=== PATIENT | male | born 1955 | race Caucasian/White ===

== ENCOUNTER 2022-03-07 10:42 | Inpatient (IN) | payer OTHER ==
--- OUTSIDE RECORDS SUMMARY | 2022-03-07 10:49 | XMS REPORT | Clinical Summary ---
:1955 Author Organization 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 Opioid use disorder, mild, in sustained remission multivitamin tab Take 1 tablet by 30 tablet 0 01/20/20 Active tabletIndications: mouth daily. 21 Aspiration into lower respiratory tract atorvastatin Take 40 mg by 0 Act ceci (LIPITOR) 40 mg mouth daily. tablet budesonide Inhale 0.25 mg 0 Acti ve (PULMICORT) 0.25 by nebulization mg/2 mL nebulizer daily. solutionIndications: severe chronic obstructive pulmonary disease umeclidinium-vilante Inhale by mouth. 0 Active roL 62.5-25 mcg/actuation dsdv loperamide (IMODIUM) Take 1 capsule 0 02/28/20 Active 2 mg (2 mg) by mouth 21 capsuleIndications: every 8 (eight) Aspiration into hours as needed lower respiratory for diarrhea. tract Buy over the counter megestrol (MEGACE) Give 400 mg per 0 Active 40 mg/mL suspension G-tube. baclofen (LIORESAL) Take 1 tablet 60 tablet 0 05/17/20 Active 10 mg (10 mg) by mouth 21 tabletIndications: every 12 Muscle spasm of back (twelve) hours as needed for muscle spasms. pantoprazole TAKE 1 TABLET(40 30 tablet 6 07/27/19 Active (PROTONIX) 40 mg EC MG) BY MOUTH 22 tabletIndications: DAILY Aspiration into lower respiratory tract memantine (NAMENDA) TAKE 1 TABLET(10 60 tablet 0 08/13/19 Active 10 mg MG) BY MOUTH 22 tabletIndications: TWICE DAILY Small cell carcinoma, NOS of upper lobe, lung <Right> acetaminophen-codein Take 1 tablet by 30 tablet 0 09/08/19 Active e (TYLENOL #3) 300 mouth every 6 22 mg-30 mg (six) hours as tabletIndications: needed for mild Neoplasm related pain or moderate pain (acute) pain (Marj (chronic) ZOHREH Garza). ipratropium-albutero Inhale 1 vial (3 270 mL 1 10/25/19 Active l (DUO-NEB) 0.5 mL) by 22 mg-2.5 mg/3 mL nebulization nebulizer every 6 (six) solutionIndications: hours as needed Pneumocystosis for wheezing or pneumonia shortness of breath. aluminum-magnesium Take 15 mL by 0 10/25/19 Active hydroxide-simethicon mouth every 4 22 e (MAALOX PLUS) 200 (four) hours as mg-200 mg-20 mg/5 mL needed for suspensionIndication indigestion or s: Gastroesophageal heartburn. reflux disease guaiFENesin Take 1 tablet 14 tablet 0 10/25/19 Acti ve (MUCINEX) 600 mg 12 (600 mg) by 22 hr mouth every 12 tabletIndications: (twelve) hours. Pneumonia due to other Gram-negative bacteria sucralfate Take 10 mL 420 mL 0 10/25/19 Active (CARAFATE) 100 mg/mL (1,000 mg) by 22 suspensionIndication mouth 4 (four) s: Gastroesophageal times a day reflux disease before meals and nightly. QUEtiapine Take 3 tablets 90 tablet 0 10/25/19 Acti ve (SEROquel) 25 mg (75 mg) by mouth 22 tabletIndications: at bedtime. Adjustment disorder with mixed anxiety and depressed mood Ventolin HFA 90 Inhale 1 puff by 8 g 0 10/25/19 Active mcg/actuation mouth every 6 22 inhalerIndications: (six) hours as Pneumonia due to needed for other Gram-negative wheezing or bacteria shortness of breath. levoFLOXacin Take 1 tablet 7 tablet 0 11/03/19 Act ceci (Levaquin) 500 mg (500 mg) by 22 tabletIndications: mouth daily. Upper respiratory infection, not otherwise specified amoxicillin-clavulan Take 1 tablet 14 tablet 0 11/14/19 Active ate (Augmentin) 875 (875 mg) by 22 mg-125 mg per mouth twice tabletIndications: daily. Upper respiratory infection, not otherwise specified QUEtiapine Take 1 tablet 60 tablet 0 12/29/19 Activ e (SEROquel) 25 mg (25 mg) by mouth 22 tabletIndications: every 6 (six) Anxiety disorder due hours as needed to a general medical for non-violent condition agitation (anxiety sleep). guaiFENesin Take 1 tablet 60 tablet 11 10/09/19 Expi red (MUCINEX) 600 mg 12 (600 mg) by 21 022 hr mouth every 12 tabletIndications: (twelve) hours. COVID-19, Emphysema ipratropium-albutero USE 1 VIAL VIA 270 mL 1 12/01/1909/29 Discontinued l (DUO-NEB) 0.5 NEBULIZER EVERY 022 (Reorder) mg-2.5 mg/3 mL 6 HOURS nebulizer NEEDED FOR solutionIndications: WHEEZING OR Pneumocystosis SHORTNESS OF pneumonia BREATH FOR UP TO 30 DAYS nut.tx.impaired Give 250 mL per 0 11/18/19 Discontinued digestive fxn G-tube 3 (three) (Stop Taking at (peptamen 1.5) times a day. Ariella salazar) enteral tube feedingIndications: Tube feeding diet promethazine Take 12.5 mg by 0 D iscontinued (PHENERGAN) 12.5 mg mouth every 6 022 (Stop Taking at tablet (six) hours as Disch arge) needed. ferrous sulfate 325 Take 1 tablet by 0 01/19/2016/08 Discontinued (65 FE) MG EC tablet mouth daily. (Therapy completed) aspirin 81 mg EC Take 81 mg by 0 Discontinued tablet mouth as needed. 022 (St op Taking at Discharge) OLANZapine (ZyPREXA) Take 1 tablet 30 tablet 0 02/28/2003/27 Discontinued 2.5 mg (2.5 mg) by (Reorder ) tabletIndications: mouth every 6 Adjustment disorder (six) hours as with anxiety needed for anxiety, sleep or non-violent agitation. acetaminophen-codein Take 1 tablet by 36 tablet 0 02/28/20 Discontinued e (TYLENOL #3) 300 mouth every 4 (Reorder) mg-30 mg (four) hours as tabletIndications: needed (pain). Chronic pain due to malignant neoplastic disease enoxaparin (Lovenox) Inject 0.5 mL 60 Syringe 2 02/28/2008/28 Discontinued 60 mg/0.6 mL (50 mg) under (St op Taking at prefilled the skin every Disch arge) syringeIndications: 12 (twelve) Other pulmonary hours. embolism with acute cor pulmonale oral mucosal Apply 1 application to the m outh or throat as needed for dry mouth. Buy over the counter. 0 02/28/20 Discon tinued (BIOTENE) use as directed (St op Taking at gelIndications: Disc harge) Aspiration into lower respiratory tract pantoprazole Take 1 tablet 30 tablet 0 02/29/20 Dis continued (PROTONIX) 40 mg EC (40 mg) by mouth (Reorder) tabletIndications: daily. Aspiration into lower respiratory tract senna (SENOKOT) 8.6 Take 2 tablets 0 02/28/2011/13 Discontinued mg by mouth 2 (two) ( erapy tabletIndications: times a day as completed) Aspiration into needed for lower respiratory constipation. tract Buy over the counter wound dressings Apply topically 0 02/28/20 Discontinued (TRIAD HYDROPHILIC) to affected (Therapy pste topical area(s) as comple lakhwinder) pasteIndications: needed (wound Aspiration into care/ buttocks). lower respiratory tract fluconazole Take 1 tablet 11 tablet 0 03/03/20 Expi red (DIFLUCAN) 100 mg (100 mg) by tabletIndications: mouth daily for Small cell carcinoma 12 days. of upper lobe of right lung, Aspergillosis with pneumonia, Pneumocystosis pneumonia, Acute kidney injury due to hypovolemia lidocaine Swish and 100 mL 0 03/02/20 Discontinu ed (XYLOCAINE) 20 mg/mL swallow 10 mL (Therapy (2%) viscous every 8 (eight) c ompleted) solutionIndications: hours as needed Small cell carcinoma (throat pain) of upper lobe of for up to 30 right lung, doses. Aspergillosis with pneumonia, Pneumocystosis pneumonia, Acute kidney injury due to hypovolemia memantine (Namenda) Take 1 tablet 60 tablet 0 03/02/20 Discontinued 10 mg (10 mg) by mouth tabletIndications: twice daily. 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 baclofen 5 mg Take 5 mg by 60 tablet 0 03/02/20 Dis continued tabIndications: mouth every 12 (Reorder) Muscle spasm of back (twelve) hours. QUEtiapine 3 tablets (75 270 tablet 0 03/06/20 Disc ontinued (SEROquel) 25 mg mg) by feeding (Reorder) tabletIndications: tube route at Aspiration into bedtime. lower respiratory tract QUEtiapine 3 tablets (75 270 tablet 1 03/07/20 Disc ontinued (SEROquel) 25 mg mg) by feeding (Reorder) tabletIndications: tube route at Aspiration into bedtime. lower respiratory tract baclofen 5 mg Take 5 mg by 60 tablet 2 03/08/20 Dis continued tabIndications: mouth every 12 (Dose Muscle spasm of back (twelve) hours. adjustment) baclofen (LIORESAL) Take 1/2 tablet 30 tablet 0 03/08/2003/02 0 Discontinued 10 mg (5 mg) PO q12 (Reord er) tabletIndications: PRN back spasm. Muscle spasm of back amoxicillin-clavulan Take 1 tablet 14 tablet 0 03/27/2004/07 Discontinued ate (Augmentin) 875 (875 mg) by (Reorder) mg-125 mg per mouth twice tabletIndications: daily. Upper respiratory infection, not otherwise specified OLANZapine (ZyPREXA) Take 1 tablet 30 tablet 0 03/27/2004/25 Discontinued 2.5 mg (2.5 mg) by (Reorder ) tabletIndications: mouth every 6 Adjustment disorder (six) hours as with anxiety needed for anxiety, sleep or non-violent agitation. acetaminophen-codein Take 1 tablet by 60 tablet 0 03/27/20 Discontinued e (TYLENOL #3) 300 mouth every 4 (Reorder) mg-30 mg (four) hours as tabletIndications: needed (pain). Chronic pain due to malignant neoplastic disease baclofen (LIORESAL) Take 1/2 tablet 30 tablet 0 03/29/2003/31 Discontinued 10 mg (5 mg) PO q12 (Reord er) tabletIndications: PRN back spasm. Muscle spasm of back pantoprazole Take 1 tablet 30 tablet 3 03/29/20 Dis continued (PROTONIX) 40 mg EC (40 mg) by mouth (Reorder) tabletIndications: daily. Aspiration into lower respiratory tract memantine (NAMENDA) TAKE 1 TABLET(10 60 tablet 0 04/10/2013/08 Discontinued 10 mg MG) BY MOUTH (Reorde r) tabletIndications: TWICE DAILY Small cell carcinoma, NOS of upper lobe, lung <Right> amoxicillin-clavulan Take 1 tablet 14 tablet 0 04/07/2004/13 Discontinued ate (Augmentin) 875 (875 mg) by (Reorder) mg-125 mg per mouth twice tabletIndications: daily. Upper respiratory infection, not otherwise specified amoxicillin-clavulan Take 1 tablet 14 tablet 0 04/13/2008/22 Discontinued ate (Augmentin) 875 (875 mg) by (Therapy mg-125 mg per mouth twice comp leted) tabletIndications: daily. Upper respiratory infection, not otherwise specified memantine (Namenda) 5 mg a day x 1 60 tablet 6 04/23/2009/07 Discontinued 10 mg week, then 5 mg (Sto p Taking at tabletIndications: twice daily x 1 Discharge) Small cell week, then 10 mg carcinoma, NOS of every am and 5 upper lobe, lung mg every pm x 1 <Right> week, then 10 mg twice daily for 6 months OLANZapine (ZyPREXA) Take 1 tablet 30 tablet 0 04/25/2004/27 Discontinued 2.5 mg (2.5 mg) by (Dose tabletIndications: mouth every 6 adjustment) Adjustment disorder (six) hours as with anxiety needed for anxiety, sleep or non-violent agitation. baclofen (LIORESAL) Take 1/2 tablet 30 tablet 0 04/25/2004/30 Discontinued 10 mg (5 mg) PO q12 (Dose tabletIndications: PRN back spasm. adjustment) Muscle spasm of back OLANZapine (ZyPREXA) Take 1 tablet 60 tablet 0 04/27/2007/02 Discontinued 2.5 mg (2.5 mg) by (Reorder ) tabletIndications: mouth 2 (two) Insomnia, not times a day as otherwise specified needed for sleep or non-violent agitation. amoxicillin-clavulan Take 1 tablet 14 tablet 0 06/11/2006/27 Discontinued ate (Augmentin) 875 (875 mg) by (Reorder) mg-125 mg per mouth twice tabletIndications: daily. Upper respiratory infection, not otherwise specified amoxicillin-clavulan Take 1 tablet 20 tablet 0 06/27/2008/14 Discontinued ate (Augmentin) 875 (875 mg) by mg-125 mg per mouth twice tabletIndications: daily. Upper respiratory infection, not otherwise specified acetaminophen-codein Take 1 tablet by 60 tablet 0 06/27/20 Discontinued e (TYLENOL #3) 300 mouth every 4 mg-30 mg (four) hours as tabletIndications: needed (pain). Chronic pain due to malignant neoplastic disease OLANZapine (ZyPREXA) Take 1 tablet 60 tablet 0 07/02/1909/07 Discontinued 2.5 mg (2.5 mg) by 022 (Stop Ta tristen at tabletIndications: mouth 2 (two) Discharge) Insomnia, not times a day as otherwise specified needed for sleep or non-violent agitation. QUEtiapine Take 3 tablets 90 tablet 1 07/11/19 Disc ontinued (SEROquel) 25 mg (75 mg) by mouth 22 022 (Reorder) tabletIndications: at bedtime. Adjustment disorder with mixed anxiety and depressed mood pantoprazole Take 1 tablet 90 tablet 3 07/11/19 Dis continued (PROTONIX) 40 mg EC (40 mg) by mouth 022 tabletIndications: daily. Aspiration into lower respiratory tract memantine (Namenda) 5 mg a day x 1 60 tablet 6 08/13/1909/07 Discontinued 10 mg week, then 5 mg (Sto p Taking at tabletIndications: twice daily x 1 Discharge) Small cell week, then 10 mg carcinoma, NOS of every am and 5 upper lobe, lung mg every pm x 1 <Right> week, then 10 mg twice daily for 6 months HYDROcodone-acetamin Take 1 tablet by 100 tablet 0 08/14/19 0 Discontinued ophen ([place]) 5 mouth every 6 022 (Reorder) mg-325 mg per (six) hours as tabletIndications: needed for Small cell moderate pain carcinoma, NOS of for up to 30 upper lobe, lung days. <Right>, Adjustment disorder with mixed anxiety and depressed mood QUEtiapine Take 3 tablets 90 tablet 1 08/14/19 Disc ontinued (SEROquel) 25 mg (75 mg) by mouth 22 022 (Reorder) tabletIndications: at bedtime. Adjustment disorder with mixed anxiety and depressed mood HYDROcodone-acetamin Take 1 tablet by 100 tablet 0 08/18/19 0 Discontinued ophen ([place]) 5 mouth every 6 022 (Stop Taking at mg-325 mg per (six) hours as D ischarge) tabletIndications: needed for Small cell moderate pain carcinoma, NOS of for up to 30 upper lobe, lung days. <Right>, Adjustment disorder with mixed anxiety and depressed mood amoxicillin-clavulan Take 1 tablet 6 tablet 0 09/08/1909/07 Discontinued ate (AUGMENTIN) 875 (875 mg) by 22 022 mg-125 mg per mouth every 12 tabletIndications: (twelve) hours Community acquired for 3 days. pneumonia amoxicillin-clavulan Take 1 tablet 6 tablet 0 09/08/1909/07 Discontinued ate (AUGMENTIN) 875 (875 mg) by 22 022 mg-125 mg per mouth every 12 tabletIndications: (twelve) hours Community acquired for 3 days. pneumonia amoxicillin-clavulan Take 1 tablet 6 tablet 0 09/08/1909/10 ate (AUGMENTIN) 875 (875 mg) by 22 022 mg-125 mg per mouth every 12 tabletIndications: (twelve) hours Community acquired for 3 days. pneumonia QUEtiapine Take 1 tablet 30 tablet 0 09/08/19 Disco ntinued (SEROquel) 25 mg (25 mg) by mouth 22 022 (Reorder) tabletIndications: every 6 (six) Anxiety disorder due hours as needed to a general medical for non-violent condition agitation. amoxicillin-clavulan Take 1 tablet 10 tablet 0 10/11/1910/11 Discontinued ate (Augmentin) 875 (875 mg) by 22 022 (Reorder) mg-125 mg per mouth twice tabletIndications: daily for 5 Decompensated COPD days. with acute exacerbation amoxicillin-clavulan Take 1 tablet 14 tablet 0 10/12/1910/24 Discontinued ate (Augmentin) 875 (875 mg) by 22 022 (Stop Taking at mg-125 mg per mouth twice Disc harge) tabletIndications: daily for 7 Upper respiratory days. infection, not otherwise specified fluconazole Take 1 tablet 4 tablet 0 10/26/19 Expi red (Diflucan) 200 mg (200 mg) by 22 022 tabletIndications: mouth daily for Candidal esophagitis 4 days. QUEtiapine Take 1 tablet 60 tablet 0 12/02/19 Disco ntinued (SEROquel) 25 mg (25 mg) by mouth 22 022 (Reorder) tabletIndications: every 6 (six) Anxiety disorder due hours as needed to a general medical for non-violent condition agitation (anxiety sleep). Active Problems Problem Noted Date Anemia in malignant neoplastic disease 10/16/2021 Swallowing painful 10/15/2021 Overview: Added automatically from request for rosa maria shah [id number] Community acquired pneumonia 09/03/2021 Small cell carcinoma of lung 05/17/2021 Overview: Added automatically from request for rosa maria shah [id number] Family education about pain management 05/08/2021 History of radiation therapy 02/16/2021 Pressure-induced deep tissue damage of other site 02/2021 Overview: Site: Coccyx Sepsis 01/04/2021 Pulmonary embolism 11/17/2020 Stage 1 pressure ulcer of other site 11/14/2020 Overview: Left ear- 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 related from nasal cannula Tube feeding diet 10/21/2020 Pneumonia due to other Gram-negative bacteria 10/20/19 Sequelae of hyperalimentation 10/08/2020 Adverse effect of glucocorticoids and synthetic analog ues 09/19/2020 Current use of insulin 09/19/2020 Anxiety disorder due to a general medical condition Disorder of fluid AND/OR electrolyte 09/04/2020 Sinus tachycardia 09/04/2020 Pleuritic pain 08/25/2020 Anemia of chronic disease 08/21/2020 Acute and chronic respiratory failure with hypoxia Failure to thrive 08/21/2020 Other severe protein-calorie malnutrition 08/11/2020 Dyspnea 08/10/2020 Decompensated COPD with acute exacerbation 07/30/2020 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 Discussed case with Dr. Hernandez. Will refe r patient to thoracic medical oncology and will allow them to determine whether repeat biopsy is indicated and determine further course of treatment. Discussed with patient and patient is in agreement. Patient will be placed on pending status . Other emphysema Adjustment disorder with mixed anxiety and depressed m ood Chronic pain due to malignant neoplastic disease Slow transit constipation Other psychological or physical stress, not elsewhere classified Personal history of COVID-19 Resolved Problems Problem Noted Date Resolved Date Acute kidney injury due to hypovolemia 02/16/2021 0 09/04/2021 Hypovolemia 02/16/2021 09/04/2021 High troponin I level 02/16/2021 09/04/2021 Hyperkalemia 02/16/2021 09/04/2021 Aspergillosis with pneumonia 10/25/2020 09/04/2021 Multiple lung abscesses 10/20/2020 09/04/2021 Drug induced diabetes mellitus with hyperglycemia 09/19/2020 09/04/2021 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 09/19/2020 09/04/2021 Pneumocystosis pneumonia 09/04/2020 09/04/2021 Cytomegalovirus infection 09/04/2020 09/04/2021 Diarrhea 08/21/2020 09/04/2021 Aspiration into lower respiratory tract 08/10/2020 09/04/2021 Overview: Added automatically from request for rosa maria pablo [id number] COVID-19 07/29/2020 09/04/2021 Amaurosis fugax 10/26/2017 09/04/2021 Cancer-related fatigue 09/04/2021 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 Tomography - chest abnormal 09/04/2021 Encounters Date Type Specialty Care Team Description 12/28/2021 Nurse Triage Constantine Willis NP 12/28/2021 Documentation Thoracic Medicine Henrique Plasencia MD 12/20/2021 Telephone Lolita Gonzales RN 12/11/2021 Telephone Bibiana Carrillo Oncology C, ELLA 12/05/2021 Telephone Thoracic Medicine Kasie Mehta, ELLA 12/01/2021 Nurse Triage Erin Olivares RN 11/13/2021 Orders Only Thoracic Medicine Amber Upper resp iratory MADALYN Douglas infection, no t otherwise speci fied (Primary Dx) 11/13/2021 Telephone Thoracic Medicine Daisy Shaffer, ELLA 11/02/2021 Orders Only Thoracic Medicine Fito Gutierres Upper resp iratory MD Kang infection, not otherwise speci fied (Primary Dx) 11/02/2021 Nurse Triage Karishma Chu, RN 10/24/2021 Nurse Triage Arcadio Paz, ELLA 10/19/2021 Surgery Endoscopy Edwige Leonard UPPER GASTROI NTESTINAL MD Ernesto ENDOSCOPY OF ESOPHAGUS, STOM ACH, AND DUODENUM WI TH BIOPSY 10/19/2021 Anesthesia Event Endoscopy Jenise Degroot MD Silva, Jason M, CRNA 10/18/2021 Prep for Surgery Endoscopy O'Shena Taylor Swallowi ng painful MD Terese (Primary Dx) 10/15/2021 Hospital Encounter GIM/Phase 1 Faiz Verónica, Pleuriti c pain (Primary Dx); - Small cell carcinoma of lung; 10/24/2021 [place], [place], Decompensate d COPD with acute exacerbation; DO Swallowing painful; Jluis, Ed, Pneumocystosis pneumonia; TolentinoRonnie wood V., Adjustment d isorder with mixed anxiety and depressed mood; Gastroesophageal reflux disease; Alexus, Pneumonia due t o other Gram-negative bacteria; Michelle Carr, Failure to t hrive; Candidal esopha gitis 10/15/2021 Travel 10/11/2021 Orders Only Thoracic Medicine Amber, Upper resp iratory infection, not otherwise specified (Primary Dx); MADALYN Douglas Decompensated COPD with acute exacerbation 10/10/2021 Orders Only Thoracic Medicine Shantal Patiño, Decompe nsated COPD MD Deshawn with acute exacerbation (P rimary Dx) 10/10/2021 Nurse Triage Stella Moran RN 10/10/2021 Telephone Thoracic Medicine Ileana Thrasher RN 09/07/2021 Travel 09/03/2021 Hospital Encounter Uro/Ortho/GI Faiz Verónica, Pleuriti c pain (Primary Dx); - Dyspnea; 09/07/2021 Aditya Leonard, Small cell car cinoma of lung; Community acquired pneumonia; Oh, Neoplasm relate d pain (acute) (chronic); MD Enriqueta Anxiety disorde r due to a general medical condition 09/03/2021 Travel 09/03/2021 Telephone Thoracic Medicine Michael Lopez Cough; S hortness of D, RN Breath 08/22/2021 Telephone Thoracic Medicine Stella Clark ANP 08/22/2021 Orders Only Thoracic Medicine Stella Clark ANP 08/20/2021 Orders Only Pulmonology Lela Sanon APN (Primary Dx) 08/18/2021 Orders Only Thoracic Medicine Stella Clark ANP 08/18/2021 Orders Only Thoracic Medicine Henrique Plasencia Small c ell carcinoma, NOS of upper lobe, lung <Right>; MD Nickie Adjustment diso rder with mixed anxiety and depressed mood 08/17/2021 Telephone Thoracic Medicine Zulema Cedillo RN 08/14/2021 Office Visit German Piedra, Actinic keratos is (Primary Dx); MD Kang Personal histor y of other malignant neoplasm of skin 08/14/2021 Office Visit Thoracic Medicine Henrique Plasencia Small c ell carcinoma, NOS of upper lobe, lung <Right>; MD Nickie Adjustment diso rder with mixed anxiety and depressed mood 08/14/2021 Orders Only Pulmonology Ailyn Banda FNP (Primary Dx) 08/14/2021 Orders Only Thoracic Medicine Sarah Duckworth Small c ell carcinoma, M, GLOBAL ACCOUNT DIRECTOR NOS of upper lo be, lung <Right> (P rimary Dx) 08/14/2021 Travel 08/13/2021 Hospital Encounter Radiation Ronan Marr MD Non-sma ll cell lung Oncology cancer <Unspeci fied side> 08/13/2021 Hospital Encounter Radiology Nicole Del Rosario Non-small cell lung Chunyi, GLOBAL ACCOUNT DIRECTOR cancer <Unspeci fied side> 08/13/2021 Orders Only Radiation Nicole Del Rosario Small cell carc inoma, Oncology Chunyi, GLOBAL ACCOUNT DIRECTOR NOS of upper lo be, lung <Right> 08/13/2021 Travel 08/11/2021 Refill Thoracic Medicine Henrique Plasencia Adjustm ent disorder VMD Yancy with mixed anxi ety and depressed mood 08/07/2021 Orders Only Abdirizak Ruiz, Personal his tory of MD other malignant neoplasm of ski n (Primary Dx) 07/27/2021 Telephone Radiation Jarrett, Oncology Génesis Ann RN 07/27/2021 Refill Thoracic Medicine Amber, Aspiration into lower MADALYN Douglas respiratory t ract 07/26/2021 Telephone Thoracic Medicine jyoti Manzo ts (see Génesis Trevino, RN documenation) 07/26/2021 Orders Only Radiation Mendez, Oncology Jackie, ONELIA 07/26/2021 Refill Thoracic Medicine Amber, Upper resp iratory MADALYN Douglas infection, no t otherwise speci fied 07/19/2021 Telephone Thoracic Medicine Daisy Shaffer, ELLA 07/12/2021 Telephone Thoracic Medicine Stella Clark ANP 07/11/2021 Orders Only Thoracic Medicine Amber, Adjustment disorder with mixed anxiety and depressed mood (Primary Dx); MADALYN Douglas Aspiration in to lower respiratory tract 07/11/2021 Telephone Thoracic Medicine Ileana Thrasher RN 07/02/2021 Orders Only Thoracic Medicine Amber, Insomnia, not MADALYN Douglas otherwise spe cified 06/27/2021 Orders Only Thoracic Medicine Amber, Upper resp iratory infection, not otherwise specified; MADALYN Douglas Chronic pain due to malignant neoplastic disease 06/25/2021 Orders Only Thoracic Medicine Stella Clark ANP 06/14/2021 Telephone Lolita Gonzales RN 06/11/2021 Orders Only Thoracic Medicine Amber, Upper resp iratory infection, not otherwise specified (Primary Dx); MADALYN Douglas Small cell ca rcinoma, NOS of upper lobe, lung <Right> 06/09/2021 Refill Thoracic Medicine Yudith Rivas Upper r espiratory D, RN infection, not otherwise speci fied 06/06/2021 Telephone Thoracic Medicine Jyoti Manzo, RN 05/21/2021 Surgery Endoscopy Neha Tobin, REPLACEMENT O F GASTROSTOMY TUB E, PERCUTANEOUS, I NCLUDES REMOVAL, WHEN PERFORMED, WITH OUT IMAGING OR ENDO SCOPIC GUIDANCE; NOT REQUIRING ROSA ION OF GASTROSTOMY TRA CT 05/21/2021 Hospital Encounter Endoscopy Neha Tobin MD 05/21/2021 Travel 05/17/2021 Prep for Surgery Endoscopy Elmira Lanier benita l carcinoma N, 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 OFFICER of lung <Right side> (Primary Dx) 05/17/2021 Orders Only Thoracic Medicine Amber, Muscle spa sm of back (Primary Dx); MADALYN Douglas Anxiety, not otherwise specified; Small cell carc inoma of upper lobe of right lung 05/16/2021 Orders Only Thoracic Medicine Amber, Small cell carcinoma MADALYN Douglas of lung <Righ t side> (Primary Dx) 05/16/2021 Telephone Lolita Gonzales, ELLA 05/16/2021 Telephone Lolita Gonzales RN 05/14/2021 Orders Only Giovanna Orellana Basal cell carc inoma MD Flores of nose (Primar y Dx) 04/27/2021 Orders Only Thoracic Medicine Ambre, Insomnia, not MADALYN Douglas otherwise spe cified (Primary Dx) 04/25/2021 Orders Only Thoracic Medicine Amber, Adjustment disorder with anxiety; MADALYN Douglas Muscle spasm of back 04/23/2021 Hospital Encounter Radiation Ronan Marr MD Small c ell carcinoma, Oncology NOS of upper lo be, lung <Right> 04/23/2021 Orders Only Radiation Del Rosario, Nicole Non-small cell lung Oncology Chunyi, GLOBAL ACCOUNT DIRECTOR cancer <Unspeci fied side> (Primary Dx) 04/23/2021 Orders Only Radiation Del Rosario, Nicole Small cell carc inoma, Oncology Chunyi, GLOBAL ACCOUNT DIRECTOR NOS of upper lo be, lung <Right> 04/23/2021 Orders Only Radiation Del Rosario, Nicole Oncology Chunyi, GLOBAL ACCOUNT DIRECTOR 04/23/2021 Orders Only Radiation Del Rosario, Nicole Non-small cell lung Oncology Chunyi, GLOBAL ACCOUNT DIRECTOR cancer <Unspeci fied side> (Primary Dx) 04/23/2021 Travel 04/20/2021 Hospital Encounter Radiology Henrique Plasencia cell carcinomaNickie MD NOS of upper lo be, lung <Right> 04/20/2021 Ancillary Procedure Radiology Henrique Plasencia cell carcinomaNickie MD NOS of upper lo be, lung <Right> 04/20/2021 Travel 04/16/2021 Hospital Encounter Speech Pathology Sravan, Eliz pensated COPD with acute exacerbation; Mary Beth L, Aspergillosis w ith pneumonia 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 04/16/2021 Office Visit Hematology Kang Monreal, Other pulmon dontesally CARDENAS embolism with a cute cor pulmonale 04/16/2021 Travel 04/13/2021 Orders Only Thoracic Medicine Wayne Giraldo, Upper res piratory PharmD infection, not otherwise speci fied 04/07/2021 Orders Only Thoracic Medicine Shantal Patiño, Upper r espiratory MD Deshawn infection, not otherwise speci fied 04/07/2021 Nurse Triage Juan Taylor, RN 04/05/2021 Orders Only Head and Neck Amber, Medical Oncology MADALYN Douglas 04/04/2021 Refill Thoracic Surgery Enriqueta Gonzalez Chronic pain due to A, RN malignant neopl astic disease 04/04/2021 Refill Thoracic Medicine Sarika Sung K, Small ce ll carcinoma, MERCHANDISE EXECUTION LEADER NOS of upper lo be, lung <Right> 04/03/2021 Nutrition Nutrition Alina Marr, Decompensated COPD with acute exacerbation; RD Aspergillosis w ith pneumonia 03/30/2021 Orders Only Thoracic Medicine Stella Clark ANP 03/29/2021 Orders Only Thoracic Medicine Amber, Muscle spa sm of back; MADALYN Douglas Aspiration in to lower respiratory tract 03/27/2021 Orders Only Thoracic Medicine Amber, Upper resp iratory infection, not otherwise specified (Primary Dx); MADALYN Douglas Adjustment di sorder with anxiety; Chronic pain du e to malignant neoplastic disease 03/27/2021 Refill Thoracic Medicine Jacque, Chronic pa in due to malignant neoplastic disease; Nanette Stewart APN Adjustment dis order with anxiety 03/09/2021 Orders Only Thoracic Medicine Tanja Perez J, PharmD 03/08/2021 Orders Only Thoracic Medicine Amber, Muscle spa sm of back MADALYN Douglas 03/07/2021 Orders Only Thoracic Medicine Tanja Perez Aspiratio n into lower J, PharmD respiratory tra ct 03/07/2021 Documentation Benedicto Lang, Follow-up (f/ u voicemail messa ge) 03/07/2021 Refill Infectious Yudith Rivas Aspiration i nto lower Diseases Fallno, RN respiratory tra ct 03/07/2021 Documentation Sahara Langley, ELLA after 03/07/2021 Immunizations Name Administration Dates Next Due Bamlanivimab 07/29/2020 () Influenza Split High Dose 03/29/2020 Preservative Free IM Zoster Recombinant 03/29/2020 remdesivir 08/22/2020, 08/22/2020, 08/21/2020, 08/20/2020, 08/19/2020, 08/18/2020, 08/03/2020, 08/02/2020, 08/02/2020, 08/01/2020, 07/31/2020, 07/30/2020 Surgical History Surgery Date Site/Laterality Comments [place] EGD BALLOON DILATION 09/29/2020 Esophagus/N/A Procedur e: UPPER ESOPHAGUS <30 MM DIAM GASTROINTE STINAL ENDOSCOPY WITH BALLOON DILATION OF ESOPHAGUS; Surgeon: Owen real MD; Location: MAIN E NDOSCOPY; Service: GASTROE NTEROLOGY [place] EGD PERCUTANEOUS 09/29/2020 Abdomen/N/A Procedure: U PPER PLACEMENT GASTROSTOMY TUBE GASTR OINTESTINAL ENDOSCOPY WITH DIRECTED PLACEME NT OF PERCUTANEOUS (PE G) GASTROSTOMY TUBE; Surgeon: Desiree Leonard MD; Location: MAIN E NDOSCOPY; Service: GASTROE NTEROLOGY [place] BRNCHSC W/BRNCL ALVEOLAR 10/23/2020 N/A Proc edure: FLEXIBLE LAVAGE BRONCHOSCOPY WIT H BRONCHIAL ALVEOLAR LAVAGE; Surgeon: Krys Brewer MD; Lo cation: MAIN PULM PROC; Servi ce: PULMONARY [place] PERQ REPLACEMENT GTUBE 05/21/2021 N/A Proced ure: REPLACEMENT OF NOT REQ REVJ GSTRST TRC GASTROST RANDEE TUBE, PERCUTANEOUS, INCLUDES REMOVAL , WHEN PERFORMED, WITHO UT IMAGING OR ENDOSCOPIC DENNIS NCE; NOT REQUIRING REVISI ON OF GASTROSTOMY TRAC T; Surgeon: Neha Tobin MD ; Location: MAIN ENDOSCOPY; Service: GASTROENTEROLOGY [place] EGD TRANSORAL BIOPSY 10/19/2021 Esophagus/N/A Procedur e: UPPER SINGLE/MULTIPLE GASTROINTESTINAL ENDOSCOPY OF ESOPHAGUS, STOMA CH, AND DUODENUM WITH BI OPSY; Surgeon: Edwige zimmerman MD; Location: MAIN E NDOSCOPY; Service: GASTROE NTEROLOGY Medical History Medical History Date Comments Emphysema Basal cell carcinoma of skin 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 04/21/2020 Chronic alcoholism in remission Opioid abuse, in remission Drug induced diabetes mellitus with hyperglycemia 09/19/2020 Family History Medical History Relation Name Comments Emphysema Maternal Grandfather Lung cancer Sister Relation Name Status Comments Maternal Grandfather Sister Social History Tobacco Use Types Packs/Day Years Used Date Former Smoker Cigarettes 1.5 1969 - 2019 Smokeless Tobacco: Never Used Alcohol Use Standard Drinks/Week Comments Not Currently 0 (1 standard drink = 0.6 oz pure .5 gal zachary of vodka daily 15 years alcohol) ago Alcohol Habits Answer Date Recorded How often do you have a drink Not asked containing alcohol? How many drinks containing alcohol do Not asked you have on a typical day when you are drinking? How often do you have six or more Not asked drinks on one occasion? Comment: .5 gallon of vodka daily 15 years 2019 ago Sex Assigned at Date Recorded Not on file Job Start Date Occupation Industry Not on file Not on file Not on file Obstetrics History Last Filed Vital Signs Vital Sign Reading Time Taken Comments Blood Pressure 119/78 10/24/2021 12:30 PM CDT Pulse 74 10/24/2021 4:41 PM CDT Temperature 36.9 C (98.4 F) 10/24/2021 11:48 AM CDT Respiratory Rate 18 10/24/2021 4:41 PM CDT Oxygen Saturation 96% 10/24/2021 12:30 PM CDT Inhaled Oxygen Concentration - - Weight 55 kg (121 lb 4.1 oz) 10/24/2021 4:00 AM CDT Height 167.6 cm (5' 6") 10/15/2021 9:57 AM CDT Body Mass Index 19.57 10/15/2021 9:57 AM CDT Plan of Treatment Health Maintenance Due Date Last Done Comments COVID-19 Vaccination (#1) 11/23/1960 Procedures Procedure Name Priority Date/Time Associated Comments Diagnosis FRACTIONATED BILIRUBIN AM 10/24/2021 5:53 Re sults for this AM CDT procedure are i n the results section. TOTAL PROTEIN AM 10/24/2021 5:53 Results for this AM CDT procedure are i n the results section. ASPARTATE AM 10/24/2021 5:53 Results for this AMINOTRANSFERASE AM CDT procedure a re in the results section. ALANINE AMINOTRANSFERASE AM 10/24/2021 5:53 Results for this AM CDT procedure are i n the results section. ALKALINE PHOSPHATASE AM 10/24/2021 5:53 Resu lts for this AM CDT procedure are i n the results section. ALBUMIN LEVEL AM 10/24/2021 5:53 Results for this AM CDT procedure are i n the results section. CALCIUM LEVEL TOTAL AM 10/24/2021 5:53 Resul ts for this AM CDT procedure are i n the results section. .GLOMERULAR FILTRATION AM 10/24/2021 5:53 Re sults for this RATE AM CDT procedure are i n the results section. SERUM CREATININE AM 10/24/2021 5:53 Results for this AM CDT procedure are i n the results section. ELECTROLYTE PANEL AM 10/24/2021 5:53 Results for this AM CDT procedure are i n the results section. BLOOD UREA NITROGEN AM 10/24/2021 5:53 Resul ts for this AM CDT procedure are i n the results section. GLUCOSE LEVEL AM 10/24/2021 5:53 Results for this AM CDT procedure are i n the results section. MANUAL DIFFERENTIAL AM 10/24/2021 5:53 Resul ts for this AM CDT procedure are i n the results section. Results CBC AM 10/24/2021 5:53 Results for this AM CDT procedure are i n the results section. PHOSPHORUS LEVEL AM 10/24/2021 5:53 Results for this AM CDT procedure are i n the results section. MAGNESIUM LEVEL AM 10/24/2021 5:53 Results f or this AM CDT procedure are i n the results section. COMPREHENSIVE METABOLIC AM 10/24/2021 5:53 PANEL AM CDT COMPLETE BLOOD COUNT W/ AM 10/24/2021 5:53 DIFFERENTIAL AM CDT OSCILLATORY PEP Routine 10/23/2021 8:00 AM CDT FRACTIONATED BILIRUBIN AM 10/23/2021 7:28 Re sults for this AM CDT procedure are i n the results section. TOTAL PROTEIN AM 10/23/2021 7:28 Results for this AM CDT procedure are i n the results section. ASPARTATE AM 10/23/2021 7:28 Results for this AMINOTRANSFERASE AM CDT procedure a re in the results section. ALANINE AMINOTRANSFERASE AM 10/23/2021 7:28 Results for this AM CDT procedure are i n the results section. ALKALINE PHOSPHATASE AM 10/23/2021 7:28 Resu lts for this AM CDT procedure are i n the results section. ALBUMIN LEVEL AM 10/23/2021 7:28 Results for this AM CDT procedure are i n the results section. CALCIUM LEVEL TOTAL AM 10/23/2021 7:28 Resul ts for this AM CDT procedure are i n the results section. .GLOMERULAR FILTRATION AM 10/23/2021 7:28 Re sults for this RATE AM CDT procedure are i n the results section. SERUM CREATININE AM 10/23/2021 7:28 Results for this AM CDT procedure are i n the results section. ELECTROLYTE PANEL AM 10/23/2021 7:28 Results for this AM CDT procedure are i n the results section. BLOOD UREA NITROGEN AM 10/23/2021 7:28 Resul ts for this AM CDT procedure are i n the results section. GLUCOSE LEVEL AM 10/23/2021 7:28 Results for this AM CDT procedure are i n the results section. MANUAL DIFFERENTIAL AM 10/23/2021 7:28 Resul ts for this AM CDT procedure are i n the results section. Results CBC AM 10/23/2021 7:28 Results for this AM CDT procedure are i n the results section. PHOSPHORUS LEVEL AM 10/23/2021 7:28 Results for this AM CDT procedure are i n the results section. MAGNESIUM LEVEL AM 10/23/2021 7:28 Results f or this AM CDT procedure are i n the results section. COMPREHENSIVE METABOLIC AM 10/23/2021 7:28 PANEL AM CDT COMPLETE BLOOD COUNT W/ AM 10/23/2021 7:28 DIFFERENTIAL AM CDT OSCILLATORY PEP Routine 10/22/2021 2:00 PM CDT OSCILLATORY PEP Routine 10/22/2021 8:00 AM CDT FRACTIONATED BILIRUBIN AM 10/22/2021 6:48 Re sults for this AM CDT procedure are i n the results section. TOTAL PROTEIN AM 10/22/2021 6:48 Results for this AM CDT procedure are i n the results section. ASPARTATE AM 10/22/2021 6:48 Results for this AMINOTRANSFERASE AM CDT procedure a re in the results section. ALANINE AMINOTRANSFERASE AM 10/22/2021 6:48 Results for this AM CDT procedure are i n the results section. ALKALINE PHOSPHATASE AM 10/22/2021 6:48 Resu lts for this AM CDT procedure are i n the results section. ALBUMIN LEVEL AM 10/22/2021 6:48 Results for this AM CDT procedure are i n the results section. CALCIUM LEVEL TOTAL AM 10/22/2021 6:48 Resul ts for this AM CDT procedure are i n the results section. .GLOMERULAR FILTRATION AM 10/22/2021 6:48 Re sults for this RATE AM CDT procedure are i n the results section. SERUM CREATININE AM 10/22/2021 6:48 Results for this AM CDT procedure are i n the results section. ELECTROLYTE PANEL AM 10/22/2021 6:48 Results for this AM CDT procedure are i n the results section. BLOOD UREA NITROGEN AM 10/22/2021 6:48 Resul ts for this AM CDT procedure are i n the results section. GLUCOSE LEVEL AM 10/22/2021 6:48 Results for this AM CDT procedure are i n the results section. MANUAL DIFFERENTIAL AM 10/22/2021 6:48 Resul ts for this AM CDT procedure are i n the results section. Results CBC AM 10/22/2021 6:48 Results for this AM CDT procedure are i n the results section. IMMUNOGLOBULIN A SERUM Now 10/22/2021 6:48 Re sults for this AM CDT procedure are i n the results section. IMMUNOGLOBULIN G SERUM Now 10/22/2021 6:48 Re sults for this AM CDT procedure are i n the results section. IGG SUBCLASSES, SERUM Now 10/22/2021 6:48 Res ults for this AM CDT procedure are i n the results section. PHOSPHORUS LEVEL AM 10/22/2021 6:48 Results for this AM CDT procedure are i n the results section. MAGNESIUM LEVEL AM 10/22/2021 6:48 Results f or this AM CDT procedure are i n the results section. COMPREHENSIVE METABOLIC AM 10/22/2021 6:48 PANEL AM CDT COMPLETE BLOOD COUNT W/ AM 10/22/2021 6:48 DIFFERENTIAL AM CDT OSCILLATORY PEP Routine 10/21/2021 8:00 PM CDT XR CHEST 1 VW Routine 10/21/2021 3:44 Results for this PM CDT procedure are i n the results section. FUNGAL BLOODCULTURE Now 10/21/2021 9:09 Resul ts for this AM CDT procedure are i n the results section. BLOODCULTURE Now 10/21/2021 9:09 Results for this AM CDT procedure are i n the results section. FRACTIONATED BILIRUBIN AM 10/21/2021 6:02 Re sults for this AM CDT procedure are i n the results section. TOTAL PROTEIN AM 10/21/2021 6:02 Results for this AM CDT procedure are i n the results section. ASPARTATE AM 10/21/2021 6:02 Results for this AMINOTRANSFERASE AM CDT procedure a re in the results section. ALANINE AMINOTRANSFERASE AM 10/21/2021 6:02 Results for this AM CDT procedure are i n the results section. ALKALINE PHOSPHATASE AM 10/21/2021 6:02 Resu lts for this AM CDT procedure are i n the results section. ALBUMIN LEVEL AM 10/21/2021 6:02 Results for this AM CDT procedure are i n the results section. CALCIUM LEVEL TOTAL AM 10/21/2021 6:02 Resul ts for this AM CDT procedure are i n the results section. .GLOMERULAR FILTRATION AM 10/21/2021 6:02 Re sults for this RATE AM CDT procedure are i n the results section. SERUM CREATININE AM 10/21/2021 6:02 Results for this AM CDT procedure are i n the results section. ELECTROLYTE PANEL AM 10/21/2021 6:02 Results for this AM CDT procedure are i n the results section. BLOOD UREA NITROGEN AM 10/21/2021 6:02 Resul ts for this AM CDT procedure are i n the results section. GLUCOSE LEVEL AM 10/21/2021 6:02 Results for this AM CDT procedure are i n the results section. MANUAL DIFFERENTIAL AM 10/21/2021 6:02 Resul ts for this AM CDT procedure are i n the results section. Results CBC AM 10/21/2021 6:02 Results for this AM CDT procedure are i n the results section. PHOSPHORUS LEVEL AM 10/21/2021 6:02 Results for this AM CDT procedure are i n the results section. MAGNESIUM LEVEL AM 10/21/2021 6:02 Results f or this AM CDT procedure are i n the results section. COMPREHENSIVE METABOLIC AM 10/21/2021 6:02 PANEL AM CDT COMPLETE BLOOD COUNT W/ AM 10/21/2021 6:02 DIFFERENTIAL AM CDT EKG, 12-LEAD (PORTABLE) Routine 10/21/2021 XR ABDOMEN 1 VW PORTABLE Routine 10/20/2021 2:19 Results for this PM CDT procedure are i n the results section. OSCILLATORY PEP Routine 10/20/2021 2:00 PM CDT OSCILLATORY PEP Routine 10/20/2021 8:00 AM CDT FRACTIONATED BILIRUBIN AM 10/20/2021 6:10 Re sults for this AM CDT procedure are i n the results section. TOTAL PROTEIN AM 10/20/2021 6:10 Results for this AM CDT procedure are i n the results section. ASPARTATE AM 10/20/2021 6:10 Results for this AMINOTRANSFERASE AM CDT procedure a re in the results section. ALANINE AMINOTRANSFERASE AM 10/20/2021 6:10 Results for this AM CDT procedure are i n the results section. ALKALINE PHOSPHATASE AM 10/20/2021 6:10 Resu lts for this AM CDT procedure are i n the results section. ALBUMIN LEVEL AM 10/20/2021 6:10 Results for this AM CDT procedure are i n the results section. CALCIUM LEVEL TOTAL AM 10/20/2021 6:10 Resul ts for this AM CDT procedure are i n the results section. .GLOMERULAR FILTRATION AM 10/20/2021 6:10 Re sults for this RATE AM CDT procedure are i n the results section. SERUM CREATININE AM 10/20/2021 6:10 Results for this AM CDT procedure are i n the results section. ELECTROLYTE PANEL AM 10/20/2021 6:10 Results for this AM CDT procedure are i n the results section. BLOOD UREA NITROGEN AM 10/20/2021 6:10 Resul ts for this AM CDT procedure are i n the results section. GLUCOSE LEVEL AM 10/20/2021 6:10 Results for this AM CDT procedure are i n the results section. MANUAL DIFFERENTIAL AM 10/20/2021 6:10 Resul ts for this AM CDT procedure are i n the results section. Results CBC AM 10/20/2021 6:10 Results for this AM CDT procedure are i n the results section. PHOSPHORUS LEVEL AM 10/20/2021 6:10 Results for this AM CDT procedure are i n the results section. MAGNESIUM LEVEL AM 10/20/2021 6:10 Results f or this AM CDT procedure are i n the results section. COMPREHENSIVE METABOLIC AM 10/20/2021 6:10 PANEL AM CDT COMPLETE BLOOD COUNT W/ AM 10/20/2021 6:10 DIFFERENTIAL AM CDT OSCILLATORY PEP Routine 10/19/2021 8:00 PM CDT OSCILLATORY PEP Routine 10/19/2021 2:00 PM CDT PATHOLOGY BIOPSY Routine 10/19/2021 1:35 Swallowing Results for this INTERPRETATION PM CDT painful procedure are in the results section. UPPER GASTROINTESTINAL 10/19/2021 1:14 Swallowing ENDOSCOPY OF ESOPHAGUS, PM CDT painful STOMACH, AND DUODENUM WITH BIOPSY OSCILLATORY PEP Routine 10/19/2021 9:01 AM CDT OSCILLATORY PEP Routine 10/19/2021 9:01 AM CDT FRACTIONATED BILIRUBIN AM 10/19/2021 7:18 Re sults for this AM CDT procedure are i n the results section. TOTAL PROTEIN AM 10/19/2021 7:18 Results for this AM CDT procedure are i n the results section. ASPARTATE AM 10/19/2021 7:18 Results for this AMINOTRANSFERASE AM CDT procedure a re in the results section. ALANINE AMINOTRANSFERASE AM 10/19/2021 7:18 Results for this AM CDT procedure are i n the results section. ALKALINE PHOSPHATASE AM 10/19/2021 7:18 Resu lts for this AM CDT procedure are i n the results section. ALBUMIN LEVEL AM 10/19/2021 7:18 Results for this AM CDT procedure are i n the results section. CALCIUM LEVEL TOTAL AM 10/19/2021 7:18 Resul ts for this AM CDT procedure are i n the results section. .GLOMERULAR FILTRATION AM 10/19/2021 7:18 Re sults for this RATE AM CDT procedure are i n the results section. SERUM CREATININE AM 10/19/2021 7:18 Results for this AM CDT procedure are i n the results section. ELECTROLYTE PANEL AM 10/19/2021 7:18 Results for this AM CDT procedure are i n the results section. BLOOD UREA NITROGEN AM 10/19/2021 7:18 Resul ts for this AM CDT procedure are i n the results section. GLUCOSE LEVEL AM 10/19/2021 7:18 Results for this AM CDT procedure are i n the results section. MANUAL DIFFERENTIAL AM 10/19/2021 7:18 Resul ts for this AM CDT procedure are i n the results section. Results CBC AM 10/19/2021 7:18 Results for this AM CDT procedure are i n the results section. PHOSPHORUS LEVEL AM 10/19/2021 7:18 Results for this AM CDT procedure are i n the results section. MAGNESIUM LEVEL AM 10/19/2021 7:18 Results f or this AM CDT procedure are i n the results section. COMPREHENSIVE METABOLIC AM 10/19/2021 7:18 PANEL AM CDT COMPLETE BLOOD COUNT W/ AM 10/19/2021 7:18 DIFFERENTIAL AM CDT XR CHEST 1 VW Routine 10/18/2021 4:15 Results for this PM CDT procedure are i n the results section. POC GLUCOSE SCREEN Routine 10/18/2021 6:47 Result s for this AM CDT procedure are i n the results section. FRACTIONATED BILIRUBIN AM 10/18/2021 4:25 R esults for this AM CDT procedure are i n the results section. TOTAL PROTEIN AM 10/18/2021 4:25 Results for this AM CDT procedure are i n the results section. ASPARTATE AM 10/18/2021 4:25 Results for this AMINOTRANSFERASE AM CDT procedure a re in the results section. ALANINE AMINOTRANSFERASE AM 10/18/2021 4:25 Results for this AM CDT procedure are i n the results section. ALKALINE PHOSPHATASE AM 10/18/2021 4:25 Resu lts for this AM CDT procedure are i n the results section. ALBUMIN LEVEL AM 10/18/2021 4:25 Results for this AM CDT procedure are i n the results section. CALCIUM LEVEL TOTAL AM 10/18/2021 4:25 Resul ts for this AM CDT procedure are i n the results section. .GLOMERULAR FILTRATION AM 10/18/2021 4:25 Re sults for this RATE AM CDT procedure are i n the results section. SERUM CREATININE AM 10/18/2021 4:25 Results for this AM CDT procedure are i n the results section. ELECTROLYTE PANEL AM 10/18/2021 4:25 Results for this AM CDT procedure are i n the results section. BLOOD UREA NITROGEN AM 10/18/2021 4:25 Resul ts for this AM CDT procedure are i n the results section. GLUCOSE LEVEL AM 10/18/2021 4:25 Results for this AM CDT procedure are i n the results section. MANUAL DIFFERENTIAL AM 10/18/2021 4:25 Resul ts for this AM CDT procedure are i n the results section. Results CBC AM 10/18/2021 4:25 Results for this AM CDT procedure are i n the results section. PHOSPHORUS LEVEL AM 10/18/2021 4:25 Results for this AM CDT procedure are i n the results section. MAGNESIUM LEVEL AM 10/18/2021 4:25 Results f or this AM CDT procedure are i n the results section. COMPREHENSIVE METABOLIC AM 10/18/2021 4:25 PANEL AM CDT COMPLETE BLOOD COUNT W/ AM 10/18/2021 4:25 DIFFERENTIAL AM CDT OSCILLATORY PEP Routine 10/18/2021 2:00 AM CDT OSCILLATORY PEP Routine 10/17/2021 8:00 PM CDT OSCILLATORY PEP Routine 10/17/2021 2:01 PM CDT VANCOMYCIN LEVEL TROUGH Timed Study 10/17/2021 11:50 Results for this AM CDT procedure are i n the results section. OSCILLATORY PEP Routine 10/17/2021 9:31 AM CDT OSCILLATORY PEP Routine 10/17/2021 9:31 AM CDT OSCILLATORY PEP Routine 10/17/2021 9:31 AM CDT OSCILLATORY PEP Routine 10/17/2021 9:31 AM CDT OSCILLATORY PEP Routine 10/17/2021 9:31 AM CDT PROCALCITONIN AM 10/17/2021 3:59 Results for this AM CDT procedure are i n the results section. FRACTIONATED BILIRUBIN AM 10/17/2021 3:59 Re sults for this AM CDT procedure are i n the results section. TOTAL PROTEIN AM 10/17/2021 3:59 Results for this AM CDT procedure are i n the results section. ASPARTATE AM 10/17/2021 3:59 Results for this AMINOTRANSFERASE AM CDT procedure a re in the results section. ALANINE AMINOTRANSFERASE AM 10/17/2021 3:59 Results for this AM CDT procedure are i n the results section. ALKALINE PHOSPHATASE AM 10/17/2021 3:59 Resu lts for this AM CDT procedure are i n the results section. ALBUMIN LEVEL AM 10/17/2021 3:59 Results for this AM CDT procedure are i n the results section. CALCIUM LEVEL TOTAL AM 10/17/2021 3:59 Resul ts for this AM CDT procedure are i n the results section. .GLOMERULAR FILTRATION AM 10/17/2021 3:59 Re sults for this RATE AM CDT procedure are i n the results section. SERUM CREATININE AM 10/17/2021 3:59 Results for this AM CDT procedure are i n the results section. ELECTROLYTE PANEL AM 10/17/2021 3:59 Results for this AM CDT procedure are i n the results section. BLOOD UREA NITROGEN AM 10/17/2021 3:59 Resul ts for this AM CDT procedure are i n the results section. GLUCOSE LEVEL AM 10/17/2021 3:59 Results for this AM CDT procedure are i n the results section. MANUAL DIFFERENTIAL AM 10/17/2021 3:59 Resul ts for this AM CDT procedure are i n the results section. Results CBC AM 10/17/2021 3:59 Results for this AM CDT procedure are i n the results section. PHOSPHORUS LEVEL AM 10/17/2021 3:59 Results for this AM CDT procedure are i n the results section. MAGNESIUM LEVEL AM 10/17/2021 3:59 Results f or this AM CDT procedure are i n the results section. COMPREHENSIVE METABOLIC AM 10/17/2021 3:59 PANEL AM CDT COMPLETE BLOOD COUNT W/ AM 10/17/2021 3:59 DIFFERENTIAL AM CDT FUNGITELL, SERUM Now 10/17/2021 3:59 Results for this AM CDT procedure are i n the results section. FL MODIFIED BARIUM Routine 10/16/2021 2:57 Result s for this SWALLOW W SPEECH PM CDT procedure a re in the results section. RESPIRATORY PCR PANEL Now 10/16/2021 8:05 Res ults for this PATH REVIEW AM CDT procedure are i n the results section. RESPIRATORY PCR PANEL, Now 10/16/2021 8:05 Re sults for this GLOBAL ACCOUNT DIRECTOR SWAB AM CDT procedure are i n the results section. RESPIRATORY VIRAL PANEL, Now 10/16/2021 8:05 NASOPHARYNGEAL SWAB AM CDT MRSA SCREENING CULTURE Now 10/15/2021 4:25 Re sults for this PM CDT procedure are i n the results section. TROPONIN T Routine 10/15/2021 1:15 Results for this PM CDT procedure are i n the results section. CT CHEST PULMONARY Routine 10/15/2021 12:58 Resul ts for this EMBOLISM W CONTRAST PM CDT procedur e are in the results section. LEGIONELLA URINE ANTIGEN Routine 10/15/2021 12:17 Results for this PATH REVIEW PM CDT procedure are i n the results section. STREPTOCOCCAL URINE Routine 10/15/2021 12:17 Resu lts for this ANTIGEN PATH REVIEW PM CDT procedur e are in the results section. STREPTOCOCCUS PNEUMONIAE Now 10/15/2021 12:17 Results for this URINE ANTIGEN PM CDT procedure are in the results section. LEGIONELLA URINE ANTIGEN Now 10/15/2021 12:17 Results for this PM CDT procedure are i n the results section. FUNGITELL, SERUM Now 10/15/2021 11:43 Results for this AM CDT procedure are i n the results section. MANUAL DIFFERENTIAL STAT 10/15/2021 10:08 Resu lts for this AM CDT procedure are i n the results section. Results CBC STAT 10/15/2021 10:08 Results for this AM CDT procedure are i n the results section. FRACTIONATED BILIRUBIN Now 10/15/2021 10:08 R esults for this AM CDT procedure are i n the results section. TOTAL PROTEIN Now 10/15/2021 10:08 Results fo r this AM CDT procedure are i n the results section. ASPARTATE Now 10/15/2021 10:08 Results for this AMINOTRANSFERASE AM CDT procedure a re in the results section. ALANINE AMINOTRANSFERASE Now 10/15/2021 10:08 Results for this AM CDT procedure are i n the results section. ALKALINE PHOSPHATASE Now 10/15/2021 10:08 Res ults for this AM CDT procedure are i n the results section. ALBUMIN LEVEL Now 10/15/2021 10:08 Results fo r this AM CDT procedure are i n the results section. CALCIUM LEVEL TOTAL Now 10/15/2021 10:08 Resu lts for this AM CDT procedure are i n the results section. .GLOMERULAR FILTRATION Now 10/15/2021 10:08 R esults for this RATE AM CDT procedure are i n the results section. SERUM CREATININE Now 10/15/2021 10:08 Results for this AM CDT procedure are i n the results section. ELECTROLYTE PANEL Now 10/15/2021 10:08 Result s for this AM CDT procedure are i n the results section. BLOOD UREA NITROGEN Now 10/15/2021 10:08 Resu lts for this AM CDT procedure are i n the results section. GLUCOSE LEVEL Now 10/15/2021 10:08 Results fo r this AM CDT procedure are i n the results section. APTT Now 10/15/2021 10:08 Results for this AM CDT procedure are i n the results section. PROTHROMBIN TIME Now 10/15/2021 10:08 Results for this AM CDT procedure are i n the results section. COMPLETE BLOOD COUNT W/ Now 10/15/2021 10:08 DIFFERENTIAL AM CDT NT PRO BNP Now 10/15/2021 10:08 Results for this AM CDT procedure are i n the results section. CKMB Now 10/15/2021 10:08 Results for this AM CDT procedure are i n the results section. CREATINE KINASE Now 10/15/2021 10:08 Results for this AM CDT procedure are i n the results section. TROPONIN T Now 10/15/2021 10:08 Results for this AM CDT procedure are i n the results section. PROCALCITONIN Now 10/15/2021 10:08 Results fo r this AM CDT procedure are i n the results section. LACTATE DEHYDROGENASE Now 10/15/2021 10:08 Re sults for this AM CDT procedure are i n the results section. PHOSPHORUS LEVEL Now 10/15/2021 10:08 Results for this AM CDT procedure are i n the results section. MAGNESIUM LEVEL Now 10/15/2021 10:08 Results for this AM CDT procedure are i n the results section. COMPREHENSIVE METABOLIC Now 10/15/2021 10:08 PANEL AM CDT LOWER RESPIRATORY Now 10/15/2021 10:08 Result s for this CULTURE W/ GRAM STAIN AM CDT proced ure are in the results section. BLOODCULTURE Now 10/15/2021 10:08 Results for this AM CDT procedure are i n the results section. COVID-19 (SARS-COV-2) Now 10/15/2021 10:08 Re sults for this ASYMPTOMATIC-LT AM CDT procedure ar e in the results section. XR CHEST 1 VW Routine 10/15/2021 9:45 Results for this AM CDT procedure are i n the results section. EKG, 12-LEAD (PORTABLE) Routine 10/15/2021 EKG, 12-LEAD (PORTABLE) STAT 10/15/2021 FRACTIONATED BILIRUBIN AM 09/05/2021 5:48 Re sults for this AM GROVE SUPERINTENDENT procedure are i n the results section. TOTAL PROTEIN AM 09/05/2021 5:48 Results for this AM GROVE SUPERINTENDENT procedure are i n the results section. ASPARTATE AM 09/05/2021 5:48 Results for this AMINOTRANSFERASE AM GROVE SUPERINTENDENT procedure a re in the results section. ALANINE AMINOTRANSFERASE AM 09/05/2021 5:48 Results for this AM GROVE SUPERINTENDENT procedure are i n the results section. ALKALINE PHOSPHATASE AM 09/05/2021 5:48 Resu lts for this AM GROVE SUPERINTENDENT procedure are i n the results section. ALBUMIN LEVEL AM 09/05/2021 5:48 Results for this AM GROVE SUPERINTENDENT procedure are i n the results section. CALCIUM LEVEL TOTAL AM 09/05/2021 5:48 Resul ts for this AM GROVE SUPERINTENDENT procedure are i n the results section. .GLOMERULAR FILTRATION AM 09/05/2021 5:48 Re sults for this RATE AM GROVE SUPERINTENDENT procedure are i n the results section. SERUM CREATININE AM 09/05/2021 5:48 Results for this AM GROVE SUPERINTENDENT procedure are i n the results section. ELECTROLYTE PANEL AM 09/05/2021 5:48 Results for this AM GROVE SUPERINTENDENT procedure are i n the results section. BLOOD UREA NITROGEN AM 09/05/2021 5:48 Resul ts for this AM GROVE SUPERINTENDENT procedure are i n the results section. GLUCOSE LEVEL AM 09/05/2021 5:48 Results for this AM GROVE SUPERINTENDENT procedure are i n the results section. MANUAL DIFFERENTIAL AM 09/05/2021 5:48 Resul ts for this AM GROVE SUPERINTENDENT procedure are i n the results section. Results CBC AM 09/05/2021 5:48 Results for this AM GROVE SUPERINTENDENT procedure are i n the results section. PHOSPHORUS LEVEL AM 09/05/2021 5:48 Results for this AM GROVE SUPERINTENDENT procedure are i n the results section. MAGNESIUM LEVEL AM 09/05/2021 5:48 Results f or this AM GROVE SUPERINTENDENT procedure are i n the results section. COMPREHENSIVE METABOLIC AM 09/05/2021 5:48 PANEL AM GROVE SUPERINTENDENT COMPLETE BLOOD COUNT W/ AM 09/05/2021 5:48 DIFFERENTIAL AM GROVE SUPERINTENDENT STREPTOCOCCAL URINE Routine 09/04/2021 1:38 Resul ts for this ANTIGEN PATH REVIEW PM GROVE SUPERINTENDENT procedur e are in the results section. LEGIONELLA URINE ANTIGEN Routine 09/04/2021 1:38 Results for this PATH REVIEW PM GROVE SUPERINTENDENT procedure are i n the results section. LEGIONELLA URINE ANTIGEN Now 09/04/2021 1:38 Results for this PM GROVE SUPERINTENDENT procedure are i n the results section. STREPTOCOCCUS PNEUMONIAE Now 09/04/2021 1:38 Results for this URINE ANTIGEN PM GROVE SUPERINTENDENT procedure are in the results section. LOWER RESPIRATORY Now 09/04/2021 1:36 Results for this CULTURE W/ GRAM STAIN PM GROVE SUPERINTENDENT proced ure are in the results section. CALCIUM LEVEL TOTAL AM 09/04/2021 3:51 Resul ts for this AM GROVE SUPERINTENDENT procedure are i n the results section. .GLOMERULAR FILTRATION AM 09/04/2021 3:51 Re sults for this RATE AM GROVE SUPERINTENDENT procedure are i n the results section. SERUM CREATININE AM 09/04/2021 3:51 Results for this AM GROVE SUPERINTENDENT procedure are i n the results section. ELECTROLYTE PANEL AM 09/04/2021 3:51 Results for this AM GROVE SUPERINTENDENT procedure are i n the results section. BLOOD UREA NITROGEN AM 09/04/2021 3:51 Resul ts for this AM GROVE SUPERINTENDENT procedure are i n the results section. GLUCOSE LEVEL AM 09/04/2021 3:51 Results for this AM GROVE SUPERINTENDENT procedure are i n the results section. TROPONIN T Routine 09/04/2021 3:51 Results for this AM GROVE SUPERINTENDENT procedure are i n the results section. PHOSPHORUS LEVEL AM 09/04/2021 3:51 Results for this AM GROVE SUPERINTENDENT procedure are i n the results section. MAGNESIUM LEVEL AM 09/04/2021 3:51 Results f or this AM GROVE SUPERINTENDENT procedure are i n the results section. BASIC METABOLIC PANEL, AM 09/04/2021 3:51 CALCIUM TOTAL AM GROVE SUPERINTENDENT CKMB Now 09/03/2021 9:49 Results for this PM GROVE SUPERINTENDENT procedure are i n the results section. CREATINE KINASE Now 09/03/2021 9:49 Results f or this PM GROVE SUPERINTENDENT procedure are i n the results section. TROPONIN T Now 09/03/2021 9:49 Results for this PM GROVE SUPERINTENDENT procedure are i n the results section. CT CHEST PULMONARY Routine 09/03/2021 9:46 Result s for this EMBOLISM W CONTRAST PM GROVE SUPERINTENDENT procedur e are in the results section. XR CHEST 1 VW Routine 09/03/2021 5:40 Results for this PM GROVE SUPERINTENDENT procedure are i n the results section. RESPIRATORY VIRAL PANEL Now 09/03/2021 5:14 R esults for this + COVID-19, PM GROVE SUPERINTENDENT procedure are i n NASOPHARYNGEAL SWAB the resu lts section. FRACTIONATED BILIRUBIN Now 09/03/2021 3:54 Re sults for this PM GROVE SUPERINTENDENT procedure are i n the results section. TOTAL PROTEIN Now 09/03/2021 3:54 Results for this PM GROVE SUPERINTENDENT procedure are i n the results section. ASPARTATE Now 09/03/2021 3:54 Results for this AMINOTRANSFERASE PM GROVE SUPERINTENDENT procedure a re in the results section. ALANINE AMINOTRANSFERASE Now 09/03/2021 3:54 Results for this PM GROVE SUPERINTENDENT procedure are i n the results section. ALKALINE PHOSPHATASE Now 09/03/2021 3:54 Resu lts for this PM GROVE SUPERINTENDENT procedure are i n the results section. ALBUMIN LEVEL Now 09/03/2021 3:54 Results for this PM GROVE SUPERINTENDENT procedure are i n the results section. CALCIUM LEVEL TOTAL Now 09/03/2021 3:54 Resul ts for this PM GROVE SUPERINTENDENT procedure are i n the results section. .GLOMERULAR FILTRATION Now 09/03/2021 3:54 Re sults for this RATE PM GROVE SUPERINTENDENT procedure are i n the results section. SERUM CREATININE Now 09/03/2021 3:54 Results for this PM GROVE SUPERINTENDENT procedure are i n the results section. ELECTROLYTE PANEL Now 09/03/2021 3:54 Results for this PM GROVE SUPERINTENDENT procedure are i n the results section. BLOOD UREA NITROGEN Now 09/03/2021 3:54 Resul ts for this PM GROVE SUPERINTENDENT procedure are i n the results section. GLUCOSE LEVEL Now 09/03/2021 3:54 Results for this PM GROVE SUPERINTENDENT procedure are i n the results section. MANUAL DIFFERENTIAL STAT 09/03/2021 3:54 Resul ts for this PM GROVE SUPERINTENDENT procedure are i n the results section. Results CBC STAT 09/03/2021 3:54 Results for this PM GROVE SUPERINTENDENT procedure are i n the results section. TROPONIN T Now 09/03/2021 3:54 Results for this PM GROVE SUPERINTENDENT procedure are i n the results section. NT PRO BNP Now 09/03/2021 3:54 Results for this PM GROVE SUPERINTENDENT procedure are i n the results section. PHOSPHORUS LEVEL Now 09/03/2021 3:54 Results for this PM GROVE SUPERINTENDENT procedure are i n the results section. MAGNESIUM LEVEL Now 09/03/2021 3:54 Results f or this PM GROVE SUPERINTENDENT procedure are i n the results section. COMPREHENSIVE METABOLIC Now 09/03/2021 3:54 PANEL PM GROVE SUPERINTENDENT COMPLETE BLOOD COUNT W/ Now 09/03/2021 3:54 DIFFERENTIAL PM GROVE SUPERINTENDENT EKG, 12-LEAD (PORTABLE) STAT 09/03/2021 CT CHEST W CONTRAST Routine 08/13/2021 8:15 Non-small cell Res ults for this AM GROVE SUPERINTENDENT lung cancer procedure are i n <Unspecified the results side> section. POC CREATININE Routine 08/13/2021 7:30 Results fo r this AM GROVE SUPERINTENDENT procedure are i n the results section. 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 POC CREATININE Routine 04/20/2021 1:02 PM Results for this CDT procedure are i n the results section. MRI BRAIN W WO Routine 04/20/2021 11:10 AM Small cell Result s for this CONTRAST CDT carcinoma, NOS of procedure are in upper lobe, lung the results <Right> section. after 03/07/2021 Results .Serum Creatinine (10/24/2021 5:53 AM CDT)Only the most recent of12 results within the time period is included. athologist Signature Creatinine 0.81 0.67 - 1.17 [facility] mg/dL [facility] CENTER Specimen Anatomical Collection Method Collection Time Receive d Time (Source) Location / / Volume Laterality Blood 10/24/2021 5:53 AM 6:21 CDT AM CDT Ronnie Tolentino MD LAB BLOOD ORDERABLES Performing Organization Address City/State/ZIP Code Phon e Number [facility] CANCER Unless otherwise noted, [place] [address] [place] all lab tests performed by: Division of Pathology and Laboratory Medicine [address] (ABNORMAL) .CBC (10/24/2021 5:53 AM CDT)Only the most recent of11 resultswithin the time period is included. athologist Signature WBC 11.5 (H) 4.0 - 11.0 [place] K/[facility] RBC 4.25 (L) 4.50 - [place] 6.00 M/[facility] Hgb 12.1 (L) 14.0 - [place] MD 18.0 gm/dL [facility] Hct 38.9 (L) 40.0 - [place] MD 54.0 % [facility] MCV 92 82 - 98 fL [facility] MCH 28.5 27.0 - [place] MD 31.0 pg [facility] MCHC 31.1 31.0 - [place] MD 36.0 gm/dL [facility] RDW-SD 57.5 (H) 35.1 - [place] MD 46.3 fL [facility] RDW-CV 17.4 (H) 12.0 - [place] MD 15.5 % [facility] Platelet count 313 140 - 440 [facility] K/uL [facility] MPV 8.8 4.0 - 10.4 [facility] INRBC 0.2 (H) <=0.0 % [facility] Comment: The INRBC (instrument NRBC) value reflec ts the enumeration of nucleated red blood cells contained i n a 200uL sample of whole blood analyzed by the instrumen t. This value may differ from the NRBC value reported in a manual differential, which is based on a 100 cell differentia l. Specimen Anatomical Collection Method Collection Time Receive d Time (Source) Location / / Volume Laterality Blood 10/24/2021 5:53 AM 6:16 CDT AM CDT Ronnie Tolentino MD LAB BLOOD ORDERABLES Performing Organization Address City/State/ZIP Code Phon e Number [facility] CANCER Unless otherwise noted, [place] [address] [place] all lab tests performed by: Division of Pathology and Laboratory Medicine [address] [place] [address] Glomerular Filtration Rate (10/24/2021 5:53 AM CDT)Only the most recent of12 resultswithin the time period is included. athologist Signature eGFR-AA 107 >=60 [facility] mL/min/1.73 [facility] sq. m Comment: Normal eGFR: >= 60 mL/min/1.73 m2 Note: The eGFR is calculated using the C KD-EPI equation. The eGFR declines with age. eGFR <60 mL/min/1.73 m2 is considered as "decreased". This equation should only be used for patients 18 and older. According to the National [employer] ion's Kidney Disease Outcome Quality Initiative (KDOQI) classification and 2012 Kidney Disease Improving Global Outcomes (KDIGO) Clinical Practice Guideline, the stage of CKD should be categorized based on estimated GFR. Stage Description GFR mL/min/1. 73 m2 1 Normal or high GFR >=90 2 Mildly decreased GFR 60-89 3a Mildly to moderately decreased GFR 45-59 3b Moderately to severely decreased GFR 30-44 4 Severely decreased GFR 15-29 5 Kidney failure <15 eGFR-JCARLOS 93 >=60 mL/min/1.73 sq. m [place] MD Ramírez [facility] Comment: Normal eGFR: >= 60 mL/min/1.73 m2 Note: The eGFR is calculated using the C KD-EPI equation. The eGFR declines with age. eGFR <60 mL/min/1.73 m2 is considered as "decreased". This equation should only be used for patients 18 and older. According to the National [employer] ion's Kidney Disease Outcome Quality Initiative (KDOQI) classification and 2012 Kidney Disease Improving Global Outcomes (KDIGO) Clinical Practice Guideline, the stage of CKD should be categorized based on estimated GFR. Stage Description GFR mL/min/1. 73 m2 1 Normal or high GFR >=90 2 Mildly decreased GFR 60-89 3a Mildly to moderately decreased GFR 45-59 3b Moderately to severely decreased GFR 30-44 4 Severely decreased GFR 15-29 5 Kidney failure <15 Specimen Anatomical Collection Method Collection Time Receive d Time (Source) Location / / Volume Laterality Blood 10/24/2021 5:53 AM 2 6:21 CDT AM CDT Ronnie Tolentino MD LAB BLOOD ORDERABLES Performing Organization Address City/State/ZIP Code Phon e Number [facility] CANCER Unless otherwise noted, [place], [place] [id number] [place] [address] all lab tests performed by: Division of Pathology and Laboratory Medicine [facility]5 [facility] Fractionated Bilirubin (10/24/2021 5:53 AM CDT)Only the most recent of11 results within the time period is included. athologist Signature Bili Total <0.3 <=1.2 mg/dL [facility] Comment: Direct and indirect bilirubin will not b e reported when Total bilirubin result is <0.3 mg/dL Indocyanine Green (ICG) may cause falsel y elevated bilirubin results. Total and direct bilirubin must not be measured from samples containing indocyanine green. False elevation of total bilirubin can b e seen in patients with IgG concentrations above 28 g/L. Specimen Anatomical Collection Method Collection Time Receive d Time (Source) Location / / Volume Laterality Blood 10/24/2021 5:53 AM 6:21 CDT AM CDT Ronnie Fu Randa CARDENAS LAB BLOOD ORDERABLES Performing Organization Address City/State/ZIP Code Phon e Number [facility] CANCER Unless otherwise noted, [place] [address] [place] all lab tests performed by: Division of Pathology and Laboratory Medicine [address] [facility] (ABNORMAL) Differential (10/24/2021 5:53 AM CDT)Only the most recent of11 resultswithin the time period is included. athologist Signature Total Cells 100 [facility] Neutrophil % 63.0 42.0 - 66.0 [facility] Comment: The Neutrophil count includes B ands. Lymphocyte % 20.0 (L) 24.0 - 44.0 % IA MD [facility] Monocyte % 9.0 (H) 2.0 - 7.0 % [facility] Eosinophil % 2.0 1.0 - 4.0 % [facility] Metamyelocyte % 6.0 (H) <=0.0 % [facility] Comment: The Metamyelocyte count include s Myelocytes. NRBC 1.0 (H) <=0.0 IA MD [place] Neutrophil Abs 7.25 1.70 - 7.30 K/uL IA MD MANOHAR PLASENCIA [facility] Lymphocyte Abs 2.30 1.00 - 4.80 K/uL IA MD REAL [facility] Monocyte Abs 1.04 (H) 0.08 - 0.70 K/uL IA MD BEAL ALONDRA [facility] Eosinophil Abs 0.23 0.04 - 0.40 K/uL IA MD MANOHAR PLASENCIA [facility] RBC Morph Present (A) Normal [place] MD [place] [facility] [place] [facility]T Morph Normal Normal [place] MD P[facility]Y [facility] Anisocytosis Present (A) Not Present IA MD ANNIKA Zimmerman [facility] Poik Present (A) Not Present [place] MD [place] Trev[facility] Polychromasia Present (A) Not Present IA MD [facility] Ovalocyte Present (A) Not Present IA [facility] Tear Drop Present (A) Not Present IA [facility] Specimen Anatomical Collection Method Collection Time Receive d Time (Source) Location / / Volume Laterality Blood 10/24/2021 5:53 AM 2 6:16 CDT AM CDT Ronnie Tolentino MD LAB BLOOD ORDERABLES Performing Organization Address City/State/ZIP Code Phon e Number [facility] CANCER Unless otherwise noted, [address] all lab tests performed by: Division of Pathology and Laboratory Medicine [address] [place] BUN (10/24/2021 5:53 AM CDT)Only the most recent of12 resultswithin the time period is included. athologist Signature BUN 15 6 - 23 [facility] mg/dL [facility] Specimen Anatomical Collection Method Collection Time Receive d Time (Source) Location / / Volume Laterality Blood 10/24/2021 5:53 AM 2 6:21 CDT AM CDT Ronnie Tolentino MD LAB BLOOD ORDERABLES Performing Organization Address City/[facility]/ZIP Code Phon e Number [facility] CANCER Unless otherwise noted, [address] all lab tests performed by: Division of Pathology and Laboratory Medicine [address] [place] ALT (10/24/2021 5:53 AM CDT)Only the most recent of11 resultswithin the time period is included. athologist Signature ALT 14 <=41 U/L [facility] Specimen Anatomical Collection Method Collection Time Receive d Time (Source) Location / / Volume Laterality Blood 10/24/2021 5:53 AM 2 CDT 6:21 AM CDT Ronnie Tolentino MD LAB BLOOD ORDERABLES Performing Organization Address City/[facility]/ZIP Code Phon e Number [facility] CANCER Unless otherwise noted, [address] all lab tests performed by: Division of Pathology and Laboratory Medicine [address] [place] Aspartate Aminotransferase (10/24/2021 5:53 AM CDT)Only the most recent of11 resultswithin the time period is included. P athologist Signature AST 14 <=40 U/L [facility] Specimen Anatomical Collection Method Collection Time Receive d Time (Source) Location / / Volume Laterality Blood 10/24/2021 5:53 AM 2 6:21 CDT AM CDT Ronnie Tolentino MD LAB BLOOD ORDERABLES Performing Organization Address City/[facility]/ZIP [facility] Phon e Number [facility] CANCER Unless otherwise noted, [address] all lab tests performed by: Division of Pathology and Laboratory Medicine [address] [place] (ABNORMAL) Total Protein (10/24/2021 5:53 AM CDT)Only the most recent of11 resultswithin the time period is included. P athologist Signature Total Protein 6.3 (L) 6.4 - 8.3 [facility] g/dL [facility] Specimen Anatomical Collection Method Collection Time Receive d Time (Source) Location / / Volume Laterality Blood 10/24/2021 5:53 AM 2 6:21 CDT AM CDT Ronnie Tolentino MD LAB BLOOD ORDERABLES Performing Organization Address City/[facility] Phon e Number [facility] CANCER Unless otherwise noted, [address] all lab tests performed by: Division of Pathology and Laboratory Medicine [address] [place] Phosphorus Level (10/24/2021 5:53 AM CDT)Only the most recent of12 resultswithin the time period is included. athologist Signature Phosphorus 3.4 2.5 - 4.5 [facility] mg/dL [facility] Specimen Anatomical Collection Method Collection Time Receive d Time (Source) Location / / Volume Laterality Blood 10/24/2021 5:53 AM 2 6:21 CDT AM CDT Ronnie Tolentino MD LAB BLOOD ORDERABLES Performing Organization Address City/[facility] Phon e Number [facility] CANCER Unless otherwise noted, [address] all lab tests performed by: Division of Pathology and Laboratory Medicine [address] [place] Alkaline Phosphatase (10/24/2021 5:53 AM CDT)Only the most recent of11 results within the time period is included. athologist [facility] Alk Phos 59 40 - 129 [facility] U/L [facility] Specimen Anatomical Collection Method Collection Time Receive d Time (Source) Location / / Volume Laterality Blood 10/24/2021 5:53 AM 6:21 CDT AM CDT Ronnie Tolentino MD LAB BLOOD ORDERABLES Performing Organization Address City/[facility]/ZIP Code Phon e Number [facility] CANCER Unless otherwise noted, [address] all lab tests performed by: Division of Pathology and Laboratory Medicine [address] [place] Magnesium Level (10/24/2021 5:53 AM CDT)Only the most recent of12 resultswithin the time period is included. [facility] Magnesium 2.1 1.6 - 2.6 [facility] mg/dL [facility] Specimen Anatomical Collection Method Collection Time Receive d Time (Source) Location / / Volume Laterality Blood 10/24/2021 5:53 10/24/2021 6:21 AM CDT AM CDT Ronnie Tolentino MD LAB BLOOD ORDERABLES Performing Organization Address City/[facility] Phon e Number [facility] Unless otherwise noted, [address] all lab tests performed by: Division of Pathology and Laboratory Medicine [address] [place] (ABNORMAL) Glucose Level (10/24/2021 5:53 AM CDT)Only the most recent of12 resultswithin the time period is included. athologist [facility] Glucose Level 105 (H) 70 - 99 [facility] mg/dL [facility] Comment: Effective 01/24/16, the glucose reference intervals have been updated based on [place] [employer] guidelines (Standards of Medical Care in Diabetes 2016. Diabetes Care 2016; 39: S13-S22). Fasting blood glucose: Normal: 70-99 mg/dL Impaired fasting glucose (increased risk for diabetes or pre-diabetes): 100- 125 mg/dL Diabetes mellitus: >/=126 mg/dL Random blood glucose: Normal: 70-199 mg/dL Note: Random glucose >100 mg/dL is assoc iated with increased risk for diabetes Specimen Anatomical Collection Method Collection Time Receive d Time (Source) Location / / Volume Laterality Blood 10/24/2021 5:53 AM 2 6:21 CDT AM CDT Ronnie Tolentino MD LAB BLOOD ORDERABLES Performing Organization Address City/[facility]/ZIP [facility] Phon e Number [facility] CANCER Unless otherwise noted, [address] all lab tests performed by: Division of Pathology and Laboratory Medicine [address] [place] Calcium Level (10/24/2021 5:53 AM CDT)Only the most recent of12 resultswithin the time period is included. P athologist Signature Calcium Lvl 9.1 8.4 - 10.2 [facility] mg/dL [facility] Specimen Anatomical Collection Method Collection Time Receive d Time (Source) Location / / Volume Laterality Blood 10/24/2021 5:53 AM 2 6:21 CDT AM CDT Ronnie Tolentino MD LAB BLOOD ORDERABLES Performing Organization Address [facility] Phon e Number [facility] CANCER Unless otherwise noted, [address] all lab tests performed by: Division of Pathology and Laboratory Medicine [address] [place] Albumin Level (10/24/2021 5:53 AM CDT)Only the most recent of11 resultswithin the time period is included. P athologist Signature Albumin Lvl 3.6 3.5 - 5.2 [facility] gm/dL [facility] Specimen Anatomical Collection Method Collection Time Receive d Time (Source) Location / / Volume Laterality Blood 10/24/2021 5:53 AM 2 6:21 CDT AM CDT Ronnie Tolentino MD LAB BLOOD ORDERABLES Performing Organization Address City/[facility] Phon e Number [facility] CANCER Unless otherwise noted, [address] all lab tests performed by: Division of Pathology and Laboratory Medicine [address] [place] Electrolyte Panel (10/24/2021 5:53 AM CDT)Only the most recent of12 results within the time period is included. P athologist Signature Sodium Lvl 141 136 - 145 [facility] mEq/L [facility] Potassium Lvl 4.3 3.5 - 5.1 [facility] mEq/L [facility] Chloride 106 98 - 107 [facility] mEq/L [facility] CO2 23 22 - 29 [facility] mEq/L [facility] Anion Gap 12 4 - 14 [facility] mEq/L [facility] Specimen Anatomical Collection Method Collection Time Receive d Time (Source) Location / / Volume Laterality Blood 10/24/2021 5:53 AM 2 6:21 CDT AM CDT Ronnie Tolentino MD LAB BLOOD ORDERABLES Performing Organization Address City/State/ZIP Code Phon e Number [facility] CANCER Unless otherwise noted, [address] all lab tests performed by: Division of Pathology and Laboratory Medicine [facility] [place] (ABNORMAL) IgG Subclasses (10/22/2021 6:48 AM CDT) athologist Signature IgG Total-[place] 830 767 - 1590 [facility] mg/dL [facility] IgG1-[place] 418 341 - 894 [facility] mg/dL [facility] IgG2-[place] 157 (L) 171 - 632 [facility] mg/dL [facility] CENTER IgG3-[place] 56.8 18.4 - [place] MD [place] 106.0 [facility] mg/dL IgG4-[place] 8.8 2.4 - [facility] 121.0 [facility] mg/dL Comment: Test Performed by: [facility] [address] [place] [address] Advanced Developer: Chato Johnson M.D. Ph. D.; CLIA# [id number] Specimen Anatomical Collection Method Collection Time Receive d Time (Source) Location / / Volume Laterality Blood 10/22/2021 6:48 AM 2 7:34 CDT AM CDT Ronnie Tolentino MD LAB BLOOD ORDERABLES Performing Organization Address City/State/ZIP Code Phon e Number [facility] CANCER Unless otherwise noted, [address] all lab tests performed by: Division of Pathology and Laboratory Medicine [facility]5 [facility] [place] IgA (10/22/2021 6:48 AM CDT) athologist Signature IgA 191 85 - 499 [facility] mg/dL [facility] CENTER Specimen Anatomical Collection Method Collection Time Receive d Time (Source) Location / / Volume Laterality Blood 10/22/2021 6:48 AM 2 7:15 CDT AM CDT Ronnie Tolentino MD LAB BLOOD ORDERABLES Performing Organization Address City/State/ZIP Code Phon e Number [facility] CANCER Unless otherwise noted, [address] all lab tests performed by: Division of Pathology and Laboratory Medicine [address] [place] [address] IgG (10/22/2021 6:48 AM CDT) P athologist Signature IgG 751 610 - 1,616 [facility] mg/dL [facility] Specimen Anatomical Collection Method Collection Time Receive d Time (Source) Location / / Volume Laterality Blood 10/22/2021 6:48 AM 2 7:15 CDT AM CDT Ronnie Tolentino MD LAB BLOOD ORDERABLES Performing Organization Address City/[facility] Phon e Number [facility] CANCER Unless otherwise noted, [address] all lab tests performed by: Division of Pathology and Laboratory Medicine [facility]5 [facility] X-ray Chest 1 View (10/21/2021 3:44 PM CDT)Only the most recent of4 results within the time period is included. Anatomical Region Laterality Modality Chest Digital Radiography Specimen (Source) Anatomical Collection Method Collection Time Re ceived Time Location / / Volume Laterality 10/21/2021 4:23 PM CDT Impressions 10/21/2021 4:24 PM CDT Persisting opacities in the right upper lobe laterally may be due to the patient's primary lung cancer and treatment changes similar relative to 10/18/2021. Opacities in left lower lung persist and may be due to atelectasis, aspiration or pneumonia though may be due to scarring. 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 Findings: Persisting opacities in the right upper lobe laterally may be due to the patient's primary lung cancer and treatment changes similar relative to 10/18/2021. Opacities in left lower lung persist and may be due to atelectasis, aspiration or pneumonia though may be due to scarring. No definite pleural effusions. No enlarged hilar mediastinal nodes. The cardiac silhouette is not enlarged. Procedure Note Luis Fernando Alexander MD - 10/21/2021Formatt ing of this note might be different from the original. 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 Findings: Persisting opacities in the right upper lobe laterally may be due to the patient's primary lung cancer and treatment changes similar relative to 10/18/2021. Opacities in left lower lung persist and may be due to atelectasis, aspiration or pneumonia though may be due to scarring. No definite pleural effusions. No enlarged hilar mediastinal nodes. The cardiac silhouette is not enlarged. IMPRESSION: Persisting opacities in the right upper lobe laterally may be due to the patient's primary lung cancer and treatment changes similar relative to 10/18/2021. Opacities in left lower lung persist and may be due to atelectasis, aspiration or pneumonia though may be due to scarring. Ronnie Tolentino MD IMG DIAGNOSTIC IMAGING ORDER [place] Blood Culture (10/21/2021 9:09 AM CDT)Only the most recent of2 resultswithin the time period is included. Component Value Ref Test [facility] Range Method Time Signature Final Report No growth [facility] Path Review - Culture yield may be affecte d by sample quality, prior treatment, and transportation conditions. [place] MD Zavala/Isolarden ... [place]LANDO or The results have been reviewed and electronically signed b y Pathologist: CANCER Fredy Mercado MD, PhD #[id number] C ENTER Specimen Anatomical Collection Method Collection Time Receive d Time (Source) Location / / Volume Laterality Blood 10/21/2021 9:09 AM 2 (Venipuncture-Le CDT 10:21 AM CD T ft) Comment: arm Ronnie Tolentino MD MICROBIOLOGY - GENERAL ORDER [place] Performing Organization Address City/State/ZIP Code Phon e Number [facility] CANCER Unless otherwise noted, [address] all lab tests performed by: Division of Pathology and Laboratory Medicine [address] [place] Fungal Blood Culture (10/21/2021 9:09 AM CDT) Component Value Ref Test Analysis Performed At Patholo gist Range Method Time Signature Final Report No Fungi isolated. [facility] Path Review - Culture yield may be affecte d by sample quality, prior treatment, and transportation conditions. [place] Fungus The results have been reviewed and elect ronically signed by Pathologist: ORLANDO ZABALA MD #[id number] C [facility] Specimen Anatomical Collection Method Collection Time Receive d Time (Source) Location / / Volume Laterality Blood 10/21/2021 9:09 AM 2 (Venipuncture-Le CDT 10:39 AM CD T ft) Comment: arm Ronnie Tolentino MD MICROBIOLOGY - GENERAL ORDER TAW[place]NA Performing Organization Address City/State/ZIP Code Phon e Number [facility] CANCER Unless otherwise noted, [address] all lab tests performed by: Division of Pathology and Laboratory Medicine [facility]5 [facility] EKG, 12-Lead (10/21/2021)Only the most recent of4 resultswithin the time period is included. Specimen (Source) Anatomical Location Collection Method / Collectio n Time Received Time / Laterality Volume Narrative This result has an attachment that is no t available. Ronnie Tolentino MD ECG ORDERABLES Performing Organization Address City/State/ZIP Code Phon e Number [facility] XR Abdomen 1 View Portable (10/20/2021 2:19 PM CDT) Anatomical Region Laterality Modality Abdomen Digital Radiography Specimen (Source) Anatomical Collection Method Collection Time Re ceived Time Location / / Volume Laterality 10/20/2021 3:40 PM CDT Impressions 10/20/2021 3:42 PM CDT 1. No evidence of bowel obstruction. A m oderate amount of retained stool is throughout the colon, consistent with constipation. 2. No intraperitoneal free air. 3. Patchy left lower lung opacities/cons olidation noted. 4. Wires overlie the lower chest and upp er abdomen. 5. Moderate degenerative changes of the osseous structures. 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 Procedure Note Sofya Ulloa MD - 10/20/2021Forma tting of this note might be different from the original. 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 IMPRESSION: 1. No evidence of bowel obstruction. A m oderate amount of retained stool is throughout the colon, consistent with constipation. 2. No intraperitoneal free air. 3. Patchy left lower lung opacities/cons olidation noted. 4. Wires overlie the lower chest and upp er abdomen. 5. Moderate degenerative changes of the osseous structures. Ronnie Tolentino MD IMG DIAGNOSTIC IMAGING ORDER [place] Pathology Biopsy Interpretation (10/19/2021 1:35 PM CDT) Component Value Ref Test Analysis Performed Pathologis t Range Method Time At Signature Submitted Swallowing painful 10/22/2021 [facility] Clinical [R13.19] 10:30 AM History CDT Diagnosis A. Esophagus, biopsy: 10/22/2021 [facility] Electronically Changes morphologically consistent with Tati esophagitis 10:30 AM signed by CDT Manuela real MD on 10/23/19 at 10:30 AM Gross A: 10/22/2021 [facility] Description Esophagus, esophagus r/o can dida and esophagitis: One piedra-brown fragment of soft tissue measuring 0.4 cm, admixed with probable plant material, entirely submitted in A1. GM 10:30 AM CDT Disclaimer "Some tests 10/22/2021 [facility] reported here may 10:30 AM have been CDT developed and performance characteristics determined by [facility] Pathology and Laboratory Medicine. These tests have not been specifically cleared or approved by the U.S. Food and Drug Administration. If applicable, controls were reviewed and showed appropriate reactivity." Specimen Anatomical Collection Method Collection Time Receive d Time (Source) Location / / Volume Laterality Tissue 10/19/2021 1:35 PM 2 4:11 (Esophagus) CDT PM CDT Edwige Leonard MD LAB PATHOLOGY ORDERABLES Performing Organization Address City/State/ZIP Code Phon e Number [facility] [place] [id number] [address] [facility] (ABNORMAL) POC Glucose Screen (10/18/2021 6:47 AM CDT) athologist Signature POC Glucose 196 (H) 70 - 99 POC [facility] mg/dL Comment: RN Notified Capillary blood samples, e.g. obtained b y fingerstick, may have inaccurate results in patients with decreased peripheral blood flow. Method description: All results are jenny ured using Electrochemistry test methodology. The glucose in the sample mixes with the reagents on the test strip. The reaction produces an electric current. The amount of current produced is proportion al to the glucose concentration in the blood. PO Sample Type Capillary POC [facility] Performing Lab [facility] POC TEL[facility] R Comment: [facility], [address] [place] [address], [place] [address]; Lab Direct or: Karma Arciniega MD Specimen Anatomical Collection Method Collection Time Receive d Time (Source) Location / / Volume Laterality Blood 10/18/2021 6:47 AM 2 6:47 CDT AM CDT Ronnie Tolentino MD POCT ORDERABLES - DEVICE Performing Organization Address City/[facility]/ZIP Code Phon e Number POC [facility] Vancomycin Trough Vancomycin trough on 10/17/21@10:30AM. Nurse please coordinate with lab to draw trough approximately 11 - 11.5hours after 10/16/21 evening vanco dose. Hold vancomycin doses if trough isgreater than 20 and notify . Thanks! (10/17/2021 11:50 AM CDT) athologist Signature Vanco Trough 6.0 5.0 - 20.0 [place] MD PERRY mcg/mL [facility] Comment: Toxic Trough Level: >20 mcg/mL Vanco Tr Dose Time See note [place] MD [facility] Comment: Level, date, and time of previous dose i s not available for this sample. The date reported is th e sample collection date. Vanco Tr Dose Date 10/17/2021 [place] MD [facility]AL [facility] Comment: Level, date, and time of previous dose i s not available for this sample. The date reported is e sample collection date. Specimen Anatomical Collection Method Collection Time Receive d Time (Source) Location / / Volume Laterality Blood 10/17/2021 11:50 10/17/2021 AM CDT 12:36 PM CDT Narrative [facility] - 1:05 PM CDT Vancomycin trough on 10/17/21@10:30AM. Nu rse please coordinate with lab to draw trough approximately 11 - 11.5hours after evening vanco dose. Hold vancomycin doses if trough is greater than 20 and notify . Thanks! Ronnie Tolentino MD LAB BLOOD ORDERABLES Performing Organization Address City/State/ZIP Code Phon e Number [facility] CANCER Unless otherwise noted, [place] [address] [place] all lab tests performed by: Division of Pathology and Laboratory Medicine [facility] [place] (ABNORMAL) Fungitell, Serum (10/17/2021 3:59 AM CDT)Only the most recent of2 resultswithin the time period is included. athologist Signature Fungitell S-V 101 (H) <80 pg/mL [facility] Comment: Interpretation: The Fungitell assay does not detect certain fungal species such as the genus Cryptococcus ( Marcelino et al. 1991) which produces very low levels of (1-3)-Beta-D -Glucan. The assay also does not detect the Zygomycetes such as Absid ia, Mucor and Rhizopus (Henrry et al. 1994) which are not know n to produce (1-3)-Bbjj-B-Dwnell. In addition, the ye ast phase of Blastomyces dermatitidis produces little (1-3)-Beta- D-Glucan and may not be detected by the assay (Senthil et al. 2 007). Reference Range: Less than 60 pg/mL. Glucan values of les s than 60 pg/mL are interpreted as negative. Glucan values of 60 to 79 pg/mL are inte rpreted as indeterminate, and suggest a possible fungal infection. Additional sampling and testing of sera is required to interpret the results. Glucan values of greater than or equal t o 80 pg/mL are interpreted as positive. Due to the potential for environmental c ontamination when transferred to pour-off tubes, which can lead to false positive results, interpret positive results from samples provided in pour-off tubes with caution. Results s hould be used in conjunction with clinical findings, and should not f orm the sole basis for a diagnosis or treatment decision. The Fun gitell test is approved or cleared for in vitro diagnostic use by yevgeniy bueno [place] Food and Drug Administration. Modifications to the keerthi roved package insert have been made and the performance characteri stics for these modifications were determined by [employer]. If sample result is greater than 500 pg/ mL, physician may order a titer of the sample. Please contact [employer] if you would like to order a retest of this sample to obtain an actual value. Samples are held for 1 week after initia l testing date. Performed At: [facility] [id number] [place] [address] Desktop Analyst: Andi Taylor Ph.D., B CLD (ABB) CLIA#: [id number] Phone: Specimen Anatomical Collection Method Collection Time Receive d Time (Source) Location / / Volume Laterality Blood 10/17/2021 3:59 AM 2 CDT 10:49 AM CDT Ronnie Tolentino MD MICROBIOLOGY - GENERAL ORDER [place] Performing Organization Address City/State/ZIP Code Phon e Number [facility] CANCER Unless otherwise noted, [place] [address] [place] all lab tests performed by: Division of Pathology and Laboratory Medicine [facility] [address] Procalcitonin (10/17/2021 3:59 AM CDT)Only the most recent of2 resultswithin the time period is included. athologist Signature Procalcitonin <0.[address]08 [facility] ng/mL [facility] Comment: Procalcitonin > 2.00 ng/mL: Procalcit onin levels above 2.00 ng/mL are highly suggestive of a high risk for systematic bacterial infection/ severe sepsis and/or septic shock. Procalcitonin < 0.50 ng/mL: Procalcito diony levels below 0.50 ng/mL are at low risk for progression to severe sepsis and/ or septic shock. Procalcitonin (ProCT) between 0.15 and 2 .0 ng/mL do not exclude infection, because localized infections (without systemic signs) may be associated with such low levels. Results greater than 400 ng/mL may not b e reliable due to the matrix effect with extended dilution as it exceeds the jig and fixture builder's recommended limit. Caution should be exercised when interpreting such values and done in conjunction with clinical context. Specimen Anatomical Collection Method Collection Time Receive d Time (Source) Location / / Volume Laterality Blood 10/17/2021 3:59 AM 5:36 CDT AM CDT Ronnie Tolentino MD LAB BLOOD ORDERABLES Performing Organization Address City/State/ZIP Code Phon e Number [facility] CANCER Unless otherwise noted, [place] [address] CENTER all lab tests performed by: Division of Pathology and Laboratory Medicine [facility]5 [facility] FL Modified Barium Swallow w Speech (10/16/2021 2:57 PM CDT) Anatomical Region Laterality Modality Neck Radio Fluoroscopy Specimen (Source) Anatomical Collection Method Collection Time Re ceived Time Location / / Volume Laterality 10/16/2021 3:00 PM CDT Impressions 10/16/2021 3:14 PM CDT 1. Silent penetration with sensate aspir ation seen with thin liquid barium, which was reduced to trace silent penetration without aspiration using swallowing maneuver. 2. Silent penetration without aspiration seen with nectar thick liquid and pudding. 3. Pharyngeal contraction was bilaterall y weak. 4. Please refer to the separately dictat ed speech pathology report for further details and recommendations. Narrative 10/16/2021 3:14 PM CDT FULL RESULT: Examination: [place] MODIFIED BARIUM SWALLO W W SPEECH, 10/16/2021 2:57 PM Clinical History: Small cell carcinoma o f the upper lobe of the right lung status post chemotherapy and radiation completed 12/26/2020. Indication: Re-evaluation of swallowing function, dysphagia. Comparison: Modified barium swallow with speech on 01/30/2021. Technique: A modified barium swallow w as performed in conjunction with speech pathology. The patient was given barium mixed with a variety of consistencies including thin liquid, pudding, and cracker to swallow by mouth under videofluoroscopy. Findings: The oral bolus formation and transit were normal. There was no nasopharyngeal reflux. There was silent penetration with sensate aspiration seen with thin liquid barium, this was reduced to trace silent penetration without aspira tion using chin tuck swallowing maneuver. There was silent penetration without aspiration seen with nectar thick liquid and pudding. There was no penetration or a spiration seen with cracker. There was no pharyngeal residue. Pharyngeal contraction was bilaterally weak. Procedure Note Soyfa Ulloa MD - 10/16/2021Forma tting of this note might be different from the original. FULL RESULT: Examination: FL MODIFIED BARIUM SWALLOW W SPEECH, 10/16/2021 2:57 PM Clinical History: Small cell carcinoma o f the upper lobe of the right lung status post chemotherapy and radiation completed 12/26/2020. Indication: Re-evaluation of swallowing function, dysphagia. Comparison: Modified barium swallow with speech on 01/30/2021. Technique: A modified barium swallow was performed in conjunction with speech pathology. The patient was given barium mixed with a variety of consistencies including thin liquid, pudding, and cracker to swallow by mouth under videofluoroscopy. Findings: The oral bolus formation and t ransit were normal. There was no nasopharyngeal reflux. There was silent penetration with sensate aspiration seen with thin liquid barium, this was reduced to trace silent penetration without aspiration using chi n tuck swallowing maneuver. There was silent penetration without aspiration seen with nectar thick liquid and pudding. There was no penetration or aspiration seen with cracker. There was no pharyngeal residue. Pharyng eal contraction was bilaterally weak. IMPRESSION: 1. Silent penetration with sensate aspir ation seen with thin liquid barium, which was reduced to trace silent penetration without aspiration using swallowing maneuver. 2. Silent penetration without aspiration seen with nectar thick liquid and pudding. 3. Pharyngeal contraction was bilaterall y weak. 4. Please refer to the separately dictat ed speech pathology report for further details and recommendations. Ronnie Tolentino MD IMG FLUOROSCOPY ORDERABLES (ABNORMAL) Respiratory PCR Panel, GLOBAL ACCOUNT DIRECTOR Swab (10/16/2021 8:05 AM CDT) [facility] Method Time Signature Adenovirus Not Not [place] MD Detected Detected [facility] Coronavirus 229E Not Not UT MD Detected Detected [facility] Coronavirus HKU1 Not Not [place] MD Detected Detected [facility] Coronavirus NL63 Not Not [place] MD Detected Detected [facility] Coronavirus OC43 Not Not [place] MD Detected Detected [facility] Human Not Not UT MD Metapneumovirus Detected Detected [facility] Human Detected Not UT MD Rhinovirus/Enterov (A) Detected [facility] Influenza A Not Not [place] MD Detected Detected [facility] Influenza A H1 Not Not [place] MD Detected Detected [facility] Influenza A H1 Not Not UT MD 2009 Detected Detected [facility] Influenza A H3 Not Not UT MD Detected Detected [facility] Influenza B Not Not UT MD Detected Detected [facility] Parainfluenza 1 Not Not [place] MD Detected Detected [facility] Parainfluenza 2 Not Not [place] MD Detected Detected [facility] Parainfluenza 3 Not Not [place] MD Detected Detected [facility] Parainfluenza 4 Not Not [place] MD Detected Detected [facility] Respiratory Not Not UT MD Syncytial Virus Detected Detected [facility] Bordetella Not Not UT pertussis Detected Detected [facility] Chlamydiophila Not Not [place] MD pneumoniae Detected Detected [facility] Mycoplasma Not Not [place] MD pneumoniae Detected Detected [facility] Specimen (Source) Anatomical Collection Method Collection Time Re ceived Time Location / / Volume Laterality Nasopharyngeal Swab 10/16/2021 8:05 10/18 AM CDT 8:06 AM CDT Ronnie Tolentino MD MICROBIOLOGY - GENERAL ORDER [place] Performing Organization Address City/State/ZIP Code Phon e Number [facility] Unless otherwise noted, [place] [address] [place] all lab tests performed by: Division of Pathology and Laboratory Medicine [address] [place] [address] Respiratory PCR Panel Path Review (10/16/2021 8:05 AM CDT) [facility] Method Time Signature RMP [place] Reviewed and Electronically signed by Pathologist: CRISS Parikh MD, PhD #[id number] [facility] Comment: Performed by real-time PCR methodology. This assay detects presence of nucleic a dru (DNA or RNA) for the pathogens reported. A result of "Not Detected" does not excl ude the possibility of the presence of one or more pathogens at less than the detec tion limits of this assay. This assay is FDA cleared for nasopharyngeal specimens on y. Specimen (Source) Anatomical Collection Method Collection Time Re ceived Time Location / / Volume Laterality Nasopharyngeal Swab 10/16/2021 8:05 10/18 AM CDT 8:06 AM CDT Ronnie Tolentino MD MICROBIOLOGY - GENERAL ORDER [place] Performing Organization Address City/State/ZIP Code Phon e Number [facility]CER Unless otherwise noted, [address] all lab tests performed by: Division of Pathology and Laboratory Medicine [address] [place] [address] MRSA Screening Culture (10/15/2021 4:25 PM CDT) Component Value Ref Test Analysis Performed At Patholo gist Range Method Time Signature Final Report No Methicillin [facility] Staphylococcus CANCER aureus isolated. CENTER Path Review The results have been review ed and electronically signed by Pathologist: [place] MD Darnell Parikh MD, PhD #[id number] [facility] Specimen Anatomical Collection Method Collection Time Receive d Time (Source) Location / / Volume Laterality Nasal 10/15/2021 4:25 PM 6:59 CDT PM CDT Felix Bazzi MD MICROBIOLOGY - GENERAL ORDER [place] Performing Organization Address City/[facility] Phon e Number [facility] CANCER Unless otherwise noted, [address] all lab tests performed by: Division of Pathology and Laboratory Medicine [address] [place] [address] (ABNORMAL) Troponin T (In-House) (10/15/2021 1:15 PM CDT)Only the most recent of 5 resultswithin the time period is included. P athologist Signature Troponin T 23 (H) <=18 ng/L [facility] Comment: < 19 ng/L Suggest retest at 3 to 6 hours later to rule out myocardial infarction >= 19 to <=52 ng/L Pos sible myocardial injury. Suggest retest at 3 hours. - a change of < 20 ng/L, retest at 6 hours - a change of >= 20 ng/L, suggestive of myocardial infarction > 52 ng/L Suggestive of myocardial infarction Critical value will be reported when cTn T is > 52 ng/L and only reported for the first in a series. Hemolyzed specimens with Hemolysis Index >100 (100 mg/dl or moderate hemolysis) may cause interferences and falsely low results. Specimen Anatomical Collection Method Collection Time Receive d Time (Source) Location / / Volume Laterality Blood 10/15/2021 1:15 PM 2 1:33 CDT PM CDT Verónica Thakkar MD LAB BLOOD ORDERABLES Performing Organization Address City/State/ZIP Code Phon e Number [facility] CANCER Unless otherwise noted, [place] [address] [place] all lab tests performed by: Division of Pathology and Laboratory Medicine [address] [facility] CT Chest Pulmonary Embolism with Contrast (10/15/2021 12:58 PM CDT)Only the most recent of2 resultswithin the time period is included. Anatomical Region Laterality Modality Chest Computed Tomography Specimen (Source) Anatomical Collection Method Collection Time Re ceived Time Location / / Volume Laterality 10/15/2021 1:17 PM CDT Impressions 10/15/2021 1:31 PM CDT 1. No evidence of pulmonary embolism. 2. New patchy left lung opacities likely represent pneumonia. Reactive sagrario enlargement. 3. Post therapy changes right upper lobe . Narrative 10/15/2021 1:31 PM CDT FULL RESULT: Examination: CT CHEST PULMONARY EMBOLISM W CONTRAST, 10/15/2021 12:58 PM Clinical History: Decompensated COPD wit h acute exacerbation. Small cell lung cancer. Right upper lobe radiation therapy completed April 2020. Indication: pleuritic chest pain, Tachyc ardia (HR more than 100 bpm), D-dimer not done, No iodinated contrast contraindication, Chest pain, pleuritic, Cough, Dyspnea on exertion, Hypoxia, Pulmonary embo lism is leading diagnosis, evaluate for pulmonary embolism, pleurisy and dyspnea Comparison: 09/03/2021 Technique: Spiral CT of the chest is per formed using intravenous contrast. Findings: No evidence of embolism. Heart size is n ormal. No pericardial fluid or thickening. Multivessel coronary calcifications. There has been slight interval enlargeme nt of small nodes at the left mediastinum and hilum, most likely reactive enlargement. Lungs are emphysematous. Mild diffuse br onchial wall thickening. Unchanged right apical irregular opacity which may represent scarring. Radiation sequela in the subpleural right upper lobe. Superimposed right upper lobe consolidation/pneumoni a seen on the prior exam has almost resolved. No evidence of recurrent tumor. New patchy opacities in the left lung (for instance images 94 and 117) likely repres ent pneumonia. Persistent lingular nodul ar opacity on image 113 of series 13, possibly nodular atelectasis/scarring. Recommend continued follow-up. Trace left pleural fluid. No adrenal nodularity. No suspicious skeletal lesions. Procedure Note Lazaro Nolasco MD - 10/15/2021Formattin g of this note might be different from the original. FULL RESULT: Examination: CT CHEST PULMONARY EMBOLISM W CONTRAST, 10/15/2021 12:58 PM Clinical History: Decompensated COPD wit h acute exacerbation. Small cell lung cancer. Right upper lobe radiation therapy completed April 2020. Indication: pleuritic chest pain, Tachyc ardia (HR more than 100 bpm), D-dimer not done, No iodinated contrast contraindication, Chest pain, pleuritic, Cough, Dyspnea on exertion, Hypoxia, Pulmonary embolism is leading diagnosis, evaluate for pulmonar y embolism, pleurisy and dyspnea Comparison: 09/03/2021 Technique: Spiral CT of the chest is per formed using intravenous contrast. Findings: No evidence of embolism. Heart size is n ormal. No pericardial fluid or thickening. Multivessel coronary calcifications. There has been slight interval enlargeme nt of small nodes at the left mediastinum and hilum, most likely reactive enlargement. Lungs are emphysematous. Mild diffuse br onchial wall thickening. Unchanged right apical irregular opacity which may represent scarring. Radiation sequela in the subpleural right upper lobe. Superimposed right upper lobe consolidation/pneumonia seen on the prio r exam has almost resolved. No evidence of recurrent tumor. New patchy opacities in the left lung (for instance images 94 and 117) likely represent pneumonia. Persistent lingular nodular opacity on image 113 of series 13, possibly nodular atelectasis/scarring. Recommend continued follow-up. Trace left pleural fluid. No adrenal nodularity. No suspicious skeletal lesions. IMPRESSION: 1. No evidence of pulmonary embolism. 2. New patchy left lung opacities likely represent pneumonia. Reactive sagrario enlargement. 3. Post therapy changes right upper lobe . Verónica Thakkar MD IMG CT ORDERABLES Legionella Urine Antigen Path Review (10/15/2021 12:17 PM CDT)Only the most recent of2 resultswithin the time period is included. Component Value Ref Test Analysis Performed At Patholo gist Range Method Time Signature Legionella Reviewed and Electronically signed by Pathologist: [place] Urine Antigen Darnell Parikh MD, PhD #[id number] [facility] Comment: DARNELL PARIKH MD, PhD - [id number] Dictated by: DARNELL PARIKH MD, PhD - [phone] Dictated Date/Time: 10.17.2021 10:56 AM CDT Transcribed Date/Time: 10.17.2021 10:56 AM CDT Electronically Signed By: DARNELL PARIKH MD, PhD - [id number] on 10.17.2021 10:56 AM Specimen Anatomical Collection Method Collection Time Receive d Time (Source) Location / / Volume Laterality Urine 10/15/2021 12:17 10/16/2021 PM CDT 11:26 AM CDT Verónica Thakkar MD MICROBIOLOGY - GENERAL ORDER [place] Performing Organization Address City/State/ZIP Code Phon e Number [facility] Unless otherwise noted, [address] all lab tests performed by: Division of Pathology and Laboratory Medicine [address] [place] [address] Streptococcal Urine Antigen Path Review (10/15/2021 12:17 PM CDT)Only the most recent of2 resultswithin the time period is included. Component Value Ref Test Analysis Performed Pathologis t Range Method Time At [facility] Streptococcal Reviewed and Electronically signed by Pathologist: [place] Urine Antigen Darnell Parikh MD, PhD #[id number] [facility] Comment: DARNELL PARIKH MD, PhD - [id number] Dictated by: DARNELL PARIKH MD, PhD - [phone] Dictated Date/Time: 10.16.2021 13:06 PM CDT Transcribed Date/Time: 10.16.2021 13:06 PM CDT Electronically Signed By: DARNELL PARIKH MD, PhD - [id number] on 10.16.2021 13:06 PM Specimen Anatomical Collection Method Collection Time Receive d Time (Source) Location / / Volume Laterality Urine 10/15/2021 12:17 10/16/2021 PM CDT 11:26 AM CDT Verónica Thakkar MD MICROBIOLOGY - GENERAL ORDER [place] Performing Organization Address City/[facility] Phon e Number [facility] CANCER Unless otherwise noted, [address] all lab tests performed by: Division of Pathology and Laboratory Medicine [address] [place] [address] Streptococcus pneumoniae Urine Antigen (10/15/2021 12:17 PM CDT)Only the most recent of2 resultswithin the time period is included. Component Value Ref Range Test Analysis Performed Pathologis t Method Time At [facility] Streptococcal Presumptive negative for S. pneumoniae antigen in the urine, suggesting no current or recent pneumococcal infection. However, infection due to S. pneumoniae cannot be completely ruled out since the leve Negative [facility] Urine Antigen l of antigen present in the urine may be below the [place] Interpretation detection limit of the test. [facility] Streptococcal Negative Negative [facility] Urine Antigen [facility] Specimen Anatomical Collection Method Collection Time Receive d Time (Source) Location / / Volume Laterality Urine 10/15/2021 12:17 10/15/2021 2:23 PM CDT PM CDT Verónica Thakkar MD MICROBIOLOGY - GENERAL ORDER [place] Performing Organization Address [facility] Phon e Number [facility] Unless otherwise noted, [address] all lab tests performed by: Division of Pathology and Laboratory Medicine [address] [place], [place] [address]d Legionella Urine Antigen (10/15/2021 12:17 PM CDT)Only the most recent of2 resultswithin the time period is included. Component Value Ref Test Analysis Performed At Patholo gist Range Method Time Signature Legionella Urine Negative for L. pneumophila serogroup 1 antigen, suggesting no recent or current infection. However, infections due to other serogroups and species of Legionella are not detected by this assay. In addition, antigen may not be present in the urine in [facility] Antigen early infection and the leve l of antigen present in the urine may be below the detection limit of the test. [facility] Legionella Urine Negative [facility] Interpretation [facility]ENTER Specimen Anatomical Collection Method Collection Time Receive d Time (Source) Location / / Volume Laterality Urine 10/15/2021 12:17 10/15/2021 2:23 PM CDT PM CDT Verónica Thakkar MD MICROBIOLOGY - GENERAL ORDER [place] Performing Organization Address City/State/ZIP Code Phon e Number [facility] CANCER Unless otherwise noted, [place] [address] CENTER all lab tests performed by: Division of Pathology and Laboratory Medicine [address] [place] COVID-19 (SARS-CoV-2)Asymptomatic-LT (10/15/2021 10:08 AM CDT) [facility] Method Time Signature COVID19 Not Detected Not Detected [place] (SARS-CoV-2) [facility] COVID19 SARS Inpatient IA Indication Admission [facility] Covid 19 See Note IA Comment [facility] Comment: The kacy SARS-CoV-2 nucleic acid test f or use on the kacy [employer] System is a real-time RT-PCR assay intended for the qualitative detection of SARS-CoV-2 (COVID-19) viral RNA in nasopharyngeal swabs from either individuals suspected of COVID-1 9 by their healthcare provider or from any individu al, including individuals without symptoms or other reasons to suspect COVID-19. A fact sheet for patients provided by the jig and fixture [employer] ([employer]) can be reviewed at: https://www.fda.gov/media/148135/downloa d. A fact sheet for Health Care providers is provided by the j[employer] and fixture builder ([employer]) and can be reviewed at: https://www.fda.gov/media/371307/download Results must be interpreted within the c ontext of all relevant clinical and laboratory findings and should not form the sole basis for a diagnosis or treatment decision. Positive results do not rule out bacterial infection or co- infection with other viruses. Negative results do not preclud e SARS-CoV-2 infection and must be combined with clinical observations, patient history, and/or epidemiological information. This assay has been authorized by the [facility] for use only under Emergency Use Authorization (EUA) in laboratories that have been CLIA-certified to perform moderate-complexity and high-complexity tests. The [facility], CLIA Accreditation #[id number] a nd CAP Accreditation #[id number], verified the performance characteristics of this assay. Internal controls are used to monitor all stages of the test process. Specimen (Source) Anatomical Collection Method Collection Time Re ceived Time Location / / Volume Laterality Nasopharyngeal Swab 10/15/2021 10:08 09/28 AM CDT 10:30 AM CDT Verónica Thakkar MD MICROBIOLOGY - GENERAL ORDER [place] Performing Organization Address City/State/ZIP Code Phon e Number [facility] CANCER Unless otherwise noted, [place] [address] [place] all lab tests performed by: Division of Pathology and Laboratory Medicine [address] [place] (ABNORMAL) Lower Respiratory Culture w/Gram Stain (10/15/2021 10:08 AM CDT)Only the most recent of2 resultswithin the time period is included. Component Value Ref Test Analysis Performed At [facility] gist Range Method Time Signature Final Report Moderate Presumptive Streptococcus pneumoniae CRISS CARDENAS ... [place] Normal site home present. CAN CER (A) CENTER Path Review The results have been review ed and electronically signed by Pathologist: [place] MD Darnell Parikh MD, PhD #[id number] [place] () [facility] Gram Stain Few WBC's seen IA Report Epithelial cells seen [place] Few Gram Positive Cocci in pairs CANCER () [place] Organism Streptococcus IA pneumoniae (A) [facility] Specimen Anatomical Collection Method Collection Time Receive d Time (Source) Location / / Volume Laterality Sputum 10/15/2021 10:08 10/15/2021 1:42 AM CDT PM CDT Organism Antibiotic Method Susceptibility Streptococcus pneumoniae *KELLEE expressed in mcg/mL ETEST KELLEE: MINT Streptococcus pneumoniae Azithromycin ETEST 12: Res istant Streptococcus pneumoniae Ceftriaxone (Meningitis) ETEST 0.5: Susceptible Streptococcus pneumoniae Ceftriaxone Non-Meningitis ETEST 0.5: Susceptible Streptococcus pneumoniae Penicillin ETEST 0.75: S usceptible Streptococcus pneumoniae Penicillin (Meningitis) ETEST 0.75: Resistant Streptococcus pneumoniae Penicillin - Oral ETEST 0.75: Intermediate Streptococcus pneumoniae Vancomycin ETEST 0.5: [place] sceptible Streptococcus pneumoniae Levofloxacin ETEST 0.75: S usceptible Streptococcus pneumoniae Tetracycline ETEST 0.25: S usceptible Comment: If susceptible to T etracycline, will also be susceptible to Doxycycline and Minocycline. If Non-susc eptible to Tetracycline, may still be susceptible to Doxycycline and/or Minocycli ne but further testing performed only upon request. Verónica Thakkar MD MICROBIOLOGY - GENERAL ORDER [place] Performing Organization Address City/[facility]/ZIP Code Phon e Number [facility] CANCER Unless otherwise noted, [address] all lab tests performed by: Division of Pathology and Laboratory Medicine [facility] Doyle Jones aPTT (10/15/2021 10:08 AM CDT) athologist Signature aPTT 29.9 24.7 - 36.8 [facility] Specimen Anatomical Collection Method Collection Time Receive d Time (Source) Location / / Volume Laterality Blood 10/15/2021 10:08 10/15/2021 AM CDT 10:19 AM CDT Verónica Thakkar MD LAB BLOOD ORDERABLES Performing Organization Address [facility] Code Phon e Number [facility] CANCER Unless otherwise noted, [address] all lab tests performed by: Division of Pathology and Laboratory Medicine [facility]5 Doyle Jones (ABNORMAL) NT-Pro BNP (In-House) (10/15/2021 10:08 AM CDT)Only the most recent of2 resultswithin the time period is included. athologist [facility] NT ProBNP 137 (H) <=125 pg/mL [facility] Specimen Anatomical Collection Method Collection Time Receive d Time (Source) Location / / Volume Laterality Blood 10/15/2021 10:08 10/15/2021 AM CDT 11:00 AM CDT Verónica Thakkar MD LAB BLOOD ORDERABLES Performing Organization Address City/[facility] Phon e Number [facility] CANCER Unless otherwise noted, [address] all lab tests performed by: Division of Pathology and Laboratory Medicine [facility] Doyle Jones (ABNORMAL) Prothrombin Time with INR (10/15/2021 10:08 AM CDT) athologist Signature PT 13.5 11.5 - 13.9 [facility] INR 1.11 (H) 0.90 - 1.10 [facility] Specimen Anatomical Collection Method Collection Time Receive d Time (Source) Location / / Volume Laterality Blood 10/15/2021 10:08 10/15/2021 AM CDT 10:19 AM CDT Verónica Thakkar MD LAB BLOOD ORDERABLES Performing Organization Address City/[facility] Phon e Number [facility] CANCER Unless otherwise noted, [address] all lab tests performed by: Division of Pathology and Laboratory Medicine [address] [place] (ABNORMAL) LDH (10/15/2021 10:08 AM CDT) athologist Signature LDH 247 (H) 135 - 225 [facility] U/L [facility] CENTER Comment: Results greater than 1651 U/L m ay not be reliable due to matrix effect with extended dilution as it exceeds the manu facturer's recommended limit. Caution should be exercised when interpreting such valu es and done in conjunction with clinical context. Specimen Anatomical Collection Method Collection Time Receive d Time (Source) Location / / Volume Laterality Blood 10/15/2021 10:08 10/15/2021 AM CDT 11:00 AM CDT Verónica Thakkar MD LAB BLOOD ORDERABLES Performing Organization Address City/[facility] Phon e Number [facility] CANCER Unless otherwise noted, [address] all lab tests performed by: Division of Pathology and Laboratory Medicine [facility] (10/15/2021 10:08 AM CDT)Only the most recent of2 resultswithin the time period is included. athologist Signature CK MB 2.[address] [facility] ng/mL [facility] Specimen Anatomical Collection Method Collection Time Receive d Time (Source) Location / / Volume Laterality Blood 10/15/2021 10:08 10/15/2021 AM CDT 11:00 AM CDT Verónica Thakkar MD LAB BLOOD ORDERABLES Performing Organization Address City/[facility] Phon e Number [facility] CANCER Unless otherwise noted, [address] all lab tests performed by: Division of Pathology and Laboratory Medicine [address] [place] Creatine Kinase (10/15/2021 10:08 AM CDT)Only the most recent of2 resultswithin the time period is included. P athologist Signature CK 48 39 - 308 [facility] Specimen Anatomical Collection Method Collection Time Receive d Time (Source) Location / / Volume Laterality Blood 10/15/2021 10:08 10/15/2021 AM CDT 11:00 AM CDT Verónica Thakkar MD LAB BLOOD ORDERABLES Performing Organization Address City/State/ZIP Code Phon e Number [facility] Unless otherwise noted, [place] [address] [address] all lab tests performed by: Division of Pathology and Laboratory Medicine [facility]5 [facility] (ABNORMAL) Respiratory Viral Panel + COVID-19, Nasopharyngeal Swab (09/03/2021 5:14 PM GROVE SUPERINTENDENT) [facility] Method Time Signature Adenovirus Not Not [facility] Detected Detected [facility] Coronavirus 229E Not Not [facility] Detected Detected [facility] Coronavirus HKU1 Detected Not [facility] (A) Detected [facility] Coronavirus NL63 Not Not [facility] Detected Detected [facility] Coronavirus OC43 Not Not [facility] Detected Detected [facility] COVID19 Not Not [facility] (SARS-CoV-2) Detected Detected [facility] Human Not Not [facility] Metapneumovirus Detected Detected [facility] Human Not Not [facility] Rhinovirus/Enterov Detected Detected [facility] Influenza A Not Not [facility] MD Detected Detected [facility] Influenza A H1 Not Not [facility] Detected Detected [facility] Influenza A H1 Not Not UT 2008 Detected Detected [facility] Influenza A H3 Not Not [facility] MD Detected Detected [facility] Influenza B Not Not [facility] MD Detected Detected [facility] Parainfluenza 1 Not Not [facility] MD Detected Detected [facility] Parainfluenza 2 Not Not [facility] MD Detected Detected [facility] Parainfluenza 3 Not Not [facility] MD Detected Detected [facility] Parainfluenza 4 Not Not [facility] MD Detected Detected [facility] Respiratory Not Not [facility] Syncytial Virus Detected Detected [facility] Bordetella Not Not [facility] MD Parapertussis Detected Detected [facility] Bordetella Not Not [facility] pertussis Detected Detected [facility] Chlamydiophila Not Not [facility] MD pneumoniae Detected Detected [facility] Mycoplasma Not Not [facility] pneumoniae Detected Detected [facility] Specimen (Source) Anatomical Collection Method Collection Time Re ceived Time Location / / Volume Laterality Nasopharyngeal Swab 09/03/2021 5:14 09/03 PM GROVE SUPERINTENDENT 5:51 PM GROVE SUPERINTENDENT Narrative [facility] - 2 7:19 PM GROVE SUPERINTENDENT The BioFire RP2.1 is a real-time, nested multiplexed polymerase chain reaction test designed to simul taneously identify nucleic acids from 22 different viruses and bacteria associated with respiratory tract infection, including SARS-CoV-2, from a single nasopharyngeal swab (BUILDING ILLUMINATING ENGINEER) specimen obtai missy from individuals suspected of respiratory tract infections, including COVID-19. Results must be interpreted within the c ontext of all relevant clinical and laboratory findings and should not form the sole basis for a diagnosis or treatment decision. Positive results do not rule out coninfection with other organisms. Nega tive results in the setting of a respiratory illness may be due to infection with pathogens that are not detected by this panel, or a lower respiratory tract infection that may not be detected by an BUILDING ILLUMINATING ENGINEER specimen. Internal controls are used to monitor al l stages of the test process and assess for possible amplification inhibitors. If inhibition is detected, testing is repeated and if inhibition is confirmed the s pecimen is resulted as "Invalid". When a n "Invalid" result occurs, it is recommended to wait 3 days before submitting a new specimen for testing if clinically indicated. This assay has been approved by the FDA for use in laboratories that have been CLIA-certified to perform moderate-complexity and high-complexity tests. [facility], CLIA Accreditation #[id number] and CAP Accreditation #[id number], verified the per formance characteristics of this assay. [facility] performs the assay using the Oco System. Jyoti Morales MD MICROBIOLOGY - GENERAL ORDER [place] Performing Organization Address City/State/ZIP Code Phon e Number [facility] CANCER Unless otherwise noted, [place] [address] [place] all lab tests performed by: Division of Pathology and Laboratory Medicine [facility]5 [facility] CT Chest with Contrast (08/13/2021 8:15 AM GROVE SUPERINTENDENT) Anatomical Region Laterality Modality Chest Computed Tomography Specimen (Source) Anatomical Collection Method Collection Time Re ceived Time Location / / Volume Laterality 08/13/2021 8:41 AM GROVE SUPERINTENDENT Impressions 08/13/2021 8:58 AM GROVE SUPERINTENDENT * Stable post therapeutic changes in the right lung. No recurrent or metastatic disease. Narrative 08/13/2021 8:58 AM GROVE SUPERINTENDENT FULL RESULT: Examination: CT CHEST W CONTRAST, 8:15 AM Clinical History: Non-small cell lung ca ncer <Unspecified side> Indication: Cancer staging or restaging Comparison: CT 04/20/2021. Technique: CT of the chest was performed using intravenous contrast. Findings: The lungs are severely emphysematous. St able sequelae of radiation therapy in the right upper lobe. Right apical nodular opacity is unchanged, image 21. Previously seen small nodular opacities in the li ngula have resolved. No new or enlarging lung nodules. No new consolidation or mass. Mild diffuse bronchial wall thickening. Mild retained secretions in the trachea. Right hilar lymph node is decreased in s ize measuring 1 cm, previously 1.4 cm, image 53 series 301. Scattered small mediastinal lymph nodes are also decreased in size. No new lymphadenopathy. No pleural effusion. Heart size is normal. No pericardial eff usion. Mild scattered coronary artery calcifications. The visualized upper abdominal structure s are unremarkable. No suspicious skeletal lesions. Procedure Note Zoltan Mobley MD - 08/13/2021 FULL RESULT: Examination: CT CHEST W CONTRAST, 8:15 AM Clinical History: Non-small cell lung ca ncer <Unspecified side> Indication: Cancer staging or restaging Comparison: CT 04/20/2021. Technique: CT of the chest was performed using intravenous contrast. Findings: The lungs are severely emphysematous. St able sequelae of radiation therapy in the right upper lobe. Right apical nodular opacity is unchanged, image 21. Previously seen small nodular opacities in the lingula have resolved. No new or enlarging lung nodules. No new consolidation or mass. Mild diffuse bronchial wall thickening. Mild retained secretions in the trachea. Right hilar lymph node is decreased in s ize measuring 1 cm, previously 1.4 cm, image 53 series 301. Scattered small mediastinal lymph nodes are also decreased in size. No new lymphadenopathy. No pleural effusion. Heart size is normal. No pericardial eff usion. Mild scattered coronary artery calcifications. The visualized upper abdominal structure s are unremarkable. No suspicious skeletal lesions. IMPRESSION: * Stable post therapeutic changes in the right lung. No recurrent or metastatic disease. Nicole Chunyi Del Rosario GLOBAL ACCOUNT DIRECTOR IMG CT ORDERABLES POC Creatinine (08/13/2021 7:30 AM GROVE SUPERINTENDENT)Only the most recent of2 resultswithin the time period is included. P athologist Signature POC Crea 0.6 0.6 - 1.3 POC TEL[facility] mg/dL Comment: Medications, especially hydroxyurea or s upplements, such as ascorbate, can interfere with test results causing a falsely and significantly higher result than expected. If a problem is suspected with a patient's result, a sample should be sent to the laboratory for confirmatory testing. Method description: The i-STAT is an james lyzer used for in vitro quantification of various analytes in whole blood. The device uses a single disposable cartridge which contains microfabricated sensors, a calibration solution, fluidics system, and a waste chamber. Each test cartridge contains ch emically sensitive biosensors on a silicon chip that are configured to perform specific tests. The microfabricated sensors measure analyte concentration by an electrochemical assay. POC eGFR-AA 121 >=60 mL/min/1.73 m2 POC TELC OR Comment: Normal eGFR >= 60 mL/min/1.73 m2 The eGFR is calculated using the CKD-EPI equation. The eGFR declines with age. eGFR <60 mL/min/1.73 m2 is considered as "decreased" This equation should only be used for patients 18 and older. According to the National Kidney Found[employer] ion's Kidney Disease Outcome Quality Initiative (KDOQI) classification and 2012 Kidney Disease Improving Global Outcomes (KDIGO) Clinical Practice Guideline, the stage of CKD should be categorized based on estimated GFR. Stage Description GFR mL/min/1.73 m2 1 Kidney damage with normal or high GFR >=90 2 Kidney damage with mild decrease in GF R 60-89 3a Mild to moderate decrease in GFR 45-59 3b Moderate to severe decrease in GFR 30-44 4 Severe decrease in GFR 15-29 5 Kidney failure <15 (or dialysis) POC eGFR-JCARLOS 105 >=60 mL/min/1.73 m2 POC TEL COR Comment: Normal eGFR >= 60 mL/min/1.73 m2 The eGFR is calculated using the CKD-EPI equation. The eGFR declines with age. eGFR <60 mL/min/1.73 m2 is considered as "decreased" This equation should only be used for patients 18 and older. According to the National Kidney [employer] ion's Kidney Disease Outcome Quality Initiative (KDOQI) classification and 2012 Kidney Disease Improving Global Outcomes (KDIGO) Clinical Practice Guideline, the stage of CKD should be categorized based on estimated GFR. Stage Description GFR mL/min/1.73 m2 1 Kidney damage with normal or high GFR >=90 2 Kidney damage with mild decrease in GF R 60-89 3a Mild to moderate decrease in GFR 45-59 3b Moderate to severe decrease in GFR 30-44 4 Severe decrease in GFR 15-29 5 Kidney failure <15 (or dialysis) POC Clean Dev Yes POC [facility] Performing Lab [facility] POC TELCO R Comment: [facility], [facility]5 [facility], [place] [address]; Lab Direct or: Karma Arciniega MD Specimen Anatomical Collection Method Collection Time Receive d Time (Source) Location / / Volume Laterality Blood 08/13/2021 7:30 AM 7:30 GROVE SUPERINTENDENT AM GROVE SUPERINTENDENT Nicole Del Rosario NP POCT ORDERABLES - DEVICE Performing Organization Address City/State/ZIP Code Phon e Number POC T[facility] CT Chest Abdomen Pelvis with Contrast (04/20/2021 2:35 PM CDT) Anatomical Region Laterality Modality Abdomen, Pelvis, Chest Computed Tomograp hy Specimen (Source) Anatomical Collection Method Collection Time Re ceived Time Location / / Volume Laterality 04/20/2021 2:39 PM CDT Impressions 04/20/2021 2:58 PM CDT Interval decrease of right upper lobe cavitation superimposed to lung post radiation changes. Follow-up is advised. Interval decrease of bilateral patchy sahara ng opacities likely represent infection/inflammation. Stable right hilar and mediastinal nodes . 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 Findings: Interval decrease of right upper lobe ca vitation measuring 1 cm compared to 1.9 cm superimposed to lung post radiation changes. Stable right apical opacities consistent with scarring. Interval decrease of opacities in the posterior aspect of right upper lobe and lingula. Scattered lung nodules are stable. Bilateral emphysematous lung changes. Stable 1.4 cm and right hilar nodes. Sta ble multiple compartmental subcentimeter mediastinal nodes but no evidence of adenopathy. Left hilar nodes are not exceeding 1 cm. Bilateral supraclavicular nodes measuring 5 mm. No evidence of axillary adenopathy. Thoracic aorta and pulmonary artery with normal caliber. Atherosclerosis of thoracic and coronary arteries. Cardiac chambers are normal in size. No evidence of pleural or pericardial effusions. Liver, pancreas and spleen are normal. G allbladder is partially distended without evidence cholelithiasis. The adrenal glands are normal. Wedge-sha ped kidney hypodensities are not seen in the current abdominal study. No evidence of hydronephrosis. No evidence of retroperitoneal adenopath y. Bladder is minimally distended. No evide nce of pelvic masses. Gastrostomy feeding tube is in place. Degenerative change of the thoracolumbar spine. No evidence of bony destructive lesions. Procedure Note Deshawn Gtz MD - 04/20/2021Form atting of this note might be different from the original. 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 Findings: Interval decrease of right upper lobe ca vitation measuring 1 cm compared to 1.9 cm superimposed to lung post radiation changes. Stable right apical opacities consistent with scarring. Interval decrease of opacities in the posterior aspect of right upper lobe and lingula. Scattered lung nodules are stable. Bilateral emphysematous lung changes. Stable 1.4 cm and right hilar nodes. Sta ble multiple compartmental subcentimeter mediastinal nodes but no evidence of adenopathy. Left hilar nodes are not exceeding 1 cm. Bilateral supraclavicular nodes measuring 5 mm. No evidence of axillary adenopathy. Thoracic aorta and pulmonary artery with normal caliber. Atherosclerosis of thoracic and coronary arteries. Cardiac chambers are normal in size. No evidence of pleural or pericardial effusions. Liver, pancreas and spleen are normal. G allbladder is partially distended without evidence cholelithiasis. The adrenal glands are normal. Wedge-sha ped kidney hypodensities are not seen in the current abdominal study. No evidence of hydronephrosis. No evidence of retroperitoneal adenopath y. Bladder is minimally distended. No evide nce of pelvic masses. Gastrostomy feeding tube is in place. Degenerative change of the thoracolumbar spine. No evidence of bony destructive lesions. IMPRESSION: Interval decrease of right upper lobe ca vitation superimposed to lung post radiation changes. Follow-up is advised. Interval decrease of bilateral patchy sahara ng opacities likely represent infection/inflammation. Stable right hilar and mediastinal nodes . Jackie Mendez GLOBAL ACCOUNT DIRECTOR IMG CT ORDERABLES MRI Brain with and without Contrast (04/20/2021 11:10 AM CDT) Anatomical Region Laterality Modality Head Magnetic Resonance Specimen (Source) Anatomical Collection Method Collection Time Re ceived Time Location / / Volume Laterality 04/20/2021 5:29 PM CDT Impressions 04/20/2021 5:33 PM CDT 1. No intracranial metastases. 2. No acute intracranial abnormalities . Narrative 04/20/2021 5:33 PM CDT FULL RESULT: EXAMINATION: MRI BRAIN W WO CONTRAST on 04/20/2021 11:10 AM HISTORY: Small cell carcinoma, NOS of up per lobe, lung <Right> INDICATION: Not for stroke, trauma, head ache, sinusitis, or syncope, Cancer staging or restaging COMPARISON: 04/25/2020 TECHNIQUE: Multi-sequence MRI of the bra in with and without intravenous contrast as per standard departmental protocol. FINDINGS: There is no definite abnormal parenchyma l or leptomeningeal enhancement. No abnormal enhancement is seen at the internal auditory canals or at Meckel's cave bilaterally. There are scattered foci of none nhancing FLAIR abnormality in the cerebr al white matter suggesting mild small vessel ischemic disease changes for age. There is no worrisome T2 susceptibility. There is minimal opacification in the righ t inferior mastoids. Remainder of the pa ranasal sinuses are clear. Calvarial marrow signal is nonfocal. Procedure Note Abilio Moffett MD - 04/20/2021Formattin g of this note might be different from the original. FULL RESULT: EXAMINATION: MRI BRAIN W WO CONTRAST on 04/20/2021 11:10 AM HISTORY: Small cell carcinoma, NOS of up per lobe, lung <Right> INDICATION: Not for stroke, trauma, head ache, sinusitis, or syncope, Cancer staging or restaging COMPARISON: 04/25/2020 TECHNIQUE: Multi-sequence MRI of the bra in with and without intravenous contrast as per standard departmental protocol. FINDINGS: There is no definite abnormal parenchyma l or leptomeningeal enhancement. No abnormal enhancement is seen at the internal auditory canals or at Meckel's cave bilaterally. There are scattered foci of nonenhancing FLAIR abnormality in the cerebral white matter suggesting mild small vessel ischemic disease changes for age. There is no worrisome T2 susceptibility. There is minimal opacification in the right inferior mastoids. Remainder of the paranasal sinuses are clear. Calv arial marrow signal is nonfocal. IMPRESSION: 1. No intracranial metastases. 2. No acute intracranial abnormalities. Jackie Mendez NP IMG MRI ORDERABLES after 03/07/2021 Insurance Payer Benefit Plan / Subscriber ID Effective Phone Address T ype Group Dates [facility] [id number] 2020-Prese [address] 72 Medicare MEDICARE MEDICARE nt [place], [place] ADVANTAGE ADVANTAGE [id number] Guarantor Name Account Type Relation to Date of Phone Billing Patient Address Chato Moreno Personal/Family Self 1955 [id number] [phone] (Work) [place] [id number] Chato Moreno Personal/Family Self 1955 [id number] [facility] [address] [place] [id number] Advance Directives Code Status Date Activated Date Inactivated Comments Full Code 10/15/2021 2:23 PM 10/24/2021 8:32 PM Full Code 09/03/2021 10:00 PM 09/07/2021 5:51 PM Full Code 02/16/2021 11:33 PM 03/02/2021 8:45 PM Full Code 01/22/2021 1:08 AM 01/30/2021 8:41 PM Full Code 01/04/2021 3:56 PM 01/19/2021 6:53 PM 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
--- OUTSIDE RECORDS SUMMARY | 2022-03-07 10:54 | XMS REPORT | Continuity of Care Document ---
:1955 Author Organization [facility] t Address [address] [place] [address] Care Team Providers Name Role Phone [phone] Primary Care Physician Unavailable SYSTEM, PROVIDER NOT IN Attending Clinician Unavailable Lazaro ASSOCIATE FINANCIAL PLANNER, Constantine Attending Clinician Padmini CARDENAS, Maria Fernanda Fu Attending Clinician Ger JARAMILLO, Lolita Sommer Attending Clinician Unavailable Bibiana Pedersen RN Attending Clinician Unavailable Tyson JARAMILLO, Kasie Lehman Attending Clinician Unavailable Marshall JARAMILLO, Erin Lehman Attending Clinician Stella Goodrich Attending Clinician Daisy Shaffer RN Attending Clinician Unavailable Fito Gutierres MD Attending Clinician Karishma Chu RN Attending Clinician Unavailable BONI VAUGHAN Attending Clinician Unavailable Verónica Thakkar MD Attending Clinician Thelma Bowser DO Attending Clinician Judy CARDENAS, Ed Attending Clinician Randa CARDENAS, Tod Fu Attending Clinician Yovany Vaughan MDyssa Lilly Attending Clinician [phone] Jackson JARAMILLO, Arcadio Attending Clinician Unavailable Aisha CARDENAS, Edwige Orozco Attending Clinician Zane CARDENAS, Jenise Attending Clinician Dhiraj Fry CRNA Attending Clinician Jacquelyn CARDENAS, Shena Gudino Attending Clinician Unavailable TOD GLASS V. Attending Clinician Unavailable MARIA FERNANDA WASHINGTON V. Attending Clinician Unavailable JUDY, BEA Attending Clinician Unavailable Shantal Patiño MD, Deshawn Attending Clinician [phone] Dean JARAMILLO, Stella Stewart Attending Clinician Unavailable Price JARAMILLO, Ileana Ann Attending Clinician Unavailable GURPREET ESTES Attending Clinician Unavailable Aisha CARDENAS, Mehrdad Attending Clinician Gurpreet Estes MD Attending Clinician SOFI HART Attending Clinician Unavailable Michael Lopez RN Attending Clinician Unavailable Lela Sanon APN Attending Clinician Zulema Cedillo RN Attending Clinician Unavailable Tadeo CARDENAS, Herrera Attending Clinician HERRERA PIEDRA Attending Clinician Unavailable Jacki Campbell Attending Clinician Gucci ROUSSEAU, Sarah Ybarra Attending Clinician RAYMUNDO MARR Attending Clinician Unavailable Tejinder CARDENAS, Raymundo Attending Clinician NICOLE BENITEZ Attending Clinician Unavailable Miguel Ángel ASSOCIATE FINANCIAL PLANNER, Nicole Hirsch Attending Clinician Abdirizak Fenton MD Attending Clinician Génesis Farias RN Attending Clinician Unavailable Génesis Manzo RN Attending Clinician Unavailable Andrea ROUSSEAU, Jackie Attending Clinician Yudith Rivas RN Attending Clinician Unavailable Crista CARDENAS, Claude Attending Clinician CLAUDE TOBIN Attending Clinician Unavailable Elmira Lanier APN Attending Clinician Tegan CARDENAS, Giovanna Tanner Attending Clinician MARY BETH BENJAMIN Attending Clinician Unavailable Sravan [facility], Mary Beth Ann Attending Clinician Unavailable HERRERA COLON Attending Clinician Unavailable Rah CARDENAS, Herrera Attending Clinician Enzo PharmD, Wayne Attending Clinician Brandon JARAMILLO, Juan Lehman Attending Clinician Unavailable Lisa JARAMILLO, Gurpreet Ramírez Attending Clinician Unavailable Pineda WITT, Gabrielle Owens Attending Clinician Tejinder CHAPPELL, Naida Attending Clinician NAIDA MARR Attending Clinician Unavailable Wilfredo Santillan APN Attending Clinician Chris PharmD, Tanja Mroa Attending Clinician Unavailable Precious CARDENAS, Benedicto Attending Clinician Shivam JARAMILLO, Sahara Farah Attending Clinician IRINA SMITH Attending Clinician Unavailable GABRIELLE GONZALEZ Attending Clinician Unavailable MARCIN GARCIA Attending Clinician Unavailable MAYANK CALLES Attending Clinician Unavailable BENEDICTO CORDON Attending Clinician Unavailable RASHAAD PURVIS Attending Clinician Unavailable TANNER MATHEW Attending Clinician Unavailable BENEDICTO RAMSEY Attending Clinician Unavailable JACKSON LIND Attending Clinician Unavailable UNKNOWN, ATTENDING Attending Clinician Unavailable ROCKY RODRIGUEZ Attending Clinician Unavailable CODY CRANE Attending Clinician Unavailable AURELIANO EDWARD Attending Clinician Unavailable ORACIO REECE Attending Clinician Unavailable WILFREDO OLIVAS Attending Clinician Unavailable MAURICIO MAY Attending Clinician Unavailable HAYLEY TAPIA Attending Clinician Unavailable THELMA BOWSER Admitting Clinician Unavailable MEHRDAD ROD Admitting Clinician Unavailable CLAUDE TOBIN Admitting Clinician Unavailable TOD GLASS V. 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 Center Added automatic ally from request for surgery [id number] Family Family Disease Active 2020-06 Univers education education 1-09 [place]y of about pain about [place] management management 00 MD Fuentes [facility]erman [facility] History of History of Disease Recurre Univers radiation radiation nce 8-20 ity of therapy therapy 00:00: [place] 00 MD Fuentes [facility]immerman [facility] Pressure-i Pressure-i Disease Active Overview : Univers nduced nduced 7-09 Formattin ity of deep deep 00:00: g of this [place] tissue tissue 00 note damage of damage of might be An derso other site other site different n from the Cancer original. Center Site: Coccyx Sepsis Sepsis Disease Active Univers 7-08 ity of 00:00: [place] 00 MD Fuentes zimmerman [facility] Pulmonary Pulmonary Disease Active Uni vers embolism embolism 5-21 ity of 00:00: [place] 00 MD Fuentes zimmerman [facility] Stage 1 Stage 1 Disease Active Overview: Univ ers pressure pressure 5-18 Formattin ity of ulcer of ulcer of 00:00: g of this [place] as other site other site 00 note might be [place] different n from the Cancer original. Center Left ear- stage 1-inseamer related from nasal cannula Tube Tube Disease Active 2021-0 Univers feeding feeding 4-24 ity of diet diet 00:00: [place] 00 MD Fuentes zimmerman [facility] Pneumonia Pneumonia Disease Active Uni vers due to due to 4-22 ity of other other 00:00: [place] Gram-negat Gram-negat 00 MD ceci Dill bacteria bacteria [facility] Sequelae Sequelae Disease Active Unive rs of of 4-11 ity of hyperalime [place]alime [place] ntation [place]ation 00 MD Dill [facility] Adverse Adverse Disease Active Univers effect of effect of 3-23 ity of glucocorti glucocorti [place] coids and coids and 00 synthetic synthetic [place] rso analogues analogues [facility] Current Current Disease Active Univers use of use of 3-23 ity of insulin insulin 00:00: [place] 00 MD Fuentes zimmerman [facility] Anxiety Anxiety Disease Active Univers disorder disorder 3-17 ity of due to a due to a 00:00: [place] general general 00 medical medical Andmiguel condition condition n [facility] Disorder Disorder Disease Active Unive rs of fluid of fluid 3-08 ity of AND/OR AND/OR 00:00: [place] electrolyt electrolyt 00 [facility] Sinus Sinus Disease Active Univers tachycardi tachycardi 3-08 it y of a a 00:00: [place] 00 MD Fuentes zimmerman [facility] Pleuritic Pleuritic Disease Active Uni vers pain pain 2-26 ity of 00:00: [place] 00 MD Dill [facility] Anemia of Anemia of Disease Recurre Un yakov chronic chronic nce 2-22 ity of disease disease 00:00: [place] 00 MD Fuentes zimmerman [facility] Acute and Acute and Disease Active Uni vers chronic chronic 2-22 ity of respirator [place] y failure y failure 00 with with Fuentes hypoxia hypoxia [facility] Failure to Failure to Disease Active U nivers thrive thrive 2-22 ity of 00:00: [place] 00 MD Dill [facility] 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 An derso on on n Cancer Center Dyspnea Dyspnea Disease Active Univers 2-11 ity of 00:00: [place] 00 MD Fuentes zimmerman [facility] Decompensa Decompensa Disease Active U nivers lakhwinder COPD lakhwinder COPD 1-31 ity of with acute with acute 00:00: [place] exacerb[place] exacerbati 00 on on Fuentes zimmerman [facility] group home group home Disease Recurre Un yakov current current nce 1- ity of use of use of 00:00: [place] opiate opiate 00 analgesic analgesic [place] rso [facility] Center 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 Last Univers carcinoma carcinoma nce 0- Assessmen i ty of of upper of upper 00:00: t & Plan: [place] as lobe of lobe of 00 Sebastian CARDENAS right lung right lung g of this Anders[place] note n might be Cancer different Center from the original. Discussed case with Dr. Crane. Will refer patient to thoracic medical oncology and will allow them to determine whether repeat biopsy is indicated and determine further course of treatment . Discussed with patient and patient is in agreement .Patient will be placed on pending status. Other Other Disease Active Univers emphysema emphysema ity of Willis zimmerman [facility] Adjustment Adjustment Disease Recurre Univers disorder disorder nce ity of with mixed with mixed [place] anxiety anxiety and franco Dill depressed depressed n mood mood Cancer Center Chronic Chronic Disease Active Univers pain due pain due ity of to to [place] malignant malignant neoplastic neoplastic An derso disease disease n Cancer Center Slow Slow Disease Active Univers transit transit ity of const[place]ati [place] on MD Fuentes zimmerman [facility] Other Other Disease Active Univers psychologi psychologi it y of tracy or [facility] or [place] physical physical stress, stress, Anderso not not n elsewhere elsewhere Canc er classified classified Ce nter Personal Personal Disease Recurre Univ ers history of history of nce it y of COVID-19 COVID-19 [place] zimmerman [facility] Acute Acute Disease Resolve 2021-09-04 2021-09-04 Univers kidney kidney d 8-20 00:00:00 14:37:22 ity of injury due injury due [place] to to 00 hypovolemi hypovolemi An derso a a n [facility] Hypovolemi Hypovolemi Disease Resolve 2021-09-04 2021-09-04 Univers a a d 8 00:00:00 14:36:33 ity of 00:00: 00 [facility] High High Disease Resolve 2021-09-04 2021-09-04 Univers troponin I troponin I d 8 00:00:00 14:35:35 ity of level level 00:00: [place] 00 [facility] Hyperkalem Hyperkalem Disease Resolve 2021-09-04 2021-09-04 Univers ia ia d 02-16 00:00:00 14:36:15 ity of 00:00: [place] [facility] Aspergillo Aspergillo Disease Resolve 2021-09-04 2021-09-04 Univers sis with sis with d 10-25 00:00:00 14:36:44 it y of pneumonia pneumonia 00[place] [facility] Multiple Multiple Disease Resolve 2021-09-04 2021-09-04 Univers lung lung d 10-20 00:00:00 14:36:17 [place] of abscesses abscesses [place] [facility] Drug Drug Disease Resolve 2021-09-04 2021-09-04 Univers induced induced d 09-19 00:00:00 14:37:13 ity of diabetes diabetes 00:00: [place] mellitus mellitus 00 with with Fuentes hyperglyce hyperglyce n [facility] 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 Disease Resolve 2021-09-04 2021-09-04 Univers current current d 3- 00:00:00 14:37:15 ity of use of use of 00:00: [place] systemic systemic 00 [facility] Pneumocyst Pneumocyst Disease Resolve 2021-09-04 2021-09-04 Univers osis osis d 3- 00:00:00 14:35:43 [place] of pneumonia pneumonia 00[place] 00 [place] [facility] Cytomegalo Cytomegalo Disease Resolve 2021-09-04 2021-09-04 Univers virus virus d 3-08 00:00:00 14:35:47 ity of infection infection 00:00: a s 00 MD Fuentes zimmerman [facility] Diarrhea Diarrhea Disease Resolve 2021-09-04 2021-09-04 Univers d 2-22 00:00:00 14:37:13 ity of 00:00: [place] 00 MD Fuentes zimmerman [facility] Aspiration Aspiration Disease Resolve 2021-09-04 2021-09-04 Univers into lower into lower d 2-11 00:00:00 14:37:24 [place]y of respirator [place]irator [place] tract y tract 00 MD Fuentes zimmerman [facility] COVID-19 COVID-19 Disease Resolve 2021-09-04 2021-09-04 Univers d 1-30 00:00:00 14:35:39 ity of 00:00: 00 MD Fuentes zimmerman [facility] Amaurosis Amaurosis Disease Resolve 2021-09-04 2021-09-04 Univers fugax fugax d 4-29 00:00:00 14:36:43 ity of 00:: 00 MD Fuentes zimmerman [facility] Cancer-rel Cancer-rel Disease Resolve 2021-09-04 2021-09-04 Univers ated ated d 00:00:00 14:37:19 ity of fatigue fatigue [place] zimmerman [facility] Mixed Mixed Disease Resolve 2021-09-04 2021-09-04 Univers infectious infectious d 00:00:00 14:36:17 ity of disease disease Willis [facility]immerman [facility] Tomography Tomography Disease Resolve 2021-09-04 2021-09-04 Univers - chest - chest d 00:00:00 14:36:37 ity of abnormal abnormal [place] [facility]immerman [facility] Allergies, Adverse Reactions, Alerts Allergy Allergy Status Severity Reaction(s) Onset Inactive Treating Comm ents Source Name Type Date Date Clinician No Known DA Active U 2020-1 [facility] Allergie 0-30 [place] [facility] 00:[facility]: d 00 [place] No Known DA Active U 2020-1 [facility] Allergie 0-30 [facility] codeine DA Active AR 2019- [facility] 2-13 [facility] d [facility] codeine DA Active [place] rash 2019- [facility] 2-13 [facility]: d [facility] codeine DA Active [place] 2011- [facility] 0- [facility]: d [facility] codeine DA Active [place] rash 2011- [facility] 0-09 [facility] 00:[facility]: d 00 [facility] NO KNOWN Drug Active Univers ALLERGIE Class ity of [facility] Family History Family Member Diagnosis Comments Start Date Stop Date Source Maternal [facility] Cance r [place] Natural sister Lung cancer Universit y [facility] Social History Social Habit Start Date Stop Date Quantity Comments Source History of tobacco Current smoker Un iversity of use [place] MD Levi darden [facility] History SDOH University o f Alcohol Frequency [facility] History [facility] o f Alcohol Std Drinks [facility] o f Alcohol Binge [place] MD Marianela gustafson [facility] Alcohol intake 2021-10-25 2021-10-25 Ex-drinker University 00:00:00 00:00:00 (finding) [place] MD Levi darden [facility] Cigarettes smoked 2020-03-02 2020-03-02 Univers ity of current (pack per 00:00:00 00:00:00 [facility] ) - Reported Cancer Ce nter Tobacco use and 2020-03-02 2020-03-02 Smokeless Universit y of exposure 00:00:00 00:00:00 tobacco non-user [facility] History SDOH 2020-03-02 2020-03-02 .5 elizabeth of [place] of Alcohol Comment 00:00:00 00:00:00 vodka daily 15 [facility] years ago Cancer Center Sex Ass[birth year] Universit y of 00:00:00 00:00:00 [place] MD Levi darden [facility] Smoking Status Start Date Stop Date Source Ex-smoker 2020-03-02 00:00:00 2020-03-02 00:00:00 Universi ty of [facility] Medications Ordered Filled Start Stop Current Ordering Indication Dosage Frequency Signature Comments Components Source Medication Medication Date Date Medication? Clinician (SIG) Name Name QUEtiapine Yes Anxiety 25mg Take 1 Un yakov (SEROquel) 7-01 disorder tablet (25 ity of 25 mg 00:00: due to a mg) by [place] tablet 00 general mouth MD medical every 6 Anderso condition (six) n hours as Cancer needed for Center non-violen t agitation (anxiety sleep). QUEtiapine 2021- No Anxiety 25mg Take 1 U nivers (SEROquel) 6-04 07-01 disorder tablet (25 ity of 25 mg 00:00: 00:00 due to a mg) by [place] tablet 00 :00 general mouth MD medical every 6 Anderso condition (six) n hours as Cancer needed for Center non-violen t agitation (anxiety sleep). amoxicillin Yes Upper 875mg Take 1 Un yakov -clavulanat 5-17 respiratory tablet ity of e 00:00: infection, (875 mg) [place] as (Augmentin) 00 not by mouth MD 875 mg-125 otherwise twice And erso mg per specified daily. n tablet Cancer Center levoFLOXaci Yes Upper 500mg Take 1 Un yakov n 5-06 respiratory tablet ity of (Levaquin) 00:00: infection, (500 mg) [place] 500 mg 00 not by mouth MD tablet otherwise daily. [place] o specified n Cancer Center fluconazole 2021- No [place] 200mg Take 1 Univers (Diflucan) 10-25 05-03 esophagitis tablet ity of 200 mg 00:00: 04:59 (200 mg) [place] tablet 00 :00 by mouth MD daily for Anders[place] 4 days. n Cancer Center promethazin 0 2021- No 12.5mg Take 12.5 Univers e 10-24 04-27 mg by ity of (PHENERGAN) 18:27: 00:00 mouth [place] 12.5 mg 03 :00 every 6 MD tablet (six) [place] hours as n needed. Cancer Center aspirin 81 0 2021- No 81mg Take 81 mg Univers mg EC 10-24 04-27 by mouth ity of tablet 18:27: 00:00 [place] 03 :00 [place] Dill n [facility] Center atorvastati Yes 40mg Take 40 mg Univers n (LIPITOR) 4-27 by mouth ity of 40 mg 18:26: daily. [place] tablet 55 MD Fuentes zimmerman [facility] budesonide Yes severe .25mg Inhale Un yakov (PULMICORT) 10-24 chronic 0.25 mg by ity of 0.25 mg/2 18:26: obstructive nebulizati [place] mL 55 pulmonary on daily. MD nebulizer disease [place] solution n [facility] umeclidiniu Yes Inhale by U nivers m-vilantero 10-24 mouth. ity of L 62.5-25 18:26: [place] mcg/actuati 55 MD on dsdv [facility] megestrol Yes 400mg Give 400 Uni vers (MEGACE) 40 10-24 mg per ity of mg/mL 18:26: G-tube. [place] suspension 55 MD Fuentes zimmerman [facility] ipratropium Yes Pneumocysto 3mL Inhale 1 Univers -albuterol 10-24 sis vial (3 ity of (DUO-NEB) 00:00: pneumonia mL) by [place] 0.5 mg-2.5 00 nebulizati MD mg/3 mL on every 6 [place] o nebulizer (six) n solution hours as Cancer needed for Center wheezing or shortness of breath. aluminum-ma Yes Gastroesoph 15mL Take 15 mL Univers gnesium 10-24 ageal by mouth ity of hydroxide-s 00:00: reflux every 4 [place] imethicone 00 disease (four) (MAALOX hours as [place]o PLUS) 200 needed for n mg-200 indigestio Cancer mg-20 mg/5 n or Center mL heartburn. suspension guaiFENesin Yes Pneumonia 600mg Take 1 Univers (MUCINEX) 10-24 due to tablet ity of 600 mg 12 00:00: other (600 mg) [place] hr tablet 00 Gram-negati by mouth ve bacteria every 12 Prince rso (twelve) n hours. Cancer Center sucralfate Yes Gastroesoph 1000mg Take 10 mL Univers (CARAFATE) 10-24 ageal (1,000 mg) it y of 100 mg/mL 00:00: reflux by mouth 4 [place] suspension 00 disease (four) times a Anderso day before n meals and Cancer nightly. Center QUEtiapine Yes Adjustment 75mg Take 3 Univers (SEROquel) 4-27 disorder tablets it y of 25 mg 00:00: with mixed (75 mg) by [place] tablet 00 anxiety and mouth at MD depressed bedtime. [place] o mood n Cancer Center Ventolin Yes Pneumonia 1{puff} Inhale 1 Univers HFA 90 10-24 due to puff by ity of mcg/actuati 00:00: other mouth [place] on inhaler 00 Gram-negati every 6 MD ve bacteria (six) Anderso hours as n needed for Cancer wheezing Center or shortness of breath. amoxicillin 2021- No Upper 875mg Take 1 U nivers -clavulanat 10-11 respiratory tablet ity of e 00:00: 00:00 infection, (875 mg) [place] (Augmentin) 00 :00 not by mouth 875 mg-125 otherwise twice And erso mg per specified daily for n tablet 7 days. Cancer [place] amoxicillin 2021- No Decompensat 875mg Take 1 Univers -clavulanat 10-10 ed COPD tablet it y of e 00:00: 00:00 with acute (875 mg) [place] (Augmentin) 00 :00 exacerbatio by mouth 875 mg-125 n twice [place] mg per daily for n tablet 5 days. Cancer [place] acetaminoph Yes Neoplasm 1{tbl} Take 1 Univers en-codeine 3-11 related tablet by i ty of (TYLENOL 00:00: pain mouth [place] #3) 300 00 (acute) every 6 MD mg-30 mg (chronic) (six) Levi so tablet hours as n needed for Cancer mild pain Center or moderate pain (Marj Garza APN). QUEtiapine 2021- No Anxiety 25mg Take 1 U nivers (SEROquel) 3-11 06-04 disorder tablet (25 ity of 25 mg 00:00: 00:00 due to a mg) by [place] tablet 00 :00 general mouth medical every 6 Anderso condition (six) n hours as Cancer needed for Center non-violen t agitation. amoxicillin 2021- No Community 875mg Take 1 Univers -clavulanat 09-07 acquired tablet i ty of e 00:00: 04:59 pneumonia (875 mg) [place] (AUGMENTIN) 00 :00 by mouth 875 mg-125 every 12 [place] so mg per (twelve) n tablet hours for Cancer 3 days. [place] amoxicillin [facility] 875mg Take 1 Univers -clavulanat 09-07 acquired tablet i ty of e 00:00: 00:00 pneumonia (875 mg) [place] (AUGMENTIN) 00 :00 by mouth 875 mg-125 every 12 [place] so mg per (twelve) n tablet hours for Cancer 3 days. [place] amoxicillin [facility] 875mg Take 1 Univers -clavulanat 09-07 acquired tablet i ty of e 00:00: 00:00 pneumonia (875 mg) [place] (AUGMENTIN) 00 :00 by mouth 875 mg-125 every 12 [place] so mg per (twelve) n tablet hours for Cancer 3 days. [place] HYDROcodone 2021- No Adjustment 1{tbl} Take 1 Univers -acetaminop -15 09- disorder tablet by itsally of mike ([place]) 00:00: 00:00 with mixed mouth [place] 5 mg-325 mg 00 :00 anxiety and every 6 MD per tablet depressed (six) And erso mood hours as n needed for Cancer moderate Center pain for up to 30 days. QUEtiapine 2021- No Adjustment 75mg Take 3 Univers (SEROquel) 2-12 10-27 disorder tablets i ty of 25 mg 00:00: 00:00 with mixed (75 mg) by [place] tablet 00 :00 anxiety and mouth at MD depressed bedtime. [place] o mood n Cancer Center HYDROcodone 2021- No Adjustment 1{tbl} Take 1 Univers -acetaminop 2-15 - disorder tablet by ity of hen ([place]) 00:00: 00:00 with mixed mouth [place] 5 mg-325 mg 00 :00 anxiety and every 6 MD per tablet depressed (six) And erso mood hours as n needed for Cancer moderate Center pain for up to 30 days. 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) BY [place] tablet 00 upper lobe, MOUTH MD lung TWICE [place] <Right> DAILY n Cancer Center memantine 2021- No Small cell 5 mg a day Univers (Namenda) 2-11 carcinoma, x 1 week, ity of 10 mg 00:00: 00:00 NOS of [place] 5 mg [place] tablet 00 :00 upper lobe, twice MD lung daily x 1 [place] <Right> week, then n 10 mg Cancer every am Center and 5 mg every pm x 1 week, then 10 mg twice daily for 6 months pantoprazol Yes Aspiration TAKE 1 Univers e 07-27 into lower TABLET(40 ity of (PROTONIX) 00:00: respiratory MG) BY [place] 40 mg EC 00 tract MOUTH MD tablet DAILY Anderso [facility] QUEtiapine 2021- No Adjustment 75mg Take 3 Univers (SEROquel) 07-11 disorder tablets i ty of 25 mg 00:00: 00:00 with mixed (75 mg) by [place] tablet 00 :00 anxiety and mouth at MD depressed bedtime. [place] o mood [facility] pantoprazol 2021- No Aspiration 40mg Take 1 Univers e 07-11 into lower tablet (40 it y of (PROTONIX) 00:00: 00:00 respiratory mg) by [place] 40 mg EC 00 :00 tract mouth MD tablet daily. Anderso n [facility] OLANZapine 2021- No Insomnia, 2.5mg Take 1 Univers (ZyPREXA) 07-02 not tablet ity of 2.5 mg 00:00: 00:00 otherwise [place]2.5 mg) [place] tablet 00 :00 specified by mouth 2 MD (two) Anderso times a n day as Cancer needed for Center sleep or non-violen t agitation. amoxicillin 2020-06- No Upper 875mg Take 1 U nivers -clavulanat 08-14 respiratory tablet ity of e 00:00: 00:00 [place] (875 mg[place] (Augmentin) 00 :00 not by mouth MD 875 mg-125 otherwise twice And erso mg per specified daily. n tablet Cancer [place] acetaminoph 2020-06- No Chronic 1{tbl} Take 1 Univers en-codeine -15 pain due to tablet by ity of (TYLENOL 00:00: 00:00 malignant mouth [place] #3) 300 00 :00 neoplastic every 4 MD mg-30 mg disease (four) Bakari o tablet hours as n needed Cancer (pain). Center amoxicillin 2020-06- No Upper 875mg Take 1 U nivers -clavulanat 08-12 respiratory tablet ity of e 00:00: 00:00 infection, (875 mg) [place] (Augmentin) 00 :00 not by mouth MD 875 mg-125 otherwise twice And erso mg per specified daily. n tablet Cancer Center baclofen 2020-06 Yes Muscle 10mg Take 1 Unive rs (LIORESAL) 1-18 spasm of tablet (10 ity of 10 mg 00:00: back mg) by [place] tablet 00 mouth MD every 12 Anderso (twelve) n hours as Cancer needed for Center muscle spasms. OLANZapine 2020-06- No Insomnia, 2.5mg Take 1 Univers (ZyPREXA) 0-29 01-03 not tablet ity of 2.5 mg 00:00: 00:00 otherwise (2.5 mg) [place] tablet 00 :00 specified by mouth 2 MD (two) Anderso times a n day as Cancer needed for Center sleep or non-violen t agitation. baclofen 2020-06- No Muscle Take 1/2 Un yakov (LIORESAL) 0-27 11-18 spasm of tablet (5 ity of 10 mg 00:00: 00:00 back mg) PO q12 [place] tablet 00 :00 PRN back MD spasm. Anderso n [facility] OLANZapine 2020-06- No Adjustment 2.5mg Take 1 Univers (ZyPREXA) 0-27 - disorder tablet ity of 2.5 mg 00:00: 00:00 with (2.5 mg) [place] tablet 00 :00 anxiety by mouth MD every 6 Anderso (six) n hours as Cancer needed for Center anxiety, sleep or non-violen t agitation. 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 n tablet Cancer [place] pantoprazol 2021- No Aspiration 40mg Take 1 Univers e 03-29 into lower tablet (40 it y of (PROTONIX) 00:00: 00:00 respiratory mg) by [place] 40 mg EC 00 :00 tract mouth tablet daily. [facility] baclofen 2020- No Muscle Take 1/2 Un yakov (LIORESAL) 03-29 10 spasm of tablet (5 ity of 10 mg 00:00: 00:00 back mg) PO q12 [place] tablet 00 :00 PRN back spasm. 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 Center OLANZapine 2020- No Adjustment 2.5mg Take 1 Univers (ZyPREXA) 03-27 disorder tablet ity of 2.5 mg 00:00: 00:00 with (2.5 mg) [place] tablet 00 :00 anxiety by mouth MD every 6 Anderso (six) n hours as Cancer needed for Center anxiety, sleep or non-violen t agitation. amoxicillin 2020- No Upper 875mg Take 1 U nivers -clavulanat 03-27 respiratory tablet ity of e 00:00: 00:00 infection, (875 mg) [place] (Augmentin) 00 :00 not by mouth MD 875 mg-125 otherwise twice And erso mg per specified daily. n tablet Cancer Center baclofen 2020- No Muscle Take 1/2 Un yakov (LIORESAL) 03-08 spasm of tablet (5 ity of 10 mg 00:00: 00:00 back mg) PO q12 [place] tablet 00 :00 PRN back MD spasm. [facility] baclofen 5 2020- No Muscle 5mg Take 5 mg Univers mg tab 03-08 spasm of by mouth ity of 00:00: 00:00 back every 12 [place] 00 :00 (twelve) [facility]- No Aspiration 75mg 3 tablets Univers (SEROquel) 03-07 into lower (75 mg) by ity of 25 mg 00:00: 00:00 respiratory feeding [place] tablet 00 :[facility] QUEtiapine 2020- No Aspiration 75mg 3 tablets Univers (SEROquel) 03-06 into lower (75 mg) by ity of 25 mg 00:00: 00:00 respiratory feeding [place] tablet 00 :[facility] [place] fluconazole 2020- No Acute 100mg Take 1 U nivers (DIFLUCAN) 03-03 kidney tablet ity of 100 mg 00:00: 04:59 injury due (100 mg) [place] tablet 00 :00 to by mouth MD hypovolemia daily for And erso 12 days. n Cancer Center lidocaine 2021- No Acute 10mL Swish and U nivers (XYLOCAINE) 03-02 kidney swallow 10 ity of 20 mg/mL 00:00: 00:00 injury due mL every 8 [place] (2%) 00 :00 to (eight) MD viscous hypovolemia hours as A nderso solution needed n (throat Cancer pain) for Center up to 30 doses. ondansetron 2021- No Small cell 8mg Take 1 Univers (ZOFRAN) 8 03-02 carcinoma tablet (8 ity of mg tablet 00:00: 00:00 of upper mg) by [place] 00 :00 lobe of mouth right lung every 8 Bakari o (eight) n hours as Cancer needed for Center nausea or vomiting. memantine 2020- No Small cell 10mg Take 1 Univers (Namenda) 03-02 carcinoma tablet (10 ity of 10 mg 00:00: 00:00 of upper mg) by [place] tablet 00 :00 lobe of mouth MD right lung twice Anderso daily. n Cancer Center baclofen 5 2020- No Muscle 5mg Take 5 mg Univers mg tab 03-02 spasm of by mouth ity of 00:00: 00:00 back every 12 [place] 00 :00 (twelve) MD hours. Andmiguel n [facility] pantoprazol 2020- No Aspiration 40mg Take 1 Univers e 02-28 into lower tablet (40 it y of (PROTONIX) 00:00: 00:00 respiratory mg) by [place] 40 mg EC 00 :00 tract mouth MD tablet daily. Andmiguel n Cancer Center loperamide Yes Aspiration 2mg Take 1 Univers (IMODIUM) 2 02-27 into lower capsule (2 ity of mg capsule 00:00: respiratory mg) by [place] 00 tract mouth MD every 8 Anderso (eight) n hours as Cancer needed for Center diarrhea. Buy over the counter senna 2021- No Aspiration 2{tbl} Take 2 U nivers (SENOKOT) 8-31 05-17 into lower tablets by ity of 8.6 mg 00:00: 00:00 respiratory mouth 2 [place] tablet 00 :00 tract (two) MD times a Anderso day as n needed for Cancer constipati Center on. Buy over the counter oral 2021- No Aspiration 1{appli Apply 1 Univers mucosal 02-27 into lower cation} applicatio ity of (BIOTENE) 00:00: 00:00 respiratory n to the [place] gel 00 :00 tract mouth or MD throat as Anderso needed for n dry mouth. Cancer Buy over Center the counter. use as directed enoxaparin 2021- No Other 50mg Inject 0.5 Univers (Lovenox) 02-27 pulmonary mL (50 mg) ity of 60 mg/0.6 00:00: 00:00 embolism under the [place] mL 00 :00 with acute skin every MD prefilled cor 12 Anderso syringe pulmonale (twelve) n hours. Cancer Center wound 2021- No Aspiration Apply Univ ers dressings 02-27 into lower topically ity of (TRIAD 00:00: 00:00 respiratory to [place] as HYDROPHILIC 00 :00 tract affected MD ) pste area(s) as Anderso topical needed n paste (wound Cancer care/ Center buttocks). OLANZapine 2020- No Adjustment 2.5mg Take 1 Univers (ZyPREXA) 02-27 disorder tablet ity of 2.5 mg 00:00: 00:00 with (2.5 mg) [place] tablet 00 :00 anxiety by mouth MD every 6 Anderso (six) n hours as Cancer needed for Center anxiety, sleep or non-violen t agitation. 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 Center multivitami Yes Aspiration 1{tbl} Take 1 Univers n tab 7-23 into lower tablet by ity of tablet 00:00: respiratory mouth [place] as 00 tract daily. MD [facility] ferrous 2021- No 1{tbl} Take 1 Unive rs sulfate 325 01-18 05-17 tablet by it y of (65 FE) MG 00:00: 00:00 mouth [place] EC tablet 00 :00 daily. 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 Cancer Center ipratropium 2021- No Pneumocysto USE 1 VIAL [facility] -albuterol 11-30 0427 sis VIA ity of (DUO-NEB) 00:00: 00:00 pneumonia NEBULIZER [place] 0.5 mg-2.5 00 :00 EVERY 6 MD mg/3 mL HOURS Anderso nebulizer NEEDED FOR n solution WHEEZING Cancer OR Center SHORTNESS OF BREATH FOR UP TO 30 DAYS nut.tx.impa 2021- No Tube 250mL Give 250 Univers ired 11-17 03-11 feeding mL per ity of digestive 00:00: 00:00 diet G-tube 3 [place] as fxn 00 :00 (three) (peptamen times a Anderso 1.5) day. n enteral Cancer tube Center feeding guaiFENesin 2021- No Emphysema 600mg Take 1 Univers (MUCINEX) 10-08 04-12 tablet ity of 600 mg 12 00:00: 04:59 (600 mg) [place] as hr tablet 00 :00 by mouth every 12 Anderso (twelve) n hours. Cancer Center lancets Yes Type 2 1{each} 1 each by [facility] mis 10-06 diabetes miscellane ity o f 00:00: mellitus ous route [place] 00 with twice hyperglycem daily. Bakari [facility] Immunizations Ordered Filled Immunization Date Status Comments [facility] e Immunization Name Name remdesivir 2020-08-22 Completed University 00:00:00 [facility] remdesivir 2020-08-22 Completed University of 00:00:00 Willis Sims son [facility] remdesivir 2020-08-21 Completed University of 00:00:00 [place] [facility] remdesivir 2020-08-20 Completed University of 00:00:00 [place] Levi darden [facility] remdesivir 2020-08-19 Completed University of 00:00:00 [place] Levi darden [facility] remdesivir 2020-08-18 Completed University of 00:00:00 [place] Levi darden [facility] remdesivir 2020-08-03 Completed University of 00:00:00 [place] Levi darden [facility] remdesivir 2020-08-02 Completed University of 00:00:00 [place] Levi [facility] remdesivir 2020-08-02 Completed University of 00:00:00 [place] Levi darden [facility]01 Completed University of 00:00:00 [place] Levi darden [facility] remdesivir 2020-07-31 Completed University of 00:00:00 [place] Levi darden [facility] remdesivir 2020-07-30 Completed University of 00:00:00 [place] MD Leeser [facility] Influenza Split 2020-03-29 Completed Universit y of High Dose 00:00:00 [place] MD Leesty darden [facility] IM Zoster Recombinant 2020-03-29 Completed Univer sity of 00:00:00 [place] MD Sims [facility] Vital Signs Vital Name Observation Time Observation Value Comments Source WEIGHT 2020-04-21 12:35:00 49.6 kg HEIGHT 2020-03-31 09:15:13 162 cm WEIGHT 2020-03-31 09:15:13 49 kg HEIGHT 2020-03-02 10:27:01 162 cm WEIGHT 2020-03-02 10:27:01 46.8 kg Heart rate 2021-10-24 21:41:00 74 /min Universi ty of [facility] Respiratory rate 2021-10-24 21:41:00 18 /min Univ ersity of [facility] Systolic blood 2021-10-24 17:30:00 119 mm[Hg] Univer sity of pressure [facility] Diastolic blood 2021-10-24 17:30:00 78 mm[Hg] Unive rsity of pressure [facility] Oxygen saturation in 2021-10-24 17:30:00 96 /min [facility] Arterial blood by [facility] Pulse oximetry Cancer Center Body temperature 2021-10-24 16:48:00 36.89 Lizabeth [facility] MD [facility] Body weight 2021-10-24 09:00:00 55 kg [facility] MD [facility] BMI 2021-10-24 09:00:00 19.57 kg/m2 [facility] MD [facility] Body height 2021-10-15 14:57:00 167.6 cm [facility] MD [facility] Center Procedures Procedure Date / Time Performing Clinician Source Performed COMPLETE BLOOD COUNT W/ 2021-10-24 10:53:00 Tod Glass V. [facility] DIFFERENTIAL [facility] COMPREHENSIVE METABOLIC 2021-10-24 10:53:00 Tod Glass V. [facility] PANEL [facility] MAGNESIUM LEVEL 2021-10-24 10:53:00 Tod Glass V. [facility] PHOSPHORUS LEVEL 2021-10-24 10:53:00 Tod Glass V. [facility] Results CBC 2021-10-24 10:53:00 Tod Glass V. [facility] MANUAL DIFFERENTIAL 2021-10-24 10:53:00 Tod Glass V. [facility] GLUCOSE LEVEL 2021-10-24 10:53:00 Tod Glass V. [facility] BLOOD UREA NITROGEN 2021-10-24 10:53:00 Tod Glass V. [facility] ELECTROLYTE PANEL 2021-10-24 10:53:00 Tod Glass V. [facility] SERUM CREATININE 2021-10-24 10:53:00 Tod Glass V. [facility] .GLOMERULAR FILTRATION 2021-10-24 10:53:00 [facility] CALCIUM LEVEL TOTAL 2021-10-24 10:53:00 Tod Glass V. [facility] ALBUMIN LEVEL 2021-10-24 10:53:00 Tod Glass V. [facility] ALKALINE PHOSPHATASE 2021-10-24 10:53:00 Tod Glass V. [facility] ALANINE AMINOTRANSFERASE 2021-10-24 10:53:00 Tod [facility] ASPARTATE AMINOTRANSFERASE 2021-10-24 10:53:00 Tod Glass [facility] TOTAL PROTEIN 2021-10-24 10:53:00 Tod Glass V. [facility] FRACTIONATED BILIRUBIN 2021-10-24 10:53:00 Tod Glass [facility]. [facility] OSCILLAT[facility] PEP 2021-10-23 13:00:13 Tod Glass V. [facility] COMPLETE BLOOD COUNT W/ 2021-10-23 12:28:00 Tod Glass V. [facility] DIFFERENTIAL [facility] COMPREHENSIVE METABOLIC 2021-10-23 12:28:00 Tod Glass V. [facility] PANEL [facility] MAGNESIUM LEVEL 2021-10-23 12:28:00 Tod Glass V. [facility] PHOSPHORUS LEVEL 2021-10-23 12:28:00 Tod Glass V. [facility] Results CBC 2021-10-23 12:28:00 Tod Glass V. [facility] MANUAL DIFFERENTIAL 2021-10-23 12:28:00 Tod Glass V. [facility] GLUCOSE LEVEL 2021-10-23 12:28:00 Tod Glass V. [facility] BLOOD UREA NITROGEN 2021-10-23 12:28:00 Tod Glass V. [facility] ELECTROLYTE PANEL 2021-10-23 12:28:00 Tod Glass V. [facility] SERUM CREATININE 2021-10-23 12:28:00 Tod Glass V. [facility] .GLOMERULAR FILTRATION 2021-10-23 12:28:00 [facility] Glass [facility] RATE [facility] CALCIUM LEVEL TOTAL 2021-10-23 12:28:00 [facility] ALBUMIN LEVEL 2021-10-23 12:28:00 Tod Glass V. [facility] ALKALINE PHOSPHATASE 2021-10-23 12:28:00 Tod Glass V. [facility] ALANINE AMINOTRANSFERASE 2021-10-23 12:28:00 Tdo Glass V. [facility] ASPARTATE AMINOTRANSFERASE 2021-10-23 12:28:00 Tod Glass [facility] TOTAL PROTEIN 2021-10-23 12:28:00 Tod Glass V. [facility] FRACTIONATED BILIRUBIN 2021-10-23 12:28:00 Tod Glass V. [facility] OSCILLATORY PEP 2021-10-22 19:00:57 Tod Glass V. [facility] OSCILLATORY PEP 2021-10-22 13:00:14 Tod Glass V. [facility] COMPLETE BLOOD COUNT W/ 2021-10-22 11:48:00 Tod Glass V. [facility] DIFFERENTIAL [facility] COMPREHENSIVE METABOLIC 2021-10-22 11:48:00 Tod Glass V. [facility] PANEL [facility] MAGNESIUM LEVEL 2021-10-22 11:48:00 Tod Glass V. [facility] PHOSPHORUS LEVEL 2021-10-22 11:48:00 Tod Glass V. [facility] IGG SUBCLASSES, SERUM 2021-10-22 11:48:00 Tod Glass [facility] IMMUNOGLOBULIN G SERUM 2021-10-22 11:48:00 Tod Glass [facility] IMMUNOGLOBULIN A SERUM 2021-10-22 11:48:00 Tod Glass [facility] Results CBC 2021-10-22 11:48:00 Tod Glass V. [facility] MANUAL DIFFERENTIAL 2021-10-22 11:48:00 Tod Glass V. [facility] GLUCOSE LEVEL 2021-10-22 11:48:00 Tod Glass V. [facility] BLOOD UREA NITROGEN 2021-10-22 11:48:00 Tod Glass V. [facility] ELECTROLYTE PANEL 2021-10-22 11:48:00 Tod Glass V. [facility] SERUM CREATININE 2021-10-22 11:48:00 Tod Glass V. [facility] .GLOMERULAR FILTRATION 2021-10-22 11:48:00 Tod Glass [facility] CALCIUM LEVEL TOTAL 2021-10-22 11:48:00 Tod Glass V. [facility] ALBUMIN LEVEL 2021-10-22 11:48:00 Tod Glass V. [facility] ALKALINE PHOSPHATASE 2021-10-22 11:48:00 Tod Glass V. [facility] ALANINE AMINOTRANSFERASE 2021-10-22 11:48:00 Tod Glass V. Uni [facility] ASPARTATE AMINOTRANSFERASE 2021-10-22 11:48:00 [facility] T[facility] PROTEIN 2021-10-22 11:48:00 Tod Glass V. [facility] FRACTIONATED BILIRUBIN 2021-10-22 11:48:00 Tod Glass [facility] OSCILLATORY PEP 2021-10-22 01:00:11 Tod Glass V. [facility] XR CHEST 1 VW 2021-10-21 20:44:00 Tod Glass V. [facility] BLOODCULTURE 2021-10-21 14:09:00 Tod Glass V. [facility] FUNGAL BLOODCULTURE 2021-10-21 14:09:00 Tod Glass V. [facility] COMPLETE BLOOD COUNT W/ 2021-10-21 11:02:00 Tod Glass [facility] DIFFERENTIAL [facility] COMPREHENSIVE METABOLIC 2021-10-21 11:02:00 Tod Glass [facility] PANEL [facility] MAGNESIUM LEVEL 2021-10-21 11:02:00 Tod Glass V. [facility] PHOSPHORUS LEVEL 2021-10-21 11:02:00 Tod Glass V. [facility] Results CBC 2021-10-21 11:02:00 Tod Glass V. [facility] MANUAL DIFFERENTIAL 2021-10-21 11:02:00 Tod Glass V. [facility] GLUCOSE LEVEL 2021-10-21 11:02:00 Tod Glass V. [facility] BLOOD UREA NITROGEN 2021-10-21 11:02:00 Tod Glass V. [facility] ELECTROLYTE PANEL 2021-10-21 11:02:00 Tod Glass V. [facility] SERUM CREATININE 2021-10-21 11:02:00 Tod Glass V. [facility] .GLOMERULAR FILTRATION 2021-10-21 11:02:00 Tod Glass [facility] RATE [facility] CALCIUM LEVEL TOTAL 2021-10-21 11:02:00 Tod Glass V. [facility] ALBUMIN LEVEL 2021-10-21 11:02:00 Tod Glass V. [facility] ALKALINE PHOSPHATASE 2021-10-21 11:02:00 Tod Glass V. [facility] ALANINE AMINOTRANSFERASE 2021-10-21 11:02:00 Tod Glass V. [facility] ASPARTATE AMINOTRANSFERASE 2021-10-21 11:02:00 Tod [facility] TOTAL PROTEIN 2021-10-21 11:02:00 Tod Glass V. [facility] FRACTIONATED BILIRUBIN 2021-10-21 11:02:00 Tod Glass V. [facility] EKG, 12-LEAD (PORTABLE) 2021-10-21 00:00:00 Tod Glass V. [facility] XR ABDOMEN 1 VW PORTABLE 2021-10-20 19:19:00 Tod Glass V. [facility] OSCILLATORY PEP 2021-10-20 19:00:49 Tod Glass V. [facility] OSCILLATORY PEP 2021-10-20 13:00:11 Tod Glass V. [facility] COMPLETE BLOOD COUNT W/ 2021-10-20 11:10:00 Tod Glass V. [facility] DIFFERENTIAL [facility] COMPREHENSIVE METABOLIC 2021-10-20 11:10:00 Tod Glass V. [facility] PANEL [facility] MAGNESIUM LEVEL 2021-10-20 11:10:00 Tod Glass V. [facility] PHOSPHORUS LEVEL 2021-10-20 11:10:00 Tod Glass V. [facility] Results CBC 2021-10-20 11:10:00 Tod Glass V. [facility] MANUAL DIFFERENTIAL 2021-10-20 11:10:00 Tod Glass V. [facility] GLUCOSE LEVEL 2021-10-20 11:10:00 Tod Glass V. [facility] BLOOD UREA NITROGEN 2021-10-20 11:10:00 Tod Glass V. [facility] ELECTROLYTE PANEL 2021-10-20 11:10:00 Tod Glass V. [facility] SERUM CREATININE 2021-10-20 11:10:00 Tod Glass V. [facility] .GLOMERULAR FILTRATION 2021-10-20 11:10:00 Tod Glass [facility] CALCIUM LEVEL TOTAL 2021-10-20 11:10:00 Tod Glass V. [facility] ALBUMIN LEVEL 2021-10-20 11:10:00 Tod Glass V. [facility] ALKALINE PHOSPHATASE 2021-10-20 11:10:00 Tod Glass V. [facility] ALANINE AMINOTRANSFERASE 2021-10-20 11:10:00 Tod Glass [facility]. [facility] ASPARTATE AMINOTRANSFERASE 2021-10-20 11:10:00 Tod [facility] TOTAL PROTEIN 2021-10-20 11:10:00 Tod Glass V. [facility] FRACTIONATED BILIRUBIN 2021-10-20 11:10:00 Tod Glass [facility] OSCILLATORY PEP 2021-10-20 01:00:09 Tod Glass V. [facility] OSCILLATORY PEP 2021-10-19 19:00:53 Tod Glass V. [facility] PATHOLOGY BIOPSY 2021-10-19 18:35:00 Edwige Rod [facility] INTERPRETATION [facility] UPPER GASTROINTESTINAL 2021-10-19 18:14:00 [facility], MD [facility] STOMACH, AND DUODENUM WITH Cente r BIOPSY OSCILLATORY PEP 2021-10-19 14:01:42 Tod Glass V. [facility] COMPLETE BLOOD COUNT W/ 2021-10-19 12:18:00 Tod Glass V. [facility] DIFFERENTIAL [facility] COMPREHENSIVE METABOLIC 2021-10-19 12:18:00 Tod Glass V. [facility] PANEL [facility] MAGNESIUM LEVEL 2021-10-19 12:18:00 Tod Glass V. [facility] PHOSPHORUS LEVEL 2021-10-19 12:18:00 Tod Glass V. [facility] Results CBC 2021-10-19 12:18:00 Tod Glass V. [facility] MANUAL DIFFERENTIAL 2021-10-19 12:18:00 Tod Glass V. [facility] GLUCOSE LEVEL 2021-10-19 12:18:00 Tod Glass V. [facility] BLOOD UREA NITROGEN 2021-10-19 12:18:00 Tod Glass V. [facility] ELECTROLYTE PANEL 2021-10-19 12:18:00 Tod Glass V. [facility] SERUM CREATININE 2021-10-19 12:18:00 Tod Glass V. [facility] .GLOMERULAR FILTRATION 2021-10-19 12:18:00 Tod Glass V. [facility] RATE [facility] CALCIUM LEVEL TOTAL 2021-10-19 12:18:00 Tod Glass V. [facility] ALBUMIN LEVEL 2021-10-19 12:18:00 Tod Glass V. [facility] ALKALINE PHOSPHATASE 2021-10-19 12:18:00 Tod Glass V. [facility] ALANINE AMINOTRANSFERASE 2021-10-19 12:18:00 Tod Glass V. [facility] ASPARTATE AMINOTRANSFERASE 2021-10-19 12:18:00 Tod Glass V. [facility] TOTAL PROTEIN 2021-10-19 12:18:00 Tod Glass V. [facility] FRACTIONATED BILIRUBIN 2021-10-19 12:18:00 Tod Glass V. [facility] XR CHEST 1 VW 2021-10-18 21:15:00 Tod Glass V. [facility] POC GLUCOSE SCREEN 2021-10-18 11:47:00 Tod Glass V. [facility] COMPLETE BLOOD COUNT W/ 2021-10-18 09:25:00 Tod Glass V. [facility] DIFFERENTIAL [facility] COMPREHENSIVE METABOLIC 2021-10-18 09:25:00 Tod Glass V. [facility] PANEL [facility] MAGNESIUM LEVEL 2021-10-18 09:25:00 Tod Glass V. [facility] PHOSPHORUS LEVEL 2021-10-18 09:25:00 Tod Glass V. [facility] Results CBC 2021-10-18 09:25:00 Tod Glass V. [facility] MANUAL DIFFERENTIAL 2021-10-18 09:25:00 Tod Glass V. [facility] GLUCOSE LEVEL 2021-10-18 09:25:00 Tod Glass V. [facility] BLOOD UREA NITROGEN 2021-10-18 09:25:00 Tod Glass V. [facility] ELECTROLYTE PANEL 2021-10-18 09:25:00 Tod Glass V. [facility] SERUM CREATININE 2021-10-18 09:25:00 Tod Glass V. [facility] .GLOMERULAR FILTRATION 2021-10-18 09:25:00 Tod Glass [facility] RATE [facility] CALCIUM LEVEL TOTAL 2021-10-18 09:25:00 Tod Glass V. [facility] ALBUMIN LEVEL 2021-10-18 09:25:00 Tod Glass V. [facility] ALKALINE PHOSPHATASE 2021-10-18 09:25:00 Tod Glass V. Univers ity [facility] ALANINE AMINOTRANSFERASE 2021-10-18 09:25:00 Tod Glass [facility]. [facility] ASPARTATE AMINOTRANSFERASE 2021-10-18 09:25:00 Tod Glass V. [facility] TOTAL PROTEIN 2021-10-18 09:25:00 Tod Glass V. [facility] FRACTIONATED BILIRUBIN 2021-10-18 09:25:00 [facility] Glass V. [facility] OSCILLATORY PEP 2021-10-18 07:00:10 Tod Glass V. [facility] OSCILLATORY PEP 2021-10-18 01:00:07 Tod Glass V. [facility] OSCILLATORY PEP 2021-10-17 19:01:02 Tod Glass V. [facility] VANCOMYCIN LEVEL TROUGH 2021-10-17 16:50:00 Tod Glass V. [facility] OSCILLATORY PEP 2021-10-17 14:31:30 Tod Glass V. [facility] FUNGITELL, SERUM 2021-10-17 08:59:00 Tod Glass V. [facility] COMPLETE BLOOD COUNT W/ 2021-10-17 08:59:00 Tod Glass V. [facility] DIFFERENTIAL [facility] COMPREHENSIVE METABOLIC 2021-10-17 08:59:00 Tod Glass V. [facility] PANEL [facility] MAGNESIUM LEVEL 2021-10-17 08:59:00 Tod Glass V. [facility] PHOSPHORUS LEVEL 2021-10-17 08:59:00 Tod Glass V. [facility] Results CBC 2021-10-17 08:59:00 Tod Glass V. [facility] MANUAL DIFFERENTIAL 2021-10-17 08:59:00 Tod Glass V. [facility] GLUCOSE LEVEL 2021-10-17 08:59:00 Tod Glass V. [facility] BLOOD UREA NITROGEN 2021-10-17 08:59:00 Tod Glass V. [facility] ELECTROLYTE PANEL 2021-10-17 08:59:00 Tod Glass V. [facility] SERUM CREATININE 2021-10-17 08:59:00 Tod Glass V. [facility] .GLOMERULAR FILTRATION 2021-10-17 08:59:00 Tod Glass [facility] CALCIUM LEVEL TOTAL 2021-10-17 08:59:00 Tod Glass V. [facility] ALBUMIN LEVEL 2021-10-17 08:59:00 Tod Glass V. [facility] ALKALINE PHOSPHATASE 2021-10-17 08:59:00 Tod Glass V. [facility] ALANINE AMINOTRANSFERASE 2021-10-17 08:59:00 Tod Glass [facility]. [facility] ASPARTATE AMINOTRANSFERASE 2021-10-17 08:59:00 Tod Glass V. [facility] TOTAL PROTEIN 2021-10-17 08:59:00 Tod Glass V. [facility] FRACTIONATED BILIRUBIN 2021-10-17 08:59:00 Tod Glass [facility] PROCALCITONIN 2021-10-17 08:59:00 Tod Glass V. [place] [facility] [place] MODIFIED BARIUM SWALLOW 2021-10-16 19:57:25 [facility]. [facility] [place] SPEECH [facility] RESPIRATORY VIRAL PANEL, 2021-10-16 13:05:00 Tod [facility]. 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 [facility] [place] SWAB [facility] RESPIRATORY PCR PANEL PATH 2021-10-16 13:05:00 [facility] MRSA SCREENING CULTURE 2021-10-15 21:25:00 Bea Kim [facility] TROPONIN T 2021-10-15 18:15:00 Bijan [facility] CT CHEST PULMONARY 2021-10-15 17:58:06 Verónica Thakkar [facility] EMBOLISM CONTRAST [facility] LEGIONELLA URINE ANTIGEN 2021-10-15 17:17:00 Verónica Thakkar [facility] STREPTOCOCCUS PNEUMONIAE 2021-10-15 17:17:00 Bijan Vernóica [facility] URINE ANTIGEN [facility] STREPTOCOCCAL URINE 2021-10-15 17:17:00 Verónica Thakkar [facility] ANTIGEN PATH REVIEW [facility] LEGIONELLA URINE ANTIGEN 2021-10-15 17:17:00 Verónica Thakkar [facility] FUNGITELL, SERUM 2021-10-15 16:43:00 Bijan [facility] COVID-19 (SARS-COV-2) 2021-10-15 15:08:00 Verónica Thakkar [facility] ASYMPTOMATIC-LT [facility] BLOODCULTURE 2021-10-15 15:08:00 Bijan [facility] LOWER RESPIRATORY CULTURE 2021-10-15 15:08:00 Verónica [facility]akkar [facility] W/ GRAM STAIN [facility] COMPREHENSIVE METABOLIC 2021-10-15 15:08:00 Bijan [facility] PANEL [facility] MAGNESIUM LEVEL 2021-10-15 15:08:00 Bijan [facility] PHOSPHORUS LEVEL 2021-10-15 15:08:00 Bijan [facility] LACTATE DEHYDROGENASE 2021-10-15 15:08:00 Bijan [facility] PROCALCITONIN 2021-10-15 15:08:00 Bijan [facility] TROPONIN T 2021-10-15 15:08:00 Bijan [facility] CREATINE KINASE 2021-10-15 15:08:00 Bijan [facility] CKMB 2021-10-15 15:08:00 Bijan [facility] NT PRO BNP 2021-10-15 15:08:00 Bijan [facility] COMPLETE BLOOD COUNT W/ 2021-10-15 15:08:00 Bijan [facility] DIFFERENTIAL [facility] PROTHROMBIN TIME 2021-10-15 15:08:00 Bijan [facility] APTT 2021-10-15 15:08:00 Bijan [facility] GLUCOSE LEVEL 2021-10-15 15:08:00 Bijan [facility] BLOOD UREA NITROGEN 2021-10-15 15:08:00 Bijan [facility] ELECTROLYTE PANEL 2021-10-15 15:08:00 Bijan [facility] SERUM CREATININE 2021-10-15 15:08:00 Bijan [facility] .GLOMERULAR FILTRATION 2021-10-15 15:08:00 Verónica Thakkar [facility] RATE [facility] CALCIUM LEVEL TOTAL 2021-10-15 15:08:00 Verónica Thakkar [facility] ALBUMIN LEVEL 2021-10-15 15:08:00 Bijan Verónica [facility] ALKALINE PHOSPHATASE 2021-10-15 15:08:00 Verónica Thakkar [facility] ALANINE AMINOTRANSFERASE 2021-10-15 15:08:00 Verónica Thakkar [facility] ASPARTATE AMINOTRANSFERASE 2021-10-15 15:08:00 Verónica Thakkar [facility] TOTAL PROTEIN 2021-10-15 15:08:00 Bijan [facility] FRACTIONATED BILIRUBIN 2021-10-15 15:08:00 Verónica Thakkar [facility] Results CBC 2021-10-15 15:08:00 Bijan [facility] MANUAL DIFFERENTIAL 2021-10-15 15:08:00 Bijan Verónica [facility] XR CHEST 1 VW 2021-10-15 14:45:00 Bijan [facility] EKG, 12-LEAD (PORTABLE) 2021-10-15 00:00:00 [facility]PLETE BLOOD COUNT W/ 2021-09-05 11:48:00 Inez Lagunas [facility] DIFFERENTIAL [facility] COMPREHENSIVE METABOLIC 2021-09-05 11:48:00 Bebo [facility] PANEL [facility] MAGNESIUM LEVEL 2021-09-05 11:48:00 Bebo [facility] PHOSPHORUS LEVEL 2021-09-05 11:48:00 Bebo [facility] Results CBC 2021-09-05 11:48:00 Bebo [facility] MANUAL DIFFERENTIAL 2021-09-05 11:48:00 Bebo [facility] Universi ty [facility] GLUCOSE LEVEL 2021-09-05 11:48:00 Bebo [facility] o [facility] BLOOD UREA NITROGEN 2021-09-05 11:48:00 Bebo [facility] ELECTROLYTE PANEL 2021-09-05 11:48:00 Bebo [facility] SERUM CREATININE 2021-09-05 11:48:00 Bebo [facility] .GLOMERULAR FILTRATION 2021-09-05 11:48:00 Inez [facility]unas [facility] CALCIUM LEVEL TOTAL 2021-09-05 11:48:00 Bebo [facility] ALBUMIN LEVEL 2021-09-05 11:48:00 Bebo [facility] ALKALINE PHOSPHATASE 2021-09-05 11:48:00 Bebo [facility] Univers [facility]y [facility] ALANINE AMINOTRANSFERASE 2021-09-05 11:48:00 Bebo [facility] Uni vers[facility] ASPARTATE AMINOTRANSFERASE 2021-09-05 11:48:00 Inez Lagunas [facility] TOTAL PROTEIN 2021-09-05 11:48:00 Inez Lagunas [place] [facility] FRACTIONATED BILIRUBIN 2021-09-05 11:48:00 Inez Lagunas Unive rs[facility] STREPTOCOCCUS PNEUMONIAE 2021-09-04 19:38:00 Bebo [facility] [place] URINE ANTIGEN [facility] LEGIONELLA URINE ANTIGEN 2021-09-04 19:38:00 Bebo Mini Uni [facility] LEGIONELLA URINE ANTIGEN 2021-09-04 19:38:00 Bebo [facility] [place] PATH REVIEW [facility] STREPTOCOCCAL URINE 2021-09-04 19:38:00 Inez Lagunas [facility] [place] ANTIGEN PATH REVIEW [facility] LOWER RESPIRATORY CULTURE 2021-09-04 19:36:00 Inez Lagunas [facility] W/ GRAM STAIN [facility] SERUM CREATININE 2021-09-04 09:51:00 Bijan [facility] .GLOMERULAR FILTRATION 2021-09-04 09:51:00 Verónica Thakkar [facility] RATE [facility] CALCIUM LEVEL TOTAL 2021-09-04 09:51:00 Bijan [facility] BASIC METABOLIC PANEL, 2021-09-04 09:51:00 Verónica Thakkar [facility] CALCIUM TOTAL [facility] MAGNESIUM LEVEL 2021-09-04 09:51:00 Bijan [facility] PHOSPHORUS LEVEL 2021-09-04 09:51:00 Bijan [facility] TROPONIN T 2021-09-04 09:51:00 Aisha [facility] GLUCOSE LEVEL 2021-09-04 09:51:00 Bijan [facility] BLOOD UREA NITROGEN 2021-09-04 09:51:00 Bijan [facility] ELECTROLYTE PANEL 2021-09-04 09:51:00 Bijan [facility] TROPONIN T 2021-09-04 03:49:00 Bijan [facility] CREATINE KINASE 2021-09-04 03:49:00 Bijan [facility] CKMB 2021-09-04 03:49:00 Bijan [facility] CT CHEST PULMONARY 2021-09-04 03:46:45 Bijan Verónica [facility] EMBOLISM W CONTRAST [facility] [place] XR CHEST 1 VW 2021-09-03 23:40:27 Jyoti Morales [facility] RESPIRATORY VIRAL PANEL + 2021-09-03 23:14:00 Jyoti Morales [facility] COVID-19, NASOPHARYNGEAL [facility] COMPLETE BLOOD COUNT / 2021-09-03 21:54:00 Jyoti Morales [facility] DIFFERENTIAL [facility] COMPREHENSIVE METABOLIC 2021-09-03 21:54:00 Jyoti Morales [facility] PANEL [facility] MAGNESIUM LEVEL 2021-09-03 21:54:00 Jyoti Morales [facility] PHOSPHORUS LEVEL 2021-09-03 21:54:00 Jyoti Morales [facility] NT PRO BNP 2021-09-03 21:54:00 Jyoti Morales [facility] TROPONIN T 2021-09-03 21:54:00 Jyoti Morales [facility] Results CBC 2021-09-03 21:54:00 Jyoti Morales [facility] MANUAL DIFFERENTIAL 2021-09-03 21:54:00 Jyoti Morales [facility] GLUCOSE LEVEL 2021-09-03 21:54:00 Jyoti Morales [facility] BLOOD UREA NITROGEN 2021-09-03 21:54:00 Jyoti Morales [facility] ELECTROLYTE PANEL 2021-09-03 21:54:00 Jyoti Morales [facility] SERUM CREATININE 2021-09-03 21:54:00 Jyoti Morales [facility] .GLOMERULAR FILTRATION 2021-09-03 21:54:00 Jyoti Morales [facility] CALCIUM LEVEL TOTAL 2021-09-03 21:54:00 Jyoit Morales [facility] ALBUMIN LEVEL 2021-09-03 21:54:00 Jyoti Morales [facility] ALKALINE PHOSPHATASE 2021-09-03 21:54:00 Jyoti Morales [facility] ALANINE AMINOTRANSFERASE 2021-09-03 21:54:00 Jyoti Morales [facility] ASPARTATE AMINOTRANSFERASE 2021-09-03 21:54:00 Jyoti [facility] TOTAL PROTEIN 2021-09-03 21:54:00 Jyoti Morales [place] [facility] FRACTIONATED BILIRUBIN 2021-09-03 21:54:00 Jyoti Morales [facility] EKG, 12-LEAD (PORTABLE) 2021-09-03 00:00:00 Jyoti Morales [facility] CT CHEST W CONTRAST 2021-08-13 14:15:24 Nicole Benitez [facility] POC CREATININE 2021-08-13 13:30:00 Nicole Benitez [facility] REPLACEMENT OF GASTROSTOMY 2021-05-22 04:50:00 Claude Tobin [facility] TUBE, PERCUTANEOUS, [facility] INCLUDES REMOVAL, WHEN Center PERFORMED, WITHOUT IMAGING OR ENDOSCOPIC GUIDANCE; NOT REQUIRING REVISION OF GASTROSTOMY TRACT CT CHEST ABDOMEN PELVIS W 2021-04-20 19:35:00 Jackie Mendez [facility] CONTRAST [facility] POC CREATININE 2021-04-20 18:02:00 Maria Fernanda [place] [facility] MRI BRAIN W WO CONTRAST 2021-04-20 16:10:00 Jackie Mendez [facility] Plan of Care Planned Activity Planned Date Details Comments Source Future Scheduled 2022-02-28 COVID-19 Vaccination [facility] Test 13:30:15 (#1) [code = COVID-19 [facility] Vaccination (#1)] Center Encounters Start End Encounter Admission Attending Care Care Encounter Source Date/Time Date/Time Type Type Clinicians Facility Department ID 2021-04-30 Emergency [facility] [id number] Univers 04:07:38 ity [facility] 2021-04-29 Emergency [facility] [id number] Univers 20:45:51 [facility] 2020-04-12 Outpatient MDA ANUJ [id number] 16:09:07 Anderso erasmo 2020-02-14 Outpatient SYSTEM, [facility] [id number] 13:23:33 PROVIDER Bakari [facility] 2021-12-28 2021-12-28 Nurse Lazaro, 1.2.840.1 [id number] Univers 00:00:00 00:00:00 Triage Constantine 14215.1.1 ity of 3.412.2.7 [place] .3.495281 .8 [facility] 2021-12-28 2021-12-28 Documentat Padmini 1.2.840.1 [id number] Univers 00:00:00 00:00:00 ion Maria Fernanda Fu 14781.1.1 ity of 3.412.2.7 [place] .3.573400 MD Haines8 [facility] 2021-12-20 2021-12-20 Telephone Ger, 1.2.840.1 [id number] Univers 00:00:00 00:00:00 Lolita 23247.1.1 ity of [place] 3.412.2.7 [place] .3.043501 MD Haines8 [facility] 2021-12-11 2021-12-11 Telephone Nuvia, 1.2.840.1 [id number] Univers 00:00:00 00:00:00 Bibiana Trevino 21761.1.1 ity of 3.412.2.7 [place] .3.457862 .8 [facility] 2021-12-05 2021-12-05 Telephone Tyson, 1.2.840.1 [id number] Univers 00:00:00 00:00:00 Kasie Lehman 87179.1.1 i ty of 3.412.2.7 [place] .3.243796 MD Haines8 [facility] 2021-12-01 2021-12-01 Nurse Marshall 1.2.840.1 [id number] Univers 00:00:00 00:00:00 Triage Erin Lehman 24061.1.1 i ty of 3.412.2.7 [place] .3.106423 .8 [facility] 2021-11-13 2021-11-13 Raul Clark, 1.2.840.1 [id number] Univers 00:00:00 00:00:00 Only Stella 42878.1.1 it y of 3.412.2.7 [place] .3.038208 .8 [facility] 2021-11-13 2021-11-13 Uzma Shaffer 1.2.840.1 [id number] Univers 00:00:00 00:00:00 Daisy N 71787.1.1 it y of 3.412.2.7 [place] .3.269972 .8 [facility] 2021-11-02 2021-11-02 Fito Huber 1.2.840.1 [id number] Univers 00:00:00 00:00:00 Only Herrera 59253.1.1 ity of 3.412.2.7 [place] .3.618358 .8 [facility] 2021-11-02 2021-11-02 Nurse Karishma Chu 1.2.840.1 [id number] Univers 00:00:00 00:00:00 Triage J 22037.1.1 ity of 3.412.2.7 [place] .3.546630 .8 [facility] 2021-10-15 2021-10-24 Inpatient ER MICAH [facility] Hosp Med [id number] 09:35:00 17:00:00 BONI zimmerman 2021-10-15 2021-10-24 [facility] Verónica Thakkar 1.2.840.1 [id number] Univers 09:35:00 17:00:00 Encounter Thelma Bowser 77494.1.1 ity of [place], Ed 3.412.2.7 Gio as Tod Glass V. .3.921483 Boni Dominguez .8 [facility] 2021-10-24 2021-10-24 Nurse Jackson 1.2.840.1 [id number] Univers 00:00:00 00:00:00 Triage Amsha 64692.1.1 ity of 3.412.2.7 [place] .3.493405 .8 [facility] 2021-10-23 2021-10-23 Inpatient NICHOLE VAUGHAN ANUJ LESLIE [id number] 20:59:49 21:16:07 BONI Bakari zimmerman 2021-10-19 2021-10-19 Surgery Rod, 1.2.840.1 [id number] Univers 15:10:00 15:50:00 Gibbons 94031.1.1 ity of Ali 3.412.2.7 [place] .3.047372 .8 [facility] 2021-10-19 2021-10-19 Anesthesia Jenise Degroot 1.2.840.1 [id number] Univers 13:24:00 13:49:00 Event Dhiraj Fry 76749.1.1 ity of 3.412.2.7 [place] .3.972554 .8 [facility] 2021-10-18 2021-10-18 Prep for O'Brandon, 1.2.840.1 [id number] Univers 00:00:00 00:00:00 Surgery Shena 33748.1.1 [place] .3.225832 .8 [facility] 2021-10-17 2021-10-17 Inpatient TOD CAMACHO MDA MDA [id number] 11:46:00 11:46:04 Bakari zimmerman 2021-10-16 2021-10-16 Inpatient EL PADMINI, ANUJ LESLIE [id number] 14:52:17 14:52:20 MARIA FERNANDA zimmermna 2021-10-16 2021-10-16 Inpatient EL FOSSELLA, MDA MDA [id number] 10:37:11 10:37:14 MARIA FERNANDA zimmerman 2021-10-16 2021-10-16 Inpatient EL FOSSELLA, MDA MDA [id number] 10:05:03 10:05:06 MARIA FERNANDA zimmerman 2021-10-15 2021-10-15 Inpatient NICHOLE KIM, ED [facility] [id number] 23:20:17 23:40:10 Bakari zimmerman 2021-10-15 2021-10-15 Travel 1.2.840.1 1.2.633.691 [id number] Univers 00:00:00 00:00:00 52817.1.1 350.1.13.41 ity of 3.412.2.[place].698 [place] .3.473404 084.8 .8 [facility] 2021-10-11 2021-10-11 Orders Amber, 1.2.840.1 [id number] Univers 00:00:00 00:00:00 Only Stella 02091.1.1 it y of 3.412.2.7 [place] .3.968322 MD Haines8 [facility] 2021-10-10 2021-10-10 Orders Shantal 1.2.840.1 [id number] Univers 00:00:00 00:00:00 Only Kaylyn, 82152.1.1 ity of Deshawn 3.412.2.7 [place] .3.279735 MD Haines8 [facility] 2021-10-10 2021-10-10 Nurse Dean, 1.2.840.1 [id number] Univers 00:00:00 00:00:00 Triage Stella Stewart 15903.1.1 ity of 3.412.2.7 [place] .3.077437 MD Haines8 [facility] 2021-10-10 2021-10-10 Telephone Price, 1.2.840.1 [id number] Univers 00:00:00 00:00:00 Ileana Ann 95781.1.1 i ty of 3.412.2.7 [place] .3.902821 MD Haines8 [facility] 2021-09-03 2021-09-07 Inpatient TY ESTES [facility] [id number] 16:59:00 15:45:00 GURPREET Bakari o erasmo 2021-09-03 2021-09-07 [facility] Verónica Thakkar 1.2.840.1 [id number] [facility] 16:59:00 15:45:00 Jojo Mehrdad Rod 56360.1.1 ity of Gurpreet Estes 3.412.2.7 [place] .3.428419 MD Beasley [facility] 2021-09-07 2021-09-07 Travel 1.2.840.1 [id number] [id number] [facility] 00:00:00 00:00:00 09833.1.1 350.1.13.41 ity of 3.412.2.7 2[place].3.698 [place] .3.164100 084.8 MD Beasley [facility] 2021-09-05 2021-09-05 [facility] NICHOLE HART MDA [facility] [id number] 11:14:45 11:38:29 SOFI Villegas luis zimmerman 2021-09-03 2021-09-03 Travel 1.2.840.1 1.2.109.602 [id number] Univers 00:00:00 00:00:00 96902.1.1 350.1.13.41 ity of 3.412.2.7 [place]7.3.698 [place] .[place].524135 084.8 MD Beasley [facility] 2021-09-03 2021-09-03 Telephone John, 1.2.840.1 [id number] [facility] 00:00:00 00:00:00 Michael Lehman 25456.1.1 ity of 3.412.2.7 [place] .3.802721 MD Beasley [facility] 2021-08-22 2021-08-22 Telephone Amber, 1.2.840.1 [id number] Univers 00:00:00 00:00:00 Stella 74249.1.1 it y of 3.412.2.7 [place] .3.460497 MD Beasley [facility] 2021-08-22 2021-08-22 Raul Clark, 1.2.840.1 [id number] Univers 00:00:00 00:00:00 Only Stella 17001.1.1 it y of 3.412.2.7 [place] .3.860577 MD Haines8 [facility] 2021-08-20 2021-08-20 Raul Sanon, 1.2.840.1 [id number] Univers 00:00:00 00:00:00 Only Lela Desiree 78864.1.1 ity of 3.412.2.7 [place] .3.277170 MD Haines8 [facility] 2021-08-18 2021-08-18 Raul Clark, 1.2.840.1 [id number] Univers 00:00:00 00:00:00 Only Stella 02562.1.1 it y of 3.412.2.7 [place] .3.120287 MD Haines8 [facility] 2021-08-18 2021-08-18 Orders Padmini, 1.2.840.1 [id number] Univers 00:00:00 00:00:00 Only Maria Fernanda Fu 82589.1.1 ity of 3.412.2.7 [place] .3.002591 MD Haines8 [facility] 2021-08-17 2021-08-17 Zulema Viramontes 1.2.840.1 [id number] Univers 00:00:00 00:00:00 Desiree 70030.1.1 ity of 3.412.2.7 [place] .3.893098 MD Haines8 [facility] 2021-08-14 2021-08-14 Monae Piedra 1.2.840.1 [id number] Univers 12:15:00 13:20:09 Visit Herrera 86036.1.1 ity of 3.412.2.7 [place] .3.359607 MD Haines8 [facility] 2021-08-14 2021-08-14 Outpatient NICHOLE PIEDRA [facility] [id number] MD 12:00:47 13:20:09 HERRERA zimmerman 2021-08-14 2021-08-14 Outpatient NICHOLE [place] [facility] [id number] 09:07:00 10:28:29 MARIA FERNANDA zimmerman 2021-08-14 2021-08-14 Office Padmini, 1.2.840.1 [id number] [facility] 08:30:00 10:28:29 Visit Maria Fernanda Fu [id number] ity of [id number] [place] .3.894552 MD [facility] 2021-08-14 2021-08-14 Orders Solo, 1.2.840.1 [id number] Univers 00:00:00 00:00:00 Only Jacki 54996.1.1 ity of 3.412.2.7 [place] .3.112887 MD [facility] 2021-08-14 2021-08-14 Orders Gucci, 1.2.840.1 [id number] Univers 00:00:00 00:00:00 Only Sarah M 21172.1.1 ity of 3.412.2.7 [place] .3.809402 MD [facility] 2021-08-14 2021-08-14 Travel 1.2.840.1 1.2.304.003 2462 [id number] Univers 00:00:00 00:00:00 02328.1.1 350.1.13.41 ity of 3.412.2.7 [place].3.698 [place] .[place].2844[place] 084.8 MD [facility] 2021-08-13 2021-08-13 Outpatient RAYMUNDO METCALF [facility] [id number] 09:45:00 23:59:00 Bakari zimmerman 2021-08-13 2021-08-13 [facility] Raymundo Marr 1.2.840.1 [id number] Univers 09:45:00 23:59:00 Encounter 22884.1.1 it y of 3.412.2.7 [place] .3.737820 MD .8 [facility] 2021-08-13 2021-08-13 Outpatient NICHOLE BENITEZ, [facility] [id number] MD 06:35:00 09:44:00 NICOLE Bakari [facility] 2021-08-13 2021-08-13 [facility] Benitez, 1.2.840.1 [id number] [id number] Univers 06:35:00 09:44:00 Encounter Nicole 60823.1.1 it y of [place] 3.412.2.7 [place] .3.392939 MD [facility] 2021-08-13 2021-08-13 [facility] Benitez, 1.2.840.1 [id number] Univers 00:00:00 00:00:00 Only Nicole 57951.1.1 ity of [place] 3.412.2.7 [place] .3.096463 MD [facility] 2021-08-13 2021-08-13 Travel 1.2.840.1 1.2.164.612 1261 [id number] Univers 00:00:00 00:00:00 95091.1.1 350.1.13.41 ity of 3.412.2.7 [place].3.698 [place] 084.8 MD [facility] 2021-08-11 2021-08-11 Angel Washington, 1.2.840.1 [id number] 1089 [id number] Univers 00:00:00 00:00:00 Maria Fernanda Fu 08965.1.1 ity of 3.412.2.7 [place] .3.997163 MD [facility] 2021-08-07 2021-08-07 Raul Fenton, 1.2.840.1 [id number] 7149 Univers 00:00:00 00:00:00 Only Abdirizak 64630.1.1 ity of 3.412.2.7 [place] .3.345203 MD [facility] 2021-07-27 2021-07-27 Uzma Farias 1.2.840.1 [id number] 1 [id number] Univers 00:00:00 00:00:00 Génesis Ann 72396.1.1 ity of 3.412.2.7 [place] .3.217512 MD [facility] 2021-07-27 2021-07-27 Angel Clark, 1.2.840.1 [id number] Univers 00:00:00 00:00:00 Stella 72764.1.1 it y of 3.412.2.7 [place] .3.442402 MD Haines8 [facility] 2021-07-26 2021-07-26 Telephone Nathaliealexi, 1.2.840.1 [id number] 1 [id number] Univers 00:00:00 00:00:00 Génesis Trevino 68503.1.1 ity of 3.412.2.7 [place] .3.458725 MD [facility]8 [facility] 2021-07-26 2021-07-26 Orders Andrea, 1.2.840.1 [id number] Univers 00:00:00 00:00:00 Only Jackie 42619.1.1 ity of 3.412.2.7 [place] .3.011279 MD [facility]8 [facility] 2021-07-26 2021-07-26 Angel Clark, 1.2.840.1 [id number] 0173 Univers 00:00:00 00:00:00 Stella 60133.1.1 it y of 3.412.2.7 [place] .3.514116 MD [facility]aines8 [facility] 2021-07-19 2021-07-19 Telephone Edmund, 1.2.840.1 [id number] [id number] Univers 00:00:00 00:00:00 Daisy Zimmerman 72757.1.1 it y of 3.412.2.7 [place] .3.326185 MD [facility]8 [facility] 2021-07-12 2021-07-12 Telephone Amber, 1.2.840.1 [id number] [id number] Univers 00:00:00 00:00:00 Stella 92633.1.1 it y of 3.412.2.7 [place] .3.018843 MD [facility] 2021-07-11 2021-07-11 Raul Clark, 1.2.840.1 [id number] Univers 00:00:00 00:00:00 Only Stella 08657.1.1 it y of 3.412.2.7 [place] .3.058298 MD [facility]aines8 [facility] 2021-07-11 2021-07-11 Telephone Price, 1.2.840.1 [id number] [id number] Univers 00:00:00 00:00:00 Ileana Ann 45884.1.1 i ty of 3.412.2.7 [place] .3.268182 MD [facility] 2021-07-02 2021-07-02 Raul Clark, 1.2.840.1 [id number] Univers 00:00:00 00:00:00 Only Stella 19372.1.1 it y of 3.412.2.7 [place] .3.539931 MD [facility] 2021-06-27 2021-06-27 Raul Clark, 1.2.840.1 [id number] Univers 00:00:00 00:00:00 Only Stella 98261.1.1 it y of 3.412.2.7 [place] .3.140666 MD [facility] 2021-06-25 2021-06-25 Raul Clark, 1.2.840.1 [id number] 5701 Univers 00:00:00 00:00:00 Only Stella 67568.1.1 it y of 3.412.2.7 [place] .3.324794 MD [facility]aines8 [facility] 2021-06-14 2021-06-14 Telephone Ger, 1.2.840.1 [id number] 1 [id number] Univers 00:00:00 00:00:00 Lolita 70721.1.1 ity of [place] 3.412.2.7 [place] .3.728359 .8 [facility] 2021-06-11 2021-06-11 Orders Amber, 1.2.840.1 [id number] Univers 00:00:00 00:00:00 Only Stella 06715.1.1 it y of 3.412.2.7 [place] .3.905883 MD [facility]aines8 [facility] 2021-06-09 2021-06-09 Angel Rivas, 1.2.840.1 [id number] Univers 00:00:00 00:00:00 Yudith Lehman 15838.1.1 ity of 3.412.2.7 [place] .3.798737 .8 [facility] 2021-06-06 2021-06-06 Telephone Marcderrick, 1.2.840.1 [id number] 1 [id number] Univers 00:00:00 00:00:00 Génesis Trevino 24260.1.1 ity of 3.412.2.7 [place] .3.943885 MD [facility]aines8 [facility] 2021-05-21 2021-05-21 Surgery Tobin, 1.2.840.1 [id number] 6280 Univers 14:50:00 15:20:00 Claude 77207.1.1 ity of 3.412.2.7 [place] .3.277412 MD Haines8 [facility] 2021-05-21 2021-05-21 Outpatient CRISTA, ANUJ Amina/Hep/Nu [id number] 12:54:00 13:30:00 CLAUDE zimmerman 2021-05-21 2021-05-21 [facility] Tobin, 1.2.840.1 [id number] Univers 12:54:00 13:30:00 Encounter Claude 43984.1.1 it y of 3.412.2.7 [place] .3.142115 MD Haines8 [facility] 2021-05-21 2021-05-21 Travel 1.2.840.1 1.2.379.957 [id number] [id number] Univers 00:00:00 00:00:00 20126.1.1 350.1.13.41 ity of 3.412.2.7 [place].3.698 [place].7527[place] 084.8 MD Haines8 [facility] 2021-05-17 2021-05-17 Prep for June, 1.2.840.1 [id number] Univers 00:00:00 00:00:00 Surgery Elmira Erasmo 91613.1.1 it y of 3.412.2.7 [place] .3.321231 MD [facility]aines8 [facility] 2021-05-17 2021-05-17 Raul Clark, 1.2.840.1 [id number] 7943 Univers 00:00:00 00:00:00 Only Stella 72373.1.1 it y of 3.412.2.7 [place] .3.207393 MD Haines8 [facility] 2021-05-16 2021-05-16 Raul Clark, 1.2.840.1 [id number] Univers 00:00:00 00:00:00 Only Stella 80238.1.1 it y of 3.412.2.7 [place] .3.723973 MD [facility]aines8 [facility] 2021-05-16 2021-05-16 Telephone Ger, 1.2.840.1 [id number] 1 [id number] Univers 00:00:00 00:00:00 Lolita 59760.1.1 ity of [place] 3.412.2.7 [place] .3.169430 MD [facility]aines8 [facility] 2021-05-16 2021-05-16 Telephone Ger, 1.2.840.1 [id number] 1 [id number] Univers 00:00:00 00:00:00 Lolita 38545.1.1 ity of [place] 3.412.2.7 [place] .3.765051 MD [facility]aines8 [facility] 2021-05-14 2021-05-14 Raul Javed 1.2.840.1 [id number] 4754 Univers 00:00:00 00:00:00 Only Giovanna Flores 35802.1.1 i ty of 3.412.2.7 [place] .3.607111 MD [facility]8 [facility] 2021-04-27 2021-04-27 Orders Amber, 1.2.840.1 [id number] Univers 00:00:00 00:00:00 Only Stella 73656.1.1 it y of 3.412.2.7 [place] .3.972152 MD [facility]aines8 [facility] 2021-04-25 2021-04-25 Raul Clark, 1.2.840.1 [id number] 8397 Univers 00:00:00 00:00:00 Only Stella 90315.1.1 it y of 3.412.2.7 [place] .3.396784 MD Haines8 [facility] 2021-04-23 2021-04-23 Outpatient RAYMUNDO MARR [facility] [id number] [place] 09:38:02 23:59:00 [facility] 2021-04-23 2021-04-23 [facility] Raymundo Marr 1.2.840.1 [id number] [facility] 09:38:02 23:59:00 Encounter 41401.1.1 it y of 3.412.2.7 [place] .3.598434 MD Haines8 [facility] 2021-04-23 2021-04-23 Raul Benitez 1.2.840.1 [id number] 5447 Univers 00:00:00 00:00:00 Only Nicole 94353.1.1 ity of [place] 3.412.2.7 [place] .3.920224 MD Haines8 [facility] 2021-04-23 2021-04-23 Raul Benitez 1.2.840.1 [id number] 3240 Univers 00:00:00 00:00:00 Only Nicole 28165.1.1 ity of [place] 3.412.2.7 [place] .3.629418 MD Haines8 [facility] 2021-04-23 2021-04-23 Raul Benitez, 1.2.840.1 [id number] 8070 Univers 00:00:00 00:00:00 Only Nicole 56150.1.1 ity of [place] 3.412.2.7 [place] .3.981128 MD [facility] 2021-04-23 2021-04-23 Raul Benitez, 1.2.840.1 [id number] 9699 Univers 00:00:00 00:00:00 Only Nicole 39760.1.1 ity of [place] 3.412.2.7 [place] .3.495430 MD Haines8 [facility] 2021-04-23 2021-04-23 Travel 1.2.840.1 1.2.157.500 6996 [id number] Univers 00:00:00 00:00:00 76214.1.1 350.1.13.41 ity of 3.412.2.7 [place]7.3.698 [place].2660[place] 084.8 MD [facility] 2021-04-20 2021-04-20 [facility] [id number] 11:46:55 23:59:00 MARIA FERNANDA zimmerman 2021-04-20 2021-04-20 [facility], 1.2.840.1 [id number] [id number] Univers 11:46:55 23:59:00 Encounter Maria Fernanda Fu 44136.1.1 i ty of 3.412.2.7 [place] .3.514086 MD [facility] 2021-04-20 2021-04-20 [facility], 1.2.840.1 [id number] Univers 09:15:00 11:00:00 Procedure Maria Fernanda Fu 87494.1.1 i ty of 3.412.2.7 [place] .3.448793 MD [facility] 2021-04-20 2021-04-20 Outpatient [facility] [id number] 09:22:02 09:22:02 MARIA FERNANDA zimmerman 2021-04-202021-04-20 Travel 1.2.840.1 1.2.166.738 [id number] [id number] [facility] 00:00:00 00:00:00 63345.1.1 350.1.13.41 ity of 3.412.2.7 2.[place]7.3.698 [place].7018[place] 084.8 [facility] 2021-04-16 2021-04-16 Outpatient NICHOLE BENJAMIN [facility] [id number] 09:30:00 23:59:00 MARY BETH zimmerman 2021-04-16 2021-04-16 [facility] 1.2.840.1 [id number] [facility] 09:30:00 23:59:00 Encounter Mary Beth Ann 59756.1.1 i ty of 3.412.2.7 [place] .3.486457 MD [facility] 2021-04-16 2021-04-16 Outpatient NICHOLE COLON [facility] [id number] 09:14:50 10:36:47 HERRERA zimmerman 2021-04-16 2021-04-16 Office Rah 1.2.840.1 [id number] [facility] 09:00:00 10:36:47 Visit Herrera 34863.1.1 ity of 3.412.2.7 [place] .3.733599 MD [facility] 2021-04-16 2021-04-16 Travel 1.2.840.1 1.2.099.030 3206 [id number] Univers 00:00:00 00:00:00 37194.1.1 350.1.13.41 ity of 3.412.2.7 2.[place]7.3.698 [place]3.094601 084.8 MD [facility] 2021-04-13 2021-04-13 Raul Giraldo 1.2.840.1 [id number] 6321 Univers 00:00:00 00:00:00 Only Wayne 33143.1.1 ity of 3.412.2.7 [place] .3.395944 MD [facility]aines8 [facility] 2021-04-07 2021-04-07 Orders Jaerika 1.2.840.1 [id number] Univers 00:00:00 00:00:00 Only Kaylyn, 44577.1.1 ity of [place]hawn 3.412.2.7 [place] .3.750018 MD [facility]aines8 [facility] 2021-04-07 2021-04-07 Nurse Brandon, 1.2.840.1 [id number] 766 [id number] Univers 00:00:00 00:00:00 Triage Juan Lehman 91237.1.1 it y of 3.412.2.7 [place] .3.975451 .8 [facility] 2021-04-05 2021-04-05 Raul Clark, 1.2.840.1 [id number] 6156 Univers 00:00:00 00:00:00 Only Stella 41881.1.1 it y of 3.412.2.7 [place] .3.395216 MD Haines8 [facility] 2021-04-04 2021-04-04 Angel Gonzalez 1.2.840.1 [id number] 2510 Univers 00:00:00 00:00:00 Gurpreet Ramírez 60751.1.1 it y of 3.412.2.7 [place] .3.499831 MD [facility]aines8 [facility] 2021-04-04 2021-04-04 Gabrielle Osborne 1.2.840.1 [id number] 10 [id number] Univers 00:00:00 00:00:00 Graciela 55748.1.1 ity of 3.412.2.7 [place] .3.632569 MD Haines8 [facility] 2021-04-03 2021-04-03 Gillian Marr 1.2.840.1 [id number] [id number] Univers 14:00:00 14:00:00 Naida 96539.1.1 ity of 3.412.2.7 [place] .3.736722 MD Haines8 [facility] 2021-04-03 2021-04-03 Outpatient NICHOLE MARR [facility] [id number] 11:57:30 11:57:39 NAIDA [facility] 2021-03-30 2021-03-30 Raul Clark, 1.2.840.1 [id number] Univers 00:00:00 00:00:00 Only Stella 27439.1.1 it y of 3.412.2.7 [place] .3.629903 MD Haines8 [facility] 2021-03-29 2021-03-29 Raul Clark 1.2.840.1 [id number] 3932 Univers 00:00:00 00:00:00 Only Stella 81863.1.1 it y of 3.412.2.7 [place] .3.498402 MD Haines8 [facility] 2021-03-27 2021-03-27 Raul Clark 1.2.840.1 [id number] Univers 00:00:00 00:00:00 Only Stella 99976.1.1 it y of 3.412.2.7 [place] .3.624344 MD Haines8 [facility] 2021-03-27 2021-03-27 Angel Santillan, 1.2.840.1 [id number] Univers 00:00:00 00:00:00 Wilfredo Stewart 09002.1.1 ity of 3.412.2.7 [place] .3.809492 MD [facility]aines8 [facility] 2021-03-09 2021-03-09 Raul Perez 1.2.840.1 [id number] Univers 00:00:00 00:00:00 Only Tanja Mora 12055.1.1 ity of 3.412.2.7 [place] .3.539076 MD [facility]aines8 [facility] 2021-03-08 2021-03-08 Raul Clark 1.2.840.1 [id number] 4349 Univers 00:00:00 00:00:00 Only Stella 92873.1.1 it y of 3.412.2.7 [place] .3.417873 .8 [facility] 2021-03-07 2021-03-07 Orders Chris, 1.2.840.1 [id number] Univers 00:00:00 00:00:00 Only Tanja Abby 60893.1.1 ity of 3.412.2.7 [place] .3.818731 .8 [facility] 2021-03-07 2021-03-07 Documentat Odpadmini, 1.2.840.1 [id number] Univers 00:00:00 00:00:00 ion Lenarben 79461.1.1 ity of 3.412.2.7 [place] .3.829421 .8 [facility] 2021-03-07 2021-03-07 Angel Rivas, 1.2.840.1 [id number] Univers 00:00:00 00:00:00 Yudith Lehman 39611.1.1 ity of 3.412.2.7 [place] .3.923152 .8 [facility] 2021-03-07 2021-03-07 Documentat Shivam, 1.2.840.1 [id number] Univers 00:00:00 00:00:00 ion Sahara 34394.1.1 ity of Sofi 3.412.2.7 [place] .3.989956 .8 [facility] 2021-02-16 2021-03-02 Inpatient [facility]AV [facility] [id number] 13:50:00 18:30:00 IRINA Villegas o n 2021-03-02 2021-03-02 Inpatient NICHOLE SMITH [facility] [id number] 10:28:13 10:52:29 IRINA Villegas o erasmo 2021-03-01 2021-03-01 Inpatient GABRIELLE SQUIRES [facility] [id number] 13:48:32 14:24:14 Bakari o erasmo 2021-02-28 2021-02-28 Inpatient GABRIELLE SQUIRES [facility] [id number] 15:34:04 16:08:02 Bakari o n 2021-02-27 2021-02-27 Inpatient EL FOSSELLA, MDA MDA [id number] 11:31:18 11:31:23 MARIA FERNANDA zimmerman 2021-02-23 2021-02-23 Inpatient EL JOSE, MDA MDA [id number] 08:50:18 09:09:38 MARCIN zimmerman 2021-02-20 2021-02-20 Inpatient EL HALM, MDA MDA [id number] 21:52:07 22:45:31 MAYANK Villegas o erasmo 2021-02-19 2021-02-19 Inpatient EL HALM, MDA MDA [id number] 16:34:08 16:35:56 MAYANK Villegas o erasmo 2021-02-19 2021-02-19 Inpatient EL HALM, MDA MDA [id number] 14:32:55 14:50:27 MAYANK Villegas o erasmo 2021-02-19 2021-02-19 Inpatient EL FOSSELLA, MDA MDA [id number] 11:06:11 11:06:14 MARIA FERNANDA zimmerman 2021-02-18 2021-02-18 Inpatient EL HALM, MDA MDA [id number] 15:44:22 16:22:28 MAYANK Villegas o erasmo 2021-02-17 2021-02-17 Inpatient EL TOD GLASS [facility] [id number] 03:53:53 04:06:50 Bakari o erasmo 2021-01-21 2021-01-30 Inpatient ER ODARO, [facility] [id number] 21:38:00 18:36:00 BENEDICTO zimmerman 2021-01-30 2021-01-30 Inpatient EL FOSSELLA, MDA MDA [id number] 15:18:04 15:18:06 MARIA FERNANDA zimmerman 2021-01-28 2021-01-28 Inpatient EL AL AMERI, MDA MDA [id number] 13:47:27 13:49:05 RASHAAD zimmerman 2021-01-25 2021-01-25 Inpatient EL AL AMERI, MDA MDA [id number] 20:37:26 20:37:30 RASHAAD zimmerman 2021-01-242021-01-24 Inpatient EL AL AMERI, MDA MDA [id number] 08:18:01 08:38:37 RASHAAD zimmerman 2021-01-22 2021-01-22 Inpatient EL AL AMERI, MDA MDA [id number] 19:02:05 19:25:15 RASHAAD zimmerman 2021-01-04 2021-01-19 Inpatient ER SIMBAQUEBA [facility] [id number] 11:01:00 16:25:00 Levi RAJPUT n 2021-01-18 2021-01-18 Inpatient EL FOSSELLA, MDA MDA [id number] 11:15:46 11:15:49 MARIA FERNANDA zimmerman 2021-01-15 2021-01-15 Inpatient EL FOSSELLA, MDA MDA [id number] 10:54:17 10:54:19 MARIA FERNANDA zimmerman 2021-01-14 2021-01-14 Inpatient EL ROXY, MDA MDA [id number] 12:12:50 13:22:39 JUAREZ Nye n 2021-01-12 2021-01-12 Inpatient EL FOSSELLA, MDA MDA [id number] 11:16:26 11:16:28 MARIA FERNANDA zimmerman 2021-01-10 2021-01-10 Inpatient EL FOSSELLA, MDA MDA [id number] 12:34:26 12:34:30 MARIA FERNANDA zimmerman 2021-01-09 2021-01-09 Inpatient EL MEERA, MDA MDA [id number] 21:30:37 21:42:18 GURPREET zimmerman 2021-01-08 2021-01-08 Inpatient EL ESTES, MDA MDA [id number] 11:15:00 12:40:27 GURPREET zimmerman 2021-01-07 2021-01-07 Inpatient EL SYLVESTERAMMED, MDA MDA [id number] 09:48:34 10:43:19 BONI zimmerman 2021-01-05 2021-01-05 Inpatient EL FOSSELLA, MDA MDA [id number] 10:28:44 10:28:46 MARIA FERNANDA zimmerman 2020-12-26 2020-12-26 Outpatient EL FOSSELLA, MDA MDA [id number] 13:17:22 13:49:03 MARIA FERNANDA zimmerman 2020-12-22 2020-12-22 Outpatient EL FOSSELLA, MDA MDA [id number] 15:44:28 15:44:28 MARIA FERNANDA zimmerman 2020-12-20 2020-12-20 Outpatient EL FOSSELLA, MDA MDA [id number] 14:45:38 15:10:28 MARIA FERNANDA zimmerman 2020-12-19 2020-12-19 Outpatient EL FOSSELLA, MDA MDA [id number] 15:02:13 15:33:05 MARIA FERNANDA zimmerman 2020-12-18 2020-12-18 Outpatient EL FOSSELLA, MDA MDA [id number] 14:30:00 23:59:00 MARIA FERNANDA zimmerman 2020-12-18 2020-12-18 Outpatient EL RAYMUNDO MARR MDA MDA [id number] 15:34:19 15:34:19 Bakari zimmerman 2020-12-18 2020-12-18 Outpatient EL FOSSELLA, MDA MDA [id number] 14:39:45 15:30:31 MARIA FERNANDA zimmerman 2020-12-15 2020-12-15 Outpatient EL FOSSELLA, MDA MDA [id number] 14:01:01 14:06:41 MARIA FERNANDA zimmerman 2020-10-26 2020-10-26 Outpatient R [facility] [id number] Univers 09:00:00 09:00:00 [id number] [facility] 2020-10-26 2020-10-26 Outpatient R [facility] [id number] Univers 09:00:00 09:00:00 [facility] 2020-10-19 2020-10-19 Outpatient R [facility] [id number] Univers 09:00:00 09:00:00 [id number] [facility] 2020-10-17 2020-10-17 Outpatient R [facility] [id number] Univers 09:30:00 09:30:00 [id number] [facility] 2020-10-17 2020-10-17 Outpatient R DIOGO [facility] [id number] Univers 09:30:00 09:30:00 [facility] 2020-07-27 Outpatient Bryson NAVA [facility] [id number] Univers 14:30:00 14:30:00 ATTENDING ity [facility] [place] [facility] 2020-07-05 2020-07-05 Outpatient EL TADEO, MDA MDA [id number] MD 10:29:44 10:55:21 HERRERA zimmerman 2020-04-28 2020-04-29 Inpatient HCAMN DANDRE [id number] 02:28:00 09:27:09 18 [facility] 2020-04-27 2020-04-27 Outpatient EL CORDELLELLA, MDA MDA [id number] 06:26:24 06:26:24 MARIA FERNANDA zimmerman 2020-04-25 2020-04-25 Outpatient EL FOSSELLA, MDA MDA [id number] 15:16:25 23:59:00 MARIA FERNANDA zimmerman 2020-04-25 2020-04-25 Outpatient EL CORDELLELLA, MDA MDA [id number] 16:52:13 16:52:13 MARIA FERNANDA zimmerman 2020-04-21 2020-04-21 Outpatient EL PADMINI, MDA MDA [id number] 12:34:59 15:51:01 MARIA FERNANDA zimmerman 2020-04-17 2020-04-17 Outpatient EL ROCKY RODRIGUEZ MDA MDA [id number] 11:29:21 23:59:00 Bakari zimmerman 2020-04-17 2020-04-17 Outpatient EL MDA MDA [id number] 09:00:09 11:28:00 Bakari zimmerman 2020-04-17 2020-04-17 Outpatient EL ROSA MARIA, MDA MDA [id number] 09:38:52 11:12:52 CODY zimmerman 2020-04-14 2020-04-14 Outpatient EL MDA MDA [id number] 11:14:57 23:59:00 Bakari zimmerman 2020-04-14 2020-04-14 Outpatient EL AURELIANO EDWARD MDA MDA [id number] 12:35:21 13:51:10 Bakari zimmerman 2020-04-14 2020-04-14 Outpatient EL MDA MDA [id number] 08:26:38 11:13:00 Bakari zimmerman 2020-04-13 2020-04-13 Outpatient EL MDA MDA [id number] MD 15:45:00 23:59:00 Bakarijanice zimmerman 2020-04-13 2020-04-13 Outpatient EL MDA MDA [id number] MD 13:53:11 15:44:00 Bakarijanice zimmerman 2020-04-13 2020-04-13 Outpatient EL MDA MDA [id number] MD 13:27:19 13:52:00 Bakarijanice zimmerman 2020-04-13 2020-04-13 Outpatient EL MDA MDA [id number] MD 10:45:00 13:26:00 Bakarijanice zimmerman 2020-04-13 2020-04-13 Outpatient EL ROSA MARIA, MDA MDA [id number] MD 07:39:14 10:44:00 CODY zimmerman 2020-04-12 2020-04-12 Outpatient EL ILILAWANDA, MDA MDA [id number] MD 12:45:00 23:59:00 ORACIO zimmerman 2020-04-11 2020-04-11 Outpatient EL BRENDON, MDA MDA [id number] MD 11:45:00 23:59:00 WILFREDO zimmerman 2020-04-11 2020-04-11 Outpatient EL BRENDON, MDA MDA [id number] MD 11:23:21 11:23:21 WILFREDO zimmerman 2020-03-31 2020-03-31 Outpatient EL YADIRA, MDA MDA [id number] 08:00:00 23:59:00 MAURICIO zimmerman 2020-03-31 2020-03-31 Outpatient EL ROSA MARIA, MDA MDA [id number] 08:51:09 09:59:36 CODY zimmerman 2020-03-20 2020-03-20 Outpatient EL ILIESCU, MDA MDA [id number] 10:02:47 10:02:47 ORACIO Villegas o eramso 2020-03-20 2020-03-20 Outpatient EL REGINA, MDA MDA [id number] 09:57:25 09:57:25 HAYLEY Villegas o erasmo 2020-03-10 2020-03-10 Outpatient EL REGINA, MDA MDA [id number] 08:10:34 08:10:34 HAYLEY Villegas o erasmo 2020-03-02 2020-03-02 Outpatient EL REGINA, MDA MDA [id number] 12:40:44 23:59:00 LATIRA Bakari o n 2020-03-02 2020-03-02 Outpatient EL SHANELL, MDA MDA [id number] 10:20:00 14:05:06 ORACIO Bakari o n 2020-03-02 2020-03-02 Outpatient EL REGINA, MDA MDA [id number] 12:15:00 12:39:00 LATIRA Bakari o n 2020-03-02 2020-03-02 Outpatient EL SHANELL, MDA MDA [id number] MD 10:29:25 10:29:25 ORACIO Bakari o n 2020-03-02 2020-03-02 Outpatient EL MDA MDA [id number] MD 10:00:01 10:00:10 Bakari o n 2020-02-29 2020-02-29 Outpatient EL MDA MDA [id number] MD 13:58:52 14:24:33 Bakari o n 2019-08-12 2019-08-15 Inpatient [facility] DANDRE [id number] [facility] 20:09:00 22:33:31 69 [facility] Results Test Description Test Time Test Comments Results Result Comments Source Fungal Blood Culture 2021-11-19 23:29:29 Test Item Value Reference Range Interpretation Comme nts Final Report (test code = 8488) No Fungi isolated. Path Review - Fungus (test code = Culture yield may be affected by sample 8479) quality, prior treatment, and transportation conditions.The results have been reviewed and electronically signed by Pathologist:SRUTHI ZABALA MD #[id number] [facility] Njrmgem5061-[facility]-02 01:20:36 Test Item Value Reference Range Interpretation Comments Final Report (test No growth code = 8488) Path Review - Culture yield may be Bottle/Isolator affected by sample (test code = 8499) quality, prior treatment, and transportation conditions....The results have been reviewed and electronically signed by Pathologist:Fredy Mercado MD, PhD #[id number] [facility] 17:07:36 Test Item Value Reference Range Interpretation Comments Total Cells (test code 100 = 80681-6) Neutrophil % (test code 63.0 % 42.0-66.0 The Neutrophil count = 93923-5) includes Bands. Lymphocyte % (test code 20.0 % 24.0-44.0 L = 737-7) Monocyte % (test code = 9.0 % 2.0-7.0 H 744-3) Eosinophil % (test code 2.0 % 1.0-4.0 = 714-6) Metamyelocyte % (test 6.0 % See_Comment H The Hi tamyelocyte code = 740-1) count includes Myelocytes. [Automated mess age] The system [employer] generated this result transmitted ref erence range: <=0.0. T he reference range was not used to int erpret this result as normal/abnormal . NRBC (test code = 1.0 See_Comment H [Automate d message] 75916-6) The system [employer] generated this result transmitted ref erence range: <=0.0. T he reference range was not used to int erpret this result as normal/abnormal . Neutrophil Abs (test 7.25 K/uL 1.70-7.30 code = 753-4) Lymphocyte Abs (test 2.30 K/uL 1.00-4.80 code = 732-8) Monocyte Abs (test code 1.04 K/uL 0.08-0.70 H = 743-5) Eosinophil Abs (test 0.23 K/uL 0.04-0.40 code = 712-0) RBC Morph (test code = Present Normal A 6742-1) PLT Morph (test code = Normal Normal 86289-2) Anisocytosis (test code Present Not Present A = 702-1) Poik (test code = Present Not Present A 779-9) Polychromasia (test Present Not Present A code = 12917-9) Ovalocyte (test code = Present Not Present A 774-0) Tear Drop (test code = Present Not Present A 7791-7) Lab Interpretation Abnormal (test code = 50752-1) [facility] [place].[id number] 17:07:32 Test Item Value Reference Range Interpretation Comments WBC (test code = 11.5 K/uL 4.0-11.0 H 6690-2) RBC (test code = 789-8) 4.25 See_Comment L [Au tomated message] The system [employer] generated this result transmitted ref erence range: 4.50 - 6 .00 M/uL. The refer ence range was not u sed to interpret this result as normal/abnor mal. Hgb (test code = 718-7) 12.1 See_Comment L [Au tomated message] The system [employer] generated this result transmitted ref erence range: 14.0 - 1 8.0 gm/dL. The refe rence range was not u sed to interpret this result as normal/abnor mal. Hct (test code = 38.9 % 40.0-54.0 L 4544-3) MCV (test code = 787-2) 92 fL 82-98 MCH (test code = 785-6) 28.5 pg 27.0-31.0 MCHC (test code = 31.1 See_Comment [Automate d message] 786-4) The system [employer] generated this result transmitted ref erence range: 31.0 - 3 6.0 gm/dL. The refe rence range was not u sed to interpret this result as normal/abnor mal. RDW-SD (test code = 57.5 fL 35.1-46.3 H 03444-1) RDW-CV (test code = 17.4 % 12.0-15.5 H 788-0) Platelet count (test 313 K/uL 140-440 code = 777-3) MPV (test code = 8.8 fL 4.0-10.4 09889-3) INRBC (test code = 0.2 % See_Comment H The INRBC (instrument 12272-7) NRBC) value ref lects the enumeration of nucleated red b lood cells contained in a 200uL sampleof whole blood analyzed by the instrument. Thi s value maydiffer from the NRBC value reported in a m anual differential,wh ich is based on a 100 cell differential. [Automated mess age] The system [employer] generated this result transmitted ref erence range: <=0.0. T he reference range was not used to int erpret this result as normal/abnormal . Lab Interpretation Abnormal (test code = 58941-0) [facility] ClinicElectrolyte [id number] 11:49:22 Test Item Value Reference Range Interpretation Comments Sodium Lvl (test code = 141 See_Comment [Au tomated message] The 2950-07) system which ge nerated this result tra nsmitted reference range : 136 - 145 mEq/L. The reference range was not u sed to interpret this result as normal/abnormal . Potassium Lvl (test 4.3 See_Comment [Automa lakhwinder message] The code = 2823-3) system which generated this result tra nsmitted reference range : 3.5 - 5.1 mEq/L. The reference range was not u sed to interpret this result as normal/abnormal . Chloride (test code = 106 See_Comment [Auto mated message] The ) system which ge nerated this result tra nsmitted reference range : 98 - 107 mEq/L. The refe rence range was not u sed to interpret this result as normal/abnormal . CO2 (test code = 23 See_Comment [Automated message] The 2028-02) system which ge nerated this result tra nsmitted reference range : 22 - 29 mEq/L. The refe rence range was not u sed to interpret this result as normal/abnormal . Anion Gap (test code = 12 See_Comment [Aut omated message] The 14469-4) system which ge nerated this result tra nsmitted reference range : 4 - 14 mEq/L. The refe rence range was not u sed to interpret this result as normal/abnormal . [facility] ClinicFractionated [id number] 11:49:21 Test Item Value Reference Range Interpretation Comments Bili Total (test <0.3 See_Comment Direct and indirect code = 1975-2) bilirubin vibha l not be reported when T otal bilirubin resul t is <0.3 mg/dLIndocyanin e Green (ICG) may cause false ly elevated bilirubin resul ts. Total and direct bilirubi n must not be measured from s amples containing indo cyanine green. False el evation of total bilirubin can be seen in patients wit h IgG concentrations above 28 g/L. [Automated mess age] The system which ge nerated this result transmit lakhwinder reference range: <=1.2 mg /dL. The reference range was not used to interpret th is result as normal/abnormal . [facility] ClinicGlomerular Filtration Rate 2021-10-24 11:49:20 Test Item Value Reference Range Interpretation Comments eGFR-AA (test code 107 See_Comment Normal eG FR: >= 60 = 15105-8) mL/min/1.73 m2N ote: The eGFR is calculated u sing the CKD-EPI equatio n. The eGFR declines with a ge. eGFR <60 mL/min/1.73 m2 is considered as "decreased". This equation should only be used for patients 18 and older. According to th e National Kidney Foundati on's Kidney Disease Outcome Quality Initiative (KDO QI) classification and 2012 Kidney Disease Improving Global Outcomes (KDIGO) Clinical Practi ce Guideline, the stage of CK D should be categorized bas ed on estimated GFR. Stage Description GFR mL/min/1.73 m21 Normal or h igh GFR >=902 Mildly decrease d GFR 60-893a Mildly to moder ately decreased GFR 4 5-593b Moderately to s everely decreased GFR 3 0-444 Severely decreased GFR 1 5-295 Kidney failure <15 [Au tomated message] The sy stem which generated this result transmitted ref erence range: >=60 mL/min/1.7 3 sq. m. The reference range was not used to interpret th is result as normal/abnormal . eGFR-JCARLOS (test code 93 See_Comment Normal e GFR: >= 60 = 65086-2) mL/min/1.73 m2N ote: The eGFR is calculated u sing the CKD-EPI equatio n. The eGFR declines with a ge. eGFR <60 mL/min/1.73 m2 is considered as "decreased". This equation should only be used for patients 18 and older. According to th e National Kidney Foundati on's Kidney Disease Outcome Quality Initiative (KDO QI) classification and 2012 Kidney Disease Improving Global Outcomes (KDIGO) Clinical Practi ce Guideline, the stage of CK D should be categorized bas ed on estimated GFR. Stage Description GFR mL/min/1.73 m21 Normal or h igh GFR >=902 Mildly decrease d GFR 60-893a Mildly to moder ately decreased GFR 4 5-593b Moderately to s everely decreased GFR 3 0-444 Severely decreased GFR 1 5-295 Kidney failure <15 [Au tomated message] The sy stem which generated this result transmitted ref erence range: >=60 mL/min/1.7 3 sq. m. The reference range was not used to interpret th is result as normal/abnormal . [facility] ClinicTotal [id number] 11:49:19 Test Item Value Reference Range Interpretation Comments Total Protein (test code = 2885-2) 6.3 g/dL 6.4-8.3 L Lab Interpretation (test code = Abnormal 89999-4) [facility] ClinicMagnesium [id number] 11:49:18 Test Item Value Reference Range Interpretation Comments Magnesium (test code = 21811-4) 2.1 mg/dL 1.6-2.6 [facility] ClinicAlkaline [id number] 11:49:17 Test Item Value Reference Range Interpretation Comments Alk Phos (test code = 6768-6) 59 U/L 40-129 [facility] ClinicALT2022-04-27 11:49:16 Test Item Value Reference Range Interpretation Comments ALT (test code = 14 U/L See_Comment [Automated message] The 1741-11) system which ge nerated this result transmit lakhwinder reference range : <=41. The reference range was not used to interpr et this result as paras l/abnormal. [facility].Serum Gerwobnocn4363-28-06 11:49:15 Test Item Value Reference Range Interpretation Comments Creatinine (test code = 2160-0) 0.81 mg/dL 0.67-1.17 [facility] ClinicBUN2022-04-27 11:49:14 Test Item Value Reference Range Interpretation Comments BUN (test code = 3094-0) 15 mg/dL 6-23 [facility] ClinicPhosphorus [id number] 11:49:13 Test Item Value Reference Range Interpretation Comments Phosphorus (test code = 2777-1) 3.4 mg/dL 2.5-4.5 [facility] ClinicCalcium [id number] 11:49:12 Test Item Value Reference Range Interpretation Comments Calcium Lvl (test code = 82828-6) 9.1 mg/dL 8.4-10.2 [facility] ClinicAlbumin [id number] 11:49:11 Test Item Value Reference Range Interpretation Comments Albumin Lvl (test code 3.6 See_Comment [Aut omated message] The = 9190) system which ge nerated this result tra nsmitted reference range : 3.5 - 5.2 gm/dL. The refe rence range was not used to interpret this result as normal/abnormal . [facility] ClinicAspartate Aminotransferase 2021-10-24 11:49:10 Test Item Value Reference Range Interpretation Comments AST (test code = 14 U/L See_Comment [Automated message] The 1920-01) system which Megathread nerated this result transmit lakhwinder reference range : <=40. The reference range was not used to interpr et this result as paras l/abnormal. [facility] ClinicGlucose [id number] 11:49:08 Test Item Value Reference Range Interpretation Comments Glucose Level (test code 105 mg/dL 70-99 H Eff ective 01/24/16, = 8765-7) the glucose reference inter vals have been updat ed based on Americ an Diabetes Associ ation guidelines (Standards of Medical Care in Diabetes 2016. Diabetes Care 2 016; 39: S13-S22).Fa sting blood glucose:Normal: 70-99 mg/dLImpa ired fasting glucose (increased risk for diabetes or pre-diabetes): 100-125 mg/dLDiabetes mellitus: >/=12 6 mg/dL Random bl ood glucose:Normal: 70-199 mg/dLNot e: Random glucose >100 mg/dL is associ ated with increased risk for diabetes Lab Interpretation (test Abnormal code = 10504-2) [facility] ClinicIgG [id number] 06:55:27 Test Item Value Reference Range Interpretation Comments IgG Total-Riddle (test 830 mg/dL 767-1590 code = 2465-3) IgG1-Riddle (test code = 418 mg/dL 533-121 1859-1) IgG2-Hart (test code = 157 mg/dL 171-632 L 7-9) IgG3-Riddle (test code = 56.8 mg/dL 18.4-106.0 8-7) IgG4-Riddle (test code = 8.8 mg/dL 2.4-121.0 Test Performed 2468-5) by:[facility] [address]TT i[id number] DTT [place], [place] [address]Poe Director: Petar Johnson M.D. Ph. D.; CLIA# [id number] 2 Lab Interpretation Abnormal (test code = 91678-9) [facility] ClinicIgG2022-04-25 19:29:59 Test Item Value Reference Range Interpretation Comments IgG (test code = 6001) 751 mg/dL 610-1616 [facility] ClinicIgA2022-04-25 19:29:58 Test Item Value Reference Range Interpretation Comments IgA (test code = 5992) 191 mg/dL 85-499 [facility] ClinicPathology Biopsy Interpretation 2021-10-22 15:30:07 Test Item Value Reference Range Interpretation Comments Submitted Clinical History j9efbMNoDVRti8rqACI (test code = 80788) mbGFuZzEwMzNcZnRuYm pcdWMxIHtccnRmMVxzc 4BiO4MbQtZvRRwjzhOl XGRlZmxhbmcxMDMzXGZ 0bmJqXHVjMVxkZWZmMH jhOf2djLDcrPtlVyEvM BJdc9dqvmRYwqkqtCu5 t5rnIINgFbF4hBRmSIv bK5kxekIasUCnWIDlEA i0bP75VDWyuY0iqTDgD QvygaHlXwS2LGlhHMRf NtV7GYAlrZMtGZDuS4a yZWQwXGdyZWVuMFxibH GvJXY5gEkzq6C9wSQoi GVldHtcZjBcZnMyMiBO t3PyTWo9jGrsF0FfZBT aNuF7mVVuRFRvZFahKT CjIQVixeK1dK78BXaxc cU3sNCmx8Szu54qu357 eI9wwQXjJEX8XMGkVEM bxQSiXPTeTPS8NWEjbL RxU9yuOCKiVR8hqgfkP ZylNLxlQJQyyBF8ATDr iAKaW7LyGVIvEQqhKZN clbc1KfTwLo2orFVayY ziXMian6rhw4kulXHwS to7EBIwYbOeFbhkITcf b6Fih9qiYCUlnc8xDPD 1zRXepJsof4X3hSLzAL FuwGCiheWrLZLmKpL4T TbmWL9zwi47WOLrWIU6 rw1wxGZqzFwhitJxmGI sPTfmK4UvBATji510IF HrR8JpYFZbg1R6biMxE nHtTNFdwNH9kpP1HKLw NXr5nRZjhcK9gxUrqUV hR7rrdD6iCHUqSV8vgm drb4uvKGsqXEluVFJov TE6zfV0TXJjpQQsX9Rj xY4cWHCaUOfeUZUrqtx 8HiNaMf4eaRQnoYnpWY xzYmtwYWdlXHBnbmNvb nRccGduZGVjXHBsYWlu XHBsYWluXGYwXGZzMjR dbJzdxMtrmO4fSeUpRd EzBNeeZT3jFJIrY8ykh YZsPSVxBKGtV9syJqTo xQ3cjNxgTDwycmFpTET 2DLjof9bkhmtmbZNsfq V9kQUsGkRoUbK5QQijm GFpblxmMVxmczIyXGxh tngqFYQgVLpeS3ysGwL rDWPooQbyYFpvu9JnBK YxXGZzMjJccGFyfX0= Diagnosis (test code = 34) x1rgsLFzITWknRK9EdR xQTAmb0yoz8AejWDlmW DkKGsyxVSvqlPyaw14x VY1wV10DJ5jDBOyRgJ3 FSHihuM3Ofz3TDJjDIC tpWQaK856d0snm6aqxa PggCP5kHgcDYSoanelG oU6LJadZHYlrqfqGFh8 EWnnBPAemDS0JHLnhRW kM8ZfOUGqZS1xqrc5ET R4SFkuOIDdBpR7EVOdz GZgAUBufHihQEzet381 IJN4FmBkQEUfjzXjyBp yzQ3pQgDpQUIXWsRpAP XaoYzvU5JhHYZzeZ4vi 1p7TRacmxBmTXk1ZSKo E6ijsodvcnAhl8JfcF8 gr0isZ4KguOixI38bd0 wozSNhzXV2wNEsAXYgx cSwJBZkZIRdeJxaQ5j2 aXNccGFyfQ== Gross Description (test y8sqhFMnEFGmfKISNUt code = [id number]) wMVxhbnNpXHNwbHRwZ3 JksneqCRjqJJ1qDQ2tt IozcIQxfTEtGM9TVVCo ZmYxXHBhcGVydzEyMjQ cSNEqrTMwwWT0SZNjPL 1hcmdsMTgwMFxtYXJnc wC9CQMkeAVxT9OeUUFk GH3joecfURF2CZjdqA4 cjlFXVecjHe0yqNSbgX tcZjFcZmNoYXJzZXQwX HDmpOuzOCSpESi6bM5P FkxoR70st4V2Dwx1FZQ sQLOnX7UiIQ0vKQZhwI VjF30JGngkACG6ZJOSW jfbGOKcIF3Yp4guQKJo kIWbPPJ7STtmrJVfSZV xMRHeRZz0SSZqIHqwqZ LiNS5xtBamLessqGtqy 2VjdCBcXGlkIDUxMDAy GHasNHJnXM3NDxSyBBD 7KVNeETJnSSa4NSf6UF 5FOwTuUEGqDCM2OSO2X DWzLYc6YPnlSE3JNOWl GgPtQWD1MMMkHZCsQUX lLGg8IQHaZKalHFJmqL FsIFxcZnMgMTAgXFxmY pGaLJSzGOhaffI8XQRc YWluXGJcZnMyMCBBOlx xPYZgKWzyaGxtxX7kPA YlO92ws8BQa0NbEV8RR En4ahJczmmghX9hBITk bwEtMVaewKKqD9ibIbf fYiUxDwBxEDQTy83wrC LcxZKaRMIqx3PhUPo9w nGbC39rO3RzJNgkMROj caIqNWSwdJcvC3p5nCM 6VMJuHLReQUNoM27kBO Nzmu0lec52cuKzncBuj QNlySYmUmDqi2A8IKVy i5I6TVCpKFCpoXKqeto jIR29ODSxKOTcND1zvD VkIHdpdGggcHJvYmFib PSjcJqbdyUffIP7JLFy EPioGYNivYqgGQh8KLP 4Of4ooYZuRFXkfcZXRJ 4sKRnvwm68QPS3q3ydo WVsZHtcKlxmbGRpbnN0 IEhZUEVSTElOSyBuYW1 lPUxJTktCRUdJTnwyMT HkJwjpsYLJLQA2VGsgl TgjyVj2n3emtAYit8u4 MMumKBD8jYkHf5pauLI fGQwqSwcryACwzhB5ZZ lFBNXPEAlBBbDhZF3uL SkZMvpNAbY3ZnEyICC4 FNjYZ3EWyLG4Aiv4TWy 8fXtcZmxkcnNsdCBcJz AWeD7xzZjbaP6zzGYiF 2hcZnMyMCANClxlcGlj IpCudDArKzAwuyM4GTW xbURuRAV4GA1nYDKowm gdHNQzJTYoJHS4BCtyg P44mXSxIWJwJNBtiFVh fVxwbGFpbiANClxzbC0 tQeCca7gudFo8NIXCKa gaaVMyrujfgcB2OLCfm 1vbkKcoi3WfeVLnXZ5o mRddfJ8jGdLqMgCVXo2 = Disclaimer (test code = r7vgkLWnJNPwyZTjLyD 9844) eSPGiYMEql1umROObyL FuZzEwMzNcZnRuYmpcd QPmEVNcFmDib2syn614 dJLba9onYYCqBrU6qBQ uGVTvpMHcE506XJSsJH frj2aov5BeNSAtiKIpy 6H5IXALrsnhsUf1fGhl D38aq1B9UtutG9uwVOM zLUAjE7GkOJ2cFWMxHi k1IXA0OLY8CJEpWMGfF 2EoUY1mAOLanSAkZRo8 k7riyRmqBBAkWFK0j8z vKLwjwnPbKD1cyk8oxU a2q5rpfxAyIECuVOWfh CIKQTCvI8CvkNtqIp6m jGu9aPteVitsTGX2Mgf 8FZ5qvw65xwf8kUbdYC VdfaleNeE9FCvuZDPjw nrtLBd5SAtlHIDreRE8 INZumDTtH9VxHDFnZW4 ywcz4STR5PUplQTAnQi V7DMXglSFyTHStwOvnB Ukth554YWV3ClBmHA2k B5Wnh0P3tY2iiDEkSCS sdLOkHjDcJUCvhu6lrX XqMDdvj0GeRUB6kxY2a YJzeSPfLAGgHA41Sfag t7AiTetuWUX9TNAuymR bf5Tww4pgOxIsjsClS1 byV4LmKJCdSNCeZIToT oEcfeSvz6Biu0RwuEXy pCh9d0vgJAOrIDZtpRk mc2qrHGA2VTZjB3K9lS Xmu5qjXFowURJwiJB7k kL4HSZlyGMbA9ZeaC4j FHWfZD3jtjg6d0nuQNG 2SEkgGOEgBwY8hdB4OA BcaGVhZGVyeTcyMFxmb 119GEQ8HtCfFYGtv9Yo X4AzdJvmQ13mwXksO33 sXAYsoGmhsD4nxAnahV 5cZjBcZnMyNFxxbFxwb JIxjlwzNChmgyE6DIha mjvbAMGpEWqjS6rtEtD lVMVsqVfuZPhmx7KqXY KnXTAoUaycfaF0HSRDq 89hVNUgm2VoLJOcdI0a dHTvCJfdhaTpdSB3WPz hdmUgYmVlbiBkZXZlbG 9qGWXtEY9gTCGrhoExm z4egvHlTCFlZANiM0Qn cmlzdGljcyBkZXRlcm1 vkxHuAPH3MZTHIA4COC GmCPSkz12iDOLhjHurj F5nlTDvrqJqVFDra4Di rJ2piZDEHWOeO0euTM6 vTCoqa6QshZCzuXBcvD D1XOVsk4TeUlVpmpGxv SYokSLfM3ChbOxxB7xb UEQtEMKyujZsnITwk8J uYDXbnGP4qGQqGR0RXy NYx45lXRWkUPPHsxZhI BCgnZcqhVR6vrQ6jM4x LiBJZiBhcHBsaWNhYmx jIUQhz450ae6mreB3YZ UaNLFepfsrc8AyZCVcJ GAieV16AHLyKTYbqe0e lnzfpCVorzDyT0Geopc 6iU8rNDRiLFzrZSXfIZ ZzMjJcbGFuZzEwMzNca GljaFxmMVxkYmNoXGYx EZtnA4uhRkYxCjAaUyc wYXJ9 [facility]neeFungyasir, [id number] 18:04:34 Test Item Value Reference Interpretation Comments Range Fungitell S-V (test 101 pg/mL <80 H Interpr etation: The code = 9239) Fungitell assay does not detect certain fungalspecies s uch as the genus Cryptococ cus (Marcelino et al. 1991) wh ichproduces very low levels of (1-3)-Beta-D-Gl ucan. The assay also does not detect the Zygomycetes such as Absidia, Mucor and Rhizopus(Kiki ramírez et al. 1994) which are not known to produce(1-3)-Be ta-D-Glucan. In addition, th e yeast phase of Blastomycesderm atitidis produces little (1-3)-Beta-D-Gl ucan and may not bedetected by the assay (Senthil et al . 2007).Reference Range:Less than 60 pg/mL. Glucan values of less than 60 pg/mL areinterp reted as negative.Glucan values of 60 to 79 pg/mL are interpreted as indeterminate,a nd suggest a possible fungal infection. Additional samp ling andtesting of s era is required to int erpret the results.Glucan values of greater than or equal to 80 pg/mL are inter pretedas positive.Due to the potential for e nvironmental contamination whentransferred to pour-off tubes, which ca n lead to false positiver esults, interpret posit ceci results from samples pr ovided inpour-off tube s with caution. Result s should be used in conjunc tionwith clinical findin gs, and should not form the sole basis for adiag nosis or treatment decis ion. The Fungitell test is approved orcleared for i n vitro diagnostic use by the U.[place] Food and DrugAdministrat ion. Modifications t o the approved packag e insert havebeen made a nd the performance cely racteristics for thesemodifi cations were determined by [employer].If samp le result is greater than 50 0 pg/mL, physician may o rder atiter of the sample. Please contact [employer] if you wouldlike t o order a retest of this sample to obtain an actua l value.Samples a re held for 1 week after in itial testing date. Perf ormed At:[facility] [id number] [place] [address] HOLDEN monaco [id number] Director: Andi Taylor Ph.D ., BCLD (ABB)CLIA#: [id number] e: Lab Interpretation Abnormal (test code = 39940-9) [facility] Clinic[facility] Panel Path Review 2021-10-18 14:39:17RMP PRReviewed and Electronically signed by Pathologist:Mary Beth Parikh MD, PhD #[id number] [facility]USUn[facility] TylerRespiratory PCR Panel, [employer] [id number] 14:29:47 Test Item Value Reference Range Interpretation Comments Adenovirus (test code = 4748) Not Detected Not Detected Coronavirus 229E (test code = Not Detected Not Detected 5349) Coronavirus HKU1 (test code = Not Detected Not Detected 5350) Coronavirus NL63 (test code = Not Detected Not Detected 5351) Coronavirus OC43 (test code = Not Detected Not Detected 5352) Human Metapneumovirus (test code Not Detected Not Detected = 6401) Human Rhinovirus/Enterovirus Detected Not Detected A (test code = 7212) Influenza A (test code = 5618) Not Detected Not Detected Influenza A H1 (test code = Not Detected Not Detected 5619) Influenza A H1 2009 (test code = Not Detected Not Detected 5620) Influenza A H3 (test code = Not Detected Not Detected 5621) Influenza B (test code = 5622) Not Detected Not Detected Parainfluenza 1 (test code = Not Detected Not Detected 6779) Parainfluenza 2 (test code = Not Detected Not Detected 6780) Parainfluenza 3 (test code = Not Detected Not Detected 6781) Parainfluenza 4 (test code = Not Detected Not Detected 6782) Respiratory Syncytial Virus Not Detected Not Detected (test code = 7157) Bordetella pertussis (test code Not Detected Not Detected = 4854) Chlamydiophila pneumoniae (test Not Detected Not Detected code = 5139) Mycoplasma pneumoniae (test code Not Detected Not Detected = 6203) Lab Interpretation (test code = Abnormal 41036-5) [facility] Glucose [id number] 11:58:24 Test Item Value Reference Interpretation Comments Range POC Glucose (test 196 mg/dL 70-99 H RN Notifie dCapillary code = 77732-7) blood sample s, e.g. obtained by fingerstick, ma y have inaccurate resu lts in patients with decreased perip heral blood flow. Met hod description: Al l results are ayan sured using Electroch emistry test methodolog y. The glucose in the sample mixes with the reagents on the test strip. The reac tion produces an kacy ctric current. The am ount of current produce d is proportional to the glucose concent ration in the blood. PO Sample Type (test Capillary code = 9554) Performing Lab (test MDA [facility] code = 91878) [facility] MD Marianela gustafson Clinical Lab, [address] [place], [place] [address]; Temperature Inspector: Aletha Arciniega MD Lab Interpretation Abnormal (test code = 94840-1) [facility] ClinicMRSA Screening [id number] 18:35:38 Test Item Value Reference Range Interpretation Comments Final Report (test No Methicillin resistant code = 8488) Staphylococcus aureus isolated. Path Review (test The results have been code = 8492) reviewed and electronically signed by Pathologist:Mary Beth Parikh MD, PhD #[id number] [facility] ClinicVancomycin Trough Vancomycin trough on 10/17/21@10:30AM. Nurse please coordinate with lab to draw trough approximately 11 - 11.5hours after 10/16/21 evening vanco dose. Hold vancomycin doses if trough isgreater than 20 and notify . Thanks!2021-10-17 18:05:08 Test Item Value Reference Range Interpretation Comments Vanco Trough 6.0 See_Comment Toxic Trough Le lawrence: (test code = >20 mcg/mL [Aut omated 4092-3) message] The sy stem which generated this result transmit lakhwinder reference range : 5.0 - 20.0 mcg/mL. Th e reference range was not used to int erpret this result as normal/abnormal . Vanco Tr Dose See note Level, date, a nd time Time (test of previous dos e is code = not availablefo r this 56464-4) sample. The donna e reported is the samplecollectio n date. Vanco Tr Dose 10/17/2021 Level, date, a nd time Date (test of previous dos e is code = not availablefo r this 05568-8) sample. The donna e reported is the samplecollectio n date. PAIGE (test Vancomycin trough on code = PAIGE) 10/17/21@10:30AM. Nurse please coordinate with lab to draw trough approximately 11 - 11.5hours after 10/16/21 evening vanco dose. Hold vancomycin doses if trough is greater than 20 and notify MD. Thanks! [facility] ClinicLegionella Urine Antigen Path [id number] 15:56:29Legionella Urine Antigen Path ReviewReviewed and Electronically signed by Pathologist:Mary Beth Charles, PhD #[id number] [facility] BRADSHAWUnUT Health TylerProcalcitonin 2021-10-17 11:00:32 Test Item Value Reference Range Interpretation Comments Procalcitonin (test code <0.04 See_Comment Pro calcitonin > 2.00 = 28072-7) ng/mL: Procalci tonin levels above 2. 00 ng/mL are highly sugg estive of a high risk for systematic bact erial infection/ ar re sepsis and/or septic s hock. Procalcitonin < 0.50 ng/mL: Procalci tonin levels below 0. 50 ng/mL are at low risk for progression to severe sepsis and/ or septic shock. Procalci tonin (ProCT) between 0.15 and 2.0 ng/mL do no t exclude infection, jennifer use localized infec tions (without system ic signs) may be associat ed with such low levels . Results greater than 40 0 ng/mL may not be reli able due to the matrix e ffect with extended d ilution as it exceeds t he lace sewer's recommended ching it. Caution should be exercised when interpreting nunez ch values and done in con junction with clinical c ontext. [Automated mess age] The system which ge nerated this result tra nsmitted reference range : <=0.08 ng/mL. The refe rence range was not u sed to interpret this result as normal/abnormal . [facility] ClinicLegion[facility] Urine [id number] 19:49:58 Test Item Value Reference Range Interpretation Comments Legionella Urine Antigen Negative Interpretation (test code = 7574395) [facility]ot[facility] Antigen Path [id number] 18:06:35Streptococcal Urine Antigen Path ReviewReviewed and Electronically signed by Pathologist:Mary Beth Parikh MD, PhD #[id number] [facility]ENTERUnNorthwest [facility] Healthcare Systemtreptococcus pneumoniae Urine [id number] 16:43:46 Test Item Value Reference Range Interpretation Comments Streptococcal Urine Antigen Negative Negative Interpretation (test code = [id number]) [facility] ([facility])2021-10-15 18:48:52 Test Item Value Reference Range Interpretation Comments Troponin T (test code = 23 ng/L See_Comment H < 19 ng/L Suggest 75382-8) retest at 3 to 6 hours later to rule o ut myocardial infa rction >= 19 to <=52 n g/L Possible myocar dial injury. Suggest retest at 3 hours. - a change of < 20 ng/L, retest at 6 nicole rs - a change of >= 20 ng/L, suggestive of myocardial infa rction > 52 ng/L Sugg estive of myocardial infarction Crit ical value will be r eported when cTnT is > 52 ng/L and only report ed for the first in a series. Hemolyzed speci mens with Hemolysis Index >100 (100 mg/dl or moderate hemoly sis) may cause interferences a nd falsely low res ults. [Automated mess age] The system [employer] generated this result transmitted ref erence range: <=18. Th e reference range was not used to int erpret this result as normal/abnormal . Lab Interpretation Abnormal (test code = 59817-6) [facility] 16:36[facility]02 Test Item Value Reference Range Interpretation Comments LDH (test code = 247 U/L 135-225 H Results gre ater than 51159-4) 1651 U/L may no t be reliable due to matrix effect w ith extended diluti on as it exceeds the lace sewer's recommended ching it. Caution should be exercised when interpreting nunez ch values and done in conjunction wit h clinical contex t. Lab Interpretation (test Abnormal code = 39191-6) [facility] ([facility])2021-10-15 16:31:03 Test Item Value Reference Range Interpretation Comments NT ProBNP (test code = 137 pg/mL See_Comment H [Aut omated message] 44238-6) The system whic h generated this result transmit lakhwinder reference range : <=125. The refe rence range was not u sed to interpret th is result as normal/abnormal . Lab Interpretation (test Abnormal code = 02331-5) [facility] ClinicCreatine [id number] 16:31:01 Test Item Value Reference Range Interpretation Comments CK (test code = 2157-6) 48 U/L 39-308 [facility]MB[facility] 16:31:00 Test Item Value Reference Range Interpretation Comments CK MB (test code = 2.2 ng/mL See_Comment [Automat ed message] The 33792-9) system which ge nerated this result tra nsmitted reference range : <=10.4. The reference r jose was not used to int erpret this result as normal/abnormal . [facility] ClinicCOVID-19 (SARS-CoV-2)Koffndlftqkb-[id number] 16:04:24 Test Item Value Reference Range Interpretation Comments COVID19 Not Detected Not Detected (SARS-CoV-2) (test code = 74182-2) COVID19 SARS Inpatient Indication (test Admission code = 80546) Covid 19 Comment See Note The kacy S ARS-CoV-2 (test code = [place] [address]) use on the xenia s [employer] System is a sherie l-time RT-PCR assay in tended for the qualita tive detection of SARS-CoV-2 (COV ID-19) viral RNA in nasopharyngeal swabs from either individuals payton pected of COVID-19 by their healthcare prov ider or from any individual, inc luding individuals wit hout symptoms or oth er reasons to susp ect COVID-19. A fac t sheet for patie nts provided by the lace sewer ([employer]) can be rev iewed at: https://www.fda .gov/m edia/716168/kunal nload. A fact sheet fo r Health Care pro viders is provided by the lace sewer ([employer]) and can be reviewed at: https://www.fda .gov/m edia/134207/kunal nload Results must be interpreted wit hin the context of all relevant clinic al and laboratory find ings and should not form the sole basis for a diagnosis or treatment decis ion. Positive result s do not rule out bacterial infec tion or co-infection with other viruses. Negative result s do not preclude SARS-CoV-2 infe ction and must be com bined with clinical observations, p atient history, and/or epidemiological information. Th is assay has been authorized by t [facility] for use only un areli Emergency Use Authorization ( EUA) in laboratories that have been CLIA-certified to perform moderate-comple xity and high-comple xity tests. The Microbiology Laboratory at [facility], CLIA Accreditation #[id number] and CAP Accreditation #[id number], verif ied the performance characteristics of this assay. Int ernal controls are ed to monitor all sta ges of the test proces s. [facility] ClinicaPTT2022-04-18 15:47:24 Test Item Value Reference Range Interpretation Comments aPTT (test code = 29.9 See_Comment [Automate d message] The 35861-5) system which ge nerated this result transmit lakhwinder reference range : 24.7 - 36.8 second(s). The reference range was not used to interpr et this result as paras l/abnormal. [facility] ClinicProthrombin Time with [id number] 15:47:23 Test Item Value Reference Range Interpretation Comments PT (test code = 5902-2) 13.5 See_Comment [Au tomated message] The system whic h generated this result transmitted ref erence range: 11.5 - 1 3.9 second(s). The reference range was not used to int erpret this result as normal/abnormal . INR (test code = 6301-6) 1.11 0.90-1.10 H Lab Interpretation (test Abnormal code = 18652-7) [facility] Clinic[facility] Viral Panel + COVID-19, Nasopharyngeal [id number] 01:19:11 Test Item Value Reference Range Interpretation Comments Adenovirus (test code = Not Detected Not Detected 3858) Coronavirus 229E (test Not Detected Not Detected code = 5349) Coronavirus HKU1 (test Detected Not Detected A code = 5350) Coronavirus NL63 (test Not Detected Not Detected code = 5351) Coronavirus OC43 (test Not Detected Not Detected code = 5352) COVID19 (SARS-CoV-2) Not Detected Not Detected (test code = 90625-2) Human Metapneumovirus Not Detected Not Detected (test code = 6401) Human Not Detected Not Detected Rhinovirus/Enterovirus (test code = 7212) Influenza A (test code Not Detected Not Detected = 5618) Influenza A H1 (test Not Detected Not Detected code = 5619) Influenza A H1 2009 Not Detected Not Detected (test code = 5620) Influenza A H3 (test Not Detected Not Detected code = 5621) Influenza B (test code Not Detected Not Detected = 5622) Parainfluenza 1 (test Not Detected Not Detected code = 6779) Parainfluenza 2 (test Not Detected Not Detected code = 6780) Parainfluenza 3 (test Not Detected Not Detected code = 6781) Parainfluenza 4 (test Not Detected Not Detected code = 6782) Respiratory Syncytial Not Detected Not Detected Virus (test code = 7157) Bordetella Not Detected Not Detected Parapertussis (test code = 00935) Bordetella pertussis Not Detected Not Detected (test code = 4854) Chlamydiophila Not Detected Not Detected pneumoniae (test code = 5139) Mycoplasma pneumoniae Not Detected Not Detected (test code = 6203) PAIGE (test code = PAIGE) The BioFire RP2.1 is a real-time, nested multiplexed polymerase chain reaction test designed to simultaneously identify nucleic acids from 22 different viruses and bacteria associated with respiratory tract infection, including SARS-CoV-2, from a single nasopharyngeal swab (POST TENSIONING IRONWORKER HELPER) specimen obtained from individuals suspected of respiratory tract infections, including COVID-19. Results must be interpreted within the context of all relevant clinical and laboratory findings and should not form the sole basis for a diagnosis or treatment decision. Positive results do not rule out coninfection with other organisms. Negative results in the setting of a respiratory illness may be due to infection with pathogens that are not detected by this panel, or a lower respiratory tract infection that may not be detected by an POST T[employer]IONING IRONWORKER HELPER specimen. Internal controls are used to monitor all stages of the test process and assess for possible amplification inhibitors. If inhibition is detected, testing is repeated and if inhibition is confirmed the specimen is resulted as "Invalid". When an "Invalid" result occurs, it is recommended to wait 3 days before submitting a new specimen for testing if clinically indicated. This assay has been approved by the FDA for use in laboratories that have been CLIA-certified to perform moderate-complexity and high-complexity tests. The Microbiology Laboratory at [facility], CLIA Accreditation #[id number] and CAP Accreditation #[id number], verified the performance characteristics of this assay. Microbiology Laboratory at [facility] performs the assay using the [employer] System. Lab Interpretation Abnormal (test code = 07205-0) [facility] [id number] 13:32:30 Test Item Value Reference Range Interpretation Comments POC Crea (test 0.6 mg/dL 0.6-1.3 Medications, code = 72709-4) especially h ydroxyurea or supplements, such as ascorbate, c an interfere with test results causing a falsely and significantly h igher result than exp ected. If a problem is suspected with a patient's resul t, a sample should b e sent to the laborato for confirmatory te sting. Method descript ion: The i-STAT is a n analyzer used f or in vitro quantific ation of various anal ytes in whole blood. e device uses a s nuvia disposable cart ridge which contains microfabricated sensors, a francisco bration solution, fluid ics system, and a w aste chamber. Each t est cartridge conta ins chemically sens itive biosensors on a silicon chip th at are configured to p erform specific tests. The microfabricated sensors measure analyte concent ration by an electroch emical assay. POC eGFR-AA (test 121 See_Comment Normal eGF R >= 60 code = 83754-9) mL/min/1.73 m2 The eGFR is calcula lakhwnider using the CKD-E PI equation. The e GFR declines with a ge. eGFR <60 mL/min /1.73 m2 is considere d as "decreased" Thi s equation should only be used for pat ients 18 and older. According to e National Kidney Foundation's Ki dney Disease Outcome Quality Initiat ceci (KDOQI) classif ication and 2012 Kidney Disease Improvi ng Global Outcomes (KDIGO) Clinica l Practice Guidel ine, the stage of CK D should be categ orized based on estima lakhwinder GFR. Stage Desc ription GFR mL/min/1.73 m21 Kidney damage w ith normal or high GFR >=902 Kidney da mage with mild decre ase in GFR 60-893a Mil d to moderate decrea se in GFR 45-593b Mod erate to severe decre ase in GFR 30-444 Ar re decrease in GFR 15-295 Kidney failure <15 (or dialysis) [Auto mated message] The sy stem which generated this result transmit lakhwinder reference range : >=60 mL/min/1.73 m2. The reference range was not used to int erpret this result as normal/abnormal . POC eGFR-JCARLOS (test 105 See_Comment Normal eG FR >= 60 code = 36182-2) mL/min/1.73 m2 The eGFR is calcula lakhwinder using the CKD-E PI equation. The e GFR declines with a ge. eGFR <60 mL/min /1.73 m2 is considere d as "decreased" Thi s equation should only be used for pat ients 18 and older. According to e National Kidney Foundation's Ki dney Disease Outcome Quality Initiat ceci (KDOQI) classif ication and 2012 Kidney Disease Improvi ng Global Outcomes (KDIGO) Clinica l Practice Guidel ine, the stage of CK D should be categ orized based on estima lakhwinder GFR. Stage Desc ription GFR mL/min/1.73 m21 Kidney damage w ith normal or high GFR >=902 Kidney da mage with mild decre ase in GFR 60-893a Mil d to moderate decrea se in GFR 45-593b Mod erate to severe decre ase in GFR 30-444 Ar re decrease in GFR 15-295 Kidney failure <15 (or dialysis) [Auto mated message] The sy stem which generated this result transmit lakhwinder reference range : >=60 mL/min/1.73 m2. The reference range was not used to int erpret this result as normal/abnormal . POC Clean Dev Yes (test code = 6672) Performing Lab [facility] [address] [place] [employer] (test code = [facility] [address]) Clinical Lab, [address] [facility], [place], [place] [address]; Temperature Inspector: Aletha Arciniega MD [facility] [place]
[2022-03-07] MEDS ORDERED: ASPIRIN 81 MG CHEWABLE TABLET ONE (11:18)
[2022-03-07] MEDS ORDERED: ONDANSETRON 4 MG/2 ML VIAL ONE (11:19)
[2022-03-07] MEDS ORDERED: NA CHLORIDE 0.9% 500 ML ONE (11:19)
[2022-03-07] MEDS ORDERED: FENTANYL CITR 100 MCG/2 ML ONE ×2 (11:19→15:28)
[2022-03-07 11:24] LABS: Absolute Lymphocytes (CBC) 0.8 K/uL (0.7-4.9); Hematocrit 34.7 % (39.6-49.0); Lymphocytes % 4.7 % (15.3-44.8); MCV 86.2 fL (80-100); MPV 7.5 fL (7.6-11.3); RBC Red Blood Cell Count 4.02 M/uL (4.33-5.43)
[2022-03-07 11:38] LABS: Protime INR 1.31
[2022-03-07 11:50] LABS: Albumin 2.8 g/dL (3.4-5.0); Bilirubin Direct 0.3 mg/dL (0-0.2); Bilirubin Total 0.8 mg/dL (0.2-1.0); Magnesium 1.6 mg/dL (1.8-2.4); Potassium 3.3 mmol/L (3.5-5.1); Protein, Total 6.7 g/dL (6.4-8.2); Troponin High Sensitivity 3.8 pg/mL (<58.9)
[2022-03-07 11:59] LABS: Blood Morphology Comment NOT SEEN (NOT SEEN); Platelet Estimate ADEQ; White Blood Cell Scan OK (OK)
--- NOTE | 2022-03-07 12:14 | RAD REPORT ---
EXAM DESCRIPTION: RAD - Chest Single View - 03/07/2022 11:53 am CLINICAL HISTORY: CHEST PAIN COMPARISON: No comparisons FINDINGS: Lines: None. Lungs: Masslike opacity peripherally in the right upper lobe. Interstitial airspace disease at the le ft lung base. Pleural: No significant pleural effusions or pneumothorax. Cardiac: The heart size is within normal limits. Mediastinum: Within normal limits. Bones: No acute fractures. Remote appearing left-sided rib fractures. Other: None IMPRESSION: Masslike peripheral consolidation in the right upper lobe could be secondary to an under lying lung mass. A chest CT is pending. At the left lung base, interstitial and airspace disease is n oted that has a pattern more typical of pneumonia.
--- NOTE | 2022-03-07 12:58 | RAD REPORT ---
EXAM DESCRIPTION: CT - Chest For Pe Angio - 03/07/2022 12:32 pm CLINICAL HISTORY: chest pain COMPARISON: No comparisonsChest Single View dated 03/07/2022 TECHNIQUE: Dynamically enhanced 3 mm thick images of the chest were obtained during administration o f approximately 150mL Isovue 370 IV contrast. Coronal and oblique MIP reconstruction images were gene rated and reviewed. Exam utilizes a protocol to evaluate the pulmonary arterial tree. All CT scans are performed using dose optimization technique as appropriate and may include automated exposure control or mA/KV adjustment according to patient size. FINDINGS: No pulmonary emboli are identified. The aorta as imaged shows no acute or suspicious finding. No pericardial thickening or effusion. Patient has a prominent underlying COPD pattern with large bullous cavities in the each apex and each lung base. There is a focal 20 x 8 mm area of spiculation at the right apex. There is a large roughl y wedge shaped area of consolidated parenchyma in the right upper lobe. This is primarily a periphera l lung process. The involved tissue tapers as it extends toward the hilum. Interstitial thickening is seen in each lung base. There are smaller areas of consolidation involve the inferior lingula and th e medial and posterior aspect of the left lower lobe at the base. Minimal bilateral pleural effusions are present slightly worse on the left. There is some posterior gutter atelectasis. There is a 16 x 6 mm area of soft tissue opacification along the right lateral wall of the trachea at the neck base. This is probably mucus or similar expiratory secretion. A few small nonspecific mediastinal lymph nodes are present. No cardiomegaly or pericardial effusion. No chest wall masses or abnormal axillary lymphadenopathy. IMPRESSION: No pulmonary emboli identified. Large roughly wedge-shaped area of consolidated parenchyma in the right upper lobe. Pattern is more t ypical for pneumonia double malignant etiology cannot be excluded. There is no cavitation. Correlatio n is needed with any pneumonia symptoms. Much smaller areas of consolidation are seen at the left lung base involving the lingula and left low er lobe. Minimal pleural effusions are present. Focal opacification right lateral wall of the trachea the neck base is probably mucus or expiratory s ecretion.
--- NOTE | 2022-03-07 13:02 | RAD REPORT ---
EXAM DESCRIPTION: CT - Abdomen Pelvis W Contrast - 03/07/2022 12:33 pm CLINICAL HISTORY: abdominal pain COMPARISON: No comparisons TECHNIQUE: Biphasic, helical CT imaging of the abdomen and pelvis was performed following 100 ml non -ionic IV contrast. No oral contrast administered. All CT scans are performed using dose optimization technique as appropriate and may include automated exposure control or mA/KV adjustment according to patient size. FINDINGS: Lung findings are detailed in separate CT chest report. Liver and spleen are normal size with no focal lesions. No solid or cystic mass of the pancreas or pe ripancreatic tissues. There is significant dilation of the pancreatic duct in the head and body. Gall bladder is well filled but not dilated. Gallstones can be occult on CT imaging. No intrahepatic bilia ry tree dilatation. Extrahepatic biliary tree is prominent. Symmetric renal function is seen with no hydronephrosis or suspicious renal mass. No pyelonephritis o r acute parenchymal process. No bladder abnormalities. No adrenal abnormalities. No dilated bowel loops or bowel wall thickening. Moderate stool volume is present throughout colon. N o appendicitis findings. A pancreatic head or duodenal mass is not identifiable. No free air, free fl uid or inflammatory stranding. No hernia, mass or bulky lymphadenopathy. Disc and bone degenerative changes are present. No acute or pathologic bone process. IMPRESSION: No bowel obstruction, free air or surgically emergent finding identifiable. Dilated pancreatic duct with prominent extrahepatic biliary tree. No obstructing mass or stone ident ifiable. Stones can be occult.
[2022-03-07] MEDS ORDERED: CEFTRIAXONE 1000 MG/VIAL ONE (13:13)
[2022-03-07] MEDS ORDERED: AZITHROMYCIN 250 MG TAB ONE (13:13)
[2022-03-07] MEDS ORDERED: NA CHLORIDE 0.9% 1,000 ML ONE (13:13)
[2022-03-07 13:27] LABS: Urine Blood Negative (Negative); Urine Glucose Trace (Negative); Urine Protein Negative (Negative); Urine Specific Gravity 1.015 (1.005-1.030)
[2022-03-07] MEDS ORDERED: MORPHINE 4 MG/ML SYR ONE (13:45)
--- NOTE | 2022-03-07 14:01 | EDPHYS ---
Physician Documentation [facility] Name: Chato Moerno IV Age: 66 yrs Sex: Male : 1955 Arrival Date: 03/07/2022 Time: 10:45 Bed 20 Private MD: ED Physician HPI: 03/07 11:04 This 66 yrs old Male presents to ER via Wheelchair with complaints of Chest Pain, jmm Shortness Of Breath. 11:04 The patient or guardian reports chest pain that is located primarily in the substernal [facility] area. Onset: this morning. The pain does not radiate. Associated signs and symptoms: Pertinent positives: cough, shortness of breath. This is a 66-year-old male with a history of COPD, patient also states he is in remission for lung cancer greater than 6 months. Patient is not taking chemotherapy. Presents to the ER with complaints of substernal chest pain mainly on the left side which he awoke with around 8 AM this morning. Denies history of coronary artery disease. States that he did have a significant history of smoking. Patient did quit a year and a half ago. Also states having a family history of CAD. Historical: - Allergies: 10:50 No Known Allergies; iw - PMHx: 10:50 COPD; lung cancer; iw - Immunization history:: Adult Immunizations not up to date. - Social history:: Smoking status: Patient reports the use of cigarette tobacco products, smokes one pack cigarettes per day. ROS: 11:04 Constitutional: Negative for fever, chills, and weight loss. jmm 11:04 Cardiovascular: Positive for chest pain. 11:04 Respiratory: Positive for shortness of breath. 11:04 All other systems are negative. Exam: 11:04 Head/Face: atraumatic. Eyes: EOMI, no conjunctival erythema appreciated ENT: Moist jmm Mucus Membranes Neck: Trachea midline, Supple 11:04 Cardiovascular: Regular rate and rhythm. No edema appreciated Respiratory: Normal respirations, no respiratory distress appreciated Abdomen/GI: Non distended Back: Normal ROM Skin: General appearance color normal MS/ Extremity: Moves all extremities, no obvious deformities appreciated, no edema noted to the lower extremities Neuro: Awake and alert Psych: Behavior is normal, Mood is normal, Patient is cooperative and pleasant 11:04 Constitutional: The patient appears alert, awake, anxious, uncomfortable. 11:04 Chest/axilla: Inspection: normal, Palpation: tenderness, that is moderate, of the anterior aspect of left upper chest, left nipple and left breast. 11:04 Cardiovascular: Rate: normal, Rhythm: regular. Vital Signs: 10:48 BP 94 / 64; Pulse 109; Resp 20 S; Pulse Ox 100% on R/A; Weight 51.71 kg (R); iw 11:15 BP 108 / 75; Pulse 108; Resp 25 S; Pulse Ox 100% on 5 lpm NC; Pain 10/10; jg9 12:00 BP 94 / 70; Pulse 94; Resp 20 S; Pulse Ox 99% on 5 lpm NC; Pain 8/10; jg9 12:45 BP 92 / 64; Pulse 93; Resp 21 S; Temp 96.6; Pulse Ox 100% on 5 lpm NC; Pain 5/10; jg9 13:30 BP 109 / 39; Pulse 95; Resp 24 S; Pulse Ox 94% on 5 lpm NC; jg9 MDM: 11:04 Patient medically screened. [facility] 12:32 Data reviewed: vital signs, nurses notes. ED course: Based on initial VS, SIRS criteria jmm met. WBC is elevated. Source is pneumonia. ED course: IV abx initiated. 03/07 11:04 Order name: Basic Metabolic Panel; Complete Time: 11:51 [facility] 03/07 11:04 Order name: CBC with Diff; Complete Time: 11:59 [facility] 03/07 11:04 Order name: LFT's; Complete Time: 11:51 [facility] 03/07 11:04 Order name: Magnesium; Complete Time: 11:51 [facility] 03/07 11:04 Order name: NT PRO-BNP; Complete Time: 11:51 [facility] 03/07 11:04 Order name: PT-INR; Complete Time: 11:38 [facility] 03/07 11:04 Order name: Troponin HS; Complete Time: 11:51 [facility] 03/07 11:04 Order name: XRAY Chest (1 view); Complete Time: 12:26 [facility] 03/07 11:04 Order name: EKG; Complete Time: 11:05 [facility] 03/07 11:04 Order name: Cardiac monitoring; Complete Time: 11:06 [facility] 03/07 11:04 Order name: EKG - Nurse/Tech; Complete Time: 11:05 [facility] 03/07 11:04 Order name: IV Saline Lock; Complete Time: 11:15 [facility] 03/07 11:04 Order name: Labs collected and sent; Complete Time: 11:15 [facility] 03/07 11:04 Order name: O2 Per Protocol; Complete Time: 11:06 [facility] 03/07 11:04 Order name: O2 Sat Monitoring; Complete Time: 11:06 [facility] 03/07 11:28 Order name: CBC Smear Scan; Complete Time: 11:59 [facility] 03/07 11:52 Order name: CT Chest For PE Angio; Complete Time: 13:04 [facility] 03/07 11:52 Order name: CT Abd/Pelvis - IV Contrast Only; Complete Time: 13:04 [facility] 03/07 12:26 Order name: Lactate; Complete Time: 13:29 [facility] 03/07 12:26 Order name: Blood Culture Adult (2) [facility] 03/07 13:21 Order name: Urine Dipstick-Ancillary (obtain specimen); Complete Time: 13:26 [facility] 03/07 13:28 Order name: Urine Dipstick-Ancillary; Complete Time: 13:29 [facility] 03/07 13:40 Order name: SARS RAPID jg9 Administered Medications: 11:14 Drug: fentaNYL (PF) 25 mcg Route: IVP; Site: right antecubital; jg9 11:27 Follow up: Response: No adverse reaction; Pain is unchanged, physician notified jg9 11:14 Drug: NS 0.9% 500 ml Route: IV; Rate: bolus; Site: right antecubital; jg9 13:26 Follow up: IV Status: Completed infusion; IV Intake: 500ml j9 11:15 Drug: Aspirin Chewable Tablet 324 mg Route: PO; jg9 12:00 Follow up: Response: No adverse reaction j9 11:15 Drug: Zofran (Ondansetron) 4 mg Route: IVP; Site: right antecubital; jg9 12:00 Follow up: Response: No adverse reaction j9 11:30 Drug: fentaNYL (PF) 50 mcg Route: IVP; Site: right antecubital; jg9 12:15 Follow up: Response: No adverse reaction; Marked relief of symptoms; RASS: Alert and jg9 Calm (0) 13:22 Drug: Rocephin (cefTRIAXone) 1 grams Route: IV; Rate: calculated rate; Site: left [facility] antecubital; 13:22 Drug: AZITHromycin 500 mg Route: PO; jg9 13:26 Drug: NS 0.9% 1000 ml Route: IV; Rate: 1000 ml; Site: left antecubital; jg9 13:37 Drug: morphine 4 mg Route: IVP; Infused Over: 4 mins; Site: left antecubital; jg9 Disposition Summary: 03/07/22 14:01 Hospitalization Ordered Hospitalization Status: Inpatient Admission sugar Provider: Herminio Leonard [facility] Condition: Stable jmm Problem: new jmm Symptoms: have improved jmm Bed/Room Type: Standard [facility] Room Assignment: [facility] Diagnosis - Pneumonia jmm - Sepsis [facility] Forms: - Medication Reconciliation Form jmm - SBAR form [facility] Signatures: Dispatcher [employer] EDTho Lorenzo PA PA m Kristen Price, RN ELLA iw Ileana Duggan RN RN jg9
--- NOTE | 2022-03-07 14:01 | ER ---
Nurse's Notes [facility] Name: Chato Moreno IV Age: 66 yrs Sex: Male : 1955 Arrival Date: 03/07/2022 Time: 10:45 Bed 20 Private MD: Diagnosis: Pneumonia;Sepsis Presentation: 03/07 10:48 Chief complaint: Patient states: woke up with chest pain and shortness of breath, pain iw radiates up to left collar bone, hx of lung cancer that is now in remission after radiation, + cough , no fever. Coronavirus screen: Client presents with at least one sign or symptom that may indicate coronavirus-19. Ebola Screen: Patient negative for fever greater than or equal to 101.5 degrees Fahrenheit, and additional compatible Ebola Virus Disease symptoms Patient denies exposure to infectious person. Patient denies travel to an Ebola-affected area in the 21 days before illness onset. No symptoms or risks identified at this time. Initial Sepsis Screen: Does the patient meet any 2 criteria? No. Patient's initial sepsis screen is negative. Does the patient have a suspected source of infection? No. Patient's initial sepsis screen is negative. Risk Assessment: Do you want to hurt yourself or someone else? Patient reports no desire to harm self or others. Onset of symptoms was March 07, 2022. 10:48 Method Of Arrival: Wheelchair iw 10:48 Acuity: STEWART 2 iw Triage Assessment: 11:20 General: Appears uncomfortable, Behavior is anxious, crying. Pain: Complains of pain in jg9 chest. Cardiovascular: Reports chest pain, since patient reports the pain woke him up this morning. Historical: - Allergies: 10:50 No Known Allergies; iw - PMHx: 10:50 COPD; lung cancer; iw - Immunization history:: Adult Immunizations not up to date. - Social history:: Smoking status: Patient reports the use of cigarette tobacco products, smokes one pack cigarettes per day. Screenin:19 Abuse screen: Denies threats or abuse. Denies injuries from another. Nutritional jg9 screening: patient appears very thin-Hx of lung CA currently in remission per patient. Tuberculosis screening: No symptoms or risk factors identified. Fall Risk None identified. Assessment: 11:22 Pain: Pain began patient reports that he woke up in 10/10 pain. jg9 12:00 Reassessment: Patient states symptoms have improved. jg9 Vital Signs: 10:48 BP 94 / 64; Pulse 109; Resp 20 S; Pulse Ox 100% on R/A; Weight 51.71 kg (R); iw 11:15 BP 108 / 75; Pulse 108; Resp 25 S; Pulse Ox 100% on 5 lpm NC; Pain 10/10; jg9 12:00 BP 94 / 70; Pulse 94; Resp 20 S; Pulse Ox 99% on 5 lpm NC; Pain 8/10; jg9 12:45 BP 92 / 64; Pulse 93; Resp 21 S; Temp 96.6; Pulse Ox 100% on 5 lpm NC; Pain 5/10; jg9 13:30 BP 109 / 39; Pulse 95; Resp 24 S; Pulse Ox 94% on 5 lpm NC; jg9 ED Course: 10:45 Patient arrived in ED. am2 10:49 Triage completed. iw 10:50 Arm band placed on. iw 10:53 Tho Zamora PA is PHCP. [facility] 11:05 Ileana Duggan, ELLA is Primary Nurse. jg9 11:05 EKG done, by ED staff, reviewed by Tho SEGOVIA. em1 11:15 Inserted saline lock: 22 gauge in right antecubital area, using aseptic technique. jg9 Blood collected. 11:20 Patient has correct armband on for positive identification. Bed in low position. Call jg9 light in reach. Client placed on continuous cardiac and pulse oximetry monitoring. NIBP monitoring applied. 11:20 Oxygen administration via nasal cannula \T\ 5L/min Response to oxygen therapy: symptoms jg9 improved. 11:55 XRAY Chest (1 view) In Process Unspecified. EDMS 12:15 Resting quietly. jg9 12:34 CT Chest For PE Angio In Process Unspecified. EDMS 12:34 CT Abd/Pelvis - IV Contrast Only In Process Unspecified. EDMS 13:57 Herminio Leonard MD is Hospitalizing Provider. m Administered Medications: 11:14 Drug: fentaNYL (PF) 25 mcg Route: IVP; Site: right antecubital; jg9 11:27 Follow up: Response: No adverse reaction; Pain is unchanged, physician notified jg9 11:14 Drug: NS 0.9% 500 ml Route: IV; Rate: bolus; Site: right antecubital; jg9 13:26 Follow up: IV Status: Completed infusion; IV Intake: 500ml jg9 11:15 Drug: Aspirin Chewable Tablet 324 mg Route: PO; jg9 12:00 Follow up: Response: No adverse reaction jg9 11:15 Drug: Zofran (Ondansetron) 4 mg Route: IVP; Site: right antecubital; jg9 12:00 Follow up: Response: No adverse reaction jg9 11:30 Drug: fentaNYL (PF) 50 mcg Route: IVP; Site: right antecubital; jg9 12:15 Follow up: Response: No adverse reaction; Marked relief of symptoms; RASS: Alert and jg9 Calm (0) 13:22 Drug: Rocephin (cefTRIAXone) 1 grams Route: IV; Rate: calculated rate; Site: left 9 antecubital; 13:22 Drug: AZITHromycin 500 mg Route: PO; jg9 13:26 Drug: NS 0.9% 1000 ml Route: IV; Rate: 1000 ml; Site: left antecubital; jg9 13:37 Drug: morphine 4 mg Route: IVP; Infused Over: 4 mins; Site: left antecubital; jg9 Intake: 13:26 IV: 500ml; Total: 500ml. jg9 Outcome: 14:01 Decision to Hospitalize by Provider. michelle Signatures: Dispatcher [employer] EDMS Tho Zamora PA PA jmm Williams, Irene, RN RN iw Martinez, Eric em1 Ada Butler am2 Ileana Duggan RN RN jg9 Corrections: (The following items were deleted from the chart) 10:50 10:48 BP 94 / 64; Pulse 109bpm; Resp 20bpm; Spontaneous; Pulse Ox 100% RA; beto pérez 13:16 12:00 BP 94 / 70; Pulse 94bpm; Resp 20bpm; Spontaneous; Pulse Ox 99% RA; Pain 8/10; jg9 jg9
[2022-03-07 14:50] LABS: SARS-CoV-2 Antigen Rapid Res Negative (Negative)
[2022-03-07] MEDS ORDERED: ONDANSETRON 4 MG/2 ML VIAL IV PRN (14:53)
[2022-03-07] MEDS ORDERED: ACETAMINOPHEN 500 MG TAB PO PRN (14:53)
[2022-03-07] MEDS ORDERED: NA CHLORIDE 0.9% 100 ML ONE (14:57)
[2022-03-07] MEDS ORDERED: Levofloxacin 750mg IV 750 MG/150 ML BAG IV ONE (14:57)
[2022-03-07] MEDS ORDERED: CEFEPIME 2 GM VIAL ONE (14:57)
[2022-03-07] MEDS: Levofloxacin 750mg IV 750 MG/150 ML BAG IV SCH (15:00)
--- NOTE | 2022-03-07 16:45 | P.HP ---
Certification for Inpatient Patient admitted to: Inpatient With expected LOS: >2 Midnights Patient will require the following post-hospital care: None Practitioner: I am a practitioner with admitting privileges, knowledge of patient current condition, hospital course, and medical plan of care. Services: Services provided to patient in accordance with Admission requirements found in Title 42 Section 412.3 of the Code of Federal Regulations Patient History Date of Service: 03/07/22 Reason for admission: DYSPNEA; RESPIRATORY DISTRESS Allergies No Known Allergies Allergy (Verified 03/07/22 18:33) Home Medications: Buprenorphine/Nalox 0.5 film SL TID 03/07/22 Megestrol [Megace*] 40 mg PO BID 03/07/22 Midodrine HCl [Proamatine*] 5 mg PO BID 03/07/22 Quetiapine [Seroquel*] 75 mg PO BEDTIME 03/07/22 Review of Systems 10-point ROS is otherwise unremarkable Physical Examination - Vital Signs Temperature: 98 F Blood Pressure: 140/70 Pulse: 80 Respirations: 22 Pulse Ox (%): 94 - Physical Exam General: Alert, In no apparent distress HEENT: Atraumatic, PERRLA, Mucous membr. moist/pink, EOMI, Sclerae nonicteric Neck: Supple, 2+ carotid pulse no bruit, No LAD, Without JVD or thyroid abnormality Respiratory: Clear to auscultation bilaterally, Normal air movement Cardiovascular: Regular rate/rhythm, Normal S1 S2 Gastrointestinal: Normal bowel sounds, No tenderness Musculoskeletal: No tenderness Integumentary: No rashes Neurological: Normal gait, Normal speech, Normal strength at 5/5 x4 extr, Normal tone, Normal affect Lymphatics: No axilla or inguinal lymphadenopathy - Studies Laboratory Data (last 24 hrs) 03/07/22 11:13: PT 14.5 H, INR 1.31 03/07/22 11:13: WBC 17.30 H, Hgb 11.5 L, Hct 34.7 L, Plt Count 270 03/07/22 11:13: Sodium 138, Potassium 3.3 L, BUN 7, Creatinine 0.84, Glucose 169 H, Magnesium 1.6 L, Total Bilirubin 0.8, AST 8 L, ALT 11 L, Alkaline Phosphatase 81 Assessment & Plan - Problems (Diagnosis) (1) Pneumonia Current Visit: Yes Status: Acute (2) Sepsis Current Visit: Yes Status: Acute (3) COPD (chronic obstructive pulmonary disease) Current Visit: Yes Status: Acute - Plan 1. Continue with IV antibiotics 2. Awaiting sputum and blood culture 3. Repeat chest x-ray 4. Will proceed with CT scan of the chest if pneumonia is not improved to evaluate for postobstructive pneumonia 5. Respiratory isolation is not needed 6. Continue with nebs as needed 7. O2 per protocol 8. Continue with gentle hydration 9. Repeat labs including CBC and renal function in a.m. 10. GI and DVT prophylaxis - Advance Directives Does patient have a Living Will: No Does patient have a Durable POA for Healthcare: No
[2022-03-07 18:16] VITALS: BMI 17.8
[2022-03-07] MEDS ORDERED: HYDROCODONE/APAP 5/325 MG TAB PO ONE (19:00)
[2022-03-07] MEDS: ALBUTEROL 2.5 MG/3 ML NEB SOL NEB SCH (19:25)
[2022-03-07] MEDS: IPRATROPIUM BROM 0.5MG/2.5ML NEB SCH (19:25)
[2022-03-07] MEDS: METHYLPREDNISOLONE 125 MG INJ IV SCH ×2 (19:27→23:36)
[2022-03-07] MEDS: NA CHLORIDE 0.9% 1,000 ML IV SCH (19:28)
[2022-03-07] MEDS ORDERED: MORPHINE 2 MG/ML SYR IV PRN (19:57)
[2022-03-07] MEDS: ENOXAPARIN 40 MG/0.4 ML SQ SCH (20:21)
[2022-03-07] MEDS ORDERED: ALPRAZOLAM 0.5 MG TABLET PO PRN (21:08)
[2022-03-07] MEDS: CEFEPIME 2 GM in NA CHLORIDE 0.9% 100 ML IV SCH (21:42)
[2022-03-08] MEDS: MIDODRINE HCL 5 MG TABLET PO SCH ×3 (00:21→20:30)
[2022-03-08] MEDS ORDERED: ALBUMIN HUMAN 25% 100 ML IV ONE (00:41)
[2022-03-08] MEDS: NA CHLORIDE 0.9% 1,000 ML IV SCH ×5 (01:33→23:00)
[2022-03-08] MEDS: IPRATROPIUM BROM 0.5MG/2.5ML NEB SCH ×4 (01:35→20:24)
[2022-03-08] MEDS: ALBUTEROL 2.5 MG/3 ML NEB SOL NEB SCH ×4 (01:35→20:24)
[2022-03-08] MEDS ORDERED: HYDROCODONE/APAP 5/325 MG TAB PO ONE (02:17)
[2022-03-08] MEDS ORDERED: NA CHLORIDE 0.9% 1,000 ML IV SCH (03:00)
[2022-03-08] MEDS ORDERED: FENTANYL CITR 100 MCG/2 ML IV ONE (04:09)
[2022-03-08 04:18] LABS: Absolute Lymphocytes (CBC) 0.3 K/uL (0.7-4.9); Hematocrit 28.1 % (39.6-49.0); Lymphocytes % 2.1 % (15.3-44.8); MCV 87.5 fL (80-100); MPV 7.8 fL (7.6-11.3); RBC Red Blood Cell Count 3.22 M/uL (4.33-5.43)
[2022-03-08 04:46] LABS: ALT/SGPT < 10 U/L (12-78); AST/SGOT 5 U/L (15-37); Albumin 2.6 g/dL (3.4-5.0); Alkaline Phosphatase 54 U/L (45-117); BUN Blood Urea Nitrogen 8 mg/dL (7-18); Bicarbonate 22 mmol/L (21-32); Bilirubin Total 0.5 mg/dL (0.2-1.0); Glomerular Filtration Rate 98 ml/min (=/>90); Glucose Level 205 mg/dL (74-106); HDL Cholesterol 40 mg/dL (40-60); LDL Cholesterol, Calculated 18 mg/dL (<130); Magnesium 1.5 mg/dL (1.8-2.4); NT PRO-BNP 1663 pg/mL (<125); Potassium 2.6 mmol/L (3.5-5.1); Protein, Total 5.6 g/dL (6.4-8.2); Sodium Level 144 mmol/L (136-145); Thyroid Stimulating Hormone 0.068 uIU/mL (0.360-3.740)
[2022-03-08] MEDS ORDERED: KCL 20 MEQ/100 mL IVPB 20 MEQ/100 ML BAG IV SCH (05:00)
[2022-03-08] MEDS ORDERED: DIPHENHYDRAMINE 50 MG/ML VIAL IV ONE (05:02)
[2022-03-08] MEDS ORDERED: LORazepam 2 MG/ML VIAL IV ONE (05:03)
[2022-03-08] MEDS: METHYLPREDNISOLONE 125 MG INJ IV SCH ×3 (05:09→20:31)
--- NOTE | 2022-03-08 05:38 | P.PN ---
Date of Service: 03/08/22 I received several calls throughout the night regarding this patient- demanding pain and sleeping medications. He has been very rude to the nursing staff. I have tried to be accommodating of his pain, but his blood pressure has been very soft despite fluids, midodrine, and albumin. I spoke with patient at 0530 and he calmed down after an extensive conversation.
[2022-03-08] MEDS: KCL 20 MEQ/100 mL IVPB 20 MEQ/100 ML BAG IV SCH ×2 (07:53→11:04)
[2022-03-08] MEDS ORDERED: NA CHLORIDE 0.9% 250 ML IV ONE ×2 (08:00→12:52)
[2022-03-08] MEDS: BUPRENORPHINE SL SCH ×4 (09:00→21:00)
[2022-03-08] MEDS: [UNRECOGNIZED DRUG - OTHER] SL SCH ×4 (09:00→21:00)
[2022-03-08] MEDS: CEFEPIME 2 GM in NA CHLORIDE 0.9% 100 ML IV SCH (09:00)
[2022-03-08] MEDS: MEGESTROL 40 MG TAB PO SCH ×2 (10:16→20:30)
[2022-03-08] MEDS: ENOXAPARIN 40 MG/0.4 ML SQ SCH (10:16)
[2022-03-08] MEDS ORDERED: Magnesium Sulfate 2gm IVPB 2 G/50 ML BAG IV ONE (11:00)
[2022-03-08] MEDS: FENTANYL CITR 100 MCG/2 ML IV PRN ×2 (11:02→20:34)
[2022-03-08] MEDS ORDERED: QUETIAPINE 25 MG TAB PO ONE (12:00)
[2022-03-08] MEDS ORDERED: Oxycodone HCl/Acetaminophen 1 TAB TAB PO PRN (12:43)
--- NOTE | 2022-03-08 12:46 | P.CNS ---
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 and was treated at [facility] with radiation chemotherapy and prophylactic cranial radiation of sudden onset of severe chest discomfort and respiratory distress and was admitted to the hospital he does have a history of COPD denies any fever or chills no lower extremity edema he continues to complain of significant amount of chest pain no pulmonary embolism were identified no evidence of clinical sep sis although his white count was a little elevated Allergies No Known Allergies Allergy (Verified 03/07/22 18:33) Home Medications: Buprenorphine/Nalox 0.5 film SL TID 03/07/22 Megestrol [Megace*] 40 mg PO BID 03/07/22 Midodrine HCl [Proamatine*] 5 mg PO BID 03/07/22 Quetiapine [Seroquel*] 75 mg PO BEDTIME 03/07/22 - Past Medical/Surgical History -: copd -: lung cancer -: History of coronavirus infection patient was placed on a ventilator - Social History Smoking Status: Current every day smoker CD- Drugs: No Caffeine use: No Review of Systems 10-point ROS is otherwise unremarkable General: Weakness Respiratory: Cough, Shortness of Breath Cardiovascular: Chest Pain Physical Examination Temp Pulse Resp BP Pulse Ox 97.3 F 84 20 94/62 98 03/08/22 11:52 03/08/22 11:52 03/08/22 11:52 03/08/22 11:52 03/08/22 11:52 General: Alert, Oriented x3, Moderate distress Neck: Supple Respiratory: Clear to auscultation bilaterally Cardiovascular: Regular rate/rhythm, Normal S1 S2 Gastrointestinal: Normal bowel sounds, Soft and benign Musculoskeletal: No clubbing, No contractures - Problems (1) Chest pain Current Visit: Yes Status: Acute Plan: Patient is 66 years of age admitted with severe chest pain respiratory distress came on rather suddenly has been treated for presumed small cell cancer as per patient with radiation chemotherapy and prophylactic brain radiation with a history of COPD quit smoking when he was diagnosed with with the lung cancer. Also developed coronavirus infection last year and was placed on a ventilator and recovered from that labs all reviewed mildly hypokalemic he does have a right upper lobe filtrate of changes I suspect is radiation induced change is mostly peripheral wedge-shaped of an infection pleural-based agree with antibiotic steroids not sure why is got chest pain he may have metastatic disease to his rib cage dilated pancreatic duct on CT of the abdomen stable for discharge once pain is controlled patient has an inhaler at home for his COPD Qualifiers: Chest pain type: chest pain on breathing Qualified Code(s): R07.1 - Chest pain on breathing; R07.81 - Pleurodynia
--- NOTE | 2022-03-08 13:57 | EKG ---
Test Date: 2022-03-07 Test Time: 11:04:38 Caregivers Non Medical: LEATHA MEASUREMENT RESULTS: Intervals: Rate: 107 LA: 150 QRSD: 76 QT: 336 QTc: 448 Watson: P: 68 LA: 150 QRS: 61 T: 77 INTERPRETIVE STATEMENTS: Sinus tachycardia Otherwise normal ECG No previous ECG available for comparison Electronically Signed On 03-08-22 13:55:47 CDT by Larry Aly
[2022-03-08] MEDS: Levofloxacin 750mg IV 750 MG/150 ML BAG IV SCH (15:01)
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
[2022-03-08] MEDS: QUETIAPINE 25 MG TAB PO SCH (20:33)
[2022-03-08] MEDS: ZOLPIDEM TARTRATE 5 MG TABLET PO PRN (23:16)
[2022-03-09] MEDS: KCL 20 MEQ/100 mL IVPB 20 MEQ/100 ML BAG IV SCH ×3 (00:26→03:45)
[2022-03-09] MEDS: ALBUTEROL 2.5 MG/3 ML NEB SOL NEB SCH ×4 (01:42→20:20)
[2022-03-09] MEDS: IPRATROPIUM BROM 0.5MG/2.5ML NEB SCH ×4 (01:42→20:20)
[2022-03-09] MEDS: NA CHLORIDE 0.9% 1,000 ML IV SCH ×3 (06:13→19:00)
[2022-03-09 07:41] LABS: Absolute Lymphocytes (CBC) 0.5 K/uL (0.7-4.9); Hematocrit 26.7 % (39.6-49.0); Lymphocytes % 3.3 % (15.3-44.8); MCV 85.6 fL (80-100); MPV 8.2 fL (7.6-11.3); RBC Red Blood Cell Count 3.12 M/uL (4.33-5.43)
--- NOTE | 2022-03-09 07:41 | RAD REPORT ---
EXAM DESCRIPTION: RAD - Chest Single View - 03/09/2022 5:36 am CLINICAL HISTORY: pneumonia COMPARISON: Chest Single View dated 03/07/2022; Chest For Pe Angio dated 03/07/2022 FINDINGS: Lines: None. Lungs: Consolidative airspace disease at the right upper lobe is unchanged. Nodularity at the left sahara ng base is also similar. Pleural: No significant pleural effusions or pneumothorax. Cardiac: The heart size is within normal limits. Mediastinum: Within normal limits. Bones: No acute fractures. Other: None IMPRESSION: No significant change in aeration lungs compared with 03/07/2022. Findings likely repres ent pneumonia but longer-term imaging follow-up is recommended of the right upper lobe process.
[2022-03-09 08:15] LABS: Albumin 2.2 g/dL (3.4-5.0); Bilirubin Total 0.2 mg/dL (0.2-1.0); Folic Acid, (Folate) 4.8 ng/mL (3.1-17.5); Magnesium 2.1 mg/dL (1.8-2.4); Potassium 3.4 mmol/L (3.5-5.1); Protein, Total 5.4 g/dL (6.4-8.2)
[2022-03-09 08:26] LABS: Blood Morphology Comment NOT SEEN (NOT SEEN); Platelet Estimate ADEQ
[2022-03-09] MEDS: METHYLPREDNISOLONE 125 MG INJ IV SCH (09:00)
[2022-03-09] MEDS: BUPRENORPHINE SL SCH ×3 (09:00→21:00)
[2022-03-09] MEDS: MIDODRINE HCL 5 MG TABLET PO SCH ×2 (09:00→21:18)
[2022-03-09] MEDS: [UNRECOGNIZED DRUG - OTHER] SL SCH ×3 (09:00→21:00)
[2022-03-09] MEDS: MEGESTROL 40 MG TAB PO SCH ×2 (10:13→21:19)
[2022-03-09] MEDS: ENOXAPARIN 40 MG/0.4 ML SQ SCH (10:13)
[2022-03-09] MEDS: FENTANYL CITR 100 MCG/2 ML IV PRN ×3 (12:47→21:19)
[2022-03-09] MEDS ORDERED: VANCOMYCIN 1.25 GM in NA CHLORIDE 0.9% 250 ML IVPB ONE (13:00)
[2022-03-09] MEDS: VANCOMYCIN 1.25 GM in NA CHLORIDE 0.9% 250 ML IVPB SCH (13:07)
[2022-03-09] MEDS ORDERED: predniSONE 20 MG TAB PO SCH (21:00)
[2022-03-09] MEDS: QUETIAPINE 25 MG TAB PO SCH (21:18)
[2022-03-09] MEDS: ZOLPIDEM TARTRATE 5 MG TABLET PO PRN (21:19)
[2022-03-10] MEDS: VANCOMYCIN 1.25 GM in NA CHLORIDE 0.9% 250 ML IVPB SCH (01:11)
[2022-03-10] MEDS: NA CHLORIDE 0.9% 1,000 ML IV SCH ×2 (01:15→05:00)
[2022-03-10] MEDS: ALBUTEROL 2.5 MG/3 ML NEB SOL NEB SCH ×2 (02:41→07:43)
[2022-03-10] MEDS: IPRATROPIUM BROM 0.5MG/2.5ML NEB SCH ×2 (02:41→07:43)
[2022-03-10 05:00] LABS: Potassium 3.3 mmol/L (3.5-5.1)
[2022-03-10] MEDS: FENTANYL CITR 100 MCG/2 ML IV PRN (05:24)
[2022-03-10] MEDS ORDERED: VANCOMYCIN 1 GM in NA CHLORIDE 0.9% 250 ML IVPB SCH (07:00)
[2022-03-10] MEDS ORDERED: FOLIC ACID 5 MG/ML VIAL IVP ONE (07:30)
[2022-03-10] MEDS ORDERED: FOLIC ACID 1 MG TABLET PO ONE (08:00)
[2022-03-10 08:48] VITALS: O2SAT 93
[2022-03-10] MEDS ORDERED: POTASSIUM CL SA 10 MEQ TAB PO ONE (09:00)
[2022-03-10] MEDS ORDERED: CYANOCOBALAMIN 1,000 MCG TAB PO SCH (09:00)
[2022-03-10 09:45] VITALS: BP 126/77; TEMP 98.4
[2022-03-10] MEDS ORDERED: levoFLOXacin 750 MG TAB PO SCH (15:00)
== END 2022-03-10 14:09 | disposition home or self-care (01) | DRG 871 ==
LOC: ER 10:42 → ERHOLD 14:53 → 4TH 18:38
PROVIDERS: ADMIT Hospitalist; ATTEND Hospitalist
DX: A41.9 Sepsis, unspecified organism (principal); J18.9 Pneumonia, unspecified organism; J44.0 Chronic obstructive pulmonary disease with (acute) lower respiratory infection; J44.1 Chronic obstructive pulmonary disease with (acute) exacerbation; R06.03 Acute respiratory distress; E87.6 Hypokalemia; Z86.16 Personal history of COVID-19; Z87.891 Personal history of nicotine dependence; Z85.118 Personal history of other malignant neoplasm of bronchus and lung; Z20.822 Contact with and (suspected) exposure to COVID-19
CPT/HCPCS: 36415; 71045; 71275; 74177; 80048; 80053; 80061; 80076; 81003; 82607; 82746; 83540; 83605; 83735; 83880; 84100; 84132; 84145; 84439; 84443; 84484; 85025; 85610; 87040; 87070; 87077; 87186; 87205; 87811; 93005; 94760; 99284; J0692; J1200; J1650; J2270; J2405; J2930; J3010; J3370; J3475; J3480; J7030; J7040; J7050; J7512; P9047; Q9967

== ENCOUNTER 2022-03-23 11:08 | Inpatient (IN) | payer OTHER ==
--- OUTSIDE RECORDS SUMMARY | 2022-03-23 11:15 | XMS REPORT | Clinical Summary ---
:1955 Author Organization [facility] Address [address] [place] [address] Care Team Providers Name Role Phone Carl [...] Aspiration into care/ buttocks). lower respiratory tract lidocaine Swish and 100 mL 0 03/02/20 [...] of for nausea or right lung vomiting. QUEtiapine 3 tablets (75 270 tablet 1 03/07/20 Disc ontinued (SEROquel) 25 mg mg) by feeding (Reorder) tabletIndications: tube route at Aspiration into bedtime. lower respiratory tract baclofen (LIORESAL) Take 1/2 tablet 30 tablet 0 03/08/2003/02 Discontinued 10 mg (5 mg) PO q12 [...] Discontinued ate (Augmentin) 875 (875 mg) by 021 (Reorder) mg-125 mg per mouth twice tabletIndications: daily. Upper respiratory infection, not otherwise specified amoxicillin-clavulan Take 1 tablet 20 tablet 0 06/27/2008/14 Discontinued ate (Augmentin) 875 (875 mg) by 022 mg-125 mg per mouth twice tabletIndications: daily. Upper respiratory infection, not otherwise specified acetaminophen-codein Take 1 tablet by 60 tablet 0 06/27/20 Discontinued e (TYLENOL #3) 300 mouth every 4 21 022 mg-30 mg (four) hours as tabletIndications: needed (pain). Chronic pain due to malignant neoplastic disease OLANZapine (ZyPREXA) Take 1 tablet 60 tablet 0 07/02/1909/07 Discontinued 2.5 mg (2.5 mg) by (Stop Ta tristen at tabletIndications: mouth 2 (two) Discharge) Insomnia, not times a day as otherwise specified needed for sleep or non-violent agitation. QUEtiapine Take 3 tablets 90 tablet 1 07/11/19 Disc ontinued (SEROquel) 25 mg (75 mg) by mouth 022 (Reorder) tabletIndications: at bedtime. Adjustment disorder with mixed anxiety and depressed mood pantoprazole Take 1 tablet 90 tablet 3 07/11/19 Dis continued (PROTONIX) 40 mg EC (40 mg) by mouth 022 tabletIndications: daily. Aspiration into lower respiratory tract memantine (Namenda) 5 mg a day x 1 60 tablet 6 08/13/1909/07 Discontinued 10 mg week, then 5 mg 022 (Sto p Taking at tabletIndications: twice daily x 1 Discharge) Small cell week, then 10 mg carcinoma, NOS of every am and 5 upper lobe, lung mg every pm x 1 <Right> week, then 10 mg twice daily for 6 months HYDROcodone-acetamin Take 1 tablet by 100 tablet 0 08/14/19 0 Discontinued ophen ([place]) 5 mouth every 6 22 022 (Reorder) mg-325 mg per (six) hours [...] 100 tablet 0 08/18/19 0 Discontinued ophen ([place]) 5 mouth every 6 22 022 (Stop Taking at mg-325 mg per [...] Discontinued ate (Augmentin) 875 (875 mg) by 022 (Reorder) mg-125 mg per mouth twice tabletIndications: daily for 5 Decompensated COPD days. with acute exacerbation amoxicillin-clavulan Take 1 tablet 14 tablet 0 10/12/1910/24 Discontinued ate (Augmentin) 875 (875 mg) by 022 (Stop Taking at mg-125 mg per mouth twice Disc harge) tabletIndications: daily for 7 Upper respiratory days. infection, not otherwise specified fluconazole Take 1 tablet 4 tablet 0 10/26/19 Expi red (Diflucan) 200 mg (200 mg) by 022 tabletIndications: mouth daily for Candidal esophagitis 4 days. QUEtiapine Take 1 tablet 60 tablet 0 12/02/19 Disco ntinued (SEROquel) 25 mg (25 mg) by mouth 022 (Reorder) tabletIndications: every 6 (six) Anxiety disorder due hours as needed to a general medical for non-violent condition agitation (anxiety sleep). Active Problems Problem Noted Date Anemia in malignant neoplastic disease 10/16/2021 Swallowing painful 10/15/2021 Overview: Added automatically from request for rosa maria shah [id number] Community acquired pneumonia 09/03/2021 Small cell carcinoma of lung 05/17/2021 Overview: Added automatically from request for rosa maria shah [id number] Family education about pain management 05/08/2021 History of radiation therapy 02/16/2021 Pressure-induced deep tissue damage of other site 02/2021 Overview: Site: Coccyx Sepsis 01/04/2021 Pulmonary embolism 11/17/2020 Stage 1 pressure ulcer of other site 11/14/2020 Overview: Left ear- stage 1-synthetic cloth binding cutter related from nasal cannula Tube feeding diet 10/21/2020 Pneumonia due to other Gram-negative bacteria 10/20/19 21 Sequelae of hyperalimentation 10/08/2020 Adverse effect of [...] 08/10/2020 Decompensated COPD with acute exacerbation 07/30/2020 [facility] current use of opiate analgesic 07/30/2020 Small [...] induced diabetes mellitus with hyperglycemia 09/19/2020 09/04/2021 [facility] current use of systemic steroid 09/19/2020 09/04/2021 Pneumocystosis pneumonia 09/04/2020 09/04/2021 Cytomegalovirus infection 09/04/2020 09/04/2021 Diarrhea 08/21/2020 09/04/2021 Aspiration into lower respiratory tract 08/10/2020 09/04/2021 Overview: Added automatically from request for rosa maria shah [id number] COVID-19 07/29/2020 09/04/2021 Amaurosis fugax 10/26/2017 09/04/2021 Cancer-related fatigue 09/04/2021 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 Tomography - chest abnormal 09/04/2021 Encounters Date Type Specialty Care Team Description 12/28/2021 Nurse Triage Constantine Willis NP 12/28/2021 Documentation Thoracic Medicine Henrique Plasencia MD 12/20/2021 Telephone Lolita Gonzales, ELLA 12/11/2021 Telephone Radiation Bibiana Pedersen, RN 12/05/2021 Telephone Thoracic Medicine Kasie Mehta, RN 12/01/2021 Nurse Triage Erin Olivares RN 11/13/2021 Orders Only Thoracic Medicine Amber Upper resp iratory MADALYN Douglas infection, no t otherwise speci fied (Primary Dx) 11/13/2021 Telephone Thoracic Medicine Daisy Shaffer, ELLA 11/02/2021 Orders Only Thoracic Medicine Fito Gutierres Upper resp iratory MD Kang infection, not otherwise speci fied (Primary Dx) 11/02/2021 Nurse Triage Karishma Chu RN 10/24/2021 Nurse Triage Arcadio Paz RN 10/19/2021 Surgery Endoscopy Edwige Leonard UPPER GASTROI NTESTINAL MD Ernesto ENDOSCOPY OF ESOPHAGUS, STOM ACH, AND DUODENUM WI TH BIOPSY 10/19/2021 Anesthesia Event Endoscopy Jenise Degroot MD Silva, Jason M, BRYANT 10/18/2021 Prep for Surgery Endoscopy Shena Valladares MD (Primary Dx) 10/15/2021 Hospital Encounter GIM/Phase 1 Verónica Thakkar Pleuriti c pain (Primary Dx); - Small cell carcinoma of lung; 10/24/2021 Thelma Bender, Decompensate d COPD with acute exacerbation; DO Swallowing painful; Jluis, Ed, Pneumocystosis pneumonia; Tod Tolentino V., Adjustment d isorder with mixed anxiety and depressed mood; Gastroesophageal reflux disease; Alexus, Pneumonia due t o other Gram-negative bacteria; Michlele Carr, Failure to t hrive; MD Ally young 10/15/2021 Travel 10/11/2021 Orders Only Thoracic Medicine Amber, Upper resp iratory infection, not otherwise specified (Primary Dx); MADALYN Douglas Decompensated COPD with acute exacerbation 10/10/2021 Orders Only Thoracic Medicine Shantal Patiño, Decompe nsated COPD MD Deshawn with acute exacerbation (P rimary Dx) 10/10/2021 Nurse Triage Stella Moran RN 10/10/2021 Telephone Thoracic Medicine Ileana Thrasher RN 09/07/2021 Travel 09/03/2021 Hospital Encounter Uro/Ortho/GI Faiz, Verónica, Pleuriti c pain (Primary Dx); - [...] 08/18/2021 Orders Only Thoracic Medicine Henrique Plasencia ell carcinoma, NOS of upper lobe, lung <Right>; MD Nickie Adjustment diso rder with mixed anxiety and depressed mood 08/17/2021 Telephone Thoracic Medicine Zulema Cedillo RN 08/14/2021 Office Visit German Piedra, Actinic keratos is (Primary Dx); MD Kang Personal histor y of other malignant neoplasm of skin 08/14/2021 Office Visit Thoracic Medicine Henrique Plasencia c ell carcinoma, NOS of upper lobe, lung <Right>; MD Nickie Adjustment diso rder with mixed anxiety and depressed mood 08/14/2021 Orders Only Pulmonology Ailyn Banda FNP (Primary Dx) 08/14/2021 Orders Only Thoracic Medicine Sarah Duckworth c ell carcinoma, M, BICYCLE INSPECTOR NOS of upper lo be, lung <Right> (P rimary Dx) 08/14/2021 Travel 08/13/2021 Hospital Encounter Radiation Ronan Marr MD Non-sma ll cell lung Oncology cancer <Unspeci fied side> 08/13/2021 Hospital Encounter Radiology Nicole Del Rosario Non-small cell lung Chunyi, ONELIA cancer <Unspeci fied side> 08/13/2021 Orders Only Radiation Nicole Del Rosario Small cell carc inoma, Oncology Chunyi, BICYCLE INSPECTOR NOS of upper lo be, lung <Right> 08/13/2021 Travel 08/11/2021 Refill Thoracic Medicine Henrique Plasencia ent disorder VMD Yancy with mixed anxi ety and depressed mood 08/07/2021 Orders Only Abdirizak Ruiz, Personal his tory of MD other malignant neoplasm of ski n (Primary Dx) 07/27/2021 Telephone Radiation Jarrett, Oncology Génesis Ann RN 07/27/2021 Refill Thoracic Medicine Amber, Aspiration into lower Stella, ANP respiratory t ract 07/26/2021 Telephone Thoracic Medicine jyoti Manzo ts (see Génesis Trevino, RN documenation) 07/26/2021 Orders Only Radiation Andrea, Oncology ONELIA Mejia 07/26/2021 Refill Thoracic Medicine Amber, Upper resp iratory Stella, ANP infection, no t otherwise speci fied 07/19/2021 Telephone Thoracic Medicine Daisy Shaffer RN 07/12/2021 Telephone Thoracic Medicine Stella Clark, ANP 07/11/2021 Orders Only Thoracic Medicine Amber, Adjustment disorder with mixed anxiety and depressed mood (Primary Dx); MADALYN Douglas Aspiration in to lower respiratory tract 07/11/2021 Telephone Thoracic Medicine Ileana Thrasher RN 07/02/2021 Orders Only Thoracic Medicine Amber, Insomnia, not Stella, ANP otherwise spe cified 06/27/2021 Orders Only Thoracic Medicine Amber, Upper resp iratory infection, not otherwise specified; MADALYN Douglas Chronic pain due to malignant neoplastic disease 06/25/2021 Orders Only Thoracic Medicine Stella Clark ANP 06/14/2021 Telephone Lolita Gonzales RN 06/11/2021 Orders Only Thoracic Medicine Amber Upper resp iratory infection, not otherwise specified (Primary Dx); MADALYN Douglas Small cell ca rcinoma, NOS of upper lobe, lung <Right> 06/09/2021 Refill Thoracic Medicine Yudith Rivas Upper r espiratory D, RN infection, not otherwise speci fied 06/06/2021 Telephone Thoracic Medicine Jyoti Manzo RN 05/21/2021 Surgery Endoscopy Neha Tobin, REPLACEMENT O F GASTROSTOMY TUB E, PERCUTANEOUS, I NCLUDES REMOVAL, WHEN PERFORMED, WITH OUT IMAGING OR ENDO SCOPIC GUIDANCE; NOT REQUIRING ROSA ION OF GASTROSTOMY TRA CT 05/21/2021 Hospital Encounter Endoscopy Neha Tobin MD 05/21/2021 Travel 05/17/2021 Prep for Surgery Endoscopy Elmira Lanier benita l carcinoma N, EDUCATIONAL PARAPROFESSIONAL of lung <Right side> (Primary Dx) 05/17/2021 Orders Only Thoracic Medicine Amber, Muscle spa sm of back (Primary Dx); MADALYN Douglas Anxiety, not otherwise specified; Small cell carc inoma of upper lobe of right lung 05/16/2021 Orders Only Thoracic Medicine Amber Small cell carcinoma MADALYN Douglas of lung <Righ t side> (Primary Dx) 05/16/2021 Telephone Lolita Gonzales RN 05/16/2021 Telephone Lolita Gonzales RN 05/14/2021 Orders Only Giovanna Orellana Basal cell carc inoma MD Flores of nose (Primar y Dx) 04/27/2021 Orders Only Thoracic Medicine Amber, Insomnia, not MADALYN Douglas otherwise spe cified (Primary Dx) 04/25/2021 Orders Only Thoracic Medicine Amber, Adjustment disorder with anxiety; MADALYN Dogulas Muscle spasm of back 04/23/2021 Hospital Encounter Radiation Ronan Marr MD Small c ell carcinoma, Oncology NOS of upper lo be, lung <Right> 04/23/2021 Orders Only Radiation Nicole Del Rosario Non-small cell lung Oncology Chunyi, BICYCLE INSPECTOR cancer <Unspeci fied side> (Primary Dx) 04/23/2021 Orders Only Radiation Del Rosario, Nicole Small cell carc inoma, Oncology Chunyi, BICYCLE INSPECTOR NOS of upper lo be, lung <Right> 04/23/2021 Orders Only Radiation Del Rosario, Nicole Oncology Chunyi, BICYCLE INSPECTOR 04/23/2021 Orders Only Radiation Del Rosario, Nicole Non-small cell lung Oncology Chunyi, BICYCLE INSPECTOR cancer <Unspeci fied side> (Primary Dx) 04/23/2021 Travel 04/20/2021 Hospital Encounter Radiology Henrique Plasencia Small cell carcinoma VYancy, NOS of upper lo be, lung <Right> 04/20/2021 Ancillary Procedure Radiology Henrique Plasencia Small cell carcinoma, VYancy, NOS of upper lo be, lung <Right> 04/20/2021 Travel 04/16/2021 Hospital Encounter Speech Pathology Hinson, 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 Office Visit Hematology Kang Monreal, Other pulmon donte CARDENAS embolism with a cute cor pulmonale [...] astic disease 04/04/2021 Refill Thoracic Medicine Sarika Sung, Small ce ll carcinoma, REPORT PROGRAMMER NOS of upper lo be, lung <Right> 04/03/2021 Nutrition Nutrition Alina Marr, Decompensated COPD with acute exacerbation; RD Aspergillosis w ith pneumonia 03/30/2021 Orders Only Thoracic Medicine Stella Clark ANP 03/29/2021 Orders Only Thoracic Medicine Amber Muscle spa sm of back; MADALYN Douglas Aspiration in to lower respiratory tract 03/27/2021 Orders Only Thoracic Medicine Amber, Upper resp iratory infection, not otherwise specified (Primary Dx); MADALYN Douglas Adjustment di sorder with anxiety; Chronic pain du e to malignant neoplastic disease 03/27/2021 Refill Thoracic Medicine Santillan, Chronic pa in due to malignant neoplastic disease; Nanette Stewart EDUCATIONAL PARAPROFESSIONAL Adjustment dis order with anxiety after 03/23/2021 Immunizations Name Administration Dates Next Due Bamlanivimab 07/29/2020 () Influenza Split High Dose 03/29/2020 Preservative Free IM Zoster Recombinant 03/29/2020 remdesivir 08/22/2020, 08/22/2020, 08/21/2020, 08/20/2020, 08/19/2020, 08/18/2020, 08/03/2020, 08/02/2020, 08/02/2020, 08/01/2020, 07/31/2020, 07/30/2020 Surgical History Surgery Date Site/Laterality Comments NM EGD BALLOON DILATION 09/29/2020 Esophagus/N/A Procedur e: UPPER ESOPHAGUS <30 MM DIAM GASTROINTE STINAL ENDOSCOPY WITH BALLOON DILATION OF ESOPHAGUS; Surgeon: Owen real MD; Location: MAIN E NDOSCOPY; Service: GASTROE NTEROLOGY NM EGD PERCUTANEOUS 09/29/2020 Abdomen/N/A Procedure: U PPER PLACEMENT GASTROSTOMY TUBE GASTR OINTESTINAL ENDOSCOPY WITH DIRECTED PLACEME NT OF PERCUTANEOUS (PE G) GASTROSTOMY TUBE; Surgeon: Desiree Leonard MD; Location: MAIN E NDOSCOPY; Service: GASTROE NTEROLOGY NM BRNCHSC W/BRNCL ALVEOLAR 10/23/2020 N/A Proc edure: FLEXIBLE LAVAGE BRONCHOSCOPY WIT H BRONCHIAL ALVEOLAR LAVAGE; Surgeon: Krys Brewer MD; Lo cation: MAIN PULM PROC; Servi ce: PULMONARY NM PERQ REPLACEMENT GTUBE 05/21/2021 N/A Proced ure: REPLACEMENT OF NOT REQ REVJ GSTRST TRC GASTROST RANDEE TUBE, PERCUTANEOUS, INCLUDES REMOVAL , WHEN PERFORMED, WITHO UT IMAGING OR ENDOSCOPIC DENNIS NCE; NOT REQUIRING REVISI ON OF GASTROSTOMY TRAC T; Surgeon: Neha Tobin MD ; Location: MAIN ENDOSCOPY; Service: GASTROENTEROLOGY NM EGD TRANSORAL BIOPSY 10/19/2021 Esophagus/N/A Procedur e: [...] 10/15/2021 9:57 AM CDT Plan of Treatment Date Type Specialty Care Team Description 04/08/2022 Office Visit Kang Chaudhary MD [address] [place], [place] [address] (Wo rk) Health Maintenance Due Date Last Done Comments [...] results section. MANUAL DIFFERENTIAL AM 10/24/2021 5:53 Resu lts for this [...] results section. FRACTIONATED BILIRUBIN AM 10/18/2021 4:25 Re sults for this AM CDT procedure [...] section. TOTAL PROTEIN AM 10/17/2021 3:59 Results fo r this AM CDT procedure [...] Now 10/16/2021 8:05 Re sults for this BICYCLE INSPECTOR SWAB AM CDT procedure are i n [...] 09/05/2021 5:48 Re sults for this AM DIRECTOR FAMILY procedure are i n the results section. TOTAL PROTEIN AM 09/05/2021 5:48 Results for this AM DIRECTOR FAMILY procedure are i n the results section. ASPARTATE AM 09/05/2021 5:48 Results for this AMINOTRANSFERASE AM DIRECTOR FAMILY procedure a re in the results section. ALANINE AMINOTRANSFERASE AM 09/05/2021 5:48 Results for this AM DIRECTOR FAMILY procedure are i n the results section. ALKALINE PHOSPHATASE AM 09/05/2021 5:48 Resu lts for this AM DIRECTOR FAMILY procedure are i n the results section. ALBUMIN LEVEL AM 09/05/2021 5:48 Results for this AM DIRECTOR FAMILY procedure are i n the results section. CALCIUM LEVEL TOTAL AM 09/05/2021 5:48 Resul ts for this AM DIRECTOR FAMILY procedure are i n the results section. .GLOMERULAR FILTRATION AM 09/05/2021 5:48 Re sults for this RATE AM DIRECTOR FAMILY procedure are i n the results section. SERUM CREATININE AM 09/05/2021 5:48 Results for this AM DIRECTOR FAMILY procedure are i n the results section. ELECTROLYTE PANEL AM 09/05/2021 5:48 Results for this AM DIRECTOR FAMILY procedure are i n the results section. BLOOD UREA NITROGEN AM 09/05/2021 5:48 Resul ts for this AM DIRECTOR FAMILY procedure are i n the results section. GLUCOSE LEVEL AM 09/05/2021 5:48 Results for this AM DIRECTOR FAMILY procedure are i n the results section. MANUAL DIFFERENTIAL AM 09/05/2021 5:48 Resul ts for this AM DIRECTOR FAMILY procedure are i n the results section. Results CBC AM 09/05/2021 5:48 Results for this AM DIRECTOR FAMILY procedure are i n the results section. PHOSPHORUS LEVEL AM 09/05/2021 5:48 Results for this AM DIRECTOR FAMILY procedure are i n the results section. MAGNESIUM LEVEL AM 09/05/2021 5:48 Results f or this AM DIRECTOR FAMILY procedure are i n the results section. COMPREHENSIVE METABOLIC AM 09/05/2021 5:48 PANEL AM DIRECTOR FAMILY COMPLETE BLOOD COUNT W/ AM 09/05/2021 5:48 DIFFERENTIAL AM DIRECTOR FAMILY STREPTOCOCCAL URINE Routine 09/04/2021 1:38 Resul ts for this ANTIGEN PATH REVIEW PM DIRECTOR FAMILY procedur e are in the results section. LEGIONELLA URINE ANTIGEN Routine 09/04/2021 1:38 Results for this PATH REVIEW PM DIRECTOR FAMILY procedure are i n the results section. LEGIONELLA URINE ANTIGEN Now 09/04/2021 1:38 Results for this PM DIRECTOR FAMILY procedure are i n the results section. STREPTOCOCCUS PNEUMONIAE Now 09/04/2021 1:38 Results for this URINE ANTIGEN PM DIRECTOR FAMILY procedure are in the results section. LOWER RESPIRATORY Now 09/04/2021 1:36 Results for this CULTURE W/ GRAM STAIN PM DIRECTOR FAMILY proced ure are in the results section. CALCIUM LEVEL TOTAL AM 09/04/2021 3:51 Resul ts for this AM DIRECTOR FAMILY procedure are i n the results section. .GLOMERULAR FILTRATION AM 09/04/2021 3:51 Re sults for this RATE AM DIRECTOR FAMILY procedure are i n the results section. SERUM CREATININE AM 09/04/2021 3:51 Results for this AM DIRECTOR FAMILY procedure are i n the results section. ELECTROLYTE PANEL AM 09/04/2021 3:51 Results for this AM DIRECTOR FAMILY procedure are i n the results section. BLOOD UREA NITROGEN AM 09/04/2021 3:51 Resul ts for this AM DIRECTOR FAMILY procedure are i n the results section. GLUCOSE LEVEL AM 09/04/2021 3:51 Results for this AM DIRECTOR FAMILY procedure are i n the results section. TROPONIN T Routine 09/04/2021 3:51 Results for this AM DIRECTOR FAMILY procedure are i n the results section. PHOSPHORUS LEVEL AM 09/04/2021 3:51 Results for this AM DIRECTOR FAMILY procedure are i n the results section. MAGNESIUM LEVEL AM 09/04/2021 3:51 Results for this AM DIRECTOR FAMILY procedure are i n the results section. BASIC METABOLIC PANEL, AM 09/04/2021 3:51 CALCIUM TOTAL AM DIRECTOR FAMILY CKMB Now 09/03/2021 9:49 Results for this PM DIRECTOR FAMILY procedure are i n the results section. CREATINE KINASE Now 09/03/2021 9:49 Results f or this PM DIRECTOR FAMILY procedure are i n the results section. TROPONIN T Now 09/03/2021 9:49 Results for this PM DIRECTOR FAMILY procedure are i n the results section. CT CHEST PULMONARY Routine 09/03/2021 9:46 Result s for this EMBOLISM W CONTRAST PM DIRECTOR FAMILY procedur e are in the results section. XR CHEST 1 VW Routine 09/03/2021 5:40 Results for this PM DIRECTOR FAMILY procedure are i n the results section. RESPIRATORY VIRAL PANEL Now 09/03/2021 5:14 R esults for this + COVID-19, PM DIRECTOR FAMILY procedure are i n NASOPHARYNGEAL SWAB the resu lts section. FRACTIONATED BILIRUBIN Now 09/03/2021 3:54 Re sults for this PM DIRECTOR FAMILY procedure are i n the results section. TOTAL PROTEIN Now 09/03/2021 3:54 Results for this PM DIRECTOR FAMILY procedure are i n the results section. ASPARTATE Now 09/03/2021 3:54 Results for this AMINOTRANSFERASE PM DIRECTOR FAMILY procedure a re in the results section. ALANINE AMINOTRANSFERASE Now 09/03/2021 3:54 Results for this PM DIRECTOR FAMILY procedure are i n the results section. ALKALINE PHOSPHATASE Now 09/03/2021 3:54 Resu lts for this PM DIRECTOR FAMILY procedure are i n the results section. ALBUMIN LEVEL Now 09/03/2021 3:54 Results for this PM DIRECTOR FAMILY procedure are i n the results section. CALCIUM LEVEL TOTAL Now 09/03/2021 3:54 Resul ts for this PM DIRECTOR FAMILY procedure are i n the results section. .GLOMERULAR FILTRATION Now 09/03/2021 3:54 Re sults for this RATE PM DIRECTOR FAMILY procedure are i n the results section. SERUM CREATININE Now 09/03/2021 3:54 Results for this PM DIRECTOR FAMILY procedure are i n the results section. ELECTROLYTE PANEL Now 09/03/2021 3:54 Results for this PM DIRECTOR FAMILY procedure are i n the results section. BLOOD UREA NITROGEN Now 09/03/2021 3:54 Resul ts for this PM DIRECTOR FAMILY procedure are i n the results section. GLUCOSE LEVEL Now 09/03/2021 3:54 Results for this PM DIRECTOR FAMILY procedure are i n the results section. MANUAL DIFFERENTIAL STAT 09/03/2021 3:54 Resul ts for this PM DIRECTOR FAMILY procedure are i n the results section. Results CBC STAT 09/03/2021 3:54 Results for this PM DIRECTOR FAMILY procedure are i n the results section. TROPONIN T Now 09/03/2021 3:54 Results for this PM DIRECTOR FAMILY procedure are i n the results section. NT PRO BNP Now 09/03/2021 3:54 Results for this PM DIRECTOR FAMILY procedure are i n the results section. PHOSPHORUS LEVEL Now 09/03/2021 3:54 Results for this PM DIRECTOR FAMILY procedure are i n the results section. MAGNESIUM LEVEL Now 09/03/2021 3:54 Results f or this PM DIRECTOR FAMILY procedure are i n the results section. COMPREHENSIVE METABOLIC Now 09/03/2021 3:54 PANEL PM DIRECTOR FAMILY COMPLETE BLOOD COUNT W/ Now 09/03/2021 3:54 DIFFERENTIAL PM DIRECTOR FAMILY EKG, 12-LEAD (PORTABLE) STAT 09/03/2021 CT CHEST W CONTRAST Routine 08/13/2021 8:15 Non-small cell Res ults for this AM DIRECTOR FAMILY lung cancer procedure are i n <Unspecified the results side> section. POC CREATININE Routine 08/13/2021 7:30 Results fo r this AM DIRECTOR FAMILY procedure are i n the results section. REPLACEMENT OF 05/21/2021 10:50 Small cell GASTROSTOMY TUBE, PM DIRECTOR FAMILY carcinoma of lung PERCUTANEOUS, INCLUDES <Right side> [...] lobe, lung the results <Right> section. after 03/23/2021 Results .Serum Creatinine (10/24/2021 5:53 AM CDT)Only the most recent of12 results within the time period is included. athologist Signature Creatinine 0.81 0.67 - 1.17 [facility] mg/dL [facility] Specimen Anatomical Collection Method Collection Time Receive d Time (Source) Location / / Volume Laterality Blood 10/24/2021 5:53 AM 2 6:21 CDT AM CDT Tod Tolentino MD LAB BLOOD ORDERABLES Performing Organization Address City/State/ZIP Code Phon e Number [facility] CANCER Unless otherwise noted, [place] [address] [place] all lab tests performed by: Division of Pathology and Laboratory Medicine [id number] (ABNORMAL) .CBC (10/24/2021 5:53 AM CDT)Only the most recent of11 resultswithin the time period is included. athologist Signature WBC 11.5 (H) 4.0 - 11.0 [facility] RBC 4.25 (L) 4.50 - [place] MD 6.00 M/[facility] Hgb 12.1 (L) 14.0 - [place] 18.0 gm/dL [facility] Hct 38.9 (L) 40.0 - [place] 54.0 % [facility] MCV 92 82 - 98 [facility] MCH 28.5 27.0 - [place] MD 31.0 pg [facility] MCHC 31.1 31.0 - [place] 36.0 gm/dL [facility] RDW-SD 57.5 (H) 35.1 - [place] MD 46.[address] [facility] RDW-CV 17.4 (H) 12.0 - [place] MD 15.5 % [facility] Platelet count 313 140 - 440 [facility] MPV 8.8 4.0 - 10.4 [facility] INRBC 0.2 (H) <=0.0 % [facility] Comment: The INRBC (instrument NRBC) value reflec [...] 5:53 AM 2 6:16 CDT AM CDT Tod Tolentino MD LAB BLOOD ORDERABLES Performing Organization Address City/State/ZIP Code Phon e Number [place] [facility] Unless otherwise noted, [place] [address] CENTER all lab tests performed by: Division of Pathology and Laboratory Medicine [address] Glomerular Filtration Rate (10/24/2021 5:53 AM CDT)Only the most recent of12 resultswithin the time period is included. P athologist Signature eGFR-AA 107 >=60 [place] MD PERRY mL/min/1.73 [facility] sq. m Comment: Normal eGFR: >= [...] <15 eGFR-JCARLOS 93 >=60 mL/min/1.73 sq. m [place] MD Ramírez [facility] Comment: Normal eGFR: >= 60 [...] 5:53 AM 2 6:21 CDT AM CDT Tod Tolentino MD LAB BLOOD ORDERABLES Performing Organization Address City/[facility] Phon e Number [facility] CANCER Unless otherwise noted, [address] all lab tests performed by: Division of Pathology and Laboratory Medicine [address] [place] [address] Fractionated Bilirubin (10/24/2021 5:53 AM CDT)Only the most recent of11 results within the time period is included. athologist [facility] Bili Total <0.3 <=1.2 mg/dL [facility] Comment: Direct and indirect bilirubin will not [...] 5:53 AM 2 6:21 CDT AM CDT Tod Tolentino MD LAB BLOOD ORDERABLES Performing Organization Address [facility] Phon e Number [facility] CANCER Unless otherwise noted, [address] all lab tests performed by: Division of Pathology and Laboratory Medicine [address] [place] [address] (ABNORMAL) Differential (10/24/2021 5:53 AM CDT)Only the most recent of11 resultswithin the time period is included. athologist [facility] Total Cells 100 [facility] Neutrophil % 63.0 42.0 - 66.0 [facility] Comment: The Neutrophil count includes B ands. Lymphocyte % 20.0 (L) 24.0 - 44.0 % [facility] Monocyte % 9.0 (H) 2.0 - 7.0 % [facility] Eosinophil % 2.0 1.0 - 4.0 % [facility] Metamyelocyte % 6.0 (H) <=0.0 % [facility] Comment: The Metamyelocyte count include s Myelocytes. NRBC 1.0 (H) <=0.0 [place] MD [place] [facility] Neutrophil Abs 7.25 1.70 - 7.30 K/uL [place] MD REAL [facility] Lymphocyte Abs 2.30 1.00 - 4.80 K/uL [place] MD REAL [facility] Monocyte Abs 1.04 (H) 0.08 - 0.70 K/uL [place] MD [facility] Eosinophil Abs 0.23 0.04 - 0.40 K/uL [place] MD REAL [facility] RBC Morph Present (A) Normal [place] [facility] [place] Morph Normal Normal OK [facility] R [place] Anisocytosis Present (A) Not Present [place] MD ANNIKA Zimmerman [facility] [place] Poik Present (A) Not Present [place] MD [place] Trevino [facility] [place] Polychromasia Present (A) Not Present [place] MD MEDINA [facility] Ovalocyte Present (A) Not Present [place] MD [place] Trevino [facility] [place] Tear Drop Present (A) Not Present [place] MD [place] Trevino [facility] Specimen Anatomical Collection Method Collection Time Receive d Time (Source) Location / / Volume Laterality Blood 10/24/2021 5:53 AM 2 6:16 CDT AM CDT Tod Tolentino MD LAB BLOOD ORDERABLES Performing Organization Address City/[facility] Code Phon e Number [facility] CANCER Unless otherwise noted, [address] all lab tests performed by: Division of Pathology and Laboratory Medicine [address] [place] [address] BUN (10/24/2021 5:53 AM CDT)Only the most recent of12 resultswithin the time period is included. P athologist Signature BUN 15 6 - 23 [facility] mg/dL [facility] Specimen Anatomical Collection Method Collection Time Receive d Time (Source) Location / / Volume Laterality Blood 10/24/2021 5:53 AM 2 6:21 CDT AM CDT Tod Tolentino MD LAB BLOOD ORDERABLES Performing Organization Address City/[facility] Phon e Number [facility] CANCER Unless otherwise noted, [address] all lab tests performed by: Division of Pathology and Laboratory Medicine [address] [place] [address] ALT (10/24/2021 5:53 AM CDT)Only the most recent of11 resultswithin the time period is included. P athologist Signature ALT 14 <=41 U/L [facility] Specimen Anatomical Collection Method Collection Time Receive d Time (Source) Location / / Volume Laterality Blood 10/24/2021 5:53 AM 2 6:21 CDT AM CDT Tod Tolentino MD LAB BLOOD ORDERABLES Performing Organization Address City/[facility]/ZIP [facility] Phon e Number [facility] CANCER Unless otherwise noted, [address] all lab tests performed by: Division of Pathology and Laboratory Medicine [address] Aspartate Aminotransferase (10/24/2021 5:53 AM CDT)Only the most recent of11 resultswithin the time period is included. P athologist Signature AST 14 <=40 U/L [facility] Specimen Anatomical Collection Method Collection Time Receive d Time (Source) Location / / Volume Laterality Blood 10/24/2021 5:53 AM 2 6:21 CDT AM CDT Tod Tolentino MD LAB BLOOD ORDERABLES Performing Organization Address City/[facility] Phon e Number [facility] CANCER Unless otherwise noted, [address] all lab tests performed by: Division of Pathology and Laboratory Medicine [address] (ABNORMAL) Total Protein (10/24/2021 5:53 AM CDT)Only the most recent of11 resultswithin the time period is included. P athologist Signature Total Protein 6.3 (L) 6.4 - 8.3 [facility] g/dL [facility] Specimen Anatomical Collection Method Collection Time Receive d Time (Source) Location / / Volume Laterality Blood 10/24/2021 5:53 AM 2 6:21 CDT AM CDT Tod Tolentino MD LAB BLOOD ORDERABLES Performing Organization Address City/[facility]/ZIP [facility] Phon e Number [facility] CANCER Unless otherwise noted, [address] all lab tests performed by: Division of Pathology and Laboratory Medicine [address] Phosphorus Level (10/24/2021 5:53 AM CDT)Only the most recent of12 resultswithin the time period is included. athologist Signature Phosphorus 3.4 2.5 - 4.5 [facility] mg/dL [facility] Specimen Anatomical Collection Method Collection Time Receive d Time (Source) Location / / Volume Laterality Blood 10/24/2021 5:53 AM 2 6:21 CDT AM CDT Tod Tolentino MD LAB BLOOD ORDERABLES Performing Organization Address City/[facility] Phon e Number [facility] CANCER Unless otherwise noted, [address] all lab tests performed by: Division of Pathology and Laboratory Medicine [address] Alkaline Phosphatase (10/24/2021 5:53 AM CDT)Only the most recent of11 results within the time period is included. athologist Signature Alk Phos 59 40 - 129 [facility] U/L [facility] Specimen Anatomical Collection Method Collection Time Receive d Time (Source) Location / / Volume Laterality Blood 10/24/2021 5:53 AM 2 6:21 CDT AM CDT Tod Tolentino MD LAB BLOOD ORDERABLES Performing Organization Address City/[facility] Phon e Number [facility] CANCER Unless otherwise noted, [address] all lab tests performed by: Division of Pathology and Laboratory Medicine [address] Magnesium Level (10/24/2021 5:53 AM CDT)Only the most recent of12 resultswithin the time period is included. athologist Signature Magnesium 2.1 1.6 - 2.6 [facility] mg/dL [facility] Specimen Anatomical Collection Method Collection Time Receive d Time (Source) Location / / Volume Laterality Blood 10/24/2021 5:53 AM 2 6:21 CDT AM CDT Tod Tolentino MD LAB BLOOD ORDERABLES Performing Organization Address City/[facility] Phon e Number [facility] CANCER Unless otherwise noted, [address] all lab tests performed by: Division of Pathology and Laboratory Medicine [address] (ABNORMAL) Glucose Level (10/24/2021 5:53 AM CDT)Only the most recent of12 resultswithin the time period is included. athologist Signature Glucose Level 105 (H) 70 - 99 [facility] mg/dL [facility] Comment: Effective 01/24/16, the glucose reference intervals have been updated based on [place] [employer] guidelines (Standards of Medical Care [...] 5:53 AM 2 6:21 CDT AM CDT Tod Tolentino MD LAB BLOOD ORDERABLES Performing Organization Address City/State/ZIP [facility] Phon e Number [facility] CANCER Unless otherwise noted, [address] all lab tests performed by: Division of Pathology and Laboratory Medicine [address] Calcium Level (10/24/2021 5:53 AM CDT)Only the most recent of12 resultswithin the time period is included. athologist Signature Calcium Lvl 9.1 8.4 - 10.2 [facility] mg/dL [facility] Specimen Anatomical Collection Method Collection Time Receive d Time (Source) Location / / Volume Laterality Blood 10/24/2021 5:53 AM 2 6:21 CDT AM CDT Tod Tolentino MD LAB BLOOD ORDERABLES Performing Organization Address City/State/[facility] Phon e Number [facility] CANCER Unless otherwise noted, [address] all lab tests performed by: Division of Pathology and Laboratory Medicine [address] Albumin Level (10/24/2021 5:53 AM CDT)Only the most recent of11 resultswithin the time period is included. P athologist Signature Albumin Lvl 3.6 3.5 - 5.2 [facility] gm/dL [facility] Specimen Anatomical Collection Method Collection Time Receive d Time (Source) Location / / Volume Laterality Blood 10/24/2021 5:53 AM 2 6:21 CDT AM CDT Tod Tolentino MD LAB BLOOD ORDERABLES Performing Organization Address City/[facility]/ZIP [facility] Phon e Number [facility] CANCER Unless otherwise noted, [address] all lab tests performed by: Division of Pathology and Laboratory Medicine [facility] [address] Electrolyte Panel (10/24/2021 5:53 AM CDT)Only the most recent of12 results within the time period is included. [facility] Sodium Lvl 141 136 - 145 [facility] mEq/L [facility] Potassium Lvl 4.3 3.5 - 5.1 [facility] mEq/L [facility] Chloride 106 98 - 107 [facility] mEq/L [facility] CO2 23 22 - 29 [facility] mEq/L [facility] Anion Gap 12 4 - 14 [facility] mEq/L [facility] Specimen Anatomical Collection Method Collection Time Receive d Time (Source) Location / / Volume Laterality Blood 10/24/2021 5:53 AM 2 6:21 CDT AM CDT Tod Tolentino MD LAB BLOOD ORDERABLES Performing Organization Address City/[facility] Phon e Number [facility] CANCER Unless otherwise noted, [address] all lab tests performed by: Division of Pathology and Laboratory [facility] ([facility] IgG Subclasses (10/22/2021 6:48 AM CDT) [facility] IgG Total-Hart 830 767 - 1590 [place] MD [place] mg/dL [facility] IgG1-Hart 418 341 - 894 [place] MD [place] mg/dL [facility] IgG2-Hart 157 (L) 171 - 632 [facility] mg/dL [facility] IgG3-Hart 56.8 18.4 - [place] MD [place] 106.0 [facility] mg/dL IgG4-Hart 8.8 2.4 - [place] MD [place] 121.0 [facility] mg/dL Comment: Test Performed by: [facility] [address] [address] [address] Professor Of Criminal Justice: Chato Johnson M.D. Ph. D.; CLIA# [id number] Specimen Anatomical Collection Method Collection Time Receive d Time (Source) Location / / Volume Laterality Blood 10/22/2021 6:48 AM 2 7:34 CDT AM CDT Tod Tolentino MD LAB BLOOD ORDERABLES Performing Organization Address City/[facility]/ZIP Code Phon e Number [facility] Unless otherwise noted, [address] all lab tests performed by: Division of Pathology and Laboratory Medicine [facility] [employer] IgA (10/22/2021 6:48 AM CDT) athologist Signature IgA 191 85 - 499 [facility] mg/dL [facility] Specimen Anatomical Collection Method Collection Time Receive d Time (Source) Location / / Volume Laterality Blood 10/22/2021 6:48 AM 2 7:15 CDT AM CDT Tod Tolentino MD LAB BLOOD ORDERABLES Performing Organization Address City/[facility] Phon e Number [facility] Unless otherwise noted, [address] all lab tests performed by: Division of Pathology and Laboratory Medicine [facility] [employer] IgG (10/22/2021 6:48 AM CDT) P athologist Signature IgG 751 610 - 1,616 [facility] mg/dL [facility] Specimen Anatomical Collection Method Collection Time Receive d Time (Source) Location / / Volume Laterality Blood 10/22/2021 6:48 AM 2 7:15 CDT AM CDT Tdo Tolentino MD LAB BLOOD ORDERABLES Performing Organization Address City/[facility] Phon e Number [facility] Unless otherwise noted, [address] all lab tests performed by: Division of Pathology and Laboratory Medicine [facility] [employer] X-ray Chest 1 View (10/21/2021 3:44 PM [...] pneumonia though may be due to scarring. Tod Tolentino MD IMG DIAGNOSTIC IMAGING ORDER [place] Blood Culture (10/21/2021 9:09 AM CDT)Only the most recent of2 resultswithin the time period is included. Component Value Ref Test Analysis Performed At [facility] gist Range Method Time Signature Final Report No growth [facility] Path Review - Culture yield may be affecte d by sample quality, prior treatment, and transportation conditions. [place] Bottle/Isolat ... [place] or The results have been reviewed and electronically signed b y Pathologist: JOSH Mercado MD, PhD #[id number] C ENTER Specimen Anatomical Collection Method Collection Time Receive d Time (Source) Location / / Volume Laterality Blood 10/21/2021 9:09 AM 2 (Venipuncture-Le CDT 10:21 AM CD T ft) Comment: arm Tod Tolentino MD MICROBIOLOGY - GENERAL ORDER [place] Performing Organization Address City/[facility] Phon e Number [facility] CANCER Unless otherwise noted, [address] all lab tests performed by: Division of Pathology and Laboratory Medicine [address] Fungal Blood Culture (10/21/2021 9:09 AM CDT) Component Value Ref Test Analysis Performed At [facility] gist Range Method Time Signature Final Report No Fungi isolated. [facility] Path Review - Culture yield may be affecte d by sample quality, prior treatment, and transportation conditions. [place] Fungus The results have been reviewed and elect ronically signed by Pathologist: [place] ZABALA MD #[id number] C [facility] Specimen Anatomical Collection Method Collection Time Receive d Time (Source) Location / / Volume Laterality Blood 10/21/2021 9:09 AM 2 (Venipuncture-Le CDT 10:39 AM CD T ft) Comment: arm Tod Tolentino MD MICROBIOLOGY - GENERAL ORDER [place] Performing Organization Address City/[facility] Phon e Number [facility] CANCER Unless otherwise noted, [address] all lab tests performed by: Division of Pathology and Laboratory Medicine [address] EKG, 12-Lead (10/21/2021)Only the most recent of4 resultswithin the time period is included. Specimen (Source) Anatomical Location Collection Method / Collectio n Time Received Time / Laterality Volume Narrative This result has an attachment that is no t available. Tod Tolentino MD ECG ORDERABLES Performing Organization Address [...] Moderate degenerative changes of the osseous structures. Tod Tolentino MD IMG DIAGNOSTIC IMAGING ORDER [place] Pathology Biopsy Interpretation (10/19/2021 1:35 PM CDT) Component Value Ref Test Analysis Performed Pathologis t Range Method Time At Signature Submitted Swallowing painful 10/22/2021 [facility] Clinical [R13.19] 10:30 AM History CDT Diagnosis A. Esophagus, biopsy: 10/22/2021 [facility] Electronically Changes morphologically consistent with Tati esophagitis 10:30 AM signed by CDT Manuela real MD on 10/23/19 22 at 10:30 AM Gross A: 10/22/2021 [facility] Description Esophagus, esophagus r/o can dida and esophagitis: One piedra-brown fragment of soft tissue measuring 0.4 cm, admixed with probable plant material, entirely submitted in A1. GM 10:30 AM CDT Disclaimer "Some tests 10/22/2021 [facility] reported here may 10:30 AM have been CDT developed and performance characteristics determined by [facility] Pathology and Laboratory Medicine. These tests have [...] Organization Address City/State/ZIP Code Phon e Number [facility] [place] [phone] [place] [address] (ABNORMAL) POC Glucose Screen (10/18/2021 6:47 AM [...] Sample Type Capillary POC TELCOR Performing Lab [facility] POC TELCO R Comment: [facility] Clinical Lab, [address] [facility], [place] [address]; Lab Direct or: Karma Arciniega MD Specimen Anatomical Collection Method Collection Time Receive d Time (Source) Location / / Volume Laterality Blood 10/18/2021 6:47 AM 2 6:47 CDT AM CDT Tod Tolentino MD POCT ORDERABLES - DEVICE Performing Organization Address City/State/ZIP Code Phon e Number POC TELCOR Vancomycin Trough Vancomycin trough on 10/17/21@10:30AM. Nurse please coordinate with lab to draw trough approximately 11 - 11.5hours after 10/16/21 evening vanco dose. Hold vancomycin doses if trough isgreater than 20 and notify . Thanks! (10/17/2021 11:50 AM CDT) athologist Signature Vanco Trough 6.0 5.0 - 20.0 [facility] mcg/mL [facility] Comment: Toxic Trough Level: >20 mcg/mL Vanco Tr Dose Time See note [place] MD LEVI BARON [facility] Comment: Level, date, and time of previous dose i s not available for this sample. The date reported is e sample collection date. Vanco Tr Dose Date 10/17/2021 [place] MD BEAL ALONDRA [facility] Comment: Level, date, and time of previous dose i s not available for this sample. The date reported is e sample collection date. Specimen Anatomical Collection Method Collection Time Receive d Time (Source) Location / / Volume Laterality Blood 10/17/2021 11:50 10/17/2021 AM CDT 12:36 PM CDT Narrative [facility] - 2 1:05 PM CDT Vancomycin trough on 10/17/21@10:30AM. Nu rse please coordinate with lab to draw trough approximately 11 - 11.5hours after evening vanco dose. Hold vancomycin doses if trough is greater than 20 and notify . Thanks! Tod Tolentino MD LAB BLOOD ORDERABLES Performing Organization Address City/State/ZIP Code Phon e Number [facility] CANCER Unless otherwise noted, [place] [address] [place] all lab tests performed by: Division of Pathology and Laboratory Medicine [address] (ABNORMAL) Zak Price (10/17/2021 3:59 AM CDT)Only the most recent of2 resultswithin the time period is included. athologist Signature Fungitell S-V 101 (H) <80 pg/mL [facility] Comment: Interpretation: The Fungitell assay does not detect certain fungal species such as the genus Cryptococcus ( Marcelino et al. 1991) which produces very low levels of (1-3)-Beta-D -Glucan. The assay also does not detect the Zygomycetes such as Absid ia, Mucor and Rhizopus (Henrry et al. 1994) which are not know n to produce (1-3)-Ctyx-K-Husvfm. In addition, the ye ast phase of [...] cleared for in vitro diagnostic use by t U.[place] Food and Drug Administration. Modifications to the keerthi roved package insert have been made and the performance characteri stics for these modifications were determined by [employer]. If sample result is greater than 500 pg/ mL, physician may order a titer of the sample. Please contact [employer] if you would like to order a retest of this sample to obtain an actual value. Samples are held for 1 week after initia l testing date. Performed At: [facility] [id number] [place] [address] Issue Clerk: Andi Taylor Ph.D., B CLD (ABB) CLIA#: [id number] Phone: Specimen Anatomical Collection Method Collection Time Receive d Time (Source) Location / / Volume Laterality Blood 10/17/2021 3:59 AM 2 CDT 10:49 AM CDT Tod Tolentino MD MICROBIOLOGY - GENERAL ORDER [place] Performing Organization Address City/[facility] Code Phon e Number [facility] CANCER Unless otherwise noted, [address] all lab tests performed by: Division of Pathology and Laboratory Medicine [address] [place] [address] Procalcitonin (10/17/2021 3:59 AM CDT)Only the most recent of2 resultswithin the time period is included. athologist Signature Procalcitonin <0.04 <=0.08 [facility] ng/mL [facility] Comment: Procalcitonin > 2.00 [...] with extended dilution as it exceeds the content management consultant's recommended limit. Caution should be exercised when interpreting such values and done in conjunction with clinical context. Specimen Anatomical Collection Method Collection Time Receive d Time (Source) Location / / Volume Laterality Blood 10/17/2021 3:59 AM 2 5:36 CDT AM CDT Tod Tolentino MD LAB BLOOD ORDERABLES Performing Organization Address City/[facility] Phon e Number [facility] CANCER Unless otherwise noted, [address] all lab tests performed by: Division of Pathology and Laboratory Medicine [address] [place] [address] Karen [place] Modified Barium Swallow w Speech (10/16/2021 [...] Pharyngeal contraction was bilaterally weak. Procedure Note Sofya Ulloa MD - 10/16/2021Forma tting of this [...] pathology report for further details and recommendations. Tod Cordonuyen IMG FLUOROSCOPY ORDERABLES (ABNORMAL) Respiratory PCR Panel, BICYCLE INSPECTOR Swab (10/16/2021 8:05 AM CDT) [facility] Method Time Signature Adenovirus Not Not [place] MD Detected Detected [facility] Coronavirus 229E Not Not [place] MD Detected Detected [facility] Coronavirus HKU1 Not Not [place] MD Detected Detected [facility] Coronavirus NL63 Not Not [place] MD Detected Detected [facility] Coronavirus OC43 Not Not [place] MD Detected Detected [facility] Human Not Not [place] MD Metapneumovirus Detected Detected [facility] Human Detected Not [place] MD Rhinovirus/Enterov (A) Detected [facility] Influenza A Not Not [place] MD Detected Detected [facility] Influenza A H1 Not Not [place] MD Detected Detected [facility] Influenza A H1 Not Not [place] MD 2009 Detected Detected [facility] Influenza A H3 Not Not [place] MD Detected Detected [facility] Influenza B Not Not [place] MD Detected Detected [facility] Parainfluenza 1 Not Not [place] MD Detected Detected [facility] Parainfluenza 2 Not Not [place] MD Detected Detected [facility] Parainfluenza 3 Not Not [place] MD Detected Detected [facility] Parainfluenza 4 Not Not [place] MD Detected Detected [facility] Respiratory Not Not [place] MD Syncytial Virus Detected Detected [facility] Bordetella Not Not [place] MD pertussis Detected Detected [facility] Chlamydiophila Not Not [place] MD pneumoniae Detected Detected [facility] Mycoplasma Not Not [place] MD pneumoniae Detected Detected [facility] Specimen (Source) Anatomical Collection Method Collection Time Re ceived Time Location / / Volume Laterality Nasopharyngeal Swab 10/16/2021 8:05 10/18 AM CDT 8:06 AM CDT Tod Tolentino MD MICROBIOLOGY - GENERAL ORDER [place] Performing Organization Address City/State/ZIP Code Phon e Number [facility] CANCER Unless otherwise noted, [address] all lab tests performed by: Division of Pathology and Laboratory Medicine [address] [place], [place] [address]d Respiratory PCR Panel Path Review (10/16/2021 8:05 AM CDT) [facility] [place] Method Time Signature RMP NM Reviewed and Electronically signed by Pathologist: [place] MD Darnell Parikh MD, PhD #[id number] [facility] Comment: Performed by real-time PCR methodology. This assay detects presence of nucleic a dru (DNA or RNA) for the pathogens reported. A result of "Not Detected" does not excl ude the possibility of the presence of one or more pathogens at less than the detec tion limits of this assay. This assay is FDA cleared for nasopharyngeal specimens onl y. Specimen (Source) Anatomical Collection Method Collection Time Re ceived Time Location / / Volume Laterality Nasopharyngeal Swab 10/16/2021 8:05 10/18 AM CDT 8:06 AM CDT Tod Tolentino MD MICROBIOLOGY - GENERAL ORDER [place] Performing Organization Address City/[facility]/ZIP Code Phon e Number [facility] CANCER Unless otherwise noted, [address] all lab tests performed by: Division of Pathology and Laboratory Medicine [address] [place] [address] Karen MRSA Screening Culture (10/15/2021 4:25 PM CDT) Component Value Ref Test Analysis Performed At [facility] [place] Range Method Time Signature Final Report No Methicillin [facility] Staphylococcus CANCER aureus isolated. CENTER Path Review The results have been review ed and electronically signed by Pathologist: [place] MD Darnell Parikh MD, PhD #[id number] [facility] Specimen Anatomical Collection Method Collection Time Receive d Time (Source) Location / / Volume Laterality Nasal 10/15/2021 4:25 PM 6:59 CDT PM CDT Felix Bazzi MD MICROBIOLOGY - GENERAL ORDER [place] Performing Organization Address City/State/ZIP Code Phon e Number [facility] CANCER Unless otherwise noted, [address] all lab tests performed by: Division of Pathology and Laboratory Medicine [address] [facility] (ABNORMAL) Troponin T (In-House) (10/15/2021 1:15 PM CDT)Only the most recent of 5 resultswithin the time period is included. P athologist Signature Troponin T 23 (H) <=18 ng/L [facility] Comment: < 19 ng/L Suggest retest at [...] Organization Address City/State/ZIP Code Phon e Number [facility] CANCER Unless otherwise noted, [address] all lab tests performed by: Division of Pathology and Laboratory Medicine [facility] [facility] CT Chest Pulmonary Embolism with Contrast (10/15/2021 [...] Component Value Ref Test Analysis Performed At [facility] gist Range Method Time Signature Legionella Reviewed and Electronically signed by Pathologist: CRISS CARDENAS Urine Antigen Darnell Parikh MD, PhD #[id number] [place] Path Review [facility] CENTER Comment: DARNELL PARIKH MD, PhD - [id number] Dictated by: DARNELL PARIKH MD, PhD - 10 196 Dictated Date/Time: 10.17.2021 10:56 AM CDT Transcribed Date/Time: 10.17.2021 10:56 AM CDT Electronically Signed By: DARNELL PARIKH MD, PhD - [id number] on 10.17.2021 10:56 AM Specimen Anatomical Collection Method Collection Time Receive d Time (Source) Location / / Volume Laterality Urine 10/15/2021 12:17 10/16/2021 PM CDT 11:26 AM CDT Verónica Thakkar MD MICROBIOLOGY - GENERAL ORDER [place] Performing Organization Address City/State/ZIP Code Phon e Number [facility] CANCER Unless otherwise noted, [place] [address] [place] all lab tests performed by: Division of Pathology and Laboratory Medicine [address] [place] [address] [place] Streptococcal Urine Antigen Path Review (10/15/2021 12:17 PM CDT)Only the most recent of2 resultswithin the time period is included. Component Value Ref Test Analysis Performed Pathologis t Range Method Time At [facility] Streptococcal Reviewed and Electronically signed by Pathologist: CRISS CARDENAS Urine Antigen Darnell Parikh MD, PhD #[id number] [place] Path Review CAN[facility]ER CENTER Comment: DARNELL PARIKH MD, PhD - [id number] Dictated by: DARNELL PARIKH MD, PhD - 10 [phone] Dictated Date/Time: 10.16.2021 13:06 PM CDT Transcribed Date/Time: 10.16.2021 13:06 PM CDT Electronically Signed By: DARNELL PARIKH MD, PhD - [id number] on 10.16.2021 13:06 PM Specimen Anatomical Collection Method Collection Time Receive d Time (Source) Location / / Volume Laterality Urine 10/15/2021 12:17 10/16/2021 PM CDT 11:26 AM CDT Verónica Thakkar MD MICROBIOLOGY - GENERAL ORDER [place] Performing Organization Address City/State/ZIP Code Phon e Number [facility] CANCER Unless otherwise noted, [place] [id number] [place] all lab tests performed by: Division of Pathology and Laboratory Medicine [address] [place] [address] [place] Streptococcus pneumoniae Urine Antigen (10/15/2021 12:17 PM CDT)Only the most recent of2 resultswithin the time period is included. Component Value Ref Range Test Analysis Performed Pathologis t Method Time At [facility] Streptococcal Presumptive negative for S. pneumoniae antigen in the urine, suggesting no current or recent pneumococcal infection. However, infection due to S. pneumoniae cannot be completely ruled out since the leve Negative CRISS CARDENAS Urine Antigen l of antigen present in the urine may be below the [place] Interpretation detection limit of the test. CANCER CENTER Streptococcal Negative Negative CRISS CARDENAS Urine Antigen [place] Interpretation [facility] CENTER Specimen Anatomical Collection Method Collection Time Receive d Time (Source) Location / / Volume Laterality Urine 10/15/2021 12:17 10/15/2021 2:23 PM CDT PM CDT Verónica Thakkar MD MICROBIOLOGY - GENERAL ORDER [place] Performing Organization Address City/[facility] Phon e Number [facility] CANCER Unless otherwise noted, [address] all lab tests performed by: Division of Pathology and Laboratory Medicine [address] [place] [address] Legionella Urine Antigen (10/15/2021 12:17 PM CDT)Only the most recent of2 resultswithin the time period is included. Component Value Ref Test Analysis Performed At [facility] Range Method Time Signature Legionella Urine Negative for L. pneumophila serogroup 1 antigen, suggesting no recent or current infection. However, infections due to other serogroups and species of Legionella are not detected by this assay. In addition, antigen may not be present in the urine in [facility] Antigen early infection and the leve l of antigen present in the urine may be below the detection limit of the test. AN [facility] Legionella Urine Negative [facility] Antigen [facility] Specimen Anatomical Collection Method Collection Time Receive d Time (Source) Location / / Volume Laterality Urine 10/15/2021 12:17 10/15/2021 2:23 PM CDT PM CDT Verónica Thakkar MD MICROBIOLOGY - GENERAL ORDER [place] Performing Organization Address City/[facility] Phon e Number [facility] Unless otherwise noted, [address] all lab tests performed by: Division of Pathology and Laboratory Medicine [address] [place] [address] COVID-19 (SARS-CoV-2)Asymptomatic-LT (10/15/2021 10:08 AM CDT) [facility] Method [place] Signature COVID19 Not Detected Not Detected [place] (SARS-CoV-2) [facility] COVID19 SARS Inpatient [facility] Indication Admission [facility] Covid 19 See Note [facility] Comment [facility] Comment: The kacy SARS-CoV-2 nucleic acid test [...] fact sheet for patients provided by the content management consultant ([employer]) can be reviewed at: https://www.fda.gov/media/050626/downloa d. A fact sheet for Health Care providers is provided by the content management consultant ([employer]) and can be reviewed at: https://www.fda.gov/media/649822/download Results must be interpreted within the c [...] This assay has been authorized by the [facility] for use only under Emergency Use Authorization (EUA) in laboratories that have been CLIA-certified to perform moderate-complexity and high-complexity tests. [facility] [place], CLIA Accreditation #[id number] a ar CAP Accreditation #[id number], verified the performance characteristics of this assay. Internal controls are used to monitor all stages of the test process. Specimen (Source) Anatomical Collection Method Collection Time Re ceived Time Location / / Volume Laterality Nasopharyngeal Swab 10/15/2021 10:08 04/01/2022 AM CDT 10:30 AM CDT Verónica Thakkar MD MICROBIOLOGY - GENERAL ORDER [place] Performing Organization Address City/State/ZIP Code Phon e Number [facility] CANCER Unless otherwise noted, [place] [address] [place] all lab tests performed by: Division of Pathology and Laboratory Medicine [facility] [facility] (ABNORMAL) Lower Respiratory Culture w/Gram Stain (10/15/2021 10:08 AM CDT)Only the most recent of2 resultswithin the time period is included. Component Value Ref Test Analysis Performed At [facility] gist Range Method Time Signature Final Report Moderate Presumptive Streptococcus pneumoniae CRISS CARDENAS ... [place] Normal site home present. CAN CER (A) CENTER Path Review The results have been review ed and electronically signed by Pathologist: CRISS Parikh MD, PhD #[id number] [place] () [facility] Gram Stain Few WBC's seen CRISS CARDENAS Report Epithelial cells seen [place] Few Gram Positive Cocci in pairs CANCER () [place] Organism Streptococcus CRISS CARDENAS pneumoniae (A) [facility] Specimen Anatomical Collection Method Collection Time [...] Organization Address City/State/ZIP Code Phon e Number [facility] CANCER Unless otherwise noted, [address] all lab tests performed by: Division of Pathology and Laboratory Medicine [facility] [place] aPTT (10/15/2021 10:08 AM CDT) athologist [facility] aPTT 29.9 24.7 - 36.8 [facility] Specimen Anatomical Collection Method Collection Time Receive d Time (Source) Location / / Volume Laterality Blood 10/15/2021 10:08 10/15/2021 AM CDT 10:19 AM CDT Verónica Thakkar MD LAB BLOOD ORDERABLES Performing Organization Address City/State/ZIP Code Phon e Number [facility] CANCER Unless otherwise noted, [address] all lab tests performed by: Division of Pathology and Laboratory Medicine [address] [place] (ABNORMAL) NT-Pro BNP (In-House) (10/15/2021 10:08 AM CDT)Only the most recent of2 resultswithin the time period is included. athologist Signature NT ProBNP 137 (H) <=125 pg/mL [facility] Specimen Anatomical Collection Method Collection Time Receive d Time (Source) Location / / Volume Laterality Blood 10/15/2021 10:08 10/15/2021 AM CDT 11:00 AM CDT Verónica Thakkar MD LAB BLOOD ORDERABLES Performing Organization Address City/[facility]/ZIP Code Phon e Number [facility] CANCER Unless otherwise noted, [address] all lab tests performed by: Division of Pathology and Laboratory Medicine Blaise Jones (ABNORMAL) Prothrombin Time with INR (10/15/2021 10:08 AM CDT) P athologist Signature PT 13.5 11.5 - 13.9 [facility] INR 1.11 (H) 0.90 - 1.10 [facility] Specimen Anatomical Collection Method Collection Time Receive d Time (Source) Location / / Volume Laterality Blood 10/15/2021 10:08 10/15/2021 AM CDT 10:19 AM CDT Verónica Thakkar MD LAB BLOOD ORDERABLES Performing Organization Address City/[facility] Phon e Number [facility] CANCER Unless otherwise noted, [address] all lab tests performed by: Division of Pathology and Laboratory Medicine Blaise Jones (ABNORMAL) LDH (10/15/2021 10:08 AM CDT) P athologist Signature LDH 247 (H) 135 - 225 [facility] U/L [facility] Comment: Results greater than 1651 U/L m [...] MD LAB BLOOD ORDERABLES Performing Organization Address City/[facility]/ZIP Code Phon e Number [facility] CANCER Unless otherwise noted, [address] all lab tests performed by: Division of Pathology and Laboratory [facility] CKMB (10/15/2021 10:08 AM CDT)Only the most recent of2 resultswithin the time period is included. athologist [facility] CK MB 2.2 <=10.4 [place] MD PERRY ng/mL CANCER [place] Specimen Anatomical Collection Method Collection Time Receive d Time (Source) Location / / Volume Laterality Blood 10/15/2021 10:08 10/15/2021 AM CDT 11:00 AM CDT Verónica Thakkar MD LAB BLOOD ORDERABLES Performing Organization Address City/State/[facility] Phon e Number [place] CANCER Unless otherwise noted, [address] all lab tests performed by: Division of Pathology and Laboratory Medicine [address] [place] [address] Creatine Kinase (10/15/2021 10:08 AM CDT)Only the most recent of2 resultswithin the time period is included. [facility] CK 48 39 - 308 [place] U/L CANCER [place] Specimen Anatomical Collection Method Collection Time Receive d Time (Source) Location / / Volume Laterality Blood 10/15/2021 10:08 10/15/2021 AM CDT 11:00 AM CDT Verónica Thakkar MD LAB BLOOD ORDERABLES Performing Organization Address City/State/ZIP Code Phon e Number [facility] CANCER Unless otherwise noted, [address] all lab tests performed by: Division of Pathology and Laboratory Medicine [address] [place] [address] (ABNORMAL) Respiratory Viral Panel + COVID-19, Nasopharyngeal Swab (09/03/2021 5:14 PM DIRECTOR FAMILY) [facility] Method Time [facility] Adenovirus Not Not [place] Detected Detected [facility] Coronavirus 229E Not Not [place] Detected Detected [facility] Coronavirus HKU1 Detected Not UT (A) Detected [facility] Coronavirus NL63 Not Not [place] Detected Detected [facility] Coronavirus OC43 Not Not [place] Detected Detected [facility] COVID19 Not Not [place] (SARS-CoV-2) Detected Detected [facility] Human Not Not [place] Metapneumovirus Detected Detected [facility] Human Not Not [place] Rhinovirus/Enterov Detected Detected [facility] Influenza A Not Not [place] Detected Detected [facility] Influenza A H1 Not Not [place] MD Detected Detected [facility] Influenza A H1 Not Not [place] MD 2009 Detected Detected [facility] Influenza A H3 Not Not [place] MD Detected Detected [facility] Influenza B Not Not [place] MD Detected Detected [facility] Parainfluenza 1 Not Not [place] MD Detected Detected [facility] Parainfluenza 2 Not Not [place] MD Detected Detected [facility] Parainfluenza 3 Not Not [place] MD Detected Detected [facility] Parainfluenza 4 Not Not [place] MD Detected Detected [facility] Respiratory Not Not [place] MD Syncytial Virus Detected Detected [facility] Bordetella Not Not [place] MD Parapertussis Detected Detected [facility] Bordetella Not Not [place] MD pertussis Detected Detected [facility] Chlamydiophila Not Not [place] MD pneumoniae Detected Detected [facility] Mycoplasma Not Not [place] MD pneumoniae Detected Detected [facility] Specimen (Source) Anatomical Collection Method Collection Time Re ceived Time Location / / Volume Laterality Nasopharyngeal Swab 09/03/2021 5:14 09/03 PM DIRECTOR FAMILY 5:51 PM DIRECTOR FAMILY Narrative [place] MD [facility] - 7:19 PM DIRECTOR FAMILY The BioFire RP2.1 is a real-time, nested multiplexed polymerase chain reaction test designed to simul taneously identify nucleic acids from 22 different viruses and bacteria associated with respiratory tract infection, including SARS-CoV-2, from a single nasopharyngeal swab (SHIPYARD HELPER) specimen obtai missy from individuals suspected of [...] that may not be detected by an SHIPYARD HELPER specimen. Internal controls are used to [...] and high-complexity tests. The [facility] at [facility] [place], CLIA Accreditation #[id number] and CAP Accreditation #[id number], verified the per formance characteristics of this assay. [facility] performs the assay using the Adapt[employer] System. Jyoti Morales MD MICROBIOLOGY - GENERAL ORDER [place] Performing Organization Address City/State/ZIP Code Phon e Number [facility] CANCER Unless otherwise noted, [place] [address] CENTER all lab tests performed by: Division of Pathology and Laboratory Medicine [facility] [facility] CT Chest with Contrast (08/13/2021 8:15 AM DIRECTOR FAMILY) Anatomical Region Laterality Modality Chest Computed Tomography Specimen (Source) Anatomical Collection Method Collection Time Re ceived Time Location / / Volume Laterality 08/13/2021 8:41 AM DIRECTOR FAMILY Impressions 08/13/2021 8:58 AM DIRECTOR FAMILY * Stable post therapeutic changes in the right lung. No recurrent or metastatic disease. Narrative 08/13/2021 8:58 AM DIRECTOR FAMILY FULL RESULT: Examination: CT CHEST W CONTRAST, [...] lung. No recurrent or metastatic disease. Nicole Del Rosario NP IMG CT ORDERABLES POC Creatinine (08/13/2021 7:30 AM DIRECTOR FAMILY)Only the most recent of2 resultswithin the time [...] Clean Dev Yes POC TELCOR Performing Lab [facility] POC TELCO R Comment: [facility] Clinical Lab, [address] [place] [id number]; Lab Direct or: Karma Arciniega MD Specimen Anatomical Collection Method Collection Time Receive d Time (Source) Location / / Volume Laterality Blood 08/13/2021 7:30 AM 7:30 DIRECTOR FAMILY AM DIRECTOR FAMILY Nicole Del Rosario NP POCT ORDERABLES - [...] hilar and mediastinal nodes . Jackie Mendez NP IMG CT ORDERABLES MRI Brain with and [...] No acute intracranial abnormalities. Jackie Mendez NP G MRI ORDERABLES after 03/23/2021 Insurance Payer Benefit Plan / Subscriber ID Effective Phone Address T ype Group Dates [employer] [id number] 2020-Prese [address] 72 Medicare MEDICARE MEDICARE [place], [place] ADVANTAGE ADVANTAGE [id number] Guarantor Name Account Type Relation to Date of Phone Billing Patient Address Chato Moreno Personal/Family Self 1955 [id number] [facility] [address] [phone] 1 (Work) [employer] [id number] Chato Moreno Personal/Family Self 1955 [id number] [place] [address] Advance Directives Code Status Date Activated Date Inactivated Comments Full Code 10/15/2021 2:23 PM 10/24/2021 8:32 PM Full Code 09/03/2021 10:00 PM 09/07/2021 5:51 PM Full Code 02/16/2021 11:33 PM 03/02/2021 8:45 PM Full Code 01/22/2021 1:08 AM 01/30/2021 8:41 PM Full Code 01/04/2021 3:56 PM 01/19/2021 6:53 PM Care Teams Vice President Quality Improvement Relationship Specialty Start Date End Date Carl Jones MD PCP - External Primary Family Practice 02/14/20 [address] [facility] [address] [place] [id number] Henrique Plasencia MD PCP - General Thoracic Medicine 04/21/[address] [place] [id number] Kang Piedra MD PCP - External Follow Up Dermatology 06/12/[address] [place] [id number]
--- OUTSIDE RECORDS SUMMARY | 2022-03-23 11:21 | XMS REPORT | Continuity of Care Document ---
:1955 Author Organization [facility] t Address [address] [place] [address] Care Team Providers Name Role Phone Luis Angel CARDENAS, Maria Fernanda Fu Primary Care Physician SYSTEM, PROVIDER NOT IN Attending Clinician Unavailable Lazaro RN LPN CNA, Constantine Attending Clinician Luis Angel CARDENAS, Maria Fernanda Fu Attending Clinician Ger JARAMILLO, Lolita Sommer Attending Clinician Unavailable Bibiana Pedersen RN Attending Clinician Unavailable Kasie Mehta RN Attending Clinician Unavailable Erin Olivares RN Attending Clinician Stella Goodrich Attending Clinician Daisy Shaffer RN Attending Clinician Unavailable Fito Gutierres MD Attending Clinician Karishma Chu RN Attending Clinician Unavailable Bijan CARDENAS, Verónica Attending Clinician Thelma Bowser DO Attending Clinician Judy CARDENAS, Ed Attending Clinician Randa CARDENAS, Tod Fu Attending Clinician Alexus CARDENAS, Boni Carr Attending Clinician [phone] Jackson JARAMILLO, Arcadio Attending Clinician Unavailable BONI OBRIEN Attending Clinician Unavailable Aisha CARDENAS, Edwige Orozco Attending Clinician Jenise Degroot MD Attending Clinician Dhiraj Fry CRNA Attending Clinician Jacquelyn CARDENAS, Shena Gudino Attending Clinician Unavailable TOD GLASS V. Attending Clinician Unavailable MARIA FERNANDA WASHINGTON V. Attending Clinician Unavailable JUDY, BEA Attending Clinician Unavailable Shantal Patiño MD, Deshawn Attending Clinician [phone] Dean JARAMILLO, Stella Stewart Attending Clinician Unavailable Price JARAMILLO, Ileana Ann Attending Clinician Unavailable Aisha CARDENAS, Mehrdad Attending Clinician Gurpreet Estes MD Attending Clinician SOFI HART Attending Clinician Unavailable Michael Lopez RN Attending Clinician Unavailable Fab BRUNER, Lela Ramírez Attending Clinician Mamadou JARAMILLO, Zulema Ramírez Attending Clinician Unavailable Tadeo CARDENAS, Herrera Attending Clinician Solo WITT, Jacki Attending Clinician Gucci RN LPN CNA, Sarah Ybarra Attending Clinician Raymundo Marr MD Attending Clinician Nicole Del Rosario NP Attending Clinician Abdirizak Fenton MD Attending Clinician Génesis Farias RN Attending Clinician Unavailable Génesis Manzo RN Attending Clinician Unavailable Andrea ROUSSEAU, Jackie Attending Clinician Yudith Rivas RN Attending Clinician Unavailable Crista CARDENAS, Claude Attending Clinician Elmira Lanier APN Attending Clinician Giovanna Javed MD Attending Clinician Sravan [facility] STAFF ACCOUNTANT, Mary Beth Ann Attending Clinician Unavailable Rah CARDENAS, Herrera Attending Clinician Enzo PharmD, Wayne Attending Clinician Brandon JARAMILLO, Juan Lehman Attending Clinician Unavailable Lisa JARAMILLO, Gurpreet Ramírez Attending Clinician Unavailable Gabrielle Serrato Attending Clinician Tejinder CHAPPELL, Alina Attending Clinician Wilfredo Santillan APN Attending Clinician Chris PharmD, Tanja Mora Attending Clinician Unavailable Precious CARDENAS, Benedicto Attending Clinician Shivam JARAMILLO, Sahara Farah Attending Clinician IRINA SMITH Attending Clinician Unavailable GABRIELLE GONZALEZ Attending Clinician Unavailable MARCIN GARCIA Attending Clinician Unavailable MAYANK CALLES Attending Clinician Unavailable BENEDICTO CORDON Attending Clinician Unavailable RASHAAD PURVIS Attending Clinician Unavailable TANNER MATHEW Attending Clinician Unavailable BENEDICTO RAMSEY Attending Clinician Unavailable GURPREET ESTES Attending Clinician Unavailable RAYMUDNO MARR Attending Clinician Unavailable JACKSON LIND Attending Clinician Unavailable UNKNOWN, ATTENDING Attending Clinician Unavailable HERRERA PIEDRA Attending Clinician Unavailable ROCKY RODRIGUEZ Attending Clinician [...] Unavailable GABE OROZCO Admitting Clinician Unavailable SARAH SHRAMA Admitting Clinician Unavailable Physician, No Primary or Family Admitting Clinician Unavaila ble Payers Payer Name Policy Type Policy Number Effective Date Expiration Date Raquel EMANUEL [id number] 2020 PLUS CLASSIC/VALUE 00:00:00 Problems Condition Condition Condition Status Onset Resolution Last Treating Co mments Source Name Details Category Date Date Treatment Clinician Date 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 Center Added automatic ally from request for surgery [id number] Family Family Disease Active 2020-06 Univers education education 1-09 [place]y of about pain about [place] management management 00 MD Fuentes zimmerman [facility] History of History of Disease Recurre Univers radiation radiation nce 8-20 ity of therapy therapy 00:00: [place] 00 MD Fuentes zimmerman [facility] Pressure-i Pressure-i Disease Active Overview : Univers nduced nduced 7-09 Formattin ity of deep deep 00:00: g of this [place] tissue tissue 00 note damage of damage of might be An derso other site other site different n from the Cancer original. Center Site: Coccyx Sepsis Sepsis Disease Active Univers 7-08 ity of 00:00: [place] 00 MD Fuentes zimmerman [facility] Pulmonary Pulmonary Disease Active Uni vers embolism embolism 5-21 ity of 00:00: 00 MD Fuentes zimmerman [facility] Stage 1 Stage 1 Disease Active Overview: Univ ers pressure pressure 5-18 Formattin ity of ulcer of ulcer of 00:00: g of this [place] as other site other site 00 note might be Anders[place] different n from the Cancer original. 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 Tube Tube Disease Active Univers feeding feeding 4-24 ity of diet diet 00:00: [place] 00 MD Fuentes zimmerman [facility] Pneumonia Pneumonia Disease Active Uni vers due to due to 4-22 ity of other other 00:00: [place] Gram-negat Gram-negat 00 MD ceci Dill bacteria bacteria [facility] Sequelae Sequelae Disease Active Unive rs of of 4-11 ity of hyperalime hyperalime 00:00: [place] ntation ntation 00 MD Fuentes zimmerman [facility] Adverse Adverse Disease Active Univers effect of effect of 3-23 ity of glucocorti glucocorti 00:00: [place] coids and coids and 00 synthetic synthetic [facility] analogues analogues [facility] Current Current Disease Active Univers use of use of 3-23 ity of insulin insulin 00:00: [place] 00 MD Fuentse zimmerman [facility] Anxiety Anxiety Disease Active Univers disorder disorder 3-17 ity of due to a due to a 00:00: [place] general general 00 medical medical Andmiguel condition condition n [facility] Disorder Disorder Disease Active Unive rs of fluid of fluid 3-08 ity of AND/OR AND/OR 00:00: [place] electrolyt electrolyt 00 [facility] Sinus Sinus Disease Active Univers tachycardi tachycardi 3-08 it y of a a 00:00: [place] 00 MD Fuentes zimmerman [facility] Pleuritic Pleuritic Disease Active Uni vers pain pain 2-26 ity of 00:00: [place] 00 MD Dill [facility] Anemia of Anemia of Disease Recurre Un yakov chronic chronic nce 2-22 ity of disease disease 00:00: [place] 00 MD Fuentes zimmerman [facility] Acute and Acute and Disease Active Uni vers chronic chronic 2-22 ity of respirator respirator 00:00: [place] failure y failure 00 with with Fuentes hypoxia hypoxia [facility] Failure to Failure to Disease Active U nivers thrive thrive 2-22 ity of 00:00: [place] 00 MD Fuentes zimmerman [facility] 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 An derso on on n Cancer Center Dyspnea Dyspnea Disease Active Univers 2-11 ity of 00:00: [place] 00 MD Fuentes zimmerman [facility] Decompensa Decompensa Disease Active U nivers lakhwinder COPD lakhwinder COPD 07-30 ity of with acute with acute [place] exacerbati exacerbati 00 on on Fuentes zimmerman [facility] 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 Disease Recurre Un yakov current current nce 07-30 ity of use of use of 00:00: [place] opiate opiate 00 analgesic analgesic [facility] 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 Last Univers carcinoma carcinoma nce 0-23 Assessmen i ty of of upper of [...] Univers emphysema emphysema ity of [place] zimmerman [facility] Adjustment Adjustment Disease Recurre Univers disorder disorder nce ity of with mixed with mixed [place] anxiety anxiety and franco Dill depressed depressed n mood mood [facility] Chronic Chronic Disease Active Univers pain due pain due ity of to to [place] malignant malignant neoplastic neoplastic An derso disease disease n [facility] Center Slow Slow Disease Active Univers transit transit ity of [place] on on MD Fuentes zimmerman [facility] Other Other Disease Active Univers psychologi psychologi it y of tracy or tracy or [place] physical physical stress, stress, Anderso not not n elsewhere elsewhere Canc er classified classified Ce nter Personal Personal Disease Recurre Univ ers history of history of nce it y of COVID-19 COVID-19 [place] zimmerman [facility] Acute Acute Disease Resolve 2021-09-04 2021-09-04 Univers kidney kidney d - 00:00:00 14:37:22 ity of injury due injury due [place] to to 00 hypovolemi hypovolemi An derso a a n [facility] Hypovolemi Hypovolemi Disease Resolve 2021-09-04 2021-09-04 Univers a a d 8- 00:00:00 14:36:33 ity of 00:00: [place] 00 MD Fuentes zimmerman [facility] High High Disease Resolve 2021-09-04 2021-09-04 Univers troponin I troponin I d 8 00:00:00 14:35:35 ity of level level 00:00: [place] 00 MD Fuentes zimmerman [facility] Hyperkalem Hyperkalem Disease Resolve 2021-09-04 2021-09-04 Univers ia ia d 8 00:00:00 14:36:15 ity of 00:00: [place] 00 MD Fuentes zimmerman [facility] Aspergillo Aspergillo Disease Resolve 2021-09-04 2021-09-04 Univers sis with sis with d 4 00:00:00 14:36:44 it y of pneumonia pneumonia 00:[place] 00 [facility] Multiple Multiple Disease Resolve 2021-09-04 2021-09-04 Univers lung lung d 4 00:00:00 14:36:17 [place]y of abscesses abscesses [place] 00 [facility] Drug Drug Disease Resolve 2021-09-04 2021-09-04 Univers induced induced d 3- 00:00:00 14:37:13 ity of diabetes diabetes 00:00: [place] mellitus mellitus 00 MD with with Fuentes joseph hyperglyce n [facility] 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 Disease Resolve 2021-09-04 2021-09-04 Univers current current d 3- 00:00:00 14:37:15 ity of use of use of 00:00: [place] systemic systemic 00 steroid steroid [facility] Pneumocyst Pneumocyst Disease Resolve 2021-09-04 2021-09-04 Univers osis osis d 3- 00:00:00 14:35:43 [place] of pneumonia pneumonia 00:[place] 00 [facility] Cytomegalo Cytomegalo Disease Resolve 2021-09-04 2021-09-04 Univers virus virus d 3-08 00:00:00 14:35:47 it[place] of infection infection [place] 00 [place] Fuentes zimmerman [facility] Diarrhea Diarrhea Disease Resolve 2021-09-04 2021-09-04 Univers d 2-22 00:00:00 14:37:13 ity of 00:00: [place] 00 MD Fuentes zimmerman [facility] Aspiration Aspiration Disease Resolve 2021-09-04 2021-09-04 Univers into lower into lower d 2-11 00:00:00 14:37:24 [place]y of respirator [place]ator [place] y tract y tract 00 MD Fuentes zimmerman [facility] COVID-19 COVID-19 Disease Resolve 2021-09-04 2021-09-04 Univers d 1-30 00:00:00 14:35:39 ity of 00:00: [place] 00 MD Fuentes zimmerman [facility] Amaurosis Amaurosis Disease Resolve 2021-09-04 2021-09-04 Univers fugax fugax d 4-29 00:00:00 14:36:43 ity of 00:00: [place] 00 MD Fuentes zimmerman [facility] Cancer-rel Cancer-rel Disease Resolve 2021-09-04 2021-09-04 Univers ated ated d 00:00:00 14:37:19 ity of fatigue fatigue [place] zimmerman [facility] Mixed Mixed Disease Resolve 2021-09-04 2021-09-04 Univers infectious infectious d 00:00:00 14:36:17 ity of disease disease [place] zimmerman [facility] Melly Tomography Tomography Disease Resolve 2021-09-04 2021-09-04 Univers - chest - chest d 00:00:00 14:36:37 ity of abnormal abnormal [place] zimmerman [facility] Allergies, Adverse Reactions, Alerts Allergy Allergy Status Severity Reaction(s) Onset Inactive Treating Comm ents Source Name Type Date Date Clinician No Known DA Active U 2020-1 [facility]ie [facility] 00:[facility]: d 00 [facility] No Known DA Active U 2020-1 [facility] Allergie 0-30 [facility] 00:00: d 00 [facility] codeine DA Active NE 2020-0 [facility] 2-13 [facility] 00:00: d 00 [facility] codeine DA Active NE rash [facility] 2-13 [facility] 00:00: d 00 [facility] codeine DA Active NE 2011-06 [facility] 0- [facility] 00:00: d 00 [facility] codeine DA Active NE rash 2011-06 [facility] d [facility] NO KNOWN Drug Active Univers ALLERGIE Class ity of S [place] [facility] [place] Family History Family Member Diagnosis Comments Start Date Stop Date Source Maternal grandfather Emphysema Univ ersity of [facility] Cance r [place] Natural sister Lung cancer Universit y of [facility] [place] Social History Social Habit Start Date Stop Date Quantity Comments Source History of tobacco Cigarette Smoker [facility] MD Levi darden [facility] History SDOH University o f Alcohol Std Drinks [facility] History [facility] University o f Alcohol Binge [place] MD Marianela gustafson [facility] History [facility] o f Alcohol Frequency [facility] Alcohol intake 2021-10-25 2021-10-25 Ex-drinker University 00:00:00 00:00:00 (finding) [place] MD Levi darden [facility] History SDOH 2020-03-02 2020-03-02 .5 elizabeth of [place] of Alcohol Comment 00:00:00 00:00:00 vodka daily 15 [facility] years ago [facility] Cigarettes smoked 2020-03-02 2020-03-02 Univers ity of current (pack per 00:00:00 00:00:00 [facility] ) - Reported Cancer Ce nter Tobacco use and 2020-03-02 2020-03-02 Smokeless Universit y of exposure 00:00:00 00:00:00 tobacco non-user [facility] Sex [birth year] Universit y of 00:00:00 00:00:00 [place] MD Sims [facility] Smoking Status Start Date Stop Date Source Ex-smoker 2020-03-02 00:00:00 2020-03-02 00:00:00 Universi ty of [facility] Medications Ordered Filled Start Stop Current Ordering Indication Dosage Frequency Signature Comments Components Source Medication Medication Date Date Medication? Clinician (SIG) Name Name QUEtiapine Yes Anxiety 25mg Take 1 Un yakov (SEROquel) 7- disorder tablet (25 ity of 25 mg 00:00: due to a mg) by [place] tablet 00 general mouth MD medical every 6 Anderso condition (six) n hours as Cancer needed for Center non-violen t agitation (anxiety sleep). QUEtiapine Yes Anxiety 25mg Take 1 Un yakov (SEROquel) 12-28 disorder tablet (25 ity of 25 mg 00:00: due to a mg) by [place] tablet 00 general mouth MD medical every 6 Anderso condition (six) n hours as Cancer needed for Center non-violen t agitation (anxiety sleep). QUEtiapine 2021- No Anxiety 25mg Take 1 U nivers (SEROquel) 12-01 disorder tablet (25 ity of 25 mg 00:00: 00:00 due to a mg) by [place] tablet 00 :00 general mouth MD medical every 6 Anderso condition (six) n hours as Cancer needed for Center non-violen t agitation (anxiety sleep). QUEtiapine 2021- No Anxiety 25mg Take 1 U nivers (SEROquel) 12-01 disorder tablet (25 ity of 25 mg [...] per specified daily. n tablet Cancer Center amoxicillin Yes Upper 875mg Take 1 Un [...] daily. Bakari o specified n Cancer Center levoFLOXaci Yes Upper 500mg Take [...] for Anderso 4 days. n Cancer Center fluconazole 2021- No Candidal 200mg Take 1 Univers (Diflucan) 10-25 05-03 esophagitis tablet ity of 200 mg 00:00: 04:59 (200 mg) [place] tablet 00 :00 by mouth MD daily for Anders[place] 4 days. n Cancer [place] promethazin 2021- No 12.5mg Take 12.5 Univers e 4-27 04-27 mg by ity of (PHENERGAN) 18:27: 00:00 [place] 12.5 mg 03 :00 every 6 MD tablet (six) Anderso hours as n needed. Cancer Center aspirin 81 2021- No 81mg Take 81 mg Univers mg EC 4- 04-27 by mouth ity of tablet 18:27: 00:00 [place]. [place] 03 :00 [place] Fuentes zimmerman [facility] promethazin 2021- No 12.5mg Take 12.5 Univers e 4-27 04-27 mg by ity of (PHENERGAN) 18:27: 00:00 [place] 12.5 mg 03 :00 every 6 MD tablet (six) Anderso hours as n needed. Cancer Center aspirin 81 2021- No 81mg Take 81 mg Univers mg EC 4-27 04-27 by mouth ity of tablet 18:27: 00:00 [place]. [place] 03 :00 [place] Fuetnes zimmerman [facility] atorvastati Yes 40mg Take 40 mg Univers n (LIPITOR) 4-27 by mouth ity of 40 mg 18:26: daily. [place] tablet 55 MD Fuentes zimmerman [facility] budesonide Yes severe .25mg Inhale Un yakov (PULMICORT) 10-24 chronic 0.25 mg by ity of 0.25 mg/2 18:26: obstructive nebulizati [place] mL 55 pulmonary on daily. nebulizer disease Anderso solution [facility] umecdiniu Yes Inhale by U nivers m-vilantero 10-24 mouth. ity of L 62.5-25 18:26: [place] mcg/actuati 55 MD on dsdv [facility] megestrol Yes 400mg Give 400 Uni vers (MEGACE) 40 4-27 mg per ity of mg/mL 18:26: G-tube. [place] suspension 55 [facility] atorvastati Yes 40mg Take 40 mg Univers n (LIPITOR) 10-24 by mouth ity of 40 mg 18:26: daily. [place] tablet 55 [facility] budesonide Yes severe .25mg Inhale Un yakov (PULMICORT) 10-24 chronic 0.25 mg by ity of 0.25 mg/2 18:26: obstructive nebulizati [place] mL 55 pulmonary on daily. nebulizer disease [facility] solution [facility] Yes Inhale by U nivers m-vilantero 10-24 mouth. ity of L 62.5-25 18:26: [place] mcg/actuati 55 MD on dsdv [facility] megestrol Yes 400mg Give 400 Uni vers (MEGACE) 40 4-27 mg per ity of mg/mL 18:26: G-tube. [place] suspension 55 [facility] ipratropium Yes Pneumocysto 3mL Inhale 1 Univers [...] 4 [place] imethicone 00 disease (four) MD (MAALOX hours as [place] PLUS) 200 needed for n mg-200 indigestio Cancer mg-20 mg/5 n or Center mL heartburn. suspension guaiFENesin Yes Pneumonia 600mg Take 1 Univers (MUCINEX) 10-24 due to tablet ity of 600 mg 12 00:00: other (600 mg) [place] as hr tablet 00 Gram-negati by mouth MD ve bacteria every 12 Prince rso (twelve) n hours. Cancer Center sucralfate Yes Gastroesoph 1000mg Take 10 mL Univers (CARAFATE) 10-24 ageal (1,000 mg) it y of 100 mg/mL 00:00: reflux by mouth 4 [place] suspension 00 disease (four) MD times a Anderso day before n meals and Cancer nightly. Center QUEtiapine Yes Adjustment 75mg Take 3 Univers (SEROquel) 10-24 disorder tablets it y of 25 mg [...] Cancer wheezing Center or shortness of breath. ipratropium Yes Pneumocysto 3mL Inhale 1 Univers [...] as hr tablet 00 Gram-negati by mouth MD ve bacteria every 12 [place] rso (twelve) n hours. Cancer [place] sucralfate Yes Gastroesoph 1000mg Take 10 mL Univers (CARAFATE) 10-24 ageal (1,000 mg) it y of 100 mg/mL 00:00: reflux by mouth 4 [place] suspension 00 disease (four) MD times a Anderso day before n meals and Cancer nightly. [place] QUEtiapine Yes Adjustment 75mg Take 3 Univers (SEROquel) 10-24 disorder tablets it y of 25 mg 00:00: with mixed (75 mg) by [place] tablet 00 anxiety and mouth at MD depressed bedtime. Bakari o mood n [facility] Ventolin Yes Pneumonia 1{puff} Inhale 1 [...] specified daily for n tablet 7 days. [facility] amoxicillin 2021- No Upper 875mg Take 1 U nivers -clavulanat 10-11 respiratory tablet ity of e 00:00: 00:00 [place], (875 mg[place] (Augmentin) 00 :00 not by mouth 875 mg-125 otherwise twice And erso mg per specified daily for n tablet 7 days. [facility] amoxicillin 2021- No Decompensat 875mg Take 1 Univers -clavulanat 10-10 ed COPD tablet it y of e 00:00: 00:00 with acute (875 mg) [place] (Augmentin) 00 :00 exacerbatio by mouth 875 mg-125 n twice [place] mg per daily for n tablet 5 days. Cancer Center amoxicillin 2021- No Decompensat 875mg Take 1 Univers -clavulanat 10-10 04-14 ed COPD tablet it y of e 00:00: 00:00 with acute (875 mg) [place] (Augmentin) 00 :00 exacerbatio by mouth 875 mg-125 n twice [place] mg per daily for n tablet 5 days. Cancer Center acetaminoph Yes Neoplasm 1{tbl} Take 1 Univers en-codeine 3-11 related tablet by i ty of (TYLENOL 00:00: pain mouth [place] #3) 300 00 (acute) every 6 MD mg-30 mg (chronic) (six) Levi so tablet hours as n needed for Cancer mild pain Center or moderate pain (Marj Garza APN). acetaminoph Yes Neoplasm 1{tbl} Take 1 Univers en-codeine 3-11 related tablet by i ty of (TYLENOL 00:00: pain mouth [place] #3) 300 00 (acute) every 6 MD mg-30 mg (chronic) (six) [place] so tablet hours as n needed for Cancer mild pain Center or moderate pain (Marj Garza APN). QUEtiapine 2021- No Anxiety 25mg Take 1 U nivers (SEROquel) 09-07 disorder tablet (25 ity of 25 mg 00:00: 00:00 due to a mg) by [place] tablet 00 :00 general mouth MD medical every 6 Anderso condition (six) n hours as Cancer needed for Center non-violen t agitation. QUEtiapine 2021- No Anxiety 25mg Take 1 U nivers (SEROquel) 09-07-04 disorder tablet (25 ity of 25 mg 00:00: 00:00 due to a mg) by [place] tablet 00 :00 general mouth MD medical every 6 Anderso condition (six) n hours as Cancer needed for Center non-violen t agitation. amoxicillin 2021- No Community 875mg Take 1 Univers -clavulanat 09-07-15 acquired tablet i ty of e 00:00: 04:59 pneumonia (875 mg) [place] as (AUGMENTIN) 00 :00 by mouth MD 875 mg-125 every 12 [place] so mg per (twelve) n tablet hours for Cancer 3 days. [place] amoxicillin 2021- No [facility] 875mg Take 1 Univers -clavulanat 3-15 acquired tablet i ty of e 00:00: 04:59 pneumonia (875 mg) [place] (AUGMENTIN) 00 :00 by mouth MD 875 mg-125 every 12 [place] so mg per (twelve) n tablet hours for Cancer 3 days. [place] amoxicillin [facility] 875mg Take 1 Univers -clavulanat 309-07 acquired tablet i ty of e 00:00: 00:00 pneumonia (875 mg) [place] as (AUGMENTIN) 00 :00 by mouth MD 875 mg-125 every 12 [place] so mg per (twelve) n tablet hours for Cancer 3 days. [place] amoxicillin [id number] 875mg Take 1 Univers -clavulanat 309-07 acquired tablet i ty of e 00:00: 00:00 pneumonia (875 mg) [place] (AUGMENTIN) 00 :00 by mouth MD 875 mg-125 every 12 [place] so mg per (twelve) n tablet hours for Cancer 3 days. [place] amoxicillin 2021- [facility] 875mg Take 1 Univers -clavulanat 309-07 acquired tablet i ty of e 00:00: 00:00 pneumonia (875 mg) Gio as (AUGMENTIN) 00 :00 by mouth MD 875 mg-125 every 12 Levi so mg per (twelve) n tablet hours for Cancer 3 days. [place] amoxicillin No [facility] 875mg Take 1 Univers -clavulanat 311 acquired tablet i ty of e 00:00: 00:00 pneumonia (875 mg) [place] as (AUGMENTIN) 00 :00 by mouth MD 875 mg-125 every 12 Levi so mg per (twelve) n tablet hours for Cancer 3 days. [place] HYDROcodone 2021 No Adjustment 1{tbl} Take 1 Univers -acetaminop 08-18 disorder tablet by celia ([place]) 00:00: 00:00 with mixed mouth [place] 5 mg-325 mg 00 :00 anxiety and every 6 MD per tablet depressed (six) And erso mood hours as n needed for Cancer moderate Center pain for up to 30 days. HYDROcodone 2021- No Adjustment 1{tbl} Take 1 Univers -acetaminop 2-19 03-11 disorder tablet by ity of hen ([employer]) 00:00: 00:00 with mixed mouth [place] 5 mg-325 mg 00 :00 anxiety and every 6 MD per tablet depressed (six) And erso mood hours as n needed for Cancer moderate Center pain for up to 30 days. QUEtiapine 2021- No Adjustment 75mg Take 3 Univers (SEROquel) 2-15 - disorder tablets i ty of 25 mg 00:00: 00:00 with mixed (75 mg) by [place] tablet 00 :00 anxiety and mouth at MD depressed bedtime. Bakari o mood n Cancer Center QUEtiapine 2021- No Adjustment 75mg Take 3 Univers (SEROquel) 2-15 - disorder tablets i ty of 25 mg 00:00: 00:00 with mixed (75 mg) by [place] tablet 00 :00 anxiety and mouth at MD depressed bedtime. Bakari o mood n Cancer Center HYDROcodone 2021- No Adjustment 1{tbl} Take 1 Univers -acetaminop 2-15 - disorder tablet by ity of hen ([employer]) 00:00: 00:00 with mixed mouth [place] 5 mg-325 mg 00 :00 anxiety and every 6 MD per tablet depressed (six) And erso mood hours as n needed for Cancer moderate Center pain for up to 30 days. HYDROcodone 2021- No Adjustment 1{tbl} Take 1 Univers -acetaminop 2-15 -19 disorder tablet by ity of hen ([employer]) 00:00: 00:00 with mixed mouth [place] 5 mg-325 mg 00 :00 anxiety and every 6 MD per tablet depressed (six) And erso mood hours as n needed for Cancer moderate Center pain for up to 30 days. 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) BY [employer] tablet 00 upper lobe, MOUTH MD lung TWICE Anderso <Right> DAILY [facility] memantine Yes Small cell TAKE 1 Univers (NAMENDA) 14 carcinoma, TABLET(10 ity of 10 mg 00:00: NOS of MG) BY [place] tablet 00 upper lobe, MOUTH MD lung TWICE [place]o <Right> DAILY [facility] memantine 2021- No Small cell 5 mg a day Univers (Namenda) 08-13 carcinoma, x 1 week, ity of 10 mg 00:00: 00:00 NOS of [place] 5 [place] tablet 00 :00 upper lobe, twice MD lung daily x 1 Anderso <Right> week, then n 10 mg Cancer every am Center and 5 mg every pm x 1 week, then 10 mg twice daily for 6 months memantine 2021- No Small cell 5 mg a day Univers (Namenda) 08-13 carcinoma, x 1 week, ity of 10 mg 00:00: 00:00 NOS of [place] 5 [place] tablet 00 :00 upper lobe, twice MD lung daily x 1 Anderso <Right> week, then n 10 mg Cancer every am Center and 5 mg every pm x 1 week, then 10 mg twice daily for 6 months pantoprazol Yes Aspiration TAKE 1 Univers e 1-28 into lower TABLET(40 ity of (PROTONIX) 00:00: respiratory MG) BY [place] 40 mg EC 00 tract MOUTH MD tablet DAILY [facility] pantoprazol Yes Aspiration TAKE 1 Univers e 1-28 into lower TABLET(40 ity of (PROTONIX) 00:00: respiratory MG) BY [place] 40 mg EC 00 tract MOUTH MD tablet DAILY [facility] QUEtiapine 2021- No 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 Bakari o mood [facility] QUEtiapine 2021- No 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 Bakari o mood n [facility] pantoprazol 2021- No Aspiration 40mg Take 1 Univers e 07-11 into lower tablet (40 it y of (PROTONIX) 00:00: 00:00 respiratory mg) by [place] 40 mg EC 00 :00 tract mouth MD tablet daily. [facility] pantoprazol No Aspiration 40mg Take 1 Univers e 07-11 into lower tablet (40 it y of (PROTONIX) 00:00: 00:00 respiratory mg) by [place] 40 mg EC 00 :00 tract mouth MD tablet daily. [facility] OLANZapine 2021- No Insomnia, 2.5mg Take 1 Univers (ZyPREXA) 07-02 not tablet ity of 2.5 mg 00:00: 00:00 otherwise (2.5 mg) [place] tablet 00 :00 specified by mouth 2 MD (two) Anderso times a n day as Cancer needed for Center sleep or non-violen t agitation. OLANZapine No Insomnia, 2.5mg Take 1 Univers (ZyPREXA) [...] mg per specified daily. 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 [place] amoxicillin 2021-1 2022- No Upper 875mg Take 1 U nivers -clavulanat 08-14 respiratory tablet ity of e 00:00: 00:00 infection, (875 mg) [place] (Augmentin) 00 :00 not by mouth MD 875 mg-125 otherwise twice And erso mg per specified daily. n tablet Cancer Center acetaminoph 2020-06- No Chronic 1{tbl} Take 1 Univers en-codeine 08-14 pain due to tablet by ity of [...] per specified daily. n tablet Cancer Center amoxicillin 2020-06 No Upper 875mg Take 1 [...] as Cancer needed for Center muscle spasms. baclofen 2020-06 Yes Muscle 10mg Take 1 [...] for Center sleep or non-violen t agitation. OLANZapine 2020-06- No Insomnia, 2.5mg Take 1 Univers (ZyPREXA) 0- not tablet ity of 2.5 mg 00:00: 00:00 otherwise (2.5 mg) [place] tablet 00 :00 specified by mouth 2 MD (two) Anderso times a n day as Cancer needed for Center sleep or non-violen t agitation. baclofen 2020-06- No Muscle Take 1/2 Un yakov (LIORESAL) 0 11-18 spasm of tablet (5 ity of 10 mg 00:00: 00:00 back mg) PO q12 [place] tablet 00 :00 PRN back spasm. [facility] baclofen 2020-06- No Muscle Take 1/2 Un yakov (LIORESAL) 0 11-18 spasm of tablet (5 ity of 10 mg 00:00: 00:00 back mg) PO q12 [place] tablet 00 :00 PRN back spasm. [facility] OLANZapine 2020-06- No Adjustment 2.5mg Take 1 Univers (ZyPREXA) 04-27 disorder tablet ity of 2.5 mg 00:00: 00:00 with (2.5 mg) [place] tablet 00 :00 anxiety by mouth MD every 6 Anderso (six) n hours as Cancer needed for Center anxiety, sleep or non-violen t agitation. OLANZapine 2020-06- No Adjustment 2.5mg Take 1 Univers (ZyPREXA) 004-27 disorder tablet ity of 2.5 mg 00:00: 00:00 with (2.5 mg) [place] tablet 00 :00 anxiety by mouth MD every 6 Anderso (six) n hours as Cancer needed for Center anxiety, sleep or non-violen t agitation. memantine 2020-06- No Small cell 5 mg a day Univers (Namenda) 0 03-11 carcinoma, x 1 week, ity of 10 mg 00:00: 00:00 NOS of [place] 5 mg [place] tablet 00 :00 upper lobe, twice MD lung daily x 1 Anderso <Right> week, then n 10 mg Cancer every am Center and 5 mg every pm x 1 week, then 10 mg twice daily for 6 [facility] No Small cell 5 mg a [...] Upper 875mg Take 1 U nivers -clavulanat 0-15 23 respiratory tablet ity of e 00:00: 00:00 infection, (875 mg) [place] (Augmentin) 00 :00 not by mouth 875 mg-125 otherwise twice And erso mg per specified daily. n tablet [facility] amoxicillin 2020-06 No Upper 875mg Take 1 U nivers -clavulanat 0-15 23 respiratory tablet ity of e 00:00: 00:00 infection, (875 mg) [place] (Augmentin) 00 :00 not by mouth 875 mg-125 otherwise twice And erso mg per specified daily. n tablet [facility] 2020-06- No Small cell TAKE 1 Univers (NAMENDA) 0-12 0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, TABLET(10 ity of 10 mg 00:00: 00:00 NOS of MG) BY [place] tablet 00 :00 upper lobe, MOUTH lung TWICE [place] <Right> [facility]ILY [facility] No Small cell TAKE 1 Univers (NAMENDA) 0-12 0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, TABLET(10 ity of 10 mg 00:00: 00:00 NOS of MG) BY [place] tablet 00 :00 upper lobe, MOUTH lung TWICE [place] <Right> DAILY [facility] amoxicillin 2020-06- No Upper 875mg Take 1 U nivers -clavulanat 0-09 -15 respiratory tablet ity of e 00:00: 00:00 infection, (875 mg) [place] (Augmentin) 00 :00 not by mouth 875 mg-125 otherwise twice And erso mg per specified daily. n tablet [facility] amoxicillin 2020-06- No Upper 875mg Take 1 U nivers -clavulanat 0-09 10-15 respiratory tablet ity of e 00:00: 00:00 infection, (875 mg) [place] (Augmentin) 00 :00 not by mouth 875 mg-125 otherwise twice And erso mg per specified daily. n tablet [facility] pantoprazol 2021- No Asp[place] 40mg Take 1 Univers e 03-29 into lower tablet (40 it y of (PROTONIX) 00:00: 00:00 respiratory mg) by [place] 40 mg EC 00 :00 tract mouth tablet daily. [facility] pantoprazol 2021- No Aspiration 40mg Take 1 Univers e 03-29 into lower tablet (40 it y of (PROTONIX) 00:00: 00:00 respiratory mg) by [place] 40 mg EC 00 :00 tract mouth tablet daily. [facility] baclofen 2020- No Muscle Take 1/2 Un yakov (LIORESAL) 9- 10-27 spasm of tablet (5 ity of 10 mg 00:00: 00:00 back mg) PO q12 [place] tablet 00 :00 PRN back spasm. [facility] baclofen 2020- No Muscle Take 1/2 Un yakov (LIORESAL) 9-30 10-27 spasm of tablet (5 ity of 10 mg 00:00: 00:00 back mg) PO q12 [place] tablet 00 :00 PRN back spasm. 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 [place] acetaminoph 2020- No Chronic 1{tbl} Take 1 [...] Center anxiety, sleep or non-violen t agitation. OLANZapine 2020- No Adjustment 2.5mg Take 1 [...] per specified daily. n tablet Cancer Center amoxicillin 2020- No Upper 875mg Take 1 [...] back MD spasm. [facility] baclofen 2020- No Muscle Take 1/2 Un yakov (LIORESAL) 03-08 spasm of tablet (5 ity of 10 mg 00:00: 00:00 back mg) PO q12 [place] tablet 00 :00 PRN back MD spasm. [facility] baclofen 5 2020- No Muscle 5mg Take 5 mg Univers mg tab 03-08 spasm of by mouth ity of 00:00: 00:00 back every 12 [place] 00 :00 (twelve) MD hours. [facility] QUEtiapine 2021- No Aspiration 75mg 3 tablets Univers (SEROquel) 03-07 into lower (75 mg) by ity of 25 mg 00:00: 00:00 respiratory feeding [place] tablet 00 :00 tract tube route MD at [facility]. [facility] QUEtiapine 2021- No Aspiration 75mg 3 tablets Univers (SEROquel) 03-07 into lower (75 mg) by ity of 25 mg 00:00: 00:00 respiratory feeding [place] tablet 00 :00 tract tube route MD at [facility]. [facility] QUEtiapine 2020- No Aspiration 75mg 3 tablets Univers (SEROquel) 03-06 into lower (75 mg) by ity of 25 mg 00:00: 00:00 respiratory feeding [place] tablet 00 :00 tract tube route at [facility]. [facility] fluconazole 2020- No Acute 100mg Take 1 U nivers (DIFLUCAN) 03-03 kidney tablet ity of 100 mg 00:00: 04:59 injury due (100 mg) [place] tablet 00 :00 to by mouth hypovolemia daily for And erso 12 days. [facility] lidocaine 2021- No Acute 10mL Swish and U nivers (XYLOCAINE) 03-02 kidney swallow 10 ity of 20 mg/mL 00:00: 00:00 injury due mL every 8 [place] (2%) 00 :00 to (eight) viscous hypovolemia hours as A nderso solution needed n (throat Cancer pain) for Center up to 30 doses. ondansetron 2021- No Small cell 8mg Take 1 Univers (ZOFRAN) 8 03-02 carcinoma tablet (8 ity of mg tablet 00:00: 00:00 of upper mg) by [place] 00 :00 lobe of mouth MD right lung every 8 Bakari o (eight) n hours as Cancer needed for Center nausea or vomiting. lidocaine 2021- No Acute 10mL Swish and [...] [place] 00 :00 lobe of mouth MD right lung every 8 Bakari o (eight) n hours as Cancer needed for Center nausea or vomiting. 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 [facility] memantine 2020- No Small cell 10mg Take 1 Univers (Namenda) 03-02 10-12 carcinoma tablet (10 ity of 10 mg 00:00: 00:00 of upper mg) by [place] tablet 00 :00 lobe of mouth MD right lung twice Anderso daily. [facility] baclofen 5 2020- No Muscle 5mg Take 5 mg Univers mg tab 03-02 spasm of by mouth ity of 00:00: 00:00 back every 12 [place] 00 :00 (twelve) MD hours. Fuentes [facility] pantoprazol 2020- No Aspiration 40mg Take 1 Univers e 02-28 into lower tablet (40 it y of (PROTONIX) 00:00: 00:00 respiratory mg) by [place] 40 mg EC 00 :00 tract mouth MD tablet daily. [facility] pantoprazol 2020- No Aspiration 40mg Take 1 Univers e 02-28 into lower tablet (40 it y of (PROTONIX) 00:00: 00:00 respiratory mg) by [place] 40 mg EC 00 :00 tract mouth MD tablet daily. [facility] loperamide Yes Aspiration 2mg Take 1 Univers (IMODIUM) 2 8-31 into lower capsule (2 ity of mg capsule 00:00: respiratory mg) by [place] [id number] tract mouth MD every 8 Anderso (eight) n hours as Cancer needed for Center diarrhea. Buy over the counter loperamide Yes Aspiration 2mg Take 1 Univers (IMODIUM) 2 8-31 into lower capsule (2 ity of mg capsule 00:00: respiratory mg) by [place] [id number] tract mouth MD every 8 Anderso (eight) n hours as Cancer needed for Center diarrhea. Buy over the counter senna 2021- No Aspiration 2{tbl} Take 2 U nivers (SENOKOT) 02-27 05-17 into lower tablets by ity of 8.6 mg 00:00: 00:00 respiratory mouth 2 [place] tablet 00 :00 tract (two) MD times a Anderso day as n needed for Cancer constipati Center on. Buy over the counter senna 2021- No Aspiration 2{tbl} Take 2 U nivers (SENOKOT) 02-27 05-17 into lower tablets by ity of [...] over Center the counter. use as directed oral 2021- No Aspiration 1{appli Apply 1 [...] syringe pulmonale (twelve) n hours. Cancer Center enoxaparin 2021- No Other 50mg Inject 0.5 [...] n paste (wound Cancer care/ Center buttocks). wound 2021- No Aspiration Apply Univ ers [...] tablet hours as n needed Cancer (pain). [place] multivitami Yes Aspiration 1{tbl} Take 1 Univers n tab 7-23 into lower tablet by ity of tablet 00:00: respiratory mouth G[place] as 00 tract daily. MD Fuentes zimmerman [facility] multivitami Yes Aspiration 1{tbl} Take 1 Univers n tab 7-23 into lower tablet by ity of tablet 00:00: respiratory mouth [place] as 00 tract daily. MD Fuentes zimmerman [facility] ferrous 2021- No 1{tbl} Take 1 Unive rs sulfate 325 7-22 05-17 tablet by it y of (65 FE) MG 00:00: 00:00 mouth [place] EC tablet 00 :00 daily. MD Fuentes zimmerman [facility] ferrous 2021- No 1{tbl} Take 1 Unive rs sulfate 325 7-22 05-17 tablet by it y of (65 FE) MG 00:00: 00:00 mouth [place] EC tablet 00 :00 daily. 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 Cancer Center ipratropium 2021- No Pneumocysto USE 1 VIAL Univers -albuterol 11-30 sis VIA ity of (DUO-NEB) 00:00: 00:00 pneumonia NEBULIZER [place] 0.5 mg-2.5 00 :00 EVERY 6 MD mg/3 mL HOURS Anderso nebulizer NEEDED FOR n solution WHEEZING Cancer OR Center SHORTNESS OF BREATH FOR UP TO 30 DAYS ipratropium 2021- No Pneumocysto USE 1 VIAL Univers -albuterol 11-30 sis VIA ity of (DUO-NEB) 00:00: 00:00 pneumonia NEBULIZER [place] 0.5 mg-2.5 00 :00 EVERY 6 MD mg/3 mL HOURS Anders[place] nebulizer NEEDED FOR n solution WHEEZING Cancer OR Center SHORTNESS OF BREATH FOR UP TO 30 DAYS nut.[email or web address] 2021- No Tube 250mL Give 250 Univers ired 11-17-11 feeding mL per ity of digestive 00:00: 00:00 diet G-tube 3 G[place] as fxn 00 :00 (three) MD (peptamen times a [place]o 1.5) day. n enteral Cancer tube Center feeding nut.tx.[email or web address] 2021- No Tube 250mL Give 250 Univers ired 11-17-11 feeding mL per ity of digestive 00:00: 00:00 diet G-tube 3 [place] as fxn 00 :00 (three) MD (peptamen times a [place]o 1.5) day. n enteral Cancer tube Center feeding guaiFENesin 2021- No Emphysema 600mg Take 1 Univers (MUCINEX) 10-08-12 tablet ity of 600 mg 12 00:00: 04:59 (600 mg) G[place] as hr tablet 00 :00 by mouth MD every 12 Anderso (twelve) n hours. [facility] guaiFENesin 2021- No Emphysema 600mg Take 1 Univers (MUCINEX) 10-08-12 tablet ity of 600 mg 12 00:00: 04:59 (600 mg) [place] as hr tablet 00 :00 by mouth MD every 12 Anderso (twelve) n hours. Cancer [place] lancets Yes Type 2 1{each} 1 each by [facility] 10-06 diabetes miscellane ity o f 00:00: mellitus [place] route [place] 00 with twice hyperglycem daily. Bakari zimmerman [facility] lancets Yes Type 2 1{each} 1 each by [facility] 10-06 diabetes misc[place]ane ity o f 00:00: mellitus ous route [place] 00 with twice hyperglycem daily. Bakari zimmerman [facility] Immunizations Ordered Filled Immunization Date Status Comments [facility] Immunization Name Name [facility] 2020-08-22 Completed [facility] 00:00[facility] [place] [facility] [place] [facility] 00[facility] [place] [facility] 2020[facility] Completed [facility] 00:[facility] [place] [facility] 2020-08[facility]21 Completed [facility] 00:00[facility] [place] [facility] 2020[facility]21 Completed [facility] 00:00[facility] [place] [facility] 2020[facility] Completed [facility] 00:00[facility] [place] [facility] Com[facility] 00:[facility] [place] [facility] 2020[facility] Com[facility] 00:00:00 [place] [facility] [place] [facility]18 Completed [facility] 00:00[facility] [place] [facility] 00[facility]00[facility] [place] [facility] Com[facility] 00:00[facility] [place] [facility] Com[facility] 00:00[facility] [place] [facility] 2020[facility]08[facility] Completed [facility] 00:00:00 [place] [facility] Completed University of 00:00:00 Willis CARDENAS Levi darden [facility] remdesivir 2020-08-02 Completed University of 00:00:00 [place] CARDENAS [place] darden [facility] remdesivir 2020-08-02 Completed University of 00:00:00 [place] Levi darden [facility] remdesivir 2020-08-01 Completed University of 00:00:00 [place] Levi darden [facility] remdesivir 2020-08-01 Completed University of 00:00:00 [place] Levi darden [facility] remdesivir 2020-07-31 Completed University of 00:00:00 [place] Levi darden [facility] remdesivir 2020-07-31 Completed University of 00:00:00 [place] Levi darden [facility] remlourdes hospitalivir 2020-07-30 Completed University of 00:00:00 [place] Levi darden [facility] remdesivir 2020-07-30 Completed University of 00:00:[address] [place] [address] Influenza Split 2020-03-29 Completed Universit y of High Dose 00:00:[address] [facility] IM Zoster Recombinant 2020-03-29 Completed Univer sity of 00:00:[address] [place] [address] [place] [facility] Influenza Split 2020-03-29 Completed Universit y of High Dose 00:00:00 [place] MD Levi darden [facility] IM Zoster Recombinant 2020-03-29 Completed Univer sity of 00:00:[address] [place] [address] [place] [facility] Vital Signs Vital Name Observation Time Observation Value Comments Source WEIGHT 2020-04-21 12:35:00 49.6 kg HEIGHT 2020-03-31 09:15:13 162 cm WEIGHT 2020-03-31 09:15:13 49 kg HEIGHT 2020-03-02 10:27:01 162 cm WEIGHT 2020-03-02 10:27:01 46.8 kg Heart rate 2021-10-24 21:41:00 74 /min Universi ty of Willis Villegas [facility] Respiratory rate 2021-10-24 21:41:00 18 /min Univ ersity of Willis Villegas [facility] Center Systolic blood 2021-10-24 17:30:00 119 mm[Hg] Univer sity of pressure Willis Villegas [facility] Diastolic blood 2021-10-24 17:30:00 78 mm[Hg] Unive rsity of pressure Willis MD Villegas on [facility] Oxygen saturation in 2021-10-24 17:30:00 96 /min [facility] Arterial blood by [place] Pulse oximetry Cancer Center Body temperature 2021-10-24 16:48:00 36.89 Lizabeth [facility] MD Villegas on [facility] Body weight 2021-10-24 09:00:00 55 kg [facility] MD Villegas on [facility] BMI 2021-10-24 09:00:00 19.57 kg/m2 [facility] MD [facility]legas on [facility] Body height 2021-10-15 14:57:00 167.6 cm [facility] MD Villegas [facility] Procedures Procedure Date / Time Performing Clinician Source Performed COMPLETE BLOOD COUNT W/ 2021-10-24 10:53:00 Tod Glass V. [facility] DIFFERENTIAL [facility] COMPREHENSIVE METABOLIC 2021-10-24 10:53:00 Tod Glass V. [facility] PANEL [facility] MAGNESIUM LEVEL 2021-10-24 10:53:00 Tod Glass V[address] [facility] PHOSPHORUS LEVEL 2021-10-24 10:53:00 Tod Glass V. [facility] Results CBC 2021-10-24 10:53:00 Tod Glass V[address] [facility] MANUAL DIFFERENTIAL 2021-10-24 10:53:00 Tod Glass V. [facility] GLUCOSE LEVEL 2021-10-24 10:53:00 Tod Glass V. [place] o [facility] BLOOD UREA NITROGEN 2021-10-24 10:53:00 Tod Glass V. [facility] ELECTROLYTE PANEL 2021-10-24 10:53:00 Tod Glass V. [facility] SERUM CREATININE 2021-10-24 10:53:00 Tod Glass V. [facility] .GLOMERULAR FILTRATION 2021-10-24 10:53:00 [facility] RATE [facility] CALCIUM LEVEL TOTAL 2021-10-24 10:53:00 Tod Glass V. [facility] ALBUMIN LEVEL 2021-10-24 10:53:00 Tod Glass V[address] [facility] ALKALINE PHOSPHATASE 2021-10-24 10:53:00 Tod Glass V. [facility] AMINOTRANSFERASE 2021-10-24 10:53:00 [facility] ASPARTATE AMINOTRANSFERASE 2021-10-24 10:53:00 Tod Glass [facility] TOTAL PROTEIN 2021-10-24 10:53:00 Tod Glass V[address] [facility] FRACTIONATED BILIRUBIN 2021-10-24 10:53:00 [facility] [facility] OSCILLATORY PEP 2021-10-23 13:00:13 Tod Glass [address] [facility] COMPLETE BLOOD COUNT W/ 2021-10-23 12:28:00 Tod Glass V. [facility] DIFFERENTIAL [facility] COMPREHENSIVE METABOLIC 2021-10-23 12:28:00 Tod Glass V. [facility] PANEL [facility] MAGNESIUM LEVEL 2021-10-23 12:28:00 Tod Glass [address] [facility] PHOSPHORUS LEVEL 2021-10-23 12:28:00 Tod Glass V. [facility] Results CBC 2021-10-23 12:28:[address] Tod Glass [address] [facility] MANUAL DIFFERENTIAL 2021-10-23 12:28:00 Tod Glass V. [facility] GLUCOSE LEVEL 2021-10-23 12:28:[address] Tod Glass V[address] [facility] BLOOD UREA NITROGEN 2021-10-23 12:28:00 Tod Glass V. [facility] ELECTROLYTE PANEL 2021-10-23 12:28:00 Tod Glass V. [facility] SERUM CREATININE 2021-10-23 12:28:00 Tod Glass V. [facility] .GLOMERULAR FILTRATION 2021-10-23 12:28:00 Tod Glass [facility] RATE [facility] CALCIUM LEVEL TOTAL 2021-10-23 12:28:00 Tod Glass V. [facility] ALBUMIN LEVEL 2021-10-23 12:28:[address] Tod Glass [address] [facility] ALKALINE PHOSPHATASE 2021-10-23 12:28:00 Tod Glass V. [facility] ALANINE AMINOTRANSFERASE 2021-10-23 12:28:00 Tod Glass V. [facility] ASPARTATE AMINOTRANSFERASE 2021-10-23 12:28:00 Tod Glass [facility] [facility] TOTAL PROTEIN 2021-10-23 12:28:[address] Tod Glass V[address] [facility] FRACTIONATED BILIRUBIN 2021-10-23 12:28:00 [facility] OSCILLATORY PEP 2021-10-22 19:00:[address] [facility] OSCILLATORY PEP 2021-10-22 13:00:14 Tod Glass V[address] [facility] COMPLETE BLOOD COUNT W/ 2021-10-22 11:48:00 Tod Glass V. [facility] DIFFERENTIAL [facility] COMPREHENSIVE METABOLIC 2021-10-22 11:48:00 Tod Glass V. [facility] PANEL [facility] MAGNESIUM LEVEL 2021-10-22 11:48:[address] Tod [address] [facility] PHOSPHORUS LEVEL 2021-10-22 11:48:00 Tod Glass V. [facility] IGG SUBCLASSES, SERUM 2021-10-22 11:48:00 [facility] IMMUNOGLOBULIN G SERUM 2021-10-22 11:48:00 [facility] IMMUNOGLOBULIN A SERUM 2021-10-22 11:48:00 [facility] Results CBC 2021-10-22 11:48:[address] [facility] MANUAL DIFFERENTIAL 2021-10-22 11:48:00 Tod Glass V. [facility] GLUCOSE LEVEL 2021-10-22 11:48:[address] [facility] BLOOD UREA NITROGEN 2021-10-22 11:48:00 Tod Glass V. [facility] ELECTROLYTE PANEL 2021-10-22 11:48:00 Tod Glass V. [facility] SERUM CREATININE 2021-10-22 11:48:00 Tod Glass V. [facility] .GLOMERULAR FILTRATION 2021-10-22 11:48:00 Tod Glass [facility] CALCIUM LEVEL TOTAL 2021-10-22 11:48:00 Tod Glass V. [facility] ALBUMIN LEVEL 2021-10-22 11:48:[address] [facility] ALKALINE PHOSPHATASE 2021-10-22 11:48:00 Tod Glass V. [facility] ALANINE AMINOTRANSFERASE 2021-10-22 11:48:00 Tod Glass V. [facility] ASPARTATE AMINOTRANSFERASE 2021-10-22 11:48:00 Tod Glass V. [facility] TOTAL PROTEIN 2021-10-22 11:48:[address] Tod [address] [facility] FRACTIONATED BILIRUBIN 2021-10-22 11:48:00 Tod Glass [facility] OSCILLATORY PEP 2021-10-22 01:00:[address] [facility] XR CHEST 1 VW 2021-10-21 20:44:[address] [facility] BLOODCULTURE 2021-10-21 14:09:[address] Tod [address] [facility] FUNGAL BLOODCULTURE 2021-10-21 14:09:00 Tod Glass V. [facility] COMPLETE BLOOD COUNT W/ 2021-10-21 11:02:00 Tod Glass [facility] DIFFERENTIAL [facility] COMPREHENSIVE METABOLIC 2021-10-21 11:02:00 Tod Glass [facility] PANEL [facility] MAGNESIUM LEVEL 2021-10-21 11:02:[address] [facility] PHOSPHORUS LEVEL 2021-10-21 11:02:00 Tod Glass V. [facility] Results CBC 2021-10-21 11:02:[address] Tod Glass V[address] [facility] MANUAL DIFFERENTIAL 2021-10-21 11:02:00 Tod Glass V. [facility] GLUCOSE LEVEL 2021-10-21 11:02:[address] Tod Glass V[address] [facility] BLOOD UREA NITROGEN 2021-10-21 11:02:00 Tod Glass V. [facility] ELECTROLYTE PANEL 2021-10-21 11:02:00 Tod Glass V. [facility] SERUM CREATININE 2021-10-21 11:02:00 Tod Glass V. [facility] .GLOMERULAR FILTRATION 2021-10-21 11:02:00 Tod Glass [facility] RATE [facility] CALCIUM LEVEL TOTAL 2021-10-21 11:02:00 Tod Glass V. [facility] ALBUMIN LEVEL 2021-10-21 11:02:[address] Tod Glass V[address] [facility] ALKALINE PHOSPHATASE 2021-10-21 11:02:00 Tod Glass V. [facility] ALANINE AMINOTRANSFERASE 2021-10-21 11:02:00 Tod Glass V. [facility] ASPARTATE AMINOTRANSFERASE 2021-10-21 11:02:00 Tod Glass [facility] TOTAL PROTEIN 2021-10-21 11:02:00 Tod Glass V[address] [facility] FRACTIONATED BILIRUBIN 2021-10-21 11:02:00 Tod Glass V. [facility] EKG, 12-LEAD (PORTABLE) 2021-10-21 00:00:[address] [facility] XR ABDOMEN 1 VW PORTABLE 2021-10-20 19:19:00 Tod Glass V. [facility] OSCILLATORY PEP 2021-10-20 19:00:[address] [facility] OSCILLATORY PEP 2021-10-20 13:00:[address] [facility] COMPLETE BLOOD COUNT W/ 2021-10-20 11:10:00 Tod Glass V. [facility] DIFFERENTIAL [facility] COMPREHENSIVE METABOLIC 2021-10-20 11:10:00 Tod Glass V. [facility] PANEL [facility] MAGNESIUM LEVEL 2021-10-20 11:10:[address] [facility] PHOSPHORUS LEVEL 2021-10-20 11:10:00 Tod Glass V. [facility] Results CBC 2021-10-20 11:10:[address] Tod Glass V[address] [facility] MANUAL DIFFERENTIAL 2021-10-20 11:10:00 Tod Glass V. [facility] GLUCOSE LEVEL 2021-10-20 11:10:[address] Tod [address] [facility] BLOOD UREA NITROGEN 2021-10-20 11:10:00 Tod Glass V. [facility] ELECTROLYTE PANEL 2021-10-20 11:10:00 Tod Glass V. [facility] SERUM CREATININE 2021-10-20 11:10:00 Tod Glass V. [facility] .GLOMERULAR FILTRATION 2021-10-20 11:10:00 Tod Glass [facility] RATE [facility] CALCIUM LEVEL TOTAL 2021-10-20 11:10:00 Tod Glass V. [facility] ALBUMIN LEVEL 2021-10-20 11:10:[address] [facility] ALKALINE PHOSPHATASE 2021-10-20 11:10:00 Tod Glass V. [facility] ALANINE AMINOTRANSFERASE 2021-10-20 11:10:00 Tod Glass V. Uni [facility] ASPARTATE AMINOTRANSFERASE 2021-10-20 11:10:00 Tod Glass [facility]. [facility] TOTAL PROTEIN 2021-10-20 11:10:[address] Tod [address] V[address] [facility] FRACTIONATED BILIRUBIN 2021-10-20 11:10:00 Tod Glass [facility] OSCILLATORY PEP 2021-10-20 01:00:[address] [facility] OSCILLATORY PEP 2021-10-19 19:00:[address] [facility] PATHOLOGY BIOPSY 2021-10-19 18:35:00 Edwige Rod [facility] INTERPRETATION [facility] UPPER GASTROINTESTINAL 2021-10-19 18:14:00 Edwige Rod [facility] ENDOSCOPY OF ESOPHAGUS, MD [facility] STOMACH, AND DUODENUM WITH Cente r BIOPSY OSCILLATORY PEP 2021-10-19 14:01:[address] [facility] COMPLETE BLOOD COUNT W/ 2021-10-19 12:18:00 Tod Glass V. [facility] DIFFERENTIAL [facility] COMPREHENSIVE METABOLIC 2021-10-19 12:18:00 Tod Glass V. [facility] PANEL [facility] MAGNESIUM LEVEL 2021-10-19 12:18:[address] [facility] PHOSPHORUS LEVEL 2021-10-19 12:18:00 Tod Glass V. [facility] Results CBC 2021-10-19 12:18:[address] Tod Glass V[address] [facility] MANUAL DIFFERENTIAL 2021-10-19 12:18:00 Tod Glass V. [facility] GLUCOSE LEVEL 2021-10-19 12:18:[address] Tod [address] V[address] [facility] BLOOD UREA NITROGEN 2021-10-19 12:18:00 Tod Glass V. [facility] ELECTROLYTE PANEL 2021-10-19 12:18:00 Tod Glass V. [facility] SERUM CREATININE 2021-10-19 12:18:00 Tod Glass V. [facility] .GLOMERULAR FILTRATION 2021-10-19 12:18:00 Tod Glass V. [facility] RATE [facility] CALCIUM LEVEL TOTAL 2021-10-19 12:18:00 Tod Glass V. [facility] ALBUMIN LEVEL 2021-10-19 12:18:[address] [facility] ALKALINE PHOSPHATASE 2021-10-19 12:18:00 Tod Glass V. [facility] ALANINE AMINOTRANSFERASE 2021-10-19 12:18:00 Tod Glass [facility]. [facility] ASPARTATE AMINOTRANSFERASE 2021-10-19 12:18:[address] Tod Glass [facility] [facility] TOTAL PROTEIN 2021-10-19 12:18:[address] Tod Glass V[address] [facility] FRACTIONATED BILIRUBIN 2021-10-19 12:18:00 Tod Glass V. [facility] XR CHEST 1 VW 2021-10-18 21:15:[address] [facility] POC GLUCOSE SCREEN 2021-10-18 11:47:00 Tod Glass V. [facility] COMPLETE BLOOD COUNT W/ 2021-10-18 09:25:00 Tod Glass V. [facility] DIFFERENTIAL [facility] COMPREHENSIVE METABOLIC 2021-10-18 09:25:00 Tod Glass V. [facility] PANEL [facility] MAGNESIUM LEVEL 2021-10-18 09:25:[address] [facility] PHOSPHORUS LEVEL 2021-10-18 09:25:00 Tod Glass V. [facility] Results CBC 2021-10-18 09:25:[address] Tod Glass V[address] [facility] MANUAL DIFFERENTIAL 2021-10-18 09:25:00 Tod Glass V. [facility] GLUCOSE LEVEL 2021-10-18 09:25:[address] Tod [address] V[address] [facility] BLOOD UREA NITROGEN 2021-10-18 09:25:00 Tod Glass V. [facility] ELECTROLYTE PANEL 2021-10-18 09:25:00 Tod Glass V. [facility] SERUM CREATININE 2021-10-18 09:25:00 Tod Glass V. [facility] .GLOMERULAR FILTRATION 2021-10-18 09:25:00 Tod Glass [facility] CALCIUM LEVEL TOTAL 2021-10-18 09:25:00 Tod Glass V. Universi ty [facility] ALBUMIN LEVEL 2021-10-18 09:25:[address] Tod Glass V[address] [facility] ALKALINE PHOSPHATASE 2021-10-18 09:25:00 Tod Glass V. [facility] ity [facility] ALANINE AMINOTRANSFERASE 2021-10-18 09:25:00 Tod Glass V. [facility] ASPARTATE AMINOTRANSFERASE 2021-10-18 09:25:00 Tod Glass [facility]. [facility] TOTAL PROTEIN 2021-10-18 09:25:[address] Tod Glass V[address] [facility] FRACTIONATED BILIRUBIN 2021-10-18 09:25:00 Tod Glass [facility] OSCILLATORY PEP 2021-10-18 07:00:[address] Tod [address] V[address] [facility] OSCILLATORY PEP 2021-10-18 01:00:[address] [facility] OSCILLATORY PEP 2021-10-17 19:01:[address] [facility] VANCOMYCIN LEVEL TROUGH 2021-10-17 16:50:[address] [facility] OSCILLATORY PEP 2021-10-17 14:31:[address] Tod [address] V[address] [facility] FUNGITELL, SERUM 2021-10-17 08:59:00 Tod Glass V. [facility] COMPLETE BLOOD COUNT W/ 2021-10-17 08:59:00 Tod Glass V. [facility] DIFFERENTIAL [facility] COMPREHENSIVE METABOLIC 2021-10-17 08:59:00 Tod Glass V. [facility] MAGNESIUM LEVEL 2021-10-17 08:59:[address] V[address] [facility] PHOSPHORUS LEVEL 2021-10-17 08:59:00 Tod Glass V. [facility] Results CBC 2021-10-17 08:59:[address] Tod Glass V[address] [facility] MANUAL DIFFERENTIAL 2021-10-17 08:59:00 Tod Glass V. [facility] GLUCOSE LEVEL 2021-10-17 08:59:[address] Tod Glass V[address] [facility] BLOOD UREA NITROGEN 2021-10-17 08:59:00 Tod Glass V. [facility] ELECTROLYTE PANEL 2021-10-17 08:59:00 Tod Glass V. [facility] SERUM CREATININE 2021-10-17 08:59:00 Tod Glass V. [facility] .GLOMERULAR FILTRATION 2021-10-17 08:59:00 Tod Glass [facility] CALCIUM LEVEL TOTAL 2021-10-17 08:59:00 Tod Glass V. [facility] ALBUMIN LEVEL 2021-10-17 08:59:[address] Tod Glass V[address] [facility] ALKALINE PHOSPHATASE 2021-10-17 08:59:00 Tod Glass V. [facility] ALANINE AMINOTRANSFERASE 2021-10-17 08:59:00 Tod Glass [facility]. [facility] ASPARTATE AMINOTRANSFERASE 2021-10-17 08:59:00 Tod Glass [facility]. [facility] TOTAL PROTEIN 2021-10-17 08:59:[address] Tod [address] V[address] [facility] FRACTIONATED BILIRUBIN 2021-10-17 08:59:00 Tod Glass [facility] PROCALCITONIN 2021-10-17 08:59:00 Tod Glass V. [place] o [facility] [place] MODIFIED BARIUM SWALLOW 2021-10-16 19:57:25 [facility] SPEECH [facility] RESPIRATORY VIRAL PANEL, 2021-10-16 13:05:00 Tod Glass V. [facility] [place] NASOPHARYNGEAL SWAB [facility] RESPIRATORY PCR PANEL, RN LPN CNA 2021-10-16 13:05:00 Tod Glass V. [facility] [place] SWAB [facility] RESPIRATORY PCR PANEL PATH 2021-10-16 13:05:00 [facility] REVIEW [facility] MRSA SCREENING CULTURE 2021-10-15 21:25:00 [facility] TROPONIN T 2021-10-15 18:15:00 Verónica Thakkar [place] o f [facility] CT CHEST PULMONARY 2021-10-15 17:58:06 Verónica Thakkar [facility] EMBOLISM CONTRAST [facility] LEGIONELLA URINE ANTIGEN 2021-10-15 17:17:00 Verónica Thakkar [facility] STREPTOCOCCUS PNEUMONIAE 2021-10-15 17:17:00 Verónica Thakkar [facility] URINE ANTIGEN [facility] STREPTOCOCCAL URINE 2021-10-15 17:17:00 Verónica Thakkar [facility] ANTIGEN PATH REVIEW [facility] LEGIONELLA URINE ANTIGEN 2021-10-15 17:17:00 Verónica Thakkar Uni [facility] REVIEW [facility] FUNGITELL, SERUM 2021-10-15 16:43:00 Bijan Verónica [facility] COVID-19 (SARS-COV-2) 2021-10-15 15:08:00 Verónica Thakkar [facility] ASYMPTOMATIC-LT [facility] BLOODCULTURE 2021-10-15 15:08:[address] [facility] LOWER RESPIRATORY CULTURE 2021-10-15 15:08:00 Verónica [facility]kar [facility] W/ GRAM STAIN [facility] COMPREHENSIVE METABOLIC 2021-10-15 15:08:00 Bijan Verónica [facility] PANEL [facility] MAGNESIUM LEVEL 2021-10-15 15:08:00 Bijan [facility] PHOSPHORUS LEVEL 2021-10-15 15:08:00 Bijan [facility] LACTATE DEHYDROGENASE 2021-10-15 15:08:00 Bijan Verónica [facility] PROCALCITONIN 2021-10-15 15:08:00 Bijan [facility] TROPONIN T 2021-10-15 15:08:00 Bijan [facility] CREATINE KINASE 2021-10-15 15:08:00 Bijan [facility] CKMB 2021-10-15 15:08:00 Bijan [facility] NT PRO BNP 2021-10-15 15:08:00 Bijan [facility] COMPLETE BLOOD COUNT W/ 2021-10-15 15:08:00 Bijan Verónica [facility] DIFFERENTIAL [facility] PROTHROMBIN TIME 2021-10-15 15:08:00 Bijan [facility] APTT 2021-10-15 15:08:00 Bijan [facility] GLUCOSE LEVEL 2021-10-15 15:08:00 Bijan [facility] BLOOD UREA NITROGEN 2021-10-15 15:08:00 Bijan Verónica [facility] ELECTROLYTE PANEL 2021-10-15 15:08:00 Bijan [facility] SERUM CREATININE 2021-10-15 15:08:00 Bijan [facility] .GLOMERULAR FILTRATION 2021-10-15 15:08:00 Verónica Thakkar [facility] RATE [facility] CALCIUM LEVEL TOTAL 2021-10-15 15:08:00 Verónica Thakkar [facility] ALBUMIN LEVEL 2021-10-15 15:08:[address] [facility] ALKALINE PHOSPHATASE 2021-10-15 15:08:00 Verónica Thakkar [facility] ALANINE AMINOTRANSFERASE 2021-10-15 15:08:00 Verónica Thakkar [facility] ASPARTATE AMINOTRANSFERASE 2021-10-15 15:08:[address] Ver[address]akkar [facility] TOTAL PROTEIN 2021-10-15 15:08:00 Bijan [facility] FRACTIONATED BILIRUBIN 2021-10-15 15:08:00 Verónica Thakkar [facility] Results CBC 2021-10-15 15:08:00 Bijan [facility] MANUAL DIFFERENTIAL 2021-10-15 15:08:00 Verónica Thakkar [facility] XR CHEST 1 VW 2021-10-15 14:45:00 Bijan [facility] EKG, 12-LEAD (PORTABLE) 2021-10-15 00:00:[address] [facility] COMPLETE BLOOD COUNT W/ 2021-09-05 11:48:00 Bebo [facility] DIFFERENTIAL [facility] COMPREHENSIVE METABOLIC 2021-09-05 11:48:00 Bebo [facility] PANEL [facility] MAGNESIUM LEVEL 2021-09-05 11:48:00 Bebo [facility] PHOSPHORUS LEVEL 2021-09-05 11:48:00 Bebo [facility] Results CBC 2021-09-05 11:48:00 Inez Lagunas [place] o [facility] MANUAL DIFFERENTIAL 2021-09-05 11:48:00 [facility] GLUCOSE LEVEL 2021-09-05 11:48:00 Bebo [facility] o [facility] BLOOD UREA NITROGEN 2021-09-05 11:48:00 [facility] ELECTROLYTE PANEL 2021-09-05 11:48:00 Bebo [facility] SERUM CREATININE 2021-09-05 11:48:00 Bebo [facility] .GLOMERULAR FILTRATION 2021-09-05 11:48:00 [facility] CALCIUM LEVEL TOTAL 2021-09-05 11:48:00 [facility] ALBUMIN LEVEL 2021-09-05 11:48:00 Inez Lagunas [place] o [facility] ALKALINE PHOSPHATASE 2021-09-05 11:48:00 Bebo [facility] ity [facility] ALANINE AMINOTRANSFERASE 2021-09-05 11:48:00 Inez Lagunas [facility] ASPARTATE AMINOTRANSFERASE 2021-09-05 11:48:00 Inez [facility]as [facility] TOTAL PROTEIN 2021-09-05 11:48:00 Inez Lagunas [place] o [facility] FRACTIONATED BILIRUBIN 2021-09-05 11:48:00 Inez Lagunas Unive rsity [facility] STREPTOCOCCUS PNEUMONIAE 2021-09-04 19:38:00 Inez Lagunas [facility] [place] URINE ANTIGEN [facility] LEGIONELLA URINE ANTIGEN 2021-09-04 19:38:00 Bebo Mini [facility] LEGIONELLA URINE ANTIGEN 2021-09-04 19:38:00 Inez Lagunas [facility] [place] PATH REVIEW [facility] STREPTOCOCCAL URINE 2021-09-04 19:38:00 Inez Lagunas Universi ty [facility] ANTIGEN PATH REVIEW [facility] LOWER RESPIRATORY CULTURE 2021-09-04 19:36:00 Inez [facility]as [facility] W/ GRAM STAIN [facility] BASIC METABOLIC PANEL, 2021-09-04 09:51:00 [facility] CALCIUM TOTAL [facility] MAGNESIUM LEVEL 2021-09-04 09:51:00 Bijan [facility] PHOSPHORUS LEVEL 2021-09-04 09:51:00 Bijan [facility] TROPONIN T 2021-09-04 09:51:[address] [facility] GLUCOSE LEVEL 2021-09-04 09:51:00 Bijan [facility] BLOOD UREA NITROGEN 2021-09-04 09:51:00 Bijan [facility] ELECTROLYTE PANEL 2021-09-04 09:51:00 Bijan [facility] SERUM CREATININE 2021-09-04 09:51:00 Bijan [facility] .GLOMERULAR FILTRATION 2021-09-04 09:51:00 Verónica Thakkar [facility] RATE [facility] CALCIUM LEVEL TOTAL 2021-09-04 09:51:00 Bijan Verónica [facility] TROPONIN T 2021-09-04 03:49:00 Bijan [facility] CREATINE KINASE 2021-09-04 03:49:00 Bijan [facility] CKMB 2021-09-04 03:49:00 Bijan [facility] CT CHEST PULMONARY 2021-09-04 03:46:45 Bijan Verónica [facility] EMBOLISM W CONTRAST [facility] XR CHEST 1 VW 2021-09-03 23:40:[address] [facility] RESPIRATORY VIRAL PANEL + 2021-09-03 23:14:00 Jyoti Morales [facility] COVID-19, NASOPHARYNGEAL MD [facility] Cancer [facility] Results CBC 2021-09-03 21:54:00 Jyoti Morales [place] o [facility] MANUAL DIFFERENTIAL 2021-09-03 21:54:00 Jyoti Morales [facility] GLUCOSE LEVEL 2021-09-03 21:54:00 Jyoti Morales [place] o f [facility] BLOOD UREA NITROGEN 2021-09-03 21:54:00 Jyoti Morales [facility] ELECTROLYTE PANEL 2021-09-03 21:54:00 Jyoti Morales [facility] SERUM CREATININE 2021-09-03 21:54:00 Jyoti Morales [facility] .GLOMERULAR FILTRATION 2021-09-03 21:54:00 Jyoti Morales [facility] RATE [facility] CALCIUM LEVEL TOTAL 2021-09-03 21:54:00 Jyoti Morales [facility] ALBUMIN LEVEL 2021-09-03 21:54:[address] [facility] ALKALINE PHOSPHATASE 2021-09-03 21:54:00 Jyoti Morales [facility] ALANINE AMINOTRANSFERASE 2021-09-03 21:54:00 [facility] ASPARTATE AMINOTRANSFERASE 2021-09-03 21:54:00 [facility] TOTAL PROTEIN 2021-09-03 21:54:00 Jyoti Morales [facility] FRACTIONATED BILIRUBIN 2021-09-03 21:54:00 Jyoti Morales [facility] COMPLETE BLOOD COUNT W/ 2021-09-03 21:54:00 Jyoti Morales [facility] DIFFERENTIAL [facility] COMPREHENSIVE METABOLIC 2021-09-03 21:54:00 Jyoti Morales [facility] PANEL [facility] MAGNESIUM LEVEL 2021-09-03 21:54:[address] [facility] PHOSPHORUS LEVEL 2021-09-03 21:54:00 Jyoti Morales [facility] NT PRO BNP 2021-09-03 21:54:[address] [facility] TROPONIN T 2021-09-03 21:54:[address] [facility] EKG, 12-LEAD (PORTABLE) 2021-09-03 00:00:[address] [facility] CT CHEST W CONTRAST 2021-08-13 14:15:[address] [facility] POC CREATININE 2021-08-13 13:30:00 Nicole Del Rosario [facility] REPLACEMENT OF GASTROSTOMY 2021-05-22 04:50:00 Claude Tobin [facility] TUBE, PERCUTANEOUS, [facility] Cancer INCLUDES REMOVAL, WHEN Center PERFORMED, WITHOUT IMAGING OR ENDOSCOPIC GUIDANCE; NOT REQUIRING REVISION OF GASTROSTOMY TRACT CT CHEST ABDOMEN PELVIS W 2021-04-20 19:35:00 Jackie Mendez [facility] CONTRAST [facility] POC CREATININE 2021-04-20 18:02:00 [facility] 2021-04-20 16:10:00 Jackie Mendez [facility] Plan of Care Planned Activity Planned Date Details Comments Source Future Scheduled 2022-03-12 COVID-19 Vaccination [facility] [place] Test 13:14:08 (#1) [code = COVID-19 [facility]ination (#1)] Center Future Scheduled 2022-02-28 COVID-19 Vaccination [facility] [place] Test 13:30:15 (#1) [code = COVID-19 MD [facility] Vaccination (#1)] Center Encounters Start End Encounter Admission Attending Care Care Encounter Source Date/Time Date/Time Type Type Clinicians Facility Department ID 2021-04-30 Emergency [facility] [id number] Univers 04:07:38 ity of [facility] 2021-04-29 Emergency [facility] [id number] Univers 20:45:51 ity of [facility] 2020-04-12 Outpatient MDA ANUJ [id number] 16:09:07 Francojaniceluis zimmerman 2020-02-14 Outpatient SYSTEM, ANUJ LESLIE [id number] 13:23:33 PROVIDER Bakari [facility] 2021-12-28 2021-12-28 Nurse Willis, 1.2.840.1 [id number] Univers 00:00:00 00:00:00 Triage Constantine 48003.1.1 ity of 3.412.2.7 [place] .3.061191 MD Haines8 [facility] 2021-12-28 2021-12-28 Documentat Luis Angel, 1.2.840.1 [id number] 1 [id number] Univers 00:00:00 00:00:00 ion Maria Fernanda V. 99819.1.1 ity of 3.412.2.7 [place] .3.627513 MD Haines8 [facility] 2021-12-28 2021-12-28 Nurse Willis 1.2.840.1 [id number] [id number] Univers 00:00:00 00:00:00 Triage Constantine 30202.1.1 ity of 3.412.2.7 [place] .3.998009 MD Beasley [facility] 2021-12-28 2021-12-28 Documentat Luis Angel 1.2.840.1 [id number] 1 [id number] Univers 00:00:00 00:00:00 ion Maria Fernanda V. 45276.1.1 ity of 3.412.2.7 [place] .3.639652 MD Haines8 [facility] 2021-12-20 2021-12-20 Telephone Ger 1.2.840.1 [id number] 1 [id number] Univers 00:00:00 00:00:00 Lolita 41648.1.1 ity of [place] 3.412.2.7 [place] .3.338174 MD Haines8 [facility] 2021-12-20 2021-12-20 Telephone [place], 1.2.840.1 [id number] 1 [id number] Univers 00:00:00 00:00:00 Lolita 02100.1.1 ity of [place] 3.412.2.7 [place] .3.280215 MD Haines8 [facility] 2021-12-11 2021-12-11 Telephone Nuvia, 1.2.840.1 [id number] 1093 [id number] Univers 00:00:00 00:00:00 Bibiana C 41223.1.1 ity of 3.412.2.7 [place] .3.911488 MD Haines8 [facility] 2021-12-11 2021-12-11 Telephone Nuvia, 1.2.840.1 [id number] 1093 [id number] Univers 00:00:00 00:00:00 Bibiana C 74135.1.1 ity of 3.412.2.7 [place] .3.665939 MD Haines8 [facility] 2021-12-05 2021-12-05 Telephone Mehta, 1.2.840.1 [id number] 1093 [id number] Univers 00:00:00 00:00:00 Kasie Lehman 21652.1.1 i ty of 3.412.2.7 [place] .3.610537 MD Hanies8 [facility] 2021-12-05 2021-12-05 Telephone Tyson, 1.2.840.1 [id number] [id number] Univers 00:00:00 00:00:00 Kasie Lehman 14435.1.1 i ty of 3.412.2.7 [place] .3.174710 MD Haines8 [facility] 2021-12-01 2021-12-01 Nurse Marshall 1.2.840.1 [id number] Univers 00:00:00 00:00:00 Mario Lehman 00836.1.1 i ty of 3.412.2.7 [place] .3.180220 MD Haines8 [facility] 2021-12-01 2021-12-01 Nurse Marshall, 1.2.840.1 [id number] Univers 00:00:00 00:00:00 Triage Erin Lehman 14988.1.1 i ty of 3.412.2.7 [place] .3.536482 MD Haines8 [facility] 2021-11-13 2021-11-13 Raul Clark, 1.2.840.1 [id number] Univers 00:00:00 00:00:00 Only Stella 14258.1.1 it y of 3.412.2.7 [place] .3Yancy339123 MD Haines8 [facility] 2021-11-13 2021-11-13 Telephone Edmund, 1.2.840.1 [id number] 1092 [id number] Univers 00:00:00 00:00:00 Daisy Zimmerman 99945.1.1 it y of 3.412.2.7 [place] .3.264677 MD Haines8 [facility] 2021-11-13 2021-11-13 Raul Clark, 1.2.840.1 [id number] Univers 00:00:00 00:00:00 Only Stella 30964.1.1 it y of 3.412.2.7 [place] .3.179611 MD Haines8 [facility] 2021-11-13 2021-11-13 Telephone Edmund, 1.2.840.1 [id number] 1092 [id number] Univers 00:00:00 00:00:00 Daisy Zimmerman 37988.1.1 it y of 3.412.2.7 [place] .3.184016 MD Beasley [facility] 2021-11-02 2021-11-02 Fito Huber 1.2.840.1 [id number] 1092 [id number] Univers 00:00:00 00:00:00 Only Herrera 51027.1.1 ity of 3.412.2.7 [place] .3Yancy316994 MD Beasley [facility] 2021-11-02 2021-11-02 Karishma Haider 1.2.840.1 [id number] Univers 00:00:00 00:00:00 Triage J 28652.1.1 ity of 3.412.2.7 [place] .3.537678 .8 [facility] 2021-11-02 2021-11-02 Raul GutierresFito 1.2.840.1 [id number] 1092 [id number] Univers 00:00:00 00:00:00 Only Herrera 64633.1.1 ity of 3.412.2.7 [place] .3.732460 .8 [facility] 2021-11-02 2021-11-02 Nurse Karishma Chu 1.2.840.1 [id number] 10 [id number] Univers 00:00:00 00:00:00 Triage J 82618.1.1 ity of 3.412.2.7 [place] .3.348332 .8 [facility] 2021-10-15 2021-10-24 [facility] 1.2.840.1 [id number] Univers 09:35:00 17:00:00 Encounter Tanner Bowserora 52072.1.1 ity of [place], Ed 3.412.2.7 Gio as Glass, Son V. .3.152560 Boni Dominguez .8 [facility] 2021-10-15 2021-10-24 [facility] 1.2.840.1 [id number] Univers 09:35:00 17:00:00 Encounter Napoleon Mayoora 82572.1.1 ity of [place], Ed 3.412.2.7 Gio as Glass, Son V. .3.859384 Boni Dominguez .8 [facility] 2021-10-24 2021-10-24 Nurse Paz 1.2.840.1 [id number] Univers 00:00:00 00:00:00 Triage Amsha 71815.1.1 ity of 3.412.2.7 [place] .3.384103 .8 [facility] 2021-10-24 2021-10-24 Nurse Paz 1.2.840.1 [id number] Univers 00:00:00 00:00:00 Triage Amsha 53825.1.1 ity of 3.412.2.7 [place] .3.653056 MD Haines8 [facility] 2021-10-23 2021-10-23 Inpatient NICHOLE OBRIEN [facility] [id number] 20:59:49 21:16:07 BONI Bakari [facility] 2021-10-19 2021-10-19 Surgery Rod, 1.2.840.1 [id number] Univers 15:10:00 15:50:00 Gibbons 78404.1.1 ity of Ali 3.412.2.7 [place] .3.536886 MD Haines8 [facility] 2021-10-19 2021-10-19 Surgery Rod, 1.2.840.1 [id number] Univers 15:10:00 15:50:00 Gibbons 50388.1.1 ity of Ali 3.412.2.7 [place] .3.148253 MD Beasley [facility] 2021-10-19 2021-10-19 Anesthesia Jenise Degroot 1.2.840.1 [id number] Univers 13:24:00 13:49:00 Event Dhiraj Fry 02854.1.1 ity of 3.412.2.7 [place] .3.202306 MD Beasley [facility] 2021-10-19 2021-10-19 Anesthesia Jenise Degroot 1.2.840.1 [id number] Univers 13:24:00 13:49:00 Event Dhiraj Fry 84899.1.1 ity of 3.412.2.7 [place] .3.649283 MD Beasley [facility] 2021-10-18 2021-10-18 Prep for Jacquelyn, 1.2.840.1 [id number] Univers 00:00:00 00:00:00 Surgery Shena 26512.1.1 [place] .3.364265 MD Beasley [facility] 2021-10-18 2021-10-18 Prep for Jacquelyn, 1.2.840.1 [id number] [facility] [place] [facility] 00:00:00 00:00:00 Surgery Shena 54912.1.1 [place] .3.354637 MD Beasley [facility] 2021-10-17 2021-10-17 Inpatient NICHOLE GLASS SON MDA MDA [id number] 11:46:00 11:46:04 [facility] 2021-10-16 2021-10-16 Inpatient NICHOLE WASHINGTON, MDA MDA [id number] 14:52:17 14:52:20 [facility] 2021-10-16 2021-10-16 Inpatient NICHOLE WASHINGTON, MDA MDA [id number] 10:37:11 10:37:14 MARIA FERNANDA [facility] 2021-10-16 2021-10-16 Inpatient NICHOLE WASHINGTON, MDA MDA [id number] 10:05:03 10:05:06 MARIA FERNANDA [facility] 2021-10-15 2021-10-15 Inpatient [facility] MDA MDA [id number] 23:20:17 23:40:10 [facility] 2021-10-15 2021-10-15 Travel 1.2.840.1 1.2.654.928 [id number] Univers 00:00:00 00:00:00 17718.1.1 350.1.13.41 ity of 3.412.2.7 [place].3.698 [place] .3.130644 084.8 MD Beasley [facility] 2021-10-15 2021-10-15 Travel 1.2.840.1 1.2.289.425 [id number] Univers 00:00:00 00:00:00 79656.1.1 350.1.13.41 ity of 3.412.2.7 2.2.7.3.698 [place] .3.032548 084Yancy8 MD Haines8 [facility] 2021-10-11 2021-10-11 Orders Amber, 1.2.840.1 [id number] Univers 00:00:00 00:00:00 Only Stella 40979.1.1 it y of 3.412.2.7 [place] .3.706462 MD Haines8 [facility] 2021-10-11 2021-10-11 Orders Amber, 1.2.840.1 [id number] Univers 00:00:00 00:00:00 Only Stella 20138.1.1 it y of 3.412.2.7 [place] .3.863157 MD Haines8 [facility] 2021-10-10 2021-10-10 Orders Shantal 1.2.840.1 [id number] Univers 00:00:00 00:00:00 Only Kaylyn 70715.1.1 ity of [place]hawn 3.412.2.7 [place] .3.905884 MD Haines8 [facility] 2021-10-10 2021-10-10 Nurse Moran, 1.2.840.1 [id number] Univers 00:00:00 00:00:00 Triage Stella Stewart 04397.1.1 ity of 3.412.2.7 [place] .3.272280 MD Beasley [facility] 2021-10-10 2021-10-10 Uzma Thrasher 1.2.840.1 [id number] [id number] Univers 00:00:00 00:00:00 Ileana Ann 65835.1.1 i ty of 3.412.2.7 [place] .3.753017 MD Haines8 [facility] 2021-10-10 2021-10-10 Orders Shantal 1.2.840.1 [id number] Univers 00:00:00 00:00:00 Only Kaylyn 38821.1.1 ity of [place]hawn 3.412.2.7 [place] .3.580329 MD Haines8 [facility] 2021-10-10 2021-10-10 Nurse Moran, 1.2.840.1 [id number] Univers 00:00:00 00:00:00 Triage Stella Pat 24560.1.1 ity of 3.412.2.7 [place] .3.056718 MD Haines8 [facility] 2021-10-10 2021-10-10 Telephone Price, 1.2.840.1 [id number] [id number] Univers 00:00:00 00:00:00 Ileana Seth 27382.1.1 i ty of 3.412.2.7 [place] .3.767918 MD Haines8 [facility] 2021-09-03 2021-09-07 [facility] 1.2.840.1 [id number] Univers 16:59:00 15:45:00 Encounter Mehrdad Rod 79146.1.1 ity of EstesGurpreet nieves 3.412.2.7 [place] .3.354338 MD Beasley [facility] 2021-09-03 2021-09-07 [facility] 1.2.840.1 [id number] Univers 16:59:00 15:45:00 Encounter Mehrdad Rod 69919.1.1 ity of [place] Gurpreet 3.412.2.7 [place] .3.841014 MD Beasley [facility] 2021-09-07 2021-09-07 Travel 1.2.840.1 1.2.479.941 [id number] [id number] Univers 00:00:00 00:00:00 82936.1.1 350.1.13.41 ity of 3.412.2.7 2.2.7.3.698 [place] .3.834777 084.8 MD Haines8 [facility] 2021-09-07 2021-09-07 Travel 1.2.840.1 1.2.068.522 [id number] Univers 00:00:00 00:00:00 62300.1.1 350.1.13.41 ity of 3.412.2.7 2.[place].7.3.698 [place] .3.600098 084.8 MD Beasley [facility] 2021-09-05 2021-09-05 Inpatient NICHOLE HART [facility] [id number] 11:14:45 11:38:29 SOFI smith erasmo 2021-09-03 2021-09-03 Travel 1.2.840.1 1.2.831.892 2940 [id number] Univers 00:00:00 00:00:00 23053.1.1 350.1.13.41 ity of 3.412.2.7 2.2.7.3.698 [place] .3.116966 084.8 MD Beasley [facility] 2021-09-03 2021-09-03 Telephone John 1.2.840.1 [id number] [id number] Univers 00:00:00 00:00:00 Michael Lehman 06565.1.1 ity of 3.412.2.7 [place] .3.823801 MD Beasley [facility] 2021-09-03 2021-09-03 Travel 1.2.840.1 1.2.284.475 3479 [id number] Univers 00:00:00 00:00:00 92931.1.1 350.1.13.41 ity of 3.412.2.7 2.2.7.3.698 [place] .3.180833 084.8 MD Beasley [facility] 2021-09-03 2021-09-03 Telephone John 1.2.840.1 [id number] Univers 00:00:00 00:00:00 Michael Lehman 76098.1.1 ity of 3.412.2.7 [place] .3.603467 MD Beasley [facility] 2021-08-22 2021-08-22 Uzma Clark 1.2.840.1 [id number] 1089 [id number] Univers 00:00:00 00:00:00 Stella 29043.1.1 it y of 3.412.2.7 [place] .3.228374 MD Beasley [facility] 2021-08-22 2021-08-22 Raul Clark 1.2.840.1 [id number] Univers 00:00:00 00:00:00 Only Stella 59135.1.1 it y of 3.412.2.7 [place] .3Yancy442464 MD Haines8 [facility] 2021-08-22 2021-08-22 Uzma Clark 1.2.840.1 [id number] 1089 [id number] Univers 00:00:00 00:00:00 Stella 19423.1.1 it y of 3.412.2.7 [place] .3.641346 MD Haines8 [facility] 2021-08-22 2021-08-22 Raul Clark 1.2.840.1 [id number] Univers 00:00:00 00:00:00 Only Stella 96035.1.1 it y of 3.412.2.7 [place] .3Yancy131546 MD Haines8 [facility] 2021-08-20 2021-08-20 Raul Sanon 1.2.840.1 [id number] Univers 00:00:00 00:00:00 Only Lela A 64650.1.1 ity of 3.412.2.7 [place] .3.594813 MD Haines8 [facility] 2021-08-20 2021-08-20 Raul Sanon 1.2.840.1 [id number] Univers 00:00:00 00:00:00 Only Lela A 28917.1.1 ity of 3.412.2.7 [place] .3Yancy030731 MD Haines8 [facility] 2021-08-18 2021-08-18 Raul Clark 1.2.840.1 [id number] Univers 00:00:00 00:00:00 Only Stella 86797.1.1 it y of 3.412.2.7 [place] .3Yancy502271 MD Haines8 [facility] 2021-08-18 2021-08-18 Raul Washington 1.2.840.1 [id number] 1089 [id number] Univers 00:00:00 00:00:00 Only Maria Fernanda V. 14342.1.1 ity of 3.412.2.7 [place] .3.486062 MD Haines8 [facility] 2021-08-18 2021-08-18 Raul Amber, 1.2.840.1 [id number] Univers 00:00:00 00:00:00 Only Stella 01097.1.1 it y of 3.412.2.7 [place] .3.298950 MD Haines8 [facility] 2021-08-18 2021-08-18 Raul Washington, 1.2.840.1 [id number] Univers 00:00:00 00:00:00 Only Maria Fernanda Fu 20544.1.1 ity of 3.412.2.7 [place] .3.884670 MD Haines8 [facility] 2021-08-17 2021-08-17 Telephone Zulema Cedillo 1.2.840.1 [id number] 1 [id number] Univers 00:00:00 00:00:00 A 74770.1.1 ity of 3.412.2.7 [place] .3.509998 MD Haines8 [facility] 2021-08-17 2021-08-17 Telephone Zulema Cedillo 1.2.840.1 [id number] 1 [id number] Univers 00:00:00 00:00:00 A 25981.1.1 ity of 3.412.2.7 [place] .3Yancy554467 MD Haines8 [facility] 2021-08-14 2021-08-14 Office Tadeo, 1.2.840.1 [id number] Univers 12:15:00 13:20:09 Visit Herrera Cheema.1.1 ity of 3.412.2.7 [place] .3Yancy245866 MD Haines8 [facility] 2021-08-14 2021-08-14 Office NICHOLE Piedra, 1.2.840.1 [id number] Univers 12:15:00 13:20:09 Visit Herrera 63939.1.1 ity of 3.412.2.7 [place] .3.831577 MD Haines8 [facility] 2021-08-14 2021-08-14 Office Patricioella, 1.2.840.1 [id number] [id number] Univers 08:30:00 10:28:29 Visit Maria Fernanda CervantesYancy 29272.1.1 ity of 3.412.2.7 [place] .3.014407 MD Haines8 [facility] 2021-08-14 2021-08-14 Office EL Luis Angel, 1.2.840.1 [id number] [id number] Univers 08:30:00 10:28:29 Visit Maria Fernanda BillyYancy 04444.1.1 ity of 3.412.2.7 [place] .3.501047 MD Haines8 [facility] 2021-08-14 2021-08-14 Raul Banda, 1.2.840.1 [id number] Univers 00:00:00 00:00:00 Only Jacki 57684.1.1 ity of 3.412.2.7 [place] .3.543940 MD Haines8 [facility] 2021-08-14 2021-08-14 Raul Duckworth, 1.2.840.1 [id number] Univers 00:00:00 00:00:00 Only Sarah Ybarra 24331.1.1 ity of 3.412.2.7 [place] .3.379519 MD Haines8 [facility] 2021-08-14 2021-08-14 Travel 1.2.840.1 1.2.535.448 [id number] Univers 00:00:00 00:00:00 99647.1.1 350.1.13.41 ity of 3.412.2.7 2.2.7.3.698 [place] .3.502717 084.8 MD Beasley [facility] 2021-08-14 2021-08-14 Raul Banda, 1.2.840.1 [id number] Univers 00:00:00 00:00:00 Only Jacki 96107.1.1 ity of 3.412.2.7 [place] .3.020750 MD Haines8 [facility] 2021-08-14 2021-08-14 Orders Caranto, 1.2.840.1 [id number] Univers 00:00:00 00:00:00 Only Sarah Ybarra 84269.1.1 ity of 3.412.2.7 [place] .3.155655 MD Haines8 [facility] 2021-08-14 2021-08-14 Travel 1.2.840.1 1.2.913.954 0375 [id number] Univers 00:00:00 00:00:00 85591.1.1 350.1.13.41 ity of 3.412.2.7 2.2.7.3.698 [place] .3.232556 084.8 MD Haines8 [facility] 2021-08-13 2021-08-13 [facility] 1.2.840.1 [id number] Univers 09:45:00 23:59:00 Encounter 52768.1.1 it y of 3.412.2.7 [place] .3.890389 MD Haines8 [facility] 2021-08-13 2021-08-13 [facility] 1.2.840.1 [id number] Univers 09:45:00 23:59:00 Encounter 07899.1.1 it y of 3.412.2.7 [place] .3.828062 MD Haines8 [facility] 2021-08-13 2021-08-13 [facility] 1.2.840.1 [id number] Univers 06:35:00 09:44:00 Encounter Nicole 18426.1.1 it y of [place] 3.412.2.7 [place] .3.498964 MD Haines8 [facility] 2021-08-13 2021-08-13 [facility], 1.2.840.1 [id number] Univers 06:35:00 09:44:00 Encounter Nicole 69051.1.1 it y of [place] 3.412.2.7 [place] .3.202622 MD Haines8 [facility] 2021-08-13 2021-08-13 Raul Del Rosario, 1.2.840.1 [id number] Univers 00:00:00 00:00:00 Only Nicole 89037.1.1 ity of [place] 3.412.2.7 [place] .3.638596 MD Haines8 [facility] 2021-08-13 2021-08-13 Travel 1.2.840.1 1.2.006.254 [id number] Univers 00:00:00 00:00:00 72377.1.1 350.1.13.41 ity of 3.412.2.7 2.2.7.3.698 [place] .3.422151 084.8 MD Beasley [facility] 2021-08-13 2021-08-13 Raul Del Rosario, 1.2.840.1 [id number] Univers 00:00:00 00:00:00 Only Nicole 75877.1.1 ity of [place] 3.412.2.7 [place] .3.449319 MD Beasley [facility] 2021-08-13 2021-08-13 Travel 1.2.840.1 1.2.730.184 [id number] [id number] Univers 00:00:00 00:00:00 41575.1.1 350.1.13.41 ity of 3.412.2.7 2.2.7.3.698 [place] .3.070652 084.8 MD Beasley [facility] 2021-08-11 2021-08-11 Angel Washington 1.2.840.1 [id number] 1089 [id number] Univers 00:00:00 00:00:00 Maria Fernanda Fu 27523.1.1 ity of 3.412.2.7 [place] .3.353174 MD Beasley [facility] 2021-08-11 2021-08-11 Angel Washington 1.2.840.1 [id number] 1089 [id number] Univers 00:00:00 00:00:00 Maria Fernanda VYancy 68676.1.1 ity of 3.412.2.7 [place] .3.069779 MD Haines8 [facility] 2021-08-07 2021-08-07 Raul Fenton, 1.2.840.1 [id number] Univers 00:00:00 00:00:00 Only [place] 53937.1.1 ity of 3.412.2.7 [place] .3.065378 MD Haines8 [facility] 2021-08-07 2021-08-07 Raul Fenton, 1.2.840.1 [id number] Univers 00:00:00 00:00:00 Only Abdirizak 24491.1.1 ity of 3.412.2.7 [place] .3.994112 MD Haines8 [facility] 2021-07-27 2021-07-27 Telephone Jarrett 1.2.840.1 [id number] Univers 00:00:00 00:00:00 Génesis Ann 11597.1.1 ity of 3.412.2.7 [place] .3.681043 MD Haines8 [facility] 2021-07-27 2021-07-27 Angel Clark, 1.2.840.1 [id number] Univers 00:00:00 00:00:00 Stella 88469.1.1 it y of 3.412.2.7 [place] .3.713856 MD Haines8 [facility] 2021-07-27 2021-07-27 Telephone Jarrett 1.2.840.1 [id number] [facility] 00:00:00 00:00:00 Génesis L 94567.1.1 ity of 3.412.2.7 [place] .[id number] MD Haines8 [facility] 2021-07-27 2021-07-27 Angel Clark, 1.2.840.1 [id number] [facility] 00:00:00 00:00:00 Stella 37533.1.1 it y of 3.412.2.7 [place] .3.596056 MD Haines8 [facility] 2021-07-26 2021-07-26 Telephone Seaderrick, 1.2.840.1 [id number] [facility] 00:00:00 00:00:00 Génesis C 40886.1.1 ity of 3.412.2.7 [place] .3.513609 MD Haines8 [facility] 2021-07-26 2021-07-26 Raul Mendez, 1.2.840.1 [id number] [facility] 00:00:00 00:00:00 Only Jackie 11719.1.1 ity of 3.412.2.7 [place] .3.815591 MD Haines8 [facility] 2021-07-26 2021-07-26 Angel Clark, 1.2.840.1 [id number] [facility] 00:00:00 00:00:00 Stella 74552.1.1 it y of 3.412.2.7 [place] .3.593575 MD Haines8 [facility] 2021-07-26 2021-07-26 Telephone Anais, 1.2.840.1 [id number] 1 [id number] [facility] 00:00:00 00:00:00 Génesis Trevino 56049.1.1 ity of 3.412.2.7 [place] .3.083174 MD Haines8 [facility] 2021-07-26 2021-07-26 Raul Mendez, 1.2.840.1 [id number] [facility] 00:00:00 00:00:00 Only Jackie 85352.1.1 ity of 3.412.2.7 [place] .3.321806 MD Haines8 [facility] 2021-07-26 2021-07-26 Angel Clark, 1.2.840.1 [id number] [facility] 00:00:00 00:00:00 Stella 42626.1.1 it y of 3.412.2.7 [place] .3.853558 MD Beasley [facility] 2021-07-19 2021-07-19 Telephone Edmund, 1.2.840.1 [id number] [facility] 00:00:00 00:00:00 Daisy Zimmerman 24405.1.1 it y of 3.412.2.7 [place] .3.332416 MD Haines8 [facility] 2021-07-19 2021-07-19 Telephone Edmund, 1.2.840.1 [id number] [facility] 00:00:00 00:00:00 Daisy Zimmerman 41054.1.1 it y of 3.412.2.7 [place] .3.722976 MD Haines8 [facility] 2021-07-12 2021-07-12 Telephone Amber, 1.2.840.1 [id number] [facility] 00:00:00 00:00:00 Stella 24595.1.1 it y of 3.412.2.7 [place] .3.109989 MD Haines8 [facility] 2021-07-12 2021-07-12 Telephone Amber, 1.2.840.1 [id number] [facility] 00:00:00 00:00:00 Stella 13220.1.1 it y of 3.412.2.7 [place] .3.253144 MD Haines8 [facility] 2021-07-11 2021-07-11 Raul Clark 1.2.840.1 [id number] Univers 00:00:00 00:00:00 Only Stella 22034.1.1 it y of 3.412.2.7 [place] .3.103955 MD Haines8 [facility] 2021-07-11 2021-07-11 Telephone Price, 1.2.840.1 [id number] Univers 00:00:00 00:00:00 Ileana Ann 03782.1.1 i ty of 3.412.2.7 [place] .3.169423 MD Haines8 [facility] 2021-07-11 2021-07-11 Raul Clark, 1.2.840.1 [id number] 7505 Univers 00:00:00 00:00:00 Only Stella 80196.1.1 it y of 3.412.2.7 [place] .3.466187 MD Beasley [facility] 2021-07-11 2021-07-11 Uzma Thrasher, 1.2.840.1 [id number] [id number] Univers 00:00:00 00:00:00 Ileana Seth 05263.1.1 i ty of 3.412.2.7 [place] .3.856748 MD Haines8 [facility] 2021-07-02 2021-07-02 Raul Clark 1.2.840.1 [id number] Univers 00:00:00 00:00:00 Only Stella 50891.1.1 it y of 3.412.2.7 [place] .3.829508 MD Beasley [facility] 2021-07-02 2021-07-02 Raul Clark 1.2.840.1 [id number] 7060 Univers 00:00:00 00:00:00 Only Stella 04787.1.1 it y of 3.412.2.7 [place] .3.353586 MD Beasley [facility] 2021-06-27 2021-06-27 Raul Clark 1.2.840.1 [id number] 6008 Univers 00:00:00 00:00:00 Only Stella 24756.1.1 it y of 3.412.2.7 [place] .3.595287 MD Beasley [facility] 2021-06-27 2021-06-27 Raul Clark 1.2.840.1 [id number] 3143 Univers 00:00:00 00:00:00 Only Stella 74477.1.1 it y of 3.412.2.7 [place] .3.904730 MD Beasley [facility] 2021-06-25 2021-06-25 Raul Clark 1.2.840.1 [id number] Univers 00:00:00 00:00:00 Only Stella 59361.1.1 it y of 3.412.2.7 [place] .3.786181 MD Haines8 [facility] 2021-06-25 2021-06-25 Raul Clark, 1.2.840.1 [id number] Univers 00:00:00 00:00:00 Only Stella 30553.1.1 it y of 3.412.2.7 [place] .3.473160 MD Haines8 [facility] 2021-06-14 2021-06-14 Telephone Ger, 1.2.840.1 [id number] Univers 00:00:00 00:00:00 Lolita 22574.1.1 ity of [place] 3.412.2.7 [place] .3.285070 MD Haines8 [facility] 2021-06-14 2021-06-14 Telephone Ger, 1.2.840.1 [id number] Univers 00:00:00 00:00:00 Lolita 02980.1.1 ity of [place] 3.412.2.7 [place] .3.750354 MD Haines8 [facility] 2021-06-11 2021-06-11 Raul Clark, 1.2.840.1 [id number] 5100 Univers 00:00:00 00:00:00 Only Stella 89704.1.1 it y of 3.412.2.7 [place] .3.003068 MD Haines8 [facility] 2021-06-11 2021-06-11 Raul Clark, 1.2.840.1 [id number] 7385 Univers 00:00:00 00:00:00 Only Stella 97971.1.1 it y of 3.412.2.7 [place] .3.197268 MD Haines8 [facility] 2021-06-09 2021-06-09 Angel Rivas, 1.2.840.1 [id number] Univers 00:00:00 00:00:00 Yudith Lehman 24756.1.1 ity of 3.412.2.7 [place] .3.753173 MD Haines8 [facility] 2021-06-09 2021-06-09 Angel Rivas, 1.2.840.1 [id number] Univers 00:00:00 00:00:00 Yudith Lehman 85146.1.1 ity of 3.412.2.7 [place] .3.982953 MD Haines8 [facility] 2021-06-06 2021-06-06 Telephone Seagroves, 1.2.840.1 [id number] Univers 00:00:00 00:00:00 Génesis Trevino 22608.1.1 ity of 3.412.2.7 [place] .3.080155 MD Haines8 [facility] 2021-06-06 2021-06-06 Telephone Seagroves, 1.2.840.1 [id number] 1 [id number] Univers 00:00:00 00:00:00 Génesis Trevino 92040.1.1 ity of 3.412.2.7 [place] .3.707591 MD Haines8 [facility] 2021-05-21 2021-05-21 Surgery [facility], 1.2.840.1 [id number] Univers 14:50:00 15:20:00 Claude 31738.1.1 ity of 3.412.2.7 [place] .3.170019 MD Haines8 [facility] 2021-05-21 2021-05-21 Surgery [facility], 1.2.840.1 [id number] 0794 Univers 14:50:00 15:20:00 Claude 49581.1.1 ity of 3.412.2.7 [place] .3.084988 MD Haines8 [facility] 2021-05-21 2021-05-21 [facility], 1.2.840.1 [id number] [id number] Univers 12:54:00 13:30:00 Encounter Claude 31331.1.1 it y of 3.412.2.7 [place] .3.577074 MD Beasley [facility] 2021-05-21 2021-05-21 Hospital NICHOLE Tobin, 1.2.840.1 [id number] Univers 12:54:00 13:30:00 Encounter Claude 32555.1.1 it y of 3.412.2.7 [place] .3.400230 MD Beasley [facility] 2021-05-21 2021-05-21 Travel 1.2.840.1 1.2.167.984 0183 [id number] Univers 00:00:00 00:00:00 58516.1.1 350.1.13.41 ity of 3.412.2.7 2.[place]7.3.698 [place] .3.0719[place] 084.8 MD Beasley [facility] 2021-05-21 2021-05-21 Travel 1.2.840.1 1.2.119.294 0164 [id number] Univers 00:00:00 00:00:00 48679.1.1 350.1.13.41 ity of 3.412.2.7 2.2.7.3.698 [place] .3.153008 084.Shaun Beasley [facility] 2021-05-17 2021-05-17 Prep for Novembergraciela, 1.2.840.1 [id number] Univers 00:00:00 00:00:00 Surgery Elmira Zimmerman 35840.1.1 it y of 3.412.2.7 [place] .3.904518 MD Beasley [facility] 2021-05-17 2021-05-17 Orders Amber, 1.2.840.1 [id number] Univers 00:00:00 00:00:00 Only Stella 59307.1.1 it y of 3.412.2.7 [place] .3.132064 MD Beasley [facility] 2021-05-17 2021-05-17 Prep for Novemberk, 1.2.840.1 [id number] Univers 00:00:00 00:00:00 Surgery Elmira Zimmerman 18158.1.1 it y of 3.412.2.7 [place] .3.068645 MD Haines8 [facility] 2021-05-17 2021-05-17 Raul Clark, 1.2.840.1 [id number] 6639 Univers 00:00:00 00:00:00 Only Stella 29219.1.1 it y of 3.412.2.7 [place] .3.555670 MD Haines8 [facility] 2021-05-16 2021-05-16 Raul Clark, 1.2.840.1 [id number] 3013 Univers 00:00:00 00:00:00 Only Stella 99186.1.1 it y of 3.412.2.7 [place] .3.263954 MD Haines8 [facility] 2021-05-16 2021-05-16 Telephone Ger, 1.2.840.1 [id number] 1 [id number] Univers 00:00:00 00:00:00 Lolita 51992.1.1 ity of [place] 3.412.2.7 [place] .3.631326 MD Haines8 [facility] 2021-05-16 2021-05-16 Telephone Ger, 1.2.840.1 [id number] 1 [id number] Univers 00:00:00 00:00:00 Lolita 68788.1.1 ity of [place] 3.412.2.7 [place] .3.600946 MD Haines8 [facility] 2021-05-16 2021-05-16 Raul Clark, 1.2.840.1 [id number] Univers 00:00:00 00:00:00 Only Stella 14994.1.1 it y of 3.412.2.7 [place] .3.746223 MD Haines8 [facility] 2021-05-16 2021-05-16 Telephone Ger, 1.2.840.1 [id number] 1 [id number] Univers 00:00:00 00:00:00 Lolita 72432.1.1 ity of [place] 3.412.2.7 [place] .3.841570 MD Haines8 [facility] 2021-05-16 2021-05-16 Telephone Ger 1.2.840.1 [id number] Univers 00:00:00 00:00:00 Lolita 34911.1.1 ity of [place] 3.412.2.7 [place] .3.770427 MD Haines8 [facility] 2021-05-14 2021-05-14 Orders Tegan 1.2.840.1 [id number] Univers 00:00:00 00:00:00 Only Giovanna Flores 18482.1.1 i ty of 3.412.2.7 [place] .3.022483 MD Haines8 [facility] 2021-05-14 2021-05-14 Orders Tegan 1.2.840.1 [id number] Univers 00:00:00 00:00:00 Only Giovanna Tanner 63826.1.1 i ty of 3.412.2.7 [place] .3.346020 MD Haines8 [facility] 2021-04-27 2021-04-27 Raul Clark 1.2.840.1 [id number] Univers 00:00:00 00:00:00 Only Stella 24819.1.1 it y of 3.412.2.7 [place] .3.106306 MD Haines8 [facility] 2021-04-27 2021-04-27 Raul Clark 1.2.840.1 [id number] 5877 Univers 00:00:00 00:00:00 Only Stella 00237.1.1 it y of 3.412.2.7 [place] .3.918583 MD Haines8 [facility] 2021-04-25 2021-04-25 Raul Clark 1.2.840.1 [id number] Univers 00:00:00 00:00:00 Only Stella 02866.1.1 it y of 3.412.2.7 [place] .3.193906 MD Haines8 [facility] 2021-04-25 2021-04-25 Orders Amber, 1.2.840.1 [id number] Univers 00:00:00 00:00:00 Only Stella 25750.1.1 it y of 3.412.2.7 [place] .3.677547 MD Haines8 [facility] 2021-04-23 2021-04-23 [facility].1 [id number] 10 [id number] Univers 09:38:02 23:59:00 Encounter 88923.1.1 it y of 3.412.2.7 [place] .3.685946 .8 [facility] 2021-04-23 2021-04-23 [facility] 1.2.840.1 [id number] 10 [id number] Univers 09:38:02 23:59:00 Encounter 16734.1.1 it y of 3.412.2.7 [place] .3.713700 MD Haines8 [facility] 2021-04-23 2021-04-23 Raul Del Rsoario 1.2.840.1 [id number] Univers 00:00:00 00:00:00 Only Nicole 14673.1.1 ity of [place] 3.412.2.7 [place] .3.847462 MD Haines8 [facility] 2021-04-23 2021-04-23 Raul Del Rosario 1.2.840.1 [id number] 1649 Univers 00:00:00 00:00:00 Only Nicole 88120.1.1 ity of [place] 3.412.2.7 [place] .3.231356 MD Beasley [facility] 2021-04-23 2021-04-23 Raul Del Rosario 1.2.840.1 [id number] 4465 Univers 00:00:00 00:00:00 Only Nicole 51186.1.1 ity of [place] 3.412.2.7 [place] .3.406771 MD Beasley [facility] 2021-04-23 2021-04-23 Raul Del Rosario, 1.2.840.1 [id number] 3972 Univers 00:00:00 00:00:00 Only Nicole 04010.1.1 ity of [place] 3.412.2.7 [place] .3.575773 MD Haines8 [facility] 2021-04-23 2021-04-23 Travel 1.2.840.1 1.2.053.635 4454 [id number] Univers 00:00:00 00:00:00 85050.1.1 350.1.13.41 ity of 3.412.2.7 2.2.7.3.698 [place] .3.381066 084.8 MD Haines8 [facility] 2021-04-23 2021-04-23 Raul Del Rosario, 1.2.840.1 [id number] 9682 Univers 00:00:00 00:00:00 Only Nicole 30600.1.1 ity of [place] 3.412.2.7 [place] .3.086957 MD Haines8 [facility] 2021-04-23 2021-04-23 Raul Del Rosario, 1.2.840.1 [id number] 3223 Univers 00:00:00 00:00:00 Only Nicole 37323.1.1 ity of [place] 3.412.2.7 [place] .3.387990 MD Haines8 [facility] 2021-04-23 2021-04-23 Raul Del Rosario, 1.2.840.1 [id number] 8993 Univers 00:00:00 00:00:00 Only Nicole 98928.1.1 ity of [place] 3.412.2.7 [place] .3.347399 MD Haines8 [facility] 2021-04-23 2021-04-23 Raul Del Rosario, 1.2.840.1 [id number] 3445 Univers 00:00:00 00:00:00 Only Nicole 18572.1.1 ity of [place] 3.412.2.7 [place] .3.480620 MD Beasley [facility] 2021-04-23 2021-04-23 Travel 1.2.840.1 1.2.516.818 0051 [id number] Univers 00:00:00 00:00:00 59625.1.1 350.1.13.41 ity of 3.412.2.7 2.[place].7.3.698 [place] .3.112709 084.8 .8 [facility] 2021-04-20 2021-04-20 [facility], 1.2.840.1 [id number] Univers 11:46:55 23:59:00 Encounter Maria Fernanda V. 93240.1.1 i ty of 3.412.2.7 [place] .3.251246 MD Haines8 [facility] 2021-04-20 2021-04-20 [facility], 1.2.840.1 [id number] [id number] Univers 11:46:55 23:59:00 Encounter Maria Fernanda V. 25467.1.1 i ty of 3.412.2.7 [place] .3.420497 MD Haines8 [facility] 2021-04-20 2021-04-20 [facility], 1.2.840.1 [id number] 10 [id number] Univers 09:15:00 11:00:00 Procedure Maria Fernanda V. 96278.1.1 i ty of 3.412.2.7 [place] .3.177471 MD Haines8 [facility] 2021-04-20 2021-04-20 [facility], 1.2.840.1 [id number] 10 [id number] Univers 09:15:00 11:00:00 Procedure Maria Fernanda V. 27411.1.1 i ty of 3.412.2.7 [place] .3.683372 MD Haines8 [facility] 2021-04-20 2021-04-20 Travel 1.2.840.1 1.2.444.650 3264 [id number] Univers 00:00:00 00:00:00 65920.1.1 350.1.13.41 ity of 3.412.2.7 2.2.7.3.698 [place] .3.135409 084.8 .8 [facility] 2021-04-20 2021-04-20 Travel 1.2.840.1 1.2.987.380 8921 [id number] Univers 00:00:00 00:00:00 62935.1.1 350.1.13.41 ity of 3.412.2.7 2.2.7.3.698 [place] .3.559229 084.8 .Shaun [facility] 2021-04-16 2021-04-16 [facility], 1.2.840.1 [id number] 1 [id number] Univers 09:30:00 23:59:00 Encounter Mary Beth Seth 05046.1.1 i ty of 3.412.2.7 [place] .3.635865 MD Haines8 [facility] 2021-04-16 2021-04-16 [facility], 1.2.840.1 [id number] 1 [id number] Univers 09:30:00 23:59:00 Encounter Mary Beth Ann 36290.1.1 i ty of 3.412.2.7 [place] .3.564016 MD Beasley [facility] 2021-04-16 2021-04-16 Office Rah, 1.2.840.1 [id number] Univers 09:00:00 10:36:47 Visit Herrera 95356.1.1 ity of 3.412.2.7 [place] .3.460556 MD Beasley [facility] 2021-04-16 2021-04-16 Office NICHOLE Monreal, 1.2.840.1 [id number] 0477 Univers 09:00:00 10:36:47 Visit Herrera 24910.1.1 ity of 3.412.2.7 [place] .3.143589 MD Beasley [facility] 2021-04-16 2021-04-16 Travel 1.2.840.1 1.2.437.427 6149 [id number] Univers 00:00:00 00:00:00 49717.1.1 350.1.13.41 ity of 3.412.2.7 2.2.7.3.698 [place] .3.170615 084.8 MD Haines8 [facility] 2021-04-16 2021-04-16 Travel 1.2.840.1 1.2.557.994 2113 [id number] Univers 00:00:00 00:00:00 75554.1.1 350.1.13.41 ity of 3.412.2.7 2.2.7.3.698 [place] .3.625351 084.8 MD Beasley [facility] 2021-04-13 2021-04-13 Raul Giraldo 1.2.840.1 [id number] 0143 Univers 00:00:00 00:00:00 Only Wayne 18483.1.1 ity of 3.412.2.7 [place] .3.883198 MD Beasley [facility] 2021-04-13 2021-04-13 Raul Giraldo 1.2.840.1 [id number] 4551 Univers 00:00:00 00:00:00 Only Wayne 30841.1.1 ity of 3.412.2.7 [place] .3.275568 MD Beasley [facility] 2021-04-07 2021-04-07 Orders Shantal 1.2.840.1 [id number] Univers 00:00:00 00:00:00 Only Kaylyn, 64225.1.1 ity of [place]ha[place] 3.412.2.7 [place] .3.506499 MD Beasley [facility] 2021-04-07 2021-04-07 Nurse Brandon 1.2.840.1 [id number] Univers 00:00:00 00:00:00 Triage Juan Lehman 31698.1.1 it y of 3.412.2.7 [place] .3.893395 MD Beasley [facility] 2021-04-07 2021-04-07 Orders Shantal 1.2.840.1 [id number] Univers 00:00:00 00:00:00 Only Monicaluis, 89012.1.1 ity of [place]ha[place] 3.412.2.7 [place] .3.180592 MD Haines8 [facility] 2021-04-07 2021-04-07 Nurse Taylor, 1.2.840.1 [id number] Univers 00:00:00 00:00:00 Triage Juan Lehman 96647.1.1 it y of 3.412.2.7 [place] .3.047827 MD Haines8 [facility] 2021-04-05 2021-04-05 Raul Clark, 1.2.840.1 [id number] Univers 00:00:00 00:00:00 Only Stella 39427.1.1 it y of 3.412.2.7 [place] .3.048067 MD Haines8 [facility] 2021-04-05 2021-04-05 Raul Clark, 1.2.840.1 [id number] 5121 Univers 00:00:00 00:00:00 Only Stella 91325.1.1 it y of 3.412.2.7 [place] .3.241409 MD Haines8 [facility] 2021-04-04 2021-04-04 Angel Gonzalez 1.2.840.1 [id number] 7527 Univers 00:00:00 00:00:00 Gurpreet Ramírez 15746.1.1 it y of 3.412.2.7 [place] .3.754138 MD Haines8 [facility] 2021-04-04 2021-04-04 Gabrielle Osborne 1.2.840.1 [id number] Univers 00:00:00 00:00:00 Graciela 77477.1.1 ity of 3.412.2.7 [place] .3.733798 MD Haines8 [facility] 2021-04-04 2021-04-04 Angel Gonzalez, 1.2.840.1 [id number] 0823 Univers 00:00:00 00:00:00 Gurpreet Ramírez 95563.1.1 it y of 3.412.2.7 [place] .3.499919 MD Haines8 [facility] 2021-04-04 2021-04-04 Gabrielle Osborne 1.2.840.1 [id number] Univers 00:00:00 00:00:00 Graciela 00239.1.1 ity of 3.412.2.7 [place] .3.815111 MD Haines8 [facility] 2021-04-03 2021-04-03 Gillian Marr, 1.2.840.1 [id number] [id number] Univers 14:00:00 14:00:00 Alina 09167.1.1 ity of 3.412.2.7 [place] .3.396203 MD Haines8 [facility] 2021-04-03 2021-04-03 Nutrition NICHOLE Marr, 1.2.840.1 [id number] [id number] Univers 14:00:00 14:00:00 Alina 43133.1.1 ity of 3.412.2.7 [place] .3.748271 MD Beasley [facility] 2021-03-30 2021-03-30 Raul Clark, 1.2.840.1 [id number] Univers 00:00:00 00:00:00 Only Stella 66137.1.1 it y of 3.412.2.7 [place] .3.018337 MD Beasley [facility] 2021-03-30 2021-03-30 Raul Clark 1.2.840.1 [id number] 7125 Univers 00:00:00 00:00:00 Only Stella 85389.1.1 it y of 3.412.2.7 [place] .3.248011 MD Beasley [facility] 2021-03-29 2021-03-29 Raul Clark 1.2.840.1 [id number] 4367 Univers 00:00:00 00:00:00 Only Stella 36069.1.1 it y of 3.412.2.7 [place] .3.599683 MD Beasley [facility] 2021-03-29 2021-03-29 Raul Clark, 1.2.840.1 [id number] 8951 Univers 00:00:00 00:00:00 Only Stella 18060.1.1 it y of 3.412.2.7 [place] .3.384947 MD Haines8 [facility] 2021-03-27 2021-03-27 Raul Clark 1.2.840.1 [id number] 3290 Univers 00:00:00 00:00:00 Only Stella 06179.1.1 it y of 3.412.2.7 [place] .3.694678 MD Haines8 [facility] 2021-03-27 2021-03-27 Angel Santillan 1.2.840.1 [id number] [id number] Univers 00:00:00 00:00:00 Wilfredo Stewart 06762.1.1 ity of 3.412.2.7 [place] .3.473320 MD Haines8 [facility] 2021-03-27 2021-03-27 Raul Clark 1.2.840.1 [id number] 5712 Univers 00:00:00 00:00:00 Only Stella 78856.1.1 it y of 3.412.2.7 [place] .3.956197 MD Haines8 [facility] 2021-03-27 2021-03-27 Angel Santillan 1.2.840.1 [id number] [id number] Univers 00:00:00 00:00:00 Wilfredo F 35833.1.1 ity of 3.412.2.7 [place] .3.897377 MD Haines8 [facility] 2021-03-09 2021-03-09 Raul Perez 1.2.840.1 [id number] Univers 00:00:00 00:00:00 Only Tanja Mora 34180.1.1 ity of 3.412.2.7 [place] .3.487455 MD Beasley [facility] 2021-03-08 2021-03-08 Raul Clark, 1.2.840.1 [id number] 3548 Univers 00:00:00 00:00:00 Only Stella 93186.1.1 it y of 3.412.2.7 [place] .3.531541 .8 [facility] 2021-03-07 2021-03-07 Orders Chris, 1.2.840.1 [id number] Univers 00:00:00 00:00:00 Only Tanja Mora 86679.1.1 ity of 3.412.2.7 [place] .3.462153 .8 [facility] 2021-03-07 2021-03-07 Documentat Precious, 1.2.840.1 [id number] Univers 00:00:00 00:00:00 ion Benedicto 10923.1.1 ity of 3.412.2.7 [place] .3.127502 .8 [facility] 2021-03-07 2021-03-07 Angel Rivas, 1.2.840.1 [id number] Univers 00:00:00 00:00:00 Yudith Lehman 38464.1.1 ity of 3.412.2.7 [place] .3.610197 .8 [facility] 2021-03-07 2021-03-07 Documentat Shivam, 1.2.840.1 [id number] Univers 00:00:00 00:00:00 ion Sahara 35492.1.1 ity of Sofi 3.412.2.7 [place] .3.371395 MD Haines8 [facility] 2021-02-16 2021-03-02 Inpatient [facility]AV [facility] [id number] 13:50:00 18:30:00 IRINA zimmerman 2021-03-02 2021-03-02 Inpatient NICHOLE SMITH [facility] [id number] 10:28:13 10:52:29 IRINA zimmerman 2021-03-01 2021-03-01 Inpatient GABRIELLE SQUIRES MDA, MDA [id number] 13:48:32 14:24:14 Bakari o erasmo 2021-02-28 2021-02-28 Inpatient EL GABRIELLE GONZALEZ MDA MDA [id number] 15:34:04 16:08:02 Bakari o erasmo 2021-02-27 2021-02-27 Inpatient EL FOSSELLA, MDA MDA [id number] 11:31:18 11:31:23 MARIA FERNANDA Villegas o erasmo 2021-02-23 2021-02-23 Inpatient EL LORRAINEDODARIELA, MDA MDA [id number] 08:50:18 09:09:38 MARCIN Villegas o erasmo 2021-02-20 2021-02-20 Inpatient EL HALM, MDA MDA [id number] 21:52:07 22:45:31 MAYANK Villegas o erasmo 2021-02-19 2021-02-19 Inpatient EL HALM, MDA MDA [id number] 16:34:08 16:35:56 MAYANK Villegas o erasmo 2021-02-19 2021-02-19 Inpatient EL HALM, MDA MDA [id number] 14:32:55 14:50:27 MAYANK Villegas o erasmo 2021-02-19 2021-02-19 Inpatient EL FOSSELLA, MDA MDA [id number] 11:06:11 11:06:14 MARIA FERNANDA zimmerman 2021-02-18 2021-02-18 Inpatient EL HALM, MDA MDA [id number] 15:44:22 16:22:28 MAYANK Villegas o erasmo 2021-02-17 2021-02-17 Inpatient EL TOD GLASS MDA MDA [id number] 03:53:53 04:06:50 Bakari o erasmo 2021-01-21 2021-01-30 Inpatient ER ODARO, [facility] [id number] 21:38:00 18:36:00 BENEDICTO Villegas o erasmo 2021-01-30 2021-01-30 Inpatient EL FOSSELLA, MDA MDA [id number] 15:18:04 15:18:06 MARIA FERNANDA zimmerman 2021-01-28 2021-01-28 Inpatient EL AL AMERI, MDA MDA [id number] 13:47:27 13:49:05 RASHAAD zimmerman 2021-01-25 2021-01-25 Inpatient EL AL AMERI, MDA MDA [id number] 20:37:26 20:37:30 RASHAAD zimmerman 2021-01-24 2021-01-24 Inpatient EL AL AMERI, MDA MDA [id number] 08:18:01 08:38:37 RASHAAD zimmerman 2021-01-22 2021-01-22 Inpatient EL AL AMERI, MDA MDA [id number] 19:02:05 19:25:15 RASHAAD zimmerman 2021-01-04 2021-01-19 Inpatient ER [facility] [id number] 11:01:00 16:25:00 Levi RAJPUT 2021-01-18 2021-01-18 Inpatient EL FOSSELLA, MDA MDA [id number] 11:15:46 11:15:49 MARIA FERNANDA zimmerman 2021-01-15 2021-01-15 Inpatient EL FOSSELLA, MDA MDA [id number] 10:54:17 10:54:19 MARIA FERNANDA zimmerman 2021-01-14 2021-01-14 Inpatient EL RAMSEY, MDA MDA [id number] 12:12:50 13:22:39 JUAREZ zimmerman 2021-01-12 2021-01-12 Inpatient EL FOSSELLA, MDA MDA [id number] 11:16:26 11:16:28 MARIA FERNANDA zimmerman 2021-01-10 2021-01-10 Inpatient EL FOSSELLA, MDA MDA [id number] 12:34:26 12:34:30 MARIA FERNANDA zimmerman 2021-01-09 2021-01-09 Inpatient EL ESTES, MDA MDA [id number] 21:30:37 21:42:18 GURPREET zimmerman 2021-01-08 2021-01-08 Inpatient EL ESTES, MDA MDA [id number] 11:15:00 12:40:27 GURPREET zimmerman 2021-01-07 2021-01-07 [facility] MDA [id number] 09:48:34 10:43:19 BONI zimmerman 2021-01-05 2021-01-05 Inpatient EL FOSSELLA, MDA MDA [id number] 10:28:44 10:28:46 MARIA FERNANDA zimmerman 2020-12-26 2020-12-26 Outpatient EL FOSSELLA, MDA MDA [id number] 13:17:22 13:49:03 MARIA FERNANDA zimmerman 2020-12-22 2020-12-22 Outpatient EL FOSSELLA, MDA MDA [id number] 15:44:28 15:44:28 MARIA FERNANDA zimmerman 2020-12-20 2020-12-20 Outpatient EL FOSSELLA, MDA MDA [id number] 14:45:38 15:10:28 MARIA FERNANDA zimmerman 2020-12-19 2020-12-19 Outpatient EL FOSSELLA, MDA MDA [id number] 15:02:13 15:33:05 MARIA FERNANDA zimmerman 2020-12-18 2020-12-18 Outpatient EL FOSSELLA, MDA MDA [id number] 14:30:00 23:59:00 MARIA FERNANDA zimmerman 2020-12-18 2020-12-18 Outpatient EL TEJINDER, RAYMUNDO MDA MDA [id number] 15:34:19 15:34:19 Bakari zimmerman 2020-12-18 2020-12-18 Outpatient EL FOSSELLA, MDA MDA [id number] 14:39:45 15:30:31 MARIA FERNANDA zimmerman 2020-12-15 2020-12-15 Outpatient EL FOSSELLA, MDA MDA [id number] 14:01:01 14:06:41 MARIA FERNANDA zimmerman 2020-10-26 2020-10-26 Outpatient R [facility] [id number] [facility] 09:00:00 09:00:00 [id number] [facility] 2020-10-26 2020-10-26 Outpatient R [facility] [id number] Univers 09:00:00 09:00:00 [facility] 2020-10-19 2020-10-19 Outpatient R [facility] [id number] [facility] 09:00:00 09:00:00 [id number] [facility] 2020-10-17 2020-10-17 Outpatient R [facility] [id number] Univers 09:30:00 09:30:00 [id number] [facility] 2020-10-17 2020-10-17 Outpatient R DIOGO, [facility] [id number] Univers 09:30:00 09:30:00 [facility] 2020-07-27 2020-07-27 Outpatient R BRANDY, [facility] [id number] Univers 14:30:00 14:30:00 ATTENDING [facility] 2020-07-05 2020-07-05 Outpatient EL MIGDEN, MDA MDA [id number] 10:29:44 10:55:21 HERRERA zimmerman 2020-04-28 2020-04-29 Inpatient [facility] DANDRE [id number] 02:28:00 09:27:09 18 [facility] 2020-04-27 2020-04-27 Outpatient EL FOSSELLA, MDA MDA [id number] 06:26:24 06:26:24 MARIA FERNANDA zimmerman 2020-04-25 2020-04-25 Outpatient EL FOSSELLA, MDA MDA [id number] 15:16:25 23:59:00 MARIA FERNANDA zimmerman 2020-04-25 2020-04-25 Outpatient EL FOSSELLA, MDA MDA [id number] 16:52:13 16:52:13 MARIA FERNANDA zimmerman 2020-04-21 2020-04-21 Outpatient EL FOSSELLA, MDA MDA [id number] 12:34:59 15:51:01 MARIA FERNANDA zimmerman 2020-04-17 2020-04-17 Outpatient EL ROCKY RODRIGUEZ MDA MDA [id number] 11:29:21 23:59:00 Bakari zimmerman 2020-04-17 2020-04-17 Outpatient EL MDA MDA [id number] 09:00:09 11:28:00 Bakari zimmerman 2020-04-17 2020-04-17 Outpatient EL CRANE, MDA MDA [id number] 09:38:52 11:12:52 CODY zimmerman 2020-04-14 2020-04-14 Outpatient EL MDA MDA [id number] 11:14:57 23:59:00 Bakari zimmerman 2020-04-14 2020-04-14 Outpatient EL CHEYANNE, AURELIANO MDA MDA [id number] MD 12:35:21 13:51:10 Bakari o erasmo 2020-04-14 2020-04-14 Outpatient EL MDA MDA [id number] MD 08:26:38 11:13:00 Bakari o erasmo 2020-04-13 2020-04-13 Outpatient EL MDA MDA [id number] MD 15:45:00 23:59:00 Bakari o erasmo 2020-04-13 2020-04-13 Outpatient EL MDA MDA [id number] MD 13:53:11 15:44:00 Bakari o erasmo 2020-04-13 2020-04-13 Outpatient EL MDA MDA [id number] MD 13:27:19 13:52:00 Bakari o erasmo 2020-04-13 2020-04-13 Outpatient EL MDA MDA [id number] MD 10:45:00 13:26:00 Bakrai o erasmo 2020-04-13 2020-04-13 Outpatient EL ROSA MARIA, MDA MDA [id number] MD 07:39:14 10:44:00 CODY zimmerman 2020-04-12 2020-04-12 Outpatient EL ILIESCU, MDA MDA [id number] MD 12:45:00 23:59:00 ORACIO Villegas o erasmo 2020-04-11 2020-04-11 Outpatient EL BRENDON, MDA MDA [id number] MD 11:45:00 23:59:00 WILFREDO zimmerman 2020-04-11 2020-04-11 Outpatient EL BRENDON, MDA MDA [id number] MD 11:23:21 11:23:21 WILFREDO Villegas o erasmo 2020-03-31 2020-03-31 Outpatient EL CONATY, MDA MDA [id number] 08:00:00 23:59:00 MAURICIO Villegas o erasmo 2020-03-31 2020-03-31 Outpatient EL ROSA MARIA, MDA MDA [id number] 08:51:09 09:59:36 CODY zimmerman 2020-03-20 2020-03-20 Outpatient EL ILIESCU, MDA MDA [id number] MD 10:02:47 10:02:47 ORACIO Leesers o erasmo 2020-03-20 2020-03-20 Outpatient EL REGINA, MDA MDA [id number] 09:57:25 09:57:25 HAYLEY Villegas o erasmo 2020-03-10 2020-03-10 Outpatient EL REGINA, MDA MDA [id number] 08:10:34 08:10:34 LATDANA Bakari o n 2020-03-02 2020-03-02 Outpatient EL REGINA, MDA MDA [id number] 12:40:44 23:59:00 LATIRA Bakari o n 2020-03-02 2020-03-02 Outpatient EL ILILAWANDA, MDA MDA [id number] 10:20:00 14:05:06 ORACIO Bakari o n 2020-03-02 2020-03-02 Outpatient EL REGINA, MDA MDA [id number] 12:15:00 12:39:00 HAYLEY Bakari o n 2020-03-02 2020-03-02 Outpatient EL SHANELL, MDA MDA [id number] 10:29:25 10:29:25 ORACIO Bakari o n 2020-03-02 2020-03-02 Outpatient EL MDA MDA [id number] MD 10:00:01 10:00:10 Bakari o n 2020-02-29 2020-02-29 Outpatient EL MDA MDA [id number] MD 13:58:52 14:24:33 Bakari o n 2019-08-12 2019-08-15 Inpatient [facility] DANDRE [id number] 20:09:00 22:33:31 [address] [facility] [place] [...] and electronically signed by Pathologist:SRUTHI ZABALA MD #[id number] [facility] [id number] 23:29:29 Test Item Value Reference Range Interpretation Comments Final Report (test No Fungi isolated. code = 8488) Path Review - Culture yield may be Fungus (test code = affected by sample 8479) quality, prior treatment, and transportation conditions.The results have been reviewed and electronically signed by Pathologist:SRUTHI ZABALA MD #[id number] [facility]ville[facility] Hwktlek0799-67-41 01:20:36 Test Item Value Reference Range Interpretation Comments Final Report (test No growth code = 8488) Path Review - Culture yield may be Bottle/Isolator affected by sample (test code = 8499) quality, prior treatment, and transportation conditions....The results have been reviewed and electronically signed by Pathologist:Fredy Mercado MD, PhD #[id number] [facility] Oltsbsj8309-07-90 01:20:36 Test Item Value Reference Range Interpretation Comments Final Report (test No growth code = 8488) Path Review - Culture yield may be Bottle/Isolator affected by sample (test code = 8499) quality, prior treatment, and transportation conditions....The results have been reviewed and electronically signed by Pathologist:Fredy Mercado MD, PhD #[id number] [facility]villeDifferential2022-04-27 17:07:36 Test Item Value Reference Range Interpretation Comments Total Cells (test code 100 = 34446-7) Neutrophil % (test code 63.0 % 42.0-66.0 The Neutrophil count = 73782-8) includes Bands. Lymphocyte % (test code 20.0 % 24.0-44.0 L = 737-7) Monocyte % (test code = 9.0 % 2.0-7.0 H 744-3) Eosinophil % (test code 2.0 % 1.0-4.0 = 714-6) Metamyelocyte % (test 6.0 % See_Comment H The Me tamyelocyte code = 740-1) count includes Myelocytes. [Automated mess age] The system [employer] generated this result transmitted ref erence range: <=0.0. T he reference range was not used to int erpret this result as normal/abnormal . NRBC (test code = 1.0 See_Comment H [Automate d message] 55572-0) The system [employer] generated this result transmitted ref erence range: [...] PLT Morph (test code = Normal Normal 11654-2) Anisocytosis (test code Present Not Present A = 702-1) Poik (test code = Present Not Present A 779-9) Polychromasia (test Present Not Present A code = 37895-4) Ovalocyte (test code = Present Not Present A 774-0) Tear Drop (test code = Present Not Present A 7791-7) Lab Interpretation Abnormal (test code = 63654-7) [facility] BajqkeMoeyegczbyvn4177-69-76 17:07:36 Test Item Value Reference Range Interpretation Comments Total Cells (test code 100 = 35080-0) Neutrophil % (test code 63.0 % 42.0-66.0 The Neutrophil count = 40610-4) includes Bands. Lymphocyte % (test code 20.0 % 24.0-44.0 L = 737-7) Monocyte % (test code = 9.0 % 2.0-7.0 H 744-3) Eosinophil % (test code 2.0 % 1.0-4.0 = 714-6) Metamyelocyte % (test 6.0 % See_Comment H The Me tamyelocyte code = 740-1) count includes Myelocytes. [Automated mess age] The system [employer] generated this result transmitted ref erence range: <=0.0. T he reference range was not used to int erpret this result as normal/abnormal . NRBC (test code = 1.0 See_Comment H [Automate d message] 89932-5) The system [employer] generated this result transmitted ref erence range: [...] PLT Morph (test code = Normal Normal 92906-5) Anisocytosis (test code Present Not Present A = 702-1) Poik (test code = Present Not Present A 779-9) Polychromasia (test Present Not Present A code = 56391-8) Ovalocyte (test code = Present Not Present A 774-0) Tear Drop (test code = Present Not Present A 7791-7) Lab Interpretation Abnormal (test code = 89392-2) [facility] [place].[id number] 17:07:32 Test Item Value Reference Range Interpretation Comments WBC (test code = 11.5 K/uL 4.0-11.0 H 6690-2) RBC (test code = 789-8) 4.25 See_Comment L [Au tomated message] The system [employer] generated this result transmitted ref erence range: 4.50 - 6 .00 M/uL. The refer ence range was not u sed to interpret this result as normal/abnor mal. Hgb (test code = 718-7) 12.1 See_Comment L [Au tomated message] The system [employer] generated this result transmitted ref erence range: [...] See_Comment [Automate d message] 786-4) The system [employer] generated this result transmitted ref erence range: 31.0 - 3 6.0 gm/dL. The refe rence range was not u sed to interpret this result as normal/abnor mal. RDW-SD (test code = 57.5 fL 35.1-46.3 H 84737-2) RDW-CV (test code = 17.4 % 12.0-15.5 H 788-0) Platelet count (test 313 K/uL 140-440 code = 777-3) MPV (test code = 8.8 fL 4.0-10.4 37380-8) INRBC (test code = 0.2 % See_Comment H The INRBC (instrument 86090-1) NRBC) value ref lects the enumeration of nucleated red b lood cells contained in a 200uL sampleof whole blood analyzed by the instrument. Thi s value maydiffer from the NRBC value reported in a m anual differential,wh ich is based on a 100 cell differential. [Automated mess age] The system [employer] generated this result transmitted ref erence range: <=0.0. T he reference range was not used to int erpret this result as normal/abnormal . Lab Interpretation Abnormal (test code = 50599-8) [facility] [place].[id number] 17:07:32 Test Item Value Reference Range Interpretation Comments WBC (test code = 11.5 K/uL 4.0-11.0 H 6690-2) RBC (test code = 789-8) 4.25 See_Comment L [Au tomated message] The system [employer] generated this result transmitted ref erence range: 4.50 - 6 .00 M/uL. The refer ence range was not u sed to interpret this result as normal/abnor mal. Hgb (test code = 718-7) 12.1 See_Comment L [Au tomated message] The system [employer] generated this result transmitted ref erence range: [...] See_Comment [Automate d message] 786-4) The system [employer] generated this result transmitted ref erence range: 31.0 - 3 6.0 gm/dL. The refe rence range was not u sed to interpret this result as normal/abnor mal. RDW-SD (test code = 57.5 fL 35.1-46.3 H 31833-1) RDW-CV (test code = 17.4 % 12.0-15.5 H 788-0) Platelet count (test 313 K/uL 140-440 code = 777-3) MPV (test code = 8.8 fL 4.0-10.4 94318-1) INRBC (test code = 0.2 % See_Comment H The INRBC (instrument 42753-5) NRBC) value ref lects the enumeration of nucleated red b lood cells contained in a 200uL sampleof whole blood analyzed by the instrument. Thi s value maydiffer from the NRBC value reported in a m anual differential,wh ich is based on a 100 cell differential. [Automated mess age] The system ic h generated this result transmitted ref erence range: <=0.0. T he reference range was not used to int erpret this result as normal/abnormal . Lab Interpretation Abnormal (test code = 12455-6) [facility] [place]orageElectrolyte Irvel4130-10-22 11:49:22 Test Item Value Reference Range Interpretation [...] = 12 See_Comment [Aut omated message] The ) system which ge nerated this result tra nsmitted reference range : 4 - 14 mEq/L. The refe rence range was not u sed to interpret this result as normal/abnormal . [facility]ville[facility]ro[facility] [id number] 11:49:22 Test Item Value Reference Range Interpretation [...] = 12 See_Comment [Aut omated message] The ) system which ge nerated this result tra nsmitted reference range : 4 - 14 mEq/L. The refe rence range was not u sed to interpret this result as normal/abnormal . [facility] BrownsvilleFractionated Skgjljbog2282-40-31 11:49:21 Test Item Value Reference Range Interpretation Comments Bili Total (test <0.3 See_Comment Direct and indirect code = 1974-) bilirubin vibha l not be reported when [...] interpret th is result as normal/abnormal . [facility]villeFractionated Cfqyvslpy8455-78-28 11:49:21 Test Item Value Reference Range Interpretation [...] interpret th is result as normal/abnormal . [facility]villeGlomerular Filtration Rate 2021-10-24 11:49:20 Test Item Value Reference Range Interpretation Comments eGFR-AA (test code 107 See_Comment Normal eG FR: >= 60 = 15648-1) mL/min/1.73 m2N ote: The eGFR is calculated u sing the CKD-EPI equatio n. The eGFR declines with a ge. eGFR <60 mL/min/1.73 m2 is considered as "decreased". This equation should only be used for patients 18 and older. According to e National Kidney Foundati on's Kidney Disease [...] See_Comment Normal e GFR: >= 60 = 17971-7) mL/min/1.73 m2N ote: The eGFR is calculated [...] interpret th is result as normal/abnormal . [facility] [place]Glomerular Filtration Rate 2021-10-24 11:49:20 Test Item Value Reference Range Interpretation Comments eGFR-AA (test code 107 See_Comment Normal eG FR: >= 60 = 62529-9) mL/min/1.73 m2N ote: The eGFR is calculated [...] See_Comment Normal e GFR: >= 60 = 56846-3) mL/min/1.73 m2N ote: The eGFR is calculated [...] interpret th is result as normal/abnormal . [facility]villeTotal Oemxdrv6029-07-96 11:49:19 Test Item Value Reference Range Interpretation Comments Total Protein (test code = 2885-2) 6.3 g/dL 6.4-8.3 L Lab Interpretation (test code = Abnormal 56043-3) [facility]ville[facility] Yzlygle4872-28-60 11:49:19 Test Item Value Reference Range Interpretation Comments Total Protein (test code = 2885-2) 6.3 g/dL 6.4-8.3 L Lab Interpretation (test code = Abnormal 84075-0) [facility]villeMagnesium Rojmq1924-91-89 11:49:18 Test Item Value Reference Range Interpretation Comments Magnesium (test code = 32610-7) 2.1 mg/dL 1.6-2.6 [facility]villeMagnesium Ujjaa5404-02-56 11:49:18 Test Item Value Reference Range Interpretation Comments Magnesium (test code = 29578-4) 2.1 mg/dL 1.6-2.6 [facility]villeAlkaline Jhwuvdkrptz2212-15-53 11:49:17 Test Item Value Reference Range Interpretation Comments Alk Phos (test code = 6768-6) 59 U/L 40-129 [facility]villeAlkaline Zhewhrlvjtr1179-96-29 11:49:17 Test Item Value Reference Range Interpretation Comments Alk Phos (test code = 6768-6) 59 U/L 40-129 [facility]villeALT2022-04-27 11:49:16 Test Item Value Reference Range Interpretation Comments ALT (test code = 14 U/L See_Comment [Automated message] The 1741-11) system which ge nerated this result transmit lakhwinder reference range : <=41. The reference range was not used to interpr et this result as apras l/abnormal. [facility]villeALT2022-04-27 11:49:16 Test Item Value Reference Range Interpretation Comments ALT (test code = 14 U/L See_Comment [Automated message] The 1741-11) system which ge nerated this result transmit lakhwinder reference range : <=41. The reference range was not used to interpr et this result as paras l/abnormal. [facility].Serum Vyssasjcfl2429-37-00 11:49:15 Test Item Value Reference Range Interpretation Comments Creatinine (test code = 2160-0) 0.81 mg/dL 0.67-1.17 [facility] [place].Serum Nllzybkyrd1938-89-41 11:49:15 Test Item Value Reference Range Interpretation Comments Creatinine (test code = 2160-0) 0.81 mg/dL 0.67-1.17 [facility]villeBUN2022-04-27 11:49:14 Test Item Value Reference Range Interpretation Comments BUN (test code = 3094-0) 15 mg/dL 6- [facility]villeBUN2022-04-27 11:49:14 Test Item Value Reference Range Interpretation Comments BUN (test code = 3094-0) 15 mg/dL 6-23 [facility]villePhosphorus [id number] 11:49:13 Test Item Value Reference Range Interpretation Comments Phosphorus (test code = 2777-1) 3.4 mg/dL 2.5-4.5 [facility]villePhosphorus Gnivp6566-22-25 11:49:13 Test Item Value Reference Range Interpretation Comments Phosphorus (test code = 2777-1) 3.4 mg/dL 2.5-4.5 [facility]villeCalcium Pdkcw4169-58-33 11:49:12 Test Item Value Reference Range Interpretation Comments Calcium Lvl (test code = 18916-8) 9.1 mg/dL 8.4-10.2 [facility]villeCalcium Fntle4477-03-95 11:49:12 Test Item Value Reference Range Interpretation Comments Calcium Lvl (test code = 03552-3) 9.1 mg/dL 8.4-10.2 [facility] BrownsvilleAlbumin Dnyla0438-37-20 11:49:11 Test Item Value Reference Range Interpretation Comments Albumin Lvl (test code 3.6 See_Comment [Aut omated message] The = 7318) system which ge nerated this result tra nsmitted reference range : 3.5 - 5.2 gm/dL. The refe rence range was not used to interpret this result as normal/abnormal . [facility] BrownsvilleAlbumin [id number] 11:49:11 Test Item Value Reference Range Interpretation Comments Albumin Lvl (test code 3.6 See_Comment [Aut omated message] The = 3553) system which ge nerated this result tra nsmitted reference range : 3.5 - 5.2 gm/dL. The refe rence range was not used to interpret this result as normal/abnormal . [facility]villeAspartate Aminotransferase 2021-10-24 11:49:10 Test Item Value Reference Range Interpretation Comments AST (test code = 14 U/L See_Comment [Automated message] The 1920-01) system which ge nerated this result transmit lakhwinder reference range : <=40. The reference range was not used to interpr et this result as paras l/abnormal. [facility]villeAspartate Aminotransferase 2021-10-24 11:49:10 Test Item Value Reference Range Interpretation Comments AST (test code = 14 U/L See_Comment [Automated message] The 1920-01) system which ge nerated this result transmit lakhwinder reference range : <=40. The reference range was not used to interpr et this result as paras l/abnormal. [facility]villeGlucose Wjism8358-93-49 11:49:08 Test Item Value Reference Range Interpretation Comments Glucose Level (test code 105 mg/dL 70-99 H Eff ective 01/24/16, = 2345-7) the glucose reference inter vals have been [...] diabetes Lab Interpretation (test Abnormal code = 19836-8) [facility]villeGlucose Sajab6604-75-34 11:49:08 Test Item Value Reference Range Interpretation Comments Glucose Level (test code 105 mg/dL 70-99 H Eff ective 01/24/16, = 2345-7) the glucose reference inter vals have been [...] diabetes Lab Interpretation (test Abnormal code = 93465-2) [facility]villeIgG Byjhfnimqo3848-88-28 06:55:27 Test Item Value Reference Range Interpretation Comments IgG Total-Hart (test 830 mg/dL 767-1590 code = 2465-3) IgG1-Hart (test code = 418 mg/dL 039-534 8089-1) IgG2-Hart (test code = 157 mg/dL 171-632 L 2467-9) IgG3-Hart (test code = 56.8 mg/dL 18.4-106.0 2468-7) IgG4-Hart (test code = 8.8 mg/dL 2.4-121.0 Test Performed 2469-5) by:[facility] [address], [employer] [place], [place] [address]Ohg Director: Petar Johnson M.D. Ph. D.; CLIA# [id number] 2 Lab Interpretation Abnormal (test code = 10678-4) [facility]villeIgG Fwxqbmwsxw0956-73-90 06:55:27 Test Item Value Reference Range Interpretation Comments IgG Total-Hart (test 830 mg/dL 767-1590 code = 2465-3) IgG1-Hart (test code = 418 mg/dL 825-048 1407-1) IgG2-Hart (test code = 157 mg/dL 171-632 L 2467-9) IgG3-Hart (test code = 56.8 mg/dL 18.4-106.0 2468-7) IgG4-Hart (test code = 8.8 mg/dL 2.4-121.0 Test Performed 9-5) by:[facility] [address], [employer] [place], [place] [address]Ugy Director: Petar Johnson M.D. Ph. D.; CLIA# [id number] 2 Lab Interpretation Abnormal (test code = 29446-3) [facility]villeIgG2022-04-25 19:29:59 Test Item Value Reference Range Interpretation Comments IgG (test code = 6001) 751 mg/dL 610-1616 [facility]villeIgG2022-04-25 19:29:59 Test Item Value Reference Range Interpretation Comments IgG (test code = 6001) 751 mg/dL 610-1616 [facility]villeIgA2022-04-25 19:29:58 Test Item Value Reference Range Interpretation Comments IgA (test code = 5992) 191 mg/dL 85-499 [facility]villeIgA2022-04-25 19:29:58 Test Item Value Reference Range Interpretation Comments IgA (test code = 5992) 191 mg/dL 85-499 [facility]villePath[facility] Biopsy Interpretation 2021-10-22 15:30:07 Test Item Value Reference Range Interpretation Comments Submitted Clinical History [id number] (test code = 88956) mbGFuZzEwMzNcZnRuYm pcdWMxIHtccnRmMVxzc 1PpM5SiReQnKSblroGr XGRlZmxhbmcxMDMzXGZ 0bmJqXHVjMVxkZWZmMH azKv8tjRGhcFjhNxNbL TCtt8ddbnBVdkjkuGd7 z4jdFOLhAqT0rFTnRVc tD8lvtpAhxKGmPCMqZH h2eR66RZQiaC5swAVoQ HfjteKaGvN9PBywOAGe OvZ8KPMicKKuBQPhN7p yZWQwXGdyZWVuMFxibH AkLUZ7lJbgp9I3yBEsf GVldHtcZjBcZnMyMiBO g2BsTWq6wMrkS3XhQPJ xStF6bDJdAVLmQBkvHQ IyHNNptrP6uO01MFcpr dY3vPDnx2Qjk96he425 eP7beAXkHJW5FZGrFWQ wyPJyTWMiOIA9EARtgH CuH0rpCPBeJD0pnczxV SddOVhuUCTezIW8HVRf sZOlB8DhJWBjIXcgXCB poas4FxKcTb7dmPIzdX bdQKfsl2yir8obsERxN bg2YXAnSwWuMqipGIai t6Nda9bzMSBvju1aZDP 4aISdaAdvh4J7vBZgPU XerJKrznLvFFRqKmC0W RftHA4fys83BIIgYTN6 bh1ukNXgzLyfciZjnDN wROnaZ4ChQKNpa614ZR XqG5VqINBgu1Y9uwQgH nImNBScxPY0bvN0QICb WWp1iXPuegR5qzYmiKU nE6gioU3zLYBbEV1mno bze7teXEjoGHevMYEcq JH0rpF1AIZvzWNqT0Nj jI4sGNTtDPtpHOFnoxs 9WlBnYc3nwNXccCwfNS xzYmtwYWdlXHBnbmNvb nRccGduZGVjXHBsYWlu XHBsYWluXGYwXGZzMjR jlQyldIvzxY2fGkFfJs McQOtvUU1lGYEzV2jlt JYoROGfTRAxX3lyLmQo pU8mwZhtWHlqdfIwIWF 7XEqge5fxpxhuvMVivc R0qPOmEkKxLfP3FJmha GFpblxmMVxmczIyXGxh cigjOMKpHIafV0crTdM cYZNvnEejSMpjf5EfAE YxXGZzMjJccGFyfX0= Diagnosis (test code = 34) i7hdoNTqLWJohYP9MdJ fPKFjl2bsi3RpjDLzgV GcYMjguIQjkiIbhy47v QV7qP02AZ5bZAQyDoI7 GUTzwnN2Cjz0FHMuWFZ oaUVxY827y2icf4owze FhbGQ8uPegITYkigywY nI9CUkkLJDkckewBBz7 USbqRVNmvZU5CAVdbNC uY3EpVBCgNC9ngxg1NU X8RTbzLLVpGhT4JCHms YQhCYJezQnsWHvnm936 ECY6YeIlRWCeizQqlOp pnU5fGsBaSLCCIfFkTK ZxoIozL8FlMKBkrH0ob 5s0KBhmnmFmBZh6KNIh Q4juvaohncAqe9XydB2 ms8qbO4PmxYwvP82jf2 gvtDCicZR2jSUqCZNig jWeWYGnPRQzqFsjL8k3 aXNccGFyfQ== Gross Description (test s6craOJiJSWrdLINIXa code = [id number]) wMVxhbnNpXHNwbHRwZ3 IgoxiiYFjtRD6bHE1rd BhdvVOfwICaBF0KTKDg ZmYxXHBhcGVydzEyMjQ iNBBaiAVdjYY5XAUnIN 1hcmdsMTgwMFxtYXJnc xD6OENmsUKpC1WrBHNs FW4jgalsPHU8RRsagK0 pwyZHFxptAj3veSZobG tcZjFcZmNoYXJzZXQwX UCgnYxtVYDmXBa9dG4M JvsiF35qv6G1Bes2OOR xZQMqN5ZaDJ1pGXKsrE NuP85WSugeVDW2DNOUR chzYJAkZW3Od4jnDIUh sEBhQZQ6MDvybJZnFIH dOYRoPAb6CIIqPSsctI WfEW4rfRegGgvseTkrv 2VjdCBcXGlkIDUxMDAy TJxtCELwQO1KOpXvEVE 2AXMwMYWuXWh6HEu1WC 2GPkOiOJVaSQZ7XRT9A TJnRGy1VMogMA5THCYq RmNdIRQ8OCQdYHScAAC hQMv2ZFMyKNymEBZpoP FsIFxcZnMgMTAgXFxmY oJwSRKhSNdpgcL2ETSv YWluXGJcZnMyMCBBOlx aCTZnCGjsrTwayG3mDB SbQ25po6WXe4KmPD2LZ Li4nwQquyzsjK5mEMBa trMpQLoqaEJvN6jzSwg iPqOwHyXcMHNNe29nwT TfdXQbPTEnq7DyIRv4h iOvO99iR8AoWQyrDIBd sgUxCIKlwOxkT8t1oLM 3HRPmVLOlPTMsH02jRB Djoo6rfj26hcOqqsYei CPwpYDuJvHex3X4FLLu y6P3PMCsETLuoETsbkk gFL31PZMaKVVdCD7hfE VkIHdpdGggcHJvYmFib PXajRflnyFliAQ3VTTu BNhkOXRvtCmnCUk8VOK 0Fk9ciEKjHFYpawLAPL 6uPWcrbs00POC5k2cuj WVsZHtcKlxmbGRpbnN0 IEhZUEVSTElOSyBuYW1 lPUxJTktCRUdJTnwyMT RwXgiscUFOZIP2IPtpy MfyvRb0x5lyeSSiq3a8 RTesXNH7vYdFz1uqyQH yMZahHgojlHWkoyH9PU yOEGBZMZvUSzFwGD7sI WxSTbdWHcX4TqKoSZP5 TJgOR8THoXX5Zfc5LVi 8fXtcZmxkcnNsdCBcJz FAjR8pbIfisH3hfGEqI 2hcZnMyMCANClxlcGlj FpAsqGOrNlJqhbQ7ZKK wmAKiAKX9IU4kASSxez npIMNnXLNgLPT9KUvwi D79bJAoNZJpVRFjeZJu fVxwbGFpbiANClxzbC0 wRiGux5kldUf6PUERKp ntnUTgzfnmmdW2PHYjt 6jcrFvuk1VkgBJbRK3n mBdczI8sBtDhCmPMBg5 = Disclaimer (test code = m4picFVmQHJfnUAnUyT 9844) aXRFeGOCkr4pjMSJybU FuZzEwMzNcZnRuYmpcd DDyRQScYyCpd7yuq575 aMEid2srVDVoEjR9aVX lIZHboPGyV128WMZoJT ete6bid7AqJTQxyOYhu 3M3ANHTgbfacQn1rNso M96hf3R7RiplN2rrRLU pQYNzR5LtIB2cBATqJv j1MYD0LJV7GSKgFPNxP 8PiRK4tJTAylCKxKGs2 d4pvvXnlQHMwSRZ8r3k iBFqataYhZF6ckb0kcD v5b9mpqpJtOCGnEUFck CRKLYXyW7MmoUruQr2y mHc1rChvPnvdOIR7Kyy 2AF5whw27kpc9sIbzSP VvtefwYwF2AUwlHEAte uvyNHl4LAeqKPMaeVH3 DZIdyQEaT3PbJIJmLE2 gebr9DRD7CFcdJLFdMg B2MSJvtVLtFUHrqVueP Pwjj212PPI2EjWpTL8g K6Ihe5B7eK4zsRKyPWG udPQwWcXnBYWsqf5kuW GgJNqvz0NmOBI9vfK3g HWlxYGyBGBxSP33Ldhj w0JcFxegXCO2AXHbobV vq8Kkp6xrHmGrbvFtD9 ekC8UgFAYyPBHeWKYuS xPwnbBsb2Dvv4UjlZPz pSi4j9vqFZDlFOVglRt ok4tlGNI9SNPbG5F7gA Mtm0ruVKrkYSVxuVU0l xM1QOEqxAWuM8ObzC8v NXEaLY1thxc1v0hsBVY 9XDgsPDCnOqH9zaL1AD BcaGVhZGVyeTcyMFxmb 687YSP6HgZsILQqw2Wf N0VigLzgF73hcBzzI93 rKPCaxTccmT7btIummG 5cZjBcZnMyNFxxbFxwb XJcazouCSeynsV9USsc hnicZMLbWBdzF2rvIyZ cPYCgrCbiPLrmd1QsCA WsAIWwEtjoruJ9RWPYl 55nJBGei4GaRCUupZ5v tYHcVIjwisWiqPK1LPi hdmUgYmVlbiBkZXZlbG 6mALOcPU9qALBzzfZgw t9zrsUcTHQgFDToQ7Jj cmlzdGljcyBkZXRlcm1 pvrLdLHW3ZCMWOS9ANJ KqXTUov01aNWQaaSbrv V4ztILmaiCpFWIbg7Qi rN5hgRPLAKHxY1ouSE4 tHLbkn5GdnYZnpZKryW N0FGIln6LiQrYghcYtn AXskINcP2WlzDgzF6af RQHgOKSqghOyxEHqs0F yRZXoaYC8rLIdCL2DXv PRj05oVYDzINGIoyGqN NUwbEqemAB2bgC9eA5u LiBJZiBhcHBsaWNhYmx uGGEuj164ms1rhyG9YB QrWLVwcbtzv3IaPOYlC KHvfU81MNKjCZSyqb3a vsmexRHhinPeV3Hjomo 1rQ0sLANbEJvuBNEhVI ZzMjJcbGFuZzEwMzNca GljaFxmMVxkYmNoXGYx KVzdG0wdVeYkZuGpYnl wYXJ9 [facility] [place] [place] Interpretation 2021-10-22 15:30:07 Test Item Value Reference Range Interpretation Comments Submitted Clinical History c3aksJJkTCKkb2arWSW (test code = 05937) mbGFuZzEwMzNcZnRuYm pcdWMxIHtccnRmMVxzc 6ViS3OhGuQySWufrqUb XGRlZmxhbmcxMDMzXGZ 0bmJqXHVjMVxkZWZmMH yzVv2dgVIfaJdfAuZaI WJhj7myzxZQdnxtuWk3 r9zaHPVvWzN0bMXaNKk sR1zomeYnzHJhJXGqYH f9nJ51SQEenP3jnVNoI SeqwzOeBhW1HRdzVMSa NuB2TXFpgRHcEMBuL9k yZWQwXGdyZWVuMFxibH VmAOD6rMibq9U9lKXfw GVldHtcZjBcZnMyMiBO o7HpVIp0eBfkB0IpFCT vDnC8nMNgKDDsSSvxJK NqVCWounD1tF14MDfcb wI1lBKfw7Mfm65va178 sQ5nxSMtKWW1VJAoVRF pgBIoOQEvWRP4IKKaaZ DwO0wnCQNpSB8zibzzI QglNDmlGQFymVY4VFVl yWJwI4UtLIVjBEqsQAM jncm1ViHbWt7zqITocJ fsGCmvo4mvz7cyiDPzU gc5KFCgSzUtMzglLLzp c4Dgq9qmRSKsjb6iVHP 9sRRexVzdr5D6uGJaNW AmsEGfytLxWUAuGeB8K MnbKE9fzd69KPUgRHQ4 jy5vkZEgfWrihuByfYX ePXssE2ToMZXui649VX AlE5ShJSNbd8L4slDdR vSiBCLeiEJ1pyL0IICj BJw2qSHqjjW0lwTteYD uD9rxtL9lDYOkXH7yne yat4ouRSjfHXuhWZFbi BU8jwK7NUGzdHRfN4Pt vS8fCCHlMHxjXMNhqkr 7AqArKe4lfUPrmYrfNT xzYmtwYWdlXHBnbmNvb nRccGduZGVjXHBsYWlu XHBsYWluXGYwXGZzMjR rcGxoaUetyP0cMhNnTa DyKGuvXD1lMQGdD4nzn QRdFUTiIFCyZ2jqWdXd nL9hwBkiUSptybEaJDI 0TLmgq7jzlswwwSNztk L2qWLgEhOkEtB4CKgmn GFpblxmMVxmczIyXGxh suasPVEiABaeG3nxZsE mYABvmYbvWDnsz1DpGL YxXGZzMjJccGFyfX0= Diagnosis (test code = 34) t4gfsWDeTZAwxIQ5YkN rWROkl7tbh5KjcARrqV FjSVstbRLcjwBure94w BQ3vJ67OG9wQQUvAfZ9 EBQqyuV3Zmg6QOMlUFL hhBKzA363k2fvq1pnmc IoaVO7sIfbJIFecylgG aI2CRlbQFYtsrbqTJa1 UMudUTPdwYJ9LZHrtBE lY2AiZBXlTX7gaoz9WI D6PBmxRZRjSiG4GECjt WIjMQGusRkuSCbmb375 TUO4AvAsNAAsphMptJw stC6jZqOjPIVCLcSaVE ZgcGjtJ3BkNCUtdM6ev 1e7FMxthtWeONs4QNWh Q9vkhvzbeiTnj7FwwZ0 ua7wiB3PbcEvpX08cc3 fkiWYmrYM0sPEhEPOdp gGdRACkZWFayHxoQ6i8 aXNccGFyfQ== Gross Description (test g1kvlJPmBCBxiFJCVLl code = [id number]) wMVxhbnNpXHNwbHRwZ3 ParqogSBxlDF2mFP1ya KftoDLspMYfHH6FJTCs ZmYxXHBhcGVydzEyMjQ yJARgsYNsgHI1FERrGU 1hcmdsMTgwMFxtYXJnc oJ0DYHnwXMuD2YyCVNu IU0ykdqiMKN6TQaysF9 vnlDPQclrTd4vtEGkgQ tcZjFcZmNoYXJzZXQwX XRxrTsbBJIgEZa6pW9E LirsS84ux4J5Nfb4UKM tDYBtG2LvNB1qAAFmsJ JwS22PVnhoLFZ5NNWAY dqvDRWcRR5Dj2hoLXIc aEXcJOX6HWjlkEQrVBH vUFNcANd0BRRyGEnoxQ EbIY8olOwnSuoqeUrnp 2VjdCBcXGlkIDUxMDAy DTbmVNObMH5AXgGbXYP 1ETObRZGwJCo4VWf1IM 5RSnGbQVBlVTN2HXA0W KTvNUb1CIqkFW3AAQTy NtCkTFN5MFEaCNUtPGR qOTr3RUXoAVmwVTEyzD FsIFxcZnMgMTAgXFxmY bWoVITwHFjveaV7GTOh YWluXGJcZnMyMCBBOlx uWWZtUJhuoQdfdA8kPF CbP81iy4IWf9DuGL5QC Jh5xhTlkwbemL0tFVAs uvZmFQvvoMTrO6riItb gOwKlRwDeBRCCn04ncU MpqGZyLMZzp4BiKVg6y mNsV47pN8KyYIjzWJVa vcQzVJTqrIncZ2z2vVO 4UIPcSECaMEYjS07xBB Ieii5csx99tbTrrqQzn YWqeERsYbVpt5F2WBBx g9J6JBCyNIAqhUCmknj oTT77DEOuRURqVL3qlQ VkIHdpdGggcHJvYmFib JJfqTtxtgBgeLO1IJCr GRxqQROafEirZIe9JVK 5Mu5ewIAgHNGgpfCEXN 9rMTkqoj30GZS5c0qlx WVsZHtcKlxmbGRpbnN0 IEhZUEVSTElOSyBuYW1 lPUxJTktCRUdJTnwyMT SpBgdzeEEGMKT8PStgw GhayZy1m9lybUNgs5v5 LAtbRIX9sRlYw8amdPU oDTufSxwbvLDpbrB2OH pKZFCOEFlKHtDzKL3fX AbGCwdEIfK7LiTfGYC6 YIdRQ8LRvNE8Taq3LIx 8fXtcZmxkcnNsdCBcJz UVgW6kvEyyqO9keYAqI 2hcZnMyMCANClxlcGlj VgHdtJKxNnHffzZ7NFL bbLWzGNF1FV8jBVGoqq rfOKVlUITlPZA9EUkfc P69gHNwLUTfKGEjdWYg fVxwbGFpbiANClxzbC0 nCuCxs9bppTr1WURSBe zlpICdfpooqeG2WVFml 8adxAuij3CryUBeCH7w yTvizR3lIrQbRcTIQw8 = Disclaimer (test code = b0pugYEcZIHyuYGiKzZ 9844) aHNJsKCDzr8uxYORjpL FuZzEwMzNcZnRuYmpcd FBwDFIkApFjd1mpk455 uSIro2ioNPPpPyY7mFY tETHifOCuY188UEDvTJ fsi9azg2AaXRXggMHxv 1I4WNAVkyaucAe4zFvm H38nl3T7SllbP1bqIZV oEANvN8PdQJ4zSTVsLl j5IOQ1SCZ9ZHTzHXBmC 1NpBP0jFROdmGIzURu8 d0gsoEenZHWuIGS6u0y uYWvcicDnEG6cpo2qaL b0l5wotiNeTUWbSYSkv JPZGRZsG8CtiFxgWg7q lTp3tWkbGvumPLN8Dxc 1FX3jul32imb2zLujZY QdcpbuRvF0XLrlEXBcr qnsHWj0QHkkUMPjsIF9 YOCxcGEwI7XqKTRrAP5 tale8BFH0XFliGZXjIe D1YLZcqIDkDHGlpCytB Xxnj592QTM2WuWzOT9l E2Reo7W0gD7tpCOsUCS myQDgWaXeYNZikv5mxI SmCRspl7AhKVK1epF2f JLgyJGjBVBnTU90Xsem n4VlXccyNSF6FCQgitC aa0Dcc3elOpNyirBpX0 htE6ZoNTQrISRsXDHhY sKmmuTig9Szh7UonKWt hWk6s3imUXWwSYKbyFy wp7moRQO7VHHuZ9H4uX Cje2zrCWmdOUUfvYJ6g dC2DTGwfHFrK4MioF3s FXLzLJ0wckj5i6fxJDF 4JQevWRHfQeL8chI7HL BcaGVhZGVyeTcyMFxmb 834RKM5YgOlJGRbd9Er D8QflTixT57qwJkgA31 cYWUgiIvoxI7blCfmkN 5cZjBcZnMyNFxxbFxwb AOaiynlMTewgqH6WXhe exxqPJYzEIehO3olDaQ jXMCjtOgeRGxps3RtSA EvLGSfXylvhwM3MQOIf 88vXTKxi9MmGCSjnO3h qENtGEoxkdVawIL5RGg hdmUgYmVlbiBkZXZlbG 9nYJBlNB0cFTDodlSqu h7txhVsBQGbDYHyX2Fo cmlzdGljcyBkZXRlcm1 yhoPeTOG7RSZQIU7LOB MlKCVwv44yLFNkjNhrq H5kkDFhleMsJLIfx2Cq wJ6aoHMMZHJwV3geZX4 xTJkdx2AbcLFkpPLgzD A9RKLfv1AkPfExlgKpe UKslVDeD9SmrCsxR8sn TBZwENOnxrGczILad0D rOPTzeSS4fZZzME0NVc BZv89dFITdVLFHbhJmA OPdoSkliGH8viQ6wC5f LiBJZiBhcHBsaWNhYmx gOALyj163vi8wxwL2TC ItHVFqtqvkk2IeGVXnD TPopI94JQEmLDVopc9x uwdkhOAfmwXlA7Pjbgm 3qE9mNBUzIBmbFYZjCX ZzMjJcbGFuZzEwMzNca GljaFxmMVxkYmNoXGYx LXrvC8wtHaNbJmWeAjb wYXJ9 [facility] [place]chorageZak Price2022-04-21 18:04:34 Test Item Value Reference Interpretation Comments [...] for thesemodifi cations were determined by [employer] [facility].If samp le result is greater than 50 0 pg/mL, physician may o rder atiter of the sample. Please contact [employer] [facility] if you wouldlike t o order a retest of this sample to obtain an actua l value.Samples a re held for 1 week after in itial testing date. Perf ormed At:[facility] [address] [place], [place] [address]Mwejgmcctp Director: Andi Taylor Ph.D ., BCLD (ABB)CLIA#: [id number] e: Lab Interpretation Abnormal (test code = 82528-4) [facility] Cancer [place]chorageFungitell, [id number] 18:04:34 Test Item Value Reference Interpretation Comments [...] for thesemodifi cations were determined by [employer] [facility].If samp le result is greater than 50 0 pg/mL, physician may o rder atiter of the sample. Please contact [employer] [facility] if you wouldlike t o order a retest of this sample to obtain an actua l value.Samples a re held for 1 week after in itial testing date. Perf ormed At:[facility] [address] [address]Axlxpmesap Director: Andi Taylor Ph.D ., BCLD (ABB)CLIA#: [id number] e: Lab Interpretation Abnormal (test code = 56965-6) [facility]ville[facility] Panel Path Review 2021-10-18 14:39:17RMP PRReviewed and Electronically signed by Pathologist:Mary Beth Parikh MD, PhD #[id number] [facility]USUnD[facility] CenterRespiratory PCR Panel Path [id number] 14:39:17RMP PRReviewed and Electronically signed by Pathologist:Mary Beth Parikh MD, PhD #[id number] [facility]USUnD[facility] CenterRespiratory PCR Panel, RN LPN CNA [id number] 14:29:47 Test Item Value Reference Range Interpretation [...] 6203) Lab Interpretation (test code = Abnormal 10801-0) [facility] Cancer [place]orageRespiratory PCR Panel, RN LPN CNA Swab 2021-10-18 14:29:47 Test Item Value Reference Range Interpretation [...] 6203) Lab Interpretation (test code = Abnormal 04510-6) [facility] Glucose [id number] 11:58:24 Test Item Value Reference Interpretation Comments Range POC Glucose (test 196 mg/dL 70-99 H RN Notifie dCapillary code = 50189-0) blood sample s, e.g. obtained by fingerstick, [...] Capillary code = 9554) Performing Lab (test [facility] code = 10837) [facility] MD Marianela gustafson Clinical Lab, [address] [place] [address], [place], [place] [address]; Healthcare Project Manager: Aletha Arciniega MD Lab Interpretation Abnormal (test code = 63872-3) [facility] Glucose [id number] 11:58:24 Test Item Value Reference Interpretation Comments Range POC Glucose (test 196 mg/dL 70-99 H RN Notifie dCapillary code = 29640-2) blood sample s, e.g. obtained by fingerstick, [...] Performing Lab (test [facility] [address] [facility] code = 14265) [facility] MD Marianela gustafson Clinical Lab, [address] [facility], [place], [place] [address]; Healthcare Project Manager: Aletha Arciniega MD Lab Interpretation Abnormal (test code = 49165-7) [facility] [id number] 18:35:38 Test Item Value Reference Range Interpretation Comments Final Report (test No Methicillin resistant code = 8488) Staphylococcus aureus isolated. Path Review (test The results have been code = 8492) reviewed and electronically signed by Pathologist:Mary Beth aPrikh MD, PhD #[id number] [facility]SA [facility] [id number] 18:35:38 Test Item Value Reference Range Interpretation Comments Final Report (test No Methicillin resistant code = 8488) Staphylococcus aureus isolated. Path Review (test The results have been code = 8492) reviewed and electronically signed by Pathologist:Mary Beth Parikh MD, PhD #[id number] [facility]villeVancomycin Trough Vancomycin trough on 10/17/21@10:30AM. Nurse please coordinate with lab to draw trough approximately 11 - 11.5hours after 10/16/21 evening vanco dose. Hold vancomycin doses if trough isgreater than 20 and notify MD. Thanks!2021-10-17 18:05:08 Test Item Value Reference Range [...] is code = not availablefo r this 38392-2) sample. The donna e reported is the samplecollectio n date. Vanco Tr Dose 10/17/2021 Level, date, a nd time Date (test of previous dos e is code = not availablefo r this 13937-4) sample. The donna e reported is the samplecollectio n date. PAIGE (test Vancomycin trough on code = PAIGE) 10/17/21@10:30AM. Nurse please coordinate with lab to draw trough approximately 11 - 11.5hours after 10/16/21 evening vanco dose. Hold vancomycin doses if trough is greater than 20 and notify MD. Thanks! [facility]ville[facility] Trough Vancomycin trough on 10/17/21@10:30AM. Nurse please coordinate with lab to draw trough approximately 11 - 11.5hours after 10/16/21 evening vanco dose. Hold vancomycin doses if trough isgreater than 20 and notify MD. Thanks!2021-10-17 18:05:08 Test Item Value Reference Range [...] is code = not availablefo r this 10294-5) sample. The donna e reported is the samplecollectio n date. Vanco Tr Dose 10/17/2021 Level, date, a nd time Date (test of previous dos e is code = not availablefo r this 49973-8) sample. The donna e reported is the samplecollectio n date. PAIGE (test Vancomycin trough on code = PAIGE) 10/17/21@10:30AM. Nurse please coordinate with lab to draw trough approximately 11 - 11.5hours after 10/16/21 evening vanco dose. Hold vancomycin doses if trough is greater than 20 and notify MD. Thanks! [facility]villeLegionella Urine Antigen Path [id number] 15:56:29Legionella Urine Antigen Path ReviewReviewed and Electronically signed by Pathologist:Mary Beth Charles, PhD #[id number] [facility] CANCER GARDENUnDallas Medical CenterLegionella Urine Antigen Path Liuxjy6490-04-20 15:56:29Legionella Urine Antigen Path ReviewReviewed and Electronically signed by Pathologist:Mary Beth Charles, PhD #[id number] [facility] CAN[facility]ER GARDENUnDallas Medical Center Kqyjllpydnpmk1319-39-20 11:00:32 Test Item Value Reference Range Interpretation Comments Procalcitonin (test code <0.04 See_Comment Pro calcitonin > 2.00 = 65715-2) ng/mL: Procalci tonin levels above 2. 00 [...] d ilution as it exceeds t he grocery packer's recommended ching it. Caution should be exercised when interpreting nunez ch values and done in con junction with clinical c ontext. [Automated mess age] The system which ge nerated this result tra nsmitted reference range : <=0.08 ng/mL. The refe rence range was not u sed to interpret this result as normal/abnormal . [facility] BrownsvilleProcalcitonin2022-04-20 11:00:32 Test Item Value Reference Range Interpretation Comments Procalcitonin (test code <0.04 See_Comment Pro calcitonin > 2.00 = 86850-4) ng/mL: Procalci tonin levels above 2. 00 [...] d ilution as it exceeds t he grocery packer's recommended ching it. Caution should be exercised when interpreting nunez ch values and done in con junction with clinical c ontext. [Automated mess age] The system which ge nerated this result tra nsmitted reference range : <=0.08 ng/mL. The refe rence range was not u sed to interpret this result as normal/abnormal . [facility]villeLegionella Urine Ksykjvb6897-05-36 19:49:58 Test Item Value Reference Range Interpretation Comments Legionella Urine Antigen Negative Interpretation (test code = 6383344) [facility]villeLegionella Urine Rfptrim9375-30-15 19:49:58 Test Item Value Reference Range Interpretation Comments Legionella Urine Antigen Negative Interpretation (test code = 5373519) [facility] Centertreptococcal Urine Antigen Path Uqtcnb7987-97-46 18:06:35Streptococcal Urine Antigen Path ReviewReviewed and Electronically signed by Pathologist:Mary Beth Parikh MD, PhD #[id number] [address] CENTERUnCH[facility] [place], TXtreptococcal Urine Antigen Path [id number] 18:06:35Streptococcal Urine Antigen Path ReviewReviewed and Electronically signed by Pathologist:Mary Beth Parikh MD, PhD #[id number] [facility] CENTERUnDallas Medical Center Streptococcus pneumoniae Urine Bqdpoff5982-03-84 16:43:46 Test Item Value Reference Range Interpretation Comments Streptococcal Urine Antigen Negative Negative Interpretation (test code = 72502565) [facility] Centertreptococcus pneumoniae Urine Dllnxyh3440-68-45 16:43:46 Test Item Value Reference Range Interpretation Comments Streptococcal Urine Antigen Negative Negative Interpretation (test code = 03572556) [facility]villeTroponin T (In-House)2021-10-15 18:48:52 Test Item Value Reference Range Interpretation Comments Troponin T (test code = 23 ng/L See_Comment H < 19 ng/L Suggest 93391-1) retest at 3 to 6 hours later to rule o ut myocardial infa rction >= 19 to <=52 n g/L Possible myocar dial injury. Suggest retest at 3 hours. - a change of < 20 ng/L, r etest at 6 hours - a change of >= 20 ng/L, suggestive of myocardial infa rction > 52 ng/L Sugge stive of myocardial infarction Crit ical value will be r eported when cTnT is > 52 ng/L and only report ed for the first in a series. Hemolyzed speci mens with Hemolysis Index >100 (100 mg/dl or moderate hemoly sis) may cause interferences a nd falsely low res ults. [Automated mess age] The system [employer] generated this result transmitted ref erence range: <=18. Th e reference range was not used to int erpret this result as normal/abnormal . Lab Interpretation Abnormal (test code = 61239-8) [facility]villeTroponin T (In-House)2021-10-15 18:48:52 Test Item Value Reference Range Interpretation Comments Troponin T (test code = 23 ng/L See_Comment H < 19 ng/L Suggest 78373-4) retest at 3 to 6 hours later to rule o ut myocardial infa rction >= 19 to <=52 n g/L Possible myocar dial injury. Suggest retest at 3 hours. - a change of < 20 ng/L, r etest at 6 hours - a change of >= 20 ng/L, suggestive of myocardial infa rction > 52 ng/L Sugge stive of myocardial infarction Crit ical value will be r eported when cTnT is > 52 ng/L and only report ed for the first in a series. Hemolyzed speci mens with Hemolysis Index >100 (100 mg/dl or moderate hemoly sis) may cause interferences a nd falsely low res ults. [Automated mess age] The system [employer] generated this result transmitted ref erence range: <=18. Th e reference range was not used to int erpret this result as normal/abnormal . Lab Interpretation Abnormal (test code = 14636-7) [facility] BrownsvilleLDH2022-04-18 16:36:02 Test Item Value Reference Range Interpretation Comments LDH (test code = 247 U/L 135-225 H Results gre ater than 53645-0) 1651 U/L may no t be reliable due to matrix effect w ith extended diluti on as it exceeds the grocery packer's recommended ching it. Caution should be exercised when interpreting nunez ch values and done in conjunction [facility] clinical contex t. Lab Interpretation (test Abnormal code = 00529-1) [facility] BrownsvilleLDH2022-04-18 16:36:02 Test Item Value Reference Range Interpretation Comments LDH (test code = 247 U/L 135-225 H Results gre ater than 88990-4) 1651 U/L may no t be reliable due to matrix effect w ith extended diluti on as it exceeds the grocery packer's recommended ching it. Caution should be exercised when interpreting nunez ch values and done in conjunction [facility] clinical contex t. Lab Interpretation (test Abnormal code = 32495-0) [facility]villeNT-Pro BNP (In-House)2021-10-15 16:31:03 Test Item Value Reference Range Interpretation Comments NT ProBNP (test code = 137 pg/mL See_Comment H [Aut omated message] 65035-9) The system [employer] generated this result transmit lakhwinder reference range : <=125. The refe rence range was not u sed to interpret th is result as normal/abnormal . Lab Interpretation (test Abnormal code = 42780-3) [facility]villeNT-Pro BNP (In-House)2021-10-15 16:31:03 Test Item Value Reference Range Interpretation Comments NT ProBNP (test code = 137 pg/mL See_Comment H [Aut omated message] 64450-5) The system [employer] generated this result transmit lakhwinder reference range : <=125. The refe rence range was not u sed to interpret th is result as normal/abnormal . Lab Interpretation (test Abnormal code = 14209-2) [facility] BrownsvilleCreatine Yerjih5335-39-92 16:31:01 Test Item Value Reference Range Interpretation Comments CK (test code = 2157-6) 48 U/L 39-308 [facility]villeCreatine Yctzzn9407-42-01 16:31:01 Test Item Value Reference Range Interpretation Comments CK (test code = 2157-6) 48 U/L 39-308 [facility]2022-04-18 16:31:00 Test Item Value Reference Range Interpretation Comments CK MB (test code = 2.2 ng/mL See_Comment [Automat ed message] The 34356-6) system which ge nerated this result tra nsmitted reference range : <=10.4. The reference r jose was not used to int erpret this result as normal/abnormal . [facility]2022-04-18 16:31:00 Test Item Value Reference Range Interpretation Comments CK MB (test code = 2.2 ng/mL See_Comment [Automat ed message] The 64983-3) system which ge nerated this result tra nsmitted reference range : <=10.4. The reference r jose was not used to int erpret this result as normal/abnormal . [facility]villeCOVID-19 (SARS-CoV-2)Defwjdfueext-VM7806-66-18 16:04:24 Test Item Value Reference Range Interpretation Comments COVID19 Not Detected Not Detected (SARS-CoV-2) (test code = 71538-8) COVID19 SARS Inpatient Indication (test Admission code = 88655) Covid 19 Comment See Note The kacy S ARS-CoV-2 (test code = [place] [address]) use on the xen[employer] [...] sheet for patie nts provided by the grocery packer ([employer]) can be rev iewed at: https://www.fda .gov/m edia/167302/kunal nload. A fact sheet fo r Health Care pro viders is provided by the grocery packer ([employer]) and can be reviewed at: https://www.fda .gov/m edia/564880/kunal nload Results must be interpreted wit hin [...] is assay has been authorized by t [facility] for use only un areli Emergency Use Authorization ( EUA) in laboratories that have been CLIA-certified to perform moderate-comple xity and high-comple xity tests. The Microbiology Laboratory at [facility], CLIA Accreditation #[id number] and CAP Accreditation #[id number], verif ied the performance characteristics of this assay. Int ernal controls are ed to monitor all sta ges of the test proces s. [facility]villeCOVID-19 (SARS-CoV-2)Lpdyyiazharl-XK1999-05-18 16:04:24 Test Item Value Reference Range Interpretation Comments COVID19 Not Detected Not Detected (SARS-CoV-2) (test code = 56283-0) COVID19 SARS Inpatient Indication (test Admission code = 95679) Covid 19 Comment See Note The kacy S ARS-CoV-2 (test code = [place] [address]) use on the xen[employer] System [...] sheet for patie nts provided by the grocery packer ([employer]) can be rev iewed at: https://www.fda .gov/m edia/525379/kunal nload. A fact sheet fo r Health Care pro viders is provided by the grocery packer ([employer]) and can be reviewed at: https://www.fda .gov/m edia/507501/kunal nload Results must be interpreted wit hin [...] is assay has been authorized by t [facility] for use only un areli Emergency Use Authorization ( EUA) in laboratories that have been CLIA-certified to perform moderate-comple xity and high-comple xity tests. The Microbiology Laboratory at [facility], CLIA Accreditation #[id number] and CAP Accreditation #[id number], verif ied the performance characteristics of this assay. Int ernal controls are ed to monitor all sta ges of the test proces s. [facility] BrownsvilleaPTT2022-04-18 15:47:24 Test Item Value Reference Range Interpretation Comments aPTT (test code = 29.9 See_Comment [Automate d message] The 20348-7) system which ge nerated this result transmit lakhwinder reference range : 24.7 - 36.8 second(s). The reference range was not used to interpr et this result as paras l/abnormal. [facility] BrownsvilleaPTT2022-04-18 15:47:24 Test Item Value Reference Range Interpretation Comments aPTT (test code = 29.9 See_Comment [Automate d message] The 84458-0) system which ge nerated this result transmit lakhwinder reference range : 24.7 - 36.8 second(s). The reference range was not used to interpr et this result as paras l/abnormal. [facility] BrownsvilleProthrombin Time with [id number] 15:47:23 Test Item Value Reference Range Interpretation Comments PT (test code = 5902-2) 13.5 See_Comment [Au tomated message] The system whic h generated this result transmitted ref erence range: 11.5 - 1 3.9 second(s). The reference range was not used to int erpret this result as normal/abnormal . INR (test code = 6301-6) 1.11 0.90-1.10 H Lab Interpretation (test Abnormal code = 51046-8) [facility] BrownsvilleProthrombin Time with [id number] 15:47:23 Test Item Value Reference Range Interpretation Comments PT (test code = 5902-2) 13.5 See_Comment [Au tomated message] The system [employer] generated this result transmitted ref erence range: 11.5 - 1 3.9 second(s). The reference range was not used to int erpret this result as normal/abnormal . INR (test code = 6301-6) 1.11 0.90-1.10 H Lab Interpretation (test Abnormal code = 51493-3) [facility]villeRespiratory Viral Panel + COVID-19, Nasopharyngeal [id number] 01:19:11 Test Item Value Reference Range Interpretation Comments Adenovirus (test code = Not Detected Not Detected 4748) Coronavirus 229E (test Not Detected Not Detected code = 5349) Coronavirus HKU1 (test Detected Not Detected A code = 5350) Coronavirus NL63 (test Not Detected Not Detected code = 5351) Coronavirus OC43 (test Not Detected Not Detected code = 5352) COVID19 (SARS-CoV-2) Not Detected Not Detected (test code = 50565-2) Human Metapneumovirus Not Detected Not Detected (test [...] Detected Not Detected Parapertussis (test code = 21644) Bordetella pertussis Not Detected Not Detected (test [...] including SARS-CoV-2, from a single nasopharyngeal swab (TRACK MANAGER) specimen obtained from individuals suspected of respiratory [...] that may not be detected by an TRACK MANAGER specimen. Internal controls are used to monitor [...] and high-complexity tests. The [facility], CLIA Accreditation #[id number] and CAP Accreditation #[id number], verified the performance characteristics of this assay. [facility] performs the assay using the [employer] System. Lab Interpretation Abnormal (test code = 39310-4) [facility], Nasopharyngeal [id number] 01:19:11 Test Item Value Reference Range Interpretation Comments Adenovirus (test code = Not Detected Not Detected 1621) Coronavirus 229E (test Not Detected Not Detected code = 5349) Coronavirus HKU1 (test Detected Not Detected A code = 5350) Coronavirus NL63 (test Not Detected Not Detected code = 5351) Coronavirus OC43 (test Not Detected Not Detected code = 5352) COVID19 (SARS-CoV-2) Not Detected Not Detected (test code = 55858-9) Human Metapneumovirus Not Detected Not Detected (test [...] Detected Not Detected Parapertussis (test code = 79953) Bordetella pertussis Not Detected Not Detected (test [...] including SARS-CoV-2, from a single nasopharyngeal swab (TRACK MANAGER) specimen obtained from individuals suspected of respiratory [...] that may not be detected by an TRACK MANAGER specimen. Internal controls are used to monitor [...] and high-complexity tests. The Microbiology [facility] at [facility], CLIA Accreditation #[id number] and CAP Accreditation #[id number], verified the performance characteristics of this assay. [facility] performs the assay using the [employer] System. Lab Interpretation Abnormal (test code = 32629-3) [facility] [id number] 13:32:30 Test Item Value Reference Range Interpretation Comments POC Crea (test 0.6 mg/dL 0.6-1.3 Medications, code = 53891-3) especially h ydroxyurea or supplements, such as ascorbate, c an interfere with test results causing a falsely and significantly h igher result than exp ected. If a problem is suspected with a patient's resul t, a sample should b e sent to the laborato ry for confirmatory te sting. Method descript ion: [...] Normal eGF R >= 60 code = 96898-3) mL/min/1.73 m2 The eGFR is calcula lakhwinder using the CKD-E PI equation. The e GFR declines with a ge. eGFR <60 mL/min /1.73 m2 is considere d as "decreased" Thi s equation should only be used for pat ients 18 and older. According to National Kidney Foundation's Ki dney Disease Outcome [...] Normal eG FR >= 60 code = 33507-8) mL/min/1.73 m2 The eGFR is calcula lakhwinder using the CKD-E PI equation. The e GFR declines with a ge. eGFR <60 mL/min /1.73 m2 is considere d as "decreased" Thi s equation should only be used for pat ients 18 and older. According to e National Kidney Foundation's Ki dney Disease Outcome Quality Initiat ceci (KDOQI) classif ication and 2011 Kidney Disease Improvi ng Global Outcomes (KDIGO) [...] Yes (test code = 6672) Performing Lab [facility] (test code = [facility] [address]) Clinical Lab, [address] [facility], [place], [place] [address]; Healthcare Project Manager: Aletha Arciniega MD [facility] MD [facility] [id number] 13:32:30 Test Item Value Reference Range Interpretation Comments POC Crea (test 0.6 mg/dL 0.6-1.3 Medications, code = 84847-7) especially h ydroxyurea or supplements, such as ascorbate, c an interfere with test results causing a falsely and significantly h igher result than exp ected. If a problem is suspected with a patient's resul t, a sample should b e sent to the laborato ry for confirmatory te sting. Method descript ion: [...] Normal eGF R >= 60 code = 12894-3) mL/min/1.73 m2 The eGFR is calcula lakhwinder [...] Normal eG FR >= 60 code = 31212-4) mL/min/1.73 m2 The eGFR is calcula lakhwinder [...] Yes (test code = 6672) Performing Lab [facility] (test code = [facility] [address]) Clinical Lab, [address] [facility], [place], [place] [address]; Healthcare Project Manager: Aletha Arciniega MD [facility] [place]
[2022-03-23 11:49] LABS: Hematocrit 35.5 % (39.6-49.0); Lymphocytes % 10.9 % (15.3-44.8); MCV 85.7 fL (80-100); MPV 6.7 fL (7.6-11.3); RBC Red Blood Cell Count 4.14 M/uL (4.33-5.43)
[2022-03-23 11:50] LABS: Protime INR 1.12
[2022-03-23] MEDS ORDERED: NA CHLORIDE 0.9% 1,000 ML ONE ×2 (11:58→13:31)
[2022-03-23] MEDS ORDERED: LEVALBUTEROL 1.25 MG/3 ML NEB ONE (11:58)
[2022-03-23] MEDS ORDERED: METHYLPREDNISOLONE 125 MG INJ ONE (11:58)
[2022-03-23] MEDS ORDERED: MAGNESIUM SULFATE 1 gm IVPB 1 GM/100 ML BAG IV ONE (11:59)
--- NOTE | 2022-03-23 12:33 | RAD REPORT ---
EXAM DESCRIPTION: RAD - Chest Single View - 03/23/2022 12:25 pm CLINICAL HISTORY: Cough Chest pain. COMPARISON: Chest Single View dated 03/09/2022; Chest Single View dated 03/07/2022; Chest For Pe Angio dated 03/07/2022 FINDINGS: Portable technique limits examination quality. Area lung consolidation in the right upper lobe laterally has slightly diminished since the comparati ve study. Prominent emphysema. Moderate reticular opacities in the left lung base have progressed com parative study. The heart is normal in size. No displaced fractures. IMPRESSION: Reticular opacities in the left lung base progressed since the prior study and likely re present infection/pneumonia.
[2022-03-23 12:42] LABS: Albumin 2.5 g/dL (3.4-5.0); Bilirubin Total 0.5 mg/dL (0.2-1.0); Potassium 3.3 mmol/L (3.5-5.1); Protein, Total 6.3 g/dL (6.4-8.2); Troponin High Sensitivity 4.3 pg/mL (<58.9)
[2022-03-23] MEDS ORDERED: FENTANYL CITR 100 MCG/2 ML ONE (13:01)
--- NOTE | 2022-03-23 13:19 | EDPHYS ---
Physician Documentation [facility] Name: Chato Moreno IV Age: 66 yrs Sex: Male : 1955 Arrival Date: 03/23/2022 Time: 11:11 Bed 17 Private MD: ED Physician Shashank Metz HPI: 03/23 12:03 This 66 yrs old Male presents to ER via Ambulatory with complaints of Chest Pain, rn Breathing Difficulty. 12:03 The patient or guardian reports chest pain that is located primarily in the chest rn diffusely. Onset: 1 week(s) ago. The pain does not radiate. Associated signs and symptoms: Pertinent positives: cough, shortness of breath, Pertinent negatives: abdominal pain, lower extremity swelling. The chest pain is described as sharp, stabbing. Duration: The patient or guardian reports multiple episodes, that are intermittent. Modifying factors: The symptoms are alleviated by nothing. the symptoms are aggravated by deep breath. Severity of pain: At its worst the pain was moderate in the emergency department the pain is unchanged. The patient has not experienced similar symptoms in the past. The patient has not recently seen a physician. Historical: - Allergies: 11:35 No Known Allergies; ko1 - Immunization history:: Adult Immunizations unknown. - Social history:: Smoking status: Patient/guardian denies using tobacco. - Family history:: not pertinent. - Hospitalizations: : No recent hospitalization is reported. ROS: 12:03 Constitutional: Negative for fever, chills, and weight loss, Eyes: Negative for injury, rn pain, redness, and discharge, Neck: Negative for injury, pain, and swelling, Cardiovascular: + chest pain Respiratory: + cough and sob Abdomen/GI: Negative for abdominal pain, nausea, vomiting, diarrhea, and constipation, Back: Negative for injury and pain, MS/Extremity: Negative for injury and deformity, Skin: Negative for injury, rash, and discoloration, Neuro: Negative for headache, weakness, numbness, tingling, and seizure. Exam: 12:03 Constitutional: Thin male, + repsiratory distressed Head/Face: Normocephalic, rn atraumatic. Eyes: Periorbital areas with no swelling, redness, or edema. ENT: dry MM Cardiovascular: Tachycardic, regular Respiratory: + moderate tachypnea, no retractions, + bilateral wheezing Abdomen/GI: soft, non-tender Skin: Warm, dry MS/ Extremity: Pulses equal, no cyanosis. Neuro: Awake and alert, GCS 15 13:14 ECG was reviewed by the Attending Physician. rn Vital Signs: 11:31 BP 93 / 62; Pulse 100; Resp 24; Temp 98.1; Pulse Ox 99% on 2 lpm NC; Weight 51.26 kg; ko1 Height 5 ft. 7 in. (170.18 cm); Pain 8/10; 12:12 BP 101 / 74; Pulse 93; Resp 22; Pulse Ox 98% on 2 lpm NC; mb8 12:46 BP 114 / 72; Pulse 83; Resp 17; Pulse Ox 97% ; Pain 8/10; mb8 13:59 BP 104 / 62; Pulse 89; Resp 16; Pulse Ox 98% on 2 lpm NC; mb8 14:51 BP 120 / 87; Pulse 92; Resp 19; Pulse Ox 99% 2 lpm ; mb8 15:34 BP 110 / 69; Pulse 82; Resp 17; Temp 98.7; Pulse Ox 99% on 2 lpm NC; mb8 11:31 Body Mass Index 17.70 (51.26 kg, 170.18 cm) ko1 MDM: 11:15 Patient medically screened. rn 13:17 ED course: Pt with pneumonia and 2 or more SIRS criteria, but no evidence of organ rn dysfunction at this time. Does not meet criteria for severe sepsis or shock. Abx ordered after blood cultures. Will admit. 03/23 11:25 Order name: Blood Culture Adult (2) rn 03/23 11:25 Order name: CBC with Diff; Complete Time: 13: rn 03/23 11:25 Order name: CMP; Complete Time: 13: rn 03/23 11:25 Order name: Lactate; Complete Time: 13: 03/23 11:25 Order name: Protime (+inr); Complete Time: 13: rn 03/23 11:25 Order name: Ptt, Activated; Complete Time: 13: rn 03/23 11:25 Order name: Urine Culture rn 03/23 11:25 Order name: Urine Microscopic Only; Complete Time: 14:57 03/23 11:25 Order name: BNP; Complete Time: 13: rn 03/23 11:25 Order name: SARS-COV-2 RT PCR (Document "Date of Onset" if Symptomatic); Complete Time: rn 13:03/23 11:25 Order name: Flu; Complete Time: 13:06 rn 03/23 11:26 Order name: Troponin High Sensitivity; Complete Time: 13:06 rn 03/23 14:28 Order name: Urine Dipstick-Ancillary; Complete Time: 14:57 EDMS 03/24 03:52 Order name: CBC with Automated Diff; Complete Time: 04:19 EDMS 03/23 11:25 Order name: Chest Single View XRAY; Complete Time: 13:06 rn 03/23 11:25 Order name: Accucheck; Complete Time: 12:20 rn 03/23 11:25 Order name: CT Chest For PE Angio; Complete Time: 13:34 rn 03/23 14:07 Order name: Diet Heart Healthy; Complete Time: 14:08 mb8 03/24 04:00 Order name: Basic Metabolic Panel; Complete Time: 04:19 EDMS 03/24 04:00 Order name: Phosphorus; Complete Time: 04:19 EDMS 03/24 04:00 Order name: Magnesium; Complete Time: 04:19 EDMS 03/24 04:14 Order name: Manual Differential; Complete Time: 04:19 EDMS 03/23 11:25 Order name: Cardiac monitoring; Complete Time: 11:46 rn 03/23 11:25 Order name: EKG - Nurse/Tech; Complete Time: 12:20 rn 03/23 11:25 Order name: IV Saline Lock - Large Bore; Complete Time: 11:46 rn 03/23 11:25 Order name: Labs collected and sent; Complete Time: 11:46 rn 03/23 11:25 Order name: O2 Per Protocol; Complete Time: 11:46 rn 03/23 11:25 Order name: O2 Sat Monitoring; Complete Time: 11:46 rn 03/23 11:25 Order name: Urine Dipstick-Ancillary (obtain specimen); Complete Time: 15:35 rn 03/23 11:53 Order name: Labs - recollect needed: recollect all the blood please; Complete Time: eb 12:20 EC:14 Rate is 92 beats/min. Rhythm is regular. QRS [place] is Normal. VT interval is normal. QRS rn interval is normal. QT interval is normal. No Q waves. T waves are Normal. No ST changes noted. Clinical impression: Normal ECG. Interpreted by me. Reviewed by me. Administered Medications: 12:00 Drug: SOLU-Medrol (methylPrednisoLONE) 125 mg Route: IVP; Site: right antecubital; mb8 13:19 Follow up: Response: No adverse reaction mb8 12:00 Drug: Xopenex (levalbuterol) (3) 1.25 mg Route: Inhalation; mb8 12:00 Drug: Magnesium Sulfate 1 grams Route: IVPB; Infused Over: 1 hrs; Site: right mb8 antecubital; 13:19 Follow up: Response: No adverse reaction; IV Status: Completed infusion mb8 12:00 Drug: NS 0.9% 1000 ml Route: IV; Rate: 1000 ml; Site: right antecubital; mb8 13:19 Follow up: Response: No adverse reaction; IV Status: Completed infusion mb8 13:19 Drug: fentaNYL (PF) 25 mcg Route: IVP; Site: right antecubital; mb8 14:00 Follow up: Response: No adverse reaction; Pain is unchanged, physician notified mb8 13:32 Drug: NS 0.9% 1000 ml Route: IV; Rate: 1 bolus; Site: right antecubital; mb8 15:34 Follow up: Response: No adverse reaction; IV Status: Completed infusion mb8 13:33 Drug: Rocephin (cefTRIAXone) 1 grams Route: IV; Rate: calculated rate; Site: right mb8 antecubital; 13:59 Follow up: Response: No adverse reaction; IV Status: Completed infusion mb8 13:33 Drug: Zithromax (azithromycin) 500 mg Route: IVPB; Infused Over: 1 hrs; Site: right mb8 antecubital; 14:40 Follow up: Response: No adverse reaction; IV Status: Completed infusion mb8 Disposition Summary: 03/23/22 13:19 Hospitalization Ordered Hospitalization Status: Inpatient Admission rn Provider: Fab Monroe rn Condition: Stable rn Problem: new rn Symptoms: have improved rn Bed/Room Type: Standard rn Location: Telemetry/MedSurg (Inpatient)(03/24/22 14:20) dw Room Assignment: [facility](03/24/22 14:20) dw Diagnosis - Pneumonia, unspecified organism rn Forms: - Medication Reconciliation Form rn - SBAR form rn Signatures: Dispatcher [employer] EDMS [place], Jocelyne, RN RN Shashank Puri MD MD rn Botello, Elizabeth eb Bates, Michael RN RN mb8 Tamanna Castillo RN RN Larissa Carpenter, GRIS PAAbeba sb4 Corrections: (The following items were deleted from the chart) 17: 13:19 Telemetry/MedSurg (Inpatient) rn manav 17: 13:19 rn manav 03/24 14:03/23 17:08 [facility] ER [facility] eb dw 03/24 14:03/23 17:08 [facility]
--- NOTE | 2022-03-23 13:19 | ER ---
Nurse's Notes [facility] Name: Chato Moreno IV Age: 66 yrs Sex: Male : 1955 Arrival Date: 03/23/2022 Time: 11:11 Bed 17 Private MD: Diagnosis: Pneumonia, unspecified organism Presentation: 03/23 11:31 Chief complaint: Patient states: chest pain and short of breath x 1 week. Coronavirus ko1 screen: Client denies travel out of the [place] in the last 14 days. At this time, the client does not indicate any symptoms associated with coronavirus-19. Ebola Screen: No symptoms or risks identified at this time. Initial Sepsis Screen: Does the patient meet any 2 criteria? RR > 20 per min. HR > 90 bpm. Does the patient have a suspected source of infection? No. Patient's initial sepsis screen is negative. If YES to both, name of provider notified: Shashank Metz MD. Risk Assessment: Do you want to hurt yourself or someone else? Patient reports no desire to harm self or others. Onset of symptoms was March 23, 2022 at 11:35. 11:31 Method Of Arrival: Ambulatory ko1 11:31 Acuity: STEWART 2 ko1 Triage Assessment: 11:35 General: Appears distressed, uncomfortable, malnourished, Behavior is calm, ko1 cooperative, appropriate for age. Pain: Complains of pain in chest. Historical: - Allergies: 11:35 No Known Allergies; ko1 - Immunization history:: Adult Immunizations unknown. - Social history:: Smoking status: Patient/guardian denies using tobacco. - Family history:: not pertinent. - Hospitalizations: : No recent hospitalization is reported. Screenin:12 Abuse screen: Denies threats or abuse. Denies injuries from another. Nutritional mb8 screening: No deficits noted. Tuberculosis screening: No symptoms or risk factors identified. Fall Risk No fall in past 12 months (0 pts). Secondary diagnosis (15 points) IV access (20 points). Ambulatory Aid- None/Bed Rest/Nurse Assist (0 pts). Gait- Normal/Bed Rest/Wheelchair (0 pts) Mental Status- Oriented to own ability (0 pts). Total [place]hton Fall Scale indicates Low Risk Score (25-44 pts). Fall prevention measures have been instituted. Side Rails Up X 2 As available Patient and Family Educated on Fall Prevention Program and strategies. Assessment: 11:40 General: Appears uncomfortable, Behavior is calm, cooperative, appropriate for age. mb8 Pain: Pain does not radiate. Pain began unk. Cardiovascular: Chest pain is described as mild, Reports chest hurts to breath deep. Respiratory: Airway is patent Respiratory effort is even, unlabored, Respiratory pattern is regular, symmetrical, Breath sounds with wheezes bilaterally. 13:00 Reassessment: Patient and/or family updated on plan of care and expected duration. Pain mb8 level reassessed. Patient is alert, oriented x 3, equal unlabored respirations, skin warm/dry/pink. 14:00 Reassessment: Patient and/or family updated on plan of care and expected duration. Pain mb8 level reassessed. Patient is alert, oriented x 3, equal unlabored respirations, skin warm/dry/pink. 15:00 Reassessment: Patient and/or family updated on plan of care and expected duration. Pain mb8 level reassessed. Patient is alert, oriented x 3, equal unlabored respirations, skin warm/dry/pink. Vital Signs: 11:31 BP 93 / 62; Pulse 100; Resp 24; Temp 98.1; Pulse Ox 99% on 2 lpm NC; Weight 51.26 kg; ko1 Height 5 ft. 7 in. (170.18 cm); Pain 8/10; 12:12 BP 101 / 74; Pulse 93; Resp 22; Pulse Ox 98% on 2 lpm NC; mb8 12:46 BP 114 / 72; Pulse 83; Resp 17; Pulse Ox 97% ; Pain 8/10; mb8 13:59 BP 104 / 62; Pulse 89; Resp 16; Pulse Ox 98% on 2 lpm NC; mb8 14:51 BP 120 / 87; Pulse 92; Resp 19; Pulse Ox 99% 2 lpm ; mb8 15:34 BP 110 / 69; Pulse 82; Resp 17; Temp 98.7; Pulse Ox 99% on 2 lpm NC; mb8 11:31 Body Mass Index 17.70 (51.26 kg, 170.18 cm) ko1 Vitals: 12:12 Cardiac Rhythm Assessment Sinus rhythm. mb8 15:34 Cardiac Rhythm Assessment Sinus rhythm. mb8 ED Course: 11:11 Patient arrived in ED. mr 11:15 Metz, Shashank, MD is Attending Physician. rn 11:35 Triage completed. ko1 11:40 Inserted saline lock: 18 gauge in right antecubital area, using aseptic technique. mb8 Blood collected. Oxygen administration via nasal cannula \T\ 2L/min. 11:40 Patient has correct armband on for positive identification. Placed in gown. Bed in low mb8 position. Call light in reach. Side rails up X2. Client placed on continuous cardiac and pulse oximetry monitoring. NIBP monitoring applied. spring layer on. 11:46 Kang Early, RN is Primary Nurse. mb8 11:46 Chest Single View XRAY Sent. mb8 12:13 No provider procedures requiring assistance completed. mb8 12:26 Chest Single View XRAY In Process Unspecified. EDMS 13:07 CT Chest For PE Angio In Process Unspecified. EDMS 13:18 Fab Monroe is Hospitalizing Provider. rn Administered Medications: 12:00 Drug: SOLU-Medrol (methylPrednisoLONE) 125 mg Route: IVP; Site: right antecubital; mb8 13:19 Follow up: Response: No adverse reaction mb8 12:00 Drug: Xopenex (levalbuterol) (3) 1.25 mg Route: Inhalation; mb8 12:00 Drug: Magnesium Sulfate 1 grams Route: IVPB; Infused Over: 1 hrs; Site: right mb8 antecubital; 13:19 Follow up: Response: No adverse reaction; IV Status: Completed infusion mb8 12:00 Drug: NS 0.9% 1000 ml Route: IV; Rate: 1000 ml; Site: right antecubital; mb8 13:19 Follow up: Response: No adverse reaction; IV Status: Completed infusion mb8 13:19 Drug: fentaNYL (PF) 25 mcg Route: IVP; Site: right antecubital; mb8 14:00 Follow up: Response: No adverse reaction; Pain is unchanged, physician notified mb8 13:32 Drug: NS 0.9% 1000 ml Route: IV; Rate: 1 bolus; Site: right antecubital; mb8 15:34 Follow up: Response: No adverse reaction; IV Status: Completed infusion mb8 13:33 Drug: Rocephin (cefTRIAXone) 1 grams Route: IV; Rate: calculated rate; Site: right mb8 antecubital; 13:59 Follow up: Response: No adverse reaction; IV Status: Completed infusion mb8 13:33 Drug: Zithromax (azithromycin) 500 mg Route: IVPB; Infused Over: 1 hrs; Site: right mb8 antecubital; 14:40 Follow up: Response: No adverse reaction; IV Status: Completed infusion mb8 Medication: 15:35 VIS not applicable for this client. mb8 Outcome: 13:19 Decision to Hospitalize by Provider. katelynn 03/24 15:19 Patient left the ED. ss Signatures: Dispatcher [employer] Bernadette Ngo Roman, MD MD rn Smirch, Shelby, RN RN ss Kang Early RN RN mb8 Tamanna Castillo RN RN ko1
[2022-03-23] MEDS ORDERED: CEFTRIAXONE 1000 MG/VIAL ONE (13:30)
[2022-03-23] MEDS ORDERED: AZITHROMYCIN 500 MG INJ IVPB ONE (13:31)
[2022-03-23] MEDS ORDERED: NA CHLORIDE 0.9% 250 ML ONE ×2 (13:31→20:25)
--- NOTE | 2022-03-23 13:34 | RAD REPORT ---
EXAM DESCRIPTION: CT - Chest For Pe Angio - 03/23/2022 1:05 pm CLINICAL HISTORY: Chest pain. hx of lung cancer, CP/SOB COMPARISON: Chest Single View dated 03/23/2022; Chest For Pe Angio dated 03/07/2022 TECHNIQUE: CT angiogram of the pulmonary arteries was performed with MIP. All CT scans are performed using dose optimization technique as appropriate and may include automated exposure control or mA/KV adjustment according to patient size. FINDINGS: No evidence of pulmonary thromboembolism. No acute aortic finding demonstrated. Irregular opacity in the lateral right upper lobe is again seen and appears mildly diminished since t he comparative study. Emphysematous changes are present with poorly defined lung opacities in the lef t base and lingula, reticular in appearance, likely infectious in etiology. Trace left pleural fluid. No concerning bony finding. IMPRESSION: No evidence of pulmonary thromboembolism. Reticular opacities are seen in the left lung base posteriorly as well as the lingula the infectious in etiology. Mild diminishment in the right upper lobe lateral pleural-based lung opacity.
[2022-03-23 14:28] LABS: Urine Blood Negative (Negative); Urine Glucose Negative (Negative); Urine Protein Negative (Negative); Urine Specific Gravity 1.015 (1.005-1.030)
[2022-03-23 14:51] LABS: Urine Mucus Slight /HPF (None Seen); Urine RBC <5 /HPF (None Seen)
--- NOTE | 2022-03-23 15:54 | P.HP ---
Certification for Inpatient Patient admitted to: Inpatient With expected LOS: >2 Midnights Practitioner: I am a practitioner with admitting privileges, knowledge of patient current condition, hospital course, and medical plan of care. Services: Services provided to patient in accordance with Admission requirements found in Title 42 Section 412.3 of the Code of Federal Regulations Patient History Date of Service: 03/23/22 Reason for admission: Shortness of breath and coughing History of Present Illness: 66-year-old gentleman with a history of lung cancer status post radiation therapy, cranial radiation, chemotherapy, history of COVID-pneumonia presented to the emergency department with a complaint of progressive worsening shortness of breath and nonproductive cough. Patient was hospitalized for pneumonia and COPD exacerbation a couple of weeks ago. He was treated with antibiotics and discharged with prednisone taper and antibiotics. He was also prescribed nebulizer but patient never went for it. He denies any fever. Patient reports generalized weakness and shortness of breath with the slightest exertion. Patient not hypoxic. He was placed on 2 L oxygen by nasal cannula. Noted to be coughing persistently. Cough is nonproductive. He denies any fever. He reports chest pain worse with breathing. CTA thorax is reporting possible left lung pneumonia. No PE. Previous lung mass noted. Patient is hospitalized for further management. Allergies No Known Allergies Allergy (Verified 03/07/22 18:33) Home Medications: Buprenorphine/Nalox 0.5 film SL TID 03/07/22 Megestrol [Megace*] 40 mg PO BID 03/07/22 Midodrine HCl [Proamatine*] 5 mg PO BID 03/07/22 Quetiapine [Seroquel*] 75 mg PO BEDTIME 03/07/22 Albuterol Neb [Proventil 0.083% Neb Soln] 2.5 mg NEB [id number] #60 amp 03/10/22 Ipratropium Neb [Atrovent*] 0.5 mg NEB [id number] #60 amp 03/10/22 Nebulizer Accessories [Aeroneb Go] 1 each MC DAILY #1 03/10/22 Nebulizer [Aeroneb Go Nebulizer] 1 each MC DAILY #1 03/10/22 Oxycodone HCl/Acetaminophen [Percocet 5-325 mg Tablet] 1 each PO Q12H #30 03/10/22 levoFLOXacin [Levaquin*] 750 mg PO Q24H #7 tab 03/10/22 predniSONE [Prednisone*] 20 mg PO BID #20 tab 03/10/22 - Past Medical/Surgical History -: Chronic pain -: Anorexia -: COPD -: History of lung cancer - Family History Sister -: Cancer - Social History Alcohol use: No CD- Drugs: No Caffeine use: No Review of Systems Other: Except as documented, all other systems reviewed and negative. Physical Examination - Physical Exam General: Alert, Mild distress HEENT: Mucous membr. moist/pink, Sclerae nonicteric Neck: Supple, JVD not distended Respiratory: Diminished, Expiratory wheezes (Mild expiratory wheezes bilaterally), Other (No crackles) Cardiovascular: No edema, Regular rate/rhythm, Normal S1 S2, No murmurs Gastrointestinal: Normal bowel sounds, Soft and benign, No tenderness Musculoskeletal: No swelling, No tenderness Integumentary: No rashes, No erythema, No cyanosis Neurological: Normal speech, Normal strength at 5/5 x4 extr, Cranial nerves 3-12 intact Lymphatics: No axilla or inguinal lymphadenopathy - Studies Laboratory Data (last 24 hrs) 03/23/22 12:08: Sodium 140, Potassium 3.3 L, BUN 12, Creatinine 0.65, Glucose 124 H, Total Bilirubin 0.5, AST 7 L, ALT 14, Alkaline Phosphatase 61 03/23/22 11:34: PT 12.3, INR 1.12, APTT 21.1 L 03/23/22 11:34: WBC 18.70 H, Hgb 11.9 L, Hct 35.5 L, Plt Count 505 H Microbiology Data (last 24 hrs): 03/23/22 11:38 Nasopharnyx Influenza Type A Antigen Screen - Final 03/23/22 11:38 Nasopharnyx Influenza Type B Antigen Screen - Final Assessment and Plan - Problems (Diagnosis) (1) COPD exacerbation Current Visit: Yes Status: Acute (2) History of lung cancer Current Visit: Yes Status: Acute (3) Pneumonia Current Visit: No Status: Acute (4) Sepsis Current Visit: No Status: Acute - Plan Admit patient to the medical floor. He meets criteria for sepsis with leukocytosis and tachycardia. Lactate is normal. I suspect leukocytosis is steroid-induced since patient was still taking the prednisone taper prescribed from previous admission. Start IV Levaquin. IV steroid Scheduled bronchodilators Chest physiotherapy Follow cultures. Consult to pulmonary. Monitor CBC to follow leukocytosis. Monitor and optimize electrolytes. - Advance Directives Does patient have a Living Will: No Does patient have a Durable POA for Healthcare: No
[2022-03-23] MEDS: Levofloxacin 750mg IV 750 MG/150 ML BAG IV SCH (16:13)
[2022-03-23] MEDS ORDERED: ONDANSETRON 4 MG/2 ML VIAL IV PRN (16:13)
[2022-03-23] MEDS ORDERED: ACETAMINOPHEN 500 MG TAB PO PRN (16:13)
[2022-03-23 16:21] VITALS: BMI 17.6
[2022-03-23] MEDS ORDERED: Levofloxacin 750mg IV 750 MG/150 ML BAG IV ONE (17:10)
[2022-03-23] MEDS ORDERED: METHYLPREDNISOLONE 40 MG INJ ONE ×2 (17:10→20:23)
[2022-03-23] MEDS: METHYLPREDNISOLONE 40 MG INJ IV SCH (17:11)
[2022-03-23] MEDS ORDERED: ALBUTEROL 2.5 MG/3 ML NEB SOL ONE (19:24)
[2022-03-23] MEDS ORDERED: IPRATROPIUM BROM 0.5MG/2.5ML ONE (19:24)
[2022-03-23] MEDS ORDERED: HYDROMORPHONE HCL 0.5 MG/0.5 ML INJ IV PRN (19:43)
[2022-03-23] MEDS: ALBUTEROL 2.5 MG/3 ML NEB SOL NEB SCH (20:00)
[2022-03-23] MEDS: ALBUMIN HUM 5% 500 ML IV SCH (20:00)
[2022-03-23] MEDS: IPRATROPIUM BROM 0.5MG/2.5ML NEB SCH (20:00)
[2022-03-23] MEDS ORDERED: ALBUMIN HUMAN 25% 50 ML IV ONE (20:21)
[2022-03-23] MEDS ORDERED: HYDROMORPHONE HCL 0.5 MG/0.5 ML INJ ONE (20:23)
[2022-03-23] MEDS: QUETIAPINE 100MG TAB PO SCH (21:00)
[2022-03-24] MEDS ORDERED: ALBUTEROL 2.5 MG/3 ML NEB SOL ONE ×3 (01:09→14:04)
[2022-03-24] MEDS ORDERED: IPRATROPIUM BROM 0.5MG/2.5ML ONE ×3 (01:09→14:04)
[2022-03-24] MEDS: ALBUTEROL 2.5 MG/3 ML NEB SOL NEB SCH ×4 (01:37→20:55)
[2022-03-24] MEDS: IPRATROPIUM BROM 0.5MG/2.5ML NEB SCH ×4 (01:37→20:55)
[2022-03-24] MEDS ORDERED: ALBUMIN HUMAN 25% 100 ML IV ONE (03:30)
[2022-03-24 03:52] LABS: Absolute Lymphocytes (CBC) 0.4 K/uL (0.7-4.9); Lymphocytes % 4.6 % (15.3-44.8); MPV 6.9 fL (7.6-11.3); RBC Red Blood Cell Count 3.29 M/uL (4.33-5.43)
[2022-03-24 04:00] LABS: Magnesium 1.9 mg/dL (1.8-2.4); Potassium 3.4 mmol/L (3.5-5.1)
[2022-03-24] MEDS ORDERED: NA CHLORIDE 0.9% 250 ML ONE (04:08)
[2022-03-24] MEDS ORDERED: ALBUMIN HUMAN 25% 50 ML IV ONE (04:09)
[2022-03-24] MEDS ORDERED: METHYLPREDNISOLONE 40 MG INJ ONE ×3 (04:10→13:05)
[2022-03-24 04:13] LABS: Platelet Estimate ADEQ; Platelets, Giant PRESENT
[2022-03-24 04:14] LABS: Blood Morphology Comment NOT SEEN (NOT SEEN)
[2022-03-24] MEDS: METHYLPREDNISOLONE 40 MG INJ IV SCH ×4 (06:00→17:08)
[2022-03-24] MEDS ORDERED: ENOXAPARIN 40 MG/0.4 ML SQ ONE (07:55)
[2022-03-24] MEDS: ENOXAPARIN 40 MG/0.4 ML SQ SCH (08:49)
[2022-03-24] MEDS: MIDODRINE HCL 5 MG TABLET PO SCH ×2 (08:49→20:27)
[2022-03-24] MEDS: SUCRALFATE 1GM/10ML UCUP PO SCH ×3 (11:30→20:30)
[2022-03-24] MEDS ORDERED: PNEUMOCOCCAL VACCINE 0.5 ML IMVAC ONE (13:00)
--- NOTE | 2022-03-24 15:19 | P.PN ---
Subjective Date of Service: 03/24/22 Chief Complaint: Shortness of breath and coughing Patient is complaining of persistent cough. He is saturating 99% on 2 L oxygen by nasal cannula. He also reports frequent heartburn. Nursing staff report patient has been eating a lot of candy and chips since admission. Blood sugar up to 315 earlier this morning. Physical Examination - Vital Signs Temperature: 98.3 F Blood Pressure: 97/53 Pulse: 112 Respirations: 19 Pulse Ox (%): 97 - Studies Microbiology Data (last 24 hrs): 03/23/22 11:38 Nasopharnyx Influenza Type A Antigen Screen - Final 03/23/22 11:38 Nasopharnyx Influenza Type B Antigen Screen - Final Assessment And Plan - Current Problems (Diagnosis) (1) COPD exacerbation Current Visit: Yes Status: Acute (2) History of lung cancer Current Visit: Yes Status: Acute (3) Pneumonia Current Visit: No Status: Acute (4) Sepsis Current Visit: No Status: Acute - Plan Physical Exam General: Alert, NAD Neck: JVD not distended Respiratory: Diminished, Mild expiratory wheezes bilaterally, No crackles. Cardiovascular: No edema, Regular rate/rhythm, Normal S1 S2, No murmurs Gastrointestinal: Normal bowel sounds, Soft and benign, No tenderness Musculoskeletal: No swelling. Integumentary: No rashes, No erythema, No cyanosis Neurological: No focal motor deficit. Plan: Leukocytosis resolved. Patient's symptoms most likely secondary to COPD exacerbation. Possible pneumonia Continue IV Levaquin. Continue IV steroid Scheduled bronchodilators Chest physiotherapy Urine culture: Mixed growth. Blood culture: No growth to date Pulmonary consulted. Antacids, PPI for GERD. Fingerstick glucose monitoring. Insulin sliding scale. Patient advised to cut down on sugar intake.
[2022-03-24] MEDS ORDERED: GLUCAGON 1 MG/VIAL IM PRN (15:21)
[2022-03-24] MEDS ORDERED: D50W 25 GM/50 ML SYRINGE IV PRN (15:21)
[2022-03-24] MEDS ORDERED: POTASSIUM PHOS IN 0.9 % NACL 15 MMOL/250 ML BAG IV ONE (17:00)
[2022-03-24] MEDS: INSULIN -REGULAR HUMAN 50 UNIT/0.5 ML ML SQ SCH ×2 (17:06→21:35)
[2022-03-24] MEDS: Levofloxacin 750mg IV 750 MG/150 ML BAG IV SCH (17:09)
[2022-03-24] MEDS: QUETIAPINE 100MG TAB PO SCH (20:27)
[2022-03-24] MEDS: ALBUMIN HUM 5% 500 ML IV SCH (20:28)
[2022-03-25] MEDS: METHYLPREDNISOLONE 40 MG INJ IV SCH ×3 (00:56→12:00)
[2022-03-25] MEDS: IPRATROPIUM BROM 0.5MG/2.5ML NEB SCH ×4 (02:10→19:40)
[2022-03-25] MEDS: ALBUTEROL 2.5 MG/3 ML NEB SOL NEB SCH ×4 (02:10→19:40)
[2022-03-25 06:10] LABS: Magnesium 2.2 mg/dL (1.8-2.4); Phosphorus 1.6 mg/dL (2.5-4.9); Potassium 3.5 mmol/L (3.5-5.1)
[2022-03-25] MEDS: PANTOPRAZOLE 40MG TABLET PO SCH (06:24)
[2022-03-25] MEDS: HYDROCODONE/APAP 5/325 MG TAB PO PRN (06:28)
[2022-03-25] MEDS: MIDODRINE HCL 5 MG TABLET PO SCH ×2 (08:41→20:36)
[2022-03-25] MEDS: POTASS/SODIUM PHOSPHATE 1 PKT POWD.PACK PO SCH ×3 (08:41→12:49)
[2022-03-25] MEDS: ENOXAPARIN 40 MG/0.4 ML SQ SCH (08:41)
[2022-03-25] MEDS: INSULIN -REGULAR HUMAN 50 UNIT/0.5 ML ML SQ SCH ×4 (08:42→20:36)
[2022-03-25] MEDS: SUCRALFATE 1GM/10ML UCUP PO SCH ×4 (08:42→20:41)
[2022-03-25] MEDS ORDERED: POTASS/SODIUM PHOSPHATE 1 PKT POWD.PACK PO ONE (09:00)
[2022-03-25] MEDS ORDERED: POTASSIUM CL SA 10 MEQ TAB PO ONE (09:00)
--- NOTE | 2022-03-25 12:34 | P.CNS ---
Date of Consult: 03/25/22 Reason for Consult: Pneumonia Chief Complaint: Shortness of breath and coughing History of Present Illness: Patient is 66 years of age with a history of lung cancer s/p treatment chemoradiation history of COVID-pneumonia admitted with complaining of cough congestion admitted with a left lower lobe pneumonia. History of COPD Allergies No Known Allergies Allergy (Verified 03/07/22 18:33) Home Medications: Buprenorphine/Nalox 0.5 film SL TID 03/07/22 Megestrol [Megace*] 40 mg PO BID 03/07/22 Midodrine HCl [Proamatine*] 5 mg PO BID 03/07/22 Quetiapine [Seroquel*] 75 mg PO BEDTIME 03/07/22 Albuterol Neb [Proventil 0.083% Neb Soln] 2.5 mg NEB [id number] #60 amp 03/10/22 Ipratropium Neb [Atrovent*] 0.5 mg NEB [id number] #60 amp 03/10/22 Nebulizer Accessories [Aeroneb Go] 1 each MC DAILY #1 03/10/22 Nebulizer [Aeroneb Go Nebulizer] 1 each MC DAILY #1 03/10/22 - Past Medical/Surgical History -: Chronic pain -: Anorexia -: COPD -: History of lung cancer - Family History Sister Medical History: Cancer - Social History Smoking Status: Current every day smoker Alcohol use: No CD- Drugs: No Caffeine use: No Review of Systems 10-point ROS is otherwise unremarkable General: Weakness Respiratory: Cough, Shortness of Breath Physical Examination Temp Pulse Resp BP Pulse Ox 98.1 F 93 H 20 104/56 L 90 L 03/25/22 08:00 03/25/22 08:00 03/25/22 08:00 03/25/22 08:00 03/25/22 08:00 General: Alert, Oriented x3 Respiratory: Crackles/rales, Expiratory wheezes Cardiovascular: No edema, Regular rate/rhythm, Normal S1 S2 Gastrointestinal: Normal bowel sounds, Soft and benign - Problems (1) Pneumonia Current Visit: No Status: Acute Plan: Patient is 66 years of age with a history of COPD lung cancer. With left lower lobe pneumonia chest congestion does take trilogy at home for COPD patient's white count was elevated he is at risk for distant organisms agree with IV levofloxacin p.o. doxycycline reduce dose of Solu-Medrol oxygenation satisfactory doxycycline and over to p.o. levofloxacin tomorrow patient complains of severe heartburn start on pantoprazole Qualifiers: Pneumonia type: due to unspecified organism Laterality: left
[2022-03-25] MEDS: levoFLOXacin 750 MG TAB PO SCH (13:08)
[2022-03-25] MEDS: ARFORMOTEROL TARTRATE 15 MCG/2 ML VIAL.NEB NEB SCH ×2 (13:35→19:40)
--- NOTE | 2022-03-25 13:56 | P.PN ---
Subjective Date of Service: 03/25/22 Chief Complaint: Shortness of breath and coughing Patient is complaining of cough. He is also complaining of frequent heartburn. He is currently tolerating room air. Physical Examination - Vital Signs Temperature: 97.8 F Blood Pressure: 113/57 Pulse: 100 Respirations: 18 Pulse Ox (%): 99 - Studies Microbiology Data (last 24 hrs): 03/23/22 14:22 Clean Catch Urine [place] Count - Final <10,000 CFU/ML. 03/23/22 14:22 Clean Catch Urine - Final MIXED MICHEAL. Assessment And Plan - Current Problems (Diagnosis) (1) COPD exacerbation Current Visit: Yes Status: Acute (2) History of lung cancer Current Visit: Yes Status: Acute (3) Pneumonia Current Visit: No Status: Acute Qualifiers: Pneumonia type: due to unspecified organism Laterality: left (4) Sepsis Current Visit: No Status: Acute - Plan Physical Exam General: Alert, NAD Neck: JVD not distended Respiratory: Diminished, Mild expiratory wheezes bilaterally, No crackles. Cardiovascular: No edema, Regular rate/rhythm, Normal S1 S2, No murmurs Gastrointestinal: Normal bowel sounds, Soft and benign, No tenderness Musculoskeletal: No swelling. Integumentary: No rashes, No erythema, No cyanosis Neurological: No focal motor deficit. Plan: Leukocytosis resolved. Patient's symptoms most likely secondary to COPD exacerbation. Possible pneumonia. Pulmonary input appreciated. IV Levaquin transition to oral Levaquin P.o. prednisone per pulmonary Scheduled bronchodilators Chest physiotherapy Urine culture: Mixed growth. Blood culture: No growth to date Antacids, PPI for GERD. Fingerstick glucose monitoring. Insulin sliding scale. Possible discharge in a.m.
[2022-03-25] MEDS ORDERED: METHYLPREDNISOLONE 40 MG INJ IV SCH (17:00)
[2022-03-25] MEDS: QUETIAPINE 100MG TAB PO SCH (20:36)
[2022-03-25] MEDS: predniSONE 20 MG TAB PO SCH (20:36)
[2022-03-25] MEDS: DOXYCYCLINE 100 MG CAP PO SCH (20:36)
[2022-03-26] MEDS: ALBUTEROL 2.5 MG/3 ML NEB SOL NEB SCH ×4 (01:50→19:55)
[2022-03-26] MEDS: IPRATROPIUM BROM 0.5MG/2.5ML NEB SCH ×4 (01:50→19:55)
[2022-03-26 06:16] LABS: Absolute Lymphocytes (CBC) 1.1 K/uL (0.7-4.9); Hematocrit 27.3 % (39.6-49.0); MCV 87.7 fL (80-100); MPV 6.8 fL (7.6-11.3); RBC Red Blood Cell Count 3.11 M/uL (4.33-5.43)
[2022-03-26 06:35] LABS: Phosphorus 1.7 mg/dL (2.5-4.9); Potassium 3.5 mmol/L (3.5-5.1)
[2022-03-26] MEDS: SUCRALFATE 1GM/10ML UCUP PO SCH (07:30)
[2022-03-26] MEDS: INSULIN -REGULAR HUMAN 50 UNIT/0.5 ML ML SQ SCH ×4 (07:30→21:00)
[2022-03-26] MEDS ORDERED: POTASSIUM CL SA 10 MEQ TAB PO ONE (09:00)
[2022-03-26] MEDS: POTASS/SODIUM PHOSPHATE 1 PKT POWD.PACK PO SCH ×2 (09:46→10:54)
[2022-03-26] MEDS: predniSONE 20 MG TAB PO SCH ×2 (09:46→21:12)
[2022-03-26] MEDS: PANTOPRAZOLE 40MG TABLET PO SCH (09:46)
[2022-03-26] MEDS: levoFLOXacin 750 MG TAB PO SCH (09:47)
[2022-03-26] MEDS: SUCRALFATE 1 GM TABLET PO SCH ×4 (09:47→21:12)
[2022-03-26] MEDS: DOXYCYCLINE 100 MG CAP PO SCH ×2 (09:47→21:11)
[2022-03-26] MEDS: ENOXAPARIN 40 MG/0.4 ML SQ SCH (09:47)
[2022-03-26] MEDS: MIDODRINE HCL 5 MG TABLET PO SCH ×2 (09:47→21:11)
--- NOTE | 2022-03-26 11:52 | RAD REPORT ---
EXAM DESCRIPTION: RAD - Chest Single View - 03/26/2022 11:39 am CLINICAL HISTORY: f/u COMPARISON: Chest Single View dated 03/23/2022; Chest Single View dated 03/09/2022; Chest Single View dated 03/07/2022; Chest For Pe Angio dated 03/23/2022 FINDINGS: Lines: None. Lungs: Right upper lobe scarring and architectural distortion. Background of emphysema. Patchy nodula rity in the left lung base has marginally improved with less prominent nodularity. Pleural: No significant pleural effusions or pneumothorax. Cardiac: The heart size is within normal limits. Mediastinum: Within normal limits. Bones: No acute fractures. Other: None IMPRESSION: Marginal improvement in left lower lobe nodularity. Findings in the right upper lobe are likely chronic. Background of emphysema.
--- NOTE | 2022-03-26 13:36 | P.PN ---
Date of Service: 03/26/22 Subjective: Feels about the same. Continues with productive cough - worsened after meals Feels like he "is aspirating", reports history of aspiration ~1-2 yrs ago at [facility] ([place]) heartburn continues as well, no significant improvemenet ROS: 10 point ROS as noted above, otherwise negative Physical exam GEN: Alert, oriented HEENT: Normal conjunctiva, sclera anicteric CV: Regular rate and rhythm, no edema Pulm: bilateral, diffuse wheeze; +Cough ABD: Soft, nontender, nondistended Neuro: Normal speech, normal affect Problem List acute on chronic COPD exacerbation sepsis secondary to pneumonia h/o lung cancer chronic pain Heartburn suspect symptoms mostly related to COPD exacerbation with possible pneumonia superimposed pulm consulted continue inhalers/nebs, steroids transitioned to PO levaquin, doxy chest physiotherapy blood culture - no growth. Urine: mixed Heartburn ?aspiration patient taking tums and pantoprazole at home continue pantoprazole, add carafate feels like he is aspirating - coughs more after eating reports history ~1-2 yrs ago had aspiration - at [facility] speech consulted 03/26, did well at bedside eval, recommended GI consult esophogram ordered check CXR VTE: lovenox code: full Dispo: home, 1-2 days Time Spent Managing Pts Care (In Minutes): 35
[2022-03-26 14:01] LABS: Potassium 3.8 mmol/L (3.5-5.1)
[2022-03-26] MEDS: ARFORMOTEROL TARTRATE 15 MCG/2 ML VIAL.NEB NEB SCH ×2 (14:41→19:55)
--- NOTE | 2022-03-26 17:31 | EKG ---
Test Date: 2022-03-23 Test Time: 12:15:10 Postal Worker: MEASUREMENT RESULTS: Intervals: Rate: 92 FL: 122 QRSD: 70 QT: 366 QTc: 452 [place]: P: 39 FL: 122 QRS: 38 T: 44 INTERPRETIVE STATEMENTS: Normal sinus rhythm Normal ECG Compared to ECG 03/07/2022 11:04:38 Sinus tachycardia no longer present Electronically Signed On 03-26-22 17:28:30 CDT by Laryr Aly
[2022-03-26] MEDS: QUETIAPINE 100MG TAB PO SCH (21:12)
[2022-03-27] MEDS: ALBUTEROL 2.5 MG/3 ML NEB SOL NEB SCH ×4 (01:35→20:35)
[2022-03-27] MEDS: IPRATROPIUM BROM 0.5MG/2.5ML NEB SCH ×4 (01:35→20:35)
[2022-03-27 06:17] LABS: Hematocrit 30.2 % (39.6-49.0); MCV 87.1 fL (80-100); RBC Red Blood Cell Count 3.47 M/uL (4.33-5.43)
[2022-03-27 06:29] LABS: Magnesium 2.1 mg/dL (1.8-2.4); Phosphorus 2.3 mg/dL (2.5-4.9)
[2022-03-27] MEDS: PANTOPRAZOLE 40MG TABLET PO SCH (06:29)
[2022-03-27] MEDS: INSULIN -REGULAR HUMAN 50 UNIT/0.5 ML ML SQ SCH ×4 (07:30→20:11)
[2022-03-27] MEDS: POTASS/SODIUM PHOSPHATE 1 PKT POWD.PACK PO SCH ×3 (07:50→12:01)
[2022-03-27] MEDS: predniSONE 20 MG TAB PO SCH ×2 (07:51→20:11)
[2022-03-27] MEDS: ENOXAPARIN 40 MG/0.4 ML SQ SCH (07:51)
[2022-03-27] MEDS: levoFLOXacin 750 MG TAB PO SCH (07:51)
[2022-03-27] MEDS: DOXYCYCLINE 100 MG CAP PO SCH ×2 (07:51→20:11)
[2022-03-27] MEDS: MIDODRINE HCL 5 MG TABLET PO SCH ×2 (07:51→20:11)
[2022-03-27] MEDS: SUCRALFATE 1 GM TABLET PO SCH ×4 (07:51→20:11)
[2022-03-27] MEDS: ARFORMOTEROL TARTRATE 15 MCG/2 ML VIAL.NEB NEB SCH ×2 (08:15→20:35)
--- NOTE | 2022-03-27 12:23 | P.PN ---
Subjective Date of Service: 03/27/22 Chief Complaint: COPD exacerbation Patient is still complaining of chest congestion and a cough Review of Systems General: Weakness Respiratory: Cough, Shortness of Breath Physical Examination - Vital Signs Temperature: 98.7 F Blood Pressure: 138/75 Pulse: 86 Respirations: 20 Pulse Ox (%): 94 - Physical Exam General: Alert, Oriented x3, Mild distress Respiratory: Diminished Cardiovascular: No edema, Regular rate/rhythm Assessment And Plan - Current Problems (Diagnosis) (1) Pneumonia Current Visit: No Status: Acute Plan: Patient states that is not improving still has some cough congestion shortness of breath his cultures are so far negative White count is declining plan to discharge tomorrow on low-dose prednisone 10 mg twice a day with levofloxacin and doxycycline chest x-ray shows some interstitial changes he has a history of lung cancer room air oxygenation is satisfactory patient will not qualify for home O2 Qualifiers: Pneumonia type: due to unspecified organism Laterality: left
--- NOTE | 2022-03-27 12:47 | RAD REPORT ---
EXAM DESCRIPTION: RAD - Esophagram Only - 03/27/2022 11:55 am CLINICAL HISTORY: concern for aspiration Shortness of breath COMPARISON: Abdomen Pelvis W Contrast dated 03/07/2022; Chest For Pe Angio dated 03/23/2022 FINDINGS: A limited barium esophagram was performed. Tertiary contractions were noted throughout the esophagus. The patient aspirated during the examination into the left lung, at which point the exami nation was terminated. Total fluoroscopy time: 32 seconds Number of images acquired: 5 IMPRESSION: Aspiration was noted into the left lung during the study.
[2022-03-27] MEDS: NYSTATIN 500,000 UNIT/5 ML UDC PO SCH ×3 (16:19→20:11)
--- NOTE | 2022-03-27 16:39 | P.PN ---
Date of Service: 03/27/22 Subjective: Continues with productive cough - worsened after meals intermittent pain in chest, feels like it chokes him at times carafate helped for ~30min ROS: 10 point ROS as noted above, otherwise negative Physical exam GEN: Alert, oriented, intermittent discomfort, mild hoarse voice HEENT: Normal conjunctiva, +white plaques in oropharynx / b/l cheeks CV: Regular rate and rhythm, no edema Pulm: bilateral, diffuse wheeze; +Cough ABD: Soft, nontender, nondistended Neuro: Normal speech, normal affect Problem List acute on chronic COPD exacerbation sepsis secondary to pneumonia, aspiration aspiration oropharyngeal candidiasis h/o lung cancer chronic pain Heartburn COPD exacerbation with pneumonia pulm consulted continue inhalers/nebs, steroids transitioned to PO levaquin, doxy chest physiotherapy patient reported feeling as though he was aspirating, and reported h/o aspiration blood culture - no growth. Urine: mixed Heartburn ?aspiration patient taking tums and pantoprazole at home continue pantoprazole, added carafate with slight relief - only ~30min feels like he is aspirating - coughs more after eating reports history ~1-2 yrs ago had aspiration - at [facility] speech consulted 03/26, did well at bedside eval, recommended GI consult esophogram ordered Esophagram 03/27: +aspiration into left lung patient with what appears to be oropharyngeal candidiasis, start antifungal swish/swallow, may have deeper involvement and may need diflucan ENT consulted, plan to eval vocal cords/ possible scope VTE: lovenox code: full Dispo: home, 1-2 days Time Spent Managing Pts Care (In Minutes): 35
[2022-03-27] MEDS: QUETIAPINE 100MG TAB PO SCH (20:11)
[2022-03-28] MEDS: IPRATROPIUM BROM 0.5MG/2.5ML NEB SCH ×4 (01:15→20:00)
[2022-03-28] MEDS: ALBUTEROL 2.5 MG/3 ML NEB SOL NEB SCH ×4 (01:15→20:00)
[2022-03-28] MEDS: PANTOPRAZOLE 40MG TABLET PO SCH (05:45)
[2022-03-28 05:50] LABS: Hematocrit 30.6 % (39.6-49.0); MCV 86.6 fL (80-100); MPV 6.5 fL (7.6-11.3); RBC Red Blood Cell Count 3.53 M/uL (4.33-5.43)
--- NOTE | 2022-03-28 06:03 | P.PN ---
Date of Service: 03/28/22 Subjective: no significant change ongoing pain, occasionally feels choked up from it no new symptoms/concerns ROS: 10 point ROS as noted above, otherwise negative Physical exam GEN: Alert, oriented, intermittent discomfort, mild hoarse voice HEENT: Normal conjunctiva, +white plaques in oropharynx / b/l cheeks CV: Regular rate and rhythm, no edema Pulm: nonlabored respirations on room air; +Cough ABD: Soft, nontender, nondistended Neuro: Normal speech, normal affect Problem List acute on chronic COPD exacerbation sepsis secondary to pneumonia, aspiration aspiration oropharyngeal candidiasis, suspected esophageal involvement h/o lung cancer chronic pain Heartburn COPD exacerbation with pneumonia pulm consulted continue inhalers/nebs, steroids de-escalated antibiotics chest physiotherapy patient reported feeling as though he was aspirating, and reported h/o aspiration blood culture - no growth. Urine: mixed Heartburn aspiration oropharyngeal candidiasis; esophageal and laryngeal involvement patient taking tums and pantoprazole at home continue pantoprazole, added carafate with slight relief - only ~30min reports history ~1-2 yrs ago had aspiration - at [facility] speech and GI consulted; Esophgram noted aspiration to left lung ENT consulted, noted candidiasis down into larynx / vocal cords nystatin changed to diflucan given extensive involvement VTE: lovenox code: full Dispo: home, 1-2 days, pending improvement Time Spent Managing Pts Care (In Minutes): 35
[2022-03-28 06:08] LABS: Phosphorus 2.7 mg/dL (2.5-4.9); Potassium 4.2 mmol/L (3.5-5.1)
[2022-03-28] MEDS: INSULIN -REGULAR HUMAN 50 UNIT/0.5 ML ML SQ SCH ×4 (07:30→20:09)
[2022-03-28] MEDS: ARFORMOTEROL TARTRATE 15 MCG/2 ML VIAL.NEB NEB SCH ×2 (08:15→20:00)
--- NOTE | 2022-03-28 08:27 | EKG ---
Test Date: 2022-03-28 Test Time: 07:08:55 Director [employer]: BARBARA MEASUREMENT RESULTS: Intervals: Rate: 78 [place]: 118 QRSD: 72 QT: 382 QTc: 435 [place]: P: 37 WA: 118 QRS: 32 T: 59 INTERPRETIVE STATEMENTS: Normal sinus rhythm Normal ECG Compared to ECG 03/23/2022 12:15:10 No significant changes Electronically Signed On 03-28-22 08:26:26 CDT by Grady Joseph
[2022-03-28] MEDS ORDERED: DEXTROSE 10%-WATER 125 ML IV PRN (08:56)
[2022-03-28] MEDS: SUCRALFATE 1 GM TABLET PO SCH ×4 (09:27→20:08)
[2022-03-28] MEDS: predniSONE 20 MG TAB PO SCH (09:27)
[2022-03-28] MEDS: NYSTATIN 500,000 UNIT/5 ML UDC PO SCH ×4 (09:27→20:08)
[2022-03-28] MEDS: FLUCONAZOLE 100 MG TAB PO SCH (09:27)
[2022-03-28] MEDS: RIVAROXABAN 10 MG TABLET PO SCH (09:28)
--- NOTE | 2022-03-28 12:41 | P.PN ---
Subjective Date of Service: 03/28/22 Chief Complaint: COPD exacerbation, possible fungus upper airway infection No change in patient's condition evaluated by ENT he may have an upper airway Tati infection patient is on Diflucan aspiration was noted on barium swallow Review of Systems General: Weakness Respiratory: Cough, Shortness of Breath Physical Examination - Vital Signs Temperature: 98.4 F Blood Pressure: 140/69 Pulse: 80 Respirations: 18 Pulse Ox (%): 91 - Physical Exam General: Alert, Oriented x3, Mild distress Respiratory: Expiratory wheezes Cardiovascular: No edema, Regular rate/rhythm, Normal S1 S2 - Studies Microbiology Data (last 24 hrs): 03/23/22 12:08 Blood - Blood Aerobic Blood Culture - Final No growth in 5 days. 03/23/22 12:08 Blood - Blood Anaerobic Blood Culture - Final No growth in 5 days. 03/23/22 11:34 Blood - Blood Aerobic Blood Culture - Final No growth in 5 days. 03/23/22 11:34 Blood - Blood Anaerobic Blood Culture - Final No growth in 5 days. Assessment And Plan - Current Problems (Diagnosis) (1) Tati esophagitis Current Visit: Yes Status: Acute Plan: Patient has been complaining of dysphagia recent ENT evaluation revealed upper airway for Tati infection. Patient is on Diflucan have added nystatin. X- ray shows some interstitial changes will DC Levaquin and doxycycline white count is now normal vital signs stable oxygenation satisfactory will DC steroids for now plan to DC the patient on either Stiolto or Anoro and inhaler without i nhaled steroids
--- NOTE | 2022-03-28 12:49 | P.PN ---
Date of Service: 03/27/22 ENT Consultation Please see dictated H&P Impression: 1. Severe Laryngeal Candidiasis-- airway is secure and patent. 2. Oropharyngeal and Esophageal Dysphagia-- mild/moderate Plan: 1. Dr. Metz has already prescribed Nystatin swish/swallow. Will continue as prescribed. Total treatment duration needs to be 2-3 weeks. Outpatient followup needed for repeat scope. 2. Will fax swallowing exercises to nursing staff for patient to perform as instructed. 3. Soft or pureed diet recommended until candidiasis is resolved. 4. Swallow study needed if dysphagia not improved or resolved after treatment. Thank you, Dr. Metz, for this interesting consultation and great medical management.
--- NOTE | 2022-03-28 18:15 | CON ---
Date of Consultation: 03/27/2022 Chief Complaint: Difficulty swallowing and worsened cough. History Of Present Illness: The patient was admitted to the hospital for pneumonia recently and has been treated with antibiotics and steroids. His admission date was 03/23/2022, but since this time he has had increased difficulty in swallowing with questionable aspiration. I asked him if he had this problem before and he says he has had since he has had radiation, but has noticed significant worsening within the past 1-2 weeks. He states that when he swallows it is a severe burning sensation that he feels in his throat and down his neck and even into his chest. When I walked into his room, he was actually eating pudding and I noticed that he could definitely swallow that, but had more difficulty with liquids when I asked him to swallow his water. There was mild regurgitation of the water and he also had some belching when I was there at bedside. Currently, he rates his sore throat as moderate and his swallowing difficulties as [id number] with frequent coughing. He denies hemoptysis or hematemesis. He has lost a lot of weight since being treated for lung cancer with chemo and radiation and he did have a PEG tube at one point to help with nutrition, but he is stating that he adamantly refuses to have another PEG tube placed and would rather do swallowing therapy and be medically treated if possible. He was offered swallowing exercises in the past and states that he is very motivated to do these exercises and he felt like it helped significantly with his ability to swallow. He has no other ENT complaints today. Past Medical History And Surgical History: Chronic pain, anorexia, COPD, lung cancer treated with chemo and radiation. Allergies: NO KNOWN DRUG ALLERGIES. Home Medications: Include prednisone, levofloxacin, oxycodone, Aeroneb nebulizer treatments, Atrovent nebulizer treatments, albuterol nebulizer treatments, quetiapine, midodrine Social History: Denies alcohol, tobacco, or illicit drugs. Review of Systems: Ears: Bilateral ear canal itching, but denies drainage, pain. Positive for chronic hearing loss, but denies tinnitus. Nose: Denies rhinorrhea, postnasal drip, nasal congestion. Throat: [id number] sore throat with difficulty swallowing and painful swallowing. Positive for dry mouth. Neck: Negative for neck mass, swelling, pain. Physical Examination: Vital Signs: Stable. General: He is alert and in no acute distress. Cachectic. Head: Atraumatic, normocephalic. Eyes: PERRLA/EOMI. Ears: Bilateral moderate canal cerumen; however, tympanic membranes are visualized. Mild diffuse scarring of the drum, but ossicles are intact. No evidence of middle ear effusion. Nose: Midline septum. Moist nasal mucosa. Cavities are patent. Throat: Diffuse oropharyngeal erythema, edema and fungal/Tati plaques noted throughout the oropharynx and oral cavity. Dry oral mucosa. Turner palate 3/4 and uvula is swollen. Neck: Supple. Trachea midline. No lymphadenopathy or thyromegaly palpated. After obtaining verbal consent, the patient was placed into a sniffing position and a lubricated flexible laryngoscope was introduced into the right nasal cavity and advanced towards the nasopharynx. Nasopharynx was normal. No erythema, edema or candidiasis visualized. Eustachian tube orifices are patent, no exudate. The scope was then advanced to the level of the larynx. The patient had moderate mucosal irritation/edema/erythema. There were multiple white Tati plaques noted throughout the larynx and hypopharynx. I was able to advance my scope to the level of the subglottis and I could detect plaques on his right true vocal fold and he had moderate edema and erythema of bilateral false vocal folds with sluggish medialization of the vocal cords secondary to edema. The scope was then withdrawn carefully through the nasal cavity. He tolerated the procedure well. Diagnoses: 1. Severe oropharyngeal and laryngeal candidiasis. 2. Oropharyngeal and esophageal dysphagia - [id number]. Recommendations: 1. The patient is already started on nystatin swish and swallow. We will have him continue and will need to be on this in the outpatient setting as recommended treatment is usually 2-3 weeks. 2. Follow up outpatient for flexible laryngoscope exam and further recommendations. 3. Swallowing exercises were faxed over to the nurses station. I would recommend that he continue with the exercises. I do not recommend a PEG tube at this time as I feel that the swelling will improve with antifungal treatment. 4. Consider modified barium swallow study in the outpatient setting if not resolved or significantly improved. Thank you, Dr. Metz for this most interesting consultation and great medical management. JASON/CHELSIE Voice ID: [id number] Report ID: [id number] MTDD
[2022-03-28] MEDS: QUETIAPINE 100MG TAB PO SCH (20:08)
[2022-03-28] MEDS: HYDROCODONE/APAP 5/325 MG TAB PO PRN (20:08)
[2022-03-29] MEDS: IPRATROPIUM BROM 0.5MG/2.5ML NEB SCH ×4 (01:51→20:10)
[2022-03-29] MEDS: ALBUTEROL 2.5 MG/3 ML NEB SOL NEB SCH (01:51)
[2022-03-29] MEDS: PANTOPRAZOLE 40MG TABLET PO SCH (05:58)
--- NOTE | 2022-03-29 06:28 | P.PN ---
Date of Service: 03/29/22 Subjective: Slight improvement Feels the oral lesions have reduced/gone away Still with some chest pain, but slightly improved Tolerating ~50% of his food, did okay with breakfast ROS: 10 point ROS as noted above, otherwise negative Physical exam GEN: Alert, oriented, intermittent discomfort, mild hoarse voice HEENT: Normal conjunctiva, +1-2 white plaques in oropharynx CV: Regular rate and rhythm, no edema Pulm: nonlabored respirations on room air; +Cough ABD: Soft, nontender, nondistended Neuro: Normal speech, normal affect Problem List acute on chronic COPD exacerbation sepsis secondary to pneumonia, aspiration aspiration oropharyngeal candidiasis, suspected esophageal involvement h/o lung cancer chronic pain Heartburn COPD exacerbation with pneumonia pulm consulted continue inhalers/nebs, ok to dc steroids de-escalated antibiotics chest physiotherapy patient reported feeling as though he was aspirating, and reported h/o aspiration blood culture - no growth. Urine: mixed Heartburn aspiration oropharyngeal candidiasis; esophageal and laryngeal involvement patient taking tums and pantoprazole at home continue pantoprazole, added carafate with slight relief - only ~30min reports history ~1-2 yrs ago had aspiration - at [facility] speech and GI consulted; Esophgram noted aspiration to left lung ENT consulted, noted candidiasis down into larynx / vocal cords nystatin changed to diflucan given extensive involvement PT consult VTE: lovenox code: full Dispo: home, anticipate tomorrow if further improved, PT eval Time Spent Managing Pts Care (In Minutes): 35
[2022-03-29] MEDS: MIDODRINE HCL 5 MG TABLET PO SCH ×2 (07:00→17:48)
[2022-03-29] MEDS: INSULIN -REGULAR HUMAN 50 UNIT/0.5 ML ML SQ SCH ×4 (07:30→21:00)
[2022-03-29] MEDS: ARFORMOTEROL TARTRATE 15 MCG/2 ML VIAL.NEB NEB SCH ×2 (08:25→20:10)
[2022-03-29] MEDS: NALOXONE SL SCH ×3 (09:00→20:51)
[2022-03-29] MEDS: BUPRENORPHINE SL SCH ×3 (09:00→20:51)
[2022-03-29] MEDS: SUCRALFATE 1 GM TABLET PO SCH ×4 (09:01→20:47)
[2022-03-29] MEDS: RIVAROXABAN 10 MG TABLET PO SCH (09:01)
[2022-03-29] MEDS: NYSTATIN 500,000 UNIT/5 ML UDC PO SCH ×4 (09:01→20:48)
[2022-03-29] MEDS: FLUCONAZOLE 100 MG TAB PO SCH (09:05)
[2022-03-29] MEDS ORDERED: ALBUTEROL 2.5 MG/3 ML NEB SOL NEB PRN ×2 (09:17→15:00)
--- NOTE | 2022-03-29 09:18 | P.PN ---
Subjective Date of Service: 03/29/22 Chief Complaint: COPD exacerbation, possible fungus upper airway infection Patient states he is still weak has chest congestion is improving swallowing seems to be a little better Review of Systems General: Weakness Respiratory: Shortness of Breath Physical Examination - Vital Signs Temperature: 98.0 F Blood Pressure: 115/70 Pulse: 55 Respirations: 16 Pulse Ox (%): 91 - Physical Exam General: Alert, Oriented x3, Mild distress Respiratory: Clear to auscultation bilaterally, Diminished Cardiovascular: No edema, Regular rate/rhythm - Studies Microbiology Data (last 24 hrs): 03/23/22 12:08 Blood - Blood Aerobic Blood Culture - Final No growth in 5 days. 03/23/22 12:08 Blood - Blood Anaerobic Blood Culture - Final No growth in 5 days. 03/23/22 11:34 Blood - Blood Aerobic Blood Culture - Final No growth in 5 days. 03/23/22 11:34 Blood - Blood Anaerobic Blood Culture - Final No growth in 5 days. Assessment And Plan - Current Problems (Diagnosis) (1) Tati esophagitis Current Visit: Yes Status: Acute Plan: Patient is improving somewhat continue with present therapy with fluconazole and nystatin p.o. steroids avoid inhaled steroids labs reviewed follow-up with me in 2 weeks
[2022-03-29] MEDS: CALCIUM CARBONATE CHEW 500MG TAB PO PRN ×2 (16:18→21:38)
[2022-03-29] MEDS: QUETIAPINE 25 MG TAB PO SCH (20:47)
[2022-03-29] MEDS: ENSURE ENLIVE 237 ML CAN PO SCH (20:48)
[2022-03-30] MEDS: CALCIUM CARBONATE CHEW 500MG TAB PO PRN ×2 (01:00→04:16)
[2022-03-30] MEDS: IPRATROPIUM BROM 0.5MG/2.5ML NEB SCH ×4 (02:00→19:55)
[2022-03-30] MEDS: MIDODRINE HCL 5 MG TABLET PO SCH ×2 (06:21→17:17)
[2022-03-30] MEDS: PANTOPRAZOLE 40MG TABLET PO SCH (06:21)
[2022-03-30 06:37] LABS: Hematocrit 37.7 % (39.6-49.0); MPV 7.2 fL (7.6-11.3); RBC Red Blood Cell Count 4.28 M/uL (4.33-5.43)
--- NOTE | 2022-03-30 06:49 | RAD REPORT ---
EXAM DESCRIPTION: RAD - Chest Single View - 03/30/2022 6:35 am CLINICAL HISTORY: f/u opacities, aspiration left lung COMPARISON: Portable exams March 26, March 23 and March 09 ; CT chest March 23 TECHNIQUE: AP portable chest image was obtained 03/30/2022 6:35 am . FINDINGS: Patient has a baseline of significant fibro emphysematous lung disease. Focal pleural and parenchymal scarring in the right apex radiates to the hilum. Patient's focal interstitial and patchy alveolar infiltrate in the left base is still present. No fur ther improvement since March 26. A new area of interstitial and patchy alveolar opacification has developed in the medial right base. Heart and vasculature are normal. No measurable pleural effusion and no pneumothorax. No acute bony a bnormality seen. No acute aortic findings suspected. IMPRESSION: New small focus of interstitial and patchy alveolar opacification in the medial right ba se. No change to the left lung base infiltrative process since March 26.
[2022-03-30 06:54] LABS: Potassium 3.9 mmol/L (3.5-5.1)
[2022-03-30] MEDS: NA CHLORIDE 0.9% 1,000 ML IV SCH ×2 (07:00→08:42)
[2022-03-30] MEDS: INSULIN -REGULAR HUMAN 50 UNIT/0.5 ML ML SQ SCH ×4 (07:30→21:00)
[2022-03-30] MEDS: ARFORMOTEROL TARTRATE 15 MCG/2 ML VIAL.NEB NEB SCH ×2 (08:15→19:55)
[2022-03-30] MEDS: SUCRALFATE 1 GM TABLET PO SCH (08:42)
[2022-03-30] MEDS: NALOXONE SL SCH ×3 (08:42→21:00)
[2022-03-30] MEDS: BUPRENORPHINE SL SCH ×3 (08:42→21:00)
[2022-03-30] MEDS: RIVAROXABAN 10 MG TABLET PO SCH (08:43)
[2022-03-30] MEDS: FLUCONAZOLE 100 MG TAB PO SCH (08:43)
[2022-03-30] MEDS: ENSURE ENLIVE 237 ML CAN PO SCH (08:43)
[2022-03-30] MEDS: NYSTATIN 500,000 UNIT/5 ML UDC PO SCH (08:43)
[2022-03-30] MEDS ORDERED: SODIUM CHLORIDE 0.9% 10ML INJ IV PRN (09:19)
[2022-03-30] MEDS ORDERED: D5 0.45 NS 1,000 ML IV SCH (10:00)
[2022-03-30] MEDS: AMPICILLIN/SULBACT 3 GM in NA CHLORIDE 0.9% 100 ML IVPB SCH ×3 (10:53→21:14)
[2022-03-30] MEDS: PANTOPRAZOLE 40 MG INJ IVP SCH (10:53)
--- NOTE | 2022-03-30 11:37 | P.PN ---
Subjective Date of Service: 03/30/22 Chief Complaint: COPD exacerbation, possible fungus upper airway infection Patient feels well he is aspirating refused to be n.p.o. food at his bedside his oral thrush is better Review of Systems General: Weakness Respiratory: Cough, Shortness of Breath Physical Examination - Vital Signs Temperature: 97.8 F Blood Pressure: 94/53 Pulse: 98 Respirations: 16 Pulse Ox (%): 92 - Physical Exam General: Alert, Oriented x3 Respiratory: Expiratory wheezes Cardiovascular: No edema, Regular rate/rhythm, Normal S1 S2 Assessment And Plan - Current Problems (Diagnosis) (1) Tati esophagitis Current Visit: Yes Status: Acute Plan: Continue with antifungal therapy (2) Aspiration pneumonia Current Visit: Yes Status: Acute Plan: Possible aspiration pneumonia patient is now on Unasyn White count elevated repeat esophagram speech evaluation agree with PPN Qualifiers: Laterality: right
[2022-03-30] MEDS ORDERED: AMPICILLIN/SULBACT 1.5 GM in NA CHLORIDE 0.9% 100 ML IVPB SCH (12:00)
--- NOTE | 2022-03-30 12:29 | P.PN ---
Date of Service: 03/30/22 Subjective: increased cough more hypoxic patient states he feels about the same ROS: 10 point ROS as noted above, otherwise negative Physical exam GEN: Alert, oriented, intermittent discomfort, mild hoarse voice HEENT: Normal conjunctiva, oral candidiasis improved/nearly resolved CV: Sinus tachycardia, no edema Pulm: non-labored respirations, on 2L NC, +productive cough ABD: Soft, nontender, nondistended Neuro: Normal speech, normal affect Problem List acute on chronic COPD exacerbation sepsis secondary to pneumonia, aspiration oropharyngeal candidiasis, suspected esophageal involvement h/o lung cancer chronic pain Heartburn COPD exacerbation with pneumonia pulm consulted continue inhalers/nebs, dc'd steroids chest physiotherapy patient reported feeling as though he was aspirating, and reported h/o aspiration blood culture - no growth. Urine: mixed Heartburn aspiration oropharyngeal candidiasis; esophageal and laryngeal involvement patient taking tums and pantoprazole at home continue pantoprazole, added carafate with slight relief - only ~30min reports history ~1-2 yrs ago had aspiration - at [facility] speech and GI consulted; Esophagram noted aspiration to left lung ENT consulted, noted candidiasis down into larynx / vocal cords nystatin changed to diflucan given extensive involvement Oral thrush nearly resolved Hypoxia, tachycardia, coughing. Concern he is continuing to aspirate Discussed with patient after the initial esophagram there would be concern for ongoing aspiration, discussed PEG tube, which patient refused, and refused n.p.o., stating he knew what foods he did ok with and would stick with thos patient with new R lung opacity concern for aspiration. start unasyn 03/30, NPO, PPN speech eval friday, repeat esophogram friday VTE: lovenox code: full Dispo: home, 2-3 days Time Spent Managing Pts Care (In Minutes): 35
[2022-03-30] MEDS: AA 4.25 %/D5W/ELECTROLYTES 2,000 ML IV SCH (16:25)
[2022-03-30] MEDS: QUETIAPINE 25 MG TAB PO SCH (21:00)
[2022-03-31] MEDS ORDERED: DIPHENHYDRAMINE 50 MG/ML VIAL IV ONE ×2 (00:36→20:47)
[2022-03-31] MEDS ORDERED: NA CHLORIDE 0.9% 500 ML IV ONE (01:08)
[2022-03-31] MEDS: IPRATROPIUM BROM 0.5MG/2.5ML NEB SCH ×4 (01:20→19:50)
[2022-03-31] MEDS ORDERED: AMPICILLIN/SULBACTAM 3GM/VIAL ONE (03:59)
[2022-03-31] MEDS: AMPICILLIN/SULBACT 3 GM in NA CHLORIDE 0.9% 100 ML IVPB SCH ×4 (04:01→20:30)
[2022-03-31] MEDS ORDERED: NA CHLORIDE 0.9% 100 ML ONE (04:01)
[2022-03-31 04:24] LABS: Absolute Lymphocytes (CBC) 1.6 K/uL (0.7-4.9); Lymphocytes % 17.7 % (15.3-44.8); MCV 87.6 fL (80-100); RBC Red Blood Cell Count 4.11 M/uL (4.33-5.43)
[2022-03-31 04:41] LABS: Magnesium 2.2 mg/dL (1.8-2.4)
[2022-03-31] MEDS: MIDODRINE HCL 5 MG TABLET PO SCH ×2 (05:39→18:00)
--- NOTE | 2022-03-31 06:18 | P.PN ---
Date of Service: 03/31/22 Subjective: Improvement in cough, throat/chest pain Does not feel lesions in his mouth anymore No new symptoms/worsening of symptoms ROS: 10 point ROS as noted above, otherwise negative Physical exam GEN: Alert, oriented, NAD HEENT: Normal conjunctiva, oral candidiasis nearly resolved CV: Sinus tachycardia, no edema Pulm: non-labored respirations, on 2L NC, +productive cough ABD: Soft, nontender, nondistended Neuro: Normal speech, normal affect Problem List acute on chronic COPD exacerbation sepsis secondary to pneumonia, aspiration oropharyngeal candidiasis, suspected esophageal involvement h/o lung cancer chronic pain Heartburn COPD exacerbation with pneumonia pulm consulted continue inhalers/nebs, dc'd steroids chest physiotherapy patient reported feeling as though he was aspirating, and reported h/o aspiration blood culture - no growth. Urine: mixed Heartburn aspiration oropharyngeal candidiasis; esophageal and laryngeal involvement Takes Tums and pantoprazole at home Initially added Carafate which gave brief relief for 30 minutes. Discontinue noted patient is n.p.o. h/o aspiration ~1-2 yrs ago at [facility] speech and GI consulted; Esophagram noted aspiration to left lung ENT consulted, noted candidiasis down into larynx / vocal cords, suspected in the esophagus as well nystatin changed to diflucan given extensive involvement Oral thrush nearly resolved, patient's voice is less hoarse Hypoxia, tachycardia, coughing. Concern he is continuing to aspirate Discussed with patient after the initial esophagram there would be concern for ongoing aspiration, discussed PEG tube, which patient refused, and refused n.p.o., stating he knew what foods he did ok with and would stick with this patient with new R lung opacity concern for aspiration on 03/30 start unasyn 03/30, NPO, PPN speech eval friday, repeat esophogram friday Leukocytosis improved VTE: lovenox code: full Dispo: home, ~2 days Time Spent Managing Pts Care (In Minutes): 35
[2022-03-31] MEDS: INSULIN -REGULAR HUMAN 50 UNIT/0.5 ML ML SQ SCH ×4 (07:30→20:30)
[2022-03-31] MEDS: RIVAROXABAN 10 MG TABLET PO SCH (07:45)
[2022-03-31 08:13] LABS: Specific Gravity 1.011 (1.005-1.030); Urine Bilirubin NEGATIVE (Negative); Urine Blood Negative (Negative); Urine Clarity Clear (Clear); Urine Color Colorless (Yellow); Urine Glucose NEGATIVE (Negative); Urine Protein NEGATIVE (Negative); Urine Urobilinogen Normal (Normal); Urine pH 7.5 (5.0-7.0)
[2022-03-31] MEDS: NALOXONE SL SCH ×3 (08:34→20:32)
[2022-03-31] MEDS: PANTOPRAZOLE 40 MG INJ IVP SCH (08:34)
[2022-03-31] MEDS: BUPRENORPHINE SL SCH ×3 (08:34→20:32)
[2022-03-31] MEDS: ARFORMOTEROL TARTRATE 15 MCG/2 ML VIAL.NEB NEB SCH ×2 (09:06→19:50)
[2022-03-31] MEDS: FLUCONAZOLE 200mg IVPB 200 MG/100 ML BAG IV SCH (10:34)
[2022-03-31] MEDS: PHENOL 1.4% ORAL SPRAY 180ML MM PRN (15:17)
[2022-03-31] MEDS: AA 4.25 %/D5W/ELECTROLYTES 2,000 ML IV SCH (17:32)
[2022-03-31] MEDS: NA CHLORIDE 0.9% 1,000 ML IV SCH ×2 (17:33→20:31)
[2022-03-31] MEDS: QUETIAPINE 25 MG TAB PO SCH (20:30)
[2022-03-31] MEDS ORDERED: LORazepam 2 MG/ML VIAL IV ONE (23:54)
[2022-04-01] MEDS: IPRATROPIUM BROM 0.5MG/2.5ML NEB SCH ×5 (01:40→19:45)
[2022-04-01 03:43] LABS: Absolute Lymphocytes (CBC) 1.1 K/uL (0.7-4.9); Hematocrit 35.7 % (39.6-49.0); Lymphocytes % 16.7 % (15.3-44.8); MCV 86.1 fL (80-100); MPV 6.8 fL (7.6-11.3); RBC Red Blood Cell Count 4.15 M/uL (4.33-5.43)
[2022-04-01 04:49] LABS: Potassium 3.9 mmol/L (3.5-5.1)
[2022-04-01 04:50] LABS: Albumin 2.6 g/dL (3.4-5.0); Bilirubin Total 0.2 mg/dL (0.2-1.0); Magnesium 2.2; Protein, Total 6.7 g/dL (6.4-8.2)
[2022-04-01] MEDS: AMPICILLIN/SULBACT 3 GM in NA CHLORIDE 0.9% 100 ML IVPB SCH ×4 (04:50→23:12)
[2022-04-01] MEDS: MIDODRINE HCL 5 MG TABLET PO SCH ×2 (05:29→17:49)
[2022-04-01] MEDS: INSULIN -REGULAR HUMAN 50 UNIT/0.5 ML ML SQ SCH ×4 (07:30→21:00)
[2022-04-01] MEDS: RIVAROXABAN 10 MG TABLET PO SCH (07:33)
[2022-04-01] MEDS: NALOXONE SL SCH ×3 (07:33→21:00)
[2022-04-01] MEDS: BUPRENORPHINE SL SCH ×3 (07:33→21:00)
[2022-04-01] MEDS: FLUCONAZOLE 200mg IVPB 200 MG/100 ML BAG IV SCH (07:51)
[2022-04-01] MEDS: PANTOPRAZOLE 40 MG INJ IVP SCH (07:52)
[2022-04-01] MEDS: ARFORMOTEROL TARTRATE 15 MCG/2 ML VIAL.NEB NEB SCH ×2 (08:00→19:45)
--- NOTE | 2022-04-01 11:14 | RAD REPORT ---
EXAM DESCRIPTION: RAD - Chest Single View - 04/01/2022 10:50 am CLINICAL HISTORY: f/u b/l opacities Chest pain. COMPARISON: Chest Single View dated 03/30/2022; Chest Single View dated 03/26/2022; Chest Single View dated 03/23/2022; Chest Single View dated 03/09/2022 FINDINGS: Portable technique limits examination quality. Significant emphysema is seen left lung. Bibasilar reticular opacities have moderately improved. Smal l opacity in the right mid lung appears mildly more conspicuous than on prior study. Right apical ple ural based opacity appears unchanged. The heart is normal in size. No displaced fractures. IMPRESSION: Bibasilar reticular opacities have moderately improved since prior study.
--- NOTE | 2022-04-01 12:18 | RAD REPORT ---
EXAM DESCRIPTION: RAD - Esophagram Only - 04/01/2022 10:50 am CLINICAL HISTORY: re-eval aspiration Dysphagia, aspiration COMPARISON: Esophagram Only dated 03/27/2022 FINDINGS: The patient was administered thin barium by mouth under fluoroscopic observation. Moderate dysmotility of the esophagus is seen. No aspiration was observed. Total fluoroscopy time: 1 minutes and 6 seconds Number of images acquired: 4 IMPRESSION: No aspiration was observed during the examination.
[2022-04-01] MEDS ORDERED: AA 4.25 %/D5W/ELECTROLYTES 2,000 ML, Lipids 20% 250 ML with MULTIVITAMINS INJ 10 ML IV SCH ×3 (17:00)
[2022-04-01] MEDS: PHENOL 1.4% ORAL SPRAY 180ML MM PRN (21:12)
[2022-04-01] MEDS: QUETIAPINE 25 MG TAB PO SCH (21:12)
--- NOTE | 2022-04-01 22:17 | P.PN ---
Date of Service: 04/01/22 Subjective: no aspiration on esophogram noted esophageal dysmotility learned no speech therapy available feels better, hungry, wants food ROS: 10 point ROS as noted above, otherwise negative Physical exam GEN: Alert, oriented, NAD HEENT: Normal conjunctiva, oral candidiasis resolved CV: Sinus tachycardia, no edema Pulm: non-labored respirations, on 2L NC, +productive cough ABD: Soft, nontender, nondistended Neuro: Normal speech, normal affect Problem List acute on chronic COPD exacerbation sepsis secondary to pneumonia, aspiration oropharyngeal candidiasis, suspected esophageal involvement h/o lung cancer chronic pain Heartburn COPD exacerbation with pneumonia pulm consulted continue inhalers/nebs, dc'd steroids chest physiotherapy patient reported feeling as though he was aspirating, and reported h/o aspiration years ago blood culture - no growth. Urine: mixed Heartburn aspiration oropharyngeal candidiasis; esophageal and laryngeal involvement Takes Tums and pantoprazole at home. carafate helped for 20-30 min h/o aspiration ~1-2 yrs ago at [facility] speech and GI consulted; Esophagram noted aspiration to left lung ENT consulted, noted candidiasis down into larynx / vocal cords, suspected in the esophagus as well nystatin changed to diflucan given extensive involvement Oral thrush appears resolved. continues with sore throat Hypoxia, tachycardia, coughing. Concern he is continuing to aspirate Discussed with patient after the initial esophagram there would be concern for ongoing aspiration, discussed PEG tube, which patient refused, and refused n.p.o., stating he knew what foods he did ok with and would stick with this patient with new R lung opacity concern for aspiration on 03/30 start unasyn 03/30, NPO, PPN CXR improved speech therapy consulted, apparently unavailable for unknown duration discussed with GI, ok to advance diet, ok to dc home from GI standpoint once tolerating f soft diet started evenign of 04/01 Leukocytosis improved VTE: lovenox code: full Dispo: home, ~1 day Time Spent Managing Pts Care (In Minutes): 35
[2022-04-02] MEDS: IPRATROPIUM BROM 0.5MG/2.5ML NEB SCH ×4 (01:35→19:35)
[2022-04-02] MEDS ORDERED: AMPICILLIN/SULBACTAM 3GM/VIAL ONE (03:44)
[2022-04-02] MEDS ORDERED: NA CHLORIDE 0.9% 100 ML ONE (03:49)
[2022-04-02] MEDS: AMPICILLIN/SULBACT 3 GM in NA CHLORIDE 0.9% 100 ML IVPB SCH ×4 (04:00→22:00)
[2022-04-02] MEDS: MIDODRINE HCL 5 MG TABLET PO SCH ×2 (06:08→17:10)
[2022-04-02 06:12] LABS: Potassium 4.1 mmol/L (3.5-5.1)
[2022-04-02 06:13] LABS: Magnesium 2.3
[2022-04-02] MEDS: INSULIN -REGULAR HUMAN 50 UNIT/0.5 ML ML SQ SCH ×4 (07:30→21:00)
[2022-04-02] MEDS: PANTOPRAZOLE 40 MG INJ IVP SCH (08:01)
[2022-04-02] MEDS: FLUCONAZOLE 200mg IVPB 200 MG/100 ML BAG IV SCH (08:02)
[2022-04-02] MEDS: BUPRENORPHINE SL SCH ×3 (08:05→21:00)
[2022-04-02] MEDS: NALOXONE SL SCH ×3 (08:05→21:00)
[2022-04-02] MEDS: RIVAROXABAN 10 MG TABLET PO SCH (08:05)
[2022-04-02] MEDS: ARFORMOTEROL TARTRATE 15 MCG/2 ML VIAL.NEB NEB SCH ×2 (08:06→19:35)
--- NOTE | 2022-04-02 16:46 | P.PN ---
Subjective Date of Service: 04/02/22 Chief Complaint: COPD exacerbation, possible fungus upper airway infection Patient is complaining of retrosternal pain with meals He has been tolerating room air. Physical Examination - Vital Signs Temperature: 98.2 F Blood Pressure: 91/63 Pulse: 93 Respirations: 14 Pulse Ox (%): 95 Assessment And Plan - Current Problems (Diagnosis) (1) COPD exacerbation Current Visit: Yes Status: Acute (2) History of lung cancer Current Visit: Yes Status: Acute (3) Pneumonia Current Visit: No Status: Acute Qualifiers: Pneumonia type: due to unspecified organism Laterality: left (4) Sepsis Current Visit: No Status: Acute - Plan Physical exam GEN: Alert, oriented, NAD HEENT: No oral thrush CV: Sinus tachycardia, no edema Pulm: non-labored respirations, mild bibasilar Rales. ABD: Soft, nontender, nondistended Neuro: Normal speech, normal affect Problem List acute on chronic COPD exacerbation sepsis secondary to pneumonia, aspiration oropharyngeal candidiasis, suspected esophageal involvement h/o lung cancer chronic pain Heartburn COPD exacerbation with pneumonia Seen by pulmonary continue inhalers/nebs, off steroids. chest physiotherapy Barium swallow study: No aspiration noted. blood culture - no growth. Urine: mixed oropharyngeal candidiasis; esophageal and laryngeal involvement Takes Tums and pantoprazole at home. carafate helped for 20-30 min h/o aspiration ~1-2 yrs ago at [facility] speech and GI consulted; Esophagram 03/27 noted aspiration to left lung. Most recent barium swallow study 04/01 shows no aspiration ENT consulted, noted candidiasis down into larynx / vocal cords, suspected in the esophagus as well Continue diflucan given extensive involvement Oral thrush appears resolved. Per report patient refused PEG tube, also refused to be n.p.o. Patient has been tolerating soft diet. Discontinue PPN New R lung opacity concern for aspiration on 03/30 Continue unasyn 03/30. CXR improved speech therapy unavailable in this facility. Home health for speech therapy discussed with [facility] to advance diet, ok to dc home from GI standpoint once tolerating f Leukocytosis resolved. Possible discharge in a.m. VTE: lovenox code: full Dispo: home with PT and ST. Time Spent Managing Pts Care (In Minutes): 27
[2022-04-02] MEDS: QUETIAPINE 25 MG TAB PO SCH (20:18)
[2022-04-02] MEDS: NA CHLORIDE 0.9% 1,000 ML IV SCH (20:18)
[2022-04-02] MEDS: PHENOL 1.4% ORAL SPRAY 180ML MM PRN (20:19)
[2022-04-03] MEDS: IPRATROPIUM BROM 0.5MG/2.5ML NEB SCH ×2 (01:15→08:00)
[2022-04-03] MEDS: AMPICILLIN/SULBACT 3 GM in NA CHLORIDE 0.9% 100 ML IVPB SCH (04:31)
[2022-04-03] MEDS: MIDODRINE HCL 5 MG TABLET PO SCH (04:53)
[2022-04-03] MEDS ORDERED: NA CHLORIDE 0.9% 250 ML IV ONE (05:00)
[2022-04-03] MEDS: ALBUMIN HUMAN 25% 50 ML IV SCH ×2 (05:11→05:30)
[2022-04-03] MEDS: INSULIN -REGULAR HUMAN 50 UNIT/0.5 ML ML SQ SCH (07:30)
[2022-04-03] MEDS: ARFORMOTEROL TARTRATE 15 MCG/2 ML VIAL.NEB NEB SCH (08:00)
[2022-04-03] MEDS: NALOXONE SL SCH (08:25)
[2022-04-03] MEDS: BUPRENORPHINE SL SCH (08:25)
[2022-04-03] MEDS: PANTOPRAZOLE 40 MG INJ IVP SCH (08:26)
[2022-04-03] MEDS: RIVAROXABAN 10 MG TABLET PO SCH (08:26)
[2022-04-03] MEDS: FLUCONAZOLE 200mg IVPB 200 MG/100 ML BAG IV SCH (08:26)
[2022-04-03 08:40] VITALS: O2SAT 95
[2022-04-03 09:05] VITALS: BP 97/55; TEMP 98.4
--- NOTE | 2022-04-03 09:17 | P.DS ---
Admission Date: 03/23/22 Discharge Date: 04/03/22 Disposition: [place] HOME/HOME HEALTH CARE Discharge Condition: FAIR Reason for Admission: COPD exacerbation, possible fungus upper airway infection - Problems (1) COPD exacerbation Status: Acute (2) History of lung cancer Status: Acute (3) Pneumonia Status: Acute Qualifiers: Pneumonia type: due to unspecified organism Laterality: left (4) Sepsis Status: Acute Brief History of Present Illness: 66-year-old gentleman with a history of lung cancer status post radiation therapy, cranial radiation, chemotherapy, history of COVID-pneumonia presented to the emergency department with a complaint of progressive worsening shortness of breath and nonproductive cough. Patient was hospitalized for pneumonia and COPD exacerbation a couple of weeks ago. He was treated with antibiotics and discharged with prednisone taper and antibiotics. He was also prescribed nebulizer but patient never went for it. He denies any fever. Patient reports generalized weakness and shortness of breath with the slightest exertion. Patient not hypoxic. He was placed on 2 L oxygen by nasal cannula. Noted to be coughing persistently. Cough is nonproductive. He denies any fever. He reports chest pain worse with breathing. CTA thorax is reporting possible left lung pneumonia. No PE. Previous lung mass noted. Patient was hospitalized for further management. Hospital Course: Problem List acute on chronic COPD exacerbation sepsis secondary to pneumonia, aspiration oropharyngeal candidiasis, suspected esophageal involvement h/o lung cancer chronic pain Heartburn COPD exacerbation with pneumonia/oropharyngeal candidiasis; Seen by pulmonary Treated with antibiotics, inhalers/nebs, and steroids. chest physiotherapy blood culture - no growth. Urine: mixed h/o aspiration ~1-[address] [facility] speech and GI consulted; Esophagram 03/27 noted aspiration to left lung. Most recent barium swallow study 04/01 shows no aspiration ENT consulted, noted candidiasis down into larynx / vocal cords, suspected in the esophagus as well He was treated with diflucan given extensive involvement Oral thrush appears resolved. Per report patient refused PEG tube, also refused to be n.p.o. He later tolerated soft diet with good oral intake. Initially on TPN which was discontinued. New R lung opacity concern for aspiration on 03/30 Patient treated with unasyn. CXR improved speech therapy unavailable in this facility. Home health for speech therapy He had leukocytosis resolved. Patient has clinically improved. He is discharged with Augmentin for aspiration pneumonia and Diflucan to continue treatment for the esophageal candidiasis. He is informed he needs to follow-up with his oncologist regarding the remanent lung mass. Vital Signs/Physical Exam: Temp Pulse Resp BP Pulse Ox 98.4 F 97 H 16 97/55 L 95 04/03/22 08:04 04/03/22 08:04 04/03/22 08:04 04/03/22 08:04 04/03/22 08:04 General: In no apparent distress, Cachectic Neck: JVD not distended Respiratory: Clear to auscultation bilaterally, Normal air movement Cardiovascular: No edema, Regular rate/rhythm, Normal S1 S2 Gastrointestinal: Soft and benign, Non-distended, No tenderness Musculoskeletal: No swelling Integumentary: No cyanosis Neurological: Normal strength at 5/5 x4 extr Laboratory Data at Discharge: WBC 6.60 K/uL (4.3-10.9) 04/01/22 03:05 Hgb 12.1 g/dL (13.6-17.9) L 04/01/22 03:05 Hct 35.7 % (39.6-49.0) L 04/01/22 03:05 Plt Count 310 K/uL (152-406) 04/01/22 03:05 PT 12.3 SECONDS (9.5-12.5) 03/23/22 11:34 INR 1.12 03/23/22 11:34 APTT 21.1 SECONDS (24.3-36.9) L 03/23/22 11:34 Sodium 134 mmol/L (136-145) L 04/02/22 05:32 Potassium 4.1 mmol/L (3.5-5.1) 04/02/22 05:32 BUN 16 mg/dL (7-18) 04/02/22 05:32 Creatinine 0.63 mg/dL (0.55-1.3) 04/02/22 05:32 Glucose 108 mg/dL (74-106) H 04/02/22 05:32 Phosphorus 3.0 mg/dL (2.5-4.9) 04/01/22 03:05 Magnesium 2.3 04/02/22 05:32 Total Bilirubin 0.2 mg/dL (0.2-1.0) 04/01/22 03:05 AST 7 U/L (15-37) L 04/01/22 03:05 ALT 14 U/L (12-78) 04/01/22 03:05 Alkaline Phosphatase 67 U/L (45-117) 04/01/22 03:05 Home Medications: Buprenorphine/Nalox 0.5 film SL TID 03/07/22 Megestrol [Megace*] 40 mg PO BID 03/07/22 Midodrine HCl [Proamatine*] 5 mg PO BID 03/07/22 Quetiapine [Seroquel*] 75 mg PO BEDTIME 03/07/22 Albuterol Neb [Proventil 0.083% Neb Soln] 2.5 mg NEB [id number] #60 amp 03/10/22 Ipratropium Neb [Atrovent*] 0.5 mg NEB [id number] #60 amp 03/10/22 Umeclidinium Brm/Vilanterol Tr [Anoro Ellipta 62.5-25 Mcg INH] 1 each IH DAILY #30 aero 03/29/22 Amox/Clavulanate [Augmentin 875-125 Tab] 1 each PO BID #22 tab 04/03/22 Benzocaine/Menthol [Cepacol Sore Throat Lozenge] 1 each PO Q4H PRN #30 lozenge 04/03/22 Fluconazole [Diflucan] 200 mg PO DAILY #12 tab 04/03/22 Pantoprazole [Protonix Tab] 40 mg PO BID #60 tab 04/03/22 Rivaroxaban [Xarelto*] 10 mg PO DAILY #30 tab 04/03/22 Sucralfate [Carafate Liq] 10 ml PO AC #300 ml 04/03/22 New Medications: Umeclidinium Brm/Vilanterol Tr [Anoro Ellipta 62.5-25 Mcg INH] 1 each IH DAILY #30 aero Amox/Clavulanate [Augmentin 875-125 Tab] 1 each PO BID #22 tab Sucralfate [Carafate Liq] 10 ml PO AC #300 ml Benzocaine/Menthol [Cepacol Sore Throat Lozenge] 1 each PO Q4H PRN #30 lozenge PRN Reason: Sore Throat Fluconazole [Diflucan] 200 mg PO DAILY #12 tab Pantoprazole [Protonix Tab] 40 mg PO BID #60 tab Rivaroxaban [Xarelto*] 10 mg PO DAILY #30 tab Diet: Soft diet Activity: Fall precautions Followup: SADIE NOEL [Primary Care Provider] - 1 Week Kenneth Ortiz MD [ACTIVE - CAN ADMIT] - 1-2 Weeks Time spent managing pt's care (in minutes): 38
== END 2022-04-03 10:40 | disposition home or self-care (01) | DRG 871 ==
LOC: ER 11:08 → ERHOLD 15:47 → 2ND 03-24 15:36 → 4TH 03-28 12:50
PROVIDERS: ADMIT Internal Medicine; ATTEND Internal Medicine
DX: A41.9 Sepsis, unspecified organism (principal); J69.0 Pneumonitis due to inhalation of food and vomit; J44.1 Chronic obstructive pulmonary disease with (acute) exacerbation; B37.0 Candidal stomatitis; R64 Cachexia; Z68.1 Body mass index [BMI] 19.9 or less, adult; G89.29 Other chronic pain; F17.200 Nicotine dependence, unspecified, uncomplicated; R12 Heartburn; R13.12 Dysphagia, oropharyngeal phase; Z23 Encounter for immunization; Z86.16 Personal history of COVID-19; Z79.52 Long term (current) use of systemic steroids; Z85.118 Personal history of other malignant neoplasm of bronchus and lung; Z79.899 Other long term (current) drug therapy; Z20.822 Contact with and (suspected) exposure to COVID-19
CPT/HCPCS: 36415; 71045; 71275; 74220; 80048; 80053; 81003; 81015; 82947; 83605; 83735; 83880; 84100; 84484; 85025; 85027; 85610; 85730; 87040; 87070; 87086; 87088; 87205; 87804; 90471; 90732; 92610; 93005; 94010; 94760; 96361; 96365; 96367; 96368; 96375; 97161; 99285; C9113; J0295; J0456; J1170; J1200; J1450; J1650; J1815; J2405; J2920; J2930; J3010; J3475; J7030; J7040; J7050; J7512; J7605; J7614; J7799; P9045; P9047; Q9967; U0003

== ENCOUNTER 2022-04-23 11:13 | Inpatient (IN) | payer OTHER ==
--- OUTSIDE RECORDS SUMMARY | 2022-04-23 11:20 | XMS REPORT | Clinical Summary ---
:1955 Author Organization [facility] Address [address] [place] [address] Care Team Providers Name Role Phone Carl [...] needed. 022 (St op Taking at Discharge) enoxaparin (Lovenox) Inject 0.5 mL 60 Syringe 2 02/28/20/07/01 Discontinued 60 mg/0.6 mL (50 mg) under [...] Disc harge) Aspiration into lower respiratory tract senna (SENOKOT) [...] pneumonia, Acute kidney injury due to hypovolemia ondansetron (ZOFRAN) Take 1 tablet (8 20 tablet 2 03/02/20 Discontinued 8 mg mg) by mouth (Therap y tabletIndications: every 8 (eight) completed) Small cell carcinoma hours as needed of upper lobe of for nausea or right lung vomiting. QUEtiapine 3 tablets (75 270 tablet 1 09/08/20 01/12/2 Disc ontinued (SEROquel) 25 mg mg) by feeding (Reorder) tabletIndications: tube route at Aspiration into bedtime. lower respiratory tract OLANZapine (ZyPREXA) Take 1 tablet 30 tablet [...] 40 mg EC (40 mg) by mouth 22 022 tabletIndications: daily. Aspiration into lower respiratory tract memantine (Namenda) 5 mg a day x 1 60 tablet 6 08/13/1909/07 Discontinued 10 mg week, then 5 mg 22 022 (Sto p Taking at tabletIndications: twice daily x 1 Discharge) Small cell week, then 10 mg carcinoma, NOS of every am and 5 upper lobe, lung mg every pm x 1 <Right> week, then 10 mg twice daily for 6 months HYDROcodone-acetamin Take 1 tablet by 100 tablet 0 08/14/19 0 Discontinued ophen ([place]) 5 mouth every 6 022 (Reorder) mg-325 [...] 100 tablet 0 08/18/19 0 Discontinued ophen ([place]) 5 mouth every 6 022 (Stop Taking [...] automatically from request for rosa maria pablo [id number] Community acquired pneumonia 09/03/2021 Small cell carcinoma of lung 05/17/2021 Overview: Added automatically from request for rosa maria pablo [id number] Family education about pain management 05/08/2021 History of radiation therapy 02/16/2021 Pressure-induced deep tissue damage of other site 02/2021 Overview: Site: Coccyx Sepsis 01/04/2021 Pulmonary embolism 11/17/2020 Stage 1 pressure ulcer of other site 11/14/2020 Overview: Left ear- 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 Tube feeding diet [...] 08/10/2020 Decompensated COPD with acute exacerbation 07/30/2020 care home current use of opiate analgesic 07/30/2020 Small [...] induced diabetes mellitus with hyperglycemia 09/19/2020 09/04/2021 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 09/19/2020 09/04/2021 Pneumocystosis pneumonia 09/04/2020 09/04/2021 Cytomegalovirus infection 09/04/2020 09/04/2021 Diarrhea 08/21/2020 09/04/2021 Aspiration into lower respiratory tract 08/10/2020 09/04/2021 Overview: Added automatically from request for rosa maria shah [id number] COVID-19 07/29/2020 09/04/2021 Amaurosis fugax 10/26/2017 09/04/2021 Cancer-related fatigue 09/04/2021 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 Tomography - chest abnormal 09/04/2021 Encounters Date Type Specialty Care Team Description 12/28/2021 Nurse Triage Constantine Willis NP 12/28/2021 Documentation Thoracic Medicine Henrique Plasencia MD 12/20/2021 Telephone Lolita Gonzales RN 12/11/2021 Telephone Radiation Oncology Bibiana Pedersen RN 12/05/2021 Telephone Thoracic Medicine Kasie Mehta, [...] with acute exacerbation; DO Swallowing painful; Jluis, Felix, Pneumocystosis pneumonia; Randa, Son V., Adjustment d isorder with mixed anxiety [...] ANP 08/20/2021 Orders Only Pulmonology Lela Sanon of b mookie Ramírez APN (Primary Dx) 08/18/2021 Orders Only Thoracic Medicine Stella Clark ANP 08/18/2021 Orders Only Thoracic Medicine Henrique Plasencia c ell carcinoma, NOS of upper lobe, lung <Right>; MD Nickie Adjustment diso rder with mixed anxiety and depressed mood 08/17/2021 Telephone Thoracic Medicine Zulema Cedillo RN 08/14/2021 Office Visit Mohs Migden, Actinic keratos is (Primary Dx); MD Kang Personal histor y of other malignant neoplasm of skin 08/14/2021 Office Visit Thoracic Medicine Henrique Plasencia Small c ell carcinoma, NOS of upper lobe, lung <Right>; MD Nickie Adjustment diso rder with mixed anxiety and depressed mood 08/14/2021 Orders Only Pulmonology Solo, Shortness of br estelitaannetta Jacki, EMERGENCY DOCTOR (Primary Dx) 08/14/2021 Orders Only Thoracic Medicine GucciSarah Small c ell carcinoma, M, VOCATIONAL COORDINATOR NOS of upper lo be, lung <Right> (P rimary Dx) 08/14/2021 Travel 08/13/2021 Hospital Encounter Radiation Oncology Ronan Marr MD N on-small cell lung cancer <Unspeci fied side> 08/13/2021 Hospital Encounter Radiology Nicole Del Rosario Non-small cell lung Jri, ONELIA cancer <Unspeci fied side> 08/13/2021 Orders Only Radiation Oncology Nicole Del Rosario benita l carcinoma, Chunyi, VOCATIONAL COORDINATOR NOS of upper lo be, lung <Right> 08/13/2021 Travel 08/11/2021 Refill Thoracic Medicine Henrique Plasencia Adjustm ent disorder MD Nickie with mixed anxi ety and depressed mood 08/07/2021 Orders Only Abdirizak Ruiz, Personal his tory of MD other malignant neoplasm of ski n (Primary Dx) 07/27/2021 Telephone Radiation Oncology Génesis Farias, RN 07/27/2021 Refill Thoracic Medicine Amber, Aspiration into lower MADALYN Douglas respiratory t ract 07/26/2021 Telephone Thoracic Medicine jyoti Manzo ts (see Génesis Trevino, RN documenation) 07/26/2021 Orders Only Radiation Oncology Jackie Mendez, VOCATIONAL COORDINATOR 07/26/2021 Refill Thoracic Medicine Amber, Upper resp iratory MADALYN Douglas infection, no t otherwise speci fied 07/19/2021 Telephone Thoracic Medicine Daisy Shaffer, RN 07/12/2021 Telephone Thoracic Medicine Stella Clark ANP [...] Thoracic Medicine Yudith Rivas Upper r espiratory Fallon, RN infection, not otherwise speci fied 06/06/2021 Telephone Thoracic Medicine Jyoti Manzo RN 05/21/2021 Surgery Endoscopy Neha Tobin, LILIA O F GASTROSTOMY TUB E, PERCUTANEOUS, I NCLUDES REMOVAL, WHEN PERFORMED, WITH OUT IMAGING OR ENDO SCOPIC GUIDANCE; NOT REQUIRING ROSA ION OF GASTROSTOMY TRA CT 05/21/2021 Hospital Encounter Endoscopy Neha Tobin MD 05/21/2021 Travel 05/17/2021 Prep for Surgery Endoscopy Elmira Lanier l carcinoma N, RIVER PILOT of lung <Right side> (Primary Dx) 05/17/2021 [...] y Dx) 04/27/2021 Orders Only Thoracic Medicine Amber Insomnia, not MADALYN Douglas otherwise spe cified (Primary Dx) 04/25/2021 Orders Only Thoracic Medicine Amber, Adjustment disorder with anxiety; MADALYN Douglas Muscle spasm of back 04/23/2021 Hospital Encounter Radiation Oncology Ronan Marr MD S mall cell carcinoma, NOS of upper lo be, lung <Right> 04/23/2021 Orders Only Radiation Oncology Nicole Del Rosario Non-small cell lung Kwabenanyi, VOCATIONAL COORDINATOR cancer <Unspeci fied side> (Primary Dx) 04/23/2021 Orders Only Radiation Oncology Nicole Del Rsoario Small benita l carcinoma, Chunyi, VOCATIONAL COORDINATOR NOS of upper lo be, lung <Right> 04/23/2021 Orders Only Radiation Oncology Nicole Del Rosario, VOCATIONAL COORDINATOR 04/23/2021 Orders Only Radiation Oncology Nicole Del Rosario Non-small cell lung Torrey, VOCATIONAL COORDINATOR cancer <Unspeci fied side> (Primary Dx) 04/23/2021 Travel after 04/23/2021 Immunizations Name Administration Dates Next Due Bamlanivimab 07/29/2020 () Influenza Split High Dose 03/29/2020 Preservative Free IM Zoster Recombinant 03/29/2020 remdesivir 08/22/2020, 08/22/2020, 08/21/2020, 08/20/2020, 08/19/2020, 08/18/2020, 08/03/2020, 08/02/2020, 08/02/2020, 08/01/2020, 07/31/2020, 07/30/2020 Surgical History Surgery Date Site/Laterality Comments NC EGD BALLOON DILATION 09/29/2020 Esophagus/N/A Procedur e: UPPER ESOPHAGUS <30 MM DIAM GASTROINTE STINAL ENDOSCOPY WITH BALLOON DILATION OF ESOPHAGUS; Surgeon: Owen real MD; Location: MAIN E NDOSCOPY; Service: GASTROE NTEROLOGY NC EGD PERCUTANEOUS 09/29/2020 Abdomen/N/A Procedure: U PPER PLACEMENT GASTROSTOMY TUBE GASTR OINTESTINAL ENDOSCOPY WITH DIRECTED PLACEME NT OF PERCUTANEOUS (PE G) GASTROSTOMY TUBE; Surgeon: Desiree Leonard MD; Location: MAIN E NDOSCOPY; Service: GASTROE NTEROLOGY NC BRNCHSC W/BRNCL ALVEOLAR 10/23/2020 N/A Proc edure: FLEXIBLE LAVAGE BRONCHOSCOPY WIT H BRONCHIAL ALVEOLAR LAVAGE; Surgeon: Krys Brewer MD; Lo cation: MAIN PULM PROC; Servi ce: PULMONARY NC PERQ REPLACEMENT GTUBE 05/21/2021 N/A Proced ure: REPLACEMENT OF NOT REQ REVJ GSTRST TRC GASTROST RANDEE TUBE, PERCUTANEOUS, INCLUDES REMOVAL , WHEN PERFORMED, WITHO UT IMAGING OR ENDOSCOPIC DENNIS NCE; NOT REQUIRING REVISI ON OF GASTROSTOMY TRAC T; Surgeon: Neha Tobin MD ; Location: MAIN ENDOSCOPY; Service: GASTROENTEROLOGY NC EGD TRANSORAL BIOPSY 10/19/2021 Esophagus/N/A Procedur e: [...] Now 10/16/2021 8:05 Re sults for this VOCATIONAL COORDINATOR SWAB AM CDT procedure are i n [...] 09/05/2021 5:48 Re sults for this AM MACHINE PRINTER HOSE procedure are i n the results section. TOTAL PROTEIN AM 09/05/2021 5:48 Results for this AM MACHINE PRINTER HOSE procedure are i n the results section. ASPARTATE AM 09/05/2021 5:48 Results for this AMINOTRANSFERASE AM MACHINE PRINTER HOSE procedure a re in the results section. ALANINE AMINOTRANSFERASE AM 09/05/2021 5:48 Results for this AM MACHINE PRINTER HOSE procedure are i n the results section. ALKALINE PHOSPHATASE AM 09/05/2021 5:48 Resu lts for this AM MACHINE PRINTER HOSE procedure are i n the results section. ALBUMIN LEVEL AM 09/05/2021 5:48 Results for this AM MACHINE PRINTER HOSE procedure are i n the results section. CALCIUM LEVEL TOTAL AM 09/05/2021 5:48 Resul ts for this AM MACHINE PRINTER HOSE procedure are i n the results section. .GLOMERULAR FILTRATION AM 09/05/2021 5:48 Re sults for this RATE AM MACHINE PRINTER HOSE procedure are i n the results section. SERUM CREATININE AM 09/05/2021 5:48 Results for this AM MACHINE PRINTER HOSE procedure are i n the results section. ELECTROLYTE PANEL AM 09/05/2021 5:48 Results for this AM MACHINE PRINTER HOSE procedure are i n the results section. BLOOD UREA NITROGEN AM 09/05/2021 5:48 Resul ts for this AM MACHINE PRINTER HOSE procedure are i n the results section. GLUCOSE LEVEL AM 09/05/2021 5:48 Results for this AM MACHINE PRINTER HOSE procedure are i n the results section. MANUAL DIFFERENTIAL AM 09/05/2021 5:48 Resul ts for this AM MACHINE PRINTER HOSE procedure are i n the results section. Results CBC AM 09/05/2021 5:48 Results for this AM MACHINE PRINTER HOSE procedure are i n the results section. PHOSPHORUS LEVEL AM 09/05/2021 5:48 Results for this AM MACHINE PRINTER HOSE procedure are i n the results section. MAGNESIUM LEVEL AM 09/05/2021 5:48 Results f or this AM MACHINE PRINTER HOSE procedure are i n the results section. COMPREHENSIVE METABOLIC AM 09/05/2021 5:48 PANEL AM MACHINE PRINTER HOSE COMPLETE BLOOD COUNT W/ AM 09/05/2021 5:48 DIFFERENTIAL AM MACHINE PRINTER HOSE STREPTOCOCCAL URINE Routine 09/04/2021 1:38 Resu lts for this ANTIGEN PATH REVIEW PM MACHINE PRINTER HOSE procedur e are in the results section. LEGIONELLA URINE ANTIGEN Routine 09/04/2021 1:38 Results for this PATH REVIEW PM MACHINE PRINTER HOSE procedure are i n the results section. LEGIONELLA URINE ANTIGEN Now 09/04/2021 1:38 Results for this PM MACHINE PRINTER HOSE procedure are i n the results section. STREPTOCOCCUS PNEUMONIAE Now 09/04/2021 1:38 Results for this URINE ANTIGEN PM MACHINE PRINTER HOSE procedure are in the results section. LOWER RESPIRATORY Now 09/04/2021 1:36 Results for this CULTURE W/ GRAM STAIN PM MACHINE PRINTER HOSE proced ure are in the results section. CALCIUM LEVEL TOTAL AM 09/04/2021 3:51 Resul ts for this AM MACHINE PRINTER HOSE procedure are i n the results section. .GLOMERULAR FILTRATION AM 09/04/2021 3:51 Re sults for this RATE AM MACHINE PRINTER HOSE procedure are i n the results section. SERUM CREATININE AM 09/04/2021 3:51 Results for this AM MACHINE PRINTER HOSE procedure are i n the results section. ELECTROLYTE PANEL AM 09/04/2021 3:51 Results for this AM MACHINE PRINTER HOSE procedure are i n the results section. BLOOD UREA NITROGEN AM 09/04/2021 3:51 Resul ts for this AM MACHINE PRINTER HOSE procedure are i n the results section. GLUCOSE LEVEL AM 09/04/2021 3:51 Results for this AM MACHINE PRINTER HOSE procedure are i n the results section. TROPONIN T Routine 09/04/2021 3:51 Results for this AM MACHINE PRINTER HOSE procedure are i n the results section. PHOSPHORUS LEVEL AM 09/04/2021 3:51 Results for this AM MACHINE PRINTER HOSE procedure are i n the results section. MAGNESIUM LEVEL AM 09/04/2021 3:51 Results f or this AM MACHINE PRINTER HOSE procedure are i n the results section. BASIC METABOLIC PANEL, AM 09/04/2021 3:51 CALCIUM TOTAL AM MACHINE PRINTER HOSE CKMB Now 09/03/2021 9:49 Results for this PM MACHINE PRINTER HOSE procedure are i n the results section. CREATINE KINASE Now 09/03/2021 9:49 Results f or this PM MACHINE PRINTER HOSE procedure are i n the results section. TROPONIN T Now 09/03/2021 9:49 Results for this PM MACHINE PRINTER HOSE procedure are i n the results section. CT CHEST PULMONARY Routine 09/03/2021 9:46 Result s for this EMBOLISM W CONTRAST PM MACHINE PRINTER HOSE procedur e are in the results section. XR CHEST 1 VW Routine 09/03/2021 5:40 Results for this PM MACHINE PRINTER HOSE procedure are i n the results section. RESPIRATORY VIRAL Now 09/03/2021 5:14 Results for this MULTIPLEX PCR PANEL, PM MACHINE PRINTER HOSE procedu re are in NASOPHARYNGEAL SWAB the resu lts section. FRACTIONATED BILIRUBIN Now 09/03/2021 3:54 Re sults for this PM MACHINE PRINTER HOSE procedure are i n the results section. TOTAL PROTEIN Now 09/03/2021 3:54 Results for this PM MACHINE PRINTER HOSE procedure are i n the results section. ASPARTATE Now 09/03/2021 3:54 Results for this AMINOTRANSFERASE PM MACHINE PRINTER HOSE procedure a re in the results section. ALANINE AMINOTRANSFERASE Now 09/03/2021 3:54 Results for this PM MACHINE PRINTER HOSE procedure are i n the results section. ALKALINE PHOSPHATASE Now 09/03/2021 3:54 Resu lts for this PM MACHINE PRINTER HOSE procedure are i n the results section. ALBUMIN LEVEL Now 09/03/2021 3:54 Results for this PM MACHINE PRINTER HOSE procedure are i n the results section. CALCIUM LEVEL TOTAL Now 09/03/2021 3:54 Resul ts for this PM MACHINE PRINTER HOSE procedure are i n the results section. .GLOMERULAR FILTRATION Now 09/03/2021 3:54 Re sults for this RATE PM MACHINE PRINTER HOSE procedure are i n the results section. SERUM CREATININE Now 09/03/2021 3:54 Results for this PM MACHINE PRINTER HOSE procedure are i n the results section. ELECTROLYTE PANEL Now 09/03/2021 3:54 Results for this PM MACHINE PRINTER HOSE procedure are i n the results section. BLOOD UREA NITROGEN Now 09/03/2021 3:54 Resul ts for this PM MACHINE PRINTER HOSE procedure are i n the results section. GLUCOSE LEVEL Now 09/03/2021 3:54 Results for this PM MACHINE PRINTER HOSE procedure are i n the results section. MANUAL DIFFERENTIAL STAT 09/03/2021 3:54 Resul ts for this PM MACHINE PRINTER HOSE procedure are i n the results section. Results CBC STAT 09/03/2021 3:54 Results for this PM MACHINE PRINTER HOSE procedure are i n the results section. TROPONIN T Now 09/03/2021 3:54 Results for this PM MACHINE PRINTER HOSE procedure are i n the results section. NT PRO BNP Now 09/03/2021 3:54 Results for this PM MACHINE PRINTER HOSE procedure are i n the results section. PHOSPHORUS LEVEL Now 09/03/2021 3:54 Results for this PM MACHINE PRINTER HOSE procedure are i n the results section. MAGNESIUM LEVEL Now 09/03/2021 3:54 Results f or this PM MACHINE PRINTER HOSE procedure are i n the results section. COMPREHENSIVE METABOLIC Now 09/03/2021 3:54 PANEL PM MACHINE PRINTER HOSE COMPLETE BLOOD COUNT W/ Now 09/03/2021 3:54 DIFFERENTIAL PM MACHINE PRINTER HOSE EKG, 12-LEAD (PORTABLE) STAT 09/03/2021 CT CHEST W CONTRAST Routine 08/13/2021 8:15 Non-small cell Res ults for this AM MACHINE PRINTER HOSE lung cancer procedure are i n <Unspecified the results side> section. POC CREATININE Routine 08/13/2021 7:30 Results fo r this AM MACHINE PRINTER HOSE procedure are i n the results section. REPLACEMENT OF 05/21/2021 10:50 Small cell GASTROSTOMY TUBE, PM MACHINE PRINTER HOSE carcinoma of lung PERCUTANEOUS, INCLUDES <Right side> REMOVAL, WHEN PERFORMED, WITHOUT IMAGING OR ENDOSCOPIC GUIDANCE; NOT REQUIRING REVISION OF GASTROSTOMY TRACT Special Needs on ASA 81 mg and Lovenox after 04/23/2021 Results .Serum Creatinine (10/24/2021 5:53 AM CDT)Only the most recent of12 results within the time period is included. P athologist Signature Creatinine 0.81 0.67 - 1.17 AL MD PERRY mg/dL [facility] Specimen Anatomical Collection Method Collection Time Receive d Time (Source) Location / / Volume Laterality Blood 10/24/2021 5:53 AM 6:21 CDT AM CDT Ronnie Tolentino MD LAB BLOOD ORDERABLES Performing Organization Address City/[facility] Phon e Number [facility] Unless otherwise noted, [address] all lab tests performed by: Division of Pathology and Laboratory Medicine [facility] [place] (ABNORMAL) .CBC (10/24/2021 5:53 AM CDT)Only the most recent of11 resultswithin the time period is included. athologist Signature WBC 11.5 (H) 4.0 - 11.0 [facility] K/[facility] RBC 4.25 (L) 4.50 - AL MD 6.00 M/[facility] Hgb 12.1 (L) 14.0 - AL MD 18.0 gm/dL [facility] Hct 38.9 (L) 40.0 - AL MD 54.0 % [facility] MCV 92 82 - 98 [facility] MCH 28.5 27.0 - AL MD 31.0 pg [facility] MCHC 31.1 31.0 - AL MD 36.0 gm/dL [facility] RDW-SD 57.5 (H) 35.1 - AL MD 46.3 [facility] RDW-CV 17.4 (H) 12.0 - AL MD 15.5 % [facility] Platelet count 313 140 - 440 [facility] MPV 8.8 4.0 - 10.4 [facility] INRBC 0.2 (H) <=0.0 % [facility] Comment: The INRBC (instrument NRBC) [...] MD LAB BLOOD ORDERABLES Performing Organization Address City/[facility] Phon e Number [facility] Unless otherwise noted, [address] all lab tests performed by: Division of Pathology and Laboratory Medicine [address] [place] Glomerular Filtration Rate (10/24/2021 5:53 AM CDT)Only the most recent of12 resultswithin the time period is included. P athologist Signature eGFR-AA 107 >=60 AL MD PERRY mL/min/1.73 [facility] sq. m [...] <15 eGFR-JCARLOS 93 >=60 mL/min/1.73 sq. m AL MD Ramírez [facility] Comment: Normal eGFR: >= 60 [...] Organization Address City/State/ZIP Code Phon e Number [facility] Unless otherwise noted, [address] all lab tests performed by: Division of Pathology and Laboratory Medicine [address] Fractionated Bilirubin (10/24/2021 5:53 AM CDT)Only the most recent of11 results within the time period is included. athologist [facility] Bili Total <0.3 <=1.2 mg/dL [facility] Comment: Direct and indirect bilirubin [...] MD LAB BLOOD ORDERABLES Performing Organization Address City/State/[facility] Code Phon e Number [facility] Unless otherwise noted, [address] all lab tests performed by: Division of Pathology and Laboratory Medicine [address] [employer] (ABNORMAL) Differential (10/24/2021 5:53 AM CDT)Only the most recent of11 resultswithin the time period is included. [facility] Total Cells 100 [facility] Neutrophil % 63.0 42.0 - 66.0 [facility] Comment: The Neutrophil count includes B ands. Lymphocyte % 20.0 (L) 24.0 - 44.0 % AL MD ANNIKA Zimmerman [facility] Monocyte % 9.0 (H) 2.0 - 7.0 % [facility] Eosinophil % 2.0 1.0 - 4.0 % [facility] Metamyelocyte % 6.0 (H) <=0.0 % [facility] Comment: The Metamyelocyte count include s Myelocytes. NRBC 1.0 (H) <=0.0 AL MD PERRY [facility] Neutrophil Abs 7.25 1.70 - 7.30 K/uL AL MD MANOHAR PLASENCIA [facility] Lymphocyte Abs 2.30 1.00 - 4.80 K/uL AL MD MANOHAR PLASENCIA [facility] Monocyte Abs 1.04 (H) 0.08 - 0.70 K/uL AL MD EMIGDIO [facility] Eosinophil Abs 0.23 0.04 - 0.40 K/uL AL MD MANOHAR PLASENCIA [facility] RBC Morph Present (A) Normal AL MD PERRY [facility] [place] PLT Morph Normal Normal AL MD PERRY [facility] R [place] Anisocytosis Present (A) Not Present AL MD ANNIKA Zimmerman [facility] Poik Present (A) Not Present AL MD ORLANDO Trevino [facility] [place] Polychromasia Present (A) Not Present AL MD MEDINA ON [facility] Ovalocyte Present (A) Not Present AL MD ORLANDO Trevino [facility] Tear Drop Present (A) Not Present AL MD OR[place]O Trevino [facility] Specimen Anatomical Collection Method Collection Time Receive d Time (Source) Location / / Volume Laterality Blood 10/24/2021 5:53 AM 2 6:16 CDT AM CDT Ronnie Tolentino MD LAB BLOOD ORDERABLES Performing Organization Address City/[facility] Phon e Number [facility] Unless otherwise noted, [address] all lab tests performed by: Division of Pathology and Laboratory Medicine [facility]5 [facility] BUN (10/24/2021 5:53 AM CDT)Only the most recent of12 resultswithin the time period is included. athologist Signature BUN 15 6 - 23 [facility] mg/dL [facility] Specimen Anatomical Collection Method Collection Time Receive d Time (Source) Location / / Volume Laterality Blood 10/24/2021 5:53 AM 2 6:21 CDT AM CDT Ronnie Tolentino MD LAB BLOOD ORDERABLES Performing Organization Address City/[facility] Phon e Number [facility] Unless otherwise noted, [address] all lab tests performed by: Division of Pathology and Laboratory Medicine [address] [facility] ALT (10/24/2021 5:53 AM CDT)Only the most recent of11 resultswithin the time period is included. athologist Signature ALT 14 <=41 U/L [facility] Specimen Anatomical Collection Method Collection Time Receive d Time (Source) Location / / Volume Laterality Blood 10/24/2021 5:53 AM 2 6:21 CDT AM CDT Ronnie Tolentino MD LAB BLOOD ORDERABLES Performing Organization Address City/[facility] Phon e Number [facility] Unless otherwise noted, [address] all lab tests performed by: Division of Pathology and Laboratory Medicine [address] [place] Aspartate Aminotransferase (10/24/2021 5:53 AM CDT)Only the most recent of11 resultswithin the time period is included. P athologist Signature AST 14 <=40 U/L [facility] Specimen Anatomical Collection Method Collection Time Receive d Time (Source) Location / / Volume Laterality Blood 10/24/2021 5:53 AM 2 6:21 CDT AM CDT Ronnie Tolentino MD LAB BLOOD ORDERABLES Performing Organization Address [facility] Phon e Number [facility] Unless otherwise noted, [address] all lab tests performed by: Division of Pathology and Laboratory Medicine [address] [place] (ABNORMAL) Total Protein (10/24/2021 5:53 AM CDT)Only the most recent of11 resultswithin the time period is included. P athologist Signature Total Protein 6.3 (L) 6.4 - 8.3 [facility] g/dL [facility] Specimen Anatomical Collection Method Collection Time Receive d Time (Source) Location / / Volume Laterality Blood 10/24/2021 5:53 AM 2 6:21 CDT AM CDT Ronnie Tolentino MD LAB BLOOD ORDERABLES Performing Organization Address City/[facility] Phon e Number [facility] [facility] Unless otherwise noted, [address] all lab tests performed by: Division of Pathology and Laboratory Medicine [address] [place] Phosphorus Level (10/24/2021 5:53 AM CDT)Only the most recent of12 resultswithin the time period is included. P athologist Signature Phosphorus 3.4 2.5 - 4.5 [facility] mg/dL [facility] Specimen Anatomical Collection Method Collection Time Receive d Time (Source) Location / / Volume Laterality Blood 10/24/2021 5:53 AM 2 6:21 CDT AM CDT Ronnie Tolentino MD LAB BLOOD ORDERABLES Performing Organization Address City/[facility]/ZIP Code Phon e Number [facility] CANCER Unless otherwise noted, [address] all lab tests performed by: Division of Pathology and Laboratory Medicine [address] [place] Alkaline Phosphatase (10/24/2021 5:53 AM CDT)Only the most recent of11 results within the time period is included. P athologist Signature Alk Phos 59 40 - 129 [facility] U/L [facility] Specimen Anatomical Collection Method Collection Time Receive d Time (Source) Location / / Volume Laterality Blood 10/24/2021 5:53 AM 2 6:21 CDT AM CDT Ronnie Tolentino MD LAB BLOOD ORDERABLES Performing Organization Address City/[facility]/ZIP [facility] Phon e Number [facility] CANCER Unless otherwise noted, [address] all lab tests performed by: Division of Pathology and Laboratory Medicine [address] [place] Magnesium Level (10/24/2021 5:53 AM CDT)Only the most recent of12 resultswithin the time period is included. P athologist Signature Magnesium 2.1 1.6 - 2.6 [facility] mg/dL [facility] Specimen Anatomical Collection Method Collection Time Receive d Time (Source) Location / / Volume Laterality Blood 10/24/2021 5:53 AM 2 6:21 CDT AM CDT Ronnie Tolentino MD LAB BLOOD ORDERABLES Performing Organization Address City/[facility]/ZIP [facility] Phon e Number [facility] CANCER Unless otherwise noted, [address] all lab tests performed by: Division of Pathology and Laboratory Medicine [address] [place] (ABNORMAL) Glucose Level (10/24/2021 5:53 AM CDT)Only the most recent of12 resultswithin the time period is included. P athologist Signature Glucose Level 105 (H) 70 - 99 [facility] mg/dL [facility] Comment: Effective 01/24/16, the glucose reference intervals have been updated based on [employer] guidelines (Standards of Medical Care [...] MD LAB BLOOD ORDERABLES Performing Organization Address City/[facility] Phon e Number [facility] CANCER Unless otherwise noted, [address] all lab tests performed by: Division of Pathology and Laboratory Medicine [address] [place] Calcium Level (10/24/2021 5:53 AM CDT)Only the most recent of12 resultswithin the time period is included. P athologist Signature Calcium Lvl 9.1 8.4 - 10.2 [facility] mg/dL [facility] Specimen Anatomical Collection Method Collection Time Receive d Time (Source) Location / / Volume Laterality Blood 10/24/2021 5:53 AM 2 6:21 CDT AM CDT Ronnie Tolentino MD LAB BLOOD ORDERABLES Performing Organization Address City/[facility] Phon e Number [facility] CANCER Unless otherwise noted, [address] all lab tests performed by: Division of Pathology and Laboratory Medicine [address] [place] Albumin Level (10/24/2021 5:53 AM CDT)Only the most recent of11 resultswithin the time period is included. P athologist Signature Albumin Lvl 3.6 3.5 - 5.2 [facility] gm/dL [facility] Specimen Anatomical Collection Method Collection Time Receive d Time (Source) Location / / Volume Laterality Blood 10/24/2021 5:53 AM 2 6:21 CDT AM CDT Ronnie Tolentino MD LAB BLOOD ORDERABLES Performing Organization Address City/[facility]/ZIP [facility] Phon e Number [facility] Unless otherwise noted, [address] all lab tests performed by: Division of Pathology and Laboratory Medicine [address] [place] [address] Electrolyte Panel (10/24/2021 5:53 AM CDT)Only the most recent of12 results within the time period is included. athologist [facility] Sodium Lvl 141 136 - 145 [facility] mEq/L [facility] Potassium Lvl 4.3 3.5 - 5.1 [facility] mEq/L [facility] Chloride 106 98 - 107 [facility] mEq/L [facility] CO2 23 22 - 29 [facility] mEq/L [facility] Anion Gap 12 4 - 14 [facility] mEq/L [facility] Specimen Anatomical Collection Method Collection Time Receive d Time (Source) Location / / Volume Laterality Blood 10/24/2021 5:53 AM 2 6:21 CDT AM CDT Ronnie Tolentino MD LAB BLOOD ORDERABLES Performing Organization Address City/[facility] Phon e Number [facility] CANCER Unless otherwise noted, [address] all lab tests performed by: Division of Pathology and Laboratory Medicine [address] [place] [address] (ABNORMAL) IgG Subclasses (10/22/2021 6:48 AM CDT) athologist [facility] IgG Total-Mondovi 830 767 - 1590 [facility] mg/dL [facility] IgG1-Mondovi 418 341 - 894 [place] MD [place] mg/dL [facility] IgG2-Mondovi 157 (L) 171 - 632 [facility] mg/dL [facility] IgG3-Mondovi 56.8 18.4 - AL MD [place] 106.0 [facility] mg/dL IgG4-Mondovi 8.8 2.4 - AL MD [place] 121.0 [facility] mg/dL Comment: Test Performed by: [facility] [address] [place], [place] [address] Customer Resolution Specialist: Chato Johnson M.D. Ph. D.; CLIA# [id number] Specimen Anatomical Collection Method Collection Time Receive d Time (Source) Location / / Volume Laterality Blood 10/22/2021 6:48 AM 2 7:34 CDT AM CDT Ronnie Tolentino MD LAB BLOOD ORDERABLES Performing Organization Address City/[facility]/ZIP Code Phon e Number [facility]ER Unless otherwise noted, [address] all lab tests performed by: Division of Pathology and Laboratory Medicine [address] [place], [place] [address]d IgA (10/22/2021 6:48 AM CDT) P athologist Signature IgA 191 85 - 499 [facility] mg/dL [facility] Specimen Anatomical Collection Method Collection Time Receive d Time (Source) Location / / Volume Laterality Blood 10/22/2021 6:48 AM 2 7:15 CDT AM CDT Ronnie Tolentino MD LAB BLOOD ORDERABLES Performing Organization Address City/[facility]/ZIP [facility] Phon e Number [facility] Unless otherwise noted, [address] all lab tests performed by: Division of Pathology and Laboratory Medicine [address] [place], [place] [address] IgG (10/22/2021 6:48 AM CDT) athologist Signature IgG 751 610 - 1,616 [facility] mg/dL [facility] Specimen Anatomical Collection Method Collection Time Receive d Time (Source) Location / / Volume Laterality Blood 10/22/2021 6:48 AM 2 7:15 CDT AM CDT Ronnie Tolentino MD LAB BLOOD ORDERABLES Performing Organization Address City/[facility]/ZIP [facility] Phon e Number [facility] Unless otherwise noted, [address] all lab tests performed by: Division of Pathology and Laboratory Medicine [address] [place] [address] X-ray Chest 1 View (10/21/2021 3:44 PM [...] Component Value Ref Test Analysis Performed At [facility] Range Method Time Signature Final Report No growth [facility] Path Review - Culture yield may be affecte d by sample quality, prior treatment, and transportation conditions. AL Bottle/Isolat ..Yancy PERRY or The results have been reviewed and electronically signed b y Pathologist: JOSH Mercado MD, PhD #[id number] [facility] Specimen Anatomical Collection Method Collection Time Receive d Time (Source) Location / / Volume Laterality Blood 10/21/2021 9:09 AM 2 (Venipuncture-Le CDT 10:21 AM CD T ft) Comment: arm Ronnie Tolentino MD MICROBIOLOGY - GENERAL ORDER TAWANNA Performing Organization Address City/[facility]/ZIP [facility] Phon e Number [facility] Unless otherwise noted, [address] all lab tests performed by: Division of Pathology and Laboratory Medicine [address] [place] [address] Fungal Blood Culture (10/21/2021 9:09 AM CDT) Component Value Ref Test Analysis Performed At [facility] gist Range Method Time Signature Final Report No Fungi isolated. [facility] Path Review - Culture yield may be affecte d by sample quality, prior treatment, and transportation conditions. AL Fungus The results have been reviewed and elect ronically signed by Pathologist: ORLANDO ZABALA MD #[id number] [facility] Specimen Anatomical Collection Method Collection Time Receive d Time (Source) Location / / Volume Laterality Blood 10/21/2021 9:09 AM 2 (Venipuncture-Le CDT 10:39 AM CD T ft) Comment: arm Ronnie Tolentino MD MICROBIOLOGY - GENERAL ORDER TAWANNA Performing Organization Address [facility] Phon e Number [facility] Unless otherwise noted, [address] all lab tests performed by: Division of Pathology and Laboratory Medicine [facility]5 [facility] E[facility], 12-Lead (10/21/2021)Only the most recent of4 resultswithin the time period is included. Specimen (Source) Anatomical Location Collection Method / Collectio n Time Received Time / Laterality Volume Narrative This result has an attachment that is no t available. Ronnie Tolentino MD ECG ORDERABLES Performing Organization Address [facility]/ZIP [facility] Phon e Number [place] IECG XR Abdomen [...] of the osseous structures. Ronnie Tolentino MD [facility] [place]NOST[facility]AGING ORDER [place] Pathology Biopsy Interpretation (10/19/2021 1:35 PM CDT) Component Value Ref Test Analysis Performed Pathologis t Range Method Time At Signature Submitted Swallowing painful 10/22/2021 [facility] Clinical [R13.19] 10:30 AM History CDT Diagnosis A. Esophagus, biopsy: 10/22/2021 [facility] Electronically Changes morphologically consistent with Tati esophagitis 10:30 AM signed by CDT Manuela real MD on 10/23/19 at 10:30 AM Gross A: 10/22/2021 [facility] Description Esophagus, esophagus r/o can dida and esophagitis: One piedra-brown fragment of soft tissue measuring 0.4 cm, admixed with probable plant material, entirely submitted in A1. GM 10:30 AM CDT Disclaimer "Some tests 10/22/2021 [facility] reported here may 10:30 AM have been CDT developed and performance characteristics determined by [facility]. These tests have [...] Organization Address City/State/ZIP Code Phon e Number [facility] [address] (ABNORMAL) POC Glucose Screen (10/18/2021 6:47 AM [...] Sample Type Capillary POC TELCOR Performing Lab [facility] POC TELCO R Comment: [facility], [address] [place] [address], [place] [address]; Lab Direct or: Karma Arciniega MD Specimen Anatomical Collection Method Collection Time Receive d Time (Source) Location / / Volume Laterality Blood 10/18/2021 6:47 AM 2 6:47 CDT AM CDT Ronnie Tolentino MD POCT ORDERABLES - DEVICE Performing Organization Address City/[facility]/ZIP Code Phon e Number POC TELCOR Vancomycin Trough Vancomycin trough on 10/17/21@10:30AM. Nurse please coordinate with lab to draw trough approximately 11 - 11.5hours after 10/16/21 evening vanco dose. Hold vancomycin doses if trough isgreater than 20 and notify . Thanks! (10/17/2021 11:50 AM CDT) athologist Signature Vanco Trough 6.0 5.0 - 20.0 [facility] mcg/mL [facility] Comment: Toxic Trough Level: >20 mcg/mL Vanco Tr Dose Time See note AL MD LEVI BARON [facility] Comment: Level, date, and time of previous dose i s not available for this sample. The date reported is e sample collection date. Vanco Tr Dose Date 10/17/2021 AL MD EMIGDIO UPTON [facility] Comment: Level, date, and time of previous dose i s not available for this sample. The date reported is e sample collection date. Specimen Anatomical Collection Method Collection Time Receive d Time (Source) Location / / Volume Laterality Blood 10/17/2021 11:50 10/17/2021 AM CDT 12:36 PM CDT Narrative [facility] - 2 1:05 PM CDT Vancomycin trough on 10/17/21@10:30AM. Nu rse please coordinate with lab to draw trough approximately 11 - 11.5hours after evening vanco dose. Hold vancomycin doses if trough is greater than 20 and notify . Thanks! Ronnie Tolentino MD LAB BLOOD ORDERABLES Performing Organization Address City/State/ZIP Code Phon e Number [facility] CANCER Unless otherwise noted, [place] [address] [place] all lab tests performed by: Division of Pathology and Laboratory Medicine [facility] (ABNORMAL) Fungitell, Serum (10/17/2021 3:59 AM CDT)Only the most recent of2 resultswithin the time period is included. athologist Signature Fungitell S-V 101 (H) <80 pg/mL [facility] Comment: Interpretation: The Fungitell assay does not detect certain fungal species such as the genus Cryptococcus ( Marcelino et al. 1991) which produces very low levels of (1-3)-Beta-D -Glucan. The assay also does not detect the Zygomycetes such as Absid ia, Mucor and Rhizopus (Henrry et al. 1994) which are not know n to produce (1-3)-Leru-W-Eiikgs. In addition, the ye ast phase of [...] cleared for in vitro diagnostic use by [facility] U.[place] Food and Drug Administration. Modifications to the keerthi roved package insert have been made and the performance characteri stics for these modifications were determined by [employer]. If sample result is greater than 500 pg/ mL, physician may order a titer of the sample. Please contact [employer] if you would like to order a retest of this sample to obtain an actual value. Samples are held for 1 week after initia l testing date. Performed At: [facility] [address] [place] [address] Document Preparation Specialist: Andi Taylor Ph.D., B CLD (ABB) CLIA#: [id number] Phone: Specimen Anatomical Collection Method Collection Time Receive d Time (Source) Location / / Volume Laterality Blood 10/17/2021 3:59 AM 04/20/202 2 CDT 10:49 AM CDT Ronnie Tolentino MD MICROBIOLOGY - GENERAL ORDER [place]NA Performing Organization Address City/[facility] Phon e Number [facility] CANCER Unless otherwise noted, [address] all lab tests performed by: Division of Pathology and Laboratory Medicine [address] [place] [address] Procalcitonin (10/17/2021 3:59 AM CDT)Only the most recent of2 resultswithin the time period is included. athologist Signature Procalcitonin <0.04 <=0.08 [facility] ng/mL [facility] Comment: Procalcitonin > [...] with extended dilution as it exceeds the people greeter's recommended limit. Caution should be exercised when interpreting such values and done in conjunction with clinical context. Specimen Anatomical Collection Method Collection Time Receive d Time (Source) Location / / Volume Laterality Blood 10/17/2021 3:59 AM 2 5:36 CDT AM CDT Ronnie Tolentino MD LAB BLOOD ORDERABLES Performing Organization Address [facility] Phon e Number [facility] CANCER Unless otherwise noted, [address] all lab tests performed by: Division of Pathology and Laboratory Medicine [address] [place] [address] [place] Modified Barium Swallow w Speech (10/16/2021 [...] IMG FLUOROSCOPY ORDERABLES (ABNORMAL) Respiratory PCR Panel, VOCATIONAL COORDINATOR Swab (10/16/2021 8:05 AM CDT) [facility] Method Time Signature Adenovirus Not Not [place] MD Detected Detected [facility] Coronavirus 229E Not Not [place] MD Detected Detected [facility] Coronavirus HKU1 Not Not [place] MD Detected Detected [facility] Coronavirus NL63 Not Not [facility] MD Detected Detected [facility] Coronavirus OC43 Not Not [place] MD Detected Detected [facility] Human Not Not [place] MD Metapneumovirus Detected Detected [facility] Human Detected Not [place] MD Rhinovirus/Enterov (A) Detected [facility] Influenza A Not Not [place] MD Detected Detected [facility] Influenza A H1 Not Not [place] MD Detected Detected [facility] Influenza A H1 Not Not [place] MD [address] [facility] Influenza A H3 Not Not [place] MD Detected Detected [facility] Influenza B Not Not [place] MD Detected Detected [facility] Parainfluenza 1 Not Not [facility] MD Detected Detected [facility] Parainfluenza 2 Not Not [facility] MD Detected Detected [facility] Parainfluenza 3 Not Not [facility] MD Detected Detected [facility] Parainfluenza 4 Not Not [place] MD Detected Detected [facility] Respiratory Not Not [place] MD Syncytial Virus Detected Detected [facility] Bordetella Not Not [place] MD pertussis Detected Detected [facility] Chlamydiophila Not Not UT MD pneumoniae Detected Detected [facility] Mycoplasma Not Not [place] MD pneumoniae Detected Detected [facility] Specimen (Source) Anatomical Collection Method Collection Time Re ceived Time Location / / Volume Laterality Nasopharyngeal Swab 10/16/2021 8:05 10/18 AM CDT 8:06 AM CDT Ronnie Tolentino MD MICROBIOLOGY - GENERAL ORDER [place] Performing Organization Address City/State/ZIP Code Phon e Number [facility] CANCER Unless otherwise noted, [address] all lab tests performed by: Division of Pathology and Laboratory Medicine [facility] [address] Respiratory PCR Panel Path Review (10/16/2021 8:05 AM CDT) [facility] Method Time Signature RMP [place] Reviewed and Electronically signed by Pathologist: AL MD Darnell Reddy MD, PhD #[id number] [facility] Comment: Performed by real-time PCR methodology. This [...] - GENERAL ORDER TAWANNA Performing Organization Address City/[facility]/ZIP Code Phon e Number [facility]CER Unless otherwise noted, [address] all lab tests performed by: Division of Pathology and Laboratory Medicine [facility] [address] MRSA Screening Culture (10/15/2021 4:25 PM CDT) Component Value Ref Test Analysis Performed At [facility] Range Method Time Signature Final Report No Methicillin [facility] Staphylococcus [facility] aureus isolated. [place] Path Review The results have been review ed and electronically signed by Pathologist: AL MD Darnell Reddy MD, PhD #[id number] [facility] Specimen Anatomical Collection Method Collection Time Receive d Time (Source) Location / / Volume Laterality Nasal 10/15/2021 4:25 PM 6:59 CDT PM CDT Felix Bazzi MD MICROBIOLOGY - GENERAL ORDER [place] Performing Organization Address City/State/ZIP Code Phon e Number [facility] CANCER Unless otherwise noted, [address] all lab tests performed by: Division of Pathology and Laboratory Medicine [address] [place], [place] [address] (ABNORMAL) Troponin T (In-House) (10/15/2021 1:15 PM CDT)Only the most recent of 5 resultswithin the time period is included. P athologist Signature Troponin T 23 (H) <=18 ng/L [facility] [place] Comment: < 19 ng/L Suggest retest at [...] Organization Address City/State/ZIP Code Phon e Number [facility]CER Unless otherwise noted, [place] [address] [place] all lab tests performed by: Division of Pathology and Laboratory Medicine [address] [place] [address] CT Chest Pulmonary Embolism with Contrast (10/15/2021 [...] Performed At Patholo gist Range Method Time [facility] Legionella Reviewed and Electronically signed by Pathologist: [place] Urine Antigen Darnell Reddy MD, PhD #[id number] [facility]CER [place] Comment: DARNELL REDDY MD, PhD - [id number] Dictated by: DARNELL REDDY MD, PhD - [id number] Dictated Date/Time: 10.17.2021 10:56 AM CDT Transcribed Date/Time: 10.17.2021 10:56 AM CDT Electronically Signed By: DARNELL REDDY MD, PhD - [id number] on 10.17.2021 10:56 AM Specimen Anatomical Collection Method Collection Time Receive d Time (Source) Location / / Volume Laterality Urine 10/15/2021 12:17 10/16/2021 PM CDT 11:26 AM CDT Verónica Thakkar MD MICROBIOLOGY - GENERAL ORDER [place]NA Performing Organization Address City/State/ZIP Code Phon e Number [facility]CER Unless otherwise noted, [place] [address] [place] all lab tests performed by: Division of Pathology and Laboratory Medicine [address] [place] [address] [place] Streptococcal Urine Antigen Path Review (10/15/2021 12:17 PM CDT)Only the most recent of2 resultswithin the time period is included. Component Value Ref Test Analysis Performed Pathologis t Range Method Time At [facility] Streptococcal Reviewed and Electronically signed by Pathologist: CRISS CARDENAS Urine Antigen Darnell Reddy MD, PhD #[id number] [facility]ER [place] Comment: DARNELL REDDY MD, PhD - [id number] Dictated by: DARNELL REDDY MD, PhD - [id number] Dictated Date/Time: 10.16.2021 13:06 PM CDT Transcribed Date/Time: 10.16.2021 13:06 PM CDT Electronically Signed By: DARNELL REDDY MD, PhD - [id number] on 10.16.2021 13:06 PM Specimen Anatomical Collection Method Collection Time Receive d Time (Source) Location / / Volume Laterality Urine 10/15/2021 12:17 10/16/2021 PM CDT 11:26 AM CDT Verónica Thakkar MD MICROBIOLOGY - GENERAL ORDER [place]NA Performing Organization Address City/State/[facility] Phon e Number [facility] CANCER Unless otherwise noted, [address] all lab tests performed by: Division of Pathology and Laboratory Medicine [address] [place] [address] Streptococcus pneumoniae Urine Antigen (10/15/2021 12:17 PM CDT)Only the most recent of2 resultswithin the time period is included. Component Value Ref Range Test Analysis Performed Pathologis t Method Time At [facility] Streptococcal Presumptive negative for S. pneumoniae antigen in the urine, suggesting no current or recent pneumococcal infection. However, infection due to S. pneumoniae cannot be completely ruled out since the leve Negative CRISS CARDENAS Urine Antigen l of antigen present in the urine may be below the AVA Interpretation detection limit of the test. [facility] Streptococcal Negative Negative CRISS CARDENAS Urine Antigen [place] Interpretation [facility] Specimen Anatomical Collection Method Collection Time Receive d Time (Source) Location / / Volume Laterality Urine 10/15/2021 12:17 10/15/2021 2:23 PM CDT PM CDT Verónica Thakkar MD MICROBIOLOGY - GENERAL ORDER [place] Performing Organization Address City/State/ZIP Code Phon e Number [facility] Unless otherwise noted, [address] all lab tests performed by: Division of Pathology and Laboratory Medicine [address] [facility] Legionella Urine Antigen (10/15/2021 12:17 PM CDT)Only the most recent of2 resultswithin the time period is included. Component Value Ref Test Analysis Performed At [facility] Range Method Time Signature Legionella Urine Negative for L. pneumophila serogroup 1 antigen, suggesting no recent or current infection. However, infections due to other serogroups and species of Legionella are not detected by this assay. In addition, antigen may not be present in the urine in [place] Antigen early infection and the leve l of antigen present in the urine may be below the detection limit of the test. AN [facility] CENTER Legionella Urine Negative [facility] Antigen [facility] Specimen Anatomical Collection Method Collection Time Receive d Time (Source) Location / / Volume Laterality Urine 10/15/2021 12:17 10/15/2021 2:23 PM CDT PM CDT Verónica Thakkar MD MICROBIOLOGY - GENERAL ORDER TAWANNA Performing Organization Address City/State/ZIP Code Phon e Number [facility] Unless otherwise noted, [place], [place] [id number] [place] [address] all lab tests performed by: Division of Pathology and Laboratory Medicine [address] [facility] COVID-19 (SARS-CoV-2)Asymptomatic-LT (10/15/2021 10:08 AM CDT) [facility] Method [place] Signature COVID19 Not Detected Not Detected CRISS CARDENAS (SARS-CoV-2) [facility] COVID19 SARS Inpatient [facility] Indication Admission [facility] Covid 19 See Note [place] Comment [facility] Comment: The kacy SARS-CoV-2 nucleic acid test [...] fact sheet for patients provided by the people greeter ([employer]) can be reviewed at: https://www.fda.gov/media/456216/yanique laureano A fact sheet for Health Care providers is provided by the people greeter ([employer]) and can be reviewed at: https://www.fda.gov/media/784499/download Results must be interpreted within the c [...] This assay has been authorized by the [facility] for use only under Emergency Use Authorization (EUA) in laboratories that have been CLIA-certified to perform moderate-complexity and high-complexity tests. The Microbiology Laboratory at [facility], CLIA Accreditation #[id number] a sc CAP Accreditation #[id number], verified the performance characteristics of this assay. Internal controls are used to monitor all stages of the test process. Specimen (Source) Anatomical Collection Method Collection Time Re ceived Time Location / / Volume Laterality Nasopharyngeal Swab 10/15/2021 10:08 09/28 AM CDT 10:30 AM CDT Verónica Thakkar MD MICROBIOLOGY - GENERAL ORDER TAWANNA Performing Organization Address City/State/ZIP Code Phon e Number [facility] Unless otherwise noted, [place] [address] [place] all lab tests performed by: Division of Pathology and Laboratory Medicine [facility] [place] (ABNORMAL) Lower Respiratory Culture w/Gram Stain (10/15/2021 10:08 AM CDT)Only the most recent of2 resultswithin the time period is included. Component Value Ref Test Analysis Performed At [facility] gist Range Method Time Signature Final Report Moderate Presumptive Streptococcus pneumoniae CRISS CARDENAS ... [place] Normal site home present. CAN CER (A) CENTER Path Review The results have been review ed and electronically signed by Pathologist: CRISS Reddy MD, PhD #[id number] AVA () [facility] Gram Stain Few WBC's seen CRISS CARDENAS Report Epithelial cells seen AVA Few Gram Positive Cocci in pairs CANCER (A) [place] Organism Streptococcus CRISS CARDENAS pneumoniae (A) [facility] Specimen Anatomical Collection Method Collection Time Receive [...] Organization Address City/State/ZIP Code Phon e Number [facility] Unless otherwise noted, [address] all lab tests performed by: Division of Pathology and Laboratory Medicine [facility] Doylewilber Jones aPTT (10/15/2021 10:08 AM CDT) athologist Signature aPTT 29.9 24.7 - 36.8 [facility](s) [facility] Specimen Anatomical Collection Method Collection Time Receive d Time (Source) Location / / Volume Laterality Blood 10/15/2021 10:08 10/15/2021 AM CDT 10:19 AM CDT Verónica Thakkar MD LAB BLOOD ORDERABLES Performing Organization Address City/[facility] Phon e Number [facility] Unless otherwise noted, [address] all lab tests performed by: Division of Pathology and Laboratory Medicine [address] [place] [address] [place] (ABNORMAL) NT-Pro BNP (In-House) (10/15/2021 10:08 AM CDT)Only the most recent of2 resultswithin the time period is included. athologist Signature NT ProBNP 137 (H) <=125 pg/mL [facility] Specimen Anatomical Collection Method Collection Time Receive d Time (Source) Location / / Volume Laterality Blood 10/15/2021 10:08 10/15/2021 AM CDT 11:00 AM CDT Verónica Thakkar MD LAB BLOOD ORDERABLES Performing Organization Address City/[facility]/ZIP Code Phon e Number [facility] Unless otherwise noted, [address] all lab tests performed by: Division of Pathology and Laboratory Medicine [address] [place] [address] [place] (ABNORMAL) Prothrombin Time with INR (10/15/2021 10:08 AM CDT) athologist Signature PT 13.5 11.5 - 13.9 [facility](s) CANCER CENTER INR 1.11 (H) 0.90 - 1.10 [facility] Specimen Anatomical Collection Method Collection Time Receive d Time (Source) Location / / Volume Laterality Blood 10/15/2021 10:08 10/15/2021 AM CDT 10:19 AM CDT Verónica Thakkar MD LAB BLOOD ORDERABLES Performing Organization Address City/[facility]/ZIP Code Phon e Number [facility] Unless otherwise noted, [address] all lab tests performed by: Division of Pathology and Laboratory Medicine [address] [place], [place] [address] (ABNORMAL) LDH (10/15/2021 10:08 AM CDT) athologist Signature LDH 247 (H) 135 - 225 [facility] U/L [facility] Comment: Results greater than 1651 U/L [...] MD LAB BLOOD ORDERABLES Performing Organization Address City/[facility]/ZIP Code Phon e Number [facility] Unless otherwise noted, [address] all lab tests performed by: Division of Pathology and Laboratory Medicine [address] [place] [address] CKMB (10/15/2021 10:08 AM CDT)Only the most recent of2 resultswithin the time period is included. athologist Signature CK MB 2.2 <=10.4 [facility] ng/mL CANCER CENTER Specimen Anatomical Collection Method Collection Time Receive d Time (Source) Location / / Volume Laterality Blood 10/15/2021 10:08 10/15/2021 AM CDT 11:00 AM CDT Verónica Thakkar MD LAB BLOOD ORDERABLES Performing Organization Address City/State/ZIP Code Phon e Number [place] [facility] [facility] Unless otherwise noted, [address] all lab tests performed by: Division of Pathology and Laboratory Medicine [address] [place] [address] Creatine Kinase (10/15/2021 10:08 AM CDT)Only the most recent of2 resultswithin the time period is included. P athologist Signature CK 48 39 - 308 [place] MD PERRY U/L [facility] Specimen Anatomical Collection Method Collection Time Receive d Time (Source) Location / / Volume Laterality Blood 10/15/2021 10:08 10/15/2021 AM CDT 11:00 AM CDT Verónica Thakkar MD LAB BLOOD ORDERABLES Performing Organization Address City/State/ZIP Code Phon e Number [place] [facility] Unless otherwise noted, [address] all lab tests performed by: Division of Pathology and Laboratory Medicine [address] [place] [address] (ABNORMAL) Respiratory Viral Panel + COVID-19, Nasopharyngeal Swab (09/03/2021 5:14 PM MACHINE PRINTER HOSE) [facility] gist Method Time Signature Adenovirus Not Not [place] Detected Detected [facility] Coronavirus 229E Not Not [place] Detected Detected [facility] Coronavirus HKU1 Detected Not [place] (A) Detected [facility] Coronavirus NL63 Not Not [place] Detected Detected [facility] Coronavirus OC43 Not Not [place] Detected Detected [facility] COVID19 Not Not [place] (SARS-CoV-2) Detected Detected [facility] Human Not Not [place] Metapneumovirus Detected Detected [facility] Human Not Not [place] Rhinovirus/Enterov Detected Detected [facility] Influenza A Not Not [place] Detected Detected [facility] Influenza A H1 Not Not [place] Detected Detected [facility] Influenza A H1 Not Not [place] 2008 Detected Detected [facility] Influenza A H3 Not Not [place] Detected Detected [facility] Influenza B Not Not [place] Detected Detected [facility] Parainfluenza 1 Not Not [place] Detected Detected [facility] Parainfluenza 2 Not Not [place] MD Detected Detected [facility] Parainfluenza 3 Not Not [place] MD Detected Detected [facility] Parainfluenza 4 Not Not [place] MD Detected Detected [facility] Respiratory Not Not [place] MD Syncytial Virus Detected Detected [facility] Bordetella Not Not [place] MD Parapertussis Detected Detected [facility] Bordetella Not Not [place] MD pertussis Detected Detected [facility] Chlamydiophila Not Not [place] MD pneumoniae Detected Detected [facility] Mycoplasma Not Not [place] MD pneumoniae Detected Detected [facility] Specimen (Source) Anatomical Collection Method Collection Time Re ceived Time Location / / Volume Laterality Nasopharyngeal Swab 09/03/2021 5:14 09/03 PM MACHINE PRINTER HOSE 5:51 PM MACHINE PRINTER HOSE Narrative [place] MD [facility] - 7:19 PM MACHINE PRINTER HOSE The BioFire RP2.1 is a real-time, nested multiplexed polymerase chain reaction test designed to simul taneously identify nucleic acids from 22 different viruses and bacteria associated with respiratory tract infection, including SARS-CoV-2, from a single nasopharyngeal swab ([employer]) specimen obtai missy from individuals suspected of [...] that may not be detected by an [employer] specimen. Internal controls are used to monitor [...] and high-complexity tests. The Microbiology Laboratory at [facility], CLIA Accreditation #[id number] and CAP Accreditation #[id number], verified the per formance characteristics of this assay. Microbiology Laboratory at [facility] performs the assay using the [facility]. Jyoti Morales MD MICROBIOLOGY - GENERAL ORDER TAWANNA Performing Organization Address City/State/ZIP Code Phon e Number [facility] Unless otherwise noted, [place] [address] CENTER all lab tests performed by: Division of Pathology and Laboratory Medicine [address] [facility] [address] Chest with Contrast (08/13/2021 8:15 AM MACHINE PRINTER HOSE) Anatomical Region Laterality Modality Chest Computed Tomography Specimen (Source) Anatomical Collection Method Collection Time Re ceived Time Location / / Volume Laterality 08/13/2021 8:41 AM MACHINE PRINTER HOSE Impressions 08/13/2021 8:58 AM MACHINE PRINTER HOSE * Stable post therapeutic changes in the right lung. No recurrent or metastatic disease. Narrative 08/13/2021 8:58 AM MACHINE PRINTER HOSE FULL RESULT: Examination: CT CHEST W CONTRAST, [...] recurrent or metastatic disease. Nicole Del Rosario VOCATIONAL COORDINATOR IMG CT ORDERABLES POC Creatinine (08/13/2021 7:30 AM MACHINE PRINTER HOSE) P athologist Signature POC Crea 0.6 0.6 [...] Clean Dev Yes POC TELCOR Performing Lab [facility] POC TELCO R Comment: [facility], [address] [place] [id number]; Lab Direct or: Karma Arciniega MD Specimen Anatomical Collection Method Collection Time Receive d Time (Source) Location / / Volume Laterality Blood 08/13/2021 7:30 AM 7:30 MACHINE PRINTER HOSE AM MACHINE PRINTER HOSE Nicole Del Rosario NP POCT ORDERABLES - DEVICE Performing Organization Address City/State/ZIP Code Phon e Number POC TELCOR after 04/23/2021 Insurance Payer Benefit Plan / Subscriber ID Effective Phone Address T ype Group Dates [employer]LL[employer] WELLCARE [id number] 2020-Marisa [address] 72 Medicare MEDICARE MEDICARE [place], [place] ADVANTAGE ADVANTAGE [id number] Guarantor Name Account Type Relation to Date of Phone Billing Patient Address Josh,[place] Personal/Family Self 1955 [id number]) [facility] [address] [phone] 1 (Work) [employer] [id number] Chato Moreno Personal/Family Self 1955 [id number] [place] [address] Advance Directives Code Status Date Activated Date Inactivated Comments Full Code 10/15/2021 2:23 PM 10/24/2021 8:32 PM Full Code 09/03/2021 10:00 PM 09/07/2021 5:51 PM Full Code 02/16/2021 11:33 PM 03/02/2021 8:45 PM Full Code 01/22/2021 1:08 AM 01/30/2021 8:41 PM Full Code 01/04/2021 3:56 PM 01/19/2021 6:53 PM Care Teams Television Production Clerk Relationship Specialty Start Date End Date Carl Jones MD PCP - External Primary Family Practice 02/14/20 [address] [facility] Care Provider [place] [address] [place] [phone] Henrique Plasencia MD PCP - General Thoracic Medicine 04/21/[address] [place] [id number] Kang Piedra MD PCP - External Follow Up Dermatology 06/12/[address] [place] [id number]
--- OUTSIDE RECORDS SUMMARY | 2022-04-23 11:29 | XMS REPORT | Continuity of Care Document ---
:1955 Author Organization [facility] t Address [address] [place] [address] Care Team Providers Name Role Phone [phone] Primary Care Physician Unavailable SYSTEM, PROVIDER NOT IN Attending Clinician Unavailable Lazaro ROUSSEAU, Constantine Attending Clinician Padmini CARDENAS, Maria Fernanda [...] Attending Clinician Judy CARDENAS, Ed Attending Clinician Maria Luisa CARDENAS, Tod Fu Attending Clinician Alexus CARDENAS, Boni Carr Attending Clinician [phone] Jackson JARAMILLO, Arcadio Attending Clinician Unavailable BONI OBRIEN Attending Clinician Unavailable Aisha CARDENAS, Edwige Orozco Attending Clinician Jenise Degroot MD Attending Clinician Dhiraj Fry CRNA Attending Clinician Jacquelyn CARDENAS, Shena Gudino Attending Clinician Unavailable TOD GLASS V. Attending Clinician Unavailable MARIA FERNANDA WASHINGTON V. Attending Clinician Unavailable JUDY, BEA Attending Clinician Unavailable Shantal Patiño MD, Deshawn Attending Clinician [phone] Dean JARAMILLO, Stella Stewart Attending Clinician Unavailable Price JARAMILLO, Ileana Ann Attending Clinician Unavailable Aisha CARDENAS, Mehrdad Attending Clinician Gurpreet Estes MD Attending Clinician DANISH HART Attending Clinician Unavailable Michael Lopez RN Attending Clinician Unavailable Lela Sanon APN Attending Clinician Mamadou JARAMILLO, Zulema Ramírez Attending Clinician Unavailable Tadeo CARDENAS, Herrera Attending Clinician Solo WITT, Jacki Attending Clinician Gucci ROUTE JUMPER, Sarah Ybarra Attending Clinician Raymundo Marr MD Attending Clinician Nicole Del Rosario NP Attending Clinician Abdirizak Fenton MD Attending Clinician Génesis Farias RN Attending Clinician Unavailable Anais JARAMILLO, Génesis Trevino Attending Clinician Unavailable Andrea ROUSSEAU, Jackie Attending Clinician Yudith Rivas RN Attending Clinician Unavailable Crista CARDENAS, Claude Attending Clinician Elmira Lanier APN Attending Clinician Giovanna Javed MD Attending Clinician Sravan [facility], Mary Beth Ann Attending Clinician Unavailable Rah CARDENAS, Herrera Attending Clinician Enzo PharmD, Wayne Attending Clinician Brandon JARAMILLO, Juan Lehman Attending Clinician Unavailable Lisa JARAMILLO, Gurpreet Ramírez Attending Clinician Unavailable Pineda WITT, Gabrielle Owens Attending Clinician Tejinder CHAPPELL, Alina Attending Clinician [...] Clinician Unavailable GURPREET ESTES Attending Clinician Unavailable RAYMUNDO MARR Attending Clinician Unavailable RUSSELL GIRALDO Attending Clinician Unavailable JACKSON LIND Attending Clinician Unavailable UNKNOWN, ATTENDING Attending Clinician Unavailable HERRERA PIEDRA Attending Clinician Unavailable ROCKY RODRIGUEZ Attending Clinician Unavailable CODY CRANE Attending Clinician Unavailable AURELIANO EDWARD Attending Clinician Unavailable ORACIO REECE Attending Clinician Unavailable WILFREDO OLIVAS Attending Clinician Unavailable MAURICIO MAY Attending Clinician Unavailable HAYLEY TAPIA Attending Clinician Unavailable Dhiraj Jaimes Attending Clinician Unavailable THELMA BOWSER Admitting Clinician Unavailable MEHRDAD ROD Admitting Clinician Unavailable CLAUDE TOBIN Admitting Clinician Unavailable TOD GLASS V. 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 Center Added automatic ally from request for surgery [id number] Family Family Disease Active 2020-06 Univers education education 1-09 it[place] of about pain about [place] management management 00 MD Fuentes zimmerman [facility] History of History of Disease Recurre Univers radiation radiation nce 8-20 ity of therapy therapy 00:00: [place] 00 MD Fuentes zimmerman [facility] Pressure-i Pressure-i Disease Active Overview : Univers nduced nduced 7-09 Formattin ity of deep deep 00:00: g of this [place] tissue tissue 00 note damage of damage of might be An derso other site other site different n from the Cancer original. Center Site: Coccyx Sepsis Sepsis Disease Active Univers 7-08 ity of 00:00: [place] 00 MD Fuentes zimmerman [facility] Pulmonary Pulmonary Disease Active Uni vers embolism embolism 5-21 ity of 00:00: [place] 00 MD Fuentes zimmerman [facility] Stage 1 Stage 1 Disease Active Overview: Univ ers pressure pressure 5-18 Formattin ity of ulcer of ulcer of 00:00: g of this [place] as other site other site 00 note might be Anderso different n from the Cancer original. 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 Sequelae Sequelae Disease Active Unive rs of of 4-11 ity of hyperalime hyperalime 00:00[place] ntation ntation [address] [facility] Adverse Adverse Disease Active Univers effect of effect of 3-23 ity of glucocorti glucocorti 00:00[place] coids and coids and 00 synthetic synthetic [place] rso analogues analogues [facility] Current Current Disease Active Univers use of use of 3-23 ity of insulin insulin 00:00: [place] 00 MD Fuentes zimmerman [facility] Anxiety Anxiety Disease Active Univers disorder disorder 3-17 ity of due to a due to a 00:00: [place] general general 00 medical medical Andmiguel condition condition [facility] Disorder Disorder Disease Active Unive rs of fluid of fluid 3-08 ity of AND/OR AND/OR 00:00: [place] electrolyt electrolyt 00 [facility] Sinus Sinus Disease Active Univers tachycardi tachycardi 3-08 it y of a a 00:00: [place] 00 MD Fuentes zimmerman [facility] Pleuritic Pleuritic Disease Active Uni vers pain pain 2-26 ity of 00:00: [place] [address] [facility] Anemia of Anemia of Disease Recurre Un yakov chronic chronic nce 2-22 ity of disease disease 00:00: [place] 00 MD Fuentes zimmerman [facility] Acute and Acute and Disease Active Uni vers chronic chronic 2-22 ity of respirator respirator [place] y failure y failure 00 with with Fuentes hypoxia hypoxia 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 An derso on on n [facility] Center Dyspnea Dyspnea Disease Active Univers 2-11 ity of 00:00: [place] 00 MD Fuentes [facility] Center Decompensa Decompensa Disease Active U nivers lakhwinder COPD lakhwinder COPD 1-31 ity of with acute with acute 00:00[place] exacerbati exacerbati 00 MD on on Fuentes zimmerman [facility] Center intermediate 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 tender prison Disease Recurre Un yakov current current nce 1-31 ity of use of use of 00:00: [...] Univers emphysema emphysema ity of [facility] Adjustment Adjustment Disease Recurre Univers disorder [...] [place] on on [place] [facility] Other Other Disease Active Univers psychologi psychologi it y of tracy or tracy or [place] physical physical stress, stress, Anderso not not n elsewhere elsewhere Canc er classified classified Ce nter Personal Personal Disease Recurre Univ ers history of history of nce it y of COVID-19 COVID-19 [facility] Center Acute Acute Disease Resolve 2021-09-04 2021-09-04 Univers kidney kidney d 8-20 00:00:00 14:37:22 ity of injury due injury due 00:[place] to to 00 hypovolemi hypovolemi An derso a a n [facility] Hypovolemi Hypovolemi Disease Resolve 2021-09-04 2021-09-04 Univers a a d 8 00:00:00 14:36:33 ity of 00:00: [address] [facility] High High Disease Resolve 2021-09-04 2021-09-04 Univers troponin I troponin I d 8 00:00:00 14:35:35 ity of level level 00:00: [place] 00 [facility] Hyperkalem Hyperkalem Disease Resolve 2021-09-04 2021-09-04 Univers ia ia d 02-16 00:00:00 14:36:15 ity of 00:00: [address] [facility] Aspergillo Aspergillo Disease Resolve 2021-09-04 2021-09-04 Univers sis with sis with d 10-25 00:00:00 14:36:44 it y of pneumonia pneumonia [place] 00 [facility] Multiple Multiple Disease Resolve 2021-09-04 2021-09-04 Univers lung lung d 10-20 00:00:00 14:36:17 [place] of abscesses [place]es [place] [facility] Drug Drug Disease Resolve 2021-09-04 2021-09-04 Univers induced induced d 3 00:00:00 14:37:13 ity of diabetes diabetes 00:00: [place] mellitus mellitus 00 with with Fuentes hyperglyce hyperglyce n [facility] prison prison Disease Resolve 2021-09-04 2021-09-04 Univers current current d 3- 00:00:00 14:37:15 ity of use of use of 00:00: [place] systemic systemic 00 steroid steroid [facility] Pneumocyst Pneumocyst Disease Resolve 2021-09-04 2021-09-04 Univers osis osis d 3- 00:00:00 14:35:43 it[place] of pneumonia pneumonia 00:[place] 00 [facility] Cytomegalo Cytomegalo Disease Resolve 2021-09-04 2021-09-04 Univers virus virus d 3-08 00:00:00 14:35:47 ity of infection infection 00:00: [place] 00 MD Fuentes zimmerman [facility] Diarrhea Diarrhea Disease Resolve 2021-09-04 2021-09-04 Univers d 2-22 00:00:00 14:37:13 ity of 00:00: [place] 00 MD Fuentes zimmerman [facility] Aspiration Aspiration Disease Resolve 2021-09-04 2021-09-04 Univers into lower into lower d 2-11 00:00:00 14:37:24 ity of respirator respirator [place] y tract y tract 00 MD Fuentes zimmerman [facility] COVID-19 COVID-19 Disease Resolve 2021-09-04 2021-09-04 Univers d 1-30 00:00:00 14:35:39 ity of 00:00: 00 MD Fuentes zimmerman [facility] Amaurosis Amaurosis Disease Resolve 2021-09-04 2021-09-04 Univers fugax fugax d 4-29 00:00:00 14:36:43 ity of 00:00: 00 MD Fuentes zimmerman [facility] Cancer-rel Cancer-rel Disease Resolve 2021-09-04 2021-09-04 Univers ated ated d 00:00:00 14:37:19 ity of fatigue fatigue [place] [facility]erman [facility] Mixed Mixed Disease Resolve 2021-09-04 2021-09-04 Univers infectious infectious d 00:00:00 14:36:17 ity of disease disease [facility]erman [facility] Tomography Tomography Disease Resolve 2021-09-04 2021-09-04 Univers - chest - chest d 00:00:00 14:36:37 ity of abnormal abnormal [facility] Allergies, Adverse Reactions, Alerts Allergy Allergy Status Severity Reaction(s) Onset Inactive Treating Comm ents Source Name Type Date Date Clinician No Known DA Active U 2020-1 [facility] Allergie 0-30 [place] 00:00: d 00 [facility] No Known DA Active U 2020-1 [facility] Allergie 0-30 [facility] 00:00: d 00 [facility] codeine DA Active PR 2019- [facility] 2-13 [facility] 00:[facility]: d 00 [facility] codeine DA Active PR rash 2019- [facility] 2-13 [facility] 00:[facility]: d 00 [facility] codeine DA Active PR 2011- [facility] 0-09 [facility] 00:[facility]: d 00 [facility] codeine DA Active PR rash 2011- [facility] 0-09 [facility] 00:[facility]: d 00 [facility] NO KNOWN Drug Active Univers ALLERGIE Class ity of [facility] Family History Family Member Diagnosis Comments Start Date Stop Date Source Maternal grandfather [facility] [place] Natural sister Lung cancer Universit y [facility] Cance r [place] Social History Social Habit Start Date Stop Date Quantity Comments Source History of tobacco Cigarette Smoker University of use [place] MD Sims [facility] History SDOH University o f Alcohol Frequency [facility] History [facility] o f Alcohol Std Drinks [facility] History [facility] o f Alcohol Binge [place] MD [facility] Alcohol intake 2021-10-25 2021-10-25 Ex-drinker University of 00:00:00 00:00:00 (finding) [place] MD Sims [facility] Cigarettes smoked 2020-03-02 2020-03-02 Univers ity of current (pack per 00:00:00 00:00:00 [facility] ) - Reported Cancer Ce nter Tobacco use and 2020-03-02 2020-03-02 Smokeless Universit y of exposure 00:00:00 00:00:00 tobacco non-user [facility] History SDOH 2020-03-02 2020-03-02 .5 elizabeth of [facility] Alcohol Comment 00:00:00 00:00:00 vodka daily 15 [facility] years ago Cancer Center Sex Ass[birth year] Universit y of 00:00:00 00:00:00 [place] MD Sims [facility] Smoking Status Start Date Stop Date Source Ex-smoker 2020-03-02 00:00:00 2020-03-02 00:00:00 Universi ty of [facility] Medications Ordered Filled Start Stop Current [...] mg per specified daily. n tablet Cancer [place] levoFLOXaci Yes Upper 500mg Take 1 Un yakov n 5-06 respiratory tablet ity of (Levaquin) 00:00: infection, (500 mg) [place] 500 mg 00 not by mouth MD tablet otherwise daily. Bakari o specified n Cancer [place] levoFLOXaci Yes Upper 500mg Take 1 Un yakov n 5-06 respiratory tablet ity of (Levaquin) 00:00: infection, (500 mg) [place] 500 mg 00 not by mouth MD tablet otherwise daily. Bakari o specified n Cancer [place] levoFLOXaci Yes Upper 500mg Take 1 Un yakov n 5-06 respiratory tablet ity of (Levaquin) 00:00: infection, (500 mg) [place] 500 mg 00 not by mouth MD tablet otherwise daily. Bakari o specified n Cancer [place] fluconazole 2021- No Candidal 200mg Take 1 Univers (Diflucan) 10-25 05-03 esophagitis tablet ity of 200 mg 00:00: 04:59 (200 mg) [place] tablet 00 :00 by mouth MD daily for Anderso 4 days. n Cancer [place] fluconazole 2021- No Cand[place] 200mg Take 1 Univers (Diflucan) 10-25 05-03 esophagitis tablet ity of 200 mg 00:00: 04:59 (200 mg) [place] tablet 00 :00 by mouth MD daily for Anderso 4 days. n Cancer [place] fluconazole 2021- No Cand[place] 200mg Take 1 Univers (Diflucan) 10-25 05-03 esophagitis tablet ity of 200 mg 00:00: 04:59 (200 mg) [place] tablet 00 :00 by mouth daily for Anderso 4 days. [facility] No 12.5mg Take 12.5 Univers e 4-27 04-27 mg by ity of (PHENERGAN) 18:27: 00:00 [place] 12.5 mg 03 :00 every 6 MD tablet (six) Anderso hours as n needed. Cancer Center aspirin 81 2021- No 81mg Take 81 mg Univers mg EC - 04-27 by mouth ity of tablet 18:27: 00:00 [place]. [place] 03 :00 [place] Fuentes [facility]erman [facility] 2021- No 12.5mg Take 12.5 Univers e 4- 04-27 mg by ity of (PHENERGAN) 18:27: 00:00 [place] 12.5 mg 03 :00 every 6 MD tablet (six) Anderso hours as n needed. Cancer Center aspirin 81 2021- No 81mg Take 81 mg Univers mg EC - 04-27 by mouth ity of tablet 18:27: 00:00 [place]. [place] 03 :00 [facility]- No 12.5mg Take 12.5 Univers e 4- 04-27 mg by ity of (PHENERGAN) 18:27: 00:00 [place] 12.5 mg 03 :00 every 6 MD tablet (six) Anderso hours as n needed. Cancer Center aspirin 81 2021- No 81mg Take 81 mg Univers mg EC - 04-27 by mouth ity of tablet 18:27: 00:00 [place] 03 :00 [place] Fuentes zimmerman [facility] atorvastati Yes 40mg Take 40 mg Univers n (LIPITOR) 4-27 by mouth ity of 40 mg 18:26: daily. [place] tablet 55 MD Fuentes zimmerman [facility] budesonide 2022-0 Yes severe .25mg Inhale Un yakov (PULMICORT) 4-27 chronic 0.25 mg by ity of 0.25 mg/2 18:26: obstructive nebulizati [place] mL 55 pulmonary on daily. nebulizer disease Anderso solution [facility] Uniteclidiniu Yes Inhale by U nivers m-vilantero 4-27 mouth. ity of L 62.5-25 18:26: [place] mcg/actuati 55 [facility] megestrol Yes 400mg Give 400 Uni vers (MEGACE) 40 4-27 mg per ity of mg/mL 18:26: G-tube. [place] suspension 55 [facility] atorvastati Yes 40mg Take 40 mg Univers n (LIPITOR) 4-27 by mouth ity of 40 mg 18:26: daily. [place] tablet 55 [facility] budesonide Yes severe .25mg Inhale Un yakov (PULMICORT) 4-27 chronic 0.25 mg by ity of 0.25 mg/2 18:26: obstructive nebulizati [place] mL 55 pulmonary on daily. nebulizer disease [facility] solution [facility] Unitecdiniu Yes Inhale by U nivers m-vilantero 4-27 mouth. ity of L 62.5-25 18:26: [place] mcg/actuati 55 [facility]v [facility] megestrol Yes 400mg Give 400 Uni vers (MEGACE) 40 4-27 mg per ity of mg/mL 18:26: G-tube. [place] suspension 55 [facility] atorvastati Yes 40mg Take 40 mg Univers n (LIPITOR) 4-27 by mouth ity of 40 mg 18:26: daily. [place] tablet 55 [facility] budesonide Yes severe .25mg Inhale Un yakov (PULMICORT) 4-27 chronic 0.25 mg by ity of 0.25 mg/2 18:26: obstructive nebulizati [place] mL 55 pulmonary on daily. nebulizer disease Anderso solution [facility] 2022-0 Yes Inhale by U nivers m-vilantero 10-24 mouth. ity of L 62.5-25 18:26: [place] mcg/actuati 55 MD on dsdv [facility] megestrol Yes 400mg Give 400 Uni vers (MEGACE) 40 -27 mg per ity of mg/mL 18:26: G-tube. [place] suspension 55 MD Fuetnes [facility] ipratropium Yes Pneumocysto 3mL Inhale 1 [...] Pneumonia 1{puff} Inhale 1 Univers HFA 90 -27 due to puff by ity of mcg/actuati 00:00: other [place] on inhaler 00 Gram-negati every 6 MD ve bacteria (six) [place] hours as n needed for Cancer wheezing Center or shortness of breath. ipratropium Yes Pneumocysto 3mL Inhale 1 Univers -albuterol 10-24 sis vial (3 ity of (DUO-NEB) 00:00: pneumonia mL) by T janet 0.5 mg-2.5 00 nebulizati MD mg/3 mL [...] Upper 875mg Take 1 U nivers -clavulanat 4-14 -27 respiratory tablet ity of e 00:00: 00:00 infection, (875 mg) [place] (Augmentin) 00 :00 not by mouth 875 mg-125 otherwise twice And erso mg per specified daily for n tablet 7 days. [facility] amoxicillin 2021- No Upper 875mg Take 1 U nivers -clavulanat 4-14 10-24 respiratory tablet ity of e 00:00: 00:00 infection, (875 mg) [place] (Augmentin) 00 :00 not by mouth MD 875 mg-125 otherwise twice And erso mg per specified daily for n tablet 7 days. [facility] amoxicillin 2021- No Upper 875mg Take 1 U nivers -clavulanat 410-24 respiratory tablet ity of e 00:00: 00:00 infection, (875 mg) [place] (Augmentin) 00 :00 not by mouth 875 mg-125 otherwise twice And erso mg per specified daily for n tablet 7 days. [facility] amoxicillin 2021- No Decompensat 875mg Take 1 Univers -clavulanat 10-10-14 ed COPD tablet it y of e 00:00: 00:00 with acute (875 mg) [place] (Augmentin) 00 :00 exacerbatio by mouth 875 mg-125 n twice Anderso mg per daily for n tablet 5 days. [facility] amoxicillin 2021- No Decompensat 875mg Take 1 Univers -clavulanat -10 10-14 ed COPD tablet it y of e 00:00: 00:00 with acute (875 mg) [place] (Augmentin) 00 :00 exacerbatio by mouth 875 mg-125 n twice Anders[place] mg per daily for n tablet 5 days. [facility] amoxicillin 2021- No Decompensat 875mg Take 1 Univers -clavulanat 4-13 -14 ed COPD tablet it y of e 00:00: 00:00 with acute (875 mg) [place] (Augmentin) 00 :00 exacerbatio by mouth 875 mg-125 n twice [place] mg per daily for n tablet 5 days. [facility] acetaminoph Yes Neoplasm 1{tbl} Take 1 [...] by mouth MD 875 mg-125 every 12 Elvi so mg per (twelve) n tablet hours for Cancer 3 days. [place] amoxicillin 2021- No [facility] 875mg Take 1 Univers -clavulanat 09-07 acquired tablet i ty of e 00:00: 04:59 pneumonia (875 mg) [place] (AUGMENTIN) 00 :00 by mouth MD 875 mg-125 every 12 [place] so mg per (twelve) n tablet hours for Cancer 3 days. [place] amoxicillin 2021- No [facility] 875mg Take 1 Univers -clavulanat 09-07 acquired tablet i ty of e 00:00: 04:59 pneumonia (875 mg) [place] (AUGMENTIN) 00 :00 by mouth MD 875 mg-125 every 12 [place] so mg per (twelve) n tablet hours for Cancer 3 days. [place] amoxicillin 2021- No [facility] 875mg Take 1 Univers -clavulanat 09-07 acquired tablet i ty of e 00:00: 00:00 pneumonia (875 mg) [place] (AUGMENTIN) 00 :00 by mouth MD 875 mg-125 every 12 [place] so mg per (twelve) n tablet hours for Cancer 3 days. [place] amoxicillin 2021- No [facility] 875mg Take 1 Univers -clavulanat 09-07 acquired tablet i ty of e 00:00: 00:00 pneumonia (875 mg) [place] (AUGMENTIN) 00 :00 by mouth MD 875 mg-125 every 12 [place] so mg per (twelve) n tablet hours for Cancer 3 days. [place] amoxicillin 2021- No [facility] 875mg Take 1 Univers -clavulanat 09-07 acquired tablet i ty of e 00:00: 00:00 pneumonia (875 mg) [place] (AUGMENTIN) 00 :00 by mouth MD 875 mg-125 every 12 Levi so mg per (twelve) n tablet hours for Cancer 3 days. [place] amoxicillin [id number] [facility] 875mg Take 1 Univers -clavulanat 09-07 acquired tablet i ty of e 00:00: 00:00 pneumonia (875 mg) [place] (AUGMENTIN) 00 :00 by mouth MD 875 mg-125 every 12 Levi so mg per (twelve) n tablet hours for Cancer 3 days. [place] amoxicillin 2021- No [facility] 875mg Take 1 Univers -clavulanat 09-07 acquired tablet i ty of e 00:00: 00:00 pneumonia (875 mg) [place] (AUGMENTIN) 00 :00 by mouth MD 875 mg-125 every 12 Levi so mg per (twelve) n tablet hours for Cancer 3 days. [place] amoxicillin 2021- No [facility] 875mg Take 1 Univers -clavulanat 09-07 acquired tablet i ty of e 00:00: 00:00 pneumonia (875 mg) [place] (AUGMENTIN) 00 :00 by mouth MD 875 mg-125 every 12 Levi so mg per (twelve) n tablet hours for Cancer 3 days. [place] HYDROcodone 2021- No Adjustment 1{tbl} Take 1 Univers -acetaminop 2-15 09-11 disorder tablet by ity of [employer]) 00:00: 00:00 with mixed mouth [place] 5 mg-325 mg 00 :00 anxiety and every 6 MD per tablet depressed (six) And erso mood hours as n needed for Cancer moderate Center pain for up to 30 days. HYDROcodone 2021- No Adjustment 1{tbl} Take 1 Univers -acetaminop 2-15 09-11 disorder tablet by ity of hen ([employer]) 00:00: 00:00 with mixed mouth [place] 5 mg-325 mg 00 :00 anxiety and every 6 MD per tablet depressed (six) And erso mood hours as n needed for Cancer moderate Center pain for up to 30 days. HYDROcodone 2021- No Adjustment 1{tbl} Take 1 Univers -acetaminop 2-19 -11 disorder tablet by ity of hen ([employer]) 00:00: 00:00 with mixed mouth [place] 5 mg-325 mg 00 :00 anxiety and every 6 MD per tablet depressed (six) And erso mood hours as n needed for Cancer moderate Center pain for up to 30 days. QUEtiapine 2021- No Adjustment 75mg Take 3 Univers (SEROquel) 2-15 04- disorder tablets i ty of 25 mg 00:00: 00:00 with mixed (75 mg) by [place] tablet 00 :00 anxiety and mouth at MD depressed bedtime. [facility] QUEtiapine 2021- No Adjustment 75mg Take 3 Univers (SEROquel) 2-10-24 disorder tablets i ty of 25 mg 00:00: 00:00 with mixed (75 mg) by [place] tablet 00 :00 anxiety and mouth at MD depressed bedtime. [facility] QUEtiapine 2021- No Adjustment 75mg Take 3 Univers (SEROquel) 08-14 disorder tablets i ty of 25 mg 00:00: 00:00 with mixed (75 mg) by [place] tablet 00 :00 anxiety and mouth at MD depressed bedtime. [facility] HYDROcodone 2021- No Adjustment 1{tbl} Take 1 Univers -acetaminop 2-08-18 disorder tablet by ity of hen ([place]) 00:00: 00:00 with mixed mouth [place] 5 mg-325 mg 00 :00 anxiety and every 6 MD per tablet depressed (six) And erso mood hours as n needed for Cancer moderate Center pain for up to 30 days. HYDROcodone 2021- No Adjustment 1{tbl} Take 1 Univers -acetaminop 2-14 08- disorder tablet by ity of hen ([place]) 00:00: 00:00 with mixed mouth [place] 5 mg-325 mg 00 :00 anxiety and every 6 MD per tablet depressed (six) And erso mood hours as n needed for Cancer moderate Center pain for up to 30 days. HYDROcodone 2021- No Adjustment 1{tbl} Take 1 Univers -acetaminop 2-15 - disorder tablet by ity of hen ([place]) 00:00: 00:00 with mixed mouth [place] 5 [...] MOUTH MD lung TWICE Anderso <Right> DAILY [facility] memantine Yes Small cell TAKE 1 Univers (NAMENDA) 214 carcinoma, TABLET(10 ity of 10 mg 00:00: NOS of MG) BY [place] tablet 00 upper lobe, MOUTH MD lung TWICE [place]o <Right> DAILY n [facility] memantine Yes Small cell TAKE 1 Univers (NAMENDA) 214 carcinoma, TABLET(10 ity of 10 mg 00:00: NOS of MG) BY [place] tablet 00 upper lobe, MOUTH MD lung TWICE [place] <Right> [facility] Small cell 5 mg a [...] ity of (PROTONIX) 00:00: respiratory MG) BY [place] 40 mg EC 00 tract MOUTH MD tablet DAILY Anderso 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 [facility] QUEtiapine 2021- No Adjustment 75mg Take 3 Univers (SEROquel) 07-11 disorder tablets i ty of 25 mg 00:00: 00:00 with mixed (75 mg) by [place] tablet 00 :00 anxiety and mouth at MD depressed bedtime. [facility] QUEtiapine 2021- No Adjustment 75mg Take 3 Univers (SEROquel) 07-11 disorder tablets i ty of 25 mg 00:00: 00:00 with mixed (75 mg) by [place] tablet 00 :00 anxiety and mouth at MD depressed bedtime. [facility] pantoprazol 2021- No Aspiration 40mg Take 1 Univers e 07-11 into lower tablet (40 it y of (PROTONIX) 00:00: 00:00 respiratory mg) by [place] 40 mg EC 00 :00 tract mouth MD tablet daily. [facility] pantoprazol 2021- No Aspiration 40mg Take 1 Univers e 07-11 into lower tablet (40 it y of (PROTONIX) 00:00: 00:00 respiratory mg) by [place] 40 mg EC 00 :00 tract mouth MD tablet daily. [facility] pantoprazol 2021- No Aspiration 40mg Take 1 Univers e 07-11 into lower tablet (40 it y of (PROTONIX) 00:00: 00:00 respiratory mg) by [place] 40 mg EC 00 :00 tract mouth MD tablet daily. [facility] OLANZapine 2021- No Insomnia, 2.5mg Take 1 Univers (ZyPREXA) 07-02 not tablet ity of 2.5 mg 00:00: 00:00 otherwise (2.5 mg) [place] tablet 00 :00 specified by mouth 2 MD (two) Anderso times a n day as Cancer needed for Center sleep or non-violen t agitation. OLANZapine 2021- No Insomnia, 2.5mg Take 1 Univers (ZyPREXA) 07-02 not tablet ity of 2.5 mg 00:00: 00:00 otherwise (2.5 mg) [place] tablet 00 :00 specified by mouth 2 MD (two) Anderso times a n day as Cancer needed for Center sleep or non-violen t agitation. OLANZapine 2021- No Insomnia, 2.5mg Take 1 Univers (ZyPREXA) 07-02 not tablet ity of 2.5 mg 00:00: 00:00 otherwise (2.5 mg) [place] tablet 00 :00 specified by mouth 2 MD (two) Anderso times a n day as Cancer needed for Center sleep or non-violen t agitation. amoxicillin 2020-06 No Upper 875mg Take 1 U nivers -clavulanat 08-14 respiratory tablet ity of e 00:00: 00:00 infection, (875 mg) [place] (Augmentin) 00 :00 not by mouth 875 mg-125 otherwise twice And erso mg per specified daily. 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 Center amoxicillin 2020-06 No Upper 875mg Take 1 U nivers -clavulanat 08-14 respiratory tablet ity of e 00:00: 00:00 infection, (875 mg) [place] (Augmentin) 00 :00 not by mouth MD 875 mg-125 otherwise twice And erso mg per specified daily. 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 [place] amoxicillin 2020-06- No Upper 875mg Take 1 U nivers -clavulanat 08-14 respiratory tablet ity of e 00:00: 00:00 infection, (875 mg) [place] (Augmentin) 00 :00 not by mouth MD 875 mg-125 otherwise twice And erso mg per specified daily. 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 [place] amoxicillin 2020-06 No Upper 875mg Take 1 U nivers -clavulanat 2-13 06-27 respiratory tablet ity of e 00:00: 00:00 infection, (875 mg) [place] (Augmentin) 00 :00 not by mouth MD 875 mg-125 otherwise twice And erso mg per specified daily. n tablet Cancer [place] amoxicillin 2020-06 No Upper 875mg Take 1 U nivers -clavulanat 2-13 06-27 respiratory tablet ity of e 00:00: 00:00 infection, (875 mg) [place] (Augmentin) 00 :00 not by mouth MD 875 mg-125 otherwise twice And erso mg per specified daily. n tablet Cancer [place] amoxicillin 2020-06- No Upper 875mg Take 1 U nivers -clavulanat 2-13 06-27 respiratory tablet ity of e 00:00: 00:00 [...] tablet 00 :00 PRN back MD spasm. [facility] baclofen 2020-06- No Muscle Take 1/2 Un yakov (LIORESAL) 0 11-18 spasm of tablet (5 ity of 10 mg 00:00: 00:00 back mg) PO q12 [place] tablet 00 :00 PRN back MD spasm. [facility] baclofen 2020-06- No Muscle Take 1/2 Un yakov (LIORESAL) 0 11-18 spasm of tablet (5 ity of 10 mg 00:00: 00:00 back mg) PO q12 [place] tablet 00 :00 PRN back MD spasm. 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 n tablet Cancer Center amoxicillin 2020-06- No Upper 875mg Take 1 U nivers -clavulanat 0-15 -23 respiratory tablet ity of e 00:00: 00:00 infection, (875 mg) [place] (Augmentin) 00 :00 not by mouth 875 mg-125 otherwise twice And erso mg per specified daily. n tablet Cancer Center amoxicillin 2020-06- No Upper 875mg Take 1 U nivers -clavulanat 0-15 02-23 respiratory tablet ity of e 00:00: 00:00 infection, (875 mg) [place] (Augmentin) 00 :00 not by mouth 875 mg-125 otherwise twice And erso mg per specified daily. 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 amoxicillin 2020-06- No Upper 875mg Take 1 U nivers -clavulanat 0-09 10-15 respiratory tablet ity of e 00:00: 00:00 infection, (875 mg) [place] (Augmentin) 00 :00 not by mouth 875 mg-125 otherwise twice And erso mg per specified daily. [facility] amoxicillin 2020-06- No Upper 875mg Take 1 U nivers -clavulanat 0-09 10-15 respiratory tablet ity of e 00:00: 00:00 infection, (875 mg) [place] (Augmentin) 00 :00 not by mouth 875 mg-125 otherwise twice And erso mg per specified daily. [facility] pantoprazol 2021- No Aspiration 40mg Take 1 Univers e 03-29 into lower tablet (40 it y of (PROTONIX) 00:00: 00:00 respiratory mg) by [place] 40 mg EC 00 :00 tract mouth tablet daily. [facility] pantoprazol 2021- No Aspiration 40mg Take 1 Univers e 03-2912 into lower tablet (40 it y of (PROTONIX) 00:00: 00:00 respiratory mg) by [place] 40 mg EC 00 :00 tract mouth tablet daily. [facility] pantoprazol 2021- No Aspiration 40mg Take 1 Univers e 03-29 into lower tablet (40 it y of (PROTONIX) 00:00: 00:00 respiratory mg) by [place] 40 mg EC 00 :00 tract mouth MD tablet daily. [facility] baclofen 2020- No Muscle Take 1/2 Un yakov (LIORESAL) 9 10-27 spasm of tablet (5 ity of 10 mg 00:00: 00:00 back mg) PO q12 [place] tablet 00 :00 PRN back MD spasm. [facility] baclofen 2020- No Muscle Take 1/2 Un y[place] (LIORESAL) 9 10-27 spasm of tablet (5 ity of 10 mg 00:00: 00:00 back mg) PO q12 [place] tablet 00 :00 PRN back MD spasm. [facility] baclofen 2020- No Muscle Take 1/2 Un y[place] (LIORESAL) 03-29 10-27 spasm of tablet (5 ity of 10 mg 00:00: 00:00 back mg) PO q12 [place] tablet 00 :00 PRN back MD spasm. 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 [place] acetaminoph 2020- No Chronic 1{tbl} Take 1 Univers en-codeine - 12-29 pain due to tablet by ity [...] No Muscle Take 1/2 Un y[place] (LIORESAL) 03-08- spasm of tablet (5 ity of 10 mg 00:00: 00:00 back mg) PO q12 [place] tablet 00 :00 PRN back spasm. [facility] baclofen 2020- No Muscle Take 1/2 Un yakov (LIORESAL) 03-08 spasm of tablet (5 ity of 10 mg 00:00: 00:00 back mg) PO q12 [place] tablet 00 :00 PRN back spasm. [facility] baclofen 5 2020- No Muscle 5mg Take 5 mg Univers mg tab 03-08 spasm of by mouth ity of 00:00: 00:00 back every 12 [place] 00 :00 (twelve) MD hours. [facility] QUEtiapine 2021- No Aspiration 75mg 3 tablets Univers (SEROquel) 03-07 into lower (75 mg) by ity of 25 mg 00:00: 00:00 respiratory feeding [place] tablet 00 :00 tract tube route at [facility]. [facility] QUEtiapine 2021- No Aspiration 75mg 3 tablets Univers (SEROquel) 03-07 into lower (75 mg) by ity of 25 mg 00:00: 00:00 respiratory feeding [place] tablet 00 :00 tract tube route at [facility]. [facility] QUEtiapine 2021- No Aspiration 75mg 3 tablets Univers (SEROquel) 03-07 into lower (75 mg) by ity of 25 mg 00:00: 00:00 respiratory feeding [place] tablet 00 :00 tract tube route at [facility]. [facility] QUEtiapine 2020- No Aspiration 75mg 3 tablets Univers (SEROquel) 03-06 into lower (75 mg) by ity of 25 mg 00:00: 00:00 respiratory feeding [place] tablet 00 :00 tract tube route at [facility]. [facility] fluconazole 2020- No Acute 100mg Take 1 U nivers (DIFLUCAN) 03-03 kidney tablet ity of 100 mg 00:00: 04:59 injury due (100 mg) [place] tablet 00 :00 to by mouth hypovolemia daily for And erso [address] [facility] lidocaine 2021- No Acute 10mL Swish and [...] 00:00: 00:00 injury due mL every 8 [place] (2%) 00 :00 to (eight) MD viscous [...] 00:00: 00:00 injury due mL every 8 [place] (2%) 00 :00 to (eight) MD viscous [...] mg 00:00: 00:00 of upper mg) by [place] tablet 00 :00 lobe of mouth MD right lung twice Anderso daily. n [facility] memantine 2020- No Small cell 10mg Take 1 Univers (Namenda) 03-02 1012 carcinoma tablet (10 ity of 10 mg 00:00: 00:00 of upper mg) by [place] tablet 00 :00 lobe of mouth MD right lung twice Anderso daily. n [facility] baclofen 5 2020- No Muscle 5mg Take 5 mg Univers mg tab 03-02 spasm of by mouth ity of 00:00: 00:00 back every 12 [place] 00 :00 (twelve) MD hours. [facility] pantoprazol 2020- No Aspiration 40mg Take 1 Univers e 02-28 into lower tablet (40 it y of (PROTONIX) 00:00: 00:00 respiratory mg) by [place] 40 mg EC 00 :00 tract mouth MD tablet daily. [facility] pantoprazol 2020- No Aspiration 40mg Take 1 Univers e 02-28 into lower tablet (40 it y of (PROTONIX) 00:00: 00:00 respiratory mg) by [place] 40 mg EC 00 :00 tract mouth MD tablet daily. [facility] loperamide Yes Aspiration 2mg Take 1 Univers (IMODIUM) 2 8-31 into lower capsule (2 ity of mg capsule 00:00: respiratory mg) by [place] [address] tract mouth MD every 8 Anderso (eight) n hours as Cancer needed for Center diarrhea. Buy over the counter loperamide Yes Aspiration 2mg Take 1 Univers (IMODIUM) 2 8-31 into lower capsule (2 ity of mg capsule 00:00: respiratory mg) by [place] [address] tract mouth MD every 8 [place]o (eight) n hours as Cancer needed for Center diarrhea. Buy over the counter loperamide Yes Aspiration 2mg Take 1 Univers (IMODIUM) 2 8-31 into lower capsule (2 ity of mg capsule 00:00: respiratory mg) by [place] 00 tract mouth MD every 8 Anderso (eight) n hours as Cancer needed for Center diarrhea. Buy over the counter senna 2021- No Aspiration 2{tbl} Take 2 U nivers (SENOKOT) 02-2717 into lower tablets by ity of 8.6 mg 00:00: 00:00 respiratory mouth 2 [place] tablet 00 :00 tract (two) MD times a Anderso day as n needed for Cancer constipati Center on. Buy over the counter senna 2021- No Aspiration 2{tbl} Take 2 U nivers (SENOKOT) 02-2717 into lower tablets by ity of 8.6 mg 00:00: 00:00 respiratory mouth 2 [place] tablet 00 :00 tract (two) MD times a Anderso day as n needed for Cancer constipati Center on. Buy over the counter senna 2021- No Aspiration 2{tbl} Take 2 U nivers (SENOKOT) 02-27 into lower tablets by ity of 8.6 [...] 12 Anderso syringe pulmonale (twelve) n hours. [facility] Center enoxaparin 2021- No Other 50mg Inject 0.5 Univers (Lovenox) 02-27 pulmonary mL (50 mg) ity of 60 mg/0.6 00:00: 00:00 embolism under the [place] mL 00 :00 with acute skin every MD prefilled cor 12 Anderso syringe pulmonale (twelve) n hours. [facility] Center enoxaparin 2021- No Other 50mg Inject [...] tablet hours as n needed Cancer (pain). [facility] Yes Aspiration 1{tbl} Take 1 Univers n tab 7-23 into lower tablet by ity of tablet 00:00: respiratory mouth [place] 00 tract daily. MD Fuentes zimmerman [facility] Yes Aspiration 1{tbl} Take 1 Univers n tab 7-23 into lower tablet by ity of tablet 00:00: respiratory mouth [place] 00 tract daily. [facility] 1{tbl} Take 1 Univers n tab 7-23 into lower tablet by ity of tablet 00:00: respiratory mouth [place] 00 tract daily. MD Fuentes zimmerman [facility] ferrous 2021- No 1{tbl} Take 1 Unive rs sulfate 325 7-22 05-17 tablet by it y of (65 FE) MG 00:00: 00:00 mouth [place] EC tablet 00 :00 daily. MD Fuentes zimmerman [facility] ferrous 2021- No 1{tbl} Take 1 Unive rs sulfate 325 7-22 05-17 tablet by it y of (65 FE) MG 00:00: 00:00 mouth [place] EC tablet 00 :00 daily. MD Fuentes zimmerman [facility] ferrous 2021- No 1{tbl} Take 1 Unive rs sulfate 325 7-22 05-17 tablet by it y of (65 FE) MG 00:00: 00:00 mouth [place] EC tablet 00 :00 daily. 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 [facility] ipratropium 2021- No Pneumocysto USE 1 VIAL Univers -albuterol 11-30 04-27 sis VIA ity of (DUO-NEB) 00:00: 00:00 [...] No Tube 250mL Give 250 Univers ired 5 03-11 feeding mL per ity of digestive [...] 12 [place]o (twelve) n hours. Cancer Center guaiFENesin 2021- No Emphysema 600mg Take 1 Univers (MUCINEX) 10-08 tablet ity of 600 mg 12 00:00: 04:59 (600 mg) [place] hr tablet 00 :00 by mouth MD every 12 [place]o (twelve) n hours. [facility] guaiFENesin 2022- No Emphysema 600mg Take 1 Univers (MUCINEX) 10-08 tablet ity of 600 mg 12 00:00: 04:59 (600 mg) [place] hr tablet 00 :00 by mouth MD every 12 Anderso (twelve) n hours. 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 Bakari zimmerman [facility] Yes Type 2 1{each} 1 each by [facility] 10-06 diabetes miscellane ity o f 00:00: [place]us route [place] 00 with twice MD hyperglycem daily. Bakari zimmerman [facility] Yes Type 2 1{each} 1 each by [facility] 10-06 diabetes miscellane ity o f 00:00: [place]us route [place] 00 with twice MD hyperglycem daily. Bakari zimmerman [facility] Immunizations Ordered Filled Immunization Date Status Comments [facility] e Immun[facility] Com[facility] of 00:00:00 [place] MD Sims [facility] remdesivir 2020-08-22 Completed University of 00:00:00 [place] MD Sims [facility] remdesivir 2020-08-22 Completed University of 00:00:00 [place] Sims [facility] remdesivir 2020-08-22 Completed University of 00:00:00 [place] MD Sims [facility] remdesivir 2020-08-22 Completed University of 00:00:00 [place] MD Sims [facility] remdesivir 2020-08-22 Completed University of 00:00:00 [place] MD Sims [facility] remdesivir 2020-08-21 Completed University of 00:00:00 [place] MD Sims [facility] remdesivir 2020-08-21 Completed University of 00:00:00 [place] MD Sims [facility] remdesivir 2020-08-21 Completed [facility] of 00:00:00 [place] [facility] 2020-08-20 Completed [facility] of 00:00:00 [place] [facility] remdesivir 2020-08-20 Completed [facility] 00:00:00 [place] [facility] 00:00:00 [place] [facility] 2020[facility] Completed [facility] 00:00:00 [place] [facility] Completed [facility] 00:00:00 [place] [facility] 2020-08-19 Completed [facility] 00:00:00 [place] [facility] 2020[facility]08[facility]18 Completed [facility] 00:00:00 [place] [facility] 2020[facility] Completed [facility] 00:00:00 [place] [facility] 2020[facility] Completed [facility] 00:00:00 [place] [facility] 2020-08-03 Completed [facility] of 00:00:00 [place] [facility] 2020-08-03 Completed University of 00:00:00 [place] [facility] remdesivir 2020-08-03 Completed University of 00:00:00 [place] [facility] 2020-08-02 Completed [facility] 00:00:00 [place] [facility] Com[facility] of 00:00:00 [place] [facility] remdesivir 2020-08-02 Completed University of 00:00:00 [place] [facility] remdesivir 2020-08-02 Completed University of 00:00:00 [place] [facility] remdesivir 2020-08-02 Completed University of 00:00:00 [place] [facility] 2020-08-02 Completed University of 00:00:00 [place] [facility] 2020-08-01 Completed University of 00:00:00 [place] [facility] Com[facility] 00:00:00 [place] [facility] Completed University of 00:00:00 [place] Levi darden [facility] remdesivir 2020-07-31 Completed University of 00:00:00 [place] Levi darden [facility] remdesivir 2020-07-31 Completed University of 00:00:00 [place] Levi darden [facility] remdesivir 2020-07-31 Completed University of 00:00:00 [place] Levi darden [facility] [place] [facility] 2020[facility] Completed [facility] 00:00:00 [place] Levi darden [facility] remdesivir 2020-07-30 Completed [facility] 00:00:00 [place] Levi darden [facility] remdesivir 2020-07-30 Completed [facility] of 00:00:00 [place] Levi darden [facility] Influenza Split 2020-03-29 Completed Universit y of High Dose 00:00:00 [place] Levi darden [facility] IM Zoster Recombinant 2020-03-29 Completed Univer sity of 00:00:00 [place] MD Leesvaleri darden [facility] Influenza Split 2020-03-29 Completed Universit y of High Dose 00:00:00 [place] Levi darden [facility] IM Zoster Recombinant 2020-03-29 Completed Univer sity of 00:00:00 [place] Levi [facility] Influenza Split 2020-03-29 Completed Universit y of High Dose 00:00:00 [place] Sims tod [facility] IM Zoster Recombinant 2020-03-29 Completed Univer sity of 00:00:00 [place] Levi [facility] Vital Signs Vital Name Observation Time Observation Value Comments Source WEIGHT 2020-04-21 12:35:00 49.6 kg HEIGHT 2020-03-31 09:15:13 162 cm WEIGHT 2020-03-31 09:15:13 49 kg HEIGHT 2020-03-02 10:27:01 162 cm WEIGHT 2020-03-02 10:27:01 46.8 kg Heart rate 2021-10-24 21:41:00 74 /min [facility] Respiratory rate 2021-10-24 21:41:00 18 /min Univ ersity of [facility] Center Systolic blood 2021-10-24 17:30:00 119 mm[Hg] Univer sity of pressure [facility] Diastolic blood 2021-10-24 17:30:00 78 mm[Hg] Unive rsity of pressure [place] MD [facility] Oxygen saturation in 2021-10-24 17:30:00 96 /min [facility] Arterial blood by [facility] Body temperature 2021-10-24 16:48:00 36.89 Lizabeth [facility] MD [facility] Body weight 2021-10-24 09:00:00 55 kg [facility] MD [facility] BMI 2021-10-24 09:00:00 19.57 kg/m2 [facility] MD [facility] Body height 2021-10-15 14:57:00 167.6 cm [facility] MD [facility]legas on [facility] Center Procedures Procedure Date / Time Performing Clinician Source Performed COMPLETE BLOOD COUNT W/ 2021-10-24 10:53:00 Tod Glass V. [facility] DIFFERENTIAL [facility] COMPREHENSIVE METABOLIC 2021-10-24 10:53:00 Tod Glass V. [facility] PANEL [facility] MAGNESIUM LEVEL 2021-10-24 10:53:00 Tod Glass V. [facility] PHOSPHORUS LEVEL 2021-10-24 10:53:00 Tod Glass V. [facility] Results CBC 2021-10-24 10:53:00 Tod Glass V. [facility] MANUAL DIFFERENTIAL 2021-10-24 10:53:00 Tod Glass V. [facility] GLUCOSE LEVEL 2021-10-24 10:53:00 Tod Glass V. [place] [facility] BLOOD UREA NITROGEN 2021-10-24 10:53:00 Tod Glass V. [facility] ELECTROLYTE PANEL 2021-10-24 10:53:00 Tod Glass V. [facility] SERUM CREATININE 2021-10-24 10:53:00 Tod Glass V. [facility] .GLOMERULAR FILTRATION 2021-10-24 10:53:00 Tod Glass [facility] RATE [facility] CALCIUM LEVEL TOTAL 2021-10-24 10:53:00 Tod Glass V. [facility] ALBUMIN LEVEL 2021-10-24 10:53:00 Tod Glass V. [facility] ALKALINE PHOSPHATASE 2021-10-24 10:53:00 Tod Glass [facility] ALANINE AMINOTRANSFERASE 2021-10-24 10:53:00 [facility] ASPARTATE AMINOTRANSFERASE 2021-10-24 10:53:00 [facility] TOTAL PROTEIN 2021-10-24 10:53:00 Tod Glass V. [facility] FRACTIONATED BILIRUBIN 2021-10-24 10:53:00 [facility] OSCILLATORY PEP 2021-10-23 13:00:13 Tod Glass V. [facility] COMPLETE BLOOD COUNT W/ 2021-10-23 12:28:00 Tod Glass V. [facility] DIFFERENTIAL [facility] COMPREHENSIVE METABOLIC 2021-10-23 12:28:00 Tod Glass V. [facility] PANEL [facility] MAGNESIUM LEVEL 2021-10-23 12:28:00 Tod Glass V. [facility] PHOSPHORUS LEVEL 2021-10-23 12:28:00 oTd Glass V. [facility] Results CBC 2021-10-23 12:28:00 Tod Glass V. [facility] MANUAL DIFFERENTIAL 2021-10-23 12:28:00 Tod Glass V. [facility] GLUCOSE LEVEL 2021-10-23 12:28:00 Tod Glass V. [facility] BLOOD UREA NITROGEN 2021-10-23 12:28:00 Tod Glass V. [facility] ELECTROLYTE PANEL 2021-10-23 12:28:00 Tod Glass V. [facility] SERUM CREATININE 2021-10-23 12:28:00 Tod Glass V. [facility] .GLOMERULAR FILTRATION 2021-10-23 12:28:00 Tod [facility] RATE [facility] CALCIUM LEVEL TOTAL 2021-10-23 12:28:00 Tod Glass V. [facility] ALBUMIN LEVEL 2021-10-23 12:28:00 Tod Glass V. [facility] ALKALINE PHOSPHATASE 2021-10-23 12:28:00 Tod Glass V. [facility] ALANINE AMINOTRANSFERASE 2021-10-23 12:28:00 [facility] ASPARTATE AMINOTRANSFERASE 2021-10-23 12:28:00 [facility] TOTAL PROTEIN 2021-10-23 12:28:00 Tod Glass V. [facility] FRACTIONATED BILIRUBIN 2021-10-23 12:28:00 Tod [facility] OSCILLATORY PEP 2021-10-22 19:00:57 Tod Glass V. [facility] OSCILLATORY PEP 2021-10-22 13:00:14 Tod Glass V. [facility] COMPLETE BLOOD COUNT W/ 2021-10-22 11:48:00 Tod Glass V. [facility] DIFFERENTIAL [facility] COMPREHENSIVE METABOLIC 2021-10-22 11:48:00 Tod Glass V. [facility] PANEL [facility] MAGNESIUM LEVEL 2021-10-22 11:48:00 Tod Glass V. [facility] PHOSPHORUS LEVEL 2021-10-22 11:48:00 Tod Glass V. [facility] IGG SUBCLASSES, SERUM 2021-10-22 11:48:00 Tod Glass [facility] IMMUNOGLOBULIN G SERUM 2021-10-22 11:48:00 Tod Glass [facility] IMMUNOGLOBULIN A SERUM 2021-10-22 11:48:00 Tod Glass [facility] Results CBC 2021-10-22 11:48:00 Tod Glass V. [facility] MANUAL DIFFERENTIAL 2021-10-22 11:48:00 Tod Glass V. [facility] GLUCOSE LEVEL 2021-10-22 11:48:00 Tod Glass V. [facility] BLOOD UREA NITROGEN 2021-10-22 11:48:00 Tod Glass V. [facility] ELECTROLYTE PANEL 2021-10-22 11:48:00 Tod Glass V. [facility] SERUM CREATININE 2021-10-22 11:48:00 Tod Glass V. [facility] .GLOMERULAR FILTRATION 2021-10-22 11:48:00 Tod Glass [facility] CALCIUM LEVEL TOTAL 2021-10-22 11:48:00 Tod Glsas V. [facility] ALBUMIN LEVEL 2021-10-22 11:48:00 Tod Glass V. [facility] ALKALINE PHOSPHATASE 2021-10-22 11:48:00 Tod Glass V. [facility] ALANINE AMINOTRANSFERASE 2021-10-22 11:48:00 Tod Glass V. [facility] ASPARTATE AMINOTRANSFERASE 2021-10-22 11:48:00 Tod Glass V. U [facility] TOTAL PROTEIN 2021-10-22 11:48:00 Tod Glass V. [facility] FRACTIONATED BILIRUBIN 2021-10-22 11:48:00 Tod Glass V. [facility] OSC[facility] PEP 2021-10-22 01:00:11 Tod Glass V. [facility] XR CHEST 1 VW 2021-10-21 20:44:00 Tod Glass V. [facility] BLOODCULTURE 2021-10-21 14:09:00 Tod Glass V. [facility] FUNGAL BLOODCULTURE 2021-10-21 14:09:00 Tod Glass V. [facility] COMPLETE BLOOD COUNT W/ 2021-10-21 11:02:00 Tod Glass V. [facility] DIFFERENTIAL [facility] COMPREHENSIVE METABOLIC 2021-10-21 11:02:00 Tod Glass V. [facility] PANEL [facility] MAGNESIUM LEVEL 2021-10-21 11:02:00 Tod Glass V. [facility] PHOSPHORUS LEVEL 2021-10-21 11:02:00 Tod Glass V. [facility] Results CBC 2021-10-21 11:02:00 Tod Glass V. [facility] MANUAL DIFFERENTIAL 2021-10-21 11:02:00 Tod Glass V. [facility] GLUCOSE LEVEL 2021-10-21 11:02:00 Tod Glass V. [facility] BLOOD UREA NITROGEN 2021-10-21 11:02:00 Tod Glass V. [facility] ELECTROLYTE PANEL 2021-10-21 11:02:00 Tod Glass V. [facility] SERUM CREATININE 2021-10-21 11:02:00 Tod Glass V. [facility] .GLOMERULAR FILTRATION 2021-10-21 11:02:00 Tod Glass [facility] CALCIUM LEVEL TOTAL 2021-10-21 11:02:00 Tod Glass V. [facility] ALBUMIN LEVEL 2021-10-21 11:02:00 Tod Glass V. [facility] ALKALINE PHOSPHATASE 2021-10-21 11:02:00 Tod Glass V. [facility] ALANINE AMINOTRANSFERASE 2021-10-21 11:02:00 Tod Glass V. [facility] ASPARTATE AMINOTRANSFERASE 2021-10-21 11:02:00 [facility] TOTAL PROTEIN 2021-10-21 11:02:00 Tod Glass V. [facility] FRACTIONATED BILIRUBIN 2021-10-21 11:02:00 Tod Glass [facility]. [facility] EKG, 12-LEAD (PORTABLE) 2021-10-21 00:00:00 Tod Glass V. [facility] XR ABDOMEN 1 VW PORTABLE 2021-10-20 19:19:00 Tod Glass V. [facility] OSCILLATORY PEP 2021-10-20 19:00:49 Tod Glass V. [facility] OSCILLATORY PEP 2021-10-20 13:00:11 Tod Glass V. [facility] COMPLETE BLOOD COUNT W/ 2021-10-20 11:10:00 Tod Glass V. [facility] DIFFERENTIAL [facility] COMPREHENSIVE METABOLIC 2021-10-20 11:10:00 Tod Glass V. [facility] PANEL [facility] MAGNESIUM LEVEL 2021-10-20 11:10:00 Tod Glass V. [facility] PHOSPHORUS LEVEL 2021-10-20 11:10:00 Tod Glass V. [facility] Results CBC 2021-10-20 11:10:00 Tod Glass V. [facility] MANUAL DIFFERENTIAL 2021-10-20 11:10:00 Tod Glass V. [facility] GLUCOSE LEVEL 2021-10-20 11:10:00 Tod Glass V. [facility] BLOOD UREA NITROGEN 2021-10-20 11:10:00 Tod Glass V. [facility] ELECTROLYTE PANEL 2021-10-20 11:10:00 Tod Glass V. [facility] SERUM CREATININE 2021-10-20 11:10:00 Tod Glass V. [facility] .GLOMERULAR FILTRATION 2021-10-20 11:10:00 Tod Glass [facility] CALCIUM LEVEL TOTAL 2021-10-20 11:10:00 Tod Glass V. [facility] ALBUMIN LEVEL 2021-10-20 11:10:00 Tod Glass V. [facility] ALKALINE PHOSPHATASE 2021-10-20 11:10:00 Tod Glass V. [facility] ALANINE AMINOTRANSFERASE 2021-10-20 11:10:00 Tod Glass V. Uni [facility] ASPARTATE AMINOTRANSFERASE 2021-10-20 11:10:00 [facility] TOTAL PROTEIN 2021-10-20 11:10:00 Tod Glass V. [facility] FRACTIONATED BILIRUBIN 2021-10-20 11:10:00 Tod Glass [facility] OSCILLATORY PEP 2021-10-20 01:00:09 Tod Glass V. [facility] OSCILLATORY PEP 2021-10-19 19:00:53 Tod Glass V. [facility] PATHOLOGY BIOPSY 2021-10-19 18:35:00 Edwige Rod [facility] INTERPRETATION [facility] UPPER GASTROINTESTINAL 2021-10-19 18:14:00 [facility], MD [facility] d[facility] ST[facility], AND DUODENUM WITH Cente r BIOPSY OSCILLATORY PEP 2021-10-19 14:01:42 Tod Glass V. [facility] COMPLETE BLOOD COUNT W/ 2021-10-19 12:18:00 Tod Glass V. [facility] DIFFERENTIAL [facility] COMPREHENSIVE METABOLIC 2021-10-19 12:18:00 Tod Glass V. [facility] PANEL [facility] MAGNESIUM LEVEL 2021-10-19 12:18:00 Tod Glass V. [facility] PHOSPHORUS LEVEL 2021-10-19 12:18:00 Tod Glass V. [facility] Results CBC 2021-10-19 12:18:00 Tod Glass V. [facility] MANUAL DIFFERENTIAL 2021-10-19 12:18:00 Tod Glass V. [facility] GLUCOSE LEVEL 2021-10-19 12:18:00 Tod Glass V. [facility] BLOOD UREA NITROGEN 2021-10-19 12:18:00 Tod Glass V. [facility] ELECTROLYTE PANEL 2021-10-19 12:18:00 Tod Glass V. [facility] SERUM CREATININE 2021-10-19 12:18:00 Tod Glass V. [facility] .GLOMERULAR FILTRATION 2021-10-19 12:18:00 Tod Glass [facility] RATE [facility] CALCIUM LEVEL TOTAL 2021-10-19 12:18:00 Tod Glass V. [facility] ALBUMIN LEVEL 2021-10-19 12:18:00 Tod Glass V. [facility] ALKALINE PHOSPHATASE 2021-10-19 12:18:00 Tod Glass [facility]. [facility] ALANINE AMINOTRANSFERASE 2021-10-19 12:18:00 [facility] ASPARTATE AMINOTRANSFERASE 2021-10-19 12:18:00 [facility] TOTAL PROTEIN 2021-10-19 12:18:00 Tod Glass V. [facility] FRACTIONATED BILIRUBIN 2021-10-19 12:18:00 Tod Glass [facility] XR CHEST 1 VW 2021-10-18 21:15:00 Tod Glass V. [facility] POC GLUCOSE SCREEN 2021-10-18 11:47:00 Tod Glass V. [facility] COMPLETE BLOOD COUNT W/ 2021-10-18 09:25:00 Tod Glass V. [facility] DIFFERENTIAL [facility] COMPREHENSIVE METABOLIC 2021-10-18 09:25:00 Tod Glass V. [facility] PANEL [facility] MAGNESIUM LEVEL 2021-10-18 09:25:00 Tod Glass V. [facility] PHOSPHORUS LEVEL 2021-10-18 09:25:00 Tod Glass V. [facility] Results CBC 2021-10-18 09:25:00 Tod Glass V. [facility] MANUAL DIFFERENTIAL 2021-10-18 09:25:00 Tod Glass V. [facility] GLUCOSE LEVEL 2021-10-18 09:25:00 Tod Glass V. [facility] BLOOD UREA NITROGEN 2021-10-18 09:25:00 Tod Glass V. [facility] ELECTROLYTE PANEL 2021-10-18 09:25:00 Tod Glass V. [facility] SERUM CREATININE 2021-10-18 09:25:00 Tod Glass V. [facility] .GLOMERULAR FILTRATION 2021-10-18 09:25:00 Tod Glass [facility] CALCIUM LEVEL TOTAL 2021-10-18 09:25:00 [facility] ALBUMIN LEVEL 2021-10-18 09:25:00 Tod Glass V. [facility] ALKALINE PHOSPHATASE 2021-10-18 09:25:00 Tod Glass V. [facility] ALANINE AMINOTRANSFERASE 2021-10-18 09:25:00 Tod Glass [facility] ASPARTATE AMINOTRANSFERASE 2021-10-18 09:25:00 Tod Glass [facility]. [facility] TOTAL PROTEIN 2021-10-18 09:25:00 Tod Glass V. [facility] FRACTIONATED BILIRUBIN 2021-10-18 09:25:00 Tod Glass [facility] OSCILLATORY PEP 2021-10-18 07:00:10 Tod Glass V. [facility] OSCILLATORY PEP 2021-10-18 01:00:07 Tod Glass V. [facility] OSCILLATORY PEP 2021-10-17 19:01:02 Tod Glass V. [facility] VANCOMYCIN LEVEL TROUGH 2021-10-17 16:50:00 Tod Glass V. [facility] OSCILLATORY PEP 2021-10-17 14:31:30 Tod Glass V. [facility] COMPLETE BLOOD COUNT W/ 2021-10-17 08:59:00 Tod Glass V. [facility] DIFFERENTIAL [facility] COMPREHENSIVE METABOLIC 2021-10-17 08:59:00 Tod Glass V. [facility] PANEL [facility] MAGNESIUM LEVEL 2021-10-17 08:59:00 Tod Glass V. [facility] PHOSPHORUS LEVEL 2021-10-17 08:59:00 Tod Glass V. [facility] Results CBC 2021-10-17 08:59:00 Tod Glass V. [facility] MANUAL DIFFERENTIAL 2021-10-17 08:59:00 Tod Glass V. [facility] GLUCOSE LEVEL 2021-10-17 08:59:00 Tod Glass V. [facility] BLOOD UREA NITROGEN 2021-10-17 08:59:00 Tod Glass V. [facility] ELECTROLYTE PANEL 2021-10-17 08:59:00 Tod Glass V. [facility] SERUM CREATININE 2021-10-17 08:59:00 Tod Glass V. [facility] .GLOMERULAR FILTRATION 2021-10-17 08:59:00 Tod Glass [facility] CALCIUM LEVEL TOTAL 2021-10-17 08:59:00 Tod Glass V. [facility] ALBUMIN LEVEL 2021-10-17 08:59:00 Tod Glass V. [facility] ALKALINE PHOSPHATASE 2021-10-17 08:59:00 Tod Glass V. Univers [facility] ALANINE AMINOTRANSFERASE 2021-10-17 08:59:00 Tod [facility]. [facility] ASPARTATE AMINOTRANSFERASE 2021-10-17 08:59:00 Tod Glass [facility]. [facility] TOTAL PROTEIN 2021-10-17 08:59:00 Tod Glass V. [facility] FRACTIONATED BILIRUBIN 2021-10-17 08:59:00 Tod Glass [facility] PROCALCITONIN 2021-10-17 08:59:00 Tod Glass V. [facility] f [facility] FUNGITELL, SERUM 2021-10-17 08:59:00 Tod Glass V. [facility] [place] MODIFIED BARIUM SWALLOW 2021-10-16 19:57:25 [facility]CH [facility] RESPIRATORY VIRAL PANEL, 2021-10-16 13:05:00 Tod Glass V. [facility] NASOPHARYNGEAL SWAB [facility] RESPIRATORY PCR PANEL, ROUTE JUMPER 2021-10-16 13:05:00 Tod Glass [facility] [facility] SWAB [facility] RESPIRATORY PCR PANEL PATH 2021-10-16 13:05:00 [facility] SCREENING CULTURE 2021-10-15 21:25:00 Bea [facility]azzi [facility] TROPONIN T 2021-10-15 18:15:00 Verónica Thakkar [facility] CT CHEST PULMONARY 2021-10-15 17:58:06 Verónica Thakkar [facility] EMBOLISM CONTRAST [facility] LEGIONELLA URINE ANTIGEN 2021-10-15 17:17:00 Verónica Thakkar [facility] STREPTOCOCCUS PNEUMONIAE 2021-10-15 17:17:00 Verónica Thakkar [facility] URINE ANTIGEN [facility] STREPTOCOCCAL URINE 2021-10-15 17:17:00 Verónica Thakkar [facility] ANTIGEN PATH REVIEW [facility] LEGIONELLA URINE ANTIGEN 2021-10-15 17:17:00 Verónica Thakkar [facility] FUNGITELL, SERUM 2021-10-15 16:43:00 Bijan Verónica [facility] COVID-19 (SARS-COV-2) 2021-10-15 15:08:00 Verónica Thakkar [facility] ASYMPTOMATIC-LT [facility] BLOODCULTURE 2021-10-15 15:08:00 [facility]OWER [facility]PIRAT[facility] CULTURE 2021-10-15 15:08:[address] [facility] W/ GRAM STAIN [facility] COMPREHENSIVE METABOLIC 2021-10-15 15:08:00 Verónica Thakkar [facility] PANEL [facility] MAGNESIUM LEVEL 2021-10-15 15:08:00 Bijan [facility] PHOSPHORUS LEVEL 2021-10-15 15:08:00 Bijan [facility] LACTATE DEHYDROGENASE 2021-10-15 15:08:00 Bijan Verónica [facility] PROCALCITONIN 2021-10-15 15:08:00 Bijan [facility] TROPONIN T 2021-10-15 15:08:00 Bijan [facility] CREATINE KINASE 2021-10-15 15:08:00 Bijan [facility] CKMB 2021-10-15 15:08:00 Bijan [facility] NT PRO BNP 2021-10-15 15:08:00 Bijan [facility] COMPLETE BLOOD COUNT W/ 2021-10-15 15:08:00 Bijan Verónica [facility] DIFFERENTIAL [facility] PROTHROMBIN TIME 2021-10-15 15:08:00 Bijan [facility] APTT 2021-10-15 15:08:00 Bijan [facility] GLUCOSE LEVEL 2021-10-15 15:08:00 Bijan [facility] BLOOD UREA NITROGEN 2021-10-15 15:08:00 Bijan [facility] ELECTROLYTE PANEL 2021-10-15 15:08:00 Bijan [facility] SERUM CREATININE 2021-10-15 15:08:00 Bijan [facility] .GLOMERULAR FILTRATION 2021-10-15 15:08:00 Verónica Thakkar [facility] RATE [facility] CALCIUM LEVEL TOTAL 2021-10-15 15:08:00 Verónica Thakkar [facility] ALBUMIN LEVEL 2021-10-15 15:08:00 Bijan Verónica [facility] ALKALINE PHOSPHATASE 2021-10-15 15:08:00 Verónica Thakkar [facility] ALANINE AMINOTRANSFERASE 2021-10-15 15:08:00 Verónica Thakkar [facility] ASPARTATE AMINOTRANSFERASE 2021-10-15 15:08:00 Verónica [facility] TOTAL PROTEIN 2021-10-15 15:08:00 Bijan [facility] FRACTIONATED BILIRUBIN 2021-10-15 15:08:00 Verónica [facility]akkar [facility] Results CBC 2021-10-15 15:08:00 Bijan [facility] MANUAL DIFFERENTIAL 2021-10-15 15:08:00 Verónica Thakkar [facility] XR CHEST 1 VW 2021-10-15 14:45:00 Bijan [facility] EKG, 12-LEAD (PORTABLE) 2021-10-15 00:00:00 Verónica Thakkar [facility] COMPLETE BLOOD COUNT W/ 2021-09-05 11:48:00 Inez Lagunas [facility] DIFFERENTIAL [facility] COMPREHENSIVE METABOLIC 2021-09-05 11:48:00 Inez Lagunas [facility] PANEL [facility] MAGNESIUM LEVEL 2021-09-05 11:48:00 Bebo [facility] PHOSPHORUS LEVEL 2021-09-05 11:48:00 Bebo [facility] Results CBC 2021-09-05 11:48:00 Bebo [facility] MANUAL DIFFERENTIAL 2021-09-05 11:48:00 Bebo [facility] GLUCOSE LEVEL 2021-09-05 11:48:00 Bebo [facility] BLOOD UREA NITROGEN 2021-09-05 11:48:00 Bebo [facility] ELECTROLYTE PANEL 2021-09-05 11:48:00 Bebo [facility] SERUM CREATININE 2021-09-05 11:48:00 Bebo [facility] .GLOMERULAR FILTRATION 2021-09-05 11:48:00 [facility] CALCIUM LEVEL TOTAL 2021-09-05 11:48:00 Bebo [facility] ALBUMIN LEVEL 2021-09-05 11:48:00 Bebo [facility] ALKALINE PHOSPHATASE 2021-09-05 11:48:00 Bebo [facility] ity [facility] ALANINE AMINOTRANSFERASE 2021-09-05 11:48:00 Bebo [facility] ASPARTATE AMINOTRANSFERASE 2021-09-05 11:48:00 [facility] TOTAL PROTEIN 2021-09-05 11:48:00 Inez Lagunas [facility] FRACTIONATED BILIRUBIN 2021-09-05 11:48:00 [facility]ez [facility] STREPTOCOCCUS PNEUMONIAE 2021-09-04 19:38:00 Inez [facility]as [facility] [place] URINE ANTIGEN [facility] LEGIONELLA URINE ANTIGEN 2021-09-04 19:38:00 [facility] LEGIONELLA URINE ANTIGEN 2021-09-04 19:38:[address] [facility] PATH REVIEW [facility] STREPTOCOCCAL URINE 2021-09-04 19:38:00 [facility] ANTIGEN PATH REVIEW [facility] LOWER RESPIRATORY CULTURE 2021-09-04 19:36:[address] [facility] W/ GRAM STAIN [facility] BASIC METABOLIC PANEL, 2021-09-04 09:51:00 Verónica Thakkar [facility] CALCIUM TOTAL [facility] MAGNESIUM LEVEL 2021-09-04 09:51:00 Bijan [facility] PHOSPHORUS LEVEL 2021-09-04 09:51:00 Bijan [facility] TROPONIN T 2021-09-04 09:51:00 Aisha Mehrdad [facility] GLUCOSE LEVEL 2021-09-04 09:51:00 Bijan [facility] BLOOD UREA NITROGEN 2021-09-04 09:51:00 Bijan [facility] ELECTROLYTE PANEL 2021-09-04 09:51:00 Bijan [facility] SERUM CREATININE 2021-09-04 09:51:00 Bijan [facility] .GLOMERULAR FILTRATION 2021-09-04 09:51:00 [facility]ica [facility] RATE [facility] CALCIUM LEVEL TOTAL 2021-09-04 09:51:00 Bijan Verónica [facility] TROPONIN T 2021-09-04 03:49:00 Bijan [facility] CREATINE KINASE 2021-09-04 03:49:00 Bijan [facility] CKMB 2021-09-04 03:49:00 Bijan [facility] CT CHEST PULMONARY 2021-09-04 03:46:45 Verónica Thakkar [facility] EMBOLISM W CONTRAST [facility] [place] XR CHEST 1 VW 2021-09-03 23:40:27 Jyoti Morales [facility] RESPIRATORY VIRAL PANEL + 2021-09-03 23:14:[address] [facility] COVID-19, NASOPHARYNGEAL MD [facility] COMPLETE BLOOD COUNT W/ 2021-09-03 21:54:[address] [facility] DIFFERENTIAL [facility] COMPREHENSIVE METABOLIC 2021-09-03 21:54:[address] [facility] PANEL [facility] MAGNESIUM LEVEL 2021-09-03 21:54:00 Jyoti Morales [facility] PHOSPHORUS LEVEL 2021-09-03 21:54:00 Jyoti Morales [facility] NT PRO BNP 2021-09-03 21:54:00 Jyoti Morales [facility] TROPONIN T 2021-09-03 21:54:00 Jyoti Morales [facility] Results CBC 2021-09-03 21:54:00 Jyoti Morales [facility] MANUAL DIFFERENTIAL 2021-09-03 21:54:00 Jyoti Morales [facility] GLUCOSE LEVEL 2021-09-03 21:54:00 Jyoti Morales [facility] BLOOD UREA NITROGEN 2021-09-03 21:54:00 Jyoti Morales [facility] ELECTROLYTE PANEL 2021-09-03 21:54:00 Jyoti Morales [facility] SERUM CREATININE 2021-09-03 21:54:00 Jyoti Morales [facility] .GLOMERULAR FILTRATION 2021-09-03 21:54:00 Jyoti Morales [facility] RATE [facility] CALCIUM LEVEL TOTAL 2021-09-03 21:54:00 Jyoti Morales [facility] ALBUMIN LEVEL 2021-09-03 21:54:00 Jyoti Morales [facility] ALKALINE PHOSPHATASE 2021-09-03 21:54:00 Jyoti Morales [facility] ALANINE AMINOTRANSFERASE 2021-09-03 21:54:00 J[facility]oti [facility] ASPARTATE AMINOTRANSFERASE 2021-09-03 21:54:00 Jyoti Morales U [facility] TOTAL PROTEIN 2021-09-03 21:54:00 Jyoti Morales [place] [facility] FRACTIONATED BILIRUBIN 2021-09-03 21:54:00 J[facility]oti [facility] EKG, 12-LEAD (PORTABLE) 2021-09-03 00:00:00 Jyoti Morales [facility] CT CHEST W CONTRAST 2021-08-13 14:15:24 Nicole Del Rosario [facility] POC CREATININE 2021-08-13 13:30:00 Nicole Del Rosario [facility] REPLACEMENT OF GASTROSTOMY 2021-05-22 04:50:00 Claude Tobin [facility] TUBE, PERCUTANEOUS, [facility] Cancer INCLUDES REMOVAL, WHEN Center PERFORMED, WITHOUT IMAGING OR ENDOSCOPIC GUIDANCE; NOT REQUIRING REVISION OF GASTROSTOMY TRACT CT CHEST ABDOMEN PELVIS W 2021-04-20 19:35:00 Jackie Mendez [facility] CONTRAST [facility] POC CREATININE 2021-04-20 18:02:00 Maria Fernanda [place] [facility] MRI BRAIN W WO CONTRAST 2021-04-20 16:10:00 Jackie Mendez [facility] Plan of Care Planned Activity Planned Date Details Comments Source Future Scheduled 2022-04-22 COVID-19 Vaccination [facility] [place] Test 12:55:29 (#1) [code = COVID-19 [facility] (#1)] Center Future Scheduled 2022-03-12 COVID-19 Vaccination [facility] [place] Test 13:14:08 (#1) [code = COVID-19 [facility] Vaccination (#1)] Center Future Scheduled 2022-02-28 COVID-19 Vaccination [facility] [place] Test 13:30:15 (#1) [code = COVID-19 MD And janiceon Cancer Vaccination (#1)] Center Encounters Start End Encounter Admission Attending Care Care Encounter Source Date/Time Date/Time Type Type Clinicians Facility Department ID 2021-04-30 Emergency [facility] [id number] Univers 04:07:38 ity of [facility] 2020-04-12 Outpatient MDA ANUJ [id number] 16:09:07 Fuentes zimmerman 2020-02-14 Outpatient SYSTEM, [facility] ANUJ [id number] 13:23:33 PROVIDER Bakari zimmerman 2021-12-28 2021-12-28 Nurse Lazaro, 1.2.840.1 [id number] Univers 00:00:00 00:00:00 Triage Constantine 56904.1.1 ity of 3.412.2.7 [place] .3.522430 .8 [facility] 2021-12-28 2021-12-28 Documentat Padmini, 1.2.840.1 [id number] 1 [id number] Univers 00:00:00 00:00:00 ion Maria Fernanda V. 17200.1.1 ity of 3.412.2.7 [place] .3.045372 MD Haines8 [facility] 2021-12-28 2021-12-28 Nurse Lazaro, 1.2.840.1 [id number] Univers 00:00:00 00:00:00 Triage Constantine 49246.1.1 ity of 3.412.2.7 [place] .3.741045 MD Haines8 [facility] 2021-12-28 2021-12-28 Documentat Padmini, 1.2.840.1 [id number] Univers 00:00:00 00:00:00 ion Maria Fernanda V. 30716.1.1 ity of 3.412.2.7 [place] .3.306345 MD Haines8 [facility] 2021-12-20 2021-12-20 Telephone Ger, 1.2.840.1 [id number] Univers 00:00:00 00:00:00 Lolita 26222.1.1 ity of [place] 3.412.2.7 [place] .3.273895 MD Haines8 [facility] 2021-12-20 2021-12-20 Telephone Hersoni, 1.2.840.1 [id number] 1 [id number] Univers 00:00:00 00:00:00 Lolita 29120.1.1 ity of [place] 3.412.2.7 [place] .3.144809 MD Haines8 [facility] 2021-12-11 2021-12-11 Telephone Nuvia, 1.2.840.1 [id number] Univers 00:00:00 00:00:00 Bibiana Trevino 08624.1.1 ity of 3.412.2.7 [place] .3.520592 MD Haines8 [facility] 2021-12-11 2021-12-11 Telephone Nuvia, 1.2.840.1 [id number] Univers 00:00:00 00:00:00 Bibiana Trevino 49426.1.1 ity of 3.412.2.7 [place] .3.980837 MD Haines8 [facility] 2021-12-05 2021-12-05 Telephone Tyson, 1.2.840.1 [id number] Univers 00:00:00 00:00:00 Kasie Lehman 66570.1.1 i ty of 3.412.2.7 [place] .3.490141 MD Haines8 [facility] 2021-12-05 2021-12-05 Telephone Tyson 1.2.840.1 [id number] Univers 00:00:00 00:00:00 Kasie Lehman 12762.1.1 i ty of 3.412.2.7 [place] .3.944179 MD Haines8 [facility] 2021-12-01 2021-12-01 Nurse Marshall, 1.2.840.1 [id number] Univers 00:00:00 00:00:00 Mario Lehman 72980.1.1 i ty of 3.412.2.7 [place] .3.207053 MD Haines8 [facility] 2021-12-01 2021-12-01 Nurse Marshall, 1.2.840.1 [id number] Univers 00:00:00 00:00:00 Triage Erin Lehman 43620.1.1 i ty of 3.412.2.7 [place] .3.093770 MD Haines8 [facility] 2021-11-13 2021-11-13 Raul Clark 1.2.840.1 [id number] Univers 00:00:00 00:00:00 Only Stella 45099.1.1 it y of 3.412.2.7 [place] .3.688345 MD Haines8 [facility] 2021-11-13 2021-11-13 Telephone Edmund 1.2.840.1 [id number] Univers 00:00:00 00:00:00 Daisy Zimmerman 33953.1.1 it y of 3.412.2.7 [place] .3.668948 MD Haines8 [facility] 2021-11-13 2021-11-13 Raul Clark 1.2.840.1 [id number] Univers 00:00:00 00:00:00 Only Stella 79015.1.1 it y of 3.412.2.7 [place] .3.866446 MD Haines8 [facility] 2021-11-13 2021-11-13 Telephone Edmund 1.2.840.1 [id number] Univers 00:00:00 00:00:00 Daisy Zimmerman 40671.1.1 it y of 3.412.2.7 [place] .3.489006 MD Haines8 [facility] 2021-11-02 2021-11-02 Fito Huber 1.2.840.1 [id number] Univers 00:00:00 00:00:00 Only Herrera 63831.1.1 ity of 3.412.2.7 [place] .3.339161 MD Haines8 [facility] 2021-11-02 2021-11-02 Karishma Haider 1.2.840.1 [id number] Univers 00:00:00 00:00:00 Triage J 90384.1.1 ity of 3.412.2.7 [place] .3.140862 .8 [facility] 2021-11-02 2021-11-02 Raul Fito Gutierres 1.2.840.1 [id number] Univers 00:00:00 00:00:00 Only Herrera 71221.1.1 ity of 3.412.2.7 [place] .3.719346 .8 [facility] 2021-11-02 2021-11-02 Karishma Haider 1.2.840.1 [id number] Univers 00:00:00 00:00:00 Triage J 93349.1.1 ity of 3.412.2.7 [place] .3.444892 .8 [facility] 2021-10-15 2021-10-24 [facility] 1.2.840.1 [id number] Univers 09:35:00 17:00:00 Encounter Napoleon, Mayoora 47080.1.1 ity of [place], Ed 3.412.2.7 Gio as Tod Glass V. .3.189200 Boni Dominguez .8 [facility] 2021-10-15 2021-10-24 [facility] 1.2.840.1 [id number] Univers 09:35:00 17:00:00 Encounter Napoleon, Mayoora 87002.1.1 ity of [place], Ed 3.412.2.7 Gio as Tod Glass V. .3.653755 Boni Domignuez .8 [facility] 2021-10-24 2021-10-24 Nurse Paz 1.2.840.1 [id number] Univers 00:00:00 00:00:00 Triage Amsha 26936.1.1 ity of 3.412.2.7 [place] .3.849445 .8 [facility] 2021-10-24 2021-10-24 Nurse Jackson, 1.2.840.1 [id number] Univers 00:00:00 00:00:00 Triage Amsha 79016.1.1 ity of 3.412.2.7 [place] .3.501785 .8 [facility] 2021-10-23 2021-10-23 Inpatient ALEXUS, [facility] [id number] 20:59:49 21:16:07 BONIANI Villegas o n 2021-10-19 2021-10-19 Surgery Rod, 1.2.840.1 [id number] Univers 15:10:00 15:50:00 Gibbons 30555.1.1 ity of Ali 3.412.2.7 [place] .3.286769 MD Haines8 [facility] 2021-10-19 2021-10-19 Surgery Rod, 1.2.840.1 [id number] Univers 15:10:00 15:50:00 Gibbons 92115.1.1 ity of Ali 3.412.2.7 [place] .3.422553 .8 [facility] 2021-10-19 2021-10-19 Anesthesia Popat, Keyuri 1.2.840.1 [id number] Univers 13:24:00 13:49:00 Event Dhiraj Fry 21809.1.1 ity of 3.412.2.7 [place] .3.265204 .8 [facility] 2021-10-19 2021-10-19 Anesthesia Popat, Keyuri 1.2.840.1 [id number] Univers 13:24:00 13:49:00 Event Dhiraj Fry 37272.1.1 ity of 3.412.2.7 [place] .3.744395 MD Haines8 [facility] 2021-10-18 2021-10-18 Prep for O'Brandon, 1.2.840.1 [id number] Univers 00:00:00 00:00:00 Surgery Shena 92389.1.1 [place] .3.147453 [place] Haines8 [facility] 2021-10-18 2021-10-18 Prep for Jacquelyn, 1.2.840.1 [id number] Univers 00:00:00 00:00:00 Surgery Shena 55223.1.1 [place] .3.934631 MD Haines8 [facility] 2021-10-17 2021-10-17 Inpatient EL MARIA LUISA, SON MDA MDA [id number] 11:46:00 11:46:04 [facility] erasmo 2021-10-16 2021-10-16 Inpatient EL PADMINI, MDA MDA [id number] 14:52:17 14:52:20 MARIA FERNANDA Villegas erasmo 2021-10-16 2021-10-16 Inpatient EL CORDELLELLA, MDA MDA [id number] 10:37:11 10:37:14 MARIA FERNANDA Villegas erasmo 2021-10-16 2021-10-16 Inpatient EL CORDELLELLA, MDA MDA [id number] 10:05:03 10:05:06 MARIA FERNANDA zimmerman 2021-10-15 2021-10-15 Inpatient [facility], ED MDA MDA [id number] 23:20:17 23:40:10 [facility] 2021-10-15 2021-10-15 Travel 1.2.840.1 1.2.504.334 [id number] Univers 00:00:00 00:00:00 99385.1.1 350.1.13.41 ity of 3.412.2.7 [place]3.698 [place] .[place].622[place] 084.8 MD Haines8 [facility] 2021-10-15 2021-10-15 Travel 1.2.840.1 1.2.822.530 [id number] Univers 00:00:00 00:00:00 15139.1.1 350.1.13.41 ity of 3.412.2.7 [place]7.3.698 [place] .3.296164 084.8 MD Haines8 [facility] 2021-10-11 2021-10-11 Orders Amber, 1.2.840.1 [id number] Univers 00:00:00 00:00:00 Only Stella 63589.1.1 it y of 3.412.2.7 [place] .3.314497 MD Haines8 [facility] 2021-10-11 2021-10-11 Orders Amber, 1.2.840.1 [id number] Univers 00:00:00 00:00:00 Only Stella 20515.1.1 it y of 3.412.2.7 [place] .3.448277 MD Beasley [facility] 2021-10-10 2021-10-10 Orders Shantal 1.2.840.1 [id number] Univers 00:00:00 00:00:00 Only Kaylyn 60925.1.1 ity of Deshawn 3.412.2.7 [place] .3.639015 MD Beasley [facility] 2021-10-10 2021-10-10 Nurse Moran, 1.2.840.1 [id number] Univers 00:00:00 00:00:00 Triage Stella Stewart 38817.1.1 ity of 3.412.2.7 [place] .3.530336 MD Beasley [facility] 2021-10-10 2021-10-10 Uzma Thrasher 1.2.840.1 [id number] Univers 00:00:00 00:00:00 Ileana Ann 35287.1.1 i ty of 3.412.2.7 [place] .3.820918 MD Beasley [facility] 2021-10-10 2021-10-10 Orders Shantal 1.2.840.1 [id number] Univers 00:00:00 00:00:00 Only Kaylyn 86486.1.1 ity of Deshawn 3.412.2.7 [place] .3.270132 MD Haines8 [facility] 2021-10-10 2021-10-10 Nurse Dean, 1.2.840.1 [id number] Univers 00:00:00 00:00:00 Triage Stella Pat 30687.1.1 ity of 3.412.2.7 [place] .3.378109 MD Haines8 [facility] 2021-10-10 2021-10-10 Telephone Price, 1.2.840.1 [id number] Univers 00:00:00 00:00:00 Ileana Ann 07188.1.1 i ty of 3.412.2.7 [place] .3.094954 MD Haines8 [facility] 2021-09-03 2021-09-07 [facility] 1.2.840.1 [id number] Univers 16:59:00 15:45:00 Encounter Mehrdad Rod 55580.1.1 ity of Gurpreet Estes 3.412.2.7 [place] .3.916309 MD Haines8 [facility] 2021-09-03 2021-09-07 [facility] 1.2.840.1 [id number] Univers 16:59:00 15:45:00 Encounter Mehrdad Rod 54865.1.1 ity of Gurpreet Estes 3.412.2.7 [place] .3.798625 MD Haines8 [facility] 2021-09-07 2021-09-07 Travel 1.2.840.1 1.2.360.976 [id number] Univers 00:00:00 00:00:00 94829.1.1 350.1.13.41 ity of 3.412.2.7 2.[place]7.3.698 [place] .3.044892 084.8 MD Haines8 [facility] 2021-09-07 2021-09-07 Travel 1.2.840.1 1.2.379.142 [id number] Univers 00:00:00 00:00:00 18988.1.1 350.1.13.41 ity of 3.412.2.7 2.[place].7.3.698 [place] .3.001180 084.8 MD Beasley [facility] 2021-09-05 2021-09-05 [facility] NICHOLE BUTTSJOSE ALBERTOANUJ [facility] [id number] 11:14:45 11:38:29 DANISH zimmerman 2021-09-03 2021-09-03 Travel 1.2.840.1 1.2.729.437 [id number] Univers 00:00:00 00:00:00 21241.1.1 350.1.13.41 ity of 3.412.2.7 2.[place]7.3.698 [place] .3.962924 084.8 MD Beasley [facility] 2021-09-03 2021-09-03 Telephone John, 1.2.840.1 [id number] Univers 00:00:00 00:00:00 Michael Lehman 99097.1.1 ity of 3.412.2.7 [place] .3.663374 MD Beasley [facility] 2021-09-03 2021-09-03 Travel 1.2.840.1 1.2.000.724 [id number] Univers 00:00:00 00:00:00 63484.1.1 350.1.13.41 ity of 3.412.2.7 2.2.7.3.698 [place] .3.314634 084.8 MD Beasley [facility] 2021-09-03 2021-09-03 Telephone John, 1.2.840.1 [id number] Univers 00:00:00 00:00:00 Michael Lehman 48132.1.1 ity of 3.412.2.7 [place] .3.881022 MD Beasley [facility] 2021-08-22 2021-08-22 Telephone Amber, 1.2.840.1 [id number] Univers 00:00:00 00:00:00 Stella 83290.1.1 it y of 3.412.2.7 [place] .3.214797 MD Haines8 [facility] 2021-08-22 2021-08-22 Raul Clark, 1.2.840.1 [id number] Univers 00:00:00 00:00:00 Only Stella 67437.1.1 it y of 3.412.2.7 [place] .3.577765 MD Haines8 [facility] 2021-08-22 2021-08-22 Uzma Clark 1.2.840.1 [id number] Univers 00:00:00 00:00:00 Stella 43235.1.1 it y of 3.412.2.7 [place] .3.049830 MD Haines8 [facility] 2021-08-22 2021-08-22 Raul Clark 1.2.840.1 [id number] Univers 00:00:00 00:00:00 Only Stella 81356.1.1 it y of 3.412.2.7 [place] .3.869101 MD Beasley [facility] 2021-08-20 2021-08-20 Raul Sanon 1.2.840.1 [id number] Univers 00:00:00 00:00:00 Only Jincy A 58861.1.1 ity of 3.412.2.7 [place] .3.169346 MD Beasley [facility] 2021-08-20 2021-08-20 Raul Sanon 1.2.840.1 [id number] Univers 00:00:00 00:00:00 Only Jincy A 30321.1.1 ity of 3.412.2.7 [place] .3Yancy840631 MD Beasley [facility] 2021-08-18 2021-08-18 Akin Tavera.2.840.1 [id number] Univers 00:00:00 00:00:00 Only Stella 79753.1.1 it y of 3.412.2.7 [place] .3Yancy625683 MD Beasley [facility] 2021-08-18 2021-08-18 Orders Padmini, 1.2.840.1 [id number] Univers 00:00:00 00:00:00 Only Maria Fernanda Fu 27457.1.1 ity of 3.412.2.7 [place] .3.174248 MD Haines8 [facility] 2021-08-18 2021-08-18 Orders Amber, 1.2.840.1 [id number] Univers 00:00:00 00:00:00 Only Stella 12460.1.1 it y of 3.412.2.7 [place] .3.489533 MD Haines8 [facility] 2021-08-18 2021-08-18 Orders Padmini, 1.2.840.1 [id number] Univers 00:00:00 00:00:00 Only Maria Fernanda Fu 05319.1.1 ity of 3.412.2.7 [place] .3.824296 MD Haines8 [facility] 2021-08-17 2021-08-17 Telephone Zulema Cedillo 1.2.840.1 [id number] Univers 00:00:00 00:00:00 A 26587.1.1 ity of 3.412.2.7 [place] .3.473542 MD Haines8 [facility] 2021-08-17 2021-08-17 Telephone Zulema Cedillo 1.2.840.1 [id number] Univers 00:00:00 00:00:00 A 70480.1.1 ity of 3.412.2.7 [place] .3.548670 MD Haines8 [facility] 2021-08-14 2021-08-14 Office Tadeo 1.2.840.1 [id number] Univers 12:15:00 13:20:09 Visit Herrera 91868.1.1 ity of 3.412.2.7 [place] .3.707742 MD Haines8 [facility] 2021-08-14 2021-08-14 Office NICHOLE Piedra 1.2.840.1 [id number] Univers 12:15:00 13:20:09 Visit Herrera 04249.1.1 ity of 3.412.2.7 [place] .3.345127 MD Haines8 [facility] 2021-08-14 2021-08-14 Office Padmini, 1.2.840.1 [id number] Univers 08:30:00 10:28:29 Visit Maria Fernanda Fu 79904.1.1 ity of 3.412.2.7 [place] .3.156082 MD Haines8 [facility] 2021-08-14 2021-08-14 Office NICHOLE [place], 1.2.840.1 [id number] Univers 08:30:00 10:28:29 Visit Maria Fernanda Fu 30793.1.1 ity of 3.412.2.7 [place] .3.319570 MD Beasley [facility] 2021-08-14 2021-08-14 Raul Banda, 1.2.840.1 [id number] Univers 00:00:00 00:00:00 Only Jacki 33037.1.1 ity of 3.412.2.7 [place] .3.491809 MD Beasley [facility] 2021-08-14 2021-08-14 Raul Duckworth, 1.2.840.1 [id number] Univers 00:00:00 00:00:00 Only Sarah Ybarra 29911.1.1 ity of 3.412.2.7 [place] .3.438812 MD Beasley [facility] 2021-08-14 2021-08-14 Travel 1.2.840.1 1.2.963.951 [id number] Univers 00:00:00 00:00:00 72711.1.1 350.1.13.41 ity of 3.412.2.7 2.[place].3.698 [place] .3.631536 084.8 MD [facility] 2021-08-14 2021-08-14 Raul Banda, 1.2.840.1 [id number] Univers 00:00:00 00:00:00 Only Jacki 96553.1.1 ity of 3.412.2.7 [place] .3.834528 MD [facility] 2021-08-14 2021-08-14 Orders Gucci, 1.2.840.1 [id number] Univers 00:00:00 00:00:00 Only Sarah Ybarra 69640.1.1 ity of 3.412.2.7 [place] .3.415947 MD [facility] 2021-08-14 2021-08-14 Travel 1.2.840.1 1.2.963.905 [id number] Univers 00:00:00 00:00:00 93623.1.1 350.1.13.41 ity of 3.412.2.7 2.[place].3.698 [place] .3.711445 084.8 MD [facility] 2021-08-13 2021-08-13 [facility] Raymundo Marr 1.2.840.1 [id number] Univers 09:45:00 23:59:00 Encounter 30255.1.1 it y of 3.412.2.7 [place] .3.185933 MD [facility] 2021-08-13 2021-08-13 [facility] Raymundo Marr 1.2.840.1 [id number] Univers 09:45:00 23:59:00 Encounter 20546.1.1 it y of 3.412.2.7 [place] .3.829567 MD [place]8 [facility] 2021-08-13 2021-08-13 [facility] Miguel Ángel, 1.2.840.1 [id number] Univers 06:35:00 09:44:00 Encounter Nicole 86580.1.1 it y of [place] 3.412.2.7 [place] .3.943402 MD Haines8 [facility] 2021-08-13 2021-08-13 [facility] NICHOLE Del Rosario, 1.2.840.1 [id number] Univers 06:35:00 09:44:00 Encounter Nicole 23346.1.1 it y of [place] 3.412.2.7 [place] .3.733395 MD [facility] 2021-08-13 2021-08-13 Raul Del Rosario, 1.2.840.1 [id number] Univers 00:00:00 00:00:00 Only Nicole 13667.1.1 ity of [place] 3.412.2.7 [place] .3.070663 MD [facility] 2021-08-13 2021-08-13 Travel 1.2.840.1 1.2.042.699 2361 [id number] Univers 00:00:00 00:00:00 34778.1.1 350.1.13.41 ity of 3.412.2.7 [place]3.698 [place] .[place].546339 084.8 MD [facility] 2021-08-13 2021-08-13 Raul Del Rosario, 1.2.840.1 [id number] 7561 Univers 00:00:00 00:00:00 Only Nicole 10334.1.1 ity of [place] 3.412.2.7 [place] .3.270051 MD [facility] 2021-08-13 2021-08-13 Travel 1.2.840.1 1.2.307.459 4816 [id number] Univers 00:00:00 00:00:00 11128.1.1 350.1.13.41 ity of 3.412.2.7 [place].3.698 [place].114927 084.8 MD [facility] 2021-08-11 2021-08-11 Angel Washington, 1.2.840.1 [id number] 1089 [id number] Univers 00:00:00 00:00:00 Maria Fernanda Fu 06133.1.1 ity of 3.412.2.7 [place] .3.412729 MD [facility] 2021-08-11 2021-08-11 Angel Washington, 1.2.840.1 [id number] 1089 [id number] Univers 00:00:00 00:00:00 Maria Fernanda Fu 72087.1.1 ity of 3.412.2.7 [place] .3.544216 MD [facility]8 [facility] 2021-08-07 2021-08-07 Raul Fenton, 1.2.840.1 [id number] 5493 Univers 00:00:00 00:00:00 Only Abdirizak 70241.1.1 ity of 3.412.2.7 [place] .3.648182 MD H[facility]8 [facility] 2021-08-07 2021-08-07 Raul Fenton, 1.2.840.1 [id number] 2075 Univers 00:00:00 00:00:00 Only Abdirizak 97769.1.1 ity of 3.412.2.7 [place] .3.756154 MD [facility]8 [facility] 2021-07-27 2021-07-27 Telephone Jarrett, 1.2.840.1 [id number] 1 [id number] Univers 00:00:00 00:00:00 Génesis Ann 27589.1.1 ity of 3.412.2.7 [place] .3.105662 MD [facility]8 [facility] 2021-07-27 2021-07-27 Angel Clark 1.2.840.1 [id number] 4562 Univers 00:00:00 00:00:00 Stella 69505.1.1 it y of 3.412.2.7 [place] .3.488625 MD [facility]8 [facility] 2021-07-27 2021-07-27 Telephone Farias, 1.2.840.1 [id number] 1 [id number] Univers 00:00:00 00:00:00 Génesis Ann 87436.1.1 ity of 3.412.2.7 [place] .3.564255 MD [facility]8 [facility] 2021-07-27 2021-07-27 Angel Clark 1.2.840.1 [id number] 3947 Univers 00:00:00 00:00:00 Stella 31877.1.1 it y of 3.412.2.7 [place] .3.450715 MD [facility]8 [facility] 2021-07-26 2021-07-26 Telephone Seagralexi, 1.2.840.1 [id number] 1 [id number] Univers 00:00:00 00:00:00 Génesis Trevino 02404.1.1 ity of 3.412.2.7 [place] .3.964455 MD [facility]8 [facility] 2021-07-26 2021-07-26 Raul Mendez, 1.2.840.1 [id number] Univers 00:00:00 00:00:00 Only Jackie 84862.1.1 ity of 3.412.2.7 [place] .3.787572 MD [facility]8 [facility] 2021-07-26 2021-07-26 Angel Clark, 1.2.840.1 [id number] 7738 Univers 00:00:00 00:00:00 Stella 31599.1.1 it y of 3.412.2.7 [place] .3.526530 MD [facility]8 [facility] 2021-07-26 2021-07-26 Telephone Seaderrick, 1.2.840.1 [id number] 1 [id number] Univers 00:00:00 00:00:00 Génesis Trevino 75943.1.1 ity of 3.412.2.7 [place] .3.438325 MD [facility]8 [facility] 2021-07-26 2021-07-26 Orders Andrea, 1.2.840.1 [id number] [id number] Univers 00:00:00 00:00:00 Only Jackie 50503.1.1 ity of 3.412.2.7 [place] .3.313871 MD [facility]8 [facility] 2021-07-26 2021-07-26 Angel Clark, 1.2.840.1 [id number] 5943 Univers 00:00:00 00:00:00 Stella 36477.1.1 it y of 3.412.2.7 [place] .3Yancy384191 MD [facility]aines8 [facility] 2021-07-19 2021-07-19 Telephone Edmund, 1.2.840.1 [id number] 1088 [id number] Univers 00:00:00 00:00:00 Daisy Zimmerman 89017.1.1 it y of 3.412.2.7 [place] .3.131664 MD [facility]8 [facility] 2021-07-19 2021-07-19 Telephone Edmund, 1.2.840.1 [id number] 1088 [id number] Univers 00:00:00 00:00:00 Daisy Zimmerman 52380.1.1 it y of 3.412.2.7 [place] .3.235794 MD [facility]8 [facility] 2021-07-12 2021-07-12 Telephone Amber, 1.2.840.1 [id number] 1088 [id number] Univers 00:00:00 00:00:00 Stella 21570.1.1 it y of 3.412.2.7 [place] .3.742357 MD [facility]8 [facility] 2021-07-12 2021-07-12 Telephone Amber, 1.2.840.1 [id number] 1088 [id number] Univers 00:00:00 00:00:00 Stella 57176.1.1 it y of 3.412.2.7 [place] .3.161051 MD [facility]8 [facility] 2021-07-11 2021-07-11 Orders Amber, 1.2.840.1 [id number] 5953 Univers 00:00:00 00:00:00 Only Stella 72430.1.1 it y of 3.412.2.7 [place] .3Yancy487605 MD [facility]8 [facility] 2021-07-11 2021-07-11 Telephone Price, 1.2.840.1 [id number] 1088 [id number] Univers 00:00:00 00:00:00 Ileana Ann 10658.1.1 i ty of 3.412.2.7 [place] .3.003645 MD [facility] 2021-07-11 2021-07-11 Raul Clark, 1.2.840.1 [id number] 1908 Univers 00:00:00 00:00:00 Only Stella 65367.1.1 it y of 3.412.2.7 [place] .3.348495 MD [facility]8 [facility] 2021-07-11 2021-07-11 Uzma Thrasher, 1.2.840.1 [id number] 1088 [id number] Univers 00:00:00 00:00:00 Ileana Seth 93406.1.1 i ty of 3.412.2.7 [place] .3.089454 MD [facility] 2021-07-02 2021-07-02 Raul Clark, 1.2.840.1 [id number] Univers 00:00:00 00:00:00 Only Stella 73291.1.1 it y of 3.412.2.7 [place] .3.655949 MD [facility] 2021-07-02 2021-07-02 Raul Clark, 1.2.840.1 [id number] 6060 Univers 00:00:00 00:00:00 Only Stella 50729.1.1 it y of 3.412.2.7 [place] .3.448032 MD [facility] 2021-06-27 2021-06-27 Raul Clark 1.2.840.1 [id number] 6308 Univers 00:00:00 00:00:00 Only Stella 77786.1.1 it y of 3.412.2.7 [place] .3.262917 MD [facility] 2021-06-27 2021-06-27 Raul Clark 1.2.840.1 [id number] 5455 Univers 00:00:00 00:00:00 Only Stella 28941.1.1 it y of 3.412.2.7 [place] .3Yancy966139 MD .8 [facility] 2021-06-25 2021-06-25 Raul Clark, 1.2.840.1 [id number] 1236 Univers 00:00:00 00:00:00 Only Stella 41339.1.1 it y of 3.412.2.7 [place] .3.308926 MD [facility]8 [facility] 2021-06-25 2021-06-25 Raul Clark, 1.2.840.1 [id number] 5764 Univers 00:00:00 00:00:00 Only Stella 76542.1.1 it y of 3.412.2.7 [place] .3.449650 MD [facility]8 [facility] 2021-06-14 2021-06-14 Telephone Ger, 1.2.840.1 [id number] 1 [id number] Univers 00:00:00 00:00:00 Lolita 55172.1.1 ity of [place] 3.412.2.7 [place] .3.554238 MD [facility]8 [facility] 2021-06-14 2021-06-14 Telephone Ger, 1.2.840.1 [id number] 1 [id number] Univers 00:00:00 00:00:00 Lolita 32830.1.1 ity of [place] 3.412.2.7 [place] .3Yancy506482 MD [facility] 2021-06-11 2021-06-11 Raul Clark, 1.2.840.1 [id number] 9727 Univers 00:00:00 00:00:00 Only Stella 87267.1.1 it y of 3.412.2.7 [place] .3Yancy183420 MD [facility]aines8 [facility] 2021-06-11 2021-06-11 Raul Clark 1.2.840.1 [id number] 3142 Univers 00:00:00 00:00:00 Only Stella 73671.1.1 it y of 3.412.2.7 [place] .3Yancy008374 MD [facility]8 [facility] 2021-06-09 2021-06-09 Angel Rivas, 1.2.840.1 [id number] 89344 Univers 00:00:00 00:00:00 Yudith Lehman 53444.1.1 ity of 3.412.2.7 [place] .3.787804 MD [facility]8 [facility] 2021-06-09 2021-06-09 Angel Rivas, 1.2.840.1 [id number] 88763 Univers 00:00:00 00:00:00 Yudith Lehman 27716.1.1 ity of 3.412.2.7 [place] .3.179480 MD [facility]8 [facility] 2021-06-06 2021-06-06 Telephone Seagroves, 1.2.840.1 [id number] 1 [id number] Univers 00:00:00 00:00:00 Génesis Trevino 35738.1.1 ity of 3.412.2.7 [place] .3.888326 MD [facility]8 [facility] 2021-06-06 2021-06-06 Telephone Seagroves, 1.2.840.1 [id number] 1 [id number] Univers 00:00:00 00:00:00 Génesis Trevino 62813.1.1 ity of 3.412.2.7 [place] .3.298002 MD [facility]8 [facility] 2021-05-21 2021-05-21 Surgery Tobin, 1.2.840.1 [id number] 0650 Univers 14:50:00 15:20:00 Claude 27612.1.1 ity of 3.412.2.7 [place] .3.935374 .8 [facility] 2021-05-21 2021-05-21 Surgery Tobin, 1.2.840.1 [id number] 0434 Univers 14:50:00 15:20:00 Claude 79438.1.1 ity of 3.412.2.7 [place] .3.531656 MD Haines8 [facility] 2021-05-21 2021-05-21 Hospital Tobin, 1.2.840.1 [id number] 70254 Univers 12:54:00 13:30:00 Encounter Claude 38790.1.1 it y of 3.412.2.7 [place] .3.962487 MD [facility] 2021-05-21 2021-05-21 [facility], 1.2.840.1 [id number] 72099 Univers 12:54:00 13:30:00 Encounter Claude 31194.1.1 it y of 3.412.2.7 [place] .3.674558 MD [facility] 2021-05-21 2021-05-21 Travel 1.2.840.1 1.2.306.809 8593 [id number] Univers 00:00:00 00:00:00 16883.1.1 350.1.13.41 ity of 3.412.2.7 [place].3.698 [place]3.1575[place] 084.Shaun [facility] 2021-05-21 2021-05-21 Travel 1.2.840.1 1.2.356.199 4616 [id number] Univers 00:00:00 00:00:00 72713.1.1 350.1.13.41 ity of 3.412.2.7 [place].3.698 [place] .3.340646 084.Shaun [facility] 2021-05-17 2021-05-17 Prep for Yannick, 1.2.840.1 [id number] 06110 [id number] Univers 00:00:00 00:00:00 Surgery [place] N 81993.1.1 it y of 3.412.2.7 [place] .3.775698 MD [facility] 2021-05-17 2021-05-17 Orders Amber, 1.2.840.1 [id number] Univers 00:00:00 00:00:00 Only Stella 65539.1.1 it y of 3.412.2.7 [place] .3.360739 MD [facility] 2021-05-17 2021-05-17 Prep for Yannick, 1.2.840.1 [id number] 69966 57326 Univers 00:00:00 00:00:00 Surgery [place] Erasmo 31506.1.1 it y of 3.412.2.7 [place] .3.662167 MD [facility]aines8 [facility] 2021-05-17 2021-05-17 Raul Clark, 1.2.840.1 [id number] Univers 00:00:00 00:00:00 Only Stella 05814.1.1 it y of 3.412.2.7 [place] .3.834736 MD Haines8 [facility] 2021-05-16 2021-05-16 Raul Clark, 1.2.840.1 [id number] 0470 Univers 00:00:00 00:00:00 Only Stella 97051.1.1 it y of 3.412.2.7 [place] .3.890196 MD Haines8 [facility] 2021-05-16 2021-05-16 Telephone Ger, 1.2.840.1 [id number] 1 [id number] Univers 00:00:00 00:00:00 Lolita 22451.1.1 ity of [place] 3.412.2.7 [place] .3.419924 MD [facility]aines8 [facility] 2021-05-16 2021-05-16 Telephone Ger, 1.2.840.1 [id number] 1 [id number] Univers 00:00:00 00:00:00 Lolita 33649.1.1 ity of [place] 3.412.2.7 [place] .3.786585 MD [facility]aines8 [facility] 2021-05-16 2021-05-16 Raul Clark, 1.2.840.1 [id number] 6128 Univers 00:00:00 00:00:00 Only Stella 64988.1.1 it y of 3.412.2.7 [place] .3.921869 MD Haines8 [facility] 2021-05-16 2021-05-16 Telephone Wrhannahski, 1.2.840.1 [id number] 1 [id number] Univers 00:00:00 00:00:00 Lolita 12536.1.1 ity of [place] 3.412.2.7 [place] .3.932548 MD [facility]8 [facility] 2021-05-16 2021-05-16 Telephone Ger, 1.2.840.1 [id number] 1 [id number] Univers 00:00:00 00:00:00 Lolita 46226.1.1 ity of [place] 3.412.2.7 [place] .3.793463 MD [facility]aines8 [facility] 2021-05-14 2021-05-14 Raul Javed 1.2.840.1 [id number] Univers 00:00:00 00:00:00 Only Giovanna Tanner 01090.1.1 i ty of 3.412.2.7 [place] .3.324911 MD [facility]8 [facility] 2021-05-14 2021-05-14 Raul Javed 1.2.840.1 [id number] Univers 00:00:00 00:00:00 Only Giovanna Tanner 74630.1.1 i ty of 3.412.2.7 [place] .3.951498 MD [facility]aines8 [facility] 2021-04-27 2021-04-27 Raul Clark 1.2.840.1 [id number] 8871 Univers 00:00:00 00:00:00 Only Stella 50709.1.1 it y of 3.412.2.7 [place] .3.767280 MD [facility]aines8 [facility] 2021-04-27 2021-04-27 Raul Clark 1.2.840.1 [id number] 4156 Univers 00:00:00 00:00:00 Only Stella 26465.1.1 it y of 3.412.2.7 [place] .3.698879 MD [facility]8 [facility] 2021-04-25 2021-04-25 Raul Clark 1.2.840.1 [id number] 3224 Univers 00:00:00 00:00:00 Only Stella 31216.1.1 it y of 3.412.2.7 [place] .3.667862 MD Haines8 [facility] [place] 2021-04-25 2021-04-25 Orders Amber, 1.2.840.1 [id number] Univers 00:00:00 00:00:00 Only Stella 27645.1.1 it y of 3.412.2.7 [place] .3.265453 MD Haines8 [facility] [place] 2021-04-23 2021-04-23 [facility] TejinderRaymundo 1.2.840.1 [id number] 10 [id number] Univers 09:38:02 23:59:00 Encounter 27380.1.1 it y of 3.412.2.7 [place] .3.002733 MD Haines8 [facility] 2021-04-23 2021-04-23 [facility] Raymundo Marr 1.2.840.1 [id number] 10 [id number] Univers 09:38:02 23:59:00 Encounter 47564.1.1 it y of 3.412.2.7 [place] .3.084768 MD Haines8 [facility] 2021-04-23 2021-04-23 Raul Del Rosario 1.2.840.1 [id number] 0152 Univers 00:00:00 00:00:00 Only Nicole 96256.1.1 ity of [place] 3.412.2.7 [place] .3.975291 MD [facility] [place] 2021-04-23 2021-04-23 Raul Del Rosario 1.2.840.1 [id number] 0345 Univers 00:00:00 00:00:00 Only Nicole 88878.1.1 ity of [place] 3.412.2.7 [place] .3.012593 MD [facility] [place] 2021-04-23 2021-04-23 Raul Del Rosario 1.2.840.1 [id number] 0910 Univers 00:00:00 00:00:00 Only Nicole 72944.1.1 ity of [place] 3.412.2.7 [place] .3.591951 MD [facility] 2021-04-23 2021-04-23 Raul Del Rosario, 1.2.840.1 [id number] 5355 Univers 00:00:00 00:00:00 Only Nicole 85750.1.1 ity of [place] 3.412.2.7 [place] .3.202414 MD Haines8 [facility] 2021-04-23 2021-04-23 Raul Del Rosario, 1.2.840.1 [id number] 3659 Univers 00:00:00 00:00:00 Only Nicole 09463.1.1 ity of [place] 3.412.2.7 [place] .3.130008 MD [facility] 2021-04-23 2021-04-23 Raul Del Rosario, 1.2.840.1 [id number] 5841 Univers 00:00:00 00:00:00 Only Nicole 91233.1.1 ity of [place] 3.412.2.7 [place] .3.951285 MD [facility] 2021-04-23 2021-04-23 Raul Del Rosario, 1.2.840.1 [id number] 7370 Univers 00:00:00 00:00:00 Only Nicole 73517.1.1 ity of [place] 3.412.2.7 [place] .3.058946 MD [facility] 2021-04-23 2021-04-23 Travel 1.2.840.1 1.2.062.021 6084 [id number] Univers 00:00:00 00:00:00 51222.1.1 350.1.13.41 ity of 3.412.2.7 2.[place]7.3.698 [place] .3.703681 084.8 MD [facility] 2021-04-23 2021-04-23 Raul Del Rosario, 1.2.840.1 [id number] 5954 Univers 00:00:00 00:00:00 Only Nicole 51002.1.1 ity of [place] 3.412.2.7 [place] .3.180916 MD [facility] 2021-04-23 2021-04-23 Travel 1.2.840.1 1.2.848.200 1704 409378 Univers 00:00:00 00:00:00 13323.1.1 350.1.13.41 ity of 3.412.2.7 [place]7.3.698 [place] .3.155036 084.8 MD [facility] 2021-04-20 2021-04-20 [facility], 1.2.840.1 [id number] Univers 11:46:55 23:59:00 Encounter Maria Fernanda Fu 66138.1.1 i ty of 3.412.2.7 [place] .3.719733 MD [facility] 2021-04-20 2021-04-20 [facility], 1.2.840.1 [id number] 10 [id number] Univers 09:15:00 11:00:00 Procedure Maria Fernanda VYancy 50626.1.1 i ty of 3.412.2.7 [place] .3.029835 MD [facility] 2021-04-20 2021-04-20 Travel 1.2.840.1 1.2.303.487 6910 640384 Univers 00:00:00 00:00:00 79097.1.1 350.1.13.41 ity of 3.412.2.7 2.2.7.3.698 [place] .3.479878 084.8 MD [facility] 2021-04-16 2021-04-16 [facility] Hinson, 1.2.840.1 [id number] 1 [id number] Univers 09:30:00 23:59:00 Encounter Mary Beth Ann 35307.1.1 i ty of 3.412.2.7 [place] .3.087693 MD [facility] 2021-04-16 2021-04-16 Office NICHOLE Monreal, 1.2.840.1 [id number] 8895 Univers 09:00:00 10:36:47 Visit Herrera 69594.1.1 ity of 3.412.2.7 [place] .3.688202 MD Haines8 [facility] 2021-04-16 2021-04-16 Travel 1.2.840.1 1.2.954.867 6642 [id number] Univers 00:00:00 00:00:00 49826.1.1 350.1.13.41 ity of 3.412.2.7 2.2.7.3.698 [place] .3.722417 084.8 MD [facility] 2021-04-13 2021-04-13 Raul Giraldo, 1.2.840.1 [id number] 0763 Univers 00:00:00 00:00:00 Only Wayne 51051.1.1 ity of 3.412.2.7 [place] .3.020751 MD [facility] 2021-04-07 2021-04-07 Raul Murguia 1.2.840.1 [id number] 9677 Univers 00:00:00 00:00:00 Only Kaylyn, 24701.1.1 ity of [place] 3.412.2.7 [place] .3.898233 MD [facility] 2021-04-07 2021-04-07 Nurse Taylor 1.2.840.1 [id number] Univers 00:00:00 00:00:00 Triage Juan Lehman 21073.1.1 it y of 3.412.2.7 [place] .3.648327 MD [facility] 2021-04-05 2021-04-05 Raul Clark 1.2.840.1 [id number] 0457 Univers 00:00:00 00:00:00 Only Stella 97736.1.1 it y of 3.412.2.7 [place] .3.652583 MD [facility] 2021-04-04 2021-04-04 Angel Gonzalez, 1.2.840.1 [id number] 1724 Univers 00:00:00 00:00:00 Gurpreet Ramírez 28272.1.1 it y of 3.412.2.7 [place] .3.533909 MD [facility]8 [facility] 2021-04-04 2021-04-04 Angel Kimbroughy Gabrielle 1.2.840.1 [id number] 10 [id number] Univers 00:00:00 00:00:00 K 72211.1.1 ity of 3.412.2.7 [place] .3.835174 MD [facility]8 [facility] 2021-04-03 2021-04-03 Gillian Marr 1.2.840.1 [id number] [id number] Univers 14:00:00 14:00:00 Alina 16417.1.1 ity of 3.412.2.7 [place] .3.846915 MD [facility]8 [facility] 2021-03-30 2021-03-30 Raul Clark, 1.2.840.1 [id number] 2397 Univers 00:00:00 00:00:00 Only Stella 24455.1.1 it y of 3.412.2.7 [place] .3.427014 MD Haines8 [facility] 2021-03-29 2021-03-29 Raul Clark 1.2.840.1 [id number] 6781 Univers 00:00:00 00:00:00 Only Stella 85193.1.1 it y of 3.412.2.7 [place] .3.733367 MD [facility] 2021-03-27 2021-03-27 Raul Clark 1.2.840.1 [id number] 7356 Univers 00:00:00 00:00:00 Only Stella 60320.1.1 it y of 3.412.2.7 [place] .3.815080 MD [facility] 2021-03-27 2021-03-27 Angel Santillan, 1.2.840.1 [id number] 1084 [id number] Univers 00:00:00 00:00:00 Wilfredo Stewart 12693.1.1 ity of 3.412.2.7 [place] .3.551065 MD [facility]8 [facility] 2021-03-09 2021-03-09 Raul Perez, 1.2.840.1 [id number] 9149 Univers 00:00:00 00:00:00 Only Tanja Mora 04844.1.1 ity of 3.412.2.7 [place] .3.965234 MD [facility]8 [facility] 2021-03-08 2021-03-08 Orders Amber, 1.2.840.1 [id number] Univers 00:00:00 00:00:00 Only Stella 07239.1.1 it y of 3.412.2.7 [place] .3.119693 MD [facility]8 [facility] 2021-03-07 2021-03-07 Raul Perez, 1.2.840.1 [id number] Univers 00:00:00 00:00:00 Only Tanja Mora 95344.1.1 ity of 3.412.2.7 [place] .3.471897 MD [facility]8 [facility] 2021-03-07 2021-03-07 Documentat Precious, 1.2.840.1 [id number] Univers 00:00:00 00:00:00 lino Diane 61552.1.1 ity of 3.412.2.7 [place] .3.748036 MD [facility]8 [facility] 2021-03-07 2021-03-07 Angel Rivas, 1.2.840.1 [id number] Univers 00:00:00 00:00:00 Yudith Lehman 74166.1.1 ity of 3.412.2.7 [place] .3.079448 MD [facility]8 [facility] 2021-03-07 2021-03-07 Documentat Shivam, 1.2.840.1 [id number] [id number] Univers 00:00:00 00:00:00 ion Sahara 03563.1.1 [place]ree 3.412.2.7 [place] .3.413118 .8 [facility] 2021-02-16 2021-03-02 Inpatient UR SARAH, [facility] [id number] 13:50:00 18:30:00 IRINA Leesers o n 2021-03-02 2021-03-02 Inpatient EL SARAH, MDA MDA [id number] 10:28:13 10:52:29 IRINA Leesers o n 2021-03-01 2021-03-01 Inpatient EL GABRIELLE GONZALEZ MDA MDA [id number] 13:48:32 14:24:14 Bakari o n 2021-02-28 2021-02-28 Inpatient EL GABRIELLE GONZALEZ MDA MDA [id number] 15:34:04 16:08:02 Bakari o erasmo 2021-02-27 2021-02-27 Inpatient EL CORDELLELLA, MDA MDA [id number] 11:31:18 11:31:23 MARIA FERNANDA Villegas o erasmo 2021-02-23 2021-02-23 Inpatient EL LORRAINEDODARIELA, MDA MDA [id number] 08:50:18 09:09:38 MARCIN Villegas o erasmo 2021-02-20 2021-02-20 Inpatient EL HALM, MDA MDA [id number] 21:52:07 22:45:31 MAYANK Leesers o erasmo 2021-02-19 2021-02-19 Inpatient EL HALM, MDA MDA [id number] 16:34:08 16:35:56 MAYANK Leesers o erasmo 2021-02-19 2021-02-19 Inpatient EL HALM, MDA MDA [id number] MD 14:32:55 14:50:27 MAYANK Leesers o erasmo 2021-02-19 2021-02-19 Inpatient EL FOSSELLA, MDA MDA [id number] 11:06:11 11:06:14 MARIA FERNANDA Villegas o erasmo 2021-02-18 2021-02-18 Inpatient EL HALM, MDA MDA [id number] MD 15:44:22 16:22:28 MAYANK Leesers o erasmo 2021-02-17 2021-02-17 Inpatient EL TOD GLASS MDA MDA [id number] 03:53:53 04:06:50 Bakari zimmerman 2021-01-21 2021-01-30 Inpatient ER ODARO, MDA [facility]osp [facility] [id number] 21:38:00 18:36:00 BENEDICTO zimmerman 2021-01-30 2021-01-30 Inpatient EL FOSSELLA, MDA MDA [id number] 15:18:04 15:18:06 MARIA FERNANDA zimmerman 2021-01-28 2021-01-28 Inpatient EL AL AMERI, MDA MDA [id number] 13:47:27 13:49:05 RASHAAD zimmerman 2021-01-25 2021-01-25 Inpatient EL AL AMERI, MDA MDA [id number] 20:37:26 20:37:30 RASHAAD zimmerman 2021-01-24 2021-01-24 Inpatient EL AL AMERI, MDA MDA [id number] 08:18:01 08:38:37 RASHAAD zimmerman 2021-01-22 2021-01-22 Inpatient EL AL AMERI, MDA MDA [id number] 19:02:05 19:25:15 RASHAAD zimmerman 2021-01-04 2021-01-19 Inpatient ER SIMBAQUEBA MDA Hosp Med [id number] 11:01:00 16:25:00 Levi RAJPUT 2021-01-18 2021-01-18 Inpatient EL FOSSELLA, MDA MDA [id number] 11:15:46 11:15:49 MARIA FERNANDA zimmerman 2021-01-15 2021-01-15 Inpatient EL FOSSELLA, MDA MDA [id number] 10:54:17 10:54:19 MARIA FERNANDA zimmerman 2021-01-14 2021-01-14 Inpatient EL RAMSEY, MDA MDA [id number] 12:12:50 13:22:39 JUAREZ zimmerman 2021-01-12 2021-01-12 Inpatient EL FOSSELLA, MDA MDA [id number] 11:16:26 11:16:28 MARIA FERNANDA zimmerman 2021-01-10 2021-01-10 Inpatient EL FOSSELLA, MDA MDA [id number] 12:34:26 12:34:30 MARIA FERNANDA zimmerman 2021-01-09 2021-01-09 Inpatient EL EMERA, MDA MDA [id number] 21:30:37 21:42:18 GURPREET zimmerman 2021-01-08 2021-01-08 Inpatient EL MEERA, MDA MDA [id number] 11:15:00 12:40:27 GURPREET zimmerman 2021-01-07 2021-01-07 Inpatient EL ALEXUS, MDA MDA [id number] 09:48:34 10:43:19 BONI zimmerman 2021-01-05 2021-01-05 Inpatient EL CORDELLELLA, MDA MDA [id number] 10:28:44 10:28:46 MARIA FERNANDA zimmerman 2020-12-26 2020-12-26 Outpatient EL FOSSELLA, MDA MDA [id number] 13:17:22 13:49:03 MARIA FERNANDA zimmerman 2020-12-22 2020-12-22 Outpatient EL FOSSELLA, MDA MDA [id number] 15:44:28 15:44:28 MARIA FERNANDA zimmerman 2020-12-20 2020-12-20 Outpatient EL FOSSELLA, MDA MDA [id number] 14:45:38 15:10:28 MARIA FERNANDA zimmerman 2020-12-19 2020-12-19 Outpatient EL FOSSELLA, MDA MDA [id number] 15:02:13 15:33:05 MARIA FERNANDA zimmerman 2020-12-18 2020-12-18 Outpatient EL FOSSELLA, MDA MDA [id number] 14:30:00 23:59:00 MARIA FERNANDA zimmerman 2020-12-18 2020-12-18 Outpatient EL RAYMUNDO MARR MDA MDA [id number] 15:34:19 15:34:19 Bakari zimmerman 2020-12-18 2020-12-18 Outpatient EL FOSSELLA, MDA MDA [id number] 14:39:45 15:30:31 MARIA FERNANDA zimmerman 2020-12-15 2020-12-15 Outpatient EL FOSSELLA, MDA MDA [id number] 14:01:01 14:06:41 MARIA FERNANDA zimmerman 2020-11-20 2020-11-24 Inpatient X RUSSELL GIRALDO [facility] PUJA [id number] Univers 00:18:00 16:31:00 [facility] 2020-10-26 2020-10-26 Outpatient R [facility] [id number] Univers 09:00:00 09:00:00 [facility] 2020-10-17 2020-10-17 Outpatient R DIOGO, [facility] [id number] Univers 09:30:00 09:30:00 JACKSON [facility] 2020-07-27 2020-07-27 Outpatient R BRANDY, [facility] [id number] Univers 14:30:00 14:30:00 [facility] [place] 2020-07-05 2020-07-05 Outpatient EL TADEO, MDA MDA [id number] 10:29:44 10:55:21 HERRERA zimmerman 2020-04-28 2020-04-29 Inpatient [facility] DANDRE [id number] [facility] 02:28:00 09:27:09 18 [facility] 2020-04-27 2020-04-27 Outpatient EL FOSSELLA, MDA MDA [id number] 06:26:24 06:26:24 MARIA FERNANDA zimmerman 2020-04-25 2020-04-25 Outpatient EL FOSSELLA, MDA MDA [id number] 15:16:25 23:59:00 MARIA FERNANDA zimmerman 2020-04-25 2020-04-25 Outpatient EL FOSSELLA, MDA MDA [id number] 16:52:13 16:52:13 MARIA FERNANDA zimmerman 2020-04-21 2020-04-21 Outpatient EL FOSSELLA, MDA MDA [id number] 12:34:59 15:51:01 MARIA FERNANDA zimmerman 2020-04-17 2020-04-17 Outpatient EL MICHAELROCKY MDA MDA [id number] 11:29:21 23:59:00 Bakari zimmerman 2020-04-17 2020-04-17 Outpatient EL MDA MDA [id number] 09:00:09 11:28:00 Bakari zimmerman 2020-04-17 2020-04-17 Outpatient EL CRANE, MDA MDA [id number] 09:38:52 11:12:52 CODY zimmerman 2020-04-14 2020-04-14 Outpatient EL MDA MDA [id number] MD 11:14:57 23:59:00 Bakari o erasmo 2020-04-14 2020-04-14 Outpatient EL AURELIANO EDWARD MDA MDA [id number] MD 12:35:21 13:51:10 Bakari o erasmo 2020-04-14 2020-04-14 Outpatient EL MDA MDA [id number] MD 08:26:38 11:13:00 Bakari o erasmo 2020-04-13 2020-04-13 Outpatient EL MDA MDA [id number] MD 15:45:00 23:59:00 Bakari o erasmo 2020-04-13 2020-04-13 Outpatient EL MDA MDA [id number] MD 13:53:11 15:44:00 Bakari o erasmo 2020-04-13 2020-04-13 Outpatient EL MDA MDA [id number] MD 13:27:19 13:52:00 Bakari o erasmo 2020-04-13 2020-04-13 Outpatient EL MDA MDA [id number] MD 10:45:00 13:26:00 Bakari o erasmo 2020-04-13 2020-04-13 Outpatient EL ROSA MARIA, MDA MDA [id number] MD 07:39:14 10:44:00 CODY zimmerman 2020-04-12 2020-04-12 Outpatient EL SHANELL, MDA MDA [id number] MD 12:45:00 23:59:00 ORACIO zimmerman 2020-04-11 2020-04-11 Outpatient EL BRENDON, MDA MDA [id number] MD 11:45:00 23:59:00 WILFREDO zimmerman 2020-04-11 2020-04-11 Outpatient EL BRENDON, MDA MDA [id number] MD 11:23:21 11:23:21 WILFREDO zimmerman 2020-03-31 2020-03-31 Outpatient EL CONATJose, MDA MDA [id number] MD 08:00:00 23:59:00 MAURICIO zimmerman 2020-03-31 2020-03-31 Outpatient EL ROSA MARIA, MDA MDA [id number] MD 08:51:09 09:59:36 CODY zimmerman 2020-03-20 2020-03-20 Outpatient EL ILIESCU, MDA MDA [id number] MD 10:02:47 10:02:47 ORACIO Bakari o n 2020-03-20 2020-03-20 Outpatient NICHOLE TAPIA, MDA MDA [id number] 09:57:25 09:57:25 LATIRA Bakari o n 2020-03-10 2020-03-10 Outpatient NICHOLE TAPIA MDA MDA [id number] 08:10:34 08:10:34 LATIRA Bakari o n 2020-03-02 2020-03-02 Outpatient NICHOLE TAPIA MDA MDA [id number] 12:40:44 23:59:00 LATIRA Bakari o n 2020-03-02 2020-03-02 Outpatient EL SHANELL, MDA MDA [id number] MD 10:20:00 14:05:06 ORACIO Bakari o n 2020-03-02 2020-03-02 Outpatient NICHOLE TAPIA, MDA MDA [id number] 12:15:00 12:39:00 LATIRA Bakari o n 2020-03-02 2020-03-02 Outpatient NICHOLE REECE, MDA MDA [id number] 10:29:25 10:29:25 ORACIO Bakari o n 2020-03-02 2020-03-02 Outpatient EL MDA MDA [id number] MD 10:00:01 10:00:10 Bakari o n 2020-02-29 2020-02-29 Outpatient EL MDA MDA [id number] MD 13:58:52 14:24:33 Bakari o n 2019-08-26 2019-08-26 Outpatient PASCALE Jaimes [facility] [id number] 12:48:00 12:48:00 [facility] 2019-08-12 2019-08-15 Inpatient [facility] [id number] [facility] 20:09:00 22:33:31 69 [facility] Results Test Description Test Time Test Comments [...] and electronically signed by Pathologist:SRUTHI ZABALA MD #[id number] [facility] MD [facility] [place] Uliiaad7973-62-13 23:29:29 Test Item Value Reference Range Interpretation Comments Final Report (test No Fungi isolated. code = 8488) Path Review - Culture yield may be Fungus (test code = affected by sample 8479) quality, prior treatment, and transportation conditions.The results have been reviewed and electronically signed by Pathologist:SRUTHI ZABALA MD #[id number] [facility] Oyschlc7884-45-02 23:29:29 Test Item Value Reference Range Interpretation Comments Final Report (test No Fungi isolated. code = 8488) Path Review - Culture yield may be Fungus (test code = affected by sample 8479) quality, prior treatment, and transportation conditions.The results have been reviewed and electronically signed by Pathologist:SRUTHI ZABALA MD #[id number] [facility] Tlgdarj2593-08-92 01:20:36 Test Item Value Reference Range Interpretation Comments Final Report (test No growth code = 8488) Path Review - Culture yield may be Bottle/Isolator affected by sample (test code = 8499) quality, prior treatment, and transportation conditions....The results have been reviewed and electronically signed by Pathologist:Fredy Mercado MD, PhD #[id number] [facility] Otpwyqr2352-97-11 01:20:36 Test Item Value Reference Range Interpretation Comments Final Report (test No growth code = 8488) Path Review - Culture yield may be Bottle/Isolator affected by sample (test code = 8499) quality, prior treatment, and transportation conditions....The results have been reviewed and electronically signed by Pathologist:Fredy Mercado MD, PhD #[id number] [facility] Pctmwqc4631-85-70 01:20:36 Test Item Value Reference Range Interpretation Comments Final Report (test No growth code = 8488) Path Review - Culture yield may be Bottle/Isolator affected by sample (test code = 8499) quality, prior treatment, and transportation conditions....The results have been reviewed and electronically signed by Pathologist:Fredy Mercado MD, PhD #[id number] [facility] 17:07:36 Test Item Value Reference Range Interpretation Comments Total Cells (test code 100 = 46419-1) Neutrophil % (test code 63.0 % 42.0-66.0 The Neutrophil count = 43597-4) includes Bands. Lymphocyte % (test code 20.0 % 24.0-44.0 L = 737-7) Monocyte % (test code = 9.0 % 2.0-7.0 H 744-3) Eosinophil % (test code 2.0 % 1.0-4.0 = 714-6) Metamyelocyte % (test 6.0 % See_Comment H The Me tamyelocyte code = 740-1) count includes Myelocytes. [Automated mess age] The system CC video generated this result transmitted ref erence range: <=0.0. T he reference range was not used to int erpret this result as normal/abnormal . NRBC (test code = 1.0 See_Comment H [Automate d message] 84180-2) The system CC video generated this result transmitted ref erence range: [...] PLT Morph (test code = Normal Normal 24071-8) Anisocytosis (test code Present Not Present A = 702-1) Poik (test code = Present Not Present A 779-9) Polychromasia (test Present Not Present A code = 18281-8) Ovalocyte (test code = Present Not Present A 774-0) Tear Drop (test code = Present Not Present A 7791-7) Lab Interpretation Abnormal (test code = 84760-5) [facility] NsxmrcTyidbprjxhzd8773-73-52 17:07:36 Test Item Value Reference Range Interpretation Comments Total Cells (test code 100 = 00366-4) Neutrophil % (test code 63.0 % 42.0-66.0 The Neutrophil count = 79044-4) includes Bands. Lymphocyte % (test code 20.0 % 24.0-44.0 L = 737-7) Monocyte % (test code = 9.0 % 2.0-7.0 H 744-3) Eosinophil % (test code 2.0 % 1.0-4.0 = 714-6) Metamyelocyte % (test 6.0 % See_Comment H The Me tamyelocyte code = 740-1) count includes Myelocytes. [Automated mess age] The system CC video generated this result transmitted ref erence range: <=0.0. T he reference range was not used to int erpret this result as normal/abnormal . NRBC (test code = 1.0 See_Comment H [Automate d message] 79856-8) The system CC video generated this result transmitted ref erence range: [...] PLT Morph (test code = Normal Normal 22659-7) Anisocytosis (test code Present Not Present A = 702-1) Poik (test code = Present Not Present A 779-9) Polychromasia (test Present Not Present A code = 34915-8) Ovalocyte (test code = Present Not Present A 774-0) Tear Drop (test code = Present Not Present A 7791-7) Lab Interpretation Abnormal (test code = 50598-4) [facility] UucjnaLmcnxyyzrraf9950-69-48 17:07:36 Test Item Value Reference Range Interpretation Comments Total Cells (test code 100 = 85220-9) Neutrophil % (test code 63.0 % 42.0-66.0 The Neutrophil count = 19238-7) includes Bands. Lymphocyte % (test code 20.0 % 24.0-44.0 L = 737-7) Monocyte % (test code = 9.0 % 2.0-7.0 H 744-3) Eosinophil % (test code 2.0 % 1.0-4.0 = 714-6) Metamyelocyte % (test 6.0 % See_Comment H The Oh tamyelocyte code = 740-1) count includes Myelocytes. [Automated mess age] The system CC video generated this result transmitted ref erence range: <=0.0. T he reference range was not used to int erpret this result as normal/abnormal . NRBC (test code = 1.0 See_Comment H [Automate d message] 15839-8) The system CC video generated this result transmitted ref erence range: [...] PLT Morph (test code = Normal Normal 24998-7) Anisocytosis (test code Present Not Present A = 702-1) Poik (test code = Present Not Present A 779-9) Polychromasia (test Present Not Present A code = 43375-8) Ovalocyte (test code = Present Not Present A 774-0) Tear Drop (test code = Present Not Present A 7791-7) Lab Interpretation Abnormal (test code = 97345-4) [facility] [place].HNP4340-35-09 17:07:32 Test Item Value Reference Range Interpretation Comments WBC (test code = 11.5 K/uL 4.0-11.0 H 6690-2) RBC (test code = 789-8) 4.25 See_Comment L [Au tomated message] The system CC video generated this result transmitted ref erence range: 4.50 - 6 .00 M/uL. The refer ence range was not u sed to interpret this result as normal/abnor mal. Hgb (test code = 718-7) 12.1 See_Comment L [Au tomated message] The system CC video generated this result transmitted ref erence range: [...] See_Comment [Automate d message] 786-4) The system CC video generated this result transmitted ref erence range: 31.0 - 3 6.0 gm/dL. The refe rence range was not u sed to interpret this result as normal/abnor mal. RDW-SD (test code = 57.5 fL 35.1-46.3 H 55145-6) RDW-CV (test code = 17.4 % 12.0-15.5 H 788-0) Platelet count (test 313 K/uL 140-440 code = 777-3) MPV (test code = 8.8 fL 4.0-10.4 69951-8) INRBC (test code = 0.2 % See_Comment H The INRBC (instrument 23696-7) NRBC) value ref lects the enumeration of nucleated red b lood cells contained in a 200uL sampleof whole blood analyzed by the instrument. Thi s value maydiffer from the NRBC value reported in a m anual differential,wh ich is based on a 100 cell differential. [Automated mess age] The system CC video generated this result transmitted ref erence range: <=0.0. T he reference range was not used to int erpret this result as normal/abnormal . Lab Interpretation Abnormal (test code = 51173-3) [facility] [place].BBQ9005-55-07 17:07:32 Test Item Value Reference Range Interpretation Comments WBC (test code = 11.5 K/uL 4.0-11.0 H 6690-2) RBC (test code = 789-8) 4.25 See_Comment L [Au tomated message] The system CC video generated this result transmitted ref erence range: 4.50 - 6 .00 M/uL. The refer ence range was not u sed to interpret this result as normal/abnor mal. Hgb (test code = 718-7) 12.1 See_Comment L [Au tomated message] The system CC video generated this result transmitted ref erence range: [...] See_Comment [Automate d message] 786-4) The system CC video generated this result transmitted ref erence range: 31.0 - 3 6.0 gm/dL. The refe rence range was not u sed to interpret this result as normal/abnor mal. RDW-SD (test code = 57.5 fL 35.1-46.3 H 62256-8) RDW-CV (test code = 17.4 % 12.0-15.5 H 788-0) Platelet count (test 313 K/uL 140-440 code = 777-3) MPV (test code = 8.8 fL 4.0-10.4 24037-1) INRBC (test code = 0.2 % See_Comment H The INRBC (instrument 39170-2) NRBC) value ref lects the enumeration of nucleated red b lood cells contained in a 200uL sampleof whole blood analyzed by the instrument. Thi s value maydiffer from the NRBC value reported in a m anual differential,wh ich is based on a 100 cell differential. [Automated mess age] The system CC video generated this result transmitted ref erence range: <=0.0. T he reference range was not used to int erpret this result as normal/abnormal . Lab Interpretation Abnormal (test code = 87762-8) [facility] [place].GBH2924-23-69 17:07:32 Test Item Value Reference Range Interpretation Comments WBC (test code = 11.5 K/uL 4.0-11.0 H 6690-2) RBC (test code = 789-8) 4.25 See_Comment L [Au tomated message] The system CC video generated this result transmitted ref erence range: 4.50 - 6 .00 M/uL. The refer ence range was not u sed to interpret this result as normal/abnor mal. Hgb (test code = 718-7) 12.1 See_Comment L [Au tomated message] The system CC video generated this result transmitted ref erence range: [...] See_Comment [Automate d message] 786-4) The system CC video generated this result transmitted ref erence range: 31.0 - 3 6.0 gm/dL. The refe rence range was not u sed to interpret this result as normal/abnor mal. RDW-SD (test code = 57.5 fL 35.1-46.3 H 60900-3) RDW-CV (test code = 17.4 % 12.0-15.5 H 788-0) Platelet count (test 313 K/uL 140-440 code = 777-3) MPV (test code = 8.8 fL 4.0-10.4 90775-1) INRBC (test code = 0.2 % See_Comment H The INRBC (instrument 03927-5) NRBC) value ref lects the enumeration of nucleated red b lood cells contained in a 200uL sampleof whole blood analyzed by the instrument. Thi s value maydiffer from the NRBC value reported in a m anual differential,wh ich is based on a 100 cell differential. [Automated mess age] The system whic h generated this result transmitted ref erence range: <=0.0. T he reference range was not used to int erpret this result as normal/abnormal . Lab Interpretation Abnormal (test code = 73580-2) [facility] Jdiiz4792-83-03 11:49:22 Test Item Value Reference Range Interpretation [...] to interpret this result as normal/abnormal . [facility] Yhuft5183-35-69 11:49:22 Test Item Value Reference Range Interpretation [...] to interpret this result as normal/abnormal . [facility] Euess8082-09-99 11:49:22 Test Item Value Reference Range Interpretation [...] = 12 See_Comment [Aut omated message] The 48010-8) system which ge nerated this result tra nsmitted reference range : 4 - 14 mEq/L. The refe rence range was not u sed to interpret this result as normal/abnormal . [facility] Zxcrauwjf7157-62-31 11:49:21 Test Item Value Reference Range Interpretation [...] interpret th is result as normal/abnormal . [facility] Rigaovfyg7786-62-35 11:49:21 Test Item Value Reference Range Interpretation [...] interpret th is result as normal/abnormal . [facility] Nwkwugtpf3593-15-08 11:49:21 Test Item Value Reference Range Interpretation [...] interpret th is result as normal/abnormal . [facility] Rate 2021-10-24 11:49:20 Test Item Value Reference Range Interpretation Comments eGFR-AA (test code 107 See_Comment Normal eG FR: >= 60 = 68910-2) mL/min/1.73 m2N ote: The eGFR is calculated [...] See_Comment Normal e GFR: >= 60 = 19612-5) mL/min/1.73 m2N ote: The eGFR is calculated [...] interpret th is result as normal/abnormal . [facility] 2021-10-24 11:49:20 Test Item Value Reference Range Interpretation Comments eGFR-AA (test code 107 See_Comment Normal eG FR: >= 60 = 44096-2) mL/min/1.73 m2N ote: The eGFR is calculated [...] decreased GFR 3 0-444 Severely decreased GFR 15-295 Kidney failure <15 [Au tomated message] The sy stem which generated this result transmitted ref erence range: >=60 mL/min/1.7 3 sq. m. The reference range was not used to interpret th is result as normal/abnormal . eGFR-JCARLOS (test code 93 See_Comment Normal e GFR: >= 60 = 66719-5) mL/min/1.73 m2N ote: The eGFR is calculated [...] interpret th is result as normal/abnormal . [facility] 2021-10-24 11:49:20 Test Item Value Reference Range Interpretation Comments eGFR-AA (test code 107 See_Comment Normal eG FR: >= 60 = 19706-5) mL/min/1.73 m2N ote: The eGFR is calculated [...] See_Comment Normal e GFR: >= 60 = 90119-9) mL/min/1.73 m2N ote: The eGFR is calculated [...] decreased GFR 1 5-295 Kidney failure <15 [A utomated message] The sy stem which generated this result transmitted ref erence range: >=60 mL/min/1.7 3 sq. m. The reference range was not used to interpret is result as normal/abnormal . [facility] Ekwdnfx7272-50-65 11:49:19 Test Item Value Reference Range Interpretation Comments Total Protein (test code = 2885-2) 6.3 g/dL 6.4-8.3 L Lab Interpretation (test code = Abnormal 67298-4) [facility] Kpwijxd6710-70-82 11:49:19 Test Item Value Reference Range Interpretation Comments Total Protein (test code = 2885-2) 6.3 g/dL 6.4-8.3 L Lab Interpretation (test code = Abnormal 45999-9) [facility] Yaedbnn3038-60-72 11:49:19 Test Item Value Reference Range Interpretation Comments Total Protein (test code = 2885-2) 6.3 g/dL 6.4-8.3 L Lab Interpretation (test code = Abnormal 24921-3) [facility] Vzagu6932-84-30 11:49:18 Test Item Value Reference Range Interpretation Comments Magnesium (test code = 00344-5) 2.1 mg/dL 1.6-2.6 [facility] Myelb3129-66-83 11:49:18 Test Item Value Reference Range Interpretation Comments Magnesium (test code = 94782-4) 2.1 mg/dL 1.6-2.6 [facility] Xoygo1056-85-00 11:49:18 Test Item Value Reference Range Interpretation Comments Magnesium (test code = 81875-5) 2.1 mg/dL 1.6-2.6 [facility] Ccsskdhgvtj6230-15-73 11:49:17 Test Item Value Reference Range Interpretation Comments Alk Phos (test code = 6768-6) 59 U/L 40-129 [facility] Cfihynhgjif2083-08-72 11:49:17 Test Item Value Reference Range Interpretation Comments Alk Phos (test code = 6768-6) 59 U/L 40-129 [facility] Ityyrpultjp6677-12-23 11:49:17 Test Item Value Reference Range Interpretation Comments Alk Phos (test code = 6768-6) 59 U/L 40-129 [facility] 11:49:16 Test Item Value Reference Range Interpretation Comments ALT (test code = 14 U/L See_Comment [Automated message] The 1741-11) system which ge nerated this result transmit lakhwinder reference range : <=41. The reference range was not used to interpr et this result as paras l/abnormal. [facility]16 Test Item Value Reference Range Interpretation Comments ALT (test code = 14 U/L See_Comment [Automated message] The 1741-11) system which ge nerated this result transmit lakhwinder reference range : <=41. The reference range was not used to interpr et this result as paras l/abnormal. [facility] 11:49:16 Test Item Value Reference Range Interpretation Comments ALT (test code = 14 U/L See_Comment [Automated message] The 1741-11) system which ge nerated this result transmit lakhwinder reference range : <=41. The reference range was not used to interpr et this result as paras l/abnormal. [facility] Xsskqpvujk7153-52-52 11:49:15 Test Item Value Reference Range Interpretation Comments Creatinine (test code = 2160-0) 0.81 mg/dL 0.67-1.17 [facility] Kuqewuampj8296-54-65 11:49:15 Test Item Value Reference Range Interpretation Comments Creatinine (test code = 2160-0) 0.81 mg/dL 0.67-1.17 [facility] Drhnjdimxp2476-80-31 11:49:15 Test Item Value Reference Range Interpretation Comments Creatinine (test code = 2160-0) 0.81 mg/dL 0.67-1.17 [facility] 11:49:14 Test Item Value Reference Range Interpretation Comments BUN (test code = 3094-0) 15 mg/dL 12-20 [facility] 11:49:14 Test Item Value Reference Range Interpretation Comments BUN (test code = 3094-0) 15 mg/dL 12-20 [facility] 11:49:14 Test Item Value Reference Range Interpretation Comments BUN (test code = 3094-0) 15 mg/dL 12-20 [facility] Vwjzf3011-78-75 11:49:13 Test Item Value Reference Range Interpretation Comments Phosphorus (test code = 2777-1) 3.4 mg/dL 2.5-4.5 [facility] Itmlw8852-16-92 11:49:13 Test Item Value Reference Range Interpretation Comments Phosphorus (test code = 2777-1) 3.4 mg/dL 2.5-4.5 [facility] Soesk4882-96-34 11:49:13 Test Item Value Reference Range Interpretation Comments Phosphorus (test code = 2777-1) 3.4 mg/dL 2.5-4.5 [facility] Mjcip3712-14-85 11:49:12 Test Item Value Reference Range Interpretation Comments Calcium Lvl (test code = 89743-1) 9.1 mg/dL 8.4-10.2 [facility] Bnqar2063-39-60 11:49:12 Test Item Value Reference Range Interpretation Comments Calcium Lvl (test code = 54364-5) 9.1 mg/dL 8.4-10.2 [facility] Wivbo5412-61-55 11:49:12 Test Item Value Reference Range Interpretation Comments Calcium Lvl (test code = 86941-9) 9.1 mg/dL 8.4-10.2 [facility] Ybyvr6156-19-03 11:49:11 Test Item Value Reference Range Interpretation Comments Albumin Lvl (test code 3.6 See_Comment [Aut omated message] The = 1625) system which ge nerated this result tra nsmitted reference range : 3.5 - 5.2 gm/dL. The refe rence range was not used to interpret this result as normal/abnormal . [facility] Rcoji5013-17-65 11:49:11 Test Item Value Reference Range Interpretation Comments Albumin Lvl (test code 3.6 See_Comment [Aut omated message] The = 6650) system which ge nerated this result tra nsmitted reference range : 3.5 - 5.2 gm/dL. The refe rence range was not used to interpret this result as normal/abnormal . [facility] Dkneo0069-83-07 11:49:11 Test Item Value Reference Range Interpretation Comments Albumin Lvl (test code 3.6 See_Comment [Aut omated message] The = 6021) system which ge nerated this result tra nsmitted reference range : 3.5 - 5.2 gm/dL. The refe rence range was not used to interpret this result as normal/abnormal . [facility] Aminotransferase 2021-10-24 11:49:10 Test Item Value Reference Range Interpretation Comments AST (test code = 14 U/L See_Comment [Automated message] The 1920-01) system which ge nerated this result transmit lakhwinder reference range : <=40. The reference range was not used to interpr et this result as paras l/abnormal. [facility] Aminotransferase 2021-10-24 11:49:10 Test Item Value Reference Range Interpretation Comments AST (test code = 14 U/L See_Comment [Automated message] The 1920-01) system which ge nerated this result transmit lakhwinder reference range : <=40. The reference range was not used to interpr et this result as paras l/abnormal. [facility] Aminotransferase 2021-10-24 11:49:10 Test Item Value Reference Range Interpretation Comments AST (test code = 14 U/L See_Comment [Automated message] The 1920-01) system which ge nerated this result transmit lakhwinder reference range : <=40. The reference range was not used to interpr et this result as paras l/abnormal. [facility] Zptkz2499-53-63 11:49:08 Test Item Value Reference Range Interpretation [...] diabetes Lab Interpretation (test Abnormal code = 19003-6) [facility] Fiomz3791-37-27 11:49:08 Test Item Value Reference Range Interpretation [...] diabetes Lab Interpretation (test Abnormal code = 39097-3) [facility] Ekbul0470-36-60 11:49:08 Test Item Value Reference Range Interpretation [...] diabetes Lab Interpretation (test Abnormal code = 52527-8) [facility] Luqnzmvvhn0562-40-14 06:55:27 Test Item Value Reference Range Interpretation Comments IgG Total-Hart (test 830 mg/dL 767-1590 code = 2465-3) IgG1-Hart (test code = 418 mg/dL 949-721 5301-1) IgG2-Hart (test code = 157 mg/dL 171-632 L 2467-9) IgG3-Hart (test code = 56.8 mg/dL 18.4-106.0 8-7) IgG4-Hart (test code = 8.8 mg/dL 2.4-121.0 Test Performed 2468-10) by:[facility] [employer] [address], [place], [place] [address]Dtm Director: Petar Johnson M.D. Ph. D.; CLIA# [id number] 2 Lab Interpretation Abnormal (test code = 12303-1) [facility]oy[facility]24-38-24 06:55:27 Test Item Value Reference Range Interpretation Comments IgG Total-Hart (test 830 mg/dL 767-1590 code = 2465-3) IgG1-Hart (test code = 418 mg/dL 260-853 8659-1) IgG2-Hart (test code = 157 mg/dL 171-632 L 2467-9) IgG3-Hart (test code = 56.8 mg/dL 18.4-106.0 2468-7) IgG4-Hart (test code = 8.8 mg/dL 2.4-121.0 Test Performed 2469-5) by:[facility] [address], [employer] [place], [place] [address]Ksv Director: Petar Johnson M.D. Ph. D.; CLIA# [id number] 2 Lab Interpretation Abnormal (test code = 12319-9) [facility] Mbeozeazgh0213-89-94 06:55:27 Test Item Value Reference Range Interpretation Comments IgG Total-[place] (test 830 mg/dL 767-1590 code = 2465-3) IgG1-[place] (test code = 418 mg/dL 344-995 4847-1) IgG2-[place] (test code = 157 mg/dL 171-632 L 2467-9) IgG3-[place] (test code = 56.8 mg/dL 18.4-106.0 8-7) IgG4-[place] (test code = 8.8 mg/dL 2.4-121.0 Test Performed 5) by:[facility] [employer], [employer] [place], [place] [address]Mpy Director: Petar Johnson M.D. Ph. D.; CLIA# [id number] 2 Lab Interpretation Abnormal (test code = 73450-0) [facility] 19:29:59 Test Item Value Reference Range Interpretation Comments IgG (test code = 6001) 751 mg/dL 610-1616 [facility] 19:29:59 Test Item Value Reference Range Interpretation Comments IgG (test code = 6001) 751 mg/dL 610-1616 [facility] 19:29:59 Test Item Value Reference Range Interpretation Comments IgG (test code = 6001) 751 mg/dL 610-1616 [facility] 19:29:58 Test Item Value Reference Range Interpretation Comments IgA (test code = 5992) 191 mg/dL 85-499 [facility] 19:29:58 Test Item Value Reference Range Interpretation Comments IgA (test code = 5992) 191 mg/dL 85-499 [facility] Test Item Value Reference Range Interpretation Comments IgA (test code = 5992) 191 mg/dL 85-499 [facility] 2021-10-22 15:30:07 Test Item Value Reference Range Interpretation Comments Submitted Clinical History s5vnfNDqIJTrh4zcNGO (test code = 98120) mbGFuZzEwMzNcZnRuYm pcdWMxIHtccnRmMVxzc 9EfI1XiLuToXIwhtpJp XGRlZmxhbmcxMDMzXGZ 0bmJqXHVjMVxkZWZmMH ahYm2svSTggPweOfRsT JQgv4cubzJDotkhkEg7 a8srGRQcWvL5kACaEZo dK2qnpuRnvBPaNDMePT v6eN43WUTqtY1shWWoC QggsqSvEdU8HHwcEMIs TaU8IFXchZCcKCJiW4h yZWQwXGdyZWVuMFxibH JpFDR9bLenk6L9zFAcf GVldHtcZjBcZnMyMiBO b9LeEOn9bTpdS2CoYNA gTqM8lFLpERNwSGdeRT VtMXVgsyK6qW81FOyrz qJ6eRQoj1Vbb15xn174 zA2qcIJqBOH9ATQjSNT mzSMgQLWbCRN4WOTfmY NiQ6xvGPZpBZ7lmzuvO XqhBNyxYMNbsEE7NWFc uRYfI7CfEPEdIQtrIXA wqqk5PgQhSg8plINurI qoHTgqk0tvr4doqSOyT ss4FHZrUuGmChhxYNso w3Qpc8haRLIdnz8hHCO 0sWPxbJtbr2L7lQYsYQ QvaLJyelZePBDrEwF8C JewIM9bnt93MBQcSRA2 jj3qwMZbvGhcisFlrZT bPMhtM8IpXPXwn165QH HkS8YqOSMne5T9zqYgX zFyITQipTB3wuU8GDMt VMd4eJEzmuK9cgTkiTL wA6pofV6lQPNiBH4ais dmy2hcHUjmPXjoVVJxx EK4rcW5GJZnfDOvP8Wn aC8fJKKmEXpwZOHfkfz 7ZcYoUw9eyMBmxYycFI xzYmtwYWdlXHBnbmNvb nRccGduZGVjXHBsYWlu XHBsYWluXGYwXGZzMjR iaNokhOxjdJ5rIiQhHa LsGLpwMR8jZIEtD2fkz NSvRYFmAOUnG6jgMdQh sF5bcSmmZCybioFvODQ 1ZOqgz1lpitxofMKkrq Y0zOReRrUdCfF1VVapx GFpblxmMVxmczIyXGxh nsarZGKmHQgjS1vbFuN zPNOnwLavBXjrc1FaQB YxXGZzMjJccGFyfX0= Diagnosis (test code = 34) v7dexEZtDOPgxBU0DiM zANYpn3tdj5HpbMIxkU UpGDxpbBZdmvWakc31x YP4fR00VJ1gYIKxWnK8 POZdslY9Eqw7ESCfHEA jbVOvX899t6yyi0uzhh HywDD9eOqgXVDqzfcbP aU5UFjtMKHeoyphNSi7 TSxhOQLfuDR3OJYanZB zR5PzMLVrAF7hbam4JL C7KKnqVCFnJhQ7HGUaj QEfPYKmhYlsRHlci745 OYE6OtFmJFGixoHjnCo kgZ8hBhTaZNGRUrQeTO JhvCerB1FwKCRjeA8sl 2n3MFgiztUqXOa0EYQy L7bhrwhoeaJbm3XfmI4 uv1cpN9KncJmnU57ve5 rbpYNabSZ7uMXiFQSav mSaFTEeSVJxeXpuQ0o7 aXNccGFyfQ== Gross Description (test m7oidZApTNEbxIKLODp code = 6223646018) wMVxhbnNpXHNwbHRwZ3 GeabpiDTioNO0gGB2ie PbumXHmgPMtZI6MPRPq ZmYxXHBhcGVydzEyMjQ aCZJbdNJzmNO7YDKkPS 1hcmdsMTgwMFxtYXJnc tT7VQCfoQGwQ8VhVRBk RJ4mdawuLWC3MTedxK3 qjzCPWjpzAb8abFBihY tcZjFcZmNoYXJzZXQwX SVgdJhfAPDaGFn3dW6G DkohJ51ev4N3Ybd6KBS rECGoS6OoCJ4uJOVrnL PsP39NYhhkYEU3OAMDZ vnfXHJtPK9Lf9bpGCUd qDOuWAV3CYcljBLaQUZ xLUWqZUc5GTOeDCiweU CuNJ7fmVloKdonfVvqr 2VjdCBcXGlkIDUxMDAy BQjnKPYcPK7XFzXfBQB 8DQAvMZWqUTw7FGe6KZ 3VJcGaOSWuBRB4XSE7B PUzIHh6CRnwBT4YQKWu WvZiPQS3BRNcXNArXNI lRRo8VVAtVTgaMQDfeK FsIFxcZnMgMTAgXFxmY eRjOJBzUEiuxhF3EREi YWluXGJcZnMyMCBBOlx lRHJoPXewoSwcwC9iQH WvM10bt8QEg1JePR7LC Id3qeHpvlcjqH6uQNWi kkZfSFdydEZwW4aeKfe iCfIzUhHoPVBIv59spE ZytCRtEQQqq1DfLQl2i zNuP41vX4StDEfmLQSs ikGbNLHauHafV3q2zCT 3XMPxVEImSUQpN80fNT Jhji0jna06ipZxruZti CJwzTAlPjTfh0O6XJRx f4U6UTKuPSSrpXPdxen rGS08OJUkESElJX8fiS VkIHdpdGggcHJvYmFib BHinAfoxgJyvNU8XLFv IWpbKTCbmOpmKHs1UAV 0Ul3vmKPrIFYznkJZMD 3bOLfufw63FZF6q8mpa WVsZHtcKlxmbGRpbnN0 IEhZUEVSTElOSyBuYW1 lPUxJTktCRUdJTnwyMT DxBqdimVQBHHN6UVzoh UfjkJp5d3stwANqj6g0 PDuwDEC8sFvZd0qtlQO bYKhyQwzxzKDbatE7WZ pBCPBUORkKOeAvQT5pF RgIFmxQEsY4BaSzEJP4 BKyUA0YQiVP7Yit5UEl 8fXtcZmxkcnNsdCBcJz AIuH6vsDfjmO1dxTDwD 2hcZnMyMCANClxlcGlj OhHfvAGaAxSogdS7LWH weGEqEVI8GO1pVRJxfd cvMDHoNWEbBGF6WHxlw D60sPYuUNJmOLNegSXt fVxwbGFpbiANClxzbC0 vKeBkf1eroMg2FZXLGe fsfHKplryjlpI9JEUkh 8ofcCuyq9CytZWvBE0s xMjtpK6cKpUdVzREDk5 = Disclaimer (test code = h3yulSVjDDGltHZeKyW 9844) cUIJzVGNwy2uoWHUjlV FuZzEwMzNcZnRuYmpcd YVuUJPnDnJnk7uip469 sCMar0jgQHFaTdS5mHT mTDDqrMCtZ324HJUfZY pzz4hue9TlTUJduTFkk 2O7TSQIppvbfTj3rOdv I51uz8K3OjqxQ1gqDXZ xQZAyN6LiRJ8sFNArIl j3LHE2XGZ8KQChKEPfR 9ZvMQ1oCCPpfCYiQXh9 q4wwfQciQVZfWHB7t1e vREyxwtByUB7eyz2wgZ i0b7zoimInWVMxYJEir GVEILIfA4IqrQrpPi2k oMh2lXvlHnptMBN1Yhz 7RS9olt48vss5qFpwOH LqocbvNqT3MTbpFVZyd qfbIMl5NAxnIUNxjMH5 JUOpdSUhC4SsFJUwYB6 ekvg3GRB8ODcfFBKtGh T1ZOPnqFLzEQIosAzuY Xmoi665UKM1IyElVQ3m H8Ysc3A3jQ8goTOeDQM lqYQpIcBsHIKghx8ffP NaMVcnn0EzWDT0vsR2m DOgdQZmCDGcLW91Yyjb v1BjSquzBED7AAXzodU lw7Aje5xsRqHtguWxN7 dcX8AbFMFcBVBfNVVdQ uQofiEgk9Efd4RdfEHq fBx3x9mfUGVlPAYieCl po9qjAXL3FOYxU7K5eM Zzc0voTIadOCZlzPU9w oC2KKTawCJqZ5ThiT3w LSYfNR4ftok8s5uvMKF 5XKjlRQFhHtP4adH0OB BcaGVhZGVyeTcyMFxmb 598GFL4MfMkCNPfy7Jk V1ZivIagM48ivPzsL73 uXPDfkBpypE3imLdgqS 5cZjBcZnMyNFxxbFxwb ESseyjlZErdqeR9AWxa gphkKOZwXAniS6gbZqR pFPGxlYbhWXkzn9XcCC IuLDIeDitelyA4NCKFb 21xOXVmx8MtSBRnkU9r vCSzLSidkyCloGQ0KSz hdmUgYmVlbiBkZXZlbG 1fHRKvVU9zKTRxldIdp r7kreVuLYOaDFFiA8Vc cmlzdGljcyBkZXRlcm1 blhFfGNT9OGJXXY3BFA JdFBRjx67jDWLreBjql U2maAWkbpKeBBInp3Mp wL0vzEVWRLEjH9jjMD9 vZNzcq0GnsGNdhEFnrL R9DYHmt8DlKiJfyuKwl OHacDXbS3JgbEblU5nc UATqFTKkguTyjHZnk4F wPPAwhUJ9aDLvIE3ULe UQq63oPAMoSHSMmsXaI YBopVlkiTC2flZ0hB1t LiBJZiBhcHBsaWNhYmx fTNPzb608pq5htaD0FR CuWLCvzclvb6HiBSBxP ZBvyI08QXTyQKXzlp4d wpdmnRNdxsGnN5Xbaie 5kY8jBZLfSJuqGFCbPA ZzMjJcbGFuZzEwMzNca GljaFxmMVxkYmNoXGYx PUhaF5wgTyZoOuVfFsc wYXJ9 [facility] Interpretation 2021-10-22 15:30:07 Test Item Value Reference Range Interpretation Comments Submitted Clinical History x3rbvZLlVDFxa0xvDFI (test code = 13493) mbGFuZzEwMzNcZnRuYm pcdWMxIHtccnRmMVxzc 6HbL8XuVcGtBPgsnnAs XGRlZmxhbmcxMDMzXGZ 0bmJqXHVjMVxkZWZmMH buCr4gpQXcyRhfYeMyT CRtl9uaslMErhcnfTj5 d9peYKKlOrN5nJFaDPj kK7fiuaQvrWVkYNWgJL o2sI08AWTqzV3gwPUoB AodeiNeDvQ0QXnvOKYg RsL4YSJkvXSbWKXdC8c yZWQwXGdyZWVuMFxibH HiVJH6nFaab1Y4kNAdm GVldHtcZjBcZnMyMiBO r1WhNTd9jDwyE2AjRXY lJrL2qRMuYGEwKHgdUC CtZSAyheP6fB17ESchh eQ7wDClo3Wao03rw912 wB0uiAScOMU3NGWbNBD boYRpCNVhOHL2JONkxV BiL9xdJQSqQA7gqkwpI LegANfgWHPnhBX1IKRa dTRrA3JdTVPrOWtfBUA mxok3XtKyUn2aiYCnhS tgVRtpe1pfg6bdgXVkU ei6UXDkIpLlYumxUOlc d8Lmt7apKQXslt3xUGS 0oUKxxBxgt1N4nIFzGZ OryWBdqeXsZBHsRqS3L MvyVJ3gwu28YONbHCP6 av5hzSXroRwdqoWlzUI uRCnfP1NlDAXqx761GK LyH6QrBDKqu6H3gwTiW uXaMJBwwBA9shX2TGCq BQr5uVOadjI4mzPvhPD bR4ktnU9wLMKkBG2vvl xco1knKVigANvvXXEwy CZ2vwY2LUCpoHHrZ6Io bJ0eFKYrVBixGVChvsl 7JoDsGd3gjHZsdUxySY xzYmtwYWdlXHBnbmNvb nRccGduZGVjXHBsYWlu XHBsYWluXGYwXGZzMjR hdYyjhIifoN0lKaLuQr CmARhyWM7rOFIyO7oyh IAnTUNiIJHyA7eaAxVs cF9cvBfsVDylhgDwCVA 5NEixx3jmweyfgRJkal H5rQShQrWpLpU1WEltf GFpblxmMVxmczIyXGxh kunlHIRhPZkkU4nrItC tEXUqrFbgWRdlw2KmHP YxXGZzMjJccGFyfX0= Diagnosis (test code = 34) q4aypVOyICJyyOY4QiO eBTGdb8fom7ArjSNhxV IrBSsxcUOtsmPuwy79b BA2iA50XP5wRZDhPaK6 ISWwaqX8Dcf1URDrBHW doXPwN622c8hko6uwnd WwzZN5oQozKZUvfpikC eK1JFkvIGBetwibUAc5 PPnjLTDniHW4IBLkbFU xA8PcYGUjFS2ntaz5XU C2AWqdGQIhHzQ7MAFru HSuCCUugXxiNYkpo692 HRR9TaXgJBJjpmGycZe olR8uXiGnEPGCBhBvYF VdzJebT6SoLGJtbE9dg 4j0MEmgbdTiQDm4NXHy X0dfemdbsnVsf3OueQ1 hz5hbT2IgqEpkI70cx4 uulDMncGE7oDNuLLByn aFeZEZaVBKwgIzyS8u1 aXNccGFyfQ== Gross Description (test z5avsWOtLANkrWTVUAo code = 6091465744) wMVxhbnNpXHNwbHRwZ3 OsfcwbPZxtUA0tNT3xq YsyeWSzzTIdEI6CXRQv ZmYxXHBhcGVydzEyMjQ hZUUjbMWllMP7OKPsGK 1hcmdsMTgwMFxtYXJnc nH9LGSgtMRlR5TwKFDg BY2aoxnwSBC4MFhnxH7 rlwWRFyiaXp4aiTEvqR tcZjFcZmNoYXJzZXQwX BZzaHcaZOYqZOl5uN5K BnewG59va1Q2Ojh2UBA uNNQzX1KtBV1dNGPnbL TcK17AQxbcBWF5VBGOT fvcRQDhVV8If6hoIQXk lDNtYFT4QOkdmVZtJVY aWEInWKv4YTTpMBjiuZ RkWR9ztMccFvkinNvzx 2VjdCBcXGlkIDUxMDAy MYwqTZRvIK9IAzVxJAE 6CKMcRUSeBFu3DYx2WB 9IWiJuILMdWTX0KBV3H OHmQEi0USxlVM3TIXCz ZuTqIAU8UKVkTRPpXHR dXCh7MISjWUngXMEooC FsIFxcZnMgMTAgXFxmY jXzQMJhLBibyzF8XOEw YWluXGJcZnMyMCBBOlx rGNPoGPbkeEvinB1fHE NaZ51cv7AGj8WdBY3FW Om6eeEgrqlsnE9fAYZp uxLtKNssbSIjZ3anRja kGkVlPvZfZVQZh07njZ BxbAEjDIGua8BbFFt4t uAaN71gP0GtNEjaUMPm ipUdKCJoeCheA1e6mKJ 1KZDyEVBlQGKtE79lWX Oath2zqt04mhLpyxPhu OPbcAYhUkAhv3Y8EOZw v3L1ILZjMDUoeXKkbxc tSM22CKZwSOBdHH6neR VkIHdpdGggcHJvYmFib NGaaWnogyArkYY9OJYc VPxaWKHxoBgfMNg0SSU 5Jh4paTHzTURlowDCCA 0xPFvbjr73CKX8l0lhz WVsZHtcKlxmbGRpbnN0 IEhZUEVSTElOSyBuYW1 lPUxJTktCRUdJTnwyMT HyOlsfkRASWVN9RIdzt BwotUk3t1cakBDwm5f2 ISyrOGK1qRtWo7bcpZW iPDtjDaflfTWfbbL6XN bHEHNGNVtVWnAkVZ6fW WpQYvaLKsG7DwQtLQW7 NFaNC1WBjUZ9Lji1NVo 8fXtcZmxkcnNsdCBcJz OIgI4ypNvjxC8mkSLqK 2hcZnMyMCANClxlcGlj FpCscWSlPzJwfcF6NRA xyHVpXMX6NB2cMQArii ahPKAiENAaFGZ4HFjsn O54nSSaSDArKCNtpGDr fVxwbGFpbiANClxzbC0 gPkSxr7wnpWa9GZDKBu ccsMHknipaqdJ5HMMpd 1tluGzvb5EhfBRcBP1q wEydaI4dZcBpWyUVZw8 = Disclaimer (test code = o8gjyUCzQOPsaNNnRrB 9844) iEJVdGLMqd8bzKJDlhH FuZzEwMzNcZnRuYmpcd MRfARGsYgCeu3abd868 aQNcp2mbDIPwXfJ5rSG gOUTbvKWcG405UOMyOX knf9zbj3PxBIXhwFQuf 1J2IXGDtzycvNi2oHmv V23vh3Z2IjsiI8uuYYY uRHQyU9HrXY9cTQGrVf l2HEP7CEB3WXQqZUTwV 6IgPZ2hIRAlsJPcPDw1 j2wnyDvyJRKnKTT7g2e xHOixycMcEY7vuk9haG h9l5mvsnIsYMXyGKRts OVCYQAxG5ParFywUi2x nLs1sIouRwgaTRZ8Fcq 4UX9wwj44gfg1yYbcDX MnxiltByV7XRquLJWll jddETk1EFklRPAkmHH0 ZVBelMOnO5GcAWTxBE6 royo1LYK0RDkxOQMcPj R7SOVfyMLcXEEijGqlE Avhy329FHH1CnUiKU5s F7Dtn4V7lX4xyOXnLKG ttSNaBfLrRMXwsg1uuK JbCEzti0QwDEI1gdP6c KAsyRNtVNFcIZ29Cmyb n9SuZafaNST9MKKcysB no0Nzw3ooUiZfnoYtN3 jhW6JvSFNkBUHpWOTdM yDfmuKzz7Jmb0HomHXr rGy6e2btMGXiLLLxaKi df6coLPB7PGMuP4B8tJ Air8kaEIcvDRBvcTM2l lX1FUJviFHbM6FqyT9z LMGkTS2bukb7a1mcYOD 0KEfsTCIdXaZ2guO4VJ BcaGVhZGVyeTcyMFxmb 069WQV0GeIdNHVkq3Ov B0PvyOwiN28lkIsmB32 qTDOzwNrpvR1otRmijK 5cZjBcZnMyNFxxbFxwb GSpkrfdTBnmydA2TYul pihgUZBlUMqpF8quKqW xLTIqkEqtZHdoj1KeNM JdEWUoDrvcqrV8VAZYq 10jOGPep4PvAMVmdW9i nCLrYOsmpkYmnIY2YMl hdmUgYmVlbiBkZXZlbG 6rOFNcYP5kPJOfxsMmp r9cniGnSQZxVKWyF5Pp cmlzdGljcyBkZXRlcm1 sjlNoFZA6BQHQCT8NNO HoZSKpf56tEHCcwQalp Z2afPJwyyHiUFEbb9Ah rU3tdJJIQEClU7pcNI2 yNMxyo4ObmEKojRBtjA N7AXIfv2YtNtGpvpPnt QAiwSIbB4PsdXgkT1ld TELmWZIxhyTriDNnm9O qAKSrrZJ2wMGsMP6POx QJj22tMGSnSXLZvqZgH UWauWqbjWX4mdH8aH7w LiBJZiBhcHBsaWNhYmx hYVJpo474um3sgxJ4XN ZlTPJnsmhrq4NrXYEmP DIgvB18ESXiQKCpwh9w yokiaDAggcNxK5Casek 2pJ5zUTBxNCzqULBtSM ZzMjJcbGFuZzEwMzNca GljaFxmMVxkYmNoXGYx YWldY5wkOeLyKeWhBdb wYXJ9 [facility] 2021-10-22 15:30:07 Test Item Value Reference Range Interpretation Comments Submitted Clinical History f2exqHXbYHJvw2mjUZA (test code = 67876) mbGFuZzEwMzNcZnRuYm pcdWMxIHtccnRmMVxzc 8QcN3FpInGpCJppfhSb XGRlZmxhbmcxMDMzXGZ 0bmJqXHVjMVxkZWZmMH lmPu6hnUKquVpoRtSzF HPzc2zlgzPSlfrgzTv0 l1rkTVLjYrU7tXNmAKv hK7bqwkNkwYDjEDCiEH z0nY21WEEilJ5nwQToQ SbcdyTkEbA4DQowUNHc DzA6SSTaaCUgXQJsS9t yZWQwXGdyZWVuMFxibH HgZAM6cIywk7Z7cOKer GVldHtcZjBcZnMyMiBO e4AjJVu2nQyjE9JaASN vTrP8fYPsWDUbTHzdWV EoKZRpmjX2vA49SRqhn vR8sJBtg8Kzs04an805 bZ2cvFIwEIK3HLGuDYW wgGAqSBXaURZ5QINezI DnU6uvDANaAM9tjtmyX TzqGHymLQJxaDC6RFEf jMObS3LdPLIvDGfoIIE oayt3UyZeSs1qvNSydW yyATuco1ylv9zjqBSrD ri2MFHkDmOhLiteFXtm l6Dny1llACPosb8pKWH 9sHFqgApim8I7yBTcYG SetRSubeAkWKHySnM2M VqeHS4azz91MXChUFJ0 zx4qaZJvtZofdkUdoYM vJVpjV9BcQRWnv461NS YcT1FhGUDyk9H2ziJsN yCdBIMsdRV8usS9KJWp TJw5jARjvnD4otAeaPG fU5zrxT2bNZHdHA6hgc pdp1gbFTrsUPgaSFXcn IH4iaJ2QEGbtUMvY1Fe gF7jJEJqDFafKRAgmlm 3SvKqUl1rxJVvqEnmYC xzYmtwYWdlXHBnbmNvb nRccGduZGVjXHBsYWlu XHBsYWluXGYwXGZzMjR yhVuzrLhmgA4oDpKcXz RqDYojFH2kOCIkW5sbz EIuRDBoPORtN7miXrIq eQ3alQmyFFphfxHaROS 6VWjgo5lpvtsrtWLhfe U9aCYxKaSnPxY9XKmse GFpblxmMVxmczIyXGxh qhlnEXAgKKoiK7blBfH yGQLqrDcdMFykl2SqWS YxXGZzMjJccGFyfX0= Diagnosis (test code = 34) o4ffrWNmNXQkjGH5VfM vOQGlh9acz1RbuIUoiI BcYQpahMCfhfAils57t LP7uY48VB5uPLLyPkX5 QQZhnhU2Ioj3XUHoBWW xvTZyU527h2dbo0wdzj QtlQM1qRfgOFBsqofmJ pE4CCpeXWViipulPTn2 LFdjSYUqpWC2XDMaxVH yI9KqSSOaUE8ofrt7GJ I3VLwtONMfNeW2HQYqf CKzFLAsaPuzKErsr598 VIP9ElPdCNPfipUohEc kiU1fYxHbURVNTzBbLH DfrQsqN0RsMAYfaY7qg 3i0LLbjwrMfXJk2KKPv O4clabduzyXut2GmzS5 hu6unG0KtzEkqO34ix7 dyqHRioHJ6aVKiLFLfx wNvEMVdPZNieYbbE1o4 aXNccGFyfQ== Gross Description (test l4fwhDWmLWYiaTUZFYt code = [id number]) wMVxhbnNpXHNwbHRwZ3 JivrehZXywXU5nVZ9hz ReanFOzvSBsPD7QLCOa ZmYxXHBhcGVydzEyMjQ pOEFbzAOmlAX7JEBpBB 1hcmdsMTgwMFxtYXJnc xZ1CZZyhRGsE2RfISJg SE5zsbwoWUB7AEbwaQ2 onuGDZgiyBw9ldZUegF tcZjFcZmNoYXJzZXQwX YDhjCgoMBWxWJo3eK2H EsjcE57yb4O5Jfu5ZPI nPNAuD2HpJP2gUWNgjX ZfH28RGzzyTEY7HCNML mfpAVVtMY2Nc0ulIGYh zFXoBYK9KJgixMMyASF bSOQbWEj0RMKnTTqtbA IlUK5gdPkuQhwanEkmn 2VjdCBcXGlkIDUxMDAy XAimJGPbBG9QWpUgLUY 0HVOkBREsIOm7NCe6EK 5KRlWsCMAsNBB4FPF8K GAtTEp2XPezBW7EQZOy HsRiEHK4GIEaJOFbWWW hRDo8SDZuGTbmDNTzqA FsIFxcZnMgMTAgXFxmY tMmEAKwCKmvelF8YMQe YWluXGJcZnMyMCBBOlx xQEFySAsmxBlphO3sTD QwM62yg6DGj8LzKK9YR Gm5xaNfyqcgiA4oMVCu epLuPFmqqIUkX6xcQhy kIkJyXwGuNBTDw34alM TkuOEiQROas3TyQVj4i eDzU35eO1MpQBafFNBy rdMvOWVmzAlnU5a4bUG 7FFVgPTEmCSIwN21eIX Wvne5jka46zcSpsgQgr YRhiGBaIdKmh6L6LJJg t9J2XDUeWBYjqFBytpw uIP11LPNqCOMtAC2qmA VkIHdpdGggcHJvYmFib GLysNdvlyAlmEV4YENi WPmiCZXaxWbfHQs5GMS 8Eo3xwOSiTODnxlQAFA 0bVMaovo56JXX6d9dby WVsZHtcKlxmbGRpbnN0 IEhZUEVSTElOSyBuYW1 lPUxJTktCRUdJTnwyMT GmXszofAKUGZV5ECney TdiuFx7b1shqPPho0f2 ESbxXKS7nGkKs1mbpJO gUJziRwmylJRjtqX4CI sIGOUGRGgDQlAxZM8tC AfTHgjKEnY1EbEvHIV0 HAhCF2PWbIU5Iyc0VAu 8fXtcZmxkcnNsdCBcJz ZCpE8szEaoqV3bnRHwG 2hcZnMyMCANClxlcGlj PgXtxOVgKzVnphO4GSD ukTTbOQC6RE0qSWCqrf knIQFnWKXgSUQ1YPvql T84hHLgNFZpHWCroRBf fVxwbGFpbiANClxzbC0 fJwKeh4qfwEg4MHGQPy bvxPZxbgkonhM2NJPil 4tkxHzsm8XlzSFyWI2z qRdgxZ1bKwPcYzWTXv5 = Disclaimer (test code = b1dcgKMmKHAwfSHpKsL 9844) oWYKgLHQkx4mlXZWpcE FuZzEwMzNcZnRuYmpcd PJfFHIrHhGtg9utm839 aJYxs9kaYBCwPkN5qTO aVCUghBWvD067SMFjTJ ofr2skh0ZeGIHuxVKwx 7U7WSLXzcegpFk6cOaq X11vi4V0CfrfH7tpRYS zHEXdZ3DcLL1mBCCuIf c2FIG7JDT6ZAQwARKnL 1ZuWU3vAIQsrDDxNRy9 p1eylChtZKNdDBF4m3d hSXdswmGtTU7ebd2tmN s0s1qehtOiSQRpEGKyf RBEGQJrU2MdoJomHp0c bAg5fIslZtvzILI0Nzy 9SW0yrb69sss8wHsrVB WmfxxbUdK8PScfRCHpl yiuKXe7QHweODHbwHJ0 QNKfvXGeB5YxBHJxLW5 gmei8NYG5PJimWSSkJu N7ITXraOVsYXZgzEmdG Lypq497OVK6RiXoQA4x V3Muy1K7tO5idZHzDYQ daEFtVhVrMVDttt5dtZ YgRLpzq1PdZYB1fqZ0t UTaoMXiEPYgDE88Gbhr s5EvEeqgPYR1GOTnvhD cl6Zzl0kfMfNtjrOeF9 inG0ZrPZLuLAQqSEUqD eNizqMtt1Brq2XzcVQa yGx3e6atGRChCPAusSs tx3muXHL7AGIdO8N7tI Six7ocFMidCEHusPJ1s gR0SEVhlSYoU9YliK2w AUQqIS0qdhj9k5rgWFX 9PJqnSMCqElR3swP4EY BcaGVhZGVyeTcyMFxmb 531JSZ4TgVfIDFsg0Ow R4OxjAeeE54qbNddB28 vVMKvgVuloT4mtOlxuB 5cZjBcZnMyNFxxbFxwb YZuzmeaVAxrocH7MZnh nnwfWGWuPVoeO1wrBbG qOFTmpLbdOVwrl1BgCK VhZSYaQoflflO8SGRYs 46eBBMks0DxRLCtkL2b wGUhIYrollLmnGA7SIs hdmUgYmVlbiBkZXZlbG 0sROSrGD8pZAGsvkDaf v4obmZaLCFhFTDjO4Cr cmlzdGljcyBkZXRlcm1 mboVvSOU1RYEPUX6XYF IoMDObi45yRLEwmRnwh Q5stYIcbwYqBTIvk8Xn cO0hzYYPTGMxF0tjOO2 uNZfnv6DezCPwaTJgwJ K4OYPtj7TjRiRfwvTox LRbuRYxQ8KrzDilW4ek BSAwWGRvqhDdyFKzr8P vKTSmpCR1qJQtII4FAz RPm42oXYSwLIPUdrEeU JZrcMhlfTP4ekU7gD7w LiBJZiBhcHBsaWNhYmx lZEImy767kn7lwbN5WA HdCBWollmcx9GsSLZaP EAxyH38KMKhCXTaqv6c lepygIPuzsSfD5Rifne 2uV9oNRBhCDvgRGVlTP ZzMjJcbGFuZzEwMzNca GljaFxmMVxkYmNoXGYx CMedM8iqEsZwMmKyAzz wYXJ9 [facility] [place], [id number] 18:04:34 Test Item Value Reference Interpretation Comments [...] for thesemodifi cations were determined by [employer] [facility].If samp le result is greater than 50 0 pg/mL, physician may o rder atiter of the sample. Please contact [employer] [facility] if you wouldlike t o order a retest of this sample to obtain an actua l value.Samples a re held for 1 week after in itial testing date. Perf ormed At:[employer] [facility] [id number] [address] [id number] Director: Andi Taylor Ph.D ., BCLD (ABB)CLIA#: [id number] e: Lab Interpretation Abnormal (test code = 93023-4) [facility] [place], [id number] 18:04:34 Test Item Value Reference Interpretation Comments [...] for thesemodifi cations were determined by [facility] [employer] [facility].If samp le result is greater than 50 0 pg/mL, physician may o rder atiter of the sample. Please contact [employer] [facility] if you wouldlike t o order a retest of this sample to obtain an actua l value.Samples a re held for 1 week after in itial testing date. Perf ormed At:[employer] [facility] [id number] [facility] [employer] [place] [address]Xjqhbpwsip Director: Andi Taylor Ph.D ., YUSEF (MEETA)CLIA#: [id number] e: Lab Interpretation Abnormal (test code = 65759-6) [facility] [place], [id number] 18:04:34 Test Item Value Reference Interpretation Comments [...] for thesemodifi cations were determined by [employer] [facility].If samp le result is greater than 50 0 pg/mL, physician may o rder atiter of the sample. Please contact [facility] [facility] if you wouldlike t o order a retest of this sample to obtain an actua l value.Samples a re held for 1 week after in itial testing date. Perf ormed At:[employer] [facility] sp[address] [place] [id number] Director: Andi Taylor Ph.D ., BCLD (ABB)CLIA#: [id number] e: Lab Interpretation Abnormal (test code = 98569-9) [facility] Review 2021-10-18 14:39:17RMP PRReviewed and Electronically signed by Pathologist:Mary Beth Parikh MD, PhD #[id number] [facility] Path [id number] 14:39:17RMP PRReviewed and Electronically signed by Pathologist:Mary Beth Parikh MD, PhD #[id number] [facility] Path [id number] 14:39:17RMP PRReviewed and Electronically signed by Pathologist:Mary Beth Parikh MD, PhD #[id number] [facility]Res[facility] Panel, [address] [id number] 14:29:47 Test Item Value Reference Range Interpretation Comments Adenovirus (test code = 4748) Not Detected Not Detected Coronavirus 229E (test code = Not Detected Not Detected 5349) Coronavirus HKU1 (test code = Not Detected Not Detected 5350) Coronavirus NL63 (test code = Not Detected Not Detected 535) Coronavirus OC43 (test code = Not Detected [...] 6203) Lab Interpretation (test code = Abnormal 23720-6) [facility] [place]piratory PCR Panel, [address] Swab 2021-10-18 14:29:47 Test Item Value Reference [...] 6203) Lab Interpretation (test code = Abnormal 97100-3) [facility] [address] Swab 2021-10-18 14:29:47 Test Item Value Reference [...] 6203) Lab Interpretation (test code = Abnormal 77395-2) [facility] Glucose [id number] 11:58:24 Test Item Value Reference Interpretation Comments Range POC Glucose (test 196 mg/dL 70-99 H RN Notifie dCapillary code = 87298-4) blood sample s, e.g. obtained by fingerstick, [...] Capillary code = 9554) Performing Lab (test [facility] code = 57407) [facility], [address] [place] [address] 30; Occupational Therapy Assistant: Aletha Arciniega MD Lab Interpretation Abnormal (test code = 03249-4) [facility] Glucose [id number] 11:58:24 Test Item Value Reference Interpretation Comments Range POC Glucose (test 196 mg/dL 70-99 H RN Notifie dCapillary code = 66710-9) blood sample s, e.g. obtained by fingerstick, [...] Capillary code = 9554) Performing Lab (test [facility] code = 10265) [facility] Marianela gustafson Clinical Lab, [address] [place] [address] 30; Occupational Therapy Assistant: Aletha Arciniega MD Lab Interpretation Abnormal (test code = 28218-9) [facility] Glucose [id number] 11:58:24 Test Item Value Reference Interpretation Comments Range POC Glucose (test 196 mg/dL 70-99 H RN Notifie dCapillary code = 57843-4) blood sample s, e.g. obtained by fingerstick, [...] Performing Lab (test [facility] code = 38139) [facility] MD Marianela gustafson Clinical Lab, [address] [facility], [place], [place] [address] 30; Occupational Therapy Assistant: Aletha Arciniega MD Lab Interpretation Abnormal (test code = 77471-1) [facility] Screening [id number] 18:35:38 Test Item Value Reference Range Interpretation Comments Final Report (test No Methicillin resistant code = 8488) Staphylococcus aureus isolated. Path Review (test The results have been code = 8492) reviewed and electronically signed by Pathologist:Mary Beth Parikh MD, PhD #[id number] [facility] Screening [id number] 18:35:38 Test Item Value Reference Range Interpretation Comments Final Report (test No Methicillin resistant code = 8488) Staphylococcus aureus isolated. Path Review (test The results have been code = 8492) reviewed and electronically signed by Pathologist:Mary Beth Parikh MD, PhD #[id number] [facility] Screening [id number] 18:35:38 Test Item Value Reference Range Interpretation Comments Final Report (test No Methicillin resistant code = 8488) Staphylococcus aureus isolated. Path Review (test The results have been code = 8492) reviewed and electronically signed by Pathologist:Mary Beth Parikh MD, PhD #[id number] [facility] Vancomycin trough on 10/17/21@10:30AM. Nurse please [...] is code = not availablefo r this 73153-4) sample. The donna e reported is the samplecollectio n date. Vanco Tr Dose 10/17/2021 Level, date, a nd time Date (test of previous dos e is code = not availablefo r this 13754-6) sample. The donna e reported is the samplecollectio n date. PAIGE (test Vancomycin trough on code = PAIGE) 10/17/21@10:30AM. Nurse please coordinate with lab to draw trough approximately 11 - 11.5hours after 10/16/21 evening vanco dose. Hold vancomycin doses if trough is greater than 20 and notify MD. Thanks! [facility] AmstonVancomycin Trough Vancomycin trough on 10/17/21@10:30AM. Nurse please [...] is code = not availablefo r this 82259-7) sample. The donna e reported is the samplecollectio n date. Vanco Tr Dose 10/17/2021 Level, date, a nd time Date (test of previous dos e is code = not availablefo r this 32909-7) sample. The donna e reported is the samplecollectio n date. PAIGE (test Vancomycin trough on code = PAIGE) 10/17/21@10:30AM. Nurse please coordinate with lab to draw trough approximately 11 - 11.5hours after 10/16/21 evening vanco dose. Hold vancomycin doses if trough is greater than 20 and notify MD. Thanks! [facility] Vancomycin trough on 10/17/21@10:30AM. Nurse please [...] is code = not availablefo r this 48063-4) sample. The donna e reported is the samplecollectio n date. Vanco Tr Dose 10/17/2021 Level, date, a nd time Date (test of previous dos e is code = not availablefo r this 50032-3) sample. The donna e reported is the samplecollectio n date. PAIGE (test Vancomycin trough on code = PAIGE) 10/17/21@10:30AM. Nurse please coordinate with lab to draw trough approximately 11 - 11.5hours after 10/16/21 evening vanco dose. Hold vancomycin doses if trough is greater than 20 and notify MD. Thanks! [facility]Legionella [facility]rine Antigen Path Wrtxjf7720-23-61 15:56:29Legionella Urine Antigen Path ReviewReviewed and Electronically signed by Pathologist:Mary Beth Charles, PhD #[id number] [facility]Un[facility] HospitalLegionella Urine Antigen Path Uiawgw1755-27-04 15:56:29Legionella Urine Antigen Path ReviewReviewed and Electronically signed by Pathologist:Mary Beth Charles, PhD #[id number] [facility] Legionella Urine Antigen Path [id number] 15:56:29Legionella Urine Antigen Path ReviewReviewed and Electronically signed by Pathologist:Mary Beth Charles, PhD #[id number] [facility] Cancer EmsxsoHxdlilqjymamh5905-89-52 11:00:32 Test Item Value Reference Range Interpretation Comments Procalcitonin (test code <0.04 See_Comment Pro calcitonin > 2.00 = 48070-5) ng/mL: Procalci tonin levels above 2. 00 [...] d ilution as it exceeds t he stave hewer's recommended ching it. Caution should be exercised when interpreting nunez ch values and done in con junction with clinical c ontext. [Automated mess age] The system which ge nerated this result tra nsmitted reference range : <=0.08 ng/mL. The refe rence range was not u sed to interpret this result as normal/abnormal . [facility] HospitalProcalcitonin2022-[facility] 11:00:32 Test Item Value Reference Range Interpretation Comments Procalcitonin (test code <0.04 See_Comment Pro calcitonin > 2.00 = 16507-1) ng/mL: Procalci tonin levels above 2. 00 [...] d ilution as it exceeds t he stave hewer's recommended ching it. Caution should be exercised when interpreting nunez ch values and done in [facility] with clinical c ontext. [Automated mess age] The system which ge nerated this result tra nsmitted reference range : <=0.08 ng/mL. The refe rence range was not u sed to interpret this result as normal/abnormal . [facility] HospitalProcalcitonin2022-[facility]-20 11:00:32 Test Item Value Reference Range Interpretation Comments Procalcitonin (test code <0.04 See_Comment Pro calcitonin > 2.00 = 52492-5) ng/mL: Procalci tonin levels above 2. 00 [...] d ilution as it exceeds t he stave hewer's recommended ching it. Caution should be exercised when interpreting nunez ch values and done in [facility] with clinical c ontext. [Automated mess age] The system which ge nerated this result tra nsmitted reference range : <=0.08 ng/mL. The refe rence range was not u sed to interpret this result as normal/abnormal . [facility] HospitalLegionella Urine [id number] 19:49:58 Test Item Value Reference Range Interpretation Comments Legionella Urine Antigen Negative Interpretation (test code = 3612741) [facility]Legionella Urine Rfwdzud7473-17-87 19:49:58 Test Item Value Reference Range Interpretation Comments Legionella Urine Antigen Negative Interpretation (test code = 2103489) [facility] HospitalLegionella Urine Jaddcom7106-16-04 19:49:58 Test Item Value Reference Range Interpretation Comments Legionella Urine Antigen Negative Interpretation (test code = 9080165) [facility] Frfzcp1432-10-76 18:06:35Streptococcal Urine Antigen Path ReviewReviewed and Electronically signed by Pathologist:Mary Beth Parikh MD, PhD #[id number] [facility]Un[facility] Hospitaltreptococcal Urine Antigen Path Vpfqoy0683-32-82 18:06:35Streptococcal Urine Antigen Path ReviewReviewed and Electronically signed by Pathologist:Mary Beth Parikh MD, PhD #[id number] [facility] Streptococcal Urine Antigen Path Fxlmxo5946-27-12 18:06:35Streptococcal Urine Antigen Path ReviewReviewed and Electronically signed by Pathologist:Mary Beth Parikh MD, PhD #[id number] [facility]Un[facility] Hospitaltreptococcus pneumoniae Urine Wetkyyd6447-14-72 16:43:46 Test Item Value Reference Range Interpretation Comments Streptococcal Urine Antigen Negative Negative Interpretation (test code = 82760241) [facility]ertreptococcus pneumoniae Urine Dnskkwp4223-48-95 16:43:46 Test Item Value Reference Range Interpretation Comments Streptococcal Urine Antigen Negative Negative Interpretation (test code = 57383479) [facility]ertreptococcus pneumoniae Urine Izuhbow3321-88-22 16:43:46 Test Item Value Reference Range Interpretation Comments Streptococcal Urine Antigen Negative Negative Interpretation (test code = 34825941) [facility]Trop[facility] ([facility])2021-10-15 18:48:52 Test Item Value Reference Range Interpretation Comments Troponin T (test code = 23 ng/L See_Comment H < 19 ng/L Suggest 59126-2) retest at 3 to 6 hours later to rule o ut myocardial infa rction >= 19 to <=52 n g/L Possible myocar dial injury. Suggest retest at 3 hours. - a change of < 20 ng/L, r etest at 6 hours - a change of >= 20 ng/L, suggestive of myocardial inf arction > 52 ng/L Sugge stive of myocardial infarction Crit ical value will be r eported when cTnT is > 52 ng/L and only report ed for the first in a series. Hemolyzed speci mens with Hemolysis Index >100 (100 mg/dl or moderate hemoly sis) may cause interferences a nd falsely low res ults. [Automated [employer] age] The system CC video generated this result transmitted ref erence range: <=18. Th e reference range was not used to int erpret this result as normal/abnormal . Lab Interpretation Abnormal (test code = 61491-2) [facility]Troponin [facility] (In-House)2021-10-15 18:48:52 Test Item Value Reference Range Interpretation Comments Troponin T (test code = 23 ng/L See_Comment H < 19 ng/L Suggest 40694-4) retest at 3 to 6 hours later [...] a nd falsely low res ults. [Automated [employer] age] The system CC video generated this result transmitted ref erence range: <=18. Th e reference range was not used to int erpret this result as normal/abnormal . Lab Interpretation Abnormal (test code = 12190-9) [facility]2021-10-15 18:48:52 Test Item Value Reference Range Interpretation Comments Troponin T (test code = 23 ng/L See_Comment H < 19 ng/L Suggest 81423-7) retest at 3 to 6 hours later [...] res ults. [Automated mess age] The system CC video generated this result transmitted ref erence range: <=18. Th e reference range was not used to int erpret this result as normal/abnormal . Lab Interpretation Abnormal (test code = 66476-1) [facility] HospitalLDH2022-04-18 16:36:02 Test Item Value Reference Range Interpretation Comments LDH (test code = 247 U/L 135-225 H Results gre ater than 74266-8) 1651 U/L may no t be reliable due to matrix effect w ith extended diluti on as it exceeds the stave hewer's recommended ching it. Caution should be exercised when interpreting nunez ch values and done in [facility] clinical contex t. Lab Interpretation (test Abnormal code = 22016-7) [facility] HospitalLDH2022-04-[facility] 16:36:02 Test Item Value Reference Range Interpretation Comments LDH (test code = 247 U/L 135-225 H Results gre ater than 72094-0) 1651 U/L may no t be reliable due to matrix effect w ith extended diluti on as it exceeds the stave hewer's recommended ching it. Caution should be exercised when interpreting nunez ch values and done in [facility] clinical contex t. Lab Interpretation (test Abnormal code = 47739-0) [facility] HospitalLDH2022-04-[facility] 16:36:02 Test Item Value Reference Range Interpretation Comments LDH (test code = 247 U/L 135-225 H Results gre ater than 11227-6) 1651 U/L may no t be reliable due to matrix effect w ith extended diluti on as it exceeds the stave hewer's recommended ching it. Caution should be exercised when interpreting nunez ch values and done in [facility] clinical contex t. Lab Interpretation (test Abnormal code = 45636-6) [facility] HospitalNT-Pro BNP (In-House)2021-10-15 16:31:03 Test Item Value Reference Range Interpretation Comments NT ProBNP (test code = 137 pg/mL See_Comment H [Aut omated message] 60387-0) The system CC video generated this result transmit lakhwinder reference range : <=125. The refe rence range was not u sed to interpret th is result as normal/abnormal . Lab Interpretation (test Abnormal code = 44255-2) [facility] (In-House)2021-10-15 16:31:03 Test Item Value Reference Range Interpretation Comments NT ProBNP (test code = 137 pg/mL See_Comment H [Aut omated message] 46816-1) The system CC video generated this result transmit lakhwinder reference range : <=125. The refe rence range was not u sed to interpret th is result as normal/abnormal . Lab Interpretation (test Abnormal code = 51936-5) [facility]NP (In-House)2021-10-15 16:31:03 Test Item Value Reference Range Interpretation Comments NT ProBNP (test code = 137 pg/mL See_Comment H [Aut omated message] 41396-7) The system CC video generated this result transmit lakhwinder reference range : <=125. The refe rence range was not u sed to interpret th is result as normal/abnormal . Lab Interpretation (test Abnormal code = 00222-2) [facility] HospitalCreatine Xqktrt2583-89-03 16:31:01 Test Item Value Reference Range Interpretation Comments CK (test code = 2157-6) 48 U/L 39-308 [facility] HospitalCreatine Usohzb5488-99-56 16:31:01 Test Item Value Reference Range Interpretation Comments CK (test code = 2157-6) 48 U/L 39-308 [facility] HospitalCreatine Ukwckh4473-06-75 16:31:01 Test Item Value Reference Range Interpretation Comments CK (test code = 2157-6) 48 U/L 39-308 [facility] HospitalCKMB2022-04-18 16:31:00 Test Item Value Reference Range Interpretation Comments CK MB (test code = 2.2 ng/mL See_Comment [Automat ed message] The 55069-5) system which ge nerated this result tra nsmitted reference range : <=10.4. The reference r jose was not used to int erpret this result as normal/abnormal . [facility]2022-04-18 16:31:00 Test Item Value Reference Range Interpretation Comments CK MB (test code = 2.2 ng/mL See_Comment [Automat ed message] The 16000-3) system which ge nerated this result tra nsmitted reference range : <=10.4. The reference r jose was not used to int erpret this result as normal/abnormal . [facility]2022-04-18 16:31:00 Test Item Value Reference Range Interpretation Comments CK MB (test code = 2.2 ng/mL See_Comment [Automat ed message] The 28026-4) system which ge nerated this result tra nsmitted reference range : <=10.4. The reference r jose was not used to int erpret this result as normal/abnormal . [facility] HospitalCOVID-19 (SARS-CoV-2)Lubnpnckkvzp-UN2863-11-18 16:04:24 Test Item Value Reference Range Interpretation Comments COVID19 Not Detected Not Detected (SARS-CoV-2) (test code = 96249-0) COVID19 SARS Inpatient Indication (test Admission code = 91711) Covid 19 Comment See Note The kacy S ARS-CoV-2 (test code = [place] [address]) use on the xenia s [employer] System [...] ect COVID-19. A fac t sheet for patinany nts provided by the stave hewer ([employer]) can be rev iewed at: https://www.fda .gov/m edia/729991/kunal nload. A fact sheet fo r Health Care pro viders is provided by the stave hewer ([employer]) and can be reviewed at: https://www.fda .gov/m edia/226884/kunal nload Results must be interpreted wit hin [...] is assay has been authorized by t FDA for use only un areli Emergency Use Authorization ( EUA) in laboratories that have been CLIA-certified to perform moderate-comple xity and high-comple xity tests. The Microbiology Laboratory at [facility], CLIA Accreditation #[id number] and CAP Accreditation #[id number], verif ied the performance characteristics of this assay. Int ernal controls are us ed to monitor all sta ges of the test proces s. [facility] HospitalCOVID-19 (SARS-CoV-2)Hosoqptprwkk-HO4613-31-18 16:04:24 Test Item Value Reference Range Interpretation Comments COVID19 Not Detected Not Detected (SARS-CoV-2) (test code = 61519-0) COVID19 SARS Inpatient Indication (test Admission code = 97604) Covid 19 Comment See Note The kacy S ARS-CoV-2 (test code = [place] [address]) use on the xenia s [employer] System [...] sheet for patie nts provided by the stave hewer ([employer]) can be rev iewed at: https://www.fda .gov/m edia/081724/kunal nload. A fact sheet fo r Health Care pro viders is provided by the stave hewer ([employer]) and can be reviewed at: https://www.fda .gov/m edia/137053/kunal nload Results must be interpreted wit hin [...] is assay has been authorized by t FDA for use only un areli Emergency Use Authorization ( EUA) in laboratories that have been CLIA-certified to perform moderate-comple xity and high-comple xity tests. The Microbiology Laboratory at [facility], CLIA Accreditation #[id number] and CAP Accreditation #[id number], verif ied the performance characteristics of this assay. Int ernal controls are us ed to monitor all sta ges of the test proces s. [facility] HospitalCOVID-19 (SARS-CoV-2)Jzirsiemrncq-XB0508-13-18 16:04:24 Test Item Value Reference Range Interpretation Comments COVID19 Not Detected Not Detected (SARS-CoV-2) (test code = 83055-6) COVID19 SARS Inpatient Indication (test Admission code = 93252) Covid 19 Comment See Note The kacy S ARS-CoV-2 (test code = [place] [address]) use on the xenia s [employer] System [...] sheet for patie nts provided by the stave hewer ([employer]) can be rev iewed at: https://www.fda .gov/m edia/255767/kunal nload. A fact sheet fo r Health Care pro viders is provided by the stave hewer ([employer]) and can be reviewed at: https://www.fda .gov/m edia/565355/kunal nload Results must be interpreted wit hin [...] is assay has been authorized by t [facility] for use only un areli Emergency Use Authorization ( EUA) in laboratories that have been CLIA-certified to perform moderate-comple xity and high-comple xity tests. The Microbiology Laboratory at [facility], CLIA Accreditation #[id number] and CAP Accreditation #[id number], verif ied the performance characteristics of this assay. Int ernal controls are us ed to monitor all sta ges of the test proces s. [facility] HospitalaPTT2022-04-18 15:47:24 Test Item Value Reference Range Interpretation Comments aPTT (test code = 29.9 See_Comment [Automate d message] The 29415-1) system which ge nerated this result transmit lakhwinder reference range : 24.7 - 36.8 second(s). The reference range was not used to interpr et this result as paras l/abnormal. [facility] HospitalaPTT2022-04-18 15:47:24 Test Item Value Reference Range Interpretation Comments aPTT (test code = 29.9 See_Comment [Automate d message] The 53415-0) system which ge nerated this result transmit lakhwinder reference range : 24.7 - 36.8 second(s). The reference range was not used to interpr et this result as paras l/abnormal. [facility] HospitalaPTT2022-04-18 15:47:24 Test Item Value Reference Range Interpretation Comments aPTT (test code = 29.9 See_Comment [Automate d message] The 53383-9) system which ge nerated this result transmit lakhwinder reference range : 24.7 - 36.8 second(s). The reference range was not used to interpr et this result as paras l/abnormal. [facility] HospitalProthrombin Time with [id number] 15:47:23 Test Item Value Reference Range Interpretation Comments PT (test code = 5902-2) 13.5 See_Comment [Au tomated message] The system CC video generated this result transmitted ref erence range: 11.5 - 1 3.9 second(s). The reference range was not used to int erpret this result as normal/abnormal . INR (test code = 6301-6) 1.11 0.90-1.10 H Lab Interpretation (test Abnormal code = 11463-6) [facility] HospitalProthrombin Time with [id number] 15:47:23 Test Item Value Reference Range Interpretation Comments PT (test code = 5902-2) 13.5 See_Comment [Au tomated message] The system CC video generated this result transmitted ref erence range: 11.5 - 1 3.9 second(s). The reference range was not used to int erpret this result as normal/abnormal . INR (test code = 6301-6) 1.11 0.90-1.10 H Lab Interpretation (test Abnormal code = 16511-6) [facility] HospitalProthrombin Time with [id number] 15:47:23 Test Item Value Reference Range Interpretation Comments PT (test code = 5902-2) 13.5 See_Comment [Au tomated message] The system CC video generated this result transmitted ref erence range: 11.5 - 1 3.9 second(s). The reference range was not used to int erpret this result as normal/abnormal . INR (test code = 6301-6) 1.11 0.90-1.10 H Lab Interpretation (test Abnormal code = 16632-1) [facility] HospitalRespiratory Viral Panel + COVID-19, Nasopharyngeal Wcuq3731-17-57 01:19:11 Test Item Value Reference Range Interpretation Comments Adenovirus (test code = Not Detected Not Detected 7765) Coronavirus 229E (test Not Detected Not Detected code = 5349) Coronavirus HKU1 (test Detected Not Detected A code = 5350) Coronavirus NL63 (test Not Detected Not Detected code = 5351) Coronavirus OC43 (test Not Detected Not Detected code = 5352) COVID19 (SARS-CoV-2) Not Detected Not Detected (test code = 32568-4) Human Metapneumovirus Not Detected Not Detected (test [...] Detected Not Detected Parapertussis (test code = 45269) Bordetella pertussis Not Detected Not Detected (test [...] including SARS-CoV-2, from a single nasopharyngeal swab (EMBEDDED PROCESSOR) specimen obtained from individuals suspected of respiratory [...] that may not be detected by an EMBEDDED PROCESSOR specimen. Internal controls are used to monitor [...] and high-complexity tests. The Microbiology Laboratory at [facility], CLIA Accreditation #[id number] and CAP Accreditation #[id number], verified the performance characteristics of this assay. Microbiology Laboratory at [facility] performs the assay using the [employer] System. Lab Interpretation Abnormal (test code = 36202-1) [facility] HospitalRespiratory Viral Panel + COVID-19, Nasopharyngeal Dxwn6975-85-90 01:19:11 Test Item Value Reference Range Interpretation [...] Not Detected Not Detected (test code = 77738-7) Human Metapneumovirus Not Detected Not Detected (test [...] Detected Not Detected Parapertussis (test code = 84492) Bordetella pertussis Not Detected Not Detected (test [...] including SARS-CoV-2, from a single nasopharyngeal swab (EMBEDDED PROCESSOR) specimen obtained from individuals suspected of respiratory [...] that may not be detected by an EMBEDDED PROCESSOR specimen. Internal controls are used to monitor [...] and high-complexity tests. The Microbiology Laboratory at [facility], CLIA Accreditation #[id number] and CAP Accreditation #[id number], verified the performance characteristics of this assay. [facility] Laboratory at [facility] performs the assay using the [employer] System. Lab Interpretation Abnormal (test code = 41246-3) [facility] HospitalRespiratory Viral Panel + COVID-19, Nasopharyngeal Hjez0892-19-27 01:19:11 Test Item Value Reference Range Interpretation Comments Adenovirus (test code = Not Detected Not Detected 0088) Coronavirus 229E (test Not Detected Not Detected code = 5349) Coronavirus HKU1 (test Detected Not Detected A code = 5350) Coronavirus NL63 (test Not Detected Not Detected code = 5351) Coronavirus OC43 (test Not Detected Not Detected code = 5352) COVID19 (SARS-CoV-2) Not Detected Not Detected (test code = 09712-6) Human Metapneumovirus Not Detected Not Detected (test [...] Detected Not Detected Parapertussis (test code = 72135) Bordetella pertussis Not Detected Not Detected (test code = 4854) Chlamydiophila Not Detected Not Detected pneumoniae (test code = 5139) Mycoplasma pneumoniae Not Detected Not Detected (test code = 6203) PAIGE (test code = PAIGE) The [employer] RP2.1 is a real-time, nested multiplexed polymerase chain reaction test designed to simultaneously identify nucleic acids from 22 different viruses and bacteria associated with respiratory tract infection, including SARS-CoV-2, from a single nasopharyngeal swab (EMBEDDED PROCESSOR) specimen obtained from individuals suspected of respiratory [...] that may not be detected by an EMBEDDED PROCESSOR specimen. Internal controls are used to monitor [...] and high-complexity tests. The Microbiology Laboratory at [facility], CLIA Accreditation #[id number] and CAP Accreditation #[id number], verified the performance characteristics of this assay. Microbiology Laboratory at [facility] performs the assay using the Lan[employer] System. Lab Interpretation Abnormal (test code = 38976-1) [facility] Mgvbdlavdz0107-84-37 13:32:30 Test Item Value Reference Range Interpretation Comments POC Crea (test 0.6 mg/dL 0.6-1.3 Medications, code = 11172-2) especially h ydroxyurea or supplements, such as [...] sens itive biosensors on a silicon chip at are configured to p erform specific tests. The microfabricated sensors measure analyte concent ration by an electroch emical assay. POC eGFR-AA (test 121 See_Comment Normal eGF R >= 60 code = 29844-9) mL/min/1.73 m2 The eGFR is calcula lakhwinder [...] Normal eG FR >= 60 code = 33609-5) mL/min/1.73 m2 The eGFR is calcula lakhwinder using the CKD-E PI equation. The e GFR declines with a ge. eGFR <60 mL/min /1.73 m2 is considere d as "decreased" Thi s equation should only be used for pat ients 18 and older. According to th e National Kidney Foundation's Ki dney Disease [...] Yes (test code = 6672) Performing Lab [facility] (test code = [facility] [address]) Clinical Lab, [address] [place] [address]; Occupational Therapy Assistant: Aletha Arciniega MD [facility] Bgefmcpuwu2047-89-39 13:32:30 Test Item Value Reference Range Interpretation Comments POC Crea (test 0.6 mg/dL 0.6-1.3 Medications, code = 40475-7) especially h ydroxyurea or supplements, such as [...] Normal eGF R >= 60 code = 80643-0) mL/min/1.73 m2 The eGFR is calcula lakhwinder using the CKD-E PI equation. The e GFR declines with a ge. eGFR <60 mL/min /1.73 m2 is considere d as "decreased" Thi s equation should only be used for pat ients 18 and older. According to [facility] National [facility]ney Foundation's dn Disease Outcome Quality Initiat ceci (KDOQI) classif [...] Normal eG FR >= 60 code = 06267-8) mL/min/1.73 m2 The eGFR is calcula lakhwinder using the CKD-E PI equation. The e GFR declines with a ge. eGFR <60 mL/min /1.73 m2 is considere d as "decreased" Thi s equation should only be used for pat ients 18 and older. According to [facility] National Kidney Foundation's dney Disease Outcome Quality Initiat ceci (KDOQI) [...] Yes (test code = 6672) Performing Lab [facility] (test code = [facility] [place] [address]) Clinical Lab, [address] [place] [address], [place], [place] [address]; Occupational Therapy Assistant: Aletha Arciniega MD [facility] Xermjnibxq9856-94-77 13:32:30 Test Item Value Reference Range Interpretation Comments POC Crea (test 0.6 mg/dL 0.6-1.3 Medications, code = 15389-1) especially h ydroxyurea or supplements, such as [...] of various anal ytes in whole blood. Th e device uses a s nuvia disposable [...] Normal eGF R >= 60 code = 77003-0) mL/min/1.73 m2 The eGFR is calcula lakhwinder using the CKD-E PI equation. The e GFR declines with a ge. eGFR <60 mL/min /1.73 m2 is considere d as "decreased" Thi s equation should only be used for pat ients 18 and older. According to th e National Kidney Foundation's dney Disease Outcome Quality Initiat ceci (KDOQI) [...] <15 (or dialysis) [Auto mated message] The [employer] stem which generated this result transmit lakhwinder reference range : >=60 mL/min/1.73 m2. The reference range was not used to int erpret this result as normal/abnormal . POC eGFR-JCARLOS (test 105 See_Comment Normal eG FR >= 60 code = 70469-9) mL/min/1.73 m2 The eGFR is calcula lakhwinder using the CKD-E PI equation. The e GFR declines with a ge. eGFR <60 mL/min /1.73 m2 is considere d as "decreased" Thi s equation should only be used for pat ients 18 and older. According to th e [employer] Kid[employer]'s dney Disease Outcome Quality Initiat ceci (KDOQI) [...] <15 (or dialysis) [Auto mated message] The [employer] stem which generated this result transmit lakhwinder reference range : >=60 mL/min/1.73 m2. The reference range was not used to int erpret this result as normal/abnormal . POC Clean Dev Yes (test code = 6672) Performing Lab [facility] (test code = [facility] [address]) Clinical Lab, [address] [place] [address], [place], [place] [address]; Occupational Therapy Assistant: Aletha Arciniega MD [facility] [place]
--- NOTE | 2022-04-23 11:52 | RAD REPORT ---
EXAM DESCRIPTION: RAD - Chest Single View - 04/23/2022 11:38 am CLINICAL HISTORY: COPD COMPARISON: Portable 04/01/2022 TECHNIQUE: AP portable chest image was obtained 04/23/2022 11:38 am . FINDINGS: Lungs are hyperexpanded with flattened diaphragm. Focal pleural and parenchymal scarring c hanges are present in the lateral apex on the right. Interstitial markings are more pronounced in the medial left base compared to the early March examination. Developing left base pneumonia is suspec lakhwinder. No consolidation or cavitation in the left base. Heart and vasculature are normal. No measurable pleural effusion and no pneumothorax. No acute bony abnormality seen. No acute aortic findings suspected. IMPRESSION: Small left lung base pneumonia superimposed on prominent COPD.
--- NOTE | 2022-04-23 12:08 | EDPHYS ---
Physician Documentation [facility] Name: Chato Moreno IV Age: 66 yrs Sex: Male : 1955 Arrival Date: 04/23/2022 Time: 11:19 Bed 6 Private MD: ED Physician Beth Nicolas HPI: 04/23 11:53 This 66 yrs old Male presents to ER via EMS with complaints of Shortness Of Breath. sp3 11:53 66-year-old male with a history of COPD, prior lung cancer, recent pneumonia presents sp3 to the ED for recurrent shortness of breath and cough without fever. Patient also states he has mild chest pain. He denies headache, fever, back pain, abdominal pain, nausea, vomiting, diarrhea, rash, known sick contacts, recent travel history, any other ROS at this time. Compliance on his medications. Per EMS, social situation at home is not ideal with interpersonal relationships.. Historical: - Allergies: 11:28 No Known Allergies; vg1 - Home Meds: 11:28 memantine oral [Active]; midodrine oral [Active]; Seroquel Oral [Active]; Megestrol vg1 Acetate Oral [Active]; - PMHx: 11:28 COPD; Lung Cancer; Emphysema; Pneumonia; vg1 - Immunization history:: Client reports receiving the 2nd dose of the Covid vaccine. - Social history:: Smoking status: Patient/guardian denies using tobacco, the patient reports quitting approximately 2 years ago. ROS: 11:59 Constitutional: Negative for fever, chills, and weight loss, Eyes: Negative for injury, sp3 pain, redness, and discharge, ENT: Negative for injury, pain, and discharge, Neck: Negative for injury, pain, and swelling, Abdomen/GI: Negative for abdominal pain, nausea, vomiting, diarrhea, and constipation, Back: Negative for injury and pain, MS/Extremity: Negative for injury and deformity, Skin: Negative for injury, rash, and discoloration, Neuro: Negative for headache, weakness, numbness, tingling, and seizure, Psych: Negative for depression, anxiety, suicide ideation, homicidal ideation, and hallucinations, Allergy/Immunology: Negative for hives, rash, and allergies, Endocrine: Negative for neck swelling, polydipsia, polyuria, polyphagia, and marked weight changes, Hematologic/Lymphatic: Negative for swollen nodes, abnormal bleeding, and unusual bruising. 11:59 All other systems are negative. Exam: 12:01 Head/Face: Normocephalic, atraumatic. Eyes: Pupils equal round and reactive to light, sp3 extra-ocular motions intact. Lids and lashes normal. Conjunctiva and sclera are non-icteric and not injected. Cornea within normal limits. Periorbital areas with no swelling, redness, or edema. ENT: Nares patent. No nasal discharge, no septal abnormalities noted. External auditory canals are clear. Oropharynx with no redness, swelling, or masses, exudates, or evidence of obstruction, uvula midline. Mucous membranes moist. Neck: Trachea midline, no thyromegaly or masses palpated, and no cervical lymphadenopathy. Supple, full range of motion without nuchal rigidity, or vertebral point tenderness. No Meningismus. Chest/axilla: Normal chest wall appearance and motion. Nontender with no deformity. No lesions are appreciated. Abdomen/GI: Soft, non-tender, with normal bowel sounds. No distension or tympany. No guarding or rebound. No evidence of tenderness throughout. Back: No spinal tenderness. No costovertebral tenderness. Full range of motion. Skin: Warm, dry with normal turgor. Normal color with no rashes, no lesions, and no evidence of cellulitis. MS/ Extremity: Pulses equal, no cyanosis. Neurovascular intact. Full, normal range of motion. Neuro: Awake and alert, GCS 15, oriented to person, place, time, and situation. Cranial nerves II-XII grossly intact. Motor strength 5/5 in all extremities. Sensory grossly intact. Cerebellar exam normal. Normal gait. Psych: Awake, alert, with orientation to person, place and time. Behavior, mood, and affect are within normal limits. 12:01 Cardiovascular: Rate: tachycardic, Pulses: 12:01 Respiratory: Respiratory rate: Tachypneic 20-24 coarse breath sounds diffuse. 12:10 ECG was reviewed by the Attending Physician. EKG demonstrates normal sinus rhythm at 98 sp3 bpm with normal intervals, normal QRS, normal axis, normal ST/T-segment's with occasional ectopy. Vital Signs: 11:21 BP 128 / 72; Pulse 106; Resp 23; Temp 97.7(O); Pulse Ox 97% on 2 lpm NC; Weight 52.62 vg1 kg; Height 5 ft. 7 in. (170.18 cm); Pain 10/10; 15:00 BP 115 / 77; Pulse 98; Resp 22; Pulse Ox 98% on 2 lpm NC; vg1 16:00 BP 101 / 67; Pulse 91; Resp 24; Pulse Ox 98% on 2 lpm NC; vg1 20:52 BP 103 / 61; Pulse 98; Resp 16; Pulse Ox 98% on 1 lpm NC; ll3 11:21 Body Mass Index 18.17 (52.62 kg, 170.18 cm) vg1 MDM: 12:01 Data reviewed: vital signs, nurses notes, EMS record. sp3 12:05 Data reviewed: vital signs, nurses notes, EMS record. ED course: 66-year-old male with sp3 multiple medical problems now with COPD and pneumonia. We will continue with nebulizers and antibiotics sees will hold steroids secondary to no wheezing). Blood cultures are pending. Patient meets admission criteria with respiratory rate and respiratory difficulty or hospitalizations.. 12:08 Patient medically screened. sp3 04/23 11:20 Order name: Basic Metabolic Panel; Complete Time: 17:38 sp3 04/23 11:20 Order name: CBC with Diff; Complete Time: 17:38 sp3 04/23 11:20 Order name: Magnesium; Complete Time: 17:38 sp3 04/23 11:20 Order name: NT PRO-BNP; Complete Time: 17:38 sp3 04/23 11:20 Order name: PT-INR; Complete Time: 17:38 sp3 04/23 11:20 Order name: Troponin HS; Complete Time: 17:38 sp3 04/23 11:20 Order name: XRAY Chest (1 view); Complete Time: 12:03 sp3 04/23 12:03 Order name: Blood Culture Adult (2) sp3 04/23 12:05 Order name: COVID-19 SARS RT PCR (Document "Date of Onset" if Symptomatic); Complete bd Time: 17:38 04/23 12:33 Order name: Manual Differential; Complete Time: 17:38 EDMS 04/23 19:27 Order name: Vancomycin Level Trough; Complete Time: 23:19 EDMS 04/23 19:36 Order name: Flu wm 04/23 20:31 Order name: Influenza Screen (A ; Complete Time: 23:19 EDMS 04/23 11:20 Order name: EKG; Complete Time: 11:21 sp3 04/23 11:20 Order name: Cardiac monitoring; Complete Time: 11:57 sp3 04/23 11:20 Order name: EKG - Nurse/Tech; Complete Time: 11:57 sp3 04/23 11:20 Order name: IV Saline Lock; Complete Time: 12:08 sp3 04/23 11:20 Order name: Labs collected and sent; Complete Time: 12:08 sp3 04/23 11:20 Order name: O2 Per Protocol; Complete Time: 11:36 sp3 04/23 11:20 Order name: O2 Sat Monitoring; Complete Time: 11:36 sp3 04/23 13:28 Order name: Heart Healthy EDMS Administered Medications: 13:19 Drug: DuoNeb (albuterol 2.5 mg, ipratropium 0.5 mg) (3:1) (2.5 mg - 0.5 mg) 3 ml Route: vg1 Nebulizer; 16:29 Follow up: Response: No adverse reaction; Marked relief of symptoms vg1 13:24 Drug: Cefepime 2 grams Route: IVPB; Rate: 200 ml/hr; Infused Over: 30 mins; Site: right vg1 forearm; 14:00 Follow up: IV Status: Completed infusion vg1 14:35 Drug: morphine 2 mg Route: IVP; Infused Over: 4 mins; Site: right forearm; jd3 16:29 Follow up: Response: No adverse reaction; Pain is decreased vg1 Disposition Summary: 04/23/22 12:08 Hospitalization Ordered Hospitalization Status: Inpatient Admission sp3 Location: Telemetry/[facility] (Inpatient) sp3 Condition: Stable sp3 Problem: an acute exacerbation sp3 Symptoms: have worsened sp3 Bed/Room Type: Standard sp3 Provider: Favian Alexandre(04/23/22 15:47) sp3 Room Assignment: [facility](04/23/22 19:01) Diagnosis - Pneumonia, COPD Exacerbation sp3 Forms: - Medication Reconciliation Form sp3 - SBAR form sp3 Signatures: Dispatcher [employer] EDMariia Gallardo RN RN ss Tejinder Quiñonez, AUTOMOTIVE FINANCE MANAGER-C AUTOMOTIVE FINANCE MANAGER-Shivani1 Lenny Magdaleno RN RN jAlina Lerner RN RN vg1 Beth Nicolas MD MD sp3 Corrections: (The following items were deleted from the chart) 11 11:28 PSHx: Pneumonia; vg1 vg1 15:47 12:08 Jordy Metz sp3 sp3 19:01 12:08 sp3 ss
--- NOTE | 2022-04-23 12:08 | ER ---
Nurse's Notes [facility] Name: Chato Moreno IV Age: 66 yrs Sex: Male : 1955 Arrival Date: 04/23/2022 Time: 11:19 Bed 6 Private MD: Diagnosis: Pneumonia, COPD Exacerbation Presentation: 04/23 11:21 Chief complaint: Patient states: toned out for SOB/difficulty breathing. Stated about vg1 two weeks ago was seen for pneumonia. Uses O2 at home, upon arrival to home pt was 94% RA, placed pt on 2L NC was at 97%. Pt also c/o CP. Coronavirus screen: Vaccine status: Patient reports receiving the 2nd dose of the covid vaccine. Client denies travel out of the [place] in the last 14 days. Ebola Screen: Patient negative for fever greater than or equal to 101.5 degrees Fahrenheit, and additional compatible Ebola Virus Disease symptoms Patient denies exposure to infectious person. Initial Sepsis Screen:. Initial Sepsis Screen: Does the patient meet any 2 criteria? RR > 20 per min. HR > 90 bpm. Yes Does the patient have a suspected source of infection? No. Patient's initial sepsis screen is negative. If YES to both, name of provider notified: Beth Nicolas MD. Risk Assessment: Do you want to hurt yourself or someone else? Patient reports no desire to harm self or others. Onset of symptoms was April 23, 2022. Care prior to arrival: Medication(s) given: Solu Medrol 125 mg IVP IV initiated. 20 GA, in the right antecubital area. 11:21 Acuity: STEWART 2 vg1 11:21 Method Of Arrival: EMS: [place] [address] Triage Assessment: 11:28 General: Appears uncomfortable, Behavior is cooperative. Pain: Complains of pain in vg1 chest Pain currently is 10 out of 10 on a pain scale. Pain began 1 day ago. EENT: No signs and/or symptoms were reported regarding the EENT system. Neuro: Level of Consciousness is awake, alert, obeys commands, Oriented to person, place, time, situation. Cardiovascular: Patient's skin is warm and dry. Chest pain began 30 minutes prior to arrival. Respiratory: Reports shortness of breath at rest on exertion cough that is productive, pain with cough Onset: The symptoms/episode began/occurred two weeks, the patient has moderate shortness of breath. GI: No signs and/or symptoms were reported involving the gastrointestinal system. : No signs and/or symptoms were reported regarding the genitourinary system. Derm: Skin is pink, warm \\T\\ dry. Musculoskeletal: Circulation, motion, and sensation intact. Historical: - Allergies: 11:28 No Known Allergies; vg1 - Home Meds: 11:28 memantine oral [Active]; midodrine oral [Active]; Seroquel Oral [Active]; Megestrol vg1 Acetate Oral [Active]; - PMHx: 11:28 COPD; Lung Cancer; Emphysema; Pneumonia; vg1 - Immunization history:: Client reports receiving the 2nd dose of the Covid vaccine. - Social history:: Smoking status: Patient/guardian denies using tobacco, the patient reports quitting approximately 2 years ago. Screenin:32 Abuse screen: Denies threats or abuse. Nutritional screening: No deficits noted. vg1 Tuberculosis screening: No symptoms or risk factors identified. Fall Risk No fall in past 12 months (0 pts). No secondary diagnosis (0 pts). IV access (20 points). Ambulatory Aid- None/Bed Rest/Nurse Assist (0 pts). Gait- Normal/Bed Rest/Wheelchair (0 pts) Mental Status- Oriented to own ability (0 pts). Total Ashton Fall Scale indicates No Risk (0-24 pts). Assessment: 11:32 Reassessment: SEE TRIAGE. Cardiovascular: Rhythm is sinus tachycardia. Respiratory: vg1 Airway is patent Respiratory effort is even, unlabored, Respiratory pattern is tachypnea Breath sounds are diminished bilaterally. 12:30 Reassessment: Patient appears in no apparent distress at this time. No changes from vg1 previously documented assessment. Patient and/or family updated on plan of care and expected duration. Pain level reassessed. Patient is alert, oriented x 3, equal unlabored respirations, skin warm/dry/pink. 12:35 Reassessment: two attempts of receiving blood for blood cultures; contacted inside lab vg1 for culture withdraws; charge nurse aware. 12:40 Reassessment: lab at bedside. vg1 13:30 Reassessment: Patient appears in no apparent distress at this time. Patient and/or vg1 family updated on plan of care and expected duration. Pain level reassessed. Patient is alert, oriented x 3, equal unlabored respirations, skin warm/dry/pink. 14:30 Reassessment: Patient appears in no apparent distress at this time. Patient and/or vg1 family updated on plan of care and expected duration. Pain level reassessed. Resting with eyes closed. 15:30 Reassessment: Patient appears in no apparent distress at this time. Patient and/or vg1 family updated on plan of care and expected duration. Pain level reassessed. Patient is alert, oriented x 3, equal unlabored respirations, skin warm/dry/pink. pt requesting something to eat; pt given a sandwich and water. 16:30 Reassessment: Patient appears in no apparent distress at this time. Pt resting with vg1 eyes closed. Vital Signs: 11:21 BP 128 / 72; Pulse 106; Resp 23; Temp 97.7(O); Pulse Ox 97% on 2 lpm NC; Weight 52.62 vg1 kg; Height 5 ft. 7 in. (170.18 cm); Pain 10/10; 15:00 BP 115 / 77; Pulse 98; Resp 22; Pulse Ox 98% on 2 lpm NC; vg1 16:00 BP 101 / 67; Pulse 91; Resp 24; Pulse Ox 98% on 2 lpm NC; vg1 20:52 BP 103 / 61; Pulse 98; Resp 16; Pulse Ox 98% on 1 lpm NC; ll3 11:21 Body Mass Index 18.17 (52.62 kg, 170.18 cm) vg1 ED Course: 11:19 Patient arrived in ED. am2 11:19 Beth Nicolas MD is Attending Physician. sp3 11:21 Alina Vieira, ELLA is Primary Nurse. vg1 11:28 Triage completed. vg1 11:28 Arm band placed on. vg1 11:32 Patient has correct armband on for positive identification. Call light in reach. Side vg1 rails up X2. Client placed on continuous cardiac and pulse oximetry monitoring. NIBP monitoring applied. 11:39 XRAY Chest (1 view) In Process Unspecified. EDMS 12:07 Jordy Metz MD is Hospitalizing Provider. sp3 12:15 Inserted saline lock: 22 gauge in right forearm, using aseptic technique. vg1 12:35 Missed attempt(s): 22 gauge in right wrist. Bleeding controlled, band aid applied, jd3 catheter tip intact. 12:52 COVID-19 SARS RT PCR (Document "Date of Onset" if Symptomatic) Sent. vg1 15:47 Favian Alexandre MD is Hospitalizing Provider. sp3 19:51 Flu Sent. oe 21:10 No provider procedures requiring assistance completed. Patient admitted, IV remains in ll3 place. Administered Medications: 13:19 Drug: DuoNeb (albuterol 2.5 mg, ipratropium 0.5 mg) (3:1) (2.5 mg - 0.5 mg) 3 ml Route: vg1 Nebulizer; 16:29 Follow up: Response: No adverse reaction; Marked relief of symptoms vg1 13:24 Drug: Cefepime 2 grams Route: IVPB; Rate: 200 ml/hr; Infused Over: 30 mins; Site: right vg1 forearm; 14:00 Follow up: IV Status: Completed infusion vg1 14:35 Drug: morphine 2 mg Route: IVP; Infused Over: 4 mins; Site: right forearm; jd3 16:29 Follow up: Response: No adverse reaction; Pain is decreased vg1 Medication: 11:32 VIS not applicable for this client. vg1 Outcome: 12:08 Decision to Hospitalize by Provider. sp3 21:10 Admitted to Tele accompanied by tech, via wheelchair, room 408, with oxygen, with ll3 chart, Report called to ELLA Lopez 21:10 Condition: stable 21:10 Discharge instructions given to patient, Instructed on the need for admit, Demonstrated understanding of instructions. 21:24 Patient left the ED. ll3 Signatures: Dispatcher [employer] EDMS Shaq Azul Amanda am2 Lenny Magdaleno RN RN jd3 Alina Vieira RN RN vg1 Beth Nicolas MD MD sp3 Tanvir Morris RN RN ll3 Corrections: (The following items were deleted from the chart) 11:30 11:28 PSHx: Pneumonia; vg1 vg1
[2022-04-23 12:29] LABS: Absolute Lymphocytes (CBC) 2.3 K/uL (0.7-4.9); Hematocrit 35.9 % (39.6-49.0); Lymphocytes % 11.6 % (15.3-44.8); MCV 87.4 fL (80-100); MPV 6.9 fL (7.6-11.3); RBC Red Blood Cell Count 4.11 M/uL (4.33-5.43)
[2022-04-23 12:31] LABS: Protime INR 1.04
[2022-04-23 12:46] LABS: Magnesium 1.8 mg/dL (1.8-2.4); Potassium 3.5 mmol/L (3.5-5.1); Troponin High Sensitivity 5.2 pg/mL (<58.9)
[2022-04-23] MEDS ORDERED: IPRATROPIUM BROM 0.5MG/2.5ML ONE ×2 (13:17→21:28)
[2022-04-23] MEDS ORDERED: NA CHLORIDE 0.9% 100 ML IV ONE (13:17)
[2022-04-23] MEDS ORDERED: ALBUTEROL 2.5 MG/3 ML NEB SOL ONE ×2 (13:17→21:28)
[2022-04-23] MEDS ORDERED: CEFEPIME 2 GM VIAL ONE (13:17)
[2022-04-23 13:39] LABS: Anisocytosis 1+; Blood Morphology Comment NOTED (NOT SEEN); Platelet Estimate ADEQ; Polychromasia SLIGHT
[2022-04-23] MEDS ORDERED: MORPHINE 2 MG/ML SYR ONE (14:29)
[2022-04-23] MEDS ORDERED: ACETAMINOPHEN 325 MG TABLET PO PRN (16:17)
[2022-04-23] MEDS ORDERED: ONDANSETRON 4 MG/2 ML VIAL IV PRN (16:17)
--- NOTE | 2022-04-23 16:36 | P.HP ---
Certification for Inpatient Patient admitted to: Inpatient With expected LOS: >2 Midnights Patient will require the following post-hospital care: None Practitioner: I am a practitioner with admitting privileges, knowledge of patient current condition, hospital course, and medical plan of care. Services: Services provided to patient in accordance with Admission requirements found in Title 42 Section 412.3 of the Code of Federal Regulations Patient History Date of Service: 04/23/22 Reason for admission: SOB History of Present Illness: Patient is a 66-year-old male with a past medical history significant for recurrent pneumonia, lung cancer, COPD who presents with complaint of shortness of breath onset this morning. Patient reported associated signs and symptoms of cough, chest tightness, weakness and fatigue. Patient denies any other signs and symptoms. Symptoms are aggravated or relieved by nothing. Patient decided to present to the hospital due to worsening symptoms. Allergies No Known Allergies Allergy (Verified 03/07/22 18:33) Home Medications: Megestrol [Megace*] 40 mg PO BID 03/07/22 Midodrine HCl [Proamatine*] 5 mg PO BID 03/07/22 Quetiapine [Seroquel*] 75 mg PO BEDTIME 03/07/22 Memantine HCl [Namenda*] 10 mg PO BID 04/23/22 - Past Medical/Surgical History -: Chronic pain -: Anorexia -: COPD -: History of lung cancer Past Surgical History: Reviewed- Non-Contributory - Family History Sister -: Cancer - Social History Smoking Status: Former smoker Alcohol use: No CD- Drugs: No Caffeine use: No Place of Residence: Home Review of Systems General: Weakness, Other (Fatiguie) Eyes: Unremarkable ENT: Unremarkable Respiratory: Cough, Shortness of Breath, SOB with Excertion, Other (Chest tightness ) Cardiovascular: Unremarkable Gastrointestinal: Unremarkable Genitourinary: Unremarkable Musculoskeletal: Back Pain Integumentary: Unremarkable Neurological: Unremarkable Lymphatics: Unremarkable Physical Examination - Physical Exam General: Alert, Oriented x3, Cooperative, Moderate distress HEENT: Atraumatic, Normocephalic, PERRLA, EOMI Neck: Supple, 2+ carotid pulse no bruit, Without JVD or thyroid abnormality Respiratory: Diminished Cardiovascular: Normal pulses, Regular rate/rhythm Capillary refill: <2 Seconds Gastrointestinal: Normal bowel sounds, Soft and benign Musculoskeletal: No clubbing, No swelling, No contractures Integumentary: No rashes, No breakdown, No significant lesion Neurological: Normal speech, Normal tone, Normal affect Lymphatics: No axilla or inguinal lymphadenopathy - Studies Laboratory Data (last 24 hrs) 04/23/22 12:00: PT 11.4, INR 1.04 04/23/22 12:00: WBC 20.10 H*, Hgb 11.6 L, Hct 35.9 L, Plt Count 392 04/23/22 12:00: Sodium 141, Potassium 3.5, BUN 8, Creatinine 0.60, Glucose 105, Magnesium 1.8 Assessment and Plan - Plan --Recurrent pneumonia. Patient placed on antibiotics, neb treatment with albuterol\Atrovent and O2 therapy. Blood cultures and sputum cultures pending. --Acute on chronic COPD exacerbation. Continue current treatment regimen. --Sepsis POA\leukocytosis. Blood cultures pending. Continue antibiotics. --Anemia of chronic disease. H&H stable. We will continue to monitor hemoglobin and transfuse if less than 7.0. --Elevated D-dimer. CT PE protocol pending. Continue supportive care --Hx of Lung. Status unknown. Continue supportive care. --GERD. Continue protonix --Anorexia. Continue home medication --Chronic pain syndrome. Will management pain with current pain medication regimen. --DVT prophylaxis with heparin subQ. Discharge Plan: Home Plan to discharge in: Greater than 2 days - Advance Directives Does patient have a Living Will: No Does patient have a Durable POA for Healthcare: No - Code Status/Comfort Care Code Status Assessed: Yes Physician Review: Patient Assessed, Agree with Above Assessment and Plan Critical Care: No
[2022-04-23] MEDS ORDERED: VANCOMYCIN 1.25 GM in NA CHLORIDE 0.9% 250 ML IVPB ONE (17:00)
[2022-04-23] MEDS ORDERED: HEPARIN 5000 UNIT/ML 1 ML VIAL ONE (17:56)
[2022-04-23] MEDS: HEPARIN 5000 UNIT/ML 1 ML VIAL SQ SCH (18:00)
[2022-04-23] MEDS: ALBUTEROL 2.5 MG/3 ML NEB SOL NEB SCH (20:00)
[2022-04-23] MEDS: IPRATROPIUM BROM 0.5MG/2.5ML NEB SCH (20:00)
[2022-04-23] MEDS: CEFEPIME 1 GM in NA CHLORIDE 0.9% 100 ML IV SCH (21:34)
[2022-04-23] MEDS: QUETIAPINE 25 MG TAB PO SCH (22:55)
[2022-04-23] MEDS ORDERED: NA CHLORIDE 0.9% 1,000 ML IV ONE (23:00)
[2022-04-23] MEDS ORDERED: SODIUM CHL 0.9% 1000 ML BAG IV ONE (23:30)
--- NOTE | 2022-04-23 23:40 | P.INFCA ---
Sepsis Focused Assessment - Focused Assessment Complete? Sepsis Focused Assessment Completed?: Yes - Sepsis Screen Result Septic Shock: Positive - Evaluation Current stage of sepsis: Septic shock - Vital Signs Reviewed: Yes Temperature: 97.6 F Heart rate: 98 Blood Pressure: 111/66 Respiratory Rate: 18 O2 Sat by Pulse Oximetry: 100 - Examination Date exam was performed: 04/23/22 Time exam was performed: 23:38 Heart: Regular rate/rhythm Lungs: Clear bilaterally Peripheral pulses: 3+ Normal Peripheral pulse location: Radial Capillary refill: <2 Seconds Skin examination: Normal turgor Comments: elev. lactate, given 30cc/kg ivf bolus, repeat cultures obtained.
[2022-04-24] MEDS: HEPARIN 5000 UNIT/ML 1 ML VIAL SQ SCH ×3 (00:25→18:01)
[2022-04-24] MEDS: IPRATROPIUM BROM 0.5MG/2.5ML NEB SCH ×4 (01:20→20:20)
[2022-04-24] MEDS: ALBUTEROL 2.5 MG/3 ML NEB SOL NEB SCH ×4 (01:20→20:20)
[2022-04-24 01:28] VITALS: BMI 18.1
[2022-04-24 01:32] LABS: Absolute Lymphocytes (CBC) 1.6 K/uL (0.7-4.9); Lymphocytes % 9.2 % (15.3-44.8); MCV 87.2 fL (80-100); MPV 6.5 fL (7.6-11.3); RBC Red Blood Cell Count 3.56 M/uL (4.33-5.43)
[2022-04-24 01:47] LABS: Potassium 3.7 mmol/L (3.5-5.1)
--- NOTE | 2022-04-24 03:16 | P.PN ---
Date of Service: 04/24/22 Sepsis follow up assessment complete, lactate improved now less than 4 after fluid bolus, no hypotension noted.
[2022-04-24] MEDS ORDERED: SODIUM CHLORIDE 0.9% 10ML INJ IV PRN (05:54)
[2022-04-24 05:57] LABS: Phosphorus 2.1 mg/dL (2.5-4.9)
[2022-04-24] MEDS: VANCOMYCIN 1 GM in NA CHLORIDE 0.9% 250 ML IVPB SCH ×2 (06:21→18:02)
[2022-04-24] MEDS: CEFEPIME 1 GM in NA CHLORIDE 0.9% 100 ML IV SCH ×2 (08:36→21:19)
[2022-04-24] MEDS: ASPIRIN EC 81 MG TAB PO SCH (08:39)
[2022-04-24] MEDS: POTASS/SODIUM PHOSPHATE 1 PKT POWD.PACK PO SCH ×3 (08:40→14:32)
[2022-04-24] MEDS ORDERED: PANTOPRAZOLE 40 MG INJ IVP SCH (09:00)
[2022-04-24] MEDS ORDERED: POTASSIUM CL SA 10 MEQ TAB PO ONE (09:00)
[2022-04-24] MEDS ORDERED: MAGNESIUM SULFATE 1 gm IVPB 1 GM/100 ML BAG IV ONE (09:00)
--- NOTE | 2022-04-24 12:47 | RAD REPORT ---
EXAM DESCRIPTION: CT - Chest For Pe Angio - 04/24/2022 4:09 am CLINICAL HISTORY: 66 years Male Elevated DDimer. TECHNIQUE: Following the administration of intravenous contrast, multiple high-resolution axial imag es of the chest were performed followed by sagittal and coronal reconstructed images. Coronal and sag ittal MIP images were also performed. Coronal oblique images were obtained as well. The CT study is p erformed according to ALARA (as low as reasonably achievable) or ALARA/IMAGE GENTLY, with automatic a djustment of mA and/or kV according to patient size. Performed on: 04/24/2022 at 4:09 AM COMPARISON: CT chest angiography performed on 03/23/[address] chest report from 01/21/2020. These im ages were not available for review. FINDINGS: There is satisfactory visualization and contrast opacification of pulmonary arteries. No definite intra-arterial filling defects are identified to suggest acute or chronic pulmonary embolis m. The thoracic aorta is normal in caliber and contour without evidence of aneurysm or dissection. The lungs are hyperinflated. There are diffuse centrilobular emphysematous changes throughout the barbie gs. There is chronic pleural parenchymal scarring in the right lung apex, anterior lingula and left l ower lobe. There is a new 1.8 x 1.0 cm noncalcified oval soft tissue mass in the right lower lobe (se alejandra [id number], image 58) with surrounding reticular thickening. Although this may be due to a new infectio us or inflammatory process in the right lower lobe, a neoplastic process cannot be entirely excluded at this time. There is improving aeration involving portions of the left upper lobe and lingula when compared to the prior study. There are no pleural effusions. There is no pneumothorax. The central ai rways are patent. The heart is normal in size. There is no pericardial effusion. There is no reflux of contrast into th e hepatic veins to suggest right heart strain.The RV/LV ratio is within normal limits. There is no evidence of hilar, mediastinal or axillary lymphadenopathy. No acute osseous abnormality is identified. The visualized upper abdominal structures are unremarkable. IMPRESSION: 1. No evidence of acute or chronic pulmonary embolism, aortic aneurysm or aortic disse ction. 2. Diffuse centrilobular emphysematous changes throughout the lungs with chronic pleural parenchyma l scarring in the right lung apex, anterior lingula and left lower lobe. 3. There is a new 1.8 x 1.0 cm noncalcified oval soft tissue mass in the right lower lobe with surrou nding reticular thickening. Although this may be due to a new infectious or inflammatory process in t he right lower lobe, a neoplastic process cannot be entirely excluded at this time. Consider a non- contrast Chest CT at 3 months, a PET/CT, or tissue sampling. These guidelines do not apply to immunoc ompromised patients and patients with cancer. Follow up in patients with significant comorbidities as clinically warranted. For lung cancer screening, adhere to Lung-RADS guidelines. Reference: Radiolog y. 2017; 284(1):228-43. 4. Improved aeration involving portions of the left upper lobe and lingula when compared to the prior study. Electronically signed by: Laura Wright DO 04/24/2022 4:44 AM CDT Due to temporary technical issues with the PACS/Fluency reporting system, reports are being signed by the in house radiologists without review as a courtesy to insure prompt reporting. The interpreting radiologist is fully responsible for the content of the report.
--- NOTE | 2022-04-24 13:08 | EKG ---
Test Date: 2022-04-23 Test Time: 11:43:02 Shipping Support: MEASUREMENT RESULTS: Intervals: Rate: 98 SC: 140 QRSD: 78 QT: 356 QTc: 454 [place]: P: 64 SC: 140 QRS: 34 T: 61 INTERPRETIVE STATEMENTS: Sinus rhythm with occasional premature ventricular complexes Otherwise normal ECG Compared to ECG 03/28/2022 07:08:55 Ventricular premature complex(es) now present Electronically Signed On 04-24-22 13:06:56 CDT by Larry Aly
--- NOTE | 2022-04-24 17:58 | P.PN ---
Subjective Date of Service: 04/24/22 Chief Complaint: SOB This morning, he reports that his shortness of breath has significantly improved. He is currently on 2 L nasal cannula. He denies any chest pain or palpitations. He met septic shock criteria overnight and sepsis bundle was initiated. Review of Systems 10-point ROS is otherwise unremarkable Respiratory: Cough, Shortness of Breath Physical Examination - Vital Signs Temperature: 98.6 F Blood Pressure: 98/49 Pulse: 91 Respirations: 18 Pulse Ox (%): 98 - Physical Exam General: Alert, In no apparent distress, Oriented x3 HEENT: Atraumatic, PERRLA, Mucous membr. moist/pink, EOMI, Sclerae nonicteric Neck: Supple, JVD not distended Respiratory: Diminished, Expiratory wheezes, Rhonchi/gurgles Cardiovascular: No edema, Regular rate/rhythm, Normal S1 S2, No gallops, No rubs, No murmurs Capillary refill: <2 Seconds Gastrointestinal: Normal bowel sounds, Soft and benign, Non-distended, No tenderness, No rebound, No guarding Musculoskeletal: No clubbing Integumentary: No rashes Neurological: Normal strength at 5/5 x4 extr, Cranial nerves 3-12 intact, Normal affect Assessment And Plan - Plan # Suspected Septic Shock likely secondary to Left Lower Lobe Community-Acquired Pneumonia He met sepsis criteria based on HR > 90 bpm, RR > 20 breaths/min, and WBC > 12,000, and the suspected source is pneumonia. Severe sepsis is suspected due to concern for tissue hypoperfusion/organ dysfunction based on hypotension (SBP < 90, MAP < 65) and lactic acid > 2 mmol/L. Septic shock is suspected due to initial lactate > 4 mmol/L. Plan: - Sepsis order set was initiated - Lactate trend: 6.7 -> 3.7 - Chest x-ray = "small left lung base pneumonia superimposed on prominent COPD" - Procalcitonin = 0.19 - Blood cultures drawn before antibiotics were given - Broad spectrum antibiotics started: - In regards to fluids: - 30 mL/kg of IV fluids was given based on patient's actual body weight - Sepsis reassessment completed by Tejinder Quiñonez NP at 03:14 AM on 04/24/2022 # Acute Chronic Obstructive Pulmonary Disease Exacerbation - Consulted Pulmonary Medicine - recommendations appreciated - DuoNebs q4-6hr - Methylprednisolone 40 mg IV q12hr - Consulted Respiratory Therapy - Supplemental oxygen to maintain SpO2 > 92% - Assess inhaler technique one improved from COPD exacerbation # Suspected Pulmonary Mass (1.8 x 1.0 cm) # Elevated D-Dimer - CT chest angiogram: "1. No evidence of acute or chronic pulmonary embolism, aortic aneurysm or aortic dissection. 2. Diffuse centrilobular emphysematous changes throughout the lungs with chronic pleural parenchymal scarring in the right lung apex, anterior lingula and left lower lobe. 3. There is a new 1.8 x 1.0 cm noncalcified oval soft tissue mass in the right lower lobe with surrounding reticular thickening. Although this may be due to a new infectious or inflammatory process in the right lower lobe, a neoplastic process cannot be entirely excluded at this time. Consider a non- contrast Chest CT at 3 months, a PET/CT, or tissue sampling. These guidelines do not apply to immunocompromised patients and patients with cancer. Follow up in patients with significant comorbidities as clinically. 4. Improved aeration involving portions of the left upper lobe and lingula when compared to the prior study." - Ordered bilateral lower extremity Doppler - Consulted Pulmonary Medicine for further recommendations # Chronic Pain Syndrome - May use home suboxone # Suspected Protein Calorie Malnutrition - Consulted nutrition for formal assessment # Gastroesophageal Reflux Disease - Continue pantoprazole Favian Alexandre M.D.
[2022-04-24] MEDS: METHYLPREDNISOLONE 40 MG INJ IV SCH (19:43)
[2022-04-24 20:38] LABS: Specific Gravity > 1.030 (1.005-1.030); Urine Bilirubin NEGATIVE (Negative); Urine Blood Negative (Negative); Urine Clarity Clear (Clear); Urine Color Yellow (Yellow); Urine Glucose NEGATIVE (Negative); Urine Mucus 1+ /HPF (None Seen); Urine Protein TRACE (Negative); Urine RBC <5 /HPF (None Seen); Urine Urobilinogen Normal (Normal); Urine pH 5.5 (5.0-7.0)
[2022-04-24] MEDS: QUETIAPINE 25 MG TAB PO SCH (21:19)
[2022-04-25] MEDS: HEPARIN 5000 UNIT/ML 1 ML VIAL SQ SCH (00:27)
[2022-04-25] MEDS: IPRATROPIUM BROM 0.5MG/2.5ML NEB SCH ×4 (01:43→19:28)
[2022-04-25] MEDS: ALBUTEROL 2.5 MG/3 ML NEB SOL NEB SCH ×4 (01:43→19:28)
[2022-04-25 04:50] LABS: Hematocrit 28.6 % (39.6-49.0); MCV 87.3 fL (80-100); MPV 7.3 fL (7.6-11.3); RBC Red Blood Cell Count 3.28 M/uL (4.33-5.43)
[2022-04-25 04:52] LABS: Magnesium 2.1 mg/dL (1.8-2.4); Phosphorus 1.3 mg/dL (2.5-4.9)
[2022-04-25] MEDS: VANCOMYCIN 1 GM in NA CHLORIDE 0.9% 250 ML IVPB SCH ×2 (05:17→16:41)
[2022-04-25] MEDS: POTASS/SODIUM PHOSPHATE 1 PKT POWD.PACK PO SCH ×3 (05:18→11:06)
--- NOTE | 2022-04-25 07:29 | RAD REPORT ---
EXAM DESCRIPTION: US - Extrem Venous W Compress Ricki - 04/25/2022 12:21 am CLINICAL HISTORY: r/o DVT COMPARISON: No comparisons TECHNIQUE: Real-time sonographic evaluation of the lower extremity deep venous systems was performed using color Doppler, grayscale, and compression. FINDINGS: Bilateral lower extremities. Normal compressibility, flow augmentation, phasic flow and spontaneous flow is identified in both the left and right lower extremity deep venous systems. No intraluminal filling defects seen. IMPRESSION: No DVT in either lower extremity.
--- NOTE | 2022-04-25 08:18 | P.CNS ---
Date of Consult: 04/25/22 Reason for Consult: COPD chest discomfort metastatic lung cancer Chief Complaint: SOB History of Present Illness: Patient is 66 years of age recurrent hospital admissions has not been doing too well admitted to the hospital complaining of bilateral chest discomfort been coughing up some productive phlegm he has been here twice before he has a history of metastatic lung cancer no treatment right now pliant with his inhalers patient's white count was elevated CT scan showed some patchy changes severe COPD 6 patient was recently admitted with fungus upper respiratory tract infection that was treated with Diflucan. He has had this chest discomfort for a while is possible that he has mets treated formally with small cell lung cancer Allergies No Known Allergies Allergy (Verified 03/07/22 18:33) Home Medications: Megestrol [Megace*] 40 mg PO BID 03/07/22 Midodrine HCl [Proamatine*] 5 mg PO BID 03/07/22 Quetiapine [Seroquel*] 75 mg PO BEDTIME 03/07/22 Memantine HCl [Namenda*] 10 mg PO BID 04/23/22 - Past Medical/Surgical History Diabetic: No -: Chronic pain -: Anorexia -: COPD -: History of lung cancer, small cell lung cancer with mets - Family History Sister Medical History: Cancer - Social History Smoking Status: Current every day smoker Alcohol use: No CD- Drugs: No Caffeine use: No Place of Residence: Home Review of Systems General: Weakness Respiratory: Cough, Shortness of Breath Cardiovascular: Chest Pain Physical Examination Temp Pulse Resp BP Pulse Ox 98.0 F 81 16 104/60 98 04/25/22 04:00 04/25/22 04:00 04/25/22 04:00 04/25/22 04:00 04/25/22 04:00 General: Alert, Moderate distress Respiratory: Diminished, Expiratory wheezes Gastrointestinal: Normal bowel sounds, Soft and benign Musculoskeletal: No clubbing Integumentary: No rashes, No breakdown - Problems (1) COPD exacerbation Current Visit: No Status: Acute Plan: Patient is 66 years of age with severe COPD small cell lung cancer with metastases was treated with chemoradiation this is his third hospitalization with recurrent chest pain previously he was admitted with upper respiratory tract fungal infection he has some patchy changes on his CT scan no evidence of pulmonary embolism patient is at risk for resistant organisms agree with cefepime vancomycin for now patient was seen by ENT last visit for severe oropharyngeal candidiasis
[2022-04-25] MEDS ORDERED: guaiFENesin 100 MG/5 ML UCUP PO PRN (09:23)
[2022-04-25] MEDS: ENOXAPARIN 40 MG/0.4 ML SQ SCH (11:06)
[2022-04-25] MEDS: ASPIRIN EC 81 MG TAB PO SCH (11:06)
[2022-04-25] MEDS: METHYLPREDNISOLONE 40 MG INJ IV SCH ×2 (11:06→21:11)
[2022-04-25] MEDS: CEFEPIME 1 GM in NA CHLORIDE 0.9% 100 ML IV SCH ×2 (11:06→21:11)
--- NOTE | 2022-04-25 20:43 | P.PN ---
Subjective Date of Service: 04/25/22 Chief Complaint: SOB No acute events overnight. He reports that his shortness of breath is unchanged compared to yesterday. His SpO2 is currently 98 % on 2 L nasal cannula. He denies any chest pain or palpitations. I have encouraged him to use the incentive spirometer. Review of Systems 10-point ROS is otherwise unremarkable Respiratory: Cough, Shortness of Breath Physical Examination - Vital Signs Temperature: 98.2 F Blood Pressure: 103/56 Pulse: 93 Respirations: 16 Pulse Ox (%): 98 Assessment And Plan - Plan - Physical Exam General: Alert, In no apparent distress, Oriented x3 HEENT: Atraumatic, PERRLA, Mucous membr. moist/pink, EOMI, Sclerae nonicteric Neck: Supple, JVD not distended Respiratory: SpO2 98 % on 2 L NC. Diminished, Expiratory wheezes, Rhonchi/gurgles Cardiovascular: No edema, Regular rate/rhythm, Normal S1 S2, No gallops, No rubs, No murmurs Capillary refill: <2 Seconds Gastrointestinal: Normal bowel sounds, Soft and benign, Non-distended, No tenderness, No rebound, No guarding Musculoskeletal: No clubbing Integumentary: No rashes Neurological: Normal strength at 5/5 x4 extr, Cranial nerves 3-12 intact, Normal affect # Suspected Septic Shock likely secondary to Left Lower Lobe Community-Acquired Pneumonia He met sepsis criteria based on HR > 90 bpm, RR > 20 breaths/min, and WBC > 12,000, and the suspected source is pneumonia. Severe sepsis is suspected due to concern for tissue hypoperfusion/organ dysfunction based on hypotension (SBP < 90, MAP < 65) and lactic acid > 2 mmol/L. Septic shock is suspected due to initial lactate > 4 mmol/L. Plan: - Sepsis order set was initiated - Lactate trend: 6.7 -> 3.7 - Chest x-ray = "small left lung base pneumonia superimposed on prominent COPD" - Procalcitonin = 0.19 - Blood cultures drawn before antibiotics were given - Broad spectrum antibiotics started: - In regards to fluids: - 30 mL/kg of IV fluids was given based on patient's actual body weight - Sepsis reassessment completed by Tejinder Quiñonez NP at 03:14 AM on 04/24/2022 # Acute Chronic Obstructive Pulmonary Disease Exacerbation - Consulted Pulmonary Medicine - recommendations appreciated - DuoNebs q4-6hr - Methylprednisolone 40 mg IV q12hr - Consulted Respiratory Therapy - Supplemental oxygen to maintain SpO2 > 92% - Assess inhaler technique one improved from COPD exacerbation - Encouraged incentive spirometry # Suspected Pulmonary Mass (1.8 x 1.0 cm) # Elevated D-Dimer - CT chest angiogram: "1. No evidence of acute or chronic pulmonary embolism, aortic aneurysm or aortic dissection. 2. Diffuse centrilobular emphysematous changes throughout the lungs with chronic pleural parenchymal scarring in the right lung apex, anterior lingula and left lower lobe. 3. There is a new 1.8 x 1.0 cm noncalcified oval soft tissue mass in the right lower lobe with surrounding reticular thickening. Although this may be due to a new infectious or inflammatory process in the right lower lobe, a neoplastic process cannot be entirely excluded at this time. Consider a non- contrast Chest CT at 3 months, a PET/CT, or tissue sampling. These guidelines do not apply to immunocompromised patients and patients with cancer. Follow up in patients with significant comorbidities as clinically. 4. Improved aeration involving portions of the left upper lobe and lingula when compared to the prior study." - Ordered bilateral lower extremity Doppler - Consulted Pulmonary Medicine for further recommendations # Chronic Pain Syndrome - May use home suboxone # Suspected Protein Calorie Malnutrition - Consulted nutrition for formal assessment # Gastroesophageal Reflux Disease - Continue pantoprazole Favian Alexandre M.D.
[2022-04-25] MEDS: ENSURE ENLIVE 237 ML CAN PO SCH (21:11)
[2022-04-25] MEDS: QUETIAPINE 25 MG TAB PO SCH (21:11)
[2022-04-25] MEDS: BENZONATATE 100 MG CAP PO PRN (21:12)
[2022-04-25 22:13] LABS: Absolute Lymphocytes (CBC) 0.9 K/uL (0.7-4.9); Hematocrit 36.4 % (39.6-49.0); Lymphocytes % 5.2 % (15.3-44.8); MCV 88.3 fL (80-100); MPV 7.3 fL (7.6-11.3); RBC Red Blood Cell Count 4.12 M/uL (4.33-5.43)
[2022-04-26] MEDS: IPRATROPIUM BROM 0.5MG/2.5ML NEB SCH ×2 (00:50→08:30)
[2022-04-26] MEDS: ALBUTEROL 2.5 MG/3 ML NEB SOL NEB SCH ×2 (00:50→08:30)
[2022-04-26] MEDS: VANCOMYCIN 1 GM in NA CHLORIDE 0.9% 250 ML IVPB SCH ×2 (04:18→17:09)
[2022-04-26 06:48] LABS: Absolute Lymphocytes (CBC) 1.6 K/uL (0.7-4.9); Hematocrit 30.1 % (39.6-49.0); Lymphocytes % 9.1 % (15.3-44.8); MCV 87.4 fL (80-100); MPV 6.5 fL (7.6-11.3); RBC Red Blood Cell Count 3.44 M/uL (4.33-5.43)
[2022-04-26 07:47] LABS: Blood Morphology Comment NOT SEEN (NOT SEEN); Platelet Estimate ADEQ
[2022-04-26] MEDS: POTASS/SODIUM PHOSPHATE 1 PKT POWD.PACK PO SCH ×3 (08:26→10:00)
[2022-04-26] MEDS: ASPIRIN EC 81 MG TAB PO SCH (08:26)
[2022-04-26] MEDS: ENSURE ENLIVE 237 ML CAN PO SCH ×3 (08:27→21:31)
[2022-04-26] MEDS: ENOXAPARIN 40 MG/0.4 ML SQ SCH (08:27)
[2022-04-26] MEDS: CEFEPIME 1 GM in NA CHLORIDE 0.9% 100 ML IV SCH ×2 (08:28→21:25)
[2022-04-26] MEDS: METHYLPREDNISOLONE 40 MG INJ IV SCH ×2 (08:28→21:30)
[2022-04-26] MEDS ORDERED: Ringers Lactate 500 ML IV SCH (10:27)
--- NOTE | 2022-04-26 12:58 | P.PN ---
Subjective Date of Service: 04/26/22 Chief Complaint: SOB No acute events overnight. He reports that his breathing is improved compared to yesterday. His SpO2 is currently 97 % on 2 L nasal cannula. He denies any chest pain or palpitations. Lactic acid this morning was 3.7. Suspect component of type B lactic acidosis from bronchodilator treatments. Review of Systems 10-point ROS is otherwise unremarkable Respiratory: Cough, Shortness of Breath Physical Examination - Vital Signs Temperature: 98.4 F Blood Pressure: 120/72 Pulse: 78 Respirations: 16 Pulse Ox (%): 97 Assessment And Plan - Plan - Physical Exam General: Alert, In no apparent distress, Oriented x3 HEENT: Atraumatic, PERRLA, Mucous membr. moist/pink, EOMI, Sclerae nonicteric Neck: Supple, JVD not distended Respiratory: SpO2 97 % on 2 L NC. Diminished, Expiratory wheezes, Rhonchi/gurgles Cardiovascular: No edema, Regular rate/rhythm, Normal S1 S2, No gallops, No rubs , No murmurs Capillary refill: <2 Seconds Gastrointestinal: Normal bowel sounds, Soft and benign, Non-distended, No tenderness, No rebound, No guarding Musculoskeletal: No clubbing Integumentary: No rashes Neurological: Normal strength at 5/5 x4 extr, Cranial nerves 3-12 intact, Normal affect # Suspected Septic Shock likely secondary to Left Lower Lobe Community-Acquired Pneumonia # Lactic Acidosis due to above as well as Type B Lactic Acidosis from Bronch odilator Therapy He met sepsis criteria based on HR > 90 bpm, RR > 20 breaths/min, and WBC > 12,000, and the suspected source is pneumonia. Severe sepsis is suspected due to concern for tissue hypoperfusion/organ dysfunction based on hypotension (SBP < 90, MAP < 65) and lactic acid > 2 mmol/L. Septic shock is suspected due to initial lactate > 4 mmol/L. Plan: - Sepsis order set was initiated - Lactate trend: 6.7 -> 3.7 -> 3.7 - Chest x-ray = "small left lung base pneumonia superimposed on prominent COPD" - Procalcitonin = 0.19 - Blood cultures drawn before antibiotics were given - Broad spectrum antibiotics started: Vancomycin + Cefepime - In regards to fluids: - 30 mL/kg of IV fluids was given based on patient's actual body weight - Sepsis reassessment completed by Tejinder Quiñonez NP at 03:14 AM on 04/24/2022 # Acute Chronic Obstructive Pulmonary Disease Exacerbation - Consulted Pulmonary Medicine - recommendations appreciated - DuoNebs q4-6hr - Methylprednisolone 40 mg IV q12hr - Consulted Respiratory Therapy - Supplemental oxygen to maintain SpO2 > 92% - Assess inhaler technique one improved from COPD exacerbation - Encouraged incentive spirometry # Suspected Pulmonary Mass (1.8 x 1.0 cm) # Elevated D-Dimer - CT chest angiogram: "1. No evidence of acute or chronic pulmonary embolism, aortic aneurysm or aortic dissection. 2. Diffuse centrilobular emphysematous changes throughout the lungs with chronic pleural parenchymal scarring in the right lung apex, anterior lingula and left lower lobe. 3. There is a new 1.8 x 1.0 cm noncalcified oval soft tissue mass in the right lower lobe with surrounding reticular thickening. Although this may be due to a new infectious or inflammatory process in the right lower lobe, a neoplastic process cannot be entirely excluded at this time. Consider a non- contrast Chest CT at 3 months, a PET/CT, or tissue sampling. These guidelines do not apply to immunocompromised patients and patients with cancer. Follow up in patients with significant comorbidities as clinically. 4. Improved aeration involving portions of the left upper lobe and lingula when compared to the prior study." - Bilateral lower extremity Doppler = "no DVT in either lower extremity." - Consulted Pulmonary Medicine for further recommendations # Chronic Pain Syndrome - May use home suboxone # Suspected Protein Calorie Malnutrition - Consulted nutrition for formal assessment # Gastroesophageal Reflux Disease - Continue pantoprazole Favian Alexandre M.D.
[2022-04-26] MEDS ORDERED: IPRATROPIUM BROM 0.5MG/2.5ML NEB PRN (13:03)
[2022-04-26] MEDS ORDERED: ALBUTEROL 2.5 MG/3 ML NEB SOL NEB PRN (13:03)
[2022-04-26] MEDS: QUETIAPINE 25 MG TAB PO SCH (21:29)
[2022-04-27] MEDS: VANCOMYCIN 1.25 GM in NA CHLORIDE 0.9% 250 ML IVPB SCH ×2 (04:23→17:09)
[2022-04-27] MEDS: ASPIRIN EC 81 MG TAB PO SCH (08:47)
[2022-04-27] MEDS: ENSURE ENLIVE 237 ML CAN PO SCH ×3 (08:47→20:40)
[2022-04-27] MEDS: METHYLPREDNISOLONE 40 MG INJ IV SCH (09:02)
[2022-04-27] MEDS: CEFEPIME 1 GM in NA CHLORIDE 0.9% 100 ML IV SCH ×2 (09:03→20:39)
[2022-04-27] MEDS: ENOXAPARIN 40 MG/0.4 ML SQ SCH (09:03)
--- NOTE | 2022-04-27 09:53 | P.PN ---
Subjective Date of Service: 04/27/22 Chief Complaint: SOB No acute events overnight. He reports that his breathing is unchanged over the last 24 hours. His SpO2 is currently 96 % on 2 L nasal cannula. He denies any chest pain or palpitations. His blood culture returned positive for gram- negative rods. Review of Systems 10-point ROS is otherwise unremarkable Respiratory: Cough, Shortness of Breath Physical Examination - Vital Signs Temperature: 97.6 F Blood Pressure: 133/79 Pulse: 69 Respirations: 16 Pulse Ox (%): 96 Assessment And Plan - Plan - Physical Exam General: Alert, In no apparent distress, Oriented x3 HEENT: Atraumatic, PERRLA, Mucous membr. moist/pink, EOMI, Sclerae nonicteric Neck: Supple, JVD not distended Respiratory: SpO2 96 % on 2 L NC. Diminished, Expiratory wheezes, Rhonchi/gurgles Cardiovascular: No edema, Regular rate/rhythm, Normal S1 S2, No gallops, No rubs, No murmurs Capillary refill: <2 Seconds Gastrointestinal: Normal bowel sounds, Soft and benign, Non-distended, No tenderness, No rebound, No guarding Musculoskeletal: No clubbing Integumentary: No rashes Neurological: Normal strength at 5/5 x4 extr, Cranial nerves 3-12 intact, Normal affect # Suspected Septic Shock likely secondary to Left Lower Lobe Community-Acquired Pneumonia with Gram-Negative Bacteremia # Lactic Acidosis due to above as well as Type B Lactic Acidosis from Bronchodilator Therapy He met sepsis criteria based on HR > 90 bpm, RR > 20 breaths/min, and WBC > 12,000, and the suspected source is pneumonia. Severe sepsis is suspected due to concern for tissue hypoperfusion/organ dysfunction based on hypotension (SBP < 90, MAP < 65) and lactic acid > 2 mmol/L. Septic shock is suspected due to initial lactate > 4 mmol/L. Plan: - Sepsis order set was initiated - Lactate trend: 6.7 -> 3.7 -> 3.7 -> 5.5 -> 4.1 -> 3.1 - Chest x-ray = "small left lung base pneumonia superimposed on prominent COPD" - Procalcitonin = 0.19 - Blood cultures drawn before antibiotics were given - Broad spectrum antibiotics started: Vancomycin + Cefepime - In regards to fluids: - 30 mL/kg of IV fluids was given based on patient's actual body weight - Sepsis reassessment completed by Tejinder Quiñonez NP at 03:14 AM on 04/24/2022 - Blood culture positive for gram-negative rods - Consulted Infectious Diseases - recommendations appreciated - Continue current antibiotics - Repeat blood cultures requested # Acute Chronic Obstructive Pulmonary Disease Exacerbation - Consulted Pulmonary Medicine - recommendations appreciated - DuoNebs q4-6hr - Methylprednisolone 40 mg IV q12hr - Consulted Respiratory Therapy - Supplemental oxygen to maintain SpO2 > 92% - Assess inhaler technique one improved from COPD exacerbation - Encouraged incentive spirometry # Suspected Pulmonary Mass (1.8 x 1.0 cm) # Elevated D-Dimer - CT chest angiogram: "1. No evidence of acute or chronic pulmonary embolism, aortic aneurysm or aortic dissection. 2. Diffuse centrilobular emphysematous changes throughout the lungs with chronic pleural parenchymal scarring in the right lung apex, anterior lingula and left lower lobe. 3. There is a new 1.8 x 1.0 cm noncalcified oval soft tissue mass in the right lower lobe with surrounding reticular thickening. Although this may be due to a new infectious or inflammatory process in the right lower lobe, a neoplastic process cannot be entirely excluded at this time. Consider a non- contrast Chest CT at 3 months, a PET/CT, or tissue sampling. These guidelines do not apply to immunocompromised patients and patients with cancer. Follow up in patients with significant comorbidities as clinically. 4. Improved aeration involving portions of the left upper lobe and lingula when compared to the prior study." - Bilateral lower extremity Doppler = "no DVT in either lower extremity." - He was informed of the above findings - Consulted Pulmonary Medicine for further recommendations # Chronic Pain Syndrome - May use home suboxone # Suspected Protein Calorie Malnutrition - Consulted nutrition for formal assessment # Gastroesophageal Reflux Disease - Continue pantoprazole Favian Alexandre M.D.
[2022-04-27 10:52] LABS: Absolute Lymphocytes (CBC) 1.7 K/uL (0.7-4.9); Hematocrit 31.4 % (39.6-49.0); Lymphocytes % 9.8 % (15.3-44.8); MCV 86.9 fL (80-100); MPV 6.7 fL (7.6-11.3); RBC Red Blood Cell Count 3.62 M/uL (4.33-5.43)
[2022-04-27 11:21] LABS: Potassium 4.3 mmol/L (3.5-5.1)
[2022-04-27 12:53] LABS: Blood Morphology Comment NOT SEEN (NOT SEEN); Platelet Estimate ADEQ
[2022-04-27] MEDS: QUETIAPINE 25 MG TAB PO SCH (20:40)
[2022-04-28 04:05] LABS: Hematocrit 33.8 % (39.6-49.0); Lymphocytes % 14.8 % (15.3-44.8); MPV 7.1 fL (7.6-11.3); RBC Red Blood Cell Count 3.84 M/uL (4.33-5.43)
[2022-04-28] MEDS: VANCOMYCIN 1.25 GM in NA CHLORIDE 0.9% 250 ML IVPB SCH ×2 (04:48→16:21)
[2022-04-28] MEDS: ASPIRIN EC 81 MG TAB PO SCH (08:32)
[2022-04-28] MEDS: predniSONE 20 MG TAB PO SCH ×2 (08:32→21:33)
[2022-04-28] MEDS: CEFEPIME 1 GM in NA CHLORIDE 0.9% 100 ML IV SCH ×2 (08:33→21:33)
[2022-04-28] MEDS: ENSURE ENLIVE 237 ML CAN PO SCH ×3 (08:33→21:34)
[2022-04-28] MEDS: ENOXAPARIN 40 MG/0.4 ML SQ SCH (08:33)
[2022-04-28] MEDS: Oxycodone HCl/Acetaminophen 1 TAB TAB PO PRN (11:56)
[2022-04-28] MEDS ORDERED: IPRATROPIUM BROM 0.5MG/2.5ML NEB PRN (17:00)
[2022-04-28] MEDS ORDERED: ALBUTEROL 2.5 MG/3 ML NEB SOL NEB PRN (17:00)
--- NOTE | 2022-04-28 18:19 | P.PN ---
Subjective Date of Service: 04/28/22 Chief Complaint: SOB No acute events overnight. He appeared comfortable eating breakfast this morning. He reports that he feels that he is improving. He is on his baseline oxygen status and reports improvement in his respiratory symptoms. Review of Systems 10-point ROS is otherwise unremarkable Respiratory: SOB with Excertion Physical Examination - Vital Signs Temperature: 98.5 F Blood Pressure: 122/73 Pulse: 87 Respirations: 14 Pulse Ox (%): 97 - Studies Microbiology Data (last 24 hrs): 04/23/22 12:46 Blood - Blood Aerobic Blood Culture - Final No growth in 5 days. 04/23/22 12:46 Blood - Blood Anaerobic Blood Culture - Final No growth in 5 days. 04/23/22 12:50 Blood - Blood Aerobic Blood Culture - Final No growth in 5 days. 04/23/22 12:50 Blood - Blood Anaerobic Blood Culture - Final No growth in 5 days. Assessment And Plan - Plan - Physical Exam General: Alert, In no apparent distress, Oriented x3 HEENT: Atraumatic, PERRLA, Mucous membr. moist/pink, EOMI, Sclerae nonicteric Neck: Supple, JVD not distended Respiratory: SpO2 94 % on 2 L NC. Diminished, Expiratory wheezes, Rhonchi/gurgles Cardiovascular: No edema, Regular rate/rhythm, Normal S1 S2, No gallops, No rubs, No murmurs Capillary refill: <2 Seconds Gastrointestinal: Normal bowel sounds, Soft and benign, Non-distended, No tenderness, No rebound, No guarding Musculoskeletal: No clubbing Integumentary: No rashes Neurological: Normal strength at 5/5 x4 extr, Cranial nerves 3-12 intact, Normal affect # Suspected Septic Shock likely secondary to Left Lower Lobe Community-Acquired Pneumonia with Gram-Negative Bacteremia # Lactic Acidosis due to above as well as Type B Lactic Acidosis from Bronchodilator Therapy He met sepsis criteria based on HR > 90 bpm, RR > 20 breaths/min, and WBC > 12,000, and the suspected source is pneumonia. Severe sepsis is suspected due to concern for tissue hypoperfusion/organ dysfunction based on hypotension (SBP < 90, MAP < 65) and lactic acid > 2 mmol/L. Septic shock is suspected due to initial lactate > 4 mmol/L. Plan: - Sepsis order set was initiated - Lactate trend: 6.7 -> 3.7 -> 3.7 -> 5.5 -> 4.1 -> 3.1 - Chest x-ray = "small left lung base pneumonia superimposed on prominent COPD" - Procalcitonin = 0.19 - Blood cultures drawn before antibiotics were given - Broad spectrum antibiotics started: Vancomycin + Cefepime - In regards to fluids: - 30 mL/kg of IV fluids was given based on patient's actual body weight - Sepsis reassessment completed by Tejinder Quiñonez NP at 03:14 AM on 04/24/2022 - Blood culture positive for gram-negative rods - Consulted Infectious Diseases - recommendations appreciated - Continue current antibiotics - Repeat blood cultures requested = no growth to date - Possible discharge in next 1-2 days pending ID recs # Acute Chronic Obstructive Pulmonary Disease Exacerbation - Consulted Pulmonary Medicine - recommendations appreciated - DuoNebs q4-6hr - Methylprednisolone 40 mg IV q12hr - Consulted Respiratory Therapy - Supplemental oxygen to maintain SpO2 > 92% - Assess inhaler technique one improved from COPD exacerbation - Encouraged incentive spirometry # Suspected Pulmonary Mass (1.8 x 1.0 cm) # Elevated D-Dimer - CT chest angiogram: "1. No evidence of acute or chronic pulmonary embolism, aortic aneurysm or aortic dissection. 2. Diffuse centrilobular emphysematous changes throughout the lungs with chronic pleural parenchymal scarring in the right lung apex, anterior lingula and left lower lobe. 3. There is a new 1.8 x 1.0 cm noncalcified oval soft tissue mass in the right lower lobe with surrounding reticular thickening. Although this may be due to a new infectious or inflammatory process in the right lower lobe, a ne oplastic process cannot be entirely excluded at this time. Consider a non- contrast Chest CT at 3 months, a PET/CT, or tissue sampling. These guidelines do not apply to immunocompromised patients and patients with cancer. Follow up in patients with significant comorbidities as clinically. 4. Improved aeration involving portions of the left upper lobe and lingula when compared to the prior study." - Bilateral lower extremity Doppler = "no DVT in either lower extremity." - He was informed of the above findings - Consulted Pulmonary Medicine for further recommendations # Chronic Pain Syndrome - May use home suboxone # Suspected Protein Calorie Malnutrition - Consulted nutrition for formal assessment # Gastroesophageal Reflux Disease - Continue pantoprazole Favian Alexandre M.D.
[2022-04-28] MEDS: QUETIAPINE 25 MG TAB PO SCH (21:34)
[2022-04-29 03:48] LABS: Absolute Lymphocytes (CBC) 2.6 K/uL (0.7-4.9); Hematocrit 34.3 % (39.6-49.0); Lymphocytes % 13.6 % (15.3-44.8); MCV 88.4 fL (80-100); RBC Red Blood Cell Count 3.87 M/uL (4.33-5.43)
[2022-04-29 05:40] LABS: Potassium 4.4 mmol/L (3.5-5.1)
[2022-04-29] MEDS: VANCOMYCIN 1.25 GM in NA CHLORIDE 0.9% 250 ML IVPB SCH ×2 (05:41→17:57)
[2022-04-29 06:53] LABS: Magnesium 2.3 mg/dL (1.8-2.4)
[2022-04-29] MEDS: predniSONE 20 MG TAB PO SCH ×2 (08:10→20:21)
[2022-04-29] MEDS: ASPIRIN EC 81 MG TAB PO SCH (08:11)
[2022-04-29] MEDS: ENOXAPARIN 40 MG/0.4 ML SQ SCH (08:11)
[2022-04-29] MEDS: ENSURE ENLIVE 237 ML CAN PO SCH ×3 (08:12→21:00)
[2022-04-29] MEDS: D5 0.45 NS 1,000 ML IV SCH (12:43)
[2022-04-29] MEDS: CEFEPIME 1 GM in NA CHLORIDE 0.9% 100 ML IV SCH ×2 (12:45→20:21)
[2022-04-29] MEDS ORDERED: VANCOMYCIN 1.25 GM in NA CHLORIDE 0.9% 250 ML IVPB SCH (18:00)
[2022-04-29] MEDS: VANCOMYCIN 1.5 GM in NA CHLORIDE 0.9% 500 ML IVPB SCH (18:21)
[2022-04-29] MEDS: Oxycodone HCl/Acetaminophen 1 TAB TAB PO PRN (19:37)
[2022-04-29] MEDS: QUETIAPINE 25 MG TAB PO SCH (20:21)
[2022-04-30] MEDS: VANCOMYCIN 1.5 GM in NA CHLORIDE 0.9% 500 ML IVPB SCH ×2 (05:03→17:24)
[2022-04-30] MEDS: predniSONE 20 MG TAB PO SCH ×2 (09:39→20:41)
[2022-04-30] MEDS: ASPIRIN EC 81 MG TAB PO SCH (09:39)
[2022-04-30] MEDS: ENSURE ENLIVE 237 ML CAN PO SCH ×3 (09:39→20:40)
[2022-04-30] MEDS: ENOXAPARIN 40 MG/0.4 ML SQ SCH (09:40)
[2022-04-30] MEDS: CEFEPIME 1 GM in NA CHLORIDE 0.9% 100 ML IV SCH ×2 (09:44→20:40)
--- NOTE | 2022-04-30 10:21 | CON ---
History Of Present Illness: This is a 66-year-old male with recurrent pneumonia secondary to lung cancer. The patient was at [facility] where he developed COVID infection also and remained for 6 months. The patient was able to get discharge, coming in with cough, shortness of breath and chest tightness and fatigue. He denies any chest pain, abdominal pain, constipation, or diarrhea. He feels much better today. He is currently on vanc and cefepime. See [facility] for other medication. Past Medical History: As per HPI. Social History: Nonsmoker, nondrinker. Family History: Noncontributory. Medications: Cefepime and vanco. See MAR for other medications. Allergies: NO KNOWN DRUG ALLERGIES. Review of Systems: A 10-point review was performed. Physical Examination: General: This is a 66-year-old male, lying in bed, not in any acute cardiopulmonary distress. Vital Signs: Temperature 98.7, pulse 79, respirations 19, blood pressure 130/61. HEENT: Unremarkable. Neck: Supple. Lungs: Basal crackles. Heart: S1, S2. Regular. Abdomen: Soft, nontender. Bowel sounds present. EXTREMITIES: No edema. Laboratory Data: Shows WBC 19,000, hemoglobin 9.3, platelets 356. Chemistry shows sodium 141, potassium 4.5, chloride 108, bicarb 25, BUN 18, creatinine 0.5, glucose of 106. Urine is negative for any organisms. Blood cultures are growing gram-negative rods. A CT chest scan done on 04/23 shows no evidence of acute or chronic pulmonary embolism, aortic aneurysm, or aortic dissection. #2 diffuse centrilobular emphysematous changes throughout the lungs with chronic pleural-parenchymal scarring in the right lung apex and severe lingula and left lower lobe. There is new 1.8 x 1 cm nonpalpable soft tissue mass in the right lower lobe with surrounding reticular thickening, although this maybe related with new infections or inflammatory process in the right lower lobe and neoplastic process cannot be entirely excluded. Assessment And Plan: Gram-negative catarino bacteremia in a patient with history of lung cancer status post radiation and chemotherapy, which is showing signs of improvement. Leukocytosis most likely reactive secondary to steroid therapy. Continue current treatment. Can be switched to oral antibiotic regimen once they plan to discharge. Continue total treatment for 14 days. We will follow the patient closely. Continue pulmonary hygiene and nutritional support. Thank you Dr. Leonard for consult NF/MODL Voice ID: [id number] Report ID: [id number] CLEMENTINE
[2022-04-30] MEDS: BENZONATATE 100 MG CAP PO PRN (12:07)
[2022-04-30 13:47] LABS: Absolute Lymphocytes (CBC) 2.6 K/uL (0.7-4.9); Hematocrit 35.3 % (39.6-49.0); Lymphocytes % 8.5 % (15.3-44.8); MCV 88.7 fL (80-100); MPV 7.1 fL (7.6-11.3); RBC Red Blood Cell Count 3.99 M/uL (4.33-5.43)
[2022-04-30 14:55] LABS: Blood Morphology Comment NOT SEEN (NOT SEEN); Platelet Estimate ADEQ
[2022-04-30] MEDS: QUETIAPINE 25 MG TAB PO SCH (20:41)
[2022-04-30] MEDS: D5 0.45 NS 1,000 ML IV SCH (22:20)
[2022-05-01] MEDS: VANCOMYCIN 1.5 GM in NA CHLORIDE 0.9% 500 ML IVPB SCH (06:00)
[2022-05-01] MEDS: ENOXAPARIN 40 MG/0.4 ML SQ SCH (08:17)
[2022-05-01] MEDS: CEFEPIME 1 GM in NA CHLORIDE 0.9% 100 ML IV SCH (08:17)
[2022-05-01] MEDS: predniSONE 20 MG TAB PO SCH (08:18)
[2022-05-01] MEDS: ASPIRIN EC 81 MG TAB PO SCH (08:18)
[2022-05-01] MEDS: ENSURE ENLIVE 237 ML CAN PO SCH ×3 (08:19→21:00)
[2022-05-01] MEDS ORDERED: predniSONE 10 MG TAB PO SCH (09:00)
[2022-05-01] MEDS: D5 0.45 NS 1,000 ML IV SCH (10:04)
[2022-05-01] MEDS: NYSTATIN 500,000 UNIT/5 ML UDC PO SCH ×4 (10:06→21:04)
[2022-05-01] MEDS: FLUCONAZOLE 400 MG IVPB 400 MG/200 ML BAG IV SCH (10:06)
[2022-05-01] MEDS: levoFLOXacin 750 MG TAB PO SCH (10:06)
--- NOTE | 2022-05-01 10:44 | P.PN ---
Subjective Date of Service: 04/29/22 Subjective: No new changes, No C/O voiced, Improving Review of Systems 10-point ROS is otherwise unremarkable Physical Examination - Vital Signs Temperature: 97.4 F Blood Pressure: 136/77 Pulse: 65 Respirations: 16 Pulse Ox (%): 90 - Physical Exam General: Alert, In no apparent distress, Oriented x3, Cachectic HEENT: Atraumatic, PERRLA, EOMI Neck: Supple, JVD not distended Respiratory: Diminished, Rhonchi/gurgles Cardiovascular: Regular rate/rhythm, Normal S1 S2, Systolic murmur Gastrointestinal: Normal bowel sounds, Soft and benign, Non-distended, No tenderness Musculoskeletal: No clubbing, No swelling, No tenderness Neurological: Sensation intact, Cranial nerves 3-12 intact - Studies Medications List Reviewed: Yes Assessment & Plan - Problems (Diagnosis) (1) Lung mass Current Visit: Yes Status: Acute (2) COPD exacerbation Current Visit: No Status: Acute (3) Tati esophagitis Current Visit: No Status: Acute (4) History of lung cancer Current Visit: No Status: Acute (5) Pneumonia Current Visit: No Status: Acute Qualifiers: Pneumonia type: due to unspecified organism Laterality: left - Plan Plan: 1. Continue with albuterol and Atrovent nebs 2. Continue with IV steroids 3. Outpatient follow-up with oncology at [place] for new onset lung mass 4. Pulmonary follow-up 5. Room air O2 sats 6. Repeat chest x-ray in the morning 7. GI and DVT prophylaxis Discharge Plan: Home Plan to discharge in: Greater than 2 days - Advance Directives Does patient have a Living Will: No Does patient have a Durable POA for Healthcare: No - Code Status/Comfort Care Code Status Assessed: Yes Code Status: Full Code Physician Review: Patient Assessed, Agree with Above Assessment and Plan Critical Care: No Time Spent Managing PTS Care (In Minutes): 35
--- NOTE | 2022-05-01 10:46 | P.PN ---
Date of Service: 04/30/22 Subjective Patient with leukocytosis. Symptoms are improving. However, he still does not feel well. Patient has a lung mass. Review of Systems 10-point ROS is otherwise unremarkable Physical Examination - Vital Signs Reviewed - Physical Exam General: Alert, In no apparent distress, Oriented x3, Cachectic Respiratory: Diminished, Rhonchi/gurgles Cardiovascular: Regular rate/rhythm, Normal S1 S2, Systolic murmur Gastrointestinal: Normal bowel sounds, Soft and benign, Non-distended, No tenderness Musculoskeletal: No clubbing, No swelling, No tenderness Neurological: Sensation intact, Cranial nerves 3-12 intact Assessment & Plan - Problems (Diagnosis) (1) Lung mass Current Visit: Yes Status: Acute (2) COPD exacerbation Current Visit: No Status: Acute (3) Tati esophagitis Current Visit: No Status: Acute (4) History of lung cancer Current Visit: No Status: Acute (5) Pneumonia Current Visit: No Status: Acute Qualifiers: Pneumonia type: due to unspecified organism Laterality: left - Plan Continue with plan of care as mentioned below: 1. Continue with albuterol and Atrovent nebs 2. Continue with IV steroids; will change to oral steroids in the morning. Continue with antibiotic therapy 3. Outpatient follow-up with oncology at [facility] for new onset lung mass 4. Pulmonary follow-up 5. Room air O2 sats; continue with oxygen 6. Repeat chest x-ray in the morning 7. GI and DVT prophylaxis
[2022-05-01 11:21] LABS: Absolute Lymphocytes (CBC) 1.3 K/uL (0.7-4.9); Lymphocytes % 5.6 % (15.3-44.8); MCV 89.7 fL (80-100); MPV 6.7 fL (7.6-11.3); RBC Red Blood Cell Count 4.01 M/uL (4.33-5.43)
[2022-05-01 11:38] LABS: Albumin 2.4 g/dL (3.4-5.0); Bilirubin Total 0.4 mg/dL (0.2-1.0); Potassium 3.6 mmol/L (3.5-5.1); Protein, Total 6.2 g/dL (6.4-8.2)
--- NOTE | 2022-05-01 12:14 | P.PN ---
Subjective Date of Service: 05/01/22 Chief Complaint: Elevated white count Subjective: Improving (Patient is improving still has some sore throat he was diagnosed with candidal esophagitis last visit his white count has increased significantly) Review of Systems General: Weakness Respiratory: Cough, Shortness of Breath Physical Examination - Vital Signs Temperature: 97.4 F Blood Pressure: 136/77 Pulse: 65 Respirations: 16 Pulse Ox (%): 90 - Physical Exam General: Alert, In no apparent distress, Oriented x3 Respiratory: Clear to auscultation bilaterally, Diminished Cardiovascular: No edema, Normal S1 S2 - Studies Medications List Reviewed: Yes Assessment And Plan - Current Problems (Diagnosis) (1) COPD exacerbation Current Visit: No Status: Acute Plan: Patient is 66 years of age with a history of lung cancer renal COPD history of Tati esophagitis his white count has increased significantly gram-negative catarino isolated in the blood was sensitive to cefepime changed him over to p.o. (2) Tati esophagitis Current Visit: No Status: Acute - Plan History of Tati esophagitis better with nystatin swish and swallow last visit add IV Diflucan and nystatin as he complains of a sore throat was seen by ENT last visit chemistries reviewed reduce the dose of his steroid 10 mg once a day blood cultures no growth most likely contaminant CT scan shows right lower lobe lung mass with severe COPD changes qualify for home O2 Physician Review: Patient Assessed, Agree with Above Assessment and Plan
[2022-05-01] MEDS: HYDROMORPHONE HCL 0.5 MG/0.5 ML INJ IV PRN ×2 (13:26→21:04)
--- NOTE | 2022-05-01 16:08 | PN ---
Subjective: The patient is lying in bed. No new acute event. Complained of thrush for which he is getting swish and swallow to help him. Objective: Vital Signs: Temperature 97, pulse 65, respirations 16, blood pressure 136/77, 1.5 L [place] al cannula. Lungs: Basal crackles. Heart: S1, S2. Regular. Abdomen: Soft, nontender. Bowel sounds present. Extremity: No edema. Laboratory Data: Shows WBC 30,000, hemoglobin 11.5, platelets are 316. Medications: The patient is currently on fluconazole, Levaquin 750, and vancomycin. See MAR for oth er medications. Assessment And Plan: History of lung cancer with leukocytosis, reactive versus postobstructive pneum onia. Continue the patient also on long-standing steroid therapy. Continue supportive care and janie tor for signs of infection. Consider transferring the patient to [facility] for further management. We will follow the patient as needed. NF/MODL Voice ID: [id number] Report ID: [id number]
[2022-05-01] MEDS: VANCOMYCIN 1.25 GM in NA CHLORIDE 0.9% 250 ML IVPB SCH (16:57)
[2022-05-01] MEDS: QUETIAPINE 25 MG TAB PO SCH (21:04)
[2022-05-02] MEDS: VANCOMYCIN 1.25 GM in NA CHLORIDE 0.9% 250 ML IVPB SCH (06:19)
[2022-05-02] MEDS ORDERED: POTASSIUM CL SA 10 MEQ TAB PO ONE (07:43)
[2022-05-02] MEDS: ENOXAPARIN 40 MG/0.4 ML SQ SCH (08:54)
[2022-05-02] MEDS: FLUCONAZOLE 400 MG IVPB 400 MG/200 ML BAG IV SCH (08:55)
[2022-05-02] MEDS: levoFLOXacin 750 MG TAB PO SCH (08:55)
[2022-05-02] MEDS: ASPIRIN EC 81 MG TAB PO SCH (08:55)
[2022-05-02] MEDS: NYSTATIN 500,000 UNIT/5 ML UDC PO SCH ×2 (08:56→14:48)
[2022-05-02] MEDS ORDERED: predniSONE 10 MG TAB PO SCH (09:00)
[2022-05-02] MEDS: HYDROMORPHONE HCL 0.5 MG/0.5 ML INJ IV PRN (09:05)
[2022-05-02] MEDS: ENSURE ENLIVE 237 ML CAN PO SCH ×2 (09:06→14:00)
--- NOTE | 2022-05-02 11:49 | P.PN ---
Subjective Date of Service: 05/02/22 Chief Complaint: COPD exacerbation Patient states he is not feeling well he still feels congested Review of Systems General: Weakness Respiratory: Shortness of Breath Physical Examination - Vital Signs Temperature: 97.6 F Blood Pressure: 118/76 Pulse: 76 Respirations: 20 Pulse Ox (%): 96 - Physical Exam General: Alert, In no apparent distress, Mild distress Respiratory: Expiratory wheezes Cardiovascular: No edema, Normal S1 S2 - Studies Medications List Reviewed: Yes Assessment And Plan - Current Problems (Diagnosis) (1) COPD exacerbation Current Visit: No Status: Acute Plan: COPD exacerbation continue with present therapy debilitated prognosis poor (2) Tati esophagitis Current Visit: No Status: Acute - Plan Continue with Diflucan await labs from today so far cultures are negative DC vancomycin Physician Review: Patient Assessed, Agree with Above Assessment and Plan
[2022-05-02 12:15] LABS: Absolute Lymphocytes (CBC) 2.3 K/uL (0.7-4.9); Hematocrit 34.2 % (39.6-49.0); MCV 88.3 fL (80-100); MPV 6.6 fL (7.6-11.3); RBC Red Blood Cell Count 3.87 M/uL (4.33-5.43)
[2022-05-02 12:30] VITALS: BP 136/77; TEMP 97.4
--- NOTE | 2022-05-02 12:30 | P.PN ---
Date of Service: 05/01/22 Subjective Patient discharge was held because he had a leukocytosis but this is improving. We will keep him in the hospital overnight and if he continues to improve then anticipate discharge tomorrow. He still has some upper respiratory symptoms. He still having some congestion. But as long as his labs continue to improve and is tolerating his medications he should be stable for discharge. He does need to follow-up at [facility] for continued work-up as an outpatient for lung mass. Review of Systems 10-point ROS is otherwise unremarkable Physical Examination - Vital Signs Reviewed - Physical Exam General: Alert, In no apparent distress, Oriented x3, Cachectic; no thrush is seen Respiratory: Diminished, but otherwise clear with end expiratory wheezing Cardiovascular: Regular rate/rhythm, Normal S1 S2, Systolic murmur Gastrointestinal: Normal bowel sounds, Soft and benign, Non-distended, No t enderness Musculoskeletal: No clubbing, No swelling, No tenderness Neurological: Sensation intact, Cranial nerves 3-12 intact Assessment & Plan - Problems (Diagnosis) (1) Lung mass Current Visit: Yes Status: Acute (2) COPD exacerbation Current Visit: No Status: Acute (3) Tati esophagitis Current Visit: No Status: Acute (4) History of lung cancer Current Visit: No Status: Acute (5) Pneumonia Current Visit: No Status: Acute Qualifiers: Pneumonia type: due to unspecified organism Laterality: left - Plan Continue with plan of care as mentioned below: 1. Continue with albuterol and Atrovent nebs 2. Continue with steroids; changed to oral steroids. Continue with antibiotic therapy 3. Outpatient follow-up with oncology at [facility] for new onset lung mass 4. Pulmonary follow-up 5. Room air O2 sats; continue with oxygen 6. Repeat chest x-ray in the morning 7. Continue with antifungal 8. GI and DVT prophylaxis
[2022-05-02 12:53] LABS: Blood Morphology Comment NOT SEEN (NOT SEEN); Platelet Estimate ADEQ; White Blood Cell Scan OK (OK)
[2022-05-02 15:58] VITALS: O2SAT 99
== END 2022-05-02 17:20 | disposition home or self-care (01) | DRG 871 ==
LOC: ER 11:13 → ERHOLD 13:24 → 4TH 20:27
PROVIDERS: ADMIT Internal Medicine; ATTEND Hospitalist
DX: A41.50 Gram-negative sepsis, unspecified (principal); E43 Unspecified severe protein-calorie malnutrition; J18.9 Pneumonia, unspecified organism; R65.21 Severe sepsis with septic shock; Z68.1 Body mass index [BMI] 19.9 or less, adult; J44.0 Chronic obstructive pulmonary disease with (acute) lower respiratory infection; J44.1 Chronic obstructive pulmonary disease with (acute) exacerbation; E87.20 Acidosis, unspecified; C79.9 Secondary malignant neoplasm of unspecified site; B37.81 Candidal esophagitis; R64 Cachexia; D63.8 Anemia in other chronic diseases classified elsewhere; G89.4 Chronic pain syndrome; K21.9 Gastro-esophageal reflux disease without esophagitis; F17.210 Nicotine dependence, cigarettes, uncomplicated; R91.8 Other nonspecific abnormal finding of lung field; R79.89 Other specified abnormal findings of blood chemistry; Z92.21 Personal history of antineoplastic chemotherapy; Z92.3 Personal history of irradiation; Z85.118 Personal history of other malignant neoplasm of bronchus and lung; Z79.899 Other long term (current) drug therapy; Z20.822 Contact with and (suspected) exposure to COVID-19
CPT/HCPCS: 36415; 71045; 71275; 80048; 80053; 80202; 81001; 82565; 83605; 83735; 83880; 84100; 84145; 84484; 85025; 85379; 85610; 87040; 87070; 87077; 87186; 87205; 87804; 93005; 93970; 94010; 94640; 96365; 96375; 99285; C9113; J0692; J1170; J1450; J1644; J1650; J2270; J2920; J3370; J3475; J7030; J7040; J7050; J7120; J7512; J7799; Q9967; U0003

== ENCOUNTER 2022-08-29 15:56 | Observation (INO) | payer OTHER ==
--- OUTSIDE RECORDS SUMMARY | 2022-08-29 16:30 | XMS REPORT | Clinical Summary ---
:1955 Author Organization [facility] Address [address] [place] [address] Care Team Providers Name Role Phone Carl Jones MD Unavailable Henrique Plasencia MD Primary Care Provider Kang Piedra MD Unavailable Allergies No known active allergies Medications Medication Sig Dispensed Refills Start Date End Date Status lancets 1 each by 60 each 11 10/06/2020 Active miscIndications: miscellaneous route Type 2 diabetes twice daily. mellitus with hyperglycemia Additional Information Patient not taking. Reported on 06/07/2022 buprenorphine-naloxone (SUBOXONE) Place 2 tablets 60 tablet 0 01/17/2021 Active 2 mg-0.5 mg sublingual under the tongue 3 tabletIndications: Opioid use (three) times a disorder, mild, in sustained day. remission Additional Information Patient not taking. Reason: No longer taking, Reported on 06/07/2022 multivitamin tab Take 1 tablet by 30 tablet 0 01/19/2021 Active tabletIndications: Aspiration mouth daily. into lower respiratory tract Additional Information Patient not taking. Reported on 06/07/2022 atorvastatin (LIPITOR) 40 mg Take 40 mg by mouth daily. 0 Active tablet budesonide (PULMICORT) 0.25 Inhale 0.25 mg by nebulization 0 Active mg/2 mL nebulizer daily. solutionIndications: severe chronic obstructive pulmonary disease umeclidinium-vilanteroL 62.5-25 Inhale by mouth. 0 Active mcg/actuation dsdv loperamide (IMODIUM) 2 mg Take 1 capsule (2 mg) by mouth 0 02/27/2021 Active capsuleIndications: Aspiration every 8 (eight) hours as into lower respiratory tract needed for diarrhea. Buy over the counter Additional Information Patient not taking. Reported on 06/07/2022 megestrol (MEGACE) 40 mg/mL Give 400 mg per G-tube. 0 Active suspension baclofen (LIORESAL) 10 mg Take 1 tablet (10 mg) by 60 tablet 0 05/17/2021 Active tabletIndications: Muscle mouth every 12 (twelve) spasm of back hours as needed for muscle spasms. Additional Information Patient not taking. Reason: No longer taking, Reported on 06/07/2022 pantoprazole (PROTONIX) 40 mg TAKE 1 TABLET(40 MG) 30 tablet 6 07/27/2021 Active EC tabletIndications: BY MOUTH DAILY Aspiration into lower respiratory tract Additional Information Patient not taking. Reported on 06/07/2022 memantine (NAMENDA) 10 mg TAKE 1 TABLET(10 MG) 60 tablet 0 Active tabletIndications: Small cell BY MOUTH TWICE DAILY carcinoma, NOS of upper lobe, lung <Right> acetaminophen-codeine (TYLENOL Take 1 tablet by mouth 30 tablet 0 09/07/2021 Active #3) 300 mg-30 mg every 6 (six) hours as tabletIndications: Neoplasm needed for mild pain related pain (acute) (chronic) or moderate pain (Marj Garza APN). Additional Information Patient not taking. Reason: No longer taking, Reported on 06/07/2022 ipratropium-albuterol (DUO-NEB) Inhale 1 vial (3 mL) by 270 mL 1 10/24/2021 Active 0.5 mg-2.5 mg/3 mL nebulizer nebulization every 6 solutionIndications: (six) hours as needed Pneumocystosis pneumonia for wheezing or shortness of breath. Additional Information Patient not taking. Reported on 06/07/2022 aluminum-magnesium Take 15 mL by mouth every 0 10/24 Active hydroxide-simethicone (MAALOX PLUS) 4 (four) hours as needed 200 mg-200 mg-20 mg/5 mL for indigestion or suspensionIndications: heartburn. Gastroesophageal reflux disease Additional Information Patient not taking. Reason: No longer taking, Reported on 06/07/2022 guaiFENesin (MUCINEX) 600 mg 12 Take 1 tablet (600 14 tablet 0 10/24/2021 Active hr tabletIndications: Pneumonia mg) by mouth every 12 due to other Gram-negative (twelve) hours. bacteria Additional Information Patient not taking. Reported on 06/07/2022 sucralfate (CARAFATE) 100 mg/mL Take 10 mL (1,000 mg) 420 mL 0 10/24/2021 Active suspensionIndications: by mouth 4 (four) Gastroesophageal reflux disease times a day before meals and nightly. Additional Information Patient not taking. Reported on 06/07/2022 QUEtiapine (SEROquel) 25 mg Take 3 tablets (75 mg) 90 tablet 0 10/24/2021 Active tabletIndications: Adjustment by mouth at bedtime. disorder with mixed anxiety and depressed mood Ventolin HFA 90 mcg/actuation Inhale 1 puff by mouth 8 g 0 10/24/2021 Active inhalerIndications: Pneumonia every 6 (six) hours as due to other Gram-negative needed for wheezing or bacteria shortness of breath. Additional Information Patient not taking. Reason: No longer taking, Reported on 06/07/2022 levoFLOXacin (Levaquin) 500 mg Take 1 tablet (500 7 tablet 0 11/02/2021 Active tabletIndications: Upper mg) by mouth daily. respiratory infection, not otherwise specified Additional Information Patient not taking. Reported on 06/07/2022 amoxicillin-clavulanate (Augmentin) Take 1 tablet (875 14 tablet 0 11/13/2021 Active 875 mg-125 mg per mg) by mouth twice tabletIndications: Upper daily. respiratory infection, not otherwise specified Additional Information Patient not taking. Reason: No longer taking, Reported on 06/07/2022 QUEtiapine (SEROquel) Take 1 tablet 60 tablet 0 12/28/2021 Active 25 mg (25 mg) by mouth tabletIndications: every 6 (six) Anxiety disorder due to hours as needed a general medical for non-violent condition agitation (anxiety sleep). midodrine (PROAMATINE) Take 1 tablet (5 0 05/13/2022 Active 5 mg tablet mg) by mouth twice daily. nystatin (MYCOSTATIN) Take 5 mL 0 05/02/2022 Active 100,000 units/mL (500,000 Units) suspension by mouth every 8 (eight) hours. guaiFENesin (MUCINEX) Take 1 tablet 60 tablet 11 10/08/2020 600 mg 12 hr (600 mg) by tabletIndications: mouth every 12 COVID-19, Emphysema (twelve) hours. ipratropium-albuterol USE 1 VIAL VIA 270 mL 1 11/30/2020 Discontinued (DUO-NEB) 0.5 mg-2.5 NEBULIZER (Reorder) mg/3 mL nebulizer 6 HOURS solutionIndications: NEEDED FOR Pneumocystosis WHEEZING OR pneumonia SHORTNESS OF BREATH FOR UP TO 30 DAYS nut.tx.impaired Give 250 mL per 0 11/17/202009/07 Discontinued digestive fxn (peptamen G-tube (three) (Stop Taking at 1.5) enteral tube times a day. Discharge) feedingIndications: Tube feeding diet promethazine Take 12.5 mg by 0 10/24 D iscontinued (PHENERGAN) 12.5 mg mouth every (Stop Taking at tablet (six) hours as Disch arge) needed. ferrous sulfate 325 (65 Take 1 tablet by 0 1 11/13 Discontinued FE) MG EC tablet mouth daily. (Therapy completed) aspirin 81 mg EC tablet Take 81 mg by 0 Discontinued mouth as needed. (St op Taking at Discharge) enoxaparin (Lovenox) 60 Inject 0.5 mL 60 Syringe 2 02/27/202109/07 Discontinued mg/0.6 mL prefilled (50 mg) under (Stop Taking at syringeIndications: the skin every Discharge) Other pulmonary 12 (twelve) embolism with acute cor hours. pulmonale oral mucosal (BIOTENE) Apply 1 application to the m outh or throat as needed for dry mouth. Buy over the counter. 0 02/27/202110/24 Discontinued gelIndications: use as directed (Stop Taking at Aspiration into lower Discharge) respiratory tract senna (SENOKOT) 8.6 mg Take 2 tablets 0 02/27/2021 0 11/13 Discontinued tabletIndications: by mouth 2 (two) (Therapy Aspiration into lower times a day as completed) respiratory tract needed for constipation. Buy over the counter memantine (Namenda) 10 5 mg a day x 1 60 tablet 6 04/23/2021 0 09/07 Discontinued mg tabletIndications: week, then 5 mg /2 022 (Stop Taking at Small cell carcinoma, twice daily x 1 Discharge) NOS of upper lobe, lung week, then 10 mg <Right> every am and 5 mg every pm x 1 week, then 10 mg twice daily for 6 months OLANZapine (ZyPREXA) Take 1 tablet 60 tablet 0 07/02/202108/28 1 Discontinued 2.5 mg (2.5 mg) by (Stop Ta tristen at tabletIndications: mouth 2 (two) Discharge) Insomnia, not otherwise times a day as specified needed for sleep or non-violent agitation. memantine (Namenda) 10 5 mg a day x 1 60 tablet 6 08/13/2021 0 09/07 Discontinued mg tabletIndications: week, then 5 mg /2 022 (Stop Taking at Small cell carcinoma, twice daily x 1 Discharge) NOS of upper lobe, lung week, then 10 mg <Right> every am and 5 mg every pm x 1 week, then 10 mg twice daily for 6 months QUEtiapine (SEROquel) Take 3 tablets 90 tablet 1 08/14/2021 Discontinued 25 mg (75 mg) by mouth (Re order) tabletIndications: at bedtime. Adjustment disorder with mixed anxiety and depressed mood HYDROcodone-acetaminoph Take 1 tablet by 100 tablet 0 08/18/19 22 09/07 Discontinued en ([place]) 5 mg-325 mg mouth every (Stop Taking at per tabletIndications: (six) hours as Discharge) Small cell carcinoma, needed for NOS of upper lobe, lung moderate pain <Right>, Adjustment for up to 30 disorder with mixed days. anxiety and depressed mood amoxicillin-clavulanate Take 1 tablet 6 tablet 0 09/07/2021 0 09/07 Discontinued (AUGMENTIN) 875 mg-125 (875 mg) by mg per mouth every 12 tabletIndications: (twelve) hours Community acquired for 3 days. pneumonia amoxicillin-clavulanate Take 1 tablet 6 tablet 0 09/07/2021 0 09/07 Discontinued (AUGMENTIN) 875 mg-125 (875 mg) by mg per mouth every 12 tabletIndications: (twelve) hours Community acquired for 3 days. pneumonia amoxicillin-clavulanate Take 1 tablet 6 tablet 0 09/07/2021 0 09/10 (AUGMENTIN) 875 mg-125 (875 mg) by mg per mouth every 12 tabletIndications: (twelve) hours Community acquired for 3 days. pneumonia QUEtiapine (SEROquel) Take 1 tablet 30 tablet 0 09/07/2021 Discontinued 25 mg (25 mg) by mouth (Re order) tabletIndications: every 6 (six) Anxiety disorder due to hours as needed a general medical for non-violent condition agitation. amoxicillin-clavulanate Take 1 tablet 10 tablet 0 10/10/2021 0 10/11 Discontinued (Augmentin) 875 mg-125 (875 mg) by (Reorder) mg per mouth twice tabletIndications: daily for 5 Decompensated COPD with days. acute exacerbation amoxicillin-clavulanate Take 1 tablet 14 tablet 0 10/11/2021 0 10/24 Discontinued (Augmentin) 875 mg-125 (875 mg) by (Stop Taking at mg per mouth twice Discharg e) tabletIndications: daily for 7 Upper respiratory days. infection, not otherwise specified fluconazole (Diflucan) Take 1 tablet 4 tablet 0 10/25/2021 200 mg (200 mg) by tabletIndications: mouth daily for Candidal esophagitis 4 days. QUEtiapine (SEROquel) Take 1 tablet 60 tablet 0 12/01/2021 Discontinued 25 mg (25 mg) by mouth (Re order) tabletIndications: every 6 (six) Anxiety disorder due to hours as needed a general medical for non-violent condition agitation (anxiety sleep). amoxicillin-clavulanate Take 1 tablet 20 tablet 0 06/07/2022 1 08/18 (AUGMENTIN) 875 mg-125 (875 mg) by mg per mouth twice tabletIndications: daily for 10 Small cell carcinoma, days. NOS of upper lobe, lung <Right> HYDROcodone-acetaminoph Take 1 tablet by 60 tablet 0 2 07/07 en ([place]) 5 mg-325 mg mouth every 23 per tabletIndications: (eight) hours as Small cell carcinoma, needed for NOS of upper lobe, lung moderate pain <Right> for up to 30 days. 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 Overview: Added automatically from request for rosa maria shah [id number] Family education about pain management 05/08/2021 History of radiation therapy 02/16/2021 Pressure-induced deep tissue damage of other site 02/2021 Overview: Site: Coccyx Sepsis 01/04/2021 Pulmonary embolism 11/17/2020 Stage 1 pressure ulcer of other site 11/14/2020 Overview: Left ear- 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 Tube feeding diet [...] 08/10/2020 Decompensated COPD with acute exacerbation 07/30/2020 [facility] current use of opiate analgesic 07/30/2020 Small [...] induced diabetes mellitus with hyperglycemia 09/19/2020 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 09/19/2020 09/04/2021 Pneumocystosis pneumonia 09/04/2020 09/04/2021 Cytomegalovirus infection 09/04/2020 09/04/2021 Diarrhea 08/21/2020 09/04/2021 Aspiration into lower respiratory tract 08/10/2020 09/04/2021 Overview: Added automatically from request for rosa maria shah [id number] COVID-19 07/29/2020 09/04/2021 Amaurosis fugax 10/26/2017 09/04/2021 Cancer-related fatigue 09/04/2021 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 Tomography - chest abnormal 09/04/2021 Encounters Date Type Specialty Care Team Description 08/29/2022 Telephone Thoracic Liz Akhtar, Shortness o f Breath Medicine RN (/) 06/19/2022 Orders Only Thoracic Henrique Plasencia MD 06/07/2022 Follow-Up Thoracic Henrique Plasencia cell c Edson viera MD NOS of upper lo be, lung <Right> 06/07/2022 Hospital Encounter Lab Олег Clark benita l carcinomaStella ANP NOS of upper lobe, lung <Right> 06/07/2022 Ancillary Procedure Radiology Олег Clark ce ll carcinomaStella ANP NOS of upper lobe, lung <Right> 06/07/2022 Orders Only Thoracic Amber, Medicine Stella, ANP 06/07/2022 Orders Only Thoracic Henrique Plasencia MD 06/07/2022 Travel 05/09/2022 Telephone Thoracic Surgery Inez Sanon, RN 05/03/2022 Orders Only Thoracic Amber, Small cell carc inoma, Medicine Stella, ANP NOS of upper lobe, lung <Right> (P rimary Dx) 05/03/2022 Telephone Thoracic Zulema Cedillo RN Medicine 12/28/2021 Nurse Triage Constantine Willis NP 12/28/2021 Documentation Thoracic Henrique Plasencia MD 12/20/2021 Telephone Lolita Gonzales, ELLA 12/11/2021 Telephone Radiation Bibiana Pedersen, slunk skin curer 12/05/2021 Telephone Thoracic Kasie Mehta Medicine D, RN 12/01/2021 Nurse Triage Erin Olivares, RN 11/13/2021 Orders Only Thoracic Amber, Upper respirato ry Medicine Stella, MADALYN infection, no t otherwise speci fied (Primary Dx) 11/13/2021 Telephone Thoracic Daisy Shaffer Medicine Veronique, RN 11/02/2021 Orders Only Thoracic Fito Gutierres Upper respirato ry Medicine MD Kang infection, not otherwise speci fied (Primary Dx) 11/02/2021 Nurse Triage Karishma Chu RN 10/24/2021 Nurse Triage Arcadio Paz, ELLA 10/19/2021 Surgery Endoscopy Edwige Leonard UPPER GASTROI NTESTINAL MD Ernesto ENDOSCOPY OF ESOPHAGUS, STOM ACH, AND DUODENUM WI TH BIOPSY 10/19/2021 Anesthesia Event Endoscopy Jenise Degroot MD Silva, Jason M, CRNA 10/18/2021 Prep for Surgery Endoscopy Shena Valladares MD (Primary Dx) 10/15/2021 Hospital Encounter GIM/Phase 1 Verónica Thakkar MD Pleuritic pain (Primary Dx); - [place], [place], Small cell c arcinoma of lung; 10/24/2021 DO Decompensated COPD with acute exacerbati on; Felix Bazzi MD Swallowing painful; Tolentino, Son V., Pneumocystos is pneumonia; Adjustment disorder with mixed anxiety a nd depressed mood; Michelle Vaughan Gastroesoph ageal reflux disease; MD Lilly Pneumonia due t o other Gram-negative bacteria; Failure to thri ve; Candidal esopha gitis 10/15/2021 Travel 10/11/2021 Orders Only Thoracic Amber, Upper respirato ry infection, not otherwise specified (Primary Dx); Medicine MADALYN Douglas Decompensated COPD with acute exacerbation 10/10/2021 Orders Only Thoracic Shantal Patiño, Decompensate d COPD Medicine MD Deshawn with acute exacerbation (P rimary Dx) 10/10/2021 Nurse Triage Stella Moran RN 10/10/2021 Telephone Thoracic Ileana Thrasher RN 09/07/2021 Travel 09/03/2021 Hospital Encounter Uro/Ortho/GI Verónica Thakkar MD Pleuritic pain (Primary Dx); Aditya Farmer MD Dyspnea; 09/07/2021 Enriqueta Casiano, Small cell carcinoma of lung; Community acqui red pneumonia; Neoplasm relate d pain (acute) (chronic); Anxiety disorde r due to a general medical condition 09/03/2021 Travel 09/03/2021 Telephone Thoracic Michael Lopez Cough; [facility] [place], RN Breath after 08/29/2021 Immunizations Name Administration Dates Next Due Bamlanivimab 07/29/2020 () Influenza Split High Dose 03/29/2020 Preservative Free IM Zoster Recombinant 03/29/2020 remdesivir 08/22/2020, 08/22/2020, 08/21/2020, 08/20/2020, 08/19/2020, 08/18/2020, 08/03/2020, 08/02/2020, 08/02/2020, 08/01/2020, 07/31/2020, 07/30/2020 Surgical History Surgery Date Site/Laterality Comments ID EGD BALLOON DILATION 09/29/2020 Esophagus/N/A Procedur e: UPPER ESOPHAGUS <30 MM DIAM GASTROINTE STINAL ENDOSCOPY WITH BALLOON DILATION OF ESOPHAGUS; Surgeon: Owen real MD; Location: MAIN E NDOSCOPY; Service: GASTROE NTEROLOGY ID EGD PERCUTANEOUS 09/29/2020 Abdomen/N/A Procedure: U PPER PLACEMENT GASTROSTOMY TUBE GASTR OINTESTINAL ENDOSCOPY WITH DIRECTED PLACEME NT OF PERCUTANEOUS (PE G) GASTROSTOMY TUBE; Surgeon: Desiree Leonard MD; Location: MAIN E NDOSCOPY; Service: GASTROE NTEROLOGY ID [id number]/BRNCL ALVEOLAR 10/23/2020 N/A Proc edure: FLEXIBLE LAVAGE BRONCHOSCOPY WIT H BRONCHIAL ALVEOLAR LAVAGE; Surgeon: Krys Brewer MD; Lo cation: MAIN PULM PROC; Servi ce: PULMONARY ID PERQ REPLACEMENT GTUBE 05/21/2021 N/A Proced ure: REPLACEMENT OF NOT REQ REVJ GSTRST TRC GASTROST RANDEE TUBE, PERCUTANEOUS, INCLUDES REMOVAL , WHEN PERFORMED, WITHO UT IMAGING OR ENDOSCOPIC DENNIS NCE; NOT REQUIRING REVISI ON OF GASTROSTOMY TRAC T; Surgeon: Neha Tobin MD ; Location: MAIN ENDOSCOPY; Service: GASTROENTEROLOGY ID EGD TRANSORAL BIOPSY 10/19/2021 Esophagus/N/A Procedur e: [...] Tobacco Use Types Packs/Day Years Used Date Smoking Tobacco: Former Cigarettes 1.5 1969 - 2019 Smokeless Tobacco: Never Alcohol Use Standard Drinks/Week Comments Not Currently 0 (1 standard drink = 0.6 oz pure .5 gal zachary of vodka daily 15 years alcohol) ago Sex Assigned at Date Recorded Not on file Job Start Date Occupation Industry Not on file Not on file Not on file Obstetrics History Last Filed Vital Signs Vital Sign Reading Time Taken Comments Blood Pressure 109/67 06/07/2022 7:58 AM [employer]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 Pulse 64 06/07/2022 7:58 AM 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 Temperature 36.9 C (98.4 F) 10/24/2021 11:48 AM CDT Respiratory Rate 18 06/07/2022 7:58 AM [employer]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 Oxygen Saturation 100% 06/07/2022 7:58 AM [employer]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 Inhaled Oxygen Concentration - - Weight 50 kg (110 lb 3.7 oz) 06/07/2022 7:11 AM 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 Height 163 cm (5' 4.17") 06/07/2022 7:11 AM 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 Body Mass Index 18.82 06/07/2022 7:11 AM [employer]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 Plan of Treatment Date Type Specialty Care Team Description 09/06/2022 Ancillary Procedure Radiology Fr yaron Plasencia MD [address] [place], [place] [address] (Wo rk) 09/06/2022 Appointment Lab Henrique Plasencia MD [address] [place], [place] [address] (Wo rk) 09/06/2022 Follow-Up Thoracic Medicine John Plasencia MD [address] [place], [place] [address] (Wo rk) Health Maintenance Due Date Last Done Comments COVID-19 Vaccination (#1) 05/25/1956 Procedures Procedure Name Priority Date/Time Associated Comments Diagnosis ELECTROLYTE PANEL Routine 06/07/2022 9:54 Small cell Results for this AM 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 carcinoma, NOS of procedure are in upper lobe, lung the results <Right> section. FRACTIONATED BILIRUBIN Routine 06/07/2022 9:54 Small cell Re sults for this AM 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 carcinoma, NOS of procedure are in upper lobe, lung the results <Right> section. TOTAL PROTEIN Routine 06/07/2022 9:54 Small cell Results for this AM 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 carcinoma, NOS of procedure are in upper lobe, lung the results <Right> section. ASPARTATE Routine 06/07/2022 9:54 Small cell Results for this AMINOTRANSFERASE AM 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 carcinoma, NOS of proced ure are in upper lobe, lung the results <Right> section. ALANINE AMINOTRANSFERASE Routine 06/07/2022 9:54 Small cell Results for this AM 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 carcinoma, NOS of procedure are in upper lobe, lung the results <Right> section. ALKALINE PHOSPHATASE Routine 06/07/2022 9:54 Small cell Resu lts for this AM 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 carcinoma, NOS of procedure are in upper lobe, lung the results <Right> section. ALBUMIN LEVEL Routine 06/07/2022 9:54 Small cell Results for this AM 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 carcinoma, NOS of procedure are in upper lobe, lung the results <Right> section. CALCIUM LEVEL TOTAL Routine 06/07/2022 9:54 Small cell Resul ts for this AM 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 carcinoma, NOS of procedure are in upper lobe, lung the results <Right> section. .GLOMERULAR FILTRATION Routine 06/07/2022 9:54 Small cell Re sults for this RATE AM 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 carcinoma, NOS of procedure are in upper lobe, lung the results <Right> section. SERUM CREATININE Routine 06/07/2022 9:54 Small cell Results for this AM 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 carcinoma, NOS of procedure are in upper lobe, lung the results <Right> section. BLOOD UREA NITROGEN Routine 06/07/2022 9:54 Small cell Resul ts for this AM 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 carcinoma, NOS of procedure are in upper lobe, lung the results <Right> section. GLUCOSE LEVEL Routine 06/07/2022 9:54 Small cell Results for this AM 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 carcinoma, NOS of procedure are in upper lobe, lung the results <Right> section. MANUAL DIFFERENTIAL Routine 06/07/2022 9:54 Small cell Resul ts for this AM 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 carcinoma, NOS of procedure are in upper lobe, lung the results <Right> section. Results CBC Routine 06/07/2022 9:54 Small cell Results for this AM 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 carcinoma, NOS of procedure are in upper lobe, lung the results <Right> section. URIC ACID Routine 06/07/2022 9:54 Small cell Results for this AM 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 carcinoma, NOS of procedure are in upper lobe, lung the results <Right> section. THYROID STIMULATING Routine 06/07/2022 9:54 Small cell Resul ts for this HORMONE AM 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 carcinoma, NOS of procedure are in upper lobe, lung the results <Right> section. TOTAL T3 Routine 06/07/2022 9:54 Small cell Results for this AM 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 carcinoma, NOS of procedure are in upper lobe, lung the results <Right> section. MAGNESIUM LEVEL Routine 06/07/2022 9:54 Small cell Results f or this AM 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 carcinoma, NOS of procedure are in upper lobe, lung the results <Right> section. FREE THYROXINE Routine 06/07/2022 9:54 Small cell Results fo r this AM 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 carcinoma, NOS of procedure are in upper lobe, lung the results <Right> section. COMPREHENSIVE METABOLIC Routine 06/07/2022 9:54 Small cell PANEL AM 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 carcinoma, NOS of upper lobe, lung <Right> COMPLETE BLOOD COUNT W/ Routine 06/07/2022 9:54 Small cell DIFFERENTIAL AM 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 carcinoma, NOS of upper lobe, lung <Right> PETCT SUBSEQUENT Routine 06/07/2022 9:27 Small cell Results for this TREATMENT STRATEGY AM 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 carcinoma, NOS of proc edure are in upper lobe, lung the results <Right> section. FRACTIONATED BILIRUBIN AM 10/24/2021 5:53 Re sults [...] Now 10/16/2021 8:05 Re sults for this IS SUPPORT ANALYST SWAB AM CDT procedure are i n [...] 09/05/2021 5:48 Re sults for this AM 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 procedure are i n the results section. TOTAL PROTEIN AM 09/05/2021 5:48 Results for this AM 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 procedure are i n the results section. ASPARTATE AM 09/05/2021 5:48 Results for this AMINOTRANSFERASE AM 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 procedure a re in the results section. ALANINE AMINOTRANSFERASE AM 09/05/2021 5:48 Results for this AM 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 procedure are i n the results section. ALKALINE PHOSPHATASE AM 09/05/2021 5:48 Resu lts for this AM 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 procedure are i n the results section. ALBUMIN LEVEL AM 09/05/2021 5:48 Results for this AM 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 procedure are i n the results section. CALCIUM LEVEL TOTAL AM 09/05/2021 5:48 Resul ts for this AM 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 procedure are i n the results section. .GLOMERULAR FILTRATION AM 09/05/2021 5:48 Re sults for this RATE AM 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 procedure are i n the results section. SERUM CREATININE AM 09/05/2021 5:48 Results for this AM 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 procedure are i n the results section. ELECTROLYTE PANEL AM 09/05/2021 5:48 Results for this AM 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 procedure are i n the results section. BLOOD UREA NITROGEN AM 09/05/2021 5:48 Resul ts for this AM 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 procedure are i n the results section. GLUCOSE LEVEL AM 09/05/2021 5:48 Results for this AM 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 procedure are i n the results section. MANUAL DIFFERENTIAL AM 09/05/2021 5:48 Resul ts for this AM 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 procedure are i n the results section. Results CBC AM 09/05/2021 5:48 Results for this AM 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 procedure are i n the results section. PHOSPHORUS LEVEL AM 09/05/2021 5:48 Results for this AM 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 procedure are i n the results section. MAGNESIUM LEVEL AM 09/05/2021 5:48 Results f or this AM 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 procedure are i n the results section. COMPREHENSIVE METABOLIC AM 09/05/2021 5:48 PANEL AM FOR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 COMPLETE BLOOD COUNT W/ AM 09/05/2021 5:48 DIFFERENTIAL AM FOR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 STREPTOCOCCAL URINE Routine 09/04/2021 1:38 Resul ts for this ANTIGEN PATH REVIEW PM FOR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 procedur e are in the results section. LEGIONELLA URINE ANTIGEN Routine 09/04/2021 1:38 Results for this PATH REVIEW PM FOR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 procedure are i n the results section. LEGIONELLA URINE ANTIGEN Now 09/04/2021 1:38 Results for this PM FOR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 procedure are i n the results section. STREPTOCOCCUS PNEUMONIAE Now 09/04/2021 1:38 Results for this URINE ANTIGEN PM FOR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 procedure are in the results section. LOWER RESPIRATORY Now 09/04/2021 1:36 Results for this CULTURE W/ GRAM STAIN PM [employer]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 proced ure are in the results section. CALCIUM LEVEL TOTAL AM 09/04/2021 3:51 Resul ts for this AM 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 procedure are i n the results section. .GLOMERULAR FILTRATION AM 09/04/2021 3:51 Re sults for this RATE AM FOR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 procedure are i n the results section. SERUM CREATININE AM 09/04/2021 3:51 Results for this AM 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 procedure are i n the results section. ELECTROLYTE PANEL AM 09/04/2021 3:51 Results for this AM 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 procedure are i n the results section. BLOOD UREA NITROGEN AM 09/04/2021 3:51 Resul ts for this AM 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 procedure are i n the results section. GLUCOSE LEVEL AM 09/04/2021 3:51 Results for this AM 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 procedure are i n the results section. TROPONIN T Routine 09/04/2021 3:51 Results for this AM [employer]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 procedure are i n the results section. PHOSPHORUS LEVEL AM 09/04/2021 3:51 Results for this AM FOR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 procedure are i n the results section. MAGNESIUM LEVEL AM 09/04/2021 3:51 Results f or this AM FOR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 procedure are i n the results section. BASIC METABOLIC PANEL, AM 09/04/2021 3:51 CALCIUM TOTAL AM FOR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 CKMB Now 09/03/2021 9:49 Results for this PM [employer]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 procedure are i n the results section. CREATINE KINASE Now 09/03/2021 9:49 Results f or this PM 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 procedure are i n the results section. TROPONIN T Now 09/03/2021 9:49 Results for this PM [employer]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 procedure are i n the results section. CT CHEST PULMONARY Routine 09/03/2021 9:46 Result s for this EMBOLISM W CONTRAST PM 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 procedur e are in the results section. XR CHEST 1 VW Routine 09/03/2021 5:40 Results for this PM 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 procedure are i n the results section. RESPIRATORY VIRAL Now 09/03/2021 5:14 Results for this MULTIPLEX PCR PANEL, PM 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 procedu re are in NASOPHARYNGEAL SWAB the resu lts section. FRACTIONATED BILIRUBIN Now 09/03/2021 3:54 Re sults for this PM 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 procedure are i n the results section. TOTAL PROTEIN Now 09/03/2021 3:54 Results for this PM 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 procedure are i n the results section. ASPARTATE Now 09/03/2021 3:54 Results for this AMINOTRANSFERASE PM 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 procedure a re in the results section. ALANINE AMINOTRANSFERASE Now 09/03/2021 3:54 Results for this PM 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 procedure are i n the results section. ALKALINE PHOSPHATASE Now 09/03/2021 3:54 Resu lts for this PM 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 procedure are i n the results section. ALBUMIN LEVEL Now 09/03/2021 3:54 Results for this PM 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 procedure are i n the results section. CALCIUM LEVEL TOTAL Now 09/03/2021 3:54 Resul ts for this PM 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 procedure are i n the results section. .GLOMERULAR FILTRATION Now 09/03/2021 3:54 Re sults for this RATE PM [employer]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 procedure are i n the results section. SERUM CREATININE Now 09/03/2021 3:54 Results for this PM 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 procedure are i n the results section. ELECTROLYTE PANEL Now 09/03/2021 3:54 Results for this PM 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 procedure are i n the results section. BLOOD UREA NITROGEN Now 09/03/2021 3:54 Resul ts for this PM 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 procedure are i n the results section. GLUCOSE LEVEL Now 09/03/2021 3:54 Results for this PM 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 procedure are i n the results section. MANUAL DIFFERENTIAL STAT 09/03/2021 3:54 Resul ts for this PM 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 procedure are i n the results section. Results CBC STAT 09/03/2021 3:54 Results for this PM 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 procedure are i n the results section. TROPONIN T Now 09/03/2021 3:54 Results for this PM 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 procedure are i n the results section. NT PRO BNP Now 09/03/2021 3:54 Results for this PM 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 procedure are i n the results section. PHOSPHORUS LEVEL Now 09/03/2021 3:54 Results for this PM 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 procedure are i n the results section. MAGNESIUM LEVEL Now 09/03/2021 3:54 Results f or this PM 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 procedure are i n the results section. COMPREHENSIVE METABOLIC Now 09/03/2021 3:54 PANEL PM FOR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 COMPLETE BLOOD COUNT W/ Now 09/03/2021 3:54 DIFFERENTIAL PM FOR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 EKG, 12-LEAD (PORTABLE) STAT 09/03/2021 after 08/29/2021 Results (ABNORMAL) .Serum Creatinine (06/07/2022 9:54 AM FOR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)Only the most recent of13 resultswithin the time period is included. athologist Signature Creatinine 0.66 (L) 0.67 - 1.17 [facility] mg/dL Comment: Testing Performed at [facility], [address] [facility], [address], [place] [address] Specimen Anatomical Collection Method Collection Time Receive d Time (Source) Location / / Volume Laterality Blood 06/07/2022 9:54 AM 2 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 10:05 AM FOR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 Stella Clark ANP LAB BLOOD ORDERABLES Performing Organization Address City/State/ZIP Code Phon e Number [facility] [address] [place] [address]. [place] [address] [address] (ABNORMAL) .CBC (06/07/2022 9:54 AM FOR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)Only the most recent of12 resultswithin the time period is included. athologist Signature WBC 6.7 4.0 - 11.0 [facility] K/uL RBC 3.87 (L) 4.50 - 6.00 [facility] M/uL Hgb 11.3 (L) 14.0 - 18.0 [facility] gm/dL Comment: As part of CBC or as an individ ual orderable testing performed at [facility], [address] [facility] , [address], [place] [address] Hct 35.1 (L) 40.0 - 54.0 % [facility] Comment: As part of CBC or as an individ ual orderable testing performed at [facility], [address] [place] [address] , [address], [place] [address] MCV 91 82 - 98 fL [facility] MCH 29.2 27.0 - 31.0 pg [facility] MCHC 32.2 31.0 - 36.0 gm/dL [facility] RDW-SD 52.4 (H) 35.1 - 46.3 fL [facility] RDW-CV 15.8 (H) 12.0 - 15.5 % [facility] Platelet count 304 140 - 440 K/uL [facility] Comment: As part of CBC or as an individ ual orderable testing performed at [facility], [facility] [facility] , [address], [place] [address] MPV 9.7 4.0 - 10.4 fL [facility] INRBC 0.0 <=0.0 % [facility] Comment: The INRBC (instrument NRBC) value reflec ts the enumeration of nucleated red blood cells contained i n a 200uL sample of whole blood analyzed by the instrumen t. This value may differ from the NRBC value reported in a manual differential, which is based on a 100 cell differentia l. As part of CBC testing performed at [place] [id number] [facility], [address], [place] [address] Specimen Anatomical Collection Method Collection Time Receive d Time (Source) Location / / Volume Laterality Blood 06/07/2022 9:54 AM FOR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 10:04 AM FOR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 Stella Clark [facility] LAB BLOOD ORDERABLES Performing Organization Address City/State/ZIP Code Phon e Number [address] [place] [address] [address] Glomerular Filtration Rate (06/07/2022 9:54 AM FOR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)Only the most recent of13 resultswithin the time period is included. athologist Signature eGFR 103 >=60 [facility] mL/min/1.73 sq. m Comment: The eGFRcr is calculated with the 2020 KD-EPI creatinine equation using creatinine, patient's age, and sex for adults 18 years of age and older. Other factors, especially muscle mass, may affect accuracy and need to be considered. According to the Kidney Disease: Improvi ng Global Outcomes (KDIGO) CKD Work Group 2012 Clinical Practice Guideline, chronic kidney disease (CKD) is defined as the abnormalities of kidney structure or function, present for more than 3 months, with implications for health. CKD should be c lassified by cause, GFR category, and albuminuria category. KDIGO guidelines provide the following GFR categories Stage Description GFR mL/min/1.73 m2 G1* Normal or high >= 90 G2* Mildly decreased 60-89 G3a Mildly to moderately decreased 45-59 G3b Moderately to severely decreased 30- 44 G4 Severely decreased 15-29 G5 Kidney failure <15 *In the absence of evidence of kidney da mage, neither G1 nor G2 fulfill criteria for CKD. Testing Performed at [facility] Assistant Manager Bilingual [facility], [address] [place] [address], [address], [place] [address] Specimen Anatomical Collection Method Collection Time Receive d Time (Source) Location / / Volume Laterality Blood 06/07/2022 9:54 AM 2 FOR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 10:05 AM FOR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 Stella Clark ANP LAB BLOOD ORDERABLES Performing Organization Address City/State/ZIP Code Phon e Number [address] [place] [address] [address] Fractionated Bilirubin (06/07/2022 9:54 AM FOR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)Only the most recent of12 results within the time period is included. athologist Signature Bili Total 0.4 <=1.2 mg/dL [facility] Comment: Indocyanine Green (ICG) may cause falsel y elevated bilirubin results. Total and direct bilirubin must not be measured from samples containing indocyanine green. False elevation of total bilirubin can b e seen in patients with IgG concentrations above 28 g/L. Testing Performed at [facility], [facility] [facility], [place] [address] Bili Direct <0.2 <=0.3 mg/dL [facility] Comment: Indocyanine Green (ICG) may cause falsel y elevated bilirubin results. Total and direct bilirubin must not be measured from samples containing indocyanine green. Testing Performed at [facility], [address] [facility], [address], [place] [id number] Bili Indirect See Note 0.0 - 0.9 mg/dL [facility] Comment: Unable to calculate Indirect Bilirubin r esult due to some parameters are outside reportable range Testing Performed at [facility], [address] [place] [address], [address], [place] [address] Specimen Anatomical Collection Method Collection Time Receive d Time (Source) Location / / Volume Laterality Blood 06/07/2022 9:54 AM FOR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 10:05 AM FOR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 Stella Clark [facility] LAB BLOOD ORDERABLES Performing Organization Address City/State/ZIP Code Phon e Number [address] [place] [address] [address] (ABNORMAL) Differential (06/07/2022 9:54 AM FOR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)Only the most recent of12 resultswithin the time period is included. athologist Signature Neutrophil % 53.5 42.0 - 66.0 [facility] % Comment: As part of Differential perform ed at [facility], [address] [place] [address], [address], [place] [address] Lymphocyte % 38.2 24.0 - 44.0 % [facility] Monocyte % 7.0 2.0 - 7.0 % [facility] Eosinophil % 0.7 (L) 1.0 - 4.0 % [facility] Basophil % 0.3 0.0 - 1.0 % [facility] IGRE % 0.3 0.0 - 0.4 % [facility] Comment: IGRE % count includes Metamyelocytes, My elocytes, and Promyelocytes. As part of Differential performed at [facility], [facility], [address], [place] [address] Neutrophil Abs 3.56 1.70 - 7.30 K/uL [facility] Lymphocyte Abs 2.55 1.00 - 4.80 K/uL [facility] Monocyte Abs 0.47 0.08 - 0.70 K/uL [facility] Eosinophil Abs 0.05 0.04 - 0.40 K/uL [facility] Basophil Abs 0.02 0.00 - 0.10 K/uL [facility] IG Abs 0.02 0.00 - 0.04 K/uL [facility] Specimen Anatomical Collection Method Collection Time Receive d Time (Source) Location / / Volume Laterality Blood 06/07/2022 9:54 AM 2 FOR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 10:04 AM FOR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 Stella Clark ANP LAB BLOOD ORDERABLES Performing Organization Address City/[facility]/ZIP [facility] e Number [facility] [address] [place] [address]. [place] [address] [address] Uric Acid (06/07/2022 9:54 AM FOR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) P athologist Signature Uric Acid 5.3 3.4 - 7.0 [facility] mg/dL Comment: Testing Performed at [facility] Lab [facility], [address] [place] [address], [address], [place] [address] Specimen Anatomical Collection Method Collection Time Receive d Time (Source) Location / / Volume Laterality Blood 06/07/2022 9:54 AM 2 FOR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 10:05 AM FOR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 Stella Clark ANP LAB BLOOD ORDERABLES Performing Organization Address City/[facility] e Number [facility] [address] [place] [address]. [place] [address] [address] (ABNORMAL) BUN (06/07/2022 9:54 AM FOR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)Only the most recent of13 resultswithin the time period is included. P athologist Signature BUN 5 (L) 6 - 23 mg/dL [facility] Comment: Testing Performed at [facility], [address] [facility], [address], [place] [address] Specimen Anatomical Collection Method Collection Time Receive d Time (Source) Location / / Volume Laterality Blood 06/07/2022 9:54 AM 2 FOR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 10:05 AM FOR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 Stella Clark ANP LAB BLOOD ORDERABLES Performing Organization Address City/State/ZIP Code Phon e Number [facility] [address] [facility] [place] [place] [address] [address] T3 (06/07/2022 9:54 AM FOR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) P athologist Signature T3 Total 153 80 - [address] [facility] ng/dL [facility] Specimen Anatomical Collection Method Collection Time Receive d Time (Source) Location / / Volume Laterality Blood 06/07/2022 9:54 AM 2 FOR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 10:53 AM FOR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 Stella Clark ANP LAB BLOOD ORDERABLES Performing Organization Address City/[facility]/ZIP Code Phon e Number [facility] CANCER Unless otherwise noted, [place] [address] CENTER all lab tests performed by: Division of Pathology and Laboratory Medicine [address] [place] ALT (06/07/2022 9:54 AM FOR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)Only the most recent of12 resultswithin the time period is included. athologist Signature ALT 6 <=41 U/L [facility] Comment: Testing Performed at [facility], [address] [facility], [address], [place] [address] Specimen Anatomical Collection Method Collection Time Receive d Time (Source) Location / / Volume Laterality Blood 06/07/2022 9:54 AM 2 FOR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 10:05 AM FOR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 Stella Clark ANP LAB BLOOD ORDERABLES Performing Organization Address City/[facility]/ZIP Code Phon e Number [facility] [address] [facility] [place] [place] [address] [address] Aspartate Aminotransferase (06/07/2022 9:54 AM FOR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)Only the most recent of12 resultswithin the time period is included. P athologist Signature AST 14 <=40 U/L [facility] Comment: Testing Performed at [facility], [address] [facility], [address], [place] [phone] Specimen Anatomical Collection Method Collection Time Receive d Time (Source) Location / / Volume Laterality Blood 06/07/2022 9:54 AM 2 FOR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 10:05 AM FOR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 Stella Clark ANP LAB BLOOD ORDERABLES Performing Organization Address City/[facility]/ZIP Code Phon e Number [facility] [address] [facility] [facility] [place] [address] [address] TSH (06/07/2022 9:54 AM FOR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) athologist Signature TSH 0.65 0.27 - 4.20 [facility] mcunit/mL Comment: Note: New Methodology and Reference Ra nge change effective 10/16/2017 at 1400 Testing Performed at [facility] Lab Assistant Manager Bilingual [facility], [address] [facility], [address], [place] [address] Specimen Anatomical Collection Method Collection Time Receive d Time (Source) Location / / Volume Laterality Blood 06/07/2022 9:54 AM 2 FOR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 10:05 AM FOR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 Stella Clark ANP LAB BLOOD ORDERABLES Performing Organization Address [facility]/ZIP Code Phon e Number [facility] [address] [place] [address] [address] Free T4 (06/07/2022 9:54 AM FOR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) athologist Signature T4 Free 1.01 0.93 - 1.70 [facility] ng/dL Comment: Testing Performed at [facility], [address] [facility], [address], [place] [address] Specimen Anatomical Collection Method Collection Time Receive d Time (Source) Location / / Volume Laterality Blood 06/07/2022 9:54 AM 2 FOR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 10:05 AM FOR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 Stella Clark ANP LAB BLOOD ORDERABLES Performing Organization Address City/[facility]/ZIP Code Phon e Number [facility] [address] [facility] [place] [place] [address] [address] Total Protein (06/07/2022 9:54 AM FOR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)Only the most recent of12 resultswithin the time period is included. athologist Signature Total Protein 7.0 6.4 - 8.3 [facility] g/dL Comment: Testing Performed at [facility] Am [facility], [address] [facility], [address], [place] [address] Specimen Anatomical Collection Method Collection Time Receive d Time (Source) Location / / Volume Laterality Blood 06/07/2022 9:54 AM 2 FOR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 10:05 AM FOR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 Stella Clark ANP LAB BLOOD ORDERABLES Performing Organization Address [facility] Phon e Number [facility] [address] [place] [place] [address] [address] Alkaline Phosphatase (06/07/2022 9:54 AM FOR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)Only the most recent of12 results within the time period is included. athologist Signature Alk Phos 91 40 - 129 U/L [facility] Comment: Testing Performed at [facility], [address] [facility], [address], [place] [address] Specimen Anatomical Collection Method Collection Time Receive d Time (Source) Location / / Volume Laterality Blood 06/07/2022 9:54 AM 2 FOR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 10:05 AM FOR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 Stella Clark ANP LAB BLOOD ORDERABLES Performing Organization Address [facility] e Number [facility] [address] [facility] [place] [place] [address] [address] Magnesium Level (06/07/2022 9:54 AM FOR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)Only the most recent of13 resultswithin the time period is included. athologist Signature Magnesium 1.9 1.6 - 2.6 [facility] mg/dL Comment: Testing Performed at [facility], [address] [facility], [address], [place] [address] Specimen Anatomical Collection Method Collection Time Receive d Time (Source) Location / / Volume Laterality Blood 06/07/2022 9:54 AM 2 FOR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 10:05 AM FOR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 Stella Clark ANP LAB BLOOD ORDERABLES Performing Organization Address [facility] e Number [facility] [address] [place] [address] [address] Glucose Level (06/07/2022 9:54 AM FOR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)Only the most recent of13 resultswithin the time period is included. P athologist Signature Glucose Level 96 70 - 99 [facility] mg/dL Comment: Effective 01/24/16, the glucose reference intervals have been updated based on [place] [employer] guidelines (Standards of Medical Care in Diabetes 2016. Diabetes Care 2016; 39: S13-S22). Fasting blood glucose: Normal: 70-99 mg/dL Impaired fasting glucose (increased risk for diabetes or pre-diabetes): 100- 125 mg/dL Diabetes mellitus: >/=126 mg/dL Random blood glucose: Normal: 70-199 mg/dL Note: Random glucose >100 mg/dL is assoc iated with increased risk for diabetes Testing Performed at [facility] Lab Assistant Manager Bilingual [facility], [facility] [facility], [address], [place] [address] Specimen Anatomical Collection Method Collection Time Receive d Time (Source) Location / / Volume Laterality Blood 06/07/2022 9:54 AM 2 FOR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 10:05 AM FOR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 Stella Clark ANP LAB BLOOD ORDERABLES Performing Organization Address City/[facility] e Number [facility] [address] [place] [address] [address] Calcium Level (06/07/2022 9:54 AM FOR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)Only the most recent of13 resultswithin the time period is included. P athologist Signature Calcium Lvl 9.3 8.4 - 10.2 [facility] mg/dL Comment: Testing Performed at [facility] Lab [facility], [address] [facility], [address], [place] [address] Specimen Anatomical Collection Method Collection Time Receive d Time (Source) Location / / Volume Laterality Blood 06/07/2022 9:54 AM 2 FOR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 10:05 AM FOR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 Stella Clark ANP LAB BLOOD ORDERABLES Performing Organization Address City/[facility] e Number [facility] [address] [place] [place] [address] [address] Albumin Level (06/07/2022 9:54 AM FOR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)Only the most recent of12 resultswithin the time period is included. P athologist Signature Albumin Lvl 3.8 3.5 - 5.2 [facility] gm/dL Comment: Testing Performed at [facility], [address] [facility] [facility], [address], [place] [address] Specimen Anatomical Collection Method Collection Time Receive d Time (Source) Location / / Volume Laterality Blood 06/07/2022 9:54 AM 2 FOR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 10:05 AM FOR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 Stella Clark ANP LAB BLOOD ORDERABLES Performing Organization Address City/State/ZIP Code Phon e Number [facility] [address] [facility] [place] [address] [address] Electrolyte Panel (06/07/2022 9:54 AM FOR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)Only the most recent of13 results within the time period is included. P athologist Signature Sodium Lvl 138 136 - 145 [facility] mEq/L Comment: Testing Performed at [facility], [address] [facility], [address], [place] [address] Potassium Lvl 3.8 3.5 - 5.1 mEq/L [facility] Comment: Testing Performed at [facility] Am [facility], [address] [address], [place] [address] Chloride 103 98 - 107 mEq/L [facility] Comment: Testing Performed at [facility] Am bul[facility] Care [facility], [address] [facility], [address], [place] [id number] CO2 25 22 - 29 mEq/L [facility] Comment: Testing Performed at [facility] Am bulatory Care [facility], [address] [facility], [address], [place] [id number] Anion Gap 10 4 - 14 mEq/L [facility] Comment: Testing Performed at [facility] Am [facility], [address] [facility] [address], [place] [address] Specimen Anatomical Collection Method Collection Time Receive d Time (Source) Location / / Volume Laterality Blood 06/07/2022 9:54 AM 2 FOR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 10:05 AM FOR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 Stella Clark ANP LAB BLOOD ORDERABLES Performing Organization Address City/State/ZIP Code Phon e Number [facility] [address] [facility] [place] [address] [address] PETCT Subsequent Treatment Strategy (06/07/2022 9:27 AM FOR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) Anatomical Region Laterality Modality Whole Body Positron Emission To mography (PET) Specimen (Source) Anatomical Collection Method Collection Time Re ceived Time Location / / Volume Laterality 06/07/2022 11:01 AM FOR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 Impressions 06/07/2022 11:46 AM FOR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 1. No convincing evidence of FDG-avid small cell lung cancer. 2. Bilateral irregular lung opacities wi th some regions demonstrating associated activity show some change in anatomic configuration when compared to 10/15/2021 CT and are compatible with a chronic waxing/waning infectious or inflammatory process. Narrative 06/07/2022 11:46 AM FOR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 FULL RESULT: Examination: FDG PET/CT, 06/07/2022 9:27 AM Clinical History: 66 year old male with small cell lung cancer treated with radiation and systemic therapy. Indication: Evaluate for FDG-avid diseas e, for subsequent treatment strategy purposes. Comparison: PET/CT dated 04/27/2020 and most recent chest CT dated 10/15/2021 Technique: F-18 fluorodeoxyglucose (FDG) 8.7 mCi was administered intravenously via the left antecubital fossa. To allow for distribution and uptake of radiotracer, the patient was asked to rest quiet ly for approximately 75 minutes. PET/C T imaging was performed from the skull vertex to the proximal thigh. CT scanning was done for attenuation correction, image registration, and diagnosis with scan parameters optimized to minimize radiati on exposure to the patient. SUV measurements are reported as maximum SUV based on body weight unless otherwise specified. Findings: Head and Neck: There is no focal abnorma l metabolic activity in the brain. Bilateral maxillary sinus mucosal thickening shows only mild associated activity, suggesting chronic rather than acute inflam mation. No lymphadenopathy is identifi ed in the neck. Chest: An area of opacification in the r ight upper lobe contains linear and cavitary elements, representing the site of treated lung cancer. There is some decrease in the degree of opacification melissa red to most recent CT (example image 121 versus series 13 image 41) which suggests improved superimposed inflammatory change. A peripheral focus of activity with SUV of 3.7 (image 123) is most consist ent with reactive change. The remainde r of the region demonstrates expected low level activity representing the chronic inflammation from prior radiation therapy. An FDG-avid irregular opacity in the rig ht lung apex with SUV of 5.5 (image 109) and active linear opacification in the lingula (example image 173) are fairly anatomically stable since CT comparison and have the appearance of chronic infectio n/inflammation. Multiple additional small foci of relatively mild activity in both lungs correspond to small, very ill-defined nodular or linear opacities. No distinct or otherwise overtly suspiciou s lung nodules are appreciated. Mild activity at small right paratrachea l and subcarinal nodes and mild symmetric activity in the darcy is consistent with reactive radiotracer uptake. There is no pleural nor pericardial effusion. Abdomen and Pelvis: Evaluation of the un enhanced liver, spleen, pancreas, gallbladder, adrenal glands, kidneys, and bowel is unremarkable. No lymphadenopathy is identified within the abdomen, pelvis, or inguinal regions. Musculoskeletal: There is no focal FDG-a vidity within the imaged skeleton to suggest active malignancy. No suspicious lytic or blastic skeletal abnormalities are observed. 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 Indication: Evaluate for FDG-avid diseas e, for subsequent treatment strategy purposes. Comparison: PET/CT dated 04/27/2020 and most recent chest CT dated 10/15/2021 Technique: F-18 fluorodeoxyglucose (FDG) 8.7 mCi was administered intravenously via the left antecubital fossa. To allow for distribution and uptake of radiotracer, the patient was asked to rest quietly for approximately 75 minutes. PET/CT imaging was performed from the skull vertex to the proximal thigh. CT scanning was done for attenuation correction, image registration, and diagnosis with scan parameters optimized to minimize radiation exposure to the patient. SUV measurements are reported as maximum SUV based on body weight unless otherwise specified. Findings: Head and Neck: There is no focal abnorma l metabolic activity in the brain. Bilateral maxillary sinus mucosal thickening shows only mild associated activity, suggesting chronic rather than acute inflammation. No lymphadenopathy is identified in the nec k. Chest: An area of opacification in the r ight upper lobe contains linear and cavitary elements, representing the site of treated lung cancer. There is some decrease in the degree of opacification compared to most recent CT (example image 121 versus seri es 13 image 41) which suggests improved superimposed inflammatory change. A peripheral focus of activity with SUV of 3.7 (image 123) is most consistent with reactive change. The remainder of the region demonstrates exp ected low level activity representing the chronic inflammation from prior radiation therapy. An FDG-avid irregular opacity in the rig ht lung apex with SUV of 5.5 (image 109) and active linear opacification in the lingula (example image 173) are fairly anatomically stable since CT comparison and have the appearance of chronic infection/inflamma tion. Multiple additional small foci of relatively mild activity in both lungs correspond to small, very ill-defined nodular or linear opacities. No distinct or otherwise overtly suspicious lung nodules are appreciated. Mild activity at small right paratrachea l and subcarinal nodes and mild symmetric activity in the darcy is consistent with reactive radiotracer uptake. There is no pleural nor pericardial effusion. Abdomen and Pelvis: Evaluation of the un enhanced liver, spleen, pancreas, gallbladder, adrenal glands, kidneys, and bowel is unremarkable. No lymphadenopathy is identified within the abdomen, pelvis, or inguinal regions. Musculoskeletal: There is no focal FDG-a vidity within the imaged skeleton to suggest active malignancy. No suspicious lytic or blastic skeletal abnormalities are observed. IMPRESSION: 1. No convincing evidence of FDG-avid sm all cell lung cancer. 2. Bilateral irregular lung opacities wi th some regions demonstrating associated activity show some change in anatomic configuration when compared to 10/15/2021 CT and are compatible with a chronic waxing/waning infectious or inflammatory process. Stella BERGMAN IMMark PETCT ORDERABLES Phosphorus Level (10/24/2021 5:53 AM CDT)Only the most recent of12 resultswithin the time period is included. [facility] Signature Phosphorus 3.4 2.5 - 4.[address] [facility] mg/dL [facility] Specimen Anatomical Collection Method Collection Time Receive d Time (Source) Location / / Volume Laterality Blood 10/24/2021 5:53 AM 2 6:21 CDT AM CDT Ronnie Tolentino MD LAB BLOOD ORDERABLES Performing Organization Address City/State/ZIP Code Phon e Number [facility] CANCER Unless otherwise noted, [place] [address] [place] all lab tests performed by: Division of Pathology and Laboratory Medicine [address] (ABNORMAL) IgG Subclasses (10/22/2021 6:48 AM CDT) [facility] IgG Total-Hart 830 767 - 1590 [place] MD [place] mg/dL [facility] IgG1-Hart 418 341 - 894 [place] [facility] [place] mg/dL [facility] IgG2-[place] 157 (L) 171 - [address] [facility] mg/dL [facility] IgG3-[place] 56.8 18.4 - [place] MD [place] 106.0 [facility] mg/dL IgG4-[place] 8.8 2.4 - [place] MD [place] 121.0 [facility] mg/dL Comment: Test Performed by: [facility] [address] [place], [place] [address] Therapy Teacher: Chato Johnson M.D. Ph. D.; CLIA# [id number] Specimen Anatomical Collection Method Collection Time Receive d Time (Source) Location / / Volume Laterality Blood 10/22/2021 6:48 AM 2 7:34 CDT AM CDT Ronnie Tolentino MD LAB BLOOD ORDERABLES Performing Organization Address City/State/ZIP Code Phon e Number [facility] CANCER Unless otherwise noted, [address] all lab tests performed by: Division of Pathology and Laboratory Medicine [facility] [place] IgA (10/22/2021 6:48 AM CDT) [facility] IgA 191 85 - [address] [facility] mg/dL [facility] Specimen Anatomical Collection Method Collection Time Receive d Time (Source) Location / / Volume Laterality Blood 10/22/2021 6:48 AM 2 7:15 CDT AM CDT Ronnie Tolentino MD LAB BLOOD ORDERABLES Performing Organization Address City/State/ZIP [facility] Phon e Number [facility] CANCER Unless otherwise noted, [address] all lab tests performed by: Division of Pathology and Laboratory Medicine [address] [employer] [place] IgG (10/22/2021 6:48 AM CDT) [facility] IgG 751 610 - 1,[address] [facility] mg/dL [facility] Specimen Anatomical Collection Method Collection Time Receive d Time (Source) Location / / Volume Laterality Blood 10/22/2021 6:48 AM 2 7:15 CDT AM CDT Ronnie Fu Randa CARDENAS LAB BLOOD ORDERABLES Performing Organization Address City/State/ZIP Code Phon e Number [facility] CANCER Unless otherwise noted, [place] [address] CENTER all lab tests performed by: Division of Pathology and Laboratory Medicine [address] [facility] X-ray Chest 1 View (10/21/2021 3:44 PM [...] Component Value Ref Test Analysis Performed At [facility] Serious Energy Range Method Time Signature Final Report No growth [facility] Path Review - Culture yield may be affecte d by sample quality, prior treatment, and transportation conditions. [place] Bottle/Isolat ... [place] or The results have been reviewed and electronically signed b y Pathologist: JOSH Mercado MD, PhD #[id number] C [facility] Specimen Anatomical Collection Method Collection Time Receive d Time (Source) Location / / Volume Laterality Blood 10/21/2021 9:09 AM 2 (Venipuncture-Le CDT 10:21 AM CD T ft) Comment: arm Ronnie Tolentino MD MICROBIOLOGY - GENERAL ORDER [place] Performing Organization Address City/State/ZIP Code Phon e Number [facility] CANCER Unless otherwise noted, [place] [address] [place] all lab tests performed by: Division of Pathology and Laboratory Medicine [address] [place] [address] Fungal Blood Culture (10/21/2021 9:09 AM CDT) Component Value Ref Test Analysis Performed At [facility] Serious Energy Range Method Time Signature Final Report No Fungi isolated. [facility] Path Review - Culture yield may be affecte d by sample quality, prior treatment, and transportation conditions. DE Fungus The results have been reviewed and elect ronically signed by Pathologist: [place] ZABALA MD #[id number] C [facility] Specimen Anatomical Collection Method Collection Time Receive d Time (Source) Location / / Volume Laterality Blood 10/21/2021 9:09 AM 2 (Venipuncture-Le CDT 10:39 AM CD T ft) Comment: arm Ronnie Tolentino MD MICROBIOLOGY - GENERAL ORDER [place] Performing Organization Address City/State/ZIP Code Phon e Number [facility] CANCER Unless otherwise noted, [place] [address] CENTER all lab tests performed by: Division of Pathology and Laboratory Medicine [address] [place] EKG, 12-Lead (10/21/2021)Only the most recent of4 resultswithin the time period is included. Specimen (Source) Anatomical Location Collection Method / Collectio n Time Received Time / Laterality Volume Narrative This result has an attachment that is no t available. Ronnie Fu Randa CARDENAS ECG ORDERABLES Performing Organization Address City/State/ZIP Code [...] i mages Findings: See below. Procedure Note Sofay Ulloa MD - 10/20/2021Forma tting of this [...] Time At Signature Submitted Swallowing painful 10/22/2021 [facility] Clinical [R13.19] 10:30 AM History CDT Diagnosis A. Esophagus, biopsy: 10/22/2021 [facility] Electronically Changes morphologically consistent with Tati esophagitis 10:30 AM signed by CDT Manuela real MD on 10/23/19 at 10:30 AM Gross A: 10/22/2021 [facility] Description Esophagus, esophagus r/o can dida and esophagitis: One piedra-brown fragment of soft tissue measuring 0.4 cm, admixed with probable plant material, entirely submitted in A1. GM 10:30 AM CDT Disclaimer "Some tests 10/22/2021 [facility] LABS reported here may 10:30 AM have been CDT developed and performance characteristics determined by [facility] Pathology and Laboratory Medicine. These tests have [...] Organization Address City/State/ZIP Code Phon e Number [facility] [place] [address] [address] [place] (ABNORMAL) POC Glucose Screen (10/18/2021 6:47 AM CDT) P athologist Signature POC Glucose 196 (H) 70 [...] Sample Type Capillary POC TELCOR Performing Lab [facility] POC TELCO R Comment: [facility] Clinical Lab, [address] [place] [address], [place] [address]; Lab Direct or: Karma Arciniega MD Specimen Anatomical Collection Method Collection Time Receive d Time (Source) Location / / Volume Laterality Blood 10/18/2021 6:47 AM 2 6:47 CDT AM CDT Ronnie Tolentino MD POCT ORDERABLES - DEVICE Performing Organization Address City/State/ZIP Code Phon e Number POC TELCOR Unless otherwise noted, [place] [address] lab tests performed by: Division of Pathology and Laboratory Medicine [address] [place] [address] POC TELCOR Vancomycin Trough Vancomycin trough on 10/17/21@10:30AM. Nurse please coordinate with lab to draw trough approximately 11 - 11.5hours after 10/16/21 evening vanco dose. Hold vancomycin doses if trough isgreater than 20 and notify MD. Thanks! (10/17/2021 11:50 AM CDT) P athologist Signature Vanco Trough 6.0 5.0 - 20.0 [place] mcg/mL [facility] Comment: Toxic Trough Level: >20 mcg/mL Vanco Tr Dose Time See note [facility] MD LEVI [facility] Comment: Level, date, and time of previous dose i s not available for this sample. The date reported is e sample collection date. Vanco Tr Dose Date 10/17/2021 [place] MD EMIGDIO [facility] Comment: Level, date, and time of previous dose i s not available for this sample. The date reported is e sample collection date. Specimen Anatomical Collection Method Collection Time Receive d Time (Source) Location / / Volume Laterality Blood 10/17/2021 11:50 10/17/2021 AM CDT 12:36 PM CDT Narrative [facility] - 2 1:05 PM CDT Vancomycin trough on 10/17/21@10:30AM. Lola lloyd please coordinate with lab to draw trough approximately 11 - 11.5hours after evening vanco dose. Hold vancomycin doses if trough is greater than 20 and notify MD. Thanks! Ronnie Tolentino MD LAB BLOOD ORDERABLES Performing Organization Address City/State/ZIP Code Phon e Number [facility] CANCER Unless otherwise noted, [place] [address] [place] all lab tests performed by: Division of Pathology and Laboratory Medicine [address] [place] (ABNORMAL) Fungitell, Serum (10/17/2021 3:59 AM CDT)Only the most recent of2 resultswithin the time period is included. athologist Signature Fungitell S-V 101 (H) <80 pg/mL [facility] CANCER [place] Comment: Interpretation: The Fungitell assay does not detect certain fungal species such as the genus Cryptococcus ( Marcelino et al. 1991) which produces very low levels of (1-3)-Beta-D -Glucan. The assay also does not detect the Zygomycetes such as Absid ia, Mucor and Rhizopus (Henrry et al. 1994) which are not know n to produce (1-3)-Rrza-G-Botduo. In addition, the ye ast phase of [...] stics for these modifications were determined by [employer] [facility]. If sample result is greater than 500 pg/ mL, physician may order a titer of the sample. Please contact [facility] if you would like to order a retest of this sample to obtain an actual value. Samples are held for 1 week after initia l testing date. Performed At: [facility] [address] [place] [address] Quality Control Lab Technician: Andi Taylor Ph.D., B CLD (ABB) CLIA#: [id number] Phone: Specimen Anatomical Collection Method Collection Time Receive d Time (Source) Location / / Volume Laterality Blood 10/17/2021 3:59 AM 2 CDT 10:49 AM CDT Ronnie Tolentino MD MICROBIOLOGY - GENERAL ORDER [place] Performing Organization Address City/State/ZIP Code Phon e Number [facility] CANCER Unless otherwise noted, [place] [address] [place] all lab tests performed by: Division of Pathology and Laboratory Medicine [address] [place] [address] Procalcitonin (10/17/2021 3:59 AM CDT)Only the most recent of2 resultswithin the time period is included. P athologist Signature Procalcitonin <0.04 <=0.[address] [facility] ng/mL [facility] Comment: Procalcitonin > [...] with extended dilution as it exceeds the technical programs manager's recommended limit. Caution should be exercised when interpreting such values and done in conjunction with clinical context. Specimen Anatomical Collection Method Collection Time Receive d Time (Source) Location / / Volume Laterality Blood 10/17/2021 3:59 AM 5:36 CDT AM CDT Ronnie Fu Randa CARDENAS LAB BLOOD ORDERABLES Performing Organization Address City/State/ZIP Code Phon e Number [facility] CANCER Unless otherwise noted, [address] all lab tests performed by: Division of Pathology and Laboratory Medicine [address] [place] [address] Modified Barium Swallow w Speech (10/16/2021 2:57 [...] report for further details and recommendations. Ronnie Fu Tolentino IMG FLUOROSCOPY ORDERABLES (ABNORMAL) Respiratory PCR Panel, IS SUPPORT ANALYST Swab (10/16/2021 8:05 AM CDT) [facility] Method Time Signature Adenovirus Not Not [place] Detected Detected [facility] Coronavirus 229E Not Not [place] Detected Detected [facility] Coronavirus HKU1 Not Not [place] Detected Detected [facility] Coronavirus NL63 Not Not [place] Detected Detected [facility] Coronavirus OC43 Not Not [place] Detected Detected [facility] Human Not Not [place] Metapneumovirus Detected Detected [facility] Human Detected Not CRISS CARDENAS Rhinovirus/Enterov (A) Detected [facility] Influenza A Not Not [place] Detected Detected [facility] Influenza A H1 Not Not [place] MD Detected Detected [facility] Influenza A H1 Not Not [place] MD 2009 Detected Detected [facility] Influenza A H3 Not Not [place] MD Detected Detected [facility] Influenza B Not Not [place] MD Detected Detected [facility] Parainfluenza 1 Not Not [place] MD Detected Detected [facility] Parainfluenza 2 Not Not [place] MD Detected Detected [facility] Parainfluenza 3 Not Not [place] MD Detected Detected [facility] Parainfluenza 4 Not Not [place] MD Detected Detected [facility] Respiratory Not Not [place] MD Syncytial Virus Detected Detected [facility] Bordetella Not Not [place] MD pertussis Detected Detected [facility] Chlamydiophila Not Not UT MD pneumoniae Detected Detected [facility] Mycoplasma Not Not [place] MD pneumoniae Detected Detected [facility] Specimen (Source) Anatomical Collection Method Collection Time Re ceived Time Location / / Volume Laterality Nasopharyngeal Swab 10/16/2021 8:05 10/18 AM CDT 8:06 AM CDT Ronnie Tolentino MD MICROBIOLOGY - GENERAL ORDER [place] Performing Organization Address City/[facility] Phon e Number [place] [facility] Unless otherwise noted, [address] all lab tests performed by: Division of Pathology and Laboratory Medicine [address] [place] [address] Respiratory PCR Panel Path Review (10/16/2021 8:05 AM CDT) [facility] gist Method Time Signature RMP ID Reviewed and Electronically signed by Pathologist: CRISS Reddy MD, PhD #[id number] [facility] Comment: Performed by real-time PCR [...] - GENERAL ORDER TAWANNA Performing Organization Address City/[facility] Phon e Number [facility] [place] [facility] Unless otherwise noted, [address] all lab tests performed by: Division of Pathology and Laboratory Medicine [address] [place] [address] MRSA Screening Culture (10/15/2021 4:25 PM CDT) Component Value Ref Test Analysis Performed At Patholo gist Range Method Time Signature Final Report No Methicillin [facility] Staphylococcus CANCER aureus isolated. CENTER Path Review The results have been review ed and electronically signed by Pathologist: DE MD Darnell Reddy MD, PhD #[id number] [facility] Specimen Anatomical Collection Method Collection Time Receive d Time (Source) Location / / Volume Laterality Nasal 10/15/2021 4:25 PM 2 6:59 CDT PM CDT Felix Bazzi MD MICROBIOLOGY - GENERAL ORDER [place] Performing Organization Address City/[facility] Phon e Number [facility] Unless otherwise noted, [address] all lab tests performed by: Division of Pathology and Laboratory Medicine [address] [place] [address] (ABNORMAL) Troponin T (In-House) (10/15/2021 1:15 PM CDT)Only the most recent of 5 resultswithin the time period is included. P athologist Signature Troponin T 23 (H) <=18 ng/L [facility] Comment: < 19 ng/L Suggest retest at [...] MD LAB BLOOD ORDERABLES Performing Organization Address City/[facility]/ZIP [facility] Phon e Number [facility] Unless otherwise noted, [address] all lab tests performed by: Division of Pathology and Laboratory Medicine [address] Chest Pulmonary Embolism with Contrast (10/15/2021 [...] Component Value Ref Test Analysis Performed At [facility] gist Range Method Time Signature Legionella Reviewed and Electronically signed by Pathologist: CRISS CARDENAS Urine Antigen Darnell Reddy MD, PhD #[id number] [facility] Comment: DARNELL REDDY MD, PhD - [id number] Dictated by: DARNELL REDDY MD, PhD - 10 196 Dictated Date/Time: 10.17.2021 10:56 AM CDT Transcribed Date/Time: 10.17.2021 10:56 AM CDT Electronically Signed By: DARNELL REDDY MD, PhD - [id number] on 10.17.2021 10:56 AM Specimen Anatomical Collection Method Collection Time Receive d Time (Source) Location / / Volume Laterality Urine 10/15/2021 12:17 10/16/2021 PM CDT 11:26 AM CDT Verónica Thakkar MD MICROBIOLOGY - GENERAL ORDER [place] Performing Organization Address City/[facility] Phon e Number [facility] CANCER Unless otherwise noted, [address] all lab tests performed by: Division of Pathology and Laboratory Medicine Blaise Jones Streptococcal Urine Antigen Path Review (10/15/2021 12:17 PM CDT)Only the most recent of2 resultswithin the time period is included. Component Value Ref Test Analysis Performed Pathologis t Range Method Time At Signature Streptococcal Reviewed and Electronically signed by Pathologist: [place] Urine Antigen Darnell Reddy MD, PhD #[id number] [facility] Comment: DARNELL REDDY MD, PhD - [id number] Dictated by: DARNELL REDDY MD, PhD - 10 196 Dictated Date/Time: 10.16.2021 13:06 PM CDT Transcribed Date/Time: 10.16.2021 13:06 PM CDT Electronically Signed By: DARNELL REDDY MD, PhD - [id number] on 10.16.2021 13:06 PM Specimen Anatomical Collection Method Collection Time Receive d Time (Source) Location / / Volume Laterality Urine 10/15/2021 12:17 10/16/2021 PM CDT 11:26 AM CDT Verónica Thakkar MD MICROBIOLOGY - GENERAL ORDER [place] Performing Organization Address City/[facility] Phon e Number [facility] CANCER Unless otherwise noted, [address] all lab tests performed by: Division of Pathology and Laboratory Medicine Blaise Changvard Streptococcus pneumoniae Urine Antigen (10/15/2021 12:17 PM CDT)Only the most recent of2 resultswithin the time period is included. Component Value Ref Range Test Analysis Performed Pathologis t Method Time At Signature Streptococcal Presumptive negative for S. pneumoniae antigen in the urine, suggesting no current or recent pneumococcal infection. However, infection due to S. pneumoniae cannot be completely ruled out since the leve Negative [facility] Urine Antigen l of antigen present in the urine may be below the [place] Interpretation detection limit of the test. CANCER CENTER Streptococcal Negative Negative [facility] Urine Antigen [place] Interpretation CANCER [place] Specimen Anatomical Collection Method Collection Time Receive d Time (Source) Location / / Volume Laterality Urine 10/15/2021 12:17 10/15/2021 2:23 PM CDT PM CDT Verónica Thakkar MD MICROBIOLOGY - GENERAL ORDER [place] Performing Organization Address [facility] Phon e Number [facility]CER Unless otherwise noted, [address] all lab tests performed by: Division of Pathology and Laboratory Medicine [facility] Legionella Urine Antigen (10/15/2021 12:17 PM CDT)Only [...] not be present in the urine in [facility] early infection and the leve l of antigen present in the urine may be below the detection limit of the test. [facility] Interpretation [facility] Legionella Urine Negative [facility] Antigen [place] Interpretation [facility] CENTER Specimen Anatomical Collection Method Collection Time Receive d Time (Source) Location / / Volume Laterality Urine 10/15/2021 12:17 10/15/2021 2:23 PM CDT PM CDT Verónica Thakkar MD MICROBIOLOGY - GENERAL ORDER [place] Performing Organization Address City/[facility] Phon e Number [facility] CANCER Unless otherwise noted, [address] all lab tests performed by: Division of Pathology and Laboratory Medicine [facility] COVID-19 (SARS-CoV-2)Asymptomatic-LT (10/15/2021 10:08 AM CDT) [facility] Method Time Signature COVID19 Not Detected Not Detected CRISS CARDENAS (SARS-CoV-2) [facility] COVID19 SARS Inpatient CRISS CARDENAS Indication Admission [facility] Covid 19 See Note CRISS CARDENAS Comment [facility] Comment: The kacy SARS-CoV-2 nucleic [...] fact sheet for patients provided by the technical programs manager ([email or web address]) can be reviewed at: https://www.fda.gov/media/044329/downloa d. A fact sheet for Health Care providers is provided by the technical programs manager ([email or web address]) and can be reviewed at: https://www.fda.gov/media/604123/download Results must be interpreted within the c [...] This assay has been authorized by the A for use only under Emergency Use Authorization (EUA) in laboratories that have been CLIA-certified to perform moderate-complexity and high-complexity tests. The Microbiology Laboratory at [facility], CLIA Accreditation #[id number] a in CAP Accreditation #[id number], verified the performance characteristics of this assay. Internal controls are used to monitor all stages of the test process. Specimen (Source) Anatomical Collection Method Collection Time Re ceived Time Location / / Volume Laterality Nasopharyngeal Swab 10/15/2021 10:08 09/28 AM CDT 10:30 AM CDT Verónica Thakkar MD MICROBIOLOGY - GENERAL ORDER [place] Performing Organization Address City/State/ZIP Code Phon e Number [facility] CANCER Unless otherwise noted, [place] [address] [place] all lab tests performed by: Division of Pathology and Laboratory Medicine [facility] Doyle Jones (ABNORMAL) Lower Respiratory Culture w/Gram Stain (10/15/2021 [...] review ed and electronically signed by Pathologist: [place] MD Darnell Reddy MD, PhD #[id number] [place] (A) [facility] Gram Stain Few WBC's seen CRISS CARDENAS Report Epithelial cells seen [place] Few Gram Positive Cocci in pairs CANCER () [place] Organism Streptococcus DE pneumoniae (A) [facility] Specimen Anatomical Collection Method Collection [...] Organization Address City/State/ZIP Code Phon e Number DE MD PERRY [facility] Unless otherwise noted, [place] [address] CENTER all lab tests performed by: Division of Pathology and Laboratory Medicine [address] aPTT (10/15/2021 10:08 AM CDT) P athologist Signature aPTT 29.9 24.7 - 36.8 CRISS PERRY second(s) CANCER CENTER Specimen Anatomical Collection Method Collection Time Receive d Time (Source) Location / / Volume Laterality Blood 10/15/2021 10:08 10/15/2021 AM CDT 10:19 AM CDT Verónica Thakkar MD LAB BLOOD ORDERABLES Performing Organization Address City/[facility]/ZIP Code Phon e Number [facility] CANCER Unless otherwise noted, [address] all lab tests performed by: Division of Pathology and Laboratory Medicine Nicolas[place]5 Doyle Jones (ABNORMAL) NT-Pro BNP (In-House) (10/15/2021 10:08 AM CDT)Only the most recent of2 resultswithin the time period is included. athologist Signature NT ProBNP 137 (H) <=125 pg/mL [facility] Specimen Anatomical Collection Method Collection Time Receive d Time (Source) Location / / Volume Laterality Blood 10/15/2021 10:08 10/15/2021 AM CDT 11:00 AM CDT Verónica Thakkar MD LAB BLOOD ORDERABLES Performing Organization Address City/[facility] Phon e Number [facility] CANCER Unless otherwise noted, [address] all lab tests performed by: Division of Pathology and Laboratory [facility] (ABNORMAL) Prothrombin Time with INR (10/15/2021 10:08 AM CDT) athologist Signature PT 13.5 11.5 - 13.9 [facility](s) [facility] INR 1.11 (H) 0.90 - 1.10 [place] Specimen Anatomical Collection Method Collection Time Receive d Time (Source) Location / / Volume Laterality Blood 10/15/2021 10:08 10/15/2021 AM CDT 10:19 AM CDT Verónica Thakkar MD LAB BLOOD ORDERABLES Performing Organization Address City/[facility]/ZIP [facility] Phon e Number [facility] CANCER Unless otherwise noted, [address] all lab tests performed by: Division of Pathology and Laboratory Medicine [facility] (ABNORMAL) LDH (10/15/2021 10:08 AM CDT) athologist Signature LDH 247 (H) 135 - [address] [facility] U/L CANCER CENTER Comment: Results greater than 1651 U/L [...] Organization Address City/State/ZIP Code Phon e Number [facility] CANCER Unless otherwise noted, [address] all lab tests performed by: Division of Pathology and Laboratory Medicine [address] [place], [place] [address]d CKMB (10/15/2021 10:08 AM CDT)Only the most recent of2 resultswithin the time period is included. athologist Signature CK MB 2.2 <=10.[address] [facility] ng/mL [facility] Specimen Anatomical Collection Method Collection Time Receive d Time (Source) Location / / Volume Laterality Blood 10/15/2021 10:08 10/15/2021 AM CDT 11:00 AM CDT Verónica Thakkar MD LAB BLOOD ORDERABLES Performing Organization Address City/[facility] Phon e Number [facility] CANCER Unless otherwise noted, [address] all lab tests performed by: Division of Pathology and Laboratory Medicine [address] [place], [place] [address]d Creatine Kinase (10/15/2021 10:08 AM CDT)Only the most recent of2 resultswithin the time period is included. P athologist Signature CK 48 39 - [address] [facility] U/L [facility] Specimen Anatomical Collection Method Collection Time Receive d Time (Source) Location / / Volume Laterality Blood 10/15/2021 10:08 10/15/2021 AM CDT 11:00 AM CDT Verónica Thakkar MD LAB BLOOD ORDERABLES Performing Organization Address City/[facility] Phon e Number [facility] CANCER Unless otherwise noted, [address] all lab tests performed by: Division of Pathology and Laboratory Medicine [facility]5 [facility] (ABNORMAL) Respiratory Viral Panel + COVID-19, Nasopharyngeal Swab (09/03/2021 5:14 PM FOR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) [facility] Method Time Signature Adenovirus Not Not [place] MD Detected Detected [facility] Coronavirus 229E Not Not [place] MD Detected Detected [facility] Coronavirus HKU1 Detected Not [facility] MD (A) Detected [facility] Coronavirus NL63 Not Not [facility] MD Detected Detected [facility] Coronavirus OC43 Not Not [facility] MD Detected Detected [facility] COVID19 Not Not [facility] MD (SARS-CoV-2) Detected Detected [facility] Human Not Not [facility] MD Metapneumovirus Detected Detected [facility] Human Not Not [facility] MD Rhinovirus/Enterov Detected Detected [facility] Influenza A Not Not [place] MD Detected Detected [facility] Influenza A H1 Not Not [place] MD Detected Detected [facility] Influenza A H1 Not Not UT MD 2009 Detected Detected [facility] Influenza A H3 Not Not [facility] MD Detected Detected [facility] Influenza B Not Not [facility] MD Detected Detected [facility] Parainfluenza 1 Not Not [facility] MD Detected Detected [facility] Parainfluenza 2 Not Not [facility] MD Detected Detected [facility] Parainfluenza 3 Not Not [facility] MD Detected Detected [facility] Parainfluenza 4 Not Not [facility] MD Detected Detected [facility] Respiratory Not Not UT MD Syncytial Virus Detected Detected [facility] Bordetella Not Not UT MD Parapertussis Detected Detected [facility] Bordetella Not Not UT MD pertussis Detected Detected [facility] Chlamydiophila Not Not UT MD pneumoniae Detected Detected [facility] Mycoplasma Not Not UT MD pneumoniae Detected Detected [facility] Specimen (Source) Anatomical Collection Method Collection Time Re ceived Time Location / / Volume Laterality Nasopharyngeal Swab 09/03/2021 5:14 09/03 PM FOR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 5:51 PM FOR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 Narrative UT MD [facility] - 7:19 PM FOR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 The BioFire RP2.1 is a real-time, nested multiplexed polymerase chain reaction test designed to simul taneously identify nucleic acids from 22 different viruses and bacteria associated with respiratory tract infection, including SARS-CoV-2, from a single nasopharyngeal swab (ELECTRONICS DESIGN ENGINEER) specimen obtai missy from individuals suspected [...] that may not be detected by an ELECTRONICS DESIGN ENGINEER specimen. Internal controls are used to [...] and high-complexity tests. The Microbiology Laboratory at [facility], CLIA Accreditation #[id number] and CAP Accreditation #[id number], verified the per formance characteristics of this assay. [facility] performs the assay using the [employer] System. Jyoti Morales MD MICROBIOLOGY - GENERAL ORDER [place] Performing Organization Address City/State/ZIP Code Phon e Number [facility] Unless otherwise noted, [address] all lab tests performed by: Division of Pathology and Laboratory Medicine [address] after 08/29/2021 Insurance Payer Benefit Plan / Subscriber ID Effective Phone Address T ype Group Dates [employer] [id number] 2020-Prese [address] Medicare MEDICARE MEDICARE [place], [place] ADVANTAGE ADVANTAGE [id number] Guarantor Name Account Type Relation to Date of Phone Billing Patient Address Chato Moreno Personal/Family Self 1955 [id number]) [facility] [address] [phone] 1 (Work) SARAH ROMERO [id number] Chato Moreno Personal/Family Self 1955 [id number] [facility] [address] SARAH Romero [id number] Advance Directives Code Status Date Activated Date Inactivated Comments Full Code 10/15/2021 2:23 PM 10/24/2021 8:32 PM Code Status Date Activated Date Inactivated Comments Full Code 09/03/2021 10:00 PM 09/07/2021 5:51 PM Full Code 02/16/2021 11:33 PM 03/02/2021 8:45 PM Full Code 01/22/2021 1:08 AM 01/30/2021 8:41 PM Full Code 01/04/2021 3:56 PM 01/19/2021 6:53 PM Care Teams Special Order Jeweler Relationship Specialty Start Date End Date Carl Jones MD PCP - External Primary Family Practice 02/14/20 [address] Care Provider [place] [address] [place] [phone] Henrique Plasencia MD PCP - General Thoracic Medicine 04/21/[address] [place] [id number] Kang Piedra MD PCP - External Follow Up Dermatology 06/12/20 [facility] [place] [address]
--- OUTSIDE RECORDS SUMMARY | 2022-08-29 16:33 | XMS REPORT | Continuity of Care Document ---
:[address] [facility] t Address [address] [facility] [place] [address] Care Team Providers Name Role Phone MARIA FERNANDA WASHINGTON Primary Care Physician Unavailable SYSTEM, PROVIDER NOT IN Attending Clinician Unavailable Giovana JARAMILLO, Liz Flroes Attending Clinician Unavailable Luis Angel CARDENAS, Maria Fernanda Fu Attending Clinician Stella Goodrich Attending Clinician Fab JARAMILLO, Inez Stewart Attending Clinician Unavailable Mamadou JARAMILLO, Zulema Ramírez Attending Clinician Unavailable Lazaro ROUSSEAU, Constantine Attending Clinician Ger JARAMILLO, Lolita Sommer Attending Clinician Unavailable Bibiana Pedersen RN Attending Clinician Unavailable Kasie Mehta RN Attending Clinician Unavailable Erin Olivares RN Attending Clinician Edmund JARAMILLO, Daisy Zimmerman Attending Clinician Unavailable Nenita CARDENAS, Fito Kapadia Attending Clinician Vlad JARAMILLO, Karishma Mora Attending Clinician Unavailable Bijan CARDENAS, Verónica Attending Clinician Thelma Bowser DO Attending Clinician Judy CARDENAS, Ed Attending Clinician Maria Luisa CARDENAS, Tod Cervantes. Attending Clinician Alexus CARDENAS, Boni Carr Attending Clinician [phone] Jackson JARAMILLO, Arcadio Attending Clinician Unavailable BONI OBRIEN Attending Clinician Unavailable Aisha CARDENAS, Edwige Orozco Attending Clinician Jenise Degroot MD Attending Clinician Dhiraj Fry CRNA Attending Clinician Jacquelyn CARDENAS, Shena Gudino Attending Clinician Unavailable TOD GLASS V. Attending Clinician Unavailable MARIA FERNANDA WASHINGTON V. Attending Clinician Unavailable TILA, Attending Clinician Unavailable Shantal Patiño MD, Deshawn Attending Clinician [phone] Dean JARAMILLO, Stella Stewart Attending Clinician Unavailable Price JARAMILLO, Ileana Ann Attending Clinician Unavailable Aisha CARDENAS, Mehrdad Attending Clinician Gurpreet Estes MD Attending Clinician DANISH HART Attending Clinician Unavailable Michael Lopez RN Attending Clinician Unavailable Lela Sanon APN Attending Clinician Tadeo CARDENAS, Herrera Attending Clinician Jacki Campbell Attending Clinician Gucci ROUSSEAU, Sarah Ybarra Attending Clinician Raymundo Marr MD Attending Clinician Miguel Ángel TICKET WORKERNicole Attending Clinician Abdirizak Fenton MD Attending Clinician Génesis Farias RN Attending Clinician Unavailable Anais JARAMILLO, Génesis Trevino Attending Clinician Unavailable Andrea ROUSSEAU, Jackie Attending Clinician Yudith Rivas RN Attending Clinician Unavailable Claude Tobin MD Attending Clinician Elmira Lanier APN Attending Clinician Tegan CARDENAS, Giovanna Tanner Attending Clinician Sravan [facility] H[facility], Mary Beth Ann Attending Clinician Unavailable Rah CARDENAS, Herrera Attending Clinician Enzo PharmD, Wayne Attending Clinician Brandon RN, Juan Lehman Attending Clinician Unavailable Lisa JARAMILLO, Gurpreet Ramírez Attending Clinician Unavailable Pineda WITT, Gabrielle Owens Attending Clinician Tejinder RD, Alina Attending Clinician Jacque BRUNER, Wilfredo Stewart Attending Clinician Chris PharmD, Tanja Mora Attending Clinician Unavailable Precious CARDENAS, Benedicto Attending Clinician Shivam RN, Sahara Farah Attending Clinician IRINA SMITH Attending Clinician Unavailable GABRIELLE GONZALEZ Attending Clinician Unavailable MARCIN GARCIA Attending Clinician Unavailable MAYANK CALLES Attending Clinician Unavailable BENEDICTO CORDON Attending Clinician Unavailable RASHAAD PURVIS Attending Clinician Unavailable TANNER MATHEW Attending Clinician Unavailable BENEDICTO RAMSEY Attending Clinician Unavailable GURPREET ESTES Attending Clinician Unavailable RAYMUNDO MARR Attending Clinician Unavailable RUSSELL KENT Attending Clinician Unavailable JACKSON LIND Attending Clinician [...] Unavailable SARAH SHARMA Admitting Clinician Unavailable RUSSELL KENT Admitting Clinician Unavailable Physician, No Primary or Family Admitting Clinician Unavaila ble Payers Payer Name Policy Type Policy Number Effective Date Expiration Date S william BRITO GIOMANOHAR [id number] 2020 PLUS CLASSIC/VALUE 00:00:00 Problems Condition Condition Condition Status Onset Resolution Last Treating Co mments Source Name Details Category Date Date Treatment Clinician Date 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 Center Added automatic ally from request for surgery [id number] Family Family Disease Active 2020-06 Univers education education 1-09 ity of about pain about [place] management management 00 MD Fuentes zimmerman [facility] History of History of Disease Recurre Univers radiation radiation nce 8-20 ity of therapy therapy 00:00: [place] 00 MD Fuentes zimmerman [facility] Pressure-i Pressure-i Disease Active Overview : Univers nduced nduced 7-09 Formattin ity of deep deep 00:00: g of this [place] tissue tissue 00 note damage of damage of might be An derso other site other site different n from the Cancer original. Center Site: Coccyx Sepsis Sepsis Disease Active Univers 7-08 ity of 00:00: [place] 00 MD Fuentes zimmerman [facility] Pulmonary Pulmonary Disease Active Uni vers embolism embolism 5-21 ity of 00:00: [place] 00 MD Fuentes zimmerman [facility] Stage 1 Stage 1 Disease Active Overview: Univ ers pressure pressure 5-18 Formattin ity of ulcer of ulcer of 00:00: g of this [place] as other site other site 00 note might be Anderso different n from the Cancer original. Center Left ear- stage 1-firer portable boiler related from nasal cannula Tube Tube Disease Active Univers feeding feeding 4-24 ity of diet diet 00:00: [place] 00 MD Fuentes zimmerman [facility] Pneumonia Pneumonia Disease Active Uni vers due to due to 4-22 ity of other other 00:00: [place] Gram-negat Gram-negat 00 MD ceci Dill bacteria bacteria [facility] Sequelae Sequelae Disease Active Unive rs of of 4-11 ity of hyperalime hyperalime 00:00[place] ntation ntation 00 MD Fuentes zimmerman [facility] Adverse Adverse Disease Active Univers effect of effect of 3-23 ity of glucocorti glucocorti 00:00[place] coids and coids and synthetic synthetic Prince rso analogues analogues [facility] Current Current Disease Active Univers use of use of 3-23 ity of insulin insulin 00:00: [place] 00 MD Dill [facility] Anxiety Anxiety Disease Active Univers disorder disorder 3-17 ity of due to a due to a 00:00: [place] general general 00 medical medical Andjanice condition condition [facility] Disorder Disorder Disease Active Unive rs of fluid of fluid 3-08 ity of AND/OR AND/OR 00:00: [place] electrolyt electrolyt 00 [facility] Sinus Sinus Disease Active Univers tachycardi tachycardi 3-08 it y of a a 00:00: [place] 00 MD Fuentes zimmerman [facility] Pleuritic Pleuritic Disease Active Uni vers pain pain 2-26 ity of 00:00: [place] 00 MD Fuentes zimmerman [facility] Anemia of Anemia of Disease Recurre Un yakov chronic chronic nce 2-22 ity of disease disease 00:00: [place] 00 MD Fuentes zimmerman [facility] Acute and Acute and Disease Active Uni vers chronic chronic 2-22 ity of respirator resp[place]ator [place] y failure y failure 00 MD lucas with Fuentes hypoxia hypoxia [facility] Failure to Failure to Disease Active U nivers thrive thrive 2-22 ity of 00:00: [place] 00 MD [facility] 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 Center Adjustment Adjustment Disease Recurre Univers disorder disorder nce ity of with mixed with mixed [place] anxiety anxiety and franco Dill depressed depressed n mood mood [facility] Center Chronic Chronic Disease Active Univers pain due pain due ity of to to [place] malignant malignant neoplastic neoplastic An derso disease disease n Cancer Center Slow Slow Disease Active Univers transit transit ity of const[place] on on MD Fuentes zimmerman [facility] Other Other Disease Active Univers psychologi psychologi it y of tracy or tracy or [place] physical physical stress, stress, Anderso not not n elsewhere elsewhere Canc er classified classified Ce nter Personal Personal Disease Recurre Univ ers history of history of nce it y of COVID-19 COVID-19 [place] zimmerman [facility] Acute Acute Disease Resolve 2021-09-04 2021-09-04 Univers kidney kidney d 8-20 00:00:00 14:37:22 ity of injury due injury due 00:[place] to to 00 hypovolemi hypovolemi An derso a a n [facility] Center Hypovolemi Hypovolemi Disease Resolve 2021-09-04 2021-09-04 Univers a a d 8 00:00:00 14:36:33 ity of 00:00: [place] 00 MD Fuentes zimmerman [facility] High High Disease Resolve 2021-09-04 2021-09-04 Univers troponin I troponin I d 02-16 00:00:00 14:35:35 ity of level level 00:00: [place] 00 MD Fuentes zimmerman [facility] Hyperkalem Hyperkalem Disease Resolve 2021-09-04 2021-09-04 Univers ia ia d 02-16 00:00:00 14:36:15 ity of 00:00: [place] 00 MD Fuentes zimmerman [facility] Aspergillo Aspergillo Disease Resolve 2021-09-04 2021-09-04 Univers sis with sis with d 10-25 00:00:00 14:36:44 it y of pneumonia pneumonia 00:[place] 00 [facility] Multiple Multiple Disease Resolve 2021-09-04 2021-09-04 Univers lung lung d 10-20 00:00:00 14:36:17 [place] of abscesses [place]es [place] [facility] Disease Resolve 2021-09-04 2021-09-04 Univers induced induced d 09-19 00:00:00 14:37:13 ity of diabetes diabetes 00:00: [place] mellitus mellitus 00 with with Fuentes hyperglyce hyperglyce n [facility] 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 Resolve 2021-09-04 2021-09-04 Univers current current d 09-19 00:00:00 14:37:15 ity of use of use of 00:00: [place] systemic systemic 00 steroid steroid Fuentes [facility] Pneumocyst Pneumocyst Disease Resolve 2021-09-04 2021-09-04 Univers osis osis d 09-04 00:00:00 14:35:43 ity of pneumonia pneumonia 00:00: [place] [facility] Cyt[facility]o Cytomegalo Disease Resolve 2021-09-04 2021-09-04 Univers virus virus d 3-08 00:00:00 14:35:47 ity of infection [place] 00:[place] 00 [facility] Diarrhea Diarrhea Disease Resolve 2021-09-04 2021-09-04 Univers d 2-22 00:00:00 14:37:13 ity of 00:00: [place] 00 MD Villegas erasmo [facility] Aspiration Aspiration Disease Resolve 2021-09-04 2021-09-04 Univers into lower into lower d 2-11 00:00:00 14:37:24 ity of respirator respirator 00:[place] y tract y tract 00 [facility] erasmo [facility] COVID-19 COVID-19 Disease Resolve 2021-09-04 2021-09-04 Univers d 1-30 00:00:00 14:35:39 ity of 00:00: [place] 00 MD Fuentes zimmerman [facility] Amaurosis Amaurosis Disease Resolve 2021-09-04 2021-09-04 Univers fugax fugax d 4-29 00:00:00 14:36:43 ity of 00:00: 00 MD Fuentes zimmerman [facility] Cancer-rel Cancer-rel Disease Resolve 2021-09-04 2021-09-04 Univers ated ated d 00:00:00 14:37:19 ity of fatigue fatigue [place] zimmerman [facility] Mixed Mixed Disease Resolve 2021-09-04 2021-09-04 Univers infectious infectious d 00:00:00 14:36:17 ity of disease disease Willis zimmerman [facility] Tomography Tomography Disease Resolve 2021-09-04 2021-09-04 Univers - chest - chest d 00:00:00 14:36:37 ity of abnormal abnormal [place] zimmerman [facility] Allergies, Adverse Reactions, Alerts Allergy Allergy Status Severity Reaction(s) Onset Inactive Treating Comm ents Source Name Type Date Date Clinician No Known DA Active U 2019-06 [facility] No Known DA Active U 2019- [facility] Allergie 0-30 [facility] codeine DA Active [place] 2019- [facility] 2-13 [facility] codeine DA Active [place] rash 2019- [facility] 2-13 [facility] codeine DA Active [place] 2011- [facility] 0-09 [facility] codeine DA Active [place] rash 2011- [facility] 0-09 [facility]: d [facility] NO KNOWN Drug Active Univers ALLERGIE Class ity of S [place] [facility] Family History Family Member Diagnosis Comments Start Date Stop Date Source Maternal [facility] Social History Social Habit Start Date Stop Date Quantity Comments Source History of tobacco Cigarette Smoker University of use [place] MD Levi darden [facility] History SDOH University o f Alcohol Frequency [facility] History [facility] University o f Alcohol Std Drinks [facility] History SDOH University o f Alcohol Binge [place] MD Manohar gustafson [facility] Alcohol intake 2022-06-07 2022-06-07 Ex-drinker University of 00:00:00 00:00:00 (finding) [place] MD Levi darden [facility] Cigarettes smoked 2020-03-02 2020-03-02 Univers ity of current (pack per 00:00:00 00:00:[address] [facility] ) - Reported Cancer Ce nter Tobacco use and 2020-03-02 2020-03-02 Smokeless Universit y of exposure 00:00:00 00:00:00 tobacco non-user [facility] Alcohol Comment 2020-03-02 2020-03-02 .5 gallon of Univers ity of 00:00:00 00:00:00 vodka daily 15 [place] MD Ramírez nderson years ago [facility] Center Sex Assigned At [birth year] Universit y of 00:00:00 00:00:00 [place] MD Levi darden [facility] Smoking Status Start Date Stop Date Source Ex-smoker 2020-03-02 00:00:00 2020-03-02 00:00:00 Universi ty of [facility] Medications Ordered Filled Start Stop Current Ordering Indication Dosage Frequency Signature Comments Components Source Medication Medication Date Date Medication? Clinician (SIG) Name Name darianalisa 2021-06 Yes Inhale by U nivers m-vilantero 2-09 mouth. ity of L 62.5-25 12:33: [place] mcg/actuati 10 on dsdv [facility] 2021-06 Yes Inhale by U nivers m-vilantero 2-09 mouth. ity of L 62.5-25 12:33: [place] mcg/actuati 10 on dsdv [facility] atorvastati 2021-06 Yes 40mg Take 40 mg Univers n (LIPITOR) 2-09 by mouth ity of 40 mg 12:30: daily. [place] tablet 21 [facility] budesonide 2021-06 Yes severe .25mg Inhale Un yakov (PULMICORT) 2-09 chronic 0.25 mg by ity of 0.25 mg/2 12:30: obstructive nebulizati [place] mL 21 pulmonary on daily. nebulizer disease [facility] solution [facility] megestrol 2021-06 Yes 400mg Give 400 Uni vers (MEGACE) 40 2-09 mg per ity of mg/mL 12:30: G-tube. [place] suspension 21 [facility] atorvastati 2021-06 Yes 40mg Take 40 mg Univers n (LIPITOR) 2-09 by mouth ity of 40 mg 12:30: daily. [place] tablet 21 [facility] budesonide 2021-06 Yes severe .25mg Inhale Un yakov (PULMICORT) 2-09 chronic 0.25 mg by ity of 0.25 mg/2 12:30: obstructive nebulizati [place] mL 21 pulmonary on daily. nebulizer disease [facility] solution [facility] megestrol 2021-06 Yes 400mg Give 400 Uni vers (MEGACE) 40 2-09 mg per ity of mg/mL 12:30: G-tube. [place] suspension 21 [facility] HYDROcodone 2021-06- No Small cell 1{tbl} Take 1 Univers -acetaminop 2- 01-09 carcinoma, tablet by ity of hen ([place]) 00:00: 05:59 [place] of mouth [place] 5 mg-325 mg 00 :00 upper lobe, every 8 MD per tablet lung (eight) Bakari o <Right> hours as n needed for Cancer moderate Center pain for up to 30 days. HYDROcodone 2021-06- No Small cell 1{tbl} Take 1 Univers -acetaminop 08-08 carcinoma, tablet by ity of hen ([place]) 00:00: 05:59 [place] of [place] 5 mg-325 mg 00 :00 upper lobe, every 8 MD per tablet lung (eight) Bakari o <Right> hours as n needed for Cancer moderate Center pain for up to 30 days. amoxicillin 2021-06- No Small cell 875mg Take 1 Univers -clavulanat 08-08 carcinoma, tablet ity of e 00:00: 05:59 NOS of (875 mg) [place] (AUGMENTIN) 00 :00 upper lobe, by mouth 875 mg-125 lung twice Anderso mg per <Right> daily for n tablet 10 days. Cancer Center amoxicillin 2021-06- No Small cell 875mg Take 1 Univers -clavulanat 08-08 carcinoma, tablet ity of e 00:00: 05:59 NOS of (875 mg) [place] (AUGMENTIN) 00 :00 upper lobe, by mouth 875 mg-125 lung twice Anderso mg per <Right> daily for n tablet 10 days. Cancer [place] midodrine 2021-06 Yes 5mg Take 1 Univer s (PROAMATINE 1-14 tablet (5 ity of ) 5 mg 00:00: mg) by [place] tablet 00 mouth MD twice Anderso daily. n [facility] [place] midodrine 2021-06 Yes 5mg Take 1 Univer s (PROAMATINE 1-14 tablet (5 ity of ) 5 mg 00:00: mg) by [place] tablet 00 mouth MD twice Anderso daily. n [facility] nystatin 2021-06 Yes [id number] Take 5 mL U nivers (MYCOSTATIN 1-03 (500,000 ity of ) 100,000 00:00: Units) by [place] units/mL 00 mouth MD suspension every 8 Bakari o (eight) n hours. [facility] nystatin 2021-06 Yes [id number] Take 5 mL U nivers (MYCOSTATIN 1-03 (500,000 ity of ) 100,000 00:00: Units) by [place] units/mL 00 mouth MD suspension every 8 Bakari o (eight) n hours. Cancer Center QUEtiapine Yes Anxiety 25mg Take 1 Un [...] [place] as (Augmentin) 00 not by mouth 875 mg-125 otherwise twice And erso mg per specified daily. n tablet Cancer Center amoxicillin 2021-0 Yes Upper 875mg Take 1 Un yakov -clavulanat 5-17 respiratory tablet ity of e 00:00: infection, (875 mg) [place] as (Augmentin) 00 not by mouth MD 875 mg-125 otherwise twice And erso mg per specified daily. n tablet Cancer Center amoxicillin 2021-0 Yes Upper 875mg Take 1 Un yakov -clavulanat 5-17 respiratory tablet ity of e 00:00: infection, (875 mg) [place] (Augmentin) 00 not by mouth MD 875 mg-125 otherwise twice And erso mg per specified daily. n tablet Cancer Center amoxicillin 2021-0 Yes Upper 875mg Take 1 Un yakov -clavulanat 5-17 respiratory tablet ity of e 00:00: infection, (875 mg) [place] (Augmentin) 00 not by mouth MD 875 mg-125 otherwise twice And erso mg per specified daily. n tablet Cancer Center levoFLOXaci 2021-0 Yes Upper 500mg Take 1 Un yakov n 5-06 respiratory tablet ity of (Levaquin) 00:00: infection, (500 mg) [place] 500 mg 00 not by mouth MD tablet otherwise daily. Bak[place] o specified n Cancer Center levoFLOXaci 2021-0 Yes Upper 500mg Take 1 Un yakov n 5-06 respiratory tablet ity of (Levaquin) 00:00: infection, (500 mg) [place] 500 mg 00 not by mouth MD tablet otherwise daily. [place] o specified n Cancer Center levoFLOXaci 2021-0 Yes Upper 500mg Take 1 Un yakov n 5-06 respiratory tablet ity of (Levaquin) 00:00: infection, (500 mg) [place] 500 mg 00 not by mouth MD tablet otherwise daily. Bak[place] o specified n Cancer Center levoFLOXaci 2021-0 Yes Upper 500mg Take 1 Un yakov n 5-06 respiratory tablet ity of (Levaquin) 00:00: infection, (500 mg) [place] 500 mg 00 not by mouth MD tablet otherwise daily. [place] o specified n Cancer Center levoFLOXaci 2021-0 Yes Upper 500mg Take 1 Un yakov n 5-06 respiratory tablet ity of (Levaquin) 00:00: infection, (500 mg) [place] 500 mg 00 not by mouth MD tablet otherwise daily. [place] o specified n [facility] fluconazole 2021- No Candidal 200mg Take 1 Univers (Diflucan) 10-25- esophagitis tablet ity of 200 mg 00:00: 04:59 (200 mg) [place] tablet 00 :00 by mouth MD daily for Anderso 4 days. n [facility] fluconazole 2021- No Candidal 200mg Take 1 Univers (Diflucan) 10-25- esophagitis tablet ity of 200 mg 00:00: 04:59 (200 mg) [place] tablet 00 :00 by mouth MD daily for Anderso 4 days. n [facility] fluconazole 2021- No Candidal 200mg Take 1 Univers (Diflucan) 10-25- esophagitis tablet ity of 200 mg 00:00: 04:59 (200 mg) [place] tablet 00 :00 by mouth MD daily for Anderso 4 days. n [facility] fluconazole 2021- No Candidal 200mg Take 1 Univers (Diflucan) 10-25 esophagitis tablet ity of 200 mg 00:00: 04:59 (200 mg) [place] tablet 00 :00 by mouth MD daily for Anderso 4 days. n [facility] fluconazole 2021- No Candidal 200mg Take 1 Univers (Diflucan) 10-25 esophagitis tablet ity of 200 mg 00:00: 04:59 (200 mg) [place] tablet 00 :00 by mouth MD daily for Anderso 4 days. n [facility] promethazin 2021- No 12.5mg Take 12.5 Univers e 4- 04-27 mg by ity of (PHENERGAN) 18:27: 00:00 [place] 12.5 mg 03 :00 every 6 MD tablet (six) Anderso hours as n needed. Cancer Center aspirin 81 2021- No 81mg Take 81 mg Univers mg EC - 04-27 by mouth ity of tablet 18:27: 00:00 [place]. [place] 03 :00 Andjaniceo n [facility] promethazin 2021- No 12.5mg Take 12.5 Univers e -27 04-27 mg by ity of (PHENERGAN) 18:27: 00:00 [place] 12.5 mg 03 :00 every 6 MD tablet (six) Anderso hours as n needed. Cancer Center aspirin 81 2021- No 81mg Take 81 mg Univers mg EC 4-27 04-27 by mouth ity of tablet 18:27: 00:00 [place]. [place] 03 :00 [place] Fuentes zimmerman [facility] 2021- No 12.5mg Take 12.5 Univers e 4-27 -27 mg by ity of (PHENERGAN) 18:27: 00:00 [place] 12.5 mg 03 :00 every 6 MD tablet (six) Anderso hours as n needed. Cancer Center aspirin 81 2021- No 81mg Take 81 mg Univers mg EC 4- 04-27 by mouth ity of tablet 18:27: 00:00 [place]. [place] 03 :00 [place] Fuentes zimmerman [facility] 2021- No 12.5mg Take 12.5 Univers e 4-24 10-27 mg by ity of (PHENERGAN) 18:27: 00:00 mouth [place] 12.5 mg 03 :00 every 6 MD tablet (six) Anderso hours as n needed. Cancer Center aspirin 81 0 2021- No 81mg Take 81 mg Univers mg EC 4- 04-27 by mouth ity of tablet 18:27: 00:00 [place]. [place] 03 :00 [place] Fuentes zimmerman [facility] 2021- No 12.5mg Take 12.5 Univers e 4-27 -27 mg by ity of (PHENERGAN) 18:27: 00:00 mouth [place] 12.5 mg 03 :00 every 6 MD tablet (six) Anderso hours as n needed. Cancer Center aspirin 81 2021- No 81mg Take 81 mg Univers mg EC 4- 04-27 by mouth ity of tablet 18:27: 00:00 [place]. [place] 03 :00 [place] Fuentes zimmerman [facility] atorvastati Yes 40mg Take 40 mg Univers n (LIPITOR) 4-27 by mouth ity of 40 mg 18:26: daily. [place] tablet 55 MD [facility] budesonide Yes severe .25mg Inhale Un yakov (PULMICORT) 4-27 chronic 0.25 mg by ity of 0.25 mg/2 18:26: obstructive nebulizati [place] mL 55 pulmonary on daily. nebulizer disease [facility] Yes Inhale by U nivers m-vilantero 4-27 mouth. ity of L 62.5-25 18:26: [place] mcg/actuati 55 MD on dsdv [facility] megestrol Yes 400mg Give 400 Uni vers (MEGACE) 40 4-27 mg per ity of mg/mL 18:26: G-tube. [place] suspension 55 [facility] atorvastati Yes 40mg Take 40 mg Univers n (LIPITOR) 4-27 by mouth ity of 40 mg 18:26: daily. [place] tablet 55 [facility] budesonide Yes severe .25mg Inhale Un yakov (PULMICORT) 4-27 chronic 0.25 mg by ity of 0.25 mg/2 18:26: obstructive nebulizati [place] mL 55 pulmonary on daily. nebulizer disease [facility] Yes Inhale by U nivers m-vilantero 4-27 mouth. ity of L 62.5-25 18:26: [place] mcg[facility]uati [facility] Give 400 Uni vers (MEGACE) 40 4-27 mg per ity of mg/mL 18:26: G-tube. [place] suspension 55 [facility] atorvastati Yes 40mg Take 40 mg Univers n (LIPITOR) 4-27 by mouth ity of 40 mg 18:26: daily. [place] tablet 55 [facility] budesonide Yes severe .25mg Inhale Un yakov (PULMICORT) 4-27 chronic 0.25 mg by ity of 0.25 mg/2 18:26: obstructive nebulizati [place] mL 55 pulmonary on daily. nebulizer disease [facility] umeclidiniu Yes Inhale by U nivers m-vilantero 10-24 mouth. ity of L 62.5-25 18:26: [place] mcg/actuati 55 MD on dsdv [facility] megestrol Yes 400mg Give 400 Uni vers (MEGACE) 40 4-27 mg per ity of mg/mL 18:26: G-tube. [place] suspension 55 MD [facility] ipratropium Yes Pneumocysto 3mL Inhale 1 Univers -albuterol 10-24 sis vial (3 ity of (DUO-NEB) 00:00: pneumonia mL) by [place] 0.5 mg-2.5 00 nebulizati MD mg/3 mL [...] Pneumonia 1{puff} Inhale 1 Univers HFA 90 4-27 due to puff by ity of mcg/actuati 00:00: [place] inhaler 00 Gram-negati every 6 MD ve bacteria (six) Anderso hours as n needed for Cancer wheezing Center or shortness of breath. ipratropium Yes Pneumocysto 3mL Inhale 1 Univers -albuterol 27 sis vial (3 ity of (DUO-NEB) 00:00: pneumonia mL) by [place] 0.5 mg-2.5 00 nebulizati MD mg/3 mL on every 6 [place] o nebulizer (six) n solution hours as Cancer needed for Center wheezing or shortness of breath. aluminum-ma Yes Gastroesoph 15mL Take 15 mL Univers gnesium 27 ageal by mouth ity of hydroxide-s 00:00: reflux every 4 [place] imethicone 00 disease (four) MD (MAALOX hours as [place] PLUS) 200 needed for n mg-200 indigestio Cancer mg-20 mg/5 n or Center mL heartburn. suspension guaiFENesin Yes Pneumonia 600mg Take 1 Univers (MUCINEX) 4-27 due to tablet ity of 600 mg 12 00:00: other (600 mg) G[place] as hr tablet 00 Gram-negati by mouth MD ve bacteria every 12 [place] rso (twelve) n hours. [facility] Center sucralfate Yes Gastroesoph 1000mg Take 10 mL Univers (CARAFATE) -27 ageal (1,000 mg) it y of 100 [...] Pneumonia 1{puff} Inhale 1 Univers HFA 90 4-27 due to puff by ity of mcg/actuati [...] of hydroxide-s 00:00: reflux every 4 [place] imethicone 00 disease (four) MD (MAALOX hours [...] mg 00:00: with mixed (75 mg) by [place] tablet 00 anxiety and mouth at MD [...] Yes Pneumocysto 3mL Inhale 1 Univers -albuterol 4-27 sis vial (3 ity of (DUO-NEB) 00:00: pneumonia mL) by [place] 0.5 mg-2.5 00 nebulizati MD mg/3 mL on every 6 Bak[place] o nebulizer (six) n solution hours as Cancer needed for Center wheezing or shortness of breath. aluminum-ma Yes Gastroesoph 15mL Take 15 mL Univers gnesium 4-27 ageal by mouth ity of hydroxide-s 00:00: [...] Yes Adjustment 75mg Take 3 Univers (SEROquel) 27 disorder tablets it y of 25 mg [...] Yes Pneumocysto 3mL Inhale 1 Univers -albuterol 4-27 sis vial (3 ity of (DUO-NEB) 00:00: [...] daily for n tablet 7 days. [facility] Center amoxicillin 2021- No Upper 875mg Take 1 U nivers -clavulanat 10-11 respiratory tablet ity of e 00:00: 00:00 infection, (875 mg) [place] (Augmentin) 00 :00 not by mouth MD 875 mg-125 otherwise twice And erso mg per specified daily for n tablet 7 days. [facility] amoxicillin 2021- No Upper 875mg Take 1 U nivers -clavulanat 410-24 respiratory tablet ity of e 00:00: 00:00 infection, (875 mg) [place] (Augmentin) 00 :00 not by mouth MD 875 mg-125 otherwise twice And erso mg per specified daily for n tablet 7 days. [facility] amoxicillin 2021- No Upper 875mg Take 1 U nivers -clavulanat 10-11 respiratory tablet ity of e 00:00: 00:00 infection, (875 mg) [place] (Augmentin) 00 :00 not by mouth MD 875 mg-125 otherwise twice And erso mg per specified daily for n tablet 7 days. [facility] amoxicillin 2021- No Upper 875mg Take 1 U nivers -clavulanat 10-11 respiratory tablet ity of e 00:00: 00:00 infection, (875 mg) [place] (Augmentin) 00 :00 not by mouth 875 mg-125 otherwise twice And erso mg per specified daily for n tablet 7 days. [facility] amoxicillin 2021- No Decompensat 875mg Take 1 Univers -clavulanat 10-10 ed COPD tablet it y of e 00:00: 00:00 with acute (875 mg) [place] (Augmentin) 00 :00 exacerbatio by mouth MD 875 mg-125 n twice Anderso mg per daily for n tablet 5 days. [facility] amoxicillin 2021- No Decompensat 875mg Take 1 Univers -clavulanat 414 ed COPD tablet it y of e 00:00: 00:00 with acute (875 mg) [place] (Augmentin) 00 :00 exacerbatio by mouth MD 875 mg-125 n twice Anders[place] mg per daily for n tablet 5 days. [facility] amoxicillin 2021- No Decompensat 875mg Take 1 Univers -clavulanat 4-13 04-14 ed COPD tablet it y of e 00:00: 00:00 with acute (875 mg) [place] (Augmentin) 00 :00 exacerbatio by mouth 875 mg-125 n twice [place] mg per daily for n tablet 5 days. [facility] amoxicillin 2021- No Decompensat 875mg Take 1 Univers -clavulanat 10-10 ed COPD tablet it y of e 00:00: 00:00 with acute (875 mg) [place] (Augmentin) 00 :00 exacerbatio by mouth MD 875 mg-125 n twice [place] mg per daily for n tablet 5 days. [facility] amoxicillin 2021- No Decompensat 875mg Take 1 Univers -clavulanat 10-10 ed COPD tablet it y of e 00:00: 00:00 with acute (875 mg) [place] (Augmentin) 00 :00 exacerbatio by mouth 875 mg-125 n twice [place] mg per daily for n tablet 5 days. [facility] acetaminoph Yes Neoplasm 1{tbl} Take 1 Univers [...] needed for Center non-violen t agitation. QUEtiapine Anxiety 25mg Take 1 U nivers (SEROquel) 09-07 disorder tablet (25 ity of 25 mg 00:00: 00:00 due to a mg) by [place] tablet 00 :00 general mouth medical every 6 Anderso condition (six) n hours as Cancer needed for Center non-violen t agitation. amoxicillin No [facility] 875mg Take 1 Univers -clavulanat 09-07 acquired tablet i ty of e 00:00: 04:59 pneumonia (875 mg) G[place] as (AUGMENTIN) 00 :00 by mouth 875 mg-125 every 12 [place] so mg per (twelve) n tablet hours for Cancer 3 days. [place] amoxicillin No [facility] 875mg Take 1 Univers -clavulanat 09-07 acquired tablet i ty of e 00:00: 04:59 pneumonia (875 mg) [place] (AUGMENTIN) 00 :00 by mouth 875 mg-125 every 12 [place] so mg per (twelve) n tablet hours for Cancer 3 days. [place] amoxicillin 2021- No [facility] 875mg Take 1 Univers -clavulanat 09-07 acquired tablet i ty of e 00:00: 04:59 pneumonia (875 mg) [place] (AUGMENTIN) 00 :00 by mouth 875 mg-125 every 12 [place] so mg per (twelve) n tablet hours for Cancer 3 days. [place] amoxicillin 2021- No [facility] 875mg Take 1 Univers -clavulanat 09-07 acquired tablet i ty of e 00:00: 04:59 pneumonia (875 mg) [place] (AUGMENTIN) 00 :00 by mouth 875 mg-125 every 12 [place] so mg per (twelve) n tablet hours for Cancer 3 days. [place] amoxicillin 2021- No [facility] 875mg Take 1 Univers -clavulanat 09-07 acquired tablet i ty of e 00:00: 04:59 pneumonia (875 mg) [place] (AUGMENTIN) 00 :00 by mouth 875 mg-125 every 12 [place] so mg per (twelve) n tablet hours for Cancer 3 days. [place] amoxicillin 2021- No [facility] 875mg Take 1 Univers -clavulanat 09-07 acquired tablet i ty of e 00:00: 00:00 pneumonia (875 mg) [place] (AUGMENTIN) 00 :00 by mouth MD 875 mg-125 every 12 [place] so mg per (twelve) n tablet hours for Cancer 3 days. [place] amoxicillin [id number] No [facility] 875mg Take 1 Univers -clavulanat 09-07 acquired tablet i ty of e 00:00: 00:00 pneumonia (875 mg) [place] (AUGMENTIN) 00 :00 by mouth MD 875 mg-125 every 12 [place] so mg per (twelve) n tablet hours for Cancer 3 days. [place] amoxicillin [id number] No [facility] 875mg Take 1 Univers -clavulanat 09-07 acquired tablet i ty of e 00:00: 00:00 pneumonia (875 mg) [place] (AUGMENTIN) 00 :00 by mouth 875 mg-125 every 12 [place] so mg per (twelve) n tablet hours for Cancer 3 days. [place] amoxicillin [id number] No [facility] 875mg Take 1 Univers -clavulanat 09-07 acquired tablet i ty of e 00:00: 00:00 pneumonia (875 mg) [place] (AUGMENTIN) 00 :00 by mouth MD 875 mg-125 every 12 [place] so mg per (twelve) n tablet hours for Cancer 3 days. [place] am[facility]icillin [id number] 875[facility] Take 1 Univers -clavulanat 09-07 acquired tablet i ty of e 00:00: 00:00 pneumonia (875 mg) [place] (AUGMENTIN) 00 :00 by mouth 875 mg-125 every 12 [place] so mg per (twelve) n tablet hours for Cancer 3 days. [place] amoxicillin [id number] No [facility] 875mg Take 1 Univers -clavulanat 09-07 acquired tablet i ty of e 00:00: 00:00 pneumonia (875 mg) [place] (AUGMENTIN) 00 :00 by mouth MD 875 mg-125 every 12 [place] so mg per (twelve) n tablet hours for Cancer 3 days. [place] amoxicillin [id number] No [facility] 875mg Take 1 Univers -clavulanat 09-07 acquired tablet i ty of e 00:00: 00:00 pneumonia (875 mg) [place] (AUGMENTIN) 00 :00 by mouth MD 875 mg-125 every 12 [place] so mg per (twelve) n tablet hours for Cancer 3 days. [place] amoxicillin 2021- No [facility] 875mg Take 1 Univers -clavulanat 09-07 acquired tablet i ty of e 00:00: 00:00 pneumonia (875 mg) [place] (AUGMENTIN) 00 :00 by mouth MD 875 mg-125 every 12 [place] so mg per (twelve) n tablet hours for Cancer 3 days. [place] amoxicillin 2021- No [facility] 875mg Take 1 Univers -clavulanat 09-07 acquired tablet i ty of e 00:00: 00:00 pneumonia (875 mg) [place] (AUGMENTIN) 00 :00 by mouth MD 875 mg-125 every 12 [place] so mg per (twelve) n tablet hours for Cancer 3 days. [place] amoxicillin No [facility] 875mg Take 1 Univers -clavulanat 09-07 acquired tablet i ty of e 00:00: 00:00 pneumonia (875 mg) [place] (AUGMENTIN) 00 :00 by mouth MD 875 mg-125 every 12 [place] so mg per (twelve) n tablet hours for Cancer 3 days. [place] HYDROcodone 2021- No Adjustment 1{tbl} Take 1 Univers -acetaminop 08-18 disorder tablet by [place] ([place]) 00:00: 00:00 with mixed mouth [place] 5 mg-325 mg 00 :00 anxiety and every 6 MD per tablet depressed (six) And erso mood hours as n needed for Cancer moderate Center pain for up to 30 days. HYDROcodone 2021- No Adjustment 1{tbl} Take 1 Univers -acetaminop 2- disorder tablet by ity of hen ([place]) 00:00: 00:00 with mixed mouth [place] 5 mg-325 mg 00 :00 anxiety and every 6 MD per tablet depressed (six) And erso mood hours as n needed for Cancer moderate Center pain for up to 30 days. HYDROcodone 2021- No Adjustment 1{tbl} Take 1 Univers -acetaminop 2-15 09-11 disorder tablet by ity of hen ([place]) 00:00: 00:00 with mixed mouth [place] 5 mg-325 mg 00 :00 anxiety and every 6 MD per tablet depressed (six) And erso mood hours as n needed for Cancer moderate Center pain for up to 30 days. HYDROcodone 2021- No Adjustment 1{tbl} Take 1 Univers -acetaminop 2-15 09-11 disorder tablet by ity of hen ([place]) 00:00: 00:00 with mixed mouth [place] 5 mg-325 mg 00 :00 anxiety and every 6 MD per tablet depressed (six) And erso mood hours as n needed for Cancer moderate Center pain for up to 30 days. HYDROcodone 2021- No Adjustment 1{tbl} Take 1 Univers -acetaminop 2-11 disorder tablet by ity of hen ([place]) 00:00: 00:00 with mixed mouth [place] 5 [...] MD depressed bedtime. Bakari o mood n [facility] QUEtiapine 2021- No Adjustment 75mg Take 3 [...] anxiety and mouth at MD depressed bedtime. [facility] QUEtiapine 2021- No Adjustment 75mg Take 3 Univers (SEROquel) 2-10-24 disorder tablets i ty of 25 mg 00:00: 00:00 with mixed (75 mg) by [place] tablet 00 :00 anxiety and mouth at MD depressed bedtime. [facility] HYDROcodone 2021- No Adjustment 1{tbl} Take 1 Univers -acetaminop 2-15 - disorder tablet by ity of hen ([facility]) 00:00: 00:00 with mixed mouth [place] 5 mg-325 mg 00 :00 anxiety and every 6 MD per tablet depressed (six) And erso mood hours as n needed for Cancer moderate Center pain for up to 30 days. HYDROcodone 2021- No Adjustment 1{tbl} Take 1 Univers -acetaminop 2-15 - disorder tablet by ity of hen ([facility]) 00:00: 00:00 with mixed mouth [place] 5 mg-325 mg 00 :00 anxiety and every 6 MD per tablet depressed (six) And erso mood hours as n needed for Cancer moderate Center pain for up to 30 days. HYDROcodone 2021- No Adjustment 1{tbl} Take 1 Univers -acetaminop 2-15 - disorder tablet by ity of hen ([place]) 00:00: 00:00 with mixed mouth [place] 5 mg-325 mg 00 :00 anxiety and every 6 MD per tablet depressed (six) And erso mood hours as n needed for Cancer moderate Center pain for up to 30 days. HYDROcodone 2021- No Adjustment 1{tbl} Take 1 Univers -acetaminop 2-15 -19 disorder tablet by ity of hen ([place]) 00:00: 00:00 with mixed mouth [place] 5 mg-325 mg 00 :00 anxiety and every 6 MD per tablet depressed (six) And erso mood hours as n needed for Cancer moderate Center pain for up to 30 days. 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) BY [place] tablet 00 upper lobe, MOUTH MD lung TWICE 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, TABLET(10 ity of 10 mg 00:00: NOS of MG) BY [place] tablet 00 upper lobe, MOUTH MD lung TWICE [place] 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, TABLET(10 ity of 10 mg 00:00: NOS of MG) BY [place] tablet 00 upper lobe, MOUTH MD lung TWICE [place] [facility]Right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, TABLET(10 ity of 10 mg 00:00: NOS of MG) BY [place] tablet 00 upper lobe, MOUTH MD lung TWICE [place] [facility]Right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, TABLET(10 ity of 10 mg 00:00: NOS of MG) BY [place] tablet 00 upper lobe, MOUTH MD lung TWICE [place] <Right> DAILY [facility] memantine 2021- No Small cell 5 [...] ity of (PROTONIX) 00:00: respiratory MG) BY [place] 40 mg EC 00 tract MOUTH MD tablet DAILY [facility] pantoprazol Yes Aspiration TAKE 1 Univers e 1-28 into lower TABLET(40 ity of (PROTONIX) 00:00: respiratory MG) BY [place] 40 mg EC 00 tract MOUTH MD tablet DAILY [facility] pantoprazol Yes Aspiration TAKE 1 Univers e 1-28 into lower TABLET(40 ity of (PROTONIX) 00:00: respiratory MG) BY [place] 40 mg EC 00 tract MOUTH MD tablet DAILY [facility] pantoprazol Yes Aspiration TAKE 1 Univers e 1-28 into lower TABLET(40 ity of (PROTONIX) 00:00: respiratory MG) BY [place] 40 mg EC 00 tract MOUTH MD tablet DAILY [facility] pantoprazol Yes Aspiration TAKE 1 Univers e 1-28 into lower TABLET(40 ity of (PROTONIX) 00:00: respiratory MG) BY [place] 40 mg EC 00 tract MOUTH MD tablet DAILY [facility] QUEtiapine 2021- No Adjustment 75mg Take 3 Univers (SEROquel) 07-11 disorder tablets i ty of 25 mg 00:00: 00:00 with mixed (75 mg) by [place] tablet 00 :00 anxiety and mouth at MD depressed bedtime. [facility] QUEtiapine 2021- No Adjustment 75mg Take 3 Univers (SEROquel) 07-11 disorder tablets i ty of 25 mg 00:00: 00:00 with mixed (75 mg) by [place] tablet 00 :00 anxiety and mouth at MD depressed bedtime. [facility] QUEtiapine 2021- No Adjustment 75mg Take 3 Univers (SEROquel) 07-11 disorder tablets i ty of 25 mg 00:00: 00:00 with mixed (75 mg) by [place] tablet 00 :00 anxiety and mouth at MD depressed bedtime. [facility] QUEtiapine 2021- No Adjustment 75mg Take 3 Univers (SEROquel) 07-11 disorder tablets i ty of 25 mg 00:00: 00:00 with mixed (75 mg) by [place] tablet 00 :00 anxiety and mouth at MD depressed bedtime. [facility] pantoprazol 2021- No Aspiration 40mg Take 1 Univers e 07-11 into lower tablet (40 it y of (PROTONIX) 00:00: 00:00 respiratory mg) by [place] 40 mg EC 00 :00 tract mouth MD tablet daily. [facility] pantoprazol 2021- No Aspiration 40mg Take 1 Univers e 07-11 into lower tablet (40 it y of (PROTONIX) 00:00: 00:00 respiratory mg) by [place] 40 mg EC 00 :00 tract mouth MD tablet daily. [facility] pantoprazol 2021- No Aspiration 40mg Take 1 Univers e 07-11 into lower tablet (40 it y of (PROTONIX) 00:00: 00:00 respiratory mg) by [place] 40 mg EC 00 :00 tract mouth MD tablet daily. [facility] pantoprazol 2021- No Aspiration 40mg Take 1 Univers e 07-11 into lower tablet (40 it y of (PROTONIX) 00:00: 00:00 respiratory mg) by [place] 40 mg EC 00 :00 tract mouth MD tablet daily. [facility] OLANZapine 2021- No Insomnia, 2.5mg [...] Upper 875mg Take 1 U nivers -clavulanat 15 respiratory tablet ity of e 00:00: 00:00 infection, (875 mg) [place] (Augmentin) 00 :00 not by mouth MD 875 mg-125 otherwise twice And erso mg per specified daily. 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 [place] amoxicillin 2020-06- No Upper 875mg Take 1 U nivers -clavulanat -15 respiratory tablet ity of e 00:00: 00:00 infection, (875 mg) [place] (Augmentin) 00 :00 not by mouth MD 875 mg-125 otherwise twice And erso mg per specified daily. 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 [place] amoxicillin 2020-06- No Upper 875mg Take 1 U nivers -clavulanat 15 respiratory tablet ity of e 00:00: 00:00 infection, (875 mg) [place] (Augmentin) 00 :00 not by mouth MD 875 mg-125 otherwise twice And erso mg per specified daily. n tablet Cancer [facility] 2020-06- No Chronic 1{tbl} Take 1 Univers [...] Upper 875mg Take 1 U nivers -clavulanat 2-06-27 respiratory tablet ity of e 00:00: 00:00 [...] [place] tablet 00 :00 PRN back spasm. [facility] baclofen 2020-06- No Muscle Take 1/2 Un [place] (LIORESAL) 0 11-18 spasm of tablet (5 ity of 10 mg 00:00: 00:00 back mg) PO q12 [place] tablet 00 :00 PRN back spasm. [facility] baclofen 2020-06- No Muscle Take 1/2 [place] (LIORESAL) 0 11-18 spasm of tablet (5 ity of 10 mg 00:00: 00:00 back mg) PO q12 [place] tablet 00 :00 PRN back spasm. [facility] OLANZapine 2020-06- No Adjustment 2.5mg [...] No Adjustment 2.5mg Take 1 Univers (ZyPREXA) 0- disorder tablet ity of 2.5 mg 00:00: 00:00 with (2.5 mg) [place] tablet 00 :00 anxiety by mouth MD every 6 Anderso (six) n hours as Cancer needed for Center anxiety, sleep or non-violen t agitation. memantine 2021-1 2022- No Small cell 5 mg a day [...] cell 5 mg a day Univers ([place]) 09-07 carcinoma, x 1 week, ity of 10 [...] erso mg per specified daily. n tablet [facility] amoxicillin 2020-06- No Upper 875mg Take 1 U nivers -clavulanat 0-15 -23 respiratory tablet ity of e 00:00: 00:00 infection, (875 mg) [place] (Augmentin) 00 :00 not by mouth 875 mg-125 otherwise twice And erso mg per specified daily. n tablet [facility] amoxicillin 2020-06- No Upper 875mg Take 1 U nivers -clavulanat 0-15 -23 respiratory tablet ity of e 00:00: 00:00 infection, (875 mg) [place] (Augmentin) 00 :00 not by mouth 875 mg-125 otherwise twice And erso mg per specified daily. n tablet [facility] amoxicillin 2020-06- No Upper 875mg Take 1 U nivers -clavulanat 0-15 08-22 respiratory tablet ity of e 00:00: 00:00 infection, (875 mg) [place] (Augmentin) 00 :00 not by mouth 875 mg-125 otherwise twice And erso mg per specified daily. n [facility] 2020-06- No Small cell TAKE 1 Univers (NAMENDA) 0-05 31-14 carcinoma, TABLET(10 ity of 10 mg 00:00: 00:00 NOS of MG) BY [place] tablet 00 :00 upper lobe, MOUTH lung TWICE [place] <Right> DAILY [facility] 2020-06- No Small cell TAKE 1 Univers (NAMENDA) 0-12 -14 carcinoma, TABLET(10 ity of 10 mg 00:00: 00:00 NOS of MG) BY [place] tablet 00 :00 upper lobe, MOUTH lung TWICE [place] <Right> DAILY [facility] 2020-06- No Small cell TAKE 1 Univers (NAMENDA) 0-12 -14 carcinoma, TABLET(10 ity of 10 mg 00:00: 00:00 NOS of MG) BY [place] tablet 00 :00 upper lobe, MOUTH MD lung TWICE [place] <Right> DAILY [facility] memantine 2020-06- No Small cell TAKE 1 Univers (NAMENDA) 012 0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, TABLET(10 ity of 10 mg 00:00: 00:00 NOS of MG) BY [place] tablet 00 :00 upper lobe, MOUTH MD lung TWICE [place] <Right> DAILY [facility] amoxicillin 2020-06- No Upper 875mg Take 1 U nivers -clavulanat 0-09 10-15 respiratory tablet ity of e 00:00: 00:00 infection, (875 mg) [place] (Augmentin) 00 :00 not by mouth MD 875 mg-125 otherwise twice And erso mg per specified daily. n tablet [facility] amoxicillin 2020-06- No Upper 875mg Take 1 U nivers -clavulanat 0-09 10-15 respiratory tablet ity of e 00:00: 00:00 infection, (875 mg) [place] (Augmentin) 00 :00 not by mouth 875 mg-125 otherwise twice And erso mg per specified daily. tablet [facility] pantoprazol 2021- No Aspiration 40mg Take 1 Univers e 03-29 into lower tablet (40 it y of (PROTONIX) 00:00: 00:00 respiratory mg) by [place] 40 mg EC 00 :00 tract mouth MD tablet daily. [facility] pantoprazol 2021- No Aspiration 40mg Take 1 Univers e 03-29 into lower tablet (40 it y of (PROTONIX) 00:00: 00:00 respiratory mg) by [place] 40 mg EC 00 :00 tract mouth MD tablet daily. [facility] pantoprazol 2021- No Aspiration 40mg Take 1 Univers e 03-29 into lower tablet (40 it y of (PROTONIX) 00:00: 00:00 respiratory mg) by [place] 40 mg EC 00 :00 tract mouth MD tablet daily. [facility] baclofen 2020- No Muscle Take 1/2 Un yakov (LIORESAL) 03-29 10-27 spasm of tablet (5 ity of 10 mg 00:00: 00:00 back mg) PO q12 [place] tablet 00 :00 PRN back MD spasm. [facility] baclofen 2020- No Muscle Take 1/2 Un [place] (LIORESAL) 03-29 spasm of tablet (5 ity of 10 mg 00:00: 00:00 back mg) PO q12 [place] tablet 00 :00 PRN back MD spasm. [facility] baclofen 2020- No Muscle Take 1/2 Un yakov (LIORESAL) 03-29 spasm of tablet (5 ity of 10 mg 00:00: 00:00 back mg) PO q12 [place] tablet 00 :00 PRN back MD spasm. 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 [place] OLANZapine 2020- No Adjustment 2.5mg Take 1 [...] erso mg per specified daily. n tablet [facility] amoxicillin 2020- No Upper 875mg Take 1 U nivers -clavulanat 03-27 respiratory tablet ity of e 00:00: 00:00 [place] (875 mg[place] (Aug[place]in[place] :00 not by mouth MD 875 mg-125 otherwise twice And erso mg per specified daily. n tablet [facility] baclofen 2020- No Muscle Take 1/2 Un yakov (LIORESAL) 03-08 spasm of tablet (5 ity of 10 mg 00:00: 00:00 back mg) PO q12 [place] tablet 00 :00 PRN back spasm. Andmiguel [facility] baclofen 2020- No Muscle Take 1/2 Un yakov (LIORESAL) 03-08 spasm of tablet (5 ity of 10 mg 00:00: 00:00 back mg) PO q12 [place] tablet 00 :00 PRN back spasm. Fuentes [facility] baclofen 5 2020- No Muscle 5mg Take 5 mg Univers mg tab 03-08 spasm of by mouth ity of 00:00: 00:00 back every 12 [place] 00 :00 (twelve) MD hours. [facility] QUEtiapine 2021- No Aspiration 75mg 3 tablets Univers (SEROquel) 03-07 into lower (75 mg) by ity of 25 mg 00:00: 00:00 respiratory feeding [place] tablet 00 :00 tract tube route at [facility]. [facility] QUEtiapine 2021- No Aspiration 75mg 3 tablets Univers (SEROquel) 03-07 into lower (75 mg) by ity of 25 mg 00:00: 00:00 respiratory feeding [place] tablet 00 :00 tract tube route at [facility]. [facility] QUEtiapine 2021- No Aspiration 75mg 3 tablets Univers (SEROquel) 03-07 into lower (75 mg) by ity of 25 mg 00:00: 00:00 respiratory feeding [place] tablet 00 :00 tract tube route at [facility]. [facility] QUEtiapine 2020- No Aspiration 75mg 3 tablets Univers (SEROquel) 03-06 into lower (75 mg) by ity of 25 mg 00:00: 00:00 respiratory feeding [place] tablet 00 :00 tract tube route at [facility]. [facility] fluconazole 2020- No Acute 100mg Take 1 U nivers (DIFLUCAN) 03-03 kidney tablet ity of 100 mg 00:00: 04:59 injury due (100 mg) [place] tablet 00 :00 to by mouth hypovolemia daily for And erso 12 days. [facility] lidocaine 2021- No Acute 10mL Swish and U nivers (XYLOCAINE) 03-02 0223 kidney swallow 10 ity of 20 mg/mL [...] tablet 00:00: 00:00 of upper mg) by Ajay gonzales 00 :00 lobe of mouth MD right lung every 8 Bakari o (eight) n hours as Cancer needed for Center nausea or vomiting. 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 [facility] memantine 2020- No Small cell 10mg Take 1 Univers (Namenda) 03-02 carcinoma tablet (10 ity of 10 mg 00:00: 00:00 of upper mg) by [place] tablet 00 :00 lobe of mouth MD right lung twice Anderso daily. [facility] baclofen 5 2020- No Muscle 5mg Take 5 mg Univers mg tab 03-02 spasm of by mouth ity of 00:00: 00:00 back every 12 [place] 00 :00 (twelve) MD hours. [facility] pantoprazol 2020- No Aspiration 40mg Take 1 Univers e 02-28 into lower tablet (40 it y of (PROTONIX) 00:00: 00:00 respiratory mg) by [place] 40 mg EC 00 :00 tract mouth MD tablet daily. [facility] pantoprazol 2020- No Aspiration 40mg Take 1 Univers e 02-28 into lower tablet (40 it y of (PROTONIX) 00:00: 00:00 respiratory mg) by [place] 40 mg EC 00 :00 tract mouth MD tablet daily. [facility] loperamide Yes Aspiration 2mg Take 1 Univers (IMODIUM) 2 8-31 into lower capsule (2 ity of mg capsule 00:00: respiratory mg) by [place] 00 tract mouth MD every 8 Anderso (eight) n hours as Cancer needed for Center diarrhea. Buy over the counter loperamide Yes Aspiration 2mg Take 1 Univers (IMODIUM) 2 8-31 into lower capsule (2 ity of mg capsule 00:00: respiratory mg) by [place] [id number] tract mouth MD every 8 Anderso (eight) n hours as Cancer needed for Center diarrhea. Buy over the counter loperamide Yes Aspiration 2mg Take 1 Univers (IMODIUM) 2 8-31 into lower capsule (2 ity of mg capsule 00:00: respiratory mg) by [place] [id number] tract mouth MD every 8 Anderso (eight) n hours as Cancer needed for Center diarrhea. Buy over the counter loperamide Yes Aspiration 2mg Take 1 Univers (IMODIUM) 2 8-31 into lower capsule (2 ity of mg capsule 00:00: respiratory mg) by [place] [id number] tract mouth MD every 8 Anderso (eight) n hours as Cancer needed for Center diarrhea. Buy over the counter loperamide Yes Aspiration 2mg Take 1 Univers (IMODIUM) 2 8-31 into lower capsule (2 ity of mg capsule 00:00: respiratory mg) by [place] [id number] tract mouth MD every 8 Anderso (eight) n hours as Cancer needed for Center diarrhea. Buy over the counter senna 2021- No Aspiration 2{tbl} Take 2 U nivers (SENOKOT) 02-27-17 into lower tablets by ity of 8.6 [...] No Aspiration 1{appli Apply 1 Univers mucosal 8-31 04-27 into lower cation} applicatio ity of (BIOTENE) 00:00: 00:00 respiratory n to the [place] gel 00 :00 tract mouth or MD throat as Anderso needed for n dry mouth. Cancer Buy over Center the counter. use as directed oral 2021- No Aspiration 1{appli Apply 1 Univers mucosal 8-31 04-27 into lower cation} applicatio ity of (BIOTENE) 00:00: 00:00 respiratory n to the [place] gel 00 :00 tract mouth or MD throat as Anderso needed for n dry mouth. Cancer Buy over Center the counter. use as directed oral 2021- No Aspiration 1{appli Apply 1 Univers mucosal 8-31 04-27 into lower cation} applicatio ity of (BIOTENE) 00:00: 00:00 respiratory n to the [place] gel 00 :00 tract mouth or MD throat as Anderso needed for n dry mouth. Cancer Buy over Center the counter. use as directed oral 2021- No Aspiration 1{appli Apply 1 Univers mucosal 8-31 04-27 into lower cation} applicatio ity of (BIOTENE) 00:00: 00:00 respiratory n to the [place] gel 00 :00 tract mouth or MD throat as Anderso needed for n dry mouth. Cancer Buy over Center the counter. use as directed oral 2021- No Aspiration 1{appli Apply 1 Univers mucosal 8-31 04-27 into lower cation} applicatio ity of (BIOTENE) [...] 12 Anderso syringe pulmonale (twelve) n hours. [facility] enoxaparin 2021- No Other 50mg Inject 0.5 Univers (Lovenox) 02-27 pulmonary mL (50 mg) ity of 60 mg/0.6 00:00: 00:00 embolism under the [place] mL 00 :00 with acute skin every MD prefilled cor 12 Anderso syringe pulmonale (twelve) n hours. [facility] enoxaparin 2021- No Other 50mg Inject 0.5 Univers (Lovenox) 02-27 pulmonary mL (50 mg) ity of 60 mg/0.6 00:00: 00:00 embolism under the [place] mL 00 :00 with acute skin every MD prefilled cor 12 Anderso syringe pulmonale (twelve) n hours. [facility] enoxaparin 2021- No Other 50mg Inject 0.5 Univers (Lovenox) 02-27 pulmonary mL (50 mg) ity of 60 mg/0.6 00:00: 00:00 embolism under the [place] mL 00 :00 with acute skin every MD prefilled cor 12 Anderso syringe pulmonale (twelve) n hours. [facility] enoxaparin 2021- No Other 50mg Inject 0.5 Univers (Lovenox) 02-27 pulmonary mL (50 mg) ity of 60 mg/0.6 00:00: 00:00 embolism under the [place] mL 00 :00 with acute skin every MD prefilled cor 12 Anderso syringe pulmonale (twelve) n hours. [facility] wound 2021- No Aspiration Apply Univ ers [...] tablet hours as n needed Cancer (pain). [facility] Yes Aspiration 1{tbl} Take 1 Univers n tab 7-23 into lower tablet by ity of tablet 00:00: respiratory mouth [place] 00 tract daily. MD Fuentes zimmerman [facility] Yes Aspiration 1{tbl} Take 1 Univers n tab 7-23 into lower tablet by ity of tablet 00:00: respiratory mouth [place] 00 tract daily. MD Fuentes zimmerman [facility] Yes Aspiration 1{tbl} Take 1 Univers n tab 7-23 into lower tablet by ity of tablet 00:00: respiratory mouth [place] 00 tract daily. MD Fuentes zimmerman [facility] Yes Aspiration 1{tbl} Take 1 Univers n tab 7-23 into lower tablet by ity of tablet 00:00: respiratory mouth [place] 00 tract daily. MD Fuentes zimmerman [facility] Yes Aspiration 1{tbl} Take 1 Univers n tab 7-23 into lower tablet by ity of tablet 00:00: respiratory mouth [place] 00 tract daily. MD Fuentes zimmerman [facility] ferrous 2021- No 1{tbl} Take 1 Unive rs sulfate 325 7-22 05-17 tablet by it y of (65 FE) MG 00:00: 00:00 mouth [place] EC tablet 00 :00 daily. MD Fuentes zimmerman [facility] ferrous 2021- No 1{tbl} Take 1 Unive rs sulfate 325 7-22 05-17 tablet by it y of (65 FE) MG 00:00: 00:00 mouth [place] EC tablet 00 :00 daily. MD Fuentes zimmerman [facility] ferrous 2021- No 1{tbl} Take 1 Unive rs sulfate 325 7-22 05-17 tablet by it y of (65 FE) MG 00:00: 00:00 mouth [place] EC tablet 00 :00 daily. MD Fuentes zimmerman [facility] ferrous 2021- No 1{tbl} Take 1 Unive rs sulfate 325 01-18 tablet by it y of (65 FE) MG 00:00: 00:00 mouth [place] EC tablet 00 :00 daily. MD Fuentes zimmerman [facility] ferrous 2021- No 1{tbl} Take 1 Unive rs sulfate 325 01-18 tablet by it y of (65 FE) MG 00:00: 00:00 mouth [place] EC tablet 00 :00 daily. 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 Cancer Center ipratropium 2021- No Pneumocysto USE 1 VIAL Univers -albuterol 6-10-24 sis VIA ity of (DUO-NEB) 00:00: 00:00 pneumonia NEBULIZER [place] 0.5 mg-2.5 00 :00 EVERY 6 MD mg/3 mL HOURS Anderso nebulizer NEEDED FOR n solution WHEEZING Cancer OR Center SHORTNESS OF BREATH FOR UP TO 30 DAYS ipratropium 2021- No Pneumocysto USE 1 VIAL Univers -albuterol 6-10-24 sis VIA ity of (Celebrations.comO-NEB) 00:00: 00:00 pneumonia NEBULIZER [place] 0.5 mg-2.5 [...] Univers -albuterol 11-30 sis VIA ity of (DUOQudiniNEB) 00:00: 00:00 pneumonia NEBULIZER [place] 0.5 mg-2.5 00 :00 EVERY 6 MD mg/3 mL HOURS Anderso nebulizer NEEDED FOR n solution WHEEZING Cancer OR Center SHORTNESS OF BREATH FOR UP TO 30 DAYS ipratropium 2021- No Pneumocysto USE 1 VIAL Univers -albuterol 6-10-24 sis VIA ity of (DUO-NEB) 00:00: 00:00 pneumonia NEBULIZER [place] 0.5 mg-2.5 00 :00 EVERY 6 MD mg/3 mL HOURS Anderso nebulizer NEEDED FOR n solution WHEEZING Cancer OR Center SHORTNESS OF BREATH FOR UP TO 30 DAYS [email or web address] 2021- No Tube 250mL Give 250 Univers ired 5-21 03-11 feeding mL per ity of digestive 00:00: 00:00 diet G-tube 3 Gio as fxn 00 :00 (three) (peptamen times a Anderso 1.5) day. n enteral Cancer tube Center feeding [email or web address] 2021- No Tube 250mL Give 250 Univers ired 5-21 03-11 feeding mL per ity of digestive 00:00: 00:00 diet G-tube 3 Gio as fxn 00 :00 (three) MD (peptamen times a Anderso 1.5) day. n enteral Cancer tube Center feeding [email or web address] 2020-2021- No Tube 250mL Give 250 Univers ired 521 -11 feeding mL per ity of digestive 00:00: 00:00 diet G-tube 3 [place] as fxn 00 :00 (three) (peptamen times a Anderso 1.5) day. n enteral Cancer tube Center feeding [email or web address] 2021- No Tube 250mL Give 250 Univers ired 5-11 feeding mL per ity of digestive 00:00: 00:00 diet G-tube 3 [place] as fxn 00 :00 (three) (peptamen times a Anderso 1.5) day. n enteral Cancer tube Center feeding [email or web address] 2021- No Tube 250mL Give 250 Univers ired 5-21 03-11 feeding mL per ity of digestive 00:00: 00:00 diet G-tube 3 [place] as fxn 00 :00 (three) (peptamen times a Francoersluis 1.5) day. n enteral Cancer tube Center feeding guaiFENesin 2021- No Emphysema 600mg Take 1 Univers (MUCINEX) 10-08-12 tablet ity of 600 mg 12 00:00: 04:59 (600 mg) [place] as hr tablet 00 :00 by mouth MD every 12 Anderso (twelve) n hours. Cancer Elbert guaiFENesin 2020-2021- No Emphysema 600mg Take 1 Univers (MUCINEX) -05 03-12 tablet ity of 600 mg 12 00:00: 04:59 (600 mg) [place] as hr tablet 00 :00 by mouth MD every 12 Anderso (twelve) n hours. [facility] 2021- No Emphysema 600mg Take 1 Univers (MUCINEX) 10-08 tablet ity of 600 mg 12 00:00: 04:59 (600 mg) [place] hr tablet 00 :00 by mouth MD every 12 Anderso (twelve) n hours. [facility] 2021- No Emphysema 600mg Take 1 Univers (MUCINEX) 10-08 tablet ity of 600 mg 12 00:00: 04:59 (600 mg) [place] hr tablet 00 :00 by mouth MD every 12 Anderso (twelve) n hours. [facility] 2021- No Emphysema 600mg Take 1 Univers (MUCINEX) 10-08 tablet ity of 600 mg 12 00:00: 04:59 (600 mg) [place] hr tablet 00 :00 by mouth MD every 12 Anderso (twelve) n hours. [facility] lancets Yes Type 2 1{each} 1 each by [facility] 10-06 diabetes [place] ity o f 00:[place]: [place] 00 with twice [place] hyperglycem daily. Bakarijanice zimmerman [facility] lancets Yes Type 2 1{each} 1 each by [facility] 10-06 diabetes [place] ity o f 00:00: [place] route [place] 00 with twice MD hyperglycem daily. Bakari zimmerman [facility] lancets Yes Type 2 1{each} 1 each by [facility] 10-06 diabetes [place] ity o f 00:00: [place] route [place] 00 with twice [place] hyperglycem daily. Bakarijanice zimmerman [facility] lancets Yes Type 2 1{each} 1 each by [facility] 10-06 diabetes [place] ity o f 00:00: [place] route [place] 00 with twice MD hyperglycem daily. Bakari zimmerman [facility] lancets Yes Type 2 1{each} 1 each by [facility] 10-06 diabetes [place] ity o f 00:00: [place] route [place] 00 with twice MD hyperglycem daily. [facility] Immunizations Ordered Filled Immunization Date Status Comments Sour e Immunization Name Name [facility] 2020-08-22 Completed University of 00:00:00 [place] [facility] 2020-08-22 Completed University of 00:00:00 [place] [facility] 2020-08-22 Completed University of 00:00:00 [place] [facility] 2020-08-22 Completed University of 00:00:00 [place] [facility] 2020-08-22 Completed University of 00:00:00 [place] [facility] 2020-08-22 Completed University of 00:00:00 [place] [facility] 2020-08-22 Completed University of 00:00:00 [place] [facility] 2020-08-22 Completed University of 00:00:00 [place] [facility] 2020-08-22 Completed [facility] 00:00:00 [place] [facility] 00:00:[facility] [place] [facility] 2020[facility] Completed [facility] 00:00:00 [place] [facility] 2020[facility]21 Completed [facility] 00:00:00 [place] [facility] 2020[facility] Completed [facility] 00:00:00 [place] [facility] 00:00:00 [place] [facility] 2020[facility] Completed [facility] 00:00:00 [place] [facility] 2020-08-[facility] Completed [facility] 00:00:00 [place] [facility] 2020[facility] Completed [facility] 00:00:00 [place] [facility] 2020[facility] Completed University of 00:00:00 [place] [facility] 2020-08-20 Completed University of 00:00:00 [place] [facility] Completed University of 00:00:00 [place] [facility] Com[facility] University of 00:00:00 [place] [facility] remdesivir 2020-08-19 Completed University of 00:00:00 [place] [facility] remdesivir 2020-08-19 Completed University of 00:00:00 [place] [facility] remdesivir 2020-08-19 Completed University of 00:00:00 [place] [facility] remdesivir 2020-08-19 Completed University of 00:00:00 [place] [facility] remdesivir 2020-08-18 Completed University of 00:00:00 [place] [facility] Completed University of 00:00:00 [place] [facility] 2020[facility]-18 Completed University of 00:00:00 [place] [facility] Completed [facility] 00[facility]00:00 [place] [facility] 00:[facility] [place] [facility] Com[facility] 00:00:00 [place] [facility] 2020-08-03 Completed [facility] 00:00:00 [place] [facility] Completed University of 00:00:00 [place] [facility] 2020[facility]08-03 Completed University of 00:00:00 [place] [facility] remdesivir 2020-08-03 Completed University of 00:00:00 [place] [facility] remdesivir 2020-08-02 Completed University of 00:00:00 [place] [facility] remdesivir 2020-08-02 Completed University [facility] 00:00:00 [place] [facility] 2020-08-02 Completed University of 00:00:00 [place] [facility] remdesivir 2020-08-02 Completed University of 00:00:00 [place] [facility] remdesivir 2020-08-02 Completed University of 00:00:00 [place] [facility] remdesivir 2020-08-02 Completed University of 00:00:00 [place] [facility] 2020[facility]02 Completed University of 00:00:00 [place] [facility] remdesivir 2020-08-02 Completed University of 00:00:00 [place] [facility] remdesivir 2020-08-02 Completed [facility] 00:00:00 [place] [facility] 00:00:00 [place] [facility] Com[facility] 00:00:00 [place] [facility] Com[facility] 00:00:00 [place] [facility] Completed [facility] 00:00:00 [place] [facility] Com[facility] 00:00:00 [place] [facility] Com[facility] 00:00:00 [place] [facility] 00:00:00 [place] [facility] 2020-07-31 Completed [facility] 00:00:00 [place] [facility] 2020-07-31 Completed University of 00:00:00 [place] [facility] 2020-07-31 Completed University of 00:00:00 [place] [facility] 2020-07-31 Completed University of 00:00:00 [place] MD [facility] 2020[facility]07-30 Completed [facility] 00:00:00 [place] [facility] 2020-07-30 Completed University of 00:00:00 [place] Le[facility]er [facility] 2020[facility]07-30 Completed University of 00:00:00 [place] MD Leeser [facility] remdesivir 2020-07-30 Completed University of 00:00:00 [place] MD Le[facility]er [facility] 2020[facility]07-30 Completed University of 00:00:00 [place] [facility] Influenza Split 2020-03-29 Completed Universit y of High Dose 00:00:00 [place] [facility] IM Zoster Recombinant 2020-03-29 Completed Univer sity of 00:00:00 [facility] Influenza Split 2020-03-29 Completed Universit y of High Dose 00:00:00 [facility] IM Zoster Recombinant 2020-03-29 Completed Univer sity of 00:00:00 [facility]arden [facility] Influenza Split 2020-03-29 Completed Universit y of High Dose 00:00:00 [facility] IM Zoster Recombinant 2020-03-29 Completed Univer sity of 00:00:00 Willis CARDENAS [facility] Influenza Split 2020-03-29 Completed Universit y of High Dose 00:00:00 [facility] IM Zoster Recombinant 2020-03-29 Completed Univer sity of 00:00:00 [facility] Influenza Split 2020-03-29 Completed Universit y of High Dose 00:00:00 [facility] IM Zoster Recombinant 2020-03-29 Completed Univer sity of 00:00:[address] [facility] Center Vital Signs Vital Name Observation Time Observation Value Comments Source WEIGHT 2020-04-21 12:35:00 49.6 kg HEIGHT 2020-03-31 09:15:13 162 cm WEIGHT 2020-03-31 09:15:13 49 kg HEIGHT 2020-03-02 10:27:01 162 cm WEIGHT 2020-03-02 10:27:01 46.8 kg Diastolic blood 2022-06-07 13:58:19 67 mm[Hg] Unive rsity of pressure [facility] Heart rate 2022-06-07 13:58:19 64 /min Universi ty of [facility] Respiratory rate 2022-06-07 13:58:19 18 /min Univ ersity of [facility] Oxygen saturation in 2022-06-07 13:58:19 100 /min University of Arterial blood by [facility] P[facility] o[facility] Systolic blood 2022-06-07 13:58:19 109 mm[Hg] Univer sity of pressure [facility] Body height 2022-06-07 13:11:00 163 cm Universi ty of [facility] Body weight 2022-06-07 13:11:00 50 kg Universi ty of [place] MD [facility] BMI 2022-06-07 13:11:00 18.82 kg/m2 Universi ty of [facility] Heart rate 2021-10-24 21:41:00 74 /min Universi ty of [place] MD [facility] Respiratory rate 2021-10-24 21:41:00 18 /min Univ ersity of [place] MD [facility] Systolic blood 2021-10-24 17:30:00 119 mm[Hg] Univer sity of pressure [place] MD [facility] Diastolic blood 2021-10-24 17:30:00 78 mm[Hg] Unive rsity of pressure [place] [facility] Oxygen saturation in 2021-10-24 17:30:00 96 /min University of Arterial blood by [facility] Body temperature 2021-10-24 16:48:00 36.89 [place] [facility] [place] [facility] Body weight 2021-10-24 09:00:00 55 kg Universi ty of [place] [facility] BMI 2021-10-24 09:00:00 19.57 kg/m2 Universi ty of [place] [facility] Body height 2021-10-15 14:57:00 167.6 cm Universi ty of [place] [facility] Procedures Procedure Date / Time Performing Clinician Source Performed COMPLETE BLOOD COUNT W/ 2022-06-07 15:54:00 Stella Clark i[facility] of [place] DIFFERENTIAL [facility] [place] [facility] COMPREHENSIVE METABOLIC 2022-06-07 15:54:00 Stella Clark Un iverszoraida [facility] PANEL [facility] [place] [facility] Center FREE THYROXINE 2022-06-07 15:54:00 Stella Clark [facility] [place] [facility] MAGNESIUM LEVEL 2022-06-07 15:54:00 Stella Clark [facility] TOTAL T3 2022-06-07 15:54:00 Stella Clark [facility] THYROID STIMULATING 2022-06-07 15:54:00 Stella [place] [facility] [place] [facility] URIC ACID 2022-06-07 15:54:00 Stella Clark [facility] Results CBC 2022-06-07 15:54:00 Stella Clark [facility] MANUAL DIFFERENTIAL 2022-06-07 15:54:00 Stella Clark [facility] GLUCOSE LEVEL 2022-06-07 15:54:00 Stella Clark [facility] BLOOD UREA NITROGEN 2022-06-07 15:54:00 Stella Clark [facility] SERUM CREATININE 2022-06-07 15:54:00 Stella Clark [facility] .GLOMERULAR FILTRATION 2022-06-07 15:54:00 Stella Clark [facility] RATE [facility] CALCIUM LEVEL TOTAL 2022-06-07 15:54:00 Stella Clark [facility] ALBUMIN LEVEL 2022-06-07 15:54:00 Stella Clark [facility] ALKALINE PHOSPHATASE 2022-06-07 15:54:00 Stella Clark [facility] ALANINE AMINOTRANSFERASE 2022-06-07 15:54:00 [facility] ASPARTATE AMINOTRANSFERASE 2022-06-07 15:54:00 Stella Clark [facility] TOTAL PROTEIN 2022-06-07 15:54:00 Stella Clark [facility] FRACTIONATED BILIRUBIN 2022-06-07 15:54:00 Stella Clark [facility] ELECTROLYTE PANEL 2022-06-07 15:54:00 Stella Clark [facility] PETCT SUBSEQUENT TREATMENT 2022-06-07 15:27:59 [facility] COMPLETE BLOOD COUNT W/ 2021-10-24 10:53:00 Tod Glass V. [facility] DIFFERENTIAL [facility] COMPREHENSIVE METABOLIC 2021-10-24 10:53:00 Tod Glass V. [facility] PANEL [facility] MAGNESIUM LEVEL 2021-10-24 10:53:00 Tod Glass V. [facility] PHOSPHORUS LEVEL 2021-10-24 10:53:00 Tod Glass V. [facility] Results CBC 2021-10-24 10:53:00 Tod Glass V. [facility] MANUAL DIFFERENTIAL 2021-10-24 10:53:00 Tod Glass V. [facility] GLUCOSE LEVEL 2021-10-24 10:53:00 Tod Glass V. [facility] BLOOD UREA NITROGEN 2021-10-24 10:53:00 Tod Glass V. [facility] ELECTROLYTE PANEL 2021-10-24 10:53:00 Tod Glass V. [facility] SERUM CREATININE 2021-10-24 10:53:00 Tod Glass V. [facility] .GLOMERULAR FILTRATION 2021-10-24 10:53:00 Tod Glass V. [facility] RATE [facility] CALCIUM LEVEL TOTAL 2021-10-24 10:53:00 Tod Glass V. [facility] ALBUMIN LEVEL 2021-10-24 10:53:00 Tod Glass V. [facility] ALKALINE PHOSPHATASE 2021-10-24 10:53:00 Tod Glass V. [facility] ALANINE AMINOTRANSFERASE 2021-10-24 10:53:00 Tod Glass [facility]. [facility] ASPARTATE AMINOTRANSFERASE 2021-10-24 10:53:00 Tod Glass V. [facility] TOTAL PROTEIN 2021-10-24 10:53:00 Tod Glass V. [facility] FRACTIONATED BILIRUBIN 2021-10-24 10:53:00 Tod Glass [facility] OSCILLATORY PEP 2021-10-23 13:00:13 Tod Glass V. [facility] COMPLETE BLOOD COUNT W/ 2021-10-23 12:28:00 Tod Glass [facility] DIFFERENTIAL [facility] COMPREHENSIVE METABOLIC 2021-10-23 12:28:00 Tod Glass [facility] PANEL [facility] MAGNESIUM LEVEL 2021-10-23 12:28:00 Tod Glass V. [facility] PHOSPHORUS LEVEL 2021-10-23 12:28:00 Tod Glass V. [facility] Results CBC 2021-10-23 12:28:00 Tod Glass V. [facility] MANUAL DIFFERENTIAL 2021-10-23 12:28:00 Tod Glass V. [facility] GLUCOSE LEVEL 2021-10-23 12:28:00 Tod Glass V. [facility] BLOOD UREA NITROGEN 2021-10-23 12:28:00 Tod Glass V. [facility] ELECTROLYTE PANEL 2021-10-23 12:28:00 Tod Glass V. [facility] SERUM CREATININE 2021-10-23 12:28:00 Tod Glass V. [facility] .GLOMERULAR FILTRATION 2021-10-23 12:28:00 Tod Glass [facility] RATE [facility] CALCIUM LEVEL TOTAL 2021-10-23 12:28:00 Tod Glass V. [facility] ALBUMIN LEVEL 2021-10-23 12:28:00 Tod Glass V. [facility] ALKALINE PHOSPHATASE 2021-10-23 12:28:00 Tod Glass V. [facility] ALANINE AMINOTRANSFERASE 2021-10-23 12:28:00 Tod Glass [facility]. [facility] ASPARTATE AMINOTRANSFERASE 2021-10-23 12:28:00 Tod Glass [facility]. [facility] TOTAL PROTEIN 2021-10-23 12:28:00 Tod Glass V. [facility] FRACTIONATED BILIRUBIN 2021-10-23 12:28:00 [facility] OSCILLATORY PEP 2021-10-22 19:00:57 Tod Glass V. [facility] OSCILLATORY PEP 2021-10-22 13:00:14 Tod Glass V. [facility] COMPLETE BLOOD COUNT W/ 2021-10-22 11:48:00 Tod Glass [facility] DIFFERENTIAL [facility] COMPREHENSIVE METABOLIC 2021-10-22 11:48:00 Tod Glass V. [facility] PANEL [facility] MAGNESIUM LEVEL 2021-10-22 11:48:00 Tod Glass V. [facility] PHOSPHORUS LEVEL 2021-10-22 11:48:00 Tod Glass V. [facility] IGG SUBCLASSES, SERUM 2021-10-22 11:48:00 Tod Glass [facility] IMMUNOGLOBULIN G SERUM 2021-10-22 11:48:00 Tod Glass [facility] IMMUNOGLOBULIN A SERUM 2021-10-22 11:48:00 [facility] Results CBC 2021-10-22 11:48:00 Tod Glass V. [facility] MANUAL DIFFERENTIAL 2021-10-22 11:48:00 Tod Glass V. [facility] GLUCOSE LEVEL 2021-10-22 11:48:00 Tod Glass V. [facility] BLOOD UREA NITROGEN 2021-10-22 11:48:00 Tod Glass V. [facility] ELECTROLYTE PANEL 2021-10-22 11:48:00 Tod Glass V. [facility] SERUM CREATININE 2021-10-22 11:48:00 Tod Glass V. [facility] .GLOMERULAR FILTRATION 2021-10-22 11:48:00 Tod Glass [facility] CALCIUM LEVEL TOTAL 2021-10-22 11:48:00 Tod Glass V. [facility] ALBUMIN LEVEL 2021-10-22 11:48:00 Tod Glass V. [facility] ALKALINE PHOSPHATASE 2021-10-22 11:48:00 Tod Glass V. [facility] ALANINE AMINOTRANSFERASE 2021-10-22 11:48:00 Tod Glass [facility]. [facility] ASPARTATE AMINOTRANSFERASE 2021-10-22 11:48:00 [facility] TOTAL PROTEIN 2021-10-22 11:48:00 Tod Glass V. [facility] FRACTIONATED BILIRUBIN 2021-10-22 11:48:00 Tod Glass [facility] OSCILLATORY PEP 2021-10-22 01:00:11 Tod Glass V. [facility] XR CHEST 1 VW 2021-10-21 20:44:00 Tod Glass V. [facility] BLOODCULTURE 2021-10-21 14:09:00 Tod Glass V. [facility] FUNGAL BLOODCULTURE 2021-10-21 14:09:00 Tod Glass V. [facility] COMPLETE BLOOD COUNT W/ 2021-10-21 11:02:00 Tod Glass V. [facility] DIFFERENTIAL [facility] COMPREHENSIVE METABOLIC 2021-10-21 11:02:00 Tod Glass V. [facility] PANEL [facility] MAGNESIUM LEVEL 2021-10-21 11:02:00 Tod Glass V. [facility] PHOSPHORUS LEVEL 2021-10-21 11:02:00 Tod Glass V. [facility] Results CBC 2021-10-21 11:02:00 Tod Glass V. [facility] MANUAL DIFFERENTIAL 2021-10-21 11:02:00 Tod Glass V. [facility] GLUCOSE LEVEL 2021-10-21 11:02:00 Tod Glass V. [facility] BLOOD UREA NITROGEN 2021-10-21 11:02:00 Tod Glass V. [facility] ELECTROLYTE PANEL 2021-10-21 11:02:00 Tod Glass V. [facility] SERUM CREATININE 2021-10-21 11:02:00 Tod Glass V. [facility] .GLOMERULAR FILTRATION 2021-10-21 11:02:00 [facility] CALCIUM LEVEL TOTAL 2021-10-21 11:02:00 Tod Glass V. [facility] ALBUMIN LEVEL 2021-10-21 11:02:00 Tod Glass V. [facility] ALKALINE PHOSPHATASE 2021-10-21 11:02:00 Tod Glass V. [facility] ALANINE AMINOTRANSFERASE 2021-10-21 11:02:00 Tod Glass V. [facility] ASPARTATE AMINOTRANSFERASE 2021-10-21 11:02:00 [facility] TOTAL PROTEIN 2021-10-21 11:02:00 Tod Glass V. [facility] FRACTIONATED BILIRUBIN 2021-10-21 11:02:00 Tod Glasse [facility] EKG, 12-LEAD (PORTABLE) 2021-10-21 00:00:[address] [facility] XR ABDOMEN 1 VW PORTABLE 2021-10-20 19:19:00 Tod Glass [facility]. [facility] OSCILLATORY PEP 2021-10-20 19:00:49 Tod Glass V. [facility] OSCILLATORY PEP 2021-10-20 13:00:11 Tod Glass V. [facility] COMPLETE BLOOD COUNT W/ 2021-10-20 11:10:00 Tod Glass V. [facility] DIFFERENTIAL [facility] COMPREHENSIVE METABOLIC 2021-10-20 11:10:00 Tod Glass V. [facility] PANEL [facility] MAGNESIUM LEVEL 2021-10-20 11:10:00 Tod Glass V. [facility] PHOSPHORUS LEVEL 2021-10-20 11:10:00 Tod Glass V. [facility] Results CBC 2021-10-20 11:10:00 Tod Glass V. [facility] MANUAL DIFFERENTIAL 2021-10-20 11:10:00 Tod Glass V. [facility] GLUCOSE LEVEL 2021-10-20 11:10:00 Tod Glass V. [facility] BLOOD UREA NITROGEN 2021-10-20 11:10:00 Tod Glass V. [facility] ELECTROLYTE PANEL 2021-10-20 11:10:00 Tod Glass V. [facility] SERUM CREATININE 2021-10-20 11:10:00 Tod Glass V. [facility] .GLOMERULAR FILTRATION 2021-10-20 11:10:00 Tod Glass [facility] RATE [facility] CALCIUM LEVEL TOTAL 2021-10-20 11:10:00 Tod Glass V. [facility] ALBUMIN LEVEL 2021-10-20 11:10:00 Tod Glass V. [facility] ALKALINE PHOSPHATASE 2021-10-20 11:10:00 Tod Glass V. [facility] ALANINE AMINOTRANSFERASE 2021-10-20 11:10:00 Tod Glass [facility]. [facility] ASPARTATE AMINOTRANSFERASE 2021-10-20 11:10:00 Tod Glass [facility]. [facility] TOTAL PROTEIN 2021-10-20 11:10:00 Tod Glass V. [facility] FRACTIONATED BILIRUBIN 2021-10-20 11:10:00 [facility] OSCILLATORY PEP 2021-10-20 01:00:09 Tod Glass V. [facility] OSCILLATORY PEP 2021-10-19 19:00:53 Tod Glass V. [facility] PATHOLOGY BIOPSY 2021-10-19 18:35:00 Edwige Rod [facility] INTERPRETATION [facility] UPPER GASTROINTESTINAL 2021-10-19 18:14:00 Edwige Rod [facility] ENDOSCOPY OF ESOPHAGUS, MD [facility] STOMACH, AND DUODENUM WITH Cente r BIOPSY OSCILLATORY PEP 2021-10-19 14:01:42 Tod Glass V. [facility] COMPLETE BLOOD COUNT W/ 2021-10-19 12:18:00 Tod Glass V. [facility] DIFFERENTIAL [facility] COMPREHENSIVE METABOLIC 2021-10-19 12:18:00 Tod Glass V. [facility] PANEL [facility] MAGNESIUM LEVEL 2021-10-19 12:18:00 Tod Glass V. [facility] PHOSPHORUS LEVEL 2021-10-19 12:18:00 Tod Glass V. [facility] Results CBC 2021-10-19 12:18:00 Tod Glass V. [facility] MANUAL DIFFERENTIAL 2021-10-19 12:18:00 Tod Glass V. [facility] GLUCOSE LEVEL 2021-10-19 12:18:00 Tod Glass V. [facility] BLOOD UREA NITROGEN 2021-10-19 12:18:00 Tod Glass V. [facility] ELECTROLYTE PANEL 2021-10-19 12:18:00 Tod Glass V. [facility] SERUM CREATININE 2021-10-19 12:18:00 Tod Glass V. [facility] .GLOMERULAR FILTRATION 2021-10-19 12:18:00 Tod Glass [facility] CALCIUM LEVEL TOTAL 2021-10-19 12:18:00 Tod Glass V. [facility] ALBUMIN LEVEL 2021-10-19 12:18:00 Tod Glass V. [facility] ALKALINE PHOSPHATASE 2021-10-19 12:18:00 Tod Glass V. [facility] ALANINE AMINOTRANSFERASE 2021-10-19 12:18:00 Tod Glass V. [facility] ASPARTATE AMINOTRANSFERASE 2021-10-19 12:18:00 Tod Glass [facility]. [facility] TOTAL PROTEIN 2021-10-19 12:18:00 Tod Glass V. [facility] FRACTIONATED BILIRUBIN 2021-10-19 12:18:00 Tod Glass [facility] XR CHEST 1 VW 2021-10-18 21:15:00 Tod Glass V. [facility] POC GLUCOSE SCREEN 2021-10-18 11:47:00 Tod Glass V. [facility] COMPLETE BLOOD COUNT W/ 2021-10-18 09:25:00 Tod Glass V. [facility] DIFFERENTIAL [facility] COMPREHENSIVE METABOLIC 2021-10-18 09:25:00 Tod Glass V. [facility] PANEL [facility] MAGNESIUM LEVEL 2021-10-18 09:25:00 Tod Glass V. [facility] PHOSPHORUS LEVEL 2021-10-18 09:25:00 Tod Glass V. [facility] Results CBC 2021-10-18 09:25:00 Tod Glass V. [facility] MANUAL DIFFERENTIAL 2021-10-18 09:25:00 Tod Glass V. [facility] GLUCOSE LEVEL 2021-10-18 09:25:00 Tod Glass V. [facility] BLOOD UREA NITROGEN 2021-10-18 09:25:00 Tod Glass V. [facility] ELECTROLYTE PANEL 2021-10-18 09:25:00 Tod Glass V. [facility] SERUM CREATININE 2021-10-18 09:25:00 Tod Glass V. [facility] .GLOMERULAR FILTRATION 2021-10-18 09:25:00 Tod Glass V. [facility] RATE [facility] CALCIUM LEVEL TOTAL 2021-10-18 09:25:00 Tod Glass V. [facility] ALBUMIN LEVEL 2021-10-18 09:25:00 Tod Glass V. [facility] ALKALINE PHOSPHATASE 2021-10-18 09:25:00 Tod Glass V. [facility] ALANINE AMINOTRANSFERASE 2021-10-18 09:25:00 Tod Glass V. [facility] ASPARTATE AMINOTRANSFERASE 2021-10-18 09:25:00 Tod Glass V. [facility] TOTAL PROTEIN 2021-10-18 09:25:00 Tod Glass V. [facility] FRACTIONATED BILIRUBIN 2021-10-18 09:25:00 [facility] OSCILLATORY PEP 2021-10-18 07:00:10 Tod Glass V. [facility] OSCILLATORY PEP 2021-10-18 01:00:07 Tod Glass V. [facility] OSCILLATORY PEP 2021-10-17 19:01:02 Tod Glass V. [facility] VANCOMYCIN LEVEL TROUGH 2021-10-17 16:50:[address] [facility] OSCILLATORY PEP 2021-10-17 14:31:30 Tod Glass V. [facility] FUNGITELL, SERUM 2021-10-17 08:59:00 Tod Glass V. [facility] COMPLETE BLOOD COUNT W/ 2021-10-17 08:59:00 Tod Glass V. [facility] DIFFERENTIAL [facility] COMPREHENSIVE METABOLIC 2021-10-17 08:59:00 Tod Glass V. [facility] PANEL [facility] MAGNESIUM LEVEL 2021-10-17 08:59:00 Tod Glass V. [facility] PHOSPHORUS LEVEL 2021-10-17 08:59:00 Tod Glass V. [facility] Results CBC 2021-10-17 08:59:00 Tod Glass V. [facility] MANUAL DIFFERENTIAL 2021-10-17 08:59:00 Tod Glass V. [facility] GLUCOSE LEVEL 2021-10-17 08:59:00 Tod Glass V. [facility] BLOOD UREA NITROGEN 2021-10-17 08:59:00 Tod Glass V. [facility] ELECTROLYTE PANEL 2021-10-17 08:59:00 Tod Glass V. [facility] SERUM CREATININE 2021-10-17 08:59:00 Tod Glass V. [facility] .GLOMERULAR FILTRATION 2021-10-17 08:59:00 Tod Glass [facility] CALCIUM LEVEL TOTAL 2021-10-17 08:59:00 Tod Glass V. [facility] ALBUMIN LEVEL 2021-10-17 08:59:00 Tod Glass [facility]. [facility] ALKALINE PHOSPHATASE 2021-10-17 08:59:00 Tod Glass V. [facility] ALANINE AMINOTRANSFERASE 2021-10-17 08:59:00 Tod Glass V. [facility] ASPARTATE AMINOTRANSFERASE 2021-10-17 08:59:00 Tod Glass V. [facility] TOTAL PROTEIN 2021-10-17 08:59:00 Tod Glass V. [facility] FRACTIONATED BILIRUBIN 2021-10-17 08:59:00 Tod Glass [facility] PROCALCITONIN 2021-10-17 08:59:00 Tod Glass [facility]. [facility] [place] MODIFIED BARIUM SWALLOW 2021-10-16 19:57:25 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 SWAB [facility] RESPIRATORY PCR PANEL PATH 2021-10-16 13:05:00 [facility] REVIEW [facility] MRSA SCREENING CULTURE 2021-10-15 21:25:00 Felix Bazzi [facility] TROPONIN T 2021-10-15 18:15:00 B[facility] CT CHEST PULMONARY 2021-10-15 17:58:06 Bijan Verónica [facility] EMBOLISM W CONTRAST [facility] LEGIONELLA URINE ANTIGEN 2021-10-15 17:17:00 Verónica Thakkar [facility] STREPTOCOCCUS PNEUMONIAE 2021-10-15 17:17:00 Bijan Verónica [facility] URINE ANTIGEN [facility] STREPTOCOCCAL URINE 2021-10-15 17:17:00 Bijan Verónica [facility] ANTIGEN PATH REVIEW [facility] LEGIONELLA URINE ANTIGEN 2021-10-15 17:17:00 [facility] FUNGITELL, SERUM 2021-10-15 16:43:00 Bijan [facility] COVID-19 (SARS-COV-2) 2021-10-15 15:08:00 Verónica Thakkar [facility] ASYMPTOMATIC-LT [facility] BLOODCULTURE 2021-10-15 15:08:00 Bijan [facility] LOWER RESPIRATORY CULTURE 2021-10-15 15:08:00 [facility] W/ GRAM STAIN [facility] COMPREHENSIVE METABOLIC 2021-10-15 15:08:00 Bijan Verónica [facility] PANEL [facility] MAGNESIUM LEVEL 2021-10-15 15:08:00 Bijan Verónica [facility] PHOSPHORUS LEVEL 2021-10-15 15:08:00 Bijan [facility] LACTATE DEHYDROGENASE 2021-10-15 15:08:00 Bijan Verónica [facility] PROCALCITONIN 2021-10-15 15:08:00 Bijan [facility] TROPONIN T 2021-10-15 15:08:00 Bijan [facility] CREATINE KINASE 2021-10-15 15:08:00 Bijan [facility] CKMB 2021-10-15 15:08:00 Bijan [facility] NT PRO BNP 2021-10-15 15:08:00 Bijan [facility] COMPLETE BLOOD COUNT W/ 2021-10-15 15:08:00 Bijan Verónica [facility] PROTHROMBIN TIME 2021-10-15 15:08:00 Bijan [facility] APTT 2021-10-15 15:08:00 Bijan [facility] GLUCOSE LEVEL 2021-10-15 15:08:00 Bijan [facility] BLOOD UREA NITROGEN 2021-10-15 15:08:00 Bijan [facility] ELECTROLYTE PANEL 2021-10-15 15:08:00 Bijan [facility] SERUM CREATININE 2021-10-15 15:08:00 Bijan [facility] .GLOMERULAR FILTRATION 2021-10-15 15:08:00 Verónica Thakkar [facility] RATE [facility] CALCIUM LEVEL TOTAL 2021-10-15 15:08:00 Bijan [facility] ALBUMIN LEVEL 2021-10-15 15:08:00 Bijan [facility] ALKALINE PHOSPHATASE 2021-10-15 15:08:00 Bijan Verónica [facility] ALANINE AMINOTRANSFERASE 2021-10-15 15:08:00 Bijan Verónica [facility] ASPARTATE AMINOTRANSFERASE 2021-10-15 15:08:00 Verónica Thakkar [facility] TOTAL PROTEIN 2021-10-15 15:08:00 Bijan [facility] FRACTIONATED BILIRUBIN 2021-10-15 15:08:00 [facility]ijan [facility] Results CBC 2021-10-15 15:08:00 Bijan [facility] Center MANUAL DIFFERENTIAL 2021-10-15 15:08:00 Bijan [facility] XR CHEST 1 VW 2021-10-15 14:45:00 Bijan [facility] EKG, 12-LEAD (PORTABLE) 2021-10-15 00:00:00 Bijan [facility] COMPLETE BLOOD COUNT W/ 2021-09-05 11:48:00 Bebo [facility] DIFFERENTIAL [facility] COMPREHENSIVE METABOLIC 2021-09-05 11:48:00 Bebo [facility] PANEL [facility] MAGNESIUM LEVEL 2021-09-05 11:48[facility] 2021-09-05 11:48[facility] 2021-09-05 11:48:00 Bebo [facility] MANUAL DIFFERENTIAL 2021-09-05 11:48[facility]00 [facility] 2021-09-05 11:48[facility]LO[facility] UREA NITROGEN 2021-09-05 11:48:00 [facility] ELECTROL[facility]TE PANEL 2021-09-05 11:48:00 [facility] CREATININE 2021-09-05 11:48:00 [facility]GLOM[facility] FILTRATION 2021-09-05 11:48:00 Inez Lagunas [facility] [place] RATE [facility] [place] CALCIUM LEVEL TOTAL 2021-09-05 11:48:00 Bebo Mini [facility] [place] ALBUMIN LEVEL 2021-09-05 11:48:00 Bebo Mini [facility] ALKALINE PHOSPHATASE 2021-09-05 11:48:00 Bebo Mini [facility] Center ALANINE AMINOTRANSFERASE 2021-09-05 11:48:00 Bebo Mini [facility] ASPARTATE AMINOTRANSFERASE 2021-09-05 11:48:00 Inez Lagunas [facility] er Center TOTAL PROTEIN 2021-09-05 11:48:00 Inez Lagunas [facility] FRACTIONATED BILIRUBIN 2021-09-05 11:48:00 Inez Lagunas [facility] STREPTOCOCCUS PNEUMONIAE 2021-09-04 19:38:00 Bebo Mini [facility] [place] URINE ANTIGEN [facility] LEGIONELLA URINE ANTIGEN 2021-09-04 19:38:00 Bebo Mini [facility] LEGIONELLA URINE ANTIGEN 2021-09-04 19:38:00 Bebo Mini [facility] [place] PATH REVIEW [facility] STREPTOCOCCAL URINE 2021-09-04 19:38:00 Inez Lagunas [facility] ANTIGEN PATH REVIEW [facility] LOWER RESPIRATORY CULTURE 2021-09-04 19:36:00 [facility] W/ GRAM STAIN [facility] BASIC METABOLIC PANEL, 2021-09-04 09:51:00 [facility] CALCI[facility] TOTAL [facility] MAGNESIUM LEVEL 2021-09-04 09:51:00 Bijan [facility] PHOSPHORUS LEVEL 2021-09-04 09:51:00 Bijan [facility] TROPONIN T 2021-09-04 09:51:00 Mehrdad Rod Perry [facility] GLUCOSE LEVEL 2021-09-04 09:51:00 Bijan [facility] BLOOD UREA NITROGEN 2021-09-04 09:51:00 Bijan [facility] ELECTROLYTE PANEL 2021-09-04 09:51:00 Bijan [facility] SERUM CREATININE 2021-09-04 09:51:00 Bijan [facility] .GLOMERULAR FILTRATION 2021-09-04 09:51:00 Verónica Thakkar [facility] RATE [facility] CALCIUM LEVEL TOTAL 2021-09-04 09:51:00 Bijan [facility] TROPONIN T 2021-09-04 03:49:00 Bijan [facility] CREATINE KINASE 2021-09-04 03:49:00 Bijan [facility] CKMB 2021-09-04 03:49:00 Bijan [facility] CT CHEST PULMONARY 2021-09-04 03:46:45 Bijan Verónica [facility] EMBOLISM [facility] XR CHEST 1 VW 2021-09-03 23:40:27 Jyoti Morales [facility] RESPIRATORY VIRAL 2021-09-03 23:14:00 Jyoti Morales [facility] MULTIPLEX PCR PANEL, [facility] NASOPHARYNGEAL SWAB Center COMPLETE BLOOD COUNT W/ 2021-09-03 21:54:00 Jyoti Morales [facility] DIFFERENTIAL [facility] COMPREHENSIVE METABOLIC 2021-09-03 21:54:00 Jyoti Morales [facility] PANEL [facility] MAGNESIUM LEVEL 2021-09-03 21:54:00 Jyoti Morales [facility] PHOSPHORUS LEVEL 2021-09-03 21:54:00 Jyoti Morales [facility] NT PRO BNP 2021-09-03 21:54:00 Jyoti Morales [facility] TROPONIN T 2021-09-03 21:54:00 Jyoti Morales [facility] Results CBC 2021-09-03 21:54:00 Jyoti Morales [facility] MANUAL DIFFERENTIAL 2021-09-03 21:54:00 Jyoti Morales [facility] [place] [facility] GLUCOSE LEVEL 2021-09-03 21:54:00 Jyoti Morales [facility] BLOOD UREA NITROGEN 2021-09-03 21:54:00 Jyoti Morales [facility] ELECTROLYTE PANEL 2021-09-03 21:54:00 Jyoti Morales [facility] SERUM CREATININE 2021-09-03 21:54:00 Jyoti Morales [facility] .GLOMERULAR FILTRATION 2021-09-03 21:54:00 Jyoti Morales [facility] CALCIUM LEVEL TOTAL 2021-09-03 21:54:00 Jyoti Morales [facility] ALBUMIN LEVEL 2021-09-03 21:54:00 Jyoti Morales [facility] ALKALINE PHOSPHATASE 2021-09-03 21:54:00 Jyoti Morales [facility] ALANINE AMINOTRANSFERASE 2021-09-03 21:54:00 [facility] ASPARTATE AMINOTRANSFERASE 2021-09-03 21:54:00 Jyoti Morales [facility] TOTAL PROTEIN 2021-09-03 21:54:00 Jyoti Morales [facility] FRACTIONATED BILIRUBIN 2021-09-03 21:54:00 [facility] EKG, 12-LEAD (PORTABLE) 2021-09-03 00:00:00 Jyoti Morales [facility] CT CHEST W CONTRAST 2021-08-13 14:15:24 Nicole Del Rosario [facility] POC CREATININE 2021-08-13 13:30:00 Nicole Del Rosario [facility] REPLACEMENT OF GASTROSTOMY 2021-05-22 04:50:00 Claude Tobin [facility] TUBE, PERCUTANEOUS, MD Isaac Cancer INCLUDES REMOVAL, WHEN Center PERFORMED, WITHOUT IMAGING OR ENDOSCOPIC GUIDANCE; NOT REQUIRING REVISION OF GASTROSTOMY TRACT CT CHEST ABDOMEN PELVIS W 2021-04-20 19:35:00 Jackie Mendez [facility] CONTRAST [facility] POC CREATININE 2021-04-20 18:02:00 Maria Fernanda [facility] MRI BRAIN W WO CONTRAST 2021-04-20 16:10:00 Jackie Mendez [facility] Plan of Care Planned Activity Planned Date Details Comments Source Future Scheduled 2022-08-29 COVID-19 Vaccination [facility] [place] Test 14:41:32 (#1) [code = COVID-19 [facility] Vaccination (#1)] Center Future Scheduled 2022-07-19 COVID-19 Vaccination [facility] [place] Test 13:21:28 (#1) [code = COVID-19 MD [facility] Vaccination (#1)] Center Future Scheduled 2022-04-22 COVID-19 Vaccination Uni versity [...] Type Clinicians Facility Department ID 2021-04-30 Emergency [facility] [id number] Univers 04:07:[address] [facility] 2020-04-12 Outpatient MDA MDA [id number] 16:09:07 Fuentes zimmerman 2020-02-14 Outpatient SYSTEM, [facility] ANUJ [id number] 13:23:33 PROVIDER Bakari zimmerman 2022-08-29 2022-08-29 Telephone Giovana, 1.2.840.1 [id number] Univers 00:00:00 00:00:00 Liz Flores 38227.1.1 ity of 3.412.2.7 [place] .3.144655 MD Haines8 [facility] 2022-06-19 2022-06-19 Orders Luis Angel, 1.2.840.1 [id number] Univers 00:00:00 00:00:00 Only Maria Fernanda Fu 38756.1.1 ity of 3.412.2.7 [place] .3.717402 MD Haines8 [facility] 2022-06-19 2022-06-19 Orders Luis Angel, 1.2.840.1 [id number] Univers 00:00:00 00:00:00 Only Maria Fernanda Fu 24635.1.1 ity of 3.412.2.7 [place] .3.606010 MD Haines8 [facility] 2022-06-07 2022-06-07 [facility], 1.2.840.1 [id number] [facility] 09:35:06 23:59:00 Encounter Stella 71488.1.1 ity of 3.412.2.7 [place] .3.076553 MD Haines8 [facility] 2022-06-07 2022-06-07 [facility] 1.2.840.1 [id number] Univers 09:35:06 23:59:00 Encounter Stella 07490.1.1 ity of 3.412.2.7 [place] .3.067637 MD Haines8 [facility] 2022-06-07 2022-06-07 Follow-Up Luis Angel, 1.2.840.1 [id number] Univers 12:00:00 14:14:09 Maria Fernanda Cervantes. 66423.1.1 ity of 3.412.2.7 [place] .3.039177 MD Beasley [facility] 2022-06-07 2022-06-07 Follow-Up NICHOLE Luis Angel, 1.2.840.1 [id number] Univers 12:00:00 14:14:09 Maria Fernanda V. 93164.1.1 ity of 3.412.2.7 [place] .3.950414 MD Beasley [facility] 2022-06-07 2022-06-07 Ancillary Amber, 1.2.840.1 [id number] Univers 07:00:00 09:30:00 Procedure Stella 99492.1.1 ity of 3.412.2.7 [place] .3.276823 MD Beasley [facility] 2022-06-07 2022-06-07 Ancillary NICHOLE Clark, 1.2.840.1 [id number] [id number] Univers 07:00:00 09:30:00 Procedure Stella 20243.1.1 ity of 3.412.2.7 [place] .3.751541 MD Beasley [facility] 2022-06-07 2022-06-07 Orders Amber, 1.2.840.1 [id number] Univers 00:00:00 00:00:00 Only Stella 44385.1.1 it y of 3.412.2.7 [place] .3.592907 MD Beasley [facility] 2022-06-07 2022-06-07 Raul Washington, 1.2.840.1 [id number] Univers 00:00:00 00:00:00 Only Maria Fernanda V. 35925.1.1 ity of 3.412.2.7 [place] .3.535525 MD Beasley [facility] 2022-06-07 2022-06-07 Travel 1.2.840.1 1.2.218.845 [id number] Univers 00:00:00 00:00:00 91580.1.1 350.1.13.41 ity of 3.412.2.7 [place]3.698 [place] .3.109[place] 084.8 MD Beasley [facility] 2022-06-07 2022-06-07 Raul Clark, 1.2.840.1 [id number] Univers 00:00:00 00:00:00 Only Stella 56094.1.1 it y of 3.412.2.7 [place] .3.125544 MD Beasley [facility] 2022-06-07 2022-06-07 Raul [place], 1.2.840.1 [id number] Univers 00:00:00 00:00:00 Only Maria Fernanda Fu 80778.1.1 ity of 3.412.2.7 [place] .3.782822 MD Beasley [facility] 2022-06-07 2022-06-07 Travel 1.2.840.1 1.2.067.494 8237 [id number] Univers 00:00:00 00:00:00 23494.1.1 350.1.13.41 ity of 3.412.2.[place].3.698 [place] .3.433036 084.8 MD Beasley [facility] 2022-05-09 2022-05-09 Telephone Fab, 1.2.840.1 [id number] 1099 [id number] Univers 00:00:00 00:00:00 Mini F 93301.1.1 ity of 3.412.2.7 [place] .3.690852 MD Beasley [facility] 2022-05-09 2022-05-09 Telephone Fab, 1.2.840.1 [id number] 1099 [id number] Univers 00:00:00 00:00:00 Mini F 67859.1.1 ity of 3.412.2.7 [place] .3.068003 MD Beasley [facility] 2022-05-03 2022-05-03 Raul Clark, 1.2.840.1 [id number] Univers 00:00:00 00:00:00 Only Stella 69890.1.1 it y of 3.412.2.7 [place] .3.910441 MD Beasley [facility] 2022-05-03 2022-05-03 Telephone Zulema Cedillo 1.2.840.1 [id number] 1 [id number] Univers 00:00:00 00:00:00 A 71196.1.1 ity of 3.412.2.7 [place] .3.969807 MD Haines8 [facility] 2022-05-03 2022-05-03 Raul Clark, 1.2.840.1 [id number] Univers 00:00:00 00:00:00 Only Stella 33860.1.1 it y of 3.412.2.7 [place] .3.537421 MD Haines8 [facility] 2022-05-03 2022-05-03 Telephone Zulema Cedillo 1.2.840.1 [id number] 1 [id number] Univers 00:00:00 00:00:00 A 04127.1.1 ity of 3.412.2.7 [place] .3.721741 MD Haines8 [facility] 2021-12-28 2021-12-28 Nurse Willis, 1.2.840.1 [id number] [id number] Univers 00:00:00 00:00:00 Triage Constantine 78727.1.1 ity of 3.412.2.7 [place] .3.190580 MD Haines8 [facility] 2021-12-28 2021-12-28 Vicat Luis Angel, 1.2.840.1 [id number] Univers 00:00:00 00:00:00 ion Maria Fernanda V. 02881.1.1 ity of 3.412.2.7 [place] .3.371459 MD Haines8 [facility] 2021-12-28 2021-12-28 Nurse Willis 1.2.840.1 [id number] 1094 [id number] Univers 00:00:00 00:00:00 Triage Constantine 25370.1.1 ity of 3.412.2.7 [place] .3.675448 MD Haines8 [facility] 2021-12-28 2021-12-28 Documentat Fossrachael, 1.2.840.1 [id number] 1 [id number] Univers 00:00:00 00:00:00 ion Maria Fernanda Fu 70574.1.1 ity of 3.412.2.7 [place] .3.781472 MD Haines8 [facility] 2021-12-20 2021-12-20 Telephone Hersoni, 1.2.840.1 [id number] 1 [id number] Univers 00:00:00 00:00:00 Lolita 01597.1.1 ity of Ethelda 3.412.2.7 [place] .3.222654 MD Haines8 [facility] 2021-12-20 2021-12-20 Telephone Hersoni, 1.2.840.1 [id number] 1 [id number] Univers 00:00:00 00:00:00 Lolita 14520.1.1 ity of Ethelda 3.412.2.7 [place] .3.958739 MD Haines8 [facility] 2021-12-11 2021-12-11 Telephone Nuvia, 1.2.840.1 [id number] [id number] Univers 00:00:00 00:00:00 Bibiana Trevino 77646.1.1 ity of 3.412.2.7 [place] .3.469789 MD Haines8 [facility] 2021-12-11 2021-12-11 Telephone Nuvia, 1.2.840.1 [id number] 1093 [id number] Univers 00:00:00 00:00:00 Bibiana Trevino 94871.1.1 ity of 3.412.2.7 [place] .3.047797 MD Haines8 [facility] 2021-12-05 2021-12-05 Telephone Tyson 1.2.840.1 [id number] 1093 [id number] Univers 00:00:00 00:00:00 Kasie Lehman 07663.1.1 i ty of 3.412.2.7 [place] .3.715468 MD Haines8 [facility] 2021-12-05 2021-12-05 Telephone Tyson, 1.2.840.1 [id number] 1093 [id number] Univers 00:00:00 00:00:00 Kasie Lehman 64127.1.1 i ty of 3.412.2.7 [place] .3.993689 MD Haines8 [facility] 2021-12-01 2021-12-01 Nurse Olivares, 1.2.840.1 [id number] Univers 00:00:00 00:00:00 Triage Erin Lehman 13478.1.1 i ty of 3.412.2.7 [place] .3.648649 MD Haines8 [facility] 2021-12-01 2021-12-01 Nurse Olivares, 1.2.840.1 [id number] Univers 00:00:00 00:00:00 Triage Erin Lehman 35782.1.1 i ty of 3.412.2.7 [place] .3.132847 MD Haines8 [facility] 2021-11-13 2021-11-13 Raul Clark, 1.2.840.1 [id number] Univers 00:00:00 00:00:00 Only Stella 05376.1.1 it y of 3.412.2.7 [place] .3.377633 MD Haines8 [facility] 2021-11-13 2021-11-13 Telephone Edmund, 1.2.840.1 [id number] 1092 [id number] Univers 00:00:00 00:00:00 Daisy Zimmerman 86917.1.1 it y of 3.412.2.7 [place] .3.261473 MD Haines8 [facility] 2021-11-13 2021-11-13 Raul Clark 1.2.840.1 [id number] Univers 00:00:00 00:00:00 Only Stella 70603.1.1 it y of 3.412.2.7 [place] .3Yancy240250 MD Beasley [facility] 2021-11-13 2021-11-13 Telephone Edmund, 1.2.840.1 [id number] 1092 [id number] Univers 00:00:00 00:00:00 Daisy N 30880.1.1 it y of 3.412.2.7 [place] .3.400288 .8 [facility] 2021-11-02 2021-11-02 Fito Huber 1.2.840.1 [id number] 1092 [id number] Univers 00:00:00 00:00:00 Only Herrera 56754.1.1 ity of 3.412.2.7 [place] .3.904909 .8 [facility] 2021-11-02 2021-11-02 Karishma Haider 1.2.840.1 [id number] 10 [id number] Univers 00:00:00 00:00:00 Triage J 52422.1.1 ity of 3.412.2.7 [place] .3.336831 .8 [facility] 2021-11-02 2021-11-02 Fito Huber 1.2.840.1 [id number] [id number] Univers 00:00:00 00:00:00 Only Herrera 73278.1.1 ity of 3.412.2.7 [place] .3.412841 .8 [facility] 2021-11-02 2021-11-02 Karishma Haider 1.2.840.1 [id number] 10 [id number] Univers 00:00:00 00:00:00 Triage J 89120.1.1 ity of 3.412.2.7 [place] .3.455507 .8 [facility] 2021-10-15 2021-10-24 [facility] Ver[facility]ica Thakkar 1.2.840.1 [id number] Univers 09:35:00 17:00:00 Encounter Thelma Bowser 73858.1.1 ity of Judy, Ed 3.412.2.7 Gio as Tod Glass V. .3.966734 Boni Dominguez .8 [facility] 2021-10-15 2021-10-24 [facility] Verónica Thakkar 1.2.840.1 [id number] Univers 09:35:00 17:00:00 Encounter Napoleon, Mayoshirley 74976.1.1 ity of Kheder, Ed 3.412.2.7 Gio as Tod Glass V. .3.033325 Boni Dominguez .8 [facility] 2021-10-24 2021-10-24 Nurse Jackson, 1.2.840.1 [id number] Univers 00:00:00 00:00:00 Triage Amsha 79109.1.1 ity of 3.412.2.7 [place] .3.391890 .8 [facility] 2021-10-24 2021-10-24 Nurse Jackson, 1.2.840.1 [id number] Univers 00:00:00 00:00:00 Triage Amsha 27542.1.1 ity of 3.412.2.7 [place] .3.193936 .8 [facility] 2021-10-23 2021-10-23 Inpatient ANUJ OBRIEN [facility] [id number] 20:59:49 21:16:07 BONI zimmerman 2021-10-19 2021-10-19 Surgery Rod, 1.2.840.1 [id number] Univers 15:10:00 15:50:00 Gibbons 32901.1.1 ity of Ali 3.412.2.7 [place] .3.161916 MD Haines8 [facility] 2021-10-19 2021-10-19 Surgery Rod, 1.2.840.1 [id number] Univers 15:10:00 15:50:00 Gibbons 64738.1.1 ity of Ali 3.412.2.7 [place] .3.505477 MD Haines8 [facility] 2021-10-19 2021-10-19 Anesthesia Jenise Degroot 1.2.840.1 [id number] Univers 13:24:00 13:49:00 Event Dhiraj Fry 94359.1.1 ity of 3.412.2.7 [place] .3.212754 .8 [facility] 2021-10-19 2021-10-19 Anesthesia Jenise Degroot 1.2.840.1 [id number] [facility] 13:24:00 13:49:00 Event Dhiraj Fry 00742.1.1 ity of 3.412.2.7 [place] .3.803945 .8 [facility] 2021-10-18 2021-10-18 Prep for O'Brandon, 1.2.840.1 [id number] Univers 00:00:00 00:00:00 Surgery Shena 28279.1.1 [place] .3.099754 .8 [facility] 2021-10-18 2021-10-18 Prep for O'Brandon, 1.2.840.1 [id number] Univers 00:00:00 00:00:00 Surgery Shena 69039.1.1 [place] .3.545825 .8 [facility] 2021-10-17 2021-10-17 Inpatient EL MARIA LUISA, SON MDA MDA [id number] 11:46:00 11:46:04 Bakari zimmerman 2021-10-16 2021-10-16 Inpatient EL CORDELLELLA, MDA MDA [id number] 14:52:17 14:52:20 MARIA FERNANDA zimmerman 2021-10-16 2021-10-16 Inpatient EL FOSSELLA, MDA MDA [id number] 10:37:11 10:37:14 MARIA FERNANDA zimmerman 2021-10-16 2021-10-16 Inpatient EL CORDELLELLA, MDA MDA [id number] 10:05:03 10:05:06 MARIA FERNANDA zimmerman 2021-10-15 2021-10-15 Inpatient EL JUDY, ED MDA MDA [id number] 23:20:17 23:40:10 Bakari zimmerman 2021-10-15 2021-10-15 Travel 1.2.840.1 1.2.410.346 [id number] Univers 00:00:00 00:00:00 89947.1.1 350.1.13.41 ity of 3.412.2.7 [place]3.698 [place] .3.912417 084.8 MD Beasley [facility] 2021-10-15 2021-10-15 Travel 1.2.840.1 1.2.019.301 3665 [id number] Univers 00:00:00 00:00:00 88192.1.1 350.1.13.41 ity of 3.412.2.7 2[place]7.3.698 [place] .3.554701 084.8 MD Beasley [facility] 2021-10-11 2021-10-11 Raul Clark, 1.2.840.1 [id number] Univers 00:00:00 00:00:00 Only Stella 25157.1.1 it y of 3.412.2.7 [place] .3.093122 MD Beasley [facility] 2021-10-11 2021-10-11 Orders Amber, 1.2.840.1 [id number] Univers 00:00:00 00:00:00 Only Stella 95339.1.1 it y of 3.412.2.7 [place] .3.678551 MD Beasley [facility] 2021-10-10 2021-10-10 Orders Shantal 1.2.840.1 [id number] Univers 00:00:00 00:00:00 Only Kaylyn, 48292.1.1 ity of Deshawn 3.412.2.7 [place] .3.563172 MD [facility]asley [facility] 2021-10-10 2021-10-10 Nurse Moran 1.2.840.1 [id number] Univers 00:00:00 00:00:00 Triage Stella F 60304.1.1 ity of 3.412.2.7 [place] .3.196608 MD Beasley [facility] 2021-10-10 2021-10-10 Uzma Thrasher 1.2.840.1 [id number] [id number] Univers 00:00:00 00:00:00 Ileana Ann 69395.1.1 i ty of 3.412.2.7 [place] .3.173577 MD Haines8 [facility] 2021-10-10 2021-10-10 Orders Shantal 1.2.840.1 [id number] Univers 00:00:00 00:00:00 Only Kaylyn, 07037.1.1 ity of Deshawn 3.412.2.7 [place] .3.135913 MD Haines8 [facility] 2021-10-10 2021-10-10 Nurse Dean 1.2.840.1 [id number] Univers 00:00:00 00:00:00 Triage Stella Stewart 56985.1.1 ity of 3.412.2.7 [place] .3.791760 MD Haines8 [facility] 2021-10-10 2021-10-10 Uzma Thrasher 1.2.840.1 [id number] [id number] Univers 00:00:00 00:00:00 Ileana Ann 20610.1.1 i ty of 3.412.2.7 [place] .3.276584 MD Haines8 [facility] 2021-09-03 2021-09-07 [facility] 1.2.840.1 [id number] Univers 16:59:00 15:45:00 Encounter Mehrdad Rod 55794.1.1 ity of Gurpreet Estes 3.412.2.7 [place] .3.492693 MD Haines8 [facility] 2021-09-03 2021-09-07 [facility] 1.2.840.1 [id number] Univers 16:59:00 15:45:00 Encounter Mehrdad Rod 18323.1.1 ity of Gurpreet Estes 3.412.2.7 [place] .3.149488 MD Haines8 [facility] 2021-09-07 2021-09-07 Travel 1.2.840.1 1.2.590.273 5030 [id number] Univers 00:00:00 00:00:00 50512.1.1 350.1.13.41 ity of 3.412.2.7 2.[place]7.3.698 [place] .3.540787 084.8 MD Beasley [facility] 2021-09-07 2021-09-07 Travel 1.2.840.1 1.2.312.615 6233 [id number] Univers 00:00:00 00:00:00 38356.1.1 350.1.13.41 ity of 3.412.2.7 2.2[place]7.3.698 [place] .3.110288 084.8 MD Beasley [facility] 2021-09-05 2021-09-05 Aidan HART MDA MDA [id number] 11:14:45 11:38:29 DANISH [facility] 2021-09-03 2021-09-03 Travel 1.2.840.1 1.2.943.201 [id number] [facility] 00:00:00 00:00:00 69556.1.1 350.1.13.41 ity of 3.412.2.7 2.2[place]7.3.698 [place] .3.451407 084.8 MD Beasley [facility] 2021-09-03 2021-09-03 Uzma Lopez 1.2.840.1 [id number] [id number] Univers 00:00:00 00:00:00 Michael Lehman 13091.1.1 ity of 3.412.2.7 [place] .3.672952 MD Beasley [facility] 2021-09-03 2021-09-03 Travel 1.2.840.1 1.2.176.998 1382 [id number] Univers 00:00:00 00:00:00 78102.1.1 350.1.13.41 ity of 3.412.2.7 2.2.7.3.698 [place] .3.788692 084.8 MD Beasley [facility] 2021-09-03 2021-09-03 Telephone John, 1.2.840.1 [id number] Univers 00:00:00 00:00:00 Michael Lehman 46339.1.1 ity of 3.412.2.7 [place] .3.840028 MD Haines8 [facility] 2021-08-22 2021-08-22 Telephone Amber, 1.2.840.1 [id number] [id number] Univers 00:00:00 00:00:00 Stella 55992.1.1 it y of 3.412.2.7 [place] .3.614068 MD Haines8 [facility] 2021-08-22 2021-08-22 Orders Amber 1.2.840.1 [id number] Univers 00:00:00 00:00:00 Only Stella 09506.1.1 it y of 3.412.2.7 [place] .3.065752 MD Haines8 [facility] 2021-08-20 2021-08-20 Orders Fab 1.2.840.1 [id number] Univers 00:00:00 00:00:00 Only Lela Ramírez 06604.1.1 ity of 3.412.2.7 [place] .3.066766 MD Haines8 [facility] 2021-08-18 2021-08-18 Raul Clark 1.2.840.1 [id number] Univers 00:00:00 00:00:00 Only Stella 64922.1.1 it y of 3.412.2.7 [place] .3.786186 MD Haines8 [facility] 2021-08-18 2021-08-18 Orders Luis Angel 1.2.840.1 [id number] Univers 00:00:00 00:00:00 Only Maria Fernanda Fu 84231.1.1 ity of 3.412.2.7 [place] .3.028509 MD Haines8 [facility] 2021-08-17 2021-08-17 Telephone Zulema Cedillo 1.2.840.1 [id number] 1 [id number] Univers 00:00:00 00:00:00 A 90839.1.1 ity of 3.412.2.7 [place] .3.620427 MD Beasley [facility] 2021-08-14 2021-08-14 Office NICHOLE Piedra, 1.2.840.1 [id number] Univers 12:15:00 13:20:09 Visit Herrera 96088.1.1 ity of 3.412.2.7 [place] .3.441189 MD [facility] 2021-08-14 2021-08-14 Office NICHOLE [place], 1.2.840.1 [id number] Univers 08:30:00 10:28:29 Visit Maria Fernanda Fu 31608.1.1 ity of 3.412.2.7 [place] .3.137040 MD [facility] 2021-08-14 2021-08-14 Raul Banda, 1.2.840.1 [id number] Univers 00:00:00 00:00:00 Only Jacki 75422.1.1 ity of 3.412.2.7 [place] .3.612356 MD [facility] 2021-08-14 2021-08-14 Raul Duckworth, 1.2.840.1 [id number] Univers 00:00:00 00:00:00 Only Sarah Ybarra 58276.1.1 ity of 3.412.2.7 [place] .3.435641 MD [facility] 2021-08-14 2021-08-14 Travel 1.2.840.1 1.2.747.162 [id number] Univers 00:00:00 00:00:00 15996.1.1 350.1.13.41 ity of 3.412.2.[place]3.698 [place] .3.070207 084.8 MD [facility] 2021-08-13 2021-08-13 [facility] 1.2.840.1 [id number] Univers 09:45:00 23:59:00 Encounter 21338.1.1 it y of 3.412.2.7 [place] .3.895659 MD [facility] 2021-08-13 2021-08-13 [facility] NICHOLE [place], 1.2.840.1 [id number] Univers 06:35:00 09:44:00 Encounter Nicole 02807.1.1 it y of [place] 3.412.2.7 [place] .3.259882 MD [facility] 2021-08-13 2021-08-13 [facility] [place], 1.2.840.1 [id number] Univers 00:00:00 00:00:00 Only Nicole 58730.1.1 ity of [place] 3.412.2.7 [place] .3.881249 MD [facility] 2021-08-13 2021-08-13 Travel 1.2.840.1 1.2.043.254 [id number] Univers 00:00:00 00:00:00 93676.1.1 350.1.13.41 ity of 3.412.2.7 [place]3.698 [place] .3.045678 084.8 MD [facility] 2021-08-11 2021-08-11 Angel [place], 1.2.840.1 [id number] Univers 00:00:00 00:00:00 Maria Fernanda Fu 76740.1.1 ity of 3.412.2.7 [place] .3.135226 MD [facility] 2021-08-07 2021-08-07 Raul Fenton, 1.2.840.1 [id number] Univers 00:00:00 00:00:00 Only Abdirizak 36243.1.1 ity of 3.412.2.7 [place] .3.553793 MD [facility] 2021-07-27 2021-07-27 Uzma Farias 1.2.840.1 [id number] 1 [id number] Univers 00:00:00 00:00:00 Génesis Ann 91395.1.1 ity of 3.412.2.7 [place] .3.984751 MD Haines8 [facility] 2021-07-27 2021-07-27 Refzuleyka Clark, 1.2.840.1 [id number] Univers 00:00:00 00:00:00 Stella 50869.1.1 it y of 3.412.2.7 [place] .3.164970 MD Haines8 [facility] 2021-07-26 2021-07-26 Telephone Marcderrick, 1.2.840.1 [id number] 1 [id number] Univers 00:00:00 00:00:00 Génesis Trevino 04809.1.1 ity of 3.412.2.7 [place] .3.445984 MD Haines8 [facility] 2021-07-26 2021-07-26 Orders Andrea, 1.2.840.1 [id number] Univers 00:00:00 00:00:00 Only Jackie 93997.1.1 ity of 3.412.2.7 [place] .3.602550 MD [facility]8 [facility] [facility] 2021-07-26 2021-07-26 Refzuleyka Clark, 1.2.840.1 [id number] 0546 Univers 00:00:00 00:00:00 Stella 52812.1.1 it y of 3.412.2.7 [place] .3.069835 MD Haines8 [facility] 2021-07-19 2021-07-19 Telephone Edmund, 1.2.840.1 [id number] [id number] Univers 00:00:00 00:00:00 Daisy Zimmerman 16344.1.1 it y of 3.412.2.7 [place] .3.924022 MD Haines8 [facility] 2021-07-12 2021-07-12 Telephone Amber, 1.2.840.1 [id number] 1088 [id number] Univers 00:00:00 00:00:00 Stella 23572.1.1 it y of 3.412.2.7 [place] .3Yancy932607 MD Haines8 [facility] 2021-07-11 2021-07-11 Raul Clark, 1.2.840.1 [id number] 9330 Univers 00:00:00 00:00:00 Only Stella 38593.1.1 it y of 3.412.2.7 [place] .3Yancy339767 MD Haines8 [facility] 2021-07-11 2021-07-11 Telephone Price, 1.2.840.1 [id number] 1088 [id number] Univers 00:00:00 00:00:00 Ileana Ann 77446.1.1 i ty of 3.412.2.7 [place] .3Yancy927289 MD Haines8 [facility] 2021-07-02 2021-07-02 Raul Clark, 1.2.840.1 [id number] 3538 Univers 00:00:00 00:00:00 Only Stella 17067.1.1 it y of 3.412.2.7 [place] .3.446208 MD Haines8 [facility] 2021-06-27 2021-06-27 Raul Clark, 1.2.840.1 [id number] 1667 Univers 00:00:00 00:00:00 Only Stella 54580.1.1 it y of 3.412.2.7 [place] .3Yancy950817 MD Beasley [facility] 2021-06-25 2021-06-25 Raul Clark 1.2.840.1 [id number] 9480 Univers 00:00:00 00:00:00 Only Stella 32412.1.1 it y of 3.412.2.7 [place] .3Yancy368794 MD Haines8 [facility] 2021-06-14 2021-06-14 Telephone Ger, 1.2.840.1 [id number] 1 [id number] Univers 00:00:00 00:00:00 Lolita 77248.1.1 ity of [place] 3.412.2.7 [place] .3.767623 MD Haines8 [facility] 2021-06-11 2021-06-11 Raul Clark, 1.2.840.1 [id number] 8761 Univers 00:00:00 00:00:00 Only Stella 73347.1.1 it y of 3.412.2.7 [place] .3.827637 MD Haines8 [facility] 2021-06-09 2021-06-09 Angel Rivas, 1.2.840.1 [id number] Univers 00:00:00 00:00:00 Yudith Lehman 25218.1.1 ity of 3.412.2.7 [place] .3.864118 MD Haines8 [facility] 2021-06-06 2021-06-06 Telephone Anais, 1.2.840.1 [id number] 1 [id number] Univers 00:00:00 00:00:00 Génesis Trevino 50345.1.1 ity of 3.412.2.7 [place] .3.876192 MD Haines8 [facility] 2021-05-21 2021-05-21 [facility], 1.2.840.1 [id number] 2620 Univers 14:50:00 15:20:00 Claude 49482.1.1 ity of 3.412.2.7 [place] .3.777929 MD Haines8 [facility] 2021-05-21 2021-05-21 [facility], 1.2.840.1 [id number] 68502 Univers 12:54:00 13:30:00 Encounter Claude 29107.1.1 it y of 3.412.2.7 [place] .3.531121 MD Haines8 [facility] 2021-05-21 2021-05-21 Travel 1.2.840.1 1.2.698.920 2198 [id number] Univers 00:00:00 00:00:00 90047.1.1 350.1.13.41 ity of 3.412.2.7 [place]7.3.698 [place] .3.002368 084.8 MD Haines8 [facility] 2021-05-17 2021-05-17 Prep for Yannick, 1.2.840.1 [id number] Univers 00:00:00 00:00:00 Surgery Elmira Erasmo 28844.1.1 it y of 3.412.2.7 [place] .3.180619 MD Haines8 [facility] 2021-05-17 2021-05-17 Raul Clark, 1.2.840.1 [id number] 4635 Univers 00:00:00 00:00:00 Only Stella 98189.1.1 it y of 3.412.2.7 [place] .3.979167 MD Haines8 [facility] 2021-05-16 2021-05-16 Raul Clark, 1.2.840.1 [id number] 5453 Univers 00:00:00 00:00:00 Only Stella 15689.1.1 it y of 3.412.2.7 [place] .3.511504 MD Haines8 [facility] 2021-05-16 2021-05-16 Telephone Ger, 1.2.840.1 [id number] 1 [id number] Univers 00:00:00 00:00:00 Lolita 24619.1.1 ity of [place] 3.412.2.7 [place] .3.071920 MD Beasley [facility] 2021-05-16 2021-05-16 Telephone Ger, 1.2.840.1 [id number] 1 [id number] Univers 00:00:00 00:00:00 Lolita 02007.1.1 ity of [place] 3.412.2.7 [place] .3.824579 MD Beasley [facility] 2021-05-14 2021-05-14 Raul Javed 1.2.840.1 [id number] 8912 Univers 00:00:00 00:00:00 Only Giovanna Tanner 50668.1.1 i ty of 3.412.2.7 [place] .3.531637 MD Beasley [facility] 2021-04-27 2021-04-27 Orders Amber, 1.2.840.1 [id number] 3823 Univers 00:00:00 00:00:00 Only Stella 74730.1.1 it y of 3.412.2.7 [place] .3.574698 MD Haines8 [facility] 2021-04-25 2021-04-25 Orders Amber, 1.2.840.1 [id number] 5291 Univers 00:00:00 00:00:00 Only Stella 27401.1.1 it y of 3.412.2.7 [place] .3.553361 MD Haines8 [facility] 2021-04-23 2021-04-23 [facility] Tejinder Raymundo 1.2.840.1 [id number] Univers 09:38:02 23:59:00 Encounter 13407.1.1 it y of 3.412.2.7 [place] .3.235393 MD Haines8 [facility] 2021-04-23 2021-04-23 Raul Del Rosario 1.2.840.1 [id number] 1140 Univers 00:00:00 00:00:00 Only Nicole 12464.1.1 ity of [place] 3.412.2.7 [place] .3.711621 MD Haines8 [facility] 2021-04-23 2021-04-23 Raul Del Rosario 1.2.840.1 [id number] 1051 Univers 00:00:00 00:00:00 Only Nicole 24996.1.1 ity of [place] 3.412.2.7 [place] .3.841039 MD Haines8 [facility] 2021-04-23 2021-04-23 Raul Del Rosario 1.2.840.1 [id number] 7337 Univers 00:00:00 00:00:00 Only Nicole 28542.1.1 ity of [place] 3.412.2.7 [place] .3.791349 MD Haines8 [facility] 2021-04-23 2021-04-23 Orders Del Rosario, 1.2.840.1 [id number] 4264 Univers 00:00:00 00:00:00 Only Nicole 89784.1.1 ity of Jri 3.412.2.7 [place] .3.490401 MD Beasley [facility] 2021-04-23 2021-04-23 Travel 1.2.840.1 1.2.933.321 6489 [id number] Univers 00:00:00 00:00:00 11400.1.1 350.1.13.41 ity of 3.412.2.7 [place].3.698 [place] .3.853[place] 084Ramos Beasley [facility] 2021-04-20 2021-04-20 [facility], 1.2.840.1 [id number] 095 [id number] Univers 11:46:55 23:59:00 Encounter Maria Fernanda Fu 55334.1.1 i ty of 3.412.2.7 [place] .3.676303 MD Beasley [facility] 2021-04-20 2021-04-20 [facility], 1.2.840.1 [id number] 10 [id number] Univers 09:15:00 11:00:00 Procedure Maria Fernanda Fu 82374.1.1 i ty of 3.412.2.7 [place] .3.445521 MD Beasley [facility] 2021-04-20 2021-04-20 Travel 1.2.840.1 1.2.129.889 5737 [id number] Univers 00:00:00 00:00:00 54132.1.1 350.1.13.41 ity of 3.412.2.7 2.[place]7.3.698 [place] .3.8002[place] 084Yancy8 MD Beasley [facility] 2021-04-16 2021-04-16 [facility], 1.2.840.1 [id number] 1 [id number] Univers 09:30:00 23:59:00 Encounter Mary Beth Ann 30300.1.1 i ty of 3.412.2.7 [place] .3.489540 MD Beasley [facility] 2021-04-16 2021-04-16 Office NICHOLE Monreal, 1.2.840.1 [id number] 2311 Univers 09:00:00 10:36:47 Visit Herrera 11936.1.1 ity of 3.412.2.7 [place] .3.552917 MD Haines8 [facility] 2021-04-16 2021-04-16 Travel 1.2.840.1 1.2.123.554 5915 [id number] Univers 00:00:00 00:00:00 02838.1.1 350.1.13.41 ity of 3.412.2.7 2.[place].7.3.698 [place] .3.032265 084.8 MD Haines8 [facility] 2021-04-13 2021-04-13 Orders Enzo, 1.2.840.1 [id number] 2058 Univers 00:00:00 00:00:00 Only Wayne 14530.1.1 ity of 3.412.2.7 [place] .3.607390 MD Haines8 [facility] 2021-04-07 2021-04-07 Raul Murguia 1.2.840.1 [id number] 5865 Univers 00:00:00 00:00:00 Only Kaylyn, 81257.1.1 ity of [place]hawn 3.412.2.7 [place] .3.584317 MD Haines8 [facility] 2021-04-07 2021-04-07 Nurse Brandon, 1.2.840.1 [id number] Univers 00:00:00 00:00:00 Triage Juan Lehman 22184.1.1 it y of 3.412.2.7 [place] .3.714940 MD Haines8 [facility] 2021-04-05 2021-04-05 Raul Clark, 1.2.840.1 [id number] 6615 Univers 00:00:00 00:00:00 Only Stella 90076.1.1 it y of 3.412.2.7 [place] .3.500324 MD Haines8 [facility] 2021-04-04 2021-04-04 Angel Gonzalez, 1.2.840.1 [id number] 0962 Univers 00:00:00 00:00:00 Gurpreet Ramírez 15029.1.1 it y of 3.412.2.7 [place] .3.015315 MD Haines8 [facility] 2021-04-04 2021-04-04 Gabrielle Osborne 1.2.840.1 [id number] 10 [id number] Univers 00:00:00 00:00:00 Graciela 51569.1.1 ity of 3.412.2.7 [place] .3.247771 MD Haines8 [facility] 2021-04-03 2021-04-03 Gillian Marr, 1.2.840.1 [id number] Univers 14:00:00 14:00:00 Alina 08162.1.1 ity of 3.412.2.7 [place] .3.680190 MD Beasley [facility] 2021-03-30 2021-03-30 Raul Clark 1.2.840.1 [id number] 6815 Univers 00:00:00 00:00:00 Only Stella 22967.1.1 it y of 3.412.2.7 [place] .3.469598 MD Beasley [facility] 2021-03-29 2021-03-29 Raul Clark 1.2.840.1 [id number] 0297 Univers 00:00:00 00:00:00 Only Stella 33126.1.1 it y of 3.412.2.7 [place] .3.341797 MD Beasley [facility] 2021-03-27 2021-03-27 Raul Clark 1.2.840.1 [id number] 1842 Univers 00:00:00 00:00:00 Only Stella 33559.1.1 it y of 3.412.2.7 [place] .3.510019 MD Beasley [facility] 2021-03-27 2021-03-27 Refzuleyka Santillan, 1.2.840.1 [id number] 1084 [id number] Univers 00:00:00 00:00:00 Wilfredo Stewart 60982.1.1 ity of 3.412.2.7 [place] .3.521836 MD Haines8 [facility] 2021-03-09 2021-03-09 Raul Perez, 1.2.840.1 [id number] 5214 Univers 00:00:00 00:00:00 Only Tanja Mora 91923.1.1 ity of 3.412.2.7 [place] .3.161069 MD Haines8 [facility] 2021-03-08 2021-03-08 Raul Clark, 1.2.840.1 [id number] 8876 Univers 00:00:00 00:00:00 Only Stella 01886.1.1 it y of 3.412.2.7 [place] .3.989365 MD Haines8 [facility] 2021-03-07 2021-03-07 Raul Perez, 1.2.840.1 [id number] 6250 Univers 00:00:00 00:00:00 Only Tanja Mora 66130.1.1 ity of 3.412.2.7 [place] .3.481087 MD Haines8 [facility] 2021-03-07 2021-03-07 Documentat Precious, 1.2.840.1 [id number] [id number] Univers 00:00:00 00:00:00 lino Diane 31895.1.1 ity of 3.412.2.7 [place] .3.551335 MD Haines8 [facility] 2021-03-07 2021-03-07 Angel Rivas 1.2.840.1 [id number] [id number] Univers 00:00:00 00:00:00 Yudith Lehman 23189.1.1 ity of 3.412.2.7 [place] .3.610177 MD Haines8 [facility] 2021-03-07 2021-03-07 Documentat Shivam 1.2.840.1 [id number] Univers 00:00:00 00:00:00 lino Shoemaker 38725.1.1 [place] 3.412.2.7 [place] .3.727636 .8 [facility] 2021-02-16 2021-03-02 Inpatient UR SMITH, [facility] [id number] 13:50:00 18:30:00 IRINA Leesers o n 2021-03-02 2021-03-02 Inpatient EL SMITH, MDA MDA [id number] 10:28:13 10:52:29 IRINA Leesers o n 2021-03-01 2021-03-01 Inpatient EL GABRIELLE GONZALEZ [facility] MDA [id number] 13:48:32 14:24:14 Bakari o erasmo 2021-02-28 2021-02-28 Inpatient EL GABRIELLE GONZALEZ [facility] MDA [id number] 15:34:04 16:08:02 Bakari o erasmo 2021-02-27 2021-02-27 Inpatient EL FOSSELLA, MDA MDA [id number] 11:31:18 11:31:23 MARIA FERNANDA Villegas o erasmo 2021-02-23 2021-02-23 Inpatient EL LORRAINEDODY, MDA MDA [id number] 08:50:18 09:09:38 MARCIN Villegas o erasmo 2021-02-20 2021-02-20 Inpatient EL HALM, MDA MDA [id number] 21:52:07 22:45:31 MAYANK Leesers o erasmo 2021-02-19 2021-02-19 Inpatient EL HALM, MDA MDA [id number] 16:34:08 16:35:56 MAYANK Leesers o erasmo 2021-02-19 2021-02-19 Inpatient EL HALM, MDA MDA [id number] 14:32:55 14:50:27 MAYANK Leesers o erasmo 2021-02-19 2021-02-19 Inpatient EL FOSSELLA, MDA MDA [id number] 11:06:11 11:06:14 MARIA FERNANDA Villegas o erasmo 2021-02-18 2021-02-18 Inpatient EL HALM, MDA MDA [id number] 15:44:22 16:22:28 MAYANKJANY zimmerman 2021-02-17 2021-02-17 Inpatient EL TOD GALSS MDA MDA [id number] 03:53:53 04:06:50 Bakari zimmerman 2021-01-21 2021-01-30 Inpatient ER ODARO, [facility] [id number] 21:38:00 18:36:00 BENEDICTO zimmerman 2021-01-30 2021-01-30 Inpatient EL FOSSELLA, MDA MDA [id number] 15:18:04 15:18:06 MARIA FERNANDA zimmerman 2021-01-28 2021-01-28 Inpatient EL AL AMERI, MDA MDA [id number] 13:47:27 13:49:05 RASHAAD zimmerman 2021-01-25 2021-01-25 Inpatient EL AL AMERI, MDA MDA [id number] 20:37:26 20:37:30 RASHAAD zimmerman 2021-01-24 2021-01-24 Inpatient EL AL AMERI, MDA MDA [id number] 08:18:01 08:38:37 RAHSAAD zimmerman 2021-01-22 2021-01-22 Inpatient EL AL AMERI, MDA MDA [id number] 19:02:05 19:25:15 RASHAAD zimmerman 2021-01-04 2021-01-19 Inpatient ER SIMBAQUEBA [facility] [id number] 11:01:00 16:25:00 Levi RAJPUT 2021-01-18 2021-01-18 Inpatient EL FOSSELLA, MDA MDA [id number] 11:15:46 11:15:49 MARIA FERNANDA zimmerman 2021-01-15 2021-01-15 Inpatient EL FOSSELLA, MDA MDA [id number] 10:54:17 10:54:19 MARIA FERNANDA zimmerman 2021-01-14 2021-01-14 Inpatient EL RAMSEY, MDA MDA [id number] 12:12:50 13:22:39 JUAREZ zimmerman 2021-01-12 2021-01-12 Inpatient EL FOSSELLA, MDA MDA [id number] 11:16:26 11:16:28 MARIA FERNANDA zimmerman 2021-01-10 2021-01-10 Inpatient EL FOSSELLA, MDA MDA [id number] 12:34:26 12:34:30 MARIA FERNANDA zimmerman 2021-01-09 2021-01-09 Inpatient EL MEERA, MDA MDA [id number] MD 21:30:37 21:42:18 GURPREET zimmerman 2021-01-08 2021-01-08 Inpatient EL MEERA, MDA MDA [id number] MD 11:15:00 12:40:27 GURPREET zimmerman 2021-01-07 2021-01-07 Inpatient EL ALEXUS, MDA MDA [id number] 09:48:34 10:43:19 BONI zimmerman 2021-01-05 2021-01-05 Inpatient EL FOSSELLA, MDA MDA [id number] 10:28:44 10:28:46 MARIA FERNANDA zimmerman 2020-12-26 2020-12-26 Outpatient EL FOSSELLA, MDA MDA [id number] 13:17:22 13:49:03 MARIA FERNANDA zimmerman 2020-12-22 2020-12-22 Outpatient EL FOSSELLA, MDA MDA [id number] 15:44:28 15:44:28 MARIA FERNANDA zimmerman 2020-12-20 2020-12-20 Outpatient EL FOSSELLA, MDA MDA [id number] 14:45:38 15:10:28 MARIA FERNANDA zimmerman 2020-12-19 2020-12-19 Outpatient EL FOSSELLA, MDA MDA [id number] 15:02:13 15:33:05 MARIA FERNANDA zimmerman 2020-12-18 2020-12-18 Outpatient EL FOSSELLA, MDA MDA [id number] 14:30:00 23:59:00 MARIA FERNANDA zimmerman 2020-12-18 2020-12-18 Outpatient EL RAYMUDNO MARR MDA MDA [id number] 15:34:19 15:34:19 Bakari zimmerman 2020-12-18 2020-12-18 Outpatient EL FOSSELLA, MDA MDA [id number] 14:39:45 15:30:31 MARIA FERNANDA zimmerman 2020-12-15 2020-12-15 Outpatient EL FOSSELLA, MDA MDA [id number] 14:01:01 14:06:41 MARIA FERNANDA zimmerman 2020-11-20 2020-11-24 Inpatient X RUSSELL [facility]ENT [facility] [id number] Univers 00:18:00 16:31:00 [facility] 2020-10-26 2020-10-26 Outpatient R [facility] [id number] Univers 09:00:00 09:00:00 [facility] 2020-10-17 2020-10-17 Outpatient R DIOGO, [facility] [id number] Univers 09:30:00 09:30:00 JACKSON [facility] 2020-07-27 2020-07-27 Outpatient R BRANDY, [facility] [id number] Univers 14:30:00 14:30:00 ATTENDING [facility] 2020-07-05 2020-07-05 Outpatient EL ISABELMANOHAR, MDA MDA [id number] 10:29:44 10:55:21 HERRERA zimmerman 2020-04-28 2020-04-29 Inpatient HCAMN DANDRE [id number] [facility] 02:28:00 09:27:09 18 [facility] 2020-04-27 2020-04-27 Outpatient EL FOSSELLA, MDA MDA [id number] 06:26:24 06:26:24 MARIA FERNANDA zimmerman 2020-04-25 2020-04-25 Outpatient EL FOSSELLA, MDA MDA [id number] 15:16:25 23:59:00 MARIA FERNANDA zimmerman 2020-04-25 2020-04-25 Outpatient EL FOSSELLA, MDA MDA [id number] 16:52:13 16:52:13 MARIA FERNANDA zimmerman 2020-04-21 2020-04-21 Outpatient EL FOSSELLA, MDA MDA [id number] 12:34:59 15:51:01 MARIA FERNANDA zimmerman 2020-04-17 2020-04-17 Outpatient EL ROCKY RODRIGUEZ MDA MDA [id number] 11:29:21 23:59:00 Bakari zimmerman 2020-04-17 2020-04-17 Outpatient EL MDA MDA [id number] 09:00:09 11:28:00 Bakari zimmerman 2020-04-17 2020-04-17 Outpatient EL ROSA MARIA, MDA MDA [id number] MD 09:38:52 11:12:52 CODY zimmerman 2020-04-14 2020-04-14 Outpatient EL MDA MDA [id number] MD 11:14:57 23:59:00 Bakari zimmerman 2020-04-14 2020-04-14 Outpatient EL AURELIANO EDWARD MDA MDA [id number] MD 12:35:21 13:51:10 Bakari zimmerman 2020-04-14 2020-04-14 Outpatient EL MDA MDA [id number] MD 08:26:38 11:13:00 Bakarijanice zimmerman 2020-04-13 2020-04-13 Outpatient EL MDA MDA [id number] MD 15:45:00 23:59:00 Bakarijanice zimmerman 2020-04-13 2020-04-13 Outpatient EL MDA MDA [id number] MD 13:53:11 15:44:00 Bakari zimmerman 2020-04-13 2020-04-13 Outpatient EL MDA MDA [id number] MD 13:27:19 13:52:00 Bakarijanice zimmerman 2020-04-13 2020-04-13 Outpatient EL MDA MDA [id number] MD 10:45:00 13:26:00 Bakari zimmerman 2020-04-13 2020-04-13 Outpatient EL ROSA MARIA, MDA MDA [id number] MD 07:39:14 10:44:00 CODY zimmerman 2020-04-12 2020-04-12 Outpatient EL SHANELL, MDA MDA [id number] MD 12:45:00 23:59:00 ORACIO zimmerman 2020-04-11 2020-04-11 Outpatient EL BRENDON, MDA MDA [id number] MD 11:45:00 23:59:00 WILFREDO zimmerman 2020-04-11 2020-04-11 Outpatient EL BRENDON, MDA MDA [id number] MD 11:23:21 11:23:21 WILFREDO zimmerman 2020-03-31 2020-03-31 Outpatient EL YADIRA, MDA MDA [id number] MD 08:00:00 23:59:00 MAURICIO zimmerman 2020-03-31 2020-03-31 Outpatient EL ROSA MARIA, MDA MDA [id number] 08:51:09 09:59:36 CODY zimmerman 2020-03-20 2020-03-20 Outpatient EL ILIESCU, MDA MDA [id number] 10:02:47 10:02:47 ORACIO Bakari o n 2020-03-20 2020-03-20 Outpatient EL REGINA, MDA MDA [id number] 09:57:25 09:57:25 HAYLEY Bakari o n 2020-03-10 2020-03-10 Outpatient EL REGINA, MDA MDA [id number] 08:10:34 08:10:34 LATIRA Bakari o n 2020-03-02 2020-03-02 Outpatient EL REGINA, MDA MDA [id number] 12:40:44 23:59:00 REEIRA Bakari o n 2020-03-02 2020-03-02 Outpatient EL ILICALLIECU, MDA MDA [id number] MD 10:20:00 14:05:06 ORACIO Bakari o n 2020-03-02 2020-03-02 Outpatient EL REGINA, MDA MDA [id number] 12:15:00 12:39:00 HAYLEY Bakari o n 2020-03-02 2020-03-02 Outpatient EL ILILAWANDA, MDA MDA [id number] MD 10:29:25 10:29:25 ORACIO Bakari o n 2020-03-02 2020-03-02 Outpatient EL MDA MDA [id number] MD 10:00:01 10:00:10 Bakari o erasmo 2020-02-29 2020-02-29 Outpatient EL MDA MDA [id number] MD 13:58:52 14:24:33 Bakari zimmerman 2019-08-26 2019-08-26 Outpatient PASCALE Jaimes Chel [id number] [facility] 12:48:00 12:48:00 [facility] 2019-08-12 2019-08-15 Inpatient HCAMN DANDRE [id number] [facility] 20:09:00 22:33:31 69 [facility] Results Test Description Test Time Test Comments Results Result Comments Source T3 2022-06-07 17:30:06 Test Item Value Reference Range Interpretation Comme nts T3 Total (test code = 3053-6) 153 ng/dL 80-200 [facility] [id number] 17:30:06 Test Item Value Reference Range Interpretation Comments T3 Total (test code = 3053-6) 153 ng/dL 80-200 [facility] [id number] 16:45:54 Test Item Value Reference Range Interpretation Comments T4 Free (test code 1.01 ng/dL 0.93-1.70 Testing P erformed at [facility] = 3024-7) Lab Acidity Tester [facility], [address], [address], [address] [id number] 16:45:54 Test Item Value Reference Range Interpretation Comments T4 Free (test code 1.01 ng/dL 0.93-1.70 Testing P erformed at [facility] = 3024-7) Lab Acidity Tester [facility], [address], [address]TSH2022-12-09 16:45:52 Test Item Value Reference Range Interpretation Comments TSH (test code = 0.65 See_Comment Note: New M ethodology and 39513-2) Reference Range change effective 2017 at 1400 Testing Perform ed at [facility] Lab Acidity Tester [facility], [address], [place] [address] [Automated mess age] The system which ge nerated this result transmit lakhwinder reference range : 0.27 - 4.20 mcunit/mL. The reference range was not used to interpr et this result as paras l/abnormal. [facility] 16:45:52 Test Item Value Reference Range Interpretation Comments TSH (test code = 0.65 See_Comment Note: New M ethodology and 25225-4) Reference Range change effective 2017 at 1400 Testing Perform ed at [facility] Lab Acidity Tester [facility], [address], [place] [address] [Automated mess age] The system which ge nerated this result transmit lakhwinder reference range : 0.27 - 4.20 mcunit/mL. The reference range was not used to interpr et this result as paras l/abnormal. [facility] Atlanta[facility]raction[facility] [id number] 16:32:38 Test Item Value Reference Range Interpretation Comments Bili Total (test 0.4 mg/dL <=1.2 Indocyanine Green (ICG) code = 1974-07) may cause fal sely elevated biliru bin results. Total and direct bilirubin must not be measured from s amples containing indo cyanine green. False el evation of total bilirubin can be seen in patient s with IgG concentrations above 28 g/L.Testing Per formed at [facility] Lab [facility], [address], [address], [place] [address] Bili Direct (test <=0.3 Indocyanin e Green (ICG) code = 1967-12) may cause fal sely elevated biliru bin results. Total and direct bilirubin must not be measured from s amples containing indo cyanine green. Testing Performed at [facility] Lab [facility], [address] [place] [address], [address], [place] [address] Bili Indirect (test See Note 0.0-0.9 Unable t o calculate code = 1970-06) Indirect Bili ruffin result due to some par ameters are outside rep ortable rangeTesting Pe rformed at [facility], [address], [address], [place] [address] [facility] ElbertFractionated [id number] 16:32:38 Test Item Value Reference Range Interpretation Comments Bili Total (test 0.4 mg/dL See_Comment Indocyanine Green (ICG) code = 1974-07) may cause fal sely elevated biliru bin results. Total and direct bilirubin must not be measured from s amples containing indo cyanine green. False el evation of total bilirubin can be seen in patient s with IgG concentrations above 28 g/L.Testing Per formed at [facility], [address], [address], [place] [address] [Automate d message] The system [employer] generated this result transmitted ref erence range: <=1.2. T he reference range was not used to interpr et this result as normal/abnormal . Bili Direct (test See_Comment Indocyanin e Green (ICG) code = 1967-12) may cause fal sely elevated biliru bin results. Total and direct bilirubin must not be measured from s amples containing indo cyanine green. Testing Performed at [facility], [address], [address], [place] [address] [Autom ated message] The sy stem which generated this result transmitted ref erence range: <=0.3. T he reference range was not used to interpr et this result as normal/abnormal . Bili Indirect (test See Note 0.0-0.9 Unable t o calculate code = 1970-) Indirect Bili ruffin result due to some par ameters are outside rep ortable rangeTesting Pe rformed at [facility], [address], [place] [address] [facility] ElbertGlomerular Filtration Rate 2022-06-07 16:32:36 Test Item Value Reference Range Interpretation Comments eGFR (test code = 103 See_Comment The [place]cr [place] [address]) the 2020 CKD-EP I creatinine equation using creatinine, patient's age, and sex for adults 18 years of age and older. Other fa ctors, especially musc le mass, may affect accuracy and need to be considered.A ccording to the Kidney Dise ase: Improving Global Outcomes (KDIGO) CKD Work Group 2012 Clinical Practice Guidel ine, chronic kidney disease (CKD) is defined as the abnormalities of kidney struc ture or function, prese nt for more than 3 months, with implications fo r health. CKD should be class ified by cause, GFR vaibhav gory, and albuminuria cat egory. KDIGO guidelines prov eloy the following GFR c ategoriesStage Description GFR mL/min/1.73 m2G1* Normal or high >= 90G2* Mildly decrease d 60-89G3a Mildly to moder ately decreased 45-59 G3b Moderately to severely dec reased 30-44G4 Severely decrea sed 15-29G5 Kidney failure <15*In the absence of evid ence of kidney damage, neither G1 nor G2 fulfill criteri a for CKD. Testing Perform ed at [facility] Lab Acidity Tester dg, [address], [address], [place], [place] [address] [Automated message] The sy stem which generated this result transmitted ref erence range: >=60 mL/min/1.7 3 sq. m. The reference range was not used to interpret th is result as normal/abnormal . [facility] Atlanta[facility]omer[facility] Filtration Rate 2022-06-07 16:32:36 Test Item Value Reference Range Interpretation Comments eGFR (test code = 103 See_Comment The eGFRcr is calculated with 81389) the 2020 CKD-EP I creatinine equation using creatinine, patient's age, and sex for adults 18 years of age and older. Other fa ctors, especially musc le mass, may affect accuracy and need to be considered.A ccording to the Kidney Dise ase: Improving Global Outcomes (KDIGO) CKD Work Group 2012 Clinical Practice Guidel ine, chronic kidney disease (CKD) is defined as the abnormalities of kidney struc ture or function, prese nt for more than 3 months, with implications fo r health. CKD should be class ified by cause, GFR vaibhav gory, and albuminuria cat egory. KDIGO guidelines prov eloy the following GFR c ategoriesStage Description GFR mL/min/1.73 m2G1* Normal or high >= 90G2* Mildly decrease d 60-89G3a Mildly to moder ately decreased 45-59 G3b Moderately to severely dec reased 30-44G4 Severely decrea sed 15-29G5 Kidney failure <15*In the absence of evid ence of kidney damage, neither G1 nor G2 fulfill criteri a for CKD. Testing Perform ed at [facility] Lab Acidity Tester [facility], [address], [address], [place], [place] [address] [Automated message] The sy stem which generated this result transmitted ref erence range: >=60 mL/min/1.7 3 sq. m. The reference range was not used to interpret th is result as normal/abnormal . [facility] Atlanta[facility] [id number] 16:32:35 Test Item Value Reference Range Interpretation Comments Uric Acid (test 5.3 mg/dL 3.4-7.0 Testing Perf ormed at [facility] code = 3084-1) Lab Ambulator y Care [facility], [address], [place] [address] [facility] Atlanta[facility] [id number] 16:32:35 Test Item Value Reference Range Interpretation Comments Uric Acid (test 5.3 mg/dL 3.4-7.0 Testing Perf ormed at [facility] code = 3084-1) Lab Ambulator y Care Bl, [address], [place] [address] [facility] Atlanta[facility] [id number] 16:32:34 Test Item Value Reference Range Interpretation Comments Total Protein (test 7.0 g/dL 6.4-8.3 Testing Performed at B code = 2885-2) Lab [facility] Care Bldg, [address], [address], [place] [address] [facility] [id number] 16:32:34 Test Item Value Reference Range Interpretation Comments Total Protein (test 7.0 g/dL 6.4-8.3 Testing Performed at [facility] code = 2885-2) Lab Amb[facility] Care Bldg, [address], [address], [place] [address] [facility] AtlantaMagnesium [id number] 16:32:33 Test Item Value Reference Range Interpretation Comments Magnesium (test code = 1.9 mg/dL 1.6-2.6 [place] [address]-4) [facility] Lab Ambulat ory Care Bldg, [address], [place] [address] [facility] Atlanta[facility] [id number] 16:32:33 Test Item Value Reference Range Interpretation Comments Magnesium (test code = 1.9 mg/dL 1.6-2.6 [place] [address]-0) [facility] Lab Ambulat ory Care Bldg, [address], [place] [address] [facility] Atlanta[facility] [id number] 16:32:32 Test Item Value Reference Range Interpretation Comments Calcium Lvl (test 9.3 mg/dL 8.4-10.2 Testing Pe rformed at code = 34299-9) [facility] Lab Ambu latory Care Bldg, [address], [place] [address] [facility] [id number] 16:32:32 Test Item Value Reference Range Interpretation Comments Calcium Lvl (test 9.3 mg/dL 8.4-10.2 Testing Pe rformed at code = 52440-6) [facility] Lab Ambu latory Care Bldg, [address], [address], [place] [address] [facility] AtlantaAlkaline [id number] 16:32:31 Test Item Value Reference Range Interpretation Comments Alk Phos (test code = 91 U/L 40-129 Testin g Performed at [facility]) Lab Acidity Tester Bldg, [address], [place] [address] [facility] AtlantaAlkaline [id number] 16:32:31 Test Item Value Reference Range Interpretation Comments Alk Phos (test code = 91 U/L 40-129 Testin g Performed at [facility]) Lab Acidity Tester [facility], [address], [place] [address] [facility] AtlantaAlbumin [id number] 16:32:30 Test Item Value Reference Range Interpretation Comments Albumin Lvl (test code 3.8 See_Comment Testi ng Performed at B = 1751-7) Lab Acidity Tester [facility], [address], [address], [place] [address] [Automated mess age] The system which ge nerated this result tra nsmitted reference range : 3.5 - 5.2 gm/dL. The refe rence range was not used to interpret this result as normal/abnormal . [facility] AtlantaAlbumin [id number] 16:32:30 Test Item Value Reference Range Interpretation Comments Albumin Lvl (test code 3.8 See_Comment Testi ng Performed at B = 1751-7) Lab Acidity Tester [facility], [address], [place] [address] [Automated mess age] The system which ge nerated this result tra nsmitted reference range : 3.5 - 5.2 gm/dL. The refe rence range was not used to interpret this result as normal/abnormal . [facility] AtlantaAspartate Aminotransferase 2022-06-07 16:32:29 Test Item Value Reference Range Interpretation Comments AST (test code = 14 U/L <=40 Testing Per formed at [facility] 1920-8) Lab Acidity Tester Bldg, [facility], [place] [address] [facility] AtlantaAspartate Aminotransferase 2022-06-07 16:32:29 Test Item Value Reference Range Interpretation Comments AST (test code = 14 U/L See_Comment Testing Per formed at [facility] 1920-8) Lab [facility], [facility], [place] [address] [Automated mess age] The system which ge nerated this result transmit lakhwinder reference range : <=40. The reference range was not used to interpr et this result as paras l/abnormal. [facility] AtlantaALT2022-12-09 16:32:28 Test Item Value Reference Range Interpretation Comments ALT (test code = 6 U/L <=41 Testing Per formed at [facility] 1742-6) [facility], [facility], [place] [address] [facility] AtlantaALT2022-12-09 16:32:28 Test Item Value Reference Range Interpretation Comments ALT (test code = 6 U/L See_Comment Testing Per formed at [facility] 1742-6) [facility], [address] [place], [place] [address], [place] [address] [Automated mess age] The system which ge nerated this result transmit lakhwinder reference range : <=41. The reference range was not used to interpr et this result as paras l/abnormal. [facility] AtlantaElectrolyte [id number] 16:32:27 Test Item Value Reference Range Interpretation Comments Sodium Lvl (test code = 138 See_Comment Test ing Performed at [facility] 2951-2) Lab Ac[facility] Tester Bldg, [facility], [place] [address] [Automated mess age] The system which ge nerated this result tra nsmitted reference range : 136 - 145 mEq/L. The reference range was not u sed to interpret this result as normal/abnormal . Potassium Lvl (test 3.8 See_Comment Testing Performed at [facility] code = 2823-3) Lab Ambulator y Care [facility], [address], [place] [address] [Automated mess age] The system which ge nerated this result tra nsmitted reference range : 3.5 - 5.1 mEq/L. The reference range was not u sed to interpret this result as normal/abnormal . Chloride (test code = 103 See_Comment Testin g Performed at [facility] 2074-0) [facility] Bld[facility], [address], [place] [address] [Automated mess age] The system which ge nerated this result tra nsmitted reference range : 98 - 107 mEq/L. The refe rence range was not u sed to interpret this result as normal/abnormal . CO2 (test code = 25 See_Comment Testing Per formed at [facility] 2028-02) [facility] Bld[facility], [address], [place] [address] [Automated mess age] The system which ge nerated this result tra nsmitted reference range : 22 - 29 mEq/L. The refe rence range was not u sed to interpret this result as normal/abnormal . Anion Gap (test code = 10 See_Comment Testi ng Performed at [facility] 19848-6) [facility] Bld[facility], [address], [place] [address] [Automated mess age] The system which ge nerated this result tra nsmitted reference range : 4 - 14 mEq/L. The refe rence range was not u sed to interpret this result as normal/abnormal . [facility] ElbertElectrolyte [id number] 16:32:27 Test Item Value Reference Range Interpretation Comments Sodium Lvl (test code = 138 See_Comment Test ing Performed at [facility] 2951-2) Lab Acidity Tester [facility], [address], [place] [address] [Automated mess age] The system which ge nerated this result tra nsmitted reference range : 136 - 145 mEq/L. The reference range was not u sed to interpret this result as normal/abnormal . Potassium Lvl (test 3.8 See_Comment Testing Performed at [facility] code = 2823-3) Lab Ambulator y Care [facility], [address], [place] [address] [Automated mess age] The system which ge nerated this result tra nsmitted reference range : 3.5 - 5.1 mEq/L. The reference range was not u sed to interpret this result as normal/abnormal . Chloride (test code = 103 See_Comment Testin g Performed at [facility] 0) Lab Acidity Tester [facility], [address], [place] [address] [Automated mess age] The system which ge nerated this result tra nsmitted reference range : 98 - 107 mEq/L. The refe rence range was not u sed to interpret this result as normal/abnormal . CO2 (test code = 25 See_Comment Testing Per formed at [facility] 2028-02) Lab [facility] Tester Bldg, [address], [place] [address] [Automated mess age] The system which ge nerated this result tra nsmitted reference range : 22 - 29 mEq/L. The refe rence range was not u sed to interpret this result as normal/abnormal . Anion Gap (test code = 10 See_Comment Testi ng Performed at [facility] 876[address]-2) Lab Acidity Tester [facility], [address], [address], [place] [address] [Automated mess age] The system which ge nerated this result tra nsmitted reference range : 4 - 14 mEq/L. The refe rence range was not u sed to interpret this result as normal/abnormal . [facility]bert.Serum [id number] 16:32:26 Test Item Value Reference Range Interpretation Comments Creatinine (test code = 0.66 mg/dL 0.67-1.17 L Test ing Performed 2160-0) at [facility] Lab Acidity Tester [facility], [address], [place], [place] [address] Lab Interpretation (test Abnormal code = 99456-0) [facility].Serum [id number] 16:32:26 Test Item Value Reference Range Interpretation Comments Creatinine (test code = 0.66 mg/dL 0.67-1.17 L Test ing Performed 2160-0) at [facility] Lab Acidity Tester [facility], [address], [place], [place] [address] Lab Interpretation (test Abnormal code = 93367-3) [facility] AtlantaBUN2022-12-09 16:32:25 Test Item Value Reference Range Interpretation Comments BUN (test code = 3094-0) 5 mg/dL 6-23 L Betty ting Performed at [facility] Ambul[facility]y Care Bldg, [address], [place] [address] Lab Interpretation (test Abnormal code = 72674-8) [facility] AtlantaBUN2022-12-09 16:32:25 Test Item Value Reference Range Interpretation Comments BUN (test code = 3094-0) 5 mg/dL 6-23 L Betty ting Performed at [facility], [address], [place] [address] Lab Interpretation (test Abnormal code = 74365-2) [facility] AtlantaGlucose [id number] 16:32:24 Test Item Value Reference Range Interpretation Comments Glucose Level (test 96 mg/dL 70-99 Effectiv e 01/24/16, the code = 2345-7) glucose refer ence intervals have been updated based o n [place] octaviano delines (Standards of M edical Care in Diabete s 2016. Diabetes Care 2 016; 39: S13-S22).Fastin g blood glucose:Normal: 70-99 mg/dLImpaired f asting glucose (increa sed risk for diabetes or pre-diabetes): 100-125 mg/dLDiabetes m ellitus: >/=126 mg/dL Ra ndom blood glucose:N ormal: 70-199 mg/dLNot e: Random glucose >100 mg /dL is associated with increased risk for diabetes Testin g Performed at B Lab Acidity Tester [facility], [address], [place] [address] [facility] AtlantaGlucose [id number] 16:32:24 Test Item Value Reference Range Interpretation Comments Glucose Level (test 96 mg/dL 70-99 Effectiv e 01/24/16, the code = 2345-7) glucose refer ence intervals have been updated based o n [place] octaviano delines (Standards of M edical Care in Diabete s 2016. Diabetes Care 2 016; 39: S13-S22).Fastin g blood glucose:Normal: 70-99 mg/dLImpaired f asting glucose (increa sed risk for diabetes or pre-diabetes): 100-125 mg/dLDiabetes m ellitus: >/=126 mg/dL Ra ndom blood glucose:N ormal: 70-199 mg/dLNot e: Random glucose >100 mg /dL is associated with increased risk for diabetes Testin g Performed at [facility], [address], [place] [address] [facility] IgdrrxIpelfnifpgqx9638-44-60 16:09:54 Test Item Value Reference Range Interpretation Comments Neutrophil % (test code 53.5 % 42.0-66.0 As p art of = 770-8) Differential performed at [facility], [address], [place] [address] Lymphocyte % (test code 38.2 % 24.0-44.0 = 736-9) Monocyte % (test code = 7.0 % 2.0-7.0 5905-5) Eosinophil % (test code 0.7 % 1.0-4.0 L = 713-8) Basophil % (test code = 0.3 % 0.0-1.0 706-2) IGRE % (test code = 0.3 % 0.0-0.4 IGRE % c ount includes 48842-8) Metamyelocytes, Myelocytes, and Promyelocytes. As part of Differe ntial performed at [facility], [address], [place] [address] Neutrophil Abs (test 3.56 K/uL 1.70-7.30 code = 751-8) Lymphocyte Abs (test 2.55 K/uL 1.00-4.80 code = 731-0) Monocyte Abs (test code 0.47 K/uL 0.08-0.70 = 742-7) Eosinophil Abs (test 0.05 K/uL 0.04-0.40 code = 711-2) Basophil Abs (test code 0.02 K/uL 0.00-0.10 = 704-7) IG Abs (test code = 0.02 K/uL 0.00-0.04 34475-1) Lab Interpretation Abnormal (test code = 10857-2) [facility] Atlanta[facility]ial2022-12-09 16:09:54 Test Item Value Reference Range Interpretation Comments Neutrophil % (test code 53.5 % 42.0-66.0 As p art of = 770-8) Differential performed at [facility] Acidity Tester [facility], [address], [place] [address] Lymphocyte % (test code 38.2 % 24.0-44.0 = 736-9) Monocyte % (test code = 7.0 % 2.0-7.0 5905-5) Eosinophil % (test code 0.7 % 1.0-4.0 L = 713-8) Basophil % (test code = 0.3 % 0.0-1.0 706-2) IGRE % (test code = 0.3 % 0.0-0.4 IGRE % c ount includes 68781-1) Metamyelocytes, Myelocytes, and Promyelocytes. As part of Differe ntial performed at [facility], [address], [address], [place] [address] Neutrophil Abs (test 3.56 K/uL 1.70-7.30 code = 751-8) Lymphocyte Abs (test 2.55 K/uL 1.00-4.80 code = 731-0) Monocyte Abs (test code 0.47 K/uL 0.08-0.70 = 742-7) Eosinophil Abs (test 0.05 K/uL 0.04-0.40 code = 711-2) Basophil Abs (test code 0.02 K/uL 0.00-0.10 = 704-7) IG Abs (test code = 0.02 K/uL 0.00-0.04 82945-8) Lab Interpretation Abnormal (test code = 54720-9) [facility].AZV2568-81-17 16:09:39 Test Item Value Reference Range Interpretation Comments WBC (test code = 6.7 K/uL 4.0-11.0 6690-2) RBC (test code = 789-8) 3.87 See_Comment L [Au tomated message] The system Blurb generated this result transmitted ref erence range: 4.50 - 6 .00 M/uL. The refer ence range was not u sed to interpret this result as normal/abnor mal. Hgb (test code = 718-7) 11.3 See_Comment L As p art of CBC or as an individual orderable testi ng performed at [facility], [address], [place] [address] [Automate d message] The sy stem which generated this result transmit lakhwinder reference range : 14.0 - 18.0 gm/dL. T he reference range was not used to int erpret this result as normal/abnormal . Hct (test code = 35.1 % 40.0-54.0 L As part of CBC or as 4544-3) an individual orderable testi ng performed at [facility], [address], [place] [address] MCV (test code = 787-2) 91 fL 82-98 MCH (test code = 785-6) 29.2 pg 27.0-31.0 MCHC (test code = 32.2 See_Comment [Automate d message] 786-4) The system Blurb generated this result transmitted ref erence range: 31.0 - 3 6.0 gm/dL. The refe rence range was not u sed to interpret this result as normal/abnor mal. RDW-SD (test code = 52.4 fL 35.1-46.3 H 08008-2) RDW-CV (test code = 15.8 % 12.0-15.5 H 788-0) Platelet count (test 304 K/uL 140-440 As part of CBC or as code = 777-3) an individual orderable testi ng performed at [facility], [address], [place] [address] MPV (test code = 9.7 fL 4.0-10.4 62733-7) INRBC (test code = 0.0 % <=0.0 The INRBC (instrument 93255-3) NRBC) value ref lects the enumeration of nucleated red b lood cells contained in a 200uL sampleof whole blood analyzed by the instrument. Thi s value maydiffer from the NRBC value repo rted in a manual differential,wh ich is based on a 100 cell differential. A s part of CBC testing performed at [facility] Ac[facility] Tester [address], [place] [address] Lab Interpretation Abnormal (test code = 74017-2) [facility] Elbert.TEO4395-42-55 16:09:39 Test Item Value Reference Range Interpretation Comments WBC (test code = 6.7 K/uL 4.0-11.0 6690-2) RBC (test code = 789-8) 3.87 See_Comment L [Au tomated message] The system Blurb generated this result transmitted ref erence range: 4.50 - 6 .00 M/uL. The refer ence range was not u sed to interpret this result as normal/abnor mal. Hgb (test code = 718-7) 11.3 See_Comment L As p art of CBC or as an individual orderable testi ng performed at [facility] Ac[facility] Tester Bldg, [address], [place] [address] [Automate d message] The sy stem which generated this result transmit lakhwinder reference range : 14.0 - 18.0 gm/dL. T he reference range was not used to int erpret this result as normal/abnormal . Hct (test code = 35.1 % 40.0-54.0 L As part of CBC or as 4544-3) an individual orderable testi ng performed at [facility] T[facility] Bldg, [address], [place] [address] MCV (test code = 787-2) 91 fL 82-98 MCH (test code = 785-6) 29.2 pg 27.0-31.0 MCHC (test code = 32.2 See_Comment [Automate d message] 786-4) The system Blurb generated this result transmitted ref erence range: 31.0 - 3 6.0 gm/dL. The refe rence range was not u sed to interpret this result as normal/abnor mal. RDW-SD (test code = 52.4 fL 35.1-46.3 H 38886-0) RDW-CV (test code = 15.8 % 12.0-15.5 H 788-0) Platelet count (test 304 K/uL 140-440 As part of CBC or as code = 777-3) an individual orderable testi ng performed at [facility] Acidity Tester [facility], [address], [place] [address] MPV (test code = 9.7 fL 4.0-10.4 45965-6) INRBC (test code = 0.0 % See_Comment The INRBC (instrument 82952-5) NRBC) value ref lects the enumeration of nucleated red b lood cells contained in a 200uL sampleof whole blood analyzed by the instrument. Thi s value maydiffer from the NRBC value repo rted in a manual differential,wh ich is based on a 100 cell differential. A s part of CBC testing performed at [facility] Acidity Tester [address], [place], [place] [address] [Automated mess age] The system Blurb generated this result transmitted ref erence range: <=0.0. T he reference range was not used to int erpret this result as normal/abnormal . Lab Interpretation Abnormal (test code = 14846-8) [facility] Blood [id number] 23:29:29 Test Item Value Reference Range Interpretation Comments Final Report (test No Fungi isolated. code = 8488) Path Review - Culture yield may be Fungus (test code = affected by sample 8479) quality, prior treatment, and transportation conditions.The results have been reviewed and electronically signed by Pathologist:SRUTHI ZABALA MD #[id number] [facility] Blood [id number] 23:29:29 Test Item Value Reference Range Interpretation Comments Final Report (test No Fungi isolated. code = 8488) Path Review - Culture yield may be Fungus (test code = affected by sample 8479) quality, prior treatment, and transportation conditions.The results have been reviewed and electronically signed by Pathologist:SRUTHI ZABALA MD #[id number] [facility] Atlanta[facility]ungma Blood [id number] 23:29:29 Test Item Value Reference Range Interpretation Comments Final Report (test No Fungi isolated. code = 8488) Path Review - Culture yield may be Fungus (test code = affected by sample 8479) quality, prior treatment, and transportation conditions.The results have been reviewed and electronically signed by Pathologist:SRUTHI ZABALA MD #[id number] [facility] Blood Qphdhup4009-66-00 23:29:29 Test Item Value Reference Range Interpretation Comments Final Report (test No Fungi isolated. code = 8488) Path Review - Culture yield may be Fungus (test code = affected by sample 8479) quality, prior treatment, and transportation conditions.The results have been reviewed and electronically signed by Pathologist:SRUTHI ZABALA MD #[id number] [facility] Blood [id number] 23:29:29 Test Item Value Reference Range Interpretation Comments Final Report (test No Fungi isolated. code = 8488) Path Review - Culture yield may be Fungus (test code = affected by sample 8479) quality, prior treatment, and transportation conditions.The results have been reviewed and electronically signed by Pathologist:SRUTHI ZABALA MD #[id number] [facility]2022-04-30 01:20:36 Test Item Value Reference Range Interpretation Comments Final Report (test No growth code = 8488) Path Review - Culture yield may be Bottle/Isolator affected by sample (test code = 8499) quality, prior treatment, and transportation conditions....The results have been reviewed and electronically signed by Pathologist:Fredy Mercado MD, PhD #[id number] [facility] Cikrysw0391-00-43 01:20:36 Test Item Value Reference Range Interpretation Comments Final Report (test No growth code = 8488) Path Review - Culture yield may be Bottle/Isolator affected by sample (test code = 8499) quality, prior treatment, and transportation conditions....The results have been reviewed and electronically signed by Pathologist:Fredy Mercado MD, PhD #[id number] [facility]2022-04-30 01:20:36 Test Item Value Reference Range Interpretation Comments Final Report (test No growth code = 8488) Path Review - Culture yield may be Bottle/Isolator affected by sample (test code = 8499) quality, prior treatment, and transportation conditions....The results have been reviewed and electronically signed by Pathologist:Fredy Mercado MD, PhD #[id number] [facility] Qqphkuo8111-53-75 01:20:36 Test Item Value Reference Range Interpretation Comments Final Report (test No growth code = 8488) Path Review - Culture yield may be Bottle/Isolator affected by sample (test code = 8499) quality, prior treatment, and transportation conditions....The results have been reviewed and electronically signed by Pathologist:Fredy Mercado MD, PhD #[id number] [facility] Rtuubyo5370-21-96 01:20:36 Test Item Value Reference Range Interpretation Comments Final Report (test No growth code = 8488) Path Review - Culture yield may be Bottle/Isolator affected by sample (test code = 8499) quality, prior treatment, and transportation conditions....The results have been reviewed and electronically signed by Pathologist:Fredy Mercado MD, PhD #[id number] [facility]2022-[facility]-27 17:07:36 Test Item Value Reference Range Interpretation Comments Total Cells (test code 100 = 90484-9) Neutrophil % (test code 63.0 % 42.0-66.0 The Neutrophil count = 66558-6) includes Bands. Lymphocyte % (test code 20.0 % 24.0-44.0 L = 737-7) Monocyte % (test code = 9.0 % 2.0-7.0 H 744-3) Eosinophil % (test code 2.0 % 1.0-4.0 = 714-6) Metamyelocyte % (test 6.0 % See_Comment H The Me tamyelocyte code = 740-1) count includes Myelocytes. [Automated mess age] The system [facility] [employer] generated this result transmitted ref erence range: <=0.0. T he reference range was not used to int erpret this result as normal/abnormal . NRBC (test code = 1.0 See_Comment H [Automate d message] 64782-4) The system [employer] generated this result transmitted ref erence range: [...] PLT Morph (test code = Normal Normal 78662-5) Anisocytosis (test code Present Not Present A = 702-1) Poik (test code = Present Not Present A 779-9) Polychromasia (test Present Not Present A code = 10948-3) Ovalocyte (test code = Present Not Present A 774-0) Tear Drop (test code = Present Not Present A 7791-7) Lab Interpretation Abnormal (test code = 29880-4) [facility] SplctfQgfzicvvymtu8954-66-93 17:07:36 Test Item Value Reference Range Interpretation Comments Total Cells (test code 100 = 22171-2) Neutrophil % (test code 63.0 % 42.0-66.0 The Neutrophil count = 78420-7) includes Bands. Lymphocyte % (test code 20.0 % 24.0-44.0 L = 737-7) Monocyte % (test code = 9.0 % 2.0-7.0 H 744-3) Eosinophil % (test code 2.0 % 1.0-4.0 = 714-6) Metamyelocyte % (test 6.0 % See_Comment H The Me tamyelocyte code = 740-1) count includes Myelocytes. [Automated mess age] The system [employer] generated this result transmitted ref erence range: <=0.0. T he reference range was not used to int erpret this result as normal/abnormal . NRBC (test code = 1.0 See_Comment H [Automate d message] 16118-0) The system [employer] generated this result transmitted ref erence range: [...] PLT Morph (test code = Normal Normal 79728-6) Anisocytosis (test code Present Not Present A = 702-1) Poik (test code = Present Not Present A 779-9) Polychromasia (test Present Not Present A code = 04566-3) Ovalocyte (test code = Present Not Present A 774-0) Tear Drop (test code = Present Not Present A 7791-7) Lab Interpretation Abnormal (test code = 06236-2) [facility] IgnypyIyiwlirocaqw7421-20-84 17:07:36 Test Item Value Reference Range Interpretation Comments Total Cells (test code 100 = 24334-5) Neutrophil % (test code 63.0 % 42.0-66.0 The Neutrophil count = 51188-2) includes Bands. Lymphocyte % (test code 20.0 % 24.0-44.0 L = 737-7) Monocyte % (test code = 9.0 % 2.0-7.0 H 744-3) Eosinophil % (test code 2.0 % 1.0-4.0 = 714-6) Metamyelocyte % (test 6.0 % See_Comment H The Me tamyelocyte code = 740-1) count includes Myelocytes. [Automated mess age] The system [employer] generated this result transmitted ref erence range: <=0.0. T he reference range was not used to int erpret this result as normal/abnormal . NRBC (test code = 1.0 See_Comment H [Automate d message] 11390-8) The system [employer] generated this result transmitted ref erence range: [...] PLT Morph (test code = Normal Normal 77964-0) Anisocytosis (test code Present Not Present A = 702-1) Poik (test code = Present Not Present A 779-9) Polychromasia (test Present Not Present A code = 41485-3) Ovalocyte (test code = Present Not Present A 774-0) Tear Drop (test code = Present Not Present A 7791-7) Lab Interpretation Abnormal (test code = 62825-4) [facility] Elbert.AQD0122-07-23 17:07:32 Test Item Value Reference Range Interpretation Comments WBC (test code = 11.5 K/uL 4.0-11.0 H 6690-2) RBC (test code = 789-8) 4.25 See_Comment L [Au tomated message] The system [employer] generated this result transmitted ref erence range: 4.50 - 6 .00 M/uL. The refer ence range was not u sed to interpret this result as normal/abnor mal. Hgb (test code = 718-7) 12.1 See_Comment L [Au tomated message] The system [employer] generated this result transmitted ref erence range: [...] See_Comment [Automate d message] 786-4) The system [employer] generated this result transmitted ref erence range: 31.0 - 3 6.0 gm/dL. The refe rence range was not u sed to interpret this result as normal/abnor mal. RDW-SD (test code = 57.5 fL 35.1-46.3 H 59235-4) RDW-CV (test code = 17.4 % 12.0-15.5 H 788-0) Platelet count (test 313 K/uL 140-440 code = 777-3) MPV (test code = 8.8 fL 4.0-10.4 16315-8) INRBC (test code = 0.2 % See_Comment H The INRBC (instrument 84235-9) NRBC) value ref lects the enumeration of nucleated red b lood cells contained in a 200uL sampleof whole blood analyzed by the instrument. Thi s value maydiffer from the NRBC value reported in a m anual differential,wh ich is based on a 100 cell differential. [Automated mess age] The system [employer] generated this result transmitted ref erence range: <=0.0. T he reference range was not used to int erpret this result as normal/abnormal . Lab Interpretation Abnormal (test code = 98341-0) [facility] Elbert.MEO9706-73-50 17:07:32 Test Item Value Reference Range Interpretation Comments WBC (test code = 11.5 K/uL 4.0-11.0 H 6690-2) RBC (test code = 789-8) 4.25 See_Comment L [Au tomated message] The system [employer] generated this result transmitted ref erence range: 4.50 - 6 .00 M/uL. The refer ence range was not u sed to interpret this result as normal/abnor mal. Hgb (test code = 718-7) 12.1 See_Comment L [Au tomated message] The system [employer] generated this result transmitted ref erence range: [...] See_Comment [Automate d message] 786-4) The system [employer] generated this result transmitted ref erence range: 31.0 - 3 6.0 gm/dL. The refe rence range was not u sed to interpret this result as normal/abnor mal. RDW-SD (test code = 57.5 fL 35.1-46.3 H 54346-6) RDW-CV (test code = 17.4 % 12.0-15.5 H 788-0) Platelet count (test 313 K/uL 140-440 code = 777-3) MPV (test code = 8.8 fL 4.0-10.4 42364-3) INRBC (test code = 0.2 % See_Comment H The INRBC (instrument 27475-3) NRBC) value ref lects the enumeration of nucleated red b lood cells contained in a 200uL sampleof whole blood analyzed by the instrument. Thi s value maydiffer from the NRBC value reported in a m anual differential,wh ich is based on a 100 cell differential. [Automated mess age] The system [employer] generated this result transmitted ref erence range: <=0.0. T he reference range was not used to int erpret this result as normal/abnormal . Lab Interpretation Abnormal (test code = 86470-1) [facility] Elbert.UDN0297-30-85 17:07:32 Test Item Value Reference Range Interpretation Comments WBC (test code = 11.5 K/uL 4.0-11.0 H 6690-2) RBC (test code = 789-8) 4.25 See_Comment L [Au tomated message] The system [employer] generated this result transmitted ref erence range: 4.50 - 6 .00 M/uL. The refer ence range was not u sed to interpret this result as normal/abnor mal. Hgb (test code = 718-7) 12.1 See_Comment L [Au tomated message] The system [employer] generated this result transmitted ref erence range: [...] See_Comment [Automate d message] 786-4) The system [facility] generated this result transmitted ref erence range: 31.0 - 3 6.0 gm/dL. The refe rence range was not u sed to interpret this result as normal/abnor mal. RDW-SD (test code = 57.5 fL 35.1-46.3 H 21547-2) RDW-CV (test code = 17.4 % 12.0-15.5 H 788-0) Platelet count (test 313 K/uL 140-440 code = 777-3) MPV (test code = 8.8 fL 4.0-10.4 20734-2) INRBC (test code = 0.2 % See_Comment H The INRBC (instrument 26516-0) NRBC) value ref lects the enumeration of nucleated red b lood cells contained in a 200uL sampleof whole blood analyzed by the instrument. Thi s value maydiffer from the NRBC value reported in a m anual differential,wh ich is based on a 100 cell differential. [Automated mess age] The system [facility] [employer] generated this result transmitted ref erence range: <=0.0. T he reference range was not used to int erpret this result as normal/abnormal . Lab Interpretation Abnormal (test code = 50737-2) [facility] ElbertElectrolyte Blaqf4931-44-15 11:49:22 Test Item Value Reference Range Interpretation Comments Sodium Lvl (test code = 141 See_Comment [Au tomated message] The 2951-2) system which ge nerated this result tra [...] to interpret this result as normal/abnormal . [facility] Tdvkt7651-00-30 11:49:22 Test Item Value Reference Range Interpretation [...] to interpret this result as normal/abnormal . [facility] Vnrpv5641-15-95 11:49:22 Test Item Value Reference Range Interpretation [...] to interpret this result as normal/abnormal . [facility] AtlantaFractionated Xiywrhcya5181-18-87 11:49:21 Test Item Value Reference Range Interpretation [...] interpret th is result as normal/abnormal . [facility] Atlanta[facility]raction[facility] Scezftrfv4914-72-78 11:49:21 Test Item Value Reference Range Interpretation [...] h IgG concentrations above 28 g/L. [Automated [employer]] The system which ge nerated this result transmit lakhwinder reference range: <=1.2 mg /dL. The reference range was not used to interpret th is result as normal/abnormal . [facility] Atlanta[facility]raction[facility] Xeycwksbn8895-82-17 11:49:21 Test Item Value Reference Range Interpretation [...] h IgG concentrations above 28 g/L. [Automated [employer] age] The system which ge nerated this result transmit lakhwinder reference range: <=1.2 mg /dL. The reference range was not used to interpret th is result as normal/abnormal . [facility] Atlanta[facility]omer[facility] Fil[facility] Rate 2021-10-24 11:49:20 Test Item Value Reference Range Interpretation Comments eGFR-AA (test code 107 See_Comment Normal eG FR: >= 60 = 82435-2) mL/min/1.73 m2N ote: The eGFR is calculated [...] to interpret is result as normal/abnormal . eGFR-JCARLOS (test code 93 See_Comment Normal e GFR: >= 60 = 21417-6) mL/min/1.73 m2N ote: The eGFR is calculated [...] to interpret is result as normal/abnormal . [facility] ElbertGlomerular Filtration Rate 2021-10-24 11:49:20 Test Item Value Reference Range Interpretation Comments eGFR-AA (test code 107 See_Comment Normal eG FR: >= 60 = 91310-6) mL/min/1.73 m2N ote: The eGFR is calculated [...] bas ed on estimated GFR. Stage Description GF R mL/min/1.73 m21 Normal or h igh GFR [...] See_Comment Normal e GFR: >= 60 = 60035-8) mL/min/1.73 m2N ote: The eGFR is calculated [...] interpret th is result as normal/abnormal . [facility] Rate 2021-10-24 11:49:20 Test Item Value Reference Range Interpretation Comments eGFR-AA (test code 107 See_Comment Normal eG FR: >= 60 = 57010-5) mL/min/1.73 m2N ote: The eGFR is calculated [...] See_Comment Normal e GFR: >= 60 = 71987-7) mL/min/1.73 m2N ote: The eGFR is calculated [...] interpret th is result as normal/abnormal . [facility] Fnftuhs3684-42-99 11:49:19 Test Item Value Reference Range Interpretation Comments Total Protein (test code = 2885-2) 6.3 g/dL 6.4-8.3 L Lab Interpretation (test code = Abnormal 57673-8) [facility] Pqwqwwg8202-27-03 11:49:19 Test Item Value Reference Range Interpretation Comments Total Protein (test code = 2885-2) 6.3 g/dL 6.4-8.3 L Lab Interpretation (test code = Abnormal 21280-4) [facility] Xwrsxwj8724-41-70 11:49:19 Test Item Value Reference Range Interpretation Comments Total Protein (test code = 2885-2) 6.3 g/dL 6.4-8.3 L Lab Interpretation (test code = Abnormal 09582-6) [facility] Atlanta[facility] Oazvj2214-13-64 11:49:18 Test Item Value Reference Range Interpretation Comments Magnesium (test code = 86579-2) 2.1 mg/dL 1.6-2.6 [facility] Atlanta[facility] Vfbud0747-59-72 11:49:18 Test Item Value Reference Range Interpretation Comments Magnesium (test code = 18429-4) 2.1 mg/dL 1.6-2.6 [facility] Atlanta[facility] Whuqz4722-48-20 11:49:18 Test Item Value Reference Range Interpretation Comments Magnesium (test code = 08586-3) 2.1 mg/dL 1.6-2.6 [facility] AtlantaAlkaline Phfynnnhqla8632-71-86 11:49:17 Test Item Value Reference Range Interpretation Comments Alk Phos (test code = 6768-6) 59 U/L 40-129 [facility] Atlanta[facility]aline Fpmtferzwrg2016-86-55 11:49:17 Test Item Value Reference Range Interpretation Comments Alk Phos (test code = 6768-6) 59 U/L 40-129 [facility] Atlanta[facility] Kdnfdsujduz6925-11-27 11:49:17 Test Item Value Reference Range Interpretation Comments Alk Phos (test code = 6768-6) 59 U/L 40-129 [facility]16 Test Item Value Reference Range Interpretation Comments ALT (test code = 14 U/L See_Comment [Automated message] The 1741-11) system which ge nerated this result transmit lakhwinder reference range : <=41. The reference range was not used to interpr et this result as paras l/abnormal. [facility] 11:49:16 Test Item Value Reference Range Interpretation Comments ALT (test code = 14 U/L See_Comment [Automated message] The 1741-11) system which ge nerated this result transmit lakhwinder reference range : <=41. The reference range was not used to interpr et this result as paras l/abnormal. [facility] 11:49:16 Test Item Value Reference Range Interpretation Comments ALT (test code = 14 U/L See_Comment [Automated message] The 1741-11) system which ge nerated this result transmit lakhwinder reference range : <=41. The reference range was not used to interpr et this result as paras l/abnormal. [facility].Serum Eneqqgzhkz5044-09-49 11:49:15 Test Item Value Reference Range Interpretation Comments Creatinine (test code = 2160-0) 0.81 mg/dL 0.67-1.17 [facility].Serum Nzpbaixvyf3859-44-83 11:49:15 Test Item Value Reference Range Interpretation Comments Creatinine (test code = 2160-0) 0.81 mg/dL 0.67-1.17 [facility].Serum Iysdfobihy3339-85-50 11:49:15 Test Item Value Reference Range Interpretation Comments Creatinine (test code = 2160-0) 0.81 mg/dL 0.67-1.17 [facility] AtlantaBUN2022-04-27 11:49:14 Test Item Value Reference Range Interpretation Comments BUN (test code = 3094-0) 15 mg/dL 12-20 [facility]2022-[facility]-27 11:49:14 Test Item Value Reference Range Interpretation Comments BUN (test code = 3094-0) 15 mg/dL 12-20 [facility]2022-04-27 11:49:14 Test Item Value Reference Range Interpretation Comments BUN (test code = 3094-0) 15 mg/dL 6-23 [facility] AtlantaPhosphorus Bqwgk1919-26-90 11:49:13 Test Item Value Reference Range Interpretation Comments Phosphorus (test code = 2777-1) 3.4 mg/dL 2.5-4.5 [facility] AtlantaPhosph[facility] Pouyt6411-76-74 11:49:13 Test Item Value Reference Range Interpretation Comments Phosphorus (test code = 2777-1) 3.4 mg/dL 2.5-4.5 [facility] AtlantaPhosph[facility] Dixec7747-56-84 11:49:13 Test Item Value Reference Range Interpretation Comments Phosphorus (test code = 2777-1) 3.4 mg/dL 2.5-4.5 [facility] Atlanta[facility] Dkrlf3105-05-16 11:49:13 Test Item Value Reference Range Interpretation Comments Phosphorus (test code = 2777-1) 3.4 mg/dL 2.5-4.5 [facility] AtlantaPh[facility] Wpxaa1617-34-39 11:49:13 Test Item Value Reference Range Interpretation Comments Phosphorus (test code = 2777-1) 3.4 mg/dL 2.5-4.5 [facility] AtlantaCalcium Fgaku4156-28-06 11:49:12 Test Item Value Reference Range Interpretation Comments Calcium Lvl (test code = 30949-2) 9.1 mg/dL 8.4-10.2 [facility] Atlanta[facility] Kirrw3761-72-84 11:49:12 Test Item Value Reference Range Interpretation Comments Calcium Lvl (test code = 08927-2) 9.1 mg/dL 8.4-10.2 [facility] Atlanta[facility] Cpgnx5630-24-37 11:49:12 Test Item Value Reference Range Interpretation Comments Calcium Lvl (test code = 30709-8) 9.1 mg/dL 8.4-10.2 [facility] AtlantaAlbumin Sdgfn1183-89-92 11:49:11 Test Item Value Reference Range Interpretation Comments Albumin Lvl (test code 3.6 See_Comment [Aut omated message] The = 4763) system which ge nerated this result tra nsmitted reference range : 3.5 - 5.2 gm/dL. The refe rence range was not used to interpret this result as normal/abnormal . [facility] AtlantaAlbumin Rnvdw6789-86-95 11:49:11 Test Item Value Reference Range Interpretation Comments Albumin Lvl (test code 3.6 See_Comment [Aut omated message] The = 9719) system which ge nerated this result tra nsmitted reference range : 3.5 - 5.2 gm/dL. The refe rence range was not used to interpret this result as normal/abnormal . [facility] Atlanta[facility] Xzlzr5312-61-77 11:49:11 Test Item Value Reference Range Interpretation Comments Albumin Lvl (test code 3.6 See_Comment [Aut omated message] The = 0982) system which ge nerated this result tra nsmitted reference range : 3.5 - 5.2 gm/dL. The refe rence range was not used to interpret this result as normal/abnormal . [facility] Atlanta[facility]artate Aminotransferase 2021-10-24 11:49:10 Test Item Value Reference Range Interpretation Comments AST (test code = 14 U/L See_Comment [Automated message] The 1920-01) system which ge nerated this result transmit lakhwinder reference range : <=40. The reference range was not used to interpr et this result as paras l/abnormal. [facility] Atlanta[facility]art[facility] Aminotransferase 2021-10-24 11:49:10 Test Item Value Reference Range Interpretation Comments AST (test code = 14 U/L See_Comment [Automated message] The 1920-01) system which ge nerated this result transmit lakhwinder reference range : <=40. The reference range was not used to interpr et this result as paras l/abnormal. [facility] Atlanta[facility] Aminotransferase 2021-10-24 11:49:10 Test Item Value Reference Range Interpretation Comments AST (test code = 14 U/L See_Comment [Automated message] The 1920-01) system which ge nerated this result transmit lakhwinder reference range : <=40. The reference range was not used to interpr et this result as paras l/abnormal. [facility] AtlantaGl[facility] Uunvn3765-41-89 11:49:08 Test Item Value Reference Range Interpretation [...] diabetes Lab Interpretation (test Abnormal code = 55800-1) [facility] Atlanta[facility] Vctpx8740-90-00 11:49:08 Test Item Value Reference Range Interpretation [...] diabetes Lab Interpretation (test Abnormal code = 39960-8) [facility] AtlantaGl[facility] Ffqwg6865-20-46 11:49:08 Test Item Value Reference Range Interpretation [...] diabetes Lab Interpretation (test Abnormal code = 07151-5) [facility] Ientutbhmr2904-94-80 06:55:27 Test Item Value Reference Range Interpretation Comments IgG Total-Hart (test 830 mg/dL 767-1590 code = 2465-3) IgG1-Hart (test code = 418 mg/dL 496-792 3760-1) IgG2-Hart (test code = 157 mg/dL 171-632 L 2467-9) IgG3-Hart (test code = 56.8 mg/dL 18.4-106.0 8-7) IgG4-Hart (test code = 8.8 mg/dL 2.4-121.0 Test Performed 2468-10) by:[facility], [facility] [place], [place] [address]Goy Director: Petar Johnson M.D. Ph. D.; CLIA# [id number] 2 Lab Interpretation Abnormal (test code = 59666-9) [facility] Aodtfnvcdx1868-92-68 06:55:27 Test Item Value Reference Range Interpretation Comments IgG Total-Hart (test 830 mg/dL 767-1590 code = 2465-3) IgG1-Hart (test code = 418 mg/dL 032-764 0962-1) IgG2-Hart (test code = 157 mg/dL 171-632 L 7-9) IgG3-Hart (test code = 56.8 mg/dL 18.4-106.0 8-7) IgG4-Hart (test code = 8.8 mg/dL 2.4-121.0 Test Performed 2468-10) by:[facility], [place], [place] [address]Vth Director: Petar Johnson M.D. Ph. D.; CLIA# [id number] 2 Lab Interpretation Abnormal (test code = 41802-5) [facility] Vqhuxeojna3114-37-16 06:55:27 Test Item Value Reference Range Interpretation Comments IgG Total-Hart (test 830 mg/dL 767-1590 code = 2465-3) IgG1-Hart (test code = 418 mg/dL 123-203 2521-1) IgG2-Hart (test code = 157 mg/dL 171-632 L 2467-9) IgG3-Hart (test code = 56.8 mg/dL 18.4-106.0 2468-7) IgG4-Hart (test code = 8.8 mg/dL 2.4-121.0 Test Performed 2468-5) by:[facility] [place] [employer] [address], [facility] [place], [place] [address]Jta Director: Petar Johnson M.D. Ph. D.; CLIA# [id number] 2 Lab Interpretation Abnormal (test code = 21594-0) [facility] Jhgujbqbbr3729-27-47 06:55:27 Test Item Value Reference Range Interpretation Comments IgG Total-Hart (test 830 mg/dL 767-1590 code = 2465-3) IgG1-Hart (test code = 418 mg/dL 755-736 6574-1) IgG2-Hart (test code = 157 mg/dL 171-632 L 2467-9) IgG3-Hart (test code = 56.8 mg/dL 18.4-106.0 8-7) IgG4-Hrat (test code = 8.8 mg/dL 2.4-121.0 Test Performed 5) by:[facility] [address] [employer] [address] [place] [address], [facility] [place], [place] [address]Sgx Director: Petar Johnson M.D. Ph. D.; CLIA# [id number] 2 Lab Interpretation Abnormal (test code = 38724-3) [facility] Yaveczyukb9936-18-16 06:55:27 Test Item Value Reference Range Interpretation Comments IgG Total-Hart (test 830 mg/dL 767-1590 code = 2465-3) IgG1-Hart (test code = 418 mg/dL 510-401 9074-1) IgG2-Hart (test code = 157 mg/dL 171-632 L 2467-9) IgG3-Hart (test code = 56.8 mg/dL 18.4-106.0 8-7) IgG4-[place] (test code = 8.8 mg/dL 2.4-121.0 Test Performed 2468-5) by:[facility] [address], [place], [place] [address]Pem Director: Petar Johnson M.D. Ph. D.; CLIA# [id number] 2 Lab Interpretation Abnormal (test code = 27619-4) [place] [id number] 19:29:59 Test Item Value Reference Range Interpretation Comments IgG (test code = 6001) 751 mg/dL 610-1616 [place] [id number] 19:29:59 Test Item Value Reference Range Interpretation Comments IgG (test code = 6001) 751 mg/dL 610-1616 [place] [id number] 19:29:59 Test Item Value Reference Range Interpretation Comments IgG (test code = 6001) 751 mg/dL 610-1616 [facility] Test Item Value Reference Range Interpretation Comments IgG (test code = 6001) 751 mg/dL 610-1616 [place] [id number] 19:29:59 Test Item Value Reference Range Interpretation Comments IgG (test code = 6001) 751 mg/dL 610-1616 [facility] Test Item Value Reference Range Interpretation Comments IgA (test code = 5992) 191 mg/dL 85-499 [facility] Test Item Value Reference Range Interpretation Comments IgA (test code = 5992) 191 mg/dL 85-499 [place] 34586022-04-25 19:29:58 Test Item Value Reference Range Interpretation Comments IgA (test code = 5992) 191 mg/dL 85-499 [place] 34586022-04-25 19:29:58 Test Item Value Reference Range Interpretation Comments IgA (test code = 5992) 191 mg/dL 85-499 [place] 34586022-04-25 19:29:58 Test Item Value Reference Range Interpretation Comments IgA (test code = 5992) 191 mg/dL 85-499 [facility] 2021-10-22 15:30:07 Test Item Value Reference Range Interpretation Comments Submitted Clinical History u4cskFPgCOLiu6jvTEE (test code = 38805) mbGFuZzEwMzNcZnRuYm pcdWMxIHtccnRmMVxzc 0PpD4GwSzAlIJnbobPs XGRlZmxhbmcxMDMzXGZ 0bmJqXHVjMVxkZWZmMH ctKf6dwYYlcCzdKeIhU OCgv9reauLUdnoauIj9 n8xvMWBwPwG2uEJkHIp cV0sagsMeuRCyBYHrVP v5kJ86CFImsV3wiDRwO GqrgaAiXzG6TSulBFOi PtT6NYIfhHWfQHDnR3b yZWQwXGdyZWVuMFxibH ZbYWY6aMrkr0T4tTHss GVldHtcZjBcZnMyMiBO a3XvNBc7xFtpC4ThXLK kYsV4kCOvIXXcITrcKJ VeDENlvrM2yX90AVltt aN9jQEkh4Mys89rv009 aK2paHJrCVF9XIVvQND hvLVgAMFsTGB0ECZvcZ RpH5xaJIDjNV0aztpzZ MpiNPktJPZxpVO4JNRu xVOtG8VpDJKfMZlvCSA oezd3MgOpMu0ekHOplH ofLRwcz3bpu8ypeMCsV aa5LCYzKtHiFngyWUib o6Tzw2abGMRyzk7nQTB 1oECtoVzgn8O9rWApLT NxpADtqvItPHRkIsD3Y XvhXL7uff13SXIhPRV1 dg7jvHSnfMabikYktGV zPWcwV5YkQVAmb989AV ZhN2RwPURcj1C8vyDjD mFyZCEpfJB7gdK1QMRu RPv4yGZrxrJ0qwUxtFQ dE9pkbF3dXNQkQF8ljj gwn9vhVQxcOCtjEYRtu WZ4paO3OFTyeJUfG1Jj tM4aLKKlTSuoLQXafvr 0LgBxYs3iqQMnjUkhCV xzYmtwYWdlXHBnbmNvb nRccGduZGVjXHBsYWlu XHBsYWluXGYwXGZzMjR xuMlevVpjnE3eOyZmXm EtHXuxTD1eXLQoR4bvy YXqSFDsPZEsH2vpUsVm uC9fgEgzVFqsweFyWBF 6CEhgn3okgqhbdQGjhf U3rHNuNbGtUcT6LTkic GFpblxmMVxmczIyXGxh jiqkZSTaGGrwI5prPaK rMFGucBywQQzjr1CkHX YxXGZzMjJccGFyfX0= Diagnosis (test code = 34) u6yizKOyYDSvaLY7FrH yKDAar2ugs4IzzIWleO LmXIuspPGlqcDyme90f SP8pY34UN3vSFIyFgV2 ENCipeV8Oqz1LXXaXHT ouQPjC417k5qpc6zskc TpbKC5yFnlPREggaxuD gX1TZshKQHrkjmjLHf3 CAfiMCUteTZ2LXAkgYS bV1JkINLoCG5xicw4IU A5ILyrWVXvTgG4JZQng IYuCJVqnHzaREwxs073 YOD0MsPlNTBbooZrpGi zlA7lCtKiINVFLjCkHD WlwFsnE5ZdNAMhmJ8fy 1z5SAlnheRmLHh6QGTl Y1hpxuzkytFab5XaxJ2 zg3xsK7NbrJipE80kd0 vmcMIsxZC6sNZnEIGww aOpKLXeSFUujGvzZ9y2 aXNccGFyfQ== Gross Description (test m1wfmKSuXCQfbMPFXQw code = [id number]) wMVxhbnNpXHNwbHRwZ3 JrhuhyCBikSC9bFW6dd PgbcNMhcRYaRB4VRWAv ZmYxXHBhcGVydzEyMjQ zRJDavDXusPL7XKLcWK 1hcmdsMTgwMFxtYXJnc oL3FPGzpWNaO9PiMUEm JM9nbppaBTY2FSihtN6 bffBDMybqNs5exKVlwH tcZjFcZmNoYXJzZXQwX MQqaWcpJPSbTHi8dI9C RzakH10qm9O3Uon6MTS pCUXuK8RnMS6bJFIobZ ZvP07ALiuuHRK7CCDQG ukzFTDoMF0Ux0ijJRWp wECxSYQ7KYfyqFCdJBG gVJPjFHl0NBHlCNvjhU QfSA6ahFpvEcllmKxbd 2VjdCBcXGlkIDUxMDAy FXlqNOXcGA9FKfYeWBF 9PVPlPUKeELi1JYk4ZX 7MFhAkPMIyHOA7MIC5Z KPuUNv3EAjoQS5KXTMm XwQlDOL5YGVcVDHaRID fQKl8GAZuHTdhHTYgjN FsIFxcZnMgMTAgXFxmY vPrHDHsOIdgiyF9JRDk YWluXGJcZnMyMCBBOlx fYUXjLWszwJrbbV6kUX YxI79pr9RPe8AlML6BK Wn8wjGembcciT6kUEIn aeYsZKznfDGfO7rhAmp qPjGjWbGpZZTYq74oxD PciSCoJTPyf0HuNAv7w kXkG07xS5SrYCotPYDj bvCxNSRelGiaV3u7rLI 8DUQdHWCbRSBmD39rQT Lnrv2rxh50mnTgajAyn MCbrJHtIfCaw3G6PGUh v7E7MPTiZUBgyCVvhbi wLW21RWKeSOYxDS3yhK VkIHdpdGggcHJvYmFib WJuqOteiuEuxCN2UXXw VBzbRCUxeOjcGJa2JLW 4Qj6zqTMmSDMyroTIHR 6xASwrtj85IUK3v6jsl WVsZHtcKlxmbGRpbnN0 IEhZUEVSTElOSyBuYW1 lPUxJTktCRUdJTnwyMT NoBhqtdTAXPXR8XDeos AfzqRt5a0iqoXFhh9z6 GFauSRE7aXgUg3ydkJZ rXLkpRrcdaRKpvfJ7OD qAAOHNYCmCUuLcQD3cV PgVOlaYXlX0JbTqVQE5 BYvDI6VCrKR0Vum6EXi 8fXtcZmxkcnNsdCBcJz YVsB8tdJivrR3twMEfK 2hcZnMyMCANClxlcGlj ElAbpYXfLsOltrB3CYY jyYFxXHG1OU9sHCTjvi erDPKnTFQgUNJ0WMrsf J00aRVeDMLoUXMofBRw fVxwbGFpbiANClxzbC0 kQaGex6fdrRo8YGLBZj hatQEfzltebnV8ZTYlk 3yxqVvol3TgrGFbUG6l gDxvnC8jIcDcNvWGYa2 = Disclaimer (test code = q3adwRWiVXPbiBVkMgO 9844) sOYAjDHAob2kuFCVioM FuZzEwMzNcZnRuYmpcd RMtXVGqTfSsc3acr332 sYLts5kaILCqGlI0uKT sPAYyoYAoY772ZVNtJA tep8leg9PgSLQsbHHaa 0Z2DHSTwyvnwBh1rDad V38mh5D5ZvanB3kwPSQ iTFZiJ6AsOS6nXMDuIh u2UYC5GEZ4FZEdTGZyW 8OjYP5nBUVzsILoICd3 b2qgoBvfMXJhPLD5c5a rSJpzddQvTN4rkc9gwB p8r7gnwcOjXYHzQFJsr XUUKIPbP0IedNhgIj9u aGv8mWzyMplyRHC6Ooq 9SD1nob60kww3oYefJH JtjgdtYuG9DQrxJTSsb vuiUOx7MIaqXVGxfJS3 BMHtaRPzW7TwRWMjAC3 bkey5SUA7KFsbNYXvVy U6XQXccHUdRNFyrFjhC Eawa690ADZ7NaGyXQ8o C9Zho3O3lW2pdBVcYTI knGVvViDoHSPdxl4yrQ SuAAach7IhOQI3tvR0j JBzeBCdKIPqXS58Ahjl n9RsDylzCTY5JDAyzvJ ik9Rhp4naOzVqupRfE9 baL4LkVYFlEJPtBMZgT dPspbHkj6Afx4YclWHd pQn4t2myIAPxFVDfqMj dx5faXSY8NUAyS9S5cU Wft1weIIbkOFQbcBG3o sV6CKIlpPLeD2WwtR3j QSMyMQ7bhyz4a4ypEJF 6WAucALSrFqG9bsU0UI BcaGVhZGVyeTcyMFxmb 700RKK5XfXoVXCkn3Ju J5SuuJxyL44sdQnnK01 wGNAnwXtnmL1sxPuipJ 5cZjBcZnMyNFxxbFxwb BXqjzurCHnvniE6BElf fpftNSPvYKpkC2inNoE nZOZxvIreXAfjx3GvUK EvBSUdVyswmbC2EETKg 16lONGud3SmJSYsdO0s wHWyDJehquDupMA5NIc hdmUgYmVlbiBkZXZlbG 6cZTTjRY0gJAVyulGlm w2cxxSkRHYwFPSiC2Nl cmlzdGljcyBkZXRlcm1 evySiTMY9XSJYCW0NET RcPRDlv93aUIRhhOijn N2zySNhvaOfJISls3Fo sK9jxIDFDOFjY3vmTJ7 zIWblr5AhnHEnxEZenU J1CKAzk9GvBkNcjhUbb HMfsWJkI0VblEctM6fk CRWqWWWtewZyrMIkp0O wXKHtqDR0xZPsKT5CIj LSu67jHTIrFMFAfdTpK DWmuVwzzEL6rqO0eL0i LiBJZiBhcHBsaWNhYmx zBQGxg264fa1ydhN6LT KjAOMwfqcim8MaTBIeV HRyfQ53BDMiMLEgyv3e bakwnWQgqbCnS4Jdvvq 1sR0eKLTdIZxlBNWaSG ZzMjJcbGFuZzEwMzNca GljaFxmMVxkYmNoXGYx BIojT6pfLaLiHbLkZoe wYXJ9 [facility] Interpretation 2021-10-22 15:30:07 Test Item Value Reference Range Interpretation Comments Submitted Clinical History r1mqmBToTVSpb7ocDIX (test code = 44022) mbGFuZzEwMzNcZnRuYm pcdWMxIHtccnRmMVxzc 8GiH7PmLwOzTYjbpnJz XGRlZmxhbmcxMDMzXGZ 0bmJqXHVjMVxkZWZmMH ulOm2xxEDksShnQnZtD MMvk5akgmKWqnmviId9 q7hiLXOmIwB9fCDtBSm oV2cbjoSvnBWtELIdRC o7fX92LLSuaL0qbJWkG HdqcwGhIxU3CGguQFPm XuG3BTDwyZIyEVSvI7l yZWQwXGdyZWVuMFxibH HwUPJ2lJbwa4B8uZDau GVldHtcZjBcZnMyMiBO e8NhAJy2hCdoN7QdSAO bOjJ1qEElFJYkSYycNW QkYGSefcU3nE62AVjbm kG0fFSrz0Qtw37gm514 dQ2qfFWjYKS5TXHrEXY akZCvMYQtMBD3ASKknS UrF6rmZPUlPG4fnvrqQ MmwPCxzHYHdfGM0TDZd kDUrK9LgOHJiJSdzSCQ gmrg1KrJuIi7dyNVczC mkQWxgx0bmn9kciDPsP xy6IADlCwWiKfsuOPqh p7Pjw3ggWIGqhy1dJOA 7eFOmnIach7A4qMNpUA QnnDOgvkIgQKWoYtI0K RbrRW2bxc99GOKxHKY5 ns4nhHGfiBwgazVyfTI wTAndK2LfWABjw972YM KnB6NzAIEqf8A9cmCyN jMzEJFmsZH2nxB0JEPu UVg3zOLxwrI9gpZmzAX wR2nxvO6dLPVbQE9zus ksc4nbWOuiCAsvQDAlj KI5nbP7JHDraFNpM9Se nB8uQDCvFIyqVQWwduv 6NpFgWr1eyDWxyIznFG xzYmtwYWdlXHBnbmNvb nRccGduZGVjXHBsYWlu XHBsYWluXGYwXGZzMjR pnQeyqFnndQ6aKzKqFm YsGMfvBK3mFYRlW3vig EXvKNKmAOXbF5ouJrYa fA7nlRmhWYzdgjXpQDQ 9QEptn9httygjgZJlgb D7gIMgIaIxUvW7JGnnw GFpblxmMVxmczIyXGxh aehmCZXtOGxgT9geInG lAOWnhPfsEKvhy4EvAA YxXGZzMjJccGFyfX0= Diagnosis (test code = 34) b1lgxJPrBPUsoSS9EdT nONRcd4mjv9IjhIAxoU ShPFjolHRummAwqc90n KV2aV69QF7nMIBsSvL7 OIOgtyA3Mdh3EVGgBGQ zvZKdG570g2wzk8ohhz YybMY4jLiiRNGkrvwdX tI7CXwoATLcexvhIDr2 UGluLNMumTH2LIRwqMD jK4BxHEMnEG7dzng8DZ I3NLibKNKiCnR4VZSav AMcVCYuuZmnHCkek604 ROV6LrZhBUQckeKhqJo keZ6eAqQxQJEFVjIgTT NcjDzzR8PbICYazH7tx 4g4FBkgwfNuAVs9GJFu J0ipbaoyhaCyu3XleC5 qy9tfB3HcsPagZ28lp1 agjGPulTM8xCCzSZJkr aAcIYCuWTYxtMamU6u2 aXNccGFyfQ== Gross Description (test w6sueLAvPESjaHTOVYa code = [id number]) wMVxhbnNpXHNwbHRwZ3 AzvqzdXAcwHV6aVA3mk XovwGXmcNBnPT9LGLDf ZmYxXHBhcGVydzEyMjQ aMVLafIOkvXF7FRQpWZ 1hcmdsMTgwMFxtYXJnc qZ6ZCJekXAlE9EnGYAc YQ6jyxswDVQ7SQqkeP3 pftARIplxXk6gdGEccH tcZjFcZmNoYXJzZXQwX PWgfXjpYRHlQXs0zL2Q JusxS50sm3V7Yjb0RFN iBDHjL9ZlCV2oMUYiiG OqP51HDesbPSF5GFYDU yarUCSeQM2Ul8pbOTBk wGSmDUW4EOpmpPMsHME oRWQzPFm4KILkPMejlE XlOT4fbUbcZrilxRxdn 2VjdCBcXGlkIDUxMDAy UHyaTRJoEV4NYfEwTMH 3ZCXmTJMqOGu6XOo8BN 1HFfMyQOMbJOX0DUU0G BXiULw1SIplBE5CBGWn WdPsHZI5QHUaCXCrMBV cJMr5NIXhJPdpJWPqwF FsIFxcZnMgMTAgXFxmY yWtUNSwLVrsszD8HFLb YWluXGJcZnMyMCBBOlx iSPObJXrhlLpayX9kMH YdK11ec1MBj7HyFN5JH Se1jxYpdkfmyI4vDBUg vtVkOSsgaADyL6cvBmp xXwJcGyIxXQMTj51dgM PepUTaERThy9LiEXb5c cJhS36rK5XsMOeiXIPa gfOxVTAmcPuhM7e9zBA 7QERjWTGiRCToZ64nYQ Ptoz2pid62gwWwdgDbv CAytPReEeRbv9R7AEOl v3B4ODExDDUkqFIxzyr nZV12VWWuWTMxJM6nbT VkIHdpdGggcHJvYmFib KCpmAksnaDtrIZ4FCYb CEgkRYEuiLgdZHe8RKU 7Sp5imZMuINCkuaGFDO 4xXKjoqe19FLW7n5biz WVsZHtcKlxmbGRpbnN0 IEhZUEVSTElOSyBuYW1 lPUxJTktCRUdJTnwyMT YeIbbauPUVQSR6PJolt GkhsCp3g6caoEYcv9r1 YPgoTFR9cQpPw8tilGE fHQlhVqahkXQosbP2JU dVPUYVJEfXLcMvBI2xI GvLHrcGSaJ2AuOuNLM8 JHgUN5VVvZA4Yxp0LTy 8fXtcZmxkcnNsdCBcJz QYxE9iuDfyvD7uxZRuW 2hcZnMyMCANClxlcGlj SuRcmIQoPtEwlcH6MJW lzXGqQNC1YX6pHZNzye smXHJqRHSsVTH7OAnoy P04tDSwUIVhDDZqnTEi fVxwbGFpbiANClxzbC0 uRtEyl4viePp0QAHWQf aprFLxrdqgmvE9TMDdo 8kmbOncj6CalAOlXN2c lQkpjS7nMlNjErGVWq5 = Disclaimer (test code = y7ujiIJqCFPlvSLgNdE 9844) lGLYmLXKes3ivYEIxeW FuZzEwMzNcZnRuYmpcd ICzJKXjRsPma0opk157 aYFwd7plPROkWcF0fKO qTGTabAOyI911TGNkTV vao9xse8EsVMXrrFSyv 1U7FERYfexomCa5eHld A61lv3I5FkzaN9drKDZ aEOFbF7JbJF9bFOZkXu d6EKD5DQR5CZMrEGWlP 8OfMV6bNLZdjSFbOSn0 q9jsaXtoPICkMZC0c4n xAHbtkpUhRQ5uus1rgB n3m1cqtfQzZFUsWFRiq SIPEJLyD7YijDhjLn2m kPp6uEggMarkDJE5Emx 5XK5bxr01nnk1hMazYR GowhobZeR5SWzmYJHoo jciLRz2SGcvWLXxhXS5 CGYfmJFlF9ZeWDXdDP7 kkmg9WSY6XGtuUXWyZn C1MHYjiWJoYGVapEjlE Rdzj064ORN3TmRyNV7m A5Gfz5G3lM1haBEgVKP ipJFwAmPcQLOnis6khM SdZFyok9VjCBJ4vtU2w LQbsRKxPXBsHO31Eypg j7VeCbkdBYX7SJKrrmW qc4Blo4rfCqWfixCdL4 pwY2StBWOrBUChXWWqO tYwueKxb3Iek6ShsJOl tLk3n1qfDVEbUQCxgOw jr9gkJGB8VACgG0H8sA Hkz8swLSvrGOJloYJ1p jN2XTNnbWWbB5RnkP6j KXCpCR7oocy4w5wxEVM 8OLmpKOXzCdX7taU0BL BcaGVhZGVyeTcyMFxmb 146JMZ8FxXxAIWwf2Fu M4GeeMeqH12ilEfhX96 dCWMqmCqteU0kjFibmW 5cZjBcZnMyNFxxbFxwb UXalqovOItooiB3AXsc wxrpAPQvCQmtD9ixTwD tICBboWguNQvoj2CoAR LbRMErDkqiqzJ3KJRLk 62vWYKyd5FoEXHjzS2d zESdCHkphxBnnWX8NSu hdmUgYmVlbiBkZXZlbG 3dXZQsXV3yDSZkavSpd n8qkaHnBZYmKJDkW1Oq cmlzdGljcyBkZXRlcm1 fmwUiWAD2AZUVWC7XLN LvBONbo10fRAPbjDdcu O9duPZjsuEyWABth2Hc zG9hyERKZZPuL2vzID2 nUUvtc5RrrSFfkWPphZ J5UJZqe0FjFsXdmmPtr JQduKGuK8IqhLidU7xg SJPlQXFsuyWigYMyx9R nNZWbaTD2eMOaAG6WOi OYr56jKTZgOGXJxyOjA QRmqPrctLJ5nyM4fJ1f LiBJZiBhcHBsaWNhYmx iQMWmf463hw3zbhS0QW MnWQMsmwlve4ZuIYKkA LJgwE87UNAlRAEunf3i hzbpyHPzaiWvO4Szzjq 1rX0cGZIgLGzjJYGbJN ZzMjJcbGFuZzEwMzNca GljaFxmMVxkYmNoXGYx FLyzY2irNaGeXoHyVwl wYXJ9 [facility] 2021-10-22 15:30:07 Test Item Value Reference Range Interpretation Comments Submitted Clinical History z2bwoAWdWYNea9jdKTA (test code = 48835) mbGFuZzEwMzNcZnRuYm pcdWMxIHtccnRmMVxzc 0MlI2YzVbSeGCwdnvLc XGRlZmxhbmcxMDMzXGZ 0bmJqXHVjMVxkZWZmMH hoPp6bfPHxvJilRzJoM OKhu8eovyXCwxjegAx0 a7dkKSEqDrT4zKKjBZd wX9wguuBnyBTtYHUsDK i3iF83BVJcdZ1sxVCaB JzpffAwVcN0ZLgzRBEf VaO3JEPfqTWoCAEcH1i yZWQwXGdyZWVuMFxibH QzPEG8nUocx8L5xOOtk GVldHtcZjBcZnMyMiBO b6HcRJk2wVbxW2XzGPT xQnL5bJLyPCRiNNxiPR PvYQJlzhD1oO13ZJdxc wL1bTSfk9Pak31oi406 nL0mqKTjYWC8VEXeBUO fsVTcAGOxABF5BCXyaI CeL7luOXTdCQ4uxalzH AoaQTahMWZolPZ1ZNLv wSMdB8ViIMRcATzzXTG aqor2ZqCxRo0peXMwnO pmKNktn5ekq7eevRYpZ za6PQCvLqBtXigxGQyq c7Tfu4qrVIHwkf6yHLC 9qGQlcSdhv8R0rHNeHS NaxBTxqlFqDDGsAkT4J XzbMW5pnl45BVQpQBL1 zm3kyCNytBpgfkImoLR tBOhaL8NsVCBdt102SO MuI0WvLQEbj0D2xvCdO dBkYDPdgXD0smF4VNMz ALm0aBElprA1ljKaxSQ yC6aakG4lZPWeVK5rxn aka4scAZcvGNjwULFbb JT4ltN4OTIfeUUqA7Yf xU3lTLAcGJwpIHHaaik 5VrPgBa2uaGQobKlgOA xzYmtwYWdlXHBnbmNvb nRccGduZGVjXHBsYWlu XHBsYWluXGYwXGZzMjR ynZwnlUxeqD6xEyFnYu QjEIkrOM5yBFMpN1qqx UXmKTNaIDTdB7toLhRj xB0ioZrsQHsrmpQeJNR 6ABktj3iwbkkwhIDfol Q8sVFrIdFnPxA7BXfyv GFpblxmMVxmczIyXGxh zlcqGPQmJTmlE5gdWvA vCMJtkQriPHcrd9YoKN YxXGZzMjJccGFyfX0= Diagnosis (test code = 34) x8bmkBIcNSZuvLL4PpO iBCBmf6stx1LjxODcbH SbPPjumQPjtgIklq97t RN4tW78KT8zCSWrIoJ4 HGObngX6Noa7AZWuGRB geZKmS244i1bds4nrih YuiMP5rOqoRQRvbraxG bT2QZuuZLHwnyalXDv7 ZMasBRDeaTU8UKKaoJO zO8YpALBoMV9uuzy3QW G8VEojKDDtCzG3IYOgr MIyXDZfqLgrIJvhg499 TKJ5GnUlHZBuvpOmyCv prD3hHrWlSQEQDlHoSB CznJuvH9BgGQDijT4cx 8s9WFapnaZvBTk3WSAo Q8exjbzdemTmm1UagE1 ys3buW7DfmXtzE99bv4 ofqXHlpED9aRKeQFOeb qWcAUJbZCWnuIpmP7p1 aXNccGFyfQ== Gross Description (test i1hhuCSqWMZffLOQFQf code = [id number]) wMVxhbnNpXHNwbHRwZ3 ZtpgjtISbwKF6vYH9dy PzmpQPweRJaCB6SCYFo ZmYxXHBhcGVydzEyMjQ gMICosOWvlXJ9MCHuRC 1hcmdsMTgwMFxtYXJnc fN5QJTinXXyC8MgQJKw JN9hluctANI6VZdupZ2 ewjJZDcnzEc3rbTVofK tcZjFcZmNoYXJzZXQwX EHefKdtKTBzYBv1jY1H WyrbE03zd3B0Wtc3ZMA kIWZuM7WuUC9hIUHcoR PgP13VGkzmYDQ7ZRKWK xshFDWsWW7Yk3zcRNYr yZDcHNT4YHpuhUYgVLE hPHHnMTe1IQCdNTxhjT UhWU6nnWyjSazceFxnp 2VjdCBcXGlkIDUxMDAy SEfrUBNuVW8JOyUsYDZ 9KFUiZJUkMRw8CPn2UK 9LXqXlVDWtEBZ3MEY0K KVnVJp3VKdeZL1GIAYd IzSdSDH1ZPWsQLUuNNE yPMz0XBDiICbeIYPgtH FsIFxcZnMgMTAgXFxmY rIwNMMuXGphniD5EVQb YWluXGJcZnMyMCBBOlx sRDVeWFbjoEhqjV8rWK QbD86em6ARu5GoOE0PA Fw5ehYukaglmY6rFAOi spZcDRddkJQwM8vuPld cBuKwNqWzNFWUm90cfI PjyPPrMOAjd5BuMRp6j bQrN22sD1WqEKbwVWOe dpBdMJYzsAlgS5s4sTH 9OLOmORFwNMUlS04yIG Bwgk3fye55nqQwpvEha IPwqWBqNkNdt9Y0FQKd h5G6UMIoZNNrlVLxgwc yOG94CBKnTHCgEH5agR VkIHdpdGggcHJvYmFib IIwuZclidTyyBH2IQPi JEczRAJuqTqpMWq6GDS 0Oq4gjMLiGCZacjBVWC 5zOZseoh19UOR9n0tnx WVsZHtcKlxmbGRpbnN0 IEhZUEVSTElOSyBuYW1 lPUxJTktCRUdJTnwyMT WtMhdbtWJTZBV2CIalp VyrgTs8o1sdoJEtt8f1 GKdoZOR6kGbNi5jhcBV lEOrrMnrhkQDdfvJ7HF wOFVJJWAtOKbXaRW1uE JvEPxeXXjL6WrUrGGS9 YDlYG8DRaCN7Bmg3TEq 8fXtcZmxkcnNsdCBcJz UXsK9foZkziD5huJSdP 2hcZnMyMCANClxlcGlj InWkkMPrMxJmbpA6AIA ivJPaXUV9KF9uCTCrdx fxNYHhMGXlSTN6FMqkt N55aEWsFNWjFVEddFZo fVxwbGFpbiANClxzbC0 mGzIzs1miwTy5QEOJSr ukaOXuocddqzE1JTLma 6uynIlse0DjjLRqVZ9c tAlglT9vUjBkMqQGOn8 = Disclaimer (test code = n6awzEDyMDNzmRTeYjN 9844) hMJLgRPJwg5teZFVlvE FuZzEwMzNcZnRuYmpcd VYzRVVqIiYdn5oui560 eZMnc7uuUKExTcN0rUX gXXZdhGMrG485UPTlKC uir6wgm9VlMNTtcLLci 9C8NCDGkybxkRe9lGwv P58ah2S8QljpC3qyELE gJYFqP3XyIY0kEXZaPj a2BEZ7ZPX8GCSmZPBuB 4DjPE6dOHJfaPBuQCx5 x9zqwCagQIRdXIG9v8r yCMysboKfHB8dul5yuV z1j0idaqTiHWMlRWVzp MVOCRBlB5UtlIplNb5f gEt9lXmqRqgjDHC8Pnt 2VL3vpz56yvo4sSgqZW KpnghwOwC0ZQalQECvh vboDQa1SZtpTANzsDD8 TVMoyKXfV5SrDKKyFN7 pgrs0ZVP8JKvrLNJuNd E4GCIqtZJyDYJtmXcfF Rtuw154RAD8FxLxOL4o P6Fmo9C1vC8hvAQzSLP cwIEnSwFwDEXkbe4klO LfTLfaz5UaJXM8ckG9w IUguZHhHCPeQI29Vnhx c9QrQesdHNK0ETUtyiF zw4Wvg4kfRmAjwyKaN3 soK0HwTJUtFNZlJDMkU fHrfvZlf8Mmz4BegZNa fGm2n3bfKBBgJJAsuBw ev0lbPWC2ZHZzJ2C6eU Zte2tvYUvwTKQycGA6a qV5IADekLWhQ9RtbG1x UNYzPO8ktft3v4fcUTZ 7PZudNXQwToW5fsW0VC BcaGVhZGVyeTcyMFxmb 663ELR2DvJyGRNjd8Xk N9RxdLviL33mdEkoN57 eNSOmoDbtjF2ifIzqnV 5cZjBcZnMyNFxxbFxwb AKrbzcgTJrvrhM7SLem hmtdNWClYBgwQ5neYeQ pRNCtlCzyMHjwc4MpKN JxUJLtKwznllQ3NYWMl 61aMVSya1NmZOKbeG1g aIRrFTvrwqMoaWG1BIk hdmUgYmVlbiBkZXZlbG 0cQNKyYI7rSVDchyXgi l5kjnXqMSMvIKDqR1Ls cmlzdGljcyBkZXRlcm1 qbxOgOGU8IFDIDA9HJQ UsLMDed07iQPGwlPuqb E2nkCVbdtIvTBJqm9Me iG7zrPQEYPGnE1nqVI7 oXPodn9ZrbFPwgOLgcD E9KKYcq1RoYzRljvFpd XHyjJLkH3QgzVmmQ0tm BNHbRTJptfMukVYfu0I bVOZiqNM5gRSdGL8AQc LPy41aRUWiYGPPjiSkH NZhmWdhoWH1vkH2aU8h LiBJZiBhcHBsaWNhYmx cLIVvr899dy7ivaJ2QB WhPMWfkeurc1CmHFFyR QMvpN35YBVyPFMhfs2u kckaqNBrceKlW3Bimlp 1qT2lISHuTBynQWKlVL ZzMjJcbGFuZzEwMzNca GljaFxmMVxkYmNoXGYx LFwgQ2rjKwWeDuByMws wYXJ9 [facility] Interpretation 2021-10-22 15:30:07 Test Item Value Reference Range Interpretation Comments Submitted Clinical History d3kzwAXsKKCoi6ktIMT (test code = 07280) mbGFuZzEwMzNcZnRuYm pcdWMxIHtccnRmMVxzc 6DyY3GwBeBjUHhuxfSn XGRlZmxhbmcxMDMzXGZ 0bmJqXHVjMVxkZWZmMH akCt7laIPvhFqrJiLhS OAfa1yuixJVlpapwDd9 p9tkTDMnPoA0qFPwAQu mK8jbzqYpzFAvGEVmYD w0hK25MDEbtP5gyENlC FckywMcKoW6RMttKRZr YbT1YHEmdAYmIBGpV2e yZWQwXGdyZWVuMFxibH RvMPK8gOmmu6W0aBWag GVldHtcZjBcZnMyMiBO w8ZjJLn1zLomK8AqARI yZhL3nZGvJSSaGNkyEF LgMXBvgqO3pT70RKkgi dN6iCKxz6Wmj43ve478 sI3okUCvPTS4IQBrHQH ymKVjXVLtEPI9UYYnuD OoY5exQJUrEK3cmxoqZ EyoAUvyQNFkuRZ9UEXw lTBcY9ItPNWzFPrpEIB gkxc2NbAeIl2vtFTlsJ mzMCzkr4ypi9gbwVXaR nr6BNNgLmMaZnnmNAuv e5Tpq6qaZHYheh6nYTB 4sJXeeLaty7F2uMDcOS NedCIraeFyLCLkKvG0F EpxCI2iww82PHZgHZS2 ii2ljHGpdXaoopCzuHX oDYhaL2LtRBHyz663MF SjA4MiEEQcm7H9ktYmK yXgNAJltYP8eeW2LHSp IXq9dZUljtV0fjOixUD qV2fsdF7iMNJkYE2zkw nqj5htTGhcECpjWLBnx PN1vgE3CQVkiQFwH2Qx oD2kTCVuKLelQFVrfzi 9EoTvSb5giCDcsMcwCN xzYmtwYWdlXHBnbmNvb nRccGduZGVjXHBsYWlu XHBsYWluXGYwXGZzMjR tkXxnsYiliN4oHoUfXa AyXPhyNG1eENUuW6byp IOqEAHnALYhZ6owOvZx kO8ykTlmUNgtvoAtYMI 0KOflx5qqfibfzGCeoi C6cBTdNqLhQlC0JYysp GFpblxmMVxmczIyXGxh fmzeZWXmRGlaM4glEyG hRYOtbQpgEVozy3PnXQ YxXGZzMjJccGFyfX0= Diagnosis (test code = 34) w7udgCQeFENnyIQ5HsA fLSFul5msv2FljHVhcR JpFQwxzIXrpdDltj15y UK2vM48VI5oYQJoIbP0 GRQbznC8Nay4AJBfBCO biYQjP218q3yfo3swdi NqbMW7hNukVSAqlimwD zR2OZaxWFBvuygcDVh7 LCdgKEKylWE4ZBBuaYM rN5UjYXGpTT8bufe4FI Y7BTxxOASzAcS0NRVdq YBeRFRxrAloTYeey652 AHZ0RiNgJKBrawNzjKu vfO0rHcInVKRHIoQdHB BgyFxbE5GzHFBjnK5kc 8w6FVjaioXbBRk9BHUv E9sqmszoviKbx8IwbD1 vq5czN8OawRgiY62wl4 eodLLnaTU2nLJdZULax iUeRBJvBUPlpHjgO1l9 aXNccGFyfQ== Gross Description (test w7vyjKOlQMBapIIKEDp code = [id number]) wMVxhbnNpXHNwbHRwZ3 MwkitaSMrkID9hUU3il UggbOMzrOVnAZ5QIIXc ZmYxXHBhcGVydzEyMjQ zZDRftGHcvSX3MFCqVT 1hcmdsMTgwMFxtYXJnc gZ5JISqoRQgQ8GzDCQi MT2ixldjSAD3XVsdpK1 xofWAHwzjFk5tnNQisU tcZjFcZmNoYXJzZXQwX AFcwGcbOQNqCMt5bS3S SvtvC58ob9Q3Zbs8LBK xWMBbJ3FaZG7dFGLmmN VhO42JEhqaWCA1UTMZQ nbeXBFaTT3Ln8elDWWc gSLeYBP5NOwobCXrEYS sONWdNFo5SZAnQVxpeT XeUQ7juBewAaqlnCxhm 2VjdCBcXGlkIDUxMDAy ODymWTUbPL2GSyXuDIZ 1UWTrGMAgJGf2GCo3WJ 9ABaZoBRYtTDI4DHU0Q CJqRBm4BXvtMQ7WEMPw AzGoFCJ6WUWpNRTwPQV gIBc1XKIwZHdcIHDynG FsIFxcZnMgMTAgXFxmY nQqCZViCKgdvuW0UJGb YWluXGJcZnMyMCBBOlx rKNInZSzvoKcpsW3sEV BbC88xw6URl2LgLP6JH Lz4chUyvigrtN1kPAMx kiZsTWszoBLbL4txKic gNeLuXeJlLUHFj94cgD LviIZdQZTbl2GcAAs9j gLuQ36xB8FeJYreIEGh svIxUVTuhKdvV8v5aOE 0SNYzHPDuCNAuO17fGV Lghk6vaz27hjAdnxNep PVzvBFiYoFse1Y4QFGu g4J3BMZuOZHroEGkmxt xNP09TGPzXGKmMH7oyM VkIHdpdGggcHJvYmFib SGxgTnpmnEaxLZ5HBGl TCouKYRilKgiQHt4JNC 6Dd7uvVDpDBCropMTBI 9dJMslqk64WGG0a5zpn WVsZHtcKlxmbGRpbnN0 IEhZUEVSTElOSyBuYW1 lPUxJTktCRUdJTnwyMT XfCqckfSOCOKP8RKaxx ErciGh2g3ipqMKtc9m8 QVvsMCY2nUcZd9rabTE vJJknIreswFSlujK8RZ cDSLCCOZoMTnSeHO2iH UnTVjeNRmC0QrBxYWP1 QGeLB5TQvNA2Lkf9KYe 8fXtcZmxkcnNsdCBcJz UDqB7fvWtcaF2uiLRkK 2hcZnMyMCANClxlcGlj VtCjgXEzSzQsizO5RCE otAUmBKO3ZW0rVRQodh ekKBFrERYmWZN8ZEylb K20sBWzXOZhPDCccMCg fVxwbGFpbiANClxzbC0 rIiBmd3pxjJn1NVDTHa rokQZymatichT4OMPrb 8plmTdia0EcpHVsXE5v sFcnbE4fUqDrUdHSCt7 = Disclaimer (test code = y7vzcPFbFRIrbYRlMvD 9844) tDAVvAQSoz6xzZWMfsX FuZzEwMzNcZnRuYmpcd FHwOZHiZdDis4igy634 cYNxt5nxJKXsKpU4nZU mHAPgpDHnI691TMRjYT ygm5qgx1SfIWJpkVWyg 7U6KQICgjtkwGt6wTjp Z22gs0B9DsawI9cuPPT bAGNeX2MyUC4mBSNrMm t9OZZ8SCC6LHTjSHOhZ 5ThSF3iHVPauBTaYSf0 c5mulWtlBWLuDKP9u9j qXUxpwpLqQM9ded3wnI e8d8roamYlFJSkXNLiv REMIWWsM6KvtKrgQt3e yEs5bUdtQlpsJWE7Fei 0PF6avk65fhd7bYnbKM BdpbbeRkA1FRirPJCiz aasOIg3WUwgPADnxIP3 FDDseYKoG1LgQBWcCP7 padt7YXR7DKoxOMFcJg A1XPXugBCoVOWtuMxlA Alii457PAC3DfCcIW8z G8Exl8R8pV3zgIJmWBB wgGYfBtTrHJRumo7muH QxCGacb5OdGHO8ojA6i GAfsQGkFAPnHO67Wbld q9QnRrtvSTN9IAQwjjD oh6Lvw2yiCzJudsChX4 xfA2BmAAXqIPJkOJCxP dVmcuPtx2Bgw2NfoCKl bTu9r3zxBDKbHYChtTm yc0ksKZM0SMMkD5O0iA Rth1xdLKmdBSRnfWX5s eE2LFMekHBxE6AmrI1h HDUcCY2glmz7j6caQZO 2XMxaHDGyMxN3cbP6WD BcaGVhZGVyeTcyMFxmb 611KZU6NdBbUKMoc1Bq O6OjqItiY70luOyjK61 kIPEtbTgibU6nuWrbdT 5cZjBcZnMyNFxxbFxwb GKmgmvsBAgxehK8KTbl atapMFXhOOdjO2doVwD eHXZbjJuqEJngm7BrPY VxWAFePzymtcE9ZSQTi 82bSTIgl8GoMJHgtB0k bLOqVNoutuKfhGK8HIo hdmUgYmVlbiBkZXZlbG 0wVZCfVJ5gNXUgtfHug v2ktxDrWBIeJIPcF9Md cmlzdGljcyBkZXRlcm1 vrdRuKBN8CVKORK2LQY ThOOKjq52wXHXreVenb R7cfNIalgNaGNZnm0Ff cZ8nrSZOCMKiN8vlRJ4 yYPckj2ExkHVosSJplK S3TPXzz4GnDrHdiqEaz UXwvESdC5FjkSkaP9yy DNZaICTmkpPggCYgp2W aTGXkpXD3tEUaVM6SAr GIm59rSJTgRNGBdxWeU EXnpLkfgFH6rqU9qH7y LiBJZiBhcHBsaWNhYmx yWQRks956du2bjxJ8WR UrJLIqxgfml6SbEFMmY CXttN72DPLrHQHwgp1x aigkyPWruqRtY1Yjsxb 9uS4wLMRrBWjfUQMqNM ZzMjJcbGFuZzEwMzNca GljaFxmMVxkYmNoXGYx XQyxI0xhWjNqFoTuPrn wYXJ9 [facility] Bi[facility] Interpretation 2021-10-22 15:30:07 Test Item Value Reference Range Interpretation Comments Submitted Clinical History z9eboQObVFQyd4xbQEY (test code = 19727) mbGFuZzEwMzNcZnRuYm pcdWMxIHtccnRmMVxzc 4NaA0RpLqZrLFcwiqVo XGRlZmxhbmcxMDMzXGZ 0bmJqXHVjMVxkZWZmMH dzNo3naCEhdNuyOkRvX VEvn5eagiDFtwhgqGs6 c6coKHXpFfH5xSDxNIy iT0yrkuLfaHQaTQQtZD p5mW69DTTkqO1lkEJqZ FuiodVuClG8RBcyXXMq YrH1MQPyeGZfEGQoK0n yZWQwXGdyZWVuMFxibH EfUMK0hDhjj3E2lPIbl GVldHtcZjBcZnMyMiBO q8HbQJj2jBgqG6EmVGB bYjK8bXUjNXQwSDhvQN CeZEQcmdB9kY85VHeks bU7fQJmj7Qif21gk552 wU4ptOQlSDC9CWFuPRQ qjUIjIGLaDFM3FXZdvY HaY6ilNEYtTI1qcalvM JtzXStfJRLyiFQ8XWVv qEDrD0JrZRPsJDaqMYP lqbo5ZtTiOv9kfGWrjM cxSDcmh4iwy2mnsZNdP ee6JMXrBdSdErowQImi l3Iov3lxDZLogk7lGLE 9sODceHkxj0B9rALzPV OnzORdvyCrDSCuRvE9F ZcaOK4lrp84VTXaXCZ0 tj6smORbvXehnwQkhAL kXEugA9EtSVQll125TV DhZ6QjWIRgc3N0yrFhM eGiDRNdlBM3htZ1JOBi MLg5iBTozxU8hcBtuAO rX2yvfB6xZGVtOM6lij iln4kcYVquINtrDJRoz VH5tzW4AYMpgJUxM9Od cO1sHYOoVXqcWPMwubf 4WmKmHb0lnDTkbWryJD xzYmtwYWdlXHBnbmNvb nRccGduZGVjXHBsYWlu XHBsYWluXGYwXGZzMjR zvBvytPizdI3iOvSyFd IyJKtjWK9zPOQuV4zig TJuYSRbDYWsV3qxAgAf vP8ntTauYSyminLpQNY 8RJegx2pyttpufXTagn P1kGCcSwJgCyY4MRdxi GFpblxmMVxmczIyXGxh crwkOIOlQXdcA6ixCxL uCYGqmInxSNtnx8VgDL YxXGZzMjJccGFyfX0= Diagnosis (test code = 34) i3ckfMAsAFMmtDE8PuC lIKTwa0san7IfsHPmxL CsALfyyTZtilZtlz97m HB9xG45ST1nDLGzLuR9 JQKslfT3Wne3STEhZKX kxPZgX655i4edi1exuq DvnTC3oSpeWOHubfpbJ qP7FAloJSOpoxxpNHc2 ZLpyWLOkyRZ1IZIrlIW vU1BxUEUxMJ8ljbr4RD M8FRreAEVbVqH6YYEuu UTkBVBaiYnxTDajf967 ZCM6WjUpKVVurrTtdWu miL8cKuUdRRWMVhBiCB XnkTtsD9HxBELmeC1je 2p7GJkkesIyKZf3GIVl C7sktfltkzKvp3XysG4 ol1phC5NalYibV64eg0 cfyXYlgLN4dGZnWKIdp fFbCAScRBUgrLjjA5k0 aXNccGFyfQ== Gross Description (test n7zjoWEoFCNhqCZOJDi code = [id number]) wMVxhbnNpXHNwbHRwZ3 OypfjcHOdkXU4uEX8zw BnbrPGunNFrQU9WSBOg ZmYxXHBhcGVydzEyMjQ rFWCwvSNldAS7WPBdUK 1hcmdsMTgwMFxtYXJnc eO6XVOpnMPnQ1VjRYOm XU5kvruaIZE0VNniiB5 bktAOYknsHu7feMTmcV tcZjFcZmNoYXJzZXQwX JDzzOczDCJjZMo9rP2K ZickW66ig8W3Clz3HMX eYKPnT2TxSD1nAREpzC RrM16VUxwgHHA5KJIPH gwwSPUqUC9Rr6cuXJSx nQUmBPV3XEejeODeLIS lFDSfVEw5OUOfMXbmgO QoYS8hiAbuIvjwpZgxq 2VjdCBcXGlkIDUxMDAy RPftTIBxYL0QQjTnKQS 2YHKzUMAeAJz5CAd8GQ 4UPuKbPGUwQHN7JBB3O IPeLIt9KGokAK5UUJPi QvRzLOH0RTPlZDYhTFC hYPj3EPJvUEaiDTZpbQ FsIFxcZnMgMTAgXFxmY cFcPWYjCZmdpiM1BHDa YWluXGJcZnMyMCBBOlx hAPGaTHexaGgxsM7pBG OoH32tn9TVm6SmLT6ZQ Aq1zmAymciadW5wQWQf vcHiYBpzaSRdN3onCyd kVjPrMqVmYFCXt66dtU FhqFElTPMbm5HtTYr3n oVxJ58wM5SsRBniRWIi vzDrESSklXorS8m2oVC 4RSRdZBRrYDNxN17jYO Qsrx3xjt53jmAlodMpw LTodPJoUxXqe7V4CKGq p2F6LUKyYMAgxTQeego kJI41VSWsGFXmLB1dbA VkIHdpdGggcHJvYmFib MUfiLrkmmBnnKZ9WVAj TFvdOVMrlTwlLXw2IDZ 8Ht9qkDHhVOLnmfUKGD 6vKBgsqy95VZD4g5cxa WVsZHtcKlxmbGRpbnN0 IEhZUEVSTElOSyBuYW1 lPUxJTktCRUdJTnwyMT NzJopzzKERBYC3WOpvh JwchTf0h3oxxJFnn2q0 WVrtTKW1jAeYy1hrxGZ pRAciSkbnbRRoxbV9FT mYXOLFGOvDEgOvIC9jU OfAAgfPYjA3ZnHdGVJ1 DNhER7NOpKI0Hjv7OXg 8fXtcZmxkcnNsdCBcJz QCeA2npKuhrM4qxNAaC 2hcZnMyMCANClxlcGlj XgDbtGWzNfWayaJ2PWM rcIYqSKK2IP8mRALmbt zfOHMnZAMlVRO1ODjhv D41pZWdUEKlNLYyaBYa fVxwbGFpbiANClxzbC0 cPeWcc6zstLi6ULXXDe jbaEGdmalzutT8VSVmx 9dbfUprw6KyqSKqYD5k vBqdeX6wXnUnTkDROw8 = Disclaimer (test code = e3hbvQNpBEXidVVzSqB 9844) iLFErKKLgi2ymNLQkcR FuZzEwMzNcZnRuYmpcd MMuFZXhIjUti9pgp777 nPPqz4qtFWJsUrU4sXW zFJGldJXlL275VRIiGY uds5nmm2JqEBFdpEHwi 5L0WNJWjhxdlHo3oYfa N80vj1V4EmyuV7ueKPN kGBKkL7NvBX4aAYGsRy z2IWW3FLT0IZJdZTKcV 6MnVJ4vMRZecQXqUXt1 v9ppwIwpCRPrIPV5f5z mVNxzcdWdME5jet8niF m2c8rcglZdHDByHLImf XXTTUGzJ3KfdJnsJu3u dMw7aMzsOseeEEO0Dju 4UQ3gzk42ajc5iUceTK DdowkpVwA9YZttSDAgz ucdBNy0GKweCNMlbQR9 IGGxdCPhL4HzSHScCF5 rted0KJE1VVwpWKBgYf X6APZcvPGmCWKyqZokC Nlne704BNF1RyMgCM7h S5Knl7T1qN2maDQbLTT kcSWhGtAuWZFjnr7moL OgNJcat4GaLNQ1kuQ8u AWrtWLtXJStKX17Hwla j8AtXxwqAVW9PVRxehQ bz7Zsq7fuRrGhvqBhV3 ovY6CzGYMeJKNfEMYfE mPnouDzt6Ajj9PtxMXw xGo7c7phSFHkGNBlzCa wx5jcNMG3PJGwD7W0vV Gks6jfOPijWLZznPI3b iO9ZFPdfUOaI6GvqQ6p BYIhEF9fnbm5m6lxOZO 1MLmtHPDmCaP1diB2WV BcaGVhZGVyeTcyMFxmb 824PCP0QhCpRYFgy7At G9LprOiqJ44csRucD67 qNQLgpMhcoI6rwQoqnO 5cZjBcZnMyNFxxbFxwb PEwapzuTBnprfU9ALso kgjvSMXpUFhiN4gaMhD qOYUbuPxwJWrrc0IlIC AoQJZeMvyzntF5ESGKz 09dWWQmo4QmGFTbrK5t qIDpAOyejrTlaHO6HKw hdmUgYmVlbiBkZXZlbG 8aRQJcPK6pPTIlcpEwr n0edpPaCXQmLDWrJ3Ud cmlzdGljcyBkZXRlcm1 qziSdRCS9LZHCVZ9UCV GdKKCxb47wJYXcuSemy I3bhBCwqdUeDSPmg6Qo mJ4ewTMWGSAsL1xpTV9 tIVciq5ZkdYSiwRAdlU S7PIYtw3UvQkQbycVnr DMdeMCfE3CyiPrpG7pf NNOxXYRunqMluNFhz9G uGLJfsES5wZSeOE2IBp AYg69rRTQoRIEZveWrZ OZdwMnyjIO9mnA0sG2b LiBJZiBhcHBsaWNhYmx fGYVyj819nq6qsbE5LY MaXFZowshby7OeIKKsP SNpoF24XMLqNQMaur2s trcneTLvwxQeJ8Vanat 1kE0xLGOpFOkrOUKkNE ZzMjJcbGFuZzEwMzNca GljaFxmMVxkYmNoXGYx SZcxO1ytMiNkQvIbZho wYXJ9 [facility] Cancer ElbertFungyasir, [id number] 18:04:34 Test Item Value Reference Interpretation Comments Range Fungitell S-V (test 101 pg/mL <=80 H Interpr etation: The code = 9239) [...] for thesemodifi cations were determined by E [employer] [facility].If samp le result is greater than 50 0 pg/mL, physician may o rder atiter of the sample. Please contact [employer] [facility] if you wouldlike t o order a retest of this sample to obtain an actua l value.Samples a re held for 1 week after in itial testing date. Perf ormed At:[facility] [id number] [address] [address]Hwgaviubpz Director: Andi Taylor Ph.D ., BCLD (ABB)CLIA#: [id number] e: Lab Interpretation Abnormal (test code = 29785-4) [facility] Cancer ElbertDee, [id number] 18:04:34 Test Item Value Reference Interpretation Comments Range Fungitell S-V (test 101 pg/mL See_Comment H Interpr etation: The code = 9239) [...] for thesemodifi cations were determined by E [employer].If samp le result is greater than 50 0 pg/mL, physician may o rder atiter of the sample. Please contact [employer] [facility] if you wouldlike t o order a retest of this sample to obtain an actua l value.Samples a re held for 1 week after in itial testing date. Perf ormed At:[facility] [facility] [id number] [address] [employer] [address]Aiahjevfpr Director: Andi Taylor Ph.D ., BCLFallon (MEETA)CLIA#: [id number] e: [Automated message] The sy stem which generated this result transmitted ref erence range: <=80. Th e reference range was not u sed to interpret this result as normal/abnormal . Lab Interpretation Abnormal (test code = 88517-8) [facility] Cancer ElbertDee, [id number] 18:04:34 Test Item Value Reference Interpretation Comments [...] for thesemodifi cations were determined by E [employer] [facility].If samp le result is greater than 50 0 pg/mL, physician may o rder atiter of the sample. Please contact [employer] if you wouldlike t o order a retest of this sample to obtain an actua l value.Samples a re held for 1 week after in itial testing date. Perf ormed At:[facility] [id number] [address] [place] [address]Qzxgtekxnh Director: Andi Taylor Ph.D ., BCLD (ABB)CLIA#: [id number] e: Lab Interpretation Abnormal (test code = 83751-9) [facility] Cancer ElbertFungitell, [id number] 18:04:34 Test Item Value Reference Interpretation Comments [...] for thesemodifi cations were determined by E [employer] [facility].If samp le result is greater than 50 0 pg/mL, physician may o rder atiter of the sample. Please contact [employer] [facility] if you wouldlike t o order a retest of this sample to obtain an actua l value.Samples a re held for 1 week after in itial testing date. Perf ormed At:[facility] [id number] [address] [address]Kbswaobiuu Director: Andi Taylor Ph.D ., BCLD (ABB)CLIA#: [id number] e: Lab Interpretation Abnormal (test code = 99232-0) [facility] Cancer ElbertSterlingngyasir, [id number] 18:04:34 Test Item Value Reference Interpretation Comments [...] for thesemodifi cations were determined by [employer].If samp le result is greater than 50 0 pg/mL, physician may o rder atiter of the sample. Please contact [employer] [facility] if you wouldlike t o order a retest of this sample to obtain an actua l value.Samples a re held for 1 week after in itial testing date. Perf ormed At:[employer] [facility] [id number]Core[facility] [place], [place] [address]Ptjurzydmm Director: Andi Taylor Ph.D ., BCLD (ABB)CLIA#: [id number] e: Lab Interpretation Abnormal (test code = 98227-1) [facility] Path Review 2021-10-18 14:39:17RMP PRReviewed and Electronically signed by Pathologist:Mary Beth Parikh MD, PhD #[id number] [facility] [id number] 14:39:17RMP PRReviewed and Electronically signed by Pathologist:Mary Beth Parikh MD, PhD #[id number] [facility] Path Sdgprb0173-94-32 14:39:17RMP PRReviewed and Electronically signed by Pathologist:Mary Beth Parikh MD, PhD #[id number] [facility] Path Ttxsbr0554-17-01 14:39:17RMP PRReviewed and Electronically signed by Pathologist:Mary Beth Parikh MD, PhD #[id number] [facility] Review 2021-10-18 14:39:17RMP PRReviewed and Electronically signed by Pathologist:Mary Beth Parikh MD, PhD #[id number] [facility], TICKET WORKER Ipdq8436-41-24 14:29:47 Test Item Value Reference Range Interpretation [...] 6203) Lab Interpretation (test code = Abnormal 71866-3) [facility] Cancer ElbertRespiratory PCR Panel, TICKET WORKER Swab 2021-10-18 14:29:47 Test Item Value Reference [...] 6203) Lab Interpretation (test code = Abnormal 61263-7) [facility], TICKET WORKER Swab 2021-10-18 14:29:47 Test Item Value Reference [...] 6203) Lab Interpretation (test code = Abnormal 88866-1) [facility], TICKET WORKER Swab 2021-10-18 14:29:47 Test Item Value Reference [...] 6203) Lab Interpretation (test code = Abnormal 41543-5) [facility] Cancer ElbertRespiratory PCR Panel, TICKET WORKER Swab 2021-10-18 14:29:47 Test Item Value Reference [...] 6203) Lab Interpretation (test code = Abnormal 29184-9) [facility] Glucose [id number] 11:58:24 Test Item Value Reference Interpretation Comments Range POC Glucose (test 196 mg/dL 70-99 H RN Notifie dCapillary code = 38330-4) blood sample s, e.g. obtained by fingerstick, [...] = 9554) Performing Lab (test [facility] code = 63584) [facility] MD Mnaohar gustafson Clinical Lab, [address] [place] [address] 30; [employer] Cake Decorator: Aletha Arciniega MD Lab Interpretation Abnormal (test code = 91620-4) [facility] Glucose Ejnhmc3395-69-92 11:58:24 Test Item Value Reference Interpretation Comments Range POC Glucose (test 196 mg/dL 70-99 H RN Notifie dCapillary code = 26340-8) blood sample s, e.g. obtained by fingerstick, [...] = 9554) Performing Lab (test [facility] code = 24111) [facility] MD Manohar gustafson Clinical Lab, [address] [place] [address] 30; [employer] Decorator: Aletha Arciniega MD Lab Interpretation Abnormal (test code = 34594-0) [facility] Glucose [id number] 11:58:24 Test Item Value Reference Interpretation Comments Range POC Glucose (test 196 mg/dL 70-99 H RN Notifie dCapillary code = 21454-4) blood sample s, e.g. obtained by fingerstick, [...] = 9554) Performing Lab (test [facility] code = 75693) [facility] MD Manohar gustafson Clinical Lab, [address] [place] [address] 30; [employer] Decorator: Aletha Arciniega MD Lab Interpretation Abnormal (test code = 35564-4) [facility] Glucose [id number] 11:58:24 Test Item Value Reference Interpretation Comments Range POC Glucose (test 196 mg/dL 70-99 H RN Notifie dCapillary code = 44523-0) blood sample s, e.g. obtained by fingerstick, [...] = 9554) Performing Lab (test [facility] code = 54527) [facility] Manohar gustafson Clinical Lab, [address] [place] [address] 30; [employer] Cake Decorator: Aletha Arciniega MD Lab Interpretation Abnormal (test code = 61012-9) [facility] Cancer [facility] Glucose [id number] 11:58:24 Test Item Value Reference Interpretation Comments Range POC Glucose (test 196 mg/dL 70-99 H RN Notifie dCapillary code = 78174-5) blood sample s, e.g. obtained by fingerstick, [...] Performing Lab (test [facility] code = 11952) [facility] MD Manohar gustafson Clinical Lab, [address] [place] [address] 30; [employer] Decorator: Aletha Arciniega MD Lab Interpretation Abnormal (test code = 44881-6) [facility] Screening Eynueiw1469-35-54 18:35:38 Test Item Value Reference Range Interpretation Comments Final Report (test No Methicillin resistant code = 8488) Staphylococcus aureus isolated. Path Review (test The results have been code = 8492) reviewed and electronically signed by Pathologist:Mary Beth Parikh MD, PhD #[id number] [facility] Screening Ieygefq7410-61-16 18:35:38 Test Item Value Reference Range Interpretation Comments Final Report (test No Methicillin resistant code = 8488) Staphylococcus aureus isolated. Path Review (test The results have been code = 8492) reviewed and electronically signed by Pathologist:Mary Beth Parikh MD, PhD #[id number] [facility] Screening Urjcbey5835-80-11 18:35:38 Test Item Value Reference Range Interpretation Comments Final Report (test No Methicillin resistant code = 8488) Staphylococcus aureus isolated. Path Review (test The results have been code = 8492) reviewed and electronically signed by Pathologist:Mary Beth Parikh MD, PhD #[id number] [facility] Screening Hntkvud7960-12-88 18:35:38 Test Item Value Reference Range Interpretation Comments Final Report (test No Methicillin resistant code = 8488) Staphylococcus aureus isolated. Path Review (test The results have been code = 8492) reviewed and electronically signed by Pathologist:Mary Beth Parikh MD, PhD #[id number] [facility] Screening Nyaucfi2158-07-75 18:35:38 Test Item Value Reference Range Interpretation Comments Final Report (test No Methicillin resistant code = 8488) Staphylococcus aureus isolated. Path Review (test The results have been code = 8492) reviewed and electronically signed by Pathologist:Mary Beth Parikh MD, PhD #[id number] [facility] Atlanta[facility] Trough Vancomycin trough on 10/17/21@10:30AM. Nurse please [...] is code = not availablefo r this 28365-7) sample. The donna e reported is the samplecollectio n date. Vanco Tr Dose 10/17/2021 Level, date, a nd time Date (test of previous dos e is code = not availablefo r this 26295-3) sample. The donna e reported is the samplecollectio n date. PAIGE (test Vancomycin trough on code = PAIGE) 10/17/21@10:30AM. Nurse please coordinate with lab to draw trough approximately 11 - 11.5hours after 10/16/21 evening vanco dose. Hold vancomycin doses if trough is greater than 20 and notify MD. Thanks! [facility] Vancomycin trough on 10/17/21@10:30AM. Nurse please coordinate with lab to draw trough approximately 11 - 11.5hours after 10/16/21 evening vanco dose. Hold vancomycin doses if trough isgreater than 20 and notify MD. Thanks!2021-10-17 18:05:08 Test Item Value Reference Range Interpretation Comments Vanco Trough 6.0 See_Comment Toxic Trough Le lawrenec: (test code = >20 mcg/mL [Aut omated 4092-3) message] The sy stem which generated this result transmit lakhwinder reference range : 5.0 - 20.0 mcg/mL. Th e reference range was not used to int erpret this result as normal/abnormal . Vanco Tr Dose See note Level, date, a nd time Time (test of previous dos e is code = not availablefo r this 54501-2) sample. The donna e reported is the samplecollectio n date. Vanco Tr Dose 10/17/2021 Level, date, a nd time Date (test of previous dos e is code = not availablefo r this 71778-9) sample. The donna e reported is the samplecollectio n date. PAIGE (test Vancomycin trough on code = PAIGE) 10/17/21@10:30AM. Nurse please coordinate with lab to draw trough approximately 11 - 11.5hours after 10/16/21 evening vanco dose. Hold vancomycin doses if trough is greater than 20 and notify MD. Thanks! [facility] Cancer ElbertVancomycin Trough Vancomycin trough on 10/17/21@10:30AM. Nurse please [...] is code = not availablefo r this 57262-7) sample. The donna e reported is the samplecollectio n date. Vanco Tr Dose 10/17/2021 Level, date, a nd time Date (test of previous dos e is code = not availablefo r this 32012-3) sample. The donna e reported is the samplecollectio n date. PAIGE (test Vancomycin trough on code = PAIGE) 10/17/21@10:30AM. Nurse please coordinate with lab to draw trough approximately 11 - 11.5hours after 10/16/21 evening vanco dose. Hold vancomycin doses if trough is greater than 20 and notify MD. Thanks! [facility] Vancomycin trough on 10/17/21@10:30AM. Nurse please [...] is code = not availablefo r this 38544-0) sample. The donna e reported is the samplecollectio n date. Vanco Tr Dose 10/17/2021 Level, date, a nd time Date (test of previous dos e is code = not availablefo r this 56223-8) sample. The donna e reported is the samplecollectio n date. PAIGE (test Vancomycin trough on code = PAIGE) 10/17/21@10:30AM. Nurse please coordinate with lab to draw trough approximately 11 - 11.5hours after 10/16/21 evening vanco dose. Hold vancomycin doses if trough is greater than 20 and notify . Thanks! [facility] Vancomycin trough on 10/17/21@10:30AM. Nurse please [...] is code = not availablefo r this 77059-7) sample. The donna e reported is the samplecollectio n date. Vanco Tr Dose 10/17/2021 Level, date, a nd time Date (test of previous dos e is code = not availablefo r this 90273-7) sample. The donna e reported is the samplecollectio n date. PAIGE (test Vancomycin trough on code = PAIGE) 10/17/21@10:30AM. Nurse please coordinate with lab to draw trough approximately 11 - 11.5hours after 10/16/21 evening vanco dose. Hold vancomycin doses if trough is greater than 20 and notify MD. Thanks! [facility] Atlanta[facility]ion[facility] Urine Antigen Path [id number] 15:56:29Legionella Urine Antigen Path ReviewReviewed and Electronically signed by Pathologist:Mary Beth Charles, PhD #[id number] [facility]ENTERUnEast[facility] HospitalLegionella Urine Antigen Path Pklhru9107-82-11 15:56:29Legionella Urine Antigen Path ReviewReviewed and Electronically signed by Pathologist:Mary Beth Charles, PhD #[id number] [facility] CAN[facility]ER LAFAYETTEUnEastland Memorial Hospital Legionella Urine Antigen Path Gejdui8268-56-70 15:56:29Legionella Urine Antigen Path ReviewReviewed and Electronically signed by Pathologist:Mary Beth Charles, PhD #[id number] [facility] CAN[facility]ER LAFAYETTEUnEastland Memorial HospitalLegionella Urine Antigen Path Zpwqgv0338-01-07 15:56:29Legionella Urine Antigen Path ReviewReviewed and Electronically signed by Pathologist:Mary Beth Charles, PhD #[id number] [facility]ENTERUnEast[facility] HospitalLegionella Urine Antigen Path Thjwaw0183-91-06 15:56:29Legionella Urine Antigen Path ReviewReviewed and Electronically signed by Pathologist:Mary Beth Charles, PhD #[id number] [facility]ENTERUnEastland Memorial HospitalProcalcitonin2022-04-20 11:00:32 Procalcitonin<0.04<=0.08 ng/mLUT [facility]ITALUnEastland [facility] HospitalProcalcitonin2022-04-20 11:00:32 Procalcitonin<0.04<=0.08 ng/mLUT [facility] KingwoodProcalcitonin2022-04-20 11:00:32 Test Item Value Reference Range Interpretation Comments Procalcitonin (test code <0.04 See_Comment Pro calcitonin > 2.00 = 46762-6) ng/mL: Procalci tonin levels above 2. 00 [...] d ilution as it exceeds t he category specialist's recommended ching it. Caution should be exercised when interpreting nunez ch values and done in con junction with clinical c ontext. [Automated mess age] The system which ge nerated this result tra nsmitted reference range : <=0.08 ng/mL. The refe rence range was not u sed to interpret this result as normal/abnormal . [facility] AtlantaProcalcitonin2022-04-20 11:00:32 Test Item Value Reference Range Interpretation Comments Procalcitonin (test code <0.04 See_Comment Pro calcitonin > 2.00 = 57480-1) ng/mL: Procalci tonin levels above 2. 00 [...] d ilution as it exceeds t he category specialist's recommended ching it. Caution should be exercised when interpreting nunez ch values and done in con junction with clinical c ontext. [Automated mess age] The system which ge nerated this result tra nsmitted reference range : <=0.08 ng/mL. The refe rence range was not u sed to interpret this result as normal/abnormal . [facility] Cancer XlvenpJeapxijlygzbi6073-92-46 11:00:32 Test Item Value Reference Range Interpretation Comments Procalcitonin (test code <0.04 See_Comment Pro calcitonin > 2.00 = 86500-8) ng/mL: Procalci tonin levels above 2. 00 [...] d ilution as it exceeds t he category specialist's recommended ching it. Caution should be exercised when interpreting nunez ch values and done in con junction with clinical c ontext. [Automated mess age] The system which ge nerated this result tra nsmitted reference range : <=0.08 ng/mL. The refe rence range was not u sed to interpret this result as normal/abnormal . [facility] AtlantaLegionella Urine Bcwnpjv5805-60-23 19:49:58 Test Item Value Reference Range Interpretation Comments Legionella Urine Antigen Negative Interpretation (test code = 0732717) [facility] AtlantaLegionella Urine Nfzgeos9040-30-99 19:49:58 Test Item Value Reference Range Interpretation Comments Legionella Urine Antigen Negative Interpretation (test code = 8177180) [facility] AtlantaLegionella Urine Beowjna0414-62-64 19:49:58 Test Item Value Reference Range Interpretation Comments Legionella Urine Antigen Negative Interpretation (test code = 6523093) [facility] AtlantaLegionella Urine Ifionzg0947-88-27 19:49:58 Test Item Value Reference Range Interpretation Comments Legionella Urine Antigen Negative Interpretation (test code = 7239202) [facility] AtlantaLegion[facility] Urine Jymssef1442-05-06 19:49:58 Test Item Value Reference Range Interpretation Comments Legionella Urine Antigen Negative Interpretation (test code = 5126711) [facility] Ant[facility] Jcxoyd9366-89-28 18:06:35Streptococcal Urine Antigen Path ReviewReviewed and Electronically signed by Pathologist:Mary Beth Parikh MD, PhD #[id number] [facility]ENTERUnNacogdoches Medical Centertreptococcal Urine Antigen Path Bxgabb3693-80-77 18:06:35Streptococcal Urine Antigen Path ReviewReviewed and Electronically signed by Pathologist:Mary Beth Parikh MD, PhD #[id number] [facility]ENTERUn[facility] Hospital Streptococcal Urine Antigen Path [id number] 18:06:35Streptococcal Urine Antigen Path ReviewReviewed and Electronically signed by Pathologist:Mary Beth Parikh MD, PhD #[id number] [facility]ENTERUnNacogdoches Medical Centertreptococcal Urine Antigen Path [id number] 18:06:35 Streptococcal Urine Antigen Path ReviewReviewed and Electronically signed by Pathologist:Mary Beth Parikh MD, PhD #[id number] [facility]ENTERUnNacogdoc[facility] Medical Centertreptococcal Urine Antigen Path Review 2021-10-16 18:06:35Streptococcal Urine Antigen Path ReviewReviewed and Electronically signed by Pathologist:Mary Beth Parikh MD, PhD #[id number] [facility]ENTERUnNacogdoches Medical Centertreptococcus pneumoniae Urine Yklkcqg8245-85-20 16:43:46 Test Item Value Reference Range Interpretation Comments Streptococcal Urine Antigen Negative Negative Interpretation (test code = 84069677) [facility] Hospitaltrept[facility] pneumoniae Urine Hsnridq2820-78-05 16:43:46 Test Item Value Reference Range Interpretation Comments Streptococcal Urine Antigen Negative Negative Interpretation (test code = 16500522) [facility] Hospitaltreptococcus pneumoniae Urine Ibjeyob3626-70-21 16:43:46 Test Item Value Reference Range Interpretation Comments Streptococcal Urine Antigen Negative Negative Interpretation (test code = 03366741) [facility] Hospitaltreptococcus pneumoniae Urine Pndngrs3148-58-67 16:43:46 Test Item Value Reference Range Interpretation Comments Streptococcal Urine Antigen Negative Negative Interpretation (test code = 85524158) [facility] Hospitaltreptococcus pneumoniae Urine Exlgjrc1631-99-44 16:43:46 Test Item Value Reference Range Interpretation Comments Streptococcal Urine Antigen Negative Negative Interpretation (test code = 15410983) [facility] AtlantaTroponin T (In-House)2021-10-15 18:48:52 Test Item Value Reference Range Interpretation Comments Troponin T (test code = 23 ng/L <=18 H < 19 ng/L Suggest 24878-6) retest at 3 to 6 hours later [...] interferences a nd falsely low res ults. Lab Interpretation Abnormal (test code = 78510-7) [facility] AtlantaTroponin T (In-House)2021-10-15 18:48:52 Test Item Value Reference Range Interpretation Comments Troponin T (test code = 23 ng/L See_Comment H < 19 ng/L Suggest 26532-5) retest at 3 to 6 hours later [...] res ults. [Automated mess age] The system Bl[employer] generated this result transmitted ref erence range: <=18. Th e reference range was not used to int erpret this result as normal/abnormal . Lab Interpretation Abnormal (test code = 37001-9) [facility] AtlantaTrop[facility] T (In-House)2021-10-15 18:48:52 Test Item Value Reference Range Interpretation Comments Troponin T (test code = 23 ng/L See_Comment H < 19 ng/L Suggest 78163-6) retest at 3 to 6 hours later [...] res ults. [Automated mess age] The system Bl[employer] generated this result transmitted ref erence range: <=18. Th e reference range was not used to int erpret this result as normal/abnormal . Lab Interpretation Abnormal (test code = 47668-4) [facility] AtlantaTrop[facility] T (In-House)2021-10-15 18:48:52 Test Item Value Reference Range Interpretation Comments Troponin T (test code = 23 ng/L See_Comment H < 19 ng/L Suggest 18900-1) retest at 3 to 6 hours later [...] res ults. [Automated mess age] The system Blurb generated this result transmitted ref erence range: <=18. Th e reference range was not used to int erpret this result as normal/abnormal . Lab Interpretation Abnormal (test code = 60767-8) [facility] Atlanta[facility] (In-House)2021-10-15 18:48:52 Test Item Value Reference Range Interpretation Comments Troponin T (test code = 23 ng/L See_Comment H < 19 ng/L Suggest 08645-5) retest at 3 to 6 hours later [...] res ults. [Automated mess age] The system Bl[employer] generated this result transmitted ref erence range: <=18. Th e reference range was not used to int erpret this result as normal/abnormal . Lab Interpretation Abnormal (test code = 81581-5) [facility] AtlantaLDH2022-04-18 16:36:02 Test Item Value Reference Range Interpretation Comments LDH (test code = 247 U/L 135-225 H Results gre ater than 66811-4) 1651 U/L may no t be reliable due to matrix effect w ith extended diluti on as it exceeds the category specialist's recommended ching it. Caution should be exercised when interpreting nunez ch values and done in conjunction [facility] [place] clinical contex t. Lab Interpretation (test Abnormal code = 03723-9) [facility]02 Test Item Value Reference Range Interpretation Comments LDH (test code = 247 U/L 135-225 H Results gre ater than 57386-6) 1651 U/L may no t be reliable due to matrix effect w ith extended diluti on as it exceeds the category specialist's recommended ching it. Caution should be exercised when interpreting nunez ch values and done in conjunction [facility] [place] clinical [employer] t. Lab Interpretation (test Abnormal code = 46754-9) [facility] 16:36:02 Test Item Value Reference Range Interpretation Comments LDH (test code = 247 U/L 135-225 H Results gre ater than 42029-3) 1651 U/L may no t be reliable due to matrix effect w ith extended diluti on as it exceeds the category specialist's recommended ching it. Caution should be exercised when interpreting nunez ch values and done in conjunction [facility] [place] clinical contex t. Lab Interpretation (test Abnormal code = 88285-5) [facility] 16:36:02 Test Item Value Reference Range Interpretation Comments LDH (test code = 247 U/L 135-225 H Results gre ater than 87703-6) 1651 U/L may no t be reliable due to matrix effect w ith extended diluti on as it exceeds the category specialist's recommended ching it. Caution should be exercised when interpreting nunez ch values and done in conjunction [facility] [place] clinical contex t. Lab Interpretation (test Abnormal code = 68302-7) [facility] 16:36:02 Test Item Value Reference Range Interpretation Comments LDH (test code = 247 U/L 135-225 H Results gre ater than 95810-7) 1651 U/L may no t be reliable due to matrix effect w ith extended diluti on as it exceeds the category specialist's recommended ching it. Caution should be exercised when interpreting nunez ch values and done in conjunction [facility] [place] clinical contex t. Lab Interpretation (test Abnormal code = 12266-9) [facility]21-[facility]-15 16:31:03 Test Item Value Reference Range Interpretation Comments NT ProBNP (test code = 13886-9) 137 pg/mL <=125 H Lab Interpretation (test code = Abnormal 80087-8) [facility]2021-10-15 16:31:03 Test Item Value Reference Range Interpretation Comments NT ProBNP (test code = 137 pg/mL See_Comment H [Aut omated message] 33216-1) The system Blurb generated this result transmit lakhwinder reference range : <=125. The refe rence range was not u sed to interpret th is result as normal/abnormal . Lab Interpretation (test Abnormal code = 91164-9) [facility]21-10-15 16:31:03 Test Item Value Reference Range Interpretation Comments NT ProBNP (test code = 137 pg/mL See_Comment H [Aut omated message] 71148-7) The system Blurb generated this result transmit lakhwinder reference range : <=125. The refe rence range was not u sed to interpret th is result as normal/abnormal . Lab Interpretation (test Abnormal code = 51080-8) [facility]21-10-15 16:31:03 Test Item Value Reference Range Interpretation Comments NT ProBNP (test code = 137 pg/mL See_Comment H [Aut omated message] 35043-5) The system Blurb generated this result transmit lakhwinder reference range : <=125. The refe rence range was not u sed to interpret th is result as normal/abnormal . Lab Interpretation (test Abnormal code = 72905-3) [facility]2021-10-15 16:31:03 Test Item Value Reference Range Interpretation Comments NT ProBNP (test code = 137 pg/mL See_Comment H [Aut omated message] 91318-7) The system Blurb generated this result transmit lakhwinder reference range : <=125. The refe rence range was not u sed to interpret th is result as normal/abnormal . Lab Interpretation (test Abnormal code = 82464-2) [facility] [id number] 16:31:01 Test Item Value Reference Range Interpretation Comments CK (test code = 2157-6) 48 U/L 39-308 [facility] [id number] 16:31:01 Test Item Value Reference Range Interpretation Comments CK (test code = 2157-6) 48 U/L 39-308 [facility] [id number] 16:31:01 Test Item Value Reference Range Interpretation Comments CK (test code = 2157-6) 48 U/L 39-308 [facility] [id number] 16:31:01 Test Item Value Reference Range Interpretation Comments CK (test code = 2157-6) 48 U/L 39-308 [facility] [id number] 16:31:01 Test Item Value Reference Range Interpretation Comments CK (test code = 2157-6) 48 U/L 39-308 [facility] 16:31:00 Test Item Value Reference Range Interpretation Comments CK MB (test code = 29754-8) 2.2 ng/mL <=10.4 [facility] 16:31:00 Test Item Value Reference Range Interpretation Comments CK MB (test code = 2.2 ng/mL See_Comment [Automat ed message] The 70522-6) system which ge nerated this result tra nsmitted reference range : <=10.4. The reference r jose was not used to int erpret this result as normal/abnormal . [facility]2022-04-18 16:31:00 Test Item Value Reference Range Interpretation Comments CK MB (test code = 2.2 ng/mL See_Comment [Automat ed message] The 76895-8) system which ge nerated this result tra nsmitted reference range : <=10.4. The reference r jose was not used to int erpret this result as normal/abnormal . [facility]2022-04-18 16:31:00 Test Item Value Reference Range Interpretation Comments CK MB (test code = 2.2 ng/mL See_Comment [Automat ed message] The 38194-1) system which ge nerated this result tra nsmitted reference range : <=10.4. The reference r jose was not used to int erpret this result as normal/abnormal . [facility]2022-04-18 16:31:00 Test Item Value Reference Range Interpretation Comments CK MB (test code = 2.2 ng/mL See_Comment [Automat ed message] The 43338-2) system which ge nerated this result tra nsmitted reference range : <=10.4. The reference r jose was not used to int erpret this result as normal/abnormal . [facility] ([facility]CoV-2)[id number]-[id number] 16:04:24 Test Item Value Reference Range Interpretation Comments COVID19 Not Detected Not Detected (SARS-CoV-2) (test code = 99939-6) COVID19 SARS Inpatient Indication (test Admission code = 25210) Covid 19 Comment See Note The kacy S ARS-CoV-2 (test code = [place] [address]) use on the xenia s [employer] [...] sheet for patie nts provided by the category specialist ([employer]) can be rev iewed at: https://www.fda .gov/m edia/565077/kunal nload. A fact sheet fo r Health Care pro viders is provided by the category specialist ([employer]) and can be reviewed at: https://www.fda .gov/m edia/321607/kunal nload Results must be interpreted wit hin [...] high-comple xity tests. The Microbiology Laboratory at [facility], CLIA Accreditation #[id number] and CAP Accreditation #[id number], verif ied the performance characteristics of this assay. Int ernal controls are us ed to monitor all sta ges of the test proces s. [facility] ElbertCOVID-19 (SARS-CoV-2)Mekqjdjurect-[id number] 16:04:24 Test Item Value Reference Range Interpretation Comments COVID19 Not Detected Not Detected (SARS-CoV-2) (test code = 27151-4) COVID19 SARS Inpatient Indication (test Admission code = 25108) Covid 19 Comment See Note The kacy S ARS-CoV-2 (test code = [place] [address]) use on the xenia s [employer] [...] sheet for patie nts provided by the category specialist ([employer]) can be rev iewed at: https://www.fda .gov/m edia/741226/kunal nload. A fact sheet fo r Health Care pro viders is provided by the category specialist ([employer]) and can be reviewed at: https://www.fda .gov/m edia/841203/kunal nload Results must be interpreted wit hin [...] high-comple xity tests. The Microbiology Laboratory at [facility], CLIA Accreditation #[id number] and CAP Accreditation #[id number], verif ied the performance characteristics of this assay. Int ernal controls are us ed to monitor all sta ges of the test proces s. [facility])Ynyozqikriao-[id number] 16:04:24 Test Item Value Reference Range Interpretation Comments COVID19 Not Detected Not Detected (SARS-CoV-2) (test code = 47556-2) COVID19 SARS Inpatient Indication (test Admission code = 44185) Covid 19 Comment See Note The kacy S ARS-CoV-2 (test code = [place] [address]) use on the xenia s [employer] [...] sheet for patie nts provided by the category specialist ([employer]) can be rev iewed at: https://www.fda .gov/ edia/467794/kunal nload. A fact sheet fo r Health Care pro viders is provided by the category specialist ([employer]) and can be reviewed at: https://www.fda .gov/m edia/288271/kunal nload Results must be interpreted wit hin [...] high-comple xity tests. The Microbiology Laboratory at [facility], CLIA Accreditation #[id number] and CAP Accreditation #[id number], verif ied the performance characteristics of this assay. Int ernal controls are us ed to monitor all sta ges of the test proces s. [facility] ElbertCOVID-19 (SARS-CoV-2)[id number]-[id number] 16:04:24 Test Item Value Reference Range Interpretation Comments COVID19 Not Detected Not Detected (SARS-CoV-2) (test code = 38146-8) COVID19 SARS Inpatient Indication (test Admission code = 86214) Covid 19 Comment See Note The kacy S ARS-CoV-2 (test code = [place] [address]) use on the xenia s [employer] [...] sheet for patie nts provided by the category specialist (R [employer]) can be rev iewed at: https://www.fda .gov/m edia/220574/kunal nload. A fact sheet fo r Health Care pro viders is provided by the category specialist ([employer]) and can be reviewed at: https://www.fda .gov/m edia/348062/kunal nload Results must be interpreted wit hin [...] high-comple xity tests. The Microbiology Laboratory at [facility], CLIA Accreditation #[id number] and CAP Accreditation #[id number], verif ied the performance characteristics of this assay. Int ernal controls are us ed to monitor all sta ges of the test proces s. [facility] ElbertCOVID-19 (SARS-CoV-2)[id number]-[id number] 16:04:24 Test Item Value Reference Range Interpretation Comments COVID19 Not Detected Not Detected (SARS-CoV-2) (test code = 80316-4) COVID19 SARS Inpatient Indication (test Admission code = 00070) Covid 19 Comment See Note The kacy S ARS-CoV-2 (test code = [place] [address]) use on the xenia s [employer] System [...] sheet for patie nts provided by the category specialist ([employer]) can be rev iewed at: https://www.fda .gov/m edia/333146/kunal nload. A fact sheet fo Health Care pro viders is provided by the category specialist (R [employer]) and can be reviewed at: https://www.fda .gov/m edia/602687/kunal nload Results must be interpreted wit hin [...] Th is assay has been authorized by [facility] for use only un areli Emergency Use Authorization ( EUA) in laboratories that have been CLIA-certified to perform moderate-comple xity and high-comple xity tests. The Microbiology Laboratory at [facility], CLIA Accreditation #[id number] and CAP Accreditation #[id number], verif ied the performance characteristics of this assay. Int ernal controls are us ed to monitor all sta ges of the test proces s. [facility] 15:47:24 Test Item Value Reference Range Interpretation Comments aPTT (test code = 29.9 See_Comment [Automate d message] The 12935-4) system which ge nerated this result transmit lakhwinder reference range : 24.7 - 36.8 second(s). The reference range was not used to interpr et this result as paras l/abnormal. [facility] 15:47:24 Test Item Value Reference Range Interpretation Comments aPTT (test code = 29.9 See_Comment [Automate d message] The 85439-1) system which ge nerated this result transmit lakhwinder reference range : 24.7 - 36.8 second(s). The reference range was not used to interpr et this result as paras l/abnormal. [facility] 15:47:24 Test Item Value Reference Range Interpretation Comments aPTT (test code = 29.9 See_Comment [Automate d message] The 17447-0) system which ge nerated this result transmit lakhwinder reference range : 24.7 - 36.8 second(s). The reference range was not used to interpr et this result as paras l/abnormal. [facility] 15:47:24 Test Item Value Reference Range Interpretation Comments aPTT (test code = 29.9 See_Comment [Automate d message] The 73309-5) system which ge nerated this result transmit lakhwinder reference range : 24.7 - 36.8 second(s). The reference range was not used to interpr et this result as paras l/abnormal. [facility] 15:47:24 Test Item Value Reference Range Interpretation Comments aPTT (test code = 29.9 See_Comment [Automate d message] The 08420-8) system which ge nerated this result transmit lakhwinder reference range : 24.7 - 36.8 second(s). The reference range was not used to interpr et this result as paras l/abnormal. [facility] with [id number] 15:47:23 Test Item Value Reference Range Interpretation Comments PT (test code = 5902-2) 13.5 See_Comment [Au tomated message] The system Blurb generated this result transmitted ref erence range: 11.5 - 1 3.9 second(s). The reference range was not used to int erpret this result as normal/abnormal . INR (test code = 6301-6) 1.11 0.90-1.10 H Lab Interpretation (test Abnormal code = 64936-9) [facility] with [id number] 15:47:23 Test Item Value Reference Range Interpretation Comments PT (test code = 5902-2) 13.5 See_Comment [Au tomated message] The system Blurb generated this result transmitted ref erence range: 11.5 - 1 3.9 second(s). The reference range was not used to int erpret this result as normal/abnormal . INR (test code = 6301-6) 1.11 0.90-1.10 H Lab Interpretation (test Abnormal code = 88964-2) [facility] with [id number] 15:47:23 Test Item Value Reference Range Interpretation Comments PT (test code = 5902-2) 13.5 See_Comment [Au tomated message] The system Blurb generated this result transmitted ref erence range: 11.5 - 1 3.9 second(s). The reference range was not used to int erpret this result as normal/abnormal . INR (test code = 6301-6) 1.11 0.90-1.10 H Lab Interpretation (test Abnormal code = 96168-3) [facility] with [id number] 15:47:23 Test Item Value Reference Range Interpretation Comments PT (test code = 5902-2) 13.5 See_Comment [Au tomated message] The system Blurb generated this result transmitted ref erence range: 11.5 - 1 3.9 second(s). The reference range was not used to int erpret this result as normal/abnormal . INR (test code = 6301-6) 1.11 0.90-1.10 H Lab Interpretation (test Abnormal code = 42811-0) [facility] with [id number] 15:47:23 Test Item Value Reference Range Interpretation Comments PT (test code = 5902-2) 13.5 See_Comment [Au tomated message] The system Blurb generated this result transmitted ref erence range: 11.5 - 1 3.9 second(s). The reference range was not used to int erpret this result as normal/abnormal . INR (test code = 6301-6) 1.11 0.90-1.10 H Lab Interpretation (test Abnormal code = 61600-5) [facility]-19, Nasopharyngeal [id number] 01:19:11 Test Item Value Reference Range Interpretation Comments Adenovirus (test code = Not Detected Not Detected 8195) Coronavirus 229E (test Not Detected Not Detected code = 5349) Coronavirus HKU1 (test Detected Not Detected A code = 5350) Coronavirus NL63 (test Not Detected Not Detected code = 5351) Coronavirus OC43 (test Not Detected Not Detected code = 5352) COVID19 (SARS-CoV-2) Not Detected Not Detected (test code = 22539-9) Human Metapneumovirus Not Detected Not Detected (test [...] Detected Not Detected Parapertussis (test code = 37636) Bordetella pertussis Not Detected Not Detected (test [...] including SARS-CoV-2, from a single nasopharyngeal swab (DEHAIRER) specimen obtained from individuals suspected of respiratory [...] that may not be detected by an DEHAIRER specimen. Internal controls are used to monitor [...] and high-complexity tests. The Microbiology Laboratory at [facility], CLIA Accreditation #[id number] and CAP Accreditation #[id number], verified the performance characteristics of this assay. [facility] at [facility] performs the assay using the [employer]fm System. Lab Interpretation Abnormal (test code = 80422-0) [facility] COVID-19, Nasopharyngeal [id number] 01:19:11 Test Item Value Reference Range Interpretation [...] Not Detected Not Detected (test code = 96814-0) Human Metapneumovirus Not Detected Not Detected (test [...] Detected Not Detected Parapertussis (test code = 91616) Bordetella pertussis Not Detected Not Detected (test [...] including SARS-CoV-2, from a single nasopharyngeal swab (DEHAIRER) specimen obtained from individuals suspected of respiratory [...] that may not be detected by an DEHAIRER specimen. Internal controls are used to monitor [...] and high-complexity tests. The Microbiology Laboratory at [facility], CLIA Accreditation #[id number] and CAP Accreditation #[id number], verified the performance characteristics of this assay. [facility] at [facility] performs the assay using the [employer] System. Lab Interpretation Abnormal (test code = 89258-3) [facility] COVID-[facility], Nasopharyngeal [id number] 01:19:11 Test Item Value Reference Range Interpretation Comments Adenovirus (test code = Not Detected Not Detected 4641) Coronavirus 229E (test Not Detected Not Detected code = 5349) Coronavirus HKU1 (test Detected Not Detected A code = 5350) Coronavirus NL63 (test Not Detected Not Detected code = 5351) Coronavirus OC43 (test Not Detected Not Detected code = 5352) COVID19 (SARS-CoV-2) Not Detected Not Detected (test code = 02934-7) Human Metapneumovirus Not Detected Not Detected (test [...] Detected Not Detected Parapertussis (test code = 52790) Bordetella pertussis Not Detected Not Detected (test code = 4854) Chlamydiophila Not Detected Not Detected pneumoniae (test code = 5139) Mycoplasma pneumoniae Not Detected Not Detected (test code = 6203) PAIGE (test code = PAIGE) The Traffioe RP2.1 is a real-time, nested multiplexed polymerase chain reaction test designed to simultaneously identify nucleic acids from 22 different viruses and bacteria associated with respiratory tract infection, including SARS-CoV-2, from a single nasopharyngeal swab (DEHAIRER) specimen obtained from individuals suspected of respiratory [...] that may not be detected by an DEHAIRER specimen. Internal controls are used to monitor [...] and high-complexity tests. The Microbiology Laboratory at [facility], CLIA Accreditation #[id number] and CAP Accreditation #[id number], verified the performance characteristics of this assay. Micro[facility] Laboratory at [facility] performs the assay using the [employer].fm System. Lab Interpretation Abnormal (test code = 60690-4) [facility]bertRespiratory Viral Panel + COVID-19, Nasopharyngeal [id number] 01:19:11 Test Item Value Reference Range Interpretation Comments Adenovirus (test code = Not Detected Not Detected 4747) Coronavirus 229E (test Not Detected Not Detected code = 5349) Coronavirus HKU1 (test Detected Not Detected A code = 5350) Coronavirus NL63 (test Not Detected Not Detected code = 5351) Coronavirus OC43 (test Not Detected Not Detected code = 5352) COVID19 (SARS-CoV-2) Not Detected Not Detected (test code = 26419-3) Human Metapneumovirus Not Detected Not Detected (test code = 6401) Human Not Detected Not Detected Rhinovirus/Enterovirus (test code = 7212) Influenza A (test code Not Detected Not Detected = 5618) Influenza A H1 (test Not Detected Not Detected code = 5619) Influenza A H1 2008 Not Detected Not Detected (test code = [...] Detected Not Detected Parapertussis (test code = 06074) Bordetella pertussis Not Detected Not Detected (test [...] including SARS-CoV-2, from a single nasopharyngeal swab (DEHAIRER) specimen obtained from individuals suspected of respiratory [...] that may not be detected by an DEHAIRER specimen. Internal controls are used to monitor [...] and high-complexity tests. The Micro[facility] Laboratory at [facility], CLIA Accreditation #[id number] and CAP Accreditation #[id number], verified the performance characteristics of this assay. [facility] at [facility] performs the assay using the [employer] System. Lab Interpretation Abnormal (test code = 89475-1) [facility], Nasopharyngeal [id number] 01:19:11 Test Item Value Reference Range Interpretation [...] Not Detected Not Detected (test code = 56122-0) Human Metapneumovirus Not Detected Not Detected (test [...] Detected Not Detected Parapertussis (test code = 41426) Bordetella pertussis Not Detected Not Detected (test [...] including SARS-CoV-2, from a single nasopharyngeal swab (DEHAIRER) specimen obtained from individuals suspected of respiratory [...] that may not be detected by an DEHAIRER specimen. Internal controls are used to monitor [...] and high-complexity tests. The Microbiology Laboratory at [facility], CLIA Accreditation #[id number] and CAP Accreditation #[id number], verified the performance characteristics of this assay. [facility] Laboratory at [facility] performs the assay using the [employer]fm System. Lab Interpretation Abnormal (test code = 84687-3) [facility] [id number] 13:32:30 Test Item Value Reference Range Interpretation Comments POC Crea (test 0.6 mg/dL 0.6-1.3 Medications, code = 10622-7) especially h ydroxyurea or supplements, such as [...] Normal eGF R >= 60 code = 39594-6) mL/min/1.73 m2 The eGFR is calcula lakhwinder [...] Normal eG FR >= 60 code = 54831-4) mL/min/1.73 m2 The eGFR is calcula lakhwinder [...] Yes (test code = 6672) Performing Lab [facility] (test code = [facility] erssolange [address]) Clinical Lab, [address] [place] [address], [place], [place] [address]; [employer] Cake Decorator: Aletha Arciniega MD [facility] MD [place] [facility] [id number] 13:32:30 Test Item Value Reference Range Interpretation Comments POC Crea (test 0.6 mg/dL 0.6-1.3 Medications, code = 46226-7) especially h ydroxyurea or supplements, such as [...] Normal eGF R >= 60 code = 95135-7) mL/min/1.73 m2 The eGFR is calcula lakhwinder using the CKD-E PI equation. The e GFR declines with a ge. eGFR <60 mL/min /1.73 m2 is considere d as "decreased" Thi s equation should only be used for pat ients 18 and older. According to e National Kidney Foundation's dney Disease Outcome [...] with mild decre ase in GFR 60-893a Mi ld to moderate decrea se in GFR 45-593b [...] Normal eG FR >= 60 code = 86520-7) mL/min/1.73 m2 The eGFR is calcula lakhwinder using the CKD-E PI equation. The e GFR declines with a ge. eGFR <60 mL/min /1.73 m2 is considere d as "decreased" Thi s equation should only be used for pat ients 18 and older. According to e National Kidney [employer]'s dney Disease Outcome [...] Yes (test code = 6672) Performing Lab [facility] (test code = [facility] [address]) Clinical Lab, [address] [place], [place] [address]; [employer] Decorator: Aletha Arciniega MD [facility] [id number] 13:32:30 Test Item Value Reference Range Interpretation Comments POC Crea (test 0.6 mg/dL 0.6-1.3 Medications, code = 47862-8) especially h ydroxyurea or supplements, such as [...] Normal eGF R >= 60 code = 56944-1) mL/min/1.73 m2 The eGFR is calcula lakhwinder [...] Normal eG FR >= 60 code = 02004-4) mL/min/1.73 m2 The eGFR is calcula lakhwinder [...] to severe decre ase in GFR 30-444 Sev ere decrease in GFR 15-295 Kidney failure <15 (or dialysis) [Auto mated message] The sy stem which generated this result transmit lakhwinder reference range : >=60 mL/min/1.73 m2. The reference range was not used to int erpret this result as normal/abnormal . POC Clean Dev Yes (test code = 6672) Performing Lab [facility] [place] [facility] (test code = [facility] [address]) Clinical Lab, [address] [facility] [place], [place] [address]; [employer] Decorator: Aletha Arciniega MD [facility] [id number] 13:32:30 Test Item Value Reference Range Interpretation Comments POC Crea (test 0.6 mg/dL 0.6-1.3 Medications, code = 54052-9) especially h ydroxyurea or supplements, such as [...] Normal eGF R >= 60 code = 46309-4) mL/min/1.73 m2 The eGFR is calcula lakhwinder [...] Normal eG FR >= 60 code = 57772-2) mL/min/1.73 m2 The eGFR is calcula lakhwinder [...] Yes (test code = 6672) Performing Lab [facility] (test code = [facility] [address]) Clinical Lab, [address] [facility], [place], [place] [address]; [employer] Decorator: Aletha Arciniega MD [facility] [place]
[2022-08-29] MEDS ORDERED: METHYLPREDNISOLONE 125 MG INJ ONE (16:49)
[2022-08-29] MEDS ORDERED: LEVALBUTEROL 1.25 MG/3 ML NEB ONE (16:49)
[2022-08-29] MEDS ORDERED: NA CHLORIDE 0.9% 500 ML ONE (16:49)
[2022-08-29 17:02] LABS: Absolute Lymphocytes (CBC) 1.2 K/uL (0.7-4.9); Hematocrit 41.4 % (39.6-49.0); Lymphocytes % 20.2 % (15.3-44.8); MCV 92.8 fL (80-100); MPV 7.7 fL (7.6-11.3); RBC Red Blood Cell Count 4.46 M/uL (4.33-5.43)
[2022-08-29 17:07] LABS: Protime INR 1.08
[2022-08-29 17:40] LABS: SARS-COV-2 RT PCR NEGATIVE (NEGATIVE)
--- NOTE | 2022-08-29 17:56 | RAD REPORT ---
[facility] 4[facility]41 pm CLINICAL HISTORY: Cough COMPARISON: Chest Single View dated 04/23/2022; Chest Single View dated 04/01/2022; Chest Single View dated 03/30/2022; Chest Single View dated 03/26/2022 TECHNIQUE: Portable AP view of the chest. FINDINGS: Chronic interstitial thickening again noted. Partial improvement of retrocardiac airspace opacification since March 2022. Peripheral right upper lobe opacity is stable. No pneumothorax or e ffusion. The cardiomediastinal contours are unremarkable. IMPRESSION: Partial improvement of aeration at the left base. Otherwise stable findings. No other ac [place] abnormalities.
[2022-08-29 18:20] LABS: Bilirubin Total 0.6 mg/dL (0.2-1.0); Protein, Total 6.5 g/dL (6.4-8.2)
--- NOTE | 2022-08-29 18:56 | RAD REPORT ---
EXAM DESCRIPTION: CT - Chest For Pe Angio - 08/29/2022 6:38 pm CLINICAL HISTORY: Dyspnea. Shortness of breath. Dizziness COMPARISON: 04/24/2022 TECHNIQUE: Dynamically enhanced axial 3 mm thick images of the chest were obtained during administra tion of 81 mL Isovue 370 IV contrast. Coronal and oblique reconstruction images were generated and re viewed. Exam utilizes a protocol for optimal evaluation of pulmonary arterial tree. All CT scans are performed using dose optimization technique as appropriate and may include automated exposure control or mA/KV adjustment according to patient size. FINDINGS: Pulmonary arteries are normal in caliber. Occlusive filling defects are seen along right l ower lobe second order branches. Crescentic marginal filling defect along the right upper lobe first order branch, could relate to an organizing embolus. Subocclusive left lower lobe third order branch emboli. No emboli or other suspicious finding. No acute or significant aorta findings. Ascending thoracic aorta measures 3.6 centimeter in caliber, normal. Peripheral right upper lobe opacity with central cavitation, and mild bronchiectasis along the leadin g bronchitis. Background centrilobular emphysematous changes, advanced, stable in pattern, with right apical scarring. Partial improvement of numerous bilateral airspace opacities seen on the prior exam , with residual nodular right lower lobe peribronchovascular opacities, irregular in appearance, the largest present posterolaterally, measuring 8 millimeter, with a more medial and anterior 7 millimete r peribronchovascular nodule, both present on axial image 64/169. Subpleural left costophrenic angle scarring versus nodularity, and multifocal left lingular scarring again noted. No pleural thickening or pleural effusion. No pneumothorax. No abnormal mediastinal or hilar masses or lymphadenopathy seen. No chest wall mass or abnormal axill iary lymphadenopathy. IMPRESSION: Right lower lobe occlusive second order branch, and left lower lobe subocclusive third o rder branch pulmonary emboli. Right upper lobe marginal crescentic filling defect along the first ord er branch, likely relates to a remote/organizing embolus. Partial improvement of irregular nodular opacities bilaterally. Two residual right lower lobe nodules the largest measuring 8 millimeter remain, and deserve short-term follow-up CT evaluation to ensure stability or resolution in six-months. Other stable findings, as above. The findings were communicated to Elmira Santacruz on 08/29/2022 at 18:51 hours.
--- NOTE | 2022-08-29 19:02 | ER ---
Nurse's Notes [facility] Name: Chato Moreno IV Age: 66 yrs Sex: Male : 1955 Arrival Date: 08/29/2022 Time: 16:02 Bed 7 Private MD: Diagnosis: Pulmonary embolism without acute cor pulmonale;COPD/ Chronic obstructive pulmonary disease, unspecified Presentation: 08/29 16:03 Chief complaint: EMS states: SOB and dizziness x 2-3 days, SOB worse today. BP 128/88, hb HR90s, SpO2 98% on 2L home O2. Coronavirus screen: Client presents with at least one sign or symptom that may indicate coronavirus-19. Standard/surgical mask placed on the client. Provider contacted for isolation considerations. Ebola Screen: No symptoms or risks identified at this time. Initial Sepsis Screen: Does the patient meet any 2 criteria? No. Patient's initial sepsis screen is negative. Does the patient have a suspected source of infection? No. Patient's initial sepsis screen is negative. Risk Assessment: Do you want to hurt yourself or someone else? Patient reports no desire to harm self or others. Onset of symptoms was August 27, 2022. 16:03 Method Of Arrival: EMS: [facility] hb 16:03 Acuity: STEWART 3 hb Historical: - Allergies: 16:05 No Known Allergies; hb - PMHx: 16:05 COPD; Emphysema; Lung Cancer; Pneumonia; hb - Immunization history:: Adult Immunizations up to date. - Family history:: not pertinent. - Social history:: Smoking status: . - Hospitalizations: : No recent hospitalization is reported. Screenin:10 [facility] ED Fall Risk Assessment (Adult) Score/Fall Risk Level 0 - 2 = Low Risk hb Oriented to surroundings, Maintained a safe environment, Educated pt \T\ family on fall prevention, incl call for assistance when getting out of bed. Abuse screen: Denies threats or abuse. Denies injuries from another. Nutritional screening: No deficits noted. Tuberculosis screening: No symptoms or risk factors identified. Assessment: 16:10 General: Appears in no apparent distress. Behavior is calm, cooperative. Pain: Pain hb currently is 5 out of 10 on a pain scale. Neuro: Level of Consciousness is awake, alert, obeys commands, Oriented to person, place, time, situation. Cardiovascular: Patient's skin is warm and dry. Respiratory: Respiratory effort is even, unlabored, Respiratory pattern is regular, symmetrical. GI: No signs and/or symptoms were reported involving the gastrointestinal system. : No signs and/or symptoms were reported regarding the genitourinary system. EENT: No signs and/or symptoms were reported regarding the EENT system. Derm: Skin is pink, warm \T\ dry. Musculoskeletal: No signs and/or symptoms reported regarding the musculoskeletal system. 17:58 Reassessment: Patient appears in no apparent distress at this time. Patient and/or hb family updated on plan of care and expected duration. Pain level reassessed. Patient is alert, oriented x 3, equal unlabored respirations, skin warm/dry/pink. 19:24 General: Appears in no apparent distress. Behavior is agitated. Neuro: Level of kd3 Consciousness is awake, alert, obeys commands, Oriented to person, place, time, situation. Respiratory: Respiratory effort is even, unlabored, Respiratory pattern is regular, symmetrical. Vital Signs: 16:03 BP 126 / 85; Pulse 100; Resp 17; Temp 97.6(O); Pulse Ox 98% on 2 lpm NC; Weight 46.72 hb kg; Height 5 ft. 7 in. (170.18 cm); Pain 5/10; 17:00 BP 126 / 66; Pulse 74; Resp 18; Pulse Ox 97% on 2 lpm NC; hb 17:59 BP 136 / 91; Pulse 87; Resp 15; Pulse Ox 100% on 2 lpm NC; hb 19:26 BP 110 / 73; Pulse 95; Resp 19; Pulse Ox 100% on 2 lpm NC; kd3 20:58 BP 107 / 71; Pulse 88; Resp 19; Pulse Ox 100% on R/A; kd3 16:03 Body Mass Index 16.13 (46.72 kg, 170.18 cm) ED Course: 16:02 Patient arrived in ED. rn 16:02 Shashank Metz MD is Attending Physician. rn 16:03 Anais Lozano, ELLA is Primary Nurse. hb 16:05 Triage completed. hb 16:05 Arm band placed on. hb 16:10 Patient has correct armband on for positive identification. hb 16:43 Chest Single View XRAY In Process Unspecified. EDMS 16:54 Inserted saline lock: 20 gauge in right forearm, using aseptic technique. Blood hb collected. 19:01 Favian Alexandre MD is Hospitalizing Provider. rn 19:13 Jordy Metz MD is Hospitalizing Provider. la1 19:25 No provider procedures requiring assistance completed. Patient admitted, IV remains in ph place. Administered Medications: 16:53 Drug: NS 0.9% 500 ml Route: IV; Rate: bolus; Site: right forearm; hb 19:26 Follow up: IV Status: Completed infusion kd3 16:53 Drug: SOLU-Medrol (methylPrednisoLONE) 125 mg Route: IVP; Site: right forearm; hb 19:26 Follow up: Response: No adverse reaction kd3 16:53 Drug: Xopenex (levalbuterol) (3) 1.25 mg Route: Inhalation; hb 19:24 Drug: Lovenox (enoxaparin) 1 mg/kg Route: Sub-Q; Site: abdomen; kd3 19:55 Follow up: Response: No adverse reaction kd3 19:55 Drug: NS 0.9% 1000 ml Route: IV; Rate: 75 ml/hr; Site: left forearm; kd3 20:59 Follow up: IV Status: Infusion continued kd3 Medication: 16:10 VIS not applicable for this client. hb Outcome: 19:01 Decision to Hospitalize by Provider. rn 21:27 Patient left the ED. as6 21:27 Admitted to Med/surg accompanied by tech, via wheelchair, with oxygen, with chart. as6 21:27 Condition: stable 21:27 Instructed on the need for admit. Signatures: Dispatcher [employer] EDMS Shashank Metz MD MD rn Attema, Lee, NAMED ACCOUNT EXECUTIVE-C NAMED ACCOUNT EXECUTIVE-Cla1 Brisa Romero RN RN ph Baxter, Heather, RN RN hb Slawson, Ashby, RN RN as6 Alysha Jj RN RN kd3
--- NOTE | 2022-08-29 19:02 | EDPHYS ---
Physician Documentation [facility] Name: Chato Moreno IV Age: 66 yrs Sex: Male : 1955 Arrival Date: 08/29/2022 Time: 16:02 Bed 7 Private MD: ED Physician Shashank Metz HPI: 08/29 16:19 This 66 yrs old Male presents to ER via EMS with complaints of Shortness Of Breath. rn 16:19 The patient has shortness of breath at rest, with light activity. rn 16:19 Onset: The symptoms/episode began/occurred 3 day(s) ago. Duration: The symptoms are rn continuous. The patient's shortness of breath is aggravated by exertion, light activity, is alleviated by nothing. Associated signs and symptoms: Pertinent positives: productive cough, Pertinent negatives: fever, hemoptysis. Severity of symptoms: At their worst the symptoms were moderate in the emergency department the symptoms are unchanged. The patient has experienced similar episodes in the past. The patient has not recently seen a physician. Pt reports cough and sob that began 2-3 days ago, no fever, + productive cough, worse with exertion. Hx of lung cancer, but states cancer free for 1 year. + COPD. NO hemoptysis. . Historical: - Allergies: 16:05 No Known Allergies; hb - PMHx: 16:05 COPD; Emphysema; Lung Cancer; Pneumonia; hb - Immunization history:: Adult Immunizations up to date. - Family history:: not pertinent. - Social history:: Smoking status: . - Hospitalizations: : No recent hospitalization is reported. ROS: 16:19 Constitutional: Negative for fever, chills, and weight loss, ENT: + congestion Neck: rn Negative for injury, pain, and swelling, Cardiovascular: Negative for chest pain, palpitations, and edema, Respiratory: + cough/sob Abdomen/GI: Negative for abdominal pain, nausea, vomiting, diarrhea, and constipation, Back: Negative for injury and pain, MS/Extremity: Negative for injury and deformity, Skin: Negative for injury, rash, and discoloration, Neuro: Negative for headache, numbness, tingling, and seizure. Exam: 16:19 Constitutional: Thin male, with mild tachypnea Head/Face: Normocephalic, atraumatic. 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 No pulse deficits. Respiratory: + mild tachypnea, no retractions, + diminished breath sounds with poor inspiratory airflow Abdomen/GI: soft, non-tender Skin: Warm, dry MS/ Extremity: Pulses equal, no cyanosis Neuro: Awake and alert, GCS 15 16:50 ECG was reviewed by the Attending Physician. rn Vital Signs: 16:03 BP 126 / 85; Pulse 100; Resp 17; Temp 97.6(O); Pulse Ox 98% on 2 lpm NC; Weight 46.72 hb kg; Height 5 ft. 7 in. (170.18 cm); Pain 5/10; 17:00 BP 126 / 66; Pulse 74; Resp 18; Pulse Ox 97% on 2 lpm NC; hb 17:59 BP 136 / 91; Pulse 87; Resp 15; Pulse Ox 100% on 2 lpm NC; hb 19:26 BP 110 / 73; Pulse 95; Resp 19; Pulse Ox 100% on 2 lpm NC; kd3 20:58 BP 107 / 71; Pulse 88; Resp 19; Pulse Ox 100% on R/A; kd3 16:03 Body Mass Index 16.13 (46.72 kg, 170.18 cm) hb MDM: 16:02 Patient medically screened. rn 19:00 Differential diagnosis: Anemia Anxiety Reaction Chronic Obstructive Pulmonary Disease rn Myocardial Infarction pneumonia, Pneumothorax pulmonary edema, Pulmonary Embolism. Data reviewed: vital signs, nurses notes, lab test result(s), EKG, radiologic studies, CT scan, plain films, and as a result, I will admit patient. Consideration of Admission/Observation Patient was admitted/placed on observation. Escalation of care including admission/observation considered. Counseling: I had a detailed discussion with the patient and/or guardian regarding: the historical points, exam findings, and any diagnostic results supporting the discharge/admit diagnosis, lab results, radiology results, the need for further work-up and treatment in the hospital. Response to treatment: the patient's symptoms have mildly improved after treatment, and as a result, I will admit patient. ED course: Pt with bilateral PE, no evidence of cardiogenic involvement, will admit and anticoagulate. . 08/29 16:04 Order name: Blood Culture Adult (2) rn 08/29 16:04 Order name: CBC with Diff; Complete Time: 17:53 rn 08/29 16:04 Order name: CMP; Complete Time: 18:41 rn 08/29 16:04 Order name: Lactate w/ 2H reflex if indic.; Complete Time: 17:53 rn 08/29 16:04 Order name: Protime (+inr); Complete Time: 17:53 rn 08/29 16:04 Order name: Ptt, Activated; Complete Time: 17:53 rn 08/29 16:04 Order name: Chest Single View XRAY; Complete Time: 18:41 rn 08/29 16:04 Order name: EKG; Complete Time: 16:05 rn 08/29 16:04 Order name: Accucheck; Complete Time: 16:51 rn 08/29 16:04 Order name: Cardiac monitoring; Complete Time: 16:51 rn 08/29 16:04 Order name: EKG - Nurse/Tech; Complete Time: 16:50 rn 08/29 16:04 Order name: IV Saline Lock - Large Bore; Complete Time: 16:51 rn 08/29 16:04 Order name: Labs collected and sent; Complete Time: 16:51 rn 08/29 16:04 Order name: O2 Per Protocol; Complete Time: 16:51 rn 08/29 16:04 Order name: O2 Sat Monitoring; Complete Time: 16:51 rn 08/29 16:04 Order name: Vital Signs; Complete Time: 16:51 rn 08/29 16:04 Order name: COVID-19/FLU A+B; Complete Time: 17:53 rn 08/29 16:04 Order name: CT Chest For PE Angio rn 08/29 18:57 Order name: CT; Complete Time: 18:59 EDMS EC:50 Rate is 77 beats/min. Rhythm is regular. QRS [place] is Normal. IN interval is normal. QRS rn interval is normal. QT interval is normal. No Q waves. T waves are Normal. No ST changes noted. Clinical impression: NSR w/ Non-specific ST/T Changes. Interpreted by me. Administered Medications: :53 Drug: NS 0.9% 500 ml Route: IV; Rate: bolus; Site: right forearm; hb 19:26 Follow up: IV Status: Completed infusion kd3 16:53 Drug: SOLU-Medrol (methylPrednisoLONE) 125 mg Route: IVP; Site: right forearm; hb 19:26 Follow up: Response: No adverse reaction kd3 16:53 Drug: Xopenex (levalbuterol) (3) 1.25 mg Route: Inhalation; hb 19:24 Drug: Lovenox (enoxaparin) 1 mg/kg Route: Sub-Q; Site: abdomen; kd3 19:55 Follow up: Response: No adverse reaction kd3 19:55 Drug: NS 0.9% 1000 ml Route: IV; Rate: 75 ml/hr; Site: left forearm; kd3 20:59 Follow up: IV Status: Infusion continued kd3 Disposition: 19:00 Critical Care:. rn Disposition Summary: 08/29/22 19:01 Hospitalization Ordered Hospitalization Status: Inpatient Admission rn Location: Telemetry/MedSurg (Inpatient) rn Condition: Stable rn Problem: new rn Symptoms: have improved rn Bed/Room Type: Standard rn Provider: Jordy Metz(08/29/22 19:13) [place] Room Assignment: [facility](08/29/22 20:24) Diagnosis - Pulmonary embolism without acute cor pulmonale rn - COPD/ Chronic obstructive pulmonary disease, unspecified rn Forms: - Medication Reconciliation Form rn - SBAR form information technology internship time excluding procedures: 19:00 Critical care time: Bedside Care: 35 minutes. Total time: 35 minutes rn Signatures: Dispatcher [employer] EDMS Shashank Metz MD MD rn Attema, Lee, FNP-C DEAN OF INSTRUCTION-ClaHuyen Adam RN RN Anais Odom RN Alysha Warren RN RN kd3 Corrections: (The following items were deleted from the chart) 19:13 19:01 Favian Alexandre rn la1 20:24 19:01 katelynn gooden
[2022-08-29] MEDS ORDERED: ENOXAPARIN 40 MG/0.4 ML SQ ONE (19:24)
[2022-08-29] MEDS ORDERED: NA CHLORIDE 0.9% 1,000 ML ONE (19:52)
--- NOTE | 2022-08-29 20:15 | P.HP ---
Certification for Inpatient Patient admitted to: Observation With expected LOS: <2 Midnights Patient will require the following post-hospital care: None Practitioner: I am a practitioner with admitting privileges, knowledge of patient current condition, hospital course, and medical plan of care. Services: Services provided to patient in accordance with Admission requirements found in Title 42 Section 412.3 of the Code of Federal Regulations Patient History Date of Service: 08/29/22 Reason for admission: Pulmonary embolism History of Present Illness: 66-year-old male with history of COPD on chronic home O2, lung cancer, chronic pain presents to the emergency department for shortness of breath, dyspnea requiring more oxygen than he usually uses. He was evaluated in the emergency department his labs were significant for hypokalemia with a potassium of 3.0 chest x-ray was performed which showed partial improvement of aeration at the left base, otherwise stable findings no other acute abnormalities. CT PE protocol was also performed which revealed right lower lobe occlusive second order branch, and left lower lobe subocclusive third order branch pulmonary emboli. Right upper lobe marginal crescentic filling defect along the first- order branches likely relates to remote/organizing embolus. Partial improvement of irregular nodular opacities bilaterally. 2 residual right lower lobe nodules the largest measuring 8 mm remained, and deserves short-term follow-up CT evaluation to ensure stability or resolution in 6 months. Patient was given subcu Lovenox in ED, ED provider wishes to admit under observation given dyspnea, PE and increased oxygen requirement. Allergies No Known Allergies Allergy (Verified 03/07/22 18:33) Home Medications: Megestrol [Megace*] 40 mg PO BID 03/07/22 Midodrine HCl [Proamatine*] 5 mg PO BID 03/07/22 Quetiapine [Seroquel*] 75 mg PO BEDTIME 03/07/22 Memantine HCl [Namenda*] 10 mg PO BID 04/23/22 Albuterol Neb [Proventil 0.083% Neb Soln] 2.5 mg NEB [id number] PRN #60 amp 04/30/22 Benzonatate [Tessalon Perle*] 100 mg PO TID PRN #30 cap 04/30/22 Ensure Enlive 237 ml PO TID #90 can 04/30/22 Fluconazole [Diflucan] 100 mg PO DAILY #14 tab 04/30/22 Ipratropium Neb [Atrovent*] 0.5 mg NEB [id number] PRN #60 amp 04/30/22 Oxycodone HCl/Acetaminophen [Percocet 5/325 Tab*] 1 tab PO Q6HP PRN #30 tab 04/30/22 predniSONE [Prednisone*] 20 mg PO BID #20 tab 04/30/22 Nystatin 5 ml PO Q8H #500 ml 05/02/22 levoFLOXacin [Levaquin] 750 mg PO DAILY #7 tab 05/02/22 - Past Medical/Surgical History Diabetic: No -: Chronic pain -: Anorexia -: COPDon home O2 -: History of lung cancer, small cell lung cancer with mets -: None Psychosocial/ Personal History: Patient is retired - Family History Sister -: Cancer - Social History Smoking Status: Former smoker Alcohol use: No CD- Drugs: No Caffeine use: No Place of Residence: Home Review of Systems 10-point ROS is otherwise unremarkable Respiratory: Shortness of Breath Physical Examination - Physical Exam General: Alert, In no apparent distress, Oriented x3 HEENT: Atraumatic, PERRLA, Mucous membr. moist/pink, EOMI, Sclerae nonicteric Neck: Supple, 2+ carotid pulse no bruit, No LAD, Without JVD or thyroid abnormality Respiratory: Diminished Cardiovascular: No edema, Regular rate/rhythm, Normal S1 S2 Capillary refill: <2 Seconds Gastrointestinal: Normal bowel sounds, No tenderness Musculoskeletal: No tenderness Integumentary: No rashes Neurological: Normal speech, Normal strength at 5/5 x4 extr, Normal tone, Normal affect - Studies Laboratory Data (last 24 hrs) 08/29/22 17:46: Sodium 138, Potassium 3.0 L, BUN 7, Creatinine 0.48 L, Glucose 131 H, Total Bilirubin 0.6, AST 19, ALT 12 L, Alkaline Phosphatase 104 08/29/22 16:46: PT 11.9, INR 1.08, APTT 32.2 08/29/22 16:46: WBC 5.70, Hgb 13.6, Hct 41.4, Plt Count 190 Assessment and Plan - Plan Assessment: Dyspnea secondary to pulmonary embolism History of lung cancer COPD Chronic pain Plan: Dyspnea secondary to pulmonary embolism Continue therapeutic Lovenox. Pulmonology consult in place. Patient currently on 2 L per nasal cannula, he does have home oxygen at home but does not typically have to wear it all the time, he has been noticing increasing dyspnea over the course of the last 1 week and increasing oxygen requirement. Will obtain daily sats on his home oxygen. History of lung cancer Patient reports he had 1 round of chemotherapy approximate 2 years ago at [facility]. CT shows improvement but there are still residual nodules with recommendation for repeat CT in 6 months. Patient informed, provided radiology results. Counseled on importance of follow-up. COPD As needed nebulizer treatments, continue home medications. Chronic pain Patient is on Suboxone at home, he was counseled on importance of bringing his medication from home and have been verified by the pharmacy so that it can be restarted appropriately. DVT PPX: Therapeutic Lovenox Code status: Full Discharge Plan: Home Plan to discharge in: 24 Hours - Advance Directives Does patient have a Living Will: No Does patient have a Durable POA for Healthcare: No - Code Status/Comfort Care Code Status Assessed: Yes (Full code) Critical Care: No Time Spent Managing Pts Care (In Minutes): 70
[2022-08-29] MEDS ORDERED: ACETAMINOPHEN 500 MG TAB PO PRN (21:09)
[2022-08-29] MEDS ORDERED: ALBUTEROL 2.5 MG/3 ML NEB SOL NEB PRN (21:09)
[2022-08-29] MEDS: NA CHLORIDE 0.9% 1,000 ML IV SCH (21:09)
[2022-08-29] MEDS ORDERED: ONDANSETRON 4 MG/2 ML VIAL IV PRN (21:09)
[2022-08-29 21:49] VITALS: BMI 16.9
[2022-08-29] MEDS: QUETIAPINE 25 MG TAB PO PRN (22:00)
[2022-08-30 06:27] LABS: Absolute Lymphocytes (CBC) 0.6 K/uL (0.7-4.9); Hematocrit 40.9 % (39.6-49.0); Lymphocytes % 16.9 % (15.3-44.8); MCV 93.8 fL (80-100); MPV 7.5 fL (7.6-11.3); RBC Red Blood Cell Count 4.36 M/uL (4.33-5.43)
[2022-08-30 06:45] LABS: Potassium 3.6 mmol/L (3.5-5.1)
[2022-08-30] MEDS: NA CHLORIDE 0.9% 1,000 ML IV SCH ×2 (07:18→10:29)
[2022-08-30] MEDS ORDERED: INFLUENZA VACCINE (for 6+ mo) 0.5 ML DOSE IMVAC ONE (08:00)
[2022-08-30] MEDS ORDERED: NALOXONE SL SCH (09:00)
[2022-08-30] MEDS ORDERED: BUPRENORPHINE SL SCH (09:00)
[2022-08-30] MEDS ORDERED: POTASSIUM CL SA 10 MEQ TAB PO ONE (09:00)
[2022-08-30] MEDS ORDERED: ENOXAPARIN 60 MG/0.6 ML SQ SCH (09:00)
[2022-08-30] MEDS: MEGESTROL 40 MG TAB PO SCH ×2 (09:07→20:52)
[2022-08-30] MEDS: MEMANTINE HCL 10 MG TABLET PO SCH ×2 (09:07→20:52)
[2022-08-30] MEDS: MIDODRINE HCL 5 MG TABLET PO SCH ×2 (09:07→20:53)
--- NOTE | 2022-08-30 10:43 | P.PN ---
Subjective Date of Service: 08/30/22 Chief Complaint: Pulmonary embolism Subjective: Improving (Patient is complaining of some chest discomfort admitted with pulmonary embolism) Review of Systems General: Weakness Respiratory: Shortness of Breath Cardiovascular: Chest Pain Physical Examination - Vital Signs Temperature: 97.6 F Blood Pressure: 113/68 Pulse: 57 Respirations: 17 Pulse Ox (%): 98 - Physical Exam General: Alert, In no apparent distress, Mild distress Respiratory: Clear to auscultation bilaterally Cardiovascular: Normal pulses, Regular rate/rhythm, Abnormal S3 - Studies Laboratory Data (last 24 hrs) 08/29/22 17:46: Sodium 138, Potassium 3.0 L, BUN 7, Creatinine 0.48 L, Glucose 131 H, Total Bilirubin 0.6, AST 19, ALT 12 L, Alkaline Phosphatase 104 08/29/22 16:46: PT 11.9, INR 1.08, APTT 32.2 08/29/22 16:46: WBC 5.70, Hgb 13.6, Hct 41.4, Plt Count 190 Assessment And Plan - Current Problems (Diagnosis) (1) Pulmonary embolism Current Visit: Yes Status: Acute Plan: Patient is 66 years of age admitted with pulmonary embolism of lung cancer undergoing treatment by [facility] vital signs oxygenation stable Patient has a history of COPD has home oxygen also has chronic pain asking for pain medications otherwise stable faxed in the Eliquis to his pharmacy needs to be on lifelong anticoagulation possible discharge tomorrow
[2022-08-30] MEDS: HYDROCODONE/APAP 5/325 MG TAB PO PRN ×2 (11:53→20:50)
--- NOTE | 2022-08-30 14:31 | EKG ---
Test Date: 2022-08-29 Test Time: 16:49:15 Oil Treater: MARIA EUGENIA MEASUREMENT RESULTS: Intervals: Rate: 77 MO: 164 QRSD: 64 QT: 404 QTc: 457 [place]: P: 87 MO: 164 QRS: 30 T: 69 INTERPRETIVE STATEMENTS: Normal sinus rhythm Nonspecific ST abnormality Abnormal ECG Compared to ECG 04/23/2022 11:43:02 ST (T wave) deviation now present Ventricular premature complex(es) no longer present Electronically Signed On 08-30-22 14:29:02 STATISTICAL CLERK ADVERTISING by Larry Aly
[2022-08-30] MEDS: APIXABAN 5 MG TABLET PO SCH (20:52)
[2022-08-30] MEDS: ENSURE ENLIVE 237 ML CAN PO SCH (20:54)
[2022-08-30] MEDS ORDERED: ENSURE ENLIVE 237 ML CAN PO SCH (21:00)
[2022-08-30] MEDS: QUETIAPINE 25 MG TAB PO PRN (21:12)
[2022-08-31] MEDS: HYDROCODONE/APAP 5/325 MG TAB PO PRN ×2 (00:50→09:03)
[2022-08-31 03:11] LABS: Absolute Lymphocytes (CBC) 2.3 K/uL (0.7-4.9); Hematocrit 36.5 % (39.6-49.0); Lymphocytes % 26.9 % (15.3-44.8); MCV 94.5 fL (80-100); MPV 8.2 fL (7.6-11.3); RBC Red Blood Cell Count 3.86 M/uL (4.33-5.43)
[2022-08-31 03:23] LABS: Potassium 3.5 mmol/L (3.5-5.1)
[2022-08-31 04:59] VITALS: O2SAT 95
[2022-08-31 08:29] VITALS: BP 124/69; TEMP 97.1
[2022-08-31] MEDS ORDERED: POTASSIUM CL SA 10 MEQ TAB PO ONE (09:00)
[2022-08-31] MEDS: MEGESTROL 40 MG TAB PO SCH (09:02)
[2022-08-31] MEDS: MIDODRINE HCL 5 MG TABLET PO SCH (09:03)
[2022-08-31] MEDS: MEMANTINE HCL 10 MG TABLET PO SCH (09:03)
[2022-08-31] MEDS: APIXABAN 5 MG TABLET PO SCH (09:03)
[2022-08-31] MEDS: ENSURE ENLIVE 237 ML CAN PO SCH (09:04)
--- NOTE | 2022-08-31 10:16 | RAD REPORT ---
EXAM DESCRIPTION: - CP - 08/31/2022 10:02 am CLINICAL HISTORY: dizziness COMPARISON: No comparisons TECHNIQUE: Real-time sonographic grayscale, color duplex, and spectral wave Doppler evaluation of [facility] was performed. FINDINGS: Normal high resistance waveforms are noted in both external carotid arteries. The common c arotid arteries and internal carotid arteries show normal low resistance waveforms. Mild echogenic plaque formation is seen at the carotid bulb bilaterally, some calcified, with smooth surface. Peak systolic velocity less than 125 cm/ sec bilaterally. ICA/CCA peak systolic ratios less than 2.0 bilaterally. Antegrade flow seen in both vertebral arteries. IMPRESSION: Mild atherosclerotic plaque formation is seen at the carotid bulb bilaterally. No evidence of a hemodynamically significant stenosis.
--- NOTE | 2022-08-31 10:36 | P.DS ---
Admission Date: 08/29/22 Discharge Date: 08/31/22 Disposition: ROUTINE DISCHARGE Discharge Condition: FAIR Reason for Admission: Pulmonary embolism - Problems (1) Pulmonary embolism Current Visit: Yes Status: Acute Qualifiers: Acute cor pulmonale presence: without acute cor pulmonale Brief History of Present Illness: Patient is 66 years of age with a history of lung cancer admitted with pulmonary embolism complaint of dizziness worse over the past week Hospital Course: Patient was admitted did well with conservative therapy his vital signs remained stable oxygenation blood pressure all satisfactory At time of discharge she had no complaints apart from dizziness that is been going on for about a week is worse with movement of his head according to the nurses he was ambulating by himself around the corridor he has initially has some chest discomfort that also improved heart rate ultrasound was negative patient does take Suboxone was refilled by me for a month no further refills patient to find a primary care physician last Suboxone was filled in June I gave him a 30-day supply also to take Eliquis 10 mg twice a day 7 days then 5 mg twice a day indefinitely. Patient's oncologist are at [facility] The time of discharge he was alert oriented responsive not in any distress chest clear abdomen soft In addition memantine and midodrine was also refilled to find a primary care physician Vital Signs/Physical Exam: Temp Pulse Resp BP Pulse Ox 97.1 F 61 16 124/69 95 08/31/22 08:00 08/31/22 08:00 08/31/22 09:03 08/31/22 08:00 08/31/22 09:03 Laboratory Data at Discharge: WBC 8.60 K/uL (4.3-10.9) 08/31/22 02:25 Hgb 11.8 g/dL (13.6-17.9) L D 08/31/22 02:25 Hct 36.5 % (39.6-49.0) L 08/31/22 02:25 Plt Count 168 K/uL (152-406) 08/31/22 02:25 PT 11.9 SECONDS (9.5-12.5) 08/29/22 16:46 INR 1.08 08/29/22 16:46 APTT 32.2 SECONDS (24.3-36.9) 08/29/22 16:46 Sodium 140 mmol/L (136-145) 08/31/22 02:25 Potassium 3.5 mmol/L (3.5-5.1) 08/31/22 02:25 BUN 11 mg/dL (7-18) 08/31/22 02:25 Creatinine 0.44 mg/dL (0.70-1.30) L 08/31/22 02:25 Glucose 111 mg/dL (74-106) H 08/31/22 02:25 Magnesium 1.9 mg/dL (1.6-2.4) 08/30/22 06:00 Total Bilirubin 0.6 mg/dL (0.2-1.0) 08/29/22 17:46 AST 19 U/L (15-37) 08/29/22 17:46 ALT 12 U/L (16-61) L 08/29/22 17:46 Alkaline Phosphatase 104 U/L (45-117) 08/29/22 17:46 Home Medications: Megestrol [Megace*] 40 mg PO BID 03/07/22 Quetiapine [Seroquel*] 75 mg PO BEDTIME 03/07/22 Buprenorphine/Nalox 0.5 film SL DAILY 08/29/22 Apixaban [Eliquis] 5 mg PO BID 30 Days #60 tablet 08/30/22 Apixaban [Eliquis] 10 mg PO BID 7 Days #14 tablet 08/30/22 Memantine HCl [Namenda*] 10 mg PO BID 30 Days #60 tab 08/31/22 Midodrine HCl [Proamatine*] 5 mg PO BID 30 Days #30 tab 08/31/22 New Medications: Apixaban [Eliquis] 10 mg PO BID 7 Days #14 tablet Apixaban [Eliquis] 5 mg PO BID 30 Days #60 tablet Memantine HCl [Namenda*] 10 mg PO BID 30 Days #60 tab Midodrine HCl [Proamatine*] 5 mg PO BID 30 Days #30 tab Followup: NONE,NONE [Primary Care Provider] -
[2022-08-31] MEDS ORDERED: PNEUMOCOCCAL VACCINE 0.5 ML IMVAC ONE (12:00)
[2022-08-31] MEDS ORDERED: INFLUENZA VACCINE (for 6+ mo) 0.5 ML DOSE IMVAC ONE (12:00)
== END 2022-08-31 12:41 | disposition home or self-care (01) ==
LOC: ER 15:56 → ERHOLD 19:45 → 2ND 21:01
PROVIDERS: ADMIT Hospitalist; ATTEND Internal Medicine Sleep Medicine
DX: I26.99 Other pulmonary embolism without acute cor pulmonale (principal); J44.9 Chronic obstructive pulmonary disease, unspecified; G89.29 Other chronic pain; Z99.81 Dependence on supplemental oxygen; Z85.118 Personal history of other malignant neoplasm of bronchus and lung; Z20.822 Contact with and (suspected) exposure to COVID-19
CPT/HCPCS: 96361; 93005; 87040 ×2; 85025 ×3; 80048 ×2; 36415 ×2; 83735; 85610; 83605; 85730; 80053; 0240U; 71275; 71045; 93880; 97116 ×2; 97161; 96372; 96374; 99285; Q9967; J1650 ×2; J7614; J2930; J7040; J7030 ×2; G0378

== ENCOUNTER 2022-11-06 15:05 | Emergency (ER) | payer OTHER ==
--- OUTSIDE RECORDS SUMMARY | 2022-11-06 15:12 | XMS REPORT | Clinical Summary ---
:1955 Author Organization [facility] Address [address] [place] [address] Care Team Providers Name Role Phone Carl Jones MD Unavailable Henrique Plasencia MD Primary Care Provider Kang Piedra MD Unavailable Mary Beth Hinson [facility] Unavailable Unavailable Allergies No known active allergies Medications Medication Sig Dispensed Refills Start Date End Date Status lancets 1 each by 60 each 11 10/06/2020 Active miscIndications: miscellaneous route Type 2 diabetes twice daily. mellitus with hyperglycemia buprenorphine-naloxo Place 2 tablets 60 tablet 0 01/17/2021 Active ne (SUBOXONE) 2 under the tongue 3 mg-0.5 mg sublingual (three) times a day. tabletIndications: Opioid use disorder, mild, in sustained remission multivitamin tab Take 1 tablet by 30 tablet 0 01/19/2021 Active tabletIndications: mouth daily. Aspiration into lower respiratory tract Additional Information Patient not taking. Reason: No longer taking, Reported on 09/13/2022 atorvastatin (LIPITOR) 40 mg Take 40 mg [...] the counter Additional Information Patient not taking. Reason: No longer taking, Reported on 09/13/2022 megestrol (MEGACE) 40 mg/mL Give 400 mg [...] respiratory tract Additional Information Patient not taking. Reason: No longer taking, Reported on 09/13/2022 memantine (NAMENDA) 10 mg TAKE 1 TABLET(10 [...] taking. Reason: No longer taking, Reported on 09/13/2022 aluminum-magnesium Take 15 mL by mouth every [...] hours. bacteria Additional Information Patient not taking. Reason: No longer taking, Reported on 09/13/2022 sucralfate (CARAFATE) 100 mg/mL Take 10 mL (1,000 mg) 420 mL 0 10/24/2021 Active suspensionIndications: by mouth 4 (four) Gastroesophageal reflux disease times a day before meals and nightly. Additional Information Patient not taking. Reason: No longer taking, Reported on 09/13/2022 QUEtiapine (SEROquel) 25 mg Take 3 tablets [...] specified Additional Information Patient not taking. Reason: completed, Reported on 09/13/2022 amoxicillin-clavulanate (Augmentin) Take 1 tablet (875 14 tablet 0 11/13/2021 Active 875 mg-125 mg per mg) by mouth twice tabletIndications: Upper daily. respiratory infection, not otherwise specified Additional Information Patient not taking. Reason: No longer taking, Reported on 06/07/2022 QUEtiapine (SEROquel) 25 mg Take 1 tablet (25 mg) 60 tablet 0 12/28/2021 Active tabletIndications: Anxiety by mouth every 6 (six) disorder due to a general hours as needed for medical condition non-violent agitation (anxiety sleep). Additional Information Patient not taking. Reason: No longer taking, Reported on 09/13/2022 midodrine Take 1 tablet (5 0 05/13/2022 Ac tive (PROAMATINE) 5 mg mg) by mouth tablet twice daily. nystatin Take 5 mL 0 05/02/2022 Active (MYCOSTATIN) 100,000 (500,000 Units) units/mL suspension by mouth every 8 (eight) hours. Eliquis 5 mg tablet Take 1 tablet (5 0 09/02/2022 Active mg) by mouth twice daily. ferrous sulfate 325 Take 1 tablet by 0 01/18/2021 Discontinued (65 FE) MG EC tablet mouth daily. 022 (Therapy completed) senna (SENOKOT) 8.6 Take 2 tablets 0 02/27/202110/28 Discontinued mg by mouth 2 (two) 022 ( erapy completed) tabletIndications: times a day as Aspiration into needed for lower respiratory constipation. tract Buy over the counter QUEtiapine Take 1 tablet 30 tablet 0 09/07/2021 Disc ontinued (SEROquel) 25 mg (25 mg) by mouth 022 (Reorder) tabletIndications: every 6 (six) Anxiety disorder due hours as needed to a general medical for non-violent condition agitation. QUEtiapine Take 1 tablet 60 tablet 0 12/01/2021 Disc ontinued (SEROquel) 25 mg (25 mg) by mouth 022 (Reorder) tabletIndications: every 6 (six) Anxiety disorder due hours as needed to a general medical for non-violent condition agitation (anxiety sleep). amoxicillin-clavulan Take 1 tablet 20 tablet 0 06/07/202205/30 ate (AUGMENTIN) 875 (875 mg) by 022 mg-125 mg per mouth twice tabletIndications: daily for 10 Small cell days. carcinoma, NOS of upper lobe, lung <Right> HYDROcodone-acetamin Take 1 tablet by 60 tablet 0 06/07/2022 0 ophen (Clawson) 5 mouth every 8 023 mg-325 mg per (eight) hours as tabletIndications: needed for Small cell moderate pain carcinoma, NOS of for up to 30 upper lobe, lung days. 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 Overview: Added automatically from request for rosa maria shah [id number] Family education about pain management 05/08/2021 History of radiation therapy 02/16/2021 Pressure-induced deep tissue damage of other site 02/2021 Overview: Site: Coccyx Sepsis 01/04/2021 Pulmonary embolism 11/17/2020 Stage 1 pressure ulcer of other site 11/14/2020 Overview: 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 Tube feeding diet [...] 08/10/2020 Decompensated COPD with acute exacerbation 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/2020 Small [...] not elsewhere classified Personal history of COVID-19 Encounters Date Type Specialty Care Team Description 09/13/2022 Follow-Up Thoracic Medicine Henrique Plasencia MD carcinoma, NOS of upper lobe, barbie g <Right> 09/13/2022 Ancillary Procedure Radiology Олег Clark ce ll Stella, ANP carcinoma, NO S of upper lobe, barbie g <Right> 09/13/2022 Hospital Encounter Lab Henrique Plasencia MD carcinoma, NOS of upper lobe, barbie g <Right> 09/13/2022 Orders Only Thoracic Medicine Олег Clark cell Stella, ANP carcinoma, NO S of upper lobe, barbie g <Right> (Primar y Dx) 09/13/2022 Travel 09/05/2022 Orders Only Thoracic Medicine Олег Clark cell Stella, ANP carcinoma, NO S of upper lobe, barbie g <Right> (Primar y Dx) 08/29/2022 Telephone Thoracic Medicine Liz Akhtar Shortn ess of Breath RN (/) 06/19/2022 Orders Only Thoracic Medicine Henrique Plasencia MD 06/07/2022 Follow-Up Thoracic Medicine Henrique Plasencia MD carcinoma, NOS of upper lobe, barbie g <Right> 06/07/2022 Hospital Encounter Lab Олег Clark benita l Stella, ANP carcinoma, NO S of upper lobe, barbie g <Right> 06/07/2022 Ancillary Procedure Radiology Олег Clark ce ll Stella, ANP carcinoma, NO S of upper lobe, barbie g <Right> 06/07/2022 Orders Only Thoracic Medicine Stella Clark, ANP 06/07/2022 Orders Only Thoracic Medicine Henrique Plasencia MD 06/07/2022 Travel 05/09/2022 Telephone Thoracic Surgery Inez Sanon, RN 05/03/2022 Orders Only Thoracic Medicine Олег Clark cell Stella, ANP carcinoma, NO S of upper lobe, barbie g <Right> (Primar y Dx) 05/03/2022 Telephone Thoracic Medicine Zulema Cedillo RN 12/28/2021 Nurse Triage Constantine Willis NP 12/28/2021 Documentation Thoracic Medicine Henrique Plasencia MD 12/20/2021 Telephone Lolita Gonzales RN 12/11/2021 Telephone Radiation Oncology Bibaina Pedersen, RN 12/05/2021 Telephone Thoracic Medicine Kasie Mehta, RN 12/01/2021 Nurse Triage rEin Olivares, RN 11/13/2021 Orders Only Thoracic Medicine Amber, Upper resp iratory Stella, ANP infection, no t otherwise speci fied (Primary Dx) 11/13/2021 Telephone Thoracic Medicine Daisy Shaffer, ELLA after 11/06/2021 Immunizations Name Administration Dates Next Due Bamlanivimab 07/29/2020 () Influenza Split High Dose Preservative 03/29/2020 Free IM Pneumococcal Polysaccharide 03/24/2022 Zoster Recombinant 03/29/2020 remdesivir 08/22/2020, 08/22/2020, 08/21/2020, [...] Drug induced diabetes mellitus with hyperglycemia 09/19/2020 Other pulmonary embolism without acute cor pulmonale on eliquis Family History Medical History Relation Name Comments Emphysema Maternal Grandfather Lung cancer Sister Relation Name Status Comments Maternal Grandfather Sister Social History Tobacco Use Types Packs/Day Years Used Date Smoking Tobacco: Former Cigarettes 1.5 1969 - 2019 Smokeless Tobacco: Never Tobacco Cessation: Counseling Given: Not Answered Alcohol Use Standard Drinks/Week Comments Not Currently 0 (1 standard drink = 0.6 oz pure .5 gal zachary of vodka daily 15 years alcohol) ago Sex Assigned at Date Recorded Not on file Job Start Date Occupation Industry Not on file Not on file Not on file Obstetrics History Last Filed Vital Signs Vital Sign Reading Time Taken Comments Blood Pressure 97/67 09/13/2022 11:01 AM CDT Pulse 75 09/13/2022 11:01 AM CDT Temperature 36.9 C (98.4 F) 09/13/2022 11:01 AM CDT Respiratory Rate 16 09/13/2022 11:01 AM CDT Oxygen Saturation 99% 09/13/2022 11:01 AM CDT Inhaled Oxygen Concentration - - Weight 47.9 kg (105 lb 9.6 oz) 09/13/2022 11:01 AM CDT Height 163 cm (5' 4.17") 06/07/2022 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 Body Mass Index 18.03 06/07/2022 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 Plan of Treatment Date Type Specialty Care Team Description 12/13/2022 Appointment Lab Nina Clark, ANP [address], [place] [address] (Wo rk) 12/13/2022 Appointment Radiology Nina Clark, MADALYN [address] [place], [place] [address] (Wo rk) 12/13/2022 Follow-Up Thoracic Medicine John Plasencia MD [address] [place], [place] [address] (Wo rk) Health Maintenance Due Date Last Done Comments COVID-19 Vaccination (#1) 05/25/1956 Procedures Procedure Name Priority Date/Time Associated Comments Diagnosis CT CHEST W CONTRAST Routine 09/13/2022 8:57 Small cell Resul ts for this AM CDT carcinoma, NOS of procedure are in upper lobe, lung the results <Right> section. POC CREATININE Routine 09/13/2022 8:38 Results fo r this AM CDT procedure are i n the results section. FRACTIONATED BILIRUBIN Routine 09/13/2022 8:10 Small cell Re sults for this AM CDT carcinoma, NOS of procedure are in upper lobe, lung the results <Right> section. TOTAL PROTEIN Routine 09/13/2022 8:10 Small cell Results for this AM CDT carcinoma, NOS of procedure are in upper lobe, lung the results <Right> section. ASPARTATE Routine 09/13/2022 8:10 Small cell Results for this AMINOTRANSFERASE AM CDT carcinoma, NOS of proced ure are in upper lobe, lung the results <Right> section. ALANINE AMINOTRANSFERASE Routine 09/13/2022 8:10 Small cell Results for this AM CDT carcinoma, NOS of procedure are in upper lobe, lung the results <Right> section. ALKALINE PHOSPHATASE Routine 09/13/2022 8:10 Small cell Resu lts for this AM CDT carcinoma, NOS of procedure are in upper lobe, lung the results <Right> section. ALBUMIN LEVEL Routine 09/13/2022 8:10 Small cell Results for this AM CDT carcinoma, NOS of procedure are in upper lobe, lung the results <Right> section. CALCIUM LEVEL TOTAL Routine 09/13/2022 8:10 Small cell Resul ts for this AM CDT carcinoma, NOS of procedure are in upper lobe, lung the results <Right> section. .GLOMERULAR FILTRATION Routine 09/13/2022 8:10 Small cell Re sults for this RATE AM CDT carcinoma, NOS of procedure are in upper lobe, lung the results <Right> section. SERUM CREATININE Routine 09/13/2022 8:10 Small cell Results for this AM CDT carcinoma, NOS of procedure are in upper lobe, lung the results <Right> section. ELECTROLYTE PANEL Routine 09/13/2022 8:10 Small cell Results for this AM CDT carcinoma, NOS of procedure are in upper lobe, lung the results <Right> section. BLOOD UREA NITROGEN Routine 09/13/2022 8:10 Small cell Resul ts for this AM CDT carcinoma, NOS of procedure are in upper lobe, lung the results <Right> section. GLUCOSE LEVEL Routine 09/13/2022 8:10 Small cell Results for this AM CDT carcinoma, NOS of procedure are in upper lobe, lung the results <Right> section. MANUAL DIFFERENTIAL Routine 09/13/2022 8:10 Small cell Resul ts for this AM CDT carcinoma, NOS of procedure are in upper lobe, lung the results <Right> section. Results CBC Routine 09/13/2022 8:10 Small cell Results for this AM CDT carcinoma, NOS of procedure are in upper lobe, lung the results <Right> section. COMPREHENSIVE METABOLIC Routine 09/13/2022 8:10 Small cell PANEL AM CDT carcinoma, NOS of upper lobe, lung <Right> COMPLETE BLOOD COUNT W/ Routine 09/13/2022 8:10 Small cell DIFFERENTIAL AM CDT carcinoma, NOS of upper lobe, lung <Right> ELECTROLYTE PANEL Routine 06/07/2022 9:54 Small cell Results for this AM ASSOCIATE DENTIST carcinoma, NOS of procedure are in upper lobe, lung the results <Right> section. FRACTIONATED BILIRUBIN Routine 06/07/2022 9:54 Small cell Re sults for this AM ASSOCIATE DENTIST carcinoma, NOS of procedure are in upper lobe, lung the results <Right> section. TOTAL PROTEIN Routine 06/07/2022 9:54 Small cell Results for this AM ASSOCIATE DENTIST carcinoma, NOS of procedure are in upper lobe, lung the results <Right> section. ASPARTATE Routine 06/07/2022 9:54 Small cell Results for this AMINOTRANSFERASE AM ASSOCIATE DENTIST carcinoma, NOS of proced ure are in upper lobe, lung the results <Right> section. ALANINE AMINOTRANSFERASE Routine 06/07/2022 9:54 Small cell Results for this AM ASSOCIATE DENTIST carcinoma, NOS of procedure are in upper lobe, lung the results <Right> section. ALKALINE PHOSPHATASE Routine 06/07/2022 9:54 Small cell Resu lts for this AM ASSOCIATE DENTIST carcinoma, NOS of procedure are in upper lobe, lung the results <Right> section. ALBUMIN LEVEL Routine 06/07/2022 9:54 Small cell Results for this AM ASSOCIATE DENTIST carcinoma, NOS of procedure are in upper lobe, lung the results <Right> section. CALCIUM LEVEL TOTAL Routine 06/07/2022 9:54 Small cell Resul ts for this AM ASSOCIATE DENTIST carcinoma, NOS of procedure are in upper lobe, lung the results <Right> section. .GLOMERULAR FILTRATION Routine 06/07/2022 9:54 Small cell Re sults for this RATE AM ASSOCIATE DENTIST carcinoma, NOS of procedure are in upper lobe, lung the results <Right> section. SERUM CREATININE Routine 06/07/2022 9:54 Small cell Results for this AM ASSOCIATE DENTIST carcinoma, NOS of procedure are in upper lobe, lung the results <Right> section. BLOOD UREA NITROGEN Routine 06/07/2022 9:54 Small cell Resul ts for this AM ASSOCIATE DENTIST carcinoma, NOS of procedure are in upper lobe, lung the results <Right> section. GLUCOSE LEVEL Routine 06/07/2022 9:54 Small cell Results for this AM ASSOCIATE DENTIST carcinoma, NOS of procedure are in upper lobe, lung the results <Right> section. MANUAL DIFFERENTIAL Routine 06/07/2022 9:54 Small cell Resul ts for this AM ASSOCIATE DENTIST carcinoma, NOS of procedure are in upper lobe, lung the results <Right> section. Results CBC Routine 06/07/2022 9:54 Small cell Results for this AM ASSOCIATE DENTIST carcinoma, NOS of procedure are in upper lobe, lung the results <Right> section. URIC ACID Routine 06/07/2022 9:54 Small cell Results for this AM ASSOCIATE DENTIST carcinoma, NOS of procedure are in upper lobe, lung the results <Right> section. THYROID STIMULATING Routine 06/07/2022 9:54 Small cell Resul ts for this HORMONE AM ASSOCIATE DENTIST carcinoma, NOS of procedure are in upper lobe, lung the results <Right> section. TOTAL T3 Routine 06/07/2022 9:54 Small cell Results for this AM ASSOCIATE DENTIST carcinoma, NOS of procedure are in upper lobe, lung the results <Right> section. MAGNESIUM LEVEL Routine 06/07/2022 9:54 Small cell Results f or this AM ASSOCIATE DENTIST carcinoma, NOS of procedure are in upper lobe, lung the results <Right> section. FREE THYROXINE Routine 06/07/2022 9:54 Small cell Results fo r this AM ASSOCIATE DENTIST carcinoma, NOS of procedure are in upper lobe, lung the results <Right> section. COMPREHENSIVE METABOLIC Routine 06/07/2022 9:54 Small cell PANEL AM ASSOCIATE DENTIST carcinoma, NOS of upper lobe, lung <Right> COMPLETE BLOOD COUNT W/ Routine 06/07/2022 9:54 Small cell DIFFERENTIAL AM ASSOCIATE DENTIST carcinoma, NOS of upper lobe, lung <Right> PETCT SUBSEQUENT Routine 06/07/2022 9:27 Small cell Results for this TREATMENT STRATEGY AM ASSOCIATE DENTIST carcinoma, NOS of proc edure are in upper lobe, lung the results <Right> section. after 11/06/[address] Chest with Contrast (09/13/2022 8:57 AM CDT) Anatomical Region Laterality Modality Chest Computed Tomography Specimen (Source) Anatomical Collection Method Collection Time Re ceived Time Location / / Volume Laterality 09/13/2022 9:49 AM CDT Impressions 09/13/2022 10:48 AM CDT 1. Enlarging cavitary space with airwa y connection within the radiation therapy-related fibrosis in the right upper lobe. No evidence of recurrent disease. 2. New 4 mm nodule in the lingula is i ndeterminate and can be reassessed at follow-up. 3. Unchanged nodular opacities in the right apex and lingula are nonspecific and can be followed. 4. Thoracic lymph nodes are unchanged from 06/07/2022, decreased from 10/15/2021. 5. Multivessel coronary artery disease . Narrative 09/13/2022 10:48 AM CDT FULL RESULT: Examination: CT Chest with IV contrast, 09/13/2022 8:57 AM Clinical History: Small cell carcinoma, NOS of upper lobe, lung <Right> Indication: Lung neoplasm or cancer recu rrence suspected, Metastatic cancer suspected Comparison: PET CT 06/07/2022; chest CT 10/15/2021 Technique: Contiguous CT images through the chest were acquired following the administration of intravenous contrast. Coronal and sagittal multiplanar reformats and maximum intensity projection (MIP) images were performed. Findings: The lungs are emphysematous. H eaped up right upper lobe subpleural opacity in the radiation therapy field is similar in overall size, although a cavitary portion is increased and has direct ai rway connection (image 35, series 3). Un changed nodular opacities in the right apex (image 22) and the lingula (image 96). A 4 mm nodule in the lingula is new (image 100). Unchanged scarring in the right upper lobe and left lung base. No pleural effusion. A subcarinal lymph node is 11 mm (image 64, series 2). Multiple subcentimeter mediastinal and hilar lymph nodes are similar to 06/07/2022 and decreased from 10/15/2021. The heart is normal in size. There is mu ltivessel coronary artery disease. The thoracic aorta and main, truncal are normal in diameter. The pulmonary arteries are well-opacified. The esophagus is nondistended and normal in course. Images through the upper abdomen demonstrate normal adrenal gland morphology. No focal hepatic or splenic lesion on single phase imaging. Renal enhancement is symmetric. There are degenerative changes of the sp ine and shoulders. No bone lesion or acute bone fracture in the thorax. Procedure Note Brisa Serna MD - 09/13/2022Forma tting of this note might be different from the original. FULL RESULT: Examination: CT Chest with IV contrast, 09/13/2022 8:57 AM Clinical History: Small cell carcinoma, NOS of upper lobe, lung <Right> Indication: Lung neoplasm or cancer recu rrence suspected, Metastatic cancer suspected Comparison: PET CT 06/07/2022; chest CT 10/15/2021 Technique: Contiguous CT images through the chest were acquired following the administration of intravenous contrast. Coronal and sagittal multiplanar reformats and maximum intensity projection (MIP) images were performed. Findings: The lungs are emphysematous. H eaped up right upper lobe subpleural opacity in the radiation therapy field is similar in overall size, although a cavitary portion is increased and has direct airway connection (image 35, series 3). Unchang ed nodular opacities in the right apex (image 22) and the lingula (image 96). A 4 mm nodule in the lingula is new (image 100). Unchanged scarring in the right upper lobe and left lung base. No pleural effusion. A subcarinal lymph node is 11 mm (image 64, series 2). Multiple subcentimeter mediastinal and hilar lymph nodes are similar to 06/07/2022 and decreased from 10/15/2021. The heart is normal in size. There is mu ltivessel coronary artery disease. The thoracic aorta and main, truncal are normal in diameter. The pulmonary arteries are well-opacified. The esophagus is nondistended and normal in course. Images through the upper abdomen demonstrate normal adrenal gland morphology. No focal hepatic or splenic lesion on single phase imaging. Renal enhancement is symmetric. There are degenerative changes of the sp ine and shoulders. No bone lesion or acute bone fracture in the thorax. IMPRESSION: 1. Enlarging cavitary space with airway connection within the radiation therapy- related fibrosis in the right upper lobe. No evidence of recurrent disease. 2. New 4 mm nodule in the lingula is ind eterminate and can be reassessed at follow-up. 3. Unchanged nodular opacities in the ri ght apex and lingula are nonspecific and can be followed. 4. Thoracic lymph nodes are unchanged fr om 06/07/2022, decreased from 10/15/2021. 5. Multivessel coronary artery disease. Stella Clark ANP IMG CT ORDERABLES POC Creatinine (09/13/2022 8:38 AM CDT) athologist Signature POC Crea 0.6 0.6 - [...] analyte concentration by an electrochemical assay. POC EGFR 106 >=60 mL/min/1.73 sq. m POC TEL COR Comment: The eGFRcr is calculated with the [...] G1 nor G2 fulfill criteria for CKD. POC Clean Dev Yes POC TELCOR Performing Lab [facility] POC TELCO R Comment: [facility] Clinical Lab, [address] [place] [address], [place] [address]; Lab Direct or: Karma Arciniega MD; Waived Point of Care Testing - Rosina Parikh MD Specimen Anatomical Collection Method Collection Time Receive d Time (Source) Location / / Volume Laterality Blood 09/13/2022 8:38 AM 3 8:38 CDT AM CDT Stella BERGMAN POCT ORDERABLES - DEVICE Performing Organization Address City/State/ZIP Code Phon e Number POC TELCOR Unless otherwise noted, [place] [address] lab tests performed by: Division of Pathology and Laboratory Medicine [address] [place] [address] (ABNORMAL) .Serum Creatinine (09/13/2022 8:10 AM CDT)Only the most recent of2 resultswithin the time period is included. P athologist Signature Creatinine 0.62 (L) 0.67 - 1.17 [facility] mg/dL Comment: Testing Performed at [facility] Am [facility] Care [facility]ld[facility], [address], [place] [address] Specimen Anatomical Collection Method Collection Time Receive d Time (Source) Location / / Volume Laterality Blood 09/13/2022 8:10 AM 3 8:36 CDT AM CDT Narrative [facility] - 09/13/2022 9:14 AM CDT Schedule same day tests/clinic appt Henrique Plasencia MD LAB BLOOD ORDERABLES Performing Organization Address City/State/ZIP Code Phon e Number [facility] [address] [place] [address] [address] (ABNORMAL) .CBC (09/13/2022 8:10 AM CDT)Only the most recent of2 resultswithin the time period is included. athologist Signature WBC 6.9 4.0 - 11.0 [facility] K/uL RBC 4.71 4.50 - 6.00 [facility] M/uL Hgb 14.5 14.0 - 18.0 [facility] gm/dL Comment: As part of CBC or as an individ ual orderable testing performed at [facility], [address] , [address], [place] [id number] Hct 45.2 40.0 - 54.0 % [facility] Comment: As part of CBC or as an individ ual orderable testing performed at [facility], [address] , [address], [place] [id number] MCV 96 82 - [address] [facility] MCH 30.8 27.0 - 31.[address] [facility] MCHC 32.1 31.0 - 36.0 gm/dL [facility] RDW-SD 62.4 (H) 35.1 - 46.[address] [facility] RDW-CV 17.9 (H) 12.0 - 15.5 % [facility] Platelet count 310 140 - 440 K/uL [facility] Comment: As part of CBC or as an individ ual orderable testing performed at [facility], [address] , [address], [place] [id number] MPV 9.6 4.0 - 10.[address] [facility] INRBC 0.0 <=0.0 % [facility] Comment: The INRBC (instrument NRBC) value reflec ts the enumeration of nucleated red blood cells contained i n a 200uL sample of whole blood analyzed by the instrumen t. This value may differ from the NRBC value reported in a manual differential, which is based on a 100 cell differentia l. As part of CBC testing performed at [facility] Wheel Adjuster [facility] [address] [facility] [address], [place] [address] Specimen Anatomical Collection Method Collection Time Receive d Time (Source) Location / / Volume Laterality Blood 09/13/2022 8:10 AM 3 8:28 CDT AM CDT Narrative [facility] - 09/13/2022 8:32 AM CDT Schedule same day tests/clinic appt Henrique Plasencia MD LAB BLOOD ORDERABLES Performing Organization Address City/[facility]/ZIP Code Phon e Number [facility] [address] [facility] [place] [address] [address] Glomerular Filtration Rate (09/13/2022 8:10 AM CDT)Only the most recent of2 resultswithin the time period is included. athologist Signature eGFR 105 >=60 [facility] mL/min/1.73 sq. m Comment: The eGFRcr [...] fulfill criteria for CKD. Testing Performed at [facility] Wheel Adjuster [facility], [address] [facility], [address], [place] [address] Specimen Anatomical Collection Method Collection Time Receive d Time (Source) Location / / Volume Laterality Blood 09/13/2022 8:10 AM 3 8:36 CDT AM CDT [address] [facility] - 09/13/2022 9:14 AM CDT Schedule same day tests/clinic appt Henrique Plasencia MD LAB BLOOD ORDERABLES Performing Organization Address City/[facility]/ZIP Code Phon e Number [address] [place] [address] [address] Fractionated Bilirubin (09/13/2022 8:10 AM CDT)Only the most recent of2 results within the time period is included. athologist [facility] Bili Total <0.3 <=1.2 mg/dL [facility] Comment: Direct and indirect bilirubin will not b e reported when Total bilirubin result is <0.3 mg/dL Indocyanine Green (ICG) may cause falsel y elevated bilirubin results. Total and direct bilirubin must not be measured from samples containing indocyanine green. False elevation of total bilirubin can b e seen in patients with IgG concentrations above 28 g/L. Testing Performed at [facility], [address] [place] [address], [address], [place] [address] Specimen Anatomical Collection Method Collection Time Receive d Time (Source) Location / / Volume Laterality Blood 09/13/2022 8:10 AM 8:36 CDT [address] [facility] - 09/13/2022 9:14 AM CDT Schedule same day tests/clinic appt Henrique Plasencia MD LAB BLOOD ORDERABLES Performing Organization Address City/State/ZIP Code Phon e Number [address] [place] [address] [address] (ABNORMAL) Differential (09/13/2022 8:10 AM CDT)Only the most recent of2 results within the time period is included. athologist [facility] Neutrophil % 48.8 42.0 - 66.0 [facility] % Comment: As part of Differential perform ed at [facility], [address] [place] [address], [address], [place] [address] 0 Lymphocyte % 34.8 24.0 - 44.0 % [facility] Monocyte % 9.1 (H) 2.0 - 7.0 % [facility] Eosinophil % 6.6 (H) 1.0 - 4.0 % [facility] Basophil % 0.7 0.0 - 1.0 % [facility] IGRE % 0.0 0.0 - 0.4 % [facility] Comment: IGRE % count includes Metamyelocytes, My elocytes, and Promyelocytes. As part of Differential performed at [facility] Wheel [facility], [address] [place] [address], [address], [place] [address] Neutrophil Abs 3.37 1.70 - 7.30 K/uL [facility] Lymphocyte Abs 2.41 1.00 - 4.80 K/uL [facility] Monocyte Abs 0.63 0.08 - 0.70 K/uL [facility] Eosinophil Abs 0.46 (H) 0.04 - 0.40 K/uL [facility] Basophil Abs 0.05 0.00 - 0.10 K/uL [facility] IG Abs 0.00 0.00 - 0.04 K/uL [facility] Specimen Anatomical Collection Method Collection Time Receive d Time (Source) Location / / Volume Laterality Blood 09/13/2022 8:10 AM 3 8:28 CDT AM CDT [facility] - 09/13/2022 8:32 AM CDT Schedule same day tests/clinic appt Henrique Plasencia MD LAB BLOOD ORDERABLES Performing Organization Address City/State/ZIP Code [facility] e Number [address] [place] [address] [address] BUN (09/13/2022 8:10 AM CDT)Only the most recent of2 resultswithin the time period is included. P athologist Signature BUN 10 6 - 23 mg/dL [facility] Comment: Testing Performed at [facility], [address] [place] [address], [address], [place] [address] Specimen Anatomical Collection Method Collection Time Receive d Time (Source) Location / / Volume Laterality Blood 09/13/2022 8:10 AM 3 8:36 CDT AM CDT [facility] - 09/13/2022 9:14 AM CDT Schedule same day tests/clinic appt Henrique Plasencia MD LAB BLOOD ORDERABLES Performing Organization Address City/[facility]/ZIP [facility] e Number [address] [place] [address] [address] ALT (09/13/2022 8:10 AM CDT)Only the most recent of2 resultswithin the time period is included. athologist Signature ALT 7 <=41 U/L [facility] Comment: Testing Performed at [facility] Am bulatory Care [facility], [address], [address], [place] [address] Specimen Anatomical Collection Method Collection Time Receive d Time (Source) Location / / Volume Laterality Blood 09/13/2022 8:10 AM 3 8:36 CDT AM CDT Narrative [facility] - 09/13/2022 9:14 AM CDT Schedule same day tests/clinic appt Henrique Plasencia MD LAB BLOOD ORDERABLES Performing Organization Address City/State/ZIP [facility] e Number [facility] [address] [place] [address] [address] Aspartate Aminotransferase (09/13/2022 8:10 AM CDT)Only the most recent of2 resultswithin the time period is included. athologist Signature AST 12 <=40 U/L [facility] Comment: Testing Performed at [facility] Am [facility] Care [facility], [address] [facility], [place] [address] Specimen Anatomical Collection Method Collection Time Receive d Time (Source) Location / / Volume Laterality Blood 09/13/2022 8:10 AM 3 8:36 CDT AM CDT Narrative [facility] - 09/13/2022 9:14 AM CDT Schedule same day tests/clinic appt Henrique Plasencia MD LAB BLOOD ORDERABLES Performing Organization Address City/[facility] e Number [facility] [address] [place] [address] [address] Total Protein (09/13/2022 8:10 AM CDT)Only the most recent of2 resultswithin the time period is included. athologist Signature Total Protein 7.2 6.4 - 8.3 [facility] g/dL Comment: Testing Performed at [facility] Lab Am bulatory Care [facility], [address], [address], [place] [address] Specimen Anatomical Collection Method Collection Time Receive d Time (Source) Location / / Volume Laterality Blood 09/13/2022 8:10 AM 3 8:[address] [facility] - 09/13/2022 9:14 AM CDT Schedule same day tests/clinic appt Henrique Plasencia MD LAB BLOOD ORDERABLES Performing Organization Address [facility] e Number [facility] [address] [place] [address] [address] Alkaline Phosphatase (09/13/2022 8:10 AM CDT)Only the most recent of2 results within the time period is included. athologist Signature Alk Phos 94 40 - 129 U/L [facility] Comment: Testing Performed at [facility] Am bulatory Care [facility], [address], [address], [place] [address] Specimen Anatomical Collection Method Collection Time Receive d Time (Source) Location / / Volume Laterality Blood 09/13/2022 8:10 AM 3 8:36 CDT AM CDT [facility] - 09/13/2022 9:14 AM CDT Schedule same day tests/clinic appt Henrique Plasencia MD LAB BLOOD ORDERABLES Performing Organization Address [facility] Number [facility] [address] [place] [address]. [place] [address] [address] (ABNORMAL) Glucose Level (09/13/2022 8:10 AM CDT)Only the most recent of2 resultswithin the time period is included. athologist Signature Glucose Level 102 (H) 70 - 99 [facility] mg/dL Comment: Effective 01/24/16, the glucose reference intervals have been updated based on [place] [employer] guidelines (Standards of Medical Care in Diabetes 2016. Diabetes Care 2016; 39: S13-S22). Fasting blood glucose: Normal: 70-99 mg/dL Impaired fasting glucose (increased risk for diabetes or pre-diabetes): 100- 125 mg/dL Diabetes mellitus: >/=126 mg/dL Random blood glucose: Normal: 70-199 mg/dL Note: Random glucose >100 mg/dL is assoc iated with increased risk for diabetes Testing Performed at [facility] Wheel Adjuster [facility], [address] [facility], [address], [place] [address] Specimen Anatomical Collection Method Collection Time Receive d Time (Source) Location / / Volume Laterality Blood 09/13/2022 8:10 AM 3 8:36 CDT AM CDT Narrative [facility] - 09/13/2022 9:13 AM CDT Schedule same day tests/clinic appt Henrique Plasencia MD LAB BLOOD ORDERABLES Performing Organization Address City/State/ZIP Code [facility] e Number [facility] [address] [place] [address] [address] Calcium Level (09/13/2022 8:10 AM CDT)Only the most recent of2 resultswithin the time period is included. P athologist Signature Calcium Lvl 9.4 8.4 - 10.2 [facility] mg/dL Comment: Testing Performed at [facility] Am bulatory Care dg, [address], [address], [place] [address] Specimen Anatomical Collection Method Collection Time Receive d Time (Source) Location / / Volume Laterality Blood 09/13/2022 8:10 AM 3 8:36 CDT AM CDT [facility] - 09/13/2022 9:14 AM CDT Schedule same day tests/clinic appt Henrique Plasencia MD LAB BLOOD ORDERABLES Performing Organization Address [facility] e Number [facility] [address] [place] [address] [address] Albumin Level (09/13/2022 8:10 AM CDT)Only the most recent of2 resultswithin the time period is included. P athologist Signature Albumin Lvl 4.0 3.5 - 5.2 [facility] gm/dL Comment: Testing Performed at [facility] Am [facility], [address], [address], [place] [address] Specimen Anatomical Collection Method Collection Time Receive d Time (Source) Location / / Volume Laterality Blood 09/13/2022 8:10 AM 3 8:36 CDT AM CDT Narrative [facility] - 09/13/2022 9:14 AM CDT Schedule same day tests/clinic appt Henrique Plasencia MD LAB BLOOD ORDERABLES Performing Organization Address City/State/ZIP Code [facility] e Number [facility] [address] [place] [address] [address] Electrolyte Panel (09/13/2022 8:10 AM CDT)Only the most recent of2 resultswithin the time period is included. P athologist Signature Sodium Lvl 141 136 - 145 [facility] mEq/L Comment: Testing Performed at [facility] Lab Am bulatory Care [facility], [address], [address], [place] [address] Potassium Lvl 3.9 3.5 - 5.1 mEq/L [facility] Comment: Testing Performed at [facility] Lab Am [facility] Care [facility], [address], [address], [place] [id number] Chloride 105 98 - 107 mEq/L [facility] Comment: Testing Performed at [facility] Lab Am [facility] Care [facility], [address], [address], [place] [id number] CO2 25 22 - 29 mEq/L [facility] Comment: Testing Performed at [facility] Lab Am [facility] Care [facility], [address], [address], [place] [phone] Anion Gap 11 4 - 14 mEq/L [facility] Comment: Testing Performed at [facility], [address], [address], [place] [address] Specimen Anatomical Collection Method Collection Time Receive d Time (Source) Location / / Volume Laterality Blood 09/13/2022 8:10 AM 8:36 CDT AM CDT Narrative [facility] - 09/13/2022 9:14 AM CDT Schedule same day tests/clinic appt Henrique Plasencia MD LAB BLOOD ORDERABLES Performing Organization Address City/State/ZIP Code Phon e Number [facility] [address] [place] [address] [address] Uric Acid (06/07/2022 9:54 AM ASSOCIATE DENTIST) athologist Signature Uric Acid 5.3 3.4 - 7.0 [facility] mg/dL Comment: Testing Performed at [facility] Lab Am [facility] Care [facility], [address], [address], [place] [address] Specimen Anatomical Collection Method Collection Time Receive d Time (Source) Location / / Volume Laterality Blood 06/07/2022 9:54 AM 2 ASSOCIATE DENTIST 10:05 AM ASSOCIATE DENTIST Stella Amber ANP LAB BLOOD ORDERABLES Performing Organization Address City/[facility]/ZIP Code Phon e Number [facility] [address] [place] [address]. [place] [address] [address] T3 (06/07/2022 9:54 AM ASSOCIATE DENTIST) athologist Signature T3 Total 153 80 - 200 [facility] ng/dL [facility] Specimen Anatomical Collection Method Collection Time Receive d Time (Source) Location / / Volume Laterality Blood 06/07/2022 9:54 AM 2 ASSOCIATE DENTIST 10:53 AM ASSOCIATE DENTIST Stella Amber ANP LAB BLOOD ORDERABLES Performing Organization Address City/[facility]/ZIP Code Phon e Number [facility] CANCER Unless otherwise noted, [place] [address] CENTER all lab tests performed by: Division of Pathology and Laboratory Medicine [address] [place] [address] TSH (06/07/2022 9:54 AM ASSOCIATE DENTIST) athologist Signature TSH 0.65 0.27 - 4.20 [facility] mcunit/mL Comment: Note: New Methodology and Reference Ra nge change effective 10/16/2017 at 1400 Testing Performed at [facility] Wheel Adjuster [facility], [address] [place] [address], [address], [place] [address] Specimen Anatomical Collection Method Collection Time Receive d Time (Source) Location / / Volume Laterality Blood 06/07/2022 9:54 AM 2 ASSOCIATE DENTIST 10:05 AM ASSOCIATE DENTIST Stlela Clark ANP LAB BLOOD ORDERABLES Performing Organization Address City/State/ZIP Code Phon e Number [facility] [address] [place] [address]. [place] [address] [address] Free T4 (06/07/2022 9:54 AM ASSOCIATE DENTIST) athologist Signature T4 Free 1.01 0.93 - 1.70 [facility] ng/dL Comment: Testing Performed at [facility] Lab Am bulatory Care [facility], [address], [address], [place] [address] Specimen Anatomical Collection Method Collection Time Receive d Time (Source) Location / / Volume Laterality Blood 06/07/2022 9:54 AM 2 ASSOCIATE DENTIST 10:05 AM ASSOCIATE DENTIST Stella Clark ANP LAB BLOOD ORDERABLES Performing Organization Address City/State/ZIP Code Phon e Number [facility] [address] [place] [address]. [place] [address] [address] Magnesium Level (06/07/2022 9:54 AM ASSOCIATE DENTIST) P athologist Signature Magnesium 1.9 1.6 - 2.6 [facility] mg/dL Comment: Testing Performed at [facility] Am [facility], [address], [address], [place] [address] Specimen Anatomical Collection Method Collection Time Receive d Time (Source) Location / / Volume Laterality Blood 06/07/2022 9:54 AM 2 ASSOCIATE DENTIST 10:05 AM ASSOCIATE DENTIST Stella Clark ANP LAB BLOOD ORDERABLES Performing Organization Address City/[facility]/ZIP Code [facility] e Number [facility] [address] [place] [address]. [place] [address] [address] PETCT Subsequent Treatment Strategy (06/07/2022 9:27 AM ASSOCIATE DENTIST) Anatomical Region Laterality Modality Whole Body Positron Emission To mography (PET) Specimen (Source) Anatomical Collection Method Collection Time Re ceived Time Location / / Volume Laterality 06/07/2022 11:01 AM ASSOCIATE DENTIST Impressions 06/07/2022 11:46 AM ASSOCIATE DENTIST 1. No convincing evidence of FDG-avid small cell lung cancer. 2. Bilateral irregular lung opacities wi th some regions demonstrating associated activity show some change in anatomic configuration when compared to 10/15/2021 CT and are compatible with a chronic waxing/waning infectious or inflammatory process. Narrative 06/07/2022 11:46 AM ASSOCIATE DENTIST FULL RESULT: Examination: FDG PET/CT, 06/07/2022 9:27 [...] chronic waxing/waning infectious or inflammatory process. Stella Clark ANP IMG PETCT ORDERABLES after 11/06/2021 Insurance Payer Benefit Plan / Subscriber ID Effective Phone Address T ype Group Dates [facility] [id number] 2020-Prese [address] 72 Medicare MEDICARE MEDICARE nt [place] AD[place]AGE ADVANTAGE [id number] Guarantor Name Account Type Relation to Date of Phone Billing Patient Address Chato Moreno Personal/Family Self 1955 [phone] ([place]) [place] [address] Chato Moreno Personal/Family Self 1955 [id number] [place] [address] Advance Directives Code Status Date Activated Date Inactivated Comments Full Code 10/15/2021 2:23 PM 10/24/2021 8:32 PM Code Status Date Activated Date Inactivated Comments Full Code 09/03/2021 10:00 PM 09/07/2021 5:51 PM Full Code 02/16/2021 11:33 PM 03/02/2021 8:45 PM Full Code 01/22/2021 1:08 AM 01/30/2021 8:41 PM Full Code 01/04/2021 3:56 PM 01/19/2021 6:53 PM Care 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
[2022-11-06] MEDS ORDERED: METHYLPREDNISOLONE 125 MG INJ ONE (15:26)
[2022-11-06] MEDS ORDERED: ALBUTEROL 2.5 MG/3 ML NEB SOL ONE (15:26)
[2022-11-06] MEDS ORDERED: IPRATROPIUM BROM 0.5MG/2.5ML ONE (15:26)
--- OUTSIDE RECORDS SUMMARY | 2022-11-06 15:26 | XMS REPORT | Continuity of Care Document ---
:1955 Author Organization [facility] t Address [address] [facility] [place] [address] Care Team Providers Name Role Phone MARIA FERNANDA WASHINGTON Primary Care Physician Unavailable SYSTEM, PROVIDER NOT IN Attending Clinician Unavailable Padmini CARDENAS, Maria Fernanda Fu Attending Clinician Stella Goodrich Attending Clinician Giovana JARAMILLO, Liz Flores Attending Clinician Unavailable Fab JARAMILLO, Inez Stewart Attending Clinician Unavailable Zulema Cedillo RN Attending Clinician Unavailable Lazaro FIREWALL ENGINEER, Constantine Attending Clinician Ger JARAMILLO, Lolita Sommer Attending Clinician Unavailable Bibiana Pedersen RN Attending Clinician Unavailable Tyson JARAMILLO, Kasie Lehman Attending Clinician Unavailable Erin Olivares RN Attending Clinician Edmund JARAMILLO, Daisy Zimmerman Attending Clinician Unavailable Nenita CARDENAS, Fito Kapadia Attending Clinician Karishma Chu RN Attending Clinician Unavailable Bijan CARDENAS, Verónica Attending Clinician Thelma Bowser DO Attending Clinician Judy CARDENAS, Ed Attending Clinician Randa CARDENAS, Tod Cervantes. Attending Clinician Alexus CARDENAS, Boni Carr Attending Clinician [phone] Jackson JARAMILLO, Arcadio Attending Clinician Unavailable BONI OBRIEN Attending Clinician Unavailable Aisha CARDENAS, Edwige Orozco Attending Clinician Zane CARDENAS, Jenise Attending Clinician Dhiraj Fry CRNA Attending Clinician Jacquelyn CARDENAS, Shena Gudino Attending Clinician Unavailable TOD GLASS V. Attending Clinician Unavailable MARIA FERNANDA WASHINGTON V. Attending Clinician Unavailable JUDY, ED Attending Clinician Unavailable Shantal Patiño MD, Deshawn Attending Clinician [phone] Dean JARAMILLO, Stella Stewart Attending Clinician Unavailable Price JARAMILLO, Ileana Ann Attending Clinician Unavailable Aisha CARDENAS, Mehrdad Attending Clinician Gurpreet Estes MD Attending Clinician SOFI HART Attending Clinician Unavailable Michael Lopez RN Attending Clinician Unavailable Lela Sanon APN Attending Clinician Tadeo CARDENAS, Herrera Attending Clinician Jacki Campbell Attending Clinician Gucci FIREWALL ENGINEER, Sarah Ybarra Attending Clinician Tejinder CARDENAS, Raymundo Attending Clinician Miguel Ángel ROUSSEAU, Nicole Hirsch Attending Clinician Abdirizak Fenton MD Attending Clinician Jarrett JARAMILLO, Génesis Ann Attending Clinician Unavailable Anais JARAMILLO, Génesis Trevino Attending Clinician Unavailable Andrea ROUSSEAU, Jackie Attending Clinician Yudith Rivas RN Attending Clinician Unavailable Claude Tobin MD Attending Clinician Junek SPOOL SORTER, Elmira N Attending Clinician Tegan CARDENAS, Giovanna Tanner Attending Clinician Sravan [facility] ICE CREAM, Mary Beth Ann Attending Clinician Unavailable Rah CARDENAS, Herrera Attending Clinician Enzo PharmD, Wayne Attending Clinician Brandon RN, Juan Lehman Attending Clinician Unavailable Lisa JARAMILLO, Gurpreet Ramírez Attending Clinician Unavailable Pineda WITT, Gabrielle Owens Attending Clinician Tejinder CHAPPELL, Alina Attending Clinician Wilfredo Santillan APN Attending Clinician Chris PharmD, Tanja Mora Attending Clinician Unavailable Precious CAREDNAS, Benedicto Attending Clinician Shivam JARAMILLO, Sahara Farah [...] No Primary or Family Admitting Clinician [facility] Payers Payer Name Policy Type Policy Number Effective Date Expiration Date S william EMANUEL [id number] 2020 PLUS CLASSIC/VALUE 00:00:00 Problems Condition Condition Condition Status Onset Resolution Last Treating Co mments Source Name Details Category Date Date Treatment Clinician Date 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 Center Added automatic ally from request for surgery [id number] Family Family Disease Active 2020-06 Univers education education 1-09 [place]y of about pain about [place] management management 00 MD Fuentes zimmerman [facility] [place] History of History of Disease Recurre Univers radiation radiation nce 8-20 ity of therapy therapy 00:00: [place] 00 MD Fuentes zimmerman [facility] Pressure-i Pressure-i Disease Active Overview : Univers nduced nduced 7-09 Formattin ity of deep deep 00:00: g of this [place] tissue tissue 00 note damage of damage of might be An derso other site other site different n from the Cancer original. Center Site: Coccyx Sepsis Sepsis Disease Active Univers 7-08 ity of 00:00: [place] 00 MD Fuentes zimmerman [facility] Pulmonary Pulmonary Disease Active Uni vers embolism embolism 5-21 ity of 00:00: [place] 00 MD Fuentes zimmerman [facility] Stage 1 Stage 1 Disease Active Overview: Univ ers pressure pressure 5-18 Formattin ity of ulcer of ulcer of 00:00: g of this [place] as other site other site 00 note might be Anderso different n from the Cancer original. Center Left ear- stage 1-special procedure technologist related from nasal cannula Tube Tube Disease Active Univers feeding feeding 4-24 ity of diet diet 00:00: [place] 00 MD Fuentes zimmerman [facility] Pneumonia Pneumonia Disease Active Uni vers due to due to 4-22 ity of other other 00:00: [place] Gram-negat Gram-negat 00 MD ceci Dill bacteria bacteria [facility] Sequelae Sequelae Disease Active Unive rs of of 4-11 ity of hyperalime hyperalime 00:[place] ntation ntation 00 MD Dill [facility] Adverse Adverse Disease Active Univers effect of effect of 3-23 ity of glucocorti glucocorti 00:[place] coids and coids and synthetic synthetic Prince rso analogues analogues [facility] Current Current Disease Active Univers use of use of 3-23 ity of insulin insulin 00:00: [place] 00 MD Dill [facility] Anxiety Anxiety Disease Active Univers disorder disorder 3-17 ity of due to a due to a 00:00: [place] general general 00 medical medical Andjaniceo condition condition [facility] Disorder Disorder Disease Active Unive rs of fluid of fluid 3-08 ity of AND/OR AND/OR 00:00: [place] electrolyt electrolyt 00 [facility] Sinus Sinus Disease Active Univers tachycardi tachycardi 3-08 it y of a a 00:00: [place] 00 MD Fuentes zimmerman [facility] Pleuritic Pleuritic Disease Active Uni vers pain pain 2-26 ity of 00:00: [place] 00 MD Fuentes zimmerman [facility] Anemia of Anemia of Disease Recurre Un yakov chronic chronic nce 2-22 ity of disease disease 00:00: [place] 00 MD Fuentes zimmerman [facility] Acute and Acute and Disease Active Uni vers chronic chronic 2-22 ity of respirator [place] y failure y failure 00 with with Fuentes hypoxia hypoxia [facility] Failure to Failure to Disease Active U nivers thrive thrive 2-22 ity of 00:00: [place] 00 MD Fuentes [facility] 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 An derso on on n [facility] Center Dyspnea Dyspnea Disease Active Univers 2-11 ity of 00:00: [place] 00 MD Fuentes zimmerman [facility] Decompensa Decompensa Disease Active U nivers lakhwinder COPD lakhwinder COPD 1-31 ity of with acute with acute 00:[place] exacerbati exacerbati 00 on on Fuentes zimmerman [facility] custodial custodial Disease Recurre Un yakov current current nce 1-31 ity of use of use of 00:00: [place] opiate opiate 00 analgesic analgesic [facility] Small cell Small cell Disease Recurre [...] Univers emphysema emphysema ity of Willis zimmerman [facility] Adjustment Adjustment Disease Recurre Univers disorder disorder nce ity of with mixed with mixed [place] anxiety anxiety and franco Dill depressed depressed n mood mood [facility] Center Chronic Chronic Disease Active Univers pain due pain due ity of to to Willis malignant malignant neoplastic neoplastic An derso disease disease n Cancer Center Slow Slow Disease Active Univers transit transit ity of const[place]ipati [place] on on MD Fuentes zimmerman [facility] Other Other Disease Active Univers psychologi psychologi it y of tr[facility] [place] physical physical stress, stress, Anderso not not n elsewhere elsewhere Canc er classified classified Ce nter Personal Personal Disease Recurre Univ ers history of history of nce it y of COVID-19 COVID-19 Willis zimmerman [facility] Acute Acute Disease Resolve 2021-09-04 2021-09-04 Univers kidney kidney d 8-20 00:00:00 14:37:22 ity of injury due injury due [place] to to 00 hypovolemi hypovolemi An derso a a n [facility] Hypovolemi Hypovolemi Disease Resolve 2021-09-04 2021-09-04 Univers a a d 8 00:00:00 14:36:33 ity of 00:00: [place] 00 MD Fuentes zimmerman [facility] High High Disease Resolve 2021-09-04 2021-09-04 Univers troponin I troponin I d 8 00:00:00 14:35:35 ity of level level 00:00: [place] [facility] Hyperkalem Hyperkalem Disease Resolve 2021-09-04 2021-09-04 Univers ia ia d 02-16 00:00:00 14:36:15 ity of 00:00: [place] 00 MD Dill [facility] Aspergillo Aspergillo Disease Resolve 2021-09-04 2021-09-04 Univers sis with sis with d 10-25 00:00:00 14:36:44 it y of pneumonia pneumonia [place] [facility] Multiple Multiple Disease Resolve 2021-09-04 2021-09-04 Univers lung lung d 10-20 00:00:00 14:36:17 [place]y of abscesses abscesses [place] [facility] Drug Drug Disease Resolve 2021-09-04 2021-09-04 Univers induced induced d 09-19 00:00:00 14:37:13 ity of diabetes diabetes 00:00: [place] mellitus mellitus 00 with with Fuentes hyperglyce hyperglyce n [facility] custodial custodial Disease Resolve 2021-09-04 2021-09-04 Univers current current d 3 00:00:00 14:37:15 ity of use of use of 00:00: [place] systemic systemic 00 [facility] Pneumocyst Pneumocyst Disease Resolve 2021-09-04 2021-09-04 Univers osis osis d 09-04 00:00:00 14:35:43 ity of pneumonia pneumonia [facility]:00: [facility] Cytomegalo Cytomegalo Disease Resolve 2021-09-04 2021-09-04 Univers virus virus d 3-08 00:00:00 14:35:47 ity of infection infection 00:00: s 00 MD Fuentes zimmerman [facility] Diarrhea Diarrhea Disease Resolve 2021-09-04 2021-09-04 Univers d 2-22 00:00:00 14:37:13 ity of 00:00: 00 MD Villegas erasmo [facility] Aspiration Aspiration Disease Resolve 2021-09-04 2021-09-04 Univers into lower into lower d 2-11 00:00:00 14:37:24 ity of respirator respirator [place] y tract y tract 00 MD Villegas erasmo [facility] COVID-19 COVID-19 Disease Resolve 2021-09-04 2021-09-04 Univers d 1-30 00:00:00 14:35:39 ity of 00:00: 00 MD Fuentes zimmerman [facility] Amaurosis Amaurosis Disease Resolve 2021-09-04 2021-09-04 Univers fugax fugax d 4-29 00:00:00 14:36:43 ity of 00:00: 00 MD Fuentes zimmerman [facility] Cancer-rel Cancer-rel Disease Resolve 2021-09-04 2021-09-04 Univers ated ated d 00:00:00 14:37:19 ity of fatigue fatigue Willis zimmerman [facility] Mixed Mixed Disease Resolve 2021-09-04 2021-09-04 Univers infectious infectious d 00:00:00 14:36:17 ity of disease disease Willis zimmerman [facility] Tomography Tomography Disease Resolve 2021-09-04 2021-09-04 Univers - chest - chest d 00:00:00 14:36:37 ity of abnormal abnormal Willis zimmerman [facility] Allergies, Adverse Reactions, Alerts Allergy Allergy Status Severity Reaction(s) Onset Inactive Treating Comm ents Source Name Type Date Date Clinician No Known DA Active U 2019- [facility] Allergie 0-30 [place] 00:[facility]: d 00 [facility] No Known DA Active U 2019- [facility] Allergie 0-30 [place] [facility]: [facility] codeine DA Active MD 2019-0 [facility] 2-13 [place] 00:[facility]: d [facility] codeine DA Active MD rash 2019- [facility] 2-13 [place] 00[facility]: d [facility] codeine DA Active MD 2011- [facility] 0-09 [place] 00:[facility]: d [facility] codeine DA Active MD rash 2011- [facility] 0-09 [place] 00[facility]: d 00 [facility] NO KNOWN Drug Active Univers ALLERGIE Class ity of S [facility] Family History Family Member Diagnosis Comments Start Date Stop Date Source Maternal grandfather Emphysema Univ ersity [facility] Cance r [place] Natural sister Lung cancer [facility] [place] [facility] Social History Social Habit Start Date Stop Date Quantity Comments Source History of tobacco Cigarette Smoker University of [facility], [facility] MD Levi darden [facility] History SDOH University o f Alcohol Frequency [facility] History SDOH University o f Alcohol Std Drinks [facility] History SDOH University o f Alcohol Binge [place] MD Marianela gustafson [facility] Exposure to 2022-09-03 2022-09-13 Not sure University of SARS-CoV-2 (event) 00:00:00 08:17:00 [facility] Cigarettes smoked 2022-09-13 2022-09-13 Univers ity of current (pack per 00:00:00 00:00:00 [facility] ) - Reported Cancer Ce nter Tobacco use and 2022-09-13 2022-09-13 Smokeless Universit y of exposure 00:00:00 00:00:00 tobacco non-user [facility] Alcohol intake 2022-09-13 2022-09-13 Ex-drinker University of 00:00:00 00:00:00 (finding) Willis darden [facility] Alcohol Comment 2020-03-02 2020-03-02 .5 gallon of Univers ity of 00:00:00 00:00:00 vodka daily 15 Willis Ramírez nderson [facility] ago [facility] Sex Ass[birth year] Universit y of 00:00:00 00:00:00 Willis darden [facility] Smoking Status Start Date Stop Date Source Ex-smoker 2022-09-13 00:00:00 2022-09-13 00:00:00 [facility] Medications Ordered Filled Start Stop Current Ordering Indication Dosage Frequency Signature Comments Components Source Medication Medication Date Date Medication? Clinician (SIG) Name Name atorvastati Yes 40mg Take 40 mg Univers n (LIPITOR) 3-17 by mouth ity of 40 mg 11:58: daily. [place] tablet 00 MD Fuentes zimmerman [facility] budesonide Yes severe .25mg Inhale Un yakov (PULMICORT) 3-17 chronic 0.25 mg by ity of 0.25 mg/2 11:58: obstructive nebulizati [place] mL 00 pulmonary on daily. nebulizer disease [facility] solution [facility] umeclidiniu Yes Inhale by U nivers m-vilantero 3-17 mouth. ity of L 62.5-25 11:58: [place] mcg/actuati 00 on dsdv [facility] megestrol Yes 400mg Give 400 Uni vers (MEGACE) 40 3-17 mg per ity of mg/mL 11:58: G-tube. [place] suspension 00 MD Fuentes zimmerman [facility] atorvastati Yes 40mg Take 40 mg Univers n (LIPITOR) 3-17 by mouth ity of 40 mg 11:58: daily. [place] tablet 00 MD Dill [facility] budesonide Yes severe .25mg Inhale Un yakov (PULMICORT) 3-17 chronic 0.25 mg by ity of 0.25 mg/2 11:58: obstructive nebulizati [place] mL 00 pulmonary on daily. nebulizer disease [facility] solution [facility] umeclidiniu Yes Inhale by U nivers m-vilantero 3-17 mouth. ity of L 62.5-25 11:58: [place] mcg/actuati 00 on dsdv [facility] megestrol Yes 400mg Give 400 Uni vers (MEGACE) 40 3-17 mg per ity of mg/mL 11:58: G-tube. [place] suspension 00 MD Dill [facility] atorvastati Yes 40mg Take 40 mg Univers n (LIPITOR) 3-17 by mouth ity of 40 mg 11:58: [facility]. [facility] budesonide Yes severe .25mg Inhale Un yakov (PULMICORT) 3-17 chronic 0.25 mg by ity of 0.25 mg/2 11:58: obstructive nebulizati [place] mL 00 pulmonary on daily. nebulizer disease Anders[facility] solution [facility] Yes Inhale by U nivers mEdenilsonvilantero 3-17 mouth. ity of L 62.5-25 11:58: [place] mcg/actuati 00 MD on dsdv [facility] megestrol Yes 400mg Give 400 Uni vers (MEGACE) 40 3-17 mg per ity of mg/mL 11:58: G-tube. [place] suspension 00 [facility] Eliquis 5 Yes 5mg Take 1 Univer s mg tablet 3-06 tablet (5 ity o f 00:00: mg) by 00 mouth twice Anderso daily. [facility] 5 Yes 5mg Take 1 Univer s mg tablet 3-06 tablet (5 ity o f 00:00: mg) by 00 mouth twice Anderso daily. [facility] 5 Yes 5mg Take 1 Univer s mg tablet 3-06 tablet (5 ity o f 00:00: mg) by [place] 00 mouth twice [facility]. [facility] Yes Inhale by U nivers m-vilantero 2-09 mouth. ity of L 62.5-25 12:33: [place] mcg/actuati 10 MD [facility] Yes Inhale by U nivers m-vilantero 2-09 mouth. ity of L 62.5-25 12:33: [place] mcg/actuati 10 [facility] at[facility] 2021-06 Yes 40mg Take 40 mg Univers n (LIPITOR) 2-09 by mouth ity of 40 mg 12:30: daily. [place] tablet 21 MD Anderso [facility] budesonide 2021-06 Yes severe .25mg Inhale Un yakov (PULMICORT) 2-09 chronic 0.25 mg by ity of 0.25 mg/2 12:30: obstructive nebulizati [place] mL 21 pulmonary on daily. nebulizer disease Anderso solution n [facility] megestrol 2021-06 Yes 400mg Give 400 Uni vers (MEGACE) 40 2-09 mg per ity of mg/mL 12:30: G-tube. [place] suspension 21 MD Fuentes zimmerman [facility] atorvastati 2021-06 Yes 40mg Take 40 mg Univers n (LIPITOR) 2-09 by mouth ity of 40 mg 12:30: daily. [place] tablet 21 MD Fuentes zimmerman [facility] budesonide 2021-06 Yes severe .25mg Inhale Un yakov (PULMICORT) 2-09 chronic 0.25 mg by ity of 0.25 mg/2 12:30: obstructive nebulizati [place] mL 21 pulmonary on daily. nebulizer disease Anderso solution n [facility] megestrol 2021-06 Yes 400mg Give 400 Uni vers (MEGACE) 40 2-09 mg per ity of mg/mL 12:30: G-tube. [place] suspension 21 MD Fuentes zimmerman [facility] HYDROcodone 2021-06- No Small cell 1{tbl} Take 1 Univers -acetaminop 207-08 carcinoma, tablet by ity of hen ([place]) 00:00: 05:59 NOS of mouth [place] 5 mg-325 mg 00 :00 upper lobe, every 8 MD per tablet lung (eight) Bakari o <Right> hours as n needed for Cancer moderate Center pain for up to 30 days. HYDROcodone 2021-06- No Small cell 1{tbl} Take 1 Univers -acetaminop 2-02 28- carcinoma, tablet by ity of hen ([place]) 00:00: 05:59 [place]OS of mouth [place] 5 mg-325 mg 00 :00 upper lobe, every 8 MD per tablet lung (eight) Bakari o <Right> hours as n needed for Cancer moderate Center pain for up to 30 days. HYDROcodone 2021-06- No Small cell 1{tbl} Take 1 Univers -acetaminop 2-02 28- carcinoma, tablet by ity of hen ([place]) 00:00: 05:59 NOS of mouth [place] 5 mg-325 mg 00 :00 upper lobe, every 8 MD per tablet lung (eight) Bakari o <Right> hours as n needed for Cancer moderate Center pain for up to 30 days. HYDROcodone 2021-06- No Small cell 1{tbl} Take 1 Univers -acetaminop 08-08 carcinoma, tablet by ity of hen ([place]) 00:00: 05:59 NOS of mouth [place] 5 mg-325 mg 00 :00 upper lobe, every 8 MD per tablet lung (eight) Bakari o <Right> hours as n needed for Cancer moderate Center pain for up to 30 days. HYDROcodone 2021-06- No Small cell 1{tbl} Take 1 Univers -acetaminop 08-08 carcinoma, tablet by ity of hen ([place]) 00:00: 05:59 [place]OS of mouth [place] [...] <Right> daily for n tablet 10 days. [facility] amoxicillin 2021-06- No Small cell 875mg Take 1 Univers -clavulanat 08-08 carcinoma, tablet ity of e 00:00: 05:59 NOS of (875 mg) [place] (AUGMENTIN) 00 :00 upper lobe, by mouth 875 mg-125 lung twice Anderso mg per <Right> daily for n tablet 10 days. [facility] amoxicillin 2021-06- No Small cell 875mg Take 1 Univers -clavulanat 08-08 carcinoma, tablet ity of e 00:00: 05:59 NOS of (875 mg) [place] (AUGMENTIN) 00 :00 upper lobe, by mouth 875 mg-125 lung twice Anderso mg per <Right> daily for n tablet 10 days. [facility] amoxicillin 2021-06- No Small cell 875mg Take 1 Univers -clavulanat 08-08 carcinoma, tablet ity of e 00:00: 05:59 NOS of (875 mg) [place] (AUGMENTIN) 00 :00 upper lobe, by mouth 875 mg-125 lung twice Anderso mg per <Right> daily for n tablet 10 days. [facility] amoxicillin 2021-06- No Small cell 875mg Take 1 Univers -clavulanat 08-08 carcinoma, tablet ity of e 00:00: 05:59 NOS of (875 mg) [place] (AUGMENTIN) 00 :00 upper lobe, by mouth 875 mg-125 lung twice Anderso mg per <Right> daily for n tablet 10 days. [facility] midodrine 2021-06 Yes 5mg Take 1 Univer s (PROAMATINE 1-14 tablet (5 ity of ) 5 mg 00:00: mg) by [place] tablet 00 mouth MD twice Anderso daily. n [facility] midodrine 2021-06 Yes 5mg Take 1 Univer s (PROAMATINE 1-14 tablet (5 ity of ) 5 mg 00:00: mg) by [place] tablet 00 mouth MD twice Anderso daily. [facility] midodrine 2021-06 Yes 5mg Take 1 Univer s (PROAMATINE 1-14 tablet (5 ity of ) 5 mg 00:00: mg) by [place] tablet 00 mouth MD twice Anderso daily. [facility] midodrine 2021-06 Yes 5mg Take 1 Univer s (PROAMATINE 1-14 tablet (5 ity of ) 5 mg 00:00: mg) by [place] tablet 00 mouth MD twice Anderso daily. [facility] midodrine 2021-06 Yes 5mg Take 1 Univer s (PROAMATINE 1-14 tablet (5 ity of ) 5 mg 00:00: mg) by [place] tablet 00 mouth MD twice Anderso daily. [facility] nystatin 2021-06 Yes 5mL Take 5 mL Univ ers (MYCOSTATIN 1-03 (500,000 ity of ) 100,000 00:00: Units) by [place] units/mL 00 mouth MD suspension every 8 Bakari o (eight) n hours. [facility] nystatin 2021-06 Yes [id number] Take 5 mL U nivers (MYCOSTATIN 1-03 (500,000 ity of ) 100,000 00:00: Units) by [place] units/mL 00 mouth MD suspension every 8 Bakari o (eight) n hours. [facility] nystatin 2021-06 Yes [id number] Take 5 mL U nivers (MYCOSTATIN 1-03 (500,000 ity of ) 100,000 00:00: Units) by [place] units/mL 00 mouth MD suspension every 8 Bakari o (eight) n hours. [facility] nystatin 2021-06 Yes 5mL Take 5 mL Univ ers (MYCOSTATIN 1-03 (500,000 ity of ) 100,000 00:00: Units) by [place] units/mL 00 mouth MD suspension every 8 Bakari o (eight) n hours. [facility] nystatin 2021-06 Yes 5mL Take 5 mL Univ ers (MYCOSTATIN 1-03 (500,000 ity of ) 100,000 00:00: Units) by [place] units/mL 00 mouth MD suspension every 8 Bakari o (eight) n hours. [facility] QUEtiapine Yes Anxiety 25mg Take 1 [...] Anxiety 25mg Take 1 Un yakov (SEROquel) - disorder tablet (25 ity of 25 mg [...] Center non-violen t agitation (anxiety sleep). QUEtiapine 0 Yes Anxiety 25mg Take 1 Un yakov [...] Anxiety 25mg Take 1 Un yakov (SEROquel) - disorder tablet (25 ity of 25 mg 00:00: due to a mg) by [place] tablet 00 general mouth MD medical every 6 Anderso condition (six) n hours as Cancer needed for Center non-violen t agitation (anxiety sleep). QUEtiapine 0 2021- No Anxiety 25mg Take 1 U nivers (SEROquel) 12-01 disorder tablet (25 ity of 25 mg 00:00: 00:00 due to a mg) by [place] tablet 00 :00 general mouth MD medical every 6 Anderso condition (six) n hours as Cancer needed for Center non-violen t agitation (anxiety sleep). QUEtiapine 2021-0 2021- No Anxiety 25mg Take 1 U [...] Anxiety 25mg Take 1 U nivers (SEROquel) 6 07- disorder tablet (25 ity of 25 mg [...] Bakari o specified n Cancer Center levoFLOXaci 2022-0 Yes Upper 500mg Take 1 Un yakov n 5-06 respiratory tablet ity of (Levaquin) 00:00: infection, (500 mg) [place] 500 mg 00 not by mouth MD tablet otherwise daily. Bakari o specified n [facility] levoFLOXaci Yes Upper 500mg Take 1 Un yakov n 5-06 respiratory tablet ity of (Levaquin) 00:00: infection, (500 mg) [place] 500 mg 00 not by mouth MD tablet otherwise daily. Bakari o specified [facility] fluconazole 2021- No Candidal 200mg Take 1 Univers (Diflucan) 10-25 05-03 esophagitis tablet ity of 200 mg 00:00: 04:59 (200 mg) [place] tablet 00 :00 by mouth MD daily for Anderso 4 days. [facility] fluconazole 2021- No Candidal 200mg Take 1 Univers (Diflucan) 10-25- esophagitis tablet ity of 200 mg 00:00: 04:59 (200 mg) [place] tablet 00 :00 by mouth MD daily for Anderso 4 days. [facility] fluconazole 2021- No Candidal 200mg Take 1 Univers (Diflucan) 10-25-03 esophagitis tablet ity of 200 mg 00:00: 04:59 (200 mg) [place] tablet 00 :00 by mouth MD daily for Anderso 4 days. [facility] fluconazole 2021- No Candidal 200mg Take 1 Univers (Diflucan) 10-25 05-03 esophagitis tablet ity of 200 mg 00:00: 04:59 (200 mg) [place] tablet 00 :00 by mouth MD daily for Anderso 4 days. [facility] fluconazole 2021- No Candidal 200mg Take 1 Univers (Diflucan) 10-25 05-03 esophagitis tablet ity of 200 mg 00:00: 04:59 (200 mg) [place] tablet 00 :00 by mouth MD daily for Anderso 4 days. [facility] fluconazole 2021- No Candidal 200mg Take 1 Univers (Diflucan) 10-25 05-03 esophagitis tablet ity of 200 mg 00:00: 04:59 (200 mg) [place] tablet 00 :00 by mouth MD daily for Anderso 4 days. [facility] fluconazole 2021- No Candidal 200mg Take 1 Univers (Diflucan) 10-25 05-03 esophagitis tablet ity of 200 mg 00:00: 04:59 (200 mg) [place] tablet 00 :00 by mouth MD daily for Anderso 4 days. n [facility] 2021- No 12.5mg Take 12.5 [place] [...] [place] 03 :00 [place] Fuentes zimmerman [facility] 2021- No 12.5mg Take 12.5 Univers [...] [place] 03 :00 [place] Fuentes zimmerman [facility] 2021- No 12.5mg Take 12.5 Univers [...] [place] 03 :00 [place] Fuentes zimmerman [facility] 2021- No 12.5mg Take 12.5 Univers e 4-27 04-27 mg by ity of (PHENERGAN) 18:27: 00:00 [place] 12.5 mg 03 :00 every 6 MD tablet (six) Anderso hours as n needed. Cancer Center aspirin 81 2021- No 81mg Take 81 mg Univers mg EC -24 10- by mouth ity of tablet 18:27: 00:00 [place] 03 [place]00 [place] Fuentes zimmerman [facility] 2021- No 12.5mg Take 12.5 Univers e 4-24 10-27 mg by ity of (PHENERGAN) 18:27: 00:00 [place] 12.5 mg 03 :00 every 6 MD tablet (six) [place] hours as n needed. Cancer Center aspirin 81 2021- No 81mg Take 81 mg Univers mg EC -24 10-27 by mouth ity of tablet 18:27: 00:00 [place]00 [place] Fuentes zimmerman [facility] 2021- No 12.5mg Take 12.5 Univers e -24 10-27 mg by ity of (PHENERGAN) 18:27: 00:00 [place] 12.5 mg 03 :00 every 6 MD tablet (six) [place] hours as n needed. Cancer Center aspirin 81 0 2021- No 81mg Take 81 mg Univers mg EC -24 10- by mouth ity of tablet 18:27: 00:00 [place] 03 [place] [facility] No 12.5mg Take 12.5 Univers e -24 10-27 mg by ity of (PHENERGAN) 18:27: 00:00 [place] 12.5 mg 03 :00 every 6 MD tablet (six) [place] hours as n needed. Cancer Center aspirin 81 0 2021- No 81mg Take 81 mg Univers mg EC -24 10-27 by mouth ity of tablet 18:27: 00:00 [place] 03 :00 [place] Fuentes zimmerman [facility] atorvastati Yes 40mg Take 40 mg Univers n (LIPITOR) 4-27 by mouth ity of 40 mg 18:26: daily. 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 ity of L 62.5-25 18:26: [place] mcg[facility]uati [facility] Give 400 Uni vers (MEGACE) 40 4-27 mg per ity of mg/mL 18:26: G-tube. [place] suspension 55 [facility] atorvastati Yes 40mg Take 40 mg Univers n (LIPITOR) 4-27 by mouth ity of 40 mg 18:26: daily. 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 [facility] Yes Inhale by U nivers m-vilantero 4-27 mouth. ity of L 62.5-25 18:26: [place] mcg/actuati [facility] 400mg Give 400 Uni vers (MEGACE) 40 4-27 mg per ity of mg/mL 18:26: G-tube. [place] suspension 55 [facility] atorvastati Yes 40mg Take 40 mg Univers n (LIPITOR) 4-27 by mouth ity of 40 mg 18:26: daily. 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 ity of L 62.5-25 18:26: [place] mcg/actuati 55 MD on dsdv [facility] megestrol Yes 400mg Give 400 Uni vers (MEGACE) 40 -27 mg per ity of mg/mL 18:26: G-tube. [place] suspension 55 MD Fuentes zimmerman [facility] ipratropium Yes Pneumocysto 3mL [...] Yes Adjustment 75mg Take 3 Univers (SEROquel) -27 disorder tablets it y of 25 mg 00:00: with mixed (75 mg) by [place] tablet 00 anxiety and mouth at MD depressed bedtime. Bakari o mood n [facility] Center Ventolin Yes Pneumonia 1{puff} Inhale 1 Univers HFA 90 27 due to puff by ity of mcg/actuati [...] mg 00:00: with mixed (75 mg) by [place] tablet 00 anxiety and mouth at MD [...] Yes Pneumonia 600mg Take 1 Univers (MUCINEX) 27 due to tablet ity of 600 mg [...] wheezing Center or shortness of breath. amoxicillin No Upper 875mg Take 1 U nivers -clavulanat 10-11 respiratory tablet ity of e 00:00: 00:00 infection, (875 mg[place] (Augmentin) 00 :00 not by mouth 875 mg-125 otherwise twice And erso mg per specified daily for n tablet 7 days. [facility] amoxicillin No Upper 875mg Take 1 U nivers -clavulanat 10-11 respiratory tablet ity of e 00:00: 00:00 infection, (875 mg) [place] (Augmentin) 00 :00 not by mouth 875 mg-125 otherwise twice And erso mg per specified daily for n tablet 7 days. [facility] amoxicillin 2021- No Upper 875mg Take 1 U nivers -clavulanat 10-11 respiratory tablet ity of e 00:00: 00:00 infection, (875 mg) [place] (Augmentin) 00 :00 not by mouth 875 mg-125 otherwise twice And erso mg per specified daily for n tablet 7 days. [facility] amoxicillin 2021- No Upper 875mg Take 1 U nivers -clavulanat 10-11 respiratory tablet ity of e 00:00: 00:00 infection, (875 mg) [place] (Augmentin) 00 :00 not by mouth 875 mg-125 otherwise twice And erso mg per specified daily for n tablet 7 days. [facility] amoxicillin 2021- No Upper 875mg Take 1 U nivers -clavulanat 10-11 respiratory tablet ity of e 00:00: 00:00 infection, (875 mg) [place] (Augmentin) 00 :00 not by mouth 875 mg-125 otherwise twice And erso mg per specified daily for n tablet 7 days. [facility] amoxicillin 2021- No Upper 875mg Take 1 U nivers -clavulanat 10-11 respiratory tablet ity of e 00:00: 00:00 infection, (875 mg) [place] (Augmentin) 00 :00 not by mouth 875 mg-125 otherwise twice And erso mg per specified daily for n tablet 7 days. [facility] amoxicillin 2021- No Upper 875mg Take 1 U nivers -clavulanat 10-11 respiratory tablet ity of e 00:00: 00:00 infection, (875 mg) [place] (Augmentin) 00 :00 not by mouth 875 mg-125 otherwise twice And erso mg per specified daily for n tablet 7 days. [facility] amoxicillin 2021- No Decompensat 875mg Take 1 Univers -clavulanat 10-10 ed COPD tablet it y of e 00:00: 00:00 with acute (875 mg) [place] (Augmentin) 00 :00 exacerbatio by mouth 875 mg-125 n twice [place] mg per daily for n tablet 5 days. [facility] amoxicillin 2021- No Decompensat 875mg Take 1 Univers -clavulanat 10-10 ed COPD tablet it y of e 00:00: 00:00 with acute (875 mg) [place] (Augmentin) 00 :00 exacerbatio by mouth 875 mg-125 n twice [place] mg per daily for n tablet 5 days. [facility] amoxicillin 2021- No Decompensat 875mg Take 1 Univers -clavulanat 10-10 ed COPD tablet it y of e 00:00: 00:00 with acute (875 mg) [place] (Augmentin) 00 :00 exacerbatio by mouth 875 mg-125 n twice [place] mg per daily for n tablet 5 days. [facility] amoxicillin 2021- No Decompensat 875mg Take 1 Univers -clavulanat 10-10 ed COPD tablet it y of e 00:00: 00:00 with acute (875 mg) [place] (Augmentin) 00 :00 exacerbatio by mouth 875 mg-125 n twice [place] mg per daily for n tablet 5 days. [facility] amoxicillin 2021- No Decompensat 875mg Take 1 Univers -clavulanat 10-10 ed COPD tablet it y of e 00:00: 00:00 with acute (875 mg) [place] (Augmentin) 00 :00 exacerbatio by mouth 875 mg-125 n twice [place] mg per daily for n tablet 5 days. [facility] amoxicillin 2021- No Decompensat 875mg Take 1 Univers -clavulanat 10-10 ed COPD tablet it y of e 00:00: 00:00 with acute (875 mg) [place] (Augmentin) 00 :00 exacerbatio by mouth 875 mg-125 n twice [place] mg per daily for n tablet 5 days. [facility] amoxicillin 2021- No Decompensat 875mg Take 1 Univers -clavulanat 10-10 ed COPD tablet it y of e 00:00: 00:00 with acute (875 mg) [place] (Augmentin) 00 :00 exacerbatio by mouth 875 mg-125 n twice [place] mg per daily for n tablet 5 days. [facility] acetaminoph Yes Neoplasm 1{tbl} Take 1 Univers en-codeine 3-11 related tablet by i ty of (TYLENOL 00:00: pain mouth [place] #3) 300 00 (acute) every 6 MD mg-30 mg (chronic) (six) [place] so tablet hours as n needed for Cancer mild pain Center or moderate pain (Marj Garza APN). acetaminoph 2022-0 Yes Neoplasm 1{tbl} Take 1 Univers en-codeine 3-11 related tablet by i ty of (TYLENOL 00:00: pain mouth [place] #3) 300 00 (acute) every 6 MD mg-30 mg (chronic) (six) [place] so tablet hours as n needed for Cancer mild pain Center or moderate pain (Marj Garza APN). acetaminoph 2-0 Yes Neoplasm 1{tbl} Take 1 Univers en-codeine 3-11 related tablet by i ty of (TYLENOL 00:00: pain mouth [place] #3) 300 00 (acute) every 6 MD mg-30 mg (chronic) (six) [place] so tablet hours as n needed for Cancer mild pain Center or moderate pain (Marj Garza APN). acetaminoph 2-0 Yes Neoplasm 1{tbl} Take 1 Univers en-codeine 3-11 related tablet by i ty of (TYLENOL 00:00: pain mouth [place] #3) 300 00 (acute) every 6 MD mg-30 mg (chronic) (six) [place] so tablet hours as n needed for Cancer mild pain Center or moderate pain (Marj Garza APN). acetaminoph 2-0 Yes Neoplasm 1{tbl} Take 1 Univers en-codeine 3-11 related tablet by i ty of (TYLENOL 00:00: pain mouth [place] #3) 300 00 (acute) every 6 MD mg-30 mg (chronic) (six) [place] so tablet hours as n needed for Cancer mild pain Center or moderate pain (Marj Garza APN). acetaminoph 2022-0 Yes Neoplasm 1{tbl} Take 1 Univers en-codeine 3-11 related tablet by i ty of (TYLENOL 00:00: pain mouth [place] #3) 300 00 (acute) every 6 MD mg-30 mg (chronic) (six) [place] so tablet hours as n needed for Cancer mild pain Center or moderate pain (Marj Garza APN). acetaminoph 2022-0 Yes Neoplasm 1{tbl} Take 1 Univers en-codeine 3-11 related tablet by i ty of (TYLENOL 00:00: pain mouth [place] #3) 300 00 (acute) every 6 MD mg-30 mg (chronic) (six) [place] so tablet hours as n needed for Cancer mild pain Center or moderate pain (Marj Garza APN). acetaminoph Yes Neoplasm 1{tbl} Take 1 Univers en-codeine 09-07 related tablet by i ty of (TYLENOL [...] Center non-violen t agitation. amoxicillin 2021- No [facility] 875mg Take 1 Univers -clavulanat 09-07 acquired tablet i ty of e 00:00: 04:59 pneumonia (875 mg) [place] (AUGMENTIN) 00 :00 by mouth MD 875 mg-125 every 12 [place] so mg per (twelve) n tablet hours for Cancer 3 days. [place] amoxicillin 2021- No [facility] 875mg Take 1 Univers -clavulanat 09-07 acquired tablet i ty of e 00:00: 04:59 pneumonia (875 mg) [place] (AUGMENTIN) 00 :00 by mouth 875 mg-125 every 12 [place] so mg per (twelve) n tablet hours for Cancer 3 days. [place] amoxicillin 2021- No [facility] 875mg Take 1 Univers -clavulanat 09-07 acquired tablet i ty of e 00:00: 04:59 pneumonia (875 mg) [place] (AUGMENTIN) 00 :00 by mouth MD 875 mg-125 every 12 [place] so mg per (twelve) n tablet hours for Cancer 3 days. [place] amoxicillin 2021- No [facility] 875mg Take 1 Univers -clavulanat 09-07 acquired tablet i ty of e 00:00: 04:59 pneumonia (875 mg) [place] (AUGMENTIN) 00 :00 by mouth MD 875 mg-125 every 12 [place] so mg per (twelve) n tablet hours for Cancer 3 days. [place] amoxicillin 2021- No [facility] 875mg Take 1 Univers -clavulanat 09-07 acquired tablet i ty of e 00:00: 04:59 pneumonia (875 mg) [place] (AUGMENTIN) 00 :00 by mouth MD 875 mg-125 every 12 [place] so mg per (twelve) n tablet hours for Cancer 3 days. [place] amoxicillin [id number] 875mg Take 1 Univers -clavulanat 09-07 acquired tablet i ty of e 00:00: 00:00 pneumonia (875 mg) [place] (AUGMENTIN) 00 :00 by mouth MD 875 mg-125 every 12 [place] so mg per (twelve) n tablet hours for Cancer 3 days. [place] amoxicillin 2021- No [facility] 875mg Take 1 Univers -clavulanat 09-07 acquired tablet i ty of e 00:00: 00:00 pneumonia (875 mg) [place] (AUGMENTIN) 00 :00 by mouth 875 mg-125 every 12 [place] so mg per (twelve) n tablet hours for Cancer 3 days. [place] amoxicillin 2021- No [facility] 875mg Take 1 Univers -clavulanat 09-07 acquired tablet i ty of e 00:00: 00:00 pneumonia (875 mg) [place] (AUGMENTIN) 00 :00 by mouth MD 875 mg-125 every 12 [place] so mg per (twelve) n tablet hours for Cancer 3 days. [place] amoxicillin [id number] [facility] 875mg Take 1 Univers -clavulanat 09-07 acquired tablet i ty of e 00:00: 00:00 pneumonia (875 mg) [place] (AUGMENTIN) 00 :00 by mouth MD 875 mg-125 every 12 [place] so mg per (twelve) n tablet hours for Cancer 3 days. [place] amoxicillin 2021 No [facility] 875mg Take 1 Univers -clavulanat 09-07 acquired tablet i ty of e 00:00: 00:00 pneumonia (875 mg) [place] (AUGMENTIN) 00 :00 by mouth MD 875 mg-125 every 12 [place] so mg per (twelve) n tablet hours for Cancer 3 days. [place] amoxicillin [id number] 875mg Take 1 Univers -clavulanat 09-07 acquired tablet i ty of e 00:00: 00:00 pneumonia (875 mg) [place] (AUGMENTIN) 00 :00 by mouth MD 875 mg-125 every 12 [place] so mg per (twelve) n tablet hours for Cancer 3 days. [place] amoxicillin [id number] 875mg Take 1 Univers -clavulanat 09-07 acquired tablet i ty of e 00:00: 00:00 pneumonia (875 mg) [place] (AUGMENTIN) 00 :00 by mouth MD 875 mg-125 every 12 [place] so mg per (twelve) n tablet hours for Cancer 3 days. [place] amoxicillin [id number] 875mg Take 1 Univers -clavulanat 09-07 acquired tablet i ty of e 00:00: 00:00 pneumonia (875 mg) [place] (AUGMENTIN) 00 :00 by mouth MD 875 mg-125 every 12 [place] so mg per (twelve) n tablet hours for Cancer 3 days. [place] amoxicillin [id number] 875mg Take 1 Univers -clavulanat 09-07 acquired tablet i ty of e 00:00: 00:00 pneumonia (875 mg) [place] (AUGMENTIN) 00 :00 by mouth MD 875 mg-125 every 12 [place] so mg per (twelve) n tablet hours for Cancer 3 days. [place] amoxicillin [id number] 875mg Take 1 Univers -clavulanat 09-07 acquired tablet i ty of e 00:00: 00:00 pneumonia (875 mg) [place] (AUGMENTIN) 00 :00 by mouth MD 875 mg-125 every 12 [place] so mg per (twelve) n tablet hours for Cancer 3 days. Center HYDROcodone 2021- No Adjustment 1{tbl} Take 1 Univers -acetaminop 2-19 03-11 disorder tablet by ity of hen (Fiberstar) 00:00: 00:00 with mixed mouth [place] 5 mg-325 mg 00 :00 anxiety and every 6 MD per tablet depressed (six) And erso mood hours as n needed for Cancer moderate Center pain for up to 30 days. HYDROcodone 2021- No Adjustment 1{tbl} Take 1 Univers -acetaminop 2-19 -11 disorder tablet by ity of Advaxis (Fiberstar) 00:00: 00:00 with mixed mouth [place] 5 mg-325 mg 00 :00 anxiety and every 6 MD per tablet depressed (six) And erso mood hours as n needed for Cancer moderate Center pain for up to 30 days. HYDROcodone 2021- No Adjustment 1{tbl} Take 1 Univers -acetaminop 2-19 -11 disorder tablet by ity of Advaxis (Fiberstar) 00:00: 00:00 with mixed mouth [place] 5 mg-325 mg 00 :00 anxiety and every 6 MD per tablet depressed (six) And erso mood hours as n needed for Cancer moderate Center pain for up to 30 days. HYDROcodone 2021- No Adjustment 1{tbl} Take 1 Univers -acetaminop 2-19 -11 disorder tablet by ity of Advaxis (Fiberstar) 00:00: 00:00 with mixed mouth [place] 5 mg-325 mg 00 :00 anxiety and every 6 MD per tablet depressed (six) And erso mood hours as n needed for Cancer moderate Center pain for up to 30 days. HYDROcodone 2021- No Adjustment 1{tbl} Take 1 Univers -acetaminop 2-19 03-11 disorder tablet by ity of hen (Fiberstar) 00:00: 00:00 with mixed mouth [place] 5 mg-325 mg 00 :00 anxiety and every 6 MD per tablet depressed (six) And erso mood hours as n needed for Cancer moderate Center pain for up to 30 days. QUEtiapine 2021- No Adjustment 75mg Take 3 Univers (SEROquel) 2-15 04-27 disorder tablets i ty of 25 mg 00:00: 00:00 with mixed (75 mg) by [place] tablet 00 :00 anxiety and mouth at [place] depressed bedtime. [facility] QUEtiapine 2021- No Adjustment 75mg Take 3 Univers (SEROquel) 08-14 disorder tablets i ty of 25 mg 00:00: 00:00 with mixed (75 mg) by [place] tablet 00 :00 anxiety and mouth at [place] depressed bedtime. [facility] QUEtiapine 2021- No Adjustment 75mg Take 3 Univers (SEROquel) 08-14 disorder tablets i ty of 25 mg 00:00: 00:00 with mixed (75 mg) by [place] tablet 00 :00 anxiety and mouth at [place] depressed bedtime. [facility] QUEtiapine 2021- No Adjustment 75mg Take 3 Univers (SEROquel) 08-14 disorder tablets i ty of 25 mg 00:00: 00:00 with mixed (75 mg) by [place] tablet 00 :00 anxiety and mouth at [place] depressed bedtime. [facility] QUEtiapine 2021- No Adjustment 75mg Take 3 Univers (SEROquel) 08-14 disorder tablets i ty of 25 mg 00:00: 00:00 with mixed (75 mg) by [place] tablet 00 :00 anxiety and mouth at [place] depressed bedtime. [facility] QUEtiapine 2021- No Adjustment 75mg Take 3 Univers (SEROquel) 08-14 disorder tablets i ty of 25 mg 00:00: 00:00 with mixed (75 mg) by [place] tablet 00 :00 anxiety and mouth at [place] depressed bedtime. [facility] QUEtiapine 2021- No Adjustment 75mg Take 3 Univers (SEROquel) 08-14 disorder tablets i ty of 25 mg 00:00: 00:00 with mixed (75 mg) by [place] tablet 00 :00 anxiety and mouth at [place] depressed bedtime. [facility] HYDROcodone 2021- No Adjustment 1{tbl} Take 1 Univers -acetaminop 08-14 disorder tablet by ity of hen (Fiberstar) 00:00: 00:00 with mixed mouth [place] 5 mg-325 mg 00 :00 anxiety and every 6 MD per tablet depressed (six) And erso mood hours as n needed for Cancer moderate Center pain for up to 30 days. HYDROcodone 2021- No Adjustment 1{tbl} Take 1 Univers -acetaminop 2-15 -19 disorder tablet by ity of hen (Methow) 00:00: 00:00 with mixed mouth [place] 5 mg-325 mg 00 :00 anxiety and every 6 MD per tablet depressed (six) And erso mood hours as n needed for Cancer moderate Center pain for up to 30 days. HYDROcodone 2021- No Adjustment 1{tbl} Take 1 Univers -acetaminop 2-15 -19 disorder tablet by ity of hen ([place]ow) 00:00: 00:00 with mixed mouth [place] 5 mg-325 mg 00 :00 anxiety and every 6 MD per tablet depressed (six) And erso mood hours as n needed for Cancer moderate Center pain for up to 30 days. 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[place] tablet 00 upper lobe, MOUTH MD lung TWICE [place] <Right> DAILY n Cancer Center 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) BY [place] tablet 00 upper lobe, MOUTH MD lung TWICE [place] <Right> DAILY n Cancer Center 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) BY [place] tablet 00 upper lobe, MOUTH MD lung TWICE [place] <Right> 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, TABLET(10 ity of 10 mg 00:00: NOS of MG) BY [place] tablet 00 upper lobe, MOUTH MD lung TWICE [place] <Right> [facility]ILY [facility]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, TABLET(10 ity of 10 mg 00:00: NOS of MG) BY [place] tablet 00 upper lobe, MOUTH MD lung TWICE [place] <Right> [facility]ILY [facility]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, TABLET(10 ity of 10 mg 00:00: NOS of MG) BY [place] tablet 00 upper lobe, MOUTH MD lung TWICE [place] <Right> [facility]ILY [facility]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, TABLET(10 ity of 10 mg 00:00: NOS of MG) BY [place] tablet 00 upper lobe, MOUTH MD lung TWICE [place] <Right> DAILY [facility] 2021- No Small cell 5 [...] ity of (PROTONIX) 00:00: respiratory MG) BY [place] 40 mg EC 00 tract MOUTH MD tablet DAILY [facility] pantoprazol Yes Aspiration TAKE 1 Univers e 1-28 into lower TABLET(40 ity of (PROTONIX) 00:00: respiratory MG) BY [place] 40 mg EC 00 tract MOUTH MD tablet DAILY [facility] pantoprazol Yes Aspiration TAKE 1 Univers e 1-28 into lower TABLET(40 ity of (PROTONIX) 00:00: respiratory MG) BY [place] 40 mg EC 00 tract MOUTH MD tablet DAILY [facility] pantoprazol Yes Aspiration TAKE 1 Univers e 1-28 into lower TABLET(40 ity of (PROTONIX) 00:00: respiratory MG) BY [place] 40 mg EC 00 tract MOUTH MD tablet DAILY [facility] pantoprazol Yes Aspiration TAKE 1 Univers e 1-28 into lower TABLET(40 ity of (PROTONIX) 00:00: respiratory MG) BY [place] 40 mg EC 00 tract MOUTH MD tablet DAILY [facility] pantoprazol Yes Aspiration TAKE 1 Univers e 1-28 into lower TABLET(40 ity of (PROTONIX) 00:00: respiratory MG) BY [place] 40 mg EC 00 tract MOUTH MD tablet DAILY [facility] pantoprazol Yes Aspiration TAKE 1 Univers e 1-28 into lower TABLET(40 ity of (PROTONIX) 00:00: respiratory MG) BY [place] 40 mg EC 00 tract MOUTH MD tablet DAILY [facility] pantoprazol Yes Aspiration TAKE 1 Univers e 1-28 into lower TABLET(40 ity of (PROTONIX) 00:00: respiratory MG) BY [place] 40 mg EC 00 tract MOUTH MD tablet DAILY [facility] QUEtiapine 2021- No Adjustment 75mg Take 3 Univers (SEROquel) 07-11 disorder tablets i ty of 25 mg 00:00: 00:00 with mixed (75 mg) by [place] tablet 00 :00 anxiety and mouth at MD depressed bedtime. [facility] QUEtiapine 2021- No Adjustment 75mg Take 3 Univers (SEROquel) 07-11 disorder tablets i ty of 25 mg 00:00: 00:00 with mixed (75 mg) by [place] tablet 00 :00 anxiety and mouth at MD depressed bedtime. [facility] QUEtiapine 2021- No Adjustment 75mg Take 3 Univers (SEROquel) 07-11 disorder tablets i ty of 25 mg 00:00: 00:00 with mixed (75 mg) by [place] tablet 00 :00 anxiety and mouth at MD depressed bedtime. [facility] QUEtiapine 2021- No Adjustment 75mg Take 3 Univers (SEROquel) 07-11 disorder tablets i ty of 25 mg 00:00: 00:00 with mixed (75 mg) by [place] tablet 00 :00 anxiety and mouth at MD depressed bedtime. [facility] pantoprazol 2021- No Aspiration 40mg Take 1 Univers e 07-11 into lower tablet (40 it y of (PROTONIX) 00:00: 00:00 respiratory mg) by [place] 40 mg EC 00 :00 tract mouth MD tablet daily. [facility] pantoprazol 2021- No Aspiration 40mg Take 1 Univers e 07-11 into lower tablet (40 it y of (PROTONIX) 00:00: 00:00 respiratory mg) by [place] 40 mg EC 00 :00 tract mouth MD tablet daily. [facility] pantoprazol 2021- No Aspiration 40mg Take 1 Univers e 07-11 into lower tablet (40 it y of (PROTONIX) 00:00: 00:00 respiratory mg) by [place] 40 mg EC 00 :00 tract mouth MD tablet daily. [facility] pantoprazol 2021- No Aspiration 40mg Take 1 Univers e 07-11 into lower tablet (40 it y of (PROTONIX) 00:00: 00:00 respiratory mg) by [place] 40 mg EC 00 :00 tract mouth MD tablet daily. [facility] OLANZapine 2021- No Insomnia, 2.5mg Take [...] mg per specified daily. 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 [place] amoxicillin 2020-06- No Upper 875mg Take 1 U nivers -clavulanat 15 respiratory tablet ity of e 00:00: 00:00 infection, (875 mg) [place] (Augmentin) 00 :00 not by mouth MD 875 mg-125 otherwise twice And erso mg per specified daily. 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 [place] amoxicillin 2020-06- No Upper 875mg Take 1 U nivers -clavulanat --15 respiratory tablet ity of e 00:00: 00:00 infection, (875 mg) [place] (Augmentin) 00 :00 not by mouth MD 875 mg-125 otherwise twice And erso mg per specified daily. 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 [place] amoxicillin 2020-06- No Upper 875mg Take 1 U nivers -clavulanat -15 respiratory tablet ity of e 00:00: 00:00 infection, (875 mg) [place] (Augmentin) 00 :00 not by mouth MD 875 mg-125 otherwise twice And erso mg per specified daily. 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 [place] amoxicillin 2020-06- No Upper 875mg Take 1 U nivers -clavulanat 2-13 - respiratory tablet ity of e 00:00: 00:00 infection, (875 mg) [place] (Augmentin) 00 :00 not by mouth MD 875 mg-125 otherwise twice And erso mg per specified daily. n tablet Cancer [place] amoxicillin 2020-06- No Upper 875mg Take 1 U nivers -clavulanat 2-13 -29 respiratory tablet ity of e 00:00: 00:00 infection, (875 mg) [place] (Augmentin) 00 :00 not by mouth MD 875 mg-125 otherwise twice And erso mg per specified daily. n tablet [facility] amoxicillin 2020-06- Upper 875mg Take 1 U nivers -clavulanat [...] No Insomnia, 2.5mg Take 1 Univers (ZyPREXA) - not tablet ity of 2.5 mg 00:00: 00:00 otherwise (2.5 mg) [place] tablet 00 :00 specified by mouth 2 MD (two) Anderso times a n day as Cancer needed for Center sleep or non-violen t agitation. OLANZapine 2020-06- No Insomnia, 2.5mg Take 1 Univers (ZyPREXA) - not tablet ity of 2.5 mg 00:00: [...] MD spasm. [facility] baclofen 2020-06- No Muscle Take 1/2 Un yakov (LIORESAL) 0-27 11-18 spasm of tablet (5 ity of 10 mg 00:00: 00:00 back mg) PO q12 [place] tablet 00 :00 PRN back MD spasm. [facility] baclofen 2020-06- No Muscle Take 1/2 Un yakov (LIORESAL) 11-18 spasm of tablet (5 ity of 10 mg 00:00: 00:00 back mg) PO q12 [place] tablet 00 :00 PRN back MD spasm. [facility] OLANZapine 2020-06- No Adjustment 2.5mg Take [...] cell 5 mg a day Univers (Namenda) 0- 03-11 carcinoma, x 1 week, ity of [...] cell 5 mg a day Univers (Namenda) 0- carcinoma, x 1 week, ity of 10 [...] erso mg per specified daily. n tablet [facility] amoxicillin 2020-06- No Upper 875mg Take 1 U nivers -clavulanat 0-15 - respiratory tablet ity of e 00:00: 00:00 infection, (875 mg) [place] (Augmentin) 00 :00 not by mouth 875 mg-125 otherwise twice And erso mg per specified daily. n tablet [facility] amoxicillin 2020-06- No Upper 875mg Take 1 U nivers -clavulanat 0-15 08-22 respiratory tablet ity of e 00:00: 00:00 infection, (875 mg) [place] (Augmentin) 00 :00 not by mouth 875 mg-125 otherwise twice And erso mg per specified daily. 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, TABLET(10 ity of 10 mg 00:00: 00:00 NOS of MG) BY [place] tablet 00 :00 upper lobe, MOUTH MD lung TWICE [place] <Right> DAILY [facility] 2020-06- No 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 n tablet [facility] amoxicillin 2020-06- No Upper 875mg Take 1 U nivers -clavulanat 0-09 10-15 respiratory tablet ity of e 00:00: 00:00 infection, (875 mg) [place] (Augmentin) 00 :00 not by mouth MD 875 mg-125 otherwise twice And erso mg per specified daily. n tablet [facility] pantoprazol 2021- No Aspiration 40mg Take 1 Univers e 03-29 into lower tablet (40 it y of (PROTONIX) 00:00: 00:00 respiratory mg) by [place] 40 mg EC 00 :00 tract mouth MD tablet daily. [facility] pantoprazol 2021- No Aspiration 40mg Take 1 Univers e 03-29 into lower tablet (40 it y of (PROTONIX) 00:00: 00:00 respiratory mg) by [place] 40 mg EC 00 :00 tract mouth MD tablet daily. [facility] pantoprazol 2021- No Aspiration 40mg Take 1 Univers e 03-29 into lower tablet (40 it y of (PROTONIX) 00:00: 00:00 respiratory mg) by [place] 40 mg EC 00 :00 tract mouth MD tablet daily. [facility] baclofen 2020- No Muscle Take 1/2 Un yakov (LIORESAL) 03-29 10-27 spasm of tablet (5 ity of 10 mg 00:00: 00:00 back mg) PO q12 [place] tablet 00 :00 PRN back MD spasm. [facility] baclofen 2020- No Muscle Take 1/2 Un yakov (LIORESAL) 03-29 10-27 spasm of tablet (5 ity of 10 mg 00:00: 00:00 back mg) PO q12 [place] tablet 00 :00 PRN back MD spasm. [facility] baclofen 2020- No Muscle Take 1/2 Un yakov (LIORESAL) 03-29 10-27 spasm of tablet (5 ity of 10 mg 00:00: 00:00 back mg) PO q12 [place] tablet 00 :00 PRN back MD spasm. 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 [place] OLANZapine 2020- No Adjustment 2.5mg Take 1 [...] erso mg per specified daily. n tablet [facility] amoxicillin No Upper 875mg Take 1 U nivers -clavulanat 03-27 respiratory tablet ity of e 00:00: 00:00 infection, (875 mg) [place] (Augmentin) 00 :00 not by mouth MD 875 mg-125 otherwise twice And erso mg per specified daily. n tablet [facility] baclofen 2020- No Muscle Take 1/2 Un yakov (LIORESAL) 03-08 spasm of tablet (5 ity of 10 mg 00:00: 00:00 back mg) PO q12 [place] tablet 00 :00 PRN back spasm. [facility] baclofen 2020- No Muscle Take 1/2 Un yakov (LIORESAL) 03-08 spasm of tablet (5 ity of 10 mg 00:00: 00:00 back mg) PO q12 [place] tablet 00 :00 PRN back spasm. [facility] baclofen 5 2020- No Muscle 5mg Take 5 mg Univers mg tab 03-08 spasm of by mouth ity of 00:00: 00:00 back every 12 [place] 00 :00 (twelve) MD hours. [facility] QUEtiapine 2021- No Aspiration 75mg 3 tablets Univers (SEROquel) 03-07 into lower (75 mg) by ity of 25 mg 00:00: 00:00 respiratory feeding [place] tablet 00 :00 tract tube route MD at [facility] bedtime. [facility] QUEtiapine 2021- No Aspiration 75mg 3 tablets Univers (SEROquel) 03-07 into lower (75 mg) by ity of 25 mg 00:00: 00:00 respiratory feeding [place] tablet 00 :00 tract tube route MD at [facility]. [facility] QUEtiapine 2021- No Aspiration 75mg 3 tablets Univers (SEROquel) 03-07 into lower (75 mg) by ity of 25 mg 00:00: 00:00 respiratory feeding [place] tablet 00 :00 tract tube route MD at [facility]. [facility] QUEtiapine 2020- No Aspiration 75mg 3 tablets Univers (SEROquel) 03-06 into lower (75 mg) by ity of 25 mg 00:00: 00:00 respiratory feeding [place] tablet 00 :00 tract tube route MD at [facility]. [facility] fluconazole 2020- No Acute 100mg Take 1 U nivers (DIFLUCAN) 03-03 kidney tablet ity of 100 mg 00:00: 04:59 injury due (100 mg) [place] tablet 00 :00 to by mouth hypovolemia daily for And erso 12 days. [facility] lidocaine 2021- No Acute 10mL Swish and [...] mg 00:00: 00:00 of upper mg) by [place] tablet 00 :00 lobe of mouth right lung twice Anderso daily. [facility] memantine 2020- No Small cell 10mg Take 1 Univers (Namenda) 03-0212 carcinoma tablet (10 ity of 10 mg 00:00: 00:00 of upper mg) by [place] tablet 00 :00 lobe of mouth right lung twice Anderso daily. [facility] baclofen 5 2020- No Muscle 5mg Take 5 mg Univers mg tab 03-02 spasm of by mouth ity of 00:00: 00:00 back every 12 [place] 00 :00 (twelve) MD hours. [facility] pantoprazol 2020- No Aspiration 40mg Take 1 Univers e 02-28 into lower tablet (40 it y of (PROTONIX) 00:00: 00:00 respiratory mg) by [place] 40 mg EC 00 :00 tract mouth MD tablet daily. [facility] pantoprazol 2020- No Aspiration 40mg Take 1 Univers e 02-28 into lower tablet (40 it y of (PROTONIX) 00:00: 00:00 respiratory mg) by [place] 40 mg EC 00 :00 tract mouth MD tablet daily. [facility] loperamide Yes Aspiration 2mg Take 1 Univers (IMODIUM) 2 8-31 into lower capsule (2 ity of mg capsule 00:00: respiratory mg) by [place] [address] tract mouth MD every 8 [place]o (eight) n hours as Cancer needed for Center diarrhea. Buy over the counter loperamide Yes Aspiration 2mg Take 1 Univers (IMODIUM) 2 8-31 into lower capsule (2 ity of mg capsule 00:00: respiratory mg) by [place] [address] tract mouth MD every 8 [place] (eight) n hours as Cancer needed for Center diarrhea. Buy over the counter loperamide Yes Aspiration 2mg Take 1 Univers (IMODIUM) 2 8-31 into lower capsule (2 ity of mg capsule 00:00: respiratory mg) by [place] [address] tract mouth MD every 8 [place] (eight) n hours as Cancer needed for Center diarrhea. Buy over the counter loperamide Yes Aspiration 2mg Take 1 Univers (IMODIUM) 2 8-31 into lower capsule (2 ity of mg capsule 00:00: respiratory mg) by [place] [address] tract mouth MD every 8 [place] (eight) n hours as Cancer needed for Center diarrhea. Buy over the counter loperamide Yes Aspiration 2mg Take 1 Univers (IMODIUM) 2 8-31 into lower capsule (2 ity of mg capsule 00:00: respiratory mg) by [place] [address] tract mouth MD every 8 [place] (eight) n hours as Cancer needed for Center diarrhea. Buy over the counter loperamide Yes Aspiration 2mg Take 1 Univers (IMODIUM) 2 8-31 into lower capsule (2 ity of mg capsule 00:00: respiratory mg) by [place] [address] tract mouth MD every 8 [place] (eight) n hours as Cancer needed for Center diarrhea. Buy over the counter loperamide Yes Aspiration 2mg Take 1 Univers (IMODIUM) 2 8-31 into lower capsule (2 ity of mg capsule 00:00: respiratory mg) by [place] [address] tract mouth MD every 8 [place] (eight) n hours as Cancer needed for Center diarrhea. Buy over the counter loperamide Yes Aspiration 2mg Take 1 Univers (IMODIUM) 2 8-31 into lower capsule (2 ity of mg capsule 00:00: respiratory mg) by [place] [address] tract mouth MD every 8 [place]o (eight) [...] n hours. [facility] enoxaparin 2021- No Other 50mg Inject 0.5 Univers (Lovenox) 02-27 pulmonary mL (50 mg) ity of 60 mg/0.6 00:00: 00:00 embolism under the [place] mL 00 :00 with acute skin every MD prefilled cor 12 Anderso syringe pulmonale (twelve) n hours. [facility] enoxaparin 2021- No Other 50mg Inject 0.5 Univers (Lovenox) 02-27 pulmonary mL (50 mg) ity of 60 mg/0.6 00:00: 00:00 embolism under the [place] mL 00 :00 with acute skin every MD prefilled cor 12 [place] syringe pulmonale (twelve) n hours. [facility] enoxaparin 2021- No Other 50mg Inject 0.5 Univers (Lovenox) 02-27 pulmonary mL (50 mg) ity of 60 mg/0.6 00:00: 00:00 embolism under the [place] mL 00 :00 with acute skin every MD prefilled cor 12 [place] syringe pulmonale (twelve) n hours. [facility] enoxaparin 2021- No Other 50mg Inject 0.5 Univers (Lovenox) 02-27 pulmonary mL (50 mg) ity of 60 mg/0.6 00:00: 00:00 embolism under the [place] mL 00 :00 with acute skin every MD prefilled cor 12 [place] syringe pulmonale (twelve) n hours. [facility] wound 2021- No Aspiration Apply Univ [...] tablet hours as n needed Cancer (pain). [facility] Yes Aspiration 1{tbl} Take 1 Univers n tab 7-23 into lower tablet by ity of tablet 00:00: respiratory mouth [place] 00 tract daily. MD Fuentes zimmerman [facility] Yes Aspiration 1{tbl} Take 1 Univers n tab 7-23 into lower tablet by ity of tablet 00:00: respiratory mouth [place] 00 tract daily. MD Fuentes zimmerman [facility] Yes Aspiration 1{tbl} Take 1 Univers n tab 7-23 into lower tablet by ity of tablet 00:00: respiratory mouth [place] 00 tract daily. MD Fuentes zimmerman [facility] Yes Aspiration 1{tbl} Take 1 Univers n tab 7-23 into lower tablet by ity of tablet 00:00: respiratory mouth [place] 00 tract daily. MD Fuentes zimmerman [facility] Yes Aspiration 1{tbl} Take 1 Univers n tab 7-23 into lower tablet by ity of tablet 00:00: respiratory mouth [place] 00 tract daily. MD Fuentes zimmerman [facility] Yes Aspiration 1{tbl} Take 1 Univers n tab 7-23 into lower tablet by ity of tablet 00:00: respiratory mouth [place] 00 tract daily. MD Fuentes zimmerman [facility] Yes Aspiration 1{tbl} Take 1 Univers n tab 7-23 into lower tablet by ity of tablet 00:00: respiratory mouth [place] 00 tract daily. MD Fuentes zimmerman [facility] Yes Aspiration 1{tbl} Take 1 Univers n tab 7-23 into lower tablet by ity of tablet 00:00: respiratory mouth [place] 00 tract daily. MD Fuentes zimmerman [facility] ferrous 2021- No 1{tbl} Take 1 Unive rs sulfate 325 7 05-17 tablet by it y of (65 FE) MG 00:00: 00:00 mouth [place] EC tablet 00 :00 daily. MD Fuentes zimmerman [facility] 2021- No 1{tbl} Take 1 Unive rs sulfate 325 722 05-17 tablet by it y of (65 FE) MG 00:00: 00:00 mouth [place] EC tablet 00 :00 daily. MD Fuentes zimmerman [facility] 2021- No 1{tbl} Take 1 Unive rs sulfate 325 7 05-17 tablet by it y of (65 FE) MG 00:00: 00:00 mouth [place] EC tablet 00 :00 daily. MD Fuentes zimmerman [facility] 2021- No 1{tbl} Take 1 Unive rs sulfate 325 7 05-17 tablet by it y of (65 FE) MG 00:00: 00:00 mouth [place] EC tablet 00 :00 daily. MD Fuentes zimmerman [facility] 2021- No 1{tbl} Take 1 Unive rs sulfate 325 7 05-17 tablet by it y of (65 FE) MG 00:00: 00:00 mouth [place] EC tablet 00 :00 daily. MD Fuentes zimmerman [facility] 2021- No 1{tbl} Take 1 Unive rs sulfate 325 7 05-17 tablet by it y of (65 FE) MG 00:00: 00:00 mouth [place] EC tablet 00 :00 daily. MD Fuentes zimmerman [facility] 2021- No 1{tbl} Take 1 Unive rs sulfate 325 7 05-17 tablet by it y of (65 FE) MG 00:00: 00:00 mouth [place] EC tablet 00 :00 daily. MD Fuentes zimmerman [facility] 2021- No 1{tbl} Take 1 Unive rs sulfate 325 722 05-17 tablet by it y of (65 FE) MG 00:00: 00:00 mouth [place] EC tablet 00 :00 daily. 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 [facility] buprenorphi Yes Opioid use 2{tbl} Place 2 Univers ne-naloxone 7-21 disorder, tablets ity of (SUBOXONE) 00:00: mild, in under the [place] 2 mg-0.5 mg 00 sustained tongue 3 MD sublingual remission (three) A nderso tablet times a n day. [facility] buprenorphi Yes Opioid use 2{tbl} Place 2 Univers ne-naloxone 7-21 disorder, tablets ity of (SUBOXONE) 00:00: mild, in under the [place] 2 mg-0.5 mg 00 sustained tongue 3 MD sublingual remission (three) A nderso tablet times a n day. [facility] buprenorphi Yes Opioid use 2{tbl} Place 2 Univers ne-naloxone 7-21 disorder, tablets ity of (SUBOXONE) 00:00: mild, in under the [place] 2 mg-0.5 mg 00 sustained tongue 3 MD sublingual remission (three) A nderso tablet times a n day. [facility] buprenorphi Yes Opioid use 2{tbl} Place 2 Univers ne-naloxone 7-21 disorder, tablets ity of (SUBOXONE) 00:00: mild, in under the [place] 2 mg-0.5 mg 00 sustained tongue 3 MD sublingual remission (three) A nderso tablet times a n day. [facility] buprenorphi Yes Opioid use 2{tbl} Place 2 Univers ne-naloxone 7-21 disorder, tablets ity of (SUBOXONE) 00:00: mild, in under the [place] 2 mg-0.5 mg 00 sustained tongue 3 MD sublingual remission (three) A nderso tablet times a n day. [facility] buprenorphi Yes Opioid use 2{tbl} Place 2 Univers ne-naloxone 7-21 disorder, tablets ity of (SUBOXONE) 00:00: mild, in under the [place] 2 mg-0.5 mg 00 sustained tongue 3 MD sublingual remission (three) A nderso tablet times a n day. [facility] buprenorphi 2021-0 Yes Opioid use 2{tbl} Place 2 Univers [...] day. n enteral Cancer tube Center feeding [facility] 2021- No Emphysema 600mg Take 1 Univers (MUCINEX) 10-08-12 tablet ity of 600 mg 12 00:00: 04:59 (600 mg) [place] hr tablet 00 :00 by mouth MD every 12 [place] (twelve) n hours. [facility] 2021- No Emphysema 600mg Take 1 Univers (MUCINEX) 10-08-12 tablet ity of 600 mg 12 00:00: 04:59 (600 mg) [place] hr tablet 00 :00 by mouth MD every 12 Anders[place] (twelve) n hours. [facility] 2021- No Emphysema 600mg Take 1 Univers (MUCINEX) 10-08- tablet ity of 600 mg 12 00:00: 04:59 (600 mg) [place] hr tablet 00 :00 by mouth MD every 12 Anderso (twelve) n hours. [facility] 2021- No Emphysema 600mg Take 1 Univers (MUCINEX) 10-08-12 tablet ity of 600 mg 12 00:00: 04:59 (600 mg) [place] hr tablet 00 :00 by mouth MD every 12 [place] (twelve) n hours. [facility] 2021- No Emphysema 600mg Take 1 Univers (MUCINEX) 10-08-12 tablet ity of 600 mg 12 00:00: 04:59 (600 mg) [place] hr tablet 00 :00 by mouth MD every 12 [place] (twelve) n hours. [facility] 2021- No Emphysema 600mg Take 1 Univers (MUCINEX) 10-08-12 tablet ity of 600 mg 12 00:00: 04:59 (600 mg) [place] hr tablet 00 :00 by mouth MD every 12 [place] (twelve) n hours. [facility] guaiFENesin 2- No Emphysema 600mg Take 1 [facility] (MUCINEX) 10-08 0412 tablet ity of 600 mg 12 00:00: 04:59 (600 mg) [place] hr tablet 00 :00 by mouth MD every 12 Anders[place] (twelve) n hours. [facility] Center lancets Yes Type 2 1{each} 1 each by [facility] 10-06 diabetes misc[place] ity o f 00:[place]: [place] with twice MD hyperglycem daily. Bakari o nv erasmo [facility] lancets Yes Type 2 1{each} 1 each by [facility] 10-06 diabetes [place] ity o f 00:00: [place]us route [place] 00 with twice MD hyperglycem daily. Bakarijanice zimmerman [facility] lancets Yes Type 2 1{each} 1 each by [facility] 10-06 diabetes [place] ity o f 00:00: [place] route [place] 00 with twice MD hyperglycem daily. Bakarijanice zimmerman [facility] lancets Yes Type 2 1{each} 1 each by [facility] 10-06 diabetes [place] ity o f 00:00: [place] route [place] 00 with twice MD hyperglycem daily. Bakarijanice zimmerman [facility] lancets Yes Type 2 1{each} 1 each by [facility] 10-06 diabetes [place] ity o f 00:00: [place] route [place] with twice MD hyperglycem daily. Bakarijanice zimmerman [facility] lancets Yes Type 2 1{each} 1 each by [facility] 10-06 diabetes [place] ity o f 00:00: [place] route [place] with twice MD hyperglycem daily. Bakari o marci zimmerman [facility] lancets Yes Type 2 1{each} 1 each by [facility] 10-06 diabetes miscellane it[place] o [place] with twice [place] hyperglycem daily. Bakari o marci zimmerman [facility] lancets Yes Type 2 1{each} 1 each by [facility] 10-06 diabetes miscellane ity o f 00:[place] with twice MD santiago daily. [facility] Immunizations Ordered Immunization Filled Immunization Date Status Commen ts Source Name Name Pneumococcal 2022-03-24 Completed [facility] Polysaccharide 00:00:00 [place] [facility] [place] Pneumococcal 2022-03-24 Completed University o f Polysaccharide 00:00:00 [place] Isaac Can r [place] Pneumococcal 2022-03-24 Completed University o f Polysaccharide 00:00:00 [place] [facility] [place] remdesivir 2020-08-22 Completed [facility] of 00:00:00 [place] [facility] [place] remdesivir 2020-08-22 Completed [facility] of 00:00:00 [place] [facility] [place] remdesivir 2020-08-22 Completed [facility] of 00:00:00 [place] Isaac Can r [place] remdesivir 2020-08-22 Completed University of 00:00:00 [place] Isaac Can r [place] remdesivir 2020-08-22 Completed [facility] 00:00:00 [place] [facility] [place] remdesivir 2020-08-22 Completed [facility] of 00:00:00 [place] [facility] [place] remdesivir 2020-08-22 Completed [facility] of 00:00:00 [place] [facility] [place] remdesivir 2020-08-22 Completed [facility] of 00:00:00 [place] [facility] [place] remdesivir 2020-08-22 Completed [facility] of 00:00:00 [place] [facility] [place] remdesivir 2020-08-22 Completed [facility] of 00:00:00 [place] [facility] [place] remdesivir 2020-08-22 Completed [facility] of 00:00:00 [place] [facility] [place] remdesivir 2020-08-22 Completed [facility] of 00:00:00 [place] [facility] [place] remdesivir 2020-08-22 Completed [facility] 00:00:00 [place] [facility] [place] remdesivir 2020-08-22 Completed [facility] of 00:00:00 [place] [facility] [place] remdesivir 2020-08-22 Completed [facility] of 00:00:00 [place] [facility] [place] remdesivir 2020-08-22 Completed [facility] 00:00:00 [place] [facility] remdesivir 2020-08-21 Completed [facility] of 00:00:00 [place] Isaac [facility] remdesivir 2020-08-21 Completed [facility] 00:00:00 [place] [facility] [facility] remdesivir 2020-08-21 Completed [facility] of 00:00:00 [place] Isaac [facility] remdesivir 2020-08-21 Completed [facility] of 00:00:00 [place] Isaac [facility] remdesivir 2020-08-21 Completed [facility] 00:00:00 [place] [facility] [facility] remdesivir 2020-08-21 Completed [facility] 00:00:00 [place] [facility] remdesivir 2020-08-21 Completed [facility] of 00:00:00 [place] Isaac [facility] remdesivir 2020-08-21 Completed [facility] of 00:00:00 [place] Isaac [facility] remdesivir 2020-08-20 Completed [facility] of 00:00:00 [place] Isaac [facility] remdesivir 2020-08-20 Completed [facility] 00:00:00 [place] [facility] [facility] remdesivir 2020-08-20 Completed [facility] 00:00:00 [place] [facility] [facility] remdesivir 2020-08-20 Completed [facility] 00:00:00 [place] [facility] [facility] remdesivir 2020-08-20 Completed [facility] 00:00:00 [place] [facility] [facility] remdesivir 2020-08-20 Completed [facility] of 00:00:00 [place] Isaac [facility] remdesivir 2020-08-20 Completed [facility] 00:00:00 [place] [facility] [facility] remdesivir 2020-08-20 Completed [facility] 00:00:00 [place] [facility] [facility] remdesivir 2020-08-19 Completed [facility] 00:00:00 [place] [facility] [facility] remdesivir 2020-08-19 Completed [facility] 00:00:00 [place] [facility] [facility] remdesivir 2020-08-19 Completed [facility] 00:00:00 [place] [facility] [facility] remdesivir 2020-08-19 Completed [facility] of 00:00:00 [place] [facility] [facility] remdesivir 2020-08-19 Completed [facility] of 00:00:00 [place] Isaac [facility] remdesivir 2020-08-19 Completed [facility] of 00:00:00 [place] Isaac [facility] remdesivir 2020-08-19 Completed [facility] of 00:00:00 [place] Isaac [facility] remdesivir 2020-08-19 Completed [facility] of 00:00:00 [place] Isaac [facility] remdesivir 2020-08-18 Completed [facility] of 00:00:00 [place] Isaac [facility] remdesivir 2020-08-18 Completed [facility] of 00:00:00 [place] Isaac [facility] remdesivir 2020-08-18 Completed [facility] of 00:00:00 [place] Isaac [facility] remdesivir 2020-08-18 Completed [facility] of 00:00:00 [place] Isaac [facility] remdesivir 2020-08-18 Completed [facility] of 00:00:00 [place] Isaac [facility] remdesivir 2020-08-18 Completed [facility] of 00:00:00 [place] Isaac [facility] remdesivir 2020-08-18 Completed [facility] of 00:00:00 [place] Isaac [facility] remdesivir 2020-08-18 Completed [facility] of 00:00:00 [place] Isaac [facility] remdesivir 2020-08-03 Completed [facility] of 00:00:00 [place] Isaac [facility] remdesivir 2020-08-03 Completed [facility] of 00:00:00 [place] Isaac [facility] remdesivir 2020-08-03 Completed [facility] of 00:00:00 [place] Isaac [facility] remdesivir 2020-08-03 Completed [facility] of 00:00:00 [place] Isaac [facility] remdesivir 2020-08-03 Completed [facility] of 00:00:00 [place] Isaac [facility] remdesivir 2020-08-03 Completed [facility] of 00:00:00 [place] Isaac [facility] remdesivir 2020-08-03 Completed [facility] of 00:00:00 [place] Isaac [facility] remdesivir 2020-08-03 Completed [facility] of 00:00:00 [place] Isaac [facility] remdesivir 2020-08-02 Completed [facility] of 00:00:00 [place] Isaac [facility] remdesivir 2020-08-02 Completed [facility] of 00:00:00 [place] Isaac [facility] remdesivir 2020-08-02 Completed [facility] of 00:00:00 [place] Isaac [facility] remdesivir 2020-08-02 Completed [facility] of 00:00:00 [place] Isaac [facility] remdesivir 2020-08-02 Completed [facility] of 00:00:00 [place] Isaac [facility] remdesivir 2020-08-02 Completed [facility] of 00:00:00 [place] Isaac [facility] remdesivir 2020-08-02 Completed [facility] of 00:00:00 [place] Isaac [facility] remdesivir 2020-08-02 Completed [facility] of 00:00:00 [place] Isaac [facility] remdesivir 2020-08-02 Completed [facility] of 00:00:00 [place] Isaac [facility] remdesivir 2020-08-02 Completed [facility] of 00:00:00 [place] Isaac [facility] remdesivir 2020-08-02 Completed [facility] of 00:00:00 [place] Isaac [facility] remdesivir 2020-08-02 Completed [facility] of 00:00:00 [place] Isaac [facility] remdesivir 2020-08-02 Completed [facility] of 00:00:00 [place] Isaac [facility] remdesivir 2020-08-02 Completed [facility] of 00:00:00 [place] Isaac [facility] remdesivir 2020-08-02 Completed [facility] of 00:00:00 [place] Isaac [facility] remdesivir 2020-08-02 Completed [facility] of 00:00:00 [place] Isaac [facility] remdesivir 2020-08-01 Completed [facility] of 00:00:00 [place] Isaac [facility] remdesivir 2020-08-01 Completed [facility] of 00:00:00 [place] Isaac [facility] remdesivir 2020-08-01 Completed [facility] of 00:00:00 [place] Isaac [facility] remdesivir 2020-08-01 Completed [facility] of 00:00:00 [place] Isaac [facility] remdesivir 2020-08-01 Completed [facility] of 00:00:00 [place] Isaac [facility] remdesivir 2020-08-01 Completed [facility] of 00:00:00 [place] Isaac [facility] remdesivir 2020-08-01 Completed University of 00:00:00 [place] Isaac Dom [facility] remdesivir 2020-08-01 Completed University of 00:00:00 [place] Isaac Dom r [place] remdesivir 2020-07-31 Completed University of 00:00:00 [place] Isaac Dom r [place] remdesivir 2020-07-31 Completed University of 00:00:00 Willis Fernandes [facility] remdesivir 2020-07-31 Completed University of 00:00:00 Willis Fernandes [facility] remdesivir 2020-07-31 Completed University of 00:00:00 [place] Poncho Fernandes [facility] remdesivir 2020-07-31 Completed [facility] 00:00:00 [facility] Completed [facility] 00:00:00 Willis Isaac [facility] remdesivir 2020-07-31 Completed [facility] 00:00:00 [facility] 2020-07-31 Completed University of 00:00:00 Willis Isaac [facility] remdesivir 2020-07-30 Completed [facility] 00:00:00 [facility] remdesivir 2020-07-30 Completed [facility] 00:00:00 [facility] remdesivir 2020-07-30 Completed University of 00:00:00 Willis Isaac [facility] remdesivir 2020-07-30 Completed University of 00:00:00 Willis Isaac [facility] remdesivir 2020-07-30 Completed [facility] 00:00:00 [facility] 2020-07-30 Completed [facility] 00:00:00 [place] [facility] remdesivir 2020-07-30 Completed University of 00:00:00 Willis Fernandes [facility] remdesivir 2020-07-30 Completed University of 00:00:00 Willis Fernandes [facility] Influenza Split High 2020-03-29 Completed Univ ersity of Dose Preservative 00:00:00 Willis Fernandes [facility] Zoster Recombinant 2020-03-29 Completed Univer sity of 00:00:00 Willis Fernandes [facility] Influenza Split High 2020-03-29 Completed Univ ersity of Dose Preservative 00:00:00 [place] M D Free IM [facility] Zoster Recombinant 2020-03-29 Completed Univer sity of 00:00:00 [place] Poncho Fernandes r [place] Influenza Split High 2020-03-29 Completed Univ ersity of Dose Preservative 00:00:00 [place] M D Free IM [facility] Zoster Recombinant 2020-03-29 Completed Univer sity of 00:00:00 Willis Fernandes r [place] Influenza Split High 2020-03-29 Completed Univ ersity of Dose Preservative 00:00:00 [place] D Free IM [facility] Zoster Recombinant 2020-03-29 Completed Univer sity of 00:00:00 [place] MD Poncho Fernandes r [place] Influenza Split High 2020-03-29 Completed Univ ersity of Dose Preservative 00:00:00 [place] D Free IM [facility] Zoster Recombinant 2020-03-29 Completed Univer sity of 00:00:00 Willis Fernandes r [place] Influenza Split High 2020-03-29 Completed Univ ersity of Dose Preservative 00:00:00 [place] M D Free [facility] Zoster Recombinant 2020-03-29 Completed Univer sity of 00:00:00 Willis Fernandes r [place] Influenza Split High 2020-03-29 Completed Univ ersity of Dose Preservative 00:00:00 [place] D Free [facility] Zoster Recombinant 2020-03-29 Completed Univer sity of 00:00:00 Willis Fernandes r [place] Influenza Split High 2020-03-29 Completed Univ ersity of Dose Preservative 00:00:00 [place] Free [facility] C[facility] Center Zoster Recombinant 2020-03-29 Completed Univer sity of 00:00:00 [place] MD Poncho Fernandes r [place] Vital Signs Vital Name Observation Time Observation Value Comments Source WEIGHT 2020-04-21 12:35:00 49.6 kg HEIGHT 2020-03-31 09:15:13 162 cm WEIGHT 2020-03-31 09:15:13 49 kg HEIGHT 2020-03-02 10:27:01 162 cm WEIGHT 2020-03-02 10:27:01 46.8 kg Systolic blood 2022-09-13 16:01:18 97 mm[Hg] Univer sity of pressure [facility] Diastolic blood 2022-09-13 16:01:18 67 mm[Hg] Unive rsity of pressure [facility] Heart rate 2022-09-13 16:01:18 75 /min [facility] Body temperature 2022-09-13 16:01:18 36.89 Lizabeth Univ ersity of [facility] Respiratory rate 2022-09-13 16:01:18 16 /min Univ ersity of [facility] Body weight 2022-09-13 16:01:18 47.9 kg [facility]i [facility] BMI 2022-09-13 16:01:18 18.03 kg/m2 [facility] Oxygen saturation in 2022-09-13 16:01:18 99 /min University of Arterial blood by Willis Ramírez nderson [facility] Systolic blood 2022-06-07 13:58:19 109 mm[Hg] Univer sity of pressure [facility] Diastolic blood 2022-06-07 13:58:19 67 mm[Hg] Unive rsity of pressure [facility] Heart rate 2022-06-07 13:58:19 64 /min [facility] Respiratory rate 2022-06-07 13:58:19 18 /min Univ ersity of [facility] Oxygen saturation in 2022-06-07 13:58:19 100 /min University of Arterial blood by Willis Ramírez [facility] Body weight 2022-06-07 13:11:00 50 kg [facility] BMI 2022-06-07 13:11:00 18.82 kg/m2 [facility] Body height 2022-06-07 13:11:00 163 cm [facility] Heart rate 2021-10-24 21:41:00 74 /min [facility] Respiratory rate 2021-10-24 21:41:00 18 /min Univ ersity of [facility] Systolic blood 2021-10-24 17:30:00 119 mm[Hg] Univer sity of pressure [facility] Diastolic blood 2021-10-24 17:30:00 78 mm[Hg] [facility] [place] MD Villegas on [facility] Center Oxygen saturation in 2021-10-24 17:30:00 96 /min [facility] Arterial blood by [facility] [place] [facility] Body temperature 2021-10-24 16:48:00 36.89 Lizabeth [facility] Body weight 2021-10-24 09:00:00 [facility] MD Villegas on [facility] Center BMI 2021-10-24 09:00:00 19.57 kg/m2 [facility] MD Villegas on [facility] Center Body height 2021-10-15 14:57:00 167.6 cm [facility] MD Villegas [facility] Procedures Procedure Date / Time Performing Clinician Source Performed CT CHEST W CONTRAST 2022-09-13 13:57:00 Stella Clark [facility] POC CREATININE 2022-09-13 13:38:00 Stella Clark [facility] COMPLETE BLOOD COUNT W/ 2022-09-13 13:10:00 [facility] COMPREHENSIVE METABOLIC 2022-09-13 13:10:00 [facility] Fernanda [facility] PANEL [facility] Results CBC 2022-09-13 13:10:00 Maria Fernanda [place] [facility] MANUAL DIFFERENTIAL 2022-09-13 13:10:00 Maria Fernanda [place] [facility] GLUCOSE LEVEL 2022-09-13 13:10:00 Maria Fernanda [facility] BLOOD UREA NITROGEN 2022-09-13 13:10:00 [facility] ELECTROLYTE PANEL 2022-09-13 13:10:00 [facility] SERUM CREATININE 2022-09-13 13:10:00 Fossella, Maria Fernanda V. [facility] .GLOMERULAR FILTRATION 2022-09-13 13:10:00 Maria Fernanda [place] [facility] RATE [facility] CALCIUM LEVEL TOTAL 2022-09-13 13:10:00 Maria Fernanda [place] V. [facility] ALBUMIN LEVEL 2022-09-13 13:10:00 Maria Fernanda [place] V. [facility] ALKALINE PHOSPHATASE 2022-09-13 13:10:00 Maria Fernanda [place] V. [facility] ALANINE AMINOTRANSFERASE 2022-09-13 13:10:00 Maria Fernanda [place] V. [facility] ASPARTATE AMINOTRANSFERASE 2022-09-13 13:10:00 Maria Fernanda [place] [facility] TOTAL PROTEIN 2022-09-13 13:10:00 Maria Fernanda [place] V. [facility] FRACTIONATED BILIRUBIN 2022-09-13 13:10:00 Maria Fernanda [place] [facility] COMPLETE BLOOD COUNT W/ 2022-06-07 15:54:00 [facility] COMPREHENSIVE METABOLIC 2022-06-07 15:54:00 St[facility] PANEL [facility] FREE THYROXINE 2022-06-07 15:54:00 Stella Clark [facility] MAGNESIUM LEVEL 2022-06-07 15:54:00 Stella Clark [facility] TOTAL T3 2022-06-07 15:54:00 Stella Clark [facility] THYROID STIMULATING 2022-06-07 15:54:00 [facility] URIC ACID 2022-06-07 15:54:00 Stella Clark [facility] Results CBC 2022-06-07 15:54:00 Stella Clark [facility] MANUAL DIFFERENTIAL 2022-06-07 15:54:00 Stella Clark [facility] GLUCOSE LEVEL 2022-06-07 15:54:00 Stella Clark [facility] BLOOD UREA NITROGEN 2022-06-07 15:54:00 Stella Clark [facility] SERUM CREATININE 2022-06-07 15:54:00 Stella Clark [facility] .GLOMERULAR FILTRATION 2022-06-07 15:54:00 Stella Clark [facility] RATE [facility] CALCIUM LEVEL TOTAL 2022-06-07 15:54:00 Stella Clark [facility] ALBUMIN LEVEL 2022-06-07 15:54:00 Stella Clark [facility] ALKALINE PHOSPHATASE 2022-06-07 15:54:00 Stella Clark [facility] [place] ALANINE AMINOTRANSFERASE 2022-06-07 15:54:00 Stella Clark [facility] ASPARTATE AMINOTRANSFERASE 2022-06-07 15:54:00 Stella Clark [facility] TOTAL PROTEIN 2022-06-07 15:54:00 Stella Clark [facility] FRACTIONATED BILIRUBIN 2022-06-07 15:54:00 Stella Clark [facility] ELECTROLYTE PANEL 2022-06-07 15:54:00 Stella Clark [facility] PETCT SUBSEQUENT TREATMENT 2022-06-07 15:27:59 Stella Clark [facility] STRATEGY [facility] COMPLETE BLOOD COUNT W/ 2021-10-24 10:53:00 Tod Glass V. [facility] DIFFERENTIAL [facility] COMPREHENSIVE METABOLIC 2021-10-24 10:53:00 Tdo Glass V. [facility] PANEL [facility] MAGNESIUM LEVEL 2021-10-24 10:53:00 Tod Glass V. [facility] PHOSPHORUS LEVEL 2021-10-24 10:53:00 Tod Glass V. [facility] Results CBC 2021-10-24 10:53:00 Tod Glass V. [facility] MANUAL DIFFERENTIAL 2021-10-24 10:53:00 Tod Glass V. [facility] GLUCOSE LEVEL 2021-10-24 10:53:00 Tod Glass V. [facility] BLOOD UREA NITROGEN 2021-10-24 10:53:00 Tod Glass V. [facility] ELECTROLYTE PANEL 2021-10-24 10:53:00 Tod Glass V. [facility] SERUM CREATININE 2021-10-24 10:53:00 Tod Glass V. [facility] .GLOMERULAR FILTRATION 2021-10-24 10:53:00 Tod Glass [facility] RATE [facility] CALCIUM LEVEL TOTAL 2021-10-24 10:53:00 Tod Glass V. [facility] ALBUMIN LEVEL 2021-10-24 10:53:00 Tod Glass V. [facility] ALKALINE PHOSPHATASE 2021-10-24 10:53:00 Tod Glass V. Univers ity [facility] ALANINE AMINOTRANSFERASE 2021-10-24 10:53:00 Tod Glass V. Uni versity [facility] ASPARTATE AMINOTRANSFERASE 2021-10-24 10:53:00 Tod Glass [facility] TOTAL PROTEIN 2021-10-24 10:53:00 Tod Glass V. [facility] FRACTIONATED BILIRUBIN 2021-10-24 10:53:00 [facility] OSCILLATORY PEP 2021-10-23 13:00:13 Tod Glass V. [facility] COMPLETE BLOOD COUNT W/ 2021-10-23 12:28:00 Tod Glass V. [facility] DIFFERENTIAL [facility] COMPREHENSIVE METABOLIC 2021-10-23 12:28:00 Tod Glass V. [facility] PANEL [facility] MAGNESIUM LEVEL 2021-10-23 12:28:00 Tod Glass V. [facility] PHOSPHORUS LEVEL 2021-10-23 12:28:00 Tod Glass V. [facility] Results CBC 2021-10-23 12:28:00 Tod Glass V. [facility] MANUAL DIFFERENTIAL 2021-10-23 12:28:00 Tod Glass V. [facility] GLUCOSE LEVEL 2021-10-23 12:28:00 Tod Glass V. [facility] BLOOD UREA NITROGEN 2021-10-23 12:28:00 Tod Glass V. [facility] ELECTROLYTE PANEL 2021-10-23 12:28:00 Tod Glass V. [facility] SERUM CREATININE 2021-10-23 12:28:00 Tod Glass V. [facility] .GLOMERULAR FILTRATION 2021-10-23 12:28:00 Tod Glass V. [facility] RATE [facility] CALCIUM LEVEL TOTAL 2021-10-23 12:28:00 Tod Glass V. [facility] ALBUMIN LEVEL 2021-10-23 12:28:00 Tod Glass V. [facility] ALKALINE PHOSPHATASE 2021-10-23 12:28:00 Tod Glass V. [facility] ALANINE AMINOTRANSFERASE 2021-10-23 12:28:00 Tod Glass V. [facility] ASPARTATE AMINOTRANSFERASE 2021-10-23 12:28:00 [facility] TOTAL PROTEIN 2021-10-23 12:28:00 Tod Glass V. [facility] FRACTIONATED BILIRUBIN 2021-10-23 12:28:00 Tod Glass [facility] OSCILLATORY PEP 2021-10-22 19:00:57 Tod Glass V. [facility] OSCILLATORY PEP 2021-10-22 13:00:14 Tod Glass V. [facility] COMPLETE BLOOD COUNT W/ 2021-10-22 11:48:00 Tod Glass [facility] DIFFERENTIAL [facility] COMPREHENSIVE METABOLIC 2021-10-22 11:48:00 Tod Glass [facility] PANEL [facility] MAGNESIUM LEVEL 2021-10-22 11:48:00 Tod Glass V. [facility] PHOSPHORUS LEVEL 2021-10-22 11:48:00 Tod Glass V. [facility] IGG SUBCLASSES, SERUM 2021-10-22 11:48:00 Tod Glass sity [facility] IMMUNOGLOBULIN G SERUM 2021-10-22 11:48:00 Tod Glass [facility] IMMUNOGLOBULIN A SERUM 2021-10-22 11:48:00 Tod Glass V. [facility] Results CBC 2021-10-22 11:48:00 Tod Glass V. [facility] MANUAL DIFFERENTIAL 2021-10-22 11:48:00 Tod Glass V. [facility] GLUCOSE LEVEL 2021-10-22 11:48:00 Tod Glass V. [facility] BLOOD UREA NITROGEN 2021-10-22 11:48:00 Tod Glass V. [facility] ELECTROLYTE PANEL 2021-10-22 11:48:00 Tod Glass V. [facility] SERUM CREATININE 2021-10-22 11:48:00 Tod Glass V. [facility] .GLOMERULAR FILTRATION 2021-10-22 11:48:00 Tod Glass [facility] RATE [employer] [facility] CALCIUM LEVEL TOTAL 2021-10-22 11:48:00 Tod Glass V. [facility] ALBUMIN LEVEL 2021-10-22 11:48:00 Tod Glass V. [facility] ALKALINE PHOSPHATASE 2021-10-22 11:48:00 Tod Glass V. [facility] ALANINE AMINOTRANSFERASE 2021-10-22 11:48:00 [facility] ASPARTATE AMINOTRANSFERASE 2021-10-22 11:48:00 Tod Glass [facility] TOTAL PROTEIN 2021-10-22 11:48:00 Tod Glass V. [facility] FRACTIONATED BILIRUBIN 2021-10-22 11:48:00 Tod Glass [facility] OSCILLATORY PEP 2021-10-22 01:00:11 Tod Glass V. [facility] XR CHEST 1 VW 2021-10-21 20:44:00 Tod Glass V. [facility] BLOODCULTURE 2021-10-21 14:09:00 Tod Glass V. [facility] FUNGAL BLOODCULTURE 2021-10-21 14:09:00 Tod Glass [facility]. [facility] COMPLETE BLOOD COUNT W/ 2021-10-21 11:02:00 Tod Glass [facility] DIFFERENTIAL [employer] [facility] COMPREHENSIVE METABOLIC 2021-10-21 11:02:00 Tod Glass [facility] MAGNESIUM LEVEL 2021-10-21 11:02:00 Tod Glass V. [facility] PHOSPHORUS LEVEL 2021-10-21 11:02:00 Tod Glass V. [facility] Results CBC 2021-10-21 11:02:00 Tod Glass V. [facility] MANUAL DIFFERENTIAL 2021-10-21 11:02:00 Tod Glass [facility]. [facility] GLUCOSE LEVEL 2021-10-21 11:02:00 Tod Glass V. [facility] BLOOD UREA NITROGEN 2021-10-21 11:02:00 Tod Glass [facility]. [facility] ELECTROLYTE PANEL 2021-10-21 11:02:00 Tod Glass V. [facility] SERUM CREATININE 2021-10-21 11:02:00 Tod Glass V. [facility] .GLOMERULAR FILTRATION 2021-10-21 11:02:00 Tod Glass [facility] CALCIUM LEVEL TOTAL 2021-10-21 11:02:00 Tod Glass [facility]. [facility] ALBUMIN LEVEL 2021-10-21 11:02:00 Tod Glass V. [facility] ALKALINE PHOSPHATASE 2021-10-21 11:02:[address] [facility] ALANINE AMINOTRANSFERASE 2021-10-21 11:02:00 Tod Glass [facility]. [facility] ASPARTATE AMINOTRANSFERASE 2021-10-21 11:02:00 Tod Glass [facility]. [facility] TOTAL PROTEIN 2021-10-21 11:02:00 Tod Glass V. [facility] FRACTIONATED BILIRUBIN 2021-10-21 11:02:00 Tod Glass [facility] EKG, 12-LEAD (PORTABLE) 2021-10-21 00:00:00 Tod Glass V. [facility] XR ABDOMEN 1 VW PORTABLE 2021-10-20 19:19:00 Tod Glass [facility]. [facility] OSCILLATORY PEP 2021-10-20 19:00:49 Tod Glass V. [facility] OSCILLATORY PEP 2021-10-20 13:00:11 Tod Glass V. [facility] COMPLETE BLOOD COUNT W/ 2021-10-20 11:10:00 Tod Glass V. [facility] DIFFERENTIAL [facility] COMPREHENSIVE METABOLIC 2021-10-20 11:10:00 Tod Glass V. [facility] PANEL [facility] MAGNESIUM LEVEL 2021-10-20 11:10:00 Tod Glass V. [facility] PHOSPHORUS LEVEL 2021-10-20 11:10:00 Tod Glass V. [facility] Results CBC 2021-10-20 11:10:00 Tod Glass V. [facility] MANUAL DIFFERENTIAL 2021-10-20 11:10:00 Tod Galss [facility] GLUCOSE LEVEL 2021-10-20 11:10:00 Tod Glass V. [facility] BLOOD UREA NITROGEN 2021-10-20 11:10:00 Tod Glass [facility]. [facility] ELECTROLYTE PANEL 2021-10-20 11:10:00 Tod Glass V. [facility] SERUM CREATININE 2021-10-20 11:10:00 Tod Glass V. [facility] .GLOMERULAR FILTRATION 2021-10-20 11:10:00 Tod Glass V. [facility] RATE [facility] CALCIUM LEVEL TOTAL 2021-10-20 11:10:00 Tod Glass [facility] ALBUMIN LEVEL 2021-10-20 11:10:00 Tod Glass V. [facility] ALKALINE PHOSPHATASE 2021-10-20 11:10:00 Tod Glass V. [facility] ALANINE AMINOTRANSFERASE 2021-10-20 11:10:00 Tod Glass [facility]. [facility] ASPARTATE AMINOTRANSFERASE 2021-10-20 11:10:00 Tod Glass [facility]. [facility] TOTAL PROTEIN 2021-10-20 11:10:00 Tod Glass V. [facility] FRACTIONATED BILIRUBIN 2021-10-20 11:10:00 Tod Glass V. [facility] OSCILLATORY PEP 2021-10-20 01:00:09 Tod Glass V. [facility] OSCILLATORY PEP 2021-10-19 19:00:53 Tod Glass V. [facility] PATHOLOGY BIOPSY 2021-10-19 18:35:00 Edwige Rod [facility] INTERPRETATION [facility] UPPER GASTROINTESTINAL 2021-10-19 18:14:00 Edwige Rod [facility] ENDOSCOPY OF ESOPHAGUS, MD Levi d[facility] STOMACH, AND DUODENUM WITH Cente r BIOPSY OSCILLATORY PEP 2021-10-19 14:01:42 Tod Glass V. [facility] COMPLETE BLOOD COUNT W/ 2021-10-19 12:18:00 Tod Glass V. [facility] DIFFERENTIAL [facility] COMPREHENSIVE METABOLIC 2021-10-19 12:18:00 Tod Glass V. [facility] PANEL [facility] MAGNESIUM LEVEL 2021-10-19 12:18:00 Tod Glass V. [facility] PHOSPHORUS LEVEL 2021-10-19 12:18:00 Tod Glass V. [facility] Results CBC 2021-10-19 12:18:00 Tod Glass V. [facility] MANUAL DIFFERENTIAL 2021-10-19 12:18:00 Tod Glass [facility]. [facility] GLUCOSE LEVEL 2021-10-19 12:18:00 Tod Glass V. [facility] BLOOD UREA NITROGEN 2021-10-19 12:18:00 Tod Glass [facility]. [facility] ELECTROLYTE PANEL 2021-10-19 12:18:00 Tod Glass V. [facility] SERUM CREATININE 2021-10-19 12:18:00 Tod Glass V. [facility] .GLOMERULAR FILTRATION 2021-10-19 12:18:00 Tod Glass [facility] RATE [facility] CALCIUM LEVEL TOTAL 2021-10-19 12:18:00 Tod Glass [facility]. [facility] ALBUMIN LEVEL 2021-10-19 12:18:00 Tod Glass V. [facility] ALKALINE PHOSPHATASE 2021-10-19 12:18:00 Tod Glass V. [facility] ALANINE AMINOTRANSFERASE 2021-10-19 12:18:00 Tod Glass V. [facility] ASPARTATE AMINOTRANSFERASE 2021-10-19 12:18:00 Tod Glass [facility]. [facility] TOTAL PROTEIN 2021-10-19 12:18:00 Tod Glass V. [facility] FRACTIONATED BILIRUBIN 2021-10-19 12:18:00 Tod Glass [facility] XR CHEST 1 VW 2021-10-18 21:15:00 Tod Glass V. [facility] POC GLUCOSE SCREEN 2021-10-18 11:47:00 Tod Glass V. [facility] COMPLETE BLOOD COUNT W/ 2021-10-18 09:25:00 Tod Glass V. [facility] DIFFERENTIAL [facility] COMPREHENSIVE METABOLIC 2021-10-18 09:25:00 Tod Glass V. [facility] PANEL [facility] MAGNESIUM LEVEL 2021-10-18 09:25:00 Tod Glass V. [facility] PHOSPHORUS LEVEL 2021-10-18 09:25:00 Tod Glass V. [facility] Results CBC 2021-10-18 09:25:00 Tod Glass V. [facility] MANUAL DIFFERENTIAL 2021-10-18 09:25:00 Tod Glass [facility]. [facility] GLUCOSE LEVEL 2021-10-18 09:25:00 Tod Glass V. [facility] BLOOD UREA NITROGEN 2021-10-18 09:25:00 Tod Glass V. [facility] ELECTROLYTE PANEL 2021-10-18 09:25:00 Tod Glass V. [facility] SERUM CREATININE 2021-10-18 09:25:00 Tod Glass V. [facility] .GLOMERULAR FILTRATION 2021-10-18 09:25:00 Tod Glass V. [facility] RATE [facility] CALCIUM LEVEL TOTAL 2021-10-18 09:25:00 Tod Glass V. [facility] ALBUMIN LEVEL 2021-10-18 09:25:00 Tod Glass V. [facility] ALKALINE PHOSPHATASE 2021-10-18 09:25:00 Tod Glass V. [facility] ALANINE AMINOTRANSFERASE 2021-10-18 09:25:00 Tod Glass V. [facility] ASPARTATE AMINOTRANSFERASE 2021-10-18 09:25:00 Tod Glass V. [facility] TOTAL PROTEIN 2021-10-18 09:25:00 Tod Glass V. [facility] FRACTIONATED BILIRUBIN 2021-10-18 09:25:00 Tod Glass V. [facility] OSCILLATORY PEP 2021-10-18 07:00:10 Tod Glass V. [facility] OSCILLATORY PEP 2021-10-18 01:00:07 Tod Glass V. [facility] OSCILLATORY PEP 2021-10-17 19:01:02 Tod Glass V. [facility] VANCOMYCIN LEVEL TROUGH 2021-10-17 16:50:00 Tod Glass V. [facility] OSCILLATORY PEP 2021-10-17 14:31:30 Tod Glass V. [facility] FUNGITELL, SERUM 2021-10-17 08:59:00 Tod Glass V. [facility] COMPLETE BLOOD COUNT W/ 2021-10-17 08:59:00 Tod Glass V. [facility] DIFFERENTIAL [facility] COMPREHENSIVE METABOLIC 2021-10-17 08:59:00 Tod Glass V. [facility] PANEL [facility] MAGNESIUM LEVEL 2021-10-17 08:59:00 Tod Glass V. [facility] PHOSPHORUS LEVEL 2021-10-17 08:59:00 Tod Glass V. [facility] Results CBC 2021-10-17 08:59:00 Tod Glass V. [facility] MANUAL DIFFERENTIAL 2021-10-17 08:59:00 Tod Glass V. [facility] GLUCOSE LEVEL 2021-10-17 08:59:00 Tod Glass V. [facility] BLOOD UREA NITROGEN 2021-10-17 08:59:00 Tod Glass V. [facility] ELECTROLYTE PANEL 2021-10-17 08:59:00 Tod Glass V. [facility] SERUM CREATININE 2021-10-17 08:59:00 Tod Glass V. [facility] .GLOMERULAR FILTRATION 2021-10-17 08:59:00 Tod Glass [facility] RATE [facility] CALCIUM LEVEL TOTAL 2021-10-17 08:59:00 [facility] ALBUMIN LEVEL 2021-10-17 08:59:00 Tod Glass V. [facility] ALKALINE PHOSPHATASE 2021-10-17 08:59:00 Tod Glass [facility] ALANINE AMINOTRANSFERASE 2021-10-17 08:59:00 Tod Glass V. [facility] ASPARTATE AMINOTRANSFERASE 2021-10-17 08:59:00 Tod Glass V. [facility] TOTAL PROTEIN 2021-10-17 08:59:00 Tod Glass V. [facility] FRACTIONATED BILIRUBIN 2021-10-17 08:59:00 Tod Glass [facility] PROCALCITONIN 2021-10-17 08:59:00 Tod Glass V. [facility] FL MODIFIED BARIUM SWALLOW 2021-10-16 19:57:25 [facility] 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 [facility] SW[facility] RESPIRATORY PCR PANEL PATH 2021-10-16 13:05:00 [facility] REVIEW [facility] MRSA SCREENING CULTURE 2021-10-15 21:25:00 Felix Kim [facility] TROPONIN T 2021-10-15 18:15:00 Faiz[facility] CT CHEST PULMONARY 2021-10-15 17:58:06 Verónica Thakkar [facility] EMBOLISM W CONTRAST [facility] LEGIONELLA URINE ANTIGEN 2021-10-15 17:17:00 Verónica Thakkar [facility] STREPTOCOCCUS PNEUMONIAE 2021-10-15 17:17:00 Verónica Thakkar [facility] URINE ANTIGEN [facility] STREPTOCOCCAL URINE 2021-10-15 17:17:00 Verónica Thakkar [facility] ANTIGEN PATH REVIEW [facility] LEGIONELLA URINE ANTIGEN 2021-10-15 17:17:00 Verónica Thakkar [facility] PATH REVIEW [facility] FUNGITELL, SERUM 2021-10-15 16:43:00 Bijan [facility] COVID-19 (SARS-COV-2) 2021-10-15 15:08:00 Verónica Thakkar [facility] ASYMPTOMATIC-LT [facility] BLOODCULTURE 2021-10-15 15:08:00 Bijan [facility] LOWER RESPIRATORY CULTURE 2021-10-15 15:08:00 Verónica [facility]kar [facility] W/ GRAM STAIN [facility] COMPREHENSIVE METABOLIC 2021-10-15 15:08:00 Bijan Verónica [facility] PANEL [facility] MAGNESIUM LEVEL 2021-10-15 15:08:00 Bijan [facility] PHOSPHORUS LEVEL 2021-10-15 15:08:00 Bijan [facility] LACTATE DEHYDROGENASE 2021-10-15 15:08:00 Bijan [facility] PROCALCITONIN 2021-10-15 15:08:00 Bijan [facility] TROPONIN T 2021-10-15 15:08:00 Bijan [facility] CREATINE KINASE 2021-10-15 15:08:00 Bijan [facility] CKMB 2021-10-15 15:08:00 Bijan [facility] NT PRO BNP 2021-10-15 15:08:00 Bijan [facility] COMPLETE BLOOD COUNT W/ 2021-10-15 15:08:00 Bijan Verónica [facility] DIFFERENTIAL [facility] PROTHROMBIN TIME 2021-10-15 15:08:00 Bijan [facility] APTT 2021-10-15 15:08:00 Bijan [facility] GLUCOSE LEVEL 2021-10-15 15:08:00 Bijan [facility] BLOOD UREA NITROGEN 2021-10-15 15:08:00 Bijan [facility] ELECTROLYTE PANEL 2021-10-15 15:08:00 Bijan [facility] SERUM CREATININE 2021-10-15 15:08:00 Bijan [facility] .GLOMERULAR FILTRATION 2021-10-15 15:08:00 Verónica Thakkar [facility] RATE [facility] CALCIUM LEVEL TOTAL 2021-10-15 15:08:00 [facility] 2021-10-15 15:08:00 Bijan [facility] ALKALINE PHOSPHATASE 2021-10-15 15:08:00 Verónica Thakkar [facility] ALANINE AMINOTRANSFERASE 2021-10-15 15:08:00 Verónica Thakkar [facility] ASPARTATE AMINOTRANSFERASE 2021-10-15 15:08:00 Verónica [facility] TOTAL PROTEIN 2021-10-15 15:08:00 Bijan [facility] FRACTIONATED BILIRUBIN 2021-10-15 15:08:00 Bijan [facility] Results CBC 2021-10-15 15:08:00 Bijan [facility] MANUAL DIFFERENTIAL 2021-10-15 15:08:00 Bijan [facility] XR CHEST 1 VW 2021-10-15 14:45:00 Bijan [facility] EKG, 12-LEAD (PORTABLE) 2021-10-15 00:00:00 Bijan [facility] COMPLETE BLOOD COUNT W/ 2021-09-05 11:48:00 Bebo [facility] DIFFERENTIAL [facility] COMPREHENSIVE METABOLIC 2021-09-05 11:48:00 Inez Lagunas [facility] PANEL [facility] MAGNESIUM LEVEL 2021-09-05 11:48:00 Bebo [facility] PHOSPHORUS LEVEL 2021-09-05 11:48:[address] [facility] Results CBC 2021-09-05 11:48:00 Bebo [facility] MANUAL DIFFERENTIAL 2021-09-05 11:48:00 Bebo [facility] GLUCOSE LEVEL 2021-09-05 11:48:00 Bebo [facility] BLOOD UREA NITROGEN 2021-09-05 11:48:00 Bebo [facility] ELECTROLYTE PANEL 2021-09-05 11:48:[address] [facility] SERUM CREATININE 2021-09-05 11:48:00 Bebo [facility] .GLOMERULAR FILTRATION 2021-09-05 11:48:00 Inez Lagunas [facility] Tylernany [facility] RATE [facility] CALCIUM LEVEL TOTAL 2021-09-05 11:48:00 Bebo [facility] ALBUMIN LEVEL 2021-09-05 11:48:00 Bebo [facility] Center ALKALINE PHOSPHATASE 2021-09-05 11:48:00 Bebo [facility] ALANINE AMINOTRANSFERASE 2021-09-05 11:48:00 Bebo [facility] Uni versity [facility] ASPARTATE AMINOTRANSFERASE 2021-09-05 11:48:00 Inez Lagunas [facility] TOTAL PROTEIN 2021-09-05 11:48:[address] Bebo [facility] o f [facility] FRACTIONATED BILIRUBIN 2021-09-05 11:48:00 Bebo [facility] STREPTOCOCCUS PNEUMONIAE 2021-09-04 19:38:00 Bebo [facility] URINE ANTIGEN [facility] LEGIONELLA URINE ANTIGEN 2021-09-04 19:38:00 Bebo [facility] LEGIONELLA URINE ANTIGEN 2021-09-04 19:38:00 Bebo [facility] PATH [facility] STREPTOCOCCAL URINE 2021-09-04 19:38:00 Bebo [facility] ANTIGEN PATH REVIEW [facility] LOWER RESPIRATORY CULTURE 2021-09-04 19:36:00 Inez Lagunas [facility] W/ GRAM STAIN [facility] BASIC METABOLIC PANEL, 2021-09-04 09:51:00 Verónica Thakkar [facility] CALCIUM TOTAL [facility] MAGNESIUM LEVEL 2021-09-04 09:51:00 Bijan [facility] PHOSPHORUS LEVEL 2021-09-04 09:51:00 Bijan [facility] TROPONIN T 2021-09-04 09:51:00 Mehrdad Rod [facility] GLUCOSE LEVEL 2021-09-04 09:51:00 Bijan [facility] BLOOD UREA NITROGEN 2021-09-04 09:51:00 [facility] 2021-09-04 09:51:00 Bijan [facility] SERUM CREATININE 2021-09-04 09:51:00 Bijan [facility] .GLOMERULAR FILTRATION 2021-09-04 09:51:00 Verónica Thakkar [facility] RATE [facility] CALCIUM LEVEL TOTAL 2021-09-04 09:51:00 Verónica Thakkar [facility] TROPONIN T 2021-09-04 03:49:00 Bijan [facility] CREATINE KINASE 2021-09-04 03:49:00 Bijan [facility] CKMB 2021-09-04 03:49:00 Bijan [facility] CT CHEST PULMONARY 2021-09-04 03:46:45 Verónica Thakkar [facility] EMBOLISM W CONTRAST [facility] [place] XR CHEST 1 VW 2021-09-03 23:40:27 Jyoti Morales [facility] RESPIRATORY VIRAL 2021-09-03 23:14:00 Jyoti Morales [facility] MULTIPLEX PCR PANEL, [facility] NASOPHARYNGEAL SWAB Center COMPLETE BLOOD COUNT W/ 2021-09-03 21:54:00 Jyoti Morales [facility] DIFFERENTIAL [facility] COMPREHENSIVE METABOLIC 2021-09-03 21:54:00 Jyoti Morales [facility] PANEL [facility] MAGNESIUM LEVEL 2021-09-03 21:54:00 Jyoti Morales [facility] PHOSPHORUS LEVEL 2021-09-03 21:54:00 Jyoti Morales [facility] NT PRO BNP 2021-09-03 21:54:00 Jyoti Morales [facility] TROPONIN T 2021-09-03 21:54:00 Jyoti Morales [facility] Results CBC 2021-09-03 21:54:00 Jyoti Morales [facility] MANUAL DIFFERENTIAL 2021-09-03 21:54:00 Jyoti Morales [facility] GLUCOSE LEVEL 2021-09-03 21:54:00 Jyoti Morales [facility] BLOOD UREA NITROGEN 2021-09-03 21:54:00 Jyoti Morales [facility] ELECTROLYTE PANEL 2021-09-03 21:54:00 Jyoti Morales [facility] SERUM CREATININE 2021-09-03 21:54:00 Jyoti Morales [facility] .GLOMERULAR FILTRATION 2021-09-03 21:54:00 Jyoti Morales [facility] Tylernany [facility] CALCIUM LEVEL TOTAL 2021-09-03 21:54:00 Jyoti Morales [facility] ALBUMIN LEVEL 2021-09-03 21:54:00 Jyoti Morales [facility] ALKALINE PHOSPHATASE 2021-09-03 21:54:00 Jyoti Morales [facility] ALANINE AMINOTRANSFERASE 2021-09-03 21:54:00 Jyoti Morales [facility] ASPARTATE AMINOTRANSFERASE 2021-09-03 21:54:00 Jyoti Morales [facility] TOTAL PROTEIN 2021-09-03 21:54:00 Jyoti Morales [facility] FRACTIONATED BILIRUBIN 2021-09-03 21:54:00 Jyoti Morales [facility] EKG, 12-LEAD (PORTABLE) 2021-09-03 00:00:00 Jyoti Morales [facility] CT CHEST W CONTRAST 2021-08-13 14:15:24 Nicole Del Rosario [facility] POC CREATININE 2021-08-13 13:30:00 Nicole Del Rosario [facility] REPLACEMENT OF GASTROSTOMY 2021-05-22 04:50:00 TobinClaude devine [facility] TUBE, KATJA, MD [facility] INCLUDES REMOVAL, WHEN Center PERFORMED, WITHOUT IMAGING OR ENDOSCOPIC GUIDANCE; NOT REQUIRING REVISION OF GASTROSTOMY TRACT CT CHEST ABDOMEN PELVIS W 2021-04-20 19:35:00 Jacike Mendez [facility] CONTRAST [facility] Center POC CREATININE 2021-04-20 18:02:00 Maria Fernanda [facility] MRI BRAIN W WO CONTRAST 2021-04-20 16:10:00 Jackie Mendez [facility] Plan of Care Planned Activity Planned Date Details Comments Source Future Scheduled 2022-11-01 COVID-19 Vaccination [facility] [place] Test 22:34:47 (#1) [code = COVID-19 MD [facility] (#1)] Center Future Scheduled 2022-10-07 COVID-19 Vaccination [facility] [place] Test 08:50:44 (#1) [code = COVID-19 [facility] (#1)] Center Future Scheduled 2022-10-05 COVID-19 Vaccination [facility] [place] Test 15:48:22 (#1) [code = COVID-19 [facility]ination (#1)] Center Future Scheduled 2022-08-29 COVID-19 Vaccination [facility] [...] Date/Time Type Type Clinicians Facility Department ID 2022-10-08 Outpatient SYSTEM, ANUJ LESLIE [id number] 12:38:41 PROVIDER Bakari zimmerman 2021-04-[address] [facility] [id number] Univers 04:07:38 ity of [facility] 2020-04-12 Outpatient ANUJ LESLIE [id number] 16:09:07 Fuentes zimmerman 2020-02-14 Outpatient SYSTEM, ANUJ LESLIE [id number] 13:23:33 PROVIDER Bakari zimmerman 2022-09-13 2022-09-13 [facility], 1.2.840.1 [id number] Univers 07:30:00 23:59:00 Encounter Maria Fernanda Fu 81082.1.1 i ty of 3.412.2.7 [place] .3.436378 .8 [facility] 2022-09-13 2022-09-13 [facility], 1.2.840.1 [id number] 689 [id number] Univers 07:30:00 23:59:00 Encounter Maria Fernanda V. 75838.1.1 i ty of 3.412.2.7 [place] .3.200763 .8 [facility] 2022-09-13 2022-09-13 Follow-Up [facility], 1.2.840.1 [id number] 11 [id number] Univers 11:30:00 13:09:21 Maria Fernanda V. 77693.1.1 ity of 3.412.2.7 [place] .3.999381 .8 [facility] 2022-09-13 2022-09-13 Follow-Up [facility], 1.2.840.1 [id number] 11 [id number] Univers 11:30:00 13:09:21 Maria Fernanda V. 77690.1.1 ity of 3.412.2.7 [place] .3.761163 .8 [facility] 2022-09-13 2022-09-13 Ancillary Amber, 1.2.840.1 [id number] 1103 [id number] Univers 08:35:00 10:00:00 Procedure Stella 80200.1.1 ity of 3.412.2.7 [place] .3.686847 MD [facility] 2022-09-13 2022-09-13 Ancillary NICHOLE Clark, 1.2.840.1 [id number] 1103 [id number] Univers 08:35:00 10:00:00 Procedure Stella 73180.1.1 ity of 3.412.2.7 [place] .3.170534 MD [facility] 2022-09-13 2022-09-13 Raul Clark, 1.2.840.1 [id number] Univers 00:00:00 00:00:00 Only Stella 34490.1.1 it y of 3.412.2.7 [place] .3.050202 MD [facility] 2022-09-13 2022-09-13 Travel 1.2.840.1 1.2.254.859 2189 [id number] Univers 00:00:00 00:00:00 87402.1.1 350.1.13.41 ity of 3.412.2.[place].698 [place] 084Ramos [facility] 2022-09-13 2022-09-13 Raul Clark, 1.2.840.1 [id number] Univers 00:00:00 00:00:00 Only Stella 84689.1.1 it y of 3.412.2.7 [place] .3.450340 MD [facility] 2022-09-13 2022-09-13 Travel 1.2.840.1 1.2.593.495 9618 [id number] Univers 00:00:00 00:00:00 24397.1.1 350.1.13.41 ity of 3.412.2.7 [place].3.698 [place]3.2040[place] 084Yancy8 MD [facility] 2022-09-05 2022-09-05 Raul Clark, 1.2.840.1 [id number] 1374 Univers 00:00:00 00:00:00 Only Stella 91758.1.1 it y of 3.412.2.7 [place] .3.691440 MD Haines8 [facility] 2022-09-05 2022-09-05 [facility] Amber, 1.2.840.1 [id number] Univers 00:00:00 00:00:00 Only Stella 46575.1.1 it y of 3.412.2.7 [place] .3.763198 MD Haines8 [facility] 2022-08-29 2022-08-29 Telephone Akhtar, 1.2.840.1 [id number] 1103 [id number] Univers 00:00:00 00:00:00 Liz G 22748.1.1 ity of 3.412.2.7 [place] .3.761078 MD [facility] 2022-08-29 2022-08-29 Telephone Akhtar, 1.2.840.1 [id number] 1103 [id number] Univers 00:00:00 00:00:00 Liz G 93911.1.1 ity of 3.412.2.7 [place] .3.954210 MD [facility] 2022-06-19 2022-06-19 Orders Padmini, 1.2.840.1 [id number] Univers 00:00:00 00:00:00 Only Maria Fernanda Cervantes. 41053.1.1 ity of 3.412.2.7 [place] .3.277095 MD [facility] 2022-06-19 2022-06-19 Orders Padmini, 1.2.840.1 [id number] Univers 00:00:00 00:00:00 Only Maria Fernanda V. 81792.1.1 ity of 3.412.2.7 [place] .3.651953 MD [facility] 2022-06-07 2022-06-07 [facility] Amber, 1.2.840.1 [id number] Univers 09:35:06 23:59:00 Encounter Stella 26656.1.1 ity of 3.412.2.7 [place] .3Yancy530741 MD Haines8 [facility] 2022-06-07 2022-06-07 [facility] NICHOLE Amber, 1.2.840.1 [id number] [id number] Univers 09:35:06 23:59:00 Encounter Stella 20927.1.1 ity of 3.412.2.7 [place] .3.658994 MD Haines8 [facility] 2022-06-07 2022-06-07 Follow-Up Padmini, 1.2.840.1 [id number] 10 [id number] Univers 12:00:00 14:14:09 Maria Fernanda V. 58552.1.1 ity of 3.412.2.7 [place] .3.937291 MD [facility] 2022-06-07 2022-06-07 Follow-Up NICHOLE [place], 1.2.840.1 [id number] 10 [id number] Univers 12:00:00 14:14:09 Maria Fernanda V. 44662.1.1 ity of 3.412.2.7 [place] .3.321830 MD [facility] 2022-06-07 2022-06-07 Ancillary Amber, 1.2.840.1 [id number] 1099 [id number] Univers 07:00:00 09:30:00 Procedure Stella 47189.1.1 ity of 3.412.2.7 [place] .3.792114 MD [facility] 2022-06-07 2022-06-07 Ancillary NICHOLE Clark, 1.2.840.1 [id number] 1099 [id number] Univers 07:00:00 09:30:00 Procedure Stella 59833.1.1 ity of 3.412.2.7 [place] .3.571696 MD [facility] 2022-06-07 2022-06-07 Raul Clark, 1.2.840.1 [id number] Univers 00:00:00 00:00:00 Only Stella 29818.1.1 it y of 3.412.2.7 [place] .3.516669 MD [facility] 2022-06-07 2022-06-07 Orders Padmini, 1.2.840.1 [id number] Univers 00:00:00 00:00:00 Only Maria Fernanda Cervantes. 66674.1.1 ity of 3.412.2.7 [place] .3.374783 MD Haines8 [facility] 2022-06-07 2022-06-07 Travel 1.2.840.1 1.2.569.442 5730 [id number] Univers 00:00:00 00:00:00 01599.1.1 350.1.13.41 ity of 3.412.2.[place]7.3.698 [place]3.345670 084.8 MD [facility] 2022-06-07 2022-06-07 Orders Amber, 1.2.840.1 [id number] 0511 Univers 00:00:00 00:00:00 Only Stella 92726.1.1 it y of 3.412.2.7 [place] .3.151546 MD [facility] 2022-06-07 2022-06-07 Orders Padmini, 1.2.840.1 [id number] Univers 00:00:00 00:00:00 Only Maria Fernanda Cervantes. 89845.1.1 ity of 3.412.2.7 [place] .3.538982 MD [facility] 2022-06-07 2022-06-07 Travel 1.2.840.1 1.2.570.953 2122 [id number] Univers 00:00:00 00:00:00 33573.1.1 350.1.13.41 ity of 3.412.2.[place].3.698 [place]3.334383 084.8 MD [facility] 2022-05-09 2022-05-09 Uzma Sanon, 1.2.840.1 [id number] 1099 [id number] Univers 00:00:00 00:00:00 Mini F 63434.1.1 ity of 3.412.2.7 [place] .3.686600 MD Haines8 [facility] 2022-05-09 2022-05-09 Telephone Fab, 1.2.840.1 [id number] 1099 [id number] Univers 00:00:00 00:00:00 Mini F 74278.1.1 ity of 3.412.2.7 [place] .3.979831 MD Haines8 [facility] 2022-05-03 2022-05-03 Raul Clark, 1.2.840.1 [id number] 1783 Univers 00:00:00 00:00:00 Only Stella 28364.1.1 it y of 3.412.2.7 [place] .3.801348 MD Haines8 [facility] 2022-05-03 2022-05-03 Telephone Zulema Cedillo 1.2.840.1 [id number] 1 [id number] Univers 00:00:00 00:00:00 A 28148.1.1 ity of 3.412.2.7 [place] .3Yancy094162 MD Haines8 [facility] 2022-05-03 2022-05-03 Raul Clark, 1.2.840.1 [id number] 4133 Univers 00:00:00 00:00:00 Only Stella 28561.1.1 it y of 3.412.2.7 [place] .3Yancy199959 MD Haines8 [facility] 2022-05-03 2022-05-03 Telephone Zulema Cedillo 1.2.840.1 [id number] 1 [id number] Univers 00:00:00 00:00:00 A 15753.1.1 ity of 3.412.2.7 [place] .3.586174 MD Haines8 [facility] 2021-12-28 2021-12-28 Nurse Willis, 1.2.840.1 [id number] 1094 [id number] Univers 00:00:00 00:00:00 Triage Constantine 10290.1.1 ity of 3.412.2.7 [place] .3.993054 MD [facility]aines8 [facility] 2021-12-28 2021-12-28 Documentat Fossella, 1.2.840.1 [id number] 1 [id number] Univers 00:00:00 00:00:00 ion Maria Fernanda V. 78142.1.1 ity of 3.412.2.7 [place] .3.136275 MD Haines8 [facility] 2021-12-28 2021-12-28 Nurse Lazaro, 1.2.840.1 [id number] 1094 [id number] Univers 00:00:00 00:00:00 Triage Constantine 50461.1.1 ity of 3.412.2.7 [place] .3.258001 MD Haines8 [facility] 2021-12-28 2021-12-28 Documentat Fossella, 1.2.840.1 [id number] 1 [id number] Univers 00:00:00 00:00:00 ion Maria Fernanda V. 42674.1.1 ity of 3.412.2.7 [place] .3.853890 MD Haines8 [facility] 2021-12-20 2021-12-20 Telephone [place], 1.2.840.1 [id number] 1 [id number] Univers 00:00:00 00:00:00 Lolita 67578.1.1 ity of [place]a 3.412.2.7 [place] .3.451725 MD [facility]aines8 [facility] 2021-12-20 2021-12-20 Telephone Wrobleski, 1.2.840.1 [id number] 1 [id number] Univers 00:00:00 00:00:00 Lolita 96323.1.1 ity of [place] 3.412.2.7 [place] .3.839231 MD [facility]aines8 [facility] 2021-12-11 2021-12-11 Telephone Nuvia, 1.2.840.1 [id number] 1093 [id number] Univers 00:00:00 00:00:00 Bibiana C 83578.1.1 ity of 3.412.2.7 [place] .3.578144 MD HainesShaun [facility] 2021-12-11 2021-12-11 Telephone Nuvia, 1.2.840.1 [id number] 1093 [id number] Univers 00:00:00 00:00:00 Bibiana Trevino 77015.1.1 ity of 3.412.2.7 [place] .3.811320 MD [facility]aines8 [facility] 2021-12-05 2021-12-05 Telephone Tyson, 1.2.840.1 [id number] 1093 [id number] Univers 00:00:00 00:00:00 Kasie Lehman 44026.1.1 i ty of 3.412.2.7 [place] .3.371790 MD [facility]aines8 [facility] 2021-12-05 2021-12-05 Telephone Tyson, 1.2.840.1 [id number] 1093 [id number] Univers 00:00:00 00:00:00 Kasie Lehman 86163.1.1 i ty of 3.412.2.7 [place] .3.137711 MD Haines8 [facility] 2021-12-01 2021-12-01 Nurse Marshall, 1.2.840.1 [id number] 2828 Univers 00:00:00 00:00:00 Triage Erin Lehman 46955.1.1 i ty of 3.412.2.7 [place] .3.857890 MD Haines8 [facility] 2021-12-01 2021-12-01 Nurse Marshall, 1.2.840.1 [id number] 1321 Univers 00:00:00 00:00:00 Triage Erin Lehman 22203.1.1 i ty of 3.412.2.7 [place] .3.935971 MD Haines8 [facility] 2021-11-13 2021-11-13 Raul Clark 1.2.840.1 [id number] 3615 Univers 00:00:00 00:00:00 Only Stella 30580.1.1 it y of 3.412.2.7 [place] .3.992343 MD Haines8 [facility] 2021-11-13 2021-11-13 Telephone Edmund, 1.2.840.1 [id number] 1092 [id number] Univers 00:00:00 00:00:00 Daisy Zimmerman 92469.1.1 it y of 3.412.2.7 [place] .3.032239 .8 [facility] 2021-11-13 2021-11-13 Raul Clark, 1.2.840.1 [id number] 7389 Univers 00:00:00 00:00:00 Only Stella 66248.1.1 it y of 3.412.2.7 [place] .3.529732 .8 [facility] 2021-11-13 2021-11-13 Uzma Shaffer, 1.2.840.1 [id number] 1092 [id number] Univers 00:00:00 00:00:00 Daisy N 37912.1.1 it y of 3.412.2.7 [place] .3.696686 .8 [facility] 2021-11-02 2021-11-02 Fito Huber 1.2.840.1 [id number] 1092 [id number] Univers 00:00:00 00:00:00 Only Herrera 62575.1.1 ity of 3.412.2.7 [place] .3.753287 .8 [facility] 2021-11-02 2021-11-02 Nurse Karishma Cuh 1.2.840.1 [id number] 10 [id number] Univers 00:00:00 00:00:00 Triage Abby 79384.1.1 ity of 3.412.2.7 [place] .3.353896 .8 [facility] 2021-10-15 2021-10-24 [facility] Verónica Diaz 1.2.840.1 [id number] Univers 09:35:00 17:00:00 Encounter Thelma Bowser 57453.1.1 ity of Judy, Ed 3.412.2.7 Gio as Tod Glass V. .3.227619 Boni Dominguez .8 [facility] 2021-10-24 2021-10-24 Nurse Paz 1.2.840.1 [id number] 004 [id number] Univers 00:00:00 00:00:00 Triage Amsha 88026.1.1 ity of 3.412.2.7 [place] .3.028807 .8 [facility] 2021-10-23 2021-10-23 Inpatient NICHOLE OBRIEN ANUJ MDA [id number] 20:59:49 21:16:07 BONI Bakari [facility] 2021-10-19 2021-10-19 Surgery Rod, 1.2.840.1 [id number] Univers 15:10:00 15:50:00 Gibbons 77528.1.1 ity of Ali 3.412.2.7 [place] .3.088116 .8 [facility] 2021-10-19 2021-10-19 Anesthesia Jenise Degroot 1.2.840.1 [id number] Univers 13:24:00 13:49:00 Event Dhiraj Fry 22015.1.1 ity of 3.412.2.7 [place] .3.543406 .8 [facility] 2021-10-18 2021-10-18 Prep for O'Brandon, 1.2.840.1 [id number] Univers 00:00:00 00:00:00 Surgery Shena 21779.1.1 [place] .3.1848[place] .8 [facility] 2021-10-17 2021-10-17 Inpatient TOD CAMACHO MDA MDA [id number] 11:46:00 11:46:04 Bakari zimmerman 2021-10-16 2021-10-16 Inpatient EL PADMINI, ANUJ MDA [id number] 14:52:17 14:52:20 MARIA FERNANDA zimmerman 2021-10-16 2021-10-16 Inpatient EL PADMINI, ANUJ MDA [id number] 10:37:11 10:37:14 MARIA FERNANDA zimmerman 2021-10-16 2021-10-16 Inpatient EL CORDELLELLA, ANUJ MDA [id number] 10:05:03 10:05:06 MARIA FERNANDA zimmerman 2021-10-15 2021-10-15 Inpatient NICHOLE KIM ED [facility] [id number] 23:20:17 23:40:10 Bakari zimmerman 2021-10-15 2021-10-15 Travel 1.2.840.1 1.2.120.977 2656 [id number] Univers 00:00:00 00:00:00 90694.1.1 350.1.13.41 ity of 3.412.2.[place].3.698 [place] .3.719706 084.8 .8 [facility] 2021-10-11 2021-10-11 Orders Amber, 1.2.840.1 [id number] Univers 00:00:00 00:00:00 Only Stella 41565.1.1 it y of 3.412.2.7 [place] .3.218811 MD Haines8 [facility] 2021-10-10 2021-10-10 Orders Shantal 1.2.840.1 [id number] Univers 00:00:00 00:00:00 Only Kaylyn, 38554.1.1 ity of Deshawn 3.412.2.7 [place] .3.060677 MD Haines8 [facility] 2021-10-10 2021-10-10 Nurse Dean, 1.2.840.1 [id number] 9664 Univers 00:00:00 00:00:00 Triage Stella Stewart 37336.1.1 ity of 3.412.2.7 [place] .3.711670 MD Haines8 [facility] 2021-10-10 2021-10-10 Telephone Price, 1.2.840.1 [id number] 1091 [id number] Univers 00:00:00 00:00:00 Ileana Ann 32047.1.1 i ty of 3.412.2.7 [place] .3.979701 MD Haines8 [facility] 2021-09-03 2021-09-07 [facility] Verónica Diaz 1.2.840.1 [id number] [facility] 16:59:00 15:45:00 Encounter RodKeven realen 13088.1.1 ity of Gurpreet Estes 3.412.2.7 [place] .3.730491 MD [facility] 2021-09-07 2021-09-07 Travel 1.2.840.1 1.2.147.828 0166 [id number] [facility] 00:00:00 00:00:00 48687.1.1 350.1.13.41 ity of 3.412.2.7 [place]7.3.698 [place] .3.854706 084.8 MD Haines8 [facility] 2021-09-05 2021-09-05 [facility] NICHOLE HART MDA [facility] [id number] MD 11:14:45 11:38:29 SOFI Villegas [facility] 2021-09-03 2021-09-03 Travel 1.2.840.1 1.2.481.953 8073 [id number] Univers 00:00:00 00:00:00 47795.1.1 350.1.13.41 ity of 3.412.2.7 [place]7.3.698 [place] .3.644915 084.8 MD [facility] 2021-09-03 2021-09-03 Telephone John, 1.2.840.1 [id number] 1090 [id number] Univers 00:00:00 00:00:00 Michael Lehman 48042.1.1 ity of 3.412.2.7 [place] .3.059591 MD [facility] 2021-08-22 2021-08-22 Telephone Amber 1.2.840.1 [id number] 1089 [id number] Univers 00:00:00 00:00:00 Stella 08324.1.1 it y of 3.412.2.7 [place] .3.081225 MD [facility] 2021-08-22 2021-08-22 Orders Amber, 1.2.840.1 [id number] 8848 Univers 00:00:00 00:00:00 Only Stella 87320.1.1 it y of 3.412.2.7 [place] .3.826705 MD Haines8 [facility] 2021-08-20 2021-08-20 Orders Fab, 1.2.840.1 [id number] 5119 Univers 00:00:00 00:00:00 Only Lela Ramírez 82189.1.1 ity of 3.412.2.7 [place] .3.562499 MD [facility]8 [facility] 2021-08-18 2021-08-18 Orders Amber, 1.2.840.1 [id number] Univers 00:00:00 00:00:00 Only Stella 79957.1.1 it y of 3.412.2.7 [place] .3.725667 MD [facility]aines8 [facility] 2021-08-18 2021-08-18 Raul [place], 1.2.840.1 [id number] 1089 [id number] Univers 00:00:00 00:00:00 Only Maria Fernanda Fu 19305.1.1 ity of 3.412.2.7 [place] .3.068946 MD Haines8 [facility] 2021-08-17 2021-08-17 Telephone Zulema Cedillo 1.2.840.1 [id number] 1 [id number] Univers 00:00:00 00:00:00 Desiree 98207.1.1 ity of 3.412.2.7 [place] .3.946543 MD Haines8 [facility] 2021-08-14 2021-08-14 Office NICHOLE Piedra, 1.2.840.1 [id number] 7905 Univers 12:15:00 13:20:09 Visit Herrera 44835.1.1 ity of 3.412.2.7 [place] .3Yancy537572 MD [facility]aines8 [facility] 2021-08-14 2021-08-14 Office NICHOLE [place], 1.2.840.1 [id number] 1089 [id number] Univers 08:30:00 10:28:29 Visit Maria Fernanda Fu 76052.1.1 ity of 3.412.2.7 [place] .3.540322 MD [facility] 2021-08-14 2021-08-14 Orders Solo, 1.2.840.1 [id number] Univers 00:00:00 00:00:00 Only Jacki 21054.1.1 ity of 3.412.2.7 [place] .3.843918 MD [facility]8 [facility] 2021-08-14 2021-08-14 Orders Gucci, 1.2.840.1 [id number] Univers 00:00:00 00:00:00 Only Sarah Ybarra 63064.1.1 ity of 3.412.2.7 [place] .3.598098 MD [facility]8 [facility] 2021-08-14 2021-08-14 Travel 1.2.840.1 1.2.819.563 7127 [id number] Univers 00:00:00 00:00:00 31142.1.1 350.1.13.41 ity of 3.412.2.7 2.[place]7.3.698 [place] .3.559015 084.8 MD Haines8 [facility] 2021-08-13 2021-08-13 [facility] 1.2.840.1 [id number] Univers 09:45:00 23:59:00 Encounter 57735.1.1 it y of 3.412.2.7 [place] .3.360034 MD [facility] 2021-08-13 2021-08-13 [facility] NICHOLE [facility] 1.2.840.1 [id number] [id number] Univers 06:35:00 09:44:00 Encounter Nicole 10871.1.1 it y of [place]un[place] 3.412.2.7 [place] .3.266357 MD [facility] 2021-08-13 2021-08-13 [facility], 1.2.840.1 [id number] 9154 Univers 00:00:00 00:00:00 Only Nicole 18243.1.1 ity of [place] 3.412.2.7 [place] .3.173263 MD Haines8 [facility] 2021-08-13 2021-08-13 Travel 1.2.840.1 1.2.031.525 0922 [id number] Univers 00:00:00 00:00:00 59517.1.1 350.1.13.41 ity of 3.412.2.7 2.[place]7.3.698 [place] .3.187303 084.8 MD Haines8 [facility] 2021-08-11 2021-08-11 Refzuleyka [place], 1.2.840.1 [id number] 1089 [id number] Univers 00:00:00 00:00:00 Maria Fernanda Nickie 26074.1.1 ity of 3.412.2.7 [place] .3.557686 MD [facility]aines8 [facility] 2021-08-07 2021-08-07 Orders Fenton, 1.2.840.1 [id number] 7464 Univers 00:00:00 00:00:00 Only Abdirizak 57658.1.1 ity of 3.412.2.7 [place] .3.705841 MD [facility]8 [facility] 2021-07-27 2021-07-27 Telephone Jarrett, 1.2.840.1 [id number] 1 [id number] Univers 00:00:00 00:00:00 Génesis Ann 72878.1.1 ity of 3.412.2.7 [place] .3.115243 MD [facility]8 [facility] 2021-07-27 2021-07-27 Angel Clark, 1.2.840.1 [id number] 2129 Univers 00:00:00 00:00:00 Stella 23416.1.1 it y of 3.412.2.7 [place] .3.350277 MD [facility]8 [facility] 2021-07-26 2021-07-26 Telephone Anais, 1.2.840.1 [id number] 1 [id number] Univers 00:00:00 00:00:00 Génesis Trevino 77647.1.1 ity of 3.412.2.7 [place] .3.682822 MD [facility]8 [facility] 2021-07-26 2021-07-26 Raul Mendez, 1.2.840.1 [id number] Univers 00:00:00 00:00:00 Only Jackie 09297.1.1 ity of 3.412.2.7 [place] .3.777019 MD [facility]8 [facility] 2021-07-26 2021-07-26 Angel Clark, 1.2.840.1 [id number] 5087 Univers 00:00:00 00:00:00 Stella 97271.1.1 it y of 3.412.2.7 [place] .3.291608 MD [facility]8 [facility] 2021-07-19 2021-07-19 Telephone Edmund, 1.2.840.1 [id number] 1088 [id number] Univers 00:00:00 00:00:00 Daisy Zimmerman 02623.1.1 it y of 3.412.2.7 [place] .3.612184 MD [facility]8 [facility] 2021-07-12 2021-07-12 Telephone Amber, 1.2.840.1 [id number] 1088 [id number] Univers 00:00:00 00:00:00 Stella 46095.1.1 it y of 3.412.2.7 [place] .3.629800 MD [facility]aines8 [facility] 2021-07-11 2021-07-11 Raul Clark, 1.2.840.1 [id number] 4796 Univers 00:00:00 00:00:00 Only Stella 74440.1.1 it y of 3.412.2.7 [place] .3.471846 MD [facility]8 [facility] 2021-07-11 2021-07-11 Telephone Price 1.2.840.1 [id number] 1088 [id number] Univers 00:00:00 00:00:00 Ileana Ann 76946.1.1 i ty of 3.412.2.7 [place] .3.735281 MD [facility] 2021-07-02 2021-07-02 Raul Clark, 1.2.840.1 [id number] 0863 Univers 00:00:00 00:00:00 Only Stella 32720.1.1 it y of 3.412.2.7 [place] .3Yancy422903 MD [facility]aines8 [facility] 2021-06-27 2021-06-27 Raul Clark, 1.2.840.1 [id number] 1737 Univers 00:00:00 00:00:00 Only Stella 56123.1.1 it y of 3.412.2.7 [place] .3Yancy195875 MD [facility]8 [facility] 2021-06-25 2021-06-25 Raul Clark, 1.2.840.1 [id number] [facility] 00:00:00 00:00:00 Only Stella 88049.1.1 it y of 3.412.2.7 [place] .3.963696 MD [facility]8 [facility] 2021-06-14 2021-06-14 Telephone Ger, 1.2.840.1 [id number] Univers 00:00:00 00:00:00 Lolita 47922.1.1 ity of [place] 3.412.2.7 [place] .3.841905 MD [facility]aines8 [facility] 2021-06-11 2021-06-11 Raul Clark, 1.2.840.1 [id number] Univers 00:00:00 00:00:00 Only Stella 74134.1.1 it y of 3.412.2.7 [place] .3.303812 MD [facility]aines8 [facility] 2021-06-09 2021-06-09 Angel Rivas, 1.2.840.1 [id number] Univers 00:00:00 00:00:00 Yudith Lehman 35467.1.1 ity of 3.412.2.7 [place] .3.973042 MD [facility]8 [facility] 2021-06-06 2021-06-06 Telephone Anais, 1.2.840.1 [id number] Univers 00:00:00 00:00:00 Génesis Trevino 14681.1.1 ity of 3.412.2.7 [place] .3.801673 MD [facility] 2021-05-21 2021-05-21 Surgery Tobin, 1.2.840.1 [id number] Univers 14:50:00 15:20:00 Claude 77208.1.1 ity of 3.412.2.7 [place] .3.815190 MD [facility]8 [facility] 2021-05-21 2021-05-21 Hospital Tobin, 1.2.840.1 [id number] Univers 12:54:00 13:30:00 Encounter Claude 98568.1.1 it y of 3.412.2.7 [place] .3.048928 MD [facility] 2021-05-21 2021-05-21 Travel 1.2.840.1 1.2.758.113 [id number] Univers 00:00:00 00:00:00 01333.1.1 350.1.13.41 ity of 3.412.2.[place]3.698 [place] .3.843203 084.8 MD [facility] 2021-05-17 2021-05-17 Prep for Yannick, 1.2.840.1 [id number] Univers 00:00:00 00:00:00 Surgery [place] N 76872.1.1 it y of 3.412.2.7 [place] .3.243542 MD [facility] 2021-05-17 2021-05-17 Raul Clark, 1.2.840.1 [id number] Univers 00:00:00 00:00:00 Only Stella 04358.1.1 it y of 3.412.2.7 [place] .3.569623 MD [facility] 2021-05-16 2021-05-16 Raul Clark, 1.2.840.1 [id number] [facility] 00:00:00 00:00:00 Only Stella 98183.1.1 it y of 3.412.2.7 [place] .3.487399 MD [facility] 2021-05-16 2021-05-16 Telephone Ger, 1.2.840.1 [id number] Univers 00:00:00 00:00:00 Lolita 43714.1.1 ity of [place] 3.412.2.7 [place] .3.752843 MD [facility]8 [facility] 2021-05-16 2021-05-16 Telephone Ger, 1.2.840.1 [id number] [facility] 00:00:00 00:00:00 Lolita 30523.1.1 ity of [place] 3.412.2.7 [place] .3.653164 MD [facility] 2021-05-14 2021-05-14 Orders Tegan, 1.2.840.1 [id number] Univers 00:00:00 00:00:00 Only Giovanna Tanner 16952.1.1 i ty of 3.412.2.7 [place] .3.876085 MD [facility] 2021-04-27 2021-04-27 Raul Clark 1.2.840.1 [id number] [facility] 00:00:00 00:00:00 Only Stella 22660.1.1 it y of 3.412.2.7 [place] .3.566550 MD [facility] 2021-04-25 2021-04-25 Raul Clark 1.2.840.1 [id number] [facility] 00:00:00 00:00:00 Only Stella 08437.1.1 it y of 3.412.2.7 [place] .3.122702 MD [facility] 2021-04-23 2021-04-23 [facility] Tejinder, Raymundo 1.2.840.1 [id number] Univers 09:38:02 23:59:00 Encounter 93710.1.1 it y of 3.412.2.7 [place] .3.425675 MD [facility] 2021-04-23 2021-04-23 Raul Del Rosario, 1.2.840.1 [id number] Univers 00:00:00 00:00:00 Only Nicole 08915.1.1 ity of [place] 3.412.2.7 [place] .3.522707 MD [facility] 2021-04-23 2021-04-23 Raul Del Rosario, 1.2.840.1 [id number] Univers 00:00:00 00:00:00 Only Nicole 64348.1.1 ity of [place] 3.412.2.7 [place] .3.094043 MD [facility] [facility] 2021-04-23 2021-04-23 Raul Del Rosario, 1.2.840.1 [id number] Univers 00:00:00 00:00:00 Only Nicole 72914.1.1 ity of [place] 3.412.2.7 [place] .3.031399 MD [facility] 2021-04-23 2021-04-23 Raul Del Rosario, 1.2.840.1 [id number] Univers 00:00:00 00:00:00 Only Nicole 30176.1.1 ity of [place] 3.412.2.7 [place] .3.254542 MD [facility] 2021-04-23 2021-04-23 Travel 1.2.840.1 1.2.837.344 [id number] Univers 00:00:00 00:00:00 01573.1.1 350.1.13.41 ity of 3.412.2.7 2.[place].7.3.698 [place] .3.305969 084.8 MD [facility] 2021-04-20 2021-04-20 [facility], 1.2.840.1 [id number] Univers 11:46:55 23:59:00 Encounter Maria Fernanda V. 44933.1.1 i ty of 3.412.2.7 [place] .3.870418 MD [facility] 2021-04-20 2021-04-20 Ancillary NICHOLE [place], 1.2.840.1 [id number] Univers 09:15:00 11:00:00 Procedure Maria Fernanda V. 99920.1.1 i ty of 3.412.2.7 [place] .3.922988 MD [facility] 2021-04-20 2021-04-20 Travel 1.2.840.1 1.2.751.794 7660 [id number] Univers 00:00:00 00:00:00 08109.1.1 350.1.13.41 ity of 3.412.2.7 2.[place].7.3.698 [place] .3.381743 084.8 MD [facility] 2021-04-16 2021-04-16 [facility], 1.2.840.1 [id number] Univers 09:30:00 23:59:00 Encounter Mary Beth Ann 27448.1.1 i ty of 3.412.2.7 [place] .3.202727 MD [facility] 2021-04-16 2021-04-16 Office Rah, 1.2.840.1 [id number] Univers 09:00:00 10:36:47 Visit Herrera 57998.1.1 ity of 3.412.2.7 [place] .3.957945 MD [facility] 2021-04-16 2021-04-16 Travel 1.2.840.1 1.2.005.635 [id number] [id number] Univers 00:00:00 00:00:00 11751.1.1 350.1.13.41 ity of 3.412.2.7 2.[place]7.3.698 [place] .3.169186 084.8 MD [facility] 2021-04-13 2021-04-13 Orders Enzo, 1.2.840.1 [id number] Univers 00:00:00 00:00:00 Only Florinavaleriano 23102.1.1 ity of 3.412.2.7 [place] .3.820755 MD Haines8 [facility] 2021-04-07 2021-04-07 Raul Murguia 1.2.840.1 [id number] Univers 00:00:00 00:00:00 Only Kaylyn, 03884.1.1 ity of [place] 3.412.2.7 [place] .3.453519 MD Haines8 [facility] 2021-04-07 2021-04-07 Nurse Brandon, 1.2.840.1 [id number] Univers 00:00:00 00:00:00 Mario Lehman 38623.1.1 it y of 3.412.2.7 [place] .3.878190 MD Haines8 [facility] 2021-04-05 2021-04-05 Raul Clark, 1.2.840.1 [id number] Univers 00:00:00 00:00:00 Only Stella 83774.1.1 it y of 3.412.2.7 [place] .3.723438 MD Haines8 [facility] 2021-04-04 2021-04-04 Angel Gonzalez 1.2.840.1 [id number] Univers 00:00:00 00:00:00 Gurpreet Ramírez 00737.1.1 it y of 3.412.2.7 [place] .3.744065 MD Haines8 [facility] 2021-04-04 2021-04-04 Gabrielle Osborne 1.2.840.1 [id number] Univers 00:00:00 00:00:00 Graciela 92660.1.1 ity of 3.412.2.7 [place] .3.633756 MD Haines8 [facility] 2021-04-03 2021-04-03 Gillian Marr 1.2.840.1 [id number] Univers 14:00:00 14:00:00 Alina 17707.1.1 ity of 3.412.2.7 [place] .3.713836 MD Haines8 [facility] 2021-03-30 2021-03-30 Raul Clark, 1.2.840.1 [id number] Univers 00:00:00 00:00:00 Only Stella 13272.1.1 it y of 3.412.2.7 [place] .3.816109 MD Haines8 [facility] 2021-03-29 2021-03-29 Raul Clark 1.2.840.1 [id number] Univers 00:00:00 00:00:00 Only Stella 05021.1.1 it y of 3.412.2.7 [place] .3.551377 MD Haines8 [facility] 2021-03-27 2021-03-27 Raul Clark 1.2.840.1 [id number] Univers 00:00:00 00:00:00 Only Stella 25525.1.1 it y of 3.412.2.7 [place] .3.715680 MD Haines8 [facility] 2021-03-27 2021-03-27 Angel Santillan, 1.2.840.1 [id number] [id number] Univers 00:00:00 00:00:00 Wilfredo Stewart 78721.1.1 ity of 3.412.2.7 [place] .3.193283 MD [facility] 2021-03-09 2021-03-09 Raul Perez, 1.2.840.1 [id number] Univers 00:00:00 00:00:00 Only Tanja Mora 99922.1.1 ity of 3.412.2.7 [place] .3.893001 MD [facility] 2021-03-08 2021-03-08 Raul Clark 1.2.840.1 [id number] Univers 00:00:00 00:00:00 Only Stella 96832.1.1 it y of 3.412.2.7 [place] .3.681337 .8 [facility] 2021-03-07 2021-03-07 Orders [place]mimi, 1.2.840.1 [id number] Univers 00:00:00 00:00:00 Only Tanja Mora 35867.1.1 ity of 3.412.2.7 [place] .3.277659 .8 [facility] 2021-03-07 2021-03-07 Documentat Odpadmini, 1.2.840.1 [id number] Univers 00:00:00 00:00:00 ion Lenarben 58923.1.1 ity of 3.412.2.7 [place] .3.173781 .8 [facility] 2021-03-07 2021-03-07 Angel Rivas, 1.2.840.1 [id number] Univers 00:00:00 00:00:00 Yudith Lehman 69240.1.1 ity of 3.412.2.7 [place] .3.738842 .8 [facility] 2021-03-07 2021-03-07 Documentat Shivam, 1.2.840.1 [id number] Univers 00:00:00 00:00:00 ion Sahara 36539.1.1 ity of [place] 3.412.2.7 [place] .3.139045 .8 [facility] 2021-02-16 2021-03-02 Inpatient BHARGAV [facility]ITH [facility] [id number] 13:50:00 18:30:00 IRINA zimmerman 2021-03-02 2021-03-02 Inpatient NICHOLE SMITH MDA MDA [id number] 10:28:13 10:52:29 IRINA zimmerman 2021-03-01 2021-03-01 Inpatient GABRIELLE SQUIRES MDA, MDA [id number] 13:48:32 14:24:14 Bakari o erasmo 2021-02-28 2021-02-28 Inpatient EL GABRIELLE GONZALEZ MDA MDA [id number] 15:34:04 16:08:02 Bakari zimmerman 2021-02-27 2021-02-27 Inpatient EL FOSSELLA, MDA MDA [id number] 11:31:18 11:31:23 MARIA FERNANDA zimmerman 2021-02-23 2021-02-23 Inpatient EL JOSE, MDA MDA [id number] 08:50:18 09:09:38 MARCIN zimmerman 2021-02-20 2021-02-20 Inpatient EL HALM, MDA MDA [id number] 21:52:07 22:45:31 MAYANK zimmerman 2021-02-19 2021-02-19 Inpatient EL HALM, MDA MDA [id number] 16:34:08 16:35:56 MAYANK zimmerman 2021-02-19 2021-02-19 Inpatient EL HALM, MDA MDA [id number] 14:32:55 14:50:27 MAYANK zimmerman 2021-02-19 2021-02-19 Inpatient EL FOSSELLA, MDA MDA [id number] 11:06:11 11:06:14 MARIA FERNANDA zimmerman 2021-02-18 2021-02-18 Inpatient EL HALM, MDA MDA [id number] 15:44:22 16:22:28 MAYANK zimmerman 2021-02-17 2021-02-17 Inpatient EL TOD GLASS MDA MDA [id number] 03:53:53 04:06:50 Bakari zimmerman 2021-01-21 2021-01-30 Inpatient ER ODARO, [facility] [id number] 21:38:00 18:36:00 BENEDICTO zimmerman 2021-01-30 2021-01-30 Inpatient EL FOSSELLA, MDA MDA [id number] 15:18:04 15:18:06 MARIA FERNANDA zimmerman 2021-01-28 2021-01-28 Inpatient EL AL AMERI, MDA MDA [id number] 13:47:27 13:49:05 RASHAAD zimmerman 2021-01-25 2021-01-25 Inpatient EL AL AMERI, MDA MDA [id number] 20:37:26 20:37:30 RASHAAD zimmerman 2021-01-24 2021-01-24 Inpatient EL AL AMERI, MDA MDA [id number] 08:18:01 08:38:37 RASHAAD zimmerman 2021-01-22 2021-01-22 Inpatient EL AL AMERI, MDA MDA [id number] 19:02:05 19:25:15 RASHAAD zimmerman 2021-01-04 2021-01-19 Inpatient ER SIMBAQUEBA [facility] [id number] 11:01:00 16:25:00 Levi RAJPUT 2021-01-18 2021-01-18 Inpatient EL FOSSELLA, MDA MDA [id number] 11:15:46 11:15:49 MARIA FERNANDA zimmerman 2021-01-15 2021-01-15 Inpatient EL FOSSELLA, MDA MDA [id number] 10:54:17 10:54:19 MARIA FERNANDA zimmerman 2021-01-14 2021-01-14 Inpatient EL ROXY, MDA MDA [id number] 12:12:50 13:22:39 TORRESJOY Nye n 2021-01-12 2021-01-12 Inpatient EL FOSSELLA, MDA MDA [id number] 11:16:26 11:16:28 MARIA FERNANDA zimmerman 2021-01-10 2021-01-10 Inpatient EL FOSSELLA, MDA MDA [id number] 12:34:26 12:34:30 MARIA FERNANDA zimmerman 2021-01-09 2021-01-09 Inpatient EL ESTES, MDA MDA [id number] 21:30:37 21:42:18 GURPREET zimmerman 2021-01-08 2021-01-08 Inpatient EL ESTES, MDA MDA [id number] 11:15:00 12:40:27 GURPREET zimmerman 2021-01-07 2021-01-07 Inpatient EL ALEXUS, MDA MDA [id number] 09:48:34 10:43:19 BONI zimmerman 2021-01-05 2021-01-05 Inpatient EL FOSSELLA, MDA MDA [id number] 10:28:44 10:28:46 MARIA FERNANDA zimmerman 2020-12-26 2020-12-26 Outpatient EL FOSSELLA, MDA MDA [id number] 13:17:22 13:49:03 MARIA FERNANDA zimmerman 2020-12-22 2020-12-22 Outpatient EL FOSSELLA, MDA MDA [id number] 15:44:28 15:44:28 MARIA FERNANDA zimmerman 2020-12-20 2020-12-20 Outpatient EL FOSSELLA, MDA MDA [id number] 14:45:38 15:10:28 MARIA FERNANDA zimmerman 2020-12-19 2020-12-19 Outpatient EL FOSSELLA, MDA MDA [id number] 15:02:13 15:33:05 MARIA FERNANDA zimmerman 2020-12-18 2020-12-18 Outpatient EL FOSSELLA, MDA MDA [id number] 14:30:00 23:59:00 MARIA FERNANDA zimmerman 2020-12-18 2020-12-18 Outpatient EL RAYMUNDO MARR MDA MDA [id number] 15:34:19 15:34:19 Bakari zimmerman 2020-12-18 2020-12-18 Outpatient EL FOSSELLA, MDA MDA [id number] 14:39:45 15:30:31 MARIA FERNANDA zimmerman 2020-12-15 2020-12-15 Outpatient EL FOSSELLA, MDA MDA [id number] 14:01:01 14:06:41 MARIA FERNANDA zimmerman 2020-11-20 2020-11-24 Inpatient X ENZORUSSELL [facility] PUJA [id number] Univers 00:18:00 16:31:00 [facility] 2020-10-26 2020-10-26 Outpatient R [facility] [id number] Univers 09:00:00 09:00:00 [facility] 2020-10-17 2020-10-17 Outpatient R DIOGO [facility] [id number] Univers 09:30:00 09:30:00 [facility] 2020-07-27 2020-07-27 Outpatient R BRANDY [facility] [id number] Univers 14:30:00 14:30:00 ATTENDING [facility] 2020-07-05 2020-07-05 Outpatient EL TADEO, MDA MDA [id number] 10:29:44 10:55:21 HERRERA zimmerman 2020-04-28 2020-04-29 Inpatient HCAMN DANDRE [id number] [facility] 02:28:00 09:27:09 18 [facility] 2020-04-27 2020-04-27 Outpatient EL FOSSELLA, MDA MDA [id number] 06:26:24 06:26:24 MARIA FERNANDA zimmerman 2020-04-25 2020-04-25 Outpatient EL FOSSELLA, MDA MDA [id number] 15:16:25 23:59:00 MARIA FERNANDA zimmerman 2020-04-25 2020-04-25 Outpatient EL FOSSELLA, MDA MDA [id number] 16:52:13 16:52:13 MARIA FERNANDA zimmerman 2020-04-21 2020-04-21 Outpatient EL FOSSELLA, MDA MDA [id number] 12:34:59 15:51:01 MARIA FERNANDA zimmerman 2020-04-17 2020-04-17 Outpatient EL ROCKY RODRIGUEZ MDA MDA [id number] 11:29:21 23:59:00 Bakari zimmerman 2020-04-17 2020-04-17 Outpatient EL MDA MDA [id number] 09:00:09 11:28:00 Bakari zimmerman 2020-04-17 2020-04-17 Outpatient EL ROSA MARIA, MDA MDA [id number] 09:38:52 11:12:52 CODY zimmerman 2020-04-14 2020-04-14 Outpatient EL MDA MDA [id number] 11:14:57 23:59:00 Bakari o erasmo 2020-04-14 2020-04-14 Outpatient EL AURELIANO EDWARD MDA MDA [id number] 12:35:21 13:51:10 Bakari o erasmo 2020-04-14 2020-04-14 Outpatient EL MDA MDA [id number] 08:26:38 11:13:00 Bakari luis zimmerman 2020-04-13 2020-04-13 Outpatient EL MDA MDA [id number] 15:45:00 23:59:00 Bakari o erasmo 2020-04-13 2020-04-13 Outpatient EL MDA MDA [id number] 13:53:11 15:44:00 Bakari o n 2020-04-13 2020-04-13 Outpatient EL MDA MDA [id number] MD 13:27:19 13:52:00 Bakari zimmerman 2020-04-13 2020-04-13 Outpatient EL MDA MDA [id number] MD 10:45:00 13:26:00 Bakari zimmerman 2020-04-13 2020-04-13 Outpatient EL ROSA MARIA, MDA MDA [id number] MD 07:39:14 10:44:00 CODY zimmerman 2020-04-12 2020-04-12 Outpatient EL ILIESCU, MDA MDA [id number] MD 12:45:00 23:59:00 ORACIO zimmerman 2020-04-11 2020-04-11 Outpatient EL BRENDON, MDA MDA [id number] MD 11:45:00 23:59:00 WILFREDO zimmerman 2020-04-11 2020-04-11 Outpatient EL BRENDON, MDA MDA [id number] MD 11:23:21 11:23:21 WILFREDO zimmerman 2020-03-31 2020-03-31 Outpatient EL CONATY, MDA MDA [id number] 08:00:00 23:59:00 MAURICIO zimmerman 2020-03-31 2020-03-31 Outpatient EL ROSA MARIA, MDA MDA [id number] 08:51:09 09:59:36 CODY zimmerman 2020-03-20 2020-03-20 Outpatient EL ILIESCU, MDA MDA [id number] 10:02:47 10:02:47 ORACIO zimmerman 2020-03-20 2020-03-20 Outpatient EL REGINA, MDA MDA [id number] 09:57:25 09:57:25 HAYLEY zimmerman 2020-03-10 2020-03-10 Outpatient EL REGINA, MDA MDA [id number] 08:10:34 08:10:34 HAYLEY Villegas o erasmo 2020-03-02 2020-03-02 Outpatient EL REGINA, MDA MDA [id number] 12:40:44 23:59:00 HAYLEY Villegas o erasmo 2020-03-02 2020-03-02 Outpatient EL ILIESCU, MDA MDA [id number] 10:20:00 14:05:06 ORACIO smith n 2020-03-02 2020-03-02 Outpatient NICHOLE TAPIA MDA MDA [id number] 12:15:00 12:39:00 HAYLEY Bakari o n 2020-03-02 2020-03-02 Outpatient NICHOLE REECE MDA MDA [id number] 10:29:25 10:29:25 ORACIO Bakari o n 2020-03-02 2020-03-02 Outpatient EL MDA MDA [id number] MD 10:00:01 10:00:10 Bakari o n 2020-02-29 2020-02-29 Outpatient EL MDA MDA [id number] MD 13:58:52 14:24:33 Bakari o erasmo 2019-08-26 2019-08-26 Outpatient PASCALE [facility] [id number] [facility] 12:48:00 12:48:00 [facility] 2019-08-12 2019-08-15 Inpatient HCAMN DANDRE [id number] 20:09:00 22:33:31 69 [facility] Results Test Description Test Time Test Comments Results Result [facility] e Comments Fractionated 2022-09-13 [employer] Bilirubin 14:14:11 Total<0.3<=1. Willis CARDENAS 2 mg/dLMAYS [facility] Fractionated 2022-09-13 [facility] f Bilirubin 14:14:11 Total<0.3<=1. Willis CARDENAS 2 mg/dLMAYS [facility] Fractionated 2022-09-13 [facility] o f Bilirubin 14:14:11 Total<0.3<=1. Willis CARDENAS 2 mg/dLMAYS [facility] Glomerular Filtration Rate 2022-09-13 14:14:10 Test Item Value Reference Range Interpretation Comme nts eGFR (test code = 105 See_Comment [place] [address]-9) the 2020 CKD-EP I creatinine equation using creatinine, patient's age, and sex for adults 18 years of age and older. Other fa ctors, especially musc le mass, may affect accuracy and need to be considered.Acco rding to the Kidney Disease: Improving Global Outcomes (KDIGO) CKD Work Group 2012 Clinical Practice Guidel ine, chronic kidney disease (CKD) is defined as the abnormal ities of kidney structure or fu nction, present for more than 3 months, with implications fo r health. CKD should be class ified by cause, GFR category, a nd albuminuria category. KDIGO guidelines provide the fol lowing GFR categoriesStage Description GFR mL/min/1.73 m2G 1* Normal or high >= 90G2* M ildly decreased 60-89G3a Mildly to moderately decreased 45-59 G3b Moderately to severely dec reased 30-44G4 Severely decrea sed 15-29G5 Kidney failure <15*In the absence of evid ence of kidney damage, neither G1 nor G2 fulfill criteri a for CKD. Testing Perform ed at [facility] [facility], [address], [address], [place], [place] [address] [Automated message] The sy stem which generated this result transmitted ref erence range: >=60 mL/min/1.7 3 sq. m. The reference range was not used to interpret this result as normal/abnormal . PAIGE (test code = Schedule same day PAIGE) [facility] 20[facility]-13 14:14:10 Test Item Value Reference Range Interpretation Comments eGFR (test 105 See_Comment The eGFRcr is c alculated code = with the 2020 C KD-EPI 34782-6) creatinine equa tion using creatinin e, patient's age, and sex for adults 18 y ears of age and older. Other factors, especi ally muscle mass, ma y affect accuracy and ne ed to be considered.Acco rding to the Kidney Dise ase: Improving Globa l Outcomes (KDIGO ) CKD Work Group 2012 Clinical Practice Guidel ine, chronic kidney disease (CKD) is define d as the abnormalities o f kidney structure or fu nction, present for mor e than 3 months, with implications fo r health. CKD should be c lassified by cause, GFR c ategory, and albuminuria category. KDIGO guidelines prov eloy the following GFR categoriesStage Description GFR mL/min/1.73 m2G 1* Normal or high >= 90G2 * Mildly decreased 60-89 G3a Mildly to moder ately decreased 45-59 G3b Moderately to s everely decreased 30-44 G4 Severely decrea sed 15-29G5 Kidney failure <15*In the abse nce of evidence of kid alicia damage, neither G1 nor G2 fulfill crit eria for CKD. Testing Pe rformed at [facility] Lab [facility], [address], [address], [place] [address] [Autom ated message] The sy stem which generated this result transmit lakhwinder reference range : >=60 mL/min/1.73 sq. m. The reference range was not used to interpr et this result as normal/abnormal . PAIGE (test Schedule same day code = PAIGE) tests[facility] 2022-09-13 14:14:10 Test Item Value Reference Range Interpretation Comments eGFR (test 105 See_Comment The eGFRcr is c alculated code = with the 2020 C KD-EPI 74529-0) creatinine equa tion using creatinin e, patient's age, and sex for adults 18 y ears of age and older. Other factors, especi ally muscle mass, ma y affect accuracy and ne ed to be considered.Acco rding to the Kidney Dise ase: Improving Globa l Outcomes (KDIGO ) CKD Work Group 2012 Clinical Practice Guidel ine, chronic kidney disease (CKD) is define d as the abnormalities o f kidney structure or fu nction, present for mor e than 3 months, with implications fo r health. CKD should be c lassified by cause, GFR c ategory, and albuminuria category. KDIGO guidelines prov eloy the following GFR categoriesStage Description GFR mL/min/1.73 m2G 1* Normal or high >= 90G2 * Mildly decreased 60-89 G3a Mildly to moder ately decreased 45-59 G3b Moderately to s everely decreased 30-44 G4 Severely decrea sed 15-29G5 Kidney failure <15*In the abse nce of evidence of kid alicia damage, neither G1 nor G2 fulfill crit eria for CKD. Testing Pe rformed at [facility], [address], [address], [place] [address] [Autom ated message] The sy stem which generated this result transmit lakhwinder reference range : >=60 mL/min/1.73 sq. m. The reference range was not used to interpr et this result as normal/abnormal . PAIGE (test Schedule same day code = PAIGE) tests[facility]t [facility] [id number] 14:14:09 Test Item Value Reference Range Interpretation Comments Total Protein 7.2 g/dL 6.4-8.3 Testing Perfor med (test code = at [facility] 2885-2) [employer] [facility], [address], [place], [place] [address] PAIGE (test code = Schedule same day PAIGE) tests/clinic [facility] [id number] 14:14:09 Test Item Value Reference Range Interpretation Comments Total Protein 7.2 g/dL 6.4-8.3 Testing Perfor med (test code = at [facility] 2885-2) [employer] [facility], [address], [place] [address] PAIGE (test code = Schedule same day PAIGE) tests/clinic [facility] [id number] 14:14:09 Test Item Value Reference Range Interpretation Comments Total Protein 7.2 g/dL 6.4-8.3 Testing Perfor med (test code = at [facility] 2885-2) [employer] [facility], [address], [address], [place], [place] [address] PAIGE (test code = Schedule same day PAIGE) [facility] [id number] 14:14:08 Test Item Value Reference Range Interpretation Comments Calcium Lvl (test 9.4 mg/dL 8.4-10.2 Testing Pe rformed code = 99028-8) at B Lab [employer] [facility], [address], [address], [place], [place] [address] PAIGE (test code = Schedule same day PAIGE) tests[facility] [id number] 14:14:08 Test Item Value Reference Range Interpretation Comments Calcium Lvl (test 9.4 mg/dL 8.4-10.2 Testing Pe rformed code = 71757-3) at [facility] Lab [employer] [facility], [address], [place], [place] [address] PAIGE (test code = Schedule same day PAIGE) tests[facility]inic [facility] [id number] 14:14:08 Test Item Value Reference Range Interpretation Comments Calcium Lvl (test 9.4 mg/dL 8.4-10.2 Testing Pe rformed code = 24437-6) at [facility] Lab [employer] [facility], [facility], [address], [place], [place] [address] PAIGE (test code = Schedule same day PAIGE) tests[facility]clinic [facility] [id number] 14:14:07 Test Item Value Reference Range Interpretation Comments Alk Phos (test 94 U/L 40-129 Testing Perfo rmed at code = 6768-6) [facility], [address] [place] [address], [address], [place] [address] PAIGE (test code Schedule same day = PAIGE) tests[facility]clinic [facility] [id number] 14:14:07 Test Item Value Reference Range Interpretation Comments Alk Phos (test 94 U/L 40-129 Testing Perfo rmed at code = 6768-6) [facility] Amb[facility], [address], [place] [address] PAIGE (test code Schedule same day = PAIGE) tests/clinic [facility] [id number] 14:14:07 Test Item Value Reference Range Interpretation Comments Alk Phos (test 94 U/L 40-129 Testing Perfo rmed at code = 6768-6) [facility] Ambul [facility], [address] [place] [address], [address], [place] [address] PAIGE (test code Schedule same day = PAIGE) tests/clinic [facility] [id number] 14:14:06 Test Item Value Reference Range Interpretation Comments Sodium Lvl (test 141 See_Comment Testing Per formed code = 2951-2) at [facility] Lab [facility], [address] [place] [address], [address], [place], [place] [address] [Automated mess age] The system [employer] generated this result transmit lakhwinder reference range : 136 - 145 mEq/L . The reference r jose was not used to interpret this result as normal/abnormal . Potassium Lvl 3.9 See_Comment Testing Perfor med (test code = at [facility] Lab 2823-3) [facility], [address] [place] [address], [address], [place], [place] [address] [Automated mess age] The system Zonoffic h generated this result transmit lakhwinder reference range : 3.5 - 5.1 mEq/L . The reference r jose was not used to interpret this result as normal/abnormal . Chloride (test 105 See_Comment Testing Perfo rmed code = 2075-0) at [facility], [address] [place] [address], [address], [place], [place] [address] [Automated mess age] The system [employer] generated this result transmit lakhwinder reference range : 98 - 107 mEq/L. Th e reference range was not used to interpret this result as normal/abnormal . CO2 (test code = 25 See_Comment Testing Per formed 2028-02) at [facility], [address] [place] [address], [address], [place], [place] [address] [Automated mess age] The system [employer] generated this result transmit lakhwinder reference range : 22 - 29 mEq/L. The reference range was not used to interpret this result as normal/abnormal . Anion Gap (test 11 See_Comment Testing Perf ormed code = 50739-5) at [facility], [address] [place] [address], [address], [place], [place] [address] [Automated mess age] The system [employer] generated this result transmit lakhwinder reference range : 4 - 14 mEq/L. The reference range was not used to interpret this result as normal/abnormal . PAIGE (test code = Schedule same day PAIGE) tests/clinic appt [facility] [place] [id number] 14:14:06 Test Item Value Reference Range Interpretation Comments Sodium Lvl (test 141 See_Comment Testing Per formed code = 2951-2) at [facility], [address] [place] [address], [address], [place], [place] [address] [Automated mess age] The system [employer] generated this result transmit lakhwinder reference range : 136 - 145 mEq/L . The reference r jose was not used to interpret this result as normal/abnormal . Potassium Lvl 3.9 See_Comment Testing Perfor med (test code = at [facility] 2823-3) [facility], [facility] [address], [place], [place] [address] [Automated mess age] The system Zonoffic Tomorrow generated this result transmit lakhwinder reference range : 3.5 - 5.1 mEq/L . The reference r jose was not used to interpret this result as normal/abnormal . Chloride (test 105 See_Comment Testing Perfo rmed code = 2075-0) at [facility], [facility], [address], [place], [place] [address] [Automated mess age] The system AutoShag generated this result transmit lakhwinder reference range : 98 - 107 mEq/L. Th e reference range was not used to interpret this result as normal/abnormal . CO2 (test code = 25 See_Comment Testing Per formed 2028-02) at [facility], [address] [place] [address], [address], [place], [place] [address] [Automated mess age] The system AutoShag generated this result transmit lakhwinder reference range : 22 - 29 mEq/L. The reference range was not used to interpret this result as normal/abnormal . Anion Gap (test 11 See_Comment Testing Perf ormed code = 80179-0) at [facility], [facility], [address], [place], [place] [address] [Automated mess age] The system AutoShag generated this result transmit lakhwinder reference range : 4 - 14 mEq/L. The reference range was not used to interpret this result as normal/abnormal . PAIGE (test code = Schedule same day PAIGE) tests/clinic appt [facility] [place] [id number] 14:14:06 Test Item Value Reference Range Interpretation Comments Sodium Lvl (test 141 See_Comment Testing Per formed code = 2951-2) at [facility], [facility], [address], [place], [place] [address] [Automated mess age] The system Zonoffic h generated this result transmit lakhwinder reference range : 136 - 145 mEq/L . The reference r jose was not used to interpret this result as normal/abnormal . Potassium Lvl 3.9 See_Comment Testing Perfor med (test code = at [facility] 2823-3) [facility], [facility] [address], [address], [place], [place] [address] [Automated mess age] The system [employer]on[employer] Tomorrow generated this result transmit lakhwinder reference range : 3.5 - 5.1 mEq/L . The reference r jose was not used to interpret this result as normal/abnormal . Chloride (test 105 See_Comment Testing Perfo rmed code = 2075-0) at [facility], [address] [facility], [address], [place], [place] [address] [Automated mess age] The system Zonoffic h generated this result transmit lakhwinder reference range : 98 - 107 mEq/L. Th e reference range was not used to interpret this result as normal/abnormal . CO2 (test code = 25 See_Comment Testing Per formed 2028-02) at [facility], [address] [place] [address], [address], [place], [place] [address] [Automated mess age] The system Cleverbug h generated this result transmit lakhwinder reference range : 22 - 29 mEq/L. The reference range was not used to interpret this result as normal/abnormal . Anion Gap (test 11 See_Comment Testing Perf ormed code = 31570-1) at [facility], [address] [facility], [address], [place], [place] [address] [Automated mess age] The system AutoShag generated this result transmit lakhwinder reference range : 4 - 14 mEq/L. The reference range was not used to interpret this result as normal/abnormal . PAIGE (test code = Schedule same day PAIGE) tests/clinic [facility] [id number] 14:14:05 Test Item Value Reference Range Interpretation Comments Albumin Lvl (test 4.0 See_Comment Testing Pe rformed at code = 1751-7) [facility] Ambul atory Care [facility], [address] [facility], [address], [place] [address] [Automate d message] The sy stem which generated this result transmit lakhwinder reference range : 3.5 - 5.2 gm/dL. Th e reference range was not used to interpret this result as normal/abnormal . PAIGE (test code = Schedule same day PAIGE) tests[facility] [id number] 14:14:05 Test Item Value Reference Range Interpretation Comments Albumin Lvl (test 4.0 See_Comment Testing Pe rformed at code = 1751-7) [facility] at[facility] Care Bld[facility], [address], [address], [place] [address] [Automate d message] The sy stem which generated this result transmit lakhwinder reference range : 3.5 - 5.2 gm/dL. Th e reference range was not used to interpret this result as normal/abnormal . PAIGE (test code = Schedule same day PAIGE) tests[facility]inic [facility] [id number] 14:14:05 Test Item Value Reference Range Interpretation Comments Albumin Lvl (test 4.0 See_Comment Testing Pe rformed at code = 1751-7) [facility], [address], [address], [place] [address] [Automate d message] The sy stem which generated this result transmit lakhwinder reference range : 3.5 - 5.2 gm/dL. Th e reference range was not used to interpret this result as normal/abnormal . PAIGE (test code = Schedule same day PAIGE) tests[facility] Aminotransferase 2022-09-13 14:14:04 Test Item Value Reference Range Interpretation Comments AST (test code 12 U/L <=40 Testing Perfo rmed at = 1920-8) [facility] B[facility], [address], [address], [place] [address] PAIGE (test code Schedule same day = PAIGE) tests[facility]inic [facility] Amin[facility] 2022-09-13 14:14:04 Test Item Value Reference Range Interpretation Comments AST (test code 12 U/L <=40 Testing Perfo rmed at = 1920-8) [facility], [address], [address], [place] [address] PAIGE (test code Schedule same day = PAIGE) tests[facility]clinic [facility] 2022-09-13 14:14:04 Test Item Value Reference Range Interpretation Comments AST (test code 12 U/L <=40 Testing Perfo rmed at = 1920-8) [facility], [address], [address], [place] [address] PAIGE (test code Schedule same day = PAIGE) tests/clinic [place] [id number] 14:14:03 Test Item Value Reference Range Interpretation Comments ALT (test code 7 U/L <=41 Testing Perfo rmed at = 1742-6) [facility] Ambulat ory Care [facility], [address], [address], [place] [address] PAIGE (test code Schedule same day = PAIGE) tests/clinic [place] [id number] 14:14:03 Test Item Value Reference Range Interpretation Comments ALT (test code 7 U/L <=41 Testing Perfo rmed at = 1742-6) [facility] Ambulat ory Care [facility], [address], [address], [place] [address] PAIGE (test code Schedule same day = PAIGE) tests/clinic [place] [id number] 14:14:03 Test Item Value Reference Range Interpretation Comments ALT (test code 7 U/L <=41 Testing Perfo rmed at = 1742-6) [facility] Ambulat ory Care [facility], [address], [address], [place] [address] PAIGE (test code Schedule same day = PAIGE) tests/clinic [facility].Serum [id number] 14:14:01 Test Item Value Reference Range Interpretation Comments Creatinine (test code 0.62 mg/dL 0.67-1.17 L Testin g Performed = 2160-0) at [facility] [employer] [facility], [address], [address], [place], [place] [address] PAIGE (test code = PAIGE) Schedule same day tests/clinic [facility] Lab Interpretation Abnormal (test code = 67167-6) [facility].Serum [id number] 14:14:01 Test Item Value Reference Range Interpretation Comments Creatinine (test code 0.62 mg/dL 0.67-1.17 L Testin g Performed = 2160-0) at [facility] [employer] [facility], [address], [address], [place], [place] [address] PAIGE (test code = PAIGE) Schedule same day tests/clinic appt Lab Interpretation Abnormal (test code = 98896-4) [facility].Serum Hhptlozdsg7689-15-63 14:14:01 Test Item Value Reference Range Interpretation Comments Creatinine (test code 0.62 mg/dL 0.67-1.17 L Testin g Performed = 2160-0) at [facility] [address], [address], [address], [place], [place] [address] PAIGE (test code = PAIGE) Schedule same day tests/clinic appt Lab Interpretation Abnormal (test code = 33955-4) [facility] 14:14:00 Test Item Value Reference Range Interpretation Comments BUN (test code 10 mg/dL 6-23 Testing Perfo rmed at = 3094-0) [facility] Ambulat ory Care Bl, [address], [address], [place] [address] PAIGE (test code Schedule same day = PAIGE) tests/clinic appt [facility] 14:14:00 Test Item Value Reference Range Interpretation Comments BUN (test code 10 mg/dL 6-23 Testing Perfo rmed at = 3094-0) [facility] Ambulat ory Care Bl, [address], [place] [address] PAIGE (test code Schedule same day = PAIGE) tests/clinic appt [facility] 14:14:00 Test Item Value Reference Range Interpretation Comments BUN (test code 10 mg/dL 6-23 Testing Perfo rmed at = 3094-0) [facility] Ambulat ory Care Bldg, [address], [place] [address] PAIGE (test code Schedule same day = PAIGE) tests/clinic appt [facility] Center[facility] [id number] 14:13:59 Test Item Value Reference Range Interpretation Comments Glucose Level (test 102 mg/dL 70-99 H Effectiv e 01/24/16, code = 2345-7) the glucose reference intervals have been updated ba sed on [place] [employer] Diabetes [employer] guidelines (Standards of Medical Care in Diabetes 2016. Diabetes Care 2016; 39: S13-S22).Fastin g blood glucose:Normal: 70-99 mg/dLImpaired fasting glucose (increased risk for diabetes or pre-diabetes): 100-125 mg/dLDiabetes mellitus: >/=12 6 mg/dL Random bl ood glucose:Normal: 70-199 mg/dLNot e: Random glucose >100 mg/dL is associated with increased risk for diabetes Testin g Performed at [facility], [facility], [address], [place] [address] PAIGE (test code = PAIGE) Schedule same day tests/clinic appt Lab Interpretation Abnormal (test code = 75935-5) [facility] [id number] 14:13:59 Test Item Value Reference Range Interpretation Comments Glucose Level (test 102 mg/dL 70-99 H Effectiv e 01/24/16, code = 2345-7) the glucose reference intervals have been updated ba sed on [place] [employer] guidelines (Standards of Medical Care in Diabetes 2016. Diabetes Care 2016; 39: S13-S22).Fastin g blood glucose:Normal: 70-99 mg/dLImpaired fasting glucose (increased risk for diabetes or pre-diabetes): 100-125 mg/dLDiabetes mellitus: >/=12 6 mg/dL Random bl ood glucose:Normal: 70-199 mg/dLNot e: Random glucose >100 mg/dL is associated with increased risk for diabetes Testin g Performed at [facility], [facility], [address], [place] [address] PAIGE (test code = PAIGE) Schedule same day tests/clinic appt Lab Interpretation Abnormal (test code = 46701-5) [facility] [id number] 14:13:59 Test Item Value Reference Range Interpretation Comments Glucose Level (test 102 mg/dL 70-99 H Effectiv e 01/24/16, code = 2345-7) the glucose reference intervals have been updated ba sed on [place] [employer] guidelines (Standards of Medical Care in Diabetes 2016. Diabetes Care 2016; 39: S13-S22).Fastin g blood glucose:Normal: 70-99 mg/dLImpaired fasting glucose (increased risk for diabetes or pre-diabetes): 100-125 mg/dLDiabetes mellitus: >/=12 6 mg/dL Random bl ood glucose:Normal: 70-199 mg/dLNot e: Random glucose >100 mg/dL is associated with increased risk for diabetes Testin g Performed at [facility], [address], [place] [address] PAIGE (test code = PAIGE) Schedule same day tests/clinic appt Lab Interpretation Abnormal (test code = 10575-0) [facility] Ooomjebmnu0273-53-52 13:41:08 Test Item Value Reference Range Interpretation Comments POC Crea (test 0.6 mg/dL 0.6-1.3 Medications, code = 85720-6) especially h ydroxyurea or supplements, such as ascorbate, c an interfere with test results causing a falsely and significantly h igher result than exp ected. If a problem is suspected with a patient's resul t, a [facility]. Method descript ion: [...] ration by an electroch emical assay. POC EGFR (test 106 See_Comment The eGFRcr is code = 98504) calculated wit h the 2020 CKD-EPI creatinine equa tion using creatinin e, patient's age, and sex for adults 18 y ears of age and older. Other factors, especi ally muscle mass, ma y affect accuracy and need to be considered.Acco rding to the Kidney D isease: Improving Globa l Outcomes (KDIGO ) CKD Work Group 2012 Clinical Practi ce Guideline, oil dispatcher henrry kidney disease (CKD) is defined as t he abnormalities o f kidney structur e or function, prese nt for more than 3 mon ths, with implicatio ns for health. CKD baylee uld be classified by law escudero, GFR category, a nd albuminuria cat egory. KDIGO guideline s provide the fol lowing GFR categoriesS tage Description GFR mL/min/1.73 m2G 1* Normal or high >= 90G2* Mildly de creased 60-89G3a Mildly to moderately decr eased 45-59G3b Modera tely to severely decrea sed 30-44G4 Severel y decreased 15-29 G5 Kidney failure <15*In the absence of evidence of kid alicia damage, neither G1 nor G2 fulfill crit eria for CKD. [Autom ated message] The sy stem which generated this result transmit lakhwinder reference range : >=60 mL/min/1.73 sq. m. The reference range was not used to int erpret this result as normal/abnormal . POC Clean Dev Yes (test code = 6672) Performing Lab [facility] (test code = [facility] [place] [address]) Clinical Lab, [address] [place] [address], [place], [place] [address]; Mass Spectrometry Specialist: Aletha Arciniega MD; Waived Point of Care Testing - Rosina real MD [facility] Rnwqytjpth5098-21-42 13:41:08 Test Item Value Reference Range Interpretation Comments POC Crea (test 0.6 mg/dL 0.6-1.3 Medications, code = 80179-3) especially h ydroxyurea or supplements, such as [...] ration by an electroch emical assay. POC EGFR (test 106 See_Comment The eGFRcr is code = 87821) calculated wit h the 2020 CKD-EPI creatinine equa tion using creatinin e, patient's age, and sex for adults 18 y ears of age and older. Other factors, especi ally muscle mass, ma y affect accuracy and need to be considered.Acco rding to the Kidney D isease: Improving Globa l Outcomes (KDIGO ) CKD Work Group 2012 Clinical Practi ce Guideline, oil dispatcher henrry kidney disease (CKD) is defined as t he abnormalities o f kidney structur e or function, prese nt for more than 3 mon ths, with implicatio ns for health. CKD baylee uld be classified by c brooke, GFR category, a nd albuminuria cat egory. KDIGO guideline s provide the fol lowing GFR categoriesS tage Description GFR mL/min/1.73 m2G 1* Normal or high >= 90G2* Mildly de creased 60-89G3a Mildly to moderately decr eased 45-59G3b Modera tely to severely decrea sed 30-44G4 Severel y decreased 15-29 G5 Kidney failure <15*In the absence of evidence of kid alicia damage, neither G1 nor G2 fulfill crit eria for CKD. [Autom ated message] The sy stem which generated this result transmit lakhwinder reference range : >=60 mL/min/1.73 sq. m. The reference range was not used to int erpret this result as normal/abnormal . POC Clean Dev Yes (test code = 6672) Performing Lab [facility] (test code = [facility] [place] [address]) Clinical Lab, [address] [place] [address], [place], [place] [address]; Mass Spectrometry Specialist: Aletha Arciniega MD; Waived Point of Care Testing - Rosina real MD [facility] MD [place] [facility] [id number] 13:41:08 Test Item Value Reference Range Interpretation Comments POC Crea (test 0.6 mg/dL 0.6-1.3 Medications, code = 83706-1) especially h ydroxyurea or supplements, such as [...] ration by an electroch emical assay. POC EGFR (test 106 See_Comment The eGFRcr is code = 79088) calculated wit h the 2020 CKD-EPI creatinine equa tion using creatinin e, patient's age, and sex for adults 18 y ears of age and older. Other factors, especi ally muscle mass, ma y affect accuracy and need to be considered.Acco rding to the Kidney D isease: Improving Globa l Outcomes (KDIGO ) CKD Work Group 2012 Clinical Practi ce Guideline, oil dispatcher henrry kidney disease (CKD) is defined as t he abnormalities o f kidney structur e or function, prese nt for more than 3 mon ths, with implicatio ns for health. CKD baylee uld be classified by c ause, GFR category, a nd albuminuria cat egory. KDIGO guideline s provide the fol lowing GFR categoriesS tage Description GFR mL/min/1.73 m2G 1* Normal or high >= 90G2* Mildly de creased 60-89G3a Mildly to moderately decr eased 45-59G3b Modera tely to severely decrea sed 30-44G4 Severel y decreased 15-29 G5 Kidney failure <15*In the absence of evidence of kid alicia damage, neither G1 nor G2 fulfill crit eria for CKD. [Autom ated message] The sy stem which generated this result transmit lakhwinder reference range : >=60 mL/min/1.73 sq. m. The reference range was not used to int erpret this result as normal/abnormal . POC Clean Dev Yes (test code = 6672) Performing Lab [facility] (test code = [facility] [place] [address]) Clinical Lab, [address] [facility], [place], [place] [address]; Mass Spectrometry Specialist: Aletha Arciniega MD; Waived Point of Care Testing - Rosina real MD [facility] 13:32:19 Test Item Value Reference Range Interpretation Comments Neutrophil % (test 48.8 % 42.0-66.0 As part o f code = 770-8) Differential performed at [facility], [address] [facility] [address], [address], [place], [place] [address] Lymphocyte % (test 34.8 % 24.0-44.0 code = 736-9) Monocyte % (test code 9.1 % 2.0-7.0 H = 5905-5) Eosinophil % (test 6.6 % 1.0-4.0 H code = 713-8) Basophil % (test code 0.7 % 0.0-1.0 = 706-2) IGRE % (test code = 0.0 % 0.0-0.4 IGRE % c ount 72523-9) includes Metamyelocytes, Myelocytes, and Promyelocytes. As part of Differential performed at [facility], [facility], [address], [place], [place] [address] Neutrophil Abs (test 3.37 K/uL 1.70-7.30 code = 751-8) Lymphocyte Abs (test 2.41 K/uL 1.00-4.80 code = 731-0) Monocyte Abs (test 0.63 K/uL 0.08-0.70 code = 742-7) Eosinophil Abs (test 0.46 K/uL 0.04-0.40 H code = 711-2) Basophil Abs (test 0.05 K/uL 0.00-0.10 code = 704-7) IG Abs (test code = 0.00 K/uL 0.00-0.04 86748-8) PAIGE (test code = PAIGE) Schedule same day tests/clinic appt Lab Interpretation Abnormal (test code = 49856-4) [facility] 13:32:19 Test Item Value Reference Range Interpretation Comments Neutrophil % (test 48.8 % 42.0-66.0 As part o f code = 770-8) Differential performed at [facility], [address] [place] [address], [address], [place] [address] Lymphocyte % (test 34.8 % 24.0-44.0 code = 736-9) Monocyte % (test code 9.1 % 2.0-7.0 H = 5905-5) Eosinophil % (test 6.6 % 1.0-4.0 H code = 713-8) Basophil % (test code 0.7 % 0.0-1.0 = 706-2) IGRE % (test code = 0.0 % 0.0-0.4 IGRE % c ount 22652-9) includes Metamyelocytes, Myelocytes, and Promyelocytes. As part of Differential performed at [facility] Care [facility], [address] [facility], [address], [place], [place] [address] Neutrophil Abs (test 3.37 K/uL 1.70-7.30 code = 751-8) Lymphocyte Abs (test 2.41 K/uL 1.00-4.80 code = 731-0) Monocyte Abs (test 0.63 K/uL 0.08-0.70 code = 742-7) Eosinophil Abs (test 0.46 K/uL 0.04-0.40 H code = 711-2) Basophil Abs (test 0.05 K/uL 0.00-0.10 code = 704-7) IG Abs (test code = 0.00 K/uL 0.00-0.04 62464-1) PAIGE (test code = PAIGE) Schedule same day tests/clinic appt Lab Interpretation Abnormal (test code = 67564-0) [facility] XquddhWtfoebjuihsz9129-40-78 13:32:19 Test Item Value Reference Range Interpretation Comments Neutrophil % (test 48.8 % 42.0-66.0 As part o f code = 770-8) Differential performed at [facility] Care [facility], [address] [facility], [address], [place], [place] [address] Lymphocyte % (test 34.8 % 24.0-44.0 code = 736-9) Monocyte % (test code 9.1 % 2.0-7.0 H = 5905-5) Eosinophil % (test 6.6 % 1.0-4.0 H code = 713-8) Basophil % (test code 0.7 % 0.0-1.0 = 706-2) IGRE % (test code = 0.0 % 0.0-0.4 IGRE % c ount 26015-7) includes Metamyelocytes, Myelocytes, and Promyelocytes. As part of Differential performed at [facility] [employer] [facility], [address] [facility], [address], [place], [place] [address] Neutrophil Abs (test 3.37 K/uL 1.70-7.30 code = 751-8) Lymphocyte Abs (test 2.41 K/uL 1.00-4.80 code = 731-0) Monocyte Abs (test 0.63 K/uL 0.08-0.70 code = 742-7) Eosinophil Abs (test 0.46 K/uL 0.04-0.40 H code = 711-2) Basophil Abs (test 0.05 K/uL 0.00-0.10 code = 704-7) IG Abs (test code = 0.00 K/uL 0.00-0.04 59066-9) PAIGE (test code = PAIGE) Schedule same day tests/clinic appt Lab Interpretation Abnormal (test code = 92966-4) [facility] [place].SKJ8372-01-01 13:32:09 Test Item Value Reference Range Interpretation Comments WBC (test code = 6.9 K/uL 4.0-11.0 6690-2) RBC (test code = 4.71 See_Comment [Automated 789-8) message] The sy stem which generated this result transmitted reference range : 4.50 - 6.00 M/u L. The reference r jose was not used to interpret this result as normal/abnormal . Hgb (test code = 14.5 See_Comment As part of CBC or 718-7) as an individua l orderable testi ng performed at [facility] Lab [employer], [address] [facility], [address], [place], [place] [address] [Automated mess age] The system Zonoffic h generated this result transmit lakhwinder reference range : 14.0 - 18.0 gm/ dL. The reference r jose was not used to interpret this result as normal/abnormal . Hct (test code = 45.2 % 40.0-54.0 As part of CBC or 4544-3) as an individua l orderable testi ng performed at [facility] [employer], [address] [facility], [address], [place], [place] [address] MCV (test code = 96 fL 82-98 787-2) MCH (test code = 30.8 pg 27.0-31.0 785-6) MCHC (test code = 32.1 See_Comment [Automate d 786-4) message] The sy stem which generated this result transmitted reference range : 31.0 - 36.0 gm/ dL. The reference r jose was not used to interpret this result as normal/abnormal . RDW-SD (test code = 62.4 fL 35.1-46.3 H 52029-6) RDW-CV (test code = 17.9 % 12.0-15.5 H 788-0) Platelet count (test 310 K/uL 140-440 As part of CBC or code = 777-3) as an individu al orderable testi ng performed at [facility] Lab [employer], [address] [facility], [address], [place], [place] [address] MPV (test code = 9.6 fL 4.0-10.4 52726-3) INRBC (test code = 0.0 % <=0.0 The INRBC 71222-4) (instrument NRB C) value reflects the enumerationof nucleated red b lood cells contained in a 200uL sampleo f whole blood analyzed by the instrument. Thi s value maydiffer from the NRBC v alue reported in a manual differential,wh ich is based on a 1 00 cell differenti al. As part of CBC testing perform ed at [facility] Lab [facility] Helper [address] [facility] [facility], [address], [place], [place] [address] PAIGE (test code = PAIGE) Schedule same day tests/clinic appt Lab Interpretation Abnormal (test code = 15280-7) [facility] MD [facility] [place].[id number] 13:32:09 Test Item Value Reference Range Interpretation Comments WBC (test code = 6.9 K/uL 4.0-11.0 6690-2) RBC (test code = 4.71 See_Comment [Automated 789-8) message] The sy stem which generated this result transmitted reference range : 4.50 - 6.00 M/u L. The reference r jose was not used to interpret this result as normal/abnormal . Hgb (test code = 14.5 See_Comment As part of CBC or 718-7) as an individua l orderable testi ng performed at [facility], [address] [facility], [address], [place], [place] [address] [Automated mess age] The system whic h generated this result transmit lakhwinder reference range : 14.0 - 18.0 gm/ dL. The reference r jose was not used to interpret this result as normal/abnormal . Hct (test code = 45.2 % 40.0-54.0 As part of CBC or 4544-3) as an individua l orderable testi ng performed at [facility], [address], [address], [place], [place] [address] MCV (test code = 96 fL 82-98 787-2) MCH (test code = 30.8 pg 27.0-31.0 785-6) MCHC (test code = 32.1 See_Comment [Automate d 786-4) message] The sy stem which generated this result transmitted reference range : 31.0 - 36.0 gm/ dL. The reference r jose was not used to interpret this result as normal/abnormal . RDW-SD (test code = 62.4 fL 35.1-46.3 H 68591-1) RDW-CV (test code = 17.9 % 12.0-15.5 H 788-0) Platelet count (test 310 K/uL 140-440 As part of CBC or code = 777-3) as an individu al orderable testi ng performed at [facility], [address], [address], [place], [place] [address] MPV (test code = 9.6 fL 4.0-10.4 13869-1) INRBC (test code = 0.0 % <=0.0 The INRBC 13639-0) (instrument NRB C) value reflects the enumerationof nucleated red b lood cells contained in a 200uL sampleo f whole blood analyzed by the instrument. Thi s value maydiffer from the NRBC v alue reported in a manual differential,wh ich is based on a 1 00 cell differenti al. As part of CBC testing perform ed at [facility] Undertaker Helper [address] [place] [address], [address], [place], [place] [address] PAIGE (test code = PAIGE) Schedule same day tests/clinic appt Lab Interpretation Abnormal (test code = 49414-3) [facility] [place].[id number] 13:32:09 Test Item Value Reference Range Interpretation Comments WBC (test code = 6.9 K/uL 4.0-11.0 6690-2) RBC (test code = 4.71 See_Comment [Automated 789-8) message] The sy stem which generated this result transmitted reference range : 4.50 - 6.00 M/u L. The reference r jose was not used to interpret this result as normal/abnormal . Hgb (test code = 14.5 See_Comment As part of CBC or 718-7) as an individua l orderable testi ng performed at [facility], [address] [facility], [address], [place], [place] [address] [Automated mess age] The system ic h generated this result transmit lakhwinder reference range : 14.0 - 18.0 gm/ dL. The reference r jose was not used to interpret this result as normal/abnormal . Hct (test code = 45.2 % 40.0-54.0 As part of CBC or 4544-3) as an individua l orderable testi ng performed at [facility], [facility] [facility], [address], [place], [place] [address] MCV (test code = 96 fL 82-98 787-2) MCH (test code = 30.8 pg 27.0-31.0 785-6) MCHC (test code = 32.1 See_Comment [Automate d 786-4) message] The sy stem which generated this result transmitted reference range : 31.0 - 36.0 gm/ dL. The reference r jose was not used to interpret this result as normal/abnormal . RDW-SD (test code = 62.4 fL 35.1-46.3 H 60020-1) RDW-CV (test code = 17.9 % 12.0-15.5 H 788-0) Platelet count (test 310 K/uL 140-440 As part of CBC or code = 777-3) as an individu al orderable testi ng performed at [facility] Lab Undertaker Helper dg, [address], [address], [place], [place] [address] MPV (test code = 9.6 fL 4.0-10.4 33267-4) INRBC (test code = 0.0 % <=0.0 The INRBC 68329-0) (instrument NRB C) value reflects the enumerationof nucleated red b lood cells contained in a 200uL sampleo f whole blood analyzed by the instrument. Thi s value maydiffer from the NRBC v alue reported in a manual differential,wh ich is based on a 1 00 cell differenti al. As part of CBC testing perform ed at [facility] Lab Undertaker Helper [address], [address], [place], [place] [address] PAIGE (test code = PAIGE) Schedule same day tests/clinic appt Lab Interpretation Abnormal (test code = 82222-9) [facility] 17:30:06 Test Item Value Reference Range Interpretation Comments T3 Total (test code = 3053-6) 153 ng/dL 80-200 [facility]T32022[facility] 17:30:06 Test Item Value Reference Range Interpretation Comments T3 Total (test code = 3053-6) 153 ng/dL 80-200 [facility]T320[facility] 17:30:06 Test Item Value Reference Range Interpretation Comments T3 Total (test code = 3053-6) 153 ng/dL 80-200 [facility]T320[facility] 17:30:06 Test Item Value Reference Range Interpretation Comments T3 Total (test code = 3053-6) 153 ng/dL 80-200 [facility]T32022-12-[facility] 17:30:06 Test Item Value Reference Range Interpretation Comments T3 Total (test code = 3053-6) 153 ng/dL 80-200 [facility] CenterFree [id number] 16:45:54 Test Item Value Reference Range Interpretation Comments T4 Free (test code 1.01 ng/dL 0.93-1.70 Testing P erformed at B = 3024-7) Lab [facility] Hel[facility], [address], [address], [address] [id number] 16:45:54 Test Item Value Reference Range Interpretation Comments T4 Free (test code 1.01 ng/dL 0.93-1.70 Testing P erformed at B = 3024) Lab [facility], [address], [address] [id number] 16:45:54 Test Item Value Reference Range Interpretation Comments T4 Free (test code 1.01 ng/dL 0.93-1.70 Testing P erformed at B = 3024-) Lab [facility] Bld[facility], [address] [facility], [address], [address] [id number] 16:45:54 Test Item Value Reference Range Interpretation Comments T4 Free (test code 1.01 ng/dL 0.93-1.70 Testing P erformed at B = 3024) Lab [facility], [address], [address], [address] [id number] 16:45:54 Test Item Value Reference Range Interpretation Comments T4 Free (test code 1.01 ng/dL 0.93-1.70 Testing P erformed at B = [facility]) Lab [facility]taker Helper [facility], [address] [facility], [address], [address]TSH2022-12-09 16:45:52 Test Item Value Reference Range Interpretation Comments TSH (test code = 0.65 See_Comment Note: New M ethodology and 75933-8) Reference Range change effective 2017 at 1400 Testing Perform ed at [facility] Lab Undertaker Helper [facility], [address], [address], [place] [address] [Automated mess age] The system which ge nerated this result transmit lakhwinder reference range : 0.27 - 4.20 mcunit/mL. The reference range was not used to interpr et this result as paras l/abnormal. [facility]SH[facility] 16:45:52 Test Item Value Reference Range Interpretation Comments TSH (test code = 0.65 See_Comment Note: Gerson Ybarra ethodology and 80182-8) Reference Range change effective 2017 at 1400 Testing Perform ed at [facility] Lab Undertaker Helper [facility], [address], [place] [address] [Automated mess age] The system which ge nerated this result transmit lakhwinder reference range : 0.27 - 4.20 mcunit/mL. The reference range was not used to interpr et this result as paras l/abnormal. [facility]TSH[facility] 16:45:52 Test Item Value Reference Range Interpretation Comments TSH (test code = 0.65 See_Comment Note: Gerson hernandezodology and 42655-6) Reference Range change effective 2017 at 1400 Testing Perform ed at [facility] Lab Undertaker Helper [facility], [address], [place] [address] [Automated mess age] The system which ge nerated this result transmit lakhwinder reference range : 0.27 - 4.20 mcunit/mL. The reference range was not used to interpr et this result as paras l/abnormal. [facility] 16:45:52 Test Item Value Reference Range Interpretation Comments TSH (test code = 0.65 See_Comment Note: Gerson Ybarra ethodology and 60907-4) Reference Range change effective 2017 at 1400 Testing Perform ed at [facility] Lab Undertaker Helper [facility], [address], [address], [place] [address] [Automated mess age] The system which ge nerated this result transmit lakhwinder reference range : 0.27 - 4.20 mcunit/mL. The reference range was not used to interpr et this result as paras l/abnormal. [facility] 16:45:52 Test Item Value Reference Range Interpretation Comments TSH (test code = 0.65 See_Comment Note: New M ethodology and 65468-3) Reference Range change effective 2017 at 1400 Testing Perform ed at [facility] Lab [facility], [address], [address], [place] [address] [Automated mess age] The system which ge nerated this result transmit lakhwinder reference range : 0.27 - 4.20 mcunit/mL. The reference range was not used to interpr et this result as paras l/abnormal. [facility] CenterFractionated [id number] 16:32:38 Test Item Value Reference Range Interpretation Comments Bili Total (test 0.4 mg/dL See_Comment Indocyanine Green (ICG) code = 1974-) may cause fal sely elevated biliru bin results. Total and direct bilirubin must not be measured from s amples containing indo cyanine green. False el evation of total bilirubin can be seen in patient s with IgG concentrations above 28 g/L.Testing Per formed at [facility] Lab [facility], [address], [address], [place] [address] [Automate d message] The system Zonoffic h generated this result transmitted ref erence range: <=1.2. T he reference range was not used to interpr et this result as normal/abnormal . Bili Direct (test See_Comment Indocyanin e Green (ICG) code = 1967-) may cause fal sely elevated biliru bin results. Total and direct bilirubin must not be measured from s amples containing indo cyanine green. Testing Performed at [facility] Lab [facility], [address], [address], [place] [address] [Autom ated message] The sy stem which generated this result transmitted ref erence range: <=0.3. T he reference range was not used to interpr et this result as normal/abnormal . Bili Indirect (test See Note 0.0-0.9 Unable t o calculate code = 1970-) Indirect Bili ruffin result due to some par ameters are outside rep ortable rangeTesting Pe rformed at [facility] Lab [facility], [address], [address], [place] [address] [facility] CenterFractionated [id number] 16:32:38 Test Item Value Reference Range Interpretation Comments Bili Total (test 0.4 mg/dL <=1.2 Indocyanine Green (ICG) code = 1974-) may cause fal sely elevated biliru bin results. Total and direct bilirubin must not be measured from s amples containing indo cyanine green. False el evation of total bilirubin can be seen in patient s with IgG concentrations above 28 g/L.Testing Per formed at [facility] Lab Ambulat ory Care [facility], [address], [address], [place] [address] Bili Direct (test <=0.3 Indocyanin e Green (ICG) code = 1967-) may cause fal sely elevated biliru bin results. Total and direct bilirubin must not be measured from s amples containing indo cyanine green. Testing Performed at [facility] Lab Ambu latory [facility], [address], [address], [place] [address] Bili Indirect (test See Note 0.0-0.9 Unable t o calculate code = 1970-06) Indirect Bili ruffin result due to some par ameters are outside rep ortable rangeTesting Pe rformed at [facility] [address], [address], [place] [address] [facility] CenterGlomerular Filtration Rate 2022-06-07 16:32:36 Test Item Value Reference Range Interpretation Comments eGFR (test code = 103 See_Comment [place] [address]) the 2020 CKD-EP I creatinine equation using [...] a for CKD. Testing Perform ed at [facility] Lab [facility], [address], [address], [place], [place] [address] [Automated message] The sy stem which generated this result transmitted ref erence range: >=60 mL/min/1.7 3 sq. m. The reference range was not used to interpret th is result as normal/abnormal . [facility] CenterGlomerular Filtration Rate 2022-06-07 16:32:36 Test Item Value Reference Range Interpretation Comments eGFR (test code = 103 See_Comment [place]cr [place] [address]) the 2020 CKD-EP I creatinine equation using [...] a for CKD. Testing Perform ed at [facility] Lab Undertaker Helper [facility], [address] [facility] [address], [address], [place], [place] [address] [Automated message] The sy stem which generated this result transmitted ref erence range: >=60 mL/min/1.7 3 sq. m. The reference range was not used to interpret th is result as normal/abnormal . [facility] CenterUric [id number] 16:32:35 Test Item Value Reference Range Interpretation Comments Uric Acid (test 5.3 mg/dL 3.4-7.0 Testing Perf ormed at [facility] code = 3084-1) Lab [facility], [address], [place] [address] [facility] CenterUric [id number] 16:32:35 Test Item Value Reference Range Interpretation Comments Uric Acid (test 5.3 mg/dL 3.4-7.0 Testing Perf ormed at [facility] code = 3084-1) [facility], [address], [place] [address] [facility] CenterUric [id number] 16:32:35 Test Item Value Reference Range Interpretation Comments Uric Acid (test 5.3 mg/dL 3.4-7.0 Testing Perf ormed at B code = 3084-1) [facility], [address], [place] [address] [facility] [id number] 16:32:35 Test Item Value Reference Range Interpretation Comments Uric Acid (test 5.3 mg/dL 3.4-7.0 Testing Perf ormed at [facility] code = 3084-1) [facility], [address], [address], [place] [address] [facility] CenterU[facility] [id number] 16:32:35 Test Item Value Reference Range Interpretation Comments Uric Acid (test 5.3 mg/dL 3.4-7.0 Testing Perf ormed at [facility] code = 3084-1) [facility], [address], [place] [address] [facility] CenterTotal [id number] 16:32:34 Test Item Value Reference Range Interpretation Comments Total Protein (test 7.0 g/dL 6.4-8.3 Testing Performed at B code = 2885-2) [facility], [address], [address], [place] [address] [facility] CenterTotal [id number] 16:32:34 Test Item Value Reference Range Interpretation Comments Total Protein (test 7.0 g/dL 6.4-8.3 Testing Performed at [facility] code = 2885-2) [facility], [address], [address], [place] [address] [facility] CenterMagnesium [id number] 16:32:33 Test Item Value Reference Range Interpretation Comments Magnesium (test code = 1.9 mg/dL 1.6-2.6 [place] [address]-7) [facility] Lab Ambulat ory Care [facility], [address], [address], [place] [address] [facility] CenterMagnesium [id number] 16:32:33 Test Item Value Reference Range Interpretation Comments Magnesium (test code = 1.9 mg/dL 1.6-2.6 [place] [address]-7) [facility] Lab Ambulat ory Care dg, [address], [address], [place] [address] [facility] CenterMagnesium [id number] 16:32:33 Test Item Value Reference Range Interpretation Comments Magnesium (test code = 1.9 mg/dL 1.6-2.6 [place] [address]-4) [facility] Lab Ambulat ory Care [facility], [address], [address], [place] [address] [facility] CenterMagnesium [id number] 16:32:33 Test Item Value Reference Range Interpretation Comments Magnesium (test code = 1.9 mg/dL 1.6-2.6 [place] [address]-7) [facility] Lab Ambulat ory Care B[facility], [address], [place] [address] [facility] CenterMagnesium [id number] 16:32:33 Test Item Value Reference Range Interpretation Comments Magnesium (test code = 1.9 mg/dL 1.6-2.6 [place] [address]-5) [facility] Lab [facility]ul[facility] or[facility], [address], [place] [address] [facility] CenterCalcium [id number] 16:32:32 Test Item Value Reference Range Interpretation Comments Calcium Lvl (test 9.3 mg/dL 8.4-10.2 Testing Pe rformed at code = 47498-5) [facility] Lab Ambu latory Care [facility], [address], [address], [place], [place] [address] [facility] CenterCalcium [id number] 16:32:32 Test Item Value Reference Range Interpretation Comments Calcium Lvl (test 9.3 mg/dL 8.4-10.2 Testing Pe rformed at code = 07888-9) [facility] Lab Ambu latory Care [facility], [address], [address], [place], [place] [address] [facility] CenterAlkaline [id number] 16:32:31 Test Item Value Reference Range Interpretation Comments Alk Phos (test code = 91 U/L 40-129 Testin g Performed at [facility] [address]) [facility], [address], [place] [address] [facility] CenterAlkaline [id number] 16:32:31 Test Item Value Reference Range Interpretation Comments Alk Phos (test code = 91 U/L 40-129 Testin g Performed at [facility] [address]) [facility], [address], [place] [address] [facility] CenterAlbumin [id number] 16:32:30 Test Item Value Reference Range Interpretation Comments Albumin Lvl (test code 3.8 See_Comment Testi ng Performed at [facility] = 1751-7) Lab [facility] Helper dg, [address], [place] [address] [Automated mess age] The system which ge nerated this result tra nsmitted reference range : 3.5 - 5.2 gm/dL. The refe rence range was not used to interpret this result as normal/abnormal . [facility] CenterAlbumin [id number] 16:32:30 Test Item Value Reference Range Interpretation Comments Albumin Lvl (test code 3.8 See_Comment Testi ng Performed at [facility] = 1751-7) Lab Undertaker Helper [facility], [address], [place] [address] [Automated mess age] The system which ge nerated this result tra nsmitted reference range : 3.5 - 5.2 gm/dL. The refe rence range was not used to interpret this result as normal/abnormal . [facility] CenterAspartate Aminotransferase 2022-06-07 16:32:29 Test Item Value Reference Range Interpretation Comments AST (test code = 14 U/L See_Comment Testing Per formed at [facility] 1920-8) [facility], [address], [place] [address] [Automated mess age] The system which ge nerated this result transmit lakhwinder reference range : <=40. The reference range was not used to interpr et this result as paras l/abnormal. [facility] CenterAspartate Aminotransferase 2022-06-07 16:32:29 Test Item Value Reference Range Interpretation Comments AST (test code = 14 U/L <=40 Testing Per formed at [facility] 1920-8) Lab [facility], [address], [place] [address] [facility] CenterALT2022-12-09 16:32:28 Test Item Value Reference Range Interpretation Comments ALT (test code = 6 U/L See_Comment Testing Per formed at [facility] 1742-6) [facility], [address], [place] [address] [Automated mess age] The system which ge nerated this result transmit lakhwinder reference range : <=41. The reference range was not used to interpr et this result as paras l/abnormal. [facility] CenterALT2022-12-09 16:32:28 Test Item Value Reference Range Interpretation Comments ALT (test code = 6 U/L <=41 Testing Per formed at [facility] 1742-6) [facility], [address], [place] [address] [facility] CenterElectrolyte [id number] 16:32:27 Test Item Value Reference Range Interpretation Comments Sodium Lvl (test code = 138 See_Comment Test ing Performed at [facility] 2951-2) Lab [facility] Hel[facility], [address], [place] [address] [Automated mess age] The system which ge nerated this result tra nsmitted reference range : 136 - 145 mEq/L. The reference range was not u sed to interpret this result as normal/abnormal . Potassium Lvl (test 3.8 See_Comment Testing Performed at [facility] code = 2823-3) Lab Ambulator y [facility], [address], [place] [address] [Automated mess age] The system which ge nerated this result tra nsmitted reference range : 3.5 - 5.1 mEq/L. The reference range was not u sed to interpret this result as normal/abnormal . Chloride (test code = 103 See_Comment Testin g Performed at [facility] 0) Lab Undert[facility] Helper [facility], [address], [place] [address] [Automated mess age] The system which ge nerated this result tra nsmitted reference range : 98 - 107 mEq/L. The refe rence range was not u sed to interpret this result as normal/abnormal . CO2 (test code = 25 See_Comment Testing Per formed at [facility] 2028-02) [facility], [address], [place] [address] [Automated mess age] The system which ge nerated this result tra nsmitted reference range : 22 - 29 mEq/L. The refe rence range was not u sed to interpret this result as normal/abnormal . Anion Gap (test code = 10 See_Comment Testi ng Performed at [facility] 76209-6) [facility], [address], [place] [address] [Automated mess age] The system which ge nerated this result tra nsmitted reference range : 4 - 14 mEq/L. The refe rence range was not u sed to interpret this result as normal/abnormal . [facility] CenterElectrolyte [id number] 16:32:27 Test Item Value Reference Range Interpretation Comments Sodium Lvl (test code = 138 See_Comment Test ing Performed at [facility] 2951-2) Lab [facility] Hel[facility], [address], [place] [address] [Automated mess age] The system which ge nerated this result tra nsmitted reference range : 136 - 145 mEq/L. The reference range was not u sed to interpret this result as normal/abnormal . Potassium Lvl (test 3.8 See_Comment Testing Performed at [facility] code = 2823-3) Lab Ambulator y [facility], [address], [place] [address] [Automated mess age] The system which ge nerated this result tra nsmitted reference range : 3.5 - 5.1 mEq/L. The reference range was not u sed to interpret this result as normal/abnormal . Chloride (test code = 103 See_Comment Testin g Performed at [facility] 5-0) [facility], [address], [address], [place] [address] [Automated mess age] The system which ge nerated this result tra nsmitted reference range : 98 - 107 mEq/L. The refe rence range was not u sed to interpret this result as normal/abnormal . CO2 (test code = 25 See_Comment Testing Per formed at [facility] 2028-02) [facility], [address], [address], [place] [address] [Automated mess age] The system which ge nerated this result tra nsmitted reference range : 22 - 29 mEq/L. The refe rence range was not u sed to interpret this result as normal/abnormal . Anion Gap (test code = 10 See_Comment Testi ng Performed at [facility] 12474-5) [facility], [address], [place] [address] [Automated mess age] The system which ge nerated this result tra nsmitted reference range : 4 - 14 mEq/L. The refe rence range was not u sed to interpret this result as normal/abnormal . [facility] [place].Serum Tmnbvkveyx7448-63-72 16:32:26 Test Item Value Reference Range Interpretation Comments Creatinine (test code = 0.66 mg/dL 0.67-1.17 L Test ing Performed 2160-0) at [facility] Lab [facility], [address], [place], [place] [address] Lab Interpretation (test Abnormal code = 00624-0) [facility].Serum Ndmfebahkx9668-46-22 16:32:26 Test Item Value Reference Range Interpretation Comments Creatinine (test code = 0.66 mg/dL 0.67-1.17 L Test ing Performed 2160-0) at [facility] Lab [facility], [address], [place], [place] [address] Lab Interpretation (test Abnormal code = 38670-8) [facility] 16:32:25 Test Item Value Reference Range Interpretation Comments BUN (test code = 3094-0) 5 mg/dL 6-23 L Betty ting Performed at [facility] Lab [facility], [address], [place] [address] Lab Interpretation (test Abnormal code = 96010-8) [facility] 16:32:25 Test Item Value Reference Range Interpretation Comments BUN (test code = 3094-0) 5 mg/dL 6-23 L Betty ting Performed at [facility] Lab [facility], [address], [place] [address] Lab Interpretation (test Abnormal code = 43270-7) [facility] Kwywg1430-43-69 16:32:24 Test Item Value Reference Range Interpretation Comments Glucose Level (test 96 mg/dL 70-99 Effectiv e 01/24/16, the code = 2345-7) glucose refer ence intervals have been updated based o n [employer] octaviano delines (Standards of [...] risk for diabetes Testin g Performed at [facility] Lab [facility], [address], [place] [address] [facility] [id number] 16:32:24 Test Item Value Reference Range Interpretation Comments Glucose Level (test 96 mg/dL 70-99 Effectiv e 01/24/16, the code = 2345-7) glucose refer ence intervals have been updated based o n [employer] octaviano delines (Standards of [...] risk for diabetes Testin g Performed at [facility] Lab [facility], [address], [place] [address] [facility] 16:09:54 Test Item Value Reference Range Interpretation Comments Neutrophil % (test code 53.5 % 42.0-66.0 As p art of = 770-8) Differential performed at [facility], [address], [facility] [place] [address] Lymphocyte % (test code 38.2 % 24.0-44.0 = 736-9) Monocyte % (test code = 7.0 % 2.0-7.0 5905-5) Eosinophil % (test code 0.7 % 1.0-4.0 L = 713-8) Basophil % (test code = 0.3 % 0.0-1.0 706-2) IGRE % (test code = 0.3 % 0.0-0.4 IGRE % c ount includes 70259-7) Metamyelocytes, Myelocytes, and Promyelocytes. As part of Differe ntial performed at [facility], [address], [place] [address] Neutrophil Abs (test 3.56 K/uL 1.70-7.30 code = 751-8) Lymphocyte Abs (test 2.55 K/uL 1.00-4.80 code = 731-0) Monocyte Abs (test code 0.47 K/uL 0.08-0.70 = 742-7) Eosinophil Abs (test 0.05 K/uL 0.04-0.40 code = 711-2) Basophil Abs (test code 0.02 K/uL 0.00-0.10 = 704-7) IG Abs (test code = 0.02 K/uL 0.00-0.04 19112-1) Lab Interpretation Abnormal (test code = 01665-6) [facility] QdyremUjuemqqqeimi9371-93-16 16:09:54 Test Item Value Reference Range Interpretation Comments Neutrophil % (test code 53.5 % 42.0-66.0 As p art of = 770-8) Differential performed at [facility], [address], [address], [place] [address] Lymphocyte % (test code 38.2 % 24.0-44.0 = 736-9) Monocyte % (test code = 7.0 % 2.0-7.0 5905-5) Eosinophil % (test code 0.7 % 1.0-4.0 L = 713-8) Basophil % (test code = 0.3 % 0.0-1.0 706-2) IGRE % (test code = 0.3 % 0.0-0.4 IGRE % c ount includes 28468-7) Metamyelocytes, Myelocytes, and Promyelocytes. As part of Differe ntial performed at [facility], [address], [address], [place] [address] Neutrophil Abs (test 3.56 K/uL 1.70-7.30 code = 751-8) Lymphocyte Abs (test 2.55 K/uL 1.00-4.80 code = 731-0) Monocyte Abs (test code 0.47 K/uL 0.08-0.70 = 742-7) Eosinophil Abs (test 0.05 K/uL 0.04-0.40 code = 711-2) Basophil Abs (test code 0.02 K/uL 0.00-0.10 = 704-7) IG Abs (test code = 0.02 K/uL 0.00-0.04 62594-2) Lab Interpretation Abnormal (test code = 61685-8) [facility] [place].[id number] 16:09:39 Test Item Value Reference Range Interpretation Comments WBC (test code = 6.7 K/uL 4.0-11.0 6690-2) RBC (test code = 789-8) 3.87 See_Comment L [Au tomated message] The system [employer] generated this result transmitted ref erence range: 4.50 - 6 .00 M/uL. The refer ence range was not u sed to interpret this result as normal/abnor mal. Hgb (test code = 718-7) 11.3 See_Comment L As p art of CBC or as an individual orderable testi ng performed at [facility], [address], [place] [address] [Automate d message] The sy stem which generated this result transmit lakhwinder reference range : 14.0 - 18.0 gm/dL. T he reference range was not used to int erpret this result as normal/abnormal . Hct (test code = 35.1 % 40.0-54.0 L As part of CBC or as 4544-3) an individual orderable testi ng performed at [facility] Lab [facility], [address], [place] [address] MCV (test code = 787-2) 91 fL 82-98 MCH (test code = 785-6) 29.2 pg 27.0-31.0 MCHC (test code = 32.2 See_Comment [Automate d message] 786-4) The system [employer] generated this result transmitted ref erence range: 31.0 - 3 6.0 gm/dL. The refe rence range was not u sed to interpret this result as normal/abnor mal. RDW-SD (test code = 52.4 fL 35.1-46.3 H 22556-3) RDW-CV (test code = 15.8 % 12.0-15.5 H 788-0) Platelet count (test 304 K/uL 140-440 As part of CBC or as code = 777-3) an individual orderable testi ng performed at [facility], [address], [place] [address] MPV (test code = 9.7 fL 4.0-10.4 15756-4) INRBC (test code = 0.0 % See_Comment The INRBC (instrument 86013-6) NRBC) value ref lects the enumeration of nucleated red b lood cells contained in a 200uL sampleof whole blood analyzed by the instrument. Thi s value maydiffer from the NRBC value repo rted in a manual differential,wh ich is based on a 100 cell differential. A s part of CBC testing performed at [facility] [address], [place] [address] [Automated mess age] The system [employer] generated this result transmitted ref erence range: <=0.0. T he reference range was not used to int erpret this result as normal/abnormal . Lab Interpretation Abnormal (test code = 91018-4) [facility] [place].QLF6295-31-16 16:09:39 Test Item Value Reference Range Interpretation Comments WBC (test code = 6.7 K/uL 4.0-11.0 6690-2) RBC (test code = 789-8) 3.87 See_Comment L [Au tomated message] The system [employer] generated this result transmitted ref erence range: 4.50 - 6 .00 M/uL. The refer ence range was not u sed to interpret this result as normal/abnor mal. Hgb (test code = 718-7) 11.3 See_Comment L As p art of CBC or as an individual orderable testi ng performed at [facility], [address], [place] [address] [Automate d message] The sy stem which generated this result transmit lakhwinder reference range : 14.0 - 18.0 gm/dL. T he reference range was not used to int erpret this result as normal/abnormal . Hct (test code = 35.1 % 40.0-54.0 L As part of CBC or as 4544-3) an individual orderable testi ng performed at [facility], [address], [facility] [place] [address] MCV (test code = 787-2) 91 fL 82-98 MCH (test code = 785-6) 29.2 pg 27.0-31.0 MCHC (test code = 32.2 See_Comment [Automate d message] 786-4) The system [employer] generated this result transmitted ref erence range: 31.0 - 3 6.0 gm/dL. The refe rence range was not u sed to interpret this result as normal/abnor mal. RDW-SD (test code = 52.4 fL 35.1-46.3 H 82774-4) RDW-CV (test code = 15.8 % 12.0-15.5 H 788-0) Platelet count (test 304 K/uL 140-440 As part of CBC or as code = 777-3) an individual orderable testi ng performed at [facility], [address], [place] [address] MPV (test code = 9.7 fL 4.0-10.4 77291-5) INRBC (test code = 0.0 % <=0.0 The INRBC (instrument 60833-2) NRBC) value ref lects the enumeration of nucleated red b lood cells contained in a 200uL sampleof whole blood analyzed by the instrument. Thi s value maydiffer from the NRBC value repo rted in a manual differential,wh ich is based on a 100 cell differential. A s part of CBC testing performed at [facility] [address], [place] [address] Lab Interpretation Abnormal (test code = 53320-0) [facility] [place] Blood Qcjdqrc9252-20-51 23:29:29 Test Item Value Reference Range Interpretation Comments Final Report (test No Fungi isolated. code = 8488) Path Review - Culture yield may be Fungus (test code = affected by sample 8479) quality, prior treatment, and transportation conditions.The results have been reviewed and electronically signed by Pathologist:SRUTHI ZABALA MD #[id number] [facility] Blood Lxrvjly7032-94-96 23:29:29 Test Item Value Reference Range Interpretation Comments Final Report (test No Fungi isolated. code = 8488) Path Review - Culture yield may be Fungus (test code = affected by sample 8479) quality, prior treatment, and transportation conditions.The results have been reviewed and electronically signed by Pathologist:SRUTHI ZABALA MD #[id number] [facility] Blood Nkyqncm2483-64-42 23:29:29 Test Item Value Reference Range Interpretation Comments Final Report (test No Fungi isolated. code = 8488) Path Review - Culture yield may be Fungus (test code = affected by sample 8479) quality, prior treatment, and transportation conditions.The results have been reviewed and electronically signed by Pathologist:SRUTHI ZABALA MD #[id number] [facility] Blood Slvhsai8919-23-69 23:29:29 Test Item Value Reference Range Interpretation Comments Final Report (test No Fungi isolated. code = 8488) Path Review - Culture yield may be Fungus (test code = affected by sample 8479) quality, prior treatment, and transportation conditions.The results have been reviewed and electronically signed by Pathologist:SRUTHI ZABALA MD #[id number] [facility] Blood Hgqlmut6314-37-16 23:29:29 Test Item Value Reference Range Interpretation Comments Final Report (test No Fungi isolated. code = 8488) Path Review - Culture yield may be Fungus (test code = affected by sample 8479) quality, prior treatment, and transportation conditions.The results have been reviewed and electronically signed by Pathologist:SRUTHI ZABALA MD #[id number] [facility] Blood Avsjkzv3109-03-01 23:29:29 Test Item Value Reference Range Interpretation Comments Final Report (test No Fungi isolated. code = 8488) Path Review - Culture yield may be Fungus (test code = affected by sample 8479) quality, prior treatment, and transportation conditions.The results have been reviewed and electronically signed by Pathologist:SRUTHI ZABALA MD #[id number] [facility] Biowjek2849-58-91 23:29:29 Test Item Value Reference Range Interpretation Comments Final Report (test No Fungi isolated. code = 8488) Path Review - Culture yield may be Fungus (test code = affected by sample 8479) quality, prior treatment, and transportation conditions.The results have been reviewed and electronically signed by Pathologist:SRUTHI ZABALA MD #[id number] [facility] Anxhiet7250-36-62 01:20:36 Test Item Value Reference Range Interpretation Comments Final Report (test No growth code = 8488) Path Review - Culture yield may be Bottle/Isolator affected by sample (test code = 8499) quality, prior treatment, and transportation conditions....The results have been reviewed and electronically signed by Pathologist:Fredy Mercado MD, PhD #[id number] [facility]2022-04-30 01:20:36 Test Item Value Reference Range Interpretation Comments Final Report (test No growth code = 8488) Path Review - Culture yield may be Bottle/Isolator affected by sample (test code = 8499) quality, prior treatment, and transportation conditions....The results have been reviewed and electronically signed by Pathologist:Fredy Mercado MD, PhD #[id number] [facility]2022-04-30 01:20:36 Test Item Value Reference Range Interpretation Comments Final Report (test No growth code = 8488) Path Review - Culture yield may be Bottle/Isolator affected by sample (test code = 8499) quality, prior treatment, and transportation conditions....The results have been reviewed and electronically signed by Pathologist:Fredy Mercado MD, PhD #[id number] [facility]2022-04-30 01:20:36 Test Item Value Reference Range Interpretation Comments Final Report (test No growth code = 8488) Path Review - Culture yield may be Bottle/Isolator affected by sample (test code = 8499) quality, prior treatment, and transportation conditions....The results have been reviewed and electronically signed by Pathologist:Fredy Mercado MD, PhD #[id number] [facility] Bexkwzy1823-71-21 01:20:36 Test Item Value Reference Range Interpretation Comments Final Report (test No growth code = 8488) Path Review - Culture yield may be Bottle/Isolator affected by sample (test code = 8499) quality, prior treatment, and transportation conditions....The results have been reviewed and electronically signed by Pathologist:Fredy Mercado MD, PhD #[id number] [facility] Dvkopve9716-80-60 01:20:36 Test Item Value Reference Range Interpretation Comments Final Report (test No growth code = 8488) Path Review - Culture yield may be Bottle/Isolator affected by sample (test code = 8499) quality, prior treatment, and transportation conditions....The results have been reviewed and electronically signed by Pathologist:Fredy Mercado MD, PhD #[id number] [facility] Sfkucyu9249-41-91 01:20:36 Test Item Value Reference Range Interpretation Comments Final Report (test No growth code = 8488) Path Review - Culture yield may be Bottle/Isolator affected by sample (test code = 8499) quality, prior treatment, and transportation conditions....The results have been reviewed and electronically signed by Pathologist:Fredy Mercado MD, PhD #[id number] [facility] 17:07:36 Test Item Value Reference Range Interpretation Comments Total Cells (test code 100 = 28248-7) Neutrophil % (test code 63.0 % 42.0-66.0 The Neutrophil count = 75931-5) includes Bands. Lymphocyte % (test code 20.0 % 24.0-44.0 L = 737-7) Monocyte % (test code = 9.0 % 2.0-7.0 H 744-3) Eosinophil % (test code 2.0 % 1.0-4.0 = 714-6) Metamyelocyte % (test 6.0 % See_Comment H The Me tamyelocyte code = 740-1) count includes Myelocytes. [Automated mess age] The system [employer] generated this result transmitted ref erence range: <=0.0. T he reference range was not used to int erpret this result as normal/abnormal . NRBC (test code = 1.0 See_Comment H [Automate d message] 43185-8) The system [employer] generated this result transmitted ref erence range: [...] PLT Morph (test code = Normal Normal 11862-5) Anisocytosis (test code Present Not Present A = 702-1) Poik (test code = Present Not Present A 779-9) Polychromasia (test Present Not Present A code = 23808-8) Ovalocyte (test code = Present Not Present A 774-0) Tear Drop (test code = Present Not Present A 7791-7) Lab Interpretation Abnormal (test code = 18383-3) [facility] PhxvloKksjyvpkxkyf3450-99-15 17:07:36 Test Item Value Reference Range Interpretation Comments Total Cells (test code 100 = 85809-8) Neutrophil % (test code 63.0 % 42.0-66.0 The Neutrophil count = 71337-9) includes Bands. Lymphocyte % (test code 20.0 % 24.0-44.0 L = 737-7) Monocyte % (test code = 9.0 % 2.0-7.0 H 744-3) Eosinophil % (test code 2.0 % 1.0-4.0 = 714-6) Metamyelocyte % (test 6.0 % See_Comment H The Me tamyelocyte code = 740-1) count includes Myelocytes. [Automated mess age] The system [employer] generated this result transmitted ref erence range: <=0.0. T he reference range was not used to int erpret this result as normal/abnormal . NRBC (test code = 1.0 See_Comment H [Automate d message] 83262-7) The system [employer] generated this result transmitted ref erence range: [...] PLT Morph (test code = Normal Normal 97422-5) Anisocytosis (test code Present Not Present A = 702-1) Poik (test code = Present Not Present A 779-9) Polychromasia (test Present Not Present A code = 06050-7) Ovalocyte (test code = Present Not Present A 774-0) Tear Drop (test code = Present Not Present A 7791-7) Lab Interpretation Abnormal (test code = 92169-2) [facility] MftqwsEfdljhegtswf9486-73-83 17:07:36 Test Item Value Reference Range Interpretation Comments Total Cells (test code 100 = 71278-4) Neutrophil % (test code 63.0 % 42.0-66.0 The Neutrophil count = 32183-9) includes Bands. Lymphocyte % (test code 20.0 % 24.0-44.0 L = 737-7) Monocyte % (test code = 9.0 % 2.0-7.0 H 744-3) Eosinophil % (test code 2.0 % 1.0-4.0 = 714-6) Metamyelocyte % (test 6.0 % See_Comment H The Me tamyelocyte code = 740-1) count includes Myelocytes. [Automated mess age] The system [employer] generated this result transmitted ref erence range: <=0.0. T he reference range was not used to int erpret this result as normal/abnormal . NRBC (test code = 1.0 See_Comment H [Automate d message] 50523-5) The system [employer] generated this result transmitted ref erence range: [...] PLT Morph (test code = Normal Normal 12723-5) Anisocytosis (test code Present Not Present A = 702-1) Poik (test code = Present Not Present A 779-9) Polychromasia (test Present Not Present A code = 27725-5) Ovalocyte (test code = Present Not Present A 774-0) Tear Drop (test code = Present Not Present A 7791-7) Lab Interpretation Abnormal (test code = 15977-8) [facility] [place].FZI8053-18-59 17:07:32 Test Item Value Reference Range Interpretation Comments WBC (test code = 11.5 K/uL 4.0-11.0 H 6690-2) RBC (test code = 789-8) 4.25 See_Comment L [Au tomated message] The system [employer] generated this result transmitted ref erence range: 4.50 - 6 .00 M/uL. The refer ence range was not u sed to interpret this result as normal/abnor mal. Hgb (test code = 718-7) 12.1 See_Comment L [Au tomated message] The system [employer] generated this result transmitted ref erence range: [...] See_Comment [Automate d message] 786-4) The system [employer] generated this result transmitted ref erence range: 31.0 - 3 6.0 gm/dL. The refe rence range was not u sed to interpret this result as normal/abnor mal. RDW-SD (test code = 57.5 fL 35.1-46.3 H 77789-4) RDW-CV (test code = 17.4 % 12.0-15.5 H 788-0) Platelet count (test 313 K/uL 140-440 code = 777-3) MPV (test code = 8.8 fL 4.0-10.4 68487-4) INRBC (test code = 0.2 % See_Comment H The INRBC (instrument 05734-9) NRBC) value ref lects the enumeration of nucleated red b lood cells contained in a 200uL sampleof whole blood analyzed by the instrument. Thi s value maydiffer from the NRBC value reported in a m anual differential,wh ich is based on a 100 cell differential. [Automated mess age] The system [employer] generated this result transmitted ref erence range: <=0.0. T he reference range was not used to int erpret this result as normal/abnormal . Lab Interpretation Abnormal (test code = 37256-2) [facility] [place].NZA3504-00-38 17:07:32 Test Item Value Reference Range Interpretation Comments WBC (test code = 11.5 K/uL 4.0-11.0 H 6690-2) RBC (test code = 789-8) 4.25 See_Comment L [Au tomated message] The system [employer] generated this result transmitted ref erence range: 4.50 - 6 .00 M/uL. The refer ence range was not u sed to interpret this result as normal/abnor mal. Hgb (test code = 718-7) 12.1 See_Comment L [Au tomated message] The system [employer] generated this result transmitted ref erence range: [...] See_Comment [Automate d message] 786-4) The system [employer] generated this result transmitted ref erence range: 31.0 - 3 6.0 gm/dL. The refe rence range was not u sed to interpret this result as normal/abnor mal. RDW-SD (test code = 57.5 fL 35.1-46.3 H 99982-9) RDW-CV (test code = 17.4 % 12.0-15.5 H 788-0) Platelet count (test 313 K/uL 140-440 code = 777-3) MPV (test code = 8.8 fL 4.0-10.4 78422-1) INRBC (test code = 0.2 % See_Comment H The INRBC (instrument 08360-8) NRBC) value ref lects the enumeration of nucleated red b lood cells contained in a 200uL sampleof whole blood analyzed by the instrument. Thi s value maydiffer from the NRBC value reported in a m anual differential,wh ich is based on a 100 cell differential. [Automated mess age] The system [employer] generated this result transmitted ref erence range: <=0.0. T he reference range was not used to int erpret this result as normal/abnormal . Lab Interpretation Abnormal (test code = 15303-6) [facility] [place].FCC2491-78-25 17:07:32 Test Item Value Reference Range Interpretation Comments WBC (test code = 11.5 K/uL 4.0-11.0 H 6690-2) RBC (test code = 789-8) 4.25 See_Comment L [Au tomated message] The system [employer] generated this result transmitted ref erence range: 4.50 - 6 .00 M/uL. The refer ence range was not u sed to interpret this result as normal/abnor mal. Hgb (test code = 718-7) 12.1 See_Comment L [Au tomated message] The system [employer] generated this result transmitted ref erence range: [...] See_Comment [Automate d message] 786-4) The system [facility] generated this result transmitted ref erence range: 31.0 - 3 6.0 gm/dL. The refe rence range was not u sed to interpret this result as normal/abnor mal. RDW-SD (test code = 57.5 fL 35.1-46.3 H 37554-6) RDW-CV (test code = 17.4 % 12.0-15.5 H 788-0) Platelet count (test 313 K/uL 140-440 code = 777-3) MPV (test code = 8.8 fL 4.0-10.4 30353-3) INRBC (test code = 0.2 % See_Comment H The INRBC (instrument 18683-0) NRBC) value ref lects the enumeration of nucleated red b lood cells contained in a 200uL sampleof whole blood analyzed by the instrument. Thi s value maydiffer from the NRBC value reported in a m anual differential,wh ich is based on a 100 cell differential. [Automated mess age] The system [facility] Tomorrow generated this result transmitted ref erence range: <=0.0. T he reference range was not used to int erpret this result as normal/abnormal . Lab Interpretation Abnormal (test code = 91100-1) [facility] [place] Pjgwp2241-05-68 11:49:22 Test Item Value Reference Range Interpretation [...] to interpret this result as normal/abnormal . [facility] Xevqd5873-65-47 11:49:22 Test Item Value Reference Range Interpretation [...] to interpret this result as normal/abnormal . [facility] Center[facility]ro[facility] Qjfbe6391-80-92 11:49:22 Test Item Value Reference Range Interpretation [...] to interpret this result as normal/abnormal . [facility] CenterFractionated Amalkuaqc1731-20-82 11:49:21 Test Item Value Reference Range Interpretation [...] h IgG concentrations above 28 g/L. [Automated Smart Surgical age] The system which ge nerated this result transmit lakhwinder reference range: <=1.2 mg /dL. The reference range was not used to interpret th is result as normal/abnormal . [facility] CenterFractionated Slsetwcps5732-89-37 11:49:21 Test Item Value Reference Range Interpretation [...] h IgG concentrations above 28 g/L. [Automated Smart Surgical age] The system which ge nerated this result transmit lakhwinder reference range: <=1.2 mg /dL. The reference range was not used to interpret th is result as normal/abnormal . [facility] CenterFractionated Hkzsnjgdh5657-82-87 11:49:21 Test Item Value Reference Range Interpretation [...] h IgG concentrations above 28 g/L. [Automated Smart Surgical age] The system which ge nerated this result transmit lakhwinder reference range: <=1.2 mg /dL. The reference range was not used to interpret th is result as normal/abnormal . [facility] CenterGlomerular Filtration Rate 2021-10-24 11:49:20 Test Item Value Reference Range Interpretation Comments eGFR-AA (test code 107 See_Comment Normal eG FR: >= 60 = 18409-3) mL/min/1.73 m2N ote: The eGFR is calculated [...] See_Comment Normal e GFR: >= 60 = 37928-9) mL/min/1.73 m2N ote: The eGFR is calculated [...] interpret th is result as normal/abnormal . [facility] [place] Filtration Rate 2021-10-24 11:49:20 Test Item Value Reference Range Interpretation Comments eGFR-AA (test code 107 See_Comment Normal eG FR: >= 60 = 10457-4) mL/min/1.73 m2N ote: The eGFR is calculated [...] See_Comment Normal e GFR: >= 60 = 88000-4) mL/min/1.73 m2N ote: The eGFR is calculated [...] interpret th is result as normal/abnormal . [facility] CenterGlomer[facility] Filtration Rate 2021-10-24 11:49:20 Test Item Value Reference Range Interpretation Comments eGFR-AA (test code 107 See_Comment Normal eG FR: >= 60 = 26165-8) mL/min/1.73 m2N ote: The eGFR is calculated [...] Kidney failure <15 [Au tomated message] The [employer] stem which generated this result transmitted ref erence range: >=60 mL/min/1.7 3 sq. m. The reference range was not used to interpret th is result as normal/abnormal . eGFR-JCARLOS (test code 93 See_Comment Normal e GFR: >= 60 = 79718-9) mL/min/1.73 m2N ote: The eGFR is calculated [...] interpret th is result as normal/abnormal . [facility] CenterTotal Fievxrd0295-84-26 11:49:19 Test Item Value Reference Range Interpretation Comments Total Protein (test code = 2885-2) 6.3 g/dL 6.4-8.3 L Lab Interpretation (test code = Abnormal 08743-3) [facility] CenterTotal Byqpigo5616-02-03 11:49:19 Test Item Value Reference Range Interpretation Comments Total Protein (test code = 2885-2) 6.3 g/dL 6.4-8.3 L Lab Interpretation (test code = Abnormal 47577-6) [facility] CenterTotal Iyutenb2709-16-58 11:49:19 Test Item Value Reference Range Interpretation Comments Total Protein (test code = 2885-2) 6.3 g/dL 6.4-8.3 L Lab Interpretation (test code = Abnormal 38587-0) [facility] CenterMagnesium Spwsa5750-79-25 11:49:18 Test Item Value Reference Range Interpretation Comments Magnesium (test code = 95197-5) 2.1 mg/dL 1.6-2.6 [facility] CenterMagnesium Uwlfn6847-70-83 11:49:18 Test Item Value Reference Range Interpretation Comments Magnesium (test code = 37431-5) 2.1 mg/dL 1.6-2.6 [facility] CenterMagnesium Wvesy2714-38-33 11:49:18 Test Item Value Reference Range Interpretation Comments Magnesium (test code = 64800-7) 2.1 mg/dL 1.6-2.6 [facility] CenterAlkaline Cgwqwzvwjnw6625-58-56 11:49:17 Test Item Value Reference Range Interpretation Comments Alk Phos (test code = 6768-6) 59 U/L 40-129 [facility] CenterAlkaline Ynujpdcxaau8180-35-83 11:49:17 Test Item Value Reference Range Interpretation Comments Alk Phos (test code = 6768-6) 59 U/L 40-129 [facility] CenterAlkaline Tylpqlsvkej1692-57-66 11:49:17 Test Item Value Reference Range Interpretation Comments Alk Phos (test code = 6768-6) 59 U/L 40-129 [facility]16 Test Item Value Reference Range Interpretation Comments ALT (test code = 14 U/L See_Comment [Automated message] The 1741-11) system which ge nerated this result transmit lakhwinder reference range : <=41. The reference range was not used to interpr et this result as paras l/abnormal. [facility] 11:49:16 Test Item Value Reference Range Interpretation Comments ALT (test code = 14 U/L See_Comment [Automated message] The 1741-11) system which ge nerated this result transmit lakhwinder reference range : <=41. The reference range was not used to interpr et this result as paras l/abnormal. [facility] 11:49:16 Test Item Value Reference Range Interpretation Comments ALT (test code = 14 U/L See_Comment [Automated message] The 1741-11) system which ge nerated this result transmit lakhwinder reference range : <=41. The reference range was not used to interpr et this result as paras l/abnormal. [facility].Serum Alixnxfvxm3665-38-14 11:49:15 Test Item Value Reference Range Interpretation Comments Creatinine (test code = 2160-0) 0.81 mg/dL 0.67-1.17 [facility].Serum Xjyaacqrir0936-01-97 11:49:15 Test Item Value Reference Range Interpretation Comments Creatinine (test code = 2160-0) 0.81 mg/dL 0.67-1.17 [facility].Serum Zelgafcbxs5849-49-01 11:49:15 Test Item Value Reference Range Interpretation Comments Creatinine (test code = 2160-0) 0.81 mg/dL 0.67-1.17 [facility] CenterBUN2022-04-27 11:49:14 Test Item Value Reference Range Interpretation Comments BUN (test code = 3094-0) 15 mg/dL 6-23 [facility] CenterBUN2022-04-27 11:49:14 Test Item Value Reference Range Interpretation Comments BUN (test code = 3094-0) 15 mg/dL 6- [facility] CenterBUN2022-04-27 11:49:14 Test Item Value Reference Range Interpretation Comments BUN (test code = 3094-0) 15 mg/dL - [facility] CenterPhosphorus Yykng7646-35-84 11:49:13 Test Item Value Reference Range Interpretation Comments Phosphorus (test code = 2777-1) 3.4 mg/dL 2.5-4.5 [facility] CenterPhosphorus Jlexx5310-31-35 11:49:13 Test Item Value Reference Range Interpretation Comments Phosphorus (test code = 2777-1) 3.4 mg/dL 2.5-4.5 [facility] CenterPhosphorus Ptaum6233-91-35 11:49:13 Test Item Value Reference Range Interpretation Comments Phosphorus (test code = 2777-1) 3.4 mg/dL 2.5-4.5 [facility] CenterPhosphorus Knpmz3576-13-21 11:49:13 Test Item Value Reference Range Interpretation Comments Phosphorus (test code = 2777-1) 3.4 mg/dL 2.5-4.5 [facility] CenterPhosphorus Ogivx0567-73-82 11:49:13 Test Item Value Reference Range Interpretation Comments Phosphorus (test code = 2777-1) 3.4 mg/dL 2.5-4.5 [facility] CenterPhosphorus Stcop5016-86-64 11:49:13 Test Item Value Reference Range Interpretation Comments Phosphorus (test code = 2777-1) 3.4 mg/dL 2.5-4.5 [facility] CenterPhosphorus Ruhys7902-25-42 11:49:13 Test Item Value Reference Range Interpretation Comments Phosphorus (test code = 2777-1) 3.4 mg/dL 2.5-4.5 [facility] CenterCalcium Xwwcw9779-33-62 11:49:12 Test Item Value Reference Range Interpretation Comments Calcium Lvl (test code = 88664-0) 9.1 mg/dL 8.4-10.2 [facility] CenterCalcium Rbjbi8794-52-66 11:49:12 Test Item Value Reference Range Interpretation Comments Calcium Lvl (test code = 55780-0) 9.1 mg/dL 8.4-10.2 [facility] CenterCalcium Itasi3999-51-86 11:49:12 Test Item Value Reference Range Interpretation Comments Calcium Lvl (test code = 15209-7) 9.1 mg/dL 8.4-10.2 [facility] CenterAlbumin Krtie8992-54-47 11:49:11 Test Item Value Reference Range Interpretation Comments Albumin Lvl (test code 3.6 See_Comment [Aut omated message] The = 9142) system which ge nerated this result tra nsmitted reference range : 3.5 - 5.2 gm/dL. The refe rence range was not used to interpret this result as normal/abnormal . [facility] CenterAlbumin Upoeo5034-41-81 11:49:11 Test Item Value Reference Range Interpretation Comments Albumin Lvl (test code 3.6 See_Comment [Aut omated message] The = 0845) system which ge nerated this result tra nsmitted reference range : 3.5 - 5.2 gm/dL. The refe rence range was not used to interpret this result as normal/abnormal . [facility] CenterAlbumin Uttvd3497-42-93 11:49:11 Test Item Value Reference Range Interpretation Comments Albumin Lvl (test code 3.6 See_Comment [Aut omated message] The = 1123) system which ge nerated this result tra nsmitted reference range : 3.5 - 5.2 gm/dL. The refe rence range was not used to interpret this result as normal/abnormal . [facility] CenterAspartate Aminotransferase 2021-10-24 11:49:10 Test Item Value Reference Range Interpretation Comments AST (test code = 14 U/L See_Comment [Automated message] The 1920-01) system which ge nerated this result transmit lakhwinder reference range : <=40. The reference range was not used to interpr et this result as paras l/abnormal. [facility] CenterAspartate Aminotransferase 2021-10-24 11:49:10 Test Item Value Reference Range Interpretation Comments AST (test code = 14 U/L See_Comment [Automated message] The 1920-01) system which ge nerated this result transmit lakhwinder reference range : <=40. The reference range was not used to interpr et this result as paras l/abnormal. [facility] CenterAspartate Aminotransferase 2021-10-24 11:49:10 Test Item Value Reference Range Interpretation Comments AST (test code = 14 U/L See_Comment [Automated message] The 1920-01) system which ge nerated this result transmit lakhwinder reference range : <=40. The reference range was not used to interpr et this result as paras l/abnormal. [facility] CenterGlucose Ickcl9796-24-91 11:49:08 Test Item Value Reference Range Interpretation [...] diabetes Lab Interpretation (test Abnormal code = 03928-5) [facility] CenterGlucose Kxfdy2120-08-77 11:49:08 Test Item Value Reference Range Interpretation [...] diabetes Lab Interpretation (test Abnormal code = 99420-6) [facility] CenterGlucose Mtfyo3437-55-54 11:49:08 Test Item Value Reference Range Interpretation [...] diabetes Lab Interpretation (test Abnormal code = 64297-4) [facility] CenterIg Saueofdmgg8757-17-38 06:55:27 Test Item Value Reference Range Interpretation Comments IgG Total-Hart (test 830 mg/dL 767-1590 code = 2465-3) IgG1-Hart (test code = 418 mg/dL 237-926 2178-1) IgG2-Hart (test code = 157 mg/dL 171-632 L 2467-9) IgG3-Hart (test code = 56.8 mg/dL 18.4-106.0 8-7) IgG4-Hart (test code = 8.8 mg/dL 2.4-121.0 Test Performed 2468-10) by:[facility] [address], [place], [place] [address]Cfb Director: Petar Johnson M.D. Ph. D.; CLIA# [id number] 2 Lab Interpretation Abnormal (test code = 41243-8) [facility] CenterIg Rxnwigpkcq3958-20-83 06:55:27 Test Item Value Reference Range Interpretation Comments IgG Total-Hart (test 830 mg/dL 767-1590 code = 2465-3) IgG1-Hart (test code = 418 mg/dL 391-232 6904-1) IgG2-Hart (test code = 157 mg/dL 171-632 L 2467-9) IgG3-Hart (test code = 56.8 mg/dL 18.4-106.0 2468-7) IgG4-Hart (test code = 8.8 mg/dL 2.4-121.0 Test Performed 2468-10) by:[facility] [employer] [address], [place], [place] [address]Sgp Director: Petar Johnson M.D. Ph. D.; CLIA# [id number] 2 Lab Interpretation Abnormal (test code = 33199-3) [facility] Jcnrypjrdy6231-81-56 06:55:27 Test Item Value Reference Range Interpretation Comments IgG Total-Hart (test 830 mg/dL 767-1590 code = 2465-3) IgG1-Hart (test code = 418 mg/dL 718-595 2511-1) IgG2-Hart (test code = 157 mg/dL 171-632 L 2467-9) IgG3-Hart (test code = 56.8 mg/dL 18.4-106.0 8-7) IgG4-Hart (test code = 8.8 mg/dL 2.4-121.0 Test Performed 2468-10) by:[facility] [employer] [address], [place], [place] [address]Nrn Director: Petar Johnson M.D. Ph. D.; CLIA# [id number] 2 Lab Interpretation Abnormal (test code = 32673-1) [facility] Wgwasgalkb1728-79-21 06:55:27 Test Item Value Reference Range Interpretation Comments IgG Total-Hart (test 830 mg/dL 767-1590 code = 2465-3) IgG1-Hart (test code = 418 mg/dL 089-220 9784-1) IgG2-Hart (test code = 157 mg/dL 171-632 L 2467-9) IgG3-Hart (test code = 56.8 mg/dL 18.4-106.0 8-7) IgG4-Hart (test code = 8.8 mg/dL 2.4-121.0 Test Performed 5) by:[facility] [employer] [address], [place], [place] [address]Yko Director: Petar Johnson M.D. Ph. D.; CLIA# [id number] 2 Lab Interpretation Abnormal (test code = 31295-6) [facility] Sxaayymzbp4087-79-03 06:55:27 Test Item Value Reference Range Interpretation Comments IgG Total-Hart (test 830 mg/dL 767-1590 code = 2465-3) IgG1-Hart (test code = 418 mg/dL 992-599 5152-1) IgG2-Hart (test code = 157 mg/dL 171-632 L 2467-9) IgG3-Hart (test code = 56.8 mg/dL 18.4-106.0 2468-7) IgG4-Hart (test code = 8.8 mg/dL 2.4-121.0 Test Performed 2468-10) by:[facility] [address] [employer], [place], [place] [address]Heg Director: Petar Johnson M.D. Ph. D.; CLIA# [id number] 2 Lab Interpretation Abnormal (test code = 62966-7) [facility] Kdovahrsuw9955-45-28 06:55:27 Test Item Value Reference Range Interpretation Comments IgG Total-Hart (test 830 mg/dL 767-1590 code = 2465-3) IgG1-Hart (test code = 418 mg/dL 950-974 0403-1) IgG2-Hart (test code = 157 mg/dL 171-632 L 2467-9) IgG3-Hart (test code = 56.8 mg/dL 18.4-106.0 2468-7) IgG4-Hart (test code = 8.8 mg/dL 2.4-121.0 Test Performed 5) by:[facility] [address] [employer], [place], [place] [address]Ptz Director: Petar Johnson M.D. Ph. D.; CLIA# [id number] 2 Lab Interpretation Abnormal (test code = 05537-4) [facility] Cqhiaipzhq3915-60-10 06:55:27 Test Item Value Reference Range Interpretation Comments IgG Total-Hart (test 830 mg/dL 767-1590 code = 2465-3) IgG1-Hart (test code = 418 mg/dL 242-965 9656-1) IgG2-[place] (test code = 157 mg/dL 171-632 L 2467-9) IgG3-[place] (test code = 56.8 mg/dL 18.4-106.0 2468-7) IgG4-[place] (test code = 8.8 mg/dL 2.4-121.0 Test Performed 2468-5) by:[facility] [address] [employer] [address], [place], [place] [address]Fqp Director: Petar Johnson M.D. Ph. D.; CLIA# [id number] 2 Lab Interpretation Abnormal (test code = 35284-7) [facility]:29[facility]59 Test Item Value Reference Range Interpretation Comments IgG (test code = 6001) 751 mg/dL 610-1616 [facility]IgG20[facility] 19:29:59 Test Item Value Reference Range Interpretation Comments IgG (test code = 6001) 751 mg/dL 610-1616 [facility]IgG20[facility] 19:29:59 Test Item Value Reference Range Interpretation Comments IgG (test code = 6001) 751 mg/dL 610-1616 [facility]IgG[facility]-25 19:29:59 Test Item Value Reference Range Interpretation Comments IgG (test code = 6001) 751 mg/dL 610-1616 [facility] 19:29:59 Test Item Value Reference Range Interpretation Comments IgG (test code = 6001) 751 mg/dL 610-1616 [facility]IgG[facility] 19:29:59 Test Item Value Reference Range Interpretation Comments IgG (test code = 6001) 751 mg/dL 610-1616 [facility]IgG[facility] 19:29:59 Test Item Value Reference Range Interpretation Comments IgG (test code = 6001) 751 mg/dL 610-1616 [facility]IgA20[facility] 19:29:58 Test Item Value Reference Range Interpretation Comments IgA (test code = 5992) 191 mg/dL 85-499 [facility]Ig[facility] 19:29:58 Test Item Value Reference Range Interpretation Comments IgA (test code = 5992) 191 mg/dL 85-499 [facility]Ig[facility] 19:29:58 Test Item Value Reference Range Interpretation Comments IgA (test code = 5992) 191 mg/dL 85-499 [facility]Ig[facility]20[facility] 19:29:58 Test Item Value Reference Range Interpretation Comments IgA (test code = 5992) 191 mg/dL 85-499 [facility] 19:29:58 Test Item Value Reference Range Interpretation Comments IgA (test code = 5992) 191 mg/dL 85-499 [place] 59972022-04-25 19:29:58 Test Item Value Reference Range Interpretation Comments IgA (test code = 5992) 191 mg/dL 85-499 [facility]IgA20[facility] 19:29:58 Test Item Value Reference Range Interpretation Comments IgA (test code = 5992) 191 mg/dL 85-499 [facility] CenterPathology Biopsy Interpretation 2021-10-22 15:30:07 Test Item Value Reference Range Interpretation Comments Submitted Clinical History e7bepCIgOTEha0xwKBZ (test code = 95610) mbGFuZzEwMzNcZnRuYm pcdWMxIHtccnRmMVxzc 9WoG9QaLbGcVKohsjCy XGRlZmxhbmcxMDMzXGZ 0bmJqXHVjMVxkZWZmMH knGe1vbTHcqUgpCvUxC LEby9tssjIUayzbkHb4 f2flVJJuDkF0rAUfJHd rL3gmfrQfiHNgXAVmER v3iF77XWHmpH8rjJIcA RccxkCbZwM8VQhkZHTe RlR5UOWseCVxLEZpE9y yZWQwXGdyZWVuMFxibH AuZVQ4bBxvu8E8vFSdv GVldHtcZjBcZnMyMiBO f4IlKBf5xFlqN9RbPYK sXvK3lNTyBQFeHGygDK YfJJZyokI3yO36AOxsv sC0hIJhs9Ahv48vj335 jO8pcMDzPRT1OAXwSZB pnMLgDZPaGPL1DZMjaZ TyV2ubCBQaBO0vgpheQ EdpQIfzHBSjeMA7GYCb zZHjV6WjLUHoUSjdWVZ ygrx5VrNsTb4lsJQxqM ofSUuep9ufe7kttRRrB of6GABvUyQpEawcCTio l3Njf5iwNZIebe1cOTF 5bMCkmOynm8H3hGZdYO YtvXMxeyEvLYDdTyW2M OxaQW8xuf64VHKsPVB0 ig9ycWBdnNionpVqxCS xUAuhS5QxBJYih610RY MxX3IvRPEcl9Z1iaSaO yAxQGVkiIJ9mlR6ABXj RIs5eLHlbzN0tzTtxHI cH1kizC8kOWKiHC9zal oyb3zmKRuzFTleKFAan VI4yaY6TGDleCBnS5Hw dS4iDJTeGJepCJKvyvf 4JeFdAa5deTVdhYdpUG xzYmtwYWdlXHBnbmNvb nRccGduZGVjXHBsYWlu XHBsYWluXGYwXGZzMjR adUdueFuofQ3dEwPvFw UvKXppDX6nTGCvE1lgq OAaGUIvPRNhS1vsPhDr zT6wxZxuXKpwbkWzTHY 8VDfba8ustxduwFHtbs H1pZUsSlMvZkA1MYstm GFpblxmMVxmczIyXGxh xkucABKdQVvlM6uhRdE zOJDjgOotBQyur7ViZH YxXGZzMjJccGFyfX0= Diagnosis (test code = 34) h8kijRDcOHGziSY2PzM pKQTal9llp1RiuPMxoG JvUKhwjNEotkXrqu32w VL3hY54XQ2rVWOoZqA2 IIQrpaD4Jsv3SLYnJRM zjEZkG049r8kul0axyd UspEO9uKmhDWTtupnjZ xH6LWlxQWLbushcERj6 VXxqZUJmbXM4USZtzQM oI7IiZHAoQG5hmji3CK G1LWiiFKMzEsN3YEFiu AAsWAQrsFryFTujh005 OYU8TkNyMHYgmiRfdPb hgW3uXjGeJGOYXeLpEJ EfyFqrR2XrJYGxiS2nv 8q1HTfbqxUlADw2OWOq D8qrdhdbwxEeh0DzkD5 dj3pfK3JxrOfwZ07vy5 hkiODtsNZ7fCMrLNGln cNcXYEsBFKtkCkiS6a5 aXNccGFyfQ== Gross Description (test o4fcgUHgDLGkjDMRCUb code = [id number]) wMVxhbnNpXHNwbHRwZ3 MzxptlZMcqGR5rBI2qs HengPLdiOZdSG5JLGWj ZmYxXHBhcGVydzEyMjQ hMMDedGByvFP0VAFkVP 1hcmdsMTgwMFxtYXJnc zT2KBAkqRRkD5BbPWAv QG1qojglJUL9JCqplF5 qeuPDWmxeJb1adEEscS tcZjFcZmNoYXJzZXQwX WTksThsZFZzCOz0mH5I EpqxR77ma2Y9Xvc8HNW kLMUoZ5ZxEG0iSVWmsT XiE38LBvdcAPX9EUZDA wydSRUrMV8Bs9cyVFMo qCYlWCE5SZchxPLuQKG pFQKtOIz8UDPyDSylwM BmMO5ymIyjVmlukWuug 2VjdCBcXGlkIDUxMDAy AJuxBYRxOW4YKoZwCVS 5JTLdOYLyICb8XDt6ES 8FGwZeELXgTNQ2ISU6R LAfLRb8IGroOP6NCCQz NjGrILY0NXUgCNSeBHN qUKp5YDBuTXfpNGSwdZ FsIFxcZnMgMTAgXFxmY vGgHKWgBQorpnU4ABVp YWluXGJcZnMyMCBBOlx vZWDnBWxgiEoktS7eNG UeE05so6WDy6RjTW4WS Dl8gzNihijbbA7hDQWq vbNnPSvapDHyZ5meIyg hOpSkCwGbVTPBu05huQ AoeKVpEIJln4AaDHk6l wUcZ01zH1RuSDqsLXHu wwXfIDMchMngJ2e4dXO 4DKJzZIYhJCGsI87iLJ Papw3dmw97ciHhotQoz LGtiMVhJnYhx1J0WHGp r9G0BRJbEFUsoJNucae jMT73WMQkROAlER6pfL VkIHdpdGggcHJvYmFib ETktSomfwValBG6APAk KNdkEMEdyNxjTXb0UDY 2Zf8ktTUcQFKqprJHVB 6fGEswuc78GNF1m3ihw WVsZHtcKlxmbGRpbnN0 IEhZUEVSTElOSyBuYW1 lPUxJTktCRUdJTnwyMT YqDmnmbHJMNAV4RKxlr ZgkyMs9j5itzOYxd6z2 QArbFNE9bTfDw3mnySX iIJzjNblmfRMlplK0JL hUVGUHMZzTFeOmIA3eG LqEGgsNEkT8UqXnEEY5 HLdVE7UJsVP8Ibp1UDe 8fXtcZmxkcnNsdCBcJz RGsU5eiRvdaL8qlNFvA 2hcZnMyMCANClxlcGlj HjRmtUUiRaXwcaS7AMX jaIZkPDQ6GZ4hRFSpzh bjNDNvBERmFWV1XNfsc I74uARgJYSiRHWqzRYp fVxwbGFpbiANClxzbC0 kBvYwa0mpdDm0RNTDKk pbtHDhvnzzfzB0MOAhl 6ylrMxow3XddFVkCL7x aRottG8yWpPyHbYXIi5 = Disclaimer (test code = d6wjjZOsWBQyqFSlLyP 9844) gSUKiJAGri8bvINZuoD FuZzEwMzNcZnRuYmpcd CMwIBWcIdDbg5bkd727 zXLvj9osAYWfEvW6qXQ dWAJupVKnR136EUWsCT sha6ipa4UdGADmbQBlc 5B5FZYRwmuarDp7zCej F17bw5I1ZxmhS1ehJHP qHOArB9AzYX0zWUBhDj m6GWT7RUM5WXAqWXUmN 2RlCH9dLKFotEHwXAm6 f8yafDuyFMCwLOA4k1e iKVcohkAfWH1xsh2laK q1n8igjaQbPBChJQSxs UGYAYHmQ6MajMwyGi0u vMc5xTixXfdpVLR1Wry 7FW6cyv22fnu1tTqcKG MvqoojFbG0ITpeWJEbc bdyUSi3ROnlXMXqkXL0 ERGbaZJqS0UnZUGdIC1 omer3QDR2OIkrFRJjOm S7MPScfISzSRMzhDcyQ Zhfp721VXH1MpHhIC2x M6Obx1E8vZ0ceQQdRRM khAYoWrSxQTOuva5nkT XqFYyzp8CoCWY1npD3j YPezPGlUJVuEE98Izgi j8YpSqbjAMW7CMNwzuB qh8Srn6kwFyLpupCnC3 khE4NbEIZcVJKvXARaA iByvzZon4Yir5HrkGZd yMm8n5vfQEZyQZKxuMn hc8gvJKZ9MJUwF3O4oO Jzb1ieRWciLFTlmXA7c uN5RFGovECaR8GcrN1l TCYxZA3ahby6t5oiLPW 8ZRmhVOPxQmF8xnP3KB BcaGVhZGVyeTcyMFxmb 056BBQ3HeBdJGPgw1Tu K0JtnDrhU18maOtyG49 dOQPfdMyoeN5qoQfokG 5cZjBcZnMyNFxxbFxwb PWfqaapHPsdprG8LYbv sjvgJLPxIMwfV0ueAkS hNXXjrGkfCDtzi4XaJA GfQYHwXgnquuF0JPCZk 55qWCBmo9LeDAAfmY8z oOXmDBubydBqxAZ9HIt hdmUgYmVlbiBkZXZlbG 2iSUDaIV0jYTFnmdWej c8dmaPlZRJwUDBxM4Ur cmlzdGljcyBkZXRlcm1 dtjNaSMZ3NTOETU2GAS IyJZVwk09pMJQcfHdnr B8uzCJdqsVqITPea2Hq eG6aiOZQHRMkB7okWL0 eRIaov0UudQAwuDSelZ W4XERjj3JjAiJbdwGyt ECsbDPfJ3VugCtuZ6pl IKQjHRXqsrVurLScg4S qEGNkfGR9aNYeMP7TUh BJl86eRLUsXNMNolLqM BDclEmlrTZ1vwV5sQ2b LiBJZiBhcHBsaWNhYmx rRIZyh872tc4wdvJ5WN VkQHXkxzaql2GqIQOqW LWmfW23URLxYCFkns3k lknjyKWmzpPzQ5Igwhb 4eT3aKGZkRRauBNKvAW ZzMjJcbGFuZzEwMzNca GljaFxmMVxkYmNoXGYx HGxtI4zuTaMvXzRuUmn wYXJ9 [facility] 2021-10-22 15:30:07 Test Item Value Reference Range Interpretation Comments Submitted Clinical History [id number] (test code = 37819) mbGFuZzEwMzNcZnRuYm pcdWMxIHtccnRmMVxzc 2NmI7ByTsXlWDwdvfTg XGRlZmxhbmcxMDMzXGZ 0bmJqXHVjMVxkZWZmMH ssBe0ccSUsgKhfPpZaI QOnr9isuaWRbubnnSe8 u9aaRXEkVeN4uCBeTGr tE0ffaiDxpPUvMZWgHJ b8jF56ELYdpI8smZYyK HyofuMbAnZ8XRrgXDCw JeN8AGVylPMySKKvC1t yZWQwXGdyZWVuMFxibH SvDVE9nRpim4V4cQQhz GVldHtcZjBcZnMyMiBO z9PbGJs4zOiqA3LxLNW sAmC4oLYmXDGxLMisKJ BwTUAtiwQ7pG44XKvtk pB2xHKmp8Ife37an762 oE6suRQfYIX8WMRbLXV xoBZrVYMwDMG9LEAtiU XsX6hdHMJcDB6ysfpjB XvyDEkuOIVitET6EDAr eTNwM9UaMEKsIQkbJOQ vjhm6QdEsMl4arVPvsR gpWJfao8tth2bqeOPlT mx3ZLGnByVzQjxqJGwu j8Qst7nuZGNvpi3fLAW 9zMKqmYxvj6Y2kDIeJU JcuXAtcgVdRQHyWwL1R JndFT8uor50LQScAZB1 km8gtCEvaYhypbTvuXS hIMveY9NxLWTja414XS HkZ7GeVDYfm5L8afJtO rHmNHLqeYM0gyD8UEDm RCb0aVPjruW4txAfzJW yA2zwjQ2vEHGbUO2zay rrx8ebWKmuKDilFLXyq GB3nyN2MXKtqOYdN8Ni yT1aHOOaKJxkBFOhedj 2NdIeAd9ehVBteAdqFL xzYmtwYWdlXHBnbmNvb nRccGduZGVjXHBsYWlu XHBsYWluXGYwXGZzMjR dtIvowFjutA9lLiJrVy JbTZtyRK0tMLUaW3mde PPpYAQsLBIwC3vlAxBf eD3wvNlyBOqsotHrONH 3XRjmz0xykbugfPPexw F6rMLlEcEiIbN5QZcna GFpblxmMVxmczIyXGxh inwgQZSrGDvoG8icQoL iCBYxqUteKZyiw8FeWW YxXGZzMjJccGFyfX0= Diagnosis (test code = 34) m9wcpQFaWMYkuVN2KbT xPAFbk9udp7IwsZUifD SsRXqhjMGwilNrse66x ZJ9jC53VC6kVYByAqO2 YBHwfbW6Bpq3UHAuQRU nzQEeZ498m3rnh7fxxx OqiUA3vVzkMOBewxyeD xI4NKkpQHNkjpvoBNt7 UAfyXYUqmLJ7GMCzoXV mO0HwZBCeMZ1phdm7GD Y3ZOzqIQBbDhE1ECOvw AOwLTIlaHccNNscc633 MRU3MaBaSDSwxyZshQa hcJ8iWbUfMWMEDaFxXV DgcUtmO1GzWSPjeP1qn 5x2ONzdyiIhZDa8HVVn U3mirmexunXta6WmsC1 sw8udN0RfiMmmM28ds4 oqjZBdbHF5dNOhBGHvr qIeDXXyFLKxtItdA9a3 aXNccGFyfQ== Gross Description (test t1ovsUZtHLTzjELIPVv code = [id number]) wMVxhbnNpXHNwbHRwZ3 OufvlvXVquUP7yFA3hg HurtEWwiUXnEC9AWNAr ZmYxXHBhcGVydzEyMjQ lKQLofKJkeXK5UWUsOI 1hcmdsMTgwMFxtYXJnc oC0WEFlpZOnU4SrLIWx UH0vuzawMVN9RHbtzX9 scjBTDuekOs2spIZboS tcZjFcZmNoYXJzZXQwX ZVllEudQTZkCYe1vD6Z EfszA25wj6F0Avh7OEQ qAEFkZ3HtZU3uDNTwfR JoU23NJgrsLUN3DZKOG ontEDOkGO1Nx8fkBQEf oFHeOVY0JHsnoSRbXSW iUUDdQPv5APLrECunlQ YmOG4hvArfSvlmhWjvy 2VjdCBcXGlkIDUxMDAy IHncYWDrFS8DAaRqKXA 1LZEgLHRvERb3HZt5AX 7DDtKjKRXpGGK3UKL5V SAjIJk0PJceCN7LLNCo KnEqKYF7AGHnRSMdJWZ iYJg5WABxEYnvHBLlhG FsIFxcZnMgMTAgXFxmY iBwUZZkTGuvhoE3NLUg YWluXGJcZnMyMCBBOlx hGPSlEVzumLagbS1oQI CyF93oj1FSc9RnRY8XY Jt6asEsfpiseV1jJMGm mfNaHIjbtFWcS2qeAzd bYjWnJaSpZRFTh94xwH LmxFJkIRXsc7YmUUq7b cAjA77iM8AqPPbzASYe ldJjYKChqGrlZ6s6lOK 3TPHyEZDbCQYhX52gVZ Hsgq0xwr46rcFcotQfq BCdzSAxBgScq6O1ZJCa g4H0HAOoAAAcmHDbkle iBC60SCKuDRUwKT9vmP VkIHdpdGggcHJvYmFib SMatBlotnJcmRF3LYYt BBzzVDYdsKvwBHn5TPB 4Tx1haTIhHAKoxoBLLB 8aBQatzr56QLU5z3vhr WVsZHtcKlxmbGRpbnN0 IEhZUEVSTElOSyBuYW1 lPUxJTktCRUdJTnwyMT CpVlehaUNMAIM8PVkha RprkQw4y7acjBBfj6l1 NYhfATH0jFqYh7scoYM vDHchQxfdcKSuxlG6SB xYPWUCOEpTKwJbTA9oB ZeLRvxJOkR8OlLgBQE5 TQqEA8RQpZZ7Agn4ZAf 8fXtcZmxkcnNsdCBcJz GExK4taGgztR8gnGBkU 2hcZnMyMCANClxlcGlj MpZrzLZvLtGqqwA9BHW ynFQhHPB1EL8gIZIknt rfHVRfOJMkBJZ4XRryn Y43tKDcGHBuQXMllQRa fVxwbGFpbiANClxzbC0 zUdJxq6rigOk5UNUWJs cqkRTjdpcftzD9MGFya 0bokTfez4DxuNYnQZ5y cZhkpJ5eDsOkWsKQVp9 = Disclaimer (test code = w3cmaKPhBPCxrJOqIvI 9844) fXEFtVCIot1njWCPsvM FuZzEwMzNcZnRuYmpcd OEbUBPmGnQva1wyj833 aSYui7xjYDTeYpD6jPF sCATlrWSzV630SGRnAA nxs0fgl9JbXALxeBZil 5X0BFOFklgpsRn9jUkc P09di5F8GrobZ7igBLM xRQRzY2TnIV5vFQDsCq z2ZSA7TGZ9OHQjWJYxP 3RlLT8zGBUsrGCnFOr3 r3bjnDgqZDFpIXF5h0r lPZmmhgTbPO5nxo2ngM y3f8iqvhHnKQEsHOHxz DNWDBLvC5TpuVnbQd2o lGn2eBgxAdavGGT5Yga 4HB2ppv69fss6wWghEQ PnfrjxMpV9WYztRAFnp bjdOWu6MVmdMCYqzJX3 YOVgcSLzH4NoLAEaRI0 ttck0SKK4XZqoFZJpVe G2XCFyoLXrLXOplGkhW Witx753YAE5JbSrFD9l L6Brw4E7mQ3noLLvJEK siTZeLySqZRFeqq7vjO OwIWjfm1CvRXQ4ffJ8b VZjxBSlVAUbHX84Mwkz s2OwNnxqRPJ2TORfwtV bm5Blh3jeFsGoyyVrH3 pgJ7RxPXWyXMYaPUZjF pDfxxDtu0Ofj4UasMQk tCv0e9ucFSHoXUTuhDc jh7mhNTY2BIYtI5V0vG Bjq2afHKksGXToyGZ3a lZ0JOJndMTjF9AiiR6q PQYpEE2iwqv8n4ynSLL 4WOsxYXSnZnO2moV7QZ BcaGVhZGVyeTcyMFxmb 231SHD0FgJnEFFul5Xg P5NjgUtmY84qyPqtL06 rEMJpkEfsaN5gdJqfnW 5cZjBcZnMyNFxxbFxwb JPrioboUZmdnjJ0WRsb rnxjRVOdWKgjO8sqXsG tWCXnrQibNLmla4HxRK HjCMRoEhpjmkN5LVLDz 81wYQZfd2HkLUUicI1k wPQeBUezjhUolRO2ZRy hdmUgYmVlbiBkZXZlbG 4nXXObQI2uABEcwgDyo l3dieUxWZEzBDYaE1Lv cmlzdGljcyBkZXRlcm1 cwoFgWUP0MLXOLV1EQE WvLZHmr37mBJVhpZlhq J8nrDWgroXgJETji9Uz fU1tvCRTJSWdB7zwWW3 jVPpgd2BhjLOomPVheV I0NUAdd8LjNxOswfVyq AAkoLItO5MbbWkvL1uq QWCiYPIjsmXpdBXos8E iFGDswUJ5kNDfJQ3FKx LNq92xMKWyZFVDkaWgW THyzLpjgED5qiW9hE3w LiBJZiBhcHBsaWNhYmx uIDSts508bq6riyR9IX GcVWHdvrgcq6RsGAZfR SIgnW33YHBuAPEsqm2i zbcwuFDkroJmL7Buzka 9cW9bZCVfSLwpZOTxNN ZzMjJcbGFuZzEwMzNca GljaFxmMVxkYmNoXGYx CBrwA3wkVfYrWhPkJys wYXJ9 [facility] [place] 2021-10-22 15:30:07 Test Item Value Reference Range Interpretation Comments Submitted Clinical History o4ojcVVrBSRfu8atHHR (test code = 68791) mbGFuZzEwMzNcZnRuYm pcdWMxIHtccnRmMVxzc 0AjI7YyUkKpUPcvyvNu XGRlZmxhbmcxMDMzXGZ 0bmJqXHVjMVxkZWZmMH xiCe5asFTmaLupOcTaQ DWpx3adviAReullcZv8 r3owMZJkLjU3sRDeQDa zX5xdgxNhjFUeRWPlSK c4vL60IBXjuT3dmZGmA KylhwMxWbC9IOsmKQMm PwO7TIHsdIFiAUNkS6n yZWQwXGdyZWVuMFxibH VeFZZ3qXzdu5J5mCAzc GVldHtcZjBcZnMyMiBO w7VeMAo9oFtkL8PzVZJ mIaG5dZTcCYOyANmtIT SoZVScdpQ4uQ59LCwtw sB9zPZck2Mbu22jt617 eC2thVTyQYX6QNAhBPF otXXnVLEpDVM2FNLdrK FgX4luNENyKK2ecofmF NopTNhiNECngRG6TVAs mSTtP9CaDWYhVGimJRU wpmt2VqZiOx4bqCLgiZ mcQNlco7vgf5ihmYUaC ce3JGEvWcSxEosqEAgu h0Wsi1onJCYelj3aNKK 9mMQbmWngo3A6yZJzWZ AbwUIneaSuNORlLtC6F AamNG1vya05JCAyYAW5 dn4cbXFyxFuabiCjlDR sUGksD3EtNSQps490GE RiX8BuFIBdl6X8urPyH uBgJDFiyPV5szW5GHTe CXr5eYCqbdZ7fvAzqBL pZ4tjoR7oKMInPE3hqd gvg5hoUDsuZFkvNHXuw HJ4mpE0ZIKieRIuF5Os sJ2pEAPaYFpoWVFobri 4RcDyYl3cxZBwsOguVV xzYmtwYWdlXHBnbmNvb nRccGduZGVjXHBsYWlu XHBsYWluXGYwXGZzMjR qmWbhjRylnF1vDnNsHl VdBTeyWD6zZIUoV7wtx WJjWKTyFSQoR1tnZkRo fT7yaMpbPSguhgMbLFO 9FAlht7wwuoouzMDllg G1dZCiAaVqSvW7UImrs GFpblxmMVxmczIyXGxh ahkhQGPlARtzG1osTzD iVTCoxKbfCUymu5GwTQ YxXGZzMjJccGFyfX0= Diagnosis (test code = 34) y4jniNYkEWYbuDW6LlJ cCFUvf0zmt9KpzJQivY VtSWlatGQubhKcln90i YL4bD70HN6yKSNjFpI9 CLExtbE6Hyy3VYQoQHS pmINeR102k6vol9fwsf QgxSN2nKccPKVtfpovN fW2ERpcTETskucdLEn0 TLsrXRJvdKR9MQXlaYE bO9BkZKVoPY0mkpw8LO G4AKxdMKDzXpM8DEWtn KVqLIQjsWqpBUxmk676 PTQ0FhKxZESlmgXdyFm dxN5tJhVaWAJHEiDmRL UuzNzsA9OxHPBswF3sx 8w6NWmrmqWcZIx7KMKw I5jsxaokgzHfz6CbpW4 ve9opH2EccGweB59hf4 hrdJSpqXI1xJZiYKEsg wFjLNBaLRCbiYucG6a5 aXNccGFyfQ== Gross Description (test z5bpiVHiMFBhhTABCId code = [id number]) wMVxhbnNpXHNwbHRwZ3 GdwbrdARjfYW1gUM8lt DnlbPQskNEbBS5GWXLb ZmYxXHBhcGVydzEyMjQ kWVJvfNIavLB0HMAyOJ 1hcmdsMTgwMFxtYXJnc mU9VLVojNBaA4KpJXKt AM0wbfmgUCS2PHhpeJ6 tmvBWDpbyAs0dqOCptV tcZjFcZmNoYXJzZXQwX JTblDjwACTrAIe7yC7D ZnjvA96tx3E5Fwc6PMY oXHBiX8SeTC8fTNCieV VlJ81WGoryABD8GLKRV ybuFEGyJI5Vo0vuXTAu sJWvEOU7WFomeMGqJZK rZZTdKDs4GQBzRCeybG SnKD3ooVyfTmmumXtzw 2VjdCBcXGlkIDUxMDAy QRwiOJZvPO1NDcQdVZQ 9KRNsPNIjYVj4KXk1YN 6YKiQgCWCuNFQ5TQE5L SHyEIw3DLkxCE2LFLBd ZrXoDFR1DCZnZSJsWRQ cGPg3GANeMVtxSMXkgI FsIFxcZnMgMTAgXFxmY xXjXMVgBCoyyxY9MGLr YWluXGJcZnMyMCBBOlx vSXWtSEtwjXlybI0dGK DvG37si0CRh5DpGJ5OH Ss0soApjziauM6bLMFf ksZsDJhwgEBiJ2auQfd nVmEnEiQcVUOUt14omL CfmGMjLFNma4BmAZg8f uTmS37lJ8AqBGsjBNRy gvXzQXIpnDdbZ8v4eHT 9AHIrSCGbFIXjD70qXN Kktd0uwx97oaAgdoXmy CFwpMInUcGyw1W9MMCw h3I0OGWeTCJnvXZlivr jPY08CWDaPOZyXZ2erB VkIHdpdGggcHJvYmFib EFekYmldkLleQK2QKJp MTugQOIsgMiyJZs8ZOS 3Th9pbTEgKLGhboGXRR 5iTRsksf90SSB2y3glk WVsZHtcKlxmbGRpbnN0 IEhZUEVSTElOSyBuYW1 lPUxJTktCRUdJTnwyMT ZlMoxgrWWSTVL1NElbs KjxcBs6h9rxwROhm7o4 MZwkDKH4xWtJu3tdaJK xJXkwCoujpOLipeL5HV nVPPAROVbUJhEdZR9aC FeWErqYCfJ1KqBjAOH7 MBxUG8BRuQC2Dyx8BLc 8fXtcZmxkcnNsdCBcJz OImB4ejGprdO5qtZJmU 2hcZnMyMCANClxlcGlj AcShrBHvDpAqdxM0XSN mbERmGDK3CP9cZJDojc drSURaOOEcOXF9GBsxn U33wFRxSPFmDLYffPYp fVxwbGFpbiANClxzbC0 vQjNyb3xoxVr8GRQRTa dqnUBymzvwdbT4DNXjk 9yfzBiay2HrqMUmBL9j kBhxvN7bCgLdRoLDVc9 = Disclaimer (test code = m8yygAVlQZIolUEbRyU 9844) yCBHxRNRpz0thKORpqV FuZzEwMzNcZnRuYmpcd LScKGXyAcDbq2hai253 lAWeg0fyCWYpIlP1wJR mPLDkjRHwB508LVQzEC wuk4pke5PnBQErhXNqi 6Y3IFCXdjbevTh3wTvy S03hg3A1DjzsB7eiTKR yUOGvI4OvTD8yEDBxSu o4KQF9QQC3ZNWhBKShZ 2AtYS1jIVNgkBOjNKt4 b6tjiZamKSMqCYD3g6i oUNofhgZxZR1jww9sbN y5t1dzifEuBRZkGPYjv BXQPQCgX8DomNvrHi3y oMr3eJfgStcrGOS4Kho 3PO2yno74mxh4dLqoAR OwxjpeYiU2BDxnLLKwc joqNCz5YSjgPTAljQU2 OKQtgTIbK4UgQXFqRD8 algx2ALT2MBseCOPlGs D9LTApuWVfKXTebRolA Oiyr542SXI8PbVxUO1h O2Xii4S8lG5wyHPeDIA ivFYkTxDiEVJjww3zcC UrMIirt1VuQHE0dmO0m SAdgQKiGODdVI22Tjzb q7NkEkpyUAH5OLEallW le7Dim0gwVsAogdZwV6 psT2IaICEcDWQbRKMuH wWmuqOte2Ayb8UgvXSb jXg2d4zdFDPnTVQdfYq oq5qmUWR6VNFmY6E6pH Zeu9xkJJwyLRSmtJM3l bZ9THKygDFsN0AlxA6o QQVfIT7ewhv5g0bsNIC 4AMvkMALmFmR8ykJ5BH BcaGVhZGVyeTcyMFxmb 379FFH1OfUpRPIax1Gb F1NscWwoA26wxSqaQ73 hOCVvzLajyY8bpExegF 5cZjBcZnMyNFxxbFxwb IIvdlfhFCimkdY7WDjw sorzBNWaHUuvC2fwKsA gVFEikGfoYZthh3BxLL DpIIEoUoqmtvR0NOTNg 65rCLCyn4SpBMTqfD3d hOOyMBybjhRazOX2SJa hdmUgYmVlbiBkZXZlbG 8yQBWsZX2xECEzlpIjg b4ohyYeEQVrMJQuM8We cmlzdGljcyBkZXRlcm1 jalKhDKU2TGBNUI5DCQ LcPPBrx57pNWMwoPkby D5ghJSrzeZxARKfu5Ca pG6pbUJRIGNjQ4uaOG4 vHIxie0SlkOBumBZtkE K8YQJwq3RqRtCdlcIlf IIfuYAcA3KizNkiT5fs DZRwUZTzkzTepXYgj0D tEWJavZI1wXVjAB2VZm ELk88tDDPtUVUCjwSkU QPrsEpkoHL8qjK2bJ3j LiBJZiBhcHBsaWNhYmx hNNDbe754bm2jolJ1VV JrBXZizenef8HqBFQlR XVdxU57KGTiBBPbpf2a mbbonZYlnyFqD4Rthpd 1lA1hGWKxMMjmXAQvNQ ZzMjJcbGFuZzEwMzNca GljaFxmMVxkYmNoXGYx ZEoyT1kzVmYeMhMkKxr wYXJ9 [facility] [place] 2021-10-22 15:30:07 Test Item Value Reference Range Interpretation Comments Submitted Clinical History r5xalGBlILEsm8vcCFN (test code = 52374) mbGFuZzEwMzNcZnRuYm pcdWMxIHtccnRmMVxzc 2QjN6PsBcWgHPprdaLy XGRlZmxhbmcxMDMzXGZ 0bmJqXHVjMVxkZWZmMH vmOz1lhMGjjFclPgTuN EAgh2rqlyADlqvwuDs7 y7gsZTSbFqI1zTEnQCf uJ8mjfnPleIFwOAUcBF a0mG79QGYmsG0uzGUaS RefcyMmWkI6EIndAPAo FkX8JZOqzKTfVGSvB0j yZWQwXGdyZWVuMFxibH QsFRA2bOrwa5N1iSEbq GVldHtcZjBcZnMyMiBO x6TeSDc2cXpvJ2PfAKO aFrF4tIEnORXeLCdeIW FuCGUaqoO3aB88KLnod gD2uIQmc8Xgl63en713 bU9wpQUzCKY5OFIrUIC lgHRwUOVmZFP8NJTwvU DaB5hrSTTvFH3mgldxO OnkEAsdBXNjzJR3MXWs ySXyM1FbNLAeKHrqQWM dnil9ZtLwFa1yoGJxuC jyBNqge9uhs9lhsLPpZ jz7NYLxHpFtYpldVDrh e5Fpi1mqJIWejf5bIJD 7vUAjvWljn1Q8pAZkSL KtpTJekwGvACAfJmP0D AzgRS6ind09KHTtPLQ3 ja5cqCTqyJfmntApeOO aJHexW4TzUHCzi468JW ZzG4MhZHYdq2D6svBcJ wUvLQUaySC7lkF3CDGg HWj1bRQyaeC9ukHpmRO yO3iwtF5cKLBpBC5hyh xpm0sdDVxsXDbsVTWoe UG6alM1MYSosXRxY9Qa jK1ySZZpQUxrQTQwgpe 8JvEgXe7gkRGgjAfeZM xzYmtwYWdlXHBnbmNvb nRccGduZGVjXHBsYWlu XHBsYWluXGYwXGZzMjR rkZhbvRmsaE2bYjLvSq TvMElxMM0cMHStG1ona WVzDSJmKDCrX7vkInHm aG1ojTeuCHjrdwAhMOC 6IUrdw4qnxjjdhQDfdi Q8cYIeKfOiUmU2HEupi GFpblxmMVxmczIyXGxh eyyeHIMoJWqvZ0imMdQ wUYRmqNuaYHloo6CyLX YxXGZzMjJccGFyfX0= Diagnosis (test code = 34) g4lajOQaQGFmnZU7PlQ lFPChx4jtt5FvgKKplV JxVUphbAFtmoMcyd67f RJ7iB92JP9oXZXiSmW3 MBQuprR2Fhn9TPVvYJQ vyJSdQ013x1exg2yrri HpoSL5pQveSMBwynjrN rZ2MFosKGLisrdtQJi0 DXqsNIZbdQD4PJXexCI bK6WeOUSrHE4xlam7PE Y4ZLocKPJdEcB3IVDkd TMlVCUrvDlzVSyfh993 CWJ0ChIiRFOskaXsdCh ieV5cWpDxMAEOCbHcZQ NwxHjlA8HvDIIhhL8pf 3k3YXgisyZnHPj6UJTf R0lhiigkirXoo9VjbB5 em6ttX1DnqLimY79kr8 hagPNvnJI2hQVlPMKel vKeCEKcFMBpsCfzN4i0 aXNccGFyfQ== Gross Description (test g9hheMAfKYLpbOSNKTa code = [id number]) wMVxhbnNpXHNwbHRwZ3 KskrdaXIeqME9yKV6vn JmcyFVmeUAbFN7TEUGm ZmYxXHBhcGVydzEyMjQ yPZOocOYlkON8VIBvXH 1hcmdsMTgwMFxtYXJnc kT8BVDcvEZoK4ReHWAm NT3vmixiEYD6YNhfeU8 tnkECMlcnQv4icEGxqS tcZjFcZmNoYXJzZXQwX ZNjjNksROUvBCq8tA0I RjjdG65gp8D1Tfc3KLS oELAyQ2EpYW1wXXBymB KnH74VUypqRTA0NWWHB gwqPUUtIO2Xr4opLEWg mLAfVXD0TNzobUVcGCK aXVOvBSm3HBMsRRvqdK BqEC0ghGszRtflaZxva 2VjdCBcXGlkIDUxMDAy GXohRESzBQ8XRqPgNHN 9YNYxUXTnLMe4VNv1HY 9RGbHwFISoHGC4SWC0L YUeEVp0WPmpLR4ASWNb CfDuZND0ZDYdKRLzKVE pHYo1ZLNiFZraBPSmvS FsIFxcZnMgMTAgXFxmY hOcIOTwEPmvsuR2ZQEu YWluXGJcZnMyMCBBOlx sGPFbWTgtzHunpF8vLP JyN39hm9UYw8RjRB1FH Xa3hkMksezxgG6lKHSz siPqSUhewFAoZ9lgRot wWxQkCjBfQLNBy09khA IxiKOzBWMbi4SrMNb4y jEvI82oL9AoIPcoDCBg qpRjBHGcsVceX5v0hZD 8DMKnQRIqEIWnP92fLH Ymtl7ady89jhKpeiOrc KDqvDDpUsJms0Y6MUYj p0I1GYTyJIDeuWRgaui rDC68BNNuJABuTH7pfZ VkIHdpdGggcHJvYmFib KZqcTfqsqPbeVY8FAFk FJssRCPejMqnALw2DPB 2Rb3egBIaZWNtzxTQGU 7aWClatp74NMD8o7wqp WVsZHtcKlxmbGRpbnN0 IEhZUEVSTElOSyBuYW1 lPUxJTktCRUdJTnwyMT PsTeunrEYXBFT5BJbbd ZvjvJk0e9yktXSnl5w6 IEetUEB1xKkOd2qghJU pBAokKtkxxAObcmP7PI tEWXFCFPsFEcPiCK6rQ PcVShcNHwN9SeNjRYT0 SUnWH1WXcRH4Xuc2STv 8fXtcZmxkcnNsdCBcJz PXtK6kxYrkbP3lnKWyH 2hcZnMyMCANClxlcGlj PiCvuYNaRzSdakT7JMP stCPiZMB9JE8yFGUypr zrHMKpAKDyGTS1IMexd L22kSGhLOBoWHKtdPHl fVxwbGFpbiANClxzbC0 eCpXxw1thrZw5YFLVMk ysxYUkzqdheuN6DOPbm 0pyuPink7MazBZaPQ5q xNrxlU9tNmGpCwFDBk6 = Disclaimer (test code = y1thyZKeAKGvaCQkFtB 9844) xLKApGXZbk8bnUAPbrJ FuZzEwMzNcZnRuYmpcd AYtCKMxDtUmk2mza890 mMUno5xzRPVbXyU6xJI vBMRzgSGmD389GBNkXA ptq0wkd1CtSHAnlFZcq 3X6XTJRfvwqnEl4iVtu M04rw9I5UbmzL6coBXD mNNGiD9CoVE0hENQdXw q8BOK7KGC1CWSeYJYfQ 2MiMA3jNQOmxZOfEGf6 p1mmkVgmBNZmVFO1f2a iPAeizvUrPQ1ccu5mlC s7c5stqiXjRLOuPPOwi UNJPGHjH0DscDqnKa3z bGj0oBgcSlwuWIC1Guc 6UW4dvh82fgm9pVoxBR UbjyywUsG8KDjvNQHze pwkLPf3YDqhNUNocDI6 KSLdvGHiN9GoCIGgIH5 ktjm7KOY3BWdePWMdFh M3VXCfeGMdJMAeuTtmO Bbqi854RXO5VtDkHE4p P2Wjo7V1eH0prGNiSHA hzWJnTqAlCKNfmz1qyB YrUWgxv3MkEME9baX9e NRarTVvWTQqVC19Izeq d9ZoPyqgSUW8GVOogfD os9Emz4dqQzAqclSuL4 zrZ8PzJOOiNIMvHJUyX fAmxgFui6Feu1TakJMx yVq6t4lrJJCcYWIzhGr fe8fjBZU9QYEwC6J9aE Fba7bxJOqqTXIqrSW3b rJ3OVMjjMQjA8FcuL0h WSAkNT2phkf2x5snOIU 7KIizWEMsMqE4svT2RF BcaGVhZGVyeTcyMFxmb 963XDF7VzVxPNGhd0Ul E8TduKszA17haNonG46 dJQHzcRrssN3lbIimfL 5cZjBcZnMyNFxxbFxwb KSryyflCFdpyqM1ZNfg rxebKQJcKGbrG7jwWvY rLCWujBifIHukk8OjAB BpIAHyUosiuaN7UZZGn 14lVGEha0KaXDNczF7g pJPxPJftrsWshLF4ZJc hdmUgYmVlbiBkZXZlbG 8gLGGfBT3cKCFbsaNzi a2hmcGbRCXpPJRuD1Qo cmlzdGljcyBkZXRlcm1 hxrXkKOZ0MPOOLV8VSG KgXIPfb37uUOQfcCmda P0uaUGywkTqMEHbb9Ag pI7ylNQLDOUbT6stUJ4 qCEzzs8EkeNPzpODjfG M7YDQhi9AnJeVadnNjy SSdfQWgP3LgzKmdW8em RQVyIANccvJoiNJzm0C mVFWncJY9xSNiMM7LZk QEs58rJKJbHERIhfNsY AConNqzxSG7oiZ7mM7z LiBJZiBhcHBsaWNhYmx qBOTtl405ss2mwoN8FN FmBASavnhqt0CvQDLyU IUagJ04MILoOSOjex5m zgkrqEWjgxNpZ7Vvhly 5xL5pWMElBHkbDPMxZF ZzMjJcbGFuZzEwMzNca GljaFxmMVxkYmNoXGYx VQsuJ8hiTeIgWgKlQbo wYXJ9 [facility] 2021-10-22 15:30:07 Test Item Value Reference Range Interpretation Comments Submitted Clinical History k2wyqNShHTFko0opWTO (test code = 06206) mbGFuZzEwMzNcZnRuYm pcdWMxIHtccnRmMVxzc 3NcF3UzInJiVIvwhaVt XGRlZmxhbmcxMDMzXGZ 0bmJqXHVjMVxkZWZmMH agBe7vvWRhuBtdLxSsQ GKas2zlckBFcsvwzGm9 l2hyXHUsFmL3nNIpDGo dS9gbsaBrnKDxCUUjER e3aY75KLIxxV4eeOXuU ZgrofUsSrP4UFcdMBVa TaA9MIUqyOPrUOVmU3x yZWQwXGdyZWVuMFxibH AbGFC8wUzsm5S0cJXkj GVldHtcZjBcZnMyMiBO q8RgTBi8wYyqR7GtZPH dSeS9xZAmKGTwOUhnES DlZQDsfuD2iG44OHehu bH2fKMie3Sli21jy166 iY7mqSOxTKA6JVMbKFF qjXOoLPIaLGX3XGYjgM LaX8unZXHvQK1nvezyN DdeOZktXJPrmIJ5JSPy uHKbE4JgHMOcNEggFHE wxve9OeEnFz6nfUAhbZ hxIXedw5hwb1zovFUpT pb9BCGnLlToQcotPKvn x3Cve3muLBTmsm9fBXV 6gGOjgRjpm9Z8tIPcRD CqaHBoruRrEYAwYfB2S JfiSE3ozw91FDGxYZC2 sq7vuOLjzCmvzvWgyLA pWPzhZ1EcSAOqz752OM KsR2QlSGDkx9P1gdRjP nPnQEDktKY7qiK9YRDv AHd0pAQjleV0bbOhhXV hX4tqeK2cILNuYE9qbt yzh3omRZcrSQaaXVXcv RQ7nmJ6CWAnzCNvZ6Hr wH6iDUUuBTksLCEhipt 8XmSvRb7diVKrrUbvIU xzYmtwYWdlXHBnbmNvb nRccGduZGVjXHBsYWlu XHBsYWluXGYwXGZzMjR rqPqgqVidkZ5sSfYcAj NzMGrmWG4oGREuL8opd IPpEIOaPBEqQ8egIzQz oP2ysEtfWRtvzsCyCXA 0SVdlf8ptfrnnvRCdxu B8lEElVoFpVnU0WPyvf GFpblxmMVxmczIyXGxh ilffRFGfEVojA4xgKzV zXOXubQfaNWgnw7ZyKO YxXGZzMjJccGFyfX0= Diagnosis (test code = 34) h2xxmCPdJRNueKN9BbO xAJEzf6vaj9JtvZTkhF YnCLtrrCCtiqTuil48p LQ4kY44ML3hYKVbIxX8 ULOpkeW2Wii0FCPjTNF ffTLdB271o1gau6kqjl QhjIJ2nJpoXSMdjwwpO nI2ALzcWXKuqghaMVc6 LWpwKAImzQP2DGYjySQ yL8KtQVJiNX1sjxe6MY X2WQwlUHIsGdD5VCGnp FLqROTydUwuPEljb356 BEO4DlBlJORgihDjlMl jmK5sLpKnICPFIlFlEJ EevAvnN6QlMMPdyC5pp 8c1GJtuplCuSDc1YOBp T2zyxsqeriHtp5TnfS9 tf5eyO1UbxGgrQ46vp2 foaCXanZQ6rVRdHEYlr eXmRGOzWPEjmBjbP2v4 aXNccGFyfQ== Gross Description (test t2aftTElOIWekPVGCEn code = [id number]) wMVxhbnNpXHNwbHRwZ3 VkwaqlZIicNX2xHR7ex NciyXBoqDHfML0ODYWp ZmYxXHBhcGVydzEyMjQ wYDKdeNMpyWE8DMDwBK 1hcmdsMTgwMFxtYXJnc xT4ELXrwTAuY1TiPBOl RU6tniykQPK3TBpslX9 lubWZVaqmYc3ftOArpK tcZjFcZmNoYXJzZXQwX INxwKpaPMYvFOu3iW7R ZaveF01su8H4Ydd5GLP lZFPuA7QzYL8lKMAsgF PoR86XInayIBM8YJNFM hckGXShUH7Sp4gpCNMc lWQtPSS6LJgdcTQnHUQ jGHLaPGh1MDZqAZkacZ NrGW3dcUsfNuiknXjxu 2VjdCBcXGlkIDUxMDAy URsyRQZxKW2LWrAqDPH 8HYYqSQFgDAb2ETp4OF 0WXaAgOCMhWVO8RYE8Z PNdCOa5UDtgXO3LQCZa CyVcRZK8IDKmMBVpCQZ aVPg0DCPgYGytTENmfW FsIFxcZnMgMTAgXFxmY lBgMGElCYdwelR0ZGWy YWluXGJcZnMyMCBBOlx kPHPyQVflyJvuvN2hAO KxM48yd3FZp2HbSY3DF Vb0ueRwxtgegV6dGXZt npLnBOwlzPEkK1huJvm jSbQoVbXeLBTRo90qlJ PzdWLsPJQkg3NgIVc0d wEsA22eK5SdQFxnOQWo ecJgZUAioKioO8e9gOU 8EYEpZXFvSJXcO63tDC Lwje2xje59lqUkbcVmw OXncNUcRxVfg4V5PSVt k4U1HFKgIKRhqOZmrng oIB88HYTvVIBbTR7dhG VkIHdpdGggcHJvYmFib HIofZpacaVizVY9ZJTx ETruCTUqyAezXZm0BOR 7Mf2vuFCdXTKaprFTNL 4aEJdnsb50DXU1b6lvl WVsZHtcKlxmbGRpbnN0 IEhZUEVSTElOSyBuYW1 lPUxJTktCRUdJTnwyMT UvThextUKNTSA4LKmdb QhcrOy0f8fgxDEvf4e5 KNlcCUD8hRwIk6ouvVK cOEjuUmuksNXisoP3XD sTOSJHTRsRCpXyKK7sR NnJKwxOSeG0ZqSkGAH6 NLvQB2AMxRQ8Rkq4SVr 8fXtcZmxkcnNsdCBcJz CVkO1urQpoxN9wgENmH 2hcZnMyMCANClxlcGlj RbDlnFCtMiKomlE1LKX jgDTeAOT2DB9tLZXejo nnFIXkAPMePFI0YFjcj U39hAXuBWZdDBRseLOc fVxwbGFpbiANClxzbC0 gBcPjl7cphGh4QNXVWi mxrENyzcqentR1LIJkv 5abnYrik1TjmONrZE2n dXliyK4bUqNmJyHNRb2 = Disclaimer (test code = [id number] 9844) hHNUdWIKzc0hlYTIjlG FuZzEwMzNcZnRuYmpcd JXeEUHdMdNnl4lmd384 jPHwn1frGPWsBqJ6bTO bQOTauVDjZ978OWZxFB ole7nel8EhOKMwfATrk 1O1MUJFqnwvjUc3kDuk O54ic4U9HiyaT3nuBPJ hCECdD0HuGL9sNPIaWn n5DDB8XBC5HOOdCTEfW 3JbRZ2hZIZphVGmQNm5 b4tcdZyiFZYyBHE3m4b yQUacglOyAA7kdn9lvL x2h3rjfzSgZUZwIZPoh YDIUMQoW8TdcQbiTk5s rWb7lGrqGzneKSD7Mta 9CD1lqd99pwl3nZehHG JmrfvwMzW2QOljAVSbh yijFDo2SPkpWTSzoWW7 MVAvjSOjY1AlFTEfGD7 tdbr9BYF3QStkLENnEy I2ZEWspECtJVOznNelR Lxba363IWR4PfGjMM9b Q0Bcx3B4hP6hyBSeMGK kzFRfMhScPWNvmy5xoK AdURhfo5HtOZD6rdS2u VQwlNPuGAGiJJ91Dnvp k3WrWvzoQVS5VHMxjnM uf1Rac8xmRwScrnKpN8 ujC7UzTLSxBTPoLMTlI gIrdcQax2Gpo0RxkQUz cPg2c0xkNZUlHONhoXm xh0dqRRL8IBMzO3J6kD Beo9ybEXbsNQXyzBG9o mL3MFZslGTyZ7SfmC5w EOXjGC6rceb0j3grWAL 5FKyxJGAtBxI6fmY7FD BcaGVhZGVyeTcyMFxmb 417TTA7ObXjWGSqp8Oc J5KjiZjjF07anErjQ51 qSJOwwZtxaT2tjQyxxC 5cZjBcZnMyNFxxbFxwb FBcwhzcNRglziN5PAxn rwfiKNYoSKvmL9xvTeK cGUCynCzqZGjhk3YlDQ WsJFEzQubilhI3AFZCc 44hFSBjq2DcUAKasW7i ySFqRSretdZlpGX9NOi hdmUgYmVlbiBkZXZlbG 0aLZIeHT4oZNWfpjVws a9paaMxQEDgWNEkO1Uv cmlzdGljcyBkZXRlcm1 okyAwKOK3FLIGCI7JVC IxUEKqs70fDSLdyUekj I1hnFOlxoHcBZBzc4Dd oV9tkHOVWRItG8vxFD1 oSOstl5TrxERsrMCmnH V4PDKcr6ZjCqYijsFfy BUjiECpC1DmsEafU7ub IWEyRPNrusRcmLPhx1O tMNNacKL8wKViOJ1JFq PGh80xAKYdJMFJcnAfT JJclXspiFF9inX2fI4f LiBJZiBhcHBsaWNhYmx vITMqr113xi8xfmD2KW ChEHSelbscr0XgCSKyB KBciT28SVSzIBGmde7z ucrtkEGmvrUaE9Jfdfu 7fG0pVAKbDXxzQZXxRJ ZzMjJcbGFuZzEwMzNca GljaFxmMVxkYmNoXGYx TGxpA5wbYsNuXsOaAld wYXJ9 [facility] [place] 2021-10-22 15:30:07 Test Item Value Reference Range Interpretation Comments Submitted Clinical History t5tblJSvROPgn0npELB (test code = 15299) mbGFuZzEwMzNcZnRuYm pcdWMxIHtccnRmMVxzc 7RcH1GqFaEmYIkekoDu XGRlZmxhbmcxMDMzXGZ 0bmJqXHVjMVxkZWZmMH ozCd1rzTGkjSarNiNfP MPmv5ybltETlvhzzSz1 m2qwMCXpIhN2tEXuODq bH1yxptCnjZJhNIElQQ r6cD20ZLAljU9dtAWxM DxnujNlWiZ1YNubVJJg EpP6LPIazLVxYXAwK6n yZWQwXGdyZWVuMFxibH IaFAK4eUmdr2P7nZZmu GVldHtcZjBcZnMyMiBO m6XoPCv6cJtiP5PxMYI xRqC5uGPtTFYlMMzlKJ GcDOMoowS5mG64RWudb dD7eDBdo3Auu90gt351 xG7nqIYbUHW5HOHeBHU kkNZxUOXfKPP3PEPamD HaN4tqSYJmBO0azvkcC MipQYnrCVQziCI8LSJu qOMzU6HuUHRdUFrxPET najc8VrBbJf2tuLPbkW qrBJeoz7nqj9ppcNVnA dw8ZESoKgEyMoxoKEpx d3Ajd1odBBOsby2zCOU 2mFPajQdla1Z5yFWmOE XwwLIjgnMvJCHeGhJ4B NiwTT0exw66PLWjDGU4 ct1ksUDcrNghwnChkVY aRHzqY5CaFGMxo388LN TtX4SfIUTvp8T2zvXcV aHuMJXigSQ2azP3HAQi KJp1pEGokrA5qxUtcBO tU6exlS9rSHRqPR5rog sms6upZPpySHuqAVZkc MF2khG4RXOnlLLuZ9Mu lR8bRHUvYMcvBZUrmpl 6VyKnNx4deKLluLwaJK xzYmtwYWdlXHBnbmNvb nRccGduZGVjXHBsYWlu XHBsYWluXGYwXGZzMjR lsLwgpSjaiF9aLdByWe JeTMvlTQ8tWFXhO1cql DOvIBUtWYXkA2ivPjTa gO2obHgjQOnhboWhTMZ 6AUsba3dnzkcdnKCxwq W2oEHjNlTzNwL8EBhju GFpblxmMVxmczIyXGxh niioVYTaUDubL9qrCaV uFKRjhQhpOVcwn3SdGF YxXGZzMjJccGFyfX0= Diagnosis (test code = 34) q4ceaTSbRMFdkDQ9ZzG gUZYqh2qwq9DvnYLcrM WiDAbazWOusqGuwy23g TL2qD31HI5mXUTeQsT4 WSLhdxK7Olw8KXFcWED yfNRnK995j5quw0zypq PhvAM4qExeXEIvwqccC tE4YBiuWUGtqareVBk2 XDptBNNlxOP6TQRwzUN pW3GqEHEpYR4giqi2LB Y6HKnyXCOeLtY7LRMpj VWnNCAplObsCVelg273 DWS0ShBrWQXcaxWjkZf nuZ4nMdScNXRBUmZcGA NsoUagJ2VgPNCnaF0cn 8y9YXglvwLoXJu5CXCh T2dxztlfqgFdv0GulJ7 dc5poO9KgfJgyG07kc9 ljsIYsdEI6dGWbDMDdk gYeFAFrAXWhbTikR2r1 aXNccGFyfQ== Gross Description (test l0rtwKLbOOViwMHLORb code = [id number]) wMVxhbnNpXHNwbHRwZ3 AlhwbqHRekHR8xQT7xx HajkOOnmKCmRE1ZEWKe ZmYxXHBhcGVydzEyMjQ nEWLmnXYtrBL2MZFwDQ 1hcmdsMTgwMFxtYXJnc fF7UOMkxAPhY2BsJCQq TA0iqephSWH5RIkvbN4 tbaGTRxaeMi2tkQDteD tcZjFcZmNoYXJzZXQwX ZAyaOttFAKuEKb1qJ0U JofrP37ta6N6Tpe0MOW yWXOaY6RgPR1cMSHpgA VaO55FNoriISS7LVCLZ awiGMSiEA6Ux7unMONe xTGhCSX2DCjsnKRdSQY eXDZgIRz9UIQcWWmspG FoFN4yoUgnIjsgkHwjy 2VjdCBcXGlkIDUxMDAy VZrcYCVjMT3ANxGbJXY 1IEDeNTNpLNt7GRw7MX 4HAfKqOIPyNJP3IPG0N SReBGj9JFruJG5NDSNj WvEePNT1BTGlQBEjEXX dVUi4XQHcSXkrXMVxoL FsIFxcZnMgMTAgXFxmY xOnGODdKQzwspZ4VRZn YWluXGJcZnMyMCBBOlx vZBNpBRxrxBzpaF5pEY JkR63pj7ZVd1AiQT0GI Of2ddGglvigjQ7uBZJy bnVuSEcfrMPqA1fiBcg cCrBsYtAhFJLWa85vdQ ZdpBFoBEMhh4ZfLDu2t lKqZ39nG2GwZBubSAHj ciBtRYRoeIgtW7q7vUS 1WQTnXGQsDACoS95fLB Nsra2csl29jrKgwnUsa YNxqQScMpNev2Y9CNGo x4Q3THTkBDFgvMMpcad qAO75KTWwXOCdNU7ozP VkIHdpdGggcHJvYmFib GXprEeewaOqzBL9PMZa WYctXXWleDelOMj7JXZ 3Xi8baQAhTVHqiySKJQ 0hSKlgxh29WIW4a0llv WVsZHtcKlxmbGRpbnN0 IEhZUEVSTElOSyBuYW1 lPUxJTktCRUdJTnwyMT WbArqkpYUMFWJ5ENfeu HuzrKj2g2alqMLby3c4 JPjnQXQ9fNfGh8ngqHQ wUMxeBoavpJIpznP1AV uCKAZPCElDKzDgDP3vC DoQMdfIVcQ9BjSkUGV8 SRfQB7YAkQP7Qfu4NXo 8fXtcZmxkcnNsdCBcJz JWdI9mcTohvO1gzWDpT 2hcZnMyMCANClxlcGlj BnFdkHGkMgHndzL4QFJ xaXElVZA1PQ1vXUQobs gzMISsJQBdHIR5QUejk E62yXDnWXUmOMImeQCl fVxwbGFpbiANClxzbC0 wBrLjh5rzpAj9DUWOVj xzyBQjkknactR9XHHae 2zmcJxeb9LmgPSaQP9n rFwtjV8yJwSgDgZUDk2 = Disclaimer (test code = z5ioyLElGBCepQXuBsV 9844) jKANyQYVuv7puRBYisH FuZzEwMzNcZnRuYmpcd DGpMTMvAgZot9tgq044 oHLqa3yePDFtJgM0eLP bWPEkuFCzE015PNTnHY oqg2yib1VhAMTqcGAfy 7D3GGOGsxjboXc4wNcy E17vi1F2RayuK7spKMW eSREnF8NsRM3tARRfMm i8WFE4GEB3DSUoKHIjN 0QoTW3qQJEdmSEhOIn7 z4nitOwlYDHhTKM1g7y hWYgkrpZgRX5rjd3chE z5y6sjdhBcDXFlXZHdq MXTGWLfV3MzeKqzBq8h uLp2eQiiBwfeHHI7Fbk 9OU2uyf08sjj4vMxvWT CcbzrgIxN0CAvmKFJqp cemVCi1ADjyKYBgfMX6 HKBqlDJyT8FwTHJiPY7 obhm6OAR1JXnbQUGtPk I8GGPujAJdWABshYfkP Izyx244PWQ7NqNpFM5i R6Rso5C9sO6acYGdDNU uhPJsOiOfENVztq7kfZ FjKTgda1PuSBD4slF9w KMccNBaVAVuWW49Soeq m9VmAclhOWG4JUKisqY bf5Dtv9nmVeEodwFyE1 fyM5CzAAJmOBEnKKAhO aUigmTev9Igl9VihWQt zBe4p8ngQCIaKOBteMx fs1xuOFY9INDfI1L2fM Utq3unAEsgKKIaqIH0i mP6JPVehTAkI7QelO6w AFOwKN0uquq2w6anGMC 6VHzwPGBiZxJ9hfJ0SU BcaGVhZGVyeTcyMFxmb 571VHG9PuBuUOVze7Ku M1MknUdlI04tzTwcG90 fHHLdcVdmaV1pzRxaoQ 5cZjBcZnMyNFxxbFxwb JBsamriEUiewiM3NFyw kwrmOONlUDnvP8ruGqN dVCNtgJjvQKbbb0BuQS JfAPQiCccqjoD6QUYFi 61sQLRbl3FsXTBwrI1q nOPaQWejmqKdxCV7VMn hdmUgYmVlbiBkZXZlbG 1nTNWgGX2zZMIoqgRde z4dlcEtJVWwSCYxF9Dl cmlzdGljcyBkZXRlcm1 rbhTsZGF5FYDTFF5ITP PqAYQvp21oXBXoeRijd I8deDOkjkSrPAPzx9Ds sG2bqSPVNGGzE8teCH0 pKCkos2OoqIUifPPmmB Q8KRAnb3KqOxXbizTfr UQtkOAeA0ImfZcwP4zi EPNeMOImfsSrbTBoy1O rGLQdaJU7xWJpEU5KAn GCv79wHVGcSJXTzaGgI GBakDhkjMN3idQ2aK8z LiBJZiBhcHBsaWNhYmx aTJUrr814am4vcsD9IA RkBTVssvtpi0WvOWNyU XImsK75SYSwUOLbcc5s kyimcDQfvrLiV2Karuj 2aB4dBEMcQAzxOUDfVA ZzMjJcbGFuZzEwMzNca GljaFxmMVxkYmNoXGYx WGjsO0wbHiAqHhLcXyi wYXJ9 [facility] [place] 2021-10-22 15:30:07 Test Item Value Reference Range Interpretation Comments Submitted Clinical History c9focHJuKJTlq8fdRQC (test code = 63733) mbGFuZzEwMzNcZnRuYm pcdWMxIHtccnRmMVxzc 1ZfD2AgXqYtYQsvrxKi XGRlZmxhbmcxMDMzXGZ 0bmJqXHVjMVxkZWZmMH hiNw8wzMWngVgpGtSmT ZCwl8xgwxCNuaoktRm9 d5icROGdPjQ1vJYiLZw yP2zekvHfuSXvHCRsVM j4vD32LVVpwY4haFIoD RemefQdZwI1OTvxKFDk LwE9IMJoqAGdJFTaX5u yZWQwXGdyZWVuMFxibH JqFKQ4mZspf0S9uFHhm GVldHtcZjBcZnMyMiBO m7MvJYe3aXgdY9QrEJO xTsQ4pFSiCMXcPSnzBZ VmGTDljnR1cN20FPiyq qJ6gLKti0Irj93kk458 kJ8ybVQhPGE5ZNLmXYQ mpBBaQBAtGOJ5XHMzyO EiG4avNRNhGU4wfmajP AjgIIetNMAlvIP0CUVs wUFmD5YzFAIlCNiaUQP ywky2JwObCe5lqJKxpV dcCJunw5mae2wsoQKoU ew6ATPaKsUiKfnlZEhe t4Vof6tuPYKbqo7xLLC 6aEKyoSvba8V4yZNxFI HtcXUdskDtWUBqUlV1X WwgWI1dml27PNYzZWS6 xg4xgEScjZktreQaaQU eTCbzF3LxTDIwf986IC DxQ6XgYPBez7Z9ijFbT rWsZXOaqVI2dpB9TLLx YId9mBElaiC9ioQqtAF bJ0obqB0uTGNeKU7vlc sbq4keQBofGEokGCYzu OM4qiP5SRZzvITxJ3Gl mU3hTFVoJDsxWMAassn 9PqMtOr1rdWUlhEjgHF xzYmtwYWdlXHBnbmNvb nRccGduZGVjXHBsYWlu XHBsYWluXGYwXGZzMjR wpAofuSjwoE7pLtWiKe AuIYycCB7kXUXxY3gbq YZhPEPvDPBqY3ztAjDz aK5hoPhaLLetrsUuEES 0DFyzj0putjopqTXcjk W9iQKiRdNpNuI0QFors GFpblxmMVxmczIyXGxh ghciNYPcMCyyF1dbJrW jYAWyuValLNoaq6PjIC YxXGZzMjJccGFyfX0= Diagnosis (test code = 34) p2jzqHKvRDEqjYB8BnF mKZLks4rwe2JwsHZapR EnSZdylINvkbNqxy35c MD6wZ91WT4pWXJjLwX0 VSSvveY8Otf4GRJoQSQ luGNfN101u7fyg5rbrj YgnYQ4vQosLMFklcagY nB5NVxpWCQsryrzTQr8 CXymBCCfrID5XMAiaGS sH4GwKVFbSJ2ydnl7AS O7RAueTANoLrT9XDPgy NLeVOLzoDbgBHgfa628 UYQ1UvHlFXUgfbMpmGa weG7rWpGaAYNEOeUfUC YkkAhcF5XeSPJwbP6or 0e0QRehbzOtANh9VGIa V4zflhkwzpGte8YtmP9 te5poU9KplRvlP15kt8 cgnKStfOL7yUYkTUHtt hIvKPOcWBSaxCikP8m5 aXNccGFyfQ== Gross Description (test r1znsOBfPMIopRGBZLv code = [id number]) wMVxhbnNpXHNwbHRwZ3 CnmauuPRkcHI0iWV3fw RcjySMmkJTgLO9JELRv ZmYxXHBhcGVydzEyMjQ wGOKqeYPauHC3HGChMI 1hcmdsMTgwMFxtYXJnc sR5UWRbqLGzQ7EuMUMl JB4vwtkeNOZ4EJlukU7 uvfTNNraxBs0kmLZalH tcZjFcZmNoYXJzZXQwX GKfnJekUDCcPXu8sE5E NlmbB87yk1C8Ezn7KHZ eLXJbW3YiCB7lORHfeY NaM35KMmtdFZM5IIEIL ukbCPGlKF8Ip9mjXPBv pBNyYGI2ZQvtaPZuXEF sUKKyKZg4RUEpLEzpcW AqCB1bcPueIyitoLjhg 2VjdCBcXGlkIDUxMDAy ANbbTQTrGG5ZYjMiPPS 1UYTkKRWrLVq6STj8MV 2TPnNhGYGnIBE8HGY2E KGyPYi5GAkiZD2OYWOa NwYzDFS1KETaHDWuOAU hWTt1YPAyQCofUFIrvO FsIFxcZnMgMTAgXFxmY aGyRYNjCQlbzkB5LIQn YWluXGJcZnMyMCBBOlx dGXOkVTxooPutgX6yST ZiP96pj3SWh6PoKN3WM Iu3byImrxxxbF1lXUDl rwSoUAgkwSArE9ffKgg wXeCpStKqASAPj99vpC ZtvGUdAPAsn4QuWHn6s eUaX33bJ1WjDYvqJCRp wuJlPECnfEyqU7l6bCP 3AMMoYESlVIFuZ20dNV Jqul6kyb59grXbpsGcw CPtlIRqKzBev5P5CGWz z2O2RPGgKQMlnSIxjjc oEM56NEAvTCWcOT0yzN VkIHdpdGggcHJvYmFib GTdtNymxuUxeYA2FIUc OFgzCJJazQliOIs2WEH 1Lr3hxSEmTHOzdbBEMQ 3yVIpcmf08EMU1s4byk WVsZHtcKlxmbGRpbnN0 IEhZUEVSTElOSyBuYW1 lPUxJTktCRUdJTnwyMT PaRqmzqILCLCU1JTwrc FrwnXh4v3vgnASjh3a0 AJrtBXG5vFcIf6moyPF aTOslUyyjwHQbmkF5AJ hBJRNZZWaNAgNgMK1fB DeBGquKPvH4HiRfYYP6 CJkAL5MOmIQ2Qxd9YDw 8fXtcZmxkcnNsdCBcJz OIhC7zjQaraX1obRGfC 2hcZnMyMCANClxlcGlj IgJlmEJcRcEaeyN4ZFV gdEIwNLN7UR9qXWYrdb uoJQYfAUQjKAK2YCcyr J19oVBqXDGhYDIxvDBc fVxwbGFpbiANClxzbC0 pHyUvu1vmlRr4ZCKEYu xzvVKaqgdqylA8TRBpo 4socObfm6KcwZYlON4h yQqodQ6xCzSlYbHIBx1 = Disclaimer (test code = [id number] 9844) gQCWwPOCaw3chSYSpsW FuZzEwMzNcZnRuYmpcd TEkHPQnOmEcc9roo990 dZImb3daZEMfRqD0hIT oMLDpmNRyW182AKInQJ drt4kuy4ZlSBHktLBpu 4Q9SJKVtggxvBm0aXrq E11jn5S7CielZ8skXNS vMULqC0UxIU6hLMFiUt f7QVO4SVT1BIXwKJRrE 6FxXJ4eAOGdpPEeCVm9 b1ssnMitHOTfBCR8a1q bRDmvrbMbQB4hcw8beO w0x6daqyEzFAChWQQkz KTCVOTtG7TyzRgyMj2i iIs0gItlDvvmLWC9Nhy 4XO6bkj58pxn1pTwcEJ DuekyvSoE2IWcsRRGzi vgoAMe0OPjtVASolMI5 INQfkQMkL3MzMYDkJZ3 cril0MGK0IRddBCHmCs Q9IJUcqKIgVCRgzSotJ Pyvs723NQB8RuPuZE8r J2Grb4O9zF9adAHfXYX iiEAaQxTgUTHuui0dlG LwXTpom6DrVZX5yyW3m LNbgZYxRMLhNV55Rcsh k0HxAakgKXI9WUGbvtD lp5Kyw4ffKbVinrAeU6 zpI3LyQQMkQWXgJMWmP nRzcsTwz7Qbb8YjhLWf fXt7q1tsSHGoVYVhbBo on3yhSKI5IFNcV8R7aZ Sgy9zcXUrbYCTslFS8d kG2ZOZotFLcK3UbmE8m XNAtTT8crcz5m2odHUM 1WWwnZVDhYeY4ysJ7HF BcaGVhZGVyeTcyMFxmb 109MYI0LuUnRUMzu9Gd M3NzqHssL18dwTzoJ83 mUHYuxCajzQ1fnZxnqO 5cZjBcZnMyNFxxbFxwb AKirrdhIDcgrsI2GDpc mylqRRQvTWtgB1jaIhM cHTWdzCxaTGkpk4PaBS IsNNPtIazegaX4AJUNi 24uESHxf1FnPTHplY9m jWFxNEansyLtuPN0HBy hdmUgYmVlbiBkZXZlbG 4vRPIeYN3tJVMqtjJgo h7pqeFeGJUuEIRlS8If cmlzdGljcyBkZXRlcm1 xwxGzGTW1WIMPQV0PZE WmBPQme63wWWCtsOzzi C2mlHIfueOtIPVqw3Kj iP1iaZBNGJIpY7loIO8 ySZwcb4HxhNQyiKVquJ I0WPJqa0LhIaGxheRyy KGecOCwN0AjhLdcT7cc OLEcZRTrdaLohBWlp0G rMVItfJM4rDOgYX5ICk YOq70bQQHkSBLGroVlB BEahGitmOL9ehG1cR3s LiBJZiBhcHBsaWNhYmx dQFIdw149od1nfcH7OZ GwLTOuyevaf7BbADDxY AKvfJ71TAQcCWWpqs2s vmeyqNWcplEwU3Fxmlf 3aB5iMICyUOqhYBZrPU ZzMjJcbGFuZzEwMzNca GljaFxmMVxkYmNoXGYx UGeqB2ghQnCcEpYpZta wYXJ9 [facility] [place]Zak Price2022-04-21 18:04:34 Test Item Value Reference Interpretation [...] for thesemodifi cations were determined by [employer].If samp le result is greater than 50 0 pg/mL, physician may o rder atiter of the sample. Please contact [employer] if you wouldlike t o order a retest of this sample to obtain an actua l value.Samples a re held for 1 week after in itial testing date. Perf ormed At:[facility] [id number] MIMI monaco [address]Fbedegmvsb Director: Andi Taylor Ph.D ., BCLD (ABB)CLIA#: [id number] e: [Automated message] The sy stem which generated this result transmitted ref erence range: <=80. Th e reference range was not u sed to interpret this result as normal/abnormal . Lab Interpretation Abnormal (test code = 08857-1) [facility] [place]Zak Price2022-04-21 18:04:34 Test Item Value Reference Interpretation [...] for thesemodifi cations were determined by [employer].If samp le result is greater than 50 0 pg/mL, physician may o rder atiter of the sample. Please contact [employer] if you wouldlike t o order a retest of this sample to obtain an actua l value.Samples a re held for 1 week after in itial testing date. Perf ormed At:[facility] [id number] [address] [place] [address]Lfyulaxglx Director: Andi Taylor Ph.D ., BCLD (ABB)CLIA#: [id number] e: Lab Interpretation Abnormal (test code = 31272-0) [facility] SandyFungyasir, [id number] 18:04:34 Test Item Value Reference Interpretation Comments [...] for thesemodifi cations were determined by [employer].If samp le result is greater than 50 0 pg/mL, physician may o rder atiter of the sample. Please contact [employer] if you wouldlike t o order a retest of this sample to obtain an actua l value.Samples a re held for 1 week after in itial testing date. Perf ormed At:[facility] nvmr[address] [facility] MIMI mon[place] [address]Femwuexohs Director: Andi Taylor Ph.D ., BCLFallon (ABB)CLIA#: [id number] e: Lab Interpretation Abnormal (test code = 79874-3) [facility] [place] SandyDee, [id number] 18:04:34 Test Item Value Reference Interpretation Comments [...] for thesemodifi cations were determined by [employer].If samp le result is greater than 50 0 pg/mL, physician may o rder atiter of the sample. Please contact [employer] if you wouldlike t o order a retest of this sample to obtain an actua l value.Samples a re held for 1 week after in itial testing date. Perf ormed At:[facility] vkqz55585 [address] [facility] baker [address]Fjvcpcyrbz Director: Andi Taylor Ph.D ., BCLD (ABB)CLIA#: [id number] e: Lab Interpretation Abnormal (test code = 97173-0) [facility] [place]Dee, [id number] 18:04:34 Test Item Value Reference Interpretation Comments [...] for thesemodifi cations were determined by [employer].If samp le result is greater than 50 0 pg/mL, physician may o rder atiter of the sample. Please contact [employer] if you wouldlike t o order a retest of this sample to obtain an actua l value.Samples a re held for 1 week after in itial testing date. Perf ormed At:[facility] blih90511 [address] [place] [address]Cnaaohizhr Director: Andi Taylor Ph.D ., BCLD (ABB)CLIA#: [id number] e: Lab Interpretation Abnormal (test code = 67702-4) [facility] [place]Dee, Khjof7633-35-83 18:04:34 Test Item Value Reference Interpretation Comments [...] for thesemodifi cations were determined by [employer].If samp le result is greater than 50 0 pg/mL, physician may o rder atiter of the sample. Please contact [employer] if you wouldlike t o order a retest of this sample to obtain an actua l value.Samples a re held for 1 week after in itial testing date. Perf ormed At:[facility] rvld85210 [address] [address]Pqxpddaofs Director: Andi Taylor Ph.D ., BCLD (ABB)CLIA#: [id number] e: Lab Interpretation Abnormal (test code = 72014-2) [facility] [place]Dee, Zqspk9078-01-10 18:04:34 Test Item Value Reference Interpretation Comments [...] for thesemodifi cations were determined by [employer].If samp le result is greater than 50 0 pg/mL, physician may o rder atiter of the sample. Please contact [employer] if you wouldlike t o order a retest of this sample to obtain an actua l value.Samples a re held for 1 week after in itial testing date. Perf ormed At:[facility] vdkk[address] [place], [place] [address]Uhspyhzicm Director: Andi Taylor Ph.D ., YUSEF (MEETA)ORVILLEIA#: [id number] e: Lab Interpretation Abnormal (test code = 60773-2) [facility] Path Review 2021-10-18 14:39:17RMP PRReviewed and Electronically signed by Pathologist:Mary Beth Parikh MD, PhD #[id number] [facility] [id number] 14:39:17RMP PRReviewed and Electronically signed by Pathologist:Mary Beth Parikh MD, PhD #[id number] [facility] Path Iahjgc6509-08-71 14:39:17RMP PRReviewed and Electronically signed by Pathologist:Mary Beth Parikh MD, PhD #[id number] [facility]Un[facility] HospitalRes[facility] PCR Panel Path Brltwc1723-54-76 14:39:17RMP PRReviewed and Electronically signed by Pathologist:Mary Beth Parikh MD, PhD #[id number] [facility] Path Review 2021-10-18 14:39:17RMP PRReviewed and Electronically signed by Pathologist:Mary Beth Parikh MD, PhD #[id number] [facility] Path Aqlibu6470-82-23 14:39:17RMP PRReviewed and Electronically signed by Pathologist:Mary Beth Parikh MD, PhD #[id number] [facility] Path [id number] 14:39:17RMP PRReviewed and Electronically signed by Pathologist:Mary Beth Parikh MD, PhD #[id number] [facility], FIREWALL ENGINEER [id number] 14:29:47 Test Item Value Reference Range Interpretation [...] 6203) Lab Interpretation (test code = Abnormal 52557-1) [facility] [place]Respiratory PCR Panel, FIREWALL ENGINEER Swab 2021-10-18 14:29:47 Test Item Value Reference [...] 6203) Lab Interpretation (test code = Abnormal 25628-6) [facility] [place]Respiratory PCR Panel, FIREWALL ENGINEER Swab 2021-10-18 14:29:47 Test Item Value Reference [...] 6203) Lab Interpretation (test code = Abnormal 81156-8) [facility], FIREWALL ENGINEER Swab 2021-10-18 14:29:47 Test Item Value Reference [...] 6203) Lab Interpretation (test code = Abnormal 25375-1) [facility], FIREWALL ENGINEER Swab 2021-10-18 14:29:47 Test Item Value Reference [...] 6203) Lab Interpretation (test code = Abnormal 85868-5) [facility] [place]Respiratory PCR Panel, FIREWALL ENGINEER Swab 2021-10-18 14:29:47 Test Item Value Reference [...] 6203) Lab Interpretation (test code = Abnormal 91385-0) [facility], FIREWALL ENGINEER Swab 2021-10-18 14:29:47 Test Item Value Reference [...] Detected Not Detected 5619) Influenza A H1 2008 (test code = Not Detected Not Detected [...] 6203) Lab Interpretation (test code = Abnormal 89184-9) [facility] [id number] 11:58:24 Test Item Value Reference Interpretation Comments Range POC Glucose (test 196 mg/dL 70-99 H RN Notifie dCapillary code = 30214-0) blood sample s, e.g. obtained by fingerstick, [...] Capillary code = 9554) Performing Lab (test [facility] code = 20249) [facility] MD Marianela gustafson Clinical Lab, [address] [place] [address]; Mass Spectrometry Specialist: Aletha Arciniega MD Lab Interpretation Abnormal (test code = 75363-3) [facility] [id number] 11:58:24 Test Item Value Reference Interpretation Comments Range POC Glucose (test 196 mg/dL 70-99 H RN Notifie dCapillary code = 06987-5) blood sample s, e.g. obtained by fingerstick, [...] Capillary code = 9554) Performing Lab (test [facility] code = 27340) [facility] MD Marianela gustafson Clinical Lab, [address] [place] [address] 30; Mass Spectrometry Specialist: Aletha Arciniega MD Lab Interpretation Abnormal (test code = 20452-6) [facility] [id number] 11:58:24 Test Item Value Reference Interpretation Comments Range POC Glucose (test 196 mg/dL 70-99 H RN Notifie dCapillary code = 34593-5) blood sample s, e.g. obtained by fingerstick, [...] Capillary code = 9554) Performing Lab (test [facility] code = 51727) [facility] MD Marianela gustafson Clinical Lab, [address] [place] [address]; Mass Spectrometry Specialist: Aletha Arciniega MD Lab Interpretation Abnormal (test code = 20858-6) [facility] [id number] 11:58:24 Test Item Value Reference Interpretation Comments Range POC Glucose (test 196 mg/dL 70-99 H RN Notifie dCapillary code = 87428-4) blood sample s, e.g. obtained by fingerstick, [...] Capillary code = 9554) Performing Lab (test [facility] code = 51686) [facility] MD Marianela gustafson Clinical Lab, [address] [place] [address]; Mass Spectrometry Specialist: Aletha Arciniega MD Lab Interpretation Abnormal (test code = 54914-8) [facility] [id number] 11:58:24 Test Item Value Reference Interpretation Comments Range POC Glucose (test 196 mg/dL 70-99 H RN Notifie dCapillary code = 13794-0) blood sample s, e.g. obtained by fingerstick, [...] Capillary code = 9554) Performing Lab (test [facility] code = 93507) [facility] Marianela gustafson Clinical Lab, [address] [place] [address] 30; Mass Spectrometry Specialist: Aletha Arciniega MD Lab Interpretation Abnormal (test code = 37599-0) [facility] [id number] 11:58:24 Test Item Value Reference Interpretation Comments Range POC Glucose (test 196 mg/dL 70-99 H RN Notifie dCapillary code = 85041-4) blood sample s, e.g. obtained by fingerstick, [...] Capillary code = 9554) Performing Lab (test [facility] code = 27091) [facility] Marianela gustafson Clinical Lab, [address] [place] [address]; Mass Spectrometry Specialist: Aletha Arciniega MD Lab Interpretation Abnormal (test code = 79124-3) [facility] [id number] 11:58:24 Test Item Value Reference Interpretation Comments Range POC Glucose (test 196 mg/dL 70-99 H RN Notifie dCapillary code = 08646-1) blood sample s, e.g. obtained by fingerstick, [...] Capillary code = 9554) Performing Lab (test [facility] code = 50922[facility] MD Marianela gustafson Clinical Lab, [address] [facility] [place] [place] [address]; Mass Spectrometry Specialist: Aletha Arciniega MD Lab Interpretation Abnormal (test code = 19917-0) [facility] Screening Okjtglh9477-92-12 18:35:38 Test Item Value Reference Range Interpretation Comments Final Report (test No Methicillin resistant code = 8488) Staphylococcus aureus isolated. Path Review (test The results have been code = 8492) reviewed and electronically signed by Pathologist:Mary Beth Parikh MD, PhD #[id number] [facility] Screening Ucjerep7614-02-60 18:35:38 Test Item Value Reference Range Interpretation Comments Final Report (test No Methicillin resistant code = 8488) Staphylococcus aureus isolated. Path Review (test The results have been code = 8492) reviewed and electronically signed by Pathologist:Mary Beth Parikh MD, PhD #[id number] [facility] Screening [id number] 18:35:38 Test Item Value Reference Range Interpretation Comments Final Report (test No Methicillin resistant code = 8488) Staphylococcus aureus isolated. Path Review (test The results have been code = 8492) reviewed and electronically signed by Pathologist:Mary Beth Parikh MD, PhD #[id number] [facility] Screening Bexodma5445-52-06 18:35:38 Test Item Value Reference Range Interpretation Comments Final Report (test No Methicillin resistant code = 8488) Staphylococcus aureus isolated. Path Review (test The results have been code = 8492) reviewed and electronically signed by Pathologist:Mary Beth Parikh MD, PhD #[id number] [facility] Screening [id number] 18:35:38 Test Item Value Reference Range Interpretation Comments Final Report (test No Methicillin resistant code = 8488) Staphylococcus aureus isolated. Path Review (test The results have been code = 8492) reviewed and electronically signed by Pathologist:Mary Beth Parikh MD, PhD #[id number] [facility] Screening [id number] 18:35:38 Test Item Value Reference Range Interpretation Comments Final Report (test No Methicillin resistant code = 8488) Staphylococcus aureus isolated. Path Review (test The results have been code = 8492) reviewed and electronically signed by Pathologist:Mary Beth Parikh MD, PhD #[id number] [facility] Tlxioet3560-19-35 18:35:38 Test Item Value Reference Range Interpretation Comments Final Report (test No Methicillin resistant code = 8488) Staphylococcus aureus isolated. Path Review (test The results have been code = 8492) reviewed and electronically signed by Pathologist:Mary Beth Parikh MD, PhD #[id number] [facility] CenterVan[facility] T[facility] Vancomycin trough on 10/17/21@10:30AM. Nurse please [...] is code = not availablefo r this 71394-9) sample. The donna e reported is the samplecollectio n date. Vanco Tr Dose 10/17/2021 Level, date, a nd time Date (test of previous dos e is code = not availablefo r this 08767-3) sample. The donna e reported is the samplecollectio n date. PAIGE (test Vancomycin trough on code = PAIGE) 10/17/21@10:30AM. Nurse please coordinate with lab to draw trough approximately 11 - 11.5hours after 10/16/21 evening vanco dose. Hold vancomycin doses if trough is greater than 20 and notify . Thanks! [facility] CenterVan[facility] Vancomycin trough on 10/17/21@10:30AM. Nurse please [...] is code = not availablefo r this 24294-8) sample. The donna e reported is the samplecollectio n date. Vanco Tr Dose 10/17/2021 Level, date, a nd time Date (test of previous dos e is code = not availablefo r this 78516-5) sample. The donna e reported is the samplecollectio n date. PAIGE (test Vancomycin trough on code = PAIGE) 10/17/21@10:30AM. Nurse please coordinate with lab to draw trough approximately 11 - 11.5hours after 10/16/21 evening vanco dose. Hold vancomycin doses if trough is greater than 20 and notify . Thanks! [facility] [place]Vancom[facility] Trough Vancomycin trough on 10/17/21@10:30AM. Nurse please [...] is code = not availablefo r this 15157-4) sample. The donna e reported is the samplecollectio n date. Vanco Tr Dose 10/17/2021 Level, date, a nd time Date (test of previous dos e is code = not availablefo r this 36561-2) sample. The donna e reported is the samplecollectio n date. PAIGE (test Vancomycin trough on code = PAIGE) 10/17/21@10:30AM. Nurse please coordinate with lab to draw trough approximately 11 - 11.5hours after 10/16/21 evening vanco dose. Hold vancomycin doses if trough is greater than 20 and notify MD. Thanks! [facility] Center[facility] Vancomycin trough on 10/17/21@10:30AM. Nurse please [...] is code = not availablefo r this 81637-5) sample. The donna e reported is the samplecollectio n date. Vanco Tr Dose 10/17/2021 Level, date, a nd time Date (test of previous dos e is code = not availablefo r this 04899-3) sample. The donna e reported is the samplecollectio n date. PAIGE (test Vancomycin trough on code = PAIGE) 10/17/21@10:30AM. Nurse please coordinate with lab to draw trough approximately 11 - 11.5hours after 10/16/21 evening vanco dose. Hold vancomycin doses if trough is greater than 20 and notify MD. Thanks! [facility] Center[facility] Vancomycin trough on 10/17/21@10:30AM. Nurse please [...] is code = not availablefo r this 30051-5) sample. The donna e reported is the samplecollectio n date. Vanco Tr Dose 10/17/2021 Level, date, a nd time Date (test of previous dos e is code = not availablefo r this 53406-7) sample. The donna e reported is the samplecollectio n date. PAIGE (test Vancomycin trough on code = PAIGE) 10/17/21@10:30AM. Nurse please coordinate with lab to draw trough approximately 11 - 11.5hours after 10/16/21 evening vanco dose. Hold vancomycin doses if trough is greater than 20 and notify . Thanks! [facility] [place]com[facility] Trough Vancomycin trough on 10/17/21@10:30AM. Nurse please [...] is code = not availablefo r this 89134-4) sample. The donna e reported is the samplecollectio n date. Vanco Tr Dose 10/17/2021 Level, date, a nd time Date (test of previous dos e is code = not availablefo r this 77381-9) sample. The donna e reported is the samplecollectio n date. PAIGE (test Vancomycin trough on code = PAIGE) 10/17/21@10:30AM. Nurse please coordinate with lab to draw trough approximately 11 - 11.5hours after 10/16/21 evening vanco dose. Hold vancomycin doses if trough is greater than 20 and notify MD. Thanks! [facility] Vancomycin trough on 10/17/21@10:30AM. Nurse please [...] is code = not availablefo r this 58593-8) sample. The donna e reported is the samplecollectio n date. Vanco Tr Dose 10/17/2021 Level, date, a nd time Date (test of previous dos e is code = not availablefo r this 18232-0) sample. The donna e reported is the samplecollectio n date. PAIGE (test Vancomycin trough on code = PAIGE) 10/17/21@10:30AM. Nurse please coordinate with lab to draw trough approximately 11 - 11.5hours after 10/16/21 evening vanco dose. Hold vancomycin doses if trough is greater than 20 and notify MD. Thanks! [facility] CenterLegionella Urine Antigen Path [id number] 15:56:29[facility] Urine Antigen Path ReviewReviewed and Electronically signed by Pathologist:Mary Beth Charles, PhD #[id number] [facility]Un[facility] HospitalLegionella Urine Antigen Path [id number] 15:56:29[facility] Urine Antigen Path ReviewReviewed and Electronically signed by Pathologist:Mary Beth Charles, PhD #[id number] [facility] Urine Antigen Path [id number] 15:56:29[facility] Urine Antigen Path ReviewReviewed and Electronically signed by Pathologist:Mary Beth Charles, PhD #[id number] [facility]Un[facility] HospitalLegionella Urine Antigen Path [id number] 15:56:29[facility] Urine Antigen Path ReviewReviewed and Electronically signed by Pathologist:Mary Beth Charles, PhD #[id number] [facility]Un[facility] HospitalLegionella Urine Antigen Path Dxuinf6065-07-04 15:56:29[facility] Urine Antigen Path ReviewReviewed and Electronically signed by Pathologist:Mary Beth Charles, PhD #[id number] [facility]Un[facility] HospitalLegionella Urine Antigen Path Pcozqb1795-07-36 15:56:29[facility] Urine Antigen Path ReviewReviewed and Electronically signed by Pathologist:Mary Beth Charles, PhD #[id number] [facility] ChildrenLeg[facility] Urine Antigen Path [id number] 15:56:29[facility] Urine Antigen Path ReviewReviewed and Electronically signed by Pathologist:Mary Beth Charles, PhD #[id number] [facility] HospitalProcalcitonin 2021-10-17 11:00:32Procalcitonin<0.04<=0.08 ng/mLUT [facility]Procal[facility]2022-[facility]-20 11:00:32Procalcitonin<0.04<=0.08 ng/mLUT [facility] CampusProcalcitonin2022-04-20 11:00:32 Procalcitonin<0.04<=0.08 ng/mLUT [facility] HospitalProcalcitonin2022-04-20 11:00:32 Procalcitonin<0.04<=0.08 ng/mLUT [facility] CznfmzVznxkbdhvkjip8087-07-01 11:00:32 Test Item Value Reference Range Interpretation Comments Procalcitonin (test code <0.04 See_Comment Pro calcitonin > 2.00 = 14496-1) ng/mL: Procalci tonin levels above 2. 00 [...] d ilution as it exceeds t he mellowing machine operator's recommended ching it. Caution should be exercised when interpreting nunez ch values and done in con junction with clinical c ontext. [Automated mess age] The system which ge nerated this result tra nsmitted reference range : <=0.08 ng/mL. The refe rence range was not u sed to interpret this result as normal/abnormal . [facility] 11:00:32 Test Item Value Reference Range Interpretation Comments Procalcitonin (test code <0.04 See_Comment Pro calcitonin > 2.00 = 65677-7) ng/mL: Procalci tonin levels above 2. 00 [...] d ilution as it exceeds t he mellowing machine operator's recommended ching it. Caution should be exercised when interpreting nunez ch values and done in con junction with clinical c ontext. [Automated mess age] The system which ge nerated this result tra nsmitted reference range : <=0.08 ng/mL. The refe rence range was not u sed to interpret this result as normal/abnormal . [facility] 11:00:32 Test Item Value Reference Range Interpretation Comments Procalcitonin (test code <0.04 See_Comment Pro calcitonin > 2.00 = 26438-1) ng/mL: Procalci tonin levels above 2. 00 [...] d ilution as it exceeds t he mellowing machine operator's recommended ching it. Caution should be exercised when interpreting nunez ch values and done in con junction with clinical c ontext. [Automated mess age] The system which ge nerated this result tra nsmitted reference range : <=0.08 ng/mL. The refe rence range was not u sed to interpret this result as normal/abnormal . [facility] CenterLegionella Urine Tkgpbqm6829-01-37 19:49:58 Test Item Value Reference Range Interpretation Comments Legionella Urine Antigen Negative Interpretation (test code = 1366032) [facility] CenterLegionella Urine Djckria1497-27-10 19:49:58 Test Item Value Reference Range Interpretation Comments Legionella Urine Antigen Negative Interpretation (test code = 9377331) [facility] CenterLegion[facility] Urine Jaqgdoq7383-28-08 19:49:58 Test Item Value Reference Range Interpretation Comments Legionella Urine Antigen Negative Interpretation (test code = 5685102) [facility] CenterLeg[facility] Urine Zdchvls9914-34-86 19:49:58 Test Item Value Reference Range Interpretation Comments Legionella Urine Antigen Negative Interpretation (test code = 5080164) [facility] Center[facility]rine Fyiwefh5342-68-67 19:49:58 Test Item Value Reference Range Interpretation Comments Legionella Urine Antigen Negative Interpretation (test code = 2040081) [facility] Center[facility] Urine Iftvopu0335-93-44 19:49:58 Test Item Value Reference Range Interpretation Comments Legionella Urine Antigen Negative Interpretation (test code = 5014623) [facility] Center[facility]rine Twiyapv3711-20-63 19:49:58 Test Item Value Reference Range Interpretation Comments Legionella Urine Antigen Negative Interpretation (test code = 9648464) [facility] Hbalnp3581-12-63 18:06:35Streptococcal Urine Antigen Path ReviewReviewed and Electronically signed by Pathologist:Mary Beth Parikh MD, PhD #[id number] [facility]UnCH[facility] Hospitaltreptococcal Urine Antigen Path Uwlfch9430-99-88 18:06:35Streptococcal Urine Antigen Path ReviewReviewed and Electronically signed by Pathologist:Mary Beth Parikh MD, PhD #[id number] [facility]Un[facility] Streptococcal Urine Antigen Path Iuetxw1861-08-45 18:06:35Streptococcal Urine Antigen Path ReviewReviewed and Electronically signed by Pathologist:Mary Beth Parikh MD, PhD #[id number] [facility]UnCH[facility] Hospitaltreptococcal Urine Antigen Path Rgqhfd6977-11-90 18:06:35 Streptococcal Urine Antigen Path ReviewReviewed and Electronically signed by Pathologist:Mary Beth Parikh MD, PhD #[id number] [facility]UnCH[facility] Hospitaltreptococcal Urine Antigen Path Review 2021-10-16 18:06:35Streptococcal Urine Antigen Path ReviewReviewed and Electronically signed by Pathologist:Mary Beth Parikh MD, PhD #[id number] [facility]UnCH[facility] Hospitaltreptococcal Urine Antigen Path Jewuyi8230-73-49 18:06:35Streptococcal Urine Antigen Path ReviewReviewed and Electronically signed by Pathologist:Mary Beth Parikh MD, PhD #[id number] [facility]Un[facility] Streptococcal Urine Antigen Path Umkybw6356-87-23 18:06:35Streptococcal Urine Antigen Path ReviewReviewed and Electronically signed by Pathologist:Mary Beth Parikh MD, PhD #[id number] [facility]UnCH[facility] Hospitaltreptococcus pneumoniae Urine Yhiwitg3415-46-32 16:43:46 Test Item Value Reference Range Interpretation Comments Streptococcal Urine Antigen Negative Negative Interpretation (test code = 46280335) [facility] pneumoniae Urine Johkhkh2517-56-35 16:43:46 Test Item Value Reference Range Interpretation Comments Streptococcal Urine Antigen Negative Negative Interpretation (test code = 87962469) [facility] pneumoniae Urine Qdywdfz2067-25-09 16:43:46 Test Item Value Reference Range Interpretation Comments Streptococcal Urine Antigen Negative Negative Interpretation (test code = 94994139) [facility] pneumoniae Urine Ljbyyxr2813-27-84 16:43:46 Test Item Value Reference Range Interpretation Comments Streptococcal Urine Antigen Negative Negative Interpretation (test code = 83437556) [facility]pt[facility] pneumoniae Urine Fvopche4106-49-17 16:43:46 Test Item Value Reference Range Interpretation Comments Streptococcal Urine Antigen Negative Negative Interpretation (test code = 45774130) [facility] pneumoniae Urine Qmkvrhx6101-97-42 16:43:46 Test Item Value Reference Range Interpretation Comments Streptococcal Urine Antigen Negative Negative Interpretation (test code = 68985864) [facility] pneumoniae Urine Eoxwqqt8805-45-76 16:43:46 Test Item Value Reference Range Interpretation Comments Streptococcal Urine Antigen Negative Negative Interpretation (test code = 56573374) [facility]2021-10-15 18:48:52 Test Item Value Reference Range Interpretation Comments Troponin T (test code = 23 ng/L See_Comment H < 19 ng/L Suggest 04601-6) retest at 3 to 6 hours later [...] res ults. [Automated mess age] The system [employer] generated this result transmitted ref erence range: <=18. Th e reference range was not used to int erpret this result as normal/abnormal . Lab Interpretation Abnormal (test code = 97385-5) [facility]2021-10-15 18:48:52 Test Item Value Reference Range Interpretation Comments Troponin T (test code = 23 ng/L <=18 H < 19 ng/L Suggest 80873-5) retest at 3 to 6 hours later [...] ults. Lab Interpretation Abnormal (test code = 49625-4) [facility]2021-10-15 18:48:52 Test Item Value Reference Range Interpretation Comments Troponin T (test code = 23 ng/L <=18 H < 19 ng/L Suggest 68113-7) retest at 3 to 6 hours later [...] ults. Lab Interpretation Abnormal (test code = 41324-4) [facility]2021-10-15 18:48:52 Test Item Value Reference Range Interpretation Comments Troponin T (test code = 23 ng/L <=18 H < 19 ng/L Suggest 03326-7) retest at 3 to 6 hours later [...] ults. Lab Interpretation Abnormal (test code = 56549-7) [facility]2021-10-15 18:48:52 Test Item Value Reference Range Interpretation Comments Troponin T (test code = 23 ng/L See_Comment H < 19 ng/L Suggest 85510-3) retest at 3 to 6 hours later [...] res ults. [Automated mess age] The system [employer] generated this result transmitted ref erence range: <=18. Th e reference range was not used to int erpret this result as normal/abnormal . Lab Interpretation Abnormal (test code = 00145-6) [facility]2021-10-15 18:48:52 Test Item Value Reference Range Interpretation Comments Troponin T (test code = 23 ng/L See_Comment H < 19 ng/L Suggest 68687-6) retest at 3 to 6 hours later to rule o ut myocardial inf arction >= 19 to <=52 n g/L Possible [...] res ults. [Automated mess age] The system [employer] generated this result transmitted ref erence range: <=18. Th e reference range was not used to int erpret this result as normal/abnormal . Lab Interpretation Abnormal (test code = 34729-7) [facility]2021-10-15 18:48:52 Test Item Value Reference Range Interpretation Comments Troponin T (test code = 23 ng/L See_Comment H < 19 ng/L Suggest 23602-7) retest at 3 to 6 hours later [...] res ults. [Automated mess age] The system [employer] generated this result transmitted ref erence range: <=18. Th e reference range was not used to int erpret this result as normal/abnormal . Lab Interpretation Abnormal (test code = 87787-6) [facility] CenterLDH20[facility] 16:36:02 Test Item Value Reference Range Interpretation Comments LDH (test code = 247 U/L 135-225 H Results gre ater than 31223-7) 1651 U/L may no t be reliable due to matrix effect w ith extended diluti on as it exceeds the mellowing machine operator's recommended ching it. Caution should be exercised when interpreting nunez ch values and done in conjunction [facility] clinical [employer] t. Lab Interpretation (test Abnormal code = 43552-7) [facility] CenterLDH[facility] 16:36:02 Test Item Value Reference Range Interpretation Comments LDH (test code = 247 U/L 135-225 H Results gre ater than 52769-3) 1651 U/L may no t be reliable due to matrix effect w ith extended diluti on as it exceeds the mellowing machine operator's recommended ching it. Caution should be exercised when interpreting nunez ch values and done in conjunction [facility] clinical [employer] t. Lab Interpretation (test Abnormal code = 76868-2) [facility]LDH[facility] 16:36:02 Test Item Value Reference Range Interpretation Comments LDH (test code = 247 U/L 135-225 H Results gre ater than 42992-0) 1651 U/L may no t be reliable due to matrix effect w ith extended diluti on as it exceeds the mellowing machine operator's recommended ching it. Caution should be exercised when interpreting nunez ch values and done in conjunction [facility] clinical contex t. Lab Interpretation (test Abnormal code = 58213-6) [facility]LDH[facility] 16:36:02 Test Item Value Reference Range Interpretation Comments LDH (test code = 247 U/L 135-225 H Results gre ater than 32754-1) 1651 U/L may no t be reliable due to matrix effect w ith extended diluti on as it exceeds the mellowing machine operator's recommended ching it. Caution should be exercised when interpreting nunez ch values and done in conjunction [facility] clinical contex t. Lab Interpretation (test Abnormal code = 61347-6) [facility]LDH[facility] 16:36:02 Test Item Value Reference Range Interpretation Comments LDH (test code = 247 U/L 135-225 H Results gre ater than 69078-0) 1651 U/L may no t be reliable due to matrix effect w ith extended diluti on as it exceeds the mellowing machine operator's recommended ching it. Caution should be exercised when interpreting nunez ch values and done in conjunction [facility] clinical [employer] t. Lab Interpretation (test Abnormal code = 02966-3) [facility]LDH[facility] 16:36:02 Test Item Value Reference Range Interpretation Comments LDH (test code = 247 U/L 135-225 H Results gre ater than 79698-5) 1651 U/L may no t be reliable due to matrix effect w ith extended diluti on as it exceeds the mellowing machine operator's recommended ching it. Caution should be exercised when interpreting nunez ch values and done in conjunction [facility] clinical [employer] t. Lab Interpretation (test Abnormal code = 93469-2) [facility]LDH[facility] 16:36:02 Test Item Value Reference Range Interpretation Comments LDH (test code = 247 U/L 135-225 H Results gre ater than 76981-0) 1651 U/L may no t be reliable due to matrix effect w ith extended diluti on as it exceeds the mellowing machine operator's recommended ching it. Caution should be exercised when interpreting nunez ch values and done in conjunction [facility] clinical contex t. Lab Interpretation (test Abnormal code = 75189-5) [facility]NT[facility] B[facility] ([facility])2021-10-15 16:31:03 Test Item Value Reference Range Interpretation Comments NT ProBNP (test code = 137 pg/mL See_Comment H [Aut omated message] 34465-2) The system [employer] generated this result transmit lakhwinder reference range : <=125. The refe rence range was not u sed to interpret th is result as normal/abnormal . Lab Interpretation (test Abnormal code = 76212-9) [facility]2021-10-15 16:31:03 Test Item Value Reference Range Interpretation Comments NT ProBNP (test code = 67258-6) 137 pg/mL <=125 H Lab Interpretation (test code = Abnormal 94521-9) [facility]2021-10-15 16:31:03 Test Item Value Reference Range Interpretation Comments NT ProBNP (test code = 19530-6) 137 pg/mL <=125 H Lab Interpretation (test code = Abnormal 70751-8) [facility]2021-10-15 16:31:03 Test Item Value Reference Range Interpretation Comments NT ProBNP (test code = 39294-4) 137 pg/mL <=125 H Lab Interpretation (test code = Abnormal 05886-5) [facility]2021-10-15 16:31:03 Test Item Value Reference Range Interpretation Comments NT ProBNP (test code = 137 pg/mL See_Comment H [Aut omated message] 99324-4) The system [employer] generated this result transmit lakhwinder reference range : <=125. The refe rence range was not u sed to interpret th is result as normal/abnormal . Lab Interpretation (test Abnormal code = 51681-8) [facility]2021-10-15 16:31:03 Test Item Value Reference Range Interpretation Comments NT ProBNP (test code = 137 pg/mL See_Comment H [Aut omated message] 88012-6) The system [employer] generated this result transmit lakhwinder reference range : <=125. The refe rence range was not u sed to interpret th is result as normal/abnormal . Lab Interpretation (test Abnormal code = 27397-0) [facility]2021-10-15 16:31:03 Test Item Value Reference Range Interpretation Comments NT ProBNP (test code = 137 pg/mL See_Comment H [Aut omated message] 74543-0) The system [employer] generated this result transmit lakhwinder reference range : <=125. The refe rence range was not u sed to interpret th is result as normal/abnormal . Lab Interpretation (test Abnormal code = 18539-7) [facility] CenterCreatine Ktswzf1313-09-03 16:31:01 Test Item Value Reference Range Interpretation Comments CK (test code = 2157-6) 48 U/L 39-308 [facility] CenterCreat[facility] Iilkcu1794-99-35 16:31:01 Test Item Value Reference Range Interpretation Comments CK (test code = 2157-6) 48 U/L 39-308 [facility] CenterCreat[facility] Fxgjlc2051-93-35 16:31:01 Test Item Value Reference Range Interpretation Comments CK (test code = 2157-6) 48 U/L 39-308 [facility] CenterCreat[facility] Audarv8807-03-13 16:31:01 Test Item Value Reference Range Interpretation Comments CK (test code = 2157-6) 48 U/L 39-308 [facility] CenterCreat[facility] Krsblf1288-59-07 16:31:01 Test Item Value Reference Range Interpretation Comments CK (test code = 2157-6) 48 U/L 39-308 [facility] CenterCreat[facility] Jbdxqb5447-10-75 16:31:01 Test Item Value Reference Range Interpretation Comments CK (test code = 2157-6) 48 U/L 39-308 [facility] CenterCreat[facility] Yaufhu9667-91-88 16:31:01 Test Item Value Reference Range Interpretation Comments CK (test code = 2157-6) 48 U/L 39-308 [facility] CenterCKMB2022-04-[facility] 16:31:00 Test Item Value Reference Range Interpretation Comments CK MB (test code = 2.2 ng/mL See_Comment [Automat ed message] The 40917-1) system which ge nerated this result tra nsmitted reference range : <=10.4. The reference r jose was not used to int erpret this result as normal/abnormal . [facility]2022-04-18 16:31:00 Test Item Value Reference Range Interpretation Comments CK MB (test code = 57120-1) 2.2 ng/mL <=10.4 [facility]2022-04-18 16:31:00 Test Item Value Reference Range Interpretation Comments CK MB (test code = 71366-3) 2.2 ng/mL <=10.4 [facility]2022-04-18 16:31:00 Test Item Value Reference Range Interpretation Comments CK MB (test code = 10637-6) 2.2 ng/mL <=10.4 [facility]2022-04-18 16:31:00 Test Item Value Reference Range Interpretation Comments CK MB (test code = 2.2 ng/mL See_Comment [Automat ed message] The 47179-0) system which ge nerated this result tra nsmitted reference range : <=10.4. The reference r jose was not used to int erpret this result as normal/abnormal . [facility] 16:[facility]00 Test Item Value Reference Range Interpretation Comments CK MB (test code = 2.2 ng/mL See_Comment [Automat ed message] The 23323-7) system which ge nerated this result tra nsmitted reference range : <=10.4. The reference r jose was not used to int erpret this result as normal/abnormal . [facility]2022-04-18 16:31:00 Test Item Value Reference Range Interpretation Comments CK MB (test code = 2.2 ng/mL See_Comment [Automat ed message] The 28616-2) system which ge nerated this result tra nsmitted reference range : <=10.4. The reference r jose was not used to int erpret this result as normal/abnormal . [facility] CenterCOVID-[facility] ([facility]-CoV-2)Afscdndowtpk-EZ4864-93-18 16:04:24 Test Item Value Reference Range Interpretation Comments COVID19 Not Detected Not Detected (SARS-CoV-2) (test code = 77334-8) COVID19 SARS Inpatient Indication (test Admission code = 35152) Covid 19 Comment See Note The kacy S ARS-CoV-2 (test code = [place] [address]) use on the xenia s [employer] [...] sheet for patie nts provided by the mellowing machine operator ([employer]) can be rev iewed at: https://www.[employer] .gov/m edia/326615/kunal nload. A fact sheet fo Health Care pro viders is provided by the mellowing machine operator ([employer]) and can be reviewed at: https://www.[employer] .gov/m edia/348674/kunal nload Results must be interpreted wit hin [...] high-comple xity tests. [facility] at [facility], CLIA Accreditation #[id number] and CAP Accreditation #[id number], verif ied the performance characteristics of this assay. Int ernal controls are us ed to monitor all sta ges of the test proces s. [facility] [place]OVID-19 (SARS-CoV-2)Fjmnmqdeodni-NU7289-39-18 16:04:24 Test Item Value Reference Range Interpretation Comments COVID19 Not Detected Not Detected (SARS-CoV-2) (test code = 19944-3) COVID19 SARS Inpatient Indication (test Admission code = 75621) Covid 19 Comment See Note The kacy S ARS-CoV-2 (test code = [place] [address]) use on the xenia s [employer] [...] sheet for patie nts provided by the mellowing machine operator ([employer], [facility]) can be rev iewed at: https://www.[employer] .gov/m edia/892467/kunal nload. A fact sheet fo r Health Care pro viders is provided by the mellowing machine operator ([employer]) and can be reviewed at: https://www.[employer] .gov/m edia/105635/kunal nload Results must be interpreted wit hin [...] high-comple xity tests. [facility] at [facility], CLIA Accreditation #[id number] and CAP Accreditation #[id number], verif ied the performance characteristics of this assay. Int ernal controls are us ed to monitor all sta ges of the test proces s. [facility] [place]OVID-19 (SARS-CoV-2)Ggilypodwzfa-US6699-02-18 16:04:24 Test Item Value Reference Range Interpretation Comments COVID19 Not Detected Not Detected (SARS-CoV-2) (test code = 98774-0) COVID19 SARS Inpatient Indication (test Admission code = 74730) Covid 19 Comment See Note The kacy S ARS-CoV-2 (test code = [place] [address]) use on the xenia s [employer] [...] sheet for patie nts provided by the mellowing machine operator ([employer], [facility]) can be rev iewed at: https://www.[employer] .gov/m edia/776538/kunal nload. A fact sheet fo Health Care pro viders is provided by the mellowing machine operator ([employer], [facility]) and can be reviewed at: https://www.[employer] .gov/m edia/614267/kunal nload Results must be interpreted wit hin [...] is assay has been authorized by t [facility] for use only un areli Emergency Use Authorization ( EUA) in laboratories that have been CLIA-certified to perform moderate-comple xity and high-comple xity tests. The [facility] at [facility], CLIA Accreditation #[id number] and CAP Accreditation #[id number], verif ied the performance characteristics of this assay. Int ernal controls are us ed to monitor all sta ges of the test proces s. [facility] [place]COVID-19 (SARS-CoV-2)Jfhbqfhqmugl-MT7323-54-18 16:04:24 Test Item Value Reference Range Interpretation Comments COVID19 Not Detected Not Detected (SARS-CoV-2) (test code = 33632-3) COVID19 SARS Inpatient Indication (test Admission code = 27941) Covid 19 Comment See Note The kacy S ARS-CoV-2 (test code = [place] [address]) use on the xenia s [employer] [...] sheet for patie nts provided by the mellowing machine operator ([employer], [facility]) can be rev iewed at: https://www.[employer] .gov/m edia/312351/kunal nload. A fact sheet fo Health Care pro viders is provided by the mellowing machine operator ([employer]) and can be reviewed at: https://www.[employer] .gov/[place] edia/951675/kunal nload Results must be interpreted wit hin [...] is assay has been authorized by t [facility] for use only un areli Emergency Use Authorization ( EUA) in laboratories that have been CLIA-certified to perform moderate-comple xity and high-comple xity tests. [facility] at [facility], CLIA Accreditation #[id number] and CAP Accreditation #[id number], verif ied the performance characteristics of this assay. Int ernal controls are us ed to monitor all sta ges of the test proces s. [facility] [place]OVID-19 (SARS-CoV-2)Rkuueiqodqgb-HW2728-49-18 16:04:24 Test Item Value Reference Range Interpretation Comments COVID19 Not Detected Not Detected (SARS-CoV-2) (test code = 62335-2) COVID19 SARS Inpatient Indication (test Admission code = 43136) Covid 19 Comment See Note The kacy S ARS-CoV-2 (test code = [place] [address]) use on the xenia s [employer] [...] sheet for patie nts provided by the mellowing machine operator ([employer], [facility]) can be rev iewed at: https://www.[employer] .gov/m edia/644237/kunal nload. A fact sheet fo r Health Care pro viders is provided by the mellowing machine operator ([employer]) and can be reviewed at: https://www.[employer] .gov/[place] edia/877406/kunal nload Results must be interpreted wit hin [...] high-comple xity tests. The [facility] at [facility], CLIA Accreditation #[id number] and CAP Accreditation #[id number], verif ied the performance characteristics of this assay. Int ernal controls are us ed to monitor all sta ges of the test proces s. [facility] [place]OVID-19 (SARS-CoV-2)Bmrgkhuforke-PB9208-18-18 16:04:24 Test Item Value Reference Range Interpretation Comments COVID19 Not Detected Not Detected (SARS-CoV-2) (test code = 58729-9) COVID19 SARS Inpatient Indication (test Admission code = 03033) Covid 19 Comment See Note The kacy S ARS-CoV-2 (test code = [place] [address]) use on the xenia s [employer] System [...] sheet for patie nts provided by the mellowing machine operator (Rezora) can be rev iewed at: https://www.fda .gov/m edia/261510/kunal nload. A fact sheet fo r Health Care pro viders is provided by the mellowing machine operator (Rezora) and can be reviewed at: https://www.[employer] .gov/m edia/059476/kunal nload Results must be interpreted wit hin [...] is assay has been authorized by t [facility] for use only un areli Emergency Use Authorization ( EUA) in laboratories that have been CLIA-certified to perform moderate-comple xity and high-comple xity tests. The Microbiology Laboratory at [facility], CLIA Accreditation #[id number] and CAP Accreditation #[id number], verif ied the performance characteristics of this assay. Int ernal controls are us ed to monitor all sta ges of the test proces s. [facility] [place] (SARS-CoV-2)Qyvdnupfyhyr-[id number] 16:04:24 Test Item Value Reference Range Interpretation Comments COVID19 Not Detected Not Detected (SARS-CoV-2) (test code = 53178-7) COVID19 SARS Inpatient Indication (test Admission code = 63853) Covid 19 Comment See Note The kacy S ARS-CoV-2 (test code = [place] [address]) use on the xenia s [employer] System [...] sheet for patie nts provided by the mellowing machine operator ([employer]OD[employer], [facility]) can be rev iewed at: https://www.fda .gov/m edia/602913/kunal nload. A fact sheet fo r Health Care pro viders is provided by the mellowing machine operator (Rezora) and can be reviewed at: https://www.fda .gov/m edia/807700/kunal nload Results must be interpreted wit hin [...] high-comple xity tests. The Microbiology [facility] at [facility], CLIA Accreditation #[id number] and CAP Accreditation #[id number], verif ied the performance characteristics of this assay. Int ernal controls are us ed to monitor all sta ges of the test proces s. [facility] Test Item Value Reference Range Interpretation Comments aPTT (test code = 29.9 See_Comment [Automate d message] The 24060-3) system which ge nerated this result transmit lakhwinder reference range : 24.7 - 36.8 second(s). The reference range was not used to interpr et this result as paras l/abnormal. [facility] 15:47:24 Test Item Value Reference Range Interpretation Comments aPTT (test code = 29.9 See_Comment [Automate d message] The 87806-2) system which ge nerated this result transmit lakhwinder reference range : 24.7 - 36.8 second(s). The reference range was not used to interpr et this result as paras l/abnormal. [facility] Test Item Value Reference Range Interpretation Comments aPTT (test code = 29.9 See_Comment [Automate d message] The [address] [place] [address]) system which ge nerated this result transmit lakhwinder reference range : 24.7 - 36.8 second(s). The reference range was not used to interpr et this result as paras l/abnormal. [facility] 15:47:24 Test Item Value Reference Range Interpretation Comments aPTT (test code = 29.9 See_Comment [Automate d message] The [address] [place] [address]) system which ge nerated this result transmit lakhwinder reference range : 24.7 - 36.8 second(s). The reference range was not used to interpr et this result as paras l/abnormal. [facility] 15:47:24 Test Item Value Reference Range Interpretation Comments aPTT (test code = 29.9 See_Comment [Automate d message] The 84001-4) system which ge nerated this result transmit lakhwinder reference range : 24.7 - 36.8 second(s). The reference range was not used to interpr et this result as paras l/abnormal. [facility] 15:47:24 Test Item Value Reference Range Interpretation Comments aPTT (test code = 29.9 See_Comment [Automate d message] The 64480-4) system which ge nerated this result transmit lakhwinder reference range : 24.7 - 36.8 second(s). The reference range was not used to interpr et this result as paras l/abnormal. [facility] 15:47:24 Test Item Value Reference Range Interpretation Comments aPTT (test code = 29.9 See_Comment [Automate d message] The 83190-2) system which ge nerated this result transmit lakhwinder reference range : 24.7 - 36.8 second(s). The reference range was not used to interpr et this result as paras l/abnormal. [facility] with [id number] 15:47:23 Test Item Value Reference Range Interpretation Comments PT (test code = 5902-2) 13.5 See_Comment [Au tomated message] The system [employer] generated this result transmitted ref erence range: 11.5 - 1 3.9 second(s). The reference range was not used to int erpret this result as normal/abnormal . INR (test code = 6301-6) 1.11 0.90-1.10 H Lab Interpretation (test Abnormal code = 46768-8) [facility] with [id number] 15:47:23 Test Item Value Reference Range Interpretation Comments PT (test code = 5902-2) 13.5 See_Comment [Au tomated message] The system [employer] generated this result transmitted ref erence range: 11.5 - 1 3.9 second(s). The reference range was not used to int erpret this result as normal/abnormal . INR (test code = 6301-6) 1.11 0.90-1.10 H Lab Interpretation (test Abnormal code = 03446-2) [facility] with [id number] 15:47:23 Test Item Value Reference Range Interpretation Comments PT (test code = 5902-2) 13.5 See_Comment [Au tomated message] The system [employer] generated this result transmitted ref erence range: 11.5 - 1 3.9 second(s). The reference range was not used to int erpret this result as normal/abnormal . INR (test code = 6301-6) 1.11 0.90-1.10 H Lab Interpretation (test Abnormal code = 51266-4) [facility] with [id number] 15:47:23 Test Item Value Reference Range Interpretation Comments PT (test code = 5902-2) 13.5 See_Comment [Au tomated message] The system [employer] generated this result transmitted ref erence range: 11.5 - 1 3.9 second(s). The reference range was not used to int erpret this result as normal/abnormal . INR (test code = 6301-6) 1.11 0.90-1.10 H Lab Interpretation (test Abnormal code = 37530-5) [facility] with [id number] 15:47:23 Test Item Value Reference Range Interpretation Comments PT (test code = 5902-2) 13.5 See_Comment [Au tomated message] The system [employer] generated this result transmitted ref erence range: 11.5 - 1 3.9 second(s). The reference range was not used to int erpret this result as normal/abnormal . INR (test code = 6301-6) 1.11 0.90-1.10 H Lab Interpretation (test Abnormal code = 57326-0) [facility] with [id number] 15:47:23 Test Item Value Reference Range Interpretation Comments PT (test code = 5902-2) 13.5 See_Comment [Au tomated message] The system [employer] generated this result transmitted ref erence range: 11.5 - 1 3.9 second(s). The reference range was not used to int erpret this result as normal/abnormal . INR (test code = 6301-6) 1.11 0.90-1.10 H Lab Interpretation (test Abnormal code = 36288-9) [facility] with [id number] 15:47:23 Test Item Value Reference Range Interpretation Comments PT (test code = 5902-2) 13.5 See_Comment [Au tomated message] The system [employer] generated this result transmitted ref erence range: 11.5 - 1 3.9 second(s). The reference range was not used to int erpret this result as normal/abnormal . INR (test code = 6301-6) 1.11 0.90-1.10 H Lab Interpretation (test Abnormal code = 35904-5) [facility] COVID-19, Nasopharyngeal [id number] 01:19:11 Test Item Value Reference Range Interpretation [...] Not Detected Not Detected (test code = 50526-4) Human Metapneumovirus Not Detected Not Detected (test [...] Detected Not Detected Parapertussis (test code = 75678) Bordetella pertussis Not Detected Not Detected (test [...] including SARS-CoV-2, from a single nasopharyngeal swab (SILVERER) specimen obtained from individuals suspected of respiratory [...] that may not be detected by an SILVERER specimen. Internal controls are used to monitor [...] and high-complexity tests. The [facility] at [facility], CLIA Accreditation #[id number] and CAP Accreditation #[id number], verified the performance characteristics of this assay. [facility] performs the assay using the [employer] System. Lab Interpretation Abnormal (test code = 86381-6) [facility] COVID-19, Nasopharyngeal [id number] 01:19:11 Test Item Value Reference Range Interpretation [...] Not Detected Not Detected (test code = 98725-7) Human Metapneumovirus Not Detected Not Detected (test [...] Detected Not Detected Parapertussis (test code = 80184) Bordetella pertussis Not Detected Not Detected (test [...] including SARS-CoV-2, from a single nasopharyngeal swab (SILVERER) specimen obtained from individuals suspected of respiratory [...] that may not be detected by an SILVERER specimen. Internal controls are used to monitor [...] and high-complexity tests. The [facility] at [facility], CLIA Accreditation #[id number] and CAP Accreditation #[id number], verified the performance characteristics of this assay. [facility] performs the assay using the [employer] System. Lab Interpretation Abnormal (test code = 59592-7) [facility] COVID-19, Nasopharyngeal [id number] 01:19:11 Test Item Value Reference Range Interpretation Comments Adenovirus (test code = Not Detected Not Detected 9937) Coronavirus 229E (test Not Detected Not Detected code = 5349) Coronavirus HKU1 (test Detected Not Detected A code = 5350) Coronavirus NL63 (test Not Detected Not Detected code = 5351) Coronavirus OC43 (test Not Detected Not Detected code = 5352) COVID19 (SARS-CoV-2) Not Detected Not Detected (test code = 36680-1) Human Metapneumovirus Not Detected Not Detected (test [...] Detected Not Detected Parapertussis (test code = 68866) Bordetella pertussis Not Detected Not Detected (test [...] including SARS-CoV-2, from a single nasopharyngeal swab (SILVERER) specimen obtained from individuals suspected of respiratory [...] that may not be detected by an SILVERER specimen. Internal controls are used to monitor [...] and high-complexity tests. The [facility] at [facility], CLIA Accreditation #[id number] and CAP Accreditation #[id number], verified the performance characteristics of this assay. [facility] performs the assay using the [employer] System. Lab Interpretation Abnormal (test code = 32503-8) [facility] COVID-19, Nasopharyngeal [id number] 01:19:11 Test Item Value Reference Range Interpretation [...] Not Detected Not Detected (test code = 87911-5) Human Metapneumovirus Not Detected Not Detected (test [...] Detected Not Detected Parapertussis (test code = 61970) Bordetella pertussis Not Detected Not Detected (test code = 4854) Chlamydiophila Not Detected Not Detected pneumoniae (test code = 5139) Mycoplasma pneumoniae Not Detected Not Detected (test code = 6203) PAIGE (test code = PAIGE) The [employer] RP2.1 is a real-time, nested multiplexed polymerase chain reaction test designed to simultaneously identify nucleic acids from 22 different viruses and bacteria associated with respiratory tract infection, including SARS-CoV-2, from a single nasopharyngeal swab (SILVERER) specimen obtained from individuals suspected of respiratory [...] that may not be detected by an SILVERER specimen. Internal controls are used to monitor [...] and high-complexity tests. The [facility] at [facility], CLIA Accreditation #[id number] and CAP Accreditation #[id number], verified the performance characteristics of this assay. [facility] performs the assay using the [employer] System. Lab Interpretation Abnormal (test code = 61895-2) [facility] COVID-19, Nasopharyngeal [id number] 01:19:11 Test Item Value Reference Range Interpretation Comments Adenovirus (test code = Not Detected Not Detected 1707) Coronavirus 229E (test Not Detected Not Detected code = 5349) Coronavirus HKU1 (test Detected Not Detected A code = 5350) Coronavirus NL63 (test Not Detected Not Detected code = 5351) Coronavirus OC43 (test Not Detected Not Detected code = 5352) COVID19 (SARS-CoV-2) Not Detected Not Detected (test code = 36392-5) Human Metapneumovirus Not Detected Not Detected (test [...] Detected Not Detected Parapertussis (test code = 74974) Bordetella pertussis Not Detected Not Detected (test [...] including SARS-CoV-2, from a single nasopharyngeal swab (SILVERER) specimen obtained from individuals suspected of respiratory [...] that may not be detected by an SILVERER specimen. Internal controls are used to monitor [...] and high-complexity tests. The [facility] at [facility], CLIA Accreditation #[id number] and CAP Accreditation #[id number], verified the performance characteristics of this assay. [facility] performs the assay using the [employer] System. Lab Interpretation Abnormal (test code = 18234-2) [facility] [id number] 13:32:30 Test Item Value Reference Range Interpretation Comments POC Crea (test 0.6 mg/dL 0.6-1.3 Medications, code = 33766-9) especially h ydroxyurea or supplements, such as [...] Normal eGF R >= 60 code = 41218-7) mL/min/1.73 m2 The eGFR is calcula lakhwinder [...] Normal eG FR >= 60 code = 09754-5) mL/min/1.73 m2 The eGFR is calcula lakhwinder [...] Yes (test code = 6672) Performing Lab [facility] (test code = [facility] [address]) Clinical Lab, [address] [place] [address]; Mass Spectrometry Specialist: Aletha Arciniega MD [facility] [id number] 13:32:30 Test Item Value Reference Range Interpretation Comments POC Crea (test 0.6 mg/dL 0.6-1.3 Medications, code = 23396-9) especially h ydroxyurea or supplements, such as [...] Normal eGF R >= 60 code = 11004-9) mL/min/1.73 m2 The eGFR is calcula lakhwinder [...] Normal eG FR >= 60 code = 88899-4) mL/min/1.73 m2 The eGFR is calcula lakhwinder [...] Yes (test code = 6672) Performing Lab [facility] (test code = [facility] [place] [address]) Clinical Lab, [address] [place] [address]; Mass Spectrometry Specialist: Aletha Arciniega MD [facility] [id number] 13:32:30 Test Item Value Reference Range Interpretation Comments POC Crea (test 0.6 mg/dL 0.6-1.3 Medications, code = 54945-5) especially h ydroxyurea or supplements, such as [...] Normal eGF R >= 60 code = 90425-5) mL/min/1.73 m2 The eGFR is calcula lakhwinder [...] Normal eG FR >= 60 code = 28713-4) mL/min/1.73 m2 The eGFR is calcula lakhwinder [...] = 6672) Performing Lab [facility] (test code = [facility] [place] [address]) Clinical Lab, [address], [place], [place] [address]; Mass Spectrometry Specialist: Aletha Arciniega MD [facility] [id number] 13:32:30 Test Item Value Reference Range Interpretation Comments POC Crea (test 0.6 mg/dL 0.6-1.3 Medications, code = 68623-4) especially h ydroxyurea or supplements, such as [...] Normal eGF R >= 60 code = 61001-4) mL/min/1.73 m2 The eGFR is calcula lakhwinder [...] GFR 15-295 Kidney failure <15 (or dialysis) [Aut omated message] The sy stem which generated this result transmit lakhwinder reference range : >=60 mL/min/1.73 m2. The reference range was not used to int erpret this result as normal/abnormal . POC eGFR-JCARLOS (test 105 See_Comment Normal eG FR >= 60 code = 03681-6) mL/min/1.73 m2 The eGFR is calcula lakhwinder [...] Yes (test code = 6672) Performing Lab [facility] (test code = [facility] [address]) Clinical Lab, [address] [facility], [place], [place] [address]; Mass Spectrometry Specialist: Aletha Arciniega MD [facility] [place]
--- NOTE | 2022-11-06 15:48 | RAD REPORT ---
EXAM DESCRIPTION: RAD - Chest Single View - 11/06/2022 3:34 pm CLINICAL HISTORY: DYSPNEA Chest pain. COMPARISON: Chest Single View dated 10/06/2022; Chest Single View dated 08/29/2022; Chest Single View da lakhwinder 04/23/2022; Chest Single View dated 04/01/2022 FINDINGS: Portable technique limits examination quality. Prominent emphysema is present. Ill-defined cavitary lesion in the right apex appear similar to prior study. Dustin R opacities in left lung base are also noted and similar to prior. The heart is normal i n size. No displaced fractures. IMPRESSION: Prominent emphysema. Overall, chest has a similar appearance to 10/06/2022 comparative raquel hoff.
[2022-11-06 15:54] LABS: Absolute Lymphocytes (CBC) 3.4 K/uL (0.7-4.9); Hematocrit 48.4 % (39.6-49.0); Lymphocytes % 32.5 % (15.3-44.8); MCV 95.3 fL (80-100); MPV 6.9 fL (7.6-11.3); RBC Red Blood Cell Count 5.08 M/uL (4.33-5.43)
[2022-11-06 16:16] LABS: Platelet Estimate ADEQ; White Blood Cell Scan OK (OK)
[2022-11-06 16:17] LABS: Anisocytosis 1+; Blood Morphology Comment NOTED (NOT SEEN)
[2022-11-06 16:22] LABS: Albumin 3.2 g/dL (3.4-5.0); Bilirubin Total 0.3 mg/dL (0.2-1.0); Protein, Total 6.8 g/dL (6.4-8.2); Troponin High Sensitivity 3.5 pg/mL (<58.9)
--- NOTE | 2022-11-06 17:18 | EDPHYS ---
Physician Documentation [facility] Name: Chato Moreno IV Age: 66 yrs Sex: Male : 1955 Arrival Date: 11/06/2022 Time: 15:05 Bed 5 Private MD: ED Physician Eddie Ortega HPI: 11/06 15:59 This 66 yrs old Male presents to ER via EMS with complaints of Shortness Of Breath. rt 15:59 . rt 15:59 Patient with history of COPD, lung cancer in remission presents to the ED with dyspnea rt for the past 4 days. Symptoms have worsened today, with pain on inspiration, resolved with treatment by EMS. Reports a productive cough. Denies other acute complaints at this time. Symptoms are moderate severity, no other aggravating or alleviating factors.. Historical: - Allergies: 15:15 No Known Allergies; kc6 - PMHx: 15:15 COPD; Emphysema; Lung Cancer; Pneumonia; kc6 - Immunization history:: Client reports receiving the 2nd dose of the Covid vaccine, Flu vaccine is up to date. - Social history:: Smoking status: Patient reports the use of cigarette tobacco products, denies chronic smoking, but will smoke occasionally. - Family history:: not pertinent. ROS: 15:59 Constitutional: Negative for fever, chills, and weight loss, Cardiovascular: Negative rt for chest pain, palpitations, and edema, Abdomen/GI: Negative for abdominal pain, nausea, vomiting, diarrhea, and constipation, MS/Extremity: Negative for injury and deformity, Skin: Negative for injury, rash, and discoloration, Neuro: Negative for headache, weakness, numbness, tingling, and seizure, Psych: Negative for depression, anxiety, suicide ideation, homicidal ideation, and hallucinations. 15:59 Respiratory: Positive for cough, shortness of breath. Exam: 15:59 Constitutional: This is a well developed, well nourished patient who is awake, alert, rt and in no acute distress. Chest/axilla: Normal chest wall appearance and motion. Nontender with no deformity. No lesions are appreciated. Cardiovascular: Regular rate and rhythm with a normal S1 and S2. No gallops, murmurs, or rubs. Normal PMI, no JVD. No pulse deficits. Skin: Warm, dry with normal turgor. Normal color with no rashes, no lesions, and no evidence of cellulitis. MS/ Extremity: Pulses equal, no cyanosis. Neurovascular intact. Full, normal range of motion. Neuro: Awake and alert, GCS 15, oriented to person, place, time, and situation. Cranial nerves II-XII grossly intact. Motor strength 5/5 in all extremities. Sensory grossly intact. Cerebellar exam normal. Normal gait. Psych: Awake, alert, with orientation to person, place and time. Behavior, mood, and affect are within normal limits. 15:59 Constitutional: The patient appears Thin, chronically ill-appearing 15:59 ECG was reviewed by the Attending Physician. 15:59 Respiratory: Wheezes heard on all lung hood, no respiratory distress. Vital Signs: 15:13 BP 134 / 90; Pulse 87; Resp 12 S; Temp 98.6(O); Pulse Ox 100% on 5 lpm NC; Weight 49 kg kc6 (M); Height 5 ft. 6 in. (R); Pain 0/10; 16:16 BP 106 / 73; Pulse 94; Resp 14 S; Pulse Ox 100% on 5 lpm NC; kc6 17:10 BP 113 / 80; Pulse 109; Resp 21 S; Pulse Ox 100% on 5 lpm NC; kc6 15:13 Body Mass Index 17.44 (49.00 kg, 167.64 cm) kc6 15:13 Pain Scale: Adult kc6 MDM: 15:14 Patient medically screened. rt 18:45 Differential diagnosis: Pneumonia, pneumothorax, COPD exacerbation, congestive heart rt failure. Data reviewed: vital signs, nurses notes, lab test result(s), EKG, radiologic studies. Consideration of Admission/Observation Escalation of care including admission/observation considered. I considered the following discharge prescriptions or medication management in the emergency department Medications were administered in the Emergency Department. See MAR. Independent interpretation of the following test(s) in the Emergency Department X-Ray: My interpretation is No consolidation seen on my interpretation of the chest x-ray images. Test considered but Not performed: CT: Low suspicion for PE, CT angiogram not indicated. Care significantly affected by the following chronic conditions: Chronic Obstructive Pulmonary Disease. Counseling: I had a detailed discussion with the patient and/or guardian regarding: the historical points, exam findings, and any diagnostic results supporting the discharge/admit diagnosis, lab results, radiology results, the need for outpatient follow up, to return to the emergency department if symptoms worsen or persist or if there are any questions or concerns that arise at home. Response to treatment: the patient's symptoms have markedly improved after treatment. ED course: No hypoxia, symptoms improving, lab work benign. No indications for admission to the hospital at this time.. 11/06 15:13 Order name: CBC with Diff; Complete Time: 16:32 rt 11/06 15:13 Order name: CMP; Complete Time: 16:35 rt 11/06 15:13 Order name: Troponin High Sensitivity; Complete Time: 16:35 rt 11/06 15:13 Order name: BNP; Complete Time: 16:35 rt 11/06 16:17 Order name: CBC Smear Scan; Complete Time: 16:32 EDMS 11/06 15:13 Order name: Chest Single View XRAY; Complete Time: 15:51 rt EC:59 Rate is 82 beats/min. Rhythm is irregularly irregular, A fib with No ectopy. Left axis rt deviation noted. QRS interval is normal. QT interval is normal. Administered Medications: 15:26 Drug: DuoNeb Nebulize (3:1) (2.5 mg - 0.5 mg) 3 ml Route: Nebulizer; 6 15:55 Follow up: Response: No adverse reaction [facility] 15:31 Drug: MethylPrednisoLONE IVP 125 mg Route: IVP; Site: right forearm; kc6 15:55 Follow up: Response: No adverse reaction kc Disposition Summary: 11/06/22 17:17 Discharge Ordered Location: Home rt Problem: an acute exacerbation rt Symptoms: have improved rt Condition: Stable rt Diagnosis - COPD/ Chronic obstructive pulmonary disease, unspecified rt Followup: rt - With: Private Physician - When: 2 - 3 days - Reason: Discharge Instructions: - Discharge Summary Sheet rt - Chronic Obstructive Pulmonary Disease rt Forms: - Medication Reconciliation Form rt - Thank You Letter rt - Antibiotic Education rt - Prescription Opioid Use rt Prescriptions: - albuterol sulfate 90 mcg/actuation Inhalation HFA Aerosol Inhaler - inhale 2 puff by INHALATION route every 2 hours as needed for bronchospasm; rt administer via ventilator; 1 Each; Refills: 0, Product Selection Permitted - Prednisone 20 mg Oral Tablet - take 2 tablets by ORAL route once daily for 5 days; 10 tablet; Refills: 0, rt Product Selection Permitted Signatures: Dispatcher [employer] Geeta Wahl, ELLA RN kc6 Eddie Ortega MD MD rt
--- NOTE | 2022-11-06 17:18 | ER ---
Nurse's Notes [facility] Name: Chato Moreno IV Age: 66 yrs Sex: Male : 1955 Arrival Date: 11/06/2022 Time: 15:05 Bed 5 Private MD: Diagnosis: COPD/ Chronic obstructive pulmonary disease, unspecified Presentation: 11/06 15:13 Chief complaint: EMS states: shortness of breath, worse today. pt has a hx of lung cx. kc6 BGl en route 168. 25mcg of fentanyl given en route. Coronavirus screen: Vaccine status: Patient reports receiving the 2nd dose of the covid vaccine. At this time, the client does not indicate any symptoms associated with coronavirus-19. Ebola Screen: No symptoms or risks identified at this time. Initial Sepsis Screen: Does the patient meet any 2 criteria? No. Patient's initial sepsis screen is negative. Does the patient have a suspected source of infection? No. Patient's initial sepsis screen is negative. Risk Assessment: Do you want to hurt yourself or someone else? Patient reports no desire to harm self or others. Onset of symptoms was November 06, 2022. 15:13 Method Of Arrival: EMS: [facility] kc6 15:13 Acuity: STEWART 3 kc6 Triage Assessment: 15:15 General: Appears in no apparent distress. comfortable, Behavior is calm, cooperative, kc6 appropriate for age. Pain: Denies pain. EENT: No signs and/or symptoms were reported regarding the EENT system. Neuro: Swift Agitation-Sedation Scale (RASS): 0 - Alert and Calm Level of Consciousness is awake, alert, obeys commands, Oriented to person, place, time, situation, Appropriate for age. Cardiovascular: Heart tones S1 S2 present Capillary refill < 3 seconds Chest pain is denied. Respiratory: Reports shortness of breath at rest on exertion Airway is patent Trachea midline Respiratory effort is even, labored, Respiratory pattern is symmetrical, Breath sounds are diminished bilaterally. Onset: The symptoms/episode began/occurred today, the patient has mild shortness of breath. GI: No signs and/or symptoms were reported involving the gastrointestinal system. : No signs and/or symptoms were reported regarding the genitourinary system. Derm: No signs and/or symptoms reported regarding the dermatologic system. Skin is intact, Skin is pink, warm \T\ dry. Musculoskeletal: No signs and/or symptoms reported regarding the musculoskeletal system. Circulation, motion, and sensation intact. Capillary refill < 3 seconds, Range of motion: intact in all extremities. Historical: - Allergies: 15:15 No Known Allergies; kc6 - PMHx: 15:15 COPD; Emphysema; Lung Cancer; Pneumonia; kc6 - Immunization history:: Client reports receiving the 2nd dose of the Covid vaccine, Flu vaccine is up to date. - Social history:: Smoking status: Patient reports the use of cigarette tobacco products, denies chronic smoking, but will smoke occasionally. - Family history:: not pertinent. Screenin:16 [facility] ED Fall Risk Assessment (Adult) History of falling in the last 3 months, kc6 including since admission No falls in past 3 months (0 pts) Confusion or Disorientation No (0 pts) Intoxicated or Sedated No (0 pts) Impaired Gait No (0 pts) Mobility Assist Device Used No (0 pt) Altered Elimination No (0 pt) Score/Fall Risk Level 0 - 2 = Low Risk Oriented to surroundings, Maintained a safe environment, Educated pt \T\ family on fall prevention, incl call for assistance when getting out of bed, Assessed \T\ reinforced patient's understanding of fall precautions, Hourly rounding (assess needs \T\ fall precautionary measures) done. Abuse screen: Denies threats or abuse. Denies injuries from another. Nutritional screening: No deficits noted. Tuberculosis screening: No symptoms or risk factors identified. Assessment: 15:16 Reassessment: please see triage assessment. kc6 16:16 Reassessment: Patient appears in no apparent distress at this time. No changes from 6 previously documented assessment. Patient and/or family updated on plan of care and expected duration. Pain level reassessed. Patient is alert, oriented x 3, equal unlabored respirations, skin warm/dry/pink. 17:10 Reassessment: Patient appears in no apparent distress at this time. No changes from kc6 previously documented assessment. Patient and/or family updated on plan of care and expected duration. Pain level reassessed. Patient is alert, oriented x 3, equal unlabored respirations, skin warm/dry/pink. 17:30 Reassessment: d/c pending ride home, called and is on the way. kc6 18:10 Reassessment: Patient appears in no apparent distress at this time. No changes from kc6 previously documented assessment. Patient and/or family updated on plan of care and expected duration. Pain level reassessed. Patient is alert, oriented x 3, equal unlabored respirations, skin warm/dry/pink. Vital Signs: 15:13 BP 134 / 90; Pulse 87; Resp 12 S; Temp 98.6(O); Pulse Ox 100% on 5 lpm NC; Weight 49 kg kc6 (M); Height 5 ft. 6 in. (R); Pain 0/10; 16:16 BP 106 / 73; Pulse 94; Resp 14 S; Pulse Ox 100% on 5 lpm NC; kc6 17:10 BP 113 / 80; Pulse 109; Resp 21 S; Pulse Ox 100% on 5 lpm NC; kc6 15:13 Body Mass Index 17.44 (49.00 kg, 167.64 cm) kc6 15:13 Pain Scale: Adult kc6 ED Course: 15:12 Patient arrived in ED. kc6 15:12 Eddie Ortega MD is Attending Physician. rt 15:15 Triage completed. kc6 15:15 Arm band placed on. kc6 15:16 Maintain EMS IV. Dressing intact. Good blood return noted. Site clean \T\ dry. Gauge \T\ sean 6 site: 20G RFA. 15:17 Geeta Lacey, RN is Primary Nurse. kc6 15:17 Patient has correct armband on for positive identification. Placed in gown. Bed in low kc6 position. Call light in reach. Side rails up X2. 15:36 Chest Single View XRAY In Process Unspecified. EDMS 18:56 No provider procedures requiring assistance completed. IV discontinued, intact, kc6 bleeding controlled, No redness/swelling at site. Pressure dressing applied. Administered Medications: 15:26 Drug: DuoNeb Nebulize (3:1) (2.5 mg - 0.5 mg) 3 ml Route: Nebulizer; kc6 15:55 Follow up: Response: No adverse reaction kc6 15:31 Drug: MethylPrednisoLONE IVP 125 mg Route: IVP; Site: right forearm; kc6 15:55 Follow up: Response: No adverse reaction kc6 Medication: 18:57 VIS not applicable for this client. kc6 Outcome: 17:17 Discharge ordered by . rt 18:56 Discharged to home via wheelchair, with family. kc6 18:56 Condition: improved 18:56 Discharge instructions given to patient, Instructed on discharge instructions, follow up and referral plans. medication usage, Demonstrated understanding of instructions, follow-up care, medications, Prescriptions given X 2. 18:57 Patient left the ED. kc6 Signatures: Dispatcher [employer] Geeta Wahl RN RN kc6 Eddie Ortega MD MD rt
[2022-11-06 19:06] VITALS: TEMP 98.6; O2SAT 100
[2022-11-06 19:09] VITALS: BP 113/80
== END 2022-11-06 18:57 | disposition home or self-care (01) ==
LOC: ER 15:05
DX: J44.9 Chronic obstructive pulmonary disease, unspecified (principal); Z85.118 Personal history of other malignant neoplasm of bronchus and lung; F17.210 Nicotine dependence, cigarettes, uncomplicated
CPT/HCPCS: 85025; 36415; 84484; 80053; 83880; 71045; J7613; J7644; J2930

== ENCOUNTER 2022-11-14 21:17 | Observation (INO) | payer OTHER ==
--- OUTSIDE RECORDS SUMMARY | 2022-11-14 21:21 | XMS REPORT | Clinical Summary ---
:1955 Author Organization [facility] Address [address] [place] [address] Care Team Providers Name Role Phone Carl Jones MD Unavailable Henrique Plasencia MD Primary Care Provider Kang Piedra MD Unavailable Mary Beth Hinson [facility] KILN BURNER Unavailable Unavailable Allergies No known active allergies [...] 09/02/2022 Active mg) by mouth twice daily. 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 Overview: Added automatically from request for rosa maria shah [id number] Family education about pain management 05/08/2021 History of radiation therapy 02/16/2021 Pressure-induced deep tissue damage of other site 02/2021 Overview: Site: Coccyx Sepsis 01/04/2021 Pulmonary embolism 11/17/2020 Stage 1 pressure ulcer of other site 11/14/2020 Overview: Left ear- stage 1-weft straightener related from nasal cannula Tube feeding diet [...] 08/10/2020 Decompensated COPD with acute exacerbation 07/30/2020 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 07/30/2020 Small [...] <Right> 09/13/2022 Ancillary Procedure Radiology Олег Clark ANP carcinoma, NO S of upper lobe, barbie g <Right> 09/13/2022 Hospital Encounter Lab Henrique Plasencia MD carcinoma, NOS of upper lobe, barbie g <Right> 09/13/2022 Orders Only Thoracic Medicine AmberОлег curtis cell Stella, ANP carcinoma, NO S of upper lobe, barbie g <Right> (Primar y Dx) 09/13/2022 Travel 09/05/2022 Orders Only Thoracic Medicine Amber Small cell Stella, ANP carcinoma, NO S of upper lobe, barbie g <Right> (Primar y Dx) 08/29/2022 Telephone Thoracic Medicine Liz Akhtar Shortn ess of Breath RN (/) 06/19/2022 Orders Only Thoracic Medicine Henrique Plasencia MD 06/07/2022 Follow-Up Thoracic Medicine Henrique Plasencia MD carcinoma, NOS of upper lobe, barbie g <Right> 06/07/2022 Hospital Encounter Lab Amber Олег benita l Stella, ANP carcinoma, NO S of upper lobe, barbie g <Right> 06/07/2022 Ancillary Procedure Radiology Amber, Олег ce ll Stella, ANP carcinoma, NO S of upper lobe, barbie g <Right> 06/07/2022 Orders Only Thoracic Medicine Los Clarkth, ANP 06/07/2022 Orders Only Thoracic Medicine Henrique Plasencia MD 06/07/2022 Travel 05/09/2022 Telephone Thoracic Surgery Inez Sanon, RN 05/03/2022 Orders Only Thoracic Medicine AmberОлег curtis cell Stella, ANP carcinoma, NO S of upper lobe, barbie g <Right> (Primar y Dx) 05/03/2022 Telephone Thoracic Medicine Zulema Cedillo RN 12/28/2021 Nurse Triage Constantine Willis NP 12/28/2021 Documentation Thoracic Medicine Hernique Plasencia MD 12/20/2021 Telephone Lolita Gonzales RN 12/11/2021 Telephone Radiation Oncology Bibiana Pedersen, ELLA 12/05/2021 Telephone Thoracic Medicine Kasie Mehta RN 12/01/2021 Nurse Triage Erin Olivares RN after 11/14/2021 Immunizations Name Administration Dates Next Due Bamlanivimab 07/29/2020 () Influenza Split High Dose Preservative 03/29/2020 Free IM Pneumococcal Polysaccharide 03/24/2022 Zoster Recombinant 03/29/2020 remdesivir 08/22/2020, 08/22/2020, 08/21/2020, 08/20/2020, 08/19/2020, 08/18/2020, 08/03/2020, 08/02/2020, 08/02/2020, 08/01/2020, 07/31/2020, 07/30/2020 Surgical History Surgery Date Site/Laterality Comments AK EGD BALLOON DILATION 09/29/2020 Esophagus/N/A Procedur e: UPPER ESOPHAGUS <30 MM DIAM GASTROINTE STINAL ENDOSCOPY WITH BALLOON DILATION OF ESOPHAGUS; Surgeon: Owen real MD; Location: MAIN E NDOSCOPY; Service: GASTROE NTEROLOGY AK EGD PERCUTANEOUS 09/29/2020 Abdomen/N/A Procedure: U PPER PLACEMENT GASTROSTOMY TUBE GASTR OINTESTINAL ENDOSCOPY WITH DIRECTED PLACEME NT OF PERCUTANEOUS (PE G) GASTROSTOMY TUBE; Surgeon: Desiree Leonard MD; Location: MAIN E NDOSCOPY; Service: GASTROE NTEROLOGY AK BRNCHSC W/BRNCL ALVEOLAR 10/23/2020 N/A Proc edure: FLEXIBLE LAVAGE BRONCHOSCOPY WIT H BRONCHIAL ALVEOLAR LAVAGE; Surgeon: Krys Brewer MD; Lo cation: MAIN PULM PROC; Servi ce: PULMONARY AK PERQ REPLACEMENT GTUBE 05/21/2021 N/A Proced ure: REPLACEMENT OF NOT REQ REVJ GSTRST TRC GASTROST RANDEE TUBE, PERCUTANEOUS, INCLUDES REMOVAL , WHEN PERFORMED, WITHO UT IMAGING OR ENDOSCOPIC DENNIS NCE; NOT REQUIRING REVISI ON OF GASTROSTOMY TRAC T; Surgeon: Neha Tobin MD ; Location: MAIN ENDOSCOPY; Service: GASTROENTEROLOGY AK EGD TRANSORAL BIOPSY 10/19/2021 Esophagus/N/A Procedur e: [...] 163 cm (5' 4.17") 06/07/2022 7:11 AM DEALERSHIP MANAGER Body Mass Index 18.03 06/07/2022 7:11 AM DEALERSHIP MANAGER Plan of Treatment Date Type Specialty Care Team Description 12/13/2022 Appointment Lab Nina Clark ANP [address] [place], [place] [address] (Wo rk) 12/13/2022 Appointment Radiology Nina Clark ANP [address] [place], [place] [address] (Wo rk) 12/13/2022 Follow-Up Thoracic Medicine John Plasencia MD [address] [place], [place] [address] (Wo rk) Health Maintenance Due [...] 9:54 Small cell Results for this AM DEALERSHIP MANAGER carcinoma, NOS of procedure are in upper lobe, lung the results <Right> section. FRACTIONATED BILIRUBIN Routine 06/07/2022 9:54 Small cell Re sults for this AM DEALERSHIP MANAGER carcinoma, NOS of procedure are in upper lobe, lung the results <Right> section. TOTAL PROTEIN Routine 06/07/2022 9:54 Small cell Results for this AM DEALERSHIP MANAGER carcinoma, NOS of procedure are in upper lobe, lung the results <Right> section. ASPARTATE Routine 06/07/2022 9:54 Small cell Results for this AMINOTRANSFERASE AM DEALERSHIP MANAGER carcinoma, NOS of proced ure are in upper lobe, lung the results <Right> section. ALANINE AMINOTRANSFERASE Routine 06/07/2022 9:54 Small cell Results for this AM DEALERSHIP MANAGER carcinoma, NOS of procedure are in upper lobe, lung the results <Right> section. ALKALINE PHOSPHATASE Routine 06/07/2022 9:54 Small cell Resu lts for this AM DEALERSHIP MANAGER carcinoma, NOS of procedure are in upper lobe, lung the results <Right> section. ALBUMIN LEVEL Routine 06/07/2022 9:54 Small cell Results for this AM DEALERSHIP MANAGER carcinoma, NOS of procedure are in upper lobe, lung the results <Right> section. CALCIUM LEVEL TOTAL Routine 06/07/2022 9:54 Small cell Resul ts for this AM DEALERSHIP MANAGER carcinoma, NOS of procedure are in upper lobe, lung the results <Right> section. .GLOMERULAR FILTRATION Routine 06/07/2022 9:54 Small cell Re sults for this RATE AM DEALERSHIP MANAGER carcinoma, NOS of procedure are in upper lobe, lung the results <Right> section. SERUM CREATININE Routine 06/07/2022 9:54 Small cell Results for this AM DEALERSHIP MANAGER carcinoma, NOS of procedure are in upper lobe, lung the results <Right> section. BLOOD UREA NITROGEN Routine 06/07/2022 9:54 Small cell Resul ts for this AM DEALERSHIP MANAGER carcinoma, NOS of procedure are in upper lobe, lung the results <Right> section. GLUCOSE LEVEL Routine 06/07/2022 9:54 Small cell Results for this AM DEALERSHIP MANAGER carcinoma, NOS of procedure are in upper lobe, lung the results <Right> section. MANUAL DIFFERENTIAL Routine 06/07/2022 9:54 Small cell Resul ts for this AM DEALERSHIP MANAGER carcinoma, NOS of procedure are in upper lobe, lung the results <Right> section. Results CBC Routine 06/07/2022 9:54 Small cell Results for this AM DEALERSHIP MANAGER carcinoma, NOS of procedure are in upper lobe, lung the results <Right> section. URIC ACID Routine 06/07/2022 9:54 Small cell Results for this AM DEALERSHIP MANAGER carcinoma, NOS of procedure are in upper lobe, lung the results <Right> section. THYROID STIMULATING Routine 06/07/2022 9:54 Small cell Resul ts for this HORMONE AM DEALERSHIP MANAGER carcinoma, NOS of procedure are in upper lobe, lung the results <Right> section. TOTAL T3 Routine 06/07/2022 9:54 Small cell Results for this AM DEALERSHIP MANAGER carcinoma, NOS of procedure are in upper lobe, lung the results <Right> section. MAGNESIUM LEVEL Routine 06/07/2022 9:54 Small cell Results f or this AM DEALERSHIP MANAGER carcinoma, NOS of procedure are in upper lobe, lung the results <Right> section. FREE THYROXINE Routine 06/07/2022 9:54 Small cell Results fo r this AM DEALERSHIP MANAGER carcinoma, NOS of procedure are in upper lobe, lung the results <Right> section. COMPREHENSIVE METABOLIC Routine 06/07/2022 9:54 Small cell PANEL AM DEALERSHIP MANAGER carcinoma, NOS of upper lobe, lung <Right> COMPLETE BLOOD COUNT W/ Routine 06/07/2022 9:54 Small cell DIFFERENTIAL AM DEALERSHIP MANAGER carcinoma, NOS of upper lobe, lung <Right> PETCT SUBSEQUENT Routine 06/07/2022 9:27 Small cell Results for this TREATMENT STRATEGY AM DEALERSHIP MANAGER carcinoma, NOS of proc edure are in upper lobe, lung the results <Right> section. after 11/14/[address] Chest with Contrast (09/13/2022 8:57 [...] 10/15/2021. 5. Multivessel coronary artery disease. Stella Amber ANP IMG CT ORDERABLES POC Creatinine (09/13/2022 8:38 AM CDT) P athologist Signature POC Crea 0.6 0.6 [...] Clean Dev Yes POC TELCOR Performing Lab [facility] POC TELCO R Comment: [facility], [address] [facility], [place] [address]; Lab Direct or: Karma Arciniega MD; Waived Point of Care Testing - Rosina Parikh MD Specimen Anatomical Collection Method Collection Time Receive d Time (Source) Location / / Volume Laterality Blood 09/13/2022 8:38 AM 3 8:38 CDT AM CDT Stella BERGMAN POCT ORDERABLES - DEVICE Performing Organization Address City/[facility]/ZIP [facility] Phon e Number POC TELCOR Unless otherwise noted, [place] [address] lab tests performed by: Division of Pathology and Laboratory Medicine [address] [place] [address] (ABNORMAL) .Serum Creatinine (09/13/2022 8:10 AM CDT)Only the most recent of2 resultswithin the time period is included. athologist Signature Creatinine 0.62 (L) 0.67 - 1.17 [facility] mg/dL Comment: Testing Performed at [facility], [address], [address], [place] [address] Specimen Anatomical Collection Method Collection Time Receive d Time (Source) Location / / Volume Laterality Blood 09/13/2022 8:10 AM 3 8:36 CDT AM CDT Narrative [facility] - 09/13/2022 9:14 AM CDT Schedule same day tests/clinic appt Henrique Plasencia MD LAB BLOOD ORDERABLES Performing Organization Address City/[facility]/ZIP Code Phon e Number [facility] [address] [facility] [place] [address] [address] (ABNORMAL) .CBC (09/13/2022 8:10 AM CDT)Only the most recent of2 resultswithin the time period is included. athologist Signature WBC 6.9 4.0 - 11.0 [facility] K/uL RBC 4.71 4.50 - 6.00 [facility] M/uL Hgb 14.5 14.0 - 18.0 [facility] gm/dL Comment: As part of CBC or as an individ ual orderable testing performed at [facility], [address] , [address], [place] [address] Hct 45.2 40.0 - 54.0 % [facility] Comment: As part of CBC or as an individ ual orderable testing performed at [facility], [address] , [address], [place] [address] MCV 96 82 - 98 fL [facility] MCH 30.8 27.0 - 31.0 pg [facility] MCHC 32.1 31.0 - 36.0 gm/dL [facility] RDW-SD 62.4 (H) 35.1 - 46.3 fL [facility] RDW-CV 17.9 (H) 12.0 - 15.5 % [facility] Platelet count 310 140 - 440 K/uL [facility] Comment: As part of CBC or as an individ ual orderable testing performed at [facility], [address] , [address], [place] [address] MPV 9.6 4.0 - 10.4 fL [facility] INRBC 0.0 <=0.0 % [facility] Comment: The INRBC (instrument NRBC) value reflec ts the enumeration of nucleated red blood cells contained i n a 200uL sample of whole blood analyzed by the instrumen t. This value may differ from the NRBC value reported in a manual differential, which is based on a 100 cell differentia l. As part of CBC testing performed at [facility] [address], [address], [place] [address] Specimen Anatomical Collection Method Collection Time Receive d Time (Source) Location / / Volume Laterality Blood 09/13/2022 8:10 AM 8:28 CDT AM CDT Narrative [facility] - 09/13/2022 8:32 AM CDT Schedule same day tests/clinic appt Henrique Plasencia MD LAB BLOOD ORDERABLES Performing Organization Address City/State/ZIP Code Phon e Number [address] [place] [address] [address] Glomerular Filtration Rate (09/13/2022 8:10 AM CDT)Only the most recent of2 resultswithin the time period is included. athologist Signature eGFR 105 >=60 [facility] mL/min/1.73 sq. m Comment: The eGFRcr is [...] fulfill criteria for CKD. Testing Performed at [facility], [address] [place] [address], [address], [place] [address] Specimen Anatomical Collection Method Collection Time Receive d Time (Source) Location / / Volume Laterality Blood 09/13/2022 8:10 AM 3 8:36 CDT AM CDT Narrative [facility] - 09/13/2022 9:14 AM CDT Schedule same day tests/clinic appt Henrique Plasencia MD LAB BLOOD ORDERABLES Performing Organization Address City/State/ZIP Code Phon e Number [address] [place] [address] [address] Fractionated Bilirubin (09/13/2022 8:10 AM CDT)Only the most recent of2 results within the time period is included. athologist Signature Bili Total <0.3 <=1.2 mg/dL [facility] Comment: Direct and indirect bilirubin will not b e reported when Total bilirubin result is <0.3 mg/dL Indocyanine Green (ICG) may cause falsel y elevated bilirubin results. Total and direct bilirubin must not be measured from samples containing indocyanine green. False elevation of total bilirubin can b e seen in patients with IgG concentrations above 28 g/L. Testing Performed at [facility], [address] [place] [address], [address], [place] [address] Specimen Anatomical Collection Method Collection Time Receive d Time (Source) Location / / Volume Laterality Blood 09/13/2022 8:10 AM 8:36 CDT AM CDT Narrative [facility] - 09/13/2022 9:14 AM CDT Schedule same day tests/clinic appt Henrique Plasencia MD LAB BLOOD ORDERABLES Performing Organization Address City/State/ZIP Code Phon e Number [address] [place] [address] [address] (ABNORMAL) Differential (09/13/2022 8:10 AM CDT)Only the most recent of2 results within the time period is included. athologist Signature Neutrophil % 48.8 42.0 - 66.0 [facility] % Comment: As part of Differential perform ed at [facility], [facility] [facility], [address], [place] [address] 0 Lymphocyte % 34.8 24.0 - 44.0 % [facility] Monocyte % 9.1 (H) 2.0 - 7.0 % [facility] Eosinophil % 6.6 (H) 1.0 - 4.0 % [facility] Basophil % 0.7 0.0 - 1.0 % [facility] IGRE % 0.0 0.0 - 0.4 % [facility] Comment: IGRE % count includes Metamyelocytes, My elocytes, and Promyelocytes. As part of Differential performed at [facility], [facility], [address], [place] [address] Neutrophil Abs 3.37 1.70 - 7.30 K/uL [facility] Lymphocyte Abs 2.41 1.00 - 4.80 K/uL [facility] Monocyte Abs 0.63 0.08 - 0.70 K/uL [facility] Eosinophil Abs 0.46 (H) 0.04 - 0.40 K/uL [facility] Basophil Abs 0.05 0.00 - 0.10 K/uL [facility] IG Abs 0.00 0.00 - 0.04 K/uL [facility] Specimen Anatomical Collection Method Collection Time Receive d Time (Source) Location / / Volume Laterality Blood 09/13/2022 8:10 AM 3 8:28 CDT AM CDT Narrative [facility] - 09/13/2022 8:32 AM CDT Schedule same day tests/clinic appt Henrique Plasencia MD LAB BLOOD ORDERABLES Performing Organization Address City/State/ZIP Code Phon e Number [facility] [address] [facility] [place] [address] [address] BUN (09/13/2022 8:10 AM CDT)Only the most recent of2 resultswithin the time period is included. P athologist Signature BUN 10 6 - 23 mg/dL [facility] Comment: Testing Performed at [facility], [address], [address], [place] [address] Specimen Anatomical Collection Method Collection Time Receive d Time (Source) Location / / Volume Laterality Blood 09/13/2022 8:10 AM 3 8:36 CDT AM CDT [facility] - 09/13/2022 9:14 AM CDT Schedule same day tests/clinic appt Henrique Plasencia MD LAB BLOOD ORDERABLES Performing Organization Address City/[facility] Phon e Number [facility] [address] [facility] [place] [address] [address] ALT (09/13/2022 8:10 AM CDT)Only the most recent of2 resultswithin the time period is included. P athologist Signature ALT 7 <=41 U/L [facility] Comment: Testing Performed at [facility], [address], [address], [place] [address] Specimen Anatomical Collection Method Collection Time Receive d Time (Source) Location / / Volume Laterality Blood 09/13/2022 8:10 AM 3 8:36 CDT AM CDT [facility] - 09/13/2022 9:14 AM CDT Schedule same day tests/clinic appt Henrique Plasencia MD LAB BLOOD ORDERABLES Performing Organization Address City/State/ZIP Code Phon e Number [facility] [address] [facility] [place] [address] [address] Aspartate Aminotransferase (09/13/2022 8:10 AM CDT)Only the most recent of2 resultswithin the time period is included. P athologist Signature AST 12 <=40 U/L [facility] Comment: Testing Performed at [facility] Lab Am [facility], [address], [address], [place] [address] Specimen Anatomical Collection Method Collection Time Receive d Time (Source) Location / / Volume Laterality Blood 09/13/2022 8:10 AM 3 8:36 CDT AM CDT Narrative [facility] - 09/13/2022 9:14 AM CDT Schedule same day tests/clinic appt Henrique Plasencia MD LAB BLOOD ORDERABLES Performing Organization Address City/[facility]/ZIP [facility] Phon e Number [facility] [address] [facility] [place] [address] [address] Total Protein (09/13/2022 8:10 AM CDT)Only the most recent of2 resultswithin the time period is included. athologist Signature Total Protein 7.2 6.4 - 8.3 [facility] g/dL Comment: Testing Performed at [facility] Lab Am [facility], [address], [address], [place] [address] Specimen Anatomical Collection Method Collection Time Receive d Time (Source) Location / / Volume Laterality Blood 09/13/2022 8:10 AM 3 8:36 CDT AM CDT Narrative [facility] - 09/13/2022 9:14 AM CDT Schedule same day tests/clinic appt Henrique Plasencia MD LAB BLOOD ORDERABLES Performing Organization Address City/State/ZIP [facility] Phon e Number [facility] [address] [facility] [place] [address] [address] Alkaline Phosphatase (09/13/2022 8:10 AM CDT)Only the most recent of2 results within the time period is included. athologist Signature Alk Phos 94 40 - 129 U/L [facility] Comment: Testing Performed at [facility] Lab Am [facility], [address] [place] [address], [address], [place] [address] Specimen Anatomical Collection Method Collection Time Receive d Time (Source) Location / / Volume Laterality Blood 09/13/2022 8:10 AM 3 8:36 CDT AM CDT Narrative [facility] - 09/13/2022 9:14 AM CDT Schedule same day tests/clinic appt Henrique Plasencia MD LAB BLOOD ORDERABLES Performing Organization Address City/State/ZIP Code Phon e Number [address] [place] [address] [address] (ABNORMAL) Glucose Level (09/13/2022 8:10 AM CDT)Only the most recent of2 resultswithin the time period is included. athologist Signature Glucose Level 102 (H) 70 - 99 [facility] mg/dL Comment: Effective 01/24/16, the glucose reference intervals have been updated based on [employer] guidelines (Standards of Medical Care in Diabetes 2016. Diabetes Care 2016; 39: S13-S22). Fasting blood glucose: Normal: 70-99 mg/dL Impaired fasting glucose (increased risk for diabetes or pre-diabetes): 100- 125 mg/dL Diabetes mellitus: >/=126 mg/dL Random blood glucose: Normal: 70-199 mg/dL Note: Random glucose >100 mg/dL is assoc iated with increased risk for diabetes Testing Performed at [facility] Lab [facility] [employer], [address] [place] [address], [address], [place] [address] Specimen Anatomical Collection Method Collection Time Receive d Time (Source) Location / / Volume Laterality Blood 09/13/2022 8:10 AM 3 8:36 CDT AM CDT [facility] - 09/13/2022 9:13 AM CDT Schedule same day tests/clinic appt Henrique Plasencia MD LAB BLOOD ORDERABLES Performing Organization Address City/State/ZIP [facility] Phon e Number [address] [place] [address] [address] Calcium Level (09/13/2022 8:10 AM CDT)Only the most recent of2 resultswithin the time period is included. athologist Signature Calcium Lvl 9.4 8.4 - 10.2 [facility] mg/dL Comment: Testing Performed at [facility] Lab [facility], [address], [address], [place] [address] Specimen Anatomical Collection Method Collection Time Receive d Time (Source) Location / / Volume Laterality Blood 09/13/2022 8:10 AM 3 8:36 CDT AM CDT Narrative [facility] - 09/13/2022 9:14 AM CDT Schedule same day tests/clinic appt Henrique Plasencia MD LAB BLOOD ORDERABLES Performing Organization Address City/[facility]/ZIP [facility] Phon e Number [facility] [address] [place] [address] [address] Albumin Level (09/13/2022 8:10 AM CDT)Only the most recent of2 resultswithin the time period is included. P athologist Signature Albumin Lvl 4.0 3.5 - 5.2 [facility] gm/dL Comment: Testing Performed at [facility] Lab Am [facility], [address], [address], [place] [address] Specimen Anatomical Collection Method Collection Time Receive d Time (Source) Location / / Volume Laterality Blood 09/13/2022 8:10 AM 3 8:36 CDT AM CDT Narrative [facility] - 09/13/2022 9:14 AM CDT Schedule same day tests/clinic appt Henrique Plasencia MD LAB BLOOD ORDERABLES Performing Organization Address [facility] Phon e Number [facility] [address] [place] [address] [address] Electrolyte Panel (09/13/2022 8:10 AM CDT)Only the most recent of2 resultswithin the time period is included. P athologist Signature Sodium Lvl 141 136 - 145 [facility] mEq/L Comment: Testing Performed at [facility], [address], [address], [place] [address] Potassium Lvl 3.9 3.5 - 5.1 mEq/L [facility] Comment: Testing Performed at [facility] SERVICES Lab Am bulatory Care [facility], [address], [address], [place] [address] Chloride 105 98 - 107 mEq/L [facility] Comment: Testing Performed at [facility] Lab Am bulatory Care Bldg, [address], [address], [place] [address] CO2 25 22 - 29 mEq/L [facility] Comment: Testing Performed at [facility] Lab Am bulatory Care Bldg, [address], [address], [place] [address] Anion Gap 11 4 - 14 mEq/L [facility] Comment: Testing Performed at [facility] Lab Am bulatory Care Bldg, [address], [address], [place] [address] Specimen Anatomical Collection Method Collection Time Receive d Time (Source) Location / / Volume Laterality Blood 09/13/2022 8:10 AM 3 8:36 CDT AM CDT Narrative [facility] - 09/13/2022 9:14 AM CDT Schedule same day tests/clinic appt Henrique Plasencia MD LAB BLOOD ORDERABLES Performing Organization Address City/[facility]/ZIP Code Phon e Number [facility] [address] [place] [address] [address] Uric Acid (06/07/2022 9:54 AM DEALERSHIP MANAGER) athologist Signature Uric Acid 5.3 3.4 - 7.0 [facility] mg/dL Comment: Testing Performed at [facility] Lab Am bulatory Care [facility], [address], [address], [place] [address] Specimen Anatomical Collection Method Collection Time Receive d Time (Source) Location / / Volume Laterality Blood 06/07/2022 9:54 AM 2 DEALERSHIP MANAGER 10:05 AM DEALERSHIP MANAGER Stella BERGMAN LAB BLOOD ORDERABLES Performing Organization Address City/State/ZIP Code Phon e Number [facility] [address] [place] [address] [address] T3 (06/07/2022 9:54 AM DEALERSHIP MANAGER) P athologist Signature T3 Total 153 80 - 200 [facility] ng/dL [facility] Specimen Anatomical Collection Method Collection Time Receive d Time (Source) Location / / Volume Laterality Blood 06/07/2022 9:54 AM 2 DEALERSHIP MANAGER 10:53 AM DEALERSHIP MANAGER Stella Clark ANP LAB BLOOD ORDERABLES Performing Organization Address City/[facility]/ZIP Code Phon e Number [facility] CANCER Unless otherwise noted, [place] [address] CENTER all lab tests performed by: Division of Pathology and Laboratory Medicine [address] [place] TSH (06/07/2022 9:54 AM DEALERSHIP MANAGER) athologist Signature TSH 0.65 0.27 - 4.20 [facility] mcunit/mL Comment: Note: New Methodology and Reference Ra nge change effective 10/16/2017 at 1400 Testing Performed at [facility] Lab Warp Tension Tester [facility], [address] [facility], [address], [place] [address] Specimen Anatomical Collection Method Collection Time Receive d Time (Source) Location / / Volume Laterality Blood 06/07/2022 9:54 AM 2 DEALERSHIP MANAGER 10:05 AM DEALERSHIP MANAGER Stella Clark ANP LAB BLOOD ORDERABLES Performing Organization Address [facility]/ZIP Code Phon e Number [facility] [address] [facility] [place] [address] [address] Free T4 (06/07/2022 9:54 AM DEALERSHIP MANAGER) athologist Signature T4 Free 1.01 0.93 - 1.70 [facility] ng/dL Comment: Testing Performed at [facility] Lab Am bulatory Care [facility], [address] [facility], [address], [place] [address] Specimen Anatomical Collection Method Collection Time Receive d Time (Source) Location / / Volume Laterality Blood 06/07/2022 9:54 AM 2 DEALERSHIP MANAGER 10:05 AM DEALERSHIP MANAGER Stella Clark ANP LAB BLOOD ORDERABLES Performing Organization Address [facility]/ZIP Code Phon e Number [facility] [address] [facility] [place] [address] [address] Magnesium Level (06/07/2022 9:54 AM DEALERSHIP MANAGER) athologist Signature Magnesium 1.9 1.6 - 2.6 [facility] mg/dL Comment: Testing Performed at [facility] Lab Am bulatory Care [facility], [address] [facility], [address], [place] [address] Specimen Anatomical Collection Method Collection Time Receive d Time (Source) Location / / Volume Laterality Blood 06/07/2022 9:54 AM DEALERSHIP MANAGER 10:05 AM DEALERSHIP MANAGER Stella Clark ANP LAB BLOOD ORDERABLES Performing Organization Address City/State/ZIP Code Rachana [facility] [address] [place] [address] [address] PETCT Subsequent Treatment Strategy (06/07/2022 9:27 AM DEALERSHIP MANAGER) Anatomical Region Laterality Modality Whole Body Positron Emission To mography (PET) Specimen (Source) Anatomical Collection Method Collection Time Re ceived Time Location / / Volume Laterality 06/07/2022 11:01 AM DEALERSHIP MANAGER Impressions 06/07/2022 11:46 AM DEALERSHIP MANAGER 1. No convincing evidence of FDG-avid small cell lung cancer. 2. Bilateral irregular lung opacities wi th some regions demonstrating associated activity show some change in anatomic configuration when compared to 10/15/2021 CT and are compatible with a chronic waxing/waning infectious or inflammatory process. Narrative 06/07/2022 11:46 AM DEALERSHIP MANAGER FULL RESULT: Examination: FDG PET/CT, 06/07/2022 9:27 [...] inflammatory process. Stella BERGMAN IMMark PETCT ORDERABLES after 11/14/2021 Insurance Payer Benefit Plan / Subscriber ID Effective Phone Address T ype Group Dates [employer] [id number] 2020-Prese [address] 72 Medicare MEDICARE MEDICARE [place], [place] ADVANTAGE ADVANTAGE [id number] Guarantor Name Account Type Relation to Date of Phone Billing Patient Address Chato Moreno Personal/Family Self 1955 [phone] ([place]) [place] [id number] Chato Moreno Personal/Family Self 1955 [id number] [place] [address] Advance Directives Code Status Date Activated Date Inactivated Comments Full Code 10/15/2021 2:23 PM 10/24/2021 8:32 PM Code Status Date Activated Date Inactivated Comments Full Code 09/03/2021 10:00 PM 09/07/2021 5:51 PM Full Code 02/16/2021 11:33 PM 03/02/2021 8:45 PM Full Code 01/22/2021 1:08 AM 01/30/2021 8:41 PM Full Code 01/04/2021 3:56 PM 01/19/2021 6:53 PM Care Teams Log Clerk Relationship Specialty Start Date End Date Carl Jones MD PCP - External Primary Family Practice 02/14/20 [address] [facility] Care Provider [address] [place] [address] Henrique Plasencia MD PCP - General Thoracic Medicine 04/21/[address] [place] [id number] Kang Piedra MD PCP - External Follow Up Dermatology 06/12/[address] [place] [id number] Mary Beth Hinson, Speech Language Speech Pathology 04/16/21 [facility] KILN BURNER Pathologist [address] [place] [id number]
--- OUTSIDE RECORDS SUMMARY | 2022-11-14 21:35 | XMS REPORT | Continuity of Care Document ---
:1955 Author Organization [facility] t Address [address] [place] [address] Care Team Providers Name Role Phone MARIA FERNANDA WASHINGTON Primary Care Physician Unavailable SYSTEM, PROVIDER NOT IN Attending Clinician Unavailable Luis Angel CARDENAS, Maria Fernanda Fu Attending Clinician Stella Goodrich Attending Clinician Giovana JARAMILLO, Liz Flores Attending Clinician Unavailable Fab JARAMILLO, Inez Stewart Attending Clinician Unavailable Mamadou JARAMILLO, Zulema Ramírez Attending Clinician Unavailable Lazaro ASSOCIATE FINANCIAL ANALYST, Constantine Attending Clinician Ger JARAMILLO, Lolita Sommer [...] Clinician Alexus CARDENAS, Boni Carr Attending Clinician [phone] Jackson JARAMILLO, Arcadio Attending Clinician Unavailable BONI OBRIEN Attending Clinician Unavailable Aisha CARDENAS, Edwige Orozco Attending Clinician Zane CARDENAS, Jenise Attending Clinician Dhiraj Fry CRNA Attending Clinician Jacquelyn CARDENAS, Shena Gudino Attending Clinician Unavailable TOD GLASS V. Attending Clinician Unavailable MARIA FERNANDA WASHINGTON V. Attending Clinician Unavailable JUDY, ED Attending Clinician Unavailable Shantal Patiño MD, Deshawn Attending Clinician [phone] Dean JARAMILLO, Stella Stewart Attending Clinician Unavailable Price JARAMILLO, Ileana Ann Attending Clinician Unavailable Aisha CARDENAS, Mehrdad Attending Clinician Gurpreet Estes MD Attending Clinician DANISH HART Attending Clinician Unavailable Michael Lopez RN Attending Clinician Unavailable Lela Sanon APN Attending Clinician Tadeo CARDENAS, Herrera Attending Clinician Jacki Campbell Attending Clinician Gucci ASSOCIATE FINANCIAL ANALYST, Sarah Ybarra Attending Clinician Tejinder CARDENAS, Raymundo Attending Clinician Miguel Ángel ROUSSEAU, Nicole Hirsch Attending Clinician Abdirizak Fenton MD Attending Clinician Jarrett JARAMILLO, Génesis Ann Attending Clinician Unavailable Anais JARAMILLO, Génesis Trevino Attending Clinician Unavailable Andrea ROUSSEAU, Jackie Attending Clinician Yudith Rivas RN Attending Clinician Unavailable Claude Tobin MD Attending Clinician Junek SERVICE ELECTRICIAN, Elmira N Attending Clinician Tegan CARDENAS, Giovanna Tanner Attending Clinician Sravan [facility]-PROMOTIONAL REPRESENTATIVE, Mary Beth Ann Attending Clinician Unavailable Rah CARDENAS, Herrera Attending Clinician Enzo PharmD, Wayne Attending Clinician Brandon RN, Juan Lehman Attending Clinician Unavailable Lisa JARAMILLO, Gurpreet Ramírez Attending Clinician Unavailable Pineda IWTT, Gabrielle Owens Attending Clinician Tejinder CHAPPELL, Alina [...] No Primary or Family Admitting Clinician [facility] Payers Payer Name Policy Type Policy Number Effective Date Expiration Date S william EMANUEL [id number] 2020 PLUS CLASSIC/VALUE 00:00:00 Problems Condition Condition Condition Status Onset Resolution Last Treating Co mments Source Name Details Category Date Date Treatment Clinician Date 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 Center Added automatic ally from request for surgery [id number] Family Family Disease Active 2020-06 Univers education education 1-09 [place]y of about pain about pain [place] management management 00 MD Fuentes zimmerman [facility] [place] History of History of Disease Recurre Univers radiation radiation nce 8-20 ity of therapy therapy 00:00: [place] 00 MD Fuentes zimmerman [facility] Pressure-i Pressure-i Disease Active Overview : Univers nduced nduced 7-09 Formattin ity of deep deep 00:00: g of this [place] tissue tissue 00 note damage of damage of might be An derso other site other site different n from the Cancer original. Center Site: Coccyx Sepsis Sepsis Disease Active Univers 7-08 ity of 00:00: [place] 00 MD Fuentes zimmerman [facility] Pulmonary Pulmonary Disease Active Uni vers embolism embolism 5-21 ity of 00:00: [place] 00 MD Fuentes zimmerman [facility] Stage 1 Stage 1 Disease Active Overview: Univ ers pressure pressure 5-18 Formattin ity of ulcer of ulcer of 00:00: g of this [place] as other site other site 00 note might be Anderso different n from the Cancer original. 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 Tube Tube Disease Active Univers feeding feeding 4-24 ity of diet diet 00:00: [place] 00 MD Fuentes zimmerman [facility] Pneumonia Pneumonia Disease Active Uni vers due to due to 4-22 ity of other other 00:00: [place] Gram-negat Gram-negat 00 MD ceci Dill bacteria bacteria [facility] Sequelae Sequelae Disease Active Unive rs of of 4-11 ity of hyperalime hyperalime 00:[place] ntation ntation 00 MD Dill [facility] Adverse Adverse Disease Active Univers effect of effect of 3-23 ity of glucocorti glucocorti 00:[place] coids and coids and synthetic synthetic Prince rso analogues analogues [facility] Current Current Disease Active Univers use of use of 3-23 ity of insulin insulin 00:00: [place] 00 MD Dill [facility] Anxiety Anxiety Disease Active Univers disorder disorder 3-17 ity of due to a due to a 00:00: [place] general general 00 medical medical Andjaniceo condition condition [facility] Disorder Disorder Disease Active Unive rs of fluid of fluid 3-08 ity of AND/OR AND/OR 00:00: [place] electrolyt electrolyt 00 [facility] Sinus Sinus Disease Active Univers tachycardi tachycardi 3-08 it y of a a 00:00: [place] 00 MD Fuentes zimmerman [facility] Pleuritic Pleuritic Disease Active Uni vers pain pain 2-26 ity of 00:00: [place] 00 MD Fuentes zimmerman [facility] Anemia of Anemia of Disease Recurre Un yakov chronic chronic nce 2-22 ity of disease disease 00:00: [place] 00 MD Fuentes zimmerman [facility] Acute and Acute and Disease Active Uni vers chronic chronic 2-22 ity of respirator [place] y failure y failure 00 with with Fuentes hypoxia hypoxia [facility] Failure to Failure to Disease Active U nivers thrive thrive 2-22 ity of 00:00: [place] 00 MD Fu[facility] 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 An derso on on n [facility] Dyspnea Dyspnea Disease Active Univers 2-11 ity of 00:00: [place] 00 MD Fuentes zimmerman [facility] Decompensa Decompensa Disease Active U nivers lakhwinder COPD lakhwinder COPD 1-31 ity of with acute with acute 00:[place] exacerbati exacerbati 00 on on Fuentes zimmerman [facility] 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 Un yakov current current nce 1-31 ity of use of use of 00:00: [place] opiate opiate 00 analgesic analgesic [facility] 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 [...] Univers emphysema emphysema ity of Willis zimmerman [facility] Adjustment Adjustment Disease Recurre Univers disorder disorder nce ity of with mixed with mixed [place] anxiety anxiety and franco Dill depressed depressed n mood mood [facility] Chronic Chronic Disease Active Univers pain due pain due ity of to to [place] malignant malignant neoplastic neoplastic An derso disease disease n Cancer Center Slow Slow Disease Active Univers transit transit ity of const[place]ati [place] on on MD Fuentes zimmerman [facility] Other Other Disease Active Univers psychologi psychologi it y of tracy or [facility] or [place] physical physical stress, stress, Anderso not not n elsewhere elsewhere Canc er classified classified Ce nter Personal Personal Disease Recurre Univ ers history of history of nce it y of COVID-19 COVID-19 [place] zimmerman [facility] Acute Acute Disease Resolve 2021-09-04 2021-09-04 Univers kidney kidney d 8-20 00:00:00 14:37:22 ity of injury due injury due [place] to to 00 hypovolemi hypovolemi An derso a a n [facility] Hypovolemi Hypovolemi Disease Resolve 2021-09-04 2021-09-04 Univers a a d 8 00:00:00 14:36:33 ity of 00:00: [place] 00 MD Fuentes zimmerman [facility] High High Disease Resolve 2021-09-04 2021-09-04 Univers troponin I troponin I d 8 00:00:00 14:35:35 ity of level level 00:00: [place] [facility] Hyperkalem Hyperkalem Disease Resolve 2021-09-04 2021-09-04 Univers ia ia d 02-16 00:00:00 14:36:15 ity of 00:00: [place] 00 MD Dill [facility] Aspergillo Aspergillo Disease Resolve 2021-09-04 2021-09-04 Univers sis with sis with d 10-25 00:00:00 14:36:44 it y of pneumonia pneumonia 00:[place] [facility] Multiple Multiple Disease Resolve 2021-09-04 2021-09-04 Univers lung lung d 10-20 00:00:00 14:36:17 [place]y of abscesses abscesses 00:[place] [facility] Drug Drug Disease Resolve 2021-09-04 2021-09-04 Univers induced induced d 09-19 00:00:00 14:37:13 ity of diabetes diabetes 00:00: [place] mellitus mellitus 00 with with Fuentes hyperglyce hyperglyce n [facility] residential buttermaker Disease Resolve 2021-09-04 2021-09-04 Univers current current d 3 00:00:00 14:37:15 ity of use of use of 00:00: [place] systemic systemic 00 [facility] Pneumocyst Pneumocyst Disease Resolve 2021-09-04 2021-09-04 Univers osis osis d 09-04 00:00:00 14:35:43 ity of pneumonia pneumonia 00:00: [facility] Cytomegalo Cytomegalo Disease Resolve 2021-09-04 2021-09-04 Univers virus virus d 3-08 00:00:00 14:35:47 ity of infection infection 00:00: s 00 MD Fuentes zimmerman [facility] Diarrhea Diarrhea Disease Resolve 2021-09-04 2021-09-04 Univers d 2-22 00:00:00 14:37:13 ity of 00:00: 00 MD Villegas erasmo [facility] Aspiration Aspiration Disease Resolve 2021-09-04 2021-09-04 Univers into lower into lower d 2-11 00:00:00 14:37:24 [place]y of respirator respirator [place] y tract y tract 00 MD Villegas erasmo [facility] COVID-19 COVID-19 Disease Resolve 2021-09-04 2021-09-04 Univers d 1-30 00:00:00 14:35:39 ity of 00:00: 00 MD Fuentes zimmerman [facility] Amaurosis Amaurosis Disease Resolve 2021-09-04 2021-09-04 Univers fugax fugax d 4-29 00:00:00 14:36:43 ity of 00:00: 00 MD Fuentes zimmerman [facility] Cancer-rel Cancer-rel Disease Resolve 2021-09-04 2021-09-04 Univers ated ated d 00:00:00 14:37:19 ity of fatigue fatigue Willis zimmerman [facility] Mixed Mixed Disease Resolve 2021-09-04 2021-09-04 Univers infectious infectious d 00:00:00 14:36:17 ity of disease disease Willis zimmerman [facility] Tomography Tomography Disease Resolve 2021-09-04 2021-09-04 Univers - chest - chest d 00:00:00 14:36:37 ity of abnormal abnormal Willis zimmerman [facility] Allergies, Adverse Reactions, Alerts Allergy Allergy Status Severity Reaction(s) Onset Inactive Treating Comm ents Source Name Type Date Date Clinician No Known DA Active U 2019- [facility] Allergie 0-30 [place] [facility] 00:00: d 00 [facility] No Known DA Active U 2019- [facility] Allergie 0-30 [facility] codeine DA Active [place] 2020-0 [facility] 2-13 [facility] 00:[facility]: d 00 [facility] codeine DA Active [place] rash 2019- [facility] 2-13 [facility] 00:[facility]: d 00 [facility] codeine DA Active [place] rash 2011- [facility] 0-09 [facility] 00:[facility]: d 00 [facility] codeine DA Active [place] 2011- [facility] 0-09 [facility] 00:[facility]: d 00 [facility] NO KNOWN Drug Active Univers ALLERGIE Class ity of S [facility] Family History Family Member Diagnosis Comments Start Date Stop Date Source Maternal grandfather Emphysema Univ ersity [facility] Cance r [place] Natural sister Lung cancer [facility] [place] [facility] Social History Social Habit Start Date Stop Date Quantity Comments Source History of tobacco Cigarette Smoker University of [facility] MD Levi darden [facility] History SDOH University o f Alcohol Frequency [facility] History SDOH University o f Alcohol Std Drinks [facility] History SDOH University o f Alcohol Binge [place] MD Marianela gustafson [facility] Exposure to 2022-09-03 2022-09-13 Not sure University of SARS-CoV-2 (event) 00:00:00 08:17:00 [facility] Cigarettes smoked 2022-09-13 2022-09-13 Univers ity of current (pack per 00:00:00 00:00:00 [facility] ) - Reported Cancer Ce nter Tobacco use and 2022-09-13 2022-09-13 Smokeless Universit y of exposure 00:00:00 00:00:00 tobacco non-user [facility] Alcohol intake 2022-09-13 2022-09-13 Ex-drinker University of 00:00:00 00:00:00 (finding) Willis darden [facility] Alcohol Comment 2020-03-02 2020-03-02 .5 gallon of Univers ity of 00:00:00 00:00:00 vodka daily 15 Willis Ramírez nderson [facility] Sex Assigned [birth year] Universit y of 00:00:00 00:00:00 Willis darden [facility] Smoking Status Start Date Stop Date Source Ex-smoker 2022-09-13 00:00:00 2022-09-13 00:00:00 [facility] Medications Ordered Filled Start Stop Current Ordering Indication Dosage Frequency Signature Comments Components Source Medication Medication Date Date Medication? Clinician (SIG) Name Name atorvastati Yes 40mg Take 40 mg Univers n (LIPITOR) 3-17 by mouth ity of 40 mg 11:58: daily. [place] tablet 00 MD Fuentes zimmerman [facility] budesonide Yes severe .25mg Inhale Un yakov (PULMICORT) 3-17 chronic 0.25 mg by ity of 0.25 mg/2 11:58: obstructive nebulizati [place] mL 00 pulmonary on daily. nebulizer disease [facility] solution [facility] umeclidiniu Yes Inhale by U nivers m-vilantero 3-17 mouth. ity of L 62.5-25 11:58: [place] mcg/actuati 00 on dsdv [facility] megestrol Yes 400mg Give 400 Uni vers (MEGACE) 40 3-17 mg per ity of mg/mL 11:58: G-tube. [place] suspension 00 MD Fuentes zimmerman [facility] atorvastati Yes 40mg Take 40 mg Univers n (LIPITOR) 3-17 by mouth ity of 40 mg 11:58: daily. [place] tablet 00 MD Dill [facility] budesonide Yes severe .25mg Inhale Un yakov (PULMICORT) 3-17 chronic 0.25 mg by ity of 0.25 mg/2 11:58: obstructive nebulizati [place] mL 00 pulmonary on daily. [facility]bulizer disease [facility] umeclidiniu Yes Inhale by U nivers m-vilantero 3-17 mouth. ity of L 62.5-25 11:58: [place] mcg/actuati 00 on dsdv [facility] megestrol Yes 400mg Give 400 Uni vers (MEGACE) 40 3-17 mg per ity of mg/mL 11:58: G-tube. [place] suspension 00 MD Dill [facility] atorvastati Yes 40mg Take 40 mg Univers n (LIPITOR) 3-17 by mouth ity of 40 mg 11:58: daily. [place] tablet 00 MD Dill [facility] budesonide Yes severe .25mg Inhale Un yakov (PULMICORT) 3-17 chronic 0.25 mg by ity of 0.25 mg/2 11:58: obstructive nebulizati [place] mL 00 pulmonary on daily. nebulizer disease Anderso solution [facility] umeclidiniu Yes Inhale by U nivers m-vilantero 3-17 mouth. ity of L 62.5-25 11:58: [place] mcg/actuati [facility] Give 400 Uni vers (MEGACE) 40 3-17 mg per ity of mg/mL 11:58: G-tube. [place] suspension 00 MD Dill [facility] atorvastati Yes 40mg Take 40 mg Univers n (LIPITOR) 3-17 by mouth ity of 40 mg 11:58: daily. [place] tablet 00 MD Dill [facility] budesonide Yes severe .25mg Inhale Un yakov (PULMICORT) 3-17 chronic 0.25 mg by ity of 0.25 mg/2 11:58: obstructive nebulizati [place] mL 00 pulmonary on daily. [facility]bulizer [facility] Inhale by U nivers m-vilantero 3-17 mouth. ity of L 62.5-25 11:58: [place] mcg/actuati [facility] Yes 400mg Give 400 Uni vers (MEGACE) 40 3-17 mg per ity of mg/mL 11:58: G-tube. [place] suspension 00 MD Dill [facility] Eliquis 5 Yes 5mg Take 1 Univer s mg tablet 3-06 tablet (5 ity o f 00:00: mg) by 00 mouth MD maggy scott. [facility] Eliquis 5 Yes 5mg Take 1 Univer s mg tablet 3-06 tablet (5 ity o f 00:00: mg) by [place] 00 mouth twice Anderso daily. n [facility] Eliqu 5 2022-0 Yes 5mg Take 1 Univer s mg tablet 3-06 tablet (5 ity o f 00:00: mg) by [place] mouth twice Anderso daily. n [facility] Eliqu 5 2022-0 Yes 5mg Take 1 Univer s mg tablet 3-06 tablet (5 ity o f 00:00: mg) by [place] mouth twice [facility] Yes Inhale by U nivers m-vilantero 2-09 mouth. ity of L 62.5-25 12:33: [place] mcg/actuati 10 MD [facility] Yes Inhale by U nivers m-vilantero 2-09 mouth. ity of L 62.5-25 12:33: [place] mcg/actuati 10 on dsdv [facility] atorvastati 2021-06 Yes 40mg Take 40 mg Univers n (LIPITOR) 2-09 by mouth ity of 40 mg 12:30: daily. [place] tablet 21 MD Dill [facility] budesonide 2021-06 Yes severe .25mg Inhale Un yakov (PULMICORT) 2-09 chronic 0.25 mg by ity of 0.25 mg/2 12:30: obstructive nebulizati [place] mL 21 pulmonary on daily. nebulizer disease Anderso solution [facility] megestrol 2021-06 Yes 400mg Give 400 Uni vers (MEGACE) 40 2-09 mg per ity of mg/mL 12:30: G-tube. [place] suspension 21 MD Fuentes zimmerman [facility] atorvastati 2021-06 Yes 40mg Take 40 mg Univers n (LIPITOR) 2-09 by mouth ity of 40 mg 12:30: daily. [place] tablet 21 [facility] budesonide 2021-06 Yes severe .25mg Inhale Un yakov (PULMICORT) 2-09 chronic 0.25 mg by ity of 0.25 mg/2 12:30: obstructive nebulizati [place] mL 21 pulmonary on daily. nebulizer disease Anderso solution [facility] megestrol 2021-06 Yes 400mg Give 400 Uni vers (MEGACE) 40 2-09 mg per ity of mg/mL 12:30: G-tube. [place] suspension 21 MD [facility] HYDROcodone 2021-06- No Small cell 1{tbl} Take 1 Univers -acetaminop 2-07-08 carcinoma, tablet by ity of hen ([place]) 00:00: 05:59 [place]OS of mouth [place] 5 mg-325 mg 00 :00 upper lobe, every 8 MD per tablet lung (eight) Bakari o <Right> hours as n needed for Cancer moderate Center pain for up to 30 days. HYDROcodone 2021-06- No Small cell 1{tbl} Take 1 Univers -acetaminop 2-07-08 carcinoma, tablet by ity of hen ([place]) 00:00: 05:59 [place]OS of mouth [place] 5 mg-325 mg 00 :00 upper lobe, every 8 MD per tablet lung (eight) Bakari o <Right> hours as n needed for Cancer moderate Center pain for up to 30 days. HYDROcodone 2021-06- No Small cell 1{tbl} Take 1 Univers -acetaminop 2-07-08 carcinoma, tablet by ity of hen ([place]) 00:00: 05:59 NOS of mouth [place] 5 mg-325 mg 00 :00 upper lobe, every 8 MD per tablet lung (eight) Bakari o <Right> hours as n needed for Cancer moderate Center pain for up to 30 days. HYDROcodone 2021-06- No Small cell 1{tbl} Take 1 Univers -acetaminop 2-07-08 carcinoma, tablet by ity of hen ([place]) 00:00: 05:59 [place]OS of mouth [place] 5 mg-325 mg 00 :00 upper lobe, every 8 MD per tablet lung (eight) Bakari o <Right> hours as n needed for Cancer moderate Center pain for up to 30 days. HYDROcodone 2021-06- No Small cell 1{tbl} Take 1 Univers -acetaminop 2-07-08 carcinoma, tablet by ity of hen ([place]) 00:00: 05:59 NOS of mouth [place] 5 mg-325 mg 00 :00 upper lobe, every 8 MD per tablet lung (eight) Bakari o <Right> hours as n needed for Cancer moderate Center pain for up to 30 days. HYDROcodone 2021-06- No Small cell 1{tbl} Take 1 Univers -acetaminop 08-08 carcinoma, tablet by ity of hen ([place]) 00:00: 05:59 [place]OS of mouth [place] [...] <Right> daily for n tablet 10 days. [facility] amoxicillin 2021-06- No Small cell 875mg Take 1 Univers -clavulanat 08-08 carcinoma, tablet ity of e 00:00: 05:59 NOS of (875 mg) [place] (AUGMENTIN) 00 :00 upper lobe, by mouth 875 mg-125 lung twice Anderso mg per <Right> daily for n tablet 10 days. [facility] amoxicillin 2021-06- No Small cell 875mg Take 1 Univers -clavulanat 08-08 carcinoma, tablet ity of e 00:00: 05:59 NOS of (875 mg) [place] (AUGMENTIN) 00 :00 upper lobe, by mouth 875 mg-125 lung twice Anderso mg per <Right> daily for n tablet 10 days. [facility] amoxicillin 2021-06- No Small cell 875mg Take 1 Univers -clavulanat 08-08 carcinoma, tablet ity of e 00:00: 05:59 NOS of (875 mg) [place] (AUGMENTIN) 00 :00 upper lobe, by mouth 875 mg-125 lung twice Anderso mg per <Right> daily for n tablet 10 days. [facility] amoxicillin 2021-06- No Small cell 875mg Take 1 Univers -clavulanat 08-08 carcinoma, tablet ity of e 00:00: 05:59 NOS of (875 mg) [place] (AUGMENTIN) 00 :00 upper lobe, by mouth 875 mg-125 lung twice Anderso mg per <Right> daily for n tablet 10 days. [facility] amoxicillin 2021-06- Small cell 875mg Take 1 Univers -clavulanat 08-08 12-20 carcinoma, tablet ity of e 00:00: 05:59 NOS of (875 mg) [place] (AUGMENTIN) 00 :00 upper lobe, by mouth 875 mg-125 lung twice Anderso mg per <Right> daily for n [facility] Yes 5mg Take 1 Univer s (PROAMATINE 1-14 tablet (5 ity of ) 5 mg 00:00: mg) by [place] tablet 00 mouth [facility] Yes 5mg Take 1 Univer s (PROAMATINE 1-14 tablet (5 ity of ) 5 mg 00:00: mg) by [place] tablet 00 mouth MD twice Anderso daily. [facility] midodrine 2021-06 Yes 5mg Take 1 Univer s (PROAMATINE 1-14 tablet (5 ity of ) 5 mg 00:00: mg) by [place] tablet 00 mouth MD [facility] Yes 5mg Take 1 Univer s (PROAMATINE 1-14 tablet (5 ity of ) 5 mg 00:00: mg) by [place] tablet 00 mouth MD twice Anderso daily. [facility] midodrine 2021-06 Yes 5mg Take 1 Univer s (PROAMATINE 1-14 tablet (5 ity of ) 5 mg 00:00: mg) by [place] tablet 00 mouth MD twice Anderso daily. [facility] midodrine 2021-06 Yes 5mg Take 1 Univer s (PROAMATINE 1-14 tablet (5 ity of ) 5 mg 00:00: mg) by [place] tablet 00 mouth MD twice Anderso daily. [facility] nystatin 2021-06 Yes 5mL Take 5 mL Univ ers (MYCOSTATIN 1-03 (500,000 ity of ) 100,000 00:00: Units) by [place] units/mL 00 mouth MD suspension every 8 Bakari o (eight) n hours. [facility] nystatin 2021-06 Yes [id number] Take 5 mL U nivers (MYCOSTATIN 1-03 (500,000 ity of ) 100,000 00:00: Units) by [place] units/mL 00 mouth MD suspension every 8 Bakari o (eight) n hours. [facility] nystatin 2021-06 Yes [id number] Take 5 mL U nivers (MYCOSTATIN 1-03 (500,000 ity of ) 100,000 00:00: Units) by [place] units/mL 00 mouth MD suspension every 8 Bakari o (eight) n hours. [facility] nystatin 2021-06 Yes 5mL Take 5 mL Univ ers (MYCOSTATIN 1-03 (500,000 ity of ) 100,000 00:00: Units) by [place] units/mL 00 mouth MD suspension every 8 Bakari o (eight) n hours. [facility] nystatin 2021-06 Yes 5mL Take 5 mL Univ ers (MYCOSTATIN 1-03 (500,000 ity of ) 100,000 00:00: Units) by [place] units/mL 00 mouth MD suspension every 8 Bakari o (eight) n hours. [facility] nystatin 2021-06 Yes 5mL Take 5 mL Univ ers (MYCOSTATIN 1-03 (500,000 ity of ) 100,000 00:00: Units) by [place] units/mL 00 mouth MD suspension every 8 Bakari o (eight) n hours. [facility] QUEtiapine Yes Anxiety 25mg Take [...] Anxiety 25mg Take 1 Un yakov (SEROquel) 7 disorder tablet (25 ity of 25 mg [...] mg) by [place] tablet 00 general mouth [place] every 6 [place] condition (six) n hours as Cancer needed for Center non-violen t agitation (anxiety sleep). QUEtiapine Yes Anxiety 25mg Take 1 [facility] (SEROquel) 12-28 disorder tablet (25 ity of 25 mg 00:00: due to a mg) by [place] tablet 00 general mouth [place] every 6 [place] condition (six) n hours as Cancer needed for Center non-violen t agitation (anxiety sleep). QUEtiapine 0 Yes Anxiety 25mg Take 1 [facility] (SEROquel) - disorder tablet (25 ity of 25 mg 00:00: due to a mg) by [place] tablet 00 general mouth [place] every 6 [place] condition (six) n hours as Cancer needed for Center non-violen t agitation (anxiety sleep). QUEtiapine Yes Anxiety 25mg Take 1 [facility] (SEROquel) - disorder tablet (25 ity of 25 mg 00:00: due to a mg) by [place] tablet 00 general mouth [place] every 6 [place] condition (six) n [...] specified daily. n tablet Cancer Center amoxicillin 0 Yes Upper 875mg Take 1 Un yakov [...] Bakari o specified n Cancer Center fluconazole 2021-2021- No Candidal 200mg Take 1 Univers (Diflucan) 4 05-03 esophagitis tablet ity of 200 mg 00:00: 04:59 (200 mg) [place] tablet 00 :00 by mouth MD daily for Anderso 4 days. n [facility] fluconazole 2021- No Candidal 200mg Take 1 Univers (Diflucan) 10-25- esophagitis tablet ity of 200 mg 00:00: 04:59 (200 mg) [place] tablet 00 :00 by mouth MD daily for Anderso 4 days. n [facility] fluconazole 2021- No Candidal 200mg Take 1 Univers (Diflucan) 10-25- esophagitis tablet ity of 200 mg 00:00: 04:59 (200 mg) [place] tablet 00 :00 by mouth MD daily for Anderso 4 days. [facility] fluconazole 2021- No Candidal 200mg Take 1 Univers (Diflucan) 10-25 esophagitis tablet ity of 200 mg 00:00: 04:59 (200 mg) [place] tablet 00 :00 by mouth MD daily for Anderso 4 days. n [facility] fluconazole 2021- No Candidal 200mg Take 1 Univers (Diflucan) 10-25 esophagitis tablet ity of 200 mg 00:00: 04:59 (200 mg) [place] tablet 00 :00 by mouth MD daily for Anderso 4 days. n [facility] fluconazole 2021- No Candidal 200mg Take 1 Univers (Diflucan) 10-25 esophagitis tablet ity of 200 mg 00:00: 04:59 (200 mg) [place] tablet 00 :00 by mouth MD daily for Anderso 4 days. [facility] fluconazole 2021- No Candidal 200mg Take 1 Univers (Diflucan) 10-25- esophagitis tablet ity of 200 mg 00:00: 04:59 (200 mg) [place] tablet 00 :00 by mouth MD daily for Anderso 4 days. n [facility] promethazin 2021- No 12.5mg Take 12.5 Univers e 10-24 04-27 mg by ity of (PHENERGAN) 18:27: 00:00 [place] 12.5 mg 03 :00 every 6 MD tablet (six) [place]o hours as n needed. [facility] [place] aspirin 81 2021- No 81mg Take 81 mg Univers mg EC 4-27 04-27 by mouth ity of tablet 18:27: 00:00 as needed. [place] 03 :00 [place] Fuentes zimmerman [facility] 2021- No 12.5mg Take 12.5 Univers e 4-27 04-27 mg by ity of (PHENERGAN) 18:27: 00:00 [place] 12.5 mg 03 :00 every 6 MD tablet (six) Anderso hours as n needed. [facility] [place] aspirin 81 2021- No 81mg Take 81 mg Univers mg EC 4- 04-27 by mouth ity of tablet 18:27: 00:00 as needed. [place] 03 :00 MD Fuentes zimmerman [facility] 2021- No 12.5mg Take 12.5 Univers e 4- 04-27 mg by ity of (PHENERGAN) 18:27: 00:00 [place] 12.5 mg 03 :00 every 6 MD tablet (six) [place] hours as n needed. [facility] [place] aspirin 81 2021- No 81mg Take 81 mg Univers mg EC 4- 04-27 by mouth ity of tablet 18:27: 00:00 [place]. [place] 03 [place]00 [place] Fuentes zimmerman [facility] 2021- No 12.5mg Take 12.5 Univers e 4- 04-27 mg by ity of (PHENERGAN) 18:27: 00:00 [place] 12.5 mg 03 :00 every 6 MD tablet (six) [place] hours as n needed. [facility] [place] aspirin 81 2021- No 81mg Take 81 mg Univers mg EC 4- 04-27 by mouth ity of tablet 18:27: 00:00 [place]. [place] 03 [place]00 [place] Fuentes zimmerman [facility] 2021- No 12.5mg Take 12.5 Univers e 4-27 04-27 mg by ity of (PHENERGAN) 18:27: 00:00 mouth [place] 12.5 mg 03 :00 every 6 MD tablet (six) [place] hours as n needed. [facility] [place] aspirin 81 2021- No 81mg Take 81 mg Univers mg EC - 04-27 by mouth ity of tablet 18:27: 00:00 as needed. [place] 03 :00 MD Fuentes zimmerman [facility] promethazin 2021- No 12.5mg Take 12.5 Univers e 4- 04-27 mg by ity of (PHENERGAN) 18:27: 00:00 mouth [place] 12.5 mg 03 :00 every 6 tablet (six) [place] hours as n needed. [facility] aspirin 81 2021- No 81mg Take 81 mg Univers mg EC - 04-27 by mouth ity of tablet 18:27: 00:00 as needed. [place] 03 :00 MD Fuentes zimmerman [facility] promethazin No 12.5mg Take 12.5 Univers e - 04-27 mg by ity of (PHENERGAN) 18:27: 00:00 [place] 12.5 mg 03 :00 every 6 tablet (six) Anders[place] hours as n needed. [facility] aspirin 81 2021- No 81mg Take 81 mg Univers mg EC 10-24 04-27 by mouth ity of tablet 18:27: 00:00 as needed. [place] s 03 :00 MD Dill [facility] atorvastati Yes 40mg Take 40 mg Univers n (LIPITOR) -27 by mouth ity of 40 mg 18:26: daily. 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 ity of L 62.5-25 18:26: [place] mcg/actuati 55 MD on dsdv [facility] megestrol Yes 400mg Give 400 Uni vers (MEGACE) 40 4-27 mg per ity of mg/mL 18:26: G-tube. [place] suspension 55 [facility] atorvastati Yes 40mg Take 40 mg Univers n (LIPITOR) 4-27 by mouth ity of 40 mg 18:26: daily. 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 ity of L 62.5-25 18:26: [place] mcg/actuati 55 on dsdv [facility] megestrol Yes 400mg Give 400 Uni vers (MEGACE) 40 4-27 mg per ity of mg/mL 18:26: G-tube. [place] suspension 55 [facility] atorvastati Yes 40mg Take 40 mg Univers n (LIPITOR) 4-27 by mouth ity of 40 mg 18:26: daily. 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 [facility]bul[facility] umeclidiniu Yes Inhale by U nivers m-vilantero 4-27 mouth. ity of L 62.5-25 18:26: [place] mcg/actuati 55 on dsdv [facility] megestrol Yes 400mg Give 400 Uni vers (MEGACE) 40 4-27 mg per ity of mg/mL 18:26: G-tube. [place] suspension 55 [facility] ipratropium Yes Pneumocysto 3mL Inhale [...] 4 [place] imethicone 00 disease (four) (JAMI hours as [place] PLUS) 200 needed for [...] Gastroesoph 15mL Take 15 mL Univers gnesium -27 ageal by mouth ity of hydroxide-s 00:00: [...] Yes Pneumonia 600mg Take 1 Univers (MUCINEX) -27 due to tablet ity of 600 mg [...] mg 00:00: with mixed (75 mg) by [place] tablet 00 anxiety and mouth at [place] depressed bedtime. [place] o mood n Cancer [...] mg 00:00: with mixed (75 mg) by [place] tablet 00 anxiety and mouth at MD [...] of hydroxide-s 00:00: reflux every 4 [place] imethicone 00 disease (four) (MAALOX hours as [...] specified daily for n tablet 7 days. [facility] amoxicillin 2021- No Upper 875mg Take 1 U nivers -clavulanat 10-11 respiratory tablet ity of e 00:00: 00:00 infection, (875 mg) [place] (Augmentin) 00 :00 not by mouth 875 mg-125 otherwise twice And erso mg per specified daily for n tablet 7 days. [facility] amoxicillin 2021- No Upper 875mg Take 1 U nivers -clavulanat 10-11 respiratory tablet ity of e 00:00: 00:00 infection, (875 mg) [place] (Augmentin) 00 :00 not by mouth 875 mg-125 otherwise twice And erso mg per specified daily for n tablet 7 days. [facility] amoxicillin 2021- No Upper 875mg Take 1 U nivers -clavulanat 10-11 respiratory tablet ity of e 00:00: 00:00 infection, (875 mg) [place] (Augmentin) 00 :00 not by mouth 875 mg-125 otherwise twice And erso mg per specified daily for n tablet 7 days. [facility] amoxicillin 2021- No Upper 875mg Take 1 U nivers -clavulanat 10-11 respiratory tablet ity of e 00:00: 00:00 infection, (875 mg) [place] (Augmentin) 00 :00 not by mouth 875 mg-125 otherwise twice And erso mg per specified daily for n tablet 7 days. [facility] amoxicillin 2021- No Upper 875mg Take 1 U nivers -clavulanat 10-11 respiratory tablet ity of e 00:00: 00:00 infection, (875 mg) [place] (Augmentin) 00 :00 not by mouth MD 875 mg-125 otherwise twice And erso mg per specified daily for n tablet 7 days. [facility] amoxicillin 2021- No Upper 875mg Take 1 U nivers -clavulanat 10-11 respiratory tablet ity of e 00:00: 00:00 infection, (875 mg) [place] (Augmentin) 00 :00 not by mouth MD 875 mg-125 otherwise twice And erso mg per specified daily for n tablet 7 days. [facility] amoxicillin 2021- No Decompensat 875mg Take 1 Univers -clavulanat 10-10 ed COPD tablet it y of e 00:00: 00:00 with acute (875 mg) [place] (Augmentin) 00 :00 exacerbatio by mouth 875 mg-125 n twice [place] mg per daily for n tablet 5 days. [facility] amoxicillin 2021- No Decompensat 875mg Take 1 Univers -clavulanat 10-10 ed COPD tablet it y of e 00:00: 00:00 with acute (875 mg) [place] (Augmentin) 00 :00 exacerbatio by mouth 875 mg-125 n twice [place] mg per daily for n tablet 5 days. [facility] amoxicillin 2021- No Decompensat 875mg Take 1 Univers -clavulanat 10-10 ed COPD tablet it y of e 00:00: 00:00 with acute (875 mg) [place] (Augmentin) 00 :00 exacerbatio by mouth 875 mg-125 n twice [place] mg per daily for n tablet 5 days. [facility] amoxicillin 2021- No Decompensat 875mg Take 1 Univers -clavulanat 10-10 ed COPD tablet it y of e 00:00: 00:00 with acute (875 mg) [place] (Augmentin) 00 :00 exacerbatio by mouth 875 mg-125 n twice [place] mg per daily for n tablet 5 days. [facility] amoxicillin 2021- No Decompensat 875mg Take 1 Univers -clavulanat 10-1014 ed COPD tablet it y of e 00:00: 00:00 with acute (875 mg) [place] (Augmentin) 00 :00 exacerbatio by mouth MD 875 mg-125 n twice [place] mg per daily for n tablet 5 days. [facility] amoxicillin 2021- No Decompensat 875mg Take 1 Univers -clavulanat 10-10 ed COPD tablet it y of e 00:00: 00:00 with acute (875 mg) [place] (Augmentin) 00 :00 exacerbatio by mouth MD 875 mg-125 n twice [place] mg per daily for n tablet 5 days. [facility] amoxicillin 2021- No Decompensat 875mg Take 1 Univers -clavulanat 10-10 ed COPD tablet it y of e 00:00: 00:00 with acute (875 mg) [place] (Augmentin) 00 :00 exacerbatio by mouth MD 875 mg-125 n twice [place] mg per daily for n tablet 5 days. [facility] acetaminoph Yes Neoplasm 1{tbl} Take [...] or moderate pain (Marj Garza APN). acetaminoph 2021-0 Yes Neoplasm 1{tbl} Take 1 Univers en-codeine 3-11 related tablet by i ty of (TYLENOL 00:00: pain mouth [place] #3) 300 00 (acute) every 6 MD mg-30 mg (chronic) (six) [place] so tablet hours as n needed for Cancer mild pain Center or moderate pain (Marj Garza APN). acetaminoph 2021-0 Yes Neoplasm 1{tbl} Take 1 Univers en-codeine 3-11 related tablet by i ty of (TYLENOL 00:00: pain mouth [place] #3) 300 00 (acute) every 6 MD mg-30 mg (chronic) (six) [place] so tablet hours as n needed for Cancer mild pain Center or moderate pain (Marj Garza APN). acetaminoph 2021-0 Yes Neoplasm 1{tbl} Take 1 Univers en-codeine 3-11 related tablet by i ty of (TYLENOL 00:00: pain mouth [place] #3) 300 00 (acute) every 6 MD mg-30 mg (chronic) (six) [place] so tablet hours as n needed for Cancer mild pain Center or moderate pain (Marj Garza APN). acetaminoph 2021-0 Yes Neoplasm 1{tbl} Take 1 Univers en-codeine 3-11 related tablet by i ty of (TYLENOL 00:00: pain mouth [place] #3) 300 00 (acute) every 6 MD mg-30 mg (chronic) (six) [place] so tablet hours as n needed for Cancer mild pain Center or moderate pain (Marj Garza APN). acetaminoph 2021-0 Yes Neoplasm 1{tbl} Take 1 Univers en-codeine [...] Center non-violen t agitation. amoxicillin 2021- No [facility] 875mg Take 1 Univers -clavulanat 09-07 acquired tablet i ty of e 00:00: 04:59 pneumonia (875 mg) [place] (AUGMENTIN) 00 :00 by mouth 875 mg-125 every 12 [place] so mg per (twelve) n tablet hours for Cancer 3 days. [place] amoxicillin 2021- No [facility] 875mg Take 1 Univers -clavulanat 09-07 acquired tablet i ty of e 00:00: 04:59 pneumonia (875 mg) [place] (AUGMENTIN) 00 :00 by mouth 875 mg-125 every 12 [place] so mg per (twelve) n tablet hours for Cancer 3 days. [place] amoxicillin 2021- No [facility] 875mg Take 1 Univers -clavulanat 09-07 acquired tablet i ty of e 00:00: 04:59 pneumonia (875 mg) [place] (AUGMENTIN) 00 :00 by mouth 875 mg-125 every 12 [place] so mg per (twelve) n tablet hours for Cancer 3 days. [place] amoxicillin 2021- No [facility] 875mg Take 1 Univers -clavulanat 09-07 acquired tablet i ty of e 00:00: 04:59 pneumonia (875 mg) [place] (AUGMENTIN) 00 :00 by mouth MD 875 mg-125 every 12 [place] so mg per (twelve) n tablet hours for Cancer 3 days. [place] amoxicillin 2021- No [facility] 875mg Take 1 Univers -clavulanat 09-07 acquired tablet i ty of e 00:00: 04:59 pneumonia (875 mg) [place] (AUGMENTIN) 00 :00 by mouth MD 875 mg-125 every 12 [place] so mg per (twelve) n tablet hours for Cancer 3 days. [place] amoxicillin [id number] 875mg Take 1 Univers -clavulanat 09-07 acquired tablet i ty of e 00:00: 00:00 pneumonia (875 mg) [place] (AUGMENTIN) 00 :00 by mouth MD 875 mg-125 every 12 [place] so mg per (twelve) n tablet hours for Cancer 3 days. [place] amoxicillin [id number] 875mg Take 1 Univers -clavulanat 09-07 acquired tablet i ty of e 00:00: 00:00 pneumonia (875 mg) [place] (AUGMENTIN) 00 :00 by mouth 875 mg-125 every 12 [place] so mg per (twelve) n tablet hours for Cancer 3 days. [place] amoxicillin 2021- No [facility] 875mg Take 1 Univers -clavulanat 09-07 acquired tablet i ty of e 00:00: 00:00 pneumonia (875 mg) [place] (AUGMENTIN) 00 :00 by mouth MD 875 mg-125 every 12 [place] so mg per (twelve) n tablet hours for Cancer 3 days. [place] amoxicillin 2021 No [facility] 875mg Take 1 Univers -clavulanat 09-07 acquired tablet i ty of e 00:00: 00:00 pneumonia (875 mg) [place] (AUGMENTIN) 00 :00 by mouth MD 875 mg-125 every 12 [place] so mg per (twelve) n tablet hours for Cancer 3 days. [place] amoxicillin 2021- No [facility] 875mg Take 1 Univers -clavulanat 09-07 acquired tablet i ty of e 00:00: 00:00 pneumonia (875 mg) [place] (AUGMENTIN) 00 :00 by mouth MD 875 mg-125 every 12 [place] so mg per (twelve) n tablet hours for Cancer 3 days. [place] amoxicillin 2021- No [facility] 875mg Take 1 Univers -clavulanat 09-07 acquired tablet i ty of e 00:00: 00:00 pneumonia (875 mg) [place] (AUGMENTIN) 00 :00 by mouth MD 875 mg-125 every 12 [place] so mg per (twelve) n tablet hours for Cancer 3 days. [place] amoxicillin 2021- No [facility] 875mg Take 1 Univers -clavulanat 09-07 acquired tablet i ty of e 00:00: 00:00 pneumonia (875 mg) [place] (AUGMENTIN) 00 :00 by mouth MD 875 mg-125 every 12 [place] so mg per (twelve) n tablet hours for Cancer 3 days. [place] amoxicillin [id number]- No [facility] 875mg Take 1 Univers -clavulanat 09-07 acquired tablet i ty of e 00:00: 00:00 pneumonia (875 mg) [place] (AUGMENTIN) 00 :00 by mouth MD 875 mg-125 every 12 [place] so mg per (twelve) n tablet hours for Cancer 3 days. [place] amoxicillin [id number]- No [facility] 875mg Take 1 Univers -clavulanat 09-07 acquired tablet i ty of e 00:00: 00:00 pneumonia (875 mg) [place] (AUGMENTIN) 00 :00 by mouth MD 875 mg-125 every 12 [place] so mg per (twelve) n tablet hours for Cancer 3 days. [place] amoxicillin 2021- No [facility] 875mg Take 1 Univers -clavulanat 09-07 acquired tablet i ty of e 00:00: 00:00 pneumonia (875 mg) [place] (AUGMENTIN) 00 :00 by mouth MD 875 mg-125 every 12 [place] so mg per (twelve) n tablet hours for Cancer 3 days. [place] HYDROcodone 2021- No Adjustment 1{tbl} Take 1 Univers -acetaminop 2-19 03-11 disorder tablet by ity of [facility] ([place]) 00:00: 00:00 with mixed mouth [place] 5 mg-325 mg 00 :00 anxiety and every 6 MD per tablet depressed (six) And erso mood hours as n needed for Cancer moderate Center pain for up to 30 days. HYDROcodone 2021- No Adjustment 1{tbl} Take 1 Univers -acetaminop 2-19 -11 disorder tablet by ity of [facility] ([place]) 00:00: 00:00 with mixed mouth [place] 5 mg-325 mg 00 :00 anxiety and every 6 MD per tablet depressed (six) And erso mood hours as n needed for Cancer moderate Center pain for up to 30 days. HYDROcodone 2021- No Adjustment 1{tbl} Take 1 Univers -acetaminop 2-19 03-11 disorder tablet by ity of [place]) 00:00: 00:00 with mixed mouth [place] 5 mg-325 mg 00 :00 anxiety and every 6 MD per tablet depressed (six) And erso mood hours as n needed for Cancer moderate Center pain for up to 30 days. HYDROcodone 2021- No Adjustment 1{tbl} Take 1 Univers -acetaminop 2-19 -11 disorder tablet by ity of [facility] ([place]) 00:00: 00:00 with mixed mouth [place] 5 mg-325 mg 00 :00 anxiety and every 6 MD per tablet depressed (six) And erso mood hours as n needed for Cancer moderate Center pain for up to 30 days. HYDROcodone 2021- No Adjustment 1{tbl} Take 1 Univers -acetaminop 2-19 -11 disorder tablet by ity of [facility] ([place]) 00:00: 00:00 with mixed mouth [place] 5 [...] tablet 00 :00 [place] depressed bedtime. [facility] QUEtiapine 2021- No Adjustment 75mg Take 3 Univers (SEROquel) 08-14 disorder tablets i ty of 25 mg 00:00: 00:00 with mixed (75 mg) by [place] tablet 00 :00 anxiety and mouth [place] depressed bedtime. [facility] QUEtiapine 2021- No Adjustment 75mg Take 3 Univers (SEROquel) 08-14 disorder tablets i ty of 25 mg 00:00: 00:00 with mixed (75 mg) by [place] tablet 00 :00 anxiety and mouth [place] depressed bedtime. [facility] QUEtiapine 2021- No Adjustment 75mg Take 3 Univers (SEROquel) 08-14 disorder tablets i ty of 25 mg 00:00: 00:00 with mixed (75 mg) by [place] tablet 00 :00 anxiety and mouth [place] depressed bedtime. [facility] QUEtiapine 2021- No Adjustment 75mg Take 3 Univers (SEROquel) 08-14 disorder tablets i ty of 25 mg 00:00: 00:00 with mixed (75 mg) by [place] tablet 00 :00 anxiety and mouth [place] depressed bedtime. [facility] QUEtiapine 2021- No Adjustment 75mg Take 3 Univers (SEROquel) 08-14 disorder tablets i ty of 25 mg 00:00: 00:00 with mixed (75 mg) by [place] tablet 00 :00 anxiety and mouth at [place] depressed bedtime. [facility] QUEtiapine 2021- No Adjustment 75mg Take 3 Univers (SEROquel) 08-14 disorder tablets i ty of 25 mg 00:00: 00:00 with mixed (75 mg) by [place] tablet 00 :00 anxiety and mouth at [place] depressed bedtime. [facility] HYDROcodone 2021- No Adjustment 1{tbl} Take 1 Univers -acetaminop 08-14 disorder tablet by [place] ([place]) 00:00: 00:00 with mixed mouth [place] 5 mg-325 mg 00 :00 anxiety and every 6 MD per tablet depressed (six) And erso mood hours as n needed for Cancer moderate Center pain for up to 30 days. HYDROcodone 2021- No Adjustment 1{tbl} Take 1 Univers -acetaminop 2-15 -19 disorder tablet by ity of [place] ([place]) 00:00: 00:00 with mixed mouth [place] 5 mg-325 mg 00 :00 anxiety and every 6 MD per tablet depressed (six) And erso mood hours as n needed for Cancer moderate Center pain for up to 30 days. HYDROcodone 2021- No Adjustment 1{tbl} Take 1 Univers -acetaminop 2-15 -19 disorder tablet by ity of [place] ([place]) 00:00: 00:00 with mixed mouth [place] 5 mg-325 mg 00 :00 anxiety and every 6 MD per tablet depressed (six) And erso mood hours as n needed for Cancer moderate Center pain for up to 30 days. HYDROcodone 2021- No Adjustment 1{tbl} Take 1 Univers -acetaminop 2-15 -19 disorder tablet by ity of [place] ([place]) 00:00: 00:00 with mixed mouth [place] 5 [...] MOUTH MD lung TWICE [place] <Right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, TABLET(10 ity of 10 mg 00:00: NOS of MG) BY [place] tablet 00 upper lobe, MOUTH MD lung TWICE [place] <Right> 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, TABLET(10 ity of 10 mg 00:00: NOS of MG) BY [place] tablet 00 upper lobe, MOUTH MD lung TWICE [place] <Right> [facility]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, TABLET(10 ity of 10 mg 00:00: NOS of MG) BY [place] tablet 00 upper lobe, MOUTH MD lung TWICE [place] <Right> [facility]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, TABLET(10 ity of 10 mg 00:00: NOS of MG) BY [place] tablet 00 upper lobe, MOUTH MD lung TWICE [place] <Right> [facility]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, TABLET(10 ity of 10 mg 00:00: NOS of MG) BY [place] tablet 00 upper lobe, MOUTH MD lung TWICE [place] <Right> DAILY [facility] memantine 2021- 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, x 1 week, ity of 10 [...] cell 5 mg a day Univers (Namenda) 2-10 09- carcinoma, x 1 week, ity of 10 [...] ity of (PROTONIX) 00:00: respiratory MG) BY [place] 40 mg EC 00 tract MOUTH MD tablet DAILY [facility] pantoprazol Yes Aspiration TAKE 1 Univers e 1-28 into lower TABLET(40 ity of (PROTONIX) 00:00: respiratory MG) BY [place] 40 mg EC 00 tract MOUTH MD tablet DAILY [facility] pantoprazol Yes Aspiration TAKE 1 Univers e 1-28 into lower TABLET(40 ity of (PROTONIX) 00:00: respiratory MG) BY [place] 40 mg EC 00 tract MOUTH MD tablet DAILY [facility] pantoprazol Yes Aspiration TAKE 1 Univers e 1-28 into lower TABLET(40 ity of (PROTONIX) 00:00: respiratory MG) BY [place] 40 mg EC 00 tract MOUTH MD tablet DAILY [facility] pantoprazol Yes Aspiration TAKE 1 Univers e 1-28 into lower TABLET(40 ity of (PROTONIX) 00:00: respiratory MG) BY [place] 40 mg EC 00 tract MOUTH MD tablet DAILY [facility] pantoprazol Yes Aspiration TAKE 1 Univers e 1-28 into lower TABLET(40 ity of (PROTONIX) 00:00: respiratory MG) BY [place] 40 mg EC 00 tract MOUTH MD tablet DAILY [facility] pantoprazol Yes Aspiration TAKE 1 Univers e 1-28 into lower TABLET(40 ity of (PROTONIX) 00:00: respiratory MG) BY [place] 40 mg EC 00 tract MOUTH MD tablet DAILY [facility] pantoprazol Yes Aspiration TAKE 1 Univers e 1-28 into lower TABLET(40 ity of (PROTONIX) 00:00: respiratory MG) BY [place] 40 mg EC 00 tract MOUTH MD tablet DAILY [facility] pantoprazol Yes Aspiration TAKE 1 Univers e 1-28 into lower TABLET(40 ity of (PROTONIX) 00:00: respiratory MG) BY [place] 40 mg EC 00 tract MOUTH MD tablet DAILY [facility] QUEtiapine 2021- No Adjustment 75mg Take 3 Univers (SEROquel) 07-11 disorder tablets i ty of 25 mg 00:00: 00:00 with mixed (75 mg) by [place] tablet 00 :00 anxiety and mouth [place] depressed bedtime. [facility] QUEtiapine 2021- No Adjustment 75mg Take 3 Univers (SEROquel) 07-11 disorder tablets i ty of 25 mg 00:00: 00:00 with mixed (75 mg) by [place] tablet 00 :00 anxiety and mouth [place] depressed bedtime. [facility] QUEtiapine 2021- No Adjustment 75mg Take 3 Univers (SEROquel) 07-1115 disorder tablets i ty of 25 mg 00:00: 00:00 with mixed (75 mg) by [place] tablet 00 :00 anxiety and mouth [place] depressed bedtime. [facility] QUEtiapine 2021- No Adjustment 75mg Take 3 Univers (SEROquel) 07-11 disorder tablets i ty of 25 mg 00:00: 00:00 with mixed (75 mg) by [place] tablet 00 :00 anxiety and mouth at MD depressed bedtime. [facility] pantoprazol 2021- No Aspiration 40mg Take 1 Univers e 07-11 into lower tablet (40 it y of (PROTONIX) 00:00: 00:00 respiratory mg) by [place] 40 mg EC 00 :00 tract mouth MD tablet daily. [facility] pantoprazol 2021- No Aspiration 40mg Take 1 Univers e 07-11 into lower tablet (40 it y of (PROTONIX) 00:00: 00:00 respiratory mg) by [place] 40 mg EC 00 :00 tract mouth MD tablet daily. [facility] pantoprazol 2021- No Aspiration 40mg Take 1 Univers e 07-11 into lower tablet (40 it y of (PROTONIX) 00:00: 00:00 respiratory mg) by [place] 40 mg EC 00 :00 tract mouth MD tablet daily. [facility] pantoprazol 2021- No Aspiration 40mg Take 1 Univers e 07-11 into lower tablet (40 it y of (PROTONIX) 00:00: 00:00 respiratory mg) by [place] 40 mg EC 00 :00 tract mouth MD tablet daily. [facility] OLANZapine 2021- No Insomnia, 2.5mg Take 1 Univers (ZyPREXA) 07-02 not tablet ity of 2.5 mg 00:00: 00:00 otherwise (2.5 mg) [place] tablet 00 :00 specified by mouth 2 (two) [place] times a n day as Cancer needed [...] tablet hours as n needed Cancer (pain). [place] amoxicillin 2020-06- No Upper 875mg Take 1 U nivers -clavulanat 08-14 respiratory tablet ity of e 00:00: 00:00 infection, (875 mg) [place] (Augmentin) 00 :00 not by mouth MD 875 mg-125 otherwise twice And erso mg per specified daily. 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 [place] amoxicillin 2020-06- No Upper 875mg Take 1 U nivers -clavulanat -15 respiratory tablet ity of e 00:00: 00:00 infection, (875 mg) [place] (Augmentin) 00 :00 not by mouth MD 875 mg-125 otherwise twice And erso mg per specified daily. n tablet Cancer [facility] 2020-06- No Chronic 1{tbl} Take 1 [facility] en-codeine 15 pain due to tablet by ity of (TYLENOL 00:00: 00:00 malignant mouth [place] #3) 300 00 :00 neoplastic every 4 MD mg-30 mg disease (four) Bakari o tablet hours as n needed Cancer (pain). [place] amoxicillin 2020-06- No Upper 875mg Take 1 U nivers -clavulanat --15 respiratory tablet ity of e 00:00: 00:00 infection, (875 mg) [place] (Augmentin) 00 :00 not by mouth MD 875 mg-125 otherwise twice And erso mg per specified daily. 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 [place] amoxicillin 2020-06- No Upper 875mg Take 1 [...] No Insomnia, 2.5mg Take 1 Univers (ZyPREXA) 007-02 not tablet ity of 2.5 mg 00:00: [...] No Insomnia, 2.5mg Take 1 Univers (ZyPREXA) 0-03 not tablet ity of 2.5 mg 00:00: [...] 00 :00 PRN back MD spasm. [facility] baclofen 2020-06- No Muscle Take 1/2 Un [place] (LIORESAL) 027 11-18 spasm of tablet (5 ity of 10 mg 00:00: 00:00 back mg) PO q12 [place] tablet 00 :00 PRN back MD spasm. [facility] baclofen 2020-06- No Muscle Take 1/2 Un yakov (LIORESAL) 0 11-18 spasm of tablet (5 ity of 10 mg 00:00: 00:00 back mg) PO q12 [place] tablet 00 :00 PRN back MD spasm. [facility] OLANZapine 2020-06- No Adjustment 2.5mg [...] erso mg per specified daily. n tablet [facility] amoxicillin 2020-06- No Upper 875mg Take 1 U nivers -clavulanat 0-15 08-22 respiratory tablet ity of e 00:00: 00:00 infection, (875 mg) [place] (Augmentin) 00 :00 not by mouth 875 mg-125 otherwise twice And erso mg per specified daily. n tablet [facility] amoxicillin 2020-06- No Upper 875mg Take 1 U nivers -clavulanat 0-15 08-22 respiratory tablet ity of e 00:00: 00:00 infection, (875 mg) [place] (Augmentin) 00 :00 not by mouth 875 mg-125 otherwise twice And erso mg per specified daily. n tablet [facility] amoxicillin 2020-06- No Upper 875mg Take 1 U nivers -clavulanat 0-15 08-22 respiratory tablet ity of e 00:00: 00:00 infection, (875 mg) [place] (Augmentin) 00 :00 not by mouth 875 mg-125 otherwise twice And erso mg per specified daily. 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, MOUTH lung TWICE [place] <Right> DAILY [facility] 2020-06- No Small cell TAKE 1 Univers (NAMENDA) 014 carcinoma, TABLET(10 ity of 10 mg 00:00: 00:00 NOS of MG) BY [place] tablet 00 :00 upper lobe, MOUTH lung TWICE [place] <Right> DAILY [facility] 2021-1 2022- No Small cell TAKE 1 Univers (NAMENDA) 0-12 -14 carcinoma, TABLET(10 ity of 10 mg 00:00: 00:00 NOS of MG) BY [place] tablet 00 :00 upper lobe, MOUTH MD lung TWICE [place] <Right> DAILY [facility] memantine 2020-06- No Small cell TAKE 1 Univers (NAMENDA) 0-12 -14 carcinoma, TABLET(10 ity of 10 mg 00:00: 00:00 NOS of MG) BY [place] tablet 00 :00 upper lobe, MOUTH MD lung TWICE [place] <Right> DAILY [facility] amoxicillin 2020-06- No Upper 875mg Take 1 U nivers -clavulanat 0-09 10-15 respiratory tablet ity of e 00:00: 00:00 infection, (875 mg) [place] (Augmentin) 00 :00 not by mouth 875 mg-125 otherwise twice And erso mg per specified daily. n tablet [facility] amoxicillin 2020-06- No Upper 875mg Take 1 U nivers -clavulanat 0-09 10-15 respiratory tablet ity of e 00:00: 00:00 infection, (875 mg) [place] (Augmentin) 00 :00 not by mouth 875 mg-125 otherwise twice And erso mg per specified daily. tablet [facility] pantoprazol 2021- No Aspiration 40mg Take 1 Univers e 03-29 into lower tablet (40 it y of (PROTONIX) 00:00: 00:00 respiratory mg) by [place] 40 mg EC 00 :00 tract mouth tablet daily. [facility] pantoprazol 2021- No Aspiration 40mg Take 1 Univers e 03-29 into lower tablet (40 it y of (PROTONIX) 00:00: 00:00 respiratory mg) by [place] 40 mg EC 00 :00 tract mouth tablet daily. [facility] pantoprazol 2021- No Aspiration 40mg Take 1 Univers e 03-29 into lower tablet (40 it y of (PROTONIX) 00:00: 00:00 respiratory mg) by [place] 40 mg EC 00 :00 tract mouth tablet daily. [facility] baclofen 2021-0 2021- No Muscle Take 1/2 Un [place] (LIORESAL) 03-29- spasm of tablet (5 ity of 10 mg 00:00: 00:00 back mg) PO q12 [place] tablet 00 :00 PRN back MD spasm. [facility] baclofen 2020- No Muscle Take 1/2 Un y[place] (LIORESAL) 03-29- spasm of tablet (5 ity of 10 mg 00:00: 00:00 back mg) PO q12 [place] tablet 00 :00 PRN back MD spasm. [facility] baclofen 2020- No Muscle Take 1/2 Un [place] (LIORESAL) 03-29- spasm of tablet (5 ity of 10 mg 00:00: 00:00 back mg) PO q12 [place] tablet 00 :00 PRN back MD spasm. 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 [place] OLANZapine 2020- No Adjustment 2.5mg Take 1 [...] tablet 00 :00 PRN back MD spasm. [facility] baclofen 2020- No Muscle Take 1/2 Un [place] (LIORESAL) 03-08 spasm of tablet (5 ity of 10 mg 00:00: 00:00 back mg) PO q12 [place] tablet 00 :00 PRN back MD spasm. [facility] baclofen 5 2020- No Muscle 5mg Take 5 mg Univers mg tab 03-08 spasm of by mouth ity of 00:00: 00:00 back every 12 [place] 00 :00 (twelve) MD hours. [facility] QUEtiapine 2021- No Aspiration 75mg 3 tablets Univers (SEROquel) 03-07 into lower (75 mg) by ity of 25 mg 00:00: 00:00 respiratory feeding [place] tablet 00 :00 tract tube route at [facility]. [facility] QUEtiapine 2021- No Aspiration 75mg 3 tablets Univers (SEROquel) 03-07 into lower (75 mg) by ity of 25 mg 00:00: 00:00 respiratory feeding [place] tablet 00 :00 tract tube route at [facility]. [facility] QUEtiapine 2021- No Aspiration 75mg 3 tablets Univers (SEROquel) 03-07 into lower (75 mg) by ity of 25 mg 00:00: 00:00 respiratory feeding [place] tablet 00 :00 tract tube route at [facility]. [facility] QUEtiapine 2020- No Aspiration 75mg 3 tablets Univers (SEROquel) 03-06 into lower (75 mg) by ity of 25 mg 00:00: 00:00 respiratory feeding [place] tablet 00 :00 tract tube route at [facility]. [facility] fluconazole 2020- No Acute 100mg Take 1 U nivers (DIFLUCAN) 03-03 kidney tablet ity of 100 mg 00:00: 04:59 injury due (100 mg) [place] tablet 00 :00 to by mouth hypovolemia daily for And erso 12 days. [facility] lidocaine 2021- No Acute 10mL Swish and [...] 8mg Take 1 Univers (ZOFRAN) 8 03-02 02-23 carcinoma tablet (8 ity of mg tablet [...] mouth MD right lung twice Anderso daily. [facility] memantine 2020- No Small cell 10mg Take 1 Univers (Namenda) 03-02 10- carcinoma tablet (10 ity of 10 mg 00:00: 00:00 of upper mg) by [place] tablet 00 :00 lobe of mouth right lung twice Anderso daily. [facility] baclofen 5 2020- No Muscle 5mg Take 5 mg Univers mg tab 03-02 spasm of by mouth ity of 00:00: 00:00 back every 12 [place] 00 :00 (twelve) MD hours. [facility] pantoprazol 2020- No Aspiration 40mg Take 1 Univers e 02-28 into lower tablet (40 it y of (PROTONIX) 00:00: 00:00 respiratory mg) by [place] 40 mg EC 00 :00 tract mouth tablet daily. [facility] pantoprazol 2020- No Aspiration 40mg Take 1 Univers e 02-28 into lower tablet (40 it y of (PROTONIX) 00:00: 00:00 respiratory mg) by [place] 40 mg EC 00 :00 tract mouth tablet daily. [facility] loperamide Yes Aspiration 2mg Take 1 Univers (IMODIUM) 2 8-31 into lower capsule (2 ity of mg capsule 00:00: respiratory mg) by [place] 00 tract mouth MD every 8 [place] (eight) n hours as Cancer needed for Center diarrhea. Buy over the counter loperamide Yes Aspiration 2mg Take 1 Univers (IMODIUM) 2 8-31 into lower capsule (2 ity of mg capsule 00:00: respiratory mg) by [place] [id number] tract mouth MD every 8 [place] (eight) n hours as Cancer needed for Center diarrhea. Buy over the counter loperamide Yes Aspiration 2mg Take 1 Univers (IMODIUM) 2 8-31 into lower capsule (2 ity of mg capsule 00:00: respiratory mg) by [place] [id number] tract mouth MD every 8 [place] (eight) n hours as Cancer needed for Center diarrhea. Buy over the counter loperamide Yes Aspiration 2mg Take 1 Univers (IMODIUM) 2 8-31 into lower capsule (2 ity of mg capsule 00:00: respiratory mg) by [place] [id number] tract mouth MD every 8 [place] (eight) n hours as Cancer needed for Center diarrhea. Buy over the counter loperamide Yes Aspiration 2mg Take 1 Univers (IMODIUM) 2 8-31 into lower capsule (2 ity of mg capsule 00:00: respiratory mg) by [place] [address] tract mouth MD every 8 [place] (eight) n hours as Cancer needed for Center diarrhea. Buy over the counter loperamide Yes Aspiration 2mg Take 1 Univers (IMODIUM) 2 8-31 into lower capsule (2 ity of mg capsule 00:00: respiratory mg) by [place] [id number] tract mouth MD every 8 [place] (eight) n hours as Cancer needed for Center diarrhea. Buy over the counter loperamide Yes Aspiration 2mg Take 1 Univers (IMODIUM) 2 8-31 into lower capsule (2 ity of mg capsule 00:00: respiratory mg) by [place] [id number] tract mouth MD every 8 [place] (eight) n hours as Cancer needed for Center diarrhea. Buy over the counter loperamide Yes Aspiration 2mg Take 1 Univers (IMODIUM) 2 8-31 into lower capsule (2 ity of mg capsule 00:00: respiratory mg) by [place] [id number] tract mouth MD every 8 [place] (eight) n hours as Cancer needed for Center diarrhea. Buy over the counter loperamide Yes Aspiration 2mg Take 1 Univers (IMODIUM) 2 8-31 into lower capsule (2 ity of mg capsule 00:00: respiratory mg) by [place] 00 tract mouth MD every 8 [place]o [...] Aspiration 2{tbl} Take 2 U nivers (SENOKOT) 8 05-17 into lower tablets by ity of 8.6 mg 00:00: 00:00 respiratory mouth 2 [place] tablet 00 :00 tract (two) MD times a Anderso day as n needed for Cancer constipati Center on. Buy over the counter senna 2021- No Aspiration 2{tbl} Take 2 U nivers (SENOKOT) 8 05-17 into lower tablets by ity of 8.6 mg 00:00: 00:00 respiratory mouth 2 [place] tablet 00 :00 tract (two) MD times a Anderso day as n needed for Cancer constipati Center on. Buy over the counter oral 2021- No Aspiration 1{appli Apply 1 Univers mucosal 8-27 into lower cation} applicatio ity of (BIOTENE) 00:00: 00:00 respiratory n to the [place] gel 00 :00 tract mouth or MD throat as [place] needed for n dry mouth. Cancer Buy over Center the counter. use as directed oral 2021- No Aspiration 1{appli Apply 1 Univers mucosal 8- 04-27 into lower cation} applicatio ity of (BIOTENE) 00:00: 00:00 respiratory n to the [place] gel 00 :00 tract mouth or MD throat as [place] needed for n dry mouth. Cancer Buy over Center the counter. use as directed oral 2021- No Aspiration 1{appli Apply 1 [facility] mucosal 8 04-27 into lower cation} applicatio ity of (BIOTENE) 00:00: 00:00 respiratory n to the [place] gel 00 :00 tract mouth or MD throat as [place] needed for n dry mouth. Cancer Buy over Center the counter. use as directed oral 2021- No Aspiration 1{appli Apply 1 Univers mucosal 8- 04-27 into lower cation} applicatio ity of [...] No Other 50mg Inject 0.5 Univers (Lovenox) 02-2711 pulmonary mL (50 mg) ity of 60 mg/0.6 00:00: 00:00 embolism under the [place] mL 00 :00 with acute skin every MD prefilled cor 12 Anderso syringe pulmonale (twelve) n hours. [facility] enoxaparin 2021- No Other 50mg Inject 0.5 Univers (Lovenox) 02-2711 pulmonary mL (50 mg) ity of 60 mg/0.6 00:00: 00:00 embolism under the [place] mL 00 :00 with acute skin every MD prefilled cor 12 [place] syringe pulmonale (twelve) n hours. [facility] enoxaparin 2021- No Other 50mg Inject 0.5 Univers (Lovenox) 02-2711 pulmonary mL (50 mg) ity of 60 mg/0.6 00:00: 00:00 embolism under the [place] mL 00 :00 with acute skin every MD prefilled cor 12 [place] syringe pulmonale (twelve) n hours. [facility] enoxaparin 2021- No Other 50mg Inject 0.5 Univers (Lovenox) 02-2711 pulmonary mL (50 mg) ity of 60 mg/0.6 00:00: 00:00 embolism under the [place] mL 00 :00 with acute skin every MD prefilled cor 12 [place] syringe pulmonale (twelve) n hours. [facility] enoxaparin 2021- No Other 50mg Inject 0.5 Univers (Lovenox) 02-27 03-11 pulmonary mL (50 mg) ity of 60 [...] tablet hours as n needed Cancer (pain). [place] OLANZapine 2020- No Adjustment 2.5mg Take 1 [...] tablet hours as n needed Cancer (pain). [facility] Yes Aspiration 1{tbl} Take 1 Univers n tab 7-23 into lower tablet by ity of tablet 00:00: respiratory mouth [place] 00 tract daily. MD [facility] Yes Aspiration 1{tbl} Take 1 Univers n tab 7-23 into lower tablet by ity of tablet 00:00: respiratory mouth [place] 00 tract daily. MD [facility] Yes Aspiration 1{tbl} Take 1 Univers n tab 7-23 into lower tablet by ity of tablet 00:00: respiratory mouth [place] 00 tract daily. MD [facility] Yes Aspiration 1{tbl} Take 1 Univers n tab 7-23 into lower tablet by ity of tablet 00:00: respiratory mouth [place] 00 tract daily. MD [facility] Yes Aspiration 1{tbl} Take 1 Univers n tab 7-23 into lower tablet by ity of tablet 00:00: respiratory mouth [place] 00 tract daily. MD [facility] Yes Aspiration 1{tbl} Take 1 [facility] n tab 7-23 into lower tablet by ity of tablet 00:00: respiratory mouth [place] 00 tract daily. MD [facility] Yes Aspiration 1{tbl} Take 1 Univers n tab 7-23 into lower tablet by ity of tablet 00:00: respiratory mouth [place] 00 tract daily. MD [facility] Yes Aspiration 1{tbl} Take 1 Univers n tab 7-23 into lower tablet by ity of tablet 00:00: respiratory mouth [place] 00 tract daily. MD [facility] Yes Aspiration 1{tbl} Take 1 Univers n tab 7-23 into lower tablet by ity of tablet 00:00: respiratory mouth [place] 00 tract daily. MD [facility] ferrous 2021- No 1{tbl} Take 1 Unive rs sulfate 325 7-22 05-17 tablet by it y of (65 FE) MG 00:00: 00:00 mouth [place] EC tablet 00 :00 daily. MD [facility] ferrous 2021- No 1{tbl} Take 1 Unive rs sulfate 325 7-22 05-17 tablet by it y of (65 FE) MG 00:00: 00:00 mouth [place] EC tablet 00 :00 daily. MD [facility] ferrous 2021- No 1{tbl} Take 1 Unive rs sulfate 325 7-22 05-17 tablet by it y of (65 FE) MG 00:00: 00:00 mouth [place] EC tablet 00 :00 daily. MD [facility] ferrous 2021- No 1{tbl} Take 1 Unive rs sulfate 325 7-22 05-17 tablet by it y of (65 FE) MG 00:00: 00:00 mouth [place] EC tablet 00 :00 daily. MD [facility] ferrous 2021- No 1{tbl} Take 1 Unive rs sulfate 325 7-22 05-17 tablet by it y of (65 FE) MG 00:00: 00:00 mouth [place] EC tablet 00 :00 daily. MD [facility] ferrous 2021- No 1{tbl} Take 1 Unive rs sulfate 325 7-22 05-17 tablet by it y of (65 FE) MG 00:00: 00:00 mouth [place] EC tablet 00 :00 daily. MD [facility] ferrous 2021- No 1{tbl} Take 1 Unive rs sulfate 325 7-22 05-17 tablet by it y of (65 FE) MG 00:00: 00:00 mouth [place] EC tablet 00 :00 daily. MD Fuentes [facility] 2021- No 1{tbl} Take 1 Unive rs sulfate 325 7- 05-17 tablet by it y of (65 FE) MG 00:00: 00:00 mouth [place] EC tablet 00 :00 daily. 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 [facility] ipratropium 2021- No Pneumocysto USE 1 VIAL Univers -albuterol 11-30 04-27 sis VIA ity of (DUO-NEB) 00:00: 00:00 pneumonia NEBULIZER [place] 0.5 mg-2.5 00 :00 EVERY 6 MD mg/3 mL HOURS Anderso nebulizer NEEDED FOR n solution WHEEZING Cancer OR Center SHORTNESS OF BREATH FOR UP TO 30 DAYS ipratropium 2020-2021- No Pneumocysto USE 1 VIAL [facility] -albuterol [...] BREATH FOR UP TO 30 DAYS ipratropium 2020-2021- No Pneumocysto USE 1 VIAL Univers -albuterol 6-10-24 sis VIA ity of (DUO-NEB) 00:00: 00:00 pneumonia NEBULIZER [place] 0.5 mg-2.5 00 :00 EVERY 6 MD mg/3 mL HOURS [place] nebulizer NEEDED FOR n solution WHEEZING Cancer OR Center SHORTNESS OF BREATH FOR UP TO 30 DAYS ipratropium 2021- No Pneumocysto USE 1 VIAL Univers -albuterol 6-03 04-27 sis VIA ity of (DUO-NEB) 00:00: 00:00 pneumonia NEBULIZER [place] 0.5 mg-2.5 00 :00 EVERY 6 MD mg/3 mL HOURS Anders[place] nebulizer NEEDED FOR n solution WHEEZING Cancer OR Center SHORTNESS OF BREATH FOR UP TO 30 DAYS [email or web address] 2021- No Tube 250mL Give 250 Univers ired 5-21 -11 feeding mL per ity of digestive 00:00: 00:00 diet G-tube 3 [place] as fxn 00 :00 (three) MD (peptamen times a [place] 1.5) day. n enteral Cancer tube Center feeding [email or web address] 2021- No Tube 250mL Give 250 Univers ired 5-21 -11 feeding mL per ity of digestive [...] No Emphysema 600mg Take 1 Univers (MUCINEX) 4-11 04-12 tablet ity of 600 mg 12 00:00: 04:59 (600 mg) [place] as hr tablet 00 :00 by mouth MD every 12 [place] (twelve) n hours. [email or web address] 2021- No Emphysema 600mg Take 1 Univers (MUCINEX) 10-08 tablet ity of 600 mg 12 00:00: 04:59 (600 mg) [place] as hr tablet 00 :00 by mouth MD every 12 [place] (twelve) n hours. [email or web address] 2021- No Emphysema 600mg Take 1 Univers (MUCINEX) 10-08 tablet ity of 600 mg 12 00:00: 04:59 (600 mg) Gio as hr tablet 00 :00 by mouth MD every 12 Anderso (twelve) n hours. [email or web address] 2021- No Emphysema 600mg Take 1 Univers (MUCINEX) 10-08 tablet ity of 600 mg 12 00:00: 04:59 (600 mg) Gio as hr tablet 00 :00 by mouth MD every 12 Anderso (twelve) n hours. [email or web address] 2021- No Emphysema 600mg Take 1 Univers (MUCINEX) 10-08 tablet ity of 600 mg 12 00:00: 04:59 (600 mg) Gio as hr tablet 00 :00 by mouth MD every 12 Anderso (twelve) n hours. [email or web address] 2021- No Emphysema 600mg Take 1 Univers (MUCINEX) 10-08 tablet ity of 600 mg 12 00:00: 04:59 (600 mg) Gio as hr tablet 00 :00 by mouth MD every 12 Anderso (twelve) n hours. [email or web address] 2021- No Emphysema 600mg Take 1 Univers (MUCINEX) 10-08 tablet ity of 600 mg 12 00:00: 04:59 (600 mg) Gio as hr tablet 00 :00 by mouth MD every 12 Anderso (twelve) n hours. 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 Bakari o ia n [facility] Yes Type 2 1{each} 1 each by [facility] 10-06 diabetes miscellane ity o f 00:[place] with twice MD hyperglycem daily. Bakari zimmerman [facility] lancets Yes Type 2 1{each} 1 each by [facility] 10-06 diabetes miscellane ity o f 00:[place] with twice MD hyperglycem daily. Bakari zimmerman [facility] lancets Yes Type 2 1{each} 1 each by [facility] 10-06 diabetes miscellane ity o f 00:[place] with twice MD hyperglycem daily. Bakari zimmerman [facility] lancets Yes Type 2 1{each} 1 each by [facility] 10-06 diabetes miscellane ity o f 00:[place]: [place] with twice MD hyperglycem daily. Bakari zimmerman [facility] lancets Yes Type 2 1{each} 1 each by [facility] 10-06 diabetes miscellane ity o f 00:[place]: [place] with twice MD hyperglycem daily. Bakari zimmerman [facility] lancets Yes Type 2 1{each} 1 each by [facility] 10-06 diabetes miscellane ity o f 00:[place]: [place] with twice MD hyperglycem daily. Bakari zimmerman [facility] lancets Yes Type 2 1{each} 1 each by [facility] 10-06 diabetes miscellane ity o f 00:[place]: [place] with twice MD hyperglycem daily. Bakari zimmerman [facility] lancets Yes Type 2 1{each} 1 each by [facility] 10-06 diabetes miscellane ity o f 00:[place]: [place] with twice MD hyperglycem daily. Bakari zimmerman [facility] Immunizations Ordered Immunization Filled Immunization Date Status Commen ts Source Name Name Pneumococcal 2022-03-24 Completed University o f Polysaccharide 00:00:[address] [facility] Pneumococcal 2022-03-24 Completed University o f Polysaccharide 00:00:00 [place] MD Isaac oDm [facility] Pneumococcal 2022-03-24 Completed [facility] o f Polysaccharide 00:00[place] Pneumococcal 2022-03-24 Completed University o f Polysaccharide 00:00[place] remdesivir 2020-08-22 Completed [facility] 00:00:00 [place] [facility] [place] remdesivir 2020-08-22 Completed [facility] of 00:00:00 [place] [facility] [place] remdesivir 2020-08-22 Completed [facility] of 00:00:00 [place] [facility] remdesivir 2020-08-22 Completed [facility] of 00:00:00 [place] [facility] remdesivir 2020-08-22 Completed [facility] of 00:00:00 [place] [facility] [place] remdesivir 2020-08-22 Completed [facility] of 00:00:00 [place] [facility] remdesivir 2020-08-22 Completed [facility] of 00:00:00 [place] [facility] remdesivir 2020-08-22 Completed [facility] of 00:00:00 [place] [facility] remdesivir 2020-08-22 Completed University of 00:00:[address] [place] [facility] remdesivir 2020-08-22 Completed University of 00:00:00 [place] [facility] [place] remdesivir 2020-08-22 Completed [facility] of 00:00:00 [place] [facility] [place] remdesivir 2020-08-22 Completed [facility] of 00:00:00 [place] [facility] [place] remdesivir 2020-08-22 Completed [facility] of 00:00:00 [place] [facility] remdesivir 2020-08-22 Completed [facility] of 00:00:00 [place] [facility] [place] remdesivir 2020-08-22 Completed [facility] 00[place]00:00 [place] [facility] [place] remdesivir 2020-08-22 Completed [facility] of 00:00:00 [place] [facility] [place] remdesivir 2020-08-22 Completed [facility] 00:00:00 [place] [facility] [place] remdesivir 2020-08-22 Completed [facility] 00:00:00 [place] [facility] [place] remdesivir 2020-08-21 Completed [facility] 00:00:00 [place] [facility] remdesivir 2020-08-21 Completed [facility] 00:00:00 [place] [facility] remdesivir 2020-08-21 Completed [facility] 00:00:00 [place] [facility] remdesivir 2020-08-21 Completed [facility] 00:00:00 [place] [facility] remdesivir 2020-08-21 Completed [facility] 00:00:00 [place] [facility] remdesivir 2020-08-21 Completed [facility] 00:00:00 [place] [facility] remdesivir 2020-08-21 Completed [facility] 00:00:00 [place] [facility] remdesivir 2020-08-21 Completed [facility] 00:00:00 [place] [facility] remdesivir 2020-08-21 Completed [facility] 00:00:00 [place] [facility] remdesivir 2020-08-20 Completed [facility] 00:00:00 [place] [facility] remdesivir 2020-08-20 Completed [facility] 00:00:00 [place] [facility] remdesivir 2020-08-20 Completed [facility] 00:00:00 [place] [facility] remdesivir 2020-08-20 Completed [facility] 00:00:00 [place] [facility] remdesivir 2020-08-20 Completed [facility] 00:00:00 [place] [facility] remdesivir 2020-08-20 Completed [facility] 00:00:00 [place] [facility] remdesivir 2020-08-20 Completed [facility] of 00:00:00 [place] [facility] remdesivir 2020-08-20 Completed [facility] 00:00:00 [place] [facility] remdesivir 2020-08-20 Completed [facility] 00:00:00 [place] [facility] remdesivir 2020-08-19 Completed [facility] 00:00:00 [place] [facility] remdesivir 2020-08-19 Completed [facility] of 00:00:00 [place] [facility] remdesivir 2020-08-19 Completed [facility] 00:00:00 [place] [facility] remdesivir 2020-08-19 Completed [facility] of 00:00:00 [place] [facility] remdesivir 2020-08-19 Completed [facility] of 00:00:00 [place] [facility] remdesivir 2020-08-19 Completed [facility] of 00:00:00 [place] [facility] remdesivir 2020-08-19 Completed [facility] of 00:00:00 [place] [facility] remdesivir 2020-08-19 Completed [facility] of 00:00:00 [place] [facility] remdesivir 2020-08-19 Completed [facility] of 00:00:00 [place] [facility] remdesivir 2020-08-18 Completed [facility] of 00:00:00 [place] [facility] remdesivir 2020-08-18 Completed [facility] of 00:00:00 [place] [facility] remdesivir 2020-08-18 Completed [facility] of 00:00:00 [place] [facility] remdesivir 2020-08-18 Completed [facility] of 00:00:00 [place] [facility] remdesivir 2020-08-18 Completed [facility] of 00:00:00 [place] [facility] remdesivir 2020-08-18 Completed [facility] of 00:00:00 [place] [facility] remdesivir 2020-08-18 Completed [facility] of 00:00:00 [place] [facility] remdesivir 2020-08-18 Completed [facility] of 00:00:00 [place] [facility] remdesivir 2020-08-18 Completed [facility] of 00:00:00 [place] [facility] remdesivir 2020-08-03 Completed [facility] of 00:00:00 [place] [facility] remdesivir 2020-08-03 Completed [facility] of 00:00:00 [place] [facility] remdesivir 2020-08-03 Completed [facility] of 00:00:00 [place] [facility] remdesivir 2020-08-03 Completed [facility] of 00:00:00 [place] [facility] remdesivir 2020-08-03 Completed [facility] of 00:00:00 [place] [facility] remdesivir 2020-08-03 Completed [facility] of 00:00:00 [place] [facility] remdesivir 2020-08-03 Completed [facility] of 00:00:00 [place] [facility] remdesivir 2020-08-03 Completed [facility] 00:00:00 [place] [facility] remdesivir 2020-08-03 Completed [facility] of 00:00:00 [place] [facility] remdesivir 2020-08-02 Completed [facility] 00:00:00 [place] [facility] remdesivir 2020-08-02 Completed [facility] 00:00:00 [place] [facility] remdesivir 2020-08-02 Completed [facility] 00:00:00 [place] [facility] remdesivir 2020-08-02 Completed [facility] 00:00:00 [place] [facility] remdesivir 2020-08-02 Completed [facility] 00:00:00 [place] [facility] remdesivir 2020-08-02 Completed [facility] 00:00:00 [place] [facility] [place] remdesivir 2020-08-02 Completed [facility] 00:00:00 [place] [facility] remdesivir 2020-08-02 Completed [facility] 00:00:00 [place] [facility] remdesivir 2020-08-02 Completed [facility] 00:00:00 [place] [facility] remdesivir 2020-08-02 Completed [facility] 00:00:00 [facility] remdesivir 2020-08-02 Completed [facility] 00:00:00 [facility] remdesivir 2020-08-02 Completed [facility] 00:00:00 [place] [facility] remdesivir 2020-08-02 Completed [facility] 00:00:00 [facility] remdesivir 2020-08-02 Completed [facility] of 00:00:00 [place] [facility] remdesivir 2020-08-02 Completed [facility] 00:00:00 [facility] remdesivir 2020-08-02 Completed [facility] 00:00:00 [place] [facility] remdesivir 2020-08-02 Completed [facility] 00:00:00 [facility] remdesivir 2020-08-02 Completed [facility] 00:00:00 [place] [facility] remdesivir 2020-08-01 Completed [facility] 00:00:00 [place] [facility] remdesivir 2020-08-01 Completed [facility] 00:00:00 [place] [facility] remdesivir 2020-08-01 Completed [facility] 00:00:00 [place] [facility] remdesivir 2020-08-01 Completed [facility] 00:00:00 [place] [facility] remdesivir 2020-08-01 Completed [facility] 00:00:00 [place] [facility] remdesivir 2020-08-01 Completed [facility] 00:00:00 [place] [facility] remdesivir 2020-08-01 Completed [facility] 00:00:00 [place] [facility] [place] remdesivir 2020-08-01 Completed [facility] 00:00:00 [place] [facility] remdesivir 2020-08-01 Completed [facility] 00:00:00 [place] [facility] [place] remdesivir 2020-07-31 Completed [facility] 00:00:00 [place] [facility] remdesivir 2020-07-31 Completed [facility] 00:00:00 [place] [facility] [place] remdesivir 2020-07-31 Completed [facility] 00:00:00 [place] [facility] [place] remdesivir 2020-07-31 Completed [facility] 00:00:00 [facility] remdesivir 2020-07-31 Completed [facility] 00:00:00 [facility] remdesivir 2020-07-31 Completed [facility] 00:00:00 [facility] remdesivir 2020-07-31 Completed [facility] 00:00:00 [place] [facility] remdesivir 2020-07-31 Completed [facility] 00:00:00 [place] [facility] remdesivir 2020-07-31 Completed [facility] 00:00:00 [place] [facility] remdesivir 2020-07-30 Completed [facility] 00:00:00 [place] [facility] remdesivir 2020-07-30 Completed [facility] 00:00:00 [place] [facility] [place] remdesivir 2020-07-30 Completed [facility] 00:00:00 [facility] remdesivir 2020-07-30 Completed [facility] of 00:00:00 [place] Isaac [facility] remdesivir 2020-07-30 Completed University of 00:00:00 [place] MD Iasac [facility] remdesivir 2020-07-30 Completed [facility] of 00:00:00 [place] MD Isaac [facility] remdesivir 2020-07-30 Completed University of 00:00:00 [place] MD Isaac [facility] remdesivir 2020-07-30 Completed University of 00:00:00 [place] MD Isaac [facility] remdesivir 2020-07-30 Completed [facility] of 00:00:00 [place] Isaac [facility] Influenza Split High 2020-03-29 Completed Univ ersity of Dose Preservative 00:00:00 [place] M D Free [facility] Zoster Recombinant 2020-03-29 Completed Univer sity of 00:00:[address] [facility] Influenza Split High 2020-03-29 Completed Univ ersity of Dose Preservative 00:00:00 [place] [facility] Zoster Recombinant 2020-03-29 Completed Univer sity of 00:00:[address] [facility] Influenza Split High 2020-03-29 Completed Univ ersity of Dose Preservative 00:00:00 [place] [facility] Zoster Recombinant 2020-03-29 Completed Univer sity of 00:00:[address] [facility] Influenza Split High 2020-03-29 Completed Univ ersity of Dose Preservative 00:00:00 [place] [facility] Zoster Recombinant 2020-03-29 Completed Univer sity of 00:00:[address] [facility] Influenza Split High 2020-03-29 Completed Univ ersity of Dose Preservative 00:00:00 [place] [facility] Zoster Recombinant 2020-03-29 Completed Univer sity of 00:00:[address] [facility] Influenza Split High 2020-03-29 Completed Univ ersity of Dose Preservative 00:00:00 [place] M D Free [facility] Zoster Recombinant 2020-03-29 Completed Univer sity of 00:00:[address] [facility] Influenza Split High 2020-03-29 Completed Univ ersity of Dose Preservative 00:00:00 [place] M D Free [facility] Zoster Recombinant 2020-03-29 Completed Univer sity of 00:00:00 [place] [facility] Influenza Split High 2020-03-29 Completed Univ ersity of Dose Preservative 00:00:00 [place] M D Free [facility] Zoster Recombinant 2020-03-29 Completed Univer sity of 00:00:00 [place] MD [facility] Influenza Split High 2020-03-29 Completed Univ ersity of Dose Preservative 00:00:00 [place] M D Free IM [facility] Zoster Recombinant 2020-03-29 Completed Univer sity of 00:00:00 [place] [facility] [place] Vital Signs Vital Name Observation Time Observation [...] /min [facility] Arterial blood by [facility] Body weight 2022-06-07 [...] /min [facility] Arterial blood by Willis [facility] Body temperature 2021-10-24 16:48:00 36.89 Lizabeth [facility] Body weight 2021-10-24 09:00:00 55 kg [facility] BMI 2021-10-24 09:00:00 19.57 kg/m2 [facility] Body height 2021-10-15 14:57:00 167.6 cm [facility] Procedures Procedure Date / Time Performing Clinician Source Performed CT CHEST W CONTRAST 2022-09-13 13:57:00 Stella Clark [facility] POC CREATININE 2022-09-13 13:38:00 Stella Clark [facility] COMPLETE BLOOD COUNT W/ 2022-09-13 13:10:00 [facility] COMPREHENSIVE METABOLIC 2022-09-13 13:10:00 [facility] Results CBC 2022-09-13 13:10:00 [place] Fernanda [place] [facility] MANUAL DIFFERENTIAL 2022-09-13 13:10:00 [place] Fernanda [place] [facility] GLUCOSE LEVEL 2022-09-13 13:10:00 [place] Fernanda [place] [facility] BLOOD UREA NITROGEN 2022-09-13 13:10:00 [place] Fernanda [place] [facility] ELECTROLYTE PANEL 2022-09-13 13:10:00 [place] Fernanda [place] [facility] SERUM CREATININE 2022-09-13 13:10:00 [place] Fernanda [place] [facility] .GLOMERULAR FILTRATION 2022-09-13 13:10:00 [facility] [place] [facility] CALCIUM LEVEL TOTAL 2022-09-13 13:10:00 [place] Fernanda [place] [facility] ALBUMIN LEVEL 2022-09-13 13:10:00 [place] Fernanda [place] [facility] ALKALINE PHOSPHATASE 2022-09-13 13:10:00 [place] [facility] ALANINE AMINOTRANSFERASE 2022-09-13 13:10:00 [place] Fernanda [place] [facility] ASPARTATE AMINOTRANSFERASE 2022-09-13 13:10:00 Maria Fernanda [place] [facility] TOTAL PROTEIN 2022-09-13 13:10:00 [place] Fernanda [place] [facility] FRACTIONATED BILIRUBIN 2022-09-13 13:10:00 [place]anda [place] [facility]PLETE BLOOD COUNT W/ 2022-06-07 15:54:00 Stella Clark Un iversity [facility] [place] DIFFERENTIAL [facility] COMPREHENSIVE METABOLIC 2022-06-07 15:54:00 [facility] FREE THYROXINE 2022-06-07 15:54:00 Stella Clark [facility] MAGNESIUM LEVEL 2022-06-07 15:54:00 Stella Clark [facility] TOTAL T3 2022-06-07 15:54:00 Stella Clark [facility] THYROID STIMULATING 2022-06-07 15:54:00 Stella Clark [facility] HORMONE [facility] URIC ACID 2022-06-07 15:54:00 Stella Clark [facility] Results CBC 2022-06-07 15:54:00 Stella Clark [facility] MANUAL DIFFERENTIAL 2022-06-07 15:54:00 Stella Clark [facility] GLUCOSE LEVEL 2022-06-07 15:54:00 Stella Clark [facility] BLOOD UREA NITROGEN 2022-06-07 15:54:00 Stella Clark [facility] SERUM CREATININE 2022-06-07 15:54:00 Stella Clark [facility] .GLOMERULAR FILTRATION 2022-06-07 15:54:00 [facility] CALCIUM LEVEL TOTAL 2022-06-07 15:54:00 Stella Clark [facility] ALBUMIN LEVEL 2022-06-07 15:54:00 Stella Clark [facility] ALKALINE PHOSPHATASE 2022-06-07 15:54:00 [facility] ALANINE AMINOTRANSFERASE 2022-06-07 15:54:00 Stella Clark [facility] ASPARTATE AMINOTRANSFERASE 2022-06-07 15:54:00 Stella Clark [facility] TOTAL PROTEIN 2022-06-07 15:54:00 Stella Clark [facility] FRACTIONATED BILIRUBIN 2022-06-07 15:54:00 [facility] ELECTROLYTE PANEL 2022-06-07 15:54:00 Stella Clark [facility] PETCT SUBSEQUENT TREATMENT 2022-06-07 15:27:59 Stella Clark [facility] STRATEGY [facility] COMPLETE BLOOD COUNT W/ 2021-10-24 10:53:00 Tod Glass [facility] DIFFERENTIAL [facility] COMPREHENSIVE METABOLIC 2021-10-24 10:53:00 Tod Glass [facility] PANEL [facility] MAGNESIUM LEVEL 2021-10-24 10:53:00 Tod Glass V. [facility] PHOSPHORUS LEVEL 2021-10-24 10:53:00 Tod Glass V. [facility] Results CBC 2021-10-24 10:53:00 Tod Glass V. [facility] MANUAL DIFFERENTIAL 2021-10-24 10:53:00 Tod Glass [facility]. [facility] GLUCOSE LEVEL 2021-10-24 10:53:00 Tod Glass V. [facility] BLOOD UREA NITROGEN 2021-10-24 10:53:00 Tod Glass [facility]. [facility] ELECTROLYTE PANEL 2021-10-24 10:53:00 Tod Glass V. [facility] SERUM CREATININE 2021-10-24 10:53:00 Tod Glass [facility] .GLOMERULAR FILTRATION 2021-10-24 10:53:00 Tod Glass [facility] RATE [facility] CALCIUM LEVEL TOTAL 2021-10-24 10:53:00 Tod Glass [facility]. [facility] ALBUMIN LEVEL 2021-10-24 10:53:00 Tod Glass V. [facility] ALKALINE PHOSPHATASE 2021-10-24 10:53:00 Tod Glass V. [facility] ALANINE AMINOTRANSFERASE 2021-10-24 10:53:00 Tod Glass [facility] ASPARTATE AMINOTRANSFERASE 2021-10-24 10:53:00 Tod Glass [facility] TOTAL PROTEIN 2021-10-24 10:53:00 Tod Glass V. [facility] FRACTIONATED BILIRUBIN 2021-10-24 10:53:00 [facility] OSCILLATORY PEP 2021-10-23 13:00:13 Tod Glass V. [facility] COMPLETE BLOOD COUNT W/ 2021-10-23 12:28:00 Tod Glass V[facility] DIFFERENTIAL [facility] COMPREHENSIVE METABOLIC 2021-10-23 12:28:00 Tod Glass [facility] PANEL [facility] MAGNESIUM LEVEL 2021-10-23 12:28:00 Tod Glass V. [facility] PHOSPHORUS LEVEL 2021-10-23 12:28:00 Tod Glass V. [facility] Results CBC 2021-10-23 12:28:00 Tod Glass V. [facility] MANUAL DIFFERENTIAL 2021-10-23 12:28:00 Tod Glass V. [facility] GLUCOSE LEVEL 2021-10-23 12:28:00 Tod Glass V. [facility] BLOOD UREA NITROGEN 2021-10-23 12:28:00 Tod Glass V. [facility] ELECTROLYTE PANEL 2021-10-23 12:28:00 Tod Glass V. [facility] SERUM CREATININE 2021-10-23 12:28:00 Tod Glass V. [facility] .GLOMERULAR FILTRATION 2021-10-23 12:28:00 Tod Glass [facility] RATE [facility] CALCIUM LEVEL TOTAL 2021-10-23 12:28:00 Tod Glass V. [facility] ALBUMIN LEVEL 2021-10-23 12:28:00 Tod Glass V. [facility] ALKALINE PHOSPHATASE 2021-10-23 12:28:00 Tod Glass V. [facility] ALANINE AMINOTRANSFERASE 2021-10-23 12:28:00 Tod Glass V. [facility] ASPARTATE AMINOTRANSFERASE 2021-10-23 12:28:00 Tod Glass [facility] TOTAL PROTEIN 2021-10-23 12:28:00 Tod Glass V. [facility] FRACTIONATED BILIRUBIN 2021-10-23 12:28:00 Tod Glass [facility] OSCILLATORY PEP 2021-10-22 19:00:57 Tod Glass V. [facility] [facility] OSCILLATORY PEP 2021-10-22 13:00:14 Tod Glass V. [facility] COMPLETE BLOOD COUNT W/ 2021-10-22 11:48:00 Tod Glass V. [facility] DIFFERENTIAL [facility] COMPREHENSIVE METABOLIC 2021-10-22 11:48:00 Tod Glass V. [facility] MAGNESIUM LEVEL 2021-10-22 11:48:00 Tod Glass V. [facility] PHOSPHORUS LEVEL 2021-10-22 11:48:00 Tod Glass V. [facility] IGG SUBCLASSES, SERUM 2021-10-22 11:48:00 Tod Glass [facility] IMMUNOGLOBULIN G SERUM 2021-10-22 11:48:00 [facility] IMMUNOGLOBULIN A SERUM 2021-10-22 11:48:00 Tod Glass [facility] Results CBC 2021-10-22 11:48:00 Tod Glass V. [facility] MANUAL DIFFERENTIAL 2021-10-22 11:48:00 Tod Glass V. [facility] GLUCOSE LEVEL 2021-10-22 11:48:00 Tod Glass V. [facility] BLOOD UREA NITROGEN 2021-10-22 11:48:00 Tod Glass V. [facility] ELECTROLYTE PANEL 2021-10-22 11:48:00 Tod Glass V. [facility] SERUM CREATININE 2021-10-22 11:48:00 Tod Glass V. [facility] .GLOMERULAR FILTRATION 2021-10-22 11:48:00 Tod Glass [facility] CALCIUM LEVEL TOTAL 2021-10-22 11:48:00 Tod Glass V. [facility] ALBUMIN LEVEL 2021-10-22 11:48:00 Tod Glass V. [facility] ALKALINE PHOSPHATASE 2021-10-22 11:48:00 Tod Glass V. [facility] ALANINE AMINOTRANSFERASE 2021-10-22 11:48:00 Tod Glass V. [facility] ASPARTATE AMINOTRANSFERASE 2021-10-22 11:48:00 [facility] TOTAL PROTEIN 2021-10-22 11:48:00 Tod Glass V. [facility] FRACTIONATED BILIRUBIN 2021-10-22 11:48:00 Tod Glasse [facility] OSCILLATORY PEP 2021-10-22 01:00:11 Tod Glass V. [facility] XR CHEST 1 VW 2021-10-21 20:44:00 Tod Glass V. [facility] BLOODCULTURE 2021-10-21 14:09:00 Tod Glass V. [facility] FUNGAL BLOODCULTURE 2021-10-21 14:09:00 Tod Glass V. [facility] COMPLETE BLOOD COUNT W/ 2021-10-21 11:02:00 Tod Glass V. [facility] DIFFERENTIAL [facility] COMPREHENSIVE METABOLIC 2021-10-21 11:02:00 Tod Glass V. [facility] PANEL [facility] MAGNESIUM LEVEL 2021-10-21 11:02:00 Tod Glass V. [facility] PHOSPHORUS LEVEL 2021-10-21 11:02:00 Tod Glass V. [facility] Results CBC 2021-10-21 11:02:00 Tod Glass V. [facility] MANUAL DIFFERENTIAL 2021-10-21 11:02:00 Tod Glass V. [facility] GLUCOSE LEVEL 2021-10-21 11:02:00 Tod Glass V. [facility] BLOOD UREA NITROGEN 2021-10-21 11:02:00 Tod Glass V. [facility] ELECTROLYTE PANEL 2021-10-21 11:02:00 Tod Glass V. [facility] SERUM CREATININE 2021-10-21 11:02:00 Tod Glass V. [facility] .GLOMERULAR FILTRATION 2021-10-21 11:02:00 Tod Glass [facility] RATE [facility] CALCIUM LEVEL TOTAL 2021-10-21 11:02:00 [facility] ALBUMIN LEVEL 2021-10-21 11:02:00 Tod Glass V. [facility] ALKALINE PHOSPHATASE 2021-10-21 11:02:00 Tod Glass V. [facility] ALANINE AMINOTRANSFERASE 2021-10-21 11:02:00 Tod Glass V. [facility] ASPARTATE AMINOTRANSFERASE 2021-10-21 11:02:00 [facility] TOTAL PROTEIN 2021-10-21 11:02:00 Tod Glass V. [facility] FRACTIONATED BILIRUBIN 2021-10-21 11:02:00 [facility] EKG, 12-LEAD (PORTABLE) 2021-10-21 00:00:00 Tod Glass V. [facility] XR ABDOMEN 1 VW PORTABLE 2021-10-20 19:19:00 Tod Glass V. [facility] OSCILLATORY PEP 2021-10-20 19:00:49 Tod Glass V. [facility] OSCILLATORY PEP 2021-10-20 13:00:11 Tod Glass V. [place] [facility] COMPLETE BLOOD COUNT W/ 2021-10-20 11:10:00 Tod Glass V. [facility] DIFFERENTIAL [facility] COMPREHENSIVE METABOLIC 2021-10-20 11:10:00 Tod Glass V. [facility] PANEL [facility] MAGNESIUM LEVEL 2021-10-20 11:10:00 Tod Glass V. [facility] PHOSPHORUS LEVEL 2021-10-20 11:10:00 Tod Glass V. [facility] Results CBC 2021-10-20 11:10:00 Tod Glass V. [facility] MANUAL DIFFERENTIAL 2021-10-20 11:10:00 Tod Glass V. [facility] GLUCOSE LEVEL 2021-10-20 11:10:00 Tod Glass V. [facility] BLOOD UREA NITROGEN 2021-10-20 11:10:00 Tod Glass V. [facility] ELECTROLYTE PANEL 2021-10-20 11:10:00 Tod Glass V. [facility] SERUM CREATININE 2021-10-20 11:10:00 Tod Glass V. [facility] .GLOMERULAR FILTRATION 2021-10-20 11:10:00 Tod Glass [facility] CALCIUM LEVEL TOTAL 2021-10-20 11:10:00 Tod Glass V. [facility] ALBUMIN LEVEL 2021-10-20 11:10:00 Tod Glass V. [facility] ALKALINE PHOSPHATASE 2021-10-20 11:10:00 Tod Glass V. [facility] ALANINE AMINOTRANSFERASE 2021-10-20 11:10:00 [facility] ASPARTATE AMINOTRANSFERASE 2021-10-20 11:10:00 Tod [facility] TOTAL PROTEIN 2021-10-20 11:10:00 Tod Glass V. [facility] FRACTIONATED BILIRUBIN 2021-10-20 11:10:00 Tod Glass [facility] OSCILLATORY PEP 2021-10-20 01:00:09 Tod Glass V. [facility] OSCILLATORY PEP 2021-10-19 19:00:53 Tod Glass V. [facility] PATHOLOGY BIOPSY 2021-10-19 18:35:00 Edwige Rod [facility] INTERPRETATION [facility] UPPER GASTROINTESTINAL 2021-10-19 18:14:00 Edwige Rod [facility] ENDOSCOPY OF ESOPHAGUS, MD Levi darden Cancer STOMACH, AND DUODENUM WITH Cente r BIOPSY OSCILLATORY PEP 2021-10-19 14:01:42 Tod Glass V. [facility] COMPLETE BLOOD COUNT W/ 2021-10-19 12:18:00 Tod Glass V. [facility] DIFFERENTIAL [facility] COMPREHENSIVE METABOLIC 2021-10-19 12:18:00 Tod Glass V. [facility] PANEL [facility] MAGNESIUM LEVEL 2021-10-19 12:18:00 Tod Glass V. [facility] PHOSPHORUS LEVEL 2021-10-19 12:18:00 Tod Glass V. [facility] Results CBC 2021-10-19 12:18:00 Tod Glass V. [facility] MANUAL DIFFERENTIAL 2021-10-19 12:18:00 Tod Glass V. [facility] GLUCOSE LEVEL 2021-10-19 12:18:00 Tod Glass V. [facility] BLOOD UREA NITROGEN 2021-10-19 12:18:00 Tod Glass V. [facility] ELECTROLYTE PANEL 2021-10-19 12:18:00 Tod Glass V. [facility] SERUM CREATININE 2021-10-19 12:18:00 Tod Glass V. [facility] .GLOMERULAR FILTRATION 2021-10-19 12:18:[address] [facility] RATE [facility] CALCIUM LEVEL TOTAL 2021-10-19 12:18:00 Tod Glass V. [facility] ALBUMIN LEVEL 2021-10-19 12:18:00 Tod Glass V. [facility] ALKALINE PHOSPHATASE 2021-10-19 12:18:00 Tod Glass V. [facility] ALANINE AMINOTRANSFERASE 2021-10-19 12:18:00 [facility] ASPARTATE AMINOTRANSFERASE 2021-10-19 12:18:00 [facility] TOTAL PROTEIN 2021-10-19 12:18:00 Tod Glass V. [facility] FRACTIONATED BILIRUBIN 2021-10-19 12:18:00 Tod Glass V. [facility] XR CHEST 1 VW 2021-10-18 21:15:00 Tod Glass V. [facility] POC GLUCOSE SCREEN 2021-10-18 11:47:00 Tod Glass V. [facility] COMPLETE BLOOD COUNT W/ 2021-10-18 09:25:00 Tod Glass V. [facility] DIFFERENTIAL [facility] COMPREHENSIVE METABOLIC 2021-10-18 09:25:00 Tod Glass V. [facility] PANEL [facility] MAGNESIUM LEVEL 2021-10-18 09:25:00 Tod Glass V. [facility] PHOSPHORUS LEVEL 2021-10-18 09:25:00 Tod Glass V. [facility] Results CBC 2021-10-18 09:25:00 Tod Glass V. [facility] MANUAL DIFFERENTIAL 2021-10-18 09:25:00 Tod Glass V. [facility] GLUCOSE LEVEL 2021-10-18 09:25:00 Tod Glass V. [facility] BLOOD UREA NITROGEN 2021-10-18 09:25:00 Tod Glass V. [facility] ELECTROLYTE PANEL 2021-10-18 09:25:00 Tod Glass V. [facility] SERUM CREATININE 2021-10-18 09:25:00 Tod Glass V. [facility] .GLOMERULAR FILTRATION 2021-10-18 09:25:00 Tod Glass [facility] CALCIUM LEVEL TOTAL 2021-10-18 09:25:00 Tod Glass V. [facility] ALBUMIN LEVEL 2021-10-18 09:25:00 Tod Glass V. [facility] ALKALINE PHOSPHATASE 2021-10-18 09:25:00 Tod Glass V. [facility] ALANINE AMINOTRANSFERASE 2021-10-18 09:25:00 Tod Glass V. [facility] ASPARTATE AMINOTRANSFERASE 2021-10-18 09:25:00 Tod Glass V. U [facility] TOTAL PROTEIN 2021-10-18 09:25:00 Tod Glass V. [facility] FRACTIONATED BILIRUBIN 2021-10-18 09:25:00 [facility] OSCILLATORY PEP 2021-10-18 07:00:10 Tod Glass V. [facility] OSCILLATORY PEP 2021-10-18 01:00:07 Tod Glass V. [facility] OSCILLATORY PEP 2021-10-17 19:01:02 Tod Glass V. [facility] VANCOMYCIN LEVEL TROUGH 2021-10-17 16:50:00 Tod Glass V. [facility] OSCILLATORY PEP 2021-10-17 14:31:30 Tod Glass V. [facility] FUNGITELL, SERUM 2021-10-17 08:59:00 Tod Glass V. [facility] COMPLETE BLOOD COUNT W/ 2021-10-17 08:59:00 Tod Glass V. [facility] DIFFERENTIAL [facility] COMPREHENSIVE METABOLIC 2021-10-17 08:59:00 Tod Glass V. [facility] PANEL [facility] MAGNESIUM LEVEL 2021-10-17 08:59:00 Tod Glass V. [facility] PHOSPHORUS LEVEL 2021-10-17 08:59:00 Tod Glass V. [facility] Results CBC 2021-10-17 08:59:00 Tod Glass V. [facility] MANUAL DIFFERENTIAL 2021-10-17 08:59:00 Tod Glass V. [facility] GLUCOSE LEVEL 2021-10-17 08:59:00 Tod Glass V. [facility] BLOOD UREA NITROGEN 2021-10-17 08:59:00 Tod Glass V. [facility] ELECTROLYTE PANEL 2021-10-17 08:59:00 Tod Glass V. [facility] SERUM CREATININE 2021-10-17 08:59:00 Tod Glass V. [facility] .GLOMERULAR FILTRATION 2021-10-17 08:59:[address] [facility] RATE [facility] CALCIUM LEVEL TOTAL 2021-10-17 08:59:00 Tod Glass V. [facility] ALBUMIN LEVEL 2021-10-17 08:59:00 Tod Glass V. [facility] ALKALINE PHOSPHATASE 2021-10-17 08:59:00 Tod Glass V. [facility] ALANINE AMINOTRANSFERASE 2021-10-17 08:59:00 Tod Glass V. [facility] ASPARTATE AMINOTRANSFERASE 2021-10-17 08:59:00 [facility] TOTAL PROTEIN 2021-10-17 08:59:00 Tod Glass V. [place] [facility] FRACTIONATED BILIRUBIN 2021-10-17 08:59:00 Tod Glass V. Unive [facility] PROCALCITONIN 2021-10-17 08:59:00 Tod Glass V. [place] [facility] [place] MODIFIED BARIUM SWALLOW 2021-10-16 19:57:25 [facility]CH [facility] RESPIRATORY VIRAL PANEL, 2021-10-16 13:05:00 Tod Glass V. [facility] [place] NASOPHARYNGEAL SWAB [facility] RESPIRATORY PCR PANEL, ASSOCIATE FINANCIAL ANALYST 2021-10-16 13:05:00 Tod Glass V. [facility] [place] SWAB [facility] RESPIRATORY PCR PANEL PATH 2021-10-16 13:05:00 [facility] RE[facility] MRSA SCREENING CULTURE 2021-10-15 21:25:00 [facility] TROPONIN T 2021-10-15 18:15:00 Bijan Verónica [place] [facility] CT CHEST PULMONARY 2021-10-15 17:58:06 Verónica Thakkar [facility] EMBOLISM CONTRAST [facility] LEGIONELLA URINE ANTIGEN 2021-10-15 17:17:00 Verónica Thakkar [facility] STREPTOCOCCUS PNEUMONIAE 2021-10-15 17:17:00 Bijan Verónica [facility] URINE ANTIGEN [facility] STREPTOCOCCAL URINE 2021-10-15 17:17:00 Bijan Verónica [facility] ANTIGEN PATH REVIEW [facility] LEGIONELLA URINE ANTIGEN 2021-10-15 17:17:00 Verónica Thakkar [facility] FUNGITELL, SERUM 2021-10-15 16:43:00 Bijan [facility] COVID-19 (SARS-COV-2) 2021-10-15 15:08:00 Verónica Thakkar [facility] ASYMPTOMATIC-LT [facility] BLOODCULTURE 2021-10-15 15:08:00 Bijan [facility] LOWER RESPIRATORY CULTURE 2021-10-15 15:08:00 [facility]ica [facility] GRAM STAIN [facility] COMPREHENSIVE METABOLIC 2021-10-15 15:08:00 Bijan Verónica [facility] PANEL [facility] MAGNESIUM LEVEL 2021-10-15 15:08:00 Bijan [facility] PHOSPHORUS LEVEL 2021-10-15 15:08:00 Bijan [facility] LACTATE DEHYDROGENASE 2021-10-15 15:08:[address] [facility] PROCALCITONIN 2021-10-15 15:08:00 Bijan [facility] TROPONIN T 2021-10-15 15:08:00 Bijan [facility] CREATINE KINASE 2021-10-15 15:08:00 Bijan [facility] CKMB 2021-10-15 15:08:00 Bijan [facility] NT PRO BNP 2021-10-15 15:08:00 Bijan [facility] COMPLETE BLOOD COUNT W/ 2021-10-15 15:08:00 Bijan Verónica [facility] DIFFERENTIAL [facility] PROTHROMBIN TIME 2021-10-15 15:08:00 Bijan [facility] APTT 2021-10-15 15:08:00 Bijan [facility] GLUCOSE LEVEL 2021-10-15 15:08:00 Bijan [facility] BLOOD UREA NITROGEN 2021-10-15 15:08:00 Bijan [facility] ELECTROLYTE PANEL 2021-10-15 15:08:00 Bijan [facility] SERUM CREATININE 2021-10-15 15:08:00 Bijan [facility] .GLOMERULAR FILTRATION 2021-10-15 15:08:00 [facility]ica [facility] RATE [facility] CALCIUM LEVEL TOTAL 2021-10-15 15:08:00 Bijan Verónica [facility] ALBUMIN LEVEL 2021-10-15 15:08:00 Bijan [facility] ALKALINE PHOSPHATASE 2021-10-15 15:08:00 Verónica Thakkar [facility] ALANINE AMINOTRANSFERASE 2021-10-15 15:08:00 Verónica Thakkar [facility] ASPARTATE AMINOTRANSFERASE 2021-10-15 15:08:00 [facility] TOTAL PROTEIN 2021-10-15 15:08:00 Bijan [facility] FRACTIONATED BILIRUBIN 2021-10-15 15:08:00 Bijan Verónica [facility] Results CBC 2021-10-15 15:08:00 Bijan [facility] MANUAL DIFFERENTIAL 2021-10-15 15:08:00 Verónica Thakkar [facility] XR CHEST 1 VW 2021-10-15 14:45:00 Bijan [facility] EKG, 12-LEAD (PORTABLE) 2021-10-15 00:00:00 Verónica Thakkar [facility] COMPLETE BLOOD COUNT W/ 2021-09-05 11:48:00 Inez Lagunas [facility] DIFFERENTIAL [facility] COMPREHENSIVE METABOLIC 2021-09-05 11:48:00 Inez Lagunas [facility] [place] PANEL [facility] MAGNESIUM LEVEL 2021-09-05 11:48:00 Bebo, [facility] PHOSPHORUS LEVEL 2021-09-05 11:48:00 Bebo [facility] Results CBC 2021-09-05 11:48:00 Bebo [facility] MANUAL DIFFERENTIAL 2021-09-05 11:48:00 [facility] GLUCOSE LEVEL 2021-09-05 11:48:00 Bebo [facility] o [facility] BLOOD UREA NITROGEN 2021-09-05 11:48:00 Bebo [facility] ELECTROLYTE PANEL 2021-09-05 11:48:00 Bebo [facility] SERUM CREATININE 2021-09-05 11:48:00 Bebo [facility] .GLOMERULAR FILTRATION 2021-09-05 11:48:00 [facility] CALCIUM LEVEL TOTAL 2021-09-05 11:48:00 [facility] ALBUMIN LEVEL 2021-09-05 11:48:00 Bebo [facility] ALKALINE PHOSPHATASE 2021-09-05 11:48:[address] [facility] Univers ity [facility] ALANINE AMINOTRANSFERASE 2021-09-05 11:48:[address] [facility] ASPARTATE AMINOTRANSFERASE 2021-09-05 11:48:00 Inez Lagunas [facility] TOTAL PROTEIN 2021-09-05 11:48:00 Inez Lagunas [place] [facility] FRACTIONATED BILIRUBIN 2021-09-05 11:48:00 Inez Lagunas [facility] STREPTOCOCCUS PNEUMONIAE 2021-09-04 19:38:00 Inez Lagunas [facility] [place] URINE ANTIGEN [facility] LEGIONELLA URINE ANTIGEN 2021-09-04 19:38:00 Bebo Mini [facility] LEGIONELLA URINE ANTIGEN 2021-09-04 19:38:00 Bebo Mini [facility] [place] PATH REVIEW [facility] STREPTOCOCCAL URINE 2021-09-04 19:38:00 Inez Lagunas [facility] ANTIGEN PATH REVIEW [facility] LOWER RESPIRATORY CULTURE 2021-09-04 19:36:00 Inez [facility] GR[facility] STAIN [facility] BASIC METABOLIC PANEL, 2021-09-04 09:51:00 Ver[facility]ica [facility]akkar [facility] CALCIUM TOTAL [facility] MAGNESIUM LEVEL 2021-09-04 09:51:00 Bijan [facility] PHOSPHORUS LEVEL 2021-09-04 09:51:00 Bijan [facility] TROPONIN T 2021-09-04 09:51:00 Aisha Mehrdad [facility] GLUCOSE LEVEL 2021-09-04 09:51:00 Bijan [facility] BLOOD UREA NITROGEN 2021-09-04 09:51:00 Verónica Thakkar [facility] ELECTROLYTE PANEL 2021-09-04 09:51:00 Bijan [facility] SERUM CREATININE 2021-09-04 09:51:00 Bijan [facility] .GLOMERULAR FILTRATION 2021-09-04 09:51:00 Verónica Thakkar [facility] RATE [facility] CALCIUM LEVEL TOTAL 2021-09-04 09:51:00 Bijan Verónica [facility] TROPONIN T 2021-09-04 03:49:00 Bijan [facility] CREATINE KINASE 2021-09-04 03:49:00 Bijan [facility] CKMB 2021-09-04 03:49:00 Bijan [facility] CT CHEST PULMONARY 2021-09-04 03:46:45 Bijan Verónica [facility] EMBOLISM W CONTRAST [facility] [place] XR CHEST 1 VW 2021-09-03 23:40:27 Jyoti Morales [facility] RESPIRATORY VIRAL 2021-09-03 23:14:00 Jyoti Morales [facility] MULTIPLEX PCR PANEL, [facility] NASOPHARYNGEAL SWAB Center COMPLETE BLOOD COUNT W/ 2021-09-03 21:54:00 Jyoti Morales [facility] DIFFERENTIAL [facility] COMPREHENSIVE METABOLIC 2021-09-03 21:54:00 Jyoti Morales [facility] PANEL [facility] MAGNESIUM LEVEL 2021-09-03 21:54:00 Jyoti Morales [facility] PHOSPHORUS LEVEL 2021-09-03 21:54:00 Jyoti Morales [facility] NT PRO BNP 2021-09-03 21:54:00 Jyoti Morales [facility] TROPONIN T 2021-09-03 21:54:00 Jyoti Morales [facility] Results CBC 2021-09-03 21:54:00 Jyoti Morales [facility] MANUAL DIFFERENTIAL 2021-09-03 21:54:00 Jyoti Morales [facility] GLUCOSE LEVEL 2021-09-03 21:54:00 Jyoti Morales [facility] BLOOD UREA NITROGEN 2021-09-03 21:54:00 Jyoti Morales [facility] ELECTROLYTE PANEL 2021-09-03 21:54:00 Jyoti Morales [facility] SERUM CREATININE 2021-09-03 21:54:00 Jyoti Morales [facility] .GLOMERULAR FILTRATION 2021-09-03 21:54:00 [facility]oti [facility]ales [facility] CALCIUM LEVEL TOTAL 2021-09-03 21:54:00 Jyoti Morales [facility] ALBUMIN LEVEL 2021-09-03 21:54:00 Jyoti Morales [facility] ALKALINE PHOSPHATASE 2021-09-03 21:54:00 Jyoti Morales [facility] ity [facility] ALANINE AMINOTRANSFERASE 2021-09-03 21:54:00 Jyoti Morales [facility] ASPARTATE AMINOTRANSFERASE 2021-09-03 21:54:00 [facility] TOTAL PROTEIN 2021-09-03 21:54:00 Jyoti Morales [place] [facility] FRACTIONATED BILIRUBIN 2021-09-03 21:54:00 J[facility]els [facility], 12-LEAD (PORTABLE) 2021-09-03 00:00:00 Jyoti Morales [facility] CT CHEST W CONTRAST 2021-08-13 14:15:24 Nicole Del Rosario [facility] POC CREATININE 2021-08-13 13:30:00 Nicole Del Rosario [facility] REPLACEMENT OF GASTROSTOMY 2021-05-22 04:50:00 [facility] IN[facility]ES REMOVAL, WHEN Center PERFORMED, WITHOUT IMAGING OR ENDOSCOPIC GUIDANCE; NOT REQUIRING REVISION OF GASTROSTOMY TRACT CT CHEST ABDOMEN PELVIS W 2021-04-20 19:35:00 Jackie Mendez [facility] CONTRAST [facility] POC CREATININE 2021-04-20 18:02:00 Maria Fernanda [place] [facility] MRI BRAIN W WO CONTRAST 2021-04-20 16:10:00 Jackie [facility] [facility] Plan of Care Planned Activity Planned Date Details Comments Source Future Scheduled 2022-11-01 COVID-19 Vaccination [facility] [place] Test 22:34:47 (#1) [code = COVID-19 [facility] (#1)] Center Future Scheduled 2022-11-01 COVID-19 Vaccination Uni versity [...] Department ID 2022-10-08 Outpatient SYSTEM, ANUJ LESLIE [id number] 12:38:41 PROVIDER Bakari o n 2021-04-30 Emergency [facility] [id number] Univers 04:07:38 ity of [facility] 2020-04-12 Outpatient ANUJ LESLIE [id number] 16:09:07 Fuentes zimmerman 2020-02-14 Outpatient SYSTEM, ANUJ LESLIE [id number] 13:23:33 PROVIDER Bakari o n 2022-09-13 2022-09-13 [facility], 1.2.840.1 [id number] [facility] 07:30:00 23:59:00 Encounter Maria Fernanda V. 82012.1.1 i ty of 3.412.2.7 [place] .3Yancy702964 MD Haines8 [facility] 2022-09-13 2022-09-13 [facility] NICHOLE [place], 1.2.840.1 [id number] Univers 07:30:00 23:59:00 Encounter Maria Fernanda V. 75383.1.1 i ty of 3.412.2.7 [place] .3Yancy354592 MD Haines8 [facility] 2022-09-13 2022-09-13 Follow-Up [facility], 1.2.840.1 [id number] Univers 11:30:00 13:09:21 Maria Fernanda V. 11365.1.1 ity of 3.412.2.7 [place] .3.553036 MD Haines8 [facility] 2022-09-13 2022-09-13 Follow-Up NICHOLE [place], 1.2.840.1 [id number] 11 [id number] Univers 11:30:00 13:09:21 Maria Fernanda V. 04628.1.1 ity of 3.412.2.7 [place] .3.063555 MD Haines8 [facility] 2022-09-13 2022-09-13 Ancillary Amber, 1.2.840.1 [id number] 1103 [id number] Univers 08:35:00 10:00:00 Procedure Stella 88446.1.1 ity of 3.412.2.7 [place] .3.987482 MD Haines8 [facility] 2022-09-13 2022-09-13 Ancillary NICHOLE Clark, 1.2.840.1 [id number] 1103 [id number] Univers 08:35:00 10:00:00 Procedure Stella 88884.1.1 ity of 3.412.2.7 [place] .3.429986 MD Haines8 [facility] 2022-09-13 2022-09-13 Orders Amber, 1.2.840.1 [id number] Univers 00:00:00 00:00:00 Only Stella 56720.1.1 it y of 3.412.2.7 [place] .3.393034 MD Beasley [facility] 2022-09-13 2022-09-13 Travel 1.2.840.1 1.2.379.225 9308 [id number] Univers 00:00:00 00:00:00 46806.1.1 350.1.13.41 ity of 3.412.2.[place].3.698 [place] 084.8 MD Beasley [facility] 2022-09-13 2022-09-13 Raul Clark, 1.2.840.1 [id number] Univers 00:00:00 00:00:00 Only Stella 10530.1.1 it y of 3.412.2.7 [place] .3.447515 MD Beasley [facility] 2022-09-13 2022-09-13 Travel 1.2.840.1 1.2.105.448 6684 [id number] Univers 00:00:00 00:00:00 91729.1.1 350.1.13.41 ity of 3.412.2.[place].3.698 [place] .3.532264 084.8 MD Beasley [facility] 2022-09-05 2022-09-05 Raul Clark, 1.2.840.1 [id number] Univers 00:00:00 00:00:00 Only Stella 17902.1.1 it y of 3.412.2.7 [place] .3.093124 MD Beasley [facility] 2022-09-05 2022-09-05 Raul Clark, 1.2.840.1 [id number] Univers 00:00:00 00:00:00 Only Stella 14375.1.1 it y of 3.412.2.7 [place] .3.136158 MD Beasley [facility] 2022-08-29 2022-08-29 Uzma Akhtar 1.2.840.1 [id number] 1103 [id number] Univers 00:00:00 00:00:00 Liz G 35764.1.1 ity of 3.412.2.7 [place] .3.837783 MD Haines8 [facility] 2022-08-29 2022-08-29 Telephone Akhtar, 1.2.840.1 [id number] 1103 [id number] Univers 00:00:00 00:00:00 Liz G 92353.1.1 ity of 3.412.2.7 [place] .3.297248 MD Haines8 [facility] 2022-06-19 2022-06-19 Orders Luis Angel, 1.2.840.1 [id number] Univers 00:00:00 00:00:00 Only Maria Fernanda V. 15128.1.1 ity of 3.412.2.7 [place] .3.614178 MD Haines8 [facility] 2022-06-19 2022-06-19 Orders Luis Angel, 1.2.840.1 [id number] Univers 00:00:00 00:00:00 Only Maria Fernanda V. 24303.1.1 ity of 3.412.2.7 [place] .3.970313 MD Haines8 [facility] 2022-06-07 2022-06-07 [facility], 1.2.840.1 [id number] [id number] Univers 09:35:06 23:59:00 Encounter Stella 73239.1.1 ity of 3.412.2.7 [place] .3.427440 MD Haines8 [facility] 2022-06-07 2022-06-07 [facility] 1.2.840.1 [id number] Univers 09:35:06 23:59:00 Encounter Stella 16788.1.1 ity of 3.412.2.7 [place] .3.187182 MD Haines8 [facility] 2022-06-07 2022-06-07 Follow-Up Luis Angel, 1.2.840.1 [id number] 10 [id number] Univers 12:00:00 14:14:09 Maria Fernanda V. 82727.1.1 ity of 3.412.2.7 [place] .3.453316 MD Beasley [facility] 2022-06-07 2022-06-07 Follow-Up NICHOLE Luis Angel, 1.2.840.1 [id number] 10 [id number] Univers 12:00:00 14:14:09 Maria Fernanda V. 84466.1.1 ity of 3.412.2.7 [place] .3.651483 MD Beasley [facility] 2022-06-07 2022-06-07 Ancillary Amber, 1.2.840.1 [id number] 1099 [id number] Univers 07:00:00 09:30:00 Procedure Stella 45067.1.1 ity of 3.412.2.7 [place] .3.084661 MD Beasley [facility] 2022-06-07 2022-06-07 Ancillary NICHOLE Clark, 1.2.840.1 [id number] 1099 [id number] Univers 07:00:00 09:30:00 Procedure Stella 62285.1.1 ity of 3.412.2.7 [place] .3.094066 MD Beasley [facility] 2022-06-07 2022-06-07 Orders Amber, 1.2.840.1 [id number] Univers 00:00:00 00:00:00 Only Stella 03075.1.1 it y of 3.412.2.7 [place] .3.195334 MD Beasley [facility] 2022-06-07 2022-06-07 Raul Luis Angel, 1.2.840.1 [id number] 1100 [id number] Univers 00:00:00 00:00:00 Only Maria Fernanda V. 31411.1.1 ity of 3.412.2.7 [place] .3.419860 MD Beasley [facility] 2022-06-07 2022-06-07 Travel 1.2.840.1 1.2.795.870 4544 [id number] Univers 00:00:00 00:00:00 63031.1.1 350.1.13.41 ity of 3.412.2.[place]7.3.698 [place]3.6157[place] 084.8 MD Beasley [facility] 2022-06-07 2022-06-07 Raul Clark, 1.2.840.1 [id number] 0782 Univers 00:00:00 00:00:00 Only Stella 35135.1.1 it y of 3.412.2.7 [place] .3.534129 MD Beasley [facility] 2022-06-07 2022-06-07 Orders Luis Angel, 1.2.840.1 [id number] 1100 [id number] Univers 00:00:00 00:00:00 Only Maria Fernanda Fu 18509.1.1 ity of 3.412.2.7 [place] .3.181138 MD Beasley [facility] 2022-06-07 2022-06-07 Travel 1.2.840.1 1.2.054.314 6064 [id number] Univers 00:00:00 00:00:00 15907.1.1 350.1.13.41 ity of 3.412.2.[place].3.698 [place]3.5670[place] 084.8 MD Beasley [facility] 2022-05-09 2022-05-09 Telephone Fab, 1.2.840.1 [id number] 1099 [id number] Univers 00:00:00 00:00:00 Mini F 57124.1.1 ity of 3.412.2.7 [place] .3.991604 MD Beasley [facility] 2022-05-09 2022-05-09 Telephone Fab, 1.2.840.1 [id number] 1099 [id number] Univers 00:00:00 00:00:00 Mini F 88402.1.1 ity of 3.412.2.7 [place] .3.351145 MD Beasley [facility] 2022-05-03 2022-05-03 Raul Clark, 1.2.840.1 [id number] Univers 00:00:00 00:00:00 Only Stella 14587.1.1 it y of 3.412.2.7 [place] .3.869833 MD Haines8 [facility] 2022-05-03 2022-05-03 Telephone Zulema Cedillo 1.2.840.1 [id number] 1 [id number] Univers 00:00:00 00:00:00 A 31330.1.1 ity of 3.412.2.7 [place] .3.758603 MD Haines8 [facility] 2022-05-03 2022-05-03 Raul Clark, 1.2.840.1 [id number] Univers 00:00:00 00:00:00 Only Stella 33190.1.1 it y of 3.412.2.7 [place] .3.020335 MD Haines8 [facility] 2022-05-03 2022-05-03 Telephone Zulema Cedillo 1.2.840.1 [id number] 1 [id number] Univers 00:00:00 00:00:00 A 20022.1.1 ity of 3.412.2.7 [place] .3.076135 MD Beasley [facility] 2021-12-28 2021-12-28 Nurse Willis, 1.2.840.1 [id number] 1094 [id number] Univers 00:00:00 00:00:00 Triage Constantine 60584.1.1 ity of 3.412.2.7 [place] .3.077692 MD Beasley [facility] 2021-12-28 2021-12-28 Documentat Luis Angel, 1.2.840.1 [id number] 1 [id number] Univers 00:00:00 00:00:00 ion Maria Fernanda V. 02809.1.1 ity of 3.412.2.7 [place] .3.674592 MD Beasley [facility] 2021-12-28 2021-12-28 Nurse Willis, 1.2.840.1 [id number] 1094 [id number] Univers 00:00:00 00:00:00 Triage Constantine 67884.1.1 ity of 3.412.2.7 [place] .3.743997 MD Haines8 [facility] 2021-12-28 2021-12-28 Documentat Fossrachael, 1.2.840.1 [id number] 1 [id number] Univers 00:00:00 00:00:00 ion Maria Fernanda Fu 76795.1.1 ity of 3.412.2.7 [place] .3.529112 MD Haines8 [facility] 2021-12-20 2021-12-20 Telephone Ger, 1.2.840.1 [id number] 1 [id number] Univers 00:00:00 00:00:00 Lolita 31882.1.1 ity of [place] 3.412.2.7 [place] .3.832698 MD Haines8 [facility] 2021-12-20 2021-12-20 Telephone Ger, 1.2.840.1 [id number] 1 [id number] Univers 00:00:00 00:00:00 Lolita 55732.1.1 ity of [place] 3.412.2.7 [place] .3.108165 MD Haines8 [facility] 2021-12-11 2021-12-11 Telephone Nuvia, 1.2.840.1 [id number] 1093 [id number] Univers 00:00:00 00:00:00 Bibiana Trevino 78835.1.1 ity of 3.412.2.7 [place] .3.125036 MD Haines8 [facility] 2021-12-11 2021-12-11 Telephone Nuvia, 1.2.840.1 [id number] 1093 [id number] Univers 00:00:00 00:00:00 Bibiana Trevino 12302.1.1 ity of 3.412.2.7 [place] .3.048124 MD Haines8 [facility] 2021-12-05 2021-12-05 Telephone Tyson 1.2.840.1 [id number] 1093 [id number] Univers 00:00:00 00:00:00 Kasie Lehman 66062.1.1 i ty of 3.412.2.7 [place] .3.415221 MD Haines8 [facility] 2021-12-05 2021-12-05 Telephone Tyson, 1.2.840.1 [id number] 1093 [id number] Univers 00:00:00 00:00:00 Kasie Lehman 95056.1.1 i ty of 3.412.2.7 [place] .3.848612 MD Haines8 [facility] 2021-12-01 2021-12-01 Nurse Olivares 1.2.840.1 [id number] 4395 Univers 00:00:00 00:00:00 Triage Erin Lehman 13503.1.1 i ty of 3.412.2.7 [place] .3.495416 MD Haines8 [facility] 2021-12-01 2021-12-01 Nurse Olivares 1.2.840.1 [id number] Univers 00:00:00 00:00:00 Triage Erin Lehman 54515.1.1 i ty of 3.412.2.7 [place] .3.152269 MD Haines8 [facility] 2021-11-13 2021-11-13 Raul Clark 1.2.840.1 [id number] Univers 00:00:00 00:00:00 Only Stella 85421.1.1 it y of 3.412.2.7 [place] .3.582442 MD Haines8 [facility] 2021-11-13 2021-11-13 Telephone Edmnud 1.2.840.1 [id number] 1092 [id number] Univers 00:00:00 00:00:00 Daisy Zimmerman 52038.1.1 it y of 3.412.2.7 [place] .3.672534 MD Haines8 [facility] 2021-11-02 2021-11-02 Fito Huber 1.2.840.1 [id number] 1092 [id number] Univers 00:00:00 00:00:00 Only Herrera 36599.1.1 ity of 3.412.2.7 [place] .3.233719 MD Beasley [facility] 2021-11-02 2021-11-02 Karishma Haider 1.2.840.1 [id number] 10 [id number] Univers 00:00:00 00:00:00 Triage J 34017.1.1 ity of 3.412.2.7 [place] .3.278836 .8 [facility] 2021-10-15 2021-10-24 [facility] Verónica Diaz 1.2.840.1 [id number] Univers 09:35:00 17:00:00 Encounter Thelma Bowser 51252.1.1 ity of [place], Ed 3.412.2.7 Gio as Randa Tod V. .3.593416 Boni Dominguez .8 [facility] 2021-10-24 2021-10-24 Nurse Jackson, 1.2.840.1 [id number] [id number] Univers 00:00:00 00:00:00 Triage Amsha 55427.1.1 ity of 3.412.2.7 [place] .3.043008 .8 [facility] 2021-10-23 2021-10-23 Inpatient NICHOLE OBRIEN [facility] [id number] 20:59:49 21:16:07 BONI zimmerman 2021-10-19 2021-10-19 Surgery Aisha, 1.2.840.1 [id number] Univers 15:10:00 15:50:00 Edwige 76146.1.1 ity of Ali 3.412.2.7 [place] .3.792845 .8 [facility] 2021-10-19 2021-10-19 Anesthesia Jenise Degroot 1.2.840.1 [id number] Univers 13:24:00 13:49:00 Event Dhiraj Fry 54932.1.1 ity of 3.412.2.7 [place] .3.786625 .8 [facility] 2021-10-18 2021-10-18 Prep for O'Brandon, 1.2.840.1 [id number] 97921 [id number] Univers 00:00:00 00:00:00 Surgery Shena 70230.1.1 [place] .3.017[place] .8 [facility] 2021-10-17 2021-10-17 Inpatient NICHOLE GLASS SON MDA MDA [id number] 11:46:00 11:46:04 Bakari o erasmo 2021-10-16 2021-10-16 Inpatient NICHOLE WASHINGTON MDA MDA [id number] 14:52:17 14:52:20 MARIA FERNANDA zimmerman 2021-10-16 2021-10-16 Inpatient NICHOLE [place], MDA MDA [id number] 10:37:11 10:37:14 MARIA FERNANDA zimmerman 2021-10-16 2021-10-16 Inpatient NICHOLE [place], MDA MDA [id number] 10:05:03 10:05:06 MARIA FERNANDA zmimerman 2021-10-15 2021-10-15 Inpatient NICHOLE KIM, ED MDA MDA [id number] 23:20:17 23:40:10 Bakari o erasmo 2021-10-15 2021-10-15 Travel 1.2.840.1 1.2.491.674 7629 [id number] Univers 00:00:00 00:00:00 13147.1.1 350.1.13.41 ity of 3.412.2.7 [place].3.698 [place] .3.[place] 084.8 MD Haines8 [facility] 2021-10-11 2021-10-11 Orders Amber, 1.2.840.1 [id number] Univers 00:00:00 00:00:00 Only Stella 35152.1.1 it y of 3.412.2.7 [place] .3.710897 MD Haines8 [facility] 2021-10-10 2021-10-10 Orders Keeshailati 1.2.840.1 [id number] Univers 00:00:00 00:00:00 Only Kaylyn, 63804.1.1 ity of Deshawn 3.412.2.7 [place] .3.195428 MD Haines8 [facility] 2021-10-10 2021-10-10 Nurse Dean, 1.2.840.1 [id number] Univers 00:00:00 00:00:00 Triage Stella Stewart 23096.1.1 ity of 3.412.2.7 [place] .3.751580 MD Haines8 [facility] 2021-10-10 2021-10-10 Telephone Price, 1.2.840.1 [id number] 1091 [id number] Univers 00:00:00 00:00:00 Ileana Seth 97917.1.1 i ty of 3.412.2.7 [place] .3.193556 MD Haines8 [facility] 2021-09-03 2021-09-07 [facility] Verónica Thakkar 1.2.840.1 [id number] Univers 16:59:00 15:45:00 Encounter Mehrdad Rod 26615.1.1 ity of Gurpreet Estes 3.412.2.7 [place] .3.085474 MD Beasley [facility] 2021-09-07 2021-09-07 Travel 1.2.840.1 1.2.448.054 0675 [id number] Univers 00:00:00 00:00:00 94500.1.1 350.1.13.41 ity of 3.412.2.7 2.2.7.3.698 [place] .3.408737 084.8 MD Beasley [facility] 2021-09-05 2021-09-05 [facility] NICHOLE HART MDA MDA [id number] 11:14:45 11:38:29 DANISH zimmerman 2021-09-03 2021-09-03 Travel 1.2.840.1 1.2.392.608 8022 [id number] Univers 00:00:00 00:00:00 05839.1.1 350.1.13.41 ity of 3.412.2.7 2.2.7.3.698 [place] .3.315796 084.8 MD Haines8 [facility] 2021-09-03 2021-09-03 Telephone John, 1.2.840.1 [id number] 1090 [id number] Univers 00:00:00 00:00:00 Michael Lehman 55096.1.1 ity of 3.412.2.7 [place] .3.450995 MD Haines8 [facility] 2021-08-22 2021-08-22 Telephone Amber, 1.2.840.1 [id number] 1089 [id number] Univers 00:00:00 00:00:00 Stella 10213.1.1 it y of 3.412.2.7 [place] .3.009944 MD Haines8 [facility] 2021-08-22 2021-08-22 Orders Amber 1.2.840.1 [id number] 2956 Univers 00:00:00 00:00:00 Only Stella 76647.1.1 it y of 3.412.2.7 [place] .3.152117 MD Haines8 [facility] 2021-08-20 2021-08-20 Orders Fab, 1.2.840.1 [id number] Univers 00:00:00 00:00:00 Only Lela Ramírez 77221.1.1 ity of 3.412.2.7 [place] .3.823041 MD Haines8 [facility] 2021-08-18 2021-08-18 Orders Amber 1.2.840.1 [id number] Univers 00:00:00 00:00:00 Only Stella 22308.1.1 it y of 3.412.2.7 [place] .3.951537 MD Haines8 [facility] 2021-08-18 2021-08-18 Orders Luis Angel 1.2.840.1 [id number] 1089 [id number] Univers 00:00:00 00:00:00 Only Maria Fernanda Fu 58265.1.1 ity of 3.412.2.7 [place] .3Yancy100592 MD Haines8 [facility] 2021-08-17 2021-08-17 Telephone Zulema Cedillo 1.2.840.1 [id number] 1 [id number] Univers 00:00:00 00:00:00 A 87343.1.1 ity of 3.412.2.7 [place] .3.929237 MD Haines8 [facility] 2021-08-14 2021-08-14 Office NICHOLE Piedra, 1.2.840.1 [id number] 4484 Univers 12:15:00 13:20:09 Visit Herrera 49930.1.1 ity of 3.412.2.7 [place] .3.698260 MD Haines8 [facility] 2021-08-14 2021-08-14 Office NICHOLE Luis Angel, 1.2.840.1 [id number] 1089 [id number] Univers 08:30:00 10:28:29 Visit Maria Fernanda CervantesYancy 19278.1.1 ity of 3.412.2.7 [place] .3.831411 MD Haines8 [facility] 2021-08-14 2021-08-14 Orders Solo, 1.2.840.1 [id number] Univers 00:00:00 00:00:00 Only Jacki 11374.1.1 ity of 3.412.2.7 [place] .3.592758 MD Haines8 [facility] 2021-08-14 2021-08-14 Orders Gucci, 1.2.840.1 [id number] [id number] Univers 00:00:00 00:00:00 Only Sarah Ybarra 23692.1.1 ity of 3.412.2.7 [place] .3.238644 MD Haines8 [facility] 2021-08-14 2021-08-14 Travel 1.2.840.1 1.2.093.165 3415 [id number] Univers 00:00:00 00:00:00 06368.1.1 350.1.13.41 ity of 3.412.2.7 2.2.7.3.698 [place] .3.423432 084.8 MD Haines8 [facility] 2021-08-13 2021-08-13 [facility] 1.2.840.1 [id number] 10 [id number] Univers 09:45:00 23:59:00 Encounter 60370.1.1 it y of 3.412.2.7 [place] .3.752632 MD Haines8 [facility] 2021-08-13 2021-08-13 Hospital NICHOLE [place], 1.2.840.1 [id number] Univers 06:35:00 09:44:00 Encounter Nicole 51340.1.1 it y of [place] 3.412.2.7 [place] .3.763707 MD Haines8 [facility] 2021-08-13 2021-08-13 [facility] Del [place], 1.2.840.1 [id number] 8307 Univers 00:00:00 00:00:00 Only Nicole 02902.1.1 ity of [place] 3.412.2.7 [place] .3.030588 MD Haines8 [facility] 2021-08-13 2021-08-13 Travel 1.2.840.1 1.2.140.679 6017 [id number] Univers 00:00:00 00:00:00 01299.1.1 350.1.13.41 ity of 3.412.2.7 2.2.7.3.698 [place] .3.349122 084.8 MD Haines8 [facility] 2021-08-11 2021-08-11 Angel [place], 1.2.840.1 [id number] 1089 [id number] Univers 00:00:00 00:00:00 Maria Fernanda Fu 16308.1.1 ity of 3.412.2.7 [place] .3.516204 MD Haines8 [facility] 2021-08-07 2021-08-07 Raul Fenton, 1.2.840.1 [id number] 6778 Univers 00:00:00 00:00:00 Only Abdirizak 60299.1.1 ity of 3.412.2.7 [place] .3.349018 MD Beasley [facility] 2021-07-27 2021-07-27 Uzma Farias 1.2.840.1 [id number] 1 [id number] Univers 00:00:00 00:00:00 Génesis Ann 52493.1.1 ity of 3.412.2.7 [place] .3.160077 MD Haines8 [facility] 2021-07-27 2021-07-27 Angel Clark, 1.2.840.1 [id number] Univers 00:00:00 00:00:00 Stella 54557.1.1 it y of 3.412.2.7 [place] .3.514746 MD Haines8 [facility] 2021-07-26 2021-07-26 Telephone Anais, 1.2.840.1 [id number] 1 [id number] Univers 00:00:00 00:00:00 Génesis Trevino 36564.1.1 ity of 3.412.2.7 [place] .3.454606 MD Haines8 [facility] 2021-07-26 2021-07-26 Orders Andrea, 1.2.840.1 [id number] Univers 00:00:00 00:00:00 Only Jackie 52260.1.1 ity of 3.412.2.7 [place] .3.984153 MD Haines8 [facility] 2021-07-26 2021-07-26 Refzuleyka Clark, 1.2.840.1 [id number] 7118 Univers 00:00:00 00:00:00 Stella 02840.1.1 it y of 3.412.2.7 [place] .3.411652 MD Haines8 [facility] 2021-07-19 2021-07-19 Telephone Edmund, 1.2.840.1 [id number] 1088 [id number] Univers 00:00:00 00:00:00 Daisy Zimmerman 57940.1.1 it y of 3.412.2.7 [place] .3.138927 MD Haines8 [facility] 2021-07-12 2021-07-12 Telephone Amber, 1.2.840.1 [id number] 1088 [id number] Univers 00:00:00 00:00:00 Stella 30639.1.1 it y of 3.412.2.7 [place] .3.260258 MD Haines8 [facility] 2021-07-11 2021-07-11 Raul Clark, 1.2.840.1 [id number] 9353 Univers 00:00:00 00:00:00 Only Stella 90182.1.1 it y of 3.412.2.7 [place] .3.471560 MD Haines8 [facility] 2021-07-11 2021-07-11 Telephone Price, 1.2.840.1 [id number] 1088 [id number] Univers 00:00:00 00:00:00 Ileana Seth 99327.1.1 i ty of 3.412.2.7 [place] .3Yancy168531 MD Haines8 [facility] 2021-07-02 2021-07-02 Raul Clark 1.2.840.1 [id number] Univers 00:00:00 00:00:00 Only Stella 91497.1.1 it y of 3.412.2.7 [place] .3.552171 MD Haines8 [facility] 2021-06-27 2021-06-27 Raul Clark, 1.2.840.1 [id number] 6570 Univers 00:00:00 00:00:00 Only Stella 40597.1.1 it y of 3.412.2.7 [place] .3.194274 MD Haines8 [facility] 2021-06-25 2021-06-25 Raul Clark 1.2.840.1 [id number] Univers 00:00:00 00:00:00 Only Stella 03674.1.1 it y of 3.412.2.7 [place] .3.144642 MD Haines8 [facility] 2021-06-14 2021-06-14 Telephone Ger, 1.2.840.1 [id number] Univers 00:00:00 00:00:00 Lolita 94233.1.1 ity of [place] 3.412.2.7 [place] .3.828022 MD Haines8 [facility] 2021-06-11 2021-06-11 Raul Clark 1.2.840.1 [id number] Univers 00:00:00 00:00:00 Only Stella 71215.1.1 it y of 3.412.2.7 [place] .3.345416 MD Beasley [facility] 2021-06-09 2021-06-09 Alicezuleyka Rob, 1.2.840.1 [id number] [employer] 00:00:00 00:00:00 Yudith Lehman 21213.1.1 ity of 3.412.2.7 [place] .3.945862 MD Beasley [facility] 2021-06-06 2021-06-06 Telephone Marcderrick, 1.2.840.1 [id number] 1 [id number] [employer] 00:00:00 00:00:00 Génesis Trevino 93994.1.1 ity of 3.412.2.7 [place] .3.591345 MD Beasley [facility] 2021-05-21 2021-05-21 [facility], 1.2.840.1 [id number] Univers 14:50:00 15:20:00 Claude 41359.1.1 ity of 3.412.2.7 [place] .3.818578 MD Beasley [facility] 2021-05-21 2021-05-21 [facility], 1.2.840.1 [id number] Univers 12:54:00 13:30:00 Encounter Claude 28939.1.1 it y of 3.412.2.7 [place] .3.017636 MD Beasley [facility] 2021-05-21 2021-05-21 Travel 1.2.840.1 [id number] [id number] [facility] 00:00:00 00:00:00 91712.1.1 350.1.13.41 ity of 3.412.2.[place]3.698 [place] .3.128463 084.8 MD Beasley [facility] 2021-05-17 2021-05-17 Prep for Yannick, 1.2.840.1 [id number] [employer] 00:00:00 00:00:00 Surgery [place] Erasmo 55619.1.1 it y of 3.412.2.7 [place] .3.946893 MD Haines8 [facility] 2021-05-17 2021-05-17 Raul Clark, 1.2.840.1 [id number] Univers 00:00:00 00:00:00 Only Stella 80186.1.1 it y of 3.412.2.7 [place] .3.554283 MD Haines8 [facility] 2021-05-16 2021-05-16 Raul Clark, 1.2.840.1 [id number] Univers 00:00:00 00:00:00 Only Stella 57354.1.1 it y of 3.412.2.7 [place] .3.718009 MD Haines8 [facility] 2021-05-16 2021-05-16 Telephone Ger, 1.2.840.1 [id number] 1 [id number] [employer] 00:00:00 00:00:00 Lolita 27189.1.1 ity of [place] 3.412.2.7 [place] .3.908269 MD Haines8 [facility] 2021-05-16 2021-05-16 Telephone Ger, 1.2.840.1 [id number] 1 [id number] Univers 00:00:00 00:00:00 Lolita 44816.1.1 ity of [place] 3.412.2.7 [place] .3.108479 MD Haines8 [facility] 2021-05-14 2021-05-14 Raul Javed, 1.2.840.1 [id number] Univers 00:00:00 00:00:00 Only Giovanna Tanner 54464.1.1 i ty of 3.412.2.7 [place] .3.992563 MD Haines8 [facility] 2021-04-27 2021-04-27 Raul Clark 1.2.840.1 [id number] [employer] 00:00:00 00:00:00 Only Stella 20169.1.1 it y of 3.412.2.7 [place] .3.950044 MD Haines8 [facility] 2021-04-25 2021-04-25 Orders Amber, 1.2.840.1 [id number] Univers 00:00:00 00:00:00 Only Stella 47469.1.1 it y of 3.412.2.7 [place] .3.421705 MD Haines8 [facility] 2021-04-23 2021-04-23 [facility] Raymundo Rivera 1.2.840.1 [id number] Univers 09:38:02 23:59:00 Encounter 27461.1.1 it y of 3.412.2.7 [place] .3.406823 MD Haines8 [facility] 2021-04-23 2021-04-23 Raul Del Rosario 1.2.840.1 [id number] [employer] 00:00:00 00:00:00 Only Nicole 35467.1.1 ity of [place] 3.412.2.7 [place] .3.059070 MD Haines8 [facility] 2021-04-23 2021-04-23 Raul Del Rosario 1.2.840.1 [id number] Univers 00:00:00 00:00:00 Only Nicole 42626.1.1 ity of [place] 3.412.2.7 [place] .3.044783 MD Haines8 [facility] 2021-04-23 2021-04-23 Raul Del Rosario 1.2.840.1 [id number] Univers 00:00:00 00:00:00 Only Nicole 78102.1.1 ity of [place] 3.412.2.7 [place] .3.947674 MD Haines8 [facility] 2021-04-23 2021-04-23 Raul Del Rosario 1.2.840.1 [id number] Univers 00:00:00 00:00:00 Only Nicole 49468.1.1 ity of [place] 3.412.2.7 [place] .3.856915 MD Beasley [facility] 2021-04-23 2021-04-23 Travel 1.2.840.1 1.2.647.267 3449 [id number] Univers 00:00:00 00:00:00 89107.1.1 350.1.13.41 ity of 3.412.2.7 2.[place].3.698 [place] .3.075049 084.8 MD Beasley [facility] 2021-04-20 2021-04-20 [facility], 1.2.840.1 [id number] Univers 11:46:55 23:59:00 Encounter Maria Fernanda Fu 78193.1.1 i ty of 3.412.2.7 [place] .3.774873 MD Beasley [facility] 2021-04-20 2021-04-20 [facility], 1.2.840.1 [id number] Univers 09:15:00 11:00:00 Procedure Maria Fernanda Fu 47053.1.1 i ty of 3.412.2.7 [place] .3.492812 MD Beasley [facility] 2021-04-20 2021-04-20 Travel 1.2.840.1 1.2.008.022 0364 [id number] Univers 00:00:00 00:00:00 74338.1.1 350.1.13.41 ity of 3.412.2.7 2.[place]7.3.698 [place] .3.025782 084.8 MD Beasley [facility] 2021-04-16 2021-04-16 [facility]inson, 1.2.840.1 [id number] Univers 09:30:00 23:59:00 Encounter Mary Beth Ann 04422.1.1 i ty of 3.412.2.7 [place] .3.915438 MD Beasley [facility] 2021-04-16 2021-04-16 Office NICHOLE Monreal, 1.2.840.1 [id number] Univers 09:00:00 10:36:47 Visit Herrera 24568.1.1 ity of 3.412.2.7 [place] .3.297642 MD Beasley [facility] 2021-04-16 2021-04-16 Travel 1.2.840.1 1.2.146.865 [id number] [id number] Univers 00:00:00 00:00:00 94975.1.1 350.1.13.41 ity of 3.412.2.7 2.[place].3.698 [place] .3.910751 084.8 MD Beasley [facility] 2021-04-13 2021-04-13 Raul Giraldo, 1.2.840.1 [id number] Univers 00:00:00 00:00:00 Only [place] 08589.1.1 ity of 3.412.2.7 [place] .3.521965 MD Beasley [facility] 2021-04-07 2021-04-07 Raul Murguia 1.2.840.1 [id number] Univers 00:00:00 00:00:00 Only Kaylyn 65234.1.1 ity of [place] 3.412.2.7 [place] .3.016167 MD Beasley [facility] 2021-04-07 2021-04-07 Nurse Taylor 1.2.840.1 [id number] Univers 00:00:00 00:00:00 Triage Juan Lehman 79266.1.1 it y of 3.412.2.7 [place] .3.398372 MD Beasley [facility] 2021-04-05 2021-04-05 Raul Clark 1.2.840.1 [id number] Univers 00:00:00 00:00:00 Only Stella 81764.1.1 it y of 3.412.2.7 [place] .3.410544 MD Beasley [facility] 2021-04-04 2021-04-04 Angel Gonzalez 1.2.840.1 [id number] Univers 00:00:00 00:00:00 Gurpreet Ramírez 66321.1.1 it y of 3.412.2.7 [place] .3.638155 MD Haines8 [facility] 2021-04-04 2021-04-04 Angel Pineda Gabrielle 1.2.840.1 [id number] Univers 00:00:00 00:00:00 K 26968.1.1 ity of 3.412.2.7 [place] .3.385435 MD Haines8 [facility] 2021-04-03 2021-04-03 Gillian Marr 1.2.840.1 [id number] Univers 14:00:00 14:00:00 Alina 11224.1.1 ity of 3.412.2.7 [place] .3.939661 MD Beasley [facility] 2021-03-30 2021-03-30 Raul Clark, 1.2.840.1 [id number] 1407 Univers 00:00:00 00:00:00 Only Stella 25309.1.1 it y of 3.412.2.7 [place] .3.320040 MD Beasley [facility] 2021-03-29 2021-03-29 Raul Clark 1.2.840.1 [id number] Univers 00:00:00 00:00:00 Only Stella 55258.1.1 it y of 3.412.2.7 [place] .3.229493 MD Beasley [facility] 2021-03-27 2021-03-27 Raul Clark 1.2.840.1 [id number] Univers 00:00:00 00:00:00 Only Stella 89029.1.1 it y of 3.412.2.7 [place] .3.213223 MD Beasley [facility] 2021-03-27 2021-03-27 Angel Santillan, 1.2.840.1 [id number] [id number] Univers 00:00:00 00:00:00 Wilfredo Stewart 70747.1.1 ity of 3.412.2.7 [place] .3.177819 MD Haines8 [facility] 2021-03-09 2021-03-09 Raul Daytonmimi, 1.2.840.1 [id number] 0141 Univers 00:00:00 00:00:00 Only Tanja Mora 80192.1.1 ity of 3.412.2.7 [place] .3.357079 MD Haines8 [facility] 2021-03-08 2021-03-08 Raul Amber, 1.2.840.1 [id number] 3060 Univers 00:00:00 00:00:00 Only Stella 04927.1.1 it y of 3.412.2.7 [place] .3.380737 MD Haines8 [facility] 2021-03-07 2021-03-07 Raul Perez, 1.2.840.1 [id number] 2364 Univers 00:00:00 00:00:00 Only Tanja Mora 96506.1.1 ity of 3.412.2.7 [place] .3.894037 MD Haines8 [facility] 2021-03-07 2021-03-07 Documentat Precious, 1.2.840.1 [id number] Univers 00:00:00 00:00:00 ion Benedicto 56869.1.1 ity of 3.412.2.7 [place] .3.748078 MD Haines8 [facility] 2021-03-07 2021-03-07 Angel Rivas, 1.2.840.1 [id number] Univers 00:00:00 00:00:00 Yudith Lehman 31174.1.1 ity of 3.412.2.7 [place] .3.642501 MD Haines8 [facility] 2021-03-07 2021-03-07 Documentat Shivam, 1.2.840.1 [id number] Univers 00:00:00 00:00:00 ion Sahara 77302.1.1 itKathy 3.412.2.7 [place] .3.030563 .8 [facility] 2021-02-16 2021-03-02 Inpatient UR SARAH, [facility] [id number] 13:50:00 18:30:00 IRINA Leesers o n 2021-03-02 2021-03-02 Inpatient EL SARAH, MDA MDA [id number] 10:28:13 10:52:29 IRINA Leesers o n 2021-03-01 2021-03-01 Inpatient GABRIELLE SQUIRES MDA MDA [id number] 13:48:32 14:24:14 Bakari o erasmo 2021-02-28 2021-02-28 Inpatient EL GABRIELLE GONZALEZ MDA MDA [id number] 15:34:04 16:08:02 Bakari o erasmo 2021-02-27 2021-02-27 Inpatient EL CORDELLELLA, MDA MDA [id number] 11:31:18 11:31:23 MARIA FERNANDA Villegas o erasmo 2021-02-23 2021-02-23 Inpatient EL JSOE, MDA MDA [id number] 08:50:18 09:09:38 MARCIN Villegas o erasmo 2021-02-20 2021-02-20 Inpatient EL HALM, MDA MDA [id number] 21:52:07 22:45:31 MAYANK Leesers o erasmo 2021-02-19 2021-02-19 Inpatient EL HALM, MDA MDA [id number] 16:34:08 16:35:56 MAYANK Leesers o erasmo 2021-02-19 2021-02-19 Inpatient EL HALM, MDA MDA [id number] 14:32:55 14:50:27 MAYANK Leesers o erasmo 2021-02-19 2021-02-19 Inpatient EL FOSSELLA, MDA MDA [id number] 11:06:11 11:06:14 MARIA FERNANDA Leesers o erasmo 2021-02-18 2021-02-18 Inpatient EL HALM, MDA MDA [id number] 15:44:22 16:22:28 MAYANK Leesers o erasmo 2021-02-17 2021-02-17 Inpatient EL TOD GLASS MDA MDA [id number] 03:53:53 04:06:50 Bakari zimmerman 2021-01-21 2021-01-30 Inpatient ER ODARO, [facility] [id number] 21:38:00 18:36:00 BENEDICTO zimmerman 2021-01-30 2021-01-30 Inpatient EL FOSSELLA, MDA MDA [id number] 15:18:04 15:18:06 MARIA FERNANDA zimmerman 2021-01-28 2021-01-28 Inpatient EL AL AMERI, MDA MDA [id number] 13:47:27 13:49:05 RASHAAD zimmerman 2021-01-25 2021-01-25 Inpatient EL AL AMERI, MDA MDA [id number] 20:37:26 20:37:30 RASHAAD zimmerman 2021-01-24 2021-01-24 Inpatient EL AL AMERI, MDA MDA [id number] 08:18:01 08:38:37 RASHAAD zimmerman 2021-01-22 2021-01-22 Inpatient EL AL AMERI, MDA MDA [id number] 19:02:05 19:25:15 RASHAAD zimmerman 2021-01-04 2021-01-19 Inpatient ER SIMBAQUEBA [facility] [id number] 11:01:00 16:25:00 Levi RAJPUT 2021-01-18 2021-01-18 Inpatient EL FOSSELLA, MDA MDA [id number] 11:15:46 11:15:49 MARIA FERNANDA zimmerman 2021-01-15 2021-01-15 Inpatient EL FOSSELLA, MDA MDA [id number] 10:54:17 10:54:19 MARIA FERNANDA zimmerman 2021-01-14 2021-01-14 Inpatient EL RAMSEY, MDA MDA [id number] 12:12:50 13:22:39 JUAREZ zimmerman 2021-01-12 2021-01-12 Inpatient EL FOSSELLA, MDA MDA [id number] 11:16:26 11:16:28 MARIA FERNANDA zimmerman 2021-01-10 2021-01-10 Inpatient EL FOSSELLA, MDA MDA [id number] 12:34:26 12:34:30 MARIA FERNANDA zimmerman 2021-01-09 2021-01-09 Inpatient EL ESTES, MDA MDA [id number] 21:30:37 21:42:18 GURPREET zimmerman 2021-01-08 2021-01-08 Inpatient EL ESTES, MDA MDA [id number] MD 11:15:00 12:40:27 GURPREET zimmerman 2021-01-07 2021-01-07 Inpatient EL ALEXUS, MDA MDA [id number] 09:48:34 10:43:19 BONI zimmerman 2021-01-05 2021-01-05 Inpatient EL FOSSELLA, MDA MDA [id number] 10:28:44 10:28:46 MARIA FERNANDA zimmerman 2020-12-26 2020-12-26 Outpatient EL FOSSELLA, MDA MDA [id number] 13:17:22 13:49:03 MARIA FERNANDA zimmerman 2020-12-22 2020-12-22 Outpatient EL FOSSELLA, MDA MDA [id number] 15:44:28 15:44:28 MARIA FERNANDA zimmerman 2020-12-20 2020-12-20 Outpatient EL FOSSELLA, MDA MDA [id number] 14:45:38 15:10:28 MARIA FERNANDA zimmerman 2020-12-19 2020-12-19 Outpatient EL FOSSELLA, MDA MDA [id number] 15:02:13 15:33:05 MARIA FERNANDA zimmerman 2020-12-18 2020-12-18 Outpatient EL FOSSELLA, MDA MDA [id number] 14:30:00 23:59:00 MARIA FERNANDA zimmerman 2020-12-18 2020-12-18 Outpatient EL TEJINDER RAYMUNDO MDA MDA [id number] 15:34:19 15:34:19 Bakari zimmerman 2020-12-18 2020-12-18 Outpatient EL FOSSELLA, MDA MDA [id number] 14:39:45 15:30:31 MARIA FERNANDA zimmerman 2020-12-15 2020-12-15 Outpatient EL FOSSELLA, MDA MDA [id number] 14:01:01 14:06:41 MARIA FERNANDA zimmerman 2020-11-20 2020-11-24 Inpatient X RUSSELL GIRALDO [facility] PUJA [id number] Univers 00:18:00 16:31:00 [facility] 2020-10-26 2020-10-26 Outpatient R [facility] [id number] Univers 09:00:00 09:00:00 [facility] 2020-10-17 2020-10-17 Outpatient R DIOGO, [facility] [id number] Univers 09:30:00 09:30:00 JACKSON [facility] 2020-07-27 2020-07-27 Outpatient R UNKNOWN, [facility] [id number] Univers 14:30:00 14:30:00 ATTENDING [facility] 2020-07-05 2020-07-05 Outpatient EL TADEO, MDA MDA [id number] 10:29:44 10:55:21 HERRERA zimmerman 2020-04-28 2020-04-29 Inpatient HCAMN DANDRE [id number] [facility] 02:28:00 09:27:09 18 [facility] 2020-04-27 2020-04-27 Outpatient EL FOSSELLA, MDA MDA [id number] 06:26:24 06:26:24 MARIA FERNANDA zimmerman 2020-04-25 2020-04-25 Outpatient EL FOSSELLA, MDA MDA [id number] 15:16:25 23:59:00 MARIA FERNANDA zimmerman 2020-04-25 2020-04-25 Outpatient EL FOSSELLA, MDA MDA [id number] 16:52:13 16:52:13 MARIA FERNANDA zimmerman 2020-04-21 2020-04-21 Outpatient EL FOSSELLA, MDA MDA [id number] 12:34:59 15:51:01 MARIA FERNANDA zimmerman 2020-04-17 2020-04-17 Outpatient EL ROCKY RODRIGUEZ MDA MDA [id number] 11:29:21 23:59:00 Bakari zimmerman 2020-04-17 2020-04-17 Outpatient EL MDA MDA [id number] 09:00:09 11:28:00 Bakari zimmerman 2020-04-17 2020-04-17 Outpatient EL CRANE, MDA MDA [id number] 09:38:52 11:12:52 CODY zimmerman 2020-04-14 2020-04-14 Outpatient EL MDA MDA [id number] MD 11:14:57 23:59:00 Bakari o erasmo 2020-04-14 2020-04-14 Outpatient EL AURELIANO EDWARD MDA MDA [id number] MD 12:35:21 13:51:10 Bakari o erasmo 2020-04-14 2020-04-14 Outpatient EL MDA MDA [id number] MD 08:26:38 11:13:00 Bakari o erasmo 2020-04-13 2020-04-13 Outpatient EL MDA MDA [id number] MD 15:45:00 23:59:00 Bakari o erasmo 2020-04-13 2020-04-13 Outpatient EL MDA MDA [id number] MD 13:53:11 15:44:00 Bakari o erasmo 2020-04-13 2020-04-13 Outpatient EL MDA MDA [id number] MD 13:27:19 13:52:00 Bakari o erasmo 2020-04-13 2020-04-13 Outpatient EL MDA MDA [id number] MD 10:45:00 13:26:00 Bakari o erasmo 2020-04-13 2020-04-13 Outpatient EL ROSA MARIA, MDA MDA [id number] MD 07:39:14 10:44:00 CODY zimmerman 2020-04-12 2020-04-12 Outpatient EL SHANELL, MDA MDA [id number] MD 12:45:00 23:59:00 ORACIO zimmerman 2020-04-11 2020-04-11 Outpatient EL BRENDON, MDA MDA [id number] MD 11:45:00 23:59:00 WILFREDO zimmerman 2020-04-11 2020-04-11 Outpatient EL BRENDON, MDA MDA [id number] MD 11:23:21 11:23:21 WILFREDO zimmerman 2020-03-31 2020-03-31 Outpatient EL CONATJose, MDA MDA [id number] 08:00:00 23:59:00 MAURICIO zimmerman 2020-03-31 2020-03-31 Outpatient EL ROSA MARIA, MDA MDA [id number] MD 08:51:09 09:59:36 CODY zimmerman 2020-03-20 2020-03-20 Outpatient EL ILIESCU, MDA MDA [id number] MD 10:02:47 10:02:47 ORACIO zimmerman 2020-03-20 2020-03-20 Outpatient EL REGINA, MDA MDA [id number] 09:57:25 09:57:25 HAYLEY Bakari o n 2020-03-10 2020-03-10 Outpatient EL REGINA, MDA MDA [id number] 08:10:34 08:10:34 HAYLEY Bakari o n 2020-03-02 2020-03-02 Outpatient EL REGINA, MDA MDA [id number] 12:40:44 23:59:00 HAYLEY Bakari o n 2020-03-02 2020-03-02 Outpatient EL ILIESCU, MDA MDA [id number] 10:20:00 14:05:06 ORACIO Bakari o n 2020-03-02 2020-03-02 Outpatient EL REGINA, MDA MDA [id number] 12:15:00 12:39:00 HAYLEY Bakari o n 2020-03-02 2020-03-02 Outpatient EL ILICALLIECU, MDA MDA [id number] 10:29:25 10:29:25 ORACIO Leesers o n 2020-03-02 2020-03-02 Outpatient EL MDA MDA [id number] MD 10:00:01 10:00:10 Bakari o erasmo 2020-02-29 2020-02-29 Outpatient EL MDA MDA [id number] MD 13:58:52 14:24:33 Bakari o erasmo 2019-08-26 2019-08-26 Outpatient PASCALE Jaimes [facility] [id number] [facility] 12:48:00 12:48:00 [facility] 2019-08-12 2019-08-15 Inpatient HCAMN DANDRE [id number] [facility] 20:09:00 22:33:31 69 [facility] Results Test Description Test Time Test Comments Results Result [facility] e Comments Fractionated 2022-09-13 [employer] [employer] [facility] f Bilirubin 14:14:11 Total<0.3<=1. Willis CARDENAS 2 mg/dLMAYS [facility] Fractionated 2022-09-13 [employer] o f Bilirubin 14:14:11 Total<0.3<=1. Willis CARDENAS 2 mg/dLMAYS [facility] Fractionated 2022-09-13 [employer] [employer] o f Bilirubin 14:14:11 Total<0.3<=1. Willis CARDENAS 2 mg/dLMAYS [facility] Fractionated 2022-09-13 [employer] o f Bilirubin 14:14:11 Total<0.3<=1. Willis CARDENAS 2 mg/dLMAYS [facility] Glomerular Filtration Rate 2022-09-13 14:14:10 Test Item Value Reference Range Interpretation Comme nts eGFR (test code = 105 See_Comment [place] [address]-4) the 2020 CKD-EP I creatinine equation using [...] a for CKD. Testing Perform ed at [facility] Lab Vendor Relationship Manager [facility], [facility] [facility], [address], [place], [place] [address] [Automated message] The sy stem which generated this result transmitted ref erence range: >=60 mL/min/1.7 3 sq. m. The reference range was not used to interpret this result as normal/abnormal . PAIGE (test code = Schedule same day PAIGE) tests[facility] 2022-09-13 14:14:10 Test Item Value Reference Range Interpretation Comments eGFR (test 105 See_Comment The eGFRcr is c alculated code = with the 2020 C KD-EPI 95168-7) creatinine equa tion using creatinin e, patient's [...] eria for CKD. Testing Pe rformed at [facility] Lab [facility], [address] [facility], [address], [place] [address] [Autom ated message] The sy stem which generated this result transmit lakhwinder reference range : >=60 mL/min/1.73 sq. m. The reference range was not used to interpr et this result as normal/abnormal . PAIGE (test Schedule same day code = PAIGE) tests/clinic appt [facility] [place] 2022-09-13 14:14:10 Test Item Value Reference Range Interpretation Comments eGFR (test 105 See_Comment The eGFRcr is c alculated code = with the 2020 C KD-EPI 40494-4) creatinine equa tion using creatinin e, patient's [...] eria for CKD. Testing Pe rformed at [facility] Lab [facility], [address] [facility], [address], [place] [address] [Autom ated message] The sy stem which generated this result transmit lakhwinder reference range : >=60 mL/min/1.73 sq. m. The reference range was not used to interpr et this result as normal/abnormal . PAIGE (test Schedule same day code = PAIGE) tests[facility] 2022-09-13 14:14:10 Test Item Value Reference Range Interpretation Comments eGFR (test 105 See_Comment The eGFRcr is c alculated code = with the 2020 C KD-EPI 86268-0) creatinine equa tion using creatinin e, patient's [...] eria for CKD. Testing Pe rformed at [facility] Lab [facility], [address] [facility], [address], [place] [address] [Autom ated message] The sy stem which generated this result transmit lakhwinder reference range : >=60 mL/min/1.73 sq. m. The reference range was not used to interpr et this result as normal/abnormal . PAIGE (test Schedule same day code = PAIGE) tests/clinic [facility] [id number] 14:14:09 Test Item Value Reference Range Interpretation Comments Total Protein 7.2 g/dL 6.4-8.3 Testing Perfor med (test code = at [facility] 2885-2) Vendor Relationship Manager [facility], [address] [facility], [address], [place], [place] [address] PAIGE (test code = Schedule same day PAIGE) [facility] [id number] 14:14:09 Test Item Value Reference Range Interpretation Comments Total Protein 7.2 g/dL 6.4-8.3 Testing Perfor med (test code = at [facility] 2885-2) Vendor Relationship Manager [facility], [address] [facility], [address], [place], [place] [address] PAIGE (test code = Schedule same day PAIGE) tests/clinic [facility] [id number] 14:14:09 Test Item Value Reference Range Interpretation Comments Total Protein 7.2 g/dL 6.4-8.3 Testing Perfor med (test code = at [facility] 2885-2) Vendor Relationship Manager [facility], [address] [facility], [address], [place], [place] [address] PAIGE (test code = Schedule same day PAIGE) tests[facility] [id number] 14:14:09 Test Item Value Reference Range Interpretation Comments Total Protein 7.2 g/dL 6.4-8.3 Testing Perfor med (test code = at [facility] 2885-2) Vendor Relationship Manager [facility], [address] [facility], [address], [place], [place] [address] PAIGE (test code = Schedule same day PAIGE) tests[facility]inic [facility] [id number] 14:14:08 Test Item Value Reference Range Interpretation Comments Calcium Lvl (test 9.4 mg/dL 8.4-10.2 Testing Pe rformed code = 88159-6) at [facility] Lab Vendor Relationship Manager [facility], [address] [place] [address], [address], [place] [address] PAIGE (test code = Schedule same day PAIGE) tests[facility]clinic [facility] [id number] 14:14:08 Test Item Value Reference Range Interpretation Comments Calcium Lvl (test 9.4 mg/dL 8.4-10.2 Testing Pe rformed code = 71105-8) at [facility] Lab Vendor Relationship Manager [facility], [address] [place] [address], [address], [place] [address] PAIGE (test code = Schedule same day PAIGE) tests[facility]clinic [facility] [id number] 14:14:08 Test Item Value Reference Range Interpretation Comments Calcium Lvl (test 9.4 mg/dL 8.4-10.2 Testing Pe rformed code = 75585-9) at [facility], [address] [place] [address], [address], [place] [address] PAIGE (test code = Schedule same day PAIGE) tests/clinic [facility] [id number] 14:14:08 Test Item Value Reference Range Interpretation Comments Calcium Lvl (test 9.4 mg/dL 8.4-10.2 Testing Pe rformed code = 33922-2) at [facility], [address] [place] [address], [address], [place] [address] PAIGE (test code = Schedule same day PAIGE) tests/clinic [facility] HospitalAlkaline [id number] 14:14:07 Test Item Value Reference Range Interpretation Comments Alk Phos (test 94 U/L 40-129 Testing Perfo rmed at code = 6768-6) [facility] Lab Ambul [facility], [address] [place] [address], [address], [place] [address] PAIGE (test code Schedule same day = PAIGE) tests/clinic [facility] HospitalAlkaline [id number] 14:14:07 Test Item Value Reference Range Interpretation Comments Alk Phos (test 94 U/L 40-129 Testing Perfo rmed at code = 6768-6) [facility] Lab Ambul [facility], [address] [facility], [address], [place] [address] PAIGE (test code Schedule same day = PAIGE) tests/clinic [facility] HospitalAlkaline [id number] 14:14:07 Test Item Value Reference Range Interpretation Comments Alk Phos (test 94 U/L 40-129 Testing Perfo rmed at code = 6768-6) [facility] Lab Ambul [facility], [address] [facility], [address], [place] [address] PAIGE (test code Schedule same day = PAIGE) tests/clinic [facility] Hospital[facility] [id number] 14:14:07 Test Item Value Reference Range Interpretation Comments Alk Phos (test 94 U/L 40-129 Testing Perfo rmed at code = 6768-6) [facility] Lab Ambul [facility], [address] [facility], [address], [place] [address] PAIGE (test code Schedule same day = PAIGE) tests/clinic [facility] HospitalElectrolyte [id number] 14:14:06 Test Item Value Reference Range Interpretation Comments Sodium Lvl (test 141 See_Comment Testing Per formed code = 2951-2) at [facility] Lab Vendor Relationship Manager [facility], [address] [place] [address], [address], [place] [address] [Automated mess age] The system [employer] generated this result transmit lakhwinder reference range : 136 - 145 mEq/L . The reference r ojse was not used to interpret this result as normal/abnormal . Potassium Lvl 3.9 See_Comment Testing Perfor med (test code = at [facility] Lab 2823-3) Vendor Relationship Manager [facility], [address] [place] [address], [address], [place] [address] [Automated mess age] The system [employer] generated this result transmit lakhwinder reference range : 3.5 - 5.1 mEq/L . The reference r jose was not used to interpret this result as normal/abnormal . Chloride (test 105 See_Comment Testing Perfo rmed code = 2075-0) at [facility] Lab Vendor Relationship Manager [facility], [address] [place] [address], [address], [place] [address] [Automated mess age] The system [employer] generated this result transmit lakhwinder reference range : 98 - 107 mEq/L. Th e reference range was not used to interpret this result as normal/abnormal . CO2 (test code = 25 See_Comment Testing Per formed 2028-02) at [facility] Lab Vendor Relationship Manager Bldg, [facility], [address], [place], [place] [address] [Automated mess age] The system [employer] generated this result transmit lakhwinder reference range : 22 - 29 mEq/L. The reference range was not used to interpret this result as normal/abnormal . Anion Gap (test 11 See_Comment Testing Perf ormed code = 19640-4) at [facility] Lab Vendor Relationship Manager [facility], [address] [place] [address], [address], [place] [address] [Automated mess age] The system [employer] generated this result transmit lakhwinder reference range : 4 - 14 mEq/L. The reference range was not used to interpret this result as normal/abnormal . PAIGE (test code = Schedule same day PAIGE) tests/clinic appt [facility] [place] [id number] 14:14:06 Test Item Value Reference Range Interpretation Comments Sodium Lvl (test 141 See_Comment Testing Per formed code = 2951-2) at [facility] Lab Vendor Relationship Manager [facility], [address] [place] [address], [address], [place], [place] [address] [Automated mess age] The system [employer] generated this result transmit lakhwinder reference range : 136 - 145 mEq/L . The reference r jose was not used to interpret this result as normal/abnormal . Potassium Lvl 3.9 See_Comment Testing Perfor med (test code = at [facility] Lab 2823-3) Vendor Relationship Manager [facility], [facility], [address], [place], [place] [address] [Automated mess age] The system [employer] generated this result transmit lakhwinder reference range : 3.5 - 5.1 mEq/L . The reference r jose was not used to interpret this result as normal/abnormal . Chloride (test 105 See_Comment Testing Perfo rmed code = 2075-0) at [facility] Lab [facility], [facility], [address], [place], [place] [address] [Automated mess age] The system [employer] generated this result transmit lakhwinder reference range : 98 - 107 mEq/L. Th e reference range was not used to interpret this result as normal/abnormal . CO2 (test code = 25 See_Comment Testing Per formed 2028-02) at [facility] Vendor Relationship Manager [facility], [facility], [address], [place], [place] [address] [Automated mess age] The system [employer] generated this result transmit lakhwinder reference range : 22 - 29 mEq/L. The reference range was not used to interpret this result as normal/abnormal . Anion Gap (test 11 See_Comment Testing Perf ormed code = 60242-5) at [facility], [address] [place] [address], [address], [place], [place] [address] [Automated mess age] The system [employer] generated this result transmit lakhwinder reference range : 4 - 14 mEq/L. The reference range was not used to interpret this result as normal/abnormal . PAIGE (test code = Schedule same day PAIGE) tests/clinic appt [facility] [place] Myhvt1290-27-03 14:14:06 Test Item Value Reference Range Interpretation Comments Sodium Lvl (test 141 See_Comment Testing Per formed code = 2951-2) at [facility], [address] [place] [address], [address], [place] [address] [Automated mess age] The system [employer] generated this result transmit lakhwinder reference range : 136 - 145 mEq/L . The reference r jose was not used to interpret this result as normal/abnormal . Potassium Lvl 3.9 See_Comment Testing Perfor med (test code = at [facility] 2823-3) Vendor Relationship Manager [facility], [facility], [address], [place], [place] [address] [Automated mess age] The system [employer] generated this result transmit lakhwinder reference range : 3.5 - 5.1 mEq/L . The reference r jose was not used to interpret this result as normal/abnormal . Chloride (test 105 See_Comment Testing Perfo rmed code = 2075-0) at [facility] Vendor Relationship Manager [facility], [facility], [address], [place], [place] [address] [Automated mess age] The system [employer] generated this result transmit lakhwinder reference range : 98 - 107 mEq/L. Th e reference range was not used to interpret this result as normal/abnormal . CO2 (test code = 25 See_Comment Testing Per formed 2028-02) at [facility], [address] [place] [address], [address], [place] [address] [Automated mess age] The system [employer] generated this result transmit lakhwinder reference range : 22 - 29 mEq/L. The reference range was not used to interpret this result as normal/abnormal . Anion Gap (test 11 See_Comment Testing Perf ormed code = 93943-3) at [facility], [address] [place] [address], [address], [place] [address] [Automated mess age] The system [employer] generated this result transmit lakhwinder reference range : 4 - 14 mEq/L. The reference range was not used to interpret this result as normal/abnormal . PAIGE (test code = Schedule same day PAIGE) tests/clinic appt [facility] [place] [id number] 14:14:06 Test Item Value Reference Range Interpretation Comments Sodium Lvl (test 141 See_Comment Testing Per formed code = 2951-2) at [facility], [address] [place] [address], [address], [place] [address] [Automated mess age] The system [employer] generated this result transmit lakhwinder reference range : 136 - 145 mEq/L . The reference r jose was not used to interpret this result as normal/abnormal . Potassium Lvl 3.9 See_Comment Testing Perfor med (test code = at [facility] 2823-3) [facility], [address] [place] [address], [address], [place] [address] [Automated mess age] The system [employer] generated this result transmit lakhwinder reference range : 3.5 - 5.1 mEq/L . The reference r jose was not used to interpret this result as normal/abnormal . Chloride (test 105 See_Comment Testing Perfo rmed code = 2075-0) at [facility], [facility], [address], [place] [address] [Automated mess age] The system [employer] generated this result transmit lakhwinder reference range : 98 - 107 mEq/L. Th e reference range was not used to interpret this result as normal/abnormal . CO2 (test code = 25 See_Comment Testing Per formed 2028-02) at [facility] Vendor Relationship Manager [facility], [address], [address], [place], [place] [address] [Automated mess age] The system [employer]och[employer] (So-Shee) Gold minesic h generated this result transmit lakhwinder reference range : 22 - 29 mEq/L. The reference range was not used to interpret this result as normal/abnormal . Anion Gap (test 11 See_Comment Testing Perf ormed code = 92090-8) at [facility] Vendor Relationship Manager [facility], [address], [address], [place], [place] [address] [Automated mess age] The system Xochitl (So-Shee) Gold minesic h generated this result transmit lakhwinder reference range : 4 - 14 mEq/L. The reference range was not used to interpret this result as normal/abnormal . PAIGE (test code = Schedule same day PAIGE) [facility] [id number] 14:14:05 Test Item Value Reference Range Interpretation Comments Albumin Lvl (test 4.0 See_Comment Testing Pe rformed at code = 1751-7) [facility], [address] [facility], [address], [place] [address] [Automate d message] The sy stem which generated this result transmit lakhwinder reference range : 3.5 - 5.2 gm/dL. Th e reference range was not used to interpret this result as normal/abnormal . PAIGE (test code = Schedule same day PAIGE) tests[facility]inic [facility] [id number] 14:14:05 Test Item Value Reference Range Interpretation Comments Albumin Lvl (test 4.0 See_Comment Testing Pe rformed at code = 1751-7) [facility], [address] [facility], [address], [place] [phone] [Automate d message] The sy stem which generated this result transmit lakhwinder reference range : 3.5 - 5.2 gm/dL. Th e reference range was not used to interpret this result as normal/abnormal . PAIGE (test code = Schedule same day PAIGE) tests[facility] [id number] 14:14:05 Test Item Value Reference Range Interpretation Comments Albumin Lvl (test 4.0 See_Comment Testing Pe rformed at code = 1751-7) [facility], [address], [address], [place] [address] [Automate d message] The sy stem which generated this result transmit lakhwinder reference range : 3.5 - 5.2 gm/dL. Th e reference range was not used to interpret this result as normal/abnormal . PAIGE (test code = Schedule same day PAIGE) tests[facility]inic [facility] [id number] 14:14:05 Test Item Value Reference Range Interpretation Comments Albumin Lvl (test 4.0 See_Comment Testing Pe rformed at code = 1751-7) [facility], [address], [address], [place] [address] [Automate d message] The sy stem which generated this result transmit lakhwinder reference range : 3.5 - 5.2 gm/dL. Th e reference range was not used to interpret this result as normal/abnormal . PAIGE (test code = Schedule same day PAIGE) tests[facility]inic [facility] Aminotransferase 2022-09-13 14:14:04 Test Item Value Reference Range Interpretation Comments AST (test code 12 U/L <=40 Testing Perfo rmed at = 1920-8) [facility], [address], [address], [place] [address] PAIGE (test code Schedule same day = PAIGE) tests[facility]inic [facility] Aminotransferase 2022-09-13 14:14:04 Test Item Value Reference Range Interpretation Comments AST (test code 12 U/L <=40 Testing Perfo rmed at = 1920-8) [facility], [address], [address], [place] [address] PAIGE (test code Schedule same day = PAIGE) tests[facility]inic [facility] Aminotransferase 2022-09-13 14:14:04 Test Item Value Reference Range Interpretation Comments AST (test code 12 U/L <=40 Testing Perfo rmed at = 1920-8) [facility], [address], [address], [place] [address] PAIGE (test code Schedule same day = PAIGE) tests/[facility]inic [facility] Aminotransferase 2022-09-13 14:14:04 Test Item Value Reference Range Interpretation Comments AST (test code 12 U/L <=40 Testing Perfo rmed at = 1920-8) [facility], [address], [address], [place] [address] PAIGE (test code Schedule same day = PAIGE) [facility] Test Item Value Reference Range Interpretation Comments ALT (test code 7 U/L <=41 Testing Perfo rmed at = 1742-6) [facility], [address], [address], [place] [address] PAIGE (test code Schedule same day = PAIGE) [facility] 14:14:03 Test Item Value Reference Range Interpretation Comments ALT (test code 7 U/L <=41 Testing Perfo rmed at = 1742-6) [facility], [address], [address], [place] [address] PAIGE (test code Schedule same day = PAIGE) [facility] 14:14:03 Test Item Value Reference Range Interpretation Comments ALT (test code 7 U/L <=41 Testing Perfo rmed at = 1742-6) [facility], [address], [address], [place] [address] PAIGE (test code Schedule same day = PAIGE) tests/clinic [place] [id number] 14:14:03 Test Item Value Reference Range Interpretation Comments ALT (test code 7 U/L <=41 Testing Perfo rmed at = 1742-6) [facility], [address], [address], [place] [address] PAIGE (test code Schedule same day = PAIGE) tests/clinic appt [facility].Serum [id number] 14:14:01 Test Item Value Reference Range Interpretation Comments Creatinine (test code 0.62 mg/dL 0.67-1.17 L Testin g Performed = 2160-0) at [facility], [address] [place] [address], [address], [place] [address] PAIGE (test code = PAIGE) Schedule same day tests/clinic appt Lab Interpretation Abnormal (test code = 06827-8) [facility].Serum [id number] 14:14:01 Test Item Value Reference Range Interpretation Comments Creatinine (test code 0.62 mg/dL 0.67-1.17 L Testin g Performed = 2160-0) at [facility], [address] [place] [address], [address], [place] [address] PAIGE (test code = PAIGE) Schedule same day tests/clinic appt Lab Interpretation Abnormal (test code = 38513-8) [facility].Serum Szlziapsja2335-29-54 14:14:01 Test Item Value Reference Range Interpretation Comments Creatinine (test code 0.62 mg/dL 0.67-1.17 L Testin g Performed = 2160-0) at [facility], [address] [place] [address], [address], [place] [address] PAIGE (test code = PAIGE) Schedule same day tests/clinic appt Lab Interpretation Abnormal (test code = 90230-2) [facility].Serum [id number] 14:14:01 Test Item Value Reference Range Interpretation Comments Creatinine (test code 0.62 mg/dL 0.67-1.17 L Testin g Performed = 2160-0) at [facility] Vendor Relationship Manager Bldg, [address] [place] [address], [address], [place] [address] PAIGE (test code = PAIGE) Schedule same day tests/clinic appt Lab Interpretation Abnormal (test code = 96675-3) [facility] 14:14:00 Test Item Value Reference Range Interpretation Comments BUN (test code 10 mg/dL 6-23 Testing Perfo rmed at = 3094-0) [facility], [address], [address], [place] [address] PAIGE (test code Schedule same day = PAIGE) tests[facility]inic [facility] 14:14:00 Test Item Value Reference Range Interpretation Comments BUN (test code 10 mg/dL 6-23 Testing Perfo rmed at = 3094-0) [facility], [address], [address], [place] [address] PAIGE (test code Schedule same day = PAIEG) tests[facility]inic [facility] 14:14:00 Test Item Value Reference Range Interpretation Comments BUN (test code 10 mg/dL 6-23 Testing Perfo rmed at = 3094-0) [facility] Ambul[facility] Care d[facility], [address], [address], [place] [address] PAIGE (test code Schedule same day = PAIGE) tests[facility]clinic [facility] 14:14:00 Test Item Value Reference Range Interpretation Comments BUN (test code 10 mg/dL 6-23 Testing Perfo rmed at = 3094-0) [facility] Ambul[facility] d[facility], [address], [address], [place] [address] PAIGE (test code Schedule same day = PAIGE) tests[facility]inic [facility] [id number] 14:13:59 Test Item Value Reference Range Interpretation Comments Glucose Level (test 102 mg/dL 70-99 H Effectiv e 01/24/16, code = 2345-7) the glucose reference intervals have been updated ba sed on [place] Diabetes [employer] guidelines (Standards of Medical Care in Diabetes 2016. Diabetes Care 2016; 39: S13-S22).Fastin g blood glucose:Normal: 70-99 mg/dLImpaired fasting glucose (increased risk for diabetes or pre-diabetes): 100-125 mg/dLDiabetes mellitus: >/=12 6 mg/dL Random bl ood glucose:Normal: 70-199 mg/dLNot e: Random glucose >100 mg/dL is associated with increased risk for diabetes Testin g Performed at B [facility] Vendor Relationship Manager Bldg, [address], [address], [place] [address] PAIGE (test code = PAIGE) Schedule same day tests/clinic appt Lab Interpretation Abnormal (test code = 80385-3) [facility] [id number] 14:13:59 Test Item Value Reference Range Interpretation Comments Glucose Level (test 102 mg/dL 70-99 H Effectiv e 01/24/16, code = 2345-7) the glucose reference intervals have been updated ba sed on [place] Diabetes [employer] guidelines (Standards of Medical Care in Diabetes 2016. Diabetes Care 2016; 39: S13-S22).Fastin g blood glucose:Normal: 70-99 mg/dLImpaired fasting glucose (increased risk for diabetes or pre-diabetes): 100-125 mg/dLDiabetes mellitus: >/=12 6 mg/dL Random bl ood glucose:Normal: 70-199 mg/dLNot e: Random glucose >100 mg/dL is associated with increased risk for diabetes Testin g Performed at [facility] Vendor Relationship Manager [facility], [facility], [address], [place] [address] PAIGE (test code = PAIGE) Schedule same day tests/clinic appt Lab Interpretation Abnormal (test code = 56242-0) [facility] [id number] 14:13:59 Test Item Value Reference Range Interpretation Comments Glucose Level (test 102 mg/dL 70-99 H Effectiv e 01/24/16, code = 2345-7) the glucose reference intervals have been updated ba sed on [place] Diabetes [employer] guidelines (Standards of Medical Care in Diabetes 2016. Diabetes Care 2016; 39: S13-S22).Fastin g blood glucose:Normal: 70-99 mg/dLImpaired fasting glucose (increased risk for diabetes or pre-diabetes): 100-125 mg/dLDiabetes mellitus: >/=12 6 mg/dL Random bl ood glucose:Normal: 70-199 mg/dLNot e: Random glucose >100 mg/dL is associated with increased risk for diabetes Testin g Performed at [facility] Lab Vendor Relationship Manager [facility], [address] [facility], [address], [place] [address] PAIGE (test code = PAIGE) Schedule same day tests/clinic appt Lab Interpretation Abnormal (test code = 37567-8) [facility] [id number] 14:13:59 Test Item Value Reference Range Interpretation Comments Glucose Level (test 102 mg/dL 70-99 H Effectiv e 01/24/16, code = 2345-7) the glucose reference intervals have been updated ba sed on [place] Diabetes [employer] guidelines (Standards of Medical Care in Diabetes 2016. Diabetes Care 2016; 39: S13-S22).Fastin g blood glucose:Normal: 70-99 mg/dLImpaired fasting glucose (increased risk for diabetes or pre-diabetes): 100-125 mg/dLDiabetes mellitus: >/=12 6 mg/dL Random bl ood glucose:Normal: 70-199 mg/dLNot e: Random glucose >100 mg/dL is associated with increased risk for diabetes Testin g Performed at [facility] Lab Vendor Relationship Manager [facility], [facility], [address], [place] [address] PAIGE (test code = PAIGE) Schedule same day tests/clinic appt Lab Interpretation Abnormal (test code = 67889-4) [facility] CenterPO [id number] 13:41:08 Test Item Value Reference Range Interpretation Comments POC Crea (test 0.6 mg/dL 0.6-1.3 Medications, code = 83537-6) especially h ydroxyurea or supplements, such as [...] 106 See_Comment The eGFRcr is code = 45513) calculated wit h the 2020 CKD-EPI creatinine equa tion using creatinin e, patient's age, and sex for adults 18 y ears of age and older. Other factors, especi ally muscle mass, ma y affect accuracy and need to be considered.Acco rding to the Kidney D isease: Improving Globa l Outcomes (KDIGO ) CKD Work Group 2012 Clinical Practi ce Guideline, slicing machine tender henrry kidney disease (CKD) is defined as [...] Yes (test code = 6672) Performing Lab [facility] (test code = [facility] [address]) Clinical Lab, [address] [place] [address]; Gear Tooth Lapping Machine Operator: Aletha Arciniega MD; Waived Point of Care Testing - Rosina real MD [facility] MD [facility] [id number] 13:41:08 Test Item Value Reference Range Interpretation Comments POC Crea (test 0.6 mg/dL 0.6-1.3 Medications, code = 45964-2) especially h ydroxyurea or supplements, such as [...] 106 See_Comment The eGFRcr is code = 97612) calculated wit h the 2020 CKD-EPI creatinine equa tion using creatinin e, patient's age, and sex for adults 18 y ears of age and older. Other factors, especi ally muscle mass, ma y affect accuracy and need to be considered.Acco rding to the Kidney D isease: Improving Globa l Outcomes (KDIGO ) CKD Work Group 2012 Clinical Practi ce Guideline, slicing machine tender henrry kidney disease (CKD) is defined as [...] Yes (test code = 6672) Performing Lab [facility] (test code = [facility] [address]) Clinical Lab, [address] [facility], [place], [place] [address]; Gear Tooth Lapping Machine Operator: Aletha Arciniega MD; Waived Point of Care Testing - Rosina real MD [facility] Wjkkqoeicu5839-11-07 13:41:08 Test Item Value Reference Range Interpretation Comments POC Crea (test 0.6 mg/dL 0.6-1.3 Medications, code = 59359-0) especially h ydroxyurea or supplements, such as [...] 106 See_Comment The eGFRcr is code = 77277) calculated wit h the 2020 CKD-EPI creatinine equa tion using creatinin e, patient's age, and sex for adults 18 y ears of age and older. Other factors, especi ally muscle mass, ma y affect accuracy and need to be considered.Acco rding to the Kidney D isease: Improving Globa l Outcomes (KDIGO ) CKD Work Group 2012 Clinical Practi ce Guideline, slicing machine tender henrry kidney disease (CKD) is defined as [...] code = 6672) Performing Lab [facility] (test code = [facility] [place] [address]) Clinical Lab, [address] [facility], [place], [place] [address]; Gear Tooth Lapping Machine Operator: Aletha Arciniega MD; Waived Point of Care Testing - Rosina real MD [facility] Mpabgqdryw5947-16-83 13:41:08 Test Item Value Reference Range Interpretation Comments POC Crea (test 0.6 mg/dL 0.6-1.3 Medications, code = 28030-3) especially h ydroxyurea or supplements, such as [...] 106 See_Comment The eGFRcr is code = 24932) calculated wit h the 2020 CKD-EPI creatinine equa tion using creatinin e, patient's age, and sex for adults 18 y ears of age and older. Other factors, especi ally muscle mass, ma y affect accuracy and need to be considered.Acco rding to the Kidney D isease: Improving Globa l Outcomes (KDIGO ) CKD Work Group 2012 Clinical Practi ce Guideline, slicing machine tender henrry kidney disease (CKD) is defined as [...] Yes (test code = 6672) Performing Lab [facility] (test code = [facility] [place] [address]) Clinical Lab, [address] [place] [address], [place], [place] [address]; Gear Tooth Lapping Machine Operator: Aletha Arciniega MD; Waived Point of Care Testing - Rosina real MD [facility] MehnuvDukuzkwbjjlf1818-26-55 13:32:19 Test Item Value Reference Range Interpretation Comments Neutrophil % (test 48.8 % 42.0-66.0 As part o f code = 770-8) Differential performed at [facility], [address] [place] [address], [address], [place] [address] Lymphocyte % (test 34.8 % 24.0-44.0 code = 736-9) Monocyte % (test code 9.1 % 2.0-7.0 H = 5905-5) Eosinophil % (test 6.6 % 1.0-4.0 H code = 713-8) Basophil % (test code 0.7 % 0.0-1.0 = 706-2) IGRE % (test code = 0.0 % 0.0-0.4 IGRE % c ount 22231-6) includes Metamyelocytes, Myelocytes, and Promyelocytes. As part of Differential performed at [facility], [address] [place], [place] [address], [address], [place] [address] Neutrophil Abs (test 3.37 K/uL 1.70-7.30 code = 751-8) Lymphocyte Abs (test 2.41 K/uL 1.00-4.80 code = 731-0) Monocyte Abs (test 0.63 K/uL 0.08-0.70 code = 742-7) Eosinophil Abs (test 0.46 K/uL 0.04-0.40 H code = 711-2) Basophil Abs (test 0.05 K/uL 0.00-0.10 code = 704-7) IG Abs (test code = 0.00 K/uL 0.00-0.04 85095-7) PAIGE (test code = PAIGE) Schedule same day tests/clinic appt Lab Interpretation Abnormal (test code = 00640-8) [facility] TsriofEhdccyrobcfh8056-78-39 13:32:19 Test Item Value Reference Range Interpretation Comments Neutrophil % (test 48.8 % 42.0-66.0 As part o f code = 770-8) Differential performed at [facility], [facility], [address], [place] [address] Lymphocyte % (test 34.8 % 24.0-44.0 code = 736-9) Monocyte % (test code 9.1 % 2.0-7.0 H = 5905-5) Eosinophil % (test 6.6 % 1.0-4.0 H code = 713-8) Basophil % (test code 0.7 % 0.0-1.0 = 706-2) IGRE % (test code = 0.0 % 0.0-0.4 IGRE % c ount 00776-5) includes Metamyelocytes, Myelocytes, and Promyelocytes. As part of Differential performed at [facility], [address] [place] [address], [address], [place] [address] Neutrophil Abs (test 3.37 K/uL 1.70-7.30 code = 751-8) Lymphocyte Abs (test 2.41 K/uL 1.00-4.80 code = 731-0) Monocyte Abs (test 0.63 K/uL 0.08-0.70 code = 742-7) Eosinophil Abs (test 0.46 K/uL 0.04-0.40 H code = 711-2) Basophil Abs (test 0.05 K/uL 0.00-0.10 code = 704-7) IG Abs (test code = 0.00 K/uL 0.00-0.04 85500-8) PAIGE (test code = PAIGE) Schedule same day tests/clinic appt Lab Interpretation Abnormal (test code = 38932-4) [facility] [id number] 13:32:19 Test Item Value Reference Range Interpretation Comments Neutrophil % (test 48.8 % 42.0-66.0 As part o f code = 770-8) Differential performed at [facility], [address] [place] [address], [address], [place] [address] Lymphocyte % (test 34.8 % 24.0-44.0 code = 736-9) Monocyte % (test code 9.1 % 2.0-7.0 H = 5905-5) Eosinophil % (test 6.6 % 1.0-4.0 H code = 713-8) Basophil % (test code 0.7 % 0.0-1.0 = 706-2) IGRE % (test code = 0.0 % 0.0-0.4 IGRE % c ount 92771-8) includes Metamyelocytes, Myelocytes, and Promyelocytes. As part of Differential performed at [facility], [address] [place] [address], [address], [place] [address] Neutrophil Abs (test 3.37 K/uL 1.70-7.30 code = 751-8) Lymphocyte Abs (test 2.41 K/uL 1.00-4.80 code = 731-0) Monocyte Abs (test 0.63 K/uL 0.08-0.70 code = 742-7) Eosinophil Abs (test 0.46 K/uL 0.04-0.40 H code = 711-2) Basophil Abs (test 0.05 K/uL 0.00-0.10 code = 704-7) IG Abs (test code = 0.00 K/uL 0.00-0.04 91349-6) PAIGE (test code = PAIGE) Schedule same day tests/clinic appt Lab Interpretation Abnormal (test code = 60821-6) [facility] 13:32:19 Test Item Value Reference Range Interpretation Comments Neutrophil % (test 48.8 % 42.0-66.0 As part o f code = 770-8) Differential performed at [facility], [address] [facility], [address], [place] [address] Lymphocyte % (test 34.8 % 24.0-44.0 code = 736-9) Monocyte % (test code 9.1 % 2.0-7.0 H = 5905-5) Eosinophil % (test 6.6 % 1.0-4.0 H code = 713-8) Basophil % (test code 0.7 % 0.0-1.0 = 706-2) IGRE % (test code = 0.0 % 0.0-0.4 IGRE % c ount 89463-5) includes Metamyelocytes, Myelocytes, and Promyelocytes. As part of Differential performed at [facility], [address] [facility], [address], [place] [address] Neutrophil Abs (test 3.37 K/uL 1.70-7.30 code = 751-8) Lymphocyte Abs (test 2.41 K/uL 1.00-4.80 code = 731-0) Monocyte Abs (test 0.63 K/uL 0.08-0.70 code = 742-7) Eosinophil Abs (test 0.46 K/uL 0.04-0.40 H code = 711-2) Basophil Abs (test 0.05 K/uL 0.00-0.10 code = 704-7) IG Abs (test code = 0.00 K/uL 0.00-0.04 39385-2) PAIGE (test code = PAIGE) Schedule same day tests/clinic appt Lab Interpretation Abnormal (test code = 04995-6) [facility].[id number] 13:32:09 Test Item Value Reference Range Interpretation [...] individua l orderable testi ng performed at [facility], [facility], [address], [place], [place] [address] [Automated mess age] The system [employer] h generated this result transmit lakhwinder reference range : 14.0 - 18.0 gm/ dL. The reference r jose was not used to interpret this result as normal/abnormal . Hct (test code = 45.2 % 40.0-54.0 As part of CBC or 4544-3) as an individua l orderable testi ng performed at [facility], [facility], [address], [place] [address] MCV (test code = [...] (test code = 62.4 fL 35.1-46.3 H 04513-5) RDW-CV (test code = 17.9 % 12.0-15.5 H 788-0) Platelet count (test 310 K/uL 140-440 As part of CBC or code = 777-3) as an individu al orderable testi ng performed at [facility], [facility], [address], [place] [address] MPV (test code = 9.6 fL 4.0-10.4 86770-3) INRBC (test code = 0.0 % <=0.0 The INRBC 85124-4) (instrument NRB C) value reflects the enumerationof nucleated red b lood cells contained in a 200uL sampleo f whole blood analyzed by the instrument. Thi s value maydiffer from the NRBC v alue reported in a manual differential,wh ich is based on a 1 00 cell differenti al. As part of CBC testing perform ed at [facility] Vendor Relationship Manager [id number] [facility], [address], [place] [address] PAIGE (test code = PAIGE) Schedule same day tests/clinic appt Lab Interpretation Abnormal (test code = 25134-7) [facility] [place].[id number] 13:32:09 Test Item Value Reference Range Interpretation [...] individua l orderable testi ng performed at [facility], [address] [facility], [address], [place], [place] [address] [Automated mess age] The system ic h generated this result transmit lakhwinder reference range : 14.0 - 18.0 gm/ dL. The reference r jose was not used to interpret this result as normal/abnormal . Hct (test code = 45.2 % 40.0-54.0 As part of CBC or 4544-3) as an individua l orderable testi ng performed at [facility], [address] [facility], [address], [place] [address] MCV (test code = 96 fL 82-98 787-2) MCH (test code = 30.8 pg 27.0-31.0 785-6) MCHC (test code = 32.1 See_Comment [Automate d 808-4) message] The sy stem which generated this result transmitted reference range : 31.0 - 36.0 gm/ dL. The reference r jose was not used to interpret this result as normal/abnormal . RDW-SD (test code = 62.4 fL 35.1-46.3 H 31130-8) RDW-CV (test code = 17.9 % 12.0-15.5 H 788-0) Platelet count (test 310 K/uL 140-440 As part of CBC or code = 777-3) as an individu al orderable testi ng performed at [facility] Vendor Relationship Manager Bld[facility], [address] [facility], [address], [place] [address] MPV (test code = 9.6 fL 4.0-10.4 21732-0) INRBC (test code = 0.0 % <=0.0 The INRBC 72950-7) (instrument NRB C) value reflects the enumerationof nucleated red b lood cells contained in a 200uL sampleo f whole blood analyzed by the instrument. Thi s value maydiffer from the NRBC v alue reported in a manual differential,wh ich is based on a 1 00 cell differenti al. As part of CBC testing perform ed at [facility] Vendor Relationship Manager [id number] [facility], [address], [place] [address] PAIGE (test code = PAIGE) Schedule same day tests/clinic appt Lab Interpretation Abnormal (test code = 03400-5) [facility] [place].[id number] 13:32:09 Test Item Value Reference Range Interpretation [...] individua l orderable testi ng performed at [facility] Vendor Relationship Manager Bldg, [facility], [address], [place] [address] [Automated mess age] The system whic h generated this result transmit lakhwinder reference range : 14.0 - 18.0 gm/ dL. The reference r jose was not used to interpret this result as normal/abnormal . Hct (test code = 45.2 % 40.0-54.0 As part of CBC or 4544-3) as an individua l orderable testi ng performed at [facility] Vendor Relationship Manager [facility], [address] [facility], [address], [place] [address] MCV (test code = [...] (test code = 62.4 fL 35.1-46.3 H 66167-2) RDW-CV (test code = 17.9 % 12.0-15.5 H 788-0) Platelet count (test 310 K/uL 140-440 As part of CBC or code = 777-3) as an individu al orderable testi ng performed at [facility] Vendor Relationship Manager [facility], [address] [facility], [address], [place] [address] MPV (test code = 9.6 fL 4.0-10.4 32487-9) INRBC (test code = 0.0 % <=0.0 The INRBC 46235-1) (instrument NRB C) value reflects the enumerationof nucleated red b lood cells contained in a 200uL sampleo f whole blood analyzed by the instrument. Thi s value maydiffer from the NRBC v alue reported in a manual differential,wh ich is based on a 1 00 cell differenti al. As part of CBC testing perform ed at [facility] Lab Vendor Relationship Manager [id number] [facility], [address], [place] [address] PAIGE (test code = PAIGE) Schedule same day tests/clinic appt Lab Interpretation Abnormal (test code = 00258-6) [facility] [place] [facility] [place].[id number] 13:32:09 Test Item Value Reference Range Interpretation [...] individua l orderable testi ng performed at [facility], [address] [facility], [address], [place], [place] [address] [Automated mess age] The system whic h generated this result transmit lakhwinder reference range : 14.0 - 18.0 gm/ dL. The reference r jose was not used to interpret this result as normal/abnormal . Hct (test code = 45.2 % 40.0-54.0 As part of CBC or 4544-3) as an individua l orderable testi ng performed at [facility], [address] [facility], [address], [place] [address] MCV (test code = [...] (test code = 62.4 fL 35.1-46.3 H 80162-2) RDW-CV (test code = 17.9 % 12.0-15.5 H 788-0) Platelet count (test 310 K/uL 140-440 As part of CBC or code = 777-3) as an individu al orderable testi ng performed at [facility], [address] [facility], [address], [place] [address] MPV (test code = 9.6 fL 4.0-10.4 82932-2) INRBC (test code = 0.0 % <=0.0 The INRBC 50710-8) (instrument NRB C) value reflects the enumerationof nucleated red b lood cells contained in a 200uL sampleo f whole blood analyzed by the instrument. Thi s value maydiffer from the NRBC v alue reported in a manual differential,wh ich is based on a 1 00 cell differenti al. As part of CBC testing perform ed at [facility] Lab Vendor Relationship Manager [id number] [facility], [address], [place] [address] PAIGE (test code = PAIGE) Schedule same day tests/clinic appt Lab Interpretation Abnormal (test code = 64775-0) [facility] 17:30:06 Test Item Value Reference Range Interpretation Comments T3 Total (test code = 3053-6) 153 ng/dL 80-200 [facility]T320[facility] 17:30:06 Test Item Value Reference Range Interpretation Comments T3 Total (test code = 3053-6) 153 ng/dL 80-200 [facility]T32022-12-09 17:30:06 Test Item Value Reference Range Interpretation Comments T3 Total (test code = 3053-6) 153 ng/dL 80-200 [facility]T320[facility]-12-09 17:30:06 Test Item Value Reference Range Interpretation Comments T3 Total (test code = 3053-6) 153 ng/dL 80-200 [facility]T32022-12-09 17:30:06 Test Item Value Reference Range Interpretation Comments T3 Total (test code = 3053-6) 153 ng/dL 80-200 [facility]T32022-12-09 17:30:06 Test Item Value Reference Range Interpretation Comments T3 Total (test code = 3053-6) 153 ng/dL 80-200 [facility] 16:45:54 Test Item Value Reference Range Interpretation Comments T4 Free (test code 1.01 ng/dL 0.93-1.70 Testing P erformed at B = 3024-7) Lab Vendor Relationship Manager [facility], [address] [facility], [address], [place] [address] [facility] 16:45:54 Test Item Value Reference Range Interpretation Comments T4 Free (test code 1.01 ng/dL 0.93-1.70 Testing P erformed at B = 3024-7) Lab Vendor Relationship Manager [facility], [address], [address], [address] [id number] 16:45:54 Test Item Value Reference Range Interpretation Comments T4 Free (test code 1.01 ng/dL 0.93-1.70 Testing P erformed at B = 3024-7) Lab Vendor Relationship Manager [facility], [address], [address], [address] [id number] 16:45:54 Test Item Value Reference Range Interpretation Comments T4 Free (test code 1.01 ng/dL 0.93-1.70 Testing P erformed at B = 3024-7) Lab Vendor Relationship Manager [facility], [address], [address], [address] [id number] 16:45:54 Test Item Value Reference Range Interpretation Comments T4 Free (test code 1.01 ng/dL 0.93-1.70 Testing P erformed at B = 3024) Lab Vendor Relationship Manager [facility], [address], [address], [address] [id number] 16:45:54 Test Item Value Reference Range Interpretation Comments T4 Free (test code 1.01 ng/dL 0.93-1.70 Testing P erformed at B = 3024) Lab Vendor Relationship Manager [facility], [address], [address], [address]TSH2022-12-09 16:45:52 Test Item Value Reference Range Interpretation Comments TSH (test code = 0.65 See_Comment Note: New M ethodology and 02646-9) Reference Range change effective 2017 at 1400 Testing Perform ed at [facility] Lab Vendor Relationship Manager [facility], [address], [address], [place] [address] [Automated mess age] The system which ge nerated this result transmit lakhwinder reference range : 0.27 - 4.20 mcunit/mL. The reference range was not used to interpr et this result as paras l/abnormal. [facility] CenterTSH[facility] 16:45:52 Test Item Value Reference Range Interpretation Comments TSH (test code = 0.65 See_Comment Note: New M ethodology and 17019-8) Reference Range change effective 2017 at 1400 Testing Perform ed at [facility] Vendor Relationship Manager [facility], [address], [address], [place] [address] [Automated mess age] The system which ge nerated this result transmit lakhwinder reference range : 0.27 - 4.20 mcunit/mL. The reference range was not used to interpr et this result as paras l/abnormal. [facility] 16:45:52 Test Item Value Reference Range Interpretation Comments TSH (test code = 0.65 See_Comment Note: New Tate ethodology and 50460-2) Reference Range change effective 2017 at 1400 Testing Perform ed at [facility], [address], [address], [place] [address] [Automated mess age] The system which ge nerated this result transmit lakhwinder reference range : 0.27 - 4.20 mcunit/mL. The reference range was not used to interpr et this result as paras l/abnormal. [facility] 16:45:52 Test Item Value Reference Range Interpretation Comments TSH (test code = 0.65 See_Comment Note: New M ethodology and 98745-9) Reference Range change effective 2017 at 1400 Testing Perform ed at [facility] Vendor Relationship Manager [facility], [address], [address], [place] [address] [Automated mess age] The system which ge nerated this result transmit lakhwinder reference range : 0.27 - 4.20 mcunit/mL. The reference range was not used to interpr et this result as paras l/abnormal. [facility] CenterTSH[facility] 16:45:52 Test Item Value Reference Range Interpretation Comments TSH (test code = 0.65 See_Comment Note: New M ethodology and 35688-4) Reference Range change effective 2017 at 1400 Testing Perform ed at [facility] Vendor Relationship Manager [facility], [address], [address], [place] [address] [Automated mess age] The system which ge nerated this result transmit lakhwinder reference range : 0.27 - 4.20 mcunit/mL. The reference range was not used to interpr et this result as paras l/abnormal. [facility] CenterTSH[facility] 16:45:52 Test Item Value Reference Range Interpretation Comments TSH (test code = 0.65 See_Comment Note: Gerson Ybarra ethodology and 03222-0) Reference Range change effective 2017 at 1400 Testing Perform ed at [facility] Lab Vendor Relationship Manager [facility], [address], [address], [place] [address] [Automated mess age] The system which ge nerated this result transmit lakhwinder reference range : 0.27 - 4.20 mcunit/mL. The reference range was not used to interpr et this result as paras l/abnormal. [facility] CenterFractionated [id number] 16:32:38 Test Item Value Reference Range Interpretation Comments Bili Total (test 0.4 mg/dL See_Comment Indocyanine Green (ICG) code = 1975-2) may cause fal sely elevated biliru bin results. Total and direct bilirubin must not be measured from s amples containing indo cyanine green. False el evation of total bilirubin can be seen in patient s with IgG concentrations above 28 g/L.Testing Per formed at [facility] Lab Ambulat [facility], [address], [address], [place] [address] [Automate d message] The system whic h generated this result transmitted ref erence range: <=1.2. T he reference range was not used to interpr et this result as normal/abnormal . Bili Direct (test See_Comment Indocyanin e Green (ICG) code = 1967-7) may cause fal sely elevated biliru bin results. Total and direct bilirubin must not be measured from s amples containing indo cyanine green. Testing Performed at [facility], [address], [address], [place] [address] [Autom ated message] The sy stem which generated this result transmitted ref erence range: <=0.3. T he reference range was not used to interpr et this result as normal/abnormal . Bili Indirect (test See Note 0.0-0.9 Unable t o calculate code = 1970-06) Indirect Bili ruffin result due to some par ameters are outside rep ortable rangeTesting Pe rformed at [facility] Lab [facility], [address] [facility], [address], [place] [address] [facility] CenterFractionated [id number] 16:32:38 Test Item Value Reference Range Interpretation [...] concentrations above 28 g/L.Testing Per formed at [facility] Lab [facility], [address] [facility], [address], [place] [address] Bili Direct (test <=0.3 Indocyanin e Green (ICG) code = 1967-12) may cause fal sely elevated biliru bin results. Total and direct bilirubin must not be measured from s amples containing indo cyanine green. Testing Performed at [facility] Lab [facility], [address] [facility], [address], [place] [address] Bili Indirect (test See Note 0.0-0.9 Unable t o calculate code = 1970-06) Indirect Bili ruffin result due to some par ameters are outside rep ortable rangeTesting Pe rformed at [facility] Lab [facility], [address] [facility], [address], [place] [address] [facility] CenterGlomerular Filtration Rate 2022-06-07 16:32:36 Test Item Value Reference Range Interpretation Comments eGFR (test code = 103 See_Comment The [place]GFRcr [place] [address]) the 2020 CKD-EP I creatinine equation using [...] a for CKD. Testing Perform ed at [facility] Vendor Relationship Manager [facility], [address] [facility], [address], [place], [place] [address] [Automated message] The [employer] stem which generated this result transmitted ref erence range: >=60 mL/min/1.7 3 sq. m. The reference range was not used to interpret th is result as normal/abnormal . [facility] [place]Gl[place] Filtration Rate 2022-06-07 16:32:36 Test Item Value Reference Range Interpretation Comments eGFR (test code = 103 See_Comment [place]GFRcr [place] [address]) the 2020 CKD-EP I creatinine equation using [...] a for CKD. Testing Perform ed at [facility] Lab Vendor Relationship Manager [facility], [address], [address], [place], [place] [address] [Automated message] The sy stem which generated this result transmitted ref erence range: >=60 mL/min/1.7 3 sq. m. The reference range was not used to interpret th is result as normal/abnormal . [facility] CenterUric [id number] 16:32:35 Test Item Value Reference Range Interpretation Comments Uric Acid (test 5.3 mg/dL 3.4-7.0 Testing Perf ormed at [facility] code = 3084-1) Lab Ambulator y Care [facility], [address], [place] [address] [facility] CenterUric [id number] 16:32:35 Test Item Value Reference Range Interpretation Comments Uric Acid (test 5.3 mg/dL 3.4-7.0 Testing Perf ormed at [facility] code = 3084-1) Lab Ambulator y Care [facility], [address], [address], [place] [address] [facility] CenterU[facility] [id number] 16:32:35 Test Item Value Reference Range Interpretation Comments Uric Acid (test 5.3 mg/dL 3.4-7.0 Testing Perf ormed at [facility] code = 3084-1) Lab Ambulator y Care [facility], [address], [address], [place] [address] [facility] CenterUric [id number] 16:32:35 Test Item Value Reference Range Interpretation Comments Uric Acid (test 5.3 mg/dL 3.4-7.0 Testing Perf ormed at [facility] code = 3084-1) Lab Ambulator y Care [facility], [address], [address], [place] [address] [facility] CenterU[facility] [id number] 16:32:35 Test Item Value Reference Range Interpretation Comments Uric Acid (test 5.3 mg/dL 3.4-7.0 Testing Perf ormed at B code = 3084-1) Lab Ambulator y Care Bl, [address], [address], [place] [address] [facility] CenterU[facility] [id number] 16:32:35 Test Item Value Reference Range Interpretation Comments Uric Acid (test 5.3 mg/dL 3.4-7.0 Testing Perf ormed at B code = 3084-1) Lab Ambulator y Care Bl, [address], [address], [place] [address] [facility] CenterTotal [id number] 16:32:34 Test Item Value Reference Range Interpretation Comments Total Protein (test 7.0 g/dL 6.4-8.3 Testing Performed at [facility] code = 2885-2) Lab Ambulator y Care [facility], [address], [address], [place] [address] [facility] CenterTotal [id number] 16:32:34 Test Item Value Reference Range Interpretation Comments Total Protein (test 7.0 g/dL 6.4-8.3 Testing Performed at B code = 2885-2) Lab Ambulator y Care [facility], [address], [address], [place] [address] [facility] CenterMagnesium [id number] 16:32:33 Test Item Value Reference Range Interpretation Comments Magnesium (test code = 1.9 mg/dL 1.6-2.6 [place] [address]-9) [facility] Lab Ambulat ory Care [facility], [address], [place] [address] [facility] CenterMagnesium [id number] 16:32:33 Test Item Value Reference Range Interpretation Comments Magnesium (test code = 1.9 mg/dL 1.6-2.6 [place] [address]-9) [facility] Lab Ambulat ory Care dg, [address], [place] [address] [facility] CenterMagnesium [id number] 16:32:33 Test Item Value Reference Range Interpretation Comments Magnesium (test code = 1.9 mg/dL 1.6-2.6 [place] [address]-9) [facility] Lab Ambulat ory Care Bldg, [address], [place] [address] [facility] CenterMagnesium [id number] 16:32:33 Test Item Value Reference Range Interpretation Comments Magnesium (test code = 1.9 mg/dL 1.6-2.6 [place] [address]-2) [facility] Lab Ambulat ory Care Bldg, [address], [place] [address] [facility] [facility] Center[facility] [id number] 16:32:33 Test Item Value Reference Range Interpretation Comments Magnesium (test code = 1.9 mg/dL 1.6-2.6 [place] [address]-9) [facility] Lab Ambulat ory Care Bldg, [address], [place] [address] [facility] CenterMagn[facility] [id number] 16:32:33 Test Item Value Reference Range Interpretation Comments Magnesium (test code = 1.9 mg/dL 1.6-2.6 [place] [address]-2) [facility] Lab Ambulat ory Care Bldg, [address], [address], [place] [address] [facility] CenterCalcium Kczws9911-06-24 16:32:32 Test Item Value Reference Range Interpretation Comments Calcium Lvl (test 9.3 mg/dL 8.4-10.2 Testing Pe rformed at code = 59904-4) [facility], [address], [address], [place], [place] [address] [facility] CenterCal[facility] [id number] 16:32:32 Test Item Value Reference Range Interpretation Comments Calcium Lvl (test 9.3 mg/dL 8.4-10.2 Testing Pe rformed at code = 15718-1) [facility] Lab Ambu latory Care Bldg, [address], [address], [place], [place] [address] [facility] CenterAlkaline Zehixfdtpwf3931-81-87 16:32:31 Test Item Value Reference Range Interpretation Comments Alk Phos (test code = 91 U/L 40-129 Testin g Performed at [facility] 6768-6) Lab Vendor Relationship Manager [facility], [address], [place] [address] [facility] CenterAlkaline Pfyirxcknrp7862-50-47 16:32:31 Test Item Value Reference Range Interpretation Comments Alk Phos (test code = 91 U/L 40-129 Testin g Performed at [facility] 6768-6) Lab Vendor Relationship Manager Bldg, [address], [place] [address] [facility] CenterAlbumin [id number] 16:32:30 Test Item Value Reference Range Interpretation Comments Albumin Lvl (test code 3.8 See_Comment Testi ng Performed at ACB = 1751-7) Lab Vendor Relationship Manager [facility], [address], [place] [address] [Automated mess age] The system which ge nerated this result tra nsmitted reference range : 3.5 - 5.2 gm/dL. The refe rence range was not used to interpret this result as normal/abnormal . [facility] CenterAlbumin [id number] 16:32:30 Test Item Value Reference Range Interpretation Comments Albumin Lvl (test code 3.8 See_Comment Testi ng Performed at B = 1751-7) Lab Vendor Relationship Manager [facility], [address], [address], [place] [address] [Automated mess age] The system which ge nerated this result tra nsmitted reference range : 3.5 - 5.2 gm/dL. The refe rence range was not used to interpret this result as normal/abnormal . [facility] CenterAspartate Aminotransferase 2022-06-07 16:32:29 Test Item Value Reference Range Interpretation Comments AST (test code = 14 U/L See_Comment Testing Per formed at B 1920-8) Lab Vendor Relationship Manager [facility], [address], [address], [place] [address] [Automated mess age] The system which ge nerated this result transmit lakhwinder reference range : <=40. The reference range was not used to interpr et this result as paras l/abnormal. [facility] CenterAspartate Aminotransferase 2022-06-07 16:32:29 Test Item Value Reference Range Interpretation Comments AST (test code = 14 U/L <=40 Testing Per formed at [facility] 1920-8) Lab Vendor Relationship Manager [facility], [address], [place] [address] [facility] CenterALT2022-12-09 16:32:28 Test Item Value Reference Range Interpretation Comments ALT (test code = 6 U/L See_Comment Testing Per formed at [facility] 1742-6) Lab Vendor Relationship Manager [facility], [address], [place] [address] [Automated mess age] The system which ge nerated this result transmit lakhwinder reference range : <=41. The reference range was not used to interpr et this result as paras l/abnormal. [facility] CenterALT2022-12-09 16:32:28 Test Item Value Reference Range Interpretation Comments ALT (test code = 6 U/L <=41 Testing Per formed at [facility] 1742-6) Lab Vendor Relationship Manager [facility], [address], [place] [address] [facility] CenterElectrolyte Bxhrb4603-05-03 16:32:27 Test Item Value Reference Range Interpretation Comments Sodium Lvl (test code = 138 See_Comment Test ing Performed at [facility] 2951-2) Lab Vendor Relationship Manager [facility], [address], [place] [address] [Automated mess age] The system which ge nerated this result tra nsmitted reference range : 136 - 145 mEq/L. The reference range was not u sed to interpret this result as normal/abnormal . Potassium Lvl (test 3.8 See_Comment Testing Performed at [facility] code = 2823-3) Lab Ambulator y Care [facility], [address], [place] [address] [Automated mess age] The system which ge nerated this result tra nsmitted reference range : 3.5 - 5.1 mEq/L. The reference range was not u sed to interpret this result as normal/abnormal . Chloride (test code = 103 See_Comment Testin g Performed at [facility] ) Lab Vendor Relationship Manager Bldg, [address], [place] [address] [Automated mess age] The system which ge nerated this result tra nsmitted reference range : 98 - 107 mEq/L. The refe rence range was not u sed to interpret this result as normal/abnormal . CO2 (test code = 25 See_Comment Testing Per formed at [facility] 2028-02) Lab Vendor Relationship Manager Bldg, [address], [place] [address] [Automated mess age] The system which ge nerated this result tra nsmitted reference range : 22 - 29 mEq/L. The refe rence range was not u sed to interpret this result as normal/abnormal . Anion Gap (test code = 10 See_Comment Testi ng Performed at [facility] 98268-4) Lab [facility], [address], [place] [address] [Automated mess age] The system which ge nerated this result tra nsmitted reference range : 4 - 14 mEq/L. The refe rence range was not u sed to interpret this result as normal/abnormal . [facility] IrvineElectrolyte [id number] 16:32:27 Test Item Value Reference Range Interpretation Comments Sodium Lvl (test code = 138 See_Comment Test ing Performed at [facility] 2951-2) Lab Vendor Relationship Manager Bldg, [address], [address], [place] [address] [Automated mess age] The system which ge nerated this result tra nsmitted reference range : 136 - 145 mEq/L. The reference range was not u sed to interpret this result as normal/abnormal . Potassium Lvl (test 3.8 See_Comment Testing Performed at [facility] code = 2823-3) Lab Ambulator y Care [facility], [address], [place] [address] [Automated mess age] The system which ge nerated this result tra nsmitted reference range : 3.5 - 5.1 mEq/L. The reference range was not u sed to interpret this result as normal/abnormal . Chloride (test code = 103 See_Comment Testin g Performed at [facility] 2075-0) Lab Vendor Relationship Manager [facility], [address], [place] [address] [Automated mess age] The system which ge nerated this result tra nsmitted reference range : 98 - 107 mEq/L. The refe rence range was not u sed to interpret this result as normal/abnormal . CO2 (test code = 25 See_Comment Testing Per formed at [facility] 2028-02) Lab Vendor Relationship Manager Bldg, [address], [address], [place] [address] [Automated mess age] The system which ge nerated this result tra nsmitted reference range : 22 - 29 mEq/L. The refe rence range was not u sed to interpret this result as normal/abnormal . Anion Gap (test code = 10 See_Comment Testi ng Performed at [facility] 31018-5) Lab [facility], [facility], [place] [address] [Automated mess age] The system which ge nerated this result tra nsmitted reference range : 4 - 14 mEq/L. The refe rence range was not u sed to interpret this result as normal/abnormal . [facility].Serum Lxknckoabh7535-37-76 16:32:26 Test Item Value Reference Range Interpretation Comments Creatinine (test code = 0.66 mg/dL 0.67-1.17 L Test ing Performed 2160-0) at [facility], [facility]0 [facility], [address], [place], [place] [address] Lab Interpretation (test Abnormal code = 61244-4) [facility].Serum Zeeaxuthws9142-57-78 16:32:26 Test Item Value Reference Range Interpretation Comments Creatinine (test code = 0.66 mg/dL 0.67-1.17 L Test ing Performed 2160-0) at [facility], [facility], [address], [place], [place] [address] Lab Interpretation (test Abnormal code = 48953-7) [facility] CenterBUN2022-12-09 16:32:25 Test Item Value Reference Range Interpretation Comments BUN (test code = 3094-0) 5 mg/dL 6-23 L Betty ting Performed at [facility] Lab Ambulat ory Care [facility], [address] [place] [address] Blvd, [address], [place] [address] Lab Interpretation (test Abnormal code = 53045-0) [facility] CenterBUN2022-12-09 16:32:25 Test Item Value Reference Range Interpretation Comments BUN (test code = 3094-0) 5 mg/dL 6-23 L Betty ting Performed at [facility] Lab Ambulat [facility], [address], [place] [address] Lab Interpretation (test Abnormal code = 00543-6) [facility] CenterGlucose [id number] 16:32:24 Test Item Value Reference Range Interpretation Comments Glucose Level (test 96 mg/dL 70-99 Effectiv e 01/24/16, the code = 2345-7) glucose refer ence intervals have been updated based o n [place] [employer] octaviano delines (Standards of edical Care in Diabete s 2016. Diabetes Care 2 016; 39: S13-S22).Fastin g blood glucose:Normal: 70-99 mg/dLImpaired f asting glucose (increa sed risk for diabetes or pre-diabetes): 100-125 mg/dLDiabetes m ellitus: >/=126 mg/dL Ra ndom blood glucose:N ormal: 70-199 mg/dLNot e: Random glucose >100 mg /dL is associated with increased risk for diabetes Testin g Performed at [facility] Lab Vendor Relationship Manager [facility], [address], [place] [address] [facility] CenterGlucose [id number] 16:32:24 Test Item Value Reference Range Interpretation Comments Glucose Level (test 96 mg/dL 70-99 Effectiv e 01/24/16, the code = 2345-7) glucose refer ence intervals have been updated based o n [employer] octaviano delines (Standards of edical Care in Diabete s 2016. Diabetes Care 2 016; 39: S13-S22).Fastin g blood glucose:Normal: 70-99 mg/dLImpaired f asting glucose (increa sed risk for diabetes or pre-diabetes): 100-125 mg/dLDiabetes m ellitus: >/=126 mg/dL Ra ndom blood glucose:N ormal: 70-199 mg/dLNot e: Random glucose >100 mg /dL is associated with increased risk for diabetes Testin g Performed at [facility] Vendor Relationship Manager [facility], [address], [place] [address] [facility] CenterDifferential2022-12-09 16:09:54 Test Item Value Reference Range Interpretation Comments Neutrophil % (test code 53.5 % 42.0-66.0 As p art of = 770-8) Differential performed at [facility] Vendor Relationship Manager [facility], [address], [place] [address] Lymphocyte % (test code 38.2 % 24.0-44.0 = 736-9) Monocyte % (test code = 7.0 % 2.0-7.0 5905-5) Eosinophil % (test code 0.7 % 1.0-4.0 L = 713-8) Basophil % (test code = 0.3 % 0.0-1.0 706-2) IGRE % (test code = 0.3 % 0.0-0.4 IGRE % c ount includes 28499-8) Metamyelocytes, Myelocytes, and Promyelocytes. As part of Differe ntial performed at [facility] Care [facility], [address], [place] [address] Neutrophil Abs (test 3.56 K/uL 1.70-7.30 code = 751-8) Lymphocyte Abs (test 2.55 K/uL 1.00-4.80 code = 731-0) Monocyte Abs (test code 0.47 K/uL 0.08-0.70 = 742-7) Eosinophil Abs (test 0.05 K/uL 0.04-0.40 code = 711-2) Basophil Abs (test code 0.02 K/uL 0.00-0.10 = 704-7) IG Abs (test code = 0.02 K/uL 0.00-0.04 29366-3) Lab Interpretation Abnormal (test code = 55029-4) [facility] CenterDifferential2022-12-09 16:09:54 Test Item Value Reference Range Interpretation Comments Neutrophil % (test code 53.5 % 42.0-66.0 As p art of = 770-8) Differential performed at [facility] Lab Vendor Relationship Manager [facility], [address], [place] [address] Lymphocyte % (test code 38.2 % 24.0-44.0 = 736-9) Monocyte % (test code = 7.0 % 2.0-7.0 5905-5) Eosinophil % (test code 0.7 % 1.0-4.0 L = 713-8) Basophil % (test code = 0.3 % 0.0-1.0 706-2) IGRE % (test code = 0.3 % 0.0-0.4 IGRE % c ount includes 07217-0) Metamyelocytes, Myelocytes, and Promyelocytes. As part of Differe ntial performed at [facility] Lab Vendor Relationship Manager [facility], [address], [place] [address] Neutrophil Abs (test 3.56 K/uL 1.70-7.30 code = 751-8) Lymphocyte Abs (test 2.55 K/uL 1.00-4.80 code = 731-0) Monocyte Abs (test code 0.47 K/uL 0.08-0.70 = 742-7) Eosinophil Abs (test 0.05 K/uL 0.04-0.40 code = 711-2) Basophil Abs (test code 0.02 K/uL 0.00-0.10 = 704-7) IG Abs (test code = 0.02 K/uL 0.00-0.04 93934-6) Lab Interpretation Abnormal (test code = 86091-5) [facility] [place].[id number] 16:09:39 Test Item Value Reference Range Interpretation Comments WBC (test code = 6.7 K/uL 4.0-11.0 6690-2) RBC (test code = 789-8) 3.87 See_Comment L [Au tomated message] The system [employer] generated this result transmitted ref erence range: 4.50 - 6 .00 M/uL. The refer ence range was not u sed to interpret this result as normal/abnor mal. Hgb (test code = 718-7) 11.3 See_Comment L As p art of CBC or as an individual orderable testi ng performed at [facility], [address], [place] [address] [Automate d message] The sy stem which generated this result transmit lakhwinder reference range : 14.0 - 18.0 gm/dL. T he reference range was not used to int erpret this result as normal/abnormal . Hct (test code = 35.1 % 40.0-54.0 L As part of CBC or as 4544-3) an individual orderable testi ng performed at [facility], [address], [place] [address] MCV (test code = 787-2) 91 fL 82-98 MCH (test code = 785-6) 29.2 pg 27.0-31.0 MCHC (test code = 32.2 See_Comment [Automate d message] 786-4) The system [employer] h generated this result transmitted ref erence range: 31.0 - 3 6.0 gm/dL. The refe rence range was not u sed to interpret this result as normal/abnor mal. RDW-SD (test code = 52.4 fL 35.1-46.3 H 81421-5) RDW-CV (test code = 15.8 % 12.0-15.5 H 788-0) Platelet count (test 304 K/uL 140-440 As part of CBC or as code = 777-3) an individual orderable testi ng performed at [facility], [address], [place] [address] MPV (test code = 9.7 fL 4.0-10.4 99200-0) INRBC (test code = 0.0 % See_Comment The INRBC (instrument 10936-1) NRBC) value ref lects the enumeration of nucleated red b lood cells contained in a 200uL sampleof whole blood analyzed by the instrument. Thi s value maydiffer from the NRBC value repo rted in a manual differential,wh ich is based on a 100 cell differential. A s part of CBC testing performed at [facility] Care [address], [place] [address] [Automated mess age] The system [employer] generated this result transmitted ref erence range: <=0.0. T he reference range was not used to int erpret this result as normal/abnormal . Lab Interpretation Abnormal (test code = 19084-5) [facility] [place].[id number] 16:09:39 Test Item Value Reference Range Interpretation Comments WBC (test code = 6.7 K/uL 4.0-11.0 6690-2) RBC (test code = 789-8) 3.87 See_Comment L [Au tomated message] The system [employer] generated this result transmitted ref erence range: 4.50 - 6 .00 M/uL. The refer ence range was not u sed to interpret this result as normal/abnor mal. Hgb (test code = 718-7) 11.3 See_Comment L As p art of CBC or as an individual orderable testi ng performed at [facility] Vendor Relationship Manager Bldg, [address], [place] [address] [Automate d message] The sy stem which generated this result transmit lakhwinder reference range : 14.0 - 18.0 gm/dL. T he reference range was not used to int erpret this result as normal/abnormal . Hct (test code = 35.1 % 40.0-54.0 L As part of CBC or as 4544-3) an individual orderable testi ng performed at [facility], [address], [place] [address] MCV (test code = 787-2) 91 fL 82-98 MCH (test code = 785-6) 29.2 pg 27.0-31.0 MCHC (test code = 32.2 See_Comment [Automate d message] 786-4) The system [employer] generated this result transmitted ref erence range: 31.0 - 3 6.0 gm/dL. The refe rence range was not u sed to interpret this result as normal/abnor mal. RDW-SD (test code = 52.4 fL 35.1-46.3 H 25957-3) RDW-CV (test code = 15.8 % 12.0-15.5 H 788-0) Platelet count (test 304 K/uL 140-440 As part of CBC or as code = 777-3) an individual orderable testi ng performed at [facility] Lab Vendor Relationship Manager [facility], [address], [place] [address] MPV (test code = 9.7 fL 4.0-10.4 30936-4) INRBC (test code = 0.0 % <=0.0 The INRBC (instrument 54450-8) NRBC) value ref lects the enumeration of nucleated red b lood cells contained in a 200uL sampleof whole blood analyzed by the instrument. Thi s value maydiffer from the NRBC value repo rted in a manual differential,wh ich is based on a 100 cell differential. A s part of CBC testing performed at [facility] Lab Vendor Relationship Manager [id number], [place] [address] Lab Interpretation Abnormal (test code = 62583-4) [facility] Blood Mgtevhg2732-18-13 23:29:29 Test Item Value Reference Range Interpretation Comments Final Report (test No Fungi isolated. code = 8488) Path Review - Culture yield may be Fungus (test code = affected by sample 8479) quality, prior treatment, and transportation conditions.The results have been reviewed and electronically signed by Pathologist:SRUTHI ZABALA MD #[id number] [facility] CenterFungal Blood [id number] 23:29:29 Test Item Value Reference Range Interpretation Comments Final Report (test No Fungi isolated. code = 8488) Path Review - Culture yield may be Fungus (test code = affected by sample 8479) quality, prior treatment, and transportation conditions.The results have been reviewed and electronically signed by Pathologist:SRUTHI ZABALA MD #[id number] [facility] Blood Evfskxw4593-12-49 23:29:29 Test Item Value Reference Range Interpretation Comments Final Report (test No Fungi isolated. code = 8488) Path Review - Culture yield may be Fungus (test code = affected by sample 8479) quality, prior treatment, and transportation conditions.The results have been reviewed and electronically signed by Pathologist:SRUTHI ZABALA MD #[id number] [facility] CenterFungpr Blood Hkternq8020-85-65 23:29:29 Test Item Value Reference Range Interpretation Comments Final Report (test No Fungi isolated. code = 8488) Path Review - Culture yield may be Fungus (test code = affected by sample 8479) quality, prior treatment, and transportation conditions.The results have been reviewed and electronically signed by Pathologist:SRUTHI ZABALA MD #[id number] [facility] Blood Thaglxn2756-78-92 23:29:29 Test Item Value Reference Range Interpretation Comments Final Report (test No Fungi isolated. code = 8488) Path Review - Culture yield may be Fungus (test code = affected by sample 8479) quality, prior treatment, and transportation conditions.The results have been reviewed and electronically signed by Pathologist:SRUTHI ZABALA MD #[id number] [facility] Blood Pfiyrri8517-59-54 23:29:29 Test Item Value Reference Range Interpretation Comments Final Report (test No Fungi isolated. code = 8488) Path Review - Culture yield may be Fungus (test code = affected by sample 8479) quality, prior treatment, and transportation conditions.The results have been reviewed and electronically signed by Pathologist:SRUTHI ZABALA MD #[id number] [facility] Blood Jtzlbur7958-44-32 23:29:29 Test Item Value Reference Range Interpretation Comments Final Report (test No Fungi isolated. code = 8488) Path Review - Culture yield may be Fungus (test code = affected by sample 8479) quality, prior treatment, and transportation conditions.The results have been reviewed and electronically signed by Pathologist:SRUTHI ZABALA MD #[id number] [facility] Elpvlwv5960-21-36 01:20:36 Test Item Value Reference Range Interpretation Comments Final Report (test No growth code = 8488) Path Review - Culture yield may be Bottle/Isolator affected by sample (test code = 8499) quality, prior treatment, and transportation conditions....The results have been reviewed and electronically signed by Pathologist:Fredy Mercado MD, PhD #[id number] [facility]2022-04-30 01:20:36 Test Item Value Reference Range Interpretation Comments Final Report (test No growth code = 8488) Path Review - Culture yield may be Bottle/Isolator affected by sample (test code = 8499) quality, prior treatment, and transportation conditions....The results have been reviewed and electronically signed by Pathologist:Fredy Mercado MD, PhD #[id number] [facility]2022-04-30 01:20:36 Test Item Value Reference Range Interpretation Comments Final Report (test No growth code = 8488) Path Review - Culture yield may be Bottle/Isolator affected by sample (test code = 8499) quality, prior treatment, and transportation conditions....The results have been reviewed and electronically signed by Pathologist:Fredy Mercado MD, PhD #[id number] [facility]2022-04-30 01:20:36 Test Item Value Reference Range Interpretation Comments Final Report (test No growth code = 8488) Path Review - Culture yield may be Bottle/Isolator affected by sample (test code = 8499) quality, prior treatment, and transportation conditions....The results have been reviewed and electronically signed by Pathologist:Fredy Mercado MD, PhD #[id number] [facility]2022-04-30 01:20:36 Test Item Value Reference Range Interpretation Comments Final Report (test No growth code = 8488) Path Review - Culture yield may be Bottle/Isolator affected by sample (test code = 8499) quality, prior treatment, and transportation conditions....The results have been reviewed and electronically signed by Pathologist:Fredy Mercado MD, PhD #[id number] [facility]2022-04-30 01:20:36 Test Item Value Reference Range Interpretation Comments Final Report (test No growth code = 8488) Path Review - Culture yield may be Bottle/Isolator affected by sample (test code = 8499) quality, prior treatment, and transportation conditions....The results have been reviewed and electronically signed by Pathologist:Fredy Mercado MD, PhD #[id number] [facility]2022-04-30 01:20:36 Test Item Value Reference Range Interpretation Comments Final Report (test No growth code = 8488) Path Review - Culture yield may be Bottle/Isolator affected by sample (test code = 8499) quality, prior treatment, and transportation conditions....The results have been reviewed and electronically signed by Pathologist:Fredy Mercado MD, PhD #[id number] [facility] SsalnlXfylgwzaweee8212-42-55 17:07:36 Test Item Value Reference Range Interpretation Comments Total Cells (test code 100 = 24060-8) Neutrophil % (test code 63.0 % 42.0-66.0 The Neutrophil count = 46650-7) includes Bands. Lymphocyte % (test code 20.0 % 24.0-44.0 L = 737-7) Monocyte % (test code = 9.0 % 2.0-7.0 H 744-3) Eosinophil % (test code 2.0 % 1.0-4.0 = 714-6) Metamyelocyte % (test 6.0 % See_Comment H The Me tamyelocyte code = 740-1) count includes Myelocytes. [Automated mess age] The system [employer] generated this result transmitted ref erence range: <=0.0. T he reference range was not used to int erpret this result as normal/abnormal . NRBC (test code = 1.0 See_Comment H [Automate d message] 90033-2) The system [employer] generated this result transmitted ref erence range: [...] PLT Morph (test code = Normal Normal 91396-3) Anisocytosis (test code Present Not Present A = 702-1) Poik (test code = Present Not Present A 779-9) Polychromasia (test Present Not Present A code = 53329-7) Ovalocyte (test code = Present Not Present A 774-0) Tear Drop (test code = Present Not Present A 7791-7) Lab Interpretation Abnormal (test code = 92335-5) [facility] TvgstrQcydsrlmizoq8897-36-42 17:07:36 Test Item Value Reference Range Interpretation Comments Total Cells (test code 100 = 25334-3) Neutrophil % (test code 63.0 % 42.0-66.0 The Neutrophil count = 87143-4) includes Bands. Lymphocyte % (test code 20.0 % 24.0-44.0 L = 737-7) Monocyte % (test code = 9.0 % 2.0-7.0 H 744-3) Eosinophil % (test code 2.0 % 1.0-4.0 = 714-6) Metamyelocyte % (test 6.0 % See_Comment H The Me tamyelocyte code = 740-1) count includes Myelocytes. [Automated mess age] The system [employer] generated this result transmitted ref erence range: <=0.0. T GreenDot Trans reference range was not used to int erpret this result as normal/abnormal . NRBC (test code = 1.0 See_Comment H [Automate d message] 76437-7) The system [employer] generated this result transmitted ref erence range: <=0.0. T GreenDot Trans reference range was not used to int [...] PLT Morph (test code = Normal Normal 93262-7) Anisocytosis (test code Present Not Present A = 702-1) Poik (test code = Present Not Present A 779-9) Polychromasia (test Present Not Present A code = 84008-4) Ovalocyte (test code = Present Not Present A 774-0) Tear Drop (test code = Present Not Present A 7791-7) Lab Interpretation Abnormal (test code = 90846-2) [facility] HxclbsXkoahabxbguo4883-93-11 17:07:36 Test Item Value Reference Range Interpretation Comments Total Cells (test code 100 = 88382-4) Neutrophil % (test code 63.0 % 42.0-66.0 The Neutrophil count = 61907-5) includes Bands. Lymphocyte % (test code 20.0 % 24.0-44.0 L = 737-7) Monocyte % (test code = 9.0 % 2.0-7.0 H 744-3) Eosinophil % (test code 2.0 % 1.0-4.0 = 714-6) Metamyelocyte % (test 6.0 % See_Comment H The Me tamyelocyte code = 740-1) count includes Myelocytes. [Automated mess age] The system [employer] generated this result transmitted ref erence range: <=0.0. T he reference range was not used to int erpret this result as normal/abnormal . NRBC (test code = 1.0 See_Comment H [Automate d message] 24325-4) The system [employer] generated this result transmitted ref erence range: [...] PLT Morph (test code = Normal Normal 32505-2) Anisocytosis (test code Present Not Present A = 702-1) Poik (test code = Present Not Present A 779-9) Polychromasia (test Present Not Present A code = 29776-6) Ovalocyte (test code = Present Not Present A 774-0) Tear Drop (test code = Present Not Present A 7791-7) Lab Interpretation Abnormal (test code = 15957-1) [facility] [place].UMP6956-13-89 17:07:32 Test Item Value Reference Range Interpretation Comments WBC (test code = 11.5 K/uL 4.0-11.0 H 6690-2) RBC (test code = 789-8) 4.25 See_Comment L [Au tomated message] The system [employer] generated this result transmitted ref erence range: 4.50 - 6 .00 M/uL. The refer ence range was not u sed to interpret this result as normal/abnor mal. Hgb (test code = 718-7) 12.1 See_Comment L [Au tomated message] The system [employer] generated this result transmitted ref erence range: [...] See_Comment [Automate d message] 786-4) The system [employer] generated this result transmitted ref erence range: 31.0 - 3 6.0 gm/dL. The refe rence range was not u sed to interpret this result as normal/abnor mal. RDW-SD (test code = 57.5 fL 35.1-46.3 H 54382-6) RDW-CV (test code = 17.4 % 12.0-15.5 H 788-0) Platelet count (test 313 K/uL 140-440 code = 777-3) MPV (test code = 8.8 fL 4.0-10.4 27959-3) INRBC (test code = 0.2 % See_Comment H The INRBC (instrument 60864-0) NRBC) value ref lects the enumeration of nucleated red b lood cells contained in a 200uL sampleof whole blood analyzed by the instrument. Thi s value maydiffer from the NRBC value reported in a m anual differential,wh ich is based on a 100 cell differential. [Automated mess age] The system [employer] generated this result transmitted ref erence range: <=0.0. T he reference range was not used to int erpret this result as normal/abnormal . Lab Interpretation Abnormal (test code = 30245-6) [facility] [place].ELA9706-96-08 17:07:32 Test Item Value Reference Range Interpretation Comments WBC (test code = 11.5 K/uL 4.0-11.0 H 6690-2) RBC (test code = 789-8) 4.25 See_Comment L [Au tomated message] The system [employer] generated this result transmitted ref erence range: 4.50 - 6 .00 M/uL. The refer ence range was not u sed to interpret this result as normal/abnor mal. Hgb (test code = 718-7) 12.1 See_Comment L [Au tomated message] The system [employer] generated this result transmitted ref erence range: [...] See_Comment [Automate d message] 786-4) The system [employer] generated this result transmitted ref erence range: 31.0 - 3 6.0 gm/dL. The refe rence range was not u sed to interpret this result as normal/abnor mal. RDW-SD (test code = 57.5 fL 35.1-46.3 H 27397-4) RDW-CV (test code = 17.4 % 12.0-15.5 H 788-0) Platelet count (test 313 K/uL 140-440 code = 777-3) MPV (test code = 8.8 fL 4.0-10.4 81393-1) INRBC (test code = 0.2 % See_Comment H The INRBC (instrument 30002-4) NRBC) value ref lects the enumeration of nucleated red b lood cells contained in a 200uL sampleof whole blood analyzed by the instrument. Thi s value maydiffer from the NRBC value reported in a m anual differential,wh ich is based on a 100 cell differential. [Automated mess age] The system [employer] generated this result transmitted ref erence range: <=0.0. T he reference range was not used to int erpret this result as normal/abnormal . Lab Interpretation Abnormal (test code = 10817-7) [facility] [place].YUP8592-21-30 17:07:32 Test Item Value Reference Range Interpretation Comments WBC (test code = 11.5 K/uL 4.0-11.0 H 6690-2) RBC (test code = 789-8) 4.25 See_Comment L [Au tomated message] The system [employer] generated this result transmitted ref erence range: 4.50 - 6 .00 M/uL. The refer ence range was not u sed to interpret this result as normal/abnor mal. Hgb (test code = 718-7) 12.1 See_Comment L [Au tomated message] The system [employer] generated this result transmitted ref erence range: [...] See_Comment [Automate d message] 786-4) The system [employer] generated this result transmitted ref erence range: 31.0 - 3 6.0 gm/dL. The refe rence range was not u sed to interpret this result as normal/abnor mal. RDW-SD (test code = 57.5 fL 35.1-46.3 H 14919-4) RDW-CV (test code = 17.4 % 12.0-15.5 H 788-0) Platelet count (test 313 K/uL 140-440 code = 777-3) MPV (test code = 8.8 fL 4.0-10.4 14556-7) INRBC (test code = 0.2 % See_Comment H The INRBC (instrument 89213-3) NRBC) value ref lects the enumeration of [...] . Lab Interpretation Abnormal (test code = 32195-4) [facility] [place] Iduxs2765-03-49 11:49:22 Test Item Value Reference Range Interpretation [...] to interpret this result as normal/abnormal . [facility] Blncm3651-42-25 11:49:22 Test Item Value Reference Range Interpretation [...] to interpret this result as normal/abnormal . [facility] CenterElectro[facility] Faxko8432-87-34 11:49:22 Test Item Value Reference Range Interpretation [...] to interpret this result as normal/abnormal . [facility] CenterFractionated Hkryvkkku3344-32-41 11:49:21 Test Item Value Reference Range Interpretation [...] interpret th is result as normal/abnormal . [facility] CenterFractionated Uxzxausgc5207-14-42 11:49:21 Test Item Value Reference Range Interpretation Comments Bili Total (test <0.3 See_Comment Direct and indirect code = 1974-2) bilirubin vibha l not be reported when [...] interpret th is result as normal/abnormal . [facility] CenterFractionated Hlhelpqev7551-52-11 11:49:21 Test Item Value Reference Range Interpretation [...] interpret th is result as normal/abnormal . [facility] CenterGlomerular Filtration Rate 2021-10-24 11:49:20 Test Item Value Reference Range Interpretation Comments eGFR-AA (test code 107 See_Comment Normal eG FR: >= 60 = 19610-5) mL/min/1.73 m2N ote: The eGFR is calculated [...] Kidney failure <15 [Au tomated message] The [employer]5media stem which generated this result transmitted ref erence range: >=60 mL/min/1.7 3 sq. m. The reference range was not used to interpret th is result as normal/abnormal . eGFR-JCARLOS (test code 93 See_Comment Normal e GFR: >= 60 = 76129-1) mL/min/1.73 m2N ote: The eGFR is calculated [...] interpret th is result as normal/abnormal . [facility] CenterGlomer[facility] Fil[facility] Rate 2021-10-24 11:49:20 Test Item Value Reference Range Interpretation Comments eGFR-AA (test code 107 See_Comment Normal eG FR: >= 60 = 55950-6) mL/min/1.73 m2N ote: The eGFR is calculated [...] See_Comment Normal e GFR: >= 60 = 58217-3) mL/min/1.73 m2N ote: The eGFR is calculated [...] Kidney failure <15 [Au tomated message] The [employer]media stem which generated this result transmitted ref erence range: >=60 mL/min/1.7 3 sq. m. The reference range was not used to interpret th is result as normal/abnormal . [facility] [place] [facility] Rate 2021-10-24 11:49:20 Test Item Value Reference Range Interpretation Comments eGFR-AA (test code 107 See_Comment Normal eG FR: >= 60 = 37928-9) mL/min/1.73 m2N ote: [...] See_Comment Normal e GFR: >= 60 = 63155-3) mL/min/1.73 m2N ote: The eGFR is calculated [...] interpret th is result as normal/abnormal . [facility] Lgpafpm2669-27-18 11:49:19 Test Item Value Reference Range Interpretation Comments Total Protein (test code = 2885-2) 6.3 g/dL 6.4-8.3 L Lab Interpretation (test code = Abnormal 24712-1) [facility] Fpirzfv8469-50-35 11:49:19 Test Item Value Reference Range Interpretation Comments Total Protein (test code = 2885-2) 6.3 g/dL 6.4-8.3 L Lab Interpretation (test code = Abnormal 66170-9) [facility] Ghglraa4501-52-76 11:49:19 Test Item Value Reference Range Interpretation Comments Total Protein (test code = 2885-2) 6.3 g/dL 6.4-8.3 L Lab Interpretation (test code = Abnormal 94577-9) [facility] CenterMagnesium Ejkag1283-22-67 11:49:18 Test Item Value Reference Range Interpretation Comments Magnesium (test code = 61170-3) 2.1 mg/dL 1.6-2.6 [facility] CenterMagnesium Ptqqg8851-88-76 11:49:18 Test Item Value Reference Range Interpretation Comments Magnesium (test code = 50851-7) 2.1 mg/dL 1.6-2.6 [facility] CenterMagnesium Xnwwg4387-03-33 11:49:18 Test Item Value Reference Range Interpretation Comments Magnesium (test code = 98257-2) 2.1 mg/dL 1.6-2.6 [facility] CenterAlkaline Bqcaveuetul8669-01-09 11:49:17 Test Item Value Reference Range Interpretation Comments Alk Phos (test code = 6768-6) 59 U/L 40-129 [facility] CenterAlkaline Gukzosynefw3613-66-85 11:49:17 Test Item Value Reference Range Interpretation Comments Alk Phos (test code = 6768-6) 59 U/L 40-129 [facility] CenterAlkaline Eojptmvnksn0423-69-68 11:49:17 Test Item Value Reference Range Interpretation Comments Alk Phos (test code = 6768-6) 59 U/L 40-129 [facility] CenterALT2022-04-27 11:49:16 Test Item Value Reference Range Interpretation Comments ALT (test code = 14 U/L See_Comment [Automated message] The 1741-11) system which ge nerated this result transmit lakhwinder reference range : <=41. The reference range was not used to interpr et this result as paras l/abnormal. [facility] 11:49:16 Test Item Value Reference Range Interpretation Comments ALT (test code = 14 U/L See_Comment [Automated message] The 1741-11) system which ge nerated this result transmit lakhwinder reference range : <=41. The reference range was not used to interpr et this result as paras l/abnormal. [facility] 11:49:16 Test Item Value Reference Range Interpretation Comments ALT (test code = 14 U/L See_Comment [Automated message] The 1742-6) system which ge nerated this result transmit lakhwinder reference range : <=41. The reference range was not used to interpr et this result as paras l/abnormal. [facility].Serum Ctammlgzwd6619-46-58 11:49:15 Test Item Value Reference Range Interpretation Comments Creatinine (test code = 2160-0) 0.81 mg/dL 0.67-1.17 [facility].Serum Mlderuksua3851-57-53 11:49:15 Test Item Value Reference Range Interpretation Comments Creatinine (test code = 2160-0) 0.81 mg/dL 0.67-1.17 [facility].Serum Aendlkhszo0988-71-17 11:49:15 Test Item Value Reference Range Interpretation Comments Creatinine (test code = 2160-0) 0.81 mg/dL 0.67-1.17 [facility] CenterBUN2022-04-27 11:49:14 Test Item Value Reference Range Interpretation Comments BUN (test code = 3094-0) 15 mg/dL - [facility] CenterBUN2022-04-27 11:49:14 Test Item Value Reference Range Interpretation Comments BUN (test code = 3094-0) 15 mg/dL 12-20 [facility] CenterBUN2022-04-27 11:49:14 Test Item Value Reference Range Interpretation Comments BUN (test code = 3094-0) 15 mg/dL 12-20 [facility] CenterPhosphorus Smsde4913-32-87 11:49:13 Test Item Value Reference Range Interpretation Comments Phosphorus (test code = 2777-1) 3.4 mg/dL 2.5-4.5 [facility] CenterPhosphorus Hygvi2029-73-80 11:49:13 Test Item Value Reference Range Interpretation Comments Phosphorus (test code = 2777-1) 3.4 mg/dL 2.5-4.5 [facility] CenterPhosphorus Pclav6192-41-39 11:49:13 Test Item Value Reference Range Interpretation Comments Phosphorus (test code = 2777-1) 3.4 mg/dL 2.5-4.5 [facility] CenterPhosphorus Rfhar8906-05-08 11:49:13 Test Item Value Reference Range Interpretation Comments Phosphorus (test code = 2777-1) 3.4 mg/dL 2.5-4.5 [facility] CenterPhosphorus Fscwk0490-38-75 11:49:13 Test Item Value Reference Range Interpretation Comments Phosphorus (test code = 2777-1) 3.4 mg/dL 2.5-4.5 [facility] CenterPhosphorus Vxzqq0909-49-64 11:49:13 Test Item Value Reference Range Interpretation Comments Phosphorus (test code = 2777-1) 3.4 mg/dL 2.5-4.5 [facility] CenterPhosphorus Xgbza4409-33-18 11:49:13 Test Item Value Reference Range Interpretation Comments Phosphorus (test code = 2777-1) 3.4 mg/dL 2.5-4.5 [facility] CenterCalcium Tbnam9321-14-91 11:49:12 Test Item Value Reference Range Interpretation Comments Calcium Lvl (test code = 08996-8) 9.1 mg/dL 8.4-10.2 [facility] CenterCalcium Zzebd9835-22-71 11:49:12 Test Item Value Reference Range Interpretation Comments Calcium Lvl (test code = 74439-1) 9.1 mg/dL 8.4-10.2 [facility] CenterCalcium Upwhx8560-14-45 11:49:12 Test Item Value Reference Range Interpretation Comments Calcium Lvl (test code = 70221-7) 9.1 mg/dL 8.4-10.2 [facility] CenterAlbumin Pqqpe5454-91-11 11:49:11 Test Item Value Reference Range Interpretation Comments Albumin Lvl (test code 3.6 See_Comment [Aut omated message] The = 4133) system which ge nerated this result tra nsmitted reference range : 3.5 - 5.2 gm/dL. The refe rence range was not used to interpret this result as normal/abnormal . [facility] CenterAlbumin Eqebl6570-50-37 11:49:11 Test Item Value Reference Range Interpretation Comments Albumin Lvl (test code 3.6 See_Comment [Aut omated message] The = 3994) system which ge nerated this result tra nsmitted reference range : 3.5 - 5.2 gm/dL. The refe rence range was not used to interpret this result as normal/abnormal . [facility] CenterAlbumin Hysws5611-48-94 11:49:11 Test Item Value Reference Range Interpretation Comments Albumin Lvl (test code 3.6 See_Comment [Aut omated message] The = 0585) system which ge nerated this result tra nsmitted reference range : 3.5 - 5.2 gm/dL. The refe rence range was not used to interpret this result as normal/abnormal . [facility] CenterAspartate Aminotransferase 2021-10-24 11:49:10 Test Item Value Reference Range Interpretation Comments AST (test code = 14 U/L See_Comment [Automated message] The 1920-01) system which ge nerated this result transmit lakhwinder reference range : <=40. The reference range was not used to interpr et this result as paras l/abnormal. [facility] CenterAspartate Aminotransferase 2021-10-24 11:49:10 Test Item Value Reference Range Interpretation Comments AST (test code = 14 U/L See_Comment [Automated message] The 1920-01) system which ge nerated this result transmit lakhwinder reference range : <=40. The reference range was not used to interpr et this result as paras l/abnormal. [facility] CenterAspartate Aminotransferase 2021-10-24 11:49:10 Test Item Value Reference Range Interpretation Comments AST (test code = 14 U/L See_Comment [Automated message] The 1920-01) system which ge nerated this result transmit lakhwinder reference range : <=40. The reference range was not used to interpr et this result as paras l/abnormal. [facility] CenterGlucose Tpcaf6812-26-49 11:49:08 Test Item Value Reference Range Interpretation [...] diabetes Lab Interpretation (test Abnormal code = 43239-1) [facility] CenterGlucose Siodw3970-89-50 11:49:08 Test Item Value Reference Range Interpretation [...] diabetes Lab Interpretation (test Abnormal code = 44867-1) [facility] CenterGlucose Spkdm9489-74-60 11:49:08 Test Item Value Reference Range Interpretation [...] diabetes Lab Interpretation (test Abnormal code = 74362-9) [facility] CenterIgG Tqxwtjtyoc7592-53-34 06:55:27 Test Item Value Reference Range Interpretation Comments IgG Total-Hart (test 830 mg/dL 767-1590 code = 2465-3) IgG1-Hart (test code = 418 mg/dL 935-785 8859-1) IgG2-Hart (test code = 157 mg/dL 171-632 L 2467-9) IgG3-Hart (test code = 56.8 mg/dL 18.4-106.0 2468-7) IgG4-Hart (test code = 8.8 mg/dL 2.4-121.0 Test Performed 5) by:[facility] [employer] [address]stck[address] [employer] [address], [employer] [place], [place] [address]Cyy Director: Petar Johnson M.D. Ph. D.; CLIA# [id number] 2 Lab Interpretation Abnormal (test code = 03059-6) [facility] Omdkaacfgb0499-80-65 06:55:27 Test Item Value Reference Range Interpretation Comments IgG Total-Hart (test 830 mg/dL 767-1590 code = 2465-3) IgG1-Hart (test code = 418 mg/dL 624-479 5617-1) IgG2-Hart (test code = 157 mg/dL 171-632 L 2467-9) IgG3-Hart (test code = 56.8 mg/dL 18.4-106.0 8-7) IgG4-Hart (test code = 8.8 mg/dL 2.4-121.0 Test Performed 2468-10) by:[facility] [employer] [address], [employer] [place], [place] [address]Lnl Director: Petar Johnson M.D. Ph. D.; CLIA# [id number] 2 Lab Interpretation Abnormal (test code = 19602-5) [facility] Yofuprbasx3149-48-51 06:55:27 Test Item Value Reference Range Interpretation Comments IgG Total-Hart (test 830 mg/dL 767-1590 code = 2465-3) IgG1-Hart (test code = 418 mg/dL 026-773 0424-1) IgG2-Hart (test code = 157 mg/dL 171-632 L 2467-9) IgG3-Hart (test code = 56.8 mg/dL 18.4-106.0 2468-7) IgG4-Hart (test code = 8.8 mg/dL 2.4-121.0 Test Performed 2468-10) by:[facility] [employer] [address] [employer] [address], [place] [address]Ixl Director: Petar Johnson M.D. Ph. D.; CLIA# [id number] 2 Lab Interpretation Abnormal (test code = 88159-1) [facility] Mrjjhqjjtk2184-74-11 06:55:27 Test Item Value Reference Range Interpretation Comments IgG Total-Hart (test 830 mg/dL 767-1590 code = 2465-3) IgG1-Hart (test code = 418 mg/dL 492-626 8938-1) IgG2-Hart (test code = 157 mg/dL 171-632 L 2467-9) IgG3-Hart (test code = 56.8 mg/dL 18.4-106.0 8-7) IgG4-Hart (test code = 8.8 mg/dL 2.4-121.0 Test Performed 2468-10) by:[facility] [employer] Ucw[address] [employer] [address], [place], [place] [address]Mtx Director: Petar Johnson M.D. Ph. D.; CLIA# [id number] 2 Lab Interpretation Abnormal (test code = 57100-0) [facility] Necepshghh1191-12-91 06:55:27 Test Item Value Reference Range Interpretation Comments IgG Total-Hart (test 830 mg/dL 767-1590 code = 2465-3) IgG1-Hart (test code = 418 mg/dL 474-609 2641-1) IgG2-Hart (test code = 157 mg/dL 171-632 L 2467-9) IgG3-Hart (test code = 56.8 mg/dL 18.4-106.0 8-7) IgG4-Hart (test code = 8.8 mg/dL 2.4-121.0 Test Performed 2468-10) by:[facility] [employer] [address], [place], [place] [address]Qpq Director: Petar Johnson M.D. Ph. D.; CLIA# [id number] 2 Lab Interpretation Abnormal (test code = 98429-7) [facility] Uwwgmmafii5416-38-00 06:55:27 Test Item Value Reference Range Interpretation Comments IgG Total-Hart (test 830 mg/dL 767-1590 code = 2465-3) IgG1-Hart (test code = 418 mg/dL 734-522 4838-1) IgG2-Hart (test code = 157 mg/dL 171-632 L 2467-9) IgG3-Hart (test code = 56.8 mg/dL 18.4-106.0 2468-7) IgG4-Hart (test code = 8.8 mg/dL 2.4-121.0 Test Performed 2468-5) by:[facility] [employer] [address] [employer], [employer] [place], [place] [address]Txo Director: Petar Johnson M.D. Ph. D.; CLIA# [id number] 2 Lab Interpretation Abnormal (test code = 65534-1) [facility] Rezqldfcfn5117-44-27 06:55:27 Test Item Value Reference Range Interpretation Comments IgG Total-Hart (test 830 mg/dL 767-1590 code = 2465-3) IgG1-Hart (test code = 418 mg/dL 783-907 4332-1) IgG2-Hart (test code = 157 mg/dL 171-632 L 2467-9) IgG3-Hart (test code = 56.8 mg/dL 18.4-106.0 2468-7) IgG4-Hart (test code = 8.8 mg/dL 2.4-121.0 Test Performed 5) by:[facility] [employer] [id number] [employer], [employer] [place], [place] [address]Ovr Director: Petar Johnson M.D. Ph. D.; CLIA# [id number] 2 Lab Interpretation Abnormal (test code = 20328-2) [facility] CenterIgG20[facility]-04-[facility] 19:29:59 Test Item Value Reference Range Interpretation Comments IgG (test code = 6001) 751 mg/dL 610-1616 [facility]59 Test Item Value Reference Range Interpretation Comments IgG (test code = 6001) 751 mg/dL 610-1616 [facility]59 Test Item Value Reference Range Interpretation Comments IgG (test code = 6001) 751 mg/dL 610-1616 [facility]:29:59 Test Item Value Reference Range Interpretation Comments IgG (test code = 6001) 751 mg/dL 610-1616 [place] [id number] 19:29:59 Test Item Value Reference Range Interpretation Comments IgG (test code = 6001) 751 mg/dL 610-1616 [place] 80321022-04-25 19:29:59 Test Item Value Reference Range Interpretation Comments IgG (test code = 6001) 751 mg/dL 610-1616 [place] [id number] 19:29:59 Test Item Value Reference Range Interpretation Comments IgG (test code = 6001) 751 mg/dL 610-1616 [facility]:29[facility]58 Test Item Value Reference Range Interpretation Comments IgA (test code = 5992) 191 mg/dL 85-499 [facility]:29[facility]58 Test Item Value Reference Range Interpretation Comments IgA (test code = 5992) 191 mg/dL 85-499 [facility] 19:29:58 Test Item Value Reference Range Interpretation Comments IgA (test code = 5992) 191 mg/dL 85-499 [facility] 19:29:58 Test Item Value Reference Range Interpretation Comments IgA (test code = 5992) 191 mg/dL 85-499 [facility] 19:29:58 Test Item Value Reference Range Interpretation Comments IgA (test code = 5992) 191 mg/dL 85-499 [facility] 19:29:58 Test Item Value Reference Range Interpretation Comments IgA (test code = 5992) 191 mg/dL 85-499 [place] [id number] 19:29:58 Test Item Value Reference Range Interpretation Comments IgA (test code = 5992) 191 mg/dL 85-499 [facility] 2021-[facility]-22 15:30:07 Test Item Value Reference Range Interpretation Comments Submitted Clinical History z6emsDHiYMVbj1cyVGE (test code = 11860) mbGFuZzEwMzNcZnRuYm pcdWMxIHtccnRmMVxzc 3VrX5ImIpVaUEcknmFk XGRlZmxhbmcxMDMzXGZ 0bmJqXHVjMVxkZWZmMH wcTb8gjULgrHltUcEmQ ZZcv1raxnHXhzdwgNj0 b1kgFSGrXpC0nXZbWRf yJ5jzjdMgqXDtQZPhOG q8pW86EJWgrZ3hzESaW SjquqInRkA1KRqbHMJg WpG7ULMlzHLkQXTkJ7a yZWQwXGdyZWVuMFxibH VxFYM4cYduh9Q7yPWsx GVldHtcZjBcZnMyMiBO l7GaDRs0qVvjW8PfVNM oOiA4cZRmOLNiHBtwOV RwGMIuvaY8jU02FKdee cJ3hEVps4Vnh61kl141 aC4gqFNvLPZ8FXInREM cyJHuWALvPEG4WNOxgU NxN9ybNWGwOS3pmcmuJ GpnMYtxWMWlmAE2QKZm tHDyI5OmODYgDUxxQYX ajwf7JsBfZl0diIOzpW dbHUcnp6efw4kisHKlR if2YBXsIxOeToorGMow r8Bpz5zqMDNfvd7pNVK 8xCCmeDgik6N5vYSaGB ApvZQpyqJiCVMdZjU9F IlgWL9rfo47YAQjSWU6 mh6ubFIuyOslpgDbtFB aYQxoC4OiDXSme148OJ XlG6XeTIYfb8X2whPsI dZjZKWavJK7zfC2LLFb NSu8vXLoxxC5qvZhlUC cT8hmzM6zZKKgEC7hhs ahm7biVMajHIgqKMNiq YJ8qrK3HDIfrZLdT2Wc oL1cRUHqIRxbVXZqzih 6MlQqBr2hmDMbnLgdAG xzYmtwYWdlXHBnbmNvb nRccGduZGVjXHBsYWlu XHBsYWluXGYwXGZzMjR laAiorCshrS5oMuPmVs YdDKfrMD6wHBSmM8bfo RZwUMNbDYMvU4pmEhWo qV2uaQtkZYoiqsTaXBX 0HQyvm8xovibfpGUhpd L4sJXnGiWwRdE2JZbjj GFpblxmMVxmczIyXGxh iapbTNAgHXviV9doXwE aJENhfPliWJeob8HbOJ YxXGZzMjJccGFyfX0= Diagnosis (test code = 34) j2bwiOMnRLNdlQD2ImX wACJxh5rxm5YkkYXnjQ RfFYhjhCOifdYapx30g LO2qG31MN5zUCRiLiF0 QXLehwQ9Uyo5CJCsPPQ dsBZdU259g1xpm4sykx QatBP2kElrUGIlfhuqG sA7DZafQXHvoijoYUn6 NRppSLCajBK0AQGkiGM mG5JqQMCuTC8latv9SJ J0BEheAMWzMuL4FLXun GAeKXSqlDfuRWxpx271 TKT7SqKnHDRtatWthCt zeJ9rDxCcHUSJUoYkOW ZafNzcD8WxWKQesL7fm 7z1FLayzdXaFVa0QZFl D7jbhzrdnxHti9RuxJ0 yc0leK9YgmWpfL24xb7 jolWLciTK9yDXwEQIfl aWzSFKgIEKzaGmzW5i9 aXNccGFyfQ== Gross Description (test y1wlaLDxDRDmcDBWKSk code = 4590000003) wMVxhbnNpXHNwbHRwZ3 AcblzrYVgcIA7dSI1ph ToqhBMcmHHpGJ0HXSXr ZmYxXHBhcGVydzEyMjQ vMZLtiIGlkBV3BWSrUK 1hcmdsMTgwMFxtYXJnc mP2OAVpnGZyY6CxCPAa BU9hywtjDOJ0QCioeD5 ugcHVHqzmLy2vuNAdzT tcZjFcZmNoYXJzZXQwX IZbvEamUUSrOWz9mP0P LsjnW43rf2H1Dft3TJT pZSEkN9DyVQ2hBYRxcU ChW92XCoujQPB8GMYQI eprCAMvHA0Rm1wvIMMi bDEdXOD4RJgvgIFoGPJ fNMQqNXw3LMHbRDezvY ElWP0xsWzbZuygsUaob 2VjdCBcXGlkIDUxMDAy XUawTIHmHX0BHiFcASA 3NCShSWJxXUs3QKx2LL 2NMrEiLLWxPXV5CPN0Q MNnTYo1STgwUE3DVEOo YrAyEOX7NJZwVADjGVZ oTQo6JLAsKZddFUBgdY FsIFxcZnMgMTAgXFxmY qCyEBNcMYrukjT5DGBn YWluXGJcZnMyMCBBOlx tIITaSEjmrRbahP3aOE JyN78nr3POu8CaAV6OA Oe7kmIbdpmnxY2xDAOz sjMwLNmjiSRwM2vvSry bUoZoYqTjRGKBo28eaC UfeKFjZHQrw9UvQBp7o kSaZ91cN9CgLKgzJRWh ucSqMRGljEpxX0j8hIH 0LFRfMMXrRVDzR39rUE Mlah6has46hvMgxrSjb NKpeRIlCtHkz9X4MFKt g3F2ZKSsHNEsyAQcguc yUQ11TJViXDEyLS2pvM VkIHdpdGggcHJvYmFib GKhvEittqWglWH1LWIx PUcvWBHnyRgmIIb0VUY 3Iq6haLWlKBXlcaXPRB 7cPHqyhq86CYQ9p2oqu WVsZHtcKlxmbGRpbnN0 IEhZUEVSTElOSyBuYW1 lPUxJTktCRUdJTnwyMT SbBsmtsFTDKTP3KIpud HklsXs9d8xibDVds4p8 IXvuSGQ3wEwHm3tqvDR oMZihLmcydPNsduZ8FF nRGGBVQDlRRoReHJ0wY KcBWeiMCnM9FcRrMJD5 SZlLS2IEtSG2Kde1UJz 8fXtcZmxkcnNsdCBcJz CLwW1poZwmbW8eaFOqI 2hcZnMyMCANClxlcGlj XxImoAQtLhMnjwQ7HKW lhEHdWNO9KI6mFABnjc mbNNCoVBUqTJA9FEpxn F79hFMvECZkWAEjuONi fVxwbGFpbiANClxzbC0 mTfZoi3lvlRm6SRRSJf xpqIMczrcvbhH1QGKbe 5xovLzoi1VxfWLkRE1e lObkcU5hToGqIbZXVo9 = Disclaimer (test code = o5tmxOBhXCZlgYIrUbE 9844) tUFTjOFLcu4ssZWJutQ FuZzEwMzNcZnRuYmpcd BIlBWWvWxNgq1cun370 oPCmg8zqWQQqNfW9yGV tYAAbfEEsV413SQDkFB xni2yee7LeLJXywCQyi 6S4IVBWrqttqJa5vPuy D13oq1G9CsghU8voWLF iZOVsK6BtIM4iOUTdJy n4IDX8MIE3KAKtWQSeL 1QvXU2mLTLmjEHlHCc8 q2evdPvgLVKcIVL2g1h nVSfjkxNcEO5ikx3olF g7g1vdxhQyARAjRAQsq KRHKHUhB7DnbQjrGv5i dVi9aGyhHjcxWPD9Vjx 8KA1cxz07oth2pQtsLL UxyljeIvZ6LOlkBXRus zeyOPr2MOgdELYxsWU0 JUNztNWyF0RlZLGtZV3 bfpp2IAW6KSlmVEBiIk F5ESUfyHJhSIJztAbuG Euej382WMR3HwPjFX9x N9Tgi7W4dQ6fwKXpOTC vdKCxXmPtRDFnmu1clW OtRWync0GuDVE6pxL5o WVzvQAtVFNrHM24Kcza v9SfDxjcKLZ6RXNahoB gj7Tle1vrLzByigCoI5 hqG6ClRPUcMSDzTFTcI mWrhrFiu9Hku2LzjFCw gRu8m3rsUMMcPPVhbNu si5yeDDL5UZAmZ3T0gI Tes6ovLEqmIBKrwDV5y jH2MEKekHGtA2MgmM8m GGYsSF3wfnv5d3apTRJ 1ROeyESAmAlW4thX7KL BcaGVhZGVyeTcyMFxmb 507WBT5OpRrUTTte7Tf A3KnlJtgH81egEmsG34 hWZNljDznkO3ycEfadA 5cZjBcZnMyNFxxbFxwb HOdsfoeMCxbdmF0UVrz jsoaMZDeVSsaG6zoBuP eEWAtsHodZEipv4KhGK JxWXHqTcixneU9ITYVw 56lCYCos3LiKXJajZ7h sBHgTRdkcoBvoCQ5OSm hdmUgYmVlbiBkZXZlbG 0aNQXyDY7gPRSriaWxe a9ugzQsRJPsZEJtZ6Xk cmlzdGljcyBkZXRlcm1 vucGyPIW6RYRUZZ5NOT ZcKQMqw09wZNBmrEyll C2huLXdozMhMMPui1Jn aE4fdMBYAQOkI3tkLT2 kBOacg1ZhaUNrmRBwaL F9RREln9RfEnHmzcJki SRnfRJmQ8CzeFdwP7yv SZGmMRTljvYgyDUkq5K qKYPooLS4mHAjWB2CZd GJz72rBLUfTRJOnyGyQ EUumWrnoXX8ayE6xF6k LiBJZiBhcHBsaWNhYmx aLUMdj039jd7flwJ2OE ClFWCedfejr7QtWVFgG DUxpB37ZREtOHZnen6s ubqwiHIvlsYeY1Xonkd 4mQ0eFTTcDDpoLROsFX ZzMjJcbGFuZzEwMzNca GljaFxmMVxkYmNoXGYx NFcoF3hiVmWqLsGnIna wYXJ9 [facility] 2021-10-22 15:30:07 Test Item Value Reference Range Interpretation Comments Submitted Clinical History a2tqaAKlQWDlp3cxYBH (test code = 63604) mbGFuZzEwMzNcZnRuYm pcdWMxIHtccnRmMVxzc 1MmE3UhElGfLCjtvpBw XGRlZmxhbmcxMDMzXGZ 0bmJqXHVjMVxkZWZmMH sqMb3dsLEphSgkMaUpA DUap9uhlhCItidqxAo7 i0wcRASdMeA7gJWnNXn xV2pcfdWgrUQvYYDbPZ x4hW02BISmzV0jnIFqE GupvdSpEiZ2DSriHIAq AxW9EMTzbMSdXRLgI9x yZWQwXGdyZWVuMFxibH UfXPL1bKiev4T0vLJyr GVldHtcZjBcZnMyMiBO t1WhJVg2aRhsW0WuLVD kLoI3tHAiJCIjMDzmYF OdICTtnaK9oM11TLsil jB4oRMnw8Hfj95zw512 sQ1tgARbAKG7KLLlJVC qvIQtTSWyMNS0NJWotC IxC0dhGTGfBU3lwhdgO FieNMwtGRMyaCL5CTRa vQAbA4EyITLaSXzjCQI gfnv5IbWzCd7mbLTecD mqGGywk9aql8vksYMfZ zi2RQCiOtDgJualYEmf j2Iyj5vrTVJwrd2iHHK 3mMLisLrbn6Q2lFPoBP ThiXLblaHsJIAwGrX5S ChiFV5cgk66RGLxFQF3 nb8eqMJwzCdtybTvxUA mIJxcF6MrJJKtw959JZ MhB7KfSJBqi6J3myQzC nBnSWYsdHD6ugS4SZHt ZUb3uGKqffJ1ndHvkCB yB7ajxS8xBDJcDZ9pdw kgw5dtWKeaMGfeEIRly MV2nyN6ROAbsVCtL3Xw yX9eUZIcSArxBRBulco 7AiXeKn5znANedSawOZ xzYmtwYWdlXHBnbmNvb nRccGduZGVjXHBsYWlu XHBsYWluXGYwXGZzMjR asAtbjMfhgK4jKnEeZk UmRJtlKA4kARChH0igs HYlXFGkHRMeD9rlYpUc qC5tfDbkJBxgryAgBCN 0WVavc8scawzyyKBhus W6sCMtTiQnBsR4FVicc GFpblxmMVxmczIyXGxh ibieEYUbXIwqP0kpFeM pLGLljVduZThft6XjDN YxXGZzMjJccGFyfX0= Diagnosis (test code = 34) z9urcHFmACRzlEA1KiX zFGCeb8jgr8LkhKDjhS GsAMqlkRHfzfVldk28k UQ3jF02NO6qSAGtXoQ2 EVElpsX1Ykq9SBIvTWW kiEMoA844p5uxy7foxd PcpSR6jUyaEYYojsihN tY6AVbuIUIweykjHEy6 KZplXOVovEB0AWLcjGT iF2ZfRFEgTO5svhy5UA I6MRvnLNOtNuI4SPZvo ANtDCEglJciCDsmk014 FCQ9ZpTnWJMcgrZziBn enN0uUaVaGTJEOkSjJB VvsQbsZ0GjUQJquZ7zt 0f0THsckhNqAFd4PZTb Y1eedhncaqDuj9AwcD4 gb9odG5WmlZbuN89gl4 zanKDwjHE8jVTcFDCvb vRdOJQzEJIwzHjcH9b2 aXNccGFyfQ== Gross Description (test q6klcPKiXRAcpTEAQWr code = 8575825565) wMVxhbnNpXHNwbHRwZ3 NundijYDdrEL8dRD0tg AysfHTuqLZsYM5LLKTa ZmYxXHBhcGVydzEyMjQ vJIYwePEisMB0ZGPlNA 1hcmdsMTgwMFxtYXJnc tB7PTLwnBQnJ7ThKIWo TG4cwrakBOS5KEthtT1 jnkLWCvksIr2fhUTsyB tcZjFcZmNoYXJzZXQwX GGkeIqfQSXiUDv9gM6X DrrcI57hr7W2Ooi3XUV zPKCcN2LrAZ2gODDedY DqM54TYfoyPHG9XGPJT yfpNDUyKP9Id3ggCTZv lUUuWOC3LAfgiBFsZEA gGQEiJDp9VCEtSSnwmF MjCF2aeHhxXxrwzHfpm 2VjdCBcXGlkIDUxMDAy UTcyRAOnRF1GOyWzTWC 2PHCuIZDoWLx8CIe0IS 6XZxZcMNVlEAU8BHM9Y XKbWTj9VTkpUG3KKQKv OfOgJES5BSCmWOZqGDK gZMo7MJAlUOrvPTFqyZ FsIFxcZnMgMTAgXFxmY gDeFZItGRtjbyY0QMVc YWluXGJcZnMyMCBBOlx qLQWcWQhyyGioqN6bIH QjB64le0ZTv7UsSJ7MF Bz9vtUazbjnxX8gIWHq mjJwDRdroVLxQ1hbFmv zUoJgIaOpGZAUv61abK TkePTxTVYqm0ZhRRo4k tWwR66eC2VlTDzjGBZo kzVyONFchCakE2v6wGY 7OYWpRBRmZUOmO86xDF Qpwp1hih33qaMmwwPyp BXcaNHmIbVuh5O3ASLv g1O7CCXnTWPwmFOmcft vRM32VQXyVQVrEN6zrT VkIHdpdGggcHJvYmFib POtaYhkaqYbpES8SRCs AKeaHLOxgNufDVi8BWK 1Gm1lkOFtJREmjpWPEY 4rGDvkiv13JWL6f4amm WVsZHtcKlxmbGRpbnN0 IEhZUEVSTElOSyBuYW1 lPUxJTktCRUdJTnwyMT KtBttyqUINTLZ5UBdha GvrdVw8m7fwoRQwl8p8 IXobWCA4uYsUv5mqfLY yZYdaVarncBAkxxX8YI fCCNVQECqSYtIkFI7zI VtWBpqWJeT5MoOuAXM3 JZjHI1AMnNO9Hom5VAh 8fXtcZmxkcnNsdCBcJz SGdK3tmPgqmD5uyYWqN 2hcZnMyMCANClxlcGlj LiAelNIsKuLkxrE7RQN deNKeCEO5CA3wRXZpzw beIHHyQJFtPNF0PDgvv A19jPRjFLDnZHWphXLg fVxwbGFpbiANClxzbC0 uUlZsv6ihdRz6QQWCOl rfkVMpvuwzajK4GCGcp 9hqsKybm3CmtWTgME5z kWummX8kHvRsFeMMAy4 = Disclaimer (test code = o5blpECvGPCcrKEbGqX 9844) kQMBrQVJsw5ovCLAglF FuZzEwMzNcZnRuYmpcd AOhUOXtZkPcc6igt591 qNFai3ooEYQiGmD9qFC nHJBvrZPkU317WYEwFW vok4quj9HbBFNwcVFfd 9Q6XDDXmvaiuFo9aVlc D40uv0M0EwytO3usBTI aABJkO3DxVJ0wQJJrDv q8OBT2AAH1ALEnOJZqO 6FcDX4rYVUnrFKjYHd9 o3mwjAunVFPyUJX7i9h nQKxjgwDfVM0idz4mdE j6s7dmclSoQCLuWHTbp RAINXRjU2QlbFsnPx3m yTl9zCuwPkaxYUR6Fyh 0MN3wvi87sjg7aDmmFX PyazhoMwK1GGpoMHGad bpdABs7KCjwHWHasRY8 IDLajUDcK4YwQPAcHD2 eceo6QAJ3UNcgAQXbWd P6ULMxkGPhBIIqmTmnK Epxz572ERG8KlBsUV2w Z7Bdp4P9zS1yrNLdHAP gxWAeKgXuLKIbvm7npX RwMVhcn0YbFVW0cdI8x QTsoCYwVUThHB95Uyrr x5SbYjccFUA6UHBzyrO hh6Awt2qkRtJhohIgT8 toX3LrDSLtNKBrTOFkG mEgsmGbn0Rgg1SduQGo cKf4b2rfTVQiMBPexUj yd0yaRWE1SZUqW0D8vR Lcq8wsIMsmUNDszGI4v rS6SGNufTAqQ0AhaH1v RHAxFA3excl7c4kiRQK 1ZQbkVVAlHmU6skD5FV BcaGVhZGVyeTcyMFxmb 969UPX1FjMrBYDdn8Np X9FthVcyG53gpPanV36 dTISixGinaQ6ebHplqO 5cZjBcZnMyNFxxbFxwb GWxnbeuPZeewyS7TLwh sgydCSHbEIboX9tzHiW qUITuwGdiKQllj6RuOO TxIATmTvlxfzD4BVBZn 62xXRIvu9TlJYOtyD7d xZCbBChrohHjyKK3LXu hdmUgYmVlbiBkZXZlbG 2dGTVdDP0bSBNadfYuz e0kgbXcPCWbLTNyU6Sy cmlzdGljcyBkZXRlcm1 eeyDaDYS6WQIWFQ1OAX GvQMQrr66dZWKqqHnzb S1lmNAcjzEiYTDxs4Wm hP1weKKQCMPpK2ftPT2 cNLacg1EndDUsrTBtcW R2HVZgm5MkXlGqytLoj BZtpWJqV7DrvNzkM5pb FZHuYUKvrfWxnDZuq6E aCLEplNS1gYTbXS7INj AOk59nUDPoEBHKhaMbI NDvlFtqhVR1zuQ7dQ8c LiBJZiBhcHBsaWNhYmx iJEAsj708fy9sxbO1ZU HoGSFpevklu4FnYUKjM RKlsT82DLQmDNJstj8s cyjcbCUntuFsH4Oujkr 4hA1yHNEqAIbmWVDgDX ZzMjJcbGFuZzEwMzNca GljaFxmMVxkYmNoXGYx GZstG9tgWtRtRpEqZku wYXJ9 [facility] 2021-10-22 15:30:07 Test Item Value Reference Range Interpretation Comments Submitted Clinical History m1yilQHvECVon2wxQRP (test code = 15783) mbGFuZzEwMzNcZnRuYm pcdWMxIHtccnRmMVxzc 9IyG6ThRgAcXYddcgZj XGRlZmxhbmcxMDMzXGZ 0bmJqXHVjMVxkZWZmMH gtFp3doWNqxAoaUuLzW LUep0ikhaXQehdhiDl8 q5giJJEjIhX9mPLbGQd dX3hoyoAotJLzCYNdNN q2mA76TFYfhC5wmVMdQ VwthqEsAkA0GFylJCPf GmJ4RMRisECjSIVpW5g yZWQwXGdyZWVuMFxibH XoYGB2fFnej6N8qPFmo GVldHtcZjBcZnMyMiBO h2DaZTi5pVraC4GiVGA ySeX8lZIcCIYvOLstYE TpYXQykxN3rI10IBzyh iC2oEEve9Qvf92xp985 aK6lmRWxCBX7CPBvQVC efVBnXFHnMPZ4LEVhrU ArR3clAPKdYI3iahbnT GywWPwuZKVguSK7QUHt aGGoB7CsOHIgBYktJWQ djwa2DeDvJh1lrOTglE qkKZadn9wev9icsBOmR iu5UQKcNkFgRbmeMHnu b3Yxl7hfCWXlop6rXHJ 9jAAhwBoha3I8xQGpQI IenOHznmCzECHvWtJ5V DphXY1eoe25NPOeNER2 ne4ypBXwnBwqdzBlgWJ yPBhpY0FeXDIpc607NM KlC5CtNRDqu7Z9unFxE tIsTKMmpHX6tvD1KXVo JYe0bTTazlD0sdEroZV zA8vneM6dYSUoGN5zit igp1yeSCfnLZsbUCDhb XB0ecS0FDFwsIMiE1Gt vD0zUMSqJZicCGSbyty 4NvLxAp8xkMWbiGjuIJ xzYmtwYWdlXHBnbmNvb nRccGduZGVjXHBsYWlu XHBsYWluXGYwXGZzMjR yeSngqSsvmN2vIwRjUj UlJMajFY0uORVoV8ddj KUfSZAzLHRoS3vrXaZu kM0oxPmbKTpcrbLhXMB 5QKjnz7dowuyoaLMlhi I4cRWuUsGeFnA3OIdrg GFpblxmMVxmczIyXGxh lldcNTFgBQgmM6otCpP tMIRerFpyPKlee8RaTH YxXGZzMjJccGFyfX0= Diagnosis (test code = 34) y3yfuFNiFYZofVT3FyH lUBAds7aya8XdmSDloF JcHIvxvLVaduOplw06r CQ9dH61BP5vKWCpOoN7 ESEsswO6Qdv4AFFiPJX oqDXbS063j9xyz6oolr CgrKS8sTosXOChkmgkK yL2ISfkSUIwflvlAZk3 XBryVUZejML3WEZebMO aV8HyOYWaEN4piyq4JC B5TNcqZEQlJjC9DBPcw TJbYOGbpCofJCsad109 JVG2YyLcNWXtyvQgoUv xnO6kDdWtWYEPCnBlAU QchIjiB7KjLDHboB4qa 9c1GZkjfsBwVJc2NAOz T8guzvrygeHrq7BmhU0 cl2nrB2KpkUvdN60ea0 onmBNvzKD1bTAuUNPee iWfZRLrCBXqcZheT0b4 aXNccGFyfQ== Gross Description (test p3dvhHYiUYKvoZITZAo code = [id number]) wMVxhbnNpXHNwbHRwZ3 XyqkokVKfhAT8nAL1lx BruuOMksESmUM3VGGKv ZmYxXHBhcGVydzEyMjQ yGWPivCExmUL0BVVnOW 1hcmdsMTgwMFxtYXJnc zT3AZUbsPJsD5DyVTRc AS9tolwwASN9ZYaxtT1 rvzVMXxfdAj9ntXNakM tcZjFcZmNoYXJzZXQwX FApxGamVPYuNDd2hO2B CgfwH15vn3R0Cxr0GNS cLEAeN4KgJP2pWNKbxU LvE19PLtdtFXN3KMXJB ixyTSGqJF6Vy6ycCBTu fQEpGPD8KPeplKYwQCA fSSXuYJj8EJPoOZvhwF KsPJ6hjQtnIvdgyPrmg 2VjdCBcXGlkIDUxMDAy TKhsXSUdEK2SJwStMHP 2PTRsZVKhNOh5HLo3YB 1KOsEzPNHeWWH8GTQ1A SJjAMw5FUklFJ0OQJMw DePdOAC4MZZkDZRzNDP nOUc3INMhTVhgDJZpqE FsIFxcZnMgMTAgXFxmY aDaQQPeMWlenfN1JDFz YWluXGJcZnMyMCBBOlx tMVRuAXlteStfzI3tRK ZpU84wa2GOv0DcSF3JP Wo6gfFocwmmiM5iVVTc taWeZLbxvKOnA8peBvz qHgLeQhCzRQVTm45thV KyuAVgTHGzs2VmLVj6j zKyN87iD3JeHQteQVTx avPyILDteNspT2u6eJR 0IMHmNVQvFXHkR78dZI Wdcp3wrk21ocBdxjFvz SHhsRBzIgLxv4K6WXXm g4N0XQInOJUyiDTroce aMS71WTDoIQKbLP2bfJ VkIHdpdGggcHJvYmFib UBrsBaozkJaxZE0OREn ZVoxRYQkkPvlLNt0AAO 4Qa2beUGpUVCqppBZVV 4hHAnlag67PTU8v4sor WVsZHtcKlxmbGRpbnN0 IEhZUEVSTElOSyBuYW1 lPUxJTktCRUdJTnwyMT WxIsyjpRCDUSB8ZFcgs QgmvOx2v9mlsCAwp3w5 TJrwOCK4cJtPc6nkaMQ fJYflPtvsmFXadcM8PS kANSMLHSlDVxCbOU9dB CsJFriEBvO8YcAkTQQ0 GEaIA9EXaSW4Tyy5KNn 8fXtcZmxkcnNsdCBcJz KGzE9suTwuwC3qoBLsO 2hcZnMyMCANClxlcGlj OnOytCLnYhBpyoJ7SJM eiOPyEZA3ES0jMBDyci mxFYWoUKHlMQF1VKuim Q09wFRdAAQuJDTldVJj fVxwbGFpbiANClxzbC0 mAyJaq6vzrPf5SMKDQc poaTXhlfafwyL1LVOug 7lvhXkhg2JpfLSkNH1c uUbvpV2bTmIcMoFJSw8 = Disclaimer (test code = m6xmdKEaCGWecLGbElG 9844) sXARrWZNbz1oyVEXtxK FuZzEwMzNcZnRuYmpcd VAlLGQmFfFbj4yii285 qDJuz2uySWLhAxV8qMT yZWOqdBQcD121DSCvMO obl5hcb5FmDBErnNDxx 8Q3PMIGswjebVd7fMdg D90zb6L3GvofL5zlDEK wJKVxM2YnXK6zNAWyBg y0XBC4XNF2USSdGVObP 5PyID6tFQOfrSYtMOr6 a5ubrMcwMFGmXRB2k7u hNJnrolMaXE2qih2jqC d2g3gvwnVpABVgCCPdk BMTWGTtV7QxaMplFr0d zZp8iYjnYahkYAN6Ogu 8VV2nat98eng0zTiqKI MqngndTzA4UBvqYRSlq zsnOVb5RQthIMWstBR4 UPAfjXZgV4XdMPYgIR8 zwsr8XSV7XIrlZRUgPt C0WPBcpVSyCFPizUndY Lqdq909QAV0OrWjZP8c T8Zal1Y2uB9luCRhSPK dgIYoDoOjQHPxyn5ygW WwOAnek3GaUMQ6oqD7r OAifJGlINIvDG42Viov u1XcMawiIIK9PGWykiA hp9Icx1exJnXrlnZqF0 zuP3IuBNTiGUFcZXFxT eHaxqGlp6Mws3XyeDAb lOg6d6boPUWhZPYbrCu re5psYSJ9XASxV9D7pE Mdp6ueCQpeFDXliUY8w lO7GZTdvEVbB8CidN1g VPGnBY4wfos0t4aaGJC 1ORcxBGXsTvJ6mrN2SL BcaGVhZGVyeTcyMFxmb 693DUA6FbSxTXFle3Aj A7BdfZmyL86geIfzI47 vUIHqvTnyxK9teAsgqC 5cZjBcZnMyNFxxbFxwb XCmvjwaSCusnxK6OTug kpfwMMJnIVrmK3bgVwT hFIQncLmeZXgxl8OnXF QaGPFaUyqdkoC0ZUCKe 34zOBUns2WuJNJumN8v jMXsGJueuyKrjAP1JZc hdmUgYmVlbiBkZXZlbG 7dBCWeFR0wWZGzadBgt q4pjrBaDFShABReY6Om cmlzdGljcyBkZXRlcm1 udrYjADB5HTNETN1BXJ MmBORbr99iKZKolZtzm D5tmOVcchKqGRDap8Sv tZ1yqPTEPGKmN8vtAT8 pUPdeg2DzyLImpWXxuR K5JYJro6WnOzMzppKmk IKxkJEiZ1IinOltZ5hy GKYaOZGryiEboEEaj4R eOOOsiCD4xNAvCR1KOb RXd09jMFYlFHGVugPfG WJwtUksuEV3tcD9tX0z LiBJZiBhcHBsaWNhYmx wYCGxf075tz4ozqF7FV XeZKGmmnhbi9DuYBMdJ CVyfX19QUGsFSZavg5q hlmmvCZgdhBwE8Casem 6wH1iJSXmGWrjQMNuAX ZzMjJcbGFuZzEwMzNca GljaFxmMVxkYmNoXGYx ODmdP9xzSaMaIrSpNcm wYXJ9 [facility] 2021-10-22 15:30:07 Test Item Value Reference Range Interpretation Comments Submitted Clinical History d0lutXGsUSSse9piLXX (test code = 85945) mbGFuZzEwMzNcZnRuYm pcdWMxIHtccnRmMVxzc 7YgV8VlDmJyBLzmzyZc XGRlZmxhbmcxMDMzXGZ 0bmJqXHVjMVxkZWZmMH poNj2qgPAcwObtOxUxN PDoz5sbdlKComddcEc3 m7zoUOYmUwP5wNRcUOm qY6pppkVkzFXeBNJnJD y0bA63TKFksW2lzFUdV NjfyjGkVpF2AIgqVJCz FhV5ULBaxSAlPBBzG2d yZWQwXGdyZWVuMFxibH WpCIM7hPodw4Z7nDMha GVldHtcZjBcZnMyMiBO q3AvKXn6zMadL7BjHBG bYwH3sVTsCFFcMIyjXR TeXOCpofZ8uY72VNkdk yY9pMKnb5Xys44xp400 tZ1ydHXxYJJ1OEUsOSK leDFoZFOpXDR9NTWsdC EqL4duKDReOB9giapkK NlkOEjmCZStgKS8LUGs oTFxL9BkSXScVCupPAB fpys9DhHtLt3ybGJxvH qiHGcsb0xdy6xrhVKmY fe8TVHhInXbIrfaVWqk j4Zez2vtOZFfmq8jUQB 9dJTriYeok0H8wOKkEL JxjHBbceCeCYNrLoW8W HkqGT6mac79DEMbOZM4 yv8ypKNpgYtaclJynUE xFWcjU3YtAWNel312RA MbD6PlFKTej0E2hdQtH tJnSGSqbFX0npI2YFTd IBx5sQZarxL7orFwvHA wV5qsvC1yXCJxLX8nqm dlw7ssTYcvJHweDSEop QC2qdJ9JHMfnSKnN4Vw uR8pATSqVYtvUBFkfnn 0FkHvGe7auVQejJjfUY xzYmtwYWdlXHBnbmNvb nRccGduZGVjXHBsYWlu XHBsYWluXGYwXGZzMjR zgXhsnYcoqQ7vAyWcTi XmKGmvQN8iSBEsZ3xgd MPdJGFsTDFnW2hhUaVm eB9dlBakPEznqqYoBCD 8WKyuk2ljetqpeUSuzb Q0eNWsKgYlTkG8XZorc GFpblxmMVxmczIyXGxh lcngJLOoTFpyJ8xtNoM tPIZmnXhyIEnvj4PuOD YxXGZzMjJccGFyfX0= Diagnosis (test code = 34) c0kjuAAzUSKmxRF0LzW aIXGkv7hbq3IygXTthM CtIWgdgWFioaHxin79s KF0eW01XP9sAKRrRlF5 LJIudzO4Acg1ZPDmPIM mrQHwB347g8huf5ekhi IehLK0pBebOPSjqiwyU rL6VDylGUPbjqqoGJj8 GOqgALQygDS9ZZFnxAN bU1VlCARsZR8tdrc0QE K9DWjnAJRiZkO1WUVmu GKmXLZkoPekIOrre993 IZJ2QeDnJREcwfFioYx hvD9iKvToPOXOLzTaRS LhaTruP8KrPSZosN4ig 3b5SFjuffHrZMo3ZGNk L1udbxpkneWxb6VyvA3 mj9snX3OlfJvkQ87kd8 iydPUbiKM8lPLvHEZhr aYoHDMcAVEyxLlrX9a1 aXNccGFyfQ== Gross Description (test d0kzkSYrGQQkqHUTEJu code = [id number]) wMVxhbnNpXHNwbHRwZ3 YxqfmzUJaeVQ4gSA4pd EplfOHlcMDjGX1KVFRe ZmYxXHBhcGVydzEyMjQ dMRSbtVAwhXS3YGBbNG 1hcmdsMTgwMFxtYXJnc rB0HDSqhDOqN6GtCOVm FY7kgtkjKKP7EYgeqH6 wdpOOCduhMz5ibKTvoJ tcZjFcZmNoYXJzZXQwX LUxyAicECMrPYn9qJ2G CpiuF16as4U5Jaj3TKS wBYFpP9NkAK9zYKUunT FsC15WSbqlYVR9CANYT hecSLWxMT0Yo7hrZHAe gAJfBZC4JDmuzWDlNKZ mAUZmMWg0GZSbMZtsiK NvCO1kzDtzGekoxAvgi 2VjdCBcXGlkIDUxMDAy QQroMJOkFJ3WMxDlDTY 8GLKtHWGyJOn7VGq0JM 0WQvCxDWGoBQL8DVW6J ILwFSb9VPppWC4KJWGu AxRhWRO7ACOsDVQwJVU pVVv6KFKlMDodDELizR FsIFxcZnMgMTAgXFxmY tVhFLXtHEgaunA6GASp YWluXGJcZnMyMCBBOlx cRGPrEMrdxWggsU3jTF TqJ42uz1OIu4RzVA3JH Ze3nhRxabqfzV7qJAIh ybAeNLctxWPuS3trUjf yCjRuAtZhDKEQz49yrT TxpBBqUKIqz8BzJDe3y tAqU82wG1AxENhbMDRa hnZfIJHfaHawR1b0yLS 3ENVuOVOvJWIdN05gFI Qdbm8cfh13ioToxwRkp RRbnDVlFjSef3D8TALp i6Z9XQFxNFPtlUFtvne nLV20XMDsUHDgUV2siJ VkIHdpdGggcHJvYmFib YXkgGzmotRkrRQ9GDIa QYskAEMdtSkeDLx4SMS 1Gj8soZXeMQEpdhNSLY 2hHTxprv88YNY1i6xkc WVsZHtcKlxmbGRpbnN0 IEhZUEVSTElOSyBuYW1 lPUxJTktCRUdJTnwyMT GbDvublJBLCQP3DAhbq NskiNt1k0wudETqi2r1 GVwgWIW8vXoVr6jbdSJ rWVhaQliqjIHddoO8TI uDCRPLDRgJMzJyJJ2sA MhVQlgMWeX1WkDbIIL3 GAsTC0VXeUR2Ioy0ZZe 8fXtcZmxkcnNsdCBcJz UMzN1coVcrgP3ndXBfD 2hcZnMyMCANClxlcGlj MeFlwPYnFhFfxzW0OEM yvWTkIFC5RA7eYKXsip sjYMApYCJsDTC0IMnks I26lDAtJBQjFKWgxOQt fVxwbGFpbiANClxzbC0 bRgJhw6ihpQl9XELDNw cndBRmnsxvqwE2WDYpt 9gwbImnh2MzyLEcCL8o rYsxzO8rPkAlKxWSMq0 = Disclaimer (test code = j2rmeVKbRZIdsAHkFhA 9844) uHTFkNTKrt7kpWTWbvN FuZzEwMzNcZnRuYmpcd QKcKHCyFuIgj1ijb295 mGVey4laDGTfGhQ2jZI gZJQxkAHpH683TPFkOK goo9ksl4FiUIHpyZRej 3Y1DISWimtxvNh1kTot I20jq7K1DpxgO5mfBAK aZFUhY6GfLP8uKGXlPk h0RBR1KKC6NJCgGGJmE 8JgTP0pIJVyjIFuQKf0 f5fllYroMRRyOWG8t7j uYLagqcVvDI8lzh9xgI d8o6jzgcJrALYvXEZog DTDYXKcF1HnkXapOe2m vXf5hDrbZhtlAKH9Etc 5EC3xvz30yzu7bXsxFM TlaeebFiK2OBqzEXKxz bdhYTo7QEanTIAgbOT2 EOWjhWIiR6EnGYJdLB7 oero9ROY4QYhlSZEaOd Z1BJJmkRWlASFdtLimU Ulqk992UKT3HqPpVD9t Q6Jgv3M5nF6kuSTtQXY uvKHdNzYcVMYsyw6wyQ MgCDkyw9LbHXS7wfF8w WApmJQkMWBhCN04Ydaf g7XtQjesEAL1RFKxccA kf3Kqe8luFtUwrkVoH1 zuF4OtCQGhQCBtBPSuT uCfweFws2Wle7KpeXCo cRk1j9hgJBXjDJMllEq tl3hsZWN1JRBdE4V0xL Tri8txECjtGKIdgWJ7v lH5QHCbtBRhN7QdpJ3k RMEcNO8mggh8f2byKRS 0XGejKXWcWeO8dzH5MR BcaGVhZGVyeTcyMFxmb 847WVC4BhXtDCCaa5Rc F6IkqFliN90yrTfnL67 iXDZqtPaysQ9xgCkvbH 5cZjBcZnMyNFxxbFxwb DTyswtpOYwotmA1VFij nrtqRGJpKDhnV9mkPsY cBTTtwUbsTGbes3KuFH LiTJUjRlinwlW2FGKJx 52uCKJix8ZzTFVetL9u sRIhQVefxxIdeRU9JBv hdmUgYmVlbiBkZXZlbG 4aLRLeNW6oSJLmreBbi m2jogUlBSCsTJNpD2Xj cmlzdGljcyBkZXRlcm1 gfrFwNQQ4FTKHPX5SET HkPOMsx98eHPWbpLdpi K9mrZBghnMrOWIii0Ur iE1ddQJKVUBmE6yxFC4 qBTsjg2VlaQQkaKAvsG K3HSCom7WbYwKoiyRmq PGyvPRpB9PelYvwP2sl CCSiOLTcfhWjyACau4E hJNIizBN2bRNcLR5NTa KXm00iCDFiYPDXuvBhD TQnjJatrDK0aaM0hE4a LiBJZiBhcHBsaWNhYmx xGNQyy643uo3ywnV9NT DaBITkxthes4VhCZQeT ZZrzF38HUYgZZSitk9g qyscsEUrwcPtF2Hklrk 3iC5pUWXoIOgsGOMiST ZzMjJcbGFuZzEwMzNca GljaFxmMVxkYmNoXGYx GAcmQ5onNtXsCnEbFhk wYXJ9 [facility] 2021-10-22 15:30:07 Test Item Value Reference Range Interpretation Comments Submitted Clinical History v4ygrSGeDYGde9hiFFO (test code = 69096) mbGFuZzEwMzNcZnRuYm pcdWMxIHtccnRmMVxzc 7NuR9SwUiFxLBzzjvVp XGRlZmxhbmcxMDMzXGZ 0bmJqXHVjMVxkZWZmMH nbRz6aaYGepYadTjReA WZyf4xgiwNNgyqjoVb9 i5mcHALpHkL7lQXrLKm eK2yqzuYhfYKlLRZsXW y9mL15IOJhjU4ksFSrA CjjvfLyPzH2LHhtRPXw ZxH3XVYzuLLkGOMcR6b yZWQwXGdyZWVuMFxibH DjSEG7qRtoi4C7jSYgq GVldHtcZjBcZnMyMiBO h3IzHAa7uWldS3LzQVW xQlP8rZIuBNLpLXseCX SaJOJksdL6aC19IMavt kP3nNLpc0Fbw08ja306 eP2wgILqIKW2RLDvRQR wcOEqPKWrCLU3FRDhfE KnN3waDBCySA5ujpmoM JcfKGroDMBygJR9UQYg zCIuG3PbADAtBYxaPKC hoit5WrNqSm4esMGomS beFCzwe9utv9nahCNrH ak4ZJJtOsMcCvuyFPjb a5Ymu0rbXZSttx1wUGT 9tNWxeGlwo8G8bOYyUW NrjKNjwoSdJIRcEmW4V WlmSF5sdd40DEOiFGJ2 vo0slBDnvApmraNnoNJ oSSfnA2HmOMLzg300HG HaY8ZfDUJnd2O3ksPaS kSvQSChfNU9cpY0DZIg NRz1sNUfybT7nuUoqMX mX4ohjC6iIDVvSC0wql nzn6goJGoaEYdvPAQeg OQ0ugS3LWJxbPVyC2Je zD1hYJBdWWmyKCPjwxl 2NaLkZe1avROhmZvcFO xzYmtwYWdlXHBnbmNvb nRccGduZGVjXHBsYWlu XHBsYWluXGYwXGZzMjR ksLcewNidzQ3tIxTuAs DePHcfSA7jWSPsD8txv XYhRYHaTKJxF5uvQcYa nA6cgWpuRVhsvhEyTUV 7NXgcz3hskhdkgMCsbe X4bTLlNcCgFxO7OWlnj GFpblxmMVxmczIyXGxh erurVGZkWSgqL1moVmT wGXOuqSpvCJqrr4AgQX YxXGZzMjJccGFyfX0= Diagnosis (test code = 34) b2rogUUbEQXzaIP5DtK xFCDge2csf0KzmKBsbY FvVEsbgZQzyuGilt19v OR5aW71VD8tEWOxOpL1 TCAxfdM7Dic2TPFsQOR zcMPlK109a1alh4ayln QacNX2cNdgJWWvjhgvS nR7TWttWCWhgfvjRJh2 ADoaJBZqjVO8HSRjsKS zI9DrHAAiVU8zusb0ZX M3DCqpUIMiCzL8RVCxj SPaMUEvoUrlSTrtp727 ZIM6WfVeBUBcywClbBp tsD4eVsTaPLODYhHvKM HttUhmZ0KvIMKjwH5kj 3n7ZUyirvOeSUk8MUIx L6ihqkzivlVfm1ShhR9 dj9ziF5FayCudA93zr4 mmuZMzfLA9qEXzHRSom eMlHTTvUJIywPxgA8m5 aXNccGFyfQ== Gross Description (test h7foyZSoUGIypEBHTKb code = [id number]) wMVxhbnNpXHNwbHRwZ3 QbixueMVofPQ0eZU2uv GhcxMAsrKBlHZ6POZGe ZmYxXHBhcGVydzEyMjQ qBFIhoJQpvFD5RFYoAV 1hcmdsMTgwMFxtYXJnc gH0MMMyfQUbW3NsJWJg TX5rsgkcYXC5XMzfqA4 zegGYExdgAb7ktLRmqH tcZjFcZmNoYXJzZXQwX WGntVjuBPQrHHd0bX8D ZeysD26lw0S2Ftk2DGX sXMNaR1BzMA0tSWTvrY VwQ70YIwmbIKN8RXXTY gfpGDYeOW5Nl1urEWQl qWYcYCF8QOnltERiIGZ wKXHiUVd2TCBfHTrkfA DkDS2nwEbwAfuwvTetx 2VjdCBcXGlkIDUxMDAy KHtdCVVrGU8VOoFxJFV 7ITSgVCRcOZu1ZFn6JG 2WMwRsHLUyTQD6CMP0W EHaSVx3RKuxQZ0DKUWk WxWuQHY3FDMpKUExUDB wMPa6KFRuTZscIGHxaT FsIFxcZnMgMTAgXFxmY aNtHKMfGGppigM4HBCl YWluXGJcZnMyMCBBOlx bPLUyADtwdWhkuN8rUN UrK50na4EYk4MkJT1UL Pd8hmJrbenynU9mRCNg szExHNncnYZwX6knSht mGjEsNvHxTJWVb97tbY MoxJIjUMJak7IoVKo7k rIlK51aO3HrSBesIAEi wlWfMYKywAusQ1n6zLL 0ADLqVZAfWYWmV60aKR Bajw2vpq69deBufjNis AMnlVGjNyVpw7C1MSYt o1P2NUEcFNYuzQXfpzl tPG43SBJfDGFlZC1wqP VkIHdpdGggcHJvYmFib JYstGyhmuNtcPB3BTKl CUmbKVHomIgqWFd1SDE 5Vp1bdZWkYOKkyhVECF 0zMQcfeu87VJB9q6lee WVsZHtcKlxmbGRpbnN0 IEhZUEVSTElOSyBuYW1 lPUxJTktCRUdJTnwyMT WfYvnqbFODNFP2VNhyg LdxyQp1k5ablSVnf0s2 YIwrXGI6jSyVu6ryrRG gUBayMduyjJPfhbZ2PV zAIXTFEZlALgTkGF7fI MvYCasOGiN8AsOhAIL1 QGpOE3MUkAD8Xkm8NNg 8fXtcZmxkcnNsdCBcJz TPyZ8qtQlvgS5ajYKyB 2hcZnMyMCANClxlcGlj McWdpSLyPgCxniZ3TIW sgFRrOJY5LT3kADSkgb zkOOMyKQPsTZR2ZOuvg H94pZAdRVYqPIMayXPo fVxwbGFpbiANClxzbC0 pPlWbk2dyhRh4RHIAWp aotTJoqnhujwV4QQLxw 0tfpIlbi8VohHLfQT4x dIhavM7uEeCzObFTXo3 = Disclaimer (test code = t4fenOWhWYGfeHJcXfC 9844) xTFCrEMHue0hrMBKppC FuZzEwMzNcZnRuYmpcd CZfUXAlVcKrl2pfo423 tAOje1eyRXBoYkA7pCR hHGUfwDQbO067JLGhVI onq9fjp5FvZMMrcFByy 5O5WMSLfdjliNa4aLjd P07du6Y2OqoxF6vuBLM eVKRjX4FyBE4pKQBtPs y1JMC6ALZ6ISCzLFIxQ 1StXM6xRWQwgNOtEXw4 m3dhrHjxCHRnCQI7u4d tXQvkqiSzLU6zsr3njK w6c8rkebCpLHDgNDAhc ZTAMLLdV3PeaEcjDz7f yTb0kJehMxzaVKA0Lui 7XN8dki56yhp3yHqoDF NyzheyUuB4OIacKPKth jbsGTi4KGfrVDKcqHW7 HYRlcWRiJ2DwLCQbLT7 vwkn8NNN6AGfmRWXvRj O6WHUuoSKmTBFofBkdE Comf734HAQ2ZyGrQY8d D4Skl9C1zQ0kfXXsHPM gbMFpRkGgBDIodr7hdF XgBGrqt8GeZIE9exV6t RAapKLzLYCoQN65Gfxw z6KeEexgRQH1AFMwgbQ kz3Lvv7tkLfYmhyNfU4 ypM8NbXIRlRWUuJKEgI tVqdzAsh2Rym2KvnODl jLy6j5ixVPQtBVQqlXp py7xcCHK1QHIdS1H4uY Wzg0uzMHzxIXYxxVJ4z mR7TPQrjMTxV1MvkB6w SJRwXL5gmec9s2odPDB 2HZjuOXZmQqL0waA4IO BcaGVhZGVyeTcyMFxmb 173UMB1VzDdIWQge4Yx D9QtiUgcI48uhUekS54 qUPKyvWlkkX3scYftkN 5cZjBcZnMyNFxxbFxwb WUzarfxQZkoeqS5WFau pvycQQCzUKrrD5uoCrD mBPSvqRbdEGncj3DwBC OkJNQyNfbadnR4FXKDm 62dJKRxx2QeLPQeqW7g yNUlLDheyzUcfTY0MCx hdmUgYmVlbiBkZXZlbG 4sBFElVU7cPLUfxeLgs b9fufWtQQBtTYRkL2Iz cmlzdGljcyBkZXRlcm1 lmxOuOOP6UUCTTV3MYM MiOCKky23gPSOqtDqna F2pmZOgqlXtUFVac5Hn lV2zkLOHDFJiN6siJV9 yBRlqp2SctLPysTYhlK V3HVVic0WxUuMaqoTld GDxfQBfI4ZcjEciZ3id WNYhGPBnifBbwJNxf6E eGEXyyZV3dCOkDP8GGa QDt95gXXNtGNRBiyIzZ EEhcYuvlBQ1jaH9fX7j LiBJZiBhcHBsaWNhYmx cRAKva783ch1adsQ8OV TeDWMrwuqff0GmNIReX XPgnP64LOTeSPIjlt0k qrngaORsofFcZ5Vkxqm 6bQ8jKYQbOGepGPDnIQ ZzMjJcbGFuZzEwMzNca GljaFxmMVxkYmNoXGYx ZVoqB8ckWpApAdYnZgh wYXJ9 [facility] 2021-10-22 15:30:07 Test Item Value Reference Range Interpretation Comments Submitted Clinical History e2bwrVVqONXyd1wxMDE (test code = 69623) mbGFuZzEwMzNcZnRuYm pcdWMxIHtccnRmMVxzc 6LrG4JhRaJzYUdjrlHg XGRlZmxhbmcxMDMzXGZ 0bmJqXHVjMVxkZWZmMH rkNm7lpMJziHzcCvHdV PEjc0eacwUJtchyhRt1 i1lcMXSuGzI3kOWjLBi nM7nmeaYfdJEtTSCeIN g5hX79DMJwkO1djSXqV OyxmvHkKtG1VKfeDDEk WhS1QZDgoLTdUIXhB4r yZWQwXGdyZWVuMFxibH KxEGO7gWqxv5J3yMZjl GVldHtcZjBcZnMyMiBO s2UuSOz4sYeoG5BbTEG tRlN6pYZaITVlGIitIZ YpYVNhasU0tI88XSplk hF2hBWws0Avq91ia317 cP7kkZMkDQP0TSYoSEJ fdNUdDLDwWCI0WODgkM JnE6pgILFfZO0xzyxmV HowDAqvONSurHL7EUFr fIHtU6WaALFfHEaeAYB cdxc5BbMgLc2vzQTnsO ezZOlym8sbh0ghuENjR lt2SEAdTkXfNdlsRFpw y5Rnh5tzVGRzhv5yLZX 3cGFtwQmmh8J1tFYrDT TfeUWtyfVvQURrJmQ2D ZszHD1oqf89STKxWYQ2 ts7xcQLwpYybcwQgqQF cGOkcH8BxUNFlz503QH MsG8AqYQEet6W8jvTjA oEgYSHkkMQ5auC9DCMu OBi5wTKeijR6svRecDR eH4vwrL7cRDUsNB0amr jmh8otPUsuLIavEAArt LM2zxL2DKVrpROlI1Oh lA0yYXCfAArgOAKynkd 1UqBjQw2hrHLbsVslQG xzYmtwYWdlXHBnbmNvb nRccGduZGVjXHBsYWlu XHBsYWluXGYwXGZzMjR ofIubhCuffX9cCfOfRf JkSYihYX7eFNOhQ4dcw FMdDCIvPMGuZ9seCrRn oS6wzTuoUTkeakViWHU 3XNspg4mkfjzykTWcxw X1cOQkJmDcPgZ5ZBcru GFpblxmMVxmczIyXGxh sacfIMWbIXrpL1blNdZ mLGHyuYadFSgfv4LgCN YxXGZzMjJccGFyfX0= Diagnosis (test code = 34) p8ngsTDiJWBhaWL8NxX xAFZxa3vzd1PauFUobU QhRNaykPVohqEjuu59b KF7iS18BK2vQORcAkE6 CYZttaA0Iow4QCUwRRH lwIRnH386g0zeb2thqp YaoFV8cNbtZMOklemzQ oC8HEojXNIwxwajVCf8 YRoxXZSizOI4WKVhwQF gW8LsAYUfJY9mohg4FW Y0KYecJFVyQcN0TAEou IIwVBEeuMsjRAcmc413 FLI2IiCiRFVqtqCvxOq rlZ2iAaRjCRMAKiXuRN TdmTidO8HbHWEufR6ck 3q6XUnpsbEsIUo8KYUl T8kujvcpsdBsy6NirF3 mh3qmS4LoxZozA43ar4 broQKvnPF4cCIwBQCak wIiCIRzCLEwhXnhM5g2 aXNccGFyfQ== Gross Description (test g9bcyXBxDZDxcKVUETz code = [id number]) wMVxhbnNpXHNwbHRwZ3 OrovkrJIiaFM7oWH7rg RoxpEXfpXQlWL3OHIZm ZmYxXHBhcGVydzEyMjQ yUQFnsYIvuSS3KAPlOE 1hcmdsMTgwMFxtYXJnc wJ1KZSisVYfT8KtVVPr PR9yfbhkKYK8ZVixoQ9 hjxWGXupdLn7aqLBruO tcZjFcZmNoYXJzZXQwX FItvCgvWUKqTBs1yM5K HecdV71cn5X1Zbl5KDC oIJHyI3JwCJ5qDVYlcY CqK04IKayfNWO4NWFJB vvuNDAkKW4Jj8bhKKSe iYBkTWJ2FJctxOIpTSP oHUOpJWp2ILEmNRywdZ ZmNA2czRcpMcarjRgte 2VjdCBcXGlkIDUxMDAy PWrvXRUvRP5KUwDaFCH 5PDWkTONlJZi5NRq7OG 1GZqSaGTZlNLZ0RKU2I BApMXe5DSvhMT0CVDQs DmJgGFA2BDDqYGVwRRQ eKEg4OQWoYQdlAOJnkX FsIFxcZnMgMTAgXFxmY gDtJORnVWvslgB0GMUp YWluXGJcZnMyMCBBOlx qVQMtKZgvjPzcjQ1iTA WrQ75tr7HHq5OcTE7KC Mz4yaMgtqgbiL0mDCLw wnPbDUhryBNdU5vzRyi wNhYoGuXpRVUUk73haD CrkJSpSECya7HbNBm2o bHdN91vF4KkHXuaGXIj mhIpRFQjrDgoB3d1zVG 8FWPuTVVkWBDiQ22rIO Mdta7zyb53jmFbdtCdr BGfrGPeYzOtb1H4MUAu f0S9ZBUsZFNceXLqnsr uMR77YJKeNSYzUS9loW VkIHdpdGggcHJvYmFib MDcpPktjuJjaXJ3ZQUg CMruKGRjuSwyGOl5GFO 8Ec9mkYTwSUTudpEXSQ 9pJFvtpk34BAX2f8tod WVsZHtcKlxmbGRpbnN0 IEhZUEVSTElOSyBuYW1 lPUxJTktCRUdJTnwyMT XlQolzsWRGCKV4CMhzi CtrfSa2p9aiaULwf6p6 WQmgYYT7iCuHe2elpQV aOPevSgdspKIbgaN2YH cZCIGKUJgNRlBjEL7hI ChFCcfYVeW5UsIuLTU0 POhIG2CAhQA8Oir0FFe 8fXtcZmxkcnNsdCBcJz HCxO8fiRgqfJ0tpFAvQ 2hcZnMyMCANClxlcGlj NyYyvNUyKvLtzhU7WMT keSWuLMR4DC7qMBAkyg miMJXrCLTjKEW7OQlpr F47aQTrGQArYWOhhLNe fVxwbGFpbiANClxzbC0 mBaZjg7dwrVr6JEJNGp orgXEguuzuynA6UONno 1xgqIywb0QniVEvHP3y qXujqW6lSgFzTiGEHf0 = Disclaimer (test code = d4priMXmLIDsfXOzZvZ 9844) zLBXkPXTgp2uvUFNpxG FuZzEwMzNcZnRuYmpcd BMeZSHuKrVod5avp538 mBTwb6kpCUTiXaM2gXF eEPLvnZGcI144QDRyTG ktc9zrv4UkTRZdnPJgc 3F7MLHEhwcsnKk8gOel M25ce2L3RwfbJ1sbMEV iRNLpZ4XjNX2cZRBsRj c8ZWW1GWS7GEFyBDAtY 5OnLW5vNABbpCYqWKi1 d8sxkMbsDPQfAMN5f3t fBAqlvlYsGE9ppk1cuP w9c0lehkFePLMsGPKnc QMFCDUmF7UxrLjvWb3c vKn1zApoAkfzGTL8Jqw 8ZQ6hmt26zku2wPqqIZ HicumvAlV8UYqrWKTaj uykBKf3RBwqJNBacYW6 ZGUqgDFoY4CoRNQgQL4 letf0TLL7NFnmBAQgMv Q5OOOavUJyHTIzkRckY Urzd263UII0JhIoQF4p T1Faj0H2aW3sxZTtVZA yfFPfYaMrJLLlfd0bpZ ByAMkdg9OoQXS6wyG0n LGyyMNvGEAfJT32Tdco z9YjZujxOFS4NPOfshM fz2Nbv8weQoCimxYzQ2 lgG1OhDVLlGKMwVJIzE iNzwdAwc3Sei5HyvZCm cUn9i1isSJVdXTZidYn hb8zvTTJ1ZHClI0K0oW Yxz1iiIQyuGEWqhYB5d pF8AFKhqKHyA7MqgJ0m OKTaMI8phjg5g3gmDGN 9HKuaUBScYzY2lpG7HE BcaGVhZGVyeTcyMFxmb 510VXY1CbIbZDFci1Is R7HwfOnnZ52qqLtrD71 fOIOpoXgtpZ7ahQirxR 5cZjBcZnMyNFxxbFxwb TNxyjazAKkrpmC7WSdm ielwRCAwVYzgL7ijWdA vQAUsiRhzJGxsx8HwXO XeEXDsQhymbhC7PGQTw 68nULWhr6XcCXLpcB6c tSAbBZsxzuJeySG8FVy hdmUgYmVlbiBkZXZlbG 3eLZHtZU0gMGYbjcQiv w2jtiDcWGRdHBNgZ5Vp cmlzdGljcyBkZXRlcm1 eqpWbLFY4KKAZNJ1IGK YcSQOyu39zQBGtcQnxb N7qpAYlryMpSIMii0Lo wE4ayLYKAKNeH8peHB1 kBNsdl2IheUUvwZEfrH M9YIQco1RmMcScoiSsk ZTlfVOvN1ZmwYtbL0sd IBPkQGJxceRyrQYdx7X qCFIhpIL7nTSbSU4ZIt WFj99rWEMkTFWBnrWbS MDirGdvtZJ8nxJ8gT9y LiBJZiBhcHBsaWNhYmx oYBMuf895dd3tdvH3CV JkRMQbkywvy8RuJXVoF PVxmA52OYOcPDKmcu2y blsppSImcwFmW0Hqygq 3dM9oPAEgTUlxCTIoYH ZzMjJcbGFuZzEwMzNca GljaFxmMVxkYmNoXGYx ZNepM1byCzRnPxNfFyb wYXJ9 [facility] 2021-10-22 15:30:07 Test Item Value Reference Range Interpretation Comments Submitted Clinical History e4tqwVJvBMTec6hlMQU (test code = 25252) mbGFuZzEwMzNcZnRuYm pcdWMxIHtccnRmMVxzc 0MxS7IgYcHiTVejqyTp XGRlZmxhbmcxMDMzXGZ 0bmJqXHVjMVxkZWZmMH juKp7aoAIqzThvGcTeX MZro6uvhxYJxicqxGm8 x3kkKYMpOcK3kYAySSv yK4xjcgMabSTkPSOpAY b2oZ79WDHtaA8eePAwP KcxtqQkUtZ2QKtdOAGz PbI6JCRxaXJjSVYyW6z yZWQwXGdyZWVuMFxibH OcWSX1uHtcl0S1rKOuj GVldHtcZjBcZnMyMiBO v9YiWNp8gQiqO0FyKVQ mJrF0xIWsJXSgGDnwYP BiDYNptfQ7vV32APerl tZ1tEOzl3Phj15ty272 eO1mhOIkWXZ1IJZfCJR caBAzIFXyWWE7ORRkbW MvA0xxDRPeDQ2imtxsE VxsEXbwHMYavXZ3SCJs kVOcC9IcALQxRNlaZYZ jaxf4HwQzSt1omCCyvZ niXPtte2thu0vdnSLqI ie9NSEjCeBtSdtqPRgn q1Jlr0ouBSAtaf4bIPC 8aFVhdNwau2A1fZZuBV VmfCPqrhRkKOGaBdN4J EksHU3qnf87TLAaGHC4 xi9enCRsnWehmoOnhNO nSToqE2KgZMLbi552GC HoC4ZeDTHwe9F3kgAuC iPeXLTtoPP6oeH4DIYs INg5pUMstqQ1cnSkzXX qN4adgH8sDVRbWG1biw sgr5qaDFngYPbkDMIwi SR8gxL4ZSSbwHLcS8We pC6mUIMiCRnwHQQjnzu 6WcKrJu4xcLGkrLzaLL xzYmtwYWdlXHBnbmNvb nRccGduZGVjXHBsYWlu XHBsYWluXGYwXGZzMjR ldJgvmZezlD9tHgAuIi LsAArgBJ9jJUEuA1tqt XHpPKNfVVXcK5koCkBz qZ9loTpwLFqawfGfXSV 3XVqah2qfydemfLNgfr S8oLGjHrOsAnZ0ZYqsl GFpblxmMVxmczIyXGxh xikgYZNhVJqgO4boFwG vPLApqAabAYfmd2EnUE YxXGZzMjJccGFyfX0= Diagnosis (test code = 34) t6fjkLSqHIRkmWT2XrS oKLEoe9nng6IatRNwaG AcOLcaqDFxozVwqf51m GN3iI72KH8xWLZiJtE5 NWFwsdA9Ios0HQBfCML sjFWdT001p5rrg0kros FdwKV1jYryMXDrrfbgA lO4PVnhDCLfvyejRWm1 GVtmIOZfjYP7FOQmeEM oG8ChAZBmSR0nqvb6PR Z6HGlmTAJpDnT7ZYEzf TBcELVpjVenJMsqm302 SQH0NiXhOIWozcGxlHk fdQ2cPtAtDZZEVfOpEK VwtOseQ0JpSZWbcC6ju 5l6QPdcctFmGUt9HBDg W8szjzzfieKdc7FmfB4 eo7bhT8TveYyxC81go0 aykVZhrBD3eXMeCRZid lQeSJPdXSDbuDouG9e5 aXNccGFyfQ== Gross Description (test r4uukZCrQXPatKNNKMz code = 8590685969) wMVxhbnNpXHNwbHRwZ3 WkpgndURtqGD8iOB3ex RdkuXCmgLYhFR0CSOMu ZmYxXHBhcGVydzEyMjQ yWQIcoRYgkDP9CRImVV 1hcmdsMTgwMFxtYXJnc wH5MJQegUYiQ6RlYGHk VV3gqtvfLEA1CJljkM0 efsSREsmwSp7gyCLerT tcZjFcZmNoYXJzZXQwX MOqpBxbQVCcEQn4dU9B YqiiZ20qu8E1Auu9LPB bVDGeE9GiGK4rOYXflK RyV66BSpwgVCN2OWZNP bieBFNhSM1Ek7daBWLq rVIdMOO0CStchCEpBGW iVFRxVJi1OJLtDKogbE WxNK2ifBawOqapcGowa 2VjdCBcXGlkIDUxMDAy FDufVPYaHK6QRgOkNYF 7BXYaBQPuQBt7UDc9OR 9FNjSxFFCmHXA0NXD8W LXeUWv4POxbWD3WVJJl RyDlQBS9SJNcLFZpPLR nZUl1YCKxWMhiNBJcxU FsIFxcZnMgMTAgXFxmY iWnGFMhZDejcsZ1TELr YWluXGJcZnMyMCBBOlx oGKBjTZalpOzmsD7mZR WbE37qn8RAj1XyHV0CQ Qn3roIoauiarV8aGEVt eqTbIBikbLJeR2oaLge hZyWeUbItKWOFq61biU LmuWVmDANov1RiEEf9s qKkP80kM7AjDXhjHHWn wdNyXIJedOnrB2l9gMF 2ANDkXUHjBOZaW30mMR Gcon4inn25fjJgrrZib RRdoMIjDfApf7E7HBTc d2K2YGMxAEMvqMGbqqy iVO45JGSbKPIySO0duN VkIHdpdGggcHJvYmFib SHxqLadvkStfTM4NEJt NIufQIVhgCzdIHv3KYM 3Qt8aaKMxQLSlkoSXXF 5zQHvplw67TBQ9b7lbx WVsZHtcKlxmbGRpbnN0 IEhZUEVSTElOSyBuYW1 lPUxJTktCRUdJTnwyMT RaBcqvdDTOBPK9UDspt RjbrSl8j8dblDQvq7s5 DBlgGRR8nIbQs2qgbWY wQFmkOonojSRvnsX8MG jSGFRTCDaVVzUsAH9rD TtLYplYBjU5XgQwDVN8 ENyVT4QLyNF8Zzs7EDv 8fXtcZmxkcnNsdCBcJz DFmV5diQczhY8ldKCcW 2hcZnMyMCANClxlcGlj EkOebAHrVyNznzU2ULL pmILnKKP6NV8vWNGvok rdQNVyYFOzOCL1HQjhj W07xGRpAVEpRPXvwMMz fVxwbGFpbiANClxzbC0 cGwNtg9ktvOr8KRGMIc tcxTZrjvjlypY3XFJcu 0dzlJfjz1AgrPEuQV3r nCnsuI8mRzYcWmNQAc8 = Disclaimer (test code = z5seeEZqGXOuiIDxEmY 9844) pKFGkIXYsu5ajFTEdhL FuZzEwMzNcZnRuYmpcd GIsPRZcIwPlx1pkz282 nOIbd4paOWUcFnR1kNK yXSTlvMGdI729BSSuFU xgz8iel2MnKCJiuUVhb 8G9SUZEkqehkWu0oUyr G79zj6Z8OkpsR7gmMTI xYKAoS5MnAF4xCBPlCe g7YVO9RWL1TQInKHMoL 8ZkDP3iWKGszPTvMAc8 u2lhdTxaWHHsQXW7y2q xHYanqfGwPC0vlm4bdA n6w3bgggDdDADlOBHml KNKAGIpX0QfgKwhGn6d cGx7cFkfNewxSFJ1Yvi 2MJ0ksj28goz3aCvkWZ EqawmxWwF6MUlxRYPsy wipOTj2KOjiSLVdiSM4 FDKstIOsV8CxVJJtYQ6 gslo5NOO6VJslWAIxHv Z5HXMdrURjIYLmuQopG Lykq026NNH4YiFjSR1s C5Lhv0S0zI3idEVeEIO omJIfUrKnXNEufv9fwE BjUDbxu6CuFZK4utS5i HWxoYZvCKYzDV67Peci r0NyBdtcNEG3LLHmdsX ww5Oko4qpCuVhjwWaI9 cuH3CgNKKcXSLvJVVoA qNcwgPmr5Dud1YacDFj qLw4h7zeLKUdCKLmkMo wn0liQGZ7HSMoP1H4sG Zfa5fyXAwqEAUlsIX8g iU9QSVgzKLwQ9KikR7j NWYeIR5qmbh9h0vvJWY 7ECllQIQwYoC3zwQ0GI BcaGVhZGVyeTcyMFxmb 738YXW8StNmXLOcy9Sz P0IdgGagA20arOqiG11 qBMYstPqvfC4khTdvaE 5cZjBcZnMyNFxxbFxwb YMkqlebQXlssxI9BDrc ffqpAAKfFYyvZ2lqIwH fUMLhrLyqNEuem9BfTG YpZSQeQcpotkG7AWOMa 23cIPAbv8VpSFEebB7f qLEiLZppnbKvgPH0JJr hdmUgYmVlbiBkZXZlbG 3wVHQdCW4lGWOeqwMaq r1nfbInHYArQHGtA5Xa cmlzdGljcyBkZXRlcm1 mejVqTUM9PBPKQP7FBB ItGXZsn05zCJXxyMczf P7ceADywsMaJYXkp2Ov zE6lsHRPLQVrH4scBF3 lJFzhy0XlcJNajKQuyG N9HLMxl7FwOcRycaCvq HYloSYxR6XjkCciH7vv EQBlRTFfcuBhgMVnj9T oTXTcwXG5cHDmOD0KIu OMq83iPLIqBIODrwMpP LSfyPwcwTI6bgR0dP0r LiBJZiBhcHBsaWNhYmx fRDBfy755es9fmkP3WI UfHXHcgtrhz7KpSZWpO LVkqK96OUFaOWDtbe5i rgqwcKJgmhJxI6Kwjds 8rR5jBPRlYXkhFDYrIX ZzMjJcbGFuZzEwMzNca GljaFxmMVxkYmNoXGYx OKzaC8xfTjWgJkSxBzf wYXJ9 [facility], [id number] 18:04:34 Test Item Value Reference Interpretation Comments [...] for thesemodifi cations were determined by [facility] [employer] [facility].If samp le result is greater than 50 0 pg/mL, physician may o rder atiter of the sample. Please contact [employer] [facility] if you wouldlike t o order a retest of this sample to obtain an actua l value.Samples a re held for 1 week after in itial testing date. Perf ormed At:[facility] [id number] [address] [address]Muisucfzqt Director: Andi Taylor Ph.D ., BCLD (ABB)CLIA#: [id number] e: [Automated message] The sy stem which generated this result transmitted ref erence range: <=80. Th e reference range was not u sed to interpret this result as normal/abnormal . Lab Interpretation Abnormal (test code = 66137-8) [facility]vine[facility] Price2022-04-21 18:04:34 Test Item Value Reference Interpretation [...] for thesemodifi cations were determined by [facility] [facility].If samp le result is greater than 50 0 pg/mL, physician may o rder atiter of the sample. Please contact [employer] [facility] if you wouldlike t o order a retest of this sample to obtain an actua l value.Samples a re held for 1 week after in itial testing date. Perf ormed At:[facility] [id number] [address] [facility]aker [id number] Director: Andi Taylor Ph.D ., BCLFallon (ABB)CLIA#: [id number] e: Lab Interpretation Abnormal (test code = 10323-2) [facility] IrvineFungitedavid, [id number] 18:04:34 Test Item Value Reference Interpretation Comments [...] for thesemodifi cations were determined by [facility] [employer] [facility].If samp le result is greater than 50 0 pg/mL, physician may o rder atiter of the sample. Please contact [employer] [facility] if you wouldlike t o order a retest of this sample to obtain an actua l value.Samples a re held for 1 week after in itial testing date. Perf ormed At:[facility] [id number] [address] [place] [id number] Director: Andi Taylor Ph.D ., BCLD (ABB)CLIA#: [id number] e: Lab Interpretation Abnormal (test code = 95219-5) [facility], [id number] 18:04:34 Test Item Value Reference Interpretation Comments [...] for thesemodifi cations were determined by [facility] [facility].If samp le result is greater than 50 0 pg/mL, physician may o rder atiter of the sample. Please contact [employer] [facility] if you wouldlike t o order a retest of this sample to obtain an actua l value.Samples a re held for 1 week after in itial testing date. Perf ormed At:[facility] [id number] [address] [address]Rvkipdfzbd Director: Andi Taylor Ph.D ., BCLD (ABB)CLIA#: [id number] e: Lab Interpretation Abnormal (test code = 48389-4) [facility] IrvineDee, [id number] 18:04:34 Test Item Value Reference Interpretation Comments Range [facility] S-V (test 101 pg/mL <80 H Interpr etation: The code = 9239) [facility] assay does not detect certain fungalspecies s uch as the genus Cryptococ cus (Marcelino et alYancy 1991) wh ichproduces very low levels of [...] for thesemodifi cations were determined by [facility] [employer] [facility].If samp le result is greater than 50 0 pg/mL, physician may o rder atiter of the sample. Please contact [employer] [facility] if you wouldlike t o order a retest of this sample to obtain an actua l value.Samples a re held for 1 week after in itial testing date. Perf ormed At:[facility] [id number] [place], [place] [address]Gpoyzaszmb Director: Andi Taylor Ph.D ., BCLD (ABB)CLIA#: [id number] e: Lab Interpretation Abnormal (test code = 19824-6) [facility] IrvineZak Price2022-04-21 18:04:34 Test Item Value Reference Interpretation [...] rder atiter of the sample. Please contact [employer] [facility] if you wouldlike t o order a retest of this sample to obtain an actua l value.Samples a re held for 1 week after in itial testing date. Perf ormed At:[facility] [id number] [facility]Bell[facility] [place], [place] [address]Krqamsdmko Director: Andi Taylor Ph.D ., BCLD (ABB)CLIA#: [id number] e: Lab Interpretation Abnormal (test code = 94209-8) [facility] IrvineFungitell, Lekyd4139-04-24 18:04:34 Test Item Value Reference Interpretation Comments [...] for thesemodifi cations were determined by [employer] [facility].If samp le result is greater than 50 0 pg/mL, physician may o rder atiter of the sample. Please contact [employer] [facility] if you wouldlike t o order a retest of this sample to obtain an actua l value.Samples a re held for 1 week after in itial testing date. Perf ormed At:[facility] [id number] [address]Ndpoiowcbw Director: Andi Taylor Ph.D ., BCLD (ABB)CLIA#: [id number] e: Lab Interpretation Abnormal (test code = 86829-1) [facility] Path Review 2021-10-18 14:39:17RMP PRReviewed and Electronically signed by Pathologist:Mary Beth Parikh MD, PhD #[id number] [facility] [facility]Un[facility]Res[facility] PCR Panel Path [id number] 14:39:17RMP PRReviewed and Electronically signed by Pathologist:Mary Beth Parikh MD, PhD #[id number] [facility]ITALUn[facility] TexasRespiratory PCR Panel Path [id number] 14:39:17RMP PRReviewed and Electronically signed by Pathologist:Mary Beth Parikh MD, PhD #[id number] [facility] Path Glkqzy1513-16-12 14:39:17RMP PRReviewed and Electronically signed by Pathologist:Mary Beth Parikh MD, PhD #[id number] [facility] Path Review 2021-10-18 14:39:17RMP PRReviewed and Electronically signed by Pathologist:Mary Beth Parikh MD, PhD #[id number] [facility] Path [id number] 14:39:17RMP PRReviewed and Electronically signed by Pathologist:Mary Beth Parikh MD, PhD #[id number] [facility] Path [id number] 14:39:17RMP PRReviewed and Electronically signed by Pathologist:Mary Beth Parikh MD, PhD #[id number] [facility] HospitalRes[facility] Panel, ASSOCIATE FINANCIAL ANALYST [id number] 14:29:47 Test Item Value Reference Range Interpretation [...] 6203) Lab Interpretation (test code = Abnormal 65488-8) [facility], ASSOCIATE FINANCIAL ANALYST Swab 2021-10-18 14:29:47 Test Item Value Reference [...] 6203) Lab Interpretation (test code = Abnormal 26482-1) [facility], ASSOCIATE FINANCIAL ANALYST Swab 2021-10-18 14:29:47 Test Item Value Reference [...] 6203) Lab Interpretation (test code = Abnormal 03172-6) [facility], ASSOCIATE FINANCIAL ANALYST Swab 2021-10-18 14:29:47 Test Item Value Reference [...] 6203) Lab Interpretation (test code = Abnormal 77778-7) [facility], ASSOCIATE FINANCIAL ANALYST Swab 2021-10-18 14:29:47 Test Item Value Reference [...] 6203) Lab Interpretation (test code = Abnormal 80855-6) [facility], ASSOCIATE FINANCIAL ANALYST Swab 2021-10-18 14:29:47 Test Item Value Reference [...] 6203) Lab Interpretation (test code = Abnormal 08734-3) [facility]Res[facility] PCR Panel, ASSOCIATE FINANCIAL ANALYST Swab 2021-10-18 14:29:47 Test Item Value Reference [...] 6203) Lab Interpretation (test code = Abnormal 29778-8) [facility] Glucose [id number] 11:58:24 Test Item Value Reference Interpretation Comments Range POC Glucose (test 196 mg/dL 70-99 H RN Notifie dCapillary code = 04934-6) blood sample s, e.g. obtained by fingerstick, [...] Capillary code = 9554) Performing Lab (test [facility] code = 03559) [facility] MD Marianela gustafson [facility], [address] [place] [address] 770 30; [employer] Machine Operator: Aletha Arciniega MD Lab Interpretation Abnormal (test code = 14584-1) [facility] Glucose [id number] 11:58:24 Test Item Value Reference Interpretation Comments Range POC Glucose (test 196 mg/dL 70-99 H RN Notifie dCapillary code = 63155-5) blood sample s, e.g. obtained by fingerstick, [...] Capillary code = 9554) Performing Lab (test [facility] code = 05188) [facility] Marianela gustafson Clinical [facility], [address] [place] [address]; [employer]apping Machine Operator: Aletha Arciniega MD Lab Interpretation Abnormal (test code = 84341-4) [facility] Glucose [id number] 11:58:24 Test Item Value Reference Interpretation Comments Range POC Glucose (test 196 mg/dL 70-99 H RN Notifie dCapillary code = 95058-4) blood sample s, e.g. obtained by fingerstick, [...] Capillary code = 9554) Performing Lab (test [facility] code = 63963) [facility] Marianela gustafson Clinical [facility], [address] [place] [address] 30; [employer]apping Machine Operator: Aletha Arciniega MD Lab Interpretation Abnormal (test code = 63418-5) [facility] Glucose [id number] 11:58:24 Test Item Value Reference Interpretation Comments Range POC Glucose (test 196 mg/dL 70-99 H RN Notifie dCapillary code = 16522-8) blood sample s, e.g. obtained by fingerstick, [...] Capillary code = 9554) Performing Lab (test [facility] code = 81952) [facility] MD Marianela gustafson Clinical Lab, [address] [place] [address]; [employer]apping Machine Operator: Aletha Arciniega MD Lab Interpretation Abnormal (test code = 89763-0) [facility] Glucose [id number] 11:58:24 Test Item Value Reference Interpretation Comments Range POC Glucose (test 196 mg/dL 70-99 H RN Notifie dCapillary code = 91291-1) blood sample s, e.g. obtained by fingerstick, [...] Capillary code = 9554) Performing Lab (test [facility] code = 99566) [facility] MD Marianela gustafson Clinical Lab, [address] [place] [address]; [employer]apping Machine Operator: Aletha Arciniega MD Lab Interpretation Abnormal (test code = 54196-7) [facility] Glucose [id number] 11:58:24 Test Item Value Reference Interpretation Comments Range POC Glucose (test 196 mg/dL 70-99 H RN Notifie dCapillary code = 65845-6) blood sample s, e.g. obtained by fingerstick, [...] Capillary code = 9554) Performing Lab (test [facility] code = 20707) [facility] MD Marianela gustafson Clinical Lab, [address] [place] [address]; [employer] Lapping Machine Operator: Aletha Arciniega MD Lab Interpretation Abnormal (test code = 11452-1) [facility] Glucose [id number] 11:58:24 Test Item Value Reference Interpretation Comments Range POC Glucose (test 196 mg/dL 70-99 H RN Notifie dCapillary code = 10698-3) blood sample s, e.g. obtained by fingerstick, [...] Capillary code = 9554) Performing Lab (test [facility] code = 95395) [facility] MD Marianela gustafson Clinical Lab, [address] [place] [address] 30; [employer]apping Machine Operator: Aletha Arciniega MD Lab Interpretation Abnormal (test code = 17821-9) [facility] Screening [id number] 18:35:38 Test Item Value Reference Range Interpretation Comments Final Report (test No Methicillin resistant code = 8488) Staphylococcus aureus isolated. Path Review (test The results have been code = 8492) reviewed and electronically signed by Pathologist:Mary Beth Parikh MD, PhD #[id number] [facility] Screening [id number] 18:35:38 Test Item Value Reference Range Interpretation Comments Final Report (test No Methicillin resistant code = 8488) Staphylococcus aureus isolated. Path Review (test The results have been code = 8492) reviewed and electronically signed by Pathologist:Mary Beth Parikh MD, PhD #[id number] [facility] Screening [id number] 18:35:38 Test Item Value Reference Range Interpretation Comments Final Report (test No Methicillin resistant code = 8488) Staphylococcus aureus isolated. Path Review (test The results have been code = 8492) reviewed and electronically signed by Pathologist:Mary Beth Parikh MD, PhD #[id number] [facility] Screening Gocitxw4934-32-04 18:35:38 Test Item Value Reference Range Interpretation Comments Final Report (test No Methicillin resistant code = 8488) Staphylococcus aureus isolated. Path Review (test The results have been code = 8492) reviewed and electronically signed by Pathologist:Mary Beth Parikh MD, PhD #[id number] [facility] Screening [id number] 18:35:38 Test Item Value Reference Range Interpretation Comments Final Report (test No Methicillin resistant code = 8488) Staphylococcus aureus isolated. Path Review (test The results have been code = 8492) reviewed and electronically signed by Pathologist:Mary Beth Parikh MD, PhD #[id number] [facility] Screening [id number] 18:35:38 Test Item Value Reference Range Interpretation Comments Final Report (test No Methicillin resistant code = 8488) Staphylococcus aureus isolated. Path Review (test The results have been code = 8492) reviewed and electronically signed by Pathologist:Mary Beth Parikh MD, PhD #[id number] [facility] Screening [id number] 18:35:38 Test Item Value Reference Range Interpretation Comments Final Report (test No Methicillin resistant code = 8488) Staphylococcus aureus isolated. Path Review (test The results have been code = 8492) reviewed and electronically signed by Pathologist:Mary Beth Parikh MD, PhD #[id number] [facility] Center[facility] Trough Vancomycin trough on 10/17/21@10:30AM. [...] is code = not availablefo r this 72543-7) sample. The donna e reported is the samplecollectio n date. Vanco Tr Dose 10/17/2021 Level, date, a nd time Date (test of previous dos e is code = not availablefo r this 53661-5) sample. The donna e reported is the samplecollectio n date. PAIGE (test Vancomycin trough on code = PAIGE) 10/17/21@10:30AM. Nurse please coordinate with lab to draw trough approximately 11 - 11.5hours after 10/16/21 evening vanco dose. Hold vancomycin doses if trough is greater than 20 and notify . Thanks! [facility] [place] Vancomycin trough on 10/17/21@10:30AM. Nurse please [...] is code = not availablefo r this 64770-3) sample. The donna e reported is the samplecollectio n date. Vanco Tr Dose 10/17/2021 Level, date, a nd time Date (test of previous dos e is code = not availablefo r this 99135-4) sample. The donna e reported is the samplecollectio n date. PAIGE (test Vancomycin trough on code = PAIGE) 10/17/21@10:30AM. Nurse please coordinate with lab to draw trough approximately 11 - 11.5hours after 10/16/21 evening vanco dose. Hold vancomycin doses if trough is greater than 20 and notify MD. Thanks! [facility] Center[facility] Vancomycin trough on 10/17/21@10:30AM. [...] is code = not availablefo r this 00151-9) sample. The donna e reported is the samplecollectio n date. Vanco Tr Dose 10/17/2021 Level, date, a nd time Date (test of previous dos e is code = not availablefo r this 18862-3) sample. The donna e reported is the samplecollectio n date. PAIGE (test Vancomycin trough on code = PAIGE) 10/17/21@10:30AM. Nurse please coordinate with lab to draw trough approximately 11 - 11.5hours after 10/16/21 evening vanco dose. Hold vancomycin doses if trough is greater than 20 and notify . Thanks! [facility] CenterVan[facility] Trough Vancomycin trough on 10/17/21@10:30AM. [...] is code = not availablefo r this 02527-1) sample. The donna e reported is the samplecollectio n date. Vanco Tr Dose 10/17/2021 Level, date, a nd time Date (test of previous dos e is code = not availablefo r this 38583-2) sample. The donna e reported is the samplecollectio n date. PAIGE (test Vancomycin trough on code = PAIGE) 10/17/21@10:30AM. Nurse please coordinate with lab to draw trough approximately 11 - 11.5hours after 10/16/21 evening vanco dose. Hold vancomycin doses if trough is greater than 20 and notify MD. Thanks! [facility] Center[facility] Trough Vancomycin trough on 10/17/21@10:30AM. [...] is code = not availablefo r this 70278-2) sample. The donna e reported is the samplecollectio n date. Vanco Tr Dose 10/17/2021 Level, date, a nd time Date (test of previous dos e is code = not availablefo r this 46895-9) sample. The donna e reported is the samplecollectio n date. PAIGE (test Vancomycin trough on code = PAIGE) 10/17/21@10:30AM. Nurse please coordinate with lab to draw trough approximately 11 - 11.5hours after 10/16/21 evening vanco dose. Hold vancomycin doses if trough is greater than 20 and notify MD. Thanks! [facility] CenterVan[facility] Trough Vancomycin trough on 10/17/21@10:30AM. [...] is code = not availablefo r this 77800-3) sample. The donna e reported is the samplecollectio n date. Vanco Tr Dose 10/17/2021 Level, date, a nd time Date (test of previous dos e is code = not availablefo r this 69256-4) sample. The donna e reported is the samplecollectio n date. PAIGE (test Vancomycin trough on code = PAIGE) 10/17/21@10:30AM. Nurse please coordinate with lab to draw trough approximately 11 - 11.5hours after 10/16/21 evening vanco dose. Hold vancomycin doses if trough is greater than 20 and notify . Thanks! [facility] CenterVan[facility] Trough Vancomycin trough on 10/17/21@10:30AM. [...] is code = not availablefo r this 23676-5) sample. The donna e reported is the samplecollectio n date. Vanco Tr Dose 10/17/2021 Level, date, a nd time Date (test of previous dos e is code = not availablefo r this 35469-4) sample. The donna e reported is the samplecollectio n date. PAIGE (test Vancomycin trough on code = PAIGE) 10/17/21@10:30AM. Nurse please coordinate with lab to draw trough approximately 11 - 11.5hours after 10/16/21 evening vanco dose. Hold vancomycin doses if trough is greater than 20 and notify MD. Thanks! [facility] CenterLegionella Urine Antigen Path [id number] 15:56:29Legionella Urine Antigen Path ReviewReviewed and Electronically signed by Pathologist:Mary Beth Charles, PhD #[id number] [facility] TexasLegion[facility] Urine Antigen Path [id number] 15:56:29Legionella Urine Antigen Path ReviewReviewed and Electronically signed by Pathologist:Mary Beth Charles, PhD #[id number] [facility] [place] Legionella Urine Antigen Path Orjizd1980-30-97 15:56:29Legionella Urine Antigen Path ReviewReviewed and Electronically signed by Pathologist:Mary Beth Charles, PhD #[id number] [facility] TexasLegion[facility] Urine Antigen Path [id number] 15:56:29Legionella Urine Antigen Path ReviewReviewed and Electronically signed by Pathologist:Mary Beth Charles, PhD #[id number] [facility] TexasLegion[facility] Urine Antigen Path [id number] 15:56:29Legionella Urine Antigen Path ReviewReviewed and Electronically signed by Pathologist:Mary Beth Charles, PhD #[id number] [facility] TexasLegion[facility] Urine Antigen Path Enqhcn2248-51-73 15:56:29Legionella Urine Antigen Path ReviewReviewed and Electronically signed by Pathologist:Mary Beth Charles, PhD #[id number] [facility]Leg[facility] Urine Antigen Path Yieape1417-70-07 15:56:29Legionella Urine Antigen Path ReviewReviewed and Electronically signed by Pathologist:Mary Beth Charles, PhD #[id number] [facility] TexasProcalcitonin 2021-10-17 11:00:32Procalcitonin<0.04<=0.08 ng/mLUT [facility]ENTERUn[facility] TexasProcalcitonin2022-04-20 11:00:32Procalcitonin<0.04<=0.08 ng/mLUT [facility]Procal[facility]onin2022-[facility]-20 11:00:32 Procalcitonin<0.04<=0.08 ng/mLUT [facility] CenterPro[facility]2022-[facility]-20 11:00:32 Procalcitonin<0.04<=0.08 ng/mLUT [facility]ENTERUnW[facility] TexasProcalcitonin2022-04-20 11:00:32 Test Item Value Reference Range Interpretation Comments Procalcitonin (test code <0.04 See_Comment Pro calcitonin > 2.00 = 52917-5) ng/mL: Procalci tonin levels above 2. 00 [...] d ilution as it exceeds t he combine mechanic's recommended ching it. Caution should be exercised when interpreting nunez ch values and done in [employer] with clinical c ontext. [Automated mess age] The system which ge nerated this result tra nsmitted reference range : <=0.08 ng/mL. The refe rence range was not u sed to interpret this result as normal/abnormal . [facility] CenterProcalcitonin2022-04-20 11:00:32 Test Item Value Reference Range Interpretation Comments Procalcitonin (test code <0.04 See_Comment Pro calcitonin > 2.00 = 68738-3) ng/mL: Procalci tonin levels above 2. 00 [...] d ilution as it exceeds t he combine mechanic's recommended ching it. Caution should be exercised when interpreting nunez ch values and done in [employer] with clinical c ontext. [Automated mess age] The system which ge nerated this result tra nsmitted reference range : <=0.08 ng/mL. The refe rence range was not u sed to interpret this result as normal/abnormal . [facility] CenterProcalcitonin2022-04-20 11:00:32 Test Item Value Reference Range Interpretation Comments Procalcitonin (test code <0.04 See_Comment Pro calcitonin > 2.00 = 32218-5) ng/mL: Procalci tonin levels above 2. 00 [...] d ilution as it exceeds t he combine mechanic's recommended ching it. Caution should be exercised when interpreting nunez ch values and done in [facility] with clinical c ontext. [Automated mess age] The system which ge nerated this result tra nsmitted reference range : <=0.08 ng/mL. The refe rence range was not u sed to interpret this result as normal/abnormal . [facility] CenterLegionella Urine [id number] 19:49:58 Test Item Value Reference Range Interpretation Comments Legionella Urine Antigen Negative Interpretation (test code = 9531539) [facility] CenterLegionella Urine Tzfnzxe0211-84-43 19:49:58 Test Item Value Reference Range Interpretation Comments Legionella Urine Antigen Negative Interpretation (test code = 9964310) [facility] CenterLegionella Urine Tmhrlyd4579-95-35 19:49:58 Test Item Value Reference Range Interpretation Comments Legionella Urine Antigen Negative Interpretation (test code = 9263795) [facility] CenterLegionella Urine Khzfvcw9044-78-26 19:49:58 Test Item Value Reference Range Interpretation Comments Legionella Urine Antigen Negative Interpretation (test code = 4369007) [facility] CenterLegionella Urine Vwefstp0669-78-82 19:49:58 Test Item Value Reference Range Interpretation Comments Legionella Urine Antigen Negative Interpretation (test code = 9365813) [facility] CenterLegionella Urine Sepoafl0813-10-37 19:49:58 Test Item Value Reference Range Interpretation Comments Legionella Urine Antigen Negative Interpretation (test code = 5999392) [facility] CenterLegionella Urine Dssqtju0020-63-27 19:49:58 Test Item Value Reference Range Interpretation Comments Legionella Urine Antigen Negative Interpretation (test code = 9074267) [facility] Fhowwa5453-88-21 18:06:35Streptococcal Urine Antigen Path ReviewReviewed and Electronically signed by Pathologist:Mary Beth Parikh MD, PhD #[id number] [facility] Hospitaltreptococcal Urine Antigen Path Mdaxkz8335-56-05 18:06:35Streptococcal Urine Antigen Path ReviewReviewed and Electronically signed by Pathologist:Mary Beth Parikh MD, PhD #[id number] [facility] Streptococcal Urine Antigen Path Rrlpzf6416-42-77 18:06:35Streptococcal Urine Antigen Path ReviewReviewed and Electronically signed by Pathologist:Mary Beth Parikh MD, PhD #[id number] [facility] Hospitaltreptococcal Urine Antigen Path Brqlnl1201-46-27 18:06:35 Streptococcal Urine Antigen Path ReviewReviewed and Electronically signed by Pathologist:Mary Beth Parikh MD, PhD #[id number] [facility]trept[facility]rine Antigen Path Review 2021-10-16 18:06:35Streptococcal Urine Antigen Path ReviewReviewed and Electronically signed by Pathologist:Mary Beth Parikh MD, PhD #[id number] [facility]trept[facility] Urine Antigen Path Fkdgxc0805-71-76 18:06:35Streptococcal Urine Antigen Path ReviewReviewed and Electronically signed by Pathologist:Mary Beth Parikh MD, PhD #[id number] [facility] Streptococcal Urine Antigen Path Roflfc7630-01-00 18:06:35Streptococcal Urine Antigen Path ReviewReviewed and Electronically signed by Pathologist:Mary Beth Parikh MD, PhD #[id number] [facility] Hospitaltreptococcus pneumoniae Urine Lyzjcas4352-46-09 16:43:46 Test Item Value Reference Range Interpretation Comments Streptococcal Urine Antigen Negative Negative Interpretation (test code = 70548257) [facility]trept[facility] pneumoniae Urine Sznakym6705-39-22 16:43:46 Test Item Value Reference Range Interpretation Comments Streptococcal Urine Antigen Negative Negative Interpretation (test code = 71262238) [facility]trept[facility] pneumoniae Urine Qqgsoto2808-29-77 16:43:46 Test Item Value Reference Range Interpretation Comments Streptococcal Urine Antigen Negative Negative Interpretation (test code = 54040600) [facility]trept[facility] pneumoniae Urine Xzyfxnp4560-05-97 16:43:46 Test Item Value Reference Range Interpretation Comments Streptococcal Urine Antigen Negative Negative Interpretation (test code = 59852169) [facility]trept[facility] pneumoniae Urine Vgntfty5722-94-24 16:43:46 Test Item Value Reference Range Interpretation Comments Streptococcal Urine Antigen Negative Negative Interpretation (test code = 65669750) [facility]treptococcus pneumoniae Urine Lxkcsfw8813-23-67 16:43:46 Test Item Value Reference Range Interpretation Comments Streptococcal Urine Antigen Negative Negative Interpretation (test code = 21449238) [facility] Hospitaltreptococcus pneumoniae Urine Fhazyqx2875-96-29 16:43:46 Test Item Value Reference Range Interpretation Comments Streptococcal Urine Antigen Negative Negative Interpretation (test code = 09097221) [facility] CenterTroponin T (In[facility])2021-10-15 18:48:52 Test Item Value Reference Range Interpretation Comments Troponin T (test code = 23 ng/L See_Comment H < 19 ng/L Suggest 03133-5) retest at 3 to 6 hours later [...] res ults. [Automated mess age] The system [employer] generated this result transmitted ref erence range: <=18. Th e reference range was not used to int erpret this result as normal/abnormal . Lab Interpretation Abnormal (test code = 04932-9) [facility] CenterTrop[facility] ([facility])2021-10-15 18:48:52 Test Item Value Reference Range Interpretation Comments Troponin T (test code = 23 ng/L <=18 H < 19 ng/L Suggest 20071-0) retest at 3 to 6 hours later [...] ults. Lab Interpretation Abnormal (test code = 77791-6) [facility] CenterT[facility] ([facility])2021-10-15 18:48:52 Test Item Value Reference Range Interpretation Comments Troponin T (test code = 23 ng/L <=18 H < 19 ng/L Suggest 68960-1) retest at 3 to 6 hours later [...] ults. Lab Interpretation Abnormal (test code = 74561-3) [facility] CenterT[facility] ([facility])2021-10-15 18:48:52 Test Item Value Reference Range Interpretation Comments Troponin T (test code = 23 ng/L <=18 H < 19 ng/L Suggest 40638-9) retest at 3 to 6 hours later [...] ults. Lab Interpretation Abnormal (test code = 05322-7) [facility] CenterT[facility] ([facility])2021-10-15 18:48:52 Test Item Value Reference Range Interpretation Comments Troponin T (test code = 23 ng/L See_Comment H < 19 ng/L Suggest 38259-2) retest at 3 to 6 hours later [...] res ults. [Automated mess age] The system [employer] generated this result transmitted ref erence range: <=18. Th e reference range was not used to int erpret this result as normal/abnormal . Lab Interpretation Abnormal (test code = 53672-4) [facility] CenterT[facility] ([facility])2021-10-15 18:48:52 Test Item Value Reference Range Interpretation Comments Troponin T (test code = 23 ng/L See_Comment H < 19 ng/L Suggest 09205-3) retest at 3 to 6 hours later [...] res ults. [Automated mess age] The system [employer] generated this result transmitted ref erence range: <=18. Th e reference range was not used to int erpret this result as normal/abnormal . Lab Interpretation Abnormal (test code = 31690-7) [facility] CenterT[facility] ([facility])2021-10-15 18:48:52 Test Item Value Reference Range Interpretation Comments Troponin T (test code = 23 ng/L See_Comment H < 19 ng/L Suggest 86456-9) retest at 3 to 6 hours later [...] res ults. [Automated mess age] The system [employer] generated this result transmitted ref erence range: <=18. Th e reference range was not used to int erpret this result as normal/abnormal . Lab Interpretation Abnormal (test code = 72723-0) [facility] CenterLDH2022-04-[facility] 16:36:02 Test Item Value Reference Range Interpretation Comments LDH (test code = 247 U/L 135-225 H Results gre ater than 23067-1) 1651 U/L may no t be reliable due to matrix effect w ith extended diluti on as it exceeds the combine mechanic's recommended ching it. Caution should be exercised when interpreting nunez ch values and done in conjunction [facility] clinical contex t. Lab Interpretation (test Abnormal code = 71372-4) [facility] CenterLDH20[facility] 16:36:02 Test Item Value Reference Range Interpretation Comments LDH (test code = 247 U/L 135-225 H Results gre ater than 94652-9) 1651 U/L may no t be reliable due to matrix effect w ith extended diluti on as it exceeds the combine mechanic's recommended ching it. Caution should be exercised when interpreting nunez ch values and done in conjunction [facility] clinical XTWIPx t. Lab Interpretation (test Abnormal code = 92064-5) [facility] CenterLDH20[facility] 16:36:02 Test Item Value Reference Range Interpretation Comments LDH (test code = 247 U/L 135-225 H Results gre ater than 57464-3) 1651 U/L may no t be reliable due to matrix effect w ith extended diluti on as it exceeds the combine mechanic's recommended ching it. Caution should be exercised when interpreting nunez ch values and done in conjunction [facility] clinical [facility] t. Lab Interpretation (test Abnormal code = 36577-1) [facility] CenterLDH20[facility] 16:36:02 Test Item Value Reference Range Interpretation Comments LDH (test code = 247 U/L 135-225 H Results gre ater than 10783-1) 1651 U/L may no t be reliable due to matrix effect w ith extended diluti on as it exceeds the combine mechanic's recommended ching it. Caution should be exercised when interpreting nunez ch values and done in conjunction [facility] clinical contex t. Lab Interpretation (test Abnormal code = 28506-3) [facility] CenterLDH20[facility] 16:36:02 Test Item Value Reference Range Interpretation Comments LDH (test code = 247 U/L 135-225 H Results gre ater than 71230-6) 1651 U/L may no t be reliable due to matrix effect w ith extended diluti on as it exceeds the combine mechanic's recommended ching it. Caution should be exercised when interpreting nunez ch values and done in conjunction [facility] clinical contex t. Lab Interpretation (test Abnormal code = 73159-7) [facility] CenterLDH[facility] 16:36:02 Test Item Value Reference Range Interpretation Comments LDH (test code = 247 U/L 135-225 H Results gre ater than 61330-3) 1651 U/L may no t be reliable due to matrix effect w ith extended diluti on as it exceeds the combine mechanic's recommended ching it. Caution should be exercised when interpreting nunez ch values and done in conjunction [facility] clinical contex t. Lab Interpretation (test Abnormal code = 46424-9) [facility] CenterLDH20[facility] 16:36:02 Test Item Value Reference Range Interpretation Comments LDH (test code = 247 U/L 135-225 H Results gre ater than 63194-4) 1651 U/L may no t be reliable due to matrix effect w ith extended diluti on as it exceeds the combine mechanic's recommended ching it. Caution should be exercised when interpreting nunez ch values and done in conjunction [facility] clinical contex t. Lab Interpretation (test Abnormal code = 28815-1) [facility] CenterNT-Pro BNP (In-House)2021-10-15 16:31:03 Test Item Value Reference Range Interpretation Comments NT ProBNP (test code = 137 pg/mL See_Comment H [Aut omated message] 29021-4) The system [employer] generated this result transmit lakhwinder reference range : <=125. The refe rence range was not u sed to interpret th is result as normal/abnormal . Lab Interpretation (test Abnormal code = 14365-3) [facility] CenterNT[facility] B[facility] ([facility]-House)2021-10-15 16:31:03 Test Item Value Reference Range Interpretation Comments NT ProBNP (test code = 59859-4) 137 pg/mL <=125 H Lab Interpretation (test code = Abnormal 06898-0) [facility] CenterNT[facility] ([facility]House)2021-10-15 16:31:03 Test Item Value Reference Range Interpretation Comments NT ProBNP (test code = 69861-8) 137 pg/mL <=125 H Lab Interpretation (test code = Abnormal 91806-8) [facility] CenterNT[facility] BNP ([facility]-House)2021-10-15 16:31:03 Test Item Value Reference Range Interpretation Comments NT ProBNP (test code = 13338-2) 137 pg/mL <=125 H Lab Interpretation (test code = Abnormal 04033-2) [facility] CenterNT[facility] ([facility]-House)2021-10-15 16:31:03 Test Item Value Reference Range Interpretation Comments NT ProBNP (test code = 137 pg/mL See_Comment H [Aut omated message] 14342-7) The system [employer] generated this result transmit lakhwinder reference range : <=125. The refe rence range was not u sed to interpret th is result as normal/abnormal . Lab Interpretation (test Abnormal code = 73382-8) [facility] CenterNT[facility] ([facility]-House)2021-10-15 16:31:03 Test Item Value Reference Range Interpretation Comments NT ProBNP (test code = 137 pg/mL See_Comment H [Aut omated message] 87423-6) The system [employer] generated this result transmit lakhwinder reference range : <=125. The refe rence range was not u sed to interpret th is result as normal/abnormal . Lab Interpretation (test Abnormal code = 38691-1) [facility] CenterNT[facility] ([facility])2021-10-15 16:31:03 Test Item Value Reference Range Interpretation Comments NT ProBNP (test code = 137 pg/mL See_Comment H [Aut omated message] 30310-9) The system [employer] generated this result transmit lakhwinder reference range : <=125. The refe rence range was not u sed to interpret th is result as normal/abnormal . Lab Interpretation (test Abnormal code = 07102-2) [facility] CenterCreatine Wxqbsq4997-91-60 16:31:01 Test Item Value Reference Range Interpretation Comments CK (test code = 2157-6) 48 U/L 39-308 [facility] CenterCreatine Czylsp3490-87-62 16:31:01 Test Item Value Reference Range Interpretation Comments CK (test code = 2157-6) 48 U/L 39-308 [facility] CenterCreatine Ctgxlq6145-64-78 16:31:01 Test Item Value Reference Range Interpretation Comments CK (test code = 2157-6) 48 U/L 39-308 [facility] CenterCreat[facility] Dwsucm8415-69-75 16:31:01 Test Item Value Reference Range Interpretation Comments CK (test code = 2157-6) 48 U/L 39-308 [facility] CenterCreatine Hermss4654-52-42 16:31:01 Test Item Value Reference Range Interpretation Comments CK (test code = 2157-6) 48 U/L 39-308 [facility] CenterCreat[facility] Rvovej5945-00-19 16:31:01 Test Item Value Reference Range Interpretation Comments CK (test code = 2157-6) 48 U/L 39-308 [facility] CenterCreat[facility] Zaycrj1605-21-90 16:31:01 Test Item Value Reference Range Interpretation Comments CK (test code = 2157-6) 48 U/L 39-308 [facility] CenterCKMB2022-04-18 16:31:00 Test Item Value Reference Range Interpretation Comments CK MB (test code = 2.2 ng/mL See_Comment [Automat ed message] The 30356-0) system which ge nerated this result tra nsmitted reference range : <=10.4. The reference r jose was not used to int erpret this result as normal/abnormal . [facility] [place] 16:31:00 Test Item Value Reference Range Interpretation Comments CK MB (test code = 71976-1) 2.2 ng/mL <=10.4 [facility]2022-04-18 16:31:00 Test Item Value Reference Range Interpretation Comments CK MB (test code = 86606-7) 2.2 ng/mL <=10.4 [facility] Test Item Value Reference Range Interpretation Comments CK MB (test code = 66917-5) 2.2 ng/mL <=10.4 [facility] 16:[facility]:00 Test Item Value Reference Range Interpretation Comments CK MB (test code = 2.2 ng/mL See_Comment [Automat ed message] The 30944-6) system which ge nerated this result tra nsmitted reference range : <=10.4. The reference r jose was not used to int erpret this result as normal/abnormal . [facility]2022-04-18 16:31:00 Test Item Value Reference Range Interpretation Comments CK MB (test code = 2.2 ng/mL See_Comment [Automat ed message] The 81606-2) system which ge nerated this result tra nsmitted reference range : <=10.4. The reference r jose was not used to int erpret this result as normal/abnormal . [facility]2022-04-18 16:31:00 Test Item Value Reference Range Interpretation Comments CK MB (test code = 2.2 ng/mL See_Comment [Automat ed message] The 66757-1) system which ge nerated this result tra nsmitted reference range : <=10.4. The reference r jose was not used to int erpret this result as normal/abnormal . [facility]Lfgmrhivnhwr-[id number] 16:04:24 Test Item Value Reference Range Interpretation Comments COVID19 Not Detected Not Detected (SARS-CoV-2) (test code = 52219-8) COVID19 SARS Inpatient Indication (test Admission code = 61920) Covid 19 Comment See Note The kacy S ARS-CoV-2 (test code = [place] [address]) use on the xenia s Hiwot System [...] sheet for patie nts provided by the combine mechanic ([employer]) can be rev iewed at: https://www.fda .gov/m edia/527339/kunal nload. A fact sheet fo r Health Care pro viders is provided by the combine mechanic ([employer]) and can be reviewed at: https://www.fda .gov/m edia/722426/kunal nload Results must be interpreted wit hin [...] is assay has been authorized by t [facility] for use only un areli Emergency Use Authorization ( EUA) in laboratories that have been CLIA-certified to perform moderate-comple xity and high-comple xity tests. The Microbiology Laboratory at [facility], CLIA Accreditation #[id number] and CAP Accreditation #[id number], verif ied the performance characteristics of this assay. Int ernal controls are ed to monitor all sta ges of the test proces s. [facility])Dtoiotqedjrj-[id number] 16:04:24 Test Item Value Reference Range Interpretation Comments COVID19 Not Detected Not Detected (SARS-CoV-2) (test code = 96301-4) COVID19 SARS Inpatient Indication (test Admission code = 81858) Covid 19 Comment See Note The kacy S ARS-CoV-2 (test code = [place] [address]) use on the xenia s Hiwot System [...] sheet for patie nts provided by the combine mechanic ([employer]) can be rev iewed at: https://www.fda .gov/m edia/575481/kunal nload. A fact sheet fo r Health Care pro viders is provided by the combine mechanic ([employer]) and can be reviewed at: https://www.fda .gov/m edia/943823/kunal nload Results must be interpreted wit hin [...] is assay has been authorized by t [facility] for use only un areli Emergency Use Authorization ( EUA) in laboratories that have been CLIA-certified to perform moderate-comple xity and high-comple xity tests. The Microbiology Laboratory at [facility], CLIA Accreditation #[id number] and CAP Accreditation #[id number], verif ied the performance characteristics of this assay. Int ernal controls are ed to monitor all sta ges of the test proces s. [facility])[id number]-[id number] 16:04:24 Test Item Value Reference Range Interpretation Comments COVID19 Not Detected Not Detected (SARS-CoV-2) (test code = 94608-7) COVID19 SARS Inpatient Indication (test Admission code = 73754) Covid 19 Comment See Note The kacy S ARS-CoV-2 (test code = [place] [address]) use on the xenia s Hiwot System [...] sheet for patie nts provided by the combine mechanic ([employer]) can be rev iewed at: https://www.fda .gov/m edia/899395/kunal nload. A fact sheet fo r Health Care pro viders is provided by the combine mechanic ([employer]) and can be reviewed at: https://www.fda .gov/m edia/412737/kunal nload Results must be interpreted wit hin [...] tests. The Microbiology Laboratory at [facility], CLIA Accreditation #[id number] and CAP Accreditation #[id number], verif ied the performance characteristics of this assay. Int ernal controls are us ed to monitor all sta ges of the test proces s. [facility] ([facility]-2)[id number]-[id number] 16:04:24 Test Item Value Reference Range Interpretation Comments COVID19 Not Detected Not Detected (SARS-CoV-2) (test code = 46941-3) COVID19 SARS Inpatient Indication (test Admission code = 90202) Covid 19 Comment See Note The kacy S ARS-CoV-2 (test code = [place] [address]) use on the xenia s Hi[employer]ot System [...] sheet for patie nts provided by the combine mechanic ([employer]) can be rev iewed at: https://www.fda .gov/m edia/938961/kunal nload. A fact sheet fo r Health Care pro viders is provided by the combine mechanic ([employer]) and can be reviewed at: https://www.fda .gov/m edia/180240/kunal nload Results must be interpreted wit hin [...] Th is assay has been authorized by yevgeniy [facility] for use only un areli Emergency Use Authorization ( EUA) in laboratories that have been CLIA-certified to perform moderate-comple xity and high-comple xity tests. The Microbiology Laboratory at [facility], CLIA Accreditation #[id number] and CAP Accreditation #[id number], verif ied the performance characteristics of this assay. Int ernal controls are us ed to monitor all sta ges of the test proces s. [facility] ([facility]-2)[id number] 16:04:24 Test Item Value Reference Range Interpretation Comments COVID19 Not Detected Not Detected (SARS-CoV-2) (test code = 48901-0) COVID19 SARS Inpatient Indication (test Admission code = 14045) Covid 19 Comment See Note The kacy S ARS-CoV-2 (test code = [place] [address]) use on the xenia s Hi[employer]ot System [...] sheet for patie nts provided by the combine mechanic ([employer]) can be rev iewed at: https://www.fda .gov/m edia/860291/kunal nload. A fact sheet fo r Health Care pro viders is provided by the combine mechanic ([employer]) and can be reviewed at: https://www.fda .gov/m edia/005825/kunal nload Results must be interpreted wit hin [...] Th is assay has been authorized by yevgeniy [facility] for use only un areli Emergency Use Authorization ( EUA) in laboratories that have been CLIA-certified to perform moderate-comple xity and high-comple xity tests. The Microbiology Laboratory at [facility], CLIA Accreditation #[id number] and CAP Accreditation #[id number], verif ied the performance characteristics of this assay. Int ernal controls are us ed to monitor all sta ges of the test proces s. [facility] CenterC[facility] ([facility]CoV-2)[id number] 16:04:24 Test Item Value Reference Range Interpretation Comments COVID19 Not Detected Not Detected (SARS-CoV-2) (test code = 75839-9) COVID19 SARS Inpatient Indication (test Admission code = 85114) Covid 19 Comment See Note The kacy S ARS-CoV-2 (test code = [place] [address]) use on the xenia s Hi[employer]ot System [...] sheet for patie nts provided by the combine mechanic ([employer]) can be rev iewed at: https://www.fda .gov/m edia/493146/kunal nload. A fact sheet fo r Health Care pro viders is provided by the combine mechanic ([employer]) and can be reviewed at: https://www.fda .gov/m edia/389630/kunal nload Results must be interpreted wit hin [...] Th is assay has been authorized by yevgeniy [facility] for use only un areli Emergency Use Authorization ( EUA) in laboratories that have been CLIA-certified to perform moderate-comple xity and high-comple xity tests. The Microbiology Laboratory at [facility], CLIA Accreditation #[id number] and CAP Accreditation #[id number], verif ied the performance characteristics of this assay. Int ernal controls are us ed to monitor all sta ges of the test proces s. [facility] CenterCOVID[facility] ([facility]-CoV-2)[id number] 16:04:24 Test Item Value Reference Range Interpretation Comments COVID19 Not Detected Not Detected (SARS-CoV-2) (test code = 70601-1) COVID19 SARS Inpatient Indication (test Admission code = 96238) Covid 19 Comment See Note The kacy S ARS-CoV-2 (test code = [place] [address]) use on the xenia s [employer]ot System [...] sheet for patie nts provided by the combine mechanic ([employer]) can be rev iewed at: https://www.fda .gov/m edia/488259/kunal nload. A fact sheet fo r Health Care pro viders is provided by the combine mechanic ([employer]) and can be reviewed at: https://www.fda .gov/m edia/403534/kunal nload Results must be interpreted wit hin [...] is assay has been authorized by t [facility] for use only un areli Emergency Use Authorization ( EUA) in laboratories that have been CLIA-certified to perform moderate-comple xity and high-comple xity tests. The Microbiology Laboratory at [facility], CLIA Accreditation #[id number] and CAP Accreditation #[id number], verif ied the performance characteristics of this assay. Int ernal controls are us ed to monitor all sta ges of the test proces s. [facility]era[facility]TT[facility] 15:47:24 Test Item Value Reference Range Interpretation Comments aPTT (test code = 29.9 See_Comment [Automate d message] The 11327-6) system which ge nerated this result transmit lakhwinder reference range : 24.7 - 36.8 second(s). The reference range was not used to interpr et this result as paras l/abnormal. [facility] 15:47:24 Test Item Value Reference Range Interpretation Comments aPTT (test code = 29.9 See_Comment [Automate d message] The 95741-1) system which ge nerated this result transmit lakhwinder reference range : 24.7 - 36.8 second(s). The reference range was not used to interpr et this result as paras l/abnormal. [facility] 15:47:24 Test Item Value Reference Range Interpretation Comments aPTT (test code = 29.9 See_Comment [Automate d message] The 89642-8) system which ge nerated this result transmit lakhwinder reference range : 24.7 - 36.8 second(s). The reference range was not used to interpr et this result as paras l/abnormal. [facility] 15:47:24 Test Item Value Reference Range Interpretation Comments aPTT (test code = 29.9 See_Comment [Automate d message] The 51715-1) system which ge nerated this result transmit lakhwinder reference range : 24.7 - 36.8 second(s). The reference range was not used to interpr et this result as paras l/abnormal. [facility] 15:47:24 Test Item Value Reference Range Interpretation Comments aPTT (test code = 29.9 See_Comment [Automate d message] The 56480-2) system which ge nerated this result transmit lakhwinder reference range : 24.7 - 36.8 second(s). The reference range was not used to interpr et this result as paras l/abnormal. [facility] 15:47:24 Test Item Value Reference Range Interpretation Comments aPTT (test code = 29.9 See_Comment [Automate d message] The 89248-0) system which ge nerated this result transmit lakhwinder reference range : 24.7 - 36.8 second(s). The reference range was not used to interpr et this result as paras l/abnormal. [facility] 15:47:24 Test Item Value Reference Range Interpretation Comments aPTT (test code = 29.9 See_Comment [Automate d message] The 07243-1) system which ge nerated this result transmit lakhwinder reference range : 24.7 - 36.8 second(s). The reference range was not used to interpr et this result as paras l/abnormal. [facility] CenterProthrombin Time with [id number] 15:47:23 Test Item Value Reference Range Interpretation Comments PT (test code = 5902-2) 13.5 See_Comment [Au tomated message] The system [employer] generated this result transmitted ref erence range: 11.5 - 1 3.9 second(s). The reference range was not used to int erpret this result as normal/abnormal . INR (test code = 6301-6) 1.11 0.90-1.10 H Lab Interpretation (test Abnormal code = 79305-4) [facility] CenterProthrombin Time with [id number] 15:47:23 Test Item Value Reference Range Interpretation Comments PT (test code = 5902-2) 13.5 See_Comment [Au tomated message] The system [employer] generated this result transmitted ref erence range: 11.5 - 1 3.9 second(s). The reference range was not used to int erpret this result as normal/abnormal . INR (test code = 6301-6) 1.11 0.90-1.10 H Lab Interpretation (test Abnormal code = 76075-6) [facility] CenterProthrombin Time with [id number] 15:47:23 Test Item Value Reference Range Interpretation Comments PT (test code = 5902-2) 13.5 See_Comment [Au tomated message] The system [employer] generated this result transmitted ref erence range: 11.5 - 1 3.9 second(s). The reference range was not used to int erpret this result as normal/abnormal . INR (test code = 6301-6) 1.11 0.90-1.10 H Lab Interpretation (test Abnormal code = 02514-6) [facility] CenterProthrombin Time with [id number] 15:47:23 Test Item Value Reference Range Interpretation Comments PT (test code = 5902-2) 13.5 See_Comment [Au tomated message] The system [employer] generated this result transmitted ref erence range: 11.5 - 1 3.9 second(s). The reference range was not used to int erpret this result as normal/abnormal . INR (test code = 6301-6) 1.11 0.90-1.10 H Lab Interpretation (test Abnormal code = 37625-2) [facility] CenterProthrombin Time with [id number] 15:47:23 Test Item Value Reference Range Interpretation Comments PT (test code = 5902-2) 13.5 See_Comment [Au tomated message] The system [employer] generated this result transmitted ref erence range: 11.5 - 1 3.9 second(s). The reference range was not used to int erpret this result as normal/abnormal . INR (test code = 6301-6) 1.11 0.90-1.10 H Lab Interpretation (test Abnormal code = 60166-5) [facility] CenterProth[facility]bin Time with [id number] 15:47:23 Test Item Value Reference Range Interpretation Comments PT (test code = 5902-2) 13.5 See_Comment [Au tomated message] The system [employer] generated this result transmitted ref erence range: 11.5 - 1 3.9 second(s). The reference range was not used to int erpret this result as normal/abnormal . INR (test code = 6301-6) 1.11 0.90-1.10 H Lab Interpretation (test Abnormal code = 21919-3) [facility] CenterProth[facility]bin Time with [id number] 15:47:23 Test Item Value Reference Range Interpretation Comments PT (test code = 5902-2) 13.5 See_Comment [Au tomated message] The system [employer] generated this result transmitted ref erence range: 11.5 - 1 3.9 second(s). The reference range was not used to int erpret this result as normal/abnormal . INR (test code = 6301-6) 1.11 0.90-1.10 H Lab Interpretation (test Abnormal code = 51977-6) [facility] CenterRes[facility] Viral Panel + COVID-19, Nasopharyngeal [id number] 01:19:11 Test Item Value Reference Range Interpretation [...] Not Detected Not Detected (test code = 61096-6) Human Metapneumovirus Not Detected Not Detected (test [...] Detected Not Detected Parapertussis (test code = 84760) Bordetella pertussis Not Detected Not Detected (test [...] including SARS-CoV-2, from a single nasopharyngeal swab (SPECIAL EDUCATION SUPERINTENDENT) specimen obtained from individuals suspected of respiratory [...] that may not be detected by an SPECIAL EDUCATION SUPERINTENDENT specimen. Internal controls are used to monitor [...] at [facility], CLIA Accreditation #[id number] and CAP Accreditation #[id number], verified the performance characteristics of this assay. Microbiology Laboratory at [facility] performs the assay using the opvizor System. Lab Interpretation Abnormal (test code = 82826-0) [facility] CenterRes[facility] Viral Panel + COVID-19, Nasopharyngeal [id number] 01:19:11 Test Item Value Reference Range Interpretation [...] Not Detected Not Detected (test code = 02448-3) Human Metapneumovirus Not Detected Not Detected (test [...] Detected Not Detected Parapertussis (test code = 14862) Bordetella pertussis Not Detected Not Detected (test code = 4854) Chlamydiophila Not Detected Not Detected pneumoniae (test code = 5139) Mycoplasma pneumoniae Not Detected Not Detected (test code = 6203) PAIGE (test code = PAIGE) The [employer]Fire RP2.1 is a real-time, nested multiplexed polymerase chain reaction test designed to simultaneously identify nucleic acids from 22 different viruses and bacteria associated with respiratory tract infection, including SARS-CoV-2, from a single nasopharyngeal swab (SPECIAL EDUCATION SUPERINTENDENT) specimen obtained from individuals suspected of respiratory [...] that may not be detected by an SPECIAL EDUCATION SUPERINTENDENT specimen. Internal controls are used to monitor [...] at [facility], CLIA Accreditation #[id number] and CAP Accreditation #[id number], verified the performance characteristics of this assay. Microbiology Laboratory at [facility] performs the assay using the opvizor System. Lab Interpretation Abnormal (test code = 44802-3) [facility] Center[facility] + COVID-19, Nasopharyngeal [id number] 01:19:11 Test Item Value Reference Range Interpretation [...] Not Detected Not Detected (test code = 62935-5) Human Metapneumovirus Not Detected Not Detected (test [...] Detected Not Detected Parapertussis (test code = 14292) Bordetella pertussis Not Detected Not Detected (test [...] including SARS-CoV-2, from a single nasopharyngeal swab (SPECIAL EDUCATION SUPERINTENDENT) specimen obtained from individuals suspected of respiratory [...] that may not be detected by an SPECIAL EDUCATION SUPERINTENDENT specimen. Internal controls are used to monitor [...] at [facility], CLIA Accreditation #[id number] and CAP Accreditation #[id number], verified the performance characteristics of this assay. Microbiology Laboratory at [facility] performs the assay using the opvizor System. Lab Interpretation Abnormal (test code = 16356-5) [facility] Center[facility] + COVID-19, Nasopharyngeal [id number] 01:19:11 Test Item Value Reference Range Interpretation Comments Adenovirus (test code = Not Detected Not Detected 0264) Coronavirus 229E (test Not Detected Not Detected code = 5349) Coronavirus HKU1 (test Detected Not Detected A code = 5350) Coronavirus NL63 (test Not Detected Not Detected code = 5351) Coronavirus OC43 (test Not Detected Not Detected code = 5352) COVID19 (SARS-CoV-2) Not Detected Not Detected (test code = 07330-7) Human Metapneumovirus Not Detected Not Detected (test [...] Detected Not Detected Parapertussis (test code = 92186) Bordetella pertussis Not Detected Not Detected (test [...] including SARS-CoV-2, from a single nasopharyngeal swab (SPECIAL EDUCATION SUPERINTENDENT) specimen obtained from individuals suspected of respiratory [...] that may not be detected by an SPECIAL EDUCATION SUPERINTENDENT specimen. Internal controls are used to monitor [...] at [facility], CLIA Accreditation #[id number] and CAP Accreditation #[id number], verified the performance characteristics of this assay. Microbiology Laboratory at [facility] performs the assay using the opvizor System. Lab Interpretation Abnormal (test code = 61231-8) [facility] Center[facility] + COVID-19, Nasopharyngeal [id number] 01:19:11 Test Item Value Reference Range Interpretation [...] Not Detected Not Detected (test code = 80057-5) Human Metapneumovirus Not Detected Not Detected (test [...] Detected Not Detected Parapertussis (test code = 45437) Bordetella pertussis Not Detected Not Detected (test code = 4854) Chlamydiophila Not Detected Not Detected pneumoniae (test code = 5139) Mycoplasma pneumoniae Not Detected Not Detected (test code = 6203) PAIGE (test code = PAIGE) The [employer]Fire RP2.1 is a real-time, nested multiplexed polymerase chain reaction test designed to simultaneously identify nucleic acids from 22 different viruses and bacteria associated with respiratory tract infection, including SARS-CoV-2, from a single nasopharyngeal swab (SPECIAL EDUCATION SUPERINTENDENT) specimen obtained from individuals suspected of respiratory [...] that may not be detected by an SPECIAL EDUCATION SUPERINTENDENT specimen. Internal controls are used to monitor [...] at [facility], CLIA Accreditation #[id number] and CAP Accreditation #[id number], verified the performance characteristics of this assay. Microbiology Laboratory at [facility] performs the assay using the opvizor System. Lab Interpretation Abnormal (test code = 36413-1) [facility] [id number] 13:32:30 Test Item Value Reference Range Interpretation Comments POC Crea (test 0.6 mg/dL 0.6-1.3 Medications, code = 42793-7) especially h ydroxyurea or supplements, such as [...] Normal eGF R >= 60 code = 47131-9) mL/min/1.73 m2 The eGFR is calcula lakhwinder [...] should be categ orized based on estima lakhwidner GFR. Stage Desc ription GFR mL/min/1.73 m21 [...] Normal eG FR >= 60 code = 71301-7) mL/min/1.73 m2 The eGFR is calcula lakhwinder [...] should be categ orized based on estima lahkwinder GFR. Stage Desc ription GFR mL/min/1.73 m21 [...] code = 6672) Performing Lab [facility] (test code = [facility] gl[place] [address]) Clinical Lab, [address], [place], [place] [address]; Gear Tooth Lapping Machine Operator: Aletha Arciniega MD [facility] [id number] 13:32:30 Test Item Value Reference Range Interpretation Comments POC Crea (test 0.6 mg/dL 0.6-1.3 Medications, code = 53162-2) especially h ydroxyurea or supplements, such as [...] Normal eGF R >= 60 code = 95637-1) mL/min/1.73 m2 The eGFR is calcula lakhwinder [...] Normal eG FR >= 60 code = 98014-3) mL/min/1.73 m2 The eGFR is calcula lakhwinder [...] Yes (test code = 6672) Performing Lab [facility] Main Main [place] [facility] (test code = [facility] [address]) Clinical Lab, [address], [facility] [place] [address]; Gear Tooth Lapping Machine Operator: Aletha Arciniega MD [facility] [id number] 13:32:30 Test Item Value Reference Range Interpretation Comments POC Crea (test 0.6 mg/dL 0.6-1.3 Medications, code = 80727-7) especially h ydroxyurea or supplements, such as [...] Normal eGF R >= 60 code = 50028-5) mL/min/1.73 m2 The eGFR is calcula lakhwinder using the CKD-E PI equation. The e GFR declines with a ge. eGFR <60 mL/min /1.73 m2 is considere d as "decreased" Thi s equation should only be used for pat ients 18 and older. According to [facility] [employer]'s Ki dney Disease Outcome [...] Normal eG FR >= 60 code = 12657-3) mL/min/1.73 m2 The eGFR is calcula lakhwinder [...] Yes (test code = 6672) Performing Lab [facility] (test code = [facility] [address]) Clinical Lab, [address] [place] [address], [place], [place] [address]; Gear Tooth Lapping Machine Operator: Aletha Arciniega MD [facility] [id number] 13:32:30 Test Item Value Reference Range Interpretation Comments POC Crea (test 0.6 mg/dL 0.6-1.3 Medications, code = 09072-6) especially h ydroxyurea or supplements, such as [...] Normal eGF R >= 60 code = 09946-5) mL/min/1.73 m2 The eGFR is calcula lakhwinder [...] Normal eG FR >= 60 code = 45417-4) mL/min/1.73 m2 The eGFR is calcula lakhwinder [...] Yes (test code = 6672) Performing Lab [facility] (test code = [facility] [place] [address]) Clinical Lab, [address] [place] [address]; Gear Tooth Lapping Machine Operator: Aletha Arciniega MD [facility] MD [facility] Notes Date/Time Note Provider Source 2020-04-28 03:18[facility]00-00:00 [facility] EMERGENCY PROVIDER REPORT REPORT#:[id number] REPORT STATUS: Signed DATE:04/28/20 TIME: 317 PATIENT: KARISHMA IYER IV UNIT #: [id number] ROOM/BED: AGE: 64 SEX: M PCP PHYS: No Primary or Family Ph ysician SERVICE AUTHOR: Lang Stewart MD * ALL edits or amendments must be made on the el [employer]/computer document * HPI-Eye Problem General Initial Greet Date/Time 04/28/20 0231 Presentation Chief Complaint Eye R affected Free Text HPI Notes Free Text HPI Notes 64-year male presents to the ER with complaints of right eye pain and irritation after a piece of debris fell into his ey e while trying to unscrew bolt from an RV. He denies any other injuries, dizziness, LOC , nausea, vomiting, headache, dizziness vision loss. Risk-Eye Problem Risk Stratification )( Eye Injury - Adult Risk factors reviewed, [place] Review of Systems ROS Statements All systems rev neg except as marked. Focused Review of Systems Eyes Reports: Blurred R, Redness R. Past Medical History - Adult Stated Complaint POSSIBLE FB OD Allergies Coded Allergies: No Known Allergies (04/28/20) Home Medications Discontinued Scripts CYCLOBENZAPRINE (FLEXERIL) 10 MG PO TID CYCLOBENZAPRINE (FLEXERIL) 10 MG PO TID #30 TAB Prov: 10/05/16 DC: 04/28/20246 Patient stopped taking traMADol (ULTRAM) 50 MG PO Q4H traMADol (ULTRAM) 50 MG PO Q4H #40 TAB Prov: 10/05/16 DC: 04/28/20 0247 Patient stopped taking Reported Medications BUPRENORPHINE/NALOXONE (SUBOXONE 8/2 MG SL FILM) 1 TAB SL BID Calculated suicide risk level: No risk Past Medical History: Reports: Pancreatitis. Denie s: Diabetes mellitus, GERD/gastritis, Hypertension, Kidney disease/stones, Seizure disorder. Drug Use Denies recreational drugs Smoking status for patients 13 years old or olde r: Former Smoker Physical Exam Vital Signs Vital Signs First Documented: Result Date Time Pulse Ox 98 04/28 229 B/P 108/70 04/28 229 B/P Mean 82 04/28 229 O2 Delivery Room air 04/28 229 Temp 36.4 04/28 229 Pulse 68 04/28 229 Resp 16 04/28 229 Last Documented: Result Date Time Pulse Ox 99 04/28 346 B/P 106/75 04/28 346 B/P Mean 85 04/28 346 O2 Delivery Room air 04/28 346 Temp 36.8 04/28 346 Pulse 65 04/28 346 Resp 18 04/28 346 Review of Vital Signs Reviewed, Vital signs norm al Focused PE General/Const General/Const Awake, Alert, Well appearing MS Head Head Atraumatic, Normocephalic Eyes Cornea/Ant Chamber Abrasion R, Fluorescein uptake R. Ears/Nose/Throat Ears/Nose/Throat Airway patent, Mucous membrane s moist, Pharynx NL Skin Skin Color NL, No rash, Warm, Dry, Turgor NL Neurologic Neurologic Oriented X3, Speech NL, No motor def icits, No sensory deficits Re-Evaluation MDM Free Text MDM Notes Free Text MDM Notes 64-year-old male presents with right eye irritat ion and pain DDx includes but is not limited to corneal abras ion, conjunctivitis, corneal ulcer, traumatic iritis Re-Evaluation/Progress Re-Evaluation/Progress Text/Dict Note After performing a bedside Bertrand lamp exam the p atient was administered optic antibiotics for treatment of corneal abrasion. Time of Re-Eval 324 Re-Eval Status Improved ED Course Medication(s) Ordered Medication(s) Ordered: Diagnostic Agents Sig/[place] Start time Last Medication Dose Route Stop Time Status Admin Fluorescein Sodium 1 MG ASDIR 04/28 315 DC EACH EYE 04/28 316 031 Eye, Ear, Nose And Throat (Een Sig/[place] Start time Last Medication Dose Route Stop Time Status Admin Erythromycin 1 APPLIC X1ED STA 04/28 032 DC RIGHT EYE 04/28 032 Tetracaine HCl 1 DROP X1ED STA 04/28 0244 DC RIGHT EYE 04/28 245 031 Patient Discharge Departure Vital Signs/Condition Vital Signs First Documented: Result Date Time Pulse Ox 98 04/28 229 B/P 108/70 04/28 229 B/P Mean 82 04/28 229 O2 Delivery Room air 04/28 229 Temp 36.4 04/28 229 Pulse 68 04/28 022 Resp 16 04/28 229 Last Documented: Result Date Time Pulse Ox 99 04/28 0346 B/P 106/75 / 0346 B/P Mean 85 04/28 0346 O2 Delivery Room air 04/28 346 Temp 36.8 04/28 346 Pulse 65 04/28 0346 Resp 18 04/28 034 All vital signs available at the time of this en try have been reviewed. Condition Stable Clinical Impression Clinical Impression Primary Impression: Right corneal abrasion Disposition Decision Discharge )( Discharged to Home Yes )( Time 033 )( Date 04/28/20 Electronically Signed by Lang Stewart MD n 05/01/20 at 0521 RPT #:[id number] END OF REPORT 2019-08-12 20:15:00-00:00 [facility] ([facility]) EMERGENCY PROVIDER REPORT REPORT#:[id number] REPORT STATUS: Signed DATE:08/12/19 TIME: 2014 PATIENT: KARISHMA IYER IV UNIT #: [id number] ROOM/BED: AGE: 63 SEX: M PCP PHYS: No Primary or Family Ph ysician SERVICE DT: AUTHOR: Reji Devries * ALL edits or amendments must be made on the [employer]computer document * HPI-Rash/Abscess/Cellulitis General Confirmed Patient Yes Initial Greet Date/Time 08/12/192011 Presentation Chief Complaint Rash, Red area Hx Obtained From Patient Onset Occurred One week ago Symptom Duration Since onset Location Generalized (penis) Quality Burning Context Recent Healthcare No recent doctor visit, No rec ent hospitalization Similar Sx Previous Yes Free Text HPI Notes Free Text HPI Notes 64 yo M with a PMH of herpes, pancreatitis prese nts to the ED for a CC of burning rash to penis x 7 days. reports blisters initially now with redness to penis. denies any swelling/pain in testicles, no new sexual partners. Review of Systems ROS Statements All systems rev neg except as marked. Focused Review of Systems Constitutional Denies: Chills, Fatigue, Fever, Lethargy, Malais e, Recent wt loss, Weakness - generalized. Respiratory Denies: Cough, non-productive, Cough, productive , Dyspnea on exertion, Hemoptysis, Parox nocturnal dyspnea, Pleuritic p ain, Shortness of breath, Wheezing. Cardiovascular Denies: Chest pain, Dyspnea on exertion, Edema, Orthopnea, Palpitations, Parox nocturnal dyspnea, Syncope. Musculoskeletal Denies: Back pain, Extremity pain, Extremity swe lling, Joint pain, Joint swelling, Lumbar pain, Myalgia, Neck pain, Thora cic pain. Skin Reports: Rash. Denies: Abrasion, Abscess, Burn, Contusion, Diaphoresis, Erythema, Itching, Jaundice, Laceration, Swellin g, Ulceration. Past Medical History - Adult Stated Complaint burning urination Allergies Coded Allergies: codeine (Mild, rash 08/12/19) Home Medications Active Scripts CYCLOBENZAPRINE (FLEXERIL) 10 MG PO TID CYCLOBENZAPRINE (FLEXERIL) 10 MG PO TID #30 TAB Prov: 10/05/16 traMADol (ULTRAM) 50 MG PO Q4H traMADol (ULTRAM) 50 MG PO Q4H #40 TAB Prov: 10/05/16 Reported Medications BUPRENORPHINE/NALOXONE (SUBOXONE 8/2 MG SL FILM) 1 TAB SL BID Review of Nursing Notes Rev avail, and agree Pt reports no significant: Past surgical history Past Medical History: Reports: Pancreatitis. Denie s: Diabetes mellitus, GERD/gastritis, Hypertension, Kidney disease/stones, Seizure disorder. Drug Use Denies recreational drugs Smoking status for patients 13 years old or olde r: Current every day smoker Pack years (pk/d)*(yrs): 1 Date last smoked: still smoking Physical Exam Vital Signs Vital Signs First Documented: Result Date Time Pulse Ox 98 08/12 2008 B/P 120/72 08/12 2008 B/P Mean 88 08/12 2008 O2 Delivery Room air 08/12 2008 Temp 36.9 08/12 2008 Pulse 74 08/12 2008 Resp 16 08/12 2008 Last Documented: Result Date Time Pulse Ox 98 08/12 2008 B/P 120/72 08/12 2008 B/P Mean 88 08/12 2008 O2 Delivery Room air 08/12 2008 Temp 36.9 08/12 2008 Pulse 74 08/12 2008 Resp 16 08/12 2008 Review of Vital Signs Reviewed Focused PE General/Const General/Const Awake, Alert, Well appearing Resp/Chest Respiratory/Chest Breath sounds NL, Breath soun ds = bilat, No respiratory distress, No rales, No rhonchi, No wheezing Cardiovascular Cardiovascular Heart rate NL, Regular rhythm, H eart sounds NL, Peripheral circulation NL Skin Skin Warm, Dry, Intact Neurologic Neurologic Oriented X3, Speech NL, No motor def icits, No sensory deficits Additional PE Genitourinary Penis Lesions present (Glans). Negative: Discharge pr esent clear. Interpretation Diagnostics Point of Care Testing Pulse Oximetry Pulse Ox % 100 On: Room air Interpretation Interpreted by me, Pulse oximetr y normal Time 2019 Patient Discharge Departure Vital Signs/Condition Vital Signs First Documented: Result Date Time Pulse Ox 98 08/12 2008 B/P 120/72 08/12 2008 B/P Mean 88 08/12 2008 O2 Delivery Room air 08/12 2008 Temp 36.9 08/12 2008 Pulse 74 08/12 2008 Resp 16 08/12 2008 Last Documented: Result Date Time Pulse Ox 98 08/12 2008 B/P 120/72 08/12 2008 B/P Mean 88 08/12 2008 O2 Delivery Room air 08/12 2008 Temp 36.9 /2008 Pulse 74 /2008 Resp 16 08/12 2008 All vital signs available at the time of this en try have been reviewed. Condition Stable Clinical Impression Clinical Impression Primary Impression: Herpes Secondary Impressions: FUNGAL RASH Disposition Decision Discharge )( Discharged to Home Yes )( Time 2019 )( Date 08/12/19 Discharge/Care Plan Counseled Regarding Diagnosi s, Prescriptions, Need for follow-up, When to return to ED Prescriptions acyclovir, clotrimazole Prescriptions Reviewed Risks, Benefits, Alternat ceci treatment Electronically Signed by Reji Devries on 0 08/12/19 at 2019 RPT #:[id number] END OF REPORT 2019-08-12 20:15:00-00:00 [facility] ([facility]) EMERGENCY PROVIDER REPORT REPORT#:[id number] REPORT STATUS: Signed DATE:08/12/19 TIME: 2014 PATIENT: KARISHMA IYER IV UNIT #: [id number] ROOM/BED: AGE: 63 SEX: M PCP PHYS: No Primary or Family Ph ysician SERVICE AUTHOR: Reji Devries * ALL edits or amendments must be made on the [employer]computer document * Reji Devries 08/12/19 2015: HPI-Rash/Abscess/Cellulitis General Confirmed Patient Yes Presentation Chief Complaint Rash, Red area Hx Obtained From Patient Onset Occurred One week ago Symptom Duration Since onset Location Generalized (penis) Quality Burning Context Recent Healthcare No recent doctor visit, No rec ent hospitalization Similar Sx Previous Yes Free Text HPI Notes Free Text HPI Notes 64 yo M with a PMH of herpes, pancreatitis prese nts to the ED for a CC of burning rash to penis x 7 days. reports blisters initially now with redness to penis. denies any swelling/pain in testicles, no new sexual partners. Review of Systems ROS Statements All systems rev neg except as marked. Focused Review of Systems Constitutional Denies: Chills, Fatigue, Fever, Lethargy, Malais e, Recent wt loss, Weakness - generalized. Respiratory Denies: Cough, non-productive, Cough, productive , Dyspnea on exertion, Hemoptysis, Parox nocturnal dyspnea, Pleuritic p ain, Shortness of breath, Wheezing. Cardiovascular Denies: Chest pain, Dyspnea on exertion, Edema, Orthopnea, Palpitations, Parox nocturnal dyspnea, Syncope. Musculoskeletal Denies: Back pain, Extremity pain, Extremity swe lling, Joint pain, Joint swelling, Lumbar pain, Myalgia, Neck pain, Thora cic pain. Skin Reports: Rash. Denies: Abrasion, Abscess, Burn, Contusion, Diaphoresis, Erythema, Itching, Jaundice, Laceration, Swellin g, Ulceration. Past Medical History - Adult Stated Complaint burning urination Allergies Coded Allergies: codeine (Mild, rash 08/12/19) Home Medications Active Scripts CYCLOBENZAPRINE (FLEXERIL) 10 MG PO TID CYCLOBENZAPRINE (FLEXERIL) 10 MG PO TID #30 TAB Prov: 10/05/16 traMADol (ULTRAM) 50 MG PO Q4H traMADol (ULTRAM) 50 MG PO Q4H #40 TAB Prov: 10/05/16 Reported Medications BUPRENORPHINE/NALOXONE (SUBOXONE 8/2 MG SL FILM) 1 TAB SL BID Review of Nursing Notes Rev avail, and agree Pt reports no significant: Past surgical history Past Medical History: Reports: Pancreatitis. Denie s: Diabetes mellitus, GERD/gastritis, Hypertension, Kidney disease/stones, Seizure disorder. Drug Use Denies recreational drugs Smoking status for patients 13 years old or olde r: Current every day smoker Pack years (pk/d)*(yrs): 1 Date last smoked: still smoking Physical Exam Vital Signs Vital Signs First Documented: Result Date Time Pulse Ox 98 08/12 2008 B/P 120/72 08/12 2008 B/P Mean 88 08/12 2008 O2 Delivery Room air 08/12 2008 Temp 36.9 08/12 2008 Pulse 74 08/12 2008 Resp 16 08/12 2008 Last Documented: Result Date Time Pulse Ox 98 08/12 2008 B/P 120/72 08/12 2008 B/P Mean 88 08/12 2008 O2 Delivery Room air 08/12 2008 Temp 36.9 08/12 2008 Pulse 74 08/12 2008 Resp 16 08/12 2008 Review of Vital Signs Reviewed Focused PE General/Const General/Const Awake, Alert, Well appearing Resp/Chest Respiratory/Chest Breath sounds NL, Breath soun ds = bilat, No respiratory distress, No rales, No rhonchi, No wheezing Cardiovascular Cardiovascular Heart rate NL, Regular rhythm, H eart sounds NL, Peripheral circulation NL Skin Skin Warm, Dry, Intact Neurologic Neurologic Oriented X3, Speech NL, No motor def icits, No sensory deficits Additional PE Genitourinary Penis Lesions present (Glans). Negative: Discharge pr esent clear. Interpretation Diagnostics Point of Care Testing Pulse Oximetry Pulse Ox % 100 On: Room air Interpretation Interpreted by me, Pulse oximetr y normal Time 2019 Patient Discharge Departure Vital Signs/Condition Vital Signs First Documented: Result Date Time Pulse Ox 98 08/12 2008 B/P 120/72 08/12 2008 B/P Mean 88 08/12 2008 O2 Delivery Room air 08/12 2008 Temp 36.9 08/12 2008 Pulse 74 08/12 2008 Resp 16 08/12 2008 Last Documented: Result Date Time Pulse Ox 98 08/12 2008 B/P 120/72 08/12 2008 B/P Mean 88 08/12 2008 O2 Delivery Room air 08/12 2008 Temp 36.9 08/12 2008 Pulse 74 08/12 2008 Resp 16 08/12 2008 All vital signs available at the time of this en try have been reviewed. Condition Stable Clinical Impression Clinical Impression Primary Impression: Herpes Secondary Impressions: FUNGAL RASH Disposition Decision Discharge )( Discharged to Home Yes )( Time 2018 )( Date 08/12/19 Discharge/Care Plan Counseled Regarding Diagnosi s, Prescriptions, Need for follow-up, When to return to ED Prescriptions acyclovir, clotrimazole Prescriptions Reviewed Risks, Benefits, Alternat ceci treatment Glenn Tao 08/17/199: HPI-Rash/Abscess/Cellulitis General Initial Greet Date/Time 08/12/192011 Patient Discharge Departure Supervising Physician Note MidLv Saw Pt Alone I have reviewed the PA/ASSOCIATE FINANCIAL ANALYST's note and plan of car e. I was available for consultation as needed at al l times during the patient's visit in the emergency department. I agree with the clinical impression , plan and disposition. Electronically Signed by Reji Devries on 0 08/12/19 at 2020 at 2130 RPT #:[id number] END OF REPORT 2018-12-12 17:44:00-00:00 [facility] ([facility]) EMERGENCY PROVIDER REPORT REPORT#:[id number] REPORT STATUS: Signed DATE:12/12/18 TIME: 1743 PATIENT: KARISHMA IYER IV UNIT #: [id number] ROOM/BED: AGE: 63 SEX: M PCP PHYS: No Primary or Family Ph ysician SERVICE AUTHOR: Génesis Boss ASSOCIATE FINANCIAL ANALYST * ALL edits or amendments must be made on the [employer]computer document * HPI-Ear Pain/Problem/FB General Confirmed Patient Yes Initial Greet Date/Time 12/12/18 1710 PCP none Presentation Chief Complaint Hearing loss R Hx Obtained From Patient Onset Occurred Today Location Entire ear (right) Severity: Onset Pain level 0 out of 10 Severity: Current Pain level 0 out of 10 Associated with Reports: Hearing loss. Context Immunization Status General All up to date Review of Systems ROS Statements All systems rev neg except as marked. Focused Review of Systems Constitutional Denies: Chills, Fever. Ears/Nose/Throat Reports: Hearing loss R. Past Medical History - Adult Stated Complaint HEARING LOSS Allergies Coded Allergies: codeine (Mild, rash 04/07/12) Home Medications Active Scripts CYCLOBENZAPRINE (FLEXERIL) 10 MG PO TID CYCLOBENZAPRINE (FLEXERIL) 10 MG PO TID #30 TAB Prov: 10/05/16 traMADol (ULTRAM) 50 MG PO Q4H traMADol (ULTRAM) 50 MG PO Q4H #40 TAB Prov: 10/05/16 Reported Medications BUPRENORPHINE/NALOXONE (SUBOXONE 8/2 MG SL FILM) 1 TAB SL BID Review of Nursing Notes Rev avail, and agree Past Medical History: Reports: Pancreatitis. Drug Use Denies recreational drugs Smoking status for patients 13 years old or olde r: Never Smoker Physical Exam Vital Signs Vital Signs First Documented: Result Date Time Pulse Ox 98 12/12 1704 B/P 100/64 12/12 1704 B/P Mean 76 12/12 1704 O2 Delivery Room air 12/12 170 Temp 36.8 12/12 1704 Pulse 68 12/12 1704 Resp 18 12/12 1704 Last Documented: Result Date Time Pulse Ox 98 12/12 1704 B/P 100/64 12/12 1704 B/P Mean 76 12/12 1704 O2 Delivery Room air 12/12 1704 Temp 36.8 12/12 1704 Pulse 68 12/12 1704 Resp 18 12/12 1704 Review of Vital Signs Reviewed Focused PE General/Const General/Const Awake, Alert, No acute di stress, Well appearing, Well developed , Well hydrated, Well nourished, Cooperative, No t toxic appearing MS Head Head Normocephalic Ears/Nose/Throat Ears/Nose/Throat Airway patent, Mucous membrane s moist, Pharynx NL Right Ear/Mastoid Ext canal cerumen impact. Left Ear/Mastoid Ext canal cerumen impact. MS Neck Neck Supple, No meningismus, Full range of motion, No adenopathy, No swelling , Non-tender Resp/Chest Respiratory/Chest Breath sounds NL, Breath soun ds = bilat, No respiratory distress, No rales, No rhonchi, No wheezing Cardiovascular Cardiovascular Heart rate NL, Regular r hythm, Heart sounds NL, Cap refill not delayed, Peripheral circulation NL Skin Skin Color NL, No rash, Warm, Dry, Intact, Turg or NL, No swelling Neurologic Neurologic Oriented X3, Speech NL, No m otor deficits, No sensory deficits, CN II - XII intact, Reflexes equal bilat Interpretation Diagnostics Point of Care Testing Pulse Oximetry Pulse Ox % 98 On: Room air Interpretation Interpreted by me, Pulse oximetr y normal Time 1710 Patient Discharge Departure Vital Signs/Condition Vital Signs First Documented: Result Date Time Pulse Ox 98 12/12 1704 B/P 100/64 12/12 1704 B/P Mean 76 12/12 1704 O2 Delivery Room air 12/12 1704 Temp 36.8 12/12 1704 Pulse 68 12/12 1704 Resp 18 12/12 1704 Last Documented: Result Date Time Pulse Ox 98 12/12 1704 B/P 100/64 / 1704 B/P Mean 76 /15 1704 O2 Delivery Room air 12/12 1704 Temp 36.8 12/12 1704 Pulse 68 12/12 1704 Resp 18 12/12 1704 All vital signs available at the time of this en try have been reviewed. Condition Stable Clinical Impression Clinical Impression Primary Impression: Excessive cerumen in both ea r canals Disposition Decision Other )( Time 1737 )( Date 12/12/18 LORIE-screened discharged Yes Discharge/Care Plan Counseled Regarding use of debrox Electronically Signed by Génesis Boss NP 12/12/18 at 1826 RPT #:[id number] END OF REPORT 2018-12-12 17:44:00-00:00 [facility] ([facility]) EMERGENCY PROVIDER REPORT REPORT#:[id number] REPORT STATUS: Signed DATE:12/12/18 TIME: 1743 PATIENT: KARISHMA IYER IV UNIT #: [id number] ROOM/BED: AGE: 63 SEX: M PCP PHYS: No Primary or Family Ph ysician SERVICE AUTHOR: Génesis Boss ASSOCIATE FINANCIAL ANALYST * ALL edits or amendments must be made on the [employer]computer document * Génesis Boss 12/12/18 1744: HPI-Ear Pain/Problem/FB General Confirmed Patient Yes PCP none Presentation Chief Complaint Hearing loss R Hx Obtained From Patient Onset Occurred Today Location Entire ear (right) Severity: Onset Pain level 0 out of 10 Severity: Current Pain level 0 out of 10 Associated with Reports: Hearing loss. Context Immunization Status General All up to date Review of Systems ROS Statements All systems rev neg except as marked. Focused Review of Systems Constitutional Denies: Chills, Fever. Ears/Nose/Throat Reports: Hearing loss R. Past Medical History - Adult Stated Complaint HEARING LOSS Allergies Coded Allergies: codeine (Mild, rash 04/07/12) Home Medications Active Scripts CYCLOBENZAPRINE (FLEXERIL) 10 MG PO TID CYCLOBENZAPRINE (FLEXERIL) 10 MG PO TID #30 TAB Prov: 10/05/16 traMADol (ULTRAM) 50 MG PO Q4H traMADol (ULTRAM) 50 MG PO Q4H #40 TAB Prov: 10/05/16 Reported Medications BUPRENORPHINE/NALOXONE (SUBOXONE 8/2 MG SL FILM) 1 TAB SL BID Review of Nursing Notes Rev avail, and agree Past Medical History: Reports: Pancreatitis. Drug Use Denies recreational drugs Smoking status for patients 13 years old or olde r: Never Smoker Physical Exam Vital Signs Vital Signs First Documented: Result Date Time Pulse Ox 98 12/12 1704 B/P 100/64 12/12 1704 B/P Mean 76 12/12 1704 O2 Delivery Room air 12/12 1704 Temp 36.8 12/12 1704 Pulse 68 12/12 1704 Resp 18 12/12 1704 Last Documented: Result Date Time Pulse Ox 98 12/12 1704 B/P 100/64 12/12 1704 B/P Mean 76 12/12 1704 O2 Delivery Room air 12/12 1704 Temp 36.8 12/12 1704 Pulse 68 12/12 1704 Resp 18 12/12 1704 Review of Vital Signs Reviewed Focused PE General/Const General/Const Awake, Alert, No acute di stress, Well appearing, Well developed , Well hydrated, Well nourished, Cooperative, No t toxic appearing MS Head Head Normocephalic Ears/Nose/Throat Ears/Nose/Throat Airway patent, Mucous membrane s moist, Pharynx NL Right Ear/Mastoid Ext canal cerumen impact. Left Ear/Mastoid Ext canal cerumen impact. MS Neck Neck Supple, No meningismus, Full range of motion, No adenopathy, No swelling , Non-tender Resp/Chest Respiratory/Chest Breath sounds NL, Breath soun ds = bilat, No respiratory distress, No rales, No rhonchi, No wheezing Cardiovascular Cardiovascular Heart rate NL, Regular r hythm, Heart sounds NL, Cap refill not delayed, Peripheral circulation NL Skin Skin Color NL, No rash, Warm, Dry, Intact, Turg or NL, No swelling Neurologic Neurologic Oriented X3, Speech NL, No m otor deficits, No sensory deficits, CN II - XII intact, Reflexes equal bilat Interpretation Diagnostics Point of Care Testing Pulse Oximetry Pulse Ox % 98 On: Room air Interpretation Interpreted by me, Pulse oximetr y normal Time 1710 Patient Discharge Departure Vital Signs/Condition Vital Signs First Documented: Result Date Time Pulse Ox 98 12/12 1704 B/P 100/64 12/12 1704 B/P Mean 76 12/12 1704 O2 Delivery Room air 12/12 170 Temp 36.8 12/12 1704 Pulse 68 12/12 1704 Resp 18 12/12 1704 Last Documented: Result Date Time Pulse Ox 98 12/12 1704 B/P 100/64 12/12 1704 B/P Mean 76 12/12 1704 O2 Delivery Room air 12/12 1704 Temp 36.8 12/12 1704 Pulse 68 12/12 1704 Resp 18 12/12 1704 All vital signs available at the time of this en try have been reviewed. Condition Stable Clinical Impression Clinical Impression Primary Impression: Excessive cerumen in both ea r canals Disposition Decision Other )( Time 1737 )( Date 12/12/18 LORIE-screened discharged Yes Discharge/Care Plan Counseled Regarding use of debrJohanna Alves 12/12/18 1839: HPI-Ear Pain/Problem/FB General Initial Greet Date/Time 12/12/18 1710 Physical Exam Vital Signs Vital Signs Patient Discharge Departure Vital Signs/Condition Vital Signs Supervising Physician Note MidLv Saw Pt Alone I have reviewed the PA/ASSOCIATE FINANCIAL ANALYST's note and plan of car e. I was available for consultation as needed at al l times during the patient's visit in the emergency department. I agree with the clinical impression , plan and disposition. Electronically Signed by Génesis Boss NP o n 12/12/18 at 1826 Electronically Signed by Johanna Foy MD on 0 12/12/18 at 1839 RPT #:[id number] END OF REPORT 2018-11-14 05:01:00-00:00 [facility] ([facility]) EMERGENCY PROVIDER REPORT REPORT#:[id number] REPORT STATUS: Signed DATE:11/14/18 TIME: 0501 PATIENT: KARISHMA IYER IV UNIT #: [id number] ROOM/BED: AGE: 62 SEX: M PCP PHYS: No Primary or Family P hysician SERVICE AUTHOR: Tre Cook MD * ALL edits or amendments must be made on the [employer] document * HPI-Eye Problem General Confirmed Patient Yes Initial Greet Date/Time 11/14/18 0452 Presentation Chief Complaint Eye L affected Hx Obtained From Patient Sudden in Onset? Yes Onset Occurred Yesterday Symptom Duration Since onset Progression since Onset Unchanged Caused by Drilling Context: Occurred at Home Location Eye L Quality Painful Radiation Does not radiate Severity: Onset Moderate Severity: Current Moderate Associated Other L eye pain, L eye redness Exacerbated by Nothing Relieved by Nothing Free Text HPI Notes Free Text HPI Notes 62 y/o M with PMHx of pancre atitis presents to the ED c/o L eye pain and redness s/p drilling yesterday. Pt reports he was using a drill on a trailer and was wearing reading glasses at the time of incident. Portions of this section were scribed by Anuja Quarles on 11/14/18 at 0553 Risk-Eye Problem Risk Stratification )( Eye Injury - Adult Risk factors revie wed, Risk factors N/A, No risk factors Portions of this section were scribed by Anuja Quarles on 11/14/18 at 0507 Review of Systems ROS Statements All systems rev neg except as marked. Focused Review of Systems Constitutional Denies: Chills, Fever. Eyes Reports: Eye pain L, Redness L. Ears/Nose/Throat Denies: Nasal congestion, Nose bleeding, Sore th roat. GI Denies: Abdominal pain, Nausea, Vomiting. Skin Denies: Rash, Swelling. Neurologic Denies: Generalized weakness, Headache, Lighthea ded. Additional Review of Systems Respiratory Denies: Cough, non-productive, Shortness of miky th, Wheezing. Cardiovascular Denies: Chest pain, Edema, Orthopnea. Male Denies: Dysuria, Flank pain, Hematuria. Musculoskeletal Denies: Back pain, Myalgia, Neck pain. Portions of this section were scribed by Anuja Quarles on 11/14/18 at 0507 Past Medical History - Adult Stated Complaint F.B.LT EYE Allergies Coded Allergies: codeine (Mild, rash 04/07/12) Home Medications Active Scripts CYCLOBENZAPRINE (FLEXERIL) 10 MG PO TID CYCLOBENZAPRINE (FLEXERIL) 10 MG PO TID #30 TAB Prov: 10/05/16 traMADol (ULTRAM) 50 MG PO Q4H traMADol (ULTRAM) 50 MG PO Q4H #40 TAB Prov: 10/05/16 Reported Medications BUPRENORPHINE/NALOXONE (SUBOXONE 8/2 MG SL FILM) 1 TAB SL BID Review of Nursing Notes Rev avail, and agree Pt reports no significant: Past surgical history Past Medical History: Reports: Pancreatitis. Drug Use Denies recreational drugs Smoking status for patients 13 years old or olde r: Current every day smoker Portions of this section were scribed by Anuja Quarles on 11/14/18 at 0507 Physical Exam Vital Signs Vital Signs First Documented: Result Date Time Pulse Ox 97 11/14 0449 B/P 96/61 11/14 0449 B/P Mean 72 11/14 044 O2 Delivery Room air 11/14 448 Temp 36.5 11/14 448 Pulse 69 11/14 0449 Resp 18 11/14 448 Last Documented: Result Date Time Pulse Ox 100 11/14 0550 B/P 117/79 11/14 0550 B/P Mean 91 11/14 0550 O2 Delivery Room air 11/14 0550 Temp 36.6 11/14 0550 Pulse 70 11/14 0550 Resp 18 11/14 0550 Review of Vital Signs Reviewed Focused PE General/Const General/Const Alert, No acute distress Text/Dict Notes Coded with paint drippings. Anxious. Smells of tobacco. Eyes Eyes PERRL, EOMI Text/Dict Notes L eye watery. Foreign body in L eye R eye is normal Portions of this section were scribed by Anuja Quarles on 11/14/18 at 0553 Interpretation Diagnostics Point of Care Testing Pulse Oximetry Pulse Ox % 97 On: Room air Interpretation Interpreted by me, Pulse oximetr y normal Time 0449 Portions of this section were scribed by Anuja Quarles on 11/14/18 at 0507 Procedures Foreign Body Removal - Eye Text/Dict Note Numbed pt with tetracaine and used fluor escent dye along with a moist Q-tip to remove a small piece of meta l from the iris of the L eye that was positioned at 12 o'clock. Time 0540 Procedure Performed by ED physician Consent/Setup/Site Prep Verified correct patient , Informed consent provided, Consent from patient, Hand hygiene observed, Sta nd sterile technique Eye/Location/# FB Eye L, Single foreign body Anesthesia/Equipment/Procedure Tetracaine Number of Attempts 1 Post-Procedure/Complications Complete removal, N o complications, Tolerated procedure well, Patient stable Portions of this section were scribed by Anuja Quarles on 11/14/18 at 0553 Re-Evaluation MDM Re-Evaluation/Progress Re-Evaluation/Progress Time of Re-Eval 0541 Re-Eval Status Improved ED Course Medication(s) Ordered Medication(s) Ordered: Diagnostic Agents Sig/[place] Start time Last Medication Dose Route Stop Time Status Admin Fluorescein Sodium See Dose X1ED STA 11/14 0513 DC 11/14 Insts (1) EACH EYE 11/14 0514 0516 Eye, Ear, Nose And Throat (Een Sig/[place] Start time Last Medication Dose Route Stop Time Status Admin Tetracaine HCl 1 DROP X1ED STA 11/14 0502 CAN RIGHT EYE 11/14 0503 Tetracaine HCl 1 DROP X1ED STA 11/14 0502 DC LEFT EYE 11/14 0503 0506 Dose Instructions: (1)Fluorescein Sodium: 1 STRIP TO LEFT EYE Portions of this section were scribed by Anuja Quarles on 11/14/18 at 0553 Patient Discharge Departure Vital Signs/Condition Vital Signs First Documented: Result Date Time Pulse Ox 97 11/14 0449 B/P 96/61 / 0449 B/P Mean 72 11/14 0449 O2 Delivery Room air 11/14 0449 Temp 36.5 11/14 0449 Pulse 69 / 0449 Resp 18 11/14 0449 Last Documented: Result Date Time Pulse Ox 100 / 0550 B/P 117/79 05/ 0550 B/P Mean 91 / 0550 O2 Delivery Room air 05 0550 Temp 36.6 / 0550 Pulse 70 05/ 0550 Resp 18 11/14 0550 All vital signs available at the time of this en try have been reviewed. Condition Improved Clinical Impression Clinical Impression Primary Impression: Corneal foreign body Secondary Impressions: Corneal abrasion Disposition Decision Discharge )( Discharged to Home Yes )( Time 0543 )( Date 11/14/18 Discharge/Care Plan Counseled Regarding Diagnosis, Prescriptions, Ne ed for follow-up, Smoking cessation, When to return to ED Prescriptions Cyclogyl Tobramycin Motrin Prescriptions Reviewed Risks, Benefits Discharge Note I have spoken with the patie nt and/or caregivers. I have explained the patient's condition, diagnoses and castro atment plan based on the information available to me at this time. I have answered the patient's and/ or caregiver's questions and addressed any concerns. The patient and/or careg yakov have as good an understanding of the patient 's diagnosis, condition and treatment plan as can be expected at this point. The vital signs have bee n stable. The patient's condition is stable and appr opriate for discharge from the emergency department. The patient will pursue further outpatient evalu ation with the primary care physician or other designated or consulting phys ician as outlined in the discharge instructions. The patient and/or caregivers are agreeable to this plan of care and follow-up instructions have been exp lained in detail. The patient and/or caregivers have received these instructio ns in written format and have expressed an understanding of the discharge inst ructions. The patient and/or caregivers are aware that any significant change in condition or worsening of symptoms should prompt an immediate return to [facility] or the closest emergency department or a call to 911. Quality Measures Smoking Cessation Screened, tobacco user, Tobacc o cess intervention Tobacco Screening/Cessation 18 years or older, Tobacco user, Smoking cessation offered, Counseled 3-10 minutes Smoking Cessation Counseling The patient was questioned r egarding their smoking habits, and I have determined , as the patient's treating physician, that ther e is a medical necessity in regards to the patient's med ical condition to provide smoking cessation program education. The patient was a dvised to stop smoking and counseled for a period of greater than 3 minutes. The patient was instructed to follow up with a primary care physician for smoking cessation and given i nformation regarding local smoking cessation programs i n the area. The patient received detailed discharge instructions as to how to stop smoking. The patient expressed an understanding of the need to follow up and the plan for smokin g cessation. Supervising Physician Note Scribe Statement Anuja Quarles, 11/14/18 0507, scribing for and in the presence of [Dr. Cook]. Signed By: Anuja Quarles, 11/14/18 0507 Provider Scribed Statement I personally performed the s ervices described in this documentation and reviewed the documentation that was dictated to the scrib e(s) in my presence, and it accurately records my words and actions. Tre Bartlett, 11/14/18 Portions of this section were scribed by Anuja Quarles on 11/14/18 at 0553 at 0703 RPT #:[id number] END OF REPORT
[2022-11-14] MEDS ORDERED: NA CHLORIDE 0.9% 500 ML ONE (22:22)
--- NOTE | 2022-11-14 23:00 | RAD REPORT ---
EXAM DESCRIPTION: RADChest Single View11/14/2022 10:02 pm CLINICAL HISTORY: COUGH COMPARISON: Chest Single View dated 11/06/2022; Chest Single View dated 10/06/2022; Chest Single View d ated 08/29/2022; Chest Single View dated 04/23/2022 TECHNIQUE: Portable AP view of the chest. FINDINGS: Peripheral right apical airspace opacity is smaller but shows increased density, overall u nchanged when compared to an older x-ray 10/06/2022. Patchy left basilar opacification is stable. Zari kground changes of COPD. No pneumothorax or effusion. The cardiomediastinal contours are unremarkable . IMPRESSION: Stable chronic findings, including patchy left basilar opacification which may relate to scarring although recurrent pneumonia cannot be excluded.
[2022-11-14 23:15] LABS: Protime INR 1.19
[2022-11-14 23:26] LABS: Absolute Lymphocytes (CBC) 1.1 K/uL (0.7-4.9); Hematocrit 48.3 % (39.6-49.0); Lymphocytes % 14.2 % (15.3-44.8); MCV 97.1 fL (80-100); MPV 7.3 fL (7.6-11.3); RBC Red Blood Cell Count 4.97 M/uL (4.33-5.43)
[2022-11-14 23:32] LABS: Potassium 3.8 mEq/L (3.5-5.1); Troponin High Sensitivity 5.3 pg/mL (<58.9)
--- NOTE | 2022-11-15 00:05 | EDPHYS ---
Physician Documentation [facility] Name: Chato Moreno IV Age: 66 yrs Sex: Male : 1955 Arrival Date: 11/14/2022 Time: 21:17 Bed 18 Private MD: ED Physician Beth Nicolas HPI: 11/14 21:59 This 66 yrs old Male presents to ER via EMS with complaints of Cough and shortness of sp3 breath. 21:59 66-year-old male with a history of COPD, prior lung cancer treated at [facility] not sp3 currently on any chemotherapy or radiation, history of pneumonia, history of atrial fibrillation now presents to the ED with chief complaint 1 week history of cough, congestion and progressive shortness of breath. Patient is on a home O2 concentrator and he stated that he was trying to "wait it out" but has progressively gotten worse and so he presents to the ED for evaluation. He also drinks alcohol heavily and today has had "a half bottle of wine". He denies any headache, neck pain, chest pain, abdominal pain, nausea, vomiting, diarrhea, travel history, known sick contacts, or any other signs or symptoms on ROS at this time. He does endorse a subjective fever but has not measured it.. Historical: - Allergies: 21:27 No Known Allergies; lg3 - Home Meds: 21:27 Eliquis 5 mg Oral tablet 2 times per day [Active]; memantine Oral [Active]; midodrine lg3 Oral [Active]; pantoprazole oral [Active]; Seroquel Oral [Active]; buprenorphine-naloxone 8-2 mg sublingual film 0.5 film TID [Active]; Megestrol Acetate Oral [Active]; - PMHx: 21:27 COPD; Emphysema; Lung Cancer; Pneumonia; Atrial fibrillation; lg3 - Immunization history:: Adult Immunizations unknown. - Social history:: Smoking status: Patient reports the use of cigarette tobacco products, smokes one pack cigarettes per day. Patient uses alcohol, on a daily basis. patient/guardian reports chronic longstanding heavy alcohol consumption. patient/guardian reports recent binge of alcohol consumption. ROS: 22:00 Constitutional: Negative for fever, chills, and weight loss, Eyes: Negative for injury, sp3 pain, redness, and discharge, Neck: Negative for injury, pain, and swelling, Abdomen/GI: Negative for abdominal pain, nausea, vomiting, diarrhea, and constipation, Back: Negative for injury and pain, MS/Extremity: Negative for injury and deformity, Skin: Negative for injury, rash, and discoloration, Neuro: Negative for headache, weakness, numbness, tingling, and seizure, Psych: Negative for depression, anxiety, suicide ideation, homicidal ideation, and hallucinations, Allergy/Immunology: Negative for hives, rash, and allergies, Endocrine: Negative for neck swelling, polydipsia, polyuria, polyphagia, and marked weight changes. 22:00 All other systems are negative. Exam: 22:01 Constitutional: This is a well developed, well nourished patient who is awake, alert, sp3 and in no acute distress. Head/Face: Normocephalic, atraumatic. Eyes: Pupils equal round and reactive to light, extra-ocular motions intact. Lids and lashes normal. Conjunctiva and sclera are non-icteric and not injected. Cornea within normal limits. Periorbital areas with no swelling, redness, or edema. ENT: Nares patent. No nasal discharge, no septal abnormalities noted. External auditory canals are clear. Oropharynx with no redness, swelling, or masses, exudates, or evidence of obstruction, uvula midline. Mucous membranes moist. Neck: Trachea midline, no thyromegaly or masses palpated, and no cervical lymphadenopathy. Supple, full range of motion without nuchal rigidity, or vertebral point tenderness. No Meningismus. Chest/axilla: Normal chest wall appearance and motion. Nontender with no deformity. No lesions are appreciated. Abdomen/GI: Soft, non-tender, with normal bowel sounds. No distension or tympany. No guarding or rebound. No evidence of tenderness throughout. Back: No spinal tenderness. No costovertebral tenderness. Full range of motion. Skin: Warm, dry with normal turgor. Normal color with no rashes, no lesions, and no evidence of cellulitis. MS/ Extremity: Pulses equal, no cyanosis. Neurovascular intact. Full, normal range of motion. Neuro: Awake and alert, GCS 15, oriented to person, place, time, and situation. Cranial nerves II-XII grossly intact. Motor strength 5/5 in all extremities. Sensory grossly intact. Cerebellar exam normal. Normal gait. Psych: Awake, alert, with orientation to person, place and time. Behavior, mood, and affect are within normal limits. 22:01 Cardiovascular: Rate: tachycardic. 22:01 ECG was reviewed by the Attending Physician. EKG is demonstrates sinus tachycardia at 114 bpm with normal intervals, leftward axis, nonspecific diffuse ST/T changes without evidence of acute ischemia. 22:02 Respiratory: Coarse breath sounds bilaterally.. sp3 Vital Signs: 21:22 BP 124 / 95; Pulse 111; Resp 19 S; Temp 98.7(TE); Pulse Ox 98% on 4 lpm NC; Weight lg3 54.43 kg (R); Height 5 ft. 6 in. (R); 23:06 BP 125 / 78; Pulse 94; Resp 18 S; Pulse Ox 99% on 4 lpm NC; lg3 11/15 01:19 BP 177 / 82; Pulse 94; Resp 17 S; Pulse Ox 99% on 2 lpm NC; lg3 11/14 21:22 Body Mass Index 19.37 (54.43 kg, 167.64 cm) lg3 MDM: 11/14 21:49 Patient medically screened. sp3 22:02 Data reviewed: vital signs, nurses notes, lab test result(s), EKG, radiologic studies. sp3 ED course: 66-year-old male with extensive past medical history of COPD and prior lung cancer now presents with chief complaint cough and shortness of breath. Will evaluate for pneumonia, other infectious process, acute coronary syndrome, pulmonary embolism, metabolic derangement, among others. Work-up will include CT scan of the chest PE protocol, EKG, laboratory values, EtOH level, and general supportive care. If work-up is negative there is possibility of discharge versus admission for any indicated treatment plans.. 11/15 00:11 ED course: Possible pneumonia on imaging. Lactate is 3.2. He now has progressive sp3 wheezing. We will start nebulizers and IV antibiotics. His prior blood cultures demonstrated Levaquin resistant Staph aureus therefore cefepime and vancomycin have been chosen. Will place patient in observation status under hospitalist medicine. IV fluids have also been ordered.. 11/14 21:47 Order name: Basic Metabolic Panel; Complete Time: 23:58 sp3 11/14 21:47 Order name: CBC with Diff; Complete Time: 01:11 sp3 11/14 21:47 Order name: Magnesium; Complete Time: 23:58 3 11/14 21:47 Order name: NT PRO-BNP; Complete Time: 23:58 [facility] 11/14 21:47 Order name: Troponin HS; Complete Time: 23:58 3 11/14 21:52 Order name: ETOH Level; Complete Time: 23:58 [facility] 11/14 21:54 Order name: PT-INR; Complete Time: 23:58 [facility] 11/14 21:56 Order name: Lactate w/ 2H reflex if indic.; Complete Time: 23:58 [facility] 11/14 22:04 Order name: Flu; Complete Time: 01:11 [facility] 11/14 22:04 Order name: SARS-COV-2 RT PCR; Complete Time: 23:58 [facility] 11/14 23:31 Order name: CBC Smear Scan; Complete Time: 01:11 [facility] 11/15 00:03 Order name: Blood Culture Adult (2) [facility] 11/14 21:47 Order name: XRAY Chest (1 view); Complete Time: 23:58 [facility] 11/14 22:03 Order name: CT Chest For PE Angio 3 11/14 21:47 Order name: EKG; Complete Time: 21:48 [facility] 11/14 21:47 Order name: Cardiac monitoring; Complete Time: 21:49 [facility] 11/14 21:47 Order name: EKG - Nurse/Tech; Complete Time: 21:49 3 11/14 21:47 Order name: IV Saline Lock; Complete Time: 21:49 [facility] 11/14 21:47 Order name: Labs collected and sent; Complete Time: 21:49 [facility] 11/14 21:47 Order name: O2 Per Protocol; Complete Time: 21:49 3 11/14 21:47 Order name: O2 Sat Monitoring; Complete Time: 21:49 sp3 Administered Medications: 11/14 22:38 Drug: NS 0.9% IV 500 ml Route: IV; Rate: bolus; Site: right upper arm; 3 11/15 01:19 Follow up: IV Status: Completed infusion; IV Intake: 500ml 3 00:08 CANCELLED (Change medd): levofloxacin IVPB 500 mg 100 ml IVPB once over 60 mins 3 01:18 Drug: HYDROmorphone IVP 1 mg Route: IVP; Site: right upper arm; lg3 02:01 Follow up: Response: No adverse reaction; No change in condition; RASS: Restless (+1) lg3 01:18 Drug: Cefepime IVPB 1 grams Route: IVPB; Rate: 200 ml/hr; Infused Over: 30 mins; Site: lg3 right upper arm; 02:01 Follow up: Response: No adverse reaction; IV Status: Completed infusion; IV Intake: lg3 100ml 01:18 Not Given (Physician Discretion): vancoMYCIN IVPB 1 grams IVPB once over 2 hrs lg3 01:18 Drug: Albuterol Inhalation 2.5 mg Route: Inhalation; lg3 02:01 Follow up: Response: No adverse reaction lg3 01:18 Drug: Ipratropium Inhalation Aerosol 0.5 mg Route: Inhalation; lg3 02:01 Follow up: Response: No adverse reaction lg3 01:19 Drug: NS 0.9% IV 1000 ml Route: IV; Rate: 1 bolus; Site: right upper arm; lg3 02:01 Follow up: IV Status: Infusion continued upon admission lg3 Disposition Summary: 11/15/22 00:05 Hospitalization Ordered Hospitalization Status: Observation sp3 Provider: Fab Monroe sp3 Location: Telemetry/[facility] (observation) sp3 Condition: Stable sp3 Problem: an acute exacerbation sp3 Symptoms: have worsened sp3 Bed/Room Type: Standard sp3 Room Assignment: [facility](11/15/22 00:50) jb5 Diagnosis - COPD, Pneumonia sp3 Forms: - Medication Reconciliation Form sp3 - SBAR form sp3 Signatures: Dispatcher [employer] EDIleana Cole jb5 Tara Collins RN RN lg3 Beth Nicolas MD MD sp3 Larissa Santa PA-C PAAbeba sb4 Corrections: (The following items were deleted from the chart) 00:08 00:03 levofloxacin IVPB 500 mg 100 ml IVPB once over 60 mins ordered. sp3 sp3 00:50 00:05 sp3 jb5
--- NOTE | 2022-11-15 00:05 | ER ---
Nurse's Notes [facility] Name: Chato Moreno IV Age: 66 yrs Sex: Male : 1955 Arrival Date: 11/14/2022 Time: 21:17 Bed 18 Private MD: Diagnosis: COPD, Pneumonia Presentation: 11/14 21:22 Chief complaint: EMS states: toned out for SOB. pt not wearing home O2 on arrival. pt lg3 placed on oxygen. 99% on 4L. pt reports cough and pain all over. pt smells of ETOH and reports daily use. Coronavirus screen: Client denies travel out of the [place] in the last 14 days. At this time, the client does not indicate any symptoms associated with coronavirus-19. Ebola Screen: No symptoms or risks identified at this time. Initial Sepsis Screen: Does the patient meet any 2 criteria? No. Patient's initial sepsis screen is negative. Does the patient have a suspected source of infection? No. Patient's initial sepsis screen is negative. Risk Assessment: Do you want to hurt yourself or someone else? Patient reports no desire to harm self or others. Onset of symptoms is unknown. 21:22 Method Of Arrival: EMS: [facility] lg3 21:22 Acuity: [facility] 3 lg3 Triage Assessment: 21:27 General: Appears in no apparent distress. comfortable, Behavior is fussy, restless. lg3 Pain: Complains of pain in all over. EENT: No deficits noted. No signs and/or symptoms were reported regarding the EENT system. Neuro: No deficits noted. Swift Agitation-Sedation Scale (RASS): +1 Restless Level of Consciousness is awake, alert, obeys commands, Oriented to person, place. Cardiovascular: No deficits noted. Denies chest pain, Capillary refill < 3 seconds Clubbing of nail beds is absent Patient's skin is warm and dry. Respiratory: Reports shortness of breath cough that is productive, hacking, persistent Airway is patent Respiratory effort is even, unlabored, Respiratory pattern is regular, symmetrical, Breath sounds with crackles bilaterally. GI: No deficits noted. No signs and/or symptoms were reported involving the gastrointestinal system. Abdomen is flat, non-distended. : No deficits noted. No signs and/or symptoms were reported regarding the genitourinary system. Derm: No deficits noted. No signs and/or symptoms reported regarding the dermatologic system. Skin is intact, is thin, Skin is dry, Skin is normal, Skin temperature is warm. Musculoskeletal: No deficits noted. Circulation, motion, and sensation intact. Range of motion: intact in all extremities. Historical: - Allergies: 21:27 No Known Allergies; lg3 - Home Meds: 21:27 Eliquis 5 mg Oral tablet 2 times per day [Active]; memantine Oral [Active]; midodrine lg3 Oral [Active]; pantoprazole oral [Active]; Seroquel Oral [Active]; buprenorphine-naloxone 8-2 mg sublingual film 0.5 film TID [Active]; Megestrol Acetate Oral [Active]; - PMHx: 21:27 COPD; Emphysema; Lung Cancer; Pneumonia; Atrial fibrillation; lg3 - Immunization history:: Adult Immunizations unknown. - Social history:: Smoking status: Patient reports the use of cigarette tobacco products, smokes one pack cigarettes per day. Patient uses alcohol, on a daily basis. patient/guardian reports chronic longstanding heavy alcohol consumption. patient/guardian reports recent binge of alcohol consumption. Screenin:[facility] ED Fall Risk Assessment (Adult) History of falling in the last 3 months, lg3 including since admission No falls in past 3 months (0 pts). Abuse screen: Denies threats or abuse. Denies injuries from another. Nutritional screening: No deficits noted. Tuberculosis screening: No symptoms or risk factors identified. Assessment: 21:32 General: see triage assessment . lg3 23:06 Reassessment: Patient appears in no apparent distress at this time. No changes from lg3 previously documented assessment. Patient and/or family updated on plan of care and expected duration. Pain level reassessed. Patient is alert, oriented x 3, equal unlabored respirations, skin warm/dry/pink. 11/15 01:19 Reassessment: Patient appears in no apparent distress at this time. No changes from lg3 previously documented assessment. Patient and/or family updated on plan of care and expected duration. Pain level reassessed. Patient is alert, oriented x 3, equal unlabored respirations, skin warm/dry/pink. 01:29 General: nurse unavailable to take report. will call back . lg3 Vital Signs: 11/14 21:22 BP 124 / 95; Pulse 111; Resp 19 S; Temp 98.7(TE); Pulse Ox 98% on 4 lpm NC; Weight lg3 54.43 kg (R); Height 5 ft. 6 in. (R); 23:06 BP 125 / 78; Pulse 94; Resp 18 S; Pulse Ox 99% on 4 lpm NC; lg3 11/15 01:19 BP 177 / 82; Pulse 94; Resp 17 S; Pulse Ox 99% on 2 lpm NC; lg3 11/14 21:22 Body Mass Index 19.37 (54.43 kg, 167.64 cm) lg3 ED Course: 11/14 21:19 Patient arrived in ED. kl 21:24 Beth Nicolas MD is Attending Physician. sp3 21:27 Triage completed. lg3 21:27 Arm band placed on right wrist. lg3 21:32 Patient has correct armband on for positive identification. Placed in gown. Bed in low lg3 position. Call light in reach. Side rails up X2. Client placed on continuous cardiac and pulse oximetry monitoring. NIBP monitoring applied. awake overnight monitor on. Door closed. Noise minimized. Warm blanket given. 21:32 Oxygen administration via nasal cannula \T\ 4L/min. lg3 21:44 Tara Collins, RN is Primary Nurse. lg3 21:44 Inserted saline lock: 22 gauge in right upper arm, using aseptic technique. Blood lg3 collected. 21:56 PT-INR Sent. lg3 21:56 ETOH Level Sent. lg3 22:04 XRAY Chest (1 view) In Process Unspecified. EDMS 22:13 Lactate w/ 2H reflex if indic. Sent. lg3 22:13 PT-INR Sent. lg3 22:38 SARS-COV-2 RT PCR Sent. lg3 22:38 Flu Sent. lg3 11/15 00:04 Fab Monroe is Hospitalizing Provider. sp3 00:06 CT Chest For PE Angio In Process Unspecified. EDMS 01:20 No provider procedures requiring assistance completed. Patient admitted, IV remains in lg3 place. intact, No redness/swelling at site. Administered Medications: 11/14 22:38 Drug: NS 0.9% IV 500 ml Route: IV; Rate: bolus; Site: right upper arm; lg3 11/15 01:19 Follow up: IV Status: Completed infusion; IV Intake: 500ml lg3 00:08 CANCELLED (Change medd): levofloxacin IVPB 500 mg 100 ml IVPB once over 60 mins sp3 01:18 Drug: HYDROmorphone IVP 1 mg Route: IVP; Site: right upper arm; lg3 02:01 Follow up: Response: No adverse reaction; No change in condition; RASS: Restless (+1) lg3 01:18 Drug: Cefepime IVPB 1 grams Route: IVPB; Rate: 200 ml/hr; Infused Over: 30 mins; Site: lg3 right upper arm; 02:01 Follow up: Response: No adverse reaction; IV Status: Completed infusion; IV Intake: lg3 100ml 01:18 Not Given (Physician Discretion): vancoMYCIN IVPB 1 grams IVPB once over 2 hrs lg3 01:18 Drug: Albuterol Inhalation 2.5 mg Route: Inhalation; lg3 02:01 Follow up: Response: No adverse reaction lg3 01:18 Drug: Ipratropium Inhalation Aerosol 0.5 mg Route: Inhalation; lg3 02:01 Follow up: Response: No adverse reaction lg3 01:19 Drug: NS 0.9% IV 1000 ml Route: IV; Rate: 1 bolus; Site: right upper arm; lg3 02:01 Follow up: IV Status: Infusion continued upon admission lg3 Intake: 01:19 IV: 500ml; Total: 500ml. lg3 02:01 IV: 100ml; Total: 600ml. lg3 Outcome: 00:05 Decision to Hospitalize by Provider. sp3 02:02 Patient left the ED. lg3 Signatures: Dispatcher [employer] EDMS Kasie Lui RN RN kl Gibson, Lacie, RN RN lg3 Beth Nicolas MD MD sp3
--- NOTE | 2022-11-15 00:56 | P.HP ---
Certification for Inpatient Patient admitted to: Observation With expected LOS: <2 Midnights Patient will require the following post-hospital care: None Practitioner: I am a practitioner with admitting privileges, knowledge of patient current condition, hospital course, and medical plan of care. Services: Services provided to patient in accordance with Admission requirements found in Title 42 Section 412.3 of the Code of Federal Regulations Patient History Date of Service: 11/15/22 Reason for admission: Pneumonia, Severe Sepsis History of Present Illness: Mr. Moreno is a 66-year-old male with past medical history of lung cancer status post radiation & chemotherapy, COPD on home O2, chronic pain, PE on eliquis, atrial fibrillation, and alcoholism who presented to the emergency department via EMS with complaints of shortness of breath. EMS noted that patient was intoxicated and saturating 74% on RA, not wearing his home O2. He was worked up in the emergency department- labs significant for lactate 3.2, alcohol 295, covid/flu negative. Chest CTA showed " Lingular opacity concerning for pneumonia or scarring. Continued limited evaluation of the right upper lobe subsegmental branches. No central or proximal pulmonary emboli. Advanced diffuse chronic lung changes. Wall thickening of the visualized esophagus with air-fluid level. Small hiatal hernia. Hepatic steatosis." He was given IV fluids, nebs, and started on vancomyin and cefepime. ED provider wishes to admit patient for further management. Allergies No Known Allergies Allergy (Verified 10/07/22 13:27) Home medications list reviewed: Yes Home Medications: Megestrol [Megace*] 40 mg PO BID 03/07/22 Quetiapine [Seroquel*] 75 mg PO BEDTIME 03/07/22 Buprenorphine/Nalox 0.5 film SL DAILY 08/29/22 Apixaban [Eliquis] 5 mg PO BID 30 Days #60 tablet 08/30/22 Apixaban [Eliquis] 10 mg PO BID 7 Days #14 tablet 08/30/22 Memantine HCl [Namenda*] 10 mg PO BID 30 Days #60 tab 08/31/22 Midodrine HCl [Proamatine*] 5 mg PO BID 30 Days #30 tab 08/31/22 Albuterol Neb [Proventil 0.083% Neb Soln] 2.5 mg NEB [id number] PRN #60 amp 10/07/22 Amox/K Clav [Augmentin 600 MG/5 ML Susp] 5 ml PO BID #100 ml 10/07/22 Azithromycin Tab [Zithromax*] 250 mg PO DAILY #5 tab 10/07/22 Ipratropium Neb [Atrovent*] 0.5 mg NEB Q6HP PRN #60 amp 10/07/22 Nystatin 5 ml PO Q6H #500 ml 10/07/22 Pantoprazole [Protonix Tab] 40 mg PO BID #60 tab 10/07/22 predniSONE [Deltasone] 20 mg PO BID #11 tab 10/07/22 - Past Medical/Surgical History Diabetic: No -: Chronic pain -: Anorexia -: COPDon home O2 -: History of lung cancer, small cell lung cancer with mets -: Pulmonary Embolism -: Atrial fibrillation Past Surgical History: Patient denies surgical history Psychosocial/ Personal History: Patient is retired and lives at home with his . - Family History Sister -: Cancer - Social History Smoking Status: Current every day smoker Alcohol use: Yes CD- Drugs: No Caffeine use: No Place of Residence: Home Review of Systems General: Fever Respiratory: Shortness of Breath Physical Examination - Vital Signs Temperature: 98.7 F Blood Pressure: 177/82 Pulse: 94 Respirations: 17 Pulse Ox (%): 99 (2L NC) - Physical Exam General: Alert, In no apparent distress, Other (Frail) HEENT: Atraumatic, EOMI, Sclerae nonicteric Neck: Supple, 2+ carotid pulse no bruit, No LAD, Without JVD or thyroid abnormality Respiratory: Other (coarse breath sounds all lung hood) Cardiovascular: Regular rate/rhythm, Normal S1 S2 Gastrointestinal: Normal bowel sounds, No tenderness Musculoskeletal: No tenderness Integumentary: No rashes Neurological: Normal speech, Normal affect - Studies Laboratory Data (last 24 hrs) 11/14/22 22:54: PT 13.1 H, INR 1.19 11/14/22 22:54: WBC 7.80, Hgb 15.9, Hct 48.3, Plt Count 145 L 11/14/22 22:54: Sodium 137, Potassium 3.8, BUN 4 L, Creatinine 0.57 L, Glucose 130 H, Magnesium 2.0 Microbiology Data (last 24 hrs): 11/14/22 22:37 Nasopharnyx Influenza Type A Antigen Screen - Final 11/14/22 22:37 Nasopharnyx Influenza Type B Antigen Screen - Final Assessment and Plan - Problems (Diagnosis) (1) Pneumonia Current Visit: Yes Status: Acute Qualifiers: Pneumonia type: due to unspecified organism Laterality: right Lung location: middle lobe of lung Qualified Code(s): J18.9 - Pneumonia, unspecified organism (2) Alcohol abuse Current Visit: Yes Status: Chronic (3) History of lung cancer Current Visit: Yes Status: Chronic (4) Sepsis Current Visit: Yes Status: Acute Qualifiers: Sepsis type: sepsis due to unspecified organism Sepsis acute organ dysfunction status: with acute organ dysfunction Severe sepsis acute organ dysfunction type: unspecified Severe sepsis shock status: without septic shock Qualified Code(s): A41.9 - Sepsis, unspecified organism; R65.20 - Severe sepsis without septic shock (5) COPD (chronic obstructive pulmonary disease) Current Visit: Yes Status: Chronic Qualifiers: COPD type: unspecified COPD Qualified Code(s): J44.9 - Chronic obstructive pulmonary disease, unspecified - Plan Patient is admitted for further management of severe sepsis secondary to pneumonia. Lactate 3.2. Received 1.5L bolus in ED. Repeat pending. Blood cultures obtained. Started on vanc and cefepime. Previous + blood cultures-staph- with resistance to levaquin. IV steroids, scheduled bronchodilator, and chest physiotherapy. Consult pulmonology. Monitor and optimize electrolytes. Patient is a heavy alcohol user. Banana bag and CIWA protocol in place. Cessation advised. Currently saturating appropriately on his home oxygen requirement. Resume home eliquis. Discharge Plan: Home Plan to discharge in: 24 Hours - Advance Directives Does patient have a Living Will: No Does patient have a Durable POA for Healthcare: No - Code Status/Comfort Care Code Status Assessed: Yes Code Status: Full Code Physician Review: Patient Assessed, Agree with Above Assessment and Plan Critical Care: No Time Spent Managing Pts Care (In Minutes): 50
[2022-11-15 01:10] LABS: Anisocytosis 1+; Blood Morphology Comment NOTED (NOT SEEN); Platelet Estimate ADEQ; White Blood Cell Scan OK (OK)
[2022-11-15] MEDS ORDERED: CEFEPIME 1 GM/VIAL ONE (01:19)
[2022-11-15] MEDS ORDERED: NA CHLORIDE 0.9% 0 ML ONE (01:19)
[2022-11-15] MEDS ORDERED: HYDROMORPHONE HCL 1 MG/ML INJ ONE (01:19)
[2022-11-15] MEDS ORDERED: ALBUTEROL 2.5 MG/3 ML NEB SOL ONE (01:19)
[2022-11-15] MEDS ORDERED: NA CHLORIDE 0.9% 100 ML ONE (01:19)
[2022-11-15] MEDS ORDERED: IPRATROPIUM BROM 0.5MG/2.5ML ONE (01:19)
[2022-11-15] MEDS ORDERED: ACETAMINOPHEN 500 MG TAB PO PRN (01:57)
[2022-11-15] MEDS ORDERED: VANCOMYCIN 1 GM in NA CHLORIDE 0.9% 250 ML IVPB SCH (01:57)
[2022-11-15] MEDS ORDERED: ALBUTEROL 2.5 MG/3 ML NEB SOL NEB PRN ×2 (01:57→13:00)
[2022-11-15] MEDS ORDERED: IPRATROPIUM BROM 0.5MG/2.5ML NEB PRN (01:57)
[2022-11-15] MEDS ORDERED: FOLIC ACID 1 MG, MULTIVITAMINS INJ 10 ML, THIAMINE HCL 100 MG in NA CHLORIDE 0.9% 1,000 ML IV SCH (01:57)
[2022-11-15] MEDS ORDERED: ONDANSETRON 4 MG/2 ML VIAL IV PRN (01:57)
[2022-11-15 02:17] VITALS: BMI 15.7
[2022-11-15] MEDS ORDERED: VANCOMYCIN 750 MG in NA CHLORIDE 0.9% 150 ML IVPB SCH (03:00)
[2022-11-15] MEDS ORDERED: VANCOMYCIN 1 GM/VIAL ONE (03:10)
[2022-11-15] MEDS ORDERED: NA CHLORIDE 0.9% 250 ML ONE (03:11)
[2022-11-15] MEDS ORDERED: NA CHLORIDE 0.9% 1,000 ML ONE ×2 (03:11→03:22)
[2022-11-15] MEDS ORDERED: THIAMINE 200 MG/2 ML INJ ONE ×2 (03:12→03:20)
[2022-11-15] MEDS ORDERED: MULTIVITAMINS 10 ML VIAL (INJ) IV ONE (03:20)
[2022-11-15] MEDS ORDERED: FOLIC ACID 5 MG/ML VIAL ONE (03:22)
[2022-11-15] MEDS ORDERED: NA CHLORIDE 0.9% 500 ML IV ONE (04:54)
[2022-11-15] MEDS ORDERED: FLUMAZENIL 0.1 MG/ML (5 mL VIAL) IV PRN (07:52)
[2022-11-15] MEDS ORDERED: LORAZEPAM 1 MG TABLET PO PRN (07:52)
--- NOTE | 2022-11-15 08:15 | P.CNS ---
Date of Consult: 11/15/22 Reason for Consult: COPD exacerbation Chief Complaint: Shortness of breath History of Present Illness: Mr. Moreno is 66 years of age been sick for the past week complaining of shortness of breath productive cough was treated with outpatient prednisone levofloxacin and appeared in the hospital and out of his Trelegy complains of feeling weak Allergies No Known Allergies Allergy (Verified 10/07/22 13:27) Home Medications: Buprenorphine/Nalox 0.5 film SL TID 08/29/22 Apixaban [Eliquis] 5 mg PO BID 30 Days #60 tablet 08/30/22 Midodrine HCl [Proamatine*] 5 mg PO BID 30 Days #30 tab 08/31/22 Pantoprazole [Protonix Tab] 40 mg PO BID #60 tab 10/07/22 Albuterol Sulfate [Albuterol Sulfate 0.083% Neb Soln] 2.5 mg IH Q6HP PRN 11/15/22 Memantine HCl [Namenda] 10 mg PO DAILY 11/15/22 Quetiapine [Seroquel] 75 mg PO BEDTIME 11/15/22 predniSONE [Deltasone] 40 mg PO DAILY 11/15/22 - Past Medical/Surgical History Diabetic: No -: Chronic pain -: Anorexia -: COPDon home O2 -: History of lung cancer, small cell lung cancer with mets -: Pulmonary Embolism -: Atrial fibrillation -: None Psychosocial/ Personal History: Patient is retired and lives at home with his . - Family History Sister Medical History: Cancer - Social History Smoking Status: Current every day smoker Alcohol use: Yes CD- Drugs: No Caffeine use: Yes Place of Residence: Home Review of Systems 10-point ROS is otherwise unremarkable General: Weakness Respiratory: Shortness of Breath Physical Examination Temp Pulse Resp BP Pulse Ox 98.3 F 83 18 109/67 98 11/15/22 04:00 11/15/22 04:00 11/15/22 04:00 11/15/22 04:00 11/15/22 04:00 General: Alert, In no apparent distress, Oriented x3 Respiratory: Clear to auscultation bilaterally, Diminished Cardiovascular: No edema, Regular rate/rhythm Gastrointestinal: Normal bowel sounds, Soft and benign Laboratory Data (last 24 hrs) 11/14/22 22:54: PT 13.1 H, INR 1.19 11/14/22 22:54: WBC 7.80, Hgb 15.9, Hct 48.3, Plt Count 145 L 11/14/22 22:54: Sodium 137, Potassium 3.8, BUN 4 L, Creatinine 0.57 L, Glucose 130 H, Magnesium 2.0 - Problems (1) COPD exacerbation Current Visit: No Status: Acute Plan: Patient is 66 years of age admitted with COPD exacerbation and been worse over the past week ran out of his Trelegy was apparently treated with levofloxacin and prednisone as an outpatient admitted to the hospital he does have cancer in the right lung doubt acute pneumonia probably has some radiation induced changes in the right upper lobe otherwise oxygenation vital signs all stable he does have oxygen at home resume his trilogy low-dose prednisone doubt sepsis his white count is normal he had a history of lung cancer continue with p.o. levofloxacin sputum cultures possible discharge
[2022-11-15] MEDS: LORAZEPAM 1 MG TABLET PO SCH ×3 (08:31→16:00)
[2022-11-15] MEDS ORDERED: MIDODRINE HCL 5 MG TABLET PO SCH (09:00)
[2022-11-15] MEDS ORDERED: NICOTINE 21 MG/PAT TD SCH (09:00)
[2022-11-15] MEDS ORDERED: predniSONE 20 MG TAB PO SCH (09:00)
[2022-11-15] MEDS ORDERED: APIXABAN 5 MG TABLET PO SCH (09:00)
[2022-11-15] MEDS ORDERED: levoFLOXacin 750 MG TAB PO SCH (09:00)
[2022-11-15] MEDS ORDERED: CEFEPIME 1 GM in NA CHLORIDE 0.9% 100 ML IV SCH (09:00)
[2022-11-15] MEDS ORDERED: PANTOPRAZOLE 40MG TABLET PO SCH (09:00)
[2022-11-15] MEDS ORDERED: BUPRENORPHINE SL SCH (14:00)
[2022-11-15] MEDS ORDERED: NALOXONE SL SCH (14:00)
[2022-11-15] MEDS ORDERED: ENSURE ENLIVE 237 ML CAN PO SCH ×2 (14:00→21:00)
--- NOTE | 2022-11-15 14:13 | RAD REPORT ---
EXAM DESCRIPTION: CT - Chest For Pe Angio - 11/15/2022 1:03 am CLINICAL HISTORY: The patient is 66 years old and is Male; SOB TECHNIQUE: Axial computed tomographic angiography images of the chest with intravenous contrast. T his CT exam was performed using one or more of the following dose reduction techniques: automated e xposure control, adjustment of the mA and/or kV according to patient size, and/or use of iterative re construction technique. MIP reconstructed images were created and reviewed. Oblique reformatted images were created and reviewed. DLP: 218 mGy*cm COMPARISON: Chest radiograph dated 11/14/2022 and CTA chest dated 10/07/2022. FINDINGS: PULMONARY ARTERIES: Continued limited evaluation of the right upper lobe subsegmental br anches. No central or proximal pulmonary emboli. AORTA: No acute findings. No thoracic aortic aneurysm. LUNGS: Lingular opacity concerning for pneumonia or scarring. PLEURAL SPACE: Advanced diffuse emphysema. Right upper lobe scarring with traction bronchiectasis a nd irregular pleural thickening. No significant effusion. No pneumothorax. HEART: Unremarkable. No cardiomegaly. No significant pericardial effusion. No evidence of RV dysfunction. MEDIASTINUM: Wall thickening of the visualized esophagus with air-fluid level. Small hiatal hernia. BONES/JOINTS: No acute fracture. No dislocation. SOFT TISSUES: Unremarkable. LYMPH NODES: Unremarkable. No enlarged lymph nodes. LIVER: Hepatic steatosis. IMPRESSION: 1. Lingular opacity concerning for pneumonia or scarring. Correlate for signs of infection. 2. Continued limited evaluation of the right upper lobe subsegmental branches. No central or proxim al pulmonary emboli. 3. Advanced diffuse chronic lung changes. 4. Wall thickening of the visualized esophagus with air-fluid level. Small hiatal hernia. 5. Hepatic steatosis. Electronically signed by: Russ Patten DO 11/15/2022 12:36 AM CDT Due to temporary technical issues with the PACS/Fluency reporting system, reports are being signed by the in house radiologists without review as a courtesy to insure prompt reporting. The interpreting radiologist is fully responsible for the content of the report.
--- NOTE | 2022-11-15 16:18 | P.DS ---
Admission Date: 11/15/22 Discharge Date: 11/15/22 Disposition: DC HOME/HOME HEALTH CARE Discharge Condition: FAIR Reason for Admission: Shortness of breath - Problems (1) Chronic respiratory failure with hypoxia Current Visit: Yes Status: Acute (2) Alcohol intoxication Current Visit: Yes Status: Acute (3) Atelectasis Current Visit: Yes Status: Acute (4) History of pulmonary embolism Current Visit: Yes Status: Acute (5) COPD (chronic obstructive pulmonary disease) Current Visit: Yes Status: Chronic Qualifiers: COPD type: unspecified COPD Qualified Code(s): J44.9 - Chronic obstructive pulmonary disease, unspecified (6) History of lung cancer Current Visit: Yes Status: Chronic Brief History of Present Illness: Mr. Moreno is a 66-year-old male with past medical history of lung cancer status post radiation & chemotherapy, COPD on home O2, chronic pain, PE on eliquis, atrial fibrillation, and alcoholism who presented to the emergency department via EMS with complaints of shortness of breath. EMS noted that patient was intoxicated and saturating 74% on RA, not wearing his home O2. He was worked up in the emergency department- labs significant for lactate 3.2, alcohol 295, covid/flu negative. Chest CTA showed " Lingular opacity concerning for pneumonia or scarring. Continued limited evaluation of the right upper lobe subsegmental branches. No central or proximal pulmonary emboli. Advanced diffuse chronic lung changes. Wall thickening of the visualized esophagus with air-fluid level. Small hiatal hernia. Hepatic steatosis." He was given IV fluids, nebs, and started on vancomyin and cefepime. Patient hospitalized for further management. Hospital Course: Patient had no complaint and was asymptomatic on the medical floor. His oxygen saturation was stable on his home oxygen. CT chest result reviewed with radiology and reported as chronic traction atelectasis. Findings unchanged from previous CT chest. Pneumonia is unlikely. Patient might have been short of breath because he was intoxicated and was not using his oxygen. Labs unremarkable, vitals are stable. Patient is discharged with oral Levaquin, thiamine and short course prednisone therapy. I recommended patient to use assistive device or wheelchair to reduce his risk of falls because he is on Eliquis and he continues to abuse alcohol. Vital Signs/Physical Exam: Temp Pulse Resp BP Pulse Ox 97.9 F 75 16 137/68 99 11/15/22 08:00 11/15/22 08:00 11/15/22 08:00 11/15/22 08:00 11/15/22 08:00 General: Alert, In no apparent distress, Cachectic HEENT: Mucous membr. moist/pink Neck: JVD not distended Respiratory: Clear to auscultation bilaterally, Normal air movement Cardiovascular: No edema, Regular rate/rhythm, Normal S1 S2 Gastrointestinal: Normal bowel sounds, Soft and benign, Non-distended, No tenderness Musculoskeletal: No swelling Integumentary: No cyanosis Neurological: Normal strength at 5/5 x4 extr Laboratory Data at Discharge: WBC 7.80 thou/uL (4.3-10.9) 11/14/22 22:54 Hgb 15.9 g/dL (13.6-17.9) 11/14/22 22:54 Hct 48.3 % (39.6-49.0) 11/14/22 22:54 Plt Count 145 thou/uL (152-406) L 11/14/22 22:54 PT 13.1 SECONDS (9.5-12.5) H 11/14/22 22:54 INR 1.19 11/14/22 22:54 Sodium 137 mEq/L (136-145) 11/14/22 22:54 Potassium 3.8 mEq/L (3.5-5.1) 11/14/22 22:54 BUN 4 mg/dL (7-18) L 11/14/22 22:54 Creatinine 0.57 mg/dL (0.70-1.30) L 11/14/22 22:54 Glucose 130 mg/dL (74-106) H 11/14/22 22:54 Magnesium 2.0 mg/dL (1.6-2.4) 11/14/22 22:54 Home Medications: Buprenorphine/Nalox 0.5 film SL TID 08/29/22 Apixaban [Eliquis] 5 mg PO BID 30 Days #60 tablet 08/30/22 Midodrine HCl [Proamatine*] 5 mg PO BID 30 Days #30 tab 08/31/22 Pantoprazole [Protonix Tab*] 40 mg PO BID #60 tab 10/07/22 Albuterol Sulfate [Albuterol Sulfate 0.083% Neb Soln] 2.5 mg IH Q6HP PRN 05/19/23 Ensure Enlive 237 ml PO BID #30 can 11/15/22 Memantine HCl [Namenda*] 10 mg PO DAILY 11/15/22 Quetiapine [Seroquel*] 75 mg PO BEDTIME 11/15/22 Thiamine HCl [Vitamin B-1*] 100 mg PO DAILY #30 tab 11/15/22 levoFLOXacin [Levaquin*] 750 mg PO DAILY #7 tab 11/15/22 predniSONE [Prednisone*] 40 mg PO DAILY #10 tab 11/15/22 New Medications: Ensure Enlive 237 ml PO BID #30 can levoFLOXacin [Levaquin*] 750 mg PO DAILY #7 tab predniSONE [Prednisone*] 40 mg PO DAILY #10 tab Thiamine HCl [Vitamin B-1*] 100 mg PO DAILY #30 tab Physician Discharge Instructions: You are on a blood thinner and it is very important not to fall. You can experience a life threatening bleed if you fall. Pleas avoid drinking alcohol and use assistive device-a walker to ambulate. Diet: AHA Activity: Fall precautions Time spent managing pt's care (in minutes): 38
[2022-11-15 16:21] VITALS: BP 134/78; TEMP 98
[2022-11-15 18:27] VITALS: O2SAT 95
[2022-11-15] MEDS ORDERED: JUVEN PACKET PO SCH (21:00)
[2022-11-16] MEDS ORDERED: FOLIC ACID 1 MG TABLET PO SCH (09:00)
[2022-11-16] MEDS ORDERED: THIAMINE HCL 100 MG TABLET PO SCH (09:00)
[2022-11-17] MEDS ORDERED: LORAZEPAM 1 MG TABLET PO SCH (08:00)
--- NOTE | 2022-11-17 17:37 | EKG ---
Test Date: 2022-11-14 Test Time: 21:52:26 Hypo Dipper: JOSÉ LUIS MEASUREMENT RESULTS: Intervals: Rate: 114 WI: 164 QRSD: 72 QT: 338 QTc: 465 [place]: P: 78 WI: 164 QRS: -45 T: 73 INTERPRETIVE STATEMENTS: Sinus tachycardia Left axis deviation Low voltage QRS Abnormal ECG Compared to ECG 11/06/2022 15:22:05 Accelerated junctional rhythm no longer present Electronically Signed On 11-17-22 17:35:06 CDT by Larry Aly
== END 2022-11-15 17:55 | disposition home health service (06) ==
LOC: ER 21:17 → 2ND 11-15 00:44
PROVIDERS: ADMIT Internal Medicine; ATTEND Internal Medicine
DX: J98.11 Atelectasis (principal); J96.11 Chronic respiratory failure with hypoxia; R65.20 Severe sepsis without septic shock; J44.1 Chronic obstructive pulmonary disease with (acute) exacerbation; C34.90 Malignant neoplasm of unspecified part of unspecified bronchus or lung; I48.91 Unspecified atrial fibrillation; K44.9 Diaphragmatic hernia without obstruction or gangrene; K76.0 Fatty (change of) liver, not elsewhere classified; F10.129 Alcohol abuse with intoxication, unspecified; F17.210 Nicotine dependence, cigarettes, uncomplicated; Z99.81 Dependence on supplemental oxygen; Z91.199 Patient's noncompliance with other medical treatment and regimen due to unspecified reason; Z86.711 Personal history of pulmonary embolism; Z20.822 Contact with and (suspected) exposure to COVID-19; Z79.01 Long term (current) use of anticoagulants
CPT/HCPCS: 96365; 96361; 93005; 87040; 85025; 80048; 36415; 83735; 85610; 83605 ×3; 84484; 83880; 87804 ×2; 71275; 71045; 94010; 94760 ×2; 96375; 99285; U0003; Q9967; J3411; J7512; J7613; J7644; J1170; J2405; J7050; J7040 ×2; J7030 ×2; J0692 ×2; G0480; G0378

== ENCOUNTER 2022-11-24 15:16 | Emergency (ER) | payer OTHER ==
--- OUTSIDE RECORDS SUMMARY | 2022-11-24 15:20 | XMS REPORT | Clinical Summary ---
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 Overview: Added automatically from request for rosa maria shah [id number] Family education about pain management 05/08/2021 History of radiation therapy 02/16/2021 Pressure-induced deep tissue damage of other site 02/2021 Overview: Site: Coccyx Sepsis 01/04/2021 Pulmonary embolism 11/17/2020 Stage 1 pressure ulcer of other site 11/14/2020 Overview: Left ear- stage 1-cage maker related from nasal cannula Tube feeding diet [...] 08/10/2020 Decompensated COPD with acute exacerbation 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 Small [...] Encounters Date Type Specialty Care Team Description 11/19/2022 Orders Only Thoracic Medicine Alex Amor, PharmD 09/13/2022 Follow-Up Thoracic Medicine Henrique Plasencia MD carcinoma, NOS of upper lobe, barbie g <Right> 09/13/2022 Ancillary Procedure Radiology Олег Clark ce ll Stella, carcinoma, NOS of CRACKLING PRESS OPERATOR,ACCNS upper lobe, barbie g <Right> 09/13/2022 Hospital Encounter Lab Henrique Plasencia MD carcinoma, NOS of upper lobe, barbie g <Right> 09/13/2022 Orders Only Thoracic Medicine Олег Clark cell Stella, carcinoma, NOS of CRACKLING PRESS OPERATOR,ACCNS upper lobe, barbie g <Right> (Primar y Dx) 09/13/2022 Travel 09/05/2022 Orders Only Thoracic Medicine Олег Clark cell Stella, carcinoma, NOS of CRACKLING PRESS OPERATOR,ACCNS upper lobe, barbie g <Right> (Primar y Dx) 08/29/2022 Telephone Thoracic Medicine Liz Akhtar Shortn ess of Breath RN (/) 06/19/2022 Orders Only Thoracic Medicine Henrique Plasencia MD 06/07/2022 Follow-Up Thoracic Medicine Henrique Plasencia MD carcinoma, NOS of upper lobe, barbie g <Right> 06/07/2022 Hospital Encounter Lab AmberОлег curtis benita l Stella, carcinoma, NOS of CRACKLING PRESS OPERATOR,ACCNS upper lobe, barbie g <Right> 06/07/2022 Ancillary Procedure Radiology Олег Clark ce ll Stella, carcinoma, NOS of CRACKLING PRESS OPERATOR,ACCNS upper lobe, barbie g <Right> 06/07/2022 Orders Only Thoracic Medicine Amber Stella, CRACKLING PRESS OPERATOR,ACCNS 06/07/2022 Orders Only Thoracic Medicine Henrique Plasencia MD 06/07/2022 Travel 05/09/2022 Telephone Thoracic Surgery Inez Sanon, RN 05/03/2022 Orders Only Thoracic Medicine Олег Clark cell Stella, carcinoma, NOS of CRACKLING PRESS OPERATOR,ACCNS upper lobe, barbie g <Right> (Primar y Dx) 05/03/2022 Telephone Thoracic Medicine Zulema Cedillo RN 12/28/2021 Nurse Triage Constantine Willis APRN,CHARGING MACHINE OPERATOR 12/28/2021 Documentation Thoracic Medicine Henrique Plasencia MD 12/20/2021 Telephone Lolita Gonzales RN 12/11/2021 Telephone Radiation Oncology Bibiana Pedersen, RN 12/05/2021 Telephone Thoracic Medicine Kasie Mehta RN 12/01/2021 Nurse Triage Erin Olivares RN after 11/24/2021 Immunizations Name Administration Dates Next Due Bamlanivimab 07/29/2020 () Influenza Split High Dose Preservative 03/29/2020 Free IM Pneumococcal Polysaccharide 03/24/2022 Zoster Recombinant 03/29/2020 remdesivir 08/22/2020, 08/22/2020, 08/21/2020, 08/20/2020, 08/19/2020, 08/18/2020, 08/03/2020, 08/02/2020, 08/02/2020, 08/01/2020, 07/31/2020, 07/30/2020 Surgical History Surgery Date Site/Laterality Comments OH EGD BALLOON DILATION 09/29/2020 Esophagus/N/A Procedur e: UPPER ESOPHAGUS <30 MM DIAM GASTROINTE STINAL ENDOSCOPY WITH BALLOON DILATION OF ESOPHAGUS; Surgeon: Owen real MD; Location: MAIN E NDOSCOPY; Service: GASTROE NTEROLOGY OH EGD PERCUTANEOUS 09/29/2020 Abdomen/N/A Procedure: U PPER PLACEMENT GASTROSTOMY TUBE GASTR OINTESTINAL ENDOSCOPY WITH DIRECTED PLACEME NT OF PERCUTANEOUS (PE G) GASTROSTOMY TUBE; Surgeon: Desiree Leonard MD; Location: MAIN E NDOSCOPY; Service: GASTROE NTEROLOGY OH BRNCHSC W/BRNCL ALVEOLAR 10/23/2020 N/A Proc edure: FLEXIBLE LAVAGE BRONCHOSCOPY WIT H BRONCHIAL ALVEOLAR LAVAGE; Surgeon: Krys Brewer MD; Lo cation: MAIN PULM PROC; Servi ce: PULMONARY OH PERQ REPLACEMENT GTUBE 05/21/2021 N/A Proced ure: REPLACEMENT OF NOT REQ REVJ GSTRST TRC GASTROST RANDEE TUBE, PERCUTANEOUS, INCLUDES REMOVAL , WHEN PERFORMED, WITHO UT IMAGING OR ENDOSCOPIC DENNIS NCE; NOT REQUIRING REVISI ON OF GASTROSTOMY TRAC T; Surgeon: Neha Tobin MD ; Location: MAIN ENDOSCOPY; Service: GASTROENTEROLOGY OH EGD TRANSORAL BIOPSY 10/19/2021 Esophagus/N/A Procedur e: [...] 163 cm (5' 4.17") 06/07/2022 7:11 AM PORCELAIN ENAMELER Body Mass Index 18.03 06/07/2022 7:11 AM PORCELAIN ENAMELER Plan of Treatment Date Type Specialty Care Team Description 12/13/2022 Appointment Lab Nina Clark APRN,ACCNS [address], [place] [address] (Wo rk) 12/13/2022 Appointment Radiology Nina Clark APRN,ACCNS [address], [place] [address] (Wo rk) 12/13/2022 Follow-Up Thoracic Medicine John Plasencia MD [address] [place], [place] [address] (Wo rk) Health Maintenance Due [...] 9:54 Small cell Results for this AM PORCELAIN ENAMELER carcinoma, NOS of procedure are in upper lobe, lung the results <Right> section. FRACTIONATED BILIRUBIN Routine 06/07/2022 9:54 Small cell Re sults for this AM PORCELAIN ENAMELER carcinoma, NOS of procedure are in upper lobe, lung the results <Right> section. TOTAL PROTEIN Routine 06/07/2022 9:54 Small cell Results for this AM PORCELAIN ENAMELER carcinoma, NOS of procedure are in upper lobe, lung the results <Right> section. ASPARTATE Routine 06/07/2022 9:54 Small cell Results for this AMINOTRANSFERASE AM PORCELAIN ENAMELER carcinoma, NOS of proced ure are in upper lobe, lung the results <Right> section. ALANINE AMINOTRANSFERASE Routine 06/07/2022 9:54 Small cell Results for this AM PORCELAIN ENAMELER carcinoma, NOS of procedure are in upper lobe, lung the results <Right> section. ALKALINE PHOSPHATASE Routine 06/07/2022 9:54 Small cell Resu lts for this AM PORCELAIN ENAMELER carcinoma, NOS of procedure are in upper lobe, lung the results <Right> section. ALBUMIN LEVEL Routine 06/07/2022 9:54 Small cell Results for this AM PORCELAIN ENAMELER carcinoma, NOS of procedure are in upper lobe, lung the results <Right> section. CALCIUM LEVEL TOTAL Routine 06/07/2022 9:54 Small cell Resul ts for this AM PORCELAIN ENAMELER carcinoma, NOS of procedure are in upper lobe, lung the results <Right> section. .GLOMERULAR FILTRATION Routine 06/07/2022 9:54 Small cell Re sults for this RATE AM PORCELAIN ENAMELER carcinoma, NOS of procedure are in upper lobe, lung the results <Right> section. SERUM CREATININE Routine 06/07/2022 9:54 Small cell Results for this AM PORCELAIN ENAMELER carcinoma, NOS of procedure are in upper lobe, lung the results <Right> section. BLOOD UREA NITROGEN Routine 06/07/2022 9:54 Small cell Resul ts for this AM PORCELAIN ENAMELER carcinoma, NOS of procedure are in upper lobe, lung the results <Right> section. GLUCOSE LEVEL Routine 06/07/2022 9:54 Small cell Results for this AM PORCELAIN ENAMELER carcinoma, NOS of procedure are in upper lobe, lung the results <Right> section. MANUAL DIFFERENTIAL Routine 06/07/2022 9:54 Small cell Resul ts for this AM PORCELAIN ENAMELER carcinoma, NOS of procedure are in upper lobe, lung the results <Right> section. Results CBC Routine 06/07/2022 9:54 Small cell Results for this AM PORCELAIN ENAMELER carcinoma, NOS of procedure are in upper lobe, lung the results <Right> section. URIC ACID Routine 06/07/2022 9:54 Small cell Results for this AM PORCELAIN ENAMELER carcinoma, NOS of procedure are in upper lobe, lung the results <Right> section. THYROID STIMULATING Routine 06/07/2022 9:54 Small cell Resul ts for this HORMONE AM PORCELAIN ENAMELER carcinoma, NOS of procedure are in upper lobe, lung the results <Right> section. TOTAL T3 Routine 06/07/2022 9:54 Small cell Results for this AM PORCELAIN ENAMELER carcinoma, NOS of procedure are in upper lobe, lung the results <Right> section. MAGNESIUM LEVEL Routine 06/07/2022 9:54 Small cell Results f or this AM PORCELAIN ENAMELER carcinoma, NOS of procedure are in upper lobe, lung the results <Right> section. FREE THYROXINE Routine 06/07/2022 9:54 Small cell Results fo r this AM PORCELAIN ENAMELER carcinoma, NOS of procedure are in upper lobe, lung the results <Right> section. COMPREHENSIVE METABOLIC Routine 06/07/2022 9:54 Small cell PANEL AM PORCELAIN ENAMELER carcinoma, NOS of upper lobe, lung <Right> COMPLETE BLOOD COUNT W/ Routine 06/07/2022 9:54 Small cell DIFFERENTIAL AM PORCELAIN ENAMELER carcinoma, NOS of upper lobe, lung <Right> PETCT SUBSEQUENT Routine 06/07/2022 9:27 Small cell Results for this TREATMENT STRATEGY AM PORCELAIN ENAMELER carcinoma, NOS of proc edure are in upper lobe, lung the results <Right> section. after 11/24/[address] Chest with Contrast (09/13/2022 8:57 [...] 5. Multivessel coronary artery disease. Stella Clark CRACKLING PRESS OPERATOR,ACCNS IMG CT ORDERABLES POC Creatinine (09/13/2022 8:38 [...] Clean Dev Yes POC TELCOR Performing Lab [facility] POC TELCO R Comment: [facility], [address] [place] [address], [place] [address]; Lab Direct or: Karma Arciniega MD; Waived Point of Care Testing - Rosina Parikh MD Specimen Anatomical Collection Method Collection Time Receive d Time (Source) Location / / Volume Laterality Blood 09/13/2022 8:38 AM 3 8:38 CDT AM CDT TAMMI Mancia APRN POCT ORDERABLES - DEVICE Performing Organization Address City/[facility]/ZIP Code Phon e Number POC TELCOR Unless otherwise noted, [place] [address] lab tests performed by: Division of Pathology and Laboratory Medicine [address] [place] [address] (ABNORMAL) .Serum Creatinine (09/13/2022 8:10 AM CDT)Only the most recent of2 resultswithin the time period is included. athologist Signature Creatinine 0.62 (L) 0.67 - 1.17 [facility] mg/dL Comment: Testing Performed at [facility], [address], [address], [place] [address] Specimen Anatomical Collection Method Collection Time Receive d Time (Source) Location / / Volume Laterality Blood 09/13/2022 8:10 AM 3 8:36 CDT AM CDT Narrative [facility] - 09/13/2022 9:14 AM CDT Schedule same day tests/clinic appt Henrique Plasencia MD LAB BLOOD ORDERABLES Performing Organization Address City/[facility]/ZIP Code Phon e Number [facility] [address] [place] [address]. [place] [address] [address] (ABNORMAL) .CBC (09/13/2022 8:10 AM CDT)Only the most recent of2 resultswithin the time period is included. athologist Signature WBC 6.9 4.0 - 11.0 [facility] K/uL RBC 4.71 4.50 - 6.00 [facility] M/uL Hgb 14.5 14.0 - 18.0 [facility] gm/dL Comment: As part of CBC or as an individ ual orderable testing performed at [facility], [address] , [address], [place] [address] Hct 45.2 40.0 - 54.0 % [facility] Comment: As part of CBC or as an individ ual orderable testing performed at [facility], [address] [place] [address] , [address], [place] [address] MCV 96 82 - 98 fL [facility] MCH 30.8 27.0 - 31.0 pg [facility] MCHC 32.1 31.0 - 36.0 gm/dL [facility] RDW-SD 62.4 (H) 35.1 - 46.3 fL [facility] RDW-CV 17.9 (H) 12.0 - 15.5 % [facility] Platelet count 310 140 - 440 K/uL [facility] Comment: As part of CBC or as an individ ual orderable testing performed at [facility], [address] , [address], [place] [address] MPV 9.6 4.0 - 10.4 fL [facility] INRBC 0.0 <=0.0 % [facility] Comment: The INRBC (instrument NRBC) value reflec ts the enumeration of nucleated red blood cells contained i n a 200uL sample of whole blood analyzed by the instrumen t. This value may differ from the NRBC value reported in a manual differential, which is based on a 100 cell differentia l. As part of CBC testing performed at [facility] [address], [address], [place] [address] Specimen Anatomical Collection Method Collection Time Receive d Time (Source) Location / / Volume Laterality Blood 09/13/2022 8:10 AM 3 8:28 CDT AM CDT Narrative [facility] - 09/13/2022 8:32 AM CDT Schedule same day tests/clinic appt Henrique Plasencia MD LAB BLOOD ORDERABLES Performing Organization Address City/State/ZIP Code Phon e Number [address] [place] [address] [address] Glomerular Filtration Rate (09/13/2022 8:10 AM CDT)Only the most recent of2 resultswithin the time period is included. athologist Signature eGFR 105 >=60 [facility] mL/min/1.73 sq. m Comment: The eGFRcr is [...] fulfill criteria for CKD. Testing Performed at [facility] Neurology Technician [facility], [address] [place] [address], [address], [place] [address] Specimen Anatomical Collection Method Collection Time Receive d Time (Source) Location / / Volume Laterality Blood 09/13/2022 8:10 AM 3 8:36 CDT AM CDT Narrative [facility] - 09/13/2022 9:14 AM CDT Schedule same day tests/clinic appt Henrique Plasencia MD LAB BLOOD ORDERABLES Performing Organization Address City/State/ZIP Code Phon e Number [address] [place] [address] [address] Fractionated Bilirubin (09/13/2022 8:10 AM CDT)Only the most recent of2 results within the time period is included. athologist Signature Bili Total <0.3 <=1.2 mg/dL [facility] Comment: Direct and indirect bilirubin will not b e reported when Total bilirubin result is <0.3 mg/dL Indocyanine Green (ICG) may cause falsel y elevated bilirubin results. Total and direct bilirubin must not be measured from samples containing indocyanine green. False elevation of total bilirubin can b e seen in patients with IgG concentrations above 28 g/L. Testing Performed at [facility], [address] [place] [address], [address], [place] [address] Specimen Anatomical Collection Method Collection Time Receive d Time (Source) Location / / Volume Laterality Blood 09/13/2022 8:10 AM 8:36 CDT AM CDT Narrative [facility] - 09/13/2022 9:14 AM CDT Schedule same day tests/clinic appt Henrique Plasencia MD LAB BLOOD ORDERABLES Performing Organization Address City/State/ZIP Code Phon e Number [address] [place] [address] [address] (ABNORMAL) Differential (09/13/2022 8:10 AM CDT)Only the most recent of2 results within the time period is included. athologist Signature Neutrophil % 48.8 42.0 - 66.0 [facility] % Comment: As part of Differential perform ed at [facility], [address] [place] [address], [address], [place] [address] 0 Lymphocyte % 34.8 24.0 - 44.0 % [facility] Monocyte % 9.1 (H) 2.0 - 7.0 % [facility] Eosinophil % 6.6 (H) 1.0 - 4.0 % [facility] Basophil % 0.7 0.0 - 1.0 % [facility] IGRE % 0.0 0.0 - 0.4 % [facility] Comment: IGRE % count includes Metamyelocytes, My elocytes, and Promyelocytes. As part of Differential performed at [facility], [address] [place] [address], [address], [place] [id number] Neutrophil Abs 3.37 1.70 - 7.30 K/uL [facility] Lymphocyte Abs 2.41 1.00 - 4.80 K/uL [facility] Monocyte Abs 0.63 0.08 - 0.70 K/uL [facility] Eosinophil Abs 0.46 (H) 0.04 - 0.40 K/uL [facility] Basophil Abs 0.05 0.00 - 0.10 K/uL [facility] IG Abs 0.00 0.00 - 0.04 K/uL [facility] Specimen Anatomical Collection Method Collection Time Receive d Time (Source) Location / / Volume Laterality Blood 09/13/2022 8:10 AM 3 8:28 CDT AM CDT Narrative [facility] - 09/13/2022 8:32 AM CDT Schedule same day tests/clinic appt Henrique Plasencia MD LAB BLOOD ORDERABLES Performing Organization Address City/[facility]/[address] [place] [address] [address] BUN (09/13/2022 8:10 AM CDT)Only the most recent of2 resultswithin the time period is included. P athologist Signature BUN 10 6 - 23 mg/dL [facility] Comment: Testing Performed at [facility] Lab [facility], [address] [place] [address], [address], [place] [id number] Specimen Anatomical Collection Method Collection Time Receive d Time (Source) Location / / Volume Laterality Blood 09/13/2022 8:10 AM 3 8:36 CDT AM CDT Narrative [facility] - 09/13/2022 9:14 AM CDT Schedule same day tests/clinic appt Henrique Plasencia MD LAB BLOOD ORDERABLES Performing Organization Address City/[facility] Phon e Number [address] [place] [address] [address] ALT (09/13/2022 8:10 AM CDT)Only the most recent of2 resultswithin the time period is included. P athologist Signature ALT 7 <=41 U/L [facility] Comment: Testing Performed at [facility], [address] [place] [address], [address], [place] [id number] Specimen Anatomical Collection Method Collection Time Receive d Time (Source) Location / / Volume Laterality Blood 09/13/2022 8:10 AM 3 8:36 CDT AM CDT Narrative [facility] - 09/13/2022 9:14 AM CDT Schedule same day tests/clinic appt Henrique Plasencia MD LAB BLOOD ORDERABLES Performing Organization Address City/[facility]/ZIP Code Phon e Number [facility] [address] [place] [address] [address] Aspartate Aminotransferase (09/13/2022 8:10 AM CDT)Only the most recent of2 resultswithin the time period is included. P athologist Signature AST 12 <=40 U/L [facility] Comment: Testing Performed at [facility], [address], [place] [address] Specimen Anatomical Collection Method Collection Time Receive d Time (Source) Location / / Volume Laterality Blood 09/13/2022 8:10 AM 3 8:36 CDT AM CDT [facility] - 09/13/2022 9:14 AM CDT Schedule same day tests/clinic appt Henrique Plasencia MD LAB BLOOD ORDERABLES Performing Organization Address [facility] Phon e Number [facility] [address] [place] [address] [address] Total Protein (09/13/2022 8:10 AM CDT)Only the most recent of2 resultswithin the time period is included. athologist Signature Total Protein 7.2 6.4 - 8.3 [facility] g/dL Comment: Testing Performed at [facility] Lab [facility], [address], [address], [place] [address] Specimen Anatomical Collection Method Collection Time Receive d Time (Source) Location / / Volume Laterality Blood 09/13/2022 8:10 AM 3 8:36 CDT AM CDT [facility] - 09/13/2022 9:14 AM CDT Schedule same day tests/clinic appt Henrique Plasencia MD LAB BLOOD ORDERABLES Performing Organization Address City/[facility]/ZIP Code Phon e Number [facility] [address] [place] [address] [address] Alkaline Phosphatase (09/13/2022 8:10 AM CDT)Only the most recent of2 results within the time period is included. athologist Signature Alk Phos 94 40 - 129 U/L [facility] Comment: Testing Performed at [facility], [address] [place] [address], [address], [place] [address] Specimen Anatomical Collection Method Collection Time Receive d Time (Source) Location / / Volume Laterality Blood 09/13/2022 8:10 AM 3 8:36 CDT AM CDT Narrative [facility] - 09/13/2022 9:14 AM CDT Schedule same day tests/clinic appt Henrique Plasencia MD LAB BLOOD ORDERABLES Performing Organization Address City/[facility] e Number [address] [place] [address] [address] (ABNORMAL) Glucose Level (09/13/2022 8:10 AM CDT)Only the most recent of2 resultswithin the time period is included. athologist Signature Glucose Level 102 (H) 70 - 99 [facility] mg/dL Comment: Effective 01/24/16, the glucose reference intervals have been updated based on [place] [employer] guidelines (Standards of Medical Care in Diabetes 2016. Diabetes Care 2016; 39: S13-S22). Fasting blood glucose: Normal: 70-99 mg/dL Impaired fasting glucose (increased risk for diabetes or pre-diabetes): 100- 125 mg/dL Diabetes mellitus: >/=126 mg/dL Random blood glucose: Normal: 70-199 mg/dL Note: Random glucose >100 mg/dL is assoc iated with increased risk for diabetes Testing Performed at [facility] Techn[facility], [address] [place] [address], [address], [place] [address] Specimen Anatomical Collection Method Collection Time Receive d Time (Source) Location / / Volume Laterality Blood 09/13/2022 8:10 AM 3 8:36 CDT AM CDT Narrative [facility] - 09/13/2022 9:13 AM CDT Schedule same day tests/clinic appt Henrique Plasencia MD LAB BLOOD ORDERABLES Performing Organization Address City/State/[facility] e Number [address] [place] [address] [address] Calcium Level (09/13/2022 8:10 AM CDT)Only the most recent of2 resultswithin the time period is included. P athologist Signature Calcium Lvl 9.4 8.4 - 10.2 [facility] mg/dL Comment: Testing Performed at [facility], [address], [address], [place] [address] Specimen Anatomical Collection Method Collection Time Receive d Time (Source) Location / / Volume Laterality Blood 09/13/2022 8:10 AM 3 8:36 CDT AM CDT Narrative [facility] - 09/13/2022 9:14 AM CDT Schedule same day tests/clinic appt Henrique Plasencia MD LAB BLOOD ORDERABLES Performing Organization Address City/[facility]/ZIP [facility] Phon e Number [facility] [address] [place] [address] [address] Albumin Level (09/13/2022 8:10 AM CDT)Only the most recent of2 resultswithin the time period is included. athologist Signature Albumin Lvl 4.0 3.5 - 5.2 [facility] gm/dL Comment: Testing Performed at [facility], [address], [address], [place] [address] Specimen Anatomical Collection Method Collection Time Receive d Time (Source) Location / / Volume Laterality Blood 09/13/2022 8:10 AM 3 8:36 CDT AM CDT Narrative [facility] - 09/13/2022 9:14 AM CDT Schedule same day tests/clinic appt Henrique Plasencia MD LAB BLOOD ORDERABLES Performing Organization Address City/[facility]/ZIP [facility] Phon e Number [facility] [address] [place] [address] [address] Electrolyte Panel (09/13/2022 8:10 AM CDT)Only the most recent of2 resultswithin the time period is included. athologist Signature Sodium Lvl 141 136 - 145 [facility] mEq/L Comment: Testing Performed at [facility], [address], [address], [place] [address] Potassium Lvl 3.9 3.5 - 5.1 mEq/L [facility] Comment: Testing Performed at [facility], [address], [address], [place] [address] Chloride 105 98 - 107 mEq/L [facility] Comment: Testing Performed at [facility], [address], [address], [place] [address] CO2 25 22 - 29 mEq/L [facility] Comment: Testing Performed at [facility], [address], [address], [place] [address] Anion Gap 11 4 - 14 mEq/L [facility] Comment: Testing Performed at [facility], [address], [address], [place] [address] Specimen Anatomical Collection Method Collection Time Receive d Time (Source) Location / / Volume Laterality Blood 09/13/2022 8:10 AM 3 8:36 CDT AM CDT Narrative [facility] - 09/13/2022 9:14 AM CDT Schedule same day tests/clinic appt Henrique Plasencia MD LAB BLOOD ORDERABLES Performing Organization Address City/State/ZIP Code Phon e Number [facility] [address] [place] [address] [address] Uric Acid (06/07/2022 9:54 AM PORCELAIN ENAMELER) athologist Signature Uric Acid 5.3 3.4 - 7.0 [facility] mg/dL Comment: Testing Performed at [facility], [address], [address], [place] [address] Specimen Anatomical Collection Method Collection Time Receive d Time (Source) Location / / Volume Laterality Blood 06/07/2022 9:54 AM 2 [facility] ENAM[facility] 10:05 AM [facility]EL[facility] ENAMELER TAMMI Mancia APRN LAB BLOOD ORDERABLES Performing Organization Address City/State/ZIP Code Phon e Number [facility] [address] [place] [address] [address] T3 (06/07/2022 9:54 AM PORCELAIN ENAMELER) P athologist Signature T3 Total 153 80 - 200 [facility] ng/dL [facility] Specimen Anatomical Collection Method Collection Time Receive d Time (Source) Location / / Volume Laterality Blood 06/07/2022 9:54 AM 2 [facility] ENAMELER 10:53 AM [place]EL[place] ENAMELER Stella Clark APRNACCNS LAB BLOOD ORDERABLES Performing Organization Address City/[facility]/ZIP Code Phon e Number [facility] CANCER Unless otherwise noted, [place] [address] CENTER all lab tests performed by: Division of Pathology and Laboratory Medicine [address] [place] [address] TSH (06/07/2022 9:54 AM PORCELAIN ENAMELER) athologist [facility] TSH 0.65 0.27 - 4.20 [facility] mcunit/mL Comment: Note: New Methodology and Reference Ra nge change effective 10/16/2017 at 1400 Testing Performed at [facility] Lab Neurology Technician [facility], [address], [address], [place] [address] Specimen Anatomical Collection Method Collection Time Receive d Time (Source) Location / / Volume Laterality Blood 06/07/2022 9:54 AM 2 [place] ENAMELER 10:05 AM [place]EL[place] ENAMELER Stella Clark APRNACCNS LAB BLOOD ORDERABLES Performing Organization Address City/[facility]/ZIP Code Phon e Number [facility] [address] [place] [address] [address] Free T4 (06/07/2022 9:54 AM PORCELAIN ENAMELER) athologist [facility] T4 Free 1.01 0.93 - 1.70 [facility] ng/dL Comment: Testing Performed at [facility], [address], [address], [place] [address] Specimen Anatomical Collection Method Collection Time Receive d Time (Source) Location / / Volume Laterality Blood 06/07/2022 9:54 AM 2 [place] ENAMELER 10:05 AM P[place]CELAIN ENAMELER Stella Clark APRNACCNS LAB BLOOD ORDERABLES Performing Organization Address City/State/ZIP Code Phon e Number [facility] [address] [place] [address] [address] Magnesium Level (06/07/2022 9:54 AM PORCELAIN ENAMELER) P athologist Signature Magnesium 1.9 1.6 - 2.6 [facility] mg/dL Comment: Testing Performed at [facility], [address] [address], [address], [place] [address] Specimen Anatomical Collection Method Collection Time Receive d Time (Source) Location / / Volume Laterality Blood 06/07/2022 9:54 AM P[employer]CELAIN ENAMELER 10:05 AM P[place]CELAIN ENAMELER Stella Clark APRNACCNS LAB BLOOD ORDERABLES Performing Organization Address City/State/ZIP Code Phon e Number [facility] [address] [place] [address] [address] PETCT Subsequent Treatment Strategy (06/07/2022 9:27 AM PORCELAIN ENAMELER) Anatomical Region Laterality Modality Whole Body Positron Emission To mography (PET) Specimen (Source) Anatomical Collection Method Collection Time Re ceived Time Location / / Volume Laterality 06/07/2022 11:01 AM P[employer]CELAIN ENAMELER Impressions 06/07/2022 11:46 AM PORCELAIN ENAMELER 1. No convincing evidence of FDG-avid small cell lung cancer. 2. Bilateral irregular lung opacities wi th some regions demonstrating associated activity show some change in anatomic configuration when compared to 10/15/2021 CT and are compatible with a chronic waxing/waning infectious or inflammatory process. Narrative 06/07/2022 11:46 AM PORCELAIN ENAMELER FULL RESULT: Examination: FDG PET/CT, 06/07/2022 9:27 [...] waxing/waning infectious or inflammatory process. Stella Clark SHANNEN,TAMMI IMG PETCT ORDERABLES after 11/24/2021 Insurance Payer Benefit Plan / Subscriber ID Effective Phone Address T ype Group Dates [facility] [id number] 2020-Prese [address] Medicare MEDICARE MEDICARE nt [place], [place] ADVANTAGE ADVANTAGE [id number] Guarantor Name Account Type Relation to Date of Phone Billing Patient Address Chato Moreno Personal/Family Self 1955 [phone] (Work) [place] [address] Chato Moreno Personal/Family Self 1955 [id number] [place] [address] [address] [place] [address] Advance Directives Code Status Date Activated Date Inactivated Comments Full Code 10/15/2021 2:23 PM 10/24/2021 8:32 PM Code Status Date Activated Date Inactivated Comments Full Code 09/03/2021 10:00 PM 09/07/2021 5:51 PM Full Code 02/16/2021 11:33 PM 03/02/2021 8:45 PM Full Code 01/22/2021 1:08 AM 01/30/2021 8:41 PM Full Code 01/04/2021 3:56 PM 01/19/2021 6:53 PM Care Teams Confidential Investigator Relationship Specialty Start Date End Date Carl Jones MD PCP - External Primary Family Practice 02/14/20 [facility]4 Julio Cesar Bazan Care Provider [address] [place] [phone] Henrique Plasencia MD PCP - General Thoracic Medicine 04/21/20 [facility] [place] [address] Kang Piedra MD PCP - External Follow Up Dermatology 06/12/20 [address] [place] [address] Mary Beth Hinson, Speech Language Speech Pathology 04/16/21 [facility] TRANSIT Pathologist [facility] [place] [address]
--- OUTSIDE RECORDS SUMMARY | 2022-11-24 15:33 | XMS REPORT | Continuity of Care Document ---
:1955 Author Organization [facility] t Address [address] [place] [address] Care Team Providers Name Role Phone MARIA FERNANDA WASHINGTON Primary Care Physician Unavailable SYSTEM, PROVIDER NOT IN Attending Clinician Unavailable Luis Angel CARDENAS, Maria Fernanda Fu Attending Clinician Stella Goodrich Attending Clinician Giovana JARAMILLO, Liz Flores Attending Clinician Unavailable Fab JARAMILLO, Inez Stewart Attending Clinician Unavailable Mamadou JARAMILLO, Zulema Ramírez Attending Clinician Unavailable Lazaro MANUAL QA TESTER, Constantine Attending Clinician Ger JARAMILLO, Lolita Sommer [...] Clinician Alexus CARDENAS, Boni Carr Attending Clinician [phone] Jackson JARAMILLO, Arcadio Attending Clinician Unavailable BONI OBRIEN Attending Clinician Unavailable Aisha CARDENAS, Edwige Orozco Attending Clinician Zane CARDENAS, Jenise Attending Clinician Dhiraj Fry CRNA Attending Clinician Jacquelyn CARDENAS, Shena Gudino Attending Clinician Unavailable TOD GLASS V. Attending Clinician Unavailable MARIA FERNANDA WASHINGTON V. Attending Clinician Unavailable JUDY, ED Attending Clinician Unavailable Shantal Patiño MD, Deshawn Attending Clinician [phone] Dean JARAMILLO, Stella Stewart Attending Clinician Unavailable Price JARAMILLO, Ileana Ann Attending Clinician Unavailable Aisha CARDENAS, Mehrdad Attending Clinician Gurpreet Estes MD Attending Clinician SOFI HART Attending Clinician Unavailable Michael Lopez RN Attending Clinician Unavailable Lela Sanon APN Attending Clinician Tadeo CARDENAS, Herrera Attending Clinician Jacki Campbell Attending Clinician Gucci MANUAL QA TESTER, Sarah Ybarra Attending Clinician Tejinder CARDENAS, Raymundo Attending Clinician Miguel Ángel ROUSSEAU, Nicole Hirsch Attending Clinician bAdirizak Fenton MD Attending Clinician Jarrett JARAMILLO, Génesis Ann Attending Clinician Unavailable Anais JARAMILLO, Génesis Trevino Attending Clinician Unavailable Andrea ROUSSEAU, Jackie Attending Clinician Yudith Rivas RN Attending Clinician Unavailable Claude Tobin MD Attending Clinician Junek POINTING MACHINE OPERATOR, Elmira N Attending Clinician Tegan CARDENAS, Giovanna Tanner Attending Clinician Sravan [facility]-QUALITY CONTROLLER, Mary Beth Ann Attending Clinician Unavailable Rah [...] Unavailable MEHRDAD ROD Admitting Clinician Unavailable CLAUDE TOBNI Admitting Clinician Unavailable TOD GLASS V. 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 Center Added automatic ally from request for surgery [id number] Family Family Disease Active 2020-06 Univers education education 1-09 [place] of about pain about [place] management management 00 MD Fuentes zimmerman [facility] Paige History of History of Disease Recurre Univers radiation radiation nce 8-20 ity of therapy therapy 00:00: [place] 00 MD Fuentes zimmerman [facility] Pressure-i Pressure-i Disease Active Overview : Univers nduced nduced 7-09 Formattin ity of deep deep 00:00: g of this [place] tissue tissue 00 note damage of damage of might be An derso other site other site different n from the Cancer original. Center Site: Coccyx Sepsis Sepsis Disease Active Univers 7-08 ity of 00:00: [place] 00 MD Fuentes zimmerman [facility] Pulmonary Pulmonary Disease Active Uni vers embolism embolism 5-21 ity of 00:00: [place] 00 MD Fuentes zimmerman [facility] Stage 1 Stage 1 Disease Active Overview: Univ ers pressure pressure 5-18 Formattin ity of ulcer of ulcer of 00:00: g of this [place] as other site other site 00 note might be Anderso different n from the Cancer original. 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 Sequelae Sequelae Disease Active Unive rs of of 4-11 ity of hyperalime hyperalime [place] ntation ntation 00 MD Dill [facility] Adverse Adverse Disease Active Univers effect of effect of 3-23 ity of glucocorti glucocorti 00:[place] coids and coids and synthetic synthetic Prince rso analogues analogues [facility] Current Current Disease Active Univers use of use of 3-23 ity of insulin insulin 00:00: [place] 00 MD Dill [facility] Anxiety Anxiety Disease Active Univers disorder disorder 3-17 ity of due to a due to a 00:00: [place] general general 00 medical medical Andjaniceo condition condition [facility] Disorder Disorder Disease Active Unive rs of fluid of fluid 3-08 ity of AND/OR AND/OR 00:00: [place] electrolyt electrolyt 00 [facility] Sinus Sinus Disease Active Univers tachycardi tachycardi 3-08 it y of a a 00:00: [place] 00 MD Fuentes zimmerman [facility] Pleuritic Pleuritic Disease Active Uni vers pain pain 2-26 ity of 00:00: [place] 00 MD Fuentes zimmerman [facility] Anemia of Anemia of Disease Recurre Un yakov chronic chronic nce 2-22 ity of disease disease 00:00: [place] 00 MD Fuentes zimmerman [facility] Acute and Acute and Disease Active Uni vers chronic chronic 2-22 ity of respirator [place] y failure y failure 00 with with Fuentes hypoxia hypoxia 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 An derso on on n [facility] Center Dyspnea Dyspnea Disease Active Univers 2-11 ity of 00:00: [place] 00 MD Fuentes zimmerman [facility] Decompensa Decompensa Disease Active U nivers lakhwinder COPD lakhwinder COPD 1-31 ity of with acute with acute 00:[place] exacerbati exacerbati 00 on on Fuentes zimmerman [facility] 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 Recurre Un yakov current current nce 1-31 ity of use of use of 00:00: [place] opiate opiate 00 analgesic analgesic Prince [facility] Small cell Small cell Disease Recurre [...] Univers emphysema emphysema ity of [place] zimmerman [facility] Adjustment Adjustment Disease Recurre Univers disorder disorder nce ity of with mixed with mixed [place] anxiety anxiety and franco Dill depressed depressed n mood mood [facility] Center Chronic Chronic Disease Active Univers pain due pain due ity of to to [place] malignant malignant neoplastic neoplastic An derso disease disease n Cancer Center Slow Slow Disease Active Univers transit transit ity of const[place]ati [place] on on MD Fuentes zimmerman [facility] Other Other Disease Active Univers psychologi psychologi it y of tracy or [facility] or [place] physical physical stress, stress, Anderso not not n elsewhere elsewhere Canc er classified classified Ce nter Personal Personal Disease Recurre Univ ers history of history of nce it y of COVID-19 COVID-19 [place] zimmerman [facility] Acute Acute Disease Resolve 2021-09-04 2021-09-04 Univers kidney kidney d 8-20 00:00:00 14:37:22 ity of injury due injury due [place] to to 00 hypovolemi hypovolemi An derso a a n [facility] Hypovolemi Hypovolemi Disease Resolve 2021-09-04 2021-09-04 Univers a a d 8 00:00:00 14:36:33 ity of 00:00: [place] 00 MD Fuentes zimmerman [facility] High High Disease Resolve 2021-09-04 2021-09-04 Univers troponin I troponin I d 8 00:00:00 14:35:35 ity of level level 00:00: [place] [facility] Hyperkalem Hyperkalem Disease Resolve 2021-09-04 2021-09-04 Univers ia ia d 02-16 00:00:00 14:36:15 ity of 00:00: [place] 00 MD Dill [facility] Aspergillo Aspergillo Disease Resolve 2021-09-04 2021-09-04 Univers sis with sis with d 10-25 00:00:00 14:36:44 it y of pneumonia pneumonia [place] 00 [facility] Multiple Multiple Disease Resolve 2021-09-04 2021-09-04 Univers lung lung d 10-20 00:00:00 14:36:17 [place]y of abscesses abscesses [place] [facility] Drug Drug Disease Resolve 2021-09-04 2021-09-04 Univers induced induced d 09-19 00:00:00 14:37:13 ity of diabetes diabetes 00:00: [place] mellitus mellitus 00 with with Fuentes hyperglyce hyperglyce n [facility] retirement 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 Resolve 2021-09-04 2021-09-04 Univers current current d 3 00:00:00 14:37:15 ity of use of use of 00:00: [place] systemic systemic 00 [facility] Pneumocyst Pneumocyst Disease Resolve 2021-09-04 2021-09-04 Univers osis osis d 09-04 00:00:00 14:35:43 ity of pneumonia pneumonia 00:00: [facility] Cytomegalo Cytomegalo Disease Resolve 2021-09-04 2021-09-04 Univers virus virus d 3-08 00:00:00 14:35:47 ity of infection infection 00:00: s 00 MD Fuentes zimmerman [facility] Diarrhea Diarrhea Disease Resolve 2021-09-04 2021-09-04 Univers d 2-22 00:00:00 14:37:13 ity of 00:00: 00 MD Villegas erasmo [facility] Aspiration Aspiration Disease Resolve 2021-09-04 2021-09-04 Univers into lower into lower d 2-11 00:00:00 14:37:24 [place]y of respirator respirator [place] y tract y tract 00 MD Villegas erasmo [facility] COVID-19 COVID-19 Disease Resolve 2021-09-04 2021-09-04 Univers d 1-30 00:00:00 14:35:39 ity of 00:00: 00 MD Fuentes zimmerman [facility] Amaurosis Amaurosis Disease Resolve 2021-09-04 2021-09-04 Univers fugax fugax d 4-29 00:00:00 14:36:43 ity of 00:00: 00 MD Fuentes zimmerman [facility] Cancer-rel Cancer-rel Disease Resolve 2021-09-04 2021-09-04 Univers ated ated d 00:00:00 14:37:19 ity of fatigue fatigue Willis zimmerman [facility] Mixed Mixed Disease Resolve 2021-09-04 2021-09-04 Univers infectious infectious d 00:00:00 14:36:17 ity of disease disease Willis zimmerman [facility] Tomography Tomography Disease Resolve 2021-09-04 2021-09-04 Univers - chest - chest d 00:00:00 14:36:37 ity of abnormal abnormal Willis zimmerman [facility] Allergies, Adverse Reactions, Alerts Allergy Allergy Status Severity Reaction(s) Onset Inactive Treating Comm ents Source Name Type Date Date Clinician No Known DA Active U 2019- [facility] Allergie 0-30 [facility] 00:00: d 00 [facility] No Known DA Active U 2019- [facility] Allergie 0-30 [facility] codeine DA Active [place] 2019-0 [facility] 2-13 [facility] 00:[facility]: d 00 [facility] codeine DA Active [place] rash 2019- [facility] 2-13 [facility] 00:[facility]: d [facility] codeine DA Active [place] 2011- [facility] 0-09 [facility] 00:[facility]: d [facility] codeine DA Active [place] rash 2011- [facility] 0-09 [facility] 00:[facility]: d 00 [facility] NO KNOWN Drug Active Univers ALLERGIE Class ity of S [facility] Family History Family Member Diagnosis Comments Start Date Stop Date Source Maternal grandfather Emphysema Univ ersity [facility] Cance r Paige Natural sister Lung cancer [facility] [place] [facility] Social History Social Habit Start Date Stop Date Quantity Comments Source History of tobacco Cigarette Smoker University of [facility] MD Levi darden [facility] History SDOH University o f Alcohol Frequency [facility] History SDOH University o f Alcohol Std Drinks [facility] History SDOH University o f Alcohol Binge [place] MD Farhan gustafson [facility] Exposure to 2022-09-03 2022-09-13 Not sure University of SARS-CoV-2 (event) 00:00:00 08:17:00 [facility] Cigarettes smoked 2022-09-13 2022-09-13 Univers ity of current (pack per 00:00:00 00:00:00 [facility] ) - Reported Cancer Ce nter Tobacco use and 2022-09-13 2022-09-13 Smokeless Universit y of exposure 00:00:00 00:00:00 tobacco non-user [facility] Alcohol intake 2022-09-13 2022-09-13 Ex-drinker University of 00:00:00 00:00:00 (finding) Willis darden [facility] Alcohol Comment 2020-03-02 2020-03-02 .5 gallon of Univers ity of 00:00:00 00:00:00 vodka daily 15 [facility] Ramírez nderson [facility] ago [facility] Sex Assigned At [birth year] Universit y of 00:00:00 00:00:00 Willis darden [facility] Smoking Status Start Date Stop Date Source Ex-smoker 2022-09-13 00:00:00 2022-09-13 00:00:00 [facility] Medications Ordered Filled Start Stop Current Ordering Indication Dosage Frequency Signature Comments Components Source Medication Medication Date Date Medication? Clinician (SIG) Name Name atorvastati Yes 40mg Take 40 mg Univers n (LIPITOR) 3-17 by mouth ity of 40 mg 11:58: daily. [place] tablet 00 MD Fuentes zimmerman [facility] budesonide Yes severe .25mg Inhale Un yakov (PULMICORT) 3-17 chronic 0.25 mg by ity of 0.25 mg/2 11:58: obstructive nebulizati [place] mL 00 pulmonary on daily. nebulizer disease [facility] solution [facility] umeclidiniu Yes Inhale by U nivers m-vilantero 3-17 mouth. ity of L 62.5-25 11:58: [place] mcg/actuati 00 on dsdv [facility] megestrol Yes 400mg Give 400 Uni vers (MEGACE) 40 3-17 mg per ity of mg/mL 11:58: G-tube. [place] suspension 00 MD Fuentes zimmerman [facility] atorvastati Yes 40mg Take 40 mg Univers n (LIPITOR) 3-17 by mouth ity of 40 mg 11:58: daily. [place] tablet 00 MD Dill [facility] budesonide Yes severe .25mg Inhale Un yakov (PULMICORT) 3-17 chronic 0.25 mg by ity of 0.25 mg/2 11:58: obstructive nebulizati [place] mL 00 pulmonary on daily. [facility]bulizer disease [facility] umeclidiniu Yes Inhale by U nivers m-vilantero 3-17 mouth. ity of L 62.5-25 11:58: [place] mcg/actuati 00 on dsdv [facility] megestrol Yes 400mg Give 400 Uni vers (MEGACE) 40 3-17 mg per ity of mg/mL 11:58: G-tube. [place] suspension 00 MD Dill [facility] atorvastati Yes 40mg Take 40 mg Univers n (LIPITOR) 3-17 by mouth ity of 40 mg 11:58: daily. [place] tablet 00 MD Dill [facility] budesonide Yes severe .25mg Inhale Un yakov (PULMICORT) 3-17 chronic 0.25 mg by ity of 0.25 mg/2 11:58: obstructive nebulizati [place] mL 00 pulmonary on daily. nebulizer disease Anderso solution [facility] umeclidiniu Yes Inhale by U nivers m-vilantero 3-17 mouth. ity of L 62.5-25 11:58: [place] mcg/actuati 00 [facility] Yes 400mg Give 400 Uni vers (MEGACE) 40 3-17 mg per ity of mg/mL 11:58: G-tube. [place] suspension 00 MD Dill [facility] atorvastati Yes 40mg Take 40 mg Univers n (LIPITOR) 3-17 by mouth ity of 40 mg 11:58: daily. [place] tablet 00 MD Dill [facility] budesonide Yes severe .25mg Inhale Un yakov (PULMICORT) 3-17 chronic 0.25 mg by ity of 0.25 mg/2 11:58: obstructive nebulizati [place] mL 00 pulmonary on daily. [facility]bulizer disease [facility] Inhale by U nivers m-vilantero 3-17 mouth. ity of L 62.5-25 11:58: [place] mcg/actuati 00 [facility]v [facility] me[facility]rol Yes 400mg Give 400 Uni vers (MEGACE) 40 3-17 mg per ity of mg/mL 11:58: G-tube. [place] suspension 00 MD Dill [facility] Eliquis 5 Yes 5mg Take 1 Univer s mg tablet 3-06 tablet (5 ity o f 00:00: mg) by 00 mouth MD maggy scott. [facility] Eliquis 5 Yes 5mg Take 1 Univer s mg tablet 3-06 tablet (5 ity o f 00:00: mg) by [place] 00 mouth twice Anderso daily. n [facility] Eliqu 5 2022-0 Yes 5mg Take 1 Univer s mg tablet 3-06 tablet (5 ity o f 00:00: mg) by [place] mouth twice Anderso daily. n [facility] Eliqu 5 2022-0 Yes 5mg Take 1 Univer s mg tablet 3-06 tablet (5 ity o f 00:00: mg) by [place] mouth twice [facility] Yes Inhale by U nivers m-vilantero 2-09 mouth. ity of L 62.5-25 12:33: [place] mcg/actuati 10 MD on [facility]v [facility] Yes Inhale by U nivers m-vilantero 2-09 mouth. ity of L 62.5-25 12:33: [place] mcg/actuati 10 on dsdv [facility] atorvastati 2021-06 Yes 40mg Take 40 mg Univers n (LIPITOR) 2-09 by mouth ity of 40 mg 12:30: daily. [place] tablet 21 MD Dill [facility] budesonide 2021-06 Yes severe .25mg Inhale Un yakov (PULMICORT) 2-09 chronic 0.25 mg by ity of 0.25 mg/2 12:30: obstructive nebulizati [place] mL 21 pulmonary on daily. nebulizer disease Anderso solution [facility] megestrol 2021-06 Yes 400mg Give 400 Uni vers (MEGACE) 40 2-09 mg per ity of mg/mL 12:30: G-tube. [place] suspension 21 MD Fuentes zimmerman [facility] atorvastati 2021-06 Yes 40mg Take 40 mg Univers n (LIPITOR) 2-09 by mouth ity of 40 mg 12:30: daily. [place] tablet 21 [facility] budesonide 2021-06 Yes severe .25mg Inhale Un yakov (PULMICORT) 2-09 chronic 0.25 mg by ity of 0.25 mg/2 12:30: obstructive nebulizati [place] mL 21 pulmonary on daily. nebulizer disease Anderso solution [facility] megestrol 2021-06 Yes 400mg Give 400 Uni vers (MEGACE) 40 2-09 mg per ity of mg/mL 12:30: G-tube. [place] suspension 21 MD [facility] HYDROcodone 2021-06- No Small cell 1{tbl} Take 1 Univers -acetaminop 2-07-08 carcinoma, tablet by ity of hen ([employer]) 00:00: 05:59 NOS of mouth [place] 5 mg-325 mg 00 :00 upper lobe, every 8 MD per tablet lung (eight) Bakari o <Right> hours as n needed for Cancer moderate Center pain for up to 30 days. HYDROcodone 2021-06- No Small cell 1{tbl} Take 1 Univers -acetaminop 2-07-08 carcinoma, tablet by ity of hen ([employer]) 00:00: 05:59 NOS of mouth [place] 5 mg-325 mg 00 :00 upper lobe, every 8 MD per tablet lung (eight) Bakari o <Right> hours as n needed for Cancer moderate Center pain for up to 30 days. HYDROcodone 2021-06- No Small cell 1{tbl} Take 1 Univers -acetaminop 2-07-08 carcinoma, tablet by ity of hen ([employer]) 00:00: 05:59 NOS of mouth [place] 5 mg-325 mg 00 :00 upper lobe, every 8 MD per tablet lung (eight) Bakari o <Right> hours as n needed for Cancer moderate Center pain for up to 30 days. HYDROcodone 2021-06- No Small cell 1{tbl} Take 1 Univers -acetaminop 2-07-08 carcinoma, tablet by ity of hen ([employer]) 00:00: 05:59 NOS of mouth [place] 5 mg-325 mg 00 :00 upper lobe, every 8 MD per tablet lung (eight) Bakari o <Right> hours as n needed for Cancer moderate Center pain for up to 30 days. HYDROcodone 2021-06- No Small cell 1{tbl} Take 1 Univers -acetaminop 2-07-08 carcinoma, tablet by ity of hen ([employer]) 00:00: 05:59 NOS of mouth [place] 5 mg-325 mg 00 :00 upper lobe, every 8 MD per tablet lung (eight) Bakari o <Right> hours as n needed for Cancer moderate Center pain for up to 30 days. HYDROcodone 2021-06- No Small cell 1{tbl} Take 1 Univers -acetaminop 08-08 carcinoma, tablet by ity of hen ([place]) 00:00: 05:59 [place]OS of mouth [place] [...] <Right> daily for n tablet 10 days. [facility] amoxicillin 2021-06- No Small cell 875mg Take 1 Univers -clavulanat 08-08 carcinoma, tablet ity of e 00:00: 05:59 NOS of (875 mg) [place] (AUGMENTIN) 00 :00 upper lobe, by mouth 875 mg-125 lung twice Anderso mg per <Right> daily for n tablet 10 days. [facility] amoxicillin 2021-06- No Small cell 875mg Take 1 Univers -clavulanat 08-08 carcinoma, tablet ity of e 00:00: 05:59 NOS of (875 mg) [place] (AUGMENTIN) 00 :00 upper lobe, by mouth 875 mg-125 lung twice Anderso mg per <Right> daily for n tablet 10 days. [facility] amoxicillin 2021-06- No Small cell 875mg Take 1 Univers -clavulanat 08-08 carcinoma, tablet ity of e 00:00: 05:59 NOS of (875 mg) [place] (AUGMENTIN) 00 :00 upper lobe, by mouth 875 mg-125 lung twice Anderso mg per <Right> daily for n tablet 10 days. [facility] amoxicillin 2021-06- No Small cell 875mg Take 1 Univers -clavulanat 08-08 carcinoma, tablet ity of e 00:00: 05:59 NOS of (875 mg) [place] (AUGMENTIN) 00 :00 upper lobe, by mouth 875 mg-125 lung twice Anderso mg per <Right> daily for n tablet 10 days. [facility] amoxicillin 2021-06 202- Small cell 875mg Take 1 Univers -clavulanat 08-08 12-20 carcinoma, tablet ity of e 00:00: 05:59 NOS of (875 mg) [place] (AUGMENTIN) 00 :00 upper lobe, by mouth 875 mg-125 lung twice Anderso mg per <Right> daily for n [facility] Yes 5mg Take 1 Univer s (PROAMATINE 1-14 tablet (5 ity of ) 5 mg 00:00: mg) by [place] tablet 00 mouth [facility] Yes 5mg Take 1 Univer s (PROAMATINE 1-14 tablet (5 ity of ) 5 mg 00:00: mg) by [place] tablet 00 mouth MD twice Anderso daily. n [facility] midodrine 2021-06 Yes 5mg Take 1 Univer s (PROAMATINE 1-14 tablet (5 ity of ) 5 mg 00:00: mg) by [place] tablet 00 mouth MD twice [facility] Yes 5mg Take 1 Univer s (PROAMATINE 1-14 tablet (5 ity of ) 5 mg 00:00: mg) by [place] tablet 00 mouth MD twice Anderso daily. [facility] midodrine 2021-06 Yes 5mg Take 1 Univer s (PROAMATINE 1-14 tablet (5 ity of ) 5 mg 00:00: mg) by [place] tablet 00 mouth MD twice [facility]. [facility] Yes 5mg Take 1 Univer s (PROAMATINE 1-14 tablet (5 ity of ) 5 mg 00:00: mg) by [place] tablet 00 mouth MD twice Anderso daily. [facility] nystatin 2021-06 Yes [id number] Take 5 mL U nivers (MYCOSTATIN 1-03 (500,000 ity of ) 100,000 00:00: Units) by [place] units/mL 00 mouth MD suspension every 8 Bakari o (eight) n hours. [facility] nystatin 2021-06 Yes [id number] Take 5 mL U nivers (MYCOSTATIN 1-03 (500,000 ity of ) 100,000 00:00: Units) by [place] units/mL 00 mouth MD suspension every 8 Bakari o (eight) n hours. [facility] nystatin 2021-06 Yes 5mL Take 5 mL Univ ers (MYCOSTATIN 1-03 (500,000 ity of ) 100,000 00:00: Units) by [place] units/mL 00 mouth MD suspension every 8 Bakari o (eight) n hours. [facility] nystatin 2021-06 Yes 5mL Take 5 mL Univ ers (MYCOSTATIN 1-03 (500,000 ity of ) 100,000 00:00: Units) by [place] units/mL 00 mouth MD suspension every 8 Bakari o (eight) n hours. [facility] nystatin 2021-06 Yes 5mL Take 5 mL Univ ers (MYCOSTATIN 1-03 (500,000 ity of ) 100,000 00:00: Units) by [place] units/mL 00 mouth MD suspension every 8 Bakari o (eight) n hours. [facility] nystatin 2021-06 Yes 5mL Take 5 mL Univ ers (MYCOSTATIN 1-03 (500,000 ity of ) 100,000 00:00: Units) by [place] units/mL 00 mouth MD suspension every 8 Bakari o (eight) n hours. [facility] QUEtiapine Yes Anxiety 25mg Take 1 Un [...] mg) by [place] tablet 00 general mouth [place] medical every 6 Anderso condition (six) n hours as Cancer needed for Center non-violen t agitation (anxiety sleep). QUEtiapine Yes Anxiety 25mg Take 1 Un yakov (SEROquel) 12-28 disorder tablet (25 ity of 25 mg 00:00: due to a mg) by [place] tablet 00 general mouth [place] medical every 6 Anderso condition (six) n hours as Cancer needed for Center non-violen t agitation (anxiety sleep). QUEtiapine 0 Yes Anxiety 25mg Take 1 Un y[facility] (SEROquel) - disorder tablet (25 ity of 25 mg 00:00: due to a mg) by [place] tablet 00 general mouth [place] medical every 6 Anderso condition (six) n hours as Cancer needed for Center non-violen t agitation (anxiety sleep). QUEtiapine Yes Anxiety 25mg Take 1 Un [facility] (SEROquel) - disorder tablet (25 ity of 25 mg 00:00: due to a mg) by [place] tablet 00 general mouth [place] medical every 6 Anderso condition (six) n [...] MD daily for Anderso 4 days. n [facility] fluconazole 2021- No Cand[place] 200mg Take 1 Univers (Diflucan) 10-25- esophagitis tablet ity of 200 mg 00:00: 04:59 (200 mg) [place] tablet 00 :00 by mouth MD daily for Anderso 4 days. n [facility] fluconazole 2021- No [place] 200mg Take 1 Univers (Diflucan) 10-25- esophagitis tablet ity of 200 mg 00:00: 04:59 (200 mg) [place] tablet 00 :00 by mouth MD daily for Anderso 4 days. [facility] fluconazole 2021- No [place] 200mg Take 1 Univers (Diflucan) 10-25 esophagitis tablet ity of 200 mg 00:00: 04:59 (200 mg) [place] tablet 00 :00 by mouth MD daily for Anderso 4 days. n [facility] fluconazole 2021- No [place] 200mg Take 1 Univers (Diflucan) 10-25 esophagitis tablet ity of 200 mg 00:00: 04:59 (200 mg) [place] tablet 00 :00 by mouth MD daily for Anderso 4 days. n [facility] fluconazole 2021- No [place] 200mg Take 1 Univers (Diflucan) 10-25 esophagitis tablet ity of 200 mg 00:00: 04:59 (200 mg) [place] tablet 00 :00 by mouth MD daily for Anderso 4 days. [facility] fluconazole 2021- No [place] 200mg Take 1 Univers (Diflucan) 10-25- esophagitis tablet ity of 200 mg 00:00: 04:59 (200 mg) [place] tablet 00 :00 by mouth MD daily for Anderso 4 days. n [facility] promethazin 2021- No 12.5mg Take 12.5 Univers e 10-24 04-27 mg by ity of (PHENERGAN) 18:27: 00:00 [place] 12.5 mg 03 :00 every 6 MD tablet (six) Anderso hours as n needed. Cancer [place] aspirin 81 2021- No 81mg Take 81 mg Univers mg EC 4-27 04-27 by mouth ity of tablet 18:27: 00:00 as needed. [place] :00 MD Fuentes zimmerman [facility] 2021- No 12.5mg Take 12.5 Univers e 4-27 04-27 mg by ity of (PHENERGAN) 18:27: 00:00 [place] 12.5 mg 03 :00 every 6 MD tablet (six) Anderso hours as n needed. Cancer [place] aspirin 81 2021- No 81mg Take 81 mg Univers mg EC 4- 04-27 by mouth ity of tablet 18:27: 00:00 as needed. [place]ine s 03 :00 MD Fuentes zimmerman [facility] 2021- No 12.5mg Take 12.5 Univers e 4- 04-27 mg by ity of (PHENERGAN) 18:27: 00:00 [place] 12.5 mg 03 :00 every 6 MD tablet (six) [place] hours as n needed. Cancer [place] aspirin 81 2021- No 81mg Take 81 mg Univers mg EC 4- 04-27 by mouth ity of tablet 18:27: 00:00 [place]. [place] 03 [place]00 [place] Fuentes zimmerman [facility] 2021- No 12.5mg Take 12.5 Univers e 4- 04-27 mg by ity of (PHENERGAN) 18:27: 00:00 [place] 12.5 mg 03 :00 every 6 MD tablet (six) [place] hours as n needed. Cancer [place] aspirin 81 2021- No 81mg Take 81 mg Univers mg EC 4- 04-27 by mouth ity of tablet 18:27: 00:00 [place]. [place] 03 :00 [place] Fuentes zimmerman [facility] 2021- No 12.5mg Take 12.5 Univers e 4-27 04-27 mg by ity of (PHENERGAN) 18:27: 00:00 mouth [place] 12.5 mg 03 :00 every 6 MD tablet (six) [place] hours as n needed. Cancer [place] aspirin 81 2021- No 81mg Take 81 mg Univers mg EC - 04-27 by mouth ity of tablet 18:27: 00:00 as needed. Francine s 03 :00 MD Fuentes zimmerman [facility] promethazin 2021- No 12.5mg Take 12.5 Univers e 4- 04-27 mg by ity of (PHENERGAN) 18:27: 00:00 [place] 12.5 mg 03 :00 every 6 tablet (six) [place] hours as n needed. [facility] aspirin 81 2021- No 81mg Take 81 mg Univers mg EC - 04-27 by mouth ity of tablet 18:27: 00:00 as needed. [place]ine s 03 :00 MD Fuentes zimmerman [facility] promethazin No 12.5mg Take 12.5 Univers e - 04-27 mg by ity of (PHENERGAN) 18:27: 00:00 [place] 12.5 mg 03 :00 every 6 tablet (six) Anders[place] hours as n needed. [facility] aspirin 81 2021- No 81mg Take 81 mg Univers mg EC 10-24 04-27 by mouth ity of tablet 18:27: 00:00 as needed. Francine s 03 :00 MD Dill [facility] atorvastati Yes 40mg Take 40 mg Univers n (LIPITOR) -27 by mouth ity of 40 mg 18:26: daily. 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 [facility] Inhale by U nivers m-vilantero 4-27 mouth. ity of L 62.5-25 18:26: [place] mcg/actuati 55 MD on dsdv [facility] megestrol Yes 400mg Give 400 Uni vers (MEGACE) 40 4-27 mg per ity of mg/mL 18:26: G-tube. [place] suspension 55 [facility] atorvastati Yes 40mg Take 40 mg Univers n (LIPITOR) 4-27 by mouth ity of 40 mg 18:26: daily. 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 nebulizer disease [facility] Inhale by U nivers m-vilantero 4-27 mouth. ity of L 62.5-25 18:26: [place] mcg/actuati 55 on dsdv [facility] megestrol Yes 400mg Give 400 Uni vers (MEGACE) 40 4-27 mg per ity of mg/mL 18:26: G-tube. [place] suspension 55 [facility] atorvastati Yes 40mg Take 40 mg Univers n (LIPITOR) 4-27 by mouth ity of 40 mg 18:26: daily. [place] tablet 55 [facility] budesonide Yes severe .25mg Inhale Un yakov (PULMICORT) 4-27 chronic 0.25 mg by ity of 0.25 mg/2 18:26: obstructive nebulizati [place] mL 55 pulmonary [facility] daily. [facility] umeclidiniu Yes Inhale by U nivers m-vilantero 4-27 mouth. ity of L 62.5-25 18:26: [place] mcg/actuati 55 on dsdv [facility] megestrol Yes 400mg Give 400 Uni vers (MEGACE) 40 4-27 mg per ity of mg/mL 18:26: G-tube. [place] suspension 55 [facility] ipratropium Yes Pneumocysto 3mL Inhale 1 [...] mg 00:00: with mixed (75 mg) by [place] tablet 00 anxiety and mouth at [place] depressed bedtime. Bakari o mood n Cancer [...] mg 00:00: with mixed (75 mg) by [place] tablet 00 anxiety and mouth at MD [...] specified daily for n tablet 7 days. [facility] amoxicillin 2021- No Upper 875mg Take 1 U nivers -clavulanat 10-11 respiratory tablet ity of e 00:00: 00:00 infection, (875 mg) [place] (Augmentin) 00 :00 not by mouth 875 mg-125 otherwise twice And erso mg per specified daily for n tablet 7 days. [facility] amoxicillin 2021- No Upper 875mg Take 1 U nivers -clavulanat 10-11 respiratory tablet ity of e 00:00: 00:00 infection, (875 mg) [place] (Augmentin) 00 :00 not by mouth 875 mg-125 otherwise twice And erso mg per specified daily for n tablet 7 days. [facility] amoxicillin 2021- No Upper 875mg Take 1 U nivers -clavulanat 10-11 respiratory tablet ity of e 00:00: 00:00 infection, (875 mg) [place] (Augmentin) 00 :00 not by mouth 875 mg-125 otherwise twice And erso mg per specified daily for n tablet 7 days. [facility] amoxicillin 2021- No Upper 875mg Take 1 U nivers -clavulanat 10-11 respiratory tablet ity of e 00:00: 00:00 infection, (875 mg) [place] (Augmentin) 00 :00 not by mouth 875 mg-125 otherwise twice And erso mg per specified daily for n tablet 7 days. [facility] amoxicillin 2021- No Upper 875mg Take 1 U nivers -clavulanat 10-11 respiratory tablet ity of e 00:00: 00:00 infection, (875 mg) [place] (Augmentin) 00 :00 not by mouth MD 875 mg-125 otherwise twice And erso mg per specified daily for n tablet 7 days. [facility] amoxicillin 2021- No Upper 875mg Take 1 U nivers -clavulanat 10-11 respiratory tablet ity of e 00:00: 00:00 infection, (875 mg) [place] (Augmentin) 00 :00 not by mouth MD 875 mg-125 otherwise twice And erso mg per specified daily for n tablet 7 days. [facility] amoxicillin 2021- No Decompensat 875mg Take 1 Univers -clavulanat 10-10 ed COPD tablet it y of e 00:00: 00:00 with acute (875 mg) [place] (Augmentin) 00 :00 exacerbatio by mouth 875 mg-125 n twice [place] mg per daily for n tablet 5 days. [facility] amoxicillin 2021- No Decompensat 875mg Take 1 Univers -clavulanat 10-10 ed COPD tablet it y of e 00:00: 00:00 with acute (875 mg) [place] (Augmentin) 00 :00 exacerbatio by mouth 875 mg-125 n twice [place] mg per daily for n tablet 5 days. [facility] amoxicillin 2021- No Decompensat 875mg Take 1 Univers -clavulanat 10-10 ed COPD tablet it y of e 00:00: 00:00 with acute (875 mg) [place] (Augmentin) 00 :00 exacerbatio by mouth 875 mg-125 n twice [place] mg per daily for n tablet 5 days. [facility] amoxicillin 2021- No Decompensat 875mg Take 1 Univers -clavulanat 10-10 ed COPD tablet it y of e 00:00: 00:00 with acute (875 mg) [place] (Augmentin) 00 :00 exacerbatio by mouth 875 mg-125 n twice [place] mg per daily for n tablet 5 days. [facility] amoxicillin 2021- No Decompensat 875mg Take 1 Univers -clavulanat 10-1014 ed COPD tablet it y of e 00:00: 00:00 with acute (875 mg) [place] (Augmentin) 00 :00 exacerbatio by mouth MD 875 mg-125 n twice [place] mg per daily for n tablet 5 days. [facility] amoxicillin 2021- No Decompensat 875mg Take 1 Univers -clavulanat 10-10 ed COPD tablet it y of e 00:00: 00:00 with acute (875 mg) [place] (Augmentin) 00 :00 exacerbatio by mouth MD 875 mg-125 n twice [place] mg per daily for n tablet 5 days. [facility] amoxicillin 2021- No Decompensat 875mg Take 1 Univers -clavulanat 10-10 ed COPD tablet it y of e 00:00: 00:00 with acute (875 mg) [place] (Augmentin) 00 :00 exacerbatio by mouth MD 875 mg-125 n twice [place] mg per daily for n tablet 5 days. [facility] acetaminoph Yes Neoplasm 1{tbl} Take 1 Univers [...] t agitation. amoxicillin 2021- No [facility] 875mg Take 1 Univers -clavulanat 09-07 acquired tablet i ty of e 00:00: 04:59 pneumonia (875 mg) [place] (AUGMENTIN) 00 :00 by mouth 875 mg-125 every 12 [place] so mg per (twelve) n tablet hours for Cancer 3 days. [place] amoxicillin 2021- No [facility] 875mg Take 1 Univers -clavulanat 09-07 acquired tablet i ty of e 00:00: 04:59 pneumonia (875 mg) [place] (AUGMENTIN) 00 :00 by mouth 875 mg-125 every 12 [place] so mg per (twelve) n tablet hours for Cancer 3 days. [place] amoxicillin 2021- No [facility] 875mg Take 1 Univers -clavulanat 09-07 acquired tablet i ty of e 00:00: 04:59 pneumonia (875 mg) [place] (AUGMENTIN) 00 :00 by mouth 875 mg-125 every 12 [place] so mg per (twelve) n tablet hours for Cancer 3 days. [place] amoxicillin 2021- No [facility] 875mg Take 1 Univers -clavulanat 09-07 acquired tablet i ty of e 00:00: 04:59 pneumonia (875 mg) [place] (AUGMENTIN) 00 :00 by mouth MD 875 mg-125 every 12 [place] so mg per (twelve) n tablet hours for Cancer 3 days. [place] amoxicillin 2021- No [facility] 875mg Take 1 Univers -clavulanat 09-07 acquired tablet i ty of e 00:00: 04:59 pneumonia (875 mg) [place] (AUGMENTIN) 00 :00 by mouth MD 875 mg-125 every 12 [place] so mg per (twelve) n tablet hours for Cancer 3 days. [place] amoxicillin [id number] 875mg Take 1 Univers -clavulanat 09-07 acquired tablet i ty of e 00:00: 00:00 pneumonia (875 mg) [place] (AUGMENTIN) 00 :00 by mouth MD 875 mg-125 every 12 [place] so mg per (twelve) n tablet hours for Cancer 3 days. [place] amoxicillin [id number] 875mg Take 1 Univers -clavulanat 09-07 acquired tablet i ty of e 00:00: 00:00 pneumonia (875 mg) [place] (AUGMENTIN) 00 :00 by mouth 875 mg-125 every 12 [place] so mg per (twelve) n tablet hours for Cancer 3 days. [place] amoxicillin 2021- No [facility] 875mg Take 1 Univers -clavulanat 09-07 acquired tablet i ty of e 00:00: 00:00 pneumonia (875 mg) [place] (AUGMENTIN) 00 :00 by mouth MD 875 mg-125 every 12 [place] so mg per (twelve) n tablet hours for Cancer 3 days. [place] amoxicillin 2021 No [facility] 875mg Take 1 Univers -clavulanat 09-07 acquired tablet i ty of e 00:00: 00:00 pneumonia (875 mg) [place] (AUGMENTIN) 00 :00 by mouth MD 875 mg-125 every 12 [place] so mg per (twelve) n tablet hours for Cancer 3 days. [place] amoxicillin 2021- No [facility] 875mg Take 1 Univers -clavulanat 09-07 acquired tablet i ty of e 00:00: 00:00 pneumonia (875 mg) [place] (AUGMENTIN) 00 :00 by mouth MD 875 mg-125 every 12 [place] so mg per (twelve) n tablet hours for Cancer 3 days. [place] amoxicillin 2021- No [facility] 875mg Take 1 Univers -clavulanat 09-07 acquired tablet i ty of e 00:00: 00:00 pneumonia (875 mg) [place] (AUGMENTIN) 00 :00 by mouth MD 875 mg-125 every 12 [place] so mg per (twelve) n tablet hours for Cancer 3 days. [place] amoxicillin 2021- No [facility] 875mg Take 1 Univers -clavulanat 09-07 acquired tablet i ty of e 00:00: 00:00 pneumonia (875 mg) [place] (AUGMENTIN) 00 :00 by mouth MD 875 mg-125 every 12 [place] so mg per (twelve) n tablet hours for Cancer 3 days. [place] amoxicillin [id number] No [facility] 875mg Take 1 Univers -clavulanat 09-07 acquired tablet i ty of e 00:00: 00:00 pneumonia (875 mg) [place] (AUGMENTIN) 00 :00 by mouth MD 875 mg-125 every 12 [place] so mg per (twelve) n tablet hours for Cancer 3 days. [place] amoxicillin [id number]- No [facility] 875mg Take 1 Univers -clavulanat 09-07 acquired tablet i ty of e 00:00: 00:00 pneumonia (875 mg) [place] (AUGMENTIN) 00 :00 by mouth MD 875 mg-125 every 12 [place] so mg per (twelve) n tablet hours for Cancer 3 days. [place] amoxicillin 2021- No [facility] 875mg Take 1 Univers -clavulanat 09-07 acquired tablet i ty of e 00:00: 00:00 pneumonia (875 mg) [place] (AUGMENTIN) 00 :00 by mouth MD 875 mg-125 every 12 [place] so mg per (twelve) n tablet hours for Cancer 3 days. [place] HYDROcodone 2021- No Adjustment 1{tbl} Take 1 Univers -acetaminop 2-19 03-11 disorder tablet by ity of [employer] ([employer]) 00:00: 00:00 with mixed mouth [place] 5 mg-325 mg 00 :00 anxiety and every 6 MD per tablet depressed (six) And erso mood hours as n needed for Cancer moderate Center pain for up to 30 days. HYDROcodone 2021- No Adjustment 1{tbl} Take 1 Univers -acetaminop 2-19 -11 disorder tablet by ity of [employer] ([employer]) 00:00: 00:00 with mixed mouth [place] 5 mg-325 mg 00 :00 anxiety and every 6 MD per tablet depressed (six) And erso mood hours as n needed for Cancer moderate Center pain for up to 30 days. HYDROcodone 2021- No Adjustment 1{tbl} Take 1 Univers -acetaminop 2-19 03-11 disorder tablet by ity of [employer]) 00:00: 00:00 with mixed mouth [place] 5 mg-325 mg 00 :00 anxiety and every 6 MD per tablet depressed (six) And erso mood hours as n needed for Cancer moderate Center pain for up to 30 days. HYDROcodone 2021- No Adjustment 1{tbl} Take 1 Univers -acetaminop 2-19 -11 disorder tablet by ity of [employer] ([employer]) 00:00: 00:00 with mixed mouth [place] 5 mg-325 mg 00 :00 anxiety and every 6 MD per tablet depressed (six) And erso mood hours as n needed for Cancer moderate Center pain for up to 30 days. HYDROcodone 2021- No Adjustment 1{tbl} Take 1 Univers -acetaminop 2-19 -11 disorder tablet by ity of [employer] ([employer]) 00:00: 00:00 with mixed mouth [place] 5 [...] tablet 00 :00 anxiety and mouth at [place] depressed bedtime. [facility] QUEtiapine 2021- No Adjustment 75mg Take 3 Univers (SEROquel) 08-14 disorder tablets i ty of 25 mg 00:00: 00:00 with mixed (75 mg) by [place] tablet 00 :00 anxiety and mouth at AL depressed bedtime. [facility] QUEtiapine 2021- No Adjustment 75mg Take 3 Univers (SEROquel) 08-14 disorder tablets i ty of 25 mg 00:00: 00:00 with mixed (75 mg) by [place] tablet 00 :00 anxiety and mouth at AL depressed bedtime. [facility] QUEtiapine 2021- No Adjustment 75mg Take 3 Univers (SEROquel) 08-14 disorder tablets i ty of 25 mg 00:00: 00:00 with mixed (75 mg) by [place] tablet 00 :00 anxiety and mouth at AL depressed bedtime. [facility] QUEtiapine 2021- No Adjustment 75mg Take 3 Univers (SEROquel) 08-14 disorder tablets i ty of 25 mg 00:00: 00:00 with mixed (75 mg) by [place] tablet 00 :00 anxiety and mouth at AL depressed bedtime. [facility] QUEtiapine 2021- No Adjustment 75mg Take 3 Univers (SEROquel) 08-14 disorder tablets i ty of 25 mg 00:00: 00:00 with mixed (75 mg) by [place] tablet 00 :00 anxiety and mouth at AL depressed bedtime. [facility] QUEtiapine 2021- No Adjustment 75mg Take 3 Univers (SEROquel) 08-14 disorder tablets i ty of 25 mg 00:00: 00:00 with mixed (75 mg) by [place] tablet 00 :00 anxiety and mouth at AL depressed bedtime. [facility] HYDROcodone 2021- No Adjustment 1{tbl} Take 1 Univers -acetaminop 08-14 disorder tablet by [place] ([place]) 00:00: 00:00 with mixed mouth [place] 5 mg-325 mg 00 :00 anxiety and every 6 MD per tablet depressed (six) And erso mood hours as n needed for Cancer moderate Center pain for up to 30 days. HYDROcodone 2021- No Adjustment 1{tbl} Take 1 Univers -acetaminop 2-15 -19 disorder tablet by ity of hen ([employer]) 00:00: 00:00 with mixed mouth [place] 5 mg-325 mg 00 :00 anxiety and every 6 MD per tablet depressed (six) And erso mood hours as n needed for Cancer moderate Center pain for up to 30 days. HYDROcodone 2021- No Adjustment 1{tbl} Take 1 Univers -acetaminop 2-15 -19 disorder tablet by ity of hen ([place]) 00:00: 00:00 with mixed mouth [place] 5 mg-325 mg 00 :00 anxiety and every 6 MD per tablet depressed (six) And erso mood hours as n needed for Cancer moderate Center pain for up to 30 days. HYDROcodone 2021- No Adjustment 1{tbl} Take 1 Univers -acetaminop 2-15 -19 disorder tablet by ity of hen ([place]) 00:00: 00:00 with mixed mouth [place] 5 [...] MD lung TWICE [place] 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, TABLET(10 ity of 10 mg 00:00: NOS of MG) BY [place] tablet 00 upper lobe, MOUTH MD lung TWICE [place] <Right> 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, TABLET(10 ity of 10 mg 00:00: NOS of MG) BY [place] tablet 00 upper lobe, MOUTH MD lung TWICE [place] <Right> [facility]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, TABLET(10 ity of 10 mg 00:00: NOS of MG) BY [place] tablet 00 upper lobe, MOUTH MD lung TWICE [place] <Right> [facility]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, TABLET(10 ity of 10 mg 00:00: NOS of MG) BY [place] tablet 00 upper lobe, MOUTH MD lung TWICE [place] <Right> [facility]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, TABLET(10 ity of 10 mg 00:00: NOS of MG) BY [place] tablet 00 upper lobe, MOUTH MD lung TWICE [place] <Right> DAILY [facility] memantine 2021- No Small cell 5 mg [...] EC 00 tract MOUTH MD tablet DAILY [facility] pantoprazol Yes Aspiration TAKE 1 Univers e 1-28 into lower TABLET(40 ity of (PROTONIX) 00:00: respiratory MG) BY [place] 40 mg EC 00 tract MOUTH MD tablet DAILY [facility] pantoprazol Yes Aspiration TAKE 1 Univers e 1-28 into lower TABLET(40 ity of (PROTONIX) 00:00: respiratory MG) BY [place] 40 mg EC 00 tract MOUTH MD tablet DAILY [facility] pantoprazol Yes Aspiration TAKE 1 Univers e 1-28 into lower TABLET(40 ity of (PROTONIX) 00:00: respiratory MG) BY [place] 40 mg EC 00 tract MOUTH MD tablet DAILY [facility] pantoprazol Yes Aspiration TAKE 1 Univers e 1-28 into lower TABLET(40 ity of (PROTONIX) 00:00: respiratory MG) BY [place] 40 mg EC 00 tract MOUTH MD tablet DAILY [facility] pantoprazol Yes Aspiration TAKE 1 Univers e 1-28 into lower TABLET(40 ity of (PROTONIX) 00:00: respiratory MG) BY [place] 40 mg EC 00 tract MOUTH MD tablet DAILY [facility] pantoprazol Yes Aspiration TAKE 1 Univers e 1-28 into lower TABLET(40 ity of (PROTONIX) 00:00: respiratory MG) BY [place] 40 mg EC 00 tract MOUTH MD tablet DAILY [facility] pantoprazol Yes Aspiration TAKE 1 Univers e 1-28 into lower TABLET(40 ity of (PROTONIX) 00:00: respiratory MG) BY [place] 40 mg EC 00 tract MOUTH MD tablet DAILY [facility] pantoprazol Yes Aspiration TAKE 1 Univers e 1-28 into lower TABLET(40 ity of (PROTONIX) 00:00: respiratory MG) BY [place] 40 mg EC 00 tract MOUTH MD tablet DAILY [facility] QUEtiapine 2021- No Adjustment 75mg Take 3 Univers (SEROquel) 07-11 disorder tablets i ty of 25 mg 00:00: 00:00 with mixed (75 mg) by [place] tablet 00 :00 anxiety and mouth at AL depressed bedtime. [facility] QUEtiapine 2021- No Adjustment 75mg Take 3 Univers (SEROquel) 07-11 disorder tablets i ty of 25 mg 00:00: 00:00 with mixed (75 mg) by [place] tablet 00 :00 anxiety and mouth at AL depressed bedtime. [facility] QUEtiapine 2021- No Adjustment 75mg Take 3 Univers (SEROquel) 07-1115 disorder tablets i ty of 25 mg 00:00: 00:00 with mixed (75 mg) by [place] tablet 00 :00 anxiety and mouth at AL depressed bedtime. [facility] QUEtiapine 2021- No Adjustment 75mg Take 3 Univers (SEROquel) 07-11 disorder tablets i ty of 25 mg 00:00: 00:00 with mixed (75 mg) by [place] tablet 00 :00 anxiety and mouth at MD depressed bedtime. [facility] pantoprazol 2021- No [place] 40mg Take 1 Univers e 07-11 into lower tablet (40 it y of (PROTONIX) 00:00: 00:00 respiratory mg) by [place] 40 mg EC 00 :00 tract mouth MD tablet daily. [facility] pantoprazol 2021- No [place] 40mg Take 1 Univers e 07-11 into lower tablet (40 it y of (PROTONIX) 00:00: 00:00 respiratory mg) by [place] 40 mg EC 00 :00 tract mouth MD tablet daily. [facility] pantoprazol 2021- No [place] 40mg Take 1 Univers e 07-11 into lower tablet (40 it y of (PROTONIX) 00:00: 00:00 respiratory mg) by [place] 40 mg EC 00 :00 tract mouth MD tablet daily. [facility] pantoprazol 2021- No [place] 40mg Take 1 Univers e 07-11 into lower tablet (40 it y of (PROTONIX) 00:00: 00:00 respiratory mg) by [place] 40 mg EC 00 :00 tract mouth MD tablet daily. [facility] OLANZapine 2021- No Insomnia, 2.5mg Take [...] tablet hours as n needed Cancer (pain). [place] amoxicillin 2020-06- No Upper 875mg Take 1 U nivers -clavulanat 08-14 respiratory tablet ity of e 00:00: 00:00 infection, (875 mg[place] (Augmentin[place] 00 :00 not by mouth MD 875 mg-125 otherwise twice And erso mg per specified daily. 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 [place] amoxicillin 2020-06- No Upper 875mg Take 1 U nivers -clavulanat -15 respiratory tablet ity of e 00:00: 00:00 infection, (875 mg) [place] (Augmentin) 00 :00 not by mouth MD 875 mg-125 otherwise twice And erso mg per specified daily. 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 [place] amoxicillin 2020-06- No Upper 875mg Take 1 U nivers -clavulanat --15 respiratory tablet ity of e 00:00: 00:00 infection, (875 mg) [place] (Augmentin) 00 :00 not by mouth MD 875 mg-125 otherwise twice And erso mg per specified daily. 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 [place] amoxicillin 2020-06- No Upper 875mg Take 1 [...] tablet 00 :00 PRN back MD spasm. [facility] baclofen 2020-06- No Muscle Take 1/2 Un yakov (LIORESAL) 027 11-18 spasm of tablet (5 ity of 10 mg 00:00: 00:00 back mg) PO q12 [place] tablet 00 :00 PRN back MD spasm. [facility] baclofen 2020-06- No Muscle Take 1/2 Un yakov (LIORESAL) 0 11-18 spasm of tablet (5 ity of 10 mg 00:00: 00:00 back mg) PO q12 [place] tablet 00 :00 PRN back MD spasm. [facility] OLANZapine 2020-06- No Adjustment 2.5mg Take 1 [...] erso mg per specified daily. n tablet [facility] amoxicillin 2020-06- No Upper 875mg Take 1 U nivers -clavulanat 0-15 08-22 respiratory tablet ity of e 00:00: 00:00 infection, (875 mg) [place] (Augmentin) 00 :00 not by mouth 875 mg-125 otherwise twice And erso mg per specified daily. n tablet [facility] amoxicillin 2020-06- No Upper 875mg Take 1 U nivers -clavulanat 0-15 08-22 respiratory tablet ity of e 00:00: 00:00 infection, (875 mg) [place] (Augmentin) 00 :00 not by mouth 875 mg-125 otherwise twice And erso mg per specified daily. n tablet [facility] amoxicillin 2020-06- No Upper 875mg Take 1 U nivers -clavulanat 0-15 08-22 respiratory tablet ity of e 00:00: 00:00 infection, (875 mg) [place] (Augmentin) 00 :00 not by mouth 875 mg-125 otherwise twice And erso mg per specified daily. 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 memantine 2020-06- No Small cell TAKE 1 Univers (NAMENDA) 0-12 -14 carcinoma, TABLET(10 ity of 10 mg 00:00: 00:00 NOS of MG) BY [place] tablet 00 :00 upper lobe, MOUTH MD lung TWICE Anderso <Right> DAILY [facility] amoxicillin 2020-06- No Upper 875mg Take 1 U nivers -clavulanat 0-09 10-15 respiratory tablet ity of e 00:00: 00:00 infection, (875 mg) [place] (Augmentin) 00 :00 not by mouth 875 mg-125 otherwise twice And erso mg per specified daily. n tablet [facility] amoxicillin 2020-06- No Upper 875mg Take 1 U nivers -clavulanat 0-09 10-15 respiratory tablet ity of e 00:00: 00:00 infection, (875 mg) [place] (Augmentin) 00 :00 not by mouth 875 mg-125 otherwise twice And erso mg per specified daily. tablet [facility] pantoprazol 2021- No Aspiration 40mg Take 1 Univers e 03-29 into lower tablet (40 it y of (PROTONIX) 00:00: 00:00 respiratory mg) by [place] 40 mg EC 00 :00 tract mouth tablet daily. [facility] pantoprazol 2021- No Aspiration 40mg Take 1 Univers e 03-29 into lower tablet (40 it y of (PROTONIX) 00:00: 00:00 respiratory mg) by [place] 40 mg EC 00 :00 tract mouth tablet daily. [facility] pantoprazol 2021- No Aspiration 40mg Take 1 Univers e 03-29 into lower tablet (40 it y of (PROTONIX) 00:00: 00:00 respiratory mg) by [place] 40 mg EC 00 :00 tract mouth tablet daily. [facility] baclofen 2021-0 2021- No Muscle Take 1/2 Un yakov (LIORESAL) 03-29- spasm of tablet (5 ity of 10 mg 00:00: 00:00 back mg) PO q12 [place] tablet 00 :00 PRN back MD spasm. [facility] baclofen 2020- No Muscle Take 1/2 Un y[place] (LIORESAL) 03-29- spasm of tablet (5 ity of 10 mg 00:00: 00:00 back mg) PO q12 [place] tablet 00 :00 PRN back MD spasm. [facility] baclofen 2020- No Muscle Take 1/2 Un yakov (LIORESAL) 03-29- spasm of tablet (5 ity of 10 mg 00:00: 00:00 back mg) PO q12 [place] tablet 00 :00 PRN back MD spasm. 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 [place] OLANZapine 2020- No Adjustment 2.5mg Take 1 [...] tablet 00 :00 PRN back MD spasm. [facility] baclofen 5 2020- No Muscle 5mg Take 5 mg Univers mg tab 03-08 spasm of by mouth ity of 00:00: 00:00 back every 12 [place] 00 :00 (twelve) MD hours. [facility] QUEtiapine 2021- No Aspiration 75mg 3 tablets Univers (SEROquel) 03-07 into lower (75 mg) by ity of 25 mg 00:00: 00:00 respiratory feeding [place] tablet 00 :00 tract tube route at [facility]. [facility] QUEtiapine 2021- No Aspiration 75mg 3 tablets Univers (SEROquel) 03-07 into lower (75 mg) by ity of 25 mg 00:00: 00:00 respiratory feeding [place] tablet 00 :00 tract tube route at [facility]. [facility] QUEtiapine 2021- No Aspiration 75mg 3 tablets Univers (SEROquel) 03-07 into lower (75 mg) by ity of 25 mg 00:00: 00:00 respiratory feeding [place] tablet 00 :00 tract tube route at [facility]. [facility] QUEtiapine 2020- No Aspiration 75mg 3 tablets Univers (SEROquel) 03-06 into lower (75 mg) by ity of 25 mg 00:00: 00:00 respiratory feeding [place] tablet 00 :00 tract tube route at [facility]. [facility] fluconazole 2020- No Acute 100mg Take 1 U nivers (DIFLUCAN) 03-03 kidney tablet ity of 100 mg 00:00: 04:59 injury due (100 mg) [place] tablet 00 :00 to by mouth hypovolemia daily for And erso 12 days. [facility] lidocaine 2021- No Acute 10mL Swish and [...] mouth MD right lung twice Anderso daily. 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 [facility] baclofen 5 2020- No Muscle 5mg Take 5 mg Univers mg tab 03-02 spasm of by mouth ity of 00:00: 00:00 back every 12 [place] 00 :00 (twelve) MD hours. [facility] pantoprazol 2020- No Aspiration 40mg Take 1 Univers e 02-28 into lower tablet (40 it y of (PROTONIX) 00:00: 00:00 respiratory mg) by [place] 40 mg EC 00 :00 tract mouth tablet daily. [facility] pantoprazol 2020- No Aspiration 40mg Take 1 Univers e 02-28 into lower tablet (40 it y of (PROTONIX) 00:00: 00:00 respiratory mg) by [place] 40 mg EC 00 :00 tract mouth tablet daily. [facility] loperamide Yes Aspiration 2mg Take 1 [...] of mg capsule 00:00: respiratory mg) by [place] [id number] tract mouth MD every 8 [place]o (eight) n hours as Cancer needed for Center diarrhea. Buy over the counter loperamide Yes Aspiration 2mg Take 1 Univers (IMODIUM) 2 8-31 into lower capsule (2 ity of mg capsule 00:00: respiratory mg) by [place] [id number] tract mouth MD every 8 Anderso (eight) n hours as Cancer needed for Center diarrhea. Buy over the counter loperamide Yes Aspiration 2mg Take 1 Univers (IMODIUM) 2 8-31 into lower capsule (2 ity of mg capsule 00:00: respiratory mg) by [place] [address] tract mouth MD every 8 Anderso (eight) n hours as Cancer needed for Center diarrhea. Buy over the counter loperamide Yes Aspiration 2mg Take 1 Univers (IMODIUM) 2 8-31 into lower capsule (2 ity of mg capsule 00:00: respiratory mg) by [place] [address] tract mouth MD every 8 [place]o (eight) n hours as Cancer needed for Center diarrhea. Buy over the counter loperamide Yes Aspiration 2mg Take 1 Univers (IMODIUM) 2 8-31 into lower capsule (2 ity of mg capsule 00:00: respiratory mg) by [place] [address] tract mouth MD every 8 [place]o (eight) n hours as Cancer needed for Center diarrhea. Buy over the counter loperamide Yes Aspiration 2mg Take 1 Univers (IMODIUM) 2 8-31 into lower capsule (2 ity of mg capsule 00:00: respiratory mg) by [place] [address] tract mouth MD every 8 Anderso (eight) n hours as Cancer needed for Center diarrhea. Buy over the counter loperamide Yes Aspiration 2mg Take 1 Univers (IMODIUM) 2 8-31 into lower capsule (2 ity of mg capsule 00:00: respiratory mg) by [place] [address] tract mouth MD every 8 Anderso (eight) [...] 12 Anderso syringe pulmonale (twelve) n hours. [facility] enoxaparin 2021- No Other 50mg Inject 0.5 Univers (Lovenox) 02-2711 pulmonary mL (50 mg) ity of 60 mg/0.6 00:00: 00:00 embolism under the [place] mL 00 :00 with acute skin every MD prefilled cor 12 Anderso syringe pulmonale (twelve) n hours. [facility] enoxaparin 2021- No Other 50mg [...] 12 [place] syringe pulmonale (twelve) n hours. [facility] enoxaparin 2021- No Other 50mg [...] tablet hours as n needed Cancer (pain). [place] OLANZapine 2020- No Adjustment 2.5mg Take 1 [...] tablet hours as n needed Cancer (pain). [facility] Yes Aspiration 1{tbl} Take 1 Univers n tab 7-23 into lower tablet by ity of tablet 00:00: respiratory mouth [place] 00 tract daily. MD Fuentes zimmerman [facility] [place] Yes Aspiration 1{tbl} Take 1 Univers n tab 7-23 into lower tablet by ity of tablet 00:00: respiratory mouth [place] 00 tract daily. MD Fuentes zimmerman [facility] [place] Yes Aspiration 1{tbl} Take 1 Univers n tab 7-23 into lower tablet by ity of tablet 00:00: respiratory mouth [place] 00 tract daily. MD Fuentes zimmerman [facility] [place] Yes Aspiration 1{tbl} Take 1 Univers n tab 7-23 into lower tablet by ity of tablet 00:00: respiratory mouth [place] 00 tract daily. MD Fuentes zimmerman [facility] [place] Yes Aspiration 1{tbl} Take 1 Univers n tab 7-23 into lower tablet by ity of tablet 00:00: respiratory mouth [place] 00 tract daily. MD Fuentes zimmerman [facility] [place] Yes Aspiration 1{tbl} Take 1 Univers n tab 7-23 into lower tablet by ity of tablet 00:00: respiratory mouth [place] 00 tract daily. MD Fuentes zimmerman [facility] [place] Yes Aspiration 1{tbl} Take 1 Univers n tab 7-23 into lower tablet by ity of tablet 00:00: respiratory mouth [place] 00 tract daily. MD Fuentes zimmerman [facility] [place] Yes Aspiration 1{tbl} Take 1 Univers n tab 7-23 into lower tablet by ity of tablet 00:00: respiratory mouth [place] 00 tract daily. MD Fuentes zimmerman [facility] [place] Yes Aspiration 1{tbl} Take 1 Univers n tab 7-23 into lower tablet by ity of tablet 00:00: respiratory mouth [place] 00 tract daily. MD Fuentes zimmerman [facility] ferrous 2021- No 1{tbl} Take 1 Unive rs sulfate 325 7-22 05-17 tablet by it y of (65 FE) MG 00:00: 00:00 mouth [place] EC tablet 00 :00 daily. MD Fuentes zimmerman [facility] ferrous 2021- No 1{tbl} Take 1 Unive rs sulfate 325 7-22 05-17 tablet by it y of (65 FE) MG 00:00: 00:00 mouth [place] EC tablet 00 :00 daily. MD Fuentes zimmerman [facility] ferrous 2021- No 1{tbl} Take 1 Unive rs sulfate 325 7-22 05-17 tablet by it y of (65 FE) MG 00:00: 00:00 mouth [place] EC tablet 00 :00 daily. MD Funetes zimmerman [facility] ferrous 2021- No 1{tbl} Take 1 Unive rs sulfate 325 7-22 05-17 tablet by it y of (65 FE) MG 00:00: 00:00 mouth [place] EC tablet 00 :00 daily. MD Fuentes zimmerman [facility] ferrous 2021- No 1{tbl} Take 1 Unive rs sulfate 325 7-22 05-17 tablet by it y of (65 FE) MG 00:00: 00:00 mouth [place] EC tablet 00 :00 daily. MD Fuentes zimmerman [facility] ferrous 2021- No 1{tbl} Take 1 Unive rs sulfate 325 7-22 05-17 tablet by it y of (65 FE) MG 00:00: 00:00 mouth [place] EC tablet 00 :00 daily. MD Fuentes zimmerman [facility] ferrous 2021- No 1{tbl} Take 1 Unive rs sulfate 325 7-22 05-17 tablet by it y of (65 FE) MG 00:00: 00:00 mouth [place] EC tablet 00 :00 daily. MD Fuentes zimmerman [facility] 2021- No 1{tbl} Take 1 Unive rs sulfate 325 7- 05-17 tablet by it y of (65 FE) MG 00:00: 00:00 mouth [place] EC tablet 00 :00 daily. 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 [facility] ipratropium 2021- No Pneumocysto USE 1 VIAL [...] MD every 12 [place] (twelve) n hours. [facility] 2021- No Emphysema 600mg Take 1 Univers (MUCINEX) 10-08 tablet ity of 600 mg 12 00:00: 04:59 (600 mg) [place] hr tablet 00 :00 by mouth MD every 12 [place] (twelve) n hours. [facility] 2021- No Emphysema 600mg Take 1 Univers (MUCINEX) 10-08 tablet ity of 600 mg 12 00:00: 04:59 (600 mg) [place] hr tablet 00 :00 by mouth MD every 12 [place] (twelve) n hours. [facility] 2021- No Emphysema 600mg Take 1 Univers (MUCINEX) 10-08 tablet ity of 600 mg 12 00:00: 04:59 (600 mg) [place] hr tablet 00 :00 by mouth MD every 12 [place] (twelve) n hours. [facility] 2021- No Emphysema 600mg Take 1 Univers (MUCINEX) 10-08 tablet ity of 600 mg 12 00:00: 04:59 (600 mg) [place] hr tablet 00 :00 by mouth MD every 12 [place] (twelve) n hours. [facility] 2021- No Emphysema 600mg Take 1 Univers (MUCINEX) 10-08 tablet ity of 600 mg 12 00:00: 04:59 (600 mg) [place] hr tablet 00 :00 by mouth MD every 12 [place] (twelve) n hours. [facility] 2021- No Emphysema 600mg Take 1 Univers (MUCINEX) 10-08 tablet ity of 600 mg 12 00:00: 04:59 (600 mg) [place] hr tablet 00 :00 by mouth MD every 12 Anderso (twelve) n hours. 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 Bakari o ia n [facility] Yes Type 2 1{each} 1 each by [facility] 10-06 diabetes miscellane ity o f 00:00: [place] route [place] 00 with twice MD hyperglycem daily. Bakari zimmerman [facility] lancets Yes Type 2 1{each} 1 each by [facility] 10-06 diabetes miscellane ity o f 00:00: [place] route [place] 00 with twice MD hyperglycem daily. Bakari zimmerman [facility] lancets Yes Type 2 1{each} 1 each by [facility] 10-06 diabetes miscellane ity o f 00:00: [place]us route [place] 00 with twice MD hyperglycem daily. Bakari zimmerman [facility] lancets Yes Type 2 1{each} 1 each by [facility] 10-06 diabetes miscellane ity o f 00:00: [place]us route [place] 00 with twice MD hyperglycem daily. Bakari zimmerman [facility] lancets Yes Type 2 1{each} 1 each by [facility] 10-06 diabetes miscellane ity o f 00:00: [place] route [place] with twice MD hyperglycem daily. Bakari zimmerman [facility] lancets Yes Type 2 1{each} 1 each by [facility] 10-06 diabetes miscellane ity o f 00:00: [place]us route [place] 00 with twice MD hyperglycem daily. Bakari zimmerman [facility] lancets Yes Type 2 1{each} 1 each by [facility] 10-06 diabetes miscellane ity o f 00:00: [place] route [place] 00 with twice MD hyperglycem daily. Bakari zimmerman [facility] lancets Yes Type 2 1{each} 1 each by [facility] 10-06 diabetes miscellane ity o f 00:00: [place] route [place] 00 with twice MD hyperglycem daily. Bakari zimmerman [facility] Immunizations Ordered Immunization Filled Immunization Date Status Commen ts Source Name Name Pneumococcal 2022-03-24 Completed University o f Polysaccharide 00:00:00 Willis Fernandes [facility] Pneumococcal 2022-03-24 Completed University o f Polysaccharide 00:00:00 [place] MD Isaac Dom [facility] Pneumococcal 2022-03-24 Completed University o f Polysaccharide 00:00:00 [place] [facility] Pneumococcal 2022-03-24 Completed University o f Polysaccharide 00:00:00 [place] [facility] [place] remdesivir 2020-08-22 Completed University of 00:00:00 [place] [facility] Pa[place] remdesivir 2020-08-22 Completed University of 00:00:00 [place] [facility] [place] remdesivir 2020-08-22 Completed University of 00:00:00 [place] [facility] remdesivir 2020-08-22 Completed University of 00:00:00 [place] [facility] remdesivir 2020-08-22 Completed University of 00:00:00 [place] [facility] r Paige remdesivir 2020-08-22 Completed University of 00:00:00 [place] [facility] remdesivir 2020-08-22 Completed University of 00:00:00 [place] [facility] remdesivir 2020-08-22 Completed University of 00:00:00 [place] [facility] remdesivir 2020-08-22 Completed University of 00:00:00 [facility] remdesivir 2020-08-22 Completed University of 00:00:00 [place] [facility] r Paige remdesivir 2020-08-22 Completed University of 00:00:00 [place] [facility] r Paige remdesivir 2020-08-22 Completed University of 00:00:00 [place] [facility] r [place] remdesivir 2020-08-22 Completed University of 00:00:00 [place] [facility] remdesivir 2020-08-22 Completed University of 00:00:00 [place] [facility] r Paige remdesivir 2020-08-22 Completed University of 00:00:00 [place] [facility] remdesivir 2020-08-22 Completed University of 00:00:00 [place] [facility] remdesivir 2020-08-22 Completed University of 00:00:00 [place] [facility] remdesivir 2020-08-22 Completed University of 00:00:00 [place] [facility] r Paige remdesivir 2020-08-21 Completed University of 00:00:00 [place] [facility] remdesivir 2020-08-21 Completed [facility] of 00:00:00 [place] [facility] remdesivir 2020-08-21 Completed University of 00:00:00 [place] [facility] remdesivir 2020-08-21 Completed [facility] of 00:00:00 [place] [facility] remdesivir 2020-08-21 Completed [facility] of 00:00:00 [place] [facility] remdesivir 2020-08-21 Completed University of 00:00:00 [place] [facility] remdesivir 2020-08-21 Completed University of 00:00:00 [place] [facility] remdesivir 2020-08-21 Completed University of 00:00:00 [place] [facility] remdesivir 2020-08-21 Completed [facility] of 00:00:00 [place] [facility] remdesivir 2020-08-20 Completed University of 00:00:00 [place] [facility] remdesivir 2020-08-20 Completed University of 00:00:00 [place] [facility] remdesivir 2020-08-20 Completed University of 00:00:00 [place] [facility] remdesivir 2020-08-20 Completed [facility] 00[facility] [place] [facility] 2020-08-20 Completed [facility] 00:[facility] [place] [facility] rem[facility] 2020-08-20 Completed [facility] 00:[facility]00 [place] [facility] rem[facility] 2020-08-20 Completed [facility] 00:[facility]:00 [place] [facility] rem[facility] 2020-08-20 Completed [facility] 00:[facility]:00 [place] [facility] rem[facility] 2020-08-20 Completed [facility] 00:[facility]:00 [place] [facility] rem[facility] 2020-08-19 Completed [facility] 00[facility] [place] [facility] [facility] rem[facility] 2020-08-19 Completed [facility] 00:00:00 [place] [facility] rem[facility] 2020-08-19 Completed [facility] 00:[facility] [place] [facility] [facility] rem[facility] 2020-08-19 Completed [facility] 00:[facility]:00 [place] [facility] remdes[facility] 2020-08-19 Completed [facility] 00:[facility]:00 [place] [facility] rem[facility] 2020-08-19 Completed [facility] 00:[facility]:00 [place] [facility] remdes[facility] 2020-08-19 Completed [facility] 00:[facility]:00 [place] [facility] remdesivir 2020-08-19 Completed [facility] 00:[facility]:00 [place] [facility] remdes[facility] 2020-08-19 Completed [facility] 00:[facility]:00 [place] [facility] rem[facility] 2020-08-18 Completed [facility] 00:00:00 [place] [facility] rem[facility] 2020-08-18 Completed [facility] 00:[facility]:00 [place] [facility] remdes[facility] 2020-08-18 Completed [facility] 00:00:00 [place] [facility] remdes[facility] 2020-08-18 Completed [facility] 00:00:00 [place] [facility] remdes[facility] 2020-08-18 Completed [facility] 00:00:00 [place] [facility] remdesivir 2020-08-18 Completed [facility] 00:00:00 [place] [facility] remdes[facility] 2020-08-18 Completed [facility] 00:00:00 [place] [facility] remdes[facility] 2020-08-18 Completed [facility] 00:00:00 [place] [facility] rem[facility] 2020-08-18 Completed [facility] 00:00:00 [place] [facility] remdes[facility] 2020-08-03 Completed [facility] 00:00:00 [place] [facility] remdes[facility] 2020-08-03 Completed [facility] 00:00:00 [place] [facility] remdes[facility] 2020-08-03 Completed [facility] 00:00:00 [place] [facility] remdes[facility] 2020-08-03 Completed [facility] 00:00:00 [place] [facility] remdes[facility] 2020-08-03 Completed [facility] 00:00:00 [place] [facility] remdes[facility] 2020-08-03 Completed [facility] 00:00:00 [place] [facility] remdes[facility] 2020-08-03 Completed [facility] 00:00:00 [place] [facility] rem[facility] 2020-08-03 Completed [facility] 00:00:00 [place] [facility] remdes[facility] 2020-08-03 Completed [facility] 00:00:00 [place] [facility] remdes[facility] 2020-08-02 Completed [facility] 00:00:00 [place] [facility] remdesivir 2020-08-02 Completed [facility] 00:00:00 [place] [facility] remdesivir 2020-08-02 Completed [facility] 00:00:00 [place] [facility] remdes[facility] 2020-08-02 Completed [facility] 00:00:00 [place] [facility] remdes[facility] 2020-08-02 Completed [facility] 00:00:00 [place] [facility] remdes[facility] 2020-08-02 Completed [facility] 00:00:00 [place] [facility] remdesivir 2020-08-02 Completed [facility] 00:00:00 [place] [facility] remdes[facility] 2020-08-02 Completed [facility] 00:00:00 [place] [facility] remdes[facility] 2020-08-02 Completed [facility] 00:00:00 [place] [facility] remdes[facility] 2020-08-02 Completed [facility] 00:00:00 [facility] rem[facility] 2020-08-02 Completed [facility] 00:00:00 [facility] remdes[facility] 2020-08-02 Completed [facility] 00:00:00 [facility] remdes[facility] 2020-08-02 Completed [facility] 00:00:00 [facility] remdes[facility] 2020-08-02 Completed [facility] 00:00:00 [place] [facility] remdes[facility] 2020-08-02 Completed [facility] 00:00:00 [facility] remdes[facility] 2020-08-02 Completed [facility] 00:00:00 [place] [facility] remdesivir 2020-08-02 Completed [facility] 00:00:00 [facility] remdes[facility] 2020-08-02 Completed [facility] 00:00:00 [place] [facility] remdesivir 2020-08-01 Completed [facility] 00:00:00 [place] [facility] remdes[facility] 2020-08-01 Completed [facility] 00:00:00 [place] [facility] remdes[facility] 2020-08-01 Completed [facility] 00:00:00 [place] [facility] remdes[facility] 2020-08-01 Completed [facility] 00:00:00 [place] [facility] remdes[facility] 2020-08-01 Completed [facility] 00:00:00 [place] [facility] remdes[facility] 2020-08-01 Completed [facility] 00:00:00 [place] [facility] remdesivir 2020-08-01 Completed [facility] 00:00:00 [place] [facility] remdesivir 2020-08-01 Completed [facility] 00:00:00 [place] [facility] remdes[facility] 2020-08-01 Completed [facility] 00:00:00 [place] [facility] remdesivir 2020-07-31 Completed [facility] 00:00:00 [place] [facility] rem[facility] 2020-07-31 Completed [facility] 00:00:00 [place] [facility] remdesivir 2020-07-31 Completed [facility] 00:00:00 [facility] remdesivir 2020-07-31 Completed [facility] 00:00:00 [facility] rem[facility] 2020-07-31 Completed [facility] 00:00:00 [facility] remdesivir 2020-07-31 Completed [facility] 00:00:00 [facility] remdes[facility] 2020-07-31 Completed [facility] 00:00:00 [place] [facility] remdes[facility] 2020-07-31 Completed [facility] 00:00:00 [place] [facility] remdes[facility] 2020-07-31 Completed [facility] 00:00:00 [place] [facility] remdes[facility] 2020-07-30 Completed [facility] 00:00:00 [place] [facility] remdesivir 2020-07-30 Completed [facility] 00:00:00 [place] [facility] remdesivir 2020-07-30 Completed [facility]:00 [facility] 2020-07-30 Completed [facility] 00:00:00 [place] Isaac [facility] remdesivir 2020-07-30 Completed [facility] 00:00:00 [place] [facility] remdesivir 2020-07-30 Completed [facility] 00:00:00 [place] Isaac [facility] remdesivir 2020-07-30 Completed [facility] 00:00:00 [place] Isaac [facility] remdesivir 2020-07-30 Completed [facility] 00:00:00 [place] Isaac [facility] remdesivir 2020-07-30 Completed [facility] 00:00:00 [place] Isaac [facility] Influenza Split High 2020-03-29 Completed [facility] ersity of Dose Preservative 00:00:00 [place] M D Free [facility] Zoster Recombinant 2020-03-29 Completed [facility] 00:00:00 Willis Fernandes [facility] Influenza Split High 2020-03-29 Completed [facility] ersity of Dose Preservative 00:00:00 [place] D [facility]herelle [facility] Zoster Recombinant 2020-03-29 Completed [facility]iver [facility] of 00:00:00 Willis Fernandes [facility] Influenza Split High 2020-03-29 Completed Univ ersity of Dose Preservative 00:00:00 [place] [facility] Zoster Recombinant 2020-03-29 Completed [facility]iver [facility] of 00:00:00 Willis Fernandes [facility] Influenza Split High 2020-03-29 Completed [facility] ersity of Dose Preservative 00:00:00 [place] [facility] Zoster Recombinant 2020-03-29 Completed Univer sity of 00:00:00 Willis Fernandes [facility] Influenza Split High 2020-03-29 Completed [facility] ersity of Dose Preservative 00:00:00 [place] [facility] Zoster Recombinant 2020-03-29 Completed Univer [facility] of 00:00:00 Willis Fernandes [facility] Influenza Split High 2020-03-29 Completed Univ ersity of Dose Preservative 00:00:00 [place] M D Free [facility] Zoster Recombinant 2020-03-29 Completed Univer [facility]ity of 00:00:00 Willis Fernandes [facility] Influenza Split High 2020-03-29 Completed Univ ersity of Dose Preservative 00:00:00 [place] [facility] Zoster Recombinant 2020-03-29 Completed [facility] 00:00:00 [place] [facility] [facility] Influenza Split High 2020-03-29 Completed [facility] ers[facility] of Dose Preservative 00:00:00 [place] M D Free [facility] Zoster Recombinant 2020-03-29 Completed [facility] 00:00:00 [place] [facility] [facility] Influenza Split High 2020-03-29 Completed Univ ersity of Dose Preservative 00:00:00 [place] M D Free [facility] Zoster Recombinant 2020-03-29 Completed [facility]iver [facility] of 00:00:00 [place] Fernandes r Paige Vital Signs Vital Name Observation Time Observation [...] Willis cou[facility]terrson [facility] Body height 2022-06-07 13:11:00 163 [...] CHEST W CONTRAST 2022-09-13 13:57:00 Stella Clark [facility] POC CREATININE 2022-09-13 13:38:00 Stella Clark [facility] COMPLETE BLOOD COUNT W/ 2022-09-13 13:10:00 [facility] COMPREHENSIVE METABOLIC 2022-09-13 13:10:00 [facility] PAN[facility] Results CBC 2022-09-13 13:10:00 [place] Fernanda [place] [facility] MANUAL DIFFERENTIAL 2022-09-13 13:10:00 Maria Fernanda [place] [facility] GLUCOSE LEVEL 2022-09-13 13:10:00 Maria Fernanda [place] [facility] BLOOD UREA NITROGEN 2022-09-13 13:10:00 Maria Fernanda [place] [facility] ELECTROLYTE PANEL 2022-09-13 13:10:00 Maria Fernanda [facility] SERUM CREATININE 2022-09-13 13:10:00 Maria Fernanda [place] [facility] .GLOMERULAR FILTRATION 2022-09-13 13:10:00 [facility] CALCIUM LEVEL TOTAL 2022-09-13 13:10:00 Maria Fernanda [place] [facility] ALBUMIN LEVEL 2022-09-13 13:10:00 Maria Fernanda [place] [facility] ALKALINE PHOSPHATASE 2022-09-13 13:10:00 [facility] ALANINE AMINOTRANSFERASE 2022-09-13 13:10:00 Maria Fernanda [place] [facility] ASPARTATE AMINOTRANSFERASE 2022-09-13 13:10:00 Maria Fernanda [place] [facility] TOTAL PROTEIN 2022-09-13 13:10:00 Maria Fernanda [place] [facility] FRACTIONATED BILIRUBIN 2022-09-13 13:10:00 [place] Fernanda [place] [facility] COMPLETE BLOOD COUNT W/ 2022-06-07 15:54:00 Stella Clark Un iversity [facility] DIFFERENTIAL [facility] COMPREHENSIVE METABOLIC 2022-06-07 15:54:00 [facility] FREE THYROXINE 2022-06-07 15:54:00 Stella Clark [facility] MAGNESIUM LEVEL 2022-06-07 15:54:00 Stella Clark [facility] TOTAL T3 2022-06-07 15:54:00 Stella Clark [facility] THYROID STIMULATING 2022-06-07 15:54:00 Stella Clark [facility] HORMONE [facility] URIC ACID 2022-06-07 15:54:00 Stella Clark [facility] Results CBC 2022-06-07 15:54:00 Stella Clark [facility] MANUAL DIFFERENTIAL 2022-06-07 15:54:00 Stella Clark [facility] GLUCOSE LEVEL 2022-06-07 15:54:00 Stella Clark [facility] BLOOD UREA NITROGEN 2022-06-07 15:54:00 Stella Clark [facility] SERUM CREATININE 2022-06-07 15:54:00 Stella Clark [facility] .GLOMERULAR FILTRATION 2022-06-07 15:54:00 [facility] CALCIUM LEVEL TOTAL 2022-06-07 15:54:00 Stella Clark [facility] ALBUMIN LEVEL 2022-06-07 15:54:00 Stella Clark [facility] ALKALINE PHOSPHATASE 2022-06-07 15:54:00 [facility] ALANINE AMINOTRANSFERASE 2022-06-07 15:54:00 [facility] ASPARTATE AMINOTRANSFERASE 2022-06-07 15:54:00 Stella Clark [facility] TOTAL PROTEIN 2022-06-07 15:54:00 Stella Clark [facility] FRACTIONATED BILIRUBIN 2022-06-07 15:54:00 [facility]EL 2022-06-07 15:54:00 Stella Clark [facility] PETCT SUBSEQUENT TREATMENT 2022-06-07 15:27:59 Stella Clark [facility] STRATEGY [facility] COMPLETE BLOOD COUNT W/ 2021-10-24 10:53:00 Tod Glass [facility] DIFFERENTIAL [facility] COMPREHENSIVE METABOLIC 2021-10-24 10:53:00 Tod Glass [facility] PANEL [facility] MAGNESIUM LEVEL 2021-10-24 10:53:00 Tod Glass V. [facility] PHOSPHORUS LEVEL 2021-10-24 10:53:00 Tod Glass [facility] Results CBC 2021-10-24 10:53:00 Tod Glass V. [facility] MANUAL DIFFERENTIAL 2021-10-24 10:53:00 Tod Glass [facility] GLUCOSE LEVEL 2021-10-24 10:53:00 Tod Glass V. [facility] BLOOD UREA NITROGEN 2021-10-24 10:53:00 Tod Glass [facility]. [facility] ELECTROLYTE PANEL 2021-10-24 10:53:00 Tod Glass V. [facility] SERUM CREATININE 2021-10-24 10:53:00 Tod Glass [facility]. [facility] .GLOMERULAR FILTRATION 2021-10-24 10:53:00 Tod Glass [facility] RATE [facility] CALCIUM LEVEL TOTAL 2021-10-24 10:53:00 Tod Glass V. [facility] ALBUMIN LEVEL 2021-10-24 10:53:00 Tod Glass V. [facility] ALKALINE PHOSPHATASE 2021-10-24 10:53:00 Tod Glass V. [facility] ALANINE AMINOTRANSFERASE 2021-10-24 10:53:00 [facility] ASPARTATE AMINOTRANSFERASE 2021-10-24 10:53:00 [facility] TOTAL PROTEIN 2021-10-24 10:53:00 Tod Glass V. [facility] FRACTIONATED BILIRUBIN 2021-10-24 10:53:00 [facility] OSCILLATORY PEP 2021-10-23 13:00:13 Tod Glass V. [facility] COMPLETE BLOOD COUNT W/ 2021-10-23 12:28:00 Tod Glass V. [facility] DIFFERENTIAL [facility] COMPREHENSIVE METABOLIC 2021-10-23 12:28:00 Tod Glass [facility] PANEL [facility] MAGNESIUM LEVEL 2021-10-23 12:28:00 Tod Glass V. [facility] PHOSPHORUS LEVEL 2021-10-23 12:28:00 Tod Glass [facility]. [facility] Results CBC 2021-10-23 12:28:00 Tod Glass V. [facility] MANUAL DIFFERENTIAL 2021-10-23 12:28:00 Tod Glass V. [facility] GLUCOSE LEVEL 2021-10-23 12:28:00 Tod Glass V. [facility] BLOOD UREA NITROGEN 2021-10-23 12:28:00 Tod Glass V. [facility] ELECTROLYTE PANEL 2021-10-23 12:28:00 Tod Glass V. [facility] SERUM CREATININE 2021-10-23 12:28:00 Tod Glass V. [facility] .GLOMERULAR FILTRATION 2021-10-23 12:28:00 Tod Glass [facility] RATE [facility] CALCIUM LEVEL TOTAL 2021-10-23 12:28:00 Tod Glass V. [facility] ALBUMIN LEVEL 2021-10-23 12:28:00 Tod Glass V. [facility] ALKALINE PHOSPHATASE 2021-10-23 12:28:00 Tod Glass V. [facility] ALANINE AMINOTRANSFERASE 2021-10-23 12:28:00 Tod Glass V. [facility] ASPARTATE AMINOTRANSFERASE 2021-10-23 12:28:00 [facility] TOTAL PROTEIN 2021-10-23 12:28:00 Tod Glass V. [facility] FRACTIONATED BILIRUBIN 2021-10-23 12:28:00 Tod Glass [facility] OSCILLATORY PEP 2021-10-22 19:00:57 Tod Glass V. [facility] OSCILLATORY PEP 2021-10-22 13:00:14 Tod Glass V. [facility] COMPLETE BLOOD COUNT W/ 2021-10-22 11:48:00 Tod Glass V. [facility] DIFFERENTIAL [facility] COMPREHENSIVE METABOLIC 2021-10-22 11:48:00 Tod Glass V. [facility] MAGNESIUM LEVEL 2021-10-22 11:48:00 Tod Glass V. [facility] PHOSPHORUS LEVEL 2021-10-22 11:48:00 Tod Glass V. [facility] IGG SUBCLASSES, SERUM 2021-10-22 11:48:00 Tod Glass [facility] IMMUNOGLOBULIN G SERUM 2021-10-22 11:48:00 [facility] IMMUNOGLOBULIN A SERUM 2021-10-22 11:48:00 Tod Glass [facility] Results CBC 2021-10-22 11:48:00 Tod Glass V. [facility] MANUAL DIFFERENTIAL 2021-10-22 11:48:00 Tod Glass V. [facility] GLUCOSE LEVEL 2021-10-22 11:48:00 Tod Glass V. [facility] BLOOD UREA NITROGEN 2021-10-22 11:48:00 Tod Glass V. [facility] ELECTROLYTE PANEL 2021-10-22 11:48:00 Tod Glass V. [facility] SERUM CREATININE 2021-10-22 11:48:00 Tod Glass V. [facility] .GLOMERULAR FILTRATION 2021-10-22 11:48:00 Tod Glass [facility] CALCIUM LEVEL TOTAL 2021-10-22 11:48:00 Tod Glass V. [facility] ALBUMIN LEVEL 2021-10-22 11:48:00 Tod Glass V. [facility] ALKALINE PHOSPHATASE 2021-10-22 11:48:00 Tod Glass V. [facility] ALANINE AMINOTRANSFERASE 2021-10-22 11:48:00 Tod Glass V. [facility] ASPARTATE AMINOTRANSFERASE 2021-10-22 11:48:00 Tod [facility] TOTAL PROTEIN 2021-10-22 11:48:00 Tod Glass V. [facility] FRACTIONATED BILIRUBIN 2021-10-22 11:48:00 Tod Glasse [facility] OSCILLATORY PEP 2021-10-22 01:00:11 Tod Glass V. [facility] XR CHEST 1 VW 2021-10-21 20:44:00 Tod Glass V. [facility] BLOODCULTURE 2021-10-21 14:09:00 Tod Glass V. [facility] FUNGAL BLOODCULTURE 2021-10-21 14:09:00 Tod Glass V. [facility] COMPLETE BLOOD COUNT W/ 2021-10-21 11:02:00 Tod Glass V. [facility] DIFFERENTIAL [facility] COMPREHENSIVE METABOLIC 2021-10-21 11:02:00 Tod Glass V. [facility] PANEL [facility] MAGNESIUM LEVEL 2021-10-21 11:02:00 Tod Glass V. [facility] PHOSPHORUS LEVEL 2021-10-21 11:02:00 Tod Glass V. [facility] Results CBC 2021-10-21 11:02:00 Tod Glass V. [facility] MANUAL DIFFERENTIAL 2021-10-21 11:02:00 Tod Glass V. [facility] GLUCOSE LEVEL 2021-10-21 11:02:00 Tod Glass V. [facility] BLOOD UREA NITROGEN 2021-10-21 11:02:00 Tod Glass V. [facility] ELECTROLYTE PANEL 2021-10-21 11:02:00 Tod Glass V. [facility] SERUM CREATININE 2021-10-21 11:02:00 Tod Glass V. [facility] .GLOMERULAR FILTRATION 2021-10-21 11:02:00 Tod Glass [facility] RATE [facility] CALCIUM LEVEL TOTAL 2021-10-21 11:02:00 Tod Glass [facility] ALBUMIN LEVEL 2021-10-21 11:02:00 Tod Glass V. [facility] ALKALINE PHOSPHATASE 2021-10-21 11:02:00 Tod Glass V. [facility] ALANINE AMINOTRANSFERASE 2021-10-21 11:02:00 Tod Glass V. [facility] ASPARTATE AMINOTRANSFERASE 2021-10-21 11:02:00 Tod [facility] TOTAL PROTEIN 2021-10-21 11:02:00 Tod Glass V. [facility] FRACTIONATED BILIRUBIN 2021-10-21 11:02:00 [facility] EKG, 12-LEAD (PORTABLE) 2021-10-21 00:00:00 Tod Glass V. [facility] XR ABDOMEN 1 VW PORTABLE 2021-10-20 19:19:00 Tod Glass V. [facility] OSCILLATORY PEP 2021-10-20 19:00:49 Tod Glass V. [facility] OSCILLATORY PEP 2021-10-20 13:00:11 Tod Glass V. [place] [facility] COMPLETE BLOOD COUNT W/ 2021-10-20 11:10:00 Tod Glass V. [facility] DIFFERENTIAL [facility] COMPREHENSIVE METABOLIC 2021-10-20 11:10:00 Tod Glass V. [facility] PANEL [facility] MAGNESIUM LEVEL 2021-10-20 11:10:00 Tod Glass V. [facility] PHOSPHORUS LEVEL 2021-10-20 11:10:00 Tod Glass V. [facility] Results CBC 2021-10-20 11:10:00 Tod Glass V. [facility] MANUAL DIFFERENTIAL 2021-10-20 11:10:00 Tod lGass V. [facility] GLUCOSE LEVEL 2021-10-20 11:10:00 Tod Glass V. [facility] BLOOD UREA NITROGEN 2021-10-20 11:10:00 Tod Glass V. [facility] ELECTROLYTE PANEL 2021-10-20 11:10:00 Tod Glass V. [facility] SERUM CREATININE 2021-10-20 11:10:00 Tod Glass V. [facility] .GLOMERULAR FILTRATION 2021-10-20 11:10:00 Tod Glass [facility] CALCIUM LEVEL TOTAL 2021-10-20 11:10:00 Tod Glass V. [facility] ALBUMIN LEVEL 2021-10-20 11:10:00 Tod Glass V. [facility] ALKALINE PHOSPHATASE 2021-10-20 11:10:00 Tod Glass V. [facility] ALANINE AMINOTRANSFERASE 2021-10-20 11:10:00 [facility] ASPARTATE AMINOTRANSFERASE 2021-10-20 11:10:00 [facility] TOTAL PROTEIN 2021-10-20 11:10:00 Tod Glass V. [facility] FRACTIONATED BILIRUBIN 2021-10-20 11:10:00 Tod Glass [facility] OSCILLATORY PEP 2021-10-20 01:00:09 Tod Glass V. [facility] OSCILLATORY PEP 2021-10-19 19:00:53 Tod Glass V. [facility] PATHOLOGY BIOPSY 2021-10-19 18:35:[address] [facility] INTERPRETATION [facility] UPPER GASTROINTESTINAL 2021-10-19 18:14:00 Edwige Rod [facility] ENDOSCOPY OF ESOPHAGUS, MD Levi darden Cancer STOMACH, AND DUODENUM WITH Cente r BIOPSY OSCILLATORY PEP 2021-10-19 14:01:42 Tod Glass V. [facility] COMPLETE BLOOD COUNT W/ 2021-10-19 12:18:00 Tod Glass V. [facility] DIFFERENTIAL [facility] COMPREHENSIVE METABOLIC 2021-10-19 12:18:00 Tod Glass V. [facility] PANEL [facility] MAGNESIUM LEVEL 2021-10-19 12:18:00 Tod Glass V. [facility] PHOSPHORUS LEVEL 2021-10-19 12:18:00 Tod Glass V. [facility] Results CBC 2021-10-19 12:18:00 Tod Glass V. [facility] MANUAL DIFFERENTIAL 2021-10-19 12:18:00 Tod Glass V. [facility] GLUCOSE LEVEL 2021-10-19 12:18:00 Tod Glass V. [facility] BLOOD UREA NITROGEN 2021-10-19 12:18:00 Tod Glass V. [facility] ELECTROLYTE PANEL 2021-10-19 12:18:00 Tod Glass V. [facility] SERUM CREATININE 2021-10-19 12:18:00 Tod Glass V. [facility] .GLOMERULAR FILTRATION 2021-10-19 12:18:00 Tod Glass V. [facility] RATE [facility] CALCIUM LEVEL TOTAL 2021-10-19 12:18:00 Tod Glass V. [facility] ALBUMIN LEVEL 2021-10-19 12:18:00 Tod Glass V. [facility] ALKALINE PHOSPHATASE 2021-10-19 12:18:00 Tod Glass V. [facility] ALANINE AMINOTRANSFERASE 2021-10-19 12:18:00 [facility]. [facility] ASPARTATE AMINOTRANSFERASE 2021-10-19 12:18:00 [facility]. [facility] TOTAL PROTEIN 2021-10-19 12:18:00 Tod Glass V. [facility] FRACTIONATED BILIRUBIN 2021-10-19 12:18:00 Tod Glass V. [facility] XR CHEST 1 VW 2021-10-18 21:15:00 Tod Glass V. [facility] POC GLUCOSE SCREEN 2021-10-18 11:47:00 Tod Glass V. [facility] COMPLETE BLOOD COUNT W/ 2021-10-18 09:25:00 Tod Glass V. [facility] DIFFERENTIAL [facility] COMPREHENSIVE METABOLIC 2021-10-18 09:25:00 Tod Glass V. [facility] PANEL [facility] MAGNESIUM LEVEL 2021-10-18 09:25:00 Tod Glass V. [facility] PHOSPHORUS LEVEL 2021-10-18 09:25:00 Tod Glass V. [facility] Results CBC 2021-10-18 09:25:00 Tod Glass V. [facility] MANUAL DIFFERENTIAL 2021-10-18 09:25:00 Tod Glass V. [facility] GLUCOSE LEVEL 2021-10-18 09:25:00 Tod Glass V. [facility] BLOOD UREA NITROGEN 2021-10-18 09:25:00 Tod Glass V. [facility] ELECTROLYTE PANEL 2021-10-18 09:25:00 Tod Glass V. [facility] SERUM CREATININE 2021-10-18 09:25:00 Tod Glass V. [facility] .GLOMERULAR FILTRATION 2021-10-18 09:25:00 Tod Glass [facility] CALCIUM LEVEL TOTAL 2021-10-18 09:25:00 Tod Glass V. [facility] ALBUMIN LEVEL 2021-10-18 09:25:00 Tod Glass V. [facility] ALKALINE PHOSPHATASE 2021-10-18 09:25:00 Tod Glass V. [facility] ALANINE AMINOTRANSFERASE 2021-10-18 09:25:00 Tod Glass V. [facility] ASPARTATE AMINOTRANSFERASE 2021-10-18 09:25:00 Tod Glass V. [facility] TOTAL PROTEIN 2021-10-18 09:25:00 Tod Glass V. [facility] FRACTIONATED BILIRUBIN 2021-10-18 09:25:00 [facility] V. [facility] OSCILLATORY PEP 2021-10-18 07:00:10 Tod Glass V. [facility] OSCILLATORY PEP 2021-10-18 01:00:07 Tod Glass V. [facility] OSCILLATORY PEP 2021-10-17 19:01:02 Tod Glass V. [facility] VANCOMYCIN LEVEL TROUGH 2021-10-17 16:50:00 Tod Glass V. [facility] OSCILLATORY PEP 2021-10-17 14:31:30 Tod Glass V. [facility] FUNGITELL, SERUM 2021-10-17 08:59:00 Tod Glass V. [facility] COMPLETE BLOOD COUNT W/ 2021-10-17 08:59:00 Tod Galss V. [facility] DIFFERENTIAL [facility] COMPREHENSIVE METABOLIC 2021-10-17 08:59:00 Tod Glass V. [facility] PANEL [facility] MAGNESIUM LEVEL 2021-10-17 08:59:00 Tod Glass V. [facility] PHOSPHORUS LEVEL 2021-10-17 08:59:00 Tod Glass V. [facility] Results CBC 2021-10-17 08:59:00 Tod Glass V. [facility] MANUAL DIFFERENTIAL 2021-10-17 08:59:00 Tod Glass V. [facility] GLUCOSE LEVEL 2021-10-17 08:59:00 Tod Glass V. [facility] BLOOD UREA NITROGEN 2021-10-17 08:59:00 Tod Glass V. [facility] ELECTROLYTE PANEL 2021-10-17 08:59:00 Tod Glass V. [facility] SERUM CREATININE 2021-10-17 08:59:00 Tod Glass V. [facility] .GLOMERULAR FILTRATION 2021-10-17 08:59:00 Tod Glass V. [facility] RATE [facility] CALCIUM LEVEL TOTAL 2021-10-17 08:59:00 Tod Glass V. [facility] ALBUMIN LEVEL 2021-10-17 08:59:00 Tod Glass V. [facility] Center ALKALINE PHOSPHATASE 2021-10-17 08:59:00 Tod Glass V. [facility] ALANINE AMINOTRANSFERASE 2021-10-17 08:59:00 Tod Glass V. [facility] ASPARTATE AMINOTRANSFERASE 2021-10-17 08:59:00 [facility]. [facility] TOTAL PROTEIN 2021-10-17 08:59:00 Tod Glass V. [place] [facility] Center FRACTIONATED BILIRUBIN 2021-10-17 08:59:00 Tod Glass V. [facility] PROCALCITONIN 2021-10-17 08:59:00 Tod Glass V. [place] [facility] er [place]ige [place] MODIFIED BARIUM SWALLOW 2021-10-16 19:57:25 [facility]CH [facility] RESPIRATORY VIRAL PANEL, 2021-10-16 13:05:00 [facility] NASOPHARY[facility] SWAB [facility] RESPIRATORY PCR PANEL, MANUAL QA TESTER 2021-10-16 13:05:00 [facility] SWAB [facility] RESPIRATORY PCR PANEL PATH 2021-10-16 13:05:00 [facility] RE[facility] MRSA SCREENING CULTURE 2021-10-15 21:25:00 Felix [facility] TROPONIN T 2021-10-15 18:15:00 Bijan Verónica [place] [facility] CT CHEST PULMONARY 2021-10-15 17:58:06 Verónica Thakkar [facility] EMBOLISM CONTRAST [facility] LEGIONELLA URINE ANTIGEN 2021-10-15 17:17:00 Verónica Thakkar [facility] STREPTOCOCCUS PNEUMONIAE 2021-10-15 17:17:00 Bijan Verónica [facility] URINE ANTIGEN [facility] STREPTOCOCCAL URINE 2021-10-15 17:17:[address] [facility] ANTIGEN PATH REVIEW [facility] LEGIONELLA URINE ANTIGEN 2021-10-15 17:17:00 Verónica Thakkar [facility] FUNGITELL, SERUM 2021-10-15 16:43:00 Bijan [facility] COVID-19 (SARS-COV-2) 2021-10-15 15:08:00 Verónica Thakkar [facility] ASYMPTOMATIC-LT [facility] BLOODCULTURE 2021-10-15 15:08:00 Bijan [facility] LOWER RESPIRATORY CULTURE 2021-10-15 15:08:00 [facility] STAIN [facility] COMPREHENSIVE METABOLIC 2021-10-15 15:08:00 Bijan Verónica [facility] PANEL [facility] MAGNESIUM LEVEL 2021-10-15 15:08:00 Bijan [facility] PHOSPHORUS LEVEL 2021-10-15 15:08:00 Bijan [facility] LACTATE DEHYDROGENASE 2021-10-15 15:08:00 Bijan [facility] PROCALCITONIN 2021-10-15 15:08:00 Bijan [facility] TROPONIN T 2021-10-15 15:08:00 Bijan [facility] CREATINE KINASE 2021-10-15 15:08:00 Bijan [facility] CKMB 2021-10-15 15:08:00 Bijan [facility] NT PRO BNP 2021-10-15 15:08:00 Bijan [facility] COMPLETE BLOOD COUNT W/ 2021-10-15 15:08:00 Bijan Verónica [facility] DIFFERENTIAL [facility] PROTHROMBIN TIME 2021-10-15 15:08:00 Bijan [facility] APTT 2021-10-15 15:08:00 Bijan [facility] GLUCOSE LEVEL 2021-10-15 15:08:00 Bijan [facility] BLOOD UREA NITROGEN 2021-10-15 15:08:00 Bijan [facility] ELECTROLYTE PANEL 2021-10-15 15:08:00 Bijan [facility] SERUM CREATININE 2021-10-15 15:08:00 Bijan [facility] .GLOMERULAR FILTRATION 2021-10-15 15:08:00 [facility]ica [facility] RATE [facility] CALCIUM LEVEL TOTAL 2021-10-15 15:08:00 Bijan Verónica [facility] ALBUMIN LEVEL 2021-10-15 15:08:00 Bijan [facility] ALKALINE PHOSPHATASE 2021-10-15 15:08:00 Verónica Thakkar [facility] ALANINE AMINOTRANSFERASE 2021-10-15 15:08:00 Verónica Thakkar [facility] ASPARTATE AMINOTRANSFERASE 2021-10-15 15:08:00 Verónica [facility] TOTAL PROTEIN 2021-10-15 15:08:00 Bijan [facility] FRACTIONATED BILIRUBIN 2021-10-15 15:08:00 Bijan Verónica [facility] Results CBC 2021-10-15 15:08:00 Bijan [facility] MANUAL DIFFERENTIAL 2021-10-15 15:08:00 Verónica Thakkar [facility] XR CHEST 1 VW 2021-10-15 14:45:00 Bijan [facility] EKG, 12-LEAD (PORTABLE) 2021-10-15 00:00:00 Verónica Thakkar [facility] COMPLETE BLOOD COUNT W/ 2021-09-05 11:48:00 Inez Lagunas [facility] DIFFERENTIAL [facility] COMPREHENSIVE METABOLIC 2021-09-05 11:48:00 Inez [facility] PANEL [facility] MAGNESIUM LEVEL 2021-09-05 11:48:00 Bebo, [facility] PHOSPHORUS LEVEL 2021-09-05 11:48:00 Bebo [facility] Results CBC 2021-09-05 11:48:00 Bebo [facility] MANUAL DIFFERENTIAL 2021-09-05 11:48:[address] [facility] GLUCOSE LEVEL 2021-09-05 11:48:00 Bebo [facility] BLOOD UREA NITROGEN 2021-09-05 11:48:00 Bebo [facility] ELECTROLYTE PANEL 2021-09-05 11:48:00 Bebo [facility] SERUM CREATININE 2021-09-05 11:48:00 Bebo [facility] .GLOMERULAR FILTRATION 2021-09-05 11:48:00 [facility] CALCIUM LEVEL TOTAL 2021-09-05 11:48:[address] [facility] ALBUMIN LEVEL 2021-09-05 11:48:00 Bebo [facility] ALKALINE PHOSPHATASE 2021-09-05 11:48:[address] [facility] Univers it[facility] ALANINE AMINOTRANSFERASE 2021-09-05 11:48:[address] [facility] ASPARTATE AMINOTRANSFERASE 2021-09-05 11:48:00 Inez [facility] TOTAL PROTEIN 2021-09-05 11:48:00 Inez Lagunas [place] [facility] FRACTIONATED BILIRUBIN 2021-09-05 11:48:00 Inez Lagunas [facility] STREPTOCOCCUS PNEUMONIAE 2021-09-04 19:38:00 Inez [facility] [place] URINE ANTIGEN [facility] LEGIONELLA URINE ANTIGEN 2021-09-04 19:38:00 Bebo Mini [facility] LEGIONELLA URINE ANTIGEN 2021-09-04 19:38:00 Bebo Mini [facility] [place] PATH REVIEW [facility] STREPTOCOCCAL URINE 2021-09-04 19:38:[address] [facility] ANTIGEN PATH REVIEW [facility] LOWER RESPIRATORY CULTURE 2021-09-04 19:36:00 Inez [facility] W/ GRAM STAIN [facility] BASIC METABOLIC PANEL, 2021-09-04 09:51:00 [facility]ica [facility] CALCIUM TOTAL [facility] MAGNESIUM LEVEL 2021-09-04 09:51:00 Bijan [facility] PHOSPHORUS LEVEL 2021-09-04 09:51:00 Bijan [facility] TROPONIN T 2021-09-04 09:51:00 Aisha Mehrdad [facility] GLUCOSE LEVEL 2021-09-04 09:51:00 Bijan [facility] BLOOD UREA NITROGEN 2021-09-04 09:51:00 Verónica Thakkar [facility] ELECTROLYTE PANEL 2021-09-04 09:51:00 Bijan [facility] SERUM CREATININE 2021-09-04 09:51:00 Bijan [facility] .GLOMERULAR FILTRATION 2021-09-04 09:51:00 Verónica Thakkar [facility] RATE [facility] CALCIUM LEVEL TOTAL 2021-09-04 09:51:00 Bijan Verónica [facility] TROPONIN T 2021-09-04 03:49:00 Bijan [facility] CREATINE KINASE 2021-09-04 03:49:00 Bijan [facility] CKMB 2021-09-04 03:49:00 Bijan [facility] CT CHEST PULMONARY 2021-09-04 03:46:45 Bijan Verónica [facility] EMBOLISM W CONTRAST [facility] Cancer Paige XR CHEST 1 VW 2021-09-03 23:40:27 Jyoti Morales [facility] RESPIRATORY VIRAL 2021-09-03 23:14:00 Jyoti Morales [facility] MULTIPLEX PCR PANEL, [facility] Cancer NASOPHARYNGEAL SWAB Center COMPLETE BLOOD COUNT W/ 2021-09-03 21:54:00 Jyoti Morales [facility] DIFFERENTIAL [facility] COMPREHENSIVE METABOLIC 2021-09-03 21:54:00 Jyoti Morales [facility] PANEL [facility] MAGNESIUM LEVEL 2021-09-03 21:54:00 Jyoti Morales [facility] PHOSPHORUS LEVEL 2021-09-03 21:54:00 Jyoti Morales [facility] NT PRO BNP 2021-09-03 21:54:00 Jyoti Morales [facility] TROPONIN T 2021-09-03 21:54:00 Jyoti Morales [facility] Results CBC 2021-09-03 21:54:00 Jyoti Morales [facility] MANUAL DIFFERENTIAL 2021-09-03 21:54:00 Jyoti Morales [facility] GLUCOSE LEVEL 2021-09-03 21:54:00 Jyoti Morales [facility] BLOOD UREA NITROGEN 2021-09-03 21:54:00 Jyoti Morales [facility] ELECTROLYTE PANEL 2021-09-03 21:54:00 Jyoti Morales [facility] SERUM CREATININE 2021-09-03 21:54:00 Jyoti Morales [facility] .GLOMERULAR FILTRATION 2021-09-03 21:54:00 [facility] CALCIUM LEVEL TOTAL 2021-09-03 21:54:00 Jyoti Morales [facility] ALBUMIN LEVEL 2021-09-03 21:54:00 Jyoti Morales [facility] ALKALINE PHOSPHATASE 2021-09-03 21:54:00 Jyoti Morales [facility] ALANINE AMINOTRANSFERASE 2021-09-03 21:54:00 J[facility] ASPARTATE AMINOTRANSFERASE 2021-09-03 21:54:00 Jyoti [facility] TOTAL PROTEIN 2021-09-03 21:54:00 Jyoti Morales [place] [facility] FRACTIONATED BILIRUBIN 2021-09-03 21:54:00 [facility] E[facility], 12-LEAD (PORTABLE) 2021-09-03 00:00:00 Jyoti Morales [facility] CT CHEST W CONTRAST 2021-08-13 14:15:24 Nicole Del Rosario [facility] POC CREATININE 2021-08-13 13:30:00 Nicole Del Rosario [facility] REPLACEMENT OF GASTROSTOMY 2021-05-22 04:50:00 Claude Tobin [facility] INCLUDES REMOVAL, WHEN Center PERFORMED, WITHOUT IMAGING OR ENDOSCOPIC GUIDANCE; NOT REQUIRING REVISION OF GASTROSTOMY TRACT CT CHEST ABDOMEN PELVIS W 2021-04-20 19:35:00 Jackie Mendez [facility] CONTRAST [facility] POC CREATININE 2021-04-20 18:02:00 Maria Fernanda [facility] MRI BRAIN W WO CONTRAST 2021-04-20 16:10:00 Jackie Mendez [facility] Plan of Care Planned Activity Planned Date [...] Department ID 2022-10-08 Outpatient SYSTEM, ANUJ LESLIE [id number] 12:38:41 PROVIDER Bakari o n 2021-04-30 Emergency [facility] [id number] Univers 04:07:38 ity of [facility] 2020-04-12 Outpatient ANUJ LESLIE [id number] 16:09:07 Fuentes zimmerman 2020-02-14 Outpatient SYSTEM, ANUJ LESLIE [id number] 13:23:33 PROVIDER Bakari o n 2022-09-13 2022-09-13 [facility], 1.2.840.1 [id number] Univers 07:30:00 23:59:00 Encounter Maria Fernanda Fu [id number] i ty of 3.412.2.7 [place] .3.537377 MD Beasley [facility] 2022-09-13 2022-09-13 Follow-Up NICHOLE [place], 1.2.840.1 [id number] Univers 11:30:00 13:09:21 Maria Fernanda VYancy 09933.1.1 ity of 3.412.2.7 [place] .3.854864 MD Beasley [facility] 2022-09-13 2022-09-13 Ancillary NICHOLE Clark, 1.2.840.1 [id number] Univers 08:35:00 10:00:00 Procedure Stella [id number] ity of 3.412.2.7 [place] .3.791395 MD Beasley [facility] 2022-09-13 2022-09-13 Raul Clark, 1.2.840.1 [id number] Univers 00:00:00 00:00:00 Only Stella 94563.1.1 it y of 3.412.2.7 [place] .3.626658 MD Beasley [facility] 2022-09-13 2022-09-13 Travel 1.2.840.1 [id number] Univers 00:00:00 00:00:00 [id number] 350.1.13.41 ity of 3.412.2.7 [place]3.698 [place] .3.034289 084.8 MD Beasley [facility] 2022-09-05 2022-09-05 Raul Clark, 1.2.840.1 [id number] Univers 00:00:00 00:00:00 Only Stella 50637.1.1 it y of 3.412.2.7 [place] .3.729488 MD Beasley [facility] 2022-08-29 2022-08-29 Uzma Akhtar, 1.2.840.1 [id number] Univers 00:00:00 00:00:00 Liz Flores 12394.1.1 ity of 3.412.2.7 [place] .3.320667 MD Haines8 [facility] 2022-06-19 2022-06-19 [facility] Patriciorachael, 1.2.840.1 [id number] Univers 00:00:00 00:00:00 Only Maria Fernanda Fu 74932.1.1 ity of 3.412.2.7 [place] .3.633430 MD Haines8 [facility] 2022-06-07 2022-06-07 [facility] NICHOLE Clark, 1.2.840.1 [id number] Univers 09:35:06 23:59:00 Encounter Stella 32453.1.1 ity of 3.412.2.7 [place] .3.024896 MD Haines8 [facility] 2022-06-07 2022-06-07 Follow-Up NICHOLE [place], 1.2.840.1 [id number] Univers 12:00:00 14:14:09 Maria Fernanda Cervantes. 34936.1.1 ity of 3.412.2.7 [place] .3.903215 MD Haines8 [facility] 2022-06-07 2022-06-07 [facility] NICHOLE Ballman, 1.2.840.1 [id number] Univers 07:00:00 09:30:00 Procedure Stella 06619.1.1 ity of 3.412.2.7 [place] .3.542869 MD Haines8 [facility] 2022-06-07 2022-06-07 [facility], 1.2.840.1 [id number] Univers 00:00:00 00:00:00 Only Stella 44186.1.1 it y of 3.412.2.7 [place] .3.169299 MD Haines8 [facility] 2022-06-07 2022-06-07 [facility] Patriciorachael, 1.2.840.1 [id number] Univers 00:00:00 00:00:00 Only Maria Fernanda Cervantes. 79032.1.1 ity of 3.412.2.7 [place] .3.447398 MD Beasley [facility] 2022-06-07 2022-06-07 Travel 1.2.840.1 [id number] Univers 00:00:00 00:00:00 23857.1.1 350.1.13.41 ity of 3.412.2.7 [place]7.3.698 [place] .3.440750 084.8 MD Haines8 [facility] 2022-05-09 2022-05-09 Telephone Fab, 1.2.840.1 [id number] Univers 00:00:00 00:00:00 Mini Pat 76923.1.1 ity of 3.412.2.7 [place] .3.711417 MD Beasley [facility] 2022-05-03 2022-05-03 Orders Amber, 1.2.840.1 [id number] Univers 00:00:00 00:00:00 Only Stella 75941.1.1 it y of 3.412.2.7 [place] .3.829961 MD Beasley [facility] 2022-05-03 2022-05-03 Telephone Zulema Cedillo 1.2.840.1 [id number] Univers 00:00:00 00:00:00 Desiree 06286.1.1 ity of 3.412.2.7 [place] .3.587932 MD Beasley [facility] 2021-12-28 2021-12-28 Nurse Lazaro, 1.2.840.1 [id number] Univers 00:00:00 00:00:00 Triage Constantine 24132.1.1 ity of 3.412.2.7 [place] .3.722357 MD Beasley [facility] 2021-12-28 2021-12-28 Documentat Luis Angel, 1.2.840.1 [id number] Univers 00:00:00 00:00:00 ion Maria Fernanda Fu 91490.1.1 ity of 3.412.2.7 [place] .3.962657 MD Haines8 [facility] 2021-12-20 2021-12-20 Telephone Ger, 1.2.840.1 [id number] Univers 00:00:00 00:00:00 Lolita 89227.1.1 ity of [place] 3.412.2.7 [place] .3.689252 MD Haines8 [facility] 2021-12-11 2021-12-11 Telephone Nuvia, 1.2.840.1 [id number] Univers 00:00:00 00:00:00 Bibiana Trevino 23623.1.1 ity of 3.412.2.7 [place] .3.834098 MD Haines8 [facility] 2021-12-05 2021-12-05 Telephone Mehta, 1.2.840.1 [id number] Univers 00:00:00 00:00:00 Kasie Lehman 33497.1.1 i ty of 3.412.2.7 [place] .3.894437 MD Haines8 [facility] 2021-12-01 2021-12-01 Nurse Marshall, 1.2.840.1 [id number] Univers 00:00:00 00:00:00 Triage Erin Lehman 24898.1.1 i ty of 3.412.2.7 [place] .3.647467 MD Beasley [facility] 2021-11-13 2021-11-13 Raul Clark, 1.2.840.1 [id number] Univers 00:00:00 00:00:00 Only Stella 45838.1.1 it y of 3.412.2.7 [place] .3.265296 MD Beasley [facility] 2021-11-13 2021-11-13 Telephone Edmund, 1.2.840.1 [id number] Univers 00:00:00 00:00:00 Daisy Zimmerman 32300.1.1 it y of 3.412.2.7 [place] .3.134223 MD Beasley [facility] 2021-11-02 2021-11-02 Orders Fito Gutierres 1.2.840.1 [id number] Univers 00:00:00 00:00:00 Only Herrera 43977.1.1 ity of 3.412.2.7 [place] .3.055705 .8 [facility] 2021-11-02 2021-11-02 Nurse Karsihma Chu 1.2.840.1 [id number] Univers 00:00:00 00:00:00 Triage Abby 58833.1.1 ity of 3.412.2.7 [place] .3.462359 .8 [facility] 2021-10-15 2021-10-24 [place] [facility] Ver[facility]ica 1.2.840.1 [id number] Univers 09:35:00 17:00:00 Encounter Thelma Bowser 11153.1.1 ity of Judy, Felix 3.412.2.7 Gio as Tod Glass V. .3.268678 Boni Dominguez .8 [facility] 2021-10-24 2021-10-24 Nurse Jackson 1.2.840.1 [id number] Univers 00:00:00 00:00:00 Triage Arcadio 41736.1.1 ity of 3.412.2.7 [place] .3.698024 .8 [facility] 2021-10-23 2021-10-23 Inpatient NICHOLE OBRIEN [facility] [id number] 20:59:49 21:16:07 BONI zimmerman 2021-10-19 2021-10-19 Surgery Aisha, 1.2.840.1 [id number] Univers 15:10:00 15:50:00 Edwige 90293.1.1 ity of Ali 3.412.2.7 [place] .3.047211 .8 [facility] 2021-10-19 2021-10-19 Anesthesia Jenise Degroot 1.2.840.1 [id number] Univers 13:24:00 13:49:00 Event Dhiraj Fry Tate 39929.1.1 ity of 3.412.2.7 [place] .3.386776 MD Beasley [facility] 2021-10-18 2021-10-18 Prep for Jacquelyn, 1.2.840.1 [id number] Univers 00:00:00 00:00:00 Surgery Shena 32222.1.1 [place].2.7 [place] .3.6730[place] Beasley [facility] 2021-10-17 2021-10-17 Inpatient EL MARIA LUISA SON MDA MDA [id number] 11:46:00 11:46:04 Bakari erasmo 2021-10-16 2021-10-16 Inpatient NICHOLE WASHINGTON, MDA MDA [id number] 14:52:17 14:52:20 MARIA FERNANDA zimmerman 2021-10-16 2021-10-16 Inpatient NICHOLE WASHINGTON, MDA MDA [id number] 10:37:11 10:37:14 MARIA FERNANDA zimmerman 2021-10-16 2021-10-16 Inpatient NICHOLE WASHINGTON, MDA MDA [id number] 10:05:03 10:05:06 MARIA FERNANDA zimmerman 2021-10-15 2021-10-15 Inpatient JUDY, ED MDA MDA [id number] 23:20:17 23:40:10 [facility] 2021-10-15 2021-10-15 Travel 1.2.840.1 1.2.245.784 [id number] Univers 00:00:00 00:00:00 31902.1.1 350.1.13.41 ity of 3.412.2.7 [place].3.698 [place] .3.155[place] 084.8 MD Haines8 [facility] 2021-10-11 2021-10-11 Raul Clark 1.2.840.1 [id number] Univers 00:00:00 00:00:00 Only Stella 63564.1.1 it y of 3.412.2.7 [place] .3.028646 MD Haines8 [facility] 2021-10-10 2021-10-10 Orders Keeshanilsonerika 1.2.840.1 [id number] Univers 00:00:00 00:00:00 Only Kaylyn, 42514.1.1 ity of Deshawn 3.412.2.7 [place] .3.234214 MD Haines8 [facility] 2021-10-10 2021-10-10 Nurse Dean, 1.2.840.1 [id number] Univers 00:00:00 00:00:00 Triage Stella F 82079.1.1 ity of 3.412.2.7 [place] .3.365550 MD Haines8 [facility] 2021-10-10 2021-10-10 Telephone Price, 1.2.840.1 [id number] Univers 00:00:00 00:00:00 Ileana Ann 47914.1.1 i ty of 3.412.2.7 [place] .3.303864 MD Haines8 [facility] 2021-09-03 2021-09-07 [facility] Bijan Verónica 1.2.840.1 [id number] Univers 16:59:00 15:45:00 Encounter Mehrdad Rod 60714.1.1 ity of Estes Gurpreet 3.412.2.7 [place] .3.764751 MD Haines8 [facility] 2021-09-07 2021-09-07 Travel 1.2.840.1 1.2.075.656 [id number] [id number] Univers 00:00:00 00:00:00 08654.1.1 350.1.13.41 ity of 3.412.2.7 2.[place]7.3.698 [place] .3.728960 084.8 MD Haines8 [facility] 2021-09-05 2021-09-05 Inpatient NICHOLE HART MDA MDA [id number] 11:14:45 11:38:29 SOFI zimmerman 2021-09-03 2021-09-03 Travel 1.2.840.1 1.2.995.366 [id number] [id number] Univers 00:00:00 00:00:00 97724.1.1 350.1.13.41 ity of 3.412.2.7 2.2.7.3.698 [place] .3.606733 084.8 MD Haines8 [facility] 2021-09-03 2021-09-03 Telephone John, 1.2.840.1 [id number] Univers 00:00:00 00:00:00 Michael Lehman 04587.1.1 ity of 3.412.2.7 [place] .3.509558 MD Haines8 [facility] 2021-08-22 2021-08-22 Telephone Amber 1.2.840.1 [id number] Univers 00:00:00 00:00:00 Stella 91472.1.1 it y of 3.412.2.7 [place] .3.676804 MD Haines8 [facility] 2021-08-22 2021-08-22 Raul Clark 1.2.840.1 [id number] [id number] Univers 00:00:00 00:00:00 Only Stella 44025.1.1 it y of 3.412.2.7 [place] .3.443624 MD Beasley [facility] 2021-08-20 2021-08-20 Raul Sanon 1.2.840.1 [id number] Univers 00:00:00 00:00:00 Only Lela Ramírez 56403.1.1 ity of 3.412.2.7 [place] .3.060181 MD Beasley [facility] 2021-08-18 2021-08-18 Raul Clark 1.2.840.1 [id number] Univers 00:00:00 00:00:00 Only Stella 06904.1.1 it y of 3.412.2.7 [place] .3.845764 MD Beasley [facility] 2021-08-18 2021-08-18 Raul Washington 1.2.840.1 [id number] Univers 00:00:00 00:00:00 Only Maria Fernanda Fu 68926.1.1 ity of 3.412.2.7 [place] .3.488987 MD Haines8 [facility] 2021-08-17 2021-08-17 Telephone Zulema Cedillo 1.2.840.1 [id number] Univers 00:00:00 00:00:00 A 75228.1.1 ity of 3.412.2.7 [place] .3.749204 MD Haines8 [facility] 2021-08-14 2021-08-14 Office NICHOLE Piedra, 1.2.840.1 [id number] Univers 12:15:00 13:20:09 Visit Herrera 54344.1.1 ity of 3.412.2.7 [place] .3.265622 MD Haines8 [facility] 2021-08-14 2021-08-14 Office NICHOLE Washington, 1.2.840.1 [id number] [id number] Univers 08:30:00 10:28:29 Visit Maria Fernanda Fu 98609.1.1 ity of 3.412.2.7 [place] .3.016425 MD Haines8 [facility] 2021-08-14 2021-08-14 Orders Solo, 1.2.840.1 [id number] Univers 00:00:00 00:00:00 Only Jacki 43822.1.1 ity of 3.412.2.7 [place] .3.085075 MD Beasley [facility] 2021-08-14 2021-08-14 Orders Gucci, 1.2.840.1 [id number] Univers 00:00:00 00:00:00 Only Sarah Ybarra 38127.1.1 ity of 3.412.2.7 [place] .3.821461 MD Beasley [facility] 2021-08-14 2021-08-14 Travel 1.2.840.1 1.2.094.928 3075 [id number] Univers 00:00:00 00:00:00 05942.1.1 350.1.13.41 ity of 3.412.2.7 2.[place]7.3.698 [place] .3.567741 084.8 MD Beasley [facility] 2021-08-13 2021-08-13 [facility] NICHOLE Marr, Raymundo 1.2.840.1 [id number] Univers 09:45:00 23:59:00 Encounter 94621.1.1 it y of 3.412.2.7 [place] .3.814405 MD Beasley [facility] 2021-08-13 2021-08-13 [facility] NICHOLE Del Rosario, 1.2.840.1 [id number] Univers 06:35:00 09:44:00 Encounter Nicole 92872.1.1 it y of Chunyi 3.412.2.7 [place] .3.677129 MD Beasley [facility] 2021-08-13 2021-08-13 Raul Del Rosario, 1.2.840.1 [id number] Univers 00:00:00 00:00:00 Only Nicole 21002.1.1 ity of Chunyi 3.412.2.7 [place] .3.497703 MD Beasley [facility] 2021-08-13 2021-08-13 Travel 1.2.840.1 1.2.014.692 1591 [id number] Univers 00:00:00 00:00:00 82020.1.1 350.1.13.41 ity of 3.412.2.7 2.2.7.3.698 [place] .3.189576 084.8 MD Beasley [facility] 2021-08-11 2021-08-11 Angel Washington, 1.2.840.1 [id number] 1089 [id number] Univers 00:00:00 00:00:00 Maria Fernanda Fu 13967.1.1 ity of 3.412.2.7 [place] .3.032727 MD Beasley [facility] 2021-08-07 2021-08-07 Orders Fenton, 1.2.840.1 [id number] Univers 00:00:00 00:00:00 Only Abdirizak 25752.1.1 ity of 3.412.2.7 [place] .3.834759 MD Haines8 [facility] 2021-07-27 2021-07-27 Telephone Jarrett, 1.2.840.1 [id number] 1 [id number] Univers 00:00:00 00:00:00 Génesis L 83706.1.1 ity of 3.412.2.7 [place] .3.636372 MD Haines8 [facility] 2021-07-27 2021-07-27 Angel Clark, 1.2.840.1 [id number] Univers 00:00:00 00:00:00 Stella 03009.1.1 it y of 3.412.2.7 [place] .3.396527 MD Haines8 [facility] 2021-07-26 2021-07-26 Telephone Anais, 1.2.840.1 [id number] 1 [id number] Univers 00:00:00 00:00:00 Génesis Trevino 83279.1.1 ity of 3.412.2.7 [place] .3.082995 MD Haines8 [facility] 2021-07-26 2021-07-26 Orders Mendez, 1.2.840.1 [id number] Univers 00:00:00 00:00:00 Only Jackie 66922.1.1 ity of 3.412.2.7 [place] .3.030008 MD Haines8 [facility] 2021-07-26 2021-07-26 Angel Clark, 1.2.840.1 [id number] Univers 00:00:00 00:00:00 Stella 62518.1.1 it y of 3.412.2.7 [place] .3.968951 MD Haines8 [facility] 2021-07-19 2021-07-19 Telephone Edmund, 1.2.840.1 [id number] Univers 00:00:00 00:00:00 Daisy N 19001.1.1 it y of 3.412.2.7 [place] .3.670852 MD Haines8 [facility] 2021-07-12 2021-07-12 Telephone Amber, 1.2.840.1 [id number] Univers 00:00:00 00:00:00 Stella 14752.1.1 it y of 3.412.2.7 [place] .3.368735 MD Haines8 [facility] 2021-07-11 2021-07-11 Raul Clark, 1.2.840.1 [id number] Univers 00:00:00 00:00:00 Only Stella 11875.1.1 it y of 3.412.2.7 [place] .3.683535 MD Haines8 [facility] 2021-07-11 2021-07-11 Telephone Price, 1.2.840.1 [id number] [id number] Univers 00:00:00 00:00:00 Ileana L 56069.1.1 i ty of 3.412.2.7 [place] .3.630205 MD Haines8 [facility] 2021-07-02 2021-07-02 Raul Clark, 1.2.840.1 [id number] [id number] Univers 00:00:00 00:00:00 Only Stella 09904.1.1 it y of 3.412.2.7 [place] .3.429351 MD Haines8 [facility] 2021-06-27 2021-06-27 Raul Clark 1.2.840.1 [id number] 0004 Univers 00:00:00 00:00:00 Only Stella 47442.1.1 it y of 3.412.2.7 [place] .3.539105 MD Beasley [facility] 2021-06-25 2021-06-25 Raul Clark 1.2.840.1 [id number] Univers 00:00:00 00:00:00 Only Stella 82260.1.1 it y of 3.412.2.7 [place] .3.043324 MD Haines8 [facility] 2021-06-14 2021-06-14 Telephone Ger, 1.2.840.1 [id number] 1 [id number] Univers 00:00:00 00:00:00 Lolita 62124.1.1 ity of Ethelda 3.412.2.7 [place] .3.580982 MD Haines8 [facility] 2021-06-11 2021-06-11 Raul Clark, 1.2.840.1 [id number] Univers 00:00:00 00:00:00 Only Stella 00576.1.1 it y of 3.412.2.7 [place] .3.163771 MD Haines8 [facility] 2021-06-09 2021-06-09 Angel Rivas, 1.2.840.1 [id number] Univers 00:00:00 00:00:00 Yudith Lehman 18306.1.1 ity of 3.412.2.7 [place] .3.290568 MD Haines8 [facility] 2021-06-06 2021-06-06 Uzma Manzo, 1.2.840.1 [id number] 1 [id number] Univers 00:00:00 00:00:00 Génesis Trevino 47102.1.1 ity of 3.412.2.7 [place] .3.513945Yenni Haines8 [facility] 2021-05-21 2021-05-21 [facility], 1.2.840.1 [id number] Univers 14:50:00 15:20:00 Claude 26528.1.1 ity of 3.412.2.7 [place] .3.937902 MD Beasley [facility] 2021-05-21 2021-05-21 [facility], 1.2.840.1 [id number] Univers 12:54:00 13:30:00 Encounter Claude 15720.1.1 it y of 3.412.2.7 [place] .3.293968Yenni Haines8 [facility] 2021-05-21 2021-05-21 Travel 1.2.840.1 1.2.944.636 [id number] [id number] Univers 00:00:00 00:00:00 91302.1.1 350.1.13.41 ity of 3.412.2.7 2.2.7.3.698 [place] .3.907297 084.8 MD Haines8 [facility] 2021-05-17 2021-05-17 Prep for Yannick, 1.2.840.1 [id number] Univers 00:00:00 00:00:00 Surgery Elmira Zimmerman 22983.1.1 it y of 3.412.2.7 [place] .3.565032 MD aHines8 [facility] 2021-05-17 2021-05-17 Raul Clark, 1.2.840.1 [id number] Univers 00:00:00 00:00:00 Only Stella 15998.1.1 it y of 3.412.2.7 [place] .3.013870 MD Haines8 [facility] 2021-05-16 2021-05-16 Raul Clark, 1.2.840.1 [id number] Univers 00:00:00 00:00:00 Only Stella 70902.1.1 it y of 3.412.2.7 [place] .3.763459 MD Haines8 [facility] 2021-05-16 2021-05-16 Telephone Ger, 1.2.840.1 [id number] 1 [id number] Univers 00:00:00 00:00:00 Lolita 18770.1.1 ity of Ethelda 3.412.2.7 [place] .3.051291 MD Haines8 [facility] 2021-05-16 2021-05-16 Telephone Ger, 1.2.840.1 [id number] 1 [id number] Univers 00:00:00 00:00:00 Lolita 23566.1.1 ity of Ethelda 3.412.2.7 [place] .3.265735 MD Haines8 [facility] 2021-05-14 2021-05-14 Orders Tegan, 1.2.840.1 [id number] Univers 00:00:00 00:00:00 Only Giovanna Tanner 41631.1.1 i ty of 3.412.2.7 [place] .3.453223 MD Haines8 [facility] 2021-04-27 2021-04-27 Orders Amber 1.2.840.1 [id number] Univers 00:00:00 00:00:00 Only Stella 22191.1.1 it y of 3.412.2.7 [place] .3.855505 MD Haines8 [facility] 2021-04-25 2021-04-25 Orders Amber 1.2.840.1 [id number] Univers 00:00:00 00:00:00 Only Stella 58975.1.1 it y of 3.412.2.7 [place] .3.492205 MD Haines8 [facility] 2021-04-23 2021-04-23 [facility] Raymundo Rivera 1.2.840.1 [id number] Univers 09:38:02 23:59:00 Encounter 12009.1.1 it y of 3.412.2.7 [place] .3.918104 MD Haines8 [facility] 2021-04-23 2021-04-23 Raul Del Rosario 1.2.840.1 [id number] Univers 00:00:00 00:00:00 Only Nicole 08345.1.1 ity of Chunyi 3.412.2.7 [place] .3.015178 MD Beasley [facility] 2021-04-23 2021-04-23 Raul Del Rosario 1.2.840.1 [id number] Univers 00:00:00 00:00:00 Only Nicole 28035.1.1 ity of Chunyi 3.412.2.7 [place] .3.663280 MD Beasley [facility] 2021-04-23 2021-04-23 Raul Del Rosario, 1.2.840.1 [id number] Univers 00:00:00 00:00:00 Only Nicole 34287.1.1 ity of Chun[place] 3.412.2.7 [place] .3.573493 MD Beasley [facility] 2021-04-23 2021-04-23 Raul Del Rosario, 1.2.840.1 [id number] Univers 00:00:00 00:00:00 Only Nicole 61604.1.1 ity of [place]un[place] 3.412.2.7 [place] .3.712546 MD Haines8 [facility] 2021-04-23 2021-04-23 Travel 1.2.840.1 1.2.254.406 4675 [id number] Univers 00:00:00 00:00:00 51698.1.1 350.1.13.41 ity of 3.412.2.7 [place]7.3.698 [place] .3.500975 084.8 MD Beasley [facility] 2021-04-20 2021-04-20 [facility], 1.2.840.1 [id number] Univers 11:46:55 23:59:00 Encounter Maria Fernanda V. 56562.1.1 i ty of 3.412.2.7 [place] .3.061479 MD Beasley [facility] 2021-04-20 2021-04-20 [facility], 1.2.840.1 [id number] Univers 09:15:00 11:00:00 Procedure Maria Fernanda V. 45517.1.1 i ty of 3.412.2.7 [place] .3.596615 MD Beasley [facility] 2021-04-20 2021-04-20 Travel 1.2.840.1 1.2.840.285 8920 [id number] Univers 00:00:00 00:00:00 43657.1.1 350.1.13.41 ity of 3.412.2.7 2.2.7.3.698 [place] .3.689441 084.8 .8 [facility] 2021-04-16 2021-04-16 [facility], 1.2.840.1 [id number] 1 [id number] Univers 09:30:00 23:59:00 Encounter Mary Beth Ann 74949.1.1 i ty of 3.412.2.7 [place] .3.655572 .8 [facility] 2021-04-16 2021-04-16 Office Rah, 1.2.840.1 [id number] Univers 09:00:00 10:36:47 Visit Herrera 65249.1.1 ity of 3.412.2.7 [place] .3.761070 MD Haines8 [facility] 2021-04-16 2021-04-16 Travel 1.2.840.1 1.2.607.077 1921 [id number] Univers 00:00:00 00:00:00 87787.1.1 350.1.13.41 ity of 3.412.2.7 2.2.7.3.698 [place] .3.809753 084.8 .Shaun [facility] 2021-04-13 2021-04-13 Raul Giraldo, 1.2.840.1 [id number] Univers 00:00:00 00:00:00 Only Wayne 01507.1.1 ity of 3.412.2.7 [place] .3.514360 MD Beasely [facility] 2021-04-07 2021-04-07 Raul Murguia 1.2.840.1 [id number] Univers 00:00:00 00:00:00 Only Kaylyn, 99008.1.1 ity of Deshawn 3.412.2.7 [place] .3.064848 MD Beasley [facility] 2021-04-07 2021-04-07 Nurse Taylor 1.2.840.1 [id number] Univers 00:00:00 00:00:00 Triage Juan Lehman 63306.1.1 it y of 3.412.2.7 [place] .3.142239 MD Beasley [facility] 2021-04-05 2021-04-05 Raul Clark, 1.2.840.1 [id number] Univers 00:00:00 00:00:00 Only Stella 46187.1.1 it y of 3.412.2.7 [place] .3.384275 MD Haines8 [facility] 2021-04-04 2021-04-04 Angel Gonzalez 1.2.840.1 [id number] Univers 00:00:00 00:00:00 Gurpreet Desiree 90210.1.1 it y of 3.412.2.7 [place] .3.651491 MD Beasley [facility] 2021-04-04 2021-04-04 Gabrielle Osborne 1.2.840.1 [id number] Univers 00:00:00 00:00:00 K 21473.1.1 ity of 3.412.2.7 [place] .3.937698 MD Haines8 [facility] 2021-04-03 2021-04-03 Gillian Marr 1.2.840.1 [id number] Univers 14:00:00 14:00:00 Alina 71156.1.1 ity of 3.412.2.7 [place] .3.391730 MD Beasley [facility] 2021-03-30 2021-03-30 Raul Clark, 1.2.840.1 [id number] Univers 00:00:00 00:00:00 Only Stella 77397.1.1 it y of 3.412.2.7 [place] .3.249598 MD Beasley [facility] 2021-03-29 2021-03-29 Raul Clark 1.2.840.1 [id number] Univers 00:00:00 00:00:00 Only Stella 41477.1.1 it y of 3.412.2.7 [place] .3.872143 MD Beasley [facility] 2021-03-27 2021-03-27 Raul Clark, 1.2.840.1 [id number] 6159 Univers 00:00:00 00:00:00 Only Stella 68441.1.1 it y of 3.412.2.7 [place] .3.748550 MD Haines8 [facility] 2021-03-27 2021-03-27 Angel Santillan, 1.2.840.1 [id number] Univers 00:00:00 00:00:00 Wilfredo Stewart 75545.1.1 ity of 3.412.2.7 [place] .3.951661 MD Haines8 [facility] 2021-03-09 2021-03-09 Raul Perez, 1.2.840.1 [id number] 8202 Univers 00:00:00 00:00:00 Only Tanja Mora 05735.1.1 ity of 3.412.2.7 [place] .3.284743 MD Haines8 [facility] 2021-03-08 2021-03-08 Raul Clark, 1.2.840.1 [id number] Univers 00:00:00 00:00:00 Only Stella 56245.1.1 it y of 3.412.2.7 [place] .3.275016 MD Haines8 [facility] 2021-03-07 2021-03-07 Raul Perez 1.2.840.1 [id number] Univers 00:00:00 00:00:00 Only Tanja Mora 96629.1.1 ity of 3.412.2.7 [place] .3.209150 MD Haines8 [facility] 2021-03-07 2021-03-07 Documentarden Cordon 1.2.840.1 [id number] Univers 00:00:00 00:00:00 ion Benedicto 01681.1.1 ity of 3.412.2.7 [place] .3.276619 MD Haines8 [facility] 2021-03-07 2021-03-07 Refzuleyka Rivas, 1.2.840.1 [id number] Univers 00:00:00 00:00:00 Yudith Lehman 90279.1.1 ity of 3.412.2.7 [place] .3.811998 .8 [facility] 2021-03-07 2021-03-07 Mariza Langley, 1.2.840.1 [id number] Univers 00:00:00 00:00:00 lino Shoemaker 54436.1.1 ity of Sofi 3.412.2.7 [place] .3.737209 .8 [facility] 2021-02-16 2021-03-02 Inpatient UR SMITH, [facility] [id number] 13:50:00 18:30:00 IRINA Villegas o erasmo 2021-03-02 2021-03-02 Inpatient EL SARAH, [facility] MDA [id number] 10:28:13 10:52:29 IRINA Villegas o erasmo 2021-03-01 2021-03-01 Inpatient EL GABRIELLE GONZALEZ [facility] [id number] 13:48:32 14:24:14 Bakari o erasmo 2021-02-28 2021-02-28 Inpatient EL GABRIELLE GONZALEZ [facility] [id number] 15:34:04 16:08:02 Bakari o erasmo 2021-02-27 2021-02-27 Inpatient EL FOSSELLA, MDA MDA [id number] 11:31:18 11:31:23 MARIA FERNANDA Villegas o erasmo 2021-02-23 2021-02-23 Inpatient EL KONDODY, MDA MDA [id number] 08:50:18 09:09:38 MARCIN Villegas o erasmo 2021-02-20 2021-02-20 Inpatient EL HALM, MDA MDA [id number] 21:52:07 22:45:31 MAYANK Villegas o erasmo 2021-02-19 2021-02-19 Inpatient EL HALM, MDA MDA [id number] 16:34:08 16:35:56 MAYANK Villegas o erasmo 2021-02-19 2021-02-19 Inpatient EL HALM, MDA MDA [id number] 14:32:55 14:50:27 MAYANKLIO Leesers o erasmo 2021-02-19 2021-02-19 Inpatient EL FOSSELLA, MDA MDA [id number] 11:06:11 11:06:14 MARIA FERNANDA zimmerman 2021-02-18 2021-02-18 Inpatient EL HALM, MDA MDA [id number] 15:44:22 16:22:28 MAYANK Bakari o erasmo 2021-02-17 2021-02-17 Inpatient EL MARIA LUISA, SON MDA MDA [id number] 03:53:53 04:06:50 Bakari zimmerman 2021-01-21 2021-01-30 Inpatient ER ODARO, [facility] [id number] 21:38:00 18:36:00 BENEDICTO zimmerman 2021-01-30 2021-01-30 Inpatient EL FOSSELLA, MDA MDA [id number] 15:18:04 15:18:06 MARIA FERNANDA zimmerman 2021-01-28 2021-01-28 Inpatient EL AL AMERI, MDA MDA [id number] 13:47:27 13:49:05 RASHAAD zimmerman 2021-01-25 2021-01-25 Inpatient EL AL AMERI, MDA MDA [id number] 20:37:26 20:37:30 RASHAAD zimmerman 2021-01-24 2021-01-24 Inpatient EL AL AMERI, MDA MDA [id number] 08:18:01 08:38:37 RASHAAD zimmerman 2021-01-22 2021-01-22 Inpatient EL AL AMERI, MDA MDA [id number] 19:02:05 19:25:15 RASHAAD zimmerman 2021-01-04 2021-01-19 Inpatient ER SIMBAQUEBA MDA Hosp Med [id number] 11:01:00 16:25:00 Levi RAJPUT 2021-01-18 2021-01-18 Inpatient EL FOSSELLA, MDA MDA [id number] 11:15:46 11:15:49 MARIA FERNANDA zimmerman 2021-01-15 2021-01-15 Inpatient EL FOSSELLA, MDA MDA [id number] 10:54:17 10:54:19 MARIA FERNANDA zimmerman 2021-01-14 2021-01-14 Inpatient EL ROXY, MDA MDA [id number] 12:12:50 13:22:39 TORRESJOY zimmerman 2021-01-12 2021-01-12 Inpatient EL FOSSELLA, MDA MDA [id number] 11:16:26 11:16:28 MARIA FERNANDA zimmerman 2021-01-10 2021-01-10 Inpatient EL FOSSELLA, MDA MDA [id number] 12:34:26 12:34:30 MARIA FERNANDA zimmerman 2021-01-09 2021-01-09 Inpatient EL ESTES, MDA MDA [id number] 21:30:37 21:42:18 GURPREET zimmerman 2021-01-08 2021-01-08 Inpatient EL ESTES, MDA MDA [id number] 11:15:00 12:40:27 GURPREET zimmerman 2021-01-07 2021-01-07 Inpatient EL ALEXUS, MDA MDA [id number] 09:48:34 10:43:19 BONI zimmerman 2021-01-05 2021-01-05 Inpatient EL FOSSELLA, MDA MDA [id number] 10:28:44 10:28:46 MARIA FERNANDA zimmerman 2020-12-26 2020-12-26 Outpatient EL FOSSELLA, MDA MDA [id number] 13:17:22 13:49:03 MARIA FERNANDA zimmerman 2020-12-22 2020-12-22 Outpatient EL FOSSELLA, MDA MDA [id number] 15:44:28 15:44:28 MARIA FERNANDA zimmerman 2020-12-20 2020-12-20 Outpatient EL FOSSELLA, MDA MDA [id number] 14:45:38 15:10:28 MARIA FERNANDA zimmerman 2020-12-19 2020-12-19 Outpatient EL FOSSELLA, MDA MDA [id number] 15:02:13 15:33:05 MARIA FERNANDA zimmerman 2020-12-18 2020-12-18 Outpatient EL FOSSELLA, MDA MDA [id number] 14:30:00 23:59:00 MARIA FERNANDA zimmerman 2020-12-18 2020-12-18 Outpatient EL RAYMUNDO MARR MDA MDA [id number] 15:34:19 15:34:19 Bakari zimmerman 2020-12-18 2020-12-18 Outpatient EL FOSSELLA, MDA MDA [id number] 14:39:45 15:30:31 MARIA FERNANDA zimmerman 2020-12-15 2020-12-15 Outpatient EL FOSSELLA, MDA MDA [id number] 14:01:01 14:06:41 MARIA FERNANDA zimmerman 2020-11-20 2020-11-24 Inpatient X RUSSELL [facility]DO [facility] [id number] Univers 00:18:00 16:31:00 [facility] 2020-10-26 2020-10-26 Outpatient R [facility] [id number] Univers 09:00:00 09:00:00 [facility] 2020-10-17 2020-10-17 Outpatient R LIND, [place] [facility] [id number] [facility] 09:30:00 09:30:00 J[facility]SON [facility] 2020-07-27 2020-07-27 Outpatient R UNKNOWN, [facility] [id number] Univers 14:30:00 14:30:00 ATTENDING [facility] 2020-07-05 2020-07-05 Outpatient INCHOLE PIEDRA, MDA MDA [id number] 10:29:44 10:55:21 HERRERA zimemrman 2020-04-28 2020-04-29 Inpatient HCAMN DANDRE [id number] [facility] 02:28:00 09:27:09 18 [facility] 2020-04-27 2020-04-27 Outpatient EL FOSSELLA, MDA MDA [id number] 06:26:24 06:26:24 MARIA FERNANDA zimmerman 2020-04-25 2020-04-25 Outpatient EL FOSSELLA, MDA MDA [id number] 15:16:25 23:59:00 MARIA FERNANDA zimmerman 2020-04-25 2020-04-25 Outpatient EL FOSSELLA, MDA MDA [id number] 16:52:13 16:52:13 MARIA FERNANDA zimmerman 2020-04-21 2020-04-21 Outpatient EL FOSSELLA, MDA MDA [id number] 12:34:59 15:51:01 MARIA FERNANDA zimmerman 2020-04-17 2020-04-17 Outpatient EL ROCKY RODRIGUEZ MDA MDA [id number] MD 11:29:21 23:59:00 Bakari zimmerman 2020-04-17 2020-04-17 Outpatient EL MDA MDA [id number] MD 09:00:09 11:28:00 Bakari zimmerman 2020-04-17 2020-04-17 Outpatient EL ROSA MARIA, MDA MDA [id number] MD 09:38:52 11:12:52 CODY zimmerman 2020-04-14 2020-04-14 Outpatient EL MDA MDA [id number] MD 11:14:57 23:59:00 Bakari zimmerman 2020-04-14 2020-04-14 Outpatient EL AURELIANO EDWARD MDA MDA [id number] MD 12:35:21 13:51:10 Bakari zimmerman 2020-04-14 2020-04-14 Outpatient EL MDA MDA [id number] MD 08:26:38 11:13:00 Bakari zimmerman 2020-04-13 2020-04-13 Outpatient EL MDA MDA [id number] MD 15:45:00 23:59:00 Bakarijanice zimmerman 2020-04-13 2020-04-13 Outpatient EL MDA MDA [id number] MD 13:53:11 15:44:00 Bakari o erasmo 2020-04-13 2020-04-13 Outpatient EL MDA MDA [id number] MD 13:27:19 13:52:00 Bakari o erasmo 2020-04-13 2020-04-13 Outpatient EL MDA MDA [id number] MD 10:45:00 13:26:00 Bakari o erasmo 2020-04-13 2020-04-13 Outpatient EL ROSA MARIA, MDA MDA [id number] MD 07:39:14 10:44:00 CODY Villegas o erasmo 2020-04-12 2020-04-12 Outpatient EL SHANELL, MDA MDA [id number] 12:45:00 23:59:00 ORACIO zimmerman 2020-04-11 2020-04-11 Outpatient EL BRENDON, MDA MDA [id number] MD 11:45:00 23:59:00 WILFREDO zimmerman 2020-04-11 2020-04-11 Outpatient EL BRENDON, MDA MDA [id number] MD 11:23:21 11:23:21 WILFREDO zimmerman 2020-03-31 2020-03-31 Outpatient EL CONATSally, MDA MDA [id number] 08:00:00 23:59:00 MAURICIO zimmerman 2020-03-31 2020-03-31 Outpatient EL ROSA MARIA, MDA MDA [id number] MD 08:51:09 09:59:36 CODY zimmerman 2020-03-20 2020-03-20 Outpatient EL ILIESCU, MDA MDA [id number] MD 10:02:47 10:02:47 ORACIO Leesers o erasmo 2020-03-20 2020-03-20 Outpatient EL REGINA, MDA MDA [id number] MD 09:57:25 09:57:25 HAYLEY Leesers o erasmo 2020-03-10 2020-03-10 Outpatient EL REGINA, MDA MDA [id number] MD 08:10:34 08:10:34 HAYLEY Leesers o erasmo 2020-03-02 2020-03-02 Outpatient EL REGINA, MDA MDA [id number] 12:40:44 23:59:00 HAYLEY Leesers o erasmo 2020-03-02 2020-03-02 Outpatient EL ILIESCU, MDA MDA [id number] MD 10:20:00 14:05:06 ORACIO Leesers o erasmo 2020-03-02 2020-03-02 Outpatient EL REGINA, MDA MDA [id number] MD 12:15:00 12:39:00 HAYLEY Leesers o erasmo 2020-03-02 2020-03-02 Outpatient EL ILIESCU, MDA MDA [id number] MD 10:29:25 10:29:25 ORACIO Leesers o erasmo 2020-03-02 2020-03-02 Outpatient EL MDA MDA [id number] MD 10:00:01 10:00:10 Bakari o erasmo 2020-02-29 2020-02-29 Outpatient EL MDA MDA [id number] MD 13:58:52 14:24:33 Bakari zimmerman 2019-08-26 2019-08-26 Outpatient PASCALE Jaimes Chel [id number] 12:48:00 12:48:00 [facility] 2019-08-12 2019-08-15 Inpatient HCAMN DANDRE [id number] [facility] 20:09:00 22:33:31 69 [facility] Results Test Description Test Time Test Comments Results Result Sourc e Comments Fractionated 2022-09-13 [employer] [employer] [facility] Bilirubin 14:14:11 Total<0.3<=1. Willis CARDENAS 2 mg/dLMAYS [facility] Fractionated 2022-09-13 [employer] o f Bilirubin 14:14:11 Total<0.3<=1. Willis CARDENAS 2 mg/dLMAYS [facility] Fractionated 2022-09-13 [employer] o f Bilirubin 14:14:11 Total<0.3<=1. Willis CARDENAS 2 mg/dLMAYS [facility] Fractionated 2022-09-13 [employer] o f Bilirubin 14:14:11 Total<0.3<=1. Willis CARDENAS 2 mg/dLMAYS [facility] Glomerular Filtration Rate 2022-09-13 14:14:10 Test Item Value Reference Range Interpretation Comme nts eGFR (test code = 105 See_Comment The [place]cr [place] 47870-0) the 2020 CKD-EP I creatinine equation using [...] a for CKD. Testing Perform ed at [facility] Lab Hl7 Developer [facility], [address], [address], [place], [place] [address] [Automated message] The [employer] stem which generated this result transmitted ref erence range: >=60 mL/min/1.7 3 sq. m. The reference range was not used to interpret this result as normal/abnormal . PAIGE (test code = Schedule same day PAIGE) tests[facility] 14:14:10 Test Item Value Reference Range Interpretation Comments eGFR (test 105 See_Comment The eGFRcr is c alculated code = with the 2020 C KD-EPI 81679-0) creatinine equa tion using creatinin e, patient's [...] eria for CKD. Testing Pe rformed at [facility], [address], [address], [place] [address] [Autom ated message] The sy stem which generated this result transmit lakhwinder reference range : >=60 mL/min/1.73 sq. m. The reference range was not used to interpr et this result as normal/abnormal . PAIGE (test Schedule same day code = PAIGE) tests[facility] 2022-09-13 14:14:10 Test Item Value Reference Range Interpretation Comments eGFR (test 105 See_Comment The eGFRcr is c alculated code = with the 2020 C KD-EPI 37931-5) creatinine equa tion using creatinin e, patient's [...] eria for CKD. Testing Pe rformed at [facility] Lab [facility], [address], [address], [place] [address] [Autom ated message] The sy stem which generated this result transmit lakhwinder reference range : >=60 mL/min/1.73 sq. m. The reference range was not used to interpr et this result as normal/abnormal . PAIGE (test Schedule same day code = PAIGE) tests/clinic appt [facility] Cancer PaigeGlomerular Filtration Rate 2022-09-13 14:14:10 Test Item Value Reference Range Interpretation Comments eGFR (test 105 See_Comment The eGFRcr is c alculated code = with the 2020 C KD-EPI 22393-7) creatinine equa tion using creatinin e, patient's [...] eria for CKD. Testing Pe rformed at [facility], [address], [address], [place] [address] [Autom ated message] The sy stem which generated this result transmit lakhwinder reference range : >=60 mL/min/1.73 sq. m. The reference range was not used to interpr et this result as normal/abnormal . PAIGE (test Schedule same day code = PAIGE) tests/clinic [facility] [id number] 14:14:09 Test Item Value Reference Range Interpretation Comments Total Protein 7.2 g/dL 6.4-8.3 Testing Perfor med (test code = at [facility] 2885-2) Merged With [facility], [address] [address], [address], [place], [place] [address] PAIGE (test code = Schedule same day PAIGE) tests/clinic [facility] [id number] 14:14:09 Test Item Value Reference Range Interpretation Comments Total Protein 7.2 g/dL 6.4-8.3 Testing Perfor med (test code = at [facility] 2885-2) Hl7 Developer [facility], [address], [address], [place], [place] [address] PAIGE (test code = Schedule same day PAIGE) tests/clinic [facility] [id number] 14:14:09 Test Item Value Reference Range Interpretation Comments Total Protein 7.2 g/dL 6.4-8.3 Testing Perfor med (test code = at [facility] 2885-2) Merged With [facility], [address] [facility], [address], [place] [address] PAIGE (test code = Schedule same day PAIGE) tests/clinic [facility] [id number] 14:14:09 Test Item Value Reference Range Interpretation Comments Total Protein 7.2 g/dL 6.4-8.3 Testing Perfor med (test code = at [facility] 2885-2) Hl7 Developer [facility], [facility], [address], [place] [address] PAIGE (test code = Schedule same day PAIGE) tests[facility] [id number] 14:14:08 Test Item Value Reference Range Interpretation Comments Calcium Lvl (test 9.4 mg/dL 8.4-10.2 Testing Pe rformed code = 54633-2) at [facility] Hl7 Developer [facility], [address] [place] [address], [address], [place] [address] PAIGE (test code = Schedule same day PAIGE) tests/clinic [facility] [id number] 14:14:08 Test Item Value Reference Range Interpretation Comments Calcium Lvl (test 9.4 mg/dL 8.4-10.2 Testing Pe rformed code = 66492-3) at [facility] Hl7 Developer [facility], [facility], [address], [place] [address] PAIGE (test code = Schedule same day PAIGE) tests/clinic [facility] [id number] 14:14:08 Test Item Value Reference Range Interpretation Comments Calcium Lvl (test 9.4 mg/dL 8.4-10.2 Testing Pe rformed code = 42616-1) at [facility] Hl7 Developer [facility], [address] [place] [address], [address], [place] [address] PAIGE (test code = Schedule same day PAIGE) tests/clinic [facility] [id number] 14:14:08 Test Item Value Reference Range Interpretation Comments Calcium Lvl (test 9.4 mg/dL 8.4-10.2 Testing Pe rformed code = 37669-2) at [facility] Hl7 Developer [facility], [address] [address], [address], [place] [address] PAIGE (test code = Schedule same day PAIGE) tests/clinic [facility] [id number] 14:14:07 Test Item Value Reference Range Interpretation Comments Alk Phos (test 94 U/L 40-129 Testing Perfo rmed at code = 6768-6) [facility] Ambul atory Care [facility], [address], [place] [address] PAIGE (test code Schedule same day = PAIGE) tests/clinic [facility] [id number] 14:14:07 Test Item Value Reference Range Interpretation Comments Alk Phos (test 94 U/L 40-129 Testing Perfo rmed at code = 6768-6) [facility] Ambul atory Care Bl, [address], [address], [place] [address] PAIGE (test code Schedule same day = PAIGE) tests/clinic [facility] [id number] 14:14:07 Test Item Value Reference Range Interpretation Comments Alk Phos (test 94 U/L 40-129 Testing Perfo rmed at code = 6768-6) [facility] Ambul atory Care Bldg, [address], [place] [address] PAIGE (test code Schedule same day = PAIGE) tests/clinic [facility] [id number] 14:14:07 Test Item Value Reference Range Interpretation Comments Alk Phos (test 94 U/L 40-129 Testing Perfo rmed at code = 6768-6) [facility] Ambul atory Care [facility], [address], [place] [address] PAIGE (test code Schedule same day = PAIGE) tests/clinic [facility]ro[facility] [id number] 14:14:06 Test Item Value Reference Range Interpretation Comments Sodium Lvl (test 141 See_Comment Testing Per formed code = 2951-2) at [facility] Hl7 Developer Bldg, [address], [address], [place], [place] [address] [Automated mess age] The system [employer] generated this result transmit lakhwinder reference range : 136 - 145 mEq/L . The reference r jose was not used to interpret this result as normal/abnormal . Potassium Lvl 3.9 See_Comment Testing Perfor med (test code = at [facility] 2823-3) Merged With [facility], [address] [place] [address], [address], [place] [phone] [Automated mess age] The system [employer] generated this result transmit lakhwinder reference range : 3.5 - 5.1 mEq/L . The reference r jose was not used to interpret this result as normal/abnormal . Chloride (test 105 See_Comment Testing Perfo rmed code = 2075-0) at [facility], [facility], [address], [place], [place] [address] [Automated mess age] The system [employer] generated this result transmit lakhwinder reference range : 98 - 107 mEq/L. Th e reference range was not used to interpret this result as normal/abnormal . CO2 (test code = 25 See_Comment Testing Per formed 2028-02) at [facility], [address] [place] [address], [address], [place] [address] [Automated mess age] The system [employer] generated this result transmit lakhwinder reference range : 22 - 29 mEq/L. The reference range was not used to interpret this result as normal/abnormal . Anion Gap (test 11 See_Comment Testing Perf ormed code = 41449-5) at [facility], [address] [place] [address], [address], [place] [address] [Automated mess age] The system [employer] generated this result transmit lakhwinder reference range : 4 - 14 mEq/L. The reference range was not used to interpret this result as normal/abnormal . PAIGE (test code = Schedule same day PAIGE) tests/clinic appt [facility] Cancer PaigeElectrolyte [id number] 14:14:06 Test Item Value Reference Range Interpretation Comments Sodium Lvl (test 141 See_Comment Testing Per formed code = 2951-2) at [facility], [address] [place] [address], [address], [place] [address] [Automated mess age] The system [employer] generated this result transmit lakhwinder reference range : 136 - 145 mEq/L . The reference r jose was not used to interpret this result as normal/abnormal . Potassium Lvl 3.9 See_Comment Testing Perfor med (test code = at [facility] 2823-3) Merged With [facility], [facility], [address], [place], [place] [address] [Automated mess age] The system [employer] generated this result transmit lakhwinder reference range : 3.5 - 5.1 mEq/L . The reference r jose was not used to interpret this result as normal/abnormal . Chloride (test 105 See_Comment Testing Perfo rmed code = 2075-0) at [facility], [address], [address], [place] [address] [Automated mess age] The system [employer] generated this result transmit lakhwinder reference range : 98 - 107 mEq/L. Th e reference range was not used to interpret this result as normal/abnormal . CO2 (test code = 25 See_Comment Testing Per formed 2028-02) at [facility], [address] [facility], [address], [place] [address] [Automated mess age] The system [employer] generated this result transmit lakhwinder reference range : 22 - 29 mEq/L. The reference range was not used to interpret this result as normal/abnormal . Anion Gap (test 11 See_Comment Testing Perf ormed code = 62533-5) at [facility], [facility], [address], [place] [address] [Automated mess age] The system [employer] generated this result transmit lakhwinder reference range : 4 - 14 mEq/L. The reference range was not used to interpret this result as normal/abnormal . PAIGE (test code = Schedule same day PAIGE) tests/clinic appt [facility] PaigeElectrolyte [id number] 14:14:06 Test Item Value Reference Range Interpretation Comments Sodium Lvl (test 141 See_Comment Testing Per formed code = 2951-2) at [facility] Merged With [facility], [facility], [address], [place] [address] [Automated mess age] The system [employer] generated this result transmit lakhwinder reference range : 136 - 145 mEq/L . The reference r jose was not used to interpret this result as normal/abnormal . Potassium Lvl 3.9 See_Comment Testing Perfor med (test code = at [facility] 2823-3) Merged With [facility], [facility], [address], [place] [address] [Automated mess age] The system [employer] generated this result transmit lakhwinder reference range : 3.5 - 5.1 mEq/L . The reference r jose was not used to interpret this result as normal/abnormal . Chloride (test 105 See_Comment Testing Perfo rmed code = 2075-0) at [facility] Hl7 Developer [facility], [address], [place] [address] [Automated mess age] The system [employer] generated this result transmit lakhwinder reference range : 98 - 107 mEq/L. Th e reference range was not used to interpret this result as normal/abnormal . CO2 (test code = 25 See_Comment Testing Per formed 2028-02) at [facility] Merged With [facility], [facility], [address], [place] [address] [Automated mess age] The system [employer] generated this result transmit lakhwinder reference range : 22 - 29 mEq/L. The reference range was not used to interpret this result as normal/abnormal . Anion Gap (test 11 See_Comment Testing Perf ormed code = 07766-1) at [facility] Hl7 Developer [facility], [address] [facility], [address], [place] [address] [Automated mess age] The system [employer] generated this result transmit lakhwinder reference range : 4 - 14 mEq/L. The reference range was not used to interpret this result as normal/abnormal . PAIGE (test code = Schedule same day PAIGE) tests/clinic appt [facility] PaigeElectrolyte [id number] 14:14:06 Test Item Value Reference Range Interpretation Comments Sodium Lvl (test 141 See_Comment Testing Per formed code = 2951-2) at [facility] Hl7 Developer [facility], [address], [place] [address] [Automated mess age] The system [employer] generated this result transmit lakhwinder reference range : 136 - 145 mEq/L . The reference r jose was not used to interpret this result as normal/abnormal . Potassium Lvl 3.9 See_Comment Testing Perfor med (test code = at [facility] 2823-3) Hl7 Developer [facility], [address], [place] [address] [Automated mess age] The system whic h generated this result transmit lakhwinder reference range : 3.5 - 5.1 mEq/L . The reference r jose was not used to interpret this result as normal/abnormal . Chloride (test 105 See_Comment Testing Perfo rmed code = 2075-0) at [facility] Hl7 Developer Bldg, [address] [facility], [address], [place] [address] [Automated mess age] The system [employer] generated this result transmit lakhwinder reference range : 98 - 107 mEq/L. Th e reference range was not used to interpret this result as normal/abnormal . CO2 (test code = 25 See_Comment Testing Per formed 2028-02) at [facility], [address] [place] [address], [address], [place] [address] [Automated mess age] The system [employer] generated this result transmit lakhwinder reference range : 22 - 29 mEq/L. The reference range was not used to interpret this result as normal/abnormal . Anion Gap (test 11 See_Comment Testing Perf ormed code = 60910-6) at [facility], [facility], [address], [place] [address] [Automated mess age] The system [employer] generated this result transmit lakhwinder reference range : 4 - 14 mEq/L. The reference range was not used to interpret this result as normal/abnormal . PAIGE (test code = Schedule same day PAIGE) tests[facility]cl[facility] [id number] 14:14:05 Test Item Value Reference Range Interpretation Comments Albumin Lvl (test 4.0 See_Comment Testing Pe rformed at code = 1751-7) [facility] Ambul at[facility], [address] [place] [address], [address], [place] [address] [Automate d message] The sy stem which generated this result transmit lakhwinder reference range : 3.5 - 5.2 gm/dL. Th e reference range was not used to interpret this result as normal/abnormal . PAIGE (test code = Schedule same day PAIGE) tests/clinic [facility] [id number] 14:14:05 Test Item Value Reference Range Interpretation Comments Albumin Lvl (test 4.0 See_Comment Testing Pe rformed at code = 1751-7) [facility] Ambul atory Care Bldg, [address], [place] [address] [Automate d message] The sy stem which generated this result transmit lakhwinder reference range : 3.5 - 5.2 gm/dL. Th e reference range was not used to interpret this result as normal/abnormal . PAIGE (test code = Schedule same day PAIGE) tests/clinic [facility] [id number] 14:14:05 Test Item Value Reference Range Interpretation Comments Albumin Lvl (test 4.0 See_Comment Testing Pe rformed at code = 1751-7) [facility] Ambul atory Care Bldg, [address], [place] [address] [Automate d message] The sy stem which generated this result transmit lakhwinder reference range : 3.5 - 5.2 gm/dL. Th e reference range was not used to interpret this result as normal/abnormal . PAIGE (test code = Schedule same day PAIGE) tests/clinic [facility] [id number] 14:14:05 Test Item Value Reference Range Interpretation Comments Albumin Lvl (test 4.0 See_Comment Testing Pe rformed at code = 1751-7) [facility] Ambul atory Care Bldg, [address], [address], [place] [address] [Automate d message] The sy stem which generated this result transmit lakhwinder reference range : 3.5 - 5.2 gm/dL. Th e reference range was not used to interpret this result as normal/abnormal . PAIGE (test code = Schedule same day PAIGE) tests/clinic [facility] Aminotransferase 2022-09-13 14:14:04 Test Item Value Reference Range Interpretation Comments AST (test code 12 U/L <=40 Testing Perfo rmed at = 1920-8) [facility] Ambulat ory Care Bldg, [address], [place] [address] PAIGE (test code Schedule same day = PAIGE) tests/clinic [facility] Aminotransferase 2022-09-13 14:14:04 Test Item Value Reference Range Interpretation Comments AST (test code 12 U/L <=40 Testing Perfo rmed at = 1920-8) [facility] Ambulat ory Care Bldg, [address], [place] [address] PAIGE (test code Schedule same day = PAIGE) tests[facility] 2022-[facility]-13 14:14:04 Test Item Value Reference Range Interpretation Comments AST (test code 12 U/L <=40 Testing Perfo rmed at = 1920-8) [facility], [address], [address], [place] [address] PAIGE (test code Schedule same day = PAIGE) tests[facility] Amin[facility] 2022-09-13 14:14:04 Test Item Value Reference Range Interpretation Comments AST (test code 12 U/L <=40 Testing Perfo rmed at = 1920-8) [facility], [address], [address], [place] [address] PAIGE (test code Schedule same day = PAIGE) tests/clinic [place] [id number] 14:14:03 Test Item Value Reference Range Interpretation Comments ALT (test code 7 U/L <=41 Testing Perfo rmed at = 1742-6) [facility], [address], [address], [place] [address] PAIGE (test code Schedule same day = PAIGE) tests/clinic [place] [id number] 14:14:03 Test Item Value Reference Range Interpretation Comments ALT (test code 7 U/L <=41 Testing Perfo rmed at = 1742-6) [facility], [address], [address], [place] [address] PAIGE (test code Schedule same day = PAIGE) tests/clinic [place] [id number] 14:14:03 Test Item Value Reference Range Interpretation Comments ALT (test code 7 U/L <=41 Testing Perfo rmed at = 1742-6) [facility], [address], [address], [place] [address] PAIGE (test code Schedule same day = PAIGE) tests[facility] 14:14:03 Test Item Value Reference Range Interpretation Comments ALT (test code 7 U/L <=41 Testing Perfo rmed at = 1742-6) [facility] [address] [facility], [address], [place] [address] PAIGE (test code Schedule same day = PAIGE) tests/clinic appt [facility].Serum Wossuxkknf7039-55-92 14:14:01 Test Item Value Reference Range Interpretation Comments Creatinine (test code 0.62 mg/dL 0.67-1.17 L Testin g Performed = 2160-0) at [facility], [address] [place] [address], [address], [place] [address] PAIGE (test code = PAIGE) Schedule same day tests/clinic appt Lab Interpretation Abnormal (test code = 16228-2) [facility].Serum Lfrfsbtjoe3513-51-76 14:14:01 Test Item Value Reference Range Interpretation Comments Creatinine (test code 0.62 mg/dL 0.67-1.17 L Testin g Performed = 2160-0) at [facility], [address] [place] [address], [address], [place] [address] PAIGE (test code = PAIGE) Schedule same day tests/clinic appt Lab Interpretation Abnormal (test code = 02342-7) [facility].Serum Hdqqpfxibn1721-92-73 14:14:01 Test Item Value Reference Range Interpretation Comments Creatinine (test code 0.62 mg/dL 0.67-1.17 L Testin g Performed = 2160-0) at [facility], [address] [place] [address], [address], [place] [address] PAIGE (test code = PAIGE) Schedule same day tests/clinic appt Lab Interpretation Abnormal (test code = 79060-1) [facility].Serum Ynjtjiswys6833-22-15 14:14:01 Test Item Value Reference Range Interpretation Comments Creatinine (test code 0.62 mg/dL 0.67-1.17 L Testin g Performed = 2160-0) at [facility], [address], [address], [place], [place] [address] PAIGE (test code = PAIGE) Schedule same day tests[facility] Lab Interpretation Abnormal (test code = 40750-8) [facility] 14:14:00 Test Item Value Reference Range Interpretation Comments BUN (test code 10 mg/dL 6-23 Testing Perfo rmed at = 3094-0) [facility], [address], [address], [place] [address] PAIGE (test code Schedule same day = PAIGE) tests/clinic [facility]2023-[facility]-17 14:14:00 Test Item Value Reference Range Interpretation Comments BUN (test code 10 mg/dL 6-23 Testing Perfo rmed at = 3094-0) [facility] Lab Ambulat ory Care [facility], [address], [address], [place] [address] PAIGE (test code Schedule same day = PAIGE) tests/clinic [facility]2023-03-17 14:14:00 Test Item Value Reference Range Interpretation Comments BUN (test code 10 mg/dL 6-23 Testing Perfo rmed at = 3094-0) [facility], [address], [address], [place] [address] PAIGE (test code Schedule same day = PAIGE) tests/clinic [facility]17 14:14:00 Test Item Value Reference Range Interpretation Comments BUN (test code 10 mg/dL 6-23 Testing Perfo rmed at = 3094-0) [facility], [address], [address], [place] [address] PAIGE (test code Schedule same day = PAIGE) tests/clinic [facility] [id number] 14:13:59 Test Item Value Reference Range Interpretation Comments Glucose Level (test 102 mg/dL 70-99 H Effectiv e 01/24/16, code = 2345-7) the glucose reference intervals have been updated ba sed on [place] [employer] guidelines (Standards of Medical Care in Diabetes 2016. Diabetes Care 2016; 39: S13-S22).Fastin g blood glucose:Normal: 70-99 mg/dLImpaired fasting glucose (increased risk for diabetes or pre-diabetes): 100-125 mg/dLDiabetes mellitus: >/=12 6 mg/dL Random bl ood glucose:Normal: 70-199 mg/dLNot e: Random glucose >100 mg/dL is associated with increased risk for diabetes Testin g Performed at [facility], [facility] [facility], [address], [place] [address] PAIGE (test code = PAIGE) Schedule same day tests/clinic appt Lab Interpretation Abnormal (test code = 59717-1) [facility] Center[facility] [id number] 14:13:59 Test Item Value Reference Range Interpretation Comments Glucose Level (test 102 mg/dL 70-99 H Effectiv e 01/24/16, code = 2345-7) the glucose reference intervals have been updated ba sed on [place] [employer] guidelines (Standards of Medical Care in Diabetes 2016. Diabetes Care 2016; 39: S13-S22).Fastin g blood glucose:Normal: 70-99 mg/dLImpaired fasting glucose (increased risk for diabetes or pre-diabetes): 100-125 mg/dLDiabetes mellitus: >/=12 6 mg/dL Random bl ood glucose:Normal: 70-199 mg/dLNot e: Random glucose >100 mg/dL is associated with increased risk for diabetes Testin g Performed at [facility], [address] [facility], [address], [place] [address] PAIGE (test code = PAIGE) Schedule same day tests/clinic appt Lab Interpretation Abnormal (test code = 42220-9) [facility] [id number] 14:13:59 Test Item Value Reference Range Interpretation Comments Glucose Level (test 102 mg/dL 70-99 H Effectiv e 01/24/16, code = 2345-7) the glucose reference intervals have been updated ba sed on [place] [employer] guidelines (Standards of Medical Care in Diabetes 2016. Diabetes Care 2016; 39: S13-S22).Fastin g blood glucose:Normal: 70-99 mg/dLImpaired fasting glucose (increased risk for diabetes or pre-diabetes): 100-125 mg/dLDiabetes mellitus: >/=12 6 mg/dL Random bl ood glucose:Normal: 70-199 mg/dLNot e: Random glucose >100 mg/dL is associated with increased risk for diabetes Testin g Performed at [facility], [address] [facility], [address], [place] [address] PAIGE (test code = PAIGE) Schedule same day tests/clinic appt Lab Interpretation Abnormal (test code = 35696-2) [facility] [id number] 14:13:59 Test Item Value Reference Range Interpretation Comments Glucose Level (test 102 mg/dL 70-99 H Effectiv e 01/24/16, code = 2345-7) the glucose reference intervals have been updated ba sed on [place] [employer] guidelines (Standards of Medical Care in Diabetes 2016. Diabetes Care 2016; 39: S13-S22).Fastin g blood glucose:Normal: 70-99 mg/dLImpaired fasting glucose (increased risk for diabetes or pre-diabetes): 100-125 mg/dLDiabetes mellitus: >/=12 6 mg/dL Random bl ood glucose:Normal: 70-199 mg/dLNot e: Random glucose >100 mg/dL is associated with increased risk for diabetes Testin g Performed at [facility], [facility] [facility], [address], [place] [address] PAIGE (test code = PAIGE) Schedule same day tests/clinic appt Lab Interpretation Abnormal (test code = 64313-2) [facility] CenterPOC [id number] 13:41:08 Test Item Value Reference Range Interpretation Comments POC Crea (test 0.6 mg/dL 0.6-1.3 Medications, code = 92025-1) especially h ydroxyurea or supplements, such as [...] 106 See_Comment The eGFRcr is code = 02295) calculated wit h the 2020 CKD-EPI creatinine equa tion using creatinin e, patient's age, and sex for adults 18 y ears of age and older. Other factors, especi ally muscle mass, ma y affect accuracy and need to be considered.Acco rding to the Kidney D isease: Improving Globa l Outcomes (KDIGO ) CKD Work Group 2012 Clinical Practi ce Guideline, director multimedia henrry kidney disease (CKD) is defined as [...] Yes (test code = 6672) Performing Lab [facility] Main Main [place] [facility] (test code = [facility] [address]) Clinical Lab, [address] [facility], [place], [place] [address]; Whipped Topping Supervisor: Aletha Arciniega MD; Waived Point of Care Testing - Rosina real MD [facility] Edpcwtivir2121-50-16 13:41:08 Test Item Value Reference Range Interpretation Comments POC Crea (test 0.6 mg/dL 0.6-1.3 Medications, code = 04996-4) especially h ydroxyurea or supplements, such as ascorbate, c an interfere with test results causing a falsely and significantly h igher result than exp ected. If a problem is suspected with a patient's resul t, a sample [facility]. Method descript ion: [...] 106 See_Comment The eGFRcr is code = 68997) calculated wit h the 2020 CKD-EPI creatinine equa tion using creatinin e, patient's age, and sex for adults 18 y ears of age and older. Other factors, especi ally muscle mass, ma y affect accuracy and need to be considered.Acco rding to the Kidney D isease: Improving Globa l Outcomes (KDIGO ) CKD Work Group 2012 Clinical Practi ce Guideline, director multimedia henrry kidney disease (CKD) is defined as [...] Yes (test code = 6672) Performing Lab [facility] (test code = [facility] [place] [address]) Clinical Lab, [address] [facility], [place], [place] [address]; Whipped Topping Supervisor: Aletha Arciniega MD; Waived Point of Care Testing - Rosina real MD [facility] Ufxkjnxfhs4240-51-23 13:41:08 Test Item Value Reference Range Interpretation Comments POC Crea (test 0.6 mg/dL 0.6-1.3 Medications, code = 19302-6) especially h ydroxyurea or supplements, such as [...] 106 See_Comment The eGFRcr is code = 90131) calculated wit h the 2020 CKD-EPI creatinine equa tion using creatinin e, patient's age, and sex for adults 18 y ears of age and older. Other factors, especi ally muscle mass, ma y affect accuracy and need to be considered.Acco rding to the Kidney D isease: Improving Globa l Outcomes (KDIGO ) CKD Work Group 2012 Clinical Practi ce Guideline, director multimedia henrry kidney disease (CKD) is defined as [...] Yes (test code = 6672) Performing Lab [facility] (test code = [facility] [place] [address]) Clinical Lab, [address] [place] [address], [place], [place] [address]; Whipped Topping Supervisor: Aletha Arciniega MD; Waived Point of Care Testing - Rosina real MD [facility] Hhcyseucvt0773-83-14 13:41:08 Test Item Value Reference Range Interpretation Comments POC Crea (test 0.6 mg/dL 0.6-1.3 Medications, code = 20421-7) especially h ydroxyurea or supplements, such as [...] 106 See_Comment The eGFRcr is code = 45894) calculated wit h the 2020 CKD-EPI creatinine equa tion using creatinin e, patient's age, and sex for adults 18 y ears of age and older. Other factors, especi ally muscle mass, ma y affect accuracy and need to be considered.Acco rding to the Kidney D isease: Improving Globa l Outcomes (KDIGO ) CKD Work Group 2012 Clinical Practi ce Guideline, director multimedia henrry kidney disease (CKD) is defined as [...] Yes (test code = 6672) Performing Lab [facility] (test code = [facility] [address]) Clinical Lab, [address] [facility], [place], [place] [address]; Whipped Topping Supervisor: Aletha Arciniega MD; Waived Point of Care Testing - Rosina real MD [facility] MD [facility] YwijhpWtstsuxxepls8023-75-61 13:32:19 Test Item Value Reference Range Interpretation Comments Neutrophil % (test 48.8 % 42.0-66.0 As part o f code = 770-8) Differential performed at [facility], [address] [facility], [address], [place] [address] Lymphocyte % (test 34.8 % 24.0-44.0 code = 736-9) Monocyte % (test code 9.1 % 2.0-7.0 H = 5905-5) Eosinophil % (test 6.6 % 1.0-4.0 H code = 713-8) Basophil % (test code 0.7 % 0.0-1.0 = 706-2) IGRE % (test code = 0.0 % 0.0-0.4 IGRE % c ount 36427-7) includes Metamyelocytes, Myelocytes, and Promyelocytes. As part of Differential performed at [facility], [facility] [facility], [address], [place] [address] Neutrophil Abs (test 3.37 K/uL 1.70-7.30 code = 751-8) Lymphocyte Abs (test 2.41 K/uL 1.00-4.80 code = 731-0) Monocyte Abs (test 0.63 K/uL 0.08-0.70 code = 742-7) Eosinophil Abs (test 0.46 K/uL 0.04-0.40 H code = 711-2) Basophil Abs (test 0.05 K/uL 0.00-0.10 code = 704-7) IG Abs (test code = 0.00 K/uL 0.00-0.04 71531-1) PAIGE (test code = PAIGE) Schedule same day tests/clinic appt Lab Interpretation Abnormal (test code = 04419-7) [facility] Cancer LwwtyyGjecouqbccah2118-28-27 13:32:19 Test Item Value Reference Range Interpretation Comments Neutrophil % (test 48.8 % 42.0-66.0 As part o f code = 770-8) Differential performed at [facility], [address] [facility], [address], [place] [address] Lymphocyte % (test 34.8 % 24.0-44.0 code = 736-9) Monocyte % (test code 9.1 % 2.0-7.0 H = 5905-5) Eosinophil % (test 6.6 % 1.0-4.0 H code = 713-8) Basophil % (test code 0.7 % 0.0-1.0 = 706-2) IGRE % (test code = 0.0 % 0.0-0.4 IGRE % c ount 39660-4) includes Metamyelocytes, Myelocytes, and Promyelocytes. As part of Differential performed at [facility], [address] [place] [address], [address], [place] [address] Neutrophil Abs (test 3.37 K/uL 1.70-7.30 code = 751-8) Lymphocyte Abs (test 2.41 K/uL 1.00-4.80 code = 731-0) Monocyte Abs (test 0.63 K/uL 0.08-0.70 code = 742-7) Eosinophil Abs (test 0.46 K/uL 0.04-0.40 H code = 711-2) Basophil Abs (test 0.05 K/uL 0.00-0.10 code = 704-7) IG Abs (test code = 0.00 K/uL 0.00-0.04 90029-7) PAIGE (test code = PAIGE) Schedule same day tests/clinic appt Lab Interpretation Abnormal (test code = 66146-6) [facility] Cancer JzxxlfTztnmzwgicen4936-08-40 13:32:19 Test Item Value Reference Range Interpretation Comments Neutrophil % (test 48.8 % 42.0-66.0 As part o f code = 770-8) Differential performed at [facility], [address] [place] [address], [address], [place] [address] Lymphocyte % (test 34.8 % 24.0-44.0 code = 736-9) Monocyte % (test code 9.1 % 2.0-7.0 H = 5905-5) Eosinophil % (test 6.6 % 1.0-4.0 H code = 713-8) Basophil % (test code 0.7 % 0.0-1.0 = 706-2) IGRE % (test code = 0.0 % 0.0-0.4 IGRE % c ount 20704-3) includes Metamyelocytes, Myelocytes, and Promyelocytes. As part of Differential performed at [facility], [address] [place] [address], [address], [place] [address] Neutrophil Abs (test 3.37 K/uL 1.70-7.30 code = 751-8) Lymphocyte Abs (test 2.41 K/uL 1.00-4.80 code = 731-0) Monocyte Abs (test 0.63 K/uL 0.08-0.70 code = 742-7) Eosinophil Abs (test 0.46 K/uL 0.04-0.40 H code = 711-2) Basophil Abs (test 0.05 K/uL 0.00-0.10 code = 704-7) IG Abs (test code = 0.00 K/uL 0.00-0.04 39370-9) PAIGE (test code = PAIGE) Schedule same day tests/clinic appt Lab Interpretation Abnormal (test code = 61330-3) [facility] Cancer BpcupaXsjcqlsaiqvn5765-62-53 13:32:19 Test Item Value Reference Range Interpretation Comments Neutrophil % (test 48.8 % 42.0-66.0 As part o f code = 770-8) Differential performed at [facility], [address] [facility], [address], [place] [address] Lymphocyte % (test 34.8 % 24.0-44.0 code = 736-9) Monocyte % (test code 9.1 % 2.0-7.0 H = 5905-5) Eosinophil % (test 6.6 % 1.0-4.0 H code = 713-8) Basophil % (test code 0.7 % 0.0-1.0 = 706-2) IGRE % (test code = 0.0 % 0.0-0.4 IGRE % c ount 33104-8) includes Metamyelocytes, Myelocytes, and Promyelocytes. As part of Differential performed at [facility], [address] [facility], [address], [place] [address] Neutrophil Abs (test 3.37 K/uL 1.70-7.30 code = 751-8) Lymphocyte Abs (test 2.41 K/uL 1.00-4.80 code = 731-0) Monocyte Abs (test 0.63 K/uL 0.08-0.70 code = 742-7) Eosinophil Abs (test 0.46 K/uL 0.04-0.40 H code = 711-2) Basophil Abs (test 0.05 K/uL 0.00-0.10 code = 704-7) IG Abs (test code = 0.00 K/uL 0.00-0.04 00288-2) PAIGE (test code = PAIGE) Schedule same day tests/clinic appt Lab Interpretation Abnormal (test code = 90312-1) [facility] Paige.PRE1104-35-22 13:32:09 Test Item Value Reference Range Interpretation [...] performed at [facility], [address] [facility], [address], [place] [address] [Automated mess age] The system [employer] h generated this result transmit lakhwinder reference range : 14.0 - 18.0 gm/ dL. The reference r jose was not used to interpret this result as normal/abnormal . Hct (test code = 45.2 % 40.0-54.0 As part of CBC or 4544-3) as an individua l orderable testi ng performed at [facility], [address] [facility], [address], [place] [address] MCV (test code = [...] (test code = 62.4 fL 35.1-46.3 H 29317-1) RDW-CV (test code = 17.9 % 12.0-15.5 H 788-0) Platelet count (test 310 K/uL 140-440 As part of CBC or code = 777-3) as an individu al orderable testi ng performed at [facility], [address] [place] [address], [address], [place] [address] MPV (test code = 9.6 fL 4.0-10.4 33090-3) INRBC (test code = 0.0 % <=0.0 The INRBC 78537-5) (instrument NRB C) value reflects the enumerationof nucleated red b lood cells contained in a 200uL sampleo f whole blood analyzed by the instrument. Thi s value maydiffer from the NRBC v alue reported in a manual differential,wh ich is based on a 1 00 cell differenti al. As part of CBC testing perform ed at [facility] [facility], [address], [place] [address] PAIGE (test code = PAIGE) Schedule same day tests/clinic appt Lab Interpretation Abnormal (test code = 65253-1) [facility] Paige.[id number] 13:32:09 Test Item Value Reference Range Interpretation [...] performed at [facility], [address] [place] [address], [address], [place] [address] [Automated mess age] The system [employer] h generated this result transmit lakhwinder reference range : 14.0 - 18.0 gm/ dL. The reference r jose was not used to interpret this result as normal/abnormal . Hct (test code = 45.2 % 40.0-54.0 As part of CBC or 4544-3) as an individua l orderable testi ng performed at [facility], [address] [place] [address], [address], [place] [address] MCV (test code = [...] (test code = 62.4 fL 35.1-46.3 H 75074-2) RDW-CV (test code = 17.9 % 12.0-15.5 H 788-0) Platelet count (test 310 K/uL 140-440 As part of CBC or code = 777-3) as an individu al orderable testi ng performed at [facility] Lab Hl[facility] Developer [facility], [address] [facility], [address], [place] [address] MPV (test code = 9.6 fL 4.0-10.4 66767-4) INRBC (test code = 0.0 % <=0.0 The INRBC 93833-5) (instrument NRB C) value reflects the enumerationof nucleated red b lood cells contained in a 200uL sampleo f whole blood analyzed by the instrument. Thi s value maydiffer from the NRBC v alue reported in a manual differential,wh ich is based on a 1 00 cell differenti al. As part of CBC testing perform ed at [facility] Lab Hl[facility] Developer [id number] [facility], [address], [place] [address] PAIGE (test code = PAIGE) Schedule same day tests/clinic appt Lab Interpretation Abnormal (test code = 58358-2) [facility] Paige.[id number] 13:32:09 Test Item Value Reference Range Interpretation Comments WBC (test code = 6.9 K/uL 4.0-11.0 6690-2) RBC (test code = 4.71 See_Comment [Automated 043-8) message] The sy stem which generated this result transmitted reference range : 4.50 - 6.00 M/u L. The reference r jose was not used to interpret this result as normal/abnormal . Hgb (test code = 14.5 See_Comment As part of CBC or 718-7) as an individua l orderable testi ng performed at [facility], [address] [facility], [address], [place] [address] [Automated mess age] The [...] performed at [facility], [address] [facility], [address], [place] [address] MCV (test code = [...] (test code = 62.4 fL 35.1-46.3 H 31800-5) RDW-CV (test code = 17.9 % 12.0-15.5 H 788-0) Platelet count (test 310 K/uL 140-440 As part of CBC or code = 777-3) as an individu al orderable testi ng performed at [facility], [address] [facility], [address], [place] [address] MPV (test code = 9.6 fL 4.0-10.4 83877-2) INRBC (test code = 0.0 % <=0.0 The INRBC 38097-1) (instrument NRB C) value reflects the enumerationof nucleated red b lood cells contained in a 200uL sampleo f whole blood analyzed by the instrument. Thi s value maydiffer from the NRBC v alue reported in a manual differential,wh ich is based on a 1 00 cell differenti al. As part of CBC testing perform ed at [facility] [facility], [address], [place] [address] PAIGE (test code = PAIGE) Schedule same day tests/clinic appt Lab Interpretation Abnormal (test code = 46364-3) [facility] Paige.[id number] 13:32:09 Test Item Value Reference Range Interpretation [...] performed at [facility], [address] [facility], [address], [place] [address] [Automated mess age] The system [employer] h generated this result transmit lakhwinder reference range : 14.0 - 18.0 gm/ dL. The reference r jose was not used to interpret this result as normal/abnormal . Hct (test code = 45.2 % 40.0-54.0 As part of CBC or 4544-3) as an individua l orderable testi ng performed at [facility], [address], [address], [place], [place] [address] MCV (test code = [...] (test code = 62.4 fL 35.1-46.3 H 50462-5) RDW-CV (test code = 17.9 % 12.0-15.5 H 788-0) Platelet count (test 310 K/uL 140-440 As part of CBC or code = 777-3) as an individu al orderable testi ng performed at [facility] Lab [facility], [address], [address], [place], [place] [address] MPV (test code = 9.6 fL 4.0-10.4 91536-4) INRBC (test code = 0.0 % <=0.0 The INRBC 74397-7) (instrument NRB C) value reflects the enumerationof nucleated red b lood cells contained in a 200uL sampleo f whole blood analyzed by the instrument. Thi s value maydiffer from the NRBC v alue reported in a manual differential,wh ich is based on a 1 00 cell differenti al. As part of CBC testing perform ed at [facility] Lab [facility] [id number], [address], [place] [address] PAIGE (test code = PAIGE) Schedule same day tests/clinic appt Lab Interpretation Abnormal (test code = 94069-9) [facility] 17[facility]30:06 Test Item Value Reference Range Interpretation Comments T3 Total (test code = 3053-6) 153 ng/dL 80-200 [facility] 17:30:06 Test Item Value Reference Range Interpretation Comments T3 Total (test code = 3053-6) 153 ng/dL 80-200 [facility]T320[facility] 17:30:06 Test Item Value Reference Range Interpretation Comments T3 Total (test code = 3053-6) 153 ng/dL 80-200 [facility]T32022[facility]12-09 17:30:06 Test Item Value Reference Range Interpretation Comments T3 Total (test code = 3053-6) 153 ng/dL 80-200 [facility]T320[facility] 17:30:06 Test Item Value Reference Range Interpretation Comments T3 Total (test code = 3053-6) 153 ng/dL 80-200 [facility]T32022[facility]12-[facility] 17:30:06 Test Item Value Reference Range Interpretation Comments T3 Total (test code = 3053-6) 153 ng/dL 80-200 [facility] CenterFree [id number] 16:45:54 Test Item Value Reference Range Interpretation Comments T4 Free (test code 1.01 ng/dL 0.93-1.70 Testing P erformed at [facility] = 3024-7) Lab Merged With [facility], [address], [address] [id number] 16:45:54 Test Item Value Reference Range Interpretation Comments T4 Free (test code 1.01 ng/dL 0.93-1.70 Testing P erformed at [facility] = 3024-7) Lab Merged With [facility], [address], [address], [address] [id number] 16:45:54 Test Item Value Reference Range Interpretation Comments T4 Free (test code 1.01 ng/dL 0.93-1.70 Testing P erformed at [facility] = 3024-7) [facility], [address], [address], [address] [id number] 16:45:54 Test Item Value Reference Range Interpretation Comments T4 Free (test code 1.01 ng/dL 0.93-1.70 Testing P erformed at [facility] = 3024-7) Lab Merged With [facility], [address], [address], [address] [id number] 16:45:54 Test Item Value Reference Range Interpretation Comments T4 Free (test code 1.01 ng/dL 0.93-1.70 Testing P erformed at [facility] = 3024-7) Lab Merged With [facility], [address], [address], [address] [id number] 16:45:54 Test Item Value Reference Range Interpretation Comments T4 Free (test code 1.01 ng/dL 0.93-1.70 Testing P erformed at [facility] = 3024-7) [facility], [address], [address], [address]TSH2022-12-09 16:45:52 Test Item Value Reference Range Interpretation Comments TSH (test code = 0.65 See_Comment Note: New M ethodology and 53495-8) Reference Range change effective 2017 at 1400 Testing Perform ed at [facility] Hl7 Developer [facility], [address], [address], [place] [address] [Automated mess age] The system which ge nerated this result transmit lakhwinder reference range : 0.27 - 4.20 mcunit/mL. The reference range was not used to interpr et this result as paras l/abnormal. [facility] 16:45:52 Test Item Value Reference Range Interpretation Comments TSH (test code = 0.65 See_Comment Note: New Tate ethodology and 64511-7) Reference Range change effective 2017 at 1400 Testing Perform ed at [facility] Hl7 Developer [facility], [address], [address], [place] [address] [Automated mess age] The system which ge nerated this result transmit lakhwinder reference range : 0.27 - 4.20 mcunit/mL. The reference range was not used to interpr et this result as paras l/abnormal. [facility]TSH[facility] 16:45:52 Test Item Value Reference Range Interpretation Comments TSH (test code = 0.65 See_Comment Note: New M ethodology and 40751-7) Reference Range change effective 2017 at 1400 Testing Perform ed at [facility] Hl7 Developer [facility], [address], [address], [place] [address] [Automated mess age] The system which ge nerated this result transmit lakhwinder reference range : 0.27 - 4.20 mcunit/mL. The reference range was not used to interpr et this result as paras l/abnormal. [facility]TSH[facility] 16:45:52 Test Item Value Reference Range Interpretation Comments TSH (test code = 0.65 See_Comment Note: New M ethodology and 07698-8) Reference Range change effective 2017 at 1400 Testing Perform ed at [facility] Hl7 Developer [facility], [address], [address], [place] [address] [Automated mess age] The system which ge nerated this result transmit lakhwinder reference range : 0.27 - 4.20 mcunit/mL. The reference range was not used to interpr et this result as paras l/abnormal. [facility] 16:45:52 Test Item Value Reference Range Interpretation Comments TSH (test code = 0.65 See_Comment Note: New M ethodology and 21198-5) Reference Range change effective 2017 at 1400 Testing Perform ed at [facility] Lab Hl7 Developer [facility], [address], [address], [place] [address] [Automated mess age] The system which ge nerated this result transmit lakhwinder reference range : 0.27 - 4.20 mcunit/mL. The reference range was not used to interpr et this result as paras l/abnormal. [facility]TSH[facility] 16:45:52 Test Item Value Reference Range Interpretation Comments TSH (test code = 0.65 See_Comment Note: New Tate ethodology and 26386-4) Reference Range change effective 2017 at 1400 Testing Perform ed at [facility] Lab Hl7 Developer [facility], [address], [place] [address] [Automated mess age] The system which ge nerated this result transmit lakhwinder reference range : 0.27 - 4.20 mcunit/mL. The reference range was not used to interpr et this result as paras l/abnormal. [facility] CenterFractionated [id number] 16:32:38 Test Item Value Reference Range Interpretation [...] concentrations above 28 g/L.Testing Per formed at [facility] Lab Ambulat ory Care [facility], [address], [address], [place] [address] [Automate d message] The system edison h generated this result transmitted ref erence range: <=1.2. T he reference range was not used to interpr et this result as normal/abnormal . Bili Direct (test See_Comment Indocyanin e Green (ICG) code = 1967-12) may cause fal sely elevated biliru bin results. Total and direct bilirubin must not be measured from s amples containing indo cyanine green. Testing Performed at [facility] Lab [facility], [address], [address], [place] [address] [Autom ated message] The sy stem which generated this result transmitted ref erence range: <=0.3. T he reference range was not used to interpr et this result as normal/abnormal . Bili Indirect (test See Note 0.0-0.9 Unable t o calculate code = 1970-06) Indirect Bili ruffin result due to some par ameters are outside rep ortable rangeTesting Pe rformed at [facility] Lab [facility], [address], [address], [facility] [address] [facility] Cancer PaigeFractionated [id number] 16:32:38 Test Item Value Reference Range Interpretation [...] concentrations above 28 g/L.Testing Per formed at [facility] Lab [facility], [address], [address], [place] [address] Bili Direct (test <=0.3 Indocyanin e Green (ICG) code = 1967-) may cause fal sely elevated biliru bin results. Total and direct bilirubin must not be measured from s amples containing indo cyanine green. Testing Performed at [facility] Lab [facility], [address], [address], [place] [address] Bili Indirect (test See Note 0.0-0.9 Unable t o calculate code = 1970-06) Indirect Bili ruffin result due to some par ameters are outside rep ortable rangeTesting Pe rformed at [facility] Lab Ambulat ory Care [facility], [address], [address], [place] [address] [facility] CenterGlomerular Filtration Rate 2022-06-07 16:32:36 Test Item Value Reference Range Interpretation Comments eGFR (test code = 103 See_Comment [place] [address]) the 2020 CKD-EP I creatinine equation using [...] a for CKD. Testing Perform ed at [facility] Lab Hl7 Developer [facility], [address], [address], [place], [place] [address] [Automated message] The sy stem which generated this result transmitted ref erence range: >=60 mL/min/1.7 3 sq. m. The reference range was not used to interpret th is result as normal/abnormal . [facility] CenterGlomerular Filtration Rate 2022-06-07 16:32:36 Test Item Value Reference Range Interpretation Comments eGFR (test code = 103 See_Comment [place] [address]) the 2020 CKD-EP I creatinine equation using [...] a for CKD. Testing Perform ed at [facility] Lab Hl7 Developer [facility], [address], [address], [place], [place] [address] [Automated message] The sy stem which generated this result transmitted ref erence range: >=60 mL/min/1.7 3 sq. m. The reference range was not used to interpret th is result as normal/abnormal . [facility] CenterUric [id number] 16:32:35 Test Item Value Reference Range Interpretation Comments Uric Acid (test 5.3 mg/dL 3.4-7.0 Testing Perf ormed at [facility] code = 3084-1) Lab Ambulator y Care [facility], [address], [place] [address] [facility] CenterUric [id number] 16:32:35 Test Item Value Reference Range Interpretation Comments Uric Acid (test 5.3 mg/dL 3.4-7.0 Testing Perf ormed at [facility] code = 3084-1) Lab Ambulator y Care [facility], [address], [place] [address] [facility] CenterUric [id number] 16:32:35 Test Item Value Reference Range Interpretation Comments Uric Acid (test 5.3 mg/dL 3.4-7.0 Testing Perf ormed at [facility] code = 3084-1) Lab Ambulator y Care [facility], [address], [place] [address] [facility] CenterUric [id number] 16:32:35 Test Item Value Reference Range Interpretation Comments Uric Acid (test 5.3 mg/dL 3.4-7.0 Testing Perf ormed at [facility] code = 3084-1) Lab Ambulator y Care Bl, [address], [address], [place] [address] [facility] CenterU[facility] [id number] 16:32:35 Test Item Value Reference Range Interpretation Comments Uric Acid (test 5.3 mg/dL 3.4-7.0 Testing Perf ormed at [facility] code = 3084-1) Lab Ambulator y Care [facility], [address], [place] [address] [facility] CenterUric [id number] 16:32:35 Test Item Value Reference Range Interpretation Comments Uric Acid (test 5.3 mg/dL 3.4-7.0 Testing Perf ormed at B code = 3084-1) Lab Ambulator y Care [facility], [address], [place] [address] [facility] CenterTotal [id number] 16:32:34 Test Item Value Reference Range Interpretation Comments Total Protein (test 7.0 g/dL 6.4-8.3 Testing Performed at B code = 2885-2) Lab Ambulator y Care [facility], [address], [place] [address] [facility] CenterTotal [id number] 16:32:34 Test Item Value Reference Range Interpretation Comments Total Protein (test 7.0 g/dL 6.4-8.3 Testing Performed at B code = 2885-2) Lab Ambulator y Care [facility], [address], [place] [address] [facility] CenterMagnesium [id number] 16:32:33 Test Item Value Reference Range Interpretation Comments Magnesium (test code = 1.9 mg/dL 1.6-2.6 [place] [address]-1) [facility] Lab Ambulat ory Care Bl, [address], [place] [address] [facility] CenterMagnesium [id number] 16:32:33 Test Item Value Reference Range Interpretation Comments Magnesium (test code = 1.9 mg/dL 1.6-2.6 [place] [address]-5) [facility] Lab Ambulat ory Care Bldg, [address], [place] [address] [facility] CenterMagnesium [id number] 16:32:33 Test Item Value Reference Range Interpretation Comments Magnesium (test code = 1.9 mg/dL 1.6-2.6 [place] [address]-5) [facility] Lab Ambulat ory Care Bldg, [address], [place] [address] [facility] CenterMagnesium [id number] 16:32:33 Test Item Value Reference Range Interpretation Comments Magnesium (test code = 1.9 mg/dL 1.6-2.6 [place] [address]-7) [facility] Lab Ambulat ory Care Bldg, [address], [place] [address] [facility] CenterMagnesium [id number] 16:32:33 Test Item Value Reference Range Interpretation Comments Magnesium (test code = 1.9 mg/dL 1.6-2.6 [place] [address]-6) [facility] Lab [facility]ulat ory Care Bldg, [address], [place] [address] [facility] CenterMagnesium [id number] 16:32:33 Test Item Value Reference Range Interpretation Comments Magnesium (test code = 1.9 mg/dL 1.6-2.6 [place] [address]-7) [facility] Lab Ambulat ory Care Bldg, [address], [place] [address] [facility] CenterCalcium [id number] 16:32:32 Test Item Value Reference Range Interpretation Comments Calcium Lvl (test 9.3 mg/dL 8.4-10.2 Testing Pe rformed at code = 49154-8) [facility] Lab Ambu latory Care Bldg, [address], [place], [place] [address] [facility] CenterCalcium [id number] 16:32:32 Test Item Value Reference Range Interpretation Comments Calcium Lvl (test 9.3 mg/dL 8.4-10.2 Testing Pe rformed at code = 49765-8) [facility] Lab Ambu latory [facility], [address], [place] [address] [facility] CenterAlkaline [id number] 16:32:31 Test Item Value Reference Range Interpretation Comments Alk Phos (test code = 91 U/L 40-129 Testin g Performed at [facility] [address]) Lab Hl7 Developer [facility], [address], [place] [address] [facility] CenterAlkaline [id number] 16:32:31 Test Item Value Reference Range Interpretation Comments Alk Phos (test code = 91 U/L 40-129 Testin g Performed at [place] [address]) Lab Hl7 Developer [facility], [address], [place] [address] [facility] CenterAlbumin [id number] 16:32:30 Test Item Value Reference Range Interpretation Comments Albumin Lvl (test code 3.8 See_Comment Testi ng Performed at B = 1751-7) Lab Hl7 Developer [facility], [address], [place] [address] [Automated mess age] The system which ge nerated this result tra nsmitted reference range : 3.5 - 5.2 gm/dL. The refe rence range was not used to interpret this result as normal/abnormal . [facility] CenterAlbumin [id number] 16:32:30 Test Item Value Reference Range Interpretation Comments Albumin Lvl (test code 3.8 See_Comment Testi ng Performed at [facility] = 1751-7) Lab Hl7 Developer [facility], [address], [place] [address] [Automated mess age] The system which ge nerated this result tra nsmitted reference range : 3.5 - 5.2 gm/dL. The refe rence range was not used to interpret this result as normal/abnormal . [facility] CenterAspartate Aminotransferase 2022-06-07 16:32:29 Test Item Value Reference Range Interpretation Comments AST (test code = 14 U/L See_Comment Testing Per formed at [facility] 1920-8) Lab Hl7 Developer [facility], [address], [place] [address] [Automated mess age] The system which ge nerated this result transmit lakhwinder reference range : <=40. The reference range was not used to interpr et this result as paras l/abnormal. [facility] CenterAspartate Aminotransferase 2022-06-07 16:32:29 Test Item Value Reference Range Interpretation Comments AST (test code = 14 U/L <=40 Testing Per formed at [facility] 1920-8) Lab Hl7 Developer [facility], [address], [place] [address] [facility] CenterALT2022-12-09 16:32:28 Test Item Value Reference Range Interpretation Comments ALT (test code = 6 U/L See_Comment Testing Per formed at [facility] 1742-6) Lab Hl7 Developer [facility], [address], [place] [address] [Automated mess age] The system which ge nerated this result transmit lakhwinder reference range : <=41. The reference range was not used to interpr et this result as paras l/abnormal. [facility] CenterALT2022-12-09 16:32:28 Test Item Value Reference Range Interpretation Comments ALT (test code = 6 U/L <=41 Testing Per formed at [facility] 1742-6) Lab Hl7 Developer [facility], [address], [place] [address] [facility] CenterElectrolyte [id number] 16:32:27 Test Item Value Reference Range Interpretation Comments Sodium Lvl (test code = 138 See_Comment Test ing Performed at [facility] 2951-2) Lab Hl7 Developer [facility], [address], [place] [address] [Automated mess age] The system which ge nerated this result tra nsmitted reference range : 136 - 145 mEq/L. The reference range was not u sed to interpret this result as normal/abnormal . Potassium Lvl (test 3.8 See_Comment Testing Performed at [facility] code = 2823-3) Lab Ambulator y Care [facility], [address], [place] [address] [Automated mess age] The system which ge nerated this result tra nsmitted reference range : 3.5 - 5.1 mEq/L. The reference range was not u sed to interpret this result as normal/abnormal . Chloride (test code = 103 See_Comment Testin g Performed at [facility] 0) Lab Hl7 Developer [facility], [address], [place] [address] [Automated mess age] The system which ge nerated this result tra nsmitted reference range : 98 - 107 mEq/L. The refe rence range was not u sed to interpret this result as normal/abnormal . CO2 (test code = 25 See_Comment Testing Per formed at [facility] 2028-02) Lab Hl7 Developer [facility], [address], [place] [address] [Automated mess age] The system which ge nerated this result tra nsmitted reference range : 22 - 29 mEq/L. The refe rence range was not u sed to interpret this result as normal/abnormal . Anion Gap (test code = 10 See_Comment Testi ng Performed at [facility] 50474-5) Lab Hl7 Developer [facility], [address], [place] [address] [Automated mess age] The system which ge nerated this result tra nsmitted reference range : 4 - 14 mEq/L. The refe rence range was not u sed to interpret this result as normal/abnormal . [facility] Cancer PaigeElectrolyte [id number] 16:32:27 Test Item Value Reference Range Interpretation Comments Sodium Lvl (test code = 138 See_Comment Test ing Performed at [facility] 2951-2) Lab Hl7 Developer [facility], [address], [place] [address] [Automated mess age] The system which ge nerated this result tra nsmitted reference range : 136 - 145 mEq/L. The reference range was not u sed to interpret this result as normal/abnormal . Potassium Lvl (test 3.8 See_Comment Testing Performed at [facility] code = 2823-3) Lab Ambulator y Care [facility], [address], [place] [address] [Automated mess age] The system which ge nerated this result tra nsmitted reference range : 3.5 - 5.1 mEq/L. The reference range was not u sed to interpret this result as normal/abnormal . Chloride (test code = 103 See_Comment Testin g Performed at [facility] ) Lab Hl7 Developer [facility], [address], [place] [address] [Automated mess age] The system which ge nerated this result tra nsmitted reference range : 98 - 107 mEq/L. The refe rence range was not u sed to interpret this result as normal/abnormal . CO2 (test code = 25 See_Comment Testing Per formed at [facility] 2028-02) Lab [facility] Developer Bldg, [address], [place] [address] [Automated mess age] The system which ge nerated this result tra nsmitted reference range : 22 - 29 mEq/L. The refe rence range was not u sed to interpret this result as normal/abnormal . Anion Gap (test code = 10 See_Comment Testi ng Performed at [facility] 41805-1) Lab Hl7 Developer [facility], [address], [place] [address] [Automated mess age] The system which ge nerated this result tra nsmitted reference range : 4 - 14 mEq/L. The refe rence range was not u sed to interpret this result as normal/abnormal . [facility].Serum Htgajbtimy4802-31-66 16:32:26 Test Item Value Reference Range Interpretation Comments Creatinine (test code = 0.66 mg/dL 0.67-1.17 L Test ing Performed ) at [facility] Lab Hl7 Developer [facility], [address], [place], [place] [address] Lab Interpretation (test Abnormal code = 75258-1) [facility].Serum [id number] 16:32:26 Test Item Value Reference Range Interpretation Comments Creatinine (test code = 0.66 mg/dL 0.67-1.17 L Test ing Performed 2160-0) at [facility] Lab Hl7 Developer [facility], [address], [place], [place] [address] Lab Interpretation (test Abnormal code = 34849-5) [facility] CenterBUN2022-12-09 16:32:25 Test Item Value Reference Range Interpretation Comments BUN (test code = 3094-0) 5 mg/dL 6-23 L Betty ting Performed at [facility] Lab Ambulat ory [facility], [address], [place] [address] Lab Interpretation (test Abnormal code = 29673-9) [facility] CenterBUN2022-12-09 16:32:25 Test Item Value Reference Range Interpretation Comments BUN (test code = 3094-0) 5 mg/dL 6-23 L Betty ting Performed at [facility] Lab [facility] [facility], [address], [address], [place] [address] Lab Interpretation (test Abnormal code = 54568-3) [facility] [id number] 16:32:24 Test Item Value Reference Range Interpretation Comments Glucose Level (test 96 mg/dL 70-99 Effectiv e 01/24/16, the code = 2345-7) glucose refer ence intervals have been updated based o n [place] [employer] octaviano delines (Standards of [...] risk for diabetes Testin g Performed at [facility] Developer [facility], [address], [address], [place] [address] [facility] [id number] 16:32:24 Test Item Value Reference Range Interpretation Comments Glucose Level (test 96 mg/dL 70-99 Effectiv e 01/24/16, the code = 2345-7) glucose refer ence intervals have been updated based o n [place] [employer] octavianoria velazquez (Standards of M edical Care in Diabete s 2016. Diabetes Care 2 016; 39: S13-S22).Fastin g blood glucose:Normal: 70-99 mg/dLImpaired f asting glucose (increa sed risk for diabetes or pre-diabetes): 100-125 mg/dLDiabetes m ellitus: >/=126 mg/dL Ra ndom blood glucose:N ormal: 70-199 mg/dLNot e: Random glucose >100 mg /dL is associated with increased risk for diabetes Testin g Performed at [facility] Developer [facility], [address], [address], [place] [address] [facility]2022-[facility]-09 16:09:54 Test Item Value Reference Range Interpretation Comments Neutrophil % (test code 53.5 % 42.0-66.0 As p art of = 770-8) Differential performed at [facility], [address], [address], [place] [address] Lymphocyte % (test code 38.2 % 24.0-44.0 = 736-9) Monocyte % (test code = 7.0 % 2.0-7.0 5905-5) Eosinophil % (test code 0.7 % 1.0-4.0 L = 713-8) Basophil % (test code = 0.3 % 0.0-1.0 706-2) IGRE % (test code = 0.3 % 0.0-0.4 IGRE % c ount includes 50501-6) Metamyelocytes, Myelocytes, and Promyelocytes. As part of Differe ntial performed at [facility], [address], [address], [place] [address] Neutrophil Abs (test 3.56 K/uL 1.70-7.30 code = 751-8) Lymphocyte Abs (test 2.55 K/uL 1.00-4.80 code = 731-0) Monocyte Abs (test code 0.47 K/uL 0.08-0.70 = 742-7) Eosinophil Abs (test 0.05 K/uL 0.04-0.40 code = 711-2) Basophil Abs (test code 0.02 K/uL 0.00-0.10 = 704-7) IG Abs (test code = 0.02 K/uL 0.00-0.04 06587-0) Lab Interpretation Abnormal (test code = 94990-0) [facility] 16:09:54 Test Item Value Reference Range Interpretation Comments Neutrophil % (test code 53.5 % 42.0-66.0 As p art of = 770-8) Differential performed at [facility], [address], [address], [place] [address] Lymphocyte % (test code 38.2 % 24.0-44.0 = 736-9) Monocyte % (test code = 7.0 % 2.0-7.0 5905-5) Eosinophil % (test code 0.7 % 1.0-4.0 L = 713-8) Basophil % (test code = 0.3 % 0.0-1.0 706-2) IGRE % (test code = 0.3 % 0.0-0.4 IGRE % c ount includes 64783-0) Metamyelocytes, Myelocytes, and Promyelocytes. As part of Differe ntial performed at [facility], [address], [address], [place] [address] Neutrophil Abs (test 3.56 K/uL 1.70-7.30 code = 751-8) Lymphocyte Abs (test 2.55 K/uL 1.00-4.80 code = 731-0) Monocyte Abs (test code 0.47 K/uL 0.08-0.70 = 742-7) Eosinophil Abs (test 0.05 K/uL 0.04-0.40 code = 711-2) Basophil Abs (test code 0.02 K/uL 0.00-0.10 = 704-7) IG Abs (test code = 0.02 K/uL 0.00-0.04 42815-6) Lab Interpretation Abnormal (test code = 64328-3) [facility] Cancer Paige.[id number] 16:09:39 Test Item Value Reference Range Interpretation Comments WBC (test code = 6.7 K/uL 4.0-11.0 6690-2) RBC (test code = 789-8) 3.87 See_Comment L [Au tomated message] The system [employer] generated this result transmitted ref erence range: 4.50 - 6 .00 M/uL. The refer ence range was not u sed to interpret this result as normal/abnor mal. Hgb (test code = 718-7) 11.3 See_Comment L As p art of CBC or as an individual orderable testi ng performed at [facility], [address], [address], [place] [address] [Automate d message] The sy stem which generated this result transmit lakhwinder reference range : 14.0 - 18.0 gm/dL. T he reference range was not used to int erpret this result as normal/abnormal . Hct (test code = 35.1 % 40.0-54.0 L As part of CBC or as 4544-3) an individual orderable testi ng performed at [facility], [address], [address], [place] [address] MCV (test code = 787-2) 91 fL 82-98 MCH (test code = 785-6) 29.2 pg 27.0-31.0 MCHC (test code = 32.2 See_Comment [Automate d message] 786-4) The system [employer] generated this result transmitted ref erence range: 31.0 - 3 6.0 gm/dL. The refe rence range was not u sed to interpret this result as normal/abnor mal. RDW-SD (test code = 52.4 fL 35.1-46.3 H 50120-0) RDW-CV (test code = 15.8 % 12.0-15.5 H 788-0) Platelet count (test 304 K/uL 140-440 As part of CBC or as code = 777-3) an individual orderable testi ng performed at [facility], [address], [place] [address] MPV (test code = 9.7 fL 4.0-10.4 23042-1) INRBC (test code = 0.0 % See_Comment The INRBC (instrument 49273-3) NRBC) value ref lects the enumeration of nucleated red b lood cells contained in a 200uL sampleof whole blood analyzed by the instrument. Thi s value maydiffer from the NRBC value repo rted in a manual differential,wh ich is based on a 100 cell differential. A s part of CBC testing performed at [facility] [address], [place] [address] [Automated mess age] The system [employer] generated this result transmitted ref erence range: <=0.0. T he reference range was not used to int erpret this result as normal/abnormal . Lab Interpretation Abnormal (test code = 40186-7) [facility] Cancer Paige.[id number] 16:09:39 Test Item Value Reference Range Interpretation Comments WBC (test code = 6.7 K/uL 4.0-11.0 6690-2) RBC (test code = 789-8) 3.87 See_Comment L [Au tomated message] The system [employer] generated this result transmitted ref erence range: 4.50 - 6 .00 M/uL. The refer ence range was not u sed to interpret this result as normal/abnor mal. Hgb (test code = 718-7) 11.3 See_Comment L As p art of CBC or as an individual orderable testi ng performed at [facility], [address], [address], [place] [address] [Automate d message] The sy stem which generated this result transmit lakhwinder reference range : 14.0 - 18.0 gm/dL. T he reference range was not used to int erpret this result as normal/abnormal . Hct (test code = 35.1 % 40.0-54.0 L As part of CBC or as 4544-3) an individual orderable testi ng performed at [facility], [address], [address], [place] [address] MCV (test code = 787-2) 91 fL 82-98 MCH (test code = 785-6) 29.2 pg 27.0-31.0 MCHC (test code = 32.2 See_Comment [Automate d message] 786-4) The system [employer] generated this result transmitted ref erence range: 31.0 - 3 6.0 gm/dL. The refe rence range was not u sed to interpret this result as normal/abnor mal. RDW-SD (test code = 52.4 fL 35.1-46.3 H 79589-0) RDW-CV (test code = 15.8 % 12.0-15.5 H 788-0) Platelet count (test 304 K/uL 140-440 As part of CBC or as code = 777-3) an individual orderable testi ng performed at [facility], [address], [address], [facility] [place] [address] MPV (test code = 9.7 fL 4.0-10.4 24012-9) INRBC (test code = 0.0 % <=0.0 The INRBC (instrument 54860-1) NRBC) value ref lects the enumeration of nucleated red b lood cells contained in a 200uL sampleof whole blood analyzed by the instrument. Thi s value maydiffer from the NRBC value repo rted in a manual differential,wh ich is based on a 100 cell differential. A s part of CBC testing performed at [facility] [address], [address], [facility] [[email or web address] [address] Lab Interpretation Abnormal (test code = 76944-1) [facility] [id number] 23:29:29 Test Item Value Reference Range Interpretation Comments Final Report (test No Fungi isolated. code = 8488) Path Review - Culture yield may be Fungus (test code = affected by sample 8479) quality, prior treatment, and transportation conditions.The results have been reviewed and electronically signed by Pathologist:SRUTHI ZABALA MD #[id number] [facility] Zkffdoo1047-24-54 23:29:29 Test Item Value Reference Range Interpretation Comments Final Report (test No Fungi isolated. code = 8488) Path Review - Culture yield may be Fungus (test code = affected by sample 8479) quality, prior treatment, and transportation conditions.The results have been reviewed and electronically signed by Pathologist:SRUTHI ZABALA MD #[id number] [facility] Blood Ixqigci8445-55-66 23:29:29 Test Item Value Reference Range Interpretation Comments Final Report (test No Fungi isolated. code = 8488) Path Review - Culture yield may be Fungus (test code = affected by sample 8479) quality, prior treatment, and transportation conditions.The results have been reviewed and electronically signed by Pathologist:SRUTHI ZABALA MD #[id number] [facility] Blood Rvonntm9722-24-78 23:29:29 Test Item Value Reference Range Interpretation Comments Final Report (test No Fungi isolated. code = 8488) Path Review - Culture yield may be Fungus (test code = affected by sample 8479) quality, prior treatment, and transportation conditions.The results have been reviewed and electronically signed by Pathologist:SRUTHI ZABALA MD #[id number] [facility] Blood Zrebkzh5898-94-09 23:29:29 Test Item Value Reference Range Interpretation Comments Final Report (test No Fungi isolated. code = 8488) Path Review - Culture yield may be Fungus (test code = affected by sample 8479) quality, prior treatment, and transportation conditions.The results have been reviewed and electronically signed by Pathologist:SRUTHI ZABALA MD #[id number] [facility] Blood Tfarexm7337-84-68 23:29:29 Test Item Value Reference Range Interpretation Comments Final Report (test No Fungi isolated. code = 8488) Path Review - Culture yield may be Fungus (test code = affected by sample 8479) quality, prior treatment, and transportation conditions.The results have been reviewed and electronically signed by Pathologist:SRUTHI ZABALA MD #[id number] [facility] Blood Bzwonzv5230-04-93 23:29:29 Test Item Value Reference Range Interpretation Comments Final Report (test No Fungi isolated. code = 8488) Path Review - Culture yield may be Fungus (test code = affected by sample 8479) quality, prior treatment, and transportation conditions.The results have been reviewed and electronically signed by Pathologist:SRUTHI ZABALA MD #[id number] [facility]2022-04-30 01:20:36 Test Item Value Reference Range Interpretation Comments Final Report (test No growth code = 8488) Path Review - Culture yield may be Bottle/Isolator affected by sample (test code = 8499) quality, prior treatment, and transportation conditions....The results have been reviewed and electronically signed by Pathologist:Fredy Mercado MD, PhD #[id number] [facility]2022-04-30 01:20:36 Test Item Value Reference Range Interpretation Comments Final Report (test No growth code = 8488) Path Review - Culture yield may be Bottle/Isolator affected by sample (test code = 8499) quality, prior treatment, and transportation conditions....The results have been reviewed and electronically signed by Pathologist:Fredy Mercado MD, PhD #[id number] [facility]2022-04-30 01:20:36 Test Item Value Reference Range Interpretation Comments Final Report (test No growth code = 8488) Path Review - Culture yield may be Bottle/Isolator affected by sample (test code = 8499) quality, prior treatment, and transportation conditions....The results have been reviewed and electronically signed by Pathologist:Fredy Mercado MD, PhD #[id number] [facility]2022-04-30 01:20:36 Test Item Value Reference Range Interpretation Comments Final Report (test No growth code = 8488) Path Review - Culture yield may be Bottle/Isolator affected by sample (test code = 8499) quality, prior treatment, and transportation conditions....The results have been reviewed and electronically signed by Pathologist:Fredy Mercado MD, PhD #[id number] [facility]2022-04-30 01:20:36 Test Item Value Reference Range Interpretation Comments Final Report (test No growth code = 8488) Path Review - Culture yield may be Bottle/Isolator affected by sample (test code = 8499) quality, prior treatment, and transportation conditions....The results have been reviewed and electronically signed by Pathologist:Fredy Mercado MD, PhD #[id number] [facility] Jyixsqp4665-58-37 01:20:36 Test Item Value Reference Range Interpretation Comments Final Report (test No growth code = 8488) Path Review - Culture yield may be Bottle/Isolator affected by sample (test code = 8499) quality, prior treatment, and transportation conditions....The results have been reviewed and electronically signed by Pathologist:Fredy Mercado MD, PhD #[id number] [facility] Vhdkaer6311-53-82 01:20:36 Test Item Value Reference Range Interpretation Comments Final Report (test No growth code = 8488) Path Review - Culture yield may be Bottle/Isolator affected by sample (test code = 8499) quality, prior treatment, and transportation conditions....The results have been reviewed and electronically signed by Pathologist:Fredy Mercado MD, PhD #[id number] [facility]2022-[facility]-27 17:07:36 Test Item Value Reference Range Interpretation Comments Total Cells (test code 100 = 00293-9) Neutrophil % (test code 63.0 % 42.0-66.0 The Neutrophil count = 41001-3) includes Bands. Lymphocyte % (test code 20.0 % 24.0-44.0 L = 737-7) Monocyte % (test code = 9.0 % 2.0-7.0 H 744-3) Eosinophil % (test code 2.0 % 1.0-4.0 = 714-6) Metamyelocyte % (test 6.0 % See_Comment H The Me tamyelocyte code = 740-1) count includes Myelocytes. [Automated mess age] The system [employer] generated this result transmitted ref erence range: <=0.0. T he reference range was not used to int erpret this result as normal/abnormal . NRBC (test code = 1.0 See_Comment H [Automate d message] 13625-0) The system [employer] generated this result transmitted ref erence range: [...] PLT Morph (test code = Normal Normal 64112-9) Anisocytosis (test code Present Not Present A = 702-1) Poik (test code = Present Not Present A 779-9) Polychromasia (test Present Not Present A code = 15805-8) Ovalocyte (test code = Present Not Present A 774-0) Tear Drop (test code = Present Not Present A 7791-7) Lab Interpretation Abnormal (test code = 38751-1) [facility] Cancer BvzmhjRcsecueahzmv7784-91-07 17:07:36 Test Item Value Reference Range Interpretation Comments Total Cells (test code 100 = 06970-8) Neutrophil % (test code 63.0 % 42.0-66.0 The Neutrophil count = 86816-0) includes Bands. Lymphocyte % (test code 20.0 % 24.0-44.0 L = 737-7) Monocyte % (test code = 9.0 % 2.0-7.0 H 744-3) Eosinophil % (test code 2.0 % 1.0-4.0 = 714-6) Metamyelocyte % (test 6.0 % See_Comment H The Me tamyelocyte code = 740-1) count includes Myelocytes. [Automated mess age] The system [employer] generated this result transmitted ref erence range: <=0.0. T he reference range was not used to int erpret this result as normal/abnormal . NRBC (test code = 1.0 See_Comment H [Automate d message] 42297-0) The system [employer] generated this result transmitted ref erence range: [...] PLT Morph (test code = Normal Normal 12874-9) Anisocytosis (test code Present Not Present A = 702-1) Poik (test code = Present Not Present A 779-9) Polychromasia (test Present Not Present A code = 85163-7) Ovalocyte (test code = Present Not Present A 774-0) Tear Drop (test code = Present Not Present A 7791-7) Lab Interpretation Abnormal (test code = 34590-2) [facility] Cancer EkpocdBgeotkqgfnkz6383-11-91 17:07:36 Test Item Value Reference Range Interpretation Comments Total Cells (test code 100 = 19900-6) Neutrophil % (test code 63.0 % 42.0-66.0 The Neutrophil count = 63614-5) includes Bands. Lymphocyte % (test code 20.0 % 24.0-44.0 L = 737-7) Monocyte % (test code = 9.0 % 2.0-7.0 H 744-3) Eosinophil % (test code 2.0 % 1.0-4.0 = 714-6) Metamyelocyte % (test 6.0 % See_Comment H The Me tamyelocyte code = 740-1) count includes Myelocytes. [Automated mess age] The system [employer] generated this result transmitted ref erence range: <=0.0. T he reference range was not used to int erpret this result as normal/abnormal . NRBC (test code = 1.0 See_Comment H [Automate d message] 72074-8) The system [employer] generated this result transmitted ref erence range: [...] PLT Morph (test code = Normal Normal 24656-1) Anisocytosis (test code Present Not Present A = 702-1) Poik (test code = Present Not Present A 779-9) Polychromasia (test Present Not Present A code = 69387-7) Ovalocyte (test code = Present Not Present A 774-0) Tear Drop (test code = Present Not Present A 7791-7) Lab Interpretation Abnormal (test code = 44636-5) [facility] Cancer Paige.[id number] 17:07:32 Test Item Value Reference Range Interpretation Comments WBC (test code = 11.5 K/uL 4.0-11.0 H 6690-2) RBC (test code = 789-8) 4.25 See_Comment L [Au tomated message] The system [employer] generated this result transmitted ref erence range: 4.50 - 6 .00 M/uL. The refer ence range was not u sed to interpret this result as normal/abnor mal. Hgb (test code = 718-7) 12.1 See_Comment L [Au tomated message] The system [employer] generated this result transmitted ref erence range: [...] See_Comment [Automate d message] 786-4) The system [employer] generated this result transmitted ref erence range: 31.0 - 3 6.0 gm/dL. The refe rence range was not u sed to interpret this result as normal/abnor mal. RDW-SD (test code = 57.5 fL 35.1-46.3 H 15425-1) RDW-CV (test code = 17.4 % 12.0-15.5 H 788-0) Platelet count (test 313 K/uL 140-440 code = 777-3) MPV (test code = 8.8 fL 4.0-10.4 72387-5) INRBC (test code = 0.2 % See_Comment H The INRBC (instrument 10056-5) NRBC) value ref lects the enumeration of nucleated red b lood cells contained in a 200uL sampleof whole blood analyzed by the instrument. Thi s value maydiffer from the NRBC value reported in a m anual differential,wh ich is based on a 100 cell differential. [Automated mess age] The system [employer] generated this result transmitted ref erence range: <=0.0. T he reference range was not used to int erpret this result as normal/abnormal . Lab Interpretation Abnormal (test code = 91506-1) [facility] Cancer Paige.[id number] 17:07:32 Test Item Value Reference Range Interpretation Comments WBC (test code = 11.5 K/uL 4.0-11.0 H 6690-2) RBC (test code = 789-8) 4.25 See_Comment L [Au tomated message] The system [employer] generated this result transmitted ref erence range: 4.50 - 6 .00 M/uL. The refer ence range was not u sed to interpret this result as normal/abnor mal. Hgb (test code = 718-7) 12.1 See_Comment L [Au tomated message] The system [employer] generated this result transmitted ref erence range: [...] See_Comment [Automate d message] 786-4) The system [employer] generated this result transmitted ref erence range: 31.0 - 3 6.0 gm/dL. The refe rence range was not u sed to interpret this result as normal/abnor mal. RDW-SD (test code = 57.5 fL 35.1-46.3 H 95906-0) RDW-CV (test code = 17.4 % 12.0-15.5 H 788-0) Platelet count (test 313 K/uL 140-440 code = 777-3) MPV (test code = 8.8 fL 4.0-10.4 78806-1) INRBC (test code = 0.2 % See_Comment H The INRBC (instrument 71883-7) NRBC) value ref lects the enumeration of nucleated red b lood cells contained in a 200uL sampleof whole blood analyzed by the instrument. Thi s value maydiffer from the NRBC value reported in a m anual differential,wh ich is based on a 100 cell differential. [Automated mess age] The system [employer] generated this result transmitted ref erence range: <=0.0. T he reference range was not used to int erpret this result as normal/abnormal . Lab Interpretation Abnormal (test code = 96561-8) [facility] Cancer Paige.[id number] 17:07:32 Test Item Value Reference Range Interpretation Comments WBC (test code = 11.5 K/uL 4.0-11.0 H 6690-2) RBC (test code = 789-8) 4.25 See_Comment L [Au tomated message] The system [employer] generated this result transmitted ref erence range: 4.50 - 6 .00 M/uL. The refer ence range was not u sed to interpret this result as normal/abnor mal. Hgb (test code = 718-7) 12.1 See_Comment L [Au tomated message] The system [employer] generated this result transmitted ref erence range: [...] See_Comment [Automate d message] 786-4) The system [facility] generated this result transmitted ref erence range: 31.0 - 3 6.0 gm/dL. The refe rence range was not u sed to interpret this result as normal/abnor mal. RDW-SD (test code = 57.5 fL 35.1-46.3 H 09742-3) RDW-CV (test code = 17.4 % 12.0-15.5 H 788-0) Platelet count (test 313 K/uL 140-440 code = 777-3) MPV (test code = 8.8 fL 4.0-10.4 90083-0) INRBC (test code = 0.2 % See_Comment H The INRBC (instrument 07537-0) NRBC) value ref lects the enumeration of nucleated red b lood cells contained in a 200uL sampleof whole blood analyzed by the instrument. Thi s value maydiffer from the NRBC value reported in a m anual differential,wh ich is based on a 100 cell differential. [Automated mess age] The system [employer] generated this result transmitted ref erence range: <=0.0. T he reference range was not used to int erpret this result as normal/abnormal . Lab Interpretation Abnormal (test code = 28610-7) [facility] Cancer PaigeElectrolyte [id number] 11:49:22 Test Item Value Reference Range Interpretation Comments Sodium Lvl (test code = 141 See_Comment [Au tomated message] The 295-2) system which ge nerated this result tra [...] to interpret this result as normal/abnormal . [facility] Usfvn2947-45-06 11:49:22 Test Item Value Reference Range Interpretation Comments Sodium Lvl (test code = 141 See_Comment [Au tomated message] The 2950-2) system which ge nerated this result tra [...] to interpret this result as normal/abnormal . [facility] [id number] 11:49:22 Test Item Value Reference Range Interpretation [...] to interpret this result as normal/abnormal . [facility] CenterFractionated Fizqnjiaf1414-17-35 11:49:21 Test Item Value Reference Range Interpretation [...] interpret th is result as normal/abnormal . [facility] Hqupdkvsf8909-66-03 11:49:21 Test Item Value Reference Range Interpretation [...] interpret th is result as normal/abnormal . [facility] Hpniuclnk6469-17-74 11:49:21 Test Item Value Reference Range Interpretation Comments Bili Total (test <0.3 See_Comment Direct and indirect code = 1975-) bilirubin vibha l not be reported when [...] g/L. [Automated mess age] The system which [employer] nerated this result transmit lakhwinder reference range: <=1.2 mg /dL. The reference range was not used to interpret th is result as normal/abnormal . [facility] CenterGlomerular Filtration Rate 2021-10-24 11:49:20 Test Item Value Reference Range Interpretation Comments eGFR-AA (test code 107 See_Comment Normal eG FR: >= 60 = 67810-5) mL/min/1.73 m2N ote: The eGFR is calculated [...] See_Comment Normal e GFR: >= 60 = 66108-0) mL/min/1.73 m2N ote: The eGFR is calculated [...] interpret th is result as normal/abnormal . [facility] Cancer PaigeGlomerular Filtration Rate 2021-10-24 11:49:20 Test Item Value Reference Range Interpretation Comments eGFR-AA (test code 107 See_Comment Normal eG FR: >= 60 = 79573-1) mL/min/1.73 m2N ote: The eGFR is calculated [...] 5-593b Moderately to s everely decreased GFR 30-444 Severely decrea sed GFR 15-295 Kidney failure <15 [Automated message] The [employer] stem which generated this result transmitted ref erence range: >=60 mL/min/1.7 3 sq. m. The reference range was not used to interpret th is result as normal/abnormal . eGFR-JCARLOS (test code 93 See_Comment Normal e GFR: >= 60 = 51357-9) mL/min/1.73 m2N ote: The eGFR is calculated [...] interpret th is result as normal/abnormal . [facility] Cancer PaigeGlomerular Filtration Rate 2021-10-24 11:49:20 Test Item Value Reference Range Interpretation Comments eGFR-AA (test code 107 See_Comment Normal eG FR: >= 60 = 46869-0) mL/min/1.73 m2N ote: The eGFR is calculated [...] See_Comment Normal e GFR: >= 60 = 08823-9) mL/min/1.73 m2N ote: The eGFR is calculated [...] to interpret is result as normal/abnormal . [facility] Yvovuur6873-17-80 11:49:19 Test Item Value Reference Range Interpretation Comments Total Protein (test code = 2885-2) 6.3 g/dL 6.4-8.3 L Lab Interpretation (test code = Abnormal 53182-6) [facility] Tcbdysz9916-44-26 11:49:19 Test Item Value Reference Range Interpretation Comments Total Protein (test code = 2885-2) 6.3 g/dL 6.4-8.3 L Lab Interpretation (test code = Abnormal 78551-7) [facility] Jgnhotw6701-90-92 11:49:19 Test Item Value Reference Range Interpretation Comments Total Protein (test code = 2885-2) 6.3 g/dL 6.4-8.3 L Lab Interpretation (test code = Abnormal 40937-5) [facility] Raipo3255-74-76 11:49:18 Test Item Value Reference Range Interpretation Comments Magnesium (test code = 08651-5) 2.1 mg/dL 1.6-2.6 [facility] Nhbgj2833-62-68 11:49:18 Test Item Value Reference Range Interpretation Comments Magnesium (test code = 88660-7) 2.1 mg/dL 1.6-2.6 [facility] Ymcgw4806-03-17 11:49:18 Test Item Value Reference Range Interpretation Comments Magnesium (test code = 81760-4) 2.1 mg/dL 1.6-2.6 [facility] Yaiwomdxaoi4250-54-04 11:49:17 Test Item Value Reference Range Interpretation Comments Alk Phos (test code = 6768-6) 59 U/L 40-129 [facility] Ejfnatqbevr6497-76-75 11:49:17 Test Item Value Reference Range Interpretation Comments Alk Phos (test code = 6768-6) 59 U/L 40-129 [facility] Qzkftcxtbxo2352-43-58 11:49:17 Test Item Value Reference Range Interpretation Comments Alk Phos (test code = 6768-6) 59 U/L 40-129 [facility]2022-[facility]-27 11:49:16 Test Item Value Reference Range Interpretation Comments ALT (test code = 14 U/L See_Comment [Automated message] The 1741-11) system which ge nerated this result transmit lakhwinder reference range : <=41. The reference range was not used to interpr et this result as paras l/abnormal. [facility] 11:49:16 Test Item Value Reference Range Interpretation Comments ALT (test code = 14 U/L See_Comment [Automated message] The 1741-11) system which ge nerated this result transmit lakhwinder reference range : <=41. The reference range was not used to interpr et this result as paras l/abnormal. [facility] 11:49:16 Test Item Value Reference Range Interpretation Comments ALT (test code = 14 U/L See_Comment [Automated message] The 1741-11) system which ge nerated this result transmit lakhwinder reference range : <=41. The reference range was not used to interpr et this result as paras l/abnormal. [facility].Serum Ntaeithuxp9261-86-35 11:49:15 Test Item Value Reference Range Interpretation Comments Creatinine (test code = 2160-0) 0.81 mg/dL 0.67-1.17 [facility].Serum Wqkglyabrb7754-03-07 11:49:15 Test Item Value Reference Range Interpretation Comments Creatinine (test code = 2160-0) 0.81 mg/dL 0.67-1.17 [facility].Serum Ydpasxxoph0944-25-24 11:49:15 Test Item Value Reference Range Interpretation Comments Creatinine (test code = 2160-0) 0.81 mg/dL 0.67-1.17 [facility]UN[facility] 11:49:14 Test Item Value Reference Range Interpretation Comments BUN (test code = 3094-0) 15 mg/dL 12-20 [facility] 11:49:14 Test Item Value Reference Range Interpretation Comments BUN (test code = 3094-0) 15 mg/dL - [facility]UN2022-04-27 11:49:14 Test Item Value Reference Range Interpretation Comments BUN (test code = 3094-0) 15 mg/dL - [facility] CenterPhosphorus Lkrhk0213-81-89 11:49:13 Test Item Value Reference Range Interpretation Comments Phosphorus (test code = 2777-1) 3.4 mg/dL 2.5-4.5 [facility] Wrvpy6662-76-64 11:49:13 Test Item Value Reference Range Interpretation Comments Phosphorus (test code = 2777-1) 3.4 mg/dL 2.5-4.5 [facility] Sivtc1482-49-86 11:49:13 Test Item Value Reference Range Interpretation Comments Phosphorus (test code = 2777-1) 3.4 mg/dL 2.5-4.5 [facility] Loaxg4260-34-26 11:49:13 Test Item Value Reference Range Interpretation Comments Phosphorus (test code = 2777-1) 3.4 mg/dL 2.5-4.5 [facility] Kkkas7481-78-25 11:49:13 Test Item Value Reference Range Interpretation Comments Phosphorus (test code = 2777-1) 3.4 mg/dL 2.5-4.5 [facility] Wkbnq1910-95-08 11:49:13 Test Item Value Reference Range Interpretation Comments Phosphorus (test code = 2777-1) 3.4 mg/dL 2.5-4.5 [facility] Czqqo9430-69-28 11:49:13 Test Item Value Reference Range Interpretation Comments Phosphorus (test code = 2777-1) 3.4 mg/dL 2.5-4.5 [facility] Rhuvm6244-99-86 11:49:12 Test Item Value Reference Range Interpretation Comments Calcium Lvl (test code = 42348-4) 9.1 mg/dL 8.4-10.2 [facility] Nlxqu9185-87-27 11:49:12 Test Item Value Reference Range Interpretation Comments Calcium Lvl (test code = 22515-5) 9.1 mg/dL 8.4-10.2 [facility] Vvfma0010-66-66 11:49:12 Test Item Value Reference Range Interpretation Comments Calcium Lvl (test code = 98846-4) 9.1 mg/dL 8.4-10.2 [facility] CenterAlbumin Hobeb0110-98-07 11:49:11 Test Item Value Reference Range Interpretation Comments Albumin Lvl (test code 3.6 See_Comment [Aut omated message] The = 4763) system which ge nerated this result tra nsmitted reference range : 3.5 - 5.2 gm/dL. The refe rence range was not used to interpret this result as normal/abnormal . [facility] CenterAlbumin Odgdy8748-72-18 11:49:11 Test Item Value Reference Range Interpretation Comments Albumin Lvl (test code 3.6 See_Comment [Aut omated message] The = 4763) system which ge nerated this result tra nsmitted reference range : 3.5 - 5.2 gm/dL. The refe rence range was not used to interpret this result as normal/abnormal . [facility] Center[facility] Rtbhm0898-74-51 11:49:11 Test Item Value Reference Range Interpretation Comments Albumin Lvl (test code 3.6 See_Comment [Aut omated message] The = 4763) system which ge nerated this result tra nsmitted reference range : 3.5 - 5.2 gm/dL. The refe rence range was not used to interpret this result as normal/abnormal . [facility] CenterAspartate Aminotransferase 2021-10-24 11:49:10 Test Item Value Reference Range Interpretation Comments AST (test code = 14 U/L See_Comment [Automated message] The 1920-01) system which ge nerated this result transmit lakhwinder reference range : <=40. The reference range was not used to interpr et this result as paras l/abnormal. [facility] CenterAspartate Aminotransferase 2021-10-24 11:49:10 Test Item Value Reference Range Interpretation Comments AST (test code = 14 U/L See_Comment [Automated message] The 1920-01) system which ge nerated this result transmit lakhwinder reference range : <=40. The reference range was not used to interpr et this result as paras l/abnormal. [facility] CenterAspartate Aminotransferase 2021-10-24 11:49:10 Test Item Value Reference Range Interpretation Comments AST (test code = 14 U/L See_Comment [Automated message] The 1920-01) system which ge nerated this result transmit lakhwinder reference range : <=40. The reference range was not used to interpr et this result as paras l/abnormal. [facility] CenterGl[facility] Tgdgh1922-22-24 11:49:08 Test Item Value Reference Range Interpretation [...] diabetes Lab Interpretation (test Abnormal code = 14605-2) [facility] Center[facility] Slzdd5156-01-03 11:49:08 Test Item Value Reference Range Interpretation [...] diabetes Lab Interpretation (test Abnormal code = 83458-9) [facility] CenterGl[facility] Ztbri9257-52-99 11:49:08 Test Item Value Reference Range Interpretation [...] diabetes Lab Interpretation (test Abnormal code = 83337-5) [facility] Jbysysjilg8772-03-78 06:55:27 Test Item Value Reference Range Interpretation Comments IgG Total-Hart (test 830 mg/dL 767-1590 code = 2465-3) IgG1-Hart (test code = 418 mg/dL 235-597 4991-1) IgG2-Hart (test code = 157 mg/dL 171-632 L 7-9) IgG3-Hart (test code = 56.8 mg/dL 18.4-106.0 8-7) IgG4-Hart (test code = 8.8 mg/dL 2.4-121.0 Test Performed 2468-10) by:[facility] [address] [employer], [employer] [place], [place] [address]Vid Director: Petar Johnson M.D. Ph. D.; CLIA# [id number] 2 Lab Interpretation Abnormal (test code = 21155-8) [facility] Sztvttgcro2351-46-07 06:55:27 Test Item Value Reference Range Interpretation Comments IgG Total-Hart (test 830 mg/dL 767-1590 code = 2465-3) IgG1-Ahrt (test code = 418 mg/dL 924-125 6540-1) IgG2-Hart (test code = 157 mg/dL 171-632 L 7-9) IgG3-Hart (test code = 56.8 mg/dL 18.4-106.0 8-7) IgG4-Hart (test code = 8.8 mg/dL 2.4-121.0 Test Performed 2468-10) by:[facility] [address] [employer], [employer] [place], [place] [address]Skh Director: Petar Johnson M.D. Ph. D.; CLIA# [id number] 2 Lab Interpretation Abnormal (test code = 61293-7) [facility] Zyyooykzws9201-78-34 06:55:27 Test Item Value Reference Range Interpretation Comments IgG Total-Hart (test 830 mg/dL 767-1590 code = 2465-3) IgG1-Hart (test code = 418 mg/dL 207-727 6982-1) IgG2-Hart (test code = 157 mg/dL 171-632 L 2467-9) IgG3-Hart (test code = 56.8 mg/dL 18.4-106.0 2468-7) IgG4-Hart (test code = 8.8 mg/dL 2.4-121.0 Test Performed 2468-5) by:[facility] [employer] [id number] [email or web address], [place], [place] [address]Kdr Director: Petar Johnson M.D. Ph. D.; CLIA# [id number] 2 Lab Interpretation Abnormal (test code = 71169-1) [facility] Anjpbouelw0742-69-55 06:55:27 Test Item Value Reference Range Interpretation Comments IgG Total-Hart (test 830 mg/dL 767-1590 code = 2465-3) IgG1-Hart (test code = 418 mg/dL 647-197 3582-1) IgG2-Hart (test code = 157 mg/dL 171-632 L 2467-9) IgG3-Hart (test code = 56.8 mg/dL 18.4-106.0 2468-7) IgG4-Hart (test code = 8.8 mg/dL 2.4-121.0 Test Performed 5) by:[facility] [employer] [id number] [email or web address], [place], [place] [address]Pqd Director: Petar Johnson M.D. Ph. D.; CLIA# [id number] 2 Lab Interpretation Abnormal (test code = 90467-9) [facility] Ixelubkspn7396-66-49 06:55:27 Test Item Value Reference Range Interpretation Comments IgG Total-Hart (test 830 mg/dL 767-1590 code = 2465-3) IgG1-Hart (test code = 418 mg/dL 774-100 8367-1) IgG2-Hart (test code = 157 mg/dL 171-632 L 2467-9) IgG3-Hart (test code = 56.8 mg/dL 18.4-106.0 2468-7) IgG4-Hart (test code = 8.8 mg/dL 2.4-121.0 Test Performed 2468-10) by:[facility] [employer] [id number] [email or web address], [place], [place] [address]Fwi Director: Petar Johnson M.D. Ph. D.; CLIA# [id number] 2 Lab Interpretation Abnormal (test code = 98299-6) [facility] Pggdebbuof1742-04-52 06:55:27 Test Item Value Reference Range Interpretation Comments IgG Total-Hart (test 830 mg/dL 767-1590 code = 2465-3) IgG1-Hart (test code = 418 mg/dL 403-442 4111-1) IgG2-Hart (test code = 157 mg/dL 171-632 L 2467-9) IgG3-Hart (test code = 56.8 mg/dL 18.4-106.0 8-7) IgG4-Hart (test code = 8.8 mg/dL 2.4-121.0 Test Performed 2468-10) by:[facility] [employer] [id number] [email or web address], [place], [place] [address]Rgu Director: Petar Johnson M.D. Ph. D.; CLIA# [id number] 2 Lab Interpretation Abnormal (test code = 09946-4) [facility] Osqhrqgvnn7710-74-95 06:55:27 Test Item Value Reference Range Interpretation Comments IgG Total-Hart (test 830 mg/dL 767-1590 code = 2465-3) IgG1-Hart (test code = 418 mg/dL 807-407 3518-1) IgG2-Hart (test code = 157 mg/dL 171-632 L 2467-9) IgG3-Hart (test code = 56.8 mg/dL 18.4-106.0 2468-7) IgG4-Hart (test code = 8.8 mg/dL 2.4-121.0 Test Performed 2468-10) by:[facility] [address] [place], [place] [address]Yiq Director: Petar Johnson M.D. Ph. D.; CLIA# [id number] 2 Lab Interpretation Abnormal (test code = 45703-2) [place] 71783022-04-25 19:29:59 Test Item Value Reference Range Interpretation Comments IgG (test code = 6001) 751 mg/dL 610-1616 [place] 71783022-04-25 19:29:59 Test Item Value Reference Range Interpretation Comments IgG (test code = 6001) 751 mg/dL 610-1616 [facility] 19:29:59 Test Item Value Reference Range Interpretation Comments IgG (test code = 6001) 751 mg/dL 610-1616 [place] 71783022-04-25 19:29:59 Test Item Value Reference Range Interpretation Comments IgG (test code = 6001) 751 mg/dL 610-1616 [place] 71783022-04-25 19:29:59 Test Item Value Reference Range Interpretation Comments IgG (test code = 6001) 751 mg/dL 610-1616 [place] 71783022-04-25 19:29:59 Test Item Value Reference Range Interpretation Comments IgG (test code = 6001) 751 mg/dL 610-1616 [place] 71783022-04-25 19:29:59 Test Item Value Reference Range Interpretation Comments IgG (test code = 6001) 751 mg/dL 610-1616 [facility]:29[facility]58 Test Item Value Reference Range Interpretation Comments IgA (test code = 5992) 191 mg/dL 85-499 [place] 30477022-04-25 19:29:58 Test Item Value Reference Range Interpretation Comments IgA (test code = 5992) 191 mg/dL 85-499 [place] 30477022-04-25 19:29:58 Test Item Value Reference Range Interpretation Comments IgA (test code = 5992) 191 mg/dL 85-499 [place] 30477022-04-25 19:29:58 Test Item Value Reference Range Interpretation Comments IgA (test code = 5992) 191 mg/dL 85-499 [facility] 19:29:58 Test Item Value Reference Range Interpretation Comments IgA (test code = 5992) 191 mg/dL 85-499 [facility] 19:29:58 Test Item Value Reference Range Interpretation Comments IgA (test code = 5992) 191 mg/dL 85-499 [facility] 19:29:58 Test Item Value Reference Range Interpretation Comments IgA (test code = 5992) 191 mg/dL 85-499 [facility] Bi[facility] Interpretation 2021-10-22 15:30:07 Test Item Value Reference Range Interpretation Comments Submitted Clinical History m0rcuYLvHBGjz9mzNCA (test code = 50365) mbGFuZzEwMzNcZnRuYm pcdWMxIHtccnRmMVxzc 9XvJ3FaAmKfISmdnoAy XGRlZmxhbmcxMDMzXGZ 0bmJqXHVjMVxkZWZmMH udYz6dcEKeaBpiKfLrY PYbf9pzbbBYljpibVk8 n0fkHXRpEtP5cDAkFSz zO3lhvnSadWHhLLSgSF j3tF55YYIttG3svINwI SnbnlAlYzP1WRaxVQMl GpP1ZLKgyJDnXYGeH3z yZWQwXGdyZWVuMFxibH QoNMQ2yMtzv4F9mSLut GVldHtcZjBcZnMyMiBO r7HtCXt8hErxC8QoRHM sAoZ1uNWrJODhHVfvAP QbRYSgkbN1wY91EMqlm uC5dTWlu2Afm68nw741 kK3lrJMvGTF8FVEiJAE giCUuLESiTAK4UBWitF ExV6ofRVVrBK2dabfxU BjkZPfpLNDqcBY7NEKp lSPsQ8XiKCGeDHbrILC kzqf9RsJlAy5neYStvH kaLNqac9znu8nfyHMuX qm3ALWxEyEfLgybPHlo n7Oro5ukJEVppb3gVNE 6lYRhwMzgg8L5rVDkZJ AekIKbpxPyMUBvKlW6F YxuCQ1xwd93CBBlATA6 hd7abTVbnOhvojZufHJ iDNlvY4YzCFHct627ZW ZoH6RmXXSvj0X1ytSnJ wUpMHLbaDK8vqU6TQLl TEi9lNXkutX8wfBafFM pJ9jfjT2mJZXrVU8tyk dkc2ovPTzuKLmfSDJag ME6zoL0BQJykDMcF4Yq vM2mWHZqDGkzZLDlzfi 5PxUeHj5snEUraLdzAV xzYmtwYWdlXHBnbmNvb nRccGduZGVjXHBsYWlu XHBsYWluXGYwXGZzMjR abQfijFsxmU8pQzFtDz SmHSslJB7eAFRmD6nnj GBmPVHaTDZdJ8yjGvEg nF2nlUreDRutnsPiWUK 6NHwke2smyhuqiXEgie P2kXTvNcPkKzZ6NTlcx GFpblxmMVxmczIyXGxh zjdlSXUyOXwdN2rwLiL bPDDknGmlMSpdg0HsWV YxXGZzMjJccGFyfX0= Diagnosis (test code = 34) t4sjaCVdJYNllND2MuP oJCNdz5che8ZcmTRccC HuBHqwlEZwzwUyiw64a BP9tR71JY7kYRLxKaQ7 AVNpdfK5Awc1SQUhNPM hnHXhK226d5ffr2yldd ZqdMW5uZqeWTXkpwfyD mM9QSwiFKWkqeulAKn8 HKcsVKPprGE6OYPscQN jV5UxWLGtJF9dnnd9KV Z9RMcoDGHhZcY6HLHtt DHyQOMitMvrWRiau793 AUL7SeZuBYEzheXcyEq gmJ1kPlVkATBOOiCaRS JdpCfjG9WeOXBksN9gf 0q2QHlzjjNhEIs1DNCs E4iohtntevPnl3McsR7 pm2kmE6StiUzvS62hx2 tewNBxfFL9tJPrQQAnx lVvPRDxWKFymTpsO1w6 aXNccGFyfQ== Gross Description (test v2lwiLSyQVBrbRONSNm code = 1072500744) wMVxhbnNpXHNwbHRwZ3 IhgqhrPMqlFC9fPP6kc FaomPTeuOXdNR2MNCWc ZmYxXHBhcGVydzEyMjQ bTIGnkCSwwMC3VYGgBT 1hcmdsMTgwMFxtYXJnc lY7GUUdzNQuZ7AeNMIb QY2ktiemYNZ7LZqkxT5 vmnHDXrfxKq8wlQMiyK tcZjFcZmNoYXJzZXQwX WFtlKrbFNFgBVz7tM3R IfswY40sb6I6Uxc6JCE gCTAxR7KrLI0gHLJxuN JpC17PCrvuPND7VGWUY zsnWOWnVM4Co5ogIPYy yVLiRSZ6TBvihMWzASD eEGGcIAu5ZZGtKNvlhT XpCA6liIqhXxansVebp 2VjdCBcXGlkIDUxMDAy KMebDMDdMT6YLsMkNNT 1AEDvJJOpRSa1SAm3TI 5YUqPjEDVhEUG5QWW9T XLcRSk3NWrgOS0PCUDk ZzPmKLP7GESyJJMgIFD uNEt5CGErZOzaYMMchQ FsIFxcZnMgMTAgXFxmY rUsXJQjIQusppX4OCSf YWluXGJcZnMyMCBBOlx dVJLaFUxyuBattV0vLW UyD74pc0MPf6CrND5NR Ip3msVyunmoaY1yXCTb jvLsTXhgqQAdM1vwUrr bPzVeGkBwMDIFc59jmT DfuFJqVCBhn5HyBYu3v iQfG30aJ3RxDAzaGEIj hjXaCDZqqGrxT4m3pDC 0JSVcHOTiQHQtS44wTG Dnqp9fea28xqWmwnFzl NEhyMSgClNqu2V8TNZe a4X7GIOaOXPggUAgomy aUF69HJEiWPNqVE9zyL VkIHdpdGggcHJvYmFib IXaxLthjsJjrQU4EQKx JTljXGAdkIrnOHg3XZY 6Yt8hgBSzOYYwkiUGSV 2aINnctd42HOM5c4jpv WVsZHtcKlxmbGRpbnN0 IEhZUEVSTElOSyBuYW1 lPUxJTktCRUdJTnwyMT StLgijoOURXYS4YSwhr YwfpFw6x1xpzDVea8d2 JLkhOQI6kQlWk3shfVD pFWomRnewiKOqtnJ0RN vMPBZKGRfHBnUcGT0fS WpIRipJJfX5NbCfAOO2 BMyKI3GDcQK7Ubp7UFi 8fXtcZmxkcnNsdCBcJz HKbO0bbUwwxF1ekQPxS 2hcZnMyMCANClxlcGlj VtYkdYDgVrMqieE0UXL rbASrBKQ2UV8tYFMayv zaYIYdSQFoUKU8PSnjv C67aABpOWWaCMHrmLNe fVxwbGFpbiANClxzbC0 sHyTer4kxpBr8DIXXEm tqnYPheuvtpjW0LYBfr 2tapCrvj3QkmVNvEG8h rEsdzX2uQnRnHyFRPo5 = Disclaimer (test code = z5bhoWCsIGGmeQDzRdR 9844) bYLOzFWGxq9lsQRAccE FuZzEwMzNcZnRuYmpcd VLmHLJsIbQrj1dvz779 sMDmy0svBEQeGsC8hCY bTRDmvRAcZ208MLHfIV btb1qtj3PlFJQuyHCjy 8Q6BXKGyzqtvIe6jStv A09sb4J8GockL8hkJBG oQPQtH9TsNS9lPHCmIq p2WUO6UAS4RYAoNZSlG 8QpCP5hTFQtxXFuCIr6 u8fjkRrjSLVpWMN3n0d vQHssvlDaZS2vsa9lgT z8i3aptxXpLKJzCPZya WIYETXsC2CppGhaLd7r vCh5cXipBdjbKJC2Kcy 5KF3jrm23epl0xRozCP AbpzyaCqW8BZhtQILdl rzjDZp6FDfmAZMsdZO6 PIOpiISbZ0FdGKHhZO7 ssil6ALF5HGniTJGeFk X0RHDttFGaYKSwsUslB Fesf139SCW4ZaJdQW7o N1Xfb9I8hG1xbOJhQCT hcSExNmEqOATghf5ncQ EcMQvqz2YxWZQ7kkH2t QTrfVJhKERxRB21Ebzc h1ZsQqxtYXP7RSSgirD gc3Pca4hyDfYsvuZoS5 ohA6AaBOPpBWTlDZYzN eVfpuYda1Tui5BzcSAr dFe0h0vjONCuIWKipOl hf6laWLW1WYZsU4Z9wN Nwo6bfYNfhHRDvaLX0a wP2SUEnaMKnR5JurW6a SCQgTQ6mvcw3f1isMCS 3YLkpUPJmGfI9goS3FW BcaGVhZGVyeTcyMFxmb 441JTT0HtItMHKjf0Di G1FoqJuhM27hsYsaL95 sLMSfqZlitC4okTmfwY 5cZjBcZnMyNFxxbFxwb PLmirflSSgcopZ7FGpw fufsAOOsVHlfC1dhFxN tKXMxwOvnCBbtk4ZcUU UdRQKfFwuvapO2BJJLy 13oTXUcu4MlQBDhlF5o qEYkPWondhJrtXF9LGz hdmUgYmVlbiBkZXZlbG 6zAIKeTQ0rQPKlnlVeq z5vboNxTXRyHRXaO1Fe cmlzdGljcyBkZXRlcm1 kpuBuBJM2EWOYES1YOL LtOJCbg98jJUWgaMjlz D3mmJNgigVnTVZkb3Gh bW6icTOYVRYnI7xoWE4 rEOzgl9LklOInmGOndB W5LEHlb3PcOgUxrqGqp IGdhRVrD1DwpTxaR9el CUMkBNVudtLonXXyd9G tOSZhaJL6hAHbYB3AMb UAs19eOYSxVQNEerOfR ZOxxRzzsZH0uwW0zY8y LiBJZiBhcHBsaWNhYmx kFYAcz132hj2kqxA7EZ EaHBBnoeukn1UfSQDaS OSuiZ82XASdRXVhvl4f husjaYQbelJfH9Ljjhv 8dG8rFYZgTKcpPAEeNQ ZzMjJcbGFuZzEwMzNca GljaFxmMVxkYmNoXGYx OPnjH5hbHqLuAkVsQyo wYXJ9 [facility] Cancer PaigePathology Biopsy Interpretation 2021-10-22 15:30:07 Test Item Value Reference Range Interpretation Comments Submitted Clinical History [id number] (test code = 19970) mbGFuZzEwMzNcZnRuYm pcdWMxIHtccnRmMVxzc 4UiB6JxUjBzYXfrxmQq XGRlZmxhbmcxMDMzXGZ 0bmJqXHVjMVxkZWZmMH bsMa4uaUWtrNmnWjZiH XCrp8ldyyYLrptalQb0 z4koWUIwKpQ7gUEgUTu jJ2rfzmQmzVSqEVIsEH y7mP80TZUebR5fuZGhS VdeedCwNdZ9YYkmEXHf MxC7EFSmuMOwIJXkT5v yZWQwXGdyZWVuMFxibH KiGQO6tCczl3Z8cHNjs GVldHtcZjBcZnMyMiBO h9OdBQk5qJjhD2DcGEJ hHfJ3rKHfWIYmLLhlBQ DvEXGikqP8aG03WSphr qY5bUPxz9Jpb56cg090 wF8jgELeZGJ3GVWeLWU foZQhAVTjUFQ1KFEzdL VuT4ucZONxWB0ddcyoM AyjOFznVNMxqSK3OTIh bCZlO1HrNSTuEUnmXCG nptq5TnQpXx3hwJItaK dwYUbgr9idm5qqzBBjM lp1ZGHkWrMlPrdcLJvx c7Txi9uuTDVdey7iYSN 0vNQmuOxey5E0sOWwAL PicTRjeyIlMCDjJrU8Q MomYO3ukq86KKFwQJL4 sx8ozVDqjTdeyyAszXU kVJqwO9RbRIVfy354MW SeG1StUPThd3R9jpXtY uRgXSKzrTB3seR9KIGe UPt0jRXedoF3nnGzdZV qX6jpfN5vMQIiDV3qls xxu0zuVBcjGXegNGEsr VK8mkC7SJNpjCUqM9Ab wS2sFIWsWRtnIQVgcmf 2MnLeTp3fxCOwhLrmBM xzYmtwYWdlXHBnbmNvb nRccGduZGVjXHBsYWlu XHBsYWluXGYwXGZzMjR tgZaedNvubX8tRmVjMg PyHLkiND0eWCDqS0fmf YFpEQGgWUVhE8kdAdHn eW3mpQeiSTserpIhLSF 9JHaqq2apsqperZNfzc X2lWPgCrDzWiL0DXrll GFpblxmMVxmczIyXGxh eemyFIRfJRwkN9rjMaT gSIYcqSdsJBrkb0NiDJ YxXGZzMjJccGFyfX0= Diagnosis (test code = 34) m7jssHMnOSHocYV6ObG gPBTgc0mjc3GknZEdfU TwPUrgyYQtnhQxvx23l DR3mK41VS8fUKRmOcU4 MSTconI8Fyc7MIEgIHT weQXqO509i9xkm3fius GqfPV4vSpgMSQvxjkpP eR0PGjjMOPkspwmVAh4 DDrlATQssDJ3CCLkyRR vD2UnNVQmUW0kkrx2MP O9GShuRTHeYiJ2PAHlc IWtQRFxqBayTGqgs794 CFE3WqNcHIDetsYcyMw dyY2oIlEsLGRBDuOvQL IrxMhcN8WzNAEytQ7ga 8t3UEnlgyIoIXj6MBUe F7gnajrzkqKrl0PmwY5 uk1qzU9LfqJmpW77fj8 jkhUPbsJF4pXUeIIOir dYeMXJjHNBdzAcaS9w3 aXNccGFyfQ== Gross Description (test f4akkBDnIMRexBWOMRr code = [id number]) wMVxhbnNpXHNwbHRwZ3 TzjbgyBEmeUT5vRA4ll VsfcQHseSVbAW0UGYSo ZmYxXHBhcGVydzEyMjQ bMUIamOGjwKJ3KEGpBP 1hcmdsMTgwMFxtYXJnc jJ7GNIokQNpW7DqWENp LH9grtfvQRB4LFpuqF0 gycJRDrjfJj8tiOItbY tcZjFcZmNoYXJzZXQwX AKilFaxYIMoQOy5xT6V DxsqT05px9U2Vfv2YVV zEYRgT6ZbTB2fYPPlvW NhT55LKhdjQUF9ITCDE srvGYYaAH7Oy2xcEKVm wLXfYOL8OPznsCWpWPI zGWDbLAk0ZCDcIMdpfT IgSB2scNizKfdwbQvxf 2VjdCBcXGlkIDUxMDAy YJktGWNsAM5DYqKdXYR 4KENnAQPrHLs2DBl8NF 4IVsTuLZCdGXB8RYV5F PViVJx5VAeuFO8SERNt CxSaCSZ7HTAaEZWtVLH xJJy3CVTfHRlwXCFxnU FsIFxcZnMgMTAgXFxmY wAlKBLiJEmgtkE1AZUu YWluXGJcZnMyMCBBOlx nMBJeQBadsPummD4hRG ClT44xc7WRn3KaOR4PC Vu8jcBvajnidI4gBXBc aqWdYQydfPNjE8kgKau vMjEyTbLoOMRPu19biO AjwBNkJLBon0SjKQj4g gWgK17fD6BzPPcuZOFq qqEvHDZyfOlpZ0d8oVR 6CJKbPDEeQZPdL91yMN Msmq7rcm77sdXhouIzk YPeoXUzSdKqu6F2SRAd x3G1VQKsEIQhbOQkefd lRJ72CEZbZHZgUS1cjJ VkIHdpdGggcHJvYmFib NNbpJjgidIkmTZ7GAPl WFvyGNWjqUhkKOp7PHJ 0Ag5ipVGjAZYpcvCURD 1lNQdwnz49CES6n2ppj WVsZHtcKlxmbGRpbnN0 IEhZUEVSTElOSyBuYW1 lPUxJTktCRUdJTnwyMT NsSeyhsGMIQGF1CEiya KqxlQc0z5mtyKAgz5l9 RBwkGCW6xBvEy6apzMO nRDxjAoyosGBltgN8CC mIAPLIFNhUJnUoEH6kG LdCQytNYkD4RhTfYIW3 LUwXV1SEeMK1Duv2LOn 8fXtcZmxkcnNsdCBcJz UQdA2giHgxyJ0mhBJhL 2hcZnMyMCANClxlcGlj MoDllAHyDqEarcI7ZKX xqUVdSMZ4GP6eYNYffo aqTJJpTOEfRVZ3DMnhh F44tLYjOHSfSGFguZLy fVxwbGFpbiANClxzbC0 zLbCgk3czsPi5VUXJAc rdpCIcmigzxdB1SWEet 0zbePxgg0CrsWNdRT6y gMkjrR4jRaZlCqAYFi2 = Disclaimer (test code = w3sifLCwDBAqoOHxUsG 9844) vISNgQTXix7ebRBZecJ FuZzEwMzNcZnRuYmpcd EBtTKXkWtYir1lth888 eDPhj0zsZBMhTpL0mQY fGDAzhPBiF049MVZxXO mml0mbf1RrIAUsaBXiw 8B8TIAGkdoaeCx5sOnw V26yz4P1WcjdU9bpDYM tYTIzV3SuBY2mZZTvJr i2QWQ5ILF1TBDdXJXnF 6QwBW5nJDWexFPuDOg5 q8ybgFpbPEOqQKK6v3x lOBmqdpTvZQ1cad4qeI d8i4bnxgTrCYPjRWOuo TMLFXOqF9FixEvtIf7g yGe6dKglFjifTZA4Liz 5LN2kqr24pwu6rVsmQA UfxxwlXtW4BYjnXCGjr qboGLv8NQdiUTPpiEC4 CIIjtOZrZ4ZlTHAjFG8 pxgw1KWO1FUqnXVAtNt I2DSEgiJDyTGNfuIavF Amkx872KQX4ZeZoIN0o N8Rlx4B5yP1dlHBuAMA goDYoSvLsMADfro1eqS UdKGsdq6RuSXZ0ynX9w HSgdBAiGQUsZA12Wmnd v8WaNjlnATK2PMKodvC gs0Ebi6ucKnPcfqVsQ3 frP2VkXAEeEWPhCIXqF aTyglXgw2Spd4BojTEt qJh3e7asGNJvKIIcaVz tf3roRMO5AYIfF5P0eV Pcf2taYWwbQUOwgFR4b eO5EITovULwD8NyjZ1i ULCpUQ1uvxi1c9dwNKJ 5TJonPMCgKrM5bcN7MN BcaGVhZGVyeTcyMFxmb 810TAX2RjYzFQIra3Nq U6QcsDilZ45csXszX84 aFDWycTcjxE1nvIlczC 5cZjBcZnMyNFxxbFxwb UCbudvdARnzdhR6BMdt jinpZPDuQLogB6kzRhJ sUMPmjIhlZXewq8RfXV GwICCzVkbkkwA4KYSTn 05sVKGhy7NkHVLlvM7p mUTkFSkbqyRndFM7ELv hdmUgYmVlbiBkZXZlbG 0mBXPmMC2mWFPcuvRyx u8lrlYfVBGhVCCtT2Ef cmlzdGljcyBkZXRlcm1 aibLjTJO2FCBIGR3DHM GzXJEnv72kFWZtbEuua G3keXMslxOdZERvb1Ow oK8knGHZIXRuD3ovDJ5 jAVghp0YtwCKkcWSdmZ P7WTFur4QlMuKniyYga QLhpMXmE1VpkMbiU5bv EKHkRBOodbQtaQXfi3W oPGOedFJ4hQQvXI3QIr TPt55oNETsEPBLetVfF QSxxLdbxTI1laE9kQ0i LiBJZiBhcHBsaWNhYmx yTFFwu766vn5lwdL2LT AwLPEjdbwzp0SkQRHrT BVljQ34ZOYqMWFseq5t bgsomJPruuHvI3Qopra 2vZ8aSLCjQYjuLGCfHF ZzMjJcbGFuZzEwMzNca GljaFxmMVxkYmNoXGYx CGwdF6yjFvKqNbAwXrq wYXJ9 [facility] Cancer PaigePathology Biopsy Interpretation 2021-10-22 15:30:07 Test Item Value Reference Range Interpretation Comments Submitted Clinical History f7uauRJmIHAhd0gkVFK (test code = 98499) mbGFuZzEwMzNcZnRuYm pcdWMxIHtccnRmMVxzc 1AsR2DyDjXtLKwctxLu XGRlZmxhbmcxMDMzXGZ 0bmJqXHVjMVxkZWZmMH clRh3fyUAjjFpdXdYyF ETqx3uynlYNqsergNv3 k6ndVVLhSqO0lIArYBq aG8eugjAjyDVbIGLhXY i0qT71ADJmhJ3iwNKjP ZjdpwAzAbB5MBbzCIQq CiU9CTOmlVKlRZBjB5g yZWQwXGdyZWVuMFxibH OaSPY1rDzfp3Z6aIPep GVldHtcZjBcZnMyMiBO v5EmJVy0pLjiJ8BuXLM cHhG6vCGcQMZiDHdlWF DlDRVivkB9hK77GLypo pM2oXSfw3Uun59xl980 vQ0ubQApBYD4KDNkLAV ojONvUIWjUVZ0XFPmtW NcS9paDMBlUG5jrspqK VshZGdwMEKacUV4IDYr tMHhH1EeCLLtWBpkCAB lhxs0HsUvZd6deZOvnS kdXXwti0hcf3huwLEbY hw8UJNtOsZyKgpdYHac z7Ely7xqPPMbsf5sFNR 2yDGygVdpl5E0cEDeWA DxvKLdjyLjOZVvXgT9W DzaUB2pxw85EVKyYMX0 bk5dzJCzrXukpoGsiQI xPJlaY3CrTDAlm741UR LzX7DpCZKoz2S8lsEtG wUiCPMxtNR7pvQ8EWTr YOs7zBBnmbA8apSedHY uO4shxJ8gJFMzIZ3sfb jzz3ieUCeiPKftDGIcn DF5uuX8DOFskCNwZ1Ph qA3aFVRcPQjpLGJyvxk 6MqYlYf6ydLAxjUdiBV xzYmtwYWdlXHBnbmNvb nRccGduZGVjXHBsYWlu XHBsYWluXGYwXGZzMjR hgLgeaIywgX9wAiSrAu YsCAavFQ1hDGZhI9vlt FVhSNJzJGZgI2odKkKh tI2spAedGTmbhiFjJUH 5OHinx7vyblwotNCalk V3qUQmYhElIhV0IHwqi GFpblxmMVxmczIyXGxh sdqjYWAtTPxuT8lxYaG rXSLcyGeuOIszv7CqJK YxXGZzMjJccGFyfX0= Diagnosis (test code = 34) j0fagVEjXLPhmWR1EeB mCRPru8cxq9ZnrHAucT UwTLezvXTgdjHjbz08m MD8qF16FW5tECLwUkY1 EMMxlfK6Kox0VMSeZEA xpQWdR791w4uxi9llbk VorKN2vQnfADMeybzzT cS3CZzdLPHrjwsjAUc5 ZXaeVSAlbGS5PUKvdEM rH7HdVBWhMJ1qldn4QK S1OLeeMOGrZhF7RABbl TOdBGJvqMwgBTeao513 TJT5QiZzOSMbyyPslYf usM6gGdIpEOENYlWuJP YgkMchW3TdLVUzlR1qs 8f6QCayowDbIMw3WFNc V0zegoqlznFxy9ShpR6 je6yxL5ZouOxyB67va8 uzlJTssWZ2xBEkYPUuh iZpTDWiKCKvpQrzG4l7 aXNccGFyfQ== Gross Description (test o6vfjQYcBAIhqHCXTEy code = [id number]) wMVxhbnNpXHNwbHRwZ3 YbpbjiIPnxNZ2qQS8xs KrehMAalELeWQ6BEINn ZmYxXHBhcGVydzEyMjQ yFKPzjKPypRC9PODyRL 1hcmdsMTgwMFxtYXJnc iR5FPFjcJZuT7FlLGQq TT8ccuhhAUJ9NMtyyS6 gitXBPtufMt9atCYgdW tcZjFcZmNoYXJzZXQwX SCyeVsrJVCtSJy6fO5W XbvgC09rk2K1Tps6SGS dUZCeA1PaEX5oBTQxmM NwZ13MMfhzWKB9TZTIU nhtYPYeOX4Dh2ixJSNm rUHnMRJ5OSyanHSqCEB qQQHzFMq8OQAyQZdfsT IrLH6fyNzvSvpamPaek 2VjdCBcXGlkIDUxMDAy XGufPOGgRH1ARvLsPUF 0PMBgSPHqZUa2XOz3OX 3TNrAaANTiUHU1UVA2G YJbTYd1HGgnUG5PGKKr FiGuXTA2YSAbCQLsUFE wCLd7JIUcSYweYCAxhV FsIFxcZnMgMTAgXFxmY mWlWYPfSXpnztM8GMZx YWluXGJcZnMyMCBBOlx cYUZeYDzrhIylyV1nZA JlN79nw4BYb9LuJX9FV Rj1jhEhoxcetM3cGCKs tpKeUJobwIStI1ciGxc nVaOzLgNgRMQAj54lvG NjnWNaETCzt0JsDHn6o bLnV64zG7XnVUrwJYQf vcHqLYJbnZowA0x4lHJ 1GPWgIKSuUHTvJ67mRG Kltp4nsx56lzLoxgUvc YCejPFaNlAzz1Z7AXQd v2S9CHLxBDVyvFNkila xCX65IDNnZEPiCO5dcZ VkIHdpdGggcHJvYmFib GRanZqchqBopVY6MVXf CVvqGWPkbHwxJEd9SSY 8Nv5yyUTfWVRvmyZECD 8vNHadqb24SYS1o0qjx WVsZHtcKlxmbGRpbnN0 IEhZUEVSTElOSyBuYW1 lPUxJTktCRUdJTnwyMT ByFgfufTNKPPL4IYcrj FowhKx7f7rznSJxm9p1 EGbhMDF8bQgGn8gbmBA eNBrtYykjyPJkchS9CP rKSEYPBOpPBbDvWI8rX NxWKycCXfQ1TwHoACT6 QCkGN7PApWF6Vcw7FAi 8fXtcZmxkcnNsdCBcJz FSgT5muEaszJ6evMExU 2hcZnMyMCANClxlcGlj JzDkfDAtDhGcgxR0NIR evVAoOOT1ZG0eFPMsva kuMZEwTNGjKDL5TWjoc N96kGSmRIXvVEGbnLSv fVxwbGFpbiANClxzbC0 uQhOdo5lznGf8SQSJGv sogORfvvgznwX3ESOxk 0yceKhif2YxfDKsJZ6r aLkmxS4mOiBfLwRTMd3 = Disclaimer (test code = s6chaFJjPZNapNXdSfQ 9844) cQWZxSNWgn3anDWCqyE FuZzEwMzNcZnRuYmpcd EBvQAKdTmHmd4oje133 mMIna6lmGZMrEjT1tIE kLCFjjCAoI593TEAcGI cjs2peg5CpWLFdsSNxm 5N9JXAKxcttyKm8qRsm C22aq1S8ZhgaS9lgGRT uLOWxC0OvWZ2mCYKbDl j6NSM1VBA0XHWpFAUqX 6AaTQ9qFVZfvVCiRMr2 p2obcCsxFGYsXID7b9h zTZaulcYjST7sxt6bsN r5t0rzdcZqNPXwQKMvn IEPLEBqL2AgdQkjPk0n hNl9iCxfVpspFGU5Csa 5LL9dth59eye1hCykSC NgvxrcMaD0HMddMXPsz dahHJh9AEafEUPblPQ6 LVLmuXTvC2JqXKGvEU3 klvr0MBD8QVfqFWSrIa A4OZMonEVnPLPigLbeC Jlos603DYU3HxPfTH6m K0Jge6S7wZ0mfPHlZUP ipFFyIfLnJQMvxo2ngW EcAIsfo7NbJXK7unH5g UYswMCxEJCyXW62Ytak w3EyUctcBJT4PXYhnbW ef1Qys3uzYfTpasIvT2 jnO8VgQUGuEJXaOUAxG lJqusWws2Ayl8EjaLKf uPc0c1ufSNCtWMPtuEw kk8yjBNG7WMGxJ6B8kD Him2mwIMijWUTwxCT5g mO6CYNarXJlZ6VtbS4f PMIsPQ5uxfj2p2teBNO 1HGkbPWQlHtP6rmU2RD BcaGVhZGVyeTcyMFxmb 133CND0QpHpNAIqg4Ut E1HtaOrrB99vrUadH05 mCFHnmBwmoF1lfKqpjZ 5cZjBcZnMyNFxxbFxwb QDhsgjbTXzaojA4GCgz fnjiLHOkOXypI2xjGiM ySNLqtXbxXIvpx5NbGG XaHUBcGzrdtsX8OGTWk 45dXMSqt5GgBAFqxS5z xDXqTOoicjAhzFI0ZLp hdmUgYmVlbiBkZXZlbG 1fHBUlRE3uIUWvheMvb y4oxfAwTKOaJVCnG4Em cmlzdGljcyBkZXRlcm1 mrxKxXRN7OKHURM8SXZ BbRNRws06fMGEmyBxgm M9huPRrcaGmVFPgn6Ls dA9hvPTQVNAdR5vsAN8 gIKdyc4EtqTEzvDOgtN F6PLHab2FvZpCoyfNug LMfsHFrJ5UxaNrvF0yj DCDkBFXhhqXejAExy4X pGBKhaQW6wSOdAO4VKo BEb94zHFHxKPHOhrYlX OPlfLzzaIC3tnJ5jB4t LiBJZiBhcHBsaWNhYmx iTZMil250he9enyI0GX QmHAGiydqkr3DyNRSqX FIjdZ23QGCrSFItii2p mynyiJEylqRpN1Lejvc 0yS1xBEWtUYiwTLRfZS ZzMjJcbGFuZzEwMzNca GljaFxmMVxkYmNoXGYx MLbuR4dvIeQgKxXqWoi wYXJ9 [facility] Cancer PaigePathology Biopsy Interpretation 2021-10-22 15:30:07 Test Item Value Reference Range Interpretation Comments Submitted Clinical History c0bgoVLzEVUxr6ylUIG (test code = 20283) mbGFuZzEwMzNcZnRuYm pcdWMxIHtccnRmMVxzc 4MiY9JqNbTrAIoiyiIl XGRlZmxhbmcxMDMzXGZ 0bmJqXHVjMVxkZWZmMH ikVj3loIEhmKinPmNiV DIdf3veyxHBtmbpuYo8 a1qfIWUiXvB9wXGrELk uD9ldveZhjZSpNIQxXC a4uV89MLDmkY4lsQNoE AehzcFqYxF7SFxbWRLx QkS8VEUykYIrSWNeO6l yZWQwXGdyZWVuMFxibH UqOOT1lKdvq5T0dSEac GVldHtcZjBcZnMyMiBO r4PdECt6iUnfY3IaTRP hZdD8iFKmYMSuDSvhRP BrVPNcirE9gO71KGxri fC0xOMyn7Yqf86tc797 fR8dkJYkNNI1JVJbJZG gjBDwUKImTAR1VGGkyP UzA7wnLXFyGV9eucieX NvpGMzlYKMycDC3ZCQs nCTgA0ZgDTUoNZzdQTF djzc0HzVjTv1usSPfiQ cmFMkwk8jqe1ouvTWbI vi0GNCnCoXmZvibRBuz p8Hlk5cpGIAwvs1qFYE 1tODkiDblv0A0pHOvKX MmgVRyxoSmFGGgRnF4W IqrNF4wmd04BFYdLON6 sm1tpHSrqVlongIkdTA vHZhgM4FyOWBbd787MZ FtW6DeEOZfv6A2krDpU kEqXSFbvIL7syJ8CMHv QYm7zTPsmyT4qpFdpOA iE1parG9eVDGlXE5lhn wle9xqIAtyORvyEHFtw IC7wmU4QJNzyZUvX3Fs jI4zVMPwUSyxTMQupdk 5VqOxAu0pvOAkwSayMA xzYmtwYWdlXHBnbmNvb nRccGduZGVjXHBsYWlu XHBsYWluXGYwXGZzMjR mjCopfXabiO8jHuYiNm HxSEqsUM9sTUXdO8flv LOzALLuVTZqH7olBkYu eJ5ywWclVAcknlHyPYQ 1VWmdz0pqdfcwgDHakv N2mEClJmVgMmR3HXynf GFpblxmMVxmczIyXGxh plnyFNRgKUvjI1tgKcA oYXXtiQdfVGeqo1QoYX YxXGZzMjJccGFyfX0= Diagnosis (test code = 34) k4uzrKNyYBUzkVY5RgE eASGkx8hhe5LwvXUpiL WnMDzdmDMuquGray00m BA6gK24AI2fKENiQgN0 NYTcloI2Kel9WJMqQSD ahXVeV059l1chi3qnig VpuLD2cJupIRLajovsJ iH0JZehTQRzjhydAVx3 QXiiSPWnyMB3SDBusCL bS4CqAPWmLL9gkhg7XB M0ECyuYDGwJdE1DKTqn HZgYNFovIxkNWqux111 KWU8DhIhIZZqcnTbfDi ywN8tSxJaLWOLKnZfBI UzuJodT0KkJDKwlX1sj 4e2CKvilfOzLKu9BHVt D7fdsfaqrbFin1IgaF1 lj4szS6VwdTedV62cg9 eqsVTenWI1qVWtSAGoy jIaFZRaBBEhpTjvG0c1 aXNccGFyfQ== Gross Description (test e9xkqQCyRADbrQPJYIc code = [id number]) wMVxhbnNpXHNwbHRwZ3 EdjzgePCxqCB3lBP8sf CjxoLYemSOxOR7GPZKi ZmYxXHBhcGVydzEyMjQ aADPezPLijLM4AEJtNW 1hcmdsMTgwMFxtYXJnc sT5FURhjDTqA6DhDNOj IR9qtuwcHPL7FLtmsV0 eelZYWfsiRd0xqPXueS tcZjFcZmNoYXJzZXQwX EErvWhlSDHqPDg5fF5V KrrfX37wj4L2Bwh7IOW aGEFmH7MaZL0qXHWnbS CvZ97SBroqTOZ5XIRYK ixqYMXsFS1Na7fuRAVz uQSxJLG8ETqxvSRmCVW zZQEjFAs2LZHgFCtegO XzFC4jcFsfNsnvlAuin 2VjdCBcXGlkIDUxMDAy FAhbRTYiUP8KBvEiGUZ 3BYZhCFHgGYb1QDs0ZF 2LArExDLDtHEG5ITU9K KPwTRn6DYrlWO0TIDBc OlWeVBM5WFBgYVUkMWF hMEy9TEOqKQfkMIYdgJ FsIFxcZnMgMTAgXFxmY zHgIUGfKDpgteP6XYLy YWluXGJcZnMyMCBBOlx mGQTvKQlnnCfzbE1iVL VcL69lt2MEo3OsZM6WG Po7sdYcunpemX0dLXZt cySyNMopyXClZ2lePcb oUxClKvQgYPAOj42reN JjvPAmPAJhc8OpXKe0a xOzG07dR0EwYLrhYZDf eqPxMBXdrCvyC9w1nTR 3ZHJlWDQyNUFtV70uIX Osmn9tuo67xqRxgyPrz PCmkAZgRfImj9U0VKFj n2R6DEElXTRcqWBbpun rRN98TUToAKInIE9faC VkIHdpdGggcHJvYmFib NHkzWyeuqJteWD6FQVx IHpjZEFhvIofCAc7PIM 8Lq1iiIHnWNEpsmPZZJ 0gERzdri19WTX4e6bsp WVsZHtcKlxmbGRpbnN0 IEhZUEVSTElOSyBuYW1 lPUxJTktCRUdJTnwyMT UkNwwzhLXZTOK3KQlrx YebiBk5o2cmgUAkg5g2 WLgwURX1fIjDy9eevKB iTNhoOsrcyBBdzqN4QC aSIZKBWDaKTdPiQN8cG QpUAibNJcC9ShDbBFH4 UZqET9EIfVI3Zwi0WOw 8fXtcZmxkcnNsdCBcJz XGzZ3mnIhqkZ1qmSVnW 2hcZnMyMCANClxlcGlj WoLwbKVzRjTrhgO2BXZ qgXAfOQO8DR3xEOGjlr anLXJsOPMbECT5ERnti L49dJMpJAOdSXRqiZRu fVxwbGFpbiANClxzbC0 hTvSnw2ybiZi1VQNNLl kagQYvecwugjU9JJJwt 1aimHlhq9PjhANzSU0i sVtyoP2zTyZbMhOZJa7 = Disclaimer (test code = f5fqsKZxVPLcyOEjNoA 9844) yOLXzUYOfp1ynTXRywA FuZzEwMzNcZnRuYmpcd YIhKANcJbFao8ctn060 eRTmd1piXQCvKsF6gMN fUQNnnQQcW345CYIsDO adl9irl2BiTOAdgWObb 3K2ZGIOooadqOq2uHhw Z10yk6Q1XkfiT2lcRSE pYUHmL0IzYT9hPVSjZo i9QNH1FDJ2HWJrUEZwV 8TfLT3zSCGmnISyIAx5 b3fmyHpgEENmNOW5f1n lWLgpovFlZG8ivf0icQ v1u3nqscPjMLCjEJZus OYOKGRgL9MbzEwvYk9x jGj7zVlaMwudLVC6Cnr 9SS8tte33axg2rYelRY VwcnleGkN8MOfiKQVly zuzRLb9IGqeKQEuvFJ5 SDNslRFiQ3XiXJNmPZ5 pdyl7MZV4HNtcPLAlOa I1DISscPDcEMXuaJduG Ftdd968HWD0WwLfIS4a I7Qvq3S0xU9neAOkPFC jsRQpJeFkATJezr2nqD KqJPziz1HqHXO1bmV6z JXaoTXrDSPuHY16Tvnr p5YjKrswJMR2ZPMfogR nx2Dyy7ccUcAnduLfK5 yuA9VoPNQlIHYsBPRhP zXbjlPbv2Nlm6TvvKVp hXx1n9mtKJNyFPYhqUq jv0roWHN3GPWmG2R5eA Ila2pbVWnkRICknLQ6z nZ4HQJcvDMjF4XsqZ9c RLGjFN3ftqu1x8raJDX 1KMydMFMaGaZ1lzZ0ND BcaGVhZGVyeTcyMFxmb 303QKY1HlTaACZso8Bj Z6TaoRemH83rwDtsM24 vRQIjpHurfI2jjEassP 5cZjBcZnMyNFxxbFxwb EZmodswWUcdgzV8PXtu zmpwMWEnJMtpU0hqYsU oCXDcgEueZZizs2PuZT SkIHGnEugbbjH4PIFXj 44sEMWbz6BbUANzvC1s qCNxXRtknqWyhQS2VKk hdmUgYmVlbiBkZXZlbG 3cDCCcNG9jTBExdlQci m6ghhHaFNGhZCYaI9Ny cmlzdGljcyBkZXRlcm1 tshTpMFZ0NJRANE4ZFY XiMRFsg75qLGMvkQwlt G8siSAfrzRrZYEil6Av xM6mjUWBJLArK0byZL3 lXZgsl8WyvBUdpPPosJ K8BVLkg1RrDySliiSrc SAmtNLsI9AorPrdU1wg VCSlFSAbaaXqwLAqh8P kHCWrqJZ7aSBuJR3CNp PPa31wWXCfXLSWqtWqA HOvrGvjfGT5kgZ4qP0s LiBJZiBhcHBsaWNhYmx vROOly190cg2pdwN7KG NzUOIhootmz3MsXREeW EYzzR47RLCqASYiyf6q uuhouNRxkzKcE7Gytes 3uA3qXXIeQObbTXInUR ZzMjJcbGFuZzEwMzNca GljaFxmMVxkYmNoXGYx NYxoP3zrNgVgXzMkAfk wYXJ9 [facility] Cancer PaigePathology Biopsy Interpretation 2021-10-22 15:30:07 Test Item Value Reference Range Interpretation Comments Submitted Clinical History j2gydFYiKXLoo8hoPNP (test code = 01927) mbGFuZzEwMzNcZnRuYm pcdWMxIHtccnRmMVxzc 8FiF7WsVrKrIDtwprVh XGRlZmxhbmcxMDMzXGZ 0bmJqXHVjMVxkZWZmMH euRr9cpLFymVbpBgUlC ENpo3jggaFFbqmovNf1 v1ibTYOxEyO7nVYcBRv jD0gyijSmfNHlGASlDA y8fA02HCNlpQ9laCOrR VtcmsZjHmV3FBhvAIFf CvA6YOQrjPJcUQHzB7j yZWQwXGdyZWVuMFxibH BxZDQ7kHjsb6V3fMEbm GVldHtcZjBcZnMyMiBO m4JvNHf0qDexN2PwUHY dQvJ4kHCvPQFaWJqrSK QaBGFockV2cB10BRkif zT1rBSgm9Yql78zo572 dJ7igRJvJOZ3VKLdZVM vpSPkPTVkEMS9MCSuwL EpL8oxYIJoKI5nalkxK QxwPEzyGEQevZJ3GKFs hTPfH4DvUUVtQSaiKTT bwkm1HgWaLx8xhPZuoP dsETwkb2wct7fnrIRjY jx1TVFqStXfXdtgGJwf l2Bze7iaDHJnwh7hUAL 4xKLvgBubo3S2xJPaMG HshCRbayOeCLMpFvB5P MfkXI8acp93WGZqRNG2 hu9hnSMoxIzhmdQsyLV jSMjoX9CmGFDqe826DR XoV7JkDTDkt0H0nsUtP kNlUKZynZK8ddR3NIHk TYy9oPYzjmZ0bzTmdKT fJ6dkvA0hXAFeAX8ycq ucm2yeFQvoOUotJKNwx TP1nwH5QWOmqRAkU0Ys cU7gXKQyBQbrOWEqkqg 4WpIoOu0bpQScdOexHB xzYmtwYWdlXHBnbmNvb nRccGduZGVjXHBsYWlu XHBsYWluXGYwXGZzMjR ytTyrtGjrhS5xQuCxJu VuCHbjGW0dCMTxM4rzu ENeHTRyJDJfD7lyOhXi oQ3zoEwxNFbiuxYbJYG 5JQhlc3nbkuchfTWowv M8aUJfEnNfGeC5IMaan GFpblxmMVxmczIyXGxh pudlYKEmPHxyC6caChP qFEWirXegIXyow7MzVB YxXGZzMjJccGFyfX0= Diagnosis (test code = 34) i4eouXAeDKUqwXI0QwC nIMEjn6zed8OawQBvnZ OrZYplyIOwdiJhfc95o MA3nS73SX4zHBSkXkY6 ZUNterQ4Fhg1NWApNQT icLEbK722w9dtz6yasu CquWF0vEoqYIMawsujN xH3IZtsUFBzdcidCPf8 VNxnOPGdsIT1SEQbhKL oK9BcASZkJV4ftbo5UB K7XDsaEZHkCbR2QHZqd HOoJTNvzFxoSHfrs322 OHE2QxSiLBDlegJqgWw mwG0yWzItARKSLlTbLT CywYypR5EpBRYplD0cr 8m6VTshcgPeFMy6OZOu I0qousztsvSig8CoaU0 vu1rvY5KrqRpnK74kv3 gmbSSqfEH8kKIuYYWfq qJoBNEoAVMwbIzeY9y1 aXNccGFyfQ== Gross Description (test z4fqyRMcACRogDFDOBa code = [id number]) wMVxhbnNpXHNwbHRwZ3 PopmhzFIivTF4aFZ8pb KgvlKQqfRLoEZ0COFMj ZmYxXHBhcGVydzEyMjQ vKYLkwGQgfGY5JLYcHB 1hcmdsMTgwMFxtYXJnc cZ2HPIehLAtV7CaDRMw ZQ9ivztuIBM2ADpbwP8 elbEFZenmMl5ppFZzqD tcZjFcZmNoYXJzZXQwX VToaTviJESlFLq5vZ7M CyqkR46cc1G0Ydo2WQG sTQEiC7XiPZ3gEDOchR QkN85YRgncGWU5WNSQU munFHQzRN3Fi7nqOFAv sYIiPVM5WMpdhRXhAHH wOKXzAAs9ZJAuKQtfiV XuLU0pzVkvGfbmaDitc 2VjdCBcXGlkIDUxMDAy EAmrRBDqCH5AJsZyWLY 7WLDgNGUiAFm6FQi7TN 8BZiAsSAJlSSE3RYV8E HPuXNo0BZwxJN0RWNWq NpRjLFV2ACAbJWLsXXR uNGl8PIUbVUgqTQHfzJ FsIFxcZnMgMTAgXFxmY nZmQVJtTOkboyQ1PGDa YWluXGJcZnMyMCBBOlx lYUVxSIixyXlveN8yUV JeS77ut7IFy3EnWV2IB Ld3ofXtiyswwB1uPAEl yuWxJBrztFXoN6bzYrd xMtIxPbVqYLBQu47zoN FfjIPrUUHwo6KdZTz9t xWvF38jZ6EyCXrdURFz beVjQOJzfLpaG2s5pPE 6TDEuVTOeHZMcA46iBC Rcdz0mam60psFgogLbt SLpeCBuBaCuv9X6OZLh d5J2XMNxSGXrxCEvamk tES42UBWzDXGuVT6zpY VkIHdpdGggcHJvYmFib VJyfXtliiKenAV3NRVk SCreNJRcdVzsZTd0VPP 4Yy8nlQGhOHFsphJYIZ 3xFYjvaj55VUJ0u6rjy WVsZHtcKlxmbGRpbnN0 IEhZUEVSTElOSyBuYW1 lPUxJTktCRUdJTnwyMT DwEcqbuDHWCBI3CFiec OodaId5s5rnxPTae3x2 OOotQDQ0iXkJg2amoYC lRPocCrvvaTWflnV8CD kUVVYHCDaAKpNzZM8wI FvYDdlXEbY4GrNgRCQ8 XJuXW3AJaKB2Fcf6QJn 8fXtcZmxkcnNsdCBcJz EFfB4pzGgijP1ilXVhO 2hcZnMyMCANClxlcGlj VpYtkXPbHmGadxX3DVZ fqBZtSYM8TA5ePZSvlk flANKnXBVhQTV1GYzfs Z92qMUcZJIlUKTgrLIo fVxwbGFpbiANClxzbC0 aJfMli4eejCi9SBMJTk eacXAvblvcicT7QJPsv 0qxcKylr4XurSGgKN6y oAkyyH2mYhUzLsQIFn9 = Disclaimer (test code = k7tlbJQxYYSuyBFtEoY 9824) mBGJpRCIis4qjZTUfuJ FuZzEwMzNcZnRuYmpcd PQlFHWsQxPjx1kjr276 mUBbo8ykIAQeUqR4iQD pRNBmuJYxB867ZLQuXW gnh5rfu7XkTKYvxAKht 0M6LJIOpjozvRj8mQog P52mn2M4ZvhuP0vhLAG oWUCfD3JgYO3jSKLoWr p2VUG6CYI8MJKtGUScS 2BkFL4cBXYoqXLjJMc4 l7yiaCyqZGWhAYJ2d7x kFXfbnuUqOW2lga3kuH h6d2nhoiHvPOCrBMNtj KDWOLRzU6KwwZsdZh4w fLr8oYejWkztPSD2Jju 5SG6yup64urr6mRbsQU OhbmlvHlN9VKqtPYIhx dbpNVw1UKgjCXQodLR6 JKXwdJVvN6SpSSQhCT4 jtfw7EQJ5OXlgPXHiGv N7YYYelLSaMPKwhLhcQ Gqhs243EES3KpBmCO9h O7Yfd1K0aU1hzCKqLOP sfZGeOwSfXOXwcj5qlV SjZWmgp1CtLFJ7fzO9f IKghFIzGRQuWQ01Kqyq w8EdSciwVOX7KWSnzdH ll6Wjp8ovIqCckvNtI0 ucK4CrVOFkBWIrLFXpR eAedfDdb4Ytt3QqqQJe lFk5m5hsXHSjJSVjtLy vt3apNTG5QJXkV5R9qU Fgm5xdSFcaMDArrND7f nQ1PFLlhTYiI4EfrD8w FZPxWL1wkcw1f1zrEIM 6VHbmMLTsEqX3owN2KJ BcaGVhZGVyeTcyMFxmb 291HGG4DsXwAYTkg8Dh A0EpdWlqB03pmWsmL38 cSOZjcBfsoA8smXqdgH 5cZjBcZnMyNFxxbFxwb UYzrwueDFmmeeY2GZae ueokIJRuKMqeY3hcIxN hGKKkqIqrCSpcv6SrDC RrSSBbItexmuZ2KSJWn 00uXWPch2FhUUOjnL5v fSGnWLggmcTfhUY8ZAm hdmUgYmVlbiBkZXZlbG 3wMBIqTX8sBILcyrUhy p1uhoQpUHAqBSAfV5Ew cmlzdGljcyBkZXRlcm1 fbhPxSLF2KFURRI5HQV HmJZUsn08bRMAfhTwqh X4ajPJwagSsNBLdx7Xl mL7hkGCSIHNlY7bnJO2 tIIgze3HhdEVeoKUzfO H0EMIvf0ArZrZgaiIls FHwzOBrP7CbrJefU2gr TADuMBXqiiNtkFWai7B xTQWpcBF7eNWvCJ2ITg BQj55wHSVuTKZQtsBlF URwlMuijGY0vaB3tM9l LiBJZiBhcHBsaWNhYmx eUXMtv547xc2hpzX7AC ZaIJLrpfptu8UuUHJqB QXjqK95QOJeJZYgou8r hshiaEOlyqHuP5Rgsui 1tA7gSLVqADswSFEfUU ZzMjJcbGFuZzEwMzNca GljaFxmMVxkYmNoXGYx GApbU2mxCwRrGaWxWnp wYXJ9 [facility] Cancer PaigePathology Biopsy Interpretation 2021-10-22 15:30:07 Test Item Value Reference Range Interpretation Comments Submitted Clinical History v8icaFEnHPKgo3ijPEK (test code = 92786) mbGFuZzEwMzNcZnRuYm pcdWMxIHtccnRmMVxzc 2AlI4YoQmVaUGxyzvHb XGRlZmxhbmcxMDMzXGZ 0bmJqXHVjMVxkZWZmMH xnYr0boWPjqVltWiMdP KWvv5aeggJLrcllzKq3 g0knAIHoCeU9nLHfHXq kA4qangAfwXQfPOEuTB y6qS62GQBxwQ5skIMyR IzzyqEfTdQ9WLhbETDx RaV4VIVfyTRgENPhQ0h yZWQwXGdyZWVuMFxibH SmZLF3tAhkk5B6bXGvz GVldHtcZjBcZnMyMiBO m9ElUKa7hCwdW2NpGIT pGrR5vTWoLSUyKLxaMZ CgVVMpkdZ1tO26DXbne cW7eHIxs9Pkj73je168 bY8wbRBpWVF5RWSvGXG zlRCzZHXuQHX9ZJYexW NrE6frNFEpTV3wtzvxT IjyYAgbYKPjtXP3RGIm mZIbB2SqNHGhJGffRYH vcae8PfHcUj3rsJMrrA zdNGeyh5xrr4vkcFToV co0VKOeFsGnNdhuFWnp c7Jau4anCHBrzo1pXMT 2pOBjwNhwr9Y0aGHjQY AljGPtvtSwQBQvWbZ1L LntTL3bqs96SPTlCGV1 or6psKFiuIngnkWskMN rZZdrO6RuJMViq946TD XgI4NwTXYee1E1stGbB hOdCUTrbBK8vlU7PTVy WLg4dNMtdeX5caUwhBW kV8sciW1sZFWwXT2rpi mhl1rfDDlbGZklDOZnb IT9hfJ5MGHhzOXcK5Et aK9fPSJaMUlePOXovtc 4HqUsWw3boAYgvYamQS xzYmtwYWdlXHBnbmNvb nRccGduZGVjXHBsYWlu XHBsYWluXGYwXGZzMjR xwJmzjAfbqN3aVdGyFb DeGFrzVG3hPCFmO2hlq HBvSMQsUESiP9bvKbVz oI0iaJztLIidbnJuNHH 7USkqo1ghgnyocSBzgg I9cJVdLbSiOxS6YIadl GFpblxmMVxmczIyXGxh cawoKQHfGVfmR2rcNgN bDMRwnTilIPsdh7DqRB YxXGZzMjJccGFyfX0= Diagnosis (test code = 34) j3iltIWcQKMukIP9FlS tYESon7lwb7EibHQxlU GtCWwdyYWacnItpi84t TG1uF41YA7yZABwMzD5 WJQtmmW8Jty8PTMvBAW vrBYgP667h7zvs7busu JmoXD6yXhrFDYpwwcaO vE5AOxiPRDkxhtxYWg9 AXjqTPMphBE6XCUkaFE oO3IcEWQsUI7ypft7ON W4FRozZJMyRrK6QRZqr YUrZMTrtNgrRDded815 EXP8ZfYsTICzbgFklTu piO5xRhJmXTGYGrBdUT EazGdoP8OzGLMhkN4qd 0t3XRvrweBtTTb6CXDa Q4fufsmgjmDix9SnfM8 jm2vbD2UcfKrcX83mf3 skcTYvlNW7oSYhTDFob uOkXXFcPCZqoHzaN0i0 aXNccGFyfQ== Gross Description (test f0urtZYuOTWxaNOGRBn code = [id number]) wMVxhbnNpXHNwbHRwZ3 DqtmteASsjFK5sSC8vd OrkzGRzuAAkYV5DHFIl ZmYxXHBhcGVydzEyMjQ sPDBexYArmFN4MGRsID 1hcmdsMTgwMFxtYXJnc uA5RKZsvJNuR0BlAJPu QA5pkfmqQRP9LKjdyT6 iikNVErcnDr0qdVBllC tcZjFcZmNoYXJzZXQwX REhdJrmSZYdNLa4pP3X OvlqS58bt3C6Lgq4KZV hZLBbE0TuKQ3sUVSjeL OfR13UKlplPGU1SOSLL uwxQXYmXJ8Wt6haJTYk wIGaWAA3JKcupQIuOUO zCDEhQEw8SVWkQTzapB UhPT6juHpvBefnnEtkj 2VjdCBcXGlkIDUxMDAy CEtyCDIpDP2UMhKlAQG 7LESdEOVaJRa9LOl7RR 1QLvNwAUZcXRR4TIA6M VNzTYt2BObgOT8NVGAn ZdNaXMU7MDNrTFPkWDF fGJq5CBWmOJmtFNQhvK FsIFxcZnMgMTAgXFxmY cZjUWKxXFmoeuQ7CTLa YWluXGJcZnMyMCBBOlx mTBUyZRhkmLlboS3tZK ZfE85kr4MHf6XmHT2TI Ns5kkFdtqbtfN4oTDSe rbHfSYkwtLMeH1tyMhq sKyTrErJbHIEDu90fdH YdkGSgPUQei0AfTKy3m jQwB52oC9TpPNgnPLLm vbEjLECllEzhK9b4rZV 9YBOjDOIiRQZmL98zBW Vyyz3xmx68eyRlgjEud UOonVCjDcSuy0Z3NBBn i2V8BTJsPYOhvRLacyu qKZ48FZTcAISpTC0ysW VkIHdpdGggcHJvYmFib YEioOrkmjJddSF3AEDt LTjkNPCvcXdfAHj1TJV 3Yj9pxSCcHKWbsyVXLJ 9bNFbvqd89LEF5g8elu WVsZHtcKlxmbGRpbnN0 IEhZUEVSTElOSyBuYW1 lPUxJTktCRUdJTnwyMT YiEtbqrAEXQFZ6BNkrn AsubHd5n5xjoVLve5l2 XZmsSJY3xVsJd3cpoWX oBHjxSblyfCBejxP0VP yWDTINVNuPEkHmJH9dU FeUXpdYJuV9GdKzKWT5 XVuYV5YDtVS4Eiq4JWc 8fXtcZmxkcnNsdCBcJz LInN7plIcyeD0thXOfF 2hcZnMyMCANClxlcGlj MfFhuTUyAfLawuK0RFH qoZMnEOU4QA8fQWRfri vtVYAdVJBpJZY0CKwmt P89sOHiYDYkKIRjxISb fVxwbGFpbiANClxzbC0 rAaZij4exjCf1JUBIWm ahkVIjbjrxqvV8HESrv 2lgpFvyk4HfiNNmMO4m gArwwP8tLhVgKfMEFv4 = Disclaimer (test code = x3syuVQhXTUnaZNaEpP 9844) bIVLhXHTda5qsCJVjiN FuZzEwMzNcZnRuYmpcd SVjWHJmVzOmd9brc322 aYDbw9deQDBiPrF8gFM mAAFxyRJiS231HYSgJF vti2hyz3WyJKRnzVPaw 6A9RXSPpdablCv7mMuv J31ps4B9LxrcK0hhZDA zJXLdM1TbEQ3cJRCfHr y9DXR6CWZ9BQIsQURzH 0OhVF3jZSDqiYCiOYo6 x3llfJkrIKLkUTL1b0g kUErsfbXoXN4rxh3mrK t8x2eevnKlEIXsBXQsl TJASDXpW4LxwFmdKi7y xDr0bIojAknfUPX7Elx 0IA0dcd40zbf5aFvaNQ JczmmoFtO8QShwZVHom mkaBBm0ZHxlDLHeiTV0 CRSzeKPcQ8CwPBEtPH8 shek8VZS4OCgnFDItCq M6LFDmkORaARZgwXaqX Dhjv134MTZ7NaFfJS1l H0Qxw7O8pI7tvBDsMPZ sgVYpYoVyGZGpcw7fvW SrKGuxp0HnOBZ3whO0a TXuuDPmDFSuJT60Ncid s1CtIiawXNP0HGVjokV mh3Pug7prRpPdnpKwS2 awD7QeWUFsOOEqRHZbG mUyoxBmt4Qjm4EclRTh sKt2p1udODUvQMLgtBn wt0ksUFZ5WPXyY1I1sJ Jnu0qrLOkyADFvbSZ1i iI0CPEraZQgY0OehA1p PEXpAT9slop4y3xtIVO 1NOrlBEJtCuF0qqO3CJ BcaGVhZGVyeTcyMFxmb 427HJB9JxBpPKIlf4Is W4JsnOwdA77tzLkzS94 jCGLyeDzyeT6qsGkknP 5cZjBcZnMyNFxxbFxwb ZYodgekTCzluoW1VJta bipnZYHqGQsrU0xjDgO uVTDvfVqpXVraf2HqQN VrPJPaOlijqjM3SZSDb 86tWKXwx1DlNUFsaE6h lOPzPUiyefVzqMD8TMr hdmUgYmVlbiBkZXZlbG 2sNOBtVG6wGZXhjpNhx n1rseWyHJRgNVSeP2Tz cmlzdGljcyBkZXRlcm1 mjbHrXUT3XYKSCF1LOW TsPMJje36nRJFboLjvi D4xuICtnbQyOJQrp7Uf dS5yvFFGCHHrZ3ueOZ0 aZEqgv6KrvWMrhWHufT T0RCSlb2ZeSiVsegFzo FNmeAWuP3NauCevM4ui CJHtPXTgnuZwlTLtl1Z lBCEamWO5tUJqJT6MHr CKn37xTBPwEFSVtmPoT ZRihQsugQH9gfP1yA3d LiBJZiBhcHBsaWNhYmx wXNVmh832bn6xkdV4EG ZcTHDhfrzwq9IbOKYfU BItqH39UIYmIUWbsz0x smzawRVeozYbB0Ozdhn 3bZ4xCXCqAWazVWMlTF ZzMjJcbGFuZzEwMzNca GljaFxmMVxkYmNoXGYx JJbnZ3gnLyYpRcLmHjx wYXJ9 [facility] Cancer PaigePathology Biopsy Interpretation 2021-10-22 15:30:07 Test Item Value Reference Range Interpretation Comments Submitted Clinical History x8gkrPHkCQOqh6wdSOF (test code = 43017) mbGFuZzEwMzNcZnRuYm pcdWMxIHtccnRmMVxzc 9YhJ6PcCnDoXWvbjjWa XGRlZmxhbmcxMDMzXGZ 0bmJqXHVjMVxkZWZmMH wyPu8qyKCweDjpIeXjE PGdz0clqcYGuoiwxUr4 y8qqVOVoUnO7mVJzJFo fH1cwusZeaHHiWVItMI r8uC13LBDaiP6qdZUsZ IxijrDeHpW4GTsvFNYb LnA8LFQycFTgZYNkF6u yZWQwXGdyZWVuMFxibH JdICR5bMkcn1T0rQTca GVldHtcZjBcZnMyMiBO s8NkIVu7zCyfS2XfUQJ zKiU7yIVcCIGrGViwAB LeXFWrtbQ5oY07BXirh oD8rZOid8Fri25rh402 uK4ciTRdECR6XQQrKRH gmFEyNVIuAIV2WTMquR MhH7maNMBiCA4afvktD NylHZhdFERggOV5XFKr hYIaR6VoBSRrVXwqVOE cnmv3FtMuYs4bvYCauK qiQDqto8bjf4hplHRaQ ub4QJOqNnAnHdcfHRph e1Qpk3pvDLErrg5mWVT 0kXIdjDrsk5X4sARxSR DcxTWjgiUoKVVmXlR1M QalSX4jxp00PEUrECH4 ow5uiCCnjColwwHjsGL xWOiqX6NkMAZju894PP RuO4AuKQFfl9S5hqIiG cKbNTNrmWN7aeN6ZHYx MSp2uBGmymK6ltDknJR xB2zjiI8xVEWoQE3ggu iye9ygQIouGFgdKKSiv OZ0buI6SHBtvREjQ2Ea gC6uCRCcPNoeKBVaxts 6IqCePe7ctWLyxRlzLF xzYmtwYWdlXHBnbmNvb nRccGduZGVjXHBsYWlu XHBsYWluXGYwXGZzMjR tcLpcbSgrpK7fJfEpXz BiJNfkRV0vYBDcD8fth ABtOEZyNAUvT3xeRmHt lP0vkHysUZgzdjMhYWS 7ELspy6zfxpfvfKKnqe D6mTLnPaCfCvR3XIsne GFpblxmMVxmczIyXGxh skqcASRbLBgeF5jcNvU cWKJbkArzDWnze8AnMK YxXGZzMjJccGFyfX0= Diagnosis (test code = 34) d5hujKVjCAYviPZ8KqG tPZJew4ffc7RwdLAbnB GzPXjqvGGugoPvzk30y WT5gC44DI9rMEOnSxC1 CTKdtdL8Ktq7YLBbOGY ivKXaQ120e2zjf6puoz RhyBA2vVnpDDFfosjgS fP8YOldYVYoaymvZHg6 SNfoGYCezDQ3VNVplUV vE2KbLAFuCI1juhz9SH Q6AOhyYYXfMaK8ROLse HKjCGLuvAlnTCscj895 AYM2UmGiRHDezsQpzGk jaV1wQnCwLQOIJgOkZJ SgdMwgU6XhIBVooU5ux 8y6TDsmbaCmPWr4VTBx Q7tntldnvcMhb2RjmY0 ud3bvN0NyuTixB06rj3 flpRQvmSG2vBKnQNAkc lMsQIOvTYEalIieB2r7 aXNccGFyfQ== Gross Description (test f4vyjYDaLSWimMJHNRi code = [id number]) wMVxhbnNpXHNwbHRwZ3 AllespTIfqPO5jWP5no DhfcMPsnHLfXY1TZWDf ZmYxXHBhcGVydzEyMjQ yZOMyxDCmpPN0ZUMoFI 1hcmdsMTgwMFxtYXJnc vI2RXMgyLDqF5VvBHUh GE0vxvhdGKD5CXmzvR3 ppnKJPyxsWb1lxWZhlN tcZjFcZmNoYXJzZXQwX RMfkNimAGVmOHk5lO8Q NczdI64of5E7Ypc3OVB yJRAcU8ZgJH8bVQAfiX XoH95AMeqbVXT9VZTUJ clpYUByWC8Ia0ovDGNs rDLfCCT2JIntlDPwOZK jUUZoITr5SRUgCExyoN SoGA0qcDcaQanasXsgc 2VjdCBcXGlkIDUxMDAy DFelPWNqSO3PDuQoGXJ 3GVEnOGIfDRs7HMh9ZO 0HDnJfKLJqMEV0LVZ1R RSvTVl4FEjqJI7VYEJp DmQxDGC8SBVqGEPyESL pDXl6UEJcCBhfXJCkqH FsIFxcZnMgMTAgXFxmY aHsHCPuFGnhkhA2ZBXn YWluXGJcZnMyMCBBOlx oABHsXSadeUxkcN5wWQ ByU93jp9AGh7HqIV4BD Zs2dgPbnhhpoW2iCZMk ywRgIMokwRYuY5xgNej oRmYdErWbMSRDr43itN FeyYJxROBpt5DwJTn1s wCsQ24yG3HfMOdqMYPc etWqGXVywNwsV8d4iPJ 6EBIpWPDoTQXsW87eTN Ngqq9adl48ldTsexOgh QJodAVtPcUlj1Z0XNBy x1Q7IAZzZXOmtEAnvez aSE23PCNtERTtZS0poP VkIHdpdGggcHJvYmFib NFjzAsmyeMgzMV6QVCq EFheEHScaWzuZOv0KQJ 3Om3zoVOcZKRbwyCPXR 7zHZczfl58HBB0r0lqw WVsZHtcKlxmbGRpbnN0 IEhZUEVSTElOSyBuYW1 lPUxJTktCRUdJTnwyMT SaMacimYFTHKE3OMaqs JswmYl5c1vitAEdq7w3 EMuxTKS0xAfMv1ashFQ cVWsyIdddcZEmwwR1AB oHKKSRAHpGDfThSH4qT XmXFjkABoR2XdNjHCQ0 SXbZV7UPdLN8Ugt4IHi 8fXtcZmxkcnNsdCBcJz UDfZ7ehDifzK8ctJMpC 2hcZnMyMCANClxlcGlj WkYliCHlBcQmjuU9HVX isWCpZDZ7WR3lJVQzkm syJPRfDDImXWK5IWawn Q29wBNzGSKpWVPjwDIj fVxwbGFpbiANClxzbC0 wMhTxh0uhsGs4TVNEKc qqwXFsdjqmkfO8CTRur 9ltaRscv3BekWIiDQ4m eWmvdM6sHvMdTsJNFl8 = Disclaimer (test code = r2batEOsRBCgiBLwYvA 9844) bFRAiOYDjr0dkAXGxqE FuZzEwMzNcZnRuYmpcd RJkWJRzFcZnq6awz734 yUUwb3gwUAViBpV7bDW pYCYmnLAeN560QOOhBQ iqh4ncj3HeRXWdgZBry 5I2AADWhirlxKg3cQhi T88rd5K5NciiI6ieILE jZAUzH4HmFL6oSIUkDa i3WXU1KCF3LPMpETWqC 0HuXM3rUOButTTwHGk7 r1pzlAyqEKDtDUZ8l5h kZJewslRkNT2zqt7uuO e0b6zvxbWaIKPiQMRin WJGJOLqU3MtfMwvVy7j bMo7sJtwTdemCOJ4Vgh 9GG0mhb84gcm8aPmnAX ToabdoUlU3MAdiHDLaf dpkHDi4VGpiEYJlgHJ4 IBZnyIUyN3OvQZUuVV8 ylqy7JER8HOhxBZQmBg W2DNTirDJsTWPjkDucB Uxij449SQE9VtDlEG9h C3Rwz4G7tO0zvSCrPDT diVNxXtSzBSVbdd5ufA BnUWvwy4CnXJL3krI9x LPylSKhHLVlCQ87Pxyx a6FsKfwsFTG2EPWqmxD lr5Wrm6ygOgPhgzHnG0 xdM4VhTMGqMNPiVFQuT iTluhEye8Pjy7CgvTFk eRe3p8ftJSEjJWRyoMf gq6fiNVI8HOWmW3J5dD Eqv0cgEXxsYKMfcSA2b dC0YJKzzZDzU5FtzY4a OGFtYB8ueyu0n8zxUZV 1GKnpSVGpIaN3xfB5RB BcaGVhZGVyeTcyMFxmb 424OZT5EoBqDVUnw6Cm A8JtnPisJ50wtTukZ56 sKDKbtNbkhQ7cgJpyeJ 5cZjBcZnMyNFxxbFxwb FGqskweSDromoE4PShd ogtoRVUiIPjhJ6zaArE vHRCrkQjwEVfal2WpFH GzZCPgEpjvpeG8ZVEEs 00rHQLzs1ObNZZbvC3u tPGrUBzsbkZfpKP9WOs hdmUgYmVlbiBkZXZlbG 7vFVKnVT8eMAGubaCzy v3cnyVmZSFzYBNqC4Rn cmlzdGljcyBkZXRlcm1 twmDmXIY1CUZMXI3JCB GjCAQlg56pOUPxfDijs Q7djOIylmUfFEIxm1Ft gN3eqADZABSqB1wiZV6 oAUlys9NnnZNdsDFyhL U9CUZqi6DcKpVkhlZaj DTxvAQmL4OyzIoyV9yi CIMzOZToatBtzNBqu9C gPQSnxMX3kJCiPO2PHi BCw91nSNZmQLQVaiWhW AEqdFdygCL8hpH2vX3f LiBJZiBhcHBsaWNhYmx vDHHvl495oa1wksR7CY XaFRNtoybrm4SfHHBsN UEvtJ03HXEgYWTnhe9k tuzdrHPtkgAjW9Xksfn 1jM1wXMVvPApfCNTnCH ZzMjJcbGFuZzEwMzNca GljaFxmMVxkYmNoXGYx UKvvJ3dsImQxGrHzUtr [id number] [facility] Cancer PaigeDee, [id number] 18:04:34 Test Item Value Reference Interpretation Comments [...] for thesemodifi cations were determined by [facility] [employer] [facility].If samp le result is greater than 50 0 pg/mL, physician may o rder atiter of the sample. Please contact [facility] if you wouldlike t o order a retest of this sample to obtain an actua l value.Samples a re held for 1 week after in itial testing date. Perf ormed At:[facility] [id number] [address] [place] [address] HOLDEN monaco [id number] Director: Andi Taylor Ph.D ., BCLD (ABB)CLIA#: [id number] e: [Automated message] The sy stem which generated this result transmitted ref erence range: <=80. Th e reference range was not u sed to interpret this result as normal/abnormal . Lab Interpretation Abnormal (test code = 24715-0) [facility] Cancer PaigeZak Price2022-04-21 18:04:34 Test Item Value Reference Interpretation [...] for thesemodifi cations were determined by [facility] [employer] [facility].If samp le result is greater than 50 0 pg/mL, physician may o rder atiter of the sample. Please contact [facility] if you wouldlike t o order a retest of this sample to obtain an actua l value.Samples a re held for 1 week after in itial testing date. Perf ormed At:[facility] wren[address] [place] [address]Gaahcxddog Director: Andi Taylor Ph.D ., BCLD (ABB)CLIA#: [id number] e: Lab Interpretation Abnormal (test code = 54628-3) [facility] Cancer PaigeFungitell, [id number] 18:04:34 Test Item Value Reference Interpretation Comments [...] for thesemodifi cations were determined by [facility] [employer] [facility].If samp le result is greater than 50 0 pg/mL, physician may o rder atiter of the sample. Please contact [facility] if you wouldlike t o order a retest of this sample to obtain an actua l value.Samples a re held for 1 week after in itial testing date. Perf ormed At:[facility] [id number] [address]Jnwdusmgbb Director: Andi Taylor Ph.D ., BCLD (ABB)CLIA#: [id number] e: Lab Interpretation Abnormal (test code = 47697-6) [facility] Cancer PaigeFungitell, [id number] 18:04:34 Test Item Value Reference Interpretation Comments Range [facility] S-V (test 101 pg/mL <=80 H Interpr etation: The code = 9239) [facility] assay does not detect certain fungalspecies s uch as the genus Cryptococ cus (Marcelino et alYancy 1991) wh ichproduces very low levels of (1-3)-Beta-D-Gl ucan. The assay also does not detect the Zygomycetes such as Absidia, Mucor and Rhizopus(Mitsuy a et al. 1994) which are not known [...] for thesemodifi cations were determined by [facility].If samp le result is greater than 50 0 pg/mL, physician may o rder atiter of the sample. Please contact [facility] if you wouldlike t o order a retest of this sample to obtain an actua l value.Samples a re held for 1 week after in itial testing date. Perf ormed At:[facility] [id number] [address] [place] [address] HOLDEN monaco [address]Fbzudsoqwt Director: Andi Taylor Ph.D ., BCLD (ABB)CLIA#: [id number] e: Lab Interpretation Abnormal (test code = 46698-5) [facility] Cancer PaigeZak Price2022-04-21 18:04:34 Test Item Value Reference Interpretation [...] for thesemodifi cations were determined by [facility] [employer] [facility].If samp le result is greater than 50 0 pg/mL, physician may o rder atiter of the sample. Please contact [facility] [facility] if you wouldlike t o order a retest of this sample to obtain an actua l value.Samples a re held for 1 week after in itial testing date. Perf ormed At:[facility] [id number] [address] [place] [address] HOLDEN monaco [address]Bqkmotycqw Director: Andi Taylor Ph.D ., BCLD (ABB)CLIA#: [id number] e: Lab Interpretation Abnormal (test code = 70324-3) [facility] Cancer PaigeDee, [id number] 18:04:34 Test Item Value Reference Interpretation Comments [...] for thesemodifi cations were determined by [facility].If samp le result is greater than 50 0 pg/mL, physician may o rder atiter of the sample. Please contact [facility] if you wouldlike t o order a retest of this sample to obtain an actua l value.Samples a re held for 1 week after in itial testing date. Perf ormed At:[facility] [id number] [address] [place] [address]Khlhmxoxjg Director: Andi Taylor Ph.D ., BCLD (ABB)CLIA#: [id number] e: Lab Interpretation Abnormal (test code = 98775-0) [facility] Cancer PaigeFungitell, [id number] 18:04:34 Test Item Value Reference Interpretation Comments [...] for thesemodifi cations were determined by [facility] [employer] [facility].If samp le result is greater than 50 0 pg/mL, physician may o rder atiter of the sample. Please contact [facility] [facility] if you wouldlike t o order a retest of this sample to obtain an actua l value.Samples a re held for 1 week after in itial testing date. Perf ormed At:[facility] [id number] [facility] Center[facility]OLD[facility] [place]aker [address]Totmsnsanx Director: Andi Taylor Ph.D ., BCLFallon (ABB)CLIA#: [id number] e: Lab Interpretation Abnormal (test code = 91639-5) [facility] Cancer PaigeRespiratory PCR Panel Path Review 2021-10-18 14:39:17RMP PRReviewed and Electronically signed by Pathologist:Mary Beth Parikh MD, PhD #[id number] [facility] Eqcgva2076-90-61 14:39:17RMP PRReviewed and Electronically signed by Pathologist:Mary Beth Parikh MD, PhD #[id number] [facility] Path [id number] 14:39:17RMP PRReviewed and Electronically signed by Pathologist:Mary Beth Parikh MD, PhD #[id number] [facility] Path [id number] 14:39:17RMP PRReviewed and Electronically signed by Pathologist:Mary Beth Parikh MD, PhD #[id number] [facility] Review 2021-10-18 14:39:17RMP PRReviewed and Electronically signed by Pathologist:Mary Beth Parikh MD, PhD #[id number] [facility] Path Cbafgb2331-32-74 14:39:17RMP PRReviewed and Electronically signed by Pathologist:Mary Beth Parikh MD, PhD #[id number] [facility] Path Ltpjwq3517-85-56 14:39:17RMP PRReviewed and Electronically signed by Pathologist:Mary Beth Parikh MD, PhD #[id number] [facility], MANUAL QA TESTER Mtte2427-63-87 14:29:47 Test Item Value Reference Range Interpretation [...] 6203) Lab Interpretation (test code = Abnormal 43215-2) [facility] Cancer PaigeRespiratory PCR Panel, MANUAL QA TESTER Swab 2021-10-18 14:29:47 Test Item Value Reference [...] 6203) Lab Interpretation (test code = Abnormal 33652-7) [facility], MANUAL QA TESTER Swab 2021-10-18 14:29:47 Test Item Value Reference [...] 6203) Lab Interpretation (test code = Abnormal 85567-5) [facility], MANUAL QA TESTER Swab 2021-10-18 14:29:47 Test Item Value Reference [...] 6203) Lab Interpretation (test code = Abnormal 87736-0) [facility] Cancer PaigeRespiratory PCR Panel, MANUAL QA TESTER Swab 2021-10-18 14:29:47 Test Item Value Reference [...] 6203) Lab Interpretation (test code = Abnormal 88068-9) [facility], MANUAL QA TESTER Swab 2021-10-18 14:29:47 Test Item Value Reference [...] 6203) Lab Interpretation (test code = Abnormal 75449-9) [facility], MANUAL QA TESTER Swab 2021-10-18 14:29:47 Test Item Value Reference [...] 6203) Lab Interpretation (test code = Abnormal 93181-4) [facility] Cancer [facility] Glucose Eydgau3791-15-40 11:58:24 Test Item Value Reference Interpretation Comments Range POC Glucose (test 196 mg/dL 70-99 H RN Notifie dCapillary code = 83139-3) blood sample s, e.g. obtained by fingerstick, ma y have inaccurate resu lts in patients with decreased perip heral blood flow. Met hod description: Al l results are ayan sured using Electroch emistry test methodolog y. The glucose in the sample mixes with the reagents on the test strip. The reac tion produces an kcay ctric current. The am ount of current produce d is proportional to the glucose concent ration in the blood. PO Sample Type (test Capillary code = 9554) Performing Lab (test [facility] Main Main [facility] code = 27109) [facility] MD Farhan gustafson Clinical Lab, [address] [place] [address] 30; Whipped Topping Supervisor: Aletha Arciniega MD Lab Interpretation Abnormal (test code = 28006-3) [facility] Glucose Nvqaiy9699-52-30 11:58:24 Test Item Value Reference Interpretation Comments Range POC Glucose (test 196 mg/dL 70-99 H RN Notifie dCapillary code = 51725-8) blood sample s, e.g. obtained by fingerstick, [...] = 9554) Performing Lab (test [facility] code = 22369) [facility] MD Farhan gustafson Clinical Lab, [address] [place] [address] 30; Whipped Topping Supervisor: Aletha Arciniega MD Lab Interpretation Abnormal (test code = 84943-0) [facility] Glucose Papjiv1404-89-75 11:58:24 Test Item Value Reference Interpretation Comments Range POC Glucose (test 196 mg/dL 70-99 H RN Notifie dCapillary code = 36470-5) blood sample s, e.g. obtained by fingerstick, [...] = 9554) Performing Lab (test [facility] code = 43384) [facility] MD Farhan gustafson Clinical Lab, [address] [place] [address] 30; Whipped Topping Supervisor: Aletha Arciniega MD Lab Interpretation Abnormal (test code = 58827-3) [facility] Glucose [id number] 11:58:24 Test Item Value Reference Interpretation Comments Range POC Glucose (test 196 mg/dL 70-99 H RN Notifie dCapillary code = 54095-8) blood sample s, e.g. obtained by fingerstick, [...] = 9554) Performing Lab (test [facility] code = 92011) [facility] Lab, [address] [place] [address] 30; Whipped Topping Supervisor: Aletha Arciniega MD Lab Interpretation Abnormal (test code = 40665-8) [facility] Glucose Seojvh1779-87-72 11:58:24 Test Item Value Reference Interpretation Comments Range POC Glucose (test 196 mg/dL 70-99 H RN Notifie dCapillary code = 62593-3) blood sample s, e.g. obtained by fingerstick, [...] = 9554) Performing Lab (test [facility] code = 35105) [facility] MD [facility] Lab, [address] [place] [address] 30; Whipped Topping Supervisor: Aletha Arciniega MD Lab Interpretation Abnormal (test code = 40848-3) [facility] Glucose Kbphoj2808-47-28 11:58:24 Test Item Value Reference Interpretation Comments Range POC Glucose (test 196 mg/dL 70-99 H RN Notifie dCapillary code = 03324-6) blood sample s, e.g. obtained by fingerstick, [...] = 9554) Performing Lab (test [facility] code = 60248) [facility] MD Farhan gustafson Clinical Lab, [address] [place] [address] 30; Whipped Topping Supervisor: Aletha Arciniega MD Lab Interpretation Abnormal (test code = 51756-8) [facility] Glucose Xfyjez1374-06-16 11:58:24 Test Item Value Reference Interpretation Comments Range POC Glucose (test 196 mg/dL 70-99 H RN Notifie dCapillary code = 39196-6) blood sample s, e.g. obtained by fingerstick, [...] = 9554) Performing Lab (test [facility] code = 42503) [facility] MD Farhan gustafson Clinical Lab, [address] [place] [address] 30; Whipped Topping Supervisor: Aletha Arciniega MD Lab Interpretation Abnormal (test code = 99030-4) [facility] Kvunjbn8889-76-20 18:35:38 Test Item Value Reference Range Interpretation Comments Final Report (test No Methicillin resistant code = 8488) Staphylococcus aureus isolated. Path Review (test The results have been code = 8492) reviewed and electronically signed by Pathologist:Mary Beth Parikh MD, PhD #[id number] [facility] Screening Pjebxwv8978-82-31 18:35:38 Test Item Value Reference Range Interpretation Comments Final Report (test No Methicillin resistant code = 8488) Staphylococcus aureus isolated. Path Review (test The results have been code = 8492) reviewed and electronically signed by Pathologist:Mary Beth Parikh MD, PhD #[id number] [facility] Screening Vqwiavd9091-01-83 18:35:38 Test Item Value Reference Range Interpretation Comments Final Report (test No Methicillin resistant code = 8488) Staphylococcus aureus isolated. Path Review (test The results have been code = 8492) reviewed and electronically signed by Pathologist:Mary Beth Parikh MD, PhD #[id number] [facility] Screening Pxdunuu2813-18-58 18:35:38 Test Item Value Reference Range Interpretation Comments Final Report (test No Methicillin resistant code = 8488) Staphylococcus aureus isolated. Path Review (test The results have been code = 8492) reviewed and electronically signed by Pathologist:Mary Beth Parikh MD, PhD #[id number] [facility] Screening Lzspkkm4776-04-93 18:35:38 Test Item Value Reference Range Interpretation Comments Final Report (test No Methicillin resistant code = 8488) Staphylococcus aureus isolated. Path Review (test The results have been code = 8492) reviewed and electronically signed by Pathologist:Mary Beth Parikh MD, PhD #[id number] [facility] Screening Cjbxeva6803-24-04 18:35:38 Test Item Value Reference Range Interpretation Comments Final Report (test No Methicillin resistant code = 8488) Staphylococcus aureus isolated. Path Review (test The results have been code = 8492) reviewed and electronically signed by Pathologist:Mary Beth Parikh MD, PhD #[id number] [facility] Screening Uzlegoe2178-57-88 18:35:38 Test Item Value Reference Range Interpretation Comments Final Report (test No Methicillin resistant code = 8488) Staphylococcus aureus isolated. Path Review (test The results have been code = 8492) reviewed and electronically signed by Pathologist:Mary Beth Parikh MD, PhD #[id number] [facility] Vancomycin trough on 10/17/21@10:30AM. Nurse [...] is code = not availablefo r this 09271-6) sample. The donna e reported is the samplecollectio n date. Vanco Tr Dose 10/17/2021 Level, date, a nd time Date (test of previous dos e is code = not availablefo r this 13652-9) sample. The donna e reported is the samplecollectio n date. PAIGE (test Vancomycin trough on code = PAIGE) 10/17/21@10:30AM. Nurse please coordinate with lab to draw trough approximately 11 - 11.5hours after 10/16/21 evening vanco dose. Hold vancomycin doses if trough is greater than 20 and notify MD. Thanks! [facility] Vancomycin trough on 10/17/21@10:30AM. Nurse [...] is code = not availablefo r this 32910-1) sample. The donna e reported is the samplecollectio n date. Vanco Tr Dose 10/17/2021 Level, date, a nd time Date (test of previous dos e is code = not availablefo r this 29517-0) sample. The donna e reported is the samplecollectio n date. PAIGE (test Vancomycin trough on code = PAIGE) 10/17/21@10:30AM. Nurse please coordinate with lab to draw trough approximately 11 - 11.5hours after 10/16/21 evening vanco dose. Hold vancomycin doses if trough is greater than 20 and notify MD. Thanks! [facility] Vancomycin trough on 10/17/21@10:30AM. Nurse [...] is code = not availablefo r this 15239-0) sample. The donna e reported is the samplecollectio n date. Vanco Tr Dose 10/17/2021 Level, date, a nd time Date (test of previous dos e is code = not availablefo r this 09678-6) sample. The donna e reported is the samplecollectio n date. PAIGE (test Vancomycin trough on code = PAIGE) 10/17/21@10:30AM. Nurse please coordinate with lab to draw trough approximately 11 - 11.5hours after 10/16/21 evening vanco dose. Hold vancomycin doses if trough is greater than 20 and notify MD. Thanks! [facility] Vancomycin trough on 10/17/21@10:30AM. Nurse [...] is code = not availablefo r this 16639-5) sample. The donna e reported is the samplecollectio n date. Vanco Tr Dose 10/17/2021 Level, date, a nd time Date (test of previous dos e is code = not availablefo r this 69537-5) sample. The donna e reported is the samplecollectio n date. PAIGE (test Vancomycin trough on code = PAIGE) 10/17/21@10:30AM. Nurse please coordinate with lab to draw trough approximately 11 - 11.5hours after 10/16/21 evening vanco dose. Hold vancomycin doses if trough is greater than 20 and notify MD. Thanks! [facility] Cancer PaigeVancomycin Trough Vancomycin trough on 10/17/21@10:30AM. Nurse please [...] is code = not availablefo r this 69256-8) sample. The donna e reported is the samplecollectio n date. Vanco Tr Dose 10/17/2021 Level, date, a nd time Date (test of previous dos e is code = not availablefo r this 86882-1) sample. The donna e reported is the samplecollectio n date. PAIGE (test Vancomycin trough on code = PAIGE) 10/17/21@10:30AM. Nurse please coordinate with lab to draw trough approximately 11 - 11.5hours after 10/16/21 evening vanco dose. Hold vancomycin doses if trough is greater than 20 and notify MD. Thanks! [facility] Vancomycin trough on 10/17/21@10:30AM. Nurse [...] is code = not availablefo r this 05696-3) sample. The donna e reported is the samplecollectio n date. Vanco Tr Dose 10/17/2021 Level, date, a nd time Date (test of previous dos e is code = not availablefo r this 07858-4) sample. The donna e reported is the samplecollectio n date. PAIGE (test Vancomycin trough on code = PAIGE) 10/17/21@10:30AM. Nurse please coordinate with lab to draw trough approximately 11 - 11.5hours after 10/16/21 evening vanco dose. Hold vancomycin doses if trough is greater than 20 and notify MD. Thanks! [facility] Vancomycin trough on 10/17/21@10:30AM. Nurse [...] is code = not availablefo r this 68800-5) sample. The donna e reported is the samplecollectio n date. Vanco Tr Dose 10/17/2021 Level, date, a nd time Date (test of previous dos e is code = not availablefo r this 67048-0) sample. The donna e reported is the samplecollectio n date. PAIGE (test Vancomycin trough on code = PAIGE) 10/17/21@10:30AM. Nurse please coordinate with lab to draw trough approximately 11 - 11.5hours after 10/16/21 evening vanco dose. Hold vancomycin doses if trough is greater than 20 and notify MD. Thanks! [facility] CenterLegionella Urine Antigen Path [id number] 15:56:29[facility] Urine Antigen Path ReviewReviewed and Electronically signed by Pathologist:Mary Beth Charles, PhD #[id number] [facility]ATIONUnBallinger [facility] DistrictLegionella Urine Antigen Path Kuyake9177-03-13 15:56:29[facility] Urine Antigen Path ReviewReviewed and Electronically signed by Pathologist:Mary Beth Charles, PhD #[id number] [facility] CORPORATIONUnBallinger [facility] District Legionella Urine Antigen Path Lenzuu6520-65-22 15:56:29[facility] Urine Antigen Path ReviewReviewed and Electronically signed by Pathologist:Mary Beth Charles, PhD #[id number] [facility] CORPORATIONUnBallinger [facility] Hospital DistrictLegionella Urine Antigen Path Zxyyxt5631-88-23 15:56:29[facility] Urine Antigen Path ReviewReviewed and Electronically signed by Pathologist:Mary Beth Charles, PhD #[id number] [facility]PORATIONUnBall[facility] Hospital DistrictLegionella Urine Antigen Path Jnivfu6766-39-72 15:56:29[facility] Urine Antigen Path ReviewReviewed and Electronically signed by Pathologist:Mary Beth Charles, PhD #[id number] [facility]PORATIONUnBallinger [facility] Hospital DistrictLegionella Urine Antigen Path Esuypf9869-64-25 15:56:29[facility] Urine Antigen Path ReviewReviewed and Electronically signed by Pathologist:Mary Beth Charles, PhD #[id number] [facility] HospitalLegion[facility] U[facility] Antigen Path Qeojut4497-27-02 15:56:29[facility] Urine Antigen Path ReviewReviewed and Electronically signed by Pathologist:Mary Beth Charles, PhD #[id number] [facility] CORPORATIONUnBallinger [facility] Hospital DistrictProcalcitonin 2021-10-17 11:00:32Procalcitonin<0.04<=0.08 ng/mLUT [facility]ENTERUnBallinger [facility] Hospital DistrictProcalcitonin2022-04-20 11:00:32Procalcitonin<0.04<=0.08 ng/mLUT [facility] HospitalProcal[facility]2022-04-20 11:00:32 Procalcitonin<0.04<=0.08 ng/mLUT [facility] CenterProcal[facility]onin2022-04-20 11:00:32 Procalcitonin<0.04<=0.08 ng/mLUT [facility] CENTERUnBallinger [facility] Hospital DistrictProcalcitonin2022-04-20 11:00:32 Test Item Value Reference Range Interpretation Comments Procalcitonin (test code <0.04 See_Comment Pro calcitonin > 2.00 = 75771-9) ng/mL: Procalci tonin levels above 2. 00 [...] d ilution as it exceeds t he medical record specialist's recommended ching it. Caution should be exercised when interpreting nunez ch values and done in con junction with clinical c ontext. [Automated mess age] The system which ge nerated this result tra nsmitted reference range : <=0.08 ng/mL. The refe rence range was not u sed to interpret this result as normal/abnormal . [facility] CenterProcalcitonin2022-04-20 11:00:32 Test Item Value Reference Range Interpretation Comments Procalcitonin (test code <0.04 See_Comment Pro calcitonin > 2.00 = 00025-6) ng/mL: Procalci tonin levels above 2. 00 [...] d ilution as it exceeds t he medical record specialist's recommended ching it. Caution should be exercised when interpreting nunez ch values and done in con junction with clinical c ontext. [Automated mess age] The system which ge nerated this result tra nsmitted reference range : <=0.08 ng/mL. The refe rence range was not u sed to interpret this result as normal/abnormal . [facility] CenterProcalcitonin2022-04-20 11:00:32 Test Item Value Reference Range Interpretation Comments Procalcitonin (test code <0.04 See_Comment Pro calcitonin > 2.00 = 05559-2) ng/mL: Procalci tonin levels above 2. 00 [...] d ilution as it exceeds t he medical record specialist's recommended ching it. Caution should be exercised when interpreting nunez ch values and done in con junction with clinical c ontext. [Automated mess age] The system which ge nerated this result tra nsmitted reference range : <=0.08 ng/mL. The refe rence range was not u sed to interpret this result as normal/abnormal . [facility] CenterLegionella Urine Italrdn8869-96-50 19:49:58 Test Item Value Reference Range Interpretation Comments Legionella Urine Antigen Negative Interpretation (test code = 8190915) [facility] CenterLegionella Urine [id number] 19:49:58 Test Item Value Reference Range Interpretation Comments Legionella Urine Antigen Negative Interpretation (test code = 9344377) [facility] CenterLegionella Urine Wewrbdh0775-42-44 19:49:58 Test Item Value Reference Range Interpretation Comments Legionella Urine Antigen Negative Interpretation (test code = 2663654) [facility] CenterLegionella Urine Cwpybzd0333-05-34 19:49:58 Test Item Value Reference Range Interpretation Comments Legionella Urine Antigen Negative Interpretation (test code = 9170647) [facility] CenterLegionella Urine Htjmact7797-12-15 19:49:58 Test Item Value Reference Range Interpretation Comments Legionella Urine Antigen Negative Interpretation (test code = 3654756) [facility] CenterLegionella Urine Kzjhzpw1434-65-34 19:49:58 Test Item Value Reference Range Interpretation Comments Legionella Urine Antigen Negative Interpretation (test code = [id number]) [facility] CenterLegionella Urine Sirsmbt7974-63-59 19:49:58 Test Item Value Reference Range Interpretation Comments Legionella Urine Antigen Negative Interpretation (test code = 2050332) [facility] Americatreptococcal Urine Antigen Path Nixqol1271-39-80 18:06:35Streptococcal Urine Antigen Path ReviewReviewed and Electronically signed by Pathologist:Mary Beth Parikh MD, PhD #[id number] [facility] CORPORATIONUnHouston [facility] Hospitaltreptococcal Urine Antigen Path Dubjfh8111-01-97 18:06:35Streptococcal Urine Antigen Path ReviewReviewed and Electronically signed by Pathologist:Mary Beth Parikh MD, PhD #[id number] [facility]PORATIONUn[facility] Streptococcal Urine Antigen Path Cieois8465-15-88 18:06:35Streptococcal Urine Antigen Path ReviewReviewed and Electronically signed by Pathologist:Mary Beth Parikh MD, PhD #[id number] [facility]PORATIONUnHouston [facility] Hospitaltreptococcal Urine Antigen Path Mndiwp7920-65-70 18:06:35 Streptococcal Urine Antigen Path ReviewReviewed and Electronically signed by Pathologist:Mary Beth Parikh MD, PhD #[id number] [facility]PORATIONUnHouston [facility] Hospitaltreptococcal Urine Antigen Path Review 2021-10-16 18:06:35Streptococcal Urine Antigen Path ReviewReviewed and Electronically signed by Pathologist:Mary Beth Parikh MD, PhD #[id number] [facility]PORATIONUnHouston [facility] Hospitaltreptococcal Urine Antigen Path Dwhuaj6281-90-82 18:06:35Streptococcal Urine Antigen Path ReviewReviewed and Electronically signed by Pathologist:Mary Beth Parikh MD, PhD #[id number] [facility]PORATIONUnBallinger [facility] District Streptococcal Urine Antigen Path [id number] 18:06:35Streptococcal Urine Antigen Path ReviewReviewed and Electronically signed by Pathologist:Mary Beth Parikh MD, PhD #[id number] [facility]INGTONUnHouston [facility] Hospitaltreptococcus pneumoniae Urine Qetcuyo4936-32-85 16:43:46 Test Item Value Reference Range Interpretation Comments Streptococcal Urine Antigen Negative Negative Interpretation (test code = 14842488) [facility] Americatreptococcus pneumoniae Urine Volhebo0044-30-29 16:43:46 Test Item Value Reference Range Interpretation Comments Streptococcal Urine Antigen Negative Negative Interpretation (test code = 91528255) [facility] Americatreptococcus pneumoniae Urine Cfasatq9647-03-33 16:43:46 Test Item Value Reference Range Interpretation Comments Streptococcal Urine Antigen Negative Negative Interpretation (test code = 29574739) [facility] Americatreptococcus pneumoniae Urine Shaxruu1372-17-88 16:43:46 Test Item Value Reference Range Interpretation Comments Streptococcal Urine Antigen Negative Negative Interpretation (test code = 61615564) [facility] Americatreptococcus pneumoniae Urine Fghmpnh6515-81-66 16:43:46 Test Item Value Reference Range Interpretation Comments Streptococcal Urine Antigen Negative Negative Interpretation (test code = 56548338) [facility] Americatreptococcus pneumoniae Urine Fsymtce4402-55-15 16:43:46 Test Item Value Reference Range Interpretation Comments Streptococcal Urine Antigen Negative Negative Interpretation (test code = 56655381) [facility] Americatreptococcus pneumoniae Urine Jscbufk6085-90-89 16:43:46 Test Item Value Reference Range Interpretation Comments Streptococcal Urine Antigen Negative Negative Interpretation (test code = 12349083) [facility]Trop[facility] ([facility])2021-[facility]-15 18:48:52 Test Item Value Reference Range Interpretation Comments Troponin T (test code = 23 ng/L See_Comment H < 19 ng/L Suggest 77583-1) retest at 3 to 6 hours later [...] res ults. [Automated mess age] The system [employer] generated this result transmitted ref erence range: <=18. Th e reference range was not used to int erpret this result as normal/abnormal . Lab Interpretation Abnormal (test code = 58823-6) [facility] CenterTrop[facility] ([facility])2021-10-15 18:48:52 Test Item Value Reference Range Interpretation Comments Troponin T (test code = 23 ng/L <=18 H < 19 ng/L Suggest 75019-1) retest at 3 to 6 hours later [...] ults. Lab Interpretation Abnormal (test code = 84570-0) [facility] CenterTroponin T ([facility]House)2021-10-15 18:48:52 Test Item Value Reference Range Interpretation Comments Troponin T (test code = 23 ng/L <=18 H < 19 ng/L Suggest 92109-0) retest at 3 to 6 hours later [...] ults. Lab Interpretation Abnormal (test code = 93558-1) [facility] CenterTrop[facility] (In[facility]House)2021-10-15 18:48:52 Test Item Value Reference Range Interpretation Comments Troponin T (test code = 23 ng/L <=18 H < 19 ng/L Suggest 51602-4) retest at 3 to 6 hours later [...] ults. Lab Interpretation Abnormal (test code = 12523-0) [facility] CenterT[facility] ([facility])2021-10-15 18:48:52 Test Item Value Reference Range Interpretation Comments Troponin T (test code = 23 ng/L See_Comment H < 19 ng/L Suggest 61938-7) retest at 3 to 6 hours later [...] res ults. [Automated mess age] The system [employer] generated this result transmitted ref erence range: <=18. Th e reference range was not used to int erpret this result as normal/abnormal . Lab Interpretation Abnormal (test code = 18874-3) [facility] CenterTrop[facility] ([facility])2021-10-15 18:48:52 Test Item Value Reference Range Interpretation Comments Troponin T (test code = 23 ng/L See_Comment H < 19 ng/L Suggest 91273-7) retest at 3 to 6 hours later [...] res ults. [Automated mess age] The system [employer] generated this result transmitted ref erence range: <=18. Th e reference range was not used to int erpret this result as normal/abnormal . Lab Interpretation Abnormal (test code = 42671-6) [facility] CenterTrop[facility] ([facility])2021-10-15 18:48:52 Test Item Value Reference Range Interpretation Comments Troponin T (test code = 23 ng/L See_Comment H < 19 ng/L Suggest 55294-3) retest at 3 to 6 hours later [...] res ults. [Automated mess age] The system [employer] generated this result transmitted ref erence range: <=18. Th e reference range was not used to int erpret this result as normal/abnormal . Lab Interpretation Abnormal (test code = 72403-0) [facility] CenterLDH2022-04-[facility] 16:36:02 Test Item Value Reference Range Interpretation Comments LDH (test code = 247 U/L 135-225 H Results gre ater than 75456-7) 1651 U/L may no t be reliable due to matrix effect w ith extended diluti on as it exceeds the medical record specialist's recommended ching it. Caution should be exercised when interpreting nunez ch values and done in conjunction [facility] clinical Rebyoox t. Lab Interpretation (test Abnormal code = 76189-4) [facility] CenterLDH2022-04-18 16:36:02 Test Item Value Reference Range Interpretation Comments LDH (test code = 247 U/L 135-225 H Results gre ater than 28760-8) 1651 U/L may no t be reliable due to matrix effect w ith extended diluti on as it exceeds the medical record specialist's recommended ching it. Caution should be exercised when interpreting nunez ch values and done in conjunction [facility] Hyperinkx t. Lab Interpretation (test Abnormal code = 94071-8) [facility] CenterLDH2022-04-18 16:36:02 Test Item Value Reference Range Interpretation Comments LDH (test code = 247 U/L 135-225 H Results gre ater than 48625-2) 1651 U/L may no t be reliable due to matrix effect w ith extended diluti on as it exceeds the medical record specialist's recommended ching it. Caution should be exercised when interpreting nunez ch values and done in conjunction [facility] clinical Rebyoox t. Lab Interpretation (test Abnormal code = 82219-3) [facility] CenterLDH2022-04-18 16:36:02 Test Item Value Reference Range Interpretation Comments LDH (test code = 247 U/L 135-225 H Results gre ater than 56988-7) 1651 U/L may no t be reliable due to matrix effect w ith extended diluti on as it exceeds the medical record specialist's recommended ching it. Caution should be exercised when interpreting nunez ch values and done in conjunction [facility] clinical contex t. Lab Interpretation (test Abnormal code = 36957-6) [facility] CenterLDH2022-04-[facility] 16:36:02 Test Item Value Reference Range Interpretation Comments LDH (test code = 247 U/L 135-225 H Results gre ater than 54926-1) 1651 U/L may no t be reliable due to matrix effect w ith extended diluti on as it exceeds the medical record specialist's recommended ching it. Caution should be exercised when interpreting nunez ch values and done in conjunction [facility] clinical contex t. Lab Interpretation (test Abnormal code = 93946-9) [facility] CenterLDH2022-04-[facility] 16:36:02 Test Item Value Reference Range Interpretation Comments LDH (test code = 247 U/L 135-225 H Results gre ater than 43171-4) 1651 U/L may no t be reliable due to matrix effect w ith extended diluti on as it exceeds the medical record specialist's recommended ching it. Caution should be exercised when interpreting nunez ch values and done in conjunction [facility] clinical Rebyoox t. Lab Interpretation (test Abnormal code = 27081-6) [facility] CenterLDH2022-04-18 16:36:02 Test Item Value Reference Range Interpretation Comments LDH (test code = 247 U/L 135-225 H Results gre ater than 06037-6) 1651 U/L may no t be reliable due to matrix effect w ith extended diluti on as it exceeds the medical record specialist's recommended ching it. Caution should be exercised when interpreting nunez ch values and done in conjunction [facility] clinical Rebyoox t. Lab Interpretation (test Abnormal code = 32961-2) [facility] CenterNT-Pro BNP (In-House)2021-10-15 16:31:03 Test Item Value Reference Range Interpretation Comments NT ProBNP (test code = 137 pg/mL See_Comment H [Aut omated message] 26797-5) The system [employer] generated this result transmit lakhwinder reference range : <=125. The refe rence range was not u sed to interpret th is result as normal/abnormal . Lab Interpretation (test Abnormal code = 03319-0) [facility] CenterNT[facility] BNP (In-House)2021-10-15 16:31:03 Test Item Value Reference Range Interpretation Comments NT ProBNP (test code = 68315-3) 137 pg/mL <=125 H Lab Interpretation (test code = Abnormal 51858-7) [facility] CenterNT[facility] BNP ([facility]-House)2021-10-15 16:31:03 Test Item Value Reference Range Interpretation Comments NT ProBNP (test code = 26653-1) 137 pg/mL <=125 H Lab Interpretation (test code = Abnormal 17172-8) [facility] CenterNT[facility] BNP ([facility]-House)2021-10-15 16:31:03 Test Item Value Reference Range Interpretation Comments NT ProBNP (test code = 57291-8) 137 pg/mL <=125 H Lab Interpretation (test code = Abnormal 96770-6) [facility] CenterNT[facility] BNP (In-House)2021-10-15 16:31:03 Test Item Value Reference Range Interpretation Comments NT ProBNP (test code = 137 pg/mL See_Comment H [Aut omated message] 66802-3) The system [employer] generated this result transmit lakhwinder reference range : <=125. The refe rence range was not u sed to interpret th is result as normal/abnormal . Lab Interpretation (test Abnormal code = 58913-3) [facility]NT[facility] ([facility]-House)2021-10-15 16:31:03 Test Item Value Reference Range Interpretation Comments NT ProBNP (test code = 137 pg/mL See_Comment H [Aut omated message] 79062-5) The system [employer] generated this result transmit lakhwinder reference range : <=125. The refe rence range was not u sed to interpret th is result as normal/abnormal . Lab Interpretation (test Abnormal code = 04267-8) [facility]NT[facility] ([facility]-House)2021-10-15 16:31:03 Test Item Value Reference Range Interpretation Comments NT ProBNP (test code = 137 pg/mL See_Comment H [Aut omated message] 15922-3) The system [employer] generated this result transmit lakhwinder reference range : <=125. The refe rence range was not u sed to interpret th is result as normal/abnormal . Lab Interpretation (test Abnormal code = 65137-4) [facility] CenterCreatine Nzymjk4010-48-02 16:31:01 Test Item Value Reference Range Interpretation Comments CK (test code = 2157-6) 48 U/L 39-308 [facility] CenterCreat[facility] Vrpexh3331-51-02 16:31:01 Test Item Value Reference Range Interpretation Comments CK (test code = 2157-6) 48 U/L 39-308 [facility] CenterCreat[facility] Gplnix6576-26-96 16:31:01 Test Item Value Reference Range Interpretation Comments CK (test code = 2157-6) 48 U/L 39-308 [facility] CenterCreat[facility] Ensovc0524-18-01 16:31:01 Test Item Value Reference Range Interpretation Comments CK (test code = 2157-6) 48 U/L 39-308 [facility] CenterCreat[facility] Nyhwdv1066-75-67 16:31:01 Test Item Value Reference Range Interpretation Comments CK (test code = 2157-6) 48 U/L 39-308 [facility] CenterCreat[facility] Gwevbr6900-84-28 16:31:01 Test Item Value Reference Range Interpretation Comments CK (test code = 2157-6) 48 U/L 39-308 [facility] CenterCreat[facility] Icxory8961-49-88 16:31:01 Test Item Value Reference Range Interpretation Comments CK (test code = 2157-6) 48 U/L 39-308 [facility] CenterCKMB2022-04-18 16:31:00 Test Item Value Reference Range Interpretation Comments CK MB (test code = 2.2 ng/mL See_Comment [Automat ed message] The 97081-1) system which ge nerated this result tra nsmitted reference range : <=10.4. The reference r jose was not used to int erpret this result as normal/abnormal . [facility]2022-04-18 16:31:00 Test Item Value Reference Range Interpretation Comments CK MB (test code = 09878-4) 2.2 ng/mL <=10.4 [facility] 16:31:00 Test Item Value Reference Range Interpretation Comments CK MB (test code = 76730-4) 2.2 ng/mL <=10.4 [facility] 16:31:00 Test Item Value Reference Range Interpretation Comments CK MB (test code = 61097-0) 2.2 ng/mL <=10.4 [facility]2022-04-18 16:31:00 Test Item Value Reference Range Interpretation Comments CK MB (test code = 2.2 ng/mL See_Comment [Automat ed message] The 81450-4) system which ge nerated this result tra nsmitted reference range : <=10.4. The reference r jose was not used to int erpret this result as normal/abnormal . [facility]2022-04-18 16:31:00 Test Item Value Reference Range Interpretation Comments CK MB (test code = 2.2 ng/mL See_Comment [Automat ed message] The 00222-1) system which ge nerated this result tra nsmitted reference range : <=10.4. The reference r jose was not used to int erpret this result as normal/abnormal . [facility]2022-04-18 16:31:00 Test Item Value Reference Range Interpretation Comments CK MB (test code = 2.2 ng/mL See_Comment [Automat ed message] The 20240-3) system which ge nerated this result tra nsmitted reference range : <=10.4. The reference r jose was not used to int erpret this result as normal/abnormal . [facility] CenterCOVID-19 (SARS-CoV-2)Ntsjtcrzepth-TG8139-59-18 16:04:24 Test Item Value Reference Range Interpretation Comments COVID19 Not Detected Not Detected (SARS-CoV-2) (test code = 46344-3) COVID19 SARS Inpatient Indication (test Admission code = 23835) Covid 19 Comment See Note The kacy S ARS-CoV-2 (test code = [place] [address]) use on the xenia s [employer] [...] sheet for patie nts provided by the medical record specialist ([employer]) can be rev iewed at: https://www.fda .gov/m edia/488047/kunal nload. A fact sheet fo r Health Care pro viders is provided by the medical record specialist ([employer]) and can be reviewed at: https://www.fda .gov/m edia/997907/kunal nload Results must be interpreted wit hin [...] high-comple xity tests. [facility], CLIA Accreditation #[id number] and CAP Accreditation #[id number], verif ied the performance characteristics of this assay. Int ernal controls are ed to monitor all sta ges of the test proces s. [facility] CenterCOVID-19 (SARS-CoV-2)Ozextmzlkmxw-AD2720-06-18 16:04:24 Test Item Value Reference Range Interpretation Comments COVID19 Not Detected Not Detected (SARS-CoV-2) (test code = 25549-3) COVID19 SARS Inpatient Indication (test Admission code = 86753) Covid 19 Comment See Note The kacy S ARS-CoV-2 (test code = [place] [address]) use on the xenia s [employer] [...] sheet for patie nts provided by the medical record specialist ([employer]) can be rev iewed at: https://www.fda .gov/ edia/168302/kunal nload. A fact sheet fo r Health Care pro viders is provided by the medical record specialist ([employer]) and can be reviewed at: https://www.fda .gov/m edia/703590/kunal nload Results must be interpreted wit hin [...] high-comple xity tests. [facility], CLIA Accreditation #[id number] and CAP Accreditation #[id number], verif ied the performance characteristics of this assay. Int ernal controls are ed to monitor all sta ges of the test proces s. [facility] PaigeCOVID-19 (SARS-CoV-2)Qeqlojlzmafa-RT3644-02-18 16:04:24 Test Item Value Reference Range Interpretation Comments COVID19 Not Detected Not Detected (SARS-CoV-2) (test code = 90216-3) COVID19 SARS Inpatient Indication (test Admission code = 30496) Covid 19 Comment See Note The kacy S ARS-CoV-2 (test code = [place] [address]) use on the xenia s [employer] [...] sheet for patie nts provided by the medical record specialist ([employer]) can be rev iewed at: https://www.fda .gov/ edia/811343/kunal nload. A fact sheet fo r Health Care pro viders is provided by the medical record specialist ([employer]) and can be reviewed at: https://www.fda .gov/m edia/272624/kunal nload Results must be interpreted wit hin [...] is assay has been authorized by t [facility] for use only un areli Emergency Use Authorization ( EUA) in laboratories that have been CLIA-certified to perform moderate-comple xity and high-comple xity tests. [facility], CLIA Accreditation #[id number] and CAP Accreditation #[id number], verif ied the performance characteristics of this assay. Int ernal controls are us ed to monitor all sta ges of the test proces s. [facility] CenterCOVID-19 (SARS-CoV-2)Dwyxbtltclur-UQ6082-15-18 16:04:24 Test Item Value Reference Range Interpretation Comments COVID19 Not Detected Not Detected (SARS-CoV-2) (test code = 70370-4) COVID19 SARS Inpatient Indication (test Admission code = 72419) Covid 19 Comment See Note The kacy S ARS-CoV-2 (test code = [place] [address]) use on the xenia s [employer] [...] sheet for patie nts provided by the medical record specialist ([employer]) can be rev iewed at: https://www.fda .gov/ edia/164213/kunal nload. A fact sheet fo r Health Care pro viders is provided by the medical record specialist ([employer]) and can be reviewed at: https://www.fda .gov/m edia/240140/kunal nload Results must be interpreted wit hin [...] is assay has been authorized by t [facility] for use only un areli Emergency Use Authorization ( EUA) in laboratories that have been CLIA-certified to perform moderate-comple xity and high-comple xity tests. [facility], CLIA Accreditation #[id number] and CAP Accreditation #[id number], verif ied the performance characteristics of this assay. Int ernal controls are us ed to monitor all sta ges of the test proces s. [facility] CenterCOVID-19 (SARS-CoV-2)Hodiorlgygrx-UT6216-19-18 16:04:24 Test Item Value Reference Range Interpretation Comments COVID19 Not Detected Not Detected (SARS-CoV-2) (test code = 98841-2) COVID19 SARS Inpatient Indication (test Admission code = 99047) Covid 19 Comment See Note The kacy S ARS-CoV-2 (test code = [place] [address]) use on the xenia s [employer] [...] sheet for patie nts provided by the medical record specialist ([employer]) can be rev iewed at: https://www.fda .gov/m edia/637723/kunal nload. A fact sheet fo r Health Care pro viders is provided by the medical record specialist ([employer]) and can be reviewed at: https://www.fda .gov/m edia/256691/kunal nload Results must be interpreted wit hin [...] high-comple xity tests. [facility], CLIA Accreditation #[id number] and CAP Accreditation #[id number], verif ied the performance characteristics of this assay. Int ernal controls are us ed to monitor all sta ges of the test proces s. [facility] Cancer PaigeCOVID-19 (SARS-CoV-2)Yqztqmwyhhre-WP5569-04-18 16:04:24 Test Item Value Reference Range Interpretation Comments COVID19 Not Detected Not Detected (SARS-CoV-2) (test code = 59508-3) COVID19 SARS Inpatient Indication (test Admission code = 19474) Covid 19 Comment See Note The kacy S ARS-CoV-2 (test code = [place] [address]) use on the xenia s [employer] [...] sheet for patie nts provided by the medical record specialist ([employer]) can be rev iewed at: https://www.fda .gov/m edia/403309/kunal nload. A fact sheet fo r Health Care pro viders is provided by the medical record specialist ([employer]) and can be reviewed at: https://www.fda .gov/m edia/744864/kunal nload Results must be interpreted wit hin [...] high-comple xity tests. [facility], CLIA Accreditation #[id number] and CAP Accreditation #[id number], verif ied the performance characteristics of this assay. Int ernal controls are us ed to monitor all sta ges of the test proces s. [facility] CenterCOVID-19 (SARS-CoV-2)Krxedxqswyrq-LV0537-30-18 16:04:24 Test Item Value Reference Range Interpretation Comments COVID19 Not Detected Not Detected (SARS-CoV-2) (test code = 48643-7) COVID19 SARS Inpatient Indication (test Admission code = 01862) Covid 19 Comment See Note The kacy S ARS-CoV-2 (test code = [place] [address]) use on the xenia s [employer] [...] sheet for patie nts provided by the medical record specialist ([employer]) can be rev iewed at: https://www.fda .gov/m edia/801223/kunal nload. A fact sheet fo r Health Care pro viders is provided by the medical record specialist ([employer]) and can be reviewed at: https://www.fda .gov/m edia/762435/kunal nload Results must be interpreted wit hin [...] is assay has been authorized by yevgeniy [facility] for use only un areli Emergency Use Authorization ( EUA) in laboratories that have been CLIA-certified to perform moderate-comple xity and high-comple xity tests. [facility], CLIA Accreditation #[id number] and CAP Accreditation #[id number], verif ied the performance characteristics of this assay. Int ernal controls are us ed to monitor all sta ges of the test proces s. [facility] CenteraPTT20[facility]-04-[facility] 15:47:24 Test Item Value Reference Range Interpretation Comments aPTT (test code = 29.9 See_Comment [Automate d message] The 20545-2) system which ge nerated this result transmit lakhwinder reference range : 24.7 - 36.8 second(s). The reference range was not used to interpr et this result as paras l/abnormal. [facility] CenteraPTT20[facility] 15:47:24 Test Item Value Reference Range Interpretation Comments aPTT (test code = 29.9 See_Comment [Automate d message] The 66617-1) system which ge nerated this result transmit lakhwinder reference range : 24.7 - 36.8 second(s). The reference range was not used to interpr et this result as paras l/abnormal. [facility] Cent[facility]TT2022-04-18 15:47:24 Test Item Value Reference Range Interpretation Comments aPTT (test code = 29.9 See_Comment [Automate d message] The 89760-1) system which ge nerated this result transmit lakhwinder reference range : 24.7 - 36.8 second(s). The reference range was not used to interpr et this result as paras l/abnormal. [facility]2022-04-18 15:47:24 Test Item Value Reference Range Interpretation Comments aPTT (test code = 29.9 See_Comment [Automate d message] The [address] [place] [address]) system which ge nerated this result transmit lakhwinder reference range : 24.7 - 36.8 second(s). The reference range was not used to interpr et this result as paras l/abnormal. [facility]2022-04-18 15:47:24 Test Item Value Reference Range Interpretation Comments aPTT (test code = 29.9 See_Comment [Automate d message] The 91118-1) system which ge nerated this result transmit lakhwinder reference range : 24.7 - 36.8 second(s). The reference range was not used to interpr et this result as paras l/abnormal. [facility]2022-04-18 15:47:24 Test Item Value Reference Range Interpretation Comments aPTT (test code = 29.9 See_Comment [Automate d message] The [address] [place] [address]) system which ge nerated this result transmit lakhwinder reference range : 24.7 - 36.8 second(s). The reference range was not used to interpr et this result as paras l/abnormal. [facility]2022-04-18 15:47:24 Test Item Value Reference Range Interpretation Comments aPTT (test code = 29.9 See_Comment [Automate d message] The 42695-0) system which ge nerated this result transmit lakhwinder reference range : 24.7 - 36.8 second(s). The reference range was not used to interpr et this result as paras l/abnormal. [facility] with [id number] 15:47:23 Test Item Value Reference Range Interpretation Comments PT (test code = 5902-2) 13.5 See_Comment [Au tomated message] The system whic h generated this result transmitted ref erence range: 11.5 - 1 3.9 second(s). The reference range was not used to int erpret this result as normal/abnormal . INR (test code = 6301-6) 1.11 0.90-1.10 H Lab Interpretation (test Abnormal code = 89849-9) [facility] Time with [id number] 15:47:23 Test Item Value Reference Range Interpretation Comments PT (test code = 5902-2) 13.5 See_Comment [Au tomated message] The system [employer] generated this result transmitted ref erence range: 11.5 - 1 3.9 second(s). The reference range was not used to int erpret this result as normal/abnormal . INR (test code = 6301-6) 1.11 0.90-1.10 H Lab Interpretation (test Abnormal code = 70709-6) [facility] Time with [id number] 15:47:23 Test Item Value Reference Range Interpretation Comments PT (test code = 5902-2) 13.5 See_Comment [Au tomated message] The system [employer] generated this result transmitted ref erence range: 11.5 - 1 3.9 second(s). The reference range was not used to int erpret this result as normal/abnormal . INR (test code = 6301-6) 1.11 0.90-1.10 H Lab Interpretation (test Abnormal code = 73046-0) [facility] Time with [id number] 15:47:23 Test Item Value Reference Range Interpretation Comments PT (test code = 5902-2) 13.5 See_Comment [Au tomated message] The system [employer] generated this result transmitted ref erence range: 11.5 - 1 3.9 second(s). The reference range was not used to int erpret this result as normal/abnormal . INR (test code = 6301-6) 1.11 0.90-1.10 H Lab Interpretation (test Abnormal code = 60528-7) [facility] with [id number] 15:47:23 Test Item Value Reference Range Interpretation Comments PT (test code = 5902-2) 13.5 See_Comment [Au tomated message] The system [employer] generated this result transmitted ref erence range: 11.5 - 1 3.9 second(s). The reference range was not used to int erpret this result as normal/abnormal . INR (test code = 6301-6) 1.11 0.90-1.10 H Lab Interpretation (test Abnormal code = 08032-6) [facility] Time with [id number] 15:47:23 Test Item Value Reference Range Interpretation Comments PT (test code = 5902-2) 13.5 See_Comment [Au tomated message] The system [employer] generated this result transmitted ref erence range: 11.5 - 1 3.9 second(s). The reference range was not used to int erpret this result as normal/abnormal . INR (test code = 6301-6) 1.11 0.90-1.10 H Lab Interpretation (test Abnormal code = 87609-3) [facility] Time with [id number] 15:47:23 Test Item Value Reference Range Interpretation Comments PT (test code = 5902-2) 13.5 See_Comment [Au tomated message] The system [employer] generated this result transmitted ref erence range: 11.5 - 1 3.9 second(s). The reference range was not used to int erpret this result as normal/abnormal . INR (test code = 6301-6) 1.11 0.90-1.10 H Lab Interpretation (test Abnormal code = 25731-9) [facility]-19, Nasopharyngeal [id number] 01:19:11 Test Item Value Reference Range Interpretation Comments Adenovirus (test code = Not Detected Not Detected 3414) Coronavirus 229E (test Not Detected Not Detected code = 5349) Coronavirus HKU1 (test Detected Not Detected A code = 5350) Coronavirus NL63 (test Not Detected Not Detected code = 5351) Coronavirus OC43 (test Not Detected Not Detected code = 5352) COVID19 (SARS-CoV-2) Not Detected Not Detected (test code = 15183-9) Human Metapneumovirus Not Detected Not Detected (test [...] Detected Not Detected Parapertussis (test code = 30544) Bordetella pertussis Not Detected Not Detected (test [...] including SARS-CoV-2, from a single nasopharyngeal swab (BLIND CLEANER) specimen obtained from individuals suspected of respiratory [...] that may not be detected by an BLIND CLEANER specimen. Internal controls are used to monitor [...] Laboratory at [facility], CLIA Accreditation #[id number] and CAP Accreditation #[id number], verified the performance characteristics of this assay. Microbiology Laboratory at [facility] performs the assay using the Roll20 System. Lab Interpretation Abnormal (test code = 12223-4) [facility] COVID-19, Nasopharyngeal [id number] 01:19:11 Test Item Value Reference Range Interpretation [...] Not Detected Not Detected (test code = 41324-3) Human Metapneumovirus Not Detected Not Detected (test [...] Detected Not Detected Parapertussis (test code = 30531) Bordetella pertussis Not Detected Not Detected (test code = 4854) Chlamydiophila Not Detected Not Detected pneumoniae (test code = 5139) Mycoplasma pneumoniae Not Detected Not Detected (test code = 6203) PAIGE (test code = PAIGE) The EncentuateFire RP2.1 is a real-time, nested multiplexed polymerase chain reaction test designed to simultaneously identify nucleic acids from 22 different viruses and bacteria associated with respiratory tract infection, including SARS-CoV-2, from a single nasopharyngeal swab (BLIND CLEANER) specimen obtained from individuals suspected of respiratory [...] that may not be detected by an BLIND CLEANER specimen. Internal controls are used to monitor [...] Laboratory at [facility], CLIA Accreditation #[id number] and CAP Accreditation #[id number], verified the performance characteristics of this assay. Microbiology Laboratory at [facility] performs the assay using the Roll20 System. Lab Interpretation Abnormal (test code = 15924-4) [facility] COVID-19, Nasopharyngeal [id number] 01:19:11 Test Item Value Reference Range Interpretation Comments Adenovirus (test code = Not Detected Not Detected 1984) Coronavirus 229E (test Not Detected Not Detected code = 5349) Coronavirus HKU1 (test Detected Not Detected A code = 5350) Coronavirus NL63 (test Not Detected Not Detected code = 5351) Coronavirus OC43 (test Not Detected Not Detected code = 5352) COVID19 (SARS-CoV-2) Not Detected Not Detected (test code = 23433-4) Human Metapneumovirus Not Detected Not Detected (test [...] Detected Not Detected Parapertussis (test code = 64710) Bordetella pertussis Not Detected Not Detected (test [...] including SARS-CoV-2, from a single nasopharyngeal swab (BLIND CLEANER) specimen obtained from individuals suspected of respiratory [...] that may not be detected by an BLIND CLEANER specimen. Internal controls are used to monitor [...] Laboratory at [facility], CLIA Accreditation #[id number] and CAP Accreditation #[id number], verified the performance characteristics of this assay. Microbiology Laboratory at [facility] performs the assay using the Roll20 System. Lab Interpretation Abnormal (test code = 98474-4) [facility], Nasopharyngeal [id number] 01:19:11 Test Item Value Reference Range Interpretation Comments Adenovirus (test code = Not Detected Not Detected 9373) Coronavirus 229E (test Not Detected Not Detected code = 5349) Coronavirus HKU1 (test Detected Not Detected A code = 5350) Coronavirus NL63 (test Not Detected Not Detected code = 5351) Coronavirus OC43 (test Not Detected Not Detected code = 5352) COVID19 (SARS-CoV-2) Not Detected Not Detected (test code = 99818-5) Human Metapneumovirus Not Detected Not Detected (test [...] Detected Not Detected Parapertussis (test code = 16549) Bordetella pertussis Not Detected Not Detected (test [...] including SARS-CoV-2, from a single nasopharyngeal swab (BLIND CLEANER) specimen obtained from individuals suspected of respiratory [...] that may not be detected by an BLIND CLEANER specimen. Internal controls are used to monitor [...] Laboratory at [facility], CLIA Accreditation #[id number] and CAP Accreditation #[id number], verified the performance characteristics of this assay. Microbiology Laboratory at [facility] performs the assay using the Roll20 System. Lab Interpretation Abnormal (test code = 14515-0) [facility]-19, Nasopharyngeal [id number] 01:19:11 Test Item Value Reference Range Interpretation [...] Not Detected Not Detected (test code = 63401-9) Human Metapneumovirus Not Detected Not Detected (test [...] Detected Not Detected Parapertussis (test code = 63735) Bordetella pertussis Not Detected Not Detected (test [...] including SARS-CoV-2, from a single nasopharyngeal swab (BLIND CLEANER) specimen obtained from individuals suspected of respiratory [...] that may not be detected by an BLIND CLEANER specimen. Internal controls are used to monitor [...] Laboratory at [facility], CLIA Accreditation #[id number] and CAP Accreditation #[id number], verified the performance characteristics of this assay. Microbiology Laboratory at [facility] performs the assay using the Roll20 System. Lab Interpretation Abnormal (test code = 62163-4) [facility] [id number] 13:32:30 Test Item Value Reference Range Interpretation Comments POC Crea (test 0.6 mg/dL 0.6-1.3 Medications, code = 33558-3) especially h ydroxyurea or supplements, such as ascorbate, c an interfere with test results causing a falsely and significantly h igher result than exp ected. If a problem is suspected with a patient's resul t, a sample [facility]. Method descript ion: [...] Normal eGF R >= 60 code = 90629-2) mL/min/1.73 m2 The eGFR is calcula lakhwinder [...] Normal eG FR >= 60 code = 89085-3) mL/min/1.73 m2 The eGFR is calcula lakhwinder [...] Yes (test code = 6672) Performing Lab [facility] (test code = [facility] [address]) Clinical Lab, [address] [place] [address]; Whipped Topping Supervisor: Aletha Arciniega MD [facility] [id number] 13:32:30 Test Item Value Reference Range Interpretation Comments POC Crea (test 0.6 mg/dL 0.6-1.3 Medications, code = 49117-2) especially h ydroxyurea or supplements, such as [...] Normal eGF R >= 60 code = 32666-0) mL/min/1.73 m2 The eGFR is calcula lakhwinder [...] Normal eG FR >= 60 code = 91323-9) mL/min/1.73 m2 The eGFR is calcula lakhwinder [...] 6672) Performing Lab [facility] (test code = [facility] [address]) Clinical Lab, [address] [facility], [place], [place] [address]; Whipped Topping Supervisor: Aletha Arciniega MD [facility] [id number] 13:32:30 Test Item Value Reference Range Interpretation Comments POC Crea (test 0.6 mg/dL 0.6-1.3 Medications, code = 19120-7) especially h ydroxyurea or supplements, such as [...] Normal eGF R >= 60 code = 70940-1) mL/min/1.73 m2 The eGFR is calcula lakhwinder [...] Normal eG FR >= 60 code = 94480-0) mL/min/1.73 m2 The eGFR is calcula lakhwinder [...] Yes (test code = 6672) Performing Lab [facility] Main [facility] (test code = [facility] [address]) Clinical Lab, [address] [facility], [place], [place] [address]; Whipped Topping Supervisor: Aletha Arciniega MD [facility] [id number] 13:32:30 Test Item Value Reference Range Interpretation Comments POC Crea (test 0.6 mg/dL 0.6-1.3 Medications, code = 68685-7) especially h ydroxyurea or supplements, such as [...] Normal eGF R >= 60 code = 69018-4) mL/min/1.73 m2 The eGFR is calcula lakhwinder using the CKD-E PI equation. The e GFR declines with a ge. eGFR <60 mL/min /1.73 m2 is considere d as "decreased" Thi s equation should only be used for pat ients 18 and older. According to [facility] National Kidney Foundation's Ki dney Disease Outcome [...] Normal eG FR >= 60 code = 41378-0) mL/min/1.73 m2 The eGFR is calcula lakhwinder [...] Yes (test code = 6672) Performing Lab [facility] (test code = [facility] [address]) Clinical Lab, [address] [place] [address]; Whipped Topping Supervisor: Aletha Arciniega MD [facility] MD [facility] Notes Date/Time Note Provider Source 2020-04-28 03:18:00-00:00 [facility]PORT REPORT#:[id number] REPORT STATUS: Signed DATE:04/28/20 TIME: 317 PATIENT: KARISHMA IYER IV UNIT #: [id number] ROOM/BED: AGE: 64 SEX: M PCP PHYS: No Primary or Family Ph ysician SERVICE AUTHOR: Lang Stewart MD * ALL edits or amendments must be made on the el ectronic/computer document * HPI-Eye Problem General Initial Greet [...] PO TID #30 TAB Prov: 10/05/16 DC: 04/28/20 0247 Patient stopped taking traMADol (ULTRAM) 50 MG [...] treatment of corneal abrasion. Time of Re-Eval 032 Re-Eval Status Improved ED Course Medication(s) Ordered Medication(s) Ordered: Diagnostic Agents Sig/Rome Start time Last Medication Dose Route Stop Time Status Admin Fluorescein Sodium 1 MG ASDIR 04/28 315 DC EACH EYE 04/28 316 0313 Eye, Ear, Nose And Throat (Een Sig/Rome Start time Last Medication Dose Route Stop Time Status Admin Erythromycin 1 APPLIC X1ED STA 04/28 0326 DC RIGHT EYE 04/28 0327 Tetracaine HCl 1 DROP X1ED STA 04/28 0244 DC RIGHT EYE 04/28 0245 0313 Patient Discharge Departure Vital Signs/Condition Vital Signs [...] 64 04/28 346 Resp 18 04/28 346 All vital signs available at the time of this en try have been reviewed. Condition Stable Clinical Impression Clinical Impression Primary Impression: Right corneal abrasion Disposition Decision Discharge )( Discharged to Home Yes )( Time 0330 )( Date 04/28/20 Electronically Signed by Lang Stewart MD 05/01/20 at 0521 RPT #:[id number] END OF REPORT 2019-08-12 20:15:00-00:00 [facility] EM[facility]GENCY PROVIDER REPORT REPORT#:[id number] REPORT STATUS: Signed DATE:08/12/19 TIME: 2014 PATIENT: KARISHMA IYER IV UNIT #: [id number] ROOM/BED: AGE: 63 SEX: M PCP PHYS: No Primary or Family Ph ysician SERVICE DT: AUTHOR: Reji Devries * ALL edits or amendments must be made on the [employer]/computer document * HPI-Rash/Abscess/Cellulitis General Confirmed Patient Yes [...] by me, Pulse oximetr y normal Time 2018 Patient Discharge Departure Vital Signs/Condition Vital Signs [...] Devries on 0 08/12/19 at 2019 RPT #:[id number] END OF REPORT 2019-08-12 20:15:00-00:00 [facility] ([facility]) EMERGENCY PROVIDER REPORT REPORT#:[id number] REPORT STATUS: Signed DATE:08/12/19 TIME: 2014 PATIENT: KARISHMA IYER IV UNIT #: [id number] ROOM/BED: AGE: 63 SEX: M PCP PHYS: No Primary or Family Ph ysician SERVICE AUTHOR: Reji Devries * ALL edits or amendments must be made on the [employer]/computer document * Reji Devries 08/12/19 2015: HPI-Rash/Abscess/Cellulitis [...] 08/12 2008 Pulse 74 08/12 2008 Resp 08/12 Last Documented: Result Date Time Pulse Ox [...] Saw Pt Alone I have reviewed the PA/MANUAL QA TESTER's note and plan of raffaele ayon. I was available for consultation as needed at al l times during the patient's visit in the emergency department. I agree with the clinical impression , plan and disposition. Electronically Signed by Reji Devries on 0 08/12/19 at 2020 at 2130 RPT #:[id number] END OF REPORT 2018-12-12 17:44:00-00:00 [facility] ([facility]) EMERGENCY PROVIDER REPORT REPORT#:[id number] REPORT STATUS: Signed DATE:12/12/18 TIME: 1744 PATIENT: KARISHMA IYER IV UNIT #: [id number] ROOM/BED: AGE: 63 SEX: M PCP PHYS: No Primary or Family Ph ysician SERVICE AUTHOR: Génesis Boss MANUAL QA TESTER * ALL edits or amendments must be made on the [employer] document * HPI-Ear Pain/Problem/FB General Confirmed Patient [...] 1704 Temp 36.8 12/12 1704 Pulse 68 06/15 1704 Resp 18 12/13 1703 Last Documented: Result Date Time Pulse Ox 98 12/12 170 B/P 100/64 12/12 1704 B/P Mean 76 12/12 170 O2 Delivery Room air 12/13 1703 Temp 36.8 12/12 170 Pulse 68 12/12 170 Resp 18 12/13 1703 Review of Vital Signs Reviewed Focused PE [...] Documented: Result Date Time Pulse Ox 98 12/13 1703 B/P 100/64 12/12 1704 B/P Mean 76 12/12 170 O2 Delivery Room air 12/13 1703 Temp 36.8 12/12 170 Pulse 68 12/12 170 Resp 18 12/13 1703 Last Documented: Result Date Time Pulse Ox 98 12/12 170 B/P 100/64 12/12 1704 B/P Mean 76 12/12 170 O2 Delivery Room air 12/13 1703 Temp 36.8 12/12 170 Pulse 68 12/12 170 Resp 18 12/13 1703 All vital signs available at the time of this en try have been reviewed. Condition Stable Clinical Impression Clinical Impression Primary Impression: Excessive cerumen in both ea r canals Disposition Decision Other )( Time 173 )( Date 12/12/18 LORIE-screened discharged Yes Discharge/Care Plan Counseled Regarding use of debrox Electronically Signed by Génesis Boss NP o n 12/12/18 at 1826 RPT #:[id number] END OF REPORT 2018-12-12 17:44:00-00:00 [facility] ([facility] EMERGENCY PROVIDER REPORT REPORT#:[id number] REPORT STATUS: Signed DATE:12/12/18 TIME: 1743 PATIENT: KARISHMA IYER IV UNIT #: [id number] ROOM/BED: AGE: 63 SEX: M PCP PHYS: No Primary or Family Ph ysician SERVICE AUTHOR: Génesis Boss MANUAL QA TESTER * ALL edits or amendments must be made on the [employer]/computer document * Génesis Boss 12/12/181743: HPI-Ear Pain/Problem/FB General Confirmed Patient Yes PCP [...] Room air 12/12 170 Temp 36.8 12/12 170 Pulse 68 12/12 170 Resp 18 12/13 1703 Last Documented: Result Date Time Pulse Ox 98 12/12 170 B/P 100/64 12/12 170 B/P Mean 76 12/12 170 O2 Delivery Room air 12/12 170 Temp 36.8 12/12 170 Pulse 68 12/12 170 Resp 18 12/13 1703 Review of Vital Signs Reviewed Focused PE [...] Documented: Result Date Time Pulse Ox 98 12/13 1703 B/P 100/64 12/12 1704 B/P Mean 76 12/12 1704 O2 Delivery Room air 12/12 170 Temp 36.8 12/12 1704 Pulse 68 12/12 170 Resp 18 12/13 1703 Last Documented: Result Date Time Pulse Ox 98 12/13 1703 B/P 100/64 12/13 1703 B/P Mean 76 12/12 170 O2 Delivery Room air 12/12 170 Temp 36.8 12/12 170 Pulse 68 12/12 170 Resp 18 12/12 170 All vital signs available at the time of this en try have been reviewed. Condition Stable Clinical Impression Clinical Impression Primary Impression: Excessive cerumen in both ea r canals Disposition Decision Other )( Time 1737 )( Date 12/12/18 LORIE-screened discharged Yes Discharge/Care Plan Counseled Regarding use of debrox Johanna Foy 12/12/18 1839: HPI-Ear Pain/Problem/FB General Initial Greet Date/Time 12/12/18 1710 Physical Exam Vital Signs Vital Signs Patient Discharge Departure Vital Signs/Condition Vital Signs Supervising Physician Note MidLv Saw Pt Alone I have reviewed the PA/MANUAL QA TESTER's note and plan of car e. I was available for consultation as needed at al l times during the patient's visit in the emergency department. I agree with the clinical impression , plan and disposition. Electronically Signed by Génesis Boss NP o n 12/12/18 at 1826 Electronically Signed by Johanna Foy MD on 0 12/12/18 at 1839 RPT #:[id number] END OF REPORT 2018-11-14 05:01:00-00:00 [facility] ([facility]) EMERGENCY PROVIDER REPORT REPORT#:[id number] REPORT STATUS: Signed DATE:11/14/18 TIME: 0501 PATIENT: KARISHMA IYER IV UNIT #: [id number] ROOM/BED: AGE: 62 SEX: M PCP PHYS: No Primary or Family Ph ysician SERVICE AUTHOR: Tre Cook MD * ALL edits or amendments must be made on the [employer] document * HPI-Eye Problem General Confirmed Patient [...] of this section were scribed by Anuja Qaurles on 11/14/18 at 0507 Physical Exam Vital Signs Vital Signs First Documented: Result Date Time Pulse Ox 97 11/14 0449 B/P 96/61 11/14 0449 B/P Mean 72 11/14 0449 O2 Delivery Room air 11/14 0449 Temp 36.5 11/14 0449 Pulse 69 11/14 0449 Resp 18 11/14 0449 Last Documented: Result Date Time Pulse Ox 100 11/14 0550 B/P 117/79 11/14 0550 B/P Mean 91 11/14 0550 O2 Delivery Room air 11/14 0550 Temp 36.6 11/14 0550 Pulse 70 / 0550 Resp 18 11/14 0550 Review of [...] See Dose X1ED STA 11/14 0513 DC 18 Insts (1) EACH EYE 11/14 0514 0516 [...] 96/61 11/14 0449 B/P Mean 72 11/14 0449 O2 Delivery Room air 11/14 0449 Temp 36.5 11/14 0449 Pulse 69 11/14 0449 Resp 18 11/14 0449 Last Documented: Result Date Time Pulse Ox 100 11/14 0550 B/P 117/79 11/14 0550 B/P Mean 91 / 0550 O2 Delivery Room air 11/14 0550 Temp 36.6 11/14 0550 Pulse 70 05/ 0550 Resp 18 [...] symptoms should prompt an immediate return to [facility] or the closest emergency department or a [...] [Dr. Cook]. Signed By: Anuja Quarles, 11/14/18 050 Provider Scribed Statement I personally performed the s ervices described in this documentation and reviewed the documentation that was dictated to the scrib e(s) in my presence, and it accurately records my words and actions. Tre Bartlett, 11/14/18 Portions of this section were scribed by Anuja Quarles on 11/14/18 at 0553 at 0703 RPT #:[id number] END OF REPORT
[2022-11-24] MEDS ORDERED: ONDANSETRON 4 MG/2 ML VIAL ONE (15:59)
[2022-11-24] MEDS ORDERED: FAMOTIDINE 20 MG/2 ML VIAL IV ONE (15:59)
--- NOTE | 2022-11-24 16:33 | RAD REPORT ---
EXAM DESCRIPTION: RAD - Chest Single View - 11/24/2022 4:22 pm CLINICAL HISTORY: CHEST PAIN COMPARISON: Chest Single View dated 11/14/2022; Chest Single View dated 11/06/2022; Chest Single View dated 10/06/2022; Chest Single View dated 08/29/2022; Chest For Pe Angio dated 11/14/2022 FINDINGS: Lines: None. Lungs: Right apical scarring is similar. Emphysema. Pleural: No significant pleural effusions or pneumothorax. Cardiac: The heart size is within normal limits. Mediastinum: Within normal limits. Bones: No acute fractures. Other: None IMPRESSION: Emphysema and chronic changes without superimposed acute process.
[2022-11-24 16:44] LABS: Albumin 2.8 g/dL (3.4-5.0); Bilirubin Direct 0.2 mg/dL (0-0.2); Bilirubin Indirect, Calculated 0.7 mg/dL (0.2-0.8); Bilirubin Total 0.9 mg/dL (0.2-1.0); Magnesium 1.8 mg/dL (1.6-2.4); Potassium 3.5 mEq/L (3.5-5.1); Protein, Total 6.3 g/dL (6.4-8.2); Troponin High Sensitivity 4.2 pg/mL (<58.9)
[2022-11-24] MEDS ORDERED: FENTANYL CITR 100 MCG/2 ML ONE (16:58)
[2022-11-24] MEDS ORDERED: IPRATROPIUM BROM 0.5MG/2.5ML ONE (16:58)
[2022-11-24] MEDS ORDERED: ALBUTEROL 2.5 MG/3 ML NEB SOL ONE (16:58)
[2022-11-24] MEDS ORDERED: NA CHLORIDE 0.9% 500 ML ONE (16:58)
[2022-11-24] MEDS ORDERED: METHYLPREDNISOLONE 40 MG INJ ONE (16:58)
[2022-11-24 19:34] LABS: Absolute Lymphocytes (CBC) 0.9 K/uL (0.7-4.9); Hematocrit 38.9 % (39.6-49.0); Lymphocytes % 7.9 % (15.3-44.8); MCV 100.2 fL (80-100); MPV 7.7 fL (7.6-11.3); RBC Red Blood Cell Count 3.88 M/uL (4.33-5.43)
[2022-11-24 20:14] LABS: Anisocytosis 1+; Blood Morphology Comment NOTED (NOT SEEN); Platelet Estimate ADEQ; White Blood Cell Scan OK (OK)
[2022-11-24] MEDS ORDERED: NA CHLORIDE 0.9% 1,000 ML ONE (20:52)
[2022-11-24] MEDS ORDERED: KETOROLAC 30 MG/ML INJ ONE (20:52)
[2022-11-24 20:54] LABS: Protime INR 1.33
--- NOTE | 2022-11-24 22:09 | RAD REPORT ---
EXAM DESCRIPTION: CT - Chest For Pe Angio - 11/24/2022 9:40 pm CLINICAL HISTORY: CHEST PAIN COMPARISON: Chest For Pe Angio dated 11/14/2022; Thorax W/ Con dated 10/07/2022; Chest For Pe Angio da lakhwinder 08/29/2022; Chest For Pe Angio dated 04/24/2022; Chest Single View dated 11/24/2022 TECHNIQUE: Dynamically enhanced axial 3 mm thick images of the chest were obtained during administra tion of <100> mL Isovue 370 IV contrast. Coronal and oblique reconstruction images were generated and reviewed. Exam utilizes a protocol for optimal evaluation of pulmonary arterial tree. Maximum intensity projections 3D imaging was utilized All CT scans are performed using dose optimization technique as appropriate and may include automated exposure control or mA/KV adjustment according to patient size. FINDINGS: Chest Wall: No suspicious thyroid nodules or pathologic lymphadenopathy. Lungs: Advanced emphysema. Right apical scarring. No acute process identified. Scarring also is prese nt in the lingula. Pleura: No significant effusions or pneumothorax. Mediastinum/darcy: No pathologic lymphadenopathy. Circumferential thickened esophagus which may repres ent esophagitis. . Pulmonary arteries/Aorta: No filling defect identified. No aortic aneurysm. Heart: No significant pericardial effusion. Normal heart size. Multi-vessel coronary disease. Upper abdomen: No acute abnormality. Bones: No acute abnormality. IMPRESSION: Negative for pulmonary embolism. No acute findings within the chest. Advanced emphysema. Incidental findings as noted above.
--- NOTE | 2022-11-24 22:38 | EDPHYS ---
Physician Documentation [facility] Name: Chato Moreno IV Age: 67 yrs Sex: Male : 1955 Arrival Date: 11/24/2022 Time: 15:16 Bed 18 Private MD: ED Physician Adriano Isaac HPI: 11/24 16:00 This 67 yrs old Male presents to ER via EMS with complaints of General Weakness, Chest cp Pain. 16:00 The patient or guardian reports chest pain that is located primarily in the anterior cp chest wall. 16:00 Onset: 1 week(s) ago. cp 16:00 Associated signs and symptoms: Pertinent positives: pain and difficulty swallowing, cp Pertinent negatives: abdominal pain, diaphoresis, lower extremity pain, lower extremity swelling. 16:00 Duration: The patient or guardian reports a single episode, that is still ongoing. cp 16:00 Severity of pain: in the emergency department the pain is unchanged despite home cp interventions. Historical: - Allergies: 15:46 No Known Allergies; kc6 - PMHx: 15:46 Atrial fibrillation; COPD; Emphysema; Lung Cancer; Pneumonia; kc6 - Immunization history:: Client reports receiving the 2nd dose of the Covid vaccine, Flu vaccine status is unknown. - Social history:: Smoking status: Patient denies any tobacco usage or history of. ROS: 16:05 Constitutional: Positive for poor PO intake, Negative for body aches, chills, fever. cp 16:05 Eyes: Negative for injury, pain, redness, and discharge. cp 16:05 ENT: Positive for difficulty swallowing, Negative for drainage from ear(s), ear pain, difficulty handling secretions. 16:05 Cardiovascular: Positive for chest pain, Negative for edema, palpitations. 16:05 Respiratory: Positive for shortness of breath. 16:05 Abdomen/GI: Positive for anorexia, Negative for abdominal pain, vomiting, diarrhea, constipation. 16:05 Skin: Negative for cellulitis, rash. 16:05 Neuro: Negative for altered mental status, dizziness, headache, weakness. 16:05 All other systems are negative. Exam: 15:02 ECG was reviewed by the Attending Physician. cp 16:10 Constitutional: The patient appears in no acute distress, alert, awake, cp non-diaphoretic, non-toxic, well developed, frail. 16:10 Head/Face: Normocephalic, atraumatic. cp 16:10 Eyes: Periorbital structures: appear normal, Conjunctiva: normal, no exudate, no cp injection, Sclera: no appreciated abnormality, Lids and lashes: appear normal, bilaterally. 16:10 ENT: External ear(s): are unremarkable, Nose: is normal, Mouth: Lips: moist, Oral cp mucosa: pink and intact, moist, Posterior pharynx: is normal, airway is patent, no erythema, no exudate. 16:10 Neck: ROM/movement: is normal, is supple, without pain, no range of motions limitations, no meningismus, no nuchal rigidity. 16:10 Chest/axilla: Inspection: normal, Palpation: crepitus, is not appreciated, tenderness, that is moderate, of the anterior aspect of right upper chest, anterior aspect of left upper chest and mid-sternal area. 16:10 Cardiovascular: Rate: normal, Rhythm: regular, Pulses: Pulses are 2+ in right radial artery and left radial artery. Edema: is not appreciated, JVD: is not appreciated. 16:10 Respiratory: the patient does not display signs of respiratory distress, Respirations: labored breathing, is not present, shallow respirations, that is mild, Breath sounds: decreased breath sounds, that are moderate, throughout, stridor, is not appreciated, wheezing: is not appreciated. 16:10 Abdomen/GI: Inspection: abdomen appears normal, Bowel sounds: active, all quadrants, Palpation: soft, in all quadrants, nontender, in all quadrants. 16:10 Back: CVA tenderness, is absent, vertebral tenderness, is not appreciated. 16:10 Skin: cellulitis, is not appreciated, no rash present. 16:10 Neuro: Orientation: to person, place \T\ time. Mentation: is normal, Motor: moves all fours, general weakness with no focal deficits, Sensation: no obvious gross deficits. Vital Signs: 15:44 BP 95 / 56; Pulse 88; Resp 14 S; Temp 97.3(O); Pulse Ox 100% on R/A; Weight 45.36 kg kc6 (R); Height 5 ft. 7 in. (R); 17:24 BP 116 / 61; Pulse 72; Resp 15 S; Pulse Ox 100% on 3 lpm NC; Pain 3/10; kc6 18:16 BP 94 / 66; Pulse 69; Resp 18 S; Pulse Ox 100% on 3 lpm NC; kc6 19:50 BP 103 / 62; Pulse 64; Resp 14 S; Pulse Ox 100% on 3 lpm NC; lg3 20:55 BP 101 / 62; Pulse 67; Resp 15 S; Pulse Ox 100% on 3 lpm NC; lg3 22:14 BP 106 / 67; Pulse 68; Resp 15 S; Pulse Ox 100% on 3 lpm NC; lg3 15:44 Body Mass Index 15.66 (45.36 kg, 170.18 cm) kc6 17:24 Pain Scale: Adult kc6 MDM: 15:45 Patient medically screened. [facility] 22:35 Data reviewed: vital signs, nurses notes, lab test result(s), EKG, radiologic studies, cp CT scan, plain films. 22:35 Differential diagnosis: abnormal EKG, acute myocardial infarction, esophagitis, cp gastritis, pericarditis, pleurisy, pneumonia, pneumothorax, pulmonary embolus, stable angina, thoracic aortic disection, unstable angina. Consideration of Admission/Observation Escalation of care including admission/observation considered. I considered the following discharge prescriptions or medication management in the emergency department Medications were administered in the Emergency Department. See MAR. Care significantly affected by the following chronic conditions: Chronic Obstructive Pulmonary Disease, Cancer. 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 Response to treatment: the patient's symptoms have markedly improved after treatment, and as a result, I will discharge patient. 11/24 15:49 Order name: Basic Metabolic Panel; Complete Time: 16:45 cp 11/24 19:32 Interpretation: Normal except: CO2 33; CRE 0.53; CA 8.4. cp 11/24 15:49 Order name: CBC with Diff; Complete Time: 20:22 cp 11/24 20:00 Interpretation: Normal except: RBC 3.88; HGB 13.0; HCT 38.9; MCV 100.2; RDW 21.2; ADRIANNA% cp 88.1; LYM% 7.9; NEUT A 9.5. 11/24 15:49 Order name: LFT's; Complete Time: 16:45 cp 11/24 19:32 Interpretation: Normal except: ALT 13; TP 6.3; ALB 2.8; A/G 0.8. cp 11/24 15:49 Order name: Magnesium; Complete Time: 16:45 cp 11/24 15:49 Order name: NT PRO-BNP; Complete Time: 16:45 cp 11/24 15:49 Order name: PT-INR; Complete Time: 21:09 cp 11/24 15:49 Order name: Troponin HS; Complete Time: 16:45 cp 11/24 22:05 Interpretation: Reviewed. 11/24 17:13 Order name: D-Dimer; Complete Time: 21:09 EDMS 11/24 21:09 Interpretation: Reviewed. 11/24 19:39 Order name: CBC Smear Scan; Complete Time: 20:22 EDMS 11/24 15:49 Order name: XRAY Chest (1 view); Complete Time: 16:45 cp 11/24 19:49 Order name: CT Chest For PE Angio; Complete Time: 22:24 cp 11/24 15:49 Order name: EKG; Complete Time: 15:49 cp 11/24 15:49 Order name: Cardiac monitoring; Complete Time: 15:50 cp 11/24 15:49 Order name: EKG - Nurse/Tech; Complete Time: 16:14 cp 11/24 15:49 Order name: IV Saline Lock; Complete Time: 16:14 cp 11/24 15:49 Order name: Labs collected and sent; Complete Time: 16:14 cp 11/24 15:49 Order name: O2 Per Protocol; Complete Time: 15:49 cp 11/24 15:49 Order name: O2 Sat Monitoring; Complete Time: 15:49 cp 11/24 18:41 Order name: Labs - recollect needed: recollect blue and laven; Complete Time: 19:55 eb 11/24 22:25 Order name: PO challenge; Complete Time: 22:26 cp EC:02 Rate is 72 beats/min. Rhythm is regular. VA interval is normal. QRS interval is normal. cp QT interval is normal. T waves are Inverted in lead aVR. Interpreted by me. Reviewed by me. Administered Medications: 16:14 Drug: Ondansetron IVP 4 mg Route: IVP; Site: right upper arm; kc6 18:19 Follow up: Response: No adverse reaction; Nausea is decreased kc6 16:14 Drug: Famotidine IVP 20 mg Route: IVP; Site: right upper arm; kc6 18:19 Follow up: Response: No adverse reaction kc6 16:59 Drug: NS 0.9% IV 500 ml Route: IV; Rate: bolus; Site: right upper arm; kc6 18:19 Follow up: Response: No adverse reaction; IV Status: Completed infusion; IV Intake: kc6 500ml 16:59 Drug: fentaNYL (PF) IVP 25 mcg Route: IVP; Site: right upper arm; kc6 18:19 Follow up: Response: No adverse reaction; Pain is decreased; RASS: Alert and Calm (0) kc6 16:59 Drug: MethylPrednisoLONE IVP 80 mg Route: IVP; Site: right upper arm; kc6 18:19 Follow up: Response: No adverse reaction kc6 16:59 Drug: Albuterol Inhalation 2.5 mg Route: Inhalation; kc6 18:19 Follow up: Response: No adverse reaction kc6 16:59 Drug: Ipratropium Inhalation Aerosol 0.5 mg Route: Inhalation; kc6 18:19 Follow up: Response: No adverse reaction kc6 20:51 Drug: NS 0.9% IV 500 ml Route: IV; Rate: 100 ml/hr; Site: right upper arm; lg3 22:44 Follow up: IV Status: Completed infusion pf1 20:52 Drug: Ketorolac IVP 15 mg Route: IVP; Site: right upper arm; lg3 22:44 Follow up: Response: No adverse reaction; Pain is decreased pf1 20:52 Drug: NS 0.9% IV 500 ml Route: IV; Rate: bolus; Site: right upper arm; lg3 22:44 Follow up: IV Status: Completed infusion; IV Intake: 500ml pf1 22:44 Drug: GI Cocktail without - (Maalox PO Suspension 30 ml, Lidocaine Mucous pf1 Membrane Liquid 2 % 15 ml) Route: PO; 22:44 Follow up: Response: No adverse reaction pf1 Disposition Summary: 11/24/22 22:37 Discharge Ordered Location: Home cp Problem: new cp Symptoms: have improved cp Condition: Stable cp Diagnosis - Chest pain, unspecified cp - Weakness cp Followup: cp - With: Jesús Escobedo MD - When: 2 - 3 days - Reason: esophagitis Discharge Instructions: - Discharge Summary Sheet cp - Nonspecific Chest Pain, Adult cp - Esophagitis cp - Weakness cp Forms: - Medication Reconciliation Form cp - Thank You Letter cp - Antibiotic Education cp - Prescription Opioid Use cp Prescriptions: - quetiapine 25 mg Oral tablet - take 3 tablet by ORAL route once; 90 tablet; Refills: 0, Product Selection cp Permitted - Carafate 1 gram Oral Tablet - take 1 tablet by ORAL route 4 times per day take on an empty stomach, beginning cp on waking and last dose at bedtime. dissolve in 4 oz warm water prior to ingestion; 100 tablet; Refills: 0, Product Selection Permitted - Protonix 40 mg Oral tablet,delayed release (DR/EC) - take 1 tablet by ORAL route every 12 hours; 60 tablet; Refills: 0, Product cp Selection Permitted Signatures: Dispatcher [employer] EDMS Adriano Isaac MD MD cha Attema, Lee, FACILITIES MAINTENANCE TECHNICIAN-C FACILITIES MAINTENANCE TECHNICIAN-Cla1 Adriano Sheehan PA PA cp Stella Krishnan Lacie, RN RN lg3 Geeta Lacey RN RN kc6 Sabine Brooks RN RN pf1 Corrections: (The following items were deleted from the chart) 17:13 16:59 D-DIMER+[id number].BRZ ordered. EDAR EDMS
--- NOTE | 2022-11-24 22:38 | ER ---
Nurse's Notes [facility] Name: Chato Moreno IV Age: 67 yrs Sex: Male : 1955 Arrival Date: 11/24/2022 Time: 15:16 Bed 18 Private MD: Diagnosis: Chest pain, unspecified;Weakness Presentation: 11/24 15:44 Chief complaint: EMS states: pt has not been eating or drinking x1 week due to it kc6 hurting when swallowing. pt reports generalized weakness and dizziness. pt wears 5L via NC at home. Coronavirus screen: Vaccine status: Patient reports receiving the 2nd dose of the covid vaccine. At this time, the client does not indicate any symptoms associated with coronavirus-19. Ebola Screen: No symptoms or risks identified at this time. Initial Sepsis Screen: Does the patient meet any 2 criteria? No. Patient's initial sepsis screen is negative. Does the patient have a suspected source of infection? No. Patient's initial sepsis screen is negative. Risk Assessment: Do you want to hurt yourself or someone else? Patient reports no desire to harm self or others. Onset of symptoms was November 24, 2022. 15:44 Method Of Arrival: [facility] kc6 15:44 Acuity: STEWART 3 kc6 Triage Assessment: 15:46 General: Appears in no apparent distress. comfortable, ill, Behavior is calm, kc6 cooperative, appropriate for age. Pain: Complains of pain in chest. EENT: No signs and/or symptoms were reported regarding the EENT system. Neuro: Swift Agitation-Sedation Scale (RASS): 0 - Alert and Calm Level of Consciousness is awake, alert, obeys commands, Oriented to person, place, time, situation, Appropriate for age. Cardiovascular: Capillary refill < 3 seconds. Respiratory: Airway is patent Trachea midline Respiratory effort is even, unlabored, Respiratory pattern is regular, symmetrical, Breath sounds with crackles. GI: No signs and/or symptoms were reported involving the gastrointestinal system. : No signs and/or symptoms were reported regarding the genitourinary system. Derm: No signs and/or symptoms reported regarding the dermatologic system. Skin is intact, Skin is pink, warm \T\ dry. Musculoskeletal: No signs and/or symptoms reported regarding the musculoskeletal system. Circulation, motion, and sensation intact. Capillary refill < 3 seconds, Range of motion: intact in all extremities. Historical: - Allergies: 15:46 No Known Allergies; kc6 - PMHx: 15:46 Atrial fibrillation; COPD; Emphysema; Lung Cancer; Pneumonia; kc6 - Immunization history:: Client reports receiving the 2nd dose of the Covid vaccine, Flu vaccine status is unknown. - Social history:: Smoking status: Patient denies any tobacco usage or history of. Screenin:44 [facility] ED Fall Risk Assessment (Adult) History of falling in the last 3 months, kc6 including since admission No falls in past 3 months (0 pts) Confusion or Disorientation No (0 pts) Intoxicated or Sedated No (0 pts) Impaired Gait No (0 pts) Mobility Assist Device Used No (0 pt) Altered Elimination No (0 pt) Score/Fall Risk Level 0 - 2 = Low Risk Oriented to surroundings, Maintained a safe environment, Educated pt \T\ family on fall prevention, incl call for assistance when getting out of bed, Assessed \T\ reinforced patient's understanding of fall precautions, Hourly rounding (assess needs \T\ fall precautionary measures) done. Abuse screen: Denies threats or abuse. Denies injuries from another. Nutritional screening: No deficits noted. Tuberculosis screening: No symptoms or risk factors identified. Assessment: 15:44 Reassessment: please see triage assessment. kc 16:44 Reassessment: Patient appears in no apparent distress at this time. No changes from 6 previously documented assessment. Patient and/or family updated on plan of care and expected duration. Pain level reassessed. Patient is alert, oriented x 3, equal unlabored respirations, skin warm/dry/pink. 17:44 Reassessment: Patient appears in no apparent distress at this time. No changes from kc6 previously documented assessment. Patient and/or family updated on plan of care and expected duration. Pain level reassessed. Patient is alert, oriented x 3, equal unlabored respirations, skin warm/dry/pink. 18:44 Reassessment: Patient appears in no apparent distress at this time. No changes from kc6 previously documented assessment. Patient and/or family updated on plan of care and expected duration. Pain level reassessed. Patient is alert, oriented x 3, equal unlabored respirations, skin warm/dry/pink. 18:50 Reassessment: phlebotomy contacted for assistance with recollect labs. stated they will kc6 be here in 10min. 19:50 General: Appears in no apparent distress. comfortable, Behavior is calm, cooperative. lg3 Pain: Complains of pain in generalized body pains. Neuro: No deficits noted. Swift Agitation-Sedation Scale (RASS): 0 - Alert and Calm Level of Consciousness is awake, alert, obeys commands, Oriented to person, place, time, situation. Cardiovascular: Reports chest pain, Capillary refill < 3 seconds Clubbing of nail beds is absent JVD is absent Patient's skin is warm and dry. Respiratory: No deficits noted. Airway is patent Respiratory effort is even, unlabored, Respiratory pattern is regular, symmetrical. GI: No deficits noted. Abdomen is flat, non-distended. : No deficits noted. No signs and/or symptoms were reported regarding the genitourinary system. EENT: No deficits noted. No signs and/or symptoms were reported regarding the EENT system. Derm: No deficits noted. No signs and/or symptoms reported regarding the dermatologic system. Skin is intact, is thin, Skin is dry, Skin is normal, Skin temperature is warm. Musculoskeletal: Circulation, motion, and sensation intact. Range of motion: intact in all extremities, Reports generalized weakness. 20:55 Reassessment: Patient appears in no apparent distress at this time. No changes from lg3 previously documented assessment. Patient and/or family updated on plan of care and expected duration. Pain level reassessed. Patient is alert, oriented x 3, equal unlabored respirations, skin warm/dry/pink. 22:14 Reassessment: Patient appears in no apparent distress at this time. No changes from lg3 previously documented assessment. Patient and/or family updated on plan of care and expected duration. Pain level reassessed. Patient is alert, oriented x 3, equal unlabored respirations, skin warm/dry/pink. Vital Signs: 15:44 BP 95 / 56; Pulse 88; Resp 14 S; Temp 97.3(O); Pulse Ox 100% on R/A; Weight 45.36 kg kc6 (R); Height 5 ft. 7 in. (R); 17:24 BP 116 / 61; Pulse 72; Resp 15 S; Pulse Ox 100% on 3 lpm NC; Pain 3/10; kc6 18:16 BP 94 / 66; Pulse 69; Resp 18 S; Pulse Ox 100% on 3 lpm NC; kc6 19:50 BP 103 / 62; Pulse 64; Resp 14 S; Pulse Ox 100% on 3 lpm NC; lg3 20:55 BP 101 / 62; Pulse 67; Resp 15 S; Pulse Ox 100% on 3 lpm NC; lg3 22:14 BP 106 / 67; Pulse 68; Resp 15 S; Pulse Ox 100% on 3 lpm NC; lg3 15:44 Body Mass Index 15.66 (45.36 kg, 170.18 cm) kc6 17:24 Pain Scale: Adult kc6 ED Course: 15:35 Patient arrived in ED. eb 15:43 Adriano Sheehan PA is PHCP. cp 15:43 Adriano Isaac MD is Attending Physician. cp 15:44 Geeta Lacey, ELLA is Primary Nurse. kc6 15:44 Patient has correct armband on for positive identification. Placed in gown. Bed in low kc6 position. Call light in reach. Side rails up X2. 15:46 Triage completed. kc6 15:46 Arm band placed on. kc6 16:14 Missed attempt(s): 20 gauge in right antecubital area. Inserted saline lock: 20 gauge kc6 in right upper arm, using aseptic technique. Blood collected. 16:24 XRAY Chest (1 view) In Process Unspecified. EDMS 21:42 CT Chest For PE Angio In Process Unspecified. EDMS 22:36 Jesús Escobedo MD is Referral Physician. cp 23:04 No provider procedures requiring assistance completed. IV discontinued, intact, lg3 bleeding controlled, No redness/swelling at site. Pressure dressing applied. Administered Medications: 16:14 Drug: Ondansetron IVP 4 mg Route: IVP; Site: right upper arm; kc6 18:19 Follow up: Response: No adverse reaction; Nausea is decreased kc6 16:14 Drug: Famotidine IVP 20 mg Route: IVP; Site: right upper arm; kc6 18:19 Follow up: Response: No adverse reaction kc6 16:59 Drug: NS 0.9% IV 500 ml Route: IV; Rate: bolus; Site: right upper arm; kc6 18:19 Follow up: Response: No adverse reaction; IV Status: Completed infusion; IV Intake: kc6 500ml 16:59 Drug: fentaNYL (PF) IVP 25 mcg Route: IVP; Site: right upper arm; kc6 18:19 Follow up: Response: No adverse reaction; Pain is decreased; RASS: Alert and Calm (0) kc6 16:59 Drug: MethylPrednisoLONE IVP 80 mg Route: IVP; Site: right upper arm; kc6 18:19 Follow up: Response: No adverse reaction kc6 16:59 Drug: Albuterol Inhalation 2.5 mg Route: Inhalation; kc6 18:19 Follow up: Response: No adverse reaction kc6 16:59 Drug: Ipratropium Inhalation Aerosol 0.5 mg Route: Inhalation; kc6 18:19 Follow up: Response: No adverse reaction kc6 20:51 Drug: NS 0.9% IV 500 ml Route: IV; Rate: 100 ml/hr; Site: right upper arm; lg3 22:44 Follow up: IV Status: Completed infusion pf1 20:52 Drug: Ketorolac IVP 15 mg Route: IVP; Site: right upper arm; lg3 22:44 Follow up: Response: No adverse reaction; Pain is decreased pf1 20:52 Drug: NS 0.9% IV 500 ml Route: IV; Rate: bolus; Site: right upper arm; lg3 22:44 Follow up: IV Status: Completed infusion; IV Intake: 500ml pf1 22:44 Drug: GI Cocktail without - (Maalox PO Suspension 30 ml, Lidocaine Mucous pf1 Membrane Liquid 2 % 15 ml) Route: PO; 22:44 Follow up: Response: No adverse reaction pf1 Medication: 23:05 VIS not applicable for this client. lg3 Intake: 18:19 IV: 500ml; Total: 500ml. kc6 22:44 IV: 500ml; Total: 1000ml. pf1 Outcome: 22:37 Discharge ordered by . cp 23:04 Discharged to home via wheelchair. lg3 23:04 Condition: stable 23:04 Discharge instructions given to patient, Instructed on discharge instructions, follow up and referral plans. medication usage, Demonstrated understanding of instructions, follow-up care, medications, Prescriptions given X 3. 23:05 Patient left the ED. lg3 Signatures: Dispatcher [employer] EDMS Adriano Sheehan PA PA cp Stella Krishnan Lacie, RN RN lg3 Geeta Lacey, RN RN kc6 Sabine Brooks, RN RN pf1
[2022-11-24] MEDS ORDERED: LIDOCAINE VISCOUS 2% SOLN 15 ML UDC ONE (22:41)
[2022-11-24] MEDS ORDERED: MAGNES/ALUMIN/SIMET 30ML UCUP ONE (22:41)
[2022-11-24 23:21] VITALS: TEMP 97.3; O2SAT 100
[2022-11-24 23:43] VITALS: BP 106/67
--- NOTE | 2022-11-27 07:14 | EKG ---
Test Date: 2022-11-24 Test Time: 15:56:00 Cover Assembler: ANEUDY MEASUREMENT RESULTS: Intervals: Rate: 72 WI: 158 QRSD: 76 QT: 408 QTc: 446 [place]: P: 81 WI: 158 QRS: 60 T: 72 INTERPRETIVE STATEMENTS: Normal sinus rhythm Normal ECG Compared to ECG 11/14/2022 21:52:26 Sinus tachycardia no longer present Left-axis deviation no longer present Electronically Signed On 11-27-22 07:07:34 CDT by Grady Joseph
== END 2022-11-24 23:05 | disposition home or self-care (01) ==
LOC: ER 15:16
DX: R07.89 Other chest pain (principal); R53.1 Weakness; J44.9 Chronic obstructive pulmonary disease, unspecified; I48.91 Unspecified atrial fibrillation; Z85.118 Personal history of other malignant neoplasm of bronchus and lung
CPT/HCPCS: 96361; 93005; 85025; 80048; 36415; 83735; 85610; 85379; 80076; 84484; 83880; 71275; 71045; 96375; 96374; 99285; Q9967; J7613; J7644; J3010; J2405; J7040 ×2; J2920

== ENCOUNTER 2022-12-24 20:26 | Inpatient (IN) | payer OTHER ==
--- OUTSIDE RECORDS SUMMARY | 2022-12-24 20:30 | XMS REPORT | Clinical Summary ---
:1955 Author Organization [facility] Address [address] [place] [address] Care Team Providers Name Role Phone Carl Jones MD Unavailable Henrique Plasencia MD Primary Care Provider Kang Piedra MD Unavailable Mary Beth Hinson [facility] Unavailable Unavailable Allergies No known active allergies [...] mouth twice daily. QUEtiapine Take 1 tablet 60 tablet 0 [...] by 60 tablet 0 06/07/2022 0 ophen ([place]wall) 5 mouth every 8 023 mg-325 mg per (eight) hours as tabletIndications: needed for Small cell moderate pain carcinoma, NOS of for up to 30 upper lobe, lung days. 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/17/2021 Overview: Added automatically from request for rosa maria shah [id number] Family education about pain management 05/08/2021 History of radiation therapy 02/16/2021 Pressure-induced deep tissue damage of other site 02/2021 Overview: Site: Coccyx Sepsis 01/04/2021 Pulmonary embolism 11/17/2020 Stage 1 pressure ulcer of other site 11/14/2020 Overview: 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 Tube feeding diet [...] 08/10/2020 Decompensated COPD with acute exacerbation 07/30/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/30/2020 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 04/21 Last Assessment & Plan: Formatting of is note might be different from the [...] Encounters Date Type Specialty Care Team Description 12/24/2022 Telephone Thoracic Medicine Lisa Acevedo RN 12/20/2022 Telephone Thoracic Medicine Zulema Cedillo RN 12/14/2022 Documentation Thoracic Medicine Henrique Plasencia MD 12/13/2022 Orders Only Thoracic Medicine Олег Campbell, PA carcinoma, NO S of upper lobe, barbie g <Right> (Primar y Dx) 11/19/2022 Orders Only Thoracic Medicine Alex Amor, PharmD 09/13/2022 Follow-Up Thoracic Medicine Henrique Plasencia MD carcinoma, NOS of upper lobe, barbie g <Right> 09/13/2022 Ancillary Procedure Radiology Олег Clark ce david Douglas APRN carcinoma, N OS of upper lobe, barbie g <Right> 09/13/2022 Hospital Encounter Lab Henrique Plasencia MD carcinoma, NOS of upper lobe, barbie g <Right> 09/13/2022 Orders Only Thoracic Medicine Олег Clarkbeth, COURT[employer]Y VAN [employer]IVER carcinoma, N OS of upper lobe, barbie g <Right> (Primar y Dx) 09/13/2022 Travel 09/05/2022 Orders Only Thoracic Medicine Олег Clark, [employer] carcinoma, N OS of upper lobe, barbie g <Right> (Primar y Dx) 08/29/2022 Telephone Thoracic Medicine Liz Akhtar Shortn ess of Breath RN (/) 06/19/2022 Orders Only Thoracic Medicine Henrique Plasencia MD 06/07/2022 Follow-Up Thoracic Medicine Henrique Plasencia MD carcinoma, NOS of upper lobe, barbie g <Right> 06/07/2022 Hospital Encounter Lab Олег Clark benita l Stella, [employer]IVER carcinoma, N OS of upper lobe, barbie g <Right> 06/07/2022 Ancillary Procedure Radiology Олег Clark ce ll Stella, COURT[employer] V[employer]IVER carcinoma, N OS of upper lobe, barbie g <Right> 06/07/2022 Orders Only Thoracic Medicine Stella Clark APRN 06/07/2022 Orders Only Thoracic Medicine Henrique Plasencia MD 06/07/2022 Travel 05/09/2022 Telephone Thoracic Surgery Inez Sanon RN 05/03/2022 Orders Only Thoracic Medicine Олег Clark APRN carcinoma, N OS of upper lobe, barbie g <Right> (Primar y Dx) 05/03/2022 Telephone Thoracic Medicine Zulema Cedillo RN 12/28/2021 Nurse Triage Constantine Willis APRN 12/28/2021 Documentation Thoracic Medicine Henrique Plasencia MD after 12/24/2021 Immunizations Name Administration Dates Next Due Bamlanivimab [...] 163 cm (5' 4.17") 06/07/2022 7:11 AM ORTHOPEDIC NURSE Body Mass Index 18.03 06/07/2022 7:11 AM ORTHOPEDIC NURSE Plan of Treatment Health Maintenance Due Date [...] 9:54 Small cell Results for this AM ORTHOPEDIC NURSE carcinoma, NOS of procedure are in upper lobe, lung the results <Right> section. FRACTIONATED BILIRUBIN Routine 06/07/2022 9:54 Small cell Re sults for this AM ORTHOPEDIC NURSE carcinoma, NOS of procedure are in upper lobe, lung the results <Right> section. TOTAL PROTEIN Routine 06/07/2022 9:54 Small cell Results for this AM ORTHOPEDIC NURSE carcinoma, NOS of procedure are in upper lobe, lung the results <Right> section. ASPARTATE Routine 06/07/2022 9:54 Small cell Results for this AMINOTRANSFERASE AM ORTHOPEDIC NURSE carcinoma, NOS of proced ure are in upper lobe, lung the results <Right> section. ALANINE AMINOTRANSFERASE Routine 06/07/2022 9:54 Small cell Results for this AM ORTHOPEDIC NURSE carcinoma, NOS of procedure are in upper lobe, lung the results <Right> section. ALKALINE PHOSPHATASE Routine 06/07/2022 9:54 Small cell Resu lts for this AM ORTHOPEDIC NURSE carcinoma, NOS of procedure are in upper lobe, lung the results <Right> section. ALBUMIN LEVEL Routine 06/07/2022 9:54 Small cell Results for this AM ORTHOPEDIC NURSE carcinoma, NOS of procedure are in upper lobe, lung the results <Right> section. CALCIUM LEVEL TOTAL Routine 06/07/2022 9:54 Small cell Resul ts for this AM ORTHOPEDIC NURSE carcinoma, NOS of procedure are in upper lobe, lung the results <Right> section. .GLOMERULAR FILTRATION Routine 06/07/2022 9:54 Small cell Re sults for this RATE AM ORTHOPEDIC NURSE carcinoma, NOS of procedure are in upper lobe, lung the results <Right> section. SERUM CREATININE Routine 06/07/2022 9:54 Small cell Results for this AM ORTHOPEDIC NURSE carcinoma, NOS of procedure are in upper lobe, lung the results <Right> section. BLOOD UREA NITROGEN Routine 06/07/2022 9:54 Small cell Resul ts for this AM ORTHOPEDIC NURSE carcinoma, NOS of procedure are in upper lobe, lung the results <Right> section. GLUCOSE LEVEL Routine 06/07/2022 9:54 Small cell Results for this AM ORTHOPEDIC NURSE carcinoma, NOS of procedure are in upper lobe, lung the results <Right> section. MANUAL DIFFERENTIAL Routine 06/07/2022 9:54 Small cell Resul ts for this AM ORTHOPEDIC NURSE carcinoma, NOS of procedure are in upper lobe, lung the results <Right> section. Results CBC Routine 06/07/2022 9:54 Small cell Results for this AM ORTHOPEDIC NURSE carcinoma, NOS of procedure are in upper lobe, lung the results <Right> section. URIC ACID Routine 06/07/2022 9:54 Small cell Results for this AM ORTHOPEDIC NURSE carcinoma, NOS of procedure are in upper lobe, lung the results <Right> section. THYROID STIMULATING Routine 06/07/2022 9:54 Small cell Resul ts for this HORMONE AM ORTHOPEDIC NURSE carcinoma, NOS of procedure are in upper lobe, lung the results <Right> section. TOTAL T3 Routine 06/07/2022 9:54 Small cell Results for this AM ORTHOPEDIC NURSE carcinoma, NOS of procedure are in upper lobe, lung the results <Right> section. MAGNESIUM LEVEL Routine 06/07/2022 9:54 Small cell Results f or this AM ORTHOPEDIC NURSE carcinoma, NOS of procedure are in upper lobe, lung the results <Right> section. FREE THYROXINE Routine 06/07/2022 9:54 Small cell Results fo r this AM ORTHOPEDIC NURSE carcinoma, NOS of procedure are in upper lobe, lung the results <Right> section. COMPREHENSIVE METABOLIC Routine 06/07/2022 9:54 Small cell PANEL AM ORTHOPEDIC NURSE carcinoma, NOS of upper lobe, lung <Right> COMPLETE BLOOD COUNT W/ Routine 06/07/2022 9:54 Small cell DIFFERENTIAL AM ORTHOPEDIC NURSE carcinoma, NOS of upper lobe, lung <Right> PETCT SUBSEQUENT Routine 06/07/2022 9:27 Small cell Results for this TREATMENT STRATEGY AM ORTHOPEDIC NURSE carcinoma, NOS of proc edure are in upper lobe, lung the results <Right> section. after 12/24/[address] Chest with Contrast (09/13/2022 8:57 [...] 5. Multivessel coronary artery disease. Stella Clark APRN [facility] ORDERABLES POC Creatinine (09/13/2022 8:38 AM [...] Clean Dev Yes POC TELCOR Performing Lab [facility] POC TELCO R Comment: [facility], [address] [place] [address]; Lab Direct or: Karma Arciniega MD; Waived Point of Care Testing - Rosina Parikh MD Specimen Anatomical Collection Method Collection Time Receive d Time (Source) Location / / Volume Laterality Blood 09/13/2022 8:38 AM 8:38 CDT AM CDT Stella Clark APRN POCT ORDERABLES - DEVICE Performing Organization Address City/State/ZIP Code Phon e Number POC TELCOR Unless otherwise noted, [place] [address] lab tests performed by: Division of Pathology and Laboratory Medicine [address] [place] [address] (ABNORMAL) .Serum Creatinine (09/13/2022 8:10 AM CDT)Only the most recent of2 resultswithin the time period is included. athologist Signature Creatinine 0.62 (L) 0.67 - 1.17 [facility] mg/dL Comment: Testing Performed at [facility], [address] [place] [address], [address], [place] [address] Specimen Anatomical Collection Method Collection Time Receive d Time (Source) Location / / Volume Laterality Blood 09/13/2022 8:10 AM 8:36 CDT AM CDT Narrative [facility] - 09/13/2022 9:14 AM CDT Schedule same day tests/clinic appt Henrique Plasencia MD LAB BLOOD ORDERABLES Performing Organization Address City/State/ZIP Code Phon e Number [address] [place] [address] [address] (ABNORMAL) .CBC (09/13/2022 8:10 AM CDT)Only the most recent of2 resultswithin the time period is included. athologist Signature WBC 6.9 4.0 - 11.0 [facility] K/uL RBC 4.71 4.50 - 6.00 [facility] M/uL Hgb 14.5 14.0 - 18.0 [facility] gm/dL Comment: As part of CBC or as an individ ual orderable testing performed at [facility], [address] [place] [address] , [address], [place] [address] Hct 45.2 40.0 - 54.0 % [facility] Comment: As part of CBC or as an individ ual orderable testing performed at [facility], [address] [place] [address] , [address], [place] [address] MCV 96 82 - 98 fL [facility] MCH 30.8 27.0 - 31.0 pg [facility] MCHC 32.1 31.0 - 36.0 gm/dL [facility] RDW-SD 62.4 (H) 35.1 - 46.3 fL [facility] RDW-CV 17.9 (H) 12.0 - 15.5 % [facility] Platelet count 310 140 - 440 K/uL [facility] Comment: As part of CBC or as an individ ual orderable testing performed at [facility], [address] [place] [address] , [address], [place] [address] MPV 9.6 4.0 - 10.4 fL [facility] INRBC 0.0 <=0.0 % [facility] Comment: The INRBC (instrument NRBC) value reflec ts the enumeration of nucleated red blood cells contained i n a 200uL sample of whole blood analyzed by the instrumen t. This value may differ from the NRBC value reported in a manual differential, which is based on a 100 cell differentia l. As part of CBC testing performed at [facility] [address], [address], [place] [address] Specimen Anatomical Collection Method Collection Time Receive d Time (Source) Location / / Volume Laterality Blood 09/13/2022 8:10 AM 8:28 CDT AM CDT Narrative [facility] - 09/13/2022 8:32 AM CDT Schedule same day tests/clinic appt Henrique Plasencia MD LAB BLOOD ORDERABLES Performing Organization Address City/State/ZIP Code Phon e Number [address] [place] [address] [address] Glomerular Filtration Rate (09/13/2022 8:10 AM CDT)Only the most recent of2 resultswithin the time period is included. P athologist Signature eGFR 105 >=60 [facility] mL/min/1.73 sq. m Comment: The eGFRcr [...] fulfill criteria for CKD. Testing Performed at [facility], [address] [place] [address], [address], [place] [address] Specimen Anatomical Collection Method Collection Time Receive d Time (Source) Location / / Volume Laterality Blood 09/13/2022 8:10 AM 3 8:36 CDT AM CDT [facility] - 09/13/2022 9:14 AM CDT Schedule same day tests/clinic appt Henrique Plasencia MD LAB BLOOD ORDERABLES Performing Organization Address City/[facility] Phon e Number [address] [place] [address] [address] Fractionated Bilirubin (09/13/2022 8:10 AM CDT)Only the most recent of2 results within the time period is included. athologist Signature Bili Total <0.3 <=1.2 mg/dL [facility] Comment: Direct and indirect bilirubin will not b e reported when Total bilirubin result is <0.3 mg/dL Indocyanine Green (ICG) may cause falsel y elevated bilirubin results. Total and direct bilirubin must not be measured from samples containing indocyanine green. False elevation of total bilirubin can b e seen in patients with IgG concentrations above 28 g/L. Testing Performed at [facility], [address] [place] [address], [address], [place] [address] Specimen Anatomical Collection Method Collection Time Receive d Time (Source) Location / / Volume Laterality Blood 09/13/2022 8:10 AM 3 8:36 CDT AM CDT [facility] - 09/13/2022 9:14 AM CDT Schedule same day tests/clinic appt Henrique Plasencia MD LAB BLOOD ORDERABLES Performing Organization Address [facility] Phon e Number [address] [place] [address] [address] (ABNORMAL) Differential (09/13/2022 8:10 AM CDT)Only the most recent of2 results within the time period is included. athologist Signature Neutrophil % 48.8 42.0 - 66.0 [facility] % Comment: As part of Differential perform ed at [facility], [address], [address], [place] [address] Lymphocyte % 34.8 24.0 - 44.0 % [facility] Monocyte % 9.1 (H) 2.0 - 7.0 % [facility] Eosinophil % 6.6 (H) 1.0 - 4.0 % [facility] Basophil % 0.7 0.0 - 1.0 % [facility] IGRE % 0.0 0.0 - 0.4 % [facility] Comment: IGRE % count includes Metamyelocytes, My elocytes, and Promyelocytes. As part of Differential performed at [facility], [address], [address], [place] [address] Neutrophil Abs 3.37 1.70 - 7.30 K/uL [facility] Lymphocyte Abs 2.41 1.00 - 4.80 K/uL [facility] Monocyte Abs 0.63 0.08 - 0.70 K/uL [facility] Eosinophil Abs 0.46 (H) 0.04 - 0.40 K/uL [facility] Basophil Abs 0.05 0.00 - 0.10 K/uL [facility] IG Abs 0.00 0.00 - 0.04 K/uL [facility] Specimen Anatomical Collection Method Collection Time Receive d Time (Source) Location / / Volume Laterality Blood 09/13/2022 8:10 AM 8:28 CDT AM CDT Narrative [facility] - 09/13/2022 8:32 AM CDT Schedule same day tests/clinic appt Henrique Plasencia MD LAB BLOOD ORDERABLES Performing Organization Address City/State/ZIP Code Phon e Number [facility] [address] [place] [address] [address] BUN (09/13/2022 8:10 AM CDT)Only the most recent of2 resultswithin the time period is included. athologist Signature BUN 10 6 - 23 mg/dL [facility] Comment: Testing Performed at [facility], [address], [address], [place] [address] Specimen Anatomical Collection Method Collection Time Receive d Time (Source) Location / / Volume Laterality Blood 09/13/2022 8:10 AM 3 8:36 CDT AM CDT Narrative [facility] - 09/13/2022 9:14 AM CDT Schedule same day tests/clinic appt Henrique Plasencia MD LAB BLOOD ORDERABLES Performing Organization Address City/State/ZIP Code Phon e Number [facility] [address] [place] [address] [address] ALT (09/13/2022 8:10 AM CDT)Only the most recent of2 resultswithin the time period is included. P athologist Signature ALT 7 <=41 U/L [facility] Comment: Testing Performed at [facility], [address], [address], [place] [address] Specimen Anatomical Collection Method Collection Time Receive d Time (Source) Location / / Volume Laterality Blood 09/13/2022 8:10 AM 3 8:36 CDT AM CDT [facility] - 09/13/2022 9:14 AM CDT Schedule same day tests/clinic appt Henrique Plasencia MD LAB BLOOD ORDERABLES Performing Organization Address City/[facility] Phon e Number [facility] [address] [place] [address] [address] Aspartate Aminotransferase (09/13/2022 8:10 AM CDT)Only the most recent of2 resultswithin the time period is included. P athologist Signature AST 12 <=40 U/L [facility] Comment: Testing Performed at [facility], [address], [address], [place] [address] Specimen Anatomical Collection Method Collection Time Receive d Time (Source) Location / / Volume Laterality Blood 09/13/2022 8:10 AM 3 8:36 CDT AM CDT Narrative [facility] - 09/13/2022 9:14 AM CDT Schedule same day tests/clinic appt Henrique Plasencia MD LAB BLOOD ORDERABLES Performing Organization Address City/State/ZIP Code Phon e Number [facility] [address] [place] [address] [address] Total Protein (09/13/2022 8:10 AM CDT)Only the most recent of2 resultswithin the time period is included. [facility] Total Protein 7.2 6.4 - 8.3 [facility] g/dL Comment: Testing Performed at [facility] Lab [facility], [address], [address], [place] [address] Specimen Anatomical Collection Method Collection Time Receive d Time (Source) Location / / Volume Laterality Blood 09/13/2022 8:10 AM 3 8:36 CDT AM CDT Narrative [facility] - 09/13/2022 9:14 AM CDT Schedule same day tests/clinic appt Henrique Plasencia MD LAB BLOOD ORDERABLES Performing Organization Address City/[facility]/ZIP [facility] e Number [facility] [address] [place] [address]. [place] [address] [address] Alkaline Phosphatase (09/13/2022 8:10 AM CDT)Only the most recent of2 results within the time period is included. [facility] Alk Phos 94 40 - 129 U/L [facility] Comment: Testing Performed at [facility] Lab [facility], [address], [address], [place] [address] Specimen Anatomical Collection Method Collection Time Receive d Time (Source) Location / / Volume Laterality Blood 09/13/2022 8:10 AM 3 8:36 CDT AM CDT Narrative [facility] - 09/13/2022 9:14 AM CDT Schedule same day tests/clinic appt Henrique Plasencia MD LAB BLOOD ORDERABLES Performing Organization Address City/[facility]/ZIP [facility] e Number [address] [place] [address] [address] (ABNORMAL) Glucose Level (09/13/2022 8:10 AM CDT)Only the most recent of2 resultswithin the time period is included. athologist [facility] Glucose Level 102 (H) 70 - 99 [facility] mg/dL Comment: Effective 01/24/16, the glucose reference intervals have been updated based on [place] [employer] guidelines (Standards of Medical Care in Diabetes 2016. Diabetes Care 2016; 39: S13-S22). Fasting blood glucose: Normal: 70-99 mg/dL Impaired fasting glucose (increased risk for diabetes or pre-diabetes): 100- 125 mg/dL Diabetes mellitus: >/=126 mg/dL Random blood glucose: Normal: 70-199 mg/dL Note: Random glucose >100 mg/dL is assoc iated with increased risk for diabetes Testing Performed at [facility], [address] [place] [address], [address], [place] [address] Specimen Anatomical Collection Method Collection Time Receive d Time (Source) Location / / Volume Laterality Blood 09/13/2022 8:10 AM 3 8:36 CDT AM CDT Narrative [facility] - 09/13/2022 9:13 AM CDT Schedule same day tests/clinic appt Henrique Plasencia MD LAB BLOOD ORDERABLES Performing Organization Address City/[facility]/[address] [place] [address] [address] Calcium Level (09/13/2022 8:10 AM CDT)Only the most recent of2 resultswithin the time period is included. athologist Signature Calcium Lvl 9.4 8.4 - 10.2 [facility] mg/dL Comment: Testing Performed at [facility], [address] [place] [address], [address], [place] [address] Specimen Anatomical Collection Method Collection Time Receive d Time (Source) Location / / Volume Laterality Blood 09/13/2022 8:10 AM 3 8:36 CDT AM CDT Narrative [facility] - 09/13/2022 9:14 AM CDT Schedule same day tests/clinic appt Henrique Plasencia MD LAB BLOOD ORDERABLES Performing Organization Address [facility] e Number [address] [place] [address] [address] Albumin Level (09/13/2022 8:10 AM CDT)Only the most recent of2 resultswithin the time period is included. athologist Signature Albumin Lvl 4.0 3.5 - 5.2 [facility] gm/dL Comment: Testing Performed at [facility] Lab [facility], [address], [address], [place] [address] Specimen Anatomical Collection Method Collection Time Receive d Time (Source) Location / / Volume Laterality Blood 09/13/2022 8:10 AM 3 8:36 CDT AM CDT Narrative [facility] - 09/13/2022 9:14 AM CDT Schedule same day tests/clinic appt Henrique Plasencia MD LAB BLOOD ORDERABLES Performing Organization Address City/State/ZIP Code Phon e Number [facility] [address] [facility] [place] [address] [address] Electrolyte Panel (09/13/2022 8:10 AM CDT)Only the most recent of2 resultswithin the time period is included. athologist Signature Sodium Lvl 141 136 - 145 [facility] mEq/L Comment: Testing Performed at [facility] Lab [facility], [address], [address], [place] [address] Potassium Lvl 3.9 3.5 - 5.1 mEq/L [facility] Comment: Testing Performed at [facility] Lab [facility], [address], [place] [address] Chloride 105 98 - 107 mEq/L [facility] Comment: Testing Performed at [facility] Lab Am [facility], [address], [address], [place] [address] CO2 25 22 - 29 mEq/L [facility] Comment: Testing Performed at [facility] Lab [facility], [address], [address], [place] [address] Anion Gap 11 4 - 14 mEq/L [facility] Comment: Testing Performed at [facility] Lab [facility], [address], [place] [address] Specimen Anatomical Collection Method Collection Time Receive d Time (Source) Location / / Volume Laterality Blood 09/13/2022 8:10 AM 3 8:36 CDT AM CDT Narrative [facility] - 09/13/2022 9:14 AM CDT Schedule same day tests/clinic appt Henrique Plasencia MD LAB BLOOD ORDERABLES Performing Organization Address City/State/ZIP Code Phon e Number [facility] [address] [place] [address] [address] Uric Acid (06/07/2022 9:54 AM ORTHOPEDIC NURSE) athologist [facility] Uric Acid 5.3 3.4 - 7.0 [facility] mg/dL Comment: Testing Performed at [facility] Lab [facility], [address], [address], [place] [address] Specimen Anatomical Collection Method Collection Time Receive d Time (Source) Location / / Volume Laterality Blood 06/07/2022 9:54 AM 2 ORTHOPEDIC NURSE 10:05 AM ORTHOPEDIC NURSE Stella Clark APRN LAB BLOOD ORDERABLES Performing Organization Address City/State/ZIP Code Phon e Number [facility] [address] [place] [address] [address] T3 (06/07/2022 9:54 AM ORTHOPEDIC NURSE) athologist [facility] T3 Total 153 80 - 200 [facility] ng/dL [facility] Specimen Anatomical Collection Method Collection Time Receive d Time (Source) Location / / Volume Laterality Blood 06/07/2022 9:54 AM 2 ORTHOPEDIC NURSE 10:53 AM ORTHOPEDIC NURSE Stella Clark APRN LAB BLOOD ORDERABLES Performing Organization Address City/State/ZIP Code Phon e Number [facility] CANCER Unless otherwise noted, [place] [address] CENTER all lab tests performed by: Division of Pathology and Laboratory Medicine [address] [place] [address] TSH (06/07/2022 9:54 AM ORTHOPEDIC NURSE) athologist [facility] TSH 0.65 0.27 - 4.20 [facility] mcunit/mL Comment: Note: New Methodology and Reference Ra nge change effective 10/16/2017 at 1400 Testing Performed at [facility] Lab Flatwork Finisher [facility], [address], [place] [address] Specimen Anatomical Collection Method Collection Time Receive d Time (Source) Location / / Volume Laterality Blood 06/07/2022 9:54 AM 2 ORTHOPEDIC NURSE 10:05 AM ORTHOPEDIC NURSE Stella Clark APRN LAB BLOOD ORDERABLES Performing Organization Address City/State/ZIP Code Phon e Number [facility] [address] [place] [address] [address] Free T4 (06/07/2022 9:54 AM ORTHOPEDIC NURSE) athologist Signature T4 Free 1.01 0.93 - 1.70 [facility] ng/dL Comment: Testing Performed at [facility] Am bulatory Care [facility], [address], [place] [address] Specimen Anatomical Collection Method Collection Time Receive d Time (Source) Location / / Volume Laterality Blood 06/07/2022 9:54 AM 2 ORTHOPEDIC NURSE 10:05 AM ORTHOPEDIC NURSE Stella Clark APRN LAB BLOOD ORDERABLES Performing Organization Address City/[facility]/ZIP Code Phon e Number [facility] [address] [place] [address] [address] Magnesium Level (06/07/2022 9:54 AM ORTHOPEDIC NURSE) athologist Signature Magnesium 1.9 1.6 - 2.6 [facility] mg/dL Comment: Testing Performed at [facility], [address], [address], [place] [address] Specimen Anatomical Collection Method Collection Time Receive d Time (Source) Location / / Volume Laterality Blood 06/07/2022 9:54 AM 2 ORTHOPEDIC NURSE 10:05 AM ORTHOPEDIC NURSE Stella Clark APRN LAB BLOOD ORDERABLES Performing Organization Address City/[facility]/ZIP Code Phon e Number [facility] [address] [place] [address] [address] PETCT Subsequent Treatment Strategy (06/07/2022 9:27 AM ORTHOPEDIC NURSE) Anatomical Region Laterality Modality Whole Body Positron Emission To mography (PET) Specimen (Source) Anatomical Collection Method Collection Time Re ceived Time Location / / Volume Laterality 06/07/2022 11:01 AM ORTHOPEDIC NURSE Impressions 06/07/2022 11:46 AM ORTHOPEDIC NURSE 1. No convincing evidence of FDG-avid small cell lung cancer. 2. Bilateral irregular lung opacities wi th some regions demonstrating associated activity show some change in anatomic configuration when compared to 10/15/2021 CT and are compatible with a chronic waxing/waning infectious or inflammatory process. 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 Stella Clark APRN IMG PETCT ORDERABLES after 12/24/2021 Insurance Payer Benefit Plan / Subscriber ID Effective Phone Address T ype Group Dates [employer] [id number] 2020-Prese [address] 72 Medicare MEDICARE MEDICARE [place] [id number] Guarantor Name Account Type Relation to Date of Phone Billing Patient Address Chato Moreno Personal/Family Self 1955 [phone] 1 (Work) [place] [id number] Chato Moreno Personal/Family Self 1955 [id number] [place] [id number] Advance Directives Code Status Date Activated Date Inactivated Comments Full Code 10/15/2021 2:23 PM 10/24/2021 8:32 PM Code Status Date Activated Date Inactivated Comments Full Code 09/03/2021 10:00 PM 09/07/2021 5:51 PM Full Code 02/16/2021 11:33 PM 03/02/2021 8:45 PM Full Code 01/22/2021 1:08 AM 01/30/2021 8:41 PM Full Code 01/04/2021 3:56 PM 01/19/2021 6:53 PM 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
--- OUTSIDE RECORDS SUMMARY | 2022-12-24 20:45 | XMS REPORT | Continuity of Care Document ---
:1955 Author Organization [facility] t Address [address] [facility] [place] [address] Care Team Providers Name Role Phone MARIA FERNANDA WASHINGTON Primary Care Physician Unavailable SYSTEM, PROVIDER NOT IN Attending Clinician Unavailable Curtis JARAMILLO, Lisa Ann Attending Clinician Unavailable Zulema Cedillo RN Attending Clinician Unavailable Padmini CARDENAS, Maria Fernanda Fu Attending Clinician Adrian SEGOVIA, Grey Trevino Attending Clinician Mt TorresDAlex Attending Clinician Stella Clark APRN Attending Clinician Liz Akhtar RN Attending Clinician Unavailable Inez Sanon RN Attending Clinician Unavailable Constantine Willis APRN Attending Clinician Ger JARAMILLO, Lolita Sommer Attending Clinician Unavailable Bibiana Pedersen RN Attending Clinician Unavailable Kasie Mehta RN Attending Clinician Unavailable Erin Olivares RN Attending Clinician Daisy Shaffer RN Attending Clinician Unavailable Fito Gutierres MD Attending Clinician Karishma Chu RN Attending Clinician Unavailable Bijan CARDENAS, Verónica Attending Clinician Thelma Bowser DO Attending Clinician Judy CARDENAS, Ed Attending Clinician Randa CARDENAS, Tod Cervantes. Attending Clinician Alexus CARDENAS, Boni Carr Attending Clinician [phone] Jackson JARAMILLO, Arcadio Attending Clinician Unavailable BONI OBRIEN Attending Clinician Unavailable Aisha CARDENAS, Edwige Orozco Attending Clinician Zane CARDENAS, Jenise Attending Clinician Dhiraj Fry CRNA Attending Clinician Jacquelyn CARDENAS, Shena Gudino Attending Clinician Unavailable TOD GLASS V. Attending Clinician Unavailable MARIA FERNANDA WASHINGTON V. Attending Clinician Unavailable JUDY, BEA Attending Clinician Unavailable Shantal Patiño MD, Deshawn Attending Clinician [phone] Dean JARAMILLO, Stella Stewart Attending Clinician Unavailable Ileana Thrasher RN Attending Clinician Unavailable Aisha CARDENAS, Mehrdad Attending Clinician Gurpreet Estes MD Attending Clinician SOFI HART Attending Clinician Unavailable Michael Lopez RN Attending Clinician Unavailable Lela Sanon APN Attending Clinician Herrera Piedra MD Attending Clinician Jacki Campbell Attending Clinician Gucci ROUSSEAU, Sarah Ybarra Attending Clinician Tejinder CARDENAS, Raymundo Attending Clinician Miguel Ángel ROUSSEAU, Nicole Hirsch Attending Clinician Abdirizak Fenton MD Attending Clinician Jarrett JARAMILLO, Génesis Ann Attending Clinician Unavailable Génesis Manzo RN Attending Clinician Unavailable Andrea ROUSSEAUJackie Attending Clinician Rob JARAMILLO, Yudith Lehman Attending Clinician Unavailable Crista CARDENAS, Claude Attending Clinician Yannick BRUNER, Elmira Zimmerman Attending Clinician Tegan CARDENAS, Giovanna Tanner Attending Clinician Sravan [facility], Mary Beth Ann Attending Clinician Unavailable Rah CARDENAS, Herrera Attending Clinician Enzo PharmD, Wayne Attending Clinician Brandon RN, Juan Lehman Attending Clinician Unavailable Lisa JARAMILLO, Gurpreet Ramírez Attending Clinician Unavailable Pineda BECKFORDP, Gabrielle Owens Attending Clinician Tejinder RD, Alina Attending Clinician Jacque BRUNER, Wilfredo Stewart Attending Clinician Chris PharmD, Tanja Mora Attending Clinician Unavailable Precious ACRDENAS, Benedicto Attending Clinician Shivam JARAMILLO, Sahara Farah [...] Unavailable HERRERA PIEDRA Attending Clinician Unavailable ROCKY RODRIGUZE Attending Clinician Unavailable CODY CRANE Attending Clinician Unavailable AURELIANO EDWARD Attending Clinician Unavailable ORACIO REECE Attending Clinician Unavailable WILFREDO OLIVAS Attending Clinician Unavailable MAURICIO MAY Attending Clinician Unavailable HAYLEY TAPIA Attending Clinician Unavailable Dhiraj Jaimes Attending Clinician Unavailable THELMA BOWSER Admitting Clinician Unavailable MEHRDAD ROD Admitting Clinician Unavailable CLAUDE TOBIN Admitting Clinician Unavailable GLASS, SON V. Admitting Clinician Unavailable GABE OROZCO Admitting Clinician Unavailable SARAH SHARMA Admitting Clinician Unavailable RUSSELL GIRALDO Admitting Clinician Unavailable Physician, No Primary or Family Admitting Clinician Unavaila ble Payers Payer Name Policy Type Policy Number Effective Date Expiration Date Raquel EMANUEL [id number] 2020 PLUS CLASSIC/VALUE 00:00:00 Problems Condition Condition [...] ity o f 00:00: g of this 00 note might be Anderso different n from the Cancer original. Center Added automatic ally from request for surgery [id number] Community Community Disease Active Uni vers acquired [...] Added automatic ally from request for surgery [id number] Family Family Disease Active 2020-06 Univers education education 1-09 [place] of about [place] management management 00 MD Fuentes zimmerman [facility] History of History of Disease Recurre Univers radiation radiation nce 8-20 ity of therapy therapy 00:00: MD Fuentes zimmerman [facility] Pressure-i Pressure-i Disease Active Overview : Univers nduced nduced 7-09 Formattin ity of deep deep 00:00: g of this [place] tissue tissue 00 note damage of damage of might be An derso other site other site different n from the Cancer original. 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 Center Left ear- stage 1-supervisor bindery related from nasal cannula Tube Tube Disease Active Univers feeding feeding 4-24 ity of diet diet 00:00: [place] 00 MD Fuentes zimmerman [facility] Pneumonia Pneumonia Disease Active Uni vers due to due to 4-22 ity of other other 00:00: [place] Gram-negat Gram-negat 00 MD ornelas ceci Andjaniceo bacteria bacteria n [facility] Sequelae Sequelae Disease Active Unive rs of of 4-11 ity of hyperalime hyperalime [place] ntation ntation 00 MD Fuentes zimmerman [facility] Adverse Adverse Disease Active Univers effect of effect of 3-23 ity of glucocorti glucocorti [place] coids and coids and 00 synthetic synthetic Prince rso analogues analogues [facility] Current Current Disease Active Univers use of use of 3-23 ity of insulin insulin 00:00: [place] 00 MD Fuentes zimmerman [facility] Anxiety Anxiety Disease Active Univers disorder disorder 3-17 ity of due to a due to a 00:00: [place] general general 00 medical medical Fuentes condition condition [facility] Disorder Disorder Disease Active Unive rs of fluid of fluid 3-08 ity of AND/OR AND/OR 00:00: [place] electrolyt electrolyt 00 MD e e Anderso zimmerman [facility] Sinus Sinus Disease Active Univers tachycardi tachycardi 3-08 it y of a a 00:00: [place] 00 MD Fuentes zimmerman [facility] Pleuritic Pleuritic Disease Active Uni vers pain pain 2-26 ity of 00:00: [place] 00 MD Fuentes zimmerman [facility] Anemia of Anemia of Disease Recurre Un yakov chronic chronic nce 2-22 ity of disease disease 00:00: [place] 00 MD Fuentes zimmerman [facility] Acute and Acute and Disease Active Uni vers chronic chronic 2-22 [place]y of respirator [place] y failure y failure 00 with with Anderso hypoxia hypoxia n [facility] Failure to Failure to Disease Active U nivers thrive thrive 2-22 ity of 00:00: [place] 00 MD Fuentes zimmerman [facility] 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 An derso on on n [facility] Dyspnea Dyspnea Disease Active Univers 2-11 ity of 00:00: [place] 00 MD Fuentes zimmerman [facility] Decompensa Decompensa Disease Active U nivers lakhwinder COPD lakhwinder COPD 1-31 ity of with acute with acute 00:00[place] exacerb[place] exacerbati 00 on on [facility] 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 Disease Recurre Un yakov current current nce - ity of use of use of 00:00: [place] opiate opiate 00 analgesic [facility] 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 [...] Disease Active Univers emphysema emphysema ity of [place] MD Fuentes zimmerman [facility] Adjustment Adjustment Disease Recurre Univers disorder disorder nce ity of with mixed with mixed [place] anxiety anxiety and and Andmiguel depressed depressed n mood mood [facility] Chronic Chronic Disease Active Univers pain due pain due ity of to to [place] malignant malignant neoplastic neoplastic An derso disease disease n Cancer Center Slow Slow Disease Active Univers transit transit it[place] of const[place] on on [place] Fuentes zimmerman [facility] Other Other Disease Active Univers psychologi psychologi it y of tracy or tracy or [place] physical physical MD stress, stress, Anderso not not n elsewhere elsewhere Canc er classified classified Ce nter Personal Personal Disease Recurre Univ ers history of history of nce it y of COVID-19 COVID-19 [place] zimmerman [facility] Acute Acute Disease Resolve 2021-09-04 2021-09-04 Univers kidney kidney d 8 00:00:00 14:37:22 [place]y of injury due injury due [place] to to 00 hypovolemi hypovolemi An derso a a n [facility] Hypovolemi Hypovolemi Disease Resolve 2021-09-04 2021-09-04 Univers a a d 8 00:00:00 14:36:33 ity of 00:00: [place] 00 MD Fuentes zimmerman [facility] High High Disease Resolve 2021-09-04 2021-09-04 Univers troponin I troponin I d 8 00:00:00 14:35:35 ity of level level 00:00: [place] 00 MD Fuentes zimmerman [facility] Hyperkalem Hyperkalem Disease Resolve 2021-09-04 2021-09-04 Univers ia ia d 02-16 00:00:00 14:36:15 ity of 00:00: [place] 00 MD Fuentes zimmerman [facility] Aspergillo Aspergillo Disease Resolve 2021-09-04 2021-09-04 Univers sis with sis with d 10-25 00:00:00 14:36:44 it y of pneumonia pneumonia 00:[place] 00 [place] Dill [facility] Multiple Multiple Disease Resolve 2021-09-04 2021-09-04 Univers lung lung d 4- 00:00:00 14:36:17 [place] of abscesses abscesses [place] Dill [facility] Drug Drug Disease Resolve 2021-09-04 2021-09-04 Univers induced induced d 3- 00:00:00 14:37:13 ity of diabetes diabetes 00:00: [place] mellitus mellitus 00 with with Fuentes zimmerman [facility] 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 Disease Resolve 2021-09-04 2021-09-04 Univers current current d 3- 00:00:00 14:37:15 ity of use of use of 00:00: [place] systemic systemic 00 [facility] Pneumocyst Pneumocyst Disease Resolve 2020-0 2021-09-04 2021-09-04 Univers osis osis d 3-08 00:00:00 14:35:43 ity of pneumonia pneumonia 00:00: [facility] Cytomegalo Cytomegalo Disease Resolve 2021-09-04 2021-09-04 Univers virus virus d 3-08 00:00:00 14:35:47 [place] infection infection [place] Villegas erasmo [facility] Diarrhea Diarrhea Disease Resolve 2021-09-04 2021-09-04 Univers d 2-22 00:00:00 14:37:13 ity of 00:00: [place] 00 MD Villegas erasmo [facility] Aspiration Aspiration Disease Resolve 2021-09-04 2021-09-04 Univers into lower into lower d 2-11 00:00:00 14:37:24 [place] of respirator [place]ator [place] y tract y tract 00 MD Villegas erasmo [facility] COVID-19 COVID-19 Disease Resolve 2021-09-04 2021-09-04 Univers d 1-30 00:00:00 14:35:39 ity of 00:00: [place] 00 MD Fuentes zimmerman [facility] Amaurosis Amaurosis Disease Resolve 2017-0 2021-09-04 2021-09-04 Univers fugax fugax d 4-29 00:00:00 14:36:43 ity of 00:00: [place] 00 MD Fuentes zimmerman [facility] [...] 14:36:37 ity of abnormal abnormal [facility] Allergies, Adverse Reactions, Alerts Allergy Allergy Status Severity Reaction(s) Onset Inactive Treating Comm ents Source Name Type Date Date Clinician No Known DA Active [facility] 2019-06 [facility] No Known DA Active [facility] 2019-[facility] Allergie 0-30 [facility] codeine DA Active [facility]- [facility] codeine DA Active [facility] rash [facility] 2 [facility] codeine DA Active [facility] 2011-[facility] 0- [facility] codeine DA Active [facility] rash 2011-06 [facility] 0 [facility] d [facility] NO KNOWN Drug Active Univers ALLERGIE Class ity of S [facility] Family History Family Member Diagnosis Comments Start Date Stop Date Source Maternal grandfather [facility] [place] Natural sister Lung cancer Universit y of [place] [facility] Social History Social Habit Start Date Stop Date Quantity Comments Source History of tobacco Cigarette Smoker University of use [place] MD Levi darden [facility] History SDOH University o f Alcohol Frequency [facility] History SDOH University o f Alcohol Std Drinks [facility] History SDOH University o f Alcohol Binge [facility] Exposure to 2022-09-03 2022-09-13 Not sure University of SARS-CoV-2 (event) 00:00:00 08:17:00 [facility] Cigarettes smoked 2022-09-13 2022-09-13 Univers ity of current (pack per 00:00:00 00:00:00 [facility] day) - Reported Cancer Ce nter Tobacco use and 2022-09-13 2022-09-13 Smokeless Universit y of exposure 00:00:00 00:00:00 tobacco non-user [facility] Alcohol intake 2022-09-13 2022-09-13 Ex-drinker University of 00:00:00 00:00:00 (finding) Willis darden [facility] Alcohol Comment 2020-03-02 2020-03-02 .5 gallon of Univers ity of 00:00:00 00:00:00 vodka daily 15 [place] MD A nderson [facility] ago [facility] Sex Assigned At [birth year] Universit y of 00:00:00 00:00:00 [facility] Smoking Status Start Date Stop Date Source Ex-smoker 2022-09-13 00:00:00 2022-09-13 [facility] Medications Ordered Filled Start Stop Current Ordering Indication Dosage Frequency Signature Comments Components Source Medication Medication Date Date Medication? Clinician (SIG) Name Name atorvastati Yes 40mg Take 40 mg Univers n (LIPITOR) 3-17 by mouth ity of 40 mg 11:58: daily. tablet 00 MD Fuentes zimmerman [facility] budesonide Yes severe .25mg Inhale Un yakov (PULMICORT) 3-17 chronic 0.25 mg by ity of 0.25 mg/2 11:58: obstructive nebulizati [place] mL 00 pulmonary on daily. nebulizer disease [facility] solution [facility] Yes Inhale by U nivers m-vilantero 3-17 mouth. ity of L 62.5-25 11:58: [place] mcg/actuati 00 on dsdv [facility] megestrol Yes 400mg Give 400 Uni vers (MEGACE) 40 3-17 mg per ity of mg/mL 11:58: G-tube. [place] suspension 00 MD Fuentes zimmerman [facility] atorvastati Yes 40mg Take 40 mg Univers n (LIPITOR) 3-17 by mouth ity of 40 mg 11:58: daily. tablet 00 MD Fuentes zimmerman [facility] budesonide Yes severe .25mg Inhale Un yakov (PULMICORT) 3-17 chronic 0.25 mg by ity of 0.25 mg/2 11:58: obstructive nebulizati [place] mL 00 pulmonary on daily. nebulizer disease Anderso solution [facility] Yes Inhale by U nivers m-vilantero 3-17 mouth. ity of L 62.5-25 11:58: [place] mcg/actuati 00 on dsdv [facility] megestrol Yes 400mg Give 400 Uni vers (MEGACE) 40 3-17 mg per ity of mg/mL 11:58: G-tube. [place] suspension 00 MD Dill [facility] atorvastati Yes 40mg Take 40 mg Univers n (LIPITOR) 3-17 by mouth ity of 40 mg 11:58: daily. [place] tablet 00 [facility] budesonide Yes severe .25mg Inhale Un yakov (PULMICORT) 3-17 chronic 0.25 mg by ity of 0.25 mg/2 11:58: obstructive nebulizati [place] mL 00 pulmonary on daily. nebulizer disease [facility] solution [facility] umeclidiniu Yes Inhale by U nivers m-vilantero 3-17 mouth. ity of L 62.5-25 11:58: [place] mcg/actuati 00 on dsdv [facility] megestrol Yes 400mg Give 400 Uni vers (MEGACE) 40 3-17 mg per ity of mg/mL 11:58: G-tube. [place] suspension 00 MD Fuentes zimmerman [facility] atorvastati Yes 40mg Take 40 mg Univers n (LIPITOR) 3-17 by mouth ity of 40 mg 11:58: daily. [place] tablet 00 [facility] budesonide Yes severe .25mg Inhale Un yakov (PULMICORT) 3-17 chronic 0.25 mg by ity of 0.25 mg/2 11:58: obstructive nebulizati [place] mL 00 pulmonary on daily. nebulizer disease Anderso solution [facility] umeclidiniu Yes Inhale by U nivers m-vilantero 3-17 mouth. ity of L 62.5-25 11:58: [place] mcg/actuati 00 on dsdv [facility] megestrol Yes 400mg Give 400 Uni vers (MEGACE) 40 3-17 mg per ity of mg/mL 11:58: G-tube. [place] suspension 00 [facility] atorvastati Yes 40mg Take 40 mg Univers n (LIPITOR) 3-17 by mouth ity of 40 mg 11:58: daily. tablet 00 MD Dill [facility] budesonide Yes severe .25mg Inhale Un yakov (PULMICORT) 3-17 chronic 0.25 mg by ity of 0.25 mg/2 11:58: obstructive nebulizati [place] mL 00 pulmonary on daily. nebulizer disease Anderso solution [facility] umeclidiniu Yes Inhale by U nivers m-vilantero 3-17 mouth. ity of L 62.5-25 11:58: [place] mcg/actuati 00 [facility]mg Give 400 Uni vers (MEGACE) 40 3-17 mg per ity of mg/mL 11:58: G-tube. [place] suspension 00 MD Dill [facility] Eliquis 5 Yes 5mg Take 1 Univer s mg tablet 3-06 tablet (5 ity o f 00:00: mg) by mouth twice Anderso daily. [facility] Eliquis 5 Yes 5mg Take 1 Univer s mg tablet 3-06 tablet (5 ity o f 00:00: mg) by [place] mouth twice Anderso daily. [facility] Eliquis 5 Yes 5mg Take 1 Univer s mg tablet 3-06 tablet (5 ity o f 00:00: mg) by [place] mouth twice Anderso daily. [facility] Eliquis 5 0 Yes 5mg Take 1 Univer s mg tablet 3-06 tablet (5 ity o f 00:00: mg) by [place] mouth twice Anderso daily. [facility] Eliquis 5 Yes 5mg Take 1 Univer s mg tablet 3-06 tablet (5 ity o f 00:00: mg) by [place] mouth twice Anderso daily. [facility] umeclidiniu 2021-06 Yes Inhale by U nivers m-vilantero 2-09 mouth. ity of L 62.5-25 12:33: [place] mcg/actuati 10 [facility] 2021-06 Yes Inhale by U nivers m-vilantero 2-09 mouth. ity of L 62.5-25 12:33: [place] mcg/actuati 10 MD on dsdv [facility] atorvastati 2021-06 Yes 40mg Take 40 mg Univers n (LIPITOR) 2-09 by mouth ity of 40 mg 12:30: daily. [place] tablet 21 [facility] budesonide 2021-06 Yes severe .25mg Inhale Un yakov (PULMICORT) 2-09 chronic 0.25 mg by ity of 0.25 mg/2 12:30: obstructive nebulizati [place] mL 21 pulmonary on daily. [facility]bulizer disease [facility] solution [facility] megestrol 2021-06 Yes 400mg Give 400 Uni vers (MEGACE) 40 2-09 mg per ity of mg/mL 12:30: G-tube. [place] suspension 21 MD Fuentes zimmerman [facility] atorvastrihealth 2021-06 Yes 40mg Take 40 mg Univers n (LIPITOR) 2-09 by mouth ity of 40 mg 12:30: daily. [place] tablet 21 [facility] budesonide 2021-06 Yes severe .25mg Inhale Un yakov (PULMICORT) 2-09 chronic 0.25 mg by ity of 0.25 mg/2 12:30: obstructive nebulizati [place] mL 21 pulmonary on daily. nebulizer disease [facility] solution [facility] megestrol 2021-06 Yes 400mg Give 400 Uni vers (MEGACE) 40 2-09 mg per ity of mg/mL 12:30: G-tube. [place] suspension 21 MD Dill [facility] HYDROcodone 2021-06- No Small cell 1{tbl} Take 1 Univers -acetaminop 2-07-08 carcinoma, tablet by ity of hen ([place]) 00:00: 05:59 [place] 5 mg-325 mg 00 :00 upper lobe, every 8 MD per tablet lung (eight) Bakari o <Right> hours as n needed for Cancer moderate Center pain for up to 30 days. HYDROcodone 2021-06- No Small cell 1{tbl} Take 1 Univers -acetaminop 2-07-08 carcinoma, tablet by ity of hen ([place]) 00:00: 05:59 [place] of [place] 5 mg-325 mg 00 :00 upper lobe, every 8 MD per tablet lung (eight) Bakari o <Right> hours as n needed for Cancer moderate Center pain for up to 30 days. HYDROcodone 2021-06- No Small cell 1{tbl} Take 1 Univers -acetaminop 2-02 28- carcinoma, tablet by ity of hen (alike) 00:00: 05:59 [place]OS of mouth [place] 5 mg-325 mg 00 :00 upper lobe, every 8 MD per tablet lung (eight) Bakari o <Right> hours as n needed for Cancer moderate Center pain for up to 30 days. HYDROcodone 2021-06- No Small cell 1{tbl} Take 1 Univers -acetaminop 2-07-08 carcinoma, tablet by ity of hen (alike) 00:00: 05:59 [place]OS of mouth [place] 5 mg-325 mg 00 :00 upper lobe, every 8 MD per tablet lung (eight) Bakari o <Right> hours as n needed for Cancer moderate Center pain for up to 30 days. HYDROcodone 2021-06- No Small cell 1{tbl} Take 1 Univers -acetaminop 2-07-08 carcinoma, tablet by ity of hen (alike) 00:00: 05:59 [place]OS of mouth [place] 5 mg-325 mg 00 :00 upper lobe, every 8 MD per tablet lung (eight) Bakari o <Right> hours as n needed for Cancer moderate Center pain for up to 30 days. HYDROcodone 2021-06- No Small cell 1{tbl} Take 1 Univers -acetaminop 2-07-08 carcinoma, tablet by ity of hen (alike) 00:00: 05:59 [place]OS of mouth [place] 5 mg-325 mg 00 :00 upper lobe, every 8 MD per tablet lung (eight) Bakari o <Right> hours as n needed for Cancer moderate Center pain for up to 30 days. HYDROcodone 2021-06- No Small cell 1{tbl} Take 1 Univers -acetaminop 2-02 28- carcinoma, tablet by ity of hen (alike) 00:00: 05:59 [place]OS of mouth [place] [...] (AUGMENTIN) 00 :00 upper lobe, by mouth MD 875 mg-125 lung twice Anderso mg per [...] (AUGMENTIN) 00 :00 upper lobe, by mouth MD 875 mg-125 lung twice Anderso mg per <Right> daily for n tablet 10 days. [facility] amoxicillin 2021-06- No Small cell 875mg Take 1 Univers -clavulanat -06-18 carcinoma, tablet ity of e 00:00: 05:59 NOS of (875 mg) [place] (AUGMENTIN) 00 :00 upper lobe, by mouth 875 mg-125 lung twice Anderso mg per <Right> daily for n tablet 10 days. [facility] amoxicillin 2021-06- Small cell 875mg Take 1 Univers -clavulanat 08-08 12-20 carcinoma, tablet ity of e 00:00: 05:59 NOS of (875 mg) [place] (AUGMENTIN) 00 :00 upper lobe, by mouth 875 mg-125 lung twice Anderso mg per <Right> daily for n [facility] Yes 5mg Take 1 Univer s (PROAMATINE 1-14 tablet (5 ity of ) 5 mg 00:00: mg) by [place] tablet 00 mouth MD twice Anders[facility]. [facility] Yes 5mg Take 1 Univer s (PROAMATINE 1-14 tablet (5 ity of ) 5 mg 00:00: mg) by [place] tablet 00 mouth MD twice Anderso daily. [facility] Yes 5mg Take 1 Univer s (PROAMATINE 1-14 tablet (5 ity of ) 5 mg 00:00: mg) by [place] tablet 00 mouth MD twice Anderso daily. [facility] midodrine 2021-06 Yes 5mg Take 1 Univer s (PROAMATINE 1-14 tablet (5 ity of ) 5 mg 00:00: mg) by [place] tablet 00 mouth MD twice Anderso daily. [facility] midodrine 2021-06 Yes 5mg Take 1 Univer s (PROAMATINE 1-14 tablet (5 ity of ) 5 mg 00:00: mg) by [place] tablet 00 mouth MD twice Anderso daily. [facility] midodrine 2021-06 Yes 5mg Take 1 Univer s (PROAMATINE 1-14 tablet (5 ity of ) 5 mg 00:00: mg) by [place] tablet 00 mouth MD twice [place] daily. [facility] Yes 5mg Take 1 Univer s (PROAMATINE 1-14 tablet (5 ity of ) 5 mg 00:00: mg) by [place] tablet 00 mouth MD twice Anderso daily. [facility] nystatin 2021-06 Yes [id number] Take 5 mL U nivers (MYCOSTATIN 1-03 (500,000 ity of ) 100,000 00:00: Units) by [place] units/mL 00 mouth MD suspension every 8 Bakari o (eight) n hours. [facility] nystatin 2021-06 Yes [id number] Take 5 mL U nivers (MYCOSTATIN 1-03 [...] mg 00:00: due to a mg) by [place] tablet 00 general mouth MD medical every 6 Anderso condition (six) n hours as Cancer needed for Center non-violen t agitation (anxiety sleep). QUEtiapine 2021-0 Yes Anxiety 25mg Take 1 Un yakov (SEROquel) - disorder tablet (25 ity of 25 mg 00:00: due to a mg) by [place] tablet 00 general mouth [place] medical every 6 Anderso condition (six) n hours as Cancer needed for Center non-violen t agitation (anxiety sleep). QUEtiapine 2021-0 Yes Anxiety 25mg Take 1 Un yakov (SEROquel) 12-28 disorder tablet (25 ity of 25 mg 00:00: due to a mg) by [place] tablet 00 general mouth [place] medical every 6 Anderso condition (six) n hours as Cancer needed for Center non-violen t agitation (anxiety sleep). QUEtiapine 2021-0 Yes Anxiety 25mg Take 1 Un yakov (SEROquel) 12-28 disorder tablet (25 ity of 25 mg 00:00: due to a mg) by [place] tablet 00 [facility] medical every 6 Anderso condition (six) n hours as Cancer needed for Center non-violen t agitation (anxiety sleep). QUEtiapine 2021-0 Yes Anxiety 25mg Take 1 Un yakov (SEROquel) 12-28 disorder tablet (25 ity of 25 mg 00:00: due to a mg) by [place] tablet 00 [facility] medical every 6 Anderso condition (six) n hours as Cancer needed for Center non-violen t agitation (anxiety sleep). QUEtiapine 2021-0 Yes Anxiety 25mg Take 1 Un yakvo (SEROquel) - disorder tablet (25 ity of 25 mg 00:00: due to a mg) by [place] tablet 00 general mouth [place] medical every 6 Anderso condition (six) n hours as Cancer needed for Center non-violen t agitation (anxiety sleep). QUEtiapine 2021-0 Yes Anxiety 25mg Take 1 Un yakov (SEROquel) - disorder tablet (25 ity of 25 mg 00:00: due to a mg) by [place] tablet 00 general mouth [place] medical every 6 Anderso condition (six) n hours as Cancer needed for Center non-violen t agitation (anxiety sleep). QUEtiapine 2021-0 Yes Anxiety 25mg Take 1 Un yakov [...] not by mouth MD tablet otherwise daily. [place] o specified n Cancer Center levoFLOXaci 2021-0 [...] Bakari o specified n Cancer Center levoFLOXaci 0 Yes Upper 500mg Take 1 Un yakov n 5-06 respiratory tablet ity of (Levaquin) 00:00: infection, (500 mg) [place] 500 mg 00 not by mouth MD tablet otherwise daily. Bakari o specified n Cancer Center levoFLOXaci 0 Yes Upper 500mg Take 1 Un yakov n 5-06 respiratory tablet ity of (Levaquin) 00:00: infection, (500 mg) [place] 500 mg 00 not by mouth MD tablet otherwise daily. [place] o specified n Cancer Center levoFLOXaci 0 Yes Upper 500mg Take 1 Un yakov n 5-06 respiratory tablet ity of (Levaquin) 00:00: infection, (500 mg) [place] 500 mg 00 not by mouth MD tablet otherwise daily. Bakari o specified n Cancer Center levoFLOXaci 0 Yes Upper 500mg Take 1 Un yakov n 5-06 respiratory tablet ity of (Levaquin) 00:00: infection, (500 mg) [place] 500 mg 00 not by mouth MD tablet otherwise daily. Bak[place] o specified n Cancer Center levoFLOXaci 0 Yes Upper 500mg Take 1 Un yakov n 5-06 respiratory tablet ity of (Levaquin) 00:00: infection, (500 mg) [place] 500 mg 00 not by mouth MD tablet otherwise daily. Bak[place] o specified n Cancer Center levoFLOXaci 0 Yes Upper 500mg Take 1 Un yakov [...] Anderso 4 days. n Cancer Center fluconazole 2021-0 2021- No Candidal 200mg Take 1 Univers [...] 2021- No 12.5mg Take 12.5 Univers e - 04-27 mg by ity of (PHENERGAN) 18:27: 00:00 [place] 12.5 mg 03 :00 every 6 MD tablet (six) Anderso hours as n needed. Cancer [place] aspirin 81 2021- No 81mg Take 81 mg Univers mg EC 10-24 04-27 by mouth ity of tablet 18:27: 00:00 [place] 03 [place]00 [place] Dill [facility] promethazin 2021- No 12.5mg Take 12.5 Univers e - 04-27 mg by ity of (PHENERGAN) 18:27: 00:00 [place] 12.5 mg 03 :00 every 6 MD tablet (six) Anderso hours as n needed. Cancer Center aspirin 81 2021-2021- No 81mg Take 81 mg Univers mg EC 4- 04-27 by mouth ity of tablet 18:27: 00:00 [place] 03 [place]00 [place] Fuentes [facility]immerman [facility] 2021- No 12.5mg Take 12.5 Univers e 4-27 -27 mg by ity of (PHENERGAN) 18:27: 00:00 mouth [place] 12.5 mg 03 :00 every 6 MD tablet (six) [place] hours as n needed. Cancer Center aspirin 81 2021-2021- No 81mg Take 81 mg Univers mg EC 4-24 10-27 by mouth ity of tablet 18:27: 00:00 [place] 03 [place]00 [place] Fuentes zimmerman [facility] 2021- No 12.5mg Take 12.5 Univers e 4-24 10-27 mg by ity of (PHENERGAN) 18:27: 00:00 mouth [place] 12.5 mg 03 :00 every 6 MD tablet (six) [place] hours as n needed. Cancer Center aspirin 81 2021-2021- No 81mg Take 81 mg Univers mg EC - 04-27 by mouth ity of tablet 18:27: 00:00 [place] 03 [place]00 [place] Fuentes [facility]immerman [facility] 2021- No 12.5mg Take 12.5 Univers e 4-24 10-27 mg by ity of (PHENERGAN) 18:27: 00:00 mouth [place] 12.5 mg 03 :00 every 6 MD tablet (six) [place] hours as n needed. Cancer Center aspirin 81 2021-2021- No 81mg Take 81 mg Univers mg EC 4-24 10-27 by mouth ity of tablet 18:27: 00:00 [place]. [place] 03 [place]00 [place] Fuentes [facility]immerman [facility] 2021- No 12.5mg Take 12.5 Univers e [...] promethazin No 12.5mg Take 12.5 Univers e 10-24-27 mg by ity of (PHENERGAN) 18:27: 00:00 mouth [place] 12.5 mg 03 :00 every 6 tablet (six) Anderso hours as n needed. Cancer Center aspirin 81 0 2021- No 81mg Take 81 mg Univers mg EC 10-24- by mouth ity of tablet 18:27: 00:00 as needed. [place] 03 :00 MD Fuentes zimmerman [facility] atorvastati Yes 40mg Take 40 mg Univers n (LIPITOR) 4-27 by mouth ity of 40 mg 18:26: daily. 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 [facility] Inhale by U nivers m-vilantero 27 mouth. ity of L 62.5-25 18:26: [place] mcg/actuati 55 MD on dsdv [facility] megestrol Yes 400mg Give 400 Uni vers (MEGACE) 40 4-27 mg per ity of mg/mL 18:26: G-tube. [place] suspension 55 [facility] atorvastati Yes 40mg Take 40 mg Univers n (LIPITOR) 4-27 by mouth ity of 40 mg 18:26: daily. 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 ity of L 62.5-25 18:26: [place] mcg/actuati 55 [facility] Yes 400mg Give 400 Uni vers (MEGACE) 40 4-27 mg per ity of mg/mL 18:26: G-tube. [place] suspension 55 [facility] atorvastati Yes 40mg Take 40 mg Univers n (LIPITOR) 27 by mouth ity of 40 mg 18:26: daily. [place] tablet 55 [facility] budesonide Yes severe .25mg Inhale Un yakov (PULMICORT) 10-24 chronic 0.25 mg by ity of 0.25 mg/2 18:26: obstructive nebulizati [place] mL 55 pulmonary on daily. nebulizer disease [place] solution [facility] umeclidiniu Yes Inhale by U nivers m-vilantero - mouth. ity of L 62.5-25 18:26: [place] mcg/actuati 55 MD on dsdv [facility] megestrol Yes 400mg Give 400 Uni vers (MEGACE) 40 4-27 mg per ity of mg/mL 18:26: G-tube. [place] suspension 55 [facility] ipratropium Yes Pneumocysto 3mL Inhale 1 Univers -albuterol 10-24 sis vial (3 ity of (DUO-NEB) 00:00: pneumonia mL) by [place] 0.5 mg-2.5 00 nebulizati MD mg/3 mL on every 6 [place]ari o nebulizer (six) n solution hours as Cancer needed for Center wheezing or shortness of breath. aluminum-ma Yes Gastroesoph 15mL Take 15 mL Univers gnesium 427 ageal by mouth ity of hydroxide-s 00:00: [...] n or Center mL heartburn. suspension guaiFENesin 2022-0 Yes Pneumonia 600mg Take 1 Univers (MUCINEX) [...] mg 00:00: with mixed (75 mg) by [place] tablet 00 anxiety and mouth at MD [...] Gastroesoph 1000mg Take 10 mL Univers (CARAFATE) - ageal (1,000 mg) it y of 100 mg/mL 00:00: reflux by mouth 4 [place] suspension 00 disease (four) MD times a Anderso day before n meals and Cancer nightly. Center QUEtiapine Yes Adjustment 75mg Take 3 Univers (SEROquel) 10-24 disorder tablets it y of 25 mg 00:00: with mixed (75 mg) by [place] tablet 00 anxiety and mouth at MD [...] Gastroesoph 1000mg Take 10 mL Univers (CARAFATE) 4-27 ageal (1,000 mg) it y of 100 [...] [place] tablet 00 anxiety and mouth at depressed bedtime. Bakari o mood n Cancer [...] 4 [place] imethicone 00 disease (four) (MAALOX hours as [...] day before n meals and Cancer nightly. [place] QUEtiapine Yes Adjustment 75mg Take 3 Univers [...] mg 00:00: with mixed (75 mg) by [place] tablet 00 anxiety and mouth at MD [...] mg 00:00: with mixed (75 mg) by [place] tablet 00 anxiety and mouth at MD depressed bedtime. Bakari o mood n Cancer Center Ventolin Yes Pneumonia 1{puff} Inhale 1 Univers HFA 90 427 due to puff by ity of mcg/actuati [...] day before n meals and Cancer nightly. [place] QUEtiapine Yes Adjustment 75mg Take 3 Univers [...] wheezing Center or shortness of breath. amoxicillin Upper 875mg Take 1 U nivers -clavulanat [...] Upper 875mg Take 1 U nivers -clavulanat 4-10-24 respiratory tablet ity of e 00:00: 00:00 [...] Decompensat 875mg Take 1 Univers -clavulanat 4-13 14 ed COPD tablet it y of e [...] Cancer mild pain Center or moderate pain (NILA NewberryN). acetaminoph Yes Neoplasm 1{tbl} Take 1 Univers [...] Cancer mild pain Center or moderate pain (NILA NewberryN). acetaminoph 0 Yes Neoplasm 1{tbl} Take 1 Univers en-codeine 3-11 related tablet by i ty of (TYLENOL 00:00: pain mouth [place] #3) 300 00 (acute) every 6 MD mg-30 mg (chronic) (six) [place] so tablet hours as n needed for Cancer mild pain Center or moderate pain (Marj Garza, FUSE COILER). acetaminoph 0 Yes Neoplasm 1{tbl} Take 1 Univers en-codeine 3-11 related tablet by i ty of (TYLENOL 00:00: pain mouth [place] #3) 300 00 (acute) every 6 MD mg-30 mg (chronic) (six) [place] so tablet hours as n needed for Cancer mild pain Center or moderate pain (Marj Garza, FUSE COILER). acetaminoph Yes Neoplasm 1{tbl} Take 1 Univers en-codeine 3-11 related tablet by i ty of (TYLENOL 00:00: pain mouth [place] #3) 300 00 (acute) every 6 MD mg-30 mg (chronic) (six) [place] so tablet hours as n needed for Cancer mild pain Center or moderate pain (Marj Garza, FUSE COILER). acetaminoph Yes Neoplasm 1{tbl} Take 1 Univers en-codeine 3-11 related tablet by i ty of (TYLENOL 00:00: pain mouth [place] #3) 300 00 (acute) every 6 MD mg-30 mg (chronic) (six) [place] so tablet hours as n needed for Cancer mild pain Center or moderate pain (Marj Garza, FUSE COILER). acetaminoph 0 Yes Neoplasm 1{tbl} Take 1 Univers en-codeine 3-11 related tablet by i ty of (TYLENOL 00:00: pain mouth [place] #3) 300 00 (acute) every 6 MD mg-30 mg (chronic) (six) [place] so tablet hours as n needed for Cancer mild pain Center or moderate pain (Marj Garza, FUSE COILER). QUEtiapine 2021-0 2021- No Anxiety 25mg Take 1 U nivers (SEROquel) 3-11 -04 disorder tablet (25 ity of 25 mg [...] Center non-violen t agitation. amoxicillin 2021- No [facility] 875mg Take 1 Univers -clavulanat 09-0715 acquired tablet i ty of e 00:00: 04:59 pneumonia (875 mg) [place] (AUGMENTIN) 00 :00 by mouth 875 mg-125 every 12 [place] so mg per (twelve) n tablet hours for Cancer 3 days. [place] amoxicillin 2021- No [facility] 875mg Take 1 Univers -clavulanat 09-07 acquired tablet i ty of e 00:00: 04:59 pneumonia (875 mg) [place] as (AUGMENTIN) 00 :00 by mouth 875 mg-125 every 12 [place] so mg per (twelve) n tablet hours for Cancer 3 days. [place] amoxicillin 2021- No [facility] 875mg Take 1 Univers -clavulanat 09-07-15 acquired tablet i ty of e 00:00: 04:59 pneumonia (875 mg) [place] as (AUGMENTIN) 00 :00 by mouth 875 mg-125 every 12 [place] so mg per (twelve) n tablet hours for Cancer 3 days. [place] amoxicillin 2021- No [facility] 875mg Take 1 Univers -clavulanat 09-07 acquired tablet i ty of e 00:00: 04:59 pneumonia (875 mg) [place] as (AUGMENTIN) 00 :00 by mouth MD 875 mg-125 every 12 [place] so mg per (twelve) n tablet hours for Cancer 3 days. [place] amoxicillin 2021- No [facility] 875mg Take 1 Univers -clavulanat 09-07 acquired tablet i ty of e 00:00: 04:59 pneumonia (875 mg) [place] as (AUGMENTIN) 00 :00 by mouth MD 875 mg-125 every 12 [place] so mg per (twelve) n tablet hours for Cancer 3 days. [place] amoxicillin 2021- No [facility] 875mg Take 1 Univers -clavulanat 09-07 acquired tablet i ty of e 00:00: 00:00 pneumonia (875 mg) [place] as (AUGMENTIN) 00 :00 by mouth MD 875 mg-125 every 12 [place] so mg per (twelve) n tablet hours for Cancer 3 days. [place] amoxicillin [id number] No [facility] 875mg Take 1 Univers -clavulanat 09-07 acquired tablet i ty of e 00:00: 00:00 pneumonia (875 mg) [place] as (AUGMENTIN) 00 :00 by mouth MD 875 mg-125 every 12 [place] so mg per (twelve) n tablet hours for Cancer 3 days. [place] amoxicillin 2021- No [facility] 875mg Take 1 Univers -clavulanat 09-07 acquired tablet i ty of e 00:00: 00:00 pneumonia (875 mg) [place] as (AUGMENTIN) 00 :00 by mouth MD 875 mg-125 every 12 [place] so mg per (twelve) n tablet hours for Cancer 3 days. [place] amoxicillin 2021- No [facility] 875mg Take 1 Univers -clavulanat 09-07 acquired tablet i ty of e 00:00: 00:00 pneumonia (875 mg) [place] as (AUGMENTIN) 00 :00 by mouth MD 875 mg-125 every 12 [place] so mg per (twelve) n tablet hours for Cancer 3 days. [place] amoxicillin [id number]- [facility] 875mg Take 1 Univers -clavulanat 09-07 acquired tablet i ty of e 00:00: 00:00 pneumonia (875 mg) [place] as (AUGMENTIN) 00 :00 by mouth MD 875 mg-125 every 12 [place] so mg per (twelve) n tablet hours for Cancer 3 days. [place] amoxicillin 2021 No [facility] 875mg Take 1 Univers -clavulanat 09-07 acquired tablet i ty of e 00:00: 00:00 pneumonia (875 mg) [place] as (AUGMENTIN) 00 :00 by mouth MD 875 mg-125 every 12 [place] so mg per (twelve) n tablet hours for Cancer 3 days. [place] amoxicillin 2021[facility] 8[facility] Take 1 Univers -clavulanat 09-07 acquired tablet i ty of e 00:00: 00:00 pneumonia (875 mg) [place] as (AUGMENTIN) 00 :00 by mouth MD 875 mg-125 every 12 [place] so mg per (twelve) n tablet hours for Cancer 3 days. [place] amoxicillin [id number] 875mg Take 1 Univers -clavulanat 09-07 acquired tablet i ty of e 00:00: 00:00 pneumonia (875 mg) [place] as (AUGMENTIN) 00 :00 by mouth MD 875 mg-125 every 12 [place] so mg per (twelve) n tablet hours for Cancer 3 days. [place] amoxicillin 2021[facility] 875[facility] Take 1 Univers -clavulanat 09-07 acquired tablet i ty of e 00:00: 00:00 pneumonia (875 mg) [place] (AUGMENTIN) 00 :00 by mouth MD 875 mg-125 every 12 [place] so mg per (twelve) n tablet hours for Cancer 3 days. [place] amoxicillin 2021 No [facility] 875mg Take 1 Univers -clavulanat 309-07 acquired tablet i ty of e 00:00: 00:00 pneumonia (875 mg) [place] (AUGMENTIN) 00 :00 by mouth MD 875 mg-125 every 12 [place] so mg per (twelve) n tablet hours for Cancer 3 days. [place] HYDROcodone [id number] No Adjustment 1{tbl} Take 1 Univers -acetaminop 08-18 disorder tablet by celia ([place]) 00:00: 00:00 with mixed mouth [place] 5 mg-325 mg 00 :00 anxiety and every 6 MD per tablet depressed (six) And erso mood hours as n needed for Cancer moderate Center pain for up to 30 days. HYDROcodone 2021- No Adjustment 1{tbl} Take 1 Univers -acetaminop 2-19 -11 disorder tablet by ity of hen (alike) 00:00: 00:00 with mixed mouth [place] 5 mg-325 mg 00 :00 anxiety and every 6 MD per tablet depressed (six) And erso mood hours as n needed for Cancer moderate Center pain for up to 30 days. HYDROcodone 2021- No Adjustment 1{tbl} Take 1 Univers -acetaminop 2-19 -11 disorder tablet by ity of hen (alike) 00:00: 00:00 with mixed mouth [place] 5 mg-325 mg 00 :00 anxiety and every 6 MD per tablet depressed (six) And erso mood hours as n needed for Cancer moderate Center pain for up to 30 days. HYDROcodone 2021- No Adjustment 1{tbl} Take 1 Univers -acetaminop 2-19 -11 disorder tablet by ity of hen (alike) 00:00: 00:00 with mixed mouth [place] 5 mg-325 mg 00 :00 anxiety and every 6 MD per tablet depressed (six) And erso mood hours as n needed for Cancer moderate Center pain for up to 30 days. HYDROcodone 2021- No Adjustment 1{tbl} Take 1 Univers -acetaminop 2-19 -11 disorder tablet by ity of [email or web address] (alike) 00:00: 00:00 with mixed mouth [place] 5 [...] tablet 00 :00 anxiety [place] mouth [place] depressed bedtime. [facility] QUEtiapine 2021- No Adjustment 75mg Take 3 Univers (SEROquel) 08-14 disorder tablets i ty of 25 mg 00:00: 00:00 with mixed (75 mg) by [place] tablet 00 :00 anxiety [place] mouth [place] depressed bedtime. [facility] QUEtiapine 2021- No Adjustment 75mg Take 3 Univers (SEROquel) 08-14 disorder tablets i ty of 25 mg 00:00: 00:00 with mixed (75 mg) by [place] tablet 00 :00 anxiety and mouth at [place] depressed bedtime. [facility] QUEtiapine 2021- No Adjustment 75mg Take 3 Univers (SEROquel) 08-14 disorder tablets i ty of 25 mg 00:00: 00:00 with mixed (75 mg) by [place] tablet 00 :00 anxiety and mouth at [place] depressed bedtime. [facility] QUEtiapine 2021- No Adjustment 75mg Take 3 Univers (SEROquel) 08-14 disorder tablets i ty of 25 mg 00:00: 00:00 with mixed (75 mg) by [place] tablet 00 :00 anxiety and mouth at [place] depressed bedtime. [facility] QUEtiapine 2021- No Adjustment 75mg Take 3 Univers (SEROquel) 08-14 disorder tablets i ty of 25 mg 00:00: 00:00 with mixed (75 mg) by [place] tablet 00 :00 anxiety and mouth at [place] depressed bedtime. [facility] HYDROcodone 2021- No Adjustment 1{tbl} Take 1 Univers -acetaminop 08-14 disorder tablet by celia ([place]) 00:00: 00:00 with mixed mouth [place] 5 mg-325 mg 00 :00 anxiety and every 6 MD per tablet depressed (six) And erso mood hours as n needed for Cancer moderate Center pain for up to 30 days. HYDROcodone 2021- No Adjustment 1{tbl} Take 1 Univers -acetaminop 2-15 -19 disorder tablet by ity of hen ([place]) 00:00: 00:00 with mixed mouth [place] 5 mg-325 mg 00 :00 anxiety and every 6 MD per tablet depressed (six) And erso mood hours as n needed for Cancer moderate Center pain for up to 30 days. HYDROcodone 2021- No Adjustment 1{tbl} Take 1 Univers -acetaminop 2-15 -19 disorder tablet by ity of hen ([place]) 00:00: 00:00 with mixed mouth [place] 5 mg-325 mg 00 :00 anxiety and every 6 MD per tablet depressed (six) And erso mood hours as n needed for Cancer moderate Center pain for up to 30 days. HYDROcodone 2021- No Adjustment 1{tbl} Take 1 Univers -acetaminop 2-15 -19 disorder tablet by ity of hen ([place]) 00:00: 00:00 with mixed mouth [place] 5 mg-325 mg 00 :00 anxiety and every 6 MD per tablet depressed (six) And erso mood hours as n needed for Cancer moderate Center pain for up to 30 days. 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 00:00: NOS of MG) BY [place] tablet 00 upper lobe, MOUTH MD lung TWICE [place] <Right> [facility]ILY [facility]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, TABLET(10 ity of 10 mg 00:00: NOS of MG) BY [place] tablet 00 upper lobe, MOUTH MD lung TWICE [place] <Right> [facility]ILY [facility]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, TABLET(10 ity of 10 mg 00:00: NOS of MG) BY [place] tablet 00 upper lobe, MOUTH MD lung TWICE [place] <Right> [facility]ILY [facility]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, TABLET(10 ity of 10 mg 00:00: NOS of MG) BY [place] tablet 00 upper lobe, MOUTH MD lung TWICE [place] <Right> [facility] Small cell 5 mg a day Univers (Namenda) 2-14 -11 carcinoma, x 1 week, ity of 10 [...] 5 mg a day Univers (Namenda) 2-10 09-11 carcinoma, x 1 week, ity of 10 [...] ity of (PROTONIX) 00:00: respiratory MG) BY [place] 40 mg EC 00 tract MOUTH MD tablet DAILY [facility] pantoprazol Yes Aspiration TAKE 1 Univers e 1-28 into lower TABLET(40 ity of (PROTONIX) 00:00: respiratory MG) BY [place] 40 mg EC 00 tract MOUTH MD tablet DAILY [facility] pantoprazol Yes Aspiration TAKE 1 Univers e 1-28 into lower TABLET(40 ity of (PROTONIX) 00:00: respiratory MG) BY [place] 40 mg EC 00 tract MOUTH MD tablet DAILY [facility] pantoprazol Yes Aspiration TAKE 1 Univers e 1-28 into lower TABLET(40 ity of (PROTONIX) 00:00: respiratory MG) BY [place] 40 mg EC 00 tract MOUTH MD tablet DAILY [facility] pantoprazol Yes Aspiration TAKE 1 Univers e 1-28 into lower TABLET(40 ity of (PROTONIX) 00:00: respiratory MG) BY [place] 40 mg EC 00 tract MOUTH MD tablet DAILY [facility] pantoprazol Yes Aspiration TAKE 1 Univers e 1-28 into lower TABLET(40 ity of (PROTONIX) 00:00: respiratory MG) BY [place] 40 mg EC 00 tract MOUTH MD tablet DAILY [facility] pantoprazol Yes Aspiration TAKE 1 Univers e 1-28 into lower TABLET(40 ity of (PROTONIX) 00:00: respiratory MG) BY [place] 40 mg EC 00 tract MOUTH MD tablet DAILY [facility] pantoprazol Yes Aspiration TAKE 1 Univers e 1-28 into lower TABLET(40 ity of (PROTONIX) 00:00: respiratory MG) BY [place] 40 mg EC 00 tract MOUTH MD tablet DAILY [facility] pantoprazol Yes Aspiration TAKE 1 Univers e 1-28 into lower TABLET(40 ity of (PROTONIX) 00:00: respiratory MG) BY [place] 40 mg EC 00 tract MOUTH MD tablet DAILY [facility] pantoprazol Yes Aspiration TAKE 1 Univers e 1-28 into lower TABLET(40 ity of (PROTONIX) 00:00: respiratory MG) BY [place] 40 mg EC 00 tract MOUTH MD tablet DAILY [facility] QUEtiapine 2021- No Adjustment 75mg Take 3 Univers (SEROquel) 07-1115 disorder tablets i ty of 25 mg 00:00: 00:00 with mixed (75 mg) by [place] tablet 00 :00 anxiety and mouth at MD depressed bedtime. [place] [facility] QUEtiapine 2021- No Adjustment 75mg Take 3 Univers (SEROquel) 07-11 02-15 disorder tablets i ty of 25 mg 00:00: 00:00 with mixed (75 mg) by [place] tablet 00 :00 anxiety and mouth at MD depressed bedtime. [facility] QUEtiapine 2021- No Adjustment 75mg Take 3 Univers (SEROquel) 07-11 disorder tablets i ty of 25 mg 00:00: 00:00 with mixed (75 mg) by [place] tablet 00 :00 anxiety and mouth at MD depressed bedtime. [facility] QUEtiapine 2021- No Adjustment 75mg Take 3 Univers (SEROquel) 07-11 disorder tablets i ty of 25 mg 00:00: 00:00 with mixed (75 mg) by [place] tablet 00 :00 anxiety and mouth at MD depressed bedtime. [facility] pantoprazol 2021- No [place] 40mg Take 1 Univers e 07-11 into lower tablet (40 it y of (PROTONIX) 00:00: 00:00 respiratory mg) by [place] 40 mg EC 00 :00 tract mouth MD tablet daily. [facility] pantoprazol 2021- No Aspiration 40mg Take 1 Univers e 07-11 into lower tablet (40 it y of (PROTONIX) 00:00: 00:00 respiratory mg) by [place] 40 mg EC 00 :00 tract mouth MD tablet daily. [facility] pantoprazol 2021- No Aspiration 40mg Take 1 Univers e 07-11 into lower tablet (40 it y of (PROTONIX) 00:00: 00:00 respiratory mg) by [place] 40 mg EC 00 :00 tract mouth MD tablet daily. [facility] pantoprazol 2021- No Aspiration 40mg Take 1 Univers e 07-11 into lower tablet (40 it y of (PROTONIX) 00:00: 00:00 respiratory mg) by [place] 40 mg EC 00 :00 tract mouth MD tablet daily. [facility] OLANZapine 2021- No Insomnia, 2.5mg Take 1 Univers (ZyPREXA) 07-02 03-11 not tablet ity of 2.5 mg 00:00: [...] tablet hours as n needed Cancer (pain). [place] amoxicillin 2020-06- No Upper 875mg Take 1 U nivers -clavulanat -15 respiratory tablet ity of e 00:00: 00:00 infection, (875 mg) [place] (Augmentin) 00 :00 not by mouth MD 875 mg-125 otherwise twice And erso mg per specified daily. 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 [place] amoxicillin 2020-06- No Upper 875mg Take 1 U nivers -clavulanat -15 respiratory tablet ity of e 00:00: 00:00 infection, (875 mg) [place] (Augmentin) 00 :00 not by mouth MD 875 mg-125 otherwise twice And erso mg per specified daily. 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 [place] amoxicillin 2020-06- No Upper 875mg Take 1 U nivers -clavulanat -15 respiratory tablet ity of e 00:00: 00:00 infection, (875 mg) [place] (Augmentin) 00 :00 not by mouth MD 875 mg-125 otherwise twice And erso mg per specified daily. n tablet Cancer [facility] 2020-06- No Chronic 1{tbl} Take [...] Cancer needed for Center muscle spasms. OLANZapine 2020-06 No Insomnia, 2.5mg Take 1 Univers (ZyPREXA) 0-29 07-02 not tablet ity of 2.5 mg [...] No Muscle Take 1/2 Un yakov (LIORESAL) 0- 11-18 spasm of tablet (5 ity of 10 mg 00:00: 00:00 back mg) PO q12 [place] tablet 00 :00 PRN back spasm. [facility] baclofen 2020-06- No Muscle Take 1/2 Un [place] (LIORESAL) 0-27 11-18 spasm of tablet (5 ity of 10 mg 00:00: 00:00 back mg) PO q12 [place] tablet 00 :00 PRN back spasm. [facility] baclofen 2020-06- No Muscle Take 1/2 Un yakov (LIORESAL) 0-27 11-18 spasm of tablet (5 ity of 10 mg 00:00: 00:00 back mg) PO q12 [place] tablet 00 :00 PRN back spasm. [facility] OLANZapine 2020-06- No Adjustment [...] mg per specified daily. n tablet Cancer [place] amoxicillin 2020-06- No Upper 875mg Take 1 [...] mg 00:00: 00:00 NOS of MG) BY [place] tablet 00 :00 upper lobe, MOUTH MD lung TWICE Anderso <Right> DAILY [facility] 2020-06- No Small cell TAKE 1 Univers (NAMENDA) 008-13 carcinoma, TABLET(10 ity of 10 mg 00:00: 00:00 NOS of MG) BY [place] tablet 00 :00 upper lobe, MOUTH MD lung TWICE Anderso <Right> DAILY [facility] 2020-06- No Small cell TAKE 1 Univers (NAMENDA) 008-13 carcinoma, TABLET(10 ity of 10 mg 00:00: 00:00 NOS of MG) BY [place] tablet 00 :00 upper lobe, MOUTH MD lung TWICE Anderso <Right> DAILY [facility] 2020-06- No Small cell TAKE 1 Univers (NAMENDA) 008-13 carcinoma, TABLET(10 ity of 10 mg 00:00: 00:00 NOS of MG) BY [place] tablet 00 :00 upper lobe, MOUTH MD lung TWICE Anderso <Right> DAILY [facility] amoxicillin 2020-06- No Upper 875mg Take 1 U nivers -clavulanat 0-09 10-15 respiratory tablet ity of e 00:00: 00:00 infection, (875 mg) [place] (Augmentin) 00 :00 not by mouth 875 mg-125 otherwise twice And erso mg per specified daily. n tablet [facility] amoxicillin 2020-06 No Upper 875mg Take 1 U nivers -clavulanat 0-09 10-15 respiratory tablet ity of e 00:00: 00:00 infection, (875 mg) [place] (Augmentin) 00 :00 not by mouth 875 mg-125 otherwise twice And erso mg per specified daily. n tablet [facility] pantoprazol 2021- No Aspiration 40mg Take 1 Univers e 03-29 into lower tablet (40 it y of (PROTONIX) 00:00: 00:00 respiratory mg) by [place] 40 mg EC 00 :00 tract mouth tablet daily. Anderso [facility] pantoprazol 2021- No Aspiration 40mg Take 1 Univers e 03-29 into lower tablet (40 it y of (PROTONIX) 00:00: 00:00 respiratory mg) by [place] 40 mg EC 00 :00 tract mouth MD tablet daily. [facility] pantoprazol 2021- No Aspiration 40mg Take 1 Univers e 03-29 into lower tablet (40 it y of (PROTONIX) 00:00: 00:00 respiratory mg) by [place] 40 mg EC 00 :00 tract mouth MD tablet daily. [facility] baclofen 2020- No Muscle Take 1/2 Un y[place] (LIORESAL) 03-29 10-27 spasm of tablet (5 ity of 10 mg 00:00: 00:00 back mg) PO q12 [place] tablet 00 :00 PRN back MD spasm. [facility] baclofen 2020- No Muscle Take 1/2 Un [place] (LIORESAL) 03-29 10-27 spasm of tablet (5 ity of 10 mg 00:00: 00:00 back mg) PO q12 [place] tablet 00 :00 PRN back MD spasm. [facility] baclofen 2020- No Muscle Take 1/2 Un y[place] (LIORESAL) 03-29 10-27 spasm of tablet (5 ity of 10 mg 00:00: 00:00 back mg) PO q12 [place] tablet 00 :00 PRN back MD spasm. 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 [place] acetaminoph 2020- No Chronic 1{tbl} Take 1 [...] [place] tablet 00 :00 PRN back spasm. [facility] baclofen 2020- No Muscle Take 1/2 Un [place] (LIORESAL) 03-08 spasm of tablet (5 ity of 10 mg 00:00: 00:00 back mg) PO q12 [place] tablet 00 :00 PRN back spasm. [facility] baclofen 5 2020- No Muscle 5mg Take 5 mg Univers mg tab 03-08 spasm of by mouth ity of 00:00: 00:00 back every 12 [place] 00 :00 (twelve) MD hours. [facility] QUEtiapine 2021- No Aspiration 75mg 3 tablets Univers (SEROquel) 03-07 into lower (75 mg) by ity of 25 mg 00:00: 00:00 respiratory feeding [place] tablet 00 :00 tract tube route at [facility]. [facility] QUEtiapine 2021- No Aspiration 75mg 3 tablets Univers (SEROquel) 03-07 into lower (75 mg) by ity of 25 mg 00:00: 00:00 respiratory feeding [place] tablet 00 :00 tract tube route at [facility]. [facility] QUEtiapine 2021- No Aspiration 75mg 3 tablets Univers (SEROquel) 03-07 into lower (75 mg) by ity of 25 mg 00:00: 00:00 respiratory feeding [place] tablet 00 :00 tract tube route at [facility]. [facility] QUEtiapine 2020- No Aspiration 75mg 3 tablets Univers (SEROquel) 03-06 into lower (75 mg) by ity of 25 mg 00:00: 00:00 respiratory feeding [place] tablet 00 :00 tract tube route at [facility]. [facility] fluconazole 2020- No Acute 100mg Take 1 U nivers (DIFLUCAN) 03-0317 kidney tablet ity of 100 mg 00:00: [...] mouth MD right lung twice Anderso daily. 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 [facility] baclofen 5 2020- No Muscle 5mg Take 5 mg Univers mg tab 03-02 spasm of by mouth ity of 00:00: 00:00 back every 12 [place] 00 :00 (twelve) MD hours. Fuentes [facility] pantoprazol 2020- No Aspiration 40mg Take 1 Univers e 02-28 into lower tablet (40 it y of (PROTONIX) 00:00: 00:00 respiratory mg) by [place] 40 mg EC 00 :00 tract mouth MD tablet daily. [facility] pantoprazol 2020- Aspiration 40mg Take 1 Univers e 02-28 into lower tablet (40 it y of (PROTONIX) 00:00: 00:00 respiratory mg) by [place] 40 EC 00 :00 tract mouth MD tablet daily. [facility] loperamide Yes Aspiration 2mg Take 1 Univers (IMODIUM) 2 8-31 into lower capsule (2 ity of mg capsule 00:00: respiratory mg) by [place] [address] tract mouth every 8 Anderso (eight) n hours as Cancer needed for Center diarrhea. Buy over the counter loperamide Yes Aspiration 2mg Take 1 Univers (IMODIUM) 2 8-31 into lower capsule (2 ity of mg capsule 00:00: respiratory mg) by [place] [address] tract mouth every 8 Anderso (eight) n hours as Cancer needed for Center diarrhea. Buy over the counter loperamide Yes Aspiration 2mg Take 1 Univers (IMODIUM) 2 8-31 into lower capsule (2 ity of mg capsule 00:00: respiratory mg) by [place] [address] tract mouth every 8 Anderso (eight) n hours as Cancer needed for Center diarrhea. Buy over the counter loperamide Yes Aspiration 2mg Take 1 Univers (IMODIUM) 2 8-31 into lower capsule (2 ity of mg capsule 00:00: respiratory mg) by [place] [address] tract mouth every 8 Anderso (eight) n hours as Cancer needed for Center diarrhea. Buy over the counter loperamide Yes Aspiration 2mg Take 1 Univers (IMODIUM) 2 8-31 into lower capsule (2 ity of mg capsule 00:00: respiratory mg) by [place] [address] tract mouth every 8 Anderso (eight) n hours as Cancer needed for Center diarrhea. Buy over the counter loperamide Yes Aspiration 2mg Take 1 Univers (IMODIUM) 2 8-31 into lower capsule (2 ity of mg capsule 00:00: respiratory mg) by [place] [address] tract mouth every 8 Anderso (eight) n hours as Cancer needed for Center diarrhea. Buy over the counter loperamide Yes Aspiration 2mg Take 1 Univers (IMODIUM) 2 8-31 into lower capsule (2 ity of mg capsule 00:00: respiratory mg) by [place] [address] tract mouth MD every 8 [place]o (eight) n hours as Cancer needed for Center diarrhea. Buy over the counter loperamide Yes Aspiration 2mg Take 1 Univers (IMODIUM) 2 8-31 into lower capsule (2 ity of mg capsule 00:00: respiratory mg) by [place] [address] tract mouth MD every 8 Anderso (eight) n hours as Cancer needed for Center diarrhea. Buy over the counter loperamide Yes Aspiration 2mg Take 1 Univers (IMODIUM) 2 8-31 into lower capsule (2 ity of mg capsule 00:00: respiratory mg) by [place] [address] tract mouth MD every 8 Anderso (eight) n hours as Cancer needed for Center diarrhea. Buy over the counter loperamide Yes Aspiration 2mg Take 1 Univers (IMODIUM) 2 8-31 into lower capsule (2 ity of mg capsule 00:00: respiratory mg) by [place] [address] tract mouth MD every 8 Anderso (eight) [...] No Aspiration 1{appli Apply 1 Univers mucosal 02-27-27 into lower cation} applicatio ity of (BIOTENE) 00:00: 00:00 respiratory n to the [place] gel 00 :00 tract mouth or MD throat as [place] needed for n dry mouth. Cancer Buy over Center the counter. use as directed oral 2021- No Aspiration 1{appli Apply 1 Univers mucosal 02-2727 into lower cation} applicatio ity of (BIOTENE) 00:00: 00:00 respiratory n to the [place] gel 00 :00 tract mouth or MD throat as [place]o needed for n dry mouth. Cancer Buy over Center the counter. use as directed oral 2021- No Aspiration 1{appli Apply 1 Univers mucosal 02-2727 into lower cation} applicatio ity of (BIOTENE) 00:00: 00:00 respiratory n to the [place] gel 00 :00 tract mouth or MD throat as [place]o needed for n dry mouth. Cancer Buy over Center the counter. use as directed oral 2021- No Aspiration 1{appli Apply 1 Univers mucosal 02-2727 into lower cation} applicatio ity of (BIOTENE) 00:00: 00:00 respiratory n to the [place] gel 00 :00 tract mouth or MD throat as Anderso needed for n dry mouth. Cancer Buy over Center the counter. use as directed oral 2021- No Aspiration 1{appli Apply 1 Univers mucosal 02-2727 into lower cation} applicatio ity of (BIOTENE) [...] 12 [place]o syringe pulmonale (twelve) n hours. [facility] enoxaparin 2021- No Other 50mg Inject 0.5 Univers (Lovenox) 02-27-11 pulmonary mL (50 mg) ity of 60 mg/0.6 00:00: 00:00 embolism under the [place] mL 00 :00 with acute skin every MD prefilled cor 12 [place]o syringe pulmonale (twelve) n hours. [facility] enoxaparin 2021- No Other 50mg Inject 0.5 Univers (Lovenox) 02-27 pulmonary mL (50 mg) ity of 60 mg/0.6 00:00: 00:00 embolism under the [place] mL 00 :00 with acute skin every MD prefilled cor 12 Anderso syringe pulmonale (twelve) n hours. [facility] enoxaparin 2021- No Other 50mg Inject 0.5 Univers (Lovenox) 02-27 pulmonary mL (50 mg) ity of 60 mg/0.6 00:00: 00:00 embolism under the [place] mL 00 :00 with acute skin every MD prefilled cor 12 Anderso syringe pulmonale (twelve) n hours. [facility] enoxaparin 2021- No Other 50mg Inject 0.5 [...] tablet hours as n needed Cancer (pain). [facility] Yes Aspiration 1{tbl} Take 1 Univers n tab 7-23 into lower tablet by ity of tablet 00:00: respiratory mouth [place] 00 tract daily. MD Fuentes zimmerman [facility] Yes Aspiration 1{tbl} Take 1 Univers n tab 7-23 into lower tablet by ity of tablet 00:00: respiratory mouth [place] 00 tract daily. MD Fuentes zimmerman [facility] Yes Aspiration 1{tbl} Take 1 Univers n tab 7-23 into lower tablet by ity of tablet 00:00: respiratory mouth [place] 00 tract daily. MD Fuentes zimmerman [place] Yes Aspiration 1{tbl} Take 1 [facility] n tab 7-23 into lower tablet by ity of tablet 00:00: respiratory mouth [place] 00 tract daily. MD Fuentes zimmerman [place] Yes Aspiration 1{tbl} Take 1 Univers n tab 7-23 into lower tablet by ity of tablet 00:00: respiratory mouth [place] 00 tract daily. MD Fuentes zimmerman [place] Yes Aspiration 1{tbl} Take 1 [facility] n tab 7-23 into lower tablet by ity of tablet 00:00: respiratory mouth [place] 00 tract daily. MD Fuentes zimmerman [place] Yes Aspiration 1{tbl} Take 1 Univers n tab 7-23 into lower tablet by ity of tablet 00:00: respiratory mouth [place] 00 tract daily. MD Fuentes zimmerman [place] Yes Aspiration 1{tbl} Take 1 [facility] n tab 7-23 into lower tablet by ity of tablet 00:00: respiratory mouth [place] 00 tract daily. MD Fuentes zimmerman [place] Yes Aspiration 1{tbl} Take 1 Univers n tab 7-23 into lower tablet by ity of tablet 00:00: respiratory mouth [place] 00 tract daily. MD Fuentes zimmerman [place] Yes Aspiration 1{tbl} Take 1 Univers n tab 7-23 into lower tablet by ity of tablet 00:00: respiratory mouth [place] 00 tract daily. MD Anderso [facility] 2021- No 1{tbl} Take 1 Unive rs sulfate 325 7-22 05-17 tablet by it y of (65 FE) MG 00:00: 00:00 mouth [place] EC tablet 00 :00 daily. MD Fuentes zimmerman [facility] 2021- No 1{tbl} Take 1 Unive rs sulfate 325 7-22 05-17 tablet by it y of (65 FE) MG 00:00: 00:00 mouth [place] EC tablet 00 :00 daily. MD Fuentes zimmerman [facility] 2021- No 1{tbl} Take 1 Unive rs sulfate 325 7-22 05-17 tablet by it y of (65 FE) MG 00:00: 00:00 mouth [place] EC tablet 00 :00 daily. MD Fuentes zimmerman [facility] 2021- No 1{tbl} Take 1 Unive rs sulfate 325 7-22 05-17 tablet by it y of (65 FE) MG 00:00: 00:00 mouth [place] EC tablet 00 :00 daily. MD Fuentes zimmerman [facility] 2021- No 1{tbl} Take 1 Unive rs sulfate 325 7-22 05-17 tablet by it y of (65 FE) MG 00:00: 00:00 mouth [place] EC tablet 00 :00 daily. MD Fuentes zimmerman [facility] 2021- No 1{tbl} Take 1 Unive rs sulfate 325 7-22 05-17 tablet by it y of (65 FE) MG 00:00: 00:00 mouth [place] EC tablet 00 :00 daily. MD Fuentes zimmerman [facility] 2021- No 1{tbl} Take 1 Unive rs sulfate 325 7-22 05-17 tablet by it y of (65 FE) MG 00:00: 00:00 mouth [place] EC tablet 00 :00 daily. MD Fuentes zimmerman [facility] 2021- No 1{tbl} Take 1 Unive rs [...] tablet times a n day. 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 [facility] buprenorphi Yes Opioid use 2{tbl} Place [...] No Pneumocysto USE 1 VIAL Univers -albuterol 6-08 31- sis VIA ity of (DUO-NEB) 00:00: 00:00 [...] n hours. [facility] 2021- No Emphysema 600mg Take 1 Univers (MUCINEX) 10-08 tablet ity of 600 mg 12 00:00: 04:59 (600 mg) [place] hr tablet 00 :00 by mouth MD every 12 Anderso (twelve) n hours. [facility] 2021- No Emphysema 600mg Take 1 Univers (MUCINEX) 10-08 tablet ity of 600 mg 12 00:00: 04:59 (600 mg) [place] hr tablet 00 :00 by mouth MD every 12 [place] (twelve) n hours. [facility] 2021- No Emphysema 600mg Take 1 Univers (MUCINEX) 10-08 tablet ity of 600 mg 12 00:00: 04:59 (600 mg) [place] hr tablet 00 :00 by mouth MD every 12 Anderso (twelve) n hours. 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 Bakari zimmerman [facility] lancets Yes Type 2 1{each} 1 each by [place] [facility] 10-06 diabetes miscellane ity o f 00:00: [place] route [place] 00 with twice MD hyperglycem daily. Bakari zimmerman [facility] lancets Yes Type 2 1{each} 1 each by [place] [facility] 10-06 diabetes miscellane ity o f 00:00: [place]us route [place] 00 with twice MD hyperglycem daily. Bakari zimmerman [facility] lancets Yes Type 2 1{each} 1 each by [place] [facility] 10-06 diabetes miscellane ity o f 00:00: [place]us route [place] 00 with twice MD hyperglycem daily. Bakarijanice zimmerman [facility] lancets Yes Type 2 1{each} 1 each by [place] [facility] 10-06 diabetes miscellane ity o f 00:00: [place]us route [place] 00 with twice MD hyperglycem daily. Bakarijanice zimmerman [facility] lancets Yes Type 2 1{each} 1 each by [place] [facility] 10-06 diabetes miscellane ity o f 00:00: [place]us route [place] 00 with twice MD hyperglycem daily. Bakarijanice zimmerman [facility] lancets Yes Type 2 1{each} 1 each by [place] [facility] 10-06 diabetes miscellane ity o f 00:00: [place]us route [place] 00 with twice MD hyperglycem daily. Bakarijanice zimmerman [facility] lancets Yes Type 2 1{each} 1 each by [place] [facility] 10-06 diabetes miscellane ity o f 00:00: [place] ous route [place] 00 with twice MD hyperglycem daily. Bakarijanice zimmerman [facility] lancets Yes Type 2 1{each} 1 each by [place] [facility] 10-06 diabetes miscellane ity o f 00:00: mellitus ous route [place] 00 with twice MD hyperglycem daily. Bakarijanice zimmerman [facility] lancets Yes Type 2 1{each} 1 each by [place] [facility] 10-06 diabetes miscellane ity o f 00:00: mellitus [place]us route [place] 00 with twice MD hyperglycem daily. Bakari zimmerman [facility] Immunizations Ordered Immunization Filled Immunization Date Status Commen ts Source Name Name Pneumococcal 2022-03-24 Completed University o f Polysaccharide 00:00:00 [facility] [place] Pneumococcal 2022-03-24 Completed University o f Polysaccharide 00:00:00 [facility] [place] Pneumococcal 2022-03-24 Completed University o f Polysaccharide 00:00:00 [facility] [place] Pneumococcal 2022-03-24 Completed University o f Polysaccharide 00:00:00 [facility] [place] Pneumococcal 2022-03-24 Completed University o f Polysaccharide 00:00:00 [facility] [place] remdesivir 2020-08-22 Completed University of 00:00:00 [facility] [place] remdesivir 2020-08-22 Completed University of 00:00:00 [facility] remdesivir 2020-08-22 Completed University of 00:00:00 [place] MD [facility] remdesivir 2020-08-22 Completed University of 00:00:00 [place] MD [facility] remdesivir 2020-08-22 Completed University of 00:00:00 [place] MD [facility] remdesivir 2020-08-22 Completed University of 00:00:00 [place] MD [facility] remdesivir 2020-08-22 Completed University of 00:00:00 [place] MD [facility] remdesivir 2020-08-22 Completed University of 00:00:00 [place] MD [facility] remdesivir 2020-08-22 Completed University of 00:00:00 [place] MD Isaac [facility] remdesivir 2020-08-22 Completed University of 00:00:00 [place] MD [facility] remdesivir 2020-08-22 Completed University of 00:00:00 [place] MD [facility] remdesivir 2020-08-22 Completed University of 00:00:00 [place] MD [facility] remdesivir 2020-08-22 Completed University of 00:00:00 [place] MD [facility] remdesivir 2020-08-22 Completed University of 00:00:00 [place] MD [facility] remdesivir 2020-08-22 Completed University of 00:00:00 [place] MD [facility] remdesivir 2020-08-22 Completed University of 00:00:00 [place] MD Isaac [facility] remdesivir 2020-08-22 Completed University of 00:00:00 [place] [facility] remdesivir 2020-08-22 Completed University of 00:00:00 [place] MD [facility] remdesivir 2020-08-22 Completed University of 00:00:00 [place] MD [facility] remdesivir 2020-08-22 Completed University of 00:00:00 [place] MD [facility] remdesivir 2020-08-21 Completed University of 00:00:00 [place] MD [facility] remdesivir 2020-08-21 Completed University of 00:00:00 [place] MD [facility] remdesivir 2020-08-21 Completed University of 00:00:00 [place] [facility] remdesivir 2020-08-21 Completed University of 00:00:00 [place] MD Isaac [facility] remdesivir 2020-08-21 Completed University of 00:00:00 [place] MD [facility] remdesivir 2020-08-21 Completed University of 00:00:00 [place] MD Isaac [facility] remdesivir 2020-08-21 Completed University of 00:00:00 [place] MD Isaac [facility] remdesivir 2020-08-21 Completed University of 00:00:00 [place] MD [facility] remdesivir 2020-08-21 Completed University of 00:00:00 [place] MD [facility] remdesivir 2020-08-21 Completed University of 00:00:00 [place] MD Isaac [facility] remdesivir 2020-08-20 Completed University of 00:00:00 [place] MD Isaac [facility] remdesivir 2020-08-20 Completed University of 00:00:00 [place] MD [facility] remdesivir 2020-08-20 Completed University of 00:00:00 [place] MD Isaac [facility] remdesivir 2020-08-20 Completed University of 00:00:00 [place] MD [place] [facility] remdesivir 2020-08-20 Completed University of 00:00:00 [place] MD Isaac [facility] remdesivir 2020-08-20 Completed University of 00:00:00 [place] MD Isaac [facility] remdesivir 2020-08-20 Completed University of 00:00:00 [place] MD Isaac [facility] remdesivir 2020-08-20 Completed University of 00:00:00 [place] MD Isaac C[facility] [facility] rem[facility]ivir 2020-08-20 Completed [facility] 00:00:00 [place] [facility] remdesivir 2020-08-20 Completed [facility] 00:00:00 [place] [facility] remdesivir 2020-08-19 Completed [facility] 00:00:00 [place] [facility] remdesivir 2020-08-19 Completed [facility] 00:00:00 [place] [facility] remdesivir 2020-08-19 Completed [facility] 00:00:00 [place] [facility] remdesivir 2020-08-19 Completed [facility] 00:00:00 [place] [facility] remdesivir 2020-08-19 Completed [facility] 00:00:00 [place] [facility] remdesivir 2020-08-19 Completed [facility] 00:00:00 [place] [facility] remdesivir 2020-08-19 Completed [facility] 00:00:00 [place] [facility] [facility] remdesivir 2020-08-19 Completed [facility] 00:00:00 [place] [facility] remdesivir 2020-08-19 Completed [facility] 00:00:00 [place] [facility] [facility] remdesivir 2020-08-19 Completed [facility] 00:00:00 [place] [facility] remdesivir 2020-08-18 Completed [facility] 00:00:00 [place] [facility] [facility] remdesivir 2020-08-18 Completed [facility] 00:00:00 [place] [facility] [facility] remdesivir 2020-08-18 Completed [facility] 00:00:00 [place] [facility] Isaac [facility] remdesivir 2020-08-18 Completed [facility] 00:00:00 [place] [facility] [facility] remdesivir 2020-08-18 Completed [facility] 00:00:00 [place] [facility] [facility] remdesivir 2020-08-18 Completed [facility] 00:00:00 [place] [facility] [facility] remdesivir 2020-08-18 Completed [facility] 00:00:00 [place] [facility] [facility] remdesivir 2020-08-18 Completed [facility] 00:00:00 [place] [facility] [facility] remdesivir 2020-08-18 Completed [facility] 00:00:00 [place] [facility] [facility] remdesivir 2020-08-18 Completed [facility] 00:00:00 [place] [facility] [facility] remdesivir 2020-08-03 Completed [facility] 00:00:00 [place] [facility] remdesivir 2020-08-03 Completed [facility] 00:00:00 [place] [facility] remdesivir 2020-08-03 Completed [facility] 00:00:00 [place] [facility] [facility] remdesivir 2020-08-03 Completed [facility] 00:00:00 [place] [facility] remdesivir 2020-08-03 Completed [facility] 00:00:00 [place] [facility] Isaac [facility] remdesivir 2020-08-03 Completed [facility] 00:00:00 [place] [facility] remdesivir 2020-08-03 Completed [facility] 00:00:00 [place] [facility] remdesivir 2020-08-03 Completed [facility] 00:00:00 [place] [facility] remdesivir 2020-08-03 Completed [facility] 00:00:00 [place] [facility] remdesivir 2020-08-03 Completed [facility] 00:00:00 [place] [facility] remdesivir 2020-08-02 Completed [facility] 00:00:00 [place] [facility] remdesivir 2020-08-02 Completed [facility] 00:00:00 [place] [facility] remdesivir 2020-08-02 Completed [facility] 00:00:00 [place] [facility] remdesivir 2020-08-02 Completed [facility] 00:00:00 [place] [facility] remdesivir 2020-08-02 Completed [facility] 00:00:00 [place] [facility] remdesivir 2020-08-02 Completed [facility] 00:00:00 [place] [facility] remdesivir 2020-08-02 Completed [facility] 00:00:00 [place] [facility] remdesivir 2020-08-02 Completed [facility] 00:00:00 [place] [facility] remdesivir 2020-08-02 Completed [facility] 00:00:00 [place] [facility] remdesivir 2020-08-02 Completed [facility] 00:00:00 [place] [facility] remdesivir 2020-08-02 Completed [facility] 00:00:00 [place] [facility] Isaac [facility] remdesivir 2020-08-02 Completed [facility] 00:00:00 [place] [facility] Isaac [facility] remdesivir 2020-08-02 Completed [facility] 00:00:00 [place] [facility] remdesivir 2020-08-02 Completed [facility] 00:00:00 [place] [facility] Isaac [facility] remdesivir 2020-08-02 Completed [facility] 00:00:00 [place] [facility] Isaac [facility] remdesivir 2020-08-02 Completed [facility] 00:00:00 [place] [facility] Isaac [facility] remdesivir 2020-08-02 Completed [facility] 00:00:00 [place] [facility] Isaac [facility] remdesivir 2020-08-02 Completed [facility] 00:00:00 [place] [facility] Isaac [facility] remdesivir 2020-08-02 Completed [facility] 00:00:00 [place] [facility] Isaac [facility] remdesivir 2020-08-02 Completed [facility] 00:00:00 [place] [facility] remdesivir 2020-08-01 Completed [facility] 00:00:00 [place] [facility] remdesivir 2020-08-01 Completed [facility] 00:00:00 [place] Isaac [facility]ance [facility] [place] remdesivir 2020-08-01 Completed [facility] 00:00:00 [place] Isaac [facility] [place] remdesivir 2020-08-01 Completed [facility] 00:00:00 [place] Isaac [facility] [place] remdesivir 2020-08-01 Completed [facility] 00:00:00 [place] Isaac [facility] [place] remdesivir 2020-08-01 Completed [facility] 00:00:00 [place] Isaac [facility] [place] remdesivir 2020-08-01 Completed [facility] 00:00:00 [place] Isaac [facility] [place] remdesivir 2020-08-01 Completed [facility] 00:00:00 [place] Isaac [facility] [place] remdesivir 2020-08-01 Completed [facility] 00:00:00 [place] Isaac [facility] [place] remdesivir 2020-08-01 Completed [facility] 00:00:00 [place] [facility] remdesivir 2020-07-31 Completed [facility] 00:00:00 [place] [facility] remdesivir 2020-07-31 Completed [facility] 00:00:00 [place] [facility] Isaac [facility] remdesivir 2020-07-31 Completed [facility] 00:00:00 [place] [facility] Isaac [facility] remdesivir 2020-07-31 Completed [facility] 00:00:00 [place] [facility] Isaac [facility] remdesivir 2020-07-31 Completed [facility] 00:00:00 [place] Isaac [facility] [place] remdesivir 2020-07-31 Completed [facility] 00:00:00 [place] Isaac [facility] [place] remdesivir 2020-07-31 Completed [facility] 00:00:00 [place] Isaac [place] remdesivir 2020-07-31 Completed [facility] 00:00:00 [place] remdesivir 2020-07-31 Completed [facility] 00:00:00 [place] MD Isaac Can r [place] remdesivir 2020-07-31 Completed [facility] 00:00:00 [place] MD Isaac [facility] remdesivir 2020-07-30 Completed [facility] 00:00:00 [place] MD Isaac [facility] remdesivir 2020-07-30 Completed [facility] 00:00:00 [place] MD Isaac [facility] remdesivir 2020-07-30 Completed [facility] 00:00:00 [place] MD Isaac [facility] remdesivir 2020-07-30 Completed [facility] 00:00:00 [place] MD Isaac [facility] remdesivir 2020-07-30 Completed [facility] 00:00:00 [place] MD Isaac [facility] remdesivir 2020-07-30 Completed [facility] 00:00:00 [place] [facility] 00:00:00 [place] MD Isaac [facility] remdesivir 2020-07-30 Completed [facility] 00:00:00 [place] [facility] remdesivir 2020-07-30 Completed [facility] 00:00:00 [place] Isaac Dom [facility] remdesivir 2020-07-30 Completed [facility] 00:00:00 Willis Fernandes [facility] Influenza Split High 2020-03-29 Completed Univ ersity of Dose Preservative 00:00:00 [place] Tate Villarreal Poncho Fernandes [facility] Zoster Recombinant 2020-03-29 Completed Univer sity of 00:00:00 Willis Fernandes [facility] Influenza Split High 2020-03-29 Completed Univ ersity of Dose Preservative 00:00:00 Willis Villarreal Poncho Fernandes [facility] Zoster Recombinant 2020-03-29 Completed Univer sity of 00:00:00 Willis leos [place] Influenza Split High 2020-03-29 Completed Univ ersity of Dose Preservative 00:00:00 [place] Tate Villarreal Poncho Fernandes [facility] Zoster Recombinant 2020-03-29 Completed Univer sity of 00:00:00 Willis Fernandes [facility] Influenza Split High 2020-03-29 Completed Univ ersity of Dose Preservative 00:00:00 [place] Free [place] Cance [facility] [place] Zoster Recombinant 2020-03-29 Completed Univer sity of 00:00:00 Willis Fernandes [facility] Influenza Split High 2020-03-29 Completed Univ ersity of Dose Preservative 00:00:00 [place] [facility] Free [facility] [place] [facility] Zoster Recombinant 2020-03-29 Completed Univer sity of 00:00:00 Willis Fernandes [facility] Influenza Split High 2020-03-29 Completed Univ ersity of Dose Preservative 00:00:00 [place] M D Free [facility] Cance r [place] Zoster Recombinant 2020-03-29 Completed Univer sity of 00:00:00 Willis Fernandes [facility] Influenza Split High 2020-03-29 Completed Univ ersity of Dose Preservative 00:00:00 [place] M D Free [facility] Cance r [place] Zoster Recombinant 2020-03-29 Completed Univer sity of 00:00:00 Willis Fernandes [facility] Influenza Split High 2020-03-29 Completed Univ ersity of Dose Preservative 00:00:00 [place] Free [facility] Cance r [place] Zoster Recombinant 2020-03-29 Completed Univer sity of 00:00:00 Willis Fernandes [facility] Influenza Split High 2020-03-29 Completed Univ ersity of Dose Preservative 00:00:00 [place] Free [facility] Cance r [place] Zoster Recombinant 2020-03-29 Completed Univer sity of 00:00:00 Willis Fernandes [facility] Influenza Split High 2020-03-29 Completed Univ ersity of Dose Preservative 00:00:00 [place] Free [facility] Cance r [place] Zoster Recombinant 2020-03-29 Completed Univer sity of 00:00:00 [place] [facility] Vital Signs Vital Name Observation Time [...] /min [facility] Arterial blood by Willis claudioon [facility] Systolic blood 2022-06-07 [...] 17:30:00 119 mm[Hg] Univer sity of pressure [place] [facility] Diastolic blood 2021-10-24 17:30:00 78 mm[Hg] Unive rsity of pressure [place] MD Villegas on [facility] Oxygen saturation in 2021-10-24 17:30:00 96 /min University Arterial blood by Willis mayfield [facility] Body temperature 2021-10-24 16:48:00 36.89 [place] Univ ersity of Willis [facility] Body weight 2021-10-24 09:00:00 [facility] [place] [facility] BMI 2021-10-24 09:00:00 19.57 [facility] MD [facility]leg[facility] on [facility] Body height 2021-10-15 14:57:[address] [facility] MD Villegas [facility] Procedures Procedure Date / Time Performing Clinician Source Performed CT CHEST W CONTRAST 2022-09-13 13:57:00 Stella Clark [facility] POC CREATININE 2022-09-13 13:38:00 Stella Clark [facility] COMPLETE BLOOD COUNT W/ 2022-09-13 13:10:00 [facility] COMPREHENSIVE METABOLIC 2022-09-13 13:10:00 Maria Fernanda [place] [facility] PANEL [facility] Results CBC 2022-09-13 13:10:00 Maria Fernanda Washington [facility] MANUAL DIFFERENTIAL 2022-09-13 13:10:00 Maria Fernanda Washington rsity of [facility] GLUCOSE LEVEL 2022-09-13 13:10:00 Maria Fernanda Washington y [facility] BLOOD UREA NITROGEN 2022-09-13 13:10:00 Maria Fernanda [facility] ELECTROLYTE PANEL 2022-09-13 13:10:00 [facility]ATININE 2022-09-13 13:10:00 Maria Fernanda [facility] .GLOMERULAR FILTRATION 2022-09-13 13:10:00 Maria Fernanda [place] V. [facility] [place] RATE [facility] CALCIUM LEVEL TOTAL 2022-09-13 13:10:00 Maria Fernanda [facility] ALBUMIN LEVEL 2022-09-13 13:10:00 Maria Fernanda Washington V. [facility] ALKALINE PHOSPHATASE 2022-09-13 13:10:00 Maria Fernanda [place] V. [facility] ALANINE AMINOTRANSFERASE 2022-09-13 13:10:00 Maria Fernanda Washington V. [facility] ASPARTATE AMINOTRANSFERASE 2022-09-13 13:10:00 Maria Fernanda Washington [facility] TOTAL PROTEIN 2022-09-13 13:10:00 Maria Fernanda Washington V. [facility] FRACTIONATED BILIRUBIN 2022-09-13 13:10:00 Maria Fernanda [place] [facility] COMPLETE BLOOD COUNT W/ 2022-06-07 15:54:00 [facility] COMPREHENSIVE METABOLIC 2022-06-07 15:54:00 [facility] PAN[facility] FREE THYROXINE 2022-06-07 15:54:00 Stella Clark [facility] MAGNESIUM LEVEL 2022-06-07 15:54:00 Stella Clark [facility] TOTAL T3 2022-06-07 15:54:00 Stella Clark [facility] THYROID STIMULATING 2022-06-07 15:54:00 Stella Clark [facility] HORMONE [facility] URIC ACID 2022-06-07 15:54:00 Stella Clark [facility] Results CBC 2022-06-07 15:54:00 Stella Clark [facility] MANUAL DIFFERENTIAL 2022-06-07 15:54:[address] [facility] GLUCOSE LEVEL 2022-06-07 15:54:00 Stella Clark [facility] BLOOD UREA NITROGEN 2022-06-07 15:54:[address] [facility] SERUM CREATININE 2022-06-07 15:54:00 Stella Clark [facility] .GLOMERULAR FILTRATION 2022-06-07 15:54:00 Stella Clark [facility] RATE [facility] CALCIUM LEVEL TOTAL 2022-06-07 15:54:[address] [facility] ALBUMIN LEVEL 2022-06-07 15:54:00 Stella Clark [facility] ALKALINE PHOSPHATASE 2022-06-07 15:54:00 Stella Clark [facility] ALANINE AMINOTRANSFERASE 2022-06-07 15:54:00 Stella Clark [facility] ASPARTATE AMINOTRANSFERASE 2022-06-07 15:54:00 Stella Clark [facility] TOTAL PROTEIN 2022-06-07 15:54:00 Stella Clark [facility] FRACTIONATED BILIRUBIN 2022-06-07 15:54:00 [facility] ELECTROLYTE PANEL 2022-06-07 15:54:00 Stella Clark [facility] PETCT SUBSEQUENT TREATMENT 2022-06-07 15:27:59 Stella Clark [facility] STRATEGY [facility] COMPLETE BLOOD COUNT W/ 2021-10-24 10:53:00 Tod Glass V. [facility] DIFFERENTIAL [facility] COMPREHENSIVE METABOLIC 2021-10-24 10:53:00 Tod Glass [facility] PANEL [facility] MAGNESIUM LEVEL 2021-10-24 10:53:00 Tod Glass [facility] PHOSPHORUS LEVEL 2021-10-24 10:53:00 Tod Glass V. [facility] Results CBC 2021-10-24 10:53:00 Tod Glass [facility] MANUAL DIFFERENTIAL 2021-10-24 10:53:00 Tod Glass V. [facility] GLUCOSE LEVEL 2021-10-24 10:53:00 Tod Glass [facility] BLOOD UREA NITROGEN 2021-10-24 10:53:00 Tod Glass V. [facility] ELECTROLYTE PANEL 2021-10-24 10:53:00 Tod Glass V. [facility] SERUM CREATININE 2021-10-24 10:53:00 Tod Glass V. [facility] .GLOMERULAR FILTRATION 2021-10-24 10:53:00 [facility] RATE [facility] CALCIUM LEVEL TOTAL 2021-10-24 10:53:00 Tod Glass V. [facility] ALBUMIN LEVEL 2021-10-24 10:53:00 Tod Glass [facility] ALKALINE PHOSPHATASE 2021-10-24 10:53:00 Tod Glass V. [facility] ALANINE AMINOTRANSFERASE 2021-10-24 10:53:00 [facility] ASPARTATE AMINOTRANSFERASE 2021-10-24 10:53:00 [facility] TOTAL PROTEIN 2021-10-24 10:53:00 Tod Glass [facility] FRACTIONATED BILIRUBIN 2021-10-24 10:53:00 Tod Glass [facility] OSCILLATORY PEP 2021-10-23 13:00:13 Tod Glass [facility] COMPLETE BLOOD COUNT W/ 2021-10-23 12:28:00 Tod Glass V. [facility] DIFFERENTIAL [facility] COMPREHENSIVE METABOLIC 2021-10-23 12:28:00 Tod Glass V. [facility] PANEL [facility] MAGNESIUM LEVEL 2021-10-23 12:28:00 Tod Glass [facility] PHOSPHORUS LEVEL 2021-10-23 12:28:00 Tod Glass V. [facility] Results CBC 2021-10-23 12:28:00 Tod Glass [facility] MANUAL DIFFERENTIAL 2021-10-23 12:28:00 Tod Glass V. [facility] GLUCOSE LEVEL 2021-10-23 12:28:00 Tod Glass [facility] BLOOD UREA NITROGEN 2021-10-23 12:28:00 Tod Glass V. [facility] ELECTROLYTE PANEL 2021-10-23 12:28:00 Tod Glass V. [facility] SERUM CREATININE 2021-10-23 12:28:00 Tod Glass V. [facility] .GLOMERULAR FILTRATION 2021-10-23 12:28:00 Tod Glass [facility] RATE [facility] CALCIUM LEVEL TOTAL 2021-10-23 12:28:00 Tod Glass V. [facility] ALBUMIN LEVEL 2021-10-23 12:28:00 Tod Glass V[facility] ALKALINE PHOSPHATASE 2021-10-23 12:28:[address] [facility] ALANINE AMINOTRANSFERASE 2021-10-23 12:28:00 [facility] ASPARTATE AMINOTRANSFERASE 2021-10-23 12:28:00 Tod Glass [facility] TOTAL PROTEIN 2021-10-23 12:28:00 Tod Glass [facility] FRACTIONATED BILIRUBIN 2021-10-23 12:28:00 Tod Glass [facility] OSCILLATORY PEP 2021-10-22 19:00:57 Tod Glass [facility] OSCILLATORY PEP 2021-10-22 13:00:14 Tod Glass [facility] COMPLETE BLOOD COUNT W/ 2021-10-22 11:48:00 Tod Glass [facility] DIFFERENTIAL [facility] COMPREHENSIVE METABOLIC 2021-10-22 11:48:00 Tod Glass [facility] PANEL [facility] MAGNESIUM LEVEL 2021-10-22 11:48:00 Tod Glass [facility] PHOSPHORUS LEVEL 2021-10-22 11:48:00 Tod Glass V. [facility] IGG SUBCLASSES, SERUM 2021-10-22 11:48:00 Tod Glass sity [facility] IMMUNOGLOBULIN G SERUM 2021-10-22 11:48:00 Tod Glass [facility] IMMUNOGLOBULIN A SERUM 2021-10-22 11:48:00 Tod Glass [facility] Results CBC 2021-10-22 11:48:00 Tod Glass [facility] MANUAL DIFFERENTIAL 2021-10-22 11:48:00 Tod Glass V. [facility] GLUCOSE LEVEL 2021-10-22 11:48:00 Tod Glass [facility] BLOOD UREA NITROGEN 2021-10-22 11:48:00 Tod Glass V. [facility] ELECTROLYTE PANEL 2021-10-22 11:48:00 Tod Glass V. [facility] SERUM CREATININE 2021-10-22 11:48:00 Tod Glass V. [facility] .GLOMERULAR FILTRATION 2021-10-22 11:48:00 Tod Glass [facility] CALCIUM LEVEL TOTAL 2021-10-22 11:48:00 Tod Glass V. [facility] ALBUMIN LEVEL 2021-10-22 11:48:00 Tod Glass [facility] ALKALINE PHOSPHATASE 2021-10-22 11:48:[address] [facility] ALANINE AMINOTRANSFERASE 2021-10-22 11:48:00 Tod [facility] ASPARTATE AMINOTRANSFERASE 2021-10-22 11:48:00 Tod Glass V. [facility] TOTAL PROTEIN 2021-10-22 11:48:00 Tod Glass [facility] FRACTIONATED BILIRUBIN 2021-10-22 11:48:00 Tod Glass [facility] OSCILLATORY PEP 2021-10-22 01:00:11 Tod Glass [facility] XR CHEST 1 VW 2021-10-21 20:44:00 Tod Glass [facility] BLOODCULTURE 2021-10-21 14:09:00 Tod Glass [facility] FUNGAL BLOODCULTURE 2021-10-21 14:09:00 Tod Glass V. [facility] COMPLETE BLOOD COUNT W/ 2021-10-21 11:02:00 Tod Glass [facility] COMPREHENSIVE METABOLIC 2021-10-21 11:02:00 Tod Glass [facility] PANEL [facility] MAGNESIUM LEVEL 2021-10-21 11:02:00 Tod Glass [facility] PHOSPHORUS LEVEL 2021-10-21 11:02:00 Tod Glass V. [facility] Results CBC 2021-10-21 11:02:00 Tod Glass [facility] MANUAL DIFFERENTIAL 2021-10-21 11:02:00 Tod Glass V. [facility] GLUCOSE LEVEL 2021-10-21 11:02:00 Tod Glass [facility] BLOOD UREA NITROGEN 2021-10-21 11:02:00 Tod Glass V. [facility] ELECTROLYTE PANEL 2021-10-21 11:02:00 Tod Glass V. [facility] SERUM CREATININE 2021-10-21 11:02:00 Tod Glass V. [facility] .GLOMERULAR FILTRATION 2021-10-21 11:02:00 Tod Glass [facility] CALCIUM LEVEL TOTAL 2021-10-21 11:02:00 Tod Glass V. [facility] ALBUMIN LEVEL 2021-10-21 11:02:00 Tod Glass [facility] ALKALINE PHOSPHATASE 2021-10-21 11:02:[address] [facility] ALANINE AMINOTRANSFERASE 2021-10-21 11:02:00 [facility] ASPARTATE AMINOTRANSFERASE 2021-10-21 11:02:00 [facility] TOTAL PROTEIN 2021-10-21 11:02:00 Tod Glass [facility] FRACTIONATED BILIRUBIN 2021-10-21 11:02:00 Tod Glass [facility] EKG, 12-LEAD (PORTABLE) 2021-10-21 00:00:00 Tod Glass V. [facility] XR ABDOMEN 1 VW PORTABLE 2021-10-20 19:19:00 [facility] OSC[facility] PEP 2021-10-20 19:00:49 Tod Glass V[facility] OSCILLATORY PEP 2021-10-20 13:00:11 Tod Glass [facility] COMPLETE BLOOD COUNT W/ 2021-10-20 11:10:00 Tod Glass V. [facility] DIFFERENTIAL [facility] COMPREHENSIVE METABOLIC 2021-10-20 11:10:00 Tod Glass V. [facility] PANEL [facility] MAGNESIUM LEVEL 2021-10-20 11:10:00 Tod Glass [facility] PHOSPHORUS LEVEL 2021-10-20 11:10:00 Tod Glass V. [facility] Results CBC 2021-10-20 11:10:00 Tod Glass [facility] MANUAL DIFFERENTIAL 2021-10-20 11:10:00 Tod Glass V. [facility] GLUCOSE LEVEL 2021-10-20 11:10:00 Tod Glass V[facility] BLOOD UREA NITROGEN 2021-10-20 11:10:00 Tod Glass V. [facility] ELECTROLYTE PANEL 2021-10-20 11:10:00 Tod Glass V. [facility] SERUM CREATININE 2021-10-20 11:10:00 Tod Glass V. [facility] .GLOMERULAR FILTRATION 2021-10-20 11:10:00 Tod Glass [facility] RATE [facility] CALCIUM LEVEL TOTAL 2021-10-20 11:10:00 Tod Glass V. [facility] ALBUMIN LEVEL 2021-10-20 11:10:00 Tod Glass V. [facility] ALKALINE PHOSPHATASE 2021-10-20 11:10:[address] [facility] ALANINE AMINOTRANSFERASE 2021-10-20 11:10:00 [facility] ASPARTATE AMINOTRANSFERASE 2021-10-20 11:10:00 [facility] TOTAL PROTEIN 2021-10-20 11:10:00 Tod Glass V. [facility] FRACTIONATED BILIRUBIN 2021-10-20 11:10:00 Tod Glass V. [facility] OSCILLATORY PEP 2021-10-20 01:00:09 Tod Glass V. [facility] OSCILLATORY PEP 2021-10-19 19:00:53 Tod Glass V. [facility] PATHOLOGY BIOPSY 2021-10-19 18:35:[address] [facility] INTERPRETATION [facility] UPPER GASTROINTESTINAL 2021-10-19 18:14:00 Edwige Rod [facility] ENDOSCOPY OF ESOPHAGUS, MD Levi darden Cancer STOMACH, AND DUODENUM WITH Cente r BIOPSY OSCILLATORY PEP 2021-10-19 14:01:42 Tod Glass V. [facility] COMPLETE BLOOD COUNT W/ 2021-10-19 12:18:00 Tod Glass V. [facility] DIFFERENTIAL [facility] COMPREHENSIVE METABOLIC 2021-10-19 12:18:00 Tod Glass V. [facility] PANEL [facility] MAGNESIUM LEVEL 2021-10-19 12:18:00 Tod Glass V. [facility] PHOSPHORUS LEVEL 2021-10-19 12:18:00 Tod Glass V. [facility] Results CBC 2021-10-19 12:18:00 Tod Glass V. [facility] MANUAL DIFFERENTIAL 2021-10-19 12:18:00 Tod Glass V. [facility] GLUCOSE LEVEL 2021-10-19 12:18:00 Tod Glass V. [facility] BLOOD UREA NITROGEN 2021-10-19 12:18:00 Tod Glass V. [facility] ELECTROLYTE PANEL 2021-10-19 12:18:00 Tod Glass V. [facility] SERUM CREATININE 2021-10-19 12:18:00 Tod Glass V. [facility] .GLOMERULAR FILTRATION 2021-10-19 12:18:00 Tod Glass [facility] CALCIUM LEVEL TOTAL 2021-10-19 12:18:00 Tod Glass V. [facility] ALBUMIN LEVEL 2021-10-19 12:18:00 Tod Glass V. [facility] ALKALINE PHOSPHATASE 2021-10-19 12:18:[address] [facility] ALANINE AMINOTRANSFERASE 2021-10-19 12:18:00 Tod Glass V. Uni [facility] ASPARTATE AMINOTRANSFERASE 2021-10-19 12:18:00 Tod Glass V. U [facility] TOTAL PROTEIN 2021-10-19 12:18:00 Tod Glass V. [facility] FRACTIONATED BILIRUBIN 2021-10-19 12:18:00 [facility] XR CHEST 1 VW 2021-10-18 21:15:00 Tod Glass V. [facility] POC GLUCOSE SCREEN 2021-10-18 11:47:00 Tod Glass V. [facility] COMPLETE BLOOD COUNT W/ 2021-10-18 09:25:00 Tod Glass V. [facility] DIFFERENTIAL [facility] COMPREHENSIVE METABOLIC 2021-10-18 09:25:00 oTd Glass V. [facility] PANEL [facility] MAGNESIUM LEVEL 2021-10-18 09:25:00 Tod Glass V. [facility] PHOSPHORUS LEVEL 2021-10-18 09:25:00 Tod Glass V. [facility] Results CBC 2021-10-18 09:25:00 Tod Glass V. [facility] MANUAL DIFFERENTIAL 2021-10-18 09:25:00 Tod Glass V. [facility] GLUCOSE LEVEL 2021-10-18 09:25:00 Tod Glass V. [facility] BLOOD UREA NITROGEN 2021-10-18 09:25:00 Tod Glass V. [facility] ELECTROLYTE PANEL 2021-10-18 09:25:00 Tod Glass V. [facility] SERUM CREATININE 2021-10-18 09:25:00 Tod Glass V. [facility] .GLOMERULAR FILTRATION 2021-10-18 09:25:00 Tod Glass V. [facility] RATE [facility] CALCIUM LEVEL TOTAL 2021-10-18 09:25:00 Tod Glass V. [facility] ALBUMIN LEVEL 2021-10-18 09:25:00 Tod Glass V. [facility] ALKALINE PHOSPHATASE 2021-10-18 09:25:[address] [facility] ALANINE AMINOTRANSFERASE 2021-10-18 09:25:00 Tod Glass V. [facility] ASPARTATE AMINOTRANSFERASE 2021-10-18 09:25:00 [facility]. [facility] TOTAL PROTEIN 2021-10-18 09:25:00 Tod Glass V. [facility] FRACTIONATED BILIRUBIN 2021-10-18 09:25:00 [facility] OSCILLATORY PEP 2021-10-18 07:00:10 Tod Glass V. [facility] OSCILLATORY PEP 2021-10-18 01:00:07 Tod Glass V. [facility] OSCILLATORY PEP 2021-10-17 19:01:02 Tod Glass V. [facility] VANCOMYCIN LEVEL TROUGH 2021-10-17 16:50:00 Tod Glass V. [facility] OSCILLATORY PEP 2021-10-17 14:31:30 Tod Glass V. [facility] FUNGITELL, SERUM 2021-10-17 08:59:00 Tod Glass V. [facility] COMPLETE BLOOD COUNT W/ 2021-10-17 08:59:00 Tod Glass V. [facility] DIFFERENTIAL [facility] COMPREHENSIVE METABOLIC 2021-10-17 08:59:00 Tod Glass V. [facility] PANEL [facility] MAGNESIUM LEVEL 2021-10-17 08:59:00 Tod Glass V. [facility] PHOSPHORUS LEVEL 2021-10-17 08:59:00 Tod Glass V. [facility] Results CBC 2021-10-17 08:59:00 Tod Glass V. [facility] MANUAL DIFFERENTIAL 2021-10-17 08:59:00 Tod Glass V. [facility] GLUCOSE LEVEL 2021-10-17 08:59:00 Tod Glass V. [facility] BLOOD UREA NITROGEN 2021-10-17 08:59:00 Tod Glass V. [facility] ELECTROLYTE PANEL 2021-10-17 08:59:00 Tod Glass V. [facility] SERUM CREATININE 2021-10-17 08:59:00 Tod Glass V. [facility] .GLOMERULAR FILTRATION 2021-10-17 08:59:00 Tod Glass [facility] CALCIUM LEVEL TOTAL 2021-10-17 08:59:00 Tod Glass V. [facility] ALBUMIN LEVEL 2021-10-17 08:59:00 Tod Glass V. [place] o [facility] ALKALINE PHOSPHATASE 2021-10-17 08:59:[address] [facility] ALANINE AMINOTRANSFERASE 2021-10-17 08:59:00 Tod Glass V. [facility] ASPARTATE AMINOTRANSFERASE 2021-10-17 08:59:00 Tod Glass V. [facility] TOTAL PROTEIN 2021-10-17 08:59:00 Tod lGass V. [facility] FRACTIONATED BILIRUBIN 2021-10-17 08:59:00 [facility] PROCALCITONIN 2021-10-17 08:59:00 Tod Glass V. [place] [facility] FL MODIFIED BARIUM SWALLOW 2021-10-16 19:57:25 Tod Glass [facility] W SPEECH [facility] RESPIRATORY VIRAL PANEL, 2021-10-16 13:05:00 Tod Glass [facility] NASOPHARYNGEAL SWAB [facility] [place] RESPIRATORY PCR PANEL, MAT MAN 2021-10-16 13:05:00 Tod [facility]. [facility] SW[facility] RESPIRATORY PCR PANEL PATH 2021-10-16 13:05:00 [facility] RE[facility] MRSA SCREENING CULTURE 2021-10-15 21:25:00 [facility] TROPONIN T 2021-10-15 18:15:00 Bijan Verónica [facility] CT CHEST PULMONARY 2021-10-15 17:58:06 Verónica [facility]kar [facility] EMBOLISM W CONTRAST [facility] [place] LEGIONELLA URINE ANTIGEN 2021-10-15 17:17:00 Verónica Thakkar [facility] STREPTOCOCCUS PNEUMONIAE 2021-10-15 17:17:00 Verónica Thakkar [facility] URINE ANTIGEN [facility] STREPTOCOCCAL URINE 2021-10-15 17:17:[address] [facility] ANTIGEN PATH REVIEW [facility] [place] LEGIONELLA URINE ANTIGEN 2021-10-15 17:17:00 Verónica Thakkar [facility] PATH REVIEW [facility] FUNGITELL, SERUM 2021-10-15 16:43:00 Bijan [facility] COVID-19 (SARS-COV-2) 2021-10-15 15:08:00 Verónica Thakkar [facility] ASYMPTOMATIC-LT [facility] BLOODCULTURE 2021-10-15 15:08:00 [facility]OWER [facility]PIR[facility] CULTURE 2021-10-15 15:08:00 Verónica Thakkar [facility] W/ GRAM STAIN [facility] COMPREHENSIVE METABOLIC 2021-10-15 15:08:00 Verónica Thakkar [facility] MAGNESIUM LEVEL 2021-10-15 15:08:00 Bijan [facility] PHOSPHORUS LEVEL 2021-10-15 15:08:00 Bijan [facility] LACTATE DEHYDROGENASE 2021-10-15 15:08:[address] [facility] PROCALCITONIN 2021-10-15 15:08:00 Bijan [facility] TROPONIN T 2021-10-15 15:08:00 [facility] CREATINE KINASE 2021-10-15 15:08:00 Bijan [facility] CKMB 2021-10-15 15:08:00 Bijan [facility] NT PRO BNP 2021-10-15 15:08:00 Bijan [facility] COMPLETE BLOOD COUNT W/ 2021-10-15 15:08:00 Verónica Thakkar [facility] DIFFERENTIAL [facility] PROTHROMBIN TIME 2021-10-15 15:08:00 Bijan [facility] APTT 2021-10-15 15:08:00 Bijan [facility] GLUCOSE LEVEL 2021-10-15 15:08:00 Bijan [facility] BLOOD UREA NITROGEN 2021-10-15 15:08:00 Bijan Verónica [facility] ELECTROLYTE PANEL 2021-10-15 15:08:00 Bijan [facility] SERUM CREATININE 2021-10-15 15:08:00 Bijan [facility] .GLOMERULAR FILTRATION 2021-10-15 15:08:00 Verónica Thakkar [facility] RATE [facility] CALCIUM LEVEL TOTAL 2021-10-15 15:08:00 Bijan Verónica [facility] ALBUMIN LEVEL 2021-10-15 15:08:00 Bijan Verónica [facility] ALKALINE PHOSPHATASE 2021-10-15 15:08:[address] [facility] ALANINE AMINOTRANSFERASE 2021-10-15 15:08:00 Verónica Thakkar [facility] ASPARTATE AMINOTRANSFERASE 2021-10-15 15:08:00 [facility] TOTAL PROTEIN 2021-10-15 15:08:00 Faiz, [facility] Center FRACTIONATED BILIRUBIN 2021-10-15 15:08:00 Bijan [facility] Results CBC 2021-10-15 15:08:00 Bijan [facility] Center MANUAL DIFFERENTIAL 2021-10-15 15:08:00 Bijan [facility] XR CHEST 1 VW 2021-10-15 14:45:00 Bijan [facility] EKG, 12-LEAD (PORTABLE) 2021-10-15 00:00:00 Bijan [facility] COMPLETE BLOOD COUNT W/ 2021-09-05 11:48:00 Inez Lagunas [facility] DIFFERENTIAL [facility] COMPREHENSIVE METABOLIC 2021-09-05 11:48:00 Inez Lagunas [facility] PANEL [facility] MAGNESIUM LEVEL 2021-09-05 11:48:00 Bebo [facility] PHOSPHORUS LEVEL 2021-09-05 11:48:00 Bebo [facility] Results CBC 2021-09-05 11:48:00 Bebo [facility] MANUAL DIFFERENTIAL 2021-09-05 11:48:[address] [facility] GLUCOSE LEVEL 2021-09-05 11:48:00 Bebo [facility] BLOOD UREA NITROGEN 2021-09-05 11:48:[address] [facility] ELECTROLYTE PANEL 2021-09-05 11:48:00 Bebo [facility] SERUM CREATININE 2021-09-05 11:48:00 Bebo [facility] .GLOMERULAR FILTRATION 2021-09-05 11:48:00 Inez Lagunas [facility] RATE [facility] Center CALCIUM LEVEL TOTAL 2021-09-05 11:48:[address] [facility] ALBUMIN LEVEL 2021-09-05 11:48:00 Bebo [facility] University o f [facility] ALKALINE PHOSPHATASE 2021-09-05 11:48:00 Bebo [facility] Univers ity of [facility] ALANINE AMINOTRANSFERASE 2021-09-05 11:48:00 Bebo Mini Uni versity of [facility] ASPARTATE AMINOTRANSFERASE 2021-09-05 11:48:00 Inez Lagunas U niversity of [facility] TOTAL PROTEIN 2021-09-05 11:48:00 Bebo [facility] University o f [facility] FRACTIONATED BILIRUBIN 2021-09-05 11:48:00 Bebo [facility] Unive rsity of [facility] STREPTOCOCCUS PNEUMONIAE 2021-09-04 19:38:00 Bebo [facility] Uni versity [facility] URINE ANTIGEN [facility] LEGIONELLA URINE ANTIGEN 2021-09-04 19:38:00 Bebo [facility] Uni versity of [facility] LEGIONELLA URINE ANTIGEN 2021-09-04 19:38:00 Bebo [facility] [place] PATH REVIEW [facility] STREPTOCOCCAL URINE 2021-09-04 19:38:00 [facility] ANTIGEN PATH REVIEW [facility] LOWER RESPIRATORY CULTURE 2021-09-04 19:36:00 Inez [facility] W/ GRAM STAIN [facility] BASIC METABOLIC PANEL, 2021-09-04 09:51:00 Verónica Thakkar [facility] CALCIUM TOTAL [facility] MAGNESIUM LEVEL 2021-09-04 09:51:00 Bijan [facility] PHOSPHORUS LEVEL 2021-09-04 09:51:00 Bijan [facility] TROPONIN T 2021-09-04 09:51:00 Mehrdad Rod [facility] GLUCOSE LEVEL 2021-09-04 09:51:00 Bijan [facility] BLOOD UREA NITROGEN 2021-09-04 09:51:00 Bijan Verónica [facility] ELECTROLYTE PANEL 2021-09-04 09:51:00 Bijan [facility] SERUM CREATININE 2021-09-04 09:51:00 Bijan [facility] .GLOMERULAR FILTRATION 2021-09-04 09:51:00 Verónica Thakkar [facility] RATE [facility] CALCIUM LEVEL TOTAL 2021-09-04 09:51:00 Verónica Thakkar [facility] TROPONIN T 2021-09-04 03:49:00 Bijan [facility] CREATINE KINASE 2021-09-04 03:49:00 Bijan [facility] CKMB 2021-09-04 03:49:00 Bijan [facility] CT CHEST PULMONARY 2021-09-04 03:46:45 [facility]ica [facility] [place] XR CHEST 1 VW 2021-09-03 23:40:27 Jyoti Morales [facility] RESPIRATORY VIRAL 2021-09-03 23:14:00 Jyoti Morales [facility] MULTIPLEX PCR PANEL, [facility] NASOPHARYNGEAL SWAB Center COMPLETE BLOOD COUNT W/ 2021-09-03 21:54:00 Jyoti Morales [facility] DIFFERENTIAL [facility] COMPREHENSIVE METABOLIC 2021-09-03 21:54:00 Jyoti Morales [facility] PANEL [facility] MAGNESIUM LEVEL 2021-09-03 21:54:00 Jyoti Morales [facility] Center PHOSPHORUS LEVEL 2021-09-03 21:54:00 Jyoti Morales [facility] NT PRO BNP 2021-09-03 21:54:00 Jyoti Morales [facility] TROPONIN T 2021-09-03 21:54:00 Jyoti Morales [facility] Results CBC 2021-09-03 21:54:00 Jyoti Morales [facility] Center MANUAL DIFFERENTIAL 2021-09-03 21:54:00 Jyoti Morales [facility] GLUCOSE LEVEL 2021-09-03 21:54:00 Jyoti Morales [place] [facility] BLOOD UREA NITROGEN 2021-09-03 21:54:00 Jyoti Morales [facility] ELECTROLYTE PANEL 2021-09-03 21:54:00 Jyoti Morales [facility] SERUM CREATININE 2021-09-03 21:54:00 Jyoti Morales [facility] .GLOMERULAR FILTRATION 2021-09-03 21:54:00 [facility] CALCIUM LEVEL TOTAL 2021-09-03 21:54:00 Jyoti Morales [facility] ALBUMIN LEVEL 2021-09-03 21:54:00 Jyoti Morales [facility] ALKALINE PHOSPHATASE 2021-09-03 21:54:[address] [facility] ALANINE AMINOTRANSFERASE 2021-09-03 21:54:00 Jyoti Morales [facility] ASPARTATE AMINOTRANSFERASE 2021-09-03 21:54:00 Jyoti Morales [facility] TOTAL PROTEIN 2021-09-03 21:54:00 Jyoti Morales [facility] FRACTIONATED BILIRUBIN 2021-09-03 21:54:00 Jyoti Morales [facility] EKG, 12-LEAD (PORTABLE) 2021-09-03 00:00:00 Jyoti Morales [facility] CT CHEST W CONTRAST 2021-08-13 14:15:24 Nicole Del Rosario [facility] POC CREATININE 2021-08-13 13:30:00 Nicole Del Rosario [facility] REPLACEMENT OF GASTROSTOMY 2021-05-22 04:50:00 Claude Tobin [facility] TUBE, KATJA, MD Isaac Cancer INCLUDES REMOVAL, WHEN Center PERFORMED, WITHOUT IMAGING OR ENDOSCOPIC GUIDANCE; NOT REQUIRING REVISION OF GASTROSTOMY TRACT CT CHEST ABDOMEN PELVIS W 2021-04-20 19:35:00 Jackie Mendez [facility] CONTRAST [facility] er Center POC CREATININE 2021-04-20 18:02:00 [facility] WO CONTRAST 2021-04-20 16:10:00 Jackie Mendez [facility] Plan of Care Planned Activity Planned Date Details Comments Source Future Scheduled 2022-12-24 COVID-19 Vaccination [facility] [place] Test 09:50:41 (#1) [code = COVID-19 MD And erson [...] Department ID 2022-10-08 Outpatient SYSTEM, ANUJ LESLIE [id number] 12:38:41 PROVIDER Bakari zimmerman 2021-04-30 Emergency [facility] [id number] Univers 04:07:38 ity of [facility] 2020-04-12 Outpatient ANUJ LESLIE [id number] 16:09:07 Fuentes zimmerman 2020-02-14 Outpatient SYSTEM, ANUJ LESLIE [id number] 13:23:33 PROVIDER Bakari zimmerman 2022-12-24 2022-12-24 Telephone Curtis 1.2.840.1 [id number] Univers 00:00:00 00:00:00 Lisa Ann [id number] ity of 3.412.2.7 [place] .3.801567 .8 [facility] 2022-12-20 2022-12-20 Telephone Zulema Cedillo 1.2.840.1 [id number] Univers 00:00:00 00:00:00 Desiree [id number] ity of 3.412.2.7 [place] .3.552901 .8 [facility] 2022-12-14 2022-12-14 Documentat Padmini 1.2.840.1 [id number] Univers 00:00:00 00:00:00 ion Maria Fernanda Fu [id number] ity of 3.412.2.7 [place] .3.442863 .8 [facility] 2022-12-13 2022-12-13 Orders Adrian, 1.2.840.1 [id number] Univers 00:00:00 00:00:00 Only Grey Trevino 53399.1.1 i ty of 3.412.2.7 [place] .3.743756 MD Beasley [facility] 2022-11-19 2022-11-19 Raul Amor, 1.2.840.1 [id number] Univers 00:00:00 00:00:00 Only Alex 12535.1.1 ity of 3.412.2.7 [place] .3.004035 MD Haines8 [facility] 2022-09-13 2022-09-13 [facility], 1.2.840.1 [id number] Univers 07:30:00 23:59:00 Encounter Maria Fernanda Fu 64490.1.1 i ty of 3.412.2.7 [place] .3.031874 MD Haines8 [facility] 2022-09-13 2022-09-13 [facility], 1.2.840.1 [id number] Univers 07:30:00 23:59:00 Encounter Maria Fernanda V. 79708.1.1 i ty of 3.412.2.7 [place] .3.250422 MD Beasley [facility] 2022-09-13 2022-09-13 Follow-Up [facility], 1.2.840.1 [id number] Univers 11:30:00 13:09:21 Maria Fernanda V. 03404.1.1 ity of 3.412.2.7 [place] .3.072254 MD Beasley [facility] 2022-09-13 2022-09-13 Follow-Up [facility], 1.2.840.1 [id number] Univers 11:30:00 13:09:21 Maria Fernanda V. [id number] ity of 3.412.2.7 [place] .3.151331 MD Beasley [facility] 2022-09-13 2022-09-13 Ancillary Amber, 1.2.840.1 [id number] Univers 08:35:00 10:00:00 Procedure Stella [id number] ity of 3.412.2.7 [place] .3.019564 MD Beasley [facility] 2022-09-13 2022-09-13 Ancillary NICHOLE Clark, 1.2.840.1 [id number] Univers 08:35:00 10:00:00 Procedure Stella 01212.1.1 ity of 3.412.2.7 [place] .3.739505 MD Haines8 [facility] 2022-09-13 2022-09-13 Raul Clark, 1.2.840.1 [id number] Univers 00:00:00 00:00:00 Only Stella [id number] it y of 3.412.2.7 [place] .3.022877 MD Beasley [facility] 2022-09-13 2022-09-13 Travel 1.2.840.1 1.2.660.340 [id number] Univers 00:00:00 00:00:00 06124.1.1 350.1.13.41 ity of 3.412.2.[place]698 [place] .3.616903 084.8 MD Beasley [facility] 2022-09-13 2022-09-13 Raul Clark, 1.2.840.1 [id number] Univers 00:00:00 00:00:00 Only Stella 47570.1.1 it y of 3.412.2.7 [place] .3.134045 MD Beasley [facility] 2022-09-13 2022-09-13 Travel 1.2.840.1 1.2.686.119 [id number] Univers 00:00:00 00:00:00 [id number] 350.1.13.41 ity of 3.412.2.[place].698 [place] .3.963574 [id number] MD Beasley [facility] 2022-09-05 2022-09-05 Orders Amber, 1.2.840.1 [id number] Univers 00:00:00 00:00:00 Only Stella 23363.1.1 it y of 3.412.2.7 [place] .3.712757 MD Haines8 [facility] 2022-09-05 2022-09-05 [facility] Amber, 1.2.840.1 [id number] Univers 00:00:00 00:00:00 Only Stella 75244.1.1 it y of 3.412.2.7 [place] .3.968182 MD Haines8 [facility] 2022-08-29 2022-08-29 Telephone Akhtar, 1.2.840.1 [id number] Univers 00:00:00 00:00:00 Liz G 49079.1.1 ity of 3.412.2.7 [place] .3.730226 MD Haines8 [facility] 2022-08-29 2022-08-29 Telephone Akhtar, 1.2.840.1 [id number] Univers 00:00:00 00:00:00 Liz G 76536.1.1 ity of 3.412.2.7 [place] .3.295352 MD Haines8 [facility] 2022-06-19 2022-06-19 Orders Padmini, 1.2.840.1 [id number] Univers 00:00:00 00:00:00 Only Maria Fernanda V. 84542.1.1 ity of 3.412.2.7 [place] .3.698762 MD Haines8 [facility] 2022-06-19 2022-06-19 Orders Fossella, 1.2.840.1 [id number] Univers 00:00:00 00:00:00 Only Maria Fernanda V. 28722.1.1 ity of 3.412.2.7 [place] .3.164377 MD Haines8 [facility] 2022-06-07 2022-06-07 [facility] Amber, 1.2.840.1 [id number] Univers 09:35:06 23:59:00 Encounter Stella 05252.1.1 ity of 3.412.2.7 [place] .3.695972 MD [facility]8 [facility] 2022-06-07 2022-06-07 [facility] NICHOLE Clark, 1.2.840.1 [id number] Univers 09:35:06 23:59:00 Encounter Stella 91695.1.1 ity of 3.412.2.7 [place] .3.442200 MD [facility]aines8 [facility] 2022-06-07 2022-06-07 Follow-Up Padmini, 1.2.840.1 [id number] 10 [id number] Univers 12:00:00 14:14:09 Maria Fernanda V. 46147.1.1 ity of 3.412.2.7 [place] .3.457879 MD [facility] 2022-06-07 2022-06-07 Follow-Up NICHOLE Washington, 1.2.840.1 [id number] 10 [id number] Univers 12:00:00 14:14:09 Maria Fernanda V. 09994.1.1 ity of 3.412.2.7 [place] .3.429700 MD [facility] 2022-06-07 2022-06-07 [facility] Amber, 1.2.840.1 [id number] 1099 [id number] Univers 07:00:00 09:30:00 Procedure Stella 18424.1.1 ity of 3.412.2.7 [place] .3.379404 MD [facility] 2022-06-07 2022-06-07 [facility] NICHOLE Clark, 1.2.840.1 [id number] 1099 [id number] Univers 07:00:00 09:30:00 Procedure Stella 56228.1.1 ity of 3.412.2.7 [place] .3.746965 MD [facility] 2022-06-07 2022-06-07 [facility] Amber, 1.2.840.1 [id number] Univers 00:00:00 00:00:00 Only Stella 73206.1.1 it y of 3.412.2.7 [place] .3.451182 MD [facility] 2022-06-07 2022-06-07 Raul Washington, 1.2.840.1 [id number] Univers 00:00:00 00:00:00 Only Maria Fernanda Cervantes. 76110.1.1 ity of 3.412.2.7 [place] .3.877864 MD [facility] 2022-06-07 2022-06-07 Travel 1.2.840.1 1.2.853.194 3775 [id number] Univers 00:00:00 00:00:00 63398.1.1 350.1.13.41 ity of 3.412.2.7 [place]7.3.698 [place] .3.704621 084.8 MD [facility] 2022-06-07 2022-06-07 Orders Amber, 1.2.840.1 [id number] Univers 00:00:00 00:00:00 Only Stella 32554.1.1 it y of 3.412.2.7 [place] .3.112804 MD [facility] 2022-06-07 2022-06-07 Orders Padmini, 1.2.840.1 [id number] Univers 00:00:00 00:00:00 Only Maria Fernanda Cervantes. 00786.1.1 ity of 3.412.2.7 [place] .3.077301 MD [facility] 2022-06-07 2022-06-07 Travel 1.2.840.1 1.2.018.636 8753 [id number] Univers 00:00:00 00:00:00 41723.1.1 350.1.13.41 ity of 3.412.2.7 2.[place]7.3.698 [place] .3.939358 084.8 MD [facility] 2022-05-09 2022-05-09 Uzma Sanon, 1.2.840.1 [id number] 1099 [id number] Univers 00:00:00 00:00:00 Mini F 81866.1.1 ity of 3.412.2.7 [place] .3.266505 MD [facility]8 [facility] 2022-05-09 2022-05-09 Telephone Fab, 1.2.840.1 [id number] 1099 [id number] Univers 00:00:00 00:00:00 Mini F 69339.1.1 ity of 3.412.2.7 [place] .3.339303 MD [facility]8 [facility] 2022-05-03 2022-05-03 Orders Amber, 1.2.840.1 [id number] 7298 Univers 00:00:00 00:00:00 Only Stella 71617.1.1 it y of 3.412.2.7 [place] .3.671147 MD [facility]8 [facility] 2022-05-03 2022-05-03 Telephone Zulema Cedillo 1.2.840.1 [id number] 1 [id number] Univers 00:00:00 00:00:00 A 40711.1.1 ity of 3.412.2.7 [place] .3.319605 MD [facility]8 [facility] 2022-05-03 2022-05-03 Raul Clark, 1.2.840.1 [id number] 4912 Univers 00:00:00 00:00:00 Only Stella 16046.1.1 it y of 3.412.2.7 [place] .3.855763 MD [facility]8 [facility] 2022-05-03 2022-05-03 Telephone Mamadou Donniesally 1.2.840.1 [id number] 1 [id number] Univers 00:00:00 00:00:00 A 08162.1.1 ity of 3.412.2.7 [place] .3.668913 MD [facility]8 [facility] 2021-12-28 2021-12-28 Nurse Willis, 1.2.840.1 [id number] 1094 [id number] Univers 00:00:00 00:00:00 Triage Constantine 55160.1.1 ity of 3.412.2.7 [place] .3.969969 MD [facility]8 [facility] 2021-12-28 2021-12-28 Documentat Fossella, 1.2.840.1 [id number] 1 [id number] Univers 00:00:00 00:00:00 ion Maria Fernanda V. 93009.1.1 ity of 3.412.2.7 [place] .3.973073 MD [facility]8 [facility] 2021-12-28 2021-12-28 Nurse Lazaro, 1.2.840.1 [id number] 1094 [id number] Univers 00:00:00 00:00:00 Triage Constantine 02217.1.1 ity of 3.412.2.7 [place] .3.825542 MD [facility]8 [facility] 2021-12-28 2021-12-28 Documentat Fossella, 1.2.840.1 [id number] 1 [id number] Univers 00:00:00 00:00:00 ion Maria Fernanda V. 53813.1.1 ity of 3.412.2.7 [place] .3.405034 MD [facility]8 [facility] 2021-12-20 2021-12-20 Telephone Ger, 1.2.840.1 [id number] 1 [id number] Univers 00:00:00 00:00:00 Lolita 38486.1.1 ity of Ethelda 3.412.2.7 [place] .3.229256 MD [facility]8 [facility] 2021-12-11 2021-12-11 Telephone Nuvia, 1.2.840.1 [id number] 1093 [id number] Univers 00:00:00 00:00:00 Bibiana Trevino 30753.1.1 ity of 3.412.2.7 [place] .3.748915 MD [facility]8 [facility] 2021-12-05 2021-12-05 Telephone Tyson, 1.2.840.1 [id number] 1093 [id number] Univers 00:00:00 00:00:00 Kasie Lehman 74647.1.1 i ty of 3.412.2.7 [place] .3.435393 .8 [facility] 2021-12-01 2021-12-01 Nurse Marshall, 1.2.840.1 [id number] 8356 Univers 00:00:00 00:00:00 Triage Erin Lehman 34912.1.1 i ty of 3.412.2.7 [place] .3.930947 .8 [facility] 2021-11-13 2021-11-13 Raul Clark, 1.2.840.1 [id number] 9063 Univers 00:00:00 00:00:00 Only Stella 68230.1.1 it y of 3.412.2.7 [place] .3.730394 .8 [facility] 2021-11-13 2021-11-13 Uzma Shaffer 1.2.840.1 [id number] 1092 [id number] Univers 00:00:00 00:00:00 Daisy Zimmerman 03131.1.1 it y of 3.412.2.7 [place] .3.618825 .8 [facility] 2021-11-02 2021-11-02 Fito Huber 1.2.840.1 [id number] 1092 [id number] Univers 00:00:00 00:00:00 Only Herrera 20981.1.1 ity of 3.412.2.7 [place] .3.525215 .8 [facility] 2021-11-02 2021-11-02 Karishma Haider 1.2.840.1 [id number] 10 [id number] Univers 00:00:00 00:00:00 Triage Abby 04431.1.1 ity of 3.412.2.7 [place] .3.619800 .8 [facility] 2021-10-15 2021-10-24 [facility] Verónica Diaz 1.2.840.1 [id number] Univers 09:35:00 17:00:00 Encounter Thelma Bowser 69998.1.1 ity of Judy, Bea 3.412.2.7 Gio as Tod Glass V. .3.819508 Boni Dominguez .8 [facility] 2021-10-24 2021-10-24 Nurse Jackson, 1.2.840.1 [id number] Univers 00:00:00 00:00:00 Triage Arcadio 78007.1.1 ity of 3.412.2.7 [place] .3.571530 .8 [facility] 2021-10-23 2021-10-23 Inpatient NICHOLE OBRIEN MDA MDA [id number] 20:59:49 21:16:07 BONI Villegas o erasmo 2021-10-19 2021-10-19 Surgery Rod, 1.2.840.1 [id number] Univers 15:10:00 15:50:00 Gibbons 81609.1.1 ity of Ali 3.412.2.7 [place] .3.363733 .8 [facility] 2021-10-19 2021-10-19 Anesthesia Jenise Degroot 1.2.840.1 [id number] Univers 13:24:00 13:49:00 Event Dhiraj Fry 53314.1.1 ity of 3.412.2.7 [place] .3.730536 .8 [facility] 2021-10-18 2021-10-18 Prep for O'Brandon, 1.2.840.1 [id number] Univers 00:00:00 00:00:00 Surgery Shena 77950.1.1 [place].2.7 [place] .3.273901 .8 [facility] 2021-10-17 2021-10-17 Inpatient TOD CAMACHO ANUJ LESLIE [id number] 11:46:00 11:46:04 Bakari zimmerman 2021-10-16 2021-10-16 Inpatient NICHOLE WASHINGTON MDA MDA [id number] 14:52:17 14:52:20 MARIA FERNANDA zimmerman 2021-10-16 2021-10-16 Inpatient NICHOLE WASHINGTON MDA MDA [id number] 10:37:11 10:37:14 MARIA FERNANDA zimmerman 2021-10-16 2021-10-16 Inpatient NICHOLE CORDELLREAGAN MDA MDA [id number] 10:05:03 10:05:06 MARIA FERNANDA zimmerman 2021-10-15 2021-10-15 Inpatient NICHOLE KIM [facility] [id number] 23:20:17 23:40:10 Bakari zimmerman 2021-10-15 2021-10-15 Travel 1.2.840.1 1.2.685.988 3372 [id number] Univers 00:00:00 00:00:00 75437.1.1 350.1.13.41 ity of 3.412.2.7 [place].3.698 [place]3.390344 084.8 MD Haines8 [facility] 2021-10-11 2021-10-11 Orders Amber, 1.2.840.1 [id number] Univers 00:00:00 00:00:00 Only Stella 14207.1.1 it y of 3.412.2.7 [place] .3.591219 MD Haines8 [facility] 2021-10-10 2021-10-10 Orders Shantal 1.2.840.1 [id number] Univers 00:00:00 00:00:00 Only Kaylyn 22017.1.1 ity of Deshawn 3.412.2.7 [place] .3.226701 MD Haines8 [facility] 2021-10-10 2021-10-10 Nurse Dean, 1.2.840.1 [id number] 1321 Univers 00:00:00 00:00:00 Triage Stella Stewart 40883.1.1 ity of 3.412.2.7 [place] .3.191433 MD Haines8 [facility] 2021-10-10 2021-10-10 Uzma Thrasher 1.2.840.1 [id number] 1091 [id number] Univers 00:00:00 00:00:00 Ileana Ann 06689.1.1 i ty of 3.412.2.7 [place] .3.416596 MD Haines8 [facility] 2021-09-03 2021-09-07 [facility] Verónica Thakkar 1.2.840.1 [id number] [facility] 16:59:00 15:45:00 Jojo HernandezMehrdad real 02535.1.1 ity of Gurpreet Estes 3.412.2.7 [place] .3.301007 MD [facility] 2021-09-07 2021-09-07 Travel 1.2.840.1 1.2.313.241 4150 [id number] [facility] 00:00:00 00:00:00 55270.1.1 350.1.13.41 ity of 3.412.2.7 2.[place].7.3.698 [place] .3.720526 084.8 MD [facility] 2021-09-05 2021-09-05 [facility] NICHOLE HART MDA MDA [id number] 11:14:45 11:38:29 SOFI Villegas [facility] 2021-09-03 2021-09-03 Travel 1.2.840.1 1.2.738.871 0131 [id number] Univers 00:00:00 00:00:00 20414.1.1 350.1.13.41 ity of 3.412.2.7 2.2.7.3.698 [place] .3.792497 084.8 MD [facility] 2021-09-03 2021-09-03 Telephone John, 1.2.840.1 [id number] 1090 [id number] Univers 00:00:00 00:00:00 Michael Lehman 53602.1.1 ity of 3.412.2.7 [place] .3.706354 MD [facility] 2021-08-22 2021-08-22 Telephone Amber, 1.2.840.1 [id number] 1089 [id number] Univers 00:00:00 00:00:00 Stella 99540.1.1 it y of 3.412.2.7 [place] .3.490200 MD [facility] 2021-08-22 2021-08-22 Raul Clark, 1.2.840.1 [id number] 6427 Univers 00:00:00 00:00:00 Only Stella 18152.1.1 it y of 3.412.2.7 [place] .3.525155 MD Haines8 [facility] 2021-08-20 2021-08-20 Raul Sanon, 1.2.840.1 [id number] 9194 Univers 00:00:00 00:00:00 Only Jonhvladimir Ramírez 48174.1.1 ity of 3.412.2.7 [place] .3.808974 MD [facility]8 [facility] 2021-08-18 2021-08-18 Raul Clark 1.2.840.1 [id number] 4103 Univers 00:00:00 00:00:00 Only Stella 85162.1.1 it y of 3.412.2.7 [place] .3.515845 MD Haines8 [facility] 2021-08-18 2021-08-18 Raul Washington, 1.2.840.1 [id number] 1089 [id number] Univers 00:00:00 00:00:00 Only Maria Fernanda Fu 63053.1.1 ity of 3.412.2.7 [place] .3.228759 MD Haines8 [facility] 2021-08-17 2021-08-17 Telephone Zulema Cedillo 1.2.840.1 [id number] 1 [id number] Univers 00:00:00 00:00:00 Desiree 10952.1.1 ity of 3.412.2.7 [place] .3.147403 MD Haines8 [facility] 2021-08-14 2021-08-14 Office NICHOLE Piedra, 1.2.840.1 [id number] Univers 12:15:00 13:20:09 Visit Herrera 69172.1.1 ity of 3.412.2.7 [place] .3.612641 MD Haines8 [facility] 2021-08-14 2021-08-14 Office NICHOLE Washington, 1.2.840.1 [id number] 1089 [id number] Univers 08:30:00 10:28:29 Visit Maria Fernanda Fu 77907.1.1 ity of 3.412.2.7 [place] .3.082508 MD Haines8 [facility] 2021-08-14 2021-08-14 Orders Solo, 1.2.840.1 [id number] [id number] Univers 00:00:00 00:00:00 Only Jacki 64836.1.1 ity of 3.412.2.7 [place] .3.422367 MD [facility]aines8 [facility] 2021-08-14 2021-08-14 Orders Gucci, 1.2.840.1 [id number] [id number] Univers 00:00:00 00:00:00 Only Sarah Ybarra 35411.1.1 ity of 3.412.2.7 [place] .3.473349 MD [facility] 2021-08-14 2021-08-14 Travel 1.2.840.1 1.2.404.585 3982 [id number] Univers 00:00:00 00:00:00 28951.1.1 350.1.13.41 ity of 3.412.2.7 2.2.7.3.698 [place] .3.493356 084.8 MD [facility] 2021-08-13 2021-08-13 [facility] NICHOLE Marr Raymundo 1.2.840.1 [id number] 10 [id number] Univers 09:45:00 23:59:00 Encounter 37027.1.1 it y of 3.412.2.7 [place] .3.222899 MD [facility] 2021-08-13 2021-08-13 Hospital NICHOLE Del Rosario, 1.2.840.1 [id number] Univers 06:35:00 09:44:00 Encounter Nicole 06250.1.1 it y of Chunyi 3.412.2.7 [place] .3.862990 MD [facility] 2021-08-13 2021-08-13 [facility] Miguel Ángel 1.2.840.1 [id number] 9777 Univers 00:00:00 00:00:00 Only Nicole 10018.1.1 ity of [place]unyi 3.412.2.7 [place] .3.606137 MD [facility] 2021-08-13 2021-08-13 Travel 1.2.840.1 1.2.934.001 9216 [id number] Univers 00:00:00 00:00:00 96143.1.1 350.1.13.41 ity of 3.412.2.7 2.2.7.3.698 [place] .3.540728 084.8 MD [facility] 2021-08-11 2021-08-11 Angel [place], 1.2.840.1 [id number] 1089 [id number] Univers 00:00:00 00:00:00 Maria Fernanda Nickie 27721.1.1 ity of 3.412.2.7 [place] .3.181543 MD [facility] 2021-08-07 2021-08-07 Orders Fenton, 1.2.840.1 [id number] 4014 Univers 00:00:00 00:00:00 Only Abdirizak 47174.1.1 ity of 3.412.2.7 [place] .3.416106 MD [facility] 2021-07-27 2021-07-27 Telephone Jarrett, 1.2.840.1 [id number] 1 [id number] Univers 00:00:00 00:00:00 Génesis Ann 74512.1.1 ity of 3.412.2.7 [place] .3.579419 MD [facility]8 [facility] 2021-07-27 2021-07-27 Angel Clark, 1.2.840.1 [id number] 5218 Univers 00:00:00 00:00:00 Stella 92263.1.1 it y of 3.412.2.7 [place] .3.966615 MD [facility] 2021-07-26 2021-07-26 Telephone Anais, 1.2.840.1 [id number] 1 [id number] Univers 00:00:00 00:00:00 Génesis Trevino 69143.1.1 ity of 3.412.2.7 [place] .3.354307 MD [facility]8 [facility] 2021-07-26 2021-07-26 Raul Mendez, 1.2.840.1 [id number] Univers 00:00:00 00:00:00 Only Jackie 44589.1.1 ity of 3.412.2.7 [place] .3.404673 MD Haines8 [facility] 2021-07-26 2021-07-26 Angel Clark, 1.2.840.1 [id number] 6447 Univers 00:00:00 00:00:00 Stella 17659.1.1 it y of 3.412.2.7 [place] .3.524833 MD Haines8 [facility] 2021-07-19 2021-07-19 Telephone Edmund, 1.2.840.1 [id number] 1088 [id number] Univers 00:00:00 00:00:00 Daisy Zimmerman 39197.1.1 it y of 3.412.2.7 [place] .3.570742 MD [facility]8 [facility] 2021-07-12 2021-07-12 Uzma Clark, 1.2.840.1 [id number] 1088 [id number] Univers 00:00:00 00:00:00 Stella 49236.1.1 it y of 3.412.2.7 [place] .3.132266 MD [facility]aines8 [facility] 2021-07-11 2021-07-11 Raul Clark, 1.2.840.1 [id number] 2659 Univers 00:00:00 00:00:00 Only Stella 36710.1.1 it y of 3.412.2.7 [place] .3.227062 MD [facility]aines8 [facility] 2021-07-11 2021-07-11 Telephone Price, 1.2.840.1 [id number] 1088 [id number] Univers 00:00:00 00:00:00 Ileana Ann 69562.1.1 i ty of 3.412.2.7 [place] .3Yancy622681 MD Haines8 [facility] 2021-07-02 2021-07-02 Raul Clark, 1.2.840.1 [id number] 2520 Univers 00:00:00 00:00:00 Only Stella 32512.1.1 it y of 3.412.2.7 [place] .3Yancy379550 .8 [facility] 2021-06-27 2021-06-27 Raul Clark, 1.2.840.1 [id number] 698014 7047 Univers 00:00:00 00:00:00 Only Stella 22588.1.1 it y of 3.412.2.7 [place] .3Yancy535969 MD Haines8 [facility] 2021-06-25 2021-06-25 Raul Clark, 1.2.840.1 [id number] 2260 Univers 00:00:00 00:00:00 Only Stella 73690.1.1 it y of 3.412.2.7 [place] .3Yancy713956 MD Haines8 [facility] 2021-06-14 2021-06-14 Uzma Cyr, 1.2.840.1 [id number] 1 [id number] Univers 00:00:00 00:00:00 Lolita 86340.1.1 ity of Ethelda 3.412.2.7 [place] .3.948241 MD Haines8 [facility] 2021-06-11 2021-06-11 Raul Clark 1.2.840.1 [id number] Univers 00:00:00 00:00:00 Only Stella 80947.1.1 it y of 3.412.2.7 [place] .3Yancy479629 MD Haines8 [facility] 2021-06-09 2021-06-09 Angel Rivas, 1.2.840.1 [id number] [id number] Univers 00:00:00 00:00:00 Yudith Lehman 22399.1.1 ity of 3.412.2.7 [place] .3.895820 MD [facility]aines8 [facility] 2021-06-06 2021-06-06 Telephone Anais, 1.2.840.1 [id number] 1 [id number] Univers 00:00:00 00:00:00 Génesis Trevino 52988.1.1 ity of 3.412.2.7 [place] .3.493578 MD Haines8 [facility] 2021-05-21 2021-05-21 Surgery Tobin, 1.2.840.1 [id number] 3780 Univers 14:50:00 15:20:00 Claude 76312.1.1 ity of 3.412.2.7 [place] .3.427991 MD Haines8 [facility] 2021-05-21 2021-05-21 [facility] Tobin, 1.2.840.1 [id number] Univers 12:54:00 13:30:00 Encounter Claude 67129.1.1 it y of 3.412.2.7 [place] .3.749473 MD [facility] 2021-05-21 2021-05-21 Travel 1.2.840.1 1.2.329.880 5697 [id number] Univers 00:00:00 00:00:00 66701.1.1 350.1.13.41 ity of 3.412.2.7 2.2.7.3.698 [place] .3.664280 084.8 MD [facility] 2021-05-17 2021-05-17 Prep for [facility], 1.2.840.1 [id number] 95848 Univers 00:00:00 00:00:00 Surgery Elmira Zimmerman 71840.1.1 it y of 3.412.2.7 [place] .3.002300 MD [facility] 2021-05-17 2021-05-17 Orders Amber, 1.2.840.1 [id number] Univers 00:00:00 00:00:00 Only Stella 03796.1.1 it y of 3.412.2.7 [place] .3.411958 MD Haines8 [facility] 2021-05-16 2021-05-16 Raul Clark, 1.2.840.1 [id number] 3609 Univers 00:00:00 00:00:00 Only Stella 99566.1.1 it y of 3.412.2.7 [place] .3.919034 MD Haines8 [facility] 2021-05-16 2021-05-16 Telephone Ger, 1.2.840.1 [id number] 1 [id number] Univers 00:00:00 00:00:00 Lolita 24004.1.1 ity of Ethelda 3.412.2.7 [place] .3.254802 MD Haines8 [facility] 2021-05-16 2021-05-16 Telephone Ger, 1.2.840.1 [id number] 1 [id number] Univers 00:00:00 00:00:00 Lolita 84115.1.1 ity of Ethelda 3.412.2.7 [place] .3.936002 MD [facility] 2021-05-14 2021-05-14 Raul Javed 1.2.840.1 [id number] 9698 Univers 00:00:00 00:00:00 Only Giovanna Tanner 61414.1.1 i ty of 3.412.2.7 [place] .3Yancy957735 MD [facility] 2021-04-27 2021-04-27 Raul Clark 1.2.840.1 [id number] 8004 Univers 00:00:00 00:00:00 Only Stella 96305.1.1 it y of 3.412.2.7 [place] .3.217440 MD [facility] 2021-04-25 2021-04-25 Raul Clark 1.2.840.1 [id number] 4374 Univers 00:00:00 00:00:00 Only Stella 33607.1.1 it y of 3.412.2.7 [place] .3Yancy585831 MD .8 [facility] 2021-04-23 2021-04-23 [facility] Raymundo Rivera 1.2.840.1 [id number] 10 [id number] Univers 09:38:02 23:59:00 Encounter 71663.1.1 it y of 3.412.2.7 [place] .3.429775 MD Haines8 [facility] 2021-04-23 2021-04-23 Raul Del Rosario, 1.2.840.1 [id number] 7667 Univers 00:00:00 00:00:00 Only Nicole 84342.1.1 ity of [place] 3.412.2.7 [place] .3.301350 MD Haines8 [facility] 2021-04-23 2021-04-23 Raul Del Rosario 1.2.840.1 [id number] 4417 Univers 00:00:00 00:00:00 Only Nicole 78058.1.1 ity of [place] 3.412.2.7 [place] .3.274648 MD [facility] 2021-04-23 2021-04-23 Raul Del Rosario, 1.2.840.1 [id number] 7175 Univers 00:00:00 00:00:00 Only Nicole 20733.1.1 ity of [place] 3.412.2.7 [place] .3.683638 MD [facility] 2021-04-23 2021-04-23 Raul Del Rosario 1.2.840.1 [id number] 0625 Univers 00:00:00 00:00:00 Only Nicole 97936.1.1 ity of [place] 3.412.2.7 [place] .3.600277 MD [facility] 2021-04-23 2021-04-23 Travel 1.2.840.1 1.2.774.714 7092 [id number] Univers 00:00:00 00:00:00 38778.1.1 350.1.13.41 ity of 3.412.2.7 2.2.7.3.698 [place] .3.073700 084.8 MD [facility] 2021-04-20 2021-04-20 Hospital [facility], 1.2.840.1 [id number] 990 [id number] Univers 11:46:55 23:59:00 Encounter Maria Fernanda V. 47080.1.1 i ty of 3.412.2.7 [place] .3.751430 MD [facility] 2021-04-20 2021-04-20 Ancillary [facility], 1.2.840.1 [id number] 10 [id number] Univers 09:15:00 11:00:00 Procedure Maria Fernanda V. 68455.1.1 i ty of 3.412.2.7 [place] .3.050293 MD Hainse8 [facility] 2021-04-20 2021-04-20 Travel 1.2.840.1 1.2.876.307 4221 [id number] Univers 00:00:00 00:00:00 42541.1.1 350.1.13.41 ity of 3.412.2.7 2.2.7.3.698 [place] .3.351161 084.8 .Shaun [facility] 2021-04-16 2021-04-16 [facility], 1.2.840.1 [id number] Univers 09:30:00 23:59:00 Encounter Mary Beth Ann 47354.1.1 i ty of 3.412.2.7 [place] .3.363409 MD Beasley [facility] 2021-04-16 2021-04-16 Office [facility], 1.2.840.1 [id number] Univers 09:00:00 10:36:47 Visit Herrera 72918.1.1 ity of 3.412.2.7 [place] .3.356098 MD Beasley [facility] 2021-04-16 2021-04-16 Travel 1.2.840.1 1.2.840.804 [id number] Univers 00:00:00 00:00:00 99784.1.1 350.1.13.41 ity of 3.412.2.7 [place].3.698 [place] .3.3835[place] 084.8 MD Haines8 [facility] 2021-04-13 2021-04-13 Raul Giraldo, 1.2.840.1 [id number] Univers 00:00:00 00:00:00 Only Wayne 38474.1.1 ity of 3.412.2.7 [place] .3.743396 .8 [facility] 2021-04-07 2021-04-07 Raul Jaerika 1.2.840.1 [id number] Univers 00:00:00 00:00:00 Only Kaylyn, 14025.1.1 ity of Deshawn 3.412.2.7 [place] .3.202410 MD Haines8 [facility] 2021-04-07 2021-04-07 Nurse Taylor 1.2.840.1 [id number] Univers 00:00:00 00:00:00 Mario Lehman 19682.1.1 it y of 3.412.2.7 [place] .3.294513 MD Haines8 [facility] 2021-04-05 2021-04-05 Raul Clark, 1.2.840.1 [id number] Univers 00:00:00 00:00:00 Only Stella 54386.1.1 it y of 3.412.2.7 [place] .3.485031 MD Haines8 [facility] 2021-04-04 2021-04-04 Angel Gonzalez 1.2.840.1 [id number] Univers 00:00:00 00:00:00 Gurpreet Ramírez 34814.1.1 it y of 3.412.2.7 [place] .3.925091 MD Haines8 [facility] 2021-04-04 2021-04-04 Gabrielle Osborne 1.2.840.1 [id number] Univers 00:00:00 00:00:00 K 70440.1.1 ity of 3.412.2.7 [place] .3.669586 MD Haines8 [facility] 2021-04-03 2021-04-03 Gillian Marr, 1.2.840.1 [id number] Univers 14:00:00 14:00:00 Alina 69658.1.1 ity of 3.412.2.7 [place] .3.027853 MD Haines8 [facility] 2021-03-30 2021-03-30 Raul Clark 1.2.840.1 [id number] Univers 00:00:00 00:00:00 Only Stella 92269.1.1 it y of 3.412.2.7 [place] .3.376923 MD Haines8 [facility] 2021-03-29 2021-03-29 Raul Clark 1.2.840.1 [id number] Univers 00:00:00 00:00:00 Only Stella 88882.1.1 it y of 3.412.2.7 [place] .3.124706 MD Haines8 [facility] 2021-03-27 2021-03-27 Raul Clark 1.2.840.1 [id number] Univers 00:00:00 00:00:00 Only Stella 68436.1.1 it y of 3.412.2.7 [place] .3.835731 MD Haines8 [facility] 2021-03-27 2021-03-27 Angel Santillan, 1.2.840.1 [id number] Univers 00:00:00 00:00:00 Wilfredo Stewart 65556.1.1 ity of 3.412.2.7 [place] .3.197672 MD Haines8 [facility] 2021-03-09 2021-03-09 Raul Perez 1.2.840.1 [id number] Univers 00:00:00 00:00:00 Only Tanja Mora 76243.1.1 ity of 3.412.2.7 [place] .3.376289 MD Haines8 [facility] 2021-03-08 2021-03-08 Orders Amber, 1.2.840.1 [id number] Univers 00:00:00 00:00:00 Only Stella 81627.1.1 it y of 3.412.2.7 [place] .3.593459 .8 [facility] 2021-03-07 2021-03-07 Orders Chris, 1.2.840.1 [id number] Univers 00:00:00 00:00:00 Only Tanja Mora 36277.1.1 ity of 3.412.2.7 [place] .3.396077 .8 [facility] 2021-03-07 2021-03-07 Documentat Precious, 1.2.840.1 [id number] Univers 00:00:00 00:00:00 ion Benedicto 87464.1.1 ity of 3.412.2.7 [place] .3.159564 .8 [facility] 2021-03-07 2021-03-07 Angel Rivas, 1.2.840.1 [id number] Univers 00:00:00 00:00:00 Yudith Lehman 02833.1.1 ity of 3.412.2.7 [place] .3.877298 .8 [facility] 2021-03-07 2021-03-07 Documentat Shivam, 1.2.840.1 [id number] Univers 00:00:00 00:00:00 ion Sahara 28866.1.1 ity of Sofi 3.412.2.7 [place] .3.025368 .8 [facility] 2021-02-16 2021-03-02 Inpatient BHARGAV SMITH [facility] [id number] 13:50:00 18:30:00 IRINA zimmerman 2021-03-02 2021-03-02 Inpatient NICHOLE SMITH MDA MDA [id number] 10:28:13 10:52:29 IRINA zimmerman 2021-03-01 2021-03-01 Inpatient GABRIELLE SQUIRES MDA MDA [id number] 13:48:32 14:24:14 Bakari o n 2021-02-28 2021-02-28 Inpatient EL GABRIELLE GONZALEZ MDA MDA [id number] 15:34:04 16:08:02 Bakari o erasmo 2021-02-27 2021-02-27 Inpatient EL FOSSELLA, MDA MDA [id number] 11:31:18 11:31:23 MARIA FERNANDA Leesers o erasmo 2021-02-23 2021-02-23 Inpatient EL JOSE, MDA MDA [id number] 08:50:18 09:09:38 MARCIN Leesers o n 2021-02-20 2021-02-20 Inpatient EL HALM, MDA MDA [id number] MD 21:52:07 22:45:31 MAYANK Leesers o n 2021-02-19 2021-02-19 Inpatient EL HALM, MDA MDA [id number] 16:34:08 16:35:56 MAYANK Leesers o n 2021-02-19 2021-02-19 Inpatient EL HALM, MDA MDA [id number] MD 14:32:55 14:50:27 MAYANK Leesers o n 2021-02-19 2021-02-19 Inpatient EL FOSSELLA, MDA MDA [id number] 11:06:11 11:06:14 MARIA FERNANDA Leesers o erasmo 2021-02-18 2021-02-18 Inpatient EL HALM, MDA MDA [id number] 15:44:22 16:22:28 MAYANK Leesers o n 2021-02-17 2021-02-17 Inpatient EL TOD GLASS MDA MDA [id number] 03:53:53 04:06:50 Bakari o n 2021-01-21 2021-01-30 Inpatient ER ODARO, [facility] [id number] 21:38:00 18:36:00 BENEDICTO Leesers o n 2021-01-30 2021-01-30 Inpatient EL FOSSELLA, MDA MDA [id number] 15:18:04 15:18:06 MARIA FERNANDA Leesers o erasmo 2021-01-28 2021-01-28 Inpatient EL AL AMERI, MDA MDA [id number] 13:47:27 13:49:05 RASHAAD smith n 2021-01-25 2021-01-25 Inpatient EL AL AMERI, MDA MDA [id number] 20:37:26 20:37:30 RASHAAD zimmerman 2021-01-24 2021-01-24 Inpatient EL AL AMERI, MDA MDA [id number] 08:18:01 08:38:37 RASHAAD zimmerman 2021-01-22 2021-01-22 Inpatient EL AL AMERI, MDA MDA [id number] 19:02:05 19:25:15 RASHAAD smith n 2021-01-04 2021-01-19 Inpatient ER SIMBAQUEBA [facility] [id number] 11:01:00 16:25:00 Levi RAJPUT 2021-01-18 2021-01-18 Inpatient EL FOSSELLA, MDA MDA [id number] 11:15:46 11:15:49 MARIA FERNANDA zimmerman 2021-01-15 2021-01-15 Inpatient EL FOSSELLA, MDA MDA [id number] 10:54:17 10:54:19 MARIA FERNANDA zimmerman 2021-01-14 2021-01-14 Inpatient EL RAMSEY, MDA MDA [id number] 12:12:50 13:22:39 JUAREZ zimmerman 2021-01-12 2021-01-12 Inpatient EL FOSSELLA, MDA MDA [id number] 11:16:26 11:16:28 MARIA FERNANDA zimmerman 2021-01-10 2021-01-10 Inpatient EL FOSSELLA, MDA MDA [id number] 12:34:26 12:34:30 MARIA FERNANDA zimmerman 2021-01-09 2021-01-09 Inpatient EL ESTES, MDA MDA [id number] 21:30:37 21:42:18 GURPREET zimmerman 2021-01-08 2021-01-08 Inpatient EL ESTES, MDA MDA [id number] 11:15:00 12:40:27 GURPREET zimmerman 2021-01-07 2021-01-07 Inpatient EL ALEXUS, MDA MDA [id number] 09:48:34 10:43:19 BONI zimmerman 2021-01-05 2021-01-05 Inpatient EL FOSSELLA, MDA MDA [id number] 10:28:44 10:28:46 MARIA FERNANDA zimmerman 2020-12-26 2020-12-26 Outpatient EL FOSSELLA, MDA MDA [id number] 13:17:22 13:49:03 MARIA FERNANDA zimmerman 2020-12-22 2020-12-22 Outpatient EL FOSSELLA, MDA MDA [id number] 15:44:28 15:44:28 MARIA FERNANDA zimmerman 2020-12-20 2020-12-20 Outpatient EL FOSSELLA, MDA MDA [id number] 14:45:38 15:10:28 MARIA FERNANDA zimmerman 2020-12-19 2020-12-19 Outpatient EL FOSSELLA, MDA MDA [id number] 15:02:13 15:33:05 MARIA FERNANDA zimemrman 2020-12-18 2020-12-18 Outpatient EL FOSSELLA, MDA MDA [id number] 14:30:00 23:59:00 MARIA FERNANDA zimmerman 2020-12-18 2020-12-18 Outpatient EL JOSE MARRY MDA MDA [id number] 15:34:19 15:34:19 Bakari zimmerman 2020-12-18 2020-12-18 Outpatient EL FOSSELLA, MDA MDA [id number] 14:39:45 15:30:31 MARIA FERNANDA zimmerman 2020-12-15 2020-12-15 Outpatient EL FOSSELLA, MDA MDA [id number] 14:01:01 14:06:41 MARIA FERNANDA zimmerman 2020-11-20 2020-11-24 Inpatient X RUSSELL GIRALDO [facility] PUJA [id number] Univers 00:18:00 16:31:00 [facility] 2020-10-26 2020-10-26 Outpatient R [facility] [id number] Univers 09:00:00 09:00:00 [facility] 2020-10-17 2020-10-17 Outpatient R DIOGO [facility] [id number] Univers 09:30:00 09:30:00 JACKSON [facility] 2020-07-27 2020-07-27 Outpatient R UNKNOWN, [facility] [id number] Univers 14:30:00 14:30:00 ATTENDING ity [facility] 2020-07-05 2020-07-05 Outpatient EL ANAID, MDA MDA [id number] 10:29:44 10:55:21 HERRERA zimmerman 2020-04-28 2020-04-29 Inpatient HCAMN DANDRE [id number] [facility] 02:28:00 09:27:09 18 [facility] 2020-04-27 2020-04-27 Outpatient EL CORDELLELLA, MDA MDA [id number] 06:26:24 06:26:24 MARIA FERNANDA zimmerman 2020-04-25 2020-04-25 Outpatient EL FOSSELLA, MDA MDA [id number] 15:16:25 23:59:00 MARIA FERNANDA zimmerman 2020-04-25 2020-04-25 Outpatient EL PADMINI, MDA MDA [id number] 16:52:13 16:52:13 MARIA FERNANDA zimmerman 2020-04-21 2020-04-21 Outpatient EL PADMINI, MDA MDA [id number] 12:34:59 15:51:01 MARIA FERNANDA zimmerman 2020-04-17 2020-04-17 Outpatient EL ROCKY RODRIGUEZ MDA MDA [id number] 11:29:21 23:59:00 Bakari zimmerman 2020-04-17 2020-04-17 Outpatient EL MDA MDA [id number] 09:00:09 11:28:00 Bakari zimmerman 2020-04-17 2020-04-17 Outpatient EL ROSA MARIA, MDA MDA [id number] 09:38:52 11:12:52 CODY zimmerman 2020-04-14 2020-04-14 Outpatient EL MDA MDA [id number] 11:14:57 23:59:00 Bakari zimmerman 2020-04-14 2020-04-14 Outpatient EL AURELIANO EDWARD MDA MDA [id number] 12:35:21 13:51:10 Bakari zimmerman 2020-04-14 2020-04-14 Outpatient EL MDA MDA [id number] 08:26:38 11:13:00 Bakari zimmerman 2020-04-13 2020-04-13 Outpatient EL MDA MDA [id number] 15:45:00 23:59:00 Bakari zimmerman 2020-04-13 2020-04-13 Outpatient EL MDA MDA [id number] MD 13:53:11 15:44:00 Bakarijanice zimmerman 2020-04-13 2020-04-13 Outpatient EL MDA MDA [id number] MD 13:27:19 13:52:00 Bakarijanice zimmerman 2020-04-13 2020-04-13 Outpatient EL MDA MDA [id number] MD 10:45:00 13:26:00 Bakari zimmerman 2020-04-13 2020-04-13 Outpatient EL ROSA MARIA, MDA MDA [id number] MD 07:39:14 10:44:00 CODY zimmerman 2020-04-12 2020-04-12 Outpatient EL ILIESCU, MDA MDA [id number] MD 12:45:00 23:59:00 ORACIO Villegas o erasmo 2020-04-11 2020-04-11 Outpatient EL BRENDON, MDA MDA [id number] MD 11:45:00 23:59:00 WILFREDO Villegas o erasmo 2020-04-11 2020-04-11 Outpatient EL BRENDON, MDA MDA [id number] MD 11:23:21 11:23:21 WILFREDO Villegas o erasmo 2020-03-31 2020-03-31 Outpatient EL ZOEYATSally, MDA MDA [id number] 08:00:00 23:59:00 MAURICIO zimmerman 2020-03-31 2020-03-31 Outpatient EL ROSA MARIA, MDA MDA [id number] MD 08:51:09 09:59:36 CODY Villegas o erasmo 2020-03-20 2020-03-20 Outpatient EL ILIESCU, MDA MDA [id number] 10:02:47 10:02:47 ORACIO Leesers o erasmo 2020-03-20 2020-03-20 Outpatient EL REGINA, MDA MDA [id number] 09:57:25 09:57:25 HAYLEY Leesers o erasmo 2020-03-10 2020-03-10 Outpatient EL REGINA, MDA MDA [id number] 08:10:34 08:10:34 HAYLEY Leesers o erasmo 2020-03-02 2020-03-02 Outpatient EL REGINA, MDA MDA [id number] 12:40:44 23:59:00 HAYLEY Leesers o erasmo 2020-03-02 2020-03-02 Outpatient EL SHANELL, MDA MDA [id number] 10:20:00 14:05:06 ORACIO Bakari o n 2020-03-02 2020-03-02 Outpatient EL REGINA, MDA MDA [id number] 12:15:00 12:39:00 HAYLEY zimmerman 2020-03-02 2020-03-02 Outpatient EL SHANELL, MDA MDA [id number] 10:29:25 10:29:25 ORACIO Villegas o n 2020-03-02 2020-03-02 Outpatient EL MDA MDA [id number] MD 10:00:01 10:00:10 Bakarijanice zimmerman 2020-02-29 2020-02-29 Outpatient EL MDA MDA [id number] MD 13:58:52 14:24:33 Bakarijanice zimmerman 2019-08-26 2019-08-26 Outpatient PASCALE Jaimse [facility] [id number] [facility] 12:48:00 12:48:00 [facility] 2019-08-12 2019-08-15 Inpatient HCAMN DANDRE [id number] [facility] 20:09:00 22:33:31 69 [facility] Results Test Description Test Time Test Comments Results Result [facility] e Comments Fractionated 2022-09-13 [employer] [facility] Bilirubin 14:14:11 Total<0.3<=1. Willis CARDENAS 2 mg/dLMAYS [facility] Fractionated 2022-09-13 [employer] o f Bilirubin 14:14:11 Total<0.3<=1. Willis CARDENAS 2 mg/dLMAYS [facility] Fractionated 2022-09-13 [employer] o f Bilirubin 14:14:11 Total<0.3<=1. Willis CARDENAS 2 mg/dLMAYS [facility] Fractionated 2022-09-13 [employer] o f Bilirubin 14:14:11 Total<0.3<=1. Willis CARDENAS 2 mg/dLMAYS [facility] Fractionated 2022-09-13 [employer] o f Bilirubin 14:14:11 Total<0.3<=1. Willis CARDENAS 2 mg/dLMAYS [facility] Glomerular Filtration Rate 2022-09-13 14:14:10 Test Item Value Reference Range Interpretation Comme nts eGFR (test code = 105 See_Comment [place]cr [place] [address]6436-2) the 2020 CKD-EP I creatinine equation using [...] a for CKD. Testing Perform ed at [facility] Identifier [facility], [address], [address], [place], [place] [address] [Automated message] The sy stem which generated this result transmitted ref erence range: >=60 mL/min/1.7 3 sq. m. The reference range was not used to interpret this result as normal/abnormal . PAIGE (test code = Schedule same day PAIGE) tests[facility] [place] [place] 2022-09-13 14:14:10 Test Item Value Reference Range Interpretation Comments eGFR (test 105 See_Comment The eGFRcr is c alculated code = with the 2020 C KD-EPI 42003-5) creatinine equa tion using creatinin e, patient's [...] eria for CKD. Testing Pe rformed at [facility], [address], [address], [place] [address] [Autom ated message] The sy stem which generated this result transmit lakhwinder reference range : >=60 mL/min/1.73 sq. m. The reference range was not used to interpr et this result as normal/abnormal . PAIGE (test Schedule same day code = PAIGE) tests[facility]clinic [facility] [place] [facility] 2022-09-13 14:14:10 Test Item Value Reference Range Interpretation Comments eGFR (test 105 See_Comment The eGFRcr is c alculated code = with the 2020 C KD-EPI 35293-2) creatinine equa tion using creatinin e, patient's [...] eria for CKD. Testing Pe rformed at [facility], [address], [address], [place] [address] [Autom ated message] The sy stem which generated this result transmit lakhwinder reference range : >=60 mL/min/1.73 sq. m. The reference range was not used to interpr et this result as normal/abnormal . PAIGE (test Schedule same day code = PAIGE) [facility] 20[facility] 14:14:10 Test Item Value Reference Range Interpretation Comments eGFR (test 105 See_Comment The eGFRcr is c alculated code = with the 2020 C KD-EPI 73293-1) creatinine equa tion using creatinin e, patient's [...] eria for CKD. Testing Pe rformed at [facility], [address], [address], [place] [address] [Autom ated message] The sy stem which generated this result transmit lakhwinder reference range : >=60 mL/min/1.73 sq. m. The reference range was not used to interpr et this result as normal/abnormal . PAIGE (test Schedule same day code = PAIGE) tests[facility] 2022-09-13 14:14:10 Test Item Value Reference Range Interpretation Comments eGFR (test 105 See_Comment The eGFRcr is c alculated code = with the 2020 C KD-EPI 70933-9) creatinine equa tion using creatinin e, patient's [...] eria for CKD. Testing Pe rformed at [facility], [address] [place] [address], [address], [place] [address] [Autom ated message] The sy stem which generated this result transmit lakhwinder reference range : >=60 mL/min/1.73 sq. m. The reference range was not used to interpr et this result as normal/abnormal . PAIGE (test Schedule same day code = PAIGE) tests[facility] [id number] 14:14:09 Test Item Value Reference Range Interpretation Comments Total Protein 7.2 g/dL 6.4-8.3 Testing Perfor med (test code = at [facility] 2885-2) Identifier [facility], [address], [address], [place], [place] [address] PAIGE (test code = Schedule same day PAIGE) tests[facility]t [facility] [id number] 14:14:09 Test Item Value Reference Range Interpretation Comments Total Protein 7.2 g/dL 6.4-8.3 Testing Perfor med (test code = at [facility] 2885-2) Identifier [facility], [address], [address], [place] [address] PAIGE (test code = Schedule same day PAIGE) [facility] [id number] 14:14:09 Test Item Value Reference Range Interpretation Comments Total Protein 7.2 g/dL 6.4-8.3 Testing Perfor med (test code = at [facility] 2885-2) Identifier [facility], [address], [address], [place] [address] PAIGE (test code = Schedule same day PAIGE) tests[facility] [id number] 14:14:09 Test Item Value Reference Range Interpretation Comments Total Protein 7.2 g/dL 6.4-8.3 Testing Perfor med (test code = at [facility] 2885-2) Identifier [facility], [address], [address], [place] [address] PAIGE (test code = Schedule same day PAIGE) tests[facility]clinic [facility] [id number] 14:14:09 Test Item Value Reference Range Interpretation Comments Total Protein 7.2 g/dL 6.4-8.3 Testing Perfor med (test code = at [facility] 2885-2) [facility], [facility] [address], [address], [place] [address] PAIGE (test code = Schedule same day PAIGE) tests[facility]clinic [facility] [id number] 14:14:08 Test Item Value Reference Range Interpretation Comments Calcium Lvl (test 9.4 mg/dL 8.4-10.2 Testing Pe rformed code = 42531-1) at B Lab Identifier [facility], [address], [address], [place] [address] PAIGE (test code = Schedule same day PAIGE) tests[facility]clinic [facility] [id number] 14:14:08 Test Item Value Reference Range Interpretation Comments Calcium Lvl (test 9.4 mg/dL 8.4-10.2 Testing Pe rformed code = 92786-4) at [facility], [address] [place] [address], [address], [place] [address] PAIGE (test code = Schedule same day PAIGE) tests[facility]clinic [facility] [id number] 14:14:08 Test Item Value Reference Range Interpretation Comments Calcium Lvl (test 9.4 mg/dL 8.4-10.2 Testing Pe rformed code = 51492-9) at [facility] Identifier [facility], [address] [place] [address], [address], [place] [address] PAIGE (test code = Schedule same day PAIGE) tests[facility]clinic [facility] [id number] 14:14:08 Test Item Value Reference Range Interpretation Comments Calcium Lvl (test 9.4 mg/dL 8.4-10.2 Testing Pe rformed code = 63133-7) at [facility], [address] [place] [address], [address], [place] [address] PAIGE (test code = Schedule same day PAIGE) tests[facility]clinic [facility] [id number] 14:14:08 Test Item Value Reference Range Interpretation Comments Calcium Lvl (test 9.4 mg/dL 8.4-10.2 Testing Pe rformed code = 73995-9) at [facility], [address] [place] [address], [address], [place] [address] PAIGE (test code = Schedule same day PAIGE) tests[facility]clinic [facility] Center[facility]aline [id number] 14:14:07 Test Item Value Reference Range Interpretation Comments Alk Phos (test 94 U/L 40-129 Testing Perfo rmed at code = 6768-6) [facility], [address] [place] [address], [address], [place] [address] PAIGE (test code Schedule same day = PAIGE) tests/clinic [facility] CenterAl[facility]aline [id number] 14:14:07 Test Item Value Reference Range Interpretation Comments Alk Phos (test 94 U/L 40-129 Testing Perfo rmed at code = 6768-6) [facility], [address], [address], [place] [address] PAIGE (test code Schedule same day = PAIGE) tests/clinic [facility] Center[facility]aline [id number] 14:14:07 Test Item Value Reference Range Interpretation Comments Alk Phos (test 94 U/L 40-129 Testing Perfo rmed at code = 6768-6) [facility], [address], [place] [address] PAIGE (test code Schedule same day = PAIGE) tests/clinic [facility] CenterAl[facility]aline [id number] 14:14:07 Test Item Value Reference Range Interpretation Comments Alk Phos (test 94 U/L 40-129 Testing Perfo rmed at code = 6768-6) [facility], [address], [address], [place] [address] PAIGE (test code Schedule same day = PAIGE) tests/clinic [facility] CenterAl[facility]aline [id number] 14:14:07 Test Item Value Reference Range Interpretation Comments Alk Phos (test 94 U/L 40-129 Testing Perfo rmed at code = 6768-6) [facility], [address], [place] [address] PAIGE (test code Schedule same day = PAIGE) tests/clinic [facility] CenterElectrolyte [id number] 14:14:06 Test Item Value Reference Range Interpretation Comments Sodium Lvl (test 141 See_Comment Testing Per formed code = 2951-2) at [facility] Identifier [facility], [address], [address], [place], [place] [address] [Automated mess age] The system [employer] generated this result transmit lakhwinder reference range : 136 - 145 mEq/L . The reference r jose was not used to interpret this result as normal/abnormal . Potassium Lvl 3.9 See_Comment Testing Perfor med (test code = at [facility] 2823-3) Identifier [facility], [address], [address], [place] [address] [Automated mess age] The system [employer] generated this result transmit lakhwinder reference range : 3.5 - 5.1 mEq/L . The reference r jose was not used to interpret this result as normal/abnormal . Chloride (test 105 See_Comment Testing Perfo rmed code = 2075-0) at [facility] Identifier [facility], [address], [address], [place] [address] [Automated mess age] The system [employer] generated this result transmit lakhwinder reference range : 98 - 107 mEq/L. Th e reference range was not used to interpret this result as normal/abnormal . CO2 (test code = 25 See_Comment Testing Per formed 2028-02) at [facility] Identifier [facility], [facility] [address], [place] [address] [Automated mess age] The system [employer] generated this result transmit lakhwinder reference range : 22 - 29 mEq/L. The reference range was not used to interpret this result as normal/abnormal . Anion Gap (test 11 See_Comment Testing Perf ormed code = 29603-7) at [facility] Identifier [facility], [address], [address], [place] [address] [Automated mess age] The system [employer] generated this result transmit lakhwinder reference range : 4 - 14 mEq/L. The reference range was not used to interpret this result as normal/abnormal . PAIGE (test code = Schedule same day PAIGE) tests[facility] [id number] 14:14:06 Test Item Value Reference Range Interpretation Comments Sodium Lvl (test 141 See_Comment Testing Per formed code = 2951-2) at [facility] Identifier [facility], [facility], [address], [place] [address] [Automated mess age] The system [employer] generated this result transmit lakhwinder reference range : 136 - 145 mEq/L . The reference r jose was not used to interpret this result as normal/abnormal . Potassium Lvl 3.9 See_Comment Testing Perfor med (test code = at [facility] 2823-3) [facility], [facility], [address], [place] [address] [Automated mess age] The system whic h generated this result transmit lakhwinder reference range : 3.5 - 5.1 mEq/L . The reference r jose was not used to interpret this result as normal/abnormal . Chloride (test 105 See_Comment Testing Perfo rmed code = 2075-0) at [facility] Identifier [facility], [address], [address], [place] [address] [Automated mess age] The system [employer] generated this result transmit lakhwinder reference range : 98 - 107 mEq/L. Th e reference range was not used to interpret this result as normal/abnormal . CO2 (test code = 25 See_Comment Testing Per formed 2028-02) at [facility], [address] [place] [address], [address], [place] [address] [Automated mess age] The system [employer] generated this result transmit lakhwinder reference range : 22 - 29 mEq/L. The reference range was not used to interpret this result as normal/abnormal . Anion Gap (test 11 See_Comment Testing Perf ormed code = 69129-2) at [facility] Identifier [facility], [facility], [place] [address] [Automated mess age] The system [employer] generated this result transmit lakhwinder reference range : 4 - 14 mEq/L. The reference range was not used to interpret this result as normal/abnormal . PAIGE (test code = Schedule same day PAIGE) tests[facility] [id number] 14:14:06 Test Item Value Reference Range Interpretation Comments Sodium Lvl (test 141 See_Comment Testing Per formed code = 2951-2) at [facility] Identifier [facility], [facility], [place] [address] [Automated mess age] The system [employer] generated this result transmit lakhwinder reference range : 136 - 145 mEq/L . The reference r jose was not used to interpret this result as normal/abnormal . Potassium Lvl 3.9 See_Comment Testing Perfor med (test code = at [facility] 2823-3) Identifier [facility], [facility], [address], [place] [address] [Automated mess age] The system [employer] generated this result transmit lakhwinder reference range : 3.5 - 5.1 mEq/L . The reference r jose was not used to interpret this result as normal/abnormal . Chloride (test 105 See_Comment Testing Perfo rmed code = 2075-0) at [facility], [facility], [address], [place], [place] [address] [Automated mess age] The system [employer] generated this result transmit lakhwinder reference range : 98 - 107 mEq/L. Th e reference range was not used to interpret this result as normal/abnormal . CO2 (test code = 25 See_Comment Testing Per formed 2028-02) at [facility], [address] [place] [address], [address], [place], [place] [address] [Automated mess age] The system [employer] generated this result transmit lakhwinder reference range : 22 - 29 mEq/L. The reference range was not used to interpret this result as normal/abnormal . Anion Gap (test 11 See_Comment Testing Perf ormed code = 70640-9) at [facility], [address] [place] [address], [address], [place], [place] [address] [Automated mess age] The system [employer] generated this result transmit lakhwinder reference range : 4 - 14 mEq/L. The reference range was not used to interpret this result as normal/abnormal . PAIGE (test code = Schedule same day PAIGE) tests/clinic appt [facility] [place] [id number] 14:14:06 Test Item Value Reference Range Interpretation Comments Sodium Lvl (test 141 See_Comment Testing Per formed code = 2951-2) at [facility], [address] [place] [address], [address], [place] [address] [Automated mess age] The system [employer] generated this result transmit lakhwinder reference range : 136 - 145 mEq/L . The reference r jose was not used to interpret this result as normal/abnormal . Potassium Lvl 3.9 See_Comment Testing Perfor med (test code = at [facility] 2823-3) [facility], [address] [place] [address], [address], [place] [address] [Automated mess age] The system [employer] generated this result transmit lakhwinder reference range : 3.5 - 5.1 mEq/L . The reference r jose was not used to interpret this result as normal/abnormal . Chloride (test 105 See_Comment Testing Perfo rmed code = 2075-0) at [facility] Lab [facility], [address] [place] [address], [address], [place] [address] [Automated mess age] The system [employer] generated this result transmit lakhwinder reference range : 98 - 107 mEq/L. Th e reference range was not used to interpret this result as normal/abnormal . CO2 (test code = 25 See_Comment Testing Per formed 2028-02) at [facility] Lab [facility], [address] [place] [address], [address], [place] [address] [Automated mess age] The system [employer] generated this result transmit lakhwinder reference range : 22 - 29 mEq/L. The reference range was not used to interpret this result as normal/abnormal . Anion Gap (test 11 See_Comment Testing Perf ormed code = 57239-9) at [facility], [address] [place] [address], [address], [place] [address] [Automated mess age] The system [employer] generated this result transmit lakhwinder reference range : 4 - 14 mEq/L. The reference range was not used to interpret this result as normal/abnormal . PAIGE (test code = Schedule same day PAIGE) tests/clinic appt [facility] [place] [id number] 14:14:06 Test Item Value Reference Range Interpretation Comments Sodium Lvl (test 141 See_Comment Testing Per formed code = 2951-2) at [facility], [address] [place] [address], [address], [place] [address] [Automated mess age] The system [employer] generated this result transmit lakhwinder reference range : 136 - 145 mEq/L . The reference r jose was not used to interpret this result as normal/abnormal . Potassium Lvl 3.9 See_Comment Testing Perfor med (test code = at [facility] Lab 2823-3) [address], [address], [place] [address] [Automated mess age] The system [employer] generated this result transmit lakhwinder reference range : 3.5 - 5.1 mEq/L . The reference r jose was not used to interpret this result as normal/abnormal . Chloride (test 105 See_Comment Testing Perfo rmed code = 5-0) at [facility], [address] [facility], [address], [place] [address] [Automated mess age] The system [employer] generated this result transmit lakhwinder reference range : 98 - 107 mEq/L. Th e reference range was not used to interpret this result as normal/abnormal . CO2 (test code = 25 See_Comment Testing Per formed 2028-02) at [facility], [facility], [address], [place], [place] [address] [Automated mess age] The system [employer] generated this result transmit lakhwinder reference range : 22 - 29 mEq/L. The reference range was not used to interpret this result as normal/abnormal . Anion Gap (test 11 See_Comment Testing Perf ormed code = 14437-5) at [facility], [facility], [address], [place] [address] [Automated mess age] The system [employer] generated this result transmit lakhwinder reference range : 4 - 14 mEq/L. The reference range was not used to interpret this result as normal/abnormal . PAIGE (test code = Schedule same day PAIGE) [facility] [id number] 14:14:05 Test Item Value Reference Range Interpretation Comments Albumin Lvl (test 4.0 See_Comment Testing Pe rformed at code = 1751-7) [facility] Ambul [facility], [facility], [address], [place] [address] [Automate d message] The sy stem which generated this result transmit lakhwinder reference range : 3.5 - 5.2 gm/dL. Th e reference range was not used to interpret this result as normal/abnormal . PAIGE (test code = Schedule same day APIGE) tests[facility]inic [facility] [id number] 14:14:05 Test Item Value Reference Range Interpretation Comments Albumin Lvl (test 4.0 See_Comment Testing Pe rformed at code = 1751-7) [facility] Amb[facility], [facility], [address], [place] [address] [Automate d message] The sy stem which generated this result transmit lakhwinder reference range : 3.5 - 5.2 gm/dL. Th e reference range was not used to interpret this result as normal/abnormal . PAIGE (test code = Schedule same day PAIGE) tests[facility]inic [facility] [id number] 14:14:05 Test Item Value Reference Range Interpretation Comments Albumin Lvl (test 4.0 See_Comment Testing Pe rformed at code = 1751-7) [facility], [address], [address], [place] [address] [Automate d message] The sy stem which generated this result transmit lakhwinder reference range : 3.5 - 5.2 gm/dL. Th e reference range was not used to interpret this result as normal/abnormal . PAIGE (test code = Schedule same day PAIGE) tests[facility]inic [facility] [id number] 14:14:05 Test Item Value Reference Range Interpretation Comments Albumin Lvl (test 4.0 See_Comment Testing Pe rformed at code = 1751-7) [facility], [address], [address], [place] [address] [Automate d message] The sy stem which generated this result transmit lakhwinder reference range : 3.5 - 5.2 gm/dL. Th e reference range was not used to interpret this result as normal/abnormal . PAIGE (test code = Schedule same day PAIGE) tests[facility]inic [facility] [id number] 14:14:05 Test Item Value Reference Range Interpretation Comments Albumin Lvl (test 4.0 See_Comment Testing Pe rformed at code = 1751-7) [facility], [address], [address], [place] [address] [Automate d message] The sy stem which generated this result transmit lakhwinder reference range : 3.5 - 5.2 gm/dL. Th e reference range was not used to interpret this result as normal/abnormal . PAIGE (test code = Schedule same day PAIGE) tests[facility]inic [facility] Aminotransferase 2022-09-13 14:14:04 Test Item Value Reference Range Interpretation Comments AST (test code 12 U/L <=40 Testing Perfo rmed at = 1920-8) [facility], [address], [address], [place] [address] PAIGE (test code Schedule same day = PAIGE) tests[facility]inic [facility] Aminotransferase 2022-09-13 14:14:04 Test Item Value Reference Range Interpretation Comments AST (test code 12 U/L <=40 Testing Perfo rmed at = 1920-8) [facility], [address], [address], [place] [address] PAIGE (test code Schedule same day = PAIGE) tests[facility]inic [facility] Aminotransferase 2022-09-13 14:14:04 Test Item Value Reference Range Interpretation Comments AST (test code 12 U/L <=40 Testing Perfo rmed at = 1920-8) [facility], [address], [address], [place] [address] PAIGE (test code Schedule same day = PAIGE) tests[facility]clinic [facility] Aminotransferase 2022-09-13 14:14:04 Test Item Value Reference Range Interpretation Comments AST (test code 12 U/L <=40 Testing Perfo rmed at = 1920-8) [facility], [address], [address], [place] [address] PAIGE (test code Schedule same day = PAIGE) tests[facility]clinic [facility] Aminotransferase 2022-09-13 14:14:04 Test Item Value Reference Range Interpretation Comments AST (test code 12 U/L <=40 Testing Perfo rmed at = 1920-8) [facility], [address], [address], [place] [address] PAIGE (test code Schedule same day = PAIGE) tests[facility]clinic [facility] Center[facility]-17 14:14:03 Test Item Value Reference Range Interpretation Comments ALT (test code 7 U/L <=41 Testing Perfo rmed at = 1742-6) [facility], [address], [address], [place] [address] PAIGE (test code Schedule same day = PAIGE) tests/clinic [place] [id number] 14:14:03 Test Item Value Reference Range Interpretation Comments ALT (test code 7 U/L <=41 Testing Perfo rmed at = 1742-6) [facility], [address], [address], [place] [address] PAIGE (test code Schedule same day = PAIGE) tests/clinic [place] [id number] 14:14:03 Test Item Value Reference Range Interpretation Comments ALT (test code 7 U/L <=41 Testing Perfo rmed at = 1742-6) [facility], [address], [address], [place] [address] PAIGE (test code Schedule same day = PAIGE) tests/clinic [place] [id number] 14:14:03 Test Item Value Reference Range Interpretation Comments ALT (test code 7 U/L <=41 Testing Perfo rmed at = 1742-6) [facility], [address], [address], [place] [address] PAIGE (test code Schedule same day = PAIGE) tests/clinic [place] [id number] 14:14:03 Test Item Value Reference Range Interpretation Comments ALT (test code 7 U/L <=41 Testing Perfo rmed at = 1742-6) [facility], [address], [address], [place] [address] PAIGE (test code Schedule same day = PAIGE) tests/clinic [facility].Serum [id number] 14:14:01 Test Item Value Reference Range Interpretation Comments Creatinine (test code 0.62 mg/dL 0.67-1.17 L Testin g Performed = 2160-0) at [facility], [address], [address], [place], [place] [address] PAIGE (test code = PAIGE) Schedule same day tests/clinic appt Lab Interpretation Abnormal (test code = 74414-0) [facility].Serum [id number] 14:14:01 Test Item Value Reference Range Interpretation Comments Creatinine (test code 0.62 mg/dL 0.67-1.17 L Testin g Performed = 2160-0) at [facility], [address] [place] [address], [address], [place] [address] PAIGE (test code = PAIGE) Schedule same day tests/clinic appt Lab Interpretation Abnormal (test code = 80511-2) [facility].Serum [id number] 14:14:01 Test Item Value Reference Range Interpretation Comments Creatinine (test code 0.62 mg/dL 0.67-1.17 L Testin g Performed = 2160-0) at [facility], [address] [place] [address], [address], [place] [address] PAIGE (test code = PAIGE) Schedule same day tests/clinic appt Lab Interpretation Abnormal (test code = 59120-4) [facility].Serum [id number] 14:14:01 Test Item Value Reference Range Interpretation Comments Creatinine (test code 0.62 mg/dL 0.67-1.17 L Testin g Performed = 2160-0) at [facility], [address] [place] [address], [address], [place] [address] PAIGE (test code = PAIGE) Schedule same day tests/clinic appt Lab Interpretation Abnormal (test code = 16390-7) [facility].Serum [id number] 14:14:01 Test Item Value Reference Range Interpretation Comments Creatinine (test code 0.62 mg/dL 0.67-1.17 L Testin g Performed = 2160-0) at [facility], [address] [place] [address], [address], [place] [address] PAIGE (test code = PAIGE) Schedule same day tests/clinic appt Lab Interpretation Abnormal (test code = 06129-8) [facility] 14:14:00 Test Item Value Reference Range Interpretation Comments BUN (test code 10 mg/dL 6-23 Testing Perfo rmed at = 3094-0) [facility], [address], [address], [place] [address] PAIGE (test code Schedule same day = PAIGE) tests[facility]inic [facility] 14:14:00 Test Item Value Reference Range Interpretation Comments BUN (test code 10 mg/dL 6-23 Testing Perfo rmed at = 3094-0) [facility], [address], [address], [place] [address] PAIGE (test code Schedule same day = PAIGE) tests[facility]clinic [facility] 14:14:00 Test Item Value Reference Range Interpretation Comments BUN (test code 10 mg/dL 6-23 Testing Perfo rmed at = 3094-0) [facility], [address], [address], [place] [address] PAIGE (test code Schedule same day = PAIGE) tests[facility]clinic [facility] 14:14:00 Test Item Value Reference Range Interpretation Comments BUN (test code 10 mg/dL 6-23 Testing Perfo rmed at = 3094-0) [facility], [address], [address], [place] [address] PAIGE (test code Schedule same day = PAIGE) tests[facility]clinic [facility] 14:14:00 Test Item Value Reference Range Interpretation Comments BUN (test code 10 mg/dL 6-23 Testing Perfo rmed at = 3094-0) [facility], [address], [address], [place] [address] PAIGE (test code Schedule same day = PAIGE) tests[facility]clinic [facility] [id number] 14:13:59 Test Item Value Reference Range Interpretation Comments Glucose Level (test 102 mg/dL 70-99 H Effectiv e 01/24/16, code = 2345-7) the glucose reference intervals have been updated ba sed on [place] [employer] guidelines (Standards of Medical Care in Diabetes 2016. Diabetes Care 2016; 39: S13-S22).Fastin g blood glucose:Normal: 70-99 mg/dLImpaired fasting glucose (increased risk for diabetes or pre-diabetes): 100-125 mg/dLDiabetes mellitus: >/=1 26 mg/dL Random bl ood glucose:Normal: 70-199 mg/dLNot e: Random glucose >100 mg/dL is associated with increased risk for diabetes Testin g Performed at [facility], [facility], [address], [place] [address] PAIGE (test code = PAIGE) Schedule same day tests/clinic appt Lab Interpretation Abnormal (test code = 70426-7) [facility] [id number] 14:13:59 Test Item Value Reference Range Interpretation Comments Glucose Level (test 102 mg/dL 70-99 H Effectiv e 01/24/16, code = 2345-7) the glucose reference intervals have been updated ba sed on [place] [employer] guidelines (Standards of Medical Care in Diabetes 2016. Diabetes Care 2016; 39: S13-S22).Fastin g blood glucose:Normal: 70-99 mg/dLImpaired fasting glucose (increased risk for diabetes or pre-diabetes): 100-125 mg/dLDiabetes mellitus: >/=12 6 mg/dL Random bl ood glucose:Normal: 70-199 mg/dLNot e: Random glucose >100 mg/dL is associated with increased risk for diabetes Testin g Performed at [facility], [address] [facility], [address], [facility] [address] PAIGE (test code = PAIGE) Schedule same day tests/clinic appt Lab Interpretation Abnormal (test code = 07258-2) [facility] [id number] 14:13:59 Test Item Value Reference Range Interpretation Comments Glucose Level (test 102 mg/dL 70-99 H Effectiv e 01/24/16, code = 2345-7) the glucose reference intervals have been updated ba sed on [place] [employer] guidelines (Standards of Medical Care in Diabetes 2016. Diabetes Care 2016; 39: S13-S22).Fastin g blood glucose:Normal: 70-99 mg/dLImpaired fasting glucose (increased risk for diabetes or pre-diabetes): 100-125 mg/dLDiabetes mellitus: >/=12 6 mg/dL Random bl ood glucose:Normal: 70-199 mg/dLNot e: Random glucose >100 mg/dL is associated with increased risk for diabetes Testin g Performed at [facility], [address] [place] [address], [address], [facility] [place] [address] PAIGE (test code = PAIGE) Schedule same day tests/clinic appt Lab Interpretation Abnormal (test code = 71751-2) [facility] [id number] 14:13:59 Test Item Value Reference Range Interpretation Comments Glucose Level (test 102 mg/dL 70-99 H Effectiv e 01/24/16, code = 2345-7) the glucose reference intervals have been updated ba sed on [place] [employer] guidelines (Standards of Medical Care in Diabetes 2016. Diabetes Care 2016; 39: S13-S22).Fastin g blood glucose:Normal: 70-99 mg/dLImpaired fasting glucose (increased risk for diabetes or pre-diabetes): 100-125 mg/dLDiabetes mellitus: >/=12 6 mg/dL Random bl ood glucose:Normal: 70-199 mg/dLNot e: Random glucose >100 mg/dL is associated with increased risk for diabetes Testin g Performed at [facility], [address] [place] [address], [address], [facility] [place] [address] PAIGE (test code = PAIGE) Schedule same day tests/clinic appt Lab Interpretation Abnormal (test code = 04286-2) [facility] [id number] 14:13:59 Test Item Value Reference Range Interpretation Comments Glucose Level (test 102 mg/dL 70-99 H Effectiv e 01/24/16, code = 2345-7) the glucose reference intervals have been updated ba sed on [place] [employer] guidelines (Standards of Medical Care in Diabetes 2016. Diabetes Care 2016; 39: S13-S22).Fastin g blood glucose:Normal: 70-99 mg/dLImpaired fasting glucose (increased risk for diabetes or pre-diabetes): 100-125 mg/dLDiabetes mellitus: >/=12 6 mg/dL Random bl ood glucose:Normal: 70-199 mg/dLNot e: Random glucose >100 mg/dL is associated with increased risk for diabetes Testin g Performed at [facility], [address] [facility], [address], [place] [address] PAIGE (test code = PAIGE) Schedule same day tests/clinic appt Lab Interpretation Abnormal (test code = 36219-7) [facility] [id number] 13:41:08 Test Item Value Reference Range Interpretation Comments POC Crea (test 0.6 mg/dL 0.6-1.3 Medications, code = 68630-9) especially h ydroxyurea or supplements, such as [...] 106 See_Comment The eGFRcr is code = 21817) calculated wit h the 2020 CKD-EPI creatinine equa tion using creatinin e, patient's age, and sex for adults 18 y ears of age and older. Other factors, especi ally muscle mass, ma y affect accuracy and need to be considered.Acco rding to the Kidney D isease: Improving Globa l Outcomes (KDIGO ) CKD Work Group 2012 Clinical Practi ce Guideline, electronic data processing auditor henrry kidney disease (CKD) is defined as [...] Yes (test code = 6672) Performing Lab [facility] (test code = [facility] [place] [address]) Clinical Lab, [address] [facility], [place], [place] [address]; Manager Trust: Aletha Arciniega MD; Waived Point of Care Testing - Rosina real MD [facility] [id number] 13:41:08 Test Item Value Reference Range Interpretation Comments POC Crea (test 0.6 mg/dL 0.6-1.3 Medications, code = 82119-2) especially h ydroxyurea or supplements, such as [...] 106 See_Comment The eGFRcr is code = 28790) calculated wit h the 2020 CKD-EPI creatinine equa tion using creatinin e, patient's age, and sex for adults 18 y ears of age and older. Other factors, especi ally muscle mass, ma y affect accuracy and need to be considered.Acco rding to the Kidney D isease: Improving Globa l Outcomes (KDIGO ) CKD Work Group 2012 Clinical Practi ce Guideline, electronic data processing auditor henrry kidney disease (CKD) is defined as [...] Yes (test code = 6672) Performing Lab [facility] (test code = [facility] [place] [address]) Clinical Lab, [address] [place] [address], [place], [place] [address]; Manager Trust: Aletha Arciniega MD; Waived Point of Care Testing - Rosina real MD [facility] [id number] 13:41:08 Test Item Value Reference Range Interpretation Comments POC Crea (test 0.6 mg/dL 0.6-1.3 Medications, code = 74048-7) especially h ydroxyurea or supplements, such as [...] 106 See_Comment The eGFRcr is code = 92465) calculated wit h the 2020 CKD-EPI creatinine equa tion using creatinin e, patient's age, and sex for adults 18 y ears of age and older. Other factors, especi ally muscle mass, ma y affect accuracy and need to be considered.Acco rding to the Kidney D isease: Improving Globa l Outcomes (KDIGO ) CKD Work Group 2012 Clinical Practi ce Guideline, electronic data processing auditor henrry kidney disease (CKD) is defined as t he abnormalities o f kidney structur e or function, prese nt for more than 3 mon ths, with implicatio ns for health. CKD baylee uld be classified by c kota, GFR category, a nd albuminuria cat egory. [...] nor G2 fulfill crit eria for CKD. [Auto mated message] The sy stem which generated this result transmit lakhwinder reference range : >=60 mL/min/1.73 sq. m. The reference range was not used to int erpret this result as normal/abnormal . POC Clean Dev Yes (test code = 6672) Performing Lab [facility] (test code = [facility] [place] [address]) Clinical Lab, [address] [facility], [place] [address]; Manager Trust: Aletha Arciniega MD; Waived Point of Care Testing - Rosina real MD [facility] [id number] 13:41:08 Test Item Value Reference Range Interpretation Comments POC Crea (test 0.6 mg/dL 0.6-1.3 Medications, code = 27123-8) especially h ydroxyurea or supplements, such as [...] 106 See_Comment The eGFRcr is code = 04979) calculated wit h the 2020 CKD-EPI creatinine equa tion using creatinin e, patient's age, and sex for adults 18 y ears of age and older. Other factors, especi ally muscle mass, ma y affect accuracy and need to be considered.Acco rding to the Kidney D isease: Improving Globa l Outcomes (KDIGO ) CKD Work Group 2012 Clinical Practi ce Guideline, electronic data processing auditor henrry kidney disease (CKD) is defined as t he abnormalities o f kidney structur e or function, prese nt for more than 3 mon ths, with implicatio ns for health. CKD baylee uld be classified by c kota, GFR category, a nd albuminuria cat egory. [...] code = 6672) Performing Lab [facility] (test code = [facility] [place] [address]) Clinical Lab, [address] [facility], [place], [place] [address]; Manager Trust: Aletha Arciniega MD; Waived Point of Care Testing - Rosina real MD [facility] [id number] 13:41:08 Test Item Value Reference Range Interpretation Comments POC Crea (test 0.6 mg/dL 0.6-1.3 Medications, code = 17742-7) especially h ydroxyurea or supplements, such as [...] 106 See_Comment The eGFRcr is code = 19447) calculated wit h the 2020 CKD-EPI creatinine equa tion using creatinin e, patient's age, and sex for adults 18 y ears of age and older. Other factors, especi ally muscle mass, ma y affect accuracy and need to be considered.Acco rding to the Kidney D isease: Improving Globa l Outcomes (KDIGO ) CKD Work Group 2012 Clinical Practi ce Guideline, electronic data processing auditor henrry kidney disease (CKD) is defined as [...] Yes (test code = 6672) Performing Lab [facility] (test code = [facility] [place] [address]) Clinical Lab, [address] [place] [address], [place], [place] [address]; Manager Trust: Aletha Arciniega MD; Waived Point of Care Testing - Rosina real MD [facility] CljtspSbrekhvrnqfv8991-37-90 13:32:19 Test Item Value Reference Range Interpretation Comments Neutrophil % (test 48.8 % 42.0-66.0 As part o f code = 770-8) Differential performed at [facility] Care [facility], [facility], [address], [place], [place] [address] Lymphocyte % (test 34.8 % 24.0-44.0 code = 736-9) Monocyte % (test code 9.1 % 2.0-7.0 H = 5905-5) Eosinophil % (test 6.6 % 1.0-4.0 H code = 713-8) Basophil % (test code 0.7 % 0.0-1.0 = 706-2) IGRE % (test code = 0.0 % 0.0-0.4 IGRE % c ount 83345-1) includes Metamyelocytes, Myelocytes, and Promyelocytes. As part of Differential performed at [facility], [address] [place] [address], [address], [place] [address] Neutrophil Abs (test 3.37 K/uL 1.70-7.30 code = 751-8) Lymphocyte Abs (test 2.41 K/uL 1.00-4.80 code = 731-0) Monocyte Abs (test 0.63 K/uL 0.08-0.70 code = 742-7) Eosinophil Abs (test 0.46 K/uL 0.04-0.40 H code = 711-2) Basophil Abs (test 0.05 K/uL 0.00-0.10 code = 704-7) IG Abs (test code = 0.00 K/uL 0.00-0.04 49290-8) PAIGE (test code = PAIGE) Schedule same day tests/clinic appt Lab Interpretation Abnormal (test code = 56985-7) [facility] ThjdhcZrngshikghpp3337-63-83 13:32:19 Test Item Value Reference Range Interpretation Comments Neutrophil % (test 48.8 % 42.0-66.0 As part o f code = 770-8) Differential performed at [facility], [address] [facility], [address], [place] [address] Lymphocyte % (test 34.8 % 24.0-44.0 code = 736-9) Monocyte % (test code 9.1 % 2.0-7.0 H = 5905-5) Eosinophil % (test 6.6 % 1.0-4.0 H code = 713-8) Basophil % (test code 0.7 % 0.0-1.0 = 706-2) IGRE % (test code = 0.0 % 0.0-0.4 IGRE % c ount 81703-3) includes Metamyelocytes, Myelocytes, and Promyelocytes. As part of Differential performed at [facility], [address] [facility], [address], [place] [address] Neutrophil Abs (test 3.37 K/uL 1.70-7.30 code = 751-8) Lymphocyte Abs (test 2.41 K/uL 1.00-4.80 code = 731-0) Monocyte Abs (test 0.63 K/uL 0.08-0.70 code = 742-7) Eosinophil Abs (test 0.46 K/uL 0.04-0.40 H code = 711-2) Basophil Abs (test 0.05 K/uL 0.00-0.10 code = 704-7) IG Abs (test code = 0.00 K/uL 0.00-0.04 95382-3) PAIGE (test code = PAIGE) Schedule same day tests/clinic appt Lab Interpretation Abnormal (test code = 97757-8) [facility] 13:32:19 Test Item Value Reference Range Interpretation Comments Neutrophil % (test 48.8 % 42.0-66.0 As part o f code = 770-8) Differential performed at [facility], [address] [facility], [address], [place], [place] [address] Lymphocyte % (test 34.8 % 24.0-44.0 code = 736-9) Monocyte % (test code 9.1 % 2.0-7.0 H = 5905-5) Eosinophil % (test 6.6 % 1.0-4.0 H code = 713-8) Basophil % (test code 0.7 % 0.0-1.0 = 706-2) IGRE % (test code = 0.0 % 0.0-0.4 IGRE % c ount 86484-9) includes Metamyelocytes, Myelocytes, and Promyelocytes. As part of Differential performed at [facility], [address] [facility], [address], [place] [address] Neutrophil Abs (test 3.37 K/uL 1.70-7.30 code = 751-8) Lymphocyte Abs (test 2.41 K/uL 1.00-4.80 code = 731-0) Monocyte Abs (test 0.63 K/uL 0.08-0.70 code = 742-7) Eosinophil Abs (test 0.46 K/uL 0.04-0.40 H code = 711-2) Basophil Abs (test 0.05 K/uL 0.00-0.10 code = 704-7) IG Abs (test code = 0.00 K/uL 0.00-0.04 03904-9) PAIGE (test code = PAIGE) Schedule same day tests/clinic appt Lab Interpretation Abnormal (test code = 31278-0) [facility] 13:32:19 Test Item Value Reference Range Interpretation Comments Neutrophil % (test 48.8 % 42.0-66.0 As part o f code = 770-8) Differential performed at [facility], [address] [place] [address], [address], [place] [address] Lymphocyte % (test 34.8 % 24.0-44.0 code = 736-9) Monocyte % (test code 9.1 % 2.0-7.0 H = 5905-5) Eosinophil % (test 6.6 % 1.0-4.0 H code = 713-8) Basophil % (test code 0.7 % 0.0-1.0 = 706-2) IGRE % (test code = 0.0 % 0.0-0.4 IGRE % c ount 79229-3) includes Metamyelocytes, Myelocytes, and Promyelocytes. As part of Differential performed at [facility], [address] [place] [address], [address], [place] [address] Neutrophil Abs (test 3.37 K/uL 1.70-7.30 code = 751-8) Lymphocyte Abs (test 2.41 K/uL 1.00-4.80 code = 731-0) Monocyte Abs (test 0.63 K/uL 0.08-0.70 code = 742-7) Eosinophil Abs (test 0.46 K/uL 0.04-0.40 H code = 711-2) Basophil Abs (test 0.05 K/uL 0.00-0.10 code = 704-7) IG Abs (test code = 0.00 K/uL 0.00-0.04 17552-1) PAIGE (test code = PAIGE) Schedule same day tests/clinic appt Lab Interpretation Abnormal (test code = 46305-2) [facility] 13:32:19 Test Item Value Reference Range Interpretation Comments Neutrophil % (test 48.8 % 42.0-66.0 As part o f code = 770-8) Differential performed at [facility], [address] [place] [address], [address], [place] [address] Lymphocyte % (test 34.8 % 24.0-44.0 code = 736-9) Monocyte % (test code 9.1 % 2.0-7.0 H = 5905-5) Eosinophil % (test 6.6 % 1.0-4.0 H code = 713-8) Basophil % (test code 0.7 % 0.0-1.0 = 706-2) IGRE % (test code = 0.0 % 0.0-0.4 IGRE % c ount 38602-2) includes Metamyelocytes, Myelocytes, and Promyelocytes. As part of Differential performed at [facility], [address] [facility], [address], [place] [address] Neutrophil Abs (test 3.37 K/uL 1.70-7.30 code = 751-8) Lymphocyte Abs (test 2.41 K/uL 1.00-4.80 code = 731-0) Monocyte Abs (test 0.63 K/uL 0.08-0.70 code = 742-7) Eosinophil Abs (test 0.46 K/uL 0.04-0.40 H code = 711-2) Basophil Abs (test 0.05 K/uL 0.00-0.10 code = 704-7) IG Abs (test code = 0.00 K/uL 0.00-0.04 19390-3) PAIGE (test code = PAIGE) Schedule same day tests/clinic appt Lab Interpretation Abnormal (test code = 63212-8) [facility] [place].[id number] 13:32:09 Test Item Value Reference Range Interpretation [...] individua l orderable testi ng performed at [facility] Lab [facility], [address], [address], [place], [place] [address] [Automated mess age] The system whic h generated this result transmit lakhwinder reference range : 14.0 - 18.0 gm/ dL. The reference r jose was not used to interpret this result as normal/abnormal . Hct (test code = 45.2 % 40.0-54.0 As part of CBC or 4544-3) as an individua l orderable testi ng performed at [facility], [address] [facility], [address], [place] [address] MCV (test code = [...] (test code = 62.4 fL 35.1-46.3 H 38729-3) RDW-CV (test code = 17.9 % 12.0-15.5 H 788-0) Platelet count (test 310 K/uL 140-440 As part of CBC or code = 777-3) as an individu al orderable testi ng performed at [facility], [address] [facility], [address], [place] [address] MPV (test code = 9.6 fL 4.0-10.4 65137-8) INRBC (test code = 0.0 % <=0.0 The INRBC 53759-8) (instrument NRB C) value reflects the enumerationof nucleated red b lood cells contained in a 200uL sampleo f whole blood analyzed by the instrument. Thi s value maydiffer from the NRBC v alue reported in a manual differential,wh ich is based on a 1 00 cell differenti al. As part of CBC testing perform ed at [facility] [id number] [facility], [address], [place] [address] PAIGE (test code = PAIGE) Schedule same day tests/clinic appt Lab Interpretation Abnormal (test code = 70930-3) [facility] [place].[id number] 13:32:09 Test Item Value Reference Range Interpretation [...] individua l orderable testi ng performed at [facility], [address] [facility], [address], [place], [place] [address] [Automated mess age] The system HRBoss h generated this result transmit lakhwinder reference range : 14.0 - 18.0 gm/ dL. The reference r jose was not used to interpret this result as normal/abnormal . Hct (test code = 45.2 % 40.0-54.0 As part of CBC or 4544-3) as an individua l orderable testi ng performed at [facility], [address] [facility], [address], [place] [address] MCV (test code = [...] (test code = 62.4 fL 35.1-46.3 H 74248-0) RDW-CV (test code = 17.9 % 12.0-15.5 H 788-0) Platelet count (test 310 K/uL 140-440 As part of CBC or code = 777-3) as an individu al orderable testi ng performed at [facility], [address] [facility], [address], [place], [place] [address] MPV (test code = 9.6 fL 4.0-10.4 86170-9) INRBC (test code = 0.0 % <=0.0 The INRBC 88157-1) (instrument NRB C) value reflects the enumerationof nucleated red b lood cells contained in a 200uL sampleo f whole blood analyzed by the instrument. Thi s value maydiffer from the NRBC v alue reported in a manual differential,wh ich is based on a 1 00 cell differenti al. As part of CBC testing perform ed at [facility] [address], [address], [place] [address] PAIGE (test code = PAIGE) Schedule same day tests/clinic appt Lab Interpretation Abnormal (test code = 84842-2) [facility] [place].[id number] 13:32:09 Test Item Value Reference Range Interpretation [...] individua l orderable testi ng performed at [facility], [address] [place] [address], [address], [place] [address] [Automated mess age] The system ic h generated this result transmit lakhwinder reference range : 14.0 - 18.0 gm/ dL. The reference r jose was not used to interpret this result as normal/abnormal . Hct (test code = 45.2 % 40.0-54.0 As part of CBC or 4544-3) as an individua l orderable testi ng performed at [facility], [address] [place] [address], [address], [place] [address] MCV (test code = 96 fL 82-98 787-2) MCH (test code = 30.8 pg 27.0-31.0 785-6) MCHC (test code = 32.1 See_Comment [Automate d 875-4) message] The sy stem which generated this result transmitted reference range : 31.0 - 36.0 gm/ dL. The reference r jose was not used to interpret this result as normal/abnormal . RDW-SD (test code = 62.4 fL 35.1-46.3 H 55178-4) RDW-CV (test code = 17.9 % 12.0-15.5 H 788-0) Platelet count (test 310 K/uL 140-440 As part of CBC or code = 777-3) as an individu al orderable testi ng performed at [facility], [address] [facility], [address], [place] [address] MPV (test code = 9.6 fL 4.0-10.4 31191-1) INRBC (test code = 0.0 % <=0.0 The INRBC 07616-1) (instrument NRB C) value reflects the enumerationof nucleated red b lood cells contained in a 200uL sampleo f whole blood analyzed by the instrument. Thi s value maydiffer from the NRBC v alue reported in a manual differential,wh ich is based on a 1 00 cell differenti al. As part of CBC testing perform ed at [facility] [id number] [facility], [address], [place], [place] [address] PAIGE (test code = PAIGE) Schedule same day tests/clinic appt Lab Interpretation Abnormal (test code = 19356-3) [facility] [place].[id number] 13:32:09 Test Item Value Reference Range Interpretation [...] individua l orderable testi ng performed at [facility], [address] [facility], [address], [place], [place] [address] [Automated mess age] The system whic h generated this result transmit lakhwinder reference range : 14.0 - 18.0 gm/ dL. The reference r jose was not used to interpret this result as normal/abnormal . Hct (test code = 45.2 % 40.0-54.0 As part of CBC or 4544-3) as an individua l orderable testi ng performed at [facility], [address] [facility], [address], [place] [address] MCV (test code = [...] (test code = 62.4 fL 35.1-46.3 H 96877-1) RDW-CV (test code = 17.9 % 12.0-15.5 H 788-0) Platelet count (test 310 K/uL 140-440 As part of CBC or code = 777-3) as an individu al orderable testi ng performed at [facility], [address] [facility], [address], [place], [place] [address] MPV (test code = 9.6 fL 4.0-10.4 41820-7) INRBC (test code = 0.0 % <=0.0 The INRBC 33977-9) (instrument NRB C) value reflects the enumerationof nucleated red b lood cells contained in a 200uL sampleo f whole blood analyzed by the instrument. Thi s value maydiffer from the NRBC v alue reported in a manual differential,wh ich is based on a 1 00 cell differenti al. As part of CBC testing perform ed at [facility] [id number] [facility], [address], [place], [place] [address] PAIGE (test code = PAIGE) Schedule same day tests/clinic appt Lab Interpretation Abnormal (test code = 00307-4) [facility] [place].[id number] 13:32:09 Test Item Value Reference Range Interpretation [...] individua l orderable testi ng performed at [facility], [address] [place] [address], [address], [place] [address] [Automated mess age] The system HRBoss h generated this result transmit lakhwinder reference range : 14.0 - 18.0 gm/ dL. The reference r jose was not used to interpret this result as normal/abnormal . Hct (test code = 45.2 % 40.0-54.0 As part of CBC or 4544-3) as an individua l orderable testi ng performed at [facility], [facility], [address], [place] [address] MCV (test code = [...] (test code = 62.4 fL 35.1-46.3 H 96514-2) RDW-CV (test code = 17.9 % 12.0-15.5 H 788-0) Platelet count (test 310 K/uL 140-440 As part of CBC or code = 777-3) as an individu al orderable testi ng performed at [facility], [address] [facility], [address], [place] [address] MPV (test code = 9.6 fL 4.0-10.4 95429-4) INRBC (test code = 0.0 % <=0.0 The INRBC 34190-5) (instrument NRB C) value reflects the enumerationof nucleated red b lood cells contained in a 200uL sampleo f whole blood analyzed by the instrument. Thi s value maydiffer from the NRBC v alue reported in a manual differential,wh ich is based on a 1 00 cell differenti al. As part of CBC testing perform ed at [facility] Lab [facility] [id number] [facility], [address], [place] [address] PAIGE (test code = PAIGE) Schedule same day tests/clinic appt Lab Interpretation Abnormal (test code = 14283-8) [facility] 17:30:06 Test Item Value Reference Range Interpretation Comments T3 Total (test code = 3053-6) 153 ng/dL 80-200 [facility] 17:30:06 Test Item Value Reference Range Interpretation Comments T3 Total (test code = 3053-6) 153 ng/dL 80-200 [facility] 17:30:06 Test Item Value Reference Range Interpretation Comments T3 Total (test code = 3053-6) 153 ng/dL 80-200 [facility] 17:30:06 Test Item Value Reference Range Interpretation Comments T3 Total (test code = 3053-6) 153 ng/dL 80-200 [facility] 17:30:06 Test Item Value Reference Range Interpretation Comments T3 Total (test code = 3053-6) 153 ng/dL 80-200 [facility] 17:30:06 Test Item Value Reference Range Interpretation Comments T3 Total (test code = 3053-6) 153 ng/dL 80-200 [facility] 17:30:06 Test Item Value Reference Range Interpretation Comments T3 Total (test code = 3053-6) 153 ng/dL 80-200 [facility] [id number] 16:45:54 Test Item Value Reference Range Interpretation Comments T4 Free (test code 1.01 ng/dL 0.93-1.70 Testing P erformed at [facility] = 3024-7) [facility], [address], [address], [address] [id number] 16:45:54 Test Item Value Reference Range Interpretation Comments T4 Free (test code 1.01 ng/dL 0.93-1.70 Testing P erformed at [facility] = 3024-7) Lab [facility], [address], [address], [address] [id number] 16:45:54 Test Item Value Reference Range Interpretation Comments T4 Free (test code 1.01 ng/dL 0.93-1.70 Testing P erformed at [facility] = 3024-7) Lab [facility], [address], [address], [address] [id number] 16:45:54 Test Item Value Reference Range Interpretation Comments T4 Free (test code 1.01 ng/dL 0.93-1.70 Testing P erformed at [facility] = 3024-7) Lab [facility], [address], [address], [address] 16:45:54 Test Item Value Reference Range Interpretation Comments T4 Free (test code 1.01 ng/dL 0.93-1.70 Testing P erformed at [facility] = 3024-7) [facility], [address], [address], [address] [id number] 16:45:54 Test Item Value Reference Range Interpretation Comments T4 Free (test code 1.01 ng/dL 0.93-1.70 Testing P erformed at [facility] = 3024-7) [facility], [address], [address], [address] [id number] 16:45:54 Test Item Value Reference Range Interpretation Comments T4 Free (test code 1.01 ng/dL 0.93-1.70 Testing P erformed at [facility] = 3024-7) Lab [facility], [address], [address], [place] [address] [facility] 16:45:52 Test Item Value Reference Range Interpretation Comments TSH (test code = 0.65 See_Comment Note: Gerson Ybarra ethodology and 05888-0) Reference Range change effective 2017 at 1400 Testing Perform ed at [facility], [address], [address], [place] [address] [Automated mess age] The system which ge nerated this result transmit lakhwinder reference range : 0.27 - 4.20 mcunit/mL. The reference range was not used to interpr et this result as paras l/abnormal. [facility] 16:45:52 Test Item Value Reference Range Interpretation Comments TSH (test code = 0.65 See_Comment Note: [place] ethodology and 75815-3) Reference Range change effective 2017 at 1400 Testing Perform ed at [facility] Lab [facility], [address], [address], [place] [address] [Automated mess age] The system which ge nerated this result transmit lakhwinder reference range : 0.27 - 4.20 mcunit/mL. The reference range was not used to interpr et this result as paras l/abnormal. [facility] 16:45:52 Test Item Value Reference Range Interpretation Comments TSH (test code = 0.65 See_Comment Note: [place] ethodology and 03239-9) Reference Range change effective 2017 at 1400 Testing Perform ed at [facility], [address], [address], [place] [address] [Automated mess age] The system which ge nerated this result transmit lakhwinder reference range : 0.27 - 4.20 mcunit/mL. The reference range was not used to interpr et this result as paras l/abnormal. [facility] 16:45:52 Test Item Value Reference Range Interpretation Comments TSH (test code = 0.65 See_Comment Note: New M ethodology and 60454-3) Reference Range change effective 2017 at 1400 Testing Perform ed at [facility], [address], [address], [place] [address] [Automated mess age] The system which ge nerated this result transmit lakhwinder reference range : 0.27 - 4.20 mcunit/mL. The reference range was not used to interpr et this result as paras l/abnormal. [facility] 16:45:52 Test Item Value Reference Range Interpretation Comments TSH (test code = 0.65 See_Comment Note: New M ethodology and 64729-0) Reference Range change effective 2017 at 1400 Testing Perform ed at [facility], [address], [address], [place] [address] [Automated mess age] The system which ge nerated this result transmit lakhwinder reference range : 0.27 - 4.20 mcunit/mL. The reference range was not used to interpr et this result as paras l/abnormal. [facility] 16:45:52 Test Item Value Reference Range Interpretation Comments TSH (test code = 0.65 See_Comment Note: New M ethodology and 69851-3) Reference Range change effective 2017 at 1400 Testing Perform ed at [facility], [address], [address], [place] [address] [Automated mess age] The system which ge nerated this result transmit lakhwinder reference range : 0.27 - 4.20 mcunit/mL. The reference range was not used to interpr et this result as paras l/abnormal. [facility] 16:45:52 Test Item Value Reference Range Interpretation Comments TSH (test code = 0.65 See_Comment Note: New M ethodology and 09478-8) Reference Range change effective 2017 at 1400 Testing Perform ed at [facility], [address], [address], [place] [address] [Automated mess age] The system which ge nerated this result transmit lakhwinder reference range : 0.27 - 4.20 mcunit/mL. The reference range was not used to interpr et this result as paras l/abnormal. [facility] CenterFractionated [id number] 16:32:38 Test Item Value Reference Range Interpretation [...] concentrations above 28 g/L.Testing Per formed at [facility] Lab [facility], [address] [facility], [address], [place] [address] [Automate d message] The system [employer] generated this result transmitted ref erence range: <=1.2. T he reference range was not used to interpr et this result as normal/abnormal . Bili Direct (test See_Comment Indocyanin e Green (ICG) code = 1967-12) may cause fal sely elevated biliru bin results. Total and direct bilirubin must not be measured from s amples containing indo cyanine green. Testing Performed at [facility] Lab [facility], [address] [facility], [address], [place] [address] [Autom ated message] The [employer] stem which generated this result transmitted ref erence range: <=0.3. T he reference range was not used to interpr et this result as normal/abnormal . Bili Indirect (test See Note 0.0-0.9 Unable t o calculate code = 1970-06) Indirect Bili ruffin result due to some par ameters are outside rep ortable rangeTesting Pe rformed at [facility] Lab Ambulat [facility], [address], [address], [facility] [address] [facility] CenterFractionated [id number] 16:32:38 Test Item Value Reference Range Interpretation [...] concentrations above 28 g/L.Testing Per formed at [facility] Lab Ambulat ory Care Bldg, [address], [address], [facility] [place] [address] Bili Direct (test <=0.3 Indocyanin e Green (ICG) code = 1967-12) may cause fal sely elevated biliru bin results. Total and direct bilirubin must not be measured from s amples containing indo cyanine green. Testing Performed at [facility] Ambu latory Care Bld[facility], [address], [address], [place] [address] Bili Indirect (test See Note 0.0-0.9 Unable t o calculate code = 1970-06) Indirect Bili ruffin result due to some par ameters are outside rep ortable rangeTesting Pe rformed at [facility] Lab Ambulat ory Care dg, [address], [address], [facility] [place] [address] [facility] CenterGlomerular Filtration Rate 2022-06-07 16:32:36 Test Item Value Reference Range Interpretation Comments eGFR (test code = 103 See_Comment The [place]cr [place] [address]) the 2020 CKD-EP I creatinine equation using [...] a for CKD. Testing Perform ed at [facility] Lab Identifier Horse [facility], [address] [place] [address], [address], [place], [place] [address] [Automated message] The sy stem which generated this result transmitted ref erence range: >=60 mL/min/1.7 3 sq. m. The reference range was not used to interpret th is result as normal/abnormal . [facility] CenterGlomerular Filtration Rate 2022-06-07 16:32:36 Test Item Value Reference Range Interpretation Comments eGFR (test code = 103 See_Comment [place]cr [place] [address]) the 2020 CKD-EP I creatinine equation using [...] a for CKD. Testing Perform ed at [facility] Lab Identifier Horse [facility], [address] [place] [address], [address], [place] [address] [Automated message] The sy stem which generated this result transmitted ref erence range: >=60 mL/min/1.7 3 sq. m. The reference range was not used to interpret th is result as normal/abnormal . [facility] CenterUric [id number] 16:32:35 Test Item Value Reference Range Interpretation Comments Uric Acid (test 5.3 mg/dL 3.4-7.0 Testing Perf ormed at [facility] code = 3084-1) Lab Ambulator y Care Bldg, [address], [address], [place] [address] [facility] CenterU[facility] [id number] 16:32:35 Test Item Value Reference Range Interpretation Comments Uric Acid (test 5.3 mg/dL 3.4-7.0 Testing Perf ormed at [facility] code = 3084-1) [facility], [address], [address], [place] [address] [facility] CenterU[facility] [id number] 16:32:35 Test Item Value Reference Range Interpretation Comments Uric Acid (test 5.3 mg/dL 3.4-7.0 Testing Perf ormed at [facility] code = 3084-1) [facility], [address], [address], [place] [address] [facility] CenterU[facility] [id number] 16:32:35 Test Item Value Reference Range Interpretation Comments Uric Acid (test 5.3 mg/dL 3.4-7.0 Testing Perf ormed at [facility] code = 3084-1) [facility], [address], [address], [place] [address] [facility] CenterU[facility] [id number] 16:32:35 Test Item Value Reference Range Interpretation Comments Uric Acid (test 5.3 mg/dL 3.4-7.0 Testing Perf ormed at [facility] code = 3084-1) Lab [facility], [address], [address], [place] [address] [facility] CenterU[facility] [id number] 16:32:35 Test Item Value Reference Range Interpretation Comments Uric Acid (test 5.3 mg/dL 3.4-7.0 Testing Perf ormed at [facility] code = 3084-1) Lab Amb[facility]ld[facility], [address], [address], [place] [address] [facility] CenterU[facility] [id number] 16:32:35 Test Item Value Reference Range Interpretation Comments Uric Acid (test 5.3 mg/dL 3.4-7.0 Testing Perf ormed at [facility] code = 3084-1) Lab Ambulator y Care Bl, [address], [address], [place] [address] [facility] CenterTotal [id number] 16:32:34 Test Item Value Reference Range Interpretation Comments Total Protein (test 7.0 g/dL 6.4-8.3 Testing Performed at [facility] code = 2885-2) Lab Amb[facility] Care Bld[facility], [address], [address], [place] [address] [facility] CenterTotal [id number] 16:32:34 Test Item Value Reference Range Interpretation Comments Total Protein (test 7.0 g/dL 6.4-8.3 Testing Performed at [facility] code = 2885-2) Lab Amb[facility] Bld[facility], [address], [address], [place] [address] [facility] CenterMagnesium [id number] 16:32:33 Test Item Value Reference Range Interpretation Comments Magnesium (test code = 1.9 mg/dL 1.6-2.6 [place] [address]-8) [facility] Lab Ambulat ory Care Bldg, [address], [address], [place] [address] [facility] CenterMagnesium [id number] 16:32:33 Test Item Value Reference Range Interpretation Comments Magnesium (test code = 1.9 mg/dL 1.6-2.6 [place] [address]-4) [facility] Lab Ambulat ory Care Bldg, [address], [address], [place] [address] [facility] CenterMagnesium [id number] 16:32:33 Test Item Value Reference Range Interpretation Comments Magnesium (test code = 1.9 mg/dL 1.6-2.6 [place] [address]-3) [facility] Lab Ambulat ory Care Bldg, [address], [address], [place] [address] [facility] CenterMagnesium [id number] 16:32:33 Test Item Value Reference Range Interpretation Comments Magnesium (test code = 1.9 mg/dL 1.6-2.6 [place] [address]-2) [facility] Lab Ambulat ory Care Bldg, [address], [address], [place] [address] [facility] CenterMagnesium [id number] 16:32:33 Test Item Value Reference Range Interpretation Comments Magnesium (test code = 1.9 mg/dL 1.6-2.6 [place] [address]-2) [facility] Lab Ambulat or Care Bldg, [address], [address], [place] [address] [facility] CenterMagnesium [id number] 16:32:33 Test Item Value Reference Range Interpretation Comments Magnesium (test code = 1.9 mg/dL 1.6-2.6 [place] [address]-8) [facility], [address], [address], [place] [address] [facility] CenterMagnesium [id number] 16:32:33 Test Item Value Reference Range Interpretation Comments Magnesium (test code = 1.9 mg/dL 1.6-2.6 [place] [address]-2) [facility], [address], [address], [place] [address] [facility] CenterCalcium [id number] 16:32:32 Test Item Value Reference Range Interpretation Comments Calcium Lvl (test 9.3 mg/dL 8.4-10.2 Testing Pe rformed at code = 44251-2) [facility], [address], [address], [place] [address] [facility] CenterCalcium [id number] 16:32:32 Test Item Value Reference Range Interpretation Comments Calcium Lvl (test 9.3 mg/dL 8.4-10.2 Testing Pe rformed at code = 01950-2) [facility], [address], [address], [place] [address] [facility] CenterAlkaline [id number] 16:32:31 Test Item Value Reference Range Interpretation Comments Alk Phos (test code = 91 U/L 40-129 Testin g Performed at [facility] 6768-6) Lab Identifier Horse [facility], [address], [address], [place] [address] [facility] CenterAlkaline [id number] 16:32:31 Test Item Value Reference Range Interpretation Comments Alk Phos (test code = 91 U/L 40-129 Testin g Performed at [facility] 6768-6) Lab Identifier Horse [facility], [address], [address], [place] [address] [facility] CenterAlbumin [id number] 16:32:30 Test Item Value Reference Range Interpretation Comments Albumin Lvl (test code 3.8 See_Comment Testi ng Performed at B = 1751-7) Lab Identifier Horse [facility], [address], [address], [place] [address] [Automated mess age] The system which ge nerated this result tra nsmitted reference range : 3.5 - 5.2 gm/dL. The refe rence range was not used to interpret this result as normal/abnormal . [facility] CenterAlbumin [id number] 16:32:30 Test Item Value Reference Range Interpretation Comments Albumin Lvl (test code 3.8 See_Comment Testi ng Performed at [facility] = 1751-7) Lab Identifier Horse [facility], [address], [address], [place] [address] [Automated mess age] The system which ge nerated this result tra nsmitted reference range : 3.5 - 5.2 gm/dL. The refe rence range was not used to interpret this result as normal/abnormal . [facility] CenterAspartate Aminotransferase 2022-06-07 16:32:29 Test Item Value Reference Range Interpretation Comments AST (test code = 14 U/L See_Comment Testing Per formed at [facility] 1920-8) Lab Identifier Horse [facility], [address], [address], [place] [address] [Automated mess age] The system which ge nerated this result transmit lakhwinder reference range : <=40. The reference range was not used to interpr et this result as paras l/abnormal. [facility] CenterAspartate Aminotransferase 2022-06-07 16:32:29 Test Item Value Reference Range Interpretation Comments AST (test code = 14 U/L <=40 Testing Per formed at [facility] 1920-8) Lab Identifier Horse [facility], [address], [address], [place] [address] [facility] CenterALT2022-12-09 16:32:28 Test Item Value Reference Range Interpretation Comments ALT (test code = 6 U/L See_Comment Testing Per formed at [facility] 1742-6) Lab Identifier Horse [facility], [address], [address], [place] [address] [Automated mess age] The system which ge nerated this result transmit lakhwinder reference range : <=41. The reference range was not used to interpr et this result as paras l/abnormal. [facility] CenterALT2022-12-09 16:32:28 Test Item Value Reference Range Interpretation Comments ALT (test code = 6 U/L <=41 Testing Per formed at [facility] 1742-6) Lab Identifier Horse [facility], [address], [address], [place] [address] [facility] CenterElectrolyte [id number] 16:32:27 Test Item Value Reference Range Interpretation Comments Sodium Lvl (test code = 138 See_Comment Test ing Performed at [facility] 2951-2) Lab Identifier Horse [facility], [address], [address], [place] [address] [Automated mess age] The system which ge nerated this result tra nsmitted reference range : 136 - 145 mEq/L. The reference range was not u sed to interpret this result as normal/abnormal . Potassium Lvl (test 3.8 See_Comment Testing Performed at [facility] code = 2823-3) Lab Ambulator y Care [facility], [address], [address], [place] [address] [Automated mess age] The system which ge nerated this result tra nsmitted reference range : 3.5 - 5.1 mEq/L. The reference range was not u sed to interpret this result as normal/abnormal . Chloride (test code = 103 See_Comment Testin g Performed at [facility] 2075-0) Lab Identifier Horse [facility], [address], [address], [place] [address] [Automated mess age] The system which ge nerated this result tra nsmitted reference range : 98 - 107 mEq/L. The refe rence range was not u sed to interpret this result as normal/abnormal . CO2 (test code = 25 See_Comment Testing Per formed at [facility] 2028-02) Lab Identifier [facility], [address], [address], [place] [address] [Automated mess age] The system which ge nerated this result tra nsmitted reference range : 22 - 29 mEq/L. The refe rence range was not u sed to interpret this result as normal/abnormal . Anion Gap (test code = 10 See_Comment Testi ng Performed at [facility] 611[address]-8) Lab Identifier Horse Bldg, [address], [address], [place] [address] [Automated mess age] The system which ge nerated this result tra nsmitted reference range : 4 - 14 mEq/L. The refe rence range was not u sed to interpret this result as normal/abnormal . [facility] [place] [id number] 16:32:27 Test Item Value Reference Range Interpretation Comments Sodium Lvl (test code = 138 See_Comment Test ing Performed at [facility] 2951-2) Lab Identifier Horse [facility], [address], [address], [place] [address] [Automated mess age] The system which ge nerated this result tra nsmitted reference range : 136 - 145 mEq/L. The reference range was not u sed to interpret this result as normal/abnormal . Potassium Lvl (test 3.8 See_Comment Testing Performed at [facility] code = 2823-3) Lab Ambulator y Care [facility], [address], [address], [place] [address] [Automated mess age] The system which ge nerated this result tra nsmitted reference range : 3.5 - 5.1 mEq/L. The reference range was not u sed to interpret this result as normal/abnormal . Chloride (test code = 103 See_Comment Testin g Performed at [facility] ) Lab Identifier Horse [facility], [address], [address], [place] [address] [Automated mess age] The system which ge nerated this result tra nsmitted reference range : 98 - 107 mEq/L. The refe rence range was not u sed to interpret this result as normal/abnormal . CO2 (test code = 25 See_Comment Testing Per formed at [facility] 2028-02) Lab Identifier Horse Bldg, [address], [address], [place] [address] [Automated mess age] The system which ge nerated this result tra nsmitted reference range : 22 - 29 mEq/L. The refe rence range was not u sed to interpret this result as normal/abnormal . Anion Gap (test code = 10 See_Comment Testi ng Performed at [facility] 576[address]-4) Lab [facility], [address], [address], [place] [address] [Automated mess age] The system which ge nerated this result tra nsmitted reference range : 4 - 14 mEq/L. The refe rence range was not u sed to interpret this result as normal/abnormal . [facility].Serum [id number] 16:32:26 Test Item Value Reference Range Interpretation Comments Creatinine (test code = 0.66 mg/dL 0.67-1.17 L Test ing Performed 2160-0) at [facility] Lab Identifier Horse [facility], [address], [place], [place] [address] Lab Interpretation (test Abnormal code = 60137-9) [facility].Serum [id number] 16:32:26 Test Item Value Reference Range Interpretation Comments Creatinine (test code = 0.66 mg/dL 0.67-1.17 L Test ing Performed 2160-0) at [facility] Lab Identifier Horse [facility], [address], [address], [place] [address] Lab Interpretation (test Abnormal code = 74092-6) [facility] CenterBUN2022-12-09 16:32:25 Test Item Value Reference Range Interpretation Comments BUN (test code = 3094-0) 5 mg/dL 6-23 L Betty ting Performed at [facility] Lab Ambulat ory Care [facility], [address], [address], [place] [address] Lab Interpretation (test Abnormal code = 18259-0) [facility] CenterBUN2022-12-09 16:32:25 Test Item Value Reference Range Interpretation Comments BUN (test code = 3094-0) 5 mg/dL 6-23 L Betty ting Performed at [facility] Lab Ambulat ory Care [facility], [address], [address], [place] [address] Lab Interpretation (test Abnormal code = 80426-0) [facility] CenterGlucose [id number] 16:32:24 Test Item Value Reference Range Interpretation Comments Glucose Level (test 96 mg/dL 70-99 Effectiv e 01/24/16, the code = 2345-7) glucose refer ence intervals have been updated based o n [employer] octaviano delines (Standards of [...] risk for diabetes Testin g Performed at [facility] Care [facility], [address], [address], [place] [address] [facility] CenterGlucose [id number] 16:32:24 Test Item Value Reference Range Interpretation Comments Glucose Level (test 96 mg/dL 70-99 Effectiv e 01/24/16, the code = 2345-7) glucose refer ence intervals have been updated based o n [employer] octaviano delines (Standards of [...] diabetes Testin g Performed at [facility] Lab Identifier Horse [facility], [address], [place] [address] [facility] CenterDifferential2022-12-09 16:09:54 Test Item Value Reference Range Interpretation Comments Neutrophil % (test code 53.5 % 42.0-66.0 As p art of = 770-8) Differential performed at [facility] Lab Identifier Horse [facility], [address], [place] [address] Lymphocyte % (test code 38.2 % 24.0-44.0 = 736-9) Monocyte % (test code = 7.0 % 2.0-7.0 5905-5) Eosinophil % (test code 0.7 % 1.0-4.0 L = 713-8) Basophil % (test code = 0.3 % 0.0-1.0 706-2) IGRE % (test code = 0.3 % 0.0-0.4 IGRE % c ount includes 98583-7) Metamyelocytes, Myelocytes, and Promyelocytes. As part of Differe ntial performed at [facility] Identifier Horse [facility], [address], [place] [address] Neutrophil Abs (test 3.56 K/uL 1.70-7.30 code = 751-8) Lymphocyte Abs (test 2.55 K/uL 1.00-4.80 code = 731-0) Monocyte Abs (test code 0.47 K/uL 0.08-0.70 = 742-7) Eosinophil Abs (test 0.05 K/uL 0.04-0.40 code = 711-2) Basophil Abs (test code 0.02 K/uL 0.00-0.10 = 704-7) IG Abs (test code = 0.02 K/uL 0.00-0.04 86839-4) Lab Interpretation Abnormal (test code = 55639-5) [facility] CenterDifferential2022-12-09 16:09:54 Test Item Value Reference Range Interpretation Comments Neutrophil % (test code 53.5 % 42.0-66.0 As p art of = 770-8) Differential performed at [facility] Lab Identifier Horse [facility], [address], [place] [address] Lymphocyte % (test code 38.2 % 24.0-44.0 = 736-9) Monocyte % (test code = 7.0 % 2.0-7.0 5905-5) Eosinophil % (test code 0.7 % 1.0-4.0 L = 713-8) Basophil % (test code = 0.3 % 0.0-1.0 706-2) IGRE % (test code = 0.3 % 0.0-0.4 IGRE % c ount includes 49563-1) Metamyelocytes, Myelocytes, and Promyelocytes. As part of Differe ntial performed at [facility] Lab Identifier Horse [facility], [address], [address], [place] [address] Neutrophil Abs (test 3.56 K/uL 1.70-7.30 code = 751-8) Lymphocyte Abs (test 2.55 K/uL 1.00-4.80 code = 731-0) Monocyte Abs (test code 0.47 K/uL 0.08-0.70 = 742-7) Eosinophil Abs (test 0.05 K/uL 0.04-0.40 code = 711-2) Basophil Abs (test code 0.02 K/uL 0.00-0.10 = 704-7) IG Abs (test code = 0.02 K/uL 0.00-0.04 85837-1) Lab Interpretation Abnormal (test code = 60097-9) [facility] [place].[id number] 16:09:39 Test Item Value Reference Range Interpretation Comments WBC (test code = 6.7 K/uL 4.0-11.0 6690-2) RBC (test code = 789-8) 3.87 See_Comment L [Au tomated message] The system [employer] generated this result transmitted ref erence range: 4.50 - 6 .00 M/uL. The refer ence range was not u sed to interpret this result as normal/abnor mal. Hgb (test code = 718-7) 11.3 See_Comment L As p art of CBC or as an individual orderable testi ng performed at [facility], [address], [address], [place] [address] [Automate d message] The sy stem which generated this result transmit lakhwinder reference range : 14.0 - 18.0 gm/dL. T he reference range was not used to int erpret this result as normal/abnormal . Hct (test code = 35.1 % 40.0-54.0 L As part of CBC or as 4544-3) an individual orderable testi ng performed at [facility], [address], [address], [place] [address] MCV (test code = 787-2) 91 fL 82-98 MCH (test code = 785-6) 29.2 pg 27.0-31.0 MCHC (test code = 32.2 See_Comment [Automate d message] 786-4) The system [employer] generated this result transmitted ref erence range: 31.0 - 3 6.0 gm/dL. The refe rence range was not u sed to interpret this result as normal/abnor mal. RDW-SD (test code = 52.4 fL 35.1-46.3 H 35838-9) RDW-CV (test code = 15.8 % 12.0-15.5 H 788-0) Platelet count (test 304 K/uL 140-440 As part of CBC or as code = 777-3) an individual orderable testi ng performed at [facility], [address], [address], [place] [address] MPV (test code = 9.7 fL 4.0-10.4 58533-0) INRBC (test code = 0.0 % See_Comment The INRBC (instrument 32224-8) NRBC) value ref lects the enumeration of nucleated red b lood cells contained in a 200uL sampleof whole blood analyzed by the instrument. Thi s value maydiffer from the NRBC value repo rted in a manual differential,wh ich is based on a 100 cell differential. A s part of CBC testing performed at [facility], [place] [address] [Automated mess age] The system [employer] generated this result transmitted ref erence range: <=0.0. T he reference range was not used to int erpret this result as normal/abnormal . Lab Interpretation Abnormal (test code = 89841-4) [facility] [place].[id number] 16:09:39 Test Item Value Reference Range Interpretation Comments WBC (test code = 6.7 K/uL 4.0-11.0 6690-2) RBC (test code = 789-8) 3.87 See_Comment L [Au tomated message] The system [employer] generated this result transmitted ref erence range: 4.50 - 6 .00 M/uL. The refer ence range was not u sed to interpret this result as normal/abnor mal. Hgb (test code = 718-7) 11.3 See_Comment L As p art of CBC or as an individual orderable testi ng performed at [facility] Identifier Horse [facility], [address], [address], [place] [address] [Automate d message] The sy stem which generated this result transmit lakhwinder reference range : 14.0 - 18.0 gm/dL. T he reference range was not used to int erpret this result as normal/abnormal . Hct (test code = 35.1 % 40.0-54.0 L As part of CBC or as 4544-3) an individual orderable testi ng performed at [facility] Identifier Horse [facility], [address], [place] [address] MCV (test code = 787-2) 91 fL 82-98 MCH (test code = 785-6) 29.2 pg 27.0-31.0 MCHC (test code = 32.2 See_Comment [Automate d message] 786-4) The system [employer] generated this result transmitted ref erence range: 31.0 - 3 6.0 gm/dL. The refe rence range was not u sed to interpret this result as normal/abnor mal. RDW-SD (test code = 52.4 fL 35.1-46.3 H 47001-7) RDW-CV (test code = 15.8 % 12.0-15.5 H 788-0) Platelet count (test 304 K/uL 140-440 As part of CBC or as code = 777-3) an individual orderable testi ng performed at [facility], [address], [address], [facility] [address] MPV (test code = 9.7 fL 4.0-10.4 24275-6) INRBC (test code = 0.0 % <=0.0 The INRBC (instrument 40726-6) NRBC) value ref lects the enumeration of nucleated red b lood cells contained in a 200uL sampleof whole blood analyzed by the instrument. Thi s value maydiffer from the NRBC value repo rted in a manual differential,wh ich is based on a 100 cell differential. A s part of CBC testing performed at [facility] [id number], [place] [address] Lab Interpretation Abnormal (test code = 04457-9) [facility] Buvtjyc6972-62-46 23:29:29 Test Item Value Reference Range Interpretation Comments Final Report (test No Fungi isolated. code = 8488) Path Review - Culture yield may be Fungus (test code = affected by sample 8479) quality, prior treatment, and transportation conditions.The results have been reviewed and electronically signed by Pathologist:SRUTHI ZABALA MD #[id number] [facility] Wxbafsl7322-28-55 23:29:29 Test Item Value Reference Range Interpretation Comments Final Report (test No Fungi isolated. code = 8488) Path Review - Culture yield may be Fungus (test code = affected by sample 8479) quality, prior treatment, and transportation conditions.The results have been reviewed and electronically signed by Pathologist:SRUTHI ZABALA MD #[id number] [facility] Blood Ithazpp3328-98-14 23:29:29 Test Item Value Reference Range Interpretation Comments Final Report (test No Fungi isolated. code = 8488) Path Review - Culture yield may be Fungus (test code = affected by sample 8479) quality, prior treatment, and transportation conditions.The results have been reviewed and electronically signed by Pathologist:SRUTHI ZABALA MD #[id number] [facility] Gyperlb8155-59-93 23:29:29 Test Item Value Reference Range Interpretation Comments Final Report (test No Fungi isolated. code = 8488) Path Review - Culture yield may be Fungus (test code = affected by sample 8479) quality, prior treatment, and transportation conditions.The results have been reviewed and electronically signed by Pathologist:SRUTHI ZABALA MD #[id number] [facility] Blood Kbigtwg6241-35-96 23:29:29 Test Item Value Reference Range Interpretation Comments Final Report (test No Fungi isolated. code = 8488) Path Review - Culture yield may be Fungus (test code = affected by sample 8479) quality, prior treatment, and transportation conditions.The results have been reviewed and electronically signed by Pathologist:SRUTHI ZABALA MD #[id number] [facility] Blood Upxetkf1228-40-26 23:29:29 Test Item Value Reference Range Interpretation Comments Final Report (test No Fungi isolated. code = 8488) Path Review - Culture yield may be Fungus (test code = affected by sample 8479) quality, prior treatment, and transportation conditions.The results have been reviewed and electronically signed by Pathologist:SRUTHI ZABALA MD #[id number] [facility] Blood Aukbicm9507-33-21 23:29:29 Test Item Value Reference Range Interpretation Comments Final Report (test No Fungi isolated. code = 8488) Path Review - Culture yield may be Fungus (test code = affected by sample 8479) quality, prior treatment, and transportation conditions.The results have been reviewed and electronically signed by Pathologist:SRUTHI ZABALA MD #[id number] [facility] Ycfesbl6366-00-28 01:20:36 Test Item Value Reference Range Interpretation Comments Final Report (test No growth code = 8488) Path Review - Culture yield may be Bottle/Isolator affected by sample (test code = 8499) quality, prior treatment, and transportation conditions....The results have been reviewed and electronically signed by Pathologist:Fredy Mercado MD, PhD #[id number] [facility]2022-04-30 01:20:36 Test Item Value Reference Range Interpretation Comments Final Report (test No growth code = 8488) Path Review - Culture yield may be Bottle/Isolator affected by sample (test code = 8499) quality, prior treatment, and transportation conditions....The results have been reviewed and electronically signed by Pathologist:Fredy Mercado MD, PhD #[id number] [facility]2022-04-30 01:20:36 Test Item Value Reference Range Interpretation Comments Final Report (test No growth code = 8488) Path Review - Culture yield may be Bottle/Isolator affected by sample (test code = 8499) quality, prior treatment, and transportation conditions....The results have been reviewed and electronically signed by Pathologist:Fredy Mercado MD, PhD #[id number] [facility]2022-04-30 01:20:36 Test Item Value Reference Range Interpretation Comments Final Report (test No growth code = 8488) Path Review - Culture yield may be Bottle/Isolator affected by sample (test code = 8499) quality, prior treatment, and transportation conditions....The results have been reviewed and electronically signed by Pathologist:Fredy Mercado MD, PhD #[id number] [facility]2022-04-30 01:20:36 Test Item Value Reference Range Interpretation Comments Final Report (test No growth code = 8488) Path Review - Culture yield may be Bottle/Isolator affected by sample (test code = 8499) quality, prior treatment, and transportation conditions....The results have been reviewed and electronically signed by Pathologist:Fredy Mercado MD, PhD #[id number] [facility]2022-04-30 01:20:36 Test Item Value Reference Range Interpretation Comments Final Report (test No growth code = 8488) Path Review - Culture yield may be Bottle/Isolator affected by sample (test code = 8499) quality, prior treatment, and transportation conditions....The results have been reviewed and electronically signed by Pathologist:Fredy Mercado MD, PhD #[id number] [facility]2022-04-30 01:20:36 Test Item Value Reference Range Interpretation Comments Final Report (test No growth code = 8488) Path Review - Culture yield may be Bottle/Isolator affected by sample (test code = 8499) quality, prior treatment, and transportation conditions....The results have been reviewed and electronically signed by Pathologist:Fredy Mercado MD, PhD #[id number] [facility] YonxqfFidelozaiwff6213-51-01 17:07:36 Test Item Value Reference Range Interpretation Comments Total Cells (test code 100 = 63016-3) Neutrophil % (test code 63.0 % 42.0-66.0 The Neutrophil count = 26927-4) includes Bands. Lymphocyte % (test code 20.0 % 24.0-44.0 L = 737-7) Monocyte % (test code = 9.0 % 2.0-7.0 H 744-3) Eosinophil % (test code 2.0 % 1.0-4.0 = 714-6) Metamyelocyte % (test 6.0 % See_Comment H The Me tamyelocyte code = 740-1) count includes Myelocytes. [Automated mess age] The system [employer] generated this result transmitted ref erence range: <=0.0. T icomply reference range was not used to int erpret this result as normal/abnormal . NRBC (test code = 1.0 See_Comment H [Automate d message] 30787-5) The system [employer] generated this result transmitted ref erence range: <=0.0. T icomply reference range was not used to int [...] PLT Morph (test code = Normal Normal 93617-3) Anisocytosis (test code Present Not Present A = 702-1) Poik (test code = Present Not Present A 779-9) Polychromasia (test Present Not Present A code = 89968-7) Ovalocyte (test code = Present Not Present A 774-0) Tear Drop (test code = Present Not Present A 7791-7) Lab Interpretation Abnormal (test code = 31035-1) [facility] XxktcyMdhyjdptlsse9413-88-52 17:07:36 Test Item Value Reference Range Interpretation Comments Total Cells (test code 100 = 03565-1) Neutrophil % (test code 63.0 % 42.0-66.0 The Neutrophil count = 99258-6) includes Bands. Lymphocyte % (test code 20.0 % 24.0-44.0 L = 737-7) Monocyte % (test code = 9.0 % 2.0-7.0 H 744-3) Eosinophil % (test code 2.0 % 1.0-4.0 = 714-6) Metamyelocyte % (test 6.0 % See_Comment H The Me tamyelocyte code = 740-1) count includes Myelocytes. [Automated mess age] The system [employer] generated this result transmitted ref erence range: <=0.0. T he reference range was not used to int erpret this result as normal/abnormal . NRBC (test code = 1.0 See_Comment H [Automate d message] 99854-6) The system [employer] generated this result transmitted ref erence range: [...] PLT Morph (test code = Normal Normal 41481-4) Anisocytosis (test code Present Not Present A = 702-1) Poik (test code = Present Not Present A 779-9) Polychromasia (test Present Not Present A code = 82743-6) Ovalocyte (test code = Present Not Present A 774-0) Tear Drop (test code = Present Not Present A 7791-7) Lab Interpretation Abnormal (test code = 60527-6) [facility] KqavrvVnlfjrkgtnfe9050-82-57 17:07:36 Test Item Value Reference Range Interpretation Comments Total Cells (test code 100 = 08854-8) Neutrophil % (test code 63.0 % 42.0-66.0 The Neutrophil count = 27850-7) includes Bands. Lymphocyte % (test code 20.0 % 24.0-44.0 L = 737-7) Monocyte % (test code = 9.0 % 2.0-7.0 H 744-3) Eosinophil % (test code 2.0 % 1.0-4.0 = 714-6) Metamyelocyte % (test 6.0 % See_Comment H The Me tamyelocyte code = 740-1) count includes Myelocytes. [Automated mess age] The system [employer] generated this result transmitted ref erence range: <=0.0. T he reference range was not used to int erpret this result as normal/abnormal . NRBC (test code = 1.0 See_Comment H [Automate d message] 82965-5) The system [employer] generated this result transmitted ref erence range: [...] PLT Morph (test code = Normal Normal 33432-2) Anisocytosis (test code Present Not Present A = 702-1) Poik (test code = Present Not Present A 779-9) Polychromasia (test Present Not Present A code = 28940-3) Ovalocyte (test code = Present Not Present A 774-0) Tear Drop (test code = Present Not Present A 7791-7) Lab Interpretation Abnormal (test code = 22757-9) [facility] [place].FEP1288-78-51 17:07:32 Test Item Value Reference Range Interpretation Comments WBC (test code = 11.5 K/uL 4.0-11.0 H 6690-2) RBC (test code = 789-8) 4.25 See_Comment L [Au tomated message] The system [employer] generated this result transmitted ref erence range: 4.50 - 6 .00 M/uL. The refer ence range was not u sed to interpret this result as normal/abnor mal. Hgb (test code = 718-7) 12.1 See_Comment L [Au tomated message] The system [employer] generated this result transmitted ref erence range: [...] See_Comment [Automate d message] 786-4) The system [employer] generated this result transmitted ref erence range: 31.0 - 3 6.0 gm/dL. The refe rence range was not u sed to interpret this result as normal/abnor mal. RDW-SD (test code = 57.5 fL 35.1-46.3 H 34032-3) RDW-CV (test code = 17.4 % 12.0-15.5 H 788-0) Platelet count (test 313 K/uL 140-440 code = 777-3) MPV (test code = 8.8 fL 4.0-10.4 71341-8) INRBC (test code = 0.2 % See_Comment H The INRBC (instrument 85451-5) NRBC) value ref lects the enumeration of nucleated red b lood cells contained in a 200uL sampleof whole blood analyzed by the instrument. Thi s value maydiffer from the NRBC value reported in a m anual differential,wh ich is based on a 100 cell differential. [Automated mess age] The system [facility] [employer] generated this result transmitted ref erence range: <=0.0. T he reference range was not used to int erpret this result as normal/abnormal . Lab Interpretation Abnormal (test code = 40495-6) [facility] [place].[id number] 17:07:32 Test Item Value Reference Range Interpretation Comments WBC (test code = 11.5 K/uL 4.0-11.0 H 6690-2) RBC (test code = 789-8) 4.25 See_Comment L [Au tomated message] The system [facility] [employer] generated this result transmitted ref erence range: 4.50 - 6 .00 M/uL. The refer ence range was not u sed to interpret this result as normal/abnor mal. Hgb (test code = 718-7) 12.1 See_Comment L [Au tomated message] The system [facility] [employer] generated this result transmitted ref erence range: [...] See_Comment [Automate d message] 786-4) The system [facility] [employer] generated this result transmitted ref erence range: 31.0 - 3 6.0 gm/dL. The refe rence range was not u sed to interpret this result as normal/abnor mal. RDW-SD (test code = 57.5 fL 35.1-46.3 H 26489-9) RDW-CV (test code = 17.4 % 12.0-15.5 H 788-0) Platelet count (test 313 K/uL 140-440 code = 777-3) MPV (test code = 8.8 fL 4.0-10.4 95486-7) INRBC (test code = 0.2 % See_Comment H The INRBC (instrument 30894-8) NRBC) value ref lects the enumeration of nucleated red b lood cells contained in a 200uL sampleof whole blood analyzed by the instrument. Thi s value maydiffer from the NRBC value reported in a m anual differential,wh ich is based on a 100 cell differential. [Automated mess age] The system [employer] generated this result transmitted ref erence range: <=0.0. T he reference range was not used to int erpret this result as normal/abnormal . Lab Interpretation Abnormal (test code = 14661-8) [facility] [place].KTY3084-44-79 17:07:32 Test Item Value Reference Range Interpretation Comments WBC (test code = 11.5 K/uL 4.0-11.0 H 6690-2) RBC (test code = 789-8) 4.25 See_Comment L [Au tomated message] The system [employer] generated this result transmitted ref erence range: 4.50 - 6 .00 M/uL. The refer ence range was not u sed to interpret this result as normal/abnor mal. Hgb (test code = 718-7) 12.1 See_Comment L [Au tomated message] The system [employer] generated this result transmitted ref erence range: [...] See_Comment [Automate d message] 786-4) The system [employer] generated this result transmitted ref erence range: 31.0 - 3 6.0 gm/dL. The refe rence range was not u sed to interpret this result as normal/abnor mal. RDW-SD (test code = 57.5 fL 35.1-46.3 H 16018-6) RDW-CV (test code = 17.4 % 12.0-15.5 H 788-0) Platelet count (test 313 K/uL 140-440 code = 777-3) MPV (test code = 8.8 fL 4.0-10.4 58729-0) INRBC (test code = 0.2 % See_Comment H The INRBC (instrument 25995-1) NRBC) value ref lects the enumeration of [...] . Lab Interpretation Abnormal (test code = 33002-9) [facility] Center[facility] Ecybx5760-46-11 11:49:22 Test Item Value Reference Range Interpretation [...] to interpret this result as normal/abnormal . [facility] Gfppr0797-42-04 11:49:22 Test Item Value Reference Range Interpretation [...] to interpret this result as normal/abnormal . [facility] Qcxnm7322-79-39 11:49:22 Test Item Value Reference Range Interpretation [...] to interpret this result as normal/abnormal . [facility] CenterFractionated Ggnxwlsct0097-78-14 11:49:21 Test Item Value Reference Range Interpretation [...] interpret th is result as normal/abnormal . [facility] CenterFractionated Lrhdogeun0007-60-94 11:49:21 Test Item Value Reference Range Interpretation [...] interpret th is result as normal/abnormal . [facility] CenterFractionated Rwcooihto6243-01-44 11:49:21 Test Item Value Reference Range Interpretation [...] interpret th is result as normal/abnormal . [facility] CenterGlomerular Filtration Rate 2021-10-24 11:49:20 Test Item Value Reference Range Interpretation Comments eGFR-AA (test code 107 See_Comment Normal eG FR: >= 60 = 90118-4) mL/min/1.73 m2N ote: The eGFR is calculated [...] See_Comment Normal e GFR: >= 60 = 96044-1) mL/min/1.73 m2N ote: The eGFR is calculated [...] interpret th is result as normal/abnormal . [facility] CenterGlomer[facility] Filtration Rate 2021-10-24 11:49:20 Test Item Value Reference Range Interpretation Comments eGFR-AA (test code 107 See_Comment Normal eG FR: >= 60 = 43143-6) mL/min/1.73 m2N ote: The eGFR is calculated [...] See_Comment Normal e GFR: >= 60 = 88122-1) mL/min/1.73 m2N ote: The eGFR is calculated [...] Kidney failure <15 [Au tomated message] The [employer] which generated this result transmitted ref erence range: >=60 mL/min/1.7 3 sq. m. The reference range was not used to interpret is result as normal/abnormal . [facility] CenterGlomer[facility] Fil[facility] Rate 2021-10-24 11:49:20 Test Item Value Reference Range Interpretation Comments eGFR-AA (test code 107 See_Comment Normal eG FR: >= 60 = 26868-0) mL/min/1.73 m2N ote: The eGFR is calculated [...] See_Comment Normal e GFR: >= 60 = 02877-0) mL/min/1.73 m2N ote: The eGFR is calculated [...] interpret th is result as normal/abnormal . [facility] CenterTotal Tmrpgcp4811-42-53 11:49:19 Test Item Value Reference Range Interpretation Comments Total Protein (test code = 2885-2) 6.3 g/dL 6.4-8.3 L Lab Interpretation (test code = Abnormal 81023-1) [facility] Center[facility] Fjfjvli9030-84-84 11:49:19 Test Item Value Reference Range Interpretation Comments Total Protein (test code = 2885-2) 6.3 g/dL 6.4-8.3 L Lab Interpretation (test code = Abnormal 44043-6) [facility] Center[facility] Ujjwhna1808-23-78 11:49:19 Test Item Value Reference Range Interpretation Comments Total Protein (test code = 2885-2) 6.3 g/dL 6.4-8.3 L Lab Interpretation (test code = Abnormal 25832-7) [facility] CenterMagnesium Cthme9645-86-31 11:49:18 Test Item Value Reference Range Interpretation Comments Magnesium (test code = 39956-3) 2.1 mg/dL 1.6-2.6 [facility] CenterMagn[facility] Iyjeg4060-07-49 11:49:18 Test Item Value Reference Range Interpretation Comments Magnesium (test code = 57630-2) 2.1 mg/dL 1.6-2.6 [facility] CenterMagn[facility] Dzzmu8509-96-36 11:49:18 Test Item Value Reference Range Interpretation Comments Magnesium (test code = 70175-9) 2.1 mg/dL 1.6-2.6 [facility] CenterAlkaline Nbllosvdefe0373-20-50 11:49:17 Test Item Value Reference Range Interpretation Comments Alk Phos (test code = 6768-6) 59 U/L 40-129 [facility] CenterAlkaline Chvmmadhkdi8456-27-56 11:49:17 Test Item Value Reference Range Interpretation Comments Alk Phos (test code = 6768-6) 59 U/L 40-129 [facility] CenterAlkaline Fnfomfbgeud0566-47-06 11:49:17 Test Item Value Reference Range Interpretation Comments Alk Phos (test code = 6768-6) 59 U/L 40-129 [facility] CenterALT2022-04-27 11:49:16 Test Item Value Reference Range Interpretation Comments ALT (test code = 14 U/L See_Comment [Automated message] The 1741-11) system which ge nerated this result transmit lakhwinder reference range : <=41. The reference range was not used to interpr et this result as paras l/abnormal. [place] 22670022-04-27 11:49:16 Test Item Value Reference Range Interpretation Comments ALT (test code = 14 U/L See_Comment [Automated message] The 1741-11) system which ge nerated this result transmit lakhwinder reference range : <=41. The reference range was not used to interpr et this result as paras l/abnormal. [place] 22670022-04-27 11:49:16 Test Item Value Reference Range Interpretation Comments ALT (test code = 14 U/L See_Comment [Automated message] The 1741-11) system which ge nerated this result transmit lakhwinder reference range : <=41. The reference range was not used to interpr et this result as paras l/abnormal. [facility].Serum Izqwzoeapc9124-09-74 11:49:15 Test Item Value Reference Range Interpretation Comments Creatinine (test code = 2160-0) 0.81 mg/dL 0.67-1.17 [facility].Serum Sfobpgeiuz8834-37-39 11:49:15 Test Item Value Reference Range Interpretation Comments Creatinine (test code = 2160-0) 0.81 mg/dL 0.67-1.17 [facility].Serum Dsendjcgxc2868-12-69 11:49:15 Test Item Value Reference Range Interpretation Comments Creatinine (test code = 2160-0) 0.81 mg/dL 0.67-1.17 [facility] CenterBUN2022-04-27 11:49:14 Test Item Value Reference Range Interpretation Comments BUN (test code = 3094-0) 15 mg/dL 12-20 [facility] CenterBUN2022-04-27 11:49:14 Test Item Value Reference Range Interpretation Comments BUN (test code = 3094-0) 15 mg/dL 12-20 [facility] CenterBUN2022-04-27 11:49:14 Test Item Value Reference Range Interpretation Comments BUN (test code = 3094-0) 15 mg/dL 12-20 [facility] CenterPhosphorus Jtpqq1848-25-20 11:49:13 Test Item Value Reference Range Interpretation Comments Phosphorus (test code = 2777-1) 3.4 mg/dL 2.5-4.5 [facility] CenterPhosphorus Oqzug9628-19-23 11:49:13 Test Item Value Reference Range Interpretation Comments Phosphorus (test code = 2777-1) 3.4 mg/dL 2.5-4.5 [facility] CenterPhosphorus Xjcmd5100-18-87 11:49:13 Test Item Value Reference Range Interpretation Comments Phosphorus (test code = 2777-1) 3.4 mg/dL 2.5-4.5 [facility] CenterPhosphorus Jckbo4355-89-76 11:49:13 Test Item Value Reference Range Interpretation Comments Phosphorus (test code = 2777-1) 3.4 mg/dL 2.5-4.5 [facility] CenterPhosph[facility] Rzgga4079-39-46 11:49:13 Test Item Value Reference Range Interpretation Comments Phosphorus (test code = 2777-1) 3.4 mg/dL 2.5-4.5 [facility] CenterPhosphorus Fdgio4809-20-10 11:49:13 Test Item Value Reference Range Interpretation Comments Phosphorus (test code = 2777-1) 3.4 mg/dL 2.5-4.5 [facility] CenterPhosphorus Lpdig9079-50-03 11:49:13 Test Item Value Reference Range Interpretation Comments Phosphorus (test code = 2777-1) 3.4 mg/dL 2.5-4.5 [facility] CenterCalcium Cyuts7049-55-56 11:49:12 Test Item Value Reference Range Interpretation Comments Calcium Lvl (test code = 59805-4) 9.1 mg/dL 8.4-10.2 [facility] CenterCal[facility] Osiee7109-69-36 11:49:12 Test Item Value Reference Range Interpretation Comments Calcium Lvl (test code = 82650-3) 9.1 mg/dL 8.4-10.2 [facility] CenterCal[facility] Ldgrp5860-61-09 11:49:12 Test Item Value Reference Range Interpretation Comments Calcium Lvl (test code = 58168-8) 9.1 mg/dL 8.4-10.2 [facility] CenterAlbumin Bjyfj3836-43-41 11:49:11 Test Item Value Reference Range Interpretation Comments Albumin Lvl (test code 3.6 See_Comment [Aut omated message] The = 0179) system which ge nerated this result tra nsmitted reference range : 3.5 - 5.2 gm/dL. The refe rence range was not used to interpret this result as normal/abnormal . [facility] CenterAlbumin Rqjwz5226-51-84 11:49:11 Test Item Value Reference Range Interpretation Comments Albumin Lvl (test code 3.6 See_Comment [Aut omated message] The = 1969) system which ge nerated this result tra nsmitted reference range : 3.5 - 5.2 gm/dL. The refe rence range was not used to interpret this result as normal/abnormal . [facility] CenterAlbumin Soijn7622-76-53 11:49:11 Test Item Value Reference Range Interpretation Comments Albumin Lvl (test code 3.6 See_Comment [Aut omated message] The = 5740) system which ge nerated this result tra nsmitted reference range : 3.5 - 5.2 gm/dL. The refe rence range was not used to interpret this result as normal/abnormal . [facility] CenterAspartate Aminotransferase 2021-10-24 11:49:10 Test Item Value Reference Range Interpretation Comments AST (test code = 14 U/L See_Comment [Automated message] The 1920-01) system which ge nerated this result transmit lakhwinder reference range : <=40. The reference range was not used to interpr et this result as paras l/abnormal. [facility] CenterAspartate Aminotransferase 2021-10-24 11:49:10 Test Item Value Reference Range Interpretation Comments AST (test code = 14 U/L See_Comment [Automated message] The 1920-01) system which ge nerated this result transmit lakhwinder reference range : <=40. The reference range was not used to interpr et this result as paras l/abnormal. [facility] CenterAspartate Aminotransferase 2021-10-24 11:49:10 Test Item Value Reference Range Interpretation Comments AST (test code = 14 U/L See_Comment [Automated message] The 1920-01) system which ge nerated this result transmit lakhwinder reference range : <=40. The reference range was not used to interpr et this result as paras l/abnormal. [facility] Jxggl8007-08-78 11:49:08 Test Item Value Reference Range Interpretation [...] diabetes Lab Interpretation (test Abnormal code = 15224-1) [facility] Ybosn6056-69-99 11:49:08 Test Item Value Reference Range Interpretation [...] diabetes Lab Interpretation (test Abnormal code = 46444-0) [facility] Uuwms6628-42-20 11:49:08 Test Item Value Reference Range Interpretation [...] diabetes Lab Interpretation (test Abnormal code = 97467-1) [facility] Eaeglgbaul4482-81-05 06:55:27 Test Item Value Reference Range Interpretation Comments IgG Total-Hart (test 830 mg/dL 767-1590 code = 2465-3) IgG1-Hart (test code = 418 mg/dL 011-075 3472-1) IgG2-Hart (test code = 157 mg/dL 171-632 L 2467-9) IgG3-Hart (test code = 56.8 mg/dL 18.4-106.0 2468-7) IgG4-Hart (test code = 8.8 mg/dL 2.4-121.0 Test Performed 2468-5) by:[facility] [employer] [address] [employer], [place], [place] [address]Oig Director: Petar Johnson M.D. Ph. D.; CLIA# [id number] 2 Lab Interpretation Abnormal (test code = 23881-7) [facility] Lwysunnfmz5381-21-88 06:55:27 Test Item Value Reference Range Interpretation Comments IgG Total-Hart (test 830 mg/dL 767-1590 code = 2465-3) IgG1-Hart (test code = 418 mg/dL 678-089 9379-1) IgG2-Hart (test code = 157 mg/dL 171-632 L 2467-9) IgG3-Hart (test code = 56.8 mg/dL 18.4-106.0 8-7) IgG4-Hart (test code = 8.8 mg/dL 2.4-121.0 Test Performed 5) by:[facility] [address] [address], [place], [place] [address]Crm Director: Petar Johnson M.D. Ph. D.; CLIA# [id number] 2 Lab Interpretation Abnormal (test code = 47852-7) [facility] Yakaoirojp1496-13-12 06:55:27 Test Item Value Reference Range Interpretation Comments IgG Total-Hart (test 830 mg/dL 767-1590 code = 2465-3) IgG1-Hart (test code = 418 mg/dL 797-301 3323-1) IgG2-Hart (test code = 157 mg/dL 171-632 L 2467-9) IgG3-Hart (test code = 56.8 mg/dL 18.4-106.0 2468-7) IgG4-Hart (test code = 8.8 mg/dL 2.4-121.0 Test Performed 5) by:[facility] [employer] [address] [employer], [employer], [place] [id number] Director: Petar Johnson M.D. Ph. D.; CLIA# [id number] 2 Lab Interpretation Abnormal (test code = 49831-0) [facility] Rzwgyrorlg7277-04-77 06:55:27 Test Item Value Reference Range Interpretation Comments IgG Total-Hart (test 830 mg/dL 767-1590 code = 2465-3) IgG1-Hart (test code = 418 mg/dL 147-022 1692-1) IgG2-Hart (test code = 157 mg/dL 171-632 L 2467-9) IgG3-Hart (test code = 56.8 mg/dL 18.4-106.0 2468-7) IgG4-Hart (test code = 8.8 mg/dL 2.4-121.0 Test Performed 2468-10) by:[facility] [employer] [address], [place], [place] [address]Ogz Director: Petar Johnson M.D. Ph. D.; CLIA# [id number] 2 Lab Interpretation Abnormal (test code = 49273-3) [facility] Ndfhrsbmek1647-30-27 06:55:27 Test Item Value Reference Range Interpretation Comments IgG Total-Hart (test 830 mg/dL 767-1590 code = 2465-3) IgG1-Hart (test code = 418 mg/dL 503-002 3484-1) IgG2-Hart (test code = 157 mg/dL 171-632 L 2467-9) IgG3-Hart (test code = 56.8 mg/dL 18.4-106.0 2468-7) IgG4-Hart (test code = 8.8 mg/dL 2.4-121.0 Test Performed 2468-10) by:[facility] [employer] [address], [employer], [place] [address]Ojr Director: Petar Johnson M.D. Ph. D.; CLIA# [id number] 2 Lab Interpretation Abnormal (test code = 10987-0) [facility] Dbxttsuurj9125-83-82 06:55:27 Test Item Value Reference Range Interpretation Comments IgG Total-Hart (test 830 mg/dL 767-1590 code = 2465-3) IgG1-Hart (test code = 418 mg/dL 212-069 3947-1) IgG2-Hart (test code = 157 mg/dL 171-632 L 2467-9) IgG3-Hart (test code = 56.8 mg/dL 18.4-106.0 2468-7) IgG4-Hart (test code = 8.8 mg/dL 2.4-121.0 Test Performed 9-5) by:[facility] [employer] [address], [place] [place], [place] [address]Zxu Director: Petar Johnson M.D. Ph. D.; CLIA# [id number] 2 Lab Interpretation Abnormal (test code = 23664-1) [facility] Euytpajteu7648-79-22 06:55:27 Test Item Value Reference Range Interpretation Comments IgG Total-Hart (test 830 mg/dL 767-1590 code = 2465-3) IgG1-Hart (test code = 418 mg/dL 898-568 9831-1) IgG2-Hart (test code = 157 mg/dL 171-632 L 2467-9) IgG3-Hart (test code = 56.8 mg/dL 18.4-106.0 2468-7) IgG4-Hart (test code = 8.8 mg/dL 2.4-121.0 Test Performed 2468-5) by:[facility] [employer] [address] [employer], [place], [place] [address]Txp Director: Petar Johnson M.D. Ph. D.; CLIA# [id number] 2 Lab Interpretation Abnormal (test code = 09618-2) [facility] 19:29:59 Test Item Value Reference Range Interpretation Comments IgG (test code = 6001) 751 mg/dL 610-1616 [facility] 19:29:59 Test Item Value Reference Range Interpretation Comments IgG (test code = 6001) 751 mg/dL 610-1616 [facility]59 Test Item Value Reference Range Interpretation Comments IgG (test code = 6001) 751 mg/dL 610-1616 [place] 41478022-04-25 19:29:59 Test Item Value Reference Range Interpretation Comments IgG (test code = 6001) 751 mg/dL 610-1616 [place] 41478022-04-25 19:29:59 Test Item Value Reference Range Interpretation Comments IgG (test code = 6001) 751 mg/dL 610-1616 [facility]:29:59 Test Item Value Reference Range Interpretation Comments IgG (test code = 6001) 751 mg/dL 610-1616 [place] 41478022-04-25 19:29:59 Test Item Value Reference Range Interpretation Comments IgG (test code = 6001) 751 mg/dL 610-1616 [facility]:29:58 Test Item Value Reference Range Interpretation Comments IgA (test code = 5992) 191 mg/dL 85-499 [facility]:29:58 Test Item Value Reference Range Interpretation Comments IgA (test code = 5992) 191 mg/dL 85-499 [facility] 19:29:58 Test Item Value Reference Range Interpretation Comments IgA (test code = 5992) 191 mg/dL 85-499 [facility] 19:29:58 Test Item Value Reference Range Interpretation Comments IgA (test code = 5992) 191 mg/dL 85-499 [facility] 19:29:58 Test Item Value Reference Range Interpretation Comments IgA (test code = 5992) 191 mg/dL 85-499 [place] 70954022-04-25 19:29:58 Test Item Value Reference Range Interpretation Comments IgA (test code = 5992) 191 mg/dL 85-499 [place] 70954022-04-25 19:29:58 Test Item Value Reference Range Interpretation Comments IgA (test code = 5992) 191 mg/dL 85-499 [facility] 2021-10-22 15:30:07 Test Item Value Reference Range Interpretation Comments Submitted Clinical History r2tmvDEhVIHkh1wrGBI (test code = 52409) mbGFuZzEwMzNcZnRuYm pcdWMxIHtccnRmMVxzc 6XqA5CnGzZxVVjuqjPx XGRlZmxhbmcxMDMzXGZ 0bmJqXHVjMVxkZWZmMH ezNq4ogQKpiNtrNsKvV YKlr3iaagZVsslfgNh8 n4mlSQOtJlD7wACnQDk dS0fmfcFdfWZmWIOiEI h5vO22FCYqkJ4pwJZeT HfhkbGzEsH8SFqtNYBr YwP1ERXhuAXsHCOhD6o yZWQwXGdyZWVuMFxibH KuLWS3wXcuq0C7xWPhq GVldHtcZjBcZnMyMiBO z8ZrYHz9dVrlZ8BpITK rWvJ5xFCpHJTeSBhrKU QzPHGalsN3pJ12ZJwgf gH2dAPca0Rgn62tn988 xN6ynKQiMLD7SJRlIVB ilFJcEDFbHIM7SIFffA NtF0onGTPmAM0wfleeI CkpDGwiCPPunIX9LICv mCYlU0RoLRXgXJnaPUD xmyv2PmDoNd3qlTZslH ayRSehn1vgq7wtyWIoO us2GTKfZkVvEpvcIRzk e0Ihq1bhMCMrxg1rZJP 5hORvlWwpd9Z3rSAmDR UveFSvumEuZAGoGaC8Y McfCV2exa59ZCRuDVT0 hi5jsAYrgCesfrNspGG gPJyvJ9VcRRRmf608ZF KcL2KpNBKgj3G4zlGvB qTuIWVxyZZ6crH5NZUd RSz8aJFqimG4yjScuLY cF4gdhD5qRBMjOF0iwj tva9exYEuiVPlpPZUdz JG7aeN1BSVaeMRcT7Jm eN6pANSvEIspCTHquuk 0DdTeKo3inTUykUcgHS xzYmtwYWdlXHBnbmNvb nRccGduZGVjXHBsYWlu XHBsYWluXGYwXGZzMjR irCtzmDfdbJ0sMoQkKx EwUUvqNY1hCSDsL7kpo TYkKNDbMOPdV7sdItFk uP1akUtcQHkscdNiAHV 3ZNico5ygppundIEvpp T6bOQhLuXzTfF8JOtqo GFpblxmMVxmczIyXGxh dbyhBFVqFCgxS4xbAfZ wQVUsiAogIOxgl3AaNH YxXGZzMjJccGFyfX0= Diagnosis (test code = 34) i2dmjUUlRHCyrFN4DrT gMVNud7eeb8ErbVXhxS DwJWeerKSgwkSggm22n DT0uM63FW4qSNPrYxR2 OPYroiG6Vpg9SITlERV lgCUaT074o9sow1ztsh IffGL1gHqsLLSzdwqcI rU6ZUtfQMTullhvXAm7 HHsvEEJkcXW0KFBnrLN tI9RbYKHrBE9uqhj6IO E7MTkiHRRaZyO6YXZdo YXoMGQppRurXUghz609 RZK0SwXkIMNcmhLopWs mbB1cUqHeKKUVHuTuQZ PfhXjgI7XaUHScwC1bo 2c9LPohfeSkHWv7MUTi X6zrydgwgrBhv7OvxH1 hu9ibU8QmaOffV80pm2 skrRQpdJP3nBNrOKVav mWgLXKwUPEkzAxoY3l3 aXNccGFyfQ== Gross Description (test z5yelFHzZESsiKQJJAs code = 1222243789) wMVxhbnNpXHNwbHRwZ3 XbyosxQUesVX6bSF7wf AwvlYZeyMQqWV3EVKSh ZmYxXHBhcGVydzEyMjQ tGFPcxYOakTR2GJOwSN 1hcmdsMTgwMFxtYXJnc pL1PKCwhZKmH5YfUNAp BI7yklnbWKJ0BXngoQ3 wyxBURfzyRy5zmQKjoD tcZjFcZmNoYXJzZXQwX HIblNhlNWQiDFv6fE1Y HkzmJ59yr3C7Eal4COI xTGLbG3QaOE4uNUZnxY LnV55VXpsaRSX7FPSLF hsjUJXmRR9Ai2enUCQh sDNkSOV8XAadpIIlYFA fDWQgBNq1GXSfXLdfaB SaDU3raJnvEqeqaFynh 2VjdCBcXGlkIDUxMDAy YNntRINnRK7OZgPfPSO 3DGGmQEFyBNh0AKc3EW 7ZLlXsHBRtMOA7XRL9C QRqQIp8KZwuYZ5WGFJp YzQgQAM0QKHzACIsJDT tDIk7AMKfFTjwCISdwF FsIFxcZnMgMTAgXFxmY sNgCSCrJFquxjO9YXTa YWluXGJcZnMyMCBBOlx yZAUeAJovsBlhqX6sTI CwV83bm7HDv5AuIW7BP Qh9cqVarqskhD2xEYPf cbInDIqtyTPwA5zvPqc rKrTeOmGbLJNBb39zrP VvlZNhCZRdr3TiNYx9r dWkW08nB9OkPMmgZQMx xyTjIOYepVjmT9d4wFD 0FPWpNIAzWNGeH14oHY Sjip6bvb70sxTkmuHuo CPkvDLyQoGas0Q7DBBw b2X2APUhQLRnsOIeoki lII86UNMkZSNyIS9cyA VkIHdpdGggcHJvYmFib XTtrXfbtfXeoVJ4WFWg KHjmLLJcsIelKWw4IHB 8Gm0nsJNfCRRphpPEVL 6gJMzdqz05EFV2x2lrk WVsZHtcKlxmbGRpbnN0 IEhZUEVSTElOSyBuYW1 lPUxJTktCRUdJTnwyMT NdPhrqrCDXDCP8RDofq KofsVx7b5ejpIWku8p1 SLckQIG0gTkCa4vghVR rWHeeLwqsqGFnllK3VB nJONZJLDnRZtKvVK8bS MqSNgiMXvA0BuJsHLE7 PUaIT4CYpRM2Apz8WEa 8fXtcZmxkcnNsdCBcJz XPtJ9muLmcvB2ahCYxZ 2hcZnMyMCANClxlcGlj FaOwwPWuQwVqgrH5KJD uzZRuBYE7RH8eSARjcg dkSAKjQQUmQRO5YOvoc V16eYBdJABtZEWewBEq fVxwbGFpbiANClxzbC0 kGrRvv2jgzTk9YTUBBd hxeDCyffxebmJ3QALth 6dboApyz7WbxBFpIQ4z bJlnaY6mWuKsVaMTLi0 = Disclaimer (test code = i2xmiSCtSXWlzGClOwS 9844) xFVAbVWXbf2ugSRBofQ FuZzEwMzNcZnRuYmpcd YQjAYEeFyJlr3kgw237 sZHuq0awZHBoArG1yBZ lQHIylUYwQ648RJBhMQ kxu7udz9ChICElnBGqa 6K4SFBTwkvfxRh1nUkl X11ok6O3InulA2xqUVN nSIFrI6RtCG6tURKsSk l4GAB1DED9JJAgEZSmP 5VlVB9fXMHrzWKnKFl4 s4zpqSegKTLpIDA9m2v rATielnMtYP5fli4gtM q4g6moziTeAPXuEUBaz XVOBHXjP0DbwNsnQu9s xGb8xGhaFwlhBJZ6Eid 8RO9bhf81dzw2cZlbAF ZldqskPnX7RHovBIEqt sehMNo1MUrhTYEtgYR0 RYMuuVXlD7TjTBPtQF9 fewr5PVD2BTdmRTNmKd M6IXPhdXDfYHSsqSboR Tagw755BZP5OpVvVY0i G6Yzs0V8dQ3qzJJrHIR atGNsLrRsRSFjzc0inA JcELfos0OgLKB6nkJ6k SEufNOgIOPcCP59Ouwd p6ZjGaqgWCB7WRYpexS mx6Raw4orGvUsvbGjF5 aaN1JbIOPhRDMaEKHfE oLxleOtt4Bff1DstIXq mWz8y6nhVGXsSUXmtYc hy5vvGQP7JCRiU6D2hY Cau2poFPbvURKtfVJ8e tQ8NAEsaXWzS6SrrG7h XUOhIE2njdy8e6jyFCB 0RXrrFSHpXeS5vqQ6IO BcaGVhZGVyeTcyMFxmb 442WWP9MlKjKXOkk5Wa A7KshGbgG05lmPrjL80 gVFRyxCddzZ4jwQwmiQ 5cZjBcZnMyNFxxbFxwb UFnrfcfNKyaleO1VGil jytbCIZoINkgC9pdZoQ xTVPovJhqBWpgw9JvSV SxBXMfJgqgnpR6BXECn 22vWNIuj1MlGUWirG5e qBCwOAogpeEkpYC3KVa hdmUgYmVlbiBkZXZlbG 4pHBKbOV4dVJYsjkVao k8qneLkNTKnCBJbW3Sr cmlzdGljcyBkZXRlcm1 mtsTfNKS8ZVTYAD0LUQ GxZODam86dIKCsgRqgt V1iyLXlenZsVJYto3Ls sN7cqSIBBTPzB3rpAK7 kETtam6FqjSMbrWZfxD J1FNWgs4BtOqFenfOmm EHmmCPoC2FrdVffX2qf YURmNIBvcyUzjWUiv7Z yTIPjwTZ9kGXxHY0IEm CPe93fJCOrUGCDthIoT AAdwLkqsIP9frC8hO7q LiBJZiBhcHBsaWNhYmx vJUAaj633gc1zjoZ8QM BoZKYpaoujx1IvJACyC OKccX15LMVoQGCuvx1l kkjilEPiptDbE1Qipzx 0fW2dDBJwWTnpSWJrRG ZzMjJcbGFuZzEwMzNca GljaFxmMVxkYmNoXGYx DTcjO9weQsMkSdCjOlx wYXJ9 [facility] 2021-10-22 15:30:07 Test Item Value Reference Range Interpretation Comments Submitted Clinical History f4hslOMoIQUqe6daOYW (test code = 60736) mbGFuZzEwMzNcZnRuYm pcdWMxIHtccnRmMVxzc 1FjF5QwWqLwHZwldjVl XGRlZmxhbmcxMDMzXGZ 0bmJqXHVjMVxkZWZmMH ceEb9jpWZocNhzCsBqN FJyy7hybaAOnwbnlSu4 x1okDNCvGiL4zLNpJEo hE9bjznGjaIUnJLBsOV j8zC34ELEgxM3tpPExJ GilnbYeNlL7EOqeJPDn FbV2UOWpxXSvBFEuM7x yZWQwXGdyZWVuMFxibH YrQVM3fOlje4M7dEFym GVldHtcZjBcZnMyMiBO u7QlQSc8hYocT8ZuARS aDjD6wMWhCAEpBKwmAB FxNNGubfH3eZ76LUsgn sV9cFZpf9Ylu86ho566 wG6rnIPlSGA9CAWdDOI olFJhWJTkGAT2PWQjyZ KaO3qdSKDyRO7gzxgfY IkbENazGEWgeYD5BEPf hIFmK2YrUJScJQazALJ wqrp0EuOvRe4mgXAraL idNAzil7nku8yjwRWrQ al3NYGgUoBrJnayYEck s0Vgq0qfDYPlck8fYWX 5oTIcsCwfk5K0uFVyYH ExuDWboqDnNPNtTsN2O TnmXQ6hvy91SHZqFYN6 zx7sfIWtyQnikdQbkXF rOGihG3XcPJQbi765EV NoC5HvJKYob7M0qtYgB jXdZROhyKP4sbF8CGCc JGp9jJLmlfA2onJvnNE mN5gjmV7kKKIwEL8ocs oxb9zpEGgoOAnkGNSfh US4tuI1LFIvdFMwR3Zk lJ5hCVLiCYhbWDFkfga 9PsTzRc7woTNsnUwiND xzYmtwYWdlXHBnbmNvb nRccGduZGVjXHBsYWlu XHBsYWluXGYwXGZzMjR ftXnxkLhsqM6yYgRvVy MuLJueYS7jVNMhJ0uss WMoXAUpAPGpL7avYqSx dZ0txOzhNPnjmcWsWXD 2KQouk7xzfqoasJTuif V3rCXdGzZlViD6DQjok GFpblxmMVxmczIyXGxh bquzTYVmMXbaR8ddUzE qQIZqfNoeCBuue4EnCT YxXGZzMjJccGFyfX0= Diagnosis (test code = 34) r3trbSDyELUufRX9EdD wBFWlc1xto0UzdBAukC UcEAskgTYheuTscw57m JX6nE83AO5xFAVkEvR2 XWPykxA9Eqe4DMMuTHV wlJNrX117m3cgc7jyhs DimCN7kGocOXOtchixG wR3SHujVTVavipiHGj4 TPkvCCTicVU8LBXyxVL kF9HcGYSoOU7ygpp8KU U3TCkiQWGwUkW7YYRgw YTpMJEuiZuiPLznq635 WOM3LnYfRNExzfNixBj jaA6kQsKyGQVEUhAaEW MefUslQ8YqRXRhxA1el 0f6GZxscbDtXPk6AWQl I0hgnlepmfDmx2TalT8 ky3tvU7HkfHmaG49ns7 njwJUzoLL4hDOxVSEqt cVoQYKjBLNgtGruM3f9 aXNccGFyfQ== Gross Description (test p1ujbMDfRFBryAACBCf code = [id number]) wMVxhbnNpXHNwbHRwZ3 WrnyvtSBjfKI2eTE3nj NeaoYPblNUmEV3NTLSh ZmYxXHBhcGVydzEyMjQ oNXCkcTWinFY5AEDtLT 1hcmdsMTgwMFxtYXJnc sS7JTTkfQCiG0BvJHQd QD1kjqpaLXU0KOlfaQ6 shrZQIxxiFk5ifDMvfL tcZjFcZmNoYXJzZXQwX HXzeAjiCDZgUHt5oW2Y IqueX74ax1C4Gbo5XIM gQNAqE7CdWY8wQTVuaB TwD35OIptxWQO1MKXSR ozoVRYpUY1Hx1awTKVw lTLxWBS8XDxryVJvHKL uRRNtHGl4AMKwXQamnR YrSE2lfTgiDiyooDpci 2VjdCBcXGlkIDUxMDAy BJygWZTwJT8YAhNgNAX 0BFYmPZAgDZe3PYf6QC 3OHsYxIXTiUDV2QVV6L SHqZHf2HVwtBI2DSBLd KhZjZAK6FLOeUAGyCQJ zDNx5MYInVOkxJXSwaH FsIFxcZnMgMTAgXFxmY uLlFXGlBFqadqZ4YLPw YWluXGJcZnMyMCBBOlx tPEBiZXxlnJeppI0zJX PnT26nb2XAs8XoZK9FD Ec2srZkpjxaqV7hBKYo prAqKOvpmDFqZ9ekBia yTeMbDtXwVACFw82eeU BwcPGeBIErw9FwJNn5j dQyS22sW0JdXUlmXZAx meJbSBWtvYngN1o8vHX 5YNSlFQCjQJWoB65zSV Xxja3ucc22klMrbyCfg ADztZOeJwSok6R6LFCy l2M3QFRsJHVmjSOopsz dTI46PIVuVARnTC1nvZ VkIHdpdGggcHJvYmFib JJadGtuqgCreTO1FWPp HZjuMQAwxCtjBKx9LJP 6Nq9sgUYnNPNhwuFIFP 4mJZocie89SUO6l9tlr WVsZHtcKlxmbGRpbnN0 IEhZUEVSTElOSyBuYW1 lPUxJTktCRUdJTnwyMT ClBbedeCDYGFF6SLqgn RfakUj7b4llrIEya8n1 UBekFYV0tPsQx3nayCE fUOvhZmzdiXHjoeQ3MG mWQSBNLNhYCeAyLZ3fY RvIXguTEtD1PaZaCLC6 TOdQM8UWeGN6Dfg0URi 8fXtcZmxkcnNsdCBcJz JAwB3rpXvevE1kjZBdR 2hcZnMyMCANClxlcGlj EgRpmLBjZoIdkhH2VPT mhBFhHOV8TR7sAWBtfv vgUSPbDRKtLWG3VNwew D33cDBmUNWiQGEjkNMi fVxwbGFpbiANClxzbC0 yJvFmb1sxcFg6RSISYj mkcVHdagedgoE4PKZcv 4mdaCelz3CtzJJwOZ2q xQrryE2uVeRuKeTNBi1 = Disclaimer (test code = k5gkbANtWXSmrKXuObP 9844) rJXQpZSHnt1akJEIegJ FuZzEwMzNcZnRuYmpcd BIrCVAzQrMya3ymh929 sKGth4ulXUNeIbV5dUQ oJGRggAVaI111GDMeUG tui2yoa1OnKMZniLYxd 0Z5LOABgigrmGc1eEaa L09dg4F6OqniU5ztYOL yDGAsJ6DqVK8lIQQnTt r0FYM1IZA3RBLnIQFyR 0IlEK1dETXcsYIlNRw6 t7dnrYpnAXFrGIC6n1n bNQgijfHpLJ6xbf0sjP q7d9uzbsLlDVZzPMYod YPWWYIbX2PtiVveIv0p fXm3eMrvSdzqHOO7Omo 0JA8gse01qhi8xOsuWH HowufyKeB3SAxnOWSkr pgdOMr2YDeuRMHvrME5 FKPdrTWuT3MnAHLyVB2 gvqt7VQN6VXbaDWVtTj J8ATBtqMKmZZQpeIouO Rwyb153UJI3PxSbPD6u A7Bms9X0sQ4adWJaSLP pwKZoGbPqXGAjyv5mrY UgAIbqq7JcFMM3zeD2k ZYmxOEjFPTlFH52Cfax u9ByExerCNW2WIXuriL yy8Ago6upEmXiplVdJ3 ahX3WeCKOiMCJzJXAdJ xTgxwDlz4Bmy1WxnNPd yGv2h0hqZEFxNEWdvDh iq4wmQDM5NOVtF9V6pJ Kmz1wzFYybLKQctSC4c cI6GNGmfFVjH5IvbM5t HXKpTP1mrsn0z9rqDJZ 0OOmiZLHxStB3pfD0NF BcaGVhZGVyeTcyMFxmb 495KSS5IxAuQPNga6Kx C3WebRcwV42biOaxU52 hCVMzmNaxrF2zzXaipI 5cZjBcZnMyNFxxbFxwb TUsolnyVNvybwY5FUkn oqtdPWWnCEwtD0zzRrH wUEBklXniOFgap4EhVK NjUHEsNxhogzW6ZQQZk 74uPTVaj3PvEKCohH4f fYFiTNnxgvUzuEH0XGg hdmUgYmVlbiBkZXZlbG 2tFCGjMD8gGCCgqxIui o4pntSrJKEjLUMzP1Gc cmlzdGljcyBkZXRlcm1 xwfCqKZD0MTTVUI9CUI CaYHLab34zZDQcwAvve R0hiPAqljJoZJRyp7Sq kU6ftELFESRwQ1amQX4 mYEjvo0BzdBVhiGQnsR G5FQVkx0JxIiVilwXfo ITagJYrL0KdyRbiD6wd UAOzIZVaruIzeBJhr9K zRVIjjEV0zNMmLB5ETv ZWf45vIKJrCMVSlzFbT JYwjVlszWZ1jgV8nM5k LiBJZiBhcHBsaWNhYmx yXZGdx568jd7zwyH9OH GpVSItsihjo2QaCLDlV LIduM04PBKoEQLpqn5s hjcidNPdbjRuD8Gpsxz 5bZ8bROGgCGmnLZNnIK ZzMjJcbGFuZzEwMzNca GljaFxmMVxkYmNoXGYx OYphR5eeYhQdHkQmDas wYXJ9 [facility] 2021-10-22 15:30:07 Test Item Value Reference Range Interpretation Comments Submitted Clinical History p0girIHsUTRwe0bfIQO (test code = 91812) mbGFuZzEwMzNcZnRuYm pcdWMxIHtccnRmMVxzc 9GpL5FfRpPbFJsfuwSo XGRlZmxhbmcxMDMzXGZ 0bmJqXHVjMVxkZWZmMH yfDd4mdMUetHggRwSqB AFtg1lnzcUWjzgyhRh3 j7diHCCaXrY5oUGqKLe uW8rkmsDvhBXoBGTuKL e8nI93KUMhtJ7heMBnF ItzdiYzFbC4WNdzFGYm DdO5DFOyfXFfVKCjL4v yZWQwXGdyZWVuMFxibH PtFKY8eHmuy9H0sOIcq GVldHtcZjBcZnMyMiBO q3DjYVq5wNirI4EwQVY nPgC5kUWlVKPdXZaiRF UuJDIroiE1kQ61WPwvl wI2rMQoo4Mvj67qm816 cT9llFKaUJG6IFXgKRC ogATsSOLqHKJ7TMNqhA UpW0qtGHSaKS2mzfsdW UpyREbnMNGrlCR4VVHg mXFnI8FlCTNgOMkkCFE ygbg2XtGmOx8moTSmdO rwCTkgx0wzb3xmcIHiY ft7XPMpVtXqZmdhBGdn x4Tkj8buTUGmhb2cWVF 9eGCngTpsn4H4yRTlCI IqoXOuqtZeANRbIzQ7C JfgTZ6roy03HXRdSIT5 dx7waTGxjKlotwUuiEG vMQvyA0HqZBHql646WU CkE7CjQUCbu6C8itMbA nQgDPCwpXE7ctU4NPDg QCu9nXGbiqT2kkUtsRY kX9ajwM9cXLQpXB0tjq zyi8nyISpcQBfuQRWql VO2vuP9KJOzmTXxN6Wv sB1zSYLyHRbrUIHtroz 9FcGtXh7eqBRczShtQE xzYmtwYWdlXHBnbmNvb nRccGduZGVjXHBsYWlu XHBsYWluXGYwXGZzMjR waJiijMccrE0kWaIuQc QvJOepAR7jXOLtR2xld OZlMHXbSONjN3iuFkLa mC2icSxuYYwfhgGjLGG 0KIjbd4sevrsuwFSnac V5lBRoKdSyJvL9LMxjf GFpblxmMVxmczIyXGxh sxvfYRHvTKakO4lyZlP fMIRquLguKKnxb6XkUS YxXGZzMjJccGFyfX0= Diagnosis (test code = 34) o1oviYUxUYKtxCA9LdJ kUIRgu4mqk8OrlFEhkG JqMAcqqBQtyeAwos82l IU8uS93WI7rWXLwXnP5 VDChgmX8Irm3LZMrXYF yyRRdO509w3iax9ogjb ZeoMZ7gZfuVYRxarkpX eZ2NBdzAEVwoivvLFh3 RPqjYXIzsBZ7KBIhkJH lC4LmHTMtNX7vgln0RV E1FHulCUBfLiF9VJWnf IPqZQKjjKmtLYbpf925 ZFW4RcOuZVPpehMxoZi daS0hTlRcRDPPGhZmAK DwhMblL7DwGMWkpD8qo 1n1TGwvgiSwWCq7GEXh Y6myddkwfiRyh3XnvB1 ic0tkB7YsoJwiK85zi7 lfhSVemNT2iMMfAVStu fMeLTYtERJxuEalI4y4 aXNccGFyfQ== Gross Description (test n6tikXDiSEKqjJOCSWm code = [id number]) wMVxhbnNpXHNwbHRwZ3 EvhhvlJSepUE2hRL8ov KbmqEJcyCPxNJ2VNVXa ZmYxXHBhcGVydzEyMjQ bFFNicQYeiIP3BCCtIG 1hcmdsMTgwMFxtYXJnc hC7FJYggMCgH9WcKCSn GV3epyqyZSK6WDbtrF9 sgwBPNmeoXd2xwRTvaA tcZjFcZmNoYXJzZXQwX PMcwNmpOLFeFZc7mV1S SnskV74pb3M6Hgd1QAS dQILnK5XfVJ2lJRKcoQ FwY93FEhndYUP1ZJBIZ fufMTHtVU4Vb9xxCIPw uSCuZHW6LDlguIZcZZJ yCVMuLFa9PBAoJUstmJ XjGI9gdNfdVrtwcImty 2VjdCBcXGlkIDUxMDAy HAqhVAKpSX5KKsTsHQH 8JODtPCTyILu1ABv6VV 8VZgWeRUXpSCD7OFJ6R GCwWRc3KBhwTM1HYOWz JfOnVTI7EWJzGRQuZWE aGTq2YYEyLCshNMPepT FsIFxcZnMgMTAgXFxmY zRnLOTfQVwtjbP4DVOy YWluXGJcZnMyMCBBOlx mPNTwXJhgeFoxnS4zER EqW31qk5IBy9BcEF6AG Ed0gaIjcqaicZ9vRVPg wqSjYMrgeKWoX6saOah pAeXwCfBrWWWEs22smR LfnLDmFSHzy5TtTGd3a xHbC91qM7SiARgbLRPs fgYpTNHmkHkiX8e9oXD 1HMJsTUGuDDOlK11yKM Wwzq0sfh30ilUdtjMey GBwmIAtTeZgb6A9WDCi f3Y6OTQuJCQygRHjvuy aLA77LQExSZPpSH1jzS VkIHdpdGggcHJvYmFib IAuoIuhvtOrgXG3ACZz PLxxGAJrjIocUIt4KDF 8Pt9teJDsVDDypbRWNI 1cSAxswq84ILA7a9qbv WVsZHtcKlxmbGRpbnN0 IEhZUEVSTElOSyBuYW1 lPUxJTktCRUdJTnwyMT KgLjxnrUPWBEZ5YTrfy XmhvXh6o4ihyCPgx0v3 TBnwFEO5qHePp2bwwHZ rHKflYbazxBIdriV5HN wYCZGGBDdTMsCpHU0aD IrKFudVNbT8CrFtOWN8 ZFuGL5DScYE3Iji9CKg 8fXtcZmxkcnNsdCBcJz XDnU0deGrhiB4xiHUwV 2hcZnMyMCANClxlcGlj ZqQxiIJqHbPldyH3YBW ztUIxXOS3ZM4jOYBrse ffMEJsDMCgTVX6FAixm E87pAGdEDZbKOAluNWq fVxwbGFpbiANClxzbC0 yGpOfr3bypCq3NVPDPy fukXQsnudqrpM9XCUaf 5wtuIvkc7PlcEGrVU3i mVjfsJ9cYjIyTvFYWw6 = Disclaimer (test code = n1cxbGUyUXXgkZZpXrA 9844) sQKVwKFVht8ubHCHdyM FuZzEwMzNcZnRuYmpcd UFcZFJyUoUfn8okr455 sCNci4wfTHZoEzF7wAT mBFMptUSrI688MLZjWT inb6ovj5TvHVAvsTXpu 1Z8ISLPkljvqCg9iJrv F21xo9X9YyurF3lvJKX pMDViQ2GbLI3tDAMpKe a2OXW8ZTN4DTFhGIMrK 0LeDJ2bDOQbvFXdDNc2 m8zsxCpcBMFsSWO3k6e jOZroveCzPF0itk1bcO n1e9wdxrDmOFNlDQPva LBWLKShB3ScoBrwZk5b nDw4yWqlPwgdFIJ0Ygl 0GZ1oaj61sfw6tPtkUC NygqcmNoX9ILbkOCUaa imrWCb9TIrkLYCpoME3 HYHsoXVnS5OxSWIhUT0 prxj1DEI9WAudKBEuFb X4WSZcyQWkNDHanZvqS Qkfr104YOC3HnWrDV1y H9Jvj6I2wG3paUDsIWR zjJFnVzQkDAIuvp6ygD CjHSeem9JmBTL4vxK0x NJtxOPjEEEtEZ26Qowc j4OpGshhXDS6DKGfnmF pu6Pzh6qrTqXtmsAtE8 ooA9JfLYLgFKEhZTDgV bRszoIiz5Zmc4SgvEGx dHj9p6heIFAvANAudUi hz9apMVE3JFDbE7O1vH Efk6xsTWvcAQSoiJK1z sA1IYLjvJXeY0IpmE6n SJEqEG6fpvb1d4tcBQD 2NNjjVBKpEnK9pgT4YD BcaGVhZGVyeTcyMFxmb 777QYS1IaUlPWLmn0Mn K4IimEwdB29hcOcbW80 qYIRdjNooeP7nhMyqoS 5cZjBcZnMyNFxxbFxwb QZnmjtvLOsojtN6ZEgu afajKFLaMQgtD1krDqT qHCXluLaiKYefh2QwVZ ThXVZiNvdbtvX5IDNUf 73rLDUru6IuGMBouA4p yVWfIEvkfsBmeQT0EEn hdmUgYmVlbiBkZXZlbG 6oHHWwOS8gNJXfbvWku p4ivfRkEPMjIBGkI3Id cmlzdGljcyBkZXRlcm1 bhxDcKXT6AEZCWX6XIM YeBBIyt64wAJBztWuxy E3edIOkioIbPDPse9Nj bG9njBIDPGHhX3qyCN9 yPBavv2KjzLGpgVNfyT A7LKFrd1MmCeWxtnDyg VFfeBZaH1LseYutB4tq GPBsERVsyvSjwNUrl1Y uOFCipZJ3fVKoGP1PMy CWg64iJUPjJNRNxlVhB ZHwoAsanBO7waP2nT8q LiBJZiBhcHBsaWNhYmx kPMOzh182px4sfxQ0FC LcMTCgtlmlm5XgEDKaQ OPxrT32HGDpTYJart3c scqxqLCntqXcM1Hiudl 8nW2lXLVhSDukHTUjTO ZzMjJcbGFuZzEwMzNca GljaFxmMVxkYmNoXGYx ASygF9tbHuPsPoXzWky wYXJ9 [facility] 2021-10-22 15:30:07 Test Item Value Reference Range Interpretation Comments Submitted Clinical History x9yqhYLsFXNdp1igNCP (test code = 58129) mbGFuZzEwMzNcZnRuYm pcdWMxIHtccnRmMVxzc 2ZnX2PjXfTbLNjudeJc XGRlZmxhbmcxMDMzXGZ 0bmJqXHVjMVxkZWZmMH pwIb9nbWJkeMqaGkXcN YZym1kschJXaojmlRa5 t1lwPXDnXvQ6gFGhOPm cU9fvieZcmEPdMIXhTH u3iK15BQCicJ8htXFfJ AkiexRkRjP3FCshFGXg BxP7BTSkrXGoUAZvE9w yZWQwXGdyZWVuMFxibH ZqVIX9zYsxs1E3uDQtk GVldHtcZjBcZnMyMiBO g5YnWNy3nIaxU8PdMDO lUzP3iPJpEVKoUTfbOD ZuVHZcisU1pB81YVoxp nD8zVFad4Zdy76ke914 hV0kpUNnNYG0NUWsFOY xyOJqTCYjJUI3NBWopY OaU2pwISBgOU7vixjyQ JpbTOuhJXJrrIE1SVGq dBCmU9RmTFYyMKckQLX cmzh2EhAyHs0cfHEwfG rxMVule0piy6vovVBmT ww4KBXzNlQaKxnkUUvh l9Ncl4yiUNFrem4aYMT 0nQMubFsvl3E1fKJdSY CddAQotnGeEQUxQyO1X SkkEQ0fzf12TCVaSRG7 zj8qiDEsqQswziJrkLX lNNrxQ2JdUXDwd405VD MdB9QcNBTyv2Y9zpNhO mHxRCEsnCU8tcL5WBBk WYe5pEJqonP4jwVdcWM bJ4tbcS5dONYaKV8dpx yqn7rsIKflNKioZLWji IW3gwR7JRDwnMGmY7Am cP7sOOMoHExwZABjbmj 1TkMbIc6wiAJjwEkpJN xzYmtwYWdlXHBnbmNvb nRccGduZGVjXHBsYWlu XHBsYWluXGYwXGZzMjR vuGmyvQdvdX4jFdBtLb FzOAfjGO7gMTSeX9cjh GAtPXBiUIDiY4xqRfXa bB6hwLcwFWgtzxKrWNH 0FVfda0rfottxwVQfnx A7qGJaQpMyMuK4QWxrp GFpblxmMVxmczIyXGxh vzotORTuQBjgE1igSuC kXAPrdYzpNEqdw8TpRS YxXGZzMjJccGFyfX0= Diagnosis (test code = 34) m9lwgYSkEORqeCG4JlL hFDUjg1tsk4YohILujD UsRZeyiVSwbbGjll78i XA2dF35LW6zOWZbZvA1 PIMjarT4Wvl0BBCdFEB qsPQtN031k8laj6etne UruFP5qGpyOFZartqvL cW8WUcyJMRyruziOZw5 PIdtIZRrxDI8FYZuoDR fJ4InWEYeQI5ebpo3YE L5KUinYIFlNkO6BYSjk PTeHVEueXmyWDzgd141 QDW9ZgYvMBAxssGcpVr zpQ2wKzYmTMHQHkCtTP CeiAlgC5PsLUUhtG1wy 8h5NFefkcScFUw1EJFu U7rucroecjPfr5HftT4 wy2xoT2BfhZqhK75on6 nfzHSunRP4zMKmNGNlf gMnFPRnBLWelUhgI6a8 aXNccGFyfQ== Gross Description (test m3rlwEEtXTTqtWXSPNk code = [id number]) wMVxhbnNpXHNwbHRwZ3 VunnieYGymEI3qUT2iu BfjpANxfDIbJA7XOYMb ZmYxXHBhcGVydzEyMjQ sBEFlnQCylCP1WYFmKK 1hcmdsMTgwMFxtYXJnc bS1LNRqiNKmV4WqOFZs LS6ddkkvHSC2EQfmcO2 ylxJQEcbjVu4grOMleD tcZjFcZmNoYXJzZXQwX LAcfWwhWXHsYTq1wD6V ErzlS34rd8U4Uvn8TDF dDHQcP1IhDJ4hMGVlnM AqJ86WHmrrMBY8PCBSU ovwSNGfWJ8Sk7bbPCCd uDLsTRV7XFqvtPYrMPB pWBPtCMu0SGHvKNbkzQ MsBE7jlNkyRumlzHvyv 2VjdCBcXGlkIDUxMDAy XNceJCZbVK5REjEyXFY 7KXKbMCTjJYd3NTf6DB 9GGvUlZZTxCHG2IPS8D LSrIZz3VMzaDH1IFOPh XnTcBBS5DPZjGIQrFIW jHWh2OTIsTVeaUTTndN FsIFxcZnMgMTAgXFxmY kFyKNFrPQaupcY0CRSe YWluXGJcZnMyMCBBOlx wNMXlFSmziAqwlO3lAL WaJ41tb3LRb1RiQF6AG Kl9oiHbdxugnO9uHPWi pgOhANmgfRPqL2yjWug uPbHrEkJuNYDDj04ahF KnkZCrKLCut4MnEHc2o pLhI33tS1HvZLmyKFAk aqPuSTOvxJqvR3p7lIH 3JJFiNNMbCTMzW10aLZ Kwpa5epz83trIpnzVuq IGdoXJyGxIst1C9EVKm u4I1MVTrSELvdGAwgbz gVK74INElOPNtNO2zcB VkIHdpdGggcHJvYmFib HXguFjpjnWiuJP1QVPs CZyzMCVkxHmjQIf9TTN 6Io7wzIGkHVSahrMSHJ 8xOJylma06OXZ2e7ryc WVsZHtcKlxmbGRpbnN0 IEhZUEVSTElOSyBuYW1 lPUxJTktCRUdJTnwyMT TpCipklQDOIGW5ICjux HmpqZd2r0bqzVOkb8d1 FKmkXRJ3yQjXf6tbfFF jRAtaSjllwIBtjoS8WW oYSYSCGWdQDsMlUO4uI OeARltOZsK5PlRrUCL4 DAiME7TMdUO4Hqs0KOa 8fXtcZmxkcnNsdCBcJz QHbE6mlVzkwK5hlNOpE 2hcZnMyMCANClxlcGlj AbSzvZXcWrNoshF1BHD wrWOmDQG0XR6kAPPypq qwSFBmNNFsDWH8NEzaw S43yLRuUKDwBWNcuZZm fVxwbGFpbiANClxzbC0 oDxQbp0eqjBe9WHNXKd iwnYFtoquuhhM7QSKje 7cxgWrhd4WeyJMnUL8y nCbllQ3bSaLvAqAOXm0 = Disclaimer (test code = b2vsfEQiEOCveDTlIuV 9844) cDJItPWLhn7niYXQupD FuZzEwMzNcZnRuYmpcd WTsWFEyAcFfi6bra975 uUDxh4xwRYYfAuS2vTO iMHExdVIeG122NYAdHK qbz5cou6QmTFBvrAVdu 8C8KGWVeoeamGx1uPss Y26lo2I6QnaiX3wmCXO vEMAqB2UzJN3fMLOwGc x8SZB5VRQ4WGAmXDEgA 2CuDD6lKLJjvQKoNDz0 w1mtbLjsPJLsEOB8v9k jLRihpkXeKC0myp6rrZ w5a1oezzHdWATqUIOis TDPUCPxA4LanLdyXn1u jFx2yZfrVcgqCVJ5Ouf 5YT4fvf16ngx5tAybQJ PifiydEgR5TFvtVLHzl eloZOt4SUmnDYHdbTQ3 ZKSwhFIgO0ZxUFTiMA6 efsi4BHV2IXwzCGDgOn M0RQIlsOUbFEQzkDcaQ Eaiy568UGO3TzPhLK4t L3Jmg8V8nU0wiMYyGYC pbYDmNkThKAOpki2jxZ IwDKemb7TtSND4guE7g CSgrVHuWINoGN47Hvja e1QaZvriAUJ8UBBzxyE ih1Doj2wqZcPjjeNgK9 zfJ8AeDMEgXMIfOPSwP tRiieKco7Ieu5JtqTJl wXv4w8voFDWqLBFdxGx zs9nxAYS8PEZfL8A0bH Ytq9ebJIqkQLVukYF0n wJ8YFBsoXTqI2PbnX1o TIWnXY5vjnh2j4ctXDB 2SQhcENPwYrD3apP2JB BcaGVhZGVyeTcyMFxmb 855DZH6MpGqLDZyk1Eq U0KumFzcJ01afLqxI47 bNVKxqUvjdA0ehXgzaZ 5cZjBcZnMyNFxxbFxwb XFuwbhsGVpoxjE3XSlj ehqkYLPnKOdpZ4vyHkV cCWYekQooNIlpc6JdOJ XxBQEoZqzqpfZ8XUTKi 79rITJpn0DmGGIimH1y lHRgPIdvmeZrnWU0PYr hdmUgYmVlbiBkZXZlbG 3hTJUyBY3aGNWhlrVgm q8lxgMtOLBhICBlH4Pw cmlzdGljcyBkZXRlcm1 jqmLfIQI9QLCSVQ4OML HjVFFbv23uIKTmkUvce K7kvOVnrpIlBXYyu7Pi iK8ioYFJCBJaU2mbCG0 oDLocn3WasCYpnCRasV R5ERVxl8BgVxJsxvNpd ZYzxYRcN8KvvAvnD4hr JKXdMWOwkgSlhAFnp5Y mUQGdoLH4pOErRQ4OIh UEq27qGBEeKFPTujAcL KFfjRgazVO8roR9vI0d LiBJZiBhcHBsaWNhYmx hPBMir439qn8uqmL5MC QfFWJxunseu7RlGFNvL RTtaK48TYXdUDEbfw8e hzgeqSKqxjJnW4Mxifp 9eO2zTNSpMNokTTByMY ZzMjJcbGFuZzEwMzNca GljaFxmMVxkYmNoXGYx BCncO6ipAnEnLeMyPyw wYXJ9 [facility] 2021-10-22 15:30:07 Test Item Value Reference Range Interpretation Comments Submitted Clinical History d5cyvIShNGXsn3qsXLG (test code = 01896) mbGFuZzEwMzNcZnRuYm pcdWMxIHtccnRmMVxzc 2GzJ8FcDeFxNWhecgHf XGRlZmxhbmcxMDMzXGZ 0bmJqXHVjMVxkZWZmMH cbSz6lrBPwwUntTxCzY YLlz3cyifBDgrxmiRy3 k1ooDEJwJkR6nAKyBUg yZ3irflMfzNRwKXOxCA o2eM29CVDqoR3yrKWuD OqlsuHwOcW1HDvzBHDe SfC1YITnqNOgYZYdO3o yZWQwXGdyZWVuMFxibH MnGPR4wBzpo4U7mOQty GVldHtcZjBcZnMyMiBO c9UoNBz4wNmqU3CpHNZ kAiT3jXWpDOZqPRqzKQ ShLTVvdlI8pI57BFktd sA7dGCdw0Hdb17ks092 mO8yrYKlOOC9DPQlOMJ bwFAdLGCzVSE7XMQknI JeP9zoITZhGR5yvkbdY YytJSwdCAJkuGO9BGAf oIXmT5PtRHTcJLxtMPY btcb4ZrZsQy1hgNShpG yzPZhln8qxx7psgVDeR dl5VFIkEnJlQqrdPPks s9Lki1hrIYUvlh4xRNI 2eFMjvFemj7C1aINgSC PrtWQjrgAiMXYfGlU7S YnlBL7dgp07HUKoLCQ3 oj7vsRDiqXbqriUlvIH nFIhpX9TbHUYav076AQ JcH5NrIMUzc3V4ctGyD iGrNNKpgXK7dnM6YUHx GLb3uSQyzoV8feXzsOI zI9faqQ5dIFNtAH4lbl que7rzIWdwLSvjQJDsz MN8hyI8CCOlsDMiA4Xg pK3rZNXnUHrbTRXoopf 6ZwJrGm7avPDiwEynPW xzYmtwYWdlXHBnbmNvb nRccGduZGVjXHBsYWlu XHBsYWluXGYwXGZzMjR mqTxzlUzzfZ7qObQcGx PzJBkrZW9bVSMuQ2lgn AFnIHBbLFAiA6neLkUu lC5qnItcEVmgxbZiWOA 8PQkxb0qlaxoigRDvrl R1nEOrWhKnYfF7LKqph GFpblxmMVxmczIyXGxh thijVRSuGMspB6vvNsC iYQViuCqkKNjiw2YrNI YxXGZzMjJccGFyfX0= Diagnosis (test code = 34) v7eorIJoMNBwcHW6TiU yOBAbx4bjn4CktLCitD QxLLwdcPIpzbWjer75h AS8jJ16QR4oWRYkIvP1 JNPjxvY0Tcf5FSKpTJI enYSqG921j3gfw5wpuh WhiPW8oQeeRRTqtucdM hJ6HGmfLXOmlpkdDVo4 BKcdLDTusYS1WUFvxUL xZ7OlWCNlIT1pkrz3GY P8MRorBEBvZmC1FKSch HLwMSNsgClqSSwix438 QYM5ElXvVNNaogDjqRg puU5aDpKnSHGDFcQmFK CggNpsV2CdQODyiA7ka 2j6HTbufhXmNDl7WGSd L0glfhsjfdQff1XssE8 uj8noZ8MezDlnK77bx4 qrgMRfmBV6sMBoVXTtw yUhRVTzTNFmyGjdR9r7 aXNccGFyfQ== Gross Description (test p4ahlSKjMKNwyKUUNHd code = [id number]) wMVxhbnNpXHNwbHRwZ3 PjwrvySRkbWN2aGT2ny GajrCEwdRBqDX8KJZUu ZmYxXHBhcGVydzEyMjQ gQMOrvMZeuVZ0HBAiIZ 1hcmdsMTgwMFxtYXJnc gO5KIGueWNvM7HcNODl FA3owvheWOZ1NAefyQ7 nodVMEhotAe4bxHNtlO tcZjFcZmNoYXJzZXQwX GMlrTwzYOIsAXk9mH9U JhxzY91cy8S2Wqb7CUC aOYSxQ2BnKH2zBCSxhA QkZ34NKxcbEYN0FSNQT qamKJDfKR8Ec8yxILLw tRZkGCS1TQrxbBAcJSL sYVEbCXu8WIZlMRfctG OnYF3xnAnzIufgaZwmj 2VjdCBcXGlkIDUxMDAy JXtpFVRqEL9NZtUfLWR 1KXTnEMBtWKx1GVk8TX 9WRkLeVPSlOSC1DYG5W AMiTVv4KYquYC0YBLSu DvNwOZR3TTUuTSWlBTO tYGo8DNTzRVpfETRedR FsIFxcZnMgMTAgXFxmY vAbUEQwOIskzmW9ZUUd YWluXGJcZnMyMCBBOlx xCFQnXPukbAnatS1xPW UfA33va2LSh2NtSV3FJ Wf5awUvxoroxI2oSVNl dyZsKHvehCEmB8spMdj lAcTqJzSwFWYXp12aiH DxuYBvEQYwz5EzGIg6g wPbQ13hO0HdGMqtPGUb viZhOGBujTtkD9w8sYG 0JFGtCQHbJEEbM74aAI Dava3aok55olBiczLgk LTixOXoXpOza1K6HGHj q1S1SVNcTCScmIYosqv jCN34OJEbLWIrNR4ufS VkIHdpdGggcHJvYmFib PRgsYehogVwaKG2AFCu OPhnGTTwrOwqRKa5HVL 7Ys5jzMHjIQQtubCLGB 7zVIfkni26WNK4b2zec WVsZHtcKlxmbGRpbnN0 IEhZUEVSTElOSyBuYW1 lPUxJTktCRUdJTnwyMT ZiWlraeEORZYA0VAjmv WxwcGc0b9synLWnl9m6 GQdwCKU9vSsPz7mqlQP eCZbvFxrjqNJmgsE3KV qGADOLVSjOSwGvWV2nV XgCOcoFJqG6WfDjMMT5 GEgEN2LRwBO7Bxq9PCd 8fXtcZmxkcnNsdCBcJz LDyL6foGftnT2lkNYzK 2hcZnMyMCANClxlcGlj EkHeeSBdBxFcriP6QPQ yxWSvAEI3EY9pMKZafw efPMRhUPVpQOT8JJsko P50mKNsBVQtSDZycNLw fVxwbGFpbiANClxzbC0 iKqNjw4penZf3VQXFTe huqNFhbmedotM1DBTne 4ptkPmww2PpbIDrDV7i zAyprI3oGlAdFaNUZh4 = Disclaimer (test code = u7abdXPpDBDwuCTsRzK 9844) sLIOkFYEhf8npGRZvjP FuZzEwMzNcZnRuYmpcd VWeEPQqSzLqu9vzw431 aVLix5zwWQYyGpK6sCA yKVLkqACcW404LACcBB hsv4qhy7WuSOIsuGGpf 5T8XQYSuswgaGu5rUoh O38fu5N4YoewS7puWEV vRCFoU6LpTT0kZDVsLz o4MCQ7JZY1JBIaRZGdO 9QsAE1uRXHdxUYcIHs7 r7hvyGnoUQTtFEC9k0h cWEckbaTyIV3ohm1tuZ a3r7zrloSkBRPyARHdq ADUYPGzY0QhlDshMg4q oHi9zYkjBmkrVWN4Qzy 4TI5ipm58pxm6pHunZB XnracjWtL4FDhiXTZrg kpuTFn2JUgwLCYkmIU9 UZBedRYkI2TkJEZaUQ5 gcri1QUX8LPdjTQYpSw C8GEMyiVJmDYQvvXurO Cmyk409HGV8ZhHcCG2v D1Vyc0J6oG4uaMCeFML vkQXgZtLjASVgjc1fwC XdGTmrz8GhASO2aqK0i GHpmDGpITUlYN60Rieq q4AdMoawEPA8CZPpxjY gg6Zdq2wyEmNayeKlR0 upY3HqLJByUZOwSSVhR aJipjFzb6Nif8DfaFQj zWi5d8hnPLAmTBTciWl zc8ssMFS9FRFuT4K0bK Lna1ozVFpoDWSwbRJ8h xN9NNDrmBZzM0TaxB2k YFEnSZ4gznp7x4hxDXW 4GGtaIPDlRbA0znS8BI BcaGVhZGVyeTcyMFxmb 152CIJ7WxMhXYJuj7Ff G5RfyApnF25nrJdgW17 bVACwrTcwaG8uaPdlyE 5cZjBcZnMyNFxxbFxwb CNlsoavUCuhjwY7TDok acqxWSHjFWbrD3vcMwU yPNLguNjdAKdem7EsXX WeVTPpCwbvnqE9JFWNh 17zUXDlk1RcRYKauS0v pEBeJNtdmmHbjCK9NLi hdmUgYmVlbiBkZXZlbG 5vUBTzVI4mRFPoufNsh d6aufVgOPOkINUmC8Sp cmlzdGljcyBkZXRlcm1 mwyXrQAZ7DONXGQ6UXE TrUETcb13pSCGvgJqxa K9ufBDcspKtICOql7Gl iT8cyJBZJIJlS3fgYO4 mQZzdx5UsjGSkxRLktX B7EKFys8CvWlChroFwl RLtvPHwE3XsbUscQ3hh QBEmWIUgmuDqyIWhq7X fBALqvOT5hLUtDX9SQp ILd05eVNRgETTLjoOtO JItxNatmTL0ldZ4qK5n LiBJZiBhcHBsaWNhYmx mNGEww224hh9dfwE8VU BjABOsdfdxm8NwGZQlR PVawO93SUPvYGWprl7c ttjbyZYwvbBoM4Jlwce 1tN0rBADdMHlmJWQyGF ZzMjJcbGFuZzEwMzNca GljaFxmMVxkYmNoXGYx IUorI0hkWxDrArUzIum wYXJ9 [facility] 2021-10-22 15:30:07 Test Item Value Reference Range Interpretation Comments Submitted Clinical History j1cwvPGsBIQde0tlSIT (test code = 45555) mbGFuZzEwMzNcZnRuYm pcdWMxIHtccnRmMVxzc 2UrE3WiEzGfROpwvzPv XGRlZmxhbmcxMDMzXGZ 0bmJqXHVjMVxkZWZmMH ygDc2dyGLboNznWbXaL HLye8ksciBSpuykcIc1 d2wgJNIjYlK8yBZqHOo lT8rfozBdmZLuZXAwHJ l6dA26LEYixA2cwBIpZ BeqgpRwZgN0AJbvDKLh UjX6TXCkfWPoGQTiR6m yZWQwXGdyZWVuMFxibH NqDPQ4yHvgi4J6xHRcf GVldHtcZjBcZnMyMiBO b2TmJVh5tTkiO0HeBZD mNcZ6yXIhVADmLUzuNJ MfULDippG7gN35QFsro xA5uHAfb8Gzk53yt528 aQ6ifDGpFIN5AOCrYML boABaRVTdJQA4ERRiqH WmJ5cqMLBoAA6ajvvlS OlhYCfhEFLpsIQ8DWWi wTBdN3QpIVUoYTyhKLS xrsp3GsEmSt7cdVWdiE fzROnre0fxx0symTLaW qs1EGQpNrFoCfnbBUks x3Lbk5wfUZFnok7jQHE 5aLGrrExnv2Q2iDKfNW VecKSkqiSwGNZgHzS3L DuhSL4pin58USMnUDS9 xa8whFEmsTfejsNdpVG jVIinI7KcTKJqv409RN PgI6RbPDGry9F7tzDzJ sBlXVMvsYW5bsI5NDNj WVo4fWZoghS1qvYaoVO dI1rknW1vEKRiUK5dgb flq0enKBymAZfuTJCyd SX6pbJ7UWQxzXYuD5On hW4kMQDwZSfxVZItepl 4FhOzZz2vaRWhoOokTG xzYmtwYWdlXHBnbmNvb nRccGduZGVjXHBsYWlu XHBsYWluXGYwXGZzMjR xoQbvnIhlaC3uJmOrHt VrGLyvWA2rTGHnM2wke RGbEPIeOSNmE5sjIuGw nO1doEaaAEhphiMuBIO 7JFwcd7aqjxapxNYwig P0dORiBdPzHkO9CEmgk GFpblxmMVxmczIyXGxh pvtwHDKxOTrzW0xyCzQ yMRFpwBkcEGprv2OlWD YxXGZzMjJccGFyfX0= Diagnosis (test code = 34) r5qzqCDcFCGreVM4XyC rOXJpl3wjx9PgnKQsyQ EzNSfrrUCkgpXxpd47g DT4bB30QX2kMWXwVjP8 STOzxxZ8Xet1AAZeFXJ eiUBpJ175h2odg2azwg BcoQI8wVwxSJIedywbS fL8WGimWEEpifvmFKn4 JZkcVCKssZK2VKIfxAB cY8KwPVMeEW7muga8ZV E5WYnoRIZqTaC4MKEyv UDwQVHgkUydLVdzk389 JVS7JwAuSBWhcpHfoOb hdM5sLtTgKOTBCuGeIJ RysJbaF7LoUBRozX5df 3u3WCxrnfMqLVr5BYWj M0qpoknvvzJgm4IgiH6 bd1lbD4NbzTbeL31cy1 fhcUNvwBI9qDJiTJXpc rOyXJMfWOKcaHkeK7p3 aXNccGFyfQ== Gross Description (test f8eycHChTHRbqOCIWGe code = [id number]) wMVxhbnNpXHNwbHRwZ3 NmhxsqOFgoRP7zQK5rb PwfbJKtnQYjMS6GBQRl ZmYxXHBhcGVydzEyMjQ lCJKwoGYudEO7GOCcZQ 1hcmdsMTgwMFxtYXJnc qQ5VDFoiZVvS0HsIFWc SH8fyfodOXE6WMfitF3 tekNDSanmJk4svFZdfY tcZjFcZmNoYXJzZXQwX LGevPsoWMHiPUc5wN0P QueoF56xr3Z0Ddc5NWQ wVYCnQ8RfDJ2vAXHhzH TqR46QFpzsKOL5LJKYT thwTICfML1By0guCRBp jBBzUSI6MCnzyLYoRTT vYOYeKRf0STLhSXpnhN MnRX3edWkeBvdmcUaxy 2VjdCBcXGlkIDUxMDAy MYzkDKUsSN6FPdOvBPD 5DRTiTZJwADw7NBh9CQ 2ASvXiRRLfIKQ2UXF9I QMqMAb6MHjwWY1DYZUv DzHyCYP6PCWwUMWaSDG vKSi0ZLXjVZohNZAguS FsIFxcZnMgMTAgXFxmY fAnIUPkKLbtukY2QLPu YWluXGJcZnMyMCBBOlx mZSUvSWqaiDjydR6iSX ZvE12za4GYt3OlDW2TE Rn6hnNrsswnpR7pABKu cyXhMSqvkGRaB7lzHfh jSmCuPvTvLNXOz56psY PuxQMpWBLvo8YpYAl1a eRmW28lX4TsNWssLBLa hxHoWBYdyKnzF5j7lFY 6OZLzTNLxFFPlL51kBM Velw4gvq61kwFrveQpp VWwhVWaKmTil3K9PSMw s8A3SUUmQZXfbVGfgoi xIO32SMAkKYMeDY7fkH VkIHdpdGggcHJvYmFib VRttNyazmRoaDZ8LUAr GWikXDByhItiOCx9VRZ 6Bf4ciMEcGAObhsCIQO 3tXWsumx88ORR3g7mtl WVsZHtcKlxmbGRpbnN0 IEhZUEVSTElOSyBuYW1 lPUxJTktCRUdJTnwyMT WfGroksKGCLLU4WZiww HhrpZo9a6bdsJLdw2c2 SRvgXXA9zBkOb9tvmJI eYXmbEwocgZHawjY4BZ uWQHAPZUsEIbEyMB9vQ ThUJmoDPuK3RiHiABB4 CIqDB5XXqKD9Ski3LHf 8fXtcZmxkcnNsdCBcJz LWaX9yvEbduQ0zcPVzK 2hcZnMyMCANClxlcGlj OoMelCSuEtNjkcC3ASM cgBZgSWC9DI3hUJQegr rcLYPkRSKpOYE4ATram C88gKZqYYFhLILtrUGg fVxwbGFpbiANClxzbC0 dEtZpt8wkkGe5ORSGOe vbeQIdvxqonmX7LACyc 0lcfJhjh6ZgkFSsQF7o mJfvcX5hFoFpHnBDWi5 = Disclaimer (test code = t9akwZTlXNSjyHBpOeH 9844) aUSYxEGGud1zeHCIweK FuZzEwMzNcZnRuYmpcd VKmFMFuIeSbo6vmj985 bFOpl2uwZKAvLdN7wGL wYTVnnRQcE761FYVvIL het7mra2HuNTDdlMFby 1T1YBVIqoefvBj3wMex O55eb4O4PccwG9abZXQ jIALsU3SlRQ8kURRqZf s7PHK4VXK8GEEyYDBpP 5LcWY8mHRYqxHRqNXj4 k8umhKmkFFMgEAR8p8y lJGloiyThXT3ovq2cmK x4j0bzwbXnMMZsTGNsz MQMOYVfL1RyaQfjWc1q oUd4lCssYfiiMJP5Gnt 0QN7aau37ofp2uHpuLX XtmsaqNrO2PBdnFDAwt melJWm0FOdlAIKhcZD4 KBRuvUYhO9MeOJDbYO1 cain1KHQ2GKmkHPYyIv J4JXQdpUPyTNXhqIydJ Ywvp902EQW5PfGmFB4u W9Mxi8Z2cG3fqAEsROZ yiPCkNkOtHWKbrd6puY YqAXczs9HtDKI9dkL3g MQyoUStVLUsTV66Nimo q0HaPqbzKAM6URDkkmI zs9Maw9uoBvOsvuMxZ2 erT4DfUZZhDBPrRRLzZ fXdfhIcv1Vhd2NhsRBc xEi3f7syIXQqQSAinCy lk4zbJMU3WADcR5C0tN Alv3ykCQsgNPXocSL5c qK9LLXzpTIbB3DnzG4v KXSbAE8ocvh7p1apBUK 4JUmsGKSjJzR0udI1KN BcaGVhZGVyeTcyMFxmb 016DYE3ZhTqQYLes3Vd U2LyrHwdX49chFhcA92 xRNUdzWzbbF9whWhtsT 5cZjBcZnMyNFxxbFxwb UNcthuxPSowwnA7PHhn kjwzQYSvZPjrZ3ocMmH pOTSekOkgUJpuu1FlIA JxCUDzYtfwfsJ5SOFIo 23eGKYer6FcAOJmbD1n rMOoZUsgkiUabXU4DUe hdmUgYmVlbiBkZXZlbG 5yDWJnHN9kPTCfygYtz i2ppiSsKATvOWKxQ6Zk cmlzdGljcyBkZXRlcm1 wkkNcTMQ5YTLPHB2ZQX KgYZUjb81xRVYqoJppr I1bhGVzsnHtMCUsq7Au oD0kxHXJMRAtD4mwFP4 fLGpek2ZvdHQebXNreZ N0HOSca1HsCyEmolKbg QTdzREjA2AqsRcbF4mt KMOkCCWditRnyHXxx3Q hYJIksMH0qWAuJL5CDl JPa92aBQEhYFYXhlCaK XCwbWydrYI6niK1uM4b LiBJZiBhcHBsaWNhYmx rTLFbd753ai8flfZ6TZ OlXVZpnjtma0XdZIUtR IAaaI22PGVtQXElfc0h ewwzdUXkfoWoQ7Byffv 4sC9sGPNtKMgsVSVyWB ZzMjJcbGFuZzEwMzNca GljaFxmMVxkYmNoXGYx QPelV0xvLuTbYsYcEah wYXJ9 [facility] 2021-10-22 15:30:07 Test Item Value Reference Range Interpretation Comments Submitted Clinical History j6jyzZFbCQMio1vtQEO (test code = 79481) mbGFuZzEwMzNcZnRuYm pcdWMxIHtccnRmMVxzc 7VnZ8MwWjDcBSegzvSh XGRlZmxhbmcxMDMzXGZ 0bmJqXHVjMVxkZWZmMH ecMu2akHPwdLkzUgQsE UDdo2ajdvYRcsrzaDf9 n1seSWMwFwD6uTXnUCs kL1ikdtLjvCMsQMIdNA v5oS09TUQlbD9pzFWrI YktjjWzTcY4TYlaLOZb SzN5RPTapUNoOIKfU3v yZWQwXGdyZWVuMFxibH BdKZS8lKyov0X9jDIni GVldHtcZjBcZnMyMiBO z5PvZPa9yAoaE9XtTWY iKlH7pUTuZJSpHSloRB GpUVOuksP5tE51WGvyz qM9sROok3Ver82fi058 yG9dvHXfAMT6NRSuYDG pcBWmCJLcUPW7ECHkvH TaV0wqZRMuFR1jpmtaN YrdJWsjRVVrxYO6QYCh yDDmI0TyQBTsAUdfCMA yyqi5KdIfOx4yhSCfaV laHUgsx8khk3nrtWKmC vl6SDWiBuTvYgmjUMuh s6Hng2knHAZyxm3uRYN 0bXLmeUczd9F3qQEgXQ QwcTXmisNdBGJvOlI5D OocUN4zbr43ZYLqXDB8 ud2cpIBjeEwaifXgeSX nKJqyX8OgNJYwh242NC VyL9KuIJViu0C1jtNbC jVoMHDayBH1mxI5EZBs PBx1wLNuolK3zaTnxWV iE0lxfU6fGTWuZX0ojc ses7biYFliIAeaSIDbm UL2ruP9BGPbhDYlE5Jy cG5aFUThXXavOMPtiuy 2UiVpDb2otDZnjSfeOD xzYmtwYWdlXHBnbmNvb nRccGduZGVjXHBsYWlu XHBsYWluXGYwXGZzMjR jaMdefPenvA8rBvRzNn DnOXfnHY1iYAJiM0gky JKyRSWoNNOeK1cdKaJb iR4ksQqsJAbqsmImGLA 7ZCufi9vxmzgkuVUqmh A7bHIaEwYpJuJ2KQpag GFpblxmMVxmczIyXGxh mfkcLWDlFEsbY5reKxC lCBHygApbBUacp1BmIF YxXGZzMjJccGFyfX0= Diagnosis (test code = 34) c7ocaIBhOPEzhXJ4ZdN rXLFqz6zmp2FmeEVcpV BoODumlRAgcmYsgz93p PP8uG87ZR2hRTHhMjM5 GLGocmL6Nrg5QZRwOAT hsLPaU034k6jhx1xcyb LvlAP0gEtrUGRtvpuaS oC1WLiwCDPwfhjtTKr5 GIdnJHYiyQQ9QZUywDD eB4JvLPLaLA1nbpa0MM O4XCmoWXNnQdF5EQPav WAnRSQmqLwlLXhcx429 GNY0ShEmOICullZayRg cjI6oKlKgEFISAtPvUL QohUbaW0MvOIApnB2ba 3d3WOlltaQzGSf6SXOp V3ydhddcvqIfd8QgcD4 pd3xnE0NolSfsL37ny9 dxzPVrlGK4jOGyMAIzd pCnCMWwTKRofKhoR2s9 aXNccGFyfQ== Gross Description (test h0oykJWpVEEjmXNUARm code = [id number]) wMVxhbnNpXHNwbHRwZ3 NlxxkiMBcqPS1sDD1gj AeadVUgnKRiJC8KXBVm ZmYxXHBhcGVydzEyMjQ rIFXmwFEvfZZ4XQMpSU 1hcmdsMTgwMFxtYXJnc rD8BNDbtHRyB8BmHPZe IJ9etbgsRXS1OAkwpL6 kzqGRGvgrRm9syDTmjK tcZjFcZmNoYXJzZXQwX ICswGixALPjJWn9vF3X DdohK17jp4F5Umj3WXR gMLCkD6NaEU3pFAYspC AuC35MOtvzLKS9ONWTH qgkMRGnEX2Gx5vrPBVq pRGuROB0CYiweEHfPGM bLKKlDAz6SHCoPGhnoW CsWF5dxUonXrcnlDvtj 2VjdCBcXGlkIDUxMDAy SCovNSGzMT4MOrQgVVO 9JHLrIEVxOSl3DKx2HS 5QSoLmCXHbESQ3LVS9K JRfWRa5NXetEV4LSZRg LlWbTSI0KEPrPEKkGWM yHDr7ROZeUFifLJIdrT FsIFxcZnMgMTAgXFxmY lBtMYFaIWgszoZ0QLId YWluXGJcZnMyMCBBOlx mCFLaCDfihVekxX0rKV CtK02fw8POa7NrVQ3GL As3klGjjyhdwT4qOYAq edUfCQgnyMRoQ5exAjy bRwOoPhGzYRHVs23gwP NixQFxQIAaa1YdVJn2b dIrI28mG7HjHZldIMFz mrUfTIGcxTwyT0l7nBM 9HSSgRXXhZLDaV97rUD Ahsw8pmn00xyKfiyLhl AEfkJExOrBeg5I0DFNc g5S7RTAkIDXyjVFaxvm cQH17PSJnBMWlMD5qiA VkIHdpdGggcHJvYmFib KFpfKfxbpLzkBO5IXBj WMvnISDtlTjvPMg4EQN 4Tu3ohSDwVJXfbbVVSW 8fMUxbsk44OOD0a4qau WVsZHtcKlxmbGRpbnN0 IEhZUEVSTElOSyBuYW1 lPUxJTktCRUdJTnwyMT EkPukevXFLSFL7MLdbp ZpjvJz4z2iplGNwz1k8 MTuxGHU2sVhVw3palIN gDForAbdgiRJsslQ4AV cOZEUBTTaIPyBhWF6uU LwTPkjISeG8ZpBpVDF6 OHvLR3XBuXQ0Bal2FEg 8fXtcZmxkcnNsdCBcJz CTdX6jvRwswS7fcTQrG 2hcZnMyMCANClxlcGlj VhAttQWhIeUeynK4HBD qtQCmLGZ9VU5eCEXdkp caIFWnGGAjEHQ9HFczu H24sPBrKIBkDXVttTEm fVxwbGFpbiANClxzbC0 lHpIct7iiwQv2RVBUDi sbuYKbwynfyjD2UHRyk 6dyxQldz5AvcUNmSZ8y nZepaK2bXaZuWyIAMz1 = Disclaimer (test code = y4grzXKuOPTvrLIuMmC 9844) yNKEsTFZpl5gwWUIedK FuZzEwMzNcZnRuYmpcd ZObJMEePlZcv1qkl255 dKYwj8jbQQCiDgV7lIO cHQGbsJOuW370RIIhGF xvs0llg6MvLWGxgGCcx 1Q6ZXBGypkjcFr0aRmq B94ai7F0KdbkW6qnPUO xXVJdN6EcQU8zDIIiUd r9FOI7PPX3YXLrYJRkJ 8DrYG8xVYZdrYHoXHe7 g2minYdrCYPrHMW3t9t vHXgsspVwBD6mcn3bjL w5a9zgmtJpJOXzDTDlx PNTPBZlG3MynSyaSc7w uGe2jBttRwscMCZ4Fep 1YB7cel31lqn1yRisPR YfptvjEtR4MVpbFIDvc nwxGBu9QXbqCLEceVN5 GOBoqOWeG4GtHUYfJV4 gtri9FXU7QRvnDKDdLi V6QVEzuSPhTDXhlWenL Ggve465EHM4HuKaZD5a N7Zdd1U7rK9inDNtFTF kmAOyEpBuAEUpgt5keD NoKBjqd1OyXBM6atR2v KMxbVQeKPRuNF80Aouu e1OqSxtfXAM3MCLcrbB za5Git6bjJaXbvpAuR6 bxE9BbABAfDQRlKLBdK eQdguBls5Isn8MhnUUc wUn4q8llZLKiAUKayZm db7upDDE9CYTlL3J7bL Dfr4ipXBcyPOHdoDX7t nO3DHYqwJWlQ0MchL4t MDPgIO3byvp2v5ljTKO 2YLzeBEJcWfI4udT9NN BcaGVhZGVyeTcyMFxmb 702YXX6XcFmTWIqy3Oy I2InkKbbZ61leJijB83 iIIMsrJuhoO5dbCvfwM 5cZjBcZnMyNFxxbFxwb YHqgxbwASvjkuM5UWkr ktipZZWyJYthR2yfZrU oXBGnuLztSHxaf7KyHQ AmRJKyKqijbyC2YSOUk 00tTKSgd3AnSFSkjV1f bIApYRmoypQebPO6LOc hdmUgYmVlbiBkZXZlbG 7eKHCrPW7lQMRneoOcu u6empHkIFHaAZUwW9Vi cmlzdGljcyBkZXRlcm1 wdjLvXUG4ZHTGSP1TMX JsHRKhp41qIGCymCmys C7qmETwolEuYAHcz3Cf nH0cnITOAYFeS3ciDA2 sLZlnu2UxiEPoaBLtqZ B6SAYye3CmYzElsaQkj QRbzEOdG9ZlpJkzK5bg VVDpTTDflxVbiFOeg4I sANMqaSE6yGFaJD4TFo GBp14cAYCuFGXQorSiO IWrfIsdbQE6zjC6iN9f LiBJZiBhcHBsaWNhYmx cRKZfd285xz3omhW4UX MbPWMfczoed8BwIBAcN CDhaG98DDTtKHDzog9h ivcgdCKwheOqL9Rxokk 4dJ3jBXUeSQntFECsOB ZzMjJcbGFuZzEwMzNca GljaFxmMVxkYmNoXGYx LOqtP4zhHrUjUuSyKwk wYXJ9 [facility] [place]omoFungyasir, [id number] 18:04:34 Test Item Value Reference Interpretation Comments [...] for thesemodifi cations were determined by [employer].If samp le result is greater than 50 0 pg/mL, physician may o rder atiter of the sample. Please contact [employer] if you wouldlike t o order a retest of this sample to obtain an actua l value.Samples a re held for 1 week after in itial testing date. Perf ormed At:[facility] [id number] [address] [place] [id number] Director: Andi Taylor Ph.D ., BCLD (ABB)CLIA#: [id number] e: [Automated message] The sy stem which generated this result transmitted ref erence range: <=80. Th e reference range was not u sed to interpret this result as normal/abnormal . Lab Interpretation Abnormal (test code = 29028-2) [facility]omo[facility] Price2022-04-21 18:04:34 Test Item Value Reference Interpretation [...] for thesemodifi cations were determined by [employer].If samp le result is greater than 50 0 pg/mL, physician may o rder atiter of the sample. Please contact [employer] if you wouldlike t o order a retest of this sample to obtain an actua l value.Samples a re held for 1 week after in itial testing date. Perf ormed At:[facility] [id number] [address] [id number] Director: Andi Taylor Ph.D ., YUSEF (ABB)CLIA#: [id number] e: Lab Interpretation Abnormal (test code = 46522-8) [facility] [place]Dee, [id number] 18:04:34 Test Item Value Reference Interpretation Comments [...] for thesemodifi cations were determined by [employer].If samp le result is greater than 50 0 pg/mL, physician may o rder atiter of the sample. Please contact [employer] if you wouldlike t o order a retest of this sample to obtain an actua l value.Samples a re held for 1 week after in itial testing date. Perf ormed At:[facility] osok[address], [place] [address]Zpqtbroolw Director: Andi Taylor Ph.D ., BCLD (ABB)CLIA#: [id number] e: Lab Interpretation Abnormal (test code = 85015-6) [facility] [place]Fung[facility]ell, [id number] 18:04:34 Test Item Value Reference Interpretation Comments [...] for thesemodifi cations were determined by [employer].If samp le result is greater than 50 0 pg/mL, physician may o rder atiter of the sample. Please contact [employer] if you wouldlike t o order a retest of this sample to obtain an actua l value.Samples a re held for 1 week after in itial testing date. Perf ormed At:[facility] [id number] [address] [address]Rfvcmewhlk Director: Andi Taylor Ph.D ., BCLD (ABB)CLIA#: [id number] e: Lab Interpretation Abnormal (test code = 94626-8) [facility] [place]omoFungitedavid, [id number] 18:04:34 Test Item Value Reference Interpretation Comments [...] for thesemodifi cations were determined by [employer].If samp le result is greater than 50 0 pg/mL, physician may o rder atiter of the sample. Please contact [employer] if you wouldlike t o order a retest of this sample to obtain an actua l value.Samples a re held for 1 week after in itial testing date. Perf ormed At:[facility] [id number] [address] [place] [address]Lwmbhyhuij Director: Andi Taylor Ph.D ., BCLD (ABB)CLIA#: [id number] e: Lab Interpretation Abnormal (test code = 09254-9) [facility] Price2022-04-21 18:04:34 Test Item Value Reference Interpretation [...] rder atiter of the sample. Please contact [employer] if you wouldlike t o order a retest of this sample to obtain an actua l value.Samples a re held for 1 week after in itial testing date. Perf ormed At:[facility] [id number] [address] [place] [address]Qmfiaxqmre Director: Andi Taylor Ph.D ., BCLD (ABB)CLIA#: [id number] e: Lab Interpretation Abnormal (test code = 02873-4) [facility] [place]ung[facility]ell, [id number] 18:04:34 Test Item Value Reference Interpretation Comments [...] for thesemodifi cations were determined by [employer].If samp le result is greater than 50 0 pg/mL, physician may o rder atiter of the sample. Please contact [employer] if you wouldlike t o order a retest of this sample to obtain an actua l value.Samples a re held for 1 week after in itial testing date. Perf ormed At:[facility] [id number] [address] [place] [address]Cdmqzkbrai Director: Andi Taylor Ph.D ., BCLD (ABB)CLIA#: [id number] e: Lab Interpretation Abnormal (test code = 36678-4) [facility] Review 2021-10-18 14:39:17RMP PRReviewed and Electronically signed by Pathologist:Mary Beth Parikh MD, PhD #[id number] [facility] Path [id number] 14:39:17RMP PRReviewed and Electronically signed by Pathologist:Mary Beth Parikh MD, PhD #[id number] [facility] Path Hlxcvx9729-15-01 14:39:17RMP PRReviewed and Electronically signed by Pathologist:Mary Beth Parikh MD, PhD #[id number] [facility] [id number] 14:39:17RMP PRReviewed and Electronically signed by Pathologist:Mary Beth Parikh MD, PhD #[id number] [facility] Review 2021-10-18 14:39:17RMP PRReviewed and Electronically signed by Pathologist:Mary Beth Parikh MD, PhD #[id number] [facility] Path [id number] 14:39:17RMP PRReviewed and Electronically signed by Pathologist:Mary Beth Parikh MD, PhD #[id number] [facility] Path [id number] 14:39:17RMP PRReviewed and Electronically signed by Pathologist:Mary Beth Parikh MD, PhD #[id number] [facility], MAT MAN [id number] 14:29:47 Test Item Value Reference Range Interpretation [...] 6203) Lab Interpretation (test code = Abnormal 21496-5) [facility] Swab 2021-10-18 14:29:47 Test Item Value Reference [...] 6203) Lab Interpretation (test code = Abnormal 33485-0) [facility] Swab 2021-10-18 14:29:47 Test Item Value Reference [...] 6203) Lab Interpretation (test code = Abnormal 59259-2) [facility], [facility] Swab 2021-10-18 14:29:47 Test Item Value Reference [...] 6203) Lab Interpretation (test code = Abnormal 67331-2) [facility] Swab 2021-10-18 14:29:47 Test Item Value Reference [...] 6203) Lab Interpretation (test code = Abnormal 68912-4) [facility] Swab 2021-10-18 14:29:47 Test Item Value Reference [...] 6203) Lab Interpretation (test code = Abnormal 46814-1) [facility], MAT [facility] Swab 2021-10-18 14:29:47 Test Item Value Reference [...] 6203) Lab Interpretation (test code = Abnormal 28949-5) [facility] Glucose [id number] 11:58:24 Test Item Value Reference Interpretation Comments Range POC Glucose (test 196 mg/dL 70-99 H RN Notifie dCapillary code = 49303-5) blood sample s, e.g. obtained by fingerstick, [...] Capillary code = 9554) Performing Lab (test [facility] code = 17191) [facility] MD Marianela gustafson Clinical Lab, [address] [place] [address] [phone]; Manager Trust: Aletha Arciniega MD Lab Interpretation Abnormal (test code = 87355-4) [facility] Glucose [id number] 11:58:24 Test Item Value Reference Interpretation Comments Range POC Glucose (test 196 mg/dL 70-99 H RN Notifie dCapillary code = 01988-8) blood sample s, e.g. obtained by fingerstick, [...] Capillary code = 9554) Performing Lab (test [facility] code = 47109) [facility] Marianela gustafson Clinical Lab, [address] [place] [address]; Manager Trust: Aletha Arciniega MD Lab Interpretation Abnormal (test code = 05794-5) [facility] Glucose Dirvtm6726-22-37 11:58:24 Test Item Value Reference Interpretation Comments Range POC Glucose (test 196 mg/dL 70-99 H RN Notifie dCapillary code = 32625-7) blood sample s, e.g. obtained by fingerstick, [...] Capillary code = 9554) Performing Lab (test [facility] code = 25807) [facility] MD Marianela gustafson Clinical Lab, [address] [place] [address] 30; Manager Trust: Aletha Arciniega MD Lab Interpretation Abnormal (test code = 82961-7) [facility] Glucose Emsrsd3038-25-33 11:58:24 Test Item Value Reference Interpretation Comments Range POC Glucose (test 196 mg/dL 70-99 H RN Notifie dCapillary code = 78106-5) blood sample s, e.g. obtained by fingerstick, [...] Capillary code = 9554) Performing Lab (test [facility] code = 12503) [facility] MD Marianela gustafson Clinical Lab, [address] [place] [address]; Manager Trust: Aletha Arciniega MD Lab Interpretation Abnormal (test code = 18718-0) [facility] Glucose Grighu3661-53-88 11:58:24 Test Item Value Reference Interpretation Comments Range POC Glucose (test 196 mg/dL 70-99 H RN Notifie dCapillary code = 57396-6) blood sample s, e.g. obtained by fingerstick, [...] Capillary code = 9554) Performing Lab (test [facility] code = 38277) [facility] MD Marianela gustafson Clinical Lab, [address] [place] [address]; Manager Trust: Aletha Arciniega MD Lab Interpretation Abnormal (test code = 58950-3) [facility] Glucose [id number] 11:58:24 Test Item Value Reference Interpretation Comments Range POC Glucose (test 196 mg/dL 70-99 H RN Notifie dCapillary code = 88410-2) blood sample s, e.g. obtained by fingerstick, [...] Capillary code = 9554) Performing Lab (test [facility] code = 94984) [facility] MD Marianela gustafson Clinical Lab, [address] [place] [address] 30; Manager Trust: Aletha Arciniega MD Lab Interpretation Abnormal (test code = 50254-0) [facility] Glucose [id number] 11:58:24 Test Item Value Reference Interpretation Comments Range POC Glucose (test 196 mg/dL 70-99 H RN Notifie dCapillary code = 02457-4) blood sample s, e.g. obtained by fingerstick, [...] Capillary code = 9554) Performing Lab (test [facility] code = 66341) [facility] MD Marianela gustafson Clinical Lab, [address] [place] [address] 30; Manager Trust: Aletha Arciniega MD Lab Interpretation Abnormal (test code = 23310-8) [facility] Screening Mkpsmma1703-56-03 18:35:38 Test Item Value Reference Range Interpretation Comments Final Report (test No Methicillin resistant code = 8488) Staphylococcus aureus isolated. Path Review (test The results have been code = 8492) reviewed and electronically signed by Pathologist:Mary Beth Parikh MD, PhD #[id number] [facility] Screening Jnhntfn5501-40-53 18:35:38 Test Item Value Reference Range Interpretation Comments Final Report (test No Methicillin resistant code = 8488) Staphylococcus aureus isolated. Path Review (test The results have been code = 8492) reviewed and electronically signed by Pathologist:Mary Beth Parikh MD, PhD #[id number] [facility] Zdprbdt8747-01-79 18:35:38 Test Item Value Reference Range Interpretation Comments Final Report (test No Methicillin resistant code = 8488) Staphylococcus aureus isolated. Path Review (test The results have been code = 8492) reviewed and electronically signed by Pathologist:Mary Beth Parikh MD, PhD #[id number] [facility] Screening Tplucpe8326-86-72 18:35:38 Test Item Value Reference Range Interpretation Comments Final Report (test No Methicillin resistant code = 8488) Staphylococcus aureus isolated. Path Review (test The results have been code = 8492) reviewed and electronically signed by Pathologist:Mary Beth Parikh MD, PhD #[id number] [facility] Screening Aepsouk2670-77-21 18:35:38 Test Item Value Reference Range Interpretation Comments Final Report (test No Methicillin resistant code = 8488) Staphylococcus aureus isolated. Path Review (test The results have been code = 8492) reviewed and electronically signed by Pathologist:Mary Beth Parikh MD, PhD #[id number] [facility] Screening Jjqnxjq3201-26-70 18:35:38 Test Item Value Reference Range Interpretation Comments Final Report (test No Methicillin resistant code = 8488) Staphylococcus aureus isolated. Path Review (test The results have been code = 8492) reviewed and electronically signed by Pathologist:Mary Beth Parikh MD, PhD #[id number] [facility] Screening Mprwzwz3488-69-78 18:35:38 Test Item Value Reference Range Interpretation Comments Final Report (test No Methicillin resistant code = 8488) Staphylococcus aureus isolated. Path Review (test The results have been code = 8492) reviewed and electronically signed by Pathologist:Mary Beth Parikh MD, PhD #[id number] [facility] Vancomycin trough on [...] is code = not availablefo r this 35213-7) sample. The donna e reported is the samplecollectio n date. Vanco Tr Dose 10/17/2021 Level, date, a nd time Date (test of previous dos e is code = not availablefo r this 89748-6) sample. The donna e reported is the samplecollectio n date. PAIGE (test Vancomycin trough on code = PAIGE) 10/17/21@10:30AM. Nurse please coordinate with lab to draw trough approximately 11 - 11.5hours after 10/16/21 evening vanco dose. Hold vancomycin doses if trough is greater than 20 and notify MD. Thanks! [facility] Vancomycin trough on 10/17/21@10:30AM. Nurse please [...] is code = not availablefo r this 97107-8) sample. The donna e reported is the samplecollectio n date. Vanco Tr Dose 10/17/2021 Level, date, a nd time Date (test of previous dos e is code = not availablefo r this 50456-7) sample. The donna e reported is the samplecollectio n date. PAIGE (test Vancomycin trough on code = PAIGE) 10/17/21@10:30AM. Nurse please coordinate with lab to draw trough approximately 11 - 11.5hours after 10/16/21 evening vanco dose. Hold vancomycin doses if trough is greater than 20 and notify MD. Thanks! [facility] Vancomycin trough on [...] is code = not availablefo r this 16208-8) sample. The donna e reported is the samplecollectio n date. Vanco Tr Dose 10/17/2021 Level, date, a nd time Date (test of previous dos e is code = not availablefo r this 03958-1) sample. The donna e reported is the samplecollectio n date. PAIGE (test Vancomycin trough on code = PAIGE) 10/17/21@10:30AM. Nurse please coordinate with lab to draw trough approximately 11 - 11.5hours after 10/16/21 evening vanco dose. Hold vancomycin doses if trough is greater than 20 and notify MD. Thanks! [facility] Vancomycin trough on [...] is code = not availablefo r this 15998-2) sample. The donna e reported is the samplecollectio n date. Vanco Tr Dose 10/17/2021 Level, date, a nd time Date (test of previous dos e is code = not availablefo r this 75858-6) sample. The donna e reported is the samplecollectio n date. PAIGE (test Vancomycin trough on code = PAIGE) 10/17/21@10:30AM. Nurse please coordinate with lab to draw trough approximately 11 - 11.5hours after 10/16/21 evening vanco dose. Hold vancomycin doses if trough is greater than 20 and notify MD. Thanks! [facility] Vancomycin trough on 10/17/21@10:30AM. Nurse please coordinate with lab to draw trough approximately 11 - 11.5hours after 10/16/21 evening vanco dose. Hold vancomycin doses if trough isgreater than 20 and notify MD. Thanks!2021-10-17 18:05:08 Test Item Value Reference Range Interpretation Comments Vanco Trough 6.0 See_Comment Toxic Trough Le lawrence: (test code = >20 mcg/mL [Aut omated 4099-3) message] The sy stem which generated this result transmit lakhwinder reference range : 5.0 - 20.0 mcg/mL. Th e reference range was not used to int erpret this result as normal/abnormal . Vanco Tr Dose See note Level, date, a nd time Time (test of previous dos e is code = not availablefo r this 32830-0) sample. The donna e reported is the samplecollectio n date. Vanco Tr Dose 10/17/2021 Level, date, a nd time Date (test of previous dos e is code = not availablefo r this 18227-3) sample. The donna e reported is the samplecollectio n date. PAIGE (test Vancomycin trough on code = PAIGE) 10/17/21@10:30AM. Nurse please coordinate with lab to draw trough approximately 11 - 11.5hours after 10/16/21 evening vanco dose. Hold vancomycin doses if trough is greater than 20 and notify MD. Thanks! [facility] Vancomycin trough on [...] is code = not availablefo r this 40001-0) sample. The donna e reported is the samplecollectio n date. Vanco Tr Dose 10/17/2021 Level, date, a nd time Date (test of previous dos e is code = not availablefo r this 58856-1) sample. The donna e reported is the samplecollectio n date. PAIGE (test Vancomycin trough on code = PAIGE) 10/17/21@10:30AM. Nurse please coordinate with lab to draw trough approximately 11 - 11.5hours after 10/16/21 evening vanco dose. Hold vancomycin doses if trough is greater than 20 and notify MD. Thanks! [facility] [place] Vancomycin trough on 10/17/21@10:30AM. Nurse please [...] is code = not availablefo r this 75207-5) sample. The donna e reported is the samplecollectio n date. Vanco Tr Dose 10/17/2021 Level, date, a nd time Date (test of previous dos e is code = not availablefo r this 41356-1) sample. The donna e reported is the samplecollectio n date. PAIGE (test Vancomycin trough on code = PAIGE) 10/17/21@10:30AM. Nurse please coordinate with lab to draw trough approximately 11 - 11.5hours after 10/16/21 evening vanco dose. Hold vancomycin doses if trough is greater than 20 and notify MD. Thanks! [facility] CenterLegionella Urine Antigen Path [id number] 15:56:29Legionella Urine Antigen Path ReviewReviewed and Electronically signed by Pathologist:Mary Beth Charles, PhD #[id number] [facility]Un[facility] CenterLegionella Urine Antigen Path Uzhqti8926-09-35 15:56:29Legionella Urine Antigen Path ReviewReviewed and Electronically signed by Pathologist:Mary Beth Charles, PhD #[id number] [facility] Legionella Urine Antigen Path Vnsufg7133-05-46 15:56:29Legionella Urine Antigen Path ReviewReviewed and Electronically signed by Pathologist:Mary Beth Charles, PhD #[id number] [facility]Un[facility] CenterLegionella Urine Antigen Path [id number] 15:56:29[place] Urine Antigen Path ReviewReviewed and Electronically signed by Pathologist:Mary Beth Charles, PhD #[id number] [facility]Un[facility] CenterLegionella Urine Antigen Path Nubgrm3018-17-26 15:56:29[place] Urine Antigen Path ReviewReviewed and Electronically signed by Pathologist:Mary Beth Charles, PhD #[id number] [facility]Un[facility] CenterLegionella Urine Antigen Path [id number] 15:56:29[place] Urine Antigen Path ReviewReviewed and Electronically signed by Pathologist:Mary Beth Charles, PhD #[id number] [facility] Antigen [facility] Wdqaie7997-40-55 15:56:29[place] Urine Antigen Path ReviewReviewed and Electronically signed by Pathologist:Mary Beth Charles, PhD #[id number] [facility]Un[facility] CenterProcalcitonin 2021-10-17 11:00:32Procalcitonin<0.04<=0.08 ng/mLUT [facility]Un[facility] CenterProcalcitonin2022-04-20 11:00:32Procalcitonin<0.04<=0.08 ng/mLUT [facility]20[facility]-20 11:00:32 Procalcitonin<0.04<=0.08 ng/mLUT [facility]Un[facility] CenterProcalcitonin2022-04-20 11:00:32 Procalcitonin<0.04<=0.08 ng/mLUT [facility]Un[facility] CenterProcalcitonin2022-04-20 11:00:32 Test Item Value Reference Range Interpretation Comments Procalcitonin (test code <0.04 See_Comment Pro calcitonin > 2.00 = 70926-4) ng/mL: Procalci tonin levels above 2. 00 [...] d ilution as it exceeds t he olive pitter's recommended ching it. Caution should be exercised when interpreting nunez ch values and done in [place] [facility] with clinical c ontext. [Automated mess age] The system which ge nerated this result tra nsmitted reference range : <=0.08 ng/mL. The refe rence range was not u sed to interpret this result as normal/abnormal . [facility] CenterProcalcitonin2022-04-20 11:00:32 Test Item Value Reference Range Interpretation Comments Procalcitonin (test code <0.04 See_Comment Pro calcitonin > 2.00 = 46406-1) ng/mL: Procalci tonin levels above 2. 00 [...] d ilution as it exceeds t he olive pitter's recommended ching it. Caution should be exercised when interpreting nunez ch values and done in [place] [facility] department with clinical c ontext. [Automated mess age] The system which ge nerated this result tra nsmitted reference range : <=0.08 ng/mL. The refe rence range was not u sed to interpret this result as normal/abnormal . [facility] CenterProcalcitonin2022-04-20 11:00:32 Test Item Value Reference Range Interpretation Comments Procalcitonin (test code <0.04 See_Comment Pro calcitonin > 2.00 = 81521-1) ng/mL: Procalci tonin levels above 2. 00 [...] d ilution as it exceeds t he olive pitter's recommended ching it. Caution should be exercised when interpreting nunez ch values and done in [facility] junction with clinical c ontext. [Automated mess age] The system which ge nerated this result tra nsmitted reference range : <=0.08 ng/mL. The refe rence range was not u sed to interpret this result as normal/abnormal . [facility] CenterLegionella Urine [id number] 19:49:58 Test Item Value Reference Range Interpretation Comments Legionella Urine Antigen Negative Interpretation (test code = 5748700) [facility] CenterLeg[facility] Urine Pvvewyi0105-28-05 19:49:58 Test Item Value Reference Range Interpretation Comments Legionella Urine Antigen Negative Interpretation (test code = 9333436) [facility] CenterLeg[facility] Urine Ztezjcw1793-31-31 19:49:58 Test Item Value Reference Range Interpretation Comments Legionella Urine Antigen Negative Interpretation (test code = 2359838) [facility] CenterLeg[facility] Urine Vrnrbzp7739-92-91 19:49:58 Test Item Value Reference Range Interpretation Comments Legionella Urine Antigen Negative Interpretation (test code = 3701140) [facility] CenterLeg[facility] Urine Nhutdfj1440-29-35 19:49:58 Test Item Value Reference Range Interpretation Comments Legionella Urine Antigen Negative Interpretation (test code = 2058641) [facility] CenterLegionella Urine Xvuupox7755-13-30 19:49:58 Test Item Value Reference Range Interpretation Comments Legionella Urine Antigen Negative Interpretation (test code = 2402845) [facility] CenterLeg[facility] Urine Pjyovoq3356-74-02 19:49:58 Test Item Value Reference Range Interpretation Comments Legionella Urine Antigen Negative Interpretation (test code = 8825755) [facility] Yznnhy6438-28-46 18:06:35Streptococcal Urine Antigen Path ReviewReviewed and Electronically signed by Pathologist:Mary Beth Parikh MD, PhD #[id number] [facility]UnR[facility] Hospitaltreptococcal Urine Antigen Path Dochuj8270-39-76 18:06:35Streptococcal Urine Antigen Path ReviewReviewed and Electronically signed by Pathologist:Mary Beth Parikh MD, PhD #[id number] [facility] Streptococcal Urine Antigen Path Vsledr7979-10-44 18:06:35Streptococcal Urine Antigen Path ReviewReviewed and Electronically signed by Pathologist:Mary Beth Parikh MD, PhD #[id number] [facility]Un[facility] Hospitaltreptococcal Urine Antigen Path [id number] 18:06:35 Streptococcal Urine Antigen Path ReviewReviewed and Electronically signed by Pathologist:Mary Beth Parikh MD, PhD #[id number] [facility]Un[facility] Hospitaltreptococcal Urine Antigen Path Review 2021-10-16 18:06:35Streptococcal Urine Antigen Path ReviewReviewed and Electronically signed by Pathologist:Mary Beth Parikh MD, PhD #[id number] [facility]Un[facility] Hospitaltreptococcal Urine Antigen Path [id number] 18:06:35Streptococcal Urine Antigen Path ReviewReviewed and Electronically signed by Pathologist:Mary Beth Parikh MD, PhD #[id number] [facility] Streptococcal Urine Antigen Path [id number] 18:06:35Streptococcal Urine Antigen Path ReviewReviewed and Electronically signed by Pathologist:Mary Beth Parikh MD, PhD #[id number] [facility]ITALUn[facility] Hospitaltreptococcus pneumoniae Urine Wohdran0978-42-37 16:43:46 Test Item Value Reference Range Interpretation Comments Streptococcal Urine Antigen Negative Negative Interpretation (test code = 47461846) [facility]pt[facility] Urine Wexcydr9779-00-09 16:43:46 Test Item Value Reference Range Interpretation Comments Streptococcal Urine Antigen Negative Negative Interpretation (test code = 38705441) [facility]trept[facility] pneumoniae Urine Jqpqntd0518-62-02 16:43:46 Test Item Value Reference Range Interpretation Comments Streptococcal Urine Antigen Negative Negative Interpretation (test code = 30940939) [facility]treptococcus pneumoniae Urine Oxyepua0397-72-66 16:43:46 Test Item Value Reference Range Interpretation Comments Streptococcal Urine Antigen Negative Negative Interpretation (test code = 82551627) [facility]treptococcus pneumoniae Urine Yqzbbrd3835-25-28 16:43:46 Test Item Value Reference Range Interpretation Comments Streptococcal Urine Antigen Negative Negative Interpretation (test code = 90154124) [facility]treptococcus pneumoniae Urine Nbcldjv3128-09-81 16:43:46 Test Item Value Reference Range Interpretation Comments Streptococcal Urine Antigen Negative Negative Interpretation (test code = 62747269) [facility]treptococcus pneumoniae Urine [id number] 16:43:46 Test Item Value Reference Range Interpretation Comments Streptococcal Urine Antigen Negative Negative Interpretation (test code = 35522335) [facility] CenterTrop[facility] ([facility])2021-10-15 18:48:52 Test Item Value Reference Range Interpretation Comments Troponin T (test code = 23 ng/L See_Comment H < 19 ng/L Suggest 33375-4) retest at 3 to 6 hours later [...] res ults. [Automated mess age] The system [employer] generated this result transmitted ref erence range: <=18. Th e reference range was not used to int erpret this result as normal/abnormal . Lab Interpretation Abnormal (test code = 77753-0) [facility] CenterT[facility] ([facility])2021-10-15 18:48:52 Test Item Value Reference Range Interpretation Comments Troponin T (test code = 23 ng/L <=18 H < 19 ng/L Suggest 56858-0) retest at 3 to 6 hours later [...] ults. Lab Interpretation Abnormal (test code = 79050-5) [facility]2021-10-15 18:48:52 Test Item Value Reference Range Interpretation Comments Troponin T (test code = 23 ng/L <=18 H < 19 ng/L Suggest 31216-4) retest at 3 to 6 hours later [...] ults. Lab Interpretation Abnormal (test code = 79447-1) [facility]2021-10-15 18:48:52 Test Item Value Reference Range Interpretation Comments Troponin T (test code = 23 ng/L <=18 H < 19 ng/L Suggest 91428-8) retest at 3 to 6 hours later [...] ults. Lab Interpretation Abnormal (test code = 57531-3) [facility]2021-10-15 18:48:52 Test Item Value Reference Range Interpretation Comments Troponin T (test code = 23 ng/L See_Comment H < 19 ng/L Suggest 51273-0) retest at 3 to 6 hours later [...] res ults. [Automated mess age] The system [employer] generated this result transmitted ref erence range: <=18. Th e reference range was not used to int erpret this result as normal/abnormal . Lab Interpretation Abnormal (test code = 53488-0) [facility]2021-10-15 18:48:52 Test Item Value Reference Range Interpretation Comments Troponin T (test code = 23 ng/L See_Comment H < 19 ng/L Suggest 98518-7) retest at 3 to 6 hours later [...] res ults. [Automated mess age] The system [employer] generated this result transmitted ref erence range: <=18. Th e reference range was not used to int erpret this result as normal/abnormal . Lab Interpretation Abnormal (test code = 65196-6) [facility]2021-10-15 18:48:52 Test Item Value Reference Range Interpretation Comments Troponin T (test code = 23 ng/L See_Comment H < 19 ng/L Suggest 54718-7) retest at 3 to 6 hours later [...] res ults. [Automated mess age] The system [employer] generated this result transmitted ref erence range: <=18. Th e reference range was not used to int erpret this result as normal/abnormal . Lab Interpretation Abnormal (test code = 28074-9) [facility] CenterLDH2022-04-[facility] 16:36:02 Test Item Value Reference Range Interpretation Comments LDH (test code = 247 U/L 135-225 H Results gre ater than 29173-5) 1651 U/L may no t be reliable due to matrix effect w ith extended diluti on as it exceeds the olive pitter's recommended ching it. Caution should be exercised when interpreting nunez ch values and done in conjunction [facility] clinical contex t. Lab Interpretation (test Abnormal code = 84719-5) [facility] CenterLDH20[facility] 16:36:02 Test Item Value Reference Range Interpretation Comments LDH (test code = 247 U/L 135-225 H Results gre ater than 01310-2) 1651 U/L may no t be reliable due to matrix effect w ith extended diluti on as it exceeds the olive pitter's recommended ching it. Caution should be exercised when interpreting nunez ch values and done in conjunction [facility] clinical contex t. Lab Interpretation (test Abnormal code = 35634-6) [facility] CenterLDH[facility] 16:36:02 Test Item Value Reference Range Interpretation Comments LDH (test code = 247 U/L 135-225 H Results gre ater than 97546-7) 1651 U/L may no t be reliable due to matrix effect w ith extended diluti on as it exceeds the olive pitter's recommended ching it. Caution should be exercised when interpreting nunez ch values and done in conjunction [facility] clinical [employer] t. Lab Interpretation (test Abnormal code = 54338-7) [facility] CenterLDH[facility] 16:36:02 Test Item Value Reference Range Interpretation Comments LDH (test code = 247 U/L 135-225 H Results gre ater than 77657-3) 1651 U/L may no t be reliable due to matrix effect w ith extended diluti on as it exceeds the olive pitter's recommended ching it. Caution should be exercised when interpreting nunez ch values and done in conjunction [facility] clinical [employer] t. Lab Interpretation (test Abnormal code = 27169-5) [facility] CenterLDH[facility] 16:36:02 Test Item Value Reference Range Interpretation Comments LDH (test code = 247 U/L 135-225 H Results gre ater than 94140-1) 1651 U/L may no t be reliable due to matrix effect w ith extended diluti on as it exceeds the olive pitter's recommended ching it. Caution should be exercised when interpreting nunez ch values and done in conjunction [facility] clinical contex t. Lab Interpretation (test Abnormal code = 61711-3) [facility] CenterLDH20[facility] 16:36:02 Test Item Value Reference Range Interpretation Comments LDH (test code = 247 U/L 135-225 H Results gre ater than 01461-5) 1651 U/L may no t be reliable due to matrix effect w ith extended diluti on as it exceeds the olive pitter's recommended ching it. Caution should be exercised when interpreting nunez ch values and done in conjunction [facility] h clinical contex t. Lab Interpretation (test Abnormal code = 02938-6) [facility] Test Item Value Reference Range Interpretation Comments LDH (test code = 247 U/L 135-225 H Results gre ater than 82299-9) 1651 U/L may no t be reliable due to matrix effect w ith extended diluti on as it exceeds the olive pitter's recommended ching it. Caution should be exercised when interpreting nunez ch values and done in conjunction [facility] clinical contex t. Lab Interpretation (test Abnormal code = 17846-1) [facility] 16:31:03 Test Item Value Reference Range Interpretation Comments NT ProBNP (test code = 137 pg/mL See_Comment H [Aut omated message] 01234-8) The system [employer] generated this result transmit lakhwinder reference range : <=125. The refe rence range was not u sed to interpret th is result as normal/abnormal . Lab Interpretation (test Abnormal code = 76244-5) [facility]21[facility]15 16:31:03 Test Item Value Reference Range Interpretation Comments NT ProBNP (test code = 34877-5) 137 pg/mL <=125 H Lab Interpretation (test code = Abnormal 58264-2) [facility]21-10-15 16:31:03 Test Item Value Reference Range Interpretation Comments NT ProBNP (test code = 89436-9) 137 pg/mL <=125 H Lab Interpretation (test code = Abnormal 86488-8) [facility]21-10-15 16:31:03 Test Item Value Reference Range Interpretation Comments NT ProBNP (test code = 94228-6) 137 pg/mL <=125 H Lab Interpretation (test code = Abnormal 91261-3) [facility]21-10-15 16:31:03 Test Item Value Reference Range Interpretation Comments NT ProBNP (test code = 137 pg/mL See_Comment H [Aut omated message] 96057-4) The system [employer] generated this result transmit lakhwinder reference range : <=125. The refe rence range was not u sed to interpret th is result as normal/abnormal . Lab Interpretation (test Abnormal code = 91650-8) [facility]21-[facility]-15 16:31:03 Test Item Value Reference Range Interpretation Comments NT ProBNP (test code = 137 pg/mL See_Comment H [Aut omated message] 88411-5) The system [employer] generated this result transmit lakhwinder reference range : <=125. The refe rence range was not u sed to interpret th is result as normal/abnormal . Lab Interpretation (test Abnormal code = 99687-4) [facility]21-[facility]-15 16:31:03 Test Item Value Reference Range Interpretation Comments NT ProBNP (test code = 137 pg/mL See_Comment H [Aut omated message] 69148-4) The system [employer] generated this result transmit lakhwinder reference range : <=125. The refe rence range was not u sed to interpret th is result as normal/abnormal . Lab Interpretation (test Abnormal code = 49887-9) [facility] [id number] 16:31:01 Test Item Value Reference Range Interpretation Comments CK (test code = 2157-6) 48 U/L 39-308 [facility] [id number] 16:31:01 Test Item Value Reference Range Interpretation Comments CK (test code = 2157-6) 48 U/L 39-308 [facility] [id number] 16:31:01 Test Item Value Reference Range Interpretation Comments CK (test code = 2157-6) 48 U/L 39-308 [facility] [id number] 16:31:01 Test Item Value Reference Range Interpretation Comments CK (test code = 2157-6) 48 U/L 39-308 [facility] [id number] 16:31:01 Test Item Value Reference Range Interpretation Comments CK (test code = 2157-6) 48 U/L 39-308 [facility] [id number] 16:31:01 Test Item Value Reference Range Interpretation Comments CK (test code = 2157-6) 48 U/L 39-308 [facility] [id number] 16:31:01 Test Item Value Reference Range Interpretation Comments CK (test code = 2157-6) 48 U/L 39-308 [facility] 16:31:00 Test Item Value Reference Range Interpretation Comments CK MB (test code = 2.2 ng/mL See_Comment [Automat ed message] The 05978-9) system which ge nerated this result tra nsmitted reference range : <=10.4. The reference r jose was not used to int erpret this result as normal/abnormal . [facility]2022-04-18 16:31:00 Test Item Value Reference Range Interpretation Comments CK MB (test code = 05449-4) 2.2 ng/mL <=10.4 [facility]2022-04-18 16:31:00 Test Item Value Reference Range Interpretation Comments CK MB (test code = 83244-4) 2.2 ng/mL <=10.4 [facility] Test Item Value Reference Range Interpretation Comments CK MB (test code = 35794-1) 2.2 ng/mL <=10.4 [facility] 16:31:00 Test Item Value Reference Range Interpretation Comments CK MB (test code = 2.2 ng/mL See_Comment [Automat ed message] The 50175-1) system which ge nerated this result tra nsmitted reference range : <=10.4. The reference r jose was not used to int erpret this result as normal/abnormal . [facility]2022-04-18 16:31:00 Test Item Value Reference Range Interpretation Comments CK MB (test code = 2.2 ng/mL See_Comment [Automat ed message] The 76327-2) system which ge nerated this result tra nsmitted reference range : <=10.4. The reference r jose was not used to int erpret this result as normal/abnormal . [facility]2022-04-18 16:31:00 Test Item Value Reference Range Interpretation Comments CK MB (test code = 2.2 ng/mL See_Comment [Automat ed message] The 93572-4) system which ge nerated this result tra nsmitted reference range : <=10.4. The reference r jose was not used to int erpret this result as normal/abnormal . [facility] ([facility])Podzvclawqso-[id number] 16:04:24 Test Item Value Reference Range Interpretation Comments COVID19 Not Detected Not Detected (SARS-CoV-2) (test code = 84530-2) COVID19 SARS Inpatient Indication (test Admission code = 50428) Covid 19 Comment See Note The kacy S ARS-CoV-2 (test code = [place] [address]) use on the xenia s [employer] [...] sheet for patie nts provided by the olive pitter ([employer]) can be rev iewed at: https://www.fda .gov/m edia/673411/kunal nload. A fact sheet fo r Health Care pro viders is provided by the olive pitter ([employer]) and can be reviewed at: https://www.fda .gov/m edia/762970/kunal nload Results must be interpreted wit hin [...] has been authorized by t [facility] for use only un areli Emergency Use Authorization ( EUA) in laboratories that have been CLIA-certified to perform moderate-comple xity and high-comple xity tests. The [facility], CLIA Accreditation #[id number] and CAP Accreditation #[id number], verif ied the performance characteristics of this assay. Int ernal controls are ed to monitor all sta ges of the test proces s. [facility] CenterC[facility] ([facility]-2)Zdnfoatvgesi-[id number] 16:04:24 Test Item Value Reference Range Interpretation Comments COVID19 Not Detected Not Detected (SARS-CoV-2) (test code = 60440-7) COVID19 SARS Inpatient Indication (test Admission code = 51717) Covid 19 Comment See Note The kacy S ARS-CoV-2 (test code = [place] [address]) use on the xenia s [employer] System [...] sheet for patie nts provided by the olive pitter ([employer]) can be rev iewed at: https://www.fda .gov/m edia/820649/kunal nload. A fact sheet fo r Health Care pro viders is provided by the olive pitter ([employer]) and can be reviewed at: https://www.fda .gov/m edia/061125/kunal nload Results must be interpreted wit hin [...] has been authorized by yevgeniy [facility] for use only un areli Emergency Use Authorization ( EUA) in laboratories that have been CLIA-certified to perform moderate-comple xity and high-comple xity tests. The [facility], CLIA Accreditation #[id number] and CAP Accreditation #[id number], verif ied the performance characteristics of this assay. Int ernal controls are ed to monitor all sta ges of the test proces s. [facility] ([facility])Gvzdgvxpurut-[id number] 16:04:24 Test Item Value Reference Range Interpretation Comments COVID19 Not Detected Not Detected (SARS-CoV-2) (test code = 72534-7) COVID19 SARS Inpatient Indication (test Admission code = 07156) Covid 19 Comment See Note The kacy S ARS-CoV-2 (test code = [place] [address]) use on the xenia s [employer] [...] sheet for patie nts provided by the olive pitter ([employer]) can be rev iewed at: https://www.fda .gov/m edia/178783/kunal nload. A fact sheet fo r Health Care pro viders is provided by the olive pitter ([employer]) and can be reviewed at: https://www.fda .gov/m edia/223585/kunal nload Results must be interpreted wit hin [...] has been authorized by yevgeniy [facility] for use only un areli Emergency Use Authorization ( EUA) in laboratories that have been CLIA-certified to perform moderate-comple xity and high-comple xity tests. [facility], CLIA Accreditation #[id number] and CAP Accreditation #[id number], verif ied the performance characteristics of this assay. Int ernal controls are us ed to monitor all sta ges of the test proces s. [facility] ([facility])[id number]-[id number] 16:04:24 Test Item Value Reference Range Interpretation Comments COVID19 Not Detected Not Detected (SARS-CoV-2) (test code = 70959-8) COVID19 SARS Inpatient Indication (test Admission code = 01688) Covid 19 Comment See Note The kacy S ARS-CoV-2 (test code = [place] [address]) use on the xenia s [employer] [...] sheet for patie nts provided by the olive pitter ([employer]) can be rev iewed at: https://www.fda .gov/m edia/868697/kunal nload. A fact sheet fo r Health Care pro viders is provided by the olive pitter ([employer]) and can be reviewed at: https://www.fda .gov/m edia/868830/kunal nload Results must be interpreted wit hin [...] has been authorized by yevgeniy [facility] for use only un areli Emergency Use Authorization ( EUA) in laboratories that have been CLIA-certified to perform moderate-comple xity and high-comple xity tests. [facility], CLIA Accreditation #[id number] and CAP Accreditation #[id number], verif ied the performance characteristics of this assay. Int ernal controls are us ed to monitor all sta ges of the test proces s. [facility] ([facility])[id number]-[id number] 16:04:24 Test Item Value Reference Range Interpretation Comments COVID19 Not Detected Not Detected (SARS-CoV-2) (test code = 95988-1) COVID19 SARS Inpatient Indication (test Admission code = 52941) Covid 19 Comment See Note The kacy S ARS-CoV-2 (test code = [place] [address]) use on the xenia s [employer] System is a sherie l-time RT-PCR assay in tended for the qualita tive detection of SARS-CoV-2 (COV ID-19) viral RNA in nasopharyngeal swabs from either individuals paytno pected of COVID-19 by their healthcare prov ider or from any individual, inc luding individuals wit hout symptoms or oth er reasons to susp ect COVID-19. A fac t sheet for patie nts provided by the olive pitter ([employer]) can be rev iewed at: https://www.fda .gov/m edia/493452/kunal nload. A fact sheet fo r Health Care pro viders is provided by the olive pitter ([employer]) and can be reviewed at: https://www.fda .gov/m edia/773446/kunal nload Results must be interpreted wit hin [...] has been authorized by yevgeniy [facility] for use only un areli Emergency Use Authorization ( EUA) in laboratories that have been CLIA-certified to perform moderate-comple xity and high-comple xity tests. [facility], CLIA Accreditation #[id number] and CAP Accreditation #[id number], verif ied the performance characteristics of this assay. Int ernal controls are us ed to monitor all sta ges of the test proces s. [facility] ([facility])[id number] 16:04:24 Test Item Value Reference Range Interpretation Comments COVID19 Not Detected Not Detected (SARS-CoV-2) (test code = 48134-4) COVID19 SARS Inpatient Indication (test Admission code = 52904) Covid 19 Comment See Note The kacy S ARS-CoV-2 (test code = [place] [address]) use on the xenia s [employer] [...] sheet for patie nts provided by the olive pitter ([employer]) can be rev iewed at: https://www.fda .gov/m edia/374428/kunal nload. A fact sheet fo r Health Care pro viders is provided by the olive pitter ([employer]) and can be reviewed at: https://www.fda .gov/m edia/796538/kunal nload Results must be interpreted wit hin [...] assay has been authorized by yevgeniy [facility] for use only un areli Emergency Use Authorization ( EUA) in laboratories that have been CLIA-certified to perform moderate-comple xity and high-comple xity tests. The [facility], CLIA Accreditation #[id number] and CAP Accreditation #[id number], verif ied the performance characteristics of this assay. Int ernal controls are us ed to monitor all sta ges of the test proces s. [facility] ([facility])[id number]-[id number] 16:04:24 Test Item Value Reference Range Interpretation Comments COVID19 Not Detected Not Detected (SARS-CoV-2) (test code = 58074-7) COVID19 SARS Inpatient Indication (test Admission code = 47489) Covid 19 Comment See Note The kacy S ARS-CoV-2 (test code = [place] [address]) use on the xenia s [employer] [...] sheet for patie nts provided by the olive pitter ([employer]) can be rev iewed at: https://www.fda .gov/m edia/767100/kunal nload. A fact sheet fo r Health Care pro viders is provided by the olive pitter ([employer]) and can be reviewed at: https://www.fda .gov/m edia/289683/kunal nload Results must be interpreted wit hin [...] has been authorized by t [facility] for use only un areli Emergency Use Authorization ( EUA) in laboratories that have been CLIA-certified to perform moderate-comple xity and high-comple xity tests. The [facility], CLIA Accreditation #[id number] and CAP Accreditation #[id number], verif ied the performance characteristics of this assay. Int ernal controls are ed to monitor all sta ges of the test proces s. [facility]eraPTT[facility] 15:47:24 Test Item Value Reference Range Interpretation Comments aPTT (test code = 29.9 See_Comment [Automate d message] The 72251-1) system which ge nerated this result transmit lakhwinder reference range : 24.7 - 36.8 second(s). The reference range was not used to interpr et this result as paras l/abnormal. [facility] 15:47:24 Test Item Value Reference Range Interpretation Comments aPTT (test code = 29.9 See_Comment [Automate d message] The 68890-9) system which ge nerated this result transmit lakhwinder reference range : 24.7 - 36.8 second(s). The reference range was not used to interpr et this result as paras l/abnormal. [facility] 15:47:24 Test Item Value Reference Range Interpretation Comments aPTT (test code = 29.9 See_Comment [Automate d message] The 00271-3) system which ge nerated this result transmit lakhwinder reference range : 24.7 - 36.8 second(s). The reference range was not used to interpr et this result as paras l/abnormal. [facility] 15:47:24 Test Item Value Reference Range Interpretation Comments aPTT (test code = 29.9 See_Comment [Automate d message] The 18973-9) system which ge nerated this result transmit lakhwinder reference range : 24.7 - 36.8 second(s). The reference range was not used to interpr et this result as paras l/abnormal. [facility] 15:47:24 Test Item Value Reference Range Interpretation Comments aPTT (test code = 29.9 See_Comment [Automate d message] The 89198-4) system which ge nerated this result transmit lakhwinder reference range : 24.7 - 36.8 second(s). The reference range was not used to interpr et this result as paras l/abnormal. [facility] 15:47:24 Test Item Value Reference Range Interpretation Comments aPTT (test code = 29.9 See_Comment [Automate d message] The 81832-6) system which ge nerated this result transmit lakhwinder reference range : 24.7 - 36.8 second(s). The reference range was not used to interpr et this result as paras l/abnormal. [facility] 15:47:24 Test Item Value Reference Range Interpretation Comments aPTT (test code = 29.9 See_Comment [Automate d message] The 46806-5) system which ge nerated this result transmit lakhwinder reference range : 24.7 - 36.8 second(s). The reference range was not used to interpr et this result as paras l/abnormal. [facility] CenterProthrombin Time with [id number] 15:47:23 Test Item Value Reference Range Interpretation Comments PT (test code = 5902-2) 13.5 See_Comment [Au tomated message] The system [employer] generated this result transmitted ref erence range: 11.5 - 1 3.9 second(s). The reference range was not used to int erpret this result as normal/abnormal . INR (test code = 6301-6) 1.11 0.90-1.10 H Lab Interpretation (test Abnormal code = 44514-9) [facility] CenterProthrombin Time with [id number] 15:47:23 Test Item Value Reference Range Interpretation Comments PT (test code = 5902-2) 13.5 See_Comment [Au tomated message] The system [employer] generated this result transmitted ref erence range: 11.5 - 1 3.9 second(s). The reference range was not used to int erpret this result as normal/abnormal . INR (test code = 6301-6) 1.11 0.90-1.10 H Lab Interpretation (test Abnormal code = 43159-8) [facility] CenterProthrombin Time with [id number] 15:47:23 Test Item Value Reference Range Interpretation Comments PT (test code = 5902-2) 13.5 See_Comment [Au tomated message] The system [employer] generated this result transmitted ref erence range: 11.5 - 1 3.9 second(s). The reference range was not used to int erpret this result as normal/abnormal . INR (test code = 6301-6) 1.11 0.90-1.10 H Lab Interpretation (test Abnormal code = 38869-6) [facility] CenterProthrombin Time with [id number] 15:47:23 Test Item Value Reference Range Interpretation Comments PT (test code = 5902-2) 13.5 See_Comment [Au tomated message] The system [employer] generated this result transmitted ref erence range: 11.5 - 1 3.9 second(s). The reference range was not used to int erpret this result as normal/abnormal . INR (test code = 6301-6) 1.11 0.90-1.10 H Lab Interpretation (test Abnormal code = 47427-7) [facility] CenterProthrombin Time with [id number] 15:47:23 Test Item Value Reference Range Interpretation Comments PT (test code = 5902-2) 13.5 See_Comment [Au tomated message] The system [employer] generated this result transmitted ref erence range: 11.5 - 1 3.9 second(s). The reference range was not used to int erpret this result as normal/abnormal . INR (test code = 6301-6) 1.11 0.90-1.10 H Lab Interpretation (test Abnormal code = 50142-3) [facility] CenterProthrombin Time with [id number] 15:47:23 Test Item Value Reference Range Interpretation Comments PT (test code = 5902-2) 13.5 See_Comment [Au tomated message] The system [employer] generated this result transmitted ref erence range: 11.5 - 1 3.9 second(s). The reference range was not used to int erpret this result as normal/abnormal . INR (test code = 6301-6) 1.11 0.90-1.10 H Lab Interpretation (test Abnormal code = 95530-5) [facility] CenterProthrombin Time with [id number] 15:47:23 Test Item Value Reference Range Interpretation Comments PT (test code = 5902-2) 13.5 See_Comment [Au tomated message] The system [employer] generated this result transmitted ref erence range: 11.5 - 1 3.9 second(s). The reference range was not used to int erpret this result as normal/abnormal . INR (test code = 6301-6) 1.11 0.90-1.10 H Lab Interpretation (test Abnormal code = 12208-7) [facility] CenterRes[facility] + COVID-19, Nasopharyngeal [id number] 01:19:11 Test Item Value Reference Range Interpretation [...] Not Detected Not Detected (test code = 43059-3) Human Metapneumovirus Not Detected Not Detected (test [...] Detected Not Detected Parapertussis (test code = 77448) Bordetella pertussis Not Detected Not Detected (test [...] including SARS-CoV-2, from a single nasopharyngeal swab (SENIOR COUNSEL) specimen obtained from individuals suspected of respiratory [...] that may not be detected by an SENIOR COUNSEL specimen. Internal controls are used to monitor [...] and high-complexity tests. The [facility] at [facility], CLIA Accreditation #[id number] and CAP Accreditation #[id number], verified the performance characteristics of this assay. [facility] performs the assay using the [employer] System. Lab Interpretation Abnormal (test code = 33154-6) [facility] Center[facility] COVID-19, Nasopharyngeal [id number] 01:19:11 Test Item Value Reference Range Interpretation [...] Not Detected Not Detected (test code = 17995-4) Human Metapneumovirus Not Detected Not Detected (test [...] Detected Not Detected Parapertussis (test code = 38251) Bordetella pertussis Not Detected Not Detected (test [...] including SARS-CoV-2, from a single nasopharyngeal swab (SENIOR COUNSEL) specimen obtained from individuals suspected of respiratory [...] that may not be detected by an SENIOR COUNSEL specimen. Internal controls are used to monitor [...] and high-complexity tests. The [facility] at [facility], CLIA Accreditation #[id number] and CAP Accreditation #[id number], verified the performance characteristics of this assay. [facility] performs the assay using the [employer] System. Lab Interpretation Abnormal (test code = 26798-1) [facility] Center[facility] COVID-19, Nasopharyngeal [id number] 01:19:11 Test Item Value Reference Range Interpretation [...] Not Detected Not Detected (test code = 10109-7) Human Metapneumovirus Not Detected Not Detected (test [...] Detected Not Detected Parapertussis (test code = 95708) Bordetella pertussis Not Detected Not Detected (test [...] including SARS-CoV-2, from a single nasopharyngeal swab (SENIOR COUNSEL) specimen obtained from individuals suspected of respiratory [...] that may not be detected by an SENIOR COUNSEL specimen. Internal controls are used to monitor [...] and high-complexity tests. [facility] [facility], CLIA Accreditation #[id number] and CAP Accreditation #[id number], verified the performance characteristics of this assay. Microbiology Laboratory at [facility] performs the assay using the invino System. Lab Interpretation Abnormal (test code = 58496-3) [facility], Nasopharyngeal [id number] 01:19:11 Test Item Value Reference Range Interpretation Comments Adenovirus (test code = Not Detected Not Detected 7507) Coronavirus 229E (test Not Detected Not Detected code = 5349) Coronavirus HKU1 (test Detected Not Detected A code = 5350) Coronavirus NL63 (test Not Detected Not Detected code = 5351) Coronavirus OC43 (test Not Detected Not Detected code = 5352) COVID19 (SARS-CoV-2) Not Detected Not Detected (test code = 78356-8) Human Metapneumovirus Not Detected Not Detected (test [...] Detected Not Detected Parapertussis (test code = 70198) Bordetella pertussis Not Detected Not Detected (test code = 4854) Chlamydiophila Not Detected Not Detected pneumoniae (test code = 5139) Mycoplasma pneumoniae Not Detected Not Detected (test code = 6203) PAIGE (test code = PAIGE) [employer] RP2.1 is a real-time, nested multiplexed polymerase chain reaction test designed to simultaneously identify nucleic acids from 22 different viruses and bacteria associated with respiratory tract infection, including SARS-CoV-2, from a single nasopharyngeal swab (SENIOR COUNSEL) specimen obtained from individuals suspected of respiratory [...] that may not be detected by an SENIOR COUNSEL specimen. Internal controls are used to monitor [...] high-complexity tests. The Microbiology Laboratory at [facility] [place], CLIA Accreditation #[id number] and CAP Accreditation #[id number], verified the performance characteristics of this assay. Microbiology Laboratory at [facility] performs the assay using the invino System. Lab Interpretation Abnormal (test code = 56511-3) [facility], Nasopharyngeal [id number] 01:19:11 Test Item Value Reference Range Interpretation [...] Not Detected Not Detected (test code = 27565-4) Human Metapneumovirus Not Detected Not Detected (test [...] Detected Not Detected Parapertussis (test code = 50403) Bordetella pertussis Not Detected Not Detected (test [...] including SARS-CoV-2, from a single nasopharyngeal swab (SENIOR COUNSEL) specimen obtained from individuals suspected of respiratory [...] that may not be detected by an SENIOR COUNSEL specimen. Internal controls are used to monitor [...] and high-complexity tests. The Microbiology Laboratory at [facility], CLIA Accreditation #[id number] and CAP Accreditation #[id number], verified the performance characteristics of this assay. Microbiology Laboratory at [facility] performs the assay using the invino System. Lab Interpretation Abnormal (test code = 07016-0) [facility] [id number] 13:32:30 Test Item Value Reference Range Interpretation Comments POC Crea (test 0.6 mg/dL 0.6-1.3 Medications, code = 02626-6) especially h ydroxyurea or supplements, such as [...] Normal eGF R >= 60 code = 71840-9) mL/min/1.73 m2 The eGFR is calcula lakhwinder [...] GFR 15-295 Kidney failure <15 (or dialysis) [Automated mess age] The system [employer] generated this result transmitted ref erence range: >=60 mL/min/1.73 m2. The reference range was not used to int erpret this result as normal/abnormal . POC eGFR-JCARLOS (test 105 See_Comment Normal eG FR >= 60 code = 55547-3) mL/min/1.73 m2 The eGFR is calcula lakhwinder [...] <15 (or dialysis) [Auto mated message] The [employer] stem which generated this result transmit lakhwinder reference range : >=60 mL/min/1.73 m2. The reference range was not used to int erpret this result as normal/abnormal . POC Clean Dev Yes (test code = 6672) Performing Lab [facility] (test code = [facility] [place] [address]) Clinical Lab, [address] [facility], [place], [place] [address]; Manager Trust: Aletha Arciniega MD [facility] [id number] 13:32:30 Test Item Value Reference Range Interpretation Comments POC Crea (test 0.6 mg/dL 0.6-1.3 Medications, code = 28311-5) especially h ydroxyurea or supplements, such as [...] Normal eGF R >= 60 code = 68646-1) mL/min/1.73 m2 The eGFR is calcula lakhwinder [...] Normal eG FR >= 60 code = 08943-5) mL/min/1.73 m2 The eGFR is calcula lakhwinder [...] to moderate decrea se in GFR 45-593b Mo derate to severe decre ase in GFR 30-444 Ar re decrease in GFR 15-295 Kidney failure <15 (or dialysis) [Auto mated message] The sy stem which generated this result transmit lakhwinder reference range : >=60 mL/min/1.73 m2. The reference range was not used to int erpret this result as normal/abnormal . POC Clean Dev Yes (test code = 6672) Performing Lab [facility] Main [address] [facility] niversity (test code = [facility] [address]) Clinical Lab, [address] [facility], [place], [place] [address]; Manager Trust: Aletha Arciniega MD [facility] [id number] 13:32:30 Test Item Value Reference Range Interpretation Comments POC Crea (test 0.6 mg/dL 0.6-1.3 Medications, code = 81589-0) especially h ydroxyurea or supplements, such as [...] Normal eGF R >= 60 code = 83394-8) mL/min/1.73 m2 The eGFR is calcula lakhwinder [...] Normal eG FR >= 60 code = 85205-2) mL/min/1.73 m2 The eGFR is calcula lakhwinder [...] Yes (test code = 6672) Performing Lab [facility] (test code = [facility] [address]) Clinical Lab, [address] [place] [address]; Manager Trust: Aletha Arciniega MD [facility] [id number] 13:32:30 Test Item Value Reference Range Interpretation Comments POC Crea (test 0.6 mg/dL 0.6-1.3 Medications, code = 04018-4) especially h ydroxyurea or supplements, such as [...] Normal eGF R >= 60 code = 23068-1) mL/min/1.73 m2 The eGFR is calcula lakhwinder [...] Normal eG FR >= 60 code = 42509-2) mL/min/1.73 m2 The eGFR is calcula lakhwinder [...] (test code = 6672) Performing Lab [facility] niversity (test code = [facility] [place] [address]) Clinical Lab, [address] [facility], [place], [place] [address]; Manager Trust: Aletha Arciniega MD [facility] [place] Notes Date/Time Note Provider Source 2020-04-28 03:18:00-00:00 [facility] ([facility]) EMERGENCY PROVIDER REPORT REPORT#:[id number] REPORT STATUS: Signed DATE:04/28/20 TIME: 317 PATIENT: KARISHMA IYER IV UNIT #: [id number] ROOM/BED: AGE: 64 SEX: M PCP PHYS: No Primary or Family Ph ysician SERVICE AUTHOR: Lang Stewart MD * ALL edits or amendments must be made on the el [employer]/computer document * HPI-Eye Problem General Initial Greet [...] STA 04/28 0326 DC RIGHT EYE 04/28 032 Tetracaine HCl 1 DROP X1ED STA 04/28 0244 DC 10 RIGHT EYE 04/28 245 0313 Patient Discharge Departure Vital Signs/Condition Vital Signs First Documented: Result Date Time Pulse Ox 98 04/28 229 B/P 108/70 04/28 229 B/P Mean 82 04/28 229 O2 Delivery Room air 04/28 229 Temp 36.4 04/28 229 Pulse 68 04/28 229 Resp 16 04/28 229 Last Documented: Result Date Time Pulse Ox 99 04/28 0346 B/P 106/75 04/28 0346 B/P Mean 85 04/28 0346 O2 Delivery Room air 04/28 034 Temp 36.8 04/28 346 Pulse 65 04/28 034 Resp 18 04/28 346 All vital signs available at the time of this en try have been reviewed. Condition Stable Clinical Impression Clinical Impression Primary Impression: Right corneal abrasion Disposition Decision Discharge )( Discharged to Home Yes )( Time 0330 )( Date 04/28/20 Electronically Signed by Lang Stewart MD n 05/01/20 at 0521 RPT #:[id number] END OF REPORT 2019-08-12 20:15:00-00:00 [facility] ([facility]) EMERGENCY PROVIDER REPORT REPORT#:[id number] REPORT STATUS: Signed DATE:08/12/19 TIME: 2014 PATIENT: KARISHMA IYER IV UNIT #: [id number] ROOM/BED: AGE: 63 SEX: M PCP PHYS: No Primary or Family Ph ysician SERVICE DT: AUTHOR: Reji Devries * ALL edits or amendments must be made on the [email or web address]/computer document * HPI-Rash/Abscess/Cellulitis General Confirmed Patient Yes [...] Cardiovascular Cardiovascular Heart rate NL, Regular rhythm, Heart sounds NL, Peripheral circulation NL Skin Skin [...] Devries on 0 08/12/19 at 2019 RPT #:[id number] END OF REPORT 2019-08-12 20:15:00-00:00 [facility] REPORT#:[id number] REPORT STATUS: Signed DATE:08/12/19 TIME: 2014 PATIENT: KARISHMA IYER IV UNIT #: [id number] ROOM/BED: AGE: 63 SEX: M PCP PHYS: No Primary or Family Ph ysician SERVICE AUTHOR: Reji Devries * ALL edits or amendments must be made on the [email or web address] document * Reji Devries 08/12/19 2015: HPI-Rash/Abscess/Cellulitis [...] Risks, Benefits, Alternat ceci treatment Glenn Tao 08/17/19 2129: HPI-Rash/Abscess/Cellulitis General Initial Greet Date/Time 08/12/192011 Patient Discharge Departure Supervising Physician Note MidLv Saw Pt Alone I have reviewed the PA/MAT MAN's note and plan of car e. I was available for consultation as needed at al l times during the patient's visit in the emergency department. I agree with the clinical impression , plan and disposition. Electronically Signed by Reji Devries on 0 08/12/19 at 2020 at 2130 RPT #:[id number] END OF REPORT 2018-12-12 17:44:00-00:00 [facility] ([facility]) EMERGENCY PROVIDER REPORT REPORT#:[id number] REPORT STATUS: Signed DATE:12/12/18 TIME: 174 PATIENT: KARISHMA IYER IV UNIT #: [id number] ROOM/BED: AGE: 63 SEX: M PCP PHYS: No Primary or Family Ph ysician SERVICE AUTHOR: Génesis Boss MAT MAN * ALL edits or amendments must be made on the [email or web address] document * HPI-Ear Pain/Problem/FB General Confirmed Patient Yes Initial Greet Date/Time 12/12/181709 PCP none Presentation Chief Complaint Hearing loss [...] B/P 100/64 12/12 1704 B/P Mean 76 / 1704 O2 Delivery Room air 12/12 1704 Temp 36.8 12/12 1704 Pulse 68 12/12 1704 Resp 18 12/12 1704 Last Documented: Result Date Time Pulse Ox 98 12/12 1704 B/P 100/64 / 1704 B/P Mean 76 / 1704 O2 Delivery Room air 12/12 1704 [...] by Génesis Boss NP 12/12/18 at 1826 RUST #:[id number] END OF REPORT 2018-12-12 17:44:00-00:00 [facility]) EMERGENCY PROVIDER REPORT REPORT#:[id number] REPORT STATUS: Signed DATE:12/12/18 TIME: 1743 PATIENT: KARISHMA IYER IV UNIT #: [id number] ROOM/BED: AGE: 63 SEX: M PCP PHYS: No Primary or Family Ph ysician SERVICE AUTHOR: Génesis Boss MAT MAN * ALL edits or amendments must be made on the [email or web address] document * Génesis Boss 12/12/181743: HPI-Ear Pain/Problem/FB [...] Delivery Room air 12/12 1704 Temp 36.8 / 1704 Pulse 68 12/12 1704 Resp 18 12/12 1704 Last Documented: Result Date Time Pulse Ox 98 12/12 1704 B/P 100/64 12/12 1704 B/P Mean 76 / 1704 O2 Delivery Room air 12/12 1704 Temp 36.8 12/12 1704 Pulse 68 12/12 1704 Resp 18 06/15 1704 Review of Vital Signs Reviewed Focused [...] Yes Discharge/Care Plan Counseled Regarding use of Johanna Harp 12/12/18 1839: HPI-Ear Pain/Problem/FB General Initial Greet Date/Time 12/12/18 1710 Physical Exam Vital Signs Vital Signs Patient Discharge Departure Vital Signs/Condition Vital Signs Supervising Physician Note MidLv Saw Pt Alone I have reviewed the PA/MAT MAN's note and plan of car e. I was available for consultation as needed at al l times during the patient's visit in the emergency department. I agree with the clinical impression , plan and disposition. Electronically Signed by Génesis Boss NP o n 12/12/18 at 1826 Electronically Signed by Johanna Foy MD on 0 12/12/18 at 1839 RPT #:[id number] END OF REPORT 2018-11-14 05:01:00-00:00 [facility] ([facility]) EMERGENCY PROVIDER REPORT REPORT#:[id number] REPORT STATUS: Signed DATE:11/14/18 TIME: 0501 PATIENT: KARISHMA IYER IV UNIT #: [id number] ROOM/BED: AGE: 62 SEX: M PCP PHYS: No Primary or Family Ph ysician SERVICE AUTHOR: Tre Cook * ALL edits or amendments must be made on the [email or web address] document * HPI-Eye Problem General Confirmed Patient [...] Delivery Room air 11/14 0550 Temp 36.6 / 0550 Pulse 70 [...] symptoms should prompt an immediate return to [facility] or the closest emergency department or a [...] on 11/14/18 at 0553 at 0703 RPT #:[id number] END OF REPORT
[2022-12-24] MEDS ORDERED: FAMOTIDINE 20 MG/2 ML VIAL IV ONE (21:11)
[2022-12-24] MEDS ORDERED: ONDANSETRON 4 MG/2 ML VIAL ONE (21:11)
[2022-12-24] MEDS ORDERED: FENTANYL CITR 100 MCG/2 ML ONE ×2 (21:11→22:25)
[2022-12-24] MEDS ORDERED: NA CHLORIDE 0.9% 1,000 ML ONE ×2 (21:11→22:25)
[2022-12-24] MEDS ORDERED: Levofloxacin500mg IV 500 MG/100 ML BAG IV ONE (21:11)
[2022-12-24] MEDS ORDERED: DIPHENHYDRAMINE 50 MG/ML VIAL ONE (21:28)
--- NOTE | 2022-12-24 21:29 | RAD REPORT ---
EXAM DESCRIPTION: RADChest Single View12/24/2022 9:12 pm CLINICAL HISTORY: COPD;Chest pain COMPARISON: Chest Single View dated 11/24/2022; Chest Single View dated 11/14/2022; Chest Single View dated 11/06/2022; Chest Single View dated 10/06/2022; Chest For Pe Angio dated 11/24/2022 TECHNIQUE: Portable AP view of the chest. FINDINGS: Developing patchy airspace opacities in the left mid to lower lung. Mildly increased ossif ication in the right upper lobe, with otherwise stable peripheral right upper lobe opacification, com patible with known scarring. No pneumothorax or effusion. The cardiomediastinal contours are unremar kable. IMPRESSION: Developing patchy airspace opacities in the left mid to lower lung and to lesser extent in the right upper lobe. Findings raise concern for multifocal pneumonia.
[2022-12-24 21:36] LABS: Absolute Lymphocytes (CBC) 1.7 K/uL (0.7-4.9); Hematocrit 37.5 % (39.6-49.0); Lymphocytes % 7.1 % (15.3-44.8); MCV 96.4 fL (80-100); MPV 7.6 fL (7.6-11.3); RBC Red Blood Cell Count 3.89 M/uL (4.33-5.43)
[2022-12-24 21:38] LABS: Protime INR 1.59
[2022-12-24] MEDS ORDERED: LEVALBUTEROL 1.25 MG/3 ML NEB ONE (21:48)
[2022-12-24] MEDS ORDERED: METHYLPREDNISOLONE 40 MG INJ ONE (21:48)
[2022-12-24 21:49] LABS: ALT/SGPT < 10 U/L (16-61); AST/SGOT 8 U/L (15-37); Albumin 2.5 g/dL (3.4-5.0); Alkaline Phosphatase 77 U/L (45-117); BUN Blood Urea Nitrogen 7 mg/dL (7-18); Bicarbonate 30 mEq/L (21-32); Bilirubin Direct 0.2 mg/dL (0-0.2); Bilirubin Indirect, Calculated 0.3 mg/dL (0.2-0.8); Bilirubin Total 0.5 mg/dL (0.2-1.0); Glomerular Filtration Rate 96 ml/min (=/>90); Glucose Level 160 mg/dL (74-106); Lipase 10 U/L (13-75); Magnesium 1.8 mg/dL (1.6-2.4); NT PRO-BNP 798 pg/mL (<125); Potassium 3.7 mEq/L (3.5-5.1); Protein, Total 6.6 g/dL (6.4-8.2); Sodium Level 131 mEq/L (136-145); Troponin High Sensitivity 3.7 pg/mL (<58.9)
[2022-12-24] MEDS ORDERED: IPRATROPIUM BROM 0.5MG/2.5ML ONE (21:49)
--- NOTE | 2022-12-24 22:11 | EDPHYS ---
Physician Documentation [facility] Name: Chato Moreno IV Age: 67 yrs Sex: Male : 1955 Arrival Date: 12/24/2022 Time: 20: Bed 15 Private MD: ED Physician Adriano Isaac HPI: 12/24 20:53 This 67 yrs old Male presents to ER via EMS with complaints of cp, pleurtic, cely hx lung ca. 20:53 The patient has shortness of breath at rest, with light activity. Onset: The cely symptoms/episode began/occurred 1 week(s) ago. Duration: The symptoms are continuous, and are steadily getting worse. The patient's shortness of breath is aggravated by coughing. The patient or guardian reports chest pain that is located primarily in the anterior chest wall, bilaterally. Onset: 5 day(s) ago. The pain does not radiate. Associated signs and symptoms: Pertinent positives: non-productive cough. Severity of symptoms: At their worst the symptoms were moderate in the emergency department the symptoms are unchanged. The chest pain is described as aching, sharp. Historical: - Allergies: 20:41 No Known Allergies; vc1 - Home Meds: 20:41 buprenorphine-naloxone 8-2 mg sublingual film 0.5 film TID [Active]; Eliquis 5 mg Oral vc1 tablet 2 times per day [Active]; Megestrol Acetate Oral [Active]; memantine Oral [Active]; midodrine Oral [Active]; pantoprazole oral [Active]; Seroquel Oral [Active]; - PMHx: 20:41 Atrial fibrillation; COPD; Emphysema; Lung Cancer; Pneumonia; vc1 - PSHx: 20:41 None; vc1 - Immunization history:: Client reports receiving the 2nd dose of the Covid vaccine. - Family history:: not pertinent. - Social history:: Smoking status: unknown. ROS: 20:53 Constitutional: Negative for fever, chills, and weight loss, Eyes: Negative for injury, cely pain, redness, and discharge, ENT: Negative for injury, pain, and discharge, Neck: Negative for injury, pain, and swelling, Abdomen/GI: Negative for abdominal pain, nausea, vomiting, diarrhea, and constipation, Back: Negative for injury and pain, : Negative for injury, bleeding, discharge, and swelling, MS/Extremity: Negative for injury and deformity, Skin: Negative for injury, rash, and discoloration, Neuro: Negative for headache, weakness, numbness, tingling, and seizure, Psych: Negative for depression, anxiety, suicide ideation, homicidal ideation, and hallucinations, Allergy/Immunology: Negative for hives, rash, and allergies, Endocrine: Negative for neck swelling, polydipsia, polyuria, polyphagia, and marked weight changes, Hematologic/Lymphatic: Negative for swollen nodes, abnormal bleeding, and unusual bruising. 20:53 Cardiovascular: Positive for chest pain, with cough, with movement. 20:53 Respiratory: Positive for cough, shortness of breath. Exam: 20:53 Constitutional: This is a well developed, well nourished patient who is awake, alert, cely and in no acute distress. Head/Face: Normocephalic, atraumatic. Eyes: Pupils equal round and reactive to light, extra-ocular motions intact. Lids and lashes normal. Conjunctiva and sclera are non-icteric and not injected. Cornea within normal limits. Periorbital areas with no swelling, redness, or edema. ENT: Nares patent. No nasal discharge, no septal abnormalities noted. Tympanic membranes are normal and external auditory canals are clear. Oropharynx with no redness, swelling, or masses, exudates, or evidence of obstruction, uvula midline. Mucous membranes moist. Neck: Trachea midline, no thyromegaly or masses palpated, and no cervical lymphadenopathy. Supple, full range of motion without nuchal rigidity, or vertebral point tenderness. No Meningismus. Chest/axilla: Normal chest wall appearance and motion. Nontender with no deformity. No lesions are appreciated. Cardiovascular: Regular rate and rhythm with a normal S1 and S2. No gallops, murmurs, or rubs. Normal PMI, no JVD. No pulse deficits. Abdomen/GI: Soft, non-tender, with normal bowel sounds. No distension or tympany. No guarding or rebound. No evidence of tenderness throughout. Back: No spinal tenderness. No costovertebral tenderness. Full range of motion. Male : Normal genitalia with no discharge or lesions. Skin: Warm, dry with normal turgor. Normal color with no rashes, no lesions, and no evidence of cellulitis. MS/ Extremity: Pulses equal, no cyanosis. Neurovascular intact. Full, normal range of motion. Neuro: Awake and alert, GCS 15, oriented to person, place, time, and situation. Cranial nerves II-XII grossly intact. Motor strength 5/5 in all extremities. Sensory grossly intact. Cerebellar exam normal. Normal gait. Psych: Awake, alert, with orientation to person, place and time. Behavior, mood, and affect are within normal limits. 20:53 Respiratory: the patient does not display signs of respiratory distress, Respirations: labored breathing, that is mild, Breath sounds: decreased breath sounds, rhonchi, stridor, is not appreciated, Respiratory rate: 92 20:53 Musculoskeletal/extremity: DVT Exam: No signs of deep vein thrombosis. no pain, no swelling, no tenderness, negative Homans' sign noted on exam, no appreciated bluish discoloration, no erythema, no increased warmth. Vital Signs: 20:36 BP 92 / 68; Pulse 92; Resp 17; Temp 98.3; Pulse Ox 99% ; vc1 21:33 Weight 44.45 kg (R); cm10 22:00 BP 109 / 73; Pulse 89; Resp 18; Pulse Ox 100% on 3 lpm NC; cm10 22:41 BP 111 / 73; Pulse 93; Resp 18; Pulse Ox 100% 3 lpm ; cm10 MDM: 20:39 Patient medically screened. cely 20:58 Differential diagnosis: Bronchitis CHF exacerbation, Chronic Obstructive Pulmonary cely Disease abnormal EKG, acute myocardial infarction, acute pericarditis, anxiety, costochondritis, esophagitis, gastritis, gastroesophageal reflux disease (GERD), herpes zoster, hiatal hernia, pneumothorax, pulmonary embolus, pneumonia, Pulmonary Embolism reactive airway disease, Sepsis. Antibiotic administration: Levaquin given. HEART Score:. TISHA Risk Score: 1 - patient's age is greater or equal to 65 years, 1 - Three or more CAD risk factors, 1- Known CAD, TOTAL SCORE = 3. Immunization status: Pneumococcal vaccine: within last 5 years. Influenza vaccine: within last 5 years. Data reviewed: vital signs, nurses notes, lab test result(s), EKG, radiologic studies, CT scan, plain films. Consideration of Admission/Observation Escalation of care including admission/observation considered. 12/24 20:48 Order name: Basic Metabolic Panel; Complete Time: 22:07 cely 12/24 20:48 Order name: CBC with Diff; Complete Time: 22:07 [facility] 12/24 20:48 Order name: LFT's; Complete Time: 22: [facility] 12/24 20:48 Order name: Magnesium; Complete Time: 22: [facility] 12/24 20:48 Order name: NT PRO-BNP; Complete Time: 22:07 [facility] 12/24 20:48 Order name: PT-INR; Complete Time: 22: [facility] 12/24 20:48 Order name: Troponin HS; Complete Time: 22:07 [facility] 12/24 20:48 Order name: Blood Culture Adult (2) 12/24 20:48 Order name: Lactate w/ 2H reflex if indic.; Complete Time: 22: [facility] 12/24 20:48 Order name: Lipase; Complete Time: 22:07 [facility] 12/24 20:48 Order name: XRAY Chest (1 view); Complete Time: 21:37 12/24 20:48 Order name: CT Chest For PE Angio 12/24 20:48 Order name: EKG; Complete Time: 20:49 12/24 20:48 Order name: Cardiac monitoring; Complete Time: 21:16 12/24 20:48 Order name: EKG - Nurse/Tech; Complete Time: 21:16 cely 12/24 20:48 Order name: IV Saline Lock; Complete Time: 21:16 [facility] 12/24 20:48 Order name: Labs collected and sent; Complete Time: 21:16 12/24 20:48 Order name: O2 Per Protocol; Complete Time: 21:16 12/24 20:48 Order name: O2 Sat Monitoring; Complete Time: 21:16 [facility] Administered Medications: 21:15 Drug: NS 0.9% IV 1000 ml Route: IV; Rate: 1 bolus; Site: right forearm; cm10 22:53 Follow up: IV Status: Completed infusion; IV Intake: 1000ml cm10 21:15 Drug: fentaNYL (PF) IVP 25 mcg Route: IVP; Site: left forearm; cm10 21:59 Follow up: Response: No adverse reaction cm10 21:15 Drug: Famotidine IVP 20 mg Route: IVP; Site: left forearm; cm10 21:59 Follow up: Response: No adverse reaction cm10 21:15 Drug: Ondansetron IVP 4 mg Route: IVP; Site: left forearm; cm10 21:59 Follow up: Response: No adverse reaction cm10 21:32 Drug: levofloxacin IVPB 500 mg Volume: 100 ml; Route: IVPB; Infused Over: 60 mins; cm10 Site: right forearm; 22:54 Follow up: IV Status: Completed infusion; IV Intake: 100ml cm10 21:51 Drug: MethylPrednisoLONE IVP 2 mg/kg Route: IVP; Site: right antecubital; vc1 22:23 Follow up: Response: No adverse reaction cm10 21:51 Drug: Levalbuterol Inhalation 2.5 mg Route: Inhalation; vc1 22:24 Follow up: Response: No adverse reaction cm10 21:51 Drug: Ipratropium Inhalation Aerosol 0.5 mg Route: Inhalation; vc1 22:24 Follow up: Response: No adverse reaction cm10 21:59 Not Given (Patient Refused): diphenhydrAMINE IVP 25 mg IVP once cm10 22:48 Drug: fentaNYL (PF) IVP 25 mcg Route: IVP; Site: right forearm; cm10 23:09 Follow up: Response: No adverse reaction cm10 22:57 Drug: NS 0.9% IV 1000 ml Route: IV; Rate: 125 ml/hr; Site: right forearm; cm10 22:58 Follow up: Response: No adverse reaction; IV Status: Infusion continued upon admission cm10 22:57 Drug: Piperacillin-Tazobactam IVPB 3.375 grams Route: IVPB; Infused Over: 60 mins; cm10 Site: right forearm; 22:57 Follow up: IV Status: Infusion continued upon admission cm10 Disposition Summary: 12/24/22 22:10 Hospitalization Ordered Hospitalization Status: Inpatient Admission cely Provider: Fab Monroe cha Location: Telemetry/MedSurg (Inpatient) cely Condition: Fair cely Problem: new cely Symptoms: have improved cely Bed/Room Type: Standard cley Room Assignment: 224(12/24/22 22:45) cg Diagnosis - Pleurisy cely - Pneumonia due to other specified bacteria - multifocal cely - Elevated white blood cell count cely - COPD/ Chronic obstructive pulmonary disease with (acute) exacerbation cely Forms: - Medication Reconciliation Form cely - SBAR form cely Signatures: Dispatcher [employer] EDAdriano Pichardo MD MD cha Garcia, Cindy RN RN cg Jennifer Almanza RN RN vc1 Shavon Vnison RN RN cm10 Corrections: (The following items were deleted from the chart) 22:45 22:10 cely gooden
--- NOTE | 2022-12-24 22:11 | ER ---
Nurse's Notes [facility] Name: Chato Moreno IV Age: 67 yrs Sex: Male : 1955 Arrival Date: 12/24/2022 Time: 20:26 Bed 15 Private MD: Diagnosis: Pleurisy;Pneumonia due to other specified bacteria-multifocal;Elevated white blood cell count;COPD/ Chronic obstructive pulmonary disease with (acute) exacerbation Presentation: 12/24 20:36 Chief complaint: EMS states: "Pt states he has been having difficulty breathing for the vc1 last 2-3 days and having pain with expiration. When we arrived pain was 10/10 we gave 1 fram of offirmev and when we arrived he said pain was a 5/10". Coronavirus screen: Vaccine status: Patient reports receiving the 2nd dose of the covid vaccine. 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 Ebola Screen: Patient negative for fever greater than or equal to 101.5 degrees Fahrenheit, and additional compatible Ebola Virus Disease symptoms Patient denies exposure to infectious person. Patient denies travel to an Ebola-affected area in the 21 days before illness onset. No symptoms or risks identified at this time. Initial Sepsis Screen: Does the patient meet any 2 criteria? No. Patient's initial sepsis screen is negative. Does the patient have a suspected source of infection? No. Patient's initial sepsis screen is negative. Risk Assessment: Do you want to hurt yourself or someone else? Patient reports no desire to harm self or others. Onset of symptoms was December 21, 2022. 20:36 Method Of Arrival: EMS: [facility] vc1 20:36 Acuity: STEWART 3 vc1 Historical: - Allergies: 20:41 No Known Allergies; vc1 - Home Meds: 20:41 buprenorphine-naloxone 8-2 mg sublingual film 0.5 film TID [Active]; Eliquis 5 mg Oral vc1 tablet 2 times per day [Active]; Megestrol Acetate Oral [Active]; memantine Oral [Active]; midodrine Oral [Active]; pantoprazole oral [Active]; Seroquel Oral [Active]; - PMHx: 20:41 Atrial fibrillation; COPD; Emphysema; Lung Cancer; Pneumonia; vc1 - PSHx: 20:41 None; vc1 - Immunization history:: Client reports receiving the 2nd dose of the Covid vaccine. - Family history:: not pertinent. - Social history:: Smoking status: unknown. Screenin:10 [facility] ED Fall Risk Assessment (Adult) History of falling in the last 3 months, cm10 including since admission No falls in past 3 months (0 pts) Confusion or Disorientation No (0 pts) Intoxicated or Sedated No (0 pts) Impaired Gait Yes (1 pt) Mobility Assist Device Used Yes (1 pt) Altered Elimination No (0 pt) Score/Fall Risk Level 0 - 2 = Low Risk Oriented to surroundings, Maintained a safe environment, Educated pt \\T\\ family on fall prevention, incl call for assistance when getting out of bed, Hourly rounding (assess needs \\T\\ fall precautionary measures) done. Abuse screen: Denies threats or abuse. Denies injuries from another. Nutritional screening: No deficits noted. Tuberculosis screening: No symptoms or risk factors identified. Assessment: 21:20 Reassessment: Pt has noted redness and itching to left forearm. Dr. Isaac made cm10 aware, verbal orders for Benadryl 25mg IVP obtained. Pt states that he does not want the Benadryl at this time because the redness and itching were going away. 22:08 General: Appears in no apparent distress. comfortable, Behavior is calm, cooperative. cm10 Pain: Complains of pain in chest Pain currently is 10 out of 10 on a pain scale. Aggravated by repositioning, cough. Neuro: No deficits noted. Level of Consciousness is awake, alert, Oriented to person, place, time, situation. Respiratory: No deficits noted. Airway is patent Respiratory effort is even, unlabored, Respiratory pattern is regular, symmetrical. Vital Signs: 20:36 BP 92 / 68; Pulse 92; Resp 17; Temp 98.3; Pulse Ox 99% ; vc1 21:33 Weight 44.45 kg (R); cm10 22:00 BP 109 / 73; Pulse 89; Resp 18; Pulse Ox 100% on 3 lpm NC; cm10 22:41 BP 111 / 73; Pulse 93; Resp 18; Pulse Ox 100% 3 lpm ; cm10 ED Course: 20:28 Patient arrived in ED. sb4 20:39 Adriano Isaac MD is Attending Physician. cely 20:41 Triage completed. vc1 20:44 Arm band placed on left wrist. vc1 20:57 Radiology exam delayed due to lab results not completed at this time. (BUN/Creatinine) jg10 IV insertion attempt and/or patient not having appropriate IV at this time. 20:57 Shavon Vinson, RN is Primary Nurse. cm10 21:14 XRAY Chest (1 view) In Process Unspecified. EDMS 21:15 Lipase Sent. cm10 21:15 Initial lab(s) drawn, by ED staff, sent to lab. First set of blood cultures drawn by ED cm10 staff. 21:16 Lactate w/ 2H reflex if indic. Sent. cm10 21:16 Basic Metabolic Panel Sent. cm10 21:16 CBC with Diff Sent. cm10 21:16 LFT's Sent. cm10 21:16 Magnesium Sent. cm10 21:16 NT PRO-BNP Sent. cm10 21:16 PT-INR Sent. cm10 21:16 Troponin HS Sent. cm10 21:16 Inserted saline lock: 20 gauge in left forearm, using aseptic technique. Blood cm10 collected. 21:28 Second set of blood cultures drawn by nm. cm10 22:08 Fab Monroe is Hospitalizing Provider. [facility] 22:10 Bed in low position. Call light in reach. Side rails up X2. Client placed on continuous cm10 cardiac and pulse oximetry monitoring. NIBP monitoring applied. Lights dimmed. Warm blanket given. Pillow given. 22:[address] via stretcher. cm10 22:41 CT Chest For PE Angio In Process Unspecified. EDMS 22:[address] back from [address]. cm10 22:56 No provider procedures requiring assistance completed. Patient admitted, IV remains in cm10 place. Administered Medications: 21:15 Drug: NS 0.9% IV 1000 ml Route: IV; Rate: 1 bolus; Site: right forearm; cm10 22:53 Follow up: IV Status: Completed infusion; IV Intake: 1000ml cm10 21:15 Drug: fentaNYL (PF) IVP 25 mcg Route: IVP; Site: left forearm; cm10 21:59 Follow up: Response: No adverse reaction cm10 21:15 Drug: Famotidine IVP 20 mg Route: IVP; Site: left forearm; cm10 21:59 Follow up: Response: No adverse reaction cm10 21:15 Drug: Ondansetron IVP 4 mg Route: IVP; Site: left forearm; cm10 21:59 Follow up: Response: No adverse reaction cm10 21:32 Drug: levofloxacin IVPB 500 mg Volume: 100 ml; Route: IVPB; Infused Over: 60 mins; cm10 Site: right forearm; 22:54 Follow up: IV Status: Completed infusion; IV Intake: 100ml cm10 21:51 Drug: MethylPrednisoLONE IVP 2 mg/kg Route: IVP; Site: right antecubital; vc1 22:23 Follow up: Response: No adverse reaction cm10 21:51 Drug: Levalbuterol Inhalation 2.5 mg Route: Inhalation; vc1 22:24 Follow up: Response: No adverse reaction cm10 21:51 Drug: Ipratropium Inhalation Aerosol 0.5 mg Route: Inhalation; vc1 22:24 Follow up: Response: No adverse reaction cm10 21:59 Not Given (Patient Refused): diphenhydrAMINE IVP 25 mg IVP once cm10 22:48 Drug: fentaNYL (PF) IVP 25 mcg Route: IVP; Site: right forearm; cm10 23:09 Follow up: Response: No adverse reaction cm10 22:57 Drug: NS 0.9% IV 1000 ml Route: IV; Rate: 125 ml/hr; Site: right forearm; cm10 22:58 Follow up: Response: No adverse reaction; IV Status: Infusion continued upon admission cm10 22:57 Drug: Piperacillin-Tazobactam IVPB 3.375 grams Route: IVPB; Infused Over: 60 mins; cm10 Site: right forearm; 22:57 Follow up: IV Status: Infusion continued upon admission cm10 Medication: 20:44 VIS not applicable for this client. vc1 Intake: 22:53 IV: 1000ml; Total: 1000ml. cm10 22:54 IV: 100ml; Total: 1100ml. cm10 Outcome: 22:10 Decision to Hospitalize by Provider. cely 22:57 Admitted to Med/surg accompanied by tech, via stretcher, room 224, with oxygen, Report cm10 called to ELLA Singh 22:57 Condition: good 22:57 Instructed on the need for admit. 23:10 Patient left the ED. cm10 Signatures: Dispatcher [employer] Adriano Marcelo MD MD cha Calcote, Vanessa RN RN vc1 Larissa Santa PA-C PA-C sb4 Evelyn Ross jg10 Shavon Vinson, RN RN cm10
--- NOTE | 2022-12-24 22:46 | P.HP ---
Certification for Inpatient Patient admitted to: Inpatient With expected LOS: <2 Midnights Patient will require the following post-hospital care: None Practitioner: I am a practitioner with admitting privileges, knowledge of patient current condition, hospital course, and medical plan of care. Services: Services provided to patient in accordance with Admission requirements found in Title 42 Section 412.3 of the Code of Federal Regulations Patient History Date of Service: 12/24/22 Reason for admission: Multifocal Pneumonia History of Present Illness: Mr. Moreno is a 67-year-old male with past medical history of lung cancer s/p radiation & chemotherapy, COPD on home O2, chronic pain, PE on eliquis, atrial fibrillation, and alcoholism who presented to the emergency department via EMS with complaints of worsening shortness of breath x 3 days. His labs today are significant for lactate WBC 24, covid/flu negative. Chest xray showed "Developing patchy airspace opacities in the left mid to lower lung and to lesser extent in the right upper lobe. Findings raise concern for multifocal pneumonia." Chest CTA pending. He was given IV fluids, nebs, and started on levaquin and zosyn. ED provider wishes to admit patient for further management. Allergies No Known Allergies Allergy (Verified 10/07/22 13:27) Home medications list reviewed: Yes Home Medications: Buprenorphine/Nalox 0.5 film SL TID 08/29/22 Apixaban [Eliquis] 5 mg PO BID 30 Days #60 tablet 08/30/22 Midodrine HCl [Proamatine*] 5 mg PO BID 30 Days #30 tab 08/31/22 Pantoprazole [Protonix Tab*] 40 mg PO BID #60 tab 10/07/22 Albuterol Sulfate [Albuterol Sulfate 0.083% Neb Soln] 2.5 mg IH Q6HP PRN 0 11/15/22 Ensure Enlive 237 ml PO BID #30 can 11/15/22 Memantine HCl [Namenda*] 10 mg PO DAILY 11/15/22 Quetiapine [Seroquel*] 75 mg PO BEDTIME 11/15/22 Thiamine HCl [Vitamin B-1*] 100 mg PO DAILY #30 tab 11/15/22 levoFLOXacin [Levaquin*] 750 mg PO DAILY #7 tab 11/15/22 predniSONE [Prednisone*] 40 mg PO DAILY #10 tab 11/15/22 - Past Medical/Surgical History Diabetic: No -: Chronic pain -: Anorexia -: COPDon home O2 -: History of lung cancer, small cell lung cancer with mets -: Pulmonary Embolism -: Atrial fibrillation Past Surgical History: Patient denies surgical history -: None Psychosocial/ Personal History: Patient is retired and lives at home with his . - Family History Sister -: Cancer - Social History Smoking Status: Current every day smoker Alcohol use: Yes CD- Drugs: No Caffeine use: Yes Place of Residence: Home Review of Systems Respiratory: Shortness of Breath, Pleuritic Pain Cardiovascular: Chest Pain Physical Examination - Vital Signs Temperature: 98.3 F Blood Pressure: 92/68 Pulse: 92 Respirations: 17 Pulse Ox (%): 99 (3L NC) - Physical Exam General: Alert, In no apparent distress HEENT: Atraumatic, EOMI, Sclerae nonicteric Neck: Supple, 2+ carotid pulse no bruit Respiratory: Clear to auscultation bilaterally, Normal air movement Cardiovascular: Regular rate/rhythm, Normal S1 S2 Gastrointestinal: Normal bowel sounds, No tenderness Musculoskeletal: No tenderness Integumentary: No rashes Neurological: Normal speech, Normal affect - Studies Laboratory Data (last 24 hrs) 12/24/22 21:10: PT 18.3 H, INR 1.59 12/24/22 21:10: WBC 24.10 H, Hgb 12.2 L, Hct 37.5 L, Plt Count 312 12/24/22 21:10: Sodium 131 L, Potassium 3.7, BUN 7, Creatinine 0.80, Glucose 160 H, Magnesium 1.8, Total Bilirubin 0.5, AST 8 L, ALT < 10 L, Alkaline Phosphatase 77, Lipase 10 L Assessment and Plan - Problems (Diagnosis) (1) Multifocal pneumonia Current Visit: Yes Status: Acute (2) Chronic respiratory failure with hypoxia Current Visit: Yes Status: Chronic (3) History of pulmonary embolism Current Visit: Yes Status: Chronic (4) Alcohol abuse Current Visit: Yes Status: Chronic (5) COPD (chronic obstructive pulmonary disease) Current Visit: Yes Status: Chronic Qualifiers: COPD type: unspecified COPD Qualified Code(s): J44.9 - Chronic obstructive pulmonary disease, unspecified (6) History of lung cancer Current Visit: Yes Status: Chronic - Plan Patient is admitted for further management of sepsis secondary to multifocal pneumonia. Blood cultures obtained. Started on levaquin and zosyn. IV steroids, PRN nebs & antitussives, incentive spirometry. Monitor and optimize electrolytes. Currently saturating appropriately on his home oxygen requirement. Tobacco and alcohol cessation advised. Daily folic acid and thiamine. Resume home eliquis. Discharge Plan: Home Plan to discharge in: Greater than 2 days - Advance Directives Does patient have a Living Will: No Does patient have a Durable POA for Healthcare: No - Code Status/Comfort Care Code Status Assessed: Yes Code Status: Full Code Physician Review: Patient Assessed, Agree with Above Assessment and Plan Critical Care: No Time Spent Managing Pts Care (In Minutes): 50
[2022-12-24] MEDS ORDERED: PIPERACIL/TAZO 3.375 GM VIAL IV ONE (22:58)
[2022-12-24] MEDS ORDERED: NA CHLORIDE 0.9% 100 ML ONE (22:58)
[2022-12-24] MEDS ORDERED: IPRATROPIUM BROM 0.5MG/2.5ML NEB PRN (23:21)
[2022-12-24] MEDS ORDERED: HYDROCODONE/CHLORPHEN 5 ML/OSYR PO PRN (23:21)
[2022-12-24] MEDS ORDERED: ACETAMINOPHEN 500 MG TAB PO PRN (23:21)
[2022-12-24] MEDS ORDERED: ALBUTEROL 2.5 MG/3 ML NEB SOL NEB PRN (23:21)
[2022-12-24 23:40] VITALS: BMI 15.2
[2022-12-25 03:23] LABS: Absolute Lymphocytes (CBC) 0.5 K/uL (0.7-4.9); Hematocrit 34.7 % (39.6-49.0); Lymphocytes % 2.5 % (15.3-44.8); MCV 96.7 fL (80-100); MPV 7.8 fL (7.6-11.3); RBC Red Blood Cell Count 3.59 M/uL (4.33-5.43)
[2022-12-25 03:48] LABS: Magnesium 1.9 mg/dL (1.6-2.4); Phosphorus 2.3 mg/dL (2.5-4.9); Potassium 3.3 mEq/L (3.5-5.1)
[2022-12-25] MEDS ORDERED: FENTANYL CITR 100 MCG/2 ML IV ONE (04:52)
[2022-12-25] MEDS ORDERED: POTASSIUM CL SA 10 MEQ TAB PO ONE (05:56)
[2022-12-25] MEDS ORDERED: POTASS/SODIUM PHOSPHATE 1 PKT POWD.PACK PO SCH (07:00)
[2022-12-25] MEDS ORDERED: APIXABAN 5 MG TABLET PO SCH (09:00)
[2022-12-25] MEDS ORDERED: FOLIC ACID 5 MG/ML VIAL IVP SCH (09:00)
[2022-12-25] MEDS: FOLIC ACID 1 MG in NA CHLORIDE 0.9% 50 ML IV SCH (09:06)
[2022-12-25] MEDS: DULERA 200/5 (MOMETASONE/FORMOTEROL) INHALER IH SCH ×2 (09:07→20:48)
[2022-12-25] MEDS: POTASS/SODIUM PHOSPHATE 1 PKT POWD.PACK PO SCH ×3 (09:07→09:12)
[2022-12-25] MEDS: THIAMINE 200 MG/2 ML INJ IVP SCH (09:08)
[2022-12-25] MEDS: APIXABAN 5 MG TABLET PO SCH ×2 (09:08→20:48)
[2022-12-25] MEDS: MEMANTINE HCL 10 MG TABLET PO SCH (09:15)
[2022-12-25] MEDS: PANTOPRAZOLE 40MG TABLET PO SCH ×2 (09:15→20:48)
[2022-12-25] MEDS: MIDODRINE HCL 5 MG TABLET PO SCH ×2 (09:15→20:48)
--- NOTE | 2022-12-25 10:21 | RAD REPORT ---
EXAM DESCRIPTION: CT - Chest For Pe Angio - 12/24/2022 11:41 pm CLINICAL HISTORY: The patient is 67 years old and is Male; CHEST PAIN TECHNIQUE: Axial computed tomographic angiography images of the chest with intravenous contrast. T his CT exam was performed using one or more of the following dose reduction techniques: automated e xposure control, adjustment of the mA and/or kV according to patient size, and/or use of iterative re construction technique. MIP reconstructed images were created and reviewed. Oblique reformatted images were created and reviewed. DLP: 259 mGy*cm COMPARISON: Chest radiograph of the same day FINDINGS: PULMONARY ARTERIES: Unremarkable. No pulm onary embolism. AORTA: No acute findings. No thoracic aortic aneurysm. LUNGS: Consolidations in the right upper lobe and lingula with air bronchograms and interlobular se ptal thickening concerning for pneumonia. Hyperinflation and bullous emphysema. Possible scattered fibrotic changes. PLEURAL SPACE: Unremarkable. No significant effusion. No pneumothorax. HEART: Unremarkable. No cardiomegaly. No significant pericardial effusion. No evidence of RV dysfunction. MEDIASTINUM: Mediastinal and bihilar lymphadenopathy. BONES/JOINTS: No acute fracture. No dislocation. SOFT TISSUES: Unremarkable. LYMPH NODES: Unremarkable. No enlarged lymph nodes. IMPRESSION: 1. No pulmonary embolism. 2. Consolidations in the right upper lobe and lingula with air bronchograms and interlobular septal thickening concerning for pneumonia. 3. Mediastinal and bihilar lymphadenopathy. 4. Advanced chronic lung changes. Electronically signed by: Russ Patten DO 12/24/2022 11:26 PM CDT Due to temporary technical issues with the PACS/Fluency reporting system, reports are being signed by the in house radiologist without review as a courtesy to ensure prompt reporting. The interpreting r adiologist is fully responsible for the content of the report.
[2022-12-25] MEDS: HYDROCODONE/APAP 5/325 MG TAB PO PRN ×2 (11:25→17:28)
--- NOTE | 2022-12-25 11:54 | P.PN ---
Subjective Date of Service: 12/25/22 Chief Complaint: Chest pain pneumonia Patient is 67 years of age with a history of lung cancer COPD admitted again complaining of worsening shortness of breath chest pain got worse over the past 3 days afford Trelegy using it as needed history of pulmonary embolism on Eliquis Review of Systems General: Weakness Respiratory: Shortness of Breath Cardiovascular: Chest Pain Physical Examination - Vital Signs Temperature: 97.3 F Blood Pressure: 100/60 Pulse: 86 Respirations: 14 Pulse Ox (%): 98 - Physical Exam General: Alert, Oriented x3 Neck: Supple Respiratory: Clear to auscultation bilaterally, Diminished Cardiovascular: No edema, Regular rate/rhythm, Normal S1 S2 Gastrointestinal: Normal bowel sounds, Soft and benign - Studies Laboratory Data (last 24 hrs) 12/24/22 21:10: PT 18.3 H, INR 1.59 12/24/22 21:10: WBC 24.10 H, Hgb 12.2 L, Hct 37.5 L, Plt Count 312 12/24/22 21:10: Sodium 131 L, Potassium 3.7, BUN 7, Creatinine 0.80, Glucose 160 H, Magnesium 1.8, Total Bilirubin 0.5, AST 8 L, ALT < 10 L, Alkaline Phosphatase 77, Lipase 10 L Assessment And Plan - Current Problems (Diagnosis) (1) Multifocal pneumonia Current Visit: Yes Status: Acute Plan: Patient is 67 years of age with a history of metastatic lung cancer was treated with radiation and chemo Zentz with 3-day history of worsening chest pain on both sides of his chest. 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
[2022-12-25] MEDS ORDERED: ALBUTEROL 2.5 MG/3 ML NEB SOL NEB PRN (13:00)
[2022-12-25] MEDS: ENSURE ENLIVE 237 ML CAN PO SCH (20:49)
[2022-12-25] MEDS ORDERED: AMITRIPTYLINE 25 MG TAB PO SCH (21:00)
[2022-12-25] MEDS ORDERED: Levofloxacin500mg IV 500 MG/100 ML BAG IV SCH (21:00)
[2022-12-25] MEDS ORDERED: QUETIAPINE 25 MG TAB PO SCH (22:35)
[2022-12-26 04:06] LABS: Absolute Lymphocytes (CBC) 1.9 K/uL (0.7-4.9); Hematocrit 30.5 % (39.6-49.0); Lymphocytes % 12.6 % (15.3-44.8); MCV 96.5 fL (80-100); MPV 8.1 fL (7.6-11.3); RBC Red Blood Cell Count 3.16 M/uL (4.33-5.43)
[2022-12-26 04:19] LABS: Phosphorus 2.5 mg/dL (2.5-4.9); Potassium 3.6 mEq/L (3.5-5.1)
[2022-12-26] MEDS: DULERA 200/5 (MOMETASONE/FORMOTEROL) INHALER IH SCH (08:11)
[2022-12-26] MEDS: MIDODRINE HCL 5 MG TABLET PO SCH (08:13)
[2022-12-26] MEDS: PANTOPRAZOLE 40MG TABLET PO SCH (08:13)
[2022-12-26] MEDS: THIAMINE 200 MG/2 ML INJ IVP SCH (08:13)
[2022-12-26] MEDS: APIXABAN 5 MG TABLET PO SCH (08:14)
[2022-12-26] MEDS: MEMANTINE HCL 10 MG TABLET PO SCH (08:14)
[2022-12-26] MEDS: ENSURE ENLIVE 237 ML CAN PO SCH (08:15)
[2022-12-26 08:28] VITALS: O2SAT 94
[2022-12-26 08:47] VITALS: TEMP 97
[2022-12-26] MEDS ORDERED: levoFLOXacin 750 MG TAB PO SCH (09:00)
[2022-12-26] MEDS: FOLIC ACID 1 MG in NA CHLORIDE 0.9% 50 ML IV SCH (09:23)
[2022-12-26 11:00] VITALS: BP 94/56
== END 2022-12-26 11:39 | disposition home or self-care (01) | DRG 871 ==
LOC: ER 20:26 → ERHOLD 22:26 → 2ND 22:56
PROVIDERS: ADMIT Internal Medicine Sleep Medicine; ATTEND Internal Medicine Sleep Medicine
DX: A41.9 Sepsis, unspecified organism (principal); J18.9 Pneumonia, unspecified organism; J96.11 Chronic respiratory failure with hypoxia; J43.9 Emphysema, unspecified; F10.20 Alcohol dependence, uncomplicated; I48.91 Unspecified atrial fibrillation; J47.9 Bronchiectasis, uncomplicated; F17.200 Nicotine dependence, unspecified, uncomplicated; Z92.3 Personal history of irradiation; Z79.01 Long term (current) use of anticoagulants; Z92.21 Personal history of antineoplastic chemotherapy; Z79.52 Long term (current) use of systemic steroids; Z99.81 Dependence on supplemental oxygen; Z86.711 Personal history of pulmonary embolism; Z85.118 Personal history of other malignant neoplasm of bronchus and lung; Z79.899 Other long term (current) drug therapy
CPT/HCPCS: 36415; 71045; 71275; 80048; 80076; 83605; 83690; 83735; 83880; 84100; 84132; 84484; 85025; 85610; 87040; 87205; 94010; 94760; 99285; J1200; J2405; J2543; J2920; J3010; J3411; J3535; J7030; J7614; J7644; Q9967

== ENCOUNTER 2023-04-08 07:20 | Emergency (ER) | payer OTHER ==
--- OUTSIDE RECORDS SUMMARY | 2023-04-08 07:24 | XMS REPORT | Clinical Summary ---
:1955 Author Organization [facility] Address [address] [place] [address] Care Team Providers Name Role Phone Carl Jones MD Unavailable Henrique Plasencia MD Primary Care Provider Kang Piedra MD Unavailable Mary Beth Hinson [facility] SUPPORT MANAGER Unavailable Unavailable Clay Hernandez MD Unavailable Kang Monreal MD Unavailable Patrick Huerta MD Unavailable Allergies No known active allergies [...] mouth daily. Aspiration into lower respiratory tract budesonide Inhale 0.25 mg by 0 A ctive (PULMICORT) 0.25 nebulization daily. mg/2 mL nebulizer solutionIndications: severe chronic obstructive pulmonary disease umeclidinium-vilante Inhale by mouth. 0 Active roL 62.5-25 mcg/actuation dsdv loperamide (IMODIUM) Take 1 capsule (2 0 02/27/2021 Active 2 mg mg) by mouth every 8 capsuleIndications: (eight) hours as Aspiration into needed for diarrhea. lower respiratory Buy over the counter tract Additional Information Patient not taking. Reason: [...] MOUTH DAILY Aspiration into lower respiratory tract memantine (NAMENDA) 10 mg TAKE 1 TABLET(10 [...] APN). Additional Information Patient not taking. Reason: Not available, Reported on 01/22/2023 ipratropium-albuterol (DUO-NEB) Inhale 1 vial (3 mL) [...] mouth daily. respiratory infection, not otherwise specified amoxicillin-clavulanate Take 1 tablet (875 14 tablet 0 022 Active (Augmentin) 875 mg-125 mg per mg) by mouth [...] Reported on 09/13/2022 midodrine Take 1 tablet 0 05/13/2022 Activ e (PROAMATINE) 5 mg (5 mg) by mouth tablet twice daily. amitriptyline AT BEDTIME 0 12/23/2022 Acti ve (ELAVIL) 25 mg tablet Advair Diskus 250-50 as needed. 0 12/05/2022 Active mcg/dose diskus inhaler Eliquis 5 mg Take 1 tablet 60 tablet 5 01/22/2023 Ac tive tabletIndications: (5 mg) by mouth Small cell carcinoma, every 12 NOS of upper lobe, (twelve) hours. lung <Right> acetaminophen-codeine Take 1 tablet 90 tablet 0 01/22/2023 Active (Tylenol-Codeine #3) by mouth 3 300 mg-30 mg (three) times a tabletIndications: day as needed Small cell carcinoma, for moderate NOS of upper lobe, pain. lung <Right> atorvastatin Take 40 mg by 0 Dis continued (Not (LIPITOR) 40 mg mouth daily. 023 A pplicable) tablet nystatin (MYCOSTATIN) Take 5 mL 0 05/02/2022 Discontinued (Not 100,000 units/mL (500,000 Units) 023 Applicable) suspension by mouth every 8 (eight) hours. amoxicillin-clavulana Take 1 tablet 20 tablet 0 06/07/202218/08 te (AUGMENTIN) 875 (875 mg) by 022 mg-125 mg per mouth twice tabletIndications: daily for 10 Small cell carcinoma, days. NOS of upper lobe, lung <Right> HYDROcodone-acetamino Take 1 tablet 60 tablet 0 06/07/202201/29 phen ([place]) 5 mg-325 by mouth every 023 mg per 8 (eight) hours tabletIndications: as needed for Small cell carcinoma, moderate pain NOS of upper lobe, for up to 30 lung <Right> days. Eliquis 5 mg tablet Take 1 tablet 0 09/02/202201/22 Discontinued (5 mg) by mouth 023 (Reo rder) twice daily. 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 Overview: Added automatically from request for roas maria shah [id number] Family education about pain management 05/08/2021 History of radiation therapy 02/16/2021 Pressure-induced deep tissue damage of other site 02/2021 Overview: Site: Coccyx Sepsis 01/04/2021 Pulmonary embolism 11/17/2020 Stage 1 pressure ulcer of other site 11/14/2020 Overview: Left ear- stage 1-inoculator related from nasal cannula Tube feeding diet [...] 08/10/2020 Decompensated COPD with acute exacerbation 07/30/2020 supervisor intermediates current use of opiate analgesic 07/30/2020 Small [...] Encounters Date Type Specialty Care Team Description 03/31/2023 Telemedicine Thoracic Medicine Олег Clark APRN 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 03/28/2023 Orders Only Thoracic Medicine Henrique Plasencia MD carcinoma of up per lobe of right l epifanio (Primary Dx) 03/26/2023 Telephone Thoracic Medicine Lisa Acevedo RN 03/17/2023 Telemedicine Thoracic Medicine Олег Clark cell Stella, SUPERVISOR [employer]SEM[employer] ROOM carcinoma, N OS of upper lobe, barbie g <Right> 03/16/2023 Orders Only Thoracic Medicine Stella Clark, SUPERVISOR [employer]SEM[employer] ROOM 03/10/2023 Orders Only Thoracic Medicine Олег Clark Stella, SUPERVISOR ASSEM[employer] ROOM carcinoma, N OS of upper lobe, barbie g <Right> (Primar y Dx) 03/06/2023 Orders Only Thoracic Medicine Олег Clark Stella, SUPERVISOR ASSEM[employer] ROOM carcinoma, N OS of upper lobe, barbie g <Right> (Primar y Dx) 03/06/2023 Nurse Triage Aletha Peña, SHANNEN 01/22/2023 Follow-Up Thoracic Medicine Henrique Plasencia MD carcinoma, NOS of upper lobe, barbie g <Right> 01/22/2023 Hospital Encounter Lab Олег Campbell l Grey C, PA carcinoma, NO S of upper lobe, barbie g <Right> 01/22/2023 Hospital Encounter Radiology Олег Campbell benita l Grey C, PA carcinoma, NO S of upper lobe, barbie g <Right> 01/22/2023 Travel 01/08/2023 Telephone Thoracic Medicine Daisy Shaffer RN 12/25/2022 Telephone Thoracic Medicine Enriqueta Gonzalez RN 12/24/2022 Telephone Thoracic Medicine Lisa Acevedo RN 12/20/2022 Telephone Thoracic Medicine Zulema Cedillo RN 12/14/2022 Documentation Thoracic Medicine Henrique Plasencia MD 12/13/2022 Orders Only Thoracic Medicine Олег [place] cell Grey C, PA carcinoma, NO S of upper lobe, barbie g <Right> (Primar y Dx) 11/19/2022 Orders Only Thoracic Medicine Alex Amor, PharmD 09/13/2022 Follow-Up Thoracic Medicine Henrique Plasencia MD carcinoma, NOS of upper lobe, barbie g <Right> 09/13/2022 Ancillary Procedure Radiology Олег Clark ll Stella, SUPERVISOR [employer] ROOM carcinoma, N OS of upper lobe, barbie g <Right> 09/13/2022 Hospital Encounter Lab Henrique Plasencia MD carcinoma, NOS of upper lobe, barbie g <Right> 09/13/2022 Orders Only Thoracic Medicine Олег Clark cell Stella, SUPERVISOR [employer] ROOM carcinoma, N OS of upper lobe, barbie g <Right> (Primar y Dx) 09/13/2022 Travel 09/05/2022 Orders Only Thoracic Medicine Олег Clark Stella, SUPERVISOR [employer] ROOM carcinoma, N OS of upper lobe, barbie g <Right> (Primar y Dx) 08/29/2022 Telephone Thoracic Medicine Liz Akhtar Shortn ess of Breath RN (/) 06/19/2022 Orders Only Thoracic Medicine Henrique Plasencia MD 06/07/2022 Follow-Up Thoracic Medicine Henrique Plasencia MD carcinoma, NOS of upper lobe, barbie g <Right> 06/07/2022 Hospital Encounter Lab Олег Clark benita l Stella, SUPERVISOR [employer]SEM[employer] ROOM carcinoma, N OS of upper lobe, barbie g <Right> 06/07/2022 Ancillary Procedure Radiology Олег Clark ce ll Stella, SUPERVISOR [employer]SEM[employer] ROOM carcinoma, N OS of upper lobe, barbie g <Right> 06/07/2022 Orders Only Thoracic Medicine Stella Clark SUPERVISOR ASSEM[employer] ROOM 06/07/2022 Orders Only Thoracic Medicine Henrique Plasencia MD 06/07/2022 Travel 05/09/2022 Telephone Thoracic Surgery Inez Sanon, RN 05/03/2022 Orders Only Thoracic Medicine Олег Clarkbeth, SUPERVISOR [employer] ROOM carcinoma, N OS of upper lobe, barbie g <Right> (Primar y Dx) 05/03/2022 Telephone Thoracic Medicine Zulema Cedillo RN after 04/08/2022 Immunizations Name Administration Dates Next Due Bamlanivimab 07/29/2020 () Influenza Split High Dose Preservative 03/29/2020 Free IM Pneumococcal Polysaccharide 03/24/2022 Zoster Recombinant 03/29/2020 remdesivir 08/22/2020, 08/22/2020, 08/21/2020, 08/20/2020, 08/19/2020, 08/18/2020, 08/03/2020, 08/02/2020, 08/02/2020, 08/01/2020, 07/31/2020, 07/30/2020 Surgical History Surgery Date Site/Laterality Comments NH EGD BALLOON DILATION 09/29/2020 Esophagus/N/A Procedur e: UPPER ESOPHAGUS <30 MM DIAM GASTROINTE STINAL ENDOSCOPY WITH BALLOON DILATION OF ESOPHAGUS; Surgeon: Owen villela MD; Location: MAIN E NDOSCOPY; Service: GASTROE NTEROLOGY NH EGD PERCUTANEOUS 09/29/2020 Abdomen/N/A Procedure: U PPER PLACEMENT GASTROSTOMY TUBE GASTR OINTESTINAL ENDOSCOPY WITH DIRECTED PLACEME NT OF PERCUTANEOUS (PE G) GASTROSTOMY TUBE; Surgeon: Desiree Leonard MD; Location: MAIN E NDOSCOPY; Service: GASTROE NTEROLOGY NH BRNCHSC W/BRNCL ALVEOLAR 10/23/2020 N/A Proc edure: FLEXIBLE LAVAGE BRONCHOSCOPY WIT H BRONCHIAL ALVEOLAR LAVAGE; Surgeon: Krys Brewer MD; Lo cation: MAIN PULM PROC; Servi ce: PULMONARY NH PERQ REPLACEMENT GTUBE 05/21/2021 N/A Proced ure: REPLACEMENT OF NOT REQ REVJ GSTRST TRC GASTROST RANDEE TUBE, PERCUTANEOUS, INCLUDES REMOVAL , WHEN PERFORMED, WITHO UT IMAGING OR ENDOSCOPIC DENNIS NCE; NOT REQUIRING REVISI ON OF GASTROSTOMY TRAC T; Surgeon: Neha Tobin MD ; Location: MAIN ENDOSCOPY; Service: GASTROENTEROLOGY NH EGD TRANSORAL BIOPSY 10/19/2021 Esophagus/N/A Procedur e: [...] Sign Reading Time Taken Comments Blood Pressure 104/65 01/22/2023 2:19 PM CDT Pulse 66 01/22/2023 2:19 PM CDT Temperature 36.5 °C (97.7 °F) 01/22/2023 2:19 PM CDT Respiratory Rate 17 01/22/2023 2:19 PM CDT Oxygen Saturation 96% 01/22/2023 2:19 PM CDT Inhaled Oxygen Concentration - - Weight 44.8 kg (98 lb 12.3 oz) 01/22/2023 2:19 PM CDT Height 163 cm (5' 4.17") 06/07/2022 7:11 AM BRUSH OR BROOM CUTTER Body Mass Index 16.86 06/07/2022 7:11 AM BRUSH OR BROOM CUTTER Plan of Treatment Date Type Specialty Care Team Description 04/22/2023 Ancillary Procedure Radiology Fr yaron Plasencia MD [address] [place], [place] [address] (Wo rk) 04/22/2023 Appointment Lab Nina Clark APRN [address], [place] [address] (Wo rk) 04/22/2023 Follow-Up Thoracic Medicine John Plasencia MD [address] [place], [place] [address] (Wo rk) Health Maintenance Due Date Last Done Comments COVID-19 Vaccination (#1) 11/23/1960 Procedures Procedure Name Priority Date/Time Associated Comments Diagnosis CT CHEST W CONTRAST Routine 01/22/2023 10:49 Small cell Resu lts for this AM CDT carcinoma, NOS of procedure are in upper lobe, lung the results <Right> section. FRACTIONATED BILIRUBIN Routine 01/22/2023 9:24 Small cell Re sults for this AM CDT carcinoma, NOS of procedure are in upper lobe, lung the results <Right> section. TOTAL PROTEIN Routine 01/22/2023 9:24 Small cell Results for this AM CDT carcinoma, NOS of procedure are in upper lobe, lung the results <Right> section. ASPARTATE Routine 01/22/2023 9:24 Small cell Results for this AMINOTRANSFERASE AM CDT carcinoma, NOS of proced ure are in upper lobe, lung the results <Right> section. ALANINE AMINOTRANSFERASE Routine 01/22/2023 9:24 Small cell Results for this AM CDT carcinoma, NOS of procedure are in upper lobe, lung the results <Right> section. ALKALINE PHOSPHATASE Routine 01/22/2023 9:24 Small cell Resu lts for this AM CDT carcinoma, NOS of procedure are in upper lobe, lung the results <Right> section. ALBUMIN LEVEL Routine 01/22/2023 9:24 Small cell Results for this AM CDT carcinoma, NOS of procedure are in upper lobe, lung the results <Right> section. CALCIUM LEVEL TOTAL Routine 01/22/2023 9:24 Small cell Resul ts for this AM CDT carcinoma, NOS of procedure are in upper lobe, lung the results <Right> section. .GLOMERULAR FILTRATION Routine 01/22/2023 9:24 Small cell Re sults for this RATE AM CDT carcinoma, NOS of procedure are in upper lobe, lung the results <Right> section. SERUM CREATININE Routine 01/22/2023 9:24 Small cell Results for this AM CDT carcinoma, NOS of procedure are in upper lobe, lung the results <Right> section. ELECTROLYTE PANEL Routine 01/22/2023 9:24 Small cell Results for this AM CDT carcinoma, NOS of procedure are in upper lobe, lung the results <Right> section. BLOOD UREA NITROGEN Routine 01/22/2023 9:24 Small cell Resul ts for this AM CDT carcinoma, NOS of procedure are in upper lobe, lung the results <Right> section. GLUCOSE LEVEL Routine 01/22/2023 9:24 Small cell Results for this AM CDT carcinoma, NOS of procedure are in upper lobe, lung the results <Right> section. MANUAL DIFFERENTIAL Routine 01/22/2023 9:24 Small cell Resul ts for this AM CDT carcinoma, NOS of procedure are in upper lobe, lung the results <Right> section. Results CBC Routine 01/22/2023 9:24 Small cell Results for this AM CDT carcinoma, NOS of procedure are in upper lobe, lung the results <Right> section. COMPREHENSIVE METABOLIC Routine 01/22/2023 9:24 Small cell PANEL AM CDT carcinoma, NOS of upper lobe, lung <Right> COMPLETE BLOOD COUNT W/ Routine 01/22/2023 9:24 Small cell DIFFERENTIAL AM CDT carcinoma, NOS of upper lobe, lung <Right> POC CREATININE Routine 01/22/2023 9:19 Results fo r this AM CDT procedure are i n the results section. CT CHEST W CONTRAST Routine 09/13/2022 8:57 [...] 9:54 Small cell Results for this AM BRUSH OR BROOM CUTTER carcinoma, NOS of procedure are in upper lobe, lung the results <Right> section. FRACTIONATED BILIRUBIN Routine 06/07/2022 9:54 Small cell Re sults for this AM BRUSH OR BROOM CUTTER carcinoma, NOS of procedure are in upper lobe, lung the results <Right> section. TOTAL PROTEIN Routine 06/07/2022 9:54 Small cell Results for this AM BRUSH OR BROOM CUTTER carcinoma, NOS of procedure are in upper lobe, lung the results <Right> section. ASPARTATE Routine 06/07/2022 9:54 Small cell Results for this AMINOTRANSFERASE AM BRUSH OR BROOM CUTTER carcinoma, NOS of proced ure are in upper lobe, lung the results <Right> section. ALANINE AMINOTRANSFERASE Routine 06/07/2022 9:54 Small cell Results for this AM BRUSH OR BROOM CUTTER carcinoma, NOS of procedure are in upper lobe, lung the results <Right> section. ALKALINE PHOSPHATASE Routine 06/07/2022 9:54 Small cell Resu lts for this AM BRUSH OR BROOM CUTTER carcinoma, NOS of procedure are in upper lobe, lung the results <Right> section. ALBUMIN LEVEL Routine 06/07/2022 9:54 Small cell Results for this AM BRUSH OR BROOM CUTTER carcinoma, NOS of procedure are in upper lobe, lung the results <Right> section. CALCIUM LEVEL TOTAL Routine 06/07/2022 9:54 Small cell Resul ts for this AM BRUSH OR BROOM CUTTER carcinoma, NOS of procedure are in upper lobe, lung the results <Right> section. .GLOMERULAR FILTRATION Routine 06/07/2022 9:54 Small cell Re sults for this RATE AM BRUSH OR BROOM CUTTER carcinoma, NOS of procedure are in upper lobe, lung the results <Right> section. SERUM CREATININE Routine 06/07/2022 9:54 Small cell Results for this AM BRUSH OR BROOM CUTTER carcinoma, NOS of procedure are in upper lobe, lung the results <Right> section. BLOOD UREA NITROGEN Routine 06/07/2022 9:54 Small cell Resul ts for this AM BRUSH OR BROOM CUTTER carcinoma, NOS of procedure are in upper lobe, lung the results <Right> section. GLUCOSE LEVEL Routine 06/07/2022 9:54 Small cell Results for this AM BRUSH OR BROOM CUTTER carcinoma, NOS of procedure are in upper lobe, lung the results <Right> section. MANUAL DIFFERENTIAL Routine 06/07/2022 9:54 Small cell Resul ts for this AM BRUSH OR BROOM CUTTER carcinoma, NOS of procedure are in upper lobe, lung the results <Right> section. Results CBC Routine 06/07/2022 9:54 Small cell Results for this AM BRUSH OR BROOM CUTTER carcinoma, NOS of procedure are in upper lobe, lung the results <Right> section. URIC ACID Routine 06/07/2022 9:54 Small cell Results for this AM BRUSH OR BROOM CUTTER carcinoma, NOS of procedure are in upper lobe, lung the results <Right> section. THYROID STIMULATING Routine 06/07/2022 9:54 Small cell Resul ts for this HORMONE AM BRUSH OR BROOM CUTTER carcinoma, NOS of procedure are in upper lobe, lung the results <Right> section. TOTAL T3 Routine 06/07/2022 9:54 Small cell Results for this AM BRUSH OR BROOM CUTTER carcinoma, NOS of procedure are in upper lobe, lung the results <Right> section. MAGNESIUM LEVEL Routine 06/07/2022 9:54 Small cell Results f or this AM BRUSH OR BROOM CUTTER carcinoma, NOS of procedure are in upper lobe, lung the results <Right> section. FREE THYROXINE Routine 06/07/2022 9:54 Small cell Results fo r this AM BRUSH OR BROOM CUTTER carcinoma, NOS of procedure are in upper lobe, lung the results <Right> section. COMPREHENSIVE METABOLIC Routine 06/07/2022 9:54 Small cell PANEL AM BRUSH OR BROOM CUTTER carcinoma, NOS of upper lobe, lung <Right> COMPLETE BLOOD COUNT W/ Routine 06/07/2022 9:54 Small cell DIFFERENTIAL AM BRUSH OR BROOM CUTTER carcinoma, NOS of upper lobe, lung <Right> PETCT SUBSEQUENT Routine 06/07/2022 9:27 Small cell Results for this TREATMENT STRATEGY AM BRUSH OR BROOM CUTTER carcinoma, NOS of proc edure are in upper lobe, lung the results <Right> section. after 04/08/[address] Chest with Contrast (01/22/2023 10:49 AM CDT)Only the most recent of2 results within the time period is included. Anatomical Region Laterality Modality Chest Computed Tomography Specimen (Source) Anatomical Collection Method Collection Time Re ceived Time Location / / Volume Laterality 01/22/2023 3:24 PM CDT Impressions 01/22/2023 3:52 PM CDT Posttreatment changes in the right upper lobe. There are new subpleural opacities in th e left upper lobe and atelectatic changes in the lingula consistent with inflammatory infectious process. Dense opacity in the right apex is unchanged. No adenopathy. ACTIONABLE ITEMS/RECOMMENDATIONS: None. Narrative 01/22/2023 3:52 PM CDT FULL RESULT: Examination: CT CHEST W CONTRAST on 01/22 10:49 AM. CLINICAL HISTORY: Small cell carcinoma, NOS of upper lobe, lung <Right> INDICATION: Lung cancer, surveillance, S mall cell carcinoma, T1-N0 small cell lung cancer. COMPARISON: 09/13/2022. Technique: CT of the chest is performed with intravenous contrast Findings: Lungs/Airways/Pleura: Extensive emphysem atous changes of the lungs. Dense consolidative opacity in the periphery of the right upper lobe consistent with post radiation changes is again identified. There is a stable central area of cavitation. Subpleural opacities in the left upper l obe on images 62, 68, 80 are new. New atelectatic changes in the lingula. The opacities in the right lower lobe on images 92, 93 and in the left lower lobe on image 118 are stable from 06/07/2022. Stable dense opacity in the right apex o n image 20 that was FDG avid on PET/CT 06/07/2022. This opacity is stable at least from 11/20/2020. Lower Neck/Mediastinum/Nodes/Heart: Stab le 5 mm right supraclavicular lymph node on image 18. Unchanged 0.9 cm right paratracheal lymph node on image 23. No hilar or axillary adenopathy. Moderate coronary artery calcification is present. New small left pleural effusion. Upper Abdomen: No suspicious lesions in the spleen or adrenal glands. The liver is within normal limits. No hydronephrosis. Bones/Soft Tissues: There are degenerati ve changes of the spine. Procedure Note Bonny Chadwick MD - 01/23/20 23 FULL RESULT: Examination: CT CHEST W CONTRAST on 01/22 10:49 AM. CLINICAL HISTORY: Small cell carcinoma, NOS of upper lobe, lung <Right> INDICATION: Lung cancer, surveillance, S mall cell carcinoma, T1-N0 small cell lung cancer. COMPARISON: 09/13/2022. Technique: CT of the chest is performed with intravenous contrast Findings: Lungs/Airways/Pleura: Extensive emphysem atous changes of the lungs. Dense consolidative opacity in the periphery of the right upper lobe consistent with post radiation changes is again identified. There is a stable central area of cavitation. Subpleural opacities in the left upper l obe on images 62, 68, 80 are new. New atelectatic changes in the lingula. The opacities in the right lower lobe on images 92, 93 and in the left lower lobe on image 118 are stable from 06/07/2022. Stable dense opacity in the right apex o n image 20 that was FDG avid on PET/CT 06/07/2022. This opacity is stable at least from 11/20/2020. Lower Neck/Mediastinum/Nodes/Heart: Stab le 5 mm right supraclavicular lymph node on image 18. Unchanged 0.9 cm right paratracheal lymph node on image 23. No hilar or axillary adenopathy. Moderate coronary artery calcification is present. New small left pleural effusion. Upper Abdomen: No suspicious lesions in the spleen or adrenal glands. The liver is within normal limits. No hydronephrosis. Bones/Soft Tissues: There are degenerati ve changes of the spine. IMPRESSION: Posttreatment changes in the right upper lobe. There are new subpleural opacities in th e left upper lobe and atelectatic changes in the lingula consistent with inflammatory infectious process. Dense opacity in the right apex is unchanged. No adenopathy. ACTIONABLE ITEMS/RECOMMENDATIONS: None. [facility] IMG CT ORDERABLES .Serum Creatinine (01/22/2023 9:24 AM CDT)Only the most recent of3 resultswithin the time period is included. P athologist Signature Creatinine 0.68 0.67 - 1.17 [facility] mg/dL DIAGNOSTIC CENTER Specimen Anatomical Collection Method Collection Time Receive d Time (Source) Location / / Volume Laterality Blood 01/22/2023 9:24 AM 3 CDT 10:28 AM CDT [facility] LAB BLOOD ORDERABLES Performing Organization Address City/State/ZIP Code Phon e Number [facility] DIAGNOSTIC Unless otherwise noted, [place], [place] [address] CENTER all lab tests performed by: Division of Pathology and Laboratory Medicine [address] (ABNORMAL) .CBC (01/22/2023 9:24 AM CDT)Only the most recent of3 resultswithin the time period is included. Analysis Performed At Patho logist Time Signature WBC 10.4 4.1 - 10.5 [facility] K/uL DIAGNOSTIC CENTER RBC 3.73 (L) 4.30 - [facility] 6.04 M/uL DIAGNOSTIC CENTER Hgb 11.7 (L) 13.3 - [facility] 17.4 gm/dL DIAGNOSTIC CENTER Hct 35.1 (L) 39.5 - [facility] 51.8 % DIAGNOSTIC CENTER MCV 94 82 - 99 fL [facility] DIAGNOSTIC CENTER MCH 31.4 26.6 - [facility] 33.2 pg DIAGNOSTIC CENTER MCHC 33.3 31.1 - [facility] 35.2 gm/dL DIAGNOSTIC CENTER RDW-SD 51.5 (H) 37.5 - [facility] 49.7 fL DIAGNOSTIC CENTER RDW-CV 14.9 11.6 - [facility] 15.5 % DIAGNOSTIC CENTER Platelet count 337 160 - 397 [facility] K/uL DIAGNOSTIC CENTER MPV 9.9 9.1 - 12.6 [facility] [place] fL DIAGNOSTIC CENTER INRBC 0.0 0.0 - 0.1 [facility] /100 WBC DIAGNOSTIC CENTER Comment: The INRBC (instrument NRBC) value [...] (Source) Location / / Volume Laterality Blood 01/22/2023 9:24 AM 3 CDT 10:15 AM CDT [facility] LAB BLOOD ORDERABLES Performing Organization Address City/State/ZIP Code Phon e Number [facility] DIAGNOSTIC Unless otherwise noted, [place], [place] [address] CENTER all lab tests performed by: Division of Pathology and Laboratory Medicine [address] [place] Glomerular Filtration Rate (01/22/2023 9:24 AM CDT)Only the most recent of3 resultswithin the time period is included. P athologist Signature eGFR 101 >=60 [facility] mL/min/1.73 DIAGNOSTIC sq. m CENTER Comment: The eGFRcr is calculated with the [...] G1 nor G2 fulfill criteria for CKD. Specimen Anatomical Collection Method Collection Time Receive d Time (Source) Location / / Volume Laterality Blood 01/22/2023 9:24 AM 3 CDT 10:28 AM CDT [facility] LAB BLOOD ORDERABLES Performing Organization Address [facility] Phon e Number [facility] DIAGNOSTIC Unless otherwise noted, [address] all lab tests performed by: Division of Pathology and Laboratory Medicine [address] [place] [address] Fractionated Bilirubin (01/22/2023 9:24 AM CDT)Only the most recent of3 results within the time period is included. [facility] Bili Total <0.3 <=1.2 mg/dL [facility] Comment: Direct and indirect bilirubin [...] (Source) Location / / Volume Laterality Blood 01/22/2023 9:24 AM 3 CDT 10:28 AM CDT [facility] LAB BLOOD ORDERABLES Performing Organization Address [facility] Phon e Number [facility] DIAGNOSTIC Unless otherwise noted, [address] all lab tests performed by: Division of Pathology and Laboratory Medicine [address] [place] [address] Differential (01/22/2023 9:24 AM CDT)Only the most recent of3 resultswithin the time period is included. [facility] Neutrophil % 65.7 43.2 - 72.7 [facility] Lymphocyte % 24.7 16.8 - 46.2 [facility] Monocyte % 6.7 5.1 - 12.5 [facility] Eosinophil % 2.1 0.4 - 6.3 % [facility] Basophil % 0.5 0.2 - 1.4 % [facility] IGRE % 0.3 0.1 - 1.5 % [facility] Comment: IGRE % count includes Metamyelo cytes, Myelocytes, and Promyelocytes. Neutrophil Abs 6.82 1.95 - 7.25 K/uL [place] [facility] Lymphocyte Abs 2.56 1.01 - 3.24 K/uL [place] MD VIL[place]LA [facility] Monocyte Abs 0.70 0.24 - 0.85 K/uL [place] MD [facility] Eosinophil Abs 0.22 0.02 - 0.50 K/uL [place] MD [facility] [place] Basophil Abs 0.05 0.02 - 0.09 K/uL [place] [facility] IG Abs 0.03 0.01 - 0.12 K/uL [place] MD AN[facility] Specimen Anatomical Collection Method Collection Time Receive d Time (Source) Location / / Volume Laterality Blood 01/22/2023 9:24 AM 3 CDT 10:15 AM CDT Grey [facility] LAB BLOOD ORDERABLES Performing Organization Address [facility] Phon e Number [facility] DIAGNOSTIC Unless otherwise noted, [address] all lab tests performed by: Division of Pathology and Laboratory Medicine [address] [place] [address] BUN (01/22/2023 9:24 AM CDT)Only the most recent of3 resultswithin the time period is included. athologist Signature BUN 9 6 - 23 [facility] mg/dL [facility] Specimen Anatomical Collection Method Collection Time Receive d Time (Source) Location / / Volume Laterality Blood 01/22/2023 9:24 AM 3 CDT 10:28 AM CDT [facility] LAB BLOOD ORDERABLES Performing Organization Address [facility] Phon e Number [facility] DIAGNOSTIC Unless otherwise noted, [address] all lab tests performed by: Division of Pathology and Laboratory Medicine [address] [place] [address] ALT (01/22/2023 9:24 AM CDT)Only the most recent of3 resultswithin the time period is included. athologist Signature ALT <5 <=41 U/L [facility] Specimen Anatomical Collection Method Collection Time Receive d Time (Source) Location / / Volume Laterality Blood 01/22/2023 9:24 AM 3 CDT 10:28 AM CDT [facility] [place] LAB BLOOD ORDERABLES Performing Organization Address City/[facility] Phon e Number [facility] DIAGNOSTIC Unless otherwise noted, [address] all lab tests performed by: Division of Pathology and Laboratory Medicine [address] [place] Aspartate Aminotransferase (01/22/2023 9:24 AM CDT)Only the most recent of3 resultswithin the time period is included. P athologist Signature AST 12 <=40 U/L [facility] Specimen Anatomical Collection Method Collection Time Receive d Time (Source) Location / / Volume Laterality Blood 01/22/2023 9:24 AM 3 CDT 10:28 AM CDT [facility] LAB BLOOD ORDERABLES Performing Organization Address [facility] Phon e Number [facility] DIAG[facility]IC Unless otherwise noted, [address] all lab tests performed by: Division of Pathology and Laboratory Medicine [address] [place] Total Protein (01/22/2023 9:24 AM CDT)Only the most recent of3 resultswithin the time period is included. athologist [facility] Total Protein 6.7 6.4 - 8.3 [facility] g/dL [facility] Specimen Anatomical Collection Method Collection Time Receive d Time (Source) Location / / Volume Laterality Blood 01/22/2023 9:24 AM 3 CDT 10:28 AM CDT [facility] LAB BLOOD ORDERABLES Performing Organization Address [facility] Phon e Number [facility] DIAG[facility]STIC Unless otherwise noted, [place] [address] [place] all lab tests performed by: Division of Pathology and Laboratory Medicine [address] [place] Alkaline Phosphatase (01/22/2023 9:24 AM CDT)Only the most recent of3 results within the time period is included. P athologist Signature Alk Phos 75 40 - 129 [facility] U/L [facility] Specimen Anatomical Collection Method Collection Time Receive d Time (Source) Location / / Volume Laterality Blood 01/22/2023 9:24 AM 3 CDT 10:28 AM CDT [facility] LAB BLOOD ORDERABLES Performing Organization Address [facility]/ZIP Code Phon e Number [facility] DIAGNOSTIC Unless otherwise noted, [address] all lab tests performed by: Division of Pathology and Laboratory Medicine [address] [place] Glucose Level (01/22/2023 9:24 AM CDT)Only the most recent of3 resultswithin the time period is included. athologist Signature Glucose Level 74 70 - 99 [facility] mg/dL [facility] Comment: Effective 01/24/16, the glucose reference intervals have been updated based on [place] Diabetes [employer] guidelines (Standards of Medical Care [...] (Source) Location / / Volume Laterality Blood 01/22/2023 9:24 AM 3 CDT 10:28 AM CDT [facility] [place] LAB BLOOD ORDERABLES Performing Organization Address City/State/ZIP Code Phon e Number [facility] DIAGNOSTIC Unless otherwise noted, [address] all lab tests performed by: Division of Pathology and Laboratory Medicine [address] [place] Calcium Level (01/22/2023 9:24 AM CDT)Only the most recent of3 resultswithin the time period is included. athologist Signature Calcium Lvl 9.1 8.4 - 10.2 [facility] mg/dL [facility] Specimen Anatomical Collection Method Collection Time Receive d Time (Source) Location / / Volume Laterality Blood 01/22/2023 9:24 AM 3 CDT 10:28 AM CDT [facility] [place] LAB BLOOD ORDERABLES Performing Organization Address City/State/ZIP Code Phon e Number [facility] DIAG[facility]STIC Unless otherwise noted, [address] all lab tests performed by: Division of Pathology and Laboratory Medicine [address] [place] Albumin Level (01/22/2023 9:24 AM CDT)Only the most recent of3 resultswithin the time period is included. athologist [facility] Albumin Lvl 3.8 3.5 - 5.2 [facility] gm/dL [facility] Specimen Anatomical Collection Method Collection Time Receive d Time (Source) Location / / Volume Laterality Blood 01/22/2023 9:24 AM 3 CDT 10:28 AM CDT [facility] [place] LAB BLOOD ORDERABLES Performing Organization Address City/[facility] Phon e Number [facility] DIAGNOSTIC Unless otherwise noted, [address] all lab tests performed by: Division of Pathology and Laboratory Medicine [facility] [place] (ABNORMAL) Electrolyte Panel (01/22/2023 9:24 AM CDT)Only the most recent of3 resultswithin the time period is included. athologist [facility] Sodium Lvl 136 136 - 145 [facility] mEq/L [facility] Potassium Lvl 3.5 3.5 - 5.1 [facility] mEq/L DIAGNOSTIC [place] Chloride 100 98 - 107 [facility] mEq/L [facility] CO2 32 (H) 22 - 29 [facility] mEq/L [facility] Anion Gap 4 4 - 14 [facility] mEq/L [facility] Specimen Anatomical Collection Method Collection Time Receive d Time (Source) Location / / Volume Laterality Blood 01/22/2023 9:24 AM 3 CDT 10:28 AM CDT [facility] [place] LAB BLOOD ORDERABLES Performing Organization Address [facility] Phon e Number [facility] DIAGNOSTIC Unless otherwise noted, [address] all lab tests performed by: Division of Pathology and Laboratory Medicine [facility] [place] (ABNORMAL) POC Creatinine (01/22/2023 9:19 AM CDT)Only the most recent of2 resultswithin the time period is included. athologist [facility] POC Crea 0.5 (L) 0.6 - 1.3 POC [facility] mg/dL Comment: [...] concentration by an electrochemical assay. POC EGFR 111 >=60 mL/min/1.73 sq. m POC [facility] [...] Clean Dev Yes POC [facility] Performing Lab [facility] POC TELCO R Comment: [facility], [address] [place] [address], [place] [address]; Lab Direct or: Karma Arciniega MD; Waived Point of Care Testing - Rosina Parikh MD Specimen Anatomical Collection Method Collection Time Receive d Time (Source) Location / / Volume Laterality Blood 01/22/2023 9:19 AM 9:19 CDT AM CDT [facility] [place] POCT ORDERABLES - DEVICE Performing Organization Address City/State/ZIP Code Phon e Number POC [facility] Unless otherwise noted, [place] [address] lab tests performed by: Division of Pathology and Laboratory Medicine [address] [place] [address] Uric Acid (06/07/2022 9:54 AM BRUSH OR BROOM CUTTER) athologist Signature Uric Acid 5.3 3.4 - 7.0 [facility] mg/dL Comment: Testing Performed at [facility] Lab Am bulatory Care [facility], [address], [place] [address] Specimen Anatomical Collection Method Collection Time Receive d Time (Source) Location / / Volume Laterality Blood 06/07/2022 9:54 AM 2 BRUSH OR BROOM CUTTER 10:05 AM BRUSH OR BROOM CUTTER Stella Clark APRN LAB BLOOD ORDERABLES Performing Organization Address City/State/ZIP Code Phon e Number [facility] [address] [place] [address] [address] T3 (06/07/2022 9:54 AM BRUSH OR BROOM CUTTER) athologist Signature T3 Total 153 80 - 200 [facility] ng/dL [facility] Specimen Anatomical Collection Method Collection Time Receive d Time (Source) Location / / Volume Laterality Blood 06/07/2022 9:54 AM 2 BRUSH OR BROOM CUTTER 10:53 AM BRUSH OR BROOM CUTTER Stella Clark APRN LAB BLOOD ORDERABLES Performing Organization Address City/State/ZIP Code Phon e Number [facility] CANCER Unless otherwise noted, [place] [address] CENTER all lab tests performed by: Division of Pathology and Laboratory Medicine [address] [place] [address] [place] TSH (06/07/2022 9:54 AM BRUSH OR BROOM CUTTER) athologist [facility] TSH 0.65 0.27 - 4.20 [facility] mcunit/mL Comment: Note: New Methodology and Reference Ra nge change effective 10/16/2017 at 1400 Testing Performed at [facility] Lab Trailer Mechanic [facility], [address], [place] [address] Specimen Anatomical Collection Method Collection Time Receive d Time (Source) Location / / Volume Laterality Blood 06/07/2022 9:54 AM 2 BRUSH OR BROOM CUTTER 10:05 AM BRUSH OR BROOM CUTTER Stella Clark APRN LAB BLOOD ORDERABLES Performing Organization Address City/State/ZIP Code Phon e Number [facility] [address] [place] [address] [address] Free T4 (06/07/2022 9:54 AM BRUSH OR BROOM CUTTER) athologist Signature T4 Free 1.01 0.93 - 1.70 [facility] ng/dL Comment: Testing Performed at [facility] Lab Am bulatory Care [facility], [address], [place] [address] Specimen Anatomical Collection Method Collection Time Receive d Time (Source) Location / / Volume Laterality Blood 06/07/2022 9:54 AM 2 BRUSH OR BROOM CUTTER 10:05 AM BRUSH OR BROOM CUTTER Stellarobert Clrak APRN LAB BLOOD ORDERABLES Performing Organization Address City/[facility]/ZIP Code Phon e Number [facility] [address] [place] [address] [address] Magnesium Level (06/07/2022 9:54 AM BRUSH OR BROOM CUTTER) athologist Signature Magnesium 1.9 1.6 - 2.6 [facility] mg/dL Comment: Testing Performed at [facility] Lab Am [facility] Care [facility], [address], [place] [address] Specimen Anatomical Collection Method Collection Time Receive d Time (Source) Location / / Volume Laterality Blood 06/07/2022 9:54 AM 2 BRUSH OR BROOM CUTTER 10:05 AM BRUSH OR BROOM CUTTER Stella Clark APRN LAB BLOOD ORDERABLES Performing Organization Address City/[facility] e Number [facility] [address] [place] [address] [address] PETCT Subsequent Treatment Strategy (06/07/2022 9:27 AM BRUSH OR BROOM CUTTER) Anatomical Region Laterality Modality Whole Body Positron Emission To mography (PET) Specimen (Source) Anatomical Collection Method Collection Time Re ceived Time Location / / Volume Laterality 06/07/2022 11:01 AM BRUSH OR BROOM CUTTER Impressions 06/07/2022 11:46 AM BRUSH OR BROOM CUTTER 1. No convincing evidence of FDG-avid small cell lung cancer. 2. Bilateral irregular lung opacities wi th some regions demonstrating associated activity show some change in anatomic configuration when compared to 10/15/2021 CT and are compatible with a chronic waxing/waning infectious or inflammatory process. Narrative 06/07/2022 11:46 AM BRUSH OR BROOM CUTTER FULL RESULT: Examination: FDG PET/CT, 06/07/2022 9:27 [...] waxing/waning infectious or inflammatory process. Stella Clark SHANNEN IMG PETCT ORDERABLES after 04/08/2022 Insurance Payer Benefit Plan / Subscriber ID Effective Phone Address T ype Group Dates [facility] [id number] 2020-Prese [address] [address] Medicare MEDICARE MEDICARE [place], [place] ADVANTAGE ADVANTAGE [id number] Guarantor Name Account Type Relation to Date of Phone Billing Patient Address Chato Moreno Personal/Family Self 1955 [id number]) [facility] [address] [phone] 1 (Work) [place] [id number] Chato Moreno Personal/Family Self 1955 [id number] [facility] [address] [place]AH [place] [id number] Advance Directives Code Status Date Activated Date Inactivated Comments Full Code 10/15/2021 2:23 PM 10/24/2021 8:32 PM Code Status Date Activated Date Inactivated Comments Full Code 09/03/2021 10:00 PM 09/07/2021 5:51 PM Full Code 02/16/2021 11:33 PM 03/02/2021 8:45 PM Full Code 01/22/2021 1:08 AM 01/30/2021 8:41 PM Full Code 01/04/2021 3:56 PM 01/19/2021 6:53 PM Care Teams Distribution Sales Representative Relationship Specialty Start Date End Date Carl Jones MD PCP - External Primary Family Practice 02/14/20 [address] [facility] [facility] [place] [address] [place] [address] Henrique Plasencia V., PCP - General Thoracic Medicine 04/21/[address] [place] [id number] Kang Piedra MD PCP - External Follow Dermatology 06/12/[address] [place] [address] [place] [address] Mary Beth Hinson Speech Language Speech Pathology 04/16/21 , [facility] [employer] SUPPORT MANAGER Pathologist [address] [place] [id number] Clay Hernandez MD Consulting Physician Pulmonary Medicine 03/31/[address] [place] [id number] Kang Monreal MD Consulting Physician Hematology and 04/16/[address] [place] [address] [place] [address] Patrick Huerta MD Consulting Physician Dermatology 05/18/[address] [place] [id number]
--- OUTSIDE RECORDS SUMMARY | 2023-04-08 07:37 | XMS REPORT | Continuity of Care Document ---
:1955 Author Organization [facility] t Address [address] [facility]. [address] [place] [address] Care Team Providers Name Role Phone MARIA FERNANDA WASHINGTON Primary Care Physician Unavailable SYSTEM, PROVIDER NOT IN Attending Clinician Unavailable Stella Lima APRN Attending Clinician STELLA LIMA Attending Clinician Unavailable Maria Fernanda Washington MD, V. Attending Clinician Lisa Acevedo RN Attending Clinician Unavailable Aletha Peña APRN Attending Clinician Grey Lobo Attending Clinician GREY LUCIANO Attending Clinician Unavailable MARIA FERNANDA WASHINGTON V. Attending Clinician Unavailable Edmund RN, Daisy Zimmerman Attending Clinician Unavailable Lisa RN, Gurpreet A Attending Clinician Mamadou RN, Zulema Ramírez Attending Clinician Unavailable Alex Amor PharmD Attending Clinician Liz Akhtar RN Attending Clinician Fab RN, Inez Stewart Attending Clinician Lazaro PRIDE Constantine Attending Clinician Ger JARAMILLO, Lolita Sommer Attending Clinician Unavailable Nuvia JARAMILLO, Bibiana Trevino Attending Clinician Unavailable Tyson JARAMILLO, Kasie Lehman Attending Clinician Unavailable Marshall JARAMILLO, Erin Lehman Attending Clinician Nenita CARDENAS, Fito Kapadia Attending Clinician Vlad JARAMILLO, Karishma Mora Attending Clinician Unavailable Bijan CARDENAS, Verónica Attending Clinician Thelma Bowser DO Attending Clinician Judy CARDENAS, Ed Attending Clinician Randa CARDENAS, Tod Cervantes. Attending Clinician Alexus CARDENAS, Boni Carr Attending Clinician [phone] Jackson JARAMILLO, Arcadio Attending Clinician Unavailable BONI OBRIEN Attending Clinician Unavailable Aisha CARDENAS, Edwige Orozco Attending Clinician Jenise Degroot MD Attending Clinician Dhiraj Fry CRNA Attending Clinician Jacquelyn CARDENAS, Shena Gudino Attending Clinician Unavailable TOD GLASS V. Attending Clinician Unavailable JUDY, Attending Clinician Unavailable Shantal Patiño MD, Deshawn Attending Clinician [phone] Dean JARAMILLO, Stella Stewart Attending Clinician Unavailable Ileana Thrasher RN Attending Clinician Unavailable Aisha CARDENAS, Mehrdad Attending Clinician Gurpreet Estes MD Attending Clinician SOFI HART Attending Clinician Unavailable Michael Lopez RN Attending Clinician Unavailable Lela Sanon APN Attending Clinician Tadeo CARDENAS, Herrera Attending Clinician Jacki Campbell Attending Clinician Gucci ROUSSEAU, Sarah Ybarra Attending Clinician Tejinder CARDENAS, Raymundo Attending Clinician Miguel Ángel MOTOR ASSEMBLER, Nicole Hirsch Attending Clinician Jossy CARDENAS, Abdirizak Attending Clinician Jarrett JARAMILLO, Génesis Ann Attending Clinician Unavailable Anais JARAMILLO, Génesis Trevino Attending Clinician Unavailable Andrea MOTOR ASSEMBLER, Jackie Attending Clinician Rob JARAMILLO, Yudith Lehman Attending Clinician Unavailable Crista CARDENAS, Claude Attending Clinician Yannick INSTALL AND REPAIR TECHNICIAN, El[place]ira Zimmerman Attending Clinician Tegan CARDENAS, Giovanna Tanner Attending Clinician Sravan ANN [facility]OT[facility] INSPECTION MECHANIC, Mary Beth Ann Attending Clinician Unavailable Rah CARDENAS, Herrera Attending Clinician Enzo PharmD, Wayne Attending Clinician Brandon JARAMILLO, Juan Lehman Attending Clinician Unavailable Pineda WITT, Gabrielle Owens [...] Unavailable BENEDICTO CORDON Attending Clinician Unavailable RASHAAD PUVRIS Attending Clinician Unavailable TANNER MATHEW Attending Clinician Unavailable BENEDICTO RAMSEY Attending Clinician Unavailable GURPREET ESTES Attending Clinician Unavailable RAYMUNDO MARR Attending Clinician Unavailable RUSSELL GIRALDO Attending Clinician Unavailable JACKSON LIND Attending Clinician Unavailable UNKNOWN, ATTENDING Attending Clinician Unavailable HERRERA WORRELL Attending Clinician Unavailable ROCKY RODRIGUEZ Attending Clinician Unavailable CODY CRANE Attending Clinician Unavailable AURELIANO EDWARD Attending Clinician Unavailable ORACIO REECE Attending Clinician Unavailable WILFREDO OLIVAS Attending Clinician Unavailable MAURICIO MAY Attending Clinician Unavailable HAYLEY TAPIA Attending Clinician Unavailable Dhiraj Jaimes Attending Clinician Unavailable THELMA BOWSER Admitting Clinician Unavailable MEHRDAD ROD Admitting Clinician Unavailable TOBINKATIUSKA BELLA Admitting Clinician Unavailable TOD GLASS V. 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 Center Added automatic ally from request for surgery [id number] Family Family Disease Active 2020-06 Univers education education 1-09 ity of about pain about [place] management management 00 MD [facility] History of History of Disease Recurre Univers radiation radiation nce 8-20 ity of therapy therapy 00:00: [place] 00 MD [facility] Pressure-i Pressure-i Disease Active Overview : Univers nduced nduced 7-09 Formattin ity of deep deep 00:00: g of this [place] tissue tissue 00 note damage of damage of might be An derso other site other site different n from the Cancer original. Center Site: Coccyx Sepsis Sepsis Disease Active Univers 7-08 ity of 00:00: [place] 00 MD Fuentes zimmerman [facility] Pulmonary Pulmonary Disease Active Uni vers embolism embolism 5-21 ity of 00:00: 00 MD Fuentes zimmerman [facility] Stage 1 Stage 1 Disease Active Overview: Univ ers pressure pressure 5-18 Formattin ity of ulcer of ulcer of 00:00: g of this [place] as other site other site 00 note MD might be Fuentes sen n from the Cancer original. 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 Tube Tube Disease Active Univers feeding feeding 4-24 ity of diet diet 00:00: [place] 00 MD Fuentes zimmerman [facility] Pneumonia Pneumonia Disease Active Uni vers due to due to 4-22 ity of other other 00:00: [place] Gram-negat Gram-negat 00 MD ornelas cecipopeye Dill bacteria bacteria [facility] Sequelae Sequelae Disease Active Unive rs of of 4-11 ity of hyperalime hyperalime 00:00: [place] enriques ntation ntation 00 MD Fuentes zimmerman [facility] Adverse Adverse Disease Active Univers effect of effect of 3-23 ity of glucocorti glucocorti 00:00: Herman carroll coids and coids and 00 synthetic synthetic Prince rso analogues analogues [facility] Current Current Disease Active Univers use of use of 3-23 ity of insulin insulin 00:00: [place] 00 MD Fuentes zimmerman [facility] Anxiety Anxiety Disease Active Univers disorder disorder 3-17 ity of due to a due to a 00:00: [place] general general 00 medical medical Fuentes condition condition n [facility] Disorder Disorder Disease Active Unive rs of fluid of fluid 3-08 ity of AND/OR AND/OR 00:00: [place] electrolyt electrolyt 00 MD e e Anderso zimmerman [facility] Sinus Sinus Disease Active Univers tachycardi tachycardi 3-08 it y of a a 00:00: [place] 00 MD Fuentes zimmerman [facility] Pleuritic Pleuritic Disease Active Uni vers pain pain 2-26 ity of 00:00: [place] 00 MD [facility] Anemia of Anemia of Disease Recurre Un yakov chronic chronic nce 2-22 ity of disease disease 00:00: [place] 00 MD Fuentes zimmerman [facility] Acute and Acute and Disease Active Uni vers chronic chronic 2-22 ity of respirator [place] failure y failure 00 with with Fuentes hypoxia hypoxia n Cancer Center Failure to Failure to Disease Active U nivers thrive thrive 2-22 ity of 00:00: [place] 00 MD Fuentes zimmerman [facility] 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 An derso on on [facility] Dyspnea Dyspnea Disease Active Univers 2-11 ity of 00:00: [place] 00 MD Fuentes zimmerman [facility] Decompensa Decompensa Disease Active U nivers lakhwinder COPD lakhwinder COPD 1-31 ity of with acute with acute [place] exacerbati exacerbati 00 on on [facility] medical terminologist half-way Disease Recurre Un yakov current current nce 1-31 ity of use of use of 00:00: [place] opiate opiate 00 analgesic analgesic [facility] Small cell Small cell Disease Recurre [...] .Patient will be placed on pending status. Personal Personal Disease Recurre Univ ers history of history of nce it y of COVID-19 COVID-19 Willis zimmerman [facility] Other Other Disease Active Univers emphysema emphysema ity of Willis zimmerman [facility] Adjustment Adjustment Disease Recurre Univers disorder disorder nce ity of with mixed with mixed [place] anxiety anxiety and franco Dill depressed depressed erasmo mood mood Cancer Center Chronic Chronic Disease Active Univers pain due pain due ity of to to [place] malignant malignant neoplastic neoplastic An derso disease disease n Cancer Center Slow Slow Disease Active Univers transit transit ity of const[place] on MD Fuentes zimmerman [facility] Other Other Disease Active Univers psychologi psychologi it y of tracy or tracy or [place] physical physical stress, stress, Anderso not not n elsewhere elsewhere Canc er classified classified Ce nter Acute Acute Disease Resolve 2021-09-04 2021-09-04 Univers kidney kidney d 02-16 00:00:00 14:37:22 ity of injury due injury due [place] to to 00 hypovolemi hypovolemi An derso a a n Cancer Center Hypovolemi Hypovolemi Disease Resolve 2021-09-04 2021-09-04 Univers a a d 8 00:00:00 14:36:33 ity of 00:00: [place] 00 MD Fuentes zimmerman [facility] High High Disease Resolve 2021-09-04 2021-09-04 Univers troponin I troponin I d 02-16 00:00:00 14:35:35 ity of level level 00:00: [place] 00 MD Fuentes zimmerman [facility] Hyperkalem Hyperkalem Disease Resolve 2021-09-04 2021-09-04 Univers ia ia d 02-16 00:00:00 14:36:15 ity of 00:00: [place] 00 MD Fuentes zimmerman [facility] Aspergillo Aspergillo Disease Resolve 2021-09-04 2021-09-04 Univers sis with sis with d 10-25 00:00:00 14:36:44 it y of pneumonia pneumonia 00:[place] 00 [place] Fu[place] zimmerman [facility] Multiple Multiple Disease Resolve 2021-09-04 2021-09-04 Univers lung lung d 10-20 00:00:00 14:36:17 ity of abscesses abscesses [place] 00 [place] Fu[place] zimmerman [facility] Drug Drug Disease Resolve 2021-09-04 2021-09-04 Univers induced induced d 09-19 00:00:00 14:37:13 ity of diabetes diabetes 00:00: [place] mellitus mellitus 00 with with Fuentes joseph hyperglyce erasmo [facility] half-way half-way Disease Resolve 2021-09-04 2021-09-04 Univers current current d 3-23 00:00:00 14:37:15 ity of use of use of 00:00: [place] systemic systemic 00 [facility] Pneum[facility] Pneum[facility] Disease Resolve 2021-09-04 2021-09-04 Univers osis osis d 3- 00:00:00 14:35:43 [place] of pneumonia pneumonia [place] [facility] Cytomegalo Cytomegalo Disease Resolve 2021-09-04 2021-09-04 Univers virus virus d 09-04 00:00:00 14:35:47 ity of infection infection 00:[place] 00 [place] Dill [facility] Diarrhea Diarrhea Disease Resolve 2021-09-04 2021-09-04 Univers d 2-22 00:00:00 14:37:13 ity of 00:00: [place] 00 MD Fuentes zimmerman [facility] Aspiration Aspiration Disease Resolve 2021-09-04 2021-09-04 Univers into lower into lower d 2-11 00:00:00 14:37:24 ity of respirator respirator [place] tract y tract 00 MD Fuentes zimmerman [facility] COVID-19 COVID-19 Disease Resolve 2021-09-04 2021-09-04 Univers d 1-30 00:00:00 14:35:39 ity of 00:00: [place] 00 MD Fuentes zimmerman [facility] Amaurosis Amaurosis Disease Resolve 2021-09-04 2021-09-04 Univers fugax fugax d 4-29 00:00:00 14:36:43 ity of 00:00: [place] 00 MD Fuentes zimmerman [facility] Cancer-rel Cancer-rel Disease Resolve 2021-09-04 2021-09-04 Univers ated ated d 00:00:00 14:37:19 ity of fatigue fatigue Willis zimmerman [facility] Mixed Mixed Disease Resolve 2021-09-04 2021-09-04 Univers infectious infectious d 00:00:00 14:36:17 ity of disease disease [facility] Tomography Tomography Disease Resolve 2021-09-04 2021-09-04 Univers - chest - chest d 00:00:00 14:36:37 ity of abnormal abnormal Willis zimmerman [facility] Allergies, Adverse Reactions, Alerts Allergy Allergy Status Severity Reaction(s) Onset Inactive Treating Comm ents Source Name Type Date Date Clinician No Known DA Active U 2019-06 [facility] No Known DA Active U 2019-06 [facility] Allergie 0-[facility] codeine DA Active [place] [facility] codeine DA Active [place] rash [facility]: [facility] codeine DA Active [place] 2011-06 [facility]: [facility] codeine DA Active [place] rash 2011-06 [facility]: d [facility] NO KNOWN Drug Active Univers ALLERGIE Class ity of S [facility] Family History Family Member Diagnosis Comments Start Date Stop Date Source Maternal grandfather Emphysema Univ ersity of [facility] [place] [facility] [place] Can r [place] Natural sister Lung cancer Universit y of [facility] Social History Social Habit Start Date Stop Date Quantity Comments Source History of tobacco Cigarette Smoker University of use [place] MD [facility] History SDOH University o f Alcohol Frequency [facility] History SDOH University o f Alcohol Std Drinks [facility] History SDOH University o f Alcohol Binge [place] MD Marianela gustafson [facility] Exposure to 2022-09-03 2022-09-13 Not sure University of SARS-CoV-2 (event) 00:00:00 08:17:00 [facility] Cigarettes smoked 2022-09-13 2022-09-13 Univers ity of current (pack per 00:00:00 00:00:00 [facility] ) - Reported Cancer Ce nter Tobacco use and 2022-09-13 2022-09-13 Smokeless Universit y of exposure 00:00:00 00:00:00 tobacco non-user [facility] Alcohol intake 2022-09-13 2022-09-13 Ex-drinker University of 00:00:00 00:00:00 (finding) Willis darden [facility] Alcohol Comment 2020-03-02 2020-03-02 .5 gallon of Univers ity of 00:00:00 00:00:00 vodka daily 15 Willis Ramírez nderson years ago Cancer Center Sex Assigned [birth year] Universit y of 00:00:00 00:00:00 Willis darden [facility] Smoking Status Start Date Stop Date Source Ex-smoker 2022-09-13 00:00:00 2022-09-13 00:00:00 Universi ty of [facility] Medications Ordered Filled Start Stop Current Ordering Indication Dosage Frequency Signature Comments Components Source Medication Medication Date Date Medication? Clinician (SIG) Name Name atorkj 2022- No 40mg Take 40 mg Univers n (LIPITOR) 01-22- by mouth ity of 40 mg 14:29: 00:00 daily. [place] tablet 14 :00 MD Dill [facility] budesonide Yes severe .25mg Inhale Un yakov (PULMICORT) 01-22 chronic 0.25 mg by ity of 0.25 mg/2 14:29: obstructive nebulizati [place] mL 10 pulmonary on daily. nebulizer disease [facility] megestrol Yes 400mg Give 400 Uni vers (MEGACE) 40 7-26 mg per ity of mg/mL 14:29: G-tube. [place] suspension 10 MD Dill [facility] umeclidiniu Yes Inhale by U nivers m-vilantero 01-22 mouth. ity of L 62.5-25 14:28: [place] mcg/actuati 31 on dsdv [facility] Eliquis 5 Yes Small cell 5mg Take 1 Univers mg tablet 01-22 carcinoma, tablet (5 ity of 00:00: NOS of mg) by [place] 00 upper lobe, mouth lung every 12 Anderso <Right> (twelve) n hours. [facility] acetaminoph Yes Small cell 1{tbl} Take 1 Univers en-codeine 01-22 carcinoma, tablet by ity of (Tylenol-Co 00:00: NOS of mouth 3 [place] deine #3) 00 upper lobe, (three) 300 mg-30 lung times a Anderso mg tablet <Right> day as n needed for Cancer moderate Center pain. amitriptyli Yes AT BEDTIME Univers ne (ELAVIL) 6-26 ity of 25 mg 00:00: [place] tablet 00 MD Fuentes zimmerman [facility] [place] Advair Yes as needed. Unive rs Diskus 6-08 ity of 250-50 00:00: [place] mcg/dose 00 diskus Anderso inhaler n [facility] atorvastati Yes 40mg Take 40 mg Univers n (LIPITOR) 3-17 by mouth ity of 40 mg 11:58: daily. [place] tablet 00 MD Dill [facility] budesonide Yes severe .25mg Inhale Un yakov (PULMICORT) 3-17 chronic 0.25 mg by ity of 0.25 mg/2 11:58: obstructive nebulizati [place] mL 00 pulmonary on daily. nebulizer disease Anderso solution [facility] umeclidiniu Yes Inhale by U nivers m-vilantero 3-17 mouth. ity of L 62.5-25 11:58: [place] mcg/actuati 00 [facility] 400mg Give 400 Uni vers (MEGACE) 40 3-17 mg per ity of mg/mL 11:58: G-tube. [place] suspension 00 MD iDll [facility] atorvastati Yes 40mg Take 40 mg Univers n (LIPITOR) 3-17 by mouth ity of 40 mg 11:58: daily. [place] tablet 00 [facility] budesonide Yes severe .25mg Inhale Un yakov (PULMICORT) 3-17 chronic 0.25 mg by ity of 0.25 mg/2 11:58: obstructive nebulizati [place] mL 00 pulmonary on daily. nebulizer disease Anderso solution [facility] umeclidiniu Yes Inhale by U nivers m-vilantero 3-17 mouth. ity of L 62.5-25 11:58: [place] mcg/actuati 00 on dsdv [facility] megestrol Yes 400mg Give 400 Uni vers (MEGACE) 40 3-17 mg per ity of mg/mL 11:58: G-tube. [place] suspension 00 [facility] atorvastati Yes 40mg Take 40 mg Univers n (LIPITOR) 3-17 by mouth ity of 40 mg 11:58: daily. [place] tablet 00 [facility] budesonide Yes severe .25mg Inhale Un yakov (PULMICORT) 3-17 chronic 0.25 mg by ity of 0.25 mg/2 11:58: obstructive nebulizati [place] mL 00 pulmonary on daily. [facility]bulizer disease [facility] solution [facility] umeclidiniu Yes Inhale by U nivers m-vilantero 3-17 mouth. ity of L 62.5-25 11:58: [place] mcg/actuati 00 on dsdv [facility] megestrol Yes 400mg Give 400 Uni vers (MEGACE) 40 3-17 mg per ity of mg/mL 11:58: G-tube. [place] suspension [facility] atorvastati Yes 40mg Take 40 mg Univers n (LIPITOR) 3-17 by mouth ity of 40 mg 11:58: daily. [place] tablet 00 [facility] budesonide Yes severe .25mg Inhale Un yakov (PULMICORT) 3-17 chronic 0.25 mg by ity of 0.25 mg/2 11:58: obstructive nebulizati [place] mL 00 pulmonary on daily. [facility] umeclidiniu Yes Inhale by U nivers m-vilantero 3-17 mouth. ity of L 62.5-25 11:58: [place] mcg/actuati 00 on dsdv [facility] megestrol Yes 400mg Give 400 Uni vers (MEGACE) 40 3-17 mg per ity of mg/mL 11:58: G-tube. [place] suspension 00 MD Fuentes zimmerman [facility] atorvastati Yes 40mg Take 40 mg Univers n (LIPITOR) 3-17 by mouth ity of 40 mg 11:58: daily. tablet 00 MD Dill [facility] budesonide Yes severe .25mg Inhale Un yakov (PULMICORT) 3-17 chronic 0.25 mg by ity of 0.25 mg/2 11:58: obstructive nebulizati [place] mL 00 pulmonary on daily. nebulizer disease Anderso solution [facility] umeclidiniu Yes Inhale by U nivers m-vilantero 3-17 mouth. ity of L 62.5-25 11:58: [place] mcg/actuati 00 [facility] Yes 400mg Give 400 Uni vers (MEGACE) 40 3-17 mg per ity of mg/mL 11:58: G-tube. suspension MD Dill [facility] Eliquis 5 Yes 5mg Take 1 Univer s mg tablet 3-06 tablet (5 ity o f 00:00: mg) by [place] mouth twice Anderso daily. [facility] 5 0 Yes 5mg Take 1 Univer s mg tablet 3-06 tablet (5 ity o f 00:00: mg) by [place] mouth twice Anderso daily. [facility] Rodrick 5 Yes 5mg Take 1 Univer s mg tablet 3-06 tablet (5 ity o f 00:00: mg) by [place] mouth twice Anderso daily. [facility] 5 0 Yes 5mg Take 1 Univer s mg tablet 3-06 tablet (5 ity o f 00:00: mg) by [place] mouth twice Anderso daily. [facility] Rodrick 5 0 Yes 5mg Take 1 Univer s mg tablet 3-06 tablet (5 ity o f 00:00: mg) by [place] mouth twice Anderso daily. [facility] 5 2022- No 5mg Take 1 Unive rs mg tablet 3-12 04-26 tablet (5 ity of 00:00: 00:00 mg) by [place] 00 :00 mouth twice Fuentes daily. n [facility] 2021-06 Yes Inhale by U nivers m-vilantero 2-09 mouth. ity of L 62.5-25 12:33: [place] mcg/actuati 10 [facility] Yes Inhale by U nivers m-vilantero 2-09 mouth. ity of L 62.5-25 12:33: [place] mcg/actuati 10 [facility] at[facility] 2021-06 Yes 40mg Take 40 mg Univers n (LIPITOR) 2-09 by mouth ity of 40 mg 12:30: daily. [place] tablet 21 MD Dill [facility] budesonide 2021-06 Yes severe .25mg Inhale Un yakov (PULMICORT) 2-09 chronic 0.25 mg by ity of 0.25 mg/2 12:30: obstructive nebulizati [place] mL 21 pulmonary on daily. nebulizer disease [facility] solution [facility] megestrol 2021-06 Yes 400mg Give 400 Uni vers (MEGACE) 40 2-09 mg per ity of mg/mL 12:30: G-tube. [place] suspension 21 MD Fuentes zimmerman [facility] atorvastati 2021-06 Yes 40mg Take 40 mg Univers n (LIPITOR) 2-09 by mouth ity of 40 mg 12:30: daily. [place] tablet 21 [facility] budesonide 2021-06 Yes severe .25mg Inhale Un yakov (PULMICORT) 2-09 chronic 0.25 mg by ity of 0.25 mg/2 12:30: obstructive nebulizati [place] mL 21 pulmonary on daily. nebulizer disease [facility] solution [facility] megestrol 2021-06 Yes 400mg Give 400 Uni vers (MEGACE) 40 2-09 mg per ity of mg/mL 12:30: G-tube. [place] suspension 21 MD Fuentes zimmerman [facility] HYDROcodone 2021-06- No Small cell 1{tbl} Take 1 Univers -acetaminop 2- 01-09 carcinoma, tablet by ity of hen ([place]) 00:00: 05:59 [place]OS of mouth [place] 5 mg-325 mg 00 :00 upper lobe, every 8 MD per tablet lung (eight) [place] o <Right> hours as n needed for Cancer moderate Center pain for up to 30 days. HYDROcodone 2021-06- No Small cell 1{tbl} Take 1 [facility] -acetaminop 2-02 28- carcinoma, tablet by ity of hen (nGame) 00:00: 05:59 NOS of mouth [place] 5 mg-325 mg 00 :00 upper lobe, every 8 MD per tablet lung (eight) [place] o <Right> hours as n needed for Cancer moderate Center pain for up to 30 days. HYDROcodone 2021-06- No Small cell 1{tbl} Take 1 [facility] -acetaminop 2-07-08 carcinoma, tablet by ity of hen (nGame) 00:00: 05:59 NOS of mouth [place] 5 mg-325 mg 00 :00 upper lobe, every 8 MD per tablet lung (eight) [place] o <Right> hours as n needed for Cancer moderate Center pain for up to 30 days. HYDROcodone 2021-06- No Small cell 1{tbl} Take 1 [facility] -acetaminop 2-07-08 carcinoma, tablet by ity of [place] [employer] (nGame) 00:00: 05:59 NOS of mouth [place] 5 mg-325 mg 00 :00 upper lobe, every 8 MD per tablet lung (eight) [place] o <Right> hours as n needed for Cancer moderate Center pain for up to 30 days. HYDROcodone 2021-06- No Small cell 1{tbl} Take 1 [facility] -acetaminop 2-07-08 carcinoma, tablet by ity of hen (nGame) 00:00: 05:59 NOS of mouth [place] 5 mg-325 mg 00 :00 upper lobe, every 8 MD per tablet lung (eight) [place] o <Right> hours as n needed for Cancer moderate Center pain for up to 30 days. HYDROcodone 2021-06- No Small cell 1{tbl} Take 1 [facility] -acetaminop 2-02 28- carcinoma, tablet by ity of [employer] (nGame) 00:00: 05:59 NOS of mouth [place] 5 mg-325 mg 00 :00 upper lobe, every 8 MD per tablet lung (eight) [place] o <Right> hours as n needed for Cancer moderate Center pain for up to 30 days. HYDROcodone 2021-06- No Small cell 1{tbl} Take 1 [facility] -acetaminop 2-07-08 carcinoma, tablet by ity of hen ([place]) 00:00: 05:59 NOS of mouth [place] 5 mg-325 mg 00 :00 upper lobe, every 8 MD per tablet lung (eight) [place] o <Right> hours as n needed for Cancer moderate Center pain for up to 30 days. HYDROcodone 2021-06- No Small cell 1{tbl} Take 1 [facility] -acetaminop 207-08 carcinoma, tablet by ity of hen ([place]) 00:00: 05:59 NOS of mouth [place] [...] <Right> daily for n tablet 10 days. 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 [facility] midodrine 2021-06 Yes 5mg Take 1 Univer s (PROAMATINE 1-14 tablet (5 ity of ) 5 mg 00:00: mg) by [place] tablet 00 mouth MD twice [place] Yes 5mg Take 1 Univer s (PROAMATINE 1-14 tablet (5 ity of ) 5 mg 00:00: mg) by [place] tablet 00 mouth MD twice [place] daily. n [facility] midodrine 2021-06 Yes 5mg Take 1 Univer s (PROAMATINE 1-14 tablet (5 ity of ) 5 mg 00:00: mg) by [place] tablet 00 mouth [facility] Univer s (PROAMATINE 1-14 tablet (5 ity of ) 5 mg 00:00: mg) by [place] tablet 00 mouth MD twice Anderso daily. n [facility] midodrine 2021-06 Yes 5mg Take 1 Univer s (PROAMATINE 1-14 tablet (5 ity of ) 5 mg 00:00: mg) by [place] tablet 00 mouth MD twice [place] [facility] Take 1 Univer s (PROAMATINE 1-14 tablet (5 ity of ) 5 mg 00:00: mg) by [place] tablet 00 mouth MD twice [place] [facility] Yes 5[facility] Take 1 Univer s (PROAMATINE 1-14 tablet (5 ity of ) 5 mg 00:00: mg) by [place] tablet 00 mouth MD twice [place] [facility]. [facility] Yes 5mg Take 1 Univer s (PROAMATINE 1-14 tablet (5 ity of ) 5 mg 00:00: mg) by [place] tablet 00 mouth MD twice Anderso daily. [facility] nystatin 2021-06 Yes [id number] Take 5 mL U nivers (MYCOSTATIN 1-03 (500,000 ity of ) 100,000 00:00: Units) by [place] units/mL 00 mouth MD suspension every 8 [place] o (eight) n hours. [facility] nystatin 2021-06 Yes [id number] Take 5 mL U nivers (MYCOSTATIN 1-03 (500,000 ity of ) 100,000 00:00: Units) by [place] units/mL 00 mouth MD suspension every 8 [place] o (eight) n hours. [facility] nystatin 2021-06 Yes 5mL Take 5 mL Univ ers (MYCOSTATIN 1-03 (500,000 ity of ) 100,000 00:00: Units) by [place] units/mL 00 mouth MD suspension every 8 [place] o (eight) n hours. [facility] nystatin 2021-06 Yes 5mL Take 5 mL Univ ers (MYCOSTATIN 1-03 (500,000 ity of ) 100,000 00:00: Units) by [place] units/mL 00 mouth MD suspension every 8 [place] o (eight) n hours. [facility] nystatin 2021-06 Yes 5mL Take 5 mL Univ ers (MYCOSTATIN 1-03 (500,000 ity of ) 100,000 00:00: Units) by [place] units/mL 00 mouth MD suspension every 8 [place] o (eight) n hours. [facility] nystatin 2021-06 Yes 5mL Take 5 mL Univ ers (MYCOSTATIN 1-03 (500,000 ity of ) 100,000 00:00: Units) by [place] units/mL 00 mouth MD suspension every 8 [place] o (eight) n hours. [facility] nystatin 2021-06 Yes 5mL Take 5 mL Univ ers (MYCOSTATIN 1-03 (500,000 ity of ) 100,000 00:00: Units) by [place] units/mL 00 mouth MD suspension every 8 [place] o (eight) n hours. [facility] nystatin 2021-06- No 5mL Take 5 mL Uni vers (MYCOSTATIN 1-03 07-26 (500,000 ity of ) 100,000 00:00: 00:00 Units) [place] units/mL 00 :00 mouth MD suspension every 8 [place] o (eight) n hours. [facility] QUEtiapine Yes Anxiety 25mg Take 1 [...] 2021-0 Yes Anxiety 25mg Take 1 Un [place] (SEROquel) 12-28 disorder tablet (25 ity of [...] Anxiety 25mg Take 1 U nivers (SEROquel) 12-28 disorder tablet (25 ity of 25 mg 00:00: 00:00 due to a mg) by [place] tablet 00 :00 general mouth MD medical every 6 Anderso condition (six) n hours as Cancer needed for Center non-violen t agitation (anxiety sleep). amoxicillin 2021- Yes Upper 875mg Take 1 Un yakov [...] specified daily. n tablet Cancer Center amoxicillin 2021- Yes Upper 875mg Take 1 Un yakov [...] [place] o specified n Cancer Center fluconazole 2021-0 2022- No Candidal 200mg Take 1 [facility] (Diflucan) 4-28 05-03 esophagitis tablet ity of 200 mg 00:00: 04:59 (200 mg) [place] tablet 00 :00 by mouth MD daily for Anderso 4 days. [facility] fluconazole 2021- No Candidal 200mg Take 1 [facility] (Diflucan) 10-25- esophagitis tablet ity of 200 mg 00:00: 04:59 (200 mg) [place] tablet 00 :00 by mouth MD daily for Anderso 4 days. [facility] fluconazole 2021- No Cand[place] 200mg Take 1 [facility] (Diflucan) 10-25- esophagitis tablet ity of 200 mg 00:00: 04:59 (200 mg) [place] tablet 00 :00 by mouth MD daily for Anderso 4 days. [facility] fluconazole 2021- No [place] 200mg Take 1 Univers (Diflucan) 10-25 esophagitis tablet ity of 200 mg 00:00: 04:59 (200 mg) [place] tablet 00 :00 by mouth MD daily for Anders[place] 4 days. [facility] fluconazole 2021- No Candidal 200mg Take 1 [facility] (Diflucan) 10-25 esophagitis tablet ity of 200 mg 00:00: 04:59 (200 mg) [place] tablet 00 :00 by mouth MD daily for Anderso 4 days. [facility] fluconazole 2021- No Candidal 200mg Take 1 [facility] (Diflucan) 10-25- esophagitis tablet ity of 200 mg 00:00: 04:59 (200 mg) [place] tablet 00 :00 by mouth MD daily for Anderso 4 days. [facility] fluconazole 2021- No Candidal 200mg Take 1 [facility] (Diflucan) 10-25- esophagitis tablet ity of 200 mg 00:00: 04:59 (200 mg) [place] tablet 00 :00 by mouth MD daily for Anderso 4 days. [facility] promethazin 2021- No 12.5mg Take 12.5 Univers e -27 04-27 mg by ity of (PHENERGAN) 18:27: 00:00 [place] 12.5 mg 03 :00 every 6 MD tablet (six) Anders[place] hours as n needed. [facility] aspirin 81 0 2021- No 81mg Take 81 mg Univers mg EC 4-24 10-27 by mouth ity of tablet 18:27: 00:00 [place] 03 :00 [place] Fuentes zimmerman [facility] [place] promethazin 2021- No 12.5mg Take 12.5 Univers e 4-27 04-27 mg by ity of (PHENERGAN) 18:27: 00:00 [place] 12.5 mg 03 :00 every 6 MD tablet (six) [place] hours as n needed. Cancer Center aspirin 81 2021-0 2021- No 81mg Take 81 mg Univers mg EC 4-24 10-27 by mouth ity of tablet 18:27: 00:[place] 03 [place] [facility] 12.5[facility] Take 12.5 Univers e 4-24 10-27 mg by ity of (PHENERGAN) 18:27: 00:00 [place] 12.5 mg 03 :00 every 6 MD tablet (six) [place] hours as n needed. Cancer Center aspirin 81 2021-0 2021- No 81mg Take 81 mg Univers mg EC 4-24 10-27 by mouth ity of tablet 18:27: 00:00 [place] 03 :00 [place] Fuentes zimmerman [facility] 2021- No 12.5mg Take 12.5 Univers e 4-27 04-27 mg by ity of (PHENERGAN) 18:27: 00:00 [place] 12.5 mg 03 :00 every 6 MD tablet (six) [place] hours as n needed. Cancer Center aspirin 81 2021-0 2021- No 81mg Take 81 mg [facility] mg EC 4 04-27 by mouth ity of tablet 18:27: 00:00 [place] 03 :00 [place] Fuentes zimmerman [facility] 2021- No 12.5mg Take 12.5 [...] [place]ine s 03 :00 MD Fuentes zimmerman [facility] promethazin 2021- No 12.5mg Take 12.5 Univers e -24 10-27 mg by ity of (PHENERGAN) 18:27: 00:00 mouth [place] 12.5 mg 03 :00 every 6 tablet (six) [place] hours as n needed. Cancer Center aspirin 81 0 2021- No 81mg Take 81 mg [facility] mg EC 10-24- by mouth ity of tablet 18:27: 00:00 as needed. [place] 03 :00 MD Fuentes zimmerman [facility] promethazin 2021- No 12.5mg Take 12.5 Univers e 10-24-27 mg by ity of (PHENERGAN) 18:27: 00:00 [place] 12.5 mg 03 :00 every 6 MD tablet (six) [place] hours as n needed. Cancer Center aspirin 81 2021- No 81mg Take 81 mg [facility] mg EC 10-24- by mouth ity of tablet 18:27: 00:00 as needed. [place] s 03 :00 MD Fuentes zimmerman [facility] atorvastati Yes 40mg Take 40 mg Univers n (LIPITOR) -27 by mouth ity of 40 mg 18:26: daily. 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 ity of L 62.5-25 18:26: [place] mcg/actuati 55 MD on dsdv Fuentes [facility] megestrol Yes 400mg Give 400 Uni vers (MEGACE) 40 4-27 mg per ity of mg/mL 18:26: G-tube. [place] suspension 55 [facility] atorvastati Yes 40mg Take 40 mg Univers n (LIPITOR) 4-27 by mouth ity of 40 mg 18:26: daily. 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 [facility] umeclidiniu Yes Inhale by U nivers m-vilantero 4-27 mouth. ity of L 62.5-25 18:26: [place] mcg/actuati 55 on dsdv [facility] megestrol Yes 400mg Give 400 Uni vers (MEGACE) 40 4-27 mg per ity of mg/mL 18:26: G-tube. [place] suspension 55 [facility] atorvastati Yes 40mg Take 40 mg Univers n (LIPITOR) 4-27 by mouth ity of 40 mg 18:26: daily. 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 nebulizer disease [facility] umeclidiniu Yes Inhale by U nivers m-vilantero 4-27 mouth. ity of L 62.5-25 18:26: [place] mcg/actuati 55 on dsdv [facility] megestrol Yes 400mg Give 400 Uni vers (MEGACE) 40 4-27 mg per ity of mg/mL 18:26: G-tube. [place] suspension 55 [facility] ipratropium Yes Pneumocysto 3mL Inhale 1 [...] Yes Pneumocysto 3mL Inhale 1 Univers -albuterol -27 sis vial (3 ity of (DUO-NEB) 00:00: [...] [place] o mood n Cancer Center Ventolin 2022-0 Yes Pneumonia 1{puff} Inhale 1 Univers HFA [...] mg 00:00: with mixed (75 mg) by [place] tablet 00 anxiety and mouth at MD depressed bedtime. [place] o mood n Cancer Center Ventolin Yes Pneumonia 1{puff} Inhale 1 [facility] HFA 90 10-24 due to puff by ity of mcg/actuati 00:00: other [place] on inhaler 00 Gram-negati every 6 MD ve bacteria (six) [place] hours as n needed for Cancer wheezing Center or shortness of breath. amoxicillin 0 2021- No Upper 875mg Take 1 U nivers -clavulanat 4-10-24 respiratory tablet ity of e 00:00: 00:00 infection, (875 mg) [place] (Augmentin) 00 :00 not by mouth MD 875 mg-125 otherwise twice And erso mg per specified daily for n tablet 7 days. [facility] amoxicillin 2021- No Upper 875mg Take 1 U nivers -clavulanat 4-14 10-24 respiratory tablet ity of e 00:00: 00:00 infection, (875 mg) [place] (Augmentin) 00 :00 not by mouth MD 875 mg-125 otherwise twice And erso mg per specified daily for n tablet 7 days. [facility] amoxicillin 2021- No Upper 875mg Take 1 U nivers -clavulanat 410-24 respiratory tablet ity of e 00:00: 00:00 infection, (875 mg) [place] (Augmentin) 00 :00 not by mouth MD 875 mg-125 otherwise twice And erso mg per specified daily for n tablet 7 days. [facility] amoxicillin 2021- No Upper 875mg Take 1 U nivers -clavulanat 410-24 respiratory tablet ity of e 00:00: 00:00 infection, (875 mg) [place] (Augmentin) 00 :00 not by mouth 875 mg-125 otherwise twice And erso mg per specified daily for n tablet 7 days. [facility] amoxicillin 2021- No Upper 875mg Take 1 U nivers -clavulanat 410-24 respiratory tablet ity of e 00:00: 00:00 infection, (875 mg) [place] (Augmentin) 00 :00 not by mouth 875 mg-125 otherwise twice And erso mg per specified daily for n tablet 7 days. [facility] amoxicillin 2021- No Upper 875mg Take 1 U nivers -clavulanat 4-14 10-24 respiratory tablet ity of e 00:00: 00:00 infection, (875 mg) [place] (Augmentin) 00 :00 not by mouth MD 875 mg-125 otherwise twice And erso mg per specified daily for n tablet 7 days. [facility] amoxicillin 2021- No Upper 875mg Take 1 U nivers -clavulanat 10-11 respiratory tablet ity of e 00:00: 00:00 infection, (875 mg) [place] (Augmentin) 00 :00 not by mouth 875 mg-125 otherwise twice And erso mg per specified daily for n tablet 7 days. [facility] amoxicillin 2021- No Decompensat 875mg Take 1 [facility] -clavulanat 10-10 ed COPD tablet it y of e 00:00: 00:00 with acute (875 mg) [place] (Augmentin) 00 :00 exacerbatio by mouth 875 mg-125 n twice [place] mg per daily for n tablet 5 days. [facility] amoxicillin 2021- No Decompensat 875mg Take 1 [facility] -clavulanat 10-10 ed COPD tablet it y of e 00:00: 00:00 with acute (875 mg) [place] (Augmentin) 00 :00 exacerbatio by mouth 875 mg-125 n twice [place] mg per daily for n tablet 5 days. [facility] amoxicillin 2021- No Decompensat 875mg Take 1 [facility] -clavulanat 10-10 ed COPD tablet it y of e 00:00: 00:00 with acute (875 mg) [place] (Augmentin) 00 :00 exacerbatio by mouth 875 mg-125 n twice [place] mg per daily for n tablet 5 days. [facility] amoxicillin 2021- No Decompensat 875mg Take 1 [facility] -clavulanat 10-10 ed COPD tablet it y of e 00:00: 00:00 with acute (875 mg) [place] (Augmentin) 00 :00 exacerbatio by mouth 875 mg-125 n twice [place] mg per daily for n tablet 5 days. [facility] amoxicillin 2021- No Decompensat 875mg Take 1 [facility] -clavulanat 10-10 ed COPD tablet it y of e 00:00: 00:00 with acute (875 mg) [place] (Augmentin) 00 :00 exacerbatio by mouth 875 mg-125 n twice [place] mg per daily for n tablet 5 days. [facility] amoxicillin 2021- No Decompensat 875mg Take [...] tablet hours for Cancer 3 days. Center amoxicillin 2021- No Community 875mg Take 1 [facility] -clavulanat 09-07 acquired tablet i ty of e 00:00: 04:59 pneumonia (875 mg) [place] (AUGMENTIN) 00 :00 by mouth MD 875 mg-125 every 12 [place] so mg per (twelve) n tablet hours for Cancer 3 days. [place] amoxicillin 2021- No [facility] 875mg Take 1 Univers -clavulanat 09-07 acquired tablet i ty of e 00:00: 04:59 pneumonia (875 mg) [place] (AUGMENTIN) 00 :00 by mouth MD 875 mg-125 every 12 [place] so mg per (twelve) n tablet hours for Cancer 3 days. [place] amoxicillin 2021- No [facility] 875mg Take 1 [facility] -clavulanat 09-07 acquired tablet i ty of e 00:00: 04:59 pneumonia (875 mg) [place] (AUGMENTIN) 00 :00 by mouth MD 875 mg-125 every 12 [place] so mg per (twelve) n tablet hours for Cancer 3 days. [place] amoxicillin [id number] No [facility] 875mg Take 1 [facility] -clavulanat 09-07 acquired tablet i ty of e 00:00: 04:59 pneumonia (875 mg) [place] (AUGMENTIN) 00 :00 by mouth MD 875 mg-125 every 12 [place] so mg per (twelve) n tablet hours for Cancer 3 days. [place] amoxicillin 2021- No [facility] 875mg Take 1 [facility] -clavulanat 09-07 acquired tablet i ty of e 00:00: 00:00 pneumonia (875 mg) [place] (AUGMENTIN) 00 :00 by mouth 875 mg-125 every 12 [place] so mg per (twelve) n tablet hours for Cancer 3 days. [place] amoxicillin 2021- No [facility] 875mg Take 1 Univers -clavulanat 09-07 acquired tablet i ty of e 00:00: 00:00 pneumonia (875 mg) [place] (AUGMENTIN) 00 :00 by mouth MD 875 mg-125 every 12 [place] so mg per (twelve) n tablet hours for Cancer 3 days. [place] amoxicillin [id number] No [facility] 875mg Take 1 Univers -clavulanat 309-07 acquired tablet i ty of e 00:00: 00:00 pneumonia (875 mg) [place] (AUGMENTIN) 00 :00 by mouth MD 875 mg-125 every 12 [place] so mg per (twelve) n tablet hours for Cancer 3 days. [place] amoxicillin 2021 No [facility] 875mg Take 1 Univers -clavulanat 09-07 acquired tablet i ty of e 00:00: 00:00 pneumonia (875 mg) [place] (AUGMENTIN) 00 :00 by mouth MD 875 mg-125 every 12 [place] so mg per (twelve) n tablet hours for Cancer 3 days. [place] amoxicillin [id number] 875mg Take 1 Univers -clavulanat 09-07 acquired tablet i ty of e 00:00: 00:00 pneumonia (875 mg) [place] (AUGMENTIN) 00 :00 by mouth MD 875 mg-125 every 12 [place] so mg per (twelve) n tablet hours for Cancer 3 days. [place] amoxicillin [id number] 875mg Take 1 [facility] -clavulanat 09-07 acquired tablet i ty of e 00:00: 00:00 pneumonia (875 mg) [place] (AUGMENTIN) 00 :00 by mouth MD 875 mg-125 every 12 [place] so mg per (twelve) n tablet hours for Cancer 3 days. [place] amoxicillin [id number] 875mg Take 1 [facility] -clavulanat 09-07 acquired tablet i ty of e 00:00: 00:00 pneumonia (875 mg) [place] (AUGMENTIN) 00 :00 by mouth MD 875 mg-125 every 12 [place] so mg per (twelve) n tablet hours for Cancer 3 days. [place] amoxicillin [id number] 875mg Take 1 [facility] -clavulanat 09-07 acquired tablet i ty of e 00:00: 00:00 pneumonia (875 mg) [place] (AUGMENTIN) 00 :00 by mouth MD 875 mg-125 every 12 [place] so mg per (twelve) n tablet hours for Cancer 3 days. [place] amoxicillin [id number] 875mg Take 1 [facility] -clavulanat 09-07 acquired tablet i ty of e 00:00: 00:00 pneumonia (875 mg) [place] (AUGMENTIN) 00 :00 by mouth MD 875 mg-125 every 12 [place] so mg per (twelve) n tablet hours for Cancer 3 days. Center amoxicillin 2021- No Community 875mg Take 1 [facility] -clavulanat 3-05 02-11 acquired tablet i ty of e 00:00: 00:00 pneumonia (875 mg) [place] (AUGMENTIN) 00 :00 by mouth MD 875 mg-125 every 12 [place] so mg per (twelve) n tablet hours for Cancer 3 days. [place] HYDROcodone 2021- No Adjustment 1{tbl} Take 1 [facility] -acetaminop 2-19 -11 disorder tablet by ity of [place] [employer] (nGame) 00:00: 00:00 with mixed mouth [place] 5 mg-325 mg 00 :00 anxiety and every 6 MD per tablet depressed (six) And erso mood hours as n needed for Cancer moderate Center pain for up to 30 days. HYDROcodone 2021- No Adjustment 1{tbl} Take 1 [facility] -acetaminop 2-15 09-11 disorder tablet by ity of [employer] (nGame) 00:00: 00:00 with mixed mouth [place] 5 mg-325 mg 00 :00 anxiety and every 6 MD per tablet depressed (six) And erso mood hours as n needed for Cancer moderate Center pain for up to 30 days. HYDROcodone 2021- No Adjustment 1{tbl} Take 1 [facility] -acetaminop 2-19 -11 disorder tablet by ity of [employer] (nGame) 00:00: 00:00 with mixed mouth [place] 5 mg-325 mg 00 :00 anxiety and every 6 MD per tablet depressed (six) And erso mood hours as n needed for Cancer moderate Center pain for up to 30 days. HYDROcodone 2021- No Adjustment 1{tbl} Take 1 [facility] -acetaminop 2-19 -11 disorder tablet by ity of [employer] (nGame) 00:00: 00:00 with mixed mouth [place] 5 mg-325 mg 00 :00 anxiety and every 6 MD per tablet depressed (six) And erso mood hours as n needed for Cancer moderate Center pain for up to 30 days. HYDROcodone 2021- No Adjustment 1{tbl} Take 1 [facility] -acetaminop 2-19 -11 disorder tablet by ity of [employer] ([place]) 00:00: 00:00 with mixed mouth [place] 5 [...] anxiety and mouth at MD depressed bedtime. [facility] QUEtiapine 2021- No Adjustment 75mg Take 3 Univers (SEROquel) 08-14 disorder tablets i ty of 25 mg 00:00: 00:00 with mixed (75 mg) by [place] tablet 00 :00 anxiety and mouth at MD depressed bedtime. [facility] QUEtiapine 2021- No Adjustment 75mg Take 3 Univers (SEROquel) 08-14 disorder tablets i ty of 25 mg 00:00: 00:00 with mixed (75 mg) by [place] tablet 00 :00 anxiety and mouth at MD depressed bedtime. [facility] QUEtiapine 2021- No Adjustment 75mg Take 3 Univers (SEROquel) 08-14 disorder tablets i ty of 25 mg 00:00: 00:00 with mixed (75 mg) by [place] tablet 00 :00 anxiety and mouth at MD depressed bedtime. [facility] QUEtiapine 2021- No Adjustment 75mg Take 3 Univers (SEROquel) 08-14 disorder tablets i ty of 25 mg 00:00: 00:00 with mixed (75 mg) by [place] tablet 00 :00 anxiety and mouth at MD depressed bedtime. [facility] QUEtiapine 2021- No Adjustment 75mg Take 3 [facility] (SEROquel) 08-14 disorder tablets i ty of 25 mg 00:00: 00:00 with mixed (75 mg) by [place] tablet 00 :00 anxiety and mouth at MD depressed bedtime. [facility] QUEtiapine 2021- No Adjustment 75mg Take 3 [facility] (SEROquel) 08-14 disorder tablets i ty of 25 mg 00:00: 00:00 with mixed (75 mg) by [place] tablet 00 :00 anxiety and mouth at MD depressed bedtime. [facility] HYDROcodone 2021- No Adjustment 1{tbl} Take 1 [facility] -acetaminop 2-15 - disorder tablet by ity of hen (nGame) 00:00: 00:00 with mixed mouth [place] 5 mg-325 mg 00 :00 anxiety and every 6 MD per tablet depressed (six) And erso mood hours as n needed for Cancer moderate Center pain for up to 30 days. HYDROcodone 2021- No Adjustment 1{tbl} Take 1 [facility] -acetaminop 2-15 - disorder tablet by ity of hen (nGame) 00:00: 00:00 with mixed mouth [place] 5 mg-325 mg 00 :00 anxiety and every 6 MD per tablet depressed (six) And erso mood hours as n needed for Cancer moderate Center pain for up to 30 days. HYDROcodone 2021- No Adjustment 1{tbl} Take 1 [facility] -acetaminop 2-15 - disorder tablet by ity of hen (nGame) 00:00: 00:00 with mixed mouth [place] 5 mg-325 mg 00 :00 anxiety and every 6 MD per tablet depressed (six) And erso mood hours as n needed for Cancer moderate Center pain for up to 30 days. HYDROcodone 2021- No Adjustment 1{tbl} Take 1 [facility] -acetaminop 2-15 - disorder tablet by ity of hen (nGame) 00:00: 00:00 with mixed mouth [place] 5 mg-325 mg 00 :00 anxiety and every 6 MD per tablet depressed (six) And erso mood hours as n needed for Cancer moderate Center pain for up to 30 days. 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) BY [place] tablet 00 upper lobe, MOUTH MD lung TWICE Anderso <Right> DAILY [facility] 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) BY [place] tablet 00 upper lobe, MOUTH MD lung TWICE Anderso <Right> DAILY [facility] 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) BY [place] tablet 00 upper lobe, MOUTH MD lung TWICE Anderso <Right> DAILY [facility] 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) BY [place] tablet 00 upper lobe, MOUTH MD lung TWICE Anderso <Right> DAILY [facility] 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) BY [place] tablet 00 upper lobe, MOUTH MD lung TWICE Anderso <Right> DAILY [facility] 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) BY [place] tablet 00 upper lobe, MOUTH MD lung TWICE Anderso <Right> DAILY [facility] 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) BY [place] tablet 00 upper lobe, MOUTH MD lung TWICE Anderso <Right> DAILY [facility] 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) BY [place] tablet 00 upper lobe, MOUTH MD lung TWICE Anderso <Right> DAILY [facility] memantine Yes Small cell TAKE 1 [facility] (NAMENDA) 08-13 carcinoma, TABLET(10 ity of 10 mg 00:00: [...] EC 00 tract MOUTH MD tablet DAILY [facility] pantoprazol Yes Aspiration TAKE 1 Univers e 1-28 into lower TABLET(40 ity of (PROTONIX) 00:00: respiratory MG) BY [place] 40 mg EC 00 tract MOUTH MD tablet DAILY [facility] pantoprazol Yes Aspiration TAKE 1 Univers e 1-28 into lower TABLET(40 ity of (PROTONIX) 00:00: respiratory MG) BY [place] 40 mg EC 00 tract MOUTH MD tablet DAILY [facility] pantoprazol Yes Aspiration TAKE 1 Univers e 1-28 into lower TABLET(40 ity of (PROTONIX) 00:00: respiratory MG) BY [place] 40 mg EC 00 tract MOUTH MD tablet DAILY [facility] pantoprazol Yes Aspiration TAKE 1 Univers e 1-28 into lower TABLET(40 ity of (PROTONIX) 00:00: respiratory MG) BY [place] 40 mg EC 00 tract MOUTH MD tablet DAILY [facility] pantoprazol Yes Aspiration TAKE 1 Univers e 1-28 into lower TABLET(40 ity of (PROTONIX) 00:00: respiratory MG) BY [place] 40 mg EC 00 tract MOUTH MD tablet DAILY [facility] pantoprazol Yes Aspiration TAKE 1 Univers e 1-28 into lower TABLET(40 ity of (PROTONIX) 00:00: respiratory MG) BY [place] 40 mg EC 00 tract MOUTH MD tablet DAILY [facility] pantoprazol Yes Aspiration TAKE 1 Univers e 1-28 into lower TABLET(40 ity of (PROTONIX) 00:00: respiratory MG) BY [place] 40 mg EC 00 tract MOUTH MD tablet DAILY [facility] pantoprazol Yes Aspiration TAKE 1 Univers e 1-28 into lower TABLET(40 ity of (PROTONIX) 00:00: respiratory MG) BY [place] 40 mg EC 00 tract MOUTH MD tablet DAILY [facility] pantoprazol Yes Aspiration TAKE 1 Univers e 07-27 into lower TABLET(40 ity of (PROTONIX) 00:00: respiratory MG) BY [place] 40 mg EC 00 tract MOUTH MD tablet DAILY [facility] pantoprazol Yes Aspiration TAKE 1 [facility] e 07-27 into lower TABLET(40 ity of (PROTONIX) 00:00: respiratory MG) BY [place] 40 mg EC 00 tract MOUTH MD tablet DAILY [facility] QUEtiapine 2021- No Adjustment 75mg Take 3 [facility] (SEROquel) 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 [facility] QUEtiapine 2021- No Adjustment 75mg Take 3 [facility] (SEROquel) 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 [facility] QUEtiapine 2021- No Adjustment 75mg Take 3 [facility] (SEROquel) 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 [facility] QUEtiapine 2021- No Adjustment 75mg Take 3 [facility] (SEROquel) 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 [facility] pantoprazol 2021- No Aspiration 40mg Take 1 Univers e 07-11 into lower tablet (40 it y of (PROTONIX) 00:00: 00:00 respiratory mg) by [place] 40 mg EC 00 :00 tract mouth MD tablet daily. [facility] pantoprazol 2021- No Aspiration 40mg Take 1 Univers e 07-11 into lower tablet (40 it y of (PROTONIX) 00:00: 00:00 respiratory mg) by [place] 40 mg EC 00 :00 tract mouth tablet daily. [facility] pantoprazol 2021- No Aspiration 40mg Take 1 Univers e 07-11 into lower tablet (40 it y of (PROTONIX) 00:00: 00:00 respiratory mg) by [place] 40 mg EC 00 :00 tract mouth MD tablet daily. [facility] pantoprazol 2021- No Aspiration 40mg Take 1 Univers e 07-11 into lower tablet (40 it y of (PROTONIX) 00:00: 00:00 respiratory mg) by [place] 40 mg EC 00 :00 tract mouth MD tablet daily. [facility] OLANZapine 2021- No Insomnia, 2.5mg Take 1 [facility] (ZyPREXA) 07-02 not tablet ity of 2.5 mg 00:00: 00:00 otherwise (2.5 mg) [place] tablet 00 :00 specified by mouth 2 (two) Anderso times a n day as Cancer needed for Center sleep or non-violen t agitation. OLANZapine 2021- No Insomnia, 2.5mg Take 1 [facility] (ZyPREXA) 07-02 not tablet ity of 2.5 mg 00:00: 00:00 otherwise (2.5 mg) [place] tablet 00 :00 specified by mouth 2 (two) Andjaniceo times a n day as Cancer needed for Center sleep or non-violen t agitation. OLANZapine 2021- No Insomnia, 2.5mg Take 1 [facility] (ZyPREXA) 07-02 not tablet ity of 2.5 mg 00:00: 00:00 otherwise (2.5 mg) [place] tablet 00 :00 specified by mouth 2 (two) Anderso times a n day as [...] mg per specified daily. 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 [place] amoxicillin 2020-06 No Upper 875mg Take 1 U nivers -clavulanat -15 respiratory tablet ity of e 00:00: 00:00 infection, (875 mg) [place] (Augmentin) 00 :00 not by mouth 875 mg-125 otherwise twice And erso mg per specified daily. 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 [place] amoxicillin 2020-06 No Upper 875mg Take 1 U nivers -clavulanat 15 respiratory tablet ity of e 00:00: 00:00 infection, (875 mg) [place] (Augmentin) 00 :00 not by mouth MD 875 mg-125 otherwise twice And erso mg per specified daily. 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 [place] amoxicillin 2020-06- No Upper 875mg Take 1 U nivers -clavulanat 08-14 respiratory tablet ity of e 00:00: 00:00 infection, (875 mg) [place] (Augmentin) 00 :00 not by mouth MD 875 mg-125 otherwise twice And erso mg per specified daily. 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 [place] amoxicillin 2020-06- No Upper 875mg Take 1 U nivers -clavulanat 2-13 06-27 respiratory tablet ity of e 00:00: 00:00 infection, (875 mg) [place] (Augmentin) 00 :00 not by mouth MD 875 mg-125 otherwise twice And erso mg per specified daily. n tablet Cancer [place] amoxicillin 2020-06- No Upper 875mg Take 1 U nivers -clavulanat 2-13 06-27 respiratory tablet ity of e 00:00: 00:00 infection, (875 mg) [place] (Augmentin) 00 :00 not by mouth MD 875 mg-125 otherwise twice And erso mg per specified daily. n tablet Cancer [place] amoxicillin 2020-06- No Upper 875mg Take 1 [...] tablet 00 :00 PRN back MD spasm. [facility] baclofen 2020-06- No Muscle Take 1/2 Un yakov (LIORESAL) 0 11-18 spasm of tablet (5 ity of 10 mg 00:00: 00:00 back mg) PO q12 [place] tablet 00 :00 PRN back MD spasm. [facility] baclofen 2020-06- No Muscle Take 1/2 Un yakov (LIORESAL) 0 11-18 spasm of tablet (5 ity of 10 mg 00:00: 00:00 back mg) PO q12 [place] tablet 00 :00 PRN back MD spasm. [facility] OLANZapine 2020-06- No Adjustment 2.5mg Take [...] cell 5 mg a day [facility] (Namenda) 011 carcinoma, x 1 week, ity of 10 [...] cell 5 mg a day [facility] (Namenda) 011 carcinoma, x 1 week, ity of 10 [...] Upper 875mg Take 1 U nivers -clavulanat 0- respiratory tablet ity of e 00:00: 00:00 infection, (875 mg) [place] (Augmentin) 00 :00 not by mouth MD 875 mg-125 otherwise twice And erso mg per specified daily. n tablet [facility] amoxicillin 2020-06- No Upper 875mg Take 1 U nivers -clavulanat 0-15 08-22 respiratory tablet ity of e 00:00: 00:00 infection, (875 mg) [place] (Augmentin) 00 :00 not by mouth 875 mg-125 otherwise twice And erso mg per specified daily. n tablet [facility] amoxicillin 2020-06- No Upper 875mg Take 1 U nivers -clavulanat 015 08-22 respiratory tablet ity of e 00:00: 00:00 infection, (875 mg) [place] (Augmentin) 00 :00 not by mouth 875 mg-125 otherwise twice And erso mg per specified daily. n tablet [facility] amoxicillin 2020-06- No Upper 875mg Take 1 U nivers -clavulanat 008-22 respiratory tablet ity of e 00:00: 00:00 infection, (875 mg) [place] (Augmentin) 00 :00 not by mouth 875 mg-125 otherwise twice And erso mg per specified daily. 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, TABLET(10 ity of 10 mg 00:00: 00:00 NOS of MG) BY [place] tablet 00 :00 upper lobe, MOUTH lung TWICE Anderso <Right> DAILY [facility] 2020-06- No Small cell TAKE 1 [facility] (NAMENDA) 0-14 carcinoma, TABLET(10 ity of 10 mg 00:00: 00:00 NOS of MG) BY [place] tablet 00 :00 upper lobe, MOUTH lung TWICE Anderso <Right> DAILY [facility] 2020-06- No Small cell TAKE 1 [facility] (NAMENDA) 0-14 carcinoma, TABLET(10 ity of 10 mg 00:00: 00:00 NOS of MG) BY [place] tablet 00 :00 upper lobe, MOUTH lung TWICE Anderso <Right> DAILY [facility] memantine 2020-06- No Small cell TAKE 1 [facility] (NAMENDA) 012 0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, TABLET(10 ity of 10 mg 00:00: 00:00 NOS of MG) BY [place] tablet 00 :00 upper lobe, MOUTH lung TWICE Anderso <Right> DAILY [facility] amoxicillin 2020-06- No Upper 875mg Take 1 U nivers -clavulanat 0-09 10-15 respiratory tablet ity of e 00:00: 00:00 infection, (875 mg) [place] (Augmentin) 00 :00 not by mouth 875 mg-125 otherwise twice And erso mg per specified daily. n tablet [facility] amoxicillin 2020-06 No Upper 875mg Take 1 U nivers -clavulanat 009 10-15 respiratory tablet ity of e 00:00: 00:00 infection, (875 mg) [place] (Augmentin) 00 :00 not by mouth 875 mg-125 otherwise twice And erso mg per specified daily. n tablet [facility] pantoprazol 2021- No Aspiration 40mg Take 1 Univers e 03-29 into lower tablet (40 it y of (PROTONIX) 00:00: 00:00 respiratory mg) by [place] 40 mg EC 00 :00 tract mouth tablet daily. [facility] pantoprazol 2021- No Aspiration 40mg Take 1 Univers e 03-29 into lower tablet (40 it y of (PROTONIX) 00:00: 00:00 respiratory mg) by [place] 40 mg EC 00 :00 tract mouth tablet daily. [facility] pantoprazol 2021- No Aspiration 40mg Take 1 Univers e 03-29 into lower tablet (40 it y of (PROTONIX) 00:00: 00:00 respiratory mg) by [place] 40 mg EC 00 :00 tract mouth tablet daily. [facility] baclofen 2020- No Muscle Take 1/2 Un y[facility] (LIORESAL) 03-29 10-27 spasm of tablet (5 ity of 10 mg 00:00: 00:00 back mg) PO q12 [place] tablet 00 :00 PRN back spasm. [facility] baclofen 2020- No Muscle Take 1/2 Un y[facility] (LIORESAL) 03-29 spasm of tablet (5 ity of 10 mg 00:00: 00:00 back mg) PO q12 [place] tablet 00 :00 PRN back MD spasm. [facility] baclofen 2020- No Muscle Take 1/2 Un y[facility] (LIORESAL) 03-29 spasm of tablet (5 ity of 10 mg 00:00: 00:00 back mg) PO q12 [place] tablet 00 :00 PRN back MD spasm. 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 [place] OLANZapine 2020- No Adjustment 2.5mg Take 1 [...] erso mg per specified daily. n tablet [facility] baclofen 2020- No Muscle Take 1/2 Un [place] (LIORESAL) 03-08 spasm of tablet (5 ity of 10 mg 00:00: 00:00 back mg) PO q12 [place] tablet 00 :00 PRN back spasm. Fuentes [facility] baclofen 2020- No Muscle Take 1/2 Un yakov (LIORESAL) 03-08 spasm of tablet (5 ity of 10 mg 00:00: 00:00 back mg) PO q12 [place] tablet 00 :00 PRN back spasm. Fuentes [facility] baclofen 5 2020- No Muscle 5mg Take 5 mg [facility] mg tab 03-08 spasm of by mouth ity of 00:00: 00:00 back every 12 [place] 00 :00 (twelve) MD hours. [facility] QUEtiapine 2021- No Aspiration 75mg 3 tablets [facility] (SEROquel) 03-07 into lower (75 mg) by ity of 25 mg 00:00: 00:00 respiratory feeding [place] tablet 00 :00 tract tube route MD at [facility]. [facility] QUEtiapine 2021- No Aspiration 75mg 3 tablets [facility] (SEROquel) 03-07 into lower (75 mg) by ity of 25 mg 00:00: 00:00 respiratory feeding [place] tablet 00 :00 tract tube route MD at [facility]. [facility] QUEtiapine 2021- No Aspiration 75mg 3 tablets [facility] (SEROquel) 03-07 into lower (75 mg) by ity of 25 mg 00:00: 00:00 respiratory feeding [place] tablet 00 :00 tract tube route at [facility]. [facility] QUEtiapine 2020- No Aspiration 75mg 3 tablets [facility] (SEROquel) 03-06 into lower (75 mg) by ity of 25 mg 00:00: 00:00 respiratory feeding [place] tablet 00 :00 tract tube route at [facility]. [facility] fluconazole 2020- No Acute 100mg Take 1 U nivers (DIFLUCAN) 03-03 kidney tablet ity of 100 mg 00:00: 04:59 injury due (100 mg) [place] tablet 00 :00 to by mouth hypovolemia daily for And erso 12 days. [facility] lidocaine 2021- No Acute 10mL Swish and [...] cell 8mg Take 1 [facility] (ZOFRAN) 8 9-03 02-23 carcinoma tablet (8 ity of mg tablet 00:00: 00:00 of upper mg) by Yevgeniy gonzales 00 :00 lobe of mouth MD right lung every 8 Bakari o (eight) n hours as Cancer needed for Center nausea or vomiting. memantine 2020- No Small cell 10mg Take 1 [facility] (Namenda) 03-02 10 carcinoma tablet (10 ity of 10 mg 00:00: 00:00 of upper mg) by [place] tablet 00 :00 lobe of mouth MD right lung twice Anderso daily. [facility] memantine 2020- No Small cell 10mg Take 1 [facility] (Namenda) 03-02 carcinoma tablet (10 ity of 10 mg 00:00: 00:00 of upper mg) by [place] tablet 00 :00 lobe of mouth MD right lung twice Anderso daily. [facility] baclofen 5 2020- No Muscle 5mg Take 5 mg [facility] mg tab 03-02 spasm of by mouth ity of 00:00: 00:00 back every 12 [place] 00 :00 (twelve) MD hours. [facility] pantoprazol 2020- No Aspiration 40mg Take 1 Univers e 02-28 into lower tablet (40 it y of (PROTONIX) 00:00: 00:00 respiratory mg) by [place] 40 mg EC 00 :00 tract mouth MD tablet daily. [facility] pantoprazol 2020- No Aspiration 40mg Take 1 Univers e 02-28 into lower tablet (40 it y of (PROTONIX) 00:00: 00:00 respiratory mg) by [place] 40 mg EC 00 :00 tract mouth MD tablet daily. [facility] loperamide Yes Aspiration 2mg Take 1 [facility] (IMODIUM) 2 8-31 into lower capsule (2 ity of mg capsule 00:00: respiratory mg) by [place] [address] tract mouth MD every 8 Anderso (eight) n hours as Cancer needed for Center diarrhea. Buy over the counter loperamide Yes Aspiration 2mg Take 1 [facility] (IMODIUM) 2 8-31 into lower capsule (2 ity of mg capsule 00:00: respiratory mg) by [place] [address] tract mouth MD every 8 Anderso (eight) n hours as Cancer needed for Center diarrhea. Buy over the counter loperamide Yes Aspiration 2mg Take 1 [facility] (IMODIUM) 2 8-31 into lower capsule (2 ity of mg capsule 00:00: respiratory mg) by [place] [address] tract mouth MD every 8 Anderso (eight) n hours as Cancer needed for Center diarrhea. Buy over the counter loperamide Yes Aspiration 2mg Take 1 [facility] (IMODIUM) 2 8-31 into lower capsule (2 ity of mg capsule 00:00: respiratory mg) by [place] [address] tract mouth MD every 8 Anderso (eight) n hours as Cancer needed for Center diarrhea. Buy over the counter loperamide Yes Aspiration 2mg Take 1 [facility] (IMODIUM) 2 8-31 into lower capsule (2 ity of mg capsule 00:00: respiratory mg) by [place] [address] tract mouth MD every 8 Anderso (eight) n hours as Cancer needed for Center diarrhea. Buy over the counter loperamide Yes Aspiration 2mg Take 1 [facility] (IMODIUM) 2 8-31 into lower capsule (2 ity of mg capsule 00:00: respiratory mg) by [place] [address] tract mouth MD every 8 Anderso (eight) n hours as Cancer needed for Center diarrhea. Buy over the counter loperamide Yes Aspiration 2mg Take 1 [facility] (IMODIUM) 2 8-31 into lower capsule (2 ity of mg capsule 00:00: respiratory mg) by [place] [address] tract mouth MD every 8 Anderso (eight) n hours as Cancer needed for Center diarrhea. Buy over the counter loperamide Yes Aspiration 2mg Take 1 [facility] (IMODIUM) 2 8-31 into lower capsule (2 ity of mg capsule 00:00: respiratory mg) by [place] [address] tract mouth MD every 8 Anderso (eight) n hours as Cancer needed for Center diarrhea. Buy over the counter loperamide Yes Aspiration 2mg Take 1 [facility] (IMODIUM) 2 8-31 into lower capsule (2 ity of mg capsule 00:00: respiratory mg) by [place] [address] tract mouth MD every 8 Anderso (eight) n hours as Cancer needed for Center diarrhea. Buy over the counter loperamide Yes Aspiration 2mg Take 1 [facility] (IMODIUM) 2 8- into lower capsule (2 ity of mg capsule 00:00: respiratory mg) by [place] 00 tract mouth MD every 8 Anderso (eight) n hours as Cancer needed for Center diarrhea. Buy over the counter loperamide Yes Aspiration 2mg Take 1 [facility] (IMODIUM) 2 - into lower capsule (2 ity of mg capsule 00:00: respiratory mg) by [place] 00 tract mouth MD every 8 Anderso [...] 12 Anderso syringe pulmonale (twelve) n hours. [facility] enoxaparin 2021- No Other 50mg Inject 0.5 [facility] (Lovenox) 02-2711 pulmonary mL (50 mg) ity of 60 mg/0.6 00:00: 00:00 embolism under the [place] mL 00 :00 with acute skin every MD prefilled cor 12 Anderso syringe pulmonale (twelve) n hours. [facility] enoxaparin 2021- No Other 50mg Inject [...] tablet hours as n needed Cancer (pain). [place] OLANZapine 2020- No Adjustment 2.5mg Take 1 [...] tablet hours as n needed Cancer (pain). [place] multivitamn Yes Aspiration 1{tbl} Take 1 [facility] n tab 7-23 into lower tablet by ity of tablet 00:00: respiratory mouth [place] 00 tract daily. MD Fuentes [facility]immerman [facility] multivitami Yes Aspiration 1{tbl} Take 1 [facility] n tab 7-23 into lower tablet by ity of tablet 00:00: respiratory mouth [place] 00 tract daily. MD Fuentes [facility]erman [facility] Yes Aspiration 1{tbl} Take 1 [facility] n tab 7-23 into lower tablet by ity of tablet 00:00: respiratory mouth [place] 00 tract daily. MD Fuentes [facility]immerman [facility] Yes Aspiration 1{tbl} Take 1 [facility] n tab 7-23 into lower tablet by ity of tablet 00:00: respiratory mouth [place] 00 tract daily. MD Fuentes [facility]erman [facility] Yes Aspiration 1{tbl} Take 1 [facility] n tab 7-23 into lower tablet by ity of tablet 00:00: respiratory mouth [place] 00 tract daily. MD Fuentes [facility]erman [facility] Yes Aspiration 1{tbl} Take 1 [facility] n tab 7-23 into lower tablet by ity of tablet 00:00: respiratory mouth [place] 00 tract daily. MD Fuentes [facility]erman [facility] Yes Aspiration 1{tbl} Take 1 [facility] n tab 7-23 into lower tablet by ity of tablet 00:00: respiratory mouth [place] 00 tract daily. MD Fuentes [facility] Yes Aspiration 1{tbl} Take 1 [facility] n tab 7-23 into lower tablet by ity of tablet 00:00: respiratory mouth [place] 00 tract daily. MD Fuentes [facility] Yes Aspiration 1{tbl} Take 1 [facility] n tab 7-23 into lower tablet by ity of tablet 00:00: respiratory mouth [place] 00 tract daily. MD Fuentes [facility]erman [facility] Yes Aspiration 1{tbl} Take 1 Univers n tab 7-23 into lower tablet by ity of tablet 00:00: respiratory mouth [place] 00 tract daily. MD Fuentes zimmerman [facility] Yes Aspiration 1{tbl} Take 1 Univers n tab 7-23 into lower tablet by ity of tablet 00:00: respiratory mouth [place] 00 tract daily. MD Fuentes zimmerman [facility] ferrous 2021- No 1{tbl} Take 1 Unive rs sulfate 325 7-22 05-17 tablet by it y of (65 FE) MG 00:00: 00:00 mouth [place] EC tablet 00 :00 daily. MD Fuentes zimmerman [facility] 2021- No 1{tbl} Take 1 Unive rs sulfate 325 7-22 05-17 tablet by it y of (65 FE) MG 00:00: 00:00 mouth [place] EC tablet 00 :00 daily. MD Fuentes zimmerman [facility] 2021- No 1{tbl} Take 1 Unive rs sulfate 325 7-22 05-17 tablet by it y of (65 FE) MG 00:00: 00:00 mouth [place] EC tablet 00 :00 daily. MD Fuentes zimmerman [facility] 2021- No 1{tbl} Take 1 Unive rs sulfate 325 7-22 05-17 tablet by it y of (65 FE) MG 00:00: 00:00 mouth [place] EC tablet 00 :00 daily. MD Fuentes zimmerman [facility] 2021- No 1{tbl} Take 1 Unive rs sulfate 325 7-22 05-17 tablet by it y of (65 FE) MG 00:00: 00:00 mouth [place] EC tablet 00 :00 daily. MD Fuentes zimmerman [facility] 2021- No 1{tbl} Take 1 Unive rs sulfate 325 7-22 05-17 tablet by it y of (65 FE) MG 00:00: 00:00 mouth [place] EC tablet 00 :00 daily. MD Fuentes zimmerman [facility] 2021- No 1{tbl} Take 1 Unive rs sulfate 325 7-22 05-17 tablet by it y of (65 FE) MG 00:00: 00:00 mouth [place] EC tablet 00 :00 daily. MD Fuentes zimmerman [facility] 2021- No 1{tbl} Take 1 Unive rs sulfate 325 7-22 05-17 tablet by it y of (65 FE) MG 00:00: 00:00 mouth [place] EC tablet 00 :00 daily. 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 [facility] buprenorphi Yes Opioid use 2{tbl} Place 2 Univers ne-naloxone 7-21 disorder, tablets ity of (SUBOXONE) 00:00: mild, in under the [place] 2 mg-0.5 mg 00 sustained tongue 3 MD sublingual remission (three) A nderso tablet times a n day. [facility] buprenorphi Yes Opioid use 2{tbl} Place 2 Univers ne-naloxone 7-21 disorder, tablets ity of (SUBOXONE) 00:00: mild, in under the [place] 2 mg-0.5 mg 00 sustained tongue 3 MD sublingual remission (three) A nderso tablet times a n day. [facility] Opioid use 2{tbl} Place 2 Univers ne-naloxone 7-21 disorder, tablets ity of (SUBOXONE) 00:00: mild, in under the [place] 2 mg-0.5 mg 00 sustained tongue 3 MD sublingual remission (three) A nderso tablet times a n day. [facility] Yes Opioid use 2{tbl} Place 2 Univers ne-naloxone 7-21 disorder, tablets ity of (SUBOXONE) 00:00: mild, in under the [place] 2 mg-0.5 mg 00 sustained tongue 3 MD sublingual remission (three) A nderso tablet times a n day. [facility] Yes Opioid use 2{tbl} Place 2 Univers ne-naloxone 7-21 disorder, tablets ity of (SUBOXONE) 00:00: mild, in under the [place] 2 mg-0.5 mg 00 sustained tongue 3 MD sublingual remission (three) A nderso tablet times a n day. [facility] b[facility]ren[facility] Yes Opioid use 2{tbl} Place 2 Univers ne-naloxone 7-21 disorder, tablets ity of (SUBOXONE) 00:00: mild, in under the [place] 2 mg-0.5 mg 00 sustained tongue 3 MD sublingual remission (three) A nderso tablet times a n day. [facility] buprenorphi Yes Opioid use 2{tbl} Place 2 Univers ne-naloxone 7-21 disorder, tablets ity of (SUBOXONE) 00:00: mild, in under the [place] 2 mg-0.5 mg 00 sustained tongue 3 MD sublingual remission (three) A nderso tablet times a n day. [facility] buprenorphi Yes Opioid use 2{tbl} Place 2 Univers ne-naloxone 7-21 disorder, tablets ity of (SUBOXONE) 00:00: mild, in under the [place] 2 mg-0.5 mg 00 sustained tongue 3 MD sublingual remission (three) A nderso tablet times a n day. [facility] buprenorphi Yes Opioid use 2{tbl} Place 2 Univers ne-naloxone 7-21 disorder, tablets ity of (SUBOXONE) 00:00: mild, in under the [place] 2 mg-0.5 mg 00 sustained tongue 3 MD sublingual remission (three) A nderso tablet times a n day. [facility] buprenorphi Yes Opioid use 2{tbl} Place 2 Univers ne-naloxone 7-21 disorder, tablets ity of (SUBOXONE) 00:00: mild, in under the [place] 2 mg-0.5 mg 00 sustained tongue 3 MD sublingual remission (three) A nderso tablet times a n day. [facility] ipratropium 2020-2021- No Pneumocysto USE 1 VIAL [...] Tube 250mL Give 250 Univers ired 11-17 feeding mL per ity of digestive 00:00: 00:00 diet G-tube 3 [place] as fxn 00 :00 (three) MD (peptamen times a Anderso 1.5) day. [facility] feeding nut.[email or web address] 2021- No Tube 250mL Give 250 Univers ired 11-17 feeding mL per ity of digestive 00:00: [...] MD every 12 Anderso (twelve) n hours. [facility] 2021- No Emphysema 600mg Take 1 Univers (MUCINEX) 10-0812 tablet ity of 600 mg 12 00:00: 04:59 (600 mg) [place] hr tablet 00 :00 by mouth MD every 12 Anderso (twelve) n hours. [facility] 2021- No Emphysema 600mg Take 1 Univers (MUCINEX) 10-08 tablet ity of 600 mg 12 00:00: 04:59 (600 mg) [place] hr tablet 00 :00 by mouth MD every 12 Anderso (twelve) n hours. [facility] 2021- No Emphysema 600mg Take 1 Univers (MUCINEX) 10-08 tablet ity of 600 mg 12 00:00: 04:59 (600 mg) [place] hr tablet 00 :00 by mouth MD every 12 Anderso (twelve) n hours. 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 Bakarijanice zimmerman [facility] lancets Yes Type 2 1{each} 1 each by [facility] 10-06 diabetes [place] ity o f 00:00: [place] route [place] with twice MD hyperglycem daily. 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 Bakarijanice zimmerman [facility] lancets Yes Type 2 1{each} 1 each by [facility] 10-06 diabetes [place] ity o f 00:00: [place] route [place] with twice MD hyperglycem daily. 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 Bakari zimmerman [facility] Immunizations Ordered Immunization Filled Date Status Comments Sour ce Name Immunization Name Pneumococcal 2022-03-24 Completed University o f Polysaccharide 00:00:00 [place] [facility] [place] Pneumococcal 2022-03-24 Completed University o f Polysaccharide 00:00:00 [place] Pneumococcal 2022-03-24 Completed University o f Polysaccharide 00:00:00 [place] Pneumococcal 2022-03-24 Completed University o f Polysaccharide 00:00:00 [place] MD Isaac [facility] Pneumococcal 2022-03-24 Completed University o f Polysaccharide 00:00:00 [place] Isaac [facility] [place] remdesivir 2020-08-22 Completed University of 00:00:00 [place] [facility] [place] remdesivir 2020-08-22 Completed University of 00:00:00 [place] [facility] [place] remdesivir 2020-08-22 Completed University of 00:00:00 [place] Isaac [facility] [place] remdesivir 2020-08-22 Completed University of 00:00:00 [place] [facility] [place] remdesivir 2020-08-22 Completed University of 00:00:00 [place] [facility] remdesivir 2020-08-22 Completed University of 00:00:00 [place] [facility] [place] remdesivir 2020-08-22 Completed University of 00:00:00 [place] [facility] remdesivir 2020-08-22 Completed University of 00:00:00 [place] [facility] remdesivir 2020-08-22 Completed University of 00:00:00 [place] [facility] [place] remdesivir 2020-08-22 Completed University of 00:00:00 [place] [facility] remdesivir 2020-08-22 Completed University of 00:00:00 [place] [facility] [place] remdesivir 2020-08-22 Completed University of 00:00:00 [place] [facility] [place] remdesivir 2020-08-22 Completed University of 00:00:00 [place] [facility] [place] remdesivir 2020-08-22 Completed University of 00:00:00 [place] [facility] [place] remdesivir 2020-08-22 Completed University of 00:00:00 [place] [facility] [place] remdesivir 2020-08-22 Completed University of 00:00:00 [place] [facility] [place] remdesivir 2020-08-22 Completed University of 00:00:00 [place] [facility] [place] remdesivir 2020-08-22 Completed University of 00:00:00 [place] [facility] [place] remdesivir 2020-08-22 Completed University of 00:00:00 [place] [facility] [place] remdesivir 2020-08-22 Completed University of 00:00:00 [place] [facility] remdesivir 2020-08-21 Completed University of 00:00:00 [place] Isaac [facility] remdesivir 2020-08-21 Completed University of 00:00:00 [place] MD Isaac [facility] remdesivir 2020-08-21 Completed University of 00:00:00 [place] Isaac [facility] remdesivir 2020-08-21 Completed University of 00:00:00 [place] Isaac [facility] remdesivir 2020-08-21 Completed University of 00:00:00 [place] Isaac [facility] remdesivir 2020-08-21 Completed University of 00:00:00 [place] Isaac [facility] remdesivir 2020-08-21 Completed University of 00:00:00 [place] Isaac [facility] remdesivir 2020-08-21 Completed University of 00:00:00 [place] Isaac [facility] remdesivir 2020-08-21 Completed University of 00:00:00 [place] Isaac [facility] remdesivir 2020-08-21 Completed University of 00:00:00 [place] Isaac [facility] remdesivir 2020-08-20 Completed University of 00:00:00 [place] Isaac [facility] remdesivir 2020-08-20 Completed University of 00:00:00 [place] Isaac [facility] remdesivir 2020-08-20 Completed University of 00:00:00 [place] Isaac [facility] remdesivir 2020-08-20 Completed University of 00:00:00 [place] Isaac [facility] remdesivir 2020-08-20 Completed University of 00:00:00 [place] Isaac [facility] remdesivir 2020-08-20 Completed University of 00:00:00 [place] Isaac [facility] remdesivir 2020-08-20 Completed University of 00:00:00 [place] Isaac [facility] remdesivir 2020-08-20 Completed University of 00:00:00 [place] Isaac [facility] remdesivir 2020-08-20 Completed University of 00:00:00 [place] Isaac [facility] remdesivir 2020-08-20 Completed University of 00:00:00 [place] Isaac [facility] remdesivir 2020-08-19 Completed University of 00:00:00 [place] Isaac [facility] remdesivir 2020-08-19 Completed University of 00:00:00 [place] Isaac [facility] remdesivir 2020-08-19 Completed University of 00:00:00 [place] [facility] [facility] remdesivir 2020-08-19 Completed University of 00:00:00 [place] Isaac [facility] remdesivir 2020-08-19 Completed University of 00:00:00 [place] Isaac [facility] remdesivir 2020-08-19 Completed University of 00:00:00 [place] [facility] [facility] remdesivir 2020-08-19 Completed University of 00:00:00 [place] [facility] [facility] remdesivir 2020-08-19 Completed University of 00:00:00 [place] Isaac [facility] remdesivir 2020-08-19 Completed University of 00:00:00 [place] Isaac [facility] remdesivir 2020-08-19 Completed University of 00:00:00 [place] Isaac [facility] remdesivir 2020-08-18 Completed University of 00:00:00 [place] [facility] [facility] remdesivir 2020-08-18 Completed University of 00:00:00 [place] [facility] [facility] remdesivir 2020-08-18 Completed University of 00:00:00 [place] [facility] [facility] remdesivir 2020-08-18 Completed University of 00:00:00 [place] [facility] remdesivir 2020-08-18 Completed University of 00:00:00 [place] Isaac [facility] remdesivir 2020-08-18 Completed University of 00:00:00 [place] [facility] [facility] remdesivir 2020-08-18 Completed University of 00:00:00 [place] [facility] remdesivir 2020-08-18 Completed University of 00:00:00 [place] [facility] remdesivir 2020-08-18 Completed University of 00:00:00 [place] [facility] remdesivir 2020-08-18 Completed University of 00:00:00 [place] Isaac [facility] remdesivir 2020-08-03 Completed University of 00:00:00 [place] [facility] remdesivir 2020-08-03 Completed University of 00:00:00 [place] Isaac [facility] remdesivir 2020-08-03 Completed University of 00:00:00 [place] Isaac [facility] remdesivir 2020-08-03 Completed University of 00:00:00 [place] Isaac [facility] remdesivir 2020-08-03 Completed University of 00:00:00 [place] [facility] remdesivir 2020-08-03 Completed University of 00:00:00 [place] [facility] remdesivir 2020-08-03 Completed University of 00:00:00 [place] Isaac [facility] remdesivir 2020-08-03 Completed University of 00:00:00 [place] Isaac [facility] remdesivir 2020-08-03 Completed University of 00:00:00 [place] Isaac [facility] remdesivir 2020-08-03 Completed University of 00:00:00 [place] [facility] remdesivir 2020-08-02 Completed University of 00:00:00 [place] [facility] remdesivir 2020-08-02 Completed University of 00:00:00 [place] [facility] remdesivir 2020-08-02 Completed University of 00:00:00 [place] [facility] remdesivir 2020-08-02 Completed University of 00:00:00 [place] [facility] remdesivir 2020-08-02 Completed University of 00:00:00 [place] Isaac [facility] remdesivir 2020-08-02 Completed University of 00:00:00 [place] Isaac [facility] remdesivir 2020-08-02 Completed University of 00:00:00 [place] Isaac [facility] remdesivir 2020-08-02 Completed University of 00:00:00 [place] Isaac [facility] remdesivir 2020-08-02 Completed University of 00:00:00 [place] Isaac [facility] remdesivir 2020-08-02 Completed University of 00:00:00 [place] Isaac [facility] remdesivir 2020-08-02 Completed University of 00:00:00 [place] Isaac [facility] remdesivir 2020-08-02 Completed University of 00:00:00 [place] Isaac [facility] remdesivir 2020-08-02 Completed University of 00:00:00 [place] Isaac [facility] remdesivir 2020-08-02 Completed University of 00:00:00 [place] Isaac [facility] remdesivir 2020-08-02 Completed University of 00:00:00 [place] [facility] remdesivir 2020-08-02 Completed University of 00:00:00 [place] [facility] remdesivir 2020-08-02 Completed University of 00:00:00 [place] [facility] remdesivir 2020-08-02 Completed University of 00:00:00 [place] Isaac [facility] remdesivir 2020-08-02 Completed University of 00:00:00 [place] Isaac [facility] remdesivir 2020-08-02 Completed University of 00:00:00 [place] [facility] remdesivir 2020-08-01 Completed University of 00:00:00 [place] [facility] [place] remdesivir 2020-08-01 Completed University of 00:00:00 [place] Isaac [facility] [place] remdesivir 2020-08-01 Completed University of 00:00:00 [place] [facility] remdesivir 2020-08-01 Completed University of 00:00:00 [place] [facility] [place] remdesivir 2020-08-01 Completed University of 00:00:00 [place] [facility] remdesivir 2020-08-01 Completed University of 00:00:00 [place] [facility] remdesivir 2020-08-01 Completed University of 00:00:00 [place] [facility] remdesivir 2020-08-01 Completed University of 00:00:00 [place] [facility] remdesivir 2020-08-01 Completed University of 00:00:00 [place] Isaac [facility] remdesivir 2020-08-01 Completed University of 00:00:00 [place] [facility] remdesivir 2020-07-31 Completed University of 00:00:00 [place] [facility] remdesivir 2020-07-31 Completed University of 00:00:00 [place] [facility] remdesivir 2020-07-31 Completed University of 00:00:00 [place] [facility] remdesivir 2020-07-31 Completed University of 00:00:00 [place] [facility] [place] remdesivir 2020-07-31 Completed University of 00:00:00 [place] Isaac [facility] [place] remdesivir 2020-07-31 Completed University of 00:00:00 [place] Isaac [facility] [place] remdesivir 2020-07-31 Completed University of 00:00:00 [place] Isaac [facility] [place] remdesivir 2020-07-31 Completed University of 00:00:00 [place] MD Isaac [facility] [place] remdesivir 2020-07-31 Completed University of 00:00:00 [place] MD Isaac [facility] [place] remdesivir 2020-07-31 Completed University of 00:00:00 [place] MD Isaac [facility] [place] remdesivir 2020-07-30 Completed University of 00:00:00 [place] MD Isaac [facility] [place] remdesivir 2020-07-30 Completed University of 00:00:00 [place] MD Isaac [facility] [place] remdesivir 2020-07-30 Completed University of 00:00:00 [place] MD Isaac [facility] remdesivir 2020-07-30 Completed University of 00:00:00 [place] MD Isaac [facility] [place] remdesivir 2020-07-30 Completed University of 00:00:00 [place] MD Isaac [facility] [place] remdesivir 2020-07-30 Completed University of 00:00:00 [place] Isaac [facility] [place] remdesivir 2020-07-30 Completed University of 00:00:00 [place] MD Isaac [facility] [place] remdesivir 2020-07-30 Completed University of 00:00:00 [place] Isaac [facility] [place] remdesivir 2020-07-30 Completed University of 00:00:00 [place] remdesivir 2020-07-30 Completed University of 00:00:00 [place] [facility] Influenza Split High 2020-03-29 Completed Univ ersity of Dose Preservative 00:00:00 [place] M [place] [facility] Zoster Recombinant 2020-03-29 Completed Univer sity of 00:00:00 [place] MD Poncho Fernandes [facility] Influenza Split High 2020-03-29 Completed Univ ersity of Dose Preservative 00:00:00 [place] M D Free [facility] Zoster Recombinant 2020-03-29 Completed Univer sity of 00:00:00 [place] Fernandes [facility] Influenza Split High 2020-03-29 Completed Univ ersity of Dose Preservative 00:00:00 [place] M D Free [facility] [place] Zoster Recombinant 2020-03-29 Completed Univer sity of 00:00:00 [place] MD Poncho Fernandes [facility] Influenza Split High 2020-03-29 Completed Univ ersity of Dose Preservative 00:00:00 [place] M D Free [facility] Zoster Recombinant 2020-03-29 Completed Univer sity of 00:00:00 [place] MD Poncho Fernandes [facility] Influenza Split High 2020-03-29 Completed Univ ersity of Dose Preservative 00:00:00 [place] M D Free [facility] [place] Zoster Recombinant 2020-03-29 Completed Univer sity of 00:00:00 [place] [facility] Influenza Split High 2020-03-29 Completed Univ ersity of Dose Preservative 00:00:00 [place] M D Free [facility] [place] Zoster Recombinant 2020-03-29 Completed Univer sity of 00:00:00 [place] MD Poncho Fernandes [facility] Influenza Split High 2020-03-29 Completed Univ ersity of Dose Preservative 00:00:00 [place] M D Free [facility] Zoster Recombinant 2020-03-29 Completed Univer sity of 00:00:00 [place] MD Poncho Fernandes [facility] Influenza Split High 2020-03-29 Completed Univ ersity of Dose Preservative 00:00:00 [place] M D Free [facility] [place] Zoster Recombinant 2020-03-29 Completed Univer sity of 00:00:00 [place] MD Poncho Fernandes [facility] Influenza Split High 2020-03-29 Completed Univ ersity of Dose Preservative 00:00:00 [place] M D Free [facility] Zoster Recombinant 2020-03-29 Completed Univer sity of 00:00:00 [place] MD Poncho Fernandes [facility] Influenza Split High 2020-03-29 Completed Univ ersity of Dose Preservative 00:00:00 [place] M D Free [facility] [place] Zoster Recombinant 2020-03-29 Completed Univer sity of 00:00:00 [place] remdesivir Unknown Completed [facility] [place] remdesivir Unknown Completed [facility] remdesivir Unknown Completed [facility] remdesivir Unknown Completed [facility] remdesivir Unknown [facility]pleted [facility] remdesivir Unknown Completed [facility] remdesivir Unknown Completed [facility] remdesivir Unknown Completed [facility] remdesivir Unknown Completed [facility] remdesivir Unknown Completed [facility] remdesivir Unknown Completed [facility] remdesivir Unknown Completed [facility] [place] Influenza Split High Unknown Completed Univ ersity of Dose Preservative [place] M D [facility] [facility] [place] Zoster Recombinant Unknown Com[facility] Pneumococcal Unknown Completed [place] o [facility] [place] Vital Signs Vital Name Observation Time Observation Value Comments Source WEIGHT 2020-04-21 12:35:00 49.6 kg HEIGHT 2020-03-31 09:15:13 162 cm WEIGHT 2020-03-31 09:15:13 49 kg HEIGHT 2020-03-02 10:27:01 162 cm WEIGHT 2020-03-02 10:27:01 46.8 kg Systolic blood 2023-01-22 19:19:21 104 mm[Hg] Univer sity of [facility] Diastolic blood 2023-01-22 19:19:21 65 mm[Hg] Unive rsity of pressure [facility] Heart rate 2023-01-22 19:19:21 66 /min [facility] Body temperature 2023-01-22 19:19:21 36.5 Lizabeth Univ ers[facility] Respiratory rate 2023-01-22 19:19:21 17 /min [facility] Body weight 2023-01-22 19:19:21 44.8 kg [facility] BMI 2023-01-22 19:19:21 16.86 kg/m2 [facility] Oxygen saturation in 2023-01-22 19:19:21 96 /min University of Arterial blood by [place] MD A nderson Pulse oximetry [facility] Systolic blood 2022-09-13 16:01:18 97 mm[Hg] Univer [...] Ramírez nderson P[facility] Body height 2022-06-07 [...] 2021-10-24 21:41:00 18 /min Univ [facility] [place] [facility] Systolic blood 2021-10-24 17:30:00 119 mm[Hg] Univer sity of pressure [place] [facility] Diastolic blood 2021-10-24 17:30:00 78 mm[Hg] Unive rsity of pressure [place] MD Villegas on [facility] Oxygen saturation in 2021-10-24 17:30:00 96 /min University of Arterial blood by [facility] [place] Pulse oximetry [facility] Body temperature 2021-10-24 16:48:00 36.89 Lizabeth [facility] [place] [facility] Villegas on [facility] Body weight 2021-10-24 09:00:00 55 kg Universi ty [facility] MD Villegas on [facility] BMI 2021-10-24 09:00:00 19.57 kg/m2 [facility] MD Villegas [facility] Body height 2021-10-15 14:57:00 167.6 cm [facility] MD Villegas [facility] Procedures Procedure Date / Time Performing Clinician Source Performed CT CHEST W CONTRAST 2023-01-22 15:49:00 Grey Luciano Uni [facility] COMPLETE BLOOD COUNT W/ 2023-01-22 14:24:00 Grey Luciano [facility] DIFFERENTIAL [facility] COMPREHENSIVE METABOLIC 2023-01-22 14:24:00 Grey Luciano [facility] PANEL [facility] Results CBC 2023-01-22 14:24:00 Grey Luciano [facility] MANUAL DIFFERENTIAL 2023-01-22 14:24:00 Grey Luciano [facility] GLUCOSE LEVEL 2023-01-22 14:24:00 Grey Luciano [facility] BLOOD UREA NITROGEN 2023-01-22 14:24:00 Grey Luciano [facility] ELECTROLYTE PANEL 2023-01-22 14:24:00 Grey Luciano Unive rsity of [facility] SERUM CREATININE 2023-01-22 14:24:00 Grey Luciano [facility] .GLOMERULAR FILTRATION 2023-01-22 14:24:00 Grey Luciano [facility] RATE [facility] CALCIUM LEVEL TOTAL 2023-01-22 14:24:00 [facility] 2023-01-22 14:24:00 Grey Luciano [facility] ALKALINE PHOSPHATASE 2023-01-22 14:24:00 Grey Luc[facility] ALANINE AMINOTRANSFERASE 2023-01-22 14:24:00 Grey Luciano [facility] ASPARTATE AMINOTRANSFERASE 2023-01-22 14:24:00 Rodrigo Luciano [facility] TOTAL PROTEIN 2023-01-22 14:24:00 Grey Luciano [facility] FRACTIONATED BILIRUBIN 2023-01-22 14:24:00 Grey Luciano [facility] POC CREATININE 2023-01-22 14:19:00 Grey Luciano [facility] CT CHEST W CONTRAST 2022-09-13 13:57:00 Stella Lima [facility] POC CREATININE 2022-09-13 13:38:00 Stella Lima [facility] COMPLETE BLOOD COUNT W/ 2022-09-13 13:10:00 [facility] COMPREHENSIVE METABOLIC 2022-09-13 13:10:00 [facility] Results CBC 2022-09-13 13:10:00 Maria Fernanda [facility] MANUAL DIFFERENTIAL 2022-09-13 13:10:00 Maria Fernanda [place] V. [facility] GLUCOSE LEVEL 2022-09-13 13:10:00 Fossella, Maria Fernanda V. [facility] BLOOD UREA NITROGEN 2022-09-13 13:10:00 Maria Fernanda [place] V. [facility] ELECTROLYTE PANEL 2022-09-13 13:10:00 Maria Fernanda [place] V. [facility] SERUM CREATININE 2022-09-13 13:10:00 Maria Fernanda [place] V. [facility] .GLOMERULAR FILTRATION 2022-09-13 13:10:00 Maria Fernanda [facility] CALCIUM LEVEL TOTAL 2022-09-13 13:10:00 Maria Fernanda [place] V. [facility] ALBUMIN LEVEL 2022-09-13 13:10:00 Maria Fernanda [place] V. [facility] ALKALINE PHOSPHATASE 2022-09-13 13:10:00 Maria Fernanda [place] V. [facility] ALANINE AMINOTRANSFERASE 2022-09-13 13:10:00 Maria Fernanda [place] V. [facility] ASPARTATE AMINOTRANSFERASE 2022-09-13 13:10:00 Maria Fernanda Washington [facility] TOTAL PROTEIN 2022-09-13 13:10:00 Maria Fernanda [place] V. [facility] FRACTIONATED BILIRUBIN 2022-09-13 13:10:00 Maria Fernanda [place] [facility] COMPLETE BLOOD COUNT W/ 2022-06-07 15:54:00 Stella Lima [facility] [place] DIFFERENTIAL [facility] COMPREHENSIVE METABOLIC 2022-06-07 15:54:00 Stella Lima Un iversity [facility] PANEL [facility] FREE THYROXINE 2022-06-07 15:54:00 Stella Lima [facility] MAGNESIUM LEVEL 2022-06-07 15:54:00 Stella Lima [facility] TOTAL T3 2022-06-07 15:54:00 Stella Lima [facility] THYROID STIMULATING 2022-06-07 15:54:00 Stella Lima [facility] HORMONE [facility] URIC ACID 2022-06-07 15:54:00 Stella Lima [facility] Results CBC 2022-06-07 15:54:00 Stella Lima [facility] MANUAL DIFFERENTIAL 2022-06-07 15:54:00 Stella Lima [facility] GLUCOSE LEVEL 2022-06-07 15:54:00 Stella Lima [facility] BLOOD UREA NITROGEN 2022-06-07 15:54:00 Stella Lima [facility] SERUM CREATININE 2022-06-07 15:54:00 Stella Lima [facility] .GLOMERULAR FILTRATION 2022-06-07 15:54:00 Stella Lima [facility] RATE [facility] CALCIUM LEVEL TOTAL 2022-06-07 15:54:00 Stella Lima [facility] ALBUMIN LEVEL 2022-06-07 15:54:00 Stella Lima [facility] ALKALINE PHOSPHATASE 2022-06-07 15:54:00 Stella Lima [facility] ALANINE AMINOTRANSFERASE 2022-06-07 15:54:00 Stella Lima [facility] ASPARTATE AMINOTRANSFERASE 2022-06-07 15:54:00 Stella Lima [facility] TOTAL PROTEIN 2022-06-07 15:54:00 Stella Lima [facility] FRACTIONATED BILIRUBIN 2022-06-07 15:54:00 Stella Lima [facility] ELECTROLYTE PANEL 2022-06-07 15:54:00 Stella Lima [facility] PETCT SUBSEQUENT TREATMENT 2022-06-07 15:27:59 Stella Lima [facility] STRATEGY [facility] COMPLETE BLOOD COUNT W/ 2021-10-24 10:53:00 Tod Glass V. [facility] DIFFERENTIAL [facility] COMPREHENSIVE METABOLIC 2021-10-24 10:53:00 Tod Glass V. [facility] PANEL [facility] MAGNESIUM LEVEL 2021-10-24 10:53:00 Tod Glass V. [facility] PHOSPHORUS LEVEL 2021-10-24 10:53:00 Tod Glass V. [facility] Results CBC 2021-10-24 10:53:00 Tod Glass V. [facility] MANUAL DIFFERENTIAL 2021-10-24 10:53:00 Tod Glass V. [facility] GLUCOSE LEVEL 2021-10-24 10:53:00 Tod Glass V. [facility] BLOOD UREA NITROGEN 2021-10-24 10:53:00 Tod Glass V. [facility] ELECTROLYTE PANEL 2021-10-24 10:53:00 Tod Glass V. [facility] SERUM CREATININE 2021-10-24 10:53:00 Tod Glass V. [facility] .GLOMERULAR FILTRATION 2021-10-24 10:53:00 Tod Glass V. [facility] RATE [facility] CALCIUM LEVEL TOTAL 2021-10-24 10:53:00 Tod Glass V. [facility] ALBUMIN LEVEL 2021-10-24 10:53:00 Tod Glass V. [facility] ALKALINE PHOSPHATASE 2021-10-24 10:53:00 Tod Glass V. [facility] ALANINE AMINOTRANSFERASE 2021-10-24 10:53:00 Tod Glass V. [facility] ASPARTATE AMINOTRANSFERASE 2021-10-24 10:53:00 [facility] 2021-10-24 10:53:00 Tod Glass V. [facility] FRACTIONATED BILIRUBIN 2021-10-24 10:53:00 Tod Glass [facility] OSCILLATORY PEP 2021-10-23 13:00:13 Tod Glass V. [facility] COMPLETE BLOOD COUNT W/ 2021-10-23 12:28:00 Tod Glass [facility] DIFFERENTIAL [facility] COMPREHENSIVE METABOLIC 2021-10-23 12:28:00 Tod Glass [facility] PANEL [facility] MAGNESIUM LEVEL 2021-10-23 12:28:00 Tod Glass V. [facility] PHOSPHORUS LEVEL 2021-10-23 12:28:00 Tod Glass V. [facility] Results CBC 2021-10-23 12:28:00 Tod Glass V. [facility] MANUAL DIFFERENTIAL 2021-10-23 12:28:00 Tod Glass V. [facility] GLUCOSE LEVEL 2021-10-23 12:28:00 oTd Glass V. [facility] BLOOD UREA NITROGEN 2021-10-23 12:28:00 Tod Glass V. [facility] ELECTROLYTE PANEL 2021-10-23 12:28:00 Tod Glass V. [facility] SERUM CREATININE 2021-10-23 12:28:00 Tod Glass V. [facility] .GLOMERULAR FILTRATION 2021-10-23 12:28:00 Tod Glass [facility] RATE [facility] CALCIUM LEVEL TOTAL 2021-10-23 12:28:00 Tod Glass V. [facility] ALBUMIN LEVEL 2021-10-23 12:28:00 Tod Glass V. [facility] ALKALINE PHOSPHATASE 2021-10-23 12:28:00 Tod Glass V. [facility] ALANINE AMINOTRANSFERASE 2021-10-23 12:28:00 Tod Glass V. Uni [facility] ASPARTATE AMINOTRANSFERASE 2021-10-23 12:28:00 [facility] T[facility]OTEIN 2021-10-23 12:28:00 Tod Glass V. [facility] FRACTIONATED BILIRUBIN 2021-10-23 12:28:00 Tod Glass V. [facility] OSCILLATORY PEP 2021-10-22 19:00:57 Tod Glass V. [facility] OSCILLATORY PEP 2021-10-22 13:00:14 Tod Glass V. [facility] COMPLETE BLOOD COUNT W/ 2021-10-22 11:48:00 Tod Glass V. [facility] DIFFERENTIAL [facility] COMPREHENSIVE METABOLIC 2021-10-22 11:48:00 Tod Glass V. [facility] PANEL [facility] MAGNESIUM LEVEL 2021-10-22 11:48:00 Tod Glass V. [facility] PHOSPHORUS LEVEL 2021-10-22 11:48:00 Tod Glass V. [facility] IGG SUBCLASSES, SERUM 2021-10-22 11:48:00 Tod Glass [facility] IMMUNOGLOBULIN G SERUM 2021-10-22 11:48:00 Tod [facility] IMMUNOGLOBULIN A SERUM 2021-10-22 11:48:00 Tod Glass V. [facility] Results CBC 2021-10-22 11:48:00 Tod Glass V. [facility] MANUAL DIFFERENTIAL 2021-10-22 11:48:00 Tod Glass V. [facility] GLUCOSE LEVEL 2021-10-22 11:48:00 Tod Glass V. [facility] BLOOD UREA NITROGEN 2021-10-22 11:48:00 Tod Glass V. [facility] ELECTROLYTE PANEL 2021-10-22 11:48:00 Tod Glass V. [facility] SERUM CREATININE 2021-10-22 11:48:00 Tod Glass V. [facility] .GLOMERULAR FILTRATION 2021-10-22 11:48:00 Tod Glass [facility]. [facility] CALCIUM LEVEL TOTAL 2021-10-22 11:48:00 Tod Glass V. [facility] ALBUMIN LEVEL 2021-10-22 11:48:00 Tod Glass V. [facility] ALKALINE PHOSPHATASE 2021-10-22 11:48:00 Tod Glass V. [facility] ALANINE AMINOTRANSFERASE 2021-10-22 11:48:00 Tod Glass [facility] ASPARTATE AMINOTRANSFERASE 2021-10-22 11:48:00 [facility] TOTAL PROTEIN 2021-10-22 11:48:00 Tod Glass V. [facility] FRACTIONATED BILIRUBIN 2021-10-22 11:48:00 Tod Glass [facility] OSCILLATORY PEP 2021-10-22 01:00:11 Tod Glass V. [facility] XR CHEST 1 VW 2021-10-21 20:44:00 Tod Glass V. [facility] BLOODCULTURE 2021-10-21 14:09:00 Tod Glass V. [facility] FUNGAL BLOODCULTURE 2021-10-21 14:09:00 Tod Glass V. [facility] COMPLETE BLOOD COUNT W/ 2021-10-21 11:02:00 Tod Glass V. [facility] DIFFERENTIAL [facility] COMPREHENSIVE METABOLIC 2021-10-21 11:02:00 Tod Glass V. [facility] PANEL [facility] MAGNESIUM LEVEL 2021-10-21 11:02:00 Tod Glass V. [facility] PHOSPHORUS LEVEL 2021-10-21 11:02:00 Tod Glass V. [facility] Results CBC 2021-10-21 11:02:00 Tod Glass V. [facility] MANUAL DIFFERENTIAL 2021-10-21 11:02:00 Tod Glass V. [facility] GLUCOSE LEVEL 2021-10-21 11:02:00 Tod Glass V. [facility] BLOOD UREA NITROGEN 2021-10-21 11:02:00 Tod Glass V. [facility] ELECTROLYTE PANEL 2021-10-21 11:02:00 Tod Glass V. [facility] SERUM CREATININE 2021-10-21 11:02:00 Tod Glass V. [facility] .GLOMERULAR FILTRATION 2021-10-21 11:02:00 Tod Glass V. [facility] RATE [facility] CALCIUM LEVEL TOTAL 2021-10-21 11:02:00 Tod Glass V. [facility] ALBUMIN LEVEL 2021-10-21 11:02:00 Tod Glass V. [facility] ALKALINE PHOSPHATASE 2021-10-21 11:02:00 Tod Glass V. [facility] ALANINE AMINOTRANSFERASE 2021-10-21 11:02:00 Tod Glass V. [facility] ASPARTATE AMINOTRANSFERASE 2021-10-21 11:02:00 Tod Glass V. [facility] TOTAL PROTEIN 2021-10-21 11:02:00 Tod Glass V. [facility] FRACTIONATED BILIRUBIN 2021-10-21 11:02:00 Tod Glasse [facility] EKG, 12-LEAD (PORTABLE) 2021-10-21 00:00:00 Tod Glass V. [facility] XR ABDOMEN 1 VW PORTABLE 2021-10-20 19:19:00 Tod Glass [facility]. [facility] PEP 2021-10-20 19:00:49 Tod Glass V. [facility] OSCILLATORY PEP 2021-10-20 13:00:11 Tod Glass V. [facility] COMPLETE BLOOD COUNT W/ 2021-10-20 11:10:00 Tod Glass V. [facility] DIFFERENTIAL [facility] COMPREHENSIVE METABOLIC 2021-10-20 11:10:00 Tod Glass V. [facility] PANEL [facility] MAGNESIUM LEVEL 2021-10-20 11:10:00 Tod Glass V. [facility] PHOSPHORUS LEVEL 2021-10-20 11:10:00 Tod Glass V. [facility] Results CBC 2021-10-20 11:10:00 Tod Glass V. [facility] MANUAL DIFFERENTIAL 2021-10-20 11:10:00 Tod Glass V. [facility] GLUCOSE LEVEL 2021-10-20 11:10:00 Tod Glass V. [facility] BLOOD UREA NITROGEN 2021-10-20 11:10:00 Tod Glass V. [facility] ELECTROLYTE PANEL 2021-10-20 11:10:00 Tod Glass V. [facility] SERUM CREATININE 2021-10-20 11:10:00 Tod Glass V. [facility] .GLOMERULAR FILTRATION 2021-10-20 11:10:00 Tod Glass V. [facility] RATE [facility] CALCIUM LEVEL TOTAL 2021-10-20 11:10:00 Tod Glass V. [facility] ALBUMIN LEVEL 2021-10-20 11:10:00 Tod Glass V. [facility] ALKALINE PHOSPHATASE 2021-10-20 11:10:00 Tod Glass V. [facility] ALANINE AMINOTRANSFERASE 2021-10-20 11:10:00 Tod Glass V. [facility] ASPARTATE AMINOTRANSFERASE 2021-10-20 11:10:00 [facility] TOTAL PROTEIN 2021-10-20 11:10:00 Tod Glass V. [facility] FRACTIONATED BILIRUBIN 2021-10-20 11:10:00 Tod Glass V. [facility] OSCILLATORY PEP 2021-10-20 01:00:09 Tod Glass V. [facility] OSCILLATORY PEP 2021-10-19 19:00:53 Tod Glass V. [facility] PATHOLOGY BIOPSY 2021-10-19 18:35:00 Edwige Rod [facility] INTERPRETATION [facility] UPPER GASTROINTESTINAL 2021-10-19 18:14:00 Edwige Rod [facility] ENDOSCOPY OF ESOPHAGUS, MD [facility] STOMACH, AND DUODENUM WITH Cente r BIOPSY OSCILLATORY PEP 2021-10-19 14:01:42 Tod Glass V. [facility] COMPLETE BLOOD COUNT W/ 2021-10-19 12:18:00 Tod Glass V. [facility] DIFFERENTIAL [facility] COMPREHENSIVE METABOLIC 2021-10-19 12:18:00 Tod Glass V. [facility] MAGNESIUM LEVEL 2021-10-19 12:18:00 Tod Glass V. [facility] PHOSPHORUS LEVEL 2021-10-19 12:18:00 Tod Glass V. [facility] Results CBC 2021-10-19 12:18:00 Tod Glass V. [facility] MANUAL DIFFERENTIAL 2021-10-19 12:18:00 Tod Glass V. [facility] GLUCOSE LEVEL 2021-10-19 12:18:00 Tod Glass V. [facility] BLOOD UREA NITROGEN 2021-10-19 12:18:00 oTd Glass V. [facility] ELECTROLYTE PANEL 2021-10-19 12:18:00 Tod Glass V. [facility] SERUM CREATININE 2021-10-19 12:18:00 Tod Glass V. [facility] .GLOMERULAR FILTRATION 2021-10-19 12:18:[address] [facility] CALCIUM LEVEL TOTAL 2021-10-19 12:18:00 Tod Glass V. [facility] ALBUMIN LEVEL 2021-10-19 12:18:00 Tod Glass V. [facility] ALKALINE PHOSPHATASE 2021-10-19 12:18:00 Tod Glass V. [facility] ALANINE AMINOTRANSFERASE 2021-10-19 12:18:00 Tod Glass [facility]. [facility] ASPARTATE AMINOTRANSFERASE 2021-10-19 12:18:00 Tod Glass [facility]. [facility] TOTAL PROTEIN 2021-10-19 12:18:00 Tod Glass V. [facility] FRACTIONATED BILIRUBIN 2021-10-19 12:18:00 Tod Glass [facility] XR CHEST 1 VW 2021-10-18 21:15:00 Tod Glass V. [facility] POC GLUCOSE SCREEN 2021-10-18 11:47:00 Tod Glass V. [facility] COMPLETE BLOOD COUNT W/ 2021-10-18 09:25:00 Tod Glass V. [facility] DIFFERENTIAL [facility] COMPREHENSIVE METABOLIC 2021-10-18 09:25:00 Tod Glass V. [facility] PANEL [facility] MAGNESIUM LEVEL 2021-10-18 09:25:00 Tod Glass V. [facility] PHOSPHORUS LEVEL 2021-10-18 09:25:00 Tod Glass V. [facility] Results CBC 2021-10-18 09:25:00 Tod Glass V. [facility] MANUAL DIFFERENTIAL 2021-10-18 09:25:00 Tod Glass V. [facility] GLUCOSE LEVEL 2021-10-18 09:25:00 Tod Glass V. [facility] BLOOD UREA NITROGEN 2021-10-18 09:25:00 Tod Glass V. [facility] ELECTROLYTE PANEL 2021-10-18 09:25:00 Tod Glass V. [facility] SERUM CREATININE 2021-10-18 09:25:00 Tod Glass V. [facility] .GLOMERULAR FILTRATION 2021-10-18 09:25:00 Tod Glass V. [facility] R[facility] CALCIUM LEVEL TOTAL 2021-10-18 09:25:00 Tod Glass V. [facility] ALBUMIN LEVEL 2021-10-18 09:25:00 Tod Glass V. [facility] ALKALINE PHOSPHATASE 2021-10-18 09:25:00 Tod Glass V. [facility] ALANINE AMINOTRANSFERASE 2021-10-18 09:25:00 Tod Glass [facility]. [facility] ASPARTATE AMINOTRANSFERASE 2021-10-18 09:25:00 Tod Glass [facility]. [facility] TOTAL PROTEIN 2021-10-18 09:25:00 Tod Glass V. [facility] FRACTIONATED BILIRUBIN 2021-10-18 09:25:00 Tod Glass V. [facility] OSCILL[facility] PEP 2021-10-18 07:00:10 Tod Glass V. [facility] OSCILLATORY PEP 2021-10-18 01:00:07 Tod Glass V. [facility] OSCILLATORY PEP 2021-10-17 19:01:02 Tod Glass V. [facility] VANCOMYCIN LEVEL TROUGH 2021-10-17 16:50:00 Tod Glass V. [facility] OSCILLATORY PEP 2021-10-17 14:31:30 Tod Glass V. [facility] FUNGITELL, SERUM 2021-10-17 08:59:00 Tod Glass V. [facility] COMPLETE BLOOD COUNT W/ 2021-10-17 08:59:00 Tod Glass V. [facility] DIFFERENTIAL [facility] COMPREHENSIVE METABOLIC 2021-10-17 08:59:00 Tod Glass V. [facility] PANEL [facility] MAGNESIUM LEVEL 2021-10-17 08:59:00 Tod Glass V. [facility] PHOSPHORUS LEVEL 2021-10-17 08:59:00 Tod Glass V. [facility] Results CBC 2021-10-17 08:59:00 Tod Glass V. [facility] MANUAL DIFFERENTIAL 2021-10-17 08:59:00 Tod Glass V. [facility] GLUCOSE LEVEL 2021-10-17 08:59:00 Tod Glass V. [facility] BLOOD UREA NITROGEN 2021-10-17 08:59:00 Tod Glass V. [facility] ELECTROLYTE PANEL 2021-10-17 08:59:00 Tod Glass V. [facility] SERUM CREATININE 2021-10-17 08:59:00 Tod Glass V. [facility] .GLOMERULAR FILTRATION 2021-10-17 08:59:[address] [facility] CALCIUM LEVEL TOTAL 2021-10-17 08:59:00 Tod Glass V. [facility] ALBUMIN LEVEL 2021-10-17 08:59:00 Tod Glass V. [facility] ALKALINE PHOSPHATASE 2021-10-17 08:59:00 Tod Glass V. [facility] ALANINE AMINOTRANSFERASE 2021-10-17 08:59:00 Tod Glass V. [facility] ASPARTATE AMINOTRANSFERASE 2021-10-17 08:59:00 Tod Glass [facility] TOTAL PROTEIN 2021-10-17 08:59:00 Tod Glass V. [facility] FRACTIONATED BILIRUBIN 2021-10-17 08:59:00 Tod Glass [facility] PROCALCITONIN 2021-10-17 08:59:00 Tod Glass V. [facility] FL MODIFIED BARIUM SWALLOW 2021-10-16 19:57:25 [facility] W SPEECH [facility] RESPIRATORY VIRAL PANEL, 2021-10-16 13:05:00 Tod Glass V. 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 [facility] RESPIRATORY PCR PANEL PATH 2021-10-16 13:05:00 Tod Glass [facility]. [facility] REVIEW [facility] MRSA SCREENING CULTURE 2021-10-15 21:25:00 Felix [facility] TROPONIN T 2021-10-15 18:15:00 Bijan Verónica [place] [facility] CT CHEST PULMONARY 2021-10-15 17:58:06 Bijan Verónica [facility] EMBOLISM W CONTRAST [facility] LEGIONELLA URINE ANTIGEN 2021-10-15 17:17:00 Verónica Thakkar [facility] STREPTOCOCCUS PNEUMONIAE 2021-10-15 17:17:00 Verónica Thakkar [facility] URINE ANTIGEN [facility] STREPTOCOCCAL URINE 2021-10-15 17:17:00 Bijan Vernóica [facility] ANTIGEN PATH REVIEW [facility] LEGIONELLA URINE ANTIGEN 2021-10-15 17:17:00 Bijan Verónica [facility] REVIEW [facility] FUNGITELL, SERUM 2021-10-15 16:43:00 Bijan [facility] COVID-19 (SARS-COV-2) 2021-10-15 15:08:00 Verónica Thakkar [facility] ASYMPTOMATIC-LT [facility] BLOODCULTURE 2021-10-15 15:08:00 Bijan Verónica [facility] LOWER RESPIRATORY CULTURE 2021-10-15 15:08:00 Verónica [facility] W/ GRAM STAIN [facility] COMPREHENSIVE METABOLIC 2021-10-15 15:08:00 Bijan Verónica [facility] PANEL [facility] MAGNESIUM LEVEL 2021-10-15 15:08:00 Bijan Verónica [facility] PHOSPHORUS LEVEL 2021-10-15 15:08:00 Bijan Verónica [facility] LACTATE DEHYDROGENASE 2021-10-15 15:08:00 Verónica Thakkar [facility] PROCALCITONIN 2021-10-15 15:08:00 Bijan [facility] TROPONIN T 2021-10-15 15:08:00 Bijan [facility] CREATINE KINASE 2021-10-15 15:08:00 Bijan [facility] CKMB 2021-10-15 15:08:00 Bijan [facility] NT PRO BNP 2021-10-15 15:08:00 Bijan [facility] COMPLETE BLOOD COUNT W/ 2021-10-15 15:08:00 Bijan Verónica [facility] DIFFERENTIAL [facility] PROTHROMBIN TIME 2021-10-15 15:08:00 Bijan [facility] APTT 2021-10-15 15:08:00 Bijan [facility] GLUCOSE LEVEL 2021-10-15 15:08:00 Bijan [facility] BLOOD UREA NITROGEN 2021-10-15 15:08:00 Bijan [facility] ELECTROLYTE PANEL 2021-10-15 15:08:00 Bijan [facility] SERUM CREATININE 2021-10-15 15:08:00 Bijan [facility] .GLOMERULAR FILTRATION 2021-10-15 15:08:00 Verónica Thakkar [facility] RATE [facility] CALCIUM LEVEL TOTAL 2021-10-15 15:08:00 Bijan [facility] ALBUMIN LEVEL 2021-10-15 15:08:00 Bijan [facility] [place] ALKALINE PHOSPHATASE 2021-10-15 15:08:00 Bijan [facility] ALANINE AMINOTRANSFERASE 2021-10-15 15:08:00 Verónica [facility]akkar [facility] ASPARTATE AMINOTRANSFERASE 2021-10-15 15:08:00 Verónica Thakkar [facility] TOTAL PROTEIN 2021-10-15 15:08:00 Bijan [facility] FRACTIONATED BILIRUBIN 2021-10-15 15:08:00 Verónica Thakkar [facility] Results CBC 2021-10-15 15:08:00 Bijan [facility] MANUAL DIFFERENTIAL 2021-10-15 15:08:00 Bijan [facility] XR CHEST 1 VW 2021-10-15 14:45:00 Bijan [facility] [place] EKG, 12-LEAD (PORTABLE) 2021-10-15 00:00:00 Bijan [facility] COMPLETE BLOOD COUNT W/ 2021-09-05 11:48:00 Inez Lagunas [facility] DIFFERENTIAL [facility] COMPREHENSIVE METABOLIC 2021-09-05 11:48:00 Bebo [facility] PANEL [facility] MAGNESIUM LEVEL 2021-09-05 11:48:00 Bebo [facility] PHOSPHORUS LEVEL 2021-09-05 11:48:00 Bebo [facility] Center Results CBC 2021-09-05 11:48:00 Bebo [facility] MANUAL DIFFERENTIAL 2021-09-05 11:48:00 Bebo [facility] Center GLUCOSE LEVEL 2021-09-05 11:48:00 Bebo [facility] BLOOD UREA NITROGEN 2021-09-05 11:48:00 Bebo [facility] Center ELECTROLYTE PANEL 2021-09-05 11:48:00 Bebo [facility] Center SERUM CREATININE 2021-09-05 11:48:00 Bebo [facility] .GLOMERULAR FILTRATION 2021-09-05 11:48:00 Inez Lagunas [facility] [place] RATE [facility] CALCIUM LEVEL TOTAL 2021-09-05 11:48:00 Bebo [facility] Universi ty of [facility] ALBUMIN LEVEL 2021-09-05 11:48:00 Bebo [facility] University o f [facility] ALKALINE PHOSPHATASE 2021-09-05 11:48:00 Bebo [facility] Univers ity of [facility] ALANINE AMINOTRANSFERASE 2021-09-05 11:48:00 Bebo Mini Uni versity of [facility] ASPARTATE AMINOTRANSFERASE 2021-09-05 11:48:00 [facility]ez [facility] TOTAL PROTEIN 2021-09-05 11:48:00 Inez Lagunas [place] [facility] FRACTIONATED BILIRUBIN 2021-09-05 11:48:00 Inez Lagunas Unive rsity of [facility] STREPTOCOCCUS PNEUMONIAE 2021-09-04 19:38:00 Bebo Mini [facility] [place] URINE ANTIGEN [facility] LEGIONELLA URINE ANTIGEN 2021-09-04 19:38:00 Bebo [facility] Uni versity of [facility] LEGIONELLA URINE ANTIGEN 2021-09-04 19:38:00 Bebo [facility] [place] PATH REVIEW [facility] STREPTOCOCCAL URINE 2021-09-04 19:38:00 [facility] ANTIGEN PATH REVIEW [facility] [place] LOWER RESPIRATORY CULTURE 2021-09-04 19:36:00 Inez Lagunas [facility] [place] W/ GRAM STAIN [facility] BASIC METABOLIC PANEL, 2021-09-04 09:51:00 Verónica Thakkar [facility] CALCIUM TOTAL [facility] MAGNESIUM LEVEL 2021-09-04 09:51:00 Bijan [facility] [place] PHOSPHORUS LEVEL 2021-09-04 09:51:00 Bijan [facility] TROPONIN T 2021-09-04 09:51:00 Mehrdad Rod [place] [facility] GLUCOSE LEVEL 2021-09-04 09:51:00 Bijan [facility] BLOOD UREA NITROGEN 2021-09-04 09:51:00 Bijan [facility] ELECTROLYTE PANEL 2021-09-04 09:51:00 Bijan [facility] SERUM CREATININE 2021-09-04 09:51:00 Bijan [facility] .GLOMERULAR FILTRATION 2021-09-04 09:51:00 Bijan Verónica [facility] RATE [facility] CALCIUM LEVEL TOTAL 2021-09-04 09:51:00 Bijan [facility] TROPONIN T 2021-09-04 03:49:00 Bijan [facility] CREATINE KINASE 2021-09-04 03:49:00 Bijan [facility] CKMB 2021-09-04 03:49:00 Bijan [facility] CT CHEST PULMONARY 2021-09-04 03:46:45 Bijan Verónica [facility] XR CHEST 1 VW 2021-09-03 23:40:27 Jyoti Morales [facility] RESPIRATORY VIRAL 2021-09-03 23:14:00 Jyoti Morales [facility] MULTIPLEX PCR PANEL, [facility] Cancer NASOPHARYNGEAL SWAB Center COMPLETE BLOOD COUNT W/ 2021-09-03 21:54:00 Jyoti Morales [facility] DIFFERENTIAL [facility] COMPREHENSIVE METABOLIC 2021-09-03 21:54:00 Jyoti Morales [facility] PANEL [facility] MAGNESIUM LEVEL 2021-09-03 21:54:00 Jyoti Morales [facility] PHOSPHORUS LEVEL 2021-09-03 21:54:00 Jyoti Morales [facility] NT PRO BNP 2021-09-03 21:54:00 Jyoti Morales [facility] TROPONIN T 2021-09-03 21:54:00 Jyoti Morales [facility] Results CBC 2021-09-03 21:54:00 Jyoti Morales [facility] MANUAL DIFFERENTIAL 2021-09-03 21:54:00 Jyoti Morales [facility] GLUCOSE LEVEL 2021-09-03 21:54:00 Jyoti Morales [facility] BLOOD UREA NITROGEN 2021-09-03 21:54:00 Jyoti Morales [facility] ELECTROLYTE PANEL 2021-09-03 21:54:00 Jyoti Morales [facility] SERUM CREATININE 2021-09-03 21:54:00 Jyoti Morales [facility] .GLOMERULAR FILTRATION 2021-09-03 21:54:[address] [facility] CALCIUM LEVEL TOTAL 2021-09-03 21:54:00 Jyoti Morales [facility] ALBUMIN LEVEL 2021-09-03 21:54:00 Jyoti Morales [facility] ALKALINE PHOSPHATASE 2021-09-03 21:54:00 Jyoti Morales [facility] ALANINE AMINOTRANSFERASE 2021-09-03 21:54:00 Jyoti [facility] ASPARTATE AMINOTRANSFERASE 2021-09-03 21:54:00 [facility] TOTAL PROTEIN 2021-09-03 21:54:00 Jyoti Morales [facility] FRACTIONATED BILIRUBIN 2021-09-03 21:54:00 Jyoti Morales [facility] EKG, 12-LEAD (PORTABLE) 2021-09-03 00:00:00 Jyoti Morales [facility] CT CHEST W CONTRAST 2021-08-13 14:15:24 Nicole Del Rosario [facility] POC CREATININE 2021-08-13 13:30:00 [facility] REPLACEMENT OF GASTROSTOMY 2021-05-22 04:50:00 Claude Tobin [facility] TUBE, KATJA, MD Isaac Cancer INCLUDES REMOVAL, WHEN Center PERFORMED, WITHOUT IMAGING OR ENDOSCOPIC GUIDANCE; NOT REQUIRING REVISION OF GASTROSTOMY TRACT CT CHEST ABDOMEN PELVIS W 2021-04-20 19:35:00 Jackie Mendez [facility] CONTRAST [facility] POC CREATININE 2021-04-20 18:02:00 [facility] CONTRAST 2021-04-20 16:10:00 Jackie Mendez [facility] Plan of Care Planned Activity Planned Date Details Comments Source Future Scheduled 2023-04-07 COVID-19 Vaccination [facility] [place] Test 13:18:02 (#1) [code = COVID-19 MD [facility] Vaccination (#1)] Center Future Scheduled 2022-12-24 COVID-19 Vaccination Uni versity [...] Department ID 2022-10-08 Outpatient SYSTEM, ANUJ LESLIE [id number] 12:38:41 PROVIDER Bakari zimmerman 2021-04-30 Emergency [facility] [id number] Univers 04:07:38 ity of [facility] 2020-04-12 Outpatient ANUJ LESLIE [id number] 16:09:07 Fuentes zimmerman 2020-02-14 Outpatient SYSTEMANUJ MDA [id number] 13:23:33 PROVIDER Bakari zimmerman 2023-03-31 2023-03-31 Telemedici Amber, 1.2.840.1 [id number] [facility] [place] 14:00:00 14:26:47 elias Douglas 44632.1.1 it y 3.412.2.7 [place] .3.327457 .8 [facility] 2023-03-31 2023-03-31 Outpatient NICHOLE LIMA MDA MDA [id number] 11:10:37 14:26:47 STELLA Morrison rso erasmo 2023-03-28 2023-03-28 Orders Fossrachael, 1.2.840.1 [id number] Univers 00:00:00 00:00:00 Only Maria Fernanda Fu 55780.1.1 ity of 3.412.2.7 [place] .3.054069 MD Haines8 [facility] 2023-03-26 2023-03-26 Telephone Curtis, 1.2.840.1 [id number] Univers 00:00:00 00:00:00 Lisa Ann 30357.1.1 ity of 3.412.2.7 [place] .3.838058 .8 [facility] 2023-03-17 2023-03-17 Outpatient NICHOLE LIMA [facility] [id number] 10:11:25 15:48:01 STELLA Morrison [facility] 2023-03-17 2023-03-17 Telemcolin Lima, 1.2.840.1 [id number] Univers 10:00:00 15:48:01 ne Stella 34256.1.1 it y of 3.412.2.7 [place] .3.836251 .8 [facility] 2023-03-16 2023-03-16 Raul Lima 1.2.840.1 [id number] Univers 00:00:00 00:00:00 Only Stella 36657.1.1 it y of 3.412.2.7 [place] .3.299409 MD Haines8 [facility] 2023-03-10 2023-03-10 Raul Lima 1.2.840.1 [id number] Univers 00:00:00 00:00:00 Only Stella 14527.1.1 it y of 3.412.2.7 [place] .3.969620 MD Haines8 [facility] 2023-03-06 2023-03-06 Raul Lima 1.2.840.1 [id number] Univers 00:00:00 00:00:00 Only Stella 36547.1.1 it y of 3.412.2.7 [place] .3.768999 MD Haines8 [facility] 2023-03-06 2023-03-06 Nurse Casey, 1.2.840.1 [id number] Univers 00:00:00 00:00:00 Triage Aletha Trevino 37820.1.1 it y of 3.412.2.7 [place] .3.768121 MD Haines8 [facility] 2023-01-22 2023-01-22 [facility], 1.2.840.1 [id number] [facility] [place] 09:13:38 23:59:00 Encounter Grey Trevino 29919.1.1 ity of 3.412.2.7 [place] .3.294850 MD Beasley [facility] 2023-01-22 2023-01-22 Outpatient NICHOLE LUCIANO MDA MDA [id number] 09:13:38 23:59:00 GREY zimmerman 2023-01-22 2023-01-22 Follow-Up Luis Angel 1.2.840.1 [id number] [facility] [place] 16:00:00 16:00:00 Maria Fernanda Fu 05038.1.1 ity of 3.412.2.7 [place] .3.771032 MD Beasley [facility] 2023-01-22 2023-01-22 Outpatient NICHOLE WASHINGTON MDA MDA [id number] 14:14:03 15:16:41 MARIA FERNANDA zimmerman 2023-01-22 2023-01-22 [facility], 1.2.840.1 [id number] [facility] [place] 08:25:45 09:12:00 Encounter Grey Trevino 95207.1.1 ity of 3.412.2.7 [place] .3.521055 MD [facility]-01-22 2023-01-22 Outpatient NICHOLE LUCIANO MDA MDA [id number] 08:25:45 09:12:00 GREY zimmerman 2023-01-22 2023-01-22 Travel 1.2.840.1 1.2.149.920 [id number] Univers 00:00:00 00:00:00 21973.1.1 350.1.13.41 ity of 3.412.2.[place].698 [place] .3.824488 084.8 MD Beasley [facility] 2023-01-08 2023-01-08 Telephone Edmund, 1.2.840.1 [id number] Univers 00:00:00 00:00:00 Daisy N 59172.1.1 it y of 3.412.2.7 [place] .3.942040 MD Haines8 [facility] 2022-12-25 2022-12-25 Telephone Gonzalez, 1.2.840.1 [id number] Univers 00:00:00 00:00:00 Gurpreet Ramírez 46617.1.1 it y of 3.412.2.7 [place] .3.988511 MD Haines8 [facility] 2022-12-24 2022-12-24 Telephone Curtis, 1.2.840.1 [id number] Univers 00:00:00 00:00:00 Lisa Ann 77059.1.1 ity of 3.412.2.7 [place] .3.150877 MD Haines8 [facility] 2022-12-24 2022-12-24 Telephone Curtis, 1.2.840.1 [id number] Univers 00:00:00 00:00:00 Lisa Ann 17017.1.1 ity of 3.412.2.7 [place] .3.567748 MD Beasley [facility] [place] 2022-12-20 2022-12-20 Telephone Zulema Cedillo 1.2.840.1 [id number] Univers 00:00:00 00:00:00 A 48088.1.1 ity of 3.412.2.7 [place] .3.311679 MD Beasley [facility] 2022-12-20 2022-12-20 Telephone Zulema Cedillo 1.2.840.1 [id number] Univers 00:00:00 00:00:00 A 15091.1.1 ity of 3.412.2.7 [place] .3.622101 MD Haines8 [facility] 2022-12-14 2022-12-14 Documentat Fossella, 1.2.840.1 [id number] Univers 00:00:00 00:00:00 ion Maria Fernanda V. 03004.1.1 ity of 3.412.2.7 [place] .3.760643 MD Haines8 [facility] 2022-12-14 2022-12-14 Documentat Fossella, 1.2.840.1 [id number] Univers 00:00:00 00:00:00 ion Maria Fernanda V. 27048.1.1 ity of 3.412.2.7 [place] .3.745776 MD Haines8 [facility] 2022-12-13 2022-12-13 Raul Luciano, 1.2.840.1 [id number] Univers 00:00:00 00:00:00 Only Grey C 66472.1.1 i ty of 3.412.2.7 [place] .3.060558 MD Haines8 [facility] 2022-12-13 2022-12-13 Raul Luciano 1.2.840.1 [id number] Univers 00:00:00 00:00:00 Only Grey C 64953.1.1 i ty of 3.412.2.7 [place] .3.153939 MD Haines8 [facility] 2022-11-19 2022-11-19 Orders Mt, 1.2.840.1 [id number] Univers 00:00:00 00:00:00 Only Alex 95274.1.1 ity of 3.412.2.7 [place] .3.270808 MD Haines8 [facility] 2022-11-19 2022-11-19 Orders Mt, 1.2.840.1 [id number] Univers 00:00:00 00:00:00 Only Alex 16730.1.1 ity of 3.412.2.7 [place] .3.195762 MD Beasley [facility] 2022-09-13 2022-09-13 [facility], 1.2.840.1 [id number] Univers 07:30:00 23:59:00 Encounter Maria Fernanda V. 55232.1.1 i ty of 3.412.2.7 [place] .3.732749 MD Haines8 [facility] 2022-09-13 2022-09-13 [facility], 1.2.840.1 [id number] Univers 07:30:00 23:59:00 Encounter Maria Fernanda V. 53790.1.1 i ty of 3.412.2.7 [place] .3.004852 MD Beasley [facility] 2022-09-13 2022-09-13 Follow-Up [facility], 1.2.840.1 [id number] Univers 11:30:00 13:09:21 Maria Fernanda V. 77055.1.1 ity of 3.412.2.7 [place] .3.100227 MD Beasley [facility] 2022-09-13 2022-09-13 Follow-Up [facility], 1.2.840.1 [id number] Univers 11:30:00 13:09:21 Maria Fernanda V. 31142.1.1 ity of 3.412.2.7 [place] .3Yancy649481 MD Beasley [facility] 2022-09-13 2022-09-13 Ancillary Amber, 1.2.840.1 [id number] Univers 08:35:00 10:00:00 Procedure Stella 54104.1.1 ity of 3.412.2.7 [place] .3Yancy900613 MD Beasley [facility] 2022-09-13 2022-09-13 Ancillary NICHOLE Lima, 1.2.840.1 [id number] Univers 08:35:00 10:00:00 Procedure Stella 05956.1.1 ity of 3.412.2.7 [place] .3Yancy286078 MD Beasley [facility] 2022-09-13 2022-09-13 Raul Lima, 1.2.840.1 [id number] Univers 00:00:00 00:00:00 Only Stella 36883.1.1 it y of 3.412.2.7 [place] .3.431525 MD Beasley [facility] 2022-09-13 2022-09-13 Travel 1.2.840.1 1.2.124.284 [id number] Univers 00:00:00 00:00:00 74804.1.1 350.1.13.41 ity of 3.412.2.7 [place].3.698 [place] .3.112762 084.8 MD Beasley [facility] 2022-09-13 2022-09-13 Raul Lima, 1.2.840.1 [id number] Univers 00:00:00 00:00:00 Only Stella 72777.1.1 it y of 3.412.2.7 [place] .3.763119 MD Beasley [facility] 2022-09-13 2022-09-13 Travel 1.2.840.1 1.2.030.496 [id number] Univers 00:00:00 00:00:00 13046.1.1 350.1.13.41 ity of 3.412.2.7 [place].3.698 [place] .3.173205 084.8 MD Beasley [facility] 2022-09-05 2022-09-05 Raul Lima, 1.2.840.1 [id number] Univers 00:00:00 00:00:00 Only Stella 99269.1.1 it y of 3.412.2.7 [place] .3.855738 MD Beasley [facility] 2022-09-05 2022-09-05 Raul Lima, 1.2.840.1 [id number] Univers 00:00:00 00:00:00 Only Stella 65796.1.1 it y of 3.412.2.7 [place] .3.311307 MD Beasley [facility] 2022-08-29 2022-08-29 Telephone Akhtar, 1.2.840.1 [id number] Univers 00:00:00 00:00:00 Liz G 19130.1.1 ity of 3.412.2.7 [place] .3.367894 MD Beasley [facility] 2022-08-29 2022-08-29 Telephone Akhtar, 1.2.840.1 [id number] Univers 00:00:00 00:00:00 Liz G 70666.1.1 ity of 3.412.2.7 [place] .3.101544 MD Beasley [facility] 2022-06-19 2022-06-19 Orders Fossella, 1.2.840.1 [id number] Univers 00:00:00 00:00:00 Only Maria Fernanda V. 24658.1.1 ity of 3.412.2.7 [place] .3.348021 MD Beasley [facility] 2022-06-19 2022-06-19 Orders Fossella, 1.2.840.1 [id number] Univers 00:00:00 00:00:00 Only Maria Fernanda V. 86170.1.1 ity of 3.412.2.7 [place] .3.739767 MD Beasley [facility] 2022-06-07 2022-06-07 [facility], 1.2.840.1 [id number] Univers 09:35:06 23:59:00 Encounter Stella 32501.1.1 ity of 3.412.2.7 [place] .3.089635 MD Haines8 [facility] 2022-06-07 2022-06-07 [facility], 1.2.840.1 [id number] Univers 09:35:06 23:59:00 Encounter Stella 22418.1.1 ity of 3.412.2.7 [place] .3.566435 MD Beasley [facility] 2022-06-07 2022-06-07 Follow-Up Luis Angel, 1.2.840.1 [id number] Univers 12:00:00 14:14:09 Maria Fernanda V. 20235.1.1 ity of 3.412.2.7 [place] .3.873122 .8 [facility] 2022-06-07 2022-06-07 Follow-Up NICHOLE Luis Angel, 1.2.840.1 [id number] Univers 12:00:00 14:14:09 Maria Fernanda V. 45171.1.1 ity of 3.412.2.7 [place] .3.984938 MD Haines8 [facility] 2022-06-07 2022-06-07 Ancillary Amber, 1.2.840.1 [id number] Univers 07:00:00 09:30:00 Procedure Stella 37506.1.1 ity of 3.412.2.7 [place] .3.938638 MD Haines8 [facility] 2022-06-07 2022-06-07 Ancillary NICHOLE Lima, 1.2.840.1 [id number] [employer] 07:00:00 09:30:00 Procedure Stella 28045.1.1 ity of 3.412.2.7 [place] .3.862029 MD Haines8 [facility] 2022-06-07 2022-06-07 Orders Amber, 1.2.840.1 [id number] [employer] 00:00:00 00:00:00 Only Stella 74511.1.1 it y of 3.412.2.7 [place] .3.644836 MD Haines8 [facility] 2022-06-07 2022-06-07 Orders Luis Angel, 1.2.840.1 [id number] [employer] 00:00:00 00:00:00 Only Maria Fernanda Cervantes. 60615.1.1 ity of 3.412.2.7 [place] .3.154205 MD Haines8 [facility] 2022-06-07 2022-06-07 Travel 1.2.840.1 1.2.508.918 [id number] Univers 00:00:00 00:00:00 67830.1.1 350.1.13.41 ity of 3.412.2.7 2.2.7.3.698 [place] .3.593055 084.8 MD Beasley [facility] 2022-06-07 2022-06-07 Raul Lima, 1.2.840.1 [id number] Univers 00:00:00 00:00:00 Only Stella 78090.1.1 it y of 3.412.2.7 [place] .3.965018 MD [facility] 2022-06-07 2022-06-07 Raul Washington, 1.2.840.1 [id number] Univers 00:00:00 00:00:00 Only Maria Fernanda Nickie 82433.1.1 ity of 3.412.2.7 [place] .3.259684 MD [facility] 2022-06-07 2022-06-07 Travel 1.2.840.1 1.2.526.225 9201 [id number] Univers 00:00:00 00:00:00 93784.1.1 350.1.13.41 ity of 3.412.2.7 [place].3.698 [place] .3.159965 084.8 MD [facility] 2022-05-09 2022-05-09 Telephone Fab 1.2.840.1 [id number] 1099 [id number] Univers 00:00:00 00:00:00 Mini F 61643.1.1 ity of 3.412.2.7 [place] .3.552527 MD [facility] 2022-05-09 2022-05-09 Telephone Fab 1.2.840.1 [id number] 1099 [id number] Univers 00:00:00 00:00:00 Mini F 57973.1.1 ity of 3.412.2.7 [place] .3.839454 MD [facility] 2022-05-03 2022-05-03 Raul Lima, 1.2.840.1 [id number] [id number] 2267 Univers 00:00:00 00:00:00 Only Stella 40071.1.1 it y of 3.412.2.7 [place] .3.180647 MD [facility] 2022-05-03 2022-05-03 Telephone Zulema Cedillo 1.2.840.1 [id number] 1 [id number] Univers 00:00:00 00:00:00 A 89509.1.1 ity of 3.412.2.7 [place] .3.092066 MD [facility] 2022-05-03 2022-05-03 Raul Lima, 1.2.840.1 [id number] 2721 Univers 00:00:00 00:00:00 Only Stella 62213.1.1 it y of 3.412.2.7 [place] .3.023471 MD [facility] 2022-05-03 2022-05-03 Telephone Zulema Cedillo 1.2.840.1 [id number] 1 [id number] Univers 00:00:00 00:00:00 A 46430.1.1 ity of 3.412.2.7 [place] .3.001179 MD [facility] 2021-12-28 2021-12-28 Nurse Lazaro, 1.2.840.1 [id number] 1094 [id number] Univers 00:00:00 00:00:00 Triage Constantine 23934.1.1 ity of 3.412.2.7 [place] .3.382927 MD [facility] 2021-12-28 2021-12-28 Documentat Luis Angel, 1.2.840.1 [id number] 1 [id number] Univers 00:00:00 00:00:00 ion Maria Fernanda Fu 56098.1.1 ity of 3.412.2.7 [place] .3.038672 MD [facility] 2021-12-20 2021-12-20 Telephone Ger, 1.2.840.1 [id number] 1 [id number] Univers 00:00:00 00:00:00 Lolita 82353.1.1 ity of Loydaelda 3.412.2.7 [place] .3.686369 MD [facility] 2021-12-11 2021-12-11 Telephone Nuvia, 1.2.840.1 [id number] 1093 [id number] Univers 00:00:00 00:00:00 Bibiana Trevino 90849.1.1 ity of 3.412.2.7 [place] .3.671446 MD [facility] 2021-12-05 2021-12-05 Telephone Mehta, 1.2.840.1 [id number] 1093 [id number] Univers 00:00:00 00:00:00 Kasie Lehman 84124.1.1 i ty of 3.412.2.7 [place] .3.320210 MD [facility] 2021-12-01 2021-12-01 Nurse Marshall, 1.2.840.1 [id number] 4131 Univers 00:00:00 00:00:00 Triage Erin Fallon 53715.1.1 i ty of 3.412.2.7 [place] .3.440542 MD [facility] 2021-11-13 2021-11-13 Raul Lima, 1.2.840.1 [id number] 0276 Univers 00:00:00 00:00:00 Only Stella 73657.1.1 it y of 3.412.2.7 [place] .3.811854 MD [facility] 2021-11-13 2021-11-13 Telephone Edmund, 1.2.840.1 [id number] 1092 [id number] Univers 00:00:00 00:00:00 Daisy Zimmerman 50489.1.1 it y of 3.412.2.7 [place] .3.015851 MD [facility] 2021-11-02 2021-11-02 Fito Huber 1.2.840.1 [id number] 1092 [id number] Univers 00:00:00 00:00:00 Only Herrera 22986.1.1 ity of 3.412.2.7 [place] .3.741797 .8 [facility] 2021-11-02 2021-11-02 Nurse Karishma Chu 1.2.840.1 [id number] 10 [id number] Univers 00:00:00 00:00:00 Triage Abby 96350.1.1 ity of 3.412.2.7 [place] .3.823205 .8 [facility] 2021-10-15 2021-10-24 [facility] Verónica Diaz 1.2.840.1 [id number] Univers 09:35:00 17:00:00 Encounter Thelma Bowser 27452.1.1 ity of [place], Ed 3.412.2.7 Gio as Tod Glass V. .3.643717 Boni Dominguez .8 [facility] 2021-10-24 2021-10-24 Nurse Jackson 1.2.840.1 [id number] Univers 00:00:00 00:00:00 Triage Arcadio 27579.1.1 ity of 3.412.2.7 [place] .3.171528 .8 [facility] 2021-10-23 2021-10-23 Inpatient NICHOLE OBRIEN MDA [facility] [id number] 20:59:49 21:16:07 BONI smith 2021-10-19 2021-10-19 Surgery Aisha 1.2.840.1 [id number] 4766 Univers 15:10:00 15:50:00 Edwige 60972.1.1 ity of Ali 3.412.2.7 [place] .3.765754 .8 [facility] 2021-10-19 2021-10-19 Anesthesia Jenise Degroot 1.2.840.1 [id number] Univers 13:24:00 13:49:00 Event Dhiraj Fry 86087.1.1 ity of 3.412.2.7 [place] .3.402702 .8 [facility] 2021-10-18 2021-10-18 Prep for OCallie, 1.2.840.1 [id number] Univers 00:00:00 00:00:00 Surgery Shena 88527.1.1 [place] .3.913[place] MD [facility] 2021-10-17 2021-10-17 Inpatient NICHOLE GLASS SON MDA MDA [id number] 11:46:00 11:46:[address] [facility] 2021-10-16 2021-10-16 Inpatient NICHOLE W[place], [facility] MDA [id number] 14:52:17 14:52:20 MAR[address] [facility] 2021-10-16 2021-10-16 [facility] MDA [id number] 10:37:11 10:37:14 MAR[address] [facility] 2021-10-16 2021-10-16 [facility] MDA [id number] 10:05:03 10:05:06 [address] [facility] 2021-10-15 2021-10-15 Inpatient [facility], ED MDA MDA [id number] 23:20:17 23:40:[address] [facility] 2021-10-15 2021-10-15 Travel 1.2.840.1 1.2.509.269 3154 [id number] Univers 00:00:00 00:00:00 74218.1.1 350.1.13.41 ity of 3.412.2.7 [place].3.698 [place]3.40[place] 084.8 MD [facility] 2021-10-11 2021-10-11 Orders Amber, 1.2.840.1 [id number] 3111 Univers 00:00:00 00:00:00 Only Stella 95706.1.1 it y of 3.412.2.7 [place] .3.318960 MD [facility] 2021-10-10 2021-10-10 Orders Shantal 1.2.840.1 [id number] 7440 Univers 00:00:00 00:00:00 Only Kaylyn, 85412.1.1 ity of Deshawn 3.412.2.7 [place] .3.225328 MD [facility] 2021-10-10 2021-10-10 Nurse Dean, 1.2.840.1 [id number] 7758 Univers 00:00:00 00:00:00 Triage Stella Stewart 88521.1.1 ity of 3.412.2.7 [place] .3.332690 MD [facility] 2021-10-10 2021-10-10 Telephone Price, 1.2.840.1 [id number] 1091 [id number] Univers 00:00:00 00:00:00 Ileana Ann 70259.1.1 i ty of 3.412.2.7 [place] .3.281270 MD [facility] 2021-09-03 2021-09-07 [facility] Verónica Thakkar 1.2.840.1 [id number] Univers 16:59:00 15:45:00 Encounter Mehrdad Rod 35076.1.1 ity of Gurpreet Estes 3.412.2.7 [place] .3.097650 MD [facility] 2021-09-07 2021-09-07 Travel 1.2.840.1 1.2.550.815 5950 [id number] Univers 00:00:00 00:00:00 55488.1.1 350.1.13.41 ity of 3.412.2.7 2[place]7.3.698 [place] .3.5615[place] 084.8 MD [facility] 2021-09-05 2021-09-05 Inpatient NICHOLE HART MDA MDA [id number] 11:14:45 11:38:29 SOFI zimmerman 2021-09-03 2021-09-03 Travel 1.2.840.1 1.2.647.546 9058 [id number] Univers 00:00:00 00:00:00 67897.1.1 350.1.13.41 ity of 3.412.2.7 2.2.7.3.698 [place] .3.946677 084.8 MD [facility] 2021-09-03 2021-09-03 Telephone John, 1.2.840.1 [id number] 1090 [id number] Univers 00:00:00 00:00:00 Michael Lehman 55630.1.1 ity of 3.412.2.7 [place] .3.299167 MD [facility] 2021-08-22 2021-08-22 Telephone Amber, 1.2.840.1 [id number] 1089 [id number] Univers 00:00:00 00:00:00 Stella 34640.1.1 it y of 3.412.2.7 [place] .3.817380 MD [facility] 2021-08-22 2021-08-22 Raul Lima, 1.2.840.1 [id number] 4128 Univers 00:00:00 00:00:00 Only Stella 02930.1.1 it y of 3.412.2.7 [place] .3.967837 MD [facility] 2021-08-20 2021-08-20 Raul Sanon 1.2.840.1 [id number] 0500 Univers 00:00:00 00:00:00 Only Lela Ramírez 76648.1.1 ity of 3.412.2.7 [place] .3.771964 MD [facility] 2021-08-18 2021-08-18 Raul Lima 1.2.840.1 [id number] 5888 Univers 00:00:00 00:00:00 Only Stella 21664.1.1 it y of 3.412.2.7 [place] .3.167798 MD [facility] 2021-08-18 2021-08-18 Raul Washington 1.2.840.1 [id number] 1089 [id number] Univers 00:00:00 00:00:00 Only Maria Fernanda Fu 07462.1.1 ity of 3.412.2.7 [place] .3.383785 MD [facility] 2021-08-17 2021-08-17 Telephone Zulema Cedillo 1.2.840.1 [id number] 1 [id number] Univers 00:00:00 00:00:00 A 02331.1.1 ity of 3.412.2.7 [place] .3.172459 MD [facility] 2021-08-14 2021-08-14 Office NICHOLE Tadeo, 1.2.840.1 [id number] Univers 12:15:00 13:20:09 Visit Herrera 11191.1.1 ity of 3.412.2.7 [place] .3.917346 MD [facility] 2021-08-14 2021-08-14 Office NICHOLE [place], 1.2.840.1 [id number] 1089 [id number] Univers 08:30:00 10:28:29 Visit Maria Fernanda Fu 04813.1.1 ity of 3.412.2.7 [place] .3.745151 MD [facility] 2021-08-14 2021-08-14 Orders Solo, 1.2.840.1 [id number] [id number] Univers 00:00:00 00:00:00 Only Jacki 90517.1.1 ity of 3.412.2.7 [place] .3.986360 MD [facility] 2021-08-14 2021-08-14 Orders Gucci, 1.2.840.1 [id number] [id number] Univers 00:00:00 00:00:00 Only Sarah Ybarra 42933.1.1 ity of 3.412.2.7 [place] .3.152271 MD [facility] 2021-08-14 2021-08-14 Travel 1.2.840.1 1.2.899.683 1943 [id number] Univers 00:00:00 00:00:00 13908.1.1 350.1.13.41 ity of 3.412.2.7 2.[place]7.3.698 [place] .3.700620 084.8 MD [facility] [place] 2021-08-13 2021-08-13 [facility] Raymundo Rivera 1.2.840.1 [id number] 10 [id number] Univers 09:45:00 23:59:00 Encounter 88690.1.1 it y of 3.412.2.7 [place] .3.001207 MD [facility] 2021-08-13 2021-08-13 [facility] NICHOLE Del Rosario, 1.2.840.1 [id number] 10090 [id number] Univers 06:35:00 09:44:00 Encounter Nicole 69999.1.1 it y of Chunyi 3.412.2.7 [place] .3.854862 MD [facility] 2021-08-13 2021-08-13 [facility], 1.2.840.1 [id number] 4192 Univers 00:00:00 00:00:00 Only Nicole 18065.1.1 ity of [place] 3.412.2.7 [place] .3.289677 MD [facility] 2021-08-13 2021-08-13 Travel 1.2.840.1 1.2.722.810 2161 [id number] Univers 00:00:00 00:00:00 75657.1.1 350.1.13.41 ity of 3.412.2.7 2.[place].7.3.698 [place] .3.465997 084.8 MD [facility] 2021-08-11 2021-08-11 Angel [place], 1.2.840.1 [id number] 1089 [id number] Univers 00:00:00 00:00:00 Maria Fernanda Nickie 24081.1.1 ity of 3.412.2.7 [place] .3.061395 MD [facility] 2021-08-07 2021-08-07 Raul Fenton, 1.2.840.1 [id number] 9833 Univers 00:00:00 00:00:00 Only Abdirizak 30694.1.1 ity of 3.412.2.7 [place] .3.811187 MD [facility] [place] 2021-07-27 2021-07-27 Telephone Jarrett, 1.2.840.1 [id number] 1 [id number] Univers 00:00:00 00:00:00 Génesis Ann 63250.1.1 ity of 3.412.2.7 [place] .3.703131 MD [facility] 2021-07-27 2021-07-27 Angel Lima, 1.2.840.1 [id number] 8850 Univers 00:00:00 00:00:00 Stella 55407.1.1 it y of 3.412.2.7 [place] .3.333654 MD [facility] 2021-07-26 2021-07-26 Telephone Anais, 1.2.840.1 [id number] 1 [id number] Univers 00:00:00 00:00:00 Génesis Trevino 23957.1.1 ity of 3.412.2.7 [place] .3.064409 MD [facility] [place] 2021-07-26 2021-07-26 Orders Andrea, 1.2.840.1 [id number] Univers 00:00:00 00:00:00 Only Jackie 38847.1.1 ity of 3.412.2.7 [place] .3.508123 MD [facility] [place] 2021-07-26 2021-07-26 Angel Lima, 1.2.840.1 [id number] 1290 Univers 00:00:00 00:00:00 Stella 55132.1.1 it y of 3.412.2.7 [place] .3.512323 MD [facility] [place] 2021-07-19 2021-07-19 Telephone Edmund, 1.2.840.1 [id number] 1088 [id number] Univers 00:00:00 00:00:00 Daisy Zimmerman 85238.1.1 it y of 3.412.2.7 [place] .3.228677 MD [facility] 2021-07-12 2021-07-12 Telephone Amber, 1.2.840.1 [id number] 1088 [id number] Univers 00:00:00 00:00:00 Stella 07298.1.1 it y of 3.412.2.7 [place] .3.480805 MD [facility] 2021-07-11 2021-07-11 Raul Lima, 1.2.840.1 [id number] 6657 Univers 00:00:00 00:00:00 Only Stella 86962.1.1 it y of 3.412.2.7 [place] .3Yancy511333 MD [facility] 2021-07-11 2021-07-11 Telephone Price, 1.2.840.1 [id number] 1088 [id number] Univers 00:00:00 00:00:00 Ileana Ann 58871.1.1 i ty of 3.412.2.7 [place] .3.225088 MD [facility] 2021-07-02 2021-07-02 Raul Lima, 1.2.840.1 [id number] 8788 Univers 00:00:00 00:00:00 Only Stella 09729.1.1 it y of 3.412.2.7 [place] .3.602392 MD [facility] 2021-06-27 2021-06-27 Raul Lima 1.2.840.1 [id number] 5755 Univers 00:00:00 00:00:00 Only Stella 94364.1.1 it y of 3.412.2.7 [place] .3.039641 MD [facility] 2021-06-25 2021-06-25 Raul Lima 1.2.840.1 [id number] 8141 Univers 00:00:00 00:00:00 Only Stella 06397.1.1 it y of 3.412.2.7 [place] .3.213273 MD [facility] 2021-06-14 2021-06-14 Telephone Ger, 1.2.840.1 [id number] 1 [id number] Univers 00:00:00 00:00:00 Lolita 24161.1.1 ity of Ethelda 3.412.2.7 [place] .3.348346 MD [facility] 2021-06-11 2021-06-11 Orders Amber, 1.2.840.1 [id number] Univers 00:00:00 00:00:00 Only Stella 29500.1.1 it y of 3.412.2.7 [place] .3.522961 MD [facility] 2021-06-09 2021-06-09 Angel Rivas, 1.2.840.1 [id number] 84461 [id number] Univers 00:00:00 00:00:00 Yudith Lehmna 92980.1.1 ity of 3.412.2.7 [place] .3.459326 MD [facility] 2021-06-06 2021-06-06 Telephone Anais, 1.2.840.1 [id number] 1 [id number] Univers 00:00:00 00:00:00 Génesis Trevino 61398.1.1 ity of 3.412.2.7 [place] .3.389247 MD [facility] 2021-05-21 2021-05-[address] [facility], 1.2.840.1 [id number] 5897 Univers 14:50:00 15:20:00 Claude 62390.1.1 ity of 3.412.2.7 [place] .3.452144 MD [facility] 2021-05-21 2021-05-21 Hospital [facility], 1.2.840.1 [id number] 91287 [id number] Univers 12:54:00 13:30:00 Encounter Claude 01174.1.1 it y of 3.412.2.7 [place] .3.387328 MD [facility] 2021-05-21 2021-05-21 Travel 1.2.840.1 1.2.571.964 7368 [id number] Univers 00:00:00 00:00:00 17367.1.1 350.1.13.41 ity of 3.412.2.7 2.[place].7.3.698 [place] .3.138147 084.8 MD [facility] 2021-05-17 2021-05-17 Prep for Yannick, 1.2.840.1 [id number] [id number] Univers 00:00:00 00:00:00 Surgery Elmira Erasmo 64422.1.1 it y of 3.412.2.7 [place] .3.145538 MD [facility] 2021-05-17 2021-05-17 Raul Lima, 1.2.840.1 [id number] 1314 Univers 00:00:00 00:00:00 Only Stella 45460.1.1 it y of 3.412.2.7 [place] .3.952529 MD [facility] 2021-05-16 2021-05-16 Raul Lima 1.2.840.1 [id number] 8137 Univers 00:00:00 00:00:00 Only Stella 31505.1.1 it y of 3.412.2.7 [place] .3.770350 MD [facility] 2021-05-16 2021-05-16 Telephone Ger, 1.2.840.1 [id number] 1 [id number] Univers 00:00:00 00:00:00 Lolita 89942.1.1 ity of Ethelda 3.412.2.7 [place] .3.867783 MD [facility] 2021-05-16 2021-05-16 Telephone Ger, 1.2.840.1 [id number] 1 [id number] Univers 00:00:00 00:00:00 Lolita 05195.1.1 ity of Ethelda 3.412.2.7 [place] .3.835001 MD [facility] 2021-05-14 2021-05-14 Raul Javed 1.2.840.1 [id number] 5798 Univers 00:00:00 00:00:00 Only Giovanna Tanner 01344.1.1 i ty of 3.412.2.7 [place] .3.693858 MD [facility] 2021-04-27 2021-04-27 Raul Lima, 1.2.840.1 [id number] 3306 Univers 00:00:00 00:00:00 Only Stella 71291.1.1 it y of 3.412.2.7 [place] .3Yancy518982 MD [facility] 2021-04-25 2021-04-25 Raul Lima 1.2.840.1 [id number] 2731 Univers 00:00:00 00:00:00 Only Stella 92633.1.1 it y of 3.412.2.7 [place] .3.997006 MD [facility] 2021-04-23 2021-04-23 [facility] 1.2.840.1 [id number] 10 [id number] Univers 09:38:02 23:59:00 Encounter 88364.1.1 it y of 3.412.2.7 [place] .3.447098 MD [facility] 2021-04-23 2021-04-23 Raul Del Rosario 1.2.840.1 [id number] 1812 Univers 00:00:00 00:00:00 Only Nicloe 41298.1.1 ity of [place] 3.412.2.7 [place] .3.167858 MD [facility] 2021-04-23 2021-04-23 Raul Del Rosario 1.2.840.1 [id number] 4793 Univers 00:00:00 00:00:00 Only Nicole 98777.1.1 ity of [place] 3.412.2.7 [place] .3.011854 MD [facility] 2021-04-23 2021-04-23 Raul Del Rosario 1.2.840.1 [id number] 3472 Univers 00:00:00 00:00:00 Only Nicole 58169.1.1 ity of [place] 3.412.2.7 [place] .3.258602 MD [facility] 2021-04-23 2021-04-23 [facility], 1.2.840.1 [id number] 8324 Univers 00:00:00 00:00:00 Only Nicole 57485.1.1 ity of [place] 3.412.2.7 [place] .3.854507 MD [facility] 2021-04-23 2021-04-23 Travel 1.2.840.1 1.2.394.623 2470 042544 Univers 00:00:00 00:00:00 66903.1.1 350.1.13.41 ity of 3.412.2.7 2.2.7.3.698 [place] .3.737923 084Ramos [facility] 2021-04-20 2021-04-20 [facility], 1.2.840.1 [id number] Univers 11:46:55 23:59:00 Encounter Maria Fernanda V. 65937.1.1 i ty of 3.412.2.7 [place] .3.470214 MD [facility] 2021-04-20 2021-04-20 [facility], 1.2.840.1 [id number] 10 [id number] Univers 09:15:00 11:00:00 Procedure Maria Fernnada V. 93863.1.1 i ty of 3.412.2.7 [place] .3.126525 MD [facility] 2021-04-20 2021-04-20 Travel 1.2.840.1 1.2.789.093 8424 [id number] Univers 00:00:00 00:00:00 35026.1.1 350.1.13.41 ity of 3.412.2.7 2.2.7.3.698 [place] .3.482664 084Ramos [facility] 2021-04-16 2021-04-16 [facility], 1.2.840.1 [id number] 1 [id number] Univers 09:30:00 23:59:00 Encounter Taylorjenny Ann 54391.1.1 i ty of 3.412.2.7 [place] .3.295592 MD [facility] 2021-04-16 2021-04-16 Office NICHOLE Monreal, 1.2.840.1 [id number] 2885 Univers 09:00:00 10:36:47 Visit Herrera 20621.1.1 ity of 3.412.2.7 [place] .3.415578 MD [facility] 2021-04-16 2021-04-16 Travel 1.2.840.1 1.2.843.475 9466 [id number] Univers 00:00:00 00:00:00 89653.1.1 350.1.13.41 ity of 3.412.2.7 2.2[place]7.3.698 [place] .3.745960 084.8 MD [facility] 2021-04-13 2021-04-13 Raul Giraldo, 1.2.840.1 [id number] 2917 Univers 00:00:00 00:00:00 Only Wayne 05959.1.1 ity of 3.412.2.7 [place] .3.528311 MD [facility] 2021-04-07 2021-04-07 Raul Murguia 1.2.840.1 [id number] 4445 Univers 00:00:00 00:00:00 Only Kaylyn, 02629.1.1 ity of Deshawn 3.412.2.7 [place] .3.367174 MD [facility] 2021-04-07 2021-04-07 Nurse Taylor 1.2.840.1 [id number] Univers 00:00:00 00:00:00 Triage Juan Lehman 33897.1.1 it y of 3.412.2.7 [place] .3.011181 MD [facility] 2021-04-05 2021-04-05 Raul Lima, 1.2.840.1 [id number] 8617 Univers 00:00:00 00:00:00 Only Stella 98403.1.1 it y of 3.412.2.7 [place] .3.870574 MD [facility] 2021-04-04 2021-04-04 Angel Gonzalez, 1.2.840.1 [id number] 3742 Univers 00:00:00 00:00:00 Gurpreet Desiree 89017.1.1 it y of 3.412.2.7 [place] .3.737202 MD [facility] 2021-04-04 2021-04-04 Gabrielle Osborne 1.2.840.1 [id number] 10 [id number] Univers 00:00:00 00:00:00 Graciela 23016.1.1 ity of 3.412.2.7 [place] .3.758463 MD [facility] 2021-04-03 2021-04-03 Gillian Marr, 1.2.840.1 [id number] 1084 [id number] Univers 14:00:00 14:00:00 Alina 26764.1.1 ity of 3.412.2.7 [place] .3.970371 MD [facility] 2021-03-30 2021-03-30 Raul Lima, 1.2.840.1 [id number] 5612 Univers 00:00:00 00:00:00 Only Stella 06981.1.1 it y of 3.412.2.7 [place] .3.598488 MD [facility] 2021-03-29 2021-03-29 Raul Lima 1.2.840.1 [id number] 2429 Univers 00:00:00 00:00:00 Only Stella 27977.1.1 it y of 3.412.2.7 [place] .3.241510 MD [facility] 2021-03-27 2021-03-27 Raul Lima 1.2.840.1 [id number] [id number] 2645 Univers 00:00:00 00:00:00 Only Stella 55243.1.1 it y of 3.412.2.7 [place] .3.067736 MD [place]8 [facility] 2021-03-27 2021-03-27 Angel Santillan, 1.2.840.1 [id number] Univers 00:00:00 00:00:00 Wilfredo Stewart 19157.1.1 ity of 3.412.2.7 [place] .3.525577 MD [place]8 [facility] 2021-03-09 2021-03-09 Raul Perez, 1.2.840.1 [id number] Univers 00:00:00 00:00:00 Only Tanja Mora 78789.1.1 ity of 3.412.2.7 [place] .3.152099 MD [place]8 [facility] 2021-03-08 2021-03-08 Raul Lima, 1.2.840.1 [id number] Univers 00:00:00 00:00:00 Only Stella 23037.1.1 it y of 3.412.2.7 [place] .3.496575 MD [place]8 [facility] 2021-03-07 2021-03-07 Raul Perez, 1.2.840.1 [id number] Univers 00:00:00 00:00:00 Only Tanja Mora 96513.1.1 ity of 3.412.2.7 [place] .3.791838 MD [place]8 [facility] 2021-03-07 2021-03-07 Documentat Precious, 1.2.840.1 [id number] Univers 00:00:00 00:00:00 ion Benedicto 79851.1.1 ity of 3.412.2.7 [place] .3.834648 MD [place]8 [facility] 2021-03-07 2021-03-07 Angel Rivas, 1.2.840.1 [id number] Univers 00:00:00 00:00:00 Yudith Lehman 99159.1.1 ity of 3.412.2.7 [place] .3.154581 .8 [facility] 2021-03-07 2021-03-07 Mariza Langley 1.2.840.1 [id number] Univers 00:00:00 00:00:00 lino Shoemaker 42263.1.1 ity of Sofi 3.412.2.7 [place] .3.239032 .8 [facility] 2021-02-16 2021-03-02 Inpatient UR SMITH, [facility] [id number] 13:50:00 18:30:00 IRINA Leesers o n 2021-03-02 2021-03-02 Inpatient EL SMITH, MDA MDA [id number] MD 10:28:13 10:52:29 IRINA Leesers o erasmo 2021-03-01 2021-03-01 Inpatient GABRIELLE SQUIRES MDA MDA [id number] 13:48:32 14:24:14 Bakari o erasmo 2021-02-28 2021-02-28 Inpatient EL GABRIELLE GONZALEZ MDA MDA [id number] 15:34:04 16:08:02 Bakari o erasmo 2021-02-27 2021-02-27 Inpatient EL CORDELLELLA, MDA MDA [id number] 11:31:18 11:31:23 MARIA FERNANDA Leseers o erasmo 2021-02-23 2021-02-23 Inpatient EL JOSE, MDA MDA [id number] 08:50:18 09:09:38 MARCIN Villegas o erasmo 2021-02-20 2021-02-20 Inpatient EL HALM, MDA MDA [id number] 21:52:07 22:45:31 MAYANK Leesers o erasmo 2021-02-19 2021-02-19 Inpatient EL HALM, MDA MDA [id number] 16:34:08 16:35:56 MAYANK Leesers o erasmo 2021-02-19 2021-02-19 Inpatient EL HALM, MDA MDA [id number] MD 14:32:55 14:50:27 MAYANK Leesers o erasmo 2021-02-19 2021-02-19 Inpatient EL FOSSELLA, MDA MDA [id number] 11:06:11 11:06:14 MARIA FERNANDA zimmerman 2021-02-18 2021-02-18 Inpatient EL MARLI, MDA MDA [id number] 15:44:22 16:22:28 MAYANK Bakari zimmerman 2021-02-17 2021-02-17 Inpatient EL TOD GLASS MDA MDA [id number] 03:53:53 04:06:50 Bakari zimmerman 2021-01-21 2021-01-30 Inpatient ER ODARO, [facility] [id number] 21:38:00 18:36:00 BENEDICTO zimmerman 2021-01-30 2021-01-30 Inpatient EL FOSSELLA, MDA MDA [id number] 15:18:04 15:18:06 MARIA FERNANDA zimmerman 2021-01-28 2021-01-28 Inpatient EL AL AMERI, MDA MDA [id number] 13:47:27 13:49:05 RASHAAD zimmerman 2021-01-25 2021-01-25 Inpatient EL AL AMERI, MDA MDA [id number] 20:37:26 20:37:30 RASHAAD zimmerman 2021-01-24 2021-01-24 Inpatient EL AL AMERI, MDA MDA [id number] 08:18:01 08:38:37 RASHAAD zimmerman 2021-01-22 2021-01-22 Inpatient EL AL AMERI, MDA MDA [id number] 19:02:05 19:25:15 RASHAAD zimmerman 2021-01-04 2021-01-19 Inpatient ER SIMBAQUEBA [facility] [id number] 11:01:00 16:25:00 Levi RAJPUT 2021-01-18 2021-01-18 Inpatient EL FOSSELLA, MDA MDA [id number] 11:15:46 11:15:49 MARIA FERNANDA zimmerman 2021-01-15 2021-01-15 Inpatient EL FOSSELLA, MDA MDA [id number] 10:54:17 10:54:19 MARIA FERNANDA zimmerman 2021-01-14 2021-01-14 Inpatient EL RAMSEY, MDA MDA [id number] 12:12:50 13:22:39 [facility] Marianela griffith Popeye n 2021-01-12 2021-01-12 Inpatient EL FOSSELLA, MDA MDA [id number] 11:16:26 11:16:28 MARIA FERNANDA zimmerman 2021-01-10 2021-01-10 Inpatient EL FOSSELLA, MDA MDA [id number] 12:34:26 12:34:30 MARIA FERNANDA zimmerman 2021-01-09 2021-01-09 Inpatient EL ESTES, MDA MDA [id number] 21:30:37 21:42:18 GURPREET zimmerman 2021-01-08 2021-01-08 Inpatient EL ESTES, MDA MDA [id number] 11:15:00 12:40:27 GURPREET zimmerman 2021-01-07 2021-01-07 Inpatient EL ALEXUS, MDA MDA [id number] 09:48:34 10:43:19 BONI zimmerman 2021-01-05 2021-01-05 Inpatient EL FOSSELLA, MDA MDA [id number] 10:28:44 10:28:46 MARIA FERNANDA zimmerman 2020-12-26 2020-12-26 Outpatient EL FOSSELLA, MDA MDA [id number] 13:17:22 13:49:03 MARIA FERNANDA zimmerman 2020-12-22 2020-12-22 Outpatient EL FOSSELLA, MDA MDA [id number] 15:44:28 15:44:28 MARIA FERNANDA zimmerman 2020-12-20 2020-12-20 Outpatient EL FOSSELLA, MDA MDA [id number] 14:45:38 15:10:28 MARIA FERNANDA zimmerman 2020-12-19 2020-12-19 Outpatient EL FOSSELLA, MDA MDA [id number] 15:02:13 15:33:05 MARIA FERNANDA zimmerman 2020-12-18 2020-12-18 Outpatient EL FOSSELLA, MDA MDA [id number] 14:30:00 23:59:00 MARIA FERNANDA zimmerman 2020-12-18 2020-12-18 Outpatient EL TEJINDERRAYMUNDO MDA MDA [id number] 15:34:19 15:34:19 Bakari zimmerman 2020-12-18 2020-12-18 Outpatient EL FOSSELLA, MDA MDA [id number] 14:39:45 15:30:31 MARIA FERNANDA zimmerman 2020-12-15 2020-12-15 Outpatient EL FOSSELLA, MDA MDA [id number] 14:01:01 14:06:41 MARIA FERNANDA zimmerman 2020-11-20 2020-11-24 Inpatient RUSSELL CARRILLO [facility] PUJA [id number] Univers 00:18:00 16:31:00 [facility] 2020-10-26 2020-10-26 Outpatient R [facility] [id number] Univers 09:00:00 09:00:00 [facility] 2020-10-17 2020-10-17 Outpatient R LIND, [facility] [id number] Univers 09:30:00 09:30:00 JACKSON [facility] 2020-07-27 2020-07-27 Outpatient R UNKNOWN, [facility] [id number] Univers 14:30:00 14:30:00 ATTENDING [facility] 2020-07-05 2020-07-05 Outpatient NICHOLE WORRELL, MDA MDA [id number] 10:29:44 10:55:21 HERRERA zimmerman 2020-04-28 2020-04-29 Inpatient HC[facility] DANDRE [id number] [facility] 02:28:00 09:27:09 18 [facility] 2020-04-27 2020-04-27 Outpatient EL CORDELLELLA, MDA MDA [id number] 06:26:24 06:26:24 MARIA FERNANDA zimmerman 2020-04-25 2020-04-25 Outpatient EL FOSSELLA, MDA MDA [id number] 15:16:25 23:59:00 MARIA FERNANDA zimmerman 2020-04-25 2020-04-25 Outpatient EL FOSSELLA, MDA MDA [id number] 16:52:13 16:52:13 MARIA FERNANDA zimmerman 2020-04-21 2020-04-21 Outpatient EL FOSSELLA, MDA MDA [id number] 12:34:59 15:51:01 MARIA FERNANDA zimmerman 2020-04-17 2020-04-17 Outpatient EL NAVEENKILOROCKY MDA MDA [id number] 11:29:21 23:59:00 Bakari zimmerman 2020-04-17 2020-04-17 Outpatient EL MDA MDA [id number] MD 09:00:09 11:28:00 Bakari zimmerman 2020-04-17 2020-04-17 Outpatient EL ROSA MARIA, MDA MDA [id number] MD 09:38:52 11:12:52 CODY zimmerman 2020-04-14 2020-04-14 Outpatient EL MDA MDA [id number] MD 11:14:57 23:59:00 Bakarijanice zimmerman 2020-04-14 2020-04-14 Outpatient EL AURELIANO EDWARD MDA MDA [id number] MD 12:35:21 13:51:10 Bakari o erasmo 2020-04-14 2020-04-14 Outpatient EL MDA MDA [id number] MD 08:26:38 11:13:00 Bakarijanice zimmreman 2020-04-13 2020-04-13 Outpatient EL MDA MDA [id number] MD 15:45:00 23:59:00 Bakari o erasmo 2020-04-13 2020-04-13 Outpatient EL MDA MDA [id number] MD 13:53:11 15:44:00 Bakari o erasmo 2020-04-13 2020-04-13 Outpatient EL MDA MDA [id number] MD 13:27:19 13:52:00 Bakari o erasmo 2020-04-13 2020-04-13 Outpatient EL MDA MDA [id number] MD 10:45:00 13:26:00 Bakari o erasmo 2020-04-13 2020-04-13 Outpatient EL ROSA MARIA, MDA MDA [id number] MD 07:39:14 10:44:00 CODY zimmerman 2020-04-12 2020-04-12 Outpatient EL ILILAWANDA, MDA MDA [id number] MD 12:45:00 23:59:00 ORACIO zimmerman 2020-04-11 2020-04-11 Outpatient EL BRENDON, MDA MDA [id number] MD 11:45:00 23:59:00 WILFREDO zimmerman 2020-04-11 2020-04-11 Outpatient EL BRENDON, MDA MDA [id number] MD 11:23:21 11:23:21 WILFREDO Villegas o erasmo 2020-03-31 2020-03-31 Outpatient EL CONATSally, MDA MDA [id number] MD 08:00:00 23:59:00 MAURICIO zimmerman 2020-03-31 2020-03-31 Outpatient EL CRANE, MDA MDA [id number] 08:51:09 09:59:36 CODY zimmerman 2020-03-20 2020-03-20 Outpatient EL ILILAWANDA, MDA MDA [id number] 10:02:47 10:02:47 ORACIO Leesers o erasmo 2020-03-20 2020-03-20 Outpatient EL REGINA, MDA MDA [id number] 09:57:25 09:57:25 HAYLEY Bakari o n 2020-03-10 2020-03-10 Outpatient EL REGINA, MDA MDA [id number] 08:10:34 08:10:34 HAYLEY Leesers o erasmo 2020-03-02 2020-03-02 Outpatient EL REGINA, MDA MDA [id number] MD 12:40:44 23:59:00 HAYLEY Leesers o erasmo 2020-03-02 2020-03-02 Outpatient EL ILILAWANDA, MDA MDA [id number] MD 10:20:00 14:05:06 ORACIO Leesers o n 2020-03-02 2020-03-02 Outpatient EL REGINA, MDA MDA [id number] 12:15:00 12:39:00 HAYLEY Leesers o n 2020-03-02 2020-03-02 Outpatient EL ILILAWANDA, MDA MDA [id number] MD 10:29:25 10:29:25 ROACIO Leesers o n 2020-03-02 2020-03-02 Outpatient EL MDA MDA [id number] MD 10:00:01 10:00:10 Bakari o erasmo 2020-02-29 2020-02-29 Outpatient EL MDA MDA [id number] MD 13:58:52 14:24:33 Bakari o erasmo 2019-08-26 2019-08-26 Outpatient PASCALE Jaimes W [id number] [facility] 12:48:00 12:48:00 [facility] 2019-08-12 2019-08-15 Inpatient HCAM[facility] DANDRE [id number] [facility] 20:09:00 22:33:31 69 [facility] Results Test Description Test Time Test Comments Results Result Comments Source Electrolyte Panel 2023-01-22 16:07:36 Test Item Value Reference Range Interpretation Comme nts Sodium Lvl (test code = 136 See_Comment [Au tomated message] The system 2951-2) which generated this result transmitted ref erence range: 136 - 145 mEq/L. Th e reference range was not used to interpret this result as paras l/abnormal. Potassium Lvl (test code = 3.5 See_Comment [Automated message] The system 2823-3) which generated this result transmitted ref erence range: 3.5 - 5.1 mEq/L. Th e reference range was not used to interpret this result as paras l/abnormal. Chloride (test code = 2075-0) 100 See_Comment [Automated message] The system which generated this result transmitted ref erence range: 98 - 107 mEq/L. Th e reference range was not used to interpret this result as paras l/abnormal. CO2 (test code = 8-9) 32 See_Comment H [A utomated message] The system which generated this result transmitted ref erence range: 22 - 29 mEq/L. The reference range was not used to interpret this result as paras l/abnormal. Anion Gap (test code = 4 See_Comment [Aut omated message] The system 21586-0) which generated this result transmitted ref erence range: 4 - 14 mEq/L. The r eference range was not used to interpret this result as paras l/abnormal. Lab Interpretation (test code Abnormal = 02701-6) [facility] [id number] 16:07:26 Test Item Value Reference Range Interpretation Comments Total Protein (test code = 2885-2) 6.7 g/dL 6.4-8.[address] [facility] [id number] 16:07:25 Test Item Value Reference Range Interpretation Comments Calcium Lvl (test code = 12009-5) 9.1 mg/dL 8.4-10.[address] [facility] [facility] HospitalALT2023-07-26 16:07:24 ALT<5<=41 U/LUT [facility]20[facility]-26 16:07:23 Test Item Value Reference Range Interpretation Comments BUN (test code = 3094-0) 9 mg/dL 6-[address] [facility] HospitalGlucose [id number] 16:07:22 Test Item Value Reference Range Interpretation Comments Glucose Level (test 74 mg/dL 70-99 Effectiv e 01/24/16, the code = 2345-7) glucose refer ence intervals have been updated based o n [place] [employer] octaviano delines (Standards of M edical Care in Diabete s 2016. Diabetes Care 2 016; 39: S13-S22).Fastin g blood glucose:Normal: 70-99 mg/dLImpaired f asting glucose (increa sed risk for diabetes or pre-diabetes): 100-125 mg/dLDiabetes m ellitus: >/=126 mg/dL Ra ndom blood glucose:N ormal: 70-199 mg/dLNot e: Random glucose >100 mg /dL is associated with increased risk for diabetes [facility] HospitalFractionated Wfrmettck4751-72-37 16:07:21Bili Total<0.3<=1.2 mg/dLUT [facility] Rate 2023-01-22 16:07:20 Test Item Value Reference Range Interpretation Comments eGFR (test code = 101 See_Comment The eGFRcr [place] calculated with 23747-0) the 2020 CKD-EP I creatinine equation using [...] nor G2 fulfill criteri a for CKD. [Automated mess age] The system which ge nerated this result transmit lakhwinder reference range: >=60 mL/ min/1.73 sq. m. The referenc e range was not used to int erpret this result as paras l/abnormal. [facility] HospitalAlkaline Ikwphdxhybe1058-14-21 16:07:19 Test Item Value Reference Range Interpretation Comments Alk Phos (test code = 6768-6) 75 U/L 40-[address] [facility] HospitalAlbumin [id number] 16:07:18 Test Item Value Reference Range Interpretation Comments Albumin Lvl (test code 3.8 See_Comment [Aut omated message] The = 1751-7) system which ge nerated this result tra nsmitted reference range : 3.5 - 5.2 gm/dL. The refe rence range was not used to interpret this result as normal/abnormal . [facility] HospitalAspartate Aminotransferase 2023-01-22 16:07:17 Test Item Value Reference Range Interpretation Comments AST (test code = 1920-8) 12 U/L <=[address] [facility].Serum [id number] 16:07:15 Test Item Value Reference Range Interpretation Comments Creatinine (test code = 2160-0) 0.68 mg/dL 0.67-1.[address] [facility] HospitalDifferential2023-07-26 15:26:55 Test Item Value Reference Range Interpretation Comments Neutrophil % (test code 65.7 % 43.2-72.7 = 6491) Lymphocyte % (test code 24.7 % 16.8-46.2 = 6194) Monocyte % (test code = 6.7 % 5.1-12.5 6422) Eosinophil % (test code 2.1 % 0.4-6.3 = 5520) Basophil % (test code = 0.5 % 0.2-1.4 5068) IGRE % (test code = 0.3 % 0.1-1.5 IGRE % c ount includes 5958) Metamyelocytes, Myelocytes, and Promyelocytes. Neutrophil Abs (test 6.82 K/uL 1.95-7.25 code = 6492) Lymphocyte Abs (test 2.56 K/uL 1.01-3.24 code = 6195) Monocyte Abs (test code 0.70 K/uL 0.24-0.85 = 6423) Eosinophil Abs (test 0.22 K/uL 0.02-0.50 code = 5521) Basophil Abs (test code 0.05 K/uL 0.02-0.09 = 5069) IG Abs (test code = 0.03 K/uL 0.01-0.12 5954) [facility].[id number] 15:26:48 Test Item Value Reference Range Interpretation Comments WBC (test code = 8034) 10.4 K/uL 4.1-10.5 RBC (test code = 6932) 3.73 See_Comment L [Aut omated message] The system [employer] generated this result transmitted ref erence range: 4.30 - 6 .04 M/uL. The refer ence range was not u sed to interpret this result as normal/abnor mal. Hgb (test code = 5898) 11.7 See_Comment L [Aut omated message] The system [employer] generated this result transmitted ref erence range: 13.3 - 1 7.4 gm/dL. The refe rence range was not u sed to interpret this result as normal/abnor mal. Hct (test code = 5860) 35.1 % 39.5-51.8 L MCV (test code = 6222) 94 fL 82-99 MCH (test code = 6220) 31.4 pg 26.6-33.2 MCHC (test code = 6221) 33.3 See_Comment [Au tomated message] The system [employer] generated this result transmitted ref erence range: 31.1 - 3 5.2 gm/dL. The refe rence range was not u sed to interpret this result as normal/abnor mal. RDW-SD (test code = 51.5 fL 37.5-49.7 H 6972) RDW-CV (test code = 14.9 % 11.6-15.5 6971) Platelet count (test 337 K/uL 160-397 code = 6832) MPV (test code = 6282) 9.9 fL 9.1-12.6 INRBC (test code = 0.0 See_Comment The INRBC (instrument 5974) NRBC) value ref lects the enumeration of nucleated red b lood cells contained in a 200uL sampleof whole blood analyzed by the instrument. Thi s value maydiffer from the NRBC value reported in a m anual differential,wh ich is based on a 100 cell differential. [Automated mess age] The system [employer] h generated this result transmitted ref erence range: 0.0 - 0. 1 /100 WBC. The refere nce range was not u sed to interpret this result as normal/abnor mal. Lab Interpretation Abnormal (test code = 96186-8) [facility] Lsnqazgyqz2086-90-29 14:23:13 Test Item Value Reference Range Interpretation Comments POC Crea (test code 0.5 mg/dL 0.6-1.3 L Medicati ons, = 17987-0) especially hydroxyurea or supplements, nunez ch as ascorbate, can interfere with test results [...] of various anal ytes in whole blood. The device uses a s nuvia disposable cart ridge which contains microfabricated sensors, a calibration kathi ution, fluidics system , and a waste chamber . Each test cartridge contains chemic ally sensitive biose nsors on a Grinbath ip that are config ured to perform spec ific tests. The microfabricated sensors measure analyte concent ration by an electroch emical assay. POC EGFR (test code 111 See_Comment The eGFR cr is = 19622) calculated with the 2020 CKD-EPI creatinine equa tion using creatinin e, patient's age, and sex for adults 18 years of age an d older. Other fa ctors, especially musc le mass, may affec t accuracy and ne ed to be considered.Acco rding to the Kidney Disease: Improv ing Global Outcomes (KDIGO) CKD Wor k Group 2012 Clin ical Practice Guidel ine, chronic kidney disease (CKD) i s defined as the abnormalities o f kidney structur e or function, prese nt for more than 3 mon ths, with implicatio ns for health. CKD baylee uld be classified by c kota, GFR category, a nd albuminuria cat egory. KDIGO guideline s provide the fol lowing GFR categoriesS tage Description GFR mL/min/1.73 m2G 1* Normal or high >= 90G2* Mildly decreased 60-89 G3a Mildly to moder ately decreased 45-59 G3b Moderately to severely decrea sed 30-44G4 Severel y decreased 15-29 G5 Kidney failure <15*In the absence of evidence of kid alicia damage, neither G1 nor G2 fulfill criteria for CK D. [Automated mess age] The system [employer] generated this result transmitted ref erence range: >=60 mL/min/1.73 sq. m. The reference r jose was not used to interpret this result as normal/abnor mal. POC Clean Dev (test Yes code = 6672) Performing Lab (test MDA Main Main Ca mpus code = 84604) [facility] Cli nical Lab, [address], [place] [address]; Maintenance Services Dispatcher: Aletha Arciniega MD; Waived Point of Care Testing - Rosina real MD Lab Interpretation Abnormal (test code = 11675-4) [facility] [id number] 14:14:11Bili Total<0.3<=1.2 mg/dLMAYS [facility] Iuvchpxdx9540-75-89 14:14:11Bili Total<0.3<=1.2 mg/dLMAYS [facility] Dyijmbpzz1985-05-10 14:14:11Bili Total<0.3<=1.2 mg/dLMAYS [facility] CenterF[facility]ated Pnruqmrer4170-61-70 14:14:11Bili Total<0.3<=1.2 mg/dLMAYS [facility] CenterF[facility]ated Sgyknsklj8250-50-35 14:14:11Bili Total<0.3<=1.2 mg/dLMAYS [facility] CenterGlomerular Filtration [id number] 14:14:10 Test Item Value Reference Range Interpretation Comments eGFR (test 105 See_Comment The eGFRcr is c alculated code = with the 2020 C KD-EPI 57658-1) creatinine equa tion using creatinin e, patient's [...] eria for CKD. Testing Pe rformed at [facility], [facility] [facility], [address], [place] [address] [Autom ated message] The sy stem which generated this result transmit lakhwinder reference range : >=60 mL/min/1.73 sq. m. The reference range was not used to interpr et this result as normal/abnormal . PAIGE (test Schedule same day code = PAIGE) tests/clinic appt [facility] Rate 2022-09-13 14:14:10 Test Item Value Reference Range Interpretation Comments eGFR (test 105 See_Comment The eGFRcr is c alculated code = with the 2020 C KD-EPI 94979-9) creatinine equa tion using creatinin e, patient's [...] eria for CKD. Testing Pe rformed at [facility], [address] [facility], [address], [place] [address] [Autom ated message] The sy stem which generated this result transmit lakhwinder reference range : >=60 mL/min/1.73 sq. m. The reference range was not used to interpr et this result as normal/abnormal . PAIGE (test Schedule same day code = PAIGE) tests/clinic appt [facility] 2022-09-13 14:14:10 Test Item Value Reference Range Interpretation Comments eGFR (test 105 See_Comment The eGFRcr is c alculated code = with the 2020 C KD-EPI 21467-0) creatinine equa tion using creatinin e, patient's [...] eria for CKD. Testing Pe rformed at [facility], [address] [facility], [address], [place] [address] [Autom ated message] The sy stem which generated this result transmit lakhwinder reference range : >=60 mL/min/1.73 sq. m. The reference range was not used to interpr et this result as normal/abnormal . PAIGE (test Schedule same day code = PAIGE) tests/clinic appt [facility] Rate 2022-09-13 14:14:10 Test Item Value Reference Range Interpretation Comments eGFR (test 105 See_Comment The eGFRcr is c alculated code = with the 2020 C KD-EPI 19256-0) creatinine equa tion using creatinin e, patient's [...] eria for CKD. Testing Pe rformed at [facility], [address] [facility], [address], [place] [address] [Autom ated message] The sy stem which generated this result transmit lakhwinder reference range : >=60 mL/min/1.73 sq. m. The reference range was not used to interpr et this result as normal/abnormal . PAIGE (test Schedule same day code = PAIGE) tests/clinic appt [facility] Rate 2022-09-13 14:14:10 Test Item Value Reference Range Interpretation Comments eGFR (test 105 See_Comment The eGFRcr is c alculated code = with the 2020 C KD-EPI 82816-9) creatinine equa tion using creatinin e, patient's [...] eria for CKD. Testing Pe rformed at [facility] Ambu latory Care [facility], [address] [facility], [address], [place] [address] [Autom ated message] The sy stem which generated this result transmit lakhwinder reference range : >=60 mL/min/1.73 sq. m. The reference range was not used to interpr et this result as normal/abnormal . PAIGE (test Schedule same day code = PAIGE) [facility] [id number] 14:14:09 Test Item Value Reference Range Interpretation Comments Total Protein 7.2 g/dL 6.4-8.3 Testing Perfor med (test code = at [facility] 2885-2) Litigation Claim Representative [facility], [address], [address], [place], [place] [address] PAIGE (test code = Schedule same day PAIGE) tests[facility] [id number] 14:14:09 Test Item Value Reference Range Interpretation Comments Total Protein 7.2 g/dL 6.4-8.3 Testing Perfor med (test code = at [facility] 2885-2) Litigation Claim Representative [facility], [address], [address], [place], [place] [address] PAIGE (test code = Schedule same day PAIGE) [facility] [id number] 14:14:09 Test Item Value Reference Range Interpretation Comments Total Protein 7.2 g/dL 6.4-8.3 Testing Perfor med (test code = at [facility] 2885-2) Litigation Claim Representative [facility], [address], [address], [place], [place] [address] PAIGE (test code = Schedule same day PAIGE) [facility] [id number] 14:14:09 Test Item Value Reference Range Interpretation Comments Total Protein 7.2 g/dL 6.4-8.3 Testing Perfor med (test code = at [facility] 2885-2) Litigation Claim Representative [facility], [address], [address], [place], [place] [address] PAIGE (test code = Schedule same day PAIGE) [facility] [id number] 14:14:09 Test Item Value Reference Range Interpretation Comments Total Protein 7.2 g/dL 6.4-8.3 Testing Perfor med (test code = at [facility] 2885-2) Litigation Claim Representative [facility], [address], [address], [place], [place] [address] PAIGE (test code = Schedule same day PAIGE) tests[facility]inic [facility] [id number] 14:14:08 Test Item Value Reference Range Interpretation Comments Calcium Lvl (test 9.4 mg/dL 8.4-10.2 Testing Pe rformed code = 06652-6) at [facility] Litigation Claim Representative [facility], [address], [address], [place], [place] [address] PAIGE (test code = Schedule same day PAIGE) tests[facility] Adggu9086-11-00 14:14:08 Test Item Value Reference Range Interpretation Comments Calcium Lvl (test 9.4 mg/dL 8.4-10.2 Testing Pe rformed code = 86291-2) at [facility] Litigation Claim Representative [facility], [address], [place] [address] PAIGE (test code = Schedule same day PAIGE) tests[facility]inic [facility] [id number] 14:14:08 Test Item Value Reference Range Interpretation Comments Calcium Lvl (test 9.4 mg/dL 8.4-10.2 Testing Pe rformed code = 82530-5) at [facility] Litigation Claim Representative [facility], [address], [address], [place] [address] PAIGE (test code = Schedule same day PAIGE) tests[facility]inic [facility] [id number] 14:14:08 Test Item Value Reference Range Interpretation Comments Calcium Lvl (test 9.4 mg/dL 8.4-10.2 Testing Pe rformed code = 95141-8) at [facility] Litigation Claim Representative [facility], [address], [address], [place] [address] PAIGE (test code = Schedule same day PAIGE) tests[facility]inic [facility] [id number] 14:14:08 Test Item Value Reference Range Interpretation Comments Calcium Lvl (test 9.4 mg/dL 8.4-10.2 Testing Pe rformed code = 47919-6) at [facility] Litigation Claim Representative [facility], [address], [place] [address] PAIGE (test code = Schedule same day PAIGE) tests[facility]inic [facility] Pnnhmlrcsox1590-07-17 14:14:07 Test Item Value Reference Range Interpretation Comments Alk Phos (test 94 U/L 40-129 Testing Perfo rmed at code = 6768-6) [facility] Ambul atory Care [facility], [address], [place] [phone] PAIGE (test code Schedule same day = PAIGE) tests[facility]clinic [facility] [id number] 14:14:07 Test Item Value Reference Range Interpretation Comments Alk Phos (test 94 U/L 40-129 Testing Perfo rmed at code = 6768-6) [facility] Ambul atory Care Bldg, [address], [place] [address] PAIGE (test code Schedule same day = PAIGE) tests[facility]clinic [facility]Al[facility] [id number] 14:14:07 Test Item Value Reference Range Interpretation Comments Alk Phos (test 94 U/L 40-129 Testing Perfo rmed at code = 6768-6) [facility] Ambul atory Care Bldg, [address], [place] [address] PAIGE (test code Schedule same day = PAIGE) tests[facility]clinic [facility] [id number] 14:14:07 Test Item Value Reference Range Interpretation Comments Alk Phos (test 94 U/L 40-129 Testing Perfo rmed at code = 6768-6) [facility] Ambul atory Care Bldg, [address], [address], [place] [address] PAIGE (test code Schedule same day = PAIGE) tests[facility]clinic [facility] [id number] 14:14:07 Test Item Value Reference Range Interpretation Comments Alk Phos (test 94 U/L 40-129 Testing Perfo rmed at code = 6768-6) [facility] Ambul atory Care Bldg, [address], [place] [address] PAIGE (test code Schedule same day = PAIGE) tests[facility]clinic [facility] HospitalElectrolyte [id number] 14:14:06 Test Item Value Reference Range Interpretation Comments Sodium Lvl (test 141 See_Comment Testing Per formed code = 2951-2) at [facility] Litigation Claim Representative Bldg, [address], [address], [place], [place] [address] [Automated mess age] The system GoFishic h generated this result transmit lakhwinder reference range : 136 - 145 mEq/L . The reference r jose was not used to interpret this result as normal/abnormal . Potassium Lvl 3.9 See_Comment Testing Perfor med (test code = at [facility] 2823-3) [facility], [facility], [address], [place], [place] [address] [Automated mess age] The system [employer] h generated this result transmit lakhwinder reference range : 3.5 - 5.1 mEq/L . The reference r jose was not used to interpret this result as normal/abnormal . Chloride (test 105 See_Comment Testing Perfo rmed code = 2075-0) at [facility], [facility], [address], [place], [place] [address] [Automated mess age] The system WHMSOFT generated this result transmit lakhwinder reference range : 98 - 107 mEq/L. Th e reference range was not used to interpret this result as normal/abnormal . CO2 (test code = 25 See_Comment Testing Per formed 2028-02) at [facility], [address] [place] [address], [address], [place], [place] [address] [Automated mess age] The system WHMSOFT generated this result transmit lkahwinder reference range : 22 - 29 mEq/L. The reference range was not used to interpret this result as normal/abnormal . Anion Gap (test 11 See_Comment Testing Perf ormed code = 58300-8) at [facility], [address], [address], [place], [place] [address] [Automated mess age] The system WHMSOFT generated this result transmit lakhwinder reference range : 4 - 14 mEq/L. The reference range was not used to interpret this result as normal/abnormal . PAIGE (test code = Schedule same day PAIGE) tests/clinic appt [facility] [id number] 14:14:06 Test Item Value Reference Range Interpretation Comments Sodium Lvl (test 141 See_Comment Testing Per formed code = 2951-2) at [facility] Litigation Claim Representative [facility], [address], [address], [place], [place] [address] [Automated mess age] The system [employer] [address] generated this result transmit lakhwinder reference range : 136 - 145 mEq/L . The reference r jose was not used to interpret this result as normal/abnormal . Potassium Lvl 3.9 See_Comment Testing Perfor med (test code = at [facility] 2823-3) [facility], [address] [place] [address], [address], [place] [address] [Automated mess age] The system [employer] [address] generated this result transmit lakhwinder reference range : 3.5 - 5.1 mEq/L . The reference r jose was not used to interpret this result as normal/abnormal . Chloride (test 105 See_Comment Testing Perfo rmed code = 2075-0) at [facility], [facility], [address], [place], [place] [address] [Automated mess age] The system WHMSOFT generated this result transmit lakhwinder reference range : 98 - 107 mEq/L. Th e reference range was not used to interpret this result as normal/abnormal . CO2 (test code = 25 See_Comment Testing Per formed 2028-02) at [facility], [address] [place] [address], [address], [place] [address] [Automated mess age] The system WHMSOFT generated this result transmit lakhwinder reference range : 22 - 29 mEq/L. The reference range was not used to interpret this result as normal/abnormal . Anion Gap (test 11 See_Comment Testing Perf ormed code = 70857-6) at [facility], [address] [place] [address], [address], [place], [place] [address] [Automated mess age] The system WHMSOFT generated this result transmit lakhwinder reference range : 4 - 14 mEq/L. The reference range was not used to interpret this result as normal/abnormal . PAIGE (test code = Schedule same day PAIGE) tests/clinic appt [facility] [id number] 14:14:06 Test Item Value Reference Range Interpretation Comments Sodium Lvl (test 141 See_Comment Testing Per formed code = 2951-2) at [facility], [address] [place] [address], [address], [place], [place] [address] [Automated mess age] The system WHMSOFT generated this result transmit lakhwinder reference range : 136 - 145 mEq/L . The reference r jose was not used to interpret this result as normal/abnormal . Potassium Lvl 3.9 See_Comment Testing Perfor med (test code = at [facility] 2823-3) [facility], [facility], [address], [place], [place] [address] [Automated mess age] The system [employer] [address] generated this result transmit lakhwinder reference range : 3.5 - 5.1 mEq/L . The reference r jose was not used to interpret this result as normal/abnormal . Chloride (test 105 See_Comment Testing Perfo rmed code = 2075-0) at [facility], [address] [facility] [address], [address], [place], [place] [address] [Automated mess age] The system WHMSOFT generated this result transmit lakhwinder reference range : 98 - 107 mEq/L. Th e reference range was not used to interpret this result as normal/abnormal . CO2 (test code = 25 See_Comment Testing Per formed 2028-02) at [facility], [address] [facility] [address], [address], [place], [place] [address] [Automated mess age] The system WHMSOFT generated this result transmit lakhwinder reference range : 22 - 29 mEq/L. The reference range was not used to interpret this result as normal/abnormal . Anion Gap (test 11 See_Comment Testing Perf ormed code = 18279-7) at [facility], [facility], [address], [place], [place] [address] [Automated mess age] The system WHMSOFT generated this result transmit lakhwinder reference range : 4 - 14 mEq/L. The reference range was not used to interpret this result as normal/abnormal . PAIGE (test code = Schedule same day PAIGE) tests/clinic appt [facility] [id number] 14:14:06 Test Item Value Reference Range Interpretation Comments Sodium Lvl (test 141 See_Comment Testing Per formed code = 2951-2) at [facility], [facility], [address], [place], [place] [address] [Automated mess age] The system WHMSOFT generated this result transmit lakhwinder reference range : 136 - 145 mEq/L . The reference r jose was not used to interpret this result as normal/abnormal . Potassium Lvl 3.9 See_Comment Testing Perfor med (test code = at [facility] 2823-3) [facility], [facility], [address], [place], [place] [address] [Automated mess age] The system [employer] [address] generated this result transmit lakhwinder reference range : 3.5 - 5.1 mEq/L . The reference r jose was not used to interpret this result as normal/abnormal . Chloride (test 105 See_Comment Testing Perfo rmed code = 2075-0) at [facility] Litigation Claim Representative [facility], [address], [address], [place], [place] [address] [Automated mess age] The system [employer] [address] generated this result transmit lakhwinder reference range : 98 - 107 mEq/L. Th e reference range was not used to interpret this result as normal/abnormal . CO2 (test code = 25 See_Comment Testing Per formed 2028-02) at [facility], [facility], [address], [place], [place] [address] [Automated mess age] The system WHMSOFT generated this result transmit lakhwinder reference range : 22 - 29 mEq/L. The reference range was not used to interpret this result as normal/abnormal . Anion Gap (test 11 See_Comment Testing Perf ormed code = 67497-9) at [facility] Litigation Claim Representative [facility], [address] [facility] [address], [address], [place], [place] [address] [Automated mess age] The system WHMSOFT generated this result transmit lakhwinder reference range : 4 - 14 mEq/L. The reference range was not used to interpret this result as normal/abnormal . PAIGE (test code = Schedule same day PAIGE) tests/clinic appt [facility] [id number] 14:14:06 Test Item Value Reference Range Interpretation Comments Sodium Lvl (test 141 See_Comment Testing Per formed code = 2951-2) at [facility] Litigation Claim Representative [facility], [address], [address], [place] [address] [Automated mess age] The system WHMSOFT generated this result transmit lakhwinder reference range : 136 - 145 mEq/L . The reference r jose was not used to interpret this result as normal/abnormal . Potassium Lvl 3.9 See_Comment Testing Perfor med (test code = at [facility] 2823-3) Litigation Claim Representative [facility], [address], [address], [place], [place] [address] [Automated mess age] The system whic h generated this result transmit lakhwinder reference range : 3.5 - 5.1 mEq/L . The reference r jose was not used to interpret this result as normal/abnormal . Chloride (test 105 See_Comment Testing Perfo rmed code = 2075-0) at [facility] Litigation Claim Representative Bldg, [address], [address], [place], [place] [address] [Automated mess age] The system [employer] [address] generated this result transmit lakhwinder reference range : 98 - 107 mEq/L. Th e reference range was not used to interpret this result as normal/abnormal . CO2 (test code = 25 See_Comment Testing Per formed 2028-02) at [facility], [address] [place] [address], [address], [place] [address] [Automated mess age] The system WHMSOFT generated this result transmit lakhwinder reference range : 22 - 29 mEq/L. The reference range was not used to interpret this result as normal/abnormal . Anion Gap (test 11 See_Comment Testing Perf ormed code = 17564-6) at [facility], [facility], [address], [place], [place] [address] [Automated mess age] The system WHMSOFT generated this result transmit lakhwinder reference range : 4 - 14 mEq/L. The reference range was not used to interpret this result as normal/abnormal . PAIGE (test code = Schedule same day PAIGE) [facility] [id number] 14:14:05 Test Item Value Reference Range Interpretation Comments Albumin Lvl (test 4.0 See_Comment Testing Pe rformed at code = 1751-7) [facility] Ambul atory [facility], [address] [place] [address], [address], [place] [phone] [Automate d message] The sy stem which generated this result transmit lakhwinder reference range : 3.5 - 5.2 gm/dL. Th e reference range was not used to interpret this result as normal/abnormal . PAIGE (test code = Schedule same day PAIGE) tests[facility] [id number] 14:14:05 Test Item Value Reference Range Interpretation Comments Albumin Lvl (test 4.0 See_Comment Testing Pe rformed at code = 1751-7) [facility] Ambul atory Care [facility]ld[facility], [address], [address], [place] [phone] [Automate d message] The sy stem which generated this result transmit lakhwinder reference range : 3.5 - 5.2 gm/dL. Th e reference range was not used to interpret this result as normal/abnormal . PAIGE (test code = Schedule same day PAIGE) tests[facility] [id number] 14:14:05 Test Item Value Reference Range Interpretation Comments Albumin Lvl (test 4.0 See_Comment Testing Pe rformed at code = 1751-7) [facility] Ambul atory Care Bldg, [address], [address], [place] [phone] [Automate d message] The sy stem which generated this result transmit lakhwinder reference range : 3.5 - 5.2 gm/dL. Th e reference range was not used to interpret this result as normal/abnormal . PAIGE (test code = Schedule same day PAIGE) tests[facility]inic [facility] [id number] 14:14:05 Test Item Value Reference Range Interpretation Comments Albumin Lvl (test 4.0 See_Comment Testing Pe rformed at code = 1751-7) [facility] Ambul atory Care Bldg, [address], [address], [place] [phone] [Automate d message] The sy stem which generated this result transmit lakhwinder reference range : 3.5 - 5.2 gm/dL. Th e reference range was not used to interpret this result as normal/abnormal . PAIGE (test code = Schedule same day PAIGE) [facility] [id number] 14:14:05 Test Item Value Reference Range Interpretation Comments Albumin Lvl (test 4.0 See_Comment Testing Pe rformed at code = 1751-7) [facility] Ambul atory Care Bldg, [address], [address], [place] [phone] [Automate d message] The sy stem which generated this result transmit lakhwinder reference range : 3.5 - 5.2 gm/dL. Th e reference range was not used to interpret this result as normal/abnormal . PAIGE (test code = Schedule same day PAIGE) tests[facility] 2022-09-13 14:14:04 Test Item Value Reference Range Interpretation Comments AST (test code 12 U/L <=40 Testing Perfo rmed at = 1920-8) [facility] Ambulat ory Care [facility]ld[facility], [address], [address], [place] [phone] PAIGE (test code Schedule same day = PAIGE) tests[facility]inic [facility] Amin[facility] 2022-09-13 14:14:04 Test Item Value Reference Range Interpretation Comments AST (test code 12 U/L <=40 Testing Perfo rmed at = 1920-8) [facility] Amb[facility], [address], [address], [place] [address] PAIGE (test code Schedule same day = PAIGE) tests[facility]inic [facility] Amin[facility] 2022-09-13 14:14:04 Test Item Value Reference Range Interpretation Comments AST (test code 12 U/L <=40 Testing Perfo rmed at = 1920-8) [facility] Amb[facility] Care [facility], [address], [address], [place] [address] PAIGE (test code Schedule same day = PAIGE) tests[facility] 2022-09-13 14:14:04 Test Item Value Reference Range Interpretation Comments AST (test code 12 U/L <=40 Testing Perfo rmed at = 1920-8) [facility], [address], [address], [place] [address] PAIGE (test code Schedule same day = PAIGE) tests[facility]inic [facility] 2022-09-13 14:14:04 Test Item Value Reference Range Interpretation Comments AST (test code 12 U/L <=40 Testing Perfo rmed at = 1920-8) [facility] Ambul[facility]y Care [facility], [address], [address], [place] [address] PAIGE (test code Schedule same day = PAIGE) tests[facility]inic [facility] 14:14:03 Test Item Value Reference Range Interpretation Comments ALT (test code 7 U/L <=41 Testing Perfo rmed at = 1742-6) [facility], [address], [address], [place] [address] PAIGE (test code Schedule same day = PAIGE) [facility] 14:14[facility]03 Test Item Value Reference Range Interpretation Comments ALT (test code 7 U/L <=41 Testing Perfo rmed at = 1742-6) [facility] Ambulat ory Care [facility]ld[facility], [address], [address], [place] [address] PAIGE (test code Schedule same day = PAIGE) tests/clinic [place] [id number] 14:14:03 Test Item Value Reference Range Interpretation Comments ALT (test code 7 U/L <=41 Testing Perfo rmed at = 1742-6) [facility] Ambul[facility]y Care [facility]ld[facility], [address], [address], [place] [address] PAIGE (test code Schedule same day = PAIGE) [facility] 14:14:03 Test Item Value Reference Range Interpretation Comments ALT (test code 7 U/L <=41 Testing Perfo rmed at = 1742-6) [facility] Ambul[facility]y Care [facility], [address], [address], [place] [address] PAIGE (test code Schedule same day = PAIGE) [facility] 14:14:03 Test Item Value Reference Range Interpretation Comments ALT (test code 7 U/L <=41 Testing Perfo rmed at = 1742-6) [facility] Ambul[facility]y Care [facility]ld[facility], [address], [address], [place] [address] PAIGE (test code Schedule same day = PAIGE) tests/clinic [facility].Serum [id number] 14:14:01 Test Item Value Reference Range Interpretation Comments Creatinine (test code 0.62 mg/dL 0.67-1.17 L Testin g Performed = 2160-0) at [facility], [address] [facility] [facility], [address], [place] [address] PAIGE (test code = PAIGE) Schedule same day tests/clinic appt Lab Interpretation Abnormal (test code = 86424-8) [facility].Serum [id number] 14:14:01 Test Item Value Reference Range Interpretation Comments Creatinine (test code 0.62 mg/dL 0.67-1.17 L Testin g Performed = 2160-0) at [facility], [address], [address], [place] [address] PAIGE (test code = PAIGE) Schedule same day tests/clinic appt Lab Interpretation Abnormal (test code = 66193-6) [facility].Serum Dyoggcphzg4874-10-19 14:14:01 Test Item Value Reference Range Interpretation Comments Creatinine (test code 0.62 mg/dL 0.67-1.17 L Testin g Performed = 2160-0) at [facility], [address], [address], [place] [address] PAIGE (test code = PAIGE) Schedule same day tests/clinic appt Lab Interpretation Abnormal (test code = 52270-4) [facility].Serum [id number] 14:14:01 Test Item Value Reference Range Interpretation Comments Creatinine (test code 0.62 mg/dL 0.67-1.17 L Testin g Performed = 2160-0) at [facility], [address], [address], [place] [address] PAIGE (test code = PAIGE) Schedule same day tests/clinic appt Lab Interpretation Abnormal (test code = 84886-9) [facility].Serum Wmlrwezilp0962-41-97 14:14:01 Test Item Value Reference Range Interpretation Comments Creatinine (test code 0.62 mg/dL 0.67-1.17 L Testin g Performed = 2160-0) at [facility], [address] [facility] [address], [place] [address] PAIGE (test code = PAIGE) Schedule same day tests/clinic appt Lab Interpretation Abnormal (test code = 26952-3) [facility] 14:14:00 Test Item Value Reference Range Interpretation Comments BUN (test code 10 mg/dL 6-23 Testing Perfo rmed at = 3094-0) [facility] Ambulat ory Care Bldg, [address], [address], [place] [phone] PAIGE (test code Schedule same day = PAIGE) [facility] 14:14:00 Test Item Value Reference Range Interpretation Comments BUN (test code 10 mg/dL 6-23 Testing Perfo rmed at = 3094-0) [facility] Ambulat ory Care Bldg, [address], [address], [place] [address] PAIGE (test code Schedule same day = PAIGE) [facility] 14:14:00 Test Item Value Reference Range Interpretation Comments BUN (test code 10 mg/dL 6-23 Testing Perfo rmed at = 3094-0) [facility] Ambulat ory Care Bldg, [address], [address], [place] [address] PAIGE (test code Schedule same day = PAIGE) [facility] 14:14:00 Test Item Value Reference Range Interpretation Comments BUN (test code 10 mg/dL 6-23 Testing Perfo rmed at = 3094-0) [facility] Ambul[facility]y Care [facility]ld[facility], [address], [address], [place] [address] PAIGE (test code Schedule same day = PAIGE) [facility] 14:14:00 Test Item Value Reference Range Interpretation Comments BUN (test code 10 mg/dL 6-23 Testing Perfo rmed at = 3094-0) [facility] Ambul[facility]y Care [facility]ldg, [address], [address], [place] [address] PAIGE (test code Schedule same day = PAIGE) tests[facility]inic [facility] [id number] 14:13:59 Test Item Value Reference Range Interpretation Comments Glucose Level (test 102 mg/dL 70-99 H Effectiv e 01/24/16, code = 2345-7) the glucose reference intervals have been updated ba sed on [place] [employer] guidelines (Standards of Medical Care in Diabetes 2016. Diabetes Care 2016; 39: S13-S22).Fastin g blood glucose:Normal: 70-99 mg/dLImpaired fasting glucose (increased risk for diabetes or pre-diabetes): 100-125 mg/dLDiabetes mellitus: >/=12 6 mg/dL Random bl ood glucose:Normal: 70-199 mg/dLNot e: Random glucose >100 mg/dL is associated with increased risk for diabetes Testin g Performed at [facility] Lab Litigation Claim Representative [facility], [address], [address], [place] [address] PAIGE (test code = PAIGE) Schedule same day tests/clinic appt Lab Interpretation Abnormal (test code = 66081-1) [facility] [id number] 14:13:59 Test Item Value Reference Range Interpretation Comments Glucose Level (test 102 mg/dL 70-99 H Effectiv e 01/24/16, code = 2345-7) the glucose reference intervals have been updated ba sed on [place] [employer] guidelines (Standards of Medical Care in Diabetes 2016. Diabetes Care 2016; 39: S13-S22).Fastin g blood glucose:Normal: 70-99 mg/dLImpaired fasting glucose (increased risk for diabetes or pre-diabetes): 100-125 mg/dLDiabetes mellitus: >/=12 6 mg/dL Random bl ood glucose:Normal: 70-199 mg/dLNot e: Random glucose >100 mg/dL is associated with increased risk for diabetes Testin g Performed at [facility] Litigation Claim Representative [facility], [address], [address], [place] [address] PAIGE (test code = PAIGE) Schedule same day tests/clinic appt Lab Interpretation Abnormal (test code = 64365-4) [facility] [id number] 14:13:59 Test Item Value Reference Range Interpretation Comments Glucose Level (test 102 mg/dL 70-99 H Effectiv e 01/24/16, code = 2345-7) the glucose reference intervals have been updated ba sed on [place] [employer] guidelines (Standards of Medical Care in Diabetes 2016. Diabetes Care 2016; 39: S13-S22).Fastin g blood glucose:Normal: 70-99 mg/dLImpaired fasting glucose (increased risk for diabetes or pre-diabetes): 100-125 mg/dLDiabetes mellitus: >/=12 6 mg/dL Random bl ood glucose:Normal: 70-199 mg/dLNot e: Random glucose >100 mg/dL is associated with increased risk for diabetes Testin g Performed at [facility] Litigation Claim Representative Bldg, [facility], [address], [facility] [place] [address] PAIGE (test code = PAIGE) Schedule same day tests/clinic appt Lab Interpretation Abnormal (test code = 29294-2) [facility] [id number] 14:13:59 Test Item Value Reference Range Interpretation Comments Glucose Level (test 102 mg/dL 70-99 H Effectiv e 01/24/16, code = 2345-7) the glucose reference intervals have been updated ba sed on [place] [employer] guidelines (Standards of Medical Care in Diabetes 2016. Diabetes Care 2016; 39: S13-S22).Fastin g blood glucose:Normal: 70-99 mg/dLImpaired fasting glucose (increased risk for diabetes or pre-diabetes): 100-125 mg/dLDiabetes mellitus: >/=12 6 mg/dL Random bl ood glucose:Normal: 70-199 mg/dLNot e: Random glucose >100 mg/dL is associated with increased risk for diabetes Testin g Performed at [facility], [facility], [address], [place] [address] PAIGE (test code = PAIGE) Schedule same day tests/clinic appt Lab Interpretation Abnormal (test code = 15461-0) [facility] [id number] 14:13:59 Test Item Value Reference Range Interpretation Comments Glucose Level (test 102 mg/dL 70-99 H Effectiv e 01/24/16, code = 2345-7) the glucose reference intervals have been updated ba sed on [place] [employer] guidelines (Standards of Medical Care in Diabetes 2016. Diabetes Care 2016; 39: S13-S22).Fastin g blood glucose:Normal: 70-99 mg/dLImpaired fasting glucose (increased risk for diabetes or pre-diabetes): 100-125 mg/dLDiabetes mellitus: >/=12 6 mg/dL Random bl ood glucose:Normal: 70-199 mg/dLNot e: Random glucose >100 mg/dL is associated with increased risk for diabetes Testin g Performed at B Lab Litigation Claim Representative Bldg, [address] [facility], [address], [place] [address] PAIGE (test code = PAIGE) Schedule same day tests/clinic appt Lab Interpretation Abnormal (test code = 17139-9) [facility] [id number] 13:41:08 Test Item Value Reference Range Interpretation Comments POC Crea (test 0.6 mg/dL 0.6-1.3 Medications, code = 33607-9) especially h ydroxyurea or supplements, such as ascorbate, c an interfere with test results causing a falsely and significantly h igher result than exp ected. If a problem is suspected with a patient's resul t, a sample should b e sent to the [facility] for confirmatory te sting. Method descript ion: [...] 106 See_Comment The eGFRcr is code = 60952) calculated wit h the 2020 CKD-EPI creatinine equa tion using creatinin e, patient's age, and sex for adults 18 y ears of age and older. Other factors, especi ally muscle mass, ma y affect accuracy and need to be considered.Acco rding to the Kidney D isease: Improving Globa l Outcomes (KDIGO ) CKD Work Group 2012 Clinical Practi ce Guideline, nut chopper henrry kidney disease (CKD) is defined as [...] Yes (test code = 6672) Performing Lab [facility] (test code = [facility] [place] [address]) Clinical Lab, [address] [place] [address], [place], [place] [address]; Maintenance Services Dispatcher: Aletha Arciniega MD; Waived Point of Care Testing - Rosina real MD [facility] Vylrxjjjea7408-92-08 13:41:08 Test Item Value Reference Range Interpretation Comments POC Crea (test 0.6 mg/dL 0.6-1.3 Medications, code = 55954-9) especially h ydroxyurea or supplements, such as [...] 106 See_Comment The eGFRcr is code = 05104) calculated wit h the 2020 CKD-EPI creatinine equa tion using creatinin e, patient's age, and sex for adults 18 y ears of age and older. Other factors, especi ally muscle mass, ma y affect accuracy and need to be considered.Acco rding to the Kidney D isease: Improving Globa l Outcomes (KDIGO ) CKD Work Group 2012 Clinical Practi ce Guideline, nut chopper henrry kidney disease (CKD) is defined as [...] Yes (test code = 6672) Performing Lab [facility] (test code = [facility] [address]) Clinical Lab, [address] [place] [address], [place], [place] [address]; Maintenance Services Dispatcher: Aletha Arciniega MD; Waived Point of Care Testing - Rosina real MD [facility] Funfekrqwu1440-23-82 13:41:08 Test Item Value Reference Range Interpretation Comments POC Crea (test 0.6 mg/dL 0.6-1.3 Medications, code = 56620-3) especially h ydroxyurea or supplements, such as [...] 106 See_Comment The eGFRcr is code = 19956) calculated wit h the 2020 CKD-EPI creatinine equa tion using creatinin e, patient's age, and sex for adults 18 y ears of age and older. Other factors, especi ally muscle mass, ma y affect accuracy and need to be considered.Acco rding to the Kidney D isease: Improving Globa l Outcomes (KDIGO ) CKD Work Group 2012 Clinical Practi ce Guideline, nut chopper henrry kidney disease (CKD) is defined as [...] code = 6672) Performing Lab [facility] (test code = [facility] [place] [address]) Clinical Lab, [address], [place], [place] [address]; Maintenance Services Dispatcher: Aletha Arciniega MD; Waived Point of Care Testing - Rosina real MD [facility] [id number] 13:41:08 Test Item Value Reference Range Interpretation Comments POC Crea (test 0.6 mg/dL 0.6-1.3 Medications, code = 29428-4) especially h ydroxyurea or supplements, such as [...] 106 See_Comment The eGFRcr is code = 57356) calculated wit h the 2020 CKD-EPI creatinine equa tion using creatinin e, patient's age, and sex for adults 18 y ears of age and older. Other factors, especi ally muscle mass, ma y affect accuracy and need to be considered.Acco rding to the Kidney D isease: Improving Globa l Outcomes (KDIGO ) CKD Work Group 2012 Clinical Practi ce Guideline, nut chopper henrry kidney disease (CKD) is defined as [...] Yes (test code = 6672) Performing Lab [facility] (test code = [facility] [address]) Clinical Lab, [address] [facility], [place], [place] [address]; Maintenance Services Dispatcher: Aletha Arciniega MD; Waived Point of Care Testing - Rosina real MD [facility] [id number] 13:41:08 Test Item Value Reference Range Interpretation Comments POC Crea (test 0.6 mg/dL 0.6-1.3 Medications, code = 38660-8) especially h ydroxyurea or supplements, such as [...] 106 See_Comment The eGFRcr is code = 02450) calculated wit h the 2020 CKD-EPI creatinine equa tion using creatinin e, patient's age, and sex for adults 18 y ears of age and older. Other factors, especi ally muscle mass, ma y affect accuracy and need to be considered.Acco rding to the Kidney D isease: Improving Globa l Outcomes (KDIGO ) CKD Work Group 2012 Clinical Practi ce Guideline, nut chopper henrry kidney disease (CKD) is defined as [...] Yes (test code = 6672) Performing Lab [facility] ([facility] [address]) Clinical Lab, [address] [facility], [place], [place] [address]; Maintenance Services Dispatcher: Aletha Arciniega MD; Waived Point of Care Testing - Rosina real MD [facility] MD [facility] PyikodBfevgbhsnzuq0614-12-16 13:32:19 Test Item Value Reference Range Interpretation Comments Neutrophil % (test 48.8 % 42.0-66.0 As part o f code = 770-8) Differential performed at B Lab Litigation Claim Representative Bldg, [address] [facility], [address], [place], [place] [address] Lymphocyte % (test 34.8 % 24.0-44.0 code = 736-9) Monocyte % (test code 9.1 % 2.0-7.0 H = 5905-5) Eosinophil % (test 6.6 % 1.0-4.0 H code = 713-8) Basophil % (test code 0.7 % 0.0-1.0 = 706-2) IGRE % (test code = 0.0 % 0.0-0.4 IGRE % c ount 39263-5) includes Metamyelocytes, Myelocytes, and Promyelocytes. As part of Differential performed at [facility] [facility], [address], [place] [address] Neutrophil Abs (test 3.37 K/uL 1.70-7.30 code = 751-8) Lymphocyte Abs (test 2.41 K/uL 1.00-4.80 code = 731-0) Monocyte Abs (test 0.63 K/uL 0.08-0.70 code = 742-7) Eosinophil Abs (test 0.46 K/uL 0.04-0.40 H code = 711-2) Basophil Abs (test 0.05 K/uL 0.00-0.10 code = 704-7) IG Abs (test code = 0.00 K/uL 0.00-0.04 57851-2) PAIGE (test code = PAIGE) Schedule same day tests/clinic appt Lab Interpretation Abnormal (test code = 56997-4) [facility] IwuwmkDpifmejtlvzk1434-38-44 13:32:19 Test Item Value Reference Range Interpretation Comments Neutrophil % (test 48.8 % 42.0-66.0 As part o f code = 770-8) Differential performed at [facility], [address] [facility], [address], [place], [place] [address] Lymphocyte % (test 34.8 % 24.0-44.0 code = 736-9) Monocyte % (test code 9.1 % 2.0-7.0 H = 5905-5) Eosinophil % (test 6.6 % 1.0-4.0 H code = 713-8) Basophil % (test code 0.7 % 0.0-1.0 = 706-2) IGRE % (test code = 0.0 % 0.0-0.4 IGRE % c ount 44718-3) includes Metamyelocytes, Myelocytes, and Promyelocytes. As part of Differential performed at [facility], [address] [facility], [address], [place] [address] Neutrophil Abs (test 3.37 K/uL 1.70-7.30 code = 751-8) Lymphocyte Abs (test 2.41 K/uL 1.00-4.80 code = 731-0) Monocyte Abs (test 0.63 K/uL 0.08-0.70 code = 742-7) Eosinophil Abs (test 0.46 K/uL 0.04-0.40 H code = 711-2) Basophil Abs (test 0.05 K/uL 0.00-0.10 code = 704-7) IG Abs (test code = 0.00 K/uL 0.00-0.04 64229-6) PAIGE (test code = PAIGE) Schedule same day tests/clinic appt Lab Interpretation Abnormal (test code = 35105-4) [facility] JrkdipDevfggddvpfx5843-56-33 13:32:19 Test Item Value Reference Range Interpretation Comments Neutrophil % (test 48.8 % 42.0-66.0 As part o f code = 770-8) Differential performed at [facility], [address] [facility], [address], [place], [place] [address] Lymphocyte % (test 34.8 % 24.0-44.0 code = 736-9) Monocyte % (test code 9.1 % 2.0-7.0 H = 5905-5) Eosinophil % (test 6.6 % 1.0-4.0 H code = 713-8) Basophil % (test code 0.7 % 0.0-1.0 = 706-2) IGRE % (test code = 0.0 % 0.0-0.4 IGRE % c ount 78860-1) includes Metamyelocytes, Myelocytes, and Promyelocytes. As part of Differential performed at [facility], [address] [facility], [address], [place] [address] Neutrophil Abs (test 3.37 K/uL 1.70-7.30 code = 751-8) Lymphocyte Abs (test 2.41 K/uL 1.00-4.80 code = 731-0) Monocyte Abs (test 0.63 K/uL 0.08-0.70 code = 742-7) Eosinophil Abs (test 0.46 K/uL 0.04-0.40 H code = 711-2) Basophil Abs (test 0.05 K/uL 0.00-0.10 code = 704-7) IG Abs (test code = 0.00 K/uL 0.00-0.04 56759-0) PAIGE (test code = PAIGE) Schedule same day tests/clinic appt Lab Interpretation Abnormal (test code = 72490-6) [facility] 13:32:19 Test Item Value Reference Range Interpretation Comments Neutrophil % (test 48.8 % 42.0-66.0 As part o f code = 770-8) Differential performed at [facility], [address] [facility], [address], [place], [place] [address] Lymphocyte % (test 34.8 % 24.0-44.0 code = 736-9) Monocyte % (test code 9.1 % 2.0-7.0 H = 5905-5) Eosinophil % (test 6.6 % 1.0-4.0 H code = 713-8) Basophil % (test code 0.7 % 0.0-1.0 = 706-2) IGRE % (test code = 0.0 % 0.0-0.4 IGRE % c ount 23453-1) includes Metamyelocytes, Myelocytes, and Promyelocytes. As part of Differential performed at [facility], [address] [facility], [address], [place] [address] Neutrophil Abs (test 3.37 K/uL 1.70-7.30 code = 751-8) Lymphocyte Abs (test 2.41 K/uL 1.00-4.80 code = 731-0) Monocyte Abs (test 0.63 K/uL 0.08-0.70 code = 742-7) Eosinophil Abs (test 0.46 K/uL 0.04-0.40 H code = 711-2) Basophil Abs (test 0.05 K/uL 0.00-0.10 code = 704-7) IG Abs (test code = 0.00 K/uL 0.00-0.04 52241-7) PAIGE (test code = PAIGE) Schedule same day tests/clinic appt Lab Interpretation Abnormal (test code = 73264-1) [facility] 13:32:19 Test Item Value Reference Range Interpretation Comments Neutrophil % (test 48.8 % 42.0-66.0 As part o f code = 770-8) Differential performed at [facility], [address] [facility], [address], [place] [address] Lymphocyte % (test 34.8 % 24.0-44.0 code = 736-9) Monocyte % (test code 9.1 % 2.0-7.0 H = 5905-5) Eosinophil % (test 6.6 % 1.0-4.0 H code = 713-8) Basophil % (test code 0.7 % 0.0-1.0 = 706-2) IGRE % (test code = 0.0 % 0.0-0.4 IGRE % c ount 38318-7) includes Metamyelocytes, Myelocytes, and Promyelocytes. As part of Differential performed at [facility], [address] [facility], [address], [place] [address] Neutrophil Abs (test 3.37 K/uL 1.70-7.30 code = 751-8) Lymphocyte Abs (test 2.41 K/uL 1.00-4.80 code = 731-0) Monocyte Abs (test 0.63 K/uL 0.08-0.70 code = 742-7) Eosinophil Abs (test 0.46 K/uL 0.04-0.40 H code = 711-2) Basophil Abs (test 0.05 K/uL 0.00-0.10 code = 704-7) IG Abs (test code = 0.00 K/uL 0.00-0.04 06395-9) PAIGE (test code = PAIGE) Schedule same day tests/clinic appt Lab Interpretation Abnormal (test code = 88090-5) [facility] [place].[id number] 13:32:09 Test Item Value Reference Range Interpretation [...] individua l orderable testi ng performed at [facility], [facility], [address], [place], [place] [address] [Automated mess age] The system whic h generated this result transmit lakhwinder reference range : 14.0 - 18.0 gm/ dL. The reference r jose was not used to interpret this result as normal/abnormal . Hct (test code = 45.2 % 40.0-54.0 As part of CBC or 4544-3) as an individua l orderable testi ng performed at [facility], [address] [facility], [address], [place], [place] [address] MCV (test code = [...] (test code = 62.4 fL 35.1-46.3 H 06003-4) RDW-CV (test code = 17.9 % 12.0-15.5 H 788-0) Platelet count (test 310 K/uL 140-440 As part of CBC or code = 777-3) as an individu al orderable testi ng performed at [facility], [address] [facility], [address], [place], [place] [address] MPV (test code = 9.6 fL 4.0-10.4 43565-3) INRBC (test code = 0.0 % <=0.0 The INRBC 14587-2) (instrument NRB C) value reflects the enumerationof nucleated red b lood cells contained in a 200uL sampleo f whole blood analyzed by the instrument. Thi s value maydiffer from the NRBC v alue reported in a manual differential,wh ich is based on a 1 00 cell differenti al. As part of CBC testing perform ed at [facility] [facility], [address], [place], [place] [address] PAIGE (test code = PAIGE) Schedule same day tests/clinic appt Lab Interpretation Abnormal (test code = 57577-5) [facility] [place].[id number] 13:32:09 Test Item Value Reference Range Interpretation [...] individua l orderable testi ng performed at [facility], [address] [place] [address], [address], [place], [place] [address] [Automated mess age] The system [employer] h generated this result transmit lakhwinder reference range : 14.0 - 18.0 gm/ dL. The reference r jose was not used to interpret this result as normal/abnormal . Hct (test code = 45.2 % 40.0-54.0 As part of CBC or 4544-3) as an individua l orderable testi ng performed at [facility], [address] [place] [address], [address], [place] [address] MCV (test code = [...] (test code = 62.4 fL 35.1-46.3 H 30650-0) RDW-CV (test code = 17.9 % 12.0-15.5 H 788-0) Platelet count (test 310 K/uL 140-440 As part of CBC or code = 777-3) as an individu al orderable testi ng performed at [facility] Litigation Claim Representative Bldg, [address] [facility], [address], [place], [place] [address] MPV (test code = 9.6 fL 4.0-10.4 93008-7) INRBC (test code = 0.0 % <=0.0 The INRBC 37819-9) (instrument NRB C) value reflects the enumerationof nucleated red b lood cells contained in a 200uL sampleo f whole blood analyzed by the instrument. Thi s value maydiffer from the NRBC v alue reported in a manual differential,wh ich is based on a 1 00 cell differenti al. As part of CBC testing perform ed at [facility] Care [address] [facility], [address], [place], [place] [address] PAIGE (test code = PAIGE) Schedule same day tests/clinic appt Lab Interpretation Abnormal (test code = 66984-8) [facility] [place].[id number] 13:32:09 Test Item Value Reference Range Interpretation [...] individua l orderable testi ng performed at [facility], [address] [facility], [address], [place], [place] [address] [Automated mess age] The system [employer] h generated this result transmit lakhwinder reference range : 14.0 - 18.0 gm/ dL. The reference r jose was not used to interpret this result as normal/abnormal . Hct (test code = 45.2 % 40.0-54.0 As part of CBC or 4544-3) as an individua l orderable testi ng performed at [facility], [address] [facility], [address], [place] [address] MCV (test code = [...] (test code = 62.4 fL 35.1-46.3 H 71250-2) RDW-CV (test code = 17.9 % 12.0-15.5 H 788-0) Platelet count (test 310 K/uL 140-440 As part of CBC or code = 777-3) as an individu al orderable testi ng performed at [facility] Lab Litigation Claim Representative [facility], [address] [facility], [address], [place] [address] MPV (test code = 9.6 fL 4.0-10.4 21383-2) INRBC (test code = 0.0 % <=0.0 The INRBC 45054-7) (instrument NRB C) value reflects the enumerationof nucleated red b lood cells contained in a 200uL sampleo f whole blood analyzed by the instrument. Thi s value maydiffer from the NRBC v alue reported in a manual differential,wh ich is based on a 1 00 cell differenti al. As part of CBC testing perform ed at [facility] Lab Litigation Claim Representative [id number] [facility], [address], [place], [place] [address] PAIGE (test code = PAIGE) Schedule same day tests/clinic appt Lab Interpretation Abnormal (test code = 30199-9) [facility] [place].[id number] 13:32:09 Test Item Value Reference Range Interpretation [...] individua l orderable testi ng performed at [facility] Litigation Claim Representative Bldg, [address] [facility], [address], [place], [place] [address] [Automated mess age] The system whic h generated this result transmit lakhwinder reference range : 14.0 - 18.0 gm/ dL. The reference r jose was not used to interpret this result as normal/abnormal . Hct (test code = 45.2 % 40.0-54.0 As part of CBC or 4544-3) as an individua l orderable testi ng performed at [facility], [address] [facility], [address], [place] [address] MCV (test code = [...] (test code = 62.4 fL 35.1-46.3 H 09023-5) RDW-CV (test code = 17.9 % 12.0-15.5 H 788-0) Platelet count (test 310 K/uL 140-440 As part of CBC or code = 777-3) as an individu al orderable testi ng performed at [facility], [address] [facility], [address], [place] [address] MPV (test code = 9.6 fL 4.0-10.4 11842-4) INRBC (test code = 0.0 % <=0.0 The INRBC 32542-4) (instrument NRB C) value reflects the enumerationof nucleated red b lood cells contained in a 200uL sampleo f whole blood analyzed by the instrument. Thi s value maydiffer from the NRBC v alue reported in a manual differential,wh ich is based on a 1 00 cell differenti al. As part of CBC testing perform ed at [facility] Litigation Claim Representative [id number] [facility], [address], [place], [place] [address] PAIGE (test code = PAIGE) Schedule same day tests/clinic appt Lab Interpretation Abnormal (test code = 04171-3) [facility] [place].[id number] 13:32:09 Test Item Value Reference Range Interpretation [...] individua l orderable testi ng performed at [facility], [address] [place] [address], [address], [place] [address] [Automated mess age] The system [employer] h generated this result transmit lakhwinder reference range : 14.0 - 18.0 gm/ dL. The reference r jose was not used to interpret this result as normal/abnormal . Hct (test code = 45.2 % 40.0-54.0 As part of CBC or 4544-3) as an individua l orderable testi ng performed at [facility], [address] [place] [address], [address], [place] [address] MCV (test code = [...] (test code = 62.4 fL 35.1-46.3 H 85544-1) RDW-CV (test code = 17.9 % 12.0-15.5 H 788-0) Platelet count (test 310 K/uL 140-440 As part of CBC or code = 777-3) as an individu al orderable testi ng performed at [facility], [address] [place] [address], [address], [place] [address] MPV (test code = 9.6 fL 4.0-10.4 18825-2) INRBC (test code = 0.0 % <=0.0 The INRBC 05284-3) (instrument NRB C) value reflects the enumerationof nucleated red b lood cells contained in a 200uL sampleo f whole blood analyzed by the instrument. Thi s value maydiffer from the NRBC v alue reported in a manual differential,wh ich is based on a 1 00 cell differenti al. As part of CBC testing perform ed at [facility] Lab Litigation Claim Representative [id number] [facility] [address], [place], [place] [address] PAIGE (test code = PAIGE) Schedule same day tests/clinic appt Lab Interpretation Abnormal (test code = 32858-7) [facility] 17:30:06 Test Item Value Reference Range Interpretation Comments T3 Total (test code = 3053-6) 153 ng/dL 80-[address] 17:30:06 Test Item Value Reference Range Interpretation Comments T3 Total (test code = 3053-6) 153 ng/dL 80-[address] [facility] 17:30:06 Test Item Value Reference Range Interpretation Comments T3 Total (test code = 3053-6) 153 ng/dL 80-[address] [facility] 17:30:06 Test Item Value Reference Range Interpretation Comments T3 Total (test code = 3053-6) 153 ng/dL 80-[address] [facility] 17:30:06 Test Item Value Reference Range Interpretation Comments T3 Total (test code = 3053-6) 153 ng/dL 80-[address] [facility] [facility] 17:30:06 Test Item Value Reference Range Interpretation Comments T3 Total (test code = 3053-6) 153 ng/dL 80-[address] [facility] [facility] 17:30:06 Test Item Value Reference Range Interpretation Comments T3 Total (test code = 3053-6) 153 ng/dL 80-[address] [facility] [facility] 17:30:06 Test Item Value Reference Range Interpretation Comments T3 Total (test code = 3053-6) 153 ng/dL 80-200 [facility] [id number] 16:45:54 Test Item Value Reference Range Interpretation Comments T4 Free (test code 1.01 ng/dL 0.93-1.70 Testing P erformed at [facility] = 3024-7) Lab Litigation Claim Representative [facility], [address], [address], [address] [id number] 16:45:54 Test Item Value Reference Range Interpretation Comments T4 Free (test code 1.01 ng/dL 0.93-1.70 Testing P erformed at [facility] = 3024-7) Lab [facility], [address], [address], [address] [id number] 16:45:54 Test Item Value Reference Range Interpretation Comments T4 Free (test code 1.01 ng/dL 0.93-1.70 Testing P erformed at [facility] = 3024-7) Lab [facility], [address], [address], [address] [id number] 16:45:54 Test Item Value Reference Range Interpretation Comments T4 Free (test code 1.01 ng/dL 0.93-1.70 Testing P erformed at [facility] = 3024-7) Lab [facility], [address], [address], [address] [id number] 16:45:54 Test Item Value Reference Range Interpretation Comments T4 Free (test code 1.01 ng/dL 0.93-1.70 Testing P erformed at [facility] = 3024-7) Lab [facility], [address], [address], [address] [id number] 16:45:54 Test Item Value Reference Range Interpretation Comments T4 Free (test code 1.01 ng/dL 0.93-1.70 Testing P erformed at [facility] = 3024-7) Lab Litigation Claim Representative [facility], [address], [address], [address] [id number] 16:45:54 Test Item Value Reference Range Interpretation Comments T4 Free (test code 1.01 ng/dL 0.93-1.70 Testing P erformed at [facility] = 3024-7) Lab Litigation Claim Representative [facility], [address], [address], [address] [id number] 16:45:54 Test Item Value Reference Range Interpretation Comments T4 Free (test code 1.01 ng/dL 0.93-1.70 Testing P erformed at [facility] = 3024-7) Lab [facility] Center, [address], [address], [address]TSH2022-12-09 16:45:52 Test Item Value Reference Range Interpretation Comments TSH (test code = 0.65 See_Comment Note: New M ethodology and 98489-7) Reference Range change effective 2017 at 1400 Testing Perform ed at [facility] Lab Litigation Claim Representative [facility], [address], [address], [place] [address] [Automated mess age] The system which ge nerated this result transmit lakhwinder reference range : 0.27 - 4.20 mcunit/mL. The reference range was not used to interpr et this result as paras l/abnormal. [facility] 16:45:52 Test Item Value Reference Range Interpretation Comments TSH (test code = 0.65 See_Comment Note: New M ethodology and 34440-1) Reference Range change effective 2017 at 1400 Testing Perform ed at [facility] Lab Litigation Claim Representative dg, [address], [address], [place] [address] [Automated mess age] The system which ge nerated this result transmit lakhwinder reference range : 0.27 - 4.20 mcunit/mL. The reference range was not used to interpr et this result as paras l/abnormal. [facility] 16:45:52 Test Item Value Reference Range Interpretation Comments TSH (test code = 0.65 See_Comment Note: New M ethodology and 99481-4) Reference Range change effective 2017 at 1400 Testing Perform ed at [facility] Litigation Claim Representative [facility], [address], [address], [place] [address] [Automated mess age] The system which ge nerated this result transmit lakhwinder reference range : 0.27 - 4.20 mcunit/mL. The reference range was not used to interpr et this result as paras l/abnormal. [facility] 16:45:52 Test Item Value Reference Range Interpretation Comments TSH (test code = 0.65 See_Comment Note: New Tate ethodology and 41582-9) Reference Range change effective 2017 at 1400 Testing Perform ed at [facility] Litigation Claim Representative [facility], [address], [address], [place] [address] [Automated mess age] The system which ge nerated this result transmit lakhwinder reference range : 0.27 - 4.20 mcunit/mL. The reference range was not used to interpr et this result as paras l/abnormal. [facility] 16:45:52 Test Item Value Reference Range Interpretation Comments TSH (test code = 0.65 See_Comment Note: New Tate ethodology and 22238-5) Reference Range change effective 2017 at 1400 Testing Perform ed at [facility] Litigation Claim Representative [facility], [address], [address], [place] [address] [Automated mess age] The system which ge nerated this result transmit lakhwinder reference range : 0.27 - 4.20 mcunit/mL. The reference range was not used to interpr et this result as paras l/abnormal. [facility] 16:45:52 Test Item Value Reference Range Interpretation Comments TSH (test code = 0.65 See_Comment Note: New M ethodology and 26054-3) Reference Range change effective 2017 at 1400 Testing Perform ed at [facility] Litigation Claim Representative [facility], [address], [address], [place] [address] [Automated mess age] The system which ge nerated this result transmit lakhwinder reference range : 0.27 - 4.20 mcunit/mL. The reference range was not used to interpr et this result as paras l/abnormal. [facility] 16:45:52 Test Item Value Reference Range Interpretation Comments TSH (test code = 0.65 See_Comment Note: New M ethodology and 37075-7) Reference Range change effective 2017 at 1400 Testing Perform ed at [facility] Lab Litigation Claim Representative [facility], [address], [address], [place] [address] [Automated mess age] The system which ge nerated this result transmit lakhwinder reference range : 0.27 - 4.20 mcunit/mL. The reference range was not used to interpr et this result as paras l/abnormal. [facility] 16:45:52 Test Item Value Reference Range Interpretation Comments TSH (test code = 0.65 See_Comment Note: New M ethodology and 34006-5) Reference Range change effective 2017 at 1400 Testing Perform ed at [facility] Litigation Claim Representative [facility], [address], [address], [place] [address] [Automated mess age] The system which ge nerated this result transmit lakhwinder reference range : 0.27 - 4.20 mcunit/mL. The reference range was not used to interpr et this result as paras l/abnormal. [facility] HospitalFractionated [id number] 16:32:38 Test Item Value Reference Range Interpretation [...] concentrations above 28 g/L.Testing Per formed at [facility] Lab Ambulat ory Care [facility], [address], [address], [place] [address] [Automate d message] The system whic h [...] containing indo cyanine green. Testing Performed at [facility] Lab [facility], [address] [place] [address], [address], [place] [address] [Autom ated message] The sy stem which generated this result transmitted ref erence range: <=0.3. T he reference range was not used to interpr et this result as normal/abnormal . Bili Indirect (test See Note 0.0-0.9 Unable t o calculate code = 1970-06) Indirect Bili ruffin result due to some par ameters are outside rep ortable rangeTesting Pe rformed at [facility] Lab [facility], [facility], [address], [place] [address] [facility] PleasantFractionated [id number] 16:32:38 Test Item Value Reference Range Interpretation [...] concentrations above 28 g/L.Testing Per formed at [facility] Lab [facility], [address], [address], [place] [address] Bili Direct (test <=0.3 Indocyanin e Green (ICG) code = 1967-12) may cause fal sely elevated biliru bin results. Total and direct bilirubin must not be measured from s amples containing indo cyanine green. Testing Performed at [facility] Lab [facility], [address] [place] [address], [address], [place] [address] Bili Indirect (test See Note 0.0-0.9 Unable t o calculate code = 1970-06) Indirect Bili ruffin result due to some par ameters are outside rep ortable rangeTesting Pe rformed at [facility] Lab Ambulat ory Care [facility], [address], [place] [address] [facility] HospitalGlomerular Filtration Rate 2022-06-07 16:32:36 Test Item Value Reference Range Interpretation Comments eGFR (test code = 103 See_Comment [place]cr [place] [address]) the 2020 CKD-EP I creatinine equation using [...] a for CKD. Testing Perform ed at [facility] Lab Litigation Claim Representative [facility], [address] [facility], [address], [place], [place] [address] [Automated message] The sy stem which generated this result transmitted ref erence range: >=60 mL/min/1.7 3 sq. m. The reference range was not used to interpret th is result as normal/abnormal . [facility] HospitalGlomerular Filtration Rate 2022-06-07 16:32:36 Test Item Value Reference Range Interpretation Comments eGFR (test code = 103 See_Comment The eGFRcr [place] calculated with [address]) the 2020 CKD-EP I creatinine equation using [...] a for CKD. Testing Perform ed at [facility] Lab Litigation Claim Representative [facility], [address], [address], [place], [place] [address] [Automated message] The sy stem which generated this result transmitted ref erence range: >=60 mL/min/1.7 3 sq. m. The reference range was not used to interpret th is result as normal/abnormal . [facility] HospitalUric [id number] 16:32:35 Test Item Value Reference Range Interpretation Comments Uric Acid (test 5.3 mg/dL 3.4-7.0 Testing Perf ormed at [facility] code = 3084-1) Lab Ambulator y Care [facility], [address], [address], [place] [address] [facility] HospitalUric [id number] 16:32:35 Test Item Value Reference Range Interpretation Comments Uric Acid (test 5.3 mg/dL 3.4-7.0 Testing Perf ormed at [facility] code = 3084-1) Lab Ambulator y Care [facility], [address], [address], [place] [address] [facility] HospitalUric [id number] 16:32:35 Test Item Value Reference Range Interpretation Comments Uric Acid (test 5.3 mg/dL 3.4-7.0 Testing Perf ormed at [facility] code = 3084-1) Lab Ambulator y Care [facility], [address], [address], [place] [address] [facility] HospitalUric [id number] 16:32:35 Test Item Value Reference Range Interpretation Comments Uric Acid (test 5.3 mg/dL 3.4-7.0 Testing Perf ormed at [facility] code = 3084-1) Lab Ambulator y Care Bldg, [address], [address], [place] [address] [facility] HospitalU[facility] [id number] 16:32:35 Test Item Value Reference Range Interpretation Comments Uric Acid (test 5.3 mg/dL 3.4-7.0 Testing Perf ormed at [facility] code = 3084-1) Lab Ambulator y Care Bldg, [address], [address], [place] [address] [facility] HospitalU[facility] [id number] 16:32:35 Test Item Value Reference Range Interpretation Comments Uric Acid (test 5.3 mg/dL 3.4-7.0 Testing Perf ormed at [facility] code = 3084-1) Lab Ambulator y Care Bldg, [address], [address], [place] [address] [facility] HospitalU[facility] [id number] 16:32:35 Test Item Value Reference Range Interpretation Comments Uric Acid (test 5.3 mg/dL 3.4-7.0 Testing Perf ormed at [facility] code = 3084-1) Lab Ambulator y Care Bldg, [address], [address], [place] [address] [facility] HospitalU[facility] [id number] 16:32:35 Test Item Value Reference Range Interpretation Comments Uric Acid (test 5.3 mg/dL 3.4-7.0 Testing Perf ormed at [facility] code = 3084-1) Lab Ambulator y Care Bldg, [address], [address], [place] [address] [facility] HospitalTotal [id number] 16:32:34 Test Item Value Reference Range Interpretation Comments Total Protein (test 7.0 g/dL 6.4-8.3 Testing Performed at [facility] code = 2885-2) Lab Ambulator y Care Bldg, [address], [address], [place] [address] [facility] HospitalTotal [id number] 16:32:34 Test Item Value Reference Range Interpretation Comments Total Protein (test 7.0 g/dL 6.4-8.3 Testing Performed at [facility] code = 2885-2) Lab Ambulator y Care Bldg, [address], [place] [address] [facility] HospitalMagnesium [id number] 16:32:33 Test Item Value Reference Range Interpretation Comments Magnesium (test code = 1.9 mg/dL 1.6-2.6 [place] [address]-6) [facility] Lab Ambulat ory Care [facility], [address] [facility], [address], [place] [address] [facility] HospitalMagnesium [id number] 16:32:33 Test Item Value Reference Range Interpretation Comments Magnesium (test code = 1.9 mg/dL 1.6-2.6 [place] [address]-7) [facility] Lab Ambulat ory Care [facility], [address], [address], [place] [address] [facility] HospitalMagnesium [id number] 16:32:33 Test Item Value Reference Range Interpretation Comments Magnesium (test code = 1.9 mg/dL 1.6-2.6 [place] [address]-3) [facility] Lab Ambulat ory Care [facility], [address], [place] [address] [facility] HospitalMagnesium [id number] 16:32:33 Test Item Value Reference Range Interpretation Comments Magnesium (test code = 1.9 mg/dL 1.6-2.6 [place] [address]-0) [facility] Lab Ambulat ory Care Bldg, [address], [address], [place] [address] [facility] HospitalMagnesium [id number] 16:32:33 Test Item Value Reference Range Interpretation Comments Magnesium (test code = 1.9 mg/dL 1.6-2.6 [place] [address]-5) [facility] Lab Ambulat ory Care dg, [address], [address], [place] [address] [facility] HospitalMagn[facility] [id number] 16:32:33 Test Item Value Reference Range Interpretation Comments Magnesium (test code = 1.9 mg/dL 1.6-2.6 [place] [address]-6) [facility] Lab Ambulat ory Care Bldg, [address], [place] [address] [facility] HospitalMagn[facility] [id number] 16:32:33 Test Item Value Reference Range Interpretation Comments Magnesium (test code = 1.9 mg/dL 1.6-2.6 [place] [address]-7) [facility] Lab Ambulat ory Care dg, [address], [address], [place] [address] [facility] HospitalMagnesium [id number] 16:32:33 Test Item Value Reference Range Interpretation Comments Magnesium (test code = 1.9 mg/dL 1.6-2.6 [place] [address]-4) [facility] Lab [facility]Asc[facility]dg, [address], [address], [place] [address] [facility] HospitalCalcium [id number] 16:32:32 Test Item Value Reference Range Interpretation Comments Calcium Lvl (test 9.3 mg/dL 8.4-10.2 Testing Pe rformed at code = 60715-8) [facility], [address], [address], [place] [address] [facility] HospitalCalcium [id number] 16:32:32 Test Item Value Reference Range Interpretation Comments Calcium Lvl (test 9.3 mg/dL 8.4-10.2 Testing Pe rformed at code = 27213-0) [facility] latM[facility] Hospitaldg, [address], [address], [place] [address] [facility] HospitalAlkaline [id number] 16:32:31 Test Item Value Reference Range Interpretation Comments Alk Phos (test code = 91 U/L 40-129 Testin g Performed at [facility] 6768-6) Lab Litigation Claim Representative [facility], [address], [address], [place] [address] [facility] HospitalAlkaline [id number] 16:32:31 Test Item Value Reference Range Interpretation Comments Alk Phos (test code = 91 U/L 40-129 Testin g Performed at [facility] 6768-6) Lab Litigation Claim Representative [facility], [address], [address], [place] [address] [address] HospitalAlbumin [id number] 16:32:30 Test Item Value Reference Range Interpretation Comments Albumin Lvl (test code 3.8 See_Comment Testi ng Performed at [facility] = 1751-7) Lab Litigation Claim Representative [facility], [address], [address], [place] [address] [Automated mess age] The system which ge nerated this result tra nsmitted reference range : 3.5 - 5.2 gm/dL. The refe rence range was not used to interpret this result as normal/abnormal . [facility] HospitalAlbumin [id number] 16:32:30 Test Item Value Reference Range Interpretation Comments Albumin Lvl (test code 3.8 See_Comment Testi ng Performed at [facility] = 1751-7) Lab Litigation Claim Representative [facility], [address], [address], [place] [address] [Automated mess age] The system which ge nerated this result tra nsmitted reference range : 3.5 - 5.2 gm/dL. The refe rence range was not used to interpret this result as normal/abnormal . [facility] HospitalAspartate Aminotransferase 2022-06-07 16:32:29 Test Item Value Reference Range Interpretation Comments AST (test code = 14 U/L See_Comment Testing Per formed at [facility] 1920-8) Lab Litigation Claim Representative [facility], [address], [address], [place] [address] [Automated mess age] The system which ge nerated this result transmit lakhwinder reference range : <=40. The reference range was not used to interpr et this result as paras l/abnormal. [facility] HospitalAspartate Aminotransferase 2022-06-07 16:32:29 Test Item Value Reference Range Interpretation Comments AST (test code = 14 U/L <=40 Testing Per formed at [facility] 1920-8) Lab Litigation Claim Representative [facility], [address], [address], [place] [address] HospitalALT2022-12-09 16:32:28 Test Item Value Reference Range Interpretation Comments ALT (test code = 6 U/L See_Comment Testing Per formed at [facility] 1742-6) Lab Litigation Claim Representative [facility], [address], [address], [place] [address] [Automated mess age] The system which ge nerated this result transmit lakhwinder reference range : <=41. The reference range was not used to interpr et this result as paras l/abnormal. [facility] HospitalALT2022-12-09 16:32:28 Test Item Value Reference Range Interpretation Comments ALT (test code = 6 U/L <=41 Testing Per formed at [facility] 1742-6) Lab Litigation Claim Representative [facility], [address], [address], [place] [address] HospitalElectrolyte [id number] 16:32:27 Test Item Value Reference Range Interpretation Comments Sodium Lvl (test code = 138 See_Comment Test ing Performed at [facility] 2951-2) Lab Litigation Claim Representative [facility], [address], [address], [place] [address] [Automated mess age] The system which ge nerated this result tra nsmitted reference range : 136 - 145 mEq/L. The reference range was not u sed to interpret this result as normal/abnormal . Potassium Lvl (test 3.8 See_Comment Testing Performed at [facility] code = 2823-3) Lab Ambulator y Care [facility], [address], [address], [place] [address] [Automated mess age] The system which ge nerated this result tra nsmitted reference range : 3.5 - 5.1 mEq/L. The reference range was not u sed to interpret this result as normal/abnormal . Chloride (test code = 103 See_Comment Testin g Performed at [facility] 2075-0) Lab Litigation Claim Representative [facility], [address], [address], [place] [address] [Automated mess age] The system which ge nerated this result tra nsmitted reference range : 98 - 107 mEq/L. The refe rence range was not u sed to interpret this result as normal/abnormal . CO2 (test code = 25 See_Comment Testing Per formed at [facility] 2028-02) Lab Litigation Claim Representative [facility], [address], [address], [place] [address] [Automated mess age] The system which ge nerated this result tra nsmitted reference range : 22 - 29 mEq/L. The refe rence range was not u sed to interpret this result as normal/abnormal . Anion Gap (test code = 10 See_Comment Testi ng Performed at [facility] 06899-5) Lab Litigation Claim Representative [facility], [address], [address], [place] [address] [Automated mess age] The system which ge nerated this result tra nsmitted reference range : 4 - 14 mEq/L. The refe rence range was not u sed to interpret this result as normal/abnormal . [facility]Electrolyte [id number] 16:32:27 Test Item Value Reference Range Interpretation Comments Sodium Lvl (test code = 138 See_Comment Test ing Performed at [facility] 2951-2) Lab Litigation Claim Representative [facility], [address], [address], [place] [address] [Automated mess age] The system which ge nerated this result tra nsmitted reference range : 136 - 145 mEq/L. The reference range was not u sed to interpret this result as normal/abnormal . Potassium Lvl (test 3.8 See_Comment Testing Performed at [facility] code = 2823-3) Lab Ambulator y Care [facility], [address], [address], [place] [address] [Automated mess age] The system which ge nerated this result tra nsmitted reference range : 3.5 - 5.1 mEq/L. The reference range was not u sed to interpret this result as normal/abnormal . Chloride (test code = 103 See_Comment Testin g Performed at [facility] 5-0) Lab Litigation Claim Representative [facility], [address], [address], [place] [address] [Automated mess age] The system which ge nerated this result tra nsmitted reference range : 98 - 107 mEq/L. The refe rence range was not u sed to interpret this result as normal/abnormal . CO2 (test code = 25 See_Comment Testing Per formed at [facility] 2028-02) Lab Litigation Claim Representative [facility], [address], [address], [place] [address] [Automated mess age] The system which ge nerated this result tra nsmitted reference range : 22 - 29 mEq/L. The refe rence range was not u sed to interpret this result as normal/abnormal . Anion Gap (test code = 10 See_Comment Testi ng Performed at [facility] 80677-6) Lab Litigation Claim Representative Bldg, [facility], [place] [address] [Automated mess age] The system which ge nerated this result tra nsmitted reference range : 4 - 14 mEq/L. The refe rence range was not u sed to interpret this result as normal/abnormal . [facility].Serum [id number] 16:32:26 Test Item Value Reference Range Interpretation Comments Creatinine (test code = 0.66 mg/dL 0.67-1.17 L Test ing Performed 2160-0) at [facility] Lab Litigation Claim Representative [facility], [address], [place], [place] [address] Lab Interpretation (test Abnormal code = 73943-0) [facility].Serum [id number] 16:32:26 Test Item Value Reference Range Interpretation Comments Creatinine (test code = 0.66 mg/dL 0.67-1.17 L Test ing Performed 2160-0) at [facility] Lab Litigation Claim Representative [facility], [address], [place] [address] Lab Interpretation (test Abnormal code = 11226-0) [facility] HospitalBUN2022-12-09 16:32:25 Test Item Value Reference Range Interpretation Comments BUN (test code = 3094-0) 5 mg/dL 6-23 L Betty ting Performed at [facility] Lab Ambulat ory Care [facility], [address], [place] [address] Lab Interpretation (test Abnormal code = 99686-7) [facility] HospitalBUN2022-12-09 16:32:25 Test Item Value Reference Range Interpretation Comments BUN (test code = 3094-0) 5 mg/dL 6-23 L Betty ting Performed at [facility] Lab Ambulat ory [facility], [address], [place] [address] Lab Interpretation (test Abnormal code = 10113-2) [facility] HospitalGlucose [id number] 16:32:24 Test Item Value Reference Range Interpretation Comments Glucose Level (test 96 mg/dL 70-99 Effectiv e 01/24/16, the code = 2345-7) glucose refer ence intervals have been updated based o n [employer] octaviano delines (Standards of [...] diabetes Testin g Performed at [facility], [address], [place] [address] [facility] [id number] 16:32:24 Test Item Value Reference Range Interpretation Comments Glucose Level (test 96 mg/dL 70-99 Effectiv e 01/24/16, the code = 2345-7) glucose refer ence intervals have been updated based o n [employer] octaviano delines (Standards of [...] risk for diabetes Testin g Performed at [facility] Lab Litigation Claim Representative [facility], [address], [place] [address] [address] [facility]2022-12-09 16:09:54 Test Item Value Reference Range Interpretation Comments Neutrophil % (test code 53.5 % 42.0-66.0 As p art of = 770-8) Differential performed at [facility] Lab Litigation Claim Representative [facility], [address], [address], [place] [address] Lymphocyte % (test code 38.2 % 24.0-44.0 = 736-9) Monocyte % (test code = 7.0 % 2.0-7.0 5905-5) Eosinophil % (test code 0.7 % 1.0-4.0 L = 713-8) Basophil % (test code = 0.3 % 0.0-1.0 706-2) IGRE % (test code = 0.3 % 0.0-0.4 IGRE % c ount includes 28289-7) Metamyelocytes, Myelocytes, and Promyelocytes. As part of Differe ntial performed at [facility] Litigation Claim Representative [facility], [address], [facility] [place] [address] Neutrophil Abs (test 3.56 K/uL 1.70-7.30 code = 751-8) Lymphocyte Abs (test 2.55 K/uL 1.00-4.80 code = 731-0) Monocyte Abs (test code 0.47 K/uL 0.08-0.70 = 742-7) Eosinophil Abs (test 0.05 K/uL 0.04-0.40 code = 711-2) Basophil Abs (test code 0.02 K/uL 0.00-0.10 = 704-7) IG Abs (test code = 0.02 K/uL 0.00-0.04 98957-9) Lab Interpretation Abnormal (test code = 81594-8) [facility] 16:09:54 Test Item Value Reference Range Interpretation Comments Neutrophil % (test code 53.5 % 42.0-66.0 As p art of = 770-8) Differential performed at [facility] Lab Litigation Claim Representative [facility], [address], [address], [place] [address] Lymphocyte % (test code 38.2 % 24.0-44.0 = 736-9) Monocyte % (test code = 7.0 % 2.0-7.0 5905-5) Eosinophil % (test code 0.7 % 1.0-4.0 L = 713-8) Basophil % (test code = 0.3 % 0.0-1.0 706-2) IGRE % (test code = 0.3 % 0.0-0.4 IGRE % c ount includes 34320-0) Metamyelocytes, Myelocytes, and Promyelocytes. As part of Differe ntial performed at [facility] Litigation Claim Representative [facility], [address], [address], [place] [address] Neutrophil Abs (test 3.56 K/uL 1.70-7.30 code = 751-8) Lymphocyte Abs (test 2.55 K/uL 1.00-4.80 code = 731-0) Monocyte Abs (test code 0.47 K/uL 0.08-0.70 = 742-7) Eosinophil Abs (test 0.05 K/uL 0.04-0.40 code = 711-2) Basophil Abs (test code 0.02 K/uL 0.00-0.10 = 704-7) IG Abs (test code = 0.02 K/uL 0.00-0.04 17082-2) Lab Interpretation Abnormal (test code = 41249-5) [facility] [place].[id number] 16:09:39 Test Item Value Reference Range Interpretation Comments WBC (test code = 6.7 K/uL 4.0-11.0 6690-2) RBC (test code = 789-8) 3.87 See_Comment L [Au tomated message] The system [employer] generated this result transmitted ref erence range: 4.50 - 6 .00 M/uL. The refer ence range was not u sed to interpret this result as normal/abnor mal. Hgb (test code = 718-7) 11.3 See_Comment L As p art of CBC or as an individual orderable testi ng performed at [facility] Litigation Claim Representative [facility], [address], [address], [place] [address] [Automate d message] The sy stem which generated this result transmit lakhwinder reference range : 14.0 - 18.0 gm/dL. T he reference range was not used to int erpret this result as normal/abnormal . Hct (test code = 35.1 % 40.0-54.0 L As part of CBC or as 4544-3) an individual orderable testi ng performed at [facility], [address], [address], [place] [address] MCV (test code = 787-2) 91 fL 82-98 MCH (test code = 785-6) 29.2 pg 27.0-31.0 MCHC (test code = 32.2 See_Comment [Automate d message] 786-4) The system [employer] generated this result transmitted ref erence range: 31.0 - 3 6.0 gm/dL. The refe rence range was not u sed to interpret this result as normal/abnor mal. RDW-SD (test code = 52.4 fL 35.1-46.3 H 65591-9) RDW-CV (test code = 15.8 % 12.0-15.5 H 788-0) Platelet count (test 304 K/uL 140-440 As part of CBC or as code = 777-3) an individual orderable testi ng performed at [facility], [address], [place] [address] MPV (test code = 9.7 fL 4.0-10.4 05808-8) INRBC (test code = 0.0 % See_Comment The INRBC (instrument 58555-2) NRBC) value ref lects the enumeration of nucleated red b lood cells contained in a 200uL sampleof whole blood analyzed by the instrument. Thi s value maydiffer from the NRBC value repo rted in a manual differential,wh ich is based on a 100 cell differential. A s part of CBC testing performed at [facility], [place], [place] [address] [Automated mess age] The system [employer] generated this result transmitted ref erence range: <=0.0. T he reference range was not used to int erpret this result as normal/abnormal . Lab Interpretation Abnormal (test code = 25826-2) [facility] [place].[id number] 16:09:39 Test Item Value Reference Range Interpretation Comments WBC (test code = 6.7 K/uL 4.0-11.0 6690-2) RBC (test code = 789-8) 3.87 See_Comment L [Au tomated message] The system [employer] generated this result transmitted ref erence range: 4.50 - 6 .00 M/uL. The refer ence range was not u sed to interpret this result as normal/abnor mal. Hgb (test code = 718-7) 11.3 See_Comment L As p art of CBC or as an individual orderable testi ng performed at [facility] Lab Litigation Claim Representative [facility], [address], [address], [facility] [place] [address] [Automate d message] The sy stem which generated this result transmit lakhwinder reference range : 14.0 - 18.0 gm/dL. T he reference range was not used to int erpret this result as normal/abnormal . Hct (test code = 35.1 % 40.0-54.0 L As part of CBC or as 4544-3) an individual orderable testi ng performed at [facility] Lab Litigation Claim Representative [facility], [address], [address], [place] [address] MCV (test code = 787-2) 91 fL 82-98 MCH (test code = 785-6) 29.2 pg 27.0-31.0 MCHC (test code = 32.2 See_Comment [Automate d message] 786-4) The system [employer] generated this result transmitted ref erence range: 31.0 - 3 6.0 gm/dL. The refe rence range was not u sed to interpret this result as normal/abnor mal. RDW-SD (test code = 52.4 fL 35.1-46.3 H 07439-4) RDW-CV (test code = 15.8 % 12.0-15.5 H 788-0) Platelet count (test 304 K/uL 140-440 As part of CBC or as code = 777-3) an individual orderable testi ng performed at [facility] Litigation Claim Representative [facility], [address], [place] [address] MPV (test code = 9.7 fL 4.0-10.4 54791-9) INRBC (test code = 0.0 % <=0.0 The INRBC (instrument 83873-9) NRBC) value ref lects the enumeration of nucleated red b lood cells contained in a 200uL sampleof whole blood analyzed by the instrument. Thi s value maydiffer from the NRBC value repo rted in a manual differential,wh ich is based on a 100 cell differential. A s part of CBC testing performed at [facility] Litigation Claim Representative [address], [place] [address] Lab Interpretation Abnormal (test code = 01988-5) [facility] Blood Xktxhca5448-64-64 23:29:29 Test Item Value Reference Range Interpretation Comments Final Report (test No Fungi isolated. code = 8488) Path Review - Culture yield may be Fungus (test code = affected by sample 8479) quality, prior treatment, and transportation conditions.The results have been reviewed and electronically signed by Pathologist:SRUTHI ZABALA MD #[id number] [facility] Moqyiue1371-78-30 23:29:29 Test Item Value Reference Range Interpretation Comments Final Report (test No Fungi isolated. code = 8488) Path Review - Culture yield may be Fungus (test code = affected by sample 8479) quality, prior treatment, and transportation conditions.The results have been reviewed and electronically signed by Pathologist:SRUTHI ZABALA MD #[id number] [facility] Blood Hpmkdbt3409-66-41 23:29:29 Test Item Value Reference Range Interpretation Comments Final Report (test No Fungi isolated. code = 8488) Path Review - Culture yield may be Fungus (test code = affected by sample 8479) quality, prior treatment, and transportation conditions.The results have been reviewed and electronically signed by Pathologist:SRUTHI ZABALA MD #[id number] [facility] Blood [id number] 23:29:29 Test Item Value Reference Range Interpretation Comments Final Report (test No Fungi isolated. code = 8488) Path Review - Culture yield may be Fungus (test code = affected by sample 8479) quality, prior treatment, and transportation conditions.The results have been reviewed and electronically signed by Pathologist:SRUTHI ZABALA MD #[id number] [facility] Blood [id number] 23:29:29 Test Item Value Reference Range Interpretation Comments Final Report (test No Fungi isolated. code = 8488) Path Review - Culture yield may be Fungus (test code = affected by sample 8479) quality, prior treatment, and transportation conditions.The results have been reviewed and electronically signed by Pathologist:SRUTHI ZABALA MD #[id number] [facility] Blood Mrqsgon6773-36-80 23:29:29 Test Item Value Reference Range Interpretation Comments Final Report (test No Fungi isolated. code = 8488) Path Review - Culture yield may be Fungus (test code = affected by sample 8479) quality, prior treatment, and transportation conditions.The results have been reviewed and electronically signed by Pathologist:SRUTHI ZABALA MD #[id number] [facility] Blood [id number] 23:29:29 Test Item Value Reference Range Interpretation Comments Final Report (test No Fungi isolated. code = 8488) Path Review - Culture yield may be Fungus (test code = affected by sample 8479) quality, prior treatment, and transportation conditions.The results have been reviewed and electronically signed by Pathologist:SRUTHI ZABALA MD #[id number] [facility] Obiencc9600-87-11 01:20:36 Test Item Value Reference Range Interpretation Comments Final Report (test No growth code = 8488) Path Review - Culture yield may be Bottle/Isolator affected by sample (test code = 8499) quality, prior treatment, and transportation conditions....The results have been reviewed and electronically signed by Pathologist:Fredy Mercado MD, PhD #[id number] [facility]2022-04-30 01:20:36 Test Item Value Reference Range Interpretation Comments Final Report (test No growth code = 8488) Path Review - Culture yield may be Bottle/Isolator affected by sample (test code = 8499) quality, prior treatment, and transportation conditions....The results have been reviewed and electronically signed by Pathologist:Fredy Mercado MD, PhD #[id number] [facility]2022-04-30 01:20:36 Test Item Value Reference Range Interpretation Comments Final Report (test No growth code = 8488) Path Review - Culture yield may be Bottle/Isolator affected by sample (test code = 8499) quality, prior treatment, and transportation conditions....The results have been reviewed and electronically signed by Pathologist:Fredy Mercado MD, PhD #[id number] [facility]2022-04-30 01:20:36 Test Item Value Reference Range Interpretation Comments Final Report (test No growth code = 8488) Path Review - Culture yield may be Bottle/Isolator affected by sample (test code = 8499) quality, prior treatment, and transportation conditions....The results have been reviewed and electronically signed by Pathologist:Fredy Mercado MD, PhD #[id number] [facility]2022-04-30 01:20:36 Test Item Value Reference Range Interpretation Comments Final Report (test No growth code = 8488) Path Review - Culture yield may be Bottle/Isolator affected by sample (test code = 8499) quality, prior treatment, and transportation conditions....The results have been reviewed and electronically signed by Pathologist:Fredy Mercado MD, PhD #[id number] [facility]2022-04-30 01:20:36 Test Item Value Reference Range Interpretation Comments Final Report (test No growth code = 8488) Path Review - Culture yield may be Bottle/Isolator affected by sample (test code = 8499) quality, prior treatment, and transportation conditions....The results have been reviewed and electronically signed by Pathologist:Fredy Mercado MD, PhD #[id number] [facility]2022-04-30 01:20:36 Test Item Value Reference Range Interpretation Comments Final Report (test No growth code = 8488) Path Review - Culture yield may be Bottle/Isolator affected by sample (test code = 8499) quality, prior treatment, and transportation conditions....The results have been reviewed and electronically signed by Pathologist:Fredy Mercado MD, PhD #[id number] [facility] HjhlneFmpkztbwklze6639-86-23 17:07:36 Test Item Value Reference Range Interpretation Comments Total Cells (test code 100 = 89281-4) Neutrophil % (test code 63.0 % 42.0-66.0 The Neutrophil count = 55953-6) includes Bands. Lymphocyte % (test code 20.0 % 24.0-44.0 L = 737-7) Monocyte % (test code = 9.0 % 2.0-7.0 H 744-3) Eosinophil % (test code 2.0 % 1.0-4.0 = 714-6) Metamyelocyte % (test 6.0 % See_Comment H The Me tamyelocyte code = 740-1) count includes Myelocytes. [Automated mess age] The system [employer] generated this result transmitted ref erence range: <=0.0. T [employer] reference range was not used to int erpret this result as normal/abnormal . NRBC (test code = 1.0 See_Comment H [Automate d message] 87899-3) The system [employer] generated this result transmitted ref erence range: <=0.0. T [employer] reference range was not used to int [...] PLT Morph (test code = Normal Normal 64484-3) Anisocytosis (test code Present Not Present A = 702-1) Poik (test code = Present Not Present A 779-9) Polychromasia (test Present Not Present A code = 78127-7) Ovalocyte (test code = Present Not Present A 774-0) Tear Drop (test code = Present Not Present A 7791-7) Lab Interpretation Abnormal (test code = 82383-3) [facility] NxmrhaOssvcyddykod7467-81-30 17:07:36 Test Item Value Reference Range Interpretation Comments Total Cells (test code 100 = 95701-8) Neutrophil % (test code 63.0 % 42.0-66.0 The Neutrophil count = 93313-8) includes Bands. Lymphocyte % (test code 20.0 % 24.0-44.0 L = 737-7) Monocyte % (test code = 9.0 % 2.0-7.0 H 744-3) Eosinophil % (test code 2.0 % 1.0-4.0 = 714-6) Metamyelocyte % (test 6.0 % See_Comment H The Me tamyelocyte code = 740-1) count includes Myelocytes. [Automated mess age] The system [employer] generated this result transmitted ref erence range: <=0.0. T he reference range was not used to int erpret this result as normal/abnormal . NRBC (test code = 1.0 See_Comment H [Automate d message] 25301-0) The system [employer] generated this result transmitted ref erence range: [...] PLT Morph (test code = Normal Normal 31436-9) Anisocytosis (test code Present Not Present A = 702-1) Poik (test code = Present Not Present A 779-9) Polychromasia (test Present Not Present A code = 50052-8) Ovalocyte (test code = Present Not Present A 774-0) Tear Drop (test code = Present Not Present A 7791-7) Lab Interpretation Abnormal (test code = 08488-3) [facility] NlvrcySwouexpykqob3122-42-83 17:07:36 Test Item Value Reference Range Interpretation Comments Total Cells (test code 100 = 36036-4) Neutrophil % (test code 63.0 % 42.0-66.0 The Neutrophil count = 05593-0) includes Bands. Lymphocyte % (test code 20.0 % 24.0-44.0 L = 737-7) Monocyte % (test code = 9.0 % 2.0-7.0 H 744-3) Eosinophil % (test code 2.0 % 1.0-4.0 = 714-6) Metamyelocyte % (test 6.0 % See_Comment H The Me tamyelocyte code = 740-1) count includes Myelocytes. [Automated mess age] The system [employer] generated this result transmitted ref erence range: <=0.0. T he reference range was not used to int erpret this result as normal/abnormal . NRBC (test code = 1.0 See_Comment H [Automate d message] 38766-2) The system [employer] generated this result transmitted ref erence range: [...] PLT Morph (test code = Normal Normal 53186-2) Anisocytosis (test code Present Not Present A = 702-1) Poik (test code = Present Not Present A 779-9) Polychromasia (test Present Not Present A code = 59496-7) Ovalocyte (test code = Present Not Present A 774-0) Tear Drop (test code = Present Not Present A 7791-7) Lab Interpretation Abnormal (test code = 21445-8) [facility] [place].[id number] 17:07:32 Test Item Value Reference Range Interpretation Comments WBC (test code = 11.5 K/uL 4.0-11.0 H 6690-2) RBC (test code = 789-8) 4.25 See_Comment L [Au tomated message] The system [employer] generated this result transmitted ref erence range: 4.50 - 6 .00 M/uL. The refer ence range was not u sed to interpret this result as normal/abnor mal. Hgb (test code = 718-7) 12.1 See_Comment L [Au tomated message] The system [employer] generated this result transmitted ref erence range: [...] See_Comment [Automate d message] 786-4) The system [employer] generated this result transmitted ref erence range: 31.0 - 3 6.0 gm/dL. The refe rence range was not u sed to interpret this result as normal/abnor mal. RDW-SD (test code = 57.5 fL 35.1-46.3 H 65410-4) RDW-CV (test code = 17.4 % 12.0-15.5 H 788-0) Platelet count (test 313 K/uL 140-440 code = 777-3) MPV (test code = 8.8 fL 4.0-10.4 64595-0) INRBC (test code = 0.2 % See_Comment H The INRBC (instrument 89321-8) NRBC) value ref lects the enumeration of nucleated red b lood cells contained in a 200uL sampleof whole blood analyzed by the instrument. Thi s value maydiffer from the NRBC value reported in a m anual differential,wh ich is based on a 100 cell differential. [Automated mess age] The system [employer] generated this result transmitted ref erence range: <=0.0. T he reference range was not used to int erpret this result as normal/abnormal . Lab Interpretation Abnormal (test code = 36559-1) [facility] [place].[id number] 17:07:32 Test Item Value Reference Range Interpretation Comments WBC (test code = 11.5 K/uL 4.0-11.0 H 6690-2) RBC (test code = 789-8) 4.25 See_Comment L [Au tomated message] The system [employer] generated this result transmitted ref erence range: 4.50 - 6 .00 M/uL. The refer ence range was not u sed to interpret this result as normal/abnor mal. Hgb (test code = 718-7) 12.1 See_Comment L [Au tomated message] The system [employer] generated this result transmitted ref erence range: [...] See_Comment [Automate d message] 786-4) The system [employer] generated this result transmitted ref erence range: 31.0 - 3 6.0 gm/dL. The refe rence range was not u sed to interpret this result as normal/abnor mal. RDW-SD (test code = 57.5 fL 35.1-46.3 H 42387-3) RDW-CV (test code = 17.4 % 12.0-15.5 H 788-0) Platelet count (test 313 K/uL 140-440 code = 777-3) MPV (test code = 8.8 fL 4.0-10.4 07462-7) INRBC (test code = 0.2 % See_Comment H The INRBC (instrument 06664-1) NRBC) value ref lects the enumeration of nucleated red b lood cells contained in a 200uL sampleof whole blood analyzed by the instrument. Thi s value maydiffer from the NRBC value reported in a m anual differential,wh ich is based on a 100 cell differential. [Automated mess age] The system [employer] generated this result transmitted ref erence range: <=0.0. T he reference range was not used to int erpret this result as normal/abnormal . Lab Interpretation Abnormal (test code = 97735-9) [facility] [place].GQM9582-46-19 17:07:32 Test Item Value Reference Range Interpretation Comments WBC (test code = 11.5 K/uL 4.0-11.0 H 6690-2) RBC (test code = 789-8) 4.25 See_Comment L [Au tomated message] The system [employer] generated this result transmitted ref erence range: 4.50 - 6 .00 M/uL. The refer ence range was not u sed to interpret this result as normal/abnor mal. Hgb (test code = 718-7) 12.1 See_Comment L [Au tomated message] The system [employer] generated this result transmitted ref erence range: [...] See_Comment [Automate d message] 786-4) The system [employer] generated this result transmitted ref erence range: 31.0 - 3 6.0 gm/dL. The refe rence range was not u sed to interpret this result as normal/abnor mal. RDW-SD (test code = 57.5 fL 35.1-46.3 H 85674-6) RDW-CV (test code = 17.4 % 12.0-15.5 H 788-0) Platelet count (test 313 K/uL 140-440 code = 777-3) MPV (test code = 8.8 fL 4.0-10.4 52570-4) INRBC (test code = 0.2 % See_Comment H The INRBC (instrument 13778-1) NRBC) value ref lects the enumeration of [...] . Lab Interpretation Abnormal (test code = 74589-1) [facility] Hfeau7762-76-80 11:49:22 Test Item Value Reference Range Interpretation [...] to interpret this result as normal/abnormal . [facility] Ekgzv6945-00-50 11:49:22 Test Item Value Reference Range Interpretation [...] to interpret this result as normal/abnormal . [facility] Zvygs8101-11-39 11:49:22 Test Item Value Reference Range Interpretation [...] to interpret this result as normal/abnormal . [facility] Hospital[facility]ractionated Evmfchkeh5705-69-70 11:49:21 Test Item Value Reference Range Interpretation [...] interpret th is result as normal/abnormal . [facility] Qnzeolfhh2081-65-84 11:49:21 Test Item Value Reference Range Interpretation [...] interpret th is result as normal/abnormal . [facility] Lgvcqxmtp8667-00-27 11:49:21 Test Item Value Reference Range Interpretation [...] interpret th is result as normal/abnormal . [facility] Fil[facility] Rate 2021-10-24 11:49:20 Test Item Value Reference Range Interpretation Comments eGFR-AA (test code 107 See_Comment Normal eG FR: >= 60 = 32386-8) mL/min/1.73 m2N ote: The eGFR is calculated [...] See_Comment Normal e GFR: >= 60 = 47147-1) mL/min/1.73 m2N ote: The eGFR is calculated [...] interpret th is result as normal/abnormal . [facility] Rate 2021-10-24 11:49:20 Test Item Value Reference Range Interpretation Comments eGFR-AA (test code 107 See_Comment Normal eG FR: >= 60 = 96496-3) mL/min/1.73 m2N ote: The eGFR is calculated [...] See_Comment Normal e GFR: >= 60 = 63999-9) mL/min/1.73 m2N ote: The eGFR is calculated [...] Kidney failure <15 [Au tomated message] The [employer] stem which generated this result transmitted ref erence range: >=60 mL/min/1.7 3 sq. m. The reference range was not used to interpret is result as normal/abnormal . [facility] Rate 2021-10-24 11:49:20 Test Item Value Reference Range Interpretation Comments eGFR-AA (test code 107 See_Comment Normal eG FR: >= 60 = 54696-5) mL/min/1.73 m2N ote: The eGFR is calculated [...] See_Comment Normal e GFR: >= 60 = 98018-8) mL/min/1.73 m2N ote: The eGFR is calculated [...] interpret th is result as normal/abnormal . [facility] Nxwgnyv8727-89-40 11:49:19 Test Item Value Reference Range Interpretation Comments Total Protein (test code = 2885-2) 6.3 g/dL 6.4-8.3 L Lab Interpretation (test code = Abnormal 90849-9) [facility] Asvzcpk3633-23-35 11:49:19 Test Item Value Reference Range Interpretation Comments Total Protein (test code = 2885-2) 6.3 g/dL 6.4-8.3 L Lab Interpretation (test code = Abnormal 33505-5) [facility] Llwguud4535-65-67 11:49:19 Test Item Value Reference Range Interpretation Comments Total Protein (test code = 2885-2) 6.3 g/dL 6.4-8.3 L Lab Interpretation (test code = Abnormal 93629-0) [facility] Lynml0752-25-88 11:49:18 Test Item Value Reference Range Interpretation Comments Magnesium (test code = 93102-4) 2.1 mg/dL 1.6-2.[address] Phebx1841-70-23 11:49:18 Test Item Value Reference Range Interpretation Comments Magnesium (test code = 48236-7) 2.1 mg/dL 1.6-2.[address] Bpoej3775-86-01 11:49:18 Test Item Value Reference Range Interpretation Comments Magnesium (test code = 69136-4) 2.1 mg/dL 1.6-2.[address] HospitalAlkaline Dgcuqxjsmdt2358-64-96 11:49:17 Test Item Value Reference Range Interpretation Comments Alk Phos (test code = 6768-6) 59 U/L 40-[address] [facility] HospitalAl[facility] Czijracnqbj0224-89-98 11:49:17 Test Item Value Reference Range Interpretation Comments Alk Phos (test code = 6768-6) 59 U/L 40-[address] [facility] [facility] Ajoznegtwwm6433-36-41 11:49:17 Test Item Value Reference Range Interpretation Comments Alk Phos (test code = 6768-6) 59 U/L 40-[address] HospitalALT2022-04-27 11:49:16 Test Item Value Reference Range Interpretation Comments ALT (test code = 14 U/L See_Comment [Automated message] The 1741-11) system which ge nerated this result transmit lakhwinder reference range : <=41. The reference range was not used to interpr et this result as paras l/abnormal. [place] 26710022-04-27 11:49:16 Test Item Value Reference Range Interpretation Comments ALT (test code = 14 U/L See_Comment [Automated message] The 1741-11) system which ge nerated this result transmit lakhwinder reference range : <=41. The reference range was not used to interpr et this result as paras l/abnormal. [place] 26710022-04-27 11:49:16 Test Item Value Reference Range Interpretation Comments ALT (test code = 14 U/L See_Comment [Automated message] The 1741-11) system which ge nerated this result transmit lakhwinder reference range : <=41. The reference range was not used to interpr et this result as paras l/abnormal. [facility].Serum Oodrcxften4036-39-30 11:49:15 Test Item Value Reference Range Interpretation Comments Creatinine (test code = 2160-0) 0.81 mg/dL 0.67-1.[address] [facility].Serum Ikpqmsnvuj1944-44-22 11:49:15 Test Item Value Reference Range Interpretation Comments Creatinine (test code = 2160-0) 0.81 mg/dL 0.67-1.[address] [facility].Serum Zfygmtipzj5131-07-76 11:49:15 Test Item Value Reference Range Interpretation Comments Creatinine (test code = 2160-0) 0.81 mg/dL 0.67-1.[address] [facility] HospitalBUN2022-04-27 11:49:14 Test Item Value Reference Range Interpretation Comments BUN (test code = 3094-0) 15 mg/dL - [facility]UN2022-04-27 11:49:14 Test Item Value Reference Range Interpretation Comments BUN (test code = 3094-0) 15 mg/dL - [facility]BUN2022-04-27 11:49:14 Test Item Value Reference Range Interpretation Comments BUN (test code = 3094-0) 15 mg/dL - [facility] HospitalPhosphorus Ahppi6251-61-01 11:49:13 Test Item Value Reference Range Interpretation Comments Phosphorus (test code = 2777-1) 3.4 mg/dL 2.5-4.[address] [facility] HospitalPhosphorus Szmun4601-09-05 11:49:13 Test Item Value Reference Range Interpretation Comments Phosphorus (test code = 2777-1) 3.4 mg/dL 2.5-4.[address]Ph[facility] Fhtwd1317-31-27 11:49:13 Test Item Value Reference Range Interpretation Comments Phosphorus (test code = 2777-1) 3.4 mg/dL 2.5-4.[address] [facility]Phosphorus Ojvun9570-18-22 11:49:13 Test Item Value Reference Range Interpretation Comments Phosphorus (test code = 2777-1) 3.4 mg/dL 2.5-4.[address] [facility]Ph[facility] Ddmgm3252-26-30 11:49:13 Test Item Value Reference Range Interpretation Comments Phosphorus (test code = 2777-1) 3.4 mg/dL 2.5-4.[address] [facility]Ph[facility] Pmxlj2250-70-17 11:49:13 Test Item Value Reference Range Interpretation Comments Phosphorus (test code = 2777-1) 3.4 mg/dL 2.5-4.[address] [facility]Ph[facility] Doilv4839-88-01 11:49:13 Test Item Value Reference Range Interpretation Comments Phosphorus (test code = 2777-1) 3.4 mg/dL 2.5-4.[address] [facility] HospitalCalcium Xfekh9879-53-32 11:49:12 Test Item Value Reference Range Interpretation Comments Calcium Lvl (test code = 09520-9) 9.1 mg/dL 8.4-10.[address] [facility] Kecnf8536-22-44 11:49:12 Test Item Value Reference Range Interpretation Comments Calcium Lvl (test code = 29775-6) 9.1 mg/dL 8.4-10.[address] [facility] Zrppz1638-57-20 11:49:12 Test Item Value Reference Range Interpretation Comments Calcium Lvl (test code = 08413-1) 9.1 mg/dL 8.4-10.[address] [facility] HospitalAlbumin Jwoqx1403-07-20 11:49:11 Test Item Value Reference Range Interpretation Comments Albumin Lvl (test code 3.6 See_Comment [Aut omated message] The = 6344) system which ge nerated this result tra nsmitted reference range : 3.5 - 5.2 gm/dL. The refe rence range was not used to interpret this result as normal/abnormal . [facility] HospitalAlbumin Lughw9820-13-13 11:49:11 Test Item Value Reference Range Interpretation Comments Albumin Lvl (test code 3.6 See_Comment [Aut omated message] The = 1816) system which ge nerated this result tra nsmitted reference range : 3.5 - 5.2 gm/dL. The refe rence range was not used to interpret this result as normal/abnormal . [facility] HospitalAlbumin Jnaup9240-17-19 11:49:11 Test Item Value Reference Range Interpretation Comments Albumin Lvl (test code 3.6 See_Comment [Aut omated message] The = 6150) system which ge nerated this result tra nsmitted reference range : 3.5 - 5.2 gm/dL. The refe rence range was not used to interpret this result as normal/abnormal . [facility] HospitalAspartate Aminotransferase 2021-10-24 11:49:10 Test Item Value Reference Range Interpretation Comments AST (test code = 14 U/L See_Comment [Automated message] The 1920-01) system which ge nerated this result transmit lakhwinder reference range : <=40. The reference range was not used to interpr et this result as paras l/abnormal. [facility] HospitalAspartate Aminotransferase 2021-10-24 11:49:10 Test Item Value Reference Range Interpretation Comments AST (test code = 14 U/L See_Comment [Automated message] The 1920-01) system which ge nerated this result transmit lakhwinder reference range : <=40. The reference range was not used to interpr et this result as paras l/abnormal. [facility] HospitalAspart[facility] Aminotransferase 2021-10-24 11:49:10 Test Item Value Reference Range Interpretation Comments AST (test code = 14 U/L See_Comment [Automated message] The 1920-01) system which ge nerated this result transmit lakhwinder reference range : <=40. The reference range was not used to interpr et this result as paras l/abnormal. [facility] HospitalGlucose Jvcmx9678-15-95 11:49:08 Test Item Value Reference Range Interpretation [...] diabetes Lab Interpretation (test Abnormal code = 92789-7) [facility]Gl[facility] Bhmvn2368-50-30 11:49:08 Test Item Value Reference Range Interpretation [...] diabetes Lab Interpretation (test Abnormal code = 68734-1) [facility] Vwcnw6879-11-01 11:49:08 Test Item Value Reference Range Interpretation [...] diabetes Lab Interpretation (test Abnormal code = 01715-1) [facility] HospitalIgG Nkmscagiun7539-92-79 06:55:27 Test Item Value Reference Range Interpretation Comments IgG Total-Hart (test 830 mg/dL 767-1590 code = 2465-3) IgG1-Hart (test code = 418 mg/dL 427-791 7405-1) IgG2-Hart (test code = 157 mg/dL 171-632 L 2467-9) IgG3-Hart (test code = 56.8 mg/dL 18.4-106.0 2468-7) IgG4-Hart (test code = 8.8 mg/dL 2.4-121.0 Test Performed 2468-10) by:[facility] [employer] [id number] [employer], [employer] [place], [place] [address]Gqk Director: Petar Johnson M.D. Ph. D.; CLIA# [id number] 2 Lab Interpretation Abnormal (test code = 39366-1) [facility] Tbefczomse4918-13-02 06:55:27 Test Item Value Reference Range Interpretation Comments IgG Total-Hart (test 830 mg/dL 767-1590 code = 2465-3) IgG1-Hart (test code = 418 mg/dL 735-277 4116-1) IgG2-Hart (test code = 157 mg/dL 171-632 L 2467-9) IgG3-Hart (test code = 56.8 mg/dL 18.4-106.0 8-7) IgG4-Hart (test code = 8.8 mg/dL 2.4-121.0 Test Performed 2468-10) by:[facility] [employer] ior Klqex3988 [employer], [employer] [place], [place] [address]Qkq Director: Petar Johnson M.D. Ph. D.; CLIA# [id number] 2 Lab Interpretation Abnormal (test code = 38624-3) [facility] Ghjffaufct4441-72-83 06:55:27 Test Item Value Reference Range Interpretation Comments IgG Total-Hart (test 830 mg/dL 767-1590 code = 2465-3) IgG1-Hart (test code = 418 mg/dL 678-289 5424-1) IgG2-Hart (test code = 157 mg/dL 171-632 L 2467-9) IgG3-Hart (test code = 56.8 mg/dL 18.4-106.0 2468-7) IgG4-Hart (test code = 8.8 mg/dL 2.4-121.0 Test Performed 2469-5) by:[facility] [employer] [id number] [employer], [place], [place] [address]Hoc Director: Petar Johnson M.D. Ph. D.; CLIA# [id number] 2 Lab Interpretation Abnormal (test code = 10409-7) [facility] Jihtthumkx3578-90-82 06:55:27 Test Item Value Reference Range Interpretation Comments IgG Total-Hart (test 830 mg/dL 767-1590 code = 2465-3) IgG1-Hart (test code = 418 mg/dL 705-461 3748-1) IgG2-Hart (test code = 157 mg/dL 171-632 L 2467-9) IgG3-Hart (test code = 56.8 mg/dL 18.4-106.0 8-7) IgG4-Hart (test code = 8.8 mg/dL 2.4-121.0 Test Performed 2468-10) by:[facility] [employer] Ksdbm[address] [employer] [address], [employer] [place], [place] [address]gz Director: Petar Johnson M.D. Ph. D.; CLIA# [id number] 2 Lab Interpretation Abnormal (test code = 54495-4) [facility] Rbobxvnrvn8965-28-36 06:55:27 Test Item Value Reference Range Interpretation Comments IgG Total-Hart (test 830 mg/dL 767-1590 code = 2465-3) IgG1-Hart (test code = 418 mg/dL 758-961 7753-1) IgG2-Hart (test code = 157 mg/dL 171-632 L 2467-9) IgG3-Hart (test code = 56.8 mg/dL 18.4-106.0 8-7) IgG4-Hart (test code = 8.8 mg/dL 2.4-121.0 Test Performed 2468-10) by:[facility] [employer] Dqdni6309 [employer] [address], [place], [place] [address]Gzk Director: Petar Johnson M.D. Ph. D.; CLIA# [id number] 2 Lab Interpretation Abnormal (test code = 40048-5) [facility] Lxbrbxjuoq7589-64-60 06:55:27 Test Item Value Reference Range Interpretation Comments IgG Total-Hart (test 830 mg/dL 767-1590 code = 2465-3) IgG1-Hart (test code = 418 mg/dL 738-528 6911-1) IgG2-Hart (test code = 157 mg/dL 171-632 L 2467-9) IgG3-Hart (test code = 56.8 mg/dL 18.4-106.0 2468-7) IgG4-Hart (test code = 8.8 mg/dL 2.4-121.0 Test Performed 2469-5) by:[facility] [employer] i[employer] [id number] [employer], [employer] [place], [place] [address]Bmh Director: Petar Johnson M.D. Ph. D.; CLIA# [id number] 2 Lab Interpretation Abnormal (test code = 89024-2) [facility] Icvzgrohxk4874-63-32 06:55:27 Test Item Value Reference Range Interpretation Comments IgG Total-Hart (test 830 mg/dL 767-1590 code = 2465-3) IgG1-Hart (test code = 418 mg/dL 493-193 3721-1) IgG2-Hart (test code = 157 mg/dL 171-632 L 2467-9) IgG3-Hart (test code = 56.8 mg/dL 18.4-106.0 2468-7) IgG4-Hart (test code = 8.8 mg/dL 2.4-121.0 Test Performed 2469-5) by:[facility] [employer] [id number] [employer], [employer] [place], [place] [address]Dqu Director: Petar Johnson M.D. Ph. D.; CLIA# [id number] 2 Lab Interpretation Abnormal (test code = 57645-1) [facility]-25 19:29:59 Test Item Value Reference Range Interpretation Comments IgG (test code = 6001) 751 mg/dL 610-[address] [facility]-25 19:29:59 Test Item Value Reference Range Interpretation Comments IgG (test code = 6001) 751 mg/dL 610-1616 [facility]:29[facility]59 Test Item Value Reference Range Interpretation Comments IgG (test code = 6001) 751 mg/dL 610-1616 [place] 97559022-04-25 19:29:59 Test Item Value Reference Range Interpretation Comments IgG (test code = 6001) 751 mg/dL 610-1616 [facility] 19:29:59 Test Item Value Reference Range Interpretation Comments IgG (test code = 6001) 751 mg/dL 610-1616 [facility] 19:29:59 Test Item Value Reference Range Interpretation Comments IgG (test code = 6001) 751 mg/dL 610-1616 [place] 97559022-04-25 19:29:59 Test Item Value Reference Range Interpretation Comments IgG (test code = 6001) 751 mg/dL 610-1616 [facility] 19:29:58 Test Item Value Reference Range Interpretation Comments IgA (test code = 5992) 191 mg/dL 85-499 [facility] 19:29:58 Test Item Value Reference Range Interpretation Comments IgA (test code = 5992) 191 mg/dL 85-499 [facility] 19:29:58 Test Item Value Reference Range Interpretation Comments IgA (test code = 5992) 191 mg/dL 85-499 [facility] 19:29:58 Test Item Value Reference Range Interpretation Comments IgA (test code = 5992) 191 mg/dL 85-499 [facility] 19:29:58 Test Item Value Reference Range Interpretation Comments IgA (test code = 5992) 191 mg/dL 85-499 [place] 18847022-04-25 19:29:58 Test Item Value Reference Range Interpretation Comments IgA (test code = 5992) 191 mg/dL 85-499 [facility] 19:29:58 Test Item Value Reference Range Interpretation Comments IgA (test code = 5992) 191 mg/dL 85-499 [facility] 2021-10-22 15:30:07 Test Item Value Reference Range Interpretation Comments Submitted Clinical History n7cicTVvAPDtp2blYUT (test code = 90476) mbGFuZzEwMzNcZnRuYm pcdWMxIHtccnRmMVxzc 5PoD0QxXpVoKRcqqeNz XGRlZmxhbmcxMDMzXGZ 0bmJqXHVjMVxkZWZmMH hnRw9bcMQzyXfsIgXwX XFtv7vpcgDWyaikeGc7 y0plJWBsZpB1lCQkNWm aG5yypdOvxSPoWWJqOO q5tT85NISqbS3hvXRyH GvryaYuSqR3MGfuIZYv FqD8WZGzwQJlQEPgV1f yZWQwXGdyZWVuMFxibH SyRXR8aQitl3D9xSXcx GVldHtcZjBcZnMyMiBO m1MuBOl1nZtxN7PiAFW cRvZ2lZYsRUDcUShaSA BzUELtzfB8rW80GUdhh pQ3xIUai0Tcf49nn264 wY0xqRXmNLM0SPCkLAD jnKZyXJJeBTQ7EFKgkG WsE2yxBIXwTF9aecdbY IdgJHhhULYbmBA6PMIo aELyN8ZmAKFqGKobRSL udvi5YnHnXc9qvNZocP zqIKhiv1rlp6jwxJOvM jm5OTZiFuYlRwgbVKhj m7Rih1rvJHVbpi9dJEX 9sIAquJsyx9W4zYIvEG YrpCCaidXcFAXuVaJ0Z DuxJW7kso34GIIbRPC6 bg4afHWeoShwwnMwlVR cRVhdS7QzAYHxv235NS PtR1CcJPMki5O2jyNlD kKvRVLxsNK5fxG6KQEc TTb7kUBohkS9tbOxtML wD9lasU1nREPfMP1utb ogl6yoVDsqSKstAMYee WD9meF4FRInwGYpZ5Co hM3wFXDtGNxxYHUzeta 9MlAvFs5ofXMvwVmhDO xzYmtwYWdlXHBnbmNvb nRccGduZGVjXHBsYWlu XHBsYWluXGYwXGZzMjR alMpfvHqroS5iRrVdCi JvXBqyTW1sTEFiN8swz JYcRGUuRTAaH3aqTqYm mX0doVgeEFrnsbDdAHN 7ZMjiw3qjmbasaZSxxo C5jSQsRlFoQwH5SDflq GFpblxmMVxmczIyXGxh ibuxALBuKDpfM2upXuX xLXImgEctRKvnp1YmAN YxXGZzMjJccGFyfX0= Diagnosis (test code = 34) c3hnhTAiMINsmUL7XaG xCAKqs5uom1IspRFqdU IhNDcmjWQahuQtvf77n EO6kV39KF1iYNWjGwQ2 QKGdjzV9Unm3BBEmPXA qxJFjU664c6dvy7bjwh MltTM8oBvfYQTykrnhE iM9BVmnRVMosjncGWw6 PFldFVVmhKC7QYRsvSW zO7MkLHWkOV0gitj1SC A0WQwfYTSfVzU4YELvf FWzBGYblMmsMKojx944 SBA7UrZlSIMcvmEhsUx bxK5sNtYiVLLYRgRwCC KqdFgrO6TrXPIzgJ9yo 8k0LYcaspYpCQg0YCUm D2nxcrlcahXre6VvvQ5 ou1obM9UlfDmgE20dh6 ivfNPglKA6bTHlZDOpv dZeFXKiXWDbtNwfE2y7 aXNccGFyfQ== Gross Description (test p9ygpNAkUDLwbBBSWTn code = 2740264468) wMVxhbnNpXHNwbHRwZ3 NyfjqjDZgxGU5iOV8ng KsekOSvdNNiTB5JYPEb ZmYxXHBhcGVydzEyMjQ fLYHieQRewYA6GUXcCW 1hcmdsMTgwMFxtYXJnc gC3FGMktVNkB2NpMNWn BK7welejCQT7XZyhmS5 ojzVVUxedYu1sqZPrnD tcZjFcZmNoYXJzZXQwX ODbrUbkWOZoOQf3dL4W ZxlpL95xh4Y1Fit2FYY fOYPbH3AzBK1fRCHigP WrC01OTjlnATH0HHAPO qusQQNjUR3Sn8erTQYs nCZdGHA0JKbzrPJlULX qHRXvRMx4UZXlHAehzR PpPQ7reKszBjgqiAqke 2VjdCBcXGlkIDUxMDAy XIrlCKTrEW5XZvTbDRK 6LXDsDRAzFZd8NMa0LI 0LXoQzLCRqZXX2DLA5F SFfNUt9YHkfVJ0OZJSu OmSbVAD4ABKoBKDmTJP bMHi5PIYpAMgoLZRptK FsIFxcZnMgMTAgXFxmY hOnTCSaZMuwvtC6GVAt YWluXGJcZnMyMCBBOlx bHOBaKKpxbFxmyU1rDA OwF80ud4NLt6JxCW0HU Dt1ppBdjniocY5nZXMz akPeNOlzaJWyG5jhYar cYqBrKfVxKFEJf74epV AkwMKmRNMtp3EuMMd8m bHgO91hZ3ZpWYgrOJBw btCmGLWfqSwhS9j9rFD 8RNYdZHQsUSIkS19fRR Hlhb3nre33xcFqblGdh GAnwXRcKeJzn4J2YDBs z7D5CUZbYOZboGPmyyw nBJ48AWPzUIWeAJ6rxV VkIHdpdGggcHJvYmFib XXcgAjmcjFnpRL1OXPv SHmsKOTymYmiGOq2EWB 5Dg9ktULkWNUgxyAOFQ 9nLYksao34VKK8b3icb WVsZHtcKlxmbGRpbnN0 IEhZUEVSTElOSyBuYW1 lPUxJTktCRUdJTnwyMT PuKjztlVJMPWN7HSwuy OvtdQb5u0xdiORof1c3 RPbmDFF5hViZl1ncrBF kUZqkShxcvJEpojQ5OF xRQJVYXSzVDkWfVF4zD DeYMifGPkG0RlGdONO6 SHaSY1HMfTG0Ztz9ULk 8fXtcZmxkcnNsdCBcJz WAuD2qnBemuD9soJBvB 2hcZnMyMCANClxlcGlj WkLchZIuNsDwdrK1NNS edMGvIQU0SO2wJIDnnq zrCVUkGHXqNWJ3GSibq E00eJAbZEBzFNPasNUb fVxwbGFpbiANClxzbC0 jIjHqz0pqsDs9FQGLFa tkaXMoiovtxzN6LIEgv 1hhzQprv3RxtJSkZQ6p gYucfA3zJoPmYdCFBb6 = Disclaimer (test code = k5ajkYMjXGIrpZSkZcH 9844) tSKEiTPStk5glBEFkdI FuZzEwMzNcZnRuYmpcd JGxOXBwIlDkj3aln497 cXQpr4jwXEEdQmU5lUM zGGZdbPQeA174SPViUD kde4qpm9LoIOCvfAPwt 9Y8GATAimxhlNo0aWbz H04ow5P6JfcbK4naVHR dTSPlQ2MsJF1dMRRgGt g3BDC9YAQ3FNWnVDWsI 2VeID9tVMIoqXGaUVe7 b4fhtHuvHSTsTHA5b3b qVMmmntAkSF2jsw7saY f6a5xhbyXtXWFvWXTyz ESNMFDhT2OopRgrSq7w vJs2lXblWsayZPX6Dzw 1ML3hfk69kzh1iQkzLO NbpbwhMbM1NBftLNDrm ujeEGi0AVtwGRVthYL8 YRNciEKmO5QdFYGbXB0 fngx6GPC2INzfSDRfQc Q0TLJogCCiMEPjfAvbF Nsqc665SEP6JdSwAF6e F8Ozw3Z4xH3xoEHtNEZ uiUTfGzYsFDRiww2uhR BcTMegm8GsMAM9ogW0m OXlvULuQABnUI66Vyus m3AlFgupJMG7ZHLgynA xj6Dmh9qeEaGxbmSkJ6 znR8LsYVGhDDUnHSIyE cBjxtFaw4Sfw0HsjPKn qMc3e1llWKTbTYPplNj ht1khXFQ5TGQuP5G2jK Get0geMFulRXZdwGW5g jM5HKHvoIViD6XseU2z NEPdTA5punz8u2mvEAS 8ZXcwJOOwSnY1gwO1EF BcaGVhZGVyeTcyMFxmb 628HFL8BjZiRUArd1Aq U5QpyGmzP97uyXwtL65 hSDNsuFcmdT7svPjpzZ 5cZjBcZnMyNFxxbFxwb NZlupheXLbwhwM3PHab zizaFLRqJOkqL0gpHnG gKFSjkBdzFHjes1EdFH HqVWUfTtgwyuM4FNZDr 46kPGClp9LvXAUziI6q rGAsWBuwogAcfBM4CKh hdmUgYmVlbiBkZXZlbG 6qGUQlCU0bIMYtgvGes t4jxoWkAXKkMASgX0In cmlzdGljcyBkZXRlcm1 haxVzSOI2JJALLV1WEB RmUYFsx40eSAXzgVmgd U9jxWKcfwAuSLDmk8Pe lF0ljMDAKQYcQ5diLU3 zLUqwp6RhlJXcdWYeiF W0KFOwb4DtGuUkfoJzf DTrnDMjK1QplMygW7dh MTQdQEHyksLyjMYvx4P zKBIqbLA5sRNdAT0LDi QTg40kRDVtNSAZudItJ GZgsHwztTA6mbU2tT4d LiBJZiBhcHBsaWNhYmx aUGCrl371ub2hmnW3EO LlNESqzuvag4QpKRBvJ RPyxY04KKQxKBJjbg6s epydgZNsrbXfB6Wzqej 6oR7mEJIgRXtlNMThBK ZzMjJcbGFuZzEwMzNca GljaFxmMVxkYmNoXGYx YPklJ6rpJzWkUaWzYcg wYXJ9 [facility]ation 2021-10-22 15:30:07 Test Item Value Reference Range Interpretation Comments Submitted Clinical History v3mvaSAtGTVpc7kxDRG (test code = 87023) mbGFuZzEwMzNcZnRuYm pcdWMxIHtccnRmMVxzc 7HfA6HpFqBhMPyebnHc XGRlZmxhbmcxMDMzXGZ 0bmJqXHVjMVxkZWZmMH jqWd6njFOhsGauKdJcI OLdm8okhzZIgzmhlEl2 b2bcCIMwVjV0kWJtZXz jN3vqdkRpkEKmWUEjID w2lU75FSGreQ5snTFsF TuqhiGlGwL7VNrdQWPa RzP6ZXMmiVJaSZBqD8y yZWQwXGdyZWVuMFxibH LdEXF4cLqmv8S5nEMgi GVldHtcZjBcZnMyMiBO t7MoIIc4uIgkV4XtTQX jNcU1rVYzAHCtGIvxJS RwCRCdwrO2oX13IAqsv zB1zBGrz6Pxq90ig409 vV8ffMHlIBL1HUNuNHH sbLYsWMBnHJJ2YAVweG MiR0odPCRfCV9ntdvnY FeeVEjaLXPupHE0RWJr cJKwK4JtAWZwSEbaCLJ oblb7BfFjMa5beLNmcS kuRGbmy8psh8ublRCvB ef4ZOLbRoAkDfbxAEui p7Ftx0hwUZYtmp3oTWJ 7gZIsmTkfq9U2mAYxYJ MhnQKxsfAbGJQoSgR2D KotGO9ica37HORrHDF2 ck3fcMLflTfogbVycZG oZXzuS0JoNUDoc669YJ RhD3DhZLBxw5B7wjSmU hMyMZHovXM1kwQ7FLPx HAe8zTUueoY7maUyqTV lZ8nypS6pBJHvFG0cdb lzi2wpEDkrCLurEYPbh TV8rzS3RZUbkSRjQ0Xo xV9eTQFyYYhjORXrfwo 8ZeOfAd9epGCcwYgrCU xzYmtwYWdlXHBnbmNvb nRccGduZGVjXHBsYWlu XHBsYWluXGYwXGZzMjR cxLzqtZbujH1mCzTvQq JlAVwkZM7hAJOhP4rzp KQaPRJfDICxH4zdFwMs sO7jaUctZEioqhXzFZB 1PYwnb5msfqwbsYWqnw B9eMKuZhRpTwD8CZwvf GFpblxmMVxmczIyXGxh wcbfKBWwVOxoY2qsWhI oPJOztRsgRDbcd7RuEL YxXGZzMjJccGFyfX0= Diagnosis (test code = 34) s1nkgHPaEXGolPN0PpO aOWDqz0qxv6PlsFOkrQ XbZBkqbRBrxqLbve00c TR8lZ89WC8fZUCeSwT2 MHAzffF0Cti9UPJsZYP ztDZxX447z8ngn3kydo YmmFM8sRbmQVUqggoeK mL9PTenKEAhagksLNy0 JLpkHHQedFL7ZTXemOO fZ1IlOJBdNV1nmxf5ZJ S3LKyqQHEdYcO0TJAru WTjTIGmdAzgLUpdr293 BWC3VwIsLZCbxjDheMu dnY4pWiAnTPRKLzCzNT ObpRspN1WxCEIbgQ1jt 8o9WQmwlcWqZOu8FFSy X5mjaqdygeXpr3PaeO9 wb8deY9GlxAslT03bh4 jmiLWilFA4vMXgIJHnf aLtXWSkHYWojCqjR9w4 aXNccGFyfQ== Gross Description (test j9racLTiPNZlvRHSKPm code = [id number]) wMVxhbnNpXHNwbHRwZ3 OlpxjuZQwaJV0pOX2xx WtqsDSfvKNkJM2AYGAo ZmYxXHBhcGVydzEyMjQ qOMWhiHOvaXE3WQErVA 1hcmdsMTgwMFxtYXJnc iO0CUIxySLyV6OuWYFa AW4rsugtWKF2ECmydO3 olnNWCxedFl6dgTKksJ tcZjFcZmNoYXJzZXQwX CRvgNokDCJhDBu4qK3P LvjpK29ty9Q1Gbc3NJB mSZIoY1HqHD0wXQUvdD AzT97LRqffXLE4NPMVE ppoWLEbFI1Co6ssTCOs mDYiQSA0VMmlnFPrPYW iSHKlFJj1GSBrFLahwO EeAT2yhOrrXxvbbGlwv 2VjdCBcXGlkIDUxMDAy TSbwRCRoUY3OKpMqTEE 5TMAaLOJsTFo3NUz5PC 0GAzMbHPIhNKE8IKZ2O EDyGYt4WVlwDY2GAILe KlZkKUR6XLSiZPTjMYL fKSh3RCIpKJziDRRjkQ FsIFxcZnMgMTAgXFxmY kMdQSEiGRgwqpF8RGBc YWluXGJcZnMyMCBBOlx xYZUaYTeygCxawK2nYX ZwX26hz7TEa9AeCJ6JS Wp2qnIhsjzstN8wLJIu cuZnOYcpyAZdG3qlPcd pGnHwYcVuXWRZe83nhT WrvPGdQZAzg2JpOOc9v cWqW27gW2CaBYkaHVUz nqQoZHSioLtnG3c7cFR 3WCGwXCRnZEUdU85nIW Wiyl8yol00tdNdhsCdu PBxaFLcGmOxh8J0OKJz t6I3ADYkPMVpuOGbbqy iIM53IZPcBUXdFL3fuE VkIHdpdGggcHJvYmFib TCueSysveGqqUT3HBWk UWgcDPCypXgaBUc8FVX 5Kc6utPGcZGLijgXITP 9wYNqxmi41WNY8n5xwp WVsZHtcKlxmbGRpbnN0 IEhZUEVSTElOSyBuYW1 lPUxJTktCRUdJTnwyMT EzNzyckDANUVQ2HDdhq DwjjJz2u0crgADsq5b4 IWwcIAA5cFhDi0oubPN oVKxsHdmbkTZblrJ4UW lNBRTCHEqDXvOtKZ7cG HpKKxhBYpW0LaKbJSL5 CRpWC1FWrUL4Izq2BMu 8fXtcZmxkcnNsdCBcJz RVuQ0fxMlcxA5azMLyL 2hcZnMyMCANClxlcGlj WaPspLNmYaUaxgK9EOY iaVJvDZY8DY1wOPQjqy ccCZEgXPWsVVR7ZCjhs N00jMRbJHDwWMZxbLZi fVxwbGFpbiANClxzbC0 bTqDah8cbvOt5NLCNIw onqUKwutixcgF1LSBpr 3yxyUurt8EqcVNsDK5o fGgpxN7zUjFtXyHTXh5 = Disclaimer (test code = w5cffAJdGJThpWUsGoQ 9844) hHLFuZILth0vvTEHfeV FuZzEwMzNcZnRuYmpcd DOfEVUuXcJym4fbs263 wVTqb8okWQHhTuV7bWI vHVAtgEBwB198BMWoCW ldw5xcb5IhJZZhxTOqk 4U3TTSTvzlnfHk1kIty Y22ka2G8VjvrA1mnBMT mLKExN5WbHS4iQXEaMw b2DEE3HYD0JOSdNOQbN 6QtFY2oJOLokVCfQPr9 i6juqFxuUMSxRTC5h9l wUWydusNtVP0wsu8muS r8p1ofjvEuYQRoRBPts PXBOPEwK0KlvCscYz3t dRx1hNsfKtrkGJD5Tnr 2GW4wsu09flx6wXikZS YtqmbkYoG8BXtzNFDst hfpMQs1HJwmZUGvbEF1 IDKzyJFhT1BnQIKtNI8 eqnd7CRX5FQctQZKwWb R3NBKzrYYlTTYmmNxoM Oqiw147TGN1OnSdUH0u Z0Foq5B4eV6hfRIiCPW peVRvUlRrMQFxhf2iyE ZrBCddr9LaCXJ2raH3r DQrpWFwVOPnXC39Srck i1NiFxlhFZU5LNRkapY ol8Uty3aaEqTafaMmQ0 hdC2MaZCLfEEZxHQYzJ rXjsmVgz0Bmd0XtzFBe iWf5z8rkTDMcOERbuRv yg5jjKON6WJOgP4T6pD Sgb6ffKVqcRPXzsCQ9i rO0JMNgkCDmH2FyoD7i AKCoUA4dzgl1q3nxATL 6ALkuZADsHbW8zbD8JG BcaGVhZGVyeTcyMFxmb 350XDP8ZoMnROEav6Ph I5AteBtwS48qpRavF01 gQRYliAwxiG5qwGbahZ 5cZjBcZnMyNFxxbFxwb MSecufhIEjgnxF7PRqt tklbRQPlYGdmK8pkOnU wFWQweTrpIZham3IfBF IsSHCyXrssiaR0GDTAx 21sJKGmd5ZuPPFtpF7k eZUnKFfvjoRydWY4UWb hdmUgYmVlbiBkZXZlbG 4mOBGdGB8mIRApnoIdw m6hcsQrXMIfBPKjF5Zp cmlzdGljcyBkZXRlcm1 uhcOlQNW0QUQQAQ5MZY AvPQHnn16wCULydWisp J1wnACjfuBkIRIrb1Qi uO9gnKEESQCgH9hnEH7 oCDrpo6WxlMSadQWciX C0YOUuh0WsPkBjbvPyy HZzsPNtV1XipZqoO2xp WRDmSRRdpzZrdECui9Y bMYHndDM3rXDxJC4YXm CPe00dPWIyGBCGpfUbW MQbuGaebCJ5lsH0yY8h LiBJZiBhcHBsaWNhYmx sLQQzc505no2zbzN6NZ TcTUHackhco7FlJOZfJ MDiyR34AFOnKENrql0h jelogERgdkMdS0Wemfo 3dL1hICUjOQuiWIIrTK ZzMjJcbGFuZzEwMzNca GljaFxmMVxkYmNoXGYx SPszH1fmAgWoCqQjUsk wYXJ9 [facility] 2021-10-22 15:30:07 Test Item Value Reference Range Interpretation Comments Submitted Clinical History h6mxtDDsUNDaw2ilCBL (test code = 71225) mbGFuZzEwMzNcZnRuYm pcdWMxIHtccnRmMVxzc 8KwY0KkNxEhCDdqizZv XGRlZmxhbmcxMDMzXGZ 0bmJqXHVjMVxkZWZmMH haHh3avRIlpHurAwSvT YYre0qprfMQwktleMl2 q5yxVALlOgD5nIApKMb uT8nihfFmsLRuLXCzLG d7qJ96TSIqlD5qlVDzA NcbwnPoHiU0ADfiDRFo VaD3SGIgnNWsOGYuO3v yZWQwXGdyZWVuMFxibH QkIQY8zUmmk0O7jRQhm GVldHtcZjBcZnMyMiBO l2CsRVg5tYsdC5TfMON oHfX9gCEvIPCoMUvwES CbDMWjwhO4wR95NMgnn wI8lAGyp6Rks03bn766 bG1qnLQyHFQ8UNQcPTW ykIRdGRUnXFW5VICasI XkU3cwRLNuBH5gsukdP IfxNTkaBJOzyOV4FXBx xLHhR2IbUBXkOKbjWEB kixk6JgVvUt0jdBScaL lvMYwca4dbp6hzdDCzM sd5SFVgTbReFzxpHVuw e9Qou9pvRTAdky4jXOQ 1vQMpqMozr0S1wWLjFA XidHDvwrTxZHEjZsI8M FowPN9tnz04VGOrHCF0 fw4ehIVfmLvgfhLdrNO gGEswN1VqWIEuv625BG KyS7QsOPEqh2S7raTuA pPrBTXxgSK9yhC7VNTy VVi5uKGwclC9nbXxeWI xN4qpvW1fKYZqQC7idk yxa2fyTJliMQntOCWku JX0fhA0RWIggVUrG7Um aB5xYPPaVWgsCVMkvyq 0VmBaGc1xxSWmdOgkMR xzYmtwYWdlXHBnbmNvb nRccGduZGVjXHBsYWlu XHBsYWluXGYwXGZzMjR jwSkshTrhfU4iUiSlNk KoTZzrBH6hMZRgQ7tlu PXzXPAuYLJnF7ysIdFw sY0rxHujBVmyxfEwBMQ 3MGogy5bswfnvjCMlon Y8xWBgHoVlGlI9THdop GFpblxmMVxmczIyXGxh lhqwEBDrTXfcA4xpOtG hYDWtaYthKFzeg2TuXZ YxXGZzMjJccGFyfX0= Diagnosis (test code = 34) p8dylGAsHAYkhMS1CqC lJEKpo8wlb2AmoDEdnZ HeWZpzoPTszlZpsj61z FH2qV43NY0tZRPeGiR9 MKHqhnV5Mit3VDTcPFR rfNQgF458g3ret1wych VsjMS4wFboEXNpjnhqK aB6ZEpjDSNpadnyNLb3 SIngDXHkpKC0VGSlnZH jF1NvWNMeWZ0qxdk2TE P6CZcgOAXwEoL8IHSjt SKbLBUofXhcQCweg066 DLB0EuCdHJOairElzTu ceU3bGrHsRLQZBuDaYQ LnpKldL7WbKKTevP9vv 4i3OXvmtiCdAGd7LYMu B7lyzarxekEdy4CtzM8 dd8xmY4SueSfyK20en3 ablRNoqGT7bOEaWRIhf gNfHTKqYGXruIniJ0u0 aXNccGFyfQ== Gross Description (test s7itwMUwCBQxzXNEUSs code = [id number]) wMVxhbnNpXHNwbHRwZ3 JafotxSVkjBY1jRK2qv XzrlCCwxWKrDL4AOTAj ZmYxXHBhcGVydzEyMjQ jDXCjyTYpjUG3FRUuIN 1hcmdsMTgwMFxtYXJnc aC0SABgfAQrY3GiBPOq UV0maxbmJJR7LLhzrV1 qafIOLrxjEb6mzNVrrI tcZjFcZmNoYXJzZXQwX HYzjCbiLVMqFJr0jG2W DhszR00kz6C2Gko2XLF kSKSjU8MoQU9pAXIvwJ NnT36CHxbyZRM9OFYPH rwsWYXfSB7Fz0jcXUPt zEPlYXP4MXamoHJxJIM xNEHtSOo5VWWhYPchkV JfJG7mcNrrLwbqsOele 2VjdCBcXGlkIDUxMDAy OTjhNGFgSO6ASbIiYND 5NFBiJXHqIDd4WZs2AA 0AVpBsWMJkFKW5HDO2Z PUaVXm8ACuyKX2MYVDw EpKwNTV4STNxENZkNKG aOJe3EWUaAGcaGTTjuH FsIFxcZnMgMTAgXFxmY tOsYAHwFGvxphK1DZLb YWluXGJcZnMyMCBBOlx qFKGrPHygvAqbbZ0wAY QgS61im8CYq3IbNW6GZ Pq8vcGhgfknaN7mBFVi bmVgYTmwvTHhT5fjSuh pYeGxNmEbUWTHt47eoK KyqNPvGPJru8HdARm7a fMaL42fA3NtDWhwYPCc vxPpCFIujZrcC2d7gSJ 0YUMyDFYqPQCyV99eMV Dgsg3dis90hkJanaHzs RNuvZWnItCav3C7GCRo b6X3MNCyDSOkuNPtfmr qOG10ZPFuRORsLI3afD VkIHdpdGggcHJvYmFib OHfiEtomkYqxIG4KKDw SHfgAUXqyZejXWx3KRA 6Cx7wdSRxNJVoyzIXIC 3cDQnrwx59JLZ7l1ewq WVsZHtcKlxmbGRpbnN0 IEhZUEVSTElOSyBuYW1 lPUxJTktCRUdJTnwyMT RcIgqnsLPPJMG1AFcwf LxhsSm6c8frcGQol8i9 VPtuSPV6hYkFw6pnzXC qWBxiBrzinUYsjaD0YS jEADONZYfRVtObPF4hS PyNGsoQPiE2QmMiFMG3 SQeDS5JBeWG0Mxt9NZp 8fXtcZmxkcnNsdCBcJz EAfC2qdRlixE0kjNAjP 2hcZnMyMCANClxlcGlj YlMjfCRnFsIpvyY0RPX bpWDeOMR2YL6eOORebb xdIHZpOFGuLVY2SJqae B49jXUuOFPbWTVpwMRf fVxwbGFpbiANClxzbC0 hLuOny9mqjBd0QDWORs femPIuoyuondS6ONRqk 8myjUpsm7NseWPhAQ8z rWrmfT4jSgPhFiEJJx7 = Disclaimer (test code = o2atqSXvIXHgmRFwEfE 9844) jXNVzKVBwe1kaXRDuoX FuZzEwMzNcZnRuYmpcd PHmAPDjJcYct1tak334 zDAbm3ihDXTbFdE3xJF fLJJnwAIiK731LMMqIL hit0ycb5MhNBOoqJTbr 3M8RKTJdedhtBi2lAdf G81ez9M1VxipJ0mqJIT yAFIkY3UfBM7zTNFmAj j2YDE1NMM1WJVnFFBhA 1FrDQ5aLBMhiBDdPPq7 w9awzPjnBCHvPFG0g4j nYAzvibYlLF2vpj2pbZ n4w8yinbHqEBSrFRTfk TCOYFGkU7GvkAeoBg2c pHy4nRtdQcvrSWH4Ydh 3AA1wok54axo3bYtdUD NwaufiPrF8ZPgsIJZej npaZOh0THspPIKcfMX6 ZJAfuYPfJ2KgWUYcIA1 ipdb9IUK4JMgjWCViHe S9QPOjvQGhDFWypHqkZ Itkv094PKA9WoNjWC8s U3Dgs9B6gY9hoIJwAOF wuJBoWcZyWGMrah9tbZ HqJVuov7BbUET4vlV4g BXhbCJeYECkAU53Wcnp a7LvQunkCNM8CDMfxfX yp6Emy8iiAoZrlxThD0 fkO1MzGYNpYXTpSOYdT wZtnvOzo4Wie2IhpYDc fSz4o1utOEFiPTBdjBm hz4txXUS7BXTlF6T6lT Zrw6vtCAwlUTGgdOZ7r oA0WXKfjKQoW1VkgN4e JWRsJZ3ltpq3x3meTSP 2IZlrHVNkVuO0vvE4HI BcaGVhZGVyeTcyMFxmb 129UCZ2IkDvUFFeq4Vg B3WbpLwaT75dxSgsB89 xGRRkoRnwbC4okDvwjF 5cZjBcZnMyNFxxbFxwb JAnrwcyPTflvpW6FRza uichEZXvBQhfY5qxFkD nCFMzpWrdJTkay7KjTP OpSFWyHtazuqR6WKTZu 77oDKSup0WvBSFsbN8g xIMqGKcvboChcBR0LPa hdmUgYmVlbiBkZXZlbG 0zISZpKC9aINVlveIth i5wcpTfFVQsTGNoV4Tb cmlzdGljcyBkZXRlcm1 ulwIhCJK2KYQYOW9AHD KzSQEbl44eNTSloYlie B0oxSLugpGuIDLyi3Ni yU9ntJBQKARkU2khJK0 gBLxxh9NpmYEsvWSbhA A7PAAvn7NlQgHtmeAli EXvqJJiP0QamNutE5jw NKHdWIBjacDttVEbe0I fFMOgcRM5jXBeEU0BOs JOz35aZCTkMXJOjjJgA APndZaprBD4oqD9kJ1j LiBJZiBhcHBsaWNhYmx uJIWsb476wg7ghoZ2NH CpOZAdognor4RbFLUgJ FKhxH47IKGvOCUytw5n uzdkoSJnzfEiT9Kggub 6aH8zXDXyTBblLVMuDK ZzMjJcbGFuZzEwMzNca GljaFxmMVxkYmNoXGYx HIpcG2vdPhFkEmNeEae wYXJ9 [facility] 2021-10-22 15:30:07 Test Item Value Reference Range Interpretation Comments Submitted Clinical History y8fkqHOoOPSno4qhSYZ (test code = 06750) mbGFuZzEwMzNcZnRuYm pcdWMxIHtccnRmMVxzc 9JqM0EnDzQoAFuqtaJw XGRlZmxhbmcxMDMzXGZ 0bmJqXHVjMVxkZWZmMH mdQj3rqZLctSafEzUlM RYsk8nimpTVlfxikNl0 x6jgPNPvHjX3wCDmERp pB0mkrhFalTLxHPEoSS p8oL01WQQokW1bqYVcL IskucKrPrP6BDdoCQAq SlJ6CUXdxTRaBYMlA0y yZWQwXGdyZWVuMFxibH MpJZH7eEnhx8O9pFHcr GVldHtcZjBcZnMyMiBO g3LvNBm4fOgtM1RvUKD yVqR4pJMpIXBqRCxzNN McXQSjglR5mD21VJbsh yG6jRNgp5Kkw27zz881 dY8gpDEoGSQ4RKXuHUI wqIDwDCEdDJF9GBNhxI PvX3zySNIzUZ8qsunhK ShrPGphBZKjeKM4TOFw bVCwY2RyLFNlAAofWSQ tdft0IeBwTd9rwEYcxB nqEQipf9yvh9nvrPQeW ic3HCEpHrHbVdruGUkj z2Jyt3shGYWbyy5hQNX 5aDPaeChnl1A3iPFwUH EpeQEwonBjDDLiUyE8M DyqFA2cio49NWHnIEN1 lr8ddZNraRfwtmVdyWO gSRydM5KeGGTzb969QF OjE2QmNAKht8U2pzUxY kSdNAZomRJ6ivL2ZYGp RDx5jABsteJ9lxCnqZW xV0aqoN8kVMQgIY4ofm jwm0xnIPouSLfeCVOpo QG7yfM9IFUynQTzZ4Qf lQ4sMRZpAQrzLOWjjjm 6JqOzTr5oySIxiFjxIG xzYmtwYWdlXHBnbmNvb nRccGduZGVjXHBsYWlu XHBsYWluXGYwXGZzMjR qkVhwxUgscD7qSrCtHn MhWQfpUY2aODTpA6tld CRvXDXsYLHzN3lzAgVb iL8ayXbdDDqefmUgMIM 1VEliv3vrraxoaUQlmi A3lUTzRzUeRqN2WEhlx GFpblxmMVxmczIyXGxh icczMSAqPMbhK9mfJnG nHKUgkFclDRuzp3FqUY YxXGZzMjJccGFyfX0= Diagnosis (test code = 34) a5jtuDIqQDLcgPY9XzW sXLWnt6zkt0GgqJZksT MwCMuneXVjsvOueb88o OI2tF87GH8pFXSfZdJ9 ESIznzY9Tju7LPGfOTP pmVRpS377y0puq9cjgr XciXI6kHbhGFZxoztqV zQ0YOeiGMDklqqnWKv6 FOgxMEDvxGA9XXRmwIU nB8IsLWQbZI6swvm8JN Q4SXooMUOrJyP1EYYqd XQlKUWyyOwaEJvix140 QRX0WvChTOQibwEwdMr xuW3oObXoZZAUOaYsTF MjtTuaG7LrOWJwxO6dt 7t7QVwuqbNkQXq4LRUz B6xkmcrputCto6UltN8 hb7ghU6MoxJofS95og8 wseSBvjNB6nVTtEVPcw fKgAGQfDLRkqSptD5f6 aXNccGFyfQ== Gross Description (test n6nviRRmDLFqpIKGBWy code = 0295795072) wMVxhbnNpXHNwbHRwZ3 NbrndeBGwnBJ5uMS1nv PwsnXCuiXThYK0VDCBt ZmYxXHBhcGVydzEyMjQ rWRSlwCQblTL9USMsLV 1hcmdsMTgwMFxtYXJnc lH6ZYYqqMTtZ4QmJSXs DE8ydtmeUWD4MUximM4 pehRKYbwsXw2xpWJytH tcZjFcZmNoYXJzZXQwX PEkpDlwYWHrTWj9fZ1T OrjvD46op9X3Gqg2NPT pPGXuR8ZaIP8qJOAinY OeH39WSsvbCJD6BYUXA bwcBIReUW1Rk8tmAMEo tBYdFME7XGmcaDVuIIZ hKUNmDJy1WUVrAOablS CjFF2npSwlCalowBqmh 2VjdCBcXGlkIDUxMDAy KEifGSKrBO3MWwCoQPZ 2LPFfGPAhLRt0JXp4ZX 6SVdWyCGGiPYT1GIT5N QTyBJo8CCtfFT8RIZWa FlBjGSO7WFFcUEWlTND hSZw3KGUzCDapCVFgkY FsIFxcZnMgMTAgXFxmY lBsNHGaWHhmvzY6WHHc YWluXGJcZnMyMCBBOlx fKJZlOQkvhYadvY6dBI XbQ07rl2GYt6MsTN5FL Bn8trRnsmpowQ0uDVSt zpHrRRkxiJHuH6bqWvu tQdRqCnQvWEUJh71mvF TasBZfZEVyi6TvADi7l qKwK68cU5UdEFlhYSFl urVmWFMqvOqpL9q1uFE 4CSGdENBvVDEnL30rBG Jnsv8srp93buIqgfDue PNefZDoMfNwy6W5RRKv w2B6IJSgWDEacKHawal dIM94MKNbQRSeWH2vaL VkIHdpdGggcHJvYmFib WGdlGktflCadIH3SIRe BYptUHPxvCgpYEn8TGV 6Mi1geTGuZMAcyoQMGY 5lGGufin85XZZ1i5ffb WVsZHtcKlxmbGRpbnN0 IEhZUEVSTElOSyBuYW1 lPUxJTktCRUdJTnwyMT EaMwahbSJCIVS7BRccx RfehPq9o8mavPWda6y5 WTnfKYM2eKfZu8wffHZ gAJicXeyqhHEmshH3HM aSATLYFKrDQtChUY7aQ QmEZizFMkP0LaFcFZQ2 EWyAJ8GUhBG8Uve8TGh 8fXtcZmxkcnNsdCBcJz EXvK4jbSbmeJ4etUClG 2hcZnMyMCANClxlcGlj HnWhrLPrIdLrtyY9JER owQZeWZA7KO4eJRGxdh tfFHIsPHAoQZQ0TDqsn V25cIHuSIRtHMKnnTGb fVxwbGFpbiANClxzbC0 hZjGjt5xdeBn1JLCWPt zjsFEedljsxlQ5YTMkn 2vsaZtgg3EgbLTeSP0n eUqwpP6mVdMxObUJGo8 = Disclaimer (test code = x3zliMRaWZCrtQHxLxH 9844) mCXQaNLWau3vzOWZwgA FuZzEwMzNcZnRuYmpcd AQqRASuFrNdn5uii109 xDKwh9fpGJSkIpF9aCG xUNWayWFtT310VNBoVT ekm4lfe1MlJPYxnDFmf 7N2GESRmwiibVt5gIjn S65xt3C2ItsbH4ftKEO tUWXqY0TeOL5uPZYdCk k6CEJ6HCU4UJJyXFZyX 7IaIW9oZEUjxDVzMLk0 s6mrtUadCQLqDSH3n2k pITmbibTxPX4dfk1xqP r4z3lwbdRzQTIdAEToa ZZQFNFuA8CcjJnbSe9s lUz7hOzaDahcVAP8Igr 6IS7bep13nam0aStmNG QgvejlAeA3CGepYLQcc ykhOEd9KXnkPLCpnSZ2 JIHesBGbL3VzUACrXB7 mbsy5VWS3ZPekTVBlNs N0GRTvbYWsINFctBhsC Fyfu275TJY9HdVrNK9v Q3Tpu2M3lI4xuGXiVGW srFVnXeLjCNNckl3kwY OuHAdqt6HeFJD4uzH0y GQcqBUkOHTfUK58Ooum c7JzIffvRTC9CWObmcO cp2Mfj0cyKoWmqfXnV4 oeJ2DhLSTaCOPzXKOsW yUikpTgu1Lkg3VghMKo uXv4i1vpBFKxRJEceHs uj6hiKXW5LFNyX5I3bD Rwf7zpXLsyNKHumHK9q jE6BDFhkBSqR0TnvI4h DBThPY9hvxz0j1cuYZB 1FCfbLHUoInS3cyV3LM BcaGVhZGVyeTcyMFxmb 101IYV9TsKtKOSso4Ty T5PepOqpF20syErfC15 gQVLpsBwacE5grRdaeH 5cZjBcZnMyNFxxbFxwb DSiqcwzGYocrjT9WIap bcpbRCYoDJmqF4ylSjM sRBAhtFtrHPmyc4SoLF GsKMFjTjzkmgN8CNBSb 81aRVBje3SoFDPsdR4n dCTsOXpozzFioVS6QUk hdmUgYmVlbiBkZXZlbG 7qHDDmPX0nKUPvucDkd o5tuzGtPCMvQYVdG3Bs cmlzdGljcyBkZXRlcm1 bdtDcSWM5HKCYFI3FTE PoIEHck24vZUKvmYvkl D2puBEocaHaFKBqa5Ko rN9mwPYXHQOlP9orGF3 mJCfru4BvcHAwpWHdiM M2PLTwb1DdXhMghrPhh XUsyDGmI5ErdGmwB3nj GXAzKLIageQjhKZvu7H nYAOdoZS4tPJcBE6VIg PFl06fPEItGRGSudFzK XIchLawgJG9xtQ4qI4n LiBJZiBhcHBsaWNhYmx aARGuc629ej5fzqS9MP LnDHZxjeynj5BpTUBdK RTgpU66RQPzNZKegc5a jiifxSJkplDnJ1Qvbud 8oI0mHSSoZNqpBZKmIT ZzMjJcbGFuZzEwMzNca GljaFxmMVxkYmNoXGYx ZQxsU9cqTeZuCbBsGtf wYXJ9 [facility] 2021-10-22 15:30:07 Test Item Value Reference Range Interpretation Comments Submitted Clinical History h0snmEXcQNJyx3ueLXQ (test code = 87990) mbGFuZzEwMzNcZnRuYm pcdWMxIHtccnRmMVxzc 8QsQ6YgCqLtAMijlwHp XGRlZmxhbmcxMDMzXGZ 0bmJqXHVjMVxkZWZmMH niTs1maITpcSgrJbGhE NVyt9hrgrAUybkpqQb4 e1rsUPUhJaQ4qJEzRKs nT2nmurGfaZFrDYZqEW u5gI98VNHgvF8ooOVtZ MgchqEnTlO3SFmvPEZz TsB4QBMmuQAbJTDsN0x yZWQwXGdyZWVuMFxibH AaVNA9kPbhc0C9lHTju GVldHtcZjBcZnMyMiBO x0OxHJp5pOgaR4LcSOF hSvQ1sTRdNMMuPLphMF XkUMLawwE2aI73ITzyy hR7uDSjp5Xxz50cw812 eT5atDDhDEL7GOIpKCO maCWxGOUnCAS9CSHkwA FcM1efZZVeLD1zlsyiU PrsRFgwSNTnnHD6JMHs vSAeA1OiOLRtQNssIIZ lqns3LxLtGj6dpERupC ydTGhwa3qly1fexRDwV ck2WNAsIuNkOimhLLqa j9Pdm4xfJDSphp5jQMT 7mMWgqCbbe5D6xMMtUT QfuWUargAzIDZoMtH0R PnoNE6lhd84LBHsJDR8 up2riABstSoarbGtqTC pVUxlX7AzOIYqi588EP JzN8PmICAzt1A5ofQaY gKkULGqkJU7wcC7XYEr YEc7rUOsxcN8jlVexYF zB4sqjR9uQPTyOR8klx gmo7rdLQqeMNljJQEvb BA8naE3WDWjnKKtU8Cu pH2dMRKlEHbxSUJotby 4HrUzMj7dvTXpoUhnRR xzYmtwYWdlXHBnbmNvb nRccGduZGVjXHBsYWlu XHBsYWluXGYwXGZzMjR lwNwxbFfgxV1wGyFbRe NaDNrqXN5kNGAjR2ewe PWrKHCcQXTgM4dkQvHd xJ6xeGsiPUoufkYdZRL 2IVhgh4amqrxczGHaof H4iKWsYyOpObE8TPmtz GFpblxmMVxmczIyXGxh nrilLFAjUZivT5ctElF kMPZfnDhsBQmgp0IlJD YxXGZzMjJccGFyfX0= Diagnosis (test code = 34) f6mudEVxELRkrZZ5TvW fUDUcv9ula0GhzNOycU OvPDaljDDfrgMtkq89b EV8dI72EX5kDELkWzA4 HUJstuG7Uth7KIFbNVD cnFVlG882x1fvp4rvum WjgUT2aLxmORUhjhfoP nX8XWctVQZerfieCFd3 OTquHUJngWJ7ILFgrMF zJ0WvCQGlWY4cvan0RK F4NVgcFSLiGaA7JTAfa YHaDKXqwEliBNgzo842 HOG8WgYsYKKxpiJyeMg mlB1yIiWgLBGMAlZhXR VtyWvsV1ZsVODkfH1dx 8m3QGycezTuBHf5BYUu P3uemofrlmVtp7IczB5 th2dmV0QrgXsgI36dw7 csbZGiuZO2wDKhPXLib eRzWOJdDNPhqPoxP9y3 aXNccGFyfQ== Gross Description (test u2vwnLQpCPAkyNBRJHt code = 8927264998) wMVxhbnNpXHNwbHRwZ3 WuapqdOTtkTS0kWS6ao YisvGXzlUJtCK0DXKTn ZmYxXHBhcGVydzEyMjQ yZPDsrDBzpZA2FDHbGY 1hcmdsMTgwMFxtYXJnc eL5IGIjyVCcL3PiMOBj XA4vfhqqRSK0UFzipD6 keoLREaxfIb1pxAOqcB tcZjFcZmNoYXJzZXQwX SKnoIozLOFpVEq9pW2P CiuhB64cz3F9Aqn6EDV bOBEqL7BvQT0xKBPvrE FqW71RVunyWYL9IFIMV ryzEQPpFI8Us6xdRTYi sMQnEKN2XGybbRHpZFW iMSKaWSk7CVJbAHxnzY GfZU3kmZwmAuljpJhap 2VjdCBcXGlkIDUxMDAy HSigVRNjHU2WLnCjICY 5TYYaORTpXFq6QWw6IV 8ESqYvOPVnXXK6AXE8P TLbKNr7DJtaCR5CIRSi JsTfLTM8CZSfFAFpFBW uWAk5EEAbKBlzWADqoJ FsIFxcZnMgMTAgXFxmY bZlGVJuXKeenmR6IHWy YWluXGJcZnMyMCBBOlx kCVNwSSaynJhpaZ4xMX OkE87rx9HKz5OmRC3DW Dj6snDtxilvuA7cDXIu wbXaFKziiWEnL7vdGzz hUoGaMqJiUCDRl18kyJ SodYLkPDAnj6QkXHd1a eAuD13xM1NwBPrjEDEt qeGzCTOewTylI6z0zVP 4ZIAbZRDsEMKeP57vAV Cien2nng68yqQdqfSht XVmjHBbAnOno7L1HOPi r4B5BPAnUXQzaCQjsum sGH32ARMqJTSuMN5wbP VkIHdpdGggcHJvYmFib MUgxNvexpCgkHG1ARJw NFubCDVfdCwgASt7ZTV 5El3byKEvHHXrhmGVAA 7mJBzwpt10KPM2h1igl WVsZHtcKlxmbGRpbnN0 IEhZUEVSTElOSyBuYW1 lPUxJTktCRUdJTnwyMT BqIlbjhQAVTLZ8MOthu YvjsPw4i9rkfOBol0s1 ZTghOTO6oViQs7lzmLZ xDLehCijioOLrmnS7UT kILSJEPQyDMrGeIF7zC ZqSRnbWZhS8FlYnJJL6 NDgBY7UPiLN2Kxg4GVl 8fXtcZmxkcnNsdCBcJz BDdL3tvEunoF6czFExA 2hcZnMyMCANClxlcGlj MhPevNDhDsXgbdW2AOY myZKnCVC2QL5eORVnga maVMKuMXAaESR0WOwez S14aFXgUODsDCIawZEm fVxwbGFpbiANClxzbC0 aLuQsx2nhoZm9YHVZWr napEBrrhkogmN5SVLhg 9bqbJmle0OioAJpQC6m rSrpiM0xDpExIeSSSj4 = Disclaimer (test code = s1ojkEHhRDSkpGUjHcB 9844) zYCLyYFPlq7mlCVBnbV FuZzEwMzNcZnRuYmpcd RVxIHNvJiMuh2gog581 pAGxt0meNGGuEuS9mVJ vZWAxfXWzM270RFKlUJ ncb6ubq7IbSQAsgIKxa 4Z6TILWeofxsJa8nSgb B94vb8E0QrveV7ooZIU sQJXfJ3UvSH6eHQUtFz e5JQH8LTQ4MRZqGSAkF 2BtZW3zIIRmzDCdQLp4 u0nozZffKCLwIKE9l5m fKRocseYzCN2pim7twN f3j7jkqzLbBVJbBJSwt WRLKOHbH1XhgJeuJh7v hUd5rBnaZttnMRE6Pbv 1KU0fny64abn0kMzhYK PpzhgnKhB8TJecXLZqj aywEXc0XRvnZWDmkFZ1 FVZstGMmS7OfQUOsQO0 xxuq1WOU0ZOruJLFzIf K1XMDogWMwRJWfkCtcS Ooka091GNR3VtSpEU3r H6Arj0N3rK6qzYGoAKP gyAFtNwTuWUUhbh4syY BgHVqwb0LyDRT0tiW1h KLrbIUgRHYvUL49Hufw k7XkPdmtVPM7PNIedvJ bc0Zjk8nqUuLxfaMwF4 zrF2VgUCXdTYWlGTVaB uIsvjYdn7Rdl0YnbADf aFc7j9rvCJHeAXMznIp zi4yrQCS1YFJjX5R0jJ Odb7prDZttAFAjfWJ3o mF3NYOroYCoQ5VkjY1z HFVzGX7wefj2l1jgQYN 4CIlvZPUcPmE4oqU2ZY BcaGVhZGVyeTcyMFxmb 079PFJ8KpUzLLZnz8Tb I4WnvHspV47zyOlbT70 xAAGgjOcfoJ5hhPqazF 5cZjBcZnMyNFxxbFxwb SRqibtnADzjqmA6SBra qpgsRJWpUSuvI4xtNvP wUWWyqFqwWKpcf9CzTX QiUYGbTwiqegQ4YAOZk 09lUQWny8MyCAOziO5k qIOlMGkophFkaLI8YZp hdmUgYmVlbiBkZXZlbG 5rBHOeAB0lBEFiffHtf z7cveNaQPFuEYAhJ7Gr cmlzdGljcyBkZXRlcm1 uddVjOPL9FTILHS6MTS ObBHKms48bVWBllGato S2qlMFdilFdSHAvf8Sg gR1bmIZZBFRhH6kdTB6 fHWztv4DetYFswKDujO K3NDLsb5WyUhJvucUcy TIolXBcB5WhdEwwG8tv IMCpWUYipfUzbQDwf6X iXCZphGO0cQXxBY2XQv TKm94uWLJhWBGEciTgS VWbnSbprNY7tfI7cZ2k LiBJZiBhcHBsaWNhYmx rIFTnu776ll1cyxA2LJ ZaGCBzcimwq2PwHCMhX MKlhP48HSQpNBDvfa1x ejtdeIMncqTaH6Sacyz 4tL0kISYjYYyfDZAfMK ZzMjJcbGFuZzEwMzNca GljaFxmMVxkYmNoXGYx UUkqM9ffIqPpKaCfRxe wYXJ9 [facility] 2021-10-22 15:30:07 Test Item Value Reference Range Interpretation Comments Submitted Clinical History y3mjrGGkEXQmc3nqGMD (test code = 34403) mbGFuZzEwMzNcZnRuYm pcdWMxIHtccnRmMVxzc 4IbW0LuCuEkSAakreNb XGRlZmxhbmcxMDMzXGZ 0bmJqXHVjMVxkZWZmMH bdBi8sfPMzfGhaMdLkT VZgx0zyzsLHlikajKr3 s3ixCCCbQaQ6vKQiYSn uV4rakqMltMYnROUfDN i8uF01KARhwP1bgYSbJ PbfegUxJgK5OOajXYYh RtT5LKKxdLMoLXVuD0p yZWQwXGdyZWVuMFxibH UsNON2bIuwn2C7nGOzx GVldHtcZjBcZnMyMiBO l9BoVRb4mYrjR6QaQFK ePgW3qKKaYJUpRKnmKY FgQUIvxtQ3tD46WBjai qN2vZWpy1Zwz83nw653 aT1ibCQeEUV1FJJoJYX aoCLtHFJhEJQ9NMQqgC NoY7ygUMFaQE2tmaoiU KjkWRjqPEMwmZK4ICWw xAMuZ8HoKMQmMBsjZAL herq6UwSyOc7fpNXnpI ttFBaaj1diq5nvlUTgB ou5IPDxSwApFlkyETeq a6Cym2ikGXSbhw6vURV 0gCBieAtdg3I0kAFzTE GyaEDaxjIaUWNfCeV7R OoqYW5gwt92KEJzIUS6 un7huIOzuPvjfeOsyXV nDTvyH1PzYRGxt083LS GxG1BcQBHtq9C8rgVqN lTbYBWsoAI3syQ0UWTk ZAq9tVSuwlE4poZixBB jK8fxxM7eGVSmEC9hwc bmu1umQYabCFepLSCfb JY5poP4XAKixIRjR9Vi qO2bPLYuXPxfPVUbokt 0NcAdRr2peXOnuFvoJN xzYmtwYWdlXHBnbmNvb nRccGduZGVjXHBsYWlu XHBsYWluXGYwXGZzMjR nhWicyKhfvD3eIfImTu JaFJkoKU1zGIVqN1maq JUtTEYaCTNpQ6fzSnOu zX7dvItlWVykpqAwFHT 7FPbpb9uvvhpmbKCadd P1bBPdJzWoGhP1NXeae GFpblxmMVxmczIyXGxh qzmkYYMkCJjuG2koDlC gNIKyjArtDPoxs1ErZS YxXGZzMjJccGFyfX0= Diagnosis (test code = 34) d3sklQBfMROdoAE0DlZ lRWEnz6mxi5TklJLygD UtAJakzXIyttRkuz56o GA3fA08ZR2rQWGaLxV9 DZGinuM2Zzp1XCFxYCC bmZEhI808g1bni1twta QnqEH5nCuuIOLxhhcmS jZ7ADheYBSifdvtNBa1 GNhfVNAijSP7AMElyJF bX4KcXZVtHE5lgkn3NF N8JIvaQZYuZrF4HFNqg HYqWJHwbLggESwzx615 FFZ8QjWkOLAmfgWigHp vsJ9sEfDcRMGGShFlGX OivXulK7IfGKHhrH2yv 9z6TApolxNhGOj7ECMz V7vcwfhoqoMei2YgjV3 bb1paN5MfqMqvI28jd6 gkxRSdsMA6qCEsFOOmg uNuJOCkFLFkzGquK4o8 aXNccGFyfQ== Gross Description (test p1jguZPyJEVnnMDPYJq code = [id number]) wMVxhbnNpXHNwbHRwZ3 BdfcryAWvmRH7wFC5qz AcwdJAkfSFrFY5EGCSc ZmYxXHBhcGVydzEyMjQ rTGFuwDEfzVH6HLIyOE 1hcmdsMTgwMFxtYXJnc nC2AJDzrNCoT4TbJLMu NA9susakIBO1CPzrzT6 lcpPKWjcfJo0xaNDstT tcZjFcZmNoYXJzZXQwX MGosOiaLRYiKXq5vJ0B NdfzA74ou1P6Kzh5WFI gXJOjQ7ShTS7gTFPvdJ NoM88HNtwcFTT1JCSSO lbjTJZyAE8Sb8smSTCs qKXkFOA8YPjgjVQsPXT jRJAuHRu0IIMqMFiriV GhZC3feTpeWuyysHdhf 2VjdCBcXGlkIDUxMDAy LUshLSIzWH8DQuRrWTI 7CKFcLVOdQEm8VBv0NR 3PQvRlRXWeDWA1PSJ1T ABlWDi6NSfzEM9EHXVq SrOqHAT1JFKzZKZrBUD eMOw2SEFbLAgpVLBamI FsIFxcZnMgMTAgXFxmY hIpRXYiAIlpdxQ3HUGu YWluXGJcZnMyMCBBOlx gCFKlJPnshEjdkK0wJI DoH31pr3DCb7KgVD1MV Hf2qaOcjymhgE9dSDNj mkTaKTjooFSvC2lrAku aKuMaLeYnDXASq30wwS RrvAQyLVQxf2BwESg3s pKiN44pN7QtWJmmSSSn stHnFTIclCxzU0i3zIM 3TBNkYIRjKITcG81xAR Snkk7ngo95xmIcnbInr BZpcBSjSkXuo7R0GCMi a2O3XUFhQBEbwQMflpd qBZ44DYQiSLUdUK2xrZ VkIHdpdGggcHJvYmFib TMhwJinkoBiwFX6SRLi TUguRVVfrLkuGHl4RYD 7Yi3fcZNrOXCokmBWAQ 2qGIqpiv36TPL3x2cdg WVsZHtcKlxmbGRpbnN0 IEhZUEVSTElOSyBuYW1 lPUxJTktCRUdJTnwyMT ZbPpcpqUBMJPH1DIqjp FnngDs7b6kiyRNhf3h9 TCenJQA8mIiTl5qbwVG pIKluFdphnHGlnpX9PI eHGHWFQOxMXxFyJN9oY DdSXjxDTrZ1WeXtOKJ3 GXvUV1BFlGG6Bbx9TJx 8fXtcZmxkcnNsdCBcJz IAmX8tcMpvoQ2dqJNeW 2hcZnMyMCANClxlcGlj TiZeoURhPeUxugW3BKB zyFTaGFU7XN1aIUSkky gaQFUsWFFyOLD5NRreu H87mVUwJDBdZFBoxBZj fVxwbGFpbiANClxzbC0 kDkSxn1rioSb8FUJOMc tjjJSavzqavlY3YKHlv 5dmnPczz9LjyQSoGB2w hGmrcC3vKrHbAoYYAg2 = Disclaimer (test code = r6opbEThWALuoMGdBgF 9844) fXEFaFNKuw4cyGKXsaN FuZzEwMzNcZnRuYmpcd ZOvJTSfZjAse9plq961 xKOfq7yfXNIyIzR7tHG rLJBbgRCjQ322VTBlVY fnl3roj2MtKXMalVLis 6A8IQZEbnxwjWe3xIxj V36zm0E0ZkagW7bkXQW tBVMwZ2KhTL7gVNFdGa h7OJL4BUV2VSOfDRUiG 4SsCR4mRNCdiGYoCAw1 v8tnyTzqHLMwQDQ2k0h qQJrypuKzFE1xix9peL e9a1wcbkLaPDByFUWkp OVJQYKqR4EvyObaEr3l cUb5zAdxCngfHEF6Chw 9DK8jbi24nil0uPlnAC JbssmoWvD9BUfkGSLhe qevBFx3PUjgARSxjWI7 HIAdtMJiQ8LpQKZbDO3 ocet9BZH3ORzuMSMdEz X5WRTvnFQqTXLzuYnsR Qlzf261IZB9DhSyYG9k X6Rhh2O0aR4tlLTnLOO wwNEzKqKxZTGwyd7tzW PlCWdvl9JgABX6raI6b AAudGRbHESlWI45Vgjs g2DtQzlpITT8LYZkzkS lk1Haz2tzNaGqhrVhB3 xrG1WoZEXxENNiVFEiO fYzwvZpc9Qfp6OkbYYb gMp0x0kkLGOrEUHsbXo ul6emOAF5ADYdL2T1tD Eho4xjJMgnZOHkjQH3a pG5QDOaeFIyY1ZrdK2d RZArPX6toew2w5ocBHZ 9UZsmXYYwLaS5ueS8FK BcaGVhZGVyeTcyMFxmb 687OQF2OyRiWQUsm0Fq Z5AsnTspP57vhKkzO20 zCWElxIprrJ6qwIpvbP 5cZjBcZnMyNFxxbFxwb ESwtxfmLVtucmL9FXkp bvthOSBmNRybQ4kaDuN hOEDetZfxRVuhg2XwNH ElKHKaBufhbnJ4HKPLe 47yESPns2AjAMEqiQ0t bDOjLNfvbeMxzIZ4UJk hdmUgYmVlbiBkZXZlbG 1vNHVhJK5lCIRsizBio d3lwcTnDCBbWZKiY0Hc cmlzdGljcyBkZXRlcm1 vcsNdPCL8OSUXSA9GHW OyBQUva23vBAAuoPzxy G6mzOXhpwIjEZVbl1Jy oF4vaLQRHAQnA6ahLK9 wDZuue7SjzZKuiMNttF V4KPGms0UmLlLxyzJem RCrsWGaG2YivHpuY0bh CXGgQSTroqJjaSPuq3U fUTWflBW4iPCjGB6SXl YJw20zKNClRDJFsmJyY QWkeAqviLK5gfR4aD8z LiBJZiBhcHBsaWNhYmx hQWGic702hc2nqkO9XY PwVGOeuxcjg1ZbAVAkI OPlkM97XYYlPZSpnc4z tqdziVNzmeLiS3Cbjjf 4qE5gBNUnFJqvBNRcLJ ZzMjJcbGFuZzEwMzNca GljaFxmMVxkYmNoXGYx YAjmK8mqJyXrMqWmCih wYXJ9 [facility] 2021-10-22 15:30:07 Test Item Value Reference Range Interpretation Comments Submitted Clinical History s9wmhJZbJVPnc8swBXN (test code = 14500) mbGFuZzEwMzNcZnRuYm pcdWMxIHtccnRmMVxzc 1RuW7GfHuFkWHcdjpCu XGRlZmxhbmcxMDMzXGZ 0bmJqXHVjMVxkZWZmMH fhEy5ijCIzzXqaItUaX MXjl2neogYNrdgjhFb4 l0svIPMpYdF7rGZbIGv jI3crcmIaqHAxEDZxTF b5iK11VCVmcN9dlESuA NvxtqXcQjD0UVwsNHTi WjM7XJTftDBbGNKnJ7i yZWQwXGdyZWVuMFxibH KnLJY7vMzfs0L1cBMik GVldHtcZjBcZnMyMiBO g1RbADy8uCifU0PwVVT iBlI5mABsLHZjWTwbEP WyCJMfwlC6mI70LQeie vJ1rWPfp0Omj84vm869 kS7ueKXuCEA6TDArVNE qxTHvWTXiZTO6OHUisB RhQ2acGAHcKN2zngyaS OmdHViaFCGivTN0UOCb xKCuJ6AdONHuEGqlLXF bthj5KoOiGp5xjOFbkK siXTora5clx9njuOQxB qz1STQyLdPeMvbdEEbg a8Ppy3bnVESdzj7qYJW 3zNUnxZmzm4Z5aFQzGJ BfeHWkelIdGHInXyI2P ZqyTU3vmk71VWMiVAI7 bh6yvEYqbQejoxSpgHP bHUbhX1CnIQFwe863GU XuT3SbKFRef7B6skQgB kPuFZHlaLW5irF6CZMg RRm1vVUggeH1mhImiBB zW1dcrU2oOSPhLW3xop kcj8fkJXpfAXnvIOGni OO9vnX0APJaeETpM1Yy mH1sOGQqDGanQJNsbap 6IzIiSs8ovEGxbZmbNR xzYmtwYWdlXHBnbmNvb nRccGduZGVjXHBsYWlu XHBsYWluXGYwXGZzMjR krPrneNzrbP6kJyAdUz OrESvxNR7rEEJkN7ctt FIdPZIpWGFaS5fhLxJd qD2yxFraLSzilwLlZRO 6SNhve2vshybfuBOyxa A4wVXnGdQzHtB0ALxzf GFpblxmMVxmczIyXGxh dyttYMJtDPvwP7jeKkG tTJHrvQsqNUllp3CjWS YxXGZzMjJccGFyfX0= Diagnosis (test code = 34) i8ivuZLwKDRreYI0SjL zXRPnn3xqi7ThhGLkgD LgNLfpjMXzwcUhqi59u NX3yK59LV1zYBPaFzG3 UWBuucK9Adm8NDYoOGI teRRyU450z6mjh9bjyk LmjKD8rEchCNLysshiK mZ2LSneIOKqstjeRRv4 TSkgTIHveES5OZMgsFC vF3QuPOBsZP8vauf7ZO P4SAgiXJXlBdB9HXAqm FKsPVTvjSvsKKgen539 SSZ6BjLcBQLjxqYmjMw zgY4sXvHdANMFWgKzTX RrrIfzS4JuFMAgxZ0pk 3u7HOknzeBmEBh0IVWi D6wnpujerwSnb6YroT6 ky7kyU2RpvAagS91zc2 proVNakYR7hQFdEVJvr kNmLRFtNYIzvDvaP3w3 aXNccGFyfQ== Gross Description (test k7pliOXuTJGirATAAOw code = [id number]) wMVxhbnNpXHNwbHRwZ3 IgmkvdKQoyYE6bYG8je PbdsXUkiINjZJ3GEUKd ZmYxXHBhcGVydzEyMjQ tHRTyqTRgoKQ7CIBvHO 1hcmdsMTgwMFxtYXJnc dK9FYGdsBDoE7OqUAXu SZ0kkwakPCI4QBiqsF4 rdyJTEpqzFc4opZPyoP tcZjFcZmNoYXJzZXQwX AHjvWivVCVxLLy4jH2Z MsrzN19pj5V3Jli2PVL lSEMdZ4CoRX3xHDHzvR NyI74EPxhrCIL1VXKXL gboGRNrSY3Wb3ziNABw wSGcQZG1NLxuzZDhUXD kLEDbVEt6RYOdPFfilQ BxYF4gkLmnEqhqaKspr 2VjdCBcXGlkIDUxMDAy QTfnXFMmRZ1HLuFjTKP 7EHPkEILhXAf3QPi0ZM 9AJoArTEGzDAU9GUJ7K VHsYXr7KIuhBZ6DXSGh RgPwSVW0GHDdKIFjHEP pUGj9SNOzYSeiWDIpgH FsIFxcZnMgMTAgXFxmY aXeYBTtKKacolZ7SZOo YWluXGJcZnMyMCBBOlx pQVNmUWcubTfrsT5pRK AgS29lw2PCn5DjHO9JV Th0qgMbxfujsQ4oHTBy yvCzKIvzsOHtM1xfGit vZwBtZuWzQKNMa13iiY FjgNLwFLVyj1MpRRy9r yUdB12tQ0HaJBzeNLDl amGhDNNanGynU9j8gSO 7ALDyCDZsPCVlU29oKE Mxlp3xph27yjDalfTvp GYvbWWiBzGqg1W8HQWm v4B7YVPpFEPzfJNgxqh vMI25OXOeISIdHB6pxZ VkIHdpdGggcHJvYmFib HXovAisuvOqyVD8AZTw TBdiXUNykAwoVSn5NJN 7Cv4ydDOqZMNpppWAMS 4xPCzyid02VYQ2z7skz WVsZHtcKlxmbGRpbnN0 IEhZUEVSTElOSyBuYW1 lPUxJTktCRUdJTnwyMT JkXwkmtPDBUQM4TAmmq WmkqYq8m4vfzWKrg0s1 GXapUEN6wJyKg5dfqLZ hOPzyIiqrpVIacaB8UB tMZDQPNSnESgDqPU5sC YhKUgoWBjI5UbTfWGY3 DDbHV2QFzIQ3Fer4KRn 8fXtcZmxkcnNsdCBcJz IQnK0xwVxdxY7wbNBbQ 2hcZnMyMCANClxlcGlj CtTpbUPbPxRlcpE2MER vsSTtXLW4IT7iYQQubq cbNSTuBFJcVWH3YXtoc O23qRIrPXNcFPZdcKKo fVxwbGFpbiANClxzbC0 vLtWjj8exeOi0JLDBDb bbvCNfnzclueF2KUYtd 3ijjVxcq6GqeYWuHL6t iJcgqA1xBlQmIwDOYx5 = Disclaimer (test code = d1bdgYJqWQFlzYDbRnF 9844) wQJLzPNTze0saEECrrE FuZzEwMzNcZnRuYmpcd YMzVEMqFmXyl6bxo448 yDBns3eaVLCiIaP4vGI pPAPpeFUhH535PCTvKM ojy0tip1XjNJEaaXZon 9Y6JUFSbizsjBg6qVzt S36fz8B8WfiaV0avLTZ eKEMgO0CfAU0uRCRnOg e1NGT8EYS8EVScFIXeS 6RtVL9mZPIurVLgJAb5 e5xkzUwoCVShVNB2p9k zSCqmiqWuVR0msg2yeJ g2b2huaeQuTDIwDHZzc WSNVURdO8AroPexBx3j lXb3jTycYdxoJJC5Tlj 5OS6xrt87bha3pLreEI YqosnwFvD1OCciZYEwd kegYFl2FKhvTFUhtRX8 HVMttSClI5VvHCBiIM7 hudx7WNA2PLftUSRwCg R9JKKzgRBrHDWvqCoxY Sohe007BGS8OzAyAC0s C2Koy3T0nA9abTNuDDE adISlEyXnJPDvml5prE DcXLjin7PgIET1tiK6p HJyjWKwJKUjJF73Dret m7DbIxnxPNU4GHBeyyR pp7Bem8ukHsEvxjWrR2 saZ4JjPSJpIINoENYqF bUjlxAhq6Myu0BwiWBw aVb9u0qeYDQmFCKxwJt uw4ypVVH7QLEmZ6H2eN Off0vbFGndWVNurHC4s sY5HGRhdBFfU6QhpF4n PCPrZC2jnzq0l7koKVQ 6OOtgBKUvXaP9guC8EU BcaGVhZGVyeTcyMFxmb 465OOZ5EvWrJVLdy9Av Z4LhjUyrB03jaXcsB43 gOVEzmKnrtG1qgWlrrB 5cZjBcZnMyNFxxbFxwb SArhctlIAvsdiW8SDcs ifqmRSHyEDfmB0qeHrN fVSJhzQrqWJyuu9PuBK YaNPNtUcgxfhE4MOEEr 15xCWXrq4CpEDVsuO8j sITdYIiydjObdKG2LSx hdmUgYmVlbiBkZXZlbG 3oCXKxXF7xDVTfasVkz b0tmlWgTYKrDCPwP0Xw cmlzdGljcyBkZXRlcm1 fcmHdUTJ7RAJCAH4KUJ LlVNPpf35yZGJcvElne M6wyWUudiMoQFQzl0Gm gU3bmGUTZLXjF8gnII5 tHMnfr6WpjVJkbKYzqP U6DJExg8EfBwWdypXcb JMbhAElY1HsdQcpF3hc ZFRlSVEhekMphIIah1D rZTOytHG7jQAeJK7CHe JZc10xIEQdTRPPlhNxE JDybRmovMC1spV3cY1b LiBJZiBhcHBsaWNhYmx rZMIfn194kr2pilU8IK XeZFHcpxvcb0FiBAUhR BDzrY69XUQaSEWpkv3v pduvhSDownPqC1Sunab 5mO2nCKDiIHpuRRItWB ZzMjJcbGFuZzEwMzNca GljaFxmMVxkYmNoXGYx ANfiH9ngJkAqCjVfXtu wYXJ9 [facility], [id number] 18:04:34 Test Item Value Reference Interpretation Comments [...] for thesemodifi cations were determined by [employer].If samp le result is greater than 50 0 pg/mL, physician may o rder atiter of the sample. Please contact [facility] if you wouldlike t o order a retest of this sample to obtain an actua l value.Samples a re held for 1 week after in itial testing date. Perf ormed At:[facility] gfti[address] [place] [address] 16674Pxmvkzelqm Director: Andi Taylor Ph.D ., BCLD (ABB)CLIA#: [id number] e: [Automated message] The sy stem which generated this result transmitted ref erence range: <=80. Th e reference range was not u sed to interpret this result as normal/abnormal . Lab Interpretation Abnormal (test code = 60630-5) [facility] Price2022-04-21 18:04:34 Test Item Value Reference Interpretation [...] for thesemodifi cations were determined by E [facility].If samp le result is greater than 50 0 pg/mL, physician may o rder atiter of the sample. Please contact [facility] if you wouldlike t o order a retest of this sample to obtain an actua l value.Samples a re held for 1 week after in itial testing date. Perf ormed At:[facility] arik[address]45 [address] [place] [address] [place] [address]Lyzzpmcvsq Director: Andi Taylor Ph.D ., YUSEF (MEETA)CLIA#: [id number] e: Lab Interpretation Abnormal (test code = 88782-1) [facility] Hospital[facility], [id number] 18:04:34 Test Item Value Reference Interpretation Comments [...] for thesemodifi cations were determined by E [facility].If samp le result is greater than 50 0 pg/mL, physician may o rder atiter of the sample. Please contact [facility] if you wouldlike t o order a retest of this sample to obtain an actua l value.Samples a re held for 1 week after in itial testing date. Perf ormed At:[facility] lyre33023 [address] [place] [address]Ioetxwbdlc Director: Andi Taylor Ph.D ., BCLD (ABB)CLIA#: [id number] e: Lab Interpretation Abnormal (test code = 91252-1) [facility]asantFungitell, Dajyt7074-18-26 18:04:34 Test Item Value Reference Interpretation Comments [...] for thesemodifi cations were determined by E [facility].If samp le result is greater than 50 0 pg/mL, physician may o rder atiter of the sample. Please contact [facility] [facility] if you wouldlike t o order a retest of this sample to obtain an actua l value.Samples a re held for 1 week after in itial testing date. Perf ormed At:[facility] myre45530 [address] [place] [address] 62217Moykkvwdfb Director: Andi Taylor Ph.D ., BCLD (ABB)CLIA#: [id number] e: Lab Interpretation Abnormal (test code = 40988-0) [facility]asantFungyasir, [id number] 18:04:34 Test Item Value Reference Interpretation Comments Range Fungitell S-V (test 101 pg/mL <80 H Interpr etation: The code = 9239) [facility]ungitell assay does not detect certain fungalspecies s uch as the genus Cryptococ cus (Marcelino moreno alYancy 1991) wh ichproduces very low levels [...] for thesemodifi cations were determined by E [facility].If samp le result is greater than 50 0 pg/mL, physician may o rder atiter of the sample. Please contact [facility] if you wouldlike t o order a retest of this sample to obtain an actua l value.Samples a re held for 1 week after in itial testing date. Perf ormed At:[facility] pluc45053 [address] StreetAsc[facility] Borg[facility] Hospitale [place] [address]Wpisedqbry Director: Andi Taylor Ph.D ., BCLD (ABB)CLIA#: [id number] e: Lab Interpretation Abnormal (test code = 68185-4) [facility] Price2022-04-21 18:04:34 Test Item Value Reference Interpretation [...] rder atiter of the sample. Please contact [facility] if you wouldlike t o order a retest of this sample to obtain an actua l value.Samples a re held for 1 week after in itial testing date. Perf ormed At:[facility] zwhn27501 [address] [place] [address] 53260Sqxiyrgwrk Director: Andi Taylor Ph.D ., BCLD (ABB)CLIA#: [id number] e: Lab Interpretation Abnormal (test code = 35887-0) [facility], [id number] 18:04:34 Test Item Value Reference Interpretation Comments [...] for thesemodifi cations were determined by E [facility].If samp le result is greater than 50 0 pg/mL, physician may o rder atiter of the sample. Please contact [facility] if you wouldlike t o order a retest of this sample to obtain an actua l value.Samples a re held for 1 week after in itial testing date. Perf ormed At:[facility] rdrz10303 [address] [place] [address] 056[address]Xgmwpsqbzc Director: Andi Taylor Ph.D ., BCLD (ABB)CLIA#: [id number] e: Lab Interpretation Abnormal (test code = 89521-4) [facility] Panel Path Review 2021-10-18 14:39:17RMP PRReviewed and Electronically signed by Pathologist:Mary Beth Parikh MD, PhD #[id number] [facility]ENTERUnOd[facility] CenterRespiratory PCR Panel Path Elspoe9507-21-28 14:39:17RMP PRReviewed and Electronically signed by Pathologist:Mary Beth Parikh MD, PhD #[id number] [facility]ENTERUnOd[facility] Medical CenterRespiratory PCR Panel Path [id number] 14:39:17RMP PRReviewed and Electronically signed by Pathologist:Mary Beth Parikh MD, PhD #[id number] [facility] Path Yhkqqi3475-25-22 14:39:17RMP PRReviewed and Electronically signed by Pathologist:Mary Beth Parikh MD, PhD #[id number] [facility] Path Review 2021-10-18 14:39:17RMP PRReviewed and Electronically signed by Pathologist:Mary Beth Parikh MD, PhD #[id number] [facility] Panel Path [id number] 14:39:17RMP PRReviewed and Electronically signed by Pathologist:Mary Beth Parikh MD, PhD #[id number] [facility]Res[facility] PCR Panel Path [id number] 14:39:17RMP PRReviewed and Electronically signed by Pathologist:Mary Beth Parikh MD, PhD #[id number] [facility]viewRespiratory PCR Panel, MOTOR ASSEMBLER [id number] 14:29:47 Test Item Value Reference Range Interpretation [...] 6203) Lab Interpretation (test code = Abnormal 05718-3) [facility] Panel, MOTOR ASSEMBLER Swab 2021-10-18 14:29:47 Test Item Value Reference [...] 6203) Lab Interpretation (test code = Abnormal 14924-2) [facility], MOTOR ASSEMBLER Swab 2021-10-18 14:29:47 Test Item Value Reference [...] 6203) Lab Interpretation (test code = Abnormal 17118-7) [facility], MOTOR ASSEMBLER Swab 2021-10-18 14:29:47 Test Item Value Reference [...] 6203) Lab Interpretation (test code = Abnormal 98157-6) [facility], MOTOR ASSEMBLER Swab 2021-10-18 14:29:47 Test Item Value Reference [...] 6203) Lab Interpretation (test code = Abnormal 24227-6) [facility], MOTOR ASSEMBLER Swab 2021-10-18 14:29:47 Test Item Value Reference [...] 6203) Lab Interpretation (test code = Abnormal 66485-9) [facility] Panel, MOTOR ASSEMBLER Swab 2021-10-18 14:29:47 Test Item Value Reference [...] 6203) Lab Interpretation (test code = Abnormal 90408-2) [facility] Glucose [id number] 11:58:24 Test Item Value Reference Interpretation Comments Range POC Glucose (test 196 mg/dL 70-99 H RN Notifie dCapillary code = 12298-0) blood sample s, e.g. obtained by fingerstick, [...] Capillary code = 9554) Performing Lab (test [facility] code = 95259) [facility] MD Marianela gustafson Clinical Lab, [address] [place] [address] 770 30; Maintenance Services Dispatcher: Aletha Arciniega MD Lab Interpretation Abnormal (test code = 09112-9) [facility] Glucose [id number] 11:58:24 Test Item Value Reference Interpretation Comments Range POC Glucose (test 196 mg/dL 70-99 H RN Notifie dCapillary code = 69010-1) blood sample s, e.g. obtained by fingerstick, [...] Capillary code = 9554) Performing Lab (test [facility] code = 71731) [facility] MD Marianela gustafson Clinical Lab, [address] [place] [address]; Maintenance Services Dispatcher: Aletha Arciniega MD Lab Interpretation Abnormal (test code = 00278-5) [facility] Glucose [id number] 11:58:24 Test Item Value Reference Interpretation Comments Range POC Glucose (test 196 mg/dL 70-99 H RN Notifie dCapillary code = 08513-0) blood sample s, e.g. obtained by fingerstick, [...] Capillary code = 9554) Performing Lab (test [facility] code = 15353) [facility] MD Marianela gustafson Clinical Lab, [address] [place] [address] 30; Maintenance Services Dispatcher: Aletha Arciniega MD Lab Interpretation Abnormal (test code = 05830-4) [facility] Glucose [id number] 11:58:24 Test Item Value Reference Interpretation Comments Range POC Glucose (test 196 mg/dL 70-99 H RN Notifie dCapillary code = 13819-0) blood sample s, e.g. obtained by fingerstick, [...] Capillary code = 9554) Performing Lab (test [facility] code = 63383) [facility] Marianela gustafson Clinical Lab, [address] [place] [address]; Maintenance Services Dispatcher: Aletha Arciniega MD Lab Interpretation Abnormal (test code = 42967-9) [facility] Glucose [id number] 11:58:24 Test Item Value Reference Interpretation Comments Range POC Glucose (test 196 mg/dL 70-99 H RN Notifie dCapillary code = 37504-3) blood sample s, e.g. obtained by fingerstick, [...] Capillary code = 9554) Performing Lab (test [facility] code = 41096) [facility] Marianela gustafson Clinical Lab, [address] [place] [address]; Maintenance Services Dispatcher: Aletha Arciniega MD Lab Interpretation Abnormal (test code = 62092-9) [facility] Glucose [id number] 11:58:24 Test Item Value Reference Interpretation Comments Range POC Glucose (test 196 mg/dL 70-99 H RN Notifie dCapillary code = 80317-8) blood sample s, e.g. obtained by fingerstick, [...] Capillary code = 9554) Performing Lab (test [facility] code = 60067) [facility] MD Marianela singletontod Clinical Lab, [address] [place] [address] 30; Maintenance Services Dispatcher: Aletha Arciniega MD Lab Interpretation Abnormal (test code = 61404-5) [facility] Glucose Epxznv8961-07-19 11:58:24 Test Item Value Reference Interpretation Comments Range POC Glucose (test 196 mg/dL 70-99 H RN Notifie dCapillary code = 28536-7) blood sample s, e.g. obtained by fingerstick, [...] Capillary code = 9554) Performing Lab (test [facility] code = 19276) [facility] Marianela gustafson Clinical Lab, [address] [facility] [place] [address] 30; Maintenance Services Dispatcher: Aletha Arciniega MD Lab Interpretation Abnormal (test code = 02408-8) [facility] [id number] 18:35:38 Test Item Value Reference Range Interpretation Comments Final Report (test No Methicillin resistant code = 8488) Staphylococcus aureus isolated. Path Review (test The results have been code = 8492) reviewed and electronically signed by Pathologist:Mary Beth Parikh MD, PhD #[id number] [facility] Buymfye0915-12-04 18:35:38 Test Item Value Reference Range Interpretation Comments Final Report (test No Methicillin resistant code = 8488) Staphylococcus aureus isolated. Path Review (test The results have been code = 8492) reviewed and electronically signed by Pathologist:Mary Beth Parikh MD, PhD #[id number] [facility] [id number] 18:35:38 Test Item Value Reference Range Interpretation Comments Final Report (test No Methicillin resistant code = 8488) Staphylococcus aureus isolated. Path Review (test The results have been code = 8492) reviewed and electronically signed by Pathologist:Mary Beth Parikh MD, PhD #[id number] [facility] Screening Hutohwy6319-93-63 18:35:38 Test Item Value Reference Range Interpretation Comments Final Report (test No Methicillin resistant code = 8488) Staphylococcus aureus isolated. Path Review (test The results have been code = 8492) reviewed and electronically signed by Pathologist:Mary Beth Parikh MD, PhD #[id number] [facility] Screening [id number] 18:35:38 Test Item Value Reference Range Interpretation Comments Final Report (test No Methicillin resistant code = 8488) Staphylococcus aureus isolated. Path Review (test The results have been code = 8492) reviewed and electronically signed by Pathologist:Mary Beth Parihk MD, PhD #[id number] [facility] Screening [id number] 18:35:38 Test Item Value Reference Range Interpretation Comments Final Report (test No Methicillin resistant code = 8488) Staphylococcus aureus isolated. Path Review (test The results have been code = 8492) reviewed and electronically signed by Pathologist:Mary Beth Parikh MD, PhD #[id number] [facility] Screening Elburef7616-15-21 18:35:38 Test Item Value Reference Range Interpretation Comments Final Report (test No Methicillin resistant code = 8488) Staphylococcus aureus isolated. Path Review (test The results have been code = 8492) reviewed and electronically signed by Pathologist:Mary Beth Parikh MD, PhD #[id number] [facility] T[facility] Vancomycin trough on 10/17/21@10:30AM. Nurse [...] is code = not availablefo r this 55730-3) sample. The donna e reported is the samplecollectio n date. Vanco Tr Dose 10/17/2021 Level, date, a nd time Date (test of previous dos e is code = not availablefo r this 76791-5) sample. The donna e reported is the samplecollectio n date. PAIGE (test Vancomycin trough on code = PAIGE) 10/17/21@10:30AM. Nurse please coordinate with lab to draw trough approximately 11 - 11.5hours after 10/16/21 evening vanco dose. Hold vancomycin doses if trough is greater than 20 and notify MD. Thanks! [facility] Vancomycin trough on 10/17/21@10:30AM. Nurse please [...] is code = not availablefo r this 09050-3) sample. The donna e reported is the samplecollectio n date. Vanco Tr Dose 10/17/2021 Level, date, a nd time Date (test of previous dos e is code = not availablefo r this 21603-6) sample. The donna e reported is the samplecollectio n date. PAIGE (test Vancomycin trough on code = PAIGE) 10/17/21@10:30AM. Nurse please coordinate with lab to draw trough approximately 11 - 11.5hours after 10/16/21 evening vanco dose. Hold vancomycin doses if trough is greater than 20 and notify MD. Thanks! [facility] Vancomycin trough on 10/17/21@10:30AM. Nurse please coordinate with lab to draw trough approximately 11 - 11.5hours after 10/16/21 evening vanco dose. Hold vancomycin doses if trough isgreater than 20 and notify . Thanks!2021-10-17 18:05:08 Test Item Value Reference Range Interpretation Comments Vanco Trough 6.0 See_Comment Toxic Trough Le lawernce: (test code = >20 mcg/mL [Aut omated 4092-3) message] The sy stem which generated this result transmit lakhwinder reference range : 5.0 - 20.0 mcg/mL. Th e reference range was not used to int erpret this result as normal/abnormal . Vanco Tr Dose See note Level, date, a nd time Time (test of previous dos e is code = not availablefo r this 60165-0) sample. The donna e reported is the samplecollectio n date. Vanco Tr Dose 10/17/2021 Level, date, a nd time Date (test of previous dos e is code = not availablefo r this 25688-0) sample. The donna e reported is the samplecollectio n date. PAIGE (test Vancomycin trough on code = PAIGE) 10/17/21@10:30AM. Nurse please coordinate with lab to draw trough approximately 11 - 11.5hours after 10/16/21 evening vanco dose. Hold vancomycin doses if trough is greater than 20 and notify . Thanks! [facility] Vancomycin trough on 10/17/21@10:30AM. Nurse [...] is code = not availablefo r this 45824-1) sample. The donna e reported is the samplecollectio n date. Vanco Tr Dose 10/17/2021 Level, date, a nd time Date (test of previous dos e is code = not availablefo r this 09327-5) sample. The donna e reported is the samplecollectio n date. PAIGE (test Vancomycin trough on code = PAIGE) 10/17/21@10:30AM. Nurse please coordinate with lab to draw trough approximately 11 - 11.5hours after 10/16/21 evening vanco dose. Hold vancomycin doses if trough is greater than 20 and notify MD. Thanks! [facility] Vancomycin trough on 10/17/21@10:30AM. Nurse [...] is code = not availablefo r this 61349-5) sample. The donna e reported is the samplecollectio n date. Vanco Tr Dose 10/17/2021 Level, date, a nd time Date (test of previous dos e is code = not availablefo r this 41923-6) sample. The donna e reported is the samplecollectio n date. PAIGE (test Vancomycin trough on code = PAIGE) 10/17/21@10:30AM. Nurse please coordinate with lab to draw trough approximately 11 - 11.5hours after 10/16/21 evening vanco dose. Hold vancomycin doses if trough is greater than 20 and notify MD. Thanks! [facility] Vancomycin trough on 10/17/21@10:30AM. Nurse [...] is code = not availablefo r this 63764-3) sample. The donna e reported is the samplecollectio n date. Vanco Tr Dose 10/17/2021 Level, date, a nd time Date (test of previous dos e is code = not availablefo r this 71746-2) sample. The donna e reported is the samplecollectio n date. PAIGE (test Vancomycin trough on code = PAIGE) 10/17/21@10:30AM. Nurse please coordinate with lab to draw trough approximately 11 - 11.5hours after 10/16/21 evening vanco dose. Hold vancomycin doses if trough is greater than 20 and notify . Thanks! [facility] Vancomycin trough on 10/17/21@10:30AM. Nurse please [...] is code = not availablefo r this 11573-1) sample. The donna e reported is the samplecollectio n date. Vanco Tr Dose 10/17/2021 Level, date, a nd time Date (test of previous dos e is code = not availablefo r this 58637-1) sample. The donna e reported is the samplecollectio n date. PAIGE (test Vancomycin trough on code = PAIGE) 10/17/21@10:30AM. Nurse please coordinate with lab to draw trough approximately 11 - 11.5hours after 10/16/21 evening vanco dose. Hold vancomycin doses if trough is greater than 20 and notify MD. Thanks! [facility] HospitalLegionella Urine Antigen Path [id number] 15:56:29Legionella Urine Antigen Path ReviewReviewed and Electronically signed by Pathologist:Mary Beth Charles, PhD #[id number] [facility]UnOd[facility] Medical CenterLegionella Urine Antigen Path Wabftw8947-19-04 15:56:29Legionella Urine Antigen Path ReviewReviewed and Electronically signed by Pathologist:Mary Beth Charles, PhD #[id number] [facility]Un[facility] Legionella Urine Antigen Path [id number] 15:56:29Legionella Urine Antigen Path ReviewReviewed and Electronically signed by Pathologist:Mary Beth Charles, PhD #[id number] [facility]ENTERUnOd[facility] Medical CenterLegionella Urine Antigen Path [id number] 15:56:29Legion[place] Urine Antigen Path ReviewReviewed and Electronically signed by Pathologist:Mary Beth Charles, PhD #[id number] [facility]ENTERUnOd[facility] Medical CenterLegionella Urine Antigen Path [id number] 15:56:29Leg[facility] Urine Antigen Path ReviewReviewed and Electronically signed by Pathologist:Mary Beth Charles, PhD #[id number] [facility]ENTERUnOd[facility] Medical CenterLegionella Urine Antigen Path [id number] 15:56:29Legionella Urine Antigen Path ReviewReviewed and Electronically signed by Pathologist:Mary Beth Charles, PhD #[id number] [facility] CenterLeg[facility] Urine Antigen Path [id number] 15:56:29Legion[place] Urine Antigen Path ReviewReviewed and Electronically signed by Pathologist:Mary Beth Charles, PhD #[id number] [facility] CenterProcalcitonin 2021-10-17 11:00:32Procalcitonin<0.04<=0.08 ng/mLUT [facility] SoutheastProcalcitonin2022-04-20 11:00:32Procalcitonin<0.04<=0.08 ng/mLUT [facility]Procalcitonin2022-04-20 11:00:32 Procalcitonin<0.04<=0.08 ng/mLUT [facility]Procalcitonin2022-04-20 11:00:32 Procalcitonin<0.04<=0.08 ng/mLUT [facility] SoutheastProcalcitonin2022-04-20 11:00:32 Test Item Value Reference Range Interpretation Comments Procalcitonin (test code <0.04 See_Comment Pro calcitonin > 2.00 = 73360-2) ng/mL: Procalci tonin levels above 2. 00 [...] d ilution as it exceeds t he public health specialist's recommended ching it. Caution should be exercised when interpreting nunez ch values and done in con junction with clinical c ontext. [Automated mess age] The system which ge nerated this result tra nsmitted reference range : <=0.08 ng/mL. The refe rence range was not u sed to interpret this result as normal/abnormal . [facility] HospitalProcalcitonin2022-04-20 11:00:32 Test Item Value Reference Range Interpretation Comments Procalcitonin (test code <0.04 See_Comment Pro calcitonin > 2.00 = 71942-7) ng/mL: Procalci tonin levels above 2. 00 [...] d ilution as it exceeds t he public health specialist's recommended ching it. Caution should be exercised when interpreting nunez ch values and done in [facility] with clinical c ontext. [Automated mess age] The system which ge nerated this result tra nsmitted reference range : <=0.08 ng/mL. The refe rence range was not u sed to interpret this result as normal/abnormal . [facility] HospitalProcalcitonin2022-04-20 11:00:32 Test Item Value Reference Range Interpretation Comments Procalcitonin (test code <0.04 See_Comment Pro calcitonin > 2.00 = 53001-0) ng/mL: Procalci tonin levels above 2. 00 [...] d ilution as it exceeds t he public health specialist's recommended ching it. Caution should be exercised when interpreting nunez ch values and done in con junction with clinical c ontext. [Automated mess age] The system which ge nerated this result tra nsmitted reference range : <=0.08 ng/mL. The refe rence range was not u sed to interpret this result as normal/abnormal . [facility] HospitalLegionella Urine Gregvnm4803-09-84 19:49:58 Test Item Value Reference Range Interpretation Comments Legionella Urine Antigen Negative Interpretation (test code = 5521272) [facility] HospitalLegionella Urine [id number] 19:49:58 Test Item Value Reference Range Interpretation Comments Legionella Urine Antigen Negative Interpretation (test code = 1997552) [facility] HospitalLegionella Urine [id number] 19:49:58 Test Item Value Reference Range Interpretation Comments Legionella Urine Antigen Negative Interpretation (test code = 7573557) [facility] HospitalLegionella Urine [id number] 19:49:58 Test Item Value Reference Range Interpretation Comments Legionella Urine Antigen Negative Interpretation (test code = 6609789) [facility] [facility] HospitalLegionella Urine Ebqfdcl3953-05-30 19:49:58 Test Item Value Reference Range Interpretation Comments Legionella Urine Antigen Negative Interpretation (test code = 5802077) [facility]ionella Urine Nzrstxf2091-17-45 19:49:58 Test Item Value Reference Range Interpretation Comments Legionella Urine Antigen Negative Interpretation (test code = 7474081) [facility] HospitalLegionella Urine Oaxizmw0832-48-16 19:49:58 Test Item Value Reference Range Interpretation Comments Legionella Urine Antigen Negative Interpretation (test code = 1557775) [facility] Antigen Path Cdsppy6870-29-27 18:06:35Streptococcal Urine Antigen Path ReviewReviewed and Electronically signed by Pathologist:Mary Beth Parikh MD, PhD #[id number] [facility]Un[facility] for Childrentreptococcal Urine Antigen Path Rgkaum3316-45-56 18:06:35Streptococcal Urine Antigen Path ReviewReviewed and Electronically signed by Pathologist:Mary Beth Parikh MD, PhD #[id number] [facility]Un[facility] Streptococcal Urine Antigen Path Rzujng8056-52-62 18:06:35Streptococcal Urine Antigen Path ReviewReviewed and Electronically signed by Pathologist:Mary Beth Parikh MD, PhD #[id number] [facility]ENTERUn[facility] for Childrentreptococcal Urine Antigen Path Tswmsy4697-59-77 18:06:35 Streptococcal Urine Antigen Path ReviewReviewed and Electronically signed by Pathologist:Mary Beth Parikh MD, PhD #[id number] [facility]ENTERUn[facility] for Childrentreptococcal Urine Antigen Path Review 2021-10-16 18:06:35Streptococcal Urine Antigen Path ReviewReviewed and Electronically signed by Pathologist:Mary Beth Parikh MD, PhD #[id number] [facility]ENTERUn[facility] for Childrentreptococcal Urine Antigen Path Vykwed3520-87-67 18:06:35Streptococcal Urine Antigen Path ReviewReviewed and Electronically signed by Pathologist:Mary Beth Parikh MD, PhD #[id number] [facility]ENTERUnOd[facility] Streptococcal Urine Antigen Path Ckfjba7128-23-25 18:06:35Streptococcal Urine Antigen Path ReviewReviewed and Electronically signed by Pathologist:Mary Beth Parikh MD, PhD #[id number] [facility]ENTERUnTexas [facility] for Childrentreptococcus pneumoniae Urine Seukdue8954-82-75 16:43:46 Test Item Value Reference Range Interpretation Comments Streptococcal Urine Antigen Negative Negative Interpretation (test code = 78478383) [facility]rapevinetreptococcus pneumoniae Urine Vsbadoi6055-51-15 16:43:46 Test Item Value Reference Range Interpretation Comments Streptococcal Urine Antigen Negative Negative Interpretation (test code = 65091995) [facility] Grapevinetreptococcus pneumoniae Urine Bvlslls5993-82-07 16:43:46 Test Item Value Reference Range Interpretation Comments Streptococcal Urine Antigen Negative Negative Interpretation (test code = 83989245) [facility] Grapevinetreptococcus pneumoniae Urine Mtqcaiy8581-11-44 16:43:46 Test Item Value Reference Range Interpretation Comments Streptococcal Urine Antigen Negative Negative Interpretation (test code = 10752067) [facility] Grapevinetreptococcus pneumoniae Urine Byhduab7537-65-77 16:43:46 Test Item Value Reference Range Interpretation Comments Streptococcal Urine Antigen Negative Negative Interpretation (test code = 03601522) [facility] Grapevinetreptococcus pneumoniae Urine Xnxtvou7711-12-74 16:43:46 Test Item Value Reference Range Interpretation Comments Streptococcal Urine Antigen Negative Negative Interpretation (test code = 71039488) [facility] Grapevinetreptococcus pneumoniae Urine Ufilhdl2840-51-65 16:43:46 Test Item Value Reference Range Interpretation Comments Streptococcal Urine Antigen Negative Negative Interpretation (test code = 57585835) [facility]rop[facility] ([facility])2021-10-15 18:48:52 Test Item Value Reference Range Interpretation Comments Troponin T (test code = 23 ng/L See_Comment H < 19 ng/L Suggest 28885-3) retest at 3 to 6 hours later [...] res ults. [Automated mess age] The system WHMSO[employer] generated this result transmitted ref erence range: <=18. Th e reference range was not used to int erpret this result as normal/abnormal . Lab Interpretation Abnormal (test code = 60954-9) [facility] ([facility])2021-10-15 18:48:52 Test Item Value Reference Range Interpretation Comments Troponin T (test code = 23 ng/L <=18 H < 19 ng/L Suggest 40812-7) retest at 3 to 6 hours later [...] ults. Lab Interpretation Abnormal (test code = 81635-7) [facility] HospitalT[facility] T ([facility])2021-10-15 18:48:52 Test Item Value Reference Range Interpretation Comments Troponin T (test code = 23 ng/L <=18 H < 19 ng/L Suggest 04972-4) retest at 3 to 6 hours later [...] ults. Lab Interpretation Abnormal (test code = 88587-7) [facility] ([facility])2021-10-15 18:48:52 Test Item Value Reference Range Interpretation Comments Troponin T (test code = 23 ng/L <=18 H < 19 ng/L Suggest 15006-2) retest at 3 to 6 hours later [...] ults. Lab Interpretation Abnormal (test code = 07481-4) [facility] ([facility])2021-10-15 18:48:52 Test Item Value Reference Range Interpretation Comments Troponin T (test code = 23 ng/L See_Comment H < 19 ng/L Suggest 26676-0) retest at 3 to 6 hours later [...] res ults. [Automated mess age] The system WHMSO[employer] generated this result transmitted ref erence range: <=18. Th e reference range was not used to int erpret this result as normal/abnormal . Lab Interpretation Abnormal (test code = 93189-9) [facility])2021-10-15 18:48:52 Test Item Value Reference Range Interpretation Comments Troponin T (test code = 23 ng/L See_Comment H < 19 ng/L Suggest 40673-3) retest at 3 to 6 hours later [...] res ults. [Automated mess age] The system WHMSO[employer] generated this result transmitted ref erence range: <=18. Th e reference range was not used to int erpret this result as normal/abnormal . Lab Interpretation Abnormal (test code = 19490-1) [facility])2021-10-15 18:48:52 Test Item Value Reference Range Interpretation Comments Troponin T (test code = 23 ng/L See_Comment H < 19 ng/L Suggest 90621-7) retest at 3 to 6 hours later [...] res ults. [Automated mess age] The system WHMSO[employer] generated this result transmitted ref erence range: <=18. Th e reference range was not used to int erpret this result as normal/abnormal . Lab Interpretation Abnormal (test code = 59337-7) [facility] HospitalLDH2022-[facility]-18 16:36:02 Test Item Value Reference Range Interpretation Comments LDH (test code = 247 U/L 135-225 H Results gre ater than 85787-1) 1651 U/L may no t be reliable due to matrix effect w ith extended diluti on as it exceeds the public health specialist's recommended ching it. Caution should be exercised when interpreting nunez ch values and done in conjunction [facility] clinical contex t. Lab Interpretation (test Abnormal code = 02710-7) [facility]LDH[facility]18 16:36:02 Test Item Value Reference Range Interpretation Comments LDH (test code = 247 U/L 135-225 H Results gre ater than 15550-4) 1651 U/L may no t be reliable due to matrix effect w ith extended diluti on as it exceeds the public health specialist's recommended ching it. Caution should be exercised when interpreting nunez ch values and done in conjunction [facility] clinical contex t. Lab Interpretation (test Abnormal code = 38627-3) [facility]LD[facility] 16:36:02 Test Item Value Reference Range Interpretation Comments LDH (test code = 247 U/L 135-225 H Results gre ater than 12781-2) 1651 U/L may no t be reliable due to matrix effect w ith extended diluti on as it exceeds the public health specialist's recommended ching it. Caution should be exercised when interpreting nunez ch values and done in conjunction [facility] clinical contex t. Lab Interpretation (test Abnormal code = 78162-8) [facility]LD[facility] 16:36:02 Test Item Value Reference Range Interpretation Comments LDH (test code = 247 U/L 135-225 H Results gre ater than 26331-9) 1651 U/L may no t be reliable due to matrix effect w ith extended diluti on as it exceeds the public health specialist's recommended ching it. Caution should be exercised when interpreting nunez ch values and done in conjunction [facility] clinical contex t. Lab Interpretation (test Abnormal code = 19138-5) [facility]LD[facility] 16:36:02 Test Item Value Reference Range Interpretation Comments LDH (test code = 247 U/L 135-225 H Results gre ater than 50093-8) 1651 U/L may no t be reliable due to matrix effect w ith extended diluti on as it exceeds the public health specialist's recommended ching it. Caution should be exercised when interpreting nunez ch values and done in conjunction [facility] clinical contex t. Lab Interpretation (test Abnormal code = 33115-4) [facility] 16:36:02 Test Item Value Reference Range Interpretation Comments LDH (test code = 247 U/L 135-225 H Results gre ater than 64403-2) 1651 U/L may no t be reliable due to matrix effect w ith extended diluti on as it exceeds the public health specialist's recommended ching it. Caution should be exercised when interpreting nunez ch values and done in conjunction [facility] clinical contex t. Lab Interpretation (test Abnormal code = 40216-2) [facility] 16:36:02 Test Item Value Reference Range Interpretation Comments LDH (test code = 247 U/L 135-225 H Results gre ater than 51776-6) 1651 U/L may no t be reliable due to matrix effect w ith extended diluti on as it exceeds the public health specialist's recommended ching it. Caution should be exercised when interpreting nunez ch values and done in conjunction wit clinical contex t. Lab Interpretation (test Abnormal code = 35129-2) [facility]NT[facility]Pro BNP (In-House)2021-10-15 16:31:03 Test Item Value Reference Range Interpretation Comments NT ProBNP (test code = 137 pg/mL See_Comment H [Aut omated message] 56329-1) The system WHMSO[employer] generated this result transmit lakhwinder reference range : <=125. The refe rence range was not u sed to interpret th is result as normal/abnormal . Lab Interpretation (test Abnormal code = 87730-5) [facility] ([facility])2021-10-15 16:31:03 Test Item Value Reference Range Interpretation Comments NT ProBNP (test code = 60888-1) 137 pg/mL <=125 H Lab Interpretation (test code = Abnormal 16619-1) [facility] ([facility])2021-10-15 16:31:03 Test Item Value Reference Range Interpretation Comments NT ProBNP (test code = 61259-5) 137 pg/mL <=125 H Lab Interpretation (test code = Abnormal 59880-4) [facility] ([facility])2021-10-15 16:31:03 Test Item Value Reference Range Interpretation Comments NT ProBNP (test code = 84704-6) 137 pg/mL <=125 H Lab Interpretation (test code = Abnormal 95438-9) [facility] ([facility])2021-10-15 16:31:03 Test Item Value Reference Range Interpretation Comments NT ProBNP (test code = 137 pg/mL See_Comment H [Aut omated message] 55783-7) The system WHMSO[employer] generated this result transmit lakhwinder reference range : <=125. The refe rence range was not u sed to interpret th is result as normal/abnormal . Lab Interpretation (test Abnormal code = 30896-8) [facility])2021-10-15 16:31:03 Test Item Value Reference Range Interpretation Comments NT ProBNP (test code = 137 pg/mL See_Comment H [Aut omated message] 72928-7) The system WHMSO[employer] generated this result transmit lakhwinder reference range : <=125. The refe rence range was not u sed to interpret th is result as normal/abnormal . Lab Interpretation (test Abnormal code = 64245-4) [facility] ([facility])2021-10-15 16:31:03 Test Item Value Reference Range Interpretation Comments NT ProBNP (test code = 137 pg/mL See_Comment H [Aut omated message] 06498-0) The system WHMSO[employer] generated this result transmit lakhwinder reference range : <=125. The refe rence range was not u sed to interpret th is result as normal/abnormal . Lab Interpretation (test Abnormal code = 39711-3) [facility] HospitalCreat[facility] Qbgeml4133-41-55 16:31:01 Test Item Value Reference Range Interpretation Comments CK (test code = 2157-6) 48 U/L 39-[address] [facility] HospitalCreat[facility] Gdagsu3790-64-63 16:31:01 Test Item Value Reference Range Interpretation Comments CK (test code = 2157-6) 48 U/L 39-[address] [facility] HospitalCreat[facility] Tcumse1445-71-69 16:31:01 Test Item Value Reference Range Interpretation Comments CK (test code = 2157-6) 48 U/L 39-[address] [facility] HospitalCreat[facility] Xsavma9581-82-41 16:31:01 Test Item Value Reference Range Interpretation Comments CK (test code = 2157-6) 48 U/L 39-[address] [facility] HospitalCreat[facility] Lmjeby7405-24-69 16:31:01 Test Item Value Reference Range Interpretation Comments CK (test code = 2157-6) 48 U/L 39-[address] [facility] HospitalCreat[facility] Waymly5649-48-11 16:31:01 Test Item Value Reference Range Interpretation Comments CK (test code = 2157-6) 48 U/L 39-[address] [facility] HospitalCreat[facility] Nalobm2554-54-68 16:31:01 Test Item Value Reference Range Interpretation Comments CK (test code = 2157-6) 48 U/L 39-[address] [facility] HospitalCKMB2022-04-18 16:31:00 Test Item Value Reference Range Interpretation Comments CK MB (test code = 2.2 ng/mL See_Comment [Automat ed message] The 55793-8) system which ge nerated this result tra nsmitted reference range : <=10.4. The reference r jose was not used to int erpret this result as normal/abnormal . [facility]2022-04-18 16:31:00 Test Item Value Reference Range Interpretation Comments CK MB (test code = 41104-8) 2.2 ng/mL <=10.4 [facility]2022-04-18 16:31:00 Test Item Value Reference Range Interpretation Comments CK MB (test code = 37438-5) 2.2 ng/mL <=10.4 [facility]2022-04-18 16:31:00 Test Item Value Reference Range Interpretation Comments CK MB (test code = 24504-2) 2.2 ng/mL <=10.4 [facility]2022-04-18 16:31:00 Test Item Value Reference Range Interpretation Comments CK MB (test code = 2.2 ng/mL See_Comment [Automat ed message] The 87700-2) system which ge nerated this result tra nsmitted reference range : <=10.4. The reference r jose was not used to int erpret this result as normal/abnormal . [facility] 16:31:00 Test Item Value Reference Range Interpretation Comments CK MB (test code = 2.2 ng/mL See_Comment [Automat ed message] The 96949-2) system which ge nerated this result tra nsmitted reference range : <=10.4. The reference r jose was not used to int erpret this result as normal/abnormal . [facility]2022-04-18 16:31:00 Test Item Value Reference Range Interpretation Comments CK MB (test code = 2.2 ng/mL See_Comment [Automat ed message] The 48580-8) system which ge nerated this result tra nsmitted reference range : <=10.4. The reference r jose was not used to int erpret this result as normal/abnormal . [facility] HospitalCOVID-[facility] (SARS-CoV-2) Fpasxrqihhgy-JY1278-51-18 16:04:24 Test Item Value Reference Range Interpretation Comments COVID19 Not Detected Not Detected (SARS-CoV-2) (test code = 00262-7) COVID19 SARS Inpatient Indication (test Admission code = 44794) Covid 19 Comment See Note The kacy S ARS-CoV-2 (test code = [place] [address]) use on the [facility] [employer] [...] sheet for patie nts provided by the public health specialist ([employer]) can be rev iewed at: https://www.fda .gov/m edia/939859/kunal nload. A fact sheet fo r Health Care pro viders is provided by the public health specialist ([employer]) and can be reviewed at: https://www.fda .gov/m edia/180528/kunal nload Results must be interpreted wit hin [...] is assay has been authorized by yevgen[facility] for use only un areli Emergency Use Authorization ( EUA) in laboratories that have been CLIA-certified to perform moderate-comple xity and high-comple xity tests. [facility] at [facility], CLIA Accreditation #[id number] and CAP Accreditation #[id number], verif ied the performance characteristics of this assay. Int ernal controls are us ed to monitor all sta ges of the test proces s. [facility] HospitalCOVID-[facility] (SARS-CoV-2) Rameydsswivu-PF1516-62-18 16:04:24 Test Item Value Reference Range Interpretation Comments COVID19 Not Detected Not Detected (SARS-CoV-2) (test code = 41097-7) COVID19 SARS Inpatient Indication (test Admission code = 09345) Covid 19 Comment See Note The kacy S ARS-CoV-2 (test code = [place] [address]) use on the [employer] [...] sheet for patie nts provided by the public health specialist ([employer]) can be rev iewed at: https://www.fda .gov/m edia/237703/kunal nload. A fact sheet fo r Health Care pro viders is provided by the public health specialist ([employer]) and can be reviewed at: https://www.fda .gov/m edia/531271/kunal nload Results must be interpreted wit hin [...] is assay has been authorized by [facility] for use only un areli Emergency Use Authorization ( EUA) in laboratories that have been CLIA-certified to perform moderate-comple xity and high-comple xity tests. [facility] at [facility], CLIA Accreditation #[id number] and CAP Accreditation #[id number], verif ied the performance characteristics of this assay. Int ernal controls are us ed to monitor all sta ges of the test proces s. [facility]COVID-[facility] (SARS-CoV-2) Fkhajpnxefot-TS8525-29-18 16:04:24 Test Item Value Reference Range Interpretation Comments COVID19 Not Detected Not Detected (SARS-CoV-2) (test code = 20632-6) COVID19 SARS Inpatient Indication (test Admission code = 87312) Covid 19 Comment See Note The kacy S ARS-CoV-2 (test code = [place] [address]) use on the [employer] [...] sheet for patie nts provided by the public health specialist ([employer]) can be rev iewed at: https://www.fda .gov/m edia/784284/kunal nload. A fact sheet fo r Health Care pro viders is provided by the public health specialist ([employer]) and can be reviewed at: https://www.fda .gov/m edia/184457/kunal nload Results must be interpreted wit hin [...] is assay has been authorized by [facility]ev[facility] for use only un areli Emergency Use Authorization ( EUA) in laboratories that have been CLIA-certified to perform moderate-comple xity and high-comple xity tests. [facility] at [facility], CLIA Accreditation #[id number] and CAP Accreditation #[id number], verif ied the performance characteristics of this assay. Int ernal controls are us ed to monitor all sta ges of the test proces s. [facility] (SARS-CoV-2) Vqrplswkzcox-YL5320-27-18 16:04:24 Test Item Value Reference Range Interpretation Comments COVID19 Not Detected Not Detected (SARS-CoV-2) (test code = 73715-0) COVID19 SARS Inpatient Indication (test Admission code = 66763) Covid 19 Comment See Note The kacy S ARS-CoV-2 (test code = [place] [address]) use on the [employer] [...] sheet for patie nts provided by the public health specialist ([employer]) can be rev iewed at: https://www.fda .gov/m edia/735043/kunal nload. A fact sheet fo r Health Care pro viders is provided by the public health specialist ([employer]) and can be reviewed at: https://www.fda .gov/m edia/911472/kunal nload Results must be interpreted wit hin [...] is assay has been authorized by [facility]ev[facility] for use only un areli Emergency Use Authorization ( EUA) in laboratories that have been CLIA-certified to perform moderate-comple xity and high-comple xity tests. [facility] at [facility], CLIA Accreditation #[id number] and CAP Accreditation #[id number], verif ied the performance characteristics of this assay. Int ernal controls are us ed to monitor all sta ges of the test proces s. [facility] (SARS-CoV-2) Dyhhxdtkfcrp-YA8170-07-18 16:04:24 Test Item Value Reference Range Interpretation Comments COVID19 Not Detected Not Detected (SARS-CoV-2) (test code = 95624-2) COVID19 SARS Inpatient Indication (test Admission code = 84410) Covid 19 Comment See Note The kacy S ARS-CoV-2 (test code = [place] [address]) use on the [employer] [...] sheet for patie nts provided by the public health specialist ([employer]) can be rev iewed at: https://www.fda .gov/m edia/302338/kunal nload. A fact sheet fo r Health Care pro viders is provided by the public health specialist ([employer]) and can be reviewed at: https://www.fda .gov/m edia/235820/kunal nload Results must be interpreted wit hin [...] assay has been authorized by [facility]evgeniy [facility] for use only un areli Emergency Use Authorization ( EUA) in laboratories that have been CLIA-certified to perform moderate-comple xity and high-comple xity tests. The [facility] at [facility], CLIA Accreditation #[id number] and CAP Accreditation #[id number], verif ied the performance characteristics of this assay. Int ernal controls are us ed to monitor all sta ges of the test proces s. [facility] (SARS-CoV-2) Zwrrydslxzys-[id number] 16:04:24 Test Item Value Reference Range Interpretation Comments COVID19 Not Detected Not Detected (SARS-CoV-2) (test code = 89616-6) COVID19 SARS Inpatient Indication (test Admission code = 03146) Covid 19 Comment See Note The kacy S ARS-CoV-2 (test code = [place] [address]) use on the [employer] [...] sheet for patie nts provided by the public health specialist ([employer]) can be rev iewed at: https://www.fda .gov/m edia/587115/knual nload. A fact sheet fo r Health Care pro viders is provided by the public health specialist ([employer]) and can be reviewed at: https://www.fda .gov/m edia/248830/kunal nload Results must be interpreted wit hin [...] is assay has been authorized by t [facility] for use only un areli Emergency Use Authorization ( EUA) in laboratories that have been CLIA-certified to perform moderate-comple xity and high-comple xity tests. The [facility] at [facility], CLIA Accreditation #[id number] and CAP Accreditation #[id number], verif ied the performance characteristics of this assay. Int ernal controls are us ed to monitor all sta ges of the test proces s. [facility] (SARS-[facility]-2) Xgajrbliqjri-[id number] 16:04:24 Test Item Value Reference Range Interpretation Comments COVID19 Not Detected Not Detected (SARS-CoV-2) (test code = 33419-5) COVID19 SARS Inpatient Indication (test Admission code = 35553) Covid 19 Comment See Note The kacy S ARS-CoV-2 (test code = [place] [address]) use on the xenia s [employer] [...] sheet for patie nts provided by the public health specialist ([employer]) can be rev iewed at: https://www.fda .gov/m edia/531963/kunal nload. A fact sheet fo r Health Care pro viders is provided by the public health specialist ([employer]) and can be reviewed at: https://www.fda .gov/m edia/806955/kunal nload Results must be interpreted wit hin [...] high-comple xity tests. The Microbiology Laboratory at [facility], CLIA Accreditation #[id number] and CAP Accreditation #[id number], verif ied the performance characteristics of this assay. Int ernal controls are us ed to monitor all sta ges of the test proces s. [facility]24 Test Item Value Reference Range Interpretation Comments aPTT (test code = 29.9 See_Comment [Automate d message] The 23358-1) system which ge nerated this result transmit lakhwinder reference range : 24.7 - 36.8 second(s). The reference range was not used to interpr et this result as paras l/abnormal. [facility] 15:47:24 Test Item Value Reference Range Interpretation Comments aPTT (test code = 29.9 See_Comment [Automate d message] The 34066-9) system which ge nerated this result transmit lakhwinder reference range : 24.7 - 36.8 second(s). The reference range was not used to interpr et this result as paras l/abnormal. [facility] 15:47:24 Test Item Value Reference Range Interpretation Comments aPTT (test code = 29.9 See_Comment [Automate d message] The 09019-5) system which ge nerated this result transmit lakhwinder reference range : 24.7 - 36.8 second(s). The reference range was not used to interpr et this result as paras l/abnormal. [facility] 15:47:24 Test Item Value Reference Range Interpretation Comments aPTT (test code = 29.9 See_Comment [Automate d message] The 44548-7) system which ge nerated this result transmit lakhwinder reference range : 24.7 - 36.8 second(s). The reference range was not used to interpr et this result as paras l/abnormal. [facility] 15:47:24 Test Item Value Reference Range Interpretation Comments aPTT (test code = 29.9 See_Comment [Automate d message] The 21492-8) system which ge nerated this result transmit lakhwinder reference range : 24.7 - 36.8 second(s). The reference range was not used to interpr et this result as paras l/abnormal. [facility] 15:47:24 Test Item Value Reference Range Interpretation Comments aPTT (test code = 29.9 See_Comment [Automate d message] The 59490-5) system which ge nerated this result transmit lakhwinder reference range : 24.7 - 36.8 second(s). The reference range was not used to interpr et this result as paras l/abnormal. [facility] 15:47:24 Test Item Value Reference Range Interpretation Comments aPTT (test code = 29.9 See_Comment [Automate d message] The 00850-8) system which ge nerated this result transmit lakhwinder reference range : 24.7 - 36.8 second(s). The reference range was not used to interpr et this result as paras l/abnormal. [facility] Time with [id number] 15:47:23 Test Item Value Reference Range Interpretation Comments PT (test code = 5902-2) 13.5 See_Comment [Au tomated message] The system [employer] generated this result transmitted ref erence range: 11.5 - 1 3.9 second(s). The reference range was not used to int erpret this result as normal/abnormal . INR (test code = 6301-6) 1.11 0.90-1.10 H Lab Interpretation (test Abnormal code = 00952-4) [facility] Time with [id number] 15:47:23 Test Item Value Reference Range Interpretation Comments PT (test code = 5902-2) 13.5 See_Comment [Au tomated message] The system [employer] generated this result transmitted ref erence range: 11.5 - 1 3.9 second(s). The reference range was not used to int erpret this result as normal/abnormal . INR (test code = 6301-6) 1.11 0.90-1.10 H Lab Interpretation (test Abnormal code = 76768-4) [facility] Time with [id number] 15:47:23 Test Item Value Reference Range Interpretation Comments PT (test code = 5902-2) 13.5 See_Comment [Au tomated message] The system [employer] generated this result transmitted ref erence range: 11.5 - 1 3.9 second(s). The reference range was not used to int erpret this result as normal/abnormal . INR (test code = 6301-6) 1.11 0.90-1.10 H Lab Interpretation (test Abnormal code = 24268-8) [facility] Time with [id number] 15:47:23 Test Item Value Reference Range Interpretation Comments PT (test code = 5902-2) 13.5 See_Comment [Au tomated message] The system [employer] generated this result transmitted ref erence range: 11.5 - 1 3.9 second(s). The reference range was not used to int erpret this result as normal/abnormal . INR (test code = 6301-6) 1.11 0.90-1.10 H Lab Interpretation (test Abnormal code = 43716-3) [facility] Time with [id number] 15:47:23 Test Item Value Reference Range Interpretation Comments PT (test code = 5902-2) 13.5 See_Comment [Au tomated message] The system [employer] generated this result transmitted ref erence range: 11.5 - 1 3.9 second(s). The reference range was not used to int erpret this result as normal/abnormal . INR (test code = 6301-6) 1.11 0.90-1.10 H Lab Interpretation (test Abnormal code = 82510-4) [facility] Time with [id number] 15:47:23 Test Item Value Reference Range Interpretation Comments PT (test code = 5902-2) 13.5 See_Comment [Au tomated message] The system [employer] generated this result transmitted ref erence range: 11.5 - 1 3.9 second(s). The reference range was not used to int erpret this result as normal/abnormal . INR (test code = 6301-6) 1.11 0.90-1.10 H Lab Interpretation (test Abnormal code = 89805-5) [facility] Time with [id number] 15:47:23 Test Item Value Reference Range Interpretation Comments PT (test code = 5902-2) 13.5 See_Comment [Au tomated message] The system [employer] generated this result transmitted ref erence range: 11.5 - 1 3.9 second(s). The reference range was not used to int erpret this result as normal/abnormal . INR (test code = 6301-6) 1.11 0.90-1.10 H Lab Interpretation (test Abnormal code = 44710-6) [facility] + COVID-19, Nasopharyngeal [id number] 01:19:11 Test Item Value Reference Range Interpretation [...] Not Detected Not Detected (test code = 52617-2) Human Metapneumovirus Not Detected Not Detected (test [...] Detected Not Detected Parapertussis (test code = 46768) Bordetella pertussis Not Detected Not Detected (test code = 4854) Chlamydiophila Not Detected Not Detected pneumoniae (test code = 5139) Mycoplasma pneumoniae Not Detected Not Detected (test code = 6203) PAIGE (test code = PAIGE) [employer] RP2.1 is a real-time, nested multiplexed polymerase chain reaction test designed to simultaneously identify nucleic acids from 22 different viruses and bacteria associated with respiratory tract infection, including SARS-CoV-2, from a single nasopharyngeal swab ([employer]ER) specimen obtained from individuals suspected of respiratory [...] that may not be detected by an [employer]CHO[employer]IATE TEACHER specimen. Internal controls are used to monitor [...] high-complexity tests. The Microbiology Laboratory at [facility], CLIA Accreditation #[id number] and CAP Accreditation #[id number], verified the performance characteristics of this assay. Microbiology Laboratory at [facility] performs the assay using the [employer]. Lab Interpretation Abnormal (test code = 48577-5) [facility] + COVID-19, Nasopharyngeal [id number] 01:19:11 Test Item Value Reference Range Interpretation Comments Adenovirus (test code = Not Detected Not Detected 2521) Coronavirus 229E (test Not Detected Not Detected code = 5349) Coronavirus HKU1 (test Detected Not Detected A code = 5350) Coronavirus NL63 (test Not Detected Not Detected code = 5351) Coronavirus OC43 (test Not Detected Not Detected code = 5352) COVID19 (SARS-CoV-2) Not Detected Not Detected (test code = 70804-0) Human Metapneumovirus Not Detected Not Detected (test [...] Detected Not Detected Parapertussis (test code = 80192) Bordetella pertussis Not Detected Not Detected (test [...] including SARS-CoV-2, from a single nasopharyngeal swab ([employer]IATE TEACHER) specimen obtained from individuals suspected of respiratory [...] that may not be detected by an [employer]ATE TEACHER specimen. Internal controls are used to monitor [...] high-complexity tests. The Microbiology Laboratory at [facility], CLIA Accreditation #[id number] and CAP Accreditation #[id number], verified the performance characteristics of this assay. Microbiology Laboratory at [facility] performs the assay using the [employer]. Lab Interpretation Abnormal (test code = 91915-8) [facility] COVID-19, Nasopharyngeal [id number] 01:19:11 Test Item Value Reference Range Interpretation [...] Not Detected Not Detected (test code = 44086-2) Human Metapneumovirus Not Detected Not Detected (test [...] Detected Not Detected Parapertussis (test code = 76312) Bordetella pertussis Not Detected Not Detected (test [...] including SARS-CoV-2, from a single nasopharyngeal swab ([employer] TEACHER) specimen obtained from individuals suspected of respiratory [...] that may not be detected by an [employer]CHO[employer] ASS[employer]IATE TEACHER specimen. Internal controls are used to monitor [...] high-complexity tests. The Microbiology Laboratory at [facility], CLIA Accreditation #[id number] and CAP Accreditation #[id number], verified the performance characteristics of this assay. Microbiology Laboratory at [facility] performs the assay using the [employer]. Lab Interpretation Abnormal (test code = 34082-1) [facility] COVID-19, Nasopharyngeal [id number] 01:19:11 Test Item Value Reference Range Interpretation Comments Adenovirus (test code = Not Detected Not Detected 1251) Coronavirus 229E (test Not Detected Not Detected code = 5349) Coronavirus HKU1 (test Detected Not Detected A code = 5350) Coronavirus NL63 (test Not Detected Not Detected code = 5351) Coronavirus OC43 (test Not Detected Not Detected code = 5352) COVID19 (SARS-CoV-2) Not Detected Not Detected (test code = 21290-0) Human Metapneumovirus Not Detected Not Detected (test [...] Detected Not Detected Parapertussis (test code = 62999) Bordetella pertussis Not Detected Not Detected (test code = 4854) Chlamydiophila Not Detected Not Detected pneumoniae (test code = 5139) Mycoplasma pneumoniae Not Detected Not Detected (test code = 6203) PAIGE (test code = PAIGE) [employer] RP2.1 is a real-time, nested multiplexed polymerase chain reaction test designed to simultaneously identify nucleic acids from 22 different viruses and bacteria associated with respiratory tract infection, including SARS-CoV-2, from a single nasopharyngeal swab ([employer]IATE TEACHER) specimen obtained from individuals suspected of respiratory [...] that may not be detected by an PRESCHO[employer] ASS[employer]IATE TEACHER specimen. Internal controls are used to monitor [...] high-complexity tests. The Microbiology Laboratory at [facility], CLIA Accreditation #[id number] and CAP Accreditation #[id number], verified the performance characteristics of this assay. Microbiology Laboratory at [facility] performs the assay using the [employer]. Lab Interpretation Abnormal (test code = 14479-1) [facility] COVID-19, Nasopharyngeal [id number] 01:19:11 Test Item Value Reference Range Interpretation Comments Adenovirus (test code = Not Detected Not Detected 9203) Coronavirus 229E (test Not Detected Not Detected code = 5349) Coronavirus HKU1 (test Detected Not Detected A code = 5350) Coronavirus NL63 (test Not Detected Not Detected code = 5351) Coronavirus OC43 (test Not Detected Not Detected code = 5352) COVID19 (SARS-CoV-2) Not Detected Not Detected (test code = 24171-1) Human Metapneumovirus Not Detected Not Detected (test [...] Detected Not Detected Parapertussis (test code = 36643) Bordetella pertussis Not Detected Not Detected (test [...] including SARS-CoV-2, from a single nasopharyngeal swab ([employer]IATE TEACHER) specimen obtained from individuals suspected of respiratory [...] that may not be detected by an PRESCHO[employer] ASS[employer]IATE TEACHER specimen. Internal controls are used to monitor [...] high-complexity tests. The Microbiology Laboratory at [facility], CLIA Accreditation #[id number] and CAP Accreditation #[id number], verified the performance characteristics of this assay. Microbiology Laboratory at [facility] performs the assay using the [employer]. Lab Interpretation Abnormal (test code = 67392-9) [facility] [id number] 13:32:30 Test Item Value Reference Range Interpretation Comments POC Crea (test 0.6 mg/dL 0.6-1.3 Medications, code = 17698-4) especially h ydroxyurea or supplements, such as [...] Normal eGF R >= 60 code = 22093-1) mL/min/1.73 m2 The eGFR is calcula lakhwinder [...] Normal eG FR >= 60 code = 53924-2) mL/min/1.73 m2 The eGFR is calcula lakhwinder [...] = 6672) Performing Lab [facility] [address] [place] [facility] (test code = [facility] [address]) Clinical Lab, [address] [facility] [place], [place] [address]; Maintenance Services Dispatcher: Aletha Arciniega MD [facility] [id number] 13:32:30 Test Item Value Reference Range Interpretation Comments POC Crea (test 0.6 mg/dL 0.6-1.3 Medications, code = 74613-6) especially h ydroxyurea or supplements, such as [...] Normal eGF R >= 60 code = 21090-1) mL/min/1.73 m2 The eGFR is calcula lakhwinder [...] Normal eG FR >= 60 code = 12206-7) mL/min/1.73 m2 The eGFR is calcula lakhwinder [...] Yes (test code = 6672) Performing Lab [facility] [address] [place] [facility] (test code = [facility] [address]) Clinical Lab, [address] [facility], [place], [place] [address]; Maintenance Services Dispatcher: Aletha Arciniega MD [facility] [id number] 13:32:30 Test Item Value Reference Range Interpretation Comments POC Crea (test 0.6 mg/dL 0.6-1.3 Medications, code = 03342-2) especially h ydroxyurea or supplements, such as [...] Normal eGF R >= 60 code = 01875-6) mL/min/1.73 m2 The eGFR is calcula lakhwinder [...] Normal eG FR >= 60 code = 20099-3) mL/min/1.73 m2 The eGFR is calcula lakhwinder [...] Yes (test code = 6672) Performing Lab [facility] (test code = [facility] [address]) Clinical Lab, [address] [place] [address]; Maintenance Services Dispatcher: Aletha Arciniega MD [facility] [id number] 13:32:30 Test Item Value Reference Range Interpretation Comments POC Crea (test 0.6 mg/dL 0.6-1.3 Medications, code = 67473-0) especially h ydroxyurea or supplements, such as [...] Normal eGF R >= 60 code = 39549-5) mL/min/1.73 m2 The eGFR is calcula lakhwinder [...] Normal eG FR >= 60 code = 47754-4) mL/min/1.73 m2 The eGFR is calcula lakhwinder using the CKD-E PI equation. The e GFR declines with a ge. eGFR <60 mL/min /1.73 m2 is considere d as "decreased" Thi s equation should only be used for pat ients 18 and older. According to e [employer] Kid[employer]'s dney Disease Outcome Quality Initiat ecci (KDOQI) classif ication and 2012 Kidney Disease [...] Yes (test code = 6672) Performing Lab [facility] (test code = [facility] [address]) Clinical Lab, [address] [place] [address], [place], [place] [address]; Maintenance Services Dispatcher: Aletha Arciniega MD [facility] [place]
[2023-04-08] MEDS ORDERED: ONDANSETRON 4 MG/2 ML VIAL ONE (07:49)
[2023-04-08] MEDS ORDERED: MORPHINE 4 MG/ML SYR ONE (07:49)
[2023-04-08 08:03] LABS: Absolute Lymphocytes (CBC) 1.3 K/uL (0.7-4.9); Hematocrit 39.3 % (39.6-49.0); Lymphocytes % 11.1 % (15.3-44.8); MCV 89.6 fL (80-100); MPV 7.5 fL (7.6-11.3); Platelets 193 thou/uL (152-406); Protime INR 0.98; RBC Red Blood Cell Count 4.39 M/uL (4.33-5.43)
[2023-04-08 08:23] LABS: Albumin 3.2 g/dL (3.4-5.0); Bilirubin Total 0.6 mg/dL (0.2-1.0); Protein, Total 7.2 g/dL (6.4-8.2); Troponin High Sensitivity 6.9 pg/mL (<58.9)
[2023-04-08 08:25] LABS: Potassium 4.1 mEq/L (3.5-5.1)
--- NOTE | 2023-04-08 08:46 | RAD REPORT ---
EXAM DESCRIPTION: CT - Angio Aorta For Dissection - 04/08/2023 8:28 am CLINICAL HISTORY: . Chest and abd pain COMPARISON: October 2022 CT chest and February 2022 CT chest TECHNIQUE: Computed tomography angiography of the chest, abdomen pelvis were obtained. 100 cc Isovue 370 was administered intravenously. Coronal and sagittal reconstruction were performed. MIP 3D reconstruction was performed All CT scans are performed using dose optimization technique as appropriate and may include automated exposure control or mA/KV adjustment according to patient size. FINDINGS: An aortic dissection is not seen. An aortic aneurysm is not displayed. The celiac, SMA and DAGO are patent . 6 centimeter right upper lobe opacification with cavity. The consolidation has decreased in size from February 2022. The cavitary component has increased measuring 2.3 centimeters. COPD Mild lingular opacities. A pericardial effusion is not seen. A pleural effusion is not noted. The liver,spleen, adrenals and kidneys demonstrate no significant abnormality. Chronic pancreatic duct dilatation Marked gallbladder distention with pericholecystic fluid. There no evidence diverticulitis. IMPRESSION: Negative for an aortic dissection. 6 centimeter right upper lobe opacifications with cavity probably infectious Marked gallbladder distention with pericholecystic fluid may indicate cholecystitis
--- NOTE | 2023-04-08 08:59 | RAD REPORT ---
EXAM DESCRIPTION: Batshevat Single View04/08/2023 8:15 am CLINICAL HISTORY: Chest pain COMPARISON: November 2022 FINDINGS: Right upper lobe consolidation containing a cavity without significant change. The lingular opacities without significant change. COPD. Heart is normal size IMPRESSION: Right upper lobe consolidation containing cavity lingular opacities without significant change probably infection COPD
--- NOTE | 2023-04-08 09:59 | ER ---
Nurse's Notes [facility] Name: Chato Moreno IV Age: 67 yrs Sex: Male : 1955 Arrival Date: 04/08/2023 Time: 07:20 Bed 7 Private MD: Diagnosis: Acute cholecystitis;Pneumonia, unspecified organism Presentation: 04/08 07:29 Chief complaint: Patient states: he is having pain in his abdomen, chest and left arm ap3 that started at approx 0330 this morning. patient reports the pain is described to be crushing pain, as a 10/10 on the pain scale. Coronavirus screen: At this time, the client does not indicate any symptoms associated with coronavirus-19. Ebola Screen: No symptoms or risks identified at this time. Initial Sepsis Screen: Does the patient meet any 2 criteria? HR > 90 bpm. Does the patient have a suspected source of infection? Yes: Acute abdominal pain. Risk Assessment: Do you want to hurt yourself or someone else? Patient reports no desire to harm self or others. Onset of symptoms was April 08, 2023 at 03:30. Care prior to arrival: Medication(s) given: ASA, 81 mg, x 4, Normal saline infusion, 500 mL, IV initiated. 20 GA, in the right antecubital area. 07:29 Method Of Arrival: EMS: [facility] [place] [place] [facility] ap3 07:37 Acuity: STEWART 3 ap3 Triage Assessment: 07:34 General: Appears uncomfortable, Behavior is cooperative, anxious. Pain: Complains of ap3 pain in chest, abdomen and left arm Pain currently is 10 out of 10 on a pain scale. Pain began 4 hours ago. Aggravated by breathing, coughing. Neuro: Level of Consciousness is awake, alert, obeys commands, Oriented to person, place, time, situation. Cardiovascular: Patient's skin is warm and dry. Respiratory: Airway is patent Respiratory effort is even, unlabored, Respiratory pattern is regular, symmetrical, patient wears home oxygen. patient reports he was wearing 5 liters of oxygen via nasal canula at home. GI: Reports upper abdominal pain. Historical: - Allergies: 07:32 No Known Allergies; ap3 - Home Meds: 07:32 midodrine Oral 5 tabs [Active]; memantine 10 mg oral tablet [Active]; pantoprazole oral ap3 [Active]; amitriptyline 25 mg oral tablet [Active]; Eliquis 5 mg Oral tablet 2 times per day [Active]; - PMHx: 07:32 Atrial fibrillation; COPD; Emphysema; Lung Cancer; Pneumonia; ap3 - Immunization history:: Client reports receiving the 2nd dose of the Covid vaccine. - Social history:: Smoking status: Patient reports the use of cigarette tobacco products, denies chronic smoking, but will smoke occasionally, Patient uses alcohol, occasionally. - Family history:: not pertinent. - Hospitalizations: : No recent hospitalization is reported. Screenin:37 [facility] ED Fall Risk Assessment (Adult) History of falling in the last 3 months, ap3 including since admission No falls in past 3 months (0 pts) Confusion or Disorientation No (0 pts). Abuse screen: Denies threats or abuse. Nutritional screening: No deficits noted. Tuberculosis screening: No symptoms or risk factors identified. Assessment: 08:16 Reassessment: Patient and/or family updated on plan of care and expected duration. Pain ap3 level reassessed. Patient is alert, oriented x 3, equal unlabored respirations, skin warm/dry/pink. 13:06 Reassessment: Attempting to call report to [facility], on hold 12 minutes. . aa5 13:30 Reassessment: Report given to nurse Shanthi at [facility]. . aa5 Vital Signs: 07:29 BP 117 / 74; Pulse 100; Resp 22; Pulse Ox 100% on 2 lpm NC; Pain 10/10; ap3 07:43 Temp 97.7; jl7 08:13 BP 105 / 69; Pulse 88; Pulse Ox 100% on 2 lpm NC; ap3 10:11 Weight 41 kg; Height 5 ft. 6 in. ; jl7 10:37 BP 95 / 66; Pulse 84; Pulse Ox 100% on 2 lpm NC; ap3 11:05 BP 90 / 63; Pulse 80; Pulse Ox 100% ; ap3 13:43 BP 103 / 71; Pulse 79; Pulse Ox 100% on R/A; ap3 10:11 Body Mass Index 14.59 (41.00 kg, 167.64 cm) jl7 07:29 Pain Scale: Adult ap3 ED Course: 07:27 Patient arrived in ED. ds4 07:27 Shashank eMtz MD is Attending Physician. rn 07:29 Ada Gotti, ELLA is Primary Nurse. ap3 07:35 Initial lab(s) drawn, by me, sent to lab. Inserted saline lock: 22 gauge in left jl7 antecubital area, using aseptic technique. Blood collected. 07:37 Arm band placed on right wrist. ap3 07:37 Patient has correct armband on for positive identification. Placed in gown. Bed in low ap3 position. Call light in reach. Side rails up X2. groundwater monitoring technician on. Pulse ox on. NIBP on. Door closed. Noise minimized. Warm blanket given. 07:38 Triage completed. ap3 07:48 EKG done, by ED staff, reviewed by Shashank Metz MD. ap3 08:16 XRAY Chest (1 view) In Process Unspecified. EDMS 08:30 CT Aorta for Dissection In Process Unspecified. EDMS 09:58 Favian Alexandre MD is Hospitalizing Provider. rn 10:12 initiated transfer to [facility]. bd 10:38 US Abdomen Limited In Process Unspecified. EDMS 11:41 ED physician to see patient. ap3 12:53 pt accepted in transfer to [facility] by dr larios, admin approval given by tiara Lagunaspt going to [phone]. Administered Medications: 07:43 Drug: Ondansetron IVP 4 mg IVP once; over 2 minutes Route: IVP; Site: left antecubital; jl7 08:17 Follow up: Response: No adverse reaction ap3 07:43 Drug: morphine IVP or IV 4 mg IVP once over 4 mins Route: IVP; Infused Over: 4 mins; jl7 Site: left antecubital; 08:17 Follow up: Response: No adverse reaction; Pain is decreased ap3 10:07 Drug: Piperacillin-Tazobactam IVPB 3.375 grams IVPB once over 60 mins; (mix in NS 100 ap3 mL) Route: IVPB; Infused Over: 60 mins; Site: left antecubital; 11:39 Follow up: IV Status: Completed infusion ap3 12:15 Drug: NS 0.9% IV 1000 ml IV at 1000 ml once Route: IV; Rate: 1000 ml; Site: left ap3 antecubital; 12:41 Drug: midodrine 5 mg PO once Route: PO; ap3 Outcome: 09:59 Decision to Hospitalize by Provider. rn 10:15 ER care complete, transfer ordered by . rn 14:47 Patient left the ED. aa5 Signatures: Dispatcher [employer] EDMS Tena Jane Roman, MD MD rn Calderon, Queenie RN RN aa5 Aurelio Garay4 Puma Ramos RN RN jl7 Ada Gotti RN RN ap3
--- NOTE | 2023-04-08 09:59 | EDPHYS ---
Physician Documentation [facility] Name: Chato Moreno IV Age: 67 yrs Sex: Male : 1955 Arrival Date: 04/08/2023 Time: 07:20 Bed 7 Private MD: ED Physician Shashank Metz HPI: 04/08 07:57 This 67 yrs old Male presents to ER via EMS with complaints of Pain All Over. rn 07:57 The patient presents with abdominal pain in the upper abdomen. Onset: The rn symptoms/episode began/occurred this morning, at 03:00. The symptoms radiate to chest. Associated signs and symptoms: Pertinent negatives: nausea and vomiting, diarrhea, fever, vomiting. The symptoms are described as achy, sharp. Modifying factors: The symptoms are alleviated by nothing, the symptoms are aggravated by breathing deeply. Severity of pain: At its worst the pain was moderate in the emergency department the pain is unchanged. The patient has not experienced similar symptoms in the past. The patient has not recently seen a physician. Patient reports that at 3 AM today he started having upper abdominal pain that radiates into the chest. No shortness of breath no fever. No illness. No trauma or fall. Reports ran out of his AG&Pis 5 days ago. Has a history of atrial fibrillation. Denies any history of aneurysm.. Historical: - Allergies: 07:32 No Known Allergies; ap3 - Home Meds: 07:32 midodrine Oral 5 tabs [Active]; memantine 10 mg oral tablet [Active]; pantoprazole oral ap3 [Active]; amitriptyline 25 mg oral tablet [Active]; Eliquis 5 mg Oral tablet 2 times per day [Active]; - PMHx: 07:32 Atrial fibrillation; COPD; Emphysema; Lung Cancer; Pneumonia; ap3 - Immunization history:: Client reports receiving the 2nd dose of the Covid vaccine. - Social history:: Smoking status: Patient reports the use of cigarette tobacco products, denies chronic smoking, but will smoke occasionally, Patient uses alcohol, occasionally. - Family history:: not pertinent. - Hospitalizations: : No recent hospitalization is reported. ROS: 07:57 Constitutional: Negative for fever, chills, and weight loss, Eyes: Negative for injury, rn pain, redness, and discharge, Neck: Negative for injury, pain, and swelling, Cardiovascular: Positive for chest pain Respiratory: Negative for shortness of breath, cough, wheezing Abdomen/GI: Positive for abdominal pain MS/Extremity: Negative for injury and deformity, Skin: Negative for injury, rash, and discoloration, Neuro: Negative for headache, weakness, numbness, tingling, and seizure, Exam: 07:57 Constitutional: Thin male, appears in pain Head/Face: Normocephalic, atraumatic. pattern keeper: Tachycardic, regular. Respiratory: Mild tachypnea. Faint expiratory wheezing. No retractions. Abdomen/GI: Soft, tender left side of abdomen without rebound or peritoneal signs. No distention. MS/ Extremity: Pulses equal, no cyanosis. Neuro: Awake and alert, GCS 15 12:06 ECG was reviewed by the Attending Physician. rn Vital Signs: 07:29 BP 117 / 74; Pulse 100; Resp 22; Pulse Ox 100% on 2 lpm NC; Pain 10/10; ap3 07:43 Temp 97.7; jl7 08:13 BP 105 / 69; Pulse 88; Pulse Ox 100% on 2 lpm NC; ap3 10:11 Weight 41 kg; Height 5 ft. 6 in. ; jl7 10:37 BP 95 / 66; Pulse 84; Pulse Ox 100% on 2 lpm NC; ap3 11:05 BP 90 / 63; Pulse 80; Pulse Ox 100% ; ap3 13:43 BP 103 / 71; Pulse 79; Pulse Ox 100% on R/A; ap3 10:11 Body Mass Index 14.59 (41.00 kg, 167.64 cm) jl7 07:29 Pain Scale: Adult ap3 MDM: 07:28 Patient medically screened. rn 09:57 Differential diagnosis: bowel obstruction, cholecystitis, Cholelithiasis, rn diverticulitis, gastritis, gastroesophageal reflux disease, non-specific abd pain, pancreatitis, Peptic Ulcer Disease, pneumonia. Data reviewed: vital signs, nurses notes, lab test result(s), EKG, radiologic studies, CT scan, plain films, and as a result, I will admit patient. Consideration of Admission/Observation Patient was admitted/placed on observation. Escalation of care including admission/observation considered. Management of patient was discussed with the following: Hospitalist: . Independent interpretation of the following test(s) in the Emergency Department EKG: See my EKG interpretation above X-Ray: My interpretation is Chest x-ray images with possible right upper lobe pneumonia per my interpretation. Counseling: I had a detailed discussion with the patient and/or guardian regarding the historical points, exam findings, and any diagnostic results supporting the discharge/admit diagnosis, lab results, radiology results, the need for further work-up and treatment in the hospital. Response to treatment: the patient's symptoms have markedly improved after treatment, and as a result, I will admit patient. 10:14 Management of patient was discussed with the following: Numerical Control Operator: Dr Sexton requests furnace installer for higher level of care given active cavitary pneumonia and thinks needs gallbladder decompression with IR and we do not have IR here.. ED course: Transfer initiated for hospitalist care, interventional radiology, general surgery consultation. 04/08 07:29 Order name: CBC with Diff; Complete Time: 09:32 rn 04/08 07:29 Order name: CMP; Complete Time: 09:32 rn 04/08 07:29 Order name: Lipase; Complete Time: 09:32 rn 04/08 07:29 Order name: Basic Metabolic Panel rn 04/08 07:29 Order name: NT PRO-BNP; Complete Time: 09:32 rn 04/08 07:29 Order name: PT-INR; Complete Time: 08:16 rn 04/08 07:29 Order name: Troponin HS; Complete Time: 09:32 rn 04/08 10:12 Order name: SARS RAPID; Complete Time: 11:24 bd 04/08 12:01 Order name: Basic Metabolic Panel EDNM 04/08 12:01 Order name: CBC with Automated Diff EDNM 04/08 12:01 Order name: Lipid Profile EDNM 04/08 07:29 Order name: XRAY Chest (1 view); Complete Time: 09:32 rn 04/08 07:29 Order name: CT Aorta for Dissection; Complete Time: 09:32 rn 04/08 09:56 Order name: US Abdomen Limited; Complete Time: 11:23 rn 04/08 07:29 Order name: EKG; Complete Time: 07:30 rn 04/08 07:29 Order name: IV Saline Lock; Complete Time: 07:35 rn 04/08 07:29 Order name: Labs collected and sent; Complete Time: 07:35 rn 04/08 07:29 Order name: Cardiac monitoring; Complete Time: 07:38 rn 04/08 07:29 Order name: EKG - Nurse/Tech; Complete Time: 07:44 rn 04/08 07:29 Order name: O2 Per Protocol; Complete Time: 07:34 rn 04/08 07:29 Order name: O2 Sat Monitoring; Complete Time: 07:34 rn EC:06 Rate is 93 beats/min. Rhythm is regular. QRS [place] is Normal. [place] interval is shortened rn at 98 msec. QRS interval is normal. QT interval is normal. No Q waves. T waves are Normal. No ST changes noted. Clinical impression: NSR w/ Non-specific ST/T Changes. Interpreted by me. Reviewed by me. Administered Medications: 07:43 Drug: Ondansetron IVP 4 mg IVP once; over 2 minutes Route: IVP; Site: left antecubital; jl7 08:17 Follow up: Response: No adverse reaction ap3 07:43 Drug: morphine IVP or IV 4 mg IVP once over 4 mins Route: IVP; Infused Over: 4 mins; jl7 Site: left antecubital; 08:17 Follow up: Response: No adverse reaction; Pain is decreased ap3 10:07 Drug: Piperacillin-Tazobactam IVPB 3.375 grams IVPB once over 60 mins; (mix in NS 100 ap3 mL) Route: IVPB; Infused Over: 60 mins; Site: left antecubital; 11:39 Follow up: IV Status: Completed infusion ap3 12:15 Drug: NS 0.9% IV 1000 ml IV at 1000 ml once Route: IV; Rate: 1000 ml; Site: left ap3 antecubital; 12:41 Drug: midodrine 5 mg PO once Route: PO; ap3 Disposition Summary: 04/08/23 10:15 Transfer Ordered Notes: Transfer Location: [facility] rn Reason: Higher level of care rn Condition: Stable(04/08/23 10:15) rn Problem: new(04/08/23 10:15) rn Symptoms: have improved(04/08/23 10:15) rn Accepting Physician: (04/08/23 14:47) aa5 Diagnosis - Acute cholecystitis(04/08/23 10:15) rn - Pneumonia, unspecified organism(04/08/23 10:15) rn Forms: - Medication Reconciliation Form rn - SBAR form rn Signatures: Dispatcher [employer] EDShashank Jackson MD MD rn Calderon, Audri, RN RN aa5 Puma Ramos RN RN jl7 Ada Gotti, RN RN ap3 Corrections: (The following items were deleted from the chart) : 09:59 Inpatient Admission rn rn 10: 09:59 Favian Alexandre rn rn : 09:59 Telemetry/MedSurg (Inpatient) rn rn : 09:59 Stable rn rn 10: 09:59 new rn rn : 09:59 have improved rn rn : 09:59 Standard rn rn : 09:59 rn rn : 09:59 Acute cholecystitis rn rn : 09:59 Pneumonia, unspecified organism rn rn 14:47 10:15 rn aa5
[2023-04-08] MEDS ORDERED: NA CHLORIDE 0.9% 100 ML ONE (10:11)
[2023-04-08] MEDS ORDERED: PIPERACIL/TAZO 3.375 GM VIAL IV ONE (10:12)
--- NOTE | 2023-04-08 11:22 | RAD REPORT ---
EXAM DESCRIPTION: US - Abdomen Exam Limited - 04/08/2023 10:43 am CLINICAL HISTORY: Abdominal pain. COMPARISON: CT April 08, 2023 FINDINGS: Mild gallbladder distention. Small amount of sludge is present the gallbladder. Gallstone is not visualized. Gallbladder wall normal thickness. Pericholecystic fluid is present. Common bile duct upper limits no rmal at 6 millimeters IMPRESSION: Mild gallbladder distention Pericholecystic fluid can be seen with acalculous cholecystitis and should be correlated clinically
[2023-04-08 11:23] LABS: SARS-CoV-2 Antigen Rapid Res Negative (Negative)
--- NOTE | 2023-04-08 11:39 | EKG ---
Test Date: 2023-04-08 Test Time: 07:42:35 Dental Manager: ALP MEASUREMENT RESULTS: Intervals: Rate: 93 CO: 98 QRSD: 74 QT: 356 QTc: 442 [place]: P: 46 CO: 98 QRS: 36 T: 58 INTERPRETIVE STATEMENTS: Sinus rhythm with short CO Otherwise normal ECG Compared to ECG 11/24/2022 15:56:00 Short CO interval now present Electronically Signed On 04-08-23 11:37:51 CDT by Larry Aly
[2023-04-08] MEDS ORDERED: ALBUTEROL 2.5 MG/3 ML NEB SOL NEB PRN (11:57)
[2023-04-08] MEDS ORDERED: ONDANSETRON 4 MG/2 ML VIAL IV PRN (11:57)
[2023-04-08] MEDS ORDERED: ACETAMINOPHEN 500 MG TAB PO PRN (11:57)
[2023-04-08 12:16] VITALS: O2SAT 100
[2023-04-08] MEDS ORDERED: NA CHLORIDE 0.9% 1,000 ML IV SCH (12:43)
[2023-04-08] MEDS ORDERED: ENOXAPARIN 40 MG/0.4 ML SQ SCH (13:00)
[2023-04-08] MEDS ORDERED: MIDODRINE HCL 5 MG TABLET PO ONE (13:00)
[2023-04-08 15:13] VITALS: TEMP 97.7
[2023-04-08 15:17] VITALS: BP 103/71
[2023-04-08] MEDS ORDERED: PIPER TAZO 3.375 GM in NA CHLORIDE 0.9% 100 ML IV SCH (17:00)
== END 2023-04-08 14:47 | disposition short-term general hospital (02) ==
LOC: ER 07:20
DX: K81.0 Acute cholecystitis (principal); J18.9 Pneumonia, unspecified organism; F17.210 Nicotine dependence, cigarettes, uncomplicated; J44.9 Chronic obstructive pulmonary disease, unspecified; I48.91 Unspecified atrial fibrillation; Z79.01 Long term (current) use of anticoagulants; Z20.822 Contact with and (suspected) exposure to COVID-19
CPT/HCPCS: 96365; 93005; 85025; 36415; 85610; 84484; 83690; 80053; 83880; 71275; 74175; 71045; 76705; 96375; 99285; 96366; 87811; Q9967; J2543; J2405; J7030

== ENCOUNTER 2023-05-11 10:51 | Emergency (ER) | payer OTHER ==
--- OUTSIDE RECORDS SUMMARY | 2023-05-11 10:55 | XMS REPORT | Clinical Summary ---
:1955 Author Organization [facility] Address [address] [place] [address] Care Team Providers Name Role Phone Carl Jones MD Unavailable Henrique Plasencia MD Primary Care Provider Kang Piedra MD Unavailable Mary Beth Hinson [facility] [employer] Unavailable Unavailable Clay Hernandez MD Unavailable Kang [...] 1 tablet 60 tablet 0 06/07/202201/29 phen ([place]) 5 mg-325 by mouth every 023 mg per 8 (eight) hours tabletIndications: as needed for Small cell carcinoma, moderate pain NOS of upper lobe, for up to 30 lung <Right> days. Eliquis 5 mg tablet Take 1 tablet 0 09/02/202201/22 Discontinued (5 mg) by mouth 023 (Reo rder) twice daily. Active Problems Problem Noted Date Diagnosed Date Anemia in malignant neoplastic disease 10/16/2021 Swallowing painful 10/15/2021 Overview: Added automatically from request for rosa maria shah [id number] Community acquired pneumonia 09/03/2021 Small cell carcinoma of lung 05/17/2021 Overview: Added automatically from request for rosa maria shah [id number] Family education about pain management 05/08/2021 History of radiation therapy 02/16/2021 Pressure-induced deep tissue damage of other site 01/05/2021 Overview: Site: Coccyx Sepsis 01/04/2021 Pulmonary embolism 11/17/2020 Stage 1 pressure ulcer of other site 11/14/2020 Overview: 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 Tube feeding diet 10/21/2020 Pneumonia due to other Gram-negative bacteria 10/19/2020 Sequelae of hyperalimentation 10/08/2020 Adverse effect of glucocorticoids and synthetic analogues Current use of insulin 09/19/2020 Anxiety disorder due to a general medical condition 09/14/19 Disorder of fluid AND/OR electrolyte 09/04/2020 Sinus tachycardia 09/04/2020 Pleuritic pain 08/25/2020 Anemia of chronic disease 08/21/2020 Acute and chronic respiratory failure with hypoxia Failure to thrive 08/21/2020 Other severe protein-calorie malnutrition 08/11/2020 Dyspnea 08/10/2020 Decompensated COPD with acute exacerbation 07/30/2020 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/2020 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 04/21/2020 Last Assessment & Plan: Formatting of th [...] disorder with mixed anxiety and depressed mood Chronic pain due to malignant neoplastic disease Slow transit constipation Other psychological or physical stress, not elsewhere classi fied Personal history of COVID-19 Encounters Date Type Department Care Team Description 04/22/2023 Orders Only Thoracic [facility] - [facility], Small cell Medical Oncology SHANNEN Douglas carcinoma, NOS of [address] upper lobe, lung Main Bldg, 9th <Right> (Prim donte Floor Dx) [place] [address] 03/31/2023 Telemedicine Thoracic Center - Олег Clark 2:00 PM CDT Medical Oncology SHANNEN Douglas carcinoma of upper [address] lobe of right lung Main Bldg, 9th [place] [address] 03/28/2023 Orders Only Thoracic Center - Henrique Plasencia Medical Oncology MD Nickie carcinoma of upper [address] lobe of right lung Main Bldg, 9th (Primary Dx) [place] [address] 03/26/2023 Telephone [facility] - [facility] Medical Oncology Lisa Ann RN [address] Main Bldg, 9th [place] [address] 03/17/2023 Telemedicine Thoracic Center - Олег Clark 10:00 AM CDT Medical Oncology SHANNEN Douglas carcinoma, NOS of [address] upper lobe, lung Main Bldg, 9th <Right> [place] [address] 03/16/2023 Orders Only [facility] Center - Amber Medical Oncology SHANNEN Douglas [address] Main Bldg, 9th [place] [address] 03/10/2023 Orders Only [facility] Center - Amber Small kvng Medical Oncology SHANNEN Douglas carcinoma, NOS of [address] upper lobe, lung Main Bldg, 9th <Right> (Prim donte Floor Dx) [place] [address] 03/06/2023 Orders Only [facility] - Олег Clark Medical Oncology SHNANEN Douglas carcinoma, NOS of [address] upper lobe, lung Main Bldg, 9th <Right> (Prim donte Floor Dx) [place] [address] 03/06/2023 Nurse Triage Aletha Barfield PHYSICIAN C, VICE PRESIDENT OF 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 ENGINEERING [address] [place] [address] 01/22/2023 Follow-Up [facility] - Henrique Plasencia 4:00 PM CDT Medical Oncology MD Nickie carcinoma, NOS of [address] upper lobe, lung Main Bldg, 9th <Right> [place] [address] 01/22/2023 Hospital Encounter Diagnostic Adrian, Small benita l carcinoma, NOS of upper lobe, lung <Right> 9:13 AM CDT Laboratory Center LUCA Jarrett Discharge Disposition: Home - 01/22/[address] 11:59 PM CDT Main Bldg, [place] [address] 01/22/[address] IMAGING Adrian, Small cell carcinoma, NOS of upper lobe, lung <Right> 8:25 AM CDT [address] LUCA Jarrett Discharge Disposition: Home - 01/22/2023 Main Bldg, 3rd 9:12 [place] [address] 01/22/2023 Travel 01/08/2023 Telephone [facility] - Daisy Shaffer Medical Oncology Veronique, RN [address] Main Bldg, 9th [place] [address] 12/25/2022 Telephone [facility]acic Center - Enriqeuta Gonzalez Medical Oncology Desiree, RN [address] Main Bldg, 9th [place] [address] 12/24/2022 Telephone [facility] - [facility] Medical Oncology Lisa Ann RN [address] Main Bldg, 9th Floor Elevator B [place] [id number] 12/20/2022 Telephone [facility] - Zulema Cedillo RN Medical Oncology [address] Main Bldg, 9th [place] [address] 12/14/2022 Documentation [facility]acic Center - Henrique Plasencia Medical Domenico Fu MD [address] Main Bldg, 9th Floor Elevator B [place] [id number] 12/13/2022 Orders Only Thoracic Center - Adrian Small cell Medical Oncology LUCA Jarrett carcinoma, NOS of [address] upper lobe, lung Main Bldg, 9th <Right> (Prim donte Floor Dx) [place] [address] 11/19/2022 Orders Only Thoracic Center - Alex Amor Medical Oncology PharmD [address] Main Bldg, 9th [place] [address] 09/13/2022 Follow-Up [facility] - Henrique Plasencia ell 11:30 AM CDT Medical Oncology MD Nickie carcinoma, NOS of [address] upper lobe, lung Main Bldg, 9th <Right> [place] [address] 09/13/[address] Imaging Олег Clark 8:35 AM CDT [address] SHANNEN Douglas carcinoma, NOS of [facility], 7th upper lobe, lung Floor <Right> [place] [address] 09/13/2022 Hospital Encounter Diagnostic Luis Angel Henrique Denney cell carcinoma, NOS of upper lobe, lung <Right> 7:30 AM CDT Laboratory Center MD Nickie Discharge Disposition: Home - 09/13/[address] 11:59 [place] [address] 09/13/2022 Orders Only Thoracic Center - Олег Clark cell Medical Oncology SHANNEN Douglas carcinoma, NOS of [address] upper lobe, lung Main Bldg, 9th <Right> (Prim donte Floor Dx) [place] [address] 09/13/2022 Travel 09/05/2022 Orders Only [facility] - Amber Small cell Medical Oncology SHANNEN Douglas carcinoma, NOS of [address] upper lobe, lung Main Bldg, 9th <Right> (Prim donte Floor Dx) [place] [address] 08/29/2022 Telephone [facility]acic Center - Liz Akhtar Shortn ess of Breath Medical social work coordinator (/) [address] Main Bldg, 9th [place] [address] 06/19/2022 Orders Only Thoracic Center - Henrique Plasencia Medical Oncology MD Nickie [address] Main Bldg, 9th [place] [address] 06/07/2022 Follow-Up [facility] - Henrique Plasencia c ell 12:00 PM [facility] Medical Oncology MD Nickie carcinoma, NOS of [address] upper lobe, lung Main Bldg, 9th <Right> [place] [address] 06/07/2022 Hospital Encounter Diagnostic Олег Clark benita l carcinoma, NOS of upper lobe, lung <Right> 9:35 AM [facility] Laboratory Center SHANNEN Douglas Discharge Disposition: Home - 06/07/[address] 11:59 [place] [address] 06/07/2022 Ancillary Procedure PET Imaging Amber Small cell 7:00 AM [facility] [address] SHANNEN Douglas carcinoma, NOS of [facility], 6th upper lobe, lung Floor <Right> [place] [address] 06/07/2022 Orders Only Thoracic Center - Rahel Clark APRN [address] Main Bldg, 9th [place] [address] 06/07/2022 Orders Only [facility]acic Center - Henrique Plasencia Medical Oncology MD Nickie [address] Main Bldg, 9th [place] [address] 06/07/2022 Travel after 05/11/2022 Immunizations Name Administration Dates Next Due Bamlanivimab 07/29/2020 () Influenza Split High Dose Preservative 03/29/2020 Free IM Pneumococcal Polysaccharide 03/24/2022 Zoster Recombinant 03/29/2020 remdesivir 08/22/2020, 08/22/2020, 08/21/2020, 08/20/2020, 08/19/2020, 08/18/2020, 08/03/2020, 08/02/2020, 08/02/2020, 08/01/2020, 07/31/2020, 07/30/2020 Surgical History Surgery Date Site/Laterality Comments HI EGD BALLOON DILATION 09/29/2020 Esophagus/N/A Procedur e: UPPER ESOPHAGUS <30 MM DIAM GASTROINTE STINAL ENDOSCOPY WITH BALLOON DILATION OF ESOPHAGUS; Surgeon: Owen real MD; Location: MAIN E NDOSCOPY; Service: GASTROE NTEROLOGY HI EGD PERCUTANEOUS 09/29/2020 Abdomen/N/A Procedure: U PPER PLACEMENT GASTROSTOMY TUBE GASTR OINTESTINAL ENDOSCOPY WITH DIRECTED PLACEME NT OF PERCUTANEOUS (PE G) GASTROSTOMY TUBE; Surgeon: Desiree Leonard MD; Location: MAIN E NDOSCOPY; Service: GASTROE NTEROLOGY HI BRNCHSC W/BRNCL ALVEOLAR 10/23/2020 N/A Proc edure: FLEXIBLE LAVAGE BRONCHOSCOPY WIT H BRONCHIAL ALVEOLAR LAVAGE; Surgeon: Krys Brewer MD; Lo cation: MAIN PULM PROC; Servi ce: PULMONARY HI PERQ REPLACEMENT GTUBE 05/21/2021 N/A Proced ure: REPLACEMENT OF NOT REQ REVJ GSTRST TRC GASTROST RANDEE TUBE, PERCUTANEOUS, INCLUDES REMOVAL , WHEN PERFORMED, WITHO UT IMAGING OR ENDOSCOPIC DENNIS NCE; NOT REQUIRING REVISI ON OF GASTROSTOMY TRAC T; Surgeon: Neha Tobin MD ; Location: MAIN ENDOSCOPY; Service: GASTROENTEROLOGY HI EGD TRANSORAL BIOPSY 10/19/2021 Esophagus/N/A Procedur e: [...] vodka daily 15 years alcohol) ago Sex and Gender Information Value Date Recorded Sex Assigned at Not on file Gender Identity Male 03/02/2020 6:14 PM C DT Sexual Orientation Straight 03/02/2020 6:14 PM C DT Job Start Date Occupation Industry Not on file Not on file Not on file Obstetrics History Last Filed Vital Signs Vital Sign Reading Time Taken Comments Blood Pressure 104/65 01/22/2023 2:19 PM CDT Pulse 66 01/22/2023 2:19 PM CDT Temperature 36.5 C (97.7 F) 01/22/2023 2:19 PM CDT Respiratory Rate 17 01/22/2023 2:19 PM CDT Oxygen Saturation 96% 01/22/2023 2:19 PM CDT Inhaled Oxygen Concentration - - Weight 44.8 kg (98 lb 12.3 oz) 01/22/2023 2:19 PM CDT Height 163 cm (5' 4.17") 06/07/2022 7:11 AM [facility] Body Mass Index 16.86 06/07/2022 7:11 AM [facility] Plan of Treatment Health Maintenance Due Date [...] ALKALINE PHOSPHATASE Routine 01/22/2023 9:24 Small cell Res ults for this AM CDT carcinoma, NOS of procedure are in upper lobe, lung the results <Right> section. ALBUMIN LEVEL Routine 01/22/2023 9:24 Small cell Results for this AM CDT carcinoma, NOS of procedure are in upper lobe, lung the results <Right> section. CALCIUM LEVEL Routine 01/22/2023 9:24 Small cell Results [...] upper lobe, lung the results <Right> section. DIFFERENTIAL Routine 01/22/2023 9:24 Small cell Results for this AM CDT carcinoma, NOS of procedure are in upper lobe, lung the results <Right> section. .CBC Routine 01/22/2023 9:24 Small cell Results for [...] lung the results <Right> section. CALCIUM LEVEL Routine 09/13/2022 8:10 Small cell Results [...] upper lobe, lung the results <Right> section. DIFFERENTIAL Routine 09/13/2022 8:10 Small cell Results for this AM CDT carcinoma, NOS of procedure are in upper lobe, lung the results <Right> section. .CBC Routine 09/13/2022 8:10 Small cell Results for [...] 9:54 Small cell Results for this AM [facility] carcinoma, NOS of procedure are in upper lobe, lung the results <Right> section. FRACTIONATED BILIRUBIN Routine 06/07/2022 9:54 Small cell Re sults for this AM [facility] carcinoma, NOS of procedure are in upper lobe, lung the results <Right> section. TOTAL PROTEIN Routine 06/07/2022 9:54 Small cell Results for this AM [facility] carcinoma, NOS of procedure are in upper lobe, lung the results <Right> section. ASPARTATE Routine 06/07/2022 9:54 Small cell Results for this AMINOTRANSFERASE AM [facility] carcinoma, NOS of proced ure are in upper lobe, lung the results <Right> section. ALANINE AMINOTRANSFERASE Routine 06/07/2022 9:54 Small cell Results for this AM [facility] carcinoma, NOS of procedure are in upper lobe, lung the results <Right> section. ALKALINE PHOSPHATASE Routine 06/07/2022 9:54 Small cell Resu lts for this AM [facility] carcinoma, NOS of procedure are in upper lobe, lung the results <Right> section. ALBUMIN LEVEL Routine 06/07/2022 9:54 Small cell Results for this AM [facility] carcinoma, NOS of procedure are in upper lobe, lung the results <Right> section. CALCIUM LEVEL Routine 06/07/2022 9:54 Small cell Results for this AM [facility] carcinoma, NOS of procedure are in upper lobe, lung the results <Right> section. .GLOMERULAR FILTRATION Routine 06/07/2022 9:54 Small cell Re sults for this RATE AM [facility] carcinoma, NOS of procedure are in upper lobe, lung the results <Right> section. SERUM CREATININE Routine 06/07/2022 9:54 Small cell Results for this AM [facility] carcinoma, NOS of procedure are in upper lobe, lung the results <Right> section. BLOOD UREA NITROGEN Routine 06/07/2022 9:54 Small cell Resul ts for this AM [facility] carcinoma, NOS of procedure are in upper lobe, lung the results <Right> section. GLUCOSE LEVEL Routine 06/07/2022 9:54 Small cell Results for this AM [facility] carcinoma, NOS of procedure are in upper lobe, lung the results <Right> section. DIFFERENTIAL Routine 06/07/2022 9:54 Small cell Results for this AM [facility] carcinoma, NOS of procedure are in upper lobe, lung the results <Right> section. .CBC Routine 06/07/2022 9:54 Small cell Results for this AM [facility] carcinoma, NOS of procedure are in upper lobe, lung the results <Right> section. URIC ACID Routine 06/07/2022 9:54 Small cell Results for this AM [facility] carcinoma, NOS of procedure are in upper lobe, lung the results <Right> section. THYROID STIMULATING Routine 06/07/2022 9:54 Small cell Resul ts for this HORMONE AM [facility] carcinoma, NOS of procedure are in upper lobe, lung the results <Right> section. TRIIODOTHYRONINE Routine 06/07/2022 9:54 Small cell Results for this AM [facility] carcinoma, NOS of procedure are in upper lobe, lung the results <Right> section. MAGNESIUM LEVEL Routine 06/07/2022 9:54 Small cell Results f or this AM [facility] carcinoma, NOS of procedure are in upper lobe, lung the results <Right> section. FREE THYROXINE Routine 06/07/2022 9:54 Small cell Results fo r this AM [facility] carcinoma, NOS of procedure are in upper lobe, lung the results <Right> section. COMPREHENSIVE METABOLIC Routine 06/07/2022 9:54 Small cell PANEL AM [facility] carcinoma, NOS of upper lobe, lung <Right> COMPLETE BLOOD COUNT W/ Routine 06/07/2022 9:54 Small cell DIFFERENTIAL AM [facility] carcinoma, NOS of upper lobe, lung <Right> PETCT SUBSEQUENT Routine 06/07/2022 9:27 Small cell Results for this TREATMENT STRATEGY AM [facility] carcinoma, NOS of proc edure are in upper lobe, lung the results <Right> section. after 05/11/[address] Chest with Contrast (01/22/2023 10:49 [...] ve changes of the spine. Procedure Note Perez Mckeon, Bonny, MD - 01/23/20 23 FULL RESULT: Examination: [...] unchanged. No adenopathy. ACTIONABLE ITEMS/RECOMMENDATIONS: None. Grey [facility] CT ORDERABLES .Serum Creatinine (01/22/2023 9:24 AM CDT)Only the most recent of3 resultswithin the time period is included. P athologist Signature Creatinine 0.68 0.67 - 1.17 [facility] mg/dL DIAGNOSTIC CENTER Specimen Anatomical Collection Method Collection Time Receive d Time (Source) Location / / Volume Laterality Blood 01/22/2023 9:24 AM 3 CDT 10:28 AM CDT Grey [place] LAB BLOOD ORDERABLES Performing Organization Address City/State/ZIP Code Phon e Number [facility] DIAGNOSTIC Unless otherwise noted, [place] [address] CENTER all lab tests performed by: Division of Pathology and Laboratory Medicine [address] (ABNORMAL) .CBC (01/22/2023 9:24 AM CDT)Only the most recent of3 resultswithin the time period is included. Analysis Performed At Patho logist Time Signature WBC 10.4 4.1 - 10.5 [facility] K/uL DIAGNOSTIC CENTER RBC 3.73 (L) 4.30 - [facility] 6.04 M/uL DIAGNOSTIC CENTER Hgb 11.7 (L) 13.3 - [facility] 17.4 gm/dL DIAGNOSTIC CENTER Hct 35.1 (L) 39.5 - [facility] 51.8 % DIAGNOSTIC CENTER MCV 94 82 - 99 [facility] DIAGNOSTIC CENTER MCH 31.4 26.6 - [facility] 33.2 pg DIAGNOSTIC CENTER MCHC 33.3 31.1 - [facility] 35.2 gm/dL DIAGNOSTIC CENTER RDW-SD 51.5 (H) 37.5 - [facility] 49.7 fL DIAGNOSTIC CENTER RDW-CV 14.9 11.6 - [facility] 15.5 % DIAGNOSTIC CENTER Platelet count 337 160 - 397 [facility] K/uL DIAGNOSTIC CENTER MPV 9.9 9.1 - 12.6 [facility] DIAGNOSTIC CENTER INRBC 0.0 0.0 - 0.1 [facility] /100 WBC DIAGNOSTIC CENTER Comment: The INRBC [...] Organization Address City/State/ZIP Code Phon e Number [facility] DIAGNOSTIC Unless otherwise noted, [address] all lab tests performed by: Division of Pathology and Laboratory Medicine [address] [place] Glomerular Filtration Rate (01/22/2023 9:24 AM CDT)Only the most recent of3 resultswithin the time period is included. athologist Signature eGFR 101 >=60 [facility] mL/min/1.73 DIAGNOSTIC sq. m CENTER Comment: The [...] Organization Address City/State/ZIP Code Phon e Number [facility] DIAGNOSTIC Unless otherwise noted, [place] [phone] [place] [place] all lab tests performed by: Division of Pathology and Laboratory Medicine [address] Fractionated Bilirubin (01/22/2023 9:24 AM CDT)Only the most recent of3 results within the time period is included. athologist Signature Bili Total <0.3 <=1.2 mg/dL [facility] Comment: Direct and indirect bilirubin [...] Organization Address City/State/ZIP Code Phon e Number [facility] DIAGNOSTIC Unless otherwise noted, [place] [address] CENTER all lab tests performed by: Division of Pathology and Laboratory Medicine [address] [place] Differential (01/22/2023 9:24 AM CDT)Only the most recent of3 resultswithin the time period is included. athologist Signature Neutrophil % 65.7 43.2 - 72.7 [facility] DIAGNOSTIC CENTER Lymphocyte % 24.7 16.8 - 46.2 [facility] Monocyte % 6.7 5.1 - 12.5 [facility] Eosinophil % 2.1 0.4 - 6.3 % [facility] Basophil % 0.5 0.2 - 1.4 % [facility] IGRE % 0.3 0.1 - 1.5 % [facility] Comment: IGRE % count includes Metamyelo cytes, Myelocytes, and Promyelocytes. Neutrophil Abs 6.82 1.95 - 7.25 K/uL [facility] Lymphocyte Abs 2.56 1.01 - 3.24 K/uL [facility] Monocyte Abs 0.70 0.24 - 0.85 K/uL [facility] Eosinophil Abs 0.22 0.02 - 0.50 K/uL [facility] Basophil Abs 0.05 0.02 - 0.09 K/[facility]L [facility] IG Abs 0.03 0.01 - 0.12 K/uL [place] MD ANNIKA Zimmerman [facility] Specimen Anatomical Collection Method Collection Time Receive d Time (Source) Location / / Volume Laterality Blood 01/22/2023 9:24 AM 3 CDT 10:15 AM CDT [facility] [place] LAB BLOOD ORDERABLES Performing Organization Address [facility] Phon e Number [facility] DIAGNOSTIC Unless otherwise noted, [address] all lab tests performed by: Division of Pathology and Laboratory Medicine [facility] [place] BUN (01/22/2023 9:24 AM CDT)Only the most recent of3 resultswithin the time period is included. P athologist Signature BUN 9 6 - 23 [facility] mg/dL DIAGNOSTIC CENTER Specimen Anatomical Collection Method Collection Time Receive d Time (Source) Location / / Volume Laterality Blood 01/22/2023 9:24 AM 3 CDT 10:28 AM CDT [facility] [place] LAB BLOOD ORDERABLES Performing Organization Address [facility] Phon e Number [facility] DIAGNOSTIC Unless otherwise noted, [address] all lab tests performed by: Division of Pathology and Laboratory Medicine [address] [place] [address] [place] ALT (01/22/2023 9:24 AM CDT)Only the most recent of3 resultswithin the time period is included. P athologist Signature ALT <5 <=41 U/L [facility] Specimen Anatomical Collection Method Collection Time Receive d Time (Source) Location / / Volume Laterality Blood 01/22/2023 9:24 AM 3 CDT 10:28 AM CDT [facility] [place] LAB BLOOD ORDERABLES Performing Organization Address City/[facility] Phon e Number [facility] DIAGNOSTIC Unless otherwise noted, [address] all lab tests performed by: Division of Pathology and Laboratory Medicine [address] [place] [address] [place] Aspartate Aminotransferase (01/22/2023 9:24 AM CDT)Only the most recent of3 resultswithin the time period is included. P athologist Signature AST 12 <=40 U/L [facility] Specimen Anatomical Collection Method Collection Time Receive d Time (Source) Location / / Volume Laterality Blood 01/22/2023 9:24 AM 3 CDT 10:28 AM CDT [facility] [place] LAB BLOOD ORDERABLES Performing Organization Address City/[facility]/ZIP Code Phon e Number [facility] DIAGNOSTIC Unless otherwise noted, [address] all lab tests performed by: Division of Pathology and Laboratory Medicine [address] [place] Total Protein (01/22/2023 9:24 AM CDT)Only the most recent of3 resultswithin the time period is included. [facility] Total Protein 6.7 6.4 - 8.3 [facility] g/dL DIAGNOSTIC CENTER Specimen Anatomical Collection Method Collection Time Receive d Time (Source) Location / / Volume Laterality Blood 01/22/2023 9:24 AM 3 CDT 10:28 AM CDT [facility] [place] LAB BLOOD ORDERABLES Performing Organization Address [facility]/ZIP [facility] Phon e Number [facility] DIAGNOSTIC Unless otherwise noted, [address] all lab tests performed by: Division of Pathology and Laboratory Medicine [address] [place] Alkaline Phosphatase (01/22/2023 9:24 AM CDT)Only the most recent of3 results within the time period is included. athologist [facility] Alk Phos 75 40 - 129 [facility] U/L DIAGNOSTIC CENTER Specimen Anatomical Collection Method Collection Time Receive d Time (Source) Location / / Volume Laterality Blood 01/22/2023 9:24 AM 3 CDT 10:28 AM CDT [facility] [place] LAB BLOOD ORDERABLES Performing Organization Address City/[facility] Phon e Number [facility] DIAGNOSTIC Unless otherwise noted, [address] all lab tests performed by: Division of Pathology and Laboratory Medicine [address] [place] Glucose Level (01/22/2023 9:24 AM CDT)Only the most recent of3 resultswithin the time period is included. athologist [facility] Glucose Level 74 70 - 99 [facility] mg/dL DIAGNOSTIC CENTER Comment: Effective 01/24/16, the glucose reference intervals have been updated based on [place] [employer] guidelines (Standards of Medical Care [...] [place] LAB BLOOD ORDERABLES Performing Organization Address City/[facility] Phon e Number [facility] DIAGNOSTIC Unless otherwise noted, [address] all lab tests performed by: Division of Pathology and Laboratory Medicine [address] [place] Calcium Level (01/22/2023 9:24 AM CDT)Only the most recent of3 resultswithin the time period is included. P athologist Signature Calcium Lvl 9.1 8.4 - 10.2 [facility] mg/dL [facility] Specimen Anatomical Collection Method Collection Time Receive d Time (Source) Location / / Volume Laterality Blood 01/22/2023 9:24 AM 3 CDT 10:28 AM CDT Grey [place] LAB BLOOD ORDERABLES Performing Organization Address [facility] Phon e Number [facility] DIAGNOSTIC Unless otherwise noted, [address] all lab tests performed by: Division of Pathology and Laboratory Medicine [address] [place] Albumin Level (01/22/2023 9:24 AM CDT)Only the most recent of3 resultswithin the time period is included. P athologist Signature Albumin Lvl 3.8 3.5 - 5.2 [facility] gm/dL DIAGNOSTIC CENTER Specimen Anatomical Collection Method Collection Time Receive d Time (Source) Location / / Volume Laterality Blood 01/22/2023 9:24 AM 3 CDT 10:28 AM CDT Grey [place] LAB BLOOD ORDERABLES Performing Organization Address City/[facility]/ZIP Code Phon e Number [facility] DIAGNOSTIC Unless otherwise noted, [address] all lab tests performed by: Division of Pathology and Laboratory Medicine [address] [place] (ABNORMAL) Electrolyte Panel (01/22/2023 9:24 AM CDT)Only the most recent of3 resultswithin the time period is included. athologist Signature Sodium Lvl 136 136 - 145 [facility] mEq/L DIAGNOSTIC CENTER Potassium Lvl 3.5 3.5 - 5.1 [facility] mEq/L DIAGNOSTIC CENTER Chloride 100 98 - 107 [facility] mEq/L DIAGNOSTIC CENTER CO2 32 (H) 22 - 29 [facility] mEq/L DIAGNOSTIC CENTER Anion Gap 4 4 - 14 [facility] mEq/L DIAGNOSTIC [place] Specimen Anatomical Collection Method Collection Time Receive d Time (Source) Location / / Volume Laterality Blood 01/22/2023 9:24 AM 3 CDT 10:28 AM CDT [place] LAB BLOOD ORDERABLES Performing Organization Address [facility]/ZIP Code Phon e Number [facility] DIAGNOSTIC Unless otherwise noted, [address] all lab tests performed by: Division of Pathology and Laboratory Medicine [address] [place] (ABNORMAL) POC Creatinine (01/22/2023 9:19 AM CDT)Only the most recent of2 resultswithin the time period is included. athologist Signature POC Crea 0.5 (L) 0.6 - 1.3 [...] Clean Dev Yes POC TELCOR Performing Lab [facility] POC TELCO R Comment: [facility], [address] [place] [address], [place] [address]; Lab Direct or: Karma Arciniega MD; Waived Point of Care Testing - Rosina Parikh MD Specimen Anatomical Collection Method Collection Time Receive d Time (Source) Location / / Volume Laterality Blood 01/22/2023 9:19 AM 3 9:19 CDT AM CDT Grey [place] POCT ORDERABLES - DEVICE Performing Organization Address City/State/ZIP Code Phon e Number POC TELCOR Unless otherwise noted, [place] [address] lab tests performed by: Division of Pathology and Laboratory Medicine [address] [place] [address] Uric Acid (06/07/2022 9:54 AM CHHA) P athologist Signature Uric Acid 5.3 3.4 - 7.0 [facility] mg/dL Comment: Testing Performed at [facility], [address] [facility], [address], [place] [id number] Specimen Anatomical Collection Method Collection Time Receive d Time (Source) Location / / Volume Laterality Blood 06/07/2022 9:54 AM 2 CHHA 10:05 AM CHHA Stella Clark APRN LAB BLOOD ORDERABLES Performing Organization Address City/State/ZIP Code Phon e Number [facility] [address] [facility] [place] [address] [address] T3 (06/07/2022 9:54 AM CHHA) athologist Signature T3 Total 153 80 - 200 [facility] ng/dL [facility] Specimen Anatomical Collection Method Collection Time Receive d Time (Source) Location / / Volume Laterality Blood 06/07/2022 9:54 AM 2 CHHA 10:53 AM CHHA Stella Clark APRN LAB BLOOD ORDERABLES Performing Organization Address City/State/ZIP Code Phon e Number [facility] CANCER Unless otherwise noted, [place] [address] CENTER all lab tests performed by: Division of Pathology and Laboratory Medicine [facility] TSH (06/07/2022 9:54 AM CHHA) athologist Signature TSH 0.65 0.27 - 4.20 [facility] mcunit/mL Comment: Note: New Methodology and Reference Ra nge change effective 10/16/2017 at 1400 Testing Performed at [facility] General Operations Manager [facility], [address] [place] [address], [address], [place] [address] Specimen Anatomical Collection Method Collection Time Receive d Time (Source) Location / / Volume Laterality Blood 06/07/2022 9:54 AM 2 CHHA 10:05 AM CHHA Stella Clark APRN LAB BLOOD ORDERABLES Performing Organization Address City/[facility]/ZIP Code Phon e Number [facility] [address] [facility] [place] [address] [address] Free T4 (06/07/2022 9:54 AM CHHA) athologist Signature T4 Free 1.01 0.93 - 1.70 [facility] ng/dL Comment: Testing Performed at B Lab Am bulatory Care [facility], [address] [facility], [address], [place] [address] Specimen Anatomical Collection Method Collection Time Receive d Time (Source) Location / / Volume Laterality Blood 06/07/2022 9:54 AM 2 CHHA 10:05 AM CHHA Stella Clark VICE PRESIDENT OF SOFTWARE ENGINEERING LAB BLOOD ORDERABLES Performing Organization Address City/State/ZIP Code Phon e Number [facility] [address] [facility] [place] [address] [address] Magnesium Level (06/07/2022 9:54 AM CHHA) P athologist Signature Magnesium 1.9 1.6 - 2.6 [facility] mg/dL Comment: Testing Performed at [facility] Am bulatory Care Bldg, [address] [facility], [address], [place] [address] Specimen Anatomical Collection Method Collection Time Receive d Time (Source) Location / / Volume Laterality Blood 06/07/2022 9:54 AM 2 CHHA 10:05 AM CHHA Stella Clark VICE PRESIDENT OF SOFTWARE ENGINEERING LAB BLOOD ORDERABLES Performing Organization Address City/[facility]/ZIP Code Phon e Number [facility] [address] [place] [address]. [place] [address] [address] PETCT Subsequent Treatment Strategy (06/07/2022 9:27 AM CHHA) Anatomical Region Laterality Modality Whole Body Positron Emission To mography (PET) Specimen (Source) Anatomical Collection Method Collection Time Re ceived Time Location / / Volume Laterality 06/07/2022 11:01 AM CHHA Impressions 06/07/2022 11:46 AM CHHA 1. No convincing evidence of FDG-avid small cell lung cancer. 2. Bilateral irregular lung opacities wi th some regions demonstrating associated activity show some change in anatomic configuration when compared to 10/15/2021 CT and are compatible with a chronic waxing/waning infectious or inflammatory process. Narrative 06/07/2022 11:46 AM [facility]HA FULL RESULT: Examination: FDG PET/CT, 06/07/2022 9:27 [...] waxing/waning infectious or inflammatory process. Stella Clark VICE PRESIDENT OF SOFTWARE ENGINEERING IMG PETCT ORDERABLES after 05/11/2022 Insurance Payer Benefit Plan / Subscriber ID Effective Phone Address T ype Group Dates [facility] [id number] 2020-Prese [address] 72 Medicare MEDICARE MEDICARE nt [place] AD[place]ANTAGE ADVANTAGE [id number] Guarantor Name Account Type Relation to Date of Phone Billing Patient Address Chato Moreno Personal/Family Self 1955 [phone] ([place]) [place] [address] Chato Moreno Personal/Family Self 1955 [id number] [place] [address] Advance Directives Code Status Date Activated Date Inactivated Comments Full Code 10/15/2021 2:23 PM 10/24/2021 8:32 PM Code Status Date Activated Date Inactivated Comments Full Code 09/03/2021 10:00 PM 09/07/2021 5:51 PM Full Code 02/16/2021 11:33 PM 03/02/2021 8:45 PM Full Code 01/22/2021 1:08 AM 01/30/2021 8:41 PM Full Code 01/04/2021 3:56 PM 01/19/2021 6:53 PM Care Teams Sinter Press Operator Relationship Specialty Start Date End Date Carl Jones MD PCP - External Primary Family Practice 02/14/20 Care Provider [address] [place] [address] Henrique Plasencia V., PCP - General Thoracic Medicine 04/21/[address] [place] [id number] Kang Piedra MD PCP - External Follow Dermatology 06/12/20 Up [address] [place] [address] [id number] Mary Beth Hinson Speech Language Speech Pathology 04/16/[address] , [facility] [employer] Pathologist [address] [place] [id number] Clay Hernandez MD Consulting Physician Pulmonary Medicine 03/31/[address] [place] [phone] Kang Monreal MD Consulting Physician Hematology and 04/16/[address] [place] [id number] Patrick Huerta MD Consulting Physician Dermatology 05/18/[address] [place] [id number]
--- OUTSIDE RECORDS SUMMARY | 2023-05-11 11:10 | XMS REPORT | Continuity of Care Document ---
:1955 Author Organization [facility] t Address [address] [place] [address] Care Team Providers Name Role Phone MARIA FERNANDA WASHINGTON Primary Care Physician Unavailable VINCE MCFARLAND Attending Clinician Unavailable BRAD FELICIANO Attending Clinician Unavailable VIRGEN JACKSON Attending Clinician Unavailable KATE SELBY Attending Clinician Unavailable CORTNEY MAHMOOD Attending Clinician Unavailable ZACHARY DICKINSON Attending Clinician Unavailable SYSTEM, PROVIDER NOT IN Attending Clinician Unavailable LAURENT JAMES Attending Clinician Unavailable ZAIN JAEGER Attending Clinician Unavailable AZEB FORDEITROMARIANN Attending Clinician Unavailable Stella Clark APRN Attending Clinician ABIODUN MERLOS Attending Clinician Unavailable RAISA DAIGLE Attending Clinician Unavailable ORACIO HDZ Attending Clinician Unavailable SAM DIAZ Attending Clinician Unavailable Maria Fernanda Washington MD, V. Attending Clinician Lisa Acevedo RN Attending Clinician Unavailable Aletha Peña APRN Attending Clinician Grey Lobo Attending Clinician Edmund JARAMILLO, Daisy Zimmerman Attending Clinician Lisa RN, Enriqueta A Attending Clinician Mamadou RN, Zulema A Attending Clinician Unavailable Alex Amor PharmD Attending Clinician Giovana RN, Liz Flores Attending Clinician Fab JARAMILLO, Inez Stewart Attending Clinician Constantine Willis APRN Attending Clinician Ger JARAMILLO, [...] Clinician Alexus CARDENAS, Boni Carr Attending Clinician [phone] Guille JARAMILLO, Arcadio Attending Clinician Unavailable BONI OBRIEN Attending Clinician Unavailable Aisha CARDENAS, Edwige Orozco Attending Clinician Zane CARDENAS, Jenise Attending Clinician Dhiraj Fry CRNA Attending Clinician Jacquelyn CARDENAS, Shena Gudino Attending Clinician Unavailable TOD GLASS V. Attending Clinician Unavailable MARIA FERNANDA WASHINGTON V. Attending Clinician Unavailable JUDY, ED Attending Clinician Unavailable Shantal Patiño MD, Deshawn Attending Clinician [phone] Dean JARAMILLO, Stella Stewart Attending Clinician Unavailable Price JARAMILLO, Ileana Ann Attending Clinician Unavailable Aisha CARDENAS, Mehrdad Attending Clinician Oh CARDENAS, Enriqueta Attending Clinician DANISH HART Attending Clinician Unavailable John JARAMILLO, Michael Lehman Attending Clinician Unavailable Fab BRUNER, Lela Ramírez Attending Clinician Tadeo CARDENAS, Herrera Attending Clinician Solo REHABILITATION COUNSELLOR, Jacki Attending Clinician Gucci CONSULTING SOLUTION DIRECTOR, Sarah Ybarra Attending Clinician Tejinder CARDENAS, Raymundo Attending Clinician Miguel Ángel CONSULTING SOLUTION DIRECTOR, Virgen Hirsch Attending Clinician Jossy CARDENAS, Abdirziak Attending Clinician Jarrett JARAMILLO, Génesis Ann Attending Clinician Unavailable Anais JARAMILLO, Génesis Trevino Attending Clinician Unavailable Andrea ROUSSEAU, Jackie Attending Clinician Rob JARAMILLO, Yudith Lehman Attending Clinician Unavailable Crista CARDENAS, Claude Attending Clinician Yannick BRUNER, Elmira Zimmerman Attending Clinician Tegan CARDENAS, Giovanna Tanner Attending Clinician Sravan [facility] MEDICAL EXAMINER, Mary Beth Ann Attending Clinician Unavailable Rah CARDENAS, Herrera Attending Clinician Enzo PharmD, Wayne Attending Clinician Brandon JARAMILLO, Juan Lehman Attending Clinician Unavailable Pineda WITT, Gabrielle Owens Attending Clinician Alina Marr RD Attending Clinician Jacque DOTSONN, Nanette Stewart Attending Clinician Chris PharmD, Tanja Mora Attending Clinician Unavailable Precious CARDENAS, Benedicto Attending Clinician Shivam JARAMILLO, Sahara Farah Attending Clinician IRINA SMITH Attending Clinician Unavailable GABRIELLE GONZALEZ Attending Clinician Unavailable MARCIN GARCIA Attending Clinician Unavailable MAYANK CALLES Attending Clinician Unavailable BENEDICTO CORDON Attending Clinician Unavailable RASHAAD PURVIS Attending Clinician Unavailable TANNER MATHEW Attending Clinician Unavailable BENEDICTO RAMSEY Attending Clinician Unavailable ENRIQUETA ESTES Attending Clinician Unavailable RAYMUNDO MARR Attending Clinician Unavailable RUSSELL GIRALDO Attending Clinician Unavailable GUILLE LIND Attending Clinician Unavailable UNKNOWN, ATTENDING Attending Clinician Unavailable HERRERA PIEDRA Attending Clinician Unavailable ROCKY RODRIGUEZ Attending Clinician Unavailable CODY CRANE Attending Clinician Unavailable AURELIANO EDWARD Attending Clinician Unavailable ORACIO REECE Attending Clinician Unavailable NANETTE OLIVAS Attending Clinician Unavailable MAURICIO MAY Attending Clinician Unavailable HAYLEY TAPIA Attending Clinician Unavailable Dhiraj Jaimes Attending Clinician Unavailable TORY NEWBERRY Admitting Clinician Unavailable THELMA BOWSER Admitting Clinician Unavailable MEHRDAD ROD Admitting Clinician Unavailable CLAUDE TOBIN Admitting Clinician Unavailable TOD GLASS VYancy Admitting Clinician Unavailable GABE OROZCO Admitting Clinician Unavailable SARAH SHARMA Admitting Clinician Unavailable RUSSELL GIRALDO Admitting Clinician Unavailable Physician, No Primary or Family Admitting Clinician Unavaila ble Payers Payer Name Policy Type Policy Number Effective Date Expiration Date S william [employer] [id number] 2023 00:00:00 [employer] [place] [id number] 2020 PLUS CLASSIC/VALUE 00:00:00 Problems Condition Condition Condition Status Onset Resolution Last Treating Co mments Source Name Details Category Date Date Treatment Clinician Date 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 Center Added automatic ally from request for surgery [id number] Family Family Disease Active 2020-06 Univers education education 1-09 ity of about pain about pain 00:00: [place] management management 00 MD [facility]erman [facility] History of History of Disease Recurre Univers radiation radiation nce 8-20 ity of therapy therapy 00:00: [place] 00 MD Fuentes [facility]erman [facility] Pressure-i Pressure-i Disease Active Overview : Univers nduced nduced 7-09 Formattin ity of deep deep 00:00: g of this [place] tissue tissue 00 note damage of damage of might be An derso other site other site different n from the Cancer original. Center Site: Coccyx Sepsis Sepsis Disease Active Univers 7-08 ity of 00:00: [place] 00 MD Fuentes zimmerman [facility] Pulmonary Pulmonary Disease Active Uni vers embolism embolism 5-21 ity of 00:00: [place] 00 MD Fuentes [facility]immerman [facility] Stage 1 Stage 1 Disease Active Overview: Univ ers pressure pressure 5-18 Formattin ity of ulcer of ulcer of 00:00: g of this [place] as other site other site 00 note MD might be Fuentes different n from the Cancer original. Center Left ear- stage 1-puller over related from nasal cannula Tube Tube Disease Active Univers feeding feeding 4-24 ity of diet diet 00:00: [place] 00 MD Fuentes [facility]immerman [facility] Pneumonia Pneumonia Disease Active Uni vers due to due to 4-22 ity of other other 00:00: [place] Gram-negat Gram-negat 00 MD ornelas ceci Fuentes bacteria bacteria [facility] Sequelae Sequelae Disease Active Unive rs of of 4-11 ity of hyperalime hyperalime 00:00: [place] ntation ntation 00 MD Fuentes zimmerman [facility] Adverse Adverse Disease Active Univers effect of effect of 3-23 ity of glucocorti glucocorti 00:00: Herman carroll coids and coids and 00 synthetic synthetic Prince rso analogues analogues [facility] Current Current Disease Active Univers use of use of 3-23 ity of insulin insulin 00:00: [place] MD Fuentes zimmerman [facility] Anxiety Anxiety Disease Active Univers disorder disorder 3-17 ity of due to a due to a 00:00: [place] general general 00 medical medical Andmiguel condition condition [facility] Center Disorder Disorder Disease Active Unive rs of fluid of fluid 3-08 ity of AND/OR AND/OR 00:00: [place] electrolyt electrolyt 00 [facility] Sinus Sinus Disease Active Univers tachycardi tachycardi 3-08 it y of a a 00:00: [place] 00 MD Dill [facility] Pleuritic Pleuritic Disease Active Uni vers pain pain 2-26 ity of 00:00: [place] 00 MD Dill [facility] Anemia of Anemia of Disease Recurre Un yakov chronic chronic nce 2-22 ity of disease disease 00:00: [place] 00 MD Dill [facility] Acute and Acute and Disease Active Uni vers chronic chronic 2-22 [place]y of respirator [place] failure y failure 00 with with Anderso hypoxia hypoxia [facility] Failure to Failure to Disease Active U nivers thrive thrive 2-22 ity of 00:00: [place] 00 MD Dill [facility] 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 An derso on on [facility] Dyspnea Dyspnea Disease Active Univers 2-11 ity of 00:00: [place] 00 MD Dill [facility] Decompensa Decompensa Disease Active U nivers lakhwinder COPD lakhwinder COPD 1-31 ity of with acute [place] acute [place] exacerb[place] exacerbati 00 on on [facility] 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 Center Chronic Chronic Disease Active Univers pain due pain due ity of to to [place] malignant malignant neoplastic neoplastic An derso disease disease n [facility] Center Slow Slow Disease Active Univers transit transit it[place] of [place] Fuentes zimmerman [facility] Other Other Disease Active Univers psychologi psychologi it [facility] [place] physical physical stress, stress, Anderso not not n elsewhere elsewhere Canc er classified classified Ce nter Acute Acute Disease Resolve 2021-09-04 2021-09-04 Univers kidney kidney d 02-16 00:00:00 14:37:22 [place]y of injury due injury due [place] to to 00 hypovolemi hypovolemi An derso a a n [facility] Hypovolemi Hypovolemi Disease Resolve 2021-09-04 2021-09-04 Univers a a d 02-16 00:00:00 14:36:33 ity of 00:00: 00 MD Fuentes zimmerman [facility] High High Disease Resolve 2021-09-04 2021-09-04 Univers troponin I troponin I d 02-16 00:00:00 14:35:35 ity of level level 00:00: 00 MD Fuentes zimmerman [facility] Hyperkalem Hyperkalem Disease Resolve 2021-09-04 2021-09-04 Univers ia ia d 02-16 00:00:00 14:36:15 ity of 00:00: 00 MD Fuentes zimmerman [facility] Aspergillo Aspergillo Disease Resolve 2021-09-04 2021-09-04 Univers sis with sis with d 10-25 00:00:00 14:36:44 it y of pneumonia pneumonia 00:00: s [facility] Multiple Multiple Disease Resolve 2021-09-04 2021-09-04 Univers lung lung d 10-20 00:00:00 14:36:17 ity of abscesses abscesses 00:00: s [facility] Drug Drug Disease Resolve 2021-09-04 2021-09-04 Univers induced induced d 09-19 00:00:00 14:37:13 ity of diabetes diabetes 00:00: [place] mellitus mellitus 00 with with Fuentes joseph hyperglyce erasmo [facility] intermediate superintendent 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 Diarrhea Diarrhea Disease Resolve 2021-09-04 2021-09-04 Univers d 2 00:00:00 14:37:13 ity of 00:00: [place] [address] [facility] Aspiration Aspiration Disease Resolve 2021-09-04 2021-09-04 Univers into lower into lower d 2- 00:00:00 14:37:24 [place] of respirator [place]ator [place] tract y tract [address] [facility] COVID-19 COVID-19 Disease Resolve 2021-09-04 2021-09-04 Univers d 1-30 00:00:00 14:35:39 ity of 00:00: [place] 00 MD [facility] Amaurosis Amaurosis Disease Resolve 2018-0 2021-09-04 2021-09-04 Univers fugax fugax d 4-29 00:00:00 14:36:43 ity of 00:00: [place] 00 MD Fuentes zimmerman [facility] Center Cancer-rel Cancer-rel Disease Resolve 2021-09-04 2021-09-04 Univers ated ated d 00:00:00 14:37:19 ity of fatigue fatigue Willis [facility]immerman [facility] Mixed Mixed Disease Resolve 2021-09-04 2021-09-04 Univers infectious infectious d 00:00:00 14:36:17 ity of disease disease [facility]immerman [facility] Tomography Tomography Disease Resolve 2021-09-04 2021-09-04 Univers - chest - chest d 00:00:00 14:36:37 ity of abnormal abnormal [facility]immerman [facility] Allergies, Adverse Reactions, Alerts Allergy Allergy Status Severity Reaction(s) Onset Inactive Treating Comm ents Source Name Type Date Date Clinician No Known DA Active U 2020-1 [facility] Allergie 0-30 [facility] 00:00: d 00 [facility] No Known DA Active U 2019- [facility] Allergie 0-30 [facility] 00:00: d 00 [facility] codeine DA Active MD 2020-0 [facility] 2-13 [facility] 00:00: d 00 [facility] codeine DA Active MD rash 2019-0 [facility] 2-13 [facility] 00:00: d 00 [facility] codeine DA Active MD 2011- [facility] 0-09 [facility] 00:00: d 00 [facility] codeine DA Active MD rash 2011- [facility] 0-09 [facility] d [facility] NO KNOWN Drug Active Univers ALLERGIE Class ity of S [facility] NO KNOWN Allergy Active [facility] Family History Family Member Diagnosis Comments Start Date Stop Date Source Maternal grandfather Emphysema Univ ersity of [place] MD Poncho Pickard Natural sister Lung cancer [facility] y [facility] [place] MD Poncho massey [place] Social History Social Habit Start Date Stop Date Quantity Comments Source Sexual orientation 2020-03-02 Heterosexual Univ ersity of 18:14:08 (finding) [place] MD Poncho Pickard History of tobacco Cigarette Smoker University of use [place] MD Poncho Fernandes [facility] History [facility] o f Alcohol Frequency [place] Tate Lehman Poncho Dom [facility] History [facility] o f Alcohol Std Drinks [place] Poncho Dom [facility] History [facility] o f Alcohol Binge [place] MD Poncho Fernandes [facility] Exposure to 2022-09-03 2022-09-13 Not sure University SARS-CoV-2 (event) 00:00:00 08:17:00 [place] MD Poncho Fernandes [facility] Cigarettes smoked 2022-09-13 2022-09-13 Univers ity of current (pack per 00:00:00 00:00:00 [place] Tate Lehman day) - Reported [facility] Tobacco use and 2022-09-13 2022-09-13 Smokeless tobacco Un iversity of exposure 00:00:00 00:00:00 non-user [place] Poncho Dom [facility] Alcohol intake 2022-09-13 2022-09-13 Ex-drinker University 00:00:00 00:00:00 (finding) [place] MD Poncho Fernandes [facility] History of Social 2022-09-13 2022-09-13 Univers ity of function 00:00:00 00:00:00 [place] [facility] Alcohol Comment 2020-03-02 2020-03-02 .5 gallon of vodka U niversity of 00:00:00 00:00:00 daily 15 years ago [place] Poncho Dom [facility] Sex Ass[birth year] Universit y of 00:00:00 00:00:00 [facility] Smoking Status Start Date Stop Date Source Ex-smoker 2022-09-13 00:00:00 2022-09-13 00:00:00 Universi ty of [facility] Medications Ordered Filled Start Stop Current Ordering Indication Dosage Frequency Signature Comments Components Source Medication Medication Date Date Medication? Clinician (SIG) Name Name atorvastati 2022- No 40mg Take 40 mg Univers n (LIPITOR) 01-22 by mouth ity of 40 mg 14:29: 00:00 daily. [place] dana 14 :00 MD Fuentes zimmerman [facility] atorvasary 2022- No 40mg Take 40 mg Univers n (LIPITOR) 01-22 by mouth ity of 40 mg 14:29: 00:00 daily. [place] tablet 14 :00 [facility] budesonide Yes severe .25mg Inhale Un yakov (PULMICORT) 01-22 chronic 0.25 mg by ity of 0.25 mg/2 14:29: obstructive nebulizati [place] mL 10 pulmonary on daily. nebulizer disease [facility] megestrol Yes 400mg Give 400 Uni vers (MEGACE) 40 7-26 mg per ity of mg/mL 14:29: G-tube. [place] suspension 10 [facility] budesonide Yes severe .25mg Inhale Un yakov (PULMICORT) 01-22 chronic 0.25 mg by ity of 0.25 mg/2 14:29: obstructive nebulizati [place] mL 10 pulmonary on daily. nebulizer disease [facility] solution [facility] megestrol Yes 400mg Give 400 Uni vers (MEGACE) 40 7-26 mg per ity of mg/mL 14:29: G-tube. [place] suspension 10 [facility] umeclidiniu Yes Inhale by U nivers m-vilantero 01-22 mouth. ity of L 62.5-25 14:28: [place] mcg/actuati 31 MD on dsdv [facility] umeclidiniu Yes Inhale by U nivers m-vilantero - mouth. ity of L 62.5-25 14:28: [place] mcg/actuati 31 MD on dsdv [facility] Eliquis 5 Yes Small cell 5mg Take 1 Univers mg tablet 01-22 carcinoma, tablet (5 ity of 00:00: NOS of mg) by [place] 00 upper lobe, mouth lung every 12 Anderso <Right> (twelve) n hours. [facility] acetaminoph Yes Small cell 1{tbl} Take 1 Univers en-codeine 01-22 carcinoma, tablet by ity of (Tylenol-Co 00:00: NOS of mouth 3 [place] deine #3) 00 upper lobe, (three) 300 mg-30 lung times a Anderso mg tablet <Right> day as n needed for Cancer moderate Center pain. Eliquis 5 Yes Small cell 5mg Take 1 Univers mg tablet 01-22 carcinoma, tablet (5 ity of 00:00: NOS of mg) by [place] 00 upper lobe, mouth lung every 12 Anderso <Right> (twelve) n hours. Cancer Center acetaminoph Yes Small cell 1{tbl} Take [...] [place] tablet 00 MD [facility] amitriptyli Yes AT BEDTIME Univers ne (ELAVIL) 6-26 ity of 25 mg 00:00: [place] tablet 00 [facility] Advair Yes as needed. Unive rs Diskus 6-08 ity of 250-50 00:00: [place] mcg/dose 00 diskus Anderso inhaler n Cancer Center Advair Yes as needed. Unive rs Diskus 6-08 ity of 250-50 00:00: [place] mcg/dose 00 diskus Anderso inhaler n Cancer Center atorvastati Yes 40mg Take 40 mg Univers n (LIPITOR) 3-17 by mouth ity of 40 mg 11:58: daily. [place] tablet 00 MD Fuentes zimmerman [facility] Center budesonide Yes severe .25mg Inhale Un yakov (PULMICORT) 3-17 chronic 0.25 mg by ity of 0.25 mg/2 11:58: obstructive nebulizati [place] mL 00 pulmonary on daily. nebulizer disease Anderso solution n Cancer [place] umeclidiniu Yes Inhale by U nivers m-vilantero 3-17 mouth. ity of L 62.5-25 11:58: [place] mcg/actuati 00 MD on dsdv Anderso n [facility] megestrol Yes 400mg Give 400 Uni vers (MEGACE) 40 3-17 mg per ity of mg/mL 11:58: G-tube. [place] suspension [facility] atorvastati Yes 40mg Take 40 mg Univers n (LIPITOR) 3-17 by mouth ity of 40 mg 11:58: daily. [place] tablet [facility] budesonide Yes severe .25mg Inhale Un yakov (PULMICORT) 3-17 chronic 0.25 mg by ity of 0.25 mg/2 11:58: obstructive nebulizati [place] mL 00 pulmonary on daily. nebulizer disease [facility] solution [facility] umeclidiniu Yes Inhale by U nivers m-vilantero 3-17 mouth. ity of L 62.5-25 11:58: [place] mcg/actuati 00 on dsdv [facility] megestrol Yes 400mg Give 400 Uni vers (MEGACE) 40 3-17 mg per ity of mg/mL 11:58: G-tube. [place] suspension [facility] atorvastati Yes 40mg Take 40 mg Univers n (LIPITOR) 3-17 by mouth ity of 40 mg 11:58: daily. [place] tablet 00 [facility] budesonide Yes severe .25mg Inhale Un yakov (PULMICORT) 3-17 chronic 0.25 mg by ity of 0.25 mg/2 11:58: obstructive nebulizati [place] mL 00 pulmonary on daily. nebulizer disease [facility] umeclidiniu Yes Inhale by U nivers m-vilantero 3-17 mouth. ity of L 62.5-25 11:58: [place] mcg/actuati 00 on dsdv [facility] megestrol Yes 400mg Give 400 Uni vers (MEGACE) 40 3-17 mg per ity of mg/mL 11:58: G-tube. [place] suspension [facility] atorvastati 2023-0 Yes 40mg Take 40 mg Univers n (LIPITOR) 3-17 by mouth ity of 40 mg 11:58: daily. [place] tablet 00 MD Dill [facility] budesonide Yes severe .25mg Inhale Un yakov (PULMICORT) 3-17 chronic 0.25 mg by ity of 0.25 mg/2 11:58: obstructive nebulizati [place] mL 00 pulmonary on daily. nebulizer disease [facility] umeclidiniu Yes Inhale by U nivers m-vilantero 3-17 mouth. ity of L 62.5-25 11:58: [place] mcg/actuati [address] [facility] megestrol Yes 400mg Give 400 Uni vers (MEGACE) 40 3-17 mg per ity of mg/mL 11:58: G-tube. [place] suspension 00 MD Dill [facility] atorvastati Yes 40mg Take 40 mg Univers n (LIPITOR) 3-17 by mouth ity of 40 mg 11:58: daily. [place] tablet 00 MD Dill [facility] budesonide Yes severe .25mg Inhale Un yakov (PULMICORT) 3-17 chronic 0.25 mg by ity of 0.25 mg/2 11:58: obstructive nebulizati [place] mL 00 pulmonary on daily. nebulizer disease [facility] Inhale by U nivers m-vilantero 3-17 mouth. ity of L 62.5-25 11:58: [place] mcg/actuati [address] [facility] megestrol Yes 400mg Give 400 Uni vers (MEGACE) 40 3-17 mg per ity of mg/mL 11:58: G-tube. [place] suspension 00 MD Dill [facility] Eliquis 5 Yes 5mg Take 1 Univer s mg tablet 3-06 tablet (5 ity o f 00:00: mg) by 00 mouth MD maggy scott. [facility] Eliquis 5 Yes 5mg Take 1 Univer s mg tablet 3-06 tablet (5 ity o f 00:00: mg) by [place] 00 mouth twice Anderso daily. [facility] 20[facility]-0 Yes 5mg Take 1 Univer s mg tablet 3-06 tablet (5 ity o f 00:00: mg) by [place] 00 mouth twice Anderso daily. [facility] 2022-0 Yes 5mg Take 1 Univer s mg tablet 3-06 tablet (5 ity o f 00:00: mg) by [place] 00 mouth twice Anderso daily. [facility] 2022-0 Yes 5mg Take 1 Univer s mg tablet 3-06 tablet (5 ity o f 00:00: mg) by [place] 00 mouth twice Anderso daily. [facility] No 5mg Take 1 Unive rs mg tablet 09-02- tablet (5 ity of 00:00: 00:00 mg) by [place] 00 :00 mouth twice Anderso daily. [facility] 5 [facility] 2022- No 5mg Take 1 Unive rs mg tablet 09-02- tablet (5 ity of 00:00: 00:00 mg) by [place] 00 :00 mouth twice Anderso daily. [facility] umeclidiniu 2021-06 Yes Inhale by U nivers m-vilantero 2-09 mouth. ity of L 62.5-25 12:33: [place] mcg/actuati 10 MD on dsdv Anderso [facility] umeclidiniu 2021-06 Yes Inhale by U nivjanice m-vilantero 2-09 mouth. ity of L 62.5-25 12:33: [place] mcg/actuati 10 [facility] Yes 40mg Take 40 mg Univers n (LIPITOR) 2- by mouth ity of 40 mg 12:30: daily. [place] tablet 21 MD Dill [facility] budesonide 2021-06 Yes severe .25mg Inhale Un yakov (PULMICORT) - chronic 0.25 mg by ity of 0.25 mg/2 12:30: obstructive nebulizati [place] mL 21 pulmonary on daily. nebulizer disease [place] solution [facility] megestrol 2021-06 Yes 400mg Give 400 Uni vers (MEGACE) 40 2-09 mg per ity of mg/mL 12:30: G-tube. [place] suspension 21 MD Fuentes zimmerman [facility] atorvastati 2021-06 Yes 40mg Take 40 mg Univers n (LIPITOR) 2-09 by mouth ity of 40 mg 12:30: daily. [place] tablet 21 MD Fuentes zimmerman [facility] budesonide 2021-06 Yes severe .25mg Inhale Un yakov (PULMICORT) 2-09 chronic 0.25 mg by ity of 0.25 mg/2 12:30: obstructive nebulizati [place] mL 21 pulmonary on daily. nebulizer disease [facility] solution [facility] megestrol 2021-06 Yes 400mg Give 400 Uni vers (MEGACE) 40 2-09 mg per ity of mg/mL 12:30: G-tube. [place] suspension 21 MD Fuentes zimmerman [facility] HYDROcodone 2021-06- No Small cell 1{tbl} Take 1 Univers -acetaminop 2-07-08 carcinoma, tablet by ity of hen ([employer]) 00:00: 05:59 NOS of mouth [place] 5 mg-325 mg 00 :00 upper lobe, every 8 MD per tablet lung (eight) Bakari o <Right> hours as n needed for Cancer moderate Center pain for up to 30 days. HYDROcodone 2021-06- No Small cell 1{tbl} Take 1 Univers -acetaminop 2-02 28- carcinoma, tablet by ity of [place] ([place]) 00:00: 05:59 NOS of mouth [place] 5 mg-325 mg 00 :00 upper lobe, every 8 MD per tablet lung (eight) Bak[place] o <Right> hours as n needed for Cancer moderate Center pain for up to 30 days. 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 HYDROcodone 2021-06- No Small cell 1{tbl} Take 1 Univers -acetaminop 2-07-08 carcinoma, tablet by ity of hen ([employer]) 00:00: 05:59 NOS of mouth [place] 5 mg-325 mg 00 :00 upper lobe, every 8 MD per tablet lung (eight) Bak[place] o <Right> hours as n needed for Cancer moderate Center pain for up to 30 days. HYDROcodone 2021-06- No Small cell 1{tbl} Take 1 Univers -acetaminop 2-07-08 carcinoma, tablet by ity of hen ([employer]) 00:00: 05:59 NOS of mouth [place] 5 mg-325 mg 00 :00 upper lobe, every 8 MD per tablet lung (eight) Bak[place] o <Right> hours as n needed for Cancer moderate Center pain for up to 30 days. HYDROcodone 2021-06- No Small cell 1{tbl} Take 1 Univers -acetaminop 2-07-08 carcinoma, tablet by ity of hen ([employer]) 00:00: 05:59 NOS of mouth [place] 5 mg-325 mg 00 :00 upper lobe, every 8 MD per tablet lung (eight) Bak[place] o <Right> hours as n needed for Cancer moderate Center pain for up to 30 days. HYDROcodone 2021-06- No Small cell 1{tbl} Take 1 Univers -acetaminop 2-07-08 carcinoma, tablet by ity of hen ([employer]) 00:00: 05:59 NOS of mouth [place] 5 mg-325 mg 00 :00 upper lobe, every 8 MD per tablet lung (eight) [place] o <Right> hours as n needed for Cancer moderate Center pain for up to 30 days. HYDROcodone 2021-06- No Small cell 1{tbl} Take 1 Univers -acetaminop 2-02 28-09 carcinoma, tablet by ity of hen ([place]) 00:00: 05:59 NOS of mouth [place] [...] <Right> daily for n tablet 10 days. [facility] amoxicillin 2021-06- No Small cell 875mg Take 1 Univers -clavulanat 08-08 carcinoma, tablet ity of e 00:00: 05:59 NOS of (875 mg) [place] (AUGMENTIN) 00 :00 upper lobe, by mouth 875 mg-125 lung twice Anderso mg per <Right> daily for n tablet 10 days. [facility] amoxicillin 2021-06- No Small cell 875mg Take 1 Univers -clavulanat 08-08 carcinoma, tablet ity of e 00:00: 05:59 NOS of (875 mg) [place] (AUGMENTIN) 00 :00 upper lobe, by mouth 875 mg-125 lung twice Anderso mg per <Right> daily for n tablet 10 days. [facility] amoxicillin 2021-06- No Small cell 875mg Take 1 Univers -clavulanat 08-08 carcinoma, tablet ity of e 00:00: 05:59 NOS of (875 mg) [place] (AUGMENTIN) 00 :00 upper lobe, by mouth 875 mg-125 lung twice Anderso mg per <Right> daily for n tablet 10 days. [facility] amoxicillin 2021-06- No Small cell 875mg Take 1 Univers -clavulanat 08-08 carcinoma, tablet ity of e 00:00: 05:59 NOS of (875 mg) [place] (AUGMENTIN) 00 :00 upper lobe, by mouth 875 mg-125 lung twice Anderso mg per <Right> daily for n tablet 10 days. [facility] amoxicillin 2021-06- No Small cell 875mg Take 1 Univers -clavulanat 08-08 carcinoma, tablet ity of e 00:00: 05:59 NOS of (875 mg) [place] (AUGMENTIN) 00 :00 upper lobe, by mouth 875 mg-125 lung twice Anderso mg per <Right> daily for n tablet 10 days. [facility] amoxicillin 2021-06- No Small cell 875mg Take 1 Univers -clavulanat 08-08 carcinoma, tablet ity of e 00:00: 05:59 NOS of (875 mg) [place] (AUGMENTIN) 00 :00 upper lobe, by mouth 875 mg-125 lung twice Anderso mg per <Right> daily for n tablet 10 days. [facility] amoxicillin 2021-06- No Small cell 875mg Take 1 Univers -clavulanat 08-08 carcinoma, tablet ity of e 00:00: 05:59 NOS of (875 mg) [place] (AUGMENTIN) 00 :00 upper lobe, by mouth 875 mg-125 lung twice Anderso mg per <Right> daily for n tablet 10 days. [facility] amoxicillin 2021-06- No Small cell 875mg Take 1 Univers -clavulanat 08-08 carcinoma, tablet ity of e 00:00: 05:59 NOS of (875 mg) [place] (AUGMENTIN) 00 :00 upper lobe, by mouth 875 mg-125 lung twice Anderso mg per <Right> daily [facility] n [facility] Take 1 Univer s (PROAMATINE 1-14 tablet (5 ity of ) 5 mg 00:00: mg) by [place] tablet 00 mouth MD twice [facility]. [facility] Yes 5[facility] Take 1 Univer s (PROAMATINE 1-14 tablet (5 ity of ) 5 mg 00:00: mg) by [place] tablet 00 mouth MD twice Anders[place] daily. [facility] Yes 5mg Take 1 Univer s (PROAMATINE 1-14 tablet (5 ity of ) 5 mg 00:00: mg) by [place] tablet 00 mouth MD twice Anderso daily. [facility] Yes 5mg Take 1 Univer s (PROAMATINE 1-14 tablet (5 ity of ) 5 mg 00:00: mg) by [place] tablet 00 mouth MD twice Anders[facility]. [facility] Yes 5mg Take 1 Univer s (PROAMATINE 1-14 tablet (5 ity of ) 5 mg 00:00: mg) by [place] tablet 00 mouth MD twice Anderso daily. n [facility] midodrine 2021-06 Yes 5mg Take 1 Univer s (PROAMATINE 1-14 tablet (5 ity of ) 5 mg 00:00: mg) by [place] tablet 00 mouth MD twice Anderso daily. [facility] Yes 5mg Take 1 Univer s (PROAMATINE 1-14 tablet (5 ity of ) 5 mg 00:00: mg) by [place] tablet 00 mouth MD twice Anderso daily. [facility] Yes 5mg Take 1 Univer s (PROAMATINE 1-14 tablet (5 ity of ) 5 mg 00:00: mg) by [place] tablet 00 mouth MD twice Anderso daily. n [facility] Yes 5mg Take 1 Univer s (PROAMATINE 1-14 tablet (5 ity of ) 5 mg 00:00: mg) by [place] tablet 00 mouth MD twice Anderso daily. n [facility] nystatin 2021-06 Yes [id number] Take 5 mL U nivers (MYCOSTATIN 1-03 (500,000 ity of ) 100,000 00:00: Units) by [place] units/mL 00 mouth MD suspension every 8 Bakari o (eight) n hours. [facility] nystatin 2021-06 Yes [id number] Take 5 mL U nivers (MYCOSTATIN 1-03 (500,000 ity of ) 100,000 00:00: Units) by [place] units/mL 00 mouth MD suspension every 8 Bakari o (eight) n hours. [facility] nystatin 2021-06 Yes 5mL Take 5 mL Univ ers (MYCOSTATIN 1-03 (500,000 ity of ) 100,000 00:00: Units) by [place] units/mL 00 mouth MD suspension every 8 [place]ari o (eight) n hours. [facility] nystatin 2021-06 Yes 5mL Take 5 mL Univ ers (MYCOSTATIN 1-03 (500,000 ity of ) 100,000 00:00: Units) by [place] units/mL 00 mouth MD suspension every 8 Bakari o (eight) n hours. [facility] nystatin 2021-06 Yes 5mL Take 5 mL Univ ers (MYCOSTATIN 1-03 (500,000 ity of ) 100,000 00:00: Units) by [place] units/mL 00 mouth MD suspension every 8 [place]ari o (eight) n hours. [facility] nystatin 2021-06 Yes 5mL Take 5 mL Univ ers (MYCOSTATIN 1-03 (500,000 ity of ) 100,000 00:00: Units) by [place] units/mL 00 mouth MD suspension every 8 [place] o (eight) n hours. [facility] nystatin 2021-06 Yes 5mL Take 5 mL Univ ers (MYCOSTATIN 1-03 (500,000 ity of ) 100,000 00:00: Units) by [place] units/mL 00 mouth MD suspension every 8 [place]ari o (eight) n hours. [facility] nystatin 2021-06 No 5mL Take 5 mL Uni vers (MYCOSTATIN 1-03 07-26 (500,000 ity of ) 100,000 00:00: 00:00 Units) by [place] units/mL 00 :00 mouth MD suspension every 8 Bakari o (eight) n hours. [facility] nystatin 2021-06 No 5mL Take 5 mL Uni vers (MYCOSTATIN 1-03 07-26 (500,000 ity of ) 100,000 00:00: 00:00 Units) by [place] units/mL 00 :00 mouth MD suspension every 8 Bakari o (eight) n hours. [facility] QUEtiapine Yes Anxiety 25mg Take 1 [...] tablet otherwise daily. [place] o specified n [facility] levoFLOXaci Yes Upper 500mg Take 1 Un yakov n 5-06 respiratory tablet ity of (Levaquin) 00:00: infection, (500 mg) [place] 500 mg 00 not by mouth MD tablet otherwise daily. [place] o specified n [facility] levoFLOXaci Yes Upper 500mg Take 1 Un yakov n 5-06 respiratory tablet ity of (Levaquin) 00:00: infection, (500 mg) [place] 500 mg 00 not by mouth MD tablet otherwise daily. [place] o specified n [facility] levoFLOXaci Yes Upper 500mg Take 1 Un yakov n 5-06 respiratory tablet ity of (Levaquin) 00:00: infection, (500 mg) [place] 500 mg 00 not by mouth MD tablet otherwise daily. Bak[place] o specified n [facility] levoFLOXaci Yes Upper 500mg Take 1 Un yakov n 5-06 respiratory tablet ity of (Levaquin) 00:00: infection, (500 mg) [place] 500 mg 00 not by mouth MD tablet otherwise daily. Bakari o specified [facility] fluconazole 2021- No Candidal 200mg Take 1 Univers (Diflucan) 10-25 05-03 esophagitis tablet ity of 200 mg 00:00: 04:59 (200 mg) [place] tablet 00 :00 by mouth MD daily for Anderso 4 days. [facility] fluconazole 2021- No [place] 200mg Take 1 Univers (Diflucan) 10-25 05-03 esophagitis tablet ity of 200 mg 00:00: 04:59 (200 mg) [place] tablet 00 :00 by mouth MD daily for Anderso 4 days. [facility] fluconazole 2021- No [place] 200mg Take 1 Univers (Diflucan) 10-25 05-03 esophagitis tablet ity of 200 mg 00:00: 04:59 (200 mg) [place] tablet 00 :00 by mouth MD daily for Anderso 4 days. [facility] fluconazole 2021- No [place] 200mg Take 1 Univers (Diflucan) 10-25 05-03 esophagitis tablet ity of 200 mg 00:00: 04:59 (200 mg) [place] tablet 00 :00 by mouth MD daily for Anderso 4 days. [facility] fluconazole 2021- No [place] 200mg Take 1 Univers (Diflucan) 10-25- esophagitis tablet ity of 200 mg 00:00: 04:59 (200 mg) [place] tablet 00 :00 by mouth MD daily for Anderso 4 days. n [facility] fluconazole 2021- No Candidal 200mg Take 1 Univers (Diflucan) 10-25- esophagitis tablet ity of 200 mg 00:00: 04:59 (200 mg) [place] tablet 00 :00 by mouth MD daily for Anderso 4 days. n [facility] fluconazole 2021- No Candidal 200mg Take 1 Univers (Diflucan) 10-25- esophagitis tablet ity of 200 mg 00:00: 04:59 (200 mg) [place] tablet 00 :00 by mouth MD daily for Anderso 4 days. n [facility] promethazin 2021- No 12.5mg Take 12.5 [...] [place] 03 :00 [place] Fuentes zimmerman [facility] promethazin 2021- No 12.5mg Take 12.5 [...] [place] 03 :00 [place] Fuentes zimmerman [facility] promethazin 2021- No 12.5mg Take 12.5 [...] 03 :00 MD Fuentes zimmerman Cancer [facility] 2021- No 12.5mg Take [...] 03 :00 MD Fuentes zimmerman Cancer [facility] 2021- No 12.5mg Take 12.5 Univers e 4-27 mg by ity of (PHENERGAN) 18:27: 00:00 [place] 12.5 mg 03 :00 every 6 MD tablet (six) Anderso hours as n needed. [facility] aspirin 81 2021-2021- No 81mg Take 81 mg Univers mg EC 10-24- by mouth ity of tablet 18:27: 00:00 [place]. [place] 03 :00 [place] Fuentes zimmerman [facility] 2021- No 12.5mg Take 12.5 Univers e 4-27 mg by ity of (PHENERGAN) 18:27: 00:00 [place] 12.5 mg 03 :00 every 6 MD tablet (six) Anderso hours as n needed. Cancer Center aspirin 81 2021-2021- No 81mg Take 81 mg Univers mg EC 10-24-27 by mouth ity of tablet 18:27: 00:00 [place]. [place] 03 :00 [place] Fuentes zimmerman Cancer [facility] 2021- No 12.5mg Take 12.5 Univers e 4-24 10-27 mg by ity of (PHENERGAN) 18:27: 00:00 mouth [place] 12.5 mg 03 :00 every 6 MD tablet (six) Anderso hours as n needed. Cancer Center aspirin 81 2021- No 81mg Take 81 mg Univers mg EC 10-2427 by mouth ity of tablet 18:27: 00:00 as needed. [place] 03 :00 [place] Fuentes zimmerman [facility] atorvastati Yes 40mg Take 40 mg Univers n (LIPITOR) 10-24 by mouth ity of 40 mg 18:26: daily. 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 ity of L 62.5-25 18:26: [place] mcg/actuati [address] [facility] 400mg Give 400 Uni vers (MEGACE) 40 4-27 mg per ity of mg/mL 18:26: G-tube. [place] suspension 55 MD Fuentes zimmerman [facility] atorvastati Yes 40mg Take 40 mg Univers n (LIPITOR) 10-24 by mouth ity of 40 mg 18:26: daily. 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 ity of L 62.5-25 18:26: [place] mcg/actuati 55 on dsdv Anderso [facility] megestrol Yes 400mg Give 400 Uni vers (MEGACE) 40 4-27 mg per ity of mg/mL 18:26: G-tube. [place] suspension 55 MD Fuentes zimmerman [facility] atorvastati Yes 40mg Take 40 mg Univers n (LIPITOR) 10-24 by mouth ity of 40 mg 18:26: daily. [place] tablet 55 MD Fuentes zimmerman [facility] budesonide Yes severe .25mg Inhale Un yakov (PULMICORT) 10-24 chronic 0.25 mg by ity of 0.25 mg/2 18:26: obstructive nebulizati [place] mL 55 pulmonary on daily. nebulizer disease Anderso solution n [facility] umeclidiniu Yes Inhale by U nivers m-vilantero 10-24 mouth. ity of L 62.5-25 18:26: [place] mcg/actuati 55 MD on dsdv [facility] megestrol Yes 400mg Give 400 Uni vers (MEGACE) 40 - mg per ity of mg/mL 18:26: G-tube. [place] suspension 55 MD Fuentes zimmerman [facility] ipratropium Yes Pneumocysto 3mL Inhale 1 [...] day before n meals and Cancer nightly. [place] QUEtiapine Yes Adjustment 75mg Take 3 Univers [...] mg 00:00: with mixed (75 mg) by [place] tablet 00 anxiety and mouth at MD [...] mg 00:00: with mixed (75 mg) by [place] tablet 00 anxiety and mouth at MD [...] Yes Pneumonia 600mg Take 1 Univers (MUCINEX) - due to tablet ity of 600 mg [...] mg 00:00: with mixed (75 mg) by [place] tablet 00 anxiety and mouth at MD [...] day before n meals and Cancer nightly. [place] QUEtiapine Yes Adjustment 75mg Take 3 Univers [...] specified daily for n tablet 7 days. [facility] amoxicillin 2021- No Upper 875mg Take 1 U nivers -clavulanat 10-11 respiratory tablet ity of e 00:00: 00:00 infection, (875 mg) [place] (Augmentin) 00 :00 not by mouth 875 mg-125 otherwise twice And erso mg per specified daily for n tablet 7 days. [facility] amoxicillin 2021- No Upper 875mg Take 1 U nivers -clavulanat 10-11 respiratory tablet ity of e 00:00: 00:00 infection, (875 mg) [place] (Augmentin) 00 :00 not by mouth 875 mg-125 otherwise twice And erso mg per specified daily for n tablet 7 days. [facility] amoxicillin 2021- No Upper 875mg Take 1 U nivers -clavulanat 10-11 respiratory tablet ity of e 00:00: 00:00 infection, (875 mg) [place] (Augmentin) 00 :00 not by mouth 875 mg-125 otherwise twice And erso mg per specified daily for n tablet 7 days. [facility] amoxicillin 2021- No Upper 875mg Take 1 U nivers -clavulanat 10-11 respiratory tablet ity of e 00:00: 00:00 infection, (875 mg) [place] (Augmentin) 00 :00 not by mouth MD 875 mg-125 otherwise twice And erso mg per specified daily for n tablet 7 days. [facility] amoxicillin 2021- No Upper 875mg Take 1 U nivers -clavulanat 10-11 respiratory tablet ity of e 00:00: 00:00 infection, (875 mg) [place] (Augmentin) 00 :00 not by mouth 875 mg-125 otherwise twice And erso mg per specified daily for n tablet 7 days. [facility] amoxicillin 2021- No Upper 875mg Take 1 U nivers -clavulanat 10-11 respiratory tablet ity of e 00:00: 00:00 infection, (875 mg) [place] (Augmentin) 00 :00 not by mouth 875 mg-125 otherwise twice And erso mg per specified daily for n tablet 7 days. [facility] amoxicillin 2021- No Decompensat 875mg Take 1 Univers -clavulanat 10-10 ed COPD tablet it y of e 00:00: 00:00 with acute (875 mg) [place] (Augmentin) 00 :00 exacerbatio by mouth 875 mg-125 n twice [place]o mg per daily for n tablet 5 days. [facility] amoxicillin 2021- No Decompensat 875mg Take 1 Univers -clavulanat 10-10 ed COPD tablet it y of e 00:00: 00:00 with acute (875 mg) [place] (Augmentin) 00 :00 exacerbatio by mouth 875 mg-125 n twice Anderso mg per daily for n tablet 5 days. [facility] amoxicillin 2021- No Decompensat 875mg Take 1 Univers -clavulanat 10-10 ed COPD tablet it y of e 00:00: 00:00 with acute (875 mg) [place] (Augmentin) 00 :00 exacerbatio by mouth 875 mg-125 n twice Anderso mg per daily for n tablet 5 days. [facility] amoxicillin 2021- No Decompensat 875mg Take 1 Univers -clavulanat 10-1014 ed COPD tablet it y of e 00:00: 00:00 with acute (875 mg) [place] (Augmentin) 00 :00 exacerbatio by mouth MD 875 mg-125 n twice Anderso mg per daily for n tablet 5 days. [facility] amoxicillin 2021- No Decompensat 875mg Take 1 Univers -clavulanat 10-10 ed COPD tablet it y of e 00:00: 00:00 with acute (875 mg) [place] (Augmentin) 00 :00 exacerbatio by mouth MD 875 mg-125 n twice Anderso mg per daily for n tablet 5 days. [facility] amoxicillin 2021- No Decompensat 875mg Take 1 Univers -clavulanat 10-10 ed COPD tablet it y of e 00:00: 00:00 with acute (875 mg) [place] (Augmentin) 00 :00 exacerbatio by mouth 875 mg-125 n twice Anderso mg per daily for n tablet 5 days. [facility] amoxicillin 2021- No Decompensat 875mg Take 1 Univers -clavulanat 10-10 ed COPD tablet it y of e 00:00: 00:00 with acute (875 mg) [place] (Augmentin) 00 :00 exacerbatio by mouth MD 875 mg-125 n twice Anderso mg per daily for n tablet 5 days. [facility] acetaminoph Yes Neoplasm 1{tbl} Take 1 [...] Center non-violen t agitation. amoxicillin 2021- No [facility] 875mg Take 1 Univers -clavulanat 09-07 acquired tablet i ty of e 00:00: 04:59 pneumonia (875 mg) [place] (AUGMENTIN) 00 :00 by mouth 875 mg-125 every 12 [place] so mg per (twelve) n tablet hours for Cancer 3 days. [place] amoxicillin 2021-2021- No [facility] 875mg Take 1 Univers -clavulanat 09-07 acquired tablet i ty of e 00:00: 04:59 pneumonia (875 mg) [place] (AUGMENTIN) 00 :00 by mouth 875 mg-125 every 12 [place] so mg per (twelve) n tablet hours for Cancer 3 days. [place] amoxicillin 2021-2021- No [facility] 875mg Take 1 Univers -clavulanat 09-07 acquired tablet i ty of e 00:00: 04:59 pneumonia (875 mg) [place] (AUGMENTIN) 00 :00 by mouth 875 mg-125 every 12 [place] so mg per (twelve) n tablet hours for Cancer 3 days. [place] amoxicillin 2021- No [facility] 875mg Take 1 Univers -clavulanat 09-07 acquired tablet i ty of e 00:00: 04:59 pneumonia (875 mg) [place] (AUGMENTIN) 00 :00 by mouth 875 mg-125 every 12 [place] so mg per (twelve) n tablet hours for Cancer 3 days. [place] amoxicillin 2021 No [facility] 875mg Take 1 Univers -clavulanat 09-07 acquired tablet i ty of e 00:00: 04:59 pneumonia (875 mg) [place] (AUGMENTIN) 00 :00 by mouth MD 875 mg-125 every 12 [place] so mg per (twelve) n tablet hours for Cancer 3 days. [place] amoxicillin 2021- No [facility] 875mg Take 1 Univers -clavulanat 09-07 acquired tablet i ty of e 00:00: 00:00 pneumonia (875 mg) [place] (AUGMENTIN) 00 :00 by mouth MD 875 mg-125 every 12 [place] so mg per (twelve) n tablet hours for Cancer 3 days. [place] [facility] 1 [facility] -clavulanat 09-07 acquired tablet i ty of e 00:00: 00:00 pneumonia (875 mg) [place] (AUGMENTIN) 00 :00 by mouth MD 875 mg-125 every 12 [place] so mg per (twelve) n tablet hours for Cancer 3 days. [place] [facility]icillin [id number] 875mg Take 1 [facility] -clavulanat 09-07 acquired tablet i ty of e 00:00: 00:00 pneumonia (875 mg) [place] (AUGMENTIN) 00 :00 by mouth MD 875 mg-125 every 12 [place] so mg per (twelve) n tablet hours for Cancer 3 days. [place] amoxicillin 2021- No [facility] 875mg Take 1 Univers -clavulanat 09-07 acquired tablet i ty of e 00:00: 00:00 pneumonia (875 mg) [place] (AUGMENTIN) 00 :00 by mouth MD 875 mg-125 every 12 [place] so mg per (twelve) n tablet hours for Cancer 3 days. [place] amoxicillin 2021- No [facility] 875mg Take 1 Univers -clavulanat 09-07 acquired tablet i ty of e 00:00: 00:00 pneumonia (875 mg) [place] (AUGMENTIN) 00 :00 by mouth MD 875 mg-125 every 12 [place] so mg per (twelve) n tablet hours for Cancer 3 days. [place] amoxicillin [facility] 875mg Take 1 Univers -clavulanat 09-07 acquired tablet i ty of e 00:00: 00:00 pneumonia (875 mg) [place] (AUGMENTIN) 00 :00 by mouth MD 875 mg-125 every 12 [place] so mg per (twelve) n tablet hours for Cancer 3 days. [place] amoxicillin 2021 [facility] 875mg Take 1 Univers -clavulanat 09-07 acquired tablet i ty of e 00:00: 00:00 pneumonia (875 mg) [place] (AUGMENTIN) 00 :00 by mouth MD 875 mg-125 every 12 [place] so mg per (twelve) n tablet hours for Cancer 3 days. [place] amoxicillin 2021- [facility] 875mg Take 1 Univers -clavulanat 09-07 acquired tablet i ty of e 00:00: 00:00 pneumonia (875 mg) [place] (AUGMENTIN) 00 :00 by mouth 875 mg-125 every 12 [place] so mg per (twelve) n tablet hours for Cancer 3 days. [place] amoxicillin 2021 [facility] 875mg Take 1 Univers -clavulanat 09-07 acquired tablet i ty of e 00:00: 00:00 pneumonia (875 mg) [place] (AUGMENTIN) 00 :00 by mouth MD 875 mg-125 every 12 [place] so mg per (twelve) n tablet hours for Cancer 3 days. [place] amoxicillin 2021 [facility] 875mg Take 1 Univers -clavulanat 09-07 acquired tablet i ty of e 00:00: 00:00 pneumonia (875 mg) [place] (AUGMENTIN) 00 :00 by mouth MD 875 mg-125 every 12 [place] so mg per (twelve) n tablet hours for Cancer 3 days. [place] HYDROcodone No Adjustment 1{tbl} Take 1 [facility] -acetaminop 08-18 disorder tablet by celia ([place]) 00:00: 00:00 with mixed mouth [place] 5 mg-325 mg 00 :00 anxiety and every 6 MD per tablet depressed (six) And erso mood hours as n needed for Cancer moderate Center pain for up to 30 days. HYDROcodone 2021- No Adjustment 1{tbl} Take 1 Univers -acetaminop 2-19 -11 disorder tablet by ity of [employer] ([employer]) 00:00: 00:00 with mixed mouth [place] 5 mg-325 mg 00 :00 anxiety and every 6 MD per tablet depressed (six) And erso mood hours as n needed for Cancer moderate Center pain for up to 30 days. HYDROcodone 2021- No Adjustment 1{tbl} Take 1 Univers -acetaminop 2-19 -11 disorder tablet by ity of [employer] ([employer]) 00:00: 00:00 with mixed mouth [place] 5 mg-325 mg 00 :00 anxiety and every 6 MD per tablet depressed (six) And erso mood hours as n needed for Cancer moderate Center pain for up to 30 days. HYDROcodone 2021- No Adjustment 1{tbl} Take 1 Univers -acetaminop 2-15 09-11 disorder tablet by ity of [employer] ([employer]) 00:00: 00:00 with mixed mouth [place] 5 mg-325 mg 00 :00 anxiety and every 6 MD per tablet depressed (six) And erso mood hours as n needed for Cancer moderate Center pain for up to 30 days. HYDROcodone 2021- No Adjustment 1{tbl} Take 1 Univers -acetaminop 2-15 09-11 disorder tablet by [employer] of [employer] ([employer]) 00:00: 00:00 with mixed mouth [place] 5 mg-325 mg 00 :00 anxiety and every 6 MD per tablet depressed (six) And erso mood hours as n needed for Cancer moderate Center pain for up to 30 days. QUEtiapine 2021- No Adjustment 75mg Take 3 Univers (SEROquel) 2-15 -27 disorder tablets i ty of 25 mg 00:00: 00:00 with mixed (75 mg) by [place] tablet 00 :00 anxiety and mouth at MD depressed bedtime. [facility] o mood [facility] QUEtiapine 2021- No Adjustment 75mg Take 3 Univers (SEROquel) 2-15 -27 disorder tablets i ty of 25 mg [...] anxiety and mouth at MD depressed bedtime. [facility] QUEtiapine 2021- No Adjustment 75mg Take 3 Univers (SEROquel) 08-14 disorder tablets i ty of 25 mg 00:00: 00:00 with mixed (75 mg) by [place] tablet 00 :00 anxiety and mouth at MD depressed bedtime. [facility] QUEtiapine 2021- No Adjustment 75mg Take 3 Univers (SEROquel) 08-14 disorder tablets i ty of 25 mg 00:00: 00:00 with mixed (75 mg) by [place] tablet 00 :00 anxiety and mouth at ME depressed bedtime. [facility] QUEtiapine 2021- No Adjustment 75mg Take 3 Univers (SEROquel) 08-14 disorder tablets i ty of 25 mg 00:00: 00:00 with mixed (75 mg) by [place] tablet 00 :00 anxiety and mouth at ME depressed bedtime. [facility] QUEtiapine 2021- No Adjustment 75mg Take 3 Univers (SEROquel) 08-14 disorder tablets i ty of 25 mg 00:00: 00:00 with mixed (75 mg) by [place] tablet 00 :00 anxiety and mouth at MD depressed bedtime. [facility] HYDROcodone 2021- No Adjustment 1{tbl} Take 1 Univers -acetaminop 08-14 disorder tablet by ity of hen ([place]) 00:00: 00:00 with mixed mouth [place] 5 mg-325 mg 00 :00 anxiety and every 6 MD per tablet depressed (six) And erso mood hours as n needed for Cancer moderate Center pain for up to 30 days. HYDROcodone 2021- No Adjustment 1{tbl} Take 1 Univers -acetaminop 208-18 disorder tablet by ity of hen ([place]) 00:00: 00:00 with mixed mouth [place] 5 mg-325 mg 00 :00 anxiety and every 6 MD per tablet depressed (six) And erso mood hours as n needed for Cancer moderate Center pain for up to 30 days. HYDROcodone 2021- No Adjustment 1{tbl} Take 1 Univers -acetaminop 2-15 -19 disorder tablet by ity of hen ([place]) 00:00: 00:00 with mixed mouth [place] 5 mg-325 mg 00 :00 anxiety and every 6 MD per tablet depressed (six) And erso mood hours as n needed for Cancer moderate Center pain for up to 30 days. 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, TABLET(10 ity of 10 mg 00:00: NOS of MG) BY [place] tablet upper lobe, MOUTH lung TWICE [place] <Right> 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, TABLET(10 ity of 10 mg 00:00: NOS of MG) BY [place] tablet upper lobe, MOUTH lung TWICE [place] <Right> 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, TABLET(10 ity of 10 mg 00:00: NOS of MG) BY [place] tablet upper lobe, MOUTH lung TWICE [place]o <Right> 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, TABLET(10 ity of 10 mg 00:00: NOS of MG) BY [place] tablet 00 upper lobe, MOUTH lung TWICE [place]o <Right> 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, TABLET(10 ity of 10 mg 00:00: NOS of MG) BY [place] tablet 00 upper lobe, MOUTH lung TWICE [place] <Right> DAILY [facility] 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 Aspiration TAKE 1 Univers e 1-28 into lower TABLET(40 ity of (PROTONIX) 00:00: respiratory MG) BY [place] 40 mg EC 00 tract MOUTH MD tablet [facility]ol Yes Aspiration TAKE 1 Univers e 1-28 into lower TABLET(40 ity of (PROTONIX) 00:00: respiratory MG) BY [place] 40 mg EC 00 tract MOUTH MD tablet DAILY [facility] pantoprazol Yes Aspiration TAKE 1 Univers e 1-28 into lower TABLET(40 ity of (PROTONIX) 00:00: respiratory MG) BY [place] 40 mg EC 00 tract MOUTH MD tablet DAILY [facility] pantoprazol Yes Aspiration TAKE 1 Univers e 1-28 into lower TABLET(40 ity of (PROTONIX) 00:00: respiratory MG) BY [place] 40 mg EC 00 tract MOUTH MD tablet DAILY [facility] pantoprazol Yes Aspiration TAKE 1 Univers e 1-28 into lower TABLET(40 ity of (PROTONIX) 00:00: respiratory MG) BY [place] 40 mg EC 00 tract MOUTH MD tablet DAILY [facility] pantoprazol Yes Aspiration TAKE 1 Univers e 1-28 into lower TABLET(40 ity of (PROTONIX) 00:00: respiratory MG) BY [place] 40 mg EC 00 tract MOUTH MD tablet DAILY [facility] pantoprazol Yes Aspiration TAKE 1 Univers e 1-28 into lower TABLET(40 ity of (PROTONIX) 00:00: respiratory MG) BY [place] 40 mg EC 00 tract MOUTH MD tablet DA[facility] Yes Aspiration TAKE 1 Univers e 1-28 into lower TABLET(40 ity of (PROTONIX) 00:00: respiratory MG) BY [place] 40 mg EC 00 tract MOUTH MD tablet DAILY [facility] pant[facility]ol Yes Aspiration TAKE 1 Univers e 1-28 into lower TABLET(40 ity of (PROTONIX) 00:00: respiratory MG) BY [place] 40 mg EC 00 tract MOUTH MD tablet DAILY [facility] pantoprazol Yes Aspiration TAKE 1 Univers e 07-27 into lower TABLET(40 ity of (PROTONIX) 00:00: respiratory MG) BY [place] 40 mg EC 00 tract MOUTH MD tablet DAILY [facility] QUEtiapine 2021- No Adjustment 75mg Take 3 Univers (SEROquel) 07-11 disorder tablets i ty of 25 mg 00:00: 00:00 with mixed (75 mg) by [place] tablet 00 :00 anxiety and mouth at MD depressed bedtime. [facility] QUEtiapine 2021- No Adjustment 75mg Take 3 Univers (SEROquel) 07-11 disorder tablets i ty of 25 mg 00:00: 00:00 with mixed (75 mg) by [place] tablet 00 :00 anxiety and mouth at MD depressed bedtime. [facility] QUEtiapine 2021- No Adjustment 75mg Take 3 Univers (SEROquel) 07-11 disorder tablets i ty of 25 mg 00:00: 00:00 with mixed (75 mg) by [place] tablet 00 :00 anxiety and mouth at MD depressed bedtime. [facility] QUEtiapine 2021- No Adjustment 75mg Take 3 Univers (SEROquel) 07-11 disorder tablets i ty of 25 mg 00:00: 00:00 with mixed (75 mg) by [place] tablet 00 :00 anxiety and mouth at MD depressed bedtime. [facility] pantoprazol 2021- No [place] 40mg Take 1 Univers e 07-11 into lower tablet (40 it y of (PROTONIX) 00:00: 00:00 respiratory mg) by [place] 40 mg EC 00 :00 tract mouth MD tablet daily. [facility] pantoprazol 2021- No Aspiration 40mg Take 1 Univers e 07-11 into lower tablet (40 it y of (PROTONIX) 00:00: 00:00 respiratory mg) by [place] 40 mg EC 00 :00 tract mouth MD tablet daily. [facility] pantoprazol 2021- No Aspiration 40mg Take 1 Univers e 07-11 into lower tablet (40 it y of (PROTONIX) 00:00: 00:00 respiratory mg) by [place] 40 mg EC 00 :00 tract mouth MD tablet daily. [facility] pantoprazol 2021- No Aspiration 40mg Take 1 Univers e 07-11 into lower tablet (40 it y of (PROTONIX) 00:00: 00:00 respiratory mg) by [place] 40 mg EC 00 :00 tract mouth MD tablet daily. [facility] OLANZapine 2021- No Insomnia, 2.5mg [...] erso mg per specified daily. 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 [place] amoxicillin 2020-06- No Upper 875mg Take 1 U nivers -clavulanat 08-14 respiratory tablet ity of e 00:00: 00:00 infection, (875 mg) [place] (Augmentin) 00 :00 not by mouth MD 875 mg-125 otherwise twice And erso mg per specified daily. 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 [place] amoxicillin 2020-06 No Upper 875mg Take 1 U nivers -clavulanat 15 respiratory tablet ity of e 00:00: 00:00 infection, (875 mg) [place] (Augmentin) 00 :00 not by mouth MD 875 mg-125 otherwise twice And erso mg per specified daily. n tablet Cancer [facility] 2020-06- No Chronic 1{tbl} Take 1 Univers [...] mg per specified daily. 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 [place] amoxicillin 2020-06- No Upper 875mg Take 1 U nivers -clavulanat 2-06-27 respiratory tablet ity of e 00:00: 00:00 infection, (875 mg) [place] (Augmentin) 00 :00 not by mouth MD 875 mg-125 otherwise twice And erso mg per specified daily. n tablet Cancer [place] amoxicillin 2020-06- No Upper 875mg Take 1 [...] mg per specified daily. n tablet Cancer [place] baclofen 2020-06 Yes Muscle 10mg Take 1 [...] 00 :00 PRN back MD spasm. [facility] baclofen 2020-06- No Muscle Take 1/2 Un yakov (LIORESAL) 0- 11-18 spasm of tablet (5 ity of 10 mg 00:00: 00:00 back mg) PO q12 [place] tablet 00 :00 PRN back MD spasm. [facility] baclofen 2020-06- No Muscle Take 1/2 Un yakov (LIORESAL) 0- 11-18 spasm of tablet (5 ity of 10 mg 00:00: 00:00 back mg) PO q12 [place] tablet 00 :00 PRN back MD spasm. [facility] OLANZapine 2020-06- No Adjustment 2.5mg [...] And erso mg per specified daily. n [facility] amoxicillin 2020-06- No Upper 875mg Take 1 U nivers -clavulanat 0-15 -23 respiratory tablet ity of e 00:00: 00:00 infection, (875 mg) [place] (Augmentin) 00 :00 not by mouth 875 mg-125 otherwise twice And erso mg per specified daily. n tablet [facility] amoxicillin 2020-06- No Upper 875mg Take 1 U nivers -clavulanat 0-15 23 respiratory tablet ity of e 00:00: 00:00 infection, (875 mg) [place] (Augmentin) 00 :00 not by mouth 875 mg-125 otherwise twice And erso mg per specified daily. n tablet [facility] amoxicillin 2020-06- No Upper 875mg Take 1 U nivers -clavulanat 0-15 08-22 respiratory tablet ity of e 00:00: 00:00 infection, (875 mg) [place] (Augmentin) 00 :00 not by mouth 875 mg-125 otherwise twice And erso mg per specified daily. n [facility] 2020-06- No Small cell TAKE 1 Univers (NAMENDA) 014 carcinoma, TABLET(10 ity of 10 mg 00:00: 00:00 NOS of MG) BY [place] tablet 00 :00 upper lobe, MOUTH lung TWICE [place] <Right> DAILY [facility] 2020-06- No Small cell TAKE 1 Univers (NAMENDA) 0-14 carcinoma, TABLET(10 ity of 10 mg 00:00: 00:00 NOS of MG) BY [place] tablet 00 :00 upper lobe, MOUTH lung TWICE [place] <Right> DAILY [facility] 2020-06- No Small cell TAKE 1 Univers (NAMENDA) 0-14 carcinoma, TABLET(10 ity of 10 mg 00:00: 00:00 NOS of MG) BY [place] tablet 00 :00 upper lobe, MOUTH lung TWICE [place] <Right> DAILY [facility] 2020-06- No Small cell TAKE 1 Univers (NAMENDA) 0-12 0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, TABLET(10 ity of 10 mg 00:00: 00:00 NOS of MG) BY [place] tablet 00 :00 upper lobe, MOUTH MD lung TWICE [place] <Right> DAILY n [facility] amoxicillin 2020-06- No Upper 875mg Take 1 U nivers -clavulanat 0-09 10-15 respiratory tablet ity of e 00:00: 00:00 infection, (875 mg) [place] (Augmentin) 00 :00 not by mouth MD 875 mg-125 otherwise twice And erso mg per specified daily. n tablet [facility] amoxicillin 2020-06 No Upper 875mg Take 1 U nivers -clavulanat 0-09 10-15 respiratory tablet ity of e 00:00: 00:00 infection, (875 mg) [place] (Augmentin) 00 :00 not by mouth 875 mg-125 otherwise twice And erso mg per specified daily. n tablet [facility] pantoprazol 2021- No Aspiration 40mg Take 1 Univers e 03-29 into lower tablet (40 it y of (PROTONIX) 00:00: 00:00 respiratory mg) by [place] 40 mg EC 00 :00 tract mouth tablet daily. [facility] pantoprazol 2021- No Aspiration 40mg Take 1 Univers e 03-29 into lower tablet (40 it y of (PROTONIX) 00:00: 00:00 respiratory mg) by [place] 40 mg EC 00 :00 tract mouth tablet daily. [facility] pantoprazol 2021- No Aspiration 40mg Take 1 Univers e 03-29 into lower tablet (40 it y of (PROTONIX) 00:00: 00:00 respiratory mg) by [place] 40 mg EC 00 :00 tract mouth tablet daily. [facility] baclofen 2020- No Muscle Take 1/2 Un yakov (LIORESAL) 03-29 10-27 spasm of tablet (5 ity of 10 mg 00:00: 00:00 back mg) PO q12 [place] tablet 00 :00 PRN back MD spasm. [facility] baclofen 2020- No Muscle Take 1/2 Un y[place] (LIORESAL) 03-29 spasm of tablet (5 ity of 10 mg 00:00: 00:00 back mg) PO q12 [place] tablet 00 :00 PRN back MD spasm. [facility] baclofen 2020- No Muscle Take 1/2 Un yakov (LIORESAL) 03-29 spasm of tablet (5 ity of 10 mg 00:00: 00:00 back mg) PO q12 [place] tablet 00 :00 PRN back MD spasm. 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 [place] OLANZapine 2020- No Adjustment 2.5mg Take 1 [...] tablet 00 :00 PRN back spasm. [facility] baclofen 2020- No Muscle Take 1/2 Un ykaov (LIORESAL) 03-08 spasm of tablet (5 ity of 10 mg 00:00: 00:00 back mg) PO q12 [place] tablet 00 :00 PRN back spasm. [facility] baclofen 5 2020- No Muscle 5mg Take 5 mg Univers mg tab 03-08 spasm of by mouth ity of 00:00: 00:00 back every 12 [place] 00 :00 (twelve) MD hours. [facility] QUEtiapine 2021- No Aspiration 75mg 3 tablets Univers (SEROquel) 03-07 into lower (75 mg) by ity of 25 mg 00:00: 00:00 respiratory feeding [place] tablet 00 :00 tract tube route MD at [facility]. [facility] QUEtiapine 2021- No Aspiration 75mg 3 tablets Univers (SEROquel) 03-07 into lower (75 mg) by ity of 25 mg 00:00: 00:00 respiratory feeding [place] tablet 00 :00 tract tube route MD at [facility]. [facility] QUEtiapine 2021- No Aspiration 75mg 3 tablets Univers (SEROquel) 03-07 into lower (75 mg) by ity of 25 mg 00:00: 00:00 respiratory feeding [place] tablet 00 :00 tract tube route at [facility]. [facility] QUEtiapine 2020- No Aspiration 75mg 3 tablets Univers (SEROquel) 03-06 into lower (75 mg) by ity of 25 mg 00:00: 00:00 respiratory feeding [place] tablet 00 :00 tract tube route at [facility]. [facility] fluconazole 2020- No Acute 100mg Take 1 U nivers (DIFLUCAN) 03-03 kidney tablet ity of 100 mg 00:00: 04:59 injury due (100 mg) [place] tablet 00 :00 to by mouth hypovolemia daily for And erso 12 days. [facility] lidocaine 2021- No Acute 10mL [place]ish [...] 00:00: 00:00 injury due mL every 8 [place] (2%) 00 :00 to (eight) MD viscous [...] Ajay gonzales 00 :00 lobe of mouth right lung every 8 Bakari o (eight) n hours as Cancer needed for Center nausea or vomiting. 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 [facility] memantine 2020- No Small cell 10mg Take 1 Univers (Namenda) 03-02 10-12 carcinoma tablet (10 ity of 10 mg 00:00: 00:00 of upper mg) by [place] tablet 00 :00 lobe of mouth right lung twice Anderso daily. [facility] baclofen 5 2020- No Muscle 5mg Take 5 mg Univers mg tab 03-02 spasm of by mouth ity of 00:00: 00:00 back every 12 [place] 00 :00 (twelve) MD hours. [facility] pantoprazol 2020- No Aspiration 40mg Take 1 Univers e 02-28 into lower tablet (40 it y of (PROTONIX) 00:00: 00:00 respiratory mg) by [place] 40 mg EC 00 :00 tract mouth MD tablet daily. [facility] pantoprazol 2020- No Aspiration 40mg Take 1 Univers e 02-28 into lower tablet (40 it y of (PROTONIX) 00:00: 00:00 respiratory mg) by [place] 40 mg EC 00 :00 tract mouth tablet daily. [facility] loperamide Yes Aspiration 2mg Take 1 Univers (IMODIUM) 2 8-31 into lower capsule (2 ity of mg capsule 00:00: respiratory mg) by [place] [address] tract mouth MD every 8 [place] (eight) n hours as Cancer needed for Center diarrhea. Buy over the counter loperamide Yes Aspiration 2mg Take 1 Univers (IMODIUM) 2 8-31 into lower capsule (2 ity of mg capsule 00:00: respiratory mg) by [place] [address] tract mouth MD every 8 [place] (eight) n hours as Cancer needed for Center diarrhea. Buy over the counter loperamide Yes Aspiration 2mg Take 1 Univers (IMODIUM) 2 8-31 into lower capsule (2 ity of mg capsule 00:00: respiratory mg) by [place] [address] tract mouth MD every 8 [place] (eight) n hours as Cancer needed for Center diarrhea. Buy over the counter loperamide Yes Aspiration 2mg Take 1 Univers (IMODIUM) 2 8-31 into lower capsule (2 ity of mg capsule 00:00: respiratory mg) by [place] [address] tract mouth MD every 8 [place] (eight) n hours as Cancer needed for Center diarrhea. Buy over the counter loperamide Yes Aspiration 2mg Take 1 Univers (IMODIUM) 2 8-31 into lower capsule (2 ity of mg capsule 00:00: respiratory mg) by [place] [address] tract mouth MD every 8 [place] (eight) n hours as Cancer needed for Center diarrhea. Buy over the counter loperamide Yes Aspiration 2mg Take 1 Univers (IMODIUM) 2 8-31 into lower capsule (2 ity of mg capsule 00:00: respiratory mg) by [place] [address] tract mouth MD every 8 [place] (eight) n hours as Cancer needed for Center diarrhea. Buy over the counter loperamide Yes Aspiration 2mg Take 1 Univers (IMODIUM) 2 8-31 into lower capsule (2 ity of mg capsule 00:00: respiratory mg) by [place] [address] tract mouth MD every 8 [place] (eight) n hours as Cancer needed for Center diarrhea. Buy over the counter loperamide Yes Aspiration 2mg Take 1 Univers (IMODIUM) 2 8-31 into lower capsule (2 ity of mg capsule 00:00: respiratory mg) by [place] [address] tract mouth MD every 8 [place] (eight) n hours as Cancer needed for Center diarrhea. Buy over the counter loperamide Yes Aspiration 2mg Take 1 Univers (IMODIUM) 2 8-31 into lower capsule (2 ity of mg capsule 00:00: respiratory mg) by [place] [address] tract mouth MD every 8 [place] (eight) n hours as Cancer needed for Center diarrhea. Buy over the counter loperamide Yes Aspiration 2mg Take 1 Univers (IMODIUM) 2 8-31 into lower capsule (2 ity of mg capsule 00:00: respiratory mg) by [place] [address] tract mouth MD every 8 [place] (eight) n hours as Cancer needed for Center diarrhea. Buy over the counter loperamide Yes Aspiration 2mg Take 1 Univers (IMODIUM) 2 - into lower capsule (2 ity of mg capsule 00:00: respiratory mg) by [place] [address] tract mouth MD every 8 [place]o (eight) n hours as Cancer needed for Center diarrhea. Buy over the counter loperamide Yes Aspiration 2mg Take 1 Univers (IMODIUM) 2 -31 into lower capsule (2 ity of mg capsule 00:00: respiratory mg) by [place] [address] tract mouth MD every 8 [place]o (eight) [...] Center on. Buy over the counter senna 2020-2021- No Aspiration 2{tbl} Take 2 U nivers [...] 12 [place] syringe pulmonale (twelve) n hours. [facility] Center enoxaparin 2021- No Other 50mg Inject 0.5 Univers (Lovenox) 02-27 pulmonary mL (50 mg) ity of 60 mg/0.6 00:00: 00:00 embolism under the [place] mL 00 :00 with acute skin every MD prefilled cor 12 [place]o syringe pulmonale (twelve) n hours. [facility] Center enoxaparin 2021- No Other 50mg Inject 0.5 Univers (Lovenox) 02-27 pulmonary mL (50 mg) ity of 60 mg/0.6 00:00: 00:00 embolism under the [place] mL 00 :00 with acute skin every MD prefilled cor 12 [place]o syringe pulmonale (twelve) n hours. [facility] Center enoxaparin 2021- No Other [...] hours as n needed [facility]pain). [facility] Aspiration 1{tbl} Take 1 Univers n tab 7-23 into lower tablet by ity of tablet 00:00: respiratory mouth [place] 00 tract daily. [facility] Take 1 Univers n tab 7-23 into lower tablet by ity of tablet 00:00: respiratory mouth [place] as 00 tract daily. MD Fuentes zimmerman [facility] Yes Aspiration 1{tbl} Take 1 Univers n tab 7-23 into lower tablet by ity of tablet 00:00: respiratory mouth [place] 00 tract daily. MD Fuentes zimmerman [facility] Yes Aspiration 1{tbl} Take 1 Univers n tab 7-23 into lower tablet by ity of tablet 00:00: respiratory mouth [place] 00 tract daily. MD Fuentes zimmerman [facility] Yes Aspiration 1{tbl} Take 1 Univers n tab 7-23 into lower tablet by ity of tablet 00:00: respiratory mouth [place] 00 tract daily. MD Fuentes zimmerman [facility] Yes Aspiration 1{tbl} Take 1 Univers n tab 7-23 into lower tablet by ity of tablet 00:00: respiratory mouth [place] 00 tract daily. MD Fuentes zimmerman [facility] Yes Aspiration 1{tbl} Take 1 Univers n tab 7-23 into lower tablet by ity of tablet 00:00: respiratory mouth [place] 00 tract daily. MD Fuentes zimmerman [facility] Yes Aspiration 1{tbl} Take 1 Univers n tab 7-23 into lower tablet by ity of tablet 00:00: respiratory mouth [place] 00 tract daily. MD Fuentes zimmerman [facility] Yes Aspiration 1{tbl} Take 1 Univers n tab 7-23 into lower tablet by ity of tablet 00:00: respiratory mouth [place] as 00 tract daily. MD Fuentes zimmerman [facility] Yes Aspiration 1{tbl} Take 1 Univers n tab 7-23 into lower tablet by ity of tablet 00:00: respiratory mouth [place] 00 tract daily. MD Fuentes zimmerman [facility] Yes Aspiration 1{tbl} Take 1 Univers n tab 7-23 into lower tablet by ity of tablet 00:00: respiratory mouth [place] as 00 tract daily. MD Fuentes zimmerman [facility] 2021-0 Yes Aspiration 1{tbl} Take 1 Univers n tab 7-23 into lower tablet by ity of tablet 00:00: respiratory mouth [place]io as 00 tract daily. MD Fuentes zimmerman [facility] 2021- No 1{tbl} Take 1 Unive rs sulfate 325 7-22 05-17 tablet by it y of (65 FE) MG 00:00: 00:00 mouth [place] EC tablet 00 :00 daily. MD Fuentes zimmerman [facility] 2021- No 1{tbl} Take 1 Unive rs sulfate 325 7-22 05-17 tablet by it y of (65 FE) MG 00:00: 00:00 mouth [place] EC tablet 00 :00 daily. MD Fuentes zimmerman [facility] 2021- No 1{tbl} Take 1 Unive rs sulfate 325 7-22 05-17 tablet by it y of (65 FE) MG 00:00: 00:00 mouth [place] EC tablet 00 :00 daily. MD Fuentes zimmerman [facility] 2021- No 1{tbl} Take 1 Unive rs sulfate 325 7-22 05-17 tablet by it y of (65 FE) MG 00:00: 00:00 mouth [place] EC tablet 00 :00 daily. MD Fuentes zimmerman [facility] 2021- No 1{tbl} Take 1 Unive rs sulfate 325 7-22 05-17 tablet by it y of (65 FE) MG 00:00: 00:00 mouth [place] EC tablet 00 :00 daily. MD Fuentes zimmerman [facility] 2021- No 1{tbl} Take 1 Unive rs sulfate 325 7-22 05-17 tablet by it y of (65 FE) MG 00:00: 00:00 mouth [place] EC tablet 00 :00 daily. MD Fuentes zimmerman [facility] ferrous 2021- No 1{tbl} Take 1 Unive rs sulfate 325 7-22 05-17 tablet by it y of (65 FE) MG 00:00: 00:00 mouth [place] EC tablet 00 :00 daily. MD Fuentes zimmerman [facility] ferrous 2021- No 1{tbl} Take 1 Unive rs sulfate 325 7-22 05-17 tablet by it y of (65 FE) MG 00:00: 00:00 mouth [place] EC tablet 00 :00 daily. 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 [facility] ipratropium 2021- No Pneumocysto USE 1 VIAL Univers -albuterol [id number] sis VIA ity of (DUO-NEB) 00:00: 00:00 [...] Pneumocysto USE 1 VIAL Univers -albuterol 6-08 31-27 sis VIA ity of (DUO-NEB) 00:00: 00:00 pneumonia NEBULIZER [place] 0.5 mg-2.5 00 :00 EVERY 6 MD mg/3 mL HOURS Anderso nebulizer NEEDED FOR n solution [facility] SHORTNESS OF BREATH FOR UP TO 30 DAYS [email or web address] 2021- No Tube 250mL Give 250 Univers ired 21 -11 feeding mL per ity of digestive [...] MD every 12 Anderso (twelve) n hours. [facility] 2021- No Emphysema 600mg Take 1 Univers (MUCINEX) 10-0812 tablet ity of 600 mg 12 00:00: 04:59 (600 mg) [place] as hr tablet 00 :00 by mouth MD every 12 Anderso (twelve) n hours. [facility] 2021- No Emphysema 600mg Take 1 Univers (MUCINEX) 10-08 tablet ity of 600 mg 12 00:00: 04:59 (600 mg) [place] as hr tablet 00 :00 by mouth MD every 12 Anderso (twelve) n hours. [facility] 2021- No Emphysema 600mg Take 1 Univers (MUCINEX) 10-08 tablet ity of 600 mg 12 00:00: 04:59 (600 mg) [place] as hr tablet 00 :00 by mouth MD every 12 Anderso (twelve) n hours. [facility] 2021- No Emphysema 600mg Take 1 Univers (MUCINEX) 10-08 tablet ity of 600 mg 12 00:00: 04:59 (600 mg) [place]io as hr tablet 00 :00 by mouth MD every 12 Anderso (twelve) n hours. [facility] 2021- No Emphysema 600mg Take 1 Univers (MUCINEX) 10-08 tablet ity of 600 mg 12 00:00: 04:59 (600 mg) [place] hr tablet 00 :00 by mouth MD every 12 Anderso (twelve) n hours. [facility] 2021- No Emphysema 600mg Take 1 Univers (MUCINEX) 10-08 tablet ity of 600 mg 12 00:00: 04:59 (600 mg) [place] as hr tablet 00 :00 by mouth MD every 12 Anderso (twelve) n hours. [facility] Yes Type 2 1{each} 1 each by [facility] 10-06 diabetes [place] it[place] with twice [place] hyperglycem daily. Bakari o ia n [facility] Yes Type 2 1{each} 1 each by [facility] 10-06 diabetes [place] 00:[place] with twice [place] hyperglycem daily. Bakari o marci n [facility] lancets Yes Type 2 1{each} 1 each by [facility] 10-06 diabetes [place] it[place] o f 00:[place]: [place] with twice MD hyperglycem daily. Bakari o marci zimmerman [facility] lancets Yes Type 2 1{each} 1 each by [facility] 10-06 diabetes [place] ity o f 00:00: [place] route [place] with twice MD hyperglycem daily. Bakari o marci zimmerman [facility] lancets Yes Type 2 1{each} 1 each by [facility] 10-06 diabetes [place] ity o f 00:00: [place] with twice MD hyperglycem daily. Bakari o marci zimmerman [facility] lancets Yes Type 2 1{each} 1 each by [facility] 10-06 diabetes [place] it[place] o f 00:00: [place] with twice MD hyperglycem daily. Bakari o marci zimmerman [facility] lancets Yes Type 2 1{each} 1 each by [facility] 10-06 diabetes [place] ity o f 00:00: [place] route [place] 00 with twice MD hyperglycem daily. Bakari o marci zimmerman [facility] lancets Yes Type 2 1{each} 1 each by [facility] 10-06 diabetes [place] ity o f 00:00: [place] route [place] with twice MD hyperglycem daily. Bakari o marci zimmerman [facility] lancets Yes Type 2 1{each} 1 each by [facility] 10-06 diabetes [place] ity o f 00:00: [place] route [place] 00 with twice MD hyperglycem daily. Bakari o marci zimmerman [facility] lancets Yes Type 2 1{each} 1 each by [facility] 10-06 diabetes [place] ity o f 00:00: [place] route [place] 00 with twice MD hyperglycem daily. Bakari luis zimmerman [facility] lancets Yes Type 2 1{each} 1 each by [facility] 10-06 diabetes [place] ity o f 00:00: [place] route [place] 00 with twice MD hyperglycem daily. Bakari o ut erasmo [facility] lancets Yes Type 2 1{each} 1 each by [facility] 10-06 diabetes [place] ity o f 00:00: [place] route [place] 00 with twice hyperglycem daily. [facility] Immunizations Ordered Immunization Filled Date Status Comments Sour ce Name Immunization Name Pneumococcal 2022-03-24 Completed [facility] o f Polysaccharide 00:00:00 [place] [facility] [place] Pneumococcal 2022-03-24 Completed University o f Polysaccharide 00:00:00 [place] [facility] Pneumococcal 2022-03-24 Completed [facility] o f Polysaccharide 00:00:00 [place] [facility] 2022-03-24 Completed University o f Polysaccharide 00:00:00 [place] [facility] [place] Pneumococcal 2022-03-24 Completed University o f Polysaccharide 00:00:00 [place] [facility] [place] remdesivir 2020-08-22 Completed University of 00:00:00 [place] [facility] [place] remdesivir 2020-08-22 Completed University of 00:00:00 [place] [facility] [place] remdesivir 2020-08-22 Completed University of 00:00:00 [place] [facility] [place] remdesivir 2020-08-22 Completed University of 00:00:00 [place] [facility] [place] remdesivir 2020-08-22 Completed University of 00:00:00 [place] [facility] [place] remdesivir 2020-08-22 Completed University of 00:00:00 [place] [facility] [place] remdesivir 2020-08-22 Completed University of 00:00:00 [place] [facility] [place] remdesivir 2020-08-22 Completed University of 00:00:00 [place] [facility] [place] remdesivir 2020-08-22 Completed University of 00:00:00 [place] [facility] [place] remdesivir 2020-08-22 Completed University of 00:00:00 [place] [facility] remdesivir 2020-08-22 Completed University of 00:00:00 [place] [facility] remdesivir 2020-08-22 Completed [facility] of 00:00:00 [place] [facility] remdesivir 2020-08-22 Completed University of 00:00:00 [place] [facility] remdesivir 2020-08-22 Completed University of 00:00:00 [place] [facility] remdesivir 2020-08-22 Completed University of 00:00:00 [place] [facility] remdesivir 2020-08-22 Completed University of 00:00:00 [place] [facility] remdesivir 2020-08-22 Completed University of 00:00:00 [place] [facility] remdesivir 2020-08-22 Completed University of 00:00:00 [place] [facility] remdesivir 2020-08-22 Completed University of 00:00:00 [place] [facility] [place] remdesivir 2020-08-22 Completed University of 00:00:00 [place] [facility] remdesivir 2020-08-21 Completed [facility] of 00:00:00 [place] [facility] remdesivir 2020-08-21 Completed University of 00:00:00 [place] [facility] remdesivir 2020-08-21 Completed University of 00:00:00 [place] [facility] remdesivir 2020-08-21 Completed [facility] of 00:00:00 [place] [facility] remdesivir 2020-08-21 Completed [facility] of 00:00:00 [place] [facility] remdesivir 2020-08-21 Completed [facility] of 00:00:00 [place] [facility] remdesivir 2020-08-21 Completed University of 00:00:00 [place] [facility] remdesivir 2020-08-21 Completed University of 00:00:00 [place] [facility] remdesivir 2020-08-21 Completed University of 00:00:00 [place] [facility] remdesivir 2020-08-21 Completed University of 00:00:00 [place] [facility] remdesivir 2020-08-20 Completed University of 00:00:00 [place] [facility] remdesivir 2020-08-20 Completed University of 00:00:00 [place] [facility] remdesivir 2020-08-20 Completed University of 00:00:00 [place] [facility] remdesivir 2020-08-20 Completed University of 00:00:00 [place] [facility] remdesivir 2020-08-20 Completed University of 00:00:00 [place] [facility] remdesivir 2020-08-20 Completed University of 00:00:00 [place] [facility] remdesivir 2020-08-20 Completed [facility] of 00:00:00 [place] [facility] remdesivir 2020-08-20 Completed University of 00:00:00 [place] [facility] remdesivir 2020-08-20 Completed University of 00:00:00 [place] [facility] remdesivir 2020-08-20 Completed University of 00:00:00 [place] [facility] remdesivir 2020-08-19 Completed University of 00:00:00 [place] [facility] remdesivir 2020-08-19 Completed University of 00:00:00 [place] [facility] remdesivir 2020-08-19 Completed University of 00:00:00 [place] [facility] remdesivir 2020-08-19 Completed University of 00:00:00 [place] [facility] remdesivir 2020-08-19 Completed University of 00:00:00 [place] [facility] remdesivir 2020-08-19 Completed University of 00:00:00 [place] [facility] remdesivir 2020-08-19 Completed University of 00:00:00 [place] [facility] remdesivir 2020-08-19 Completed University of 00:00:00 [place] [facility] remdesivir 2020-08-19 Completed University of 00:00:00 [place] [facility] remdesivir 2020-08-19 Completed University of 00:00:00 [place] [facility] remdesivir 2020-08-18 Completed University of 00:00:00 [place] [facility] remdesivir 2020-08-18 Completed University of 00:00:00 [place] [facility] remdesivir 2020-08-18 Completed [facility] of 00:00:00 [place] [facility] remdesivir 2020-08-18 Completed University of 00:00:00 [place] [facility] remdesivir 2020-08-18 Completed University of 00:00:00 [place] [facility] remdesivir 2020-08-18 Completed [facility] of 00:00:00 [place] [facility] remdesivir 2020-08-18 Completed [facility] of 00:00:00 [place] [facility] remdesivir 2020-08-18 Completed [facility] of 00:00:00 [place] [facility] remdesivir 2020-08-18 Completed [facility] of 00:00:00 [place] [facility] remdesivir 2020-08-18 Completed [facility] of 00:00:00 [place] [facility] remdesivir 2020-08-03 Completed [facility] of 00:00:00 [place] [facility] remdesivir 2020-08-03 Completed [facility] of 00:00:00 [place] [facility] remdesivir 2020-08-03 Completed [facility] of 00:00:00 [place] [facility] remdesivir 2020-08-03 Completed [facility] of 00:00:00 [place] [facility] remdesivir 2020-08-03 Completed [facility] of 00:00:00 [place] [facility] remdesivir 2020-08-03 Completed [facility] of 00:00:00 [place] [facility] remdesivir 2020-08-03 Completed [facility] of 00:00:00 [place] [facility] remdesivir 2020-08-03 Completed [facility] of 00:00:00 [place] [facility] remdesivir 2020-08-03 Completed [facility] of 00:00:00 [place] [facility] remdesivir 2020-08-03 Completed [facility] of 00:00:00 [place] [facility] remdesivir 2020-08-02 Completed [facility] of 00:00:00 [place] [facility] remdesivir 2020-08-02 Completed [facility] of 00:00:00 [place] [facility] remdesivir 2020-08-02 Completed [facility] of 00:00:00 [place] [facility] remdesivir 2020-08-02 Completed University of 00:00:00 [place] [facility] remdesivir 2020-08-02 Completed [facility] of 00:00:00 [place] [facility] remdesivir 2020-08-02 Completed [facility] of 00:00:00 [place] [facility] remdesivir 2020-08-02 Completed [facility] of 00:00:00 [place] [facility] remdesivir 2020-08-02 Completed [facility] of 00:00:00 [place] [facility] remdesivir 2020-08-02 Completed [facility] of 00:00:00 [place] [facility] remdesivir 2020-08-02 Completed [facility] of 00:00:00 [place] [facility] remdesivir 2020-08-02 Completed University of 00:00:00 [place] [facility] [place] remdesivir 2020-08-02 Completed University of 00:00:00 [place] [facility] [place] remdesivir 2020-08-02 Completed University of 00:00:00 [place] [facility] remdesivir 2020-08-02 Completed University of 00:00:00 [place] [facility] [place] remdesivir 2020-08-02 Completed University of 00:00:00 [place] [facility] remdesivir 2020-08-02 Completed University of 00:00:00 [place] [facility] remdesivir 2020-08-02 Completed [facility] of 00:00:00 [place] [facility] remdesivir 2020-08-02 Completed [facility] of 00:00:00 [place] [facility] remdesivir 2020-08-02 Completed [facility] of 00:00:00 [place] [facility] remdesivir 2020-08-02 Completed [facility] of 00:00:00 [place] [facility] remdesivir 2020-08-01 Completed [facility] of 00:00:00 [place] [facility] remdesivir 2020-08-01 Completed [facility] of 00:00:00 [place] [facility] remdesivir 2020-08-01 Completed [facility] of 00:00:00 [place] [facility] remdesivir 2020-08-01 Completed [facility] of 00:00:00 [place] [facility] remdesivir 2020-08-01 Completed University of 00:00:00 [place] [facility] remdesivir 2020-08-01 Completed [facility] of 00:00:00 [place] [facility] remdesivir 2020-08-01 Completed [facility] of 00:00:00 [place] [facility] remdesivir 2020-08-01 Completed [facility] of 00:00:00 [place] [facility] remdesivir 2020-08-01 Completed [facility] of 00:00:00 [place] [facility] remdesivir 2020-08-01 Completed University of 00:00:00 [place] [facility] [place] remdesivir 2020-07-31 Completed University of 00:00:00 [place] [facility] [place] remdesivir 2020-07-31 Completed University of 00:00:00 [place] [facility] [place] remdesivir 2020-07-31 Completed University of 00:00:00 [place] [facility] [place] remdesivir 2020-07-31 Completed University of 00:00:00 [place] [facility] remdesivir 2020-07-31 Completed University of 00:00:00 [place] [facility] [place] remdesivir 2020-07-31 Completed University of 00:00:00 [place] [facility] remdesivir 2020-07-31 Completed University of 00:00:00 [place] [facility] [place] remdesivir 2020-07-31 Completed University of 00:00:00 [place] [facility] remdesivir 2020-07-31 Completed University of 00:00:00 [place] [facility] remdesivir 2020-07-31 Completed University of 00:00:00 [place] [facility] remdesivir 2020-07-30 Completed [facility] of 00:00:00 [place] [facility] remdesivir 2020-07-30 Completed [facility] of 00:00:00 [place] [facility] remdesivir 2020-07-30 Completed [facility] of 00:00:00 [place] [facility] remdesivir 2020-07-30 Completed University of 00:00:00 [place] [facility] [place] remdesivir 2020-07-30 Completed [facility] 00:00:00 [place] [facility] Com[facility] of 00:00:00 [place] [facility] [place] remdesivir 2020-07-30 Completed University of 00:00:00 [place] Isaac [facility] [place] remdesivir 2020-07-30 Completed University [facility] 00:00:00 [place] [facility] Completed [facility] 00:00:00 [place] MD Isaac [facility] remdesivir 2020-07-30 Completed University of 00:00:00 [place] Pon[place] Fernandes [facility] Influenza Split High 2020-03-29 Completed Univ ersity of Dose Preservative 00:00:[address] [facility] Zoster Recombinant 2020-03-29 Completed Univer sity of 00:00:00 [place] Fernandes [facility] Influenza Split High 2020-03-29 Completed Univ ersity of Dose Preservative 00:00:00 [place] M D Free Pon[place] Fernandes [facility] Zoster Recombinant 2020-03-29 Completed Univer sity of 00:00:00 Willis Fernandes [facility] Influenza Split High 2020-03-29 Completed Univ ersity of Dose Preservative 00:00:00 [place] M D Free Pon[place] Fernandes [facility] Zoster Recombinant 2020-03-29 Completed Univer sity of 00:00:00 Willis Fernandes [facility] Influenza Split High 2020-03-29 Completed Univ ersity of Dose Preservative 00:00:00 [place] M D Free Pon[place] Fernandes [facility] Zoster Recombinant 2020-03-29 Completed Univer sity of 00:00:00 Willis Fernandes [facility] Influenza Split High 2020-03-29 Completed Univ ersity of Dose Preservative 00:00:00 [place] [facility] Zoster Recombinant 2020-03-29 Completed Univer sity of 00:00:00 Willis Fernandes [facility] Influenza Split High 2020-03-29 Completed Univ ersity of Dose Preservative 00:00:00 [place] [facility] Zoster Recombinant 2020-03-29 Completed Univer sity of 00:00:00 [place] Fernandes [facility] Influenza Split High 2020-03-29 Completed Univ ersity of Dose Preservative 00:00:00 [place] [facility] Zoster Recombinant 2020-03-29 Completed Univer sity of 00:00:00 [place] [facility] Influenza Split High 2020-03-29 Completed Univ ersity of Dose Preservative 00:00:00 [place] [facility] Zoster Recombinant 2020-03-29 Completed Univer [facility]ity of 00:00:00 [place] [facility] Influenza Split High 2020-03-29 Completed Univ ersity of Dose Preservative 00:00:00 [place] [facility] Zoster Recombinant 2020-03-29 Completed Univer [facility]ity of 00:00:00 [place] [facility] Influenza Split High 2020-03-29 Completed Univ ersity of Dose Preservative 00:00:00 [place] [facility] Zoster Recombinant 2020-03-29 Completed Univer [facility]ity of 00:00:00 [place] [facility] remdesivir Unknown [facility] rem[facility] remdesivir [facility] remdesivir [facility] remdesivir [facility] remdesivir Unknown [facility] remdesivir Unknown [facility] remdesivir Unknown [facility] remdesivir Unknown [facility] remdesivir Unknown [facility] remdesivir Unknown [facility] remdesivir Unknown Com[facility] Influenza Split High Unknown Completed Univ ersity of Dose Preservative [place] [facility] Zoster Recombinant Unknown Completed [facility] Pneumococcal Unknown Completed [facility] remdesivir Unknown [facility] remdesivir [facility] remdesivir Unknown [facility] remdesivir Unknown [facility] remdesivir [facility] remdesivir Unknown [facility] remdesivir Unknown [facility] remdesivir Unknown [facility] [place] remdesivir Unknown Com[facility] remdesivir Unknown Com[facility] [place] remdesivir Unknown Completed [facility] [place] remdesivir Unknown Completed [facility] [place] Influenza Split High Unknown Completed [facility] ersity of Dose Preservative [place] M D Free [facility] Zoster Recombinant Unknown Completed [facility] [place] Pneumococcal Unknown Completed [place] [facility] [place] Vital Signs Vital Name Observation Time Observation Value Comments Source WEIGHT 2023-05-02 06:00:00 46.2 kg WEIGHT 2023-05-01 06:00:00 45.949 kg WEIGHT 2023-04-24 06:00:00 44.453 kg WEIGHT 2023-04-23 06:19:00 43.455 kg WEIGHT 2023-04-20 06:00:00 48.7 kg HEIGHT 2023-04-19 13:00:00 165.1 cm WEIGHT 2023-04-19 06:00:00 42 kg WEIGHT 2023-04-10 14:30:00 45.36 kg WEIGHT 2023-05-02 06:00:00 46.2 kg WEIGHT 2023-05-01 06:00:00 45.949 kg WEIGHT 2023-04-24 06:00:00 44.453 kg WEIGHT 2023-04-23 06:19:00 43.455 kg WEIGHT 2023-04-20 06:00:00 48.7 kg HEIGHT 2023-04-19 13:00:00 165.1 cm WEIGHT 2023-04-19 06:00:00 42 kg WEIGHT 2023-04-10 14:30:00 45.36 kg WEIGHT 2020-04-21 12:35:00 49.6 kg HEIGHT 2020-03-31 [...] blood by Willis Ramírez nderson Pulse oximetry [facility] Body temperature 2021-10-24 16:48:00 36.89 Lizabeth [...] CT CHEST W CONTRAST 2023-01-22 15:49:00 Grey Campbell Uni vers[facility] COMPLETE BLOOD COUNT W/ 2023-01-22 14:24:00 Grey Campbell [facility] DIFFERENTIAL [facility] COMPREHENSIVE METABOLIC 2023-01-22 14:24:00 Grey Campbell [facility] PANEL [facility] Results CBC 2023-01-22 14:24:00 Grey Campbell [facility] MANUAL DIFFERENTIAL 2023-01-22 14:24:00 [facility]SE L[facility] 2023-01-22 14:24:00 Grey Campbell [facility] BLO[facility] UREA NITROGEN 2023-01-22 14:24:[address] [facility] ELECTROLYTE PANEL 2023-01-22 14:24:00 Grey [facility] SERUM CREATININE 2023-01-22 14:24:00 Grey [facility] .GLOMERULAR FILTRATION 2023-01-22 14:24:00 Grey Campbell [facility] RATE [facility] CALCIUM LEVEL TOTAL 2023-01-22 14:24:00 Grey Campbell [facility] ALBUMIN LEVEL 2023-01-22 14:24:00 Grey Campbell [facility] ALKALINE PHOSPHATASE 2023-01-22 14:24:00 Grey Campbell [facility] ALANINE AMINOTRANSFERASE 2023-01-22 14:24:00 Grey Campbell [facility] ASPARTATE AMINOTRANSFERASE 2023-01-22 14:24:00 Rodrigo Campbell [facility] TOTAL PROTEIN 2023-01-22 14:24:00 Grey Campbell [facility] FRACTIONATED BILIRUBIN 2023-01-22 14:24:00 Grey Campbell [facility] POC CREATININE 2023-01-22 14:19:00 Grey Campbell [facility] CT CHEST W CONTRAST 2022-09-13 13:57:00 Stella Clark [facility] POC CREATININE 2022-09-13 13:38:00 Stella Clark [facility] COMPLETE BLOOD COUNT W/ 2022-09-13 13:10:00 Maria Fernanda [facility] DIFFERENTIAL [facility] COMPREHENSIVE METABOLIC 2022-09-13 13:10:00 Maria Fernanda [facility] PANEL [facility] Results CBC 2022-09-13 13:10:00 Maria Fernanda [place] [facility] MANUAL DIFFERENTIAL 2022-09-13 13:10:00 Maria Fernanda [place] [facility] GLUCOSE LEVEL 2022-09-13 13:10:00 Maria Fernanda [place] [facility] BLOOD UREA NITROGEN 2022-09-13 13:10:00 Maria Fernanda [place] V. [facility] ELECTROLYTE PANEL 2022-09-13 13:10:00 Maria Fernanda [place] [facility]. [facility] SERUM CREATININE 2022-09-13 13:10:00 Maria Fernanda [place] V. [facility] .GLOMERULAR FILTRATION 2022-09-13 13:10:00 Maria Fernanda [place] [facility] CALCIUM LEVEL TOTAL 2022-09-13 13:10:00 Maria Fernanda [place] [facility] ALBUMIN LEVEL 2022-09-13 13:10:00 Maria Fernanda [place] V. [facility] ALKALINE PHOSPHATASE 2022-09-13 13:10:00 Maria Fernanda [place] V. [facility] ALANINE AMINOTRANSFERASE 2022-09-13 13:10:00 Maria Fernanda [place] V. [facility] ASPARTATE AMINOTRANSFERASE 2022-09-13 13:10:00 Maria Fernanda [place] [facility] TOTAL PROTEIN 2022-09-13 13:10:00 Maria Fernanda [place] V. [facility] FRACTIONATED BILIRUBIN 2022-09-13 13:10:00 Maria Fernanda [place] [facility] COMPLETE BLOOD COUNT W/ 2022-06-07 15:54:00 Stella Clark [facility] DIFFER[facility] COMPREHENSIVE METABOLIC 2022-06-07 15:54:00 Stella Clark [facility] PAN[facility] FREE THYROXINE 2022-06-07 15:54:00 Stella Clark [facility] MAGNESIUM LEVEL 2022-06-07 15:54:00 Stella Clark [facility] TOTAL T3 2022-06-07 15:54:00 Stella Clark [facility] THYROID STIMULATING 2022-06-07 15:54:00 Stella Clark [facility] HORMONE [facility] URIC ACID 2022-06-07 15:54:00 Stella Clark [facility] Results CBC 2022-06-07 15:54:00 Stella Clark [facility] MANUAL DIFFERENTIAL 2022-06-07 15:54:00 Stella Clark [facility] GLUCOSE LEVEL 2022-06-07 15:54:00 Stella Clark [facility] BLOOD UREA NITROGEN 2022-06-07 15:54:00 Stella Clark [facility] SERUM CREATININE 2022-06-07 15:54:00 Stella Clark [facility] .GLOMERULAR FILTRATION 2022-06-07 15:54:00 Stella Clark [facility] RATE [facility] CALCIUM LEVEL TOTAL 2022-06-07 15:54:00 Stella Clark [facility] ALBUMIN LEVEL 2022-06-07 15:54:00 Stella Clark [facility] ALKALINE PHOSPHATASE 2022-06-07 15:54:00 [facility] ALANINE AMINOTRANSFERASE 2022-06-07 15:54:00 [facility] ASPARTATE AMINOTRANSFERASE 2022-06-07 15:54:00 Stella Clark [facility] TOTAL PROTEIN 2022-06-07 15:54:00 Stella Clark [facility] FRACTIONATED BILIRUBIN 2022-06-07 15:54:00 Stella Clark [facility] ELECTROLYTE PANEL 2022-06-07 15:54:00 Stella Clark [facility] PETCT SUBSEQUENT TREATMENT 2022-06-07 15:27:59 Stella Clark [facility] STRATEGY [facility] COMPLETE BLOOD COUNT W/ 2021-10-24 10:53:00 Tod Glass V[facility] DIFFERENTIAL [facility] COMPREHENSIVE METABOLIC 2021-10-24 10:53:00 Tod Glass V. [facility] PANEL [facility] MAGNESIUM LEVEL 2021-10-24 10:53:00 Tod Glass V. [facility] PHOSPHORUS LEVEL 2021-10-24 10:53:00 Tod Glass V. [facility] Results CBC 2021-10-24 10:53:00 Tod Glass V. [facility] MANUAL DIFFERENTIAL 2021-10-24 10:53:00 Tod Glass V. [facility] GLUCOSE LEVEL 2021-10-24 10:53:00 Tod Glass V. [facility] BLOOD UREA NITROGEN 2021-10-24 10:53:00 Tod Glass V. [facility] ELECTROLYTE PANEL 2021-10-24 10:53:00 Tod Glass V. [facility] SERUM CREATININE 2021-10-24 10:53:00 Tod Glass V. [facility] .GLOMERULAR FILTRATION 2021-10-24 10:53:00 Tod Glass [facility] RATE [facility] CALCIUM LEVEL TOTAL 2021-10-24 10:53:00 Tod Glass V. [facility] ALBUMIN LEVEL 2021-10-24 10:53:00 Tod Glass V. [facility] ALKALINE PHOSPHATASE 2021-10-24 10:53:00 Tod Glass V. [facility] ALANINE AMINOTRANSFERASE 2021-10-24 10:53:00 Tod Glass V. [facility] ASPARTATE AMINOTRANSFERASE 2021-10-24 10:53:00 Tod Glass [facility]. [facility] TOTAL PROTEIN 2021-10-24 10:53:00 Tod Glass V. [facility] FRACTIONATED BILIRUBIN 2021-10-24 10:53:00 Tod Glass [facility] OSCILLATORY PEP 2021-10-23 13:00:13 Tod Glass V. [facility] COMPLETE BLOOD COUNT W/ 2021-10-23 12:28:00 Tod Glass V. [facility] DIFFERENTIAL [facility] COMPREHENSIVE METABOLIC 2021-10-23 12:28:00 Tod Glass V. [facility] PANEL [facility] MAGNESIUM LEVEL 2021-10-23 12:28:00 Tod Glass V. [facility] PHOSPHORUS LEVEL 2021-10-23 12:28:00 Tod Glass V. [facility] Results CBC 2021-10-23 12:28:00 Tod Glass V. [facility] MANUAL DIFFERENTIAL 2021-10-23 12:28:00 Tod Glass V. [facility] GLUCOSE LEVEL 2021-10-23 12:28:00 Tod Glass V. [place] [facility] BLOOD UREA NITROGEN 2021-10-23 12:28:00 Tod Glass V. [facility] ELECTROLYTE PANEL 2021-10-23 12:28:00 Tod Glass V. [facility] SERUM CREATININE 2021-10-23 12:28:00 Tod Glass V. [facility] .GLOMERULAR FILTRATION 2021-10-23 12:28:00 Tod Glass [facility] CALCIUM LEVEL TOTAL 2021-10-23 12:28:00 Tod Glass V. [facility] ALBUMIN LEVEL 2021-10-23 12:28:00 Tod Glass V. [facility] ALKALINE PHOSPHATASE 2021-10-23 12:28:00 Tod Glass V. [facility] ALANINE AMINOTRANSFERASE 2021-10-23 12:28:00 Tod Glass [facility]. [facility] ASPARTATE AMINOTRANSFERASE 2021-10-23 12:28:00 Tod Glass [facility]. [facility] TOTAL PROTEIN 2021-10-23 12:28:00 Tod Glass V. [facility] FRACTIONATED BILIRUBIN 2021-10-23 12:28:00 Tod Glass [facility] OSCILLATORY PEP 2021-10-22 19:00:57 Tod Glass V. [facility] OSCILLATORY PEP 2021-10-22 13:00:14 Tod Glass V. [place] [facility] COMPLETE BLOOD COUNT W/ 2021-10-22 11:48:00 Tod Glass [facility] DIFFERENTIAL [facility] COMPREHENSIVE METABOLIC 2021-10-22 11:48:00 Tod Glass [facility] MAGNESIUM LEVEL 2021-10-22 11:48:00 Tod Glass V. [facility] PHOSPHORUS LEVEL 2021-10-22 11:48:00 Tod Glass V. [facility] IGG SUBCLASSES, SERUM 2021-10-22 11:48:00 Tod Glass [facility] IMMUNOGLOBULIN G SERUM 2021-10-22 11:48:00 Tod Glass [facility] IMMUNOGLOBULIN A SERUM 2021-10-22 11:48:00 Tod Glass [facility] Results CBC 2021-10-22 11:48:00 Tod Glass V. [facility] MANUAL DIFFERENTIAL 2021-10-22 11:48:00 Tod Glass V. [facility] GLUCOSE LEVEL 2021-10-22 11:48:00 Tod Glass V. [facility] BLOOD UREA NITROGEN 2021-10-22 11:48:00 Tod Glass V. [facility] ELECTROLYTE PANEL 2021-10-22 11:48:00 Tod Glass V. [facility] SERUM CREATININE 2021-10-22 11:48:00 Tod Glass V. [facility] .GLOMERULAR FILTRATION 2021-10-22 11:48:00 Tod Glass [facility] RATE [facility] CALCIUM LEVEL TOTAL 2021-10-22 11:48:00 Tod Glass V. [facility] ALBUMIN LEVEL 2021-10-22 11:48:00 Tod Glass V. [facility] ALKALINE PHOSPHATASE 2021-10-22 11:48:00 Tod Glass V. [facility] ALANINE AMINOTRANSFERASE 2021-10-22 11:48:00 Tod Glass V. [facility] ASPARTATE AMINOTRANSFERASE 2021-10-22 11:48:00 Tod Glass [facility] TOTAL PROTEIN 2021-10-22 11:48:00 Tod Glass V. [facility] FRACTIONATED BILIRUBIN 2021-10-22 11:48:00 Tod Glass [facility]. [facility] OSCILL[facility]ORY PEP 2021-10-22 01:00:11 Tod Glass V. [facility] XR CHEST 1 VW 2021-10-21 20:44:00 Tod Glass V. [facility] BLOODCULTURE 2021-10-21 14:09:00 Tod Glass V. [facility] FUNGAL BLOODCULTURE 2021-10-21 14:09:00 Tod Glass V. [facility] COMPLETE BLOOD COUNT W/ 2021-10-21 11:02:00 Tod Glass V. [facility] DIFFERENTIAL [facility] COMPREHENSIVE METABOLIC 2021-10-21 11:02:00 Tod Glass V. [facility] PANEL [facility] MAGNESIUM LEVEL 2021-10-21 11:02:00 Tod Glass V. [facility] PHOSPHORUS LEVEL 2021-10-21 11:02:00 Tod Glass V. [facility] Results CBC 2021-10-21 11:02:00 Tod Glass V. [facility] MANUAL DIFFERENTIAL 2021-10-21 11:02:00 Tod Glass V. [facility] GLUCOSE LEVEL 2021-10-21 11:02:00 Tod Glass V. [facility] BLOOD UREA NITROGEN 2021-10-21 11:02:00 Tod Glass V. [facility] ELECTROLYTE PANEL 2021-10-21 11:02:00 Tod Glass V. [facility] SERUM CREATININE 2021-10-21 11:02:00 Tod Glass V. [facility] .GLOMERULAR FILTRATION 2021-10-21 11:02:[address] [facility] CALCIUM LEVEL TOTAL 2021-10-21 11:02:00 Tod Glass V. [facility] ALBUMIN LEVEL 2021-10-21 11:02:00 Tod Glass V. [facility] ALKALINE PHOSPHATASE 2021-10-21 11:02:00 Tod Glass V. [facility] ALANINE AMINOTRANSFERASE 2021-10-21 11:02:00 Tod Glass V. [facility] ASPARTATE AMINOTRANSFERASE 2021-10-21 11:02:00 [facility] TOTAL PROTEIN 2021-10-21 11:02:00 Tod Glass V. [facility] FRACTIONATED BILIRUBIN 2021-10-21 11:02:00 Tod Glass [facility]. [facility] EKG, 12-LEAD (PORTABLE) 2021-10-21 00:00:00 Tod Glass V. [facility] XR ABDOMEN 1 VW PORTABLE 2021-10-20 19:19:00 Tod Glass V. [facility] OSCILLATORY PEP 2021-10-20 19:00:49 Tod Glass V. [facility] OSCILLATORY PEP 2021-10-20 13:00:11 Tod Glass V. [facility] COMPLETE BLOOD COUNT W/ 2021-10-20 11:10:00 Tod Glass V. [facility] DIFFERENTIAL [facility] COMPREHENSIVE METABOLIC 2021-10-20 11:10:00 Tod Glass V. [facility] PANEL [facility] MAGNESIUM LEVEL 2021-10-20 11:10:00 Tod Glass V. [facility] PHOSPHORUS LEVEL 2021-10-20 11:10:00 Tod Glass V. [facility] Results CBC 2021-10-20 11:10:00 Tod Glass V. [facility] MANUAL DIFFERENTIAL 2021-10-20 11:10:00 Tod Glass V. [facility] GLUCOSE LEVEL 2021-10-20 11:10:00 Tod Glass V. [facility] BLOOD UREA NITROGEN 2021-10-20 11:10:00 Tod Glass V. [facility] ELECTROLYTE PANEL 2021-10-20 11:10:00 Tod Glass V. [facility] SERUM CREATININE 2021-10-20 11:10:00 Tod Glass V. [facility] .GLOMERULAR FILTRATION 2021-10-20 11:10:[address] [facility] CALCIUM LEVEL TOTAL 2021-10-20 11:10:00 Tod Glass V. [facility] ALBUMIN LEVEL 2021-10-20 11:10:00 Tod Galss V. [facility] ALKALINE PHOSPHATASE 2021-10-20 11:10:00 Tod Glass V. [facility] ALANINE AMINOTRANSFERASE 2021-10-20 11:10:00 Tod Glass [facility] ASPARTATE AMINOTRANSFERASE 2021-10-20 11:10:00 Tod Glass [facility] TOTAL PROTEIN 2021-10-20 11:10:00 Tod Glass V. [facility] FRACTIONATED BILIRUBIN 2021-10-20 11:10:00 Tod Glass [facility] OSCILLATORY PEP 2021-10-20 01:00:09 Tod Glass V. [facility] OSCILLATORY PEP 2021-10-19 19:00:53 Tod Glass V. [facility] PATHOLOGY BIOPSY 2021-10-19 18:35:00 Edwige Rod [facility] INTERPRETATION [facility] UPPER GASTROINTESTINAL 2021-10-19 18:14:00 [facility], MD [facility] STOMACH, AND DUODENUM WITH Cente r BIOPSY OSCILLATORY PEP 2021-10-19 14:01:42 Tod Glass V. [facility] COMPLETE BLOOD COUNT W/ 2021-10-19 12:18:00 Tod Glass V. [facility] DIFFERENTIAL [facility] COMPREHENSIVE METABOLIC 2021-10-19 12:18:00 Tod Glass V. [facility] PANEL [facility] MAGNESIUM LEVEL 2021-10-19 12:18:00 Tod Glass V. [facility] PHOSPHORUS LEVEL 2021-10-19 12:18:00 Tod Glass V. [facility] Results CBC 2021-10-19 12:18:00 Tod Glass V. [facility] MANUAL DIFFERENTIAL 2021-10-19 12:18:00 Tod Glass V. [facility] GLUCOSE LEVEL 2021-10-19 12:18:00 Tod Glass V. [facility] BLOOD UREA NITROGEN 2021-10-19 12:18:00 Tod Glass V. [facility] ELECTROLYTE PANEL 2021-10-19 12:18:00 Tod Glass V. [facility] SERUM CREATININE 2021-10-19 12:18:00 Tod Glass V. [facility] .GLOMERULAR FILTRATION 2021-10-19 12:18:00 Tod Glass V. [facility] CALCIUM LEVEL TOTAL 2021-10-19 12:18:00 Tod Glass V. [facility] ALBUMIN LEVEL 2021-10-19 12:18:00 Tod Glass V. [facility] ALKALINE PHOSPHATASE 2021-10-19 12:18:00 Tod Glass V. [facility] ALANINE AMINOTRANSFERASE 2021-10-19 12:18:00 Tod Glass [facility]. [facility] ASPARTATE AMINOTRANSFERASE 2021-10-19 12:18:00 Tod [facility] TOTAL PROTEIN 2021-10-19 12:18:00 Tod Glass V. [facility] FRACTIONATED BILIRUBIN 2021-10-19 12:18:00 Tod Glass [facility] XR CHEST 1 VW 2021-10-18 21:15:00 Tod Glass V. [facility] POC GLUCOSE SCREEN 2021-10-18 11:47:00 Tod Glass V. [facility] COMPLETE BLOOD COUNT W/ 2021-10-18 09:25:00 Tod Glass V. [facility] DIFFERENTIAL [facility] COMPREHENSIVE METABOLIC 2021-10-18 09:25:00 Tod Glass V. [facility] PANEL [facility] MAGNESIUM LEVEL 2021-10-18 09:25:00 Tod Glass V. [facility] PHOSPHORUS LEVEL 2021-10-18 09:25:00 Tod Glass V. [facility] Results CBC 2021-10-18 09:25:00 Tod Glass V. [facility] MANUAL DIFFERENTIAL 2021-10-18 09:25:00 Tod Glass V. [facility] GLUCOSE LEVEL 2021-10-18 09:25:00 Tod Glass V[facility] Resources BLOOD UREA NITROGEN 2021-10-18 09:25:00 Tod Glass V. [facility] ELECTROLYTE PANEL 2021-10-18 09:25:00 Tod Glass V. [facility] SERUM CREATININE 2021-10-18 09:25:00 Tod Glass V. [facility] .GLOMERULAR FILTRATION 2021-10-18 09:25:00 [facility] CALCIUM LEVEL TOTAL 2021-10-18 09:25:00 Tod Glass V. [facility] ALBUMIN LEVEL 2021-10-18 09:25:00 Tod Glass V. [facility] ALKALINE PHOSPHATASE 2021-10-18 09:25:00 Tod Glass V. [facility] ALANINE AMINOTRANSFERASE 2021-10-18 09:25:00 Tod Glass V. [facility] ASPARTATE AMINOTRANSFERASE 2021-10-18 09:25:00 Tod [facility]. [facility] TOTAL PROTEIN 2021-10-18 09:25:00 Tod Glass V. [facility] FRACTIONATED BILIRUBIN 2021-10-18 09:25:00 Tod [facility]. [facility] OSCILLATORY PEP 2021-10-18 07:00:10 Tod Glass V. [facility] OSCILLATORY PEP 2021-10-18 01:00:07 Tod Glass V. [facility] OSCILLATORY PEP 2021-10-17 19:01:02 Tod Glass V. [facility] VANCOMYCIN LEVEL TROUGH 2021-10-17 16:50:00 Tod Glass V. [facility] OSCILLATORY PEP 2021-10-17 14:31:30 Tod Glass V. [facility] FUNGITELL, SERUM 2021-10-17 08:59:00 Tod Glass V. [facility] COMPLETE BLOOD COUNT W/ 2021-10-17 08:59:00 Tod Glass V. [facility] DIFFERENTIAL [facility] COMPREHENSIVE METABOLIC 2021-10-17 08:59:00 Tod Glass V. [facility] PANEL [facility] MAGNESIUM LEVEL 2021-10-17 08:59:00 Tod Glass V. [facility] PHOSPHORUS LEVEL 2021-10-17 08:59:00 Tod Glass V. [facility] Results CBC 2021-10-17 08:59:00 Tod Glass V. [facility] MANUAL DIFFERENTIAL 2021-10-17 08:59:00 Tod Glass V. [facility] GLUCOSE LEVEL 2021-10-17 08:59:00 Tod Glass V. [facility] BLOOD UREA NITROGEN 2021-10-17 08:59:00 Tod Glass V. [facility] ELECTROLYTE PANEL 2021-10-17 08:59:00 Tod Glass V. [facility] SERUM CREATININE 2021-10-17 08:59:00 Tod Glass V. [facility] .GLOMERULAR FILTRATION 2021-10-17 08:59:00 Tod Glass V. [facility] RATE [facility] CALCIUM LEVEL TOTAL 2021-10-17 08:59:00 Tod Glass V. [facility] ALBUMIN LEVEL 2021-10-17 08:59:00 Tod Glass V. [facility] ALKALINE PHOSPHATASE 2021-10-17 08:59:00 Tod Glass V. [facility] ALANINE AMINOTRANSFERASE 2021-10-17 08:59:00 Tod Glass V. [facility] ASPARTATE AMINOTRANSFERASE 2021-10-17 08:59:00 Tod [facility]. [facility] TOTAL PROTEIN 2021-10-17 08:59:00 Tod Glass V. [facility] FRACTIONATED BILIRUBIN 2021-10-17 08:59:00 Tod Glass V. Unive [facility] PROCALCITONIN 2021-10-17 08:59:00 Tod Glass V. [facility] FL MODIFIED BARIUM SWALLOW 2021-10-16 19:57:25 [facility]PIR[facility] VIRAL PANEL, 2021-10-16 13:05:00 Tod Glass [facility] NASOPHARYNGEAL SWAB [facility] RESPIRATORY PCR PANEL, CONSULTING SOLUTION DIRECTOR 2021-10-16 13:05:00 Tod Glass V. Un iversity [facility] SWAB [facility] RESPIRATORY PCR PANEL PATH 2021-10-16 13:05:00 [facility] MRSA SCREENING CULTURE 2021-10-15 21:25:00 Felix Bazzi [facility] TROPONIN T 2021-10-15 18:15:00 Verónica Thakkar [facility] CT CHEST PULMONARY 2021-10-15 17:58:06 Verónica Thakkar [facility] EMBOLISM CONTRAST [facility] LEGIONELLA URINE ANTIGEN 2021-10-15 17:17:00 Verónica Thakkar [facility] STREPTOCOCCUS PNEUMONIAE 2021-10-15 17:17:00 Verónica Thakkar [facility] URINE ANTIGEN [facility] STREPTOCOCCAL URINE 2021-10-15 17:17:00 Verónica Thakkar [facility] ANTIGEN PATH REVIEW [facility] LEGIONELLA URINE ANTIGEN 2021-10-15 17:17:00 Verónica Thakkar [facility] FUNGITELL, SERUM 2021-10-15 16:43:00 Bijan Verónica [facility] COVID-19 (SARS-COV-2) 2021-10-15 15:08:00 Bijan Verónica [facility] ASYMPTOMATIC-LT [facility] BLOODCULTURE 2021-10-15 15:08:00 Bijan [facility] LOWER RESPIRATORY CULTURE 2021-10-15 15:08:00 Verónica [facility] W/ GRAM STAIN [facility] COMPREHENSIVE METABOLIC 2021-10-15 15:08:00 Bijan Verónica [facility] PANEL [facility] MAGNESIUM LEVEL 2021-10-15 15:08:00 Bijan [facility] PHOSPHORUS LEVEL 2021-10-15 15:08:00 Bijan [facility] LACTATE DEHYDROGENASE 2021-10-15 15:08:00 Bijan [facility] PROCALCITONIN 2021-10-15 15:08:00 Bijan [facility] TROPONIN T 2021-10-15 15:08:00 Bijan [facility] CREATINE KINASE 2021-10-15 15:08:00 Bijan [facility] CKMB 2021-10-15 15:08:00 Bijan [facility] NT PRO BNP 2021-10-15 15:08:00 Bijan [facility] COMPLETE BLOOD COUNT W/ 2021-10-15 15:08:00 Bijan [facility] DIFFERENTIAL [facility] PROTHROMBIN TIME 2021-10-15 15:08:00 Bijan [facility] APTT 2021-10-15 15:08:00 Bijan [facility] GLUCOSE LEVEL 2021-10-15 15:08:00 Bijan [facility] BLOOD UREA NITROGEN 2021-10-15 15:08:00 [facility] 2021-10-15 15:08:00 Bijan [facility] SERUM CREATININE 2021-10-15 15:08:00 Bijan [facility] .GLOMERULAR FILTRATION 2021-10-15 15:08:00 Verónica Thakkar [facility] RATE [facility] CALCIUM LEVEL TOTAL 2021-10-15 15:08:00 Bijan [facility] ALBUMIN LEVEL 2021-10-15 15:08:00 Bijan [facility] ALKALINE PHOSPHATASE 2021-10-15 15:08:00 Verónica Thakkar [facility] ALANINE AMINOTRANSFERASE 2021-10-15 15:08:00 Verónica Thakkar [facility] ASPARTATE AMINOTRANSFERASE 2021-10-15 15:08:00 Verónica [facility]ak[facility] TOTAL PROTEIN 2021-10-15 15:08:00 Bijan [facility] FRACTIONATED BILIRUBIN 2021-10-15 15:08:00 Bijan Verónica [facility] Results CBC 2021-10-15 15:08:00 Bijan [facility] MANUAL DIFFERENTIAL 2021-10-15 15:08:00 Bijan Verónica [facility] XR CHEST 1 VW 2021-10-15 14:45:00 Bijan [facility] EKG, 12-LEAD (PORTABLE) 2021-10-15 00:00:00 Bijan Verónica [facility] COMPLETE BLOOD COUNT W/ 2021-09-05 11:48:00 Inez Lagunas [facility] DIFFERENTIAL [facility] COMPREHENSIVE METABOLIC 2021-09-05 11:48:00 Bebo [facility] PANEL [facility] MAGNESIUM LEVEL 2021-09-05 11:48:00 Bebo [facility] PHOSPHORUS LEVEL 2021-09-05 11:48:00 Bebo [facility] Results CBC 2021-09-05 11:48:00 Bebo [facility] MANUAL DIFFERENTIAL 2021-09-05 11:48:00 [facility] GLUCOSE LEVEL 2021-09-05 11:48:00 Bebo [facility] BLOOD UREA NITROGEN 2021-09-05 11:48:00 Bebo [facility] ELECTROLYTE PANEL 2021-09-05 11:48:00 Bebo [facility] SERUM CREATININE 2021-09-05 11:48:00 Bebo [facility] .GLOMERULAR FILTRATION 2021-09-05 11:48:00 Inez [facility]as [facility] RATE [facility] CALCIUM LEVEL TOTAL 2021-09-05 11:48:00 [facility] ALBUMIN LEVEL 2021-09-05 11:48:00 Bebo [facility] ALKALINE PHOSPHATASE 2021-09-05 11:48:00 Bebo [facility] ALANINE AMINOTRANSFERASE 2021-09-05 11:48:00 Bebo Mini [facility] ASPARTATE AMINOTRANSFERASE 2021-09-05 11:48:00 Inez [facility]as [facility] TOTAL PROTEIN 2021-09-05 11:48:00 Bebo [facility] o f [facility] FRACTIONATED BILIRUBIN 2021-09-05 11:48:00 Inez [facility]unas [facility] STREPTOCOCCUS PNEUMONIAE 2021-09-04 19:38:00 Inez Lagunas [facility] [place] URINE ANTIGEN [facility] LEGIONELLA URINE ANTIGEN 2021-09-04 19:38:00 Bebo Mini [facility] LEGIONELLA URINE ANTIGEN 2021-09-04 19:38:00 Inez [facility]unas [facility] PATH REVIEW [facility] STREPTOCOCCAL URINE 2021-09-04 19:38:00 Inez Lagunas [facility] ANTIGEN PATH REVIEW [facility] [place] LOWER RESPIRATORY CULTURE 2021-09-04 19:36:00 Inez Lagunas [facility] W/ GRAM STAIN [facility] BASIC METABOLIC PANEL, 2021-09-04 09:51:00 Verónica Thakkar [facility] CALCIUM TOTAL [facility] MAGNESIUM LEVEL 2021-09-04 09:51:00 Bijan [facility] PHOSPHORUS LEVEL 2021-09-04 09:51:00 Bijan [facility] TROPONIN T 2021-09-04 09:51:00 Aisha [facility] GLUCOSE LEVEL 2021-09-04 09:51:00 Bijan [facility] BLOOD UREA NITROGEN 2021-09-04 09:51:00 Bijan [facility] ELECTROLYTE PANEL 2021-09-04 09:51:00 Bijan [facility] SERUM CREATININE 2021-09-04 09:51:00 Bijan [facility] .GLOMERULAR FILTRATION 2021-09-04 09:51:00 Verónica [facility]akkar [facility] RATE [facility] CALCIUM LEVEL TOTAL 2021-09-04 09:51:00 Bijan [facility] TROPONIN T 2021-09-04 03:49:00 Bijan [facility] CREATINE KINASE 2021-09-04 03:49:00 Bijan [facility] CKMB 2021-09-04 03:49:00 Bijan [facility] CT CHEST PULMONARY 2021-09-04 03:46:45 [facility] EMBOL[facility] W CONTRAST [facility] [place] [facility] XR CHEST 1 VW 2021-09-03 23:40:27 Jyoti Morales [place] [facility] RESPIRATORY VIRAL 2021-09-03 23:14:00 Jyoti Morales [facility] MULTIPLEX PCR PANEL, [facility] NASOPHARYNGEAL SWAB Center COMPLETE BLOOD COUNT W/ 2021-09-03 21:54:00 Jyoti Morales [facility] DIFFERENTIAL [facility] COMPREHENSIVE METABOLIC 2021-09-03 21:54:00 Jyoti Morales [facility] PANEL [facility] MAGNESIUM LEVEL 2021-09-03 21:54:00 Jyoti Morales [facility] PHOSPHORUS LEVEL 2021-09-03 21:54:00 Jyoti Morales [facility] NT PRO BNP 2021-09-03 21:54:00 Jyoti Morales [facility] TROPONIN T 2021-09-03 21:54:00 Jyoti Morales [facility] Results CBC 2021-09-03 21:54:00 Jyoti Morales [facility] MANUAL DIFFERENTIAL 2021-09-03 21:54:00 Jyoti Morlaes [facility] GLUCOSE LEVEL 2021-09-03 21:54:00 Jyoti Morales [facility] BLOOD UREA NITROGEN 2021-09-03 21:54:00 Jyoit Morales [facility] ELECTROLYTE PANEL 2021-09-03 21:54:00 Jyoti Morales [facility] SERUM CREATININE 2021-09-03 21:54:00 Jyoti Morales [facility] .GLOMERULAR FILTRATION 2021-09-03 21:54:00 Jyoti Morales [facility] RATE [facility] CALCIUM LEVEL TOTAL 2021-09-03 21:54:00 Jyoti Morales [facility] ALBUMIN LEVEL 2021-09-03 21:54:00 Jyoti Morales [place] o f [facility] ALKALINE PHOSPHATASE 2021-09-03 21:54:00 Jyoti Morales [facility] ity [facility] ALANINE AMINOTRANSFERASE 2021-09-03 21:54:00 Jyoti Morales [facility] ASPARTATE AMINOTRANSFERASE 2021-09-03 21:54:00 Jyoti Morales U [facility] TOTAL PROTEIN 2021-09-03 21:54:00 Jyoti Morales [place] o f [facility] FRACTIONATED BILIRUBIN 2021-09-03 21:54:00 Jyoti Morales [facility] EKG, 12-LEAD (PORTABLE) 2021-09-03 00:00:00 Jyoti Morales [facility] CT CHEST W CONTRAST 2021-08-13 14:15:24 Virgen Del Rosario [facility] POC CREATININE 2021-08-13 13:30:00 Virgen Del Rosario [facility] REPLACEMENT OF GASTROSTOMY 2021-05-22 04:50:00 Claude Tobin [facility] TUBE, PERCUTANEOUS, [facility] INCLUDES REMOVAL, WHEN Center PERFORMED, WITHOUT IMAGING OR ENDOSCOPIC GUIDANCE; NOT REQUIRING REVISION OF GASTROSTOMY TRACT CT CHEST ABDOMEN PELVIS W 2021-04-20 19:35:00 Jackie Mendez [facility] CONTRAST [facility] POC CREATININE 2021-04-20 18:02:00 Maria Fernanda [place] [facility] MRI BRAIN W WO CONTRAST 2021-04-20 16:10:00 Jackie Mendez [facility] Plan of Care Planned Activity Planned Date Details Comments Source Future Scheduled 2023-04-30 COVID-19 Vaccination [facility] [place] Test 15:43:04 (#1) [code = COVID-19 [facility] (#1)] Center Future Scheduled 2023-04-07 COVID-19 Vaccination Uni versity [...] Date/Time Type Type Clinicians Facility Department ID 2023-05-02 Inpatient NICHOLE MCFARLAND [facility] [id number] [facility] 08:14:33 VINCE 2023-04-25 Inpatient NICHOLE FELICIANO [facility] [id number] [facility] 11:13:33 BRAD 2023-04-24 Inpatient NICHOLE JACKSON [facility] [id number] [facility] 22:56:13 VIRGEN 2023-04-24 Inpatient NICHOLE JACKSON [facility]H [id number] SLEH 05:58:12 VIRGEN 2023-04-22 Inpatient NICHOLE FELICIANO [facility] [id number] SLEH 16:43:14 BRAD 2023-04-20 Inpatient NICHOLE SELBY [facility] [id number] SLEH 08:21:09 KATE 2023-04-16 Inpatient NICHOLE MAHMOOD, [facility]H SLEH [id number] SLEH 08:29:41 SAVANNA 2023-04-11 Inpatient NICHOLE MAHMOOD [facility] [id number] [facility]H 21:22:33 [facility] 2023-04-08 Inpatient NICHOLE DICKINSON [facility] SLEH [id number] SLEH 19:47:51 ZACHARY 2022-10-08 Outpatient SYSTEM, ANUJ LESLIE [id number] 12:38:41 PROVIDER Bakari zimmerman 2021-04-30 Emergency [facility] [id number] Univers 04:07:38 [facility] 2020-04-12 Outpatient ANUJ LESLIE [id number] 16:09:07 Fuentes zimmemran 2020-02-14 Outpatient SYSTEM, ANUJ LESLIE [id number] 13:23:33 PROVIDER Bakari zimmerman 2023-04-08 2023-05-04 Inpatient ER [facility]UR[facility] [id number] SLEH 15:43:00 13:11:00 2023-04-28 2023-04-28 Outpatient NICHOLE FORDE [facility] SLEH [id number] SLEH 07:53:45 07:53:45 AZEB 2023-04-24 2023-04-24 Outpatient NICHOLE JACKSON [facility] SLEH [id number] SLEH 00:00:00 00:00:00 VIRGEN 2023-04-22 2023-04-22 Raul Clark, 1.2.840.1 [id number] Univers 00:00:00 00:00:00 Only Stella 41480.1.1 it y of 3.412.2.7 [place] .3.360819 MD Haines8 [facility] 2023-04-20 2023-04-20 Outpatient EL GAURANG SLEH SLEH [id number] SLEH 13:49:18 13:49:18 , ABIODUN 2023-04-20 2023-04-20 Outpatient EL OXANA, SLEH SLEH [id number] SLEH 12:46:11 12:46:11 RAISA 2023-04-19 2023-04-19 Outpatient EL SOLA, SLEH SLEH [id number] SLEH 09:15:34 09:15:34 KATE 2023-04-19 2023-04-19 Outpatient EL ORACIO HDZ SLEH SLE [id number] SLEH 00:00:00 00:00:00 2023-04-15 2023-04-15 Outpatient EL JOE, SLEH SLEH [id number] SLEH 16:01:03 16:01:03 SAM 2023-04-10 2023-04-10 Outpatient EL ELA, SLEH SLEH [id number] SLEH 15:28:27 15:28:27 CORTNEY 2023-03-31 2023-03-31 Telemcolin Clark, 1.2.840.1 [id number] [facility] 14:00:00 14:26:47 ne Stella 62129.1.1 it y of 3.412.2.7 [place] .3.562650 MD Haines8 [facility] 2023-03-31 2023-03-31 Telemedici NICHOLE Clark, 1.2.840.1 [id number] [facility] 14:00:00 14:26:47 ne Stella 00776.1.1 it y of 3.412.2.7 [place] .3Yancy698207 MD Haines8 [facility] 2023-03-28 2023-03-28 Raul [place], 1.2.840.1 [id number] Univers 00:00:00 00:00:00 Only Maria Fernanda Blily. 64810.1.1 ity of 3.412.2.7 [place] .3.789174 MD Haines8 [facility] 2023-03-28 2023-03-28 Orders Luis Angel, 1.2.840.1 [id number] Univers 00:00:00 00:00:00 Only Maria Fernanda Cervantes. 29145.1.1 ity of 3.412.2.7 [place] .3.831714 MD Haines8 [facility] 2023-03-26 2023-03-26 Telephone Curtis, 1.2.840.1 [id number] Univers 00:00:00 00:00:00 Lisa Ann 52834.1.1 ity of 3.412.2.7 [place] .3.699964 MD Haines8 [facility] 2023-03-26 2023-03-26 Telephone Curtis, 1.2.840.1 [id number] Univers 00:00:00 00:00:00 Lisa Ann 89558.1.1 ity of [place].412.2.[place] .3.095618 MD Haines8 [facility] 2023-03-17 2023-03-17 Telemcolin Clark, 1.2.840.1 [id number] Univers 10:00:00 15:48:01 ne Stella 14321.1.1 it y of 3.412.2.7 [place] .3.809805 MD Haines8 [facility] 2023-03-17 2023-03-17 Telemcolin Clark, 1.2.840.1 [id number] Univers 10:00:00 15:48:01 ne Stella 35709.1.1 it y of 3.412.2.7 [place] .3.071113 MD Haines8 [facility] 2023-03-16 2023-03-16 Raul Clark, 1.2.840.1 [id number] Univers 00:00:00 00:00:00 Only Stella 97632.1.1 it y of 3.412.2.7 [place] .3.398169 MD Haines8 [facility] 2023-03-16 2023-03-16 Rual Clark, 1.2.840.1 [id number] Univers 00:00:00 00:00:00 Only Stella 06684.1.1 it y of 3.412.2.7 [place] .3.131704 MD Haines8 [facility] 2023-03-10 2023-03-10 Raul Clark, 1.2.840.1 [id number] Univers 00:00:00 00:00:00 Only Stella 37657.1.1 it y of 3.412.2.7 [place] .3.447768 MD Haines8 [facility] 2023-03-10 2023-03-10 Raul Clark, 1.2.840.1 [id number] Univers 00:00:00 00:00:00 Only Stella 11174.1.1 it y of [place].412.[place] .3.768019 MD Beasley [facility] 2023-03-06 2023-03-06 Nurse Peña, 1.2.840.1 [id number] Univers 00:00:00 00:00:00 Triage Aletha Trevino 67910.1.1 it y of [place].412.[place] .3.741253 MD Haines8 [facility] 2023-03-06 2023-03-06 Raul Clark 1.2.840.1 [id number] Univers 00:00:00 00:00:00 Only Stella 68641.1.1 it y of 3.412.2.7 [place] .3Yancy557784 MD Beasley [facility] 2023-03-06 2023-03-06 Raul Clark 1.2.840.1 [id number] Univers 00:00:00 00:00:00 Only Stella 68980.1.1 it y of 3.412.2.7 [place] .3.167293 MD Beasley [facility] 2023-03-06 2023-03-06 Nurse Casey, 1.2.840.1 [id number] [facility] 00:00:00 00:00:00 Triage Aletha Trevino 35394.1.1 it y of 3.412.2.[place] .3.971064 MD Haines8 [facility] 2023-01-22 2023-01-22 [facility], 1.2.840.1 [id number] Univers 09:13:38 23:59:00 Encounter Grey Trevino 93436.1.1 ity of [place].412.2.[place] .3.934912 MD Beasley [facility] 2023-01-22 2023-01-22 [facility], 1.2.840.1 [id number] Univers 09:13:38 23:59:00 Encounter Grey Trevino 78060.1.1 ity of [place].412.2.[place] .3.494683 MD Beasley [facility] 2023-01-22 2023-01-22 Follow-Up Luis Angel, 1.2.840.1 [id number] Univers 16:00:00 16:00:00 Maria Fernanda V. 96876.1.1 ity of 3.412.2.7 [place] .3.388752 MD Beasley [facility] 2023-01-22 2023-01-22 Follow-Up NICHOLE Washington, 1.2.840.1 [id number] Univers 16:00:00 16:00:00 Maria Fernanda V. 99660.1.1 ity of 3.412.2.7 [place] .3.702116 MD Beasley [facility] 2023-01-22 2023-01-22 [facility], 1.2.840.1 [id number] Univers 08:25:45 09:12:00 Encounter Grey Trevino 67712.1.1 ity of [place].412.2.7 [place] .3.707079 MD Beasley [facility] 2023-01-22 2023-01-22 Hospital NICHOLE Campbell, 1.2.840.1 [id number] Univers 08:25:45 09:12:00 Encounter Grey Trevino 51676.1.1 ity of 3.412.2.7 [place] .3.257579 MD Beasley [facility] 2023-01-22 2023-01-22 Travel 1.2.840.1 1.2.883.584 [id number] Univers 00:00:00 00:00:00 01445.1.1 350.1.13.41 ity of 3.412.2.[place] .3.[place] 08Moose.Shaun Beasley [facility] 2023-01-22 2023-01-22 Travel 1.2.840.1 1.2.783.932 [id number] Univers 00:00:00 00:00:00 69877.1.1 350.1.13.41 ity of 3.412.2.[place] 08Nitza Beasley [facility] 2023-01-08 2023-01-08 Telephone Edmund, 1.2.840.1 [id number] Univers 00:00:00 00:00:00 Daisy Zimmerman 03661.1.1 it y of 3.412.2.7 [place] .3.907492 MD Beasley [facility] 2023-01-08 2023-01-08 Telephone Edmund, 1.2.840.1 [id number] Univers 00:00:00 00:00:00 Daisy Zimmerman 51537.1.1 it y of 3.412.2.7 [place] .3.542218 MD Beasley [facility] 2022-12-25 2022-12-25 Telephone Gonzalez, 1.2.840.1 [id number] Univers 00:00:00 00:00:00 Enriqueta Ramírez 82963.1.1 it y of 3.412.2.7 [place] .3.361979 MD Haines8 [facility] 2022-12-25 2022-12-25 Telephone Lisa, 1.2.840.1 [id number] Univers 00:00:00 00:00:00 Enriqueta Ramírez 27571.1.1 it y of 3.412.2.7 [place] .3.041955 MD Haines8 [facility] 2022-12-24 2022-12-24 Telephone Curtis, 1.2.840.1 [id number] Univers 00:00:00 00:00:00 Lisa L 17595.1.1 ity of 3.412.2.7 [place] .3.349419 MD Haines8 [facility] 2022-12-24 2022-12-24 Telephone Curtis, 1.2.840.1 [id number] Univers 00:00:00 00:00:00 Lisa L 46923.1.1 ity of 3.412.2.7 [place] .3.555759 MD Haines8 [facility] 2022-12-20 2022-12-20 Telephone Zulema Cedillo 1.2.840.1 [id number] Univers 00:00:00 00:00:00 A [id number] ity of 3.412.2.7 [place] .[id number] MD Haines8 [facility] 2022-12-20 2022-12-20 Telephone Zulema Cedillo 1.2.840.1 [id number] Univers 00:00:00 00:00:00 A 76066.1.1 ity of 3.412.2.7 [place] .3.648167 MD Haines8 [facility] 2022-12-14 2022-12-14 Documentat Luis Angel, 1.2.840.1 [id number] 1 [id number] Univers 00:00:00 00:00:00 lino Fu 48785.1.1 ity of 3.412.2.7 [place] .3.515668 MD Beasley [facility] 2022-12-14 2022-12-14 Documentat Luis Angel, 1.2.840.1 [id number] 1 [id number] Univers 00:00:00 00:00:00 ion Maria Fernanda Fu 08755.1.1 ity of 3.412.2.7 [place] .3.215238 MD Haines8 [facility] 2022-12-13 2022-12-13 Raul Campbell, 1.2.840.1 [id number] 1107 [id number] Univers 00:00:00 00:00:00 Only Grey C 89292.1.1 i ty of 3.412.2.7 [place] .3.970749 MD Haines8 [facility] 2022-12-13 2022-12-13 Raul Campbell 1.2.840.1 [id number] 1107 [id number] Univers 00:00:00 00:00:00 Only Grey C 17345.1.1 i ty of 3.412.2.7 [place] .3.537140 MD Beasley [facility] 2022-11-19 2022-11-19 [facility] Mt, 1.2.840.1 [id number] Univers 00:00:00 00:00:00 Only Alex 87955.1.1 ity of 3.412.2.7 [place] .3.136013 MD Haines8 [facility] 2022-11-19 2022-11-19 [facility] Amor, 1.2.840.1 [id number] Univers 00:00:00 00:00:00 Only Alex 62778.1.1 ity of 3.412.2.7 [place] .3.347768 MD Haines8 [facility] 2022-09-13 2022-09-13 [facility], 1.2.840.1 [id number] Univers 07:30:00 23:59:00 Encounter Maria Fernanda Fu 14675.1.1 i ty of 3.412.2.7 [place] .3.078211 MD Haines8 [facility] 2022-09-132022-09-13 Hospital [place] [place], 1.2.840.1 [id number] [id number] Univers 07:30:00 23:59:00 Encounter Maria Fernanda Fu 88896.1.1 i ty of 3.412.2.7 [place] .3Yancy074942 MD Beasley [facility] 2022-09-13 2022-09-13 Follow[facility], 1.2.840.1 [id number] Univers 11:30:00 13:09:21 Maria Fernanda V. 22342.1.1 ity of 3.412.2.7 [place] .3Yancy287788 MD Beasley [facility] 2022-09-13 2022-09-13 Follow-Up NICHOLE [place], 1.2.840.1 [id number] 11 [id number] Univers 11:30:00 13:09:21 Maria Fernanda VYancy 86587.1.1 ity of 3.412.2.7 [place] .3Yancy257683 MD Beasley [facility] 2022-09-13 2022-09-13 Ancillary Amber, 1.2.840.1 [id number] 1103 [id number] Univers 08:35:00 10:00:00 Procedure Stella 36971.1.1 ity of 3.412.2.7 [place] .3.548548 MD Beasley [facility] 2022-09-13 2022-09-13 Ancillary NICHOLE Clark, 1.2.840.1 [id number] [id number] Univers 08:35:00 10:00:00 Procedure Stella 38300.1.1 ity of 3.412.2.7 [place] .3.410415 MD Beasley [facility] 2022-09-13 2022-09-13 Orders Amber, 1.2.840.1 [id number] Univers 00:00:00 00:00:00 Only Stella 26021.1.1 it y of 3.412.2.7 [place] .3.114576 MD Beasley [facility] 2022-09-13 2022-09-13 Travel 1.2.840.1 1.2.772.641 2786 [id number] Univers 00:00:00 00:00:00 35365.1.1 350.1.13.41 ity of 3.412.2.7 2.[place]7.3.698 [place] .3.917[place] 084.8 MD Beasley [facility] 2022-09-13 2022-09-13 Raul Clark, 1.2.840.1 [id number] 5163 Univers 00:00:00 00:00:00 Only Stella 12134.1.1 it y of 3.412.2.7 [place] .3.950909 MD Haines8 [facility] 2022-09-13 2022-09-13 Travel 1.2.840.1 1.2.005.302 9208 [id number] Univers 00:00:00 00:00:00 30092.1.1 350.1.13.41 ity of 3.412.2.7 2.[place].7.3.698 [place] .3.275863 084.8 MD Beasley [facility] 2022-09-05 2022-09-05 Raul Clark, 1.2.840.1 [id number] Univers 00:00:00 00:00:00 Only Stella 73256.1.1 it y of 3.412.2.7 [place] .3.056974 MD Beasley [facility] 2022-09-05 2022-09-05 Raul Clark, 1.2.840.1 [id number] Univers 00:00:00 00:00:00 Only Stella 67479.1.1 it y of 3.412.2.7 [place] .3.627020 MD Beasley [facility] 2022-08-29 2022-08-29 Uzma Akhtar, 1.2.840.1 [id number] 1103 [id number] Univers 00:00:00 00:00:00 Liz Flores 23343.1.1 ity of 3.412.2.7 [place] .3.097234 MD [facility]asley [facility] 2022-08-29 2022-08-29 Telephone Akhtar, 1.2.840.1 [id number] 1103 [id number] Univers 00:00:00 00:00:00 Liz Flores 57251.1.1 ity of 3.412.2.7 [place] .3.080933 MD Beasley [facility] 2022-06-19 2022-06-19 Orders Luis Angel, 1.2.840.1 [id number] Univers 00:00:00 00:00:00 Only Maria Fernanda Cervantes. 46576.1.1 ity of 3.412.2.7 [place] .3.018206 MD Haines8 [facility] 2022-06-19 2022-06-19 Orders Patriciorachael, 1.2.840.1 [id number] [facility] 00:00:00 00:00:00 Only Maria Fernanda Cervantes. 64891.1.1 ity of 3.412.2.7 [place] .3.890489 MD Beasley [facility] 2022-06-07 2022-06-07 [facility], 1.2.840.1 [id number] Univers 09:35:06 23:59:00 Encounter Stella 50322.1.1 ity of 3.412.2.7 [place] .3.347869 MD Beasley [facility] 2022-06-07 2022-06-07 [facility], 1.2.840.1 [id number] Univers 09:35:06 23:59:00 Encounter Stella 91166.1.1 ity of 3.412.2.7 [place] .3.377929 MD Beasley [facility] 2022-06-07 2022-06-07 Follow-Up Luis Angel, 1.2.840.1 [id number] Univers 12:00:00 14:14:09 Maria Fernanda Fu 71984.1.1 ity of 3.412.2.7 [place] .3.153454 MD Beasley [facility] 2022-06-07 2022-06-07 Follow-Up [place], 1.2.840.1 [id number] 10 [id number] Univers 12:00:00 14:14:09 Maria Fernanda Fu 47144.1.1 ity of 3.412.2.7 [place] .3.534947 MD Beasley [facility] 2022-06-07 2022-06-07 Evert Clark, 1.2.840.1 [id number] 1099 [id number] Univers 07:00:00 09:30:00 Procedure Stella 98145.1.1 ity of 3.412.2.7 [place] .3.455801 MD Beasley [facility] 2022-06-07 2022-06-07 Ancillary NICHOLE Clark, 1.2.840.1 [id number] 1099 [id number] Univers 07:00:00 09:30:00 Procedure Stella 47069.1.1 ity of 3.412.2.7 [place] .3.739268 MD Beasley [facility] 2022-06-07 2022-06-07 Raul Clark, 1.2.840.1 [id number] Univers 00:00:00 00:00:00 Only Stella 74308.1.1 it y of 3.412.2.7 [place] .3.038924 MD Beasley [facility] 2022-06-07 2022-06-07 Raul [place], 1.2.840.1 [id number] Univers 00:00:00 00:00:00 Only Maria Fernanda Fu 36391.1.1 ity of 3.412.2.7 [place] .3.622563 MD Beasley [facility] 2022-06-07 2022-06-07 Travel 1.2.840.1 1.2.077.830 8852 [id number] Univers 00:00:00 00:00:00 88345.1.1 350.1.13.41 ity of 3.412.2.7 2.2[place]7.3.698 [place]3.3817[place] 084.8 MD Beasley [facility] 2022-06-07 2022-06-07 Raul Clark, 1.2.840.1 [id number] Univers 00:00:00 00:00:00 Only Stella 14777.1.1 it y of 3.412.2.7 [place] .3.655167 MD Haines8 [facility] 2022-06-07 2022-06-07 Orders Luis Angel, 1.2.840.1 [id number] Univers 00:00:00 00:00:00 Only Maria Fernanda Fu 00243.1.1 ity of 3.412.2.7 [place] .3.127640 MD Haines8 [facility] 2022-06-07 2022-06-07 Travel 1.2.840.1 1.2.474.797 6153 [id number] Univers 00:00:00 00:00:00 48460.1.1 350.1.13.41 ity of 3.412.2.7 2.[place]7.3.698 [place] .3.04[place] 084.8 MD Beasley [facility] 2022-05-09 2022-05-09 Telephone Fab, 1.2.840.1 [id number] 1099 [id number] Univers 00:00:00 00:00:00 Mini F 76213.1.1 ity of 3.412.2.7 [place] .3.501493 MD Beasley [facility] 2022-05-03 2022-05-03 Raul Clark, 1.2.840.1 [id number] 0177 Univers 00:00:00 00:00:00 Only Stella 76061.1.1 it y of 3.412.2.7 [place] .3.697103 MD Haines8 [facility] 2022-05-03 2022-05-03 Telephone Zulema Cedillo 1.2.840.1 [id number] 1 [id number] Univers 00:00:00 00:00:00 A 27279.1.1 ity of 3.412.2.7 [place] .3.711523 MD Haines8 [facility] 2021-12-28 2021-12-28 Nurse Willis, 1.2.840.1 [id number] 1094 [id number] Univers 00:00:00 00:00:00 Triage Constantine 65192.1.1 ity of 3.412.2.7 [place] .3.350606 MD Haines8 [facility] 2021-12-28 2021-12-28 Documentat Luis Angel, 1.2.840.1 [id number] 1 [id number] Univers 00:00:00 00:00:00 ion Maria Fernanda CervantesYancy 02991.1.1 ity of 3.412.2.7 [place] .3.963981 MD Haines8 [facility] 2021-12-20 2021-12-20 Telephone Ger, 1.2.840.1 [id number] 1 [id number] Univers 00:00:00 00:00:00 Lolita 46515.1.1 ity of Ethelda 3.412.2.7 [place] .3.622760 MD Haines8 [facility] 2021-12-11 2021-12-11 Telephone Nuvia, 1.2.840.1 [id number] 1093 [id number] Univers 00:00:00 00:00:00 Bibiana Trevino 62241.1.1 ity of 3.412.2.7 [place] .3.936864 MD Haines8 [facility] 2021-12-05 2021-12-05 Telephone Tyson, 1.2.840.1 [id number] 1093 [id number] Univers 00:00:00 00:00:00 Kasie Lehman 48829.1.1 i ty of 3.412.2.7 [place] .3.754535 MD [facility]ley [facility] 2021-12-01 2021-12-01 Nurse Marshall, 1.2.840.1 [id number] Univers 00:00:00 00:00:00 Triage Erin Lehman 46756.1.1 i ty of 3.412.2.7 [place] .3.054585 MD Beasley [facility] 2021-11-13 2021-11-13 Orders Amber, 1.2.840.1 [id number] Univers 00:00:00 00:00:00 Only Stella 39878.1.1 it y of 3.412.2.7 [place] .3.915411 .8 [facility] 2021-11-13 2021-11-13 Telephone Edmund 1.2.840.1 [id number] 1092 [id number] Univers 00:00:00 00:00:00 Daisy N 66450.1.1 it y of 3.412.2.7 [place] .3.127537 .8 [facility] 2021-11-02 2021-11-02 Orders Fito Gutierres 1.2.840.1 [id number] 1092 [id number] Univers 00:00:00 00:00:00 Only Herrera 31334.1.1 ity of 3.412.2.7 [place] .3.942298 .8 [facility] 2021-11-02 2021-11-02 Nurse Karishma Chu 1.2.840.1 [id number] 10 [id number] Univers 00:00:00 00:00:00 Triage J 20113.1.1 ity of 3.412.2.7 [place] .3.537719 .8 [facility] 2021-10-15 2021-10-24 [facility] Verónica Diaz 1.2.840.1 [id number] Univers 09:35:00 17:00:00 Encounter Thelma Bowser 76499.1.1 ity of Judy, Ed 3.412.2.7 Gio as Glass, Son V. .3.469962 Boni Dominguez .8 [facility] 2021-10-24 2021-10-24 Nurse Guille 1.2.840.1 [id number] Univers 00:00:00 00:00:00 Triage Amsha 64565.1.1 ity of 3.412.2.7 [place] .3.786377 .Shaun [facility] 2021-10-23 2021-10-23 Inpatient NICHOLE OBRIEN MDA MDA [id number] 20:59:49 21:16:07 BONI zimmerman 2021-10-19 2021-10-19 Surgery Aisha, 1.2.840.1 [id number] 3915 Univers 15:10:00 15:50:00 Edwige 09745.1.1 ity of Ali 3.412.2.7 [place] .3.705078 .8 [facility] 2021-10-19 2021-10-19 Anesthesia Jenise Degroot 1.2.840.1 [id number] Univers 13:24:00 13:49:00 Event Dhiraj Fry 70687.1.1 ity of 3.412.2.7 [place] .3.007335 .8 [facility] 2021-10-18 2021-10-18 Prep for OCallie, 1.2.840.1 [id number] Univers 00:00:00 00:00:00 Surgery Shena 98373.1.1 [place].2.7 [place] .3.2505[place] .8 [facility] 2021-10-17 2021-10-17 Inpatient EL MARIA LUISA, SON MDA MDA [id number] 11:46:00 11:46:04 Bakari zimmerman 2021-10-16 2021-10-16 Inpatient EL PATRICIOELLA, MDA MDA [id number] 14:52:17 14:52:20 MARIA FERNANDA zimmerman 2021-10-16 2021-10-16 Inpatient EL FOSSELLA, MDA MDA [id number] 10:37:11 10:37:14 MARIA FERNANDA zimmerman 2021-10-16 2021-10-16 Inpatient EL PATRICIOELLA, MDA MDA [id number] 10:05:03 10:05:06 MARIA FERNANDA zimmerman 2021-10-15 2021-10-15 Inpatient EL JUDY, ED MDA MDA [id number] 23:20:17 23:40:10 Bakari zimmerman 2021-10-15 2021-10-15 Travel 1.2.840.1 1.2.552.267 0133 [id number] Univers 00:00:00 00:00:00 57548.1.1 350.1.13.41 ity of 3.412.2.7 2.[place]7.3.698 [place] .3.778415 084.8 MD Beasley [facility] 2021-10-11 2021-10-11 Orders Amber, 1.2.840.1 [id number] Univers 00:00:00 00:00:00 Only Stella 83697.1.1 it y of 3.412.2.7 [place] .3.345141 MD Haines8 [facility] 2021-10-10 2021-10-10 Orders Jaerika 1.2.840.1 [id number] Univers 00:00:00 00:00:00 Only Kaylyn 78248.1.1 ity of Deshawn 3.412.2.7 [place] .3.961061 MD Haines8 [facility] 2021-10-10 2021-10-10 Nurse Dean, 1.2.840.1 [id number] Univers 00:00:00 00:00:00 Triage Stella Stewart 48089.1.1 ity of 3.412.2.7 [place] .3.327500 MD Beasley [facility] 2021-10-10 2021-10-10 Uzma Thrasher, 1.2.840.1 [id number] 1091 [id number] Univers 00:00:00 00:00:00 Ileana Ann 51700.1.1 i ty of 3.412.2.7 [place] .3.215051 MD Beasley [facility] 2021-09-03 2021-09-07 [facility] Verónica Diaz 1.2.840.1 [id number] Univers 16:59:00 15:45:00 Mehrdad Valdez 40103.1.1 ity of Enriqueta Estes 3.412.2.7 [place] .3.055844 MD [facility]asley [facility] 2021-09-07 2021-09-07 Travel 1.2.840.1 1.2.330.573 3941 [id number] Univers 00:00:00 00:00:00 29811.1.1 350.1.13.41 ity of 3.412.2.7 2.2.7.3.698 [place] .3.532809 084.8 MD Beasley [facility] 2021-09-05 2021-09-05 [facility] NICHOLE HART MDA MDA [id number] 11:14:45 11:38:29 DANISH zimmerman 2021-09-03 2021-09-03 Travel 1.2.840.1 1.2.769.263 8131 [id number] Univers 00:00:00 00:00:00 10178.1.1 350.1.13.41 ity of 3.412.2.7 2.2.7.3.698 [place] .3.320628 084.8 MD Beasley [facility] 2021-09-03 2021-09-03 Telephone John, 1.2.840.1 [id number] 1090 [id number] Univers 00:00:00 00:00:00 Michael Lehman 45000.1.1 ity of 3.412.2.7 [place] .3.733282 MD Bealsey [facility] 2021-08-22 2021-08-22 Uzma Clark, 1.2.840.1 [id number] 1089 [id number] Univers 00:00:00 00:00:00 Stella 66826.1.1 it y of 3.412.2.7 [place] .3.657999 MD Beasley [facility] 2021-08-22 2021-08-22 Raul Clark, 1.2.840.1 [id number] 7139 Univers 00:00:00 00:00:00 Only Stella 64086.1.1 it y of 3.412.2.7 [place] .3.218663 MD Beasley [facility] 2021-08-20 2021-08-20 Raul Sanon 1.2.840.1 [id number] Univers 00:00:00 00:00:00 Only Lela Ramírez 12408.1.1 ity of 3.412.2.7 [place] .3.596639 MD Haines8 [facility] 2021-08-18 2021-08-18 Raul Clark 1.2.840.1 [id number] Univers 00:00:00 00:00:00 Only Stella 75884.1.1 it y of 3.412.2.7 [place] .3Yancy941417 MD Haines8 [facility] 2021-08-18 2021-08-18 Raul [place] 1.2.840.1 [id number] 1089 [id number] Univers 00:00:00 00:00:00 Only Maria Fernanda Fu 73189.1.1 ity of 3.412.2.7 [place] .3.854271 MD Haines8 [facility] 2021-08-17 2021-08-17 Zulema Viramontes 1.2.840.1 [id number] 1 [id number] Univers 00:00:00 00:00:00 Desiree 16336.1.1 ity of 3.412.2.7 [place] .3.597414 .8 [facility] 2021-08-14 2021-08-14 Office NICHOLE Piedra, 1.2.840.1 [id number] 2743 Univers 12:15:00 13:20:09 Visit Herrera 05156.1.1 ity of 3.412.2.7 [place] .3.427049 MD Haines8 [facility] 2021-08-14 2021-08-14 Office NICHOLE [place], 1.2.840.1 [id number] 1089 [id number] Univers 08:30:00 10:28:29 Visit Maria Fernanda Fu 37702.1.1 ity of 3.412.2.7 [place] .3Yancy802694 MD Haines8 [facility] 2021-08-14 2021-08-14 Raul Banda 1.2.840.1 [id number] Univers 00:00:00 00:00:00 Only Jacki 24706.1.1 ity of 3.412.2.7 [place] .3Yancy671944 MD Haines8 [facility] 2021-08-14 2021-08-14 Orders Caranto, 1.2.840.1 [id number] Univers 00:00:00 00:00:00 Only Sarah Ybarra 76563.1.1 ity of 3.412.2.7 [place] .3.388214 MD Beasley [facility] 2021-08-14 2021-08-14 Travel 1.2.840.1 1.2.884.495 4012 [id number] Univers 00:00:00 00:00:00 69430.1.1 350.1.13.41 ity of 3.412.2.7 2.2.7.3.698 [place] .3.697643 084.8 MD Beasley [facility] 2021-08-13 2021-08-13 [facility] 1.2.840.1 [id number] 10 [id number] Univers 09:45:00 23:59:00 Encounter 87167.1.1 it y of 3.412.2.7 [place] .3.461886 MD Beasley [facility] 2021-08-13 2021-08-13 [facility] NICHOLE Del [place], 1.2.840.1 [id number] Univers 06:35:00 09:44:00 Encounter Virgen 75580.1.1 it y of Chunyi 3.412.2.7 [place] .3.514881 MD Beasley [facility] 2021-08-13 2021-08-13 [facility] [place], 1.2.840.1 [id number] Univers 00:00:00 00:00:00 Only Virgen 54534.1.1 ity of Chunyi 3.412.2.7 [place] .3.764827 MD Beasley [facility] 2021-08-13 2021-08-13 Travel 1.2.840.1 1.2.689.074 2782 [id number] Univers 00:00:00 00:00:00 51906.1.1 350.1.13.41 ity of 3.412.2.7 2.2.7.3.698 [place] .3.970178 084.8 MD Haines8 [facility] 2021-08-11 2021-08-11 Refzuleyka [place], 1.2.840.1 [id number] 1089 [id number] Univers 00:00:00 00:00:00 Maria Fernanda Fu 45082.1.1 ity of 3.412.2.7 [place] .3.813120 .8 [facility] 2021-08-07 2021-08-07 Orders Jossy, 1.2.840.1 [id number] Univers 00:00:00 00:00:00 Only Abdirizak 82888.1.1 ity of 3.412.2.7 [place] .3.015328 MD Haines8 [facility] 2021-07-27 2021-07-27 Telephone Jarrett, 1.2.840.1 [id number] 1 [id number] Univers 00:00:00 00:00:00 Génesis Ann 19658.1.1 ity of 3.412.2.7 [place] .3.360136 MD Haines8 [facility] 2021-07-27 2021-07-27 Angel Clark, 1.2.840.1 [id number] 3833 Univers 00:00:00 00:00:00 Stella 92294.1.1 it y of 3.412.2.7 [place] .3.319534 MD Haines8 [facility] 2021-07-26 2021-07-26 Telephone Anais, 1.2.840.1 [id number] 1 [id number] Univers 00:00:00 00:00:00 Génesis Trevino 00119.1.1 ity of 3.412.2.7 [place] .3.444224 MD Haines8 [facility] 2021-07-26 2021-07-26 Raul Mendez, 1.2.840.1 [id number] Univers 00:00:00 00:00:00 Only Jackie 34673.1.1 ity of 3.412.2.7 [place] .3.425407 MD Haines8 [facility] 2021-07-26 2021-07-26 Refzuleyka Clark, 1.2.840.1 [id number] 1133 Univers 00:00:00 00:00:00 Stella 31876.1.1 it y of 3.412.2.7 [place] .3.438774 MD Haines8 [facility] 2021-07-19 2021-07-19 Telephone Edmund, 1.2.840.1 [id number] 1088 [id number] Univers 00:00:00 00:00:00 Daisy Zimmerman 86425.1.1 it y of 3.412.2.7 [place] .3.996527 MD Haines8 [facility] 2021-07-12 2021-07-12 Uzma Clark, 1.2.840.1 [id number] 1088 [id number] Univers 00:00:00 00:00:00 Stella 79932.1.1 it y of 3.412.2.7 [place] .3.834856 MD Haines8 [facility] 2021-07-11 2021-07-11 Raul Clark, 1.2.840.1 [id number] Univers 00:00:00 00:00:00 Only Stella 76138.1.1 it y of 3.412.2.7 [place] .3.272545 MD Beasley [facility] 2021-07-11 2021-07-11 Telephone Price, 1.2.840.1 [id number] 1088 [id number] Univers 00:00:00 00:00:00 Ileana Ann 19153.1.1 i ty of 3.412.2.7 [place] .3Yancy680022 MD Haines8 [facility] 2021-07-02 2021-07-02 Raul Clark, 1.2.840.1 [id number] 8647 Univers 00:00:00 00:00:00 Only Stella 70321.1.1 it y of 3.412.2.7 [place] .3.409486 MD Beasley [facility] 2021-06-27 2021-06-27 Raul Clark, 1.2.840.1 [id number] 6221 Univers 00:00:00 00:00:00 Only tSella 35379.1.1 it y of 3.412.2.7 [place] .3.387912 MD Haines8 [facility] 2021-06-25 2021-06-25 Raul Clark, 1.2.840.1 [id number] Univers 00:00:00 00:00:00 Only Stella 60896.1.1 it y of 3.412.2.7 [place] .3.879691 MD Haines8 [facility] 2021-06-14 2021-06-14 Telephone Ger, 1.2.840.1 [id number] 1 [id number] Univers 00:00:00 00:00:00 Lolita 72953.1.1 ity of Ethelda 3.412.2.7 [place] .3.268098 MD Haines8 [facility] 2021-06-11 2021-06-11 Raul Clark, 1.2.840.1 [id number] 4227 Univers 00:00:00 00:00:00 Only Stella 84237.1.1 it y of 3.412.2.7 [place] .3.314304 MD Haines8 [facility] 2021-06-09 2021-06-09 Angel Rivas, 1.2.840.1 [id number] [id number] Univers 00:00:00 00:00:00 Yudith Lehman 67668.1.1 ity of 3.412.2.7 [place] .3.665446 MD Haines8 [facility] 2021-06-06 2021-06-06 Telephone Anais, 1.2.840.1 [id number] 1 [id number] Univers 00:00:00 00:00:00 Génesis Trevino 25403.1.1 ity of 3.412.2.7 [place] .3.022365 MD Haines8 [facility] 2021-05-21 2021-05-21 Surgery Tobin, 1.2.840.1 [id number] Univers 14:50:00 15:20:00 Claude 98890.1.1 ity of 3.412.2.7 [place] .3.643717 MD Beasley [facility] 2021-05-21 2021-05-21 [facility] Tobin, 1.2.840.1 [id number] [id number] Univers 12:54:00 13:30:00 Encounter Claude 23893.1.1 it y of 3.412.2.7 [place] .3.858188 MD Beasley [facility] 2021-05-21 2021-05-21 Travel 1.2.840.1 1.2.092.343 5125 [id number] Univers 00:00:00 00:00:00 76112.1.1 350.1.13.41 ity of 3.412.2.7 [place]3.698 [place] .3.814785 084.8 MD [facility] 2021-05-17 2021-05-17 Prep for Yannick, 1.2.840.1 [id number] Univers 00:00:00 00:00:00 Surgery Elmira Zimmerman 25571.1.1 it y of 3.412.2.7 [place] .3.248624 MD [facility] 2021-05-17 2021-05-17 Raul Clark, 1.2.840.1 [id number] Univers 00:00:00 00:00:00 Only Stella 27969.1.1 it y of 3.412.2.7 [place] .3.634461 MD [facility] 2021-05-16 2021-05-16 Raul Clark, 1.2.840.1 [id number] Univers 00:00:00 00:00:00 Only Stella 36659.1.1 it y of 3.412.2.7 [place] .3.754988 MD [facility] 2021-05-16 2021-05-16 Telephone Ger, 1.2.840.1 [id number] Univers 00:00:00 00:00:00 Lolita 83040.1.1 ity of [place] 3.412.2.7 [place] .3.517551 MD Haines8 [facility] 2021-05-16 2021-05-16 Telephone Ger, 1.2.840.1 [id number] Univers 00:00:00 00:00:00 Lolita 15800.1.1 ity of [place] 3.412.2.7 [place] .3.924527 MD Haines8 [facility] 2021-05-14 2021-05-14 Raul Javed, 1.2.840.1 [id number] Univers 00:00:00 00:00:00 Only Giovanna Tanner 64178.1.1 i ty of 3.412.2.7 [place] .3.199137 MD [facility] 2021-04-27 2021-04-27 Raul Clark 1.2.840.1 [id number] Univers 00:00:00 00:00:00 Only Stella 36753.1.1 it y of 3.412.2.7 [place] .3.341339 MD Haines8 [facility] 2021-04-25 2021-04-25 Raul Clark 1.2.840.1 [id number] Univers 00:00:00 00:00:00 Only Stella 79321.1.1 it y of 3.412.2.7 [place] .3.451634 MD Haines8 [facility] 2021-04-23 2021-04-23 [facility] Raymundo Metcalf 1.2.840.1 [id number] Univers 09:38:02 23:59:00 Encounter 46063.1.1 it y of 3.412.2.7 [place] .3.435507 MD [facility] 2021-04-23 2021-04-23 Raul Del Rosario 1.2.840.1 [id number] Univers 00:00:00 00:00:00 Only Virgen 10953.1.1 ity of [place] 3.412.2.7 [place] .3.788057 MD [facility] 2021-04-23 2021-04-23 Raul Del Rosario, 1.2.840.1 [id number] Univers 00:00:00 00:00:00 Only Virgen 78511.1.1 ity of [place] 3.412.2.7 [place] .3.656081 MD Haines8 [facility] 2021-04-23 2021-04-23 Raul Del Rosario, 1.2.840.1 [id number] Univers 00:00:00 00:00:00 Only Virgen 09184.1.1 ity of [place] 3.412.2.7 [place] .3.810421 MD [facility] 2021-04-23 2021-04-23 Raul Del Rosario, 1.2.840.1 [id number] Univers 00:00:00 00:00:00 Only Virgen 45183.1.1 ity of [place] 3.412.2.7 [place] .3.966974 MD [facility] 2021-04-23 2021-04-23 Travel 1.2.840.1 1.2.299.595 [id number] Univers 00:00:00 00:00:00 32260.1.1 350.1.13.41 ity of 3.412.2.7 [place]3.698 [place] .3.469161 084.8 MD [facility] 2021-04-20 2021-04-20 Hospital [facility], 1.2.840.1 [id number] Univers 11:46:55 23:59:00 Encounter Maria Fernanda Fu 88323.1.1 i ty of 3.412.2.7 [place] .3.353458 MD [facility] 2021-04-20 2021-04-20 Ancillary [facility], 1.2.840.1 [id number] Univers 09:15:00 11:00:00 Procedure Maria Fernanda Fu 16964.1.1 i ty of 3.412.2.7 [place] .3.345988 MD [facility] 2021-04-20 2021-04-20 Travel 1.2.840.1 1.2.998.319 [id number] [id number] Univers 00:00:00 00:00:00 71714.1.1 350.1.13.41 ity of 3.412.2.7 [place]3.698 [place] .3.117672 084.8 MD [facility] 2021-04-16 2021-04-16 Hospital [facility], 1.2.840.1 [id number] Univers 09:30:00 23:59:00 Encounter Mary Beth Seth 43945.1.1 i ty of 3.412.2.7 [place] .3.678884 MD [facility] 2021-04-16 2021-04-16 Office Rah, 1.2.840.1 [id number] Univers 09:00:00 10:36:47 Visit Herrera 65262.1.1 ity of 3.412.2.7 [place] .3.467356 MD [facility] 2021-04-16 2021-04-16 Travel 1.2.840.1 1.2.267.611 [id number] Univers 00:00:00 00:00:00 51596.1.1 350.1.13.41 ity of 3.412.2.[place].3.698 [place] .3.[place] 084.8 MD Beasley [facility] 2021-04-13 2021-04-13 Raul Giraldo 1.2.840.1 [id number] Univers 00:00:00 00:00:00 Only Florinavaleriano 22939.1.1 ity of 3.412.2.7 [place] .3.198510 MD Beasley [facility] 2021-04-07 2021-04-07 Raul Murguia 1.2.840.1 [id number] Univers 00:00:00 00:00:00 Only Kaylyn, 13692.1.1 ity of [place]hawn 3.412.2.7 [place] .3.468213 MD Haines8 [facility] 2021-04-07 2021-04-07 Nurse Taylor, 1.2.840.1 [id number] Univers 00:00:00 00:00:00 Triage Juan Lehman 34636.1.1 it y of 3.412.2.7 [place] .3.236526 MD Haines8 [facility] 2021-04-05 2021-04-05 Raul Clark, 1.2.840.1 [id number] Univers 00:00:00 00:00:00 Only Stella 38032.1.1 it y of 3.412.2.7 [place] .3.420240 MD Haines8 [facility] 2021-04-04 2021-04-04 Angel Gonzalez, 1.2.840.1 [id number] 6225 Univers 00:00:00 00:00:00 Enriqueta Ramírez 94028.1.1 it y of 3.412.2.7 [place] .3.823449 MD Haines8 [facility] 2021-04-04 2021-04-04 Gabrielle Osborne 1.2.840.1 [id number] Univers 00:00:00 00:00:00 Graciela 54412.1.1 ity of 3.412.2.7 [place] .3.127004 MD Haines8 [facility] 2021-04-03 2021-04-03 Gillian Marr, 1.2.840.1 [id number] Univers 14:00:00 14:00:00 Alina 35290.1.1 ity of 3.412.2.7 [place] .3.588892 MD Beasley [facility] 2021-03-30 2021-03-30 Raul Clark, 1.2.840.1 [id number] Univers 00:00:00 00:00:00 Only Stella 96201.1.1 it y of 3.412.2.7 [place] .3.726125 MD Haines8 [facility] 2021-03-29 2021-03-29 Raul Clark, 1.2.840.1 [id number] Univers 00:00:00 00:00:00 Only Stella 81733.1.1 it y of 3.412.2.7 [place] .3.260638 MD Haines8 [facility] 2021-03-27 2021-03-27 Raul Clark, 1.2.840.1 [id number] 9970 Univers 00:00:00 00:00:00 Only Stella 93865.1.1 it y of 3.412.2.7 [place] .3.100409 MD Haines8 [facility] 2021-03-27 2021-03-27 Angel Santillan, 1.2.840.1 [id number] Univers 00:00:00 00:00:00 Nanette Stewart 50260.1.1 ity of 3.412.2.7 [place] .3.129124 MD Haines8 [facility] 2021-03-09 2021-03-09 Raul Perez, 1.2.840.1 [id number] Univers 00:00:00 00:00:00 Only Tanja Mora 33868.1.1 ity of 3.412.2.7 [place] .3.811901 MD Haines8 [facility] 2021-03-08 2021-03-08 Raul Clark 1.2.840.1 [id number] Univers 00:00:00 00:00:00 Only Stella 95867.1.1 it y of 3.412.2.7 [place] .3Yancy811151 MD Haines8 [facility] 2021-03-07 2021-03-07 Raul Perez, 1.2.840.1 [id number] Univers 00:00:00 00:00:00 Only Tanja Mora 97535.1.1 ity of 3.412.2.7 [place] .3.849068 .8 [facility] 2021-03-07 2021-03-07 Documentat Odaro, 1.2.840.1 [id number] Univers 00:00:00 00:00:00 ion Milagrose 35220.1.1 ity of 3.412.2.7 [place] .3.148070 .8 [facility] 2021-03-07 2021-03-07 Refzuleyka Rivas, 1.2.840.1 [id number] Univers 00:00:00 00:00:00 Yudith Lehman 78260.1.1 ity of 3.412.2.7 [place] .3.474426 .8 [facility] 2021-03-07 2021-03-07 Documentat Shivam, 1.2.840.1 [id number] Univers 00:00:00 00:00:00 ion Sahara 85915.1.1 ity of [place] 3.412.2.7 [place] .3.414424 .8 [facility] 2021-02-16 2021-03-02 Inpatient UR [facility]J [facility] [id number] 13:50:00 18:30:00 IRINA zimmerman 2021-03-02 2021-03-02 Inpatient NICHOLE SMITHANUJ MDA [id number] 10:28:13 10:52:29 IRINA zimmerman 2021-03-01 2021-03-01 Inpatient GABRIELLE SQUIRES MDA MDA [id number] 13:48:32 14:24:14 Bakari zimmerman 2021-02-28 2021-02-28 Inpatient GABRIELLE SQUIRES MDA MDA [id number] 15:34:04 16:08:02 Bakari zimmerman 2021-02-27 2021-02-27 Inpatient NICHOLE ANUJ [place] MDA [id number] 11:31:18 11:31:23 MARIA FERNANDA zimmerman 2021-02-23 2021-02-23 Inpatient NICHOLE GARCIA MDA MDA [id number] 08:50:18 09:09:38 MARCIN izmmerman 2021-02-20 2021-02-20 Inpatient EL HALM, MDA MDA [id number] 21:52:07 22:45:31 MAYANK Bakari o erasmo 2021-02-19 2021-02-19 Inpatient EL HALM, MDA MDA [id number] 16:34:08 16:35:56 MAYANK Villegas o erasmo 2021-02-19 2021-02-19 Inpatient EL HALM, MDA MDA [id number] MD 14:32:55 14:50:27 MAYANK Villegas o erasmo 2021-02-19 2021-02-19 Inpatient EL FOSSELLA, MDA MDA [id number] 11:06:11 11:06:14 MARIA FERNANDA zimmerman 2021-02-18 2021-02-18 Inpatient EL HALM, MDA MDA [id number] 15:44:22 16:22:28 MAYANK Villegas o erasmo 2021-02-17 2021-02-17 Inpatient EL MARIA LUISA, TOD MDA MDA [id number] 03:53:53 04:06:50 Bakari zimmerman 2021-01-21 2021-01-30 Inpatient ER ODARO, MDA [facility] [id number] 21:38:00 18:36:00 BENEDICTO zimmerman 2021-01-30 2021-01-30 Inpatient EL FOSSELLA, MDA MDA [id number] 15:18:04 15:18:06 MARIA FERNANDA zimmerman 2021-01-28 2021-01-28 Inpatient EL AL AMERI, MDA MDA [id number] 13:47:27 13:49:05 RASHAAD zimmerman 2021-01-25 2021-01-25 Inpatient EL AL AMERI, MDA MDA [id number] 20:37:26 20:37:30 RASHAAD zimmerman 2021-01-24 2021-01-24 Inpatient EL AL AMERI, MDA MDA [id number] 08:18:01 08:38:37 RASHAAD zimmerman 2021-01-22 2021-01-22 Inpatient EL AL AMERI, MDA MDA [id number] 19:02:05 19:25:15 RASHAAD zimmerman 2021-01-04 2021-01-19 Inpatient ER SIMBAQUEBA [facility] [id number] 11:01:00 16:25:00 Levi RAJPUT 2021-01-18 2021-01-18 Inpatient EL FOSSELLA, MDA MDA [id number] 11:15:46 11:15:49 MARIA FERNANDA zimmerman 2021-01-15 2021-01-15 Inpatient EL FOSSELLA, MDA MDA [id number] 10:54:17 10:54:19 MARIA FERNANDA zimmerman 2021-01-14 2021-01-14 Inpatient EL RAMSEY, MDA MDA [id number] 12:12:50 13:22:39 TORRESJOY zimmerman 2021-01-12 2021-01-12 Inpatient EL FOSSELLA, MDA MDA [id number] 11:16:26 11:16:28 MARIA FERNANDA zimmerman 2021-01-10 2021-01-10 Inpatient EL FOSSELLA, MDA MDA [id number] 12:34:26 12:34:30 MARIA FERNANDA zimmerman 2021-01-09 2021-01-09 Inpatient EL ESTES, MDA MDA [id number] 21:30:37 21:42:18 ENRIQUETA zimmerman 2021-01-08 2021-01-08 Inpatient EL ESTES, MDA MDA [id number] 11:15:00 12:40:27 ENRIQUETA zimmerman 2021-01-07 2021-01-07 Inpatient EL SYLVESTERAMMED, MDA MDA [id number] 09:48:34 10:43:19 BONI zimmerman 2021-01-05 2021-01-05 Inpatient EL FOSSELLA, MDA MDA [id number] 10:28:44 10:28:46 MARIA FERNANDA zimmerman 2020-12-26 2020-12-26 Outpatient EL FOSSELLA, MDA MDA [id number] 13:17:22 13:49:03 MARIA FERNANDA zimmerman 2020-12-22 2020-12-22 Outpatient EL FOSSELLA, MDA MDA [id number] 15:44:28 15:44:28 MARIA FERNANDA zimmerman 2020-12-20 2020-12-20 Outpatient EL PATRICIOELLA, MDA MDA [id number] 14:45:38 15:10:28 MARIA FERNANDA zimmerman 2020-12-19 2020-12-19 Outpatient EL PATRICIOELLA, MDA MDA [id number] 15:02:13 15:33:05 MARIA FERNANDA zimmerman 2020-12-18 2020-12-18 Outpatient EL LUIS ANGEL, MDA MDA [id number] 14:30:00 23:59:00 MARIA FERNANDA zimmerman 2020-12-18 2020-12-18 Outpatient RAYMUNDO METCALF MDA MDA [id number] 15:34:19 15:34:19 Bakari zimmerman 2020-12-18 2020-12-18 Outpatient EL PATRICIOELLA, MDA MDA [id number] 14:39:45 15:30:31 MARIA FERNANDA zimmerman 2020-12-15 2020-12-15 Outpatient NICHOLE WASHINGTON, MDA MDA [id number] 14:01:01 14:06:41 MARIA FERNANDA zimmerman 2020-11-20 2020-11-24 Inpatient X RUSSELL GIRALDO [facility] PUJA [id number] Univers 00:18:00 16:31:00 [facility] 2020-10-26 2020-10-26 Outpatient R [facility] [id number] Univers 09:00:00 09:00:00 [facility] 2020-10-17 2020-10-17 Outpatient R DIOGO, [facility] [id number] Univers 09:30:00 09:30:00 GUILLE [facility] 2020-07-27 2020-07-27 Outpatient R UNKNOWN, [facility] [id number] Univers 14:30:00 14:30:00 ATTENDING [facility] 2020-07-05 2020-07-05 Outpatient NICHOLE PIEDRA, MDA MDA [id number] MD 10:29:44 10:55:21 HERRERA zimmerman 2020-04-28 2020-04-29 Inpatient HCAMN DANDRE [id number] [facility] 02:28:00 09:27:09 18 [facility] 2020-04-27 2020-04-27 Outpatient NICHOLE WASHINGTON, MDA MDA [id number] 06:26:24 06:26:24 MARIA FERNANDA zimmerman 2020-04-25 2020-04-25 Outpatient EL FOSSELLA, MDA MDA [id number] 15:16:25 23:59:00 MARIA FERNANDA zimmerman 2020-04-25 2020-04-25 Outpatient EL FOSSELLA, MDA MDA [id number] 16:52:13 16:52:13 MARIA FERNANDA zimmerman 2020-04-21 2020-04-21 Outpatient EL FOSSELLA, MDA MDA [id number] 12:34:59 15:51:01 MARIA FERNANDA zimmerman 2020-04-17 2020-04-17 Outpatient EL ROCKY RODRIGUEZ MDA MDA [id number] 11:29:21 23:59:00 Bakari o erasmo 2020-04-17 2020-04-17 Outpatient EL MDA MDA [id number] 09:00:09 11:28:00 Bakari o erasmo 2020-04-17 2020-04-17 Outpatient EL ROSA MARIA, MDA MDA [id number] MD 09:38:52 11:12:52 CODY zimmerman 2020-04-14 2020-04-14 Outpatient EL MDA MDA [id number] 11:14:57 23:59:00 Bakari o erasmo 2020-04-14 2020-04-14 Outpatient EL AURELIANO EDWARD MDA MDA [id number] 12:35:21 13:51:10 Bakari o erasmo 2020-04-14 2020-04-14 Outpatient EL MDA MDA [id number] 08:26:38 11:13:00 Bakari o erasmo 2020-04-13 2020-04-13 Outpatient EL MDA MDA [id number] 15:45:00 23:59:00 Bakari o erasmo 2020-04-13 2020-04-13 Outpatient EL MDA MDA [id number] 13:53:11 15:44:00 Bakari o erasmo 2020-04-13 2020-04-13 Outpatient EL MDA MDA [id number] MD 13:27:19 13:52:00 Bakari o erasmo 2020-04-13 2020-04-13 Outpatient EL MDA MDA [id number] MD 10:45:00 13:26:00 Bakari o erasmo 2020-04-13 2020-04-13 Outpatient EL CARNE, MDA MDA [id number] 07:39:14 10:44:00 CODY zimmerman 2020-04-12 2020-04-12 Outpatient EL ILIESCU, MDA MDA [id number] 12:45:00 23:59:00 ORACIO Villegas o erasmo 2020-04-11 2020-04-11 Outpatient EL BRENDON, MDA MDA [id number] MD 11:45:00 23:59:00 NANETTE zimmerman 2020-04-11 2020-04-11 Outpatient EL BRENDON, MDA MDA [id number] MD 11:23:21 11:23:21 NANETTE Villegas o erasmo 2020-03-31 2020-03-31 Outpatient EL ZOEYATSally, MDA MDA [id number] 08:00:00 23:59:00 MAURICIO zimmerman 2020-03-31 2020-03-31 Outpatient EL ROSA MARIA, MDA MDA [id number] MD 08:51:09 09:59:36 CODY zimmerman 2020-03-20 2020-03-20 Outpatient EL ILIESCU, MDA MDA [id number] 10:02:47 10:02:47 ORACIO Leesers o erasmo 2020-03-20 2020-03-20 Outpatient EL REGINA, MDA MDA [id number] 09:57:25 09:57:25 HAYLEY Leesers o n 2020-03-10 2020-03-10 Outpatient EL REGINA, MDA MDA [id number] 08:10:34 08:10:34 HAYLEY Leesers o n 2020-03-02 2020-03-02 Outpatient EL REGINA, MDA MDA [id number] 12:40:44 23:59:00 HAYLEY Leesers o n 2020-03-02 2020-03-02 Outpatient EL ILIESCU, MDA MDA [id number] 10:20:00 14:05:06 ORACIO Leesers o n 2020-03-02 2020-03-02 Outpatient EL REGINA, MDA MDA [id number] 12:15:00 12:39:00 HAYLEY Leesers o n 2020-03-02 2020-03-02 Outpatient EL ILIESCU, MDA MDA [id number] MD 10:29:25 10:29:25 ORACIO Leesers o n 2020-03-02 2020-03-02 Outpatient EL MDA MDA [id number] MD 10:00:01 10:00:10 Bakarijanice zimmerman 2020-02-29 2020-02-29 Outpatient EL [facility] ANUJ [id number] 13:58:52 14:24:33 Bakari zimmerman 2019-08-26 2019-08-26 Outpatient [facility] [id number] [facility] 12:48:00 12:48:00 [facility] 2019-08-12 2019-08-15 Inpatient HCAMN DANDRE [id number] [facility] 20:09:00 22:33:31 69 [facility] Results Test Description Test Time Test Comments Results Result Comments Source FUNGUS CULTURE + SMEAR 2023-05-07 10:47:04 Test Item Value Reference Range Interpretation Comme nts CULTURE ([facility]) (test code = A 2+ Same organism has been isolated 1094) from culture(s) of the same body site and collection date. Repeat identification performed only after consultation wi th the clinical microbiology [facility].Refer to previous cultur e ofCandida dubliniensis FUNGUS SMEAR ([facility]) (test No fungi seen code = 1406) POCT-GLUCOSE [id number] 11:55:52 Test Item Value Reference Range Interpretation Comments POC-GLUCOSE METER 133 mg/dL 70-110 H : TESTED A T [facility] 6720 ([employer]) (test code = [facility], 153) 82058: Lending Consultant/Techni bang ID = [id number] for Pa til, Adrián POCT-GLUCOSE [id number] 07:41:44 Test Item Value Reference Range Interpretation Comments POC-GLUCOSE METER 75 mg/dL 70-110 : TESTED A T [facility] 6720 (BEAKER) (test code = [facility], 1538) 93572: Lending Consultant/Techni bang ID = [id number] for Amy l, Adrián POCT-GLUCOSE [id number] 21:44:15 Test Item Value Reference Range Interpretation Comments POC-GLUCOSE METER 134 mg/dL 70-110 H : TESTED A T [facility] 6720 (BEAKER) (test code = [facility], 1538) 41175: Lending Consultant/Techni bang ID = [id number] for GABRIELE LiE POCT-GLUCOSE [id number] 18:03:58 Test Item Value Reference Range Interpretation Comments POC-GLUCOSE METER 116 mg/dL 70-110 H : TESTED A T [facility] 6720 (BEAKER) (test code = [facility], 1538) 15323: Lending Consultant/Techni bang ID = [id number] for Padmini Guillen POCT-GLUCOSE [id number] 12:36:46 Test Item Value Reference Range Interpretation Comments POC-GLUCOSE METER 96 mg/dL 70-110 : TESTED A T [facility] 6720 (BEAKER) (test code = [facility], 1538) 92634: Lending Consultant/Techni bang ID = [id number] for GalPadmini redman POCT-GLUCOSE [id number] 09:32:54 Test Item Value Reference Range Interpretation Comments POC-GLUCOSE METER 101 mg/dL 70-110 : TESTED A T [facility] 6720 (BEAKER) (test code = [facility], 1538) 57955: Lending Consultant/Techni bang ID = [id number] for Padmini Guillen CBC W/PLT COUNT & AUTO [id number] 06:57:56 Test Item Value Reference Range Interpretation Comments WHITE BLOOD CELL COUNT (BEAKER) 11.5 K/ L 3.5-10.5 H (test code = 775) RED BLOOD CELL COUNT (BEAKER) 2.82 M/ L 4.63-6.08 L (test code = 761) HEMOGLOBIN (BEAKER) (test code = 8.6 GM/DL 13.7-17.5 L 410) HEMATOCRIT (BEAKER) (test code = 27.9 % 40.1-51.0 L 411) MEAN CORPUSCULAR VOLUME (BEAKER) 99 fL 79-92 H (test code = 753) MEAN CORPUSCULAR HEMOGLOBIN 30.5 pg 25.7-32.2 (BEAKER) (test code = 751) MEAN CORPUSCULAR HEMOGLOBIN CONC 30.8 GM/DL 32.3-36.5 L (BEAKER) (test code = 752) RED CELL DISTRIBUTION WIDTH 18.6 % 11.6-14.4 H (BEAKER) (test code = 412) PLATELET COUNT (BEAKER) (test 443 K/CU MM 150-450 code = 756) MEAN PLATELET VOLUME (BEAKER) 9.7 fL 9.4-12.4 (test code = 754) NUCLEATED RED BLOOD CELLS 0 /100 WBC 0-0 (BEAKER) (test code = 413) NEUTROPHILS RELATIVE PERCENT 70 % (BEAKER) (test code = 429) LYMPHOCYTES RELATIVE PERCENT 19 % (BEAKER) (test code = 430) MONOCYTES RELATIVE PERCENT 6 % (BEAKER) (test code = 431) EOSINOPHILS RELATIVE PERCENT 4 % (BEAKER) (test code = 432) BASOPHILS RELATIVE PERCENT 0 % (BEAKER) (test code = 437) NEUTROPHILS ABSOLUTE COUNT 8.10 K/ L 1.78-5.38 H (BEAKER) (test code = 670) LYMPHOCYTES ABSOLUTE COUNT 2.20 K/ L 1.32-3.57 (BEAKER) (test code = 414) MONOCYTES ABSOLUTE COUNT (BEAKER) 0.63 K/ L 0.30-0.82 (test code = 415) EOSINOPHILS ABSOLUTE COUNT 0.46 K/ L 0.04-0.54 (BEAKER) (test code = 416) BASOPHILS ABSOLUTE COUNT (BEAKER) 0.02 K/ L 0.01-0.08 (test code = 417) IMMATURE GRANULOCYTES-RELATIVE 0.80 % 0.00-1.00 PERCENT (BEAKER) (test code = 2801) [id number] 06:44:45 Test Item Value Reference Range Interpretation Comments PHOSPHORUS (BEAKER) (test code = 2.8 mg/dL 2.3-4.7 604) Lending Consultant ID - ADMINHEPATIC FUNCTION [id number] 06:44:45 Test Item Value Reference Range Interpretation Comments TOTAL PROTEIN (BEAKER) (test code = 5.6 gm/dL 6.0-8.3 L 770) ALBUMIN (BEAKER) (test code = 1145) 2.9 g/dL 3.5-5.0 L BILIRUBIN TOTAL (BEAKER) (test code 0.3 mg/dL 0.2-1.2 = 377) BILIRUBIN DIRECT (BEAKER) (test 0.2 mg/dL 0.1-0.5 code = 706) ALKALINE PHOSPHATASE (BEAKER) (test 107 U/L 40-150 code = 346) AST (SGOT) (BEAKER) (test code = 10 U/L 5-34 353) ALT (SGPT) (BEAKER) (test code = 13 U/L 6-55 347) Lending Consultant ID - [id number] 06:44:44 Test Item Value Reference Range Interpretation Comments MAGNESIUM (BEAKER) (test code = 1.9 mg/dL 1.6-2.6 627) Lending Consultant ID - ADMINBASIC METABOLIC [id number] 06:44:43 Test Item Value Reference Range Interpretation Comments SODIUM (BEAKER) 138 meq/L 136-145 (test code = 381) POTASSIUM 3.9 meq/L 3.5-5.1 (BEAKER) (test code = 379) CHLORIDE (BEAKER) 102 meq/L 98-107 (test code = 382) CO2 (BEAKER) 28 meq/L 22-29 (test code = 355) BLOOD UREA 14 mg/dL 7-21 NITROGEN (BEAKER) (test code = 354) CREATININE 0.59 mg/dL 0.57-1.25 (BEAKER) (test code = 358) GLUCOSE RANDOM 101 mg/dL 70-105 (BEAKER) (test code = 652) CALCIUM (BEAKER) 8.4 mg/dL 8.4-10.2 (test code = 697) EGFR (BEAKER) 104 Interpretatio n of eGFR (test code = mL/min/1.73 values Stage D escription 1092) sq m Result G1 Paras l or high >=90 G2 Mildly decreased 60-89 G3a Mildl y to moderately 45-5 9 G3b Moderately to s everely 30-44 G4 Severl y decreased 15-29 G5 Kidney failure <15Reported eGF R is based on the CKD-EPI 2020 equation that d oes not use a race coefficientEsti mated GFR is not as accur ate as Creatinine Laurel benton in predicting glom erular filtration rate . Estimated GFR is not appl icable for dialysis patien ts Lending Consultant ID - ADMINCALCIUM, [id number] 06:19:37 Test Item Value Reference Range Interpretation Comments CALCIUM IONIZED (BEAKER) (test 1.18 mmol/L 1.12-1.27 code = 698) PH, BLOOD (BEAKER) (test code = 7.37 1810) POCT-GLUCOSE [id number] 21:53:15 Test Item Value Reference Range Interpretation Comments POC-GLUCOSE METER 281 mg/dL 70-110 H : TESTED A T [facility] 6720 (BEAKER) (test code = NISA Mas[place], 1538) 76976: Lending Consultant/Techni bang ID = [id number] for CINDY Li POCT-GLUCOSE [id number] 17:53:45 Test Item Value Reference Range Interpretation Comments POC-GLUCOSE METER 143 mg/dL 70-110 H : TESTED A T [facility] 6720 (BEAKER) (test code = NISA Massey [place], 1538) 90599: Lending Consultant/Techni bang ID = [id number] for Juana Meza [id number] 09:57:47 Test Item Value Reference Range Interpretation Comments LIPASE (BEAKER) (test code = 749) 19 U/L 8-78 Lending Consultant ID - MARCOCBC W/PLT COUNT & AUTO [id number] 09:28:17 Test Item Value Reference Range Interpretation Comments WHITE BLOOD CELL COUNT (BEAKER) 21.0 K/ L 3.5-10.5 H (test code = 775) RED BLOOD CELL COUNT (BEAKER) 2.80 M/ L 4.63-6.08 L (test code = 761) HEMOGLOBIN (BEAKER) (test code = 8.6 GM/DL 13.7-17.5 L 410) HEMATOCRIT (BEAKER) (test code = 27.4 % 40.1-51.0 L 411) MEAN CORPUSCULAR VOLUME (BEAKER) 98 fL 79-92 H (test code = 753) MEAN CORPUSCULAR HEMOGLOBIN 30.7 pg 25.7-32.2 (BEAKER) (test code = 751) MEAN CORPUSCULAR HEMOGLOBIN CONC 31.4 GM/DL 32.3-36.5 L (BEAKER) (test code = 752) RED CELL DISTRIBUTION WIDTH 18.3 % 11.6-14.4 H (BEAKER) (test code = 412) PLATELET COUNT (BEAKER) (test 411 K/CU MM 150-450 code = 756) MEAN PLATELET VOLUME (BEAKER) 9.0 fL 9.4-12.4 L (test code = 754) NUCLEATED RED BLOOD CELLS 0 /100 WBC 0-0 (BEAKER) (test code = 413) NEUTROPHILS RELATIVE PERCENT 81 % (BEAKER) (test code = 429) LYMPHOCYTES RELATIVE PERCENT 12 % (BEAKER) (test code = 430) MONOCYTES RELATIVE PERCENT 4 % (BEAKER) (test code = 431) EOSINOPHILS RELATIVE PERCENT 2 % (BEAKER) (test code = 432) BASOPHILS RELATIVE PERCENT 0 % (BEAKER) (test code = 437) NEUTROPHILS ABSOLUTE COUNT 17.00 K/ L 1.78-5.38 H (BEAKER) (test code = 670) LYMPHOCYTES ABSOLUTE COUNT 2.53 K/ L 1.32-3.57 (BEAKER) (test code = 414) MONOCYTES ABSOLUTE COUNT (BEAKER) 0.83 K/ L 0.30-0.82 H (test code = 415) EOSINOPHILS ABSOLUTE COUNT 0.48 K/ L 0.04-0.54 (BEAKER) (test code = 416) BASOPHILS ABSOLUTE COUNT (BEAKER) 0.04 K/ L 0.01-0.08 (test code = 417) IMMATURE GRANULOCYTES-RELATIVE 0.60 % 0.00-1.00 PERCENT (BEAKER) (test code = 2801) CT ABDOMEN/PELVIS WITH IV [id number] 09:14:56 [facility] : 1955 Sex: MCT of the abdomen and pelvis with contrast:History: Abdominal pain, rising leukocytosisMultidetectorCT of the abdomen and pelvis was performed followingintravenous injection of contrast. Dose reduction technique was employedusing automated exposure control and adjustment of mA and/or kVaccording to patient size. Compared to 04/25/2023.A small right pleural effusion has increased since the priorexamination. A small left pleural effusion appears unchanged.Emphysematous changes in the lung bases are again noted. Noconsolidation is identified.Small volume pneumoperitoneum is now noted. The patient hasundergonecholecystectomy since the prior examination however. Limitedsubcutaneous emphysema in the lower pelvis is also incidentally noted.The liver and spleen show no significant abnormality. A commonbile ductstent is again present. There is no pancreatic ductal dilatation orpancreatic inflammatory changes. The adrenals and kidneys areunremarkable. Atherosclerotic vascular calcification is again noted.The bladder is unremarkable. There is questionable mild wall thickeningversus incomplete distention in the sigmoid colon and similar changessuggested in the cecum but no surrounding inflammatory change. Correlatewith clinical findings. The appendix appears normal.There is no ascites or lymphadenopathy. There are no acute bonyabnormalities.IMPRESSION:1. Interval changes of cholecystectomy. Presumedpostoperativepneumoperitoneum.2. Questionable wall thickening in the sigmoid colon and proximal colon.Correlate with clinical findings.3. Small pleural effusions.Electronically Signed By: Magdiel Villalobos05/02/2023 09:17 CDTWorkstation Name: [id number](CELLAVISION MANUAL DIFF)2023-05-02 08:01:09 Test Item Value Reference Range Interpretation Comments NEUTROPHILS - REL 86 % (CELLAVISION)(BEAKER) (test code = 2816) LYMPHOCYTES - REL 7 % (CELLAVISION)(BEAKER) (test code = 2817) MONOCYTES - REL 3 % (CELLAVISION)(BEAKER) (test code = 2818) EOSINOPHILS - REL 2 % (CELLAVISION)(BEAKER) (test code = 2819) BANDS - REL (CELLAVISION)(BEAKER) 2 % 0-10 (test code = 2826) NEUTROPHILS - ABS 24.17 K/ul 1.78-5.38 H (CELLAVISION)(BEAKER) (test code = 2830) LYMPHOCYTES - ABS 1.97 K/ul 1.32-3.57 (CELLAVISION)(BEAKER) (test code = 2831) MONOCYTES - ABS 0.84 K/uL 0.30-0.82 H (CELLAVISION)(BEAKER) (test code = 2832) EOSINOPHILS - ABS 0.56 K/uL 0.04-0.54 H (CELLAVISION)(BEAKER) (test code = 2834) BANDS - ABS (CELLAVISION)(BEAKER) 0.56 K/uL 0.00-0.80 (test code = 2840) TOTAL COUNTED (BEAKER) (test code 100 = 1351) WBC MORPHOLOGY (BEAKER) (test code Normal = 487) PLT MORPHOLOGY (BEAKER) (test code Normal = 486) ANISOCYTOSIS (BEAKER) (test code = 1+ few 961) ARTIFACT (CELLAVISION)(BEAKER) Present (test code = 3432) PLATELET CONCENTRATION Adequate (CELLAVISION)(BEAKER) (test code = 3438) Lending Consultant ID - aditya willettAdeelderic comments: Slide comments:CBC W/PLT COUNT & AUTO [id number] 08:01:08 Test Item Value Reference Range Interpretation Comments WHITE BLOOD CELL COUNT (BEAKER) 28.1 K/ L 3.5-10.5 H (test code = 775) RED BLOOD CELL COUNT (BEAKER) 2.88 M/ L 4.63-6.08 L (test code = 761) HEMOGLOBIN (BEAKER) (test code = 8.7 GM/DL 13.7-17.5 L 410) HEMATOCRIT (BEAKER) (test code = 28.3 % 40.1-51.0 L 411) MEAN CORPUSCULAR VOLUME (BEAKER) 98 fL 79-92 H (test code = 753) MEAN CORPUSCULAR HEMOGLOBIN 30.2 pg 25.7-32.2 (BEAKER) (test code = 751) MEAN CORPUSCULAR HEMOGLOBIN CONC 30.7 GM/DL 32.3-36.5 L (BEAKER) (test code = 752) RED CELL DISTRIBUTION WIDTH 18.2 % 11.6-14.4 H (BEAKER) (test code = 412) PLATELET COUNT (BEAKER) (test 440 K/CU MM 150-450 code = 756) MEAN PLATELET VOLUME (BEAKER) 9.6 fL 9.4-12.4 (test code = 754) NUCLEATED RED BLOOD CELLS 0 /100 WBC 0-0 (BEAKER) (test code = 413) BASIC METABOLIC [id number] 06:03:06 Test Item Value Reference Range Interpretation Comments SODIUM (BEAKER) 137 meq/L 136-145 (test code = 381) POTASSIUM 4.6 meq/L 3.5-5.1 Specimen slight ly (BEAKER) (test hemolyzed code = 379) CHLORIDE (BEAKER) 100 meq/L 98-107 (test code = 382) CO2 (BEAKER) 26 meq/L 22-29 (test code = 355) BLOOD UREA 11 mg/dL 7-21 NITROGEN (BEAKER) (test code = 354) CREATININE 0.65 mg/dL 0.57-1.25 Specimen slight ly (BEAKER) (test hemolyzed code = 358) GLUCOSE RANDOM 90 mg/dL 70-105 (BEAKER) (test code = 652) CALCIUM (BEAKER) 8.5 mg/dL 8.4-10.2 (test code = 697) EGFR (BEAKER) 102 Interpretatio n of eGFR (test code = mL/min/1.73 values Stage De scription 1092) sq m Result G1 Paras l or high >=90 G2 Mildly decreased 60-89 G3a Mildl y to moderately 45-5 9 G3b Moderately to s everely 30-44 G4 Severl y decreased 15-29 G5 Kidney failure <15Reported eGF R is based on the CKD-EPI 2020 equation that d oes not use a race coefficientEsti mated GFR is not as accur ate as Creatinine Laurel benton in predicting glom erular filtration rate . Estimated GFR is not appl icable for dialysis patien ts Lending Consultant ID - ADMINHEPATIC FUNCTION [id number] 06:03:06 Test Item Value Reference Range Interpretation Comments TOTAL PROTEIN (BEAKER) 5.5 gm/dL 6.0-8.3 L Speci men slightly (test code = 770) hemolyzed ALBUMIN (BEAKER) (test 2.9 g/dL 3.5-5.0 L Speci men slightly code = 1145) hemolyzed BILIRUBIN TOTAL 0.4 mg/dL 0.2-1.2 Specimen sli ghtly (BEAKER) (test code = hemoly zed 377) BILIRUBIN DIRECT 0.2 mg/dL 0.1-0.5 Specimen sl ightly (BEAKER) (test code = hemoly zed 706) ALKALINE PHOSPHATASE 111 U/L 40-150 (BEAKER) (test code = 346) AST (SGOT) (BEAKER) 15 U/L 5-34 Specimen slightly (test code = 353) hemolyzed ALT (SGPT) (BEAKER) 17 U/L 6-55 Specimen slightly (test code = 347) hemolyzed Lending Consultant ID - [id number] 06:03:05 Test Item Value Reference Range Interpretation Comments PHOSPHORUS (BEAKER) 3.8 mg/dL 2.3-4.7 Specimen slightly (test code = 604) hemolyzed Lending Consultant ID - [id number] 06:03:04 Test Item Value Reference Range Interpretation Comments MAGNESIUM (BEAKER) 1.8 mg/dL 1.6-2.6 Specimen slightly (test code = 627) hemolyzed Lending Consultant ID - ADMINPOCT-GLUCOSE [id number] 05:29:39 Test Item Value Reference Range Interpretation Comments POC-GLUCOSE METER 93 mg/dL 70-110 : TESTED A T [facility] 6720 (BEAKER) (test code = [facility], 153) [id number]: Lending Consultant/Techni bang ID = [id number] for JAVAD CHAMBERLAIN CALCIUM, [id number] 05:04:48 Test Item Value Reference Range Interpretation Comments CALCIUM IONIZED (BEAKER) (test 1.14 mmol/L 1.12-1.27 code = 698) PH, BLOOD (BEAKER) (test code = 7.44 1810) POCT-GLUCOSE [id number] 23:28:16 Test Item Value Reference Range Interpretation Comments POC-GLUCOSE METER 130 mg/dL 70-110 H : TESTED A T [facility] (BEAKER) (test code = [facility], 1538) 73425: Lending Consultant/Techni bang ID = [id number] for JAVAD HODGE POCT-GLUCOSE [id number] 17:50:11 Test Item Value Reference Range Interpretation Comments POC-GLUCOSE METER 105 mg/dL 70-110 : TESTED A T [facility] (BEAKER) (test code = [facility], 1538) [id number]: Lending Consultant/Techni bang ID = [id number] for Ca luis, [place] POCT-GLUCOSE [id number] 17:50:09 Test Item Value Reference Range Interpretation Comments POC-GLUCOSE METER 99 mg/dL 70-110 : TESTED A T [facility] (BEAKER) (test code = [facility], 1538) 06688: Lending Consultant/Techni bang ID = [id number] for [place] Capps POCT-GLUCOSE [id number] 17:50:04 Test Item Value Reference Range Interpretation Comments POC-GLUCOSE METER 68 mg/dL 70-110 L : TESTED A T [facility] (BEAKER) (test code = [facility] Mas[facility], 1538) [id number]: Lending Consultant/Techni bang ID = [id number] for [place] Capps CORTISOL,60 [id number] 14:58:24 Test Item Value Reference Range Interpretation Comments CORTISOL BASELINE NETWORKED < mcg/dL (BEAKER) (test code = 2307) CORTISOL 30 MINUTE NETWORKED 1.1 mcg/dL (BEAKER) (test code = 2308) CORTISOL, 60 MINUTE (BEAKER) (test 3.5 ug/dL code = 1805) ACTH STIMULATION TEST INTERPRETATION GUIDELINES(Synonyms: Cortrosyn Test, Cosyntropin or Corticotropin Stimulation Test)Adenocorticotropic hormone (ACTH)is a tropic hormone, made in the pituitary gland, which travels trhough the bloodstream and stimulates the cortex of the adrenal glands to release co rtisol. Cortisol is a primary hormone, which aids the body's metabolism of fats, carbohydrates, and protein as well as sodium and potassium regulation.ACTH Stimulation Test: Exogenous administration ofbiologically active ACTH stimulates the secretion of cortisol from the adrenal gland. This test is used to evaluate adrenal function by measuring cortisol levels at baseline and at 30 and 60 minutes after the administration of 250 micrograms of cosyntropin (Cortrosyn). Patients who have received exogenous corticosteroids immediately prior to performing the ACTH Stimulation Test will often have elevated baseline cortisol levels, which may lead to erroneous interpretation of test results. The notable exception is with dexamethasone.Normal Response: An increase in cortisol after stimulation by ACTH isnormal. Post-stimulation cortisol concentration should be greater than 20 mcg/dL or the rate of risefrom baseline cortisol should be greater than or equal to 9 mcg/dL.Patients with sepsis or septic shock: According to a study by Noel et al (AIYANA 2000,283(8):1038-45), the ACTH Stimulation Test provides important prognostic information. This study defined 3 groups of patients with sepsis or septic shock: 1. Good Survival: Low basal cortisol (<or=34 mcg/dL) and high ACTH response (>9mcg/dL) 2.Intermediate Survival: Low basal cortisol (<34 mcg/dL) and low response to ACTH (<or=9 mcg/dL)OR High basal cortisol (>34 mcg/dL) or high ACTH response (>9 mcg/dL) 3. Poor Survival: High basal cortisol (>34 mcg/dL) and low ACTH response (<or=9 mcg/dL).Treatment of patients with relative adrenal dysfunction may be indicated based on test results and the clinical condition of the patient. Additional information, including treatment recommendations, is available in critically ill patients, approved by the Pharmacy, Nutrition, and Therapeutics Committee on 06/08/2004 and available through the Pharmacy Policy and Procedure Section on The Source.Lending Consultant ID - ADMINCORTISOL,60 [id number] 14:11:56 Test Item Value Reference Range Interpretation Comments CORTISOL BASELINE NETWORKED < mcg/dL (BEAKER) (test code = 2307) CORTISOL 30 MINUTE NETWORKED 1.1 mcg/dL (BEAKER) (test code = 2308) CORTISOL, 60 MINUTE (BEAKER) (test 8.8 ug/dL code = 1805) ACTH STIMULATION TEST INTERPRETATION GUIDELINES(Synonyms: Cortrosyn Test, Cosyntropin or Corticotropin Stimulation Test)Adenocorticotropic hormone (ACTH)is a tropic hormone, made in the pituitary gland, which travels trhough the bloodstream and stimulates the cortex of the adrenal glands to release co rtisol. Cortisol is a primary hormone, which aids the body's metabolism of fats, carbohydrates, and protein as well as sodium and potassium regulation.ACTH Stimulation Test: Exogenous administration ofbiologically active ACTH stimulates the secretion of cortisol from the adrenal gland. This test is used to evaluate adrenal function by measuring cortisol levels at baseline and at 30 and 60 minutes after the administration of 250 micrograms of cosyntropin (Cortrosyn). Patients who have received exogenous corticosteroids immediately prior to performing the ACTH Stimulation Test will often have elevated baseline cortisol levels, which may lead to erroneous interpretation of test results. The notable exception is with dexamethasone.Normal Response: An increase in cortisol after stimulation by ACTH isnormal. Post-stimulation cortisol concentration should be greater than 20 mcg/dL or the rate of risefrom baseline cortisol should be greater than or equal to 9 mcg/dL.Patients with sepsis or septic shock: According to a study by Noel et al (AIYANA 2000,283(8):9556-45), the ACTH Stimulation Test provides important prognostic information. This study defined 3 groups of patients with sepsis or septic shock: 1. Good Survival: Low basal cortisol (<or=34 mcg/dL) and high ACTH response (>9mcg/dL) 2.Intermediate Survival: Low basal cortisol (<34 mcg/dL) and low response to ACTH (<or=9 mcg/dL)OR High basal cortisol (>34 mcg/dL) or high ACTH response (>9 mcg/dL) 3. Poor Survival: High basal cortisol (>34 mcg/dL) and low ACTH response (<or=9 mcg/dL).Treatment of patients with relative adrenal dysfunction may be indicated based on test results and the clinical condition of the patient. Additional information, including treatment recommendations, is available in critically ill patients, approved by the Pharmacy, Nutrition, and Therapeutics Committee on 06/08/2004 and available through the Pharmacy Policy and Procedure Section on The Source.Lending Consultant ID - ADMINCORTISOL,BASELINE 2023-05-01 13:16:44 Test Item Value Reference Range Interpretation Comments CORTISOL, BASELINE (BEAKER) (test < ug/dL code = 1803) ACTH STIMULATION TEST INTERPRETATION GUIDELINES(Synonyms: Cortrosyn Test, Cosyntropin or Corticotropin Stimulation Test)Adenocorticotropic hormone (ACTH)is a tropic hormone, made in the pituitary gland, which travels trhough the bloodstream and stimulates the cortex of the adrenal glands to release co rtisol. Cortisol is a primary hormone, which aids the body's metabolism of fats, carbohydrates, and protein as well as sodium and potassium regulation.ACTH Stimulation Test: Exogenous administration ofbiologically active ACTH stimulates the secretion of cortisol from the adrenal gland. This test is used to evaluate adrenal function by measuring cortisol levels at baseline and at 30 and 60 minutes after the administration of 250 micrograms of cosyntropin (Cortrosyn). Patients who have received exogenous corticosteroids immediately prior to performing the ACTH Stimulation Test will often have elevated baseline cortisol levels, which may lead to erroneous interpretation of test results. The notable exception is with dexamethasone.Normal Response: An increase in cortisol after stimulation by ACTH isnormal. Post-stimulation cortisol concentration should be greater than 20 mcg/dL or the rate of risefrom baseline cortisol should be greater than or equal to 9 mcg/dL.Patients with sepsis or septic shock: According to a study by Noel et al (AIYANA 2000,283(8):1038-45), the ACTH Stimulation Test provides important prognostic information. This study defined 3 groups of patients with sepsis or septic shock: 1. Good Survival: Low basal cortisol (<or=34 mcg/dL) and high ACTH response (>9mcg/dL) 2.Intermediate Survival: Low basal cortisol (<34 mcg/dL) and low response to ACTH (<or=9 mcg/dL) OR High basal cortisol (>34 mcg/dL) or high ACTH response (>9 mcg/dL) 3. Poor Survival: High basal cortisol (>34 mcg/dL) and low ACTH response (<or=9 mcg/dL).Treatment of patients with relative adrenal dysfunction may be indicated based on test results and the clinical condition of the patient. Additional information, including treatment recommendations, is available in critically ill patients, approved by the Pharmacy, Nutrition, and Therapeutics Committee on 06/08/2004 and available through the Pharmacy Policy and Procedure Section on The Source.Lending Consultant ID - ADMINCORTISOL,30 [id number] 09:05:10 Test Item Value Reference Range Interpretation Comments CORTISOL BASELINE NETWORKED 1.3 mcg/dL (BEAKER) (test code = 2307) CORTISOL, 30 MINUTE (BEAKER) (test 1.1 ug/dL code = 1804) ACTH STIMULATION TEST INTERPRETATION GUIDELINES(Synonyms: Cortrosyn Test, Cosyntropin or Corticotropin Stimulation Test)Adenocorticotropic hormone (ACTH)is a tropic hormone, made in the pituitary gland, which travels trhough the bloodstream and stimulates the cortex of the adrenal glands to release co rtisol. Cortisol is a primary hormone, which aids the body's metabolism of fats, carbohydrates, and protein as well as sodium and potassium regulation.ACTH Stimulation Test: Exogenous administration ofbiologically active ACTH stimulates the secretion of cortisol from the adrenal gland. This test is used to evaluate adrenal function by measuring cortisol levels at baseline and at 30 and 60 minutes after the administration of 250 micrograms of cosyntropin (Cortrosyn). Patients who have received exogenous corticosteroids immediately prior to performing the ACTH Stimulation Test will often have elevated baseline cortisol levels, which may lead to erroneous interpretation of test results. The notable exception is with dexamethasone.Normal Response: An increase in cortisol after stimulation by ACTH isnormal. Post-stimulation cortisol concentration should be greater than 20 mcg/dL or the rate of risefrom baseline cortisol should be greater than or equal to 9 mcg/dL.Patients with sepsis or septic shock: According to a study by Noel et al (AIYANA 2000,283(8):1038-45), the ACTH Stimulation Test provides important prognostic information. This study defined 3 groups of patients with sepsis or septic shock: 1. Good Survival: Low basal cortisol (<or=34 mcg/dL) and high ACTH response (>9mcg/dL) 2.Intermediate Survival: Low basal cortisol (<34 mcg/dL) and low response to ACTH (<or=9 mcg/dL)OR High basal cortisol (>34 mcg/dL) or high ACTH response (>9 mcg/dL) 3. Poor Survival: High basal cortisol (>34 mcg/dL) and low ACTH response (<or=9 mcg/dL).Treatment of patients with relative adrenal dysfunction may be indicated based on test results and the clinical condition of the patient. Additional information, including treatment recommendations, is available in critically ill patients, approved by the Pharmacy, Nutrition, and Therapeutics Committee on 06/08/2004 and available through the Pharmacy Policy and Procedure Section on The Source.Lending Consultant ID - ADMINTISSUE [id number] 08:51:53Surgical Pathology Report Case: [id number] Authorizing Provider: Azeb Forde, Collected:04/25/2023 04:04 PM Ordering Location: [address] Received: 04/25/2023 05:39 PM Service Pathologist: Padmini Guidry MD Specimen: Gallbladder GALLBLADDER, CHOLECYSTECTOMY:- ACUTE CHOLECYSTITIS Signing Pathologist Direct Phone Line: [phone] signed by Padmini Guidry MD on 05/01/2023 at 8:51 [id number] male with cholecystitis. A. GallbladderReceived fresh, labeled with the patient's name, MRN and "gallbladder" and consists of a disrupted gallbladder (7.2 x 4.0 x 1.5 cm) which has a clipped cystic duct. The serosa is piedra-pink and focally hemorrhagic. The gallbladder is opened to reveal a minimal amount of hemorrhagic bile and no stones are identified. The mucosa is piedra and velvety. The wall thickness 0.2 cm. No gross lesions are identified. Technical Agronomist sections are submitted.Section codeA1: Cystic duct margin, en face and gallbladder wallH minda SEGOVIA (ASCP)Performed. [facility], Department of Pathology, [address] [place] [id number], [facility], [facility] of [facility], [address] [place] [address], [facility], [facility] of [facility], [address] [place] [address], BWOLD METABOLIC [id number] 08:44:17 Test Item Value Reference Range Interpretation Comments SODIUM (BEAKER) 142 meq/L 136-145 (test code = 381) POTASSIUM 3.6 meq/L 3.5-5.1 (BEAKER) (test code = 379) CHLORIDE (BEAKER) 106 meq/L 98-107 (test code = 382) CO2 (BEAKER) 28 meq/L 22-29 (test code = 355) BLOOD UREA 10 mg/dL 7-21 NITROGEN (BEAKER) (test code = 354) CREATININE 0.54 mg/dL 0.57-1.25 L (BEAKER) (test code = 358) GLUCOSE RANDOM 76 mg/dL 70-105 (BEAKER) (test code = 652) CALCIUM (BEAKER) 7.8 mg/dL 8.4-10.2 L (test code = 697) EGFR (BEAKER) 106 Interpretatio n of eGFR (test code = mL/min/1.73 values Stage De scription 1092) sq m Result G1 Paras l or high >=90 G2 Mildly decreased 60-89 G3a Mildl y to moderately 45-5 9 G3b Moderately to s everely 30-44 G4 Sever ly decreased 15-29 G5 Kidney failure <15Repo rted eGFR is based on the CKD-EPI 2020 equation t hat does not use a race coefficientEsti mated GFR is not as accur ate as Creatinine Laurel bhardwaj in predicting glom erular filtration rate . Estimated GFR is not appl icable for dialysis patien ts Lending Consultant ID - [id number] 08:30:09 Test Item Value Reference Range Interpretation Comments PHOSPHORUS (BEAKER) (test code = 3.6 mg/dL 2.3-4.7 604) Lending Consultant ID - ADMINHEPATIC FUNCTION [id number] 08:30:09 Test Item Value Reference Range Interpretation Comments TOTAL PROTEIN (BEAKER) (test code = 4.8 gm/dL 6.0-8.3 L 770) ALBUMIN (BEAKER) (test code = 1145) 2.5 g/dL 3.5-5.0 L BILIRUBIN TOTAL (BEAKER) (test code 0.3 mg/dL 0.2-1.2 = 377) BILIRUBIN DIRECT (BEAKER) (test 0.2 mg/dL 0.1-0.5 code = 706) ALKALINE PHOSPHATASE (BEAKER) (test 105 U/L 40-150 code = 346) AST (SGOT) (BEAKER) (test code = 13 U/L 5-34 353) ALT (SGPT) (BEAKER) (test code = 19 U/L 6-55 347) Lending Consultant ID - [id number] 08:30:08 Test Item Value Reference Range Interpretation Comments MAGNESIUM (BEAKER) (test code = 1.7 mg/dL 1.6-2.6 627) Lending Consultant ID - ADMINCORTISOL,[id number] 08:01:43 Test Item Value Reference Range Interpretation Comments CORTISOL, BASELINE (BEAKER) (test 1.3 ug/dL code = 1803) ACTH STIMULATION TEST INTERPRETATION GUIDELINES(Synonyms: Cortrosyn Test, Cosyntropin or Corticotropin Stimulation Test)Adenocorticotropic hormone (ACTH)is a tropic hormone, made in the pituitary gland, which travels trhough the bloodstream and stimulates the cortex of the adrenal glands to release co rtisol. Cortisol is a primary hormone, which aids the body's metabolism of fats, carbohydrates, and protein as well as sodium and potassium regulation.ACTH Stimulation Test: Exogenous administration ofbiologically active ACTH stimulates the secretion of cortisol from the adrenal gland. This test is used to evaluate adrenal function by measuring cortisol levels at baseline and at 30 and 60 minutes after the administration of 250 micrograms of cosyntropin (Cortrosyn). Patients who have received exogenous corticosteroids immediately prior to performing the ACTH Stimulation Test will often have elevated baseline cortisol levels, which may lead to erroneous interpretation of test results. The notable exception is with dexamethasone.Normal Response: An increase in cortisol after stimulation by ACTH isnormal. Post-stimulation cortisol concentration should be greater than 20 mcg/dL or the rate of risefrom baseline cortisol should be greater than or equal to 9 mcg/dL.Patients with sepsis or septic shock: According to a study by Noel et al (AIYANA 2000,283(8):1038-45), the ACTH Stimulation Test provides important prognostic information. This study defined 3 groups of patients with sepsis or septic shock: 1. Good Survival: Low basal cortisol (<or=34 mcg/dL) and high ACTH response (>9mcg/dL) 2.Intermediate Survival: Low basal cortisol (<34 mcg/dL) and low response to ACTH (<or=9 mcg/dL)OR High basal cortisol (>34 mcg/dL) or high ACTH response (>9 mcg/dL) 3. Poor Survival: High basal cortisol (>34 mcg/dL) and low ACTH response (<or=9 mcg/dL).Treatment of patients with relative adrenal dysfunction may be indicated based on test results and the clinical condition of the patient. Additional information, including treatment recommendations, is available in critically ill patients, approved by the Pharmacy, Nutrition, and Therapeutics Committee on 06/08/2004 and available through the Pharmacy Policy and Procedure Section on The Source.Lending Consultant ID - ADMINCBC W/PLT COUNT & AUTO [id number] 07:25:19 Test Item Value Reference Range Interpretation Comments WHITE BLOOD CELL COUNT 10.0 K/ L 3.5-10.5 (BEAKER) (test code = 775) RED BLOOD CELL COUNT 2.88 M/ L 4.63-6.08 L (BEAKER) (test code = 761) HEMOGLOBIN (BEAKER) 8.8 GM/DL 13.7-17.5 L (test code = 410) HEMATOCRIT (BEAKER) 28.8 % 40.1-51.0 L (test code = 411) MEAN CORPUSCULAR 100 fL 79-92 H Discordant results VOLUME (BEAKER) (test compar ed to code = 753) previous, clini tracy correlation required. MEAN CORPUSCULAR 30.6 pg 25.7-32.2 HEMOGLOBIN (BEAKER) (test code = 751) MEAN CORPUSCULAR 30.6 GM/DL 32.3-36.5 L HEMOGLOBIN CONC (BEAKER) (test code = 752) RED CELL DISTRIBUTION 17.6 % 11.6-14.4 H WIDTH (BEAKER) (test code = 412) PLATELET COUNT 457 K/CU MM 150-450 H (BEAKER) (test code = 756) MEAN PLATELET VOLUME 9.1 fL 9.4-12.4 L (BEAKER) (test code = 754) NUCLEATED RED BLOOD 0 /100 WBC 0-0 CELLS (BEAKER) (test code = 413) NEUTROPHILS RELATIVE 59 % PERCENT (BEAKER) (test code = 429) LYMPHOCYTES RELATIVE 27 % PERCENT (BEAKER) (test code = 430) MONOCYTES RELATIVE 7 % PERCENT (BEAKER) (test code = 431) EOSINOPHILS RELATIVE 6 % PERCENT (BEAKER) (test code = 432) BASOPHILS RELATIVE 0 % PERCENT (BEAKER) (test code = 437) NEUTROPHILS ABSOLUTE 5.83 K/ L 1.78-5.38 H COUNT (BEAKER) (test code = 670) LYMPHOCYTES ABSOLUTE 2.70 K/ L 1.32-3.57 COUNT (BEAKER) (test code = 414) MONOCYTES ABSOLUTE 0.68 K/ L 0.30-0.82 COUNT (BEAKER) (test code = 415) EOSINOPHILS ABSOLUTE 0.62 K/ L 0.04-0.54 H COUNT (BEAKER) (test code = 416) BASOPHILS ABSOLUTE 0.02 K/ L 0.01-0.08 COUNT (BEAKER) (test code = 417) IMMATURE 1.20 % 0.00-1.00 H GRANULOCYTES-RELATIVE PERCENT (BEAKER) (test code = 2801) CALCIUM, [id number] 07:08:35 Test Item Value Reference Range Interpretation Comments CALCIUM IONIZED (BEAKER) (test 1.12 mmol/L 1.12-1.27 code = 698) PH, BLOOD (BEAKER) (test code = 7.40 1810) POCT-GLUCOSE [id number] 17:49:14 Test Item Value Reference Range Interpretation Comments POC-GLUCOSE METER 94 mg/dL 70-110 : TESTED A T [facility] (BEAKER) (test code = [facility], 1538) [id number]: Lending Consultant/Techni bang ID = [id number] for SHANTI LEON POCT-GLUCOSE [id number] 12:17:05 Test Item Value Reference Range Interpretation Comments POC-GLUCOSE METER 87 mg/dL 70-110 : TESTED A T [facility] (BEAKER) (test code = [facility], 1538) 16345: Lending Consultant/Techni bang ID = [id number] for SHANTI LEON ANAEROBIC [id number] 11:05:32 Test Item Value Reference Range Interpretation Comments CULTURE (BEAKER) (test No anaerobes isolated code = 1095) POCT-GLUCOSE [id number] 09:29:33 Test Item Value Reference Range Interpretation Comments POC-GLUCOSE METER 73 mg/dL 70-110 : TESTED A T [facility]20 (BEAKER) (test code = [facility], 1538) 91806: Lending Consultant/Techni bang ID = [id number] for Padmini Riley HEPATIC FUNCTION [id number] 05:08:31 Test Item Value Reference Range Interpretation Comments TOTAL PROTEIN (BEAKER) 5.0 gm/dL 6.0-8.3 L Speci men slightly (test code = 770) hemolyzed ALBUMIN (BEAKER) (test 2.7 g/dL 3.5-5.0 L Speci men slightly code = 1145) hemolyzed BILIRUBIN TOTAL 0.3 mg/dL 0.2-1.2 Specimen sli ghtly (BEAKER) (test code = hemoly zed 377) BILIRUBIN DIRECT 0.2 mg/dL 0.1-0.5 Specimen sl ightly (BEAKER) (test code = hemoly zed 706) ALKALINE PHOSPHATASE 113 U/L 40-150 (BEAKER) (test code = 346) AST (SGOT) (BEAKER) 12 U/L 5-34 Specimen slightly (test code = 353) hemolyzed ALT (SGPT) (BEAKER) 24 U/L 6-55 Specimen slightly (test code = 347) hemolyzed Lending Consultant ID - ADMINOperator ID - ADMINBASIC METABOLIC [id number] 04:52:12 Test Item Value Reference Range Interpretation Comments SODIUM (BEAKER) 141 meq/L 136-145 (test code = 381) POTASSIUM 4.1 meq/L 3.5-5.1 Specimen slight ly (BEAKER) (test hemolyzed code = 379) CHLORIDE (BEAKER) 103 meq/L 98-107 (test code = 382) CO2 (BEAKER) 33 meq/L 22-29 H (test code = 355) BLOOD UREA 10 mg/dL 7-21 NITROGEN (BEAKER) (test code = 354) CREATININE 0.56 mg/dL 0.57-1.25 L Specimen slight ly (BEAKER) (test hemolyzed code = 358) GLUCOSE RANDOM 97 mg/dL 70-105 (BEAKER) (test code = 652) CALCIUM (BEAKER) 8.2 mg/dL 8.4-10.2 L (test code = 697) EGFR (BEAKER) 106 Interpretatio n of eGFR (test code = mL/min/1.73 values Stage De scription 1092) sq m Result G1 Paras l or high >=90 G2 Mildly decreased 60-89 G3a Mildl y to moderately 45-5 9 G3b Moderately to s everely 30-44 G4 Severl y decreased 15-29 G5 Kidney failure <15Reported eGF R is based on the CKD-EPI 2020 equation that d oes not use a race coefficientEsti mated GFR is not as accur ate as Creatinine Laurel benton in predicting glom erular filtration rate . Estimated GFR is not appl icable for dialysis patien ts Lending Consultant ID - ADMINCBC W/PLT COUNT & AUTO [id number] 04:52:11 Test Item Value Reference Range Interpretation Comments WHITE BLOOD CELL COUNT (BEAKER) 14.1 K/ L 3.5-10.5 H (test code = 775) RED BLOOD CELL COUNT (BEAKER) 2.70 M/ L 4.63-6.08 L (test code = 761) HEMOGLOBIN (BEAKER) (test code = 8.1 GM/DL 13.7-17.5 L 410) HEMATOCRIT (BEAKER) (test code = 25.9 % 40.1-51.0 L 411) MEAN CORPUSCULAR VOLUME (BEAKER) 96 fL 79-92 H (test code = 753) MEAN CORPUSCULAR HEMOGLOBIN 30.0 pg 25.7-32.2 (BEAKER) (test code = 751) MEAN CORPUSCULAR HEMOGLOBIN CONC 31.3 GM/DL 32.3-36.5 L (BEAKER) (test code = 752) RED CELL DISTRIBUTION WIDTH 17.1 % 11.6-14.4 H (BEAKER) (test code = 412) PLATELET COUNT (BEAKER) (test 432 K/CU MM 150-450 code = 756) MEAN PLATELET VOLUME (BEAKER) 9.2 fL 9.4-12.4 L (test code = 754) NUCLEATED RED BLOOD CELLS 0 /100 WBC 0-0 (BEAKER) (test code = 413) NEUTROPHILS RELATIVE PERCENT 72 % (BEAKER) (test code = 429) LYMPHOCYTES RELATIVE PERCENT 19 % (BEAKER) (test code = 430) MONOCYTES RELATIVE PERCENT 6 % (BEAKER) (test code = 431) EOSINOPHILS RELATIVE PERCENT 2 % (BEAKER) (test code = 432) BASOPHILS RELATIVE PERCENT 0 % (BEAKER) (test code = 437) NEUTROPHILS ABSOLUTE COUNT 10.11 K/ L 1.78-5.38 H (BEAKER) (test code = 670) LYMPHOCYTES ABSOLUTE COUNT 2.74 K/ L 1.32-3.57 (BEAKER) (test code = 414) MONOCYTES ABSOLUTE COUNT (BEAKER) 0.88 K/ L 0.30-0.82 H (test code = 415) EOSINOPHILS ABSOLUTE COUNT 0.29 K/ L 0.04-0.54 (BEAKER) (test code = 416) BASOPHILS ABSOLUTE COUNT (BEAKER) 0.02 K/ L 0.01-0.08 (test code = 417) IMMATURE GRANULOCYTES-RELATIVE 0.70 % 0.00-1.00 PERCENT (BEAKER) (test code = 2801) [id number] 04:52:10 Test Item Value Reference Range Interpretation Comments PHOSPHORUS (BEAKER) 3.5 mg/dL 2.3-4.7 Specimen slightly (test code = 604) hemolyzed Lending Consultant ID - [id number] 04:52:09 Test Item Value Reference Range Interpretation Comments MAGNESIUM (BEAKER) 1.7 mg/dL 1.6-2.6 Specimen slightly (test code = 627) hemolyzed Lending Consultant ID - ADMINCALCIUM, [id number] 04:49:28 Test Item Value Reference Range Interpretation Comments CALCIUM IONIZED (BEAKER) (test 1.14 mmol/L 1.12-1.27 code = 698) PH, BLOOD (BEAKER) (test code = 7.42 1810) POCT-GLUCOSE [id number] 22:46:12 Test Item Value Reference Range Interpretation Comments POC-GLUCOSE METER 112 mg/dL 70-110 H : TESTED A T [facility] 6720 (BEAKER) (test code = [facility], 1538) [address]: Lending Consultant/Techni bang ID = [id number] for CINDY Li BLOOD [id number] 18:00:41 Test Item Value Reference Range Interpretation Comments CULTURE (BEAKER) (test No growth in 5 days code = 1095) The specimen volume collected for this blood culture was below the optimum (10 mL per bottle or 20 mL total). Use of lower volumes may adversely affect recovery and/or detection times of some organisms.BLOOD [id number] 18:00:41 Test Item Value Reference Range Interpretation Comments CULTURE (BEAKER) (test No growth in 5 days code = 1095) The specimen volume collected for this blood culture was below the optimum (10 mL per bottle or 20 mL total). Use of lower volumes may adversely affect recovery and/or detection times of some organisms.POCT-GLUCOSE [id number] 17:57:37 Test Item Value Reference Range Interpretation Comments POC-GLUCOSE METER 102 mg/dL 70-110 : TESTED A T [facility] 6720 (BEAKER) (test code = [facility], 1538) 8[address]: Lending Consultant/Techni bang ID = [id number] for SHANTI BARRIOS SURGICALLY OBTAINED CULTURE + GRAM [id number] 11:55:58 Test Item Value Reference Range Interpretation Comments CULTURE (BEAKER) A <1+ Tati (test code = dubliniensis 1095) GRAM STAIN 1+ WBCs RESULT (BEAKER) (test code = 1123) GRAM STAIN <1+ gram variable RESULT (BEAKER) rods (test code = 466021) POCT-GLUCOSE [id number] 11:39:07 Test Item Value Reference Range Interpretation Comments POC-GLUCOSE METER 97 mg/dL 70-110 : TESTED A T [facility] 6720 (BEAKER) (test code = [facility], 1538) [address]: Lending Consultant/Techni bang ID = [id number] for Dial a, Maiah POCT-GLUCOSE [id number] 11:07:43 Test Item Value Reference Range Interpretation Comments POC-GLUCOSE METER 55 mg/dL 70-110 L : TESTED A T [facility] 6720 (BEAKER) (test code = [facility], 1538) [address]: Lending Consultant/Techni bang ID = [id number] for Dial a, Maiah POCT-GLUCOSE [id number] 09:59:42 Test Item Value Reference Range Interpretation Comments POC-GLUCOSE METER 53 mg/dL 70-110 L : Notified RN/MD: TESTED (BEAKER) (test code = AT [facility] 6720 [facility] 1538) [facility], 7[address]: Lending Consultant/Techni bang ID = [id number] for SHANTI CAZARES POCT-GLUCOSE [id number] 09:11:07 Test Item Value Reference Range Interpretation Comments POC-GLUCOSE METER 64 mg/dL 70-110 L : TESTED A T [facility] 6720 (BEAKER) (test code = [facility], 1538) [address]: Lending Consultant/Techni bang ID = [id number] for SHANTI CAZARES HEPATIC FUNCTION [id number] 05:22:06 Test Item Value Reference Range Interpretation Comments TOTAL PROTEIN (BEAKER) (test code = 5.4 gm/dL 6.0-8.3 L 770) ALBUMIN (BEAKER) (test code = 1145) 2.9 g/dL 3.5-5.0 L BILIRUBIN TOTAL (BEAKER) (test code 0.3 mg/dL 0.2-1.2 = 377) BILIRUBIN DIRECT (BEAKER) (test 0.2 mg/dL 0.1-0.5 code = 706) ALKALINE PHOSPHATASE (BEAKER) (test 153 U/L 40-150 H code = 346) AST (SGOT) (BEAKER) (test code = 10 U/L 5-34 353) ALT (SGPT) (BEAKER) (test code = 28 U/L 6-55 347) Lending Consultant ID - ADMINOperator ID - ADMINCALCIUM, [id number] 05:10:30 Test Item Value Reference Range Interpretation Comments CALCIUM IONIZED (BEAKER) (test 1.11 mmol/L 1.12-1.27 L code = 698) PH, BLOOD (BEAKER) (test code = 7.38 1810) [id number] 04:57:38 Test Item Value Reference Range Interpretation Comments PHOSPHORUS (BEAKER) (test code = 1.9 mg/dL 2.3-4.7 L 604) Lending Consultant ID - ADMINBASIC METABOLIC [id number] 04:57:37 Test Item Value Reference Range Interpretation Comments SODIUM (BEAKER) 142 meq/L 136-145 (test code = 381) POTASSIUM 3.3 meq/L 3.5-5.1 L (BEAKER) (test code = 379) CHLORIDE (BEAKER) 105 meq/L 98-107 (test code = 382) CO2 (BEAKER) 31 meq/L 22-29 H (test code = 355) BLOOD UREA 11 mg/dL 7-21 NITROGEN (BEAKER) (test code = 354) CREATININE 0.63 mg/dL 0.57-1.25 (BEAKER) (test code = 358) GLUCOSE RANDOM 98 mg/dL 70-105 (BEAKER) (test code = 652) CALCIUM (BEAKER) 8.5 mg/dL 8.4-10.2 (test code = 697) EGFR (BEAKER) 103 Interpretatio n of eGFR (test code = mL/min/1.73 values Stage De scription 1092) sq m Result G1 Paras l or high >=90 G2 Mildly decreased 60-89 G3a Mildl y to moderately 45-5 9 G3b Moderately to s everely 30-44 G4 Severl y decreased 15-29 G5 Kidney failure <15Reported eGF R is based on the CKD-EPI 2020 equation that d oes not use a race coefficientEsti mated GFR is not as accur ate as Creatinine Laurel benton in predicting glom erular filtration rate . Estimated GFR is not appl icable for dialysis patien ts Lending Consultant ID - [id number] 04:57:37 Test Item Value Reference Range Interpretation Comments MAGNESIUM (BEAKER) (test code = 1.7 mg/dL 1.6-2.6 627) Lending Consultant ID - ADMINCBC W/PLT COUNT & AUTO [id number] 04:52:07 Test Item Value Reference Range Interpretation Comments WHITE BLOOD CELL COUNT (BEAKER) 9.1 K/ L 3.5-10.5 (test code = 775) RED BLOOD CELL COUNT (BEAKER) 2.92 M/ L 4.63-6.08 L (test code = 761) HEMOGLOBIN (BEAKER) (test code = 9.1 GM/DL 13.7-17.5 L 410) HEMATOCRIT (BEAKER) (test code = 29.1 % 40.1-51.0 L 411) MEAN CORPUSCULAR VOLUME (BEAKER) 100 fL 79-92 H (test code = 753) MEAN CORPUSCULAR HEMOGLOBIN 31.2 pg 25.7-32.2 (BEAKER) (test code = 751) MEAN CORPUSCULAR HEMOGLOBIN CONC 31.3 GM/DL 32.3-36.5 L (BEAKER) (test code = 752) RED CELL DISTRIBUTION WIDTH 16.9 % 11.6-14.4 H (BEAKER) (test code = 412) PLATELET COUNT (BEAKER) (test 444 K/CU MM 150-450 code = 756) MEAN PLATELET VOLUME (BEAKER) 9.5 fL 9.4-12.4 (test code = 754) NUCLEATED RED BLOOD CELLS 0 /100 WBC 0-0 (BEAKER) (test code = 413) NEUTROPHILS RELATIVE PERCENT 63 % (BEAKER) (test code = 429) LYMPHOCYTES RELATIVE PERCENT 27 % (BEAKER) (test code = 430) MONOCYTES RELATIVE PERCENT 9 % (BEAKER) (test code = 431) EOSINOPHILS RELATIVE PERCENT 1 % (BEAKER) (test code = 432) BASOPHILS RELATIVE PERCENT 0 % (BEAKER) (test code = 437) NEUTROPHILS ABSOLUTE COUNT 5.69 K/ L 1.78-5.38 H (BEAKER) (test code = 670) LYMPHOCYTES ABSOLUTE COUNT 2.43 K/ L 1.32-3.57 (BEAKER) (test code = 414) MONOCYTES ABSOLUTE COUNT (BEAKER) 0.79 K/ L 0.30-0.82 (test code = 415) EOSINOPHILS ABSOLUTE COUNT 0.06 K/ L 0.04-0.54 (BEAKER) (test code = 416) BASOPHILS ABSOLUTE COUNT (BEAKER) 0.01 K/ L 0.01-0.08 (test code = 417) IMMATURE GRANULOCYTES-RELATIVE 0.90 % 0.00-1.00 PERCENT (BEAKER) (test code = 2801) POCT-GLUCOSE [id number] 17:18:53 Test Item Value Reference Range Interpretation Comments POC-GLUCOSE METER 127 mg/dL 70-110 H : TESTED A T [facility] 6720 (BEAKER) (test code = [facility], 1538) [address]: Lending Consultant/Techni bang ID = [id number] for [place] Krishnan ala POCT-GLUCOSE [id number] 13:05:07 Test Item Value Reference Range Interpretation Comments POC-GLUCOSE METER 111 mg/dL 70-110 H : TESTED A T [facility] 6720 (BEAKER) (test code = [facility] [employer] [facility], 1538) [address]: Lending Consultant/Techni bang ID = [id number] for [place] Krishnan ala XR CHEST 1 VIEW PORTABLE / [id number] 09:58:13 [facility] : 1955 Sex: MXR CHEST 1 VIEW PORTABLE / BEDSIDEINDICATION: cough, leukocytosisCOMPARISON: 04/19/2023TECHNIQUE: Portable frontal view(s) of the chest. FINDINGS: Support Lines and Devices: Stable. Lungs and pleura: Unchanged airspace and pleural opacities. Nopneumothorax identified.Heart and mediastinum: Stable contours. Stable surgical changes.Additional findings: None.IMPRESSION:1. No significant change from prior exam.2. Pulmonary emphysema with scarring in the right lung apex and leftlung base.Electronically Signed By: Tom Hurt 10:00 CDTWorkstation Name: [id number] 09:32:53 Test Item Value Reference Range Interpretation Comments POC-GLUCOSE METER 80 mg/dL 70-110 : TESTED A T [facility] 6720 (BEAKER) (test code = [facility] [place], 1538) [address]: Lending Consultant/Techni bang ID = [id number] for Dial [place] ramírez CBC W/PLT COUNT & AUTO [id number] 05:37:37 Test Item Value Reference Range Interpretation Comments WHITE BLOOD CELL COUNT (BEAKER) 17.0 K/ L 3.5-10.5 H (test code = 775) RED BLOOD CELL COUNT (BEAKER) 2.77 M/ L 4.63-6.08 L (test code = 761) HEMOGLOBIN (BEAKER) (test code = 8.3 GM/DL 13.7-17.5 L 410) HEMATOCRIT (BEAKER) (test code = 26.3 % 40.1-51.0 L 411) MEAN CORPUSCULAR VOLUME (BEAKER) 95 fL 79-92 H (test code = 753) MEAN CORPUSCULAR HEMOGLOBIN 30.0 pg 25.7-32.2 (BEAKER) (test code = 751) MEAN CORPUSCULAR HEMOGLOBIN CONC 31.6 GM/DL 32.3-36.5 L (BEAKER) (test code = 752) RED CELL DISTRIBUTION WIDTH 17.0 % 11.6-14.4 H (BEAKER) (test code = 412) PLATELET COUNT (BEAKER) (test 409 K/CU MM 150-450 code = 756) MEAN PLATELET VOLUME (BEAKER) 9.4 fL 9.4-12.4 (test code = 754) NUCLEATED RED BLOOD CELLS 0 /100 WBC 0-0 (BEAKER) (test code = 413) NEUTROPHILS RELATIVE PERCENT 84 % (BEAKER) (test code = 429) LYMPHOCYTES RELATIVE PERCENT 10 % (BEAKER) (test code = 430) MONOCYTES RELATIVE PERCENT 5 % (BEAKER) (test code = 431) EOSINOPHILS RELATIVE PERCENT 0 % (BEAKER) (test code = 432) BASOPHILS RELATIVE PERCENT 0 % (BEAKER) (test code = 437) NEUTROPHILS ABSOLUTE COUNT 14.23 K/ L 1.78-5.38 H (BEAKER) (test code = 670) LYMPHOCYTES ABSOLUTE COUNT 1.71 K/ L 1.32-3.57 (BEAKER) (test code = 414) MONOCYTES ABSOLUTE COUNT (BEAKER) 0.91 K/ L 0.30-0.82 H (test code = 415) EOSINOPHILS ABSOLUTE COUNT 0.00 K/ L 0.04-0.54 L (BEAKER) (test code = 416) BASOPHILS ABSOLUTE COUNT (BEAKER) 0.01 K/ L 0.01-0.08 (test code = 417) IMMATURE GRANULOCYTES-RELATIVE 0.60 % 0.00-1.00 PERCENT (BEAKER) (test code = 2801) HEPATIC FUNCTION [id number] 05:30:36 Test Item Value Reference Range Interpretation Comments TOTAL PROTEIN (BEAKER) (test code = 5.3 gm/dL 6.0-8.3 L 770) ALBUMIN (BEAKER) (test code = 1145) 2.8 g/dL 3.5-5.0 L BILIRUBIN TOTAL (BEAKER) (test code 0.4 mg/dL 0.2-1.2 = 377) BILIRUBIN DIRECT (BEAKER) (test 0.2 mg/dL 0.1-0.5 code = 706) ALKALINE PHOSPHATASE (BEAKER) (test 139 U/L 40-150 code = 346) AST (SGOT) (BEAKER) (test code = 10 U/L 5-34 353) ALT (SGPT) (BEAKER) (test code = 31 U/L 6-55 347) Lending Consultant ID - [id number] 05:30:35 Test Item Value Reference Range Interpretation Comments MAGNESIUM (BEAKER) (test code = 1.8 mg/dL 1.6-2.6 627) Lending Consultant ID - [id number] 05:30:35 Test Item Value Reference Range Interpretation Comments PHOSPHORUS (BEAKER) (test code = 1.7 mg/dL 2.3-4.7 L 604) Lending Consultant ID - NTPBASIC METABOLIC [id number] 05:30:34 Test Item Value Reference Range Interpretation Comments SODIUM (BEAKER) 139 meq/L 136-145 (test code = 381) POTASSIUM 3.9 meq/L 3.5-5.1 (BEAKER) (test code = 379) CHLORIDE (BEAKER) 102 meq/L 98-107 (test code = 382) CO2 (BEAKER) 29 meq/L 22-29 (test code = 355) BLOOD UREA 12 mg/dL 7-21 NITROGEN (BEAKER) (test code = 354) CREATININE 0.52 mg/dL 0.57-1.25 L (BEAKER) (test code = 358) GLUCOSE RANDOM 103 mg/dL 70-105 (BEAKER) (test code = 652) CALCIUM (BEAKER) 8.5 mg/dL 8.4-10.2 (test code = 697) EGFR (BEAKER) 107 Interpretatio n of eGFR (test code = mL/min/1.73 values Stage De scription 1092) sq m Result G1 Paras l or high >=90 G2 Mildly decreased 60-89 G3a Mildl y to moderately 45-5 9 G3b Moderately to s everely 30-44 G4 Severl y decreased 15-29 G5 Kidne y failure <15Reported eGF R is based on the CKD-EPI 2020 equation that d oes not use a race coefficientEsti mated GFR is not as accur ate as Creatinine Laurel bhardwaj in predicting glom erular filtration rate . Estimated GFR is not appl icable for dialysis patien ts Lending Consultant ID - NTPCALCIUM, [id number] 05:12:51 Test Item Value Reference Range Interpretation Comments CALCIUM IONIZED (BEAKER) (test 1.11 mmol/L 1.12-1.27 L code = 698) PH, BLOOD (BEAKER) (test code = 7.45 1810) POCT-GLUCOSE [id number] 22:29:57 Test Item Value Reference Range Interpretation Comments POC-GLUCOSE METER 145 mg/dL 70-110 H : [facility] (test code = [place], 1538) [address]: Lending Consultant/Techni bang ID = [id number] for TRACY SPEARIDAILEANA POCT-GLUCOSE [id number] 16:52:03 Test Item Value Reference Range Interpretation Comments POC-GLUCOSE METER 179 mg/dL 70-110 H : TESTED A T [facility] 6720 (BEAKER) (test code = [facility], 1538) 727[address]: Lending Consultant/Techni bang ID = [id number] for Padmini Guillen POCT-GLUCOSE [id number] 12:23:10 Test Item Value Reference Range Interpretation Comments POC-GLUCOSE METER 166 mg/dL 70-110 H : TESTED A T [facility] 6720 (BEAKER) (test code = [facility], 1538) [address]1988: Lending Consultant/Techni bang ID = [id number] for Padmini Guillen POCT-GLUCOSE [id number] 08:11:14 Test Item Value Reference Range Interpretation Comments POC-GLUCOSE METER 169 mg/dL 70-110 H : TESTED A T [facility] 6720 (BEAKER) (test code = [facility], 1538) [address]: Lending Consultant/Techni bang ID = [id number] for Padmini Guillen HEPATIC FUNCTION [id number] 06:30:42 Test Item Value Reference Range Interpretation Comments TOTAL PROTEIN (BEAKER) (test code = 5.4 gm/dL 6.0-8.3 L 770) ALBUMIN (BEAKER) (test code = 1145) 2.9 g/dL 3.5-5.0 L BILIRUBIN TOTAL (BEAKER) (test code 0.4 mg/dL 0.2-1.2 = 377) BILIRUBIN DIRECT (BEAKER) (test 0.2 mg/dL 0.1-0.5 code = 706) ALKALINE PHOSPHATASE (BEAKER) (test 153 U/L 40-150 H code = 346) AST (SGOT) (BEAKER) (test code = 22 U/L 5-34 353) ALT (SGPT) (BEAKER) (test code = 44 U/L 6-55 347) Lending Consultant ID - [id number] 06:30:41 Test Item Value Reference Range Interpretation Comments MAGNESIUM (BEAKER) (test code = 1.8 mg/dL 1.6-2.6 627) Lending Consultant ID - [id number] 06:30:41 Test Item Value Reference Range Interpretation Comments PHOSPHORUS (BEAKER) (test code = 1.8 mg/dL 2.3-4.7 L 604) Lending Consultant ID - ADMINBASIC METABOLIC [id number] 06:30:40 Test Item Value Reference Range Interpretation Comments SODIUM (BEAKER) 138 meq/L 136-145 (test code = 381) POTASSIUM 3.7 meq/L 3.5-5.1 (BEAKER) (test code = 379) CHLORIDE (BEAKER) 100 meq/L 98-107 (test code = 382) CO2 (BEAKER) 31 meq/L 22-29 H (test code = 355) BLOOD UREA 13 mg/dL 7-21 NITROGEN (BEAKER) (test code = 354) CREATININE 0.60 mg/dL 0.57-1.25 (BEAKER) (test code = 358) GLUCOSE RANDOM 154 mg/dL 70-105 H (BEAKER) (test code = 652) CALCIUM (BEAKER) 8.5 mg/dL 8.4-10.2 (test code = 697) EGFR (BEAKER) 104 Interpretatio n of eGFR (test code = mL/min/1.73 values Stage De scription 1092) sq m Result G1 Paras l or high >=90 G2 Mildly decreased 60-89 G3a Mildl y to moderately 45-5 9 G3b Moderately to s everely 30-44 G4 Severl y decreased 15-29 G5 Kidney failure <15Reported eGF R is based on the CKD-EPI 2020 equation that d oes not use a race coefficientEsti mated GFR is not as accur ate as Creatinine Laurel bhardwaj in predicting glom erular filtration rate . Estimated GFR is not appl icable for dialysis patien ts Lending Consultant ID - ADMINCBC W/PLT COUNT & AUTO [id number] 05:56:30 Test Item Value Reference Range Interpretation Comments WHITE BLOOD CELL COUNT (BEAKER) 11.9 K/ L 3.5-10.5 H (test code = 775) RED BLOOD CELL COUNT (BEAKER) 2.60 M/ L 4.63-6.08 L (test code = 761) HEMOGLOBIN (BEAKER) (test code = 7.8 GM/DL 13.7-17.5 L 410) HEMATOCRIT (BEAKER) (test code = 25.0 % 40.1-51.0 L 411) MEAN CORPUSCULAR VOLUME (BEAKER) 96 fL 79-92 H (test code = 753) MEAN CORPUSCULAR HEMOGLOBIN 30.0 pg 25.7-32.2 (BEAKER) (test code = 751) MEAN CORPUSCULAR HEMOGLOBIN CONC 31.2 GM/DL 32.3-36.5 L (BEAKER) (test code = 752) RED CELL DISTRIBUTION WIDTH 16.7 % 11.6-14.4 H (BEAKER) (test code = 412) PLATELET COUNT (BEAKER) (test 380 K/CU MM 150-450 code = 756) MEAN PLATELET VOLUME (BEAKER) 9.3 fL 9.4-12.4 L (test code = 754) NUCLEATED RED BLOOD CELLS 0 /100 WBC 0-0 (BEAKER) (test code = 413) NEUTROPHILS RELATIVE PERCENT 86 % (BEAKER) (test code = 429) LYMPHOCYTES RELATIVE PERCENT 9 % (BEAKER) (test code = 430) MONOCYTES RELATIVE PERCENT 4 % (BEAKER) (test code = 431) EOSINOPHILS RELATIVE PERCENT 0 % (BEAKER) (test code = 432) BASOPHILS RELATIVE PERCENT 0 % (BEAKER) (test code = 437) NEUTROPHILS ABSOLUTE COUNT 10.26 K/ L 1.78-5.38 H (BEAKER) (test code = 670) LYMPHOCYTES ABSOLUTE COUNT 1.06 K/ L 1.32-3.57 L (BEAKER) (test code = 414) MONOCYTES ABSOLUTE COUNT (BEAKER) 0.51 K/ L 0.30-0.82 (test code = 415) EOSINOPHILS ABSOLUTE COUNT 0.00 K/ L 0.04-0.54 L (BEAKER) (test code = 416) BASOPHILS ABSOLUTE COUNT (BEAKER) 0.01 K/ L 0.01-0.08 (test code = 417) IMMATURE GRANULOCYTES-RELATIVE 0.50 % 0.00-1.00 PERCENT (BEAKER) (test code = 2801) CALCIUM, [id number] 05:54:34 Test Item Value Reference Range Interpretation Comments CALCIUM IONIZED (BEAKER) (test 1.11 mmol/L 1.12-1.27 L code = 698) PH, BLOOD (BEAKER) (test code = 7.40 1810) POCT-GLUCOSE [id number] 22:36:12 Test Item Value Reference Range Interpretation Comments POC-GLUCOSE METER 144 mg/dL 70-110 H : TESTED A T [facility] 6720 (BEAKER) (test code [facility], = 1538) 84[address]: Lending Consultant/Techni bang ID = [id number] for Chris Youngblood POCT-GLUCOSE [id number] 17:22:22 Test Item Value Reference Range Interpretation Comments POC-GLUCOSE METER 138 mg/dL 70-110 H : TESTED A T [facility] 6720 (BEAKER) (test code = [facility], 1538) 37[address]: Lending Consultant/Techni bang ID = [id number] for Padmini Guillen POCT-GLUCOSE [id number] 12:33:31 Test Item Value Reference Range Interpretation Comments POC-GLUCOSE METER 126 mg/dL 70-110 H : TESTED A T [facility] 6720 (BEAKER) (test code = [facility], 1538) [address]: Lending Consultant/Techni bang ID = [id number] for Padmini Guillen POCT-GLUCOSE [id number] 08:27:52 Test Item Value Reference Range Interpretation Comments POC-GLUCOSE METER 125 mg/dL 70-110 H : TESTED A T [facility] 6720 (BEAKER) (test code = [facility], 1538) 35791: Lending Consultant/Techni bang ID = [id number] for Padmini Guillen [id number] 05:25:48 Test Item Value Reference Range Interpretation Comments PHOSPHORUS (BEAKER) (test code = 3.6 mg/dL 2.3-4.7 604) Lending Consultant ID - JAVAD WHEPATIC FUNCTION [id number] 05:25:48 Test Item Value Reference Range Interpretation Comments TOTAL PROTEIN (BEAKER) (test code = 6.2 gm/dL 6.0-8.3 770) ALBUMIN (BEAKER) (test code = 1145) 3.2 g/dL 3.5-5.0 L BILIRUBIN TOTAL (BEAKER) (test code 0.6 mg/dL 0.2-1.2 = 377) BILIRUBIN DIRECT (BEAKER) (test 0.4 mg/dL 0.1-0.5 code = 706) ALKALINE PHOSPHATASE (BEAKER) (test 216 U/L 40-150 H code = 346) AST (SGOT) (BEAKER) (test code = 34 U/L 5-34 353) ALT (SGPT) (BEAKER) (test code = 66 U/L 6-55 H 347) Lending Consultant ID Edenilson FARNSWORTH [id number] 05:25:47 Test Item Value Reference Range Interpretation Comments MAGNESIUM (BEAKER) (test code = 1.8 mg/dL 1.6-2.6 627) Lending Consultant ID Edenilson FARNSWORTH WBASIC METABOLIC [id number] 05:25:46 Test Item Value Reference Range Interpretation Comments SODIUM (BEAKER) 136 meq/L 136-145 (test code = 381) POTASSIUM 4.4 meq/L 3.5-5.1 (BEAKER) (test code = 379) CHLORIDE (BEAKER) 102 meq/L 98-107 (test code = 382) CO2 (BEAKER) 26 meq/L 22-29 (test code = 355) BLOOD UREA 9 mg/dL 7-21 NITROGEN (BEAKER) (test code = 354) CREATININE 0.63 mg/dL 0.57-1.25 (BEAKER) (test code = 358) GLUCOSE RANDOM 130 mg/dL 70-105 H (BEAKER) (test code = 652) CALCIUM (BEAKER) 8.9 mg/dL 8.4-10.2 (test code = 697) EGFR (BEAKER) 103 Interpretatio n of eGFR (test code = mL/min/1.73 values Stage De scription 1092) sq m Result G1 Paras l or high >=90 G2 Mildly decreased 60-89 G3a Mildl y to moderately 45-5 9 G3b Moderately to s everely 30-44 G4 Severl y decreased 15-29 G5 Kidney failure <15Reported eGF R is based on the CKD-EPI 2021 equation that d oes not use a race coefficientEsti mated GFR is not as accur ate as Creatinine Laurel bhardwaj in predicting glom erular filtration rate . Estimated GFR is not appl icable for dialysis patien ts Lending Consultant ID - JAVAD WCBC W/PLT COUNT & AUTO [id number] 05:10:29 Test Item Value Reference Range Interpretation Comments WHITE BLOOD CELL COUNT (BEAKER) 16.4 K/ L 3.5-10.5 H (test code = 775) RED BLOOD CELL COUNT (BEAKER) 3.07 M/ L 4.63-6.08 L (test code = 761) HEMOGLOBIN (BEAKER) (test code = 9.1 GM/DL 13.7-17.5 L 410) HEMATOCRIT (BEAKER) (test code = 28.8 % 40.1-51.0 L 411) MEAN CORPUSCULAR VOLUME (BEAKER) 94 fL 79-92 H (test code = 753) MEAN CORPUSCULAR HEMOGLOBIN 29.6 pg 25.7-32.2 (BEAKER) (test code = 751) MEAN CORPUSCULAR HEMOGLOBIN CONC 31.6 GM/DL 32.3-36.5 L (BEAKER) (test code = 752) RED CELL DISTRIBUTION WIDTH 16.7 % 11.6-14.4 H (BEAKER) (test code = 412) PLATELET COUNT (BEAKER) (test 431 K/CU MM 150-450 code = 756) MEAN PLATELET VOLUME (BEAKER) 9.3 fL 9.4-12.4 L (test code = 754) NUCLEATED RED BLOOD CELLS 0 /100 WBC 0-0 (BEAKER) (test code = 413) NEUTROPHILS RELATIVE PERCENT 87 % (BEAKER) (test code = 429) LYMPHOCYTES RELATIVE PERCENT 9 % (BEAKER) (test code = 430) MONOCYTES RELATIVE PERCENT 4 % (BEAKER) (test code = 431) EOSINOPHILS RELATIVE PERCENT 0 % (BEAKER) (test code = 432) BASOPHILS RELATIVE PERCENT 0 % (BEAKER) (test code = 437) NEUTROPHILS ABSOLUTE COUNT 14.33 K/ L 1.78-5.38 H (BEAKER) (test code = 670) LYMPHOCYTES ABSOLUTE COUNT 1.40 K/ L 1.32-3.57 (BEAKER) (test code = 414) MONOCYTES ABSOLUTE COUNT (BEAKER) 0.57 K/ L 0.30-0.82 (test code = 415) EOSINOPHILS ABSOLUTE COUNT 0.00 K/ L 0.04-0.54 L (BEAKER) (test code = 416) BASOPHILS ABSOLUTE COUNT (BEAKER) 0.01 K/ L 0.01-0.08 (test code = 417) IMMATURE GRANULOCYTES-RELATIVE 0.70 % 0.00-1.00 PERCENT (BEAKER) (test code = 2801) CALCIUM, [id number] 04:58:01 Test Item Value Reference Range Interpretation Comments CALCIUM IONIZED (BEAKER) (test 1.10 mmol/L 1.12-1.27 L code = 698) PH, BLOOD (BEAKER) (test code = 7.45 1810) POCT-GLUCOSE [id number] 23:22:55 Test Item Value Reference Range Interpretation Comments POC-GLUCOSE METER 159 mg/dL 70-110 H : TESTED A T [facility] 6720 (BEAKER) (test code = [facility], 1538) [address]: Lending Consultant/Techni bang ID = [id number] for CINDY Li POCT-GLUCOSE [id number] 12:33:58 Test Item Value Reference Range Interpretation Comments POC-GLUCOSE METER 98 mg/dL 70-110 : TESTED A T [facility] 67[facility] (test code = [facility], 1538) [address]: Lending Consultant/Techni bang ID = [id number] for Padmini Riley POCT-GLUCOSE [id number] 09:28:05 Test Item Value Reference Range Interpretation Comments POC-GLUCOSE METER 110 mg/dL 70-110 : TESTED A T [facility] 6720 (BEAKER) (test code = [facility], 153) [address]: Lending Consultant/Techni bang ID = [id number] for Padmini Guillen [id number] 07:28:20 Test Item Value Reference Range Interpretation Comments CORTISOL, TOTAL (BEAKER) (test code 2.6 ug/dL 3.7-19.4 L = 2755) Lending Consultant ID - ADMINHEPATIC FUNCTION [id number] 07:22:21 Test Item Value Reference Range Interpretation Comments TOTAL PROTEIN (BEAKER) (test code = 5.5 gm/dL 6.0-8.3 L 770) ALBUMIN (BEAKER) (test code = 1145) 2.9 g/dL 3.5-5.0 L BILIRUBIN TOTAL (BEAKER) (test code 0.7 mg/dL 0.2-1.2 = 377) BILIRUBIN DIRECT (BEAKER) (test 0.4 mg/dL 0.1-0.5 code = 706) ALKALINE PHOSPHATASE (BEAKER) (test 226 U/L 40-150 H code = 346) AST (SGOT) (BEAKER) (test code = 19 U/L 5-34 353) ALT (SGPT) (BEAKER) (test code = 60 U/L 6-55 H 347) Lending Consultant ID - ADMINBASIC METABOLIC [id number] 07:22:20 Test Item Value Reference Range Interpretation Comments SODIUM (BEAKER) 136 meq/L 136-145 (test code = 381) POTASSIUM 4.5 meq/L 3.5-5.1 (BEAKER) (test code = 379) CHLORIDE (BEAKER) 102 meq/L 98-107 (test code = 382) CO2 (BEAKER) 25 meq/L 22-29 (test code = 355) BLOOD UREA 5 mg/dL 7-21 L NITROGEN (BEAKER) (test code = 354) CREATININE 0.59 mg/dL 0.57-1.25 (BEAKER) (test code = 358) GLUCOSE RANDOM 71 mg/dL 70-105 (BEAKER) (test code = 652) CALCIUM (BEAKER) 8.6 mg/dL 8.4-10.2 (test code = 697) EGFR (BEAKER) 104 Interpretatio n of eGFR (test code = mL/min/1.73 values Stage De scription 1092) sq m Result G1 Paras l or high >=90 G2 Mildly decreased 60-89 G3a Mildl y to moderately 45-5 9 G3b Moderately to s everely 30-44 G4 Severl y decreased 15-29 G5 Kidney failure <15Reported eGF R is based on the CKD-EPI 2020 equation that d oes not use a race coefficientEsti mated GFR is not as accur ate as Creatinine Laurel benton in predicting glom erular filtration rate . Estimated GFR is not appl icable for dialysis patien ts Lending Consultant ID - [id number] 07:22:20 Test Item Value Reference Range Interpretation Comments MAGNESIUM (BEAKER) (test code = 1.7 mg/dL 1.6-2.6 627) Lending Consultant ID - [id number] 07:22:20 Test Item Value Reference Range Interpretation Comments PHOSPHORUS (BEAKER) (test code = 4.0 mg/dL 2.3-4.7 604) Lending Consultant ID - ADMINLACTIC ACID, [id number] 06:53:15 Test Item Value Reference Range Interpretation Comments LACTATE BLOOD VENOUS (2) (BEAKER) 0.61 mmol/L 0.50-2.00 (test code = 2872) Lending Consultant ID - ADMINCBC W/PLT COUNT & AUTO [id number] 06:50:20 Test Item Value Reference Range Interpretation Comments WHITE BLOOD CELL COUNT (BEAKER) 11.4 K/ L 3.5-10.5 H (test code = 775) RED BLOOD CELL COUNT (BEAKER) 2.80 M/ L 4.63-6.08 L (test code = 761) HEMOGLOBIN (BEAKER) (test code = 8.5 GM/DL 13.7-17.5 L 410) HEMATOCRIT (BEAKER) (test code = 27.3 % 40.1-51.0 L 411) MEAN CORPUSCULAR VOLUME (BEAKER) 98 fL 79-92 H (test code = 753) MEAN CORPUSCULAR HEMOGLOBIN 30.4 pg 25.7-32.2 (BEAKER) (test code = 751) MEAN CORPUSCULAR HEMOGLOBIN CONC 31.1 GM/DL 32.3-36.5 L (BEAKER) (test code = 752) RED CELL DISTRIBUTION WIDTH 16.7 % 11.6-14.4 H (BEAKER) (test code = 412) PLATELET COUNT (BEAKER) (test 381 K/CU MM 150-450 code = 756) MEAN PLATELET VOLUME (BEAKER) 9.8 fL 9.4-12.4 (test code = 754) NUCLEATED RED BLOOD CELLS 0 /100 WBC 0-0 (BEAKER) (test code = 413) NEUTROPHILS RELATIVE PERCENT 67 % (BEAKER) (test code = 429) LYMPHOCYTES RELATIVE PERCENT 19 % (BEAKER) (test code = 430) MONOCYTES RELATIVE PERCENT 6 % (BEAKER) (test code = 431) EOSINOPHILS RELATIVE PERCENT 7 % (BEAKER) (test code = 432) BASOPHILS RELATIVE PERCENT 0 % (BEAKER) (test code = 437) NEUTROPHILS ABSOLUTE COUNT 7.57 K/ L 1.78-5.38 H (BEAKER) (test code = 670) LYMPHOCYTES ABSOLUTE COUNT 2.15 K/ L 1.32-3.57 (BEAKER) (test code = 414) MONOCYTES ABSOLUTE COUNT (BEAKER) 0.69 K/ L 0.30-0.82 (test code = 415) EOSINOPHILS ABSOLUTE COUNT 0.83 K/ L 0.04-0.54 H (BEAKER) (test code = 416) BASOPHILS ABSOLUTE COUNT (BEAKER) 0.04 K/ L 0.01-0.08 (test code = 417) IMMATURE GRANULOCYTES-RELATIVE 0.60 % 0.00-1.00 PERCENT (BEAKER) (test code = 2801) CALCIUM, [id number] 06:41:48 Test Item Value Reference Range Interpretation Comments CALCIUM IONIZED (BEAKER) (test 1.13 mmol/L 1.12-1.27 code = 698) PH, BLOOD (BEAKER) (test code = 7.37 1810) CT ABDOMEN/PELVIS WITHOUT IV [id number] 02:43:26 [facility] : 1955 Sex: MEXAM: CT ABDOMEN/PELVIS WITHOUT IV CONTRASTCLINICAL INDICATION: s/p ERCP with inadvertent cannulation ofretroperitoneumTECHNIQUE: CT of the abdomen and pelvis was performed without theadministration ofintravenous contrast. Multiplanar reformatted imagesare provided for interpretation. Dose modulation, iterativereconstruction, and/or weight based adjustment of the mA/kV was utilizedto reduce the radiation dose to as low as reasonably achievable.COMPARISON: 04/20/2023FINDINGS: Lung bases: Unchanged small left and trace right pleural effusions.Emphysematous changes in the lung bases. Unchanged trace pericardialeffusion. Low attenuation of the blood pool with respect to themyocardium which can be seen in the setting of anemia.Organs: The solid organs are incompletely evaluated without intravenouscontrast. The unenhanced liver, spleen, pancreas, kidneys and adrenalglands are without acute findings.Bi liary: Persistent hyperdense material in the gallbladder, which isdistended. Interval placement of acommon bile duct stent with expectedpostprocedural pneumobilia. Unchanged metallic densities in the 2ndportion of the duodenum.GI tract: The stomach and duodenum are without acute findings. Nomechanical bowel obstruction. Normal appendix.Pelvis: The prostate and seminal vesicles are without acute findings.The urinary bladder is partially distended without contour abnormality.Peritoneum/retroperitoneum: No ascites or pneumoperitoneum. Noretroperitoneal gas.Bones/soft tissues: No acute bony or soft tissue abnormality. The bonesare demineralized.IMPRESSION:1. Interval placement of a common bile duct stent. Expectedpostoperative pneumobilia.2. No noncontrast evidence of postoperative complication. Specifically,there is no retroperitoneal fluid collection or gas.3. Unchanged gallbladder distention with intraluminal hyperdensematerial. Correlate with ERCP findings.4. Unchanged left greater than right pleural effusions.5. Low attenuation of the blood pool with respect to the myocardiumwhich can be seen in the setting of anemia. Correlate with laboratoryvalues.Electronically Signed By: Padmini Kraus04/25/2023 02:46 CDTWorkstation Name: [id number] 20:40:42 Test Item Value Reference Range Interpretation Comments POC-GLUCOSE METER 106 mg/dL 70-110 : TESTED A T [facility] 6720 ([facility]) (test code = [facility], 153) 47270: Lending Consultant/Techni bang ID = [id number] for CINDY Li POCT-GLUCOSE [id number] 17:52:06 Test Item Value Reference Range Interpretation Comments POC-GLUCOSE METER 112 mg/dL 70-110 H : TESTED A T [facility] 6720 ([facility]) (test code = [facility], 153) 21467: Lending Consultant/Techni bang ID = [id number] for BRAD CURTIS LACTIC ACID, [id number] 17:51:59 Test Item Value Reference Range Interpretation Comments LACTATE BLOOD VENOUS 1.15 mmol/L 0.50-2.00 Specime n slightly (2) ([facility]) (test hemolyzed code = 2872) Lending Consultant ID - ADMHIGH SENSITIVITY TROPONIN [id number] 15:25:19 Test Item Value Reference Range Interpretation Comments HIGH SENSITIVITY TROPONIN I (test < pg/ml <=35 code = 2095371) Lending Consultant ID - ADMThe SAFETY FIRE BOSS STAT High Sensitivity Troponin-I results should be used in conjunction with other diagnostic information such as ECG, clinical observations and information, and patient symptoms to aid in the diagnosis of MD.US ABDOMEN [id number] 13:53:04 [facility] : 1955 Sex: MTECHNIQUE: Grayscale ultrasound of the right abdomen.INDICATION: History of pancreatitis.COMPARISON:CT abdomen pelvis 04/20/2023, ultrasound 04/08/2023.FINDINGS:MIDLINE VASCULATURE: The visualized inferior vena cava is unremarkable.The maximum visualized aortic diameter is 2.1 cm.LIVER: Coarsened hepatic echotexture. Smooth liver contour. No focallesions. The main portal vein is patent and measures 1.0 cm in diameter.BILIARY:Gallbladder: Heterogeneous echogenic material seen within the distendedgallbladder measuring up to 5.3 cm. Gallbladder wall thickness withinnormal limits. No evidence of pericholecystic fluid. Negativesonographic Armendariz sign. Common bile duct measures 0.7 cm, within normal limits. Linearstructures seen within the CBD territory, likely representing stent. Nointrahepatic biliary ductal dilatation. Intrahepatic pneumobilia isnoted.PANCREAS: Not well visualized.PERITONEUM: No free fluid.RIGHT KIDNEY: Normal in size. No hydronephrosis. No sonographicallyevident solid mass lesion.IMPRESSION:1. Coarsened hepatic echotexture is a nonspecific finding however mayrepresent underlying parenchymal dysfunction including but not limitedto infectious/inflammatory process, fibrosis/cirrhosis and/orcholestasis.2. Heterogeneous echogenic material seen throughout the distendedgallbladder, may represent sludge and/or blood products within thegallbladder.3. Evidence of CBD stent with intrahepatic pneumobilia.Electronically Signed By: Iftikhar Bright04/24/2023 13:55 CDTWorkstation Name: [id number] 13:28:36 Test Item Value Reference Range Interpretation Comments POC-GLUCOSE METER 104 mg/dL 70-110 : TESTED A T [facility] 6720 (BEAKER) (test code = [facility] [place], 1538) [address]: Lending Consultant/Techni bang ID = [id number] for BRAD CURTIS [id number] 12:08:20 Test Item Value Reference Range Interpretation Comments LIPASE (BEAKER) (test code = 749) 54 U/L 8-78 Lending Consultant ID - [id number] 11:54:59 Test Item Value Reference Range Interpretation Comments FERRITIN (BEAKER) (test code = 517.50 ng/mL 5.00-275.00 H 361) POCT-GLUCOSE [id number] 09:02:06 Test Item Value Reference Range Interpretation Comments POC-GLUCOSE METER 80 mg/dL 70-110 : TESTED A T [facility] 6720 (BEAKER) (test code = [facility], 1538) 075[address]: Lending Consultant/Techni bang ID = [id number] for BRAD PATEL IRON, TIBC, % SAT. (WITHOUT FERRITIN)2023-04-24 06:37:11 Test Item Value Reference Range Interpretation Comments IRON (BEAKER) (test code = 547) 70.0 ug/dL 40.0-160.0 TOTAL IRON BINDING CAPACITY 225 ug/dL 250-450 L (BEAKER) (test code = 769) IRON % SATURATION (2) (BEAKER) 31 % 20-55 (test code = 2590) Lending Consultant ID - [id number] 06:17:30 Test Item Value Reference Range Interpretation Comments MAGNESIUM (BEAKER) (test code = 1.6 mg/dL 1.6-2.6 627) Lending Consultant ID - [id number] 06:17:30 Test Item Value Reference Range Interpretation Comments PHOSPHORUS (BEAKER) (test code = 3.5 mg/dL 2.3-4.7 604) Lending Consultant ID - ADMINHEPATIC FUNCTION [id number] 06:17:30 Test Item Value Reference Range Interpretation Comments TOTAL PROTEIN (BEAKER) (test code = 5.9 gm/dL 6.0-8.3 L 770) ALBUMIN (BEAKER) (test code = 1145) 3.0 g/dL 3.5-5.0 L BILIRUBIN TOTAL (BEAKER) (test code 0.7 mg/dL 0.2-1.2 = 377) BILIRUBIN DIRECT (BEAKER) (test 0.4 mg/dL 0.1-0.5 code = 706) ALKALINE PHOSPHATASE (BEAKER) (test 278 U/L 40-150 H code = 346) AST (SGOT) (BEAKER) (test code = 29 U/L 5-34 353) ALT (SGPT) (BEAKER) (test code = 89 U/L 6-55 H 347) Lending Consultant ID - ADMINBASIC METABOLIC [id number] 06:17:29 Test Item Value Reference Range Interpretation Comments SODIUM (BEAKER) 135 meq/L 136-145 L (test code = 381) POTASSIUM 4.7 meq/L 3.5-5.1 (BEAKER) (test code = 379) CHLORIDE (BEAKER) 100 meq/L 98-107 (test code = 382) CO2 (BEAKER) 26 meq/L 22-29 (test code = 355) BLOOD UREA 7 mg/dL 7-21 NITROGEN (BEAKER) (test code = 354) CREATININE 0.57 mg/dL 0.57-1.25 (BEAKER) (test code = 358) GLUCOSE RANDOM 103 mg/dL 70-105 (BEAKER) (test code = 652) CALCIUM (BEAKER) 8.7 mg/dL 8.4-10.2 (test code = 697) EGFR (BEAKER) 105 Interpretatio n of eGFR (test code = mL/min/1.73 values Stage De scription 1092) sq m Result G1 Norm al or high >=90 G2 Mildly decreased 60-89 G3a Mildl y to moderately 45-5 9 G3b Moderately to s everely 30-44 G4 Severl y decreased 15-29 G5 Kidney failure <15Reported eGF R is based on the CKD-EPI 2020 equation that d oes not use a race coefficientEsti mated GFR is not as accur ate as Creatinine Laurel bhardwaj in predicting glom erular filtration rate . Estimated GFR is not appl icable for dialysis patien ts Lending Consultant ID - ADMINCBC W/PLT COUNT & AUTO [id number] 05:46:20 Test Item Value Reference Range Interpretation Comments WHITE BLOOD CELL COUNT (BEAKER) 9.1 K/ L 3.5-10.5 (test code = 775) RED BLOOD CELL COUNT (BEAKER) 3.06 M/ L 4.63-6.08 L (test code = 761) HEMOGLOBIN (BEAKER) (test code = 9.2 GM/DL 13.7-17.5 L 410) HEMATOCRIT (BEAKER) (test code = 29.2 % 40.1-51.0 L 411) MEAN CORPUSCULAR VOLUME (BEAKER) 95 fL 79-92 H (test code = 753) MEAN CORPUSCULAR HEMOGLOBIN 30.1 pg 25.7-32.2 (BEAKER) (test code = 751) MEAN CORPUSCULAR HEMOGLOBIN CONC 31.5 GM/DL 32.3-36.5 L (BEAKER) (test code = 752) RED CELL DISTRIBUTION WIDTH 16.2 % 11.6-14.4 H (BEAKER) (test code = 412) PLATELET COUNT (BEAKER) (test 338 K/CU MM 150-450 code = 756) MEAN PLATELET VOLUME (BEAKER) 9.5 fL 9.4-12.4 (test code = 754) NUCLEATED RED BLOOD CELLS 0 /100 WBC 0-0 (BEAKER) (test code = 413) NEUTROPHILS RELATIVE PERCENT 58 % (BEAKER) (test code = 429) LYMPHOCYTES RELATIVE PERCENT 24 % (BEAKER) (test code = 430) MONOCYTES RELATIVE PERCENT 8 % (BEAKER) (test code = 431) EOSINOPHILS RELATIVE PERCENT 9 % (BEAKER) (test code = 432) BASOPHILS RELATIVE PERCENT 1 % (BEAKER) (test code = 437) NEUTROPHILS ABSOLUTE COUNT 5.24 K/ L 1.78-5.38 (BEAKER) (test code = 670) LYMPHOCYTES ABSOLUTE COUNT 2.19 K/ L 1.32-3.57 (BEAKER) (test code = 414) MONOCYTES ABSOLUTE COUNT (BEAKER) 0.71 K/ L 0.30-0.82 (test code = 415) EOSINOPHILS ABSOLUTE COUNT 0.84 K/ L 0.04-0.54 H (AKER) (test code = 416) BASOPHILS ABSOLUTE COUNT (AKER) 0.05 K/ L 0.01-0.08 (test code = 417) IMMATURE GRANULOCYTES-RELATIVE 0.70 % 0.00-1.00 PERCENT (BEAKER) (test code = 2801) CALCIUM, [id number] 05:31:29 Test Item Value Reference Range Interpretation Comments CALCIUM IONIZED ([facility]) (test 1.17 mmol/L 1.12-1.27 code = 698) PH, BLOOD ([facility]) (test code = 7.36 1810) POCT-GLUCOSE [id number] 21:41:26 Test Item Value Reference Range Interpretation Comments POC-GLUCOSE METER 119 mg/dL 70-110 H : Notified RN/MD: ([facility]) (test code = TESTED AT [place] [address]) [facility], [address]: Lending Consultant/Techni bagn ID = [id number] for FE LACHELLEALONDRA JERZY POCT-GLUCOSE [id number] 17:33:32 Test Item Value Reference Range Interpretation Comments POC-GLUCOSE METER 143 mg/dL 70-110 H : TESTED A T [facility] 6720 ([facility]) (test code = [facility], 153) [address]: Lending Consultant/Techni bang ID = [id number] for BRAD CURTIS POCT-GLUCOSE [id number] 12:28:16 Test Item Value Reference Range Interpretation Comments POC-GLUCOSE METER 99 mg/dL 70-110 : TESTED A T [facility] 6720 ([facility]) (test code = [facility], 153) [address]: Lending Consultant/Techni bang ID = [id number] for BRAD PATEL HEMOGLOBIN AND [id number] 12:25:49 Test Item Value Reference Range Interpretation Comments HEMOGLOBIN (BEAKER) (test code = 9.2 GM/DL 13.7-17.5 L 410) HEMATOCRIT ([facility]) (test code = 29.2 % 40.1-51.0 L 411) Lending Consultant ID - [id number]-GLUCOSE [id number] 08:32:09 Test Item Value Reference Range Interpretation Comments POC-GLUCOSE METER 74 mg/dL 70-110 : TESTED A T [facility] 6720 (BEAKER) (test code = [place], 1538) [address]: Lending Consultant/Techni bang ID = [id number] for BRAD PATEL HEPATIC FUNCTION [id number] 06:01:31 Test Item Value Reference Range Interpretation Comments TOTAL PROTEIN (BEAKER) (test code = 5.8 gm/dL 6.0-8.3 L 770) ALBUMIN (BEAKER) (test code = 1145) 3.0 g/dL 3.5-5.0 L BILIRUBIN TOTAL (BEAKER) (test code 1.0 mg/dL 0.2-1.2 = 377) BILIRUBIN DIRECT (BEAKER) (test 0.6 mg/dL 0.1-0.5 H code = 706) ALKALINE PHOSPHATASE (BEAKER) (test 298 U/L 40-150 H code = 346) AST (SGOT) (BEAKER) (test code = 54 U/L 5-34 H 353) ALT (SGPT) (BEAKER) (test code = 124 U/L 6-55 H 347) Lending Consultant ID - [id number] 06:01:30 Test Item Value Reference Range Interpretation Comments PHOSPHORUS (BEAKER) (test code = 4.3 mg/dL 2.3-4.7 604) Lending Consultant ID - ADMINBASIC METABOLIC [id number] 06:01:29 Test Item Value Reference Range Interpretation Comments SODIUM (BEAKER) 138 meq/L 136-145 (test code = 381) POTASSIUM 3.7 meq/L 3.5-5.1 (BEAKER) (test code = 379) CHLORIDE (BEAKER) 100 meq/L 98-107 (test code = 382) CO2 (BEAKER) 28 meq/L 22-29 (test code = 355) BLOOD UREA 7 mg/dL 7-21 NITROGEN (BEAKER) (test code = 354) CREATININE 0.58 mg/dL 0.57-1.25 (BEAKER) (test code = 358) GLUCOSE RANDOM 84 mg/dL 70-105 (BEAKER) (test code = 652) CALCIUM (BEAKER) 8.6 mg/dL 8.4-10.2 (test code = 697) EGFR (BEAKER) 105 Interpretatio n of eGFR (test code = mL/min/1.73 values Stage De scription 1092) sq m Result G1 Paras l or high >=90 G2 Mildly decreased 60-89 G3a Mildl y to moderately 45-5 9 G3b Moderately to s everely 30-44 G4 Severl y decreased 15-29 G5 Kidney failure <15Reported eGF R is based on the CKD-EPI 2020 equation that d oes not use a race coefficientEsti mated GFR is not as accur ate as Creatinine Laurel benton in predicting glom erular filtration rate . Estimated GFR is not appl icable for dialysis patien ts Lending Consultant ID - [id number] 06:01:29 Test Item Value Reference Range Interpretation Comments MAGNESIUM (BEAKER) (test code = 1.9 mg/dL 1.6-2.6 627) Lending Consultant ID - ADMINCBC W/PLT COUNT & AUTO [id number] 05:15:28 Test Item Value Reference Range Interpretation Comments WHITE BLOOD CELL COUNT (BEAKER) 8.8 K/ L 3.5-10.5 (test code = 775) RED BLOOD CELL COUNT (BEAKER) 3.13 M/ L 4.63-6.08 L (test code = 761) HEMOGLOBIN (BEAKER) (test code = 9.3 GM/DL 13.7-17.5 L 410) HEMATOCRIT (BEAKER) (test code = 28.6 % 40.1-51.0 L 411) MEAN CORPUSCULAR VOLUME (BEAKER) 91 fL 79-92 (test code = 753) MEAN CORPUSCULAR HEMOGLOBIN 29.7 pg 25.7-32.2 (BEAKER) (test code = 751) MEAN CORPUSCULAR HEMOGLOBIN CONC 32.5 GM/DL 32.3-36.5 (BEAKER) (test code = 752) RED CELL DISTRIBUTION WIDTH 15.9 % 11.6-14.4 H (BEAKER) (test code = 412) PLATELET COUNT (BEAKER) (test 326 K/CU MM 150-450 code = 756) MEAN PLATELET VOLUME (BEAKER) 9.4 fL 9.4-12.4 (test code = 754) NUCLEATED RED BLOOD CELLS 0 /100 WBC 0-0 (BEAKER) (test code = 413) NEUTROPHILS RELATIVE PERCENT 62 % (BEAKER) (test code = 429) LYMPHOCYTES RELATIVE PERCENT 26 % (BEAKER) (test code = 430) MONOCYTES RELATIVE PERCENT 7 % (BEAKER) (test code = 431) EOSINOPHILS RELATIVE PERCENT 4 % (BEAKER) (test code = 432) BASOPHILS RELATIVE PERCENT 1 % (BEAKER) (test code = 437) NEUTROPHILS ABSOLUTE COUNT 5.43 K/ L 1.78-5.38 H (BEAKER) (test code = 670) LYMPHOCYTES ABSOLUTE COUNT 2.26 K/ L 1.32-3.57 (BEAKER) (test code = 414) MONOCYTES ABSOLUTE COUNT (BEAKER) 0.65 K/ L 0.30-0.82 (test code = 415) EOSINOPHILS ABSOLUTE COUNT 0.39 K/ L 0.04-0.54 (BEAKER) (test code = 416) BASOPHILS ABSOLUTE COUNT (BEAKER) 0.04 K/ L 0.01-0.08 (test code = 417) IMMATURE GRANULOCYTES-RELATIVE 0.60 % 0.00-1.00 PERCENT (BEAKER) (test code = 2801) CALCIUM, [id number] 05:03:43 Test Item Value Reference Range Interpretation Comments CALCIUM IONIZED (BEAKER) (test 1.13 mmol/L 1.12-1.27 code = 698) PH, BLOOD (BEAKER) (test code = 7.40 1810) CT BRAIN WITHOUT IV [id number] 02:50:02 [facility] : 1955 Sex: MEXAM: CT BRAIN WITHOUT IV CONTRASTINDICATION: Headache, new or worseningTECHNIQUE: CT images from skull base to vertex without IV contrast.This exam was performed according to the departmental dose optimizationprogram which includes automated exposure control, adjustment of the mAand/or kV according to the patient size, and/or use of an iterativereconstruction technique.COMPARISON: None.FINDINGS: Parenchyma: No evidence of acute infarction. No hemorrhage. No mass ormass effect. Patchy and confluent areas of hypoattenuation are presentin the cerebral white matter that are nonspecific but compatible withmoderate chronic microvascular ischemic changes. Extra-axial Collection: NoneVentricular System: No hydrocephalusOsseous Structures: No acute osseous abnormality. Included Orbits: NormalParanasal Sin uses: Predominantly clearTympanomastoid Cavities: NormalOther: NoneIMPRESSION:1. No acute abnormality on CT head without contrast.2. Moderate chronic microvascular ischemic changes.Electronically Signed By: Hair Merritt04/23/2023 02:52 CDTWorkstation Name: [id number] 23:07:23 Test Item Value Reference Range Interpretation Comments POC-GLUCOSE METER 160 mg/dL 70-110 H : TESTED A T [facility] 6720 (BEAKER) (test code = [facility], 1538) [address]: Lending Consultant/Techni bang ID = [id number] for JAVAD HODGE POCT-GLUCOSE [id number] 18:23:02 Test Item Value Reference Range Interpretation Comments POC-GLUCOSE METER 88 mg/dL 70-110 : TESTED A T [facility] 6720 (BEAKER) (test code = [facility], 153) [address]: Lending Consultant/Techni bang ID = [id number] for Yuriy friedman (contract), [employer] by HEMOGLOBIN AND [id number] 15:43:05 Test Item Value Reference Range Interpretation Comments HEMOGLOBIN (BEAKER) (test code = 9.1 GM/DL 13.7-17.5 L 410) HEMATOCRIT (BEAKER) (test code = 27.9 % 40.1-51.0 L 411) Lending Consultant ID - [id number] [id number] 13:06:09 Test Item Value Reference Range Interpretation Comments POC-GLUCOSE METER 95 mg/dL 70-110 : TESTED A T [facility] 6720 (BEAKER) (test code = [facility], 1538) [id number]: Lending Consultant/Techni bang ID = [id number] for [place] POCT-GLUCOSE [id number] 08:58:26 Test Item Value Reference Range Interpretation Comments POC-GLUCOSE METER 69 mg/dL 70-110 L : TESTED A T [facility] 6720 (BEAKER) (test code = [facility] [place], 1538) [address]: Lending Consultant/Techni bang ID = [id number] for [employer] CALCIUM, [id number] 08:26:03 Test Item Value Reference Range Interpretation Comments CALCIUM IONIZED (BEAKER) (test 1.13 mmol/L 1.12-1.27 code = 698) PH, BLOOD (BEAKER) (test code = 7.40 1810) BASIC METABOLIC [id number] 07:31:11 Test Item Value Reference Range Interpretation Comments SODIUM (BEAKER) 139 meq/L 136-145 (test code = 381) POTASSIUM 3.7 meq/L 3.5-5.1 (BEAKER) (test code = 379) CHLORIDE (BEAKER) 103 meq/L 98-107 (test code = 382) CO2 (BEAKER) 30 meq/L 22-29 H (test code = 355) BLOOD UREA 7 mg/dL 7-21 NITROGEN (BEAKER) (test code = 354) CREATININE 0.49 mg/dL 0.57-1.25 L (BEAKER) (test code = 358) GLUCOSE RANDOM 66 mg/dL 70-105 L (BEAKER) (test code = 652) CALCIUM (BEAKER) 8.6 mg/dL 8.4-10.2 (test code = 697) EGFR (BEAKER) 109 Interpretatio n of eGFR (test code = mL/min/1.73 values Stage De scription 1092) sq m Result G1 Paras l or high >=90 G2 Mildly decreased 60-89 G3a Mildl y to moderately 45-5 9 G3b Moderately to s everely 30-44 G4 Severl y decreased 15-29 G5 Kidney failure <15Reported eGF R is based on the CKD-EPI 2021 equation that d oes not use a race coefficientEsti mated GFR is not as accur ate as Creatinine Laurel benton in predicting glom erular filtration rate . Estimated GFR is not appl icable for dialysis patien ts Lending Consultant ID - emHEPATIC FUNCTION [id number] 07:14:33 Test Item Value Reference Range Interpretation Comments TOTAL PROTEIN (BEAKER) (test code = 5.6 gm/dL 6.0-8.3 L 770) ALBUMIN (BEAKER) (test code = 1145) 3.0 g/dL 3.5-5.0 L BILIRUBIN TOTAL (BEAKER) (test code 1.2 mg/dL 0.2-1.2 = 377) BILIRUBIN DIRECT (BEAKER) (test 0.8 mg/dL 0.1-0.5 H code = 706) ALKALINE PHOSPHATASE (BEAKER) (test 251 U/L 40-150 H code = 346) AST (SGOT) (BEAKER) (test code = 114 U/L 5-34 H 353) ALT (SGPT) (BEAKER) (test code = 172 U/L 6-55 H 347) Lending Consultant ID - [id number] 07:14:32 Test Item Value Reference Range Interpretation Comments MAGNESIUM (BEAKER) (test code = 1.7 mg/dL 1.6-2.6 627) Lending Consultant ID - [id number] 07:14:32 Test Item Value Reference Range Interpretation Comments PHOSPHORUS (BEAKER) (test code = 2.6 mg/dL 2.3-4.7 604) Lending Consultant ID - emCBC W/PLT COUNT & AUTO [id number] 06:48:44 Test Item Value Reference Range Interpretation Comments WHITE BLOOD CELL COUNT (BEAKER) 11.3 K/ L 3.5-10.5 H (test code = 775) RED BLOOD CELL COUNT (BEAKER) 3.12 M/ L 4.63-6.08 L (test code = 761) HEMOGLOBIN (BEAKER) (test code = 9.2 GM/DL 13.7-17.5 L 410) HEMATOCRIT (BEAKER) (test code = 28.1 % 40.1-51.0 L 411) MEAN CORPUSCULAR VOLUME (BEAKER) 90 fL 79-92 (test code = 753) MEAN CORPUSCULAR HEMOGLOBIN 29.5 pg 25.7-32.2 (BEAKER) (test code = 751) MEAN CORPUSCULAR HEMOGLOBIN CONC 32.7 GM/DL 32.3-36.5 (BEAKER) (test code = 752) RED CELL DISTRIBUTION WIDTH 15.9 % 11.6-14.4 H (BEAKER) (test code = 412) PLATELET COUNT (BEAKER) (test 290 K/CU MM 150-450 code = 756) MEAN PLATELET VOLUME (BEAKER) 9.7 fL 9.4-12.4 (test code = 754) NUCLEATED RED BLOOD CELLS 0 /100 WBC 0-0 (BEAKER) (test code = 413) NEUTROPHILS RELATIVE PERCENT 66 % (BEAKER) (test code = 429) LYMPHOCYTES RELATIVE PERCENT 23 % (BEAKER) (test code = 430) MONOCYTES RELATIVE PERCENT 8 % (BEAKER) (test code = 431) EOSINOPHILS RELATIVE PERCENT 3 % (BEAKER) (test code = 432) BASOPHILS RELATIVE PERCENT 0 % (BEAKER) (test code = 437) NEUTROPHILS ABSOLUTE COUNT 7.39 K/ L 1.78-5.38 H (BEAKER) (test code = 670) LYMPHOCYTES ABSOLUTE COUNT 2.57 K/ L 1.32-3.57 (BEAKER) (test code = 414) MONOCYTES ABSOLUTE COUNT (BEAKER) 0.87 K/ L 0.30-0.82 H (test code = 415) EOSINOPHILS ABSOLUTE COUNT 0.30 K/ L 0.04-0.54 (BEAKER) (test code = 416) BASOPHILS ABSOLUTE COUNT (BEAKER) 0.04 K/ L 0.01-0.08 (test code = 417) IMMATURE GRANULOCYTES-RELATIVE 0.70 % 0.00-1.00 PERCENT (BEAKER) (test code = 2801) POCT-GLUCOSE [id number] 22:34:00 Test Item Value Reference Range Interpretation Comments POC-GLUCOSE METER 91 mg/dL 70-110 : TESTED A T [facility] 6720 (BEAKER) (test code = [place], 1538) [id number]: Lending Consultant/Techni bang ID = [id number] for CINDY Li HEMOGLOBIN AND [id number] 18:49:29 Test Item Value Reference Range Interpretation Comments HEMOGLOBIN (BEAKER) (test code = 8.9 GM/DL 13.7-17.5 L 410) HEMATOCRIT (BEAKER) (test code = 26.0 % 40.1-51.0 L 411) Lending Consultant ID - 6000POCT-GLUCOSE [id number] 11:18:00 Test Item Value Reference Range Interpretation Comments POC-GLUCOSE METER 130 mg/dL 70-110 H : TESTED A T [facility] 6720 (BEAKER) (test code = [place], 1538) [address]: Lending Consultant/Techni bang ID = [id number] for Regan Fragoso BASIC METABOLIC [id number] 10:47:59 Test Item Value Reference Range Interpretation Comments SODIUM (BEAKER) 131 meq/L 136-145 L (test code = 381) POTASSIUM 5.1 meq/L 3.5-5.1 (BEAKER) (test code = 379) CHLORIDE (BEAKER) 96 meq/L 98-107 L (test code = 382) CO2 (BEAKER) 29 meq/L 22-29 (test code = 355) BLOOD UREA 7 mg/dL 7-21 NITROGEN (BEAKER) (test code = 354) CREATININE 0.60 mg/dL 0.57-1.25 (BEAKER) (test code = 358) GLUCOSE RANDOM 379 mg/dL 70-105 H (BEAKER) (test code = 652) CALCIUM (BEAKER) 8.1 mg/dL 8.4-10.2 L (test code = 697) EGFR (BEAKER) 104 Interpretatio n of eGFR (test code = mL/min/1.73 values Stage De scription 1092) sq m Result G1 Paras l or high >=90 G2 Mildly decreased 60-89 G3a Mildl y to moderately 45-5 9 G3b Moderately to s everely 30-44 G4 Severl y decreased 15-29 G5 Kidney failure <15Reported eGF R is based on the CKD-EPI 2020 equation that d oes not use a race coefficientEsti mated GFR is not as accur ate as Creatinine Laurel bhardwaj in predicting glom erular filtration rate . Estimated GFR is not appl icable for dialysis patien ts Lending Consultant ID - BCCBC (HEMOGRAM ONLY)2023-04-21 10:32:16 Test Item Value Reference Range Interpretation Comments WHITE BLOOD CELL COUNT (BEAKER) 10.5 K/ L 3.5-10.5 (test code = 775) RED BLOOD CELL COUNT (BEAKER) 2.76 M/ L 4.63-6.08 L (test code = 761) HEMOGLOBIN (BEAKER) (test code = 8.5 GM/DL 13.7-17.5 L 410) HEMATOCRIT (BEAKER) (test code = 24.9 % 40.1-51.0 L 411) MEAN CORPUSCULAR VOLUME (BEAKER) 90 fL 79-92 (test code = 753) MEAN CORPUSCULAR HEMOGLOBIN 30.8 pg 25.7-32.2 (BEAKER) (test code = 751) MEAN CORPUSCULAR HEMOGLOBIN CONC 34.1 GM/DL 32.3-36.5 (BEAKER) (test code = 752) RED CELL DISTRIBUTION WIDTH 15.7 % 11.6-14.4 H (BEAKER) (test code = 412) PLATELET COUNT (BEAKER) (test 228 K/CU MM 150-450 code = 756) MEAN PLATELET VOLUME (BEAKER) 9.7 fL 9.4-12.4 (test code = 754) NUCLEATED RED BLOOD CELLS 0 /100 WBC 0-0 (BEAKER) (test code = 413) CALCIUM, [id number] 10:30:54 Test Item Value Reference Range Interpretation Comments CALCIUM IONIZED (BEAKER) (test 1.12 mmol/L 1.12-1.27 code = 698) PH, BLOOD (BEAKER) (test code = 7.35 1810) CBC W/PLT COUNT & AUTO [id number] 06:54:02 Test Item Value Reference Range Interpretation Comments WHITE BLOOD CELL COUNT (BEAKER) 10.0 K/ L 3.5-10.5 (test code = 775) RED BLOOD CELL COUNT (BEAKER) 2.75 M/ L 4.63-6.08 L (test code = 761) HEMOGLOBIN (BEAKER) (test code = 8.1 GM/DL 13.7-17.5 L 410) HEMATOCRIT (BEAKER) (test code = 23.9 % 40.1-51.0 L 411) MEAN CORPUSCULAR VOLUME (BEAKER) 87 fL 79-92 (test code = 753) MEAN CORPUSCULAR HEMOGLOBIN 29.5 pg 25.7-32.2 (BEAKER) (test code = 751) MEAN CORPUSCULAR HEMOGLOBIN CONC 33.9 GM/DL 32.3-36.5 (BEAKER) (test code = 752) RED CELL DISTRIBUTION WIDTH 15.6 % 11.6-14.4 H (BEAKER) (test code = 412) PLATELET COUNT (BEAKER) (test 222 K/CU MM 150-450 code = 756) MEAN PLATELET VOLUME (BEAKER) 9.6 fL 9.4-12.4 (test code = 754) NUCLEATED RED BLOOD CELLS 0 /100 WBC 0-0 (BEAKER) (test code = 413) NEUTROPHILS RELATIVE PERCENT 77 % (BEAKER) (test code = 429) LYMPHOCYTES RELATIVE PERCENT 16 % (BEAKER) (test code = 430) MONOCYTES RELATIVE PERCENT 6 % (BEAKER) (test code = 431) EOSINOPHILS RELATIVE PERCENT 0 % (BEAKER) (test code = 432) BASOPHILS RELATIVE PERCENT 0 % (BEAKER) (test code = 437) NEUTROPHILS ABSOLUTE COUNT 7.72 K/ L 1.78-5.38 H (BEAKER) (test code = 670) LYMPHOCYTES ABSOLUTE COUNT 1.63 K/ L 1.32-3.57 (BEAKER) (test code = 414) MONOCYTES ABSOLUTE COUNT (BEAKER) 0.59 K/ L 0.30-0.82 (test code = 415) EOSINOPHILS ABSOLUTE COUNT 0.00 K/ L 0.04-0.54 L (BEAKER) (test code = 416) BASOPHILS ABSOLUTE COUNT (BEAKER) 0.00 K/ L 0.01-0.08 L (test code = 417) IMMATURE GRANULOCYTES-RELATIVE 0.60 % 0.00-1.00 PERCENT (BEAKER) (test code = 2801) POCT-GLUCOSE [id number] 06:42:33 Test Item Value Reference Range Interpretation Comments POC-GLUCOSE METER 143 mg/dL 70-110 H : TESTED A T [facility] 6720 (BEAKER) (test code = [facility], 153) [address]: Lending Consultant/Techni bang ID = [id number] for Hou Sammy thakkar POCT-GLUCOSE [id number] 06:10:33 Test Item Value Reference Range Interpretation Comments POC-GLUCOSE METER 183 mg/dL 70-110 H : TESTED A T [facility] 6720 (BEAKER) (test code = [facility], 153) [address]: Lending Consultant/Techni bang ID = [id number] for Hou rrjayleen, Sammy BASIC METABOLIC [id number] 06:05:51 Test Item Value Reference Range Interpretation Comments SODIUM (BEAKER) 130 meq/L 136-145 L (test code = 381) POTASSIUM 5.4 meq/L 3.5-5.1 H Specimen slight ly (BEAKER) (test hemolyzed code = 379) CHLORIDE (BEAKER) 97 meq/L 98-107 L (test code = 382) CO2 (BEAKER) 24 meq/L 22-29 (test code = 355) BLOOD UREA 7 mg/dL 7-21 NITROGEN (BEAKER) (test code = 354) CREATININE 0.64 mg/dL 0.57-1.25 Specimen slight ly (BEAKER) (test hemolyzed code = 358) GLUCOSE RANDOM 401 mg/dL 70-105 HH (BEAKER) (test code = 652) CALCIUM (BEAKER) 7.9 mg/dL 8.4-10.2 L (test code = 697) EGFR (BEAKER) 102 Interpretatio n of eGFR (test code = mL/min/1.73 values Stage De scription 1092) sq m Result G1 Paras l or high >=90 G2 Mildly decreased 60-89 G3a Mildl y to moderately 45-5 9 G3b Moderately to s everely 30-44 G4 Severl y decreased 15-29 G5 Kidney failure <15Reported eGF R is based on the CKD-EPI 2020 equation that d oes not use a race coefficientEsti mated GFR is not as accur ate as Creatinine Laurel bhardwaj in predicting glom erular filtration rate . Estimated GFR is not appl icable for dialysis patien ts Lending Consultant ID - ADMINCALCIUM, [id number] 05:55:18 Test Item Value Reference Range Interpretation Comments CALCIUM IONIZED (BEAKER) (test 1.06 mmol/L 1.12-1.27 L code = 698) PH, BLOOD (BEAKER) (test code = 7.43 1810) [id number] 05:55:07 Test Item Value Reference Range Interpretation Comments PHOSPHORUS (BEAKER) 3.0 mg/dL 2.3-4.7 Specimen slightly (test code = 604) hemolyzed Lending Consultant ID - ADMINHEPATIC FUNCTION [id number] 05:55:07 Test Item Value Reference Range Interpretation Comments TOTAL PROTEIN (BEAKER) 5.2 gm/dL 6.0-8.3 L Speci men slightly (test code = 770) hemolyzed ALBUMIN (BEAKER) (test 2.6 g/dL 3.5-5.0 L Speci men slightly code = 1145) hemolyzed BILIRUBIN TOTAL 1.6 mg/dL 0.2-1.2 H Specimen sli ghtly (BEAKER) (test code = hemoly zed 377) BILIRUBIN DIRECT 1.0 mg/dL 0.1-0.5 H Specimen sl ightly (BEAKER) (test code = hemoly zed 706) ALKALINE PHOSPHATASE 217 U/L 40-150 H (BEAKER) (test code = 346) AST (SGOT) (BEAKER) 123 U/L 5-34 H Specimen slightly (test code = 353) hemolyzed ALT (SGPT) (BEAKER) 147 U/L 6-55 H Specimen slightly (test code = 347) hemolyzed Lending Consultant ID - [id number] 05:55:06 Test Item Value Reference Range Interpretation Comments MAGNESIUM (BEAKER) 2.3 mg/dL 1.6-2.6 Specimen slightly (test code = 627) hemolyzed Lending Consultant ID - ADMINLACTIC ACID, [id number] 05:27:52 Test Item Value Reference Range Interpretation Comments LACTATE BLOOD VENOUS 0.86 mmol/L 0.50-2.00 Specime n slightly (2) (BEAKER) (test hemolyzed code = 2872) Lending Consultant ID - EOCBC (HEMOGRAM ONLY)2023-04-20 22:47:35 Test Item Value Reference Range Interpretation Comments WHITE BLOOD CELL COUNT (BEAKER) 10.0 K/ L 3.5-10.5 (test code = 775) RED BLOOD CELL COUNT (BEAKER) 2.66 M/ L 4.63-6.08 L (test code = 761) HEMOGLOBIN (BEAKER) (test code = 7.8 GM/DL 13.7-17.5 L 410) HEMATOCRIT (BEAKER) (test code = 23.3 % 40.1-51.0 L 411) MEAN CORPUSCULAR VOLUME (BEAKER) 88 fL 79-92 (test code = 753) MEAN CORPUSCULAR HEMOGLOBIN 29.3 pg 25.7-32.2 (BEAKER) (test code = 751) MEAN CORPUSCULAR HEMOGLOBIN CONC 33.5 GM/DL 32.3-36.5 (BEAKER) (test code = 752) RED CELL DISTRIBUTION WIDTH 15.5 % 11.6-14.4 H (BEAKER) (test code = 412) PLATELET COUNT (BEAKER) (test 212 K/CU MM 150-450 code = 756) MEAN PLATELET VOLUME (BEAKER) 9.6 fL 9.4-12.4 (test code = 754) NUCLEATED RED BLOOD CELLS 0 /100 WBC 0-0 (BEAKER) (test code = 413) POCT-GLUCOSE [id number] 19:03:29 Test Item Value Reference Range Interpretation Comments POC-GLUCOSE METER 150 mg/dL 70-110 H : TESTED A T [facility] 6720 (BEAKER) (test code = [place], 1538) [address]: Lending Consultant/Techni bang ID = [id number] for Linda Doshi [id number] 16:40:53 Test Item Value Reference Range Interpretation Comments PARTIAL THROMBOPLASTIN TIME 29.4 seconds 22.5-36.0 (BEAKER) (test code = 760) XR ABDOMEN/KUB 1 VIEW [id number] 16:40:38 [facility] 1955 Sex: MTECHNIQUE: XR ABDOMEN/KUB 1 VIEW PORTABLEINDICATION: evaluate NG tube.COMPARISON: None.FINDINGS:Esophagogastric tube tip projected over the body of the stomach withsidehole below the expected level of the GE junction. Excreted contrastis present within the pelvis. Metallic common bile duct stent ispresent. No specific evidence for bowel obstruction. Lower pelvis isincompletely included on this examination. Supine radiographs areinsensitive for detection of free intraperitoneal air.IMPRESSION:Esophagogastric tube tip projected over the body of the stomach withsidehole below the expected level of theGE junction.Electronically Signed By: Angel Eddy04/20/2023 16:42 CDTWorkstation Name: [id number] 14:44:18 Test Item Value Reference Range Interpretation Comments PROTIME (BEAKER) (test code = 13.3 seconds 11.9-14.2 759) INR (BEAKER) (test code = 370) 1.00 <=5.90 PARTIAL THROMBOPLASTIN TIME 163.2 seconds 22.5-36.0 HH (BEAKER) (test code = 760) RECOMMENDED COUMADIN/WARFARIN INR THERAPY RANGESSTANDARD DOSE: 2.0 - 3.0 Includes: PROPHYLAXIS for venous thrombosis, systemic embolization; TREATMENT for venous thrombosis and/or pulmonary embolus.HIGH RISK: Target INR is 2.5-3.5 for patients with mechanical heart valves.BASIC METABOLIC [id number] 14:40:03 Test Item Value Reference Range Interpretation Comments SODIUM (BEAKER) 140 meq/L 136-145 (test code = 381) POTASSIUM 3.4 meq/L 3.5-5.1 L (BEAKER) (test code = 379) CHLORIDE (BEAKER) 103 meq/L 98-107 (test code = 382) CO2 (BEAKER) 29 meq/L 22-29 (test code = 355) BLOOD UREA 11 mg/dL 7-21 NITROGEN (BEAKER) (test code = 354) CREATININE 0.54 mg/dL 0.57-1.25 L (BEAKER) (test code = 358) GLUCOSE RANDOM 126 mg/dL 70-105 H (BEAKER) (test code = 652) CALCIUM (BEAKER) 8.0 mg/dL 8.4-10.2 L (test code = 697) EGFR (BEAKER) 106 Interpretatio n of eGFR (test code = mL/min/1.73 values Stage De scription 1092) sq m Result G1 Paras l or high >=90 G2 Mildly decreased 60-89 G3a Mildl y to moderately 45-5 9 G3b Moderately to s everely 30-44 G4 Severl y decreased 15-29 G5 Kidney failure <15Reported eGF R is based on the CKD-EPI 2020 equation that d oes not use a race coefficientEsti mated GFR is not as accur ate as Creatinine Laurel bhardwaj in predicting glom erular filtration rate . Estimated GFR is not appl icable for dialysis patien ts Lending Consultant ID - [id number] 14:40:03 Test Item Value Reference Range Interpretation Comments MAGNESIUM (BEAKER) (test code = 2.0 mg/dL 1.6-2.6 627) Lending Consultant ID - PORTILLOOLACTIC ACID, [id number] 14:37:01 Test Item Value Reference Range Interpretation Comments LACTATE BLOOD VENOUS 1.30 mmol/L 0.50-2.00 Specime n slightly (2) (BEAKER) (test hemolyzed code = 2872) Lending Consultant ID - MARCOCALCIUM, [id number] 14:30:49 Test Item Value Reference Range Interpretation Comments CALCIUM IONIZED (BEAKER) (test 1.02 mmol/L 1.12-1.27 L code = 698) PH, BLOOD (BEAKER) (test code = 7.34 1810) POCT-GLUCOSE [id number] 14:27:54 Test Item Value Reference Range Interpretation Comments POC-GLUCOSE METER 128 mg/dL 70-110 H : TESTED A T [facility] 6720 (BEAKER) ([facility] 1538) [id number]: Lending Consultant/Techni bang ID = [id number] for Linda Doshi CBC (HEMOGRAM ONLY)2023-04-20 14:26:52 Test Item Value Reference Range Interpretation Comments WHITE BLOOD CELL COUNT 13.8 K/ L 3.5-10.5 H (BEAKER) (test code = 775) RED BLOOD CELL COUNT 3.23 M/ L 4.63-6.08 L (BEAKER) (test code = 761) HEMOGLOBIN (BEAKER) 9.5 GM/DL 13.7-17.5 L (test code = 410) HEMATOCRIT (BEAKER) 28.4 % 40.1-51.0 L (test code = 411) MEAN CORPUSCULAR 88 fL 79-92 Discordant results VOLUME (BEAKER) (test compar ed to code = 753) previous, clini tracy correlation required. MEAN CORPUSCULAR 29.4 pg 25.7-32.2 HEMOGLOBIN (BEAKER) (test code = 751) MEAN CORPUSCULAR 33.5 GM/DL 32.3-36.5 HEMOGLOBIN CONC (BEAKER) (test code = 752) RED CELL DISTRIBUTION 15.0 % 11.6-14.4 H WIDTH (BEAKER) (test code = 412) PLATELET COUNT 222 K/CU MM 150-450 (BEAKER) (test code = 756) MEAN PLATELET VOLUME 9.4 fL 9.4-12.4 (BEAKER) (test code = 754) NUCLEATED RED BLOOD 0 /100 WBC 0-0 CELLS (BEAKER) (test code = 413) [id number] 14:05:17 Test Item Value Reference Range Interpretation Comments PROCALCITONIN (BEAKER) (test code 0.72 ng/mL <0.05 H = 3036) SEPSIS RISK (ng/mL)Low: 0.05-0.50Intermediate: 0.51-2.00High: >=2.01FL ERCP 2023-04-20 12:48:58 [facility] : 1955 Sex: MThis is a non- reportable study with no Radiologist dictation. Please refer to your PACS to review images, or Doc Flowsheets for documentation on studies without images. LACTIC ACID, [id number] 11:34:22 Test Item Value Reference Range Interpretation Comments LACTATE BLOOD VENOUS (2) (BEAKER) 1.32 mmol/L 0.50-2.00 (test code = 2872) Lending Consultant ID - MARCOCTA ABDOMEN & [id number] 09:31:47 [facility] : 1955 Sex: MTECHNIQUE: CT of the abdomen and pelvis WITHOUT and WITH intravenouscontrast and WITHOUT oral contrast. Postcontrast images were obtained inboth the arterial and delayed phases. Coronal and sagittal reformationswere performed. Coronal MIP images were performed. Dose modulation,iterative reconstruction, and/or weight-based adjustment of the mA/kVwas utilized to reduce the radiation dose to as low as re asonablyachievable.INDICATION: GI bleed.COMPARISON: CT abdomen and pelvis 04/16/2023.FINDINGS:LOWER THORAX: Small bilateral pleural effusions, left greater thanright. Centrilobular emphysema within thelung bases. Compressiveatelectatic changes within the lower lobes.HEPATOBILIARY: 5 mm segment four hepatic hypodensity, likely a cyst orhemangioma. Distended gallbladder. Hyperdense material within thegallbladder which may be related to vicarious excretion of contrast fromthe prior CT or possibly blood products. No active extravasation ofcontrast into the gallbladder lumen. Small amount of pericholecysticfluid. No abnormal biliary ductal dilatation.SPLEEN: No splenomegaly.ADRENALS: No adrenal nodules.PANCREAS: No focal masses or ductal dilatation.LYMPH NODES: No lymphadenopathy.KIDNEYS/URETERS: No hydronephrosis, stones, or masses.PELVIC ORGANS/BLADDER: Unremarkable.VESSELS: Aortoiliac atherosclerotic calcifications are present. Noabdominal aortic aneurysm or dissection. Mesenteric and renal arterieswithout hemodynamically significant stenosis.PERITONEUM/RETROPERITONEUM: Small volume of abdominal and pelvic freefluid, decreased compared to the prior examination. No free air.GI TRACT: Enteric contrast is present throughout the colon limiting theevaluation for active GI bleed. No abnormal bowel wall thickening orobstruction. Normal appendix.BONES AND SOFT TISSUES: Unremarkable.IMPRESSION:1. Thepresence of residual enteric contrast throughout the colon limitsthe overall sensitivity and specificity of this examination fordetection of GI bleed. Within this limitation, no active GI bleedidentified.2. Distended gallbladder. Increase in hyperdense material layeringwithin the gallbladder which maybe related to vicarious excretion ofcontrast related to the prior IV contrast bolus for CT from 04/16/2023.Blood products would also be a consideration. Pericholecystic fluid ispresent and new comparedto the prior examination. Correlation withlaboratory values and right upper quadrant ultrasound, as c linicallyindicated.3. Overall improvement in abdominal and pelvic free fluid. No discreteintraperitoneal collection.4. Small bilateral pleural effusions, left greater than right,unchanged.5. Normal appendix.Electronically Signed By: Angel Eddy04/20/2023 09:33 CDTWorkstation Name: [id number] (HEMOGRAM ONLY)2023-04-20 09:30:00 Test Item Value Reference Range Interpretation Comments WHITE BLOOD CELL COUNT (BEAKER) 9.6 K/ L 3.5-10.5 (test code = 775) RED BLOOD CELL COUNT (BEAKER) 2.38 M/ L 4.63-6.08 L (test code = 761) HEMOGLOBIN (BEAKER) (test code = 7.2 GM/DL 13.7-17.5 L 410) HEMATOCRIT (BEAKER) (test code = 21.8 % 40.1-51.0 L 411) MEAN CORPUSCULAR VOLUME (BEAKER) 92 fL 79-92 (test code = 753) MEAN CORPUSCULAR HEMOGLOBIN 30.3 pg 25.7-32.2 (BEAKER) (test code = 751) MEAN CORPUSCULAR HEMOGLOBIN CONC 33.0 GM/DL 32.3-36.5 (BEAKER) (test code = 752) RED CELL DISTRIBUTION WIDTH 15.4 % 11.6-14.4 H (BEAKER) (test code = 412) PLATELET COUNT (BEAKER) (test 207 K/CU MM 150-450 code = 756) MEAN PLATELET VOLUME (BEAKER) 9.3 fL 9.4-12.4 L (test code = 754) NUCLEATED RED BLOOD CELLS 0 /100 WBC 0-0 (BEAKER) (test code = 413) BASIC METABOLIC [id number] 08:49:00 Test Item Value Reference Range Interpretation Comments SODIUM (BEAKER) 137 meq/L 136-145 (test code = 381) POTASSIUM 4.0 meq/L 3.5-5.1 Specimen slight ly (BEAKER) (test hemolyzed code = 379) CHLORIDE (BEAKER) 102 meq/L 98-107 (test code = 382) CO2 (BEAKER) 26 meq/L 22-29 (test code = 355) BLOOD UREA 15 mg/dL 7-21 NITROGEN (BEAKER) (test code = 354) CREATININE 0.57 mg/dL 0.57-1.25 Specimen slight ly (BEAKER) (test hemolyzed code = 358) GLUCOSE RANDOM 74 mg/dL 70-105 (BEAKER) (test code = 652) CALCIUM (BEAKER) 8.1 mg/dL 8.4-10.2 L (test code = 697) EGFR (BEAKER) 105 Interpretatio n of eGFR (test code = mL/min/1.73 values Stage De scription 1092) sq m Result G1 Paras l or high >=90 G2 Mildly decreased 60-89 G3a Mildl y to moderately 45-5 9 G3b Moderately to s everely 30-44 G4 Severl y decreased 15-29 G5 Kidney failure <15Reported eGF R is based on the CKD-EPI 2020 equation that d oes not use a race coefficientEsti mated GFR is not as accur ate as Creatinine Laurel benton in predicting glom erular filtration rate . Estimated GFR is not appl icable for dialysis patien ts Lending Consultant ID - [id number] 06:45:27 Test Item Value Reference Range Interpretation Comments FIBRINOGEN LEVEL (BEAKER) (test 503 mg/dl 225-434 H code = 658) [id number] 06:36:49 Test Item Value Reference Range Interpretation Comments LIPASE (BEAKER) (test code = 749) 16 U/L 8-78 Lending Consultant ID - MARCOHEPATIC FUNCTION [id number] 05:10:37 Test Item Value Reference Range Interpretation Comments TOTAL PROTEIN (BEAKER) 5.2 gm/dL 6.0-8.3 L Speci men slightly (test code = 770) hemolyzed ALBUMIN (BEAKER) (test 2.8 g/dL 3.5-5.0 L Speci men slightly code = 1145) hemolyzed BILIRUBIN TOTAL 1.7 mg/dL 0.2-1.2 H Specimen sli ghtly (BEAKER) (test code = hemoly zed 377) BILIRUBIN DIRECT 0.9 mg/dL 0.1-0.5 H Specimen sl ightly (BEAKER) (test code = hemoly zed 706) ALKALINE PHOSPHATASE 243 U/L 40-150 H (BEAKER) (test code = 346) AST (SGOT) (BEAKER) 229 U/L 5-34 H Specimen slightly (test code = 353) hemolyzed ALT (SGPT) (BEAKER) 189 U/L 6-55 H Specimen slightly (test code = 347) hemolyzed Lending Consultant ID - [id number] 05:10:36 Test Item Value Reference Range Interpretation Comments MAGNESIUM (BEAKER) 1.8 mg/dL 1.6-2.6 Specimen slightly (test code = 627) hemolyzed Lending Consultant ID - [id number] 05:10:36 Test Item Value Reference Range Interpretation Comments PHOSPHORUS (BEAKER) 1.9 mg/dL 2.3-4.7 L Specimen slightly (test code = 604) hemolyzed Lending Consultant ID - ADMINLACTIC ACID, [id number] 04:44:22 Test Item Value Reference Range Interpretation Comments LACTATE BLOOD VENOUS (2) (BEAKER) 2.29 mmol/L 0.50-2.00 H (test code = 2872) Lending Consultant ID - MARCOCBC W/PLT COUNT & AUTO [id number] 04:41:45 Test Item Value Reference Range Interpretation Comments WHITE BLOOD CELL COUNT (BEAKER) 10.7 K/ L 3.5-10.5 H (test code = 775) RED BLOOD CELL COUNT (BEAKER) 2.35 M/ L 4.63-6.08 L (test code = 761) HEMOGLOBIN (BEAKER) (test code = 6.9 GM/DL 13.7-17.5 L 410) HEMATOCRIT (BEAKER) (test code = 21.0 % 40.1-51.0 L 411) MEAN CORPUSCULAR VOLUME (BEAKER) 89 fL 79-92 (test code = 753) MEAN CORPUSCULAR HEMOGLOBIN 29.4 pg 25.7-32.2 (BEAKER) (test code = 751) MEAN CORPUSCULAR HEMOGLOBIN CONC 32.9 GM/DL 32.3-36.5 (BEAKER) (test code = 752) RED CELL DISTRIBUTION WIDTH 14.7 % 11.6-14.4 H (BEAKER) (test code = 412) PLATELET COUNT (BEAKER) (test 264 K/CU MM 150-450 code = 756) MEAN PLATELET VOLUME (BEAKER) 9.6 fL 9.4-12.4 (test code = 754) NUCLEATED RED BLOOD CELLS 0 /100 WBC 0-0 (BEAKER) (test code = 413) NEUTROPHILS RELATIVE PERCENT 69 % (BEAKER) (test code = 429) LYMPHOCYTES RELATIVE PERCENT 24 % (BEAKER) (test code = 430) MONOCYTES RELATIVE PERCENT 6 % (BEAKER) (test code = 431) EOSINOPHILS RELATIVE PERCENT 1 % (BEAKER) (test code = 432) BASOPHILS RELATIVE PERCENT 0 % (BEAKER) (test code = 437) NEUTROPHILS ABSOLUTE COUNT 7.38 K/ L 1.78-5.38 H (BEAKER) (test code = 670) LYMPHOCYTES ABSOLUTE COUNT 2.54 K/ L 1.32-3.57 (BEAKER) (test code = 414) MONOCYTES ABSOLUTE COUNT (BEAKER) 0.65 K/ L 0.30-0.82 (test code = 415) EOSINOPHILS ABSOLUTE COUNT 0.06 K/ L 0.04-0.54 (BEAKER) (test code = 416) BASOPHILS ABSOLUTE COUNT (BEAKER) 0.02 K/ L 0.01-0.08 (test code = 417) IMMATURE GRANULOCYTES-RELATIVE 0.70 % 0.00-1.00 PERCENT (BEAKER) (test code = 2801) PROTHROMBIN [id number] 04:36:39 Test Item Value Reference Range Interpretation Comments PROTIME (BEAKER) (test code = 13.2 seconds 11.9-14.2 759) INR (BEAKER) (test code = 370) 0.99 <=5.90 RECOMMENDED COUMADIN/WARFARIN INR THERAPY RANGESSTANDARD DOSE: 2.0 - 3.0 Includes: PROPHYLAXIS for venous thrombosis, systemic embolization; TREATMENT for venous thrombosis and/or pulmonary embolus.HIGH RISK: Target INR is 2.5-3.5 for patients with mechanical heart valves.POCT-GLUCOSE [id number] 22:20:27 Test Item Value Reference Range Interpretation Comments POC-GLUCOSE METER 116 mg/dL 70-110 H : TESTED A T [facility] 6720 (BEAKER) (test code = [facility], 1538) 045[address]: Lending Consultant/Techni bang ID = [id number] for YASH CEVALLOS POCT-GLUCOSE [id number] 16:41:30 Test Item Value Reference Range Interpretation Comments POC-GLUCOSE METER 145 mg/dL 70-110 H : TESTED A T [facility] 6720 (BEAKER) (test code = [facility], 1538) 19361: Lending Consultant/Techni bang ID = [id number] for TE LIONEL, HORTENCIA HEMOGLOBIN AND [id number] 14:08:46 Test Item Value Reference Range Interpretation Comments HEMOGLOBIN (BEAKER) (test code = 6.5 GM/DL 13.7-17.5 L 410) HEMATOCRIT (BEAKER) (test code = 19.1 % 40.1-51.0 L 411) Lending Consultant ID - [id number]-GLUCOSE [id number] 13:10:24 Test Item Value Reference Range Interpretation Comments POC-GLUCOSE METER 186 mg/dL 70-110 H : TESTED A T [facility] 6720 (BEAKER) (test code = [facility], 1538) 50034: Lending Consultant/Techni bang ID = [id number] for TE LIONEL, HORTENCIA XR CHEST 1 VIEW PORTABLE / [id number] 11:41:51 [facility] : 1955 Sex: MTECHNIQUE: Frontal view of the chest.INDICATION: Hemoptysis.COMPARISON: 04/10/2023.FINDINGS:LINES/TUBES: None.HEART AND MEDIASTINUM: Cardiomediastinal contour is within normallimits. LUNGS: Background of emphysematous change. Patchy left basilaropacities. Chronic scarring at the right lung apex.PLEURA: No pneumothorax. No significant pleural effusion.SOFT TISSUES AND BONES: Unremarkable.IMPRESSION:Emphysematous change. Patchy left basilar opacity which may be relatedto pulmonary hemorrhage, aspiration, or pneumonia. Follow-up toresolution is advised.Electronically Signed By: Angel Eddy04/19/2023 11:44 CDTWorkstation Name: [id number] 08:21:02 Test Item Value Reference Range Interpretation Comments POC-GLUCOSE METER 209 mg/dL 70-110 H : TESTED A T [facility] 6720 (BEAKER) (test code = [facility], 1538) 22237: Lending Consultant/Techni bang ID = [id number] for HORTENCIA [place] [facility]CTION [id number] 06:09:10 Test Item Value Reference Range Interpretation Comments TOTAL PROTEIN (BEAKER) 5.6 gm/dL 6.0-8.3 L Speci men slightly (test code = 770) hemolyzed ALBUMIN (BEAKER) (test 2.9 g/dL 3.5-5.0 L Speci men slightly code = 1145) hemolyzed BILIRUBIN TOTAL 1.9 mg/dL 0.2-1.2 H Specimen sli ghtly (BEAKER) (test code = hemoly zed 377) BILIRUBIN DIRECT 1.3 mg/dL 0.1-0.5 H Specimen sl ightly (BEAKER) (test code = hemoly zed 706) ALKALINE PHOSPHATASE 286 U/L 40-150 H (BEAKER) (test code = 346) AST (SGOT) (BEAKER) 320 U/L 5-34 H Specimen slightly (test code = 353) hemolyzed ALT (SGPT) (BEAKER) 213 U/L 6-55 H Specimen slightly (test code = 347) hemolyzed Lending Consultant ID - [id number] 06:09:09 Test Item Value Reference Range Interpretation Comments PHOSPHORUS (BEAKER) 3.6 mg/dL 2.3-4.7 Specimen slightly (test code = 604) hemolyzed Lending Consultant ID - [id number] 06:09:09 Test Item Value Reference Range Interpretation Comments TRIGLYCERIDES (BEAKER) 58 mg/dL Speci men slightly (test code = 540) hemolyzed TRIGLYCERIDE REFERENCE RANGELow Risk <150Borderline Risk 150-199High Risk 200-499Very High Risk >=500Operator ID - ADMINBASIC METABOLIC [id number] 06:09:09 Test Item Value Reference Range Interpretation Comments SODIUM (BEAKER) 134 meq/L 136-145 L (test code = 381) POTASSIUM 4.1 meq/L 3.5-5.1 Specimen slight ly (BEAKER) (test hemolyzed code = 379) CHLORIDE (BEAKER) 98 meq/L 98-107 (test code = 382) CO2 (BEAKER) 24 meq/L 22-29 (test code = 355) BLOOD UREA 9 mg/dL 7-21 NITROGEN (BEAKER) (test code = 354) CREATININE 0.61 mg/dL 0.57-1.25 Specimen slight ly (BEAKER) (test hemolyzed code = 358) GLUCOSE RANDOM 209 mg/dL 70-105 H (BEAKER) (test code = 652) CALCIUM (BEAKER) 8.4 mg/dL 8.4-10.2 (test code = 697) EGFR (BEAKER) 103 Interpretatio n of eGFR (test code = mL/min/1.73 values Stage De scription 1092) sq m Result G1 Paras l or high >=90 G2 Mildly decreased 60-89 G3a Mildl y to moderately 45-5 9 G3b Moderately to s everely 30-44 G4 Severl y decreased 15-29 G5 Kidney failure <15Reported eGF R is based on the CKD-EPI 2020 equation that d oes not use a race coefficientEsti mated GFR is not as accur ate as Creatinine Laurel bhardwaj in predicting glom erular filtration rate . Estimated GFR is not appl icable for dialysis patien ts Lending Consultant ID - [id number] 06:09:08 Test Item Value Reference Range Interpretation Comments MAGNESIUM (BEAKER) 1.7 mg/dL 1.6-2.6 Specimen slightly (test code = 627) hemolyzed Lending Consultant ID - ADMINCBC W/PLT COUNT & AUTO [id number] 05:48:23 Test Item Value Reference Range Interpretation Comments WHITE BLOOD CELL COUNT (BEAKER) 15.6 K/ L 3.5-10.5 H (test code = 775) RED BLOOD CELL COUNT (BEAKER) 2.81 M/ L 4.63-6.08 L (test code = 761) HEMOGLOBIN (BEAKER) (test code = 8.3 GM/DL 13.7-17.5 L 410) HEMATOCRIT (BEAKER) (test code = 25.4 % 40.1-51.0 L 411) MEAN CORPUSCULAR VOLUME (BEAKER) 90 fL 79-92 (test code = 753) MEAN CORPUSCULAR HEMOGLOBIN 29.5 pg 25.7-32.2 (BEAKER) (test code = 751) MEAN CORPUSCULAR HEMOGLOBIN CONC 32.7 GM/DL 32.3-36.5 (BEAKER) (test code = 752) RED CELL DISTRIBUTION WIDTH 14.2 % 11.6-14.4 (BEAKER) (test code = 412) PLATELET COUNT (BEAKER) (test 356 K/CU MM 150-450 code = 756) MEAN PLATELET VOLUME (BEAKER) 9.8 fL 9.4-12.4 (test code = 754) NUCLEATED RED BLOOD CELLS 0 /100 WBC 0-0 (BEAKER) (test code = 413) NEUTROPHILS RELATIVE PERCENT 85 % (BEAKER) (test code = 429) LYMPHOCYTES RELATIVE PERCENT 10 % (BEAKER) (test code = 430) MONOCYTES RELATIVE PERCENT 5 % (BEAKER) (test code = 431) EOSINOPHILS RELATIVE PERCENT 0 % (BEAKER) (test code = 432) BASOPHILS RELATIVE PERCENT 0 % (BEAKER) (test code = 437) NEUTROPHILS ABSOLUTE COUNT 13.23 K/ L 1.78-5.38 H (BEAKER) (test code = 670) LYMPHOCYTES ABSOLUTE COUNT 1.50 K/ L 1.32-3.57 (BEAKER) (test code = 414) MONOCYTES ABSOLUTE COUNT (BEAKER) 0.79 K/ L 0.30-0.82 (test code = 415) EOSINOPHILS ABSOLUTE COUNT 0.00 K/ L 0.04-0.54 L (BEAKER) (test code = 416) BASOPHILS ABSOLUTE COUNT (BEAKER) 0.01 K/ L 0.01-0.08 (test code = 417) IMMATURE GRANULOCYTES-RELATIVE 0.60 % 0.00-1.00 PERCENT (BEAKER) (test code = 2801) BASIC METABOLIC [id number] 22:54:02 Test Item Value Reference Range Interpretation Comments SODIUM (BEAKER) 134 meq/L 136-145 L (test code = 381) POTASSIUM 4.2 meq/L 3.5-5.1 Specimen slight ly (BEAKER) (test hemolyzed code = 379) CHLORIDE (BEAKER) 99 meq/L 98-107 (test code = 382) CO2 (BEAKER) 21 meq/L 22-29 L (test code = 355) BLOOD UREA 5 mg/dL 7-21 L NITROGEN (BEAKER) (test code = 354) CREATININE 0.57 mg/dL 0.57-1.25 Specimen slight ly (BEAKER) (test hemolyzed code = 358) GLUCOSE RANDOM 129 mg/dL 70-105 H (BEAKER) (test code = 652) CALCIUM (BEAKER) 8.7 mg/dL 8.4-10.2 (test code = 697) EGFR (BEAKER) 105 Interpretatio n of eGFR (test code = mL/min/1.73 values Stage De scription 1092) sq m Result G1 Paras l or high >=90 G2 Mildly decreased 60-89 G3a Mildl y to moderately 45-5 9 G3b Moderately to s everely 30-44 G4 Severl y decreased 15-29 G5 Kidney failure <15Reported eGF R is based on the CKD-EPI 2020 equation that d oes not use a race coefficientEsti mated GFR is not as accur ate as Creatinine Laurel bhardwaj in predicting glom erular filtration rate . Estimated GFR is not appl icable for dialysis patien ts Lending Consultant ID - ADMINCBC W/PLT COUNT & AUTO [id number] 22:35:25 Test Item Value Reference Range Interpretation Comments WHITE BLOOD CELL COUNT (BEAKER) 13.9 K/ L 3.5-10.5 H (test code = 775) RED BLOOD CELL COUNT (BEAKER) 3.51 M/ L 4.63-6.08 L (test code = 761) HEMOGLOBIN (BEAKER) (test code = 10.3 GM/DL 13.7-17.5 L 410) HEMATOCRIT (BEAKER) (test code = 31.0 % 40.1-51.0 L 411) MEAN CORPUSCULAR VOLUME (BEAKER) 88 fL 79-92 (test code = 753) MEAN CORPUSCULAR HEMOGLOBIN 29.3 pg 25.7-32.2 (BEAKER) (test code = 751) MEAN CORPUSCULAR HEMOGLOBIN CONC 33.2 GM/DL 32.3-36.5 (BEAKER) (test code = 752) RED CELL DISTRIBUTION WIDTH 14.4 % 11.6-14.4 (BEAKER) (test code = 412) PLATELET COUNT (BEAKER) (test 450 K/CU MM 150-450 code = 756) MEAN PLATELET VOLUME (BEAKER) 10.2 fL 9.4-12.4 (test code = 754) NUCLEATED RED BLOOD CELLS 0 /100 WBC 0-0 (BEAKER) (test code = 413) NEUTROPHILS RELATIVE PERCENT 87 % (BEAKER) (test code = 429) LYMPHOCYTES RELATIVE PERCENT 7 % (BEAKER) (test code = 430) MONOCYTES RELATIVE PERCENT 5 % (BEAKER) (test code = 431) EOSINOPHILS RELATIVE PERCENT 0 % (BEAKER) (test code = 432) BASOPHILS RELATIVE PERCENT 0 % (BEAKER) (test code = 437) NEUTROPHILS ABSOLUTE COUNT 12.10 K/ L 1.78-5.38 H (BEAKER) (test code = 670) LYMPHOCYTES ABSOLUTE COUNT 1.03 K/ L 1.32-3.57 L (BEAKER) (test code = 414) MONOCYTES ABSOLUTE COUNT (BEAKER) 0.65 K/ L 0.30-0.82 (test code = 415) EOSINOPHILS ABSOLUTE COUNT 0.00 K/ L 0.04-0.54 L (BEAKER) (test code = 416) BASOPHILS ABSOLUTE COUNT (BEAKER) 0.02 K/ L 0.01-0.08 (test code = 417) IMMATURE GRANULOCYTES-RELATIVE 0.40 % 0.00-1.00 PERCENT (BEAKER) (test code = 2801) POCT-GLUCOSE [id number] 13:23:24 Test Item Value Reference Range Interpretation Comments POC-GLUCOSE METER 101 mg/dL 70-110 : TESTED A T [facility] 6720 (BEAKER) (test code [facility], = 1538) 74179: Lending Consultant/Techni bang ID = [id number] for TEAGAN Whiteside PARISA POCT-GLUCOSE [id number] 07:46:19 Test Item Value Reference Range Interpretation Comments POC-GLUCOSE METER 155 mg/dL 70-110 H : TESTED A T [facility] 6720 (BEAKER) (test code [facility], = 1538) 53318: Lending Consultant/Techni bang ID = [id number] for TEAGAN Whiteside PARISA BASIC METABOLIC [id number] 06:10:39 Test Item Value Reference Range Interpretation Comments SODIUM (BEAKER) 138 meq/L 136-145 (test code = 381) POTASSIUM 3.6 meq/L 3.5-5.1 (BEAKER) (test code = 379) CHLORIDE (BEAKER) 104 meq/L 98-107 (test code = 382) CO2 (BEAKER) 23 meq/L 22-29 (test code = 355) BLOOD UREA 6 mg/dL 7-21 L NITROGEN (BEAKER) (test code = 354) CREATININE 0.55 mg/dL 0.57-1.25 L (BEAKER) (test code = 358) GLUCOSE RANDOM 39 mg/dL 70-105 LL (BEAKER) (test code = 652) CALCIUM (BEAKER) 9.0 mg/dL 8.4-10.2 (test code = 697) EGFR (BEAKER) 106 Interpretatio n of eGFR (test code = mL/min/1.73 values Stage De scription 1092) sq m Result G1 Paras l or high >=90 G2 Mildly decreased 60-89 G3a Mildl y to moderately 45-5 9 G3b Moderately to s everely 30-44 G4 Severl y decreased 15-29 G5 Kidney failure <15Reported eGF R is based on the CKD-EPI 2021 equation that d oes not use a race coefficientEsti mated GFR is not as accur ate as Creatinine Laurel bhardwaj in predicting glom erular filtration rate . Estimated GFR is not appl icable for dialysis patien ts Lending Consultant ID - MARCOHEPATIC FUNCTION [id number] 06:09:28 Test Item Value Reference Range Interpretation Comments TOTAL PROTEIN (BEAKER) (test code = 6.1 gm/dL 6.0-8.3 770) ALBUMIN (BEAKER) (test code = 1145) 3.2 g/dL 3.5-5.0 L BILIRUBIN TOTAL (BEAKER) (test code 0.3 mg/dL 0.2-1.2 = 377) BILIRUBIN DIRECT (BEAKER) (test 0.2 mg/dL 0.1-0.5 code = 706) ALKALINE PHOSPHATASE (BEAKER) (test 53 U/L 40-150 code = 346) AST (SGOT) (BEAKER) (test code = 19 U/L 5-34 353) ALT (SGPT) (BEAKER) (test code = 17 U/L 6-55 347) Lending Consultant ID - MARCOCBC W/PLT COUNT & AUTO [id number] 05:56:23 Test Item Value Reference Range Interpretation Comments WHITE BLOOD CELL COUNT (BEAKER) 9.1 K/ L 3.5-10.5 (test code = 775) RED BLOOD CELL COUNT (BEAKER) 3.69 M/ L 4.63-6.08 L (test code = 761) HEMOGLOBIN (BEAKER) (test code = 10.8 GM/DL 13.7-17.5 L 410) HEMATOCRIT (BEAKER) (test code = 33.5 % 40.1-51.0 L 411) MEAN CORPUSCULAR VOLUME (BEAKER) 91 fL 79-92 (test code = 753) MEAN CORPUSCULAR HEMOGLOBIN 29.3 pg 25.7-32.2 (BEAKER) (test code = 751) MEAN CORPUSCULAR HEMOGLOBIN CONC 32.2 GM/DL 32.3-36.5 L (BEAKER) (test code = 752) RED CELL DISTRIBUTION WIDTH 14.2 % 11.6-14.4 (BEAKER) (test code = 412) PLATELET COUNT (BEAKER) (test 311 K/CU MM 150-450 code = 756) MEAN PLATELET VOLUME (BEAKER) 9.7 fL 9.4-12.4 (test code = 754) NUCLEATED RED BLOOD CELLS 0 /100 WBC 0-0 (BEAKER) (test code = 413) NEUTROPHILS RELATIVE PERCENT 55 % (BEAKER) (test code = 429) LYMPHOCYTES RELATIVE PERCENT 35 % (BEAKER) (test code = 430) MONOCYTES RELATIVE PERCENT 7 % (BEAKER) (test code = 431) EOSINOPHILS RELATIVE PERCENT 2 % (BEAKER) (test code = 432) BASOPHILS RELATIVE PERCENT 1 % (BEAKER) (test code = 437) NEUTROPHILS ABSOLUTE COUNT 5.02 K/ L 1.78-5.38 (BEAKER) (test code = 670) LYMPHOCYTES ABSOLUTE COUNT 3.20 K/ L 1.32-3.57 (BEAKER) (test code = 414) MONOCYTES ABSOLUTE COUNT (BEAKER) 0.66 K/ L 0.30-0.82 (test code = 415) EOSINOPHILS ABSOLUTE COUNT 0.18 K/ L 0.04-0.54 (BEAKER) (test code = 416) BASOPHILS ABSOLUTE COUNT (BEAKER) 0.05 K/ L 0.01-0.08 (test code = 417) IMMATURE GRANULOCYTES-RELATIVE 0.20 % 0.00-1.00 PERCENT (BEAKER) (test code = 2801) HEPATIC FUNCTION [id number] 06:24:51 Test Item Value Reference Range Interpretation Comments TOTAL PROTEIN (BEAKER) (test code = 5.6 gm/dL 6.0-8.3 L 770) ALBUMIN (BEAKER) (test code = 1145) 3.0 g/dL 3.5-5.0 L BILIRUBIN TOTAL (BEAKER) (test code 0.2 mg/dL 0.2-1.2 = 377) BILIRUBIN DIRECT (BEAKER) (test 0.1 mg/dL 0.1-0.5 code = 706) ALKALINE PHOSPHATASE (BEAKER) (test 60 U/L 40-150 code = 346) AST (SGOT) (BEAKER) (test code = 21 U/L 5-34 353) ALT (SGPT) (BEAKER) (test code = 17 U/L 6-55 347) Lending Consultant ID - emBASIC METABOLIC [id number] 06:24:50 Test Item Value Reference Range Interpretation Comments SODIUM (BEAKER) 136 meq/L 136-145 (test code = 381) POTASSIUM 3.7 meq/L 3.5-5.1 (BEAKER) (test code = 379) CHLORIDE (BEAKER) 104 meq/L 98-107 (test code = 382) CO2 (BEAKER) 27 meq/L 22-29 (test code = 355) BLOOD UREA 5 mg/dL 7-21 L NITROGEN (BEAKER) (test code = 354) CREATININE 0.56 mg/dL 0.57-1.25 L (BEAKER) (test code = 358) GLUCOSE RANDOM 78 mg/dL 70-105 (BEAKER) (test code = 652) CALCIUM (BEAKER) 8.6 mg/dL 8.4-10.2 (test code = 697) EGFR (BEAKER) 106 Interpretatio n of eGFR (test code = mL/min/1.73 values Stage De scription 1092) sq m Result G1 Paras l or high >=90 G2 Mildly decreased 60-89 G3a Mildl y to moderately 45-5 9 G3b Moderately to s everely 30-44 G4 Severl y decreased 15-29 G5 Kidney failure <15Reported eGF R is based on the CKD-EPI 2020 equation that d oes not use a race coefficientEsti mated GFR is not as accur ate as Creatinine Laurel benton in predicting glom erular filtration rate . Estimated GFR is not appl icable for dialysis patien ts Lending Consultant ID - emCBC W/PLT COUNT & AUTO [id number] 05:32:31 Test Item Value Reference Range Interpretation Comments WHITE BLOOD CELL COUNT (BEAKER) 8.3 K/ L 3.5-10.5 (test code = 775) RED BLOOD CELL COUNT (BEAKER) 3.87 M/ L 4.63-6.08 L (test code = 761) HEMOGLOBIN (BEAKER) (test code = 11.2 GM/DL 13.7-17.5 L 410) HEMATOCRIT (BEAKER) (test code = 34.9 % 40.1-51.0 L 411) MEAN CORPUSCULAR VOLUME (BEAKER) 90 fL 79-92 (test code = 753) MEAN CORPUSCULAR HEMOGLOBIN 28.9 pg 25.7-32.2 (BEAKER) (test code = 751) MEAN CORPUSCULAR HEMOGLOBIN CONC 32.1 GM/DL 32.3-36.5 L (BEAKER) (test code = 752) RED CELL DISTRIBUTION WIDTH 14.3 % 11.6-14.4 (BEAKER) (test code = 412) PLATELET COUNT (BEAKER) (test 280 K/CU MM 150-450 code = 756) MEAN PLATELET VOLUME (BEAKER) 9.3 fL 9.4-12.4 L (test code = 754) NUCLEATED RED BLOOD CELLS 0 /100 WBC 0-0 (BEAKER) (test code = 413) NEUTROPHILS RELATIVE PERCENT 63 % (BEAKER) (test code = 429) LYMPHOCYTES RELATIVE PERCENT 25 % (BEAKER) (test code = 430) MONOCYTES RELATIVE PERCENT 10 % (BEAKER) (test code = 431) EOSINOPHILS RELATIVE PERCENT 1 % (BEAKER) (test code = 432) BASOPHILS RELATIVE PERCENT 0 % (BEAKER) (test code = 437) NEUTROPHILS ABSOLUTE COUNT 5.22 K/ L 1.78-5.38 (BEAKER) (test code = 670) LYMPHOCYTES ABSOLUTE COUNT 2.11 K/ L 1.32-3.57 (BEAKER) (test code = 414) MONOCYTES ABSOLUTE COUNT (BEAKER) 0.83 K/ L 0.30-0.82 H (test code = 415) EOSINOPHILS ABSOLUTE COUNT 0.12 K/ L 0.04-0.54 (BEAKER) (test code = 416) BASOPHILS ABSOLUTE COUNT (BEAKER) 0.03 K/ L 0.01-0.08 (test code = 417) IMMATURE GRANULOCYTES-RELATIVE 0.20 % 0.00-1.00 PERCENT (BEAKER) (test code = 2801) CT ABDOMEN/PELVIS WITH IV [id number] 09:21:55 [facility] : 1955 Sex: MEXAMINATION: CT ABDOMEN/PELVIS WITH IV CONTRAST.INDICATION: 67-year-old male with abdominal pain.COMPARISON: MRI abdomen dated 04/11/2023. Outside CT chest, abdomen, andpelvis dated 04/08/2023.TECHNIQUE:Helical CT imaging of the abdomen and pelvis was performed from thediaphragms to the lesser trochanters after the administration ofintravenous contrast material. Multiplanar reconstructions were createdby a technologist. One or more of the following dose reductiontechniques were used:* Automated exposure control* Adjustment of the mA and/ or kV according to patient size* Use of iterative reconstruction techniqueTotal DLP (mGy-cm): 402Intravenous contrast: Not documentedDICOM format image data are av ailable to non-affiliated externalhealthcare facilities or entities on a secure, media free, reciprocallysearchable basis with patient authorization for at least a 12 monthperiod after the study.FINDINGS:LOWER CHEST: The visualized heart is unremarkable. Severe emphysematouschanges. No pleural effusion.LIVER: Liver is of normal size, morphology, and attenuation. Nosuspicious hepatic lesions. Portal and hepatic veins are patent.BILIARY SYSTEM: Gallbladder is moderately distended. No evidence ofintrahepatic or extrahepatic biliary dilation.SPLEEN: Spleen is of normal size. No suspicious splenic lesions.PANCREAS: Ill-definition of the pancreatic head with surroundingstranding. The main pancreatic duct is mildly dilated, measuring up to 5mm in the pancreatic body No suspicious pancreatic lesions.ADRENALS: No focal adrenal lesions.. URINARY SYSTEM: Kidneys are grossly symmetric. No suspicious renallesions. No hydronephrosis or hydroureter. Bladder is unremarkable.REPRODUCTIVE SYSTEM: Reproductive organs are unremarkable.GASTROINTESTINAL SYSTEM: Stomach is unremarkable. Small bowel is normalin caliber. Two hemostatic clips are noted at the ampulla. Colon isunremarkable. Appendix is visualized and appears normal.VASCULAR: Abdominal aorta is of normal course and caliber. Mildcalcified atherosclerotic disease.LYMPHATICS: No pathologic lymphadenopathy.PERITONEUM: Mild ascites.SOFT TISSUES/ BONES: Soft tissues are unremarkable. Moderatedegenerative changes of the visualized spine. No aggressive osseouslesions.IMPRESSION:1. Findings consistent with acute interstitial pancreatitis with milddilatation of the pancreatic duct. No organized peripancreatic fluidcollection is identified at this time.2. Gallbladder is moderately distended.3. Mild ascites.4. Incidental note of severe emphysema.Electronically Signed By: Raj Farooq04/16/2023 09:52 CDTWorkstation Name: [id number] 02:43:07 Test Item Value Reference Range Interpretation Comments LIPASE (BEAKER) (test code = 749) > U/L 8-78 H Lending Consultant ID - BSHEPATIC FUNCTION [id number] 02:35:37 Test Item Value Reference Range Interpretation Comments TOTAL PROTEIN (BEAKER) (test code = 6.4 gm/dL 6.0-8.3 770) ALBUMIN (BEAKER) (test code = 1145) 3.4 g/dL 3.5-5.0 L BILIRUBIN TOTAL (BEAKER) (test code 0.3 mg/dL 0.2-1.2 = 377) BILIRUBIN DIRECT (BEAKER) (test 0.1 mg/dL 0.1-0.5 code = 706) ALKALINE PHOSPHATASE (BEAKER) (test 65 U/L 40-150 code = 346) AST (SGOT) (BEAKER) (test code = 20 U/L 5-34 353) ALT (SGPT) (BEAKER) (test code = 18 U/L 6-55 347) Lending Consultant ID - BSBASIC METABOLIC [id number] 02:35:36 Test Item Value Reference Range Interpretation Comments SODIUM (BEAKER) 136 meq/L 136-145 (test code = 381) POTASSIUM 3.8 meq/L 3.5-5.1 (BEAKER) (test code = 379) CHLORIDE (BEAKER) 102 meq/L 98-107 (test code = 382) CO2 (BEAKER) 23 meq/L 22-29 (test code = 355) BLOOD UREA 6 mg/dL 7-21 L NITROGEN (BEAKER) (test code = 354) CREATININE 0.62 mg/dL 0.57-1.25 (BEAKER) (test code = 358) GLUCOSE RANDOM 101 mg/dL 70-105 (BEAKER) (test code = 652) CALCIUM (BEAKER) 8.9 mg/dL 8.4-10.2 (test code = 697) EGFR (BEAKER) 103 Interpretatio n of eGFR (test code = mL/min/1.73 values Stage De scription 1092) sq m Result G1 Paras l or high >=90 G2 Mildly decreased 60-89 G3a Mildl y to moderately 45-5 9 G3b Moderately to s everely 30-44 G4 Severl y decreased 15-29 G5 Kidney failure <15Reported eGF R is based on the CKD-EPI 2020 equation that d oes not use a race coefficientEsti mated GFR is not as accur ate as Creatinine Laurel benton in predicting glom erular filtration rate . Estimated GFR is not appl icable for dialysis patien ts Lending Consultant ID - [id number] (HEMOGRAM ONLY)2023-04-16 02:09:10 Test Item Value Reference Range Interpretation Comments WHITE BLOOD CELL COUNT (BEAKER) 9.0 K/ L 3.5-10.5 (test code = 775) RED BLOOD CELL COUNT (BEAKER) 4.18 M/ L 4.63-6.08 L (test code = 761) HEMOGLOBIN (BEAKER) (test code = 12.0 GM/DL 13.7-17.5 L 410) HEMATOCRIT (BEAKER) (test code = 37.8 % 40.1-51.0 L 411) MEAN CORPUSCULAR VOLUME (BEAKER) 90 fL 79-92 (test code = 753) MEAN CORPUSCULAR HEMOGLOBIN 28.7 pg 25.7-32.2 (BEAKER) (test code = 751) MEAN CORPUSCULAR HEMOGLOBIN CONC 31.7 GM/DL 32.3-36.5 L (BEAKER) (test code = 752) RED CELL DISTRIBUTION WIDTH 14.3 % 11.6-14.4 (BEAKER) (test code = 412) PLATELET COUNT (BEAKER) (test 279 K/CU MM 150-450 code = 756) MEAN PLATELET VOLUME (BEAKER) 9.1 fL 9.4-12.4 L (test code = 754) NUCLEATED RED BLOOD CELLS 0 /100 WBC 0-0 (BEAKER) (test code = 413) FL [id number] 16:02:32 [facility] : 1955 Sex: MThis is a non- reportable study with no Radiologist dictation. Please refer to your PACS to review images, or Doc Flowsheets for documentation on studies without images. BASIC METABOLIC [id number] 08:58:39 Test Item Value Reference Range Interpretation Comments SODIUM (BEAKER) 137 meq/L 136-145 (test code = 381) POTASSIUM 4.1 meq/L 3.5-5.1 Specimen slight ly (BEAKER) (test hemolyzed code = 379) CHLORIDE (BEAKER) 104 meq/L 98-107 (test code = 382) CO2 (BEAKER) 30 meq/L 22-29 H (test code = 355) BLOOD UREA 6 mg/dL 7-21 L NITROGEN (BEAKER) (test code = 354) CREATININE 0.63 mg/dL 0.57-1.25 Specimen slight ly (BEAKER) (test hemolyzed code = 358) GLUCOSE RANDOM 83 mg/dL 70-105 (BEAKER) (test code = 652) CALCIUM (BEAKER) 8.7 mg/dL 8.4-10.2 (test code = 697) EGFR (BEAKER) 103 Interpretatio n of eGFR (test code = mL/min/1.73 values Stage De scription 1092) sq m Result G1 Paras l or high >=90 G2 Mildly decreased 60-89 G3a Mildl y to moderately 45-5 9 G3b Moderately to s everely 30-44 G4 Severl y decreased 15-29 G5 Kidne y failure <15Reported eGF R is based on the CKD-EPI 2021 equation that d oes not use a race coefficientEsti mated GFR is not as accur ate as Creatinine Laurel benton in predicting glom erular filtration rate . Estimated GFR is not appl icable for dialysis patien ts Lending Consultant ID - bcCBC W/PLT COUNT & AUTO [id number] 08:01:20 Test Item Value Reference Range Interpretation Comments WHITE BLOOD CELL COUNT (BEAKER) 7.1 K/ L 3.5-10.5 (test code = 775) RED BLOOD CELL COUNT (BEAKER) 3.76 M/ L 4.63-6.08 L (test code = 761) HEMOGLOBIN (BEAKER) (test code = 11.2 GM/DL 13.7-17.5 L 410) HEMATOCRIT (BEAKER) (test code = 34.9 % 40.1-51.0 L 411) MEAN CORPUSCULAR VOLUME (BEAKER) 93 fL 79-92 H (test code = 753) MEAN CORPUSCULAR HEMOGLOBIN 29.8 pg 25.7-32.2 (BEAKER) (test code = 751) MEAN CORPUSCULAR HEMOGLOBIN CONC 32.1 GM/DL 32.3-36.5 L (BEAKER) (test code = 752) RED CELL DISTRIBUTION WIDTH 14.5 % 11.6-14.4 H (BEAKER) (test code = 412) PLATELET COUNT (BEAKER) (test 215 K/CU MM 150-450 code = 756) MEAN PLATELET VOLUME (BEAKER) 9.4 fL 9.4-12.4 (test code = 754) NUCLEATED RED BLOOD CELLS 0 /100 WBC 0-0 (BEAKER) (test code = 413) NEUTROPHILS RELATIVE PERCENT 60 % (BEAKER) (test code = 429) LYMPHOCYTES RELATIVE PERCENT 27 % (BEAKER) (test code = 430) MONOCYTES RELATIVE PERCENT 9 % (BEAKER) (test code = 431) EOSINOPHILS RELATIVE PERCENT 3 % (BEAKER) (test code = 432) BASOPHILS RELATIVE PERCENT 0 % (BEAKER) (test code = 437) NEUTROPHILS ABSOLUTE COUNT 4.23 K/ L 1.78-5.38 (BEAKER) (test code = 670) LYMPHOCYTES ABSOLUTE COUNT 1.91 K/ L 1.32-3.57 (BEAKER) (test code = 414) MONOCYTES ABSOLUTE COUNT (BEAKER) 0.65 K/ L 0.30-0.82 (test code = 415) EOSINOPHILS ABSOLUTE COUNT 0.23 K/ L 0.04-0.54 (BEAKER) (test code = 416) BASOPHILS ABSOLUTE COUNT (BEAKER) 0.03 K/ L 0.01-0.08 (test code = 417) IMMATURE GRANULOCYTES-RELATIVE 0.40 % 0.00-1.00 PERCENT (BEAKER) (test code = 2801) BASIC METABOLIC [id number] 05:32:17 Test Item Value Reference Range Interpretation Comments SODIUM (BEAKER) 140 meq/L 136-145 (test code = 381) POTASSIUM 4.1 meq/L 3.5-5.1 (BEAKER) (test code = 379) CHLORIDE (BEAKER) 106 meq/L 98-107 (test code = 382) CO2 (BEAKER) 28 meq/L 22-29 (test code = 355) BLOOD UREA 3 mg/dL 7-21 L NITROGEN (BEAKER) (test code = 354) CREATININE 0.67 mg/dL 0.57-1.25 (BEAKER) (test code = 358) GLUCOSE RANDOM 76 mg/dL 70-105 (BEAKER) (test code = 652) CALCIUM (BEAKER) 8.5 mg/dL 8.4-10.2 (test code = 697) EGFR (BEAKER) 101 Interpretatio n of eGFR (test code = mL/min/1.73 values Stage De scription 1092) sq m Result G1 Paras l or high >=90 G2 Mildly decreased 60-89 G3a Mildl y to moderately 45-5 9 G3b Moderately to s everely 30-44 G4 Severl y decreased 15-29 G5 Kidney failure <15Reported eGF R is based on the CKD-EPI 2020 equation that d oes not use a race coefficientEsti mated GFR is not as accur ate as Creatinine Laurel benton in predicting glom erular filtration rate . Estimated GFR is not appl icable for dialysis patien ts Lending Consultant ID - [id number] 05:32:17 Test Item Value Reference Range Interpretation Comments MAGNESIUM (BEAKER) (test code = 1.7 mg/dL 1.6-2.6 627) Lending Consultant ID - MARCOMR ABDOMEN WITH & WITHOUT IV [id number] 11:13:10 [facility] : 1955 Sex: MTECHNIQUE: MRI of the abdomen WITHOUT and WITH intravenous contrast.;MRCPINDICATION: Dilated pancreatic duct.COMPARISON: CT abdomen and pelvis performed on 04/08/2023.FINDINGS:LOWER THORAX: Unremarkable.LIVER: No cirrhosis or hepatic steatosis. No focal hepatic lesion. BILIARY: Gallbladder is moderately distended.. No biliary ductaldilatation or filling defect.SPLEEN: No splenomegaly.PANCREAS: No pancreatic mass is appreciated. Mild diffuse pancreaticduct dilation..ADRENALS: No adrenal nodule.KIDNEYS/URETERS: No hydronephrosis or mass.PERITONEUM/RETROPERITONEUM: No free fluid.LYMPH NODES: No lymphadenopathy.VESSELS: Unremarkable.GI TRACT: No distention or wall thickening.BONES AND SOFT TISSUES: Unremarkable.IMPRESSION:1. No evidence of choledocholithiasis or pancreatic mass.2. Mild diffuse pancreatic duct dilation.3. Moderate gallbladder distention. No definite cholelithiasis.Electronically Signed By: Stevo Jefferson MD04/12/2023 11:15 CDTWorkstation Name: [id number] 05:48:35 Test Item Value Reference Range Interpretation Comments MAGNESIUM (BEAKER) (test code = 1.8 mg/dL 1.6-2.6 627) Lending Consultant ID - aditya bBASIC METABOLIC [id number] 05:48:34 Test Item Value Reference Range Interpretation Comments SODIUM (BEAKER) 137 meq/L 136-145 (test code = 381) POTASSIUM 3.8 meq/L 3.5-5.1 (BEAKER) (test code = 379) CHLORIDE (BEAKER) 105 meq/L 98-107 (test code = 382) CO2 (BEAKER) 24 meq/L 22-29 (test code = 355) BLOOD UREA 2 mg/dL 7-21 L NITROGEN (BEAKER) (test code = 354) CREATININE 0.64 mg/dL 0.57-1.25 (BEAKER) (test code = 358) GLUCOSE RANDOM 89 mg/dL 70-105 (BEAKER) (test code = 652) CALCIUM (BEAKER) 8.5 mg/dL 8.4-10.2 (test code = 697) EGFR (BEAKER) 102 Interpretatio n of eGFR (test code = mL/min/1.73 values Stage De scription 1092) sq m Result G1 Paras l or high >=90 G2 Mildly decreased 60-89 G3a Mildl y to moderately 45-5 9 G3b Moderately to s everely 30-44 G4 Severl y decreased 15-29 G5 Kidney failure <15Reported eGF R is based on the CKD-EPI 2021 equation that d oes not use a race coefficientEsti mated GFR is not as accur ate as Creatinine Laurel benton in predicting glom erular filtration rate . Estimated GFR is not appl icable for dialysis patien ts Lending Consultant ID - aditya [id number] 07:06:22 Test Item Value Reference Range Interpretation Comments LIPASE (BEAKER) (test code = 749) 12 U/L 8-78 Lending Consultant ID - MARCOCOMPREHENSIVE METABOLIC [id number] 07:06:21 Test Item Value Reference Range Interpretation Comments TOTAL PROTEIN 5.6 gm/dL 6.0-8.3 L (BEAKER) (test code = 770) ALBUMIN (BEAKER) 3.1 g/dL 3.5-5.0 L (test code = 1145) ALKALINE 51 U/L 40-150 PHOSPHATASE (BEAKER) (test code = 346) BILIRUBIN TOTAL 0.3 mg/dL 0.2-1.2 (BEAKER) (test code = 377) SODIUM (BEAKER) 140 meq/L 136-145 (test code = 381) POTASSIUM (BEAKER) 3.2 meq/L 3.5-5.1 L (test code = 379) CHLORIDE (BEAKER) 105 meq/L 98-107 (test code = 382) CO2 (BEAKER) (test 30 meq/L 22-29 H code = 355) BLOOD UREA 3 mg/dL 7-21 L NITROGEN (BEAKER) (test code = 354) CREATININE 0.63 mg/dL 0.57-1.25 (BEAKER) (test code = 358) GLUCOSE RANDOM 71 mg/dL 70-105 (BEAKER) (test code = 652) CALCIUM (BEAKER) 8.5 mg/dL 8.4-10.2 (test code = 697) AST (SGOT) 33 U/L 5-34 (BEAKER) (test code = 353) ALT (SGPT) 36 U/L 6-55 (BEAKER) (test code = 347) EGFR (BEAKER) 103 Interpretatio n of eGFR (test code = 1092) mL/min/1.[address] age Description sq m Result G1 Paras l or high >=90 G2 Mildly decreased 60-89 G3a Mildl y to moderately 45-5 9 G3b Moderately to s everely 30-44 G4 Severl y decreased 15-29 G5 Kidney failure <15Reported eGF R is based on the CKD-EPI 2020 equation that d oes not use a race coefficientEsti mated GFR is not as accur ate as Creatinine Laurel benton in predicting glom erular filtration rate . Estimated GFR is not appl icable for dialysis patien ts Lending Consultant ID - [id number] 07:06:21 Test Item Value Reference Range Interpretation Comments MAGNESIUM (BEAKER) (test code = 1.5 mg/dL 1.6-2.6 L 627) Lending Consultant ID - MARCOXR CHEST 2 [id number] 06:37:16 [facility] : 1955 Sex: MINDICATION: preop; has hx of COPD and lung cancerCOMPARISON: NoneTECHNIQUE: AP and lateral view of the chest.FINDINGS: Lungs and pleura: Presumed scarring within the right lung apex, whichwould be better evaluated with CT. Background emphysematous changes.Heart and mediastinum: Normal heart size. Unremarkable mediastinalcontours.Osseous structures: No acute abnormality.Other: None.IMPRESSION:No focalpneumonia. Background changes of COPD. Given patient's historyof lung cancer, referral to outside institution staging examinations issuggested to evaluate for residual/recurrent disease.Electronically Signed By: Evelyn Chen04/11/2023 06:39 CDTWorkstation Name: [id number] METABOLIC [id number] 06:58:49 Test Item Value Reference Range Interpretation Comments TOTAL PROTEIN 6.2 gm/dL 6.0-8.3 (BEAKER) (test code = 770) ALBUMIN (BEAKER) 3.3 g/dL 3.5-5.0 L (test code = 1145) ALKALINE 68 U/L 40-150 PHOSPHATASE (BEAKER) (test code = 346) BILIRUBIN TOTAL 0.4 mg/dL 0.2-1.2 (BEAKER) (test code = 377) SODIUM (BEAKER) 137 meq/L 136-145 (test code = 381) POTASSIUM (BEAKER) 3.7 meq/L 3.5-5.1 (test code = 379) CHLORIDE (BEAKER) 99 meq/L 98-107 (test code = 382) CO2 (BEAKER) (test 22 meq/L 22-29 code = 355) BLOOD UREA 5 mg/dL 7-21 L NITROGEN (BEAKER) (test code = 354) CREATININE 0.65 mg/dL 0.57-1.25 (BEAKER) (test code = 358) GLUCOSE RANDOM 48 mg/dL 70-105 L (BEAKER) (test code = 652) CALCIUM (BEAKER) 8.9 mg/dL 8.4-10.2 (test code = 697) AST (SGOT) 59 U/L 5-34 H (BEAKER) (test code = 353) ALT (SGPT) 45 U/L 6-55 (BEAKER) (test code = 347) EGFR (BEAKER) 102 Interpretatio n of eGFR (test code = 1092) mL/min/1.[address] age Description sq m Result G1 Paras l or high >=90 G2 Mildly decreased 60-89 G3a Mildl y to moderately 45-5 9 G3b Moderately to s everely 30-44 G4 Severl y decreased 15-29 G5 Kidney failure <15Reported eGF R is based on the CKD-EPI 202 equation that d oes not use a race coefficientEsti mated GFR is not as accur ate as Creatinine Laurel bhardwaj in predicting glom erular filtration rate . Estimated GFR is not appl icable for dialysis patien ts Lending Consultant ID - [id number] 06:58:49 Test Item Value Reference Range Interpretation Comments MAGNESIUM (BEAKER) (test code = 1.5 mg/dL 1.6-2.6 L 627) Lending Consultant ID - ADMINCBC (HEMOGRAM ONLY)2023-04-10 06:24:13 Test Item Value Reference Range Interpretation Comments WHITE BLOOD CELL COUNT (BEAKER) 7.7 K/ L 3.5-10.5 (test code = 775) RED BLOOD CELL COUNT (BEAKER) 3.95 M/ L 4.63-6.08 L (test code = 761) HEMOGLOBIN (BEAKER) (test code = 11.8 GM/DL 13.7-17.5 L 410) HEMATOCRIT (BEAKER) (test code = 36.8 % 40.1-51.0 L 411) MEAN CORPUSCULAR VOLUME (BEAKER) 93 fL 79-92 H (test code = 753) MEAN CORPUSCULAR HEMOGLOBIN 29.9 pg 25.7-32.2 (BEAKER) (test code = 751) MEAN CORPUSCULAR HEMOGLOBIN CONC 32.1 GM/DL 32.3-36.5 L (BEAKER) (test code = 752) RED CELL DISTRIBUTION WIDTH 14.3 % 11.6-14.4 (BEAKER) (test code = 412) PLATELET COUNT (BEAKER) (test 150 K/CU MM 150-450 code = 756) MEAN PLATELET VOLUME (BEAKER) 9.9 fL 9.4-12.4 (test code = 754) NUCLEATED RED BLOOD CELLS 0 /100 WBC 0-0 (BEAKER) (test code = 413) BASIC METABOLIC [id number] 05:03:35 Test Item Value Reference Range Interpretation Comments SODIUM (BEAKER) 136 meq/L 136-145 (test code = 381) POTASSIUM 3.7 meq/L 3.5-5.1 (BEAKER) (test code = 379) CHLORIDE (BEAKER) 102 meq/L 98-107 (test code = 382) CO2 (BEAKER) 27 meq/L 22-29 (test code = 355) BLOOD UREA 5 mg/dL 7-21 L NITROGEN (BEAKER) (test code = 354) CREATININE 0.67 mg/dL 0.57-1.25 (BEAKER) (test code = 358) GLUCOSE RANDOM 77 mg/dL 70-105 (BEAKER) (test code = 652) CALCIUM (BEAKER) 8.4 mg/dL 8.4-10.2 (test code = 697) EGFR (BEAKER) 101 Interpretatio n of eGFR (test code = mL/min/1.73 values Stage De scription 1092) sq m Result G1 Paras l or high >=90 G2 Mildly decreased 60-89 G3a Mildl y to moderately 45-5 9 G3b Moderately to s everely 30-44 G4 Severl y decreased 15-29 G5 Kidney failure <15Reported eGF R is based on the CKD-EPI 202 equation that d oes not use a race coefficientEsti mated GFR is not as accur ate as Creatinine Laurel benton in predicting glom erular filtration rate . Estimated GFR is not appl icable for dialysis patien ts Lending Consultant ID - JAVAD WCBC W/PLT COUNT & AUTO [id number] 04:58:21 Test Item Value Reference Range Interpretation Comments WHITE BLOOD CELL COUNT (BEAKER) 7.0 K/ L 3.5-10.5 (test code = 775) RED BLOOD CELL COUNT (BEAKER) 3.56 M/ L 4.63-6.08 L (test code = 761) HEMOGLOBIN (BEAKER) (test code = 10.6 GM/DL 13.7-17.5 L 410) HEMATOCRIT (BEAKER) (test code = 33.2 % 40.1-51.0 L 411) MEAN CORPUSCULAR VOLUME (BEAKER) 93 fL 79-92 H (test code = 753) MEAN CORPUSCULAR HEMOGLOBIN 29.8 pg 25.7-32.2 (BEAKER) (test code = 751) MEAN CORPUSCULAR HEMOGLOBIN CONC 31.9 GM/DL 32.3-36.5 L (BEAKER) (test code = 752) RED CELL DISTRIBUTION WIDTH 14.7 % 11.6-14.4 H (BEAKER) (test code = 412) PLATELET COUNT (BEAKER) (test 138 K/CU MM 150-450 L code = 756) MEAN PLATELET VOLUME (BEAKER) 9.7 fL 9.4-12.4 (test code = 754) NUCLEATED RED BLOOD CELLS 0 /100 WBC 0-0 (BEAKER) (test code = 413) NEUTROPHILS RELATIVE PERCENT 58 % (BEAKER) (test code = 429) LYMPHOCYTES RELATIVE PERCENT 30 % (BEAKER) (test code = 430) MONOCYTES RELATIVE PERCENT 6 % (BEAKER) (test code = 431) EOSINOPHILS RELATIVE PERCENT 5 % (BEAKER) (test code = 432) BASOPHILS RELATIVE PERCENT 0 % (BEAKER) (test code = 437) NEUTROPHILS ABSOLUTE COUNT 4.08 K/ L 1.78-5.38 (BEAKER) (test code = 670) LYMPHOCYTES ABSOLUTE COUNT 2.12 K/ L 1.32-3.57 (BEAKER) (test code = 414) MONOCYTES ABSOLUTE COUNT (BEAKER) 0.42 K/ L 0.30-0.82 (test code = 415) EOSINOPHILS ABSOLUTE COUNT 0.33 K/ L 0.04-0.54 (BEAKER) (test code = 416) BASOPHILS ABSOLUTE COUNT (BEAKER) 0.03 K/ L 0.01-0.08 (test code = 417) IMMATURE GRANULOCYTES-RELATIVE 0.60 % 0.00-1.00 PERCENT (BEAKER) (test code = 2801) HIGH SENSITIVITY TROPONIN [id number] 04:54:40 Test Item Value Reference Range Interpretation Comments HIGH SENSITIVITY TROPONIN I (test < pg/ml <=35 code = 6728730) Lending Consultant ID - JAVAD WThe SAFETY FIRE BOSS STAT High Sensitivity Troponin-I results should be used in conjunction with other diagnostic information such as ECG, clinical observations and information, and patient symptoms to aid in the diagnosis of MD.HIGH SENSITIVITY TROPONIN [id number] 23:53:43 Test Item Value Reference Range Interpretation Comments HIGH SENSITIVITY TROPONIN I (test < pg/ml <=35 code = 2698602) Lending Consultant ID - NATASHAThe SAFETY FIRE BOSS STAT High Sensitivity Troponin-I results should be used in conjunction with other diagnostic information such as ECG, clinical observations and information, and patientsymptoms to aid in the diagnosis of MD. US ABDOMEN [id number] 21:20:19 [facility] : 1955 Sex: MEXAM/TECHNIQUE: Limited ultrasound of the abdomen, right upper quadrant.INDICATION: acute cholecystitisCOMPARISON: CT body from 04/08/2023.FINDINGS: Liver: The liver is normal in echotexture and morphology, measuring 12.4cm, without focal mass. The main portal vein is patent measuring 10 mm.Biliary: No cholelithiasis is identified. The gallbladder is distendedwith pericholecystic fluid. The common bile duct measures 8 mm.Pancreas: The visualized pancreas is unremarkable in appearance.Right kidney: The right kidney measures 8.0 x 3.3 x 1.2 cm. Nohydronephrosis or focal mass.IMPRESSION:Cholelithiasisis absent, though the presence of sonographic Armendariz signand distention raises concern for acalculous cholecystitis. Considernuclear medicine HIDA scan.Electronically Signed By: Pramod Reyes 21:22 CDTWorkstation Name: [id number] SENSITIVITY TROPONIN [id number] 20:19:21 Test Item Value Reference Range Interpretation Comments HIGH SENSITIVITY TROPONIN I (test < pg/ml <=35 code = 4094965) Lending Consultant ID - ADMINThe SAFETY FIRE BOSS STAT High Sensitivity Troponin-I results should be used in conjunction with other diagnostic information such as ECG, clinical observations and information, and patientsymptoms to aid in the diagnosis of MD. CBC W/PLT COUNT & AUTO [id number] 18:43:39 Test Item Value Reference Range Interpretation Comments WHITE BLOOD CELL COUNT (BEAKER) 10.9 K/ L 3.5-10.5 H (test code = 775) RED BLOOD CELL COUNT (BEAKER) 4.08 M/ L 4.63-6.08 L (test code = 761) HEMOGLOBIN (BEAKER) (test code = 11.8 GM/DL 13.7-17.5 L 410) HEMATOCRIT (BEAKER) (test code = 36.3 % 40.1-51.0 L 411) MEAN CORPUSCULAR VOLUME (BEAKER) 89 fL 79-92 (test code = 753) MEAN CORPUSCULAR HEMOGLOBIN 28.9 pg 25.7-32.2 (BEAKER) (test code = 751) MEAN CORPUSCULAR HEMOGLOBIN CONC 32.5 GM/DL 32.3-36.5 (BEAKER) (test code = 752) RED CELL DISTRIBUTION WIDTH 14.6 % 11.6-14.4 H (BEAKER) (test code = 412) PLATELET COUNT (BEAKER) (test 181 K/CU MM 150-450 code = 756) MEAN PLATELET VOLUME (BEAKER) 9.3 fL 9.4-12.4 L (test code = 754) NUCLEATED RED BLOOD CELLS 0 /100 WBC 0-0 (BEAKER) (test code = 413) NEUTROPHILS RELATIVE PERCENT 72 % (BEAKER) (test code = 429) LYMPHOCYTES RELATIVE PERCENT 19 % (BEAKER) (test code = 430) MONOCYTES RELATIVE PERCENT 6 % (BEAKER) (test code = 431) EOSINOPHILS RELATIVE PERCENT 3 % (BEAKER) (test code = 432) BASOPHILS RELATIVE PERCENT 0 % (BEAKER) (test code = 437) NEUTROPHILS ABSOLUTE COUNT 7.83 K/ L 1.78-5.38 H (BEAKER) (test code = 670) LYMPHOCYTES ABSOLUTE COUNT 2.11 K/ L 1.32-3.57 (BEAKER) (test code = 414) MONOCYTES ABSOLUTE COUNT (BEAKER) 0.64 K/ L 0.30-0.82 (test code = 415) EOSINOPHILS ABSOLUTE COUNT 0.28 K/ L 0.04-0.54 (BEAKER) (test code = 416) BASOPHILS ABSOLUTE COUNT (BEAKER) 0.02 K/ L 0.01-0.08 (test code = 417) IMMATURE GRANULOCYTES-RELATIVE 0.30 % 0.00-1.00 PERCENT (BEAKER) (test code = 2801) [id number] 18:21:27 Test Item Value Reference Range Interpretation Comments LIPASE (BEAKER) (test code = 749) > U/L 8-78 H Lending Consultant ID - ADMINCOMPREHENSIVE METABOLIC [id number] 18:21:04 Test Item Value Reference Range Interpretation Comments TOTAL PROTEIN 6.5 gm/dL 6.0-8.3 (BEAKER) (test code = 770) ALBUMIN (BEAKER) 3.6 g/dL 3.5-5.0 (test code = 1145) ALKALINE 81 U/L 40-150 PHOSPHATASE (BEAKER) (test code = 346) BILIRUBIN TOTAL 0.7 mg/dL 0.2-1.2 (BEAKER) (test code = 377) SODIUM (BEAKER) 137 meq/L 136-145 (test code = 381) POTASSIUM (BEAKER) 4.2 meq/L 3.5-5.1 (test code = 379) CHLORIDE (BEAKER) 101 meq/L 98-107 (test code = 382) CO2 (BEAKER) (test 26 meq/L 22-29 code = 355) BLOOD UREA 6 mg/dL 7-21 L NITROGEN (BEAKER) (test code = 354) CREATININE 0.67 mg/dL 0.57-1.25 (BEAKER) (test code = 358) GLUCOSE RANDOM 87 mg/dL 70-105 (BEAKER) (test code = 652) CALCIUM (BEAKER) 8.8 mg/dL 8.4-10.2 (test code = 697) AST (SGOT) 39 U/L 5-34 H (BEAKER) (test code = 353) ALT (SGPT) 27 U/L 6-55 (BEAKER) (test code = 347) EGFR (BEAKER) 101 Interpretatio n of eGFR (test code = 1092) mL/min/1.[address] age Description sq m Result G1 Paras l or high >=90 G2 Mildly decreased 60-89 G3a Mildl y to moderately 45-5 9 G3b Moderately to s everely 30-44 G4 Severl y decreased 15-29 G5 Kidney failure <15Reported eGF R is based on the CKD-EPI 2020 equation that d oes not use a race coefficientEsti mated GFR is not as accur ate as Creatinine Laurel benton in predicting glom erular filtration rate . Estimated GFR is not appl icable for dialysis patien ts Lending Consultant ID - ADMINPROTHROMBIN TIME/[id number] 18:08:40 Test Item Value Reference Range Interpretation Comments PROTIME (BEAKER) (test code = 13.2 seconds 11.9-14.2 759) INR (BEAKER) (test code = 370) 0.99 <=5.90 RECOMMENDED COUMADIN/WARFARIN INR THERAPY RANGESSTANDARD DOSE: 2.0 - 3.0 Includes: PROPHYLAXIS for venous thrombosis, systemic embolization; TREATMENT for venous thrombosis and/or pulmonary embolus.HIGH RISK: Target INR is 2.5-3.5 for patients with mechanical heart valves.Electrolyte [id number] 16:07:36 Test Item Value Reference Range Interpretation Comments Sodium Lvl (test code = 136 See_Comment [Au tomated message] 2951-2) The system [employer] generated this result transmitted ref erence range: 136 - 14 5 mEq/L. The refe rence range was not u sed to interpret this result as normal/abnor mal. Potassium Lvl (test code 3.5 See_Comment [A utomated message] = 2823-3) The system [employer] generated this result transmitted ref erence range: 3.5 - 5. 1 mEq/L. The refe rence range was not u sed to interpret this result as normal/abnor mal. Chloride (test code = 100 See_Comment [Auto mated message] 2074-0) The system [employer] generated this result transmitted ref erence range: 98 - 107 mEq/L. The refe rence range was not u sed to interpret this result as normal/abnor mal. CO2 (test code = 2027-) 32 See_Comment H [A utomated message] The system [employer] generated this result transmitted ref erence range: 22 - 29 mEq/L. The reference r jose was not used to interpret this result as normal/abnor mal. Anion Gap (test code = 4 See_Comment [Aut omated message] 40140-1) The system [employer] generated this result transmitted ref erence range: 4 - 14 m Eq/L. The reference r jose was not used to interpret this result as normal/abnor mal. Lab Interpretation (test Abnormal code = 05427-9) [facility]ro[facility] [id number] 16:07:36 Test Item Value Reference Range Interpretation Comments Sodium Lvl (test code = 136 See_Comment [Au tomated message] 2951-2) The system [employer] generated this result transmitted ref erence range: 136 - 14 5 mEq/L. The refe rence range was not u sed to interpret this result as normal/abnor mal. Potassium Lvl (test code 3.5 See_Comment [A utomated message] = 2823-3) The system [employer] generated this result transmitted ref erence range: 3.5 - 5. 1 mEq/L. The refe rence range was not u sed to interpret this result as normal/abnor mal. Chloride (test code = 100 See_Comment [Auto mated message] ) The system [employer] generated this result transmitted ref erence range: 98 - 107 mEq/L. The refe rence range was not u sed to interpret this result as normal/abnor mal. CO2 (test code = 2028-02) 32 See_Comment H [A utomated message] The system [employer] generated this result transmitted ref erence range: 22 - 29 mEq/L. The reference r jose was not used to interpret this result as normal/abnor mal. Anion Gap (test code = 4 See_Comment [Aut omated message] 94128-5) The system [employer] generated this result transmitted ref erence range: 4 - 14 m Eq/L. The reference r jose was not used to interpret this result as normal/abnor mal. Lab Interpretation (test Abnormal code = 23805-3) [facility] [id number] 16:07:26 Test Item Value Reference Range Interpretation Comments Total Protein (test code = 2885-2) 6.7 g/dL 6.4-8.3 [facility] [id number] 16:07:26 Test Item Value Reference Range Interpretation Comments Total Protein (test code = 2885-2) 6.7 g/dL 6.4-8.3 [facility] [id number] 16:07:25 Test Item Value Reference Range Interpretation Comments Calcium Lvl (test code = 54172-5) 9.1 mg/dL 8.4-10.2 [facility] [id number] 16:07:25 Test Item Value Reference Range Interpretation Comments Calcium Lvl (test code = 80115-2) 9.1 mg/dL 8.4-10.2 [facility] 16:07:24 ALT<5<=41 U[facility] [id number] 16:07:24ALT<5<=41 U[facility] 16:07:23 Test Item Value Reference Range Interpretation Comments BUN (test code = 3094-0) 9 mg/dL 6- [facility]26 16:07:23 Test Item Value Reference Range Interpretation Comments BUN (test code = 3094-0) 9 mg/dL 6- [facility] [id number] 16:07:22 Test Item Value Reference Range Interpretation Comments Glucose Level (test 74 mg/dL 70-99 Effectiv e 01/24/16, the code = 2345-7) glucose refer ence intervals have been updated based o n [employer] octaviano delines (Standards of edical Care in [place] 2016. Diabetes Care 2 016; 39: S13-S22).Fastin g blood glucose:Normal: 70-99 mg/dLImpaired f asting glucose (increa sed risk for diabetes or pre-diabetes): 100-125 mg/dLDiabetes m ellitus: >/=126 mg/dL Ra ndom blood glucose:N ormal: 70-199 mg/dLNot e: Random glucose >100 mg /dL is associated with increased risk for diabetes [facility] [id number] 16:07:22 Test Item Value Reference Range Interpretation Comments Glucose Level (test 74 mg/dL 70-99 Effectiv e 01/24/16, the code = 2345-7) glucose refer ence intervals have been updated based o n [employer] delines (Standards of edical Care in [place] 2016. Diabetes Care 2 016; 39: S13-S22).Fastin g blood glucose:Normal: 70-99 mg/dLImpaired f asting glucose (increa sed risk for diabetes or pre-diabetes): 100-125 mg/dLDiabetes m ellitus: >/=126 mg/dL Ra ndom blood glucose:N ormal: 70-199 mg/dLNot e: Random glucose >100 mg /dL is associated with increased risk for diabetes [facility] Rhmqyixef5107-05-35 16:07:21Bili Total<0.3<=1.2 mg/dLUT [facility]raction[facility] Ueyqydfjc5354-26-16 16:07:21Bili Total<0.3<=1.2 mg/dLUT [facility]inteGlomerular Filtration Rate 2023-01-22 16:07:20 Test Item Value Reference Range Interpretation Comments eGFR (test code = 101 See_Comment The eGFRcr [place] 57122-2) the 2020 CKD-EP I creatinine equation using [...] int erpret this result as paras l/abnormal. [facility] 2023-01-22 16:07:20 Test Item Value Reference Range Interpretation Comments eGFR (test code = 101 See_Comment The eGFRcr [place] calculated with 59469-9) the 2020 CKD-EP I creatinine equation using [...] int erpret this result as paras l/abnormal. [facility] Ulwthhceztm1087-90-77 16:07:19 Test Item Value Reference Range Interpretation Comments Alk Phos (test code = 6768-6) 75 U/L 40-129 [facility] Qwlouhovwbq0198-51-93 16:07:19 Test Item Value Reference Range Interpretation Comments Alk Phos (test code = 6768-6) 75 U/L 40-129 [facility]entonAlbum[facility] Awujr7453-09-02 16:07:18 Test Item Value Reference Range Interpretation Comments Albumin Lvl (test code 3.8 See_Comment [Aut omated message] The = 1750-12) system which ge nerated this result tra nsmitted reference range : 3.5 - 5.2 gm/dL. The refe rence range was not used to interpret this result as normal/abnormal . [facility] Rawpa5227-26-98 16:07:18 Test Item Value Reference Range Interpretation Comments Albumin Lvl (test code 3.8 See_Comment [Aut omated message] The = 1750-12) system which ge nerated this result tra nsmitted reference range : 3.5 - 5.2 gm/dL. The refe rence range was not used to interpret this result as normal/abnormal . [facility]enton[facility]art[facility] Aminotransferase 2023-01-22 16:07:17 Test Item Value Reference Range Interpretation Comments AST (test code = 1920-8) 12 U/L <=40 [facility] Aminotransferase 2023-01-22 16:07:17 Test Item Value Reference Range Interpretation Comments AST (test code = 1920-8) 12 U/L <=40 [facility].Serum Stqndoqubv6854-91-05 16:07:15 Test Item Value Reference Range Interpretation Comments Creatinine (test code = 2160-0) 0.68 mg/dL 0.67-1.17 [facility].Serum Sdtuucksfy3240-03-72 16:07:15 Test Item Value Reference Range Interpretation Comments Creatinine (test code = 2160-0) 0.68 mg/dL 0.67-1.17 [facility]2023-[facility]-26 15:26:55 Test Item Value Reference Range Interpretation [...] (test code = 0.03 K/uL 0.01-0.12 5954) [facility]2023-07-26 15:26:55 Test Item Value Reference Range Interpretation [...] (test code = 0.03 K/uL 0.01-0.12 5954) [facility].VQE9020-38-05 15:26:48 Test Item Value Reference Range Interpretation Comments WBC (test code = 8034) 10.4 K/uL 4.1-10.5 RBC (test code = 6932) 3.73 See_Comment L [Aut omated message] The system Cart[employer] generated this result transmitted ref erence range: 4.30 - 6 .04 M/uL. The refer ence range was not u sed to interpret this result as normal/abnor mal. Hgb (test code = 5898) 11.7 See_Comment L [Aut omated message] The system [employer] generated this result transmitted ref erence range: [...] 33.3 See_Comment [Au tomated message] The system [employer] generated this result transmitted ref erence range: [...] cell differential. [Automated mess age] The system [employer] generated this result transmitted ref erence range: 0.0 - 0. 1 /100 WBC. The refere nce range was not u sed to interpret this result as normal/abnor mal. Lab Interpretation Abnormal (test code = 23482-6) [facility] [place].NQJ8535-67-94 15:26:48 Test Item Value Reference Range Interpretation Comments WBC (test code = 8034) 10.4 K/uL 4.1-10.5 RBC (test code = 6932) 3.73 See_Comment L [Aut omated message] The system Cart[employer] generated this result transmitted ref erence range: 4.30 - 6 .04 M/uL. The refer ence range was not u sed to interpret this result as normal/abnor mal. Hgb (test code = 5898) 11.7 See_Comment L [Aut omated message] The system [employer] generated this result transmitted ref erence range: [...] 33.3 See_Comment [Au tomated message] The system [employer] generated this result transmitted ref erence range: [...] cell differential. [Automated mess age] The system [employer] generated this result transmitted ref erence range: 0.0 - 0. 1 /100 WBC. The refere nce range was not u sed to interpret this result as normal/abnor mal. Lab Interpretation Abnormal (test code = 40003-6) [facility] Qqgjidqfmj9592-90-30 14:23:13 Test Item Value Reference Range Interpretation Comments POC Crea (test code 0.5 mg/dL 0.6-1.3 L Medicati ons, = 04335-3) especially hydroxyurea or supplements, nunez ch as [...] chemic ally sensitive biose nsors on a silicon [employer] ip that are config ured to perform spec ific tests. The microfabricated sensors measure analyte concent ration by an electroch emical assay. POC EGFR (test code 111 See_Comment The eGFR cr is = 50191) calculated with the 2020 CKD-EPI creatinine equa [...] CK D. [Automated mess age] The system [employer] h generated this result transmitted ref erence range: >=60 mL/min/1.73 sq. m. The reference r jose was not used to interpret this result as normal/abnor mal. POC Clean Dev (test Yes code = 6672) Performing Lab (test MDA Main Main Ca mpus code = 93588) [facility] Cli nical [facility], [address], [place] [address]; [employer] Plant Maintenance Consultant: Aletha Arciniega MD; Waived Point of Care Testing - Rosina real MD Lab Interpretation Abnormal (test code = 51348-3) [facility] Trcqrokads2812-08-18 14:23:13 Test Item Value Reference Range Interpretation Comments POC Crea (test code 0.5 mg/dL 0.6-1.3 L Medicati ons, = 06987-0) especially hydroxyurea or supplements, nunez ch as [...] whole blood. The device uses a s nuiva disposable cart ridge which contains microfabricated sensors, a calibration kathi ution, fluidics system , and a waste chamber . Each test cartridge contains chemic ally sensitive biose nsors on a [employer] ip that are config ured to perform spec ific tests. The microfabricated sensors measure analyte concent ration by an electroch emical assay. POC EGFR (test code 111 See_Comment The eGFR cr is = 35513) calculated with the 2020 CKD-EPI creatinine equa [...] CK D. [Automated mess age] The system [employer] generated this result transmitted ref erence range: >=60 mL/min/1.73 sq. m. The reference r jose was not used to interpret this result as normal/abnor mal. POC Clean Dev (test Yes code = 6672) Performing Lab (test MDA Main Main Ca mpus code = 12909) [facility] Cli nical Lab, [address], [place] [address]; [employer] Plant Maintenance Consultant: Aletha Arciniega MD; Waived Point of Care Testing - Rosina real MD Lab Interpretation Abnormal (test code = 14990-0) [facility] Vysmdyhkc8724-89-13 14:14:11Bili Total<0.3<=1.2 mg/dLMAYS [facility] Ltgrcnaci8906-49-38 14:14:11Bili Total<0.3<=1.2 mg/dLMAYS [facility] Chxofdmyq6560-03-82 14:14:11Bili Total<0.3<=1.2 mg/dLMAYS [facility] Qljjrzbir5584-58-14 14:14:11Bili Total<0.3<=1.2 mg/dLMAYS [facility] CenterF[facility] Nhjjytzqz6501-69-50 14:14:11Bili Total<0.3<=1.2 mg/dLMAYS [facility] CenterGlomer[facility] Filtration Uudb8003-53-00 14:14:10 Test Item Value Reference Range Interpretation Comments eGFR (test 105 See_Comment The eGFRcr is c alculated code = with the 2020 C KD-EPI 89427-3) creatinine equa tion using creatinin e, patient's [...] eria for CKD. Testing Pe rformed at [facility] Lab [facility], [address], [address], [place] [address] [Autom ated message] The [employer] stem which generated this result transmit lakhwinder reference range : >=60 mL/min/1.73 sq. m. The reference range was not used to interpr et this result as normal/abnormal . PAIGE (test Schedule same day code = PAIGE) tests/clinic appt [facility] [place] 2022-09-13 14:14:10 Test Item Value Reference Range Interpretation Comments eGFR (test 105 See_Comment The eGFRcr is c alculated code = with the 2020 C KD-EPI 46585-1) creatinine equa tion using creatinin e, patient's [...] eria for CKD. Testing Pe rformed at [facility] Lab [facility], [address], [address], [place] [address] [Autom ated message] The sy stem which generated this result transmit lakhwinder reference range : >=60 mL/min/1.73 sq. m. The reference range was not used to interpr et this result as normal/abnormal . PAIGE (test Schedule same day code = PAIGE) tests/clinic appt [facility] [place] 2022-09-13 14:14:10 Test Item Value Reference Range Interpretation Comments eGFR (test 105 See_Comment The eGFRcr is c alculated code = with the 2020 C KD-EPI 89456-1) creatinine equa tion using creatinin e, patient's [...] eria for CKD. Testing Pe rformed at [facility] Lab [facility], [address], [address], [place] [address] [Autom ated message] The sy stem which generated this result transmit lakhwinder reference range : >=60 mL/min/1.73 sq. m. The reference range was not used to interpr et this result as normal/abnormal . PAIGE (test Schedule same day code = PAIGE) tests/clinic appt [facility] 2022-09-13 14:14:10 Test Item Value Reference Range Interpretation Comments eGFR (test 105 See_Comment The eGFRcr is c alculated code = with the 2020 C KD-EPI 92664-8) creatinine equa tion using creatinin e, patient's [...] eria for CKD. Testing Pe rformed at [facility] Lab [facility], [address], [address], [place] [address] [Autom ated message] The sy stem which generated this result transmit lakhwinder reference range : >=60 mL/min/1.73 sq. m. The reference range was not used to interpr et this result as normal/abnormal . PAIGE (test Schedule same day code = PAIGE) tests/clinic appt [facility] 2022-09-13 14:14:10 Test Item Value Reference Range Interpretation Comments eGFR (test 105 See_Comment The eGFRcr is c alculated code = with the 2020 C KD-EPI 43587-4) creatinine equa tion using creatinin e, patient's [...] eria for CKD. Testing Pe rformed at [facility] Lab [facility], [address], [address], [place] [address] [Autom ated message] The sy stem which generated this result transmit lakhwinder reference range : >=60 mL/min/1.73 sq. m. The reference range was not used to interpr et this result as normal/abnormal . PAIGE (test Schedule same day code = PAIGE) [facility] Huxdrdq9851-90-29 14:14:09 Test Item Value Reference Range Interpretation Comments Total Protein 7.2 g/dL 6.4-8.3 Testing Perfor med (test code = at [facility] Lab 2885-2) [employer] [facility], [address], [address], [place], [place] [address] PAIGE (test code = Schedule same day PAIGE) [facility] Rjhlzpg4249-15-89 14:14:09 Test Item Value Reference Range Interpretation Comments Total Protein 7.2 g/dL 6.4-8.3 Testing Perfor med (test code = at [facility] Lab 2885-2) [employer] [facility], [address], [address], [place], [place] [address] PAIGE (test code = Schedule same day PAIGE) tests[facility]clinic [facility] Jlppngy3540-17-54 14:14:09 Test Item Value Reference Range Interpretation Comments Total Protein 7.2 g/dL 6.4-8.3 Testing Perfor med (test code = at [facility] 2885-2) [employer] Install[employer] [facility], [address], [address], [place], [place] [address] PAIGE (test code = Schedule same day PAIGE) tests[facility]inic [facility] Dtctoyj0907-22-86 14:14:09 Test Item Value Reference Range Interpretation Comments Total Protein 7.2 g/dL 6.4-8.3 Testing Perfor med (test code = at [facility] 2885-2) [employer] Installer [facility], [address], [address], [place], [place] [address] PAIGE (test code = Schedule same day PAIGE) tests[facility]inic [facility] Coygimv9647-04-43 14:14:09 Test Item Value Reference Range Interpretation Comments Total Protein 7.2 g/dL 6.4-8.3 Testing Perfor med (test code = at [facility] 2885-2) [employer] Install[employer] [facility], [address], [address], [place], [place] [address] PAIGE (test code = Schedule same day PAIGE) tests[facility]clinic [facility] Rrlox6833-87-60 14:14:08 Test Item Value Reference Range Interpretation Comments Calcium Lvl (test 9.4 mg/dL 8.4-10.2 Testing Pe rformed code = 12872-5) at [facility] [employer] [facility], [address], [address], [place], [place] [address] PAIGE (test code = Schedule same day PAIGE) tests[facility]clinic [facility] Rlxkj8929-65-96 14:14:08 Test Item Value Reference Range Interpretation Comments Calcium Lvl (test 9.4 mg/dL 8.4-10.2 Testing Pe rformed code = 23940-7) at [facility] [employer] [facility], [address], [address], [place] [address] PAIGE (test code = Schedule same day PAIGE) tests[facility]clinic [facility] Eviij0408-69-49 14:14:08 Test Item Value Reference Range Interpretation Comments Calcium Lvl (test 9.4 mg/dL 8.4-10.2 Testing Pe rformed code = 92430-3) at [facility] Lab [employer] [facility], [address], [place], [place] [address] PAIGE (test code = Schedule same day PAIGE) tests/clinic [facility]Cal[facility] Dadpr5145-25-81 14:14:08 Test Item Value Reference Range Interpretation Comments Calcium Lvl (test 9.4 mg/dL 8.4-10.2 Testing Pe rformed code = 79960-0) at [facility] Lab [employer] [facility], [address], [place], [place] [address] PAIGE (test code = Schedule same day PAIGE) tests[facility]clinic [facility] Xvmyu7284-52-86 14:14:08 Test Item Value Reference Range Interpretation Comments Calcium Lvl (test 9.4 mg/dL 8.4-10.2 Testing Pe rformed code = 84627-9) at [facility] Lab [employer] [facility], [address], [address], [place], [place] [address] PAIGE (test code = Schedule same day PAIGE) tests[facility]clinic [facility]aline Bcydgdggbch8463-53-13 14:14:07 Test Item Value Reference Range Interpretation Comments Alk Phos (test 94 U/L 40-129 Testing Perfo rmed at code = 6768-6) [facility] Lab Ambul atory [facility], [address], [place] [address] PAIGE (test code Schedule same day = PAIGE) tests/clinic [facility]Al[facility]aline Iatcbaiwnww5538-03-24 14:14:07 Test Item Value Reference Range Interpretation Comments Alk Phos (test 94 U/L 40-129 Testing Perfo rmed at code = 6768-6) [facility], [address], [place] [address] PAIGE (test code Schedule same day = PAIGE) tests/clinic [facility] Zgmyddbzjcg8924-87-63 14:14:07 Test Item Value Reference Range Interpretation Comments Alk Phos (test 94 U/L 40-129 Testing Perfo rmed at code = 6768-6) [facility] Lab Ambul atory Care [facility], [address], [place] [address] PAIGE (test code Schedule same day = PAIGE) tests/clinic [facility]Al[facility]aline Olxksazkhun1387-53-74 14:14:07 Test Item Value Reference Range Interpretation Comments Alk Phos (test 94 U/L 40-129 Testing Perfo rmed at code = 6768-6) [facility], [address], [place] [address] PAIGE (test code Schedule same day = PAIGE) tests/clinic [facility]aline Vmdwymaphxo7608-88-12 14:14:07 Test Item Value Reference Range Interpretation Comments Alk Phos (test 94 U/L 40-129 Testing Perfo rmed at code = 6768-6) [facility] Lab Ambul ator Care [facility], [address], [place] [address] PAIGE (test code Schedule same day = PAIGE) tests/clinic [facility] HospitalElectrolyte Crdit9347-28-38 14:14:06 Test Item Value Reference Range Interpretation Comments Sodium Lvl (test 141 See_Comment Testing Per formed code = 2951-2) at [facility] Lab [employer] [facility], [address], [place], [place] [address] [Automated mess age] The system Cart[employer] generated this result transmit lakhwinder reference range : 136 - 145 mEq/L . The reference r jose was not used to interpret this result as normal/abnormal . Potassium Lvl 3.9 See_Comment Testing Perfor med (test code = at [facility] Lab 2823-3) [employer] Install[employer] [facility], [address], [place], [place] [address] [Automated mess age] The system whic h generated this result transmit lakhwinder reference range : 3.5 - 5.1 mEq/L . The reference r jose was not used to interpret this result as normal/abnormal . Chloride (test 105 See_Comment Testing Perfo rmed code = 2075-0) at [facility] Lab [facility], [address] [place] [address], [address], [place], [place] [address] [Automated mess age] The system [employer] h generated this result transmit lakhwinder reference range : 98 - 107 mEq/L. Th e reference range was not used to interpret this result as normal/abnormal . CO2 (test code = 25 See_Comment Testing Per formed 2028-02) at [facility] Lab [facility], [address] [place] [address], [address], [place], [place] [address] [Automated mess age] The system [employer] generated this result transmit lakhwinder reference range : 22 - 29 mEq/L. The reference range was not used to interpret this result as normal/abnormal . Anion Gap (test 11 See_Comment Testing Perf ormed code = 89679-6) at [facility], [address] [place] [address], [address], [place], [place] [address] [Automated mess age] The system Cart[employer] generated this result transmit lakhwinder reference range : 4 - 14 mEq/L. The reference range was not used to interpret this result as normal/abnormal . PAIGE (test code = Schedule same day PAIGE) tests/clinic appt [facility] Ruuoj5058-13-17 14:14:06 Test Item Value Reference Range Interpretation Comments Sodium Lvl (test 141 See_Comment Testing Per formed code = 2951-2) at [facility], [address] [place] [address], [address], [place] [address] [Automated mess age] The system Cart[employer] generated this result transmit lakhwinder reference range : 136 - 145 mEq/L . The reference r jose was not used to interpret this result as normal/abnormal . Potassium Lvl 3.9 See_Comment Testing Perfor med (test code = at [facility] Lab 2823-3) [address], [address], [place], [place] [address] [Automated mess age] The system [employer] h generated this result transmit lakhwinder reference range : 3.5 - 5.1 mEq/L . The reference r jose was not used to interpret this result as normal/abnormal . Chloride (test 105 See_Comment Testing Perfo rmed code = 5-0) at [facility] Lab [employer] [facility], [address] [place] [address], [address], [place] [address] [Automated mess age] The system [employer] [facility] generated this result transmit lakhwinder reference range : 98 - 107 mEq/L. Th e reference range was not used to interpret this result as normal/abnormal . CO2 (test code = 25 See_Comment Testing Per formed 2028-02) at [facility] Lab [facility], [address] [place] [address], [address], [place] [address] [Automated mess age] The system Cart[employer] generated this result transmit lakhwinder reference range : 22 - 29 mEq/L. The reference range was not used to interpret this result as normal/abnormal . Anion Gap (test 11 See_Comment Testing Perf ormed code = 28380-3) at [facility] Lab [facility], [address] [place] [address], [address], [place] [address] [Automated mess age] The system [employer] generated this result transmit lakhwinder reference range : 4 - 14 mEq/L. The reference range was not used to interpret this result as normal/abnormal . PAIGE (test code = Schedule same day PAIGE) tests/clinic appt [facility] [place] [id number] 14:14:06 Test Item Value Reference Range Interpretation Comments Sodium Lvl (test 141 See_Comment Testing Per formed code = 2951-2) at [facility] Lab [facility], [address] [place] [address], [address], [place] [address] [Automated mess age] The system Cart[employer] generated this result transmit lakhwinder reference range : 136 - 145 mEq/L . The reference r jose was not used to interpret this result as normal/abnormal . Potassium Lvl 3.9 See_Comment Testing Perfor med (test code = at [facility] Lab 2823-3) [facility], [address] [place] [address], [address], [place] [address] [Automated mess age] The system Cart[employer] generated this result transmit lakhwinder reference range : 3.5 - 5.1 mEq/L . The reference r jose was not used to interpret this result as normal/abnormal . Chloride (test 105 See_Comment Testing Perfo rmed code = 2075-0) at [facility] Lab [employer], [address] [place] [address], [address], [place] [address] [Automated mess age] The system [employer] generated this result transmit lakhwinder reference range : 98 - 107 mEq/L. Th e reference range was not used to interpret this result as normal/abnormal . CO2 (test code = 25 See_Comment Testing Per formed 2028-02) at [facility] Lab [employer] [facility], [address] [place] [address], [address], [place] [address] [Automated mess age] The system [employer] generated this result transmit lakhwinder reference range : 22 - 29 mEq/L. The reference range was not used to interpret this result as normal/abnormal . Anion Gap (test 11 See_Comment Testing Perf ormed code = 97543-9) at [facility] Lab [facility], [address] [place] [address], [address], [place] [address] [Automated mess age] The system [employer] generated this result transmit lakhwinder reference range : 4 - 14 mEq/L. The reference range was not used to interpret this result as normal/abnormal . PAIGE (test code = Schedule same day PAIGE) tests[facility]clinic [facility]t [facility] [id number] 14:14:06 Test Item Value Reference Range Interpretation Comments Sodium Lvl (test 141 See_Comment Testing Per formed code = 2951-2) at [facility] Lab Terra[employer] Installer [facility], [address] [place] [address], [address], [place], [place] [address] [Automated mess age] The system Cartour generated this result transmit lakhwinder reference range : 136 - 145 mEq/L . The reference r jose was not used to interpret this result as normal/abnormal . Potassium Lvl 3.9 See_Comment Testing Perfor med (test code = at [facility] Lab 2823-3) Terrazzo Installer [facility], [address] [place] [address], [address], [place], [place] [address] [Automated mess age] The system Skem[employer] h generated this result transmit lakhwinder reference range : 3.5 - 5.1 mEq/L . The reference r jose was not used to interpret this result as normal/abnormal . Chloride (test 105 See_Comment Testing Perfo rmed code = 2075-0) at [facility] Lab Terrazzo Installer [facility], [address] [place] [address], [address], [place], [place] [address] [Automated mess age] The system [employer] [facility] generated this result transmit lakhwinder reference range : 98 - 107 mEq/L. Th e reference range was not used to interpret this result as normal/abnormal . CO2 (test code = 25 See_Comment Testing Per formed 2028-02) at [facility] Lab Terrazzo Installer [facility], [address] [facility], [address], [place], [place] [address] [Automated mess age] The system Cart[employer] generated this result transmit lakhwinder reference range : 22 - 29 mEq/L. The reference range was not used to interpret this result as normal/abnormal . Anion Gap (test 11 See_Comment Testing Perf ormed code = 64845-0) at [facility] Lab [facility], [facility], [address], [place], [place] [address] [Automated mess age] The system [employer] generated this result transmit lakhwinder reference range : 4 - 14 mEq/L. The reference range was not used to interpret this result as normal/abnormal . PAIGE (test code = Schedule same day PAIGE) tests/clinic appt [facility] [place] [id number] 14:14:06 Test Item Value Reference Range Interpretation Comments Sodium Lvl (test 141 See_Comment Testing Per formed code = 2951-2) at [facility] Lab Terrazzo Installer [facility], [address] [place] [address], [address], [place], [place] [address] [Automated mess age] The system [employer] generated this result transmit lakhwinder reference range : 136 - 145 mEq/L . The reference r jose was not used to interpret this result as normal/abnormal . Potassium Lvl 3.9 See_Comment Testing Perfor med (test code = at [facility] Lab 2823-3) Terrazzo Installer [facility], [facility], [address], [place], [place] [address] [Automated mess age] The system [employer] h generated this result transmit lakhwinder reference range : 3.5 - 5.1 mEq/L . The reference r jose was not used to interpret this result as normal/abnormal . Chloride (test 105 See_Comment Testing Perfo rmed code = 2075-0) at [facility] Lab [facility], [facility], [address], [place], [place] [address] [Automated mess age] The system [employer] h generated this result transmit lakhwinder reference range : 98 - 107 mEq/L. Th e reference range was not used to interpret this result as normal/abnormal . CO2 (test code = 25 See_Comment Testing Per formed 2028-02) at [facility] Lab Terrazzo Installer [facility], [address] [facility], [address], [place], [place] [address] [Automated mess age] The system whic h generated this result transmit lakhwinder reference range : 22 - 29 mEq/L. The reference range was not used to interpret this result as normal/abnormal . Anion Gap (test 11 See_Comment Testing Perf ormed code = 19282-6) at [facility] Lab Terrazzo Installer [facility], [address] [facility], [address], [place], [place] [address] [Automated mess age] The system [employer] h generated this result transmit lakhwinder reference range : 4 - 14 mEq/L. The reference range was not used to interpret this result as normal/abnormal . PAIGE (test code = Schedule same day PAIGE) [facility] [id number] 14:14:05 Test Item Value Reference Range Interpretation Comments Albumin Lvl (test 4.0 See_Comment Testing Pe rformed at code = 1751-7) [facility] Lab Ambul [facility], [address] [facility], [address], [place] [address] [Automate d message] The sy stem which generated this result transmit lakhwinder reference range : 3.5 - 5.2 gm/dL. Th e reference range was not used to interpret this result as normal/abnormal . PAIGE (test code = Schedule same day PAIGE) tests[facility]inic [facility] [id number] 14:14:05 Test Item Value Reference Range Interpretation Comments Albumin Lvl (test 4.0 See_Comment Testing Pe rformed at code = 1751-7) [facility] Lab Ambul [facility], [address], [address], [place] [phone] [Automate d message] The sy stem which generated this result transmit lakhwinder reference range : 3.5 - 5.2 gm/dL. Th e reference range was not used to interpret this result as normal/abnormal . PAIGE (test code = Schedule same day PAIGE) tests[facility]inic [facility] [id number] 14:14:05 Test Item Value Reference Range Interpretation Comments Albumin Lvl (test 4.0 See_Comment Testing Pe rformed at code = 1751-7) [facility], [address], [address], [place] [address] [Automate d message] The sy stem which generated this result transmit lakhwinder reference range : 3.5 - 5.2 gm/dL. Th e reference range was not used to interpret this result as normal/abnormal . PAIGE (test code = Schedule same day PAIGE) tests[facility]inic [facility] [id number] 14:14:05 Test Item Value Reference Range Interpretation Comments Albumin Lvl (test 4.0 See_Comment Testing Pe rformed at code = 1751-7) [facility], [address], [address], [place] [address] [Automate d message] The sy stem which generated this result transmit lakhwinder reference range : 3.5 - 5.2 gm/dL. Th e reference range was not used to interpret this result as normal/abnormal . PAIGE (test code = Schedule same day PAIGE) tests[facility]inic [facility] [id number] 14:14:05 Test Item Value Reference Range Interpretation Comments Albumin Lvl (test 4.0 See_Comment Testing Pe rformed at code = 1751-7) [facility], [address], [address], [place] [phone] [Automate d message] The sy stem which generated this result transmit lakhwinder reference range : 3.5 - 5.2 gm/dL. Th e reference range was not used to interpret this result as normal/abnormal . PAIGE (test code = Schedule same day PAIGE) tests[facility]inic [facility] Aminotransferase 2022-09-13 14:14:04 Test Item Value Reference Range Interpretation Comments AST (test code 12 U/L <=40 Testing Perfo rmed at = 1920-8) [facility], [address], [address], [place] [id number] PAIGE (test code Schedule same day = PAIGE) tests[facility]inic [facility] Aminotransferase 2022-09-13 14:14:04 Test Item Value Reference Range Interpretation Comments AST (test code 12 U/L <=40 Testing Perfo rmed at = 1920-8) [facility], [address], [address], [place] [address] PAIGE (test code Schedule same day = PAIGE) tests[facility]inic [facility] Aminotransferase 2022-09-13 14:14:04 Test Item Value Reference Range Interpretation Comments AST (test code 12 U/L <=40 Testing Perfo rmed at = 1920-8) [facility], [address], [address], [place] [address] PAIGE (test code Schedule same day = PAIGE) tests[facility]inic [facility] Amin[facility] 2022-09-13 14:14:04 Test Item Value Reference Range Interpretation Comments AST (test code 12 U/L <=40 Testing Perfo rmed at = 1920-8) [facility], [address], [address], [place] [address] PAIGE (test code Schedule same day = PAIGE) tests[facility]inic [facility] Amin[facility] 2022-09-13 14:14:04 Test Item Value Reference Range Interpretation Comments AST (test code 12 U/L <=40 Testing Perfo rmed at = 1920-8) [facility], [address], [address], [place] [address] PAIGE (test code Schedule same day = PAIGE) [facility]03 Test Item Value Reference Range Interpretation Comments ALT (test code 7 U/L <=41 Testing Perfo rmed at = 1742-6) [facility], [address], [address], [place] [address] PAIGE (test code Schedule same day = PAIGE) tests/clinic [place] [id number] 14:14:03 Test Item Value Reference Range Interpretation Comments ALT (test code 7 U/L <=41 Testing Perfo rmed at = 1742-6) [facility], [address], [address], [place] [address] PAIGE (test code Schedule same day = PAIGE) [facility] 14:14:03 Test Item Value Reference Range Interpretation Comments ALT (test code 7 U/L <=41 Testing Perfo rmed at = 1742-6) [facility], [address], [address], [place] [address] PAIGE (test code Schedule same day = PAIGE) tests/clinic [place] [id number] 14:14:03 Test Item Value Reference Range Interpretation Comments ALT (test code 7 U/L <=41 Testing Perfo rmed at = 1742-6) [facility], [address], [address], [place] [address] PAIGE (test code Schedule same day = PAIGE) [facility] 14:14:03 Test Item Value Reference Range Interpretation Comments ALT (test code 7 U/L <=41 Testing Perfo rmed at = 1742-6) [facility], [address], [address], [place] [address] PAIGE (test code Schedule same day = PAIGE) tests/clinic [facility].Serum [id number] 14:14:01 Test Item Value Reference Range Interpretation Comments Creatinine (test code 0.62 mg/dL 0.67-1.17 L Testin g Performed = 2160-0) at [facility] Lab [employer]ra[employer] Installer Bldg, [address], [address], [place], [place] [address] PAIGE (test code = PAIGE) Schedule same day tests/clinic [facility] Lab Interpretation Abnormal (test code = 46928-4) [facility].Serum Kfebyktcmv6871-19-25 14:14:01 Test Item Value Reference Range Interpretation Comments Creatinine (test code 0.62 mg/dL 0.67-1.17 L Testin g Performed = 2160-0) at [facility] Lab Terrazzo Installer [facility], [address], [place], [place] [address] PAIGE (test code = PAIGE) Schedule same day tests/clinic appt Lab Interpretation Abnormal (test code = 08003-1) [facility].Serum Gggaegmkfl4445-39-34 14:14:01 Test Item Value Reference Range Interpretation Comments Creatinine (test code 0.62 mg/dL 0.67-1.17 L Testin g Performed = 2160-0) at [facility] Lab Terrazzo Installer [facility], [address], [address], [place], [place] [address] PAIGE (test code = PAIGE) Schedule same day tests/clinic appt Lab Interpretation Abnormal (test code = 10510-9) [facility].Serum Azckiiutiy3652-81-79 14:14:01 Test Item Value Reference Range Interpretation Comments Creatinine (test code 0.62 mg/dL 0.67-1.17 L Testin g Performed = 2160-0) at [facility] Lab Terrazzo Installer [facility], [address], [address], [place], [place] [address] PAIGE (test code = PAIGE) Schedule same day tests/clinic appt Lab Interpretation Abnormal (test code = 44555-5) [facility].Serum Oaqliyclwk4285-47-50 14:14:01 Test Item Value Reference Range Interpretation Comments Creatinine (test code 0.62 mg/dL 0.67-1.17 L Testin g Performed = 2160-0) at [facility] Lab Terrazzo Installer [facility], [address] [place] [address], [address], [place] [address] PAIGE (test code = PAIGE) Schedule same day tests/clinic appt Lab Interpretation Abnormal (test code = 83965-9) [facility] 14:14:00 Test Item Value Reference Range Interpretation Comments BUN (test code 10 mg/dL 6-23 Testing Perfo rmed at = 3094-0) [facility] Lab Ambulat ory [facility], [address] [facility], [place] [address] PAIGE (test code Schedule same day = PAIGE) tests[facility]t [facility] 14:14:00 Test Item Value Reference Range Interpretation Comments BUN (test code 10 mg/dL 6-23 Testing Perfo rmed at = 3094-0) [facility], [address], [address], [place] [address] PAIGE (test code Schedule same day = PAIGE) [facility] 14:14:00 Test Item Value Reference Range Interpretation Comments BUN (test code 10 mg/dL 6-23 Testing Perfo rmed at = 3094-0) B [facility], [address], [address], [place] [address] PAIGE (test code Schedule same day = PAIGE) [facility]inic [facility] 14:14:00 Test Item Value Reference Range Interpretation Comments BUN (test code 10 mg/dL 6-23 Testing Perfo rmed at = 3094-0) [facility], [address], [address], [place] [address] PAIGE (test code Schedule same day = PAIGE) [facility] 14:14:00 Test Item Value Reference Range Interpretation Comments BUN (test code 10 mg/dL 6-23 Testing Perfo rmed at = 3094-0) [facility], [address], [address], [place] [address] PAIGE (test code Schedule same day = PAIGE) tests[facility]clinic [facility] [id number] 14:13:59 Test Item Value Reference Range Interpretation Comments Glucose Level (test 102 mg/dL 70-99 H Effectiv e 01/24/16, code = 2345-7) the glucose reference intervals have been updated ba sed on [place] [employer] guidelines (Standards of Medical Care in Diabetes 2016. Diabetes Care 2016; 39: S13-S22).Fastin g blood glucose:Normal: 70-99 mg/dLImpaired fasting glucose (increased risk for diabetes or pre-diabetes): 100-125 mg/dLDiabetes mellitus: >/=12 6 mg/dL Random bl ood glucose:Normal: 70-199 mg/dLNot e: Random glucose >100 mg/dL is associated with increased risk for diabetes Testin g Performed at [facility], [address] [place] [address], [address], [facility] [place] [address] PAIGE (test code = PAIGE) Schedule same day tests/clinic appt Lab Interpretation Abnormal (test code = 84180-6) [facility] [id number] 14:13:59 Test Item Value Reference Range Interpretation Comments Glucose Level (test 102 mg/dL 70-99 H Effectiv e 01/24/16, code = 2345-7) the glucose reference intervals have been updated ba sed on [place] [employer] guidelines (Standards of Medical Care in Diabetes 2016. Diabetes Care 2016; 39: S13-S22).Fastin g blood glucose:Normal: 70-99 mg/dLImpaired fasting glucose (increased risk for diabetes or pre-diabetes): 100-125 mg/dLDiabetes mellitus: >/=12 6 mg/dL Random bl ood glucose:Normal: 70-199 mg/dLNot e: Random glucose >100 mg/dL is associated with increased risk for diabetes Testin g Performed at [facility], [facility] [facility], [address], [place] [address] PAIGE (test code = PAIGE) Schedule same day tests/clinic appt Lab Interpretation Abnormal (test code = 22628-9) [facility] [id number] 14:13:59 Test Item Value Reference Range Interpretation Comments Glucose Level (test 102 mg/dL 70-99 H Effectiv e 01/24/16, code = 2345-7) the glucose reference intervals have been updated ba sed on [place] [employer] guidelines (Standards of Medical Care in Diabetes 2016. Diabetes Care 2016; 39: S13-S22).Fastin g blood glucose:Normal: 70-99 mg/dLImpaired fasting glucose (increased risk for diabetes or pre-diabetes): 100-125 mg/dLDiabetes mellitus: >/=12 6 mg/dL Random bl ood glucose:Normal: 70-199 mg/dLNot e: Random glucose >100 mg/dL is associated with increased risk for diabetes Testin g Performed at [facility], [address], [address], [place] [address] PAIGE (test code = PAIGE) Schedule same day tests/clinic appt Lab Interpretation Abnormal (test code = 60368-3) [facility] [id number] 14:13:59 Test Item Value Reference Range Interpretation Comments Glucose Level (test 102 mg/dL 70-99 H Effectiv e 01/24/16, code = 2345-7) the glucose reference intervals have been updated ba sed on [place] [employer] guidelines (Standards of Medical Care in Diabetes 2016. Diabetes Care 2016; 39: S13-S22).Fastin g blood glucose:Normal: 70-99 mg/dLImpaired fasting glucose (increased risk for diabetes or pre-diabetes): 100-125 mg/dLDiabetes mellitus: >/=12 6 mg/dL Random bl ood glucose:Normal: 70-199 mg/dLNot e: Random glucose >100 mg/dL is associated with increased risk for diabetes Testin g Performed at [facility] Terrazzo Installer [facility], [address], [address], [place] [address] PAIGE (test code = PAIGE) Schedule same day tests/clinic appt Lab Interpretation Abnormal (test code = 57097-5) [facility] [id number] 14:13:59 Test Item Value Reference Range Interpretation Comments Glucose Level (test 102 mg/dL 70-99 H Effectiv e 01/24/16, code = 2345-7) the glucose reference intervals have been updated ba sed on [place] [employer] guidelines (Standards of Medical Care in Diabetes 2016. Diabetes Care 2016; 39: S13-S22).Fastin g blood glucose:Normal: 70-99 mg/dLImpaired fasting glucose (increased risk for diabetes or pre-diabetes): 100-125 mg/dLDiabetes mellitus: >/=12 6 mg/dL Random bl ood glucose:Normal: 70-199 mg/dLNot e: Random glucose >100 mg/dL is associated with increased risk for diabetes Testin g Performed at [facility] Lab Terrazzo Installer [facility], [address] [facility], [place] [address] PAIGE (test code = PAIGE) Schedule same day tests/clinic appt Lab Interpretation Abnormal (test code = 02443-0) [facility] [id number] 13:41:08 Test Item Value Reference Range Interpretation Comments POC Crea (test 0.6 mg/dL 0.6-1.3 Medications, code = 38044-5) especially h ydroxyurea or supplements, such as ascorbate, c an interfere with test results causing a falsely and significantly h igher result than exp ected. If a problem is suspected with a patient's resul t, [facility]. Method descript [...] 106 See_Comment The eGFRcr is code = 71462) calculated wit h the 2020 CKD-EPI creatinine equa tion using creatinin e, patient's age, and sex for adults 18 y ears of age and older. Other factors, especi ally muscle mass, ma y affect accuracy and need to be considered.Acco rding to the Kidney D isease: Improving Globa l Outcomes (KDIGO ) CKD Work Group 2012 Clinical Practi ce Guideline, supervisor microbiology technologists henrry kidney disease (CKD) is defined as [...] Yes (test code = 6672) Performing Lab [facility] (test code = [facility] [address]) Clinical Lab, [address] [facility], [place], [place] [address]; [employer] Consultant: Aletha Arciniega MD; Waived Point of Care Testing - Rosina real MD [facility] [id number] 13:41:08 Test Item Value Reference Range Interpretation Comments POC Crea (test 0.6 mg/dL 0.6-1.3 Medications, code = 71924-4) especially h ydroxyurea or supplements, such as [...] 106 See_Comment The eGFRcr is code = 88699) calculated wit h the 2020 CKD-EPI creatinine equa tion using creatinin e, patient's age, and sex for adults 18 y ears of age and older. Other factors, especi ally muscle mass, ma y affect accuracy and need to be considered.Acco rding to the Kidney D isease: Improving Globa l Outcomes (KDIGO ) CKD Work Group 2012 Clinical Practi ce Guideline, supervisor microbiology technologists henrry kidney disease (CKD) is defined as [...] Yes (test code = 6672) Performing Lab [facility] (test code = [facility] [address]) Clinical Lab, [address] [place] [address]; [employer] Maintenance Consultant: Aletha Arciniega MD; Waived Point of Care Testing - Rosina real MD [facility] MD [place] [facility] [id number] 13:41:08 Test Item Value Reference Range Interpretation Comments POC Crea (test 0.6 mg/dL 0.6-1.3 Medications, code = 39115-7) especially h ydroxyurea or supplements, such as [...] 106 See_Comment The eGFRcr is code = 22967) calculated wit h the 2020 CKD-EPI creatinine equa tion using creatinin e, patient's age, and sex for adults 18 y ears of age and older. Other factors, especi ally muscle mass, ma y affect accuracy and need to be considered.Acco rding to the Kidney D isease: Improving Globa l Outcomes (KDIGO ) CKD Work Group 2012 Clinical Practi ce Guideline, supervisor microbiology technologists henrry kidney disease (CKD) is defined as [...] Yes (test code = 6672) Performing Lab [facility] (test code = [facility] [address]) Clinical Lab, [address] [place], [place] [address]; [employer] Maintenance Consultant: Aletha Arciniega MD; Waived Point of Care Testing - Rosina real MD [facility] MD [place] [facility] [id number] 13:41:08 Test Item Value Reference Range Interpretation Comments POC Crea (test 0.6 mg/dL 0.6-1.3 Medications, code = 84871-1) especially h ydroxyurea or supplements, such as [...] 106 See_Comment The eGFRcr is code = 71407) calculated wit h the 2020 CKD-EPI creatinine equa tion using creatinin e, patient's age, and sex for adults 18 y ears of age and older. Other factors, especi ally muscle mass, ma y affect accuracy and need to be considered.Acco rding to the Kidney D isease: Improving Globa l Outcomes (KDIGO ) CKD Work Group 2012 Clinical Practi ce Guideline, supervisor microbiology technologists henrry kidney disease (CKD) is defined as [...] code = 6672) Performing Lab [facility] (test code = [facility] [address]) Clinical Lab, [address], [place], [place] [address]; [employer] Maintenance Consultant: Aletha Arciniega MD; Waived Point of Care Testing - Rosina real MD [facility] [id number] 13:41:08 Test Item Value Reference Range Interpretation Comments POC Crea (test 0.6 mg/dL 0.6-1.3 Medications, code = 91844-3) especially h ydroxyurea or supplements, such as [...] 106 See_Comment The eGFRcr is code = 14503) calculated wit h the 2020 CKD-EPI creatinine equa tion using creatinin e, patient's age, and sex for adults 18 y ears of age and older. Other factors, especi ally muscle mass, ma y affect accuracy and need to be considered.Acco rding to the Kidney D isease: Improving Globa l Outcomes (KDIGO ) CKD Work Group 2012 Clinical Practi ce Guideline, supervisor microbiology technologists henrry kidney disease (CKD) is defined as [...] Yes (test code = 6672) Performing Lab [facility] (test code = [facility] [address]) Clinical Lab, [address], [place], [place] [address]; [employer] Maintenance Consultant: Aletha Arciniega MD; Waived Point of Care Testing - Rosina real MD [facility] BbmjgwYowpcydfzcpx2923-01-43 13:32:19 Test Item Value Reference Range Interpretation Comments Neutrophil % (test 48.8 % 42.0-66.0 As part o f code = 770-8) Differential performed at [facility] Care [facility], [address], [place], [place] [address] Lymphocyte % (test 34.8 % 24.0-44.0 code = 736-9) Monocyte % (test code 9.1 % 2.0-7.0 H = 5905-5) Eosinophil % (test 6.6 % 1.0-4.0 H code = 713-8) Basophil % (test code 0.7 % 0.0-1.0 = 706-2) IGRE % (test code = 0.0 % 0.0-0.4 IGRE % c ount 63286-4) includes Metamyelocytes, Myelocytes, and Promyelocytes. As part of Differential performed at [facility], [address], [address], [place], [place] [address] Neutrophil Abs (test 3.37 K/uL 1.70-7.30 code = 751-8) Lymphocyte Abs (test 2.41 K/uL 1.00-4.80 code = 731-0) Monocyte Abs (test 0.63 K/uL 0.08-0.70 code = 742-7) Eosinophil Abs (test 0.46 K/uL 0.04-0.40 H code = 711-2) Basophil Abs (test 0.05 K/uL 0.00-0.10 code = 704-7) IG Abs (test code = 0.00 K/uL 0.00-0.04 94889-1) PAIGE (test code = PAIGE) Schedule same day tests/clinic appt Lab Interpretation Abnormal (test code = 12084-0) [facility] SnctcwKzjlscnbejhu4737-49-24 13:32:19 Test Item Value Reference Range Interpretation Comments Neutrophil % (test 48.8 % 42.0-66.0 As part o f code = 770-8) Differential performed at [facility], [facility], [address], [place], [place] [address] Lymphocyte % (test 34.8 % 24.0-44.0 code = 736-9) Monocyte % (test code 9.1 % 2.0-7.0 H = 5905-5) Eosinophil % (test 6.6 % 1.0-4.0 H code = 713-8) Basophil % (test code 0.7 % 0.0-1.0 = 706-2) IGRE % (test code = 0.0 % 0.0-0.4 IGRE % c ount 23628-4) includes Metamyelocytes, Myelocytes, and Promyelocytes. As part of Differential performed at [facility], [facility], [address], [place] [address] Neutrophil Abs (test 3.37 K/uL 1.70-7.30 code = 751-8) Lymphocyte Abs (test 2.41 K/uL 1.00-4.80 code = 731-0) Monocyte Abs (test 0.63 K/uL 0.08-0.70 code = 742-7) Eosinophil Abs (test 0.46 K/uL 0.04-0.40 H code = 711-2) Basophil Abs (test 0.05 K/uL 0.00-0.10 code = 704-7) IG Abs (test code = 0.00 K/uL 0.00-0.04 39039-2) PAIGE (test code = PAIGE) Schedule same day tests/clinic appt Lab Interpretation Abnormal (test code = 78788-6) [facility] Test Item Value Reference Range Interpretation Comments Neutrophil % (test 48.8 % 42.0-66.0 As part o f code = 770-8) Differential performed at [facility], [address] [facility], [place], [place] [address] Lymphocyte % (test 34.8 % 24.0-44.0 code = 736-9) Monocyte % (test code 9.1 % 2.0-7.0 H = 5905-5) Eosinophil % (test 6.6 % 1.0-4.0 H code = 713-8) Basophil % (test code 0.7 % 0.0-1.0 = 706-2) IGRE % (test code = 0.0 % 0.0-0.4 IGRE % c ount 63120-2) includes Metamyelocytes, Myelocytes, and Promyelocytes. As part of Differential performed at [facility], [address] [facility], [place] [address] Neutrophil Abs (test 3.37 K/uL 1.70-7.30 code = 751-8) Lymphocyte Abs (test 2.41 K/uL 1.00-4.80 code = 731-0) Monocyte Abs (test 0.63 K/uL 0.08-0.70 code = 742-7) Eosinophil Abs (test 0.46 K/uL 0.04-0.40 H code = 711-2) Basophil Abs (test 0.05 K/uL 0.00-0.10 code = 704-7) IG Abs (test code = 0.00 K/uL 0.00-0.04 70191-9) PAIGE (test code = PAIGE) Schedule same day tests/clinic appt Lab Interpretation Abnormal (test code = 68648-8) [facility] 13:32:19 Test Item Value Reference Range Interpretation Comments Neutrophil % (test 48.8 % 42.0-66.0 As part o f code = 770-8) Differential performed at [facility], [facility], [address], [place] [address] Lymphocyte % (test 34.8 % 24.0-44.0 code = 736-9) Monocyte % (test code 9.1 % 2.0-7.0 H = 5905-5) Eosinophil % (test 6.6 % 1.0-4.0 H code = 713-8) Basophil % (test code 0.7 % 0.0-1.0 = 706-2) IGRE % (test code = 0.0 % 0.0-0.4 IGRE % c ount 05853-2) includes Metamyelocytes, Myelocytes, and Promyelocytes. As part of Differential performed at [facility], [address] [place] [address], [address], [place], [place] [address] Neutrophil Abs (test 3.37 K/uL 1.70-7.30 code = 751-8) Lymphocyte Abs (test 2.41 K/uL 1.00-4.80 code = 731-0) Monocyte Abs (test 0.63 K/uL 0.08-0.70 code = 742-7) Eosinophil Abs (test 0.46 K/uL 0.04-0.40 H code = 711-2) Basophil Abs (test 0.05 K/uL 0.00-0.10 code = 704-7) IG Abs (test code = 0.00 K/uL 0.00-0.04 30094-6) PAIGE (test code = PAIGE) Schedule same day tests/clinic appt Lab Interpretation Abnormal (test code = 94283-7) [facility] NzlzhyZkmcfyqishei7007-15-58 13:32:19 Test Item Value Reference Range Interpretation Comments Neutrophil % (test 48.8 % 42.0-66.0 As part o f code = 770-8) Differential performed at [facility], [facility], [address], [place], [place] [address] Lymphocyte % (test 34.8 % 24.0-44.0 code = 736-9) Monocyte % (test code 9.1 % 2.0-7.0 H = 5905-5) Eosinophil % (test 6.6 % 1.0-4.0 H code = 713-8) Basophil % (test code 0.7 % 0.0-1.0 = 706-2) IGRE % (test code = 0.0 % 0.0-0.4 IGRE % c ount 68333-4) includes Metamyelocytes, Myelocytes, and Promyelocytes. As part of Differential performed at [facility] [employer], [address], [address], [place], [place] [address] Neutrophil Abs (test 3.37 K/uL 1.70-7.30 code = 751-8) Lymphocyte Abs (test 2.41 K/uL 1.00-4.80 code = 731-0) Monocyte Abs (test 0.63 K/uL 0.08-0.70 code = 742-7) Eosinophil Abs (test 0.46 K/uL 0.04-0.40 H code = 711-2) Basophil Abs (test 0.05 K/uL 0.00-0.10 code = 704-7) IG Abs (test code = 0.00 K/uL 0.00-0.04 22842-7) PAIGE (test code = PAIGE) Schedule same day tests/clinic appt Lab Interpretation Abnormal (test code = 41839-7) [facility] [place].[id number] 13:32:09 Test Item Value Reference Range Interpretation [...] individua l orderable testi ng performed at [facility] [employer] [facility], [address], [address], [place], [place] [address] [Automated mess age] The system whic h generated this result transmit lakhwinder reference range : 14.0 - 18.0 gm/ dL. The reference r jose was not used to interpret this result as normal/abnormal . Hct (test code = 45.2 % 40.0-54.0 As part of CBC or 4544-3) as an individua l orderable testi ng performed at [facility] [employer] [facility], [address] [facility] [address], [address], [place], [place] [address] MCV (test code = [...] (test code = 62.4 fL 35.1-46.3 H 71748-6) RDW-CV (test code = 17.9 % 12.0-15.5 H 788-0) Platelet count (test 310 K/uL 140-440 As part of CBC or code = 777-3) as an individu al orderable testi ng performed at [facility] Lab [employer] [facility], [address] [facility] [address], [address], [place], [place] [address] MPV (test code = 9.6 fL 4.0-10.4 84145-6) INRBC (test code = 0.0 % <=0.0 The INRBC 88115-4) (instrument NRB C) value reflects the enumerationof nucleated red b lood cells contained in a 200uL sampleo f whole blood analyzed by the instrument. Thi s value maydiffer from the NRBC v alue reported in a manual differential,wh ich is based on a 1 00 cell differenti al. As part of CBC testing perform ed at [facility] Lab [employer] [id number] [facility], [address], [place], [place] [address] PAIGE (test code = PAIGE) Schedule same day tests/clinic appt Lab Interpretation Abnormal (test code = 57715-9) [facility] [place].[id number] 13:32:09 Test Item Value Reference Range Interpretation [...] individua l orderable testi ng performed at [facility], [facility], [address], [place], [place] [address] [Automated mess age] The system [employer] h generated this result transmit lakhwinder reference range : 14.0 - 18.0 gm/ dL. The reference r jose was not used to interpret this result as normal/abnormal . Hct (test code = 45.2 % 40.0-54.0 As part of CBC or 4544-3) as an individua l orderable testi ng performed at [facility], [facility], [address], [place], [place] [address] MCV (test code = [...] (test code = 62.4 fL 35.1-46.3 H 34458-4) RDW-CV (test code = 17.9 % 12.0-15.5 H 788-0) Platelet count (test 310 K/uL 140-440 As part of CBC or code = 777-3) as an individu al orderable testi ng performed at [facility], [facility], [address], [place], [place] [address] MPV (test code = 9.6 fL 4.0-10.4 44716-8) INRBC (test code = 0.0 % <=0.0 The INRBC 87112-0) (instrument NRB C) value reflects the enumerationof nucleated red b lood cells contained in a 200uL sampleo f whole blood analyzed by the instrument. Thi s value maydiffer from the NRBC v alue reported in a manual differential,wh ich is based on a 1 00 cell differenti al. As part of CBC testing perform ed at [facility] [employer] [id number], [address], [place], [place] [address] PAIGE (test code = PAIGE) Schedule same day tests/clinic appt Lab Interpretation Abnormal (test code = 37837-0) [facility] [place].[id number] 13:32:09 Test Item Value Reference Range Interpretation [...] individua l orderable testi ng performed at [facility], [address] [facility] [address], [address], [place], [place] [address] [Automated mess age] The system ic h generated this result transmit lakhwinder reference range : 14.0 - 18.0 gm/ dL. The reference r jose was not used to interpret this result as normal/abnormal . Hct (test code = 45.2 % 40.0-54.0 As part of CBC or 4544-3) as an individua l orderable testi ng performed at [facility], [address] [facility], [address], [place], [place] [address] MCV (test code = 96 fL 82-98 787-2) MCH (test code = 30.8 pg 27.0-31.0 785-6) MCHC (test code = 32.1 See_Comment [Automate d 609-4) message] The sy stem which generated this result transmitted reference range : 31.0 - 36.0 gm/ dL. The reference r jose was not used to interpret this result as normal/abnormal . RDW-SD (test code = 62.4 fL 35.1-46.3 H 18636-7) RDW-CV (test code = 17.9 % 12.0-15.5 H 788-0) Platelet count (test 310 K/uL 140-440 As part of CBC or code = 777-3) as an individu al orderable testi ng performed at [facility] [employer] [facility], [address] [facility], [address], [place], [place] [address] MPV (test code = 9.6 fL 4.0-10.4 09728-1) INRBC (test code = 0.0 % <=0.0 The INRBC 59913-2) (instrument NRB C) value reflects the enumerationof nucleated red b lood cells contained in a 200uL sampleo f whole blood analyzed by the instrument. Thi s value maydiffer from the NRBC v alue reported in a manual differential,wh ich is based on a 1 00 cell differenti al. As part of CBC testing perform ed at [facility] [employer] [id number] [facility], [address], [place], [place] [address] PAIGE (test code = PAIGE) Schedule same day tests/clinic appt Lab Interpretation Abnormal (test code = 69714-6) [facility] [place].[id number] 13:32:09 Test Item Value Reference Range Interpretation [...] individua l orderable testi ng performed at [facility] [employer] [facility], [address] [facility], [address], [place], [place] [address] [Automated mess age] The system whic h generated this result transmit lakhwinder reference range : 14.0 - 18.0 gm/ dL. The reference r jose was not used to interpret this result as normal/abnormal . Hct (test code = 45.2 % 40.0-54.0 As part of CBC or 4544-3) as an individua l orderable testi ng performed at [facility] [employer] [facility], [address] [facility], [address], [place], [place] [address] MCV (test code = [...] (test code = 62.4 fL 35.1-46.3 H 73019-9) RDW-CV (test code = 17.9 % 12.0-15.5 H 788-0) Platelet count (test 310 K/uL 140-440 As part of CBC or code = 777-3) as an individu al orderable testi ng performed at [facility] [employer] [facility], [address] [facility], [address], [place], [place] [address] MPV (test code = 9.6 fL 4.0-10.4 87286-1) INRBC (test code = 0.0 % <=0.0 The INRBC 54216-8) (instrument NRB C) value reflects the enumerationof nucleated red b lood cells contained in a 200uL sampleo f whole blood analyzed by the instrument. Thi s value maydiffer from the NRBC v alue reported in a manual differential,wh ich is based on a 1 00 cell differenti al. As part of CBC testing perform ed at [facility] Lab [employer] [id number] [facility], [address], [place], [place] [address] PAIGE (test code = PAIGE) Schedule same day tests/clinic appt Lab Interpretation Abnormal (test code = 57492-4) [facility] [place] [facility] [place].[id number] 13:32:09 Test Item Value Reference Range Interpretation [...] individua l orderable testi ng performed at [facility], [address] [facility], [address], [place], [place] [address] [Automated mess age] The system whic h generated this result transmit lakhwinder reference range : 14.0 - 18.0 gm/ dL. The reference r jose was not used to interpret this result as normal/abnormal . Hct (test code = 45.2 % 40.0-54.0 As part of CBC or 4544-3) as an individua l orderable testi ng performed at [facility], [facility], [address], [place], [place] [address] MCV (test code = [...] (test code = 62.4 fL 35.1-46.3 H 15831-0) RDW-CV (test code = 17.9 % 12.0-15.5 H 788-0) Platelet count (test 310 K/uL 140-440 As part of CBC or code = 777-3) as an individu al orderable testi ng performed at [facility], [address] [facility], [address], [place] [address] MPV (test code = 9.6 fL 4.0-10.4 23206-3) INRBC (test code = 0.0 % <=0.0 The INRBC 45143-6) (instrument NRB C) value reflects the enumerationof nucleated red b lood cells contained in a 200uL sampleo f whole blood analyzed by the instrument. Thi s value maydiffer from the NRBC v alue reported in a manual differential,wh ich is based on a 1 00 cell differenti al. As part of CBC testing perform ed at [facility] Lab [employer] [id number] merino [facility], [address], [place], [place] [address] PAIGE (test code = PAIGE) Schedule same day tests/clinic appt Lab Interpretation Abnormal (test code = 35604-0) [facility] 17:30:06 Test Item Value Reference Range Interpretation Comments T3 Total (test code = 3053-6) 153 ng/dL 80-200 [facility] 17:30:06 Test Item Value Reference Range Interpretation Comments T3 Total (test code = 3053-6) 153 ng/dL 80-200 [facility] 17:30:06 Test Item Value Reference Range Interpretation Comments T3 Total (test code = 3053-6) 153 ng/dL 80-200 [facility] 17:30:06 Test Item Value Reference Range Interpretation Comments T3 Total (test code = 3053-6) 153 ng/dL 80-200 [facility] 17:30:06 Test Item Value Reference Range Interpretation Comments T3 Total (test code = 3053-6) 153 ng/dL 80-200 [facility] 17:30:06 Test Item Value Reference Range Interpretation Comments T3 Total (test code = 3053-6) 153 ng/dL 80-200 [facility] 17:30:06 Test Item Value Reference Range Interpretation Comments T3 Total (test code = 3053-6) 153 ng/dL 80-200 [facility] 17:30:06 Test Item Value Reference Range Interpretation Comments T3 Total (test code = 3053-6) 153 ng/dL 80-200 [facility] 17:30:06 Test Item Value Reference Range Interpretation Comments T3 Total (test code = 3053-6) 153 ng/dL 80-200 [facility] [id number] 16:45:54 Test Item Value Reference Range Interpretation Comments T4 Free (test code 1.01 ng/dL 0.93-1.70 Testing P erformed at [facility] = 3024-7) Lab [employer] [facility], [address], [address], [address] [id number] 16:45:54 Test Item Value Reference Range Interpretation Comments T4 Free (test code 1.01 ng/dL 0.93-1.70 Testing P erformed at [facility] = 3024-7) Lab [employer] [facility], [address], [address], [address] [id number] 16:45:54 Test Item Value Reference Range Interpretation Comments T4 Free (test code 1.01 ng/dL 0.93-1.70 Testing P erformed at [facility] = 3024-7) Lab [facility], [address], [address], [address] [id number] 16:45:54 Test Item Value Reference Range Interpretation Comments T4 Free (test code 1.01 ng/dL 0.93-1.70 Testing P erformed at [facility] = 3024-7) Lab [employer] [facility], [address], [address], [address] [id number] 16:45:54 Test Item Value Reference Range Interpretation Comments T4 Free (test code 1.01 ng/dL 0.93-1.70 Testing P erformed at [facility] = 3024-7) Lab [employer] [facility], [address], [address], [address] [id number] 16:45:54 Test Item Value Reference Range Interpretation Comments T4 Free (test code 1.01 ng/dL 0.93-1.70 Testing P erformed at [facility] = 3024-7) Lab [facility], [address], [address], [address] [id number] 16:45:54 Test Item Value Reference Range Interpretation Comments T4 Free (test code 1.01 ng/dL 0.93-1.70 Testing P erformed at [facility] = 3024-7) Lab [employer] [facility], [address], [address], [address] [id number] 16:45:54 Test Item Value Reference Range Interpretation Comments T4 Free (test code 1.01 ng/dL 0.93-1.70 Testing P erformed at [facility] = 3024-7) Lab [employer] [facility], [address], [address], [address] [id number] 16:45:54 Test Item Value Reference Range Interpretation Comments T4 Free (test code 1.01 ng/dL 0.93-1.70 Testing P erformed at [facility] = 3024-7) [facility], [address], [address]TSH2022-12-09 16:45:52 Test Item Value Reference Range Interpretation Comments TSH (test code = 0.65 See_Comment Note: New M ethodology and 97955-0) Reference Range change effective 2017 at 1400 Testing Perform ed at [facility], [address], [place], [place] [address] [Automated mess age] The system which ge nerated this result transmit lakhwinder reference range : 0.27 - 4.20 mcunit/mL. The reference range was not used to interpr et this result as paras l/abnormal. [facility] 16:45:52 Test Item Value Reference Range Interpretation Comments TSH (test code = 0.65 See_Comment Note: New M ethodology and 04127-5) Reference Range change effective 2017 at 1400 Testing Perform ed at [facility] Lab [employer] [facility], [address], [address], [place] [address] [Automated mess age] The system which ge nerated this result transmit lakhwinedr reference range : 0.27 - 4.20 mcunit/mL. The reference range was not used to interpr et this result as paras l/abnormal. [facility] 16:45:52 Test Item Value Reference Range Interpretation Comments TSH (test code = 0.65 See_Comment Note: Gerson Ybarra ethodology and 90789-7) Reference Range change effective 2017 at 1400 Testing Perform ed at [facility] [employer] [facility], [address], [address], [place] [address] [Automated mess age] The system which ge nerated this result transmit lakhwinder reference range : 0.27 - 4.20 mcunit/mL. The reference range was not used to interpr et this result as paras l/abnormal. [facility] 16:45:52 Test Item Value Reference Range Interpretation Comments TSH (test code = 0.65 See_Comment Note: Gerson Ybarra ethodology and 45594-3) Reference Range change effective 2017 at 1400 Testing Perform ed at [facility] [employer] [facility], [address], [address], [place] [address] [Automated mess age] The system which ge nerated this result transmit lakhwinder reference range : 0.27 - 4.20 mcunit/mL. The reference range was not used to interpr et this result as paras l/abnormal. [facility] 16:45:52 Test Item Value Reference Range Interpretation Comments TSH (test code = 0.65 See_Comment Note: Gerson Ybarra ethodology and 74614-0) Reference Range change effective 2017 at 1400 Testing Perform ed at [facility] [employer] [facility], [address], [place] [address] [Automated mess age] The system which ge nerated this result transmit lakhwinder reference range : 0.27 - 4.20 mcunit/mL. The reference range was not used to interpr et this result as paras l/abnormal. [facility] 16:45:52 Test Item Value Reference Range Interpretation Comments TSH (test code = 0.65 See_Comment Note: New Tate ethodology and 42879-8) Reference Range change effective 2017 at 1400 Testing Perform ed at [facility] Lab [employer] [facility], [address], [place] [address] [Automated mess age] The system which ge nerated this result transmit lakhwinder reference range : 0.27 - 4.20 mcunit/mL. The reference range was not used to interpr et this result as paras l/abnormal. [facility] 16:45:52 Test Item Value Reference Range Interpretation Comments TSH (test code = 0.65 See_Comment Note: New M ethodology and 96592-8) Reference Range change effective 2017 at 1400 Testing Perform ed at [facility] [employer] [facility], [address], [place] [address] [Automated mess age] The system which ge nerated this result transmit lakhwinder reference range : 0.27 - 4.20 mcunit/mL. The reference range was not used to interpr et this result as paras l/abnormal. [facility] 16:45:52 Test Item Value Reference Range Interpretation Comments TSH (test code = 0.65 See_Comment Note: New M ethodology and 27301-6) Reference Range change effective 2017 at 1400 Testing Perform ed at [facility] [employer] [facility], [address], [place] [address] [Automated mess age] The system which ge nerated this result transmit lakhwinder reference range : 0.27 - 4.20 mcunit/mL. The reference range was not used to interpr et this result as paras l/abnormal. [facility] DentonTSH2022-12-09 16:45:52 Test Item Value Reference Range Interpretation Comments TSH (test code = 0.65 See_Comment Note: New M ethodology and 21158-1) Reference Range change effective 2017 at 1400 Testing Perform ed at [facility], [address], [place] [address] [Automated mess age] The system which ge nerated this result transmit lakhwinder reference range : 0.27 - 4.20 mcunit/mL. The reference range was not used to interpr et this result as paras l/abnormal. [facility]entonFractionated Inwedpjla3627-10-97 16:32:38 Test Item Value Reference Range Interpretation [...] concentrations above 28 g/L.Testing Per formed at [facility] Lab Ambulat ory Care [facility], [address], [address], [facility] [place] [place] [address] [Automate d message] The system Cartour generated this result transmitted ref erence range: <=1.2. T he reference range was not used to interpr et this result as normal/abnormal . Bili Direct (test See_Comment Indocyanin e Green (ICG) code = 1967-12) may cause fal sely elevated biliru bin results. Total and direct bilirubin must not be measured from s amples containing indo cyanine green. Testing Performed at [facility] Lab [facility], [address], [address], [place] [address] [Autom ated message] The Outbrain stem which generated this result transmitted ref erence range: <=0.3. T he reference range was not used to interpr et this result as normal/abnormal . Bili Indirect (test See Note 0.0-0.9 Unable t o calculate code = 1970-06) Indirect Bili ruffin result due to some par ameters are outside rep ortable rangeTesting Pe rformed at [facility] Lab Ambulat or Care dg, [address], [address], [place] [address] [facility]entonFractionated [id number] 16:32:38 Test Item Value Reference Range Interpretation [...] concentrations above 28 g/L.Testing Per formed at [facility] Lab Ambulat ory [facility], [address], [address], [place] [address] Bili Direct (test <=0.3 Indocyanin e Green (ICG) code = 1967-) may cause fal sely elevated biliru bin results. Total and direct bilirubin must not be measured from s amples containing indo cyanine green. Testing Performed at [facility] Lab Ambu latory Care [facility], [address], [address], [place] [address] Bili Indirect (test See Note 0.0-0.9 Unable t o calculate code = 1970-) Indirect Bili ruffin result due to some par ameters are outside rep ortable rangeTesting Pe rformed at [facility] Lab Ambulat ory [facility], [address], [address], [place] [address] [facility]entonGlomerular Filtration Rate 2022-06-07 16:32:36 Test Item Value Reference Range Interpretation Comments eGFR (test code = 103 See_Comment The [place]GFRcr [place] [address]) the 2020 CKD-EP I creatinine equation using [...] a for CKD. Testing Perform ed at [facility] Lab [facility] [facility], [address], [address], [place], [place] [address] [Automated message] The sy stem which generated this result transmitted ref erence range: >=60 mL/min/1.7 3 sq. m. The reference range was not used to interpret th is result as normal/abnormal . [facility]entonGlomerular Filtration Rate 2022-06-07 16:32:36 Test Item Value Reference Range Interpretation Comments eGFR (test code = 103 See_Comment [place] [address]) the 2020 CKD-EP I creatinine equation using [...] a for CKD. Testing Perform ed at [facility] Lab [facility], [address], [address], [place], [place] [address] [Automated message] The sy stem which generated this result transmitted ref erence range: >=60 mL/min/1.7 3 sq. m. The reference range was not used to interpret th is result as normal/abnormal . [facility]entonUric [id number] 16:32:35 Test Item Value Reference Range Interpretation Comments Uric Acid (test 5.3 mg/dL 3.4-7.0 Testing Perf ormed at [facility] code = 3084-1) Lab Ambulator y Care [facility], [address], [place] [address] [facility]entonU[facility] [id number] 16:32:35 Test Item Value Reference Range Interpretation Comments Uric Acid (test 5.3 mg/dL 3.4-7.0 Testing Perf ormed at [facility] code = 3084-1) [facility], [address], [address], [place] [address] [facility] [id number] 16:32:35 Test Item Value Reference Range Interpretation Comments Uric Acid (test 5.3 mg/dL 3.4-7.0 Testing Perf ormed at [facility] code = 3084-1) [facility], [address], [address], [place] [address] [facility] [id number] 16:32:35 Test Item Value Reference Range Interpretation Comments Uric Acid (test 5.3 mg/dL 3.4-7.0 Testing Perf ormed at [facility] code = 3084-1) [facility], [address], [address], [place] [address] [facility] [id number] 16:32:35 Test Item Value Reference Range Interpretation Comments Uric Acid (test 5.3 mg/dL 3.4-7.0 Testing Perf ormed at [facility] code = 3084-1) [facility], [address], [address], [place] [address] [facility] [id number] 16:32:35 Test Item Value Reference Range Interpretation Comments Uric Acid (test 5.3 mg/dL 3.4-7.0 Testing Perf ormed at [facility] code = 3084-1) [facility], [address], [address], [place] [address] [facility] [id number] 16:32:35 Test Item Value Reference Range Interpretation Comments Uric Acid (test 5.3 mg/dL 3.4-7.0 Testing Perf ormed at [facility] code = 3084-1) [facility], [address], [address], [place] [address] [facility] [id number] 16:32:35 Test Item Value Reference Range Interpretation Comments Uric Acid (test 5.3 mg/dL 3.4-7.0 Testing Perf ormed at B code = 3084-1) Lab Ambulator y Care [facility], [address], [address], [place] [address] [facility] [id number] 16:32:35 Test Item Value Reference Range Interpretation Comments Uric Acid (test 5.3 mg/dL 3.4-7.0 Testing Perf ormed at B code = 3084-1) Lab Ambulator y Care [facility], [address], [place] [address] [facility]entonTotal [id number] 16:32:34 Test Item Value Reference Range Interpretation Comments Total Protein (test 7.0 g/dL 6.4-8.3 Testing Performed at B code = 2885-2) Lab Ambulator y Care [facility], [address], [place] [address] [facility]entonTotal [id number] 16:32:34 Test Item Value Reference Range Interpretation Comments Total Protein (test 7.0 g/dL 6.4-8.3 Testing Performed at B code = 2885-2) Lab Ambulator y Care [facility], [address], [place] [address] [facility]entonMagnesium [id number] 16:32:33 Test Item Value Reference Range Interpretation Comments Magnesium (test code = 1.9 mg/dL 1.6-2.6 [place] [address]-9) [facility] Lab Ambulat ory Care [facility], [address], [place] [address] [facility]entonMagn[facility] [id number] 16:32:33 Test Item Value Reference Range Interpretation Comments Magnesium (test code = 1.9 mg/dL 1.6-2.6 [place] [address]-8) [facility] Lab Ambulat ory Care Bldg, [address], [address], [place] [address] [facility]Magn[facility] [id number] 16:32:33 Test Item Value Reference Range Interpretation Comments Magnesium (test code = 1.9 mg/dL 1.6-2.6 [place] [address]-3) [facility] Lab Ambulat ory Care Bld[facility], [address], [address], [place] [address] [facility]Magn[facility] [id number] 16:32:33 Test Item Value Reference Range Interpretation Comments Magnesium (test code = 1.9 mg/dL 1.6-2.6 [place] [address]-8) [facility] Lab [facility] ory Care Bld[facility], [address], [place] [address] [facility]Magn[facility] [id number] 16:32:33 Test Item Value Reference Range Interpretation Comments Magnesium (test code = 1.9 mg/dL 1.6-2.6 [place] [address]-5) [facility] Lab Ambulat ory Care dg, [address], [address], [place] [address] [facility]Magn[facility] [id number] 16:32:33 Test Item Value Reference Range Interpretation Comments Magnesium (test code = 1.9 mg/dL 1.6-2.6 [place] [address]-7) [facility] Lab Ambulat ory Care dg, [address], [address], [place] [address] [facility]Magn[facility] [id number] 16:32:33 Test Item Value Reference Range Interpretation Comments Magnesium (test code = 1.9 mg/dL 1.6-2.6 [place] [address]-5) [facility] Lab [facility] Care [facility], [address], [place] [address] [facility]Magn[facility] [id number] 16:32:33 Test Item Value Reference Range Interpretation Comments Magnesium (test code = 1.9 mg/dL 1.6-2.6 [place] [address]-1) [facility] Lab [facility]ulat ory Care Bld[facility], [address], [address], [place] [address] [facility]Magn[facility] [id number] 16:32:33 Test Item Value Reference Range Interpretation Comments Magnesium (test code = 1.9 mg/dL 1.6-2.6 [place] [address]-9) [facility] Lab Ambulat ory Care Bld[facility], [address], [place] [address] [facility]entonCal[facility] [id number] 16:32:32 Test Item Value Reference Range Interpretation Comments Calcium Lvl (test 9.3 mg/dL 8.4-10.2 Testing Pe rformed at code = 77942-0) [facility] Lab Ambu latory Care Bldg, [address], [address], [place], [place] [address] [facility]Cal[facility] [id number] 16:32:32 Test Item Value Reference Range Interpretation Comments Calcium Lvl (test 9.3 mg/dL 8.4-10.2 Testing Pe rformed at code = 92120-6) [facility] Lab Ambu latory Care Bldg, [address], [address], [place], [place] [address] [facility] DentonAlkaline [id number] 16:32:31 Test Item Value Reference Range Interpretation Comments Alk Phos (test code = 91 U/L 40-129 Testin g Performed at [place] [address]) Lab [facility], [address], [address], [place] [address] [facility]entonAlkaline [id number] 16:32:31 Test Item Value Reference Range Interpretation Comments Alk Phos (test code = 91 U/L 40-129 Testin g Performed at [place] [address]) [facility], [address], [address], [place] [address] [facility]entonAlbumin [id number] 16:32:30 Test Item Value Reference Range Interpretation Comments Albumin Lvl (test code 3.8 See_Comment Testi ng Performed at B = 1751-7) Lab [facility], [address], [address], [place] [address] [Automated mess age] The system which ge nerated this result tra nsmitted reference range : 3.5 - 5.2 gm/dL. The refe rence range was not used to interpret this result as normal/abnormal . [facility] DentonAlbumin [id number] 16:32:30 Test Item Value Reference Range Interpretation Comments Albumin Lvl (test code 3.8 See_Comment Testi ng Performed at [facility] = 1751-7) Lab [facility], [address], [address], [place] [address] [Automated mess age] The system which ge nerated this result tra nsmitted reference range : 3.5 - 5.2 gm/dL. The refe rence range was not used to interpret this result as normal/abnormal . [facility] DentonAspartate Aminotransferase 2022-06-07 16:32:29 Test Item Value Reference Range Interpretation Comments AST (test code = 14 U/L See_Comment Testing Per formed at B 1920-8) [facility], [address], [address], [place] [address] [Automated mess age] The system which ge nerated this result transmit lakhwinder reference range : <=40. The reference range was not used to interpr et this result as paras l/abnormal. [facility] DentonAspartate Aminotransferase 2022-06-07 16:32:29 Test Item Value Reference Range Interpretation Comments AST (test code = 14 U/L <=40 Testing Per formed at B 1920-8) Lab [facility], [address], [place] [address] [facility]entonALT2022-12-09 16:32:28 Test Item Value Reference Range Interpretation Comments ALT (test code = 6 U/L See_Comment Testing Per formed at B 1742-6) Lab [facility], [address], [address], [place] [address] [Automated mess age] The system which ge nerated this result transmit lakhwinder reference range : <=41. The reference range was not used to interpr et this result as paras l/abnormal. [facility] DentonALT2022-12-09 16:32:28 Test Item Value Reference Range Interpretation Comments ALT (test code = 6 U/L <=41 Testing Per formed at [facility] 1742-6) Lab [facility], [address], [place] [address] [facility] DentonElectrolyte [id number] 16:32:27 Test Item Value Reference Range Interpretation Comments Sodium Lvl (test code = 138 See_Comment Test ing Performed at [facility] 2951-2) [facility], [address], [address], [place] [address] [Automated mess age] The system which ge nerated this result tra nsmitted reference range : 136 - 145 mEq/L. The reference range was not u sed to interpret this result as normal/abnormal . Potassium Lvl (test 3.8 See_Comment Testing Performed at B code = 2823-3) Lab Ambulator y Care [facility], [address], [address], [place] [address] [Automated mess age] The system which ge nerated this result tra nsmitted reference range : 3.5 - 5.1 mEq/L. The reference range was not u sed to interpret this result as normal/abnormal . Chloride (test code = 103 See_Comment Testin g Performed at [facility] 5-0) [facility], [address], [address], [place] [address] [Automated mess age] The system which ge nerated this result tra nsmitted reference range : 98 - 107 mEq/L. The refe rence range was not u sed to interpret this result as normal/abnormal . CO2 (test code = 25 See_Comment Testing Per formed at [facility] 2028-02) Lab [facility], [address], [address], [place] [address] [Automated mess age] The system which ge nerated this result tra nsmitted reference range : 22 - 29 mEq/L. The refe rence range was not u sed to interpret this result as normal/abnormal . Anion Gap (test code = 10 See_Comment Testi ng Performed at [facility] [address]-6) [facility], [address], [address], [place] [address] [Automated mess age] The system which ge nerated this result tra nsmitted reference range : 4 - 14 mEq/L. The refe rence range was not u sed to interpret this result as normal/abnormal . [facility] DentonElectrolyte [id number] 16:32:27 Test Item Value Reference Range Interpretation Comments Sodium Lvl (test code = 138 See_Comment Test ing Performed at [facility] 2951-2) [facility], [address], [address], [place] [address] [Automated mess age] The system which ge nerated this result tra nsmitted reference range : 136 - 145 mEq/L. The reference range was not u sed to interpret this result as normal/abnormal . Potassium Lvl (test 3.8 See_Comment Testing Performed at [facility] code = 2823-3) [facility], [address], [address], [place] [address] [Automated mess age] The system which ge nerated this result tra nsmitted reference range : 3.5 - 5.1 mEq/L. The reference range was not u sed to interpret this result as normal/abnormal . Chloride (test code = 103 See_Comment Testin g Performed at [facility] 0) [facility], [address], [address], [place] [address] [Automated mess age] The system which ge nerated this result tra nsmitted reference range : 98 - 107 mEq/L. The refe rence range was not u sed to interpret this result as normal/abnormal . CO2 (test code = 25 See_Comment Testing Per formed at [facility] 2028-02) [facility], [address], [address], [place] [address] [Automated mess age] The system which ge nerated this result tra nsmitted reference range : 22 - 29 mEq/L. The refe rence range was not u sed to interpret this result as normal/abnormal . Anion Gap (test code = 10 See_Comment Testi ng Performed at [facility] [address]-3) Lab [facility], [address], [address], [place] [address] [Automated mess age] The system which ge nerated this result tra nsmitted reference range : 4 - 14 mEq/L. The refe rence range was not u sed to interpret this result as normal/abnormal . [facility].Serum [id number] 16:32:26 Test Item Value Reference Range Interpretation Comments Creatinine (test code = 0.66 mg/dL 0.67-1.17 L Test ing Performed 2160-0) at [facility] Lab [facility] Installer [facility], [address], [place], [place] [address] Lab Interpretation (test Abnormal code = 26014-0) [facility].Serum [id number] 16:32:26 Test Item Value Reference Range Interpretation Comments Creatinine (test code = 0.66 mg/dL 0.67-1.17 L Test ing Performed 2160-0) at [facility] Lab [facility], [address], [place], [place] [address] Lab Interpretation (test Abnormal code = 18213-2) [facility]entonBUN2022-12-09 16:32:25 Test Item Value Reference Range Interpretation Comments BUN (test code = 3094-0) 5 mg/dL 6-23 L Betty ting Performed at [facility], [address], [place] [address] Lab Interpretation (test Abnormal code = 60117-0) [facility]entonBUN2022-12-09 16:32:25 Test Item Value Reference Range Interpretation Comments BUN (test code = 3094-0) 5 mg/dL 6-23 L Betty ting Performed at [facility] Lab [facility], [address], [place] [address] Lab Interpretation (test Abnormal code = 80685-3) [facility]entonGlucose [id number] 16:32:24 Test Item Value Reference Range Interpretation Comments Glucose Level (test 96 mg/dL 70-99 Effectiv e 01/24/16, the code = 2345-7) glucose refer ence intervals have been updated based o n [employer] octaviano delines (Standards of [...] g Performed at [facility] Lab [facility], [address], [place] [address] [facility]entonGlucose [id number] 16:32:24 Test Item Value Reference Range Interpretation Comments Glucose Level (test 96 mg/dL 70-99 Effectiv e 01/24/16, the code = 2345-7) glucose refer ence intervals have been updated based o n [employer] octaviano delines (Standards of [...] g Performed at [facility] Lab [facility], [address], [place] [address] [facility]entonDifferential2022-12-09 16:09:54 Test Item Value Reference Range Interpretation Comments Neutrophil % (test code 53.5 % 42.0-66.0 As p art of = 770-8) Differential performed at [facility] Lab [facility] dg, [address], [place] [address] Lymphocyte % (test code 38.2 % 24.0-44.0 = 736-9) Monocyte % (test code = 7.0 % 2.0-7.0 5905-5) Eosinophil % (test code 0.7 % 1.0-4.0 L = 713-8) Basophil % (test code = 0.3 % 0.0-1.0 706-2) IGRE % (test code = 0.3 % 0.0-0.4 IGRE % c ount includes 92671-5) Metamyelocytes, Myelocytes, and Promyelocytes. As part of Differe ntial performed at [facility], [address], [facility] [place] [place] [address] Neutrophil Abs (test 3.56 K/uL 1.70-7.30 code = 751-8) Lymphocyte Abs (test 2.55 K/uL 1.00-4.80 code = 731-0) Monocyte Abs (test code 0.47 K/uL 0.08-0.70 = 742-7) Eosinophil Abs (test 0.05 K/uL 0.04-0.40 code = 711-2) Basophil Abs (test code 0.02 K/uL 0.00-0.10 = 704-7) IG Abs (test code = 0.02 K/uL 0.00-0.04 62576-9) Lab Interpretation Abnormal (test code = 07296-0) [facility] JdiefyYeqycqulidbf2038-84-67 16:09:54 Test Item Value Reference Range Interpretation Comments Neutrophil % (test code 53.5 % 42.0-66.0 As p art of = 770-8) Differential performed at [facility], [facility], [place] [address] Lymphocyte % (test code 38.2 % 24.0-44.0 = 736-9) Monocyte % (test code = 7.0 % 2.0-7.0 5905-5) Eosinophil % (test code 0.7 % 1.0-4.0 L = 713-8) Basophil % (test code = 0.3 % 0.0-1.0 706-2) IGRE % (test code = 0.3 % 0.0-0.4 IGRE % c ount includes 92578-9) Metamyelocytes, Myelocytes, and Promyelocytes. As part of Differe ntial performed at [facility] Lab [facility], [address], [place] [address] Neutrophil Abs (test 3.56 K/uL 1.70-7.30 code = 751-8) Lymphocyte Abs (test 2.55 K/uL 1.00-4.80 code = 731-0) Monocyte Abs (test code 0.47 K/uL 0.08-0.70 = 742-7) Eosinophil Abs (test 0.05 K/uL 0.04-0.40 code = 711-2) Basophil Abs (test code 0.02 K/uL 0.00-0.10 = 704-7) IG Abs (test code = 0.02 K/uL 0.00-0.04 04930-2) Lab Interpretation Abnormal (test code = 91520-1) [facility] [place].[id number] 16:09:39 Test Item Value Reference Range Interpretation Comments WBC (test code = 6.7 K/uL 4.0-11.0 6690-2) RBC (test code = 789-8) 3.87 See_Comment L [Au tomated message] The system [employer] generated this result transmitted ref erence range: 4.50 - 6 .00 M/uL. The refer ence range was not u sed to interpret this result as normal/abnor mal. Hgb (test code = 718-7) 11.3 See_Comment L As p art of CBC or as an individual orderable testi ng performed at [facility] Lab [facility] Installer [facility], [address], [place] [address] [Automate d message] The sy stem which generated this result transmit lakhwinder reference range : 14.0 - 18.0 gm/dL. T he reference range was not used to int erpret this result as normal/abnormal . Hct (test code = 35.1 % 40.0-54.0 L As part of CBC or as 4544-3) an individual orderable testi ng performed at [facility] [employer] [facility], [address], [place] [address] MCV (test code = 787-2) 91 fL 82-98 MCH (test code = 785-6) 29.2 pg 27.0-31.0 MCHC (test code = 32.2 See_Comment [Automate d message] 786-4) The system [employer] generated this result transmitted ref erence range: 31.0 - 3 6.0 gm/dL. The refe rence range was not u sed to interpret this result as normal/abnor mal. RDW-SD (test code = 52.4 fL 35.1-46.3 H 77712-8) RDW-CV (test code = 15.8 % 12.0-15.5 H 788-0) Platelet count (test 304 K/uL 140-440 As part of CBC or as code = 777-3) an individual orderable testi ng performed at [facility], [address], [address], [facility] [address] MPV (test code = 9.7 fL 4.0-10.4 08023-1) INRBC (test code = 0.0 % See_Comment The INRBC (instrument 13970-6) NRBC) value ref lects the enumeration of nucleated red b lood cells contained in a 200uL sampleof whole blood analyzed by the instrument. Thi s value maydiffer from the NRBC value repo rted in a manual differential,wh ich is based on a 100 cell differential. A s part of CBC testing performed at [facility] [id number], [address], [place] [address] [Automated mess age] The system Cartour generated this result transmitted ref erence range: <=0.0. T he reference range was not used to int erpret this result as normal/abnormal . Lab Interpretation Abnormal (test code = 16649-4) [facility] [place].[id number] 16:09:39 Test Item Value Reference Range Interpretation Comments WBC (test code = 6.7 K/uL 4.0-11.0 6690-2) RBC (test code = 789-8) 3.87 See_Comment L [Au tomated message] The system Cartour generated this result transmitted ref erence range: 4.50 - 6 .00 M/uL. The refer ence range was not u sed to interpret this result as normal/abnor mal. Hgb (test code = 718-7) 11.3 See_Comment L As p art of CBC or as an individual orderable testi ng performed at [facility], [address], [address], [place] [address] [Automate d message] The sy stem which generated this result transmit lakhwinder reference range : 14.0 - 18.0 gm/dL. T he reference range was not used to int erpret this result as normal/abnormal . Hct (test code = 35.1 % 40.0-54.0 L As part of CBC or as 4544-3) an individual orderable testi ng performed at [facility], [address], [address], [place] [address] MCV (test code = 787-2) 91 fL 82-98 MCH (test code = 785-6) 29.2 pg 27.0-31.0 MCHC (test code = 32.2 See_Comment [Automate d message] 786-4) The system [employer] h generated this result transmitted ref erence range: 31.0 - 3 6.0 gm/dL. The refe rence range was not u sed to interpret this result as normal/abnor mal. RDW-SD (test code = 52.4 fL 35.1-46.3 H 09208-5) RDW-CV (test code = 15.8 % 12.0-15.5 H 788-0) Platelet count (test 304 K/uL 140-440 As part of CBC or as code = 777-3) an individual orderable testi ng performed at [facility], [address], [address], [place] [address] MPV (test code = 9.7 fL 4.0-10.4 90869-7) INRBC (test code = 0.0 % <=0.0 The INRBC (instrument 09391-7) NRBC) value ref lects the enumeration of nucleated red b lood cells contained in a 200uL sampleof whole blood analyzed by the instrument. Thi s value maydiffer from the NRBC value repo rted in a manual differential,wh ich is based on a 100 cell differential. A s part of CBC testing performed at [facility] [id number], [place], [place] [address] Lab Interpretation Abnormal (test code = 14746-5) [facility] Yxvwbuj2780-56-62 23:29:29 Test Item Value Reference Range Interpretation Comments Final Report (test No Fungi isolated. code = 8488) Path Review - Culture yield may be Fungus (test code = affected by sample 8479) quality, prior treatment, and transportation conditions.The results have been reviewed and electronically signed by Pathologist:SRUTHI ZABALA MD #[id number] [facility] Blood Bzqpciy8110-38-86 23:29:29 Test Item Value Reference Range Interpretation Comments Final Report (test No Fungi isolated. code = 8488) Path Review - Culture yield may be Fungus (test code = affected by sample 8479) quality, prior treatment, and transportation conditions.The results have been reviewed and electronically signed by Pathologist:SRUTHI ZAABLA MD #[id number] [facility] Blood Oygwdxk5200-43-71 23:29:29 Test Item Value Reference Range Interpretation Comments Final Report (test No Fungi isolated. code = 8488) Path Review - Culture yield may be Fungus (test code = affected by sample 8479) quality, prior treatment, and transportation conditions.The results have been reviewed and electronically signed by Pathologist:SRUTHI ZABALA MD #[id number] [facility] Blood Kpynttl7707-35-71 23:29:29 Test Item Value Reference Range Interpretation Comments Final Report (test No Fungi isolated. code = 8488) Path Review - Culture yield may be Fungus (test code = affected by sample 8479) quality, prior treatment, and transportation conditions.The results have been reviewed and electronically signed by Pathologist:SRUTHI ZABALA MD #[id number] [facility] Blood Abzihpz4522-30-08 23:29:29 Test Item Value Reference Range Interpretation Comments Final Report (test No Fungi isolated. code = 8488) Path Review - Culture yield may be Fungus (test code = affected by sample 8479) quality, prior treatment, and transportation conditions.The results have been reviewed and electronically signed by Pathologist:SRUTHI ZABALA MD #[id number] [facility] Vqvcbeq5618-91-98 23:29:29 Test Item Value Reference Range Interpretation Comments Final Report (test No Fungi isolated. code = 8488) Path Review - Culture yield may be Fungus (test code = affected by sample 8479) quality, prior treatment, and transportation conditions.The results have been reviewed and electronically signed by Pathologist:SRUTHI ZABALA MD #[id number] [facility] Dookpte4156-67-43 23:29:29 Test Item Value Reference Range Interpretation Comments Final Report (test No Fungi isolated. code = 8488) Path Review - Culture yield may be Fungus (test code = affected by sample 8479) quality, prior treatment, and transportation conditions.The results have been reviewed and electronically signed by Pathologist:SRUTHI ZABALA MD #[id number] [facility]2022-04-30 01:20:36 Test Item Value Reference Range Interpretation Comments Final Report (test No growth code = 8488) Path Review - Culture yield may be Bottle/Isolator affected by sample (test code = 8499) quality, prior treatment, and transportation conditions....The results have been reviewed and electronically signed by Pathologist:Fredy Mercado MD, PhD #[id number] [facility]2022-04-30 01:20:36 Test Item Value Reference Range Interpretation Comments Final Report (test No growth code = 8488) Path Review - Culture yield may be Bottle/Isolator affected by sample (test code = 8499) quality, prior treatment, and transportation conditions....The results have been reviewed and electronically signed by Pathologist:Fredy Mercado MD, PhD #[id number] [facility]2022-04-30 01:20:36 Test Item Value Reference Range Interpretation Comments Final Report (test No growth code = 8488) Path Review - Culture yield may be Bottle/Isolator affected by sample (test code = 8499) quality, prior treatment, and transportation conditions....The results have been reviewed and electronically signed by Pathologist:Fredy Mercado MD, PhD #[id number] [facility] Ybwklpa3233-09-73 01:20:36 Test Item Value Reference Range Interpretation Comments Final Report (test No growth code = 8488) Path Review - Culture yield may be Bottle/Isolator affected by sample (test code = 8499) quality, prior treatment, and transportation conditions....The results have been reviewed and electronically signed by Pathologist:Fredy Mercado MD, PhD #[id number] [facility]2022-04-30 01:20:36 Test Item Value Reference Range Interpretation Comments Final Report (test No growth code = 8488) Path Review - Culture yield may be Bottle/Isolator affected by sample (test code = 8499) quality, prior treatment, and transportation conditions....The results have been reviewed and electronically signed by Pathologist:Fredy Mercado MD, PhD #[id number] [facility]2022-04-30 01:20:36 Test Item Value Reference Range Interpretation Comments Final Report (test No growth code = 8488) Path Review - Culture yield may be Bottle/Isolator affected by sample (test code = 8499) quality, prior treatment, and transportation conditions....The results have been reviewed and electronically signed by Pathologist:Fredy Mercado MD, PhD #[id number] [facility]2022-04-30 01:20:36 Test Item Value Reference Range Interpretation Comments Final Report (test No growth code = 8488) Path Review - Culture yield may be Bottle/Isolator affected by sample (test code = 8499) quality, prior treatment, and transportation conditions....The results have been reviewed and electronically signed by Pathologist:Fredy Mercado MD, PhD #[id number] [facility] 17:07:36 Test Item Value Reference Range Interpretation Comments Total Cells (test code 100 = 94286-1) Neutrophil % (test code 63.0 % 42.0-66.0 The Neutrophil count = 81036-5) includes Bands. Lymphocyte % (test code 20.0 % 24.0-44.0 L = 737-7) Monocyte % (test code = 9.0 % 2.0-7.0 H 744-3) Eosinophil % (test code 2.0 % 1.0-4.0 = 714-6) Metamyelocyte % (test 6.0 % See_Comment H The Me tamyelocyte code = 740-1) count includes Myelocytes. [Automated mess age] The system Cartour generated this result transmitted ref erence range: <=0.0. T he reference range was not used to int erpret this result as normal/abnormal . NRBC (test code = 1.0 See_Comment H [Automate d message] 07304-9) The system Cartour generated this result transmitted ref erence range: [...] PLT Morph (test code = Normal Normal 18726-4) Anisocytosis (test code Present Not Present A = 702-1) Poik (test code = Present Not Present A 779-9) Polychromasia (test Present Not Present A code = 18674-3) Ovalocyte (test code = Present Not Present A 774-0) Tear Drop (test code = Present Not Present A 7791-7) Lab Interpretation Abnormal (test code = 13780-0) [facility] RoqigfDqeumdcqheay2293-38-77 17:07:36 Test Item Value Reference Range Interpretation Comments Total Cells (test code 100 = 69114-9) Neutrophil % (test code 63.0 % 42.0-66.0 The Neutrophil count = 36722-3) includes Bands. Lymphocyte % (test code 20.0 % 24.0-44.0 L = 737-7) Monocyte % (test code = 9.0 % 2.0-7.0 H 744-3) Eosinophil % (test code 2.0 % 1.0-4.0 = 714-6) Metamyelocyte % (test 6.0 % See_Comment H The Me tamyelocyte code = 740-1) count includes Myelocytes. [Automated mess age] The system Cartour generated this result transmitted ref erence range: <=0.0. T he reference range was not used to int erpret this result as normal/abnormal . NRBC (test code = 1.0 See_Comment H [Automate d message] 16890-6) The system Cartour generated this result transmitted ref erence range: [...] PLT Morph (test code = Normal Normal 32970-8) Anisocytosis (test code Present Not Present A = 702-1) Poik (test code = Present Not Present A 779-9) Polychromasia (test Present Not Present A code = 02649-7) Ovalocyte (test code = Present Not Present A 774-0) Tear Drop (test code = Present Not Present A 7791-7) Lab Interpretation Abnormal (test code = 50147-0) [facility] AysdwdSllbuwhskbhd4878-71-98 17:07:36 Test Item Value Reference Range Interpretation Comments Total Cells (test code 100 = 53920-7) Neutrophil % (test code 63.0 % 42.0-66.0 The Neutrophil count = 54092-5) includes Bands. Lymphocyte % (test code 20.0 % 24.0-44.0 L = 737-7) Monocyte % (test code = 9.0 % 2.0-7.0 H 744-3) Eosinophil % (test code 2.0 % 1.0-4.0 = 714-6) Metamyelocyte % (test 6.0 % See_Comment H The Ar tamyelocyte code = 740-1) count includes Myelocytes. [Automated mess age] The system Cartour generated this result transmitted ref erence range: <=0.0. T he reference range was not used to int erpret this result as normal/abnormal . NRBC (test code = 1.0 See_Comment H [Automate d message] 31051-7) The system Cartour generated this result transmitted ref erence range: [...] PLT Morph (test code = Normal Normal 18455-2) Anisocytosis (test code Present Not Present A = 702-1) Poik (test code = Present Not Present A 779-9) Polychromasia (test Present Not Present A code = 33102-2) Ovalocyte (test code = Present Not Present A 774-0) Tear Drop (test code = Present Not Present A 7791-7) Lab Interpretation Abnormal (test code = 88428-8) [facility] [place].[id number] 17:07:32 Test Item Value Reference Range Interpretation Comments WBC (test code = 11.5 K/uL 4.0-11.0 H 6690-2) RBC (test code = 789-8) 4.25 See_Comment L [Au tomated message] The system Cartour generated this result transmitted ref erence range: 4.50 - 6 .00 M/uL. The refer ence range was not u sed to interpret this result as normal/abnor mal. Hgb (test code = 718-7) 12.1 See_Comment L [Au tomated message] The system Cartour generated this result transmitted ref erence range: [...] See_Comment [Automate d message] 786-4) The system Cartour generated this result transmitted ref erence range: 31.0 - 3 6.0 gm/dL. The refe rence range was not u sed to interpret this result as normal/abnor mal. RDW-SD (test code = 57.5 fL 35.1-46.3 H 26831-0) RDW-CV (test code = 17.4 % 12.0-15.5 H 788-0) Platelet count (test 313 K/uL 140-440 code = 777-3) MPV (test code = 8.8 fL 4.0-10.4 35565-4) INRBC (test code = 0.2 % See_Comment H The INRBC (instrument 76764-7) NRBC) value ref lects the enumeration of nucleated red b lood cells contained in a 200uL sampleof whole blood analyzed by the instrument. Thi s value maydiffer from the NRBC value reported in a m anual differential,wh ich is based on a 100 cell differential. [Automated mess age] The system Cartour generated this result transmitted ref erence range: <=0.0. T he reference range was not used to int erpret this result as normal/abnormal . Lab Interpretation Abnormal (test code = 48266-3) [facility] [place].[id number] 17:07:32 Test Item Value Reference Range Interpretation Comments WBC (test code = 11.5 K/uL 4.0-11.0 H 6690-2) RBC (test code = 789-8) 4.25 See_Comment L [Au tomated message] The system Cartour generated this result transmitted ref erence range: 4.50 - 6 .00 M/uL. The refer ence range was not u sed to interpret this result as normal/abnor mal. Hgb (test code = 718-7) 12.1 See_Comment L [Au tomated message] The system Cartour generated this result transmitted ref erence range: [...] See_Comment [Automate d message] 786-4) The system Cartour generated this result transmitted ref erence range: 31.0 - 3 6.0 gm/dL. The refe rence range was not u sed to interpret this result as normal/abnor mal. RDW-SD (test code = 57.5 fL 35.1-46.3 H 70361-2) RDW-CV (test code = 17.4 % 12.0-15.5 H 788-0) Platelet count (test 313 K/uL 140-440 code = 777-3) MPV (test code = 8.8 fL 4.0-10.4 10224-4) INRBC (test code = 0.2 % See_Comment H The INRBC (instrument 11135-6) NRBC) value ref lects the enumeration of nucleated red b lood cells contained in a 200uL sampleof whole blood analyzed by the instrument. Thi s value maydiffer from the NRBC value reported in a m anual differential,wh ich is based on a 100 cell differential. [Automated mess age] The system Cartour generated this result transmitted ref erence range: <=0.0. T he reference range was not used to int erpret this result as normal/abnormal . Lab Interpretation Abnormal (test code = 35974-4) [facility] [place].[id number] 17:07:32 Test Item Value Reference Range Interpretation Comments WBC (test code = 11.5 K/uL 4.0-11.0 H 6690-2) RBC (test code = 789-8) 4.25 See_Comment L [Au tomated message] The system Cartour generated this result transmitted ref erence range: 4.50 - 6 .00 M/uL. The refer ence range was not u sed to interpret this result as normal/abnor mal. Hgb (test code = 718-7) 12.1 See_Comment L [Au tomated message] The system [employer] generated this result transmitted ref erence range: [...] See_Comment [Automate d message] 786-4) The system Cartour generated this result transmitted ref erence range: 31.0 - 3 6.0 gm/dL. The refe rence range was not u sed to interpret this result as normal/abnor mal. RDW-SD (test code = 57.5 fL 35.1-46.3 H 25261-4) RDW-CV (test code = 17.4 % 12.0-15.5 H 788-0) Platelet count (test 313 K/uL 140-440 code = 777-3) MPV (test code = 8.8 fL 4.0-10.4 81078-2) INRBC (test code = 0.2 % See_Comment H The INRBC (instrument 88630-0) NRBC) value ref lects the enumeration of nucleated red b lood cells contained in a 200uL sampleof whole blood analyzed by the instrument. Thi s value maydiffer from the NRBC value reported in a m anual differential,wh ich is based on a 100 cell differential. [Automated mess age] The system Cartour generated this result transmitted ref erence range: <=0.0. T he reference range was not used to int erpret this result as normal/abnormal . Lab Interpretation Abnormal (test code = 76287-4) [facility] Tuzmw1138-15-69 11:49:22 Test Item Value Reference Range Interpretation [...] to interpret this result as normal/abnormal . [facility] Gezps5116-86-80 11:49:22 Test Item Value Reference Range Interpretation [...] to interpret this result as normal/abnormal . [facility] Ebewq8325-73-07 11:49:22 Test Item Value Reference Range Interpretation [...] to interpret this result as normal/abnormal . [facility]raction[facility] Ikqllgfgu7932-51-26 11:49:21 Test Item Value Reference Range Interpretation [...] wit h IgG concentrations above 28 g/L. [[employer]] The system which ge nerated this result transmit lakhwinder reference range: <=1.2 mg /dL. The reference range was not used to interpret th is result as normal/abnormal . [facility]raction[facility] Roluotyvo4208-60-45 11:49:21 Test Item Value Reference Range Interpretation [...] wit h IgG concentrations above 28 g/L. [[employer]] The system which [employer] nerated this result transmit lakhwinder reference range: <=1.2 mg /dL. The reference range was not used to interpret th is result as normal/abnormal . [facility] Iplswzgyj7074-00-97 11:49:21 Test Item Value Reference Range Interpretation [...] wit h IgG concentrations above 28 g/L. [[employer]] The system which ge nerated this result transmit lakhwinder reference range: <=1.2 mg /dL. The reference range was not used to interpret th is result as normal/abnormal . [facility] [place] Rate 2021-10-24 11:49:20 Test Item Value Reference Range Interpretation Comments eGFR-AA (test code 107 See_Comment Normal eG FR: >= 60 = 78385-6) mL/min/1.73 m2N ote: The eGFR is calculated [...] See_Comment Normal e GFR: >= 60 = 01571-8) mL/min/1.73 m2N ote: The eGFR is calculated [...] is result as normal/abnormal . [facility] 2021-10-24 11:49:20 Test Item Value Reference Range Interpretation Comments eGFR-AA (test code 107 See_Comment Normal eG FR: >= 60 = 45354-8) mL/min/1.73 m2N ote: The eGFR is calculated [...] See_Comment Normal e GFR: >= 60 = 00161-5) mL/min/1.73 m2N ote: The eGFR is calculated [...] is result as normal/abnormal . [facility] 2021-10-24 11:49:20 Test Item Value Reference Range Interpretation Comments eGFR-AA (test code 107 See_Comment Normal eG FR: >= 60 = 79546-9) mL/min/1.73 m2N ote: The eGFR is calculated [...] See_Comment Normal e GFR: >= 60 = 09965-3) mL/min/1.73 m2N ote: The eGFR is calculated [...] is result as normal/abnormal . [facility] Gixfulh2164-21-74 11:49:19 Test Item Value Reference Range Interpretation Comments Total Protein (test code = 2885-2) 6.3 g/dL 6.4-8.3 L Lab Interpretation (test code = Abnormal 36611-9) [facility] Hknkqcv0494-38-46 11:49:19 Test Item Value Reference Range Interpretation Comments Total Protein (test code = 2885-2) 6.3 g/dL 6.4-8.3 L Lab Interpretation (test code = Abnormal 60985-8) [facility] Xvninwk9564-36-69 11:49:19 Test Item Value Reference Range Interpretation Comments Total Protein (test code = 2885-2) 6.3 g/dL 6.4-8.3 L Lab Interpretation (test code = Abnormal 42905-6) [facility] Tgbpp2604-43-32 11:49:18 Test Item Value Reference Range Interpretation Comments Magnesium (test code = 40551-9) 2.1 mg/dL 1.6-2.6 [facility] Dtrhi0646-36-97 11:49:18 Test Item Value Reference Range Interpretation Comments Magnesium (test code = 62757-2) 2.1 mg/dL 1.6-2.6 [facility] Antlk3853-58-14 11:49:18 Test Item Value Reference Range Interpretation Comments Magnesium (test code = 83287-6) 2.1 mg/dL 1.6-2.6 [facility] Qlmcjwhesss8819-47-27 11:49:17 Test Item Value Reference Range Interpretation Comments Alk Phos (test code = 6768-6) 59 U/L 40-129 [facility] Wyswvlmynsf0430-42-05 11:49:17 Test Item Value Reference Range Interpretation Comments Alk Phos (test code = 6768-6) 59 U/L 40-129 [facility] Vgnyblbzfvy6297-21-34 11:49:17 Test Item Value Reference Range Interpretation Comments Alk Phos (test code = 6768-6) 59 U/L 40-129 [facility]ALT2022-04-27 11:49:16 Test Item Value Reference Range Interpretation Comments ALT (test code = 14 U/L See_Comment [Automated message] The 1741-11) system which ge nerated this result transmit lakhwinder reference range : <=41. The reference range was not used to interpr et this result as paras l/abnormal. [facility] Test Item Value Reference Range Interpretation Comments ALT (test code = 14 U/L See_Comment [Automated message] The 1741-11) system which ge nerated this result transmit lakhwinder reference range : <=41. The reference range was not used to interpr et this result as paras l/abnormal. [facility] 11:49:16 Test Item Value Reference Range Interpretation Comments ALT (test code = 14 U/L See_Comment [Automated message] The 1741-11) system which ge nerated this result transmit lakhwinder reference range : <=41. The reference range was not used to interpr et this result as paras l/abnormal. [facility].Serum Odzwavjfdb3034-72-33 11:49:15 Test Item Value Reference Range Interpretation Comments Creatinine (test code = 2160-0) 0.81 mg/dL 0.67-1.17 [facility].Serum Iemtsdhpjm1423-76-96 11:49:15 Test Item Value Reference Range Interpretation Comments Creatinine (test code = 2160-0) 0.81 mg/dL 0.67-1.17 [facility].Serum Jaunvqmtly4614-99-41 11:49:15 Test Item Value Reference Range Interpretation Comments Creatinine (test code = 2160-0) 0.81 mg/dL 0.67-1.17 [facility] 11:49:14 Test Item Value Reference Range Interpretation Comments BUN (test code = 3094-0) 15 mg/dL - [facility]2022-04-27 11:49:14 Test Item Value Reference Range Interpretation Comments BUN (test code = 3094-0) 15 mg/dL - [facility]2022-[facility]-27 11:49:14 Test Item Value Reference Range Interpretation Comments BUN (test code = 3094-0) 15 mg/dL 12-20 [facility] Hfevv9205-87-39 11:49:13 Test Item Value Reference Range Interpretation Comments Phosphorus (test code = 2777-1) 3.4 mg/dL 2.5-4.5 [facility] Tnpev8170-24-00 11:49:13 Test Item Value Reference Range Interpretation Comments Phosphorus (test code = 2777-1) 3.4 mg/dL 2.5-4.5 [facility] Zgbkq3373-52-97 11:49:13 Test Item Value Reference Range Interpretation Comments Phosphorus (test code = 2777-1) 3.4 mg/dL 2.5-4.5 [facility] Kgrcv3719-43-40 11:49:13 Test Item Value Reference Range Interpretation Comments Phosphorus (test code = 2777-1) 3.4 mg/dL 2.5-4.5 [facility] Psryb6763-88-08 11:49:13 Test Item Value Reference Range Interpretation Comments Phosphorus (test code = 2777-1) 3.4 mg/dL 2.5-4.5 [facility] Gywxb7052-90-07 11:49:13 Test Item Value Reference Range Interpretation Comments Phosphorus (test code = 2777-1) 3.4 mg/dL 2.5-4.5 [facility] Ywhes5217-46-09 11:49:13 Test Item Value Reference Range Interpretation Comments Phosphorus (test code = 2777-1) 3.4 mg/dL 2.5-4.5 [facility] Vkxvh6187-44-60 11:49:12 Test Item Value Reference Range Interpretation Comments Calcium Lvl (test code = 66674-8) 9.1 mg/dL 8.4-10.2 [facility] Tglkw9125-32-50 11:49:12 Test Item Value Reference Range Interpretation Comments Calcium Lvl (test code = 76025-9) 9.1 mg/dL 8.4-10.2 [facility] Ikjzj5411-04-56 11:49:12 Test Item Value Reference Range Interpretation Comments Calcium Lvl (test code = 58000-5) 9.1 mg/dL 8.4-10.2 [facility] Ymhte9178-42-35 11:49:11 Test Item Value Reference Range Interpretation Comments Albumin Lvl (test code 3.6 See_Comment [Aut omated message] The = 7418) system which ge nerated this result tra nsmitted reference range : 3.5 - 5.2 gm/dL. The refe rence range was not used to interpret this result as normal/abnormal . [facility] Qtxex0697-20-06 11:49:11 Test Item Value Reference Range Interpretation Comments Albumin Lvl (test code 3.6 See_Comment [Aut omated message] The = 3189) system which ge nerated this result tra nsmitted reference range : 3.5 - 5.2 gm/dL. The refe rence range was not used to interpret this result as normal/abnormal . [facility] Kbahf4723-32-30 11:49:11 Test Item Value Reference Range Interpretation Comments Albumin Lvl (test code 3.6 See_Comment [Aut omated message] The = 6266) system which ge nerated this result tra nsmitted reference range : 3.5 - 5.2 gm/dL. The refe rence range was not used to interpret this result as normal/abnormal . [facility]art[facility] Aminotransferase 2021-10-24 11:49:10 Test Item Value Reference Range Interpretation Comments AST (test code = 14 U/L See_Comment [Automated message] The 1920-01) system which ge nerated this result transmit lakhwinder reference range : <=40. The reference range was not used to interpr et this result as paras l/abnormal. [facility]art[facility] Aminotransferase 2021-10-24 11:49:10 Test Item Value Reference Range Interpretation Comments AST (test code = 14 U/L See_Comment [Automated message] The 1920-01) system which ge nerated this result transmit lakhwinder reference range : <=40. The reference range was not used to interpr et this result as paras l/abnormal. [facility] Aminotransferase 2021-10-24 11:49:10 Test Item Value Reference Range Interpretation Comments AST (test code = 14 U/L See_Comment [Automated message] The 1920-01) system which ge nerated this result transmit lakhwinder reference range : <=40. The reference range was not used to interpr et this result as paras l/abnormal. [facility] Ojuai1796-30-49 11:49:08 Test Item Value Reference Range Interpretation [...] diabetes Lab Interpretation (test Abnormal code = 73124-3) [facility] Zjsxv3861-30-64 11:49:08 Test Item Value Reference Range Interpretation [...] diabetes Lab Interpretation (test Abnormal code = 54692-4) [facility] Nolwb1079-84-50 11:49:08 Test Item Value Reference Range Interpretation [...] diabetes Lab Interpretation (test Abnormal code = 73943-5) [facility] Zxaexsjkyf8200-07-97 06:55:27 Test Item Value Reference Range Interpretation Comments IgG Total-Barnard (test 830 mg/dL 767-1590 code = 2465-3) IgG1-Barnard (test code = 418 mg/dL 337-347 5015-1) IgG2-Barnard (test code = 157 mg/dL 171-632 L 2467-9) IgG3-Barnard (test code = 56.8 mg/dL 18.4-106.0 2468-7) IgG4-Barnard (test code = 8.8 mg/dL 2.4-121.0 Test Performed 9-5) by:[facility] [address], [place], [place] [address]Fjl Director: Petar Johnson M.D. Ph. D.; CLIA# [id number] 2 Lab Interpretation Abnormal (test code = 42264-5) [facility] Oliuegljle9058-05-01 06:55:27 Test Item Value Reference Range Interpretation Comments IgG Total-Hart (test 830 mg/dL 767-1590 code = 2465-3) IgG1-Hart (test code = 418 mg/dL 992-418 6262-1) IgG2-Hart (test code = 157 mg/dL 171-632 L 2467-9) IgG3-Hart (test code = 56.8 mg/dL 18.4-106.0 2468-7) IgG4-Hart (test code = 8.8 mg/dL 2.4-121.0 Test Performed 9-5) by:[facility] [employer] [id number] [employer], [employer] [place], [place] [address]Gqm Director: Petar Johnson M.D. Ph. D.; CLIA# [id number] 2 Lab Interpretation Abnormal (test code = 49535-0) [facility] Afhvoqnken0726-55-19 06:55:27 Test Item Value Reference Range Interpretation Comments IgG Total-Hart (test 830 mg/dL 767-1590 code = 2465-3) IgG1-Hart (test code = 418 mg/dL 224-410 9853-1) IgG2-Hart (test code = 157 mg/dL 171-632 L 2467-9) IgG3-Hart (test code = 56.8 mg/dL 18.4-106.0 2468-7) IgG4-Hart (test code = 8.8 mg/dL 2.4-121.0 Test Performed 2468-5) by:[facility] [employer] [id number] [employer] [address] [employer], [employer] [place], [place] [address]Xjb Director: Petar Johnson M.D. Ph. D.; CLIA# [id number] 2 Lab Interpretation Abnormal (test code = 97505-2) [facility] Ftnzewmswe5638-90-33 06:55:27 Test Item Value Reference Range Interpretation Comments IgG Total-Hart (test 830 mg/dL 767-1590 code = 2465-3) IgG1-Hart (test code = 418 mg/dL 635-836 6594-1) IgG2-Hart (test code = 157 mg/dL 171-632 L 2467-9) IgG3-Hart (test code = 56.8 mg/dL 18.4-106.0 2468-7) IgG4-Hart (test code = 8.8 mg/dL 2.4-121.0 Test Performed 2468-10) by:[facility] [employer] [address] [employer], [place], [place] [address]Whm Director: Petar Johnson M.D. Ph. D.; CLIA# [id number] 2 Lab Interpretation Abnormal (test code = 46519-6) [facility] Iuuhmapkfl6893-95-09 06:55:27 Test Item Value Reference Range Interpretation Comments IgG Total-Hart (test 830 mg/dL 767-1590 code = 2465-3) IgG1-Hart (test code = 418 mg/dL 951-522 3641-1) IgG2-Hart (test code = 157 mg/dL 171-632 L 7-9) IgG3-Hart (test code = 56.8 mg/dL 18.4-106.0 8-7) IgG4-Hart (test code = 8.8 mg/dL 2.4-121.0 Test Performed 2468-10) by:[facility] [employer] [id number] [employer], [employer] [place], [place] [address]Gbi Director: Petar Jonhson M.D. Ph. D.; CLIA# [id number] 2 Lab Interpretation Abnormal (test code = 04276-0) [facility] Ezvhxndaqj3187-77-22 06:55:27 Test Item Value Reference Range Interpretation Comments IgG Total-Hart (test 830 mg/dL 767-1590 code = 2465-3) IgG1-Hart (test code = 418 mg/dL 001-935 8760-1) IgG2-Hart (test code = 157 mg/dL 171-632 L 2467-9) IgG3-Hart (test code = 56.8 mg/dL 18.4-106.0 2468-7) IgG4-Hart (test code = 8.8 mg/dL 2.4-121.0 Test Performed 2468-10) by:[facility] [employer] [id number] [employer], [place], [place] [address]Vdm Director: Petar Johnson M.D. Ph. D.; CLIA# [id number] 2 Lab Interpretation Abnormal (test code = 22653-1) [facility] Rdchiomvcs8677-23-36 06:55:27 Test Item Value Reference Range Interpretation Comments IgG Total-Barnard (test 830 mg/dL 767-1590 code = 2465-3) IgG1-Barnard (test code = 418 mg/dL 994-127 9904-1) IgG2-Barnard (test code = 157 mg/dL 171-632 L 2467-9) IgG3-Barnard (test code = 56.8 mg/dL 18.4-106.0 2468-7) IgG4-Barnard (test code = 8.8 mg/dL 2.4-121.0 Test Performed 2468-5) by:[facility] [employer] [address], [place], [place] [address]Qai Director: Petar Johnson M.D. Ph. D.; CLIA# [id number] 2 Lab Interpretation Abnormal (test code = 84678-5) [facility]2022-04-25 19:29:59 Test Item Value Reference Range Interpretation Comments IgG (test code = 6001) 751 mg/dL 610-1616 [facility]2022-04-25 19:29:59 Test Item Value Reference Range Interpretation Comments IgG (test code = 6001) 751 mg/dL 610-1616 [facility]2022-04-25 19:29:59 Test Item Value Reference Range Interpretation Comments IgG (test code = 6001) 751 mg/dL 610-1616 [facility]2022-04-25 19:29:59 Test Item Value Reference Range Interpretation Comments IgG (test code = 6001) 751 mg/dL 610-1616 [facility]2022-04-25 19:29:59 Test Item Value Reference Range Interpretation Comments IgG (test code = 6001) 751 mg/dL 610-1616 [facility]2022-04-25 19:29:59 Test Item Value Reference Range Interpretation Comments IgG (test code = 6001) 751 mg/dL 610-1616 [facility]2022-[facility]-25 19:29:59 Test Item Value Reference Range Interpretation Comments IgG (test code = 6001) 751 mg/dL 610-1616 [facility] 19:29[facility]58 Test Item Value Reference Range Interpretation Comments IgA (test code = 5992) 191 mg/dL 85-499 [facility] 19:29:58 Test Item Value Reference Range Interpretation Comments IgA (test code = 5992) 191 mg/dL 85-499 [facility] 19:29:58 Test Item Value Reference Range Interpretation Comments IgA (test code = 5992) 191 mg/dL 85-499 [facility] 19:29:58 Test Item Value Reference Range Interpretation Comments IgA (test code = 5992) 191 mg/dL 85-499 [facility] 19:29:58 Test Item Value Reference Range Interpretation Comments IgA (test code = 5992) 191 mg/dL 85-499 [facility] 19:29:58 Test Item Value Reference Range Interpretation Comments IgA (test code = 5992) 191 mg/dL 85-499 [facility] 19:29:58 Test Item Value Reference Range Interpretation Comments IgA (test code = 5992) 191 mg/dL 85-499 [facility] 2021-10-22 15:30:07 Test Item Value Reference Range Interpretation Comments Submitted Clinical History d6ybrTEbVXDcq7nsKVV (test code = 71276) mbGFuZzEwMzNcZnRuYm pcdWMxIHtccnRmMVxzc 5NzE9WoLnNnRQhkelSi XGRlZmxhbmcxMDMzXGZ 0bmJqXHVjMVxkZWZmMH isDz7ucIXsbEroFoCeX SEde8nwulHOhtbfuOm5 b9srJWRhCcN2iIBkFCe iI6sfmbBtkEXvPCSiLG a2xJ62CDCooB3cmRLlD SxibdNeGoA5WDvwDTEb VhV8XOAjsVTfPUFuJ3b yZWQwXGdyZWVuMFxibH UhKFA1oYcef9J2sPZvx GVldHtcZjBcZnMyMiBO o6XsAMs4eBshC6RqNQQ mLuV2jGVrSYBjIZoyXZ YsFJJuucG3hG31UNfmz mI2yOGde9Pwm96us770 fI0qlZAeBBW3FPMtGRY ffUIpZPGkPRF9LBHvkV FiL0ilXWEgII2rzqnfU MgxDFgqCOSyfEJ4IAHg fVVlN5FbIXZaEVdeBHC rlnb8OhNbIf0heNHitY jhXKcle9iyd4qgeSDwW sk7OJOvXpYxDknkXUhl r3Ror5qgJWBwlh2hGMT 7dQObcEopw4T4hGZuEE YdgMClslQcHYArRzV0V GafJG3hjx00VLBdTYV2 yo8alSRukItzbnSsaBC dJJqyO1RnPCDdk505BU OtM0HhKUOth7N6ljZgU sCvOOPhbDU5llZ6RMHe FOy4cKEbasT8seOecNE uL6dmsD0bFBXgPU8bek afq8dfDScgILgtJSGej ZJ8odE8FSZsvDSmH5Mx qA2mYXEiOJgmFANqrnw 6ZoVkKt9twQNbnOcqYQ xzYmtwYWdlXHBnbmNvb nRccGduZGVjXHBsYWlu XHBsYWluXGYwXGZzMjR yfVgcrDrdnD1nGlVyHq RmKBnzYZ5yQTMkI5imt ZOpRWMsFUCkZ4cuOwDg zQ5lbJsfNAwysbEbKNE 0NTqyw4svciobcERqwe I4qRHqCsPpOqT4MHywn GFpblxmMVxmczIyXGxh jovlSFBnOYszG9heQbR yYBFzkXioMOuta2BwHA YxXGZzMjJccGFyfX0= Diagnosis (test code = 34) m8srqSMrNSTpmNV6PlJ tDNClt2wle8ZdvBHaiC KjDKndbSQtqyDndn95a YX5hL13DU4gKEMtOhE4 IASbzkV7Msw7DRIfYUU skBPzJ473a4idh6xxvz PznHW4iUpuDLDcqmtkA xR1WUzbKRQrbsjxVJs8 YYmxDJUosVA1PTVxgHO xB5RpKEGvYR9exki7UL A9ZOdgVIYzNjB5OGLeb GLjSRGyxRodQIcxx292 PUU3WoYwOQFfzoUhfNl kmX9fNoNiHBPCJzKjVZ OpsPtoQ0SbWCIbrA1aw 2k1QDounmTyZPi7CRNz G0mvrvmilrJve2JllX5 vq2nnC4MhbQlfP92yj7 lwhYApwUM2vCFaZXSpf cVgTEXzABNknDkxF4t9 aXNccGFyfQ== Gross Description (test f0awsDXjLQKiqADPSKb code = 7742874280) wMVxhbnNpXHNwbHRwZ3 OoxbntPUukEQ5iTG3sk EzpvAVejQSkGW1WWBXl ZmYxXHBhcGVydzEyMjQ wQJBwtSWycZI3JEPsVS 1hcmdsMTgwMFxtYXJnc nJ9CRSvgSCaY0EuGTIl ZX5xxymiYLR5YOiwwY0 xgsSPTthkQu7mhHMtyA tcZjFcZmNoYXJzZXQwX YRcoEymWLZjSVn4oY0U MbkyG55ue7Z5Nof4QGL eNGGcA7KuWE6fVLHklS AvJ45SWrjgZHI8OGTEM fjdDPIjTE8Hu0fqRZXd tEIkSEK9ILpyqXXxXBK xUZKoCLu2UDXfVFopbF VjII6hfJqaZqryrUbyw 2VjdCBcXGlkIDUxMDAy IRilZSAkGM5QNbOlJAU 2HOZxAXKhRUi6JWi7AA 7NZtDeJNXyOFF1OYH7R XLkMPw4QWfeUA8RSOXw WaMrYVU7MEXoJGRmTKK oTKi8GWVmTIviVROkiI FsIFxcZnMgMTAgXFxmY vPuAZVePRcjbpT2VUXc YWluXGJcZnMyMCBBOlx nPFLxXGtjwPugwT7uCC WsI62ok7DMu0XyFS6NA Cg5tfCblxexqX9uAKKt gdGgZRdciQDpF5fzOag yTtEdFxAiXVVIn01pwZ AafPDtKZThi1KeRFe8l kGvH16sG7ApPFdwDSTi jpYgULNirRqkW3e4lWS 9BTMaECKbTITlH48yQV Zozq6dbx95swGixjNam XNytSSbJxKxt6N1ESQv n0F6LJMrMHQbkCSwtcg pKR21YPChMLRrMU6ptZ VkIHdpdGggcHJvYmFib QWprXkizsKwbTP0APOi QFwmQTKwhDnbDDx0UIN 5Ry8cnGYrDJCepnPOJD 2aOPozqa87MPQ6u0qpi WVsZHtcKlxmbGRpbnN0 IEhZUEVSTElOSyBuYW1 lPUxJTktCRUdJTnwyMT EhOqczjMBPUDK2FBfrj HmhaXk3a6stwHXci6o5 LLpzCTT5kVuGv2ffdNC wGTxyHlwxbJFswnT4CF jPJYFTMTcHHoGrDX4gJ ZwJKerBXkZ0DhBcXOE8 EKiWT0HGzZL3Xyh0GTm 8fXtcZmxkcnNsdCBcJz XHaS1ruVuivF3ieGZzQ 2hcZnMyMCANClxlcGlj XbHuyOWkUlJhppX8CZQ tdJAlAUC6IY4lGARofj svHNZfLPEmVOY9LYiwq G30yNUoPLVuLXWswUHf fVxwbGFpbiANClxzbC0 lOkOpy5wbeKn3CUURTb ilwYSlidbnszD3AMXvp 6hjlRqyx4YsqKXvKG2v nNvheA2wOqNzPrZUMl2 = Disclaimer (test code = q4uvzOTtAHEegQJvNpR 9844) iWEPzQGRtg8iqEDJqsD FuZzEwMzNcZnRuYmpcd LJcSIXsMhEuu7lal957 lPHbj5roZNCqXnO4tOI eSQZolSReU796PXVnPT krp6jvi2UvGVZnmQHea 9L2CORXipyywMf0mJjk C23jm2X2RkzxW3zmAAM aFOKuK3IlEU8oBQBjHp s8ZHO2VWO6HXTkELThY 1XdKH5eJVQxdNXrFNn2 y8mbzSkxXAVzVLR0b2n kNSntmlYbRB5ujv4ymE x0i4ugobVgYHKiLQRfq ZGVLCXkG3CwwCevCb0r jGr5dQwbDjwxUYA7Pmg 1UP2van62ttf2aCdvLF TrntraYrS4EVkaDOTfg rhzZNk0ZCojHLRgtHW1 IWExqOJvI1YsFFJiJV1 wmpz2EEO9YXyzOFFnEf T8JQYorWYfMWOnlQzeY Jwqa227BOG9YnHkIE6p F7Lex7X6aX4bfYZnFPB xxQGhTxTlBSJwns8mkA XyDSpdy5ElJMJ8voM8b RCjxNPcELPpRV27Tgrv b2WfQgzwVBO3VTChbfM fr4Yqp3zrTeXpsdUyG9 jzV5LoVZLoFSSiSESmV xKyqxUhp3Upt8KxqAXk yYg0s0nfFNSgGRHvxGr jm7gsAYE7WUEjI3Q0zD Rsu2orCNmeDWBhqRL8d dQ7IUBgsNHlC3ZkcL5e RTLrRI5qvoi1u8jhVOJ 1SIxiZPIbVeQ3aoL6QG BcaGVhZGVyeTcyMFxmb 138JAA2ChWqEDXgk2Oa R6MynKqdN18asGcgS41 vNITstIkddN8iyNrncV 5cZjBcZnMyNFxxbFxwb LBqdeieJFekwdA4GNvv neanHLIoCXvaC0bpChQ nGNWbwUijBKfqz0ElPB HjMHTvSlcqtzE3EZGUg 82bALNoi7DrZVInjI4z mYBsMXrbfbRwbDW9DWy hdmUgYmVlbiBkZXZlbG 7qLHCtTF2sQAIepeJzv g3xbwOpAKGhDILaN3Bt cmlzdGljcyBkZXRlcm1 nkbSxJXK7KGDVNI6SBC KbSYUgt54rKQKxqFqci L6yfWRcrcGfSTIga7Li pD3hdMGRQNAqE4smPQ6 nAGyor0YlfTZboUAsgJ U6PEZtq6XfLbPounBwp WSgwDOrR6ItvIghL0re VAUbSESriqUjoIFfh0J iRXWrqFX9xQLqYO6WRw DWi44xLGBwACPRpeSpG QYtiVbqkNV2ozS5qT0p LiBJZiBhcHBsaWNhYmx pVFPwr113zm7uvvX3NG KoCIAguvbbb1XuPXFnV IHeaG49NESqVEAsms0q biafiYUyhcAyA4Ugjek 3iT0aBTVnDNfqLOYgOV ZzMjJcbGFuZzEwMzNca GljaFxmMVxkYmNoXGYx DNvoS1pnVnIvOpRfAnr wYXJ9 [facility] 2021-10-22 15:30:07 Test Item Value Reference Range Interpretation Comments Submitted Clinical History h6hotXGsHKXxb7vcICG (test code = 55605) mbGFuZzEwMzNcZnRuYm pcdWMxIHtccnRmMVxzc 9ZhS7BhFsPiHJtcvkEz XGRlZmxhbmcxMDMzXGZ 0bmJqXHVjMVxkZWZmMH qoKe0xsHVunAxdFgZrD QBey8xibgOOmblkpVx6 t0jwZIOnWqQ0dDBrPAd fZ2wxtsWnqWLhLOFuET c8yQ68WIImsD5gzCAfJ GnkkmUrQoQ0ORclQXCd McY7FOQkmDVpQNYxR3k yZWQwXGdyZWVuMFxibH BpPRA2sKxyt7Y0qNJrc GVldHtcZjBcZnMyMiBO b0ZpLPu3uUfpE8NmVPX kOvU3sCRuCBGbERsqUF EwZOCiwdF8bE87KOzzo yC0sORdp6Osq17ah682 jJ2yrEDvCBM3IFPdTUS tyOCyPNZmNCS2RTHibF BuT2gnFWLcOG8neuyhK UarHImrKDNslVQ5WOWp gAMgT9ZoCCRaOFikIXF fwqt7UtUqQj6krTZahM biMZzkb8hag5bagBOsH vg6PHCjSqBfCoomJYdd y5Mjj4mpGWQbzi4xRIL 9vLGxiGqvh6L3iQTuLM DinIAlqhDiKPAlQnA3V CshLF5epq00QWLpQBR9 uh0mmAIjbEpkaaYahMX vLLqzO9BwXPXnd701FU GeC1SuVPKwu6J0mtSxX dKbWNBvpME8ytD4NSVo ZDi5iBMsboP6xePkpPZ uZ9iblF4zQFEpJW7lpi tzx7xgIWidLMmhRDUti RQ8njR7GGSssHDvD3Zj jC6vTOSyFIrfNQAwjew 3FfAoSn0kcGAqnAmsHW xzYmtwYWdlXHBnbmNvb nRccGduZGVjXHBsYWlu XHBsYWluXGYwXGZzMjR wgOhkeIzgoB7qLvHrTo ZcXCslBB4sRHFtS4tve YLhBZOfXSBwQ7llJwVj nR1deTmcDGejawMuCCG 4XVrld5woiuryvJLvni H5zPJyVuCsAhT5RXgbr GFpblxmMVxmczIyXGxh mmaaVGPnXKdlJ5eoLxH zDQNpvMaiZWxsf2GkBN YxXGZzMjJccGFyfX0= Diagnosis (test code = 34) r8umjVQoMRGrxZV1DpL rPDMxx3nyl9QlaFNxsD ObVCkxyHQclwQmsa74a QH2mF94JZ5bRIRdWtC1 ILLgkfY7Lnu3DVGyEQI zwWZtQ599o9waz6dgek PgiOX3rObgGMYdygpbD jN8ARnaZYXhaahvMCc2 CUtlPNRapWW7CVQiuML wP4VkGEPmSA8xgqz3IH R8COteOUSlBoW5PIRqr QHdYBRbpRfbBGymc021 TDF1YkPcWAKhlbAupFd xhD1wUeJfFRZKVqJeIW RdnAbfX0ZoUBGesO9ka 9t6IIzwgfXcYKg1VORx Y1bzgqxbfgAid4HeyS1 vn4zkW2VqaXmsG91mi6 swqCHsiFA4wFXyFCMxw uCtSJEwNNXnqIquO2b8 aXNccGFyfQ== Gross Description (test k2nneTXzHJMxoPRNCMy code = [id number]) wMVxhbnNpXHNwbHRwZ3 OczwkmSHozKC4fJK5qd ZytqQStyRMsTL5OWYGy ZmYxXHBhcGVydzEyMjQ nVDTebALphJI9RZWoIC 1hcmdsMTgwMFxtYXJnc fN2JUWegQRoX2RvLPBj AX3nclakGGU5BCzzcC6 bexIXLiymVp7zvMMxyW tcZjFcZmNoYXJzZXQwX JZayTupDCKoQHc8rP7E LyisM63uv8N4Sbd3VZU fUSRgE1ZyRW9lJXAieL CeJ56JFpzuRXJ7UNWNU coeORSyWN6Qd8tpCWTz fIKrIBK5DKeowHJeVSI mRGYxEEu6ZGKvNBxjoU KkIB9bkUdhGsmxqSxao 2VjdCBcXGlkIDUxMDAy NZgnYXJkGJ4IAcYwYKQ 9UFLgJYGvRJd5UWz4ML 6SLeLjJYKtYJA5QVP9O UNmHGh1UJrtOQ8FEGWy RoOzAYL8VZEgJEBwTRZ rLUp9ADQqWLzhOTDjhC FsIFxcZnMgMTAgXFxmY oVgODRxHLsicbA6VYPj YWluXGJcZnMyMCBBOlx tWBGxOBxzvOsyjN2jVY GgX59ko3PMb8YqRF6YY Oy5lbVyzhptpC7kNYXf knMzAUmjiHOuO5rcZxc uXzRwWaHvUTRQm85lvB YzdQPmXNDmg6RoZKk1o eIiX43zX3EkSSkiPAId bsCjTIErmUibL8h9dCU 8TXYrRNWjVBKuV09vIY Oadv9zum48lvMsfsWry FOamNSiJcIze5P2YKRq a1P9TGJfPIVjfHVkjuz zZY53VDZiHLHgBX8xfJ VkIHdpdGggcHJvYmFib FJkrHzhgcMgjMG2ZIEn YHpjELPtqFluJJh9BER 1Mg1muHDbYBLcsyYJFN 6iVDveiy26DMD7g6urv WVsZHtcKlxmbGRpbnN0 IEhZUEVSTElOSyBuYW1 lPUxJTktCRUdJTnwyMT TvMrbumYUBVPY4POard HdybPd3j2jruCQnb8b0 XTurGLY1yKeLa4hezDE eCSsaNcsueNYkuqB6JX mRHNHNNKdMIgAwTI1lS XlUFxmPXoZ6TzOzBAA1 IVpII9RVbNQ3Ikj7QFu 8fXtcZmxkcnNsdCBcJz OBsZ2gdHrdpT4qaFDbT 2hcZnMyMCANClxlcGlj VsNooMIfJfRbyoL1UKJ jvUQyYZY4RO1vOVLcsn ioALIlEZNeCSQ5FJgic E30lNNaKKUcBILisLId fVxwbGFpbiANClxzbC0 tUrMmh8unyMr6QPKVVm kfkKPdbwxjfcB5VFRoc 6espCdsr6LtbCRuFZ4h lXrcmI2vIoGhJnFSHt5 = Disclaimer (test code = d9rqrCZwHOTdeVXkGuD 9844) zUMDqQLZrd2qrNUDbuQ FuZzEwMzNcZnRuYmpcd IKvOFBjHiHmi0mqz814 hHCrj1wqMZTyBaR3zRK wIZBkjKVcQ536CKBbTO uid5are2SxXWIwyMQlz 2A0YODCdjeeeGl0lQen I80jx2S8OyecI9uwEFU kYFPeJ0DuMA4oTPXrPs z2MCR4EGG5GXOhLQGxQ 9CgXE8oFLAvuVLfKQt8 f4whnHscEGGoNCB9e2m iTAufkwDbUD8ksc6egH h7q4kduoMjJIAdRTMyt MCUCNOwX8TxeJyfYm3c iTf6gAazGkgsVRO1War 3IX8grz92lvx1wGwvXZ KhydvyFkN7LRdnCJCnz pqsALw0YWpkTUQpoKG7 RUQwgVNyU3JiXXYkCT6 gdnv2ASV2NCdtKMNhRi M6HXLhsXVlTKRidVwjS Pbjj689TZN2QpBgED5c N3Duw5Q1bX0dhIJfSSA ppQThMtGrKKAhqx6dlU BqVKopu0SnAVN0hxE3l ILksEJdBQOfEM99Stuk x0PwPzcwWVD2BEJuplX is8Ofo7qcWvIcxiWyC3 iiM5ZuQJNiETTxNOLfS kHfguOsv4Usu1HeoIEf dNg0n0shXLIxLNMolFm zh2kfIIZ6XXPsU7T3hW Kwa3ohDWjfAKAxtEI8q wV8EGFilJOyH0PxvA1k XUAoMI8ulxa9f5toDXL 2TNrzMWOcDuQ9rvL2SZ BcaGVhZGVyeTcyMFxmb 448FJD1AsYyZSInj5Xw Z8FauLdaR98tuPrnQ80 vZBZuqDvitA1ypLmnjU 5cZjBcZnMyNFxxbFxwb YHstedfHHuiduQ8CVfa bjylCNTzPBxrR9daNqG pMOYywFqhRKjtq3AiHF UeXVAqKhegcdI9NNYJo 02lGMBzu8TnXFXezB3z eNWcCSshhpZxkBS2CQi hdmUgYmVlbiBkZXZlbG 3uKAMuCD7jRGEipnBrq j7fquLrXNHjQXTzA0Yn cmlzdGljcyBkZXRlcm1 rksKcRUF1XYXHPZ5ACJ LwFXPwu14tSLDzgTluq Z2qwYNyrrEmNXSgj5Mz tR5jbAZOSEPlT4fvCX6 lLBipe7ClwJXafLBcqN T5KODns9NsPdQwcpQkh YIrnYFeA4AqnBmeV6ov YHPkQHQwnxJrhUWzp7C wCLGxdSF5cUHbPB4ZHb QAp41wQUBkDDKWfgRdK AVjkAompVZ0hfU1cO3z LiBJZiBhcHBsaWNhYmx pMOVbt179oo4lmjX5TF UcNKBhvjvqr6MyXTTrH MPltR58XFBdNOVlfu2v qveutZEdetSlU9Qmcjb 9zO9eZQQiIZjhZWShHH ZzMjJcbGFuZzEwMzNca GljaFxmMVxkYmNoXGYx JNoqU0mpCoAdYjEzVgn wYXJ9 [facility] 2021-10-22 15:30:07 Test Item Value Reference Range Interpretation Comments Submitted Clinical History p1bbfNUaNALag3ulSBF (test code = 71039) mbGFuZzEwMzNcZnRuYm pcdWMxIHtccnRmMVxzc 0GyJ0KjVoRqNKvqreOu XGRlZmxhbmcxMDMzXGZ 0bmJqXHVjMVxkZWZmMH uwNr6isODczHlvCqHeF CZow1yznpPWhhtnsOt6 b7oxIMIsIwJ0hWOsUHi yH8wdqxGceUFpGGMfBW h4bN88EGXblY1tuMQaV HgnrrDoDtK8PJddHHMh YiE2FAIhnBIyAKOtT1g yZWQwXGdyZWVuMFxibH GtOPJ5hMvdn6C7eHUwy GVldHtcZjBcZnMyMiBO e6AnGIg2ePpzQ4MxRSM gBcT6xJQnRNVvAZfuVG PvKGEginO6yU57BGpcb pM6yIMve3Tdu64xd195 nP1cuZCmNNO7ZDIiMHV lxITcWUJxLIW1KRGzdQ FvF1iiXGHrZB3pbqpkI ZseKWvoYGEwiMN3IUZh zOBvL5TfDNTnQZiyTPG kibe5VcCxOg8pzKXcbK rwZZavr8clt1cfyUFwB xb2XMZtEyYnMusfXZys k5Bbo6kxHVUezy1pMGS 2kILdfRyvt7W5wLFoDV QvbSCtijLvJEIuGxC5R CbuNF2igs99DBCeODP9 en3epOIhgThlowNhbPU wJCavN7HsZDHtt375JH GgF0DnJZXyr7A9cqPfN xXmQOQixMD5wwG3TMDz OWj6aYUcqeQ1atCjrYD gF0wtqB6oHRPuLR0fun uxr3xtHAhbMFfkRSWhl WZ9ddQ8HUGjbIIvO0Ca cT3cQSMrEXkySPHbysf 4IrPiRj0ksHOdpFqjWW xzYmtwYWdlXHBnbmNvb nRccGduZGVjXHBsYWlu XHBsYWluXGYwXGZzMjR zqBkzeUktfZ8gAiCfKq MkNUinTM4sTUQdU3uej EDaZOHyYYKoB7geOrUd uX7igRtkIWxzajNyLZC 2NWcis9oggffpzIOvrp R7lVRcXoPnXxO6WAitq GFpblxmMVxmczIyXGxh kqueRPVrHPcbJ4ibDbP rZQTbfVwsMLdzv7SlXL YxXGZzMjJccGFyfX0= Diagnosis (test code = 34) g5ussJOvJWLkmTO9GvA fPJDnt7bhb1UgeTFrqZ BuGHzcqHEpvqLryp78j CG1rI62DY3uESXaReC2 NUKapiV1Zuj5WFFqXLJ ysOToW126a1xtl1ykfg FtjPV7aBwlGGInurfsL pY5NQmfVTFgbfrqCUh0 VSldGBSckMG5KLJgsLX yT8WvWOHxCQ3sunc8ZI C7FXhjMYDfXhP7RPVlv YPzZPNkcTukAAmgl770 SYJ4VcPuPQGoxnVcnNo agX6wOhAbQRXZHfQkOC LjiMnbF3DbIPBnzM3hy 4l6VQkwdhKqVYq2KWUp X5banqsbfjPsm2LhdV2 nm2dzC8BjrXzdQ08kl5 ixrYVsfTM8fVPzULEbk zVlXNXnNVJipZuoV9x2 aXNccGFyfQ== Gross Description (test j5ezwXXxZXKxbRHXKTx code = [id number]) wMVxhbnNpXHNwbHRwZ3 PdshebENmiFP2wTY5ob YqcyUKrpRZeQC9XOABf ZmYxXHBhcGVydzEyMjQ dLAMrdKKglQO2OXUqFQ 1hcmdsMTgwMFxtYXJnc gO6UZOztLRoT6WaHZKn AS8emtrtBUZ9OEgmyP1 uzmQMNegwLb1nsEMchE tcZjFcZmNoYXJzZXQwX ZRkuYabILJtISx2rV8O EsdsS75vt7K4Jrq5IFG eBRAkG6CyAO3tPTRhrI AaG19DVseaSPM3LSHMY xjuMBQuDY3Ec0ekMXXu xGUqBJR1FOdwyPCzTYB jZBHhJQi3FISrBDjjdW KkSX7viQyfSmrczIvpy 2VjdCBcXGlkIDUxMDAy VWsvDWFdMM9OYlOmQPX 0UBRpIDSmESx4YJu5VU 6RFhXdKNOxBQV1ZJV6E TGkBSu1EOimNK9YHDSc XqSbDTC1NVNeYGRuEPH qUOa3JOAgUIefCYAeoV FsIFxcZnMgMTAgXFxmY pSiFAHjOHcsgaH1XPXr YWluXGJcZnMyMCBBOlx lCRAjKZpdaTxauI0dRK EgN93ff9ZZf0PfSW4JK Hj9pzGihetrmZ3jKEBj xnOuGVjfnUXnD7yrVgd kBxMqKxKmQMTJx09apJ IleUWoGTMnw1MiMCh9h wAuN92pG4UdNLiwKBRt gvNyXZSuwEyrJ4l3oUL 1TQJbFHJuKFCuB65aKZ Tdph5guk03trExfgSxt AOvuFCrMwQhv7J6SRNv z6Q9JEAbFVEinEHnwrf qZE48ZQNtSHVjXD2ukK VkIHdpdGggcHJvYmFib KOgnKztrpGiaUO7XKGr QFkaANIepNfoYDc0STD 9Tt4uaMLiNFJkxiRTUF 6rAFwdjg01KVE2z1lwt WVsZHtcKlxmbGRpbnN0 IEhZUEVSTElOSyBuYW1 lPUxJTktCRUdJTnwyMT QgFbocrMDMZDJ9CObov MnuwRj6o9ijoQOpo2u6 QYelSHD4zRsPy5zojQJ pGGgiMbobaEMuqgE7GB bGGKQVIFpQFxHdSX9kO OyLSfeUSnX2ZcGpWIT0 GWhPL0LQcIK8Bea8ZMq 8fXtcZmxkcnNsdCBcJz GWmU0hgSpbzE8xqWTsA 2hcZnMyMCANClxlcGlj VjOjdPWdZsMakaD9TJM kjPChIBJ6AI7rQIEakt utWIHmIQNpMWP7QOoyn T72fMIpFLPnKEKvsGBy fVxwbGFpbiANClxzbC0 sKtPok9jbhSd2JODLVt pgzCFbxfolapK8SIUyi 5edsAlec0ZikOGhVE4e tTjgfN4eHxSjXyVGUe2 = Disclaimer (test code = w3xwdCEfDFSunJTnRxN 9844) mKSRkVLZjq3zzDUOsyV FuZzEwMzNcZnRuYmpcd LKtJPRsNsRfm9bmx995 wCBdm6btKXWdZlH6qQE mVCLlaIDmM927PKTlCL fac1mpm2ApSGPlxIQvx 8D0EZKWjakpyHt9tEex W27tb4S6VqfnR0xmGWJ jCRRtU5KxWT4cLBRjKu u8MFB7AHM5IQImDRRkR 9FqJJ6dORJnwXUdALc3 o8hqpCdfYKWnSGD6s9t mZAswqyRcCU2hcd7ppY a8z6mhzhJkGRAlLTXib CGYZMFpM5YdbWqsYy0q qCa9pIbwAgotYZJ1Pgs 2ZN8kak51wxl3hGcnIQ ExlrlzEwU4TTzsKHSlw dsfUZf6UKhlGUEvtNN6 BARerYYzS9VrOOTuIL1 pqpl6RNC1VEqcMCCeVr P7TIKduZKwDHXwaBnwH Onci784OBO5ImTeAE1x R9Tor6L8qJ0xiZMtLGW vrALuYiGqMFBgvx2oxR ZqLQelj6LnQGT8udV0e YSmqZInJFFtSU96Zppf t0OlGwdpWQE6FIExlvJ ca9Cff3xnZtJryjKrI2 jkN3NrSTKoCACzEWFuY gGrroUly0Svy0PjxYBn sOm4w6ahQMCtHSTvxOr ek6yvSQO2FZNkH9H2rO Brc1yaDQxhSMOvwKO3l zW0YXAadHWwZ2TppH1e EOTrNV5zbcm8n8mpEHV 4WIxkZDDrRzS8pwV0LP BcaGVhZGVyeTcyMFxmb 551KUP3DdYuVCCnb4Li Y6GioGxhE79wdTnzZ41 sKZPasDbsyC6tcWwnpV 5cZjBcZnMyNFxxbFxwb CWzjcypIYneuqD7VMyr urjoNHXzBPwvO1cgQpO mCQDztAjrAXado5TeVW EwYLJrLylpfvW7UDQOw 86xKGHli1OzFKOvuQ0c yAOrHVhdqiTvlWO7FQc hdmUgYmVlbiBkZXZlbG 0pHNDkVK1hDJMxprYtd u8cisOhWSTbJCJwZ3Ql cmlzdGljcyBkZXRlcm1 ralWgABM8BRAFYR7CCS UiJJHez49pLPFhcVlwe N0yqGTwyoCeTKFrs2Fx yT7ufUBHEHAiN5ehBV7 zUZwak0JscXMblGMnsT K4BNRbz0KwUxVpeyWgl KLpvOEsK8CwjDwnA4uf ZXKxTWTgpmLcaSPvt6S bKGXiuQY3gNNsFO7LRm MMs78wDBWlODLTjpOiU JGoeMfeaVI1yyF7mL8u LiBJZiBhcHBsaWNhYmx vVMHix926hu1tkgY5RX LzBMThhmtto4CcADWhV GHetU44QYLsHQPzfc0k qmhgrPJmegPwF9Addii 5mJ9vARWgYIlyXIUpQM ZzMjJcbGFuZzEwMzNca GljaFxmMVxkYmNoXGYx NGtdF1mlPvOpOmWiZaz wYXJ9 [facility] 2021-10-22 15:30:07 Test Item Value Reference Range Interpretation Comments Submitted Clinical History n1yjyMMoHPUpk9yjTWY (test code = 80243) mbGFuZzEwMzNcZnRuYm pcdWMxIHtccnRmMVxzc 1TyW0ZsVpPxMOtbhkOd XGRlZmxhbmcxMDMzXGZ 0bmJqXHVjMVxkZWZmMH plTv0jaSRmpTnyNsXmS QJml3jzxiJImdztiKd7 s9zbVQAxVcQ6vRXuSMu rG0uxyjQihEOrQKSrEO n7zQ72JTKyrH6meMSaV PgkudLaKuY7SOlvNAKx JbO7SVMnzJHnXRGmE0g yZWQwXGdyZWVuMFxibH CjJVI5hVvra2U9mAYik GVldHtcZjBcZnMyMiBO r5VqIDp2qRkyX0UaHBG aVoP3zNVeBYJoQVddYX LyMNOvmuX0iW25BVkbh mP3jDCsn1Sls00bd264 fH1ggEWqEME1SFWoQTJ yoVDlBYKnWHK4CYDqhU EeC7sfKQFtVC6lycayF JoyNKviJWUkrGO8KJYc tJCwE9GhGYDlRNpoNCP vtrg3CuAkZw6sjXAvfV wxNKsrl4dgd1uknHLiV wv6AOMhZwJiQyfwKTlt c9Hsq8iaUDUpxs7aKYI 5gLHpnDutb3T1vWVaUZ LpfGTmavAvXYHrLuJ9K QylQN1wno58VAYdHSB5 da7cmHJyjWelozMxiPR uMQyxS2GaEMAru429ZU QaE8UrNETqx9T9bqNpW yGjYXChcLY1thN9OHSx XRh4mSMnhoF8vjAntPZ nW8pvqW6dTLSxTA2tcy lkp2sqFWxuXWrtGPEes GH5bgJ2PKPscKKsJ6Hc oZ6pGRJwQPakZXNzoiv 0JuXdPw2gsWFkcVboIN xzYmtwYWdlXHBnbmNvb nRccGduZGVjXHBsYWlu XHBsYWluXGYwXGZzMjR twXdkrSadtN9eQqRnIp QgCLsfIE9tKOJpR2fiw XPcABHgTIQiC3lyUpLr dU6ueVjkMWbsvpJhSVO 2WHgmv4liicxvbSXtku O1nWOuVnToWeC9ZYpxh GFpblxmMVxmczIyXGxh gozpJLVlDIyjQ7yySqQ wKIUwrEbvQWsvg0FnPE YxXGZzMjJccGFyfX0= Diagnosis (test code = 34) p7hgbCFqGDZbnZQ5QdF cDRSgg3rxb3BqnMRgaT GnGNlhdHVnusQmzr26r FO2dY30VT6kFYOtNdR3 NWLrngF5All4UFGhCMP ciJFtS468x0zls1jztc HxaPL9kNhnSLWtznczH zI2CKzxSPSxuyfhFTp4 JKmnXPVumHA8FZBbeKW vQ6KxDYHiXA3hcma1SC V4MHurKOLtEpJ5FADsx JKbTNZjoDyhBOzpj972 OPN5XvIwESJkbwOzqZl tyO5hNlUwDWMCDgRpDM EjyOzxP4LgRLMfcJ4ar 2x2XHzcpeLlEZn1MUOm L3yyybbjpjKmp2AybW5 kd8bmI2HxfPjkY16gq6 sntIAssRC4oUYzJQIpr qLxPGStXPClnTbrJ6k4 aXNccGFyfQ== Gross Description (test f7rwyZKzPQXbtGQKVCm code = [id number]) wMVxhbnNpXHNwbHRwZ3 RjasdoHPvyVU3dBE8us BxexQAdyOSeTE7LSCKv ZmYxXHBhcGVydzEyMjQ sXARchUXppHY3GOTsFG 1hcmdsMTgwMFxtYXJnc jT5ZJQchAPtX2UzUSGm PX2bkevkIWJ5ZPhkdW8 vcbIPVzhwBr7orRRczQ tcZjFcZmNoYXJzZXQwX XJcaFjhUXHvSOo6cV3C HfsfI92xm3C6Gfu4PRS wTICcW0DmGS9hJGWsyQ ImH94EAcwqQER4IMOEW jdiWACjQX7Jv6xeKEHi wVMeWTN8JGvboLUdIMP xADDfMFy5REQsTWfjdY KsCH9hqMsbWrqvmBmoj 2VjdCBcXGlkIDUxMDAy MQsaZZLyRG9RCwBuROG 5DWSxLGTnTLr0NZf9TV 7FEiSyYNAdLRO8NUA1R RPnTUs1AGbmUO1BLQIb GeVsCOY7XPVnJQSeLRH fFXv3FPAgWAgfQRWhrR FsIFxcZnMgMTAgXFxmY yKuAXYmUPwkytF9KDJj YWluXGJcZnMyMCBBOlx aWENtZSikuBhiyA8iUD NeP75nj6REa8IyGS9KU Ie0evZliytlsF3qJSTy ztRnIAojrTJrD9nmOoi hVsDoNmBlTNUEs95qcX OcwPLwVMEka2ZzYHc3u kOoT59tD3AsBWfuOXHv qgUjGGTtfIezW6o6qZS 4KJIlQXAbQAYhM63dFH Rnqu8auc35hbFsgfTcs UQoeZRyLmCrt8R7IZUt x3W6YHSyKAIurXUdicv kYX62EGDaTZHnMZ9vsI VkIHdpdGggcHJvYmFib LUonXplsoKyqYK6RWCv XGhqAPVqsYkqYRs5YNZ 5Sr8bvQHvBPLtjqAYDX 7hLNoqii84KVI4v8kmr WVsZHtcKlxmbGRpbnN0 IEhZUEVSTElOSyBuYW1 lPUxJTktCRUdJTnwyMT KjGasxsLWCPCM1RPyah PqfwIh9g3rdzAZam0d4 ALhiAQQ2nExTj7wdmXE aBLpwEeivrDSlqaA1MM hPLNNMZLpSSuPgWN5wU SfHTemXLrL7TzDdTGH5 YPqNG9EWnLQ8Jhc2FLx 8fXtcZmxkcnNsdCBcJz SLlH9zqCbfuP8jwRPiE 2hcZnMyMCANClxlcGlj ZxShuCFmJfQegoR1CLS geZPyEKZ1LR7pEEIfjw ifWPXxZVPzVFR3TRflp G70eNUcZNUsURMbySEo fVxwbGFpbiANClxzbC0 vRoGjt4gmaXm4RFFSJd ozrFVbdfruipA5TTCsm 0zmsYfzp0UksBMfAR4v hIsptS2gBxPpCkLDCf8 = Disclaimer (test code = o2wtmKHoFUIxtDSzExQ 9844) aZOHdMBCaz7zyEFHjjI FuZzEwMzNcZnRuYmpcd DWzBJMxSpPqu7ghu714 wDBdu2icTSVhGgU0aIW fPZXhbWHiI666NDLoZL wwi5dws6MeSHRcmHJrs 2X6AZYWzyxnyKy2kKwu L32nu6Q1ZwcaG4zsHIV tKTNlH2DyDA2tVSMyTa p5ARA2RYF4EAWvINSuN 8XsCB6qTZVhmIIeUEw8 d5jowVytXWUoOGZ8s7h jQAmoloRqBX5ony9qdA e3f9jkaaWrAPLdKWClt XJXFXKhF7RejDhbOj1l jLj2eTrmGdbgGTU4Xau 1RX1xls43mrs5yFpmGK OpdwmwWgA4BDfhMOClj xfuFUu8RYahDUHivWP3 DUQbxESeE3AyAJUsPT6 zszk8TFS1AHuiDQXvGp F9RBBosVHjXGBzlPjiF Wipd533RTQ3JqBfZR5s F2Yej6D7hC1ywUCxJOJ aqEVzUoLrVEQfff5xjR XvMLctm4LdLVD0trA6x ILhbIYqLRDqLL31Jfkx h8IaVnppUEX5ZWJvnrB vv8Rld8qdLvNbzfCsL2 tjF0QzMAJqPDQrHMDtQ mOborTjn7Kzu2EyxBOu oVd4r6ztAYUrWLOqyLr pz4gpKKY8DBTyA7I9hE Yga7juEIfsXPDipDU0o zW4TTWxxZZvB1VraE1h YSUuAT5yaud6c3gxWOR 1OCwsVIQcJvV7xhJ0LW BcaGVhZGVyeTcyMFxmb 315BYE2OjWyOMVhi3Ar G4UpbDwtV89cmHcsU67 kRLPskMexlT6zcYsazC 5cZjBcZnMyNFxxbFxwb ZGikswgONhxkpV4OHoo jbuzOWUaADstB4ooSfE sHHRonCbwEHbvw1NtKK PhNQBdUluvbkX2ABKLi 71eWSSau3GrYXPgiJ9l cCWcCGzthsDezJU6ICl hdmUgYmVlbiBkZXZlbG 3zEIJvTQ0lCBEyquMky e7ucrJvPQBjHMIyW6Td cmlzdGljcyBkZXRlcm1 fyfCaONX3IOFMFS4LVN CgNQXjj37sCLSgnFbzv N0rkIPcmsWgMKOja4Ca aD7tnAFQLXVsW3udJU8 yTEheb5UjbRNrjOTmgC F4BROax7LrIvCtbkClz BFpiDUtR7AfcJnwT3mh GEAiMHJgeoInpFGiy4P yNXUwuLW8oOLuOG7MWn QRx12gYQFhFBZAwpAuZ IJcvZrdjFP2zuI8eA4r LiBJZiBhcHBsaWNhYmx pFYFbi179hc5brcL2HI IfKYLjvflgi5UkZSReK UGvdA60XFAdIMZmsd6n pfnmbRXwrhHxO0Qjlbt 3aU8kINQmYYncWAPbRI ZzMjJcbGFuZzEwMzNca GljaFxmMVxkYmNoXGYx RQpdM8avFkFyFlQfKmo wYXJ9 [facility] 2021-10-22 15:30:07 Test Item Value Reference Range Interpretation Comments Submitted Clinical History l3yhfFInMIGeu3gyXWR (test code = 37470) mbGFuZzEwMzNcZnRuYm pcdWMxIHtccnRmMVxzc 9CkH8WnJjOzORkeouPw XGRlZmxhbmcxMDMzXGZ 0bmJqXHVjMVxkZWZmMH iaLd2liUXczBrsUsFqT TXzm2tbehNAqzesuNe9 w3uzJEIeYuJ5fMSkFUt cT8bhodQtrIFuUPXbDY i8qA73XYXhuV2rxBIuY IzsglZzJjS3FUxiFXOk CmE2BDKtxHFyDRDjO4g yZWQwXGdyZWVuMFxibH ZfEXB1mHjef0U1vRZko GVldHtcZjBcZnMyMiBO q5UzSAv7oCctG5NtEUI uIiT6jILgEXEaQHjeID MrLIKvpnP5dA98OZzfq dM7yXVkj0Jlt96cr242 uQ3ezYVqZRM1XVKmYZP ccOYjBIEmDQY7FTDzrL LcP5mnLUWqFT4cipfwL HsvBEnoREAvnAH2MSWg lBMwW0MeVYWwLXswYWK uuvm7QmImTz0iyFRscA wnEVkbd7klu8lrgMGrI cw8LIGoHpBgPnseVDds p4Olz7ffDLSvbj7dZVC 9dAJhuMswk8D8qICyHX ZdsSAakkItZSVxZgZ1B PdhCW1fbk28XFXjWSI4 ij2sjOJhiKeftgYnnDU hOJypD1MrGTNij936MT BiL3YcEZVhp5E2idYaY oYqZXGznME8nxN6KPRz MAr5qRFiuzQ5giWuuBL iH7rihY8lTYXlVJ0qgt fgg5qvBGwoOXdyCYMug VV3tcN1HMGnoHDsL7Af vF3dJCBaVIssRNCfcgi 0BrMpKm6jfKAafFbcYD xzYmtwYWdlXHBnbmNvb nRccGduZGVjXHBsYWlu XHBsYWluXGYwXGZzMjR omKunsFqnpY9iHkImAq NzCAoaFO2kAFQhC0yhh YBaSPNjKIEeR4tbLiVm hP0oiUmgRZeashYpNEI 3XLmmm3jcfafssZDicp V9cXAbTqKpQiZ2OLzrm GFpblxmMVxmczIyXGxh ikkaXZQcKFikJ5wvCnK iUKSnfFxkWEwhq8HoLL YxXGZzMjJccGFyfX0= Diagnosis (test code = 34) q7uzbWAuLMHhzNI3SmK eYCYnq6lba1RvhUCfsW UmHPzroGEyloCkkq27g RX4uN05MJ8nXGFtLmR8 EMMzxfL6Yxx0PEKfIQY pcRZsM161u4rec1geyx UdaKX3kVjwZYXnvdmyJ eW0MXwjFZVjrhwpYNx7 DKkpUQDjdZY9SMUgmEW mI7JsJRFrVD2qslh0TT D0ENawIRPuJeU9EQAow NIpYVApmOjsKNicc850 OGR5OnEoSGTbifKiiKn jsI6kGaSgPNXGHsSjRB GghFbrM9KuOTFrzT3nk 8r6BTcamwZaODr6DYFj B7rzwajkalWki6BlyE4 pn2igJ3EbgInkU67iw0 bmuDKztHO1kRKuIBZuv pTbBFKfMVFsnXfsJ3i7 aXNccGFyfQ== Gross Description (test f2crtOBfSJBlxHGZRWb code = [id number]) wMVxhbnNpXHNwbHRwZ3 CxdtyeXYqcTC0oLR9qr KomwTVtuCDjSZ6CFATm ZmYxXHBhcGVydzEyMjQ fANKjaQWcuMM4QPPoHX 1hcmdsMTgwMFxtYXJnc nZ8BNCanDMbG0SyOQQi BP6tvdzrAUV0JFdrpK5 xsrKLFkfgSm6bzNNqrH tcZjFcZmNoYXJzZXQwX XIhfZoiNLZtYBq7oF4P ClijN58af8Q9Hvc0AHO uTQBdV3AkYA4nQZEyzY VpD97FKdciHAU8OLVTZ dsqHLAnDT4Ez3vjMLRv rSZjBCU0IDquzMPgYGT pWNRyNNw8XOXxLRroeJ EiLJ0agEbeTszssJmsn 2VjdCBcXGlkIDUxMDAy KQfwOXOiZU6SWyLnXZV 6HXWjCETdFCi1SVa7PI 1TFsCbMCFmDOI1HSD9Y DTpBKo5KKuhPD3XYSQy VvOdNTL9BPApDGAdJQE uUAj8ICBfZVmjMOVemC FsIFxcZnMgMTAgXFxmY bJlCMQeXDysgjC9VEPi YWluXGJcZnMyMCBBOlx fNAFfLNkuqXwjtF4bNI OpP35zt8MFf3LeTA4TB Mg4ddBfzutkoE8cVTOw ksYwUHnexMCsM0vkPza kTcUsYxJhHEKHl82hlH EucEUcBGOyy4RoHNn1o kUnV86pD1IvKFerBLIr ipFgDMLvsExoI8j1qVA 1XQRaVWPgUOMuP71lWK Xvci0odh03zdNqtyZof SEyuDDsReEso4B1QWMy p5R4DADbSZAvlJPgqbx vGT97SEKbMTIjWV1rtA VkIHdpdGggcHJvYmFib AKidEfjooBzoSX2MPLa OUobEPXbjBknDHe4VRO 8My2itHYtMFGwqhIGUF 8cKChcnm08ZQW8v1iaq WVsZHtcKlxmbGRpbnN0 IEhZUEVSTElOSyBuYW1 lPUxJTktCRUdJTnwyMT CkXarloYFNOLT0AVjft OlkcYl3l8usjIOjr3n3 DTlgOUA8gHfTg4gjtGV vBWgkXaneqWUjvmQ2OU nNANVIECuSCtVmZH2jI XvGXozTGhV8EyGwKYL9 DZpYC8JSvLY7Pdk8NGa 8fXtcZmxkcnNsdCBcJz YVlZ4dpGtkaM1ouGReI 2hcZnMyMCANClxlcGlj QxLibBNbWxLmpbR1WHQ rmFAxXGL8RA4aSSFnvg fhDACqKHMjGZP7FBbrh W30eBVpTQGoLMDbtUAi fVxwbGFpbiANClxzbC0 wGxYei9wraVf6QHWAYt dgyUCqoelwstT1VLOyi 6rncOwbo3LfyRGnVY4n bNieoT0rYxJbYfBRBo0 = Disclaimer (test code = t2wmvMScSYFczDFqGnK 9844) bVWIkEUSvb2ngZWNneR FuZzEwMzNcZnRuYmpcd AUjMTNcWlViz6fyc722 hBDzt9cqBPInTqZ9gHN wRFTvaAAdV755JWVaIZ ylf9vlx4FsSEEtqYLpf 5S0YFCHepkppOx3pKcp W94ys9V0QmepS3pcJFW eBQObF3DpRZ0tUUFkRd y6OWG4TPV7YJEpWGEzQ 9WmEL9pSYBzbFKjRVw0 w7gxqAnbMVEkJLK7l9d aPEkqqnFaTG2mpx0vgN b8x6aqrrLkTRLwABWzy INNLDZxC3IzqUmePx4p qWn1dKneDcdrYVQ8Vwt 8OC4sgp41lbq5iOpxVA FnvdrsNaE2PVvhRLBbl bijFXi1XPwlNZPazLO5 YJRodAUzB1RqATUiUT5 gxel1LQB6QIkeGXAnUo J2MXCbnIRiQROmfVcoE Lved805ZPY3EwFuDF7r R4Bdb2K4nY7tmQAeVMT jhUGvPcZdBUGwtj6blL NmVLahx8XyHQD0taF7n ZJepBFvNXJrMT30Dpat p2AkRyflXGO7WLKseaD xw7Pwg0qtTuOjxnXtU7 efA2XjYFCvYEYsXHBeU xShdeIqk6Plu3WoeAEr bBz6j3nmHCYxUQZbfJd ds9deMAC8NTKcI6I5kI Iat4ptYXkeXIFwnNZ9k aL2AIDspSBtI7TxfV6d OEKiAT7cywe4u9zmFND 0YZqbKAXyNzF7ydZ3HZ BcaGVhZGVyeTcyMFxmb 695OAU2TtFtTOLvp7So B2SvsIviG51siHehO01 oAFZacUpalH5ulEdtjW 5cZjBcZnMyNFxxbFxwb XDvvkhhMCixlyJ4JPwa qgolBLMuOUfcU5qiZlB uZVRgoHpfGBfge3TtNY EoIEDsBpfoxaM4HRCUm 80pKUPme4JuGGLagL8c nKMwDJkqsdDngHP6WGm hdmUgYmVlbiBkZXZlbG 4tEUNfLU1oLEGxzgVny r4tlaKwXLRtPKIxN6Jp cmlzdGljcyBkZXRlcm1 ivqReVVS8TMKNXG4PVU ZoYGNki80hPOSbvPirn I1glSQaybOwTNFqy6Ch bO9pfHYUKKXnP5anZT9 nEMinb4MrxDBrmHNcuM U2EYAos8TcEjRqdjCzf BTykTAmX5XnoEfzY7mk KYXtUQFtzpUwbCJwk7Z mACEkfRY0kBMxAS3WMp THg81hQUEcQVCKhvJcB AAreJicjTE2igJ0uP6y LiBJZiBhcHBsaWNhYmx jHMZoq348pl9svaE7VJ BxOCAbjiqgl9RyDEUbL JPwpM60KRCvFMHaoh1e xtqeoNYeggFaR3Wjdku 2cY2qTGSxHGhzGIGbGU ZzMjJcbGFuZzEwMzNca GljaFxmMVxkYmNoXGYx BDauW8qyZxEfXgEmSev wYXJ9 [facility] 2021-10-22 15:30:07 Test Item Value Reference Range Interpretation Comments Submitted Clinical History a3rdpOFkPFAvk1fbRCX (test code = 11536) mbGFuZzEwMzNcZnRuYm pcdWMxIHtccnRmMVxzc 2CdO8YhRrEnXKdxuoYj XGRlZmxhbmcxMDMzXGZ 0bmJqXHVjMVxkZWZmMH giQu5acCHykKphEcGeQ NCgo4ohxmMXgkhdbVu0 r6wbAHObTmN9cMEqQBf vH1qnneYjsMKhAHGiBU f3jC61DXCjkG8dbQYtK IgbgiCyIzE9JMtnDYXo IuI7FQPicPBiDJNxP4s yZWQwXGdyZWVuMFxibH HoQLM5iZdmw3C6mKWck GVldHtcZjBcZnMyMiBO h4JvYVq4kCevF1NgQPN jZeZ2lGOfWZDbQPdxWM IwGWSmheU3gF91KNprw uX1hWSka6Nrb37sd653 jY5pkLOlZGH6DFHzWMC syZToTQLpEJI2AOAfzV OiM8qgSTXhCQ6xapniC VcjSFtvYZBqkKT5PCLo fSGvH1ArWWEmYDbkXTA qson0KnXrIn4grNCriS hbOZujx1iyb6rcnADpT co1DISqMcEeNflfHHbl o4Cyf8rlEQHksl2uUHV 5iIPedFwfp7E5cDKsYS PgjKFsooCgJGUuNfD0J OaoBA9yte13ITUbYUU7 nd6duNDdfCyukqKvyMQ zSSbqS2OzGZSdo718UX JfL6YlFQJyg6Q5tuAuW jXsVWYwcDY0jaA1FVNr ATa6tJKaflP4aeYpyOI gC1xkeS6zEAFfLX5nkm ohu4vpBIosRVuvYFVqo OH9gpB3VUSghBXfO3Mw aA7uMVTvPDocBQZieoe 6ImMqIo5lrPNmzUweRO xzYmtwYWdlXHBnbmNvb nRccGduZGVjXHBsYWlu XHBsYWluXGYwXGZzMjR iuOowlUrbmB3tVtXeMp MxVDnbRZ5mJSJbW9gii TOhJWKdCCDyV4ncSgVv jK9ftCevGEguwnMkNTP 4WIhcu7ipfawhlFUcge J0nSMwTjXaIsY8ULavx GFpblxmMVxmczIyXGxh kfrkFJKcGNovH9jbXiO jIQLygQmrTIksn5AyNO YxXGZzMjJccGFyfX0= Diagnosis (test code = 34) q6tlbOTaRFUtoDY8EyP fVJDba9tsu0GfcWMmgC AiKZwctOEapjFrcx12o UP4gG29YT1zRORrWrG3 DWZtesX7Jmx1FXJgCYW mbHGjC900j5okf0bqrc BgyUA4rSofKXXysnkeZ tA0YFckWMIctsziWFl3 GMtrBGHihDX6NIJttJA nF0FtRPAkAA3plvi0RZ J5VBbyDZCjNqS8QXIgy WIiCDHqcItkEHoor523 NIF1PbVdLCZgvjZwlQb pbP7vXbDkVXZFEiRjDU SmeUpsB8ClANOkcF2xo 4b8XUptsaAtVEr9UXJk K7wedchnnqNpt6PvxT3 bt3clL2IutGstQ30ak3 amgZQkvNT2pEMmKFWxe iVfIYUrBTTqjYqzQ9l1 aXNccGFyfQ== Gross Description (test d3wokUSiPWXtbICGHAp code = [id number]) wMVxhbnNpXHNwbHRwZ3 PsxoyoAVjwGZ5yVT5we FhvnPCdmVQwLY3AVNLj ZmYxXHBhcGVydzEyMjQ fZOLdcLLfuZV9NPEjXT 1hcmdsMTgwMFxtYXJnc hW7KYTipHJcT6DnSINd IH1mhfuzVGV9GFleoG8 nmgMKDjivCx3hkGLirU tcZjFcZmNoYXJzZXQwX SIwiFzjJSUoZLf2pQ4P NllxU50qa1R9Red5NEO tCHViA8LjZT1hFBGysQ AgX82VOxyyDEH3YGGLN zjlTFIxIB1Dg1gsQIQf tQFlOGQ7ORwcnFSpXUK xNQExOYh0WYZcPEisvZ MzDB6kyBipBxjftFohb 2VjdCBcXGlkIDUxMDAy SXruNEYjAH5RYfYaIXD 3JGZgWORzNZy5OKe9ME 7QOhOwVTDtGBV9SFO4U DXeQJb6MLduKH5HSGLi GpIrDUN7VPYoDXJsASX zOOj8ZWCzREgtYLEquF FsIFxcZnMgMTAgXFxmY pQfOQNgDFzbkjQ3LPMk YWluXGJcZnMyMCBBOlx gPLFvCTzptAtbmR3gPE KoJ93ta0KHw4TiHP3GJ Qw5cgIxxpqyvF5bKLSo btRiJPeilOHuJ4uiGug wFtFbQjUuKGKRb84vkP BprCToUZWnh7AjUGa0t mZuR82rI9RiCVnqBZXb tyEkQUUtbIpeJ9q9rUV 3VILpCNRwQECbJ84qRQ Clhu6wof11ojCnksBzd MGwyWSbDyFbo9Q9EUPh c9C4VSAjZFOwtSWavsl mMY06ELExMKNiCR0itS VkIHdpdGggcHJvYmFib PPltYsrcbPnjLG1YTUc UYiyCNXyiEebLIm8UNT 9Pp7ktFRmTEYymzUJKO 0iSCwbir85BRT6n4qvm WVsZHtcKlxmbGRpbnN0 IEhZUEVSTElOSyBuYW1 lPUxJTktCRUdJTnwyMT TgPerviDEIJOU8BLrcy CbqjLj3e5gkaDBeo5k2 BJymBDV6rPpWe5hpjVH qWWstUfqfkGYvzkD8VV eSGXUJIYjHCrZdEX7gI QePLruGIdQ1SkYqKAA7 CGbKV2DBiBH3Itm7EPj 8fXtcZmxkcnNsdCBcJz PBmD8qrKjcgN3atRLdN 2hcZnMyMCANClxlcGlj FgEsgMLsMlKobyD6IBH emBFnFID0RN0vXAMxeg ufYDZhCAMaHXY9CKthq Q11iZPsXMWuWQHtlBOa fVxwbGFpbiANClxzbC0 yHbVvt8fykQv3PMAJQn hgcIOastejypD2OPBon 2wsmObjm9VlvYPgCE3i gTiblA7qMaGoFgCRFz8 = Disclaimer (test code = v3mwpYQfJXVwbNIwHyP 9844) dHJHsHCYjm8brSMYnhD FuZzEwMzNcZnRuYmpcd IJcBVHpKcBmo0jsa428 rEPov2wuCPDhNgF5nRC lIIAlhHFuG072JMNeAD kwk0npx6OyPMHjpABnq 9F0YELUmkhfdWw2nVnu Z65vs5J8GqfmW7msNOT iQUAbB9DzHU2lQZStBw x5JLP1TCI6LPVqDHOkY 4WqOD2pTWDnzOMeMTj9 h1qafOzvQSNtZWF0h5f sVMnltrKoVT7ump7zsR g0v1cyvoJhRWKbXRMpx SLUKCMkV3BxiBfkWc6r tDt1aDugWmrsFSL9Knl 6FS5tvk69mkw6sResPA LjchniZwX3MKleXOBdv fsqWOm7XLknSCFutLK9 KGBhiHDqB6KtRBSfLW6 pbhw3AQE4MRohPWOiXn B5JMIgcXRsQCLnvVptW Zzrt914GTR5NyTiNJ3u P8Olk6O3rU2fkTEnRQN ccINmZrBvHMXjda8dqY UnNGdel1QxUFF3aiV5q ZTjdWJjAYKdHN25Gjuj n9IaYwjoYLE1BFCxvtR rm8Ptj5usWuAalwYuR5 pvE2SrSQKdAOSmYEWdK xDgvsHqo8Eqd4DddQIr aFd0w6kvJTZrJGXwbLi kn3quUIR4XKUhM8G7cF Kzc9nyPOxwCXIyqBF9x hT8GFYsqYLyT3GwrB0s CXSbSA1arwm9e9wlUHS 2ADkzKFTzCuL0qkJ8PV BcaGVhZGVyeTcyMFxmb 309PWK1CpDrXFXho5Df Q3AwdQmzS58wwGbiO86 lXQRxdAvgnR1obGzkeG 5cZjBcZnMyNFxxbFxwb MAlwwhjNBypnrW8QSzv dzxuOZZcVNweE3ueRuE mLKSdkFomLJnqh2SgYX VhLMXlZuhadsJ8YOHOt 07vYXSzi0GgJPItsR4m kDNxAGdfpvIhjUM6MZw hdmUgYmVlbiBkZXZlbG 0tONPcGY1mXRWccjFmq t1bmfXzWOWoDELkM1Vr cmlzdGljcyBkZXRlcm1 mmtNvHUW3YCMVOY0MGO LqBYPih90vBHRagJegb P4gxLAyxhHvAKJsz5Nu xY6gqHQNBNBhS9doIU6 dZFiyf6WrdZBuxQPmbC R1SFZsc4XfEsVxkoVxk MKtgUCbE2RivDqoD9ze UDDtWYTicoEbtWRdu6D hOVLvsLO1dGNgNG5ISx ZHm93cXPQcXCMRsdQhI ZDutEgzmSF7hnY7kA2i LiBJZiBhcHBsaWNhYmx mRYTzm287ge2dewO9IP KjONKjbzyyh2BrVVNlZ ADpkA92IHJfPBCctl2i jgqclRAyitVxF4Xygzn 3hC5xCNGrELmzXMPzSN ZzMjJcbGFuZzEwMzNca GljaFxmMVxkYmNoXGYx DWwrZ4bjCkCwYkHpZwu wYXJ9 [facility] Interpretation 2021-10-22 15:30:07 Test Item Value Reference Range Interpretation Comments Submitted Clinical History v3jtfNYlDGTfk8ecDMC (test code = 99387) mbGFuZzEwMzNcZnRuYm pcdWMxIHtccnRmMVxzc 4NyX8SaWvOkNKemddOu XGRlZmxhbmcxMDMzXGZ 0bmJqXHVjMVxkZWZmMH ujWj9mcFIjnNlyIfAmU GIty1caoiWNidgnlZx3 a3bdICRxEfX6jDVwEFs eC6uxzkAxmPBnDFFzKD r4tL34XGVmnO3yrJNiC JbxhpHzKvX3CEocJJYj BhP6WVLsrMByMZNcZ5n yZWQwXGdyZWVuMFxibH CwNJX8fRgau0W7wZSiv GVldHtcZjBcZnMyMiBO f9UfFCo1aRliH7GqLVL jYwA4fKSkPUNuOZqzQI NuXSSthxP1aG73NOuqi zR2bMMpv0Kyt36da748 tR7yhFAtDPT5WHFyNWP grOXgPQWjHTL7IQQnwU LgT2onTVXeHF9trkasR LaiTLbxETKzoZM1AKCw lNXiR5JhCZXdELscXGS jjwj0XbUlVh3xiTRgkJ bzVCnxv6gvk5ikrPFkF wg9TRUcHhWdNjpeTDlt l1Ssc9amFGJtxc1uIZA 8yJJedIzva5D3vWSdLH GhqXWopkSlZCYzLxO0Z NuaNH3qyq26ZJLmRTH1 ms4goCXilUcaqvIegCR hFDlgZ3TlQMYnp656BN GrK2WsSNXmf0B6tfVuO lGwOHRfgYW2zxH0GILp PDv9eWPvnaR8nlCjtNP mC0ipiJ1fRSToCX7vqx btg9mmHVzwKNayKUCnm IS3prO2BMWiePWkY1Ic tW9qZFBwCErdLGMrtlq 7ZjHbWt6kwQLanJueYC xzYmtwYWdlXHBnbmNvb nRccGduZGVjXHBsYWlu XHBsYWluXGYwXGZzMjR acLybpDgfdH5wKjCqRo YiZYueFC1jAHTuX5mfk FRtSFWyVDHcG1ulJpFp gN8jhYssVPmcmiEgXTC 5GIkto8nisauuqVRosl R6bGVxTeMhXdT4FMazq GFpblxmMVxmczIyXGxh dwfaZXZhYJioB3boSeK vWNRhlHbhZYolr9OvNS YxXGZzMjJccGFyfX0= Diagnosis (test code = 34) h3mcsOGuAJQrxVX5JmE vXZXtc5sbx4EgyBCteN JkNZxshCDpdsVnzf46d QE5tE32TR4oOKDlFbR0 DHXkvqL2Qab1UAPfRFG tmMSsN758u7ltq1ioyj MawPO8nMdvUIThvcppE pU9CCbvWEQkrbjdXBl1 CBkyDRXuuSL2OLSqgIE nS5QnJLHqQL5eawc6LD H6KMgsWYYsWtT0UCZkj ZGyMXZnkVswSYeju458 HQZ3WdKmXVFaucLfwCt cjJ4wYwVuQFBYOsDcRQ UebZvhT1KtWZHrdO9hl 1g7IQcnwwRqJSi8IQMj Y5tgkbsuazInp8BjzZ4 ms0ebC8FpxFdsS28pd8 qysJVcaBY7iPQnREGiq vFeNWCkYHUvsPglA5u4 aXNccGFyfQ== Gross Description (test q5ofqTQtWALyzIHLMGn code = [id number]) wMVxhbnNpXHNwbHRwZ3 KdxpiaPAgjHF9fER4wa HwqgCRkaYEhML0MCWZb ZmYxXHBhcGVydzEyMjQ rCMVzsTIsvXI4DXXvBZ 1hcmdsMTgwMFxtYXJnc xD6ZVPonAVwD9AqHDYt HF7hsfvbSNH8EXufwR3 uydPUVsxgCw0nvMCpdW tcZjFcZmNoYXJzZXQwX PMuiZzaHKHaPOh8kE7Q StrqY31at5V5Ypz2ECO tNTZzB5HyOF2sFTMptZ EfX47CJbrpCRD3CXNPS jnpNJZtNP4Bc8qdPGTc jMNdXEE8QJanpNCeDPY yXDPrEFg5OCCoRYshzO YjHG8xlQfdBjvgcKviw 2VjdCBcXGlkIDUxMDAy OStuYRMrPJ4CLmUuRLH 2PLWfWOUmGMw7OJm0AT 6GLpNiYPAzRVB8HKR4F ZWkQBp1KInoMT7NKYQr KvDcVCZ2SVAoEWGwRKI qMGa8IXLeAAfyPAUwaN FsIFxcZnMgMTAgXFxmY hFqDNPkZUqavdY7QSXz YWluXGJcZnMyMCBBOlx mPXGkGCjxaEpexZ7eVO VaM47jr1XDr9GnRX3IN Pp6qeDpujdgrX8rFYNa ajRySLshcPSaG1ztYks gZmWcEzNwVVXNt57llY WfoJYuVMUxo3IeOWo4s vUnW79pL4IoDLcrEXGb gdGcRGWlbNhkQ2p4jLW 3EWWkIFVnPFAqK46dAW Fxdr5uju36kpNgohFhp ZFusWReNmSay5D0PTQk i9R7MWTzFFTynJGlzlo cOE55WHHoREWzKK8ebJ VkIHdpdGggcHJvYmFib FKduLjsraEerLM4IWLr AMccUDHylMdvCKd2GDO 6Pa5xeLQxRWUhbdBQDU 8aHThhpi03YJY6p4xih WVsZHtcKlxmbGRpbnN0 IEhZUEVSTElOSyBuYW1 lPUxJTktCRUdJTnwyMT DnUyvgyLAXCMO6CBlop GrwuUr5u7igzADba8w6 CSiiAEP7tKoFo7strGK hEEtbFzlzbBQgplG6LT jCKNISLVpDXhUxQK5sP MwMRtnDPuR5JlZbBOK3 IRvJY4RItNZ6Yaf4WWj 8fXtcZmxkcnNsdCBcJz TWrL0wuCwwlO1xeUUdX 2hcZnMyMCANClxlcGlj WjWlcIUqNnFiutD2ZHI rkDAaUHA7LM7lCIYgct bcOZIxJZBfDEB3VFwwm E87bRIfIDSjPXOavGDu fVxwbGFpbiANClxzbC0 oDzOzv7ewmEe0IAQGAx vcdGDggflbtyM8QSFzq 3ojsUszs3KtyXZsUU9m sZgjkB7oRqLxRgPZPl2 = Disclaimer (test code = v4jedBEpCGCznZDvCpZ 9844) dCGBeUTDca0qqANQjiJ FuZzEwMzNcZnRuYmpcd DInBEXtBgKin5wea499 oLLpm3aiOYDtShW9hRR jCNEciFItC985YEWsFG vxz0etg9ZoOTOfeLPdg 2X2QXYWosmumWg3dShv A99zp7D3FzpaZ2laCIE sZXMrQ2ElOM1vONMeQa s1SZU4MOI8XTOmQRXrJ 7HkQW9aVOYsnQDbRCa8 r7oeeAuyUPGiRAJ9s8b dRNwhryXgKX7zwk9dkV w6l0mtzuXnFLAnUKZwy EGFCDDdH5GuwVukPz8r gVw8cWvwPobkFBE8Ctd 9MO5atj96wcp4xFhqJV JyxzssAiI6KNtoSBGor cqwTGv8CYywIXZmrTE7 TPMmhPFcD5RuKBLlGP8 jieu8VME3EAqoYABwKy Z9ONIfnDDiOKPilWniA Dinl455EBR0JlJlLV0n P2Qxt7I5kI6guTMnHNX bxAXuRnGsPZZipz2pdZ DrOInth4TxCVS5geB1i QJqaZGxSJDcRX49Ewon e9HgVbddBKU6CKVmadK px5Fvq8gzRpBqsxSrV3 dpW4FqUOOfCWWdOYQqM hDntrIvj5Gfh3YtzXUq tUc5p4xmAXFfDKXlbJc to4lcGHI1FGQvX9E6zW Idg7vhNEvuFGYwaAJ3k cE7WFZmxOTxZ1AahZ9h QNFaAD4nzho1a7fsXJY 9IOnvFITaIdJ1ztO0KK BcaGVhZGVyeTcyMFxmb 824KWL9TwCdVYUyf2Dh Q9RqrKhpY07epXvhL44 uIEDnxBfmfY9voVofwH 5cZjBcZnMyNFxxbFxwb WEswkqqIGtlebU2XMll nqivFXGgOFhmW2pzBcM gPYNylLgyCTmvl6ZoLY PiSJRjJwddfdS0UAWTi 96jQDXuy9UrVVFnsZ0c kAJyDYvbepQtqZH3PZt hdmUgYmVlbiBkZXZlbG 2cVREhMS2kFKGigpYou q8bnnMsKXKgRGTxS8Gb cmlzdGljcyBkZXRlcm1 otfVxXIZ2ITTVNQ4BLU FmRSVng48hIKIvhKsnf Z2gqLPctpJtWXSvl3Kq jB2nsEQSCTQdT5jfYA5 lXUmfh7IkwWNgqOGfdJ V0VUSmj4XdPgIjoqSma BVbyZBnS7UlnNctJ1ax THZcKUSxwgJxgFUtk5Y fTLAjrCK7wHHyDQ1TUo HMo13nAPXfMVVTpfKzW JSseOipdGV6jeW5rJ2e LiBJZiBhcHBsaWNhYmx rSXDzg419uz4uasD5AP BtPPFzpahyy4JzWLBrT GKnyN30XHWsONClbc9f oegagGAukrQkF2Cxqma 8uO9rXBSnGWkbAERwWN ZzMjJcbGFuZzEwMzNca GljaFxmMVxkYmNoXGYx BPdrI8kmFzSbAjUdGty wYXJ9 [facility]2022-04-21 18:04:34 Test Item Value Reference Interpretation [...] for thesemodifi cations were determined by [facility] [employer] [facility].If samp le result is greater than 50 0 pg/mL, physician may o rder atiter of the sample. Please contact [facility] if you wouldlike t o order a retest of this sample to obtain an actua l value.Samples a re held for 1 week after in itial testing date. Perf ormed At:[facility] [id number] [address] [place] [address]Xzycscwvbv Director: Andi Taylor Ph.D ., BCLD (ABB)CLIA#: [id number] e: [Automated message] The sy stem which generated this result transmitted ref erence range: <=80. Th e reference range was not u sed to interpret this result as normal/abnormal . Lab Interpretation Abnormal (test code = 06295-8) [facility]alsSterlingngyasir, Lccgl3231-03-32 18:04:34 Test Item Value Reference Interpretation Comments [...] for thesemodifi cations were determined by [facility] [employer] [facility].If samp le result is greater than 50 0 pg/mL, physician may o rder atiter of the sample. Please contact [facility] if you wouldlike t o order a retest of this sample to obtain an actua l value.Samples a re held for 1 week after in itial testing date. Perf ormed At:[facility] [id number] [address] [address]Gkqlkjucdd Director: Andi Taylor Ph.D ., BCLD (ABB)CLIA#: [id number] e: Lab Interpretation Abnormal (test code = 55873-1) [facility]alsDee, Vumyr3313-27-61 18:04:34 Test Item Value Reference Interpretation Comments [...] for thesemodifi cations were determined by [facility] [employer] [facility].If samp le result is greater than 50 0 pg/mL, physician may o rder atiter of the sample. Please contact [employer] [facility] if you wouldlike t o order a retest of this sample to obtain an actua l value.Samples a re held for 1 week after in itial testing date. Perf ormed At:[facility] xkrq99845 [address] [place] [address] [employer] [address]Vhbmbtbrai Director: Andi Taylor Ph.D ., BCLFallon (ABB)CLIA#: [id number] e: Lab Interpretation Abnormal (test code = 09350-6) [facility]alsZ[facility] Price2022-04-21 18:04:34 Test Item Value Reference Interpretation [...] for thesemodifi cations were determined by [facility] [employer] [facility].If samp le result is greater than 50 0 pg/mL, physician may o rder atiter of the sample. Please contact [employer] [facility] if you wouldlike t o order a retest of this sample to obtain an actua l value.Samples a re held for 1 week after in itial testing date. Perf ormed At:[facility] pnbu11108 [address] [place] [place] [address]Jhceuxulaf Director: Andi Taylor Ph.D ., BCLD (ABB)CLIA#: [id number] e: Lab Interpretation Abnormal (test code = 05065-6) [facility]alsFungitell, [id number] 18:04:34 Test Item Value Reference Interpretation Comments [...] for thesemodifi cations were determined by [facility] [employer] [facility].If samp le result is greater than 50 0 pg/mL, physician may o rder atiter of the sample. Please contact [employer] [facility] if you wouldlike t o order a retest of this sample to obtain an actua l value.Samples a re held for 1 week after in itial testing date. Perf ormed At:[facility] [id number] [address] [address]Cssdldsllm Director: Andi Taylor Ph.D ., BCLD (ABB)CLIA#: [id number] e: Lab Interpretation Abnormal (test code = 20842-4) [facility]alsFungitell, [id number] 18:04:34 Test Item Value Reference Interpretation Comments [...] for thesemodifi cations were determined by [facility] [employer] [facility].If samp le result is greater than 50 0 pg/mL, physician may o rder atiter of the sample. Please contact [facility] [facility] if you wouldlike t o order a retest of this sample to obtain an actua l value.Samples a re held for 1 week after in itial testing date. Perf ormed At:[facility] grta05497 [address] [place] [address] [employer] [address]Vijwbmydsg Director: Andi Taylor Ph.D ., BCLD (ABB)CLIA#: [id number] e: Lab Interpretation Abnormal (test code = 08165-2) [facility]als[facility] Price2022-04-21 18:04:34 Test Item Value Reference Interpretation [...] for thesemodifi cations were determined by [facility] [employer] [facility].If samp le result is greater than 50 0 pg/mL, physician may o rder atiter of the sample. Please contact [facility] [facility] if you wouldlike t o order a retest of this sample to obtain an actua l value.Samples a re held for 1 week after in itial testing date. Perf ormed At:[facility] [id number] [address] [address]Jiebrxckwp Director: Andi Taylor Ph.D ., BCLD (ABB)CLIA#: [id number] e: Lab Interpretation Abnormal (test code = 26460-4) [facility] Review 2021-10-18 14:39:17RMP PRReviewed and Electronically signed by Pathologist:Mary Beth Parikh MD, PhD #[id number] [facility] [id number] 14:39:17RMP PRReviewed and Electronically signed by Pathologist:Mary Beth Parikh MD, PhD #[id number] [facility] Path Mmuded2936-26-59 14:39:17RMP PRReviewed and Electronically signed by Pathologist:Mary Beth Parikh MD, PhD #[id number] [facility] Path Emiwmf2604-28-31 14:39:17RMP PRReviewed and Electronically signed by Pathologist:Mary Beth Parikh MD, PhD #[id number] [facility] Path Review 2021-10-18 14:39:17RMP PRReviewed and Electronically signed by Pathologist:Mary Beth Parikh MD, PhD #[id number] [facility] Path [id number] 14:39:17RMP PRReviewed and Electronically signed by Pathologist:Mary Beth Parikh MD, PhD #[id number] [facility] CENTERUnPerm[facility] Medical CenterRespiratory PCR Panel Path [id number] 14:39:17RMP PRReviewed and Electronically signed by Pathologist:Mary Beth Parikh MD, PhD #[id number] [facility]ENTERUnPerm[facility] Medical CenterRespiratory PCR Panel, CONSULTING SOLUTION DIRECTOR [id number] 14:29:47 Test Item Value Reference Range Interpretation [...] 6203) Lab Interpretation (test code = Abnormal 07149-8) [facility] CONSULT[facility] SOLUTION DIRECTOR Swab 2021-10-18 14:29:47 Test Item Value Reference [...] 6203) Lab Interpretation (test code = Abnormal 02610-1) [facility], CONSULTING SOLUTION DIRECTOR Swab 2021-10-18 14:29:47 Test Item Value Reference [...] 6203) Lab Interpretation (test code = Abnormal 74665-9) [facility], CONSULTING SOLUTION DIRECTOR Swab 2021-10-18 14:29:47 Test Item Value Reference [...] 6203) Lab Interpretation (test code = Abnormal 83336-6) [facility], CONSULTING SOLUTION DIRECTOR Swab 2021-10-18 14:29:47 Test Item Value Reference [...] 6203) Lab Interpretation (test code = Abnormal 14930-2) [facility], CONSULTING SOLUTION DIRECTOR Swab 2021-10-18 14:29:47 Test Item Value Reference [...] 6203) Lab Interpretation (test code = Abnormal 19462-5) [facility], CONSULTING SOLUTION DIRECTOR Swab 2021-10-18 14:29:47 Test Item Value Reference [...] 6203) Lab Interpretation (test code = Abnormal 70290-2) [facility] Glucose [id number] 11:58:24 Test Item Value Reference Interpretation Comments Range POC Glucose (test 196 mg/dL 70-99 H RN Notifie dCapillary code = 49559-7) blood sample s, e.g. obtained by fingerstick, [...] = 9554) Performing Lab (test [facility] code = 17672) [facility] MD Marianela gustafson Clinical Lab, [address] [place] [address] 30; [employer] Consultant: Aletha Arciniega MD Lab Interpretation Abnormal (test code = 31162-2) [facility] Glucose [id number] 11:58:24 Test Item Value Reference Interpretation Comments Range POC Glucose (test 196 mg/dL 70-99 H RN Notifie dCapillary code = 90013-1) blood sample s, e.g. obtained by fingerstick, [...] = 9554) Performing Lab (test [facility] code = 93415) [facility] MD Marianela gustafson Clinical Lab, [address] [place] [address] 30; [employer] Consultant: Aletha Arciniega MD Lab Interpretation Abnormal (test code = 50935-5) [facility] Glucose [id number] 11:58:24 Test Item Value Reference Interpretation Comments Range POC Glucose (test 196 mg/dL 70-99 H RN Notifie dCapillary code = 98917-4) blood sample s, e.g. obtained by fingerstick, [...] = 9554) Performing Lab (test [facility] code = 14761) [facility] MD Marianela gustafson Clinical Lab, [address] [place] [address] 30; [employer] Consultant: Aletha Arciniega MD Lab Interpretation Abnormal (test code = 51816-8) [facility] Glucose [id number] 11:58:24 Test Item Value Reference Interpretation Comments Range POC Glucose (test 196 mg/dL 70-99 H RN Notifie dCapillary code = 99200-0) blood sample s, e.g. obtained by fingerstick, [...] = 9554) Performing Lab (test [facility] code = 98848) [facility] MD Marianela gustafson Clinical Lab, [address] [place] [address] 30; [employer] Consultant: Aletha Arciniega MD Lab Interpretation Abnormal (test code = 42542-5) [facility] Glucose [id number] 11:58:24 Test Item Value Reference Interpretation Comments Range POC Glucose (test 196 mg/dL 70-99 H RN Notifie dCapillary code = 17372-8) blood sample s, e.g. obtained by fingerstick, [...] = 9554) Performing Lab (test [facility] code = 90449) [facility] Marianela gustafson Clinical Lab, [address] [place] [address] 30; [employer] Consultant: Aletha Arciniega MD Lab Interpretation Abnormal (test code = 93814-9) [facility] Glucose [id number] 11:58:24 Test Item Value Reference Interpretation Comments Range POC Glucose (test 196 mg/dL 70-99 H RN Notifie dCapillary code = 88679-5) blood sample s, e.g. obtained by fingerstick, [...] = 9554) Performing Lab (test [facility] code = 48131) [facility] MD Marianela gustafson Clinical Lab, [address] [place] [address] 30; [employer] Consultant: Aletha Arciniega MD Lab Interpretation Abnormal (test code = 97046-6) [facility] Glucose [id number] 11:58:24 Test Item Value Reference Interpretation Comments Range POC Glucose (test 196 mg/dL 70-99 H RN Notifie dCapillary code = 47096-3) blood sample s, e.g. obtained by fingerstick, [...] 9554) Performing Lab (test [facility] code = 02165) [facility] MD Marianela gustafson Clinical Lab, [address] [facility], [place], [place] [address]; [employer] Consultant: Aletha Arciniega MD Lab Interpretation Abnormal (test code = 29597-8) [facility] Screening Dxvmcko9087-72-09 18:35:38 Test Item Value Reference Range Interpretation Comments Final Report (test No Methicillin resistant code = 8488) Staphylococcus aureus isolated. Path Review (test The results have been code = 8492) reviewed and electronically signed by Pathologist:Mary Beth Parikh MD, PhD #[id number] [facility] Screening [id number] 18:35:38 Test Item Value Reference Range Interpretation Comments Final Report (test No Methicillin resistant code = 8488) Staphylococcus aureus isolated. Path Review (test The results have been code = 8492) reviewed and electronically signed by Pathologist:Mary Beth Parikh MD, PhD #[id number] [facility] Screening [id number] 18:35:38 Test Item Value Reference Range Interpretation Comments Final Report (test No Methicillin resistant code = 8488) Staphylococcus aureus isolated. Path Review (test The results have been code = 8492) reviewed and electronically signed by Pathologist:Mary Beth Parikh MD, PhD #[id number] [facility] Screening [id number] 18:35:38 Test Item Value Reference Range Interpretation Comments Final Report (test No Methicillin resistant code = 8488) Staphylococcus aureus isolated. Path Review (test The results have been code = 8492) reviewed and electronically signed by Pathologist:Mary Beth Parikh MD, PhD #[id number] [facility] Screening [id number] 18:35:38 Test Item Value Reference Range Interpretation Comments Final Report (test No Methicillin resistant code = 8488) Staphylococcus aureus isolated. Path Review (test The results have been code = 8492) reviewed and electronically signed by Pathologist:Mary Beth Parikh MD, PhD #[id number] [facility] [id number] 18:35:38 Test Item Value Reference Range Interpretation Comments Final Report (test No Methicillin resistant code = 8488) Staphylococcus aureus isolated. Path Review (test The results have been code = 8492) reviewed and electronically signed by Pathologist:Mary Beth Parikh MD, PhD #[id number] [facility] Scre[facility] [id number] 18:35:38 Test Item Value Reference Range Interpretation Comments Final Report (test No Methicillin resistant code = 8488) Staphylococcus aureus isolated. Path Review (test The results have been code = 8492) reviewed and electronically signed by Pathologist:Mary Beth Parikh MD, PhD #[id number] [facility] Vancomycin trough on 10/17/21@10:30AM. Nurse please [...] is code = not availablefo r this 35823-4) sample. The donna e reported is the samplecollectio n date. Vanco Tr Dose 10/17/2021 Level, date, a nd time Date (test of previous dos e is code = not availablefo r this 45809-1) sample. The donna e reported is the samplecollectio n date. PAIGE (test Vancomycin trough on code = PAIGE) 10/17/21@10:30AM. Nurse please coordinate with lab to draw trough approximately 11 - 11.5hours after 10/16/21 evening vanco dose. Hold vancomycin doses if trough is greater than 20 and notify MD. Thanks! [facility] Vancomycin trough on 10/17/21@10:30AM. Nurse please [...] is code = not availablefo r this 71270-5) sample. The donna e reported is the samplecollectio n date. Vanco Tr Dose 10/17/2021 Level, date, a nd time Date (test of previous dos e is code = not availablefo r this 93955-3) sample. The donna e reported is the samplecollectio n date. PAIGE (test Vancomycin trough on code = PAIGE) 10/17/21@10:30AM. Nurse please coordinate with lab to draw trough approximately 11 - 11.5hours after 10/16/21 evening vanco dose. Hold vancomycin doses if trough is greater than 20 and notify MD. Thanks! [facility] Vancomycin trough on 10/17/21@10:30AM. Nurse please [...] is code = not availablefo r this 96076-1) sample. The donna e reported is the samplecollectio n date. Vanco Tr Dose 10/17/2021 Level, date, a nd time Date (test of previous dos e is code = not availablefo r this 20108-0) sample. The donna e reported is the samplecollectio n date. PAIGE (test Vancomycin trough on code = PAIGE) 10/17/21@10:30AM. Nurse please coordinate with lab to draw trough approximately 11 - 11.5hours after 10/16/21 evening vanco dose. Hold vancomycin doses if trough is greater than 20 and notify MD. Thanks! [facility] Vancomycin trough on 10/17/21@10:30AM. Nurse please coordinate with lab to draw trough approximately 11 - 11.5hours after 10/16/21 evening vanco dose. Hold vancomycin doses if trough isgreater than 20 and notify MD. Thanks!2021-10-17 18:05:08 Test Item Value Reference Range Interpretation Comments Vanco Trough 6.0 See_Comment Toxic Trough Le lawrence: (test code = >20 mcg/mL [Aut omated 4098-3) message] The sy stem which generated this result transmit lakhwinder reference range : 5.0 - 20.0 mcg/mL. Th e reference range was not used to int erpret this result as normal/abnormal . Vanco Tr Dose See note Level, date, a nd time Time (test of previous dos e is code = not availablefo r this 02204-8) sample. The donna e reported is the samplecollectio n date. Vanco Tr Dose 10/17/2021 Level, date, a nd time Date (test of previous dos e is code = not availablefo r this 70329-2) sample. The donna e reported is the samplecollectio n date. PAIGE (test Vancomycin trough on code = PAIGE) 10/17/21@10:30AM. Nurse please coordinate with lab to draw trough approximately 11 - 11.5hours after 10/16/21 evening vanco dose. Hold vancomycin doses if trough is greater than 20 and notify MD. Thanks! [facility] Vancomycin trough on 10/17/21@10:30AM. Nurse please [...] is code = not availablefo r this 90741-9) sample. The donna e reported is the samplecollectio n date. Vanco Tr Dose 10/17/2021 Level, date, a nd time Date (test of previous dos e is code = not availablefo r this 77491-2) sample. The donna e reported is the samplecollectio n date. PAIGE (test Vancomycin trough on code = PAIGE) 10/17/21@10:30AM. Nurse please coordinate with lab to draw trough approximately 11 - 11.5hours after 10/16/21 evening vanco dose. Hold vancomycin doses if trough is greater than 20 and notify . Thanks! [facility] Vancomycin trough on 10/17/21@10:30AM. Nurse please [...] is code = not availablefo r this 31830-5) sample. The donna e reported is the samplecollectio n date. Vanco Tr Dose 10/17/2021 Level, date, a nd time Date (test of previous dos e is code = not availablefo r this 74089-2) sample. The donna e reported is the samplecollectio n date. PAIGE (test Vancomycin trough on code = PAIGE) 10/17/21@10:30AM. Nurse please coordinate with lab to draw trough approximately 11 - 11.5hours after 10/16/21 evening vanco dose. Hold vancomycin doses if trough is greater than 20 and notify MD. Thanks! [facility] Vancomycin trough on 10/17/21@10:30AM. Nurse please [...] is code = not availablefo r this 67931-4) sample. The donna e reported is the samplecollectio n date. Vanco Tr Dose 10/17/2021 Level, date, a nd time Date (test of previous dos e is code = not availablefo r this 21310-8) sample. The donna e reported is the samplecollectio n date. PAIGE (test Vancomycin trough on code = PAIGE) 10/17/21@10:30AM. Nurse please coordinate with lab to draw trough approximately 11 - 11.5hours after 10/16/21 evening vanco dose. Hold vancomycin doses if trough is greater than 20 and notify MD. Thanks! [facility]enton[facility]ion[facility] Urine Antigen Path [id number] 15:56:29Legionella Urine Antigen Path ReviewReviewed and Electronically signed by Pathologist:Mary Beth Charles, PhD #[id number] [facility]ENTERUnPerm[facility] Medical CenterLegionella Urine Antigen Path Yzmqok2955-23-00 15:56:29Leg[facility]ella Urine Antigen Path ReviewReviewed and Electronically signed by Pathologist:Mary Beth Charles, PhD #[id number] [facility]ENTERUn[facility] Legionella Urine Antigen Path Ghhsin1056-08-31 15:56:29Legionella Urine Antigen Path ReviewReviewed and Electronically signed by Pathologist:Mary Beth Charles, PhD #[id number] [facility]ENTERUnPerm[facility] Medical CenterLegionella Urine Antigen Path [id number] 15:56:29[facility] Urine Antigen Path ReviewReviewed and Electronically signed by Pathologist:Mary Beth Charles, PhD #[id number] [facility]ENTERUnPerm[facility] Medical CenterLegionella Urine Antigen Path [id number] 15:56:29Legionella Urine Antigen Path ReviewReviewed and Electronically signed by Pathologist:Mary Beth Charles, PhD #[id number] [facility]ENTERUnPerm[facility] Medical CenterLegionella Urine Antigen Path Wyfapi6702-86-03 15:56:29[facility] Urine Antigen Path ReviewReviewed and Electronically signed by Pathologist:Mary Beth Charles, PhD #[id number] [facility] BeevilleLegion[facility] Urine Antigen Path [id number] 15:56:29[facility] Urine Antigen Path ReviewReviewed and Electronically signed by Pathologist:Mary Beth Charles, PhD #[id number] [facility]ENTERUnPerm[facility] Medical CenterProcalcitonin 2021-10-17 11:00:32Procalcitonin<0.04<=0.08 ng/mLUT PAGE HOSPITALUnPerm[facility] Medical CenterProcalcitonin2022-04-20 11:00:32Procalcitonin<0.04<=0.08 ng/mLUT [facility] CenterProcalcitonin2022-04-20 11:00:32 Procalcitonin<0.04<=0.08 ng/mLUT [facility]OSPITALUnPerm[facility] Medical CenterProcalcitonin2022-04-20 11:00:32 Procalcitonin<0.04<=0.08 ng/mLUT [facility] CenterProcalcitonin2022-04-20 11:00:32 Test Item Value Reference Range Interpretation Comments Procalcitonin (test code <0.04 See_Comment Pro calcitonin > 2.00 = 05784-1) ng/mL: Procalci tonin levels above 2. 00 ng/mL are highly sugg estive of a high risk for systematic bact erial infection/ margaret re sepsis and/or septic s hock. Procalcitonin [...] d ilution as it exceeds t he transformer coil winder's recommended ching it. Caution should be exercised when interpreting nunez ch values and done in con junction with clinical c ontext. [Automated mess age] The system which ge nerated this result tra nsmitted reference range : <=0.08 ng/mL. The refe rence range was not u sed to interpret this result as normal/abnormal . [facility]Procalcitonin2022-04-20 11:00:32 Test Item Value Reference Range Interpretation Comments Procalcitonin (test code <0.04 See_Comment Pro calcitonin > 2.00 = 01024-4) ng/mL: Procalci tonin levels above 2. 00 ng/mL are highly sugg estive of a high risk for systematic bact erial infection/ margaret re sepsis and/or septic s hock. Procalcitonin [...] d ilution as it exceeds t he transformer coil winder's recommended ching it. Caution should be exercised when interpreting nunez ch values and done in con junction with clinical c ontext. [Automated mess age] The system which ge nerated this result tra nsmitted reference range : <=0.08 ng/mL. The refe rence range was not u sed to interpret this result as normal/abnormal . [facility]entonProcalcitonin2022-04-20 11:00:32 Test Item Value Reference Range Interpretation Comments Procalcitonin (test code <0.04 See_Comment Pro calcitonin > 2.00 = 18757-6) ng/mL: Procalci tonin levels above 2. 00 ng/mL are highly sugg estive of a high risk for systematic bact erial infection/ margaret re sepsis and/or septic s hock. Procalcitonin [...] d ilution as it exceeds t he transformer coil winder's recommended ching it. Caution should be exercised when interpreting nunez ch values and done in con junction with clinical c ontext. [Automated mess age] The system which ge nerated this result tra nsmitted reference range : <=0.08 ng/mL. The refe rence range was not u sed to interpret this result as normal/abnormal . [facility]Legion[facility] Urine [id number] 19:49:58 Test Item Value Reference Range Interpretation Comments Legionella Urine Antigen Negative Interpretation (test code = 1671482) [facility]enton[facility] Urine [id number] 19:49:58 Test Item Value Reference Range Interpretation Comments Legionella Urine Antigen Negative Interpretation (test code = 6692401) [facility]enton[facility] Urine Ggypqns5654-13-90 19:49:58 Test Item Value Reference Range Interpretation Comments Legionella Urine Antigen Negative Interpretation (test code = 4031214) [facility]enton[facility] Urine [id number] 19:49:58 Test Item Value Reference Range Interpretation Comments Legionella Urine Antigen Negative Interpretation (test code = 2628634) [facility]enton[facility] Urine [id number] 19:49:58 Test Item Value Reference Range Interpretation Comments Legionella Urine Antigen Negative Interpretation (test code = 3814916) [facility]entonLeg[facility] Urine Tyaejhv4854-53-97 19:49:58 Test Item Value Reference Range Interpretation Comments Legionella Urine Antigen Negative Interpretation (test code = 7942138) [facility]entonLeg[facility] Urine [id number] 19:49:58 Test Item Value Reference Range Interpretation Comments Legionella Urine Antigen Negative Interpretation (test code = 7904998) [facility] Hkrfqa1375-04-17 18:06:35Streptococcal Urine Antigen Path ReviewReviewed and Electronically signed by Pathologist:Mary Beth Parikh MD, PhD #[id number] [facility]ENTERUnGrace Medical Centertreptococcal Urine Antigen Path [id number] 18:06:35Streptococcal Urine Antigen Path ReviewReviewed and Electronically signed by Pathologist:Mary Beth Parikh MD, PhD #[id number] [facility]ENTERUnPerm[facility] Center Streptococcal Urine Antigen Path [id number] 18:06:35Streptococcal Urine Antigen Path ReviewReviewed and Electronically signed by Pathologist:Mary Beth Parikh MD, PhD #[id number] [facility]ENTERUnGr[facility] Medical Centertreptococcal Urine Antigen Path [id number] 18:06:35 Streptococcal Urine Antigen Path ReviewReviewed and Electronically signed by Pathologist:Mary Beth Parikh MD, PhD #[id number] [facility]ENTERUnGr[facility] Medical Centertreptococcal Urine Antigen Path Review 2021-10-16 18:06:35Streptococcal Urine Antigen Path ReviewReviewed and Electronically signed by Pathologist:Mary Beth Parikh MD, PhD #[id number] [facility]ENTERUnGr[facility] Medical Centertreptococcal Urine Antigen Path [id number] 18:06:35Streptococcal Urine Antigen Path ReviewReviewed and Electronically signed by Pathologist:Mary Beth Parikh MD, PhD #[id number] [facility]ENTERUn[facility] Streptococcal Urine Antigen Path [id number] 18:06:35Streptococcal Urine Antigen Path ReviewReviewed and Electronically signed by Pathologist:Mary Beth Parikh MD, PhD #[id number] [facility]ENTERUnGr[facility] Medical Centertreptococcus pneumoniae Urine Fjhavxt2009-37-68 16:43:46 Test Item Value Reference Range Interpretation Comments Streptococcal Urine Antigen Negative Negative Interpretation (test code = 92979478) [facility]ertreptococcus pneumoniae Urine Xkvwnpr7607-06-38 16:43:46 Test Item Value Reference Range Interpretation Comments Streptococcal Urine Antigen Negative Negative Interpretation (test code = 39169320) [facility] Centertreptococcus pneumoniae Urine Framymh3704-60-03 16:43:46 Test Item Value Reference Range Interpretation Comments Streptococcal Urine Antigen Negative Negative Interpretation (test code = 27980454) [facility]ertreptococcus pneumoniae Urine Vfmugbw3841-91-97 16:43:46 Test Item Value Reference Range Interpretation Comments Streptococcal Urine Antigen Negative Negative Interpretation (test code = 45580499) [facility] Centertreptococcus pneumoniae Urine Qijohfl9521-52-77 16:43:46 Test Item Value Reference Range Interpretation Comments Streptococcal Urine Antigen Negative Negative Interpretation (test code = 12978497) [facility] Centertreptococcus pneumoniae Urine Nhdusso9848-16-57 16:43:46 Test Item Value Reference Range Interpretation Comments Streptococcal Urine Antigen Negative Negative Interpretation (test code = 06495081) [facility] Centertreptococcus pneumoniae Urine Ujciqcx7572-94-98 16:43:46 Test Item Value Reference Range Interpretation Comments Streptococcal Urine Antigen Negative Negative Interpretation (test code = 90617386) [facility]2021-[facility]-15 18:48:52 Test Item Value Reference Range Interpretation Comments Troponin T (test code = 23 ng/L See_Comment H < 19 ng/L Suggest 44131-6) retest at 3 to 6 hours later [...] res ults. [Automated mess age] The system [employer] generated this result transmitted ref erence range: <=18. Th e reference range was not used to int erpret this result as normal/abnormal . Lab Interpretation Abnormal (test code = 35096-7) [facility]entonTrop[facility] ([facility])2021-10-15 18:48:52 Test Item Value Reference Range Interpretation Comments Troponin T (test code = 23 ng/L <=18 H < 19 ng/L Suggest 05820-4) retest at 3 to 6 hours later [...] ults. Lab Interpretation Abnormal (test code = 20325-3) [facility])2021-10-15 18:48:52 Test Item Value Reference Range Interpretation Comments Troponin T (test code = 23 ng/L <=18 H < 19 ng/L Suggest 58649-8) retest at 3 to 6 hours later [...] ults. Lab Interpretation Abnormal (test code = 45825-9) [facility]2021-10-15 18:48:52 Test Item Value Reference Range Interpretation Comments Troponin T (test code = 23 ng/L <=18 H < 19 ng/L Suggest 02966-6) retest at 3 to 6 hours later [...] ults. Lab Interpretation Abnormal (test code = 38910-8) [facility]2021-10-15 18:48:52 Test Item Value Reference Range Interpretation Comments Troponin T (test code = 23 ng/L See_Comment H < 19 ng/L Suggest 43945-0) retest at 3 to 6 hours later [...] res ults. [Automated mess age] The system [employer] generated this result transmitted ref erence range: <=18. Th e reference range was not used to int erpret this result as normal/abnormal . Lab Interpretation Abnormal (test code = 39186-6) [facility]2021-10-15 18:48:52 Test Item Value Reference Range Interpretation Comments Troponin T (test code = 23 ng/L See_Comment H < 19 ng/L Suggest 01997-1) retest at 3 to 6 hours later [...] res ults. [Automated mess age] The system [employer] generated this result transmitted ref erence range: <=18. Th e reference range was not used to int erpret this result as normal/abnormal . Lab Interpretation Abnormal (test code = 97155-7) [facility]2021-10-15 18:48:52 Test Item Value Reference Range Interpretation Comments Troponin T (test code = 23 ng/L See_Comment H < 19 ng/L Suggest 08705-2) retest at 3 to 6 hours later [...] res ults. [Automated mess age] The system [employer] generated this result transmitted ref erence range: <=18. Th e reference range was not used to int erpret this result as normal/abnormal . Lab Interpretation Abnormal (test code = 17115-7) [facility] Test Item Value Reference Range Interpretation Comments LDH (test code = 247 U/L 135-225 H Results gre ater than 63478-1) 1651 U/L may no t be reliable due to matrix effect w ith extended diluti on as it exceeds the transformer coil winder's recommended ching it. Caution should be exercised when interpreting nunez ch values and done in conjunction wit clinical contex t. Lab Interpretation (test Abnormal code = 36652-0) [facility] Test Item Value Reference Range Interpretation Comments LDH (test code = 247 U/L 135-225 H Results gre ater than 94805-3) 1651 U/L may no t be reliable due to matrix effect w ith extended diluti on as it exceeds the transformer coil winder's recommended ching it. Caution should be exercised when interpreting nunez ch values and done in conjunction [facility] clinical contex t. Lab Interpretation (test Abnormal code = 61002-9) [facility] 16:[facility]:02 Test Item Value Reference Range Interpretation Comments LDH (test code = 247 U/L 135-225 H Results gre ater than 52193-2) 1651 U/L may no t be reliable due to matrix effect w ith extended diluti on as it exceeds the transformer coil winder's recommended ching it. Caution should be exercised when interpreting nunez ch values and done in conjunction [facility] clinical contex t. Lab Interpretation (test Abnormal code = 46412-9) [facility]02 Test Item Value Reference Range Interpretation Comments LDH (test code = 247 U/L 135-225 H Results gre ater than 41979-3) 1651 U/L may no t be reliable due to matrix effect w ith extended diluti on as it exceeds the transformer coil winder's recommended ching it. Caution should be exercised when interpreting nunez ch values and done in conjunction [facility] clinical contex t. Lab Interpretation (test Abnormal code = 86140-6) [facility] 16:[facility]:02 Test Item Value Reference Range Interpretation Comments LDH (test code = 247 U/L 135-225 H Results gre ater than 96542-2) 1651 U/L may no t be reliable due to matrix effect w ith extended diluti on as it exceeds the transformer coil winder's recommended ching it. Caution should be exercised when interpreting nunez ch values and done in conjunction [facility] clinical contex t. Lab Interpretation (test Abnormal code = 05851-1) [facility] 16:[facility]:02 Test Item Value Reference Range Interpretation Comments LDH (test code = 247 U/L 135-225 H Results gre ater than 13782-5) 1651 U/L may no t be reliable due to matrix effect w ith extended diluti on as it exceeds the transformer coil winder's recommended ching it. Caution should be exercised when interpreting nunez ch values and done in conjunction [facility] clinical contex t. Lab Interpretation (test Abnormal code = 44402-1) [facility] 16:[facility]:02 Test Item Value Reference Range Interpretation Comments LDH (test code = 247 U/L 135-225 H Results gre ater than 66372-4) 1651 U/L may no t be reliable due to matrix effect w ith extended diluti on as it exceeds the transformer coil winder's recommended ching it. Caution should be exercised when interpreting nunez ch values and done in conjunction wit h clinical contex t. Lab Interpretation (test Abnormal code = 02902-3) [facility] 16:31:03 Test Item Value Reference Range Interpretation Comments NT ProBNP (test code = 137 pg/mL See_Comment H [Aut omated message] 12748-7) The system [employer] generated this result transmit lakhwinder reference range : <=125. The refe rence range was not u sed to interpret th is result as normal/abnormal . Lab Interpretation (test Abnormal code = 38880-2) [facility] 16:31:03 Test Item Value Reference Range Interpretation Comments NT ProBNP (test code = 97596-7) 137 pg/mL <=125 H Lab Interpretation (test code = Abnormal 90780-6) [facility] 16:31:03 Test Item Value Reference Range Interpretation Comments NT ProBNP (test code = 01115-9) 137 pg/mL <=125 H Lab Interpretation (test code = Abnormal 57292-3) [facility] 16:31:03 Test Item Value Reference Range Interpretation Comments NT ProBNP (test code = 94387-2) 137 pg/mL <=125 H Lab Interpretation (test code = Abnormal 42049-7) [facility]-15 16:31:03 Test Item Value Reference Range Interpretation Comments NT ProBNP (test code = 137 pg/mL See_Comment H [Aut omated message] 13817-7) The system [employer] generated this result transmit lakhwinder reference range : <=125. The refe rence range was not u sed to interpret th is result as normal/abnormal . Lab Interpretation (test Abnormal code = 53641-8) [facility] 16:31:03 Test Item Value Reference Range Interpretation Comments NT ProBNP (test code = 137 pg/mL See_Comment H [Aut omated message] 08784-9) The system [employer] generated this result transmit lakhwinder reference range : <=125. The refe rence range was not u sed to interpret th is result as normal/abnormal . Lab Interpretation (test Abnormal code = 84170-3) [facility] 16:31:03 Test Item Value Reference Range Interpretation Comments NT ProBNP (test code = 137 pg/mL See_Comment H [Aut omated message] 90997-0) The system [employer] generated this result transmit lakhwinder reference range : <=125. The refe rence range was not u sed to interpret th is result as normal/abnormal . Lab Interpretation (test Abnormal code = 34504-1) [facility] [id number] 16:31:01 Test Item Value Reference Range Interpretation Comments CK (test code = 2157-6) 48 U/L 39-308 [facility] Voyoac3760-40-89 16:31:01 Test Item Value Reference Range Interpretation Comments CK (test code = 2157-6) 48 U/L 39-308 [facility] Wryqcm6824-71-39 16:31:01 Test Item Value Reference Range Interpretation Comments CK (test code = 2157-6) 48 U/L 39-308 [facility] Umrhco1491-30-34 16:31:01 Test Item Value Reference Range Interpretation Comments CK (test code = 2157-6) 48 U/L 39-308 [facility] Dedsfp0558-42-03 16:31:01 Test Item Value Reference Range Interpretation Comments CK (test code = 2157-6) 48 U/L 39-308 [facility] Tjpked6818-26-48 16:31:01 Test Item Value Reference Range Interpretation Comments CK (test code = 2157-6) 48 U/L 39-308 [facility] [id number] 16:31:01 Test Item Value Reference Range Interpretation Comments CK (test code = 2157-6) 48 U/L 39-308 [facility]2022-04-18 16:31:00 Test Item Value Reference Range Interpretation Comments CK MB (test code = 2.2 ng/mL See_Comment [Automat ed message] The 29360-5) system which ge nerated this result tra nsmitted reference range : <=10.4. The reference r jose was not used to int erpret this result as normal/abnormal . [place]7332-04-18 16:31:00 Test Item Value Reference Range Interpretation Comments CK MB (test code = 64769-6) 2.2 ng/mL <=10.4 [place] [address]-04-18 16:31:00 Test Item Value Reference Range Interpretation Comments CK MB (test code = 33644-6) 2.2 ng/mL <=10.4 [place] [address]-04-18 16:31:00 Test Item Value Reference Range Interpretation Comments CK MB (test code = 07291-0) 2.2 ng/mL <=10.4 [facility]2022-04-18 16:31:00 Test Item Value Reference Range Interpretation Comments CK MB (test code = 2.2 ng/mL See_Comment [Automat ed message] The 54432-0) system which ge nerated this result tra nsmitted reference range : <=10.4. The reference r jose was not used to int erpret this result as normal/abnormal . [facility]2022-04-18 16:31:00 Test Item Value Reference Range Interpretation Comments CK MB (test code = 2.2 ng/mL See_Comment [Automat ed message] The 73511-1) system which ge nerated this result tra nsmitted reference range : <=10.4. The reference r jose was not used to int erpret this result as normal/abnormal . [facility]2022-04-18 16:31:00 Test Item Value Reference Range Interpretation Comments CK MB (test code = 2.2 ng/mL See_Comment [Automat ed message] The 79260-8) system which ge nerated this result tra nsmitted reference range : <=10.4. The reference r jose was not used to int erpret this result as normal/abnormal . [facility]Hcskyjdpdfvn-OR8255-10-18 16:04:24 Test Item Value Reference Range Interpretation Comments COVID19 Not Detected Not Detected (SARS-CoV-2) (test code = 39095-0) COVID19 SARS Inpatient Indication (test Admission code = 08803) Covid 19 Comment See Note The kacy S ARS-CoV-2 (test code = [place] [address]) use on the xenia s [employer] [...] sheet for patie nts provided by the transformer coil winder ([employer]) can be rev iewed at: https://www.fda .gov/m edia/368330/kunal nload. A fact sheet fo Health Care pro viders is provided by the transformer coil winder ([employer]) and can be reviewed at: https://www.fda .gov/m edia/239343/kunal nload Results must be interpreted wit hin [...] high-comple xity tests. The Microbiology Laboratory at [facility], CLIA Accreditation #[id number] and CAP Accreditation #[id number], verif ied the performance characteristics of this assay. Int ernal controls are us ed to monitor all sta ges of the test proces s. [facility]Wwpkqjwccsyc-TL0582-05-18 16:04:24 Test Item Value Reference Range Interpretation Comments COVID19 Not Detected Not Detected (SARS-CoV-2) (test code = 83637-3) COVID19 SARS Inpatient Indication (test Admission code = 76232) Covid 19 Comment See Note The kacy S ARS-CoV-2 (test code = [place] [address]) use on the xenia s [employer] [...] sheet for patie nts provided by the transformer coil winder ([employer] can be rev iewed at: https://www.fda .gov/m edia/450559/kunal nload. A fact sheet fo r Health Care pro viders is provided by the transformer coil winder ([employer]) and can be reviewed at: https://www.fda .gov/m edia/051222/kunal nload Results must be interpreted wit hin [...] high-comple xity tests. The [facility] Laboratory at [facility], CLIA Accreditation #[id number] and CAP Accreditation #[id number], verif ied the performance characteristics of this assay. Int ernal controls are us ed to monitor all sta ges of the test proces s. [facility]-2[facility]Yemtuzegngck-YY4738-13-18 16:04:24 Test Item Value Reference Range Interpretation Comments COVID19 Not Detected Not Detected (SARS-CoV-2) (test code = 10289-2) COVID19 SARS Inpatient Indication (test Admission code = 28101) Covid 19 Comment See Note The kacy S ARS-CoV-2 (test code = [place] [address]) use on the xenia s [employer] [...] sheet for patie nts provided by the transformer coil winder ([employer]) can be rev iewed at: https://www.fda .gov/m edia/094871/kunal nload. A fact sheet fo r Health Care pro viders is provided by the transformer coil winder ([employer]) and can be reviewed at: https://www.fda .gov/m edia/187308/kunal nload Results must be interpreted wit hin [...] high-comple xity tests. The Microbiology Laboratory at [facility], CLIA Accreditation #[id number] and CAP Accreditation #[id number], verif ied the performance characteristics of this assay. Int ernal controls are us ed to monitor all sta ges of the test proces s. [facility]Uxjawhzsdyil-[id number] 16:04:24 Test Item Value Reference Range Interpretation Comments COVID19 Not Detected Not Detected (SARS-CoV-2) (test code = 10852-5) COVID19 SARS Inpatient Indication (test Admission code = 55652) Covid 19 Comment See Note The kacy S ARS-CoV-2 (test code = [place] [address]) use on the xenia s [employer] [...] sheet for patie nts provided by the transformer coil winder ([employer]) can be rev iewed at: https://www.fda .gov/m edia/767514/kunal nload. A fact sheet fo r Health Care pro viders is provided by the transformer coil winder ([employer]) and can be reviewed at: https://www.fda .gov/m edia/806923/kunal nload Results must be interpreted wit hin [...] high-comple xity tests. The [facility] Laboratory at [facility], CLIA Accreditation #[id number] and CAP Accreditation #[id number], verif ied the performance characteristics of this assay. Int ernal controls are us ed to monitor all sta ges of the test proces s. [facility]Hnhkvvjoqrys-[id number] 16:04:24 Test Item Value Reference Range Interpretation Comments COVID19 Not Detected Not Detected (SARS-CoV-2) (test code = 22524-9) COVID19 SARS Inpatient Indication (test Admission code = 37469) Covid 19 Comment See Note The kacy S ARS-CoV-2 (test code = [place] [address]) use on the xenia s [employer] [...] sheet for patie nts provided by the transformer coil winder ([employer]) can be rev iewed at: https://www.fda .gov/m edia/794293/kunal nload. A fact sheet fo r Health Care pro viders is provided by the transformer coil winder ([employer]) and can be reviewed at: https://www.fda .gov/m edia/629359/kunal nload Results must be interpreted wit hin [...] high-comple xity tests. The [facility] at [facility], CLIA Accreditation #[id number] and CAP Accreditation #[id number], verif ied the performance characteristics of this assay. Int ernal controls are us ed to monitor all sta ges of the test proces s. [facility]Lauizjtvxprg-[id number] 16:04:24 Test Item Value Reference Range Interpretation Comments COVID19 Not Detected Not Detected (SARS-CoV-2) (test code = 77449-7) COVID19 SARS Inpatient Indication (test Admission code = 41693) Covid 19 Comment See Note The kacy S ARS-CoV-2 (test code = [place] [address]) use on the xenia s [employer] [...] sheet for patie nts provided by the transformer coil winder ([employer]) can be rev iewed at: https://www.fda .gov/m edia/581328/kunal nload. A fact sheet fo r Health Care pro viders is provided by the transformer coil winder ([employer]) and can be reviewed at: https://www.fda .gov/m edia/896172/kunal nload Results must be interpreted wit hin [...] high-comple xity tests. The [facility] at [facility], CLIA Accreditation #[id number] and CAP Accreditation #[id number], verif ied the performance characteristics of this assay. Int ernal controls are us ed to monitor all sta ges of the test proces s. [facility]Cuphbjllonrp-[id number] 16:04:24 Test Item Value Reference Range Interpretation Comments COVID19 Not Detected Not Detected (SARS-CoV-2) (test code = 32206-1) COVID19 SARS Inpatient Indication (test Admission code = 38867) Covid 19 Comment See Note The kacy S ARS-CoV-2 (test code = [place] [address]) use on the xenia s [employer] [...] sheet for patie nts provided by the transformer coil winder ([employer]) can be rev iewed at: https://www.fda .gov/m edia/413181/kunal nload. A fact sheet fo Health Care pro viders is provided by the transformer coil winder ([employer]) and can be reviewed at: https://www.fda .gov/m edia/010426/kunal nload Results must be interpreted wit hin [...] high-comple xity tests. The [facility] Laboratory at [facility], CLIA Accreditation #[id number] and CAP Accreditation #[id number], verif ied the performance characteristics of this assay. Int ernal controls are us ed to monitor all sta ges of the test proces s. [facility] 15:47[facility]24 Test Item Value Reference Range Interpretation Comments aPTT (test code = 29.9 See_Comment [Automate d message] The 70177-9) system which ge nerated this result transmit lakhwinder reference range : 24.7 - 36.8 second(s). The reference range was not used to interpr et this result as paras l/abnormal. [facility] Test Item Value Reference Range Interpretation Comments aPTT (test code = 29.9 See_Comment [Automate d message] The [address] [place] [address]) system which ge nerated this result transmit lakhwinder reference range : 24.7 - 36.8 second(s). The reference range was not used to interpr et this result as paras l/abnormal. [place] 81265022-04-18 15:47:24 Test Item Value Reference Range Interpretation Comments aPTT (test code = 29.9 See_Comment [Automate d message] The [address] [place] [address]) system which ge nerated this result transmit lakhwinder reference range : 24.7 - 36.8 second(s). The reference range was not used to interpr et this result as paras l/abnormal. [facility] 15:47:24 Test Item Value Reference Range Interpretation Comments aPTT (test code = 29.9 See_Comment [Automate d message] The [address] [place] [address]) system which ge nerated this result transmit lakhwinder reference range : 24.7 - 36.8 second(s). The reference range was not used to interpr et this result as paras l/abnormal. [facility] Test Item Value Reference Range Interpretation Comments aPTT (test code = 29.9 See_Comment [Automate d message] The [address] [place] [address]) system which ge nerated this result transmit lakhwinder reference range : 24.7 - 36.8 second(s). The reference range was not used to interpr et this result as paras l/abnormal. [facility] 15:47:24 Test Item Value Reference Range Interpretation Comments aPTT (test code = 29.9 See_Comment [Automate d message] The [address] [place] [address]) system which ge nerated this result transmit lakhwinder reference range : 24.7 - 36.8 second(s). The reference range was not used to interpr et this result as paras l/abnormal. [facility] 15:47:24 Test Item Value Reference Range Interpretation Comments aPTT (test code = 29.9 See_Comment [Automate d message] The 11420-2) system which ge nerated this result transmit lakhwinder reference range : 24.7 - 36.8 second(s). The reference range was not used to interpr et this result as paras l/abnormal. [facility] with [id number] 15:47:23 Test Item Value Reference Range Interpretation Comments PT (test code = 5902-2) 13.5 See_Comment [Au tomated message] The system [employer] generated this result transmitted ref erence range: 11.5 - 1 3.9 second(s). The reference range was not used to int erpret this result as normal/abnormal . INR (test code = 6301-6) 1.11 0.90-1.10 H Lab Interpretation (test Abnormal code = 74340-5) [facility] [id number] 15:47:23 Test Item Value Reference Range Interpretation Comments PT (test code = 5902-2) 13.5 See_Comment [Au tomated message] The system [employer] generated this result transmitted ref erence range: 11.5 - 1 3.9 second(s). The reference range was not used to int erpret this result as normal/abnormal . INR (test code = 6301-6) 1.11 0.90-1.10 H Lab Interpretation (test Abnormal code = 95098-7) [facility] [id number] 15:47:23 Test Item Value Reference Range Interpretation Comments PT (test code = 5902-2) 13.5 See_Comment [Au tomated message] The system [employer] generated this result transmitted ref erence range: 11.5 - 1 3.9 second(s). The reference range was not used to int erpret this result as normal/abnormal . INR (test code = 6301-6) 1.11 0.90-1.10 H Lab Interpretation (test Abnormal code = 40790-7) [facility] with [id number] 15:47:23 Test Item Value Reference Range Interpretation Comments PT (test code = 5902-2) 13.5 See_Comment [Au tomated message] The system [employer] generated this result transmitted ref erence range: 11.5 - 1 3.9 second(s). The reference range was not used to int erpret this result as normal/abnormal . INR (test code = 6301-6) 1.11 0.90-1.10 H Lab Interpretation (test Abnormal code = 47223-1) [facility] with [id number] 15:47:23 Test Item Value Reference Range Interpretation Comments PT (test code = 5902-2) 13.5 See_Comment [Au tomated message] The system [employer] generated this result transmitted ref erence range: 11.5 - 1 3.9 second(s). The reference range was not used to int erpret this result as normal/abnormal . INR (test code = 6301-6) 1.11 0.90-1.10 H Lab Interpretation (test Abnormal code = 16851-8) [facility] with [id number] 15:47:23 Test Item Value Reference Range Interpretation Comments PT (test code = 5902-2) 13.5 See_Comment [Au tomated message] The system [employer] generated this result transmitted ref erence range: 11.5 - 1 3.9 second(s). The reference range was not used to int erpret this result as normal/abnormal . INR (test code = 6301-6) 1.11 0.90-1.10 H Lab Interpretation (test Abnormal code = 42566-0) [facility] with [id number] 15:47:23 Test Item Value Reference Range Interpretation Comments PT (test code = 5902-2) 13.5 See_Comment [Au tomated message] The system [employer] generated this result transmitted ref erence range: 11.5 - 1 3.9 second(s). The reference range was not used to int erpret this result as normal/abnormal . INR (test code = 6301-6) 1.11 0.90-1.10 H Lab Interpretation (test Abnormal code = 85100-8) [facility], Nasopharyngeal [id number] 01:19:11 Test Item Value Reference Range Interpretation [...] Not Detected Not Detected (test code = 12110-2) Human Metapneumovirus Not Detected Not Detected (test [...] Detected Not Detected Parapertussis (test code = 09294) Bordetella pertussis Not Detected Not Detected (test [...] including SARS-CoV-2, from a single nasopharyngeal swab ([employer]) specimen obtained from individuals suspected of respiratory [...] that may not be detected by an [employer] specimen. Internal controls are used to monitor [...] high-complexity tests. The Microbiology Laboratory at [facility], CLIA Accreditation #[id number] and CAP Accreditation #[id number], verified the performance characteristics of this assay. [facility] performs the assay using the [employer] System. Lab Interpretation Abnormal (test code = 02308-1) [facility], Nasopharyngeal [id number] 01:19:11 Test Item Value Reference Range Interpretation Comments Adenovirus (test code = Not Detected Not Detected 474) Coronavirus 229E (test Not Detected Not Detected code = 5349) Coronavirus HKU1 (test Detected Not Detected A code = 5350) Coronavirus NL63 (test Not Detected Not Detected code = 5351) Coronavirus OC43 (test Not Detected Not Detected code = 5352) COVID19 (SARS-CoV-2) Not Detected Not Detected (test code = 43892-8) Human Metapneumovirus Not Detected Not Detected (test [...] Detected Not Detected Parapertussis (test code = 59294) Bordetella pertussis Not Detected Not Detected (test code = 4854) Chlamydiophila Not Detected Not Detected pneumoniae (test code = 5139) Mycoplasma pneumoniae Not Detected Not Detected (test code = 6203) PAIGE (test code = PAIGE) The [employer] RP2.1 is a real-time, nested multiplexed polymerase chain reaction test designed to simultaneously identify nucleic acids from 22 different viruses and bacteria associated with respiratory tract infection, including SARS-CoV-2, from a single nasopharyngeal swab ([employer]) specimen obtained from individuals suspected of respiratory [...] that may not be detected by an [employer] specimen. Internal controls are used to monitor [...] high-complexity tests. The Microbiology Laboratory at [facility], CLIA Accreditation #[id number] and CAP Accreditation #[id number], verified the performance characteristics of this assay. Microbiology Laboratory at [facility] performs the assay using the Movatu System. Lab Interpretation Abnormal (test code = 00665-8) [facility], Nasopharyngeal [id number] 01:19:11 Test Item Value Reference Range Interpretation [...] Not Detected Not Detected (test code = 00389-5) Human Metapneumovirus Not Detected Not Detected (test [...] Detected Not Detected Parapertussis (test code = 20869) Bordetella pertussis Not Detected Not Detected (test code = 4854) Chlamydiophila Not Detected Not Detected pneumoniae (test code = 5139) Mycoplasma pneumoniae Not Detected Not Detected (test code = 6203) PAIGE (test code = PAIGE) The [employer] RP2.1 is a real-time, nested multiplexed polymerase chain reaction test designed to simultaneously identify nucleic acids from 22 different viruses and bacteria associated with respiratory tract infection, including SARS-CoV-2, from a single nasopharyngeal swab ([employer]) specimen obtained from individuals suspected of respiratory [...] that may not be detected by an [employer] specimen. Internal controls are used to monitor [...] high-complexity tests. The Microbiology [facility] at [facility], CLIA Accreditation #[id number] and CAP Accreditation #[id number], verified the performance characteristics of this assay. [facility] at [facility] performs the assay using the Movatu System. Lab Interpretation Abnormal (test code = 11852-5) [facility], Nasopharyngeal [id number] 01:19:11 Test Item Value Reference Range Interpretation [...] Not Detected Not Detected (test code = 12753-0) Human Metapneumovirus Not Detected Not Detected (test [...] Detected Not Detected Parapertussis (test code = 50499) Bordetella pertussis Not Detected Not Detected (test [...] including SARS-CoV-2, from a single nasopharyngeal swab ([employer]) specimen obtained from individuals suspected of respiratory [...] that may not be detected by an [employer] specimen. Internal controls are used to monitor [...] high-complexity tests. The Microbiology [facility] at [facility], CLIA Accreditation #[id number] and CAP Accreditation #[id number], verified the performance characteristics of this assay. [facility] at [facility] performs the assay using the Movatu System. Lab Interpretation Abnormal (test code = 46400-9) [facility], Nasopharyngeal [id number] 01:19:11 Test Item Value Reference Range Interpretation Comments Adenovirus (test code = Not Detected Not Detected 0677) Coronavirus 229E (test Not Detected Not Detected code = 5349) Coronavirus HKU1 (test Detected Not Detected A code = 5350) Coronavirus NL63 (test Not Detected Not Detected code = 5351) Coronavirus OC43 (test Not Detected Not Detected code = 5352) COVID19 (SARS-CoV-2) Not Detected Not Detected (test code = 19417-4) Human Metapneumovirus Not Detected Not Detected (test [...] Detected Not Detected Parapertussis (test code = 61084) Bordetella pertussis Not Detected Not Detected (test [...] including SARS-CoV-2, from a single nasopharyngeal swab ([employer]) specimen obtained from individuals suspected of respiratory [...] that may not be detected by an [employer] specimen. Internal controls are used to monitor [...] high-complexity tests. The Microbiology [facility] at [facility], CLIA Accreditation #[id number] and CAP Accreditation #[id number], verified the performance characteristics of this assay. Micro[facility] at [facility] performs the assay using the Movatu System. Lab Interpretation Abnormal (test code = 85734-5) [facility] [id number] 13:32:30 Test Item Value Reference Range Interpretation Comments POC Crea (test 0.6 mg/dL 0.6-1.3 Medications, code = 61244-9) especially h ydroxyurea or supplements, such as [...] Normal eGF R >= 60 code = 61202-4) mL/min/1.73 m2 The eGFR is calcula lakhwinder [...] to severe decre ase in GFR 30-444 Margaret re decrease in GFR 15-295 Kidney failure <15 (or dialysis) [Auto mated message] The sy stem which generated this result transmit lakhwinder reference range : >=60 mL/min/1.73 m2. The reference range was not used to int erpret this result as normal/abnormal . POC eGFR-JCARLOS (test 105 See_Comment Normal eG FR >= 60 code = 31170-7) mL/min/1.73 m2 The eGFR is calcula lakhwinder [...] to severe decre ase in GFR 30-444 Margaret re decrease in GFR 15-295 Kidney failure <15 (or dialysis) [Auto mated message] The sy stem which generated this result transmit lakhwinder reference range : >=60 mL/min/1.73 m2. The reference range was not used to int erpret this result as normal/abnormal . POC Clean Dev Yes (test code = 6672) Performing Lab [facility] (test code = [facility] [address]) Clinical Lab, [address], [place], [place] [address]; [employer] Consultant: Aletha Arciniega MD [facility] [id number] 13:32:30 Test Item Value Reference Range Interpretation Comments POC Crea (test 0.6 mg/dL 0.6-1.3 Medications, code = 14218-1) especially h ydroxyurea or supplements, such as [...] Normal eGF R >= 60 code = 63727-8) mL/min/1.73 m2 The eGFR is calcula lakhwinder [...] to severe decre ase in GFR 30-444 Margaret re decrease in GFR 15-295 Kidney failure <15 (or dialysis) [Auto mated message] The sy stem which generated this result transmit lakhwinder reference range : >=60 mL/min/1.73 m2. The reference range was not used to int erpret this result as normal/abnormal . POC eGFR-JCARLOS (test 105 See_Comment Normal eG FR >= 60 code = 76116-7) mL/min/1.73 m2 The eGFR is calcula lakhwinder [...] to severe decre ase in GFR 30-444 Margaret re decrease in GFR 15-295 Kidney failure <15 (or dialysis) [Auto mated message] The sy stem which generated this result transmit lakhwinder reference range : >=60 mL/min/1.73 m2. The reference range was not used to int erpret this result as normal/abnormal . POC Clean Dev Yes (test code = 6672) Performing Lab [facility] (test code = [facility] [address]) Clinical Lab, [address] [place] [address], [place], [place] [address]; [employer] Consultant: Aletha Arciniega MD [facility] [id number] 13:32:30 Test Item Value Reference Range Interpretation Comments POC Crea (test 0.6 mg/dL 0.6-1.3 Medications, code = 28432-9) especially h ydroxyurea or supplements, such as [...] Normal eGF R >= 60 code = 13107-2) mL/min/1.73 m2 The eGFR is calcula lakhwinder [...] to severe decre ase in GFR 30-444 Margaret re decrease in GFR 15-295 Kidney failure <15 (or dialysis) [Auto mated message] The sy stem which generated this result transmit lakhwinder reference range : >=60 mL/min/1.73 m2. The reference range was not used to int erpret this result as normal/abnormal . POC eGFR-JCARLOS (test 105 See_Comment Normal eG FR >= 60 code = 44344-1) mL/min/1.73 m2 The eGFR is calcula lakhwinder [...] to severe decre ase in GFR 30-444 Margaret re decrease in GFR 15-295 Kidney failure <15 (or dialysis) [Auto mated message] The sy stem which generated this result transmit lakhwinder reference range : >=60 mL/min/1.73 m2. The reference range was not used to int erpret this result as normal/abnormal . POC Clean Dev Yes (test code = 6672) Performing Lab [facility] (test code = [facility] [address]) Clinical Lab, [address], [place], [place] [address]; [employer] Consultant: Aletha Arciniega MD [facility] [id number] 13:32:30 Test Item Value Reference Range Interpretation Comments POC Crea (test 0.6 mg/dL 0.6-1.3 Medications, code = 29270-2) especially h ydroxyurea or supplements, such as [...] Normal eGF R >= 60 code = 46831-7) mL/min/1.73 m2 The eGFR is calcula lakhwinder [...] to severe decre ase in GFR 30-444 Margaret re decrease in GFR 15-295 Kidney f ailure <15 (or dialysi s) [Automated mess age] The system [employer] generated this result transmitted ref erence range: >=60 mL/min/1.73 m2. The reference range was not used to int erpret this result as normal/abnormal . POC eGFR-JCARLOS (test 105 See_Comment Normal eG FR >= 60 code = 79728-1) mL/min/1.73 m2 The eGFR is calcula lakhwinder [...] to severe decre ase in GFR 30-444 Margaret re decrease in GFR 15-295 Kidney failure <15 (or dialysis) [Auto mated message] The sy stem which generated this result transmit lakhwinder reference range : >=60 mL/min/1.73 m2. The reference range was not used to int erpret this result as normal/abnormal . POC Clean Dev Yes (test code = 6672) Performing Lab [facility] (test code = [facility] [address]) Clinical Lab, [address] [facility], [place], [place] [address]; [employer] Consultant: Aletha Arciniega MD [facility] [place]
[2023-05-11] MEDS ORDERED: FLUORESCEIN SODIUM 1 MG/WRAP ONE (11:28)
[2023-05-11] MEDS ORDERED: TETRACAINE HCL 0.5% 5 ML OPTH ONE (11:28)
[2023-05-11] MEDS ORDERED: ERYTHROMYCIN 3.5GM OPTH OINT OP ONE (11:30)
[2023-05-11] MEDS ORDERED: ACYCLOVIR IVPB ONE (12:00)
[2023-05-11] MEDS ORDERED: NA CHLORIDE 0.9% IVPB ONE (12:00)
[2023-05-11] MEDS ORDERED: HYDROCODONE/APAP 5/325 MG TAB ONE (12:01)
[2023-05-11] MEDS ORDERED: KETOROLAC 30 MG/ML INJ ONE (12:02)
[2023-05-11 12:20] LABS: Absolute Lymphocytes (CBC) 1.1 K/uL (0.7-4.9); Hematocrit 30.1 % (39.6-49.0); Lymphocytes % 24.2 % (15.3-44.8); MCV 95.5 fL (80-100); Platelets 294 thou/uL (152-406); RBC Red Blood Cell Count 3.15 M/uL (4.33-5.43)
[2023-05-11 12:30] LABS: Albumin 2.6 g/dL (3.4-5.0); Bilirubin Total 0.2 mg/dL (0.2-1.0); Potassium 3.2 mEq/L (3.5-5.1); Protein, Total 6.7 g/dL (6.4-8.2)
[2023-05-11] MEDS ORDERED: LIDOCAINE HCL JELLY 2% 6 ML SYRINGE TOP ONE (13:16)
--- NOTE | 2023-05-11 14:32 | ER ---
Nurse's Notes [facility] Name: Chato Moreno IV Age: 67 yrs Sex: Male : 1955 Arrival Date: 05/11/2023 Time: 10:51 Bed 17 Private MD: Diagnosis: Shingles Presentation: 05/11 10:54 Chief complaint: EMS states: toned out for rash on head and swelling on right side of tm6 face. Coronavirus screen: Vaccine status: Patient reports receiving the 2nd dose of the covid vaccine. Client denies travel out of the [place] in the last 14 days. Ebola Screen: Patient negative for fever greater than or equal to 101.5 degrees Fahrenheit, and additional compatible Ebola Virus Disease symptoms Patient denies exposure to infectious person. Patient denies travel to an Ebola-affected area in the 21 days before illness onset. No symptoms or risks identified at this time. Initial Sepsis Screen: Does the patient meet any 2 criteria? No. Patient's initial sepsis screen is negative. Does the patient have a suspected source of infection? No. Patient's initial sepsis screen is negative. Risk Assessment: Do you want to hurt yourself or someone else? Patient reports no desire to harm self or others. Onset of symptoms is unknown. 10:54 Method Of Arrival: EMS: [facility] tm6 10:54 Acuity: STEWART 3 tm6 Triage Assessment: 10:56 General: Appears uncomfortable, unkempt, Behavior is cooperative, fussy. Pain: tm6 Complains of pain in face and right eye. EENT: Eyes swelling around right eye. Neuro: Level of Consciousness is awake, alert, obeys commands, Oriented to person, place, time, situation, Appropriate for age. Cardiovascular: Capillary refill < 3 seconds Patient's skin is warm and dry. Respiratory: Airway is patent Respiratory effort is even, unlabored, Respiratory pattern is regular, symmetrical. GI: Abdomen is flat. : No signs and/or symptoms were reported regarding the genitourinary system. Derm: Rash noted that is red. Musculoskeletal: No signs and/or symptoms reported regarding the musculoskeletal system. Historical: - Allergies: 10:56 No Known Allergies; tm6 - PMHx: 10:56 Atrial fibrillation; COPD; Emphysema; Lung Cancer; Pneumonia; tm6 - PSHx: 10:56 Cholecystectomy; tm6 - Immunization history:: Adult Immunizations up to date. - Social history:: Smoking status: Smoking status: Patient reports the use of cigarette tobacco products, denies chronic smoking, but will smoke occasionally. Screenin:00 [facility] ED Fall Risk Assessment (Adult) History of falling in the last 3 months, tm6 including since admission No falls in past 3 months (0 pts). Abuse screen: Denies threats or abuse. Denies injuries from another. Nutritional screening: No deficits noted. Tuberculosis screening: No symptoms or risk factors identified. Assessment: 11:00 Reassessment: see triage assessment. tm6 12:11 Pain: Complains of pain in face Pain currently is 7 out of 10 on a pain scale. tm6 12:50 Reassessment: Pt c/o pain to face, MD was notified. . aa5 13:09 Reassessment: Patient is alert, oriented x 3, equal unlabored respirations, skin aa5 warm/dry/pink. 13:24 Reassessment: Patient appears in no apparent distress at this time. tm6 14:22 Reassessment: Patient appears in no apparent distress at this time. Patient and/or tm6 family updated on plan of care and expected duration. Pain level reassessed. Patient is alert, oriented x 3, equal unlabored respirations, skin warm/dry/pink. 15:11 Reassessment: Patient appears in no apparent distress at this time. Patient and/or tm6 family updated on plan of care and expected duration. Pain level reassessed. Patient is alert, oriented x 3, equal unlabored respirations, skin warm/dry/pink. Vital Signs: 10:54 BP 131 / 87; Pulse 79; Resp 19; Temp 98.4(O); Pulse Ox 100% ; tm6 10:56 BP 131 / 87; Pulse 77; Pulse Ox 100% ; tm6 11:01 Weight 46.2 kg; Height 5 ft. 5 in. ; tm6 12:10 BP 126 / 78; Pulse 69; Pulse Ox 100% ; tm6 13:25 BP 104 / 73; Pulse 66; Resp 15; Pulse Ox 100% on R/A; tm6 14:22 BP 105 / 70; Pulse 66; Pulse Ox 100% ; tm6 11:01 Body Mass Index 16.95 (46.20 kg, 165.1 cm) tm6 ED Course: 10:54 Patient arrived in ED. tm6 10:54 Derrick Haddad, ELLA is Primary Nurse. tm6 10:55 Zackery Pozo MD is Attending Physician. ec2 10:56 Triage completed. tm6 10:56 Arm band placed on right wrist. tm6 11:00 Patient has correct armband on for positive identification. Bed in low position. Call tm6 light in reach. Side rails up X2. Provided Education on: monitoring vital signs. Report received from [facility]. Client placed on continuous cardiac and pulse oximetry monitoring. NIBP monitoring applied. Noise minimized. 11:00 No provider procedures requiring assistance completed. tm6 11:12 Missed attempt(s): 22 gauge in left upper arm. tm6 11:15 Missed attempt(s): 22 gauge in left antecubital area. tm6 11:25 CMP Sent. ld1 11:25 CBC with Diff Sent. ld1 11:26 Inserted saline lock: 20 gauge in right forearm, using aseptic technique. Blood ld1 collected. Missed attempt(s): 20 gauge in right antecubital area. 14:35 Nain Bradley MD is Referral Physician. ec2 15:11 Patient did not have IV access during this emergency room visit. intact, bleeding tm6 controlled, No redness/swelling at site. Pressure dressing applied. Administered Medications: 12:09 Drug: Fluorescein Ophthalmic Strip 1 strip Ophthalmic once Route: Ophthalmic; Site: tm6 right eye; 12:09 Drug: Acyclovir IVPB 10 mg/kg IVPB once Route: IVPB; Site: right forearm; tm6 12:09 Drug: Ketorolac IVP 15 mg IVP once Route: IVP; Site: right femoral; tm6 12:09 Drug: HYDROcodone-acetaminophen PO 5 mg-325 mg 1 tabs PO once Route: PO; tm6 12:10 Drug: ERYTHromycin Ophthalmic Ointment 1 application Ophthalmic once Route: Ophthalmic; tm6 Site: right eye; 12:10 Drug: Tetracaine Ophthalmic Drops 0.5 % 1 drops Ophthalmic once Route: Ophthalmic; tm6 Site: right eye; 13:09 CANCELLED (Physician Discretion): lidocainesolution (4%) 1 application Topical once aa5 13:09 Drug: Glydo Gel 2 % 1 application Topical once {Note: right side of head and face .} aa5 Route: Topical; Site: face; Medication: 15:11 VIS not applicable for this client. tm6 Outcome: 14:32 Discharge ordered by . ec2 15:11 Discharged to home via wheelchair, tm6 15:11 Condition: stable 15:11 Discharge instructions given to patient, Instructed on discharge instructions, follow up and referral plans. medication usage, Demonstrated understanding of instructions, follow-up care, medications, Prescriptions given X 4, 15:12 Patient left the ED. tm6 Signatures: Queenie Baird, RN RN aa5 Cheryl Stevens RN RN ld1 Zackery Pozo MD MD ec2 Derrick Haddad RN RN tm6
--- NOTE | 2023-05-11 14:32 | EDPHYS ---
Physician Documentation [facility] Name: Chato Moreno IV Age: 67 yrs Sex: Male : 1955 Arrival Date: 05/11/2023 Time: 10:51 Bed 17 Private MD: ED Physician Zackery Pozo HPI: 05/11 11:01 This 67 yrs old Male presents to ER via EMS with complaints of Rash, Facial ec2 Swelling. 11:01 Patient arrives today for evaluation of right-sided facial rash along with pain, has ec2 progressed to involve the top of the head as well as caused tearing of the eye. Patient reports no fevers or chills however does report a recent hospitalization. Medication review shows that patient has been on hydrocortisone p.o. recently.. Historical: - Allergies: 10:56 No Known Allergies; tm6 - PMHx: 10:56 Atrial fibrillation; COPD; Emphysema; Lung Cancer; Pneumonia; tm6 - PSHx: 10:56 Cholecystectomy; tm6 - Immunization history:: Adult Immunizations up to date. - Social history:: Smoking status: Smoking status: Patient reports the use of cigarette tobacco products, denies chronic smoking, but will smoke occasionally. ROS: 11:01 Constitutional: as per hpi ec2 Exam: 11:01 Constitutional: GEN: NAD Head: atraumatic Eyes: EOMI Ears: External ears are ec2 normal. CV: regular rate LUNGS: no respiratory distress ABD: non-distended SKIN: Vesicular rash noted to the top of the head on the right side with crusting associated, right-sided facial rash noted, positive Evangelista sign MSK: no evidence of trauma NEURO: moves all extremities equally Vital Signs: 10:54 BP 131 / 87; Pulse 79; Resp 19; Temp 98.4(O); Pulse Ox 100% ; tm6 10:56 BP 131 / 87; Pulse 77; Pulse Ox 100% ; tm6 11:01 Weight 46.2 kg; Height 5 ft. 5 in. ; tm6 12:10 BP 126 / 78; Pulse 69; Pulse Ox 100% ; tm6 13:25 BP 104 / 73; Pulse 66; Resp 15; Pulse Ox 100% on R/A; tm6 14:22 BP 105 / 70; Pulse 66; Pulse Ox 100% ; tm6 11:01 Body Mass Index 16.95 (46.20 kg, 165.1 cm) tm6 MDM: 10:55 Patient medically screened. ec2 11:01 Data reviewed: vital signs. ED course: Patient arrives today for evaluation of a facial ec2 rash as well as eye tearing. Examination remarkable for skin findings as noted above. My concern is for shingles, specifically for herpes ophthalmicus, will perform corneal stain and further assess the patient's eye involvement. Currently considering nonspecific rash, shingles, low suspicion for TN or SJS.. 11:58 ED course: Corneal stain performed by myself, shows no dendritic lesions or pseudo ec2 dendritic lesions. No evidence of abrasions noted. We will proceed with topical antibiotic ointment.. 12:40 ED course: CBC is reassuring without any evidence of significant leukocytosis, ec2 reassuring metabolic profile with slight hypokalemia noted. . 05/11 10:59 Order name: CBC with Diff; Complete Time: 12:40 ec2 05/11 10:59 Order name: CMP; Complete Time: 12:40 ec2 05/11 10:59 Order name: Fluoresene Opth strip; Complete Time: 11:18 ec2 05/11 10:59 Order name: Eye Tray; Complete Time: 11:18 ec2 05/11 10:59 Order name: Visual Acuity; Complete Time: 11:18 ec2 Administered Medications: 12:09 Drug: Fluorescein Ophthalmic Strip 1 strip Ophthalmic once Route: Ophthalmic; Site: tm6 right eye; 12:09 Drug: Acyclovir IVPB 10 mg/kg IVPB once Route: IVPB; Site: right forearm; tm6 12:09 Drug: Ketorolac IVP 15 mg IVP once Route: IVP; Site: right femoral; tm6 12:09 Drug: HYDROcodone-acetaminophen PO 5 mg-325 mg 1 tabs PO once Route: PO; tm6 12:10 Drug: ERYTHromycin Ophthalmic Ointment 1 application Ophthalmic once Route: Ophthalmic; tm6 Site: right eye; 12:10 Drug: Tetracaine Ophthalmic Drops 0.5 % 1 drops Ophthalmic once Route: Ophthalmic; tm6 Site: right eye; 13:09 CANCELLED (Physician Discretion): lidocainesolution (4%) 1 application Topical once aa5 13:09 Drug: Glydo Gel 2 % 1 application Topical once {Note: right side of head and face .} aa5 Route: Topical; Site: face; Disposition Summary: 05/11/23 14:32 Discharge Ordered Notes: Location: Home ec2 Condition: Stable ec2 Diagnosis - Shingles ec2 Followup: ec2 - With: Nain Bradley MD - When: - Reason: Continuance of care Discharge Instructions: - Discharge Summary Sheet ec2 Forms: - SBAR form ll1 - Medication Reconciliation Form ec2 - Thank You Letter ec2 - Antibiotic Education ec2 - Prescription Opioid Use ec2 - Patient Portal Instructions ec2 - Leadership Thank You Letter ec2 Prescriptions: - acetaminophen-codeine 300-15 mg Oral tablet - take 2 tablet ORAL route 3 times per day; 10 tablet; Refills: 0, Product ec2 Selection Permitted - capsaicin 0.075 % Topical cream - apply 1 application TOPICAL route 4 times per day do not wash area for at least ec2 30 min after application; 1 unit; Refills: 0, Product Selection Permitted - Acyclovir 800 mg Oral Tablet - take 1 tablet ORAL route 5 times per day for 10 days; 50 tablet; Refills: 0, ec2 Product Selection Permitted - Erythromycin 5 mg/gram (0.5 %) Ophthalmic ointment - apply 1 centimeter OPHTHALMIC route 2-3 times daily for 7 days; 1 unit; ec2 Refills: 0, Product Selection Permitted Signatures: Dispatcher [employer] Queenie Whitley, RN RN aa5 Zackery Pozo MD MD ec2 Derrick Haddad RN RN tm6 Corrections: (The following items were deleted from the chart) 13:09 13:02 Lidocaine Topical Solution (4%) 1 application Topical once ordered. ec2 aa5
[2023-05-11 15:23] VITALS: TEMP 98.4; O2SAT 100
[2023-05-11 15:41] VITALS: BP 105/70
== END 2023-05-11 15:12 | disposition home or self-care (01) ==
LOC: ER 10:51
DX: B02.9 Zoster without complications (principal); Z72.0 Tobacco use
CPT/HCPCS: 85025; 36415; 80053; 99285; J0133

== ENCOUNTER 2023-08-13 17:40 | Inpatient (IN) | payer OTHER ==
--- OUTSIDE RECORDS SUMMARY | 2023-08-13 17:44 | XMS REPORT | Clinical Summary ---
Author Name Unknown Organization [facility] Address [address] [place] [address] Care Team Providers Care Assistant Basketball Coach Name Role Phone Carl Jones MD Unavailable Henrique Plasencia MD Primary Care Provider [phone] Kang Piedra MD Unavailable [phone] Mary Beth Hinson [facility] Unavailable Berta Clay Fraser MD Unavailable [phone] Kang Monreal MD Unavailable [phone] Patrick Huerta MD Unavailable [phone] Allergies No known active allergies Medications Medication Sig Dispensed Refills Start Date End Date Status lancets miscIndications:Ty pe 2 diabetes mellitus with hyperglycemia 1 each by miscellaneous route twice daily. 60 each 11 10/06/2020 Active buprenorphine-nalo xone (SUBOXONE) 2 mg-0.5 mg sublingual tabletIndications: Opioid use disorder, mild, in sustained remission Place 2 tablets under the tongue 3 (three) times a day. 60 tablet 0 01/17/2021 Active multivitamin tab tabletIndications: Aspiration into lower respiratory tract Take 1 tablet by mouth daily. 30 tablet 0 01/19/2021 Active budesonide (PULMICORT) 0.25 mg/2 mL nebulizer solutionIndication s:severe chronic obstructive pulmonary disease Inhale 0.25 mg by nebulization daily. 0 Active umeclidinium-vilan teroL 62.5-25 mcg/actuation dsdv Inhale by mouth. 0 Active loperamide (IMODIUM) 2 mg capsuleIndications :Aspiration into lower respiratory tract Take 1 capsule (2 mg) by mouth every 8 (eight) hours as needed for diarrhea. Buy over the counter 0 02/27/2021 Active Additional Information Patient not taking.Reason: No longer taking, Reported on 09/13/2022 megestrol (MEGACE) 40 mg/mL suspension Give 400 mg per G-tube. 0 Active baclofen (LIORESAL) 10 mg tabletIndications: Muscle spasm of back Take 1 tablet (10 mg) by mouth every 12 (twelve) hours as needed for muscle spasms. 60 tablet 0 05/17/2021 Active Additional Information Patient not taking.Reason: No longer taking, Reported on 06/07/2022 pantoprazole (PROTONIX) 40 mg EC tabletIndications: Aspiration into lower respiratory tract TAKE 1 TABLET(40 MG) BY MOUTH DAILY 30 tablet 6 07/27/2021 Active memantine (NAMENDA) 10 mg tabletIndications: Small cell carcinoma, NOS of upper lobe, lung <Right> TAKE 1 TABLET(10 MG) BY MOUTH TWICE DAILY 60 tablet 0 08/13/2021 Active acetaminophen-code ine (TYLENOL #3) 300 mg-30 mg tabletIndications: Neoplasm related pain (acute) (chronic) Take 1 tablet by mouth every 6 (six) hours as needed for mild pain or moderate pain (Marj Garza APN). 30 tablet 0 09/07/2021 Active Additional Information Patient not taking.Reason: Not available, Reported on 01/22/2023 ipratropium-albute rol (DUO-NEB) 0.5 mg-2.5 mg/3 mL nebulizer solutionIndication s:Pneumocystosis pneumonia Inhale 1 vial (3 mL) by nebulization every 6 (six) hours as needed for wheezing or shortness of breath. 270 mL 1 10/24/2021 Active Additional Information Patient not taking.Reason: No longer taking, Reported on 09/13/2022 aluminum-magnesium hydroxide-simethic one (MAALOX PLUS) 200 mg-200 mg-20 mg/5 mL suspensionIndicati ons:Gastroesophage al reflux disease Take 15 mL by mouth every 4 (four) hours as needed for indigestion or heartburn. 0 10/24/2021 Active Additional Information Patient not taking.Reason: No longer taking, Reported on 06/07/2022 guaiFENesin (MUCINEX) 600 mg 12 hr tabletIndications: Pneumonia due to other Gram-negative bacteria Take 1 tablet (600 mg) by mouth every 12 (twelve) hours. 14 tablet 0 10/24/2021 Active Additional Information Patient not taking.Reason: No longer taking, Reported on 09/13/2022 sucralfate (CARAFATE) 100 mg/mL suspensionIndicati ons:Gastroesophage al reflux disease Take 10 mL (1,000 mg) by mouth 4 (four) times a day before meals and nightly. 420 mL 0 10/24/2021 Active Additional Information Patient not taking.Reason: No longer taking, Reported on 09/13/2022 QUEtiapine (SEROquel) 25 mg tabletIndications: Adjustment disorder with mixed anxiety and depressed mood Take 3 tablets (75 mg) by mouth at bedtime. 90 tablet 0 10/24/2021 Active Ventolin HFA 90 mcg/actuation inhalerIndications :Pneumonia due to other Gram-negative bacteria Inhale 1 puff by mouth every 6 (six) hours as needed for wheezing or shortness of breath. 8 g 0 10/24/2021 Active Additional Information Patient not taking.Reason: No longer taking, Reported on 06/07/2022 levoFLOXacin (Levaquin) 500 mg tabletIndications: Upper respiratory infection, not otherwise specified Take 1 tablet (500 mg) by mouth daily. 7 tablet 0 11/02/2021 Active amoxicillin-clavul anate (Augmentin) 875 mg-125 mg per tabletIndications: Upper respiratory infection, not otherwise specified Take 1 tablet (875 mg) by mouth twice daily. 14 tablet 0 11/13/2021 Active Additional Information Patient not taking.Reason: No longer taking, Reported on 06/07/2022 QUEtiapine (SEROquel) 25 mg tabletIndications: Anxiety disorder due to a general medical condition Take 1 tablet (25 mg) by mouth every 6 (six) hours as needed for non-violent agitation (anxiety sleep). 60 tablet 0 12/28/2021 Active Additional Information Patient not taking.Reason: No longer taking, Reported on 09/13/2022 midodrine (PROAMATINE) 5 mg tablet Take 1 tablet (5 mg) by mouth twice daily. 0 05/13/2022 Active amitriptyline (ELAVIL) 25 mg tablet AT BEDTIME 0 12/23/2022 Active Advair Diskus 250-50 mcg/dose diskus inhaler as needed. 0 12/05/2022 Active Eliquis 5 mg tabletIndications: Small cell carcinoma, NOS of upper lobe, lung <Right> Take 1 tablet (5 mg) by mouth every 12 (twelve) hours. 60 tablet 5 01/22/2023 Active acetaminophen-code ine (Tylenol-Codeine #3) 300 mg-30 mg tabletIndications: Small cell carcinoma, NOS of upper lobe, lung <Right> Take 1 tablet by mouth 3 (three) times a day as needed for moderate pain. 90 tablet 0 01/22/2023 Active amoxicillin-clavul anate (Augmentin) 875 mg-125 mg per tabletIndications: Upper respiratory infection, not otherwise specified Take 1 tablet (875 mg) by mouth twice daily. 20 tablet 0 06/27/2023 Active atorvastatin (LIPITOR) 40 mg tablet Take 40 mg by mouth daily. 0 3 Discontinu ed(Not Applicable ) nystatin (MYCOSTATIN) 100,000 units/mL suspension Take 5 mL (500,000 Units) by mouth every 8 (eight) hours. 0 05/02/2022 3 Discontinu ed(Not Applicable ) Eliquis 5 mg tablet Take 1 tablet (5 mg) by mouth twice daily. 0 09/02/2022 3 Discontinu ed(Reorder ) Active Problems Problem Noted Date Diagnosed Date Anemia in malignant neoplastic disease 2 Swallowing painful 10/15/2021 Overview: Added automatically from request for surgery [id number] Community acquired pneumonia 09/03/2021 Small cell carcinoma of lung 05/17/2021 Overview: Added automatically from request for surgery [id number] Family education about pain management 1 History of radiation therapy 02/16/2021 Pressure-induced deep tissue damage of other sit e 01/05/2021 Overview: Site: Coccyx Sepsis 01/04/2021 Pulmonary embolism 11/17/2020 Stage 1 pressure ulcer of other site 11/14/2020 Overview: Left 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 Tube feeding diet 10/21/2020 Pneumonia due to other Gram-negative bacteria Sequelae of hyperalimentation 10/08/2020 Adverse effect of glucocorticoids and synthetic analogues 09/19/2020 Current use of insulin 09/19/2020 Anxiety disorder due to a general medical condit ion 09/13/2020 Disorder of fluid AND/OR electrolyte 09/04/2020 Sinus tachycardia 09/04/2020 Pleuritic pain 08/25/2020 Anemia of chronic disease 08/21/2020 Acute and chronic respiratory failure with hypox ia 08/21/2020 Failure to thrive 08/21/2020 Other severe protein-calorie malnutrition 2020 Dyspnea 08/10/2020 Decompensated COPD with acute exacerbation 07/30 shelter current use of opiate analgesic 2020 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 Hernandez. Will refer patient to thoracic medical oncology and will allow them to determine whether repeat biopsy is indicated and determine further course of treatment. Discussed with patient and patient is in agreement. Patient will be placed on pending status. Other emphysema Adjustment disorder with mixed anxiety and depre ssed mood Chronic pain due to malignant neoplastic disease Slow transit constipation Other psychological or physi tracy stress, not elsewhere classified Personal history of COVID-19 Encounters Date Type Department Care Team Description 06/27/2023 3:00 PM TRAIL MAINTENANCE WORKER [facility] [address] [facility] Main [facility], 9th [place] [address] Henrique Plasencia MD Upper respiratory infection, not otherwise specified (Primary Dx); Small cell carcinoma, NOS of upper lobe, lung <Right> 06/27/2023 8:51 AM TRAIL MAINTENANCE WORKER - 06/27/2023 11:59 PM TRAIL MAINTENANCE WORKER Hospital Encounter Main CT IMAGING [address] [facility] Main dg, 3rd [place] [address] Stella Clark APRN Small cell carcinoma, NOS of upper lobe, lung <Right> Discharge Disposition: Home 06/27/2023 8:14 AM TRAIL MAINTENANCE WORKER - 06/27/2023 8:50 AM TRAIL MAINTENANCE WORKER Hospital Encounter [facility] [address]g, [place] [address] Stella Clark APRN Small cell carcinoma, NOS of upper lobe, lung <Right> Discharge Disposition: Home 06/27/2023 Travel 06/27/2023 Orders Only [facility] [address] Bldg, 9th [place] [address] Stella Clark APRN 06/16/2023 Orders Only [facility] [address] Bldg, 9th [place] [address] Stella Clark APRN Small cell carcinoma, NOS of upper lobe, lung <Right> (Primary Dx) 04/22/2023 Orders Only [facility] [address] Bldg, 9th [place] [address] Stella Clark APRN Small cell carcinoma, NOS of upper lobe, lung <Right> (Primary Dx) 03/31/2023 2:00 PM CDT Telemedicine [facility] [address] Bldg, 9th [place] [address] Stella Clark APRN 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 03/28/2023 Orders Only [facility] [address] Bldg, 9th [place] [address] Henrique Plasencia MD 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 (Primary Dx) 03/26/2023 Telephone [facility] [address] Main Bldg, 9th [place] [address] Lisa Acevedo RN 03/17/2023 10:00 AM CDT Telemedicine [facility] [address] [place] [address] Main Bldg, 9th [place] [address] Stella Clark APRN Small cell carcinoma, NOS of upper lobe, lung <Right> 03/16/2023 Orders Only [facility] [address] [place] [address] Main [facility], 9th [place] [address] Stella Clark APRN 03/10/2023 Orders Only [facility] [address] [place] [address] Main Bldg, 9th [place] [address] Stella Clark APRN Small cell carcinoma, NOS of upper lobe, lung <Right> (Primary Dx) 03/06/2023 Orders Only [facility] [address] [place] [address] Main [facility], 9th [place] [address] Stella Clark APRN Small cell carcinoma, NOS of upper lobe, lung <Right> (Primary Dx) 03/06/2023 Nurse Triage [facility] PHYSIC[facility] [address] [place] [id number] Aletha Peña, EARLY CHILDHOOD TEACHER ASSISTANT 01/22/2023 4:00 PM CDT Follow-Up [facility] [address] [place] [address] Main [facility], 9th [place] [address] Henrique Plasencia MD Small cell carcinoma, NOS of upper lobe, lung <Right> 01/22/2023 9:13 AM CDT - 01/22/2023 11:59 PM CDT Hospital Encounter [facility] [address] [place] [address] Main [facility], [place] [address] Grey Campbell PA Small cell carcinoma, NOS of upper lobe, lung <Right> Discharge Disposition: Home 01/22/2023 8:25 AM CDT - 01/22/2023 9:12 AM CDT Hospital Encounter Main CT IMAGING [address] [place] [address] Main dg, 3rd [place] [address] Grey Campbell PA Small cell carcinoma, NOS of upper lobe, lung <Right> Discharge Disposition: Home 01/22/2023 Travel 01/08/2023 Telephone [facility] [address] Main Bldg, 9th [place] [address] Daisy Shaffer, RN 12/25/2022 Telephone [facility] [address] Main Bldg, 9th [place] [address] Enriqueta Gonzalez, RN 12/24/2022 Telephone [facility] [address] Main Bldg, 9th [place] [address] Lisa Acevedo RN 12/20/2022 Telephone [facility] [address] Main Bldg, 9th [place] [address] Zulema Cedillo, EARLY CHILDHOOD TEACHER ASSISTANT 12/14/2022 Documentation [facility] [address] Main Bldg, 9th [place] [address] Henrique Plasencia MD 12/13/2022 Orders Only [facility] [address] Main Bldg, 9th [place] [address] Grey Campbell PA Small cell carcinoma, NOS of upper lobe, lung <Right> (Primary Dx) 11/19/2022 Orders Only [facility] [address] Main Bldg, 9th [place] [address] Alex Amor, Brittany 09/13/2022 11:30 AM CDT [facility]-Up [facility] [address] Main Bldg, 9th [place] [address] Henrique Plasencia MD Small cell carcinoma, NOS of upper lobe, lung <Right> 09/13/2022 8:35 AM CDT Ancillary Procedure CT Imaging [address] [facility], 7th [place] [address] Stella Clark APRN Small cell carcinoma, NOS of upper lobe, lung <Right> 09/13/2022 7:30 AM CDT - 09/13/2022 11:59 PM CDT Hospital Encounter [facility] [address] [place] [address] Henrique Plasencia MD Small cell carcinoma, NOS of upper lobe, lung <Right> Discharge Disposition: Home 09/13/2022 Orders Only [facility] [address] [place] [address], 9th [place] [address] Stella Clark APRN Small cell carcinoma, NOS of upper lobe, lung <Right> (Primary Dx) 09/13/2022 Travel 09/05/2022 Orders Only [facility] [address] [place] [address], 9th [place] [address] Stella Clark APRN Small cell carcinoma, NOS of upper lobe, lung <Right> (Primary Dx) 08/29/2022 Telephone [facility] [address] [place] [address], 9th [place] [address] Liz Akhtar, RN Shortness of Breath (/) after 08/13/2022 Immunizations Name Administration Dates Next Due Bamlanivimab 07/29/2020() Influenza Split High Dose Pr eservative Free IM 03/29/2020 Pneumococcal Polysaccharide 03/24/2022 Zoster Recombinant 03/29/2020 remdesivir 08/22/2020,,08/21/2020,08/20,08/19/2020,08/18/2020,08/03/2020 ,08/02/2020,08/02/2020,08/01/2020,02/0 06/2020,07/30/2020 Surgical History Surgery Date Site/Laterality Comments TN EGD BALLOON DILATION ESOPHAGUS <30 MM DIAM 09/29/2020 Esophagus/N/A Procedure: UPPER GASTROINTESTINAL ENDOSCOPY WITH BALLOON DILATION OF ESOPHAGUS; Surgeon: Owen Leonard MD; Location: MAIN ENDOSCOPY; Service: GASTROENTEROLOGY TN EGD PERCUTANEOUS PLACEMENT GASTROSTOMY TUBE 09/29/2020 Abdomen/N/A Procedure: UPPER GASTROINTESTINAL ENDOSCOPY WITH DIRECTED PLACEMENT OF PERCUTANEOUS (PEG) GASTROSTOMY TUBE; Surgeon: Owen Leonard MD; Location: MAIN ENDOSCOPY; Service: GASTROENTEROLOGY TN BRNCHSC W/BRNCL ALVEOLAR LAVAGE 10/23/2020 N/A Procedure: FLEXIBLE BRONCHOSCOPY WITH BRONCHIAL ALVEOLAR LAVAGE; Surgeon: Krys Brewer MD; Location: MAIN PULM PROC; Service: PULMONARY TN PERQ REPLACEMENT GTUBE NOT REQ REVJ GSTRST TRC 05/21/2021 N/A Procedure: REPLACEMENT OF GASTROSTOMY TUBE, PERCUTANEOUS, INCLUDES REMOVAL, WHEN PERFORMED, WITHOUT IMAGING OR ENDOSCOPIC GUIDANCE; NOT REQUIRING REVISION OF GASTROSTOMY TRACT; Surgeon: Neha Tobin MD; Location: MAIN ENDOSCOPY; Service: GASTROENTEROLOGY TN EGD TRANSORAL BIOPSY SINGLE/MULTIPLE 10/19/2021 Esophagus/N/A Procedure: UPPER GASTROINTESTINAL ENDOSCOPY OF ESOPHAGUS, STOMACH, AND DUODENUM WITH BIOPSY; Surgeon: Edwige Leonard MD; Location: MAIN ENDOSCOPY; Service: GASTROENTEROLOGY Medical History Medical History Date Comments Emphysema Basal cell carcinoma of skin 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 04/21/2020 Chronic alcoholism in remission Opioid abuse, in remission 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 09/19/2020 Other pulmonary embolism without acute cor pulmo nale on eliquis Family History Medical History Relation Name Comments Emphysema Maternal Grandfather Lung cancer Sister Relation Name Status Comments Maternal Grandfather Sister Social History Tobacco Use Types Packs/Day Years Used Date Smoking Tobacco: Former Cigarettes 1.5 1 970 - 2019 Smokeless Tobacco: Never Tobacco Cessation:Counseling Given: Not Answered Alcohol Use Standard Drinks/Week Comments Not Currently 0 (1 standard drink = 0.6 oz pure alcohol) .5 gallon of vodka daily 15 years ago Sex and Gender Information Value Date Recorded Sex Assigned at Not on file Gender Identity Male 03/02/2020 6:14 PM CDT Sexual Orientation Straight 03/02/2020 6: 14 PM CDT Job Start Date Occupation Industry Not on file Not on file Not on file Obstetrics History Last Filed Vital Signs Vital Sign Reading Time Taken Comments Blood Pressure 114/76 06/27/2023 1:02 PM TRAIL MAINTENANCE WORKER Pulse 85 06/27/2023 1:02 PM TRAIL MAINTENANCE WORKER Temperature 36.4 C (97.5 F) 06/27/2023 1:02 PM CS T Respiratory Rate 22 06/27/2023 1:02 PM TRAIL MAINTENANCE WORKER Oxygen Saturation 92% 06/27/2023 1:02 PM TRAIL MAINTENANCE WORKER Inhaled Oxygen Concentration - - Weight 45.7 kg (100 lb 12 oz) 06/27/2023 1:02 PM TRAIL MAINTENANCE WORKER Height - - Body Mass Index 17.2 06/07/2022 7:11 AM TRAIL MAINTENANCE WORKER Plan of Treatment Upcoming Encounters Date Type Department Care Team Description 11/14/2023 8:30 AM CDT Appointment [facility] [address] [place] [address], [place] [address] Stella Clark, SHANNEN [address] [place] [address] 11/14/2023 9:30 AM CDT Appointment Main CT IMAGING [address] [place] [address], 3rd [place] [address] Stella Clark, EARLY CHILDHOOD TEACHER ASSISTANT [address] [place] [address] 11/14/2023 3:00 PM CDT [facility]Up [facility] [address] [place] [address], 9th [place] [address] Henrique Plasencia MD [address] [place] [id number] Health Maintenance Due Date Last Done Comments COVID-19 Vaccination (#1) 11/23/1960 Procedures Procedure Name Priority Date/Time Associated Diagnosis Comments CT CHEST W CONTRAST Routine 06/27/2023 1 0:49 AM TRAIL MAINTENANCE WORKER Small cell carcinoma, NOS of upper lobe, lung <Right> .CBC Routine 06/27/2023 8:34 AM TRAIL MAINTENANCE WORKER Small cell carcinoma, NOS of upper lobe, lung <Right> URIC ACID Routine 06/27/2023 8:34 AM TRAIL MAINTENANCE WORKER Small cell carcinoma, NOS of upper lobe, lung <Right> MAGNESIUM LEVEL Routine 06/27/2023 8:34 AM TRAIL MAINTENANCE WORKER Small cell carcinoma, NOS of upper lobe, lung <Right> COMPREHENSIVE METABOLIC PANEL Routine 06/27/2023 8:34 AM TRAIL MAINTENANCE WORKER Small cell carcinoma, NOS of upper lobe, lung <Right> COMPLETE BLOOD COUNT W/ DIFFERENTIAL Routine 06/27/2023 8:34 AM TRAIL MAINTENANCE WORKER Small cell carcinoma, NOS of upper lobe, lung <Right> CT CHEST W CONTRAST Routine 01/22/2023 1 0:49 AM CDT Small cell carcinoma, NOS of upper lobe, lung <Right> FRACTIONATED BILIRUBIN Routine 9:24 AM CDT Small cell carcinoma, NOS of upper lobe, lung <Right> TOTAL PROTEIN Routine 01/22/2023 9:24 AM CDT Small cell carcinoma, NOS of upper lobe, lung <Right> ASPARTATE AMINOTRANSFERASE Routine 01/22/2023 9:24 AM CDT Small cell carcinoma, NOS of upper lobe, lung <Right> ALANINE AMINOTRANSFERASE Routine 023 9:24 AM CDT Small cell carcinoma, NOS of upper lobe, lung <Right> ALKALINE PHOSPHATASE Routine 01/22/2023 9:24 AM CDT Small cell carcinoma, NOS of upper lobe, lung <Right> ALBUMIN LEVEL Routine 01/22/2023 9:24 AM CDT Small cell carcinoma, NOS of upper lobe, lung <Right> CALCIUM LEVEL Routine 01/22/2023 9:24 AM CDT Small cell carcinoma, NOS of upper lobe, lung <Right> .GLOMERULAR FILTRATION RATE Routine 01/22/2023 9:24 AM CDT Small cell carcinoma, NOS of upper lobe, lung <Right> SERUM CREATININE Routine 01/22/2023 9:24 AM CDT Small cell carcinoma, NOS of upper lobe, lung <Right> ELECTROLYTE PANEL Routine 01/22/2023 9:2 4 AM CDT Small cell carcinoma, NOS of upper lobe, lung <Right> BLOOD UREA NITROGEN Routine 01/22/2023 9 :24 AM CDT Small cell carcinoma, NOS of upper lobe, lung <Right> GLUCOSE LEVEL Routine 01/22/2023 9:24 AM CDT Small cell carcinoma, NOS of upper lobe, lung <Right> DIFFERENTIAL Routine 01/22/2023 9:24 AM CDT Small cell carcinoma, NOS of upper lobe, lung <Right> .CBC Routine 01/22/2023 9:24 AM CDT Small cell carcinoma, NOS of upper lobe, lung <Right> COMPREHENSIVE METABOLIC PANEL Routine 01/22/2023 9:24 AM CDT Small cell carcinoma, NOS of upper lobe, lung <Right> COMPLETE BLOOD COUNT W/ DIFFERENTIAL Routine 01/22/2023 9:24 AM CDT Small cell carcinoma, NOS of upper lobe, lung <Right> POC CREATININE Routine 01/22/2023 9:[address] CHEST W CONTRAST Routine 09/13/2022 8 :57 AM CDT Small cell carcinoma, NOS of upper lobe, lung <Right> POC CREATININE Routine 09/13/2022 8:38 AM CDT FRACTIONATED BILIRUBIN Routine 8:10 AM CDT Small cell carcinoma, NOS of upper lobe, lung <Right> TOTAL PROTEIN Routine 09/13/2022 8:10 AM CDT Small cell carcinoma, NOS of upper lobe, lung <Right> ASPARTATE AMINOTRANSFERASE Routine 09/13/2022 8:10 AM CDT Small cell carcinoma, NOS of upper lobe, lung <Right> ALANINE AMINOTRANSFERASE Routine 8:10 AM CDT Small cell carcinoma, NOS of upper lobe, lung <Right> ALKALINE PHOSPHATASE Routine 09/13/2022 8:10 AM CDT Small cell carcinoma, NOS of upper lobe, lung <Right> ALBUMIN LEVEL Routine 09/13/2022 8:10 AM CDT Small cell carcinoma, NOS of upper lobe, lung <Right> CALCIUM LEVEL Routine 09/13/2022 8:10 AM CDT Small cell carcinoma, NOS of upper lobe, lung <Right> .GLOMERULAR FILTRATION RATE Routine 09/13/2022 8:10 AM CDT Small cell carcinoma, NOS of upper lobe, lung <Right> SERUM CREATININE Routine 09/13/2022 8:10 AM CDT Small cell carcinoma, NOS of upper lobe, lung <Right> ELECTROLYTE PANEL Routine 09/13/2022 8:1 0 AM CDT Small cell carcinoma, NOS of upper lobe, lung <Right> BLOOD UREA NITROGEN Routine 09/13/2022 8 :10 AM CDT Small cell carcinoma, NOS of upper lobe, lung <Right> GLUCOSE LEVEL Routine 09/13/2022 8:10 AM CDT Small cell carcinoma, NOS of upper lobe, lung <Right> DIFFERENTIAL Routine 09/13/2022 8:10 AM CDT Small cell carcinoma, NOS of upper lobe, lung <Right> .CBC Routine 09/13/2022 8:10 AM CDT Small cell carcinoma, NOS of upper lobe, lung <Right> COMPREHENSIVE METABOLIC PANEL Routine 09/13/2022 8:10 AM CDT Small cell carcinoma, NOS of upper lobe, lung <Right> COMPLETE BLOOD COUNT W/ DIFFERENTIAL Routine 09/13/2022 8:10 AM CDT Small cell carcinoma, NOS of upper lobe, lung <Right> after 08/13/2022 Results * CT Chest with Contrast (06/27/2023 10:49 AM TRAIL MAINTENANCE WORKER) Only the most recent of3 resultswithin the time period is included. Anatomical Region Laterality Modality Chest Computed Tomogra phy 06/27/2023 10:5 0 AM TRAIL MAINTENANCE WORKER Impressions 06/27/2023 2:56 PM TRAIL MAINTENANCE WORKER Dense consolidative opacity/post radiation change periphery right upper lobe, stable. Interval nodular/consolidative opacities in the left lower lobe, likely representing infectious process. Attention CT follow-up. The remaining nodular opacities in the lungs are unchanged and nonspecific. Attention CT follow up. There is improvement in the small left pleural effusion, currently seen as trace pleural fluid. ACTIONABLE ITEMS/RECOMMENDATIONS: See Impression. I personally reviewed these image(s) along with the resident's/fellow's interpretations, certify that if a procedure was performed I was physically present, and agree with the final report. Narrative 06/27/2023 2:56 PM TRAIL MAINTENANCE WORKER FULL RESULT: Examination: CT CHEST W CONTRAST on 06/27/2023 10:49 AM. Clinical History: Small cell carcinoma of the upper lobe of the right lung status post chemotherapy and radiation completed 12/26/2020. Indication: Follow-up. Comparison: CT chest dated 01/22/2023 and 11/20/2020. Technique: CT of the chest is performed with intravenous contrast Findings: Lungs/Airways/Pleura: * Extensive emphysematous changes are noted in the lungs. * A dense consolidative opacity in the periphery of the right upper lobe, consistent with post-radiation changes, is identified. There is a stable central area of cavitation. * The stable dense opacity in the right apex on image 19 has persisted since at least 11/20/2020. This finding may represent scarring from a prior infection. * The subpleural opacities in the left upper lobe, which were present on the prior study, have now resolved. * There is a new interval appearance of consolidative opacities in the left lower lobe, circled in series 3. * There is an interval improvement in the atelectatic changes of the lingula. * The remaining smaller nodular opacities in the bilateral lungs, annotated in series 3, are unchanged and nonspecific. * There is improvement in the small left pleural effusion, currently seen as trace pleural fluid. Neck/Mediastinum/Nodes/Heart: There is an interval decrease in the size of a right supraclavicular lymph node (3 mm, image 18), previously measured at 5 mm. Additionally, there is an interval decrease in the size of the right upper paratracheal lymph node (6 mm, image 23), previously measured at 9 mm. However, another right upper paratracheal lymph node (9 mm, image 40) remains unchanged. A few other subcentimeter mediastinal lymph nodes are stable. Cardiac size is normal. Mild coronary artery calcifications. No pericardial effusion. Upper abdomen: Postcholecystectomy status is noted. Minimal pneumobilia is observed, likely related to a prior ERCP/biliary stent. Small hiatal hernia. Mild wall thickening distal esophagus may be related to reflux and/or esophagitis. Bones/Soft Tissues: Mild degenerative changes in the spine. No aggressive osseous lesions. Procedure Note Lanre Galdamez MD - 06/27/2023 FULL RESULT: Examination: CT CHEST W CONTRAST on 06/27/2023 10:49 AM. 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 Indication: Follow-up. Comparison: CT chest dated 01/22/2023 and 11/20/2020. Technique: CT of the chest is performed with intravenous contrast Findings: Lungs/Airways/Pleura: * Extensive emphysematous changes are noted in the lungs. * A dense consolidative opacity in the periphery of the right upper lobe,consistent with post-radiation changes, is identified. There is a stablecentral area of cavitation. * The stable dense opacity in the right apex on image 19 has persistedsince at least 11/20/2020. This finding may represent scarring from aprior infection. * The subpleural opacities in the left upper lobe, which were present onthe prior study, have now resolved. * There is a new interval appearance of consolidative opacities in theleft lower lobe, circled in series 3. * There is an interval improvement in the atelectatic changes of thelingula. * The remaining smaller nodular opacities in the bilateral lungs,annotated in series 3, are unchanged and nonspecific. * There is improvement in the small left pleural effusion, currently seenas trace pleural fluid. Neck/Mediastinum/Nodes/Heart: There is an interval decrease in the size ofa right supraclavicular lymph node (3 mm, image 18), previously measuredat 5 mm. Additionally, there is an interval decrease in the size of theright upper paratracheal lymph node (6 mm, image 23), previously measuredat 9 mm. However, another right upper paratracheal lymph node (9 mm, image40) remains unchanged. A few other subcentimeter mediastinal lymph nodesare stable. Cardiac size is normal. Mild coronary artery calcifications.No pericardial effusion. Upper abdomen: Postcholecystectomy status is noted. Minimal pneumobilia isobserved, likely related to a prior ERCP/biliary stent. Small hiatalhernia. Mild wall thickening distal esophagus may be related to refluxand/or esophagitis. Bones/Soft Tissues: Mild degenerative changes in the spine. No aggressiveosseous lesions. IMPRESSION: Dense consolidative opacity/post radiation change periphery right upperlobe, stable. Interval nodular/consolidative opacities in the left lower lobe, likelyrepresenting infectious process. Attention CT follow-up. The remaining nodular opacities in the lungs are unchanged andnonspecific. Attention CT follow up. There is improvement in the small left pleural effusion, currently seenas trace pleural fluid. ACTIONABLE ITEMS/RECOMMENDATIONS: See Impression. I personally reviewed these image(s) along with the resident's/fellow'sinterpretations, certify that if a procedure was performed I wasphysically present, and agree with the final report. Stella Clark APRN [facility] CT ORDERABLES * (ABNORMAL) .CBC (06/27/2023 8:34 AM TRAIL MAINTENANCE WORKER) Only the most recent of3 resultswithin the time period is included. White Blood Cell 9.1 4.1 - 10.5 K/uL 06/27/2023 8:44 AM [facility] Red Blood Cell 3.67(L) 4.30 - 6.04 M/uL 06/27/2023 8:44 AM [facility] Hemoglobin 11.0(L) 13.3 - 17.4 g/dL 06/27/2023 8:44 AM [facility] Hematocrit 34.4(L) 39.5 - 51.8 % 06/27/2023 8:44 AM [facility] Mean Cell Volume 94 82 - 99 fL 06/27/2023 8:44 AM [facility] Mean Cell Hemoglobin 30.0 26.6 - 33.2 pg 06/27/2023 8:44 AM [facility] Mean Cell Hemoglobin Concentration 32.0 31.1 - 35.2 g/dL 06/27/2023 8:44 AM [facility] RDW-SD 52.8(H) 37.5 - 49.7 fL 06/27/2023 8:44 AM [facility] Red Cell Diameter Width 15.1 11.6 - 15.5 % 06/27/2023 8:44 AM [facility] Platelet 314 160 - 397 K/uL 06/27/2023 8:44 AM [facility] Mean Platelet Volume 8.8(L) 9.1 - 12.6 fL 06/27/2023 8:44 AM [facility] INRBC 0.0 0.0 - 0.1 /100 WBC 06/27/2023 8:44 AM [facility] Comment: The INRBC (instrument NRBC) value reflects the enumeration of nucleated red blood cells contained in a 200uL sample of whole blood analyzed by the instrument. This value may differ from the NRBC value reported in a manual differential, which is based on a 100 cell differential. Neutrophil % 82.1(H) 43.2 - 72.7 % 06/27/2023 8:44 AM [facility] Lymphocyte % 9.7(L) 16.8 - 46.2 % 06/27/2023 8:44 AM [facility] Monocyte % 6.8 5.1 - 12.5 % 06/27/2023 8:44 AM [facility] Eosinophil % 0.9 0.4 - 6.3 % 06/27/2023 8:44 AM [facility] Basophil % 0.2 0.2 - 1.4 % 06/27/2023 8:44 AM [facility] IGRE % 0.3 0.1 - 1.5 % 06/27/2023 8:44 AM [facility] Comment:The IGRE% includes M etamyelocytes, Myelocytes and Promyelocytes. Neutrophil Abs 7.45(H) 1.95 - 7.25 K/uL 06/27/2023 8:44 AM [facility] Lymphocyte Abs 0.88(L) 1.01 - 3.24 K/uL 06/27/2023 8:44 AM [facility] Monocyte Abs 0.62 0.24 - 0.85 K/uL 06/27/2023 8:44 AM [facility] Eosinophil Abs 0.08 0.02 - 0.50 K/uL 06/27/2023 8:44 AM [facility] Basophil Abs 0.02 0.02 - 0.09 K/uL 06/27/2023 8:44 AM [facility] IG Abs 0.03 0.01 - 0.12 K/uL 06/27/2023 8:44 AM [facility] Blood Peripheral blood specimen / Unknown Venipuncture / Unknown 06/27/2023 8:34 AM TRAIL MAINTENANCE WORKER 06/27/2023 8:36 AM [facility] Stella Clark EARLY CHILDHOOD TEACHER ASSISTANT LAB BLOOD ORDERABL ES [facility] Unless otherwise noted, all lab tests performed by: Division of Pathology and Laboratory Medicine [address] [place] [phone] * (ABNORMAL) Comprehensive Metabolic Panel (06/27/2023 8:34 AM [facility]) Bilirubin Total <0.3 <=1.2 mg/dL 06/27/2023 9:14 AM [facility] Comment: Direct and indirect bilirubin will not be reported when Total bilirubin result is <0.3 mg/dL Indocyanine Green (ICG) may cause falsely elevated bilirubin results. Total and direct bilirubin must not be measured from samples containing indocyanine green. False elevation of total bilirubin can be seen in patients with IgG concentrations above 28 g/L. This result was previously suppressed from the chart. Bilirubin Direct 06/27/20 9:14 AM [facility] Comment: Direct and indirect bilirubin will not be reported when Total bilirubin result is <0.3 mg/dL Indocyanine Green (ICG) may cause falsely elevated bilirubin results. Total and direct bilirubin must not be measured from samples containing indocyanine green. Bilirubin Indirect 2022 9:14 AM [facility] Comment:Direct and indirect bilirubin will not be reported when Total bilirubin result is <0.3 mg/dL eGFR 108 >=60 mL/min/1. 73 sq. m 06/27/2023 9:14 AM [facility] Comment: The eGFRcr is calculated with the 2020 CKD-EPI creatinine equation using creatinine, patient's age, and sex for adults 18 years of age and older. Other factors, especially muscle mass, may affect accuracy and need to be considered. According to the Kidney Disease: Improving Global Outcomes (KDIGO) CKD Work Group 2012 Clinical Practice Guideline, chronic kidney disease (CKD) is defined as the abnormalities of kidney structure or function, present for more than 3 months, with implications for health. CKD should be classified by cause, GFR category, and albuminuria category. KDIGO guidelines provide the following GFR categories. Stage / Description / GFR mL/min/1.73 m2: G1* / Normal or high / >= 90 G2* / Mildly decreased / 60-89 G3a / Mildly to moderately decreased / 45-59 G3b / Moderately to severely decreased / 30-44 G4 / Severely decreased / 15-29 G5 / Kidney failure / <15 *In the absence of evidence of kidney damage, neither G1 nor G2 fulfill criteria for CKD. Tot Protein 6.9 6.4 - 8.3 gm/dL 06/27/2023 9:14 AM [facility] Comment:This result was prev iously suppressed from the chart. Calcium Level Total 9.2 8.2 - 10.2 mg/dL 06/27/2023 9:14 AM [facility] Comment:This result was prev iously suppressed from the chart. Alkaline Phosphatase 108 40 - 129 U/L 06/27/2023 9:14 AM [facility] Comment:This result was prev iously suppressed from the chart. Albumin Level 3.8 3.5 - 5.2 gm/dL 06/27/2023 9:14 AM [facility] Comment:This result was prev iously suppressed from the chart. AST 13 <=40 U/L 06/27/2023 9:14 AM [facility] Comment:This result was prev iously suppressed from the chart. ALT 7 <=41 U/L 06/27/2023 9:14 AM [facility] Comment:This result was prev iously suppressed from the chart. Sodium Level 138 136 - 145 mmol/L 06/27/2023 9:14 AM [facility] Comment:This result was prev iously suppressed from the chart. Potassium Level 3.9 3.4 - 4.5 mmol/L 06/27/2023 9:14 AM [facility] Comment:This result was prev iously suppressed from the chart. Chloride 103 98 - 107 mmol/L 06/27/2023 9:14 AM [facility] Comment:This result was prev iously suppressed from the chart. CO2 29 22 - 29 mmol/L 06/27/2023 9:14 AM [facility] Comment:This result was prev iously suppressed from the chart. Anion Gap 6 4 - 14 mmol/L 06/27/2023 9:14 AM [facility] Comment:This result was prev iously suppressed from the chart. Creatinine 0.55(L) 0.67 - 1.17 mg/dL 06/27/2023 9:14 AM [facility] Comment:This result was prev iously suppressed from the chart. BUN 11 6 - 23 mg/dL 06/27/2023 9:14 AM [facility] Comment:This result was prev iously suppressed from the chart. Glucose Level 97 70 - 99 mg/dL 06/27/2023 9:14 AM [facility] Comment: Effective 01/24/16, the glucose reference intervals have been updated based on [place] [employer] guidelines (Standards of Medical Care in Diabetes 2016. Diabetes Care 2016; 39: S13-S22). Fasting blood glucose: Normal: 70-99 mg/dL Impaired fasting glucose (increased risk for diabetes or pre-diabetes): 100-125 mg/dL Diabetes mellitus: >/=126 mg/dL Random blood glucose: Normal: 70-199 mg/dL Note: Random glucose >100 mg/dL is associated with increased risk for diabetes. This result was previously suppressed from the chart. Blood Peripheral blood specimen / Unknown Venipuncture / Unknown 06/27/2023 8:34 AM TRAIL MAINTENANCE WORKER 06/27/2023 8:36 AM TRAIL MAINTENANCE WORKER Stella Clark APRN LAB BLOOD ORDERABL ES [facility] Unless otherwise noted, all lab tests performed by: Division of Pathology and Laboratory Medicine [address] [place] [phone] * (ABNORMAL) Uric Acid (06/27/2023 8:34 AM TRAIL MAINTENANCE WORKER) Uric Acid 3.0(L) 3.4 - 7.0 mg/dL 06/27/2023 9:14 AM TRAIL MAINTENANCE WORKER [facility] Blood Peripheral blood specimen / Unknown Venipuncture / Unknown 06/27/2023 8:34 AM TRAIL MAINTENANCE WORKER 06/27/2023 8:36 AM TRAIL MAINTENANCE WORKER Stella Clark APRN LAB BLOOD ORDERABL ES [facility] Unless otherwise noted, all lab tests performed by: Division of Pathology and Laboratory Medicine [address] [place] [phone] * Magnesium Level (06/27/2023 8:34 AM TRAIL MAINTENANCE WORKER) Magnesium Level 1.8 1.6 - 2.6 mg/dL 06/27/2023 9:14 AM TRAIL MAINTENANCE WORKER [facility] Blood Peripheral blood specimen / Unknown Venipuncture / Unknown 06/27/2023 8:34 AM TRAIL MAINTENANCE WORKER 06/27/2023 8:36 AM TRAIL MAINTENANCE WORKER Stella Clark APRN LAB BLOOD ORDERABL ES [facility] Unless otherwise noted, all lab tests performed by: Division of Pathology and Laboratory Medicine [address] [place] [phone] * .Serum Creatinine (01/22/2023 9:24 AM CDT) Only the most recent of2 resultswithin the time period is included. Creatinine 0.68 0.67 - 1.17 mg/dL [facility] Blood 01/22/2023 9:24 AM CDT 01/22/2023 10:28 AM CDT [facility] LAB BLOOD ORDERAB LES Performing Organization Address City/[facility]/ZIP Co de Phone Number [facility] Unless otherwise noted, all lab tests performed by: Division of Pathology and Laboratory Medicine [address] [place] [phone] * Glomerular Filtration Rate (01/22/2023 9:24 AM CDT) Only the most recent of2 resultswithin the time period is included. eGFR 101 >=60 mL/min/1.7 3 sq. m [facility] Comment: The eGFRcr is calculated with the 2020 CKD-EPI creatinine equation using creatinine, patient's age, and sex for adults 18 years of age and older. Other factors, especially muscle mass, may affect accuracy and need to be considered. According to the Kidney Disease: Improving Global Outcomes (KDIGO) CKD Work Group 2012 Clinical Practice Guideline, chronic kidney disease (CKD) is defined as the abnormalities of kidney structure or function, present for more than 3 months, with implications for health. CKD should be classified by cause, GFR category, and albuminuria category. KDIGO guidelines provide the following GFR categories Stage Description GFR mL/min/1.73 m2 G1* Normal or high >= 90 G2* Mildly decreased 60-89 G3a Mildly to moderately decreased 45-59 G3b Moderately to severely decreased 30-44 G4 Severely decreased 15-29 G5 Kidney failure <15 *In the absence of evidence of kidney damage, neither G1 nor G2 fulfill criteria for CKD. Blood 01/22/2023 9:24 AM CDT 01/22/2023 10:28 AM CDT [facility] LAB BLOOD ORDERAB LES Performing Organization Address [facility] de Phone Number [facility] Unless otherwise noted, all lab tests performed by: Division of Pathology and Laboratory Medicine [address] [place] [phone] * Fractionated Bilirubin (01/22/2023 9:24 AM CDT) Only the most recent of2 resultswithin the time period is included. [facility] Bili Total <0.3 <=1.2 mg/dL [facility] Comment: Direct and indirect bilirubin will not be reported when Total bilirubin result is <0.3 mg/dL Indocyanine Green (ICG) may cause falsely elevated bilirubin results. Total and direct bilirubin must not be measured from samples containing indocyanine green. False elevation of total bilirubin can be seen in patients with IgG concentrations above 28 g/L. Blood 01/22/2023 9:24 AM CDT 01/22/2023 10:28 AM CDT [facility] LAB BLOOD ORDERAB LES Performing Organization Address City/[facility] Co de Phone Number [facility] Unless otherwise noted, all lab tests performed by: Division of Pathology and Laboratory Medicine [address] [place] [phone] * Differential (01/22/2023 9:24 AM CDT) Only the most recent of2 resultswithin the time period is included. Pathologist [facility] Neutrophil % 65.7 43.2 - 72.7 % [facility] Lymphocyte % 24.7 16.8 - 46.2 % [facility] Monocyte % 6.7 5.1 - 12.5 % [facility] Eosinophil % 2.1 0.4 - 6.3 % [facility] Basophil % 0.5 0.2 - 1.4 % [facility] IGRE % 0.3 0.1 - 1.5 % [facility] Comment:IGRE % count include s Metamyelocytes, Myelocytes, and Promyelocytes. Neutrophil Abs 6.82 1.95 - 7.25 K/uL [facility] Lymphocyte Abs 2.56 1.01 - 3.24 K/uL [facility] Monocyte Abs 0.70 0.24 - 0.85 K/uL [facility] Eosinophil Abs 0.22 0.02 - 0.50 K/uL [facility] Basophil Abs 0.05 0.02 - 0.09 K/uL [facility] IG Abs 0.03 0.01 - 0.12 K/uL [facility] Blood 01/22/2023 9:24 AM CDT 01/22/2023 10:15 AM CDT [facility] LAB BLOOD ORDERAB LES Performing Organization Address City/[facility]/ZIP Co de Phone Number [facility] Unless otherwise noted, all lab tests performed by: Division of Pathology and Laboratory Medicine [address] [place] [phone] * BUN (01/22/2023 9:24 AM CDT) Only the most recent of2 resultswithin the time period is included. BUN 9 6 - 23 mg/dL [facility] Blood 01/22/2023 9:24 AM CDT 01/22/2023 10:28 AM CDT [facility] LAB BLOOD ORDERAB LES Performing Organization Address City/[facility] Co de Phone Number [facility] Unless otherwise noted, all lab tests performed by: Division of Pathology and Laboratory Medicine [address] [place] [phone] * ALT (01/22/2023 9:24 AM CDT) Only the most recent of2 resultswithin the time period is included. ALT <5 <=41 U/L [facility] Blood 01/22/2023 9:24 AM CDT 01/22/2023 10:28 AM CDT [facility] LAB BLOOD ORDERAB LES Performing Organization Address [facility] Co de Phone Number [facility] Unless otherwise noted, all lab tests performed by: Division of Pathology and Laboratory Medicine [address] [place] [address] [phone] * Aspartate Aminotransferase (01/22/2023 9:24 AM CDT) Only the most recent of2 resultswithin the time period is included. AST 12 <=40 U/L [facility] Blood 01/22/2023 9:24 AM CDT 01/22/2023 10:28 AM CDT [facility] LAB BLOOD ORDERAB LES Performing Organization Address [facility] Co de Phone Number [facility] Unless otherwise noted, all lab tests performed by: Division of Pathology and Laboratory Medicine [address] [place] [address] [phone] * Total Protein (01/22/2023 9:24 AM CDT) Only the most recent of2 resultswithin the time period is included. Total Protein 6.7 6.4 - 8.3 g/dL [facility] Blood 01/22/2023 9:24 AM CDT 01/22/2023 10:28 AM CDT [facility] LAB BLOOD ORDERAB LES Performing Organization Address City/[facility] Co de Phone Number [facility] Unless otherwise noted, all lab tests performed by: Division of Pathology and Laboratory Medicine [address] [place] [address] [phone] * Alkaline Phosphatase (01/22/2023 9:24 AM CDT) Only the most recent of2 resultswithin the time period is included. Alk Phos 75 40 - 129 U/L [facility] Blood 01/22/2023 9:24 AM CDT 01/22/2023 10:28 AM CDT [facility] LAB BLOOD ORDERAB LES Performing Organization Address City/[facility]/ZIP Co de Phone Number [facility] Unless otherwise noted, all lab tests performed by: Division of Pathology and Laboratory Medicine [address] [place] [address] [phone] * Glucose Level (01/22/2023 9:24 AM CDT) Only the most recent of2 resultswithin the time period is included. Glucose Level 74 70 - 99 mg/dL [facility] Comment: Effective 01/24/16, the glucose reference intervals have been updated based on [place] Diabetes [employer] guidelines (Standards of Medical Care in Diabetes 2016. Diabetes Care 2016; 39: S13-S22). Fasting blood glucose: Normal: 70-99 mg/dL Impaired fasting glucose (increased risk for diabetes or pre-diabetes): 100- 125 mg/dL Diabetes mellitus: >/=126 mg/dL Random blood glucose: Normal: 70-199 mg/dL Note: Random glucose >100 mg/dL is associated with increased risk for diabetes Blood 01/22/2023 9:24 AM CDT 01/22/2023 10:28 AM CDT [facility] LAB BLOOD ORDERAB LES Performing Organization Address [facility] de Phone Number [facility] Unless otherwise noted, all lab tests performed by: Division of Pathology and Laboratory Medicine [address] [place] [address] [phone] * Calcium Level (01/22/2023 9:24 AM CDT) Only the most recent of2 resultswithin the time period is included. Calcium Lvl 9.1 8.4 - 10.2 mg/dL [facility] Blood 01/22/2023 9:24 AM CDT 01/22/2023 10:28 AM CDT [facility] LAB BLOOD ORDERAB LES Performing Organization Address City/[facility]/ZIP Co de Phone Number [facility] Unless otherwise noted, all lab tests performed by: Division of Pathology and Laboratory Medicine [address] [place] [address] [place] [phone] * Albumin Level (01/22/2023 9:24 AM CDT) Only the most recent of2 resultswithin the time period is included. [facility] Albumin Lvl 3.8 3.5 - 5.2 gm/dL [facility] Blood 01/22/2023 9:24 AM CDT 01/22/2023 10:28 AM CDT [facility] LAB BLOOD ORDERAB LES Performing Organization Address [facility] de Phone Number [facility] [facility] Unless otherwise noted, all lab tests performed by: Division of Pathology and Laboratory Medicine [address] [place] [id number] * (ABNORMAL) Electrolyte Panel (01/22/2023 9:24 AM CDT) Only the most recent of2 resultswithin the time period is included. [facility] Sodium Lvl 136 136 - 145 mEq/L [facility] Potassium Lvl 3.5 3.5 - 5.1 mEq/L [facility] Chloride 100 98 - 107 mEq/L [facility] CO2 32(H) 22 - 29 mEq/L [facility] Anion Gap 4 4 - 14 mEq/L [facility] Blood 01/22/2023 9:24 AM CDT 01/22/2023 10:28 AM CDT [facility] BLOOD ORDERAB LES Performing Organization Address [facility] Co de Phone Number [facility] Unless otherwise noted, all lab tests performed by: Division of Pathology and Laboratory Medicine [address] [place] [phone] * (ABNORMAL) POC Creatinine (01/22/2023 9:19 AM CDT) Only the most recent of2 resultswithin the time period is included. [facility] POC Crea 0.5(L) 0.6 - 1.3 mg/dL POC [facility] Comment: Medications, especially hydroxyurea or supplements, such as ascorbate, can interfere with test results causing a falsely and significantly higher result than expected. If a problem is suspected with a patient's result, a sample should be sent to the laboratory for confirmatory testing. Method description: The i-STAT is an analyzer used for in vitro quantification of various analytes in whole blood. The device uses a single disposable cartridge which contains microfabricated sensors, a calibration solution, fluidics system, and a waste chamber. Each test cartridge contains chemically sensitive biosensors on a silicon chip that are configured to perform specific tests. The microfabricated sensors measure analyte concentration by an electrochemical assay. POC EGFR 111 >=60 mL/min/1. 73 sq. m POC [facility] Comment: The eGFRcr is calculated with the 2020 CKD-EPI creatinine equation using creatinine, patient's age, and sex for adults 18 years of age and older. Other factors, especially muscle mass, may affect accuracy and need to be considered. According to the Kidney Disease: Improving Global Outcomes (KDIGO) CKD Work Group 2012 Clinical Practice Guideline, chronic kidney disease (CKD) is defined as the abnormalities of kidney structure or function, present for more than 3 months, with implications for health. CKD should be classified by cause, GFR category, and albuminuria category. KDIGO guidelines provide the following GFR categories Stage Description GFR mL/min/1.73 m2 G1* Normal or high >= 90 G2* Mildly decreased 60-89 G3a Mildly to moderately decreased 45-59 G3b Moderately to severely decreased 30-44 G4 Severely decreased 15-29 G5 Kidney failure <15 *In the absence of evidence of kidney damage, neither G1 nor G2 fulfill criteria for CKD. POC Clean Dev Yes POC [facility] Performing Lab [facility] POC [facility] Comment:[facility], [facility], [place] [address]; Utilization Manager: Karma Arciniega MD; Waived Point of Care Testing - Rosina Parikh MD Blood 01/22/2023 9:19 AM CDT 01/22/2023 9:19 AM CDT [facility] POCT ORDERABLES - DEVICE POC [facility] Unless otherwise noted, all lab tests performed by: Division of Pathology and Laboratory Medicine [address] [place] [address] after 08/13/2022 Advance Directives Latest Code Status on File Code Status Date Activated Date Inactivated Comments Full Code 10/15/2021 2:23 PM 10/24/2021 8:32 PM Code Status History Code Status Date Activated Date Inactivated Comments Full Code 09/03/2021 10:00 PM 09/07/2021 5:51 PM Full Code 02/16/2021 11:33 PM 03/02/2021 8:45 PM Full Code 01/22/2021 1:08 AM 01/30/2021 8:41 PM Full Code 01/04/2021 3:56 PM 01/19/2021 6:53 PM Care Teams Assistant Basketball Coach Relationship Specialty Start Date End Date Carl Jones MD [address] [facility] [address] [place] [phone] PCP - External Primary Care Provider Family Practice 02/14/20 Henrique Plasencia MD [address] [place] [phone] PCP - General Thoracic Medicine 04/21/20 Kang Piedra MD [address] [place] [phone] PCP - External Follow Up C Dermatology 12/14/20 Mary Beth Hinson, [facility] [address] [place] [phone] Speech Language Pathologist Speech Pathology 04/16/21 Clay Hernandez MD [address] [place] [address] [phone] Consulting Physician Pulmonary Medicine 03/31/20 Kang Monreal MD [address] [place] [phone] Consulting Physician Hematology and Oncology 04/16/21 Patrick Huerta MD [address] [place] [address] [phone] Consulting Physician Dermatology 05/18/20
[2023-08-13] MEDS ORDERED: MAGNES/ALUMIN/SIMET 30ML UCUP ONE (18:32)
[2023-08-13] MEDS ORDERED: ONDANSETRON 4 MG/2 ML VIAL ONE (18:32)
[2023-08-13] MEDS ORDERED: NA CHLORIDE 0.9% 1,000 ML ONE ×2 (18:33→23:13)
[2023-08-13] MEDS ORDERED: FAMOTIDINE 20 MG/2 ML VIAL IV ONE (18:33)
[2023-08-13] MEDS ORDERED: PANTOPRAZOLE 40 MG INJ ONE (18:33)
[2023-08-13] MEDS ORDERED: ZIPRASIDONE MESYLA 20 MG/VIAL IM ONE ×2 (18:41→21:00)
[2023-08-13 20:18] LABS: ALT/SGPT 19 U/L (16-61); Alkaline Phosphatase 176 U/L (45-117); Bicarbonate 31 mEq/L (21-32); Bilirubin Total 0.1 mg/dL (0.2-1.0); Glomerular Filtration Rate 104 ml/min (=/>90); Glucose Level 112 mg/dL (74-106); Sodium Level 142 mEq/L (136-145)
[2023-08-13 20:19] LABS: Lipase 9 U/L (13-75)
[2023-08-13 20:23] LABS: AST/SGOT 23 U/L (15-37); BUN Blood Urea Nitrogen < 3 mg/dL (7-18)
[2023-08-13 20:46] LABS: Absolute Lymphocytes (CBC) 2.9 K/uL (0.7-4.9); Hematocrit 45.4 % (39.6-49.0); Lymphocytes % 36.7 % (15.3-44.8); MCV 90.7 fL (80-100); Platelets 339 thou/uL (152-406)
[2023-08-13] MEDS ORDERED: LIDOCAINE 1% 20 ML MDV ONE (20:53)
[2023-08-13] MEDS ORDERED: WATER FOR INJ,STERILE 10 ML ONE (21:01)
[2023-08-13 21:19] LABS: C-Reactive Protein 11.5 mg/L (<3.00); Thyroid Stimulating Hormone 0.291 uIU/mL (0.358-3.740)
--- NOTE | 2023-08-13 21:51 | RAD REPORT ---
EXAM DESCRIPTION: RAD - Chest Single View - 08/13/2023 9:45 pm CLINICAL HISTORY: Right CVL placement Chest pain. COMPARISON: Chest Single View dated 04/08/2023; Chest Single View dated 12/24/2022; Chest Single View dated 11/24/2022; Chest Single View dated 11/14/2022 FINDINGS: Portable technique limits examination quality. Right-sided venous catheter has tip in the SVC. No pneumothorax.
--- NOTE | 2023-08-13 21:59 | RAD REPORT ---
EXAM DESCRIPTION: CT - Chest Abdomen Pelvis W Cont - 08/13/2023 9:48 pm CLINICAL HISTORY: Chest and abdomen pain. ABDOMINAL DISTENTION COMPARISON: Chest For Pe Angio dated 12/24/2022; Abdomen Pelvis W Contrast dated 05/29/2023 TECHNIQUE: Approximately 100 mL nonionic IV contrast was administered to the patient. All CT scans are performed using dose optimization technique as appropriate and may include automated exposure control or mA/KV adjustment according to patient size. FINDINGS: Significant emphysema is present. Irregular cavitary scarring is seen in the right upper l obe laterally, chronic.Mild esophageal thickening is present.No pleural or pericardial effusion.No in trathoracic adenopathy. The liver, spleen, pancreas, adrenal glands and kidneys are within normal limits. Cholecystectomy. St ent is present in the common bile duct. No bowel obstruction, free air, free fluid or abscess. Normal appendix. No pathologic lymphadenopath y in the abdomen or pelvis. Moderate lumbar degenerative changes. IMPRESSION: No acute abnormality is detected.
--- NOTE | 2023-08-13 22:24 | EDPHYS ---
Physician Documentation [facility] Name: Chato Moreno IV Age: 67 yrs Sex: Male : 1955 Arrival Date: 08/13/2023 Time: 17:40 Bed 18 Private MD: ED Physician Roque Mcginnis HPI: 08/13 20:10 This 67 yrs old Male presents to ER via EMS with complaints of abd pain. rt 20:10 Patient presents to the ED with reported abdominal pain. History is limited due to rt uncooperative patient. Patient was reportedly drinking all day. No further history could be obtained, symptoms are moderate severity, no other aggravating or elevating factors.. Historical: - Allergies: 17:43 No Known Allergies; as6 - PMHx: 17:43 Atrial fibrillation; Lung Cancer; Emphysema; COPD; Pneumonia; as6 - PSHx: 17:43 Cholecystectomy; as6 - Immunization history:: Adult Immunizations up to date. - Social history:: Smoking status: Patient reports the use of cigarette tobacco products. - Family history:: not pertinent. ROS: 20:10 Unable to obtain ROS due to patient being uncooperative, rt 22:24 Constitutional: Full ROS is not available secondary to delirium and noncooperation sp4 22:24 All other systems are negative, Exam: 20:10 Constitutional: This is a well developed, well nourished patient who is awake, alert, rt and in no acute distress. Head/Face: Normocephalic, atraumatic. Chest/axilla: Normal chest wall appearance and motion. Nontender with no deformity. No lesions are appreciated. Cardiovascular: Regular rate and rhythm with a normal S1 and S2. No gallops, murmurs, or rubs. Normal PMI, no JVD. No pulse deficits. Respiratory: Lungs have equal breath sounds bilaterally, clear to auscultation and percussion. No rales, rhonchi or wheezes noted. No increased work of breathing, no retractions or nasal flaring. Skin: Warm, dry with normal turgor. Normal color with no rashes, no lesions, and no evidence of cellulitis. MS/ Extremity: Pulses equal, no cyanosis. Neurovascular intact. Full, normal range of motion. Neuro: Awake and alert, GCS 15, oriented to person, place, time, and situation. Cranial nerves II-XII grossly intact. Motor strength 5/5 in all extremities. Sensory grossly intact. Cerebellar exam normal. Normal gait. 20:10 Abdomen/GI: Tenderness diffusely without rebound, guarding, distention, Vital Signs: 17:43 BP 102 / 62; Pulse 101; Resp 18 S; Temp 98; Pulse Ox 98% on R/A; as6 19:00 BP 112 / 78; Pulse 103; Resp 15 S; Pulse Ox 95% on R/A; jw7 20:00 BP 126 / 91; Pulse 100; Resp 11 S; Pulse Ox 97% on R/A; jw7 21:00 BP 118 / 81; Pulse 90; Resp 12 S; Pulse Ox 97% on R/A; jw7 22:00 BP 145 / 90; Pulse 93; Resp 11 S; Pulse Ox 100% on 2 lpm NC; jw7 23:00 BP 130 / 81; Pulse 97; Resp 11 S; Pulse Ox 100% on 2 lpm NC; jw7 08/14 00:00 BP 132 / 72; Pulse 93; Resp 11 S; Pulse Ox 100% on 2 lpm NC; jw7 01:00 BP 138 / 90; Pulse 88; Resp 12 S; Pulse Ox 100% on 2 lpm NC; jw7 02:00 BP 138 / 94; Pulse 101; Resp 15 S; Pulse Ox 99% on 2 lpm NC; jw7 Procedures: 08/13 21:33 Central Line: the site was prepped with in sterile fashion, Chlorhexidine, a triple sp4 lumen catheter was inserted, in the right internal jugular vein, in 1 attempts. placement was verified, by CXR, by blood return, Ultrasound-guided central line, the site was dressed with 4X4s, Tegaderm, using sterile technique, the patient tolerated the procedure, well, Patient has very poor peripheral vascular access. Right external jugular line has failed patient was given right internal jugular CVL secondary to very poor peripheral access. MDM: 18:21 Patient medically screened. rt 21:33 Data reviewed: vital signs, nurses notes. sp4 22:24 Differential Diagnosis altered mental status, sepsis, flu, Alcohol induced delirium. sp4 22:48 ED course: EXAM DESCRIPTION: CT - Chest Abdomen Pelvis W Cont - 08/13/2023 9:48 pm sp4 CLINICAL HISTORY: Chest and abdomen pain. ABDOMINAL DISTENTION COMPARISON: Chest For Pe Angio dated 12/24/2022; Abdomen Pelvis W Contrast dated 05/29/2023 TECHNIQUE: Approximately 100 mL nonionic IV contrast was administered to the patient. All CT scans are performed using dose optimization technique as appropriate and may include automated exposure control or mA/KV adjustment according to patient size. FINDINGS: Significant emphysema is present. Irregular cavitary scarring is seen in the right upper lobe laterally, chronic.Mild esophageal thickening is present.No pleural or pericardial effusion.No intrathoracic adenopathy. The liver, spleen, pancreas, adrenal glands and kidneys are within normal limits. Cholecystectomy. Stent is present in the common bile duct. No bowel obstruction, free air, free fluid or abscess. Normal appendix. No pathologic lymphadenopathy in the abdomen or pelvis. Moderate lumbar degenerative changes. IMPRESSION: No acute abnormality is detected.. ED course: CXR after CVL -- EXAM DESCRIPTION: RAD - Chest Single View - 08/13/2023 9:45 pm CLINICAL HISTORY: Right CVL placement Chest pain. COMPARISON: Chest Single View dated 04/08/2023; Chest Single View dated 12/24/2022; Chest Single View dated 11/24/2022; Chest Single View dated 11/14/2022 FINDINGS: Portable technique limits examination quality. Right-sided venous catheter has tip in the SVC. No pneumothorax.. 22:49 Consideration of Admission/Observation Patient was admitted/placed on observation. sp4 Escalation of care including admission/observation considered. Management of patient was discussed with the following: Hospitalist: Prem CARDENAS . ED course: Patient was given second dose of Geodon IM 20 mg for persistent agitation. ED course: CT revealed no acute emergent condition. Will request admission for monitoring and repeat assessment after patient wakes up from his Geodon . 08/13 18:25 Order name: CBC with Diff; Complete Time: 22:20 rt 08/13 18:25 Order name: CMP; Complete Time: 22:20 rt 08/13 18:25 Order name: Lipase; Complete Time: 22:20 rt 08/13 18:25 Order name: Urinalysis w/ reflexes rt 08/13 19:48 Order name: ETOH Level; Complete Time: 22:20 rt 08/13 19:52 Order name: Glucose, Ancillary Testing; Complete Time: 20:10 EDMS 08/13 20:22 Order name: Urine Drug Screen; Complete Time: 02:00 sp4 08/13 20:22 Order name: TSH; Complete Time: 22:20 sp4 08/13 20:23 Order name: CRP; Complete Time: 22:20 sp4 08/13 20:23 Order name: Urinalysis W/Microscopic; Complete Time: 02:00 sp4 08/13 21:31 Order name: Chest Single View XRAY; Complete Time: 22:20 sp4 08/13 21:31 Order name: CT Chest, Abdomen, Pelvis - W/Contrast; Complete Time: 22:20 sp4 08/13 23:10 Order name: Delirium Tremens Prophylaxis-IV Meds; Complete Time: 01:13 EDMS 08/13 18:25 Order name: IV Saline Lock; Complete Time: 21:25 rt 08/13 18:25 Order name: Labs collected and sent; Complete Time: 20:52 rt 08/13 20:04 Order name: Misc. Order: RECOLLECT - LAV TOP; Complete Time: 20:52 ty 08/13 21:05 Order name: Central Line Kit; Complete Time: 21:25 sp4 Administered Medications: 18:46 Drug: Geodon IM 20 mg IM once Route: IM; Site: right deltoid; bp 08/14 00:36 Follow up: Response: No adverse reaction; Marked relief of symptoms jw7 08/13 20:51 Drug: Famotidine IVP 20 mg IVP once; dilute with 10 mL 0.9% NaCl; give over 2 minutes jw7 Route: IVP; Site: right upper arm; 08/14 00:35 Follow up: Response: No adverse reaction jw7 08/13 20:51 Drug: Pantoprazole IVP 40 mg IVP once Route: IVP; Site: right upper arm; jw7 08/14 00:36 Follow up: Response: No adverse reaction 7 08/13 20:52 Drug: NS 0.9% IV 1000 ml IV at 1 bolus Per protocol; 1000 mL bolus Route: IV; Rate: 1 jw7 bolus; Site: right upper arm; 08/14 00:35 Follow up: Response: No adverse reaction; IV Status: Completed infusion; IV Intake: jw7 1000ml 08/13 20:52 Drug: Ondansetron IVP 4 mg IVP once; over 2 minutes Route: IVP; Site: right upper arm; jw7 08/14 00:35 Follow up: Response: No adverse reaction 08/13 21:00 Drug: Geodon IM 20 mg IM once Route: IM; Site: left deltoid; 7 08/14 00:36 Follow up: Response: No adverse reaction; Marked relief of symptoms 7 08/13 23:37 Drug: Banana Bag - (Multivitamin IV 1 amp, NS 0.9% IV 1000 ml, Thiamine IV 100 mg, jw7 foLIC Acid IVPB 1 mg) IV at calculated rate once Route: IV; Rate: calculated rate; Site: right jugular; 08/14 01:13 Follow up: Response: No adverse reaction; IV Status: Infusion continued upon admission; jw7 IV Intake: 250ml 00:38 Not Given (Pt Sedated, unable to swallow medicine ): alum-mag jw7 hydroxide-simethsuspension (200 mg-200 mg-20 mg/5 ml) 30 ml PO once 02:17 Drug: Ativan IVP 1 mg IVP once Route: IVP; Site: right jugular; 7 02:17 Follow up: Response: No adverse reaction jw7 Disposition Summary: 08/13/23 22:23 Hospitalization Ordered Notes: Hospitalization Status: Observation sp4 Provider: Braxton Amaro sp4 Location: Telemetry/MedSurg (observation) sp4 Condition: Stable sp4 Problem: new sp4 Symptoms: are unchanged sp4 Bed/Room Type: Standard sp4 Room Assignment: 232(08/14/23 01:38) vc1 Diagnosis - Moderate protein-calorie malnutrition sp4 - Alcohol abuse with intoxication delirium sp4 - Alcohol induced psychosis, physical debility, acute delirium, agitation requiring sp4 sedation Forms: - Medication Reconciliation Form sp4 - SBAR form sp4 - Leadership Thank You Letter sp4 Signatures: Dispatcher [employer] Joel Kuo RN RN bp Nilson Aguilera RN RN as6 Jennifer Almanza RN RN vc1 Lilly Avila RN RN jw7 Eddie Ortega MD MD rt Roque Mcginnis MD MD sp4 Faisal Gibbs Corrections: (The following items were deleted from the chart) 08/13 20:46 18:26 Abdomen Pelvis W Con+CT.RAD.BRZ ordered. EDMS EDMS 20:46 20:23 Abdomen Pelvis Wo Con+CT.RAD.BRZ ordered. EDMS EDMS 21:37 20:24 Chest Abdomen Pelvis Wo Con+CT.RAD.BRZ ordered. EDMS EDMS 23:13 22:23 sp4 ty 08/14 01:38 08/13 23:13 213 ty vc1
--- NOTE | 2023-08-13 22:24 | ER ---
Nurse's Notes [facility] Name: Chato Moreno IV Age: 67 yrs Sex: Male : 1955 Arrival Date: 08/13/2023 Time: 17:40 Bed 18 Private MD: Diagnosis: Moderate protein-calorie malnutrition;Alcohol abuse with intoxication delirium;Alcohol induced psychosis, physical debility, acute delirium, agitation requiring sedation Presentation: 08/13 17:43 Chief complaint: EMS states: called out by son for abdominal pain. pt repeating the as6 word "help" and is positive for ETOH. Coronavirus screen: At this time, the client does not indicate any symptoms associated with coronavirus-19. Ebola Screen: No symptoms or risks identified at this time. Initial Sepsis Screen: Does the patient meet any 2 criteria? No. Patient's initial sepsis screen is negative. Does the patient have a suspected source of infection? No. Patient's initial sepsis screen is negative. Risk Assessment: Do you want to hurt yourself or someone else? Patient reports no desire to harm self or others. Onset of symptoms was August 13, 2023. 17:43 Method Of Arrival: EMS: [facility] as6 17:43 Acuity: STEWART 3 as6 Triage Assessment: 17:45 General: Appears unkempt, Behavior is agitated, anxious. Pain: Unable to use pain bp scale. INTOXICATED. Historical: - Allergies: 17:43 No Known Allergies; as6 - PMHx: 17:43 Atrial fibrillation; Lung Cancer; Emphysema; COPD; Pneumonia; as6 - PSHx: 17:43 Cholecystectomy; as6 - Immunization history:: Adult Immunizations up to date. - Social history:: Smoking status: Patient reports the use of cigarette tobacco products. - Family history:: not pertinent. Screenin:53 [facility] ED Fall Risk Assessment (Adult) History of falling in the last 3 months, bp including since admission No falls in past 3 months (0 pts). Abuse screen: Denies threats or abuse. Denies injuries from another. Nutritional screening: No deficits noted. Tuberculosis screening: No symptoms or risk factors identified. Assessment: 17:53 General: PT UNCOOPERATIVE, YELLING AT STAFF. UNABLE TO ASSESS CHIEF COMPLAINT 2/2 bp PATIENT INTOXICATION. 17:54 Reassessment: PER EMS, PT DRINKING MAD DOG ALL DAY. bp 18:46 Reassessment: HEALTH CARE ACTIVITIES LIMITED BY PT AGITATION AND LACK OF COOPERATION. bp MD INFORMED AND ANXIOLYTIC ADMINISTERED. 19:00 Reassessment: Pt resting with eyes closed, Respirations are even and unlabored, RR 15, jw7 O2 96% RA. 20:00 Reassessment: Pt resting with eyes closed, Respirations are even and unlabored, RR 12, jw7 O2 97% RA. 20:30 Reassessment: Several attempts have been made to start an IV, including ultrasound IV. jw7 Attempts have been unsuccessful Provider notified. 20:40 Reassessment: Pt is awake, uncooperative, pulling at cords, and agitated. Provider alma Notified. 21:00 General: Provider ordered Geodon IM. . jw7 22:00 Reassessment: Patient appears in no apparent distress at this time. Pt is resting with jw7 eyes closed, respirations are even and unlabored, RR 11, O2 100% 2L NC. 23:00 Reassessment: Patient appears in no apparent distress at this time. No changes from 7 previously documented assessment. RR 11, O2 100% 2L NC. 08/14 00:00 Reassessment: Patient appears in no apparent distress at this time. No changes from jw7 previously documented assessment. RR 11, O2 100% 2L NC. 01:00 Reassessment: Patient appears in no apparent distress at this time. No changes from jw7 previously documented assessment. RR 12, O2 100% 2L NC. 02:17 Reassessment: Patient appears in no apparent distress at this time. Pt resting with jw7 eyes closed, respiration are even and unlabored with RR 12, O2 100% 2L NC. Vital Signs: 08/13 17:43 BP 102 / 62; Pulse 101; Resp 18 S; Temp 98; Pulse Ox 98% on R/A; as6 19:00 BP 112 / 78; Pulse 103; Resp 15 S; Pulse Ox 95% on R/A; jw7 20:00 BP 126 / 91; Pulse 100; Resp 11 S; Pulse Ox 97% on R/A; jw7 21:00 BP 118 / 81; Pulse 90; Resp 12 S; Pulse Ox 97% on R/A; jw7 22:00 BP 145 / 90; Pulse 93; Resp 11 S; Pulse Ox 100% on 2 lpm NC; jw7 23:00 BP 130 / 81; Pulse 97; Resp 11 S; Pulse Ox 100% on 2 lpm NC; jw7 08/14 00:00 BP 132 / 72; Pulse 93; Resp 11 S; Pulse Ox 100% on 2 lpm NC; jw7 01:00 BP 138 / 90; Pulse 88; Resp 12 S; Pulse Ox 100% on 2 lpm NC; jw7 02:00 BP 138 / 94; Pulse 101; Resp 15 S; Pulse Ox 99% on 2 lpm NC; jw7 ED Course: 08/13 17:42 Patient arrived in ED. as6 17:42 Arm band placed on. as6 17:44 Eddie Ortega MD is Attending Physician. rt 17:45 Triage completed. as6 17:50 Joel Stark, ELLA is Primary Nurse. bp 17:53 Patient has correct armband on for positive identification. bp 20:05 Attending Physician role handed off by Eddie Ortega MD sp4 20:05 Roque Mcginnis MD is Attending Physician. sp4 20:35 Radiology exam delayed due to patient getting IV at this time. nj 20:58 Radiology exam delayed due to patient getting central line at this time. nj 21:15 Assisted provider with central line placement. Set up central line tray. Triple lumen jw7 line placed in right internal jugular. Line placed by Roque Mcginnis MD Placement verified by CXR, blood return, Dressed with Tegaderm, Patient tolerated well. Time-out/Briefing performed prior to start of procedure? Yes. Was handwashing/sanitizing done immediately prior to procedure? Yes. Was patient positioned to in a way to prevent air embolism? Yes. Was procedure site sterilized? Yes, with chlorhexidine. Was the site allowed to dry? Yes. Was local anesthetic and/or sedation utilized? Yes. During the procedure, did the Practitioner(s) maintain a sterile field? Yes. Were unused ports clamped during insertion? Yes. Was blood aspirated from each lumen? Yes. After the procedure, did the Practitioner(s) clean the site and apply a sterile dressing?. 21:46 Chest Single View XRAY In Process Unspecified. EDMS 21:50 CT Chest, Abdomen, Pelvis - W/Contrast In Process Unspecified. EDMS 22:22 Braxton Amaro MD is Hospitalizing Provider. sp4 08/14 01:12 Provided Education on: Pt Sedated, unable to educate. 7 01:12 Patient admitted, IV remains in place. jw7 Administered Medications: 08/13 18:46 Drug: Geodon IM 20 mg IM once Route: IM; Site: right deltoid; bp 08/14 00:36 Follow up: Response: No adverse reaction; Marked relief of symptoms jw7 08/13 20:51 Drug: Famotidine IVP 20 mg IVP once; dilute with 10 mL 0.9% NaCl; give over 2 minutes jw7 Route: IVP; Site: right upper arm; 08/14 00:35 Follow up: Response: No adverse reaction jw7 08/13 20:51 Drug: Pantoprazole IVP 40 mg IVP once Route: IVP; Site: right upper arm; jw7 08/14 00:36 Follow up: Response: No adverse reaction jw7 08/13 20:52 Drug: NS 0.9% IV 1000 ml IV at 1 bolus Per protocol; 1000 mL bolus Route: IV; Rate: 1 jw7 bolus; Site: right upper arm; 08/14 00:35 Follow up: Response: No adverse reaction; IV Status: Completed infusion; IV Intake: jw7 1000ml 08/13 20:52 Drug: Ondansetron IVP 4 mg IVP once; over 2 minutes Route: IVP; Site: right upper arm; jw7 08/14 00:35 Follow up: Response: No adverse reaction jw7 08/13 21:00 Drug: Geodon IM 20 mg IM once Route: IM; Site: left deltoid; jw7 08/14 00:36 Follow up: Response: No adverse reaction; Marked relief of symptoms jw7 08/13 23:37 Drug: Banana Bag - (Multivitamin IV 1 amp, NS 0.9% IV 1000 ml, Thiamine IV 100 mg, jw7 foLIC Acid IVPB 1 mg) IV at calculated rate once Route: IV; Rate: calculated rate; Site: right jugular; 08/14 01:13 Follow up: Response: No adverse reaction; IV Status: Infusion continued upon admission; jw7 IV Intake: 250ml 00:38 Not Given (Pt Sedated, unable to swallow medicine ): alum-mag jw7 hydroxide-simethsuspension (200 mg-200 mg-20 mg/5 ml) 30 ml PO once 02:17 Drug: Ativan IVP 1 mg IVP once Route: IVP; Site: right jugular; jw7 02:17 Follow up: Response: No adverse reaction jw7 Medication: 08/13 17:53 VIS not applicable for this client. bp Intake: 08/14 00:35 IV: 1000ml; Total: 1000ml. jw7 01:13 IV: 250ml; Total: 1250ml. jw7 Outcome: 08/13 22:23 Decision to Hospitalize by Provider. sp4 08/14 01:11 Admitted to Med/surg accompanied by tech, via stretcher, room 219, Report called to alma Chopra RN Condition: stable Instructed on Unable to instruct pt on need for admit due to sedation. 02:35 Patient left the ED. rv1 Signatures: Dispatcher [employer] EDMS Esteban Serrano Brian RN RN bp Nilson Aguilera RN RN as6 Waits, Jodi, RN RN jwEddie Oseguera MD MD rt Villegas, Rebecca rv1 Roque Mcginnis MD MD sp4 Corrections: (The following items were deleted from the chart) 01:00 08/13 20:40 Reassessment: Provider ordered Geodon IM, to help stabilize pt so Central jw7 Line could be placed jw7 08/14 03:34 08/13 22:00 BP 145 / 90; Pulse 93bpm; Resp 10bpm; Spontaneous; Pulse Ox 100% 2 lpm jw7 Nasal Cannula; jw7 08/14 03:34 01:00 BP 138 / 90; Pulse 88bpm; Resp 11bpm; Spontaneous; Pulse Ox 100% 2 lpm Nasal jw7 Cannula; jw7
[2023-08-13] MEDS ORDERED: ACETAMINOPHEN 325 MG TABLET PO PRN (23:00)
[2023-08-13] MEDS ORDERED: ONDANSETRON 4 MG/2 ML VIAL IV PRN (23:00)
[2023-08-13] MEDS ORDERED: FLUMAZENIL 0.1 MG/ML (5 mL VIAL) IV PRN (23:06)
--- NOTE | 2023-08-13 23:06 | P.HP ---
Certification for Inpatient Patient admitted to: Inpatient With expected LOS: >2 Midnights Practitioner: I am a practitioner with admitting privileges, knowledge of patient current condition, hospital course, and medical plan of care. Services: Services provided to patient in accordance with Admission requirements found in Title 42 Section 412.3 of the Code of Federal Regulations Patient History Date of Service: 08/14/23 Reason for admission: Acute alcohol intoxication. History of Present Illness: 67-year-old male patient with medical history significant for chronic atrial f ibrillation for which he is on anticoagulation with Eliquis, pulmonary embolism, dementia, who came to the ED with complaint of lethargy and alcohol intoxication. He has a history of alcoholism and has had significant issues with acute alcohol binge recently. Blood alcohol level was found to be 180 mg and patient was asked to evaluated for episode of acute alcohol intoxication and lethargy. No seizures reported. No nausea, vomiting, diarrhea reported. Allergies No Known Allergies Allergy (Verified 10/07/22 13:27) Home Medications: Apixaban [Eliquis] 5 mg PO BID 30 Days #60 tablet 08/30/22 Midodrine HCl [Proamatine*] 5 mg PO BID 30 Days #30 tab 08/31/22 Pantoprazole [Protonix Tab*] 40 mg PO BID #60 tab 10/07/22 Memantine HCl [Namenda*] 10 mg PO DAILY 11/15/22 Amitriptyline [Elavil*] 25 mg PO BEDTIME 12/25/22 Pantoprazole [Protonix Tab*] 40 mg PO BID tab 12/26/22 levoFLOXacin [Levaquin*] 750 mg PO DAILY #7 tab 12/26/22 - Past Medical/Surgical History Diabetic: No -: Chronic pain -: Anorexia -: COPDon home O2 -: History of lung cancer, small cell lung cancer with mets -: Pulmonary Embolism -: Atrial fibrillation -: None Psychosocial/ Personal History: Patient is retired and lives at home with his . - Family History Sister -: Cancer Notes: lung Father -: Heart disease Mother -: Other (see notes) Notes: alzheimers - Social History Alcohol use: No CD- Drugs: No Caffeine use: Yes Review of Systems General: Malaise Eyes: Unremarkable ENT: Unremarkable Respiratory: Unremarkable Cardiovascular: Unremarkable Gastrointestinal: Unremarkable Genitourinary: Unremarkable Musculoskeletal: Unremarkable Integumentary: Unremarkable Neurological: Unremarkable Lymphatics: Unremarkable Physical Examination - Physical Exam General: Alert, Oriented x3 HEENT: Atraumatic, Normocephalic Neck: Supple Respiratory: Normal air movement Cardiovascular: Regular rate/rhythm, Normal S1 S2 Gastrointestinal: Soft and benign Musculoskeletal: No swelling Neurological: Normal speech, Normal strength at 5/5 x4 extr - Studies Laboratory Data (last 24 hrs) 08/13/23 08/13/23 20:35 19:45 WBC 7.90 Hgb 14.9 Hct 45.4 Plt Count 339 Sodium 142 Potassium 4.0 BUN < 3 L Creatinine 0.63 L Glucose 112 H Total Bilirubin 0.1 L AST 23 ALT 19 Alkaline Phosphatase 176 H Lipase 9 L Assessment and Plan - Plan Acute alcohol intoxication: patient is inebriated with alcohol level of 189. Will put on CIWA protocol, banana bag and multivitamin supplementation. Will monitor symptomatology closely. History of chronic atrial fibrillation on anticoagulation: Continue Eliquis for anticoagulation and rate control medications Dementia: Continue outpatient medication. Prophylaxis: Eliquis to be continued for A-fib anticoagulation and DVT prophylaxis. CODE STATUS: Full code. Disposition: We will treat his acute alcohol intoxication episode and he will be discharged when deemed clinically stable. - Advance Directives Does patient have a Living Will: No Does patient have a Durable POA for Healthcare: No
[2023-08-13] MEDS ORDERED: THIAMINE 200 MG/2 ML INJ ONE (23:08)
[2023-08-13] MEDS ORDERED: MULTIVITAMINS 10 ML VIAL (INJ) IV ONE (23:09)
[2023-08-13] MEDS ORDERED: FOLIC ACID 5 MG/ML VIAL ONE (23:11)
[2023-08-14] MEDS: LORazepam 2 MG/ML VIAL IV SCH
[2023-08-14 01:17] LABS: Specific Gravity 1.029 (1.005-1.030); Urine Bacteria None Seen /HPF (<20); Urine Bilirubin NEGATIVE (Negative); Urine Blood Negative (Negative); Urine Clarity Clear (Clear); Urine Color Colorless (Yellow); Urine Glucose NEGATIVE (Negative); Urine Protein NEGATIVE (Negative); Urine RBC None Seen /HPF (None Seen); Urine Urobilinogen Normal (Normal)
[2023-08-14 01:18] LABS: Barbiturates NEGATIVE (NEGATIVE); Benzodiazepines NEGATIVE (NEGATIVE); Cocaine NEGATIVE (NEGATIVE); METHAMPHETAM NEGATIVE (NEGATIVE); Methadone NEGATIVE (NEGATIVE); Opiates NEGATIVE (NEGATIVE); Phencyclidine NEGATIVE (NEGATIVE); THC Cannibis NEGATIVE (NEGATIVE)
[2023-08-14] MEDS ORDERED: LORazepam 2 MG/ML VIAL ONE (02:12)
[2023-08-14 03:07] VITALS: BMI 16.2
[2023-08-14] MEDS: FOLIC ACID 1 MG, MULTIVITAMINS INJ 10 ML, THIAMINE HCL 100 MG in NA CHLORIDE 0.9% 1,000 ML IV SCH (08:34)
[2023-08-14] MEDS: APIXABAN 5 MG TABLET PO SCH (08:35)
[2023-08-14] MEDS ORDERED: ENOXAPARIN 40 MG/0.4 ML SQ SCH (09:00)
--- NOTE | 2023-08-14 11:35 | P.PN ---
Subjective Date of Service: 08/14/23 Chief Complaint: Acute alcohol intoxication. Pt was sound asleep when I saw him. In NAD. No complaints overnight. He is getting banana bag. Review of Systems is unable to be obtained Physical Examination - Vital Signs Temperature: 98.1 F Blood Pressure: 135/78 Pulse: 86 Respirations: 16 Pulse Ox (%): 96 - Physical Exam General: Alert, In no apparent distress, Oriented x3 HEENT: Atraumatic, Normocephalic Neck: Supple, 2+ carotid pulse no bruit Respiratory: Clear to auscultation bilaterally, Normal air movement Cardiovascular: No edema, Normal pulses Capillary refill: <2 Seconds Gastrointestinal: Normal bowel sounds, Soft and benign, Non-distended Musculoskeletal: No clubbing, No swelling Integumentary: No rashes, No breakdown Neurological: Other (unable obtain) Lymphatics: No axilla or inguinal lymphadenopathy - Studies Laboratory Data (last 24 hrs) 08/13/23 08/13/23 20:35 19:45 WBC 7.90 Hgb 14.9 Hct 45.4 Plt Count 339 Sodium 142 Potassium 4.0 BUN < 3 L Creatinine 0.63 L Glucose 112 H Total Bilirubin 0.1 L AST 23 ALT 19 Alkaline Phosphatase 176 H Lipase 9 L Assessment And Plan - Plan Acute alcohol intoxication: Pt was sleeping when I saw him. Etoh level is 189. Will continue CIWA protocol, banana bag and multivitamin supplementation. Will monitor closely. History of chronic atrial fibrillation on anticoagulation: Continue Eliquis for anticoagulation and rate control medications Dementia: Continue supportive care and outpatient medication. Tachycardia: Will continue IVF. DVT Prophylaxis: Eliquis Code: Full code. Dispo: Pending hospital course.
[2023-08-15 07:11] LABS: Absolute Lymphocytes (CBC) 2.3 K/uL (0.7-4.9); Hematocrit 38.8 % (39.6-49.0); MCV 89.3 fL (80-100); MPV 7.6 fL (7.6-11.3); Platelets 260 thou/uL (152-406); RBC Red Blood Cell Count 4.35 M/uL (4.33-5.43)
[2023-08-15 07:22] LABS: Potassium 3.8 mEq/L (3.5-5.1)
--- NOTE | 2023-08-15 11:43 | P.PN ---
Subjective Date of Service: 08/15/23 Chief Complaint: Acute alcohol intoxication. Pt was confused when I saw him. he is making inaudible sound. Still getting CIWA protocol. No complaints overnight. Review of Systems is unable to be obtained Physical Examination - Vital Signs Temperature: 99.2 F Blood Pressure: 120/82 Pulse: 101 Respirations: 22 Pulse Ox (%): 92 - Physical Exam General: Confused HEENT: Atraumatic, Normocephalic Neck: Supple, 2+ carotid pulse no bruit Respiratory: Clear to auscultation bilaterally, Normal air movement Cardiovascular: No edema, Normal pulses, Regular rate/rhythm, Normal S1 S2 Capillary refill: <2 Seconds Gastrointestinal: Normal bowel sounds, Soft and benign, Non-distended Musculoskeletal: No clubbing, No swelling Integumentary: No rashes, No breakdown Neurological: Other (confused due to alcohol intoxication. ) Lymphatics: No axilla or inguinal lymphadenopathy Assessment And Plan - Plan Acute alcohol intoxication: Pt was sleeping when I saw him. Etoh level is 189. Will continue CIWA protocol, banana bag and multivitamin supplementation. Will monitor closely. History of chronic atrial fibrillation on anticoagulation: Continue Eliquis for anticoagulation and rate control medications Dementia: Continue supportive care and outpatient medication. Tachycardia: Will continue IVF. Nutrition: Pt is NPO. Will start D5 1/2 NS. DVT Prophylaxis: Eliquis Code: Full code. Dispo: Pending hospital course.
[2023-08-15] MEDS: D5 0.45 NS 1,000 ML IV SCH (12:06)
[2023-08-16] MEDS: LORazepam 2 MG/ML VIAL IV SCH
[2023-08-16 10:25] LABS: Absolute Lymphocytes (CBC) 1.8 K/uL (0.7-4.9); Hematocrit 37.7 % (39.6-49.0); Lymphocytes % 17.5 % (15.3-44.8); MCV 89.8 fL (80-100); MPV 7.6 fL (7.6-11.3); Platelets 203 thou/uL (152-406)
--- NOTE | 2023-08-16 10:26 | P.PN ---
Subjective Date of Service: 08/16/23 Chief Complaint: Acute alcohol intoxication. Pt was sleeping when I saw him. Still getting CIWA protocol. No complaints overnight. Review of Systems is unable to be obtained Physical Examination - Vital Signs Temperature: 97.5 F Blood Pressure: 103/72 Pulse: 85 Respirations: 16 Pulse Ox (%): 98 - Physical Exam General: In no apparent distress, Cachectic, Confused HEENT: Atraumatic, Normocephalic Neck: Supple, 2+ carotid pulse no bruit Respiratory: Clear to auscultation bilaterally, Normal air movement Cardiovascular: No edema, Normal pulses, Regular rate/rhythm, Normal S1 S2 Capillary refill: <2 Seconds Gastrointestinal: Normal bowel sounds, Soft and benign, Non-distended Musculoskeletal: No clubbing, No swelling Integumentary: No rashes, No breakdown Neurological: Other (somnolent) Lymphatics: No axilla or inguinal lymphadenopathy Assessment And Plan - Plan Acute alcohol intoxication: Pt was sleeping when I saw him. Etoh level is 189. Will continue CIWA protocol, banana bag and multivitamin supplementation. Will monitor closely. History of chronic atrial fibrillation on anticoagulation: Continue Eliquis for anticoagulation and rate control medications Dementia: Continue supportive care and outpatient medication. Tachycardia: Will continue IVF. Nutrition: Pt is NPO. Will start D5 1/2 NS. DVT Prophylaxis: Eliquis Code: Full code. Dispo: Pending hospital course.
[2023-08-16 10:39] LABS: Potassium 3.3 mEq/L (3.5-5.1)
[2023-08-16] MEDS: LORazepam 2 MG/ML VIAL IV PRN (19:10)
[2023-08-17 03:44] LABS: Hematocrit 35.9 % (39.6-49.0); Lymphocytes % 24.4 % (15.3-44.8); MPV 7.8 fL (7.6-11.3); Platelets 203 thou/uL (152-406); RBC Red Blood Cell Count 4.04 M/uL (4.33-5.43)
[2023-08-17 03:55] LABS: Potassium 3.3 mEq/L (3.5-5.1)
[2023-08-17] MEDS: POTASSIUM CL 40 MEQ in NA CHLORIDE 0.9% 500 ML IV SCH (09:37)
--- NOTE | 2023-08-17 11:03 | P.PN ---
Subjective Date of Service: 08/17/23 Chief Complaint: Acute alcohol intoxication. Pt is awake and confused. He is under CIWA protocol. No complaints overnight. Review of Systems is unable to be obtained Integumentary: Unremarkable Physical Examination - Vital Signs Temperature: 97.9 F Blood Pressure: 106/87 Pulse: 90 Respirations: 18 Pulse Ox (%): 98 - Physical Exam General: Alert, In no apparent distress, Oriented x3 HEENT: Atraumatic, Normocephalic, PERRLA Neck: Supple, 2+ carotid pulse no bruit Respiratory: Clear to auscultation bilaterally, Normal air movement Cardiovascular: No edema, Normal pulses, Regular rate/rhythm, Normal S1 S2 Capillary refill: <2 Seconds Gastrointestinal: Normal bowel sounds, Soft and benign, Non-distended Musculoskeletal: No clubbing, No swelling Integumentary: No rashes, No breakdown Neurological: Other (confused) Lymphatics: No axilla or inguinal lymphadenopathy Assessment And Plan - Plan Acute alcohol intoxication: Pt was sleeping when I saw him. Etoh level is 189. Will continue CIWA protocol, banana bag and multivitamin supplementation. Will monitor closely. Hypokalemia: k is 3.3. Will replete with KCL 40mg iv once. F/u mag level. History of chronic atrial fibrillation on anticoagulation: Continue Eliquis for anticoagulation and rate control medications when cleared to swallow. Dementia: Continue supportive care and outpatient medication. Tachycardia: Will continue IVF. Nutrition: Pt is NPO. Will start D5 1/2 NS. DVT Prophylaxis: Eliquis Code: Full code. Dispo: Pending hospital course.
[2023-08-17] MEDS: MAGNESIUM 50% 3 GM in NA CHLORIDE 0.9% 100 ML IV ONE (15:44)
--- NOTE | 2023-08-18 06:21 | P.PN ---
Date of Service: 08/18/23 Subjective: Physical Exam: Vitals: reviewed GEN: Alert, oriented, NAD HEENT: Normal conjunctiva, sclera anicteric CV: Regular rate & rhythm, no edema Pulm: Nonlabored respiraitons, clear bilaterally ABD: Soft, nontender, nondistended MSK: No joint tenderness Integumentary: No rashes Neuro: Normal speech, normal affect Problem List: Acute alcohol intoxication Hypokalemia Chronic a-fib on anticoagulation Dementia Plan Acute alcohol intoxication Hypokalemia Etoh level is 189 continue IV fluids CIWA protocol. monitor for withdrawals continue banana bag / multivitamin monitor closely ativan PRN PRN analgesics / antiemetics Chronic a-fib on anticoagulation continue eliquis Dementia continue supportive care, home meds VTE: home eliquis
[2023-08-18 07:00] LABS: Absolute Lymphocytes (CBC) 1.8 K/uL (0.7-4.9); Hematocrit 39.4 % (39.6-49.0); Lymphocytes % 14.6 % (15.3-44.8); MCV 89.7 fL (80-100); MPV 7.9 fL (7.6-11.3); Platelets 189 thou/uL (152-406); RBC Red Blood Cell Count 4.39 M/uL (4.33-5.43)
[2023-08-18 07:26] LABS: Potassium 3.5 mEq/L (3.5-5.1)
--- NOTE | 2023-08-18 07:38 | P.PN ---
Subjective Date of Service: 08/18/23 Chief Complaint: Acute alcohol intoxication. Requiring as needed Ativan for agitation, daily alcohol use, reports being on Suboxone, Resting with eyes closed, attempted speech therapy eval today was unable we will try again tomorrow - Physical Exam General: Alert, Oriented resting with eyes closed HEENT: Atraumatic, Normocephalic Neck: Supple Respiratory: Normal air movement Cardiovascular: Regular rate/rhythm, Normal S1 S2 Gastrointestinal: Soft and benign Musculoskeletal: No swelling Neurological: Normal speech, Normal strength at 5/5 x4 extr Review of Systems per HPI Physical Examination - Vital Signs Temperature: 98.7 F Blood Pressure: 144/79 Pulse: 86 Respirations: 20 Pulse Ox (%): 99 Assessment And Plan - Plan Assessment plan Acute alcohol intoxication acute Will continue CIWA protocol, banana bag and multivitamin supplementation. Will monitor closely. D5 half-normal saline Requires as needed Ativan for agitation Is on Ensure 3 times daily with meals poor p.o. intake Metabolic encephalopathy, altered mental status likely secondary to EtOH intoxication Leukocytosis unknown source CT of the abdomen pelvis IMPRESSION: No acute abnormality is detected., Emphysema Chest [id number] venous catheter has tip in the SVC. No pneumothorax. UA negative Speech eval Supportive care, fall precautions History of polysubstance use UDS negative Reports daily alcohol use, reports being on Suboxone, Hypokalemia: k is 3.3. Will replete with KCL 40mg iv once. F/u mag level. History of chronic atrial fibrillation on anticoagulation: Continue Eliquis for anticoagulation and rate control medications when cleared to swallow. Dementia: Continue supportive care and outpatient medication. Microcytic anemia stable Trend H&H Hemoglobin 12.9, 13.1 Tachycardia: Will continue IVF. Tobacco use Emphysema Educated on tobacco cessation when more alert DVT Prophylaxis: Eliquis Code: Full code. Dispo: Pending hospital course. Discharge Plan: Home - Code Status/Comfort Care Code Status: Full Code Critical Care: No Time Spent Managing PTS Care (In Minutes): 35
[2023-08-18 08:47] LABS: Blood Morphology Comment NOT SEEN (NOT SEEN); Platelet Estimate ADEQ; White Blood Cell Scan OK (OK)
--- NOTE | 2023-08-18 11:08 | EKG ---
Test Date: 2023-08-14 Test Time: 01:35:10 Gear Shaper Set Up Operator: KATEY MEASUREMENT RESULTS: Intervals: Rate: 99 RI: 128 QRSD: 58 QT: 358 QTc: 459 [place]: P: 59 RI: 128 QRS: 39 T: 69 INTERPRETIVE STATEMENTS: Normal sinus rhythm Low voltage QRS Septal infarct, age undetermined Abnormal ECG Compared to ECG 04/08/2023 07:42:35 Low QRS voltage now present Myocardial infarct finding now present Short RI interval no longer present Electronically Signed On 08-18-23 11:01:03 MARINE ENGINE DRIVER by Akhil Mathews
[2023-08-18] MEDS: ENSURE ENLIVE 237 ML CAN PO SCH (14:00)
[2023-08-18] MEDS ORDERED: DEXMEDETOMIDINE HCL 200 MCG/2 ML VIAL ONE ×2 (20:08→23:58)
[2023-08-18] MEDS ORDERED: NA CHLORIDE 0.9% 100 ML ONE ×2 (20:08→23:58)
[2023-08-18] MEDS: DEXMEDETOMIDINE HCL 200 MCG in NA CHLORIDE 0.9% 98 ML IV SCH (20:20)
[2023-08-19] MEDS: DEXMEDETOMIDINE HCL 1,000 MCG in NA CHLORIDE 0.9% 490 ML IV SCH (08:46)
[2023-08-19] MEDS: ENOXAPARIN 40 MG/0.4 ML SQ SCH (09:57)
[2023-08-19] MEDS: MIDODRINE HCL 5 MG TABLET PO SCH (14:00)
[2023-08-19] MEDS: QUETIAPINE 25 MG TAB PO SCH (21:00)
[2023-08-20 08:09] LABS: Absolute Lymphocytes (CBC) 1.8 K/uL (0.7-4.9); MPV 7.6 fL (7.6-11.3); Platelets 206 thou/uL (152-406); RBC Red Blood Cell Count 4.15 M/uL (4.33-5.43)
[2023-08-20 08:19] LABS: Protime INR 1.03
[2023-08-20 08:39] LABS: ALT/SGPT 14 U/L (16-61); AST/SGOT < 4 U/L (15-37); Albumin 2.1 g/dL (3.4-5.0); Alkaline Phosphatase 93 U/L (45-117); BUN Blood Urea Nitrogen < 3 mg/dL (7-18); Bicarbonate 27 mEq/L (21-32); Bilirubin Total 0.4 mg/dL (0.2-1.0); Glomerular Filtration Rate 118 ml/min (=/>90); Glucose Level 116 mg/dL (74-106); Magnesium 1.5 mg/dL (1.6-2.4); Potassium 2.9 mEq/L (3.5-5.1); Protein, Total 5.4 g/dL (6.4-8.2); Sodium Level 143 mEq/L (136-145)
[2023-08-20] MEDS ORDERED: ALBUMIN HUMAN 25% 50 ML IV ONE (14:03)
[2023-08-20] MEDS ORDERED: METHYLPREDNISOLONE 40 MG INJ ONE (14:03)
[2023-08-20] MEDS ORDERED: FUROSEMIDE 20 MG/ 2ML VIAL ONE (14:03)
[2023-08-20] MEDS: FUROSEMIDE 20 MG/ 2ML VIAL IV ONE (14:06)
[2023-08-20] MEDS: ALBUMIN HUMAN 25% 100 ML IV ONE (14:06)
[2023-08-20] MEDS ORDERED: METHYLPREDNISOLONE 125 MG INJ ONE (14:07)
[2023-08-20] MEDS: METHYLPREDNISOLONE 125 MG INJ IV ONE (14:07)
[2023-08-20] MEDS: KCL 20 MEQ/100 mL IVPB 20 MEQ/100 ML BAG IV SCH (14:14)
[2023-08-20] MEDS: ALBUTEROL 2.5 MG/3 ML NEB SOL NEB SCH (14:30)
[2023-08-20] MEDS: IPRATROPIUM BROM 0.5MG/2.5ML NEB SCH (14:30)
--- NOTE | 2023-08-20 14:31 | RAD REPORT ---
EXAM DESCRIPTION: RAD - Chest Single View - 08/20/2023 2:19 pm CLINICAL HISTORY: dyspnea COMPARISON: Chest Single View dated 08/13/2023; Chest Single View dated 04/08/2023; Chest Single View dated 12/24/2022; Chest Single View dated 11/24/2022; Chest Abdomen Pelvis W Cont dated 08/13/2023 FINDINGS: Lines: Right IJ approach central line in similar positioning. Lungs: Right apical scarring is again noted. Mild increased nodularity at the left lung base. Pleural: No significant pleural effusions or pneumothorax. Cardiac: The heart size is within normal limits. Mediastinum: Within normal limits. Bones: No acute fractures. Other: None IMPRESSION: Mild increased nodularity at the left lung base could reflect pneumonia or pneumonitis.
[2023-08-20] MEDS ORDERED: ALBUTEROL 2.5 MG/3 ML NEB SOL ONE (14:32)
[2023-08-20] MEDS ORDERED: IPRATROPIUM BROM 0.5MG/2.5ML ONE (14:32)
[2023-08-21 00:20] VITALS: O2SAT 99
[2023-08-21 05:15] LABS: Absolute Lymphocytes (CBC) 0.8 K/uL (0.7-4.9); Hematocrit 34.2 % (39.6-49.0); Lymphocytes % 12.1 % (15.3-44.8); MCV 88.2 fL (80-100); MPV 7.7 fL (7.6-11.3); Platelets 230 thou/uL (152-406); RBC Red Blood Cell Count 3.88 M/uL (4.33-5.43)
[2023-08-21 05:25] LABS: Albumin 2.5 g/dL (3.4-5.0); Bilirubin Total 0.4 mg/dL (0.2-1.0); Potassium 3.6 mEq/L (3.5-5.1); Protein, Total 6.2 g/dL (6.4-8.2)
[2023-08-21] MEDS ORDERED: IPRATROPIUM BROM 0.5MG/2.5ML ONE (07:30)
[2023-08-21] MEDS ORDERED: ALBUTEROL 2.5 MG/3 ML NEB SOL ONE (07:30)
[2023-08-21] MEDS ORDERED: ENOXAPARIN 40 MG/0.4 ML SQ ONE (08:16)
[2023-08-21] MEDS ORDERED: POTASSIUM CL SA 10 MEQ TAB PO ONE (08:16)
[2023-08-21] MEDS ORDERED: MIDODRINE HCL 5 MG TABLET ONE (08:16)
[2023-08-21] MEDS: POTASSIUM CL SA 10 MEQ TAB PO ONE (09:02)
[2023-08-21 09:36] VITALS: BP 116/79; TEMP 98.2
== END 2023-08-21 12:15 | disposition home or self-care (01) | DRG 896 ==
LOC: ER 17:40 → 2ND 23:00 → 3RD-ICU 08-18 22:01
PROVIDERS: ADMIT Internal Medicine Nephrology; ATTEND Hospitalist
PROC: 02HV33Z Insertion of Infusion Device into Superior Vena Cava, Percutaneous Approach (ICD-10-PCS; principal; 2023-08-13)
PROC: HZ2ZZZZ Detoxification Services for Substance Abuse Treatment (ICD-10-PCS; 2023-08-13)
DX: F10.121 Alcohol abuse with intoxication delirium (principal); G93.41 Metabolic encephalopathy; J96.01 Acute respiratory failure with hypoxia; E44.0 Moderate protein-calorie malnutrition; Z68.1 Body mass index [BMI] 19.9 or less, adult; I48.20 Chronic atrial fibrillation, unspecified; F03.911 Unspecified dementia, unspecified severity, with agitation; R64 Cachexia; E87.6 Hypokalemia; D50.9 Iron deficiency anemia, unspecified; J43.9 Emphysema, unspecified; F10.159 Alcohol abuse with alcohol-induced psychotic disorder, unspecified; F17.210 Nicotine dependence, cigarettes, uncomplicated; R00.0 Tachycardia, unspecified; Z90.49 Acquired absence of other specified parts of digestive tract; Z99.81 Dependence on supplemental oxygen; Z79.01 Long term (current) use of anticoagulants; Z79.899 Other long term (current) drug therapy; Z86.711 Personal history of pulmonary embolism; Y90.6 Blood alcohol level of 120-199 mg/100 ml
CPT/HCPCS: 36415; 36569; 71045; 71260; 74177; 80048; 80053; 80307; 81001; 82077; 82140; 82947; 83690; 83735; 84443; 85025; 85610; 85730; 86140; 92610; 93005; 94640; 96372; 97165; 99285; C9113; J1650; J1940; J2001; J2405; J2920; J2930; J3411; J3475; J3480; J3486; J7030; J7040; J7613; J7644; J7799; P9047; Q9967

== ENCOUNTER 2023-09-28 12:39 | Emergency (ER) | payer OTHER ==
--- OUTSIDE RECORDS SUMMARY | 2023-09-28 12:43 | XMS REPORT | Clinical Summary ---
Author Name Unknown Organization [facility] Address [address] [place] [address] Care Team Providers Care Slate Handler Name Role Phone Carl Jones MD Unavailable Henrique Plaesncia MD Primary Care Provider [phone] Kang Piedra MD Unavailable [phone] Mary Beth Hinson [facility] MAINTENANCE CHIEF Unavailable Berta Clay Fraser MD Unavailable [phone] Kang Monreal MD Unavailable [phone] Patrick Huerta MD Unavailable [phone] Allergies No known active allergies Medications [...] twice daily. 20 tablet 0 06/27/2023 Active Trelegy Ellipta 100-62.5-25 mcg dsdv 1 each. 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 Tube feeding diet [...] 08/10/2020 Decompensated COPD with acute exacerbation 07/30 long-term current use of opiate analgesic 2020 Small [...] Encounters Date Type Department Care Team Description 09/12/2023 3:00 PM CDT [facility]Up [facility] [address] [place] [address] Main [facility], 9th [place] [address] Henrique Plasencia MD Small cell carcinoma, NOS of upper lobe, lung <Right> 09/12/2023 9:40 AM CDT - 09/12/2023 11:59 PM CDT Hospital Encounter [facility] [address] Main Bldg, [place] [address] Stella Clark APRN Small cell carcinoma, NOS of upper lobe, lung <Right> Discharge Disposition: Home 09/12/2023 9:03 AM CDT - 09/12/2023 9:39 AM CDT Hospital Encounter Main CT IMAGING [address] [facility] Main Bldg, 3rd [place] [address] Stella Clark APRN Small cell carcinoma, NOS of upper lobe, lung <Right> Discharge Disposition: Home 09/12/2023 Travel 06/27/2023 3:00 PM [employer]ES [employer] Follow-Up [facility] Main Bldg, 9th [place] [address] Henrique Plasencia MD Upper respiratory infection, not otherwise specified (Primary Dx); Small cell carcinoma, NOS of upper lobe, lung <Right> 06/27/2023 8:51 AM SALES [employer] - 06/27/2023 11:59 PM SALES [employer] Hospital Encounter Main CT IMAGING [address] [facility] Main Bldg, 3rd [place] [address] Stella Clark APRN Small cell carcinoma, NOS of upper lobe, lung <Right> Discharge Disposition: Home 06/27/2023 8:14 AM SALES [employer] - 06/27/2023 8:50 AM SALES [employer] Hospital Encounter [facility] Center [facility] Main Bldg, [place] [address] Stella Clark APRN Small cell carcinoma, NOS of upper lobe, lung <Right> Discharge Disposition: Home 06/27/2023 Travel 06/27/2023 Orders Only [facility] [address] Main Bldg, 9th [place] [address] Stella Clark APRN 06/16/2023 Orders Only [facility] [address] Main Bldg, 9th [place] [address] Stella Clark APRN Small cell carcinoma, NOS of upper lobe, lung <Right> (Primary Dx) 04/22/2023 Orders Only [facility] [address] Main Bldg, 9th [place] [address] Stella Clark APRN Small cell carcinoma, NOS of upper lobe, lung <Right> (Primary Dx) 03/31/2023 2:00 PM CDT Telemedicine [facility] [address] Main Bldg, 9th [place] [address] Stella Clark APRN 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 03/28/2023 Orders Only [facility] [address] Main Bldg, 9th [place] [address] Henrique Plasencia MD 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 (Primary Dx) 03/26/2023 Telephone [facility] [address] Main Bldg, 9th [place] [address] Lisa Acevedo RN 03/17/2023 10:00 AM CDT Telemedicine [facility] [address] Main Bldg, 9th [place] [address] Stella Clark APRN Small cell carcinoma, NOS of upper lobe, lung <Right> 03/16/2023 Orders Only [facility] [address] Main Bldg, 9th [place] [address] Stella Clark APRN 03/10/2023 Orders Only [facility] [address] Main Bldg, 9th [place] [address] Stella Clark APRN Small cell carcinoma, NOS of upper lobe, lung <Right> (Primary Dx) 03/06/2023 Orders Only [facility] [address] Main Bldg, 9th [place] [address] Stella Clark, SHANNEN Small cell carcinoma, NOS of upper lobe, lung <Right> (Primary Dx) 03/06/2023 Nurse Triage [facility] SUFLDesiree PHYSICIAN [facility] [place] [address] Aletha Peña APRN 01/22/2023 4:00 PM CDT Follow-Up [facility] [address] [place] [address] Main Bldg, 9th [place] [address] Henrique Plasencia MD Small cell carcinoma, NOS of upper lobe, lung <Right> 01/22/2023 9:13 AM CDT - 01/22/2023 11:59 PM CDT Hospital Encounter [facility] [address] [place] [address] Main Bldg, [place] [address] Grey Campbell, PA Small cell carcinoma, NOS of upper lobe, lung <Right> Discharge Disposition: Home 01/22/2023 8:25 AM CDT - 01/22/2023 9:12 AM CDT Hospital Encounter Main CT IMAGING [address] [facility] Main Bldg, 3rd [place] [address] Grey Campbell PA Small cell carcinoma, NOS of upper lobe, lung <Right> Discharge Disposition: Home 01/22/2023 Travel 01/08/2023 Telephone [facility] Main Bldg, 9th [place] [address] Daisy Shaffer, RN 12/25/2022 Telephone [facility] [address] [facility] Main Bldg, 9th [place] [address] Enriqueat Gonzalez, RN 12/24/2022 Telephone [facility] [address] Main Bldg, 9th [place] [address] Lisa Acevedo RN 12/20/2022 Telephone [facility] [address] [facility] Main Bldg, 9th [place] [address] MamadouZulema zavala Desiree, LUNCHROOM MONITOR 12/14/2022 Documentation [facility] [address] [facility] Main Bldg, 9th [place] [address] Henrique Plasencia MD 12/13/2022 Orders Only [facility] [address] [facility] Main Bldg, 9th [place] [address] Grey Campbell, [place] Small cell carcinoma, NOS of upper lobe, lung <Right> (Primary Dx) 11/19/2022 Orders Only [facility] Main dg, 9th [place] [address] Alex Amor, PharmD after 09/28/2022 Immunizations Name Administration Dates Next Due Influenza Split High Dose Preservative Free IM 0 03/29/2020 Pneumococcal Polysaccharide 03/24/2022 Zoster Recombinant 03/29/2020 Surgical History Surgery Date Site/Laterality Comments KS EGD BALLOON DILATION ESOPHAGUS <30 MM DIAM 09/29/2020 Esophagus/N/A Procedure: UPPER GASTROINTESTINAL ENDOSCOPY WITH BALLOON DILATION OF ESOPHAGUS; Surgeon: Owen Leonard MD; Location: MAIN ENDOSCOPY; Service: GASTROENTEROLOGY KS EGD PERCUTANEOUS PLACEMENT GASTROSTOMY TUBE 09/29/2020 Abdomen/N/A Procedure: UPPER GASTROINTESTINAL ENDOSCOPY WITH DIRECTED PLACEMENT OF PERCUTANEOUS (PEG) GASTROSTOMY TUBE; Surgeon: Owen Leonard MD; Location: MAIN ENDOSCOPY; Service: GASTROENTEROLOGY KS BRNCHSC W/BRNCL ALVEOLAR LAVAGE 10/23/2020 N/A Procedure: FLEXIBLE BRONCHOSCOPY WITH BRONCHIAL ALVEOLAR LAVAGE; Surgeon: Krys Brewer MD; Location: MAIN PULM PROC; Service: PULMONARY KS PERQ REPLACEMENT GTUBE NOT REQ REVJ GSTRST TRC 05/21/2021 N/A Procedure: REPLACEMENT OF GASTROSTOMY TUBE, PERCUTANEOUS, INCLUDES REMOVAL, WHEN PERFORMED, WITHOUT IMAGING OR ENDOSCOPIC GUIDANCE; NOT REQUIRING REVISION OF GASTROSTOMY TRACT; Surgeon: Neha Tobin MD; Location: MAIN ENDOSCOPY; Service: GASTROENTEROLOGY KS EGD TRANSORAL BIOPSY SINGLE/MULTIPLE 10/19/2021 Esophagus/N/A Procedure: [...] Date Smoking Tobacco: Former Cigarettes 1.5 1 2019 Smokeless Tobacco: Never Tobacco Cessation:Counseling Given: [...] Sign Reading Time Taken Comments Blood Pressure 116/74 09/12/2023 1:33 PM CDT Pulse 87 09/12/2023 1:33 PM CDT Temperature 36.5 C (97.7 F) 09/12/2023 1 :33 PM CDT Respiratory Rate 18 09/12/2023 1:33 PM CDT Oxygen Saturation 97% 09/12/2023 1:3 3 PM CDT 5 litters of oxygen Inhaled Oxygen Concentration - - Weight 45.8 kg (100 lb 15.5 oz) 09/12/2023 1:33 PM CDT Height - - Body Mass Index 17.24 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[employer] Plan of Treatment Upcoming Encounters Date Type Department Care Team Description 11/21/2023 9:15 AM CDT Appointment [facility] [address] [place] [address] Stella Clark, LUNCHROOM MONITOR [address] [place] [address] 11/21/2023 10:00 AM CDT Ancillary Procedure PET Imaging [address] [place] [address] Clinic, 6th [place] [address] Stella Clark, SHANNEN [address] [place] [address] 11/21/2023 4:00 PM CDT Follow-Up [facility] [address] [facility] Main dg, 9th [place] [address] Henrique Plasencia MD [address] [place] [address] Health Maintenance Due Date Last Done Comments COVID-19 Vaccine (#1) 11/23/1960 Influenza Vaccine 02/28/2023 03/29/2020 Procedures Procedure Name Priority Date/Time Associated Diagnosis Comments CT CHEST W CONTRAST Routine 09/12/2023 1 1:24 AM CDT Small cell carcinoma, NOS of upper lobe, lung <Right> POC CREATININE Routine 09/12/2023 10:55 AM CDT .CBC Routine 09/12/2023 10:54 AM CDT Small cell carcinoma, NOS of upper lobe, lung <Right> URIC ACID Routine 09/12/2023 10:54 AM CDT Small cell carcinoma, NOS of upper lobe, lung <Right> MAGNESIUM LEVEL Routine 09/12/2023 10:54 AM CDT Small cell carcinoma, NOS of upper lobe, lung <Right> COMPREHENSIVE METABOLIC PANEL Routine 09/12/2023 10:54 AM CDT Small cell carcinoma, NOS of upper lobe, lung <Right> COMPLETE BLOOD COUNT W/ DIFFERENTIAL Routine 09/12/2023 10:54 AM CDT Small cell carcinoma, NOS of upper lobe, lung <Right> CT CHEST W CONTRAST Routine 06/27/2023 1 0:49 AM SALES MA[employer]GER [employer] Small cell carcinoma, NOS of upper lobe, lung <Right> .CBC Routine 06/27/2023 8:34 AM SALES [employer] Small cell carcinoma, NOS of upper lobe, lung <Right> URIC ACID Routine 06/27/2023 8:34 AM SALES [employer] Small cell carcinoma, NOS of upper lobe, lung <Right> MAGNESIUM LEVEL Routine 06/27/2023 8:34 AM SALES [employer] Small cell carcinoma, NOS of upper lobe, lung <Right> COMPREHENSIVE METABOLIC PANEL Routine 06/27/2023 8:34 AM SALES MA[employer] Small cell carcinoma, NOS of upper lobe, lung <Right> COMPLETE BLOOD COUNT W/ DIFFERENTIAL Routine 06/27/2023 8:34 AM SALES [employer] Small cell carcinoma, NOS of upper lobe, [...] POC CREATININE Routine 01/22/2023 9:19 AM CDT after 09/28/2022 Results * CT Chest with Contrast (09/12/2023 11:24 AM CDT) Only the most recent of3 resultswithin the time period is included. Anatomical Region Laterality Modality Chest Computed Tomogra phy 09/12/2023 12:2 7 PM CDT Impressions 09/12/2023 1:21 PM CDT Posttreatment changes in the right upper lobe. The opacity in the right apex shows more soft tissue component that can be secondary to superimposed infectious/ inflammatory process. Follow-up in 4-6 weeks is recommended to evaluate for persistent or resolution of increased soft tissue component. No new nodules or adenopathy. ACTIONABLE ITEMS/RECOMMENDATIONS*: None. Narrative 09/12/2023 1:21 PM CDT FULL RESULT: Examination: CT CHEST W CONTRAST on 09/12/2023 11:24 AM. Clinical History: Small cell carcinoma, NOS of upper lobe, lung <Right> Indication: Cancer restaging (treatment completion), Lung cancer recurrence suspected Comparison: 06/27/2023, 01/22/2023, 09/12/2022 Technique: CT of the chest is performed with intravenous contrast Findings: Lungs/Airways/Pleura: Extensive emphysematous changes of the lungs. Stable dense consolidation in the periphery of the right upper lobe on image 33 associated with central area of cavitation consistent with post radiation changes. The opacity in the right apex on image 17 is again identified, measuring 2.3 x 1.2 cm, previously 2.3 x 0.8 cm. There has been increase of soft tissue within this opacity, image 17 compared to image 19 (06/27/2023). No new nodules or enlarging nodules suspicious for metastases. There are some few small nodules measuring less than 5 mm, stable from 06/07/2022. Patchy and nodular opacities identified as new on the previous study have resolved. No pleural effusion. Neck/Mediastinum/Nodes/Heart: Stable mediastinal lymph nodes measuring up to 0.8 cm. No hilar adenopathy. Mild coronary artery calcification is present. Upper abdomen: No focal lesions in the spleen. There is pneumobilia. No focal lesions in the adrenal glands. Small hiatal hernia. Bones/Soft Tissues: There are degenerative changes of the spine. Procedure Note Bonny Chadwick MD - 09/12/2023 FULL RESULT: Examination: CT CHEST W CONTRAST on 09/12/2023 11:24 AM. Clinical History: Small cell carcinoma, NOS of upper lobe, lung <Right> Indication: Cancer restaging (treatment completion), Lung cancerrecurrence suspected Comparison: 06/27/2023, 01/22/2023, 09/12/2022 Technique: CT of the chest is performed with intravenous contrast Findings: Lungs/Airways/Pleura: Extensive emphysematous changes of the lungs. Stable dense consolidation in the periphery of the right upper lobe onimage 33 associated with central area of cavitation consistent with postradiation changes. The opacity in the right apex on image 17 is again identified, measuring2.3 x 1.2 cm, previously 2.3 x 0.8 cm. There has been increase of softtissue within this opacity, image 17 compared to image 19 (06/27/2023). No new nodules or enlarging nodules suspicious for metastases. There aresome few small nodules measuring less than 5 mm, stable from 06/07/2022. Patchy and nodular opacities identified as new on the previous study haveresolved. No pleural effusion. Neck/Mediastinum/Nodes/Heart: Stable mediastinal lymph nodes measuring upto 0.8 cm. No hilar adenopathy. Mild coronary artery calcification ispresent. Upper abdomen: No focal lesions in the spleen. There is pneumobilia. Nofocal lesions in the adrenal glands. Small hiatal hernia. Bones/Soft Tissues: There are degenerative changes of the spine. IMPRESSION: Posttreatment changes in the right upper lobe. The opacity in the right apex shows more soft tissue component that can besecondary to superimposed infectious/ inflammatory process. Follow-up in4-6 weeks is recommended to evaluate for persistent or resolution ofincreased soft tissue component. No new nodules or adenopathy. ACTIONABLE ITEMS/RECOMMENDATIONS*: None. Stella Clark APRN G CT ORDERABLES * POC Creatinine (09/12/2023 10:55 AM CDT) Only the most recent of2 resultswithin the time period is included. POC Creatinine 0.6 0.6 - 1.3 mg/dL 09/12/2023 10:57 AM CDT [facility] Comment:Medications, especia lly hydroxyurea or supplements, such as ascorbate, can interfere with test results causing a falsely and significantly higher result than expected. If a problem is suspected with a patient's result, a sample should be sent to the laboratory for confirmatory testing. POC eGFR 105 >=60 mL/min/1.7 3 sq. m 09/12/2023 10:57 AM CDT [facility] Comment: The eGFRcr is calculated with [...] nor G2 fulfill criteria for CKD. Blood 09/12/2023 10:5 5 AM CDT 09/12/2023 10:57 AM CDT Narrative [facility] - 09/12/2023 10:57 AM CDT Method description: The i-STAT is an analyzer [...] measure analyte concentration by an electrochemical assay. Stella Clark APRN POCT ORDERABLES - DEVICE [facility] Unless otherwise noted, all lab tests performed by: Division of Pathology and Laboratory Medicine [address] [place] [address] [place] [address] * (ABNORMAL) .CBC (09/12/2023 10:54 AM CDT) Only the most recent of3 resultswithin the time period is included. [facility] White Blood Cell 11.2(H) 4.1 - 10.5 K/uL 09/12/2023 11:28 AM [facility] Red Blood Cell 4.07(L) 4.30 - 6.04 M/uL 09/12/2023 11:28 AM [facility] Hemoglobin 11.7(L) 13.3 - 17.4 g/dL 09/12/2023 11:28 AM [facility] Hematocrit 36.3(L) 39.5 - 51.8 % 09/12/2023 11:28 AM [facility] Mean Cell Volume 89 82 - 99 fL 09/12/2023 11:28 AM [facility] Mean Cell Hemoglobin 28.7 26.6 - 33.2 pg 09/12/2023 11:28 AM [facility] Mean Cell Hemoglobin Concentration 32.2 31.1 - 35.2 g/dL 09/12/2023 11:28 AM [facility] RDW-SD 52.0(H) 37.5 - 49.7 fL 09/12/2023 11:28 AM [facility] Red Cell Diameter Width 16.0(H) 11.6 - 15.5 % 09/12/2023 11:28 AM [facility] Platelet 218 160 - 397 K/uL 09/12/2023 11:28 AM [facility] Mean Platelet Volume 10.3 9.1 - 12.6 fL 09/12/2023 11:28 AM [facility] INRBC 0.0 0.0 - 0.1 /100 WBC 09/12/2023 11:28 AM [facility] Comment: The INRBC (instrument NRBC) value reflects the enumeration of nucleated red blood cells contained in a 200uL sample of whole blood analyzed by the instrument. This value may differ from the NRBC value reported in a manual differential, which is based on a 100 cell differential. Neutrophil % 68.7 43.2 - 72.7 % 09/12/2023 11:28 AM [facility] Lymphocyte % 22.2 16.8 - 46.2 % 09/12/2023 11:28 AM CDT [facility] Monocyte % 5.4 5.1 - 12.5 % 09/12/2023 11:28 AM CDT [facility] Eosinophil % 3.0 0.4 - 6.3 % 09/12/2023 11:28 AM CDT [facility] Basophil % 0.5 0.2 - 1.4 % 09/12/2023 11:28 AM CDT [facility] IGRE % 0.2 0.1 - 1.5 % 09/12/2023 11:28 AM CDT [facility] Comment:The IGRE% includes M etamyelocytes, Myelocytes and Promyelocytes. Neutrophil Abs 7.70(H) 1.95 - 7.25 K/uL 09/12/2023 11:28 AM CDT [facility] Lymphocyte Abs 2.49 1.01 - 3.24 K/uL 09/12/2023 11:28 AM CDT [facility] Monocyte Abs 0.61 0.24 - 0.85 K/uL 09/12/2023 11:28 AM CDT [facility] Eosinophil Abs 0.34 0.02 - 0.50 K/uL 09/12/2023 11:28 AM CDT [facility] Basophil Abs 0.06 0.02 - 0.09 K/uL 09/12/2023 11:28 AM CDT [facility] IG Abs 0.02 0.01 - 0.12 K/uL 09/12/2023 11:28 AM CDT [facility] Blood Peripheral blood specimen / Unknown Peripheral Catheter / Unknown 09/12/2023 10:54 AM CDT 09/12/2023 11:14 AM CDT Stella Clark APRN LAB BLOOD ORDERABL ES [facility] Unless otherwise noted, all lab tests performed by: Division of Pathology and Laboratory Medicine [address] [place] [id number] * Comprehensive Metabolic Panel (09/12/2023 10:54 AM CDT) Only the most recent of2 resultswithin the time period is included. Pathologist [facility] Bilirubin Total <0.3 0.0 - 1.2 mg/dL 09/12/2023 12:03 PM [facility] Comment: Direct and indirect bilirubin will not be reported when Total bilirubin result is <0.3 mg/dL Indocyanine Green (ICG) may cause falsely elevated bilirubin results. Total and direct bilirubin must not be measured from samples containing indocyanine green. False elevation of total bilirubin can be seen in patients with IgG concentrations above 28 g/L. Bilirubin Direct 09/12/19 24 12:03 PM T [facility] Comment: Direct and indirect bilirubin will not be reported when Total bilirubin result is <0.3 mg/dL Indocyanine Green (ICG) may cause falsely elevated bilirubin results. Total and direct bilirubin must not be measured from samples containing indocyanine green. Bilirubin Indirect 2023 12:03 PM [facility] Comment:Direct and indirect bilirubin will not be reported when Total bilirubin result is <0.3 mg/dL eGFR 102 >=60 mL/min/1. 73 sq. m 09/12/2023 12:03 PM [facility] Comment: The eGFRcr is calculated with [...] G2 fulfill criteria for CKD. Tot Protein 6.7 6.4 - 8.3 gm/dL 09/12/2023 12:03 PM [facility] Calcium Level Total 9.3 8.2 - 10.2 mg/dL 09/12/2023 12:03 PM T [facility] Alkaline Phosphatase 89 40 - 129 U/L 09/12/2023 12:03 PM [facility] Albumin Level 3.7 3.5 - 5.2 gm/dL 09/12/2023 12:03 PM T [facility] AST 16 <=40 U/L 09/12/2023 12:03 PM T [facility] ALT 8 <=41 U/L 09/12/2023 12:03 PM T [facility] Sodium Level 140 136 - 145 mmol/L 09/12/2023 12:03 PM [facility] Potassium Level 4.0 3.4 - 4.5 mmol/L 09/12/2023 12:03 PM [facility] Chloride 104 98 - 107 mmol/L 09/12/2023 12:03 PM [facility] CO2 28 22 - 29 mmol/L 09/12/2023 12:03 PM [facility] Anion Gap 8 4 - 14 mmol/L 09/12/2023 12:03 PM T [facility] Creatinine 0.67 0.67 - 1.17 mg/dL 09/12/2023 12:03 PM [facility] BUN 8 6 - 23 mg/dL 09/12/2023 12:03 PM [facility] Glucose Level 81 70 - 99 mg/dL 09/12/2023 12:03 PM [facility] Comment: Effective 01/24/16, the glucose reference intervals have been updated based on [place] Diabetes Association guidelines (Standards of Medical Care in Diabetes 2016. Diabetes Care 2016; 39: S13-S22). Fasting blood glucose: Normal: 70-99 mg/dL Impaired fasting glucose (increased risk for diabetes or pre-diabetes): 100-125 mg/dL Diabetes mellitus: >/=126 mg/dL Random blood glucose: Normal: 70-199 mg/dL Note: Random glucose >100 mg/dL is associated with increased risk for diabetes. Blood Peripheral blood specimen / Unknown Peripheral Catheter / Unknown 09/12/2023 10:54 AM CDT 09/12/2023 11:14 AM CDT Stella Clark APRN LAB BLOOD ORDERABL ES Performing Organization Address City/[facility] Co de Phone Number [facility] Unless otherwise noted, all lab tests performed by: Division of Pathology and Laboratory Medicine [address] [place] [phone] * Uric Acid (09/12/2023 10:54 AM CDT) Only the most recent of2 resultswithin the time period is included. Uric Acid 3.4 3.4 - 7.0 mg/dL 09/12/2023 12:03 PM CDT [facility] Blood Peripheral blood specimen / Unknown Peripheral Catheter / Unknown 09/12/2023 10:54 AM CDT 09/12/2023 11:14 AM CDT Stella Clark APRN LAB BLOOD ORDERABL ES Performing Organization Address [facility] de Phone Number [facility] Unless otherwise noted, all lab tests performed by: Division of Pathology and Laboratory Medicine [address] [place] [phone] * Magnesium Level (09/12/2023 10:54 AM CDT) Only the most recent of2 resultswithin the time period is included. Magnesium Level 1.9 1.6 - 2.6 mg/dL 09/12/2023 12:03 PM CDT [facility] Blood Peripheral blood specimen / Unknown Peripheral Catheter / Unknown 09/12/2023 10:54 AM CDT 09/12/2023 11:14 AM CDT Stella Clark APRN LAB BLOOD ORDERABL ES Performing Organization Address City/[facility] Co de Phone Number [facility] Unless otherwise noted, all lab tests performed by: Division of Pathology and Laboratory Medicine [address] [place] [phone] * .Serum Creatinine (01/22/2023 9:24 AM CDT) Creatinine 0.68 0.67 - 1.17 mg/dL [facility] Blood 01/22/2023 9:24 AM CDT 01/22/2023 10:28 AM CDT [facility] LAB BLOOD ORDERAB LES Performing Organization Address City/[facility]/ZIP Co de Phone Number [facility] Unless otherwise noted, all lab tests performed by: Division of Pathology and Laboratory Medicine [address] [place] [phone] * Glomerular Filtration Rate (01/22/2023 9:24 AM CDT) Pathologist [facility] eGFR 101 >=60 mL/min/1.7 3 sq. m [facility] Comment: The eGFRcr is calculated with the [...] CDT [facility] LAB BLOOD ORDERAB LES [facility] Unless otherwise noted, all lab tests performed by: Division of Pathology and Laboratory Medicine [address] [place] [address] [phone] * Fractionated Bilirubin (01/22/2023 9:24 AM CDT) Pathologist [facility] Bili Total <0.3 <=1.2 mg/dL [facility] Comment: Direct and indirect bilirubin will not [...] CDT [facility] LAB BLOOD ORDERAB LES [facility] Unless otherwise noted, all lab tests performed by: Division of Pathology and Laboratory Medicine [address] [place] [address] [phone] * Differential (01/22/2023 9:24 AM CDT) [facility] Neutrophil % 65.7 43.2 - 72.7 % [facility] Lymphocyte % 24.7 16.8 - 46.2 % [facility] Monocyte % 6.7 5.1 - 12.5 % [facility] Eosinophil % 2.1 0.4 - 6.3 % [facility] Basophil % 0.5 0.2 - 1.4 % [facility] IGRE % 0.3 0.1 - 1.5 % [facility] Comment:IGRE % count include s Metamyelocytes, Myelocytes, and Promyelocytes. Neutrophil Abs 6.82 1.95 - 7.25 K/uL [facility] Lymphocyte Abs 2.56 1.01 - 3.24 K/uL [facility] Monocyte Abs 0.70 0.24 - 0.85 K/uL [facility] Eosinophil Abs 0.22 0.02 - 0.50 K/uL [facility] Basophil Abs 0.05 0.02 - 0.09 K/uL [facility] IG Abs 0.03 0.01 - 0.12 K/uL [facility] Blood 01/22/2023 9:24 AM CDT 01/22/2023 10:15 AM CDT [facility] LAB BLOOD ORDERAB LES Performing Organization Address City/[facility] Co de Phone Number [facility] Unless otherwise noted, all lab tests performed by: Division of Pathology and Laboratory Medicine [address] [place] [address] [phone] * BUN (01/22/2023 9:24 AM CDT) BUN 9 6 - 23 mg/dL [facility] Blood 01/22/2023 9:24 AM CDT 01/22/2023 10:28 AM CDT [facility] LAB BLOOD ORDERAB LES Performing Organization Address [facility] de Phone Number [facility] Unless otherwise noted, all lab tests performed by: Division of Pathology and Laboratory Medicine [address] [place] [address] [phone] * ALT (01/22/2023 9:24 AM CDT) ALT <5 <=41 U/L [place] [facility] Blood 01/22/2023 9:24 AM CDT 01/22/2023 10:28 AM CDT [facility] LAB BLOOD ORDERAB LES Performing Organization Address [facility] de Phone Number [facility] Unless otherwise noted, all lab tests performed by: Division of Pathology and Laboratory Medicine [address] [place] [address] [phone] * Aspartate Aminotransferase (01/22/2023 9:24 AM CDT) AST 12 <=40 U/L [facility] Blood 01/22/2023 9:24 AM CDT 01/22/2023 10:28 AM CDT [facility] LAB BLOOD ORDERAB LES Performing Organization Address City/[facility] Co de Phone Number [facility] Unless otherwise noted, all lab tests performed by: Division of Pathology and Laboratory Medicine [address] [place] [address] [phone] * Total Protein (01/22/2023 9:24 AM CDT) Total Protein 6.7 6.4 - 8.3 g/dL [facility] Blood 01/22/2023 9:24 AM CDT 01/22/2023 10:28 AM CDT [facility] LAB BLOOD ORDERAB LES Performing Organization Address City/[facility]/ZIP Co de Phone Number [facility] Unless otherwise noted, all lab tests performed by: Division of Pathology and Laboratory Medicine [address] [place] [address] [phone] * Alkaline Phosphatase (01/22/2023 9:24 AM CDT) Pathologist [facility] Alk Phos 75 40 - 129 U/L [facility] Blood 01/22/2023 9:24 AM CDT 01/22/2023 10:28 AM CDT [facility] LAB BLOOD ORDERAB LES Performing Organization Address City/[facility] Co de Phone Number [facility] Unless otherwise noted, all lab tests performed by: Division of Pathology and Laboratory Medicine [address] [place] [address] [phone] * Glucose Level (01/22/2023 9:24 AM CDT) Glucose Level 74 70 - 99 mg/dL [facility] Comment: Effective 01/24/16, the glucose reference intervals have been updated based on [place] Diabetes Association guidelines (Standards of Medical Care [...] LAB BLOOD ORDERAB LES Performing Organization Address City/[facility] Co de Phone Number [facility] Unless otherwise noted, all lab tests performed by: Division of Pathology and Laboratory Medicine [address] [place] [address] [phone] * Calcium Level (01/22/2023 9:24 AM CDT) Calcium Lvl 9.1 8.4 - 10.2 mg/dL [facility] Blood 01/22/2023 9:24 AM CDT 01/22/2023 10:28 AM CDT [facility] LAB BLOOD ORDERAB LES Performing Organization Address [facility] de Phone Number [facility] Unless otherwise noted, all lab tests performed by: Division of Pathology and Laboratory Medicine [address] [place] [address] [phone] * Albumin Level (01/22/2023 9:24 AM CDT) Albumin Lvl 3.8 3.5 - 5.2 gm/dL [facility] Blood 01/22/2023 9:24 AM CDT 01/22/2023 10:28 AM CDT [facility] LAB BLOOD ORDERAB LES Performing Organization Address City/[facility] Co de Phone Number [facility] Unless otherwise noted, all lab tests performed by: Division of Pathology and Laboratory Medicine [address] [place] [address] [phone] * (ABNORMAL) Electrolyte Panel (01/22/2023 9:24 AM CDT) Sodium Lvl 136 136 - 145 mEq/L [facility] Potassium Lvl 3.5 3.5 - 5.1 mEq/L [facility] Chloride 100 98 - 107 mEq/L [facility] CO2 32(H) 22 - 29 mEq/L [facility] Anion Gap 4 4 - 14 mEq/L [facility] Blood 01/22/2023 9:24 AM CDT 01/22/2023 10:28 AM CDT [facility] LAB BLOOD ORDERAB LES [facility] Unless otherwise noted, all lab tests performed by: Division of Pathology and Laboratory Medicine [address] [place] [address] [phone] after 09/28/2022 Advance Directives Latest Code Status on File [...] 3:56 PM 01/19/2021 6:53 PM Care Teams Slate Handler Relationship Specialty Start Date End Date Carl Jones MD [address] [facility] [address] [place] [phone] PCP - External Primary Care Provider Family Practice 02/14/20 Henrique Plasencia MD [address] [place] [address] [phone] PCP - General Thoracic Medicine 04/21/20 Kang Piedra MD [address] [place] [address] [phone] PCP - External Follow Up C Dermatology 06/12/20 Mary Beth Hinson, [facility] [address] [place] [address] [phone] Speech Language Pathologist Speech Pathology 04/16/21 Clay Hernandez MD [address] [place] [address] [phone] Consulting Physician Pulmonary Medicine 03/31/20 Kang Monreal MD [address] [place] [address] [phone] Consulting Physician Hematology and Oncology 04/16/21 Patrick Huerta MD [address] [place] [address] [phone] Consulting Physician Dermatology 05/18/20
--- NOTE | 2023-09-28 13:13 | EDPHYS ---
Physician Documentation [facility] Name: Chato Moreno IV Age: 67 yrs Sex: Male : 1955 Arrival Date: 09/28/2023 Time: 12:39 Bed 11 Private MD: ED Physician Beth Nicolas HPI: 09/27 13:09 This 67 yrs old Male presents to ER via EMS with complaints of Nose Problem. sp3 13:09 67-year-old male with history of A-fib, COPD, emphysema, prior lung cancer now presents sp3 to the ED with chief complaint right nose/nostril skin pain. Patient states he has had "an infection and redness there" for several days and he saw his PCP who prescribed Bactroban ointment for topical application. Patient states that it has not gotten better and has in fact gotten a little worse and he is requesting oral medication. He denies any other symptoms including headache, fever, URI symptoms, throat pain, neck pain, difficulty swallowing, difficulty breathing, chest pain, shortness of breath, rash anywhere else, syncope, near syncope, or any other signs or symptoms on ROS at this time.. Historical: - Allergies: 12:49 No Known Allergies; as6 - PMHx: 12:49 Atrial fibrillation; COPD; Emphysema; Lung Cancer; Pneumonia; as6 - PSHx: 12:49 Cholecystectomy; as6 - Immunization history:: Adult Immunizations up to date. - Social history:: Smoking status: Patient reports the use of cigarette tobacco products, smokes one pack cigarettes per day. ROS: 13:10 Constitutional: Negative for fever, chills, and weight loss, Eyes: Negative for injury, sp3 pain, redness, and discharge, ENT: Negative for injury, pain, and discharge, Neck: Negative for injury, pain, and swelling, Cardiovascular: Negative for chest pain, palpitations, and edema, Respiratory: Negative for shortness of breath, cough, wheezing, and pleuritic chest pain, Abdomen/GI: Negative for abdominal pain, nausea, vomiting, diarrhea, and constipation, Back: Negative for injury and pain, MS/Extremity: Negative for injury and deformity, Neuro: Negative for headache, weakness, numbness, tingling, and seizure, Psych: Negative for depression, anxiety, suicide ideation, homicidal ideation, and hallucinations, Allergy/Immunology: Negative for hives, rash, and allergies, Endocrine: Negative for neck swelling, polydipsia, polyuria, polyphagia, and marked weight changes, 13:10 All other systems are negative, Exam: 13:10 Constitutional: This is a well developed, well nourished patient who is awake, alert, sp3 and in no acute distress. Head/Face: Normocephalic, atraumatic. Eyes: Pupils equal round and reactive to light, extra-ocular motions intact. Lids and lashes normal. Conjunctiva and sclera are non-icteric and not injected. Cornea within normal limits. Periorbital areas with no swelling, redness, or edema. ENT: Nares patent. No nasal discharge, no septal abnormalities noted. External auditory canals are clear. Oropharynx with no redness, swelling, or masses, exudates, or evidence of obstruction, uvula midline. Mucous membranes moist. Neck: Trachea midline, no thyromegaly or masses palpated, and no cervical lymphadenopathy. Supple, full range of motion without nuchal rigidity, or vertebral point tenderness. No Meningismus. Chest/axilla: Normal chest wall appearance and motion. Nontender with no deformity. No lesions are appreciated. Cardiovascular: Regular rate and rhythm with a normal S1 and S2. No gallops, murmurs, or rubs. Normal PMI, no JVD. No pulse deficits. Respiratory: Lungs have equal breath sounds bilaterally, clear to auscultation and percussion. No rales, rhonchi or wheezes noted. No increased work of breathing, no retractions or nasal flaring. Abdomen/GI: Soft, non-tender, with normal bowel sounds. No distension or tympany. No guarding or rebound. No evidence of tenderness throughout. Back: No spinal tenderness. No costovertebral tenderness. Full range of motion. MS/ Extremity: Pulses equal, no cyanosis. Neurovascular intact. Full, normal range of motion. Neuro: Awake and alert, GCS 15, oriented to person, place, time, and situation. Cranial nerves II-XII grossly intact. Motor strength 5/5 in all extremities. Sensory grossly intact. Cerebellar exam normal. Normal gait. Psych: Awake, alert, with orientation to person, place and time. Behavior, mood, and affect are within normal limits. 13:10 Skin: Patient has a small area of cellulitis with possible early abscess on the inferior lateral part of his right nostril. No area of fluctuance for potential I\\T\\D noted. Patient has nasal cannula that he wears at baseline which may be a contributing factor however the cannula is more medial than where his infection currently is.. Vital Signs: 12:48 BP 108 / 69; Pulse 78; Resp 18 S; Temp 98; Pulse Ox 100% on 4 lpm NC; Weight 47.63 kg as6 (R); Height 5 ft. 6 in. (R); Pain 10/10; 13:15 BP 114 / 75; Pulse 69; Resp 18; Pulse Ox 100% on R/A; db 12:48 Body Mass Index 16.95 (47.63 kg, 167.64 cm) as6 12:48 Pain Scale: Adult as6 MDM: 13:11 Data reviewed: vital signs, nurses notes. ED course: 67-year-old male with cellulitis sp3 versus early abscess on the right nostril on the inferior portion. I\\T\\D not indicated. We will add Augmentin to his regimen and tell him to continue taking the Bactroban ointment. Will safely discharge him home and follow-up to PCP.. 13:12 Patient medically screened. sp3 Administered Medications: 13:22 Drug: Amoxicillin-Clavulanate PO 875 mg PO once Route: PO; db 13:30 Follow up: Response: No adverse reaction db Disposition Summary: 09/28/23 13:12 Discharge Ordered Notes: Location: Home sp3 Condition: Stable sp3 Diagnosis - Cellulitis sp3 Followup: sp3 - With: Private Physician - When: Upon discharge from the Emergency Department - Reason: Continuance of care Discharge Instructions: - Discharge Summary Sheet sp3 - Cellulitis, Adult sp3 Forms: - Medication Reconciliation Form sp3 - Thank You Letter sp3 - Antibiotic Education sp3 - Prescription Opioid Use sp3 - Patient Portal Instructions sp3 - Leadership Thank You Letter sp3 Prescriptions: - Augmentin 875-125 mg Oral Tablet - take 1 tablet ORAL route every 12 hours for 10 days; 20 tablet; Refills: 0, sp3 Product Selection Permitted Signatures: Beth Nicolas MD MD sp3 Nilson Aguilera RN RN as6 Akiko Jaeger RN RN db
--- NOTE | 2023-09-28 13:13 | ER ---
Nurse's Notes [facility] Name: Chato Moreno IV Age: 67 yrs Sex: Male : 1955 Arrival Date: 09/28/2023 Time: 12:39 Bed 11 Private MD: Diagnosis: Cellulitis Presentation: 09/27 12:49 Chief complaint: Patient states: "I have some sort of bump near my right nostril and as6 it's been killing me. I went to my doctor and they gave me antibiotic cream but it isn't helping" EMS states: called out for "nose problem". Coronavirus screen: At this time, the client does not indicate any symptoms associated with coronavirus-19. Ebola Screen: No symptoms or risks identified at this time. Initial Sepsis Screen: Does the patient meet any 2 criteria? No. Patient's initial sepsis screen is negative. Does the patient have a suspected source of infection? No. Patient's initial sepsis screen is negative. Risk Assessment: Do you want to hurt yourself or someone else? Patient reports no desire to harm self or others. Onset of symptoms was September 18, 2023. 12:49 Acuity: STEWART 4 as6 12:49 Method Of Arrival: EMS: [facility] as6 Triage Assessment: 12:48 General: Appears in no apparent distress. slender, Behavior is calm, cooperative. Pain: as6 Complains of pain in right nostril. Historical: - Allergies: 12:49 No Known Allergies; as6 - PMHx: 12:49 Atrial fibrillation; COPD; Emphysema; Lung Cancer; Pneumonia; as6 - PSHx: 12:49 Cholecystectomy; as6 - Immunization history:: Adult Immunizations up to date. - Social history:: Smoking status: Patient reports the use of cigarette tobacco products, smokes one pack cigarettes per day. Screenin:25 [facility] ED Fall Risk Assessment (Adult) History of falling in the last 3 months, db including since admission No falls in past 3 months (0 pts) Confusion or Disorientation No (0 pts) Intoxicated or Sedated No (0 pts) Impaired Gait No (0 pts) Mobility Assist Device Used No (0 pt) Altered Elimination No (0 pt) Score/Fall Risk Level 0 - 2 = Low Risk Oriented to surroundings, Maintained a safe environment. Abuse screen: Denies threats or abuse. Denies injuries from another. Nutritional screening: No deficits noted. Tuberculosis screening: No symptoms or risk factors identified. Assessment: 13:00 Reassessment: Patient appears in no apparent distress at this time. Patient and/or db family updated on plan of care and expected duration. Pain level reassessed. Patient is alert, oriented x 3, equal unlabored respirations, skin warm/dry/pink. General: Appears in no apparent distress. comfortable, Behavior is calm, cooperative. Neuro: Level of Consciousness is awake, alert, obeys commands, Oriented to person, place, time, situation. Respiratory: Airway is patent Respiratory effort is even, unlabored, Respiratory pattern is regular, symmetrical, ON HOME O2. 13:20 Reassessment: PATIENT CALLED TRANSPORT FOR RIDE. ETA 3 HOURS. db Vital Signs: 12:48 BP 108 / 69; Pulse 78; Resp 18 S; Temp 98; Pulse Ox 100% on 4 lpm NC; Weight 47.63 kg as6 (R); Height 5 ft. 6 in. (R); Pain 10/10; 13:15 BP 114 / 75; Pulse 69; Resp 18; Pulse Ox 100% on R/A; db 12:48 Body Mass Index 16.95 (47.63 kg, 167.64 cm) as6 12:48 Pain Scale: Adult as6 ED Course: 12:48 Patient arrived in ED. as6 12:48 Arm band placed on. as6 12:49 Beth Nicolas MD is Attending Physician. sp3 12:51 Triage completed. as6 13:18 Akiko Jaeger, RN is Primary Nurse. db 13:20 No provider procedures requiring assistance completed. db 13:25 Patient has correct armband on for positive identification. Bed in low position. Call db light in reach. Side rails up X 1. Provided Education on: DISCHARGE. Pulse ox on. NIBP on. Warm blanket given. 13:25 Patient did not have IV access during this emergency room visit. db Administered Medications: 13:22 Drug: Amoxicillin-Clavulanate PO 875 mg PO once Route: PO; db 13:30 Follow up: Response: No adverse reaction db Medication: 13:25 VIS not applicable for this client. db Outcome: 13:12 Discharge ordered by . sp3 13:25 Discharged to home via wheelchair, WAITING IN LOBBY FOR RIDE db 13:25 Condition: stable 13:25 Discharge instructions given to patient, family, Instructed on discharge instructions, follow up and referral plans. Prescriptions given X 1, 13:42 Patient left the ED. db Signatures: eBth Nicolas MD MD sp3 Nilson Aguilera, RN RN as6 Akiko Jaeger RN RN db
[2023-09-28] MEDS ORDERED: AMOX/K CLAV 875 MG TAB ONE (13:16)
[2023-09-28 15:55] VITALS: BP 114/75; TEMP 98; O2SAT 100
== END 2023-09-28 13:42 | disposition home or self-care (01) ==
LOC: ER 12:39
DX: J34.0 Abscess, furuncle and carbuncle of nose (principal); F17.210 Nicotine dependence, cigarettes, uncomplicated
CPT/HCPCS: 99284

== ENCOUNTER 2024-01-26 21:00 | Inpatient (IN) | payer OTHER ==
--- OUTSIDE RECORDS SUMMARY | 2024-01-26 21:02 | XMS REPORT | Clinical Summary ---
Author Name Unknown Organization [facility] Address [address] [place] [address] Care Team Providers Care Winery Worker Name Role Phone Carl Jones MD Unavailable Luis Angel Cervantes MD, Henrique Primary Care Provider [phone] Kang Piedra MD Unavailable [phone] Mary Beth Hinson [facility] Unavailable CLC [email or web address] Clay Hernandez MD Unavailable [phone] Kang Monreal MD Unavailable [phone] Patrick Huerta MD Unavailable [phone] Allergies No known active allergies Medications [...] 3 (three) times a day. 60 tablet 01/17/2021 Active multivitamin tab tabletIndications: Aspiration into lower respiratory tract Take 1 tablet by mouth daily. 30 tablet 01/19/2021 Active budesonide (PULMICORT) 0.25 mg/2 mL nebulizer solutionIndication s:severe chronic obstructive pulmonary disease Inhale 0.25 mg by nebulization daily. Active umeclidinium-vilan teroL 62.5-25 mcg/actuation dsdv Inhale by mouth. Active loperamide (IMODIUM) 2 mg capsuleIndications :Aspiration into lower respiratory tract Take 1 capsule (2 mg) by mouth every 8 (eight) hours as needed for diarrhea. Buy over the counter 0 02/27/2021 Active Additional Information Patient not taking.Reason: No longer taking, Reported on 09/13/2022 megestrol (MEGACE) 40 mg/mL suspension Give 400 mg per G-tube. Active baclofen (LIORESAL) 10 mg tabletIndications: Muscle spasm of back Take 1 tablet (10 mg) by mouth every 12 (twelve) hours as needed for muscle spasms. 60 tablet 05/17/2021 Active Additional Information Patient not taking.Reason: No longer taking, Reported on 06/07/2022 pantoprazole (PROTONIX) 40 mg EC tabletIndications: Aspiration into lower respiratory tract TAKE 1 TABLET(40 MG) BY MOUTH DAILY 30 tablet 6 07/27/2021 Active memantine (NAMENDA) 10 mg tabletIndications: Small cell carcinoma, NOS of upper lobe, lung <Right> TAKE 1 TABLET(10 MG) BY MOUTH TWICE DAILY 60 tablet 08/13/2021 Active acetaminophen-code ine (TYLENOL #3) 300 mg-30 mg tabletIndications: Neoplasm related pain (acute) (chronic) Take 1 tablet by mouth every 6 (six) hours as needed for mild pain or moderate pain (Marj Garza APN). 30 tablet 09/07/2021 Active Additional Information Patient not taking.Reason: [...] mouth every 12 (twelve) hours. 14 tablet 10/24/2021 Active Additional Information Patient not taking.Reason: No longer taking, Reported on 09/13/2022 sucralfate (CARAFATE) 100 mg/mL suspensionIndicati ons:Gastroesophage al reflux disease Take 10 mL (1,000 mg) by mouth 4 (four) times a day before meals and nightly. 420 mL 10/24/2021 Active Additional Information Patient not taking.Reason: No longer taking, Reported on 09/13/2022 QUEtiapine (SEROquel) 25 mg tabletIndications: Adjustment disorder with mixed anxiety and depressed mood Take 3 tablets (75 mg) by mouth at bedtime. 90 tablet 10/24/2021 Active Ventolin HFA 90 mcg/actuation inhalerIndications :Pneumonia due to other Gram-negative bacteria Inhale 1 puff by mouth every 6 (six) hours as needed for wheezing or shortness of breath. 8 g 10/24/2021 Active Additional Information Patient not taking.Reason: No longer taking, Reported on 06/07/2022 levoFLOXacin (Levaquin) 500 mg tabletIndications: Upper respiratory infection, not otherwise specified Take 1 tablet (500 mg) by mouth daily. 7 tablet 11/02/2021 Active amoxicillin-clavul anate (Augmentin) 875 mg-125 mg per tabletIndications: Upper respiratory infection, not otherwise specified Take 1 tablet (875 mg) by mouth twice daily. 14 tablet 11/13/2021 Active Additional Information Patient not taking.Reason: No longer taking, Reported on 06/07/2022 midodrine (PROAMATINE) 5 mg tablet Take 1 tablet (5 mg) by mouth twice daily. 05/13/2022 Active amitriptyline (ELAVIL) 25 mg tablet AT BEDTIME 12/23/2022 Active Advair Diskus 250-50 mcg/dose diskus inhaler as needed. 12/05/2022 Active Eliquis 5 mg tabletIndications: Small [...] as needed for moderate pain. 90 tablet 01/22/2023 Active amoxicillin-clavul anate (Augmentin) 875 mg-125 mg per tabletIndications: Upper respiratory infection, not otherwise specified Take 1 tablet (875 mg) by mouth twice daily. 20 tablet 06/27/2023 Active Trelegy Ellipta 100-62.5-25 mcg dsdv 1 each. 09/02/2023 Active QUEtiapine (SEROquel) 25 mg tabletIndications: Anxiety disorder due to a general medical condition Take 1 tablet (25 mg) by mouth every 6 (six) hours as needed for non-violent agitation (anxiety sleep). 100 tablet 11/27/2023 Active QUEtiapine (SEROquel) 25 mg tabletIndications: Anxiety disorder due to a general medical condition Take 1 tablet (25 mg) by mouth every 6 (six) hours as needed for non-violent agitation (anxiety sleep). 60 tablet 12/28/2021 11/27/19 24 Discontinu ed(Reorder ) Active Problems Problem Noted Date Diagnosed Date Anemia in malignant neoplastic disease 2 Swallowing painful 10/15/2021 Overview: Added automatically from request for surgery [id number] Community acquired pneumonia 09/03/2021 Small cell carcinoma of lung 05/17/2021 Overview: Added automatically from request for surgery [id number] Family education about pain management 1 History of radiation therapy 02/16/2021 Pressure-induced deep tissue damage of other sit e 01/05/2021 Overview: Site: Coccyx Sepsis 01/04/2021 Pulmonary embolism 11/17/2020 Stage 1 pressure ulcer of other site 11/14/2020 Overview: 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 ear- 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 Tube feeding diet [...] 08/10/2020 Decompensated COPD with acute exacerbation 07/30 detention current use of opiate analgesic 2020 Small [...] Encounters Date Type Department Care Team Description 01/08/2024 Telephone [facility] [address] Bldg, 9th [place] [address] Lisa Acevedo RN 01/01/2024 Orders Only [facility] [address] Bld[address], 9th [place] [address] Henrique Plasencia MD 12/15/2023 Telephone [facility] [address] Bldg, 9th [place] [address] Lisa Acevedo RN 11/27/2023 Orders Only [facility] [address] Main Bldg, 9th [place] [address] Stella Clark APRN Anxiety disorder due to a general medical condition 11/21/2023 9:15 AM CDT - 11/21/2023 11:59 PM CDT Hospital Encounter [facility] [address] [place] [address] Main Bldg, [place] [address] Stella Clark APRN Small cell carcinoma, NOS of upper lobe, lung <Right> Discharge Disposition: Home 11/21/2023 [facility] Only [facility] [address] [place], [place] [address] Main Bldg, 9th [place] [address] Henrique Plasencia MD 10/28/2023 [place] [facility] [address] [place] [address] Main Bldg, 9th [place] [address] Lisa Acevedo RN 09/12/2023 3:00 PM CDT Follow-Up [facility] [address] [place] [address] Main Bldg, 9th [place] [address] Henrique Plasencia MD Small cell carcinoma, NOS of upper lobe, lung <Right> 09/12/2023 9:40 AM CDT - 09/12/2023 11:59 PM CDT Hospital [facility] [address] [place] [address] Main Bldg, [place] [address] Stella Clark APRN Small cell carcinoma, NOS of upper lobe, lung <Right> Discharge Disposition: Home 09/12/2023 9:03 AM CDT - 09/12/2023 9:39 AM CDT Hospital Encounter Main CT IMAGING [address] [facility] Main Bldg, 3rd [place] [address] Stella Clark APRN Small cell carcinoma, NOS of upper lobe, lung <Right> Discharge Disposition: Home 09/12/2023 Travel 06/27/2023 3:00 PM CODING AUDITOR Follow-Up [facility] [address] [place], [place] [address] Main Bldg, 9th [place] [address] Henrique Plasencia MD Upper respiratory infection, not otherwise specified (Primary Dx); Small cell carcinoma, NOS of upper lobe, lung <Right> 06/27/2023 8:51 AM CODING AUDITOR - 06/27/2023 11:59 PM CODING AUDITOR Hospital Encounter Main CT IMAGING [address] Main Bldg, 3rd [place] [address] Stella Clark APRN Small cell carcinoma, NOS of upper lobe, lung <Right> Discharge Disposition: Home 06/27/2023 8:14 AM CODING AUDITOR - 06/27/2023 8:50 AM CODING AUDITOR Hospital Encounter [facility] [address] Bldg, [place] [address] Stella Clark APRN Small cell carcinoma, NOS of upper lobe, lung <Right> Discharge Disposition: Home 06/27/2023 Travel 06/27/2023 Orders Only [facility] [address] Main Bldg, 9th [place] [address] Stella Clark APRN 06/16/2023 Orders Only [facility] [address] Main Bldg, 9th [place] [address] Stella Clark APRN Small cell carcinoma, NOS of upper lobe, lung <Right> (Primary Dx) 04/22/2023 Orders Only [facility] [address] Bldg, 9th [place] [address] Stella Clark APRN Small cell carcinoma, NOS of upper lobe, lung <Right> (Primary Dx) 03/31/2023 2:00 PM CDT Telemedicine [facility] [address] Main Bldg, 9th [place] [address] Stella Clark APRN 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 03/28/2023 Orders Only [facility] [address] Main Bldg, 9th [place] [address] Henrique Plasencia MD 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 (Primary Dx) 03/26/2023 Telephone [facility] [address] [place] [address] Main [facility] [place] [address] Lisa Acevedo RN 03/17/2023 10:00 AM CDT Telemedicine [facility] [place] [facility] [address] [place] [address] Main [facility] [place] [address] Stella Clark APRN Small cell carcinoma, NOS of upper lobe, lung <Right> 03/16/2023 Orders Only [facility] [address] [place] [address], [address] [place] [address] [place] [address] Stella Clark APRN 03/10/2023 Orders Only [facility] [place] [facility] [address] [place] [address], [address] [place] [address] [place] [address] Stella Clark APRN Small cell carcinoma, NOS of upper lobe, lung <Right> (Primary Dx) 03/06/2023 Orders Only [facility] [place] [facility] [address] [place] [address], [address] [place] [address] [place] [address] Stella Clark APRN Small cell carcinoma, NOS of upper lobe, lung <Right> (Primary Dx) 03/06/2023 Nurse Triage [facility] PHYSICIAN [address] [place] [id number] Aletha Peña, FINANCIAL REPORTING SPECIALIST after 01/26/2023 Immunizations Name Administration Dates Next Due Influenza Split High Dose Preservative Free IM 0 03/29/2020 Pneumococcal Polysaccharide 03/24/2022 Zoster Recombinant 03/29/2020 Surgical History Surgery Date Site/Laterality Comments NV EGD BALLOON DILATION ESOPHAGUS <30 MM DIAM 09/29/2020 Esophagus/N/A Procedure: UPPER GASTROINTESTINAL ENDOSCOPY WITH BALLOON DILATION OF ESOPHAGUS; Surgeon: Owen Leonard MD; Location: MAIN ENDOSCOPY; Service: GASTROENTEROLOGY NV EGD PERCUTANEOUS PLACEMENT GASTROSTOMY TUBE 09/29/2020 Abdomen/N/A Procedure: UPPER GASTROINTESTINAL ENDOSCOPY WITH DIRECTED PLACEMENT OF PERCUTANEOUS (PEG) GASTROSTOMY TUBE; Surgeon: Owen Leonard MD; Location: MAIN ENDOSCOPY; Service: GASTROENTEROLOGY NV BRNCC W/BRNCL ALVEOLAR LAVAGE 10/23/2020 N/A Procedure: FLEXIBLE BRONCHOSCOPY WITH BRONCHIAL ALVEOLAR LAVAGE; Surgeon: Krys Brewer MD; Location: MAIN PULM PROC; Service: PULMONARY NV PERQ REPLACEMENT GTUBE NOT REQ REVJ GSTRST TRC 05/21/2021 N/A Procedure: REPLACEMENT OF GASTROSTOMY TUBE, PERCUTANEOUS, INCLUDES REMOVAL, WHEN PERFORMED, WITHOUT IMAGING OR ENDOSCOPIC GUIDANCE; NOT REQUIRING REVISION OF GASTROSTOMY TRACT; Surgeon: Neha Tobin MD; Location: MAIN ENDOSCOPY; Service: GASTROENTEROLOGY NV EGD TRANSORAL BIOPSY SINGLE/MULTIPLE 10/19/2021 Esophagus/N/A Procedure: [...] Used Date Smoking Tobacco: Former Cigarettes 1.5 50 1 2019 Smokeless Tobacco: Never Tobacco Cessation:Counseling [...] Body Mass Index 17.24 06/07/2022 7:11 AM CODING AUDITOR Plan of Treatment Upcoming Encounters Date Type Department Care Team (Late st Contact Info) Description 02/05/2024 1:30 PM CDT Ancillary Procedure PET Imaging [address] [facility], 6th [place] [address] Stella Clark, SHANNEN [address] [place] [address] [email or web address] 02/06/2024 11:00 AM CDT Follow-Up [facility] [address] [facility], 9th [place] [address] Henrique Plasencia MD [address] [place] [address] [email or web address] Health Maintenance Due Date Last Done Comments COVID-19 Vaccine (#1) 11/23/1960 Influenza Vaccine 02/29/2024 03/29/2020 Procedures Procedure Name Priority Date/Time Associated Diagnosis Comments .CBC Routine 11/21/2023 10:38 AM CDT Small cell carcinoma, NOS of upper lobe, lung <Right> URIC ACID Routine 11/21/2023 10:38 AM CDT Small cell carcinoma, NOS of upper lobe, lung <Right> MAGNESIUM LEVEL Routine 11/21/2023 10:38 AM CDT Small cell carcinoma, NOS of upper lobe, lung <Right> COMPREHENSIVE METABOLIC PANEL Routine 11/21/2023 10:38 AM CDT Small cell carcinoma, NOS of upper lobe, lung <Right> COMPLETE BLOOD COUNT W/ DIFFERENTIAL Routine 11/21/2023 10:38 AM CDT Small cell carcinoma, NOS of upper lobe, lung <Right> CT CHEST W CONTRAST Routine 09/12/2023 1 [...] W CONTRAST Routine 06/27/2023 1 0:49 AM CODING AUDITOR Small cell carcinoma, NOS of upper lobe, lung <Right> .CBC Routine 06/27/2023 8:34 AM CODING AUDITOR Small cell carcinoma, NOS of upper lobe, lung <Right> URIC ACID Routine 06/27/2023 8:34 AM CODING AUDITOR Small cell carcinoma, NOS of upper lobe, lung <Right> MAGNESIUM LEVEL Routine 06/27/2023 8:34 AM CODING AUDITOR Small cell carcinoma, NOS of upper lobe, lung <Right> COMPREHENSIVE METABOLIC PANEL Routine 06/27/2023 8:34 AM CODING AUDITOR Small cell carcinoma, NOS of upper lobe, lung <Right> COMPLETE BLOOD COUNT W/ DIFFERENTIAL Routine 06/27/2023 8:34 AM CODING AUDITOR Small cell carcinoma, NOS of upper lobe, lung <Right> after 01/26/2023 Results * (ABNORMAL) .CBC (11/21/2023 10:38 AM CDT) Only the most recent of3 resultswithin the time period is included. Pathologist [facility] White Blood Cell 10.0 4.1 - 10.5 K/uL 11/21/2023 11:04 AM T [facility] Red Blood Cell 3.85(L) 4.30 - 6.04 M/uL 11/21/2023 11:04 AM T [facility] Hemoglobin 10.9(L) 13.3 - 17.4 g/dL 11/21/2023 11:04 AM T [facility] Hematocrit 33.7(L) 39.5 - 51.8 % 11/21/2023 11:04 AM T [facility] Mean Cell Volume 88 82 - 99 fL 11/21/2023 11:04 AM T [facility] Mean Cell Hemoglobin 28.3 26.6 - 33.2 pg 11/21/2023 11:04 AM T [facility] Mean Cell Hemoglobin Concentration 32.3 31.1 - 35.2 g/dL 11/21/2023 11:04 AM T [facility] RDW-SD 50.8(H) 37.5 - 49.7 fL 11/21/2023 11:04 AM T [facility] Red Cell Diameter Width 15.7(H) 11.6 - 15.5 % 11/21/2023 11:04 AM T [facility] Platelet 206 160 - 397 K/uL 11/21/2023 11:04 AM T [facility] Mean Platelet Volume 9.4 9.1 - 12.6 fL 11/21/2023 11:04 AM T [facility] INRBC 0.0 0.0 - 0.1 /100 WBC 11/21/2023 11:04 AM [facility] Comment: The INRBC (instrument NRBC) value reflects the enumeration of nucleated red blood cells contained in a 200uL sample of whole blood analyzed by the instrument. This value may differ from the NRBC value reported in a manual differential, which is based on a 100 cell differential. Neutrophil % 67.3 43.2 - 72.7 % 11/21/2023 11:04 AM [facility] Lymphocyte % 23.5 16.8 - 46.2 % 11/21/2023 11:04 AM [facility] Monocyte % 5.8 5.1 - 12.5 % 11/21/2023 11:04 AM [facility] Eosinophil % 3.0 0.4 - 6.3 % 11/21/2023 11:04 AM [facility] Basophil % 0.2 0.2 - 1.4 % 11/21/2023 11:04 AM [facility] IGRE % 0.2 0.1 - 1.5 % 11/21/2023 11:04 AM [facility] Comment:The IGRE% includes M etamyelocytes, Myelocytes and Promyelocytes. Neutrophil Abs 6.69 1.95 - 7.25 K/uL 11/21/2023 11:04 AM [facility] Lymphocyte Abs 2.34 1.01 - 3.24 K/uL 11/21/2023 11:04 AM [facility] Monocyte Abs 0.58 0.24 - 0.85 K/uL 11/21/2023 11:04 AM [facility] Eosinophil Abs 0.30 0.02 - 0.50 K/uL 11/21/2023 11:04 AM [facility] Basophil Abs 0.02 0.02 - 0.09 K/uL 11/21/2023 11:04 AM [facility] IG Abs 0.02 0.01 - 0.12 K/uL 11/21/2023 11:04 AM [facility] Blood Peripheral blood specimen / Unknown Venipuncture / Unknown 11/21/2023 10:38 AM CDT 11/21/2023 10:56 AM CDT Stella Clark FINANCIAL REPORTING SPECIALIST LAB BLOOD ORDERABL ES [facility] Unless otherwise noted, all lab tests performed by: Division of Pathology and Laboratory Medicine [address] [place] [address] * Comprehensive Metabolic Panel (11/21/2023 10:38 AM CDT) Only the most recent of3 resultswithin the time period is included. Bilirubin Total <0.3 0.0 - 1.2 mg/dL 11/21/2023 11:40 AM CDT [facility] Comment:Indocyanine Green (I CG) may cause falsely elevated bilirubin results. Total and direct bilirubin must not be measured from samples containing indocyanine green. False elevation of total bilirubin can be seen in patients with IgG concentrations above 28 g/L. eGFR 102 >=60 mL/min/1. 73 sq. m 11/21/2023 11:40 AM CDT [facility] Comment: The eGFRcr is calculated with the [...] G2 fulfill criteria for CKD. Tot Protein 6.8 6.4 - 8.3 gm/dL 11/21/2023 11:40 AM CDT [facility] Calcium Level Total 9.4 8.2 - 10.2 mg/dL 11/21/2023 11:40 AM [facility] Alkaline Phosphatase 95 40 - 129 U/L 11/21/2023 11:40 AM [facility] Albumin Level 3.8 3.5 - 5.2 gm/dL 11/21/2023 11:40 AM [facility] AST 10 <=40 U/L 11/21/2023 11:40 AM [facility] ALT 9 <=41 U/L 11/21/2023 11:40 AM [facility] Sodium Level 137 136 - 145 mmol/L 11/21/2023 11:40 AM [facility] Potassium Level 4.1 3.4 - 4.5 mmol/L 11/21/2023 11:40 AM [facility] Chloride 102 98 - 107 mmol/L 11/21/2023 11:40 AM [facility] CO2 28 22 - 29 mmol/L 11/21/2023 11:40 AM [facility] Anion Gap 7 4 - 14 mmol/L 11/21/2023 11:40 AM [facility] Creatinine 0.67 0.67 - 1.17 mg/dL 11/21/2023 11:40 AM [facility] BUN 10 6 - 23 mg/dL 11/21/2023 11:40 AM [facility] Glucose Level 89 70 - 99 mg/dL 11/21/2023 11:40 AM [facility] Comment: Effective 01/24/16, the glucose reference intervals have been updated based on [place] [employer] guidelines (Standards of Medical Care in Diabetes 2016. Diabetes Care 2016; 39: S13-S22). Fasting blood glucose: Normal: 70-99 mg/dL Impaired fasting glucose (increased risk for diabetes or pre-diabetes): 100-125 mg/dL Diabetes mellitus: >/=126 mg/dL Random blood glucose: Normal: 70-199 mg/dL Note: Random glucose >100 mg/dL is associated with increased risk for diabetes. Blood Peripheral blood specimen / Unknown Venipuncture / Unknown 11/21/2023 10:38 AM CDT 11/21/2023 10:56 AM CDT Stella Clark APRN LAB BLOOD ORDERABL ES Performing Organization Address City/[facility] Co de Phone Number [facility] Unless otherwise noted, all lab tests performed by: Division of Pathology and Laboratory Medicine [address] [place] [id number] * Uric Acid (11/21/2023 10:38 AM CDT) Only the most recent of3 resultswithin the time period is included. Uric Acid 3.4 3.4 - 7.0 mg/dL 11/21/2023 11:40 AM CDT [facility] Blood Peripheral blood specimen / Unknown Venipuncture / Unknown 11/21/2023 10:38 AM CDT 11/21/2023 10:56 AM CDT Stella Clark APRN LAB BLOOD ORDERABL ES Performing Organization Address [facility] de Phone Number [facility] Unless otherwise noted, all lab tests performed by: Division of Pathology and Laboratory Medicine [address] [place] [phone] * Magnesium Level (11/21/2023 10:38 AM CDT) Only the most recent of3 resultswithin the time period is included. Magnesium Level 2.0 1.6 - 2.6 mg/dL 11/21/2023 11:40 AM CDT [facility] Blood Peripheral blood specimen / Unknown Venipuncture / Unknown 11/21/2023 10:38 AM CDT 11/21/2023 10:56 AM CDT Stella Clark APRN LAB BLOOD ORDERABL ES Performing Organization Address City/[facility] de Phone Number [facility] Unless otherwise noted, all lab tests performed by: Division of Pathology and Laboratory Medicine [address] [place] [phone] * CT Chest with Contrast (09/12/2023 11:24 AM CDT) Only the most recent of2 [...] adenopathy. ACTIONABLE ITEMS/RECOMMENDATIONS*: None. Stella Clark APRN IMG CT ORDERABLES * POC Creatinine (09/12/2023 10:55 AM CDT) POC Creatinine 0.6 0.6 - 1.3 mg/dL 09/12/2023 10:57 AM CDT [facility] Comment:Medications, especia lly hydroxyurea or supplements, such as ascorbate, can interfere with test results causing a falsely and significantly higher result than expected. If a problem is suspected with a patient's result, a sample should be sent to the laboratory for confirmatory testing. POC eGFR 105 >=60 mL/min/1.7 3 sq. m 09/12/2023 10:57 AM CDT [facility] Comment: The eGFRcr is calculated with [...] AM CDT 09/12/2023 10:57 AM CDT Narrative [facility] - 09/12/2023 10:57 AM CDT Method [...] Stella Clark APRN POCT ORDERABLES - DEVICE [facility] Unless otherwise noted, all lab tests performed by: Division of Pathology and Laboratory Medicine [address] [place] [phone] after 01/26/2023 Advance Directives * Full Code (Latest Code Status on File) Date Activated Date Inactivated Comments 10/15/2021 2:23 PM 10/24/2021 8:32 PM * Full Code Date Activated Date Inactivated Comments 09/03/2021 10:00 PM 09/07/2021 5:51 PM * Full Code Date Activated Date Inactivated Comments 02/16/2021 11:33 PM 03/02/2021 8:45 PM * Full Code Date Activated Date Inactivated Comments 01/22/2021 1:08 AM 01/30/2021 8:41 PM * Full Code Date Activated Date Inactivated Comments 01/04/2021 3:56 PM 01/19/2021 6:53 PM Care Teams Winery Worker Relationship Specialty Start Date End Date Carl Jones MD [address] [facility] [address] [place] [phone] PCP - External Primary Care Provider Family Practice 02/14/20 Henrique Plasencia MD [address] [place] [phone] [email or web address] PCP - General Thoracic Medicine 04/21/20 Kang Piedra MD [address] [place] [address] [email or web address] PCP - External Follow Up C Dermatology 06/12/20 Mary Beth Hinson, [facility] [address] [place] [id number] [email or web address] Speech Language Pathologist Speech Pathology 04/16/21 Clay Hernandez MD [address] [place] [id number] [email or web address] Consulting Physician Pulmonary Medicine 03/31/20 Kang Monreal MD [address] [place] [phone] [email or web address] Consulting Physician Hematology and Oncology 04/16/21 Patrick Huerta MD [address] [place] [phone] [email or web address] Consulting Physician Dermatology 05/18/20
[2024-01-26 21:57] LABS: Absolute Lymphocytes (CBC) 1.7 K/uL (0.7-4.9); Absolute Monocytes 0.4 K/uL (0.1-1.3); Absolute Neutrophil 6.1 K/uL (1.8-8.0); Basophils % 0.4 % (0-1.3); Eosinophils % 0.1 % (0-4.4); Hematocrit 31.7 % (39.6-49.0); Hemoglobin 10.6 g/dL (13.6-17.9); MCH 29.1 pg (27.0-35.0); MCHC 33.4 g/dL (32.0-36.0); MCV 87.1 fL (80-100); MPV 7.7 fL (7.6-11.3); Monocytes % 5.4 % (3.3-12.3); Neutrophils % 73.1 % (41.7-73.7); Nucleated Red Blood Cells % 0.1 % (0-0); Platelets 168 thou/uL (152-406); RBC Red Blood Cell Count 3.64 M/uL (4.33-5.43); Red Cell Distribution Width 14.9 % (12.1-15.2)
[2024-01-26 22:09] LABS: D-Dimer 2.815 FEUug/mL (0-0.50); PT Prothrombin Time 12.6 SECONDS (9.4-12.5); PTT, Activated Partial Thromb 31.7 SECONDS (24.3-36.9); Protime INR 1.13
[2024-01-26 22:35] LABS: ALT/SGPT < 14 U/L (16-61); AST/SGOT < 10 U/L (15-37); Albumin/Globulin Ratio 0.8 (1.1-1.8); Alkaline Phosphatase 75 U/L (45-117); Anion Gap 9.1 mEq/L (5.0-15.0); BUN Blood Urea Nitrogen 11 mg/dL (7-18); Bicarbonate 28 mEq/L (21-32); Bilirubin Direct 0.3 mg/dL (0-0.2); Bilirubin Indirect, Calculated 0.4 mg/dL (0.2-0.8); Bilirubin Total 0.7 mg/dL (0.2-1.0); Creatine Phosphokinase 28 U/L (39-308); Globulin 3.6 g/dL (2.3-3.5); Glomerular Filtration Rate 100 ml/min (=/>90); Glucose Level 149 mg/dL (74-106); Lipase 9 U/L (13-75); Magnesium 1.8 mg/dL (1.6-2.4); NT PRO-BNP 444 pg/mL (<125); Potassium 3.1 mEq/L (3.5-5.1); Protein, Total 6.6 g/dL (6.4-8.2); Sodium Level 137 mEq/L (136-145); Troponin High Sensitivity < 3.0 pg/mL (<58.9)
--- NOTE | 2024-01-26 23:00 | RAD REPORT ---
EXAM DESCRIPTION: CT - Chest Abd Pelvis Wo Con - 01/26/2024 10:18 pm CLINICAL HISTORY: Shortness of breath/lung cancer/abdominal pain COMPARISON: July 2023 TECHNIQUE: Computed axial tomography of the chest, abdomen and pelvis was obtained. Oral contrast wa s given. IV contrast was not requested. All CT scans are performed using dose optimization technique as appropriate and may include automated exposure control or mA/KV adjustment according to patient size. FINDINGS: The evaluation of mediastinum, darcy, vessels and solid organs is limited secondary to the lack of IV contrast administration COPD. Right upper lobe bronchiectasis with chronic cavity and scarring. Development of mild to moderate reticular nodular opacities within the lower lobes. Additional chroni c appearing bilateral lung opacities. Mild enlargement of several mediastinal lymph nodes which measure up to 1 millimeter short axis. Trace pericardial effusion. No pleural effusion A pleural effusion is not present. A pericardial effusion is not seen. No change in the position of a biliary stent. Liver, spleen, pancreas, adrenals kidneys grossly normal There is no evidence of diverticulitis. IMPRESSION: Mild to moderate reticulonodular opacities within lower lobes may indicate infection or pneumonitis Mild enlargement of mediastinal lymph nodes. Most are upper limits normal caliber to mildly enlarged. These probably are reactive nature but should followed on subsequent exam for stability
[2024-01-26] MEDS ORDERED: AZITHROMYCIN 500 MG INJ IVPB ONE (23:13)
[2024-01-26] MEDS ORDERED: CEFTRIAXONE 1000 MG/VIAL ONE (23:13)
[2024-01-26] MEDS ORDERED: ALBUTEROL 2.5 MG/3 ML NEB SOL ONE (23:13)
[2024-01-26] MEDS ORDERED: NA CHLORIDE 0.9% 250 ML ONE (23:14)
[2024-01-26] MEDS ORDERED: GUAIFENESIN/DM 5 ML UCUP ONE ×2 (23:14)
--- NOTE | 2024-01-27 02:00 | ER ---
Nurse's Notes [facility] Name: Chato Moreno IV Age: 68 yrs Sex: Male : 1955 Arrival Date: 01/26/2024 Time: 21:00 Bed 14 Private MD: Diagnosis: COPD/ Chronic obstructive pulmonary disease with acute lower respiratory infection;COPD/ Chronic obstructive pulmonary disease with (acute) exacerbation;Bilateral bacterial pneumonia Presentation: 01/25 21:26 Chief complaint: Patient states: difficulty breathing, hx of copd and lung cancer. al5 Coronavirus screen: difficulty breathing. Ebola Screen: No symptoms or risks identified at this time. Initial Sepsis Screen: Does the patient meet any 2 criteria? HR > 90 bpm. No. Patient's initial sepsis screen is negative. Does the patient have a suspected source of infection? No. Patient's initial sepsis screen is negative. Risk Assessment: Do you want to hurt yourself or someone else? Patient reports no desire to harm self or others. Onset of symptoms was January 26, 2024. 21:26 Method Of Arrival: [facility] al5 21:26 Acuity: STEWART 2 al5 21:50 Care prior to arrival: IV initiated. 20 GA, in the right wrist. al5 Triage Assessment: 21:48 General: Appears distressed, uncomfortable, Behavior is cooperative, restless. Pain: al5 Complains of pain in generalized. EENT: No signs and/or symptoms were reported regarding the EENT system. Neuro: Level of Consciousness is awake, alert, obeys commands, Oriented to person, place, time, situation. Cardiovascular: Patient's skin is warm and dry. Respiratory: Airway is patent Respiratory effort is even, labored, Respiratory pattern is regular, symmetrical. GI: No signs and/or symptoms were reported involving the gastrointestinal system. Derm: Skin is intact, Skin is pink, warm \\T\\ dry. Musculoskeletal: No signs and/or symptoms reported regarding the musculoskeletal system. Historical: - Home Meds: 21:44 Eliquis 5 mg Oral tablet 2 times per day [Active]; memantine 10 mg Oral tablet al5 [Active]; midodrine Oral 5 tabs [Active]; pantoprazole 40 mg oral tablet, delayed release (enteric coated) [Active]; midodrine 5 mg oral tablet 2 times per day [Active]; quetiapine 50 mg oral tablet 3 tabs 2 times per day [Active]; buprenorphine-naloxone 8-2 mg sublingual Film 0.5 film three times a day [Active]; - PMHx: 21:44 Atrial fibrillation; COPD; Emphysema; Lung Cancer; Pneumonia; al5 - PSHx: 21:44 Cholecystectomy; al5 - Immunization history:: Adult Immunizations up to date. - Infectious Disease History:: Denies. - Social history:: Smoking status: Patient reports the use of cigarette tobacco products, 1/4 PPD. - Family history:: not pertinent. Screenin:49 [facility] ED Fall Risk Assessment (Adult) History of falling in the last 3 months, al5 including since admission No falls in past 3 months (0 pts) Confusion or Disorientation No (0 pts) Intoxicated or Sedated No (0 pts) Impaired Gait No (0 pts) Mobility Assist Device Used No (0 pt) Altered Elimination No (0 pt) Score/Fall Risk Level 0 - 2 = Low Risk Oriented to surroundings, Maintained a safe environment, Hourly rounding (assess needs \\T\\ fall precautionary measures) done. Abuse screen: Denies threats or abuse. Denies injuries from another. Nutritional screening: No deficits noted. Tuberculosis screening: No symptoms or risk factors identified. Assessment: 21:49 General: see triage assessment. al5 22:50 Reassessment: Patient appears in no apparent distress at this time. No changes from al5 previously documented assessment. Patient and/or family updated on plan of care and expected duration. Pain level reassessed. Patient is alert, oriented x 3, equal unlabored respirations, skin warm/dry/pink. 22:58 Reassessment: Pt screaming and cussing at the nurses stating " Bring me some fucking jb4 water!" Pt given water per pt request. Call light placed beside the pt. 23:38 Reassessment: Patient appears in no apparent distress at this time. Patient and/or al5 family updated on plan of care and expected duration. Pain level reassessed. Patient is alert, oriented x 3, equal unlabored respirations, skin warm/dry/pink. 01/26 00:10 Reassessment: Patient appears in no apparent distress at this time. Patient and/or al5 family updated on plan of care and expected duration. Pain level reassessed. Patient is alert, oriented x 3, equal unlabored respirations, skin warm/dry/pink. Patient states symptoms have improved. 01:13 Reassessment: Patient appears in no apparent distress at this time. No changes from al5 previously documented assessment. Patient and/or family updated on plan of care and expected duration. Pain level reassessed. Patient is alert, oriented x 3, equal unlabored respirations, skin warm/dry/pink. resting comfortably. 04:11 Reassessment: walked into patient's room with ELLA Carr and patient was resting al5 comfortably, sleeping. this nurse was getting albumin and 500mL saline bolus set up, per doctors order, to connect to patient while trying to notify the patient of the medications he was about to receive. patient interrupted the nurse demanding water, which has been at his bedside. This nurse told the patient that once I was done connecting the medications that he could have some water. Attempting to educate on the importance of the medication first, patient started to yell at the nurse, cussing, saying "hand me the fucking water or get me your head nurse I want to file a complaint" multiple times in a row. This conversation is heard from across the ER and charge nurse ELLA Laird comes to patient room. Charge nurse assesses the situation and patient still cussing at this nurse saying "shut up I am fucking talking here, I deserve some damn respect around here" any time this nurse attempted to speak at any point. This nurse leaves the room so that the charge nurse can talk with the patient alone. 04:15 Reassessment: ELLA Carr and ELLA Caballero at the bedside prepping pt's medication. Pt asked jb4 for water, nurses informed pt that they would give him his water in just a second. Pt now screaming and swearing at the nurses "Give me the fucking water! Get me the head nurse now! I want to file a complaint!". This nurse is at the bedside explaining I am the charge and asking what is wrong. Pt explains the situation and when Ada tries to also explain pt states "Shut up! I am the one fucking talking here! You shut up and let me speak! I demand respect!". This nurse informed the pt that he does not need to speak to the nurses in such a manner and that they are prepping medications to help make him better. Pt states "Do not lecture me on respect, you are paid to be here, you are working for me! I want respect! If you are going to defend them, then get out!" Asked pt if he would like to speak with my supervisor area. Pt states " No, I will let it go this time. I will let it go, if I feel they are being disrespectful at all, I am going to make a complaint.". Informed pt he can make a complaint if he feels the need to and that we would get him the resources needed, but he cannot scream and swear at the nurses. Offered to get the coin machine supervisor for the pt, pt refused stating "No, I will let it go this time.". 05:00 Reassessment: patient admit to ED hold, see [facility] for reassessments and vital signs..al5 Vital Signs: 01/25 21:26 BP 102 / 67; Pulse 108; Resp 24; Temp 97.7(TE); Pulse Ox 100% on 15 lpm Nebulizer Mask; al5 Weight 43.09 kg; Height 5 ft. 3 in. ; 21:30 BP 97 / 67; Pulse 108; Resp 20; Pulse Ox 100% on 15 lpm Nebulizer Mask; al5 22:00 BP 114 / 74; Pulse 109; Resp 20; Pulse Ox 100% on 15 lpm Nebulizer Mask; al5 22:30 BP 103 / 54; Pulse 102; Resp 19; Pulse Ox 100% on 15 lpm Nebulizer Mask; al5 23:00 BP 101 / 65; Pulse 97; Resp 19; Pulse Ox 100% on 15 lpm Nebulizer Mask; al5 01/26 00:00 BP 93 / 65; Pulse 101; Resp 18; Pulse Ox 98% on 10 lpm Nebulizer Mask; al5 00:30 BP 93 / 60; Pulse 96; Resp 18; Pulse Ox 98% on 10 lpm Nebulizer Mask; al5 01:00 BP 92 / 64; Pulse 93; Resp 18; Pulse Ox 99% on 10 lpm Nebulizer Mask; al5 01:30 BP 100 / 62; Pulse 87; Resp 18; Pulse Ox 99% on 6 lpm NC; al5 02:00 BP 108 / 84; Pulse 96; Resp 18; Pulse Ox 96% on 6 lpm NC; al5 02:30 BP 103 / 67; Pulse 88; Resp 18; Pulse Ox 96% on 6 lpm NC; al5 03:00 BP 88 / 58; Pulse 89; Resp 18; Pulse Ox 96% on 6 lpm NC; al5 05:52 BP 93 / 64; Pulse 83; Resp 16; Pulse Ox 97% on 6 lpm NC; al5 06:00 BP 95 / 67; Pulse 88; Resp 16; Pulse Ox 97% on 6 lpm NC; al5 01/25 21:26 Body Mass Index 16.83 (43.09 kg, 160.02 cm) al5 ED Course: 01/25 21:05 Patient arrived in ED. rv1 21:13 Roque Mcginnis MD is Attending Physician. sp4 21:26 Ada Junior, ELLA is Primary Nurse. al5 21:44 Triage completed. al5 21:49 Arm band placed on right wrist. Patient placed in an exam room, on a stretcher. al5 21:50 Patient has correct armband on for positive identification. Bed in low position. Call al5 light in reach. Side rails up X 1. Provided Education on: processes and procedures. 21:50 No provider procedures requiring assistance completed. Maintain EMS IV. Dressing al5 intact. Good blood return noted. Site clean \\T\\ dry. Gauge \\T\\ site: 20G R wrist. 22:18 CT Chest Abdomen Pelvis W/O Contrast In Process Unspecified. EDMS 01/26 01:59 Alexus Moffett is Hospitalizing Provider. sp4 03:10 Urine Drug Screen Sent. al5 03:10 Alcohol Level Sent. al5 04:08 Patient admitted, IV remains in place. al5 Administered Medications: 01/25 23:23 Drug: Dextromethorphan-Guaifenesin PO Liquid 10 mg-100 mg/5 mL 10 ml PO once Route: PO; al5 01/26 00:30 Follow up: Response: No adverse reaction al5 01/25 23:24 Drug: Albuterol Inhalation 2.5 mg Inhalation every 20 minutes x3 Route: Inhalation; al5 23:24 Drug: Rocephin - Rocephin (cefTRIAXone) IVPB 1 grams IVPB once over 30 mins; (mix in 50 al5 mL NS) Route: IVPB; Infused Over: 30 mins; Site: right wrist; 01/26 00:31 Follow up: Response: No adverse reaction; IV Status: Completed infusion al5 01/25 23:24 Drug: Zithromax IVPB 500 mg IVPB once over 1 hrs; mix in 250 mL NS Route: IVPB; Infused al5 Over: 1 hrs; Site: right wrist; 01/26 00:31 Follow up: IV Status: Completed infusion; IV Intake: 250ml al5 02:11 Drug: Diazepam PO 2 mg PO once Route: PO; al5 02:57 Follow up: Response: No adverse reaction al5 04:09 Drug: NS 0.9% IV 500 ml IV at bolus once Route: IV; Rate: bolus; Site: right wrist; al5 06:03 Follow up: Response: No adverse reaction; IV Status: Completed infusion; IV Intake: al5 500ml 04:09 Drug: Albumin IVPB 25 grams 100 ml IVPB once; (Note: Albumin 25% concentration) Volume: al5 100 ml; Route: IVPB; Site: right wrist; 06:03 Follow up: Response: No adverse reaction; IV Status: Completed infusion al5 06:03 Drug: NS 0.9% IV 1000 ml IV at 125 ml/hr continuous Route: IV; Rate: 125 ml/hr; Site: al5 right wrist; 06:04 Follow up: Response: No adverse reaction; IV Status: Infusion continued upon admission al5 Medication: 01:21 VIS not applicable for this client. al5 Intake: 00:31 IV: 250ml; Total: 250ml. al5 06:03 IV: 500ml; Total: 750ml. al5 Outcome: 02:00 Decision to Hospitalize by Provider. sp4 16:04 Patient left the ED. ap3 Signatures: Dispatcher [employer] EDMS Hair Ramos RN RN jb4 Prokisch, Amanda, RN RN ap3 Evelyn Moore Sergey, MD MD sp4 Ada Junior RN RN al5 Corrections: (The following items were deleted from the chart) 01/25 21:48 21:44 Home Meds: amitriptyline 25 mg Oral tablet; al5 al5 01/26 01:16 01/25 23:08 Reassessment: Patient appears in no apparent distress at this time. No al5 changes from previously documented assessment. Patient and/or family updated on plan of care and expected duration. Pain level reassessed. Patient is alert, oriented x 3, equal unlabored respirations, skin warm/dry/pink. 01/26 01:18 01/25 23:08 Reassessment: Patient appears in no apparent distress at this time. Patient al5 and/or family updated on plan of care and expected duration. Pain level reassessed. Patient is alert, oriented x 3, equal unlabored respirations, skin warm/dry/pink. 01/26 04:23 01/25 22:58 Reassessment: Pt screaming and cussing at the nurses stating " Bring me jb4 some fucking water!" Pt given water per pt request. jb4
--- NOTE | 2024-01-27 02:00 | EDPHYS ---
Physician Documentation [facility] Name: Chato Moreno IV Age: 68 yrs Sex: Male : 1955 Arrival Date: 01/26/2024 Time: 21:00 Bed 14 Private MD: ED Physician Roque Mcginnis HPI: 01/25 21:13 This 68 yrs old Male presents to ER via Unassigned with complaints of COPD , sp4 cough, dyspnea . 01/26 02:09 68-year-old male with past medical history of COPD, alcohol abuse, pulmonary emboli, sp4 dementia, atrial fibrillation, lung cancer currently on radiation therapy at [facility], history of prior pneumonia, presents with EMS for acute dyspnea associated with cough. Patient reports that his dyspnea started several days ago. . 02:09 Patient's medications is Eliquis 5 mg p.o. twice daily, midodrine 5 mg p.o. twice sp4 daily, Ensure 3 times daily, memantine 10 mg p.o. daily, Protonix 40 mg p.o. twice daily, quetiapine 25 mg p.o. at bedtime, in the past patient took a course of Levaquin for pneumonia on 08/21/2023 patient was admitted for alcohol intoxication.. Historical: - Home Meds: 01/25 21:44 Eliquis 5 mg Oral tablet 2 times per day [Active]; memantine 10 mg Oral tablet al5 [Active]; midodrine Oral 5 tabs [Active]; pantoprazole 40 mg oral tablet, delayed release (enteric coated) [Active]; midodrine 5 mg oral tablet 2 times per day [Active]; quetiapine 50 mg oral tablet 3 tabs 2 times per day [Active]; buprenorphine-naloxone 8-2 mg sublingual Film 0.5 film three times a day [Active]; - PMHx: 21:44 Atrial fibrillation; COPD; Emphysema; Lung Cancer; Pneumonia; al5 - PSHx: 21:44 Cholecystectomy; al5 - Immunization history:: Adult Immunizations up to date. - Infectious Disease History:: Denies. - Social history:: Smoking status: Patient reports the use of cigarette tobacco products, 1/4 PPD. - Family history:: not pertinent. ROS: 01/26 02:09 Constitutional: Negative for fever, chills, and weight loss, Eyes: Negative for injury, sp4 pain, redness, and discharge, positive generalized weakness, positive cough, positive shortness of breath, All other systems are negative, Exam: 02:09 Constitutional: Thin appearing male, ill-appearing but nontoxic, breathing treatment sp4 ongoing on arrival, cachectic appearing male, Head/Face: Normocephalic, atraumatic. Eyes: Pupils equal round and reactive to light, extra-ocular motions intact. Lids and lashes normal. Conjunctiva and sclera are not injected. Cornea within normal limits. Periorbital areas with no swelling, redness, or edema. ENT: Nares patent. No nasal discharge, no septal abnormalities noted. Tympanic membranes are normal and external auditory canals are clear. Oropharynx with no redness, swelling, or masses, exudates, or evidence of obstruction, uvula midline. Mucous membranes moist. Neck: Trachea midline, no thyromegaly or masses palpated, and no cervical lymphadenopathy. Supple, full range of motion without nuchal rigidity, or vertebral point tenderness. Chest/axilla: Normal chest wall appearance and motion. Nontender with no deformity. No lesions are appreciated. Cachectic chest habitus Cardiovascular: Regular tachycardia, no gallops, murmurs, or rubs. Normal PMI, no JVD. No pulse deficits. Respiratory: Lungs have equal breath sounds bilaterally, with expiratory wheezing, no hyperresonance Abdomen/GI: Soft, with normal bowel sounds. No distension or tympany. No guarding or rebound. No evidence of tenderness throughout. Back: No spinal tenderness. No costovertebral tenderness. Male : Normal genitalia with no discharge or lesions. Skin: Warm, dry with normal turgor. Normal color with no rashes, no lesions, and no evidence of cellulitis. MS/ Extremity: Pulses equal, no cyanosis. Neurovascular intact. Full, normal range of motion. Neuro: Awake and alert, GCS 15, oriented to person, place, time, and situation. Cranial nerves II-XII grossly intact. Motor strength 5/5 in all extremities. Sensory grossly intact. 02:09 ECG was reviewed by the Attending Physician. EKG reveals sinus tachycardia at a rate of 102, EKG time 2157, otherwise unremarkable Vital Signs: 01/25 21:26 BP 102 / 67; Pulse 108; Resp 24; Temp 97.7(TE); Pulse Ox 100% on 15 lpm Nebulizer Mask; al5 Weight 43.09 kg; Height 5 ft. 3 in. ; 21:30 BP 97 / 67; Pulse 108; Resp 20; Pulse Ox 100% on 15 lpm Nebulizer Mask; al5 22:00 BP 114 / 74; Pulse 109; Resp 20; Pulse Ox 100% on 15 lpm Nebulizer Mask; al5 22:30 BP 103 / 54; Pulse 102; Resp 19; Pulse Ox 100% on 15 lpm Nebulizer Mask; al5 23:00 BP 101 / 65; Pulse 97; Resp 19; Pulse Ox 100% on 15 lpm Nebulizer Mask; al5 01/26 00:00 BP 93 / 65; Pulse 101; Resp 18; Pulse Ox 98% on 10 lpm Nebulizer Mask; al5 00:30 BP 93 / 60; Pulse 96; Resp 18; Pulse Ox 98% on 10 lpm Nebulizer Mask; al5 01:00 BP 92 / 64; Pulse 93; Resp 18; Pulse Ox 99% on 10 lpm Nebulizer Mask; al5 01:30 BP 100 / 62; Pulse 87; Resp 18; Pulse Ox 99% on 6 lpm NC; al5 02:00 BP 108 / 84; Pulse 96; Resp 18; Pulse Ox 96% on 6 lpm NC; al5 02:30 BP 103 / 67; Pulse 88; Resp 18; Pulse Ox 96% on 6 lpm NC; al5 03:00 BP 88 / 58; Pulse 89; Resp 18; Pulse Ox 96% on 6 lpm NC; al5 05:52 BP 93 / 64; Pulse 83; Resp 16; Pulse Ox 97% on 6 lpm NC; al5 06:00 BP 95 / 67; Pulse 88; Resp 16; Pulse Ox 97% on 6 lpm NC; al5 01/25 21:26 Body Mass Index 16.83 (43.09 kg, 160.02 cm) al5 MDM: 01/25 21:18 Patient medically screened. sp4 01/26 01:34 ED course: EXAM DESCRIPTION: CT - Chest Abd Pelvis Wo Con - 01/26/2024 10:18 pm CLINICAL sp4 HISTORY: Shortness of breath/lung cancer/abdominal pain COMPARISON: July 2023 TECHNIQUE: Computed axial tomography of the chest, abdomen and pelvis was obtained. Oral contrast was given. IV contrast was not requested. All CT scans are performed using dose optimization technique as appropriate and may include automated exposure control or mA/KV adjustment according to patient size. FINDINGS: The evaluation of mediastinum, darcy, vessels and solid organs is limited secondary to the lack of IV contrast administration COPD. Right upper lobe bronchiectasis with chronic cavity and scarring. Development of mild to moderate reticular nodular opacities within the lower lobes. Additional chronic appearing bilateral lung opacities. Mild enlargement of several mediastinal lymph nodes which measure up to 1 millimeter short axis. Trace pericardial effusion. No pleural effusion A pleural effusion is not present. A pericardial effusion is not seen. No change in the position of a biliary stent. Liver, spleen, pancreas, adrenals kidneys grossly normal There is no evidence of diverticulitis. IMPRESSION: Mild to moderate reticulonodular opacities within lower lobes may indicate infection or pneumonitis Mild enlargement of mediastinal lymph nodes. Most are upper limits normal caliber to mildly enlarged. These probably are reactive nature but should followed on subsequent exam for stability. 02:14 Differential Diagnosis altered mental status, sepsis, flu, Pneumonia, COPD sp4 exacerbation. Data reviewed: vital signs, nurses notes, EMS record, lab test result(s), EKG, radiologic studies, CT scan. Consideration of Admission/Observation Patient was admitted/placed on observation. Escalation of care including admission/observation considered. Management of patient was discussed with the following: Hospitalist: Betina CARDENAS . ED course: CT has revealed mild to moderate reticulonodular opacities within the lower lobes indicative of infection, enlargement of mediastinal lymph nodes, right upper lobe bronchiectasis with chronic cavity and scarring and chronic cavitary lesion.. 01/25 21:14 Order name: BMP; Complete Time: 00:01/25 21:14 Order name: Blood Culture Adult (2) 01/25 21:14 Order name: CBC with Diff; Complete Time: 00:01/25 21:14 Order name: CPK; Complete Time: 00:01/25 21:14 Order name: D-Dimer; Complete Time: 00:06 01/25 21:14 Order name: Hepatic Function; Complete Time: 00:06 01/25 21:14 Order name: Lipase; Complete Time: 00:06 01/25 21:14 Order name: Magnesium; Complete Time: 00:06 sp4 01/25 21:14 Order name: NT PRO-BNP; Complete Time: 00:06 4 01/25 21:14 Order name: PT-INR; Complete Time: 00:06 4 01/25 21:14 Order name: Ptt, Activated; Complete Time: 00:06 sp4 01/25 21:14 Order name: Troponin HS; Complete Time: 00:06 sp4 01/26 02:06 Order name: ABG; Complete Time: 03:49 sp4 01/26 02:09 Order name: Alcohol Level; Complete Time: 03:49 sp4 01/26 02:09 Order name: Urine Drug Screen; Complete Time: 03:49 sp4 01/26 11:30 Order name: Urinalysis w/ reflexes EDMS 01/25 21:15 Order name: CT Chest Abdomen Pelvis W/O Contrast; Complete Time: 00:06 sp4 01/26 12:26 Order name: CT EDOH 01/25 21:14 Order name: EKG; Complete Time: 21:15 01/25 21:14 Order name: Cardiac monitoring; Complete Time: 21:51 01/25 21:14 Order name: EKG - Nurse/Tech; Complete Time: 22:00 4 01/25 21:14 Order name: IV Saline Lock; Complete Time: 21:51 4 01/25 21:14 Order name: Labs collected and sent; Complete Time: 21:51 4 01/25 21:14 Order name: O2 Per Protocol; Complete Time: 21:51 4 01/25 21:14 Order name: O2 Sat Monitoring; Complete Time: 21:51 4 EC:09 Rate is 102 beats/min. Rhythm is regular, Sinus tachycardia. QRS [place] is Normal. IA sp4 interval is normal. QRS interval is normal. QT interval is normal. No Q waves. T waves are Flattened in leads V4, V5, V6. No ST changes noted. Clinical impression: No evidence of ischemia. Interpreted by me. Reviewed by me. Administered Medications: 01/25 23:23 Drug: Dextromethorphan-Guaifenesin PO Liquid 10 mg-100 mg/5 mL 10 ml PO once Route: PO; 01/26 00:30 Follow up: Response: No adverse reaction 01/25 23:24 Drug: Albuterol Inhalation 2.5 mg Inhalation every 20 minutes x3 Route: Inhalation; al5 23:24 Drug: Rocephin - Rocephin (cefTRIAXone) IVPB 1 grams IVPB once over 30 mins; (mix in 50 al5 mL NS) Route: IVPB; Infused Over: 30 mins; Site: right wrist; 01/26 00:31 Follow up: Response: No adverse reaction; IV Status: Completed infusion al5 01/25 23:24 Drug: Zithromax IVPB 500 mg IVPB once over 1 hrs; mix in 250 mL NS Route: IVPB; Infused al5 Over: 1 hrs; Site: right wrist; 01/26 00:31 Follow up: IV Status: Completed infusion; IV Intake: 250ml al5 02:11 Drug: Diazepam PO 2 mg PO once Route: PO; al5 02:57 Follow up: Response: No adverse reaction al5 04:09 Drug: NS 0.9% IV 500 ml IV at bolus once Route: IV; Rate: bolus; Site: right wrist; al5 06:03 Follow up: Response: No adverse reaction; IV Status: Completed infusion; IV Intake: al5 500ml 04:09 Drug: Albumin IVPB 25 grams 100 ml IVPB once; (Note: Albumin 25% concentration) Volume: al5 100 ml; Route: IVPB; Site: right wrist; 06:03 Follow up: Response: No adverse reaction; IV Status: Completed infusion al5 06:03 Drug: NS 0.9% IV 1000 ml IV at 125 ml/hr continuous Route: IV; Rate: 125 ml/hr; Site: al5 right wrist; 06:04 Follow up: Response: No adverse reaction; IV Status: Infusion continued upon admission al5 Disposition Summary: 01/27/24 02:00 Hospitalization Ordered Notes: Hospitalization Status: Inpatient Admission sp4 Provider: Alexus Moffett spMoose Condition: Stable sp4 Problem: new sp4 Symptoms: have improved sp4 Bed/Room Type: Standard sp4 Location: Telemetry/MedSurg (Inpatient)(01/27/24 14:01) bd Room Assignment: 228(01/27/24 14:01) bd Diagnosis - COPD/ Chronic obstructive pulmonary disease with acute lower respiratory infection sp4 - COPD/ Chronic obstructive pulmonary disease with (acute) exacerbation sp4 - Bilateral bacterial pneumonia sp4 Forms: - Medication Reconciliation Form sp4 - SBAR form sp4 - Leadership Thank You Letter sp4 Signatures: Dispatcher [employer] EDMS Tena Jane bd Evelyn Moore rv1 Roque Mcginnis MD MD sp4 Ada Junior RN RN al5 Corrections: (The following items were deleted from the chart) 01/25 21:15 21:15 BASIC METABOLIC PANEL+C.LAB.BRZ ordered. EDMS EDMS 21:15 21:15 BLOOD CULTURE*+BA.LAB.BRZ ordered. EDMS EDMS 21:15 21:15 CBC+H.LAB.BRZ ordered. EDMS EDMS 21:15 21:15 CREATINE PHOSPHOKINASE+C.LAB.BRZ ordered. EDMS EDMS 21:15 21:15 D-DIMER+COAG.LAB.BRZ ordered. EDMS EDMS 21:15 21:15 HEPATIC FUNCTION+C.LAB.BRZ ordered. EDMS EDMS 21:15 21:15 LIPASE+C.LAB.BRZ ordered. EDMS EDMS 21:15 21:15 MAGNESIUM+C.LAB.BRZ ordered. EDMS EDMS 21:15 21:15 PROBNP+C.LAB.BRZ ordered. EDMS EDMS 21:15 21:15 PROTIME (+INR)+COAG.LAB.BRZ ordered. EDMS EDMS 21:15 21:15 PTT, ACTIVATED+COAG.LAB.BRZ ordered. EDMS EDMS 21:15 21:15 Troponin High Sensitivity+C.LAB.BRZ ordered. EDMS EDMS 21:48 21:44 Home Meds: amitriptyline 25 mg Oral tablet; al5 al5 01/26 02:49 02:00 Telemetry/MedSurg (Inpatient) sp4 rv1 02:49 02:00 sp4 rv1 03:49 03:49 Chest For PE Angio+CT.RAD.BRZ ordered. EDMS EDMS 14:01 02:49 [facility] ER HOLD rv1 bd 14:01 02:49 ERHOLD- rv1 bd
[2024-01-27] MEDS ORDERED: DIAZEPAM 2 MG TABLET ONE (02:05)
[2024-01-27 02:35] LABS: Arterial Blood Carboxyhemoglob 1.1 % (0-1.5); Blood Gas Oxyhemoglobin 88.5 % (94-97); Blood Gas THB 11.2 g/dl (12-18); Blood O2 Saturation 91.1 % (92-98.5)
[2024-01-27 03:30] LABS: Barbiturates NEGATIVE (NEGATIVE); Benzodiazepines NEGATIVE (NEGATIVE); Cocaine NEGATIVE (NEGATIVE); METHAMPHETAM NEGATIVE (NEGATIVE); Methadone NEGATIVE (NEGATIVE); Opiates NEGATIVE (NEGATIVE); Phencyclidine NEGATIVE (NEGATIVE); THC Cannibis NEGATIVE (NEGATIVE)
[2024-01-27] MEDS ORDERED: NA CHLORIDE 0.9% 1,000 ML ONE (03:53)
[2024-01-27] MEDS ORDERED: NA CHLORIDE 0.9% 500 ML ONE (03:54)
[2024-01-27] MEDS ORDERED: ALBUMIN HUMAN 25% 100 ML IV ONE (03:54)
--- NOTE | 2024-01-27 05:03 | P.HP ---
Certification for Inpatient With expected LOS: >2 Midnights Practitioner: I am a practitioner with admitting privileges, knowledge of patient current condition, hospital course, and medical plan of care. Services: Services provided to patient in accordance with Admission requirements found in Title 42 Section 412.3 of the Code of Federal Regulations Patient History Date of Service: 01/27/24 Reason for admission: sob History of Present Illness: 68-year-old male with history of COPD, alcohol use, PE, atrial fibrillation on Eliquis, lung cancer currently receiving radiation therapy [facility] presented to the emergency room with EMS with complaints of shortness of breath cough that started several days ago and progressively worsened. CT scan chest showed mild to moderate reticulonodular opacities within the lower lobe may indicate infection or pneumonitis Allergies No Known Allergies Allergy (Verified 10/07/22 13:27) Home Medications: Apixaban [Eliquis] 5 mg PO BID 30 Days #60 tablet 08/30/22 Midodrine HCl [Proamatine*] 5 mg PO BID 30 Days #30 tab 08/31/22 Ensure Enlive 237 ml PO TID #90 can 08/21/23 Memantine HCl [Namenda*] 10 mg PO DAILY #30 tab 08/21/23 Pantoprazole [Protonix Tab*] 40 mg PO BID #60 tab 08/21/23 Quetiapine [Seroquel*] 25 mg PO BEDTIME #30 tab 08/21/23 levoFLOXacin [Levaquin*] 750 mg PO DAILY #7 tab 08/21/23 - Past Medical/Surgical History Has patient received pneumonia vaccine in the past: Yes Diabetic: No -: Chronic pain -: Anorexia -: COPDon home O2 -: History of lung cancer, small cell lung cancer with mets -: Pulmonary Embolism -: Atrial fibrillation -: None Psychosocial/ Personal History: Patient is retired and lives at home with his . - Family History Sister -: Cancer Notes: lung Father -: Heart disease Mother -: Other (see notes) Notes: alzheimers - Social History Smoking Status: Current every day smoker Alcohol use: No CD- Drugs: No Caffeine use: Yes Review of Systems 10-point ROS is otherwise unremarkable General: Malaise Respiratory: Cough, Shortness of Breath Physical Examination - Physical Exam General: Mild distress, Other (Cachectic) HEENT: Atraumatic Neck: Supple Respiratory: Other (Respirations nonlabored, wheeze present) Cardiovascular: Regular rate/rhythm Gastrointestinal: Soft and benign, Non-distended Musculoskeletal: Other (No synovitis or swelling present) - Studies Laboratory Data (last 24 hrs) 01/26/24 01/26/24 01/26/24 21:39 21:39 21:39 WBC 8.30 Hgb 10.6 L Hct 31.7 L Plt Count 168 PT 12.6 H INR 1.13 APTT 31.7 Sodium 137 Potassium 3.1 L BUN 11 Creatinine 0.70 Glucose 149 H Magnesium 1.8 Total Bilirubin 0.7 AST < 10 L ALT < 14 L Alkaline Phosphatase 75 Lipase 9 L Assessment and Plan - Problems (Diagnosis) (1) Pneumonia Current Visit: Yes Status: Acute (2) COPD exacerbation Current Visit: No Status: Acute (3) History of lung cancer Current Visit: No Status: Chronic (4) History of pulmonary embolism Current Visit: No Status: Chronic - Plan 68-year-old male with history of COPD, lung cancer currently receiving treatment at [facility], atrial fibrillation on Eliquis, history of PE presents to the emergency room with progressive worsening of dyspnea. Pneumonia Acute hypoxemic respiratory failure Lung cancer with treatment COPD exacerbation --Admit to [facility] [place] --Continue oxygen, as needed nebs, IV steroids, Rocephin and ceftriaxone History of PE Atrial fibrillation Elevated D-dimer --Await home medication reconciliation restart home medications including Eliquis --Currently rate controlled Hypokalemia --replace and recheck Hypotension --Treated in the ER currently BP stable will hold antihypertensive medications DVT: Eliquis - Advance Directives Does patient have a Living Will: No Does patient have a Durable POA for Healthcare: No
[2024-01-27] MEDS ORDERED: ACETAMINOPHEN 500 MG TAB PO PRN (05:22)
[2024-01-27] MEDS: IPRATROPIUM BROM 0.5MG/2.5ML NEB SCH (07:00)
[2024-01-27] MEDS ORDERED: ALBUTEROL 2.5 MG/3 ML NEB SOL ONE (07:39)
[2024-01-27] MEDS: ALBUTEROL 2.5 MG/3 ML NEB SOL NEB PRN (07:54)
[2024-01-27] MEDS: AZITHROMYCIN 1 GM PACKET PO SCH (08:00)
[2024-01-27] MEDS ORDERED: AZITHROMYCIN 1 GM PACKET ONE (08:59)
[2024-01-27] MEDS ORDERED: APIXABAN 5 MG TABLET ONE (08:59)
[2024-01-27] MEDS ORDERED: CEFTRIAXONE 1000 MG/VIAL ONE (08:59)
[2024-01-27] MEDS ORDERED: NA CHLORIDE 0.9% 50 ML ONE (09:00)
[2024-01-27] MEDS ORDERED: ENOXAPARIN 40 MG/0.4 ML SQ SCH (09:00)
[2024-01-27] MEDS ORDERED: METHYLPREDNISOLONE 40 MG INJ ONE ×2 (09:06→10:27)
[2024-01-27] MEDS ORDERED: KCL 20 MEQ/100 mL IVPB 100 ML IV ONE (09:06)
[2024-01-27] MEDS: KCL 20 MEQ/100 mL IVPB 100 ML IV SCH (10:00)
[2024-01-27] MEDS: CEFTRIAXONE 1,000 MG in NA CHLORIDE 0.9% 50 ML IVPB SCH (10:17)
[2024-01-27] MEDS: APIXABAN 5 MG TABLET PO SCH (10:18)
[2024-01-27] MEDS: METHYLPREDNISOLONE 40 MG INJ IV SCH (10:18)
[2024-01-27 11:29] LABS: Specific Gravity 1.023 (1.005-1.030); Urine Bilirubin NEGATIVE (Negative); Urine Blood Negative (Negative); Urine Clarity Clear (Clear); Urine Color Light-Yellow (Yellow); Urine Glucose NEGATIVE (Negative); Urine Ketones NEGATIVE (Negative); Urine Microscopic Reflex YN NO UMIC; Urine Nitrite NEGATIVE (Negative); Urine Protein NEGATIVE (Negative); Urine Urobilinogen Normal (Normal); Urine pH 6.5 (5.0-7.0)
--- NOTE | 2024-01-27 12:26 | RAD REPORT ---
EXAM DESCRIPTION: CT chest angiography with intravenous contrast CLINICAL HISTORY: 68 years Male CHEST PAIN. TECHNIQUE: Following the administration of intravenous contrast, multiple high-resolution axial imag es of the chest were performed followed by sagittal and coronal reconstructed images. Axial, coronal and sagittal MIP images were also performed. The CT study is performed according to ALARA (as low as reasonably achievable) or ALARA/IMAGE GENTLY, with automatic adjustment of mA and/or kV according to patient size. Performed on: 01/27/2024 at 4:51 AM COMPARISON: CT chest without IV contrast performed on 01/26/[address] chest performed on 04/08/2023 FINDINGS: There is satisfactory visualization and contrast opacification of pulmonary arteries. No definite intra-arterial filling defects are identified to suggest acute or chronic pulmonary embolis m. The thoracic aorta is normal in caliber and contour without evidence of aneurysm or dissection. The lungs are well expanded. There is mild diffuse centrilobular emphysema. There is chronic scarring in the right lung apex with associated bronchiectatic changes there is lingular scarring and/or atel ectasis with associated bronchiectatic changes which have increased since 04/08/2023. There has also been interval development of diffuse reticulonodular opacities within both lower lobes as well as the right middle lobe since 04/08/2023. Findings are concerning for a multifocal infectious/inflammatory process. There are no pleural effusions. There is no pneumothorax. The central airways are patent. The heart is normal in size. There is no pericardial effusion. There is no reflux of contrast into th e hepatic veins to suggest right heart strain.The RV/LV ratio is within normal limits. There are mild coronary artery calcifications. There are prominent mediastinal and right hilar lymph nodes which may be reactive inflammatory in jim ure. No acute osseous abnormality is identified. The visualized upper abdominal structures are unremarkable. A biliary stent is present. The gallbladd er is surgically absent. IMPRESSION: 1. No evidence of acute or chronic pulmonary embolism, aortic aneurysm or aortic disse ction. 2. Mild diffuse centrilobular emphysema. 3. Chronic scarring in the right lung apex with associated bronchiectatic changes. There is also li ngular scarring and/or atelectasis with associated bronchiectatic changes which have increased since 04/08/2023. 4. Interval development of diffuse reticulonodular opacities within both lower lobes as well as the right middle lobe since 04/08/2023. Findings are concerning for a multifocal infectious/inflammatory process. 5. Mildly enlarged mediastinal and right hilar lymph nodes which are nonspecific may be reactive in flammatory in nature. 6. Biliary stent present. 7. Status post cholecystectomy. Electronically signed by: Laura Wright DO 01/27/2024 06:19 AM CDT RP Due to temporary technical issues with the PACS/Fluency reporting system, reports are being signed by the in house radiologist without review as a courtesy to ensure prompt reporting. The interpreting r adiologist is fully responsible for the content of the report
--- NOTE | 2024-01-27 14:46 | P.PN ---
Date of Service: 01/27/24 Pt seen and examined. Pt is a 68 yo male with past medical history of A. fib and PE who presents with COPD exacerbation and pna. A/P: Pneumonia: Will continue rocephin and f/u blood cx. Acute COPD exacerbation: Will continue iv abx, steroid, duoneb and 2L BNC. Consulted Pulm. Acute hypoxemic respiratory failure: Due to pneumonia and COPD exacerbation. Will continue iv abx and prn duoneb. Lung cancer with treatment: Will f/u with Oncologist on outpt. History of PE: Pt has elevated D-dimer. Will continue eliquis. Atrial fibrillation: HR is controlled. Will continue telemetry, eliquis and BB. Hypokalemia: K is 3.1. Will replete and monitor. Elevated BNP: BNP is 444. Will f/u Echo. Hypotension: Treated in the ER, currently BP stable will hold antihypertensive medications DVT: Eliquis Dispo: Pending hospital course.
[2024-01-27] MEDS: QUETIAPINE 100MG TAB PO SCH (22:39)
[2024-01-27] MEDS: [UNRECOGNIZED DRUG - OTHER] SL ONE (22:43)
[2024-01-27] MEDS: BUPRENORPHINE SL ONE (22:43)
[2024-01-28 04:43] LABS: Absolute Lymphocytes (CBC) 0.8 K/uL (0.7-4.9); Absolute Monocytes 0.2 K/uL (0.1-1.3); Absolute Neutrophil 7.3 K/uL (1.8-8.0); Basophils % 0.1 % (0-1.3); Hematocrit 28.4 % (39.6-49.0); Hemoglobin 9.5 g/dL (13.6-17.9); Lymphocytes % 9.7 % (15.3-44.8); MCHC 33.4 g/dL (32.0-36.0); MCV 86.9 fL (80-100); MPV 8.3 fL (7.6-11.3); Monocytes % 2.3 % (3.3-12.3); Neutrophils % 87.9 % (41.7-73.7); Platelets 177 thou/uL (152-406); RBC Red Blood Cell Count 3.27 M/uL (4.33-5.43); Red Cell Distribution Width 14.9 % (12.1-15.2)
[2024-01-28 05:04] LABS: Albumin 2.8 g/dL (3.4-5.0); Albumin/Globulin Ratio 0.8 (1.1-1.8); Alkaline Phosphatase 62 U/L (45-117); Anion Gap 6.6 mEq/L (5.0-15.0); BUN Blood Urea Nitrogen 21 mg/dL (7-18); Bicarbonate 30 mEq/L (21-32); Bilirubin Total 0.3 mg/dL (0.2-1.0); Globulin 3.3 g/dL (2.3-3.5); Glomerular Filtration Rate 107 ml/min (=/>90); Glucose Level 188 mg/dL (74-106); Magnesium 2.1 mg/dL (1.6-2.4); Potassium 3.6 mEq/L (3.5-5.1); Protein, Total 6.1 g/dL (6.4-8.2); Sodium Level 141 mEq/L (136-145)
[2024-01-28 05:12] LABS: ALT/SGPT < 14 U/L (16-61); AST/SGOT < 10 U/L (15-37)
[2024-01-28 05:20] LABS: Band Neutrophils 33 % (0-1); Differential Total Cells Count 100; Lymphocytes 5 % (15-42); Metamyelocytes 1 % (0-0); Monocytes 2 % (0-10); Segmented Neutrophils 59 % (40-80)
[2024-01-28 05:21] LABS: Blood Morphology Comment NOT SEEN (NOT SEEN); Platelet Estimate ADEQ
[2024-01-28] MEDS: QUETIAPINE 25 MG TAB PO SCH (08:27)
[2024-01-28] MEDS: BUPRENORPHINE NALOXONE PO SCH ×2 (08:38→21:00)
--- NOTE | 2024-01-28 11:00 | P.PN ---
Subjective Date of Service: 01/28/24 Chief Complaint: sob Pt is resting comfortably in bed. He is using 4L BNC. He uses 5l at home. Pt is asking for his midodrine. No other complaints. Review of Systems General: Unremarkable Eyes: Unremarkable ENT: Unremarkable Respiratory: SOB with Excertion Cardiovascular: Unremarkable Gastrointestinal: Unremarkable Genitourinary: Unremarkable Musculoskeletal: Unremarkable Integumentary: Unremarkable Neurological: Unremarkable Lymphatics: Unremarkable Physical Examination - Vital Signs Temperature: 97.4 F Blood Pressure: 104/55 Pulse: 61 Respirations: 18 Pulse Ox (%): 98 - Physical Exam General: Alert, In no apparent distress, Oriented x3 HEENT: Atraumatic, Normocephalic, PERRLA Neck: Supple, 2+ carotid pulse no bruit, JVD not distended Respiratory: Normal air movement, Diminished Cardiovascular: No edema, Normal pulses, Regular rate/rhythm, Normal S1 S2 Capillary refill: <2 Seconds Gastrointestinal: Normal bowel sounds, Soft and benign, Non-distended Musculoskeletal: No clubbing, No swelling Integumentary: No rashes, No breakdown, No significant lesion Neurological: Normal gait, Normal speech, Normal strength at 5/5 x4 extr Lymphatics: No axilla or inguinal lymphadenopathy Assessment And Plan - Plan Pneumonia: Will continue rocephin and f/u blood cx. CT chest shows bibasilar infiltrates but no PE. Acute COPD exacerbation: Will continue iv abx, steroid, duoneb and 4L BNC. He uses 5L at home. Consulted Pulm. Acute hypoxemic respiratory failure: Due to pneumonia and COPD exacerbation. Will continue iv abx and prn duoneb. Lung cancer with treatment: Will f/u with Oncologist on outpt. Hypotension: Will continue midodrine. History of PE: Pt has elevated D-dimer. Will continue eliquis. Atrial fibrillation: HR is controlled. Will continue telemetry, eliquis and BB. Hypokalemia: K is 3.6 <- 3.1. Will replete and monitor. Elevated BNP: BNP is 444. Will f/u Echo. Hypotension: Treated in the ER, currently BP stable will hold antihypertensive medications DVT: Eliquis Dispo: Pending hospital course.
--- NOTE | 2024-01-28 11:47 | EKG ---
Test Date: 2024-01-26 Test Time: 21:57:54 Offset Press Assistant: NALLELY MEASUREMENT RESULTS: Intervals: Rate: 102 MT: 146 QRSD: 88 QT: 416 QTc: 542 [place]: P: 78 MT: 146 QRS: 55 T: 65 INTERPRETIVE STATEMENTS: Sinus tachycardia Nonspecific T wave abnormality Abnormal ECG Compared to ECG 08/14/2023 01:35:10 T-wave abnormality now present Sinus rhythm no longer present Myocardial infarct finding no longer present Electronically Signed On 01-28-24 11:44:17 CDT by Akhil Mathews
[2024-01-28] MEDS: SUCRALFATE 1 GM TABLET PO SCH (12:40)
[2024-01-28] MEDS: MIDODRINE HCL 5 MG TABLET PO SCH (12:40)
--- NOTE | 2024-01-28 13:02 | ECHO ---
HEIGHT: 5 ft 3 in WEIGHT: 95 lb 0 oz DATE OF STUDY: 01/28/[address]: Sydney Fontanez MD 2-DIMENSIONAL: YES M.MODE: YES DOPPLER: YES COLOR FLOW: YES TDS: YES PORTABLE: YES DEFINITY: BUBBLE STUDY: DIAGNOSIS: ELEVATED BNP CARDIAC HISTORY: CATHERIZATION: NO SURGERY: NO PROSTHETIC VALVE: NO PACEMAKER: NO MEASUREMENTS (cm) DIASTOLIC (NORMALS) SYSTOLIC (NORMALS) IVSd 0.8 (0.6-1.2) LA Diam 2.2 (1.9-4.0) LVEF 60-65% LVIDd 3.3 (3.5-5.7) LVIDs 2.3 (2.0-3.5) %FS 31% LVPWd 0.8 (0.6-1.2) Ao Diam 2.4 (2.0-3.7) 2 DIMENSIONAL ASSESSMENT: RIGHT ATRIUM: NORMAL LEFT ATRIUM: NORMAL RIGHT VENTRICLE: NORMAL LEFT VENTRICLE: NORMAL TRICUSPID VALVE: TRACE TRICUSPID REGURGITATION MITRAL VALVE: TRACE MITRAL REGURGITATION PULMONIC VALVE: NORMAL AORTIC VALVE: NORMAL PERICARDIAL EFFUSION: NONE AORTIC ROOT: NORMAL LEFT VENTRICULAR WALL MOTION: NORMAL DOPPLER/COLOR FLOW: NORMAL COMMENTS: 1. NORMAL LEFT VENTRICULAR SYSTOLIC FUNCTION, EJECTION FRACTION 60-65%, NORMAL WALL MOTION 2. NORMAL DIASTOLIC FUNCTION 3. MILD PULMONARY HYPERTENSION (RIGHT VENTRICULAR SYSTOLIC PRESSURE 30-35 mmHg) 4. NORMAL FILLING PRESSURE (RIGHT ATRIUM 0-5 mmHg) TECHNOLOGIST: CHANDAN LOPEZ
[2024-01-28] MEDS: ENSURE ENLIVE 237 ML CAN PO SCH (16:56)
[2024-01-28] MEDS: MEMANTINE HCL 10 MG TABLET PO SCH (20:58)
[2024-01-28] MEDS: PANTOPRAZOLE 40MG TABLET PO SCH (20:59)
[2024-01-28] MEDS ORDERED: APIXABAN 5 MG TABLET PO SCH (21:00)
--- NOTE | 2024-01-29 12:07 | P.DS ---
Admission Date: 01/27/24 Discharge Date: 01/29/24 Disposition: ROUTINE DISCHARGE Discharge Condition: GOOD Reason for Admission: sob Brief History of Present Illness: 68-year-old male with history of COPD, alcohol use, PE, atrial fibrillation on Eliquis, lung cancer currently receiving radiation therapy [facility] presented to the emergency room with EMS with complaints of shortness of breath cough that started several days ago and progressively worsened. CT scan chest showed mild to moderate reticulonodular opacities within the lower lobe may indicate infection or pneumonitis Hospital Course: Pt is a 68yo male with past medical history of COPD, alcohol use, PE, atrial fibrillation on Eliquis, and lung cancer (currently receiving radiation therapy at [facility]) who presented to the emergency room with complaints of shortness of breath cough that started several days ago and progressively worsened. CT scan chest showed mild to moderate reticulonodular opacities within the lower lobe. we admitted pt for pneumonia and acute COPD. CT chest was negative for PE. We continie iv steroid, abx, duoneb, and oxygen. We repleted electrolytes and continued home meds for other electrolytes. Echo showed Ef of 60 - 65%. He was back to his baseline and in NAD prior to discharge. Vital Signs/Physical Exam: Temp Pulse Resp BP Pulse Ox 97.3 F 80 18 113/68 92 01/29/24 08:00 01/29/24 08:00 01/29/24 08:00 01/29/24 08:00 01/29/24 08:00 Laboratory Data at Discharge: WBC 8.30 thou/uL (4.3-10.9) 01/28/24 04:21 Hgb 9.5 g/dL (13.6-17.9) L 01/28/24 04:21 Hct 28.4 % (39.6-49.0) L 01/28/24 04:21 Plt Count 177 thou/uL (152-406) 01/28/24 04:21 PT 12.6 SECONDS (9.4-12.5) H 01/26/24 21:39 INR 1.13 01/26/24 21:39 APTT 31.7 SECONDS (24.3-36.9) 01/26/24 21:39 Sodium 141 mEq/L (136-145) 01/28/24 04:21 Potassium 3.6 mEq/L (3.5-5.1) 01/28/24 04:21 BUN 21 mg/dL (7-18) H 01/28/24 04:21 Creatinine 0.55 mg/dL (0.70-1.30) L 01/28/24 04:21 Glucose 188 mg/dL (74-106) H 01/28/24 04:21 Magnesium 2.1 mg/dL (1.6-2.4) 01/28/24 04:21 Total Bilirubin 0.3 mg/dL (0.2-1.0) 01/28/24 04:21 AST < 10 U/L (15-37) L 01/28/24 04:21 ALT < 14 U/L (16-61) L 01/28/24 04:21 Alkaline Phosphatase 62 U/L (45-117) 01/28/24 04:21 Lipase 9 U/L (13-75) L 01/26/24 21:39 Home Medications: Apixaban [Eliquis] 5 mg PO BID 30 Days #60 tablet 08/30/22 Buprenorphine HCl/Naloxone HCl [Buprenorphine-Nalox 8-2Mg Film] 0.5 mg PO TID 01/27/24 Memantine HCl [Namenda*] 10 mg PO BEDTIME 01/27/24 Midodrine HCl [Proamatine*] 5 mg PO TID 01/27/24 Pantoprazole [Protonix Tab*] 40 mg PO BEDTIME 01/27/24 Quetiapine Fumarate [Seroquel] 50 mg PO 0800,1300,1700 01/27/24 Quetiapine Fumarate [Seroquel] 150 mg PO 2200 01/27/24 Sucralfate [Carafate*] 1 gm PO QID 01/27/24 Azithromycin Tab [Zithromax*] 250 mg PO ZPAK #1 brenda 01/29/24 predniSONE [Deltasone*] 10 mg PO DAILY 12 Days #30 tab 01/29/24 New Medications: predniSONE [Deltasone*] 10 mg PO DAILY 12 Days #30 tab Azithromycin Tab [Zithromax*] 250 mg PO ZPAK #1 brenda Physician Discharge Instructions: COntinue ad pascual activity. Take zpak and prednisone taper as prescribed. Follow up with PCP and Oncologist in clinic within 1 - 2 weeks Diet: AHA Activity: Ad pascual Followup: Ileana More NP [Primary Care Provider] -
[2024-01-30 04:03] VITALS: BMI 16.9
--- NOTE | 2024-01-30 12:34 | P.PN ---
Subjective Date of Service: 01/30/24 Chief Complaint: sob Pt is resting comfortably in bed. He is using 5L BNC. He is oxygenating 89% on his home oxygen concentrator. Will cancel discharge and continue steroid and abx. No other complaints. Review of Systems General: Unremarkable Eyes: Unremarkable ENT: Unremarkable Respiratory: SOB with Excertion Cardiovascular: Unremarkable Gastrointestinal: Unremarkable Genitourinary: Unremarkable Musculoskeletal: Unremarkable Integumentary: Unremarkable Neurological: Unremarkable Lymphatics: Unremarkable Physical Examination - Vital Signs Temperature: 97.3 F Blood Pressure: 139/88 Pulse: 77 Respirations: 16 Pulse Ox (%): 94 - Physical Exam General: Alert, In no apparent distress, Oriented x3 HEENT: Atraumatic, Normocephalic, PERRLA Neck: Supple, 2+ carotid pulse no bruit, JVD not distended Respiratory: Clear to auscultation bilaterally, Normal air movement Cardiovascular: No edema, Normal pulses, Regular rate/rhythm, Normal S1 S2 Capillary refill: <2 Seconds Gastrointestinal: Normal bowel sounds, Soft and benign, Non-distended Musculoskeletal: No clubbing, No swelling, No contractures Integumentary: No rashes, No breakdown, No significant lesion Neurological: Normal gait, Normal speech, Normal strength at 5/5 x4 extr, Normal tone, Sensation intact Lymphatics: No axilla or inguinal lymphadenopathy Assessment And Plan - Plan Pneumonia: Will continue rocephin and f/u blood cx. CT chest shows bibasilar infiltrates but no PE. Acute COPD exacerbation: Will continue iv abx, steroid, duoneb and 4L BNC. He uses 5L at home. Consulted Pulm. He is oxygenating 89% on his home oxygen concentrator. Will cancel the discharge and observe pt. Acute hypoxemic respiratory failure: Due to pneumonia and COPD exacerbation. Will continue iv abx and prn duoneb. Lung cancer with treatment: Will f/u with Oncologist on outpt. Hypotension: Will continue midodrine. History of PE: Pt has elevated D-dimer. Will continue eliquis. Atrial fibrillation: HR is controlled. Will continue telemetry, eliquis and BB. Hypokalemia: K is 3.6 <- 3.1. Will replete and monitor. Elevated BNP: BNP is 444. Will f/u Echo. Hypotension: Treated in the ER, currently BP stable will hold antihypertensive medications DVT: Eliquis Dispo: Pending hospital course.
--- NOTE | 2024-01-30 13:39 | EKG ---
Test Date: 2024-01-26 Test Time: 21:57:15 Light Cleaner: NALLELY MEASUREMENT RESULTS: Intervals: Rate: 102 CA: 152 QRSD: 76 QT: 432 QTc: 563 [place]: P: 70 CA: 152 QRS: 50 T: 57 INTERPRETIVE STATEMENTS: Sinus tachycardia ST & T wave abnormality, consider inferior ischemia Abnormal ECG Compared to ECG 08/14/2023 01:35:10 ST (T wave) deviation now present Possible ischemia now present Sinus rhythm no longer present Myocardial infarct finding no longer present Electronically Signed On 01-30-24 13:32:47 CDT by Larry Aly
--- NOTE | 2024-01-30 13:39 | EKG ---
Test Date: 2024-01-27 Test Time: 12:22:32 Scale Agent: SURENDRA MEASUREMENT RESULTS: Intervals: Rate: 74 NC: 154 QRSD: 74 QT: 434 QTc: 481 [place]: P: 60 NC: 154 QRS: 5 T: 42 INTERPRETIVE STATEMENTS: Normal sinus rhythm Low voltage QRS Prolonged QT Abnormal ECG Compared to ECG 01/26/2024 21:57:54 Low QRS voltage now present Prolonged QT interval now present Sinus tachycardia no longer present T-wave abnormality no longer present Electronically Signed On 01-30-24 13:32:38 CDT by Larry Aly
--- NOTE | 2024-01-31 11:05 | P.PN ---
Subjective Date of Service: 01/31/24 Chief Complaint: sob Pt is resting comfortably in bed. He is using 6L BNC. He is oxygenating 95% on his home oxygen concentrator when inactive but it drops to 85 when he gets up. Will continue steroid and abx. No other complaints. Review of Systems General: Unremarkable Eyes: Unremarkable ENT: Unremarkable Respiratory: SOB with Excertion Cardiovascular: Unremarkable Gastrointestinal: Unremarkable Genitourinary: Unremarkable Musculoskeletal: Unremarkable Integumentary: Unremarkable Neurological: Unremarkable Lymphatics: Unremarkable Physical Examination - Vital Signs Temperature: 98.3 F Blood Pressure: 120/76 Pulse: 75 Respirations: 18 Pulse Ox (%): 92 - Physical Exam General: Alert, In no apparent distress, Oriented x3, Cachectic HEENT: Atraumatic, Normocephalic, PERRLA Neck: Supple, 2+ carotid pulse no bruit, JVD not distended Respiratory: Normal air movement, Expiratory wheezes Cardiovascular: No edema, Normal pulses, Regular rate/rhythm, Normal S1 S2 Capillary refill: <2 Seconds Gastrointestinal: Normal bowel sounds, Soft and benign, Non-distended Musculoskeletal: No clubbing, No swelling, No contractures Integumentary: No rashes, No breakdown, No significant lesion Neurological: Normal gait, Normal speech, Normal strength at 5/5 x4 extr, Normal tone Lymphatics: No axilla or inguinal lymphadenopathy Assessment And Plan - Plan Pneumonia: Will continue rocephin and f/u blood cx. CT chest shows bibasilar infiltrates but no PE. Acute COPD exacerbation: Will continue iv abx, steroid, duoneb and 6L BNC. He uses 5L at home. Consulted Pulm. He is oxygenating 95% on his home oxygen concentrator when inactive but it drops to 85% when he tries to get out of the bed. Will observe pt. Acute hypoxemic respiratory failure: Due to pneumonia and COPD exacerbation. Will continue iv abx and prn duoneb. Lung cancer with treatment: Will f/u with Oncologist on outpt. Hypotension: Will continue midodrine. History of PE: Pt has elevated D-dimer. Will continue eliquis. Atrial fibrillation: HR is controlled. Will continue telemetry, eliquis and BB. Hypokalemia: K is 3.6 <- 3.1. Will replete and monitor. Elevated BNP: BNP is 444. Will f/u Echo. Hypotension: Treated in the ER, currently BP stable will hold antihypertensive medications DVT: Eliquis Dispo: Pending hospital course.
[2024-01-31] MEDS: QUETIAPINE 25 MG TAB PO SCH (14:00)
[2024-01-31] MEDS ORDERED: QUETIAPINE 25 MG TAB PO SCH (17:00)
--- NOTE | 2024-02-01 08:38 | P.PN ---
Subjective Date of Service: 02/01/24 Chief Complaint: sob Pt is resting comfortably in bed. He is using 6L BNC and oxygenating 99% on his home oxygen concentrator when inactive but it drops to 85 when he gets up. Will continue steroid and abx. No other complaints. Review of Systems General: Unremarkable Eyes: Unremarkable ENT: Unremarkable Respiratory: SOB with Excertion Cardiovascular: Unremarkable Gastrointestinal: Unremarkable Genitourinary: Unremarkable Musculoskeletal: Unremarkable Integumentary: Unremarkable Neurological: Unremarkable Lymphatics: Unremarkable Physical Examination - Vital Signs Temperature: 97.9 F Blood Pressure: 135/77 Pulse: 69 Respirations: 16 Pulse Ox (%): 91 - Physical Exam General: Alert, In no apparent distress, Oriented x3, Cachectic HEENT: Atraumatic, Normocephalic, PERRLA Neck: Supple, 2+ carotid pulse no bruit, JVD not distended Respiratory: Normal air movement, Expiratory wheezes Cardiovascular: No edema, Normal pulses, Regular rate/rhythm, Normal S1 S2 Capillary refill: <2 Seconds Gastrointestinal: Normal bowel sounds, Soft and benign, Non-distended Musculoskeletal: No clubbing, No swelling, No contractures Integumentary: No rashes, No breakdown, No significant lesion Neurological: Normal gait, Normal speech, Normal strength at 5/5 x4 extr, Normal tone, Sensation intact Lymphatics: No axilla or inguinal lymphadenopathy - Studies Microbiology Data (last 24 hrs): 01/26/24 21:39 Blood - Blood Aerobic Blood Culture - Final No growth in 5 days. 01/26/24 21:39 Blood - Blood Anaerobic Blood Culture - Final No growth in 5 days. 01/26/24 21:39 Blood - Blood Aerobic Blood Culture - Final No growth in 5 days. 01/26/24 21:39 Blood - Blood Anaerobic Blood Culture - Final No growth in 5 days. Assessment And Plan - Plan Pneumonia: Will continue rocephin and f/u blood cx. CT chest shows bibasilar infiltrates but no PE. Acute COPD exacerbation: Will continue iv abx, steroid, duoneb and 6L BNC. He uses 5L at home. Consulted Pulm. He is oxygenating 95% on his home oxygen concentrator when inactive but it drops to 85% when he tries to get out of the bed. Will observe pt. Acute hypoxemic respiratory failure: Due to pneumonia and COPD exacerbation. Will continue iv abx and prn duoneb. Lung cancer with treatment: Will f/u with Oncologist on outpt. Hypotension: Will continue midodrine. History of PE: Pt has elevated D-dimer. Will continue eliquis. Atrial fibrillation: HR is controlled. Will continue telemetry, eliquis and BB. Hypokalemia: K is 3.6 <- 3.1. Will replete and monitor. Elevated BNP: BNP is 444. Will f/u Echo. Severe malnutrition: Pt was encouraged to eat more. 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 Hypotension: Treated in the ER, currently BP stable will hold antihypertensive medications DVT: Eliquis Dispo: Pending hospital course.
[2024-02-01] MEDS: QUETIAPINE 25 MG TAB PO SCH (08:56)
[2024-02-02] MEDS: GUAIFENESIN 600 MG SA TAB PO SCH (05:36)
--- NOTE | 2024-02-02 09:40 | P.PN ---
Subjective Date of Service: 02/02/24 Chief Complaint: sob Pt is resting comfortably in bed. He is using 6L BNC and oxygenating 99% on his home oxygen concentrator when inactive but it drops to 85 when he gets up. Will continue steroid and abx. Consulted Pulm. No other complaints. Review of Systems General: Unremarkable Eyes: Unremarkable ENT: Unremarkable Respiratory: SOB with Excertion Cardiovascular: Unremarkable Gastrointestinal: Unremarkable Genitourinary: Unremarkable Musculoskeletal: Unremarkable Integumentary: Unremarkable Neurological: Unremarkable Lymphatics: Unremarkable Physical Examination - Vital Signs Temperature: 98.0 F Blood Pressure: 112/79 Pulse: 79 Respirations: 12 Pulse Ox (%): 97 - Physical Exam General: Alert, In no apparent distress, Oriented x3 HEENT: Atraumatic, Normocephalic, PERRLA Neck: Supple, 2+ carotid pulse no bruit Respiratory: Clear to auscultation bilaterally, Normal air movement Cardiovascular: No edema, Normal pulses, Regular rate/rhythm, Normal S1 S2 Capillary refill: <2 Seconds Gastrointestinal: Normal bowel sounds, Soft and benign, Non-distended Musculoskeletal: No clubbing, No swelling, No contractures Integumentary: No rashes, No breakdown, No significant lesion Neurological: Normal gait, Normal speech, Normal strength at 5/5 x4 extr Lymphatics: No axilla or inguinal lymphadenopathy Assessment And Plan - Plan Pneumonia: Will continue rocephin and f/u blood cx. CT chest shows bibasilar infiltrates but no PE. Acute COPD exacerbation: Will continue iv abx, steroid, duoneb and 6L BNC. He uses 5L at home. Consulted Pulm. He is oxygenating 95% on his home oxygen concentrator when inactive but it drops to 85% when he tries to get out of the bed. Will observe pt. Consult Pulm. Acute hypoxemic respiratory failure: Due to pneumonia and COPD exacerbation. Will continue iv abx and prn duoneb. Lung cancer with treatment: Will f/u with Oncologist on outpt. Hypotension: Will continue midodrine. History of PE: Pt has elevated D-dimer. Will continue eliquis. Atrial fibrillation: HR is controlled. Will continue telemetry, eliquis and BB. Hypokalemia: K is 3.6 <- 3.1. Will replete and monitor. Elevated BNP: BNP is 444. Will f/u Echo. Severe malnutrition: Pt was encouraged to eat more. Will consult machine maintenance. Hypotension: Treated in the ER, currently BP stable will hold antihypertensive medications DVT: Eliquis Dispo: Pending hospital course.
--- NOTE | 2024-02-02 12:40 | P.CNS ---
Date of Consult: 02/02/24 Reason for Consult: COPD exacerbation pneumonia Chief Complaint: sob History of Present Illness: Patient is 68 years of age admitted with shortness of breath cough congestion he was sick for about 4 days prior to admission is not getting any better x-ray shows diffuse interstitial changes coughing up some productive sputum his cancer is under remission Allergies No Known Allergies Allergy (Verified 10/07/22 13:27) Home Medications: Apixaban [Eliquis] 5 mg PO BID 30 Days #60 tablet 08/30/22 Buprenorphine HCl/Naloxone HCl [Buprenorphine-Nalox 8-2Mg Film] 0.5 mg PO TID 01/27/24 Memantine HCl [Namenda*] 10 mg PO BEDTIME 01/27/24 Midodrine HCl [Proamatine*] 5 mg PO TID 01/27/24 Pantoprazole [Protonix Tab*] 40 mg PO BEDTIME 01/27/24 Quetiapine Fumarate [Seroquel] 50 mg PO 0800,1300,1700 01/27/24 Quetiapine Fumarate [Seroquel] 150 mg PO 2200 01/27/24 Sucralfate [Carafate*] 1 gm PO QID 01/27/24 Azithromycin Tab [Zithromax*] 250 mg PO ZPAK #1 brenda 01/29/24 Cefdinir [Cefdinir*] 300 mg PO BID 7 Days #14 tab 01/29/24 predniSONE [Deltasone*] 10 mg PO DAILY 12 Days #30 tab 01/29/24 - Past Medical/Surgical History Diabetic: No -: Chronic pain -: Anorexia -: COPDon home O2 -: History of lung cancer, small cell lung cancer with mets -: Pulmonary Embolism -: Atrial fibrillation -: None Psychosocial/ Personal History: Patient is retired and lives at home with his . - Family History Sister Medical History: Cancer Notes: lung Father Medical History: Heart disease Mother Medical History: Other (see notes) Notes: alzheimers - Social History Smoking Status: Current every day smoker Alcohol use: No CD- Drugs: No Caffeine use: Yes Review of Systems General: Weakness Respiratory: Cough, Shortness of Breath, Sputum Gastrointestinal: Nausea Genitourinary: Dysuria Physical Examination Temp Pulse Resp BP Pulse Ox 98.0 F 79 12 112/79 97 02/02/24 09:40 02/02/24 09:40 02/02/24 09:40 02/02/24 09:40 02/02/24 09:40 General: Alert, In no apparent distress, Oriented x3 Respiratory: Clear to auscultation bilaterally, Diminished Cardiovascular: No edema, Regular rate/rhythm, Normal S1 S2 Gastrointestinal: Normal bowel sounds, Soft and benign Musculoskeletal: No clubbing, No swelling - Problems (1) COPD exacerbation Current Visit: No Status: Acute Plan: Patient is 68 years of age has a history of COPD history of lung cancer which is in remission mated with cough congestion he has diffuse interstitial changes most likely bilateral pneumonia-is not helping and change him over to p.o. levofloxacin as sputum culture chemistries all reviewed blood count is normal blood cultures are negative his oxygenation is stable
[2024-02-02] MEDS: levoFLOXacin 750 MG TAB PO SCH (13:59)
[2024-02-02] MEDS: predniSONE 20 MG TAB PO SCH (20:30)
--- NOTE | 2024-02-03 12:48 | P.PN ---
Subjective Date of Service: 02/03/24 Chief Complaint: Exacerbation pneumonia Subjective: Improving (Kidney is doing better cough and congestion has improved no new complaint) Review of Systems General: Weakness Respiratory: Cough, Shortness of Breath Physical Examination - Vital Signs Temperature: 97.5 F Blood Pressure: 143/89 Pulse: 75 Respirations: 14 Pulse Ox (%): 100 - Physical Exam General: Alert, Oriented x3 Respiratory: Diminished, Expiratory wheezes Assessment And Plan - Current Problems (Diagnosis) (1) COPD exacerbation Current Visit: No Status: Acute Plan: Age 68 admitted with COPD exacerbation doing better cough and sputum volume have declined sputum cultures are still pending continue with levofloxacin continue with prednisone 20 mg twice a day for a week patient stable for discharge oxygenation satisfactory the scan reviewed showed emphysematous changes with bronchiectasis cancer is in remission white count is normal stable for discharge on levofloxacin 750 daily for 7 days
--- NOTE | 2024-02-03 13:16 | P.PN ---
Date of Service: 02/03/24 Subjective shortness of breath with exertion, reports oxygen desaturation 85% w ambulation Review of Systems Subjective 10-point ROS per HPI is otherwise unremarkable Physical Examination - Physical Exam vital signs reviewed General: Alert, In no apparent distress, Oriented x3, HEENT: Atraumatic, Normocephalic Neck: Supple Respiratory: Normal air movement, Diminished, Crackles/rales (In bases) Cardiovascular: Normal pulses, Regular rate/rhythm, Edema (Mild lower extremity) Capillary refill: <2 Seconds Gastrointestinal: Soft and benign, nontender Musculoskeletal: No clubbing, generalized weakness Integumentary: No rashes, No erythema Neurological: Normal speech, Normal tone, Normal affect Lymphatics: No axilla or inguinal lymphadenopathy External genitalia: Deferred Assessment and Plan - Problems (Diagnosis) Acute hypoxic respiratory failure secondary to bilateral lower lobe pneumonia Acute hypoxemic respiratory failure secondary to lung cancer COPD exacerbation --Admit to [facility] --Continue oxygen, as needed nebs, IV steroids, Rocephin and ceftriaxone 68-year-old male with history of COPD, lung cancer currently receiving treatment at [facility], atrial fibrillation on Eliquis, history of PE presents to the emergency room with progressive worsening of dyspnea. Follow-up with [facility] Plan order home O2 prior to discharge History of PE Atrial fibrillation Elevated D-dimer Chronic anticoagulation --Await home medication reconciliation restart home medications including Eliquis --Currently rate controlled Hypokalemia improved --replace as needed and recheck Hypotension --Treated in the ER currently BP stable will hold antihypertensive medications DVT: Eliquis - Advance Directives Does patient have a Living Will: No Does patient have a Durable POA for Healthcare: No <Fadumo Delarosa - Last Filed: 02/03/24 13:05> Patient chart was reviewed and patient was seen and examined. REHANA history and physical reviewed as well. Agree with the assessment and plan. Patient presented with acute COPD exacerbation. Patient with a history of lung cancer and getting treatment at [facility]. Patient scheduled for follow-up with CT imaging on . Patient requesting us to fax records to [facility]. Cli nically he appears to be doing well and will do physical therapy to assess his strength. If he is doing well then anticipate discharge over the next 48 hours.. Most of the MDM was done by myself and plan of care was discussed with REHANA as well as the patient. Plan to discharge in 48 to 72 hours. <Herminio Leonard - Last Filed: 02/04/24 04:09>
[2024-02-04 05:43] LABS: Absolute Monocytes 0.7 K/uL (0.1-1.3); Absolute Neutrophil 16.9 K/uL (1.8-8.0); Basophils % 0.1 % (0-1.3); Hematocrit 35.3 % (39.6-49.0); Hemoglobin 11.5 g/dL (13.6-17.9); Lymphocytes % 5.2 % (15.3-44.8); MCH 28.8 pg (27.0-35.0); MCHC 32.6 g/dL (32.0-36.0); MCV 88.4 fL (80-100); MPV 7.1 fL (7.6-11.3); Monocytes % 3.8 % (3.3-12.3); Neutrophils % 90.9 % (41.7-73.7); Platelets 397 thou/uL (152-406); RBC Red Blood Cell Count 3.99 M/uL (4.33-5.43); Red Cell Distribution Width 15.5 % (12.1-15.2)
[2024-02-04 05:57] LABS: Anion Gap 7.1 mEq/L (5.0-15.0); Magnesium 2.4 mg/dL (1.6-2.4); Potassium 4.1 mEq/L (3.5-5.1)
--- NOTE | 2024-02-04 06:48 | P.PN ---
Date of Service: 02/04/24 Subjective shortness of breath with exertion, reports oxygen desaturation 85% w ambulation Home O2 ordered for discharge Review of Systems Subjective 10-point ROS per HPI is otherwise unremarkable Physical Examination - Physical Exam vital signs reviewed General: Alert, In no apparent distress, Oriented x3, afebrile HEENT: Atraumatic, Normocephalic Neck: Supple Respiratory: Normal air movement, Diminished, Cardiovascular: Normal pulses, Regular rate/rhythm, Edema (Mild lower extremity) Capillary refill: <2 Seconds Gastrointestinal: Soft and benign, nontender Musculoskeletal: No clubbing, generalized weakness Integumentary: No rashes, No erythema Neurological: Normal speech, Normal tone, Normal affect Lymphatics: No axilla or inguinal lymphadenopathy External genitalia: Deferred Assessment and Plan - Problems (Diagnosis) Acute hypoxic respiratory failure secondary to bilateral lower lobe pneumonia improved Acute hypoxemic respiratory failure secondary to lung cancer COPD exacerbation improved --Admit to [facility] --Continue oxygen, as needed nebs, IV steroids, Rocephin and ceftriaxone 68-year-old male with history of COPD, lung cancer currently receiving treatment at [facility], atrial fibrillation on Eliquis, history of PE presents to the emergency room with progressive worsening of dyspnea. Follow-up with [facility] after discharge, appointment already scheduled Plan order home O2 prior to discharge History of PE Atrial fibrillation Elevated D-dimer Chronic anticoagulation --Await home medication reconciliation restart home medications including Anu michael --Currently rate controlled Hypokalemia improved --replace as needed and recheck Hypotension --Treated in the ER currently BP stable will hold antihypertensive medications DVT: Eliquis - Advance Directives Does patient have a Living Will: No Does patient have a Durable POA for Healthcare: No
[2024-02-04 07:12] LABS: Blood Morphology Comment NOT SEEN (NOT SEEN); Platelet Estimate ADEQ; White Blood Cell Scan OK (OK)
--- NOTE | 2024-02-04 08:08 | RAD REPORT ---
EXAM DESCRIPTION: RAD - Chest Single View - 02/04/2024 5:52 am CLINICAL HISTORY: pneumonia Chest pain. COMPARISON: Chest Single View dated 08/20/2023; Chest Single View dated 08/13/2023; Chest Single View dated 04/08/2023; Chest Single View dated 12/24/2022; Chest For Pe Angio dated 01/27/2024 FINDINGS: Portable technique limits examination quality. Prominent diffuse emphysema is noted. Right apical scarring again noted. A right-sided venous cathete r is in place with its tip at the level of the right axillary vein. Mild reticular opacities in the l eft lung base are present presumably related to mild infiltrate. Normal cardiac size with tortuous th oracic aorta.
[2024-02-04] MEDS: TAMSULOSIN 0.4 MG SR CAP PO SCH ×2 (09:48→21:59)
--- NOTE | 2024-02-05 06:27 | P.DS ---
Admission Date: 01/27/24 Discharge Date: 02/05/24 Disposition: ROUTINE DISCHARGE Discharge Condition: GOOD Reason for Admission: Exacerbation pneumonia Brief History of Present Illness: 68-year-old male with history of COPD, alcohol use, PE, atrial fibrillation on Eliquis, lung cancer currently receiving radiation therapy MD Isaac presented to the emergency room with EMS with complaints of shortness of breath cough that started several days ago and progressively worsened. CT scan chest showed mild to moderate reticulonodular opacities within the lower lobe may indicate infection or pneumonitis - Physical Exam General: Mild distress, Other (Cachectic) HEENT: Atraumatic Neck: Supple Respiratory: Other (Respirations nonlabored, wheeze present) Cardiovascular: Regular rate/rhythm Gastrointestinal: Soft and benign, Non-distended Musculoskeletal: Other (No synovitis or swelling present) Hospital Course: 68-year-old male with history of COPD, alcohol use, PE, atrial fibrillation on Eliquis, lung cancer currently receiving radiation therapy MD Isaac presented to the emergency room with EMS with complaints of shortness of breath cough that started several days ago and progressively worsened. CT scan chest showed mild to moderate reticulonodular opacities within the lower lobe may indicate infection or pneumonitis. He was noted to have COPD exacerbation, pneumonia, was treated with IV antibiotics, nebulizers, steroids, plan to discharge home, patient needs to follow-up with MD Isaac after discharge. Medication Flomax Levaquin 1 tab daily for 7 days Prednisone 20 mg p.o. twice daily for 10 days Guaifenesin with codeine cough syrup Continue home medicines as previously prescribed GOAL: Clear understanding of disease process INSTRUCTIONS: Physician Discharge Instructions: -Follow-up with MD Isaac after discharge appointment already scheduled. -Follow-up with PCP in 1 to 2 weeks -Please call Dr. Leonard at [phone] if any questions regarding hospital stay -Please call nursing station at [phone] if any nursing or medication questions -Return to the emergency room if symptoms worsen Diet: ADA, low sodium Activity: Fall precautions Vital Signs/Physical Exam: Temp Pulse Resp BP Pulse Ox 97.8 F 79 20 107/76 93 02/05/24 04:00 02/05/24 04:00 02/05/24 04:00 02/05/24 04:00 02/05/24 04:00 Laboratory Data at Discharge: WBC 18.60 thou/uL (4.3-10.9) H 02/04/24 05:20 Hgb 11.5 g/dL (13.6-17.9) L 02/04/24 05:20 Hct 35.3 % (39.6-49.0) L 02/04/24 05:20 Plt Count 397 thou/uL (152-406) 02/04/24 05:20 PT 12.6 SECONDS (9.4-12.5) H 01/26/24 21:39 INR 1.13 01/26/24 21:39 APTT 31.7 SECONDS (24.3-36.9) 01/26/24 21:39 Sodium 139 mEq/L (136-145) 02/04/24 05:20 Potassium 4.1 mEq/L (3.5-5.1) 02/04/24 05:20 BUN 25 mg/dL (7-18) H 02/04/24 05:20 Creatinine 0.56 mg/dL (0.70-1.30) L 02/04/24 05:20 Glucose 136 mg/dL (74-106) H 02/04/24 05:20 Magnesium 2.4 mg/dL (1.6-2.4) 02/04/24 05:20 Total Bilirubin 0.3 mg/dL (0.2-1.0) 01/28/24 04:21 AST < 10 U/L (15-37) L 01/28/24 04:21 ALT < 14 U/L (16-61) L 01/28/24 04:21 Alkaline Phosphatase 62 U/L (45-117) 01/28/24 04:21 Lipase 9 U/L (13-75) L 01/26/24 21:39 Home Medications: Apixaban [Eliquis] 5 mg PO BID 30 Days #60 tablet 08/30/22 Buprenorphine HCl/Naloxone HCl [Buprenorphine-Nalox 8-2Mg Film] 0.5 mg PO TID 01/27/24 Memantine HCl [Namenda*] 10 mg PO BEDTIME 01/27/24 Midodrine HCl [Proamatine*] 5 mg PO TID 01/27/24 Pantoprazole [Protonix Tab*] 40 mg PO BEDTIME 01/27/24 Quetiapine Fumarate [Seroquel] 50 mg PO 0800,1300,1700 01/27/24 Quetiapine Fumarate [Seroquel] 150 mg PO 2200 01/27/24 Sucralfate [Carafate*] 1 gm PO QID 01/27/24 Guaifen W/Codeine Syrup [ROBITUSSIN A-C Syrup] 10 ml PO Q12HP PRN #150 ml 02/05/24 Quetiapine [Seroquel*] 25 mg PO TID #90 tab 02/05/24 Tamsulosin [Flomax*] 0.4 mg PO BEDTIME #30 cap 02/05/24 levoFLOXacin [Levaquin*] 750 mg PO DAILY #7 tab 02/05/24 predniSONE [Prednisone*] 20 mg PO BID #20 tab 02/05/24 New Medications: Tamsulosin [Flomax*] 0.4 mg PO BEDTIME #30 cap levoFLOXacin [Levaquin*] 750 mg PO DAILY #7 tab predniSONE [Prednisone*] 20 mg PO BID #20 tab Guaifen W/Codeine Syrup [ROBITUSSIN A-C Syrup] 10 ml PO Q12HP PRN #150 ml PRN Reason: Cough Quetiapine [Seroquel*] 25 mg PO TID #90 tab Physician Discharge Instructions: OK TO DC IV AND DC HOME FOLLOW-UP WITH PRIMARY CARE PROVIDER IN 1-2 WEEKS FOLLOW-UP WITH ONCOLOGY IN 1-2 WEEKS RETURN TO THE ER IF symptoms worsens CALL DR. LEONARD AT [phone] IF ANY QUESTIONS REGARDING HOSPITAL STAY. PLEASE CALL THE FLOOR AT [phone] IF ANY MEDICATION OR NURSING QUESTIONS. Follow up with PCP and Oncologist in clinic within 1 - 2 weeks Diet: AHA Activity: Ad pascual Followup: Ileana More SPINE SURGEON [Primary Care Provider] - 1-2 Weeks Physician Review: Patient Assessed, Agree with Above Assessment and Plan Time spent managing pt's care (in minutes): 45
[2024-02-05 06:51] LABS: Absolute Lymphocytes (CBC) 1.3 K/uL (0.7-4.9); Absolute Monocytes 0.8 K/uL (0.1-1.3); Absolute Neutrophil 20.1 K/uL (1.8-8.0); Basophils % 0.1 % (0-1.3); Hematocrit 36.1 % (39.6-49.0); Hemoglobin 11.5 g/dL (13.6-17.9); MCH 27.9 pg (27.0-35.0); MCHC 31.9 g/dL (32.0-36.0); MCV 87.5 fL (80-100); Monocytes % 3.8 % (3.3-12.3); Neutrophils % 90.1 % (41.7-73.7); Platelets 403 thou/uL (152-406); RBC Red Blood Cell Count 4.12 M/uL (4.33-5.43); Red Cell Distribution Width 15.5 % (12.1-15.2)
[2024-02-05 07:12] LABS: Anion Gap 8.4 mEq/L (5.0-15.0); Magnesium 2.2 mg/dL (1.6-2.4); Potassium 4.4 mEq/L (3.5-5.1)
[2024-02-05 09:15] VITALS: BP 155/99; TEMP 97.2
[2024-02-05 10:23] VITALS: O2SAT 95
== END 2024-02-05 11:39 | disposition home or self-care (01) | DRG 193 ==
LOC: ER 21:00 → ERHOLD 01-27 03:44 → 2ND 01-27 14:46
PROVIDERS: ADMIT Internal Medicine; ATTEND Hospitalist
PROC: 4A033R1 Measurement of Arterial Saturation, Peripheral, Percutaneous Approach (ICD-10-PCS; principal; 2024-01-27)
PROC: 05HY33Z Insertion of Infusion Device into Upper Vein, Percutaneous Approach (ICD-10-PCS; 2024-02-04)
DX: J18.9 Pneumonia, unspecified organism (principal); E43 Unspecified severe protein-calorie malnutrition; J96.01 Acute respiratory failure with hypoxia; Z68.1 Body mass index [BMI] 19.9 or less, adult; J44.1 Chronic obstructive pulmonary disease with (acute) exacerbation; J44.0 Chronic obstructive pulmonary disease with (acute) lower respiratory infection; C34.90 Malignant neoplasm of unspecified part of unspecified bronchus or lung; R64 Cachexia; E87.6 Hypokalemia; I95.9 Hypotension, unspecified; I48.91 Unspecified atrial fibrillation; F10.129 Alcohol abuse with intoxication, unspecified; F17.210 Nicotine dependence, cigarettes, uncomplicated; Z99.81 Dependence on supplemental oxygen; Z79.01 Long term (current) use of anticoagulants; Z79.52 Long term (current) use of systemic steroids; Z90.49 Acquired absence of other specified parts of digestive tract; Z79.899 Other long term (current) drug therapy; Z86.711 Personal history of pulmonary embolism; Y90.0 Blood alcohol level of less than 20 mg/100 ml
CPT/HCPCS: 36415; 36600; 71045; 71250; 71275; 74176; 80048; 80053; 80076; 80307; 81003; 82077; 82550; 82805; 83690; 83735; 83880; 84484; 85025; 85379; 85610; 85730; 87040; 93005; 93306; 94640; 94760; 96365; 96366; 96367; 96368; 97116; 97161; 97530; 99285; J0696; J2919; J3480; J7030; J7040; J7050; J7512; J7613; J7644; P9047; Q9967

== ENCOUNTER 2025-03-18 22:40 | Emergency (ER) | payer OTHER ==
--- OUTSIDE RECORDS SUMMARY | 2025-03-18 22:45 | XMS REPORT | Clinical Summary ---
Author Name Unknown Organization [facility] Address [address] [place] [address] Care Team Providers Care Delicatessen Goods Stock Clerk Name Role Phone Carl Jones MD Unavailable Luis Angel Cervantes MD, Frank Primary Care Provider [phone] Kang Piedra MD Unavailable [phone] Mary Beth Hinson [facility] LENS POLISHER Unavailable [email or web address] Clay Hernandez MD Unavailable [phone] Kang Monreal MD Unavailable [phone] Patrick Huerta MD Unavailable [phone] Daisy Garay MD Unavailable Raj Oneal MD Unavailable Allergies No known active allergies Medications * This document contains information received from the source organization and may not represent a complete record from that organization. lancets miscIndications: Type 2 diabetes mellitus with hyperglycemia 1 each by miscellaneous route twice daily. 60 each 11 021 Active Additional Information Patient not taking.Reason: No longer taking, Reported on 11/10/2024 buprenorphine-na loxone (SUBOXONE) 2 mg-0.5 mg sublingual tabletIndication s:Opioid use disorder, mild, in sustained remission Place 2 tablets under the tongue 3 (three) times a day. 60 tablet 021 Active multivitamin tab tabletIndication s:Aspiration into lower respiratory tract Take 1 tablet by mouth daily. 30 tablet Active Additional Information Patient not taking.Reason: No longer taking, Reported on 11/10/2024 budesonide (PULMICORT) 0.25 mg/2 mL nebulizer solutionIndicati ons:severe chronic obstructive pulmonary disease Inhale 0.25 mg by nebulization daily. Active umeclidinium-richie anteroL 62.5-25 mcg/actuation dsdv Inhale by mouth. Act ceci loperamide (IMODIUM) 2 mg capsuleIndicatio ns:Aspiration into lower respiratory tract Take 1 capsule (2 mg) by mouth every 8 (eight) hours as needed for diarrhea. Buy over the counter 0 Active Additional Information Patient not taking.Reason: No longer taking, Reported on 11/10/2024 megestrol (MEGACE) 40 mg/mL suspension Give 400 mg per G-tube. Active baclofen (LIORESAL) 10 mg tabletIndication s:Muscle spasm of back Take 1 tablet (10 mg) by mouth every 12 (twelve) hours as needed for muscle spasms. 60 tablet Active Additional Information Patient not taking.Reason: No longer taking, Reported on 11/10/2024 pantoprazole (PROTONIX) 40 mg EC tabletIndication s:Aspiration into lower respiratory tract TAKE 1 TABLET(40 MG) BY MOUTH DAILY 30 tablet 6 022 Active memantine (NAMENDA) 10 mg tabletIndication s:Small cell carcinoma, NOS of upper lobe, lung <Right> TAKE 1 TABLET(10 MG) BY MOUTH TWICE DAILY 60 tablet 022 Active ipratropium-albu terol (DUO-NEB) 0.5 mg-2.5 mg/3 mL nebulizer solutionIndicati ons:Pneumocystos is pneumonia Inhale 1 vial (3 mL) by nebulization every 6 (six) hours as needed for wheezing or shortness of breath. 270 mL 1 022 Active Additional Information Patient not taking.Reason: No longer taking, Reported on 11/10/2024 aluminum-magnesi um hydroxide-simeth icone (MAALOX PLUS) 200 mg-200 mg-20 mg/5 mL suspensionIndica tions:Gastroesop hageal reflux disease Take 15 mL by mouth every 4 (four) hours as needed for indigestion or heartburn. 0 Active Additional Information Patient not taking.Reason: No longer taking, Reported on 11/10/2024 guaiFENesin (MUCINEX) 600 mg 12 hr tabletIndication s:Pneumonia due to other Gram-negative bacteria Take 1 tablet (600 mg) by mouth every 12 (twelve) hours. 14 tablet Active Additional Information Patient not taking.Reason: No longer taking, Reported on 11/10/2024 sucralfate (CARAFATE) 100 mg/mL suspensionIndica tions:Gastroesop hageal reflux disease Take 10 mL (1,000 mg) by mouth 4 (four) times a day before meals and nightly. 420 mL Active Additional Information Patient not taking.Reason: No longer taking, Reported on 11/10/2024 QUEtiapine (SEROquel) 25 mg tabletIndication s:Adjustment disorder with mixed anxiety and depressed mood Take 3 tablets (75 mg) by mouth at bedtime. 90 tablet Active Additional Information Patient not taking.Reason: takes 50mg dose, Reported on 11/10/2024 midodrine (PROAMATINE) 5 mg tablet Take 1 tablet (5 mg) by mouth twice daily. Active amitriptyline (ELAVIL) 25 mg tablet AT BEDTIME Active Advair Diskus 250-50 mcg/dose diskus inhaler as needed. Active Eliquis 5 mg tabletIndication s:Small cell carcinoma, NOS of upper lobe, lung <Right> Take 1 tablet (5 mg) by mouth every 12 (twelve) hours. 60 tablet 5 01/23/20 23 3:51 PM CDT Active Additional Information Patient taking differently:5 mg oralDaily, Reason: Other (per patient and on prescription bottle states once per day), Informant: Self, Reported on 11/10/2024 amoxicillin-clav ulanate (Augmentin) 875 mg-125 mg per tabletIndication s:Upper respiratory infection, not otherwise specified Take 1 tablet (875 mg) by mouth twice daily. 20 tablet 023 Active Additional Information Patient not taking.Reason: No longer taking, Reported on 11/02/2024 Tremaximiliano Ellipta 100-62.5-25 mcg dsdv 1 each. 024 Active QUEtiapine (SEROquel) 25 mg tabletIndication s:Anxiety disorder due to a general medical condition Take 1 tablet (25 mg) by mouth every 6 (six) hours as needed for non-violent agitation (anxiety sleep). 100 tablet 024 Active Additional Information Patient not taking.Reason: takes 50mg dose, Reported on 11/10/2024 ibuprofen (ADVIL,MOTRIN) 800 mg tablet Take 1 tablet (800 mg) by mouth every 6 (six) hours as needed. 025 Active QUEtiapine (SEROquel) 50 mg tablet Take 3 tablets (150 mg) by mouth twice daily. Active methylPREDNISolo ne (Medrol, Kenji,) 4 mg tabletIndication s:Shortness of breath Take as directed (Directions on blister pack) 21 tablet 025 Active Additional Information Patient not taking.Reason: No longer taking, Reported on 11/10/2024 albuterol (ProAir HFA) 90 mcg/puff inhalerIndicatio ns:Chronic obstructive pulmonary disease, not otherwise specified Inhale 1-2 puffs by mouth every 4 (four) hours as needed for wheezing or shortness of breath. 8 g 025 Active budesonide-formo terol (Symbicort) 80-4.5 mcg/actuation inhalerIndicatio ns:Chronic obstructive pulmonary disease, not otherwise specified Inhale 2 puffs by mouth twice daily. 10.2 g 025 Active acetaminophen-co deine (TYLENOL #3) 300 mg-30 mg tabletIndication s:Pain in left shoulder Take 1 tablet by mouth every 4 (four) hours as needed for mild pain or moderate pain. 40 tablet 025 Active acetaminophen-co deine (TYLENOL #3) 300 mg-30 mg tabletIndication s:Neoplasm related pain (acute) (chronic) Take 1 tablet by mouth every 6 (six) hours as needed for mild pain or moderate pain (Marj Berly, SURGICAL INSTRUMENT TECHNICIAN). 30 tablet 09/08/19 22 3:54 PM COMMERCIAL TITLE EXAMINER 022 2024 Discontinued Ventolin HFA 90 mcg/actuation inhalerIndicatio ns:Pneumonia due to other Gram-negative bacteria Inhale 1 puff by mouth every 6 (six) hours as needed for wheezing or shortness of breath. 8 g 022 2024 Discontinued levoFLOXacin (Levaquin) 500 mg tabletIndication s:Upper respiratory infection, not otherwise specified Take 1 tablet (500 mg) by mouth daily. 7 tablet 022 2024 Discontinued(T herapy completed) amoxicillin-clav ulanate (Augmentin) 875 mg-125 mg per tabletIndication s:Upper respiratory infection, not otherwise specified Take 1 tablet (875 mg) by mouth twice daily. 14 tablet 022 2024 Discontinued(T herapy completed) acetaminophen-co deine (Tylenol-Codeine #3) 300 mg-30 mg tabletIndication s:Small cell carcinoma, NOS of upper lobe, lung <Right> Take 1 tablet by mouth 3 (three) times a day as needed for moderate pain. 90 tablet 01/23/20 23 3:51 PM CDT 023 2024 Discontinued Zithromax Z-Kenji 250 mg tabletIndication s:Upper respiratory infection, not otherwise specified Take as directed (Directions on box or blister pack). 6 tablet 025 2024 Discontinued(A lternate therapy) azithromycin (Zithromax) 250 mg tabletIndication s:Upper respiratory infection, not otherwise specified Take 2 tablets orally on first day then take 1 tablet daily on days 2 thru 5. 6 tablet 025 2024 Discontinued(T herapy completed) azithromycin (ZITHROMAX) 250 mg tabletIndication s:Chronic obstructive pulmonary disease, not otherwise specified Take 2 tablets (500 mg) by mouth daily for 3 days. 6 tablet 025 2024 predniSONE (DELTASONE) 20 mg tabletIndication s:Chronic obstructive pulmonary disease, not otherwise specified Take 3 tablets (60 mg) by mouth daily for 5 days. 15 tablet 07/28/2 025 2024 acetaminophen-co deine (TYLENOL #3) 300 mg-30 mg tabletIndication s:Pain in left shoulder Take 1 tablet by mouth every 4 (four) hours as needed for mild pain or moderate pain. 40 tablet 025 2024 Discontinued potassium-sodium phosphates (Phos-NaK) 280 mg-160 mg-250 mg powderIndication s:Hypophosphatem ia Take 1 packet by mouth once for 1 dose. Mix contents of 1 packet(s) of the powder in 2 and one-HALF ounces (75 mL) of water or juice. Stir until completely dissolved and drink the mixture right away after mixing. Do not save for later use. 1 packet 025 2024 Discontinued potassium-sodium phosphates (Phos-NaK) 280 mg-160 mg-250 mg powderIndication s:Hypophosphatem ia Take 1 packet by mouth once for 1 dose. Mix contents of 1 packet(s) of the powder in 2 and one-HALF ounces (75 mL) of water or juice. Stir until completely dissolved and drink the mixture right away after mixing. Do not save for later use. 1 packet 025 2024 Active Problems Problem Noted Date Diagnosed Date Abnormal findings on diagnostic imaging of lung 11/03/2024 Anemia in malignant neoplastic disease 2 Swallowing painful 10/15/2021 Overview (10/18/2021): Added automatically from request for surgery [id number] Community acquired pneumonia 09/03/2021 Small cell carcinoma of lung 05/17/2021 Overview (05/17/2021): Added automatically from request for surgery [id number] Family education about pain management 1 History of radiation therapy 02/16/2021 Pressure-induced deep tissue damage of other sit e 01/05/2021 Overview (01/05/2021): Site: Coccyx Sepsis 01/04/2021 Pulmonary embolism 11/17/2020 Stage 1 pressure ulcer of other site 11/14/2020 Overview (11/14/2020): Left ear- stage 1-wood machinist related from nasal cannula Tube feeding diet [...] 08/10/2020 Decompensated COPD with acute exacerbation 07/30 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 Hernandez. Will refer [...] elsewhere classified Personal history of COVID-19 Encounters * This document contains information received from the source organization and may not represent a complete record from that organization. Date Type Department Care Team Description 03/18/2025 Telephone [facility] - Surgical Oncology [address] [facility], 9th [place] [address] Pito Randall RN 01/28/2025 6:10 PM CDT - 01/28/2025 11:59 PM CDT Hospital Encounter [facility] [address] [facility] Main [facility], 1st [place] [address] Discharge Disposition: Home 01/28/2025 6:09 PM CDT [facility] [address] [facility] Main Bldg, 1st [place] [address] Discharge Disposition: Home 01/28/2025 4:51 PM CDT - 01/28/2025 6:08 PM CDT Hospital Encounter [facility] [address] [facility] Main Bldg, 1st [place] [address] Discharge Disposition: Home 01/28/2025 3:00 PM CDT - 01/28/2025 4:50 PM CDT Hospital Encounter [facility] [address] [facility] Main Bldg, 2nd Floor Elevator C, Check-in at the [facility] [place] [address] Raj Oneal MD Wechsler, Adriana, MD Patel, Jinit J, MD Montes, Jeanette, MA Whitmore, ELLA Butterfield Shortness of breath (Primary Dx); 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; Cough, not otherwise specified; Chronic pain due to malignant neoplastic disease; Pain in left shoulder; Pain in left elbow; Hypophosphatemia Discharge Disposition: Home 01/28/2025 1:04 PM CDT - 01/28/2025 2:59 PM CDT [facility]counter [facility] [address] [place] [address] [place] [address] Henrique Plasencia MD Discharge Disposition: Home 01/28/2025 12:45 PM CDT - 01/28/2025 1:03 PM CDT Hospital En[facility] [address] [place] [address] Main dg, 1st [place] [address] Raj Oneal MD Small cell carcinoma of lung <Unspecified side> (Primary Dx); 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 Discharge Disposition: Home 01/28/2025 Travel 01/24/2025 [facility] [address] [place] [address] Main Bldg, 9th [place] [address] Ileana Tidwell MD 12/21/2024 Orders Only [facility] [address] Main Bldg, 1st [place] [address] Brisa Ward APRN 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 (Primary Dx) 12/16/2024 9:26 AM CDT - 12/16/2024 11:59 PM CDT Hospital Encounter [facility] [address] Main Bldg [place] [address] Henrique Plasencia MD Discharge Disposition: Home 12/16/2024 Documentation [facility]iation Oncology [address] Main Bldg, 9th [place] [address] Raj Oneal MD 12/16/2024 Documentation [facility] [address] Main Bldg, 1st Floo [place] [address] George Aguilar MD 12/15/2024 10:01 AM CDT - 12/15/2024 11:59 PM CDT Hospital Encounter [facility] [address] Main Bldg [place] [address] Henrique Plasencia MD Sunday, Edwin A, RN Discharge Disposition: Home 12/15/2024 9:38 AM CDT - 12/15/2024 10:00 AM CDT Hospital Encounter [facility] [address] Main Bldg [place] [address] Henrique Plasencia MD Discharge Disposition: Home 12/15/2024 Documentation [facility] [address] Main Bldg, 1st Floo [place] [address] Kang Calixto MD 12/14/2024 9:35 AM CDT - 12/14/2024 11:59 PM CDT Hospital Encounter [facility] [address] Main Bldg near Elevator [address] [place] [id number] Henrique Plasencia MD Discharge Disposition: Home 12/14/2024 [facility]iation Oncology [address] Main Bldg, 9th [place] [address] Raj Oneal MD 12/13/2024 9:40 AM CDT - 12/13/2024 11:59 PM CDT Hospital Encounter [facility] [address] [place] [address] Henrique Plasencia MD Discharge Disposition: Home 12/13/2024 8:30 AM CDT - 12/13/2024 9:39 AM CDT Hospital Encounter [facility] [address] Main Bldg, 1st [place] [address] Raj Oneal MD Discharge Disposition: Home 12/13/2024 Documentation [facility] [address] [place] [address] Omar Caceres MD 12/13/2024 Travel 12/10/2024 Documentation [facility] - Radiation Oncology [facility] Main Bldg, 9th [place] [address] Raj Oneal MD 12/06/2024 12:08 PM CDT - 12/06/2024 11:59 PM CDT Hospital Encounter [facility] [address] [facility] [place] [address] Raj Oneal MD 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; Small cell carcinoma, NOS of upper lobe, lung <Right> Discharge Disposition: Home 12/06/2024 11:16 AM CDT - 12/06/2024 12:07 PM CDT Hospital Encounter [facility] [address] Main Bldg, 1st [place] [address] Raj Oneal MD 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 Discharge Disposition: Home 12/06/2024 [facility] [address] Main Bldg, 9th [place] [address] Raj Onael MD 12/06/2024 [facility] [address] Main Bldg, 9th [place] [address] Raj Oneal MD 12/06/2024 Travel 12/02/2024 Case Management Case Management [address] [place] [address] Bernadette Ellison, RN 11/29/2024 Case Management Case Management [address] [place] [address] Bernadette Ellison, RN 11/23/2024 12:52 PM CDT - 11/23/2024 11:59 PM CDT Hospital Encounter [facility] [address] [facility] Main Bldg, 9th Floor [address] [place] [phone] Henrique Plasencia MD Qian, David, MD 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 (Primary Dx) Discharge Disposition: Home 11/23/2024 Telephone [facility] [address] [facility] Main Bldg, 1st [place] [address] Alf Boyd RN 11/17/2024 Telephone [facility] Center - Pulmonology Procedures [address] [facility] Main Bldg, 6th [place] [address] Giorgi Cope DO 11/17/2024 Orders Only [facility] - Medical Oncology [address], 9th [place] [address] Stella Clark APRN Small cell carcinoma, NOS of upper lobe, lung <Right> (Primary Dx) 11/15/2024 Orders Only [facility]cology [address] Main Bldg, 9th [place] [address] Henrique Plasencia MD 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 (Primary Dx) 11/11/2024 Orders Only [facility] [address] Main Bldg, 9th [place] [address] Stella Clark APRN Small cell carcinoma, NOS of upper lobe, lung <Right> (Primary Dx) 11/10/2024 4:30 PM CDT POEM Appointments [facility] [address] [place] [address], 6th [place] [address] Henrique Plasencia MD 11/10/2024 3:00 PM CDT Consult [facility]iop[facility] Center - Pulmonology Medicine [address] [place] [address], 6th [place] [address] Sami Arnold MD Lin, Julie, MD Small cell carcinoma, NOS of upper lobe, lung <Right>; Shortness of breath 11/10/2024 1:07 PM CDT - 11/10/2024 11:59 PM CDT Hospital Encounter [facility] [address] [place] [address] Lela Sanon APRN Small cell carcinoma of lung <Unspecified side>; Abnormal findings on diagnostic imaging of lung Discharge Disposition: Home 11/10/2024 Travel 11/09/2024 11:59 PM CDT Anesthesia Event [facility] [address] [place] [address], [facility] Floor Elevator [place] [phone] Marta Ruiz RN 11/03/2024 Prep for Surgery [facility] - Pulmonology Medicine [address] [place] [address], 6th Floor Elevator [place] [id number] Lela Sanon APRN Small cell carcinoma of lung <Unspecified side> (Primary Dx); Abnormal findings on diagnostic imaging of lung 11/03/2024 Telephone [facility] - Pulmonology Medicine [address] [place] [address], 6th [place] [address] Lela Sanon APRN 11/02/2024 4:00 PM CDT Follow-Up [facility] - Medical Oncology [address] [place] [address], 9th [place] [address] Henrique Plasencia MD Small cell carcinoma, NOS of upper lobe, lung <Right> 11/02/2024 12:45 PM CDT - 11/02/2024 11:59 PM CDT Hospital Encounter [facility] [address] [place] [address] Stella Clark APRN Small cell carcinoma, NOS of upper lobe, lung <Right> Discharge Disposition: Home 11/02/2024 12:00 PM CDT Ancillary Procedure PET Imaging [facility], 6th [place] [address] Stella Clark APRN Small cell carcinoma, NOS of upper lobe, lung <Right> 11/02/2024 Travel 11/02/2024 Documentation Rapid Response Team [address] [place] [address] Evelyn Wyman RN 10/19/2024 1:30 PM CDT Follow-Up [facility] - Medical Oncology [address] [place] [address], 9th [place] [address] Henrique Plasencia MD Small cell carcinoma, NOS of upper lobe, lung <Right> 10/19/2024 8:19 AM CDT - 10/19/2024 11:59 PM CDT Hospital Encounter CT Imaging and Diagnostic Imaging [address] [place] [address], 3rd [place] [address] Stella Clark APRN Small cell carcinoma, NOS of upper lobe, lung <Right> Discharge Disposition: Home 10/19/2024 8:18 AM CDT Hospital Encounter [facility] [address] [place] [address] Stella Clark APRN Small cell carcinoma, NOS of upper lobe, lung <Right> Discharge Disposition: Home 10/19/2024 6:51 AM CDT - 10/19/2024 8:17 AM CDT Hospital Encounter [facility] Center - Pulmonology Lab [address] [place] [address], 6th [place] [address] Fanny Canseco APRN Chronic obstructive pulmonary disease, not otherwise specified Discharge Disposition: Home 10/19/2024 6:49 AM CDT - 10/19/2024 6:50 AM CDT Hospital Encounter Cardiopulmonary Center - Pulmonology Lab [facility] [facility], 6th [place] [address] Fanny Canseco, SHANNEN Chronic obstructive pulmonary disease, not otherwise specified Discharge Disposition: Home 10/19/2024 Travel 09/23/2024 Orders Only [facility] - Pulmonology Medicine [address] [place] [address], 6th [place] [address] Fanny Canseco, CALL CENTER OPERATOR Chronic obstructive pulmonary disease, not otherwise specified (Primary Dx) 09/22/2024 4:30 PM CDT Follow-Up [facility] - Medical Oncology [address] [place] [address], 9th [place] [address] Henrique Plasencia MD Shortness of breath (Primary Dx); Small cell carcinoma, NOS of upper lobe, lung <Right> 09/22/2024 3:30 PM CDT Ancillary Procedure [facility] [address] [place] [address], 7th [place] [address] Stella Clark APRN Small cell carcinoma, NOS of upper lobe, lung <Right> 09/22/2024 2:38 PM CDT - 09/22/2024 11:59 PM CDT Hospital Encounter [facility] [address] [place] [address] Stella Clark APRN Small cell carcinoma, NOS of upper lobe, lung <Right> Discharge Disposition: Home 09/22/2024 Travel 09/13/2024 Orders Only [facility] - Medical Oncology [address] [place] [address], 9th [place] [address] Stella Clark APRN Small cell carcinoma, NOS of upper lobe, lung <Right> (Primary Dx) 09/10/2024 Telephone [facility] - Medical Oncology [address] [place] [address], 9th [place] [address] Sara Browning, ELLA 09/03/2024 Orders Only [facility] [place] - [facility] Oncology [address] [place] [address] Main [facility], 9th [place] [address] Stella Clark APRN 09/02/2024 1:00 PM COMMERCIAL TITLE EXAMINER Telemedicine [facility] [place] - Medical Oncology [address] [place] [address] Main [facility], 9th [place] [address] Stella Clark APRN 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 (Primary Dx) 09/01/2024 Orders Only [facility] [place] - Medical Oncology [address] [place] [address] Main [facility], 9th [place] [address] Henrique Plasencia MD 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 (Primary Dx) 08/30/2024 Telephone [facility] [place] [facility] On[facility] [address] [place] [address] Main [facility], 9th [place] [address] Ileana Thrasher RN 08/25/2024 12:00 PM COMMERCIAL TITLE EXAMINER Follow-Up [facility] [place] - Medical Oncology [address] [place] [address] Main [facility], 9th [place] [address] Henrique Plasencia MD Upper respiratory infection, not otherwise specified (Primary Dx); Small cell carcinoma, NOS of upper lobe, lung <Right> 08/25/2024 8:55 AM COMMERCIAL TITLE EXAMINER - 08/25/2024 11:59 PM COMMERCIAL TITLE EXAMINER Hospital Encounter CT Imaging and Diagnostic Imaging [address] [place] [address], 3rd [place] [address] Stella Clark APRN Small cell carcinoma, NOS of upper lobe, lung <Right> Discharge Disposition: Home 08/25/2024 8:00 AM COMMERCIAL TITLE EXAMINER - 08/25/2024 8:54 AM COMMERCIAL TITLE EXAMINER Hospital Encounter [facility] [address] [place] [id number] Stella Clark APRN Small cell carcinoma, NOS of upper lobe, lung <Right> Discharge Disposition: Home 08/25/2024 Orders Only Thoracic Center - Medical Oncology [facility], 9th [place] [address] Stella Clark APRN Upper respiratory infection, not otherwise specified (Primary Dx) 08/25/2024 Travel 05/20/2024 Documentation Rehabilitation Services [facility], 1st Floor [id number] [place] [address] Lilly Berry, PT 05/19/2024 12:30 PM COMMERCIAL TITLE EXAMINER Follow-Up Thoracic Center - Medical Oncology [facility], 9th [place] [address] Henrique Plasencia MD Small cell carcinoma, NOS of upper lobe, lung <Right> 05/19/2024 7:50 AM COMMERCIAL TITLE EXAMINER Ancillary Procedure CT Imaging [address] [facility], 7th [place] [address] Henrique Plasencia MD Small cell carcinoma, NOS of upper lobe, lung <Right> 05/19/2024 7:30 AM COMMERCIAL TITLE EXAMINER - 05/19/2024 11:59 PM COMMERCIAL TITLE EXAMINER Hospital Encounter [facility] [address] [place] [address] Henrique Plasencia MD Small cell carcinoma, NOS of upper lobe, lung <Right> Discharge Disposition: Home 05/19/2024 Orders Only [facility] - Medical Oncology [address] [place] [address], 9th [facility] [place] [address] Stella Clark APRN Small cell carcinoma, NOS of upper lobe, lung <Right> (Primary Dx) 05/19/2024 Travel 05/10/2024 Telephone [facility] - [facility]cology [address] [place] [address], 9th [facility] [place] [address] Daisy Shaffer RN after 03/18/2024 Immunizations Immunization Administration Dates Next Due Influenza, high dose, trivalent, preservative fr ee 03/29/2020 Pneumococcal Polysaccharide PPSV23 03/24/2022 Zoster Recombinant 03/29/2020 Surgical History Surgery Date Site/Laterality Comments ID EGD BALLOON DILATION ESOPHAGUS <30 MM DIAM 09/29/2020 Esophagus/N/A Procedure: UPPER GASTROINTESTINAL ENDOSCOPY WITH BALLOON DILATION OF ESOPHAGUS; Surgeon: Owen Leonard MD; Location: MAIN ENDOSCOPY; Service: GASTROENTEROLOGY ID EGD PERCUTANEOUS PLACEMENT GASTROSTOMY TUBE 09/29/2020 Abdomen/N/A Procedure: UPPER GASTROINTESTINAL ENDOSCOPY WITH DIRECTED PLACEMENT OF PERCUTANEOUS (PEG) GASTROSTOMY TUBE; Surgeon: Owen Leonard MD; Location: MAIN ENDOSCOPY; Service: GASTROENTEROLOGY ID BRNCHSC W/BRNCL ALVEOLAR LAVAGE 10/23/2020 N/A Procedure: FLEXIBLE BRONCHOSCOPY WITH BRONCHIAL ALVEOLAR LAVAGE; Surgeon: Krys Brewer MD; Location: MAIN PULM PROC; Service: PULMONARY ID PERQ REPLACEMENT GTUBE NOT REQ REVJ GSTRST TRC 05/21/2021 N/A Procedure: REPLACEMENT OF GASTROSTOMY TUBE, PERCUTANEOUS, INCLUDES REMOVAL, WHEN PERFORMED, WITHOUT IMAGING OR ENDOSCOPIC GUIDANCE; NOT REQUIRING REVISION OF GASTROSTOMY TRACT; Surgeon: Neha Tobin MD; Location: MAIN ENDOSCOPY; Service: GASTROENTEROLOGY ID EGD TRANSORAL BIOPSY SINGLE/MULTIPLE 10/19/2021 Esophagus/N/A Procedure: [...] Smoking Tobacco: Former Cigarettes 1.5 50 1 970 - 2019 Smokeless Tobacco: Never Tobacco Cessation:Counseling Given: Not Answered Alcohol Use Standard Drinks/Week Comments Not Currently 0 (1 standard drink = 0.6 oz pure alcohol) .5 gallon of vodka daily 15 years ago Sex and Gender Information Value Date Recorded Sex Assigned at Not on file Legal Sex Male 11:43 PM CDT Gender Identity Male 03/02/2020 6:14 PM CDT Sexual Orientation Straight 03/02/2020 6: 14 PM CDT 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 Not on file Not on file Not on file Obstetrics History Last Filed Vital Signs Vital Sign Reading Time Taken Comments Blood Pressure 137/83 01/28/2025 5:23 PM CDT Pulse 57 01/28/2025 5:23 PM CDT Temperature 36.7 °C (98.1 °F) 01/28/2025 5:23 PM CD T Respiratory Rate 19 01/28/2025 5:23 PM CDT Oxygen Saturation 100% 01/28/2025 5:23 PM CDT Inhaled Oxygen Concentration - - Weight 47.5 kg (104 lb 11.5 oz) 01/28/2025 3:14 PM CDT Height 163 cm (5' 4.17") 01/28/2025 3:14 PM CDT Body Mass Index 17.88 01/28/2025 3:14 PM CDT Plan of Treatment Upcoming Encounters Date Type Department Care Team (Late st Contact Info) Description 03/25/2025 7:[address] Imaging and Diagnostic Imaging [facility], 3rd [place] [address] Brisa Ward APRN [address] [place] [address] [email or web address] 03/25/2025 11:15 AM CDT Appointment Radiation Treatment Center [facility], [address] [place] [address] Raj Oneal MD [address] [place] [address] [email or web address] Health Maintenance Due Date Last Done Comments COVID-19 Vaccine (#1) 11/23/1960 Pneumococcal Vaccine: 50+ Years (2 of 2 - PCV) 023 03/24/2022 Influenza Vaccine (#1) 2025 03/29/2020 Procedures Procedure Name Priority Date/Time Associated Diagnosis Comments XR ELBOW 2 VW LEFT STAT 01/28/2025 7: 07 PM CDT Cough, not otherwise specified XR SHOULDER 2+ VW LEFT STAT 7:07 PM CDT Cough, not otherwise specified XR CHEST 1 VW PORTABLE STAT 5:26 PM CDT Cough, not otherwise specified .CBC STAT 01/28/2025 4:33 PM CDT Shortness of breath COMPREHENSIVE METABOLIC PANEL STAT 01/28/2025 4:33 PM CDT Shortness of breath HC PROCALCITONIN (PCT) STAT 4:33 PM CDT Shortness of breath PHOSPHORUS LEVEL STAT 01/28/2025 4:33 PM CDT Shortness of breath MAGNESIUM LEVEL STAT 01/28/2025 4:33 PM CDT Shortness of breath COMPLETE BLOOD COUNT W/ DIFFERENTIAL STAT 01/28/2025 4:33 PM CDT Shortness of breath RESPIRATORY MULTIPLEX PCR PANEL, NASOPHARYNGEAL SWAB STAT 01/28/2025 4:04 PM CDT Shortness of breath CT THORACIC SIMULATION WITHOUT CONTRAST Routine 12/06/2024 1:32 PM CDT Small cell carcinoma, NOS of upper lobe, lung <Right> PROTHROMBIN TIME Routine 11/10/2024 1:22 PM CDT Small cell carcinoma of lung <Unspecified side> Abnormal findings on diagnostic imaging of lung COMPREHENSIVE METABOLIC PANEL Routine 11/02/2024 1:13 PM CDT Small cell carcinoma, NOS of upper lobe, lung <Right> PETCT F18 FDG (FLUORODEOXYGLUCOSE) WITHOUT CONTRAST Routine 11/02/2024 11:54 AM CDT Small cell carcinoma, NOS of upper lobe, lung <Right> POC GLUCOSE SCREEN Routine 11/02/2024 10 :[address] CHEST W CONTRAST Routine 10/19/2024 1 0:26 AM CDT Small cell carcinoma, NOS of upper lobe, lung <Right> POC CREATININE Routine 10/19/2024 9:27 AM CDT .CBC Routine 10/19/2024 9:26 AM CDT Small cell carcinoma, NOS of upper lobe, lung <Right> URIC ACID Routine 10/19/2024 9:26 AM CDT Small cell carcinoma, NOS of upper lobe, lung <Right> MAGNESIUM LEVEL Routine 10/19/2024 9:26 AM CDT Small cell carcinoma, NOS of upper lobe, lung <Right> COMPREHENSIVE METABOLIC PANEL Routine 10/19/2024 9:26 AM CDT Small cell carcinoma, NOS of upper lobe, lung <Right> COMPLETE BLOOD COUNT W/ DIFFERENTIAL Routine 10/19/2024 9:26 AM CDT Small cell carcinoma, NOS of upper lobe, lung <Right> SPIROMETRY W/O DILATORS AND BODY PLETHSMOGRAPHIC LUNG VOLUMES Routine 10/19/2024 8:12 AM CDT Chronic obstructive pulmonary disease, not otherwise specified 6 MINUTE WALK TEST Routine 10/19/2024 7: 38 AM CDT Chronic obstructive pulmonary disease, not otherwise specified XR CHEST 2 VW Routine 09/22/2024 3:35 PM CDT Small cell carcinoma, NOS of upper lobe, lung <Right> DIFFERENTIAL Routine 09/22/2024 2:50 PM CDT Small cell carcinoma, NOS of upper lobe, lung <Right> .CBC Routine 09/22/2024 2:50 PM CDT Small cell carcinoma, NOS of upper lobe, lung <Right> COMPREHENSIVE METABOLIC PANEL Routine 09/22/2024 2:50 PM CDT Small cell carcinoma, NOS of upper lobe, lung <Right> COMPLETE BLOOD COUNT W/ DIFFERENTIAL Routine 09/22/2024 2:50 PM CDT Small cell carcinoma, NOS of upper lobe, lung <Right> CT CHEST W CONTRAST Routine 08/25/2024 1 0:50 AM COMMERCIAL TITLE EXAMINER Small cell carcinoma, NOS of upper lobe, lung <Right> .CBC Routine 08/25/2024 8:55 AM COMMERCIAL TITLE EXAMINER Small cell carcinoma, NOS of upper lobe, lung <Right> URIC ACID Routine 08/25/2024 8:55 AM COMMERCIAL TITLE EXAMINER Small cell carcinoma, NOS of upper lobe, lung <Right> MAGNESIUM LEVEL Routine 08/25/2024 8:55 AM COMMERCIAL TITLE EXAMINER Small cell carcinoma, NOS of upper lobe, lung <Right> COMPREHENSIVE METABOLIC PANEL Routine 08/25/2024 8:55 AM COMMERCIAL TITLE EXAMINER Small cell carcinoma, NOS of upper lobe, lung <Right> COMPLETE BLOOD COUNT W/ DIFFERENTIAL Routine 08/25/2024 8:55 AM COMMERCIAL TITLE EXAMINER Small cell carcinoma, NOS of upper lobe, lung <Right> CT CHEST W CONTRAST Routine 05/19/2024 9 :10 AM COMMERCIAL TITLE EXAMINER Small cell carcinoma, NOS of upper lobe, lung <Right> POC CREATININE Routine 05/19/2024 8:29 AM COMMERCIAL TITLE EXAMINER .CBC Routine 05/19/2024 8:27 AM COMMERCIAL TITLE EXAMINER Small cell carcinoma, NOS of upper lobe, lung <Right> COMPREHENSIVE METABOLIC PANEL Routine 05/19/2024 8:27 AM COMMERCIAL TITLE EXAMINER Small cell carcinoma, NOS of upper lobe, lung <Right> COMPLETE BLOOD COUNT W/ DIFFERENTIAL Routine 05/19/2024 8:27 AM COMMERCIAL TITLE EXAMINER Small cell carcinoma, NOS of upper lobe, lung <Right> after 03/18/2024 Results * X-ray Shoulder 2+ Views Left (01/28/2025 7:07 PM CDT) Anatomical Region Laterality Modality Shoulder, Extremity Digital Radi ography 01/28/2025 7:25 PM CDT Impressions 01/28/2025 7:35 PM CDT 1. No fracture or acute bony abnormality are visualized in the left shoulder or left elbow. 2. No radiographic evidence of osseous metastatic disease. ACTIONABLE ITEMS/RECOMMENDATIONS*: None. *An Actionable Finding is a finding that may be unrelated to the original reason for imaging but potentially actionable, meaning further investigation may be necessary. The Actionable Findings Vigilance Unit (AFVU) assists medical providers with responding to additional radiologic findings that are unexpected and potentially actionable. Narrative 01/28/2025 7:35 PM CDT FULL RESULT: Examination: XR SHOULDER 2+ VW LEFT, XR ELBOW 2 VW LEFT, 01/28/2025 7:07 PM. Clinical History: 69-year-old male with history of small cell lung cancer Indication: Left shoulder and elbow pain Comparison: CT PET study of 11/02/2024 Technique: AP internal rotation, AP external rotation, transscapular Y views of the left shoulder, AP and lateral views of the left elbow.,. Findings: No radiographic evidence of osseous metastatic disease in the left shoulder or left elbow. No fracture or dislocation are identified. Moderate acromioclavicular joint osteoarthritis. Increased subchondral sclerosis in the humeral head in the glenohumeral joint suggestive of at least mild osteoarthritis. Mild osteoarthritis in the ulnohumeral and radiocapitellar articulations. No elbow joint effusion. No loose bodies or chondrocalcinosis. There old healed fractures in the left posterior 5th, 6th, and 7th ribs. Procedure Note Raj Denis MD - 01/28/2025 FULL RESULT: Examination: XR SHOULDER 2+ VW LEFT, XR ELBOW 2 VW LEFT, 01/28/2025 7:07PM. Clinical History: 69-year-old male with history of small cell lungcancer Indication: Left shoulder and elbow pain Comparison: CT PET study of 11/02/2024 Technique: AP internal rotation, AP external rotation, transscapular Yviews of the left shoulder, AP and lateral views of the left elbow.,. Findings: No radiographic evidence of osseous metastatic disease in the leftshoulder or left elbow. No fracture or dislocation are identified. Moderate acromioclavicular joint osteoarthritis. Increased subchondral sclerosis in the humeral head in the glenohumeraljoint suggestive of at least mild osteoarthritis. Mild osteoarthritis in the ulnohumeral and radiocapitellar articulations.No elbow joint effusion. No loose bodies or chondrocalcinosis. There old healed fractures in the left posterior 5th, 6th, and 7th ribs. IMPRESSION: 1. No fracture or acute bony abnormality are visualized in the leftshoulder or left elbow. 2. No radiographic evidence of osseous metastatic disease. ACTIONABLE ITEMS/RECOMMENDATIONS*: None. *An Actionable Finding is a finding that may be unrelated to the originalreason for imaging but potentially actionable, meaning furtherinvestigation may be necessary. The Actionable Findings Vigilance Unit(AFVU) assists medical providers with responding to additional radiologicfindings that are unexpected and potentially actionable. us Modesta Nicolas MD IMG DIAGNOSTIC IMAGING ORDERABL ES Final Result * X-ray Elbow 2 Views Left (01/28/2025 7:07 PM CDT) Anatomical Region Laterality Modality Elbow, Extremity Digital Radiogr aphy 01/28/2025 7:25 PM CDT Impressions 01/28/2025 7:35 PM CDT 1. No fracture or acute bony abnormality are visualized in the left shoulder or left elbow. 2. No radiographic evidence of osseous metastatic disease. ACTIONABLE ITEMS/RECOMMENDATIONS*: None. *An Actionable Finding is a finding that may be unrelated to the original reason for imaging but potentially actionable, meaning further investigation may be necessary. The Actionable Findings Vigilance Unit (AFVU) assists medical providers with responding to additional radiologic findings that are unexpected and potentially actionable. Narrative 01/28/2025 7:35 PM CDT FULL RESULT: Examination: XR SHOULDER 2+ VW LEFT, XR ELBOW 2 VW LEFT, 01/28/2025 7:07 PM. Clinical History: 69-year-old male with history of small cell lung cancer Indication: Left shoulder and elbow pain Comparison: CT PET study of 11/02/2024 Technique: AP internal rotation, AP external rotation, transscapular Y views of the left shoulder, AP and lateral views of the left elbow.,. Findings: No radiographic evidence of osseous metastatic disease in the left shoulder or left elbow. No fracture or dislocation are identified. Moderate acromioclavicular joint osteoarthritis. Increased subchondral sclerosis in the humeral head in the glenohumeral joint suggestive of at least mild osteoarthritis. Mild osteoarthritis in the ulnohumeral and radiocapitellar articulations. No elbow joint effusion. No loose bodies or chondrocalcinosis. There old healed fractures in the left posterior 5th, 6th, and 7th ribs. Procedure Note Raj Denis MD - 01/28/2025 FULL RESULT: Examination: XR SHOULDER 2+ VW LEFT, XR ELBOW 2 VW LEFT, 01/28/2025 7:07PM. Clinical History: 69-year-old male with history of small cell lungcancer Indication: Left shoulder and elbow pain Comparison: CT PET study of 11/02/2024 Technique: AP internal rotation, AP external rotation, transscapular Yviews of the left shoulder, AP and lateral views of the left elbow.,. Findings: No radiographic evidence of osseous metastatic disease in the leftshoulder or left elbow. No fracture or dislocation are identified. Moderate acromioclavicular joint osteoarthritis. Increased subchondral sclerosis in the humeral head in the glenohumeraljoint suggestive of at least mild osteoarthritis. Mild osteoarthritis in the ulnohumeral and radiocapitellar articulations.No elbow joint effusion. No loose bodies or chondrocalcinosis. There old healed fractures in the left posterior 5th, 6th, and 7th ribs. IMPRESSION: 1. No fracture or acute bony abnormality are visualized in the leftshoulder or left elbow. 2. No radiographic evidence of osseous metastatic disease. ACTIONABLE ITEMS/RECOMMENDATIONS*: None. *An Actionable Finding is a finding that may be unrelated to the originalreason for imaging but potentially actionable, meaning furtherinvestigation may be necessary. The Actionable Findings Vigilance Unit(AFVU) assists medical providers with responding to additional radiologicfindings that are unexpected and potentially actionable. us Modesta Nicolas MD IMG DIAGNOSTIC IMAGING ORDERABL ES Final Result * X-ray Chest 1 View Portable (01/28/2025 5:26 PM CDT) Anatomical Region Laterality Modality Chest Digital Radiogra phy 01/28/2025 6:42 PM CDT Impressions 01/28/2025 6:44 PM CDT Stable radiation pneumonitis in the right upper lobe. No new disease in the lungs. ACTIONABLE ITEMS/RECOMMENDATIONS*: None. *An Actionable Finding is a finding that may be unrelated to the original reason for imaging but potentially actionable, meaning further investigation may be necessary. The Actionable Findings Vigilance Unit (AFVU) assists medical providers with responding to additional radiologic findings that are unexpected and potentially actionable. Narrative 01/28/2025 6:44 PM CDT FULL RESULT: Examination: XR CHEST 1 VW PORTABLE on 01/28/2025 5:26 PM. Clinical History: Small cell lung cancer Indication: Cough Comparison: 11/02/2024 Technique: Frontal radiograph of the chest Findings: Support Apparatus: None. Lungs/Pleura/Mediastinum: The opacities in the right upper lobe are unchanged consistent with radiation pneumonitis. Scarring in the lingula is unchanged. The heart size is normal. No new disease in the lungs. Procedure Note Stephany Gonzalez MD - 01/28/2025 FULL RESULT: Examination: XR CHEST 1 VW PORTABLE on 01/28/2025 5:26 PM. Clinical History: Small cell lung cancer Indication: Cough Comparison: 11/02/2024 Technique: Frontal radiograph of the chest Findings: Support Apparatus: None. Lungs/Pleura/Mediastinum: The opacities in the right upper lobe areunchanged consistent with radiation pneumonitis. Scarring in the lingulais unchanged. The heart size is normal. No new disease in the lungs. IMPRESSION: Stable radiation pneumonitis in the right upper lobe. No new disease inthe lungs. ACTIONABLE ITEMS/RECOMMENDATIONS*: None. *An Actionable Finding is a finding that may be unrelated to the originalreason for imaging but potentially actionable, meaning furtherinvestigation may be necessary. The Actionable Findings Vigilance Unit(AFVU) assists medical providers with responding to additional radiologicfindings that are unexpected and potentially actionable. us Modesta Nicolas MD IMG DIAGNOSTIC IMAGING ORDERABL ES Final Result * (ABNORMAL) .CBC (01/28/2025 4:33 PM CDT) Only the most recent of5 resultswithin the time period is included. White Blood Cell 9.2 4.1 - 10.5 K/uL 01/28/2025 5:03 PM CDT [facility] Red Blood Cell 3.18(L) 4.30 - 6.04 M/uL 01/28/2025 5:03 PM CDT [facility] Hemoglobin 9.1(L) 13.3 - 17.4 g/dL 01/28/2025 5:03 PM CDT [facility] Hematocrit 27.4(L) 39.5 - 51.8 % 01/28/2025 5:03 PM CDT [facility] Mean Cell Volume 86 82 - 99 fL 01/28/2025 5:03 PM CDT [facility] Mean Cell Hemoglobin 28.6 26.6 - 33.2 pg 01/28/2025 5:03 PM CDT [facility] Mean Cell Hemoglobin Concentration 33.2 31.1 - 35.2 g/dL 01/28/2025 5:03 PM CDT [facility] RDW-SD 43.9 37.5 - 49.7 fL 01/28/2025 5:03 PM CDT [facility] Red Cell Diameter Width 13.9 11.6 - 15.5 % 01/28/2025 5:03 PM CDT [facility] Platelet 351 160 - 397 K/uL 01/28/2025 5:03 PM CDT [facility] Mean Platelet Volume 9.4 9.1 - 12.6 fL 01/28/2025 5:03 PM CDT [facility] INRBC 0.0 0.0 - 0.1 /100 WBC 01/28/2025 5:03 PM CDT [facility] Comment: The INRBC value reflects the enumeration of nucleated red blood cells contained in a 200uL sample of whole blood analyzed by the instrument. This value may differ from the NRBC value reported in a manual diff, which is based on a 100 cell differential. Neutrophil % 63.4 43.2 - 72.7 % 01/28/2025 5:03 PM CDT [facility] Lymphocyte % 27.9 16.8 - 46.2 % 01/28/2025 5:03 PM CDT [facility] Monocyte % 8.3 5.1 - 12.5 % 01/28/2025 5:03 PM CDT [facility] Eosinophil % 0.0(L) 0.4 - 6.3 % 01/28/2025 5:03 PM CDT [facility] Basophil % 0.1(L) 0.2 - 1.4 % 01/28/2025 5:03 PM CDT [facility] IGRE % 0.3 0.1 - 1.5 % 01/28/2025 5:03 PM CDT [facility] Comment:The IGRE% includes M etamyelocytes, Myelocytes and Promyelocytes. Neutrophil Abs 5.83 1.95 - 7.25 K/uL 01/28/2025 5:03 PM CDT [facility] Lymphocyte Abs 2.56 1.01 - 3.24 K/uL 01/28/2025 5:03 PM CDT [facility] Monocyte Abs 0.76 0.24 - 0.85 K/uL 01/28/2025 5:03 PM CDT [facility] Eosinophil Abs 0.00(L) 0.02 - 0.50 K/uL 01/28/2025 5:03 PM CDT [facility] Basophil Abs 0.01(L) 0.02 - 0.09 K/uL 01/28/2025 5:03 PM CDT [facility] IG Abs 0.03 0.01 - 0.12 K/uL 01/28/2025 5:03 PM CDT [facility] Blood Peripheral blood specimen / Unknown Venipuncture / Unknown 01/28/2025 4:33 PM CDT 01/28/2025 4:43 PM CDT us Modesta Nicolas MD LAB BLOOD ORDERABLES Final Resu lt Performing Organization Address [facility] Co de Phone Number [facility] [address] [place] [phone] * Procalcitonin (01/28/2025 4:33 PM CDT) Procalcitonin 0.05 <=0.08 ng/mL 01/28/2025 5:30 PM CDT [facility] Blood Peripheral blood specimen / Unknown Venipuncture / Unknown 01/28/2025 4:33 PM CDT 01/28/2025 4:43 PM CDT Narrative [facility] - 01/28/2025 5:30 PM CDT Procalcitonin > 2.00 ng/mL: Procalcitonin levels above 2.00 ng/mL are highly suggestive of a high risk for systematic bacterial infection/ severe sepsis and/or septic shock. Procalcitonin < 0.50 ng/mL: Procalcitonin levels below 0.50 ng/mL are at low risk for progression to severe sepsis and/ or septic shock. Procalcitonin (ProCT) between 0.15 and 2.0 ng/mL do not exclude infection, because localized infections (without systemic signs) may be associated with such low levels. Results greater than 400 ng/mL may not be reliable due to the matrix effect with extended dilution as it exceeds the dental ceramist's recommended limit. Caution should be exercised when interpreting such values and done in conjunction with clinical context. us Modesta Nicolas MD LAB BLOOD ORDERABLES Final Resu lt Performing Organization Address City/[facility]/ZIP Co de Phone Number [address] [address] * (ABNORMAL) Comprehensive Metabolic Panel (01/28/2025 4:33 PM CDT) Only the most recent of6 resultswithin the time period is included. Bilirubin Total <0.3 0.0 - 1.2 mg/dL 01/28/2025 5:30 PM CDT [facility] Comment:Indocyanine Green (I CG) may cause falsely elevated bilirubin results. Total and direct bilirubin must not be measured from samples containing indocyanine green. False elevation of total bilirubin can be seen in patients with IgG concentrations above 28 g/L. eGFR 105 >=60 mL/min/1. 73 sq. m 01/28/2025 5:30 PM CDT [facility] Comment: The eGFRcr is calculated with [...] G2 fulfill criteria for CKD. Tot Protein 6.4 6.4 - 8.3 gm/dL 01/28/2025 5:30 PM CDT [facility] Calcium Level Total 9.0 8.2 - 10.2 mg/dL 01/28/2025 5:30 PM CDT [facility] Alkaline Phosphatase 94 40 - 129 U/L 01/28/2025 5:30 PM CDT [facility] Albumin Level 3.5 3.5 - 5.2 gm/dL 01/28/2025 5:30 PM CDT [facility] AST 13 <=40 U/L 01/28/2025 5:30 PM CDT [facility] ALT 11 <=41 U/L 01/28/2025 5:30 PM CDT [facility] Sodium Level 140 136 - 145 mmol/L 01/28/2025 5:30 PM CDT [facility] Potassium Level 3.5 3.4 - 4.5 mmol/L 01/28/2025 5:30 PM CDT [facility] Chloride 102 98 - 107 mmol/L 01/28/2025 5:30 PM CDT [facility] CO2 25 22 - 29 mmol/L 01/28/2025 5:30 PM CDT [facility] Anion Gap 13 4 - 14 mmol/L 01/28/2025 5:30 PM CDT [facility] Creatinine 0.58(L) 0.67 - 1.17 mg/dL 01/28/2025 5:30 PM CDT [facility] BUN 11 6 - 23 mg/dL 01/28/2025 5:30 PM CDT [facility] Glucose Level 84 70 - 99 mg/dL 01/28/2025 5:30 PM CDT [facility] Comment: Effective 01/24/16, the glucose reference intervals have been updated based on [place] [employer] Diabetes Association guidelines (Standards of Medical Care in Diabetes 2016. Diabetes Care 2016; 39: S13-S22). Fasting blood glucose: Normal: 70-99 mg/dL Impaired fasting glucose (increased risk for diabetes or pre-diabetes): 100-125 mg/dL Diabetes mellitus: >/=126 mg/dL Random blood glucose: Normal: 70-199 mg/dL Note: Random glucose >100 mg/dL is associated with increased risk for diabetes. Blood Peripheral blood specimen / Unknown Venipuncture / Unknown 01/28/2025 4:33 PM CDT 01/28/2025 4:43 PM CDT us Modesta Nicolas MD LAB BLOOD ORDERABLES Final Resu lt [facility] [address] [place] [address] * (ABNORMAL) Phosphorus Level (01/28/2025 4:33 PM CDT) Phosphorus Level 2.4(L) 2.5 - 4.5 mg/dL 01/28/2025 5:30 PM CDT [facility] Blood Peripheral blood specimen / Unknown Venipuncture / Unknown 01/28/2025 4:33 PM CDT 01/28/2025 4:43 PM CDT us Modesta Nicolas MD LAB BLOOD ORDERABLES Final Resu lt [address] [address] * Magnesium Level (01/28/2025 4:33 PM CDT) Only the most recent of3 resultswithin the time period is included. [facility] Magnesium Level 2.1 1.6 - 2.6 mg/dL 01/28/2025 5:30 PM CDT [facility] Blood Peripheral blood specimen / Unknown Venipuncture / Unknown 01/28/2025 4:33 PM CDT 01/28/2025 4:43 PM CDT us Modesta Nicolas MD LAB BLOOD ORDERABLES Final Resu lt [address] [address] * Respiratory Multiplex PCR Panel, Nasopharyngeal Swab (01/28/2025 4:04 PM CDT) [facility] Adenovirus Not Detected Not Detected 01/28/2025 5:09 PM CDT [facility] Coronavirus 229E Not Detected Not Detected 01/28/2025 5:09 PM CDT [facility] Coronavirus HKU1 Not Detected Not Detected 01/28/2025 5:09 PM CDT [facility] Coronavirus NL63 Not Detected Not Detected 01/28/2025 5:09 PM CDT [facility] Coronavirus OC43 Not Detected Not Detected 01/28/2025 5:09 PM CDT [facility] COVID-19 (SARS-CoV-2) Not Detected Not Detected 01/28/2025 5:09 PM CDT [facility] Human Metapneumovirus Not Detected Not Detected 01/28/2025 5:09 PM CDT [facility] Human Rhinovirus/Enterov irus Not Detected Not Detected 01/28/2025 5:09 PM CDT [facility] Influenza A Not Detected Not Detected 01/28/2025 5:09 PM CDT [facility] Influenza A H1 Not Detected Not Detected 01/28/2025 5:09 PM CDT [facility] Influenza A H1 2009 Not Detected Not Detected 01/28/2025 5:09 PM CDT [facility] Influenza A H3 Not Detected Not Detected 01/28/2025 5:09 PM CDT [facility] Influenza B Not Detected Not Detected 01/28/2025 5:09 PM CDT [facility] Parainfluenza Virus 1 Not Detected Not Detected 01/28/2025 5:09 PM CDT [facility] Parainfluenza Virus 2 Not Detected Not Detected 01/28/2025 5:09 PM CDT [facility] Parainfluenza Virus 3 Not Detected Not Detected 01/28/2025 5:09 PM CDT [facility] Parainfluenza Virus 4 Not Detected Not Detected 01/28/2025 5:09 PM CDT [facility] Respiratory Syncytial Virus Not Detected Not Detected 01/28/2025 5:09 PM CDT [facility] Bordetella parapertussis Not Detected Not Detected 01/28/2025 5:09 PM CDT [facility] Bordetella pertussis Not Detected Not Detected 01/28/2025 5:09 PM CDT [facility] Chlamydophila pneumoniae Not Detected Not Detected 01/28/2025 5:09 PM CDT [facility] Mycoplasma pneumoniae Not Detected Not Detected 01/28/2025 5:09 PM CDT [facility] Swab Nasopharyngeal structure / Unknown Non-blood Collection / Unknown 01/28/2025 4:04 PM CDT 01/28/2025 4:12 PM CDT [facility] - 01/28/2025 5:09 PM CDT The assay is a qualitative multiplex PCR assay to aid in the diagnosis of respiratory pathogens through simultaneous qualitative detection and identification of multiple pathogens directly from nasopharyngeal swabs (LAW WRITER) from individuals with respiratory symptoms. Testing is performed using the [employer] TV FilmArray Respiratory Panel 2.1 (RP2.1) on the Shout TV® Fleksych® System. The following organisms are identified using the BioFire RP 2.1 Panel: Adenovirus, Human Coronavirus (229E, HKU1, NL63, and OC43), Severe Acute Respiratory Syndrome Coronavirus 2 (SARS-CoV-2), Human Metapneumovirus, Human Rhinovirus/Enterovirus, Influenza A, including subtypes (H1, H3 and H1-2009), Influenza B, Parainfluenza Virus (1, 2, 3, and 4), Respiratory Syncytial Virus, Bordetella parapertussis, Bordetella pertussis, Chlamydia pneumoniae, and Mycoplasma pneumoniae A result of Not Detected" does not exclude the possibility of the presence of one or more of the pathogens at or below the detection limits of this assay nor does exclude the possibility of pathogens not detected by this panel. Non-infectious causes of respiratory symptoms should also be considered in such cases. Internal controls are used to monitor all stages of the testing process including amplification inhibition. If inhibition is detected, testing is repeated and if inhibition is confirmed the specimen is resulted as "Invalid". When an "Invalid" result occurs, it is recommended to wait 3 days before submitting a new specimen for testing if clinically indicated. This is an FDA-approved assay and its performance characteristics were verified by the microbiology laboratory at the [facility] (CLIA Accreditation # [id number] and CAP Accreditation # [id number]). Results must be interpreted within the context of all relevant clinical and laboratory findings. Assay should not be used for monitoring response to therapy. us Modesta Nicolas MD MICROBIOLOGY - GENERAL ORDERABL ES Final Result Performing Organization Address City/State/[facility] Co de Phone Number [facility] [address] [place] [address] * CT Thoracic Simulation without Contrast (12/06/2024 1:32 PM CDT) Narrative Systemgenerated, Documentation - 12/06/2024 1:32 PM CDT This procedure requires no interpretation from the radiologist. us Raj Oneal MD IMG RO CT SIM ORDERABLES Final R esult * Prothrombin Time with INR (11/10/2024 1:22 PM CDT) Prothrombin Time 13.8 12.2 - 14.4 second(s) 11/10/2024 1:58 PM CDT [facility] International Normalization Ratio 1.09 0.91 - 1.10 11/10/2024 1:58 PM CDT [facility] Blood Peripheral blood specimen / Unknown Venipuncture / Unknown 11/10/2024 1:22 PM CDT 11/10/2024 1:23 PM CDT us Lela Ramírez Fab CALL CENTER OPERATOR LAB BLOOD ORDERABLES Final R esult [facility] Unless otherwise noted, all lab tests performed by: Division of Pathology and Laboratory Medicine [address] [place] [id number] * PETCT F18 FDG (Fluorodeoxyglucose) without contrast (11/02/2024 11:54 AM CDT) Anatomical Region Laterality Modality Whole Body Positron Emissio n Tomography (PET) 11/02/2024 12:1 0 PM CDT Impressions 11/02/2024 3:06 PM CDT There is focal nodular FDG uptake within the right upper lobe post radiation opacities, worrisome for active disease. FDG avid right upper lobe nodule suspicious for metastasis. No evidence of FDG avid extra thoracic metastases. ACTIONABLE ITEMS/RECOMMENDATIONS*: None. *An Actionable Finding is a finding that may be unrelated to the original reason for imaging but potentially actionable, meaning further investigation may be necessary. The Actionable Findings Vigilance Unit (AFVU) assists medical providers with responding to additional radiologic findings that are unexpected and potentially actionable. Narrative 11/02/2024 3:06 PM CDT FULL RESULT: Examination: 18F-FDG-PET/CT without contrast, 11/02/2024 11:54 AM Clinical History: Small cell lung carcinoma Indication: Restaging study for subsequent treatment strategy. Comparison: 10/19/2024, 08/25/2024, 06/07/2022 Technique: F-18 fluorodeoxyglucose 10.0 mCi was administered intravenously via right hand. To allow for distribution and uptake of radiotracer, the patient was asked to rest quietly for approximately 60-90 minutes. PET/CT imaging was performed from the vertex to thighs. CT scanning was done for attenuation correction, image registration, and diagnosis with scan parameters optimized to minimize radiation exposure to the patient. SUV measurements are reported as maximum SUV based on body weight unless otherwise specified. Findings: Head and Neck: No adenopathy. Chest: There are emphysematous changes of the lungs. Dense consolidative opacities in the right upper lobe with bronchiectasis secondary to post radiation changes. There is focal FDG uptake within these opacities on image 96 (SUV 8.9). In the right upper lobe on image 118, there is a 0.9 cm FDG avid nodule (SUV 10.3). Atelectatic changes in the lingula. Subpleural opacities in the left lower lobe consistent with scarring. There are low-grade lymph nodes measuring up to 1.1 cm. For example, right paratracheal lymph node on image 119 measures 0.9 cm and is stable in size (SUV 2.2). Nonenlarged right hilar lymph node on image 119 (SUV 3.0) Subcarinal lymph node measures 1.1 cm and is stable in size (SUV 2.6). Moderate coronary artery calcification is present. No pleural or pericardial effusions. Abdomen and Pelvis: No FDG avid lesions in the liver, spleen or adrenal glands. No hydronephrosis Biliary stent. No FDG avid adenopathy. Cholecystectomy. Musculoskeletal: There are degenerative changes of the spine. No FDG avid osseous lesions suspicious for malignancy. Procedure Note Bonny Chadwick MD - 11/02/2024 FULL RESULT: Examination: 18F-FDG-PET/CT without contrast, 11/02/2024 11:54 AM Clinical History: Small cell lung carcinoma Indication: Restaging study for subsequent treatment strategy. Comparison: 10/19/2024, 08/25/2024, 06/07/2022 Technique: F-18 fluorodeoxyglucose 10.0 mCi was administered intravenously via righthand. To allow for distribution and uptake of radiotracer, the patient wasasked to rest quietly for approximately 60-90 minutes. PET/CT imaging wasperformed from the vertex to thighs. CT scanning was done for attenuationcorrection, image registration, and diagnosis with scan parametersoptimized to minimize radiation exposure to the patient. SUV measurementsare reported as maximum SUV based on body weight unless otherwisespecified. Findings: Head and Neck: No adenopathy. Chest: There are emphysematous changes of the lungs. Dense consolidativeopacities in the right upper lobe with bronchiectasis secondary to postradiation changes. There is focal FDG uptake within these opacities onimage 96 (SUV 8.9). In the right upper lobe on image 118, there is a 0.9cm FDG avid nodule (SUV 10.3). Atelectatic changes in the lingula. Subpleural opacities in the left lowerlobe consistent with scarring. There are low-grade lymph nodes measuring up to 1.1 cm. For example, rightparatracheal lymph node on image 119 measures 0.9 cm and is stable in size(SUV 2.2). Nonenlarged right hilar lymph node on image 119 (SUV 3.0)Subcarinal lymph node measures 1.1 cm and is stable in size (SUV 2.6).Moderate coronary artery calcification is present. No pleural orpericardial effusions. Abdomen and Pelvis: No FDG avid lesions in the liver, spleen or adrenal glands. Nohydronephrosis Biliary stent. No FDG avid adenopathy. Cholecystectomy. Musculoskeletal: There are degenerative changes of the spine. No FDG avid osseous lesionssuspicious for malignancy. IMPRESSION: There is focal nodular FDG uptake within the right upper lobe postradiation opacities, worrisome for active disease. FDG avid right upperlobe nodule suspicious for metastasis. No evidence of FDG avid extra thoracic metastases. ACTIONABLE ITEMS/RECOMMENDATIONS*: None. *An Actionable Finding is a finding that may be unrelated to the originalreason for imaging but potentially actionable, meaning furtherinvestigation may be necessary. The Actionable Findings Vigilance Unit(AFVU) assists medical providers with responding to additional radiologicfindings that are unexpected and potentially actionable. Stella Clark APRN IM PETCT ORDERABLES Final Result * POC Glucose Screen - Fingerstick (11/02/2024 10:18 AM CDT) Glucose Screen 75 70 - 99 mg/dL 11/02/2024 10:20 AM CDT [facility] POC Sample Type Venous 11/02/2024 10:20 AM CDT [facility] Blood 11/02/2024 10:1 8 AM CDT 11/02/2024 10:20 AM CDT Narrative [facility] - 11/02/2024 10:20 AM CDT Capillary blood samples, e.g. obtained by fingerstick, may have inaccurate results in patients with decreased peripheral blood flow. Method description: All results are measured using Electrochemistry test methodology. The glucose in the sample mixes with the reagents on the test strip. The reaction produces an electric current. The amount of current produced is proportional to the glucose concentration in the blood. All POC Glucose screen test results, including critical values, must be interpreted and evaluated in the context of the patients' clinical findings. It is recommended to confirm any questionable test results by core lab methodology. Stella Clark APRN POCT ORDERABLES - DEVICE F inal Result [facility] Unless otherwise noted, all lab tests performed by: Division of Pathology and Laboratory Medicine [address] [place] [id number] * CT Chest with Contrast (10/19/2024 10:26 AM CDT) Only the most recent of3 resultswithin the time period is included. Anatomical Region Laterality Modality Chest Computed Tomogra phy 10/19/2024 11:0 0 AM CDT Impressions 10/19/2024 11:09 AM CDT 1. There is a growing nodule at the inferior aspect of the treatment site in the right upper lobe raising concern for tumor recurrence. This could be evaluated further with PET/CT or percutaneous or endobronchial biopsy. 2. Mediastinal adenopathy has remained relatively stable. 3. Consolidation and interstitial prominence in the lingula and left lower lobe has remained stable over recent exams and may be sequela of aspiration or infection. 4. No more definite evidence of recurrent or new tumor. ACTIONABLE ITEMS/RECOMMENDATIONS*: None. *An Actionable Finding is a finding that may be unrelated to the original reason for imaging but potentially actionable, meaning further investigation may be necessary. The Actionable Findings Vigilance Unit (AFVU) assists medical providers with responding to additional radiologic findings that are unexpected and potentially actionable. Narrative 10/19/2024 11:09 AM CDT FULL RESULT: Examination: CT CHEST W CONTRAST on 10/19/2024 10:26 AM. Clinical History: Small cell carcinoma, NOS of upper lobe, lung <Right> Indication: Cancer restaging (treatment completion), Lung cancer recurrence suspected Comparison: 08/25/2024 Technique: CT of the chest is performed with intravenous contrast Findings: Lungs/Airways/Pleura: Severe emphysema. Scarring in the right upper lung radiation treatment field is seen again. There is a cavity is part of that scarring that probably is entrapped emphysema and has remained stable. A nodule at the inferior end of the scarring is slightly increased about 8 mm from about 6 mm in July. A small perivascular nodule in the left lower lobe is unchanged. Consolidation in the lingula is about the same. The interstitial thickening and ill-defined ground glass attenuation in the left lower lobe remains about the same. No pleural effusion. Neck/Mediastinum/Nodes/Heart: Cardiac chamber sizes are normal. Moderate multivessel coronary calcifications are present. Multistation bilateral mediastinal and left hilar enhancing lymph nodes remain unchanged back to the April exam at least. There is little or no drying rack changer a couple of years. Upper abdomen: Wire biliary stent. Cholecystectomy. Hepatic cysts. Pancreatic duct dilatation seen again. The remainder of the visualized upper abdomen is unremarkable. Bones/Soft Tissues: Right 4th rib fracture presumably related to radiation therapy, unchanged. Bones are somewhat osteopenic overall. No destructive or suspicious bone lesions. Procedure Note Dutch Jade MD - 10/19/2024 FULL RESULT: Examination: CT CHEST W CONTRAST on 10/19/2024 10:26 AM. Clinical History: Small cell carcinoma, NOS of upper lobe, lung <Right> Indication: Cancer restaging (treatment completion), Lung cancerrecurrence suspected Comparison: 08/25/2024 Technique: CT of the chest is performed with intravenous contrast Findings: Lungs/Airways/Pleura: Severe emphysema. Scarring in the right upper lungradiation treatment field is seen again. There is a cavity is part of thatscarring that probably is entrapped emphysema and has remained stable. Anodule at the inferior end of the scarring is slightly increased about 8mm from about 6 mm in July. A small perivascular nodule in the leftlower lobe is unchanged. Consolidation in the lingula is about the same.The interstitial thickening and ill-defined ground glass attenuation inthe left lower lobe remains about the same. No pleural effusion. Neck/Mediastinum/Nodes/Heart: Cardiac chamber sizes are normal. Moderatemultivessel coronary calcifications are present. Multistation bilateralmediastinal and left hilar enhancing lymph nodes remain unchanged back tothe April exam at least. There is little or no drying rack changer a couple ofyears. Upper abdomen: Wire biliary stent. Cholecystectomy. Hepatic cysts.Pancreatic duct dilatation seen again. The remainder of the visualizedupper abdomen is unremarkable. Bones/Soft Tissues: Right 4th rib fracture presumably related to radiationtherapy, unchanged. Bones are somewhat osteopenic overall. No destructiveor suspicious bone lesions. IMPRESSION: 1. There is a growing nodule at the inferior aspect of the treatment sitein the right upper lobe raising concern for tumor recurrence. This couldbe evaluated further with PET/CT or percutaneous or endobronchialbiopsy. 2. Mediastinal adenopathy has remained relatively stable. 3. Consolidation and interstitial prominence in the lingula and leftlower lobe has remained stable over recent exams and may be sequela ofaspiration or infection. 4. No more definite evidence of recurrent or new tumor. ACTIONABLE ITEMS/RECOMMENDATIONS*: None. *An Actionable Finding is a finding that may be unrelated to the originalreason for imaging but potentially actionable, meaning furtherinvestigation may be necessary. The Actionable Findings Vigilance Unit(AFVU) assists medical providers with responding to additional radiologicfindings that are unexpected and potentially actionable. Stella Clark APRN IM CT ORDERABLES Final Re sult * POC Creatinine (10/19/2024 9:27 AM CDT) Only the most recent of2 resultswithin the time period is included. POC Creatinine 0.6 0.6 - 1.3 mg/dL 10/19/2024 9:29 AM CDT [facility] Comment:Medications, especia lly hydroxyurea or supplements, such as ascorbate, can interfere with test results causing a falsely and significantly higher result than expected. If a problem is suspected with a patient's result, a sample should be sent to the laboratory for confirmatory testing. POC eGFR 104 >=60 mL/min/1.7 3 sq. m 10/19/2024 9:29 AM CDT [facility] Comment: The eGFRcr is calculated with [...] nor G2 fulfill criteria for CKD. Blood 10/19/2024 9:27 AM CDT 10/19/2024 9:29 AM CDT Narrative [facility] - 10/19/2024 9:29 AM CDT Method description: The i-STAT is [...] measure analyte concentration by an electrochemical assay. us Fanny Canseco APRN POCT ORDERABLES - DEVICE Fin al Result [facility] Unless otherwise noted, all lab tests performed by: Division of Pathology and Laboratory Medicine [address] [place] [id number] * Uric Acid (10/19/2024 9:26 AM CDT) Only the most recent of2 resultswithin the time period is included. Uric Acid 3.7 3.4 - 7.0 mg/dL 10/19/2024 11:30 AM CDT [facility] Blood Peripheral blood specimen / Unknown Venipuncture / Unknown 10/19/2024 9:26 AM CDT 10/19/2024 10:39 AM CDT Stella Amber CALL CENTER OPERATOR LAB BLOOD ORDERABLES Final Result [facility] Unless otherwise noted, all lab tests performed by: Division of Pathology and Laboratory Medicine [facility] [place] [address] * (ABNORMAL) SPIROMETRY W/O DILATORS AND BODY PLETHSMOGRAPHIC LUNG VOLUMES (10/19/2024 8:12 AM CDT) Pathologist [facility] FVC (L) pre 2.44 2.34 - 3.97 L 10/19/2024 4:26 PM CDT [facility] FEV1 (L) pre 1.05(L) 1.78 - 3.06 L 10/19/2024 4:26 PM CDT [facility] FEV1/FVC (%) pre 42.94(L) 64.80 - 89.03 % 10/19/2024 4:26 PM CDT [facility] FEF 25-75 (L/s) pre 0.45(L) 0.86 - 3.58 L/s 10/19/2024 4:26 PM CDT [facility] TLC (L) 8.45(H) 4.56 - 6.98 L 10/19/2024 4:26 PM CDT [facility] RV (L) 6.01(H) 1.22 - 3.05 L 10/19/2024 4:26 PM CDT [facility] RV/TLC (%) 71.14(H) 24.02 - 46.70 % 10/19/2024 4:26 PM CDT [facility] FVC (% pred) pre 77 % 10/19/2024 4:26 PM CDT [facility] FVC_PREZ-SCORE -1.45 10/19/2024 4:26 PM CDT [facility] FEV1 (%pred) pre 43 % 10/19/2024 4:26 PM CDT [facility] FEV1_PREZ-SCOR E -3.33 10/19/2024 4:26 PM CDT [facility] FEV1/FVC (% pred) pre 55 % 10/19/2024 4:26 PM CDT [facility] FEV1/FVC_PREZ- SCORE -3.44 10/19/2024 4:26 PM CDT [facility] FEF 25-75 (% pred) pre 23 % 10/19/2024 4:26 PM CDT [facility] OJX36-17%_PREZ -SCORE -2.53 10/19/2024 4:26 PM CDT [facility] TLC (% pred) 147 % 10/19/2024 4:26 PM CDT [facility] TLC_PREZ-SCORE 3.60 10/19/2024 4:26 PM CDT [facility] RV (% pred) 293 % 10/19/2024 4:26 PM CDT [facility] RV_PREZ-SCORE 5.54 10/19/2024 4:26 PM CDT [facility] RVTLC_PRED 35 10/19/2024 4:26 PM CDT [facility] RV%TLC_PREZ-SC ORE 4.95 10/19/2024 4:26 PM CDT [facility] 10/19/2024 7:38 AM CDT us Fanny N Ajith CALL CENTER OPERATOR PFT ORDERABLES Final Result [facility] * (ABNORMAL) 6 minute walk test (10/19/2024 7:38 AM CDT) [facility] 6MWD_Test 160.00(L) 331.72 - 637.72 m 10/19/2024 7:38 AM CDT [facility] Dist. final_Test 40.00 m 10/19/2024 7:38 AM CDT [facility] Laps_Test 2.00 10/19/2024 7:38 AM CDT [facility] Pauses_Test 0.00 10/19/2024 7:38 AM CDT [facility] SpO2min_Test 94.00 % 10/19/2024 7:38 AM CDT [facility] Wg99_Zwhz 0.00 min 10/19/2024 7:38 AM CDT [facility] HRmax_Test 109.00 BPM 10/19/2024 7:38 AM CDT [facility] O2 Flow_Test 2.00 L/min 10/19/2024 7:38 AM CDT [facility] Lap Dist_Test 60.00 m 10/19/2024 7:38 AM CDT [facility] Dyspnea_Baseli ne 1.00 10/19/2024 7:38 AM CDT [facility] Exertion_Basel ine 1.00 10/19/2024 7:38 AM CDT [facility] SpO2_Baseline 100.00 % 10/19/2024 7:38 AM CDT [facility] Ot09_Yoqhaclz 0.00 min 10/19/2024 7:38 AM CDT [facility] HR_Baseline 83.00 1/min 10/19/2024 7:38 AM CDT [facility] HRmax_Baseline 84.00 BPM 10/19/2024 7:38 AM CDT [facility] BP Sys_Baseline 108.00 mmHg 10/19/2024 7:38 AM CDT [facility] BP Dia_Baseline 76.00 mmHg 10/19/2024 7:38 AM CDT [facility] O2 Flow_Baseline 2.00 L/min 10/19/2024 7:38 AM CDT [facility] Dyspnea_Recove ry 7.00 10/19/2024 7:38 AM CDT [facility] Exertion_Recov easton 7.00 10/19/2024 7:38 AM CDT [facility] SpO2_Recovery 100.00 % 10/19/2024 7:38 AM CDT [facility] Bf12_Cppymooy 0.00 min 10/19/2024 7:38 AM CDT [facility] HR_Recovery 79.00 1/min 10/19/2024 7:38 AM CDT [facility] HRmax_Recovery 103.00 BPM 10/19/2024 7:38 AM CDT [facility] BP Sys_Recovery 112.00 mmHg 10/19/2024 7:38 AM CDT [facility] BP Dia_Recovery 78.00 mmHg 10/19/2024 7:38 AM CDT [facility] O2 Flow_Recovery 2.00 L/min 10/19/2024 7:38 AM CDT [facility] 10/19/2024 7:04 AM CDT us Fanny N Ajith CALL CENTER OPERATOR PFT ORDERABLES Final Result [facility] * X-ray Chest 2 Views (09/22/2024 3:35 PM CDT) Anatomical Region Laterality Modality Chest Digital Radiogra phy 09/22/2024 3:36 PM CDT Impressions 09/22/2024 3:40 PM CDT Opacities in the lower lungs may reflect atelectasis, aspiration and/or pneumonia. ACTIONABLE ITEMS/RECOMMENDATIONS*: None. *An Actionable Finding is a finding that may be unrelated to the original reason for imaging but potentially actionable, meaning further investigation may be necessary. The Actionable Findings Vigilance Unit (AFVU) assists medical providers with responding to additional radiologic findings that are unexpected and potentially actionable. Narrative 09/22/2024 3:40 PM CDT FULL RESULT: Examination: XR CHEST 2 VW on 09/22/2024 3:35 PM. Clinical History: Small cell carcinoma, NOS of upper lobe, lung <Right> Indication: Infiltrate Comparison: Chest portable 10/21/2021 at 1538 hours; chest CT 08/25/2024 Technique: Posteroanterior, lateral and dual-energy radiographs of the chest Findings: Support Apparatus: None. Lungs/Pleura/Mediastinum: Lungs are severely emphysematous. Opacities in the right apex and the lingula are again seen. Additional patchy right infrahilar opacity. No pleural effusion or pneumothorax. Unchanged cardiomediastinal silhouette. Procedure Note de Groot, Brisa, MD - 09/22/2024 FULL RESULT: Examination: XR CHEST 2 VW on 09/22/2024 3:35 PM. Clinical History: Small cell carcinoma, NOS of upper lobe, lung <Right> Indication: Infiltrate Comparison: Chest portable 10/21/2021 at 1538 hours; chest CT 08/25/2024 Technique: Posteroanterior, lateral and dual-energy radiographs of thechest Findings: Support Apparatus: None. Lungs/Pleura/Mediastinum: Lungs are severely emphysematous. Opacities inthe right apex and the lingula are again seen. Additional patchy rightinfrahilar opacity. No pleural effusion or pneumothorax. Unchangedcardiomediastinal silhouette. IMPRESSION: Opacities in the lower lungs may reflect atelectasis, aspiration and/orpneumonia. ACTIONABLE ITEMS/RECOMMENDATIONS*: None. *An Actionable Finding is a finding that may be unrelated to the originalreason for imaging but potentially actionable, meaning furtherinvestigation may be necessary. The Actionable Findings Vigilance Unit(AFVU) assists medical providers with responding to additional radiologicfindings that are unexpected and potentially actionable. us Stella Clark APRN IMG DIAGNOSTIC IMAGING ORD ERABLES Final Result * (ABNORMAL) Differential (09/22/2024 2:50 PM CDT) Total Cells 100 09/22/2024 4:09 PM CDT [facility] Manual Neutrophil % 44.0 43.2 - 72.7 % 09/22/2024 4:09 PM CDT [facility] Comment:The Neutrophil count includes Bands. Manual Lymphocyte % 45.0 16.8 - 46.2 % 09/22/2024 4:09 PM CDT [facility] Manual Monocyte % 4.0(L) 5.1 - 12.5 % 09/22/2024 4:09 PM CDT [facility] Manual Eosinophil % 6.0 0.4 - 6.3 % 09/22/2024 4:09 PM CDT [facility] Manual Basophil % 1.0 0.2 - 1.4 % 09/22/2024 4:09 PM CDT [facility] Metamyelocyte % 4:09 PM CDT [facility] Comment:The Metamyelocyte co unt includes Myelocytes. Manual Neutrophil Abs 4.09 1.95 - 7.25 K/uL 09/22/2024 4:09 PM CDT [facility] Manual Lymphocyte Abs 4.19(H) 1.01 - 3.24 K/uL 09/22/2024 4:09 PM CDT [facility] Manual Monocyte Abs 0.37 0.24 - 0.85 K/uL 09/22/2024 4:09 PM CDT [facility] Manual Eosinophil Abs 0.56(H) 0.02 - 0.50 K/uL 09/22/2024 4:09 PM CDT [facility] Manual Basophil Abs 0.09 0.02 - 0.09 K/uL 09/22/2024 4:09 PM CDT [facility] RBC Morphology PRESENT 09/22/2024 4:09 PM CDT [facility] PLT Morph Normal Normal 09/22/2024 4:09 PM T [facility] Schistocyte Few 09/22/2024 4:09 PM T [facility] Anisocytosis Present(A) (none) 09/22/2024 4:09 PM T [facility] Ovalocyte Present(A) (none) 09/22/2024 4:09 PM T [facility] Murdock Cells Present(A) (none) 09/22/2024 4:09 PM [facility] Blood Peripheral blood specimen / Unknown Venipuncture / Unknown 09/22/2024 2:50 PM CDT 09/22/2024 2:51 PM CDT Stella Clark CALL CENTER OPERATOR LAB BLOOD ORDERABLES Final Result [facility] [address] [facility] [place] [address] after 03/18/2024 Insurance * Guarantor: Chato Moreno IV Account Type Relation to Patient Date of Phone Billing Address Personal/Family Self 1955 [address] [facility] [address] [place] [address] [address] [place] [address] [employer] Advance Directives * Full Code (Latest Code Status on File) Date Activated Date Inactivated Comments 11/12/2024 9:59 AM Update based o n Advanced Directive Documentation * Full Code Date Activated Date Inactivated Comments 10/15/2021 2:23 PM 10/24/2021 8:32 PM * Full Code Date Activated Date Inactivated Comments 09/03/2021 10:00 PM 09/07/2021 5:51 PM * Full Code Date Activated Date Inactivated Comments 02/16/2021 11:33 PM 03/02/2021 8:45 PM * Full Code Date Activated Date Inactivated Comments 01/22/2021 1:08 AM 01/30/2021 8:41 PM Care Teams Del[employer]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 PCP - General Thoracic Medicine 04/21/20 Kang Piedra MD [address] [place] [phone] [email or web address] PCP - External Follow Up C Dermatology 06/12/20 Mary Beth Hinson [facility] [address] [place] [id number] [email or web address] Language Pathologist Speech Pathology 04/16/21 Clay Hernandez MD [address] [place] [phone] [email or web address] Consulting Physician Pulmonary Medicine 03/31/20 Kang Monreal MD [address] [place] [phone] [email or web address] Consulting Physician Hematology and Oncology 04/16/21 Patrick Huerta MD [address] [place] [phone] [email or web address] Consulting Physician Dermatology 05/18/20 Daisy Garay MD [address] [place] [phone] [email or web address] Consulting Physician Pulmonary Medicine 11/10/24 Raj Oneal MD [address] [place] [phone] [email or web address] Consulting Physician Radiation Oncology 11/23/24
[2025-03-18] MEDS ORDERED: ALBUTEROL 2.5 MG/3 ML NEB SOL ONE (23:45)
[2025-03-18 23:47] LABS: Absolute Lymphocytes (CBC) 1.1 K/uL (0.7-4.9); Hematocrit 30.9 % (39.6-49.0); Hemoglobin 10.2 g/dL (13.6-17.9); MCH 28.5 pg (27.0-35.0); MCHC 33.0 g/dL (32.0-36.0); MCV 86.2 fL (80-100); MPV 7.6 fL (7.6-11.3); Nucleated RBC Absolute Count 0.0 (0-0); Nucleated Red Blood Cells % 0.0 % (0-0); RBC Red Blood Cell Count 3.59 M/uL (4.33-5.43); White Blood Count 8.40 thou/uL (4.3-10.9)
[2025-03-19 00:10] LABS: Influenza A Ag Negative; Influenza B Ag Negative; SARS-CoV-2 Antigen Rapid Res Negative (Negative)
[2025-03-19 00:11] LABS: Anion Gap 5.7 mEq/L (5.0-15.0); BUN Blood Urea Nitrogen 6.0 mg/dL (7-18); Glucose Level 101.0 mg/dL (74-106); NT PRO-BNP 269.0 pg/mL (<125); Potassium 4.7 mEq/L (3.5-5.1); Troponin High Sensitivity 4.0 pg/mL (<58.9)
--- NOTE | 2025-03-19 02:41 | RAD REPORT ---
EXAM: CT Angiography Chest With Intravenous Contrast CLINICAL HISTORY: The patient is 69 years old and is Male; DYSPNEA TECHNIQUE: Axial computed tomographic angiography images of the chest with intravenous contrast. Sagittal an d coronal reformatted images were created and reviewed. This CT exam was performed using one or more of the following dose reduction techniques: automated exposure control, adjustment of the mA a nd/or kV according to patient size, and/or use of iterative reconstruction technique. MIP reconstructed images were created and reviewed. COMPARISON: Report from prior CT of January 27, 2024, images not available for review. FINDINGS: PULMONARY ARTERIES: There are no obvious filling defects identified within the pulmonary arteries to suggest pulmonary embolism. AORTA: No acute findings. No thoracic aortic aneurysm. LUNGS AND PLEURAL SPACES: Scarring within the right upper lobe with associated bronchiectasis and cystic change along with volume loss of the right lung is present. The lungs are hyperinflated with extensive emphysematous change. Atelectasis within the lingula and left lower lobe is noted. Sub tle groundglass opacity specifically within the left lower lobe are present. There is no effusion or pneumothorax. The tracheobronchial tree is patent. HEART: Unremarkable. No cardiomegaly. No significant pericardial effusion. No evidence of R V dysfunction. BONES/JOINTS: No acute fracture. No dislocation. SOFT TISSUES: Unremarkable. LYMPH NODES: Unremarkable. No enlarged lymph nodes. IMPRESSION: 1. Extensive emphysematous changes of lungs with scarring specifically in the right upper lobe erik g with bronchiectatic change. This was reported on prior exam. 2. Subtle groundglass opacities in the left lower lobe suggesting developing infectious process. 3. No evidence of pulmonary embolism. Pulmonary emphysema is present. Pulmonary emphysema is an independent risk factor for lung cancer. Re commend patient be considered for lung cancer screening. [place] Preventive Services Task Force. Screening for Lung Cancer: [place] Preventive Services Task Force Recommendation Statement. AIYANA. 2020;325 (10):962-970. Electronically signed by: Alix Mackey MD 03/19/2025 02:33 AM CDT RP Due to temporary technical issues with the PACS/Contapps reporting system, reports are being nitin d by the in-house radiologist without review as a courtesy to ensure prompt reporting the interpreting radiologist is fully responsible for the content of the report. Transcribed Date/Time: 03/19/2025 2:41 AM
--- NOTE | 2025-03-19 02:51 | EDPHYS ---
Physician Documentation [facility] Name: Chato Moreno IV Age: 69 yrs Sex: Male : 1955 Arrival Date: 03/18/2025 Time: 22:40 Bed 3 Private MD: ED Physician Elias Hernandez HPI: 03/19 02:59 This 69 yrs old Male presents to ER via EMS with complaints of Shortness Of Breath. tt7 02:59 The patient has shortness of breath at rest. Onset: The symptoms/episode began/occurred tt7 2 hour(s) ago. Duration: The symptoms are continuous, but are markedly better than the original presentation. The patient's shortness of breath has no apparent modifying factors. Associated signs and symptoms: Pertinent positives: productive cough, Pertinent negatives: chest pain, diaphoresis, fever, vomiting. The patient has not experienced similar symptoms in the past. Patient has history of lung cancer, not on chemotherapy, recently completed course of radiation, sees cancer specialist at [facility], also has history of atrial fibrillation and is on chronic anticoagulation. Historical: - Allergies: 03/18 23:04 No Known Allergies; lg3 - PMHx: 23:04 Atrial fibrillation; COPD; Emphysema; Lung Cancer; Pneumonia; hypotension (Pneumonia); lg3 - PSHx: 23:04 Cholecystectomy; lg3 - Immunization history:: Adult Immunizations up to date. - Infectious Disease History:: Denies. - Social history:: Smoking status: Patient reports the use of cigarette tobacco products, smokes one pack cigarettes per day. Patient/guardian denies using alcohol, street drugs. ROS: 03/19 03:01 Constitutional: negative for fever. Cardiovascular: negative for chest pain. tt7 Abdomen/GI: negative for abdominal pain, nausea, vomiting, diarrhea. MS/Extremity: negative for injury and deformity. Skin: negative for rash. Neuro: negative for focal weakness. Constitutional: Positive for chills, 03:02 Respiratory: Positive for cough, shortness of breath, Negative for hemoptysis, tt7 Exam: 03:02 Constitutional: vital signs reviewed, frail appearing. Head/Face: normocephalic, tt7 atraumatic. Eyes: no conjunctival injection, anicteric sclerae. ENT: mucus membranes moist. Neck: trachea midline, no JVD, no meningismus. Chest/axilla: normal chest wall appearance and motion, nontender, no crepitus. Cardiovascular: regular rate and rhythm, no murmurs, no rubs, no lower extremity edema. Respiratory: normal respiratory effort, no accessory muscle use, mildly diminished lung sounds in the right upper lung hood, few expiratory wheezes in the left lower lung hood Abdomen/GI: soft, nondistended, nontender, no guarding or rebound, negative Armendariz's sign, no McBurney point tenderness. Back: normal ROM. Skin: warm, dry, intact, normal turgor, normal color, no rash. MS/ Extremity: normal ROM of extremities, no gross deformities. Neuro: alert and oriented with appropriate mental status, normal speech, follows commands, no focal neurologic deficits. Psych: appropriate mood and affect. Vital Signs: 03/18 23:01 BP 100 / 88; Pulse 84; Resp 16 S; Temp 97.7(O); Pulse Ox 100% on 3 lpm NC; Weight 48.08 lg3 kg (R); Height 5 ft. 6 in. (R); Pain 0/10; 03/19 00:51 BP 116 / 81; Pulse 75; Resp 17 S; Pulse Ox 100% on 3 lpm NC; lg3 04:05 BP 122 / 83; Pulse 70; Resp 16 S; Pulse Ox 100% on 3 lpm NC; lg3 03/18 23:01 Body Mass Index 17.11 (48.08 kg, 167.64 cm) lg3 03/18 23:01 Pain Scale: Adult lg3 MDM: 03/18 22:53 Medical Screening Exam initiated tt7 03/19 03:03 Differential diagnosis: Anemia Anxiety Reaction Chronic Obstructive Pulmonary Disease tt7 Myocardial Infarction pneumonia, Pneumothorax pulmonary edema, Pulmonary Embolism. Data reviewed: vital signs, nurses notes, lab test result(s), cardiac enzymes, CBC, electrolytes, radiologic studies, CT scan, plain films. Consideration of Admission/Observation Escalation of care including admission/observation considered. Independent interpretation of the following test(s) in the Emergency Department X-Ray: My interpretation is Chest x-ray shows left lower lobe infiltrate concerning for infectious process. CT Scan: My interpretation is No evidence of pulmonary embolism, emphysematous changes, left lower lobe ground glass opacities concerning for infectious process. Historians other than the Patient: EMS: . Care significantly affected by the following chronic conditions: Chronic Obstructive Pulmonary Disease, Cancer. Counseling: I had a detailed discussion with the patient and/or guardian regarding the historical points, exam findings, and any diagnostic results supporting the discharge/admit diagnosis, lab results, radiology results, the need for outpatient follow up, to return to the emergency department if symptoms worsen or persist or if there are any questions or concerns that arise at home. ED course: 69-year-old male with shortness of breath, on arrival vital signs are stable, some diminished lung sounds and wheezes on exam but overall not in respiratory distress, no hypoxia, history of lung cancer, cardiac workup initiated along with CT angiogram of the chest to rule out pulmonary embolism. Laboratory workup overall reassuring, chest x-ray shows a left lower lobe infiltrate concerning for pneumonia, patient refused EKG, patient was made aware of the risk of this and in completion of ACS workup but continued to refuse despite these risks, troponin negative, patient did not have chest pain, low suspicion for ACS, patient given albuterol inhaler to improve his wheezes, I reassessed the patient after this intervention and he was significantly improved, CT angiogram did not show any evidence of pulmonary embolism, there was some ground glass opacities in the left lower lobe concerning for pneumonia, he was treated here in the emergency department with 1 g of ceftriaxone and 100 mg of doxycycline, patient discharged with course of cefuroxime and doxycycline and instructions to follow-up with his lung specialist. Emergency department evaluation is reassuring. I do not suspect life-threatening process. Patient is stable and not in need of emergent medical intervention. I had a detailed discussion with the patient regarding the historical points, exam findings, emergency department evaluation, diagnostic results, and the discharge diagnosis. I discussed outpatient management of the patient's condition. I discussed the need for outpatient follow-up with primary care and relevant specialist. I discussed return precautions including the need to return to the ED if symptoms do not improve, worsen, or if there are any questions or concerns that arise at home. The patient was discharged in stable condition. 03/18 23:23 Order name: Basic Metabolic Panel; Complete Time: 00:15 tt7 03/18 23:23 Order name: CBC with Diff; Complete Time: 00:15 tt7 03/18 23:23 Order name: NT PRO-BNP; Complete Time: 00:15 tt7 03/18 23:23 Order name: Troponin HS; Complete Time: 00:15 tt7 03/18 23:24 Order name: COVID-19 Ag + Flu A+B Ag; Complete Time: 00:15 tt7 03/18 23:23 Order name: XRAY Chest (1 view) tt7 03/18 23:23 Order name: CT Chest For PE Angio tt7 03/18 23:23 Order name: Cardiac monitoring; Complete Time: 23:31 tt7 03/18 23:23 Order name: IV Saline Lock; Complete Time: 23:29 tt7 03/18 23:23 Order name: Labs collected and sent; Complete Time: 23:31 tt7 03/18 23:23 Order name: O2 Per Protocol; Complete Time: 23:31 tt7 03/18 23:23 Order name: O2 Sat Monitoring; Complete Time: 23:31 tt Administered Medications: 03/18 23:46 Drug: Albuterol Inhalation 2.5 mg Inhalation once Route: Inhalation; lg3 03/19 00:51 Follow up: Response: No adverse reaction lg3 03:28 Drug: Rocephin IV 1 grams IV at bolus once; Given slow IV push per pharmacy mf3 instructions Route: IV; Rate: bolus; Site: left hand; 04:04 Follow up: Response: No adverse reaction; IV Status: Completed infusion; IV Intake: [id number] 03:28 Drug: Doxycycline PO 100 mg PO once Route: PO; 3 04:04 Follow up: Response: No adverse reaction lg3 Disposition: 03:09 Co-signature as Attending Physician, Elias Hernandez DO. tt7 Disposition Summary: 03/19/25 02:50 Discharge Ordered Notes: Location: Home tt7 Problem: chronic tt7 Symptoms: have improved tt7 Condition: Stable tt7 Diagnosis - Pneumonia, unspecified organism tt7 - Dyspnea tt7 Followup: tt7 - With: Emergency Department - When: As needed - Reason: Followup: tt7 - With: Kenneth Ortiz MD - When: 1 - 2 days - Reason: Recheck today's complaints Discharge Instructions: - Discharge Summary Sheet tt7 - Community-Acquired Pneumonia, Adult tt7 Forms: - Medication Reconciliation Form tt7 - Antibiotic Education tt7 - Prescription Opioid Use tt7 - Patient Portal Instructions tt7 - Leadership Thank You Letter tt7 Prescriptions: - cefuroxime axetil 500 mg Oral tablet - take 1 tablet ORAL route 2 times per day for 7 days; 14 tablet; Refills: 0, tt7 Product Selection Permitted - Doxycycline Hyclate 100 mg Oral tablet - take 1 tablet ORAL route every 12 hours for 7 days; 14 tablet; Refills: 0, tt7 Product Selection Permitted Signatures: Dispatcher [employer] EDMS Tara Savage RN RN lg3 Marysol Grimaldo RN RN mf3 Elias Hernandez DO DO tt7 Corrections: (The following items were deleted from the chart) 03/18 23:24 23:24 Chest Single View+RAD.RAD.BRZ ordered. EDMS EDMS 23:24 23:24 Chest For PE Angio+CT.RAD.BRZ ordered. EDMS EDMS 23:24 23:24 COVID-19 Ag + Flu A+B Ag+I.LAB.BRZ ordered. EDMS EDMS 23:52 23:23 EKG - Nurse/Tech ordered. tt7 cp4 03/19 03:02 03:01 Respiratory: Positive for cough, shortness of breath, Negative for hemoptysis, tt7 wheezing, tt7
--- NOTE | 2025-03-19 02:51 | ER ---
Nurse's Notes [facility] Name: Chato Moreno IV Age: 69 yrs Sex: Male : 1955 Arrival Date: 03/18/2025 Time: 22:40 Bed 3 Private MD: Diagnosis: Pneumonia, unspecified organism;Dyspnea Presentation: 03/18 23:01 Chief complaint: Patient states: SOB X1 episode RESPIRATORY TECH which resolved. no complaints at lg3 this time other than "being cold". Coronavirus screen: Client denies travel out of the [place] in the last 14 days. At this time, the client does not indicate any symptoms associated with coronavirus-19. Ebola Screen: No symptoms or risks identified at this time. Initial Sepsis Screen: Does the patient meet any 2 criteria? No. Patient's initial sepsis screen is negative. Does the patient have a suspected source of infection? No. Patient's initial sepsis screen is negative. Risk Assessment: Do you want to hurt yourself or someone else? Patient reports no desire to harm self or others. Onset of symptoms is unknown. 23:01 Method Of Arrival: EMS: [facility] 3 23:01 Acuity: STEWART 4 lg3 Triage Assessment: 23:04 General: Appears in no apparent distress. slender, Behavior is agitated, fussy, lg3 uncooperative. Pain: Denies pain. EENT: No deficits noted. No signs and/or symptoms were reported regarding the EENT system. Neuro: Swift Agitation-Sedation Scale (RASS): +2 Agitated Level of Consciousness is awake, alert, obeys commands, Oriented to person, place, time, situation. Cardiovascular: No deficits noted. Denies chest pain, shortness of breath, Capillary refill < 3 seconds Clubbing of nail beds is absent JVD is absent Patient's skin is warm and dry. Respiratory: No deficits noted. Reports shortness of breath since resolved Onset: The symptoms/episode began/occurred suddenly, the patient reports symptoms have resolved. GI: No deficits noted. No signs and/or symptoms were reported involving the gastrointestinal system. Abdomen is flat, non-distended. : No signs and/or symptoms were reported regarding the genitourinary system. Derm: No deficits noted. No signs and/or symptoms reported regarding the dermatologic system. Skin is intact, is thin, Skin is dry, Skin is normal, Skin temperature is warm. Musculoskeletal: No deficits noted. No signs and/or symptoms reported regarding the musculoskeletal system. Circulation, motion, and sensation intact. Range of motion: intact in all extremities. Historical: - Allergies: 23:04 No Known Allergies; lg3 - PMHx: 23:04 Atrial fibrillation; COPD; Emphysema; Lung Cancer; Pneumonia; hypotension (Pneumonia); lg3 - PSHx: 23:04 Cholecystectomy; lg3 - Immunization history:: Adult Immunizations up to date. - Infectious Disease History:: Denies. - Social history:: Smoking status: Patient reports the use of cigarette tobacco products, smokes one pack cigarettes per day. Patient/guardian denies using alcohol, street drugs. Screenin:07 [facility] ED Fall Risk Assessment (Adult) History of falling in the last 3 months, lg3 including since admission No falls in past 3 months (0 pts) Confusion or Disorientation No (0 pts) Intoxicated or Sedated No (0 pts) Impaired Gait No (0 pts) Mobility Assist Device Used No (0 pt) Altered Elimination No (0 pt) Score/Fall Risk Level 0 - 2 = Low Risk Oriented to surroundings, Maintained a safe environment, Educated pt \\T\\ family on fall prevention, incl call for assistance when getting out of bed, Assessed \\T\\ reinforced patient's understanding of fall precautions. Abuse screen: Denies threats or abuse. Denies injuries from another. Nutritional screening: No deficits noted. Tuberculosis screening: No symptoms or risk factors identified. Assessment: 23:07 General: see triage assessment. Cardiovascular: No deficits noted. Rhythm is PT refused lg3 EKG. Respiratory: Airway is patent Respiratory effort is even, unlabored, Respiratory pattern is regular, symmetrical, Breath sounds with crackles bilaterally. 23:46 General: pt still refusing EKG. provider notified. lg3 03/19 00:52 Reassessment: Patient appears in no apparent distress at this time. No changes from lg3 previously documented assessment. Patient and/or family updated on plan of care and expected duration. Pain level reassessed. Patient is alert, oriented x 3, equal unlabored respirations, skin warm/dry/pink. 02:00 Reassessment: Patient appears in no apparent distress at this time. No changes from lg3 previously documented assessment. Patient and/or family updated on plan of care and expected duration. Pain level reassessed. Patient is alert, oriented x 3, equal unlabored respirations, skin warm/dry/pink. Patient states feeling better. Patient states symptoms have improved. 04:04 Reassessment: Patient appears in no apparent distress at this time. No changes from lg3 previously documented assessment. Patient and/or family updated on plan of care and expected duration. Pain level reassessed. Patient is alert, oriented x 3, equal unlabored respirations, skin warm/dry/pink. DC pending transportation. Vital Signs: 03/18 23:01 BP 100 / 88; Pulse 84; Resp 16 S; Temp 97.7(O); Pulse Ox 100% on 3 lpm NC; Weight 48.08 lg3 kg (R); Height 5 ft. 6 in. (R); Pain 0/10; 03/19 00:51 BP 116 / 81; Pulse 75; Resp 17 S; Pulse Ox 100% on 3 lpm NC; lg3 04:05 BP 122 / 83; Pulse 70; Resp 16 S; Pulse Ox 100% on 3 lpm NC; lg3 03/18 23:01 Body Mass Index 17.11 (48.08 kg, 167.64 cm) lg3 03/18 23:01 Pain Scale: Adult lg3 ED Course: 03/18 22:52 Patient arrived in ED. cp4 22:53 Elias Hernandez DO is Attending Physician. tt7 23:01 Tara Savage, ELLA is Primary Nurse. lg3 23:04 Triage completed. lg3 23:04 Arm band placed on right wrist. lg3 23:07 Patient has correct armband on for positive identification. Bed in low position. Call lg3 light in reach. Side rails up X 1. Client placed on continuous cardiac and pulse oximetry monitoring. NIBP monitoring applied. residential monitor on. Door closed. Noise minimized. Warm blanket given. Pillow given. 23:07 Maintain EMS IV. Dressing intact. Good blood return noted. Site clean \\T\\ dry. Gauge \\T\\ lg 3 site: 22 L Wrist. Flushed with 10 mL NS. 03/19 00:47 XRAY Chest (1 view) In Process Unspecified. EDMS 00:52 CT Chest For PE Angio In Process Unspecified. EDMS 02:50 Kenneth Ortiz MD is Referral Physician. tt7 04:22 No provider procedures requiring assistance completed. IV discontinued, intact, lg3 bleeding controlled, No redness/swelling at site. Pressure dressing applied. Administered Medications: 03/18 23:46 Drug: Albuterol Inhalation 2.5 mg Inhalation once Route: Inhalation; lg3 03/19 00:51 Follow up: Response: No adverse reaction lg3 03:28 Drug: Rocephin IV 1 grams IV at bolus once; Given slow IV push per pharmacy mf3 instructions Route: IV; Rate: bolus; Site: left hand; 04:04 Follow up: Response: No adverse reaction; IV Status: Completed infusion; IV Intake: [id number] 03:28 Drug: Doxycycline PO 100 mg PO once Route: PO; 3 04:04 Follow up: Response: No adverse reaction lg3 Medication: 03/18 23:07 VIS not applicable for this client. lg3 Intake: 03/19 04:04 IV: 10ml; Total: 10ml. lg3 Outcome: 02:50 Discharge ordered by MD. tt7 04:22 Discharged to home via ambulance, lg3 04:22 Condition: stable 04:22 Discharge instructions given to patient, Instructed on discharge instructions, follow up and referral plans. medication usage, Demonstrated understanding of instructions, follow-up care, medications, Prescriptions given X 2, 04:23 Patient left the ED. lg3 Signatures: Dispatcher [employer] EDMS Tara Savage RN RN lg3 Dana Michael 4 Marysol Grimaldo RN RN mf3 Elias Hernandez, DO tt7
--- NOTE | 2025-03-19 03:13 | RAD REPORT ---
CLINICAL HISTORY: SOB COMPARISON: February 04, 2024 Radiograph Chest 1 View. FINDINGS: The lungs are emphysematous. Little change in the appearance of the pleural and parenchymal opacities within the right lung apex. The reticular interstitial changes within the left lung base are similar to prior exam. No pleural effusion. No pneumothorax. The heart size and mediastinal contours are stable. IMPRESSION: 1. Emphysema with no change pleural and parenchymal opacities right lung apex. 2. Left lower lobe atelectasis or infiltrate. RECOMMENDATIONS: Electronically signed by: Luis Enrique Roman MD 03/19/2025 02:49 AM CDT RP Due to temporary technical issues with the PACS/Declara reporting system, reports are being nitin d by the in-house radiologist without review as a courtesy to ensure prompt reporting. The interpreting radiologist is fully responsible for the content of the report. Transcribed Date/Time: 03/19/2025 3:13 AM
[2025-03-19] MEDS ORDERED: DOXYCYCLINE 100 MG CAP PO ONE (03:18)
[2025-03-19] MEDS ORDERED: CEFTRIAXONE 1000 MG/VIAL ONE (03:18)
[2025-03-19 04:28] VITALS: TEMP 97.7; O2SAT 100
[2025-03-19 04:31] VITALS: BP 122/83
== END 2025-03-19 04:23 | disposition home or self-care (01) ==
LOC: ER 22:40
DX: J18.9 Pneumonia, unspecified organism (principal); R06.00 Dyspnea, unspecified; I48.91 Unspecified atrial fibrillation; J44.9 Chronic obstructive pulmonary disease, unspecified; Z11.52 Encounter for screening for COVID-19
CPT/HCPCS: 96365; 85025; 80048; 36415; 84484; 83880; 71275; 71045; 99285; 87428; Q9967; J7613; J0696

== ENCOUNTER 2025-03-25 08:19 | Emergency (ER) | payer OTHER ==
--- OUTSIDE RECORDS SUMMARY | 2025-03-25 08:26 | XMS REPORT | Clinical Summary ---
Author Name Unknown Organization [facility] Address [address] [place] [address] Care Team Providers Care Oxygen Equipment Preparer Name Role Phone Carl Jones MD Unavailable Luis Angel Cervantes MD, Frank Primary Care Provider [phone] Kang Piedra MD Unavailable [phone] Mary Beth Hinson [facility]/MEDICAL INTERPRETER Unavailable [email or web address] Clay Hernandez MD Unavailable [phone] Kang Monreal MD Unavailable [phone] Patrick Huerta MD Unavailable [phone] Daisy Garay MD Unavailable Raj Oneal [...] mouth twice daily. Active methylPREDNISolo ne (Medrol, Eknji,) 4 mg tabletIndication s:Shortness of breath Take [...] mild pain or moderate pain (Marj Berly, CROWN WHEEL ASSEMBLER). 30 tablet 09/08/19 22 3:54 PM CONCRETE BUCKET UNLOADER 022 2024 Discontinued Ventolin HFA 90 mcg/actuation [...] (10/18/2021): Added automatically from request for surgery [id number] Community acquired pneumonia 09/03/2021 Small cell carcinoma of lung 05/17/2021 Overview (05/17/2021): Added automatically from request for surgery [id number] Family education about pain management 1 History of radiation therapy 02/16/2021 Pressure-induced deep tissue damage of other sit e 01/05/2021 Overview (01/05/2021): Site: Coccyx Sepsis 01/04/2021 Pulmonary embolism 11/17/2020 Stage 1 pressure ulcer of other site 11/14/2020 Overview (11/14/2020): Left ear- 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 related from nasal cannula Tube feeding diet [...] 08/10/2020 Decompensated COPD with acute exacerbation 07/30 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 opiate analgesic 2020 Small [...] Telephone [facility] Oncology [address] [facility], 9th [place] [address] Pito Randall RN 01/28/2025 6:10 PM CDT - 01/28/2025 11:59 PM CDT Hospital Encounter [email or web address] Diagnostic Imaging [address] [facility] Main [facility], 1st [place] [address] Discharge Disposition: Home 01/28/2025 6:09 PM CDT Hospital Encounter [facility] Diagnostic Imaging [address] [facility] Main Bldg, 1st [place] [address] Discharge Disposition: Home 01/28/2025 4:51 PM CDT - 01/28/2025 6:08 PM CDT Hospital Encounter [facility] Diagnostic Imaging [address] [facility] Main Bldg, 1st [place] [address] Discharge Disposition: Home 01/28/2025 3:00 PM CDT - 01/28/2025 4:50 PM CDT Hospital Encounter [facility] [address] [facility] Main Bldg, 2nd Floor Elevator C, Check-in at the [facility] [place] [address] Raj Oneal MD Wechsler, Adriana, MD Patel, [...] PM CDT Hospital Encounter [facility] [address] [place] [address] Main [place] [address] Henrique Plasencia MD Discharge Disposition: Home 01/28/2025 12:45 PM CDT - 01/28/2025 1:03 PM CDT Hospital Encounter [facility] [address] [place] [address] Main dg, 1st [place]oo [place] [address] Raj Oneal MD Small cell carcinoma of lung <Unspecified side> (Primary Dx); 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 Discharge Disposition: Home 01/28/2025 Travel 01/24/2025 [facility] [address] [place] [address] Main Bldg, 9th [place] [address] Ileana iTdwell MD 12/21/2024 Orders Only [facility] [address] Main Bldg, 1st [place]oo [place] [address] Brisa Ward APRN 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 (Primary Dx) 12/16/2024 9:26 AM CDT - 12/16/2024 11:59 PM CDT Hospital Encounter [facility] [address] Main [place] [address] Henrique Plasencia MD Discharge Disposition: Home 12/16/2024 Documentation [facility] [address] Main Bldg, 9th [place] [address] Raj Oneal MD 12/16/2024 Documentation [facility] [address] Main Bldg, 1st [place]oo [place] [address] Geroge Aguilar MD 12/15/2024 10:01 AM CDT - 12/15/2024 11:59 PM CDT Hospital Encounter [facility] [address] Main [place] [address] Henrique Plasencia MD Sunday, Edwin A, RN Discharge Disposition: Home 12/15/2024 9:38 AM CDT - 12/15/2024 10:00 AM CDT Hospital Encounter [facility] [address] Main [place] [address] Henrique Plasencia MD Discharge Disposition: Home 12/15/2024 Documentation [facility] [address] Main Bldg, 1st [place]oo [place] [address] Kang Calixto MD 12/14/2024 9:35 AM CDT - 12/14/2024 11:59 PM CDT Hospital Encounter [facility] [address] Main Bldg near Elevator [address] [place] [phone] Henrique Plasencia MD Discharge Disposition: Home 12/14/2024 Documentation [facility] [address] Main Bldg, 9th [place] [address] Raj Oneal MD 12/13/2024 9:40 AM CDT - 12/13/2024 11:59 PM CDT Hospital Encounter [facility] [address] Main Bld[place] [address] Henrique Plasencia MD Discharge Disposition: Home 12/13/2024 8:30 AM CDT - 12/13/2024 9:39 AM CDT Hospital Encounter [facility] [address] Main Bldg, 1st [place]oo [place] [address] Raj Oneal MD Discharge Disposition: Home 12/13/2024 Documentation [facility] [address] Main [place]ld[place] [address] Omar Caceres MD 12/13/2024 Travel 12/10/2024 Documentation [facility] - Radiation Oncology [facility] Main Bldg, 9th [place] [address] Raj Oneal MD 12/06/2024 12:08 PM CDT - 12/06/2024 11:59 PM CDT Hospital Encounter [facility] [address] [facility] [facility] Main [place] [address] Raj Oneal MD 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; Small cell carcinoma, NOS of upper lobe, lung <Right> Discharge Disposition: Home 12/06/2024 11:16 AM CDT - 12/06/2024 12:07 PM CDT Hospital Encounter [facility] [address] Main Bldg, 1st [place]oo [place] [address] Raj Oneal MD 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 Discharge Disposition: Home 12/06/2024 Documentation [facility] [address] Main Bldg, 9th [place] [address] Raj Oneal MD 12/06/2024 Documentation [facility] [address] Main Bldg, 9th [place] [address] Raj Oneal MD 12/06/2024 Travel 12/02/2024 Case Management Case Management [address] [place] [address] Bernadette Ellison, RN 11/29/2024 Case Management Case Management [address] [place] [address] Bernadette Ellison, RN 11/23/2024 12:52 PM CDT - 11/23/2024 11:59 PM CDT Hospital Encounter [facility] [address] Main [address]ldg, 9th Floor Elevator [address] [place] [phone] Henrique Plasencia MD Qian, David, MD 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 (Primary Dx) Discharge Disposition: Home 11/23/2024 Telephone [facility] [address], 1st [place]oo [place] [address] Alf Boyd RN 11/17/2024 Telephone [facility]iop[facility] Center - Pulmonology Procedures [address], 6th [place] [address] Giorgi Cope DO 11/17/2024 Orders Only [facility] Oncology [address], 9th [place] [address] Stella Clark APRN Small cell carcinoma, NOS of upper lobe, lung <Right> (Primary Dx) 11/15/2024 Orders Only [facility]cology [address] Main Bldg, 9th [place] [address] Henrique Plasencia MD 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 (Primary Dx) 11/11/2024 Orders Only [facility]cology [address] Main Bldg, 9th [place] [address] Stella Clark APRN Small cell carcinoma, NOS of upper lobe, lung <Right> (Primary Dx) 11/10/2024 4:30 PM CDT POEM Appointments [facility] [address] [place] [address], 6th [place] [address] Henrique Plasencia MD 11/10/2024 3:00 PM CDT Consult Cardiop[facility] Center - Pulmonology Medicine [address] [place] [address], 6th [place] [address] Sami Arnold MD Lin, Julie, MD Small cell carcinoma, NOS of upper lobe, lung <Right>; Shortness of breath 11/10/2024 1:07 PM CDT - 11/10/2024 11:59 PM CDT Hospital Encounter Diagnostic Laboratory Center [address] [place] [address] Lela Sanon APRN Small cell carcinoma of lung <Unspecified side>; Abnormal findings on diagnostic imaging of lung Discharge Disposition: Home 11/10/2024 Travel 11/09/2024 11:59 PM CDT Anesthesia Event [facility] [address] [place] [address], [facility] Floor Elevator [address] [place] [phone] Marta Ruiz RN 11/03/2024 Prep for Surgery [facility] - Pulmonology Medicine [address] [place] [address], 6th Floor Elevator [place] [phone] Lela Sanon APRN Small cell carcinoma of lung <Unspecified side> (Primary Dx); Abnormal findings on diagnostic imaging of lung 11/03/2024 Telephone [facility] - Pulmonology Medicine [address] [place] [address], 6th [place] [address] Lela Sanon APRN 11/02/2024 4:00 PM CDT Follow-Up [facility] - Medical Oncology [address] [place] [address], 9th [place] [address] Henrique Plasencia MD Small cell carcinoma, NOS of upper lobe, lung <Right> 11/02/2024 12:45 PM CDT - 11/02/2024 11:59 PM CDT Hospital Encounter Diagnostic Laboratory Center [address] [place] [address] Stella Clark APRN Small cell carcinoma, NOS of upper lobe, lung <Right> Discharge Disposition: Home 11/02/2024 12:00 PM CDT Ancillary Procedure PET Imaging [facility], 6th [place] [address] Stella Clark APRN Small cell carcinoma, NOS of upper lobe, lung <Right> 11/02/2024 Travel 11/02/2024 Documentation Rapid Response Team [address] [place] [address] Evelyn Wyman RN 10/19/2024 1:30 PM CDT Follow-Up [facility] - [facility] Oncology [address] [place] [address], 9th [place] [address] Henrique Plasencia MD Small cell carcinoma, NOS of upper lobe, lung <Right> 10/19/2024 8:19 AM CDT - 10/19/2024 11:59 PM CDT Hospital Encounter CT Imaging and Diagnostic Imaging [address] [place] [address], 3rd [place] [address] Stella Clark APRN Small cell carcinoma, NOS of upper lobe, lung <Right> Discharge Disposition: Home 10/19/2024 8:18 AM CDT Hospital Encounter Diagnostic Laboratory Center [address] [place] [address] Stella Clark APRN Small cell carcinoma, NOS of upper lobe, lung <Right> Discharge Disposition: Home 10/19/2024 6:51 AM CDT - 10/19/2024 8:17 AM CDT Hospital Encounter Cardiopulmonary Center - Pulmonology Lab [address] [place] [address], 6th [place] [address] Fanny Canseco APRN Chronic obstructive pulmonary disease, not otherwise specified Discharge Disposition: Home 10/19/2024 6:49 AM CDT - 10/19/2024 6:50 AM CDT Hospital Encounter Cardiopulmonary Center - Pulmonology Lab [facility], 6th [place] [address] Fanny Canseco, SHANNEN Chronic obstructive pulmonary disease, not otherwise specified Discharge Disposition: Home 10/19/2024 Travel 09/23/2024 Orders Only [facility] Center - Pulmonology Medicine [address] [place] [address], 6th [place] [address] Fanny Canseco, SENIOR ELECTRICAL DESIGNER Chronic obstructive pulmonary disease, not otherwise specified (Primary Dx) 09/22/2024 4:30 PM CDT Follow-Up [facility] - Medical Oncology [address] [place] [address], 9th [place] [address] Henrique Plasencia MD Shortness of breath (Primary Dx); Small cell carcinoma, NOS of upper lobe, lung <Right> 09/22/2024 3:30 PM CDT Ancillary Procedure [facility] Outpatient [facility] [address] [place] [address], 7th [place] [address] Stella Clark APRN Small cell carcinoma, NOS of upper lobe, lung <Right> 09/22/2024 2:38 PM CDT - 09/22/2024 11:59 PM CDT Hospital Encounter [facility] Laboratory Center [address] [place] [address] Stella Clark APRN Small cell carcinoma, NOS of upper lobe, lung <Right> Discharge Disposition: Home 09/22/2024 Travel 09/13/2024 Orders Only [facility] - [facility] Oncology [address] [place] [address], 9th [place] [address] Stella Clark APRN Small cell carcinoma, NOS of upper lobe, lung <Right> (Primary Dx) 09/10/2024 Telephone [facility] - [facility] Oncology [address] [place] [address], 9th [place] [address] Sara Browning, ELLA 09/03/2024 Orders Only [facility] [address] [place] [address] Main [facility], 9th [place] [address] Stella Clark APRN 09/02/2024 1:00 PM CONCRETE BUCKET UNLOADER Telemedicine [facility] [address] [place] [address] Main [facility], 9th [place] [address] Stella Clark APRN 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 (Primary Dx) 09/01/2024 Orders Only [facility] [address] [place] [address] Main [facility], 9th [place] [address] Henrique Plasencia MD 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 (Primary Dx) 08/30/2024 Telephone [facility] [address] [place] [address] Main [facility], 9th [place] [address] Ileana Thrasher RN 08/25/2024 12:00 PM CONCRETE BUCKET UNLOADER Follow-Up [facility] [address] [place] [address] Main [facility], 9th [place] [address] Henrique Plasencia MD Upper respiratory infection, not otherwise specified (Primary Dx); Small cell carcinoma, NOS of upper lobe, lung <Right> 08/25/2024 8:55 AM CONCRETE BUCKET UNLOADER - 08/25/2024 11:59 PM CONCRETE BUCKET UNLOADER Hospital Encounter CT Imaging and Diagnostic Imaging [address] [place] [address], 3rd [place] [address] Stella Clark APRN Small cell carcinoma, NOS of upper lobe, lung <Right> Discharge Disposition: Home 08/25/2024 8:00 AM CONCRETE BUCKET UNLOADER - 08/25/2024 8:54 AM CONCRETE BUCKET UNLOADER Hospital Encounter Diagnostic Laboratory Center [address] [place] [address] Stella Clark APRN Small cell carcinoma, NOS of upper lobe, lung <Right> Discharge Disposition: Home 08/25/2024 Orders Only [facility] - Medical Oncology [facility], 9th [place] [address] Stella Clark APRN Upper respiratory infection, not otherwise specified (Primary Dx) 08/25/2024 Travel 05/20/2024 Documentation Rehabilitation Services [facility], 1st Floor G1.[address] [place] [address] Lilly Berry, PT 05/19/2024 12:30 PM CONCRETE BUCKET UNLOADER Follow-Up [facility] - Medical Oncology [facility], 9th [place] [address] Henrique Plasencia MD Small cell carcinoma, NOS of upper lobe, lung <Right> 05/19/2024 7:50 AM CONCRETE BUCKET UNLOADER Ancillary Procedure CT Imaging [address] [facility], 7th [place] [address] Henrique Plasencia MD Small cell carcinoma, NOS of upper lobe, lung <Right> 05/19/2024 7:30 AM CONCRETE BUCKET UNLOADER - 05/19/2024 11:59 PM CONCRETE BUCKET UNLOADER Hospital Encounter Diagnostic Laboratory Center [address] [place] [address] Henrique Plasencia MD Small cell carcinoma, NOS of upper lobe, lung <Right> Discharge Disposition: Home 05/19/2024 Orders Only [facility] - Medical Oncology [address] [place] [address], 9th [facility] [place] [address] Stella Clark APRN Small cell carcinoma, NOS of upper lobe, lung <Right> (Primary Dx) 05/19/2024 Travel 05/10/2024 Telephone [facility] - Medical Oncology [address] [place] [address], 9th [facility] [place] [address] Daisy Shaffer RN after 03/25/2024 Immunizations Immunization Administration Dates Next Due Influenza, high dose, trivalent, preservative fr ee 03/29/2020 Pneumococcal Polysaccharide PPSV23 03/24/2022 Zoster Recombinant 03/29/2020 Surgical History Surgery Date Site/Laterality Comments AL EGD BALLOON DILATION ESOPHAGUS <30 MM DIAM 09/29/2020 Esophagus/N/A Procedure: UPPER GASTROINTESTINAL ENDOSCOPY WITH BALLOON DILATION OF ESOPHAGUS; Surgeon: Owen Leonard MD; Location: MAIN ENDOSCOPY; Service: GASTROENTEROLOGY AL EGD PERCUTANEOUS PLACEMENT GASTROSTOMY TUBE 09/29/2020 Abdomen/N/A Procedure: UPPER GASTROINTESTINAL ENDOSCOPY WITH DIRECTED PLACEMENT OF PERCUTANEOUS (PEG) GASTROSTOMY TUBE; Surgeon: Owen Leonard MD; Location: MAIN ENDOSCOPY; Service: GASTROENTEROLOGY AL BRNCHSC W/BRNCL ALVEOLAR LAVAGE 10/23/2020 N/A Procedure: FLEXIBLE BRONCHOSCOPY WITH BRONCHIAL ALVEOLAR LAVAGE; Surgeon: Krys Brewer MD; Location: MAIN PULM PROC; Service: PULMONARY AL PERQ REPLACEMENT GTUBE NOT REQ REVJ GSTRST TRC 05/21/2021 N/A Procedure: REPLACEMENT OF GASTROSTOMY TUBE, PERCUTANEOUS, INCLUDES REMOVAL, WHEN PERFORMED, WITHOUT IMAGING OR ENDOSCOPIC GUIDANCE; NOT REQUIRING REVISION OF GASTROSTOMY TRACT; Surgeon: Neha Tobin MD; Location: MAIN ENDOSCOPY; Service: GASTROENTEROLOGY AL EGD TRANSORAL BIOPSY SINGLE/MULTIPLE 10/19/2021 Esophagus/N/A Procedure: [...] Care Team (Late st Contact Info) Description 04/01/2025 7:[address] Imaging and Diagnostic Imaging [facility], 3rd [place] [address] Brisa Ward APRN [address] [place] [address] [email or web address] 04/01/2025 11:15 AM CDT Appointment Radiation Treatment Center [address] [facility], 1st [place] [place] [address] Raj Oneal MD [address] [place] [address] [email or web address] Health Maintenance Due Date Last Done Comments [...] W CONTRAST Routine 08/25/2024 1 0:50 AM CONCRETE BUCKET UNLOADER Small cell carcinoma, NOS of upper lobe, lung <Right> .CBC Routine 08/25/2024 8:55 AM CONCRETE BUCKET UNLOADER Small cell carcinoma, NOS of upper lobe, lung <Right> URIC ACID Routine 08/25/2024 8:55 AM CONCRETE BUCKET UNLOADER Small cell carcinoma, NOS of upper lobe, lung <Right> MAGNESIUM LEVEL Routine 08/25/2024 8:55 AM CONCRETE BUCKET UNLOADER Small cell carcinoma, NOS of upper lobe, lung <Right> COMPREHENSIVE METABOLIC PANEL Routine 08/25/2024 8:55 AM CONCRETE BUCKET UNLOADER Small cell carcinoma, NOS of upper lobe, lung <Right> COMPLETE BLOOD COUNT W/ DIFFERENTIAL Routine 08/25/2024 8:55 AM CONCRETE BUCKET UNLOADER Small cell carcinoma, NOS of upper lobe, lung <Right> CT CHEST W CONTRAST Routine 05/19/2024 9 :10 AM CONCRETE BUCKET UNLOADER Small cell carcinoma, NOS of upper lobe, lung <Right> POC CREATININE Routine 05/19/2024 8:29 AM CONCRETE BUCKET UNLOADER .CBC Routine 05/19/2024 8:27 AM CONCRETE BUCKET UNLOADER Small cell carcinoma, NOS of upper lobe, lung <Right> COMPREHENSIVE METABOLIC PANEL Routine 05/19/2024 8:27 AM CONCRETE BUCKET UNLOADER Small cell carcinoma, NOS of upper lobe, lung <Right> COMPLETE BLOOD COUNT W/ DIFFERENTIAL Routine 05/19/2024 8:27 AM CONCRETE BUCKET UNLOADER Small cell carcinoma, NOS of upper lobe, lung <Right> after 03/25/2024 Results * X-ray Shoulder 2+ Views Left [...] - 10.5 K/uL 01/28/2025 5:03 PM CDT [facility] Red Blood Cell 3.18(L) 4.30 - 6.04 M/uL 01/28/2025 5:03 PM CDT [facility] Hemoglobin 9.1(L) 13.3 - 17.4 g/dL 01/28/2025 5:03 PM CDT [facility] Hematocrit 27.4(L) 39.5 - 51.8 % 01/28/2025 5:03 PM CDT [facility] Mean Cell Volume 86 82 - 99 fL 01/28/2025 5:03 PM CDT [facility] Mean Cell Hemoglobin 28.6 26.6 - 33.2 pg 01/28/2025 5:03 PM CDT [facility] Mean Cell Hemoglobin Concentration 33.2 31.1 - 35.2 g/dL 01/28/2025 5:03 PM CDT [facility] RDW-SD 43.9 37.5 - 49.7 fL 01/28/2025 5:03 PM CDT [facility] Red Cell Diameter Width 13.9 11.6 - 15.5 % 01/28/2025 5:03 PM CDT [facility] Platelet 351 160 - 397 K/uL 01/28/2025 5:03 PM CDT [facility] Mean Platelet Volume 9.4 9.1 - 12.6 fL 01/28/2025 5:03 PM CDT [facility] INRBC 0.0 0.0 - 0.1 /100 WBC 01/28/2025 5:03 PM CDT [facility] Comment: The INRBC value reflects the enumeration of nucleated red blood cells contained in a 200uL sample of whole blood analyzed by the instrument. This value may differ from the NRBC value reported in a manual diff, which is based on a 100 cell differential. Neutrophil % 63.4 43.2 - 72.7 % 01/28/2025 5:03 PM CDT [facility] Lymphocyte % 27.9 16.8 - 46.2 % 01/28/2025 5:03 PM CDT [facility] Monocyte % 8.3 5.1 - 12.5 % 01/28/2025 5:03 PM CDT [facility] Eosinophil % 0.0(L) 0.4 - 6.3 % 01/28/2025 5:03 PM CDT [facility] Basophil % 0.1(L) 0.2 - 1.4 % 01/28/2025 5:03 PM CDT [facility] IGRE % 0.3 0.1 - 1.5 % 01/28/2025 5:03 PM CDT [facility] Comment:The IGRE% includes M etamyelocytes, Myelocytes and Promyelocytes. Neutrophil Abs 5.83 1.95 - 7.25 K/uL 01/28/2025 5:03 PM CDT [facility] Lymphocyte Abs 2.56 1.01 - 3.24 K/uL 01/28/2025 5:03 PM CDT [facility] Monocyte Abs 0.76 0.24 - 0.85 K/uL 01/28/2025 5:03 PM CDT [facility] Eosinophil Abs 0.00(L) 0.02 - 0.50 K/uL 01/28/2025 5:03 PM CDT [facility] Basophil Abs 0.01(L) 0.02 - 0.09 K/uL 01/28/2025 5:03 PM CDT [facility] IG Abs 0.03 0.01 - 0.12 K/uL 01/28/2025 5:03 PM CDT [facility] Blood Peripheral blood specimen / Unknown Venipuncture / Unknown 01/28/2025 4:33 PM CDT 01/28/2025 4:43 PM CDT us Modesta Nicolas MD LAB BLOOD ORDERABLES Final Resu lt Performing Organization Address [facility] Co de Phone Number [facility] [address] [place] [phone] * Procalcitonin (01/28/2025 4:33 PM CDT) Procalcitonin 0.05 <=0.08 ng/mL 01/28/2025 5:30 PM CDT [facility] Blood Peripheral blood specimen / Unknown Venipuncture / Unknown 01/28/2025 4:33 PM CDT 01/28/2025 4:43 PM CDT Narrative [facility] - 01/28/2025 5:30 PM CDT Procalcitonin > [...] with extended dilution as it exceeds the plastics tooling engineer's recommended limit. Caution should be exercised when interpreting such values and done in conjunction with clinical context. us Modesta Nicolas MD LAB BLOOD ORDERABLES Final Resu lt Performing Organization Address City/[facility]/ZIP Co de Phone Number [address] [address] * (ABNORMAL) Comprehensive Metabolic Panel (01/28/2025 4:33 PM CDT) Only the most recent of6 resultswithin the time period is included. Bilirubin Total <0.3 0.0 - 1.2 mg/dL 01/28/2025 5:30 PM CDT [facility] Comment:Indocyanine Green (I CG) may cause falsely elevated bilirubin results. Total and direct bilirubin must not be measured from samples containing indocyanine green. False elevation of total bilirubin can be seen in patients with IgG concentrations above 28 g/L. eGFR 105 >=60 mL/min/1. 73 sq. m 01/28/2025 5:30 PM CDT [facility] Comment: The eGFRcr is calculated with the [...] - 8.3 gm/dL 01/28/2025 5:30 PM CDT [facility] Calcium Level Total 9.0 8.2 - 10.2 mg/dL 01/28/2025 5:30 PM CDT [facility] Alkaline Phosphatase 94 40 - 129 U/L 01/28/2025 5:30 PM CDT [facility] Albumin Level 3.5 3.5 - 5.2 gm/dL 01/28/2025 5:30 PM CDT [facility] AST 13 <=40 U/L 01/28/2025 5:30 PM CDT [facility] ALT 11 <=41 U/L 01/28/2025 5:30 PM CDT [facility] Sodium Level 140 136 - 145 mmol/L 01/28/2025 5:30 PM CDT [facility] Potassium Level 3.5 3.4 - 4.5 mmol/L 01/28/2025 5:30 PM CDT [facility] Chloride 102 98 - 107 mmol/L 01/28/2025 5:30 PM CDT [facility] CO2 25 22 - 29 mmol/L 01/28/2025 5:30 PM CDT [facility] Anion Gap 13 4 - 14 mmol/L 01/28/2025 5:30 PM CDT [facility] Creatinine 0.58(L) 0.67 - 1.17 mg/dL 01/28/2025 5:30 PM CDT [facility] BUN 11 6 - 23 mg/dL 01/28/2025 5:30 PM CDT [facility] Glucose Level 84 70 - 99 mg/dL 01/28/2025 5:30 PM CDT [facility] Comment: Effective 01/24/16, the glucose reference intervals have been updated based on [place] [employer] guidelines (Standards of Medical Care [...] MD LAB BLOOD ORDERABLES Final Resu lt [facility] [address] [place] [address] * (ABNORMAL) Phosphorus Level (01/28/2025 4:33 PM CDT) Phosphorus Level 2.4(L) 2.5 - 4.5 mg/dL 01/28/2025 5:30 PM CDT [facility] Blood Peripheral blood specimen / Unknown Venipuncture / Unknown 01/28/2025 4:33 PM CDT 01/28/2025 4:43 PM CDT us Modesta Nicolas MD LAB BLOOD ORDERABLES Final Resu lt [address] [address] * Magnesium Level (01/28/2025 4:33 PM CDT) Only the most recent of3 resultswithin the time period is included. [facility] Magnesium Level 2.1 1.6 - 2.6 mg/dL 01/28/2025 5:30 PM CDT [facility] Blood Peripheral blood specimen / Unknown Venipuncture / Unknown 01/28/2025 4:33 PM CDT 01/28/2025 4:43 PM CDT us Modesta Nicolas MD LAB BLOOD ORDERABLES Final Resu lt [address] [address] * Respiratory Multiplex PCR Panel, Nasopharyngeal Swab (01/28/2025 4:04 PM CDT) [facility] Adenovirus Not Detected Not Detected 01/28/2025 5:09 PM CDT [facility] Coronavirus 229E Not Detected Not Detected 01/28/2025 5:09 PM CDT [facility] Coronavirus HKU1 Not Detected Not Detected 01/28/2025 5:09 PM CDT [facility] Coronavirus NL63 Not Detected Not Detected 01/28/2025 5:09 PM CDT [facility] Coronavirus OC43 Not Detected Not Detected 01/28/2025 5:09 PM CDT [facility] COVID-19 (SARS-CoV-2) Not Detected Not Detected 01/28/2025 5:09 PM CDT [facility] Human Metapneumovirus Not Detected Not Detected 01/28/2025 5:09 PM CDT [facility] Human Rhinovirus/Enterov irus Not Detected Not Detected 01/28/2025 5:09 PM CDT [facility] Influenza A Not Detected Not Detected 01/28/2025 5:09 PM CDT [facility] Influenza A H1 Not Detected Not Detected 01/28/2025 5:09 PM CDT [facility] Influenza A H1 2009 Not Detected Not Detected 01/28/2025 5:09 PM CDT [facility] Influenza A H3 Not Detected Not Detected 01/28/2025 5:09 PM CDT [facility] Influenza B Not Detected Not Detected 01/28/2025 5:09 PM CDT [facility] Parainfluenza Virus 1 Not Detected Not Detected 01/28/2025 5:09 PM CDT [facility] Parainfluenza Virus 2 Not Detected Not Detected 01/28/2025 5:09 PM CDT [facility] Parainfluenza Virus 3 Not Detected Not Detected 01/28/2025 5:09 PM CDT [facility] Parainfluenza Virus 4 Not Detected Not Detected 01/28/2025 5:09 PM CDT [facility] Respiratory Syncytial Virus Not Detected Not Detected 01/28/2025 5:09 PM CDT [facility] Bordetella parapertussis Not Detected Not Detected 01/28/2025 5:09 PM CDT [facility] Bordetella pertussis Not Detected Not Detected 01/28/2025 5:09 PM CDT [facility] Chlamydophila pneumoniae Not Detected Not Detected 01/28/2025 5:09 PM CDT [facility] Mycoplasma pneumoniae Not Detected Not Detected 01/28/2025 5:09 PM CDT [facility] Swab Nasopharyngeal structure / Unknown Non-blood Collection / Unknown 01/28/2025 4:04 PM CDT 01/28/2025 4:12 PM CDT [facility] - 01/28/2025 5:09 PM CDT The assay is a qualitative multiplex PCR assay to aid in the diagnosis of respiratory pathogens through simultaneous qualitative detection and identification of multiple pathogens directly from nasopharyngeal swabs (STAFF NUCLEAR MEDICINE TECHNOLOGIST) from individuals with respiratory symptoms. Testing is performed using the [employer] FilmArray Respiratory Panel 2.1 (RP2.1) on the [employer]® Mangiach® System. The following organisms are identified using [...] verified by the microbiology laboratory at the [facility] (CLIA Accreditation # [id number] and CAP Accreditation # [id number]). Results must be interpreted within the context of all relevant clinical and laboratory findings. Assay should not be used for monitoring response to therapy. us Modesta Nicolas MD MICROBIOLOGY - GENERAL ORDERABL ES Final Result Performing Organization Address City/State/[facility] Co de Phone Number [facility] [address] [place] [address] * CT Thoracic Simulation without Contrast (12/06/2024 1:32 PM CDT) Narrative Systemgenerated, Documentation - 12/06/2024 1:32 PM CDT This procedure requires no interpretation from the radiologist. us Raj Oneal MD IMG RO CT SIM ORDERABLES Final R esult * Prothrombin Time with INR (11/10/2024 1:22 PM CDT) Prothrombin Time 13.8 12.2 - 14.4 second(s) 11/10/2024 1:58 PM CDT [facility] International Normalization Ratio 1.09 0.91 - 1.10 11/10/2024 1:58 PM CDT [facility] Blood Peripheral blood specimen / Unknown Venipuncture / Unknown 11/10/2024 1:22 PM CDT 11/10/2024 1:23 PM CDT us Lela Ramírez Fab SENIOR ELECTRICAL DESIGNER LAB BLOOD ORDERABLES Final R esult [facility] Unless otherwise noted, all lab tests performed by: Division of Pathology and Laboratory Medicine [address] [place] [id number] * PETCT F18 FDG (Fluorodeoxyglucose) without contrast [...] - 99 mg/dL 11/02/2024 10:20 AM CDT [facility] POC Sample Type Venous 11/02/2024 10:20 AM CDT [facility] Blood 11/02/2024 10:1 8 AM CDT 11/02/2024 10:20 AM CDT Narrative [facility] - 11/02/2024 10:20 AM CDT Capillary blood [...] POCT ORDERABLES - DEVICE F inal Result [facility] Unless otherwise noted, all lab tests performed by: Division of Pathology and Laboratory Medicine [address] [place] [address] * CT Chest with Contrast (10/19/2024 10:26 [...] at least. There is little or no exchange floor manager a couple of years. Upper abdomen: Wire [...] at least. There is little or no exchange floor manager a couple ofyears. Upper abdomen: Wire biliary [...] - 1.3 mg/dL 10/19/2024 9:29 AM CDT [facility] Comment:Medications, especia lly hydroxyurea or supplements, such as ascorbate, can interfere with test results causing a falsely and significantly higher result than expected. If a problem is suspected with a patient's result, a sample should be sent to the laboratory for confirmatory testing. POC eGFR 104 >=60 mL/min/1.7 3 sq. m 10/19/2024 9:29 AM CDT [facility] Comment: The eGFRcr is calculated with the [...] AM CDT 10/19/2024 9:29 AM CDT Narrative [facility] - 10/19/2024 9:29 AM CDT Method description: [...] POCT ORDERABLES - DEVICE Fin al Result [facility] Unless otherwise noted, all lab tests performed by: Division of Pathology and Laboratory Medicine [address] [place] [address] * Uric Acid (10/19/2024 9:26 AM CDT) Only the most recent of2 resultswithin the time period is included. Uric Acid 3.7 3.4 - 7.0 mg/dL 10/19/2024 11:30 AM CDT [facility] Blood Peripheral blood specimen / Unknown Venipuncture / Unknown 10/19/2024 9:26 AM CDT 10/19/2024 10:39 AM CDT Stella Amber SENIOR ELECTRICAL DESIGNER LAB BLOOD ORDERABLES Final Result [facility] Unless otherwise noted, all lab tests performed by: Division of Pathology and Laboratory Medicine [facility] [place] [address] * (ABNORMAL) SPIROMETRY W/O DILATORS AND BODY PLETHSMOGRAPHIC LUNG VOLUMES (10/19/2024 8:12 AM CDT) Pathologist [facility] FVC (L) pre 2.44 2.34 - 3.97 [...] 23 % 10/19/2024 4:26 PM CDT [facility] GME04-54%_PREZ -SCORE -2.53 10/19/2024 4:26 PM CDT [facility] [...] 7:38 AM CDT us Fanny N Ajith SENIOR ELECTRICAL DESIGNER PFT ORDERABLES Final Result [facility] * (ABNORMAL) 6 minute walk test (10/19/2024 7:38 AM CDT) [facility] 6MWD_Test 160.00(L) 331.72 - 637.72 m 10/19/2024 7:38 AM CDT [facility] Dist. final_Test 40.00 m 10/19/2024 7:38 AM CDT [facility] Laps_Test 2.00 10/19/2024 7:38 AM CDT [facility] Pauses_Test 0.00 10/19/2024 7:38 AM CDT [facility] SpO2min_Test 94.00 % 10/19/2024 7:38 AM CDT [facility] Bu72_Xhav 0.00 min 10/19/2024 7:38 AM CDT [facility] HRmax_Test 109.00 BPM 10/19/2024 7:38 AM CDT [facility] O2 Flow_Test 2.00 L/min 10/19/2024 7:38 AM CDT [facility] Lap Dist_Test 60.00 m 10/19/2024 7:38 AM CDT [facility] Dyspnea_Baseli ne 1.00 10/19/2024 7:38 AM CDT [facility] Exertion_Basel ine 1.00 10/19/2024 7:38 AM CDT [facility] SpO2_Baseline 100.00 % 10/19/2024 7:38 AM CDT [facility] Xd57_Ppkiurkb 0.00 min 10/19/2024 7:38 AM CDT [facility] [...] 100.00 % 10/19/2024 7:38 AM CDT [facility] Kr44_Ibwrzvyl 0.00 min 10/19/2024 7:38 AM CDT [facility] HR_Recovery 79.00 1/min 10/19/2024 7:38 AM CDT [facility] HRmax_Recovery 103.00 BPM 10/19/2024 7:38 AM CDT [facility] BP Sys_Recovery 112.00 mmHg 10/19/2024 7:38 AM CDT [facility] BP Dia_Recovery 78.00 mmHg 10/19/2024 7:38 AM CDT [facility] O2 Flow_Recovery 2.00 L/min 10/19/2024 7:38 AM CDT [facility] 10/19/2024 7:04 AM CDT us Fanny N Ajith SENIOR ELECTRICAL DESIGNER PFT ORDERABLES Final Result [facility] * X-[facility] Chest 2 Views (09/22/2024 3:35 [...] [facility] Metamyelocyte % 4:09 PM CDT [facility] Comment:The Metamyelocyte co unt includes Myelocytes. Manual Neutrophil Abs 4.09 1.95 - 7.25 K/uL 09/22/2024 4:09 PM CDT [facility] Manual Lymphocyte Abs 4.19(H) 1.01 - 3.24 K/uL 09/22/2024 4:09 PM CDT [facility] Manual Monocyte Abs 0.37 0.24 - 0.85 K/uL 09/22/2024 4:09 PM CDT [facility] Manual Eosinophil Abs 0.56(H) 0.02 - 0.50 K/uL 09/22/2024 4:09 PM CDT [facility] Manual Basophil Abs 0.09 0.02 - 0.09 K/uL 09/22/2024 4:09 PM CDT [facility] RBC Morphology PRESENT 09/22/2024 4:09 PM CDT [facility] PLT Morph Normal Normal 09/22/2024 4:09 PM T [facility] Schistocyte Few 09/22/2024 4:09 PM T [facility] Anisocytosis Present(A) (none) 09/22/2024 4:09 PM [facility] Ovalocyte Present(A) (none) 09/22/2024 4:09 PM T [facility] Casscoe Cells Present(A) (none) 09/22/2024 4:09 PM [facility] Blood Peripheral blood specimen / Unknown Venipuncture / Unknown 09/22/2024 2:50 PM CDT 09/22/2024 2:51 PM CDT Stella Clark SENIOR ELECTRICAL DESIGNER LAB BLOOD ORDERABLES Final Result [facility] [address] [facility] [place] [address] after 03/25/2024 Insurance * Guarantor: Chato Moreno IV Account Type Relation to Patient Date of Phone Billing Address Personal/Family Self 1955 [address] [facility] [address] [place] [address] [employer] [address] [place] [address] [employer] Advance Directives * Full Code (Latest Code [...] 1:08 AM 01/30/2021 8:41 PM Care Teams Oxygen Equipment Preparer Relationship Specialty Start Date End Date Carl Jones MD [address] [facility] [address] [place] [address] PCP - External Primary Care Provider Family Practice 02/14/20 [place] [address] [place] [phone] [email or web address] PCP - General Thoracic Medicine 04/21/20 Kang Piedra MD [address] [place] [phone] [email or web address] PCP - External Follow Up C Dermatology 06/12/20 Mary Beth Hinson [facility]/MEDICAL INTERPRETER [address] [place] [phone] [email or web address] Speech Language Pathologist Speech Pathology 04/16/21 Clay Hernandez MD [address] [place] [phone] [email or web address] Consulting Physician Pulmonary Medicine 03/31/20 Kang Monreal MD [address] [place] [phone] [email or web address] Consulting Physician Hematology and Oncology 04/16/21 Patrick Huerta MD [address] [place] [id number] [email or web address] Consulting Physician Dermatology 05/18/20 Daisy Garay MD [address] [place] [address] [email or web address] Consulting Physician Pulmonary Medicine 11/10/24 Raj Oneal MD [address] [place] [address] [email or web address] Consulting Physician Radiation Oncology 11/23/24
[2025-03-25] MEDS ORDERED: HYDROCODONE/APAP 10/325 TAB ONE (08:53)
--- NOTE | 2025-03-25 09:48 | RAD REPORT ---
EXAMINATION: CT CHEST WITHOUT CONTRAST CLINICAL INDICATION: CHEST PAIN TECHNIQUE: Routine CT scan of the chest without intravenous contrast. One or more of the following do se reduction techniques were used: Automated exposure control, adjustment of the mA and/or kV according to patient size, and/or iterative reconstruction. Unless otherwise specified, incidental fi ndings do not require dedicated imaging follow-up. COMPARISON: 03/19/2025 FINDINGS: LOWER NECK: Visualized thyroid gland and soft tissues are normal. LUNGS: Advanced COPD with areas of scarring right apex and lingula bronchiectasis. This appears uncha nged. Previously noted reticular opacities left base appear moderately improved. PLEURA: No pleural effusion. No pneumothorax. . MEDIASTINUM AND LYMPH NODES: No mediastinal mass or fluid collection. Normal size mediastinal, hilar, and axillary lymph nodes. OSSEOUS STRUCTURES AND CHEST WALL: Intact. Diffuse osteopenia. UPPER ABDOMEN: Partially visualized common duct stent. IMPRESSION: Advanced COPD with areas of scarring as described. Moderate improvement in left base infiltrate since the comparative study. Examination limited by lack of IV contrast.
--- NOTE | 2025-03-25 09:50 | ER ---
Nurse's Notes [facility] Name: Chato Moreno IV Age: 69 yrs Sex: Male : 1955 Arrival Date: 03/25/2025 Time: 08:19 Bed 15 Private MD: Diagnosis: Lobar pneumonia, unspecified organism;Pleurisy Presentation: 03/25 08:25 Chief complaint: EMS states: SHORTNESS OF BREATH, H/O COPD AND LUNG CA, H/O bp NON-COMPLIANCE. Coronavirus screen: At this time, the client does not indicate any symptoms associated with coronavirus-19. Ebola Screen: No symptoms or risks identified at this time. Initial Sepsis Screen: Does the patient meet any 2 criteria? RR > 20 per min. No. Patient's initial sepsis screen is negative. Does the patient have a suspected source of infection? No. Patient's initial sepsis screen is negative. Risk Assessment: Do you want to hurt yourself or someone else? Patient reports no desire to harm self or others. Onset of symptoms is unknown. Care prior to arrival: Oxygen administered. via nasal cannula. 08:25 Method Of Arrival: EMS: [facility] bp 08:25 Acuity: STEWART 3 bp Triage Assessment: 08:26 General: Appears in no apparent distress. ill, unkempt, Behavior is cooperative, bp appropriate for age, anxious. Pain: Denies pain. EENT: No deficits noted. Neuro: No deficits noted. Cardiovascular: Rhythm is sinus rhythm. Respiratory: Reports shortness of breath Breath sounds with wheezes bilaterally. Onset: The symptoms/episode began/occurred at an unknown time. the patient has moderate shortness of breath. GI: No signs and/or symptoms were reported involving the gastrointestinal system. : No signs and/or symptoms were reported regarding the genitourinary system. Derm: No deficits noted. Musculoskeletal: No deficits noted. Historical: - Allergies: 08: No Known Allergies; bp - PMHx: : Atrial fibrillation; hypotension (Pneumonia); Lung Cancer; Emphysema; COPD; Pneumonia; bp - PSHx: 08: Cholecystectomy; bp - Immunization history:: Adult Immunizations up to date. - Infectious Disease History:: Denies. - Social history:: Smoking status: unknown. Assessment: 11:02 Reassessment: attempt to discharge pt, states I want to speak to the doctor, y'all sent iw my home last week and I about ". Vital Signs: 08:25 BP 114 / 70; Pulse 88; Resp 24; Temp 97.5; Pulse Ox 98% on 2 lpm NC; bp ED Course: 08:25 Patient arrived in ED. bp 08:26 [facility] 08:26 Adriano Isaac MD is Attending Physician. sb4 08:26 Triage completed. bp 08:26 Arm band placed on. bp 09:[address] In Process Unspecified. EDMS 11:43 Anais Lozano, RN is Primary Nurse. iw Administered Medications: 09:05 Drug: [place] PO 10 mg-325 mg 1 tabs PO once Route: PO; hb Outcome: 09:49 Discharge ordered by . sb4 11:43 Patient left the ED. iw Signatures: Dispatcher [employer] EDMS Kristen Price RN RN Anais Lozano, RN RN Joel Stark RN RN Larissa Santa PA-C PA-C sb4
--- NOTE | 2025-03-25 09:50 | EDPHYS ---
Physician Documentation [facility] Name: Chato Moreno IV Age: 69 yrs Sex: Male : 1955 Arrival Date: 03/25/2025 Time: 08:19 Bed 15 Private MD: ED Physician Adriano Isaac HPI: 03/25 08:55 This 69 yrs old Male presents to ER via EMS with complaints of Shortness Of Breath. sb4 08:55 Patient reports with complaints of pain in left ribs. He does have an extensive medical sb4 history of lung cancer, emphysema, COPD, on home oxygen. Was seen here 6 days ago and diagnosed with pneumonia. States that he just picked his antibiotics up yesterday. States the pain on his left side developed yesterday. Denies any trauma to the area, but reports pain with inspiration, cough, any movement. Denies any hemoptysis. Historical: - Allergies: 08:26 No Known Allergies; bp - PMHx: 08:26 Atrial fibrillation; hypotension (Pneumonia); Lung Cancer; Emphysema; COPD; Pneumonia; bp - PSHx: 08:26 Cholecystectomy; bp - Immunization history:: Adult Immunizations up to date. - Infectious Disease History:: Denies. - Social history:: Smoking status: unknown. ROS: 08:55 Constitutional: Negative for fever, chills, and weight loss, sb4 08:55 Respiratory: Positive for per HPI, 08:55 All other systems are negative, Exam: 08:55 Head/Face: Normocephalic, atraumatic. Eyes: Extra-ocular motions intact. Periorbital sb4 areas with no swelling, redness, or edema. 08:55 Cardiovascular: Regular rate and rhythm with a normal S1 and S2. Respiratory: No increased work of breathing, no retractions or nasal flaring. Skin: Warm, dry with normal turgor. Normal color with no rashes, no lesions, and no evidence of cellulitis. 08:55 Constitutional: The patient appears alert, awake, frail, obviously ill, 08:55 ENT: Mouth: Oral mucosa: dry, 08:55 Respiratory: Breath sounds: rhonchi, that are mild, are scattered, Vital Signs: 08:25 BP 114 / 70; Pulse 88; Resp 24; Temp 97.5; Pulse Ox 98% on 2 lpm NC; bp MDM: 08:26 Medical Screening Exam initiated sb4 08:56 Differential diagnosis: pneumonia, rib contusion, rib fracture, pleurisy. sb4 09:50 Antibiotic administration: Not indicated, the patient is already taking antibiotics. sb4 Data reviewed: vital signs, nurses notes, EMS record, radiologic studies, and as a result, I will discharge patient. Care significantly affected by the following chronic conditions: Chronic Obstructive Pulmonary Disease, Cancer. Counseling: I had a detailed discussion with the patient and/or guardian regarding the historical points, exam findings, and any diagnostic results supporting the discharge/admit diagnosis, radiology results, the need for outpatient follow up, for definitive care, to return to the emergency department if symptoms worsen or persist or if there are any questions or concerns that arise at home. 03/25 08:41 Order name: Chest Wo Con CT; Complete Time: 09:49 sb4 Administered Medications: 09:05 Drug: [place] PO 10 mg-325 mg 1 tabs PO once Route: PO; hb Disposition Summary: 03/25/25 09:49 Discharge Ordered Notes: Location: Home sb4 Problem: an ongoing problem sb4 Symptoms: have improved sb4 Condition: Stable sb4 Diagnosis - Lobar pneumonia, unspecified organism sb4 - Pleurisy sb4 Followup: sb4 - With: Emergency Department - When: As needed - Reason: Trouble breathing, Worsening of condition Discharge Instructions: - Discharge Summary Sheet sb4 - Pleurisy sb4 - Community-Acquired Pneumonia, Adult sb4 Forms: - Patient Portal Instructions sb4 - Leadership Thank You Letter sb4 Signatures: Dispatcher [employer] Anais Elliott RN RN Joel Stark RN RN bp Brown, Sophia, PA-C PA-C sb4 Corrections: (The following items were deleted from the chart) 08:56 08:31 Chest Pa And Lat (2 Views)+[email or web address] ordered. EDMS EDMS
[2025-03-25 12:19] VITALS: BP 114/70; TEMP 97.5; O2SAT 98
== END 2025-03-25 11:43 | disposition home or self-care (01) ==
LOC: ER 08:19
DX: J18.1 Lobar pneumonia, unspecified organism (principal); R09.1 Pleurisy; J44.9 Chronic obstructive pulmonary disease, unspecified; Z85.118 Personal history of other malignant neoplasm of bronchus and lung
CPT/HCPCS: 71250; 99283